=== PATIENT | female | born 1940 | race Caucasian/White ===

== ENCOUNTER 2021-04-27 15:25 | Emergency (ER) | payer MEDICARE, SELFPAY ==
[2021-04-27 15:26] VITALS: BP 119/74; PULSE 85; RESP 16; TEMP 36.7; O2SAT 95; BMI 28.3
--- NOTE | 2021-04-27 16:12 | RAD_ITS ---
STUDY: X-RAY CHEST REASON FOR EXAM: Female, 81 years old. cough DIARRHEA FOR A FEW DAYS WITH COUGH AND GENERALIZED WEAKNESS SINCE SANDRA. TECHNIQUE: Frontal portable view of the chest COMPARISON: None. FINDINGS: Mediastinal shadow is enlarged due to combination of probable cardiomegaly and large hiatal hernia. Retrocardiac portions of the lungs are obscured. There is mild increased interstitial markings in the right lower lung, probably atelectasis. Remainder the lungs are clear. There is no pneumothorax, pulmonary edema or pleural effusions. RAD/Chest 1 View (Portable) IMPRESSION: 1. Large hiatal hernia, probably cardiomegaly 2. Consider CT chest for definitive evaluation. 3. Questionable finding in the right lung, possibly atelectasis. Electronically Signed: Luc Aaron MD at 17:22 EDT Tel , Service support ,
--- NOTE | 2021-04-27 16:15 | ED.VIS.GI ---
HPI HPI - GI History of Present Illness Chief Complaint: Diarrhea Narrative Narrative: 81-year-old female presenting with general fatigue, cough, diarrhea. She states this is been worse over the last 3 days but she has had the symptoms for 7 days. She has not had a fever. She denies shortness of breath or chest pain. Patient has decreased p.o. intake which she states that is because she is not hungry. She states she has had multiple episodes of diarrhea. She has no known sick contacts with COVID-19. She has had her vaccine. Patient has not had fever, chills, body aches. Her granddaughter is here with her today and states she is very generally weak. She required assistance to get to the car and that is not normal for her. She also states that her grandmother's diet consists of crackers, tea, toast. Patient herself says she does drink a little bit of water but this not like to drink this. She has not been drinking any electrolyte drinks. She did have a Sprite today which states made her feel better. [facility] Medical History GERD (gastroesophageal reflux disease) High cholesterol Hypertension Hypothyroidism Home Medications cephalexin 500 mg PO Q12 #14 capsule 04/27/21 [Rx Last Taken Unknown] ondansetron 4 mg PO Q8H PRN PRN #14 tab 04/27/21 [Rx Last Taken Unknown] Allergy/AdvReac Type Severity Reaction Status Date / Time No Known Allergies Allergy Verified 04/27/21 15:26 Social History Smoking Status: Current every day smoker tobacco type: cigarettes ROS ROS ED Constitutional Constitutional ED: Denies chills or fever(s) ENT ENT ED: Denies rhinorrhea or sore throat Cardiovascular Cardiovascular: Denies chest pain or palpitations Respiratory/Chest Respiratory/Chest: Reports cough; Denies dyspnea or sputum Gastrointestinal Gastrointestinal: Reports diarrhea; Denies abdominal pain, nausea or vomiting Genitourinary Genitourinary ED: Denies dysuria or hematuria Musculoskeletal Musculoskeletal: Denies arthralgias, back pain, myalgias or neck pain Integumentary Denies Abrasions or rash Neurologic Neurologic: Denies headache(s) or paresthesias EXAM Physical Exam Const Vital Signs: 04/27/21 15:26 04/27/21 18:52 04/27/21 20:18 Temperature 98.0 F Temperature Source Temporal Pulse Rate 85 82 Respiratory Rate 16 20 H 18 Blood Pressure 119/74 138/92 H Blood Pressure Mean 89 107 Pulse Ox 95 97 Oxygen Delivery Method Room Air Room Air 04/27/21 20:25 Temperature Temperature Source Pulse Rate Respiratory Rate 18 Blood Pressure Blood Pressure Mean Pulse Ox Oxygen Delivery Method Positive well nourished General Appearance ED: NAD; Negative for pallor HEENT Reports moist mucous membranes normocephalic and atraumatic Eyes PERRL and EOMs intact bilaterally Resp normal respiratory effort Cardio regular rate and regular rhythm Neuro CN's II-XII intact bilaterally and moves all extremities Sensorium / Orientation: alert, oriented to person, oriented to place and oriented to time Psych mental status grossly normal and thought process normal Skin no wounds General Skin Exam: Negative for jaundice or pallor Rashes: no rashes MDM MDM MDM Narrative Medical decision making narrative: Patient presenting with concern for COVID-19 as well as diarrhea. She has generalized weakness and was differential having difficulty getting around at home. She has not had any falls. Today she tested positive for COVID-19. Chest x-ray on my interpretation shows possible infiltrate in the right lower lobe otherwise there is no acute process. Radiologist does comment on this as well as a large hiatal hernia. Patient's blood work shows that she is leukopenic and lymphopenic. Otherwise her hemoglobin hematocrit are stable. Renal function and electrolytes are normal with exception of potassium of 3.2. Patient was given 500 cc of IV fluids prior to renal function returned due to her complaint of likely dehydration secondary to diarrhea. LFTs are normal. Procalcitonin is negative. Urinalysis is positive for infection. She was given Keflex with the first dose in the ED. She was also given Zofran she feels improved. At this point she really wants to be discharged home. I do not find any reason she needs to be in the hospital other than generalized weakness. Patient was given a prescription for Zofran and Keflex. She is given return precautions. Patient stable for discharge at this time. Impression: 1. Generalized weakness 2. COVID-19 pneumonitis 3. Urinary tract infection Lab Data Attestation: I reviewed the patient's lab results. Labs: Laboratory Results - last 24 hr 04/27/21 04/27/21 04/27/21 17:10 17:10 17:10 WBC 2.6 L RBC 3.65 L Hgb 11.6 L Hct 36.0 L MCV 98.6 MCH 31.8 MCHC 32.2 RDW Std Deviation 49.7 H RDW Coeff of [place]ouzia 13.5 Plt Count 131 L MPV 10.5 Immature Gran % (Auto) 0.400 Neut % (Auto) 61.9 Lymph % (Auto) 28.5 [place] % (Auto) 8.8 Eos % (Auto) 0.0 Baso % (Auto) 0.4 Absolute Neuts (auto) 1.6 L Absolute Lymphs (auto) 0.74 L Nucleated RBC % 0 Sodium 138 Potassium 3.2 L Chloride 105 Carbon Dioxide 27.0 Anion Gap 6 BUN 15 Creatinine 0.68 Estim Creat Clear Calc 35.88 Est GFR (MDRD) Af Amer 106 Est GFR (MDRD) Non-Af 87 BUN/Creatinine Ratio 21.9 H Glucose 94 Calcium 8.5 Total Bilirubin 0.40 AST 35 ALT 22 Alkaline Phosphatase 51 Total Protein 7.9 Albumin 3.5 Globulin 4.4 H Albumin/Globulin Ratio 0.8 L Procalcitonin 0.14 H Urine Color Urine Clarity Urine pH Ur Specific [place] Urine Protein Urine Glucose (UA) Urine Ketones Urine Occult Blood Urine Nitrite Urine Bilirubin Urine Urobilinogen Ur Leukocyte Esterase Urine RBC Urine WBC Ur Squamous Epith Cells Urine Bacteria Hyaline Casts Urine Mucus COVID-19 ([place]O) 04/27/21 04/27/21 17:16 18:20 WBC RBC Hgb Hct MCV MCH MCHC RDW Std Deviation RDW Coeff of [place] Plt Count MPV Immature Gran % (Auto) Neut % (Auto) Lymph % (Auto) [place] % (Auto) Eos % (Auto) Baso % (Auto) Absolute Neuts (auto) Absolute Lymphs (auto) Nucleated RBC % Sodium Potassium Chloride Carbon Dioxide Anion Gap BUN Creatinine Estim Creat Clear Calc Est GFR (MDRD) Af Amer Est GFR (MDRD) Non-Af BUN/Creatinine Ratio Glucose Calcium Total Bilirubin AST ALT Alkaline Phosphatase Total Protein Albumin Globulin Albumin/Globulin Ratio Procalcitonin Urine Color Yellow Urine Clarity Cloudy Urine pH 6.0 Ur Specific [place] 1.020 Urine Protein 100 H Urine Glucose (UA) Normal Urine Ketones 50 H Urine Occult Blood 150 H Urine Nitrite Negative Urine Bilirubin Negative Urine Urobilinogen 1 H Ur Leukocyte Esterase 500 H Urine RBC 0-5 SEEN Urine WBC 25-50 SEEN Ur Squamous Epith Cells 0-5 SEEN Urine Bacteria 4+ Hyaline Casts 0-5 SEEN Urine Mucus 0 SEEN COVID-19 ([place]) Detected Radiography Diagnostic Testing: Radiology Impression Chest X-Ray 04/27/21 16:12 IMPRESSION: 1. Large hiatal hernia, probably cardiomegaly 2. Consider CT chest for definitive evaluation. 3. Questionable finding in the right lung, possibly atelectasis. Electronically Signed: Luc Aaron MD at 17:22 EDT Tel , Service support , Discharge Plan Triage Chief Complaint: Diarrhea Other Complaint: Cough ED Provider: Lucius Middleton Dx/Rx/DC Orders Instructions: Coronavirus Disease 2019 (COVID-19): Caring for Yourself or Others, ED CYSTITIS Female Adult Prescriptions: New ondansetron 4 mg tablet,disintegrating 4 mg PO Q8H PRN PRN (Reason: Nausea) Qty: 14 RF: 0 cephalexin 500 mg capsule 500 mg PO Q12 Qty: 14 RF: 0 Primary Care Provider: Carl Roberts Referrals: Carl Roberts MD [Primary Care Provider] - Disposition Disposition: Home, Self Care Discharge Date/Time: 04/27/21 20:31
[2021-04-27 17:27] LABS: Absolute Lymphocyte Count 0.74 X10^3/uL (0.83-4.51); Absolute Neutrophil Count 1.6 X10^3/uL (2.0-7.7); Basophil# 0.01 X10^3/uL; Basophil% 0.4 % (0-1); Hemoglobin 11.6 g/dL (12.0-15.0); Lymphocyte # 0.74 X10^3/ul (0.83-4.51); Lymphocyte % 28.5 % (19-41); Mean Corp Hgb Conc 32.2 g/dL (32-36); Mean Corpuscular Hgb 31.8 pg (27.0-32.0); Mean Corpuscular Volume 98.6 fL (81-99); Mean Platelet Vol. 10.5 fl (6.2-12.0); Monocyte# 0.23 X10^3/uL; Monocyte% 8.8 % (0-10); NRBC Flagged by Analyzer 0 % (0-5); Neutrophil # 1.61 X10^3/uL (2.7-7.7); Neutrophil % 61.9 % (47-70); Platelet Count 131 K/mm3 (150-450); RBC Distribution Width CV 13.5 % (11.6-14.6); RBC Distribution Width SD 49.7 fl (35.1-43.9); Red Blood Count 3.65 M/mm3 (4.2-5.4); White Blood Count 2.6 K/mm3 (4.4-11.0)
[2021-04-27 17:42] LABS: ALB/GLOB Ratio 0.8 RATIO (0.9-2.4); AST(SGOT) 35 U/L (15-37); Alanine Aminotransfer ALT/SGPT 22 U/L (13-56); Albumin, Serum 3.5 g/dL (3.2-5.0); Alkaline Phosphatase 51 U/L (45-117); Anion Gap 6 (5-15); BUN 15 mg/dL (7-18); BUN/Creat Ratio 21.9 RATIO (10-20); Calcium,Total 8.5 mg/dL (8.5-10.1); Chloride 105 mmol/L (98-107); Creatinine, Serum 0.68 mg/dL (0.55-1.02); EST Glomerular Filtration Rate 87 mL/min (>60); Est Glom Filt Rate - Afr Amer 106 mL/min (>60); Estimated Creatinine Clearance 35.88 ml/min; Globulin 4.4 g/dL (2.2-4.2); Glucose 94 mg/dL (74-106); Potassium 3.2 mmol/L (3.5-5.1); Protein, Total 7.9 g/dL (6.4-8.2); Sodium Level 138 mmol/L (136-145)
[2021-04-27 17:59] LABS: Procalcitonin 0.14 ng/mL (0.00-0.09)
[2021-04-27 18:31] LABS: Mucous, Urine 0 SEEN /hpf (<or=2+)
[2021-04-27 18:50] LABS: Color, Urine Yellow (Yellow); Glucose, Dipstick Normal (Normal); Ketone-Dipstick 50 mg/dl (Negative); Leukocyte Esterase-Dipstick 500 /ul (Negative); Nitrite-Dipstick Negative (Negative); Occult Blood-Urine 150 /ul (Negative); Protein-Dipstick 100 mg/dl (Negative); Urine Bilirubin Dipstick Negative (Negative); Urine Clarity Cloudy (Clear); Urine Urobilinogen 1 mg/dl (Normal)
[2021-04-27 18:52] VITALS: BP 138/92; PULSE 82; RESP 20; O2SAT 97
[2021-04-27 19:19] LABS: Hyaline Cast 0-5 SEEN /lpf (0-5)
[2021-04-27 19:20] LABS: Bacteria 4+ /hpf (None Seen); Red Blood Cells-Urine 0-5 SEEN /hpf (0-5); White Blood Cells 25-50 SEEN /hpf (0-5)
[2021-04-27 19:21] LABS: Squamous Epithelial Cells - UA 0-5 SEEN /hpf (5-10)
[2021-04-27 20:18] VITALS: RESP 18
[2021-04-27] MEDS: Cephalexin 250 MG Capsule 500 MG PO (20:24)
[2021-04-27 20:25] VITALS: RESP 18
== END 2021-04-27 20:31 | disposition home or self-care (01) ==
PROVIDERS: Emergency Provider Student in an Organized Health Care Education/Training Program; PCP Family Medicine
DX: U07.1 COVID-19 (principal); J12.82 Pneumonia due to coronavirus disease 2019; R53.1 Weakness; N39.0 Urinary tract infection, site not specified; F17.210 Nicotine dependence, cigarettes, uncomplicated
CPT/HCPCS: 71045; 80053; 81001; 84145; 85025; 87077; 87086; 87088; 87186; 87635; 96360; 96361; 99285; J7030; U0005; A4216; U0003

== ENCOUNTER → 2021-05-03 | Outpatient (CLI) | payer MEDICARE, SELFPAY ==
[2021-05-03 11:48] LABS: Bacteria 0 SEEN /hpf (None Seen); Mucous, Urine 0 SEEN /hpf (<or=2+); Red Blood Cells-Urine 0 SEEN /hpf (0-5); White Blood Cells 0 SEEN /hpf (0-5)
[2021-05-03 12:10] LABS: Color, Urine Yellow (Yellow); Glucose, Dipstick Normal (Normal); Ketone-Dipstick 5 mg/dl (Negative); Leukocyte Esterase-Dipstick Negative /ul (Negative); Nitrite-Dipstick Negative (Negative); Occult Blood-Urine Negative /ul (Negative); Protein-Dipstick 30 mg/dl (Negative); Specific Gravity, Urine 1.015 (1.002-1.030); Urine Bilirubin Dipstick Negative (Negative); Urine Clarity Clear (Clear); Urine Urobilinogen 4 mg/dl (Normal); Urine pH 6.5 (5.0 - 8.0)
[2021-05-03 12:18] LABS: Squamous Epithelial Cells - UA 0-5 SEEN /hpf (5-10)
== END | disposition home or self-care (01) ==
LOC: LABSPEC 11:41
PROVIDERS: PCP Family Medicine; Referring Provider Family Medicine; Visit Provider Family Medicine
DX: N39.0 Urinary tract infection, site not specified (principal)
CPT/HCPCS: 81001; 87077; 87086; 87088

== ENCOUNTER 2021-05-09 10:43 | Inpatient (IN) | payer MEDICARE, OTHER, SELFPAY ==
[2021-05-09] VITALS (13 sets, daily range): BP systolic 111–137; BP diastolic 48–89; PULSE 63–86; RESP 19–36; TEMP 36.1–37.4; O2SAT 86–993; BMI 29.2; BMI 28.2
--- NOTE | 2021-05-09 11:24 | EKG12_ITS ---
Test Reason : SOB Blood Pressure : / mmHG Vent. Rate : 065 BPM Atrial Rate : 065 BPM P-R Int : 152 ms QRS Dur : 092 ms QT Int : 440 ms P-R-T Axes : 037 081 061 degrees QTc Int : 457 ms Normal sinus rhythm Normal ECG Confirmed by STONEY MOREJON, ANDREW ([id number]), editor continuity and script OLIVIER ALARCON ([id number]) on 05/12/2021 8:09:12 AM Referred By: SIRISHA Confirmed By:ANDREW LUA MD
--- NOTE | 2021-05-09 11:28 | NURSING ---
NO OLD EKGS
--- NOTE | 2021-05-09 11:52 | ED.RN ---
PER DR TINSLEY, D/C [facility].
--- NOTE | 2021-05-09 11:54 | EDS_ITS ---
HPI History of Present Illness Chief Complaint: Shortness of Breath Narrative Narrative: 81-year-old female presenting with hypoxia, cough, generalized malaise. She was diagnosed with COVID-19 previously. She says symptoms for 19 days. Patient's daughter states that she is not eating and drinking well. She has difficulty getting around. She is wearing depends currently and this is not her baseline. She has not had a fever but does continue to have a cough. She states intermittently she brings something up. Patient denies any new diarrhea. She denies urinary complaints. Her fever has resolved. Patient's daughter states that she cares for her 65-year-old [id number] and she is unable to take care of her currently. She cannot take of herself at this time. They were seen by Dr. Roberts today who sent him in for admission. The daughter states that she was 65% on room air in office. Apparently the patient had already received a course of dexamethasone previously. [facility] Medical History GERD (gastroesophageal reflux disease) High cholesterol Hypertension Hypothyroidism Home Medications atenolol 25 mg PO DAILY 05/09/21 [History Last Taken Unknown] calcium carbonate-vitamin D3 [Calcium 500 + D] 1 tab PO DAILY 05/09/21 [History Last Taken 05/08/21] glucosamine HCl-vitamin D3 1 tab PO DAILY 05/09/21 [History Last Taken 05/08/21] levothyroxine 88 mcg PO MOTUWETHFRSA 05/09/21 [History Last Taken Unknown] lovastatin 20 mg PO DAILY 05/09/21 [History Last Taken 05/09/21] multivitamin 1 tab PO DAILY 05/09/21 [History Last Taken 05/09/21] nifedipine 30 mg PO DAILY 05/09/21 [History Last Taken Unknown] omeprazole 20 mg PO DAILY 05/09/21 [History Last Taken 05/09/21] tramadol 50 mg PO BID 05/09/21 [History Last Taken 05/09/21] Allergy/AdvReac Type Severity Reaction Status Date / Time No Known Allergies Allergy Verified 05/09/21 10:48 Social History Smoking Status: Current every day smoker tobacco type: cigarettes ROS ROS ED Constitutional Constitutional ED: Denies chills or fever(s) Eyes Eyes: Denies blurry vision or diplopia ENT ENT ED: Denies rhinorrhea or sore throat Cardiovascular Cardiovascular: Denies chest pain or palpitations Respiratory/Chest Respiratory/Chest: Reports cough, dyspnea, dyspnea on exertion and sputum Gastrointestinal Gastrointestinal: Reports diarrhea; Denies abdominal pain, nausea or vomiting Genitourinary Genitourinary ED: Denies dysuria or hematuria Musculoskeletal Musculoskeletal: Denies arthralgias, back pain, myalgias or neck pain Integumentary Denies Abrasions or rash Neurologic Neurologic: Denies headache(s) or paresthesias Psychiatric Psychiatric: Denies anxiety or depression EXAM Physical Exam Const Vital Signs: 05/09/21 10:44 05/09/21 10:47 05/09/21 11:33 Temperature 97.0 F L 97.0 F L Temperature Source Temporal Temporal Pulse Rate 86 86 Respiratory Rate 36 H 36 H Respiratory Effort Short of Breath Labored Respiratory Depth Shallow Respiratory Pattern Normal Blood Pressure 115/60 115/60 Blood Pressure Mean 78 78 Pulse Ox 86 86 Oxygen Delivery Method Room Air Room Air Oxygen Flow Rate (L/min) 05/09/21 11:34 05/09/21 11:36 05/09/21 12:24 Temperature 98 F 97.2 F L Temperature Source Temporal Temporal Pulse Rate 63 Respiratory Rate 24 H Respiratory Effort Respiratory Depth Respiratory Pattern Blood Pressure 111/89 H Blood Pressure Mean 96 Pulse Ox 91 Oxygen Delivery Method Non-Rebreather Nasal Cannula Oxygen Flow Rate (L/min) 05/09/21 13:10 05/09/21 14:15 05/09/21 14:54 Temperature 99.3 F H 98.3 F Temperature Source Temporal Temporal Pulse Rate 67 72 Respiratory Rate 28 H 20 H Respiratory Effort Respiratory Depth Respiratory Pattern Blood Pressure 118/58 L 124/54 H Blood Pressure Mean 78 77 Pulse Ox 90 Oxygen Delivery Method Nasal Cannula Nasal Cannula Oxygen Flow Rate (L/min) 14 05/09/21 15:10 05/09/21 15:11 Temperature 98.9 F 98.9 F Temperature Source Temporal Temporal Pulse Rate 76 76 Respiratory Rate 25 H 25 H Respiratory Effort Respiratory Depth Respiratory Pattern Blood Pressure 113/66 113/66 Blood Pressure Mean 81 81 Pulse Ox 92 92 Oxygen Delivery Method Nasal Cannula Nasal Cannula Oxygen Flow Rate (L/min) Positive well nourished General Appearance ED: NAD; Negative for pallor HEENT Reports dry mucous membranes atraumatic Mouth ED: Yes dry mucous membranes Mouth: dry mucous membranes Eyes PERRL and EOMs intact bilaterally Neck no lymphadenopathy and supple Resp normal respiratory effort Auscultation: rales diffuse Cardio regular rate and regular rhythm GI non-tender Palpation: soft Neuro oriented x3 Sensorium / Orientation: alert Psych mental status grossly normal Thought Process: normal thought process Skin General Skin Exam: Negative for jaundice or pallor Rashes: no rashes MDM MDM MDM Narrative Medical decision making narrative: Patient presenting after having COVID-19 with hypoxia and generalized weakness and inability to care for herself. She is accompanied by her daughter. Given her vital signs septic work-up was pursued. EKG on my interpretation shows a sinus rhythm with a ventricular rate of 65 bpm without ischemic changes. Chest x-ray on my interpretation shows bilateral pulmonary infiltrates. The radiologist does agree. CBC shows a slight leukocytosis at 11.3. Hemoglobin appears stable. Platelets are normal. Renal function and electrolytes are also normal. LFTs within normal limits. Lactic acid elevated at 2.7. Patient was given 500 cc of IV fluids. Urinalysis is negative. Patient currently awaiting D-dimer. Patient was discussed with the hospitalist for follow-up on a D-dimer and possibly CTA if needed. Since patient is requiring significant oxygen and is generally weak and unable to care for self with feel she would benefit from inpatient therapy. Impression: 1. COVID-19 pneumonitis 2. Hypoxic respiratory failure 3. Generalized weakness. 4. Lactic acidosis Lab Data Attestation: I reviewed the patient's lab results. Labs: Laboratory Results - last 24 hr 05/09/21 05/09/21 05/09/21 11:34 11:34 11:34 WBC 11.3 H RBC 4.03 L Hgb 12.7 Hct 39.7 MCV 98.5 MCH 31.5 MCHC 32.0 RDW Std Deviation 50.1 H RDW Coeff of [place] 13.9 Plt Count 119 L MPV 11.5 Immature Gran % (Auto) 0.600 Neut % (Auto) 92.5 H Lymph % (Auto) 4.0 L [place] % (Auto) 2.7 Eos % (Auto) 0.1 Baso % (Auto) 0.1 Absolute Neuts (auto) 10.5 H Absolute Lymphs (auto) 0.45 L Nucleated RBC % 0 PT Cancelled INR Cancelled APTT Cancelled Sodium 137 Potassium 4.1 Chloride 103 Carbon Dioxide 26.0 Anion Gap 8 BUN 28 H Creatinine 0.81 Estim Creat Clear Calc 46.24 Est GFR (MDRD) Af Amer 87 Est GFR (MDRD) Non-Af 72 BUN/Creatinine Ratio 34.4 H Glucose 133 H Lactic Acid Calcium 8.7 Total Bilirubin 1.00 AST 36 ALT 36 Alkaline Phosphatase 70 Total Protein 7.6 Albumin 2.8 L Globulin 4.8 H Albumin/Globulin Ratio 0.6 L Urine Color Urine Clarity Urine pH Ur Specific [place] Urine Protein Urine Glucose (UA) Urine Ketones Urine Occult Blood Urine Nitrite Urine Bilirubin Urine Urobilinogen Ur Leukocyte Esterase Urine RBC Urine WBC Ur Squamous Epith Cells Urine Bacteria Urine Mucus 05/09/21 05/09/21 05/09/21 11:34 12:35 13:00 WBC RBC Hgb Hct MCV MCH MCHC RDW Std Deviation RDW Coeff of [place] Plt Count MPV Immature Gran % (Auto) Neut % (Auto) Lymph % (Auto) [place] % (Auto) Eos % (Auto) Baso % (Auto) Absolute Neuts (auto) Absolute Lymphs (auto) Nucleated RBC % PT 16.0 H INR 1.4 APTT 29.1 Sodium Potassium Chloride Carbon Dioxide Anion Gap BUN Creatinine Estim Creat Clear Calc Est GFR (MDRD) Af Amer Est GFR (MDRD) Non-Af BUN/Creatinine Ratio Glucose Lactic Acid 2.7 H* Calcium Total Bilirubin AST ALT Alkaline Phosphatase Total Protein Albumin Globulin Albumin/Globulin Ratio Urine Color [place] Urine Clarity Sl. Cloudy Urine pH 5.0 Ur Specific [place] 1.015 Urine Protein 30 H Urine Glucose (UA) Normal Urine Ketones Negative Urine Occult Blood Negative Urine Nitrite Negative Urine Bilirubin Negative Urine Urobilinogen 1 H Ur Leukocyte Esterase 100 H Urine RBC 0 SEEN Urine WBC 0-5 SEEN Ur Squamous Epith Cells 0-5 SEEN Urine Bacteria 0 SEEN Urine Mucus 0 SEEN Radiography Diagnostic Testing: Radiology Impression Chest X-Ray 05/09/21 12:00 IMPRESSION: Bilateral pneumonia. Electronically Signed: Hong Almanza MD at 12:14 EDT Tel , Service support , Discharge Plan Triage Chief Complaint: Shortness of Breath ED Provider: Lucius Middleton Dx/Rx/DC Orders Prescriptions: No Action nifedipine 30 mg tablet extended release 24hr 30 mg PO DAILY RF: 0 atenolol 25 mg tablet 25 mg PO DAILY RF: 0 multivitamin Tablet 1 tab PO DAILY RF: 0 tramadol 50 mg tablet 50 mg PO BID RF: 0 levothyroxine 88 mcg tablet 88 mcg PO MOTUWETHFRSA RF: 0 omeprazole 20 mg Capsule,Delayed Release(Dr/Ec) 20 mg PO DAILY RF: 0 lovastatin 20 mg tablet 20 mg PO DAILY RF: 0 calcium carbonate-vitamin D3 [Calcium 500 + D] 500 mg(1,250mg) -200 unit Tablet 1 tab PO DAILY RF: 0 glucosamine HCl-vitamin D3 1,000-200 mg-unit Tablet 1 tab PO DAILY RF: 0 Primary Care Provider: Carl Roberts
[2021-05-09 11:56] LABS: Absolute Lymphocyte Count 0.45 X10^3/uL (0.83-4.51); Absolute Neutrophil Count 10.5 X10^3/uL (2.0-7.7); Basophil# 0.01 X10^3/uL; Basophil% 0.1 % (0-1); Eosinophil# 0.01 X10^3/uL; Eosinophils% 0.1 % (0-5); Hematocrit 39.7 % (37-47); Hemoglobin 12.7 g/dL (12.0-15.0); Lymphocyte # 0.45 X10^3/ul (0.83-4.51); Mean Corpuscular Hgb 31.5 pg (27.0-32.0); Mean Corpuscular Volume 98.5 fL (81-99); Mean Platelet Vol. 11.5 fl (6.2-12.0); Monocyte# 0.31 X10^3/uL; Monocyte% 2.7 % (0-10); NRBC Flagged by Analyzer 0 % (0-5); Neutrophil # 10.46 X10^3/uL (2.7-7.7); Neutrophil % 92.5 % (47-70); POSITIVE DIFFERENTIAL YES; Platelet Count 119 K/mm3 (150-450); RBC Distribution Width CV 13.9 % (11.6-14.6); RBC Distribution Width SD 50.1 fl (35.1-43.9); Red Blood Count 4.03 M/mm3 (4.2-5.4); White Blood Count 11.3 K/mm3 (4.4-11.0)
[2021-05-09 11:57] LABS: Differential Indicated SCAN CRITERIA MET
--- NOTE | 2021-05-09 12:00 | RAD_ITS ---
STUDY: X-RAY CHEST REASON FOR EXAM: Female, 81 years old. hypoxia TECHNIQUE: Single AP portable view of the chest. COMPARISON: 04/27/2021 FINDINGS: Alveolar opacities in both lungs consistent with bilateral pneumonia. There is no demonstrated pleural abnormality. There is moderate cardiac enlargement. Large hiatal hernia. Normal visualized pulmonary arteries. Normal visualized aortic arch and descending thoracic aorta. Normal visualized thoracic spine. Normal visualized ribs, clavicles, and shoulders. There is no demonstrated abnormality of the visualized soft tissue structures of the upper abdomen. RAD/Chest 1 View (Portable) IMPRESSION: Bilateral pneumonia. Electronically Signed: Hong Almanza MD at 12:14 EDT Tel , Service support ,
--- NOTE | 2021-05-09 12:06 | NURSING ---
BLUE TOP HEMOLIZED
[2021-05-09 12:10] LABS: ALB/GLOB Ratio 0.6 RATIO (0.9-2.4); AST(SGOT) 36 U/L (15-37); Alanine Aminotransfer ALT/SGPT 36 U/L (13-56); Albumin, Serum 2.8 g/dL (3.2-5.0); Alkaline Phosphatase 70 U/L (45-117); Anion Gap 8 (5-15); BUN 28 mg/dL (7-18); BUN/Creat Ratio 34.4 RATIO (10-20); Calcium,Total 8.7 mg/dL (8.5-10.1); Chloride 103 mmol/L (98-107); Creatinine, Serum 0.81 mg/dL (0.55-1.02); EST Glomerular Filtration Rate 72 mL/min (>60); Est Glom Filt Rate - Afr Amer 87 mL/min (>60); Estimated Creatinine Clearance 46.24 ml/min; Globulin 4.8 g/dL (2.2-4.2); Glucose 133 mg/dL (74-106); Potassium 4.1 mmol/L (3.5-5.1); Protein, Total 7.6 g/dL (6.4-8.2); Sodium Level 137 mmol/L (136-145)
[2021-05-09 12:31] LABS: Lactic Acid 2.7 mmol/L (0.4-1.9)
[2021-05-09 12:55] LABS: International Normalized Ratio 1.4
[2021-05-09 12:56] LABS: Partial Thromboplast Time 29.1 Seconds (24.1-36.2)
[2021-05-09 13:05] LABS: Bacteria 0 SEEN /hpf (None Seen); Mucous, Urine 0 SEEN /hpf (<or=2+); Red Blood Cells-Urine 0 SEEN /hpf (0-5)
[2021-05-09 13:08] LABS: Color, Urine Amber (Yellow); Glucose, Dipstick Normal (Normal); Ketone-Dipstick Negative (Negative); Leukocyte Esterase-Dipstick 100 /ul (Negative); Nitrite-Dipstick Negative (Negative); Occult Blood-Urine Negative /ul (Negative); Protein-Dipstick 30 mg/dl (Negative); Specific Gravity, Urine 1.015 (1.002-1.030); Urine Bilirubin Dipstick Negative (Negative); Urine Clarity Sl. Cloudy (Clear); Urine Urobilinogen 1 mg/dl (Normal)
[2021-05-09 13:24] LABS: Squamous Epithelial Cells - UA 0-5 SEEN /hpf (5-10); White Blood Cells 0-5 SEEN /hpf (0-5)
--- NOTE | 2021-05-09 14:59 | HP.PCM.HOS_ITS ---
HPI - General General Date of Admission: 05/09/21 Date of Service: 05/09/21 Chief Complaint: Generalised weakness, progressive SOB HPI Narrative STEFANO WASHINGTON, is a 81 F who presents with progressive SOB which started 22 days ago. She complained of fatigue, cough, but denied fever or chills. She had episodes of diarrhea. That has since resolved. Patient stated that she got her Covid vaccine some months ago. Patient was seen in her primary care doctor's office and found to be hypoxic, saturating 65% on room air. She is already on dexamethasone. Her vitals were stable except for oxygen. She was saturating on 12 L of oxygen. Her admitting blood work showed leukocytosis, patient is on Decadron. D-dimer is elevated more than 20. CMP shows elevated blood glucose, lactic acid 1.5. Chest x-ray shows bilateral pneumonia. CTA of the chest showed bilateral PE, very large hiatal hernia containing the entire stomach and the loops of bowel PFSH Medical History GERD (gastroesophageal reflux disease) High cholesterol Hypertension Hypothyroidism Home Medications atenolol 25 mg PO DAILY 05/09/21 [History Last Taken 05/09/21] calcium carbonate-vitamin D3 [Calcium 500 + D] 1 tab PO DAILY 05/09/21 [History Last Taken 05/08/21] glucosamine HCl-vitamin D3 1 tab PO DAILY 05/09/21 [History Last Taken 05/08/21] levothyroxine 88 mcg PO MOTUWETHFRSA 05/09/21 [History Last Taken Unknown] lovastatin 20 mg PO DAILY 05/09/21 [History Last Taken 05/09/21] multivitamin 1 tab PO DAILY 05/09/21 [History Last Taken 05/09/21] nifedipine 30 mg PO DAILY 05/09/21 [History Last Taken 05/09/21] omeprazole 20 mg PO DAILY 05/09/21 [History Last Taken 05/09/21] tramadol 50 mg PO BID 05/09/21 [History Last Taken 05/09/21] Allergy/AdvReac Type Severity Reaction Status Date / Time No Known Allergies Allergy Verified 05/09/21 10:48 adopted no surgical history Social History (Updated 05/09/21 @ 18:[address] Esthela Anderson MD) household members: none Smoking Status: Former smoker alcohol intake: never substance use type: does not use ROS ROS Narrative Constitutional: Reports: Malaise, Weakness, Fatigue. Denies: Anorexia, Chills, Fever, Night Sweats, Weight Change Eyes: Denies: Blurred vision, Cataracts, Conjunctivae Inflammation, Pain, Redness, Vision Change HEENT: Denies: Difficulty Hearing, Difficulty Swallowing, Head Aches, Hearing Changes, Sinus Congestion, Sinus Drainage Cardiovascular: Denies: Chest Pain, Orthopnea, Palpitations Respiratory: See HPI Gastrointestinal: Denies: Abdominal Pain, Nausea, Vomiting Genitourinary: Denies: Dysuria Musculoskeletal: Denies: Joint Pain, Joint stiffness, Joint swelling, Joint Tenderness Skin: Denies: Rash, Wounds Neurological: Denies: Numbness, Tingling, Focal weakness Vital Signs Vital Signs Vital Signs: 05/09/21 10:44 05/09/21 10:47 05/09/21 11:33 Temperature 97.0 F L 97.0 F L Temperature Source Temporal Temporal Pulse Rate 86 86 Respiratory Rate 36 H 36 H Respiratory Effort Short of Breath Labored Respiratory Depth Shallow Respiratory Pattern Normal Blood Pressure 115/60 115/60 Blood Pressure Mean 78 78 Pulse Ox 86 86 Oxygen Delivery Method Room Air Room Air Oxygen Flow Rate (L/min) 05/09/21 11:34 05/09/21 11:36 05/09/21 12:24 Temperature 98 F 97.2 F L Temperature Source Temporal Temporal Pulse Rate 63 Respiratory Rate 24 H Respiratory Effort Respiratory Depth Respiratory Pattern Blood Pressure 111/89 H Blood Pressure Mean 96 Pulse Ox 91 Oxygen Delivery Method Non-Rebreather Nasal Cannula Oxygen Flow Rate (L/min) 05/09/21 13:10 05/09/21 14:15 05/09/21 14:54 Temperature 99.3 F H 98.3 F Temperature Source Temporal Temporal Pulse Rate 67 72 Respiratory Rate 28 H 20 H Respiratory Effort Respiratory Depth Respiratory Pattern Blood Pressure 118/58 L 124/54 H Blood Pressure Mean 78 77 Pulse Ox 90 Oxygen Delivery Method Nasal Cannula Nasal Cannula Oxygen Flow Rate (L/min) 14 Weight Weight: 77.111 kg Body Mass Index (BMI) 29.2 Physical Exam Narrative Physical exam: General: Alert, Oriented x3, Cooperative, appears unwell, frail, on 12 L of oxygen, moderately dehydrated HEENT: Atraumatic Oral: Dry oral mucosa Neck: Supple Lungs: Diminished to auscultation Cardiovascular: HS I+II, regular, no murmurs Abdomen: Bowel Sounds Present, Soft, Non Tender Extremities: No edema Results Lab / Micro Data Result Diagrams: 05/09/21 11:34 05/09/21 11:34 Labs: Laboratory Results - last 24 hr 05/09/21 11:34: WBC 11.3 H, RBC 4.03 L, Hgb 12.7, Hct 39.7, MCV 98.5, MCH 31.5, MCHC 32.0, RDW Std Deviation 50.1 H, RDW Coeff of Fouzia 13.9, Plt Count 119 L, MPV 11.5, Immature Gran % (Auto) 0.600, Neut % (Auto) 92.5 H, Lymph % (Auto) 4.0 L, [place] % (Auto) 2.7, Eos % (Auto) 0.1, Baso % (Auto) 0.1, Absolute Neuts (auto) 10.5 H, Absolute Lymphs (auto) 0.45 L, Nucleated RBC % 0 05/09/21 11:34: PT Cancelled, INR Cancelled, APTT Cancelled 05/09/21 11:34: Sodium 137, Potassium 4.1, Chloride 103, Carbon Dioxide 26.0, Anion Gap 8, BUN 28 H, Creatinine 0.81, Estim Creat Clear Calc 46.24, Est GFR (MDRD) Af Amer 87, Est GFR (MDRD) Non-Af 72, BUN/Creatinine Ratio 34.4 H, Glucose 133 H, Calcium 8.7, Total Bilirubin 1.00, AST 36, ALT 36, Alkaline Phosphatase 70, Total Protein 7.6, Albumin 2.8 L, Globulin 4.8 H, Albumin/Globulin Ratio 0.6 L 05/09/21 11:34: Lactic Acid 2.7 H* 05/09/21 12:35: PT 16.0 H, INR 1.4, APTT 29.1 05/09/21 13:00: Urine Color Korin, Urine Clarity Sl. Cloudy, Urine pH 5.0, Ur Specific [place] 1.015, Urine Protein 30 H, Urine Glucose (UA) Normal, Urine Ketones Negative, Urine Occult Blood Negative, Urine Nitrite Negative, Urine Bilirubin Negative, Urine Urobilinogen 1 H, Ur Leukocyte Esterase 100 H, Urine RBC 0 SEEN, Urine WBC 0-5 SEEN, Ur Squamous Epith Cells 0-5 SEEN, Urine Bacteria 0 SEEN, Urine Mucus 0 SEEN Radiology Impression Chest X-Ray 05/09/21 12:00 IMPRESSION: Bilateral pneumonia. Electronically Signed: Hong Almanza MD at 12:14 EDT Tel , Service support , Assessment & Plan Assessment/Plan (1) Acute respiratory failure with hypoxia: (2) Pulmonary embolism: QUALIFIERS: Chronicity: acute Acute cor pulmonale presence: without acute cor pulmonale Pulmonary embolism type: other Qualified Code(s): I26.99 - Other pulmonary embolism without acute cor pulmonale (3) Pneumonia due to severe acute respiratory syndrome coronavirus 2 (SARS-CoV-2): PLAN: 1. Acute hypoxic respiratory failure secondary to acute COVID-19 pneumonia/acute bilateral PE Patient has had symptoms of Covid more than 22 days Diagnosed with Covid on 04/27/21 Patient is vaccinated Patient currently on Decadron, will continue same Will treat acute PE Encourage use of incentive spirometer 2. Acute PE likely secondary to coagulopathy from acute COVID-19 infection Will continue on subcu Lovenox twice daily, consider transition to oral anticoagulants if patient continues to be stable 3. Debility related to the above PT/OT to evaluate and treat, gentle IV fluids 4. Hypertension/hypothyroidism/hyperlipidemia/GERD/chronic pain syndrome, remained stable Continue atenolol, levothyroxine, lovastatin, nifedipine, tramadol I discussed and explained in details the various types of CODE STATUS-full code, DNR CCA, DNR CC. Patient chose DNR CCA, no intubation. She does not want to be intubated in the event of cardiopulmonary arrest. She wants to be kept comfortable. Time spent discussing CODE STATUS 16 minutes Charges/Coding Visit Charges Inpatient E&M: 45976 Init Hosp L3 Procedures Hospitalists Procedures: 29671 Advncd Care Plan 30 Min
--- NOTE | 2021-05-09 15:16 | NURSING ---
PCU [facility] COVID 19, HYPOXIA
[2021-05-09 15:50] LABS: Reflex Lactate? Y
[2021-05-09 15:59] LABS: D-Dimer Quantitative (DVT/PE) > 20.00 FEU/ug/m (0.27-0.49)
--- NOTE | 2021-05-09 16:01 | CT_ITS ---
STUDY: CTA CHEST REASON FOR EXAM: Female, 81 years old. hypoxia RADIATION DOSAGE (If Supplied By Facility): CTDIvol = ( 12.66 ) mGy, DLP = ( 384.15 ) mGycm TECHNIQUE: The examination was performed with the intravenous administration of IV 75mL Isovue-370. Post-processing of the angiographic images was performed, with multiplanar reformation and 3D reconstruction. Individualized dose optimization techniques were used for this CT. COMPARISON: Chest x-ray earlier today FINDINGS: Normal enhancement of the main pulmonary artery and right and left pulmonary arteries. Normal enhancement of the bilateral peripheral pulmonary arteries. Small branching filling defect within the descending left pulmonary artery consistent with pulmonary embolism. Filling defect within the posterior basal branches of the descending right pulmonary artery consistent with pulmonary embolism. Normal thoracic aorta and visualized great vessels. There is no demonstrated aortic dissection. Normal heart and pericardium. Large hiatal hernia containing the entire stomach and abdominal loops of bowel. Normal hilar regions. Normal visualized trachea and bronchi. The lungs are well expanded. Bilateral patchy peripheral groundglass opacities consistent with subsegmental atelectasis or pneumonitis. Normal pleura. Normal chest wall structures. Normal osseous structures. Normal visualized upper abdomen. CT/CTA Chest W/WO Contrast IMPRESSION: 1. Positive for small pulmonary emboli bilaterally. 2. Bilateral subsegmental atelectasis or pneumonitis. Commonly reported imaging features of May 27 pneumonia are present. Other processes such as influenza pneumonia and organized pneumonia from drug toxicity or connective tissue disease can cause a similar imaging pattern. 3. Very large hiatal hernia containing the entire stomach and other loops of bowel. N.B. : The above Results were Read Back by Hong Almanza MD to Lucius Middleton DO, and understanding confirmed on 05/09/2021 17:07:56 (ET). Electronically Signed: Hong Almanza MD at 17:09 EDT Tel , Service support ,
[2021-05-09 16:36] LABS: Lactic Acid 1.5 mmol/L (0.4-1.9)
--- NOTE | 2021-05-09 18:09 | ED.RN ---
CONTACT DAUGHTER STEFANO WITH UPDATES,
--- NOTE | 2021-05-09 19:34 | PCS.PANDOC ---
PANDEMIC DOCUMENTATION INITIATED: Date: 05/09/2021 Time: 1929
[2021-05-09] MEDS: 0.9% Normal Saline 1,000 ML 50 ML IV (20:02)
[2021-05-09 20:44] LABS: BNP,B-Type NATRIURETIC PEPTIDE 121.7 pg/mL (0-100)
[2021-05-09] MEDS: dexAMETHasone 4 MG Tablet 6 MG PO (22:15)
[2021-05-09] MEDS: traMADol 50 MG Tablet PO (22:16)
[2021-05-09] MEDS: Enoxaparin 80 MG/0.8 ML Syringe SC (22:16)
[2021-05-10] VITALS (14 sets, daily range): BP systolic 117–128; BP diastolic 61–70; PULSE 64–811; RESP 12–26; TEMP 35.4–36.8; O2SAT 85–100
[2021-05-10 05:39] LABS: Absolute Lymphocyte Count 0.22 X10^3/uL (0.83-4.51); Absolute Neutrophil Count 7.9 X10^3/uL (2.0-7.7); Basophil# 0.01 X10^3/uL; Basophil% 0.1 % (0-1); Hematocrit 36.1 % (37-47); Hemoglobin 11.3 g/dL (12.0-15.0); Lymphocyte # 0.22 X10^3/ul (0.83-4.51); Lymphocyte % 2.7 % (19-41); Mean Corp Hgb Conc 31.3 g/dL (32-36); Mean Corpuscular Hgb 31.8 pg (27.0-32.0); Mean Corpuscular Volume 101.7 fL (81-99); Mean Platelet Vol. 11.2 fl (6.2-12.0); Monocyte# 0.09 X10^3/uL; Monocyte% 1.1 % (0-10); NRBC Flagged by Analyzer 0 % (0-5); Neutrophil # 7.85 X10^3/uL (2.7-7.7); Neutrophil % 95.6 % (47-70); POSITIVE DIFFERENTIAL YES; Platelet Count 115 K/mm3 (150-450); RBC Distribution Width CV 14.1 % (11.6-14.6); Red Blood Count 3.55 M/mm3 (4.2-5.4); White Blood Count 8.2 K/mm3 (4.4-11.0)
[2021-05-10 05:44] LABS: Differential Indicated SCAN CRITERIA MET
[2021-05-10 06:13] LABS: ALB/GLOB Ratio 0.5 RATIO (0.9-2.4); AST(SGOT) 25 U/L (15-37); Alanine Aminotransfer ALT/SGPT 28 U/L (13-56); Albumin, Serum 2.1 g/dL (3.2-5.0); Alkaline Phosphatase 64 U/L (45-117); Anion Gap 8 (5-15); BUN 17 mg/dL (7-18); BUN/Creat Ratio 28.5 RATIO (10-20); Chloride 106 mmol/L (98-107); EST Glomerular Filtration Rate 102 mL/min (>60); Est Glom Filt Rate - Afr Amer 124 mL/min (>60); Estimated Creatinine Clearance 37.45 ml/min; Globulin 4.2 g/dL (2.2-4.2); Glucose 127 mg/dL (74-106); Potassium 4.8 mmol/L (3.5-5.1); Protein, Total 6.3 g/dL (6.4-8.2); Sodium Level 138 mmol/L (136-145)
[2021-05-10 06:24] LABS: Differential Comment SCANNED
[2021-05-10] MEDS: NIFEdipine 30 MG Tablet PO (10:08)
[2021-05-10] MEDS: traMADol 50 MG Tablet PO ×2 (10:08→21:08)
[2021-05-10] MEDS: Enoxaparin 80 MG/0.8 ML Syringe SC ×2 (10:09→21:08)
[2021-05-10] MEDS: Levothyroxine 88 MCG Tablet PO (10:09)
[2021-05-10] MEDS: Atorvastatin Calcium 10 MG Tablet 5 MG PO (10:09)
[2021-05-10] MEDS: Pantoprazole Sodium 20 MG Tablet PO (10:09)
[2021-05-10] MEDS: Atenolol 25 MG Tablet PO (10:09)
[2021-05-10] MEDS: dexAMETHasone 4 MG Tablet 6 MG PO (10:09)
--- NOTE | 2021-05-10 13:15 | CASEMGMT ---
MICH CARRILLO [employer] CM to room to meet with patient for initial transition planning/care coordination assessment. MICH CARRILLO introduced self and role at [facility]. Pt voices understanding and consents to assessment at this time. Pt resting in bed in no distress at this time. BIPAP mask in place. Pt is A/O at this time and answers all questions appropriately. Care providers, pharmacy, and demographics verified/updated at this time. Pt had COVID testing done @ [facility] in [place] on 04/27/21 PCP: Dr Roberts Specialists: none Preferred Pharmacy: [facility] Insurance: [facility] Prescription Benefit: Pt states she is not sure if she has rx benefits/coverage. Living Will/HPOA: Pt has both LW and HPOA, who is her daughter, Deisy Quezada LNOK: dtr/POA, Deisy Quezada Living Arrangements: Pt lives w/her 65 yr-old sis-in-law, who pt takes care of. Pt's dtr, is taking care of her while pt is hospitalized. Pt independent w/ADL's and IADL's prior to recent illness w/COVID. Pt states none of her family members have been ill. Dtr can assist pt/ bring groceries/supplies as needed. Transportation: Pt states drives self and states no transportation concerns at this time. Dtr will take her home @ d/c DME: States has the following DME: shower chair, cane, walker, W/C, medical alert Pt states no need for further DME at this time. Pt may need home O2 @ d/c. Discussed local DME companies. Pt states she would decide on that later, if needed. HHC/SNF: No hx of either. Pt states she prefers to d/c home, if able. When asked pt, if she is still weak when medically ready for discharge and SNF recommended by therapy, if she would want to go to SNF. Pt stated, I might consider it. Lets cross that when it comes time for it. CM to follow for home oxygen needs and any further discharge planning/needs. PLAN: TBD. Pt is weak at this time. PT/OT evals pending. Pt prefers to d/c home. May be interested in HHC. States may consider SNF, if needed. Asher GUAMANN MICH CARRILLO
--- NOTE | 2021-05-10 14:23 | PN.HOSP_ITS ---
Subjective Subjective Declining respiratory status. Patient was on 15 L nasal cannula but then transition over to BiPAP. Breathing comfortably at this time. She states that she has been vaccinated for COVID-19 with a 2 shot regimen but does not know which type. Her symptoms began April 27. Objective Data Objective Data Vital Signs: Vital Signs Temp Pulse Resp BP Pulse Ox 36.7 C 76 26 H 122/66 H 91 05/10/21 10:06 05/10/21 10:59 05/10/21 10:25 05/10/21 10:06 05/10/21 10:25 Oxygen Flow Rate (L/min) 15 Oxygen Delivery Method Nasal Cannula Weight: 75.2 kg Body Mass Index (BMI) 28.2 Intake & Output: Intake and Output for Last 24 Hours 05/08/21 05/09/21 05/10/21 23:59 23:59 23:59 Intake Total 620 / 620 Output Total 275 / 275 Balance 620 / 620 -275 / -275 Lab / Micro Data Result Diagrams: 05/10/21 05:10 05/10/21 05:10 Labs: Laboratory Results - last 24 hr 05/09/21 11:34: B-Natriuretic Peptide 121.7 H 05/09/21 12:35: D-Dimer Quant (PE/DVT) > 20.00 H* 05/09/21 13:00: Urine Color Korin, Urine Clarity Sl. Cloudy, Urine pH 5.0, Ur Specific [place] 1.015, Urine Protein 30 H, Urine Glucose (UA) Normal, Urine Ketones Negative, Urine Occult Blood Negative, Urine Nitrite Negative, Urine Bilirubin Negative, Urine Urobilinogen 1 H, Ur Leukocyte Esterase 100 H, Urine RBC 0 SEEN, Urine WBC 0-5 SEEN, Ur Squamous Epith Cells 0-5 SEEN, Urine Bacteria 0 SEEN, Urine Mucus 0 SEEN 05/09/21 16:03: Lactic Acid 1.5 05/10/21 05:10: WBC 8.2, RBC 3.55 L, Hgb 11.3 L, Hct 36.1 L, MCV 101.7 H, MCH 31.8, MCHC 31.3 L, RDW Std Deviation 52.0 H, RDW Coeff of Fouzia 14.1, Plt Count 115 L, MPV 11.2, Immature Gran % (Auto) 0.500, Neut % (Auto) 95.6 H, Lymph % (Auto) 2.7 L, [place] % (Auto) 1.1, Eos % (Auto) 0.0, Baso % (Auto) 0.1, Absolute Neuts (auto) 7.9 H, Absolute Lymphs (auto) 0.22 L, Nucleated RBC % 0, Differential Comment SCANNED 05/10/21 05:10: Sodium 138, Potassium 4.8, Chloride 106, Carbon Dioxide 24.0, Anion Gap 8, BUN 17, Creatinine 0.60, Estim Creat Clear Calc 37.45, Est GFR (MDRD) Af Amer 124, Est GFR (MDRD) Non-Af 102, BUN/Creatinine Ratio 28.5 H, Glucose 127 H, Calcium 8.0 L, Total Bilirubin 1.10 H, AST 25, ALT 28, Alkaline Phosphatase 64, Total Protein 6.3 L, Albumin 2.1 L, Globulin 4.2, Albumin/Globulin Ratio 0.5 L Micro: Microbiology 05/09/21 19:30 Urine, Clean Catch Legionella Antigen - Final 05/09/21 19:30 Urine, Clean Catch Streptococcus pneumoniae Antigen (M - Final 05/09/21 13:00 Urine, Random Urine Culture - Final Presumptive E. coli Radiography Diagnostic Testing: Radiology Impression Chest CTA 05/09/21 16:01 IMPRESSION: 1. Positive for small pulmonary emboli bilaterally. 2. Bilateral subsegmental atelectasis or pneumonitis. Commonly reported imaging features of May 27 pneumonia are present. Other processes such as influenza pneumonia and organized pneumonia from drug toxicity or connective tissue disease can cause a similar imaging pattern. 3. Very large hiatal hernia containing the entire stomach and other loops of bowel. N.B. : The above Results were Read Back by Hong Almanza MD to Lucius Middleton DO, and understanding confirmed on 05/09/2021 17:07:56 (ET). Electronically Signed: Hong Almanza MD at 17:09 EDT Tel , Service support , ADDENDUM: 05/09/21 1365 IMPRESSION: 1. Positive for small pulmonary emboli bilaterally. 2. Bilateral subsegmental atelectasis or pneumonitis. Commonly reported imaging features of May 27 pneumonia are present. Other processes such as influenza pneumonia and organized pneumonia from drug toxicity or connective tissue disease can cause a similar imaging pattern. 3. Very large hiatal hernia containing the entire stomach and other loops of bowel. N.B. : The above Results were Read Back by Hong Almanza MD to Lucius Middleton DO, and understanding confirmed on 05/09/2021 17:07:56 (ET). Electronically Signed: Hong Almanza MD at 17:09 EDT Tel , Service support , Physical Exam Const alert Constitutional Narrative: On BiPAP. Resp normal respiratory effort and no retractions Resp Narrative: Coarse breath sounds bilaterally Cardio regular rate, regular rhythm, S1 normal heart sound and S2 normal heart sound GI normal to inspection, nondistended, normoactive bowel sounds, soft to palpation, non-tender and non-distended Extremity normal to inspection Assessment & Plan Assessment/Plan (1) Acute respiratory failure with hypoxia: (2) Pulmonary embolism: QUALIFIERS: Pulmonary embolism type: other Chronicity: acute Acute cor pulmonale presence: without acute cor pulmonale Qualified Code(s): I26.99 - Other pulmonary embolism without acute cor pulmonale (3) Pneumonia due to severe acute respiratory syndrome coronavirus 2 (SARS-CoV- 2): PLAN: 1. Acute hypoxic respiratory failure * secondary to acute COVID-19 pneumonia/acute bilateral PE * Placed on BiPAP concern for worsening deterioration. Told patient if she does get worse, since she has no intubation, then patient should be hospice. Patient is positive that she will do well. * Will give dose of IV furosemide 2. Acute COVID-19 * Onset according the patient was April 27, quarantine through the eighth * Patient is out of the window for remdesivir * Patient is vaccinated * Patient currently on Decadron * Consult infectious disease 3. Acute PE * likely secondary to coagulopathy from acute COVID-19 infection * Will continue on subcu Lovenox twice daily, consider transition to oral anticoagulants if patient continues to be stable 3. Debility related to the above * PT/OT to evaluate and treat, gentle IV fluids 4. Hypertension/hypothyroidism/hyperlipidemia/GERD/chronic pain syndrome, remained stable * Continue atenolol, levothyroxine, lovastatin, nifedipine, tramadol 5. Prognosis: guarded. Charges/Coding Visit Charges Inpatient E&M: 48560 Subs Hosp L2
[2021-05-10] MEDS: Furosemide 40 MG/4 ML Vial IV (14:54)
[2021-05-11] VITALS (14 sets, daily range): BP systolic 98–126; BP diastolic 52–72; PULSE 55–82; RESP 12–24; TEMP 36.6–36.9; O2SAT 80–100
[2021-05-11] MEDS: Enoxaparin 80 MG/0.8 ML Syringe SC ×2 (09:13→20:34)
[2021-05-11] MEDS: traMADol 50 MG Tablet PO ×2 (09:14→20:35)
[2021-05-11] MEDS: Atorvastatin Calcium 10 MG Tablet 5 MG PO (09:14)
[2021-05-11] MEDS: Atenolol 25 MG Tablet PO (09:14)
[2021-05-11] MEDS: Pantoprazole Sodium 20 MG Tablet PO (09:14)
[2021-05-11] MEDS: dexAMETHasone 4 MG Tablet 6 MG PO (09:17)
--- NOTE | 2021-05-11 13:50 | PN.HOSP_ITS ---
Subjective Subjective Feels better even though she was placed back on BiPAP. Objective Data Objective Data Vital Signs: Vital Signs Temp Pulse Resp BP Pulse Ox 36.7 C 61 18 111/56 L 80 05/11/21 09:00 05/11/21 11:59 05/11/21 09:00 05/11/21 09:00 05/11/21 10:54 Oxygen Flow Rate (L/min) 15 Oxygen Delivery Method Nasal Cannula Weight: 75.2 kg Body Mass Index (BMI) 28.2 Intake & Output: Intake and Output for Last 24 Hours 05/09/21 05/10/21 05/11/21 23:59 23:59 23:59 Intake Total 620 / 620 942.5 / 1062.5 180 / 180 Output Total 975 / 1525 900 / 900 Balance 620 / 620 -32.5 / -462.5 -720 / -720 Lab / Micro Data Result Diagrams: 05/10/21 05:10 05/10/21 05:10 Micro: Microbiology 05/09/21 11:34 Blood Culture (Wb) - Anticubital Left Blood Culture - Preliminary No growth in 48 hours. 05/09/21 11:42 Blood Culture (Wb) - Left Hand Blood Culture - Preliminary No growth in 48 hours. 05/09/21 19:30 Urine, Clean Catch Legionella Antigen - Final 05/09/21 19:30 Urine, Clean Catch Streptococcus pneumoniae Antigen (M - Final 05/09/21 13:00 Urine, Random Urine Culture - Final Presumptive E. coli Physical Exam Const alert Resp normal respiratory effort and no retractions Resp Narrative: coarse breath sounds bilaterally. Cardio regular rate, regular rhythm, S1 normal heart sound and S2 normal heart sound GI normal to inspection, nondistended, normoactive bowel sounds, soft to palpation, non-tender and non-distended Extremity Extremity Narrative: trace LE edema. Assessment & Plan Assessment/Plan (1) Acute respiratory failure with hypoxia: (2) Pulmonary embolism: QUALIFIERS: Pulmonary embolism type: other Chronicity: acute Acute cor pulmonale presence: without acute cor pulmonale Qualified Code(s): I26.99 - Other pulmonary embolism without acute cor pulmonale (3) Pneumonia due to severe acute respiratory syndrome coronavirus 2 (SARS-CoV-2): PLAN: 1. Acute hypoxic respiratory failure * secondary to acute COVID-19 pneumonia/acute bilateral PE * Placed on BiPAP concern for worsening deterioration. Told patient if she does get worse, since she has no intubation, then patient should be hospice. Patient is positive that she will do well. * Repeat IV furosemide 2. Acute COVID-19 * Onset according the patient was April 27, quarantine through the * Patient is out of the window for remdesivir * Patient is vaccinated * Patient currently on Decadron * Consult infectious disease 3. Acute PE * likely secondary to coagulopathy from acute COVID-19 infection * Will continue on subcu Lovenox twice daily, consider transition to oral anticoagulants if patient continues to be stable 3. Debility related to the above * PT/OT to evaluate and treat, gentle IV fluids 4. Hypertension/hypothyroidism/hyperlipidemia/GERD/chronic pain syndrome, remained stable * Continue atenolol, levothyroxine, lovastatin, nifedipine, tramadol 5. Prognosis: guarded. Patient gave me permission to speak with her daughter, Deandra Doshi, who is also hospitalized with COVID-19. Charges/Coding Visit Charges Inpatient E&M: 69638 Subs Hosp L2
[2021-05-11] MEDS: Furosemide 40 MG/4 ML Vial IV (15:10)
[2021-05-12] VITALS (14 sets, daily range): BP systolic 99–132; BP diastolic 48–77; PULSE 59–78; RESP 12–25; TEMP 36.4–36.6; O2SAT 88–99
[2021-05-12 08:17] LABS: ALB/GLOB Ratio 0.5 RATIO (0.9-2.4); AST(SGOT) 29 U/L (15-37); Alanine Aminotransfer ALT/SGPT 33 U/L (13-56); Albumin, Serum 2.2 g/dL (3.2-5.0); Alkaline Phosphatase 66 U/L (45-117); Anion Gap 8 (5-15); BUN 23 mg/dL (7-18); BUN/Creat Ratio 33.4 RATIO (10-20); Calcium,Total 8.3 mg/dL (8.5-10.1); Chloride 102 mmol/L (98-107); Creatinine, Serum 0.69 mg/dL (0.55-1.02); EST Glomerular Filtration Rate 87 mL/min (>60); Est Glom Filt Rate - Afr Amer 105 mL/min (>60); Estimated Creatinine Clearance 37.45 ml/min; Globulin 4.4 g/dL (2.2-4.2); Glucose 94 mg/dL (74-106); Protein, Total 6.6 g/dL (6.4-8.2); Sodium Level 136 mmol/L (136-145)
[2021-05-12] MEDS: Enoxaparin 80 MG/0.8 ML Syringe SC ×2 (09:55→21:38)
[2021-05-12] MEDS: dexAMETHasone 4 MG Tablet 6 MG PO (09:55)
[2021-05-12] MEDS: Atorvastatin Calcium 10 MG Tablet 5 MG PO (09:57)
[2021-05-12] MEDS: Pantoprazole Sodium 20 MG Tablet PO (09:58)
[2021-05-12] MEDS: Levothyroxine 88 MCG Tablet PO (09:58)
--- NOTE | 2021-05-12 13:24 | CON.PCM.ID_ITS ---
Assessment & Plan Assessment/Plan (1) Acute respiratory failure with hypoxia: (2) Pulmonary embolism: QUALIFIERS: Pulmonary embolism type: other Chronicity: acute Acute cor pulmonale presence: without acute cor pulmonale Qualified Code(s): I26.99 - Other pulmonary embolism without acute cor pulmonale (3) Pneumonia due to severe acute respiratory syndrome coronavirus 2 (SARS-CoV-2): PLAN: Sx started around 04/20. Ok to come out of isolation at this point. CT showed PEs. On lovenox 80mg bid. On dex, will add baricitinib, reviewed EUA and risks/benefits with her. Has been vaccinated. Will follow, thank you HPI Consult Data Date of Consult: 05/12/21 HPI Narrative HPI Narrative: STEFANO WASHINGTON, is a 81 F who presented with covid sx since 04/20. Dx in ED 04/27, c/o one week fatigue, diarrhea, cough at that point. Came back to ED 05/09 with worsening dyspnea, cough, malaise, poor po intake. Admitted on dex, therapeutic lovenox after CT showed PEs. Now on airvo. Has been vaccinated. Feeling a little better this AM. Full ROS performed and neg except as noted above. [facility] Medical History Former smoker GERD (gastroesophageal reflux disease) High cholesterol Hypertension Hypothyroidism Home Medications atenolol 25 mg PO DAILY 05/09/21 [History Last Taken 05/09/21] calcium carbonate-vitamin D3 [Calcium 500 + D] 1 tab PO DAILY 05/09/21 [History Last Taken 05/08/21] glucosamine HCl-vitamin D3 1 tab PO DAILY 05/09/21 [History Last Taken 05/08/21] levothyroxine 88 mcg PO MOTUWETHFRSA 05/09/21 [History Last Taken Unknown] lovastatin 20 mg PO DAILY 05/09/21 [History Last Taken 05/09/21] multivitamin 1 tab PO DAILY 05/09/21 [History Last Taken 05/09/21] nifedipine 30 mg PO DAILY 05/09/21 [History Last Taken 05/09/21] omeprazole 20 mg PO DAILY 05/09/21 [History Last Taken 05/09/21] tramadol 50 mg PO BID 05/09/21 [History Last Taken 05/09/21] Allergy/AdvReac Type Severity Reaction Status Date / Time No Known Allergies Allergy Verified 05/09/21 10:48 Family History adopted Surgical History no surgical history Social History (Updated 05/09/21 @ 18:[address] Esthela Anderson MD) household members: none Smoking Status: Former smoker alcohol intake: never substance use type: does not use Physical Exam Const alert and oriented x3 General Appearance: cooperative Exam Limitations: no limitations HEENT normocephalic and head/scalp atraumatic Eyes PERRL and EOMs intact bilaterally Neck supple and No nodes Resp clear to auscultation bilaterally Auscultation: diminished lung sounds Cardio regular rate and regular rhythm GI normal to inspection, nondistended, normoactive bowel sounds Extremity no clubbing, cyanosis or edema Skin no rashes or lesions noted Neuro CN's II-XII intact bilaterally Lab / Micro Data Result Diagrams: 05/10/21 05:10 05/12/21 06:55 Labs: Laboratory Results - last 24 hr 05/12/21 06:55: Sodium 136, Potassium 4.0, Chloride 102, Carbon Dioxide 26.0, Anion Gap 8, BUN 23 H, Creatinine 0.69, Estim Creat Clear Calc 37.45, Est GFR (MDRD) Af Amer 105, Est GFR (MDRD) Non-Af 87, BUN/Creatinine Ratio 33.4 H, Glucose 94, Calcium 8.3 L, Total Bilirubin 0.90, AST 29, ALT 33, Alkaline Phosphatase 66, Total Protein 6.6, Albumin 2.2 L, Globulin 4.4 H, Albumin/Sofia bulin Ratio 0.5 L Micro: Microbiology 05/09/21 11:34 Blood Culture (Wb) - Anticubital Left Blood Culture - Preliminary No growth in 48 hours. 05/09/21 11:42 Blood Culture (Wb) - Left Hand Blood Culture - Preliminary No growth in 48 hours.
[2021-05-12] MEDS: traMADol 50 MG Tablet PO (15:17)
--- NOTE | 2021-05-12 15:23 | PN.HOSP_ITS ---
Subjective Subjective States she is breathing well but still on air Vo. Objective Data Objective Data Vital Signs: Vital Signs Temp Pulse Resp BP Pulse Ox 36.6 C 78 18 131/77 H 94 05/12/21 15:14 05/12/21 15:14 05/12/21 15:14 05/12/21 15:14 05/12/21 15:14 Oxygen Flow Rate (L/min) 60 Oxygen Delivery Method Airvo Weight: 73.7 kg Body Mass Index (BMI) 28.2 Intake & Output: Intake and Output for Last 24 Hours 05/10/21 05/11/21 05/12/21 23:59 23:59 23:59 Intake Total 942.5 / 1062.5 300 / 300 400 / 400 Output Total 975 / 1525 1575 / 1575 300 / 300 Balance -32.5 / -462.5 -1275 / -1275 100 / 100 Lab / Micro Data Result Diagrams: 05/10/21 05:10 05/12/21 06:55 Labs: Laboratory Results - last 24 hr 05/12/21 06:55: Sodium 136, Potassium 4.0, Chloride 102, Carbon Dioxide 26.0, Anion Gap 8, BUN 23 H, Creatinine 0.69, Estim Creat Clear Calc 37.45, Est GFR (MDRD) Af Amer 105, Est GFR (MDRD) Non-Af 87, BUN/Creatinine Ratio 33.4 H, Glucose 94, Calcium 8.3 L, Total Bilirubin 0.90, AST 29, ALT 33, Alkaline Phosphatase 66, Total Protein 6.6, Albumin 2.2 L, Globulin 4.4 H, Albumin/Glob ulin Ratio 0.5 L Micro: Microbiology 05/09/21 11:34 Blood Culture (Wb) - Anticubital Left Blood Culture - Preliminary No growth in 48 hours. 05/09/21 11:42 Blood Culture (Wb) - Left Hand Blood Culture - Preliminary No growth in 48 hours. 05/09/21 19:30 Urine, Clean Catch Legionella Antigen - Final 05/09/21 19:30 Urine, Clean Catch Streptococcus pneumoniae Antigen (M - Final 05/09/21 13:00 Urine, Random Urine Culture - Final Presumptive E. coli Physical Exam Const alert Constitutional Narrative: On air Vo. Pleasant. No conversational dyspnea. No respiratory distress. Cardio regular rate, regular rhythm, S1 normal heart sound and S2 normal heart sound GI normal to inspection, nondistended, normoactive bowel sounds, soft to palpation, non-tender and non-distended Extremity normal to inspection Extremity Narrative: edema in LE Skin no rashes or lesions noted Assessment & Plan Assessment/Plan (1) Acute respiratory failure with hypoxia: (2) Pulmonary embolism: QUALIFIERS: Pulmonary embolism type: other Chronicity: acute Acute cor pulmonale presence: without acute cor pulmonale Qualified Code(s): I26.99 - Other pulmonary embolism without acute cor pulmonale (3) Pneumonia due to severe acute respiratory syndrome coronavirus 2 (SARS-CoV-2): PLAN: 1. Acute hypoxic respiratory failure * secondary to acute COVID-19 pneumonia/acute bilateral PE * Placed on BiPAP concern for worsening deterioration. Told patient if she does get worse, since she has no intubation, then patient should be hospice. Patient is positive that she will do well. * Repeat IV furosemide 2. Acute COVID-19 * Onset according the patient was April 27, quarantine through the eighth * Patient is out of the window for remdesivir * Patient is vaccinated * Patient currently on Decadron * Consult infectious disease * Baricitinib 3. Acute PE * likely secondary to coagulopathy from acute COVID-19 infection * Will continue on subcu Lovenox twice daily, consider transition to oral anticoagulants if patient continues to be stable 3. Debility related to the above * PT/OT to evaluate and treat, gentle IV fluids 4. Hypertension/hypothyroidism/hyperlipidemia/GERD/chronic pain syndrome, remained stable * Continue atenolol, levothyroxine, lovastatin, nifedipine, tramadol 5. Prognosis: guarded. Patient gave me permission to speak with her daughter, Deandra Doshi, who is also hospitalized with COVID-19. Updated her daughter. Charges/Coding Visit Charges Inpatient E&M: 60113 Subs Hosp L2
[2021-05-12] MEDS: 0.9% Saline Lock 10 ML Syringe IV ×2 (15:35→21:38)
[2021-05-12] MEDS: Furosemide 40 MG/4 ML Vial IV (15:35)
[2021-05-12] MEDS: Acetaminophen 325 MG Tablet 650 MG PO (21:38)
[2021-05-12] MEDS: Menthol/Lanolin/Calamine/Znox 113 GM Tube 1 APPLIC TOPICAL (21:38)
[2021-05-13] VITALS (14 sets, daily range): BP systolic 102–126; BP diastolic 55–79; PULSE 52–87; RESP 18–22; TEMP 36.6–37.2; O2SAT 88–99
[2021-05-13] MEDS: Menthol/Lanolin/Calamine/Znox 113 GM Tube 1 APPLIC TOPICAL ×3 (05:08→22:13)
[2021-05-13 09:14] LABS: Absolute Lymphocyte Count 0.73 X10^3/uL (0.83-4.51); Absolute Neutrophil Count 4.2 X10^3/uL (2.0-7.7); Eosinophil# 0.01 X10^3/uL; Eosinophils% 0.2 % (0-5); Hematocrit 35.9 % (37-47); Hemoglobin 11.4 g/dL (12.0-15.0); Lymphocyte # 0.73 X10^3/ul (0.83-4.51); Mean Corp Hgb Conc 31.8 g/dL (32-36); Mean Corpuscular Hgb 31.1 pg (27.0-32.0); Mean Corpuscular Volume 97.8 fL (81-99); Mean Platelet Vol. 10.4 fl (6.2-12.0); Monocyte# 0.21 X10^3/uL; NRBC Flagged by Analyzer 0 % (0-5); Neutrophil # 4.23 X10^3/uL (2.7-7.7); Platelet Count 179 K/mm3 (150-450); RBC Distribution Width CV 13.5 % (11.6-14.6); RBC Distribution Width SD 48.5 fl (35.1-43.9); Red Blood Count 3.67 M/mm3 (4.2-5.4); White Blood Count 5.2 K/mm3 (4.4-11.0)
[2021-05-13 09:28] LABS: ALB/GLOB Ratio 0.5 RATIO (0.9-2.4); AST(SGOT) 35 U/L (15-37); Alanine Aminotransfer ALT/SGPT 50 U/L (13-56); Albumin, Serum 2.3 g/dL (3.2-5.0); Alkaline Phosphatase 66 U/L (45-117); Anion Gap 5 (5-15); BUN 27 mg/dL (7-18); BUN/Creat Ratio 39.6 RATIO (10-20); Calcium,Total 8.5 mg/dL (8.5-10.1); Chloride 100 mmol/L (98-107); Creatinine, Serum 0.68 mg/dL (0.55-1.02); EST Glomerular Filtration Rate 88 mL/min (>60); Est Glom Filt Rate - Afr Amer 106 mL/min (>60); Estimated Creatinine Clearance 37.45 ml/min; Globulin 4.5 g/dL (2.2-4.2); Glucose 91 mg/dL (74-106); Protein, Total 6.8 g/dL (6.4-8.2); Sodium Level 138 mmol/L (136-145)
[2021-05-13] MEDS: Levothyroxine 88 MCG Tablet PO (09:47)
[2021-05-13] MEDS: Pantoprazole Sodium 20 MG Tablet PO (09:47)
[2021-05-13] MEDS: Atenolol 25 MG Tablet PO (09:47)
[2021-05-13] MEDS: Enoxaparin 80 MG/0.8 ML Syringe SC ×2 (09:47→22:14)
[2021-05-13] MEDS: dexAMETHasone 4 MG Tablet 6 MG PO (09:48)
[2021-05-13] MEDS: Atorvastatin Calcium 10 MG Tablet 5 MG PO (09:48)
[2021-05-13] MEDS: NIFEdipine 30 MG Tablet PO (09:48)
[2021-05-13] MEDS: traMADol 50 MG Tablet PO ×2 (09:52→22:13)
--- NOTE | 2021-05-13 15:02 | CASEMGMT ---
Per Deisy EPPS, she spoke with pt's granddaughter today and they are interested in TCU for pt at discharge. Pt will be day 20 from positive COVID test on 05/16/21, although per H&P, pt's sx's started quite a bit before she was tested. Eduardo SW aware, voices understanding. Pt is still on airvo at this time and not medically ready for discharge. CM to follow. Armando EPPS CM
--- NOTE | 2021-05-13 15:17 | PN.HOSP_ITS ---
Subjective Subjective Breathing better. Tolerating Airvo. Objective Data Objective Data Vital Signs: Vital Signs Temp Pulse Resp BP Pulse Ox 37.2 C 56 L 18 103/58 L 94 05/13/21 14:00 05/13/21 14:00 05/13/21 14:00 05/13/21 14:00 05/13/21 14:35 Oxygen Flow Rate (L/min) 50 Oxygen Delivery Method Airvo Weight: 72.3 kg Body Mass Index (BMI) 28.2 Intake & Output: Intake and Output for Last 24 Hours 05/11/21 05/12/21 05/13/21 23:59 23:59 23:59 Intake Total 300 / 300 800 / 800 Output Total 1575 / 1575 500 / 700 750 / 750 Balance -1275 / -1275 300 / 100 -750 / -750 Lab / Micro Data Result Diagrams: 05/13/21 09:04 05/13/21 09:04 Labs: Laboratory Results - last 24 hr 05/13/21 09:04: WBC 5.2, RBC 3.67 L, Hgb 11.4 L, Hct 35.9 L, MCV 97.8, MCH 31.1, MCHC 31.8 L, RDW Std Deviation 48.5 H, RDW Coeff of Fouzia 13.5, Plt Count 179, MPV 10.4, Immature Gran % (Auto) 0.800, Neut % (Auto) 81.0 H, Lymph % (Auto) 14.0 L, Blair % (Auto) 4.0, Eos % (Auto) 0.2, Baso % (Auto) 0.0, Absolute Neuts (auto) 4.2, Absolute Lymphs (auto) 0.73 L, Nucleated RBC % 0 05/13/21 09:04: Sodium 138, Potassium 4.0, Chloride 100, Carbon Dioxide 33.0 H, Anion Gap 5, BUN 27 H, Creatinine 0.68, Estim Creat Clear Calc 37.45, Est GFR (MDRD) Af Amer 106, Est GFR (MDRD) Non-Af 88, BUN/Creatinine Ratio 39.6 H, Glucose 91, Calcium 8.5, Total Bilirubin 0.70, AST 35, ALT 50, Alkaline Phosphatase 66, Total Protein 6.8, Albumin 2.3 L, Globulin 4.5 H, Albumin/Globulin Ratio 0.5 L Micro: Microbiology 05/09/21 11:34 Blood Culture (Wb) - Anticubital Left Blood Culture - Preliminary No growth in 48 hours. 05/09/21 11:42 Blood Culture (Wb) - Left Hand Blood Culture - Preliminary No growth in 48 hours. 05/09/21 19:30 Urine, Clean Catch Legionella Antigen - Final 05/09/21 19:30 Urine, Clean Catch Streptococcus pneumoniae Antigen (M - Final 05/09/21 13:00 Urine, Random Urine Culture - Final Presumptive E. coli Physical Exam Const alert Resp normal respiratory effort, no retractions, no use of accessory muscles and clear to auscultation bilaterally Cardio regular rate, regular rhythm, S1 normal heart sound and S2 normal heart sound GI normal to inspection, nondistended, normoactive bowel sounds and soft to palpation Assessment & Plan Assessment/Plan (1) Acute respiratory failure with hypoxia: (2) Pulmonary embolism: QUALIFIERS: Pulmonary embolism type: other Chronicity: acute Acute cor pulmonale presence: without acute cor pulmonale Qualified Code(s): I26.99 - Other pulmonary embolism without acute cor pulmonale (3) Pneumonia due to severe acute respiratory syndrome coronavirus 2 (LEROY S-CoV-2): PLAN: 1. Acute hypoxic respiratory failure * secondary to acute COVID-19 pneumonia/acute bilateral PE * Placed on BiPAP concern for worsening deterioration. Told patient if she does get worse, since she has no intubation, then patient should be hospice. Pat ient is positive that she will do well. * Continue furosemide 2. Acute COVID-19 * Onset according the patient was April 27, quarantine through the * Patient is out of the window for remdesivir * Patient is vaccinated * Dexamethasone through 05/19 * Consult infectious disease * Baricitinib through the or discharge 3. Acute PE * likely secondary to coagulopathy from acute COVID-19 infection * Will continue on subcu Lovenox twice daily, consider transition to oral anticoagulants if patient continues to be stable 3. Debility related to the above * PT/OT to evaluate and treat, gentle IV fluids 4. Hypertension/hypothyroidism/hyperlipidemia/GERD/chronic pain syndrome, remained stable * Continue atenolol, levothyroxine, lovastatin, nifedipine, tramadol 5. Prognosis: guarded. Patient gave me permission to speak with her daughter, Deandra Doshi, who is also hospitalized with COVID-19. Updated her daughter. Charges/Coding Visit Charges Inpatient E&M: 67274 Subs Hosp L2
[2021-05-13] MEDS: Furosemide 40 MG Tablet PO (17:11)
[2021-05-13] MEDS: Mag Hydrox/Al Hydrox/Simeth 30 ML UDC PO (20:04)
--- NOTE | 2021-05-13 20:50 | NURSING ---
Pt report called to MICH Gonzalez on [facility].
[2021-05-14] VITALS (16 sets, daily range): BP systolic 90–106; BP diastolic 44–87; PULSE 60–87; RESP 18–26; TEMP 36.4–37.2; O2SAT 87–98
[2021-05-14] MEDS: Menthol/Lanolin/Calamine/Znox 113 GM Tube 1 APPLIC TOPICAL ×2 (03:42→21:32)
[2021-05-14 07:15] LABS: ALB/GLOB Ratio 0.5 RATIO (0.9-2.4); AST(SGOT) 45 U/L (15-37); Alanine Aminotransfer ALT/SGPT 63 U/L (13-56); Albumin, Serum 2.1 g/dL (3.2-5.0); Alkaline Phosphatase 60 U/L (45-117); Anion Gap 5 (5-15); BUN 26 mg/dL (7-18); BUN/Creat Ratio 38.6 RATIO (10-20); Calcium,Total 8.3 mg/dL (8.5-10.1); Chloride 102 mmol/L (98-107); Creatinine, Serum 0.67 mg/dL (0.55-1.02); EST Glomerular Filtration Rate 89 mL/min (>60); Est Glom Filt Rate - Afr Amer 108 mL/min (>60); Estimated Creatinine Clearance 37.45 ml/min; Globulin 4.1 g/dL (2.2-4.2); Glucose 93 mg/dL (74-106); Potassium 4.3 mmol/L (3.5-5.1); Protein, Total 6.2 g/dL (6.4-8.2); Sodium Level 137 mmol/L (136-145)
--- NOTE | 2021-05-14 07:55 | CPS ---
O.T. working w/patient on ADL's, pt desatting so R.T. increased Airvo to 40l and 87% to get Sat to 92%. i plan to decrease% when pt recovers.
[2021-05-14] MEDS: Levothyroxine 88 MCG Tablet PO (09:00)
[2021-05-14] MEDS: Atorvastatin Calcium 10 MG Tablet 5 MG PO (09:00)
[2021-05-14] MEDS: Pantoprazole Sodium 20 MG Tablet PO (09:01)
[2021-05-14] MEDS: Enoxaparin 80 MG/0.8 ML Syringe SC ×2 (09:01→21:33)
[2021-05-14] MEDS: dexAMETHasone 4 MG Tablet 6 MG PO (09:01)
--- NOTE | 2021-05-14 09:52 | CASEMGMT ---
Social Work Note SW placed a call to Caitlin with TCU regarding referral. Pt's positive test was on 04/27/2021. Pt's day 20 of post positive COVID test will be 05/16/2021. Pt can admit to TCU on 05/17/2021 as this will be day 21 of post positive test. SW in to speak with pt. SW introduced self and role at [facility]. Pt is alert and orientated. SW spoke with pt about TCU and how pt's granddaughter requested TCU if SNF is needed. Pt agreeable to TCU. Plan: TCU 05/17/2021 Celina Kaiser LICENSING COORDINATOR, FOUNTAIN ATTENDANT
--- NOTE | 2021-05-14 09:57 | CASEMGMT ---
Social Work Note Per sighter questions, pt has completed HCPOA and LW and provided copies to [facility]. SW reviewed chart, no copies found. SW in to speak with pt. Pt states she has completed HCPOA and LW states her daughter has taken care of all that. SW informed pt that [facility] doesn't have copies on file. Pt states she will speak to her daughter regarding this. Celina Kaiser PERFUME AND TOILET WATER MAKER, PRINTING PRESS OPERATOR
--- NOTE | 2021-05-14 15:23 | PN.HOSP_ITS ---
Objective Data Objective Data Vital Signs: Vital Signs Temp Pulse Resp BP Pulse Ox 98 F 62 20 H 100/56 L 98 05/14/21 14:17 05/14/21 14:17 05/14/21 14:17 05/14/21 14:17 05/14/21 14:17 Oxygen Flow Rate (L/min) 50 Oxygen Delivery Method Airvo Weight: 158 lb 11.725 oz Body Mass Index (BMI) 28.2 Intake & Output: Intake and Output for Last 24 Hours 05/12/21 05/13/21 05/14/21 23:59 23:59 23:59 Intake Total 800 / 800 600 / 600 Output Total 500 / 700 1000 / 1000 Balance 300 / 100 -1000 / -900 600 / 600 Medical Nutrition Assessment Dietitian: Malnutrition Criteria Met Start: 05/13/21 15:45 Freq: Status: Active Protocol: Document 05/13/21 15:46 RMA (Rec: 05/13/21 15:46 RMA [id number]) Nutrition Malnutrition Evidence of Malnutrition Exists Yes Malnutrition (severe): Acute Illness/Injury Evidenced By Suboptimal Energy Intake ( Severe),Weight Loss (Severe) Intake Problem Inadequate Oral Intake Etiology related to increased oxygen needs/decreased appetite x past 2-3 weeks Signs/Symptoms As evidenced by ~6-7% wt loss and decreased oral intake meeting less than 50% estimated nutrition needs x past 1-2 weeks. Status Active Problem Clinical Problem Acute Disease or Injury Related Malnutrition Etiology Severe pro/camryn malnutrition in the context of acute illness related to decreased appetite and unintended wt loss Signs/Symptoms as evidenced by 6-7% wt loss x past 1-2 weeks and PO meeting less than 50% estimated nutrition needs Status Active Problem Recommendation Dietitian Recommendations/Changes Continue liberalized regular diet and ensure compact TID w/ meals. Will add ensure pudding BID w/ lunch and dinner. Lab / Micro Data Result Diagrams: 05/13/21 09:04 05/14/21 06:20 Labs: Laboratory Results - last 24 hr 05/14/21 06:20: Sodium 137, Potassium 4.3, Chloride 102, Carbon Dioxide 30.0, Anion Gap 5, BUN 26 H, Creatinine 0.67, Estim Creat Clear Calc 37.45, Est GFR (MDRD) Af Amer 108, Est GFR (MDRD) Non-Af 89, BUN/Creatinine Ratio 38.6 H, Glucose 93, Calcium 8.3 L, Total Bilirubin 0.70, AST 45 H, ALT 63 H, Alkaline Phosphatase 60, Total Protein 6.2 L, Albumin 2.1 L, Globulin 4.1, Albumin/Globulin Ratio 0.5 L Micro: Microbiology 05/09/21 11:42 Blood Culture (Wb) - Left Hand Blood Culture - Final No growth in 5 days. 05/09/21 11:34 Blood Culture (Wb) - Anticubital Left Blood Culture - Final No growth in 5 days. 05/09/21 19:30 Urine, Clean Catch Legionella Antigen - Final 05/09/21 19:30 Urine, Clean Catch Streptococcus pneumoniae Antigen (M - Final 05/09/21 13:00 Urine, Random Urine Culture - Final Presumptive E. coli Physical Exam Narrative General: Alert, Oriented x3, Cooperative HEENT: Atraumatic, PERRLA, EOMI, Normocephalic Oral: No Gingival or Mucosal Lesions/ Ulcerations Neck: Supple, No JVD, Negative Carotid Bruits Lungs: Air entry diminished in bilateral lung bases. No crepitation/rhonchi. Patient is still on air Vo 55% to 70% FiO2. Cardiovascular: Regular rate, Regular Rhythm, Normal S1, Normal S2, No murmurs Abdomen: Bowel Sounds Present, Soft, Non Tender, Non-Distended : No renal angle tenderness. No suprapubic tenderness. Extremities: No edema, Capillary Refill Less than 3 Seconds Skin: No rashes, No breakdown Musculoskeletal: No Tenderness to Palpation of Joints or Extremities Neurological: Cranial nerves II-XII grossly intact, DTR 2+/4 and Symmetrical, Neuro grossly intact Psych/Mental Status: Normal Affect, Appropriate. Assessment & Plan Assessment/Plan (1) Acute respiratory failure with hypoxia: (2) Pulmonary embolism: QUALIFIERS: Pulmonary embolism type: other Chronicity: acute Acute cor pulmonale presence: without acute cor pulmonale Qualified Code(s): I26.99 - Other pulmonary embolism without acute cor pulmonale (3) Pneumonia due to severe acute respiratory syndrome coronavirus 2 (SARS-CoV-2): PLAN: 1. Acute hypoxic respiratory failure secondary to COVID-19 pneumonia and bilateral PE: Patient alternating with air Vo and BiPAP. As per previous hospitalist, if she does get worse, since she has no intubation, then patient should be hospice. Patient is positive that she will do well. On furosemide as needed. 2. Acute COVID-19: Onset on May 07, quarantine through 05/16. ID is consulted. On baricitinib for total of 14 days 3. Acute PE * likely secondary to coagulopathy from acute COVID-19 infection. L continue on subcu Lovenox twice daily, consider transition to oral anticoagulants if patient continues to be stable 3. Debility related to the above * PT/OT to evaluate and treat, gentle IV fluids 4. Hypertension/hypothyroidism/hyperlipidemia/GERD/chronic pain syndrome, rem ained stable * Continue atenolol, levothyroxine, lovastatin, nifedipine, tramadol 5. Prognosis: guarded. Charges/Coding Visit Charges Inpatient E&M: 37049 Subs Hosp L2
--- NOTE | 2021-05-14 20:44 | CPS ---
decreased to 66%
[2021-05-15] VITALS (12 sets, daily range): BP systolic 109–140; BP diastolic 50–64; PULSE 61–80; RESP 16–24; TEMP 36.4–37.2; O2SAT 90–97
--- NOTE | 2021-05-15 06:11 | NURSING ---
Gave Granddaughter an update on Pts status.
[2021-05-15] MEDS: Menthol/Lanolin/Calamine/Znox 113 GM Tube 1 APPLIC TOPICAL ×3 (06:42→22:54)
[2021-05-15 08:01] LABS: ALB/GLOB Ratio 0.5 RATIO (0.9-2.4); AST(SGOT) 57 U/L (15-37); Alanine Aminotransfer ALT/SGPT 85 U/L (13-56); Albumin, Serum 2.4 g/dL (3.2-5.0); Alkaline Phosphatase 60 U/L (45-117); Anion Gap 5 (5-15); BUN 25 mg/dL (7-18); Calcium,Total 8.8 mg/dL (8.5-10.1); Chloride 102 mmol/L (98-107); Creatinine, Serum 0.66 mg/dL (0.55-1.02); EST Glomerular Filtration Rate 91 mL/min (>60); Est Glom Filt Rate - Afr Amer 111 mL/min (>60); Estimated Creatinine Clearance 37.45 ml/min; Globulin 4.4 g/dL (2.2-4.2); Glucose 79 mg/dL (74-106); Potassium 4.4 mmol/L (3.5-5.1); Protein, Total 6.8 g/dL (6.4-8.2); Sodium Level 138 mmol/L (136-145)
[2021-05-15] MEDS: Pantoprazole Sodium 20 MG Tablet PO (09:33)
[2021-05-15] MEDS: Atorvastatin Calcium 10 MG Tablet 5 MG PO (09:33)
[2021-05-15] MEDS: Enoxaparin 80 MG/0.8 ML Syringe SC ×2 (09:33→22:53)
[2021-05-15] MEDS: NIFEdipine 30 MG Tablet PO (09:35)
[2021-05-15] MEDS: dexAMETHasone 4 MG Tablet 6 MG PO (09:36)
[2021-05-15] MEDS: Levothyroxine 88 MCG Tablet PO (09:36)
[2021-05-15] MEDS: Atenolol 25 MG Tablet PO (09:39)
[2021-05-15] MEDS: Acetaminophen 325 MG Tablet 650 MG PO (09:40)
--- NOTE | 2021-05-15 15:23 | PN.HOSP_ITS ---
Subjective Subjective Patient denies any improvement in shortness of breath. On air Vo. Patient is doing incentive spirometry and Pep. Objective Data Objective Data Vital Signs: Vital Signs Temp Pulse Resp BP Pulse Ox 98.9 F 77 18 109/59 L 94 05/15/21 15:20 05/15/21 15:20 05/15/21 15:20 05/15/21 15:20 05/15/21 15:20 Oxygen Flow Rate (L/min) 40 Oxygen Delivery Method Airvo Weight: 158 lb 11.725 oz Body Mass Index (BMI) 28.2 Intake & Output: Intake and Output for Last 24 Hours 05/13/21 05/14/21 05/15/21 23:59 23:59 23:59 Intake Total 600 / 700 650 / 650 Output Total 1000 / 1000 350 / 350 Balance -1000 / -900 600 / 700 300 / 300 Medical Nutrition Assessment Dietitian: Malnutrition Criteria Met Start: 05/13/21 1 5:45 Freq: Status: Active Protocol: Document 05/13/21 15:46 RMA (Rec: 05/13/21 15:46 RMA [id number]) Nutrition Malnutrition Evidence of Malnutrition Exists Yes Malnutrition (severe): Acute Illness/Injury Evidenced By Suboptimal Energy Intake ( Severe),Weight Loss (Severe) Intake Problem Inadequate Oral Intake Etiology related to increased oxygen needs/decreased appetite x past 2-3 weeks Signs/Symptoms As evidenced by ~6-7% wt loss and decreased oral intake meeting less than 50% estimated nutrition needs x past 1-2 weeks. Status Active Problem Clinical Problem Acute Disease or Injury Related Malnutrition Etiology Severe pro/camryn malnutrition in the context of acute illness related to decreased appetite and unintended wt loss Signs/Symptoms as evidenced by 6-7% wt loss x past 1-2 weeks and PO meeting less than 50% estimated nutrition needs Status Active Problem Recommendation Dietitian Recommendations/Changes Continue liberalized regular diet and ensure compact TID w/ meals. Will add ensure pudding BID w/ lunch and dinner. Lab / Micro Data Result Diagrams: 05/13/21 09:04 05/15/21 06:10 Labs: Laboratory Results - last 24 hr 05/15/21 06:10: Sodium 138, Potassium 4.4, Chloride 102, Carbon Dioxide 31.0, Anion Gap 5, BUN 25 H, Creatinine 0.66, Estim Creat Clear Calc 37.45, Est GFR (MDRD) Af Amer 111, Est GFR (MDRD) Non-Af 91, BUN/Creatinine Ratio 38.0 H, Glucose 79, Calcium 8.8, Total Bilirubin 0.70, AST 57 H, ALT 85 H, Alkaline Phosphatase 60, Total Protein 6.8, Albumin 2.4 L, Globulin 4.4 H, Albumin/Globulin Ratio 0.5 L Micro: Microbiology 05/09/21 11:42 Blood Culture (Wb) - Left Hand Blood Culture - Final No growth in 5 days. 05/09/21 11:34 Blood Culture (Wb) - Anticubital Left Blood Culture - Final No growth in 5 days. 05/09/21 19:30 Urine, Clean Catch Legionella Antigen - Final 05/09/21 19:30 Urine, Clean Catch Streptococcus pneumoniae Antigen (M - Final 05/09/21 13:00 Urine, Random Urine Culture - Final Presumptive E. coli Physical Exam Narrative General: Alert, Oriented x3, Cooperative HEENT: Atraumatic, PERRLA, EOMI, Normocephalic Oral: No Gingival or Mucosal Lesions/ Ulcerations Neck: Supple, No JVD, Negative Carotid Bruits Lungs: Air entry diminished in bilateral lung bases. No crepitation/rhonchi. Patient is still on air Vo, 50% FiO2 Cardiovascular: Regular rate, Regular Rhythm, Normal S1, Normal S2, No murmurs Abdomen: Bowel Sounds Present, Soft, Non Tender, Non-Distended : No renal angle tenderness. No suprapubic tenderness. Extremities: No edema, Capillary Refill Less than 3 Seconds Skin: No rashes, No breakdown Musculoskeletal: No Tenderness to Palpation of Joints or Extremities Neurological: Cranial nerves II-XII grossly intact, DTR 2+/4 and Symmetrical, Neuro grossly intact Psych/Mental Status: Normal Affect, Appropriate. Assessment & Plan Assessment/Plan (1) Acute respiratory failure with hypoxia: (2) Pulmonary embolism: QUALIFIERS: Pulmonary embolism type: other Chronicity: acute Acute cor pulmonale presence: without acute cor pulmonale Qualified Code(s): I26.99 - Other pulmonary embolism without acute cor pulmonale (3) Pneumonia due to severe acute respiratory syndrome coronavirus 2 (SARS-CoV-2): PLAN: 1. Acute hypoxic respiratory failure secondary to COVID-19 pneumonia and bilateral PE: Patient alternating with air Vo and BiPAP. As per previous hospitalist, if she does get worse, since she has no intubation, then patient should be hospice. Patient is positive that she will do well. On furosemide as needed. 05/15: Patient blood pressure on lower side yesterday 99/87, 100/56. BUN elevated 25. Scheduled Lasix is discontinued. Lasix as needed for leg swelling or pulmonary edema. 2. Acute COVID-19: Onset on May 07, quarantine through 05/16. ID is consulted. On baricitinib for total of 14 days 3. Acute PE * likely secondary to coagulopathy from acute COVID-19 infection. L continue on subcu Lovenox twice daily, consider transition to oral anticoagulants if patient continues to be stable 3. Debility related to the above * PT/OT to evaluate and treat, gentle IV fluids 4. Hypertension/hypothyroidism/hyperlipidemia/GERD/chronic pain syndrome, remained stable * Continue atenolol, levothyroxine, lovastatin, nifedipine, tramadol 5. Prognosis: guarded. Charges/Coding Visit Charges Inpatient E&M: 37372 Subs Hosp L2
[2021-05-16] VITALS (8 sets, daily range): BP systolic 103–114; BP diastolic 50–79; PULSE 54–92; RESP 16–20; TEMP 36.7–36.9; O2SAT 92–98
[2021-05-16] MEDS: Acetaminophen 325 MG Tablet 650 MG PO ×2 (02:10→21:57)
[2021-05-16] MEDS: 0.9% Saline Lock 10 ML Syringe IV (06:13)
[2021-05-16] MEDS: Menthol/Lanolin/Calamine/Znox 113 GM Tube 1 APPLIC TOPICAL ×3 (06:14→21:58)
[2021-05-16 06:55] LABS: ALB/GLOB Ratio 0.6 RATIO (0.9-2.4); AST(SGOT) 49 U/L (15-37); Alanine Aminotransfer ALT/SGPT 106 U/L (13-56); Albumin, Serum 2.2 g/dL (3.2-5.0); Alkaline Phosphatase 58 U/L (45-117); Anion Gap 6 (5-15); BUN 22 mg/dL (7-18); BUN/Creat Ratio 33.5 RATIO (10-20); Calcium,Total 8.2 mg/dL (8.5-10.1); Chloride 102 mmol/L (98-107); Creatinine, Serum 0.66 mg/dL (0.55-1.02); EST Glomerular Filtration Rate 92 mL/min (>60); Est Glom Filt Rate - Afr Amer 111 mL/min (>60); Estimated Creatinine Clearance 37.45 ml/min; Globulin 3.9 g/dL (2.2-4.2); Glucose 78 mg/dL (74-106); Protein, Total 6.1 g/dL (6.4-8.2); Sodium Level 137 mmol/L (136-145)
[2021-05-16] MEDS: dexAMETHasone 4 MG Tablet 6 MG PO (10:19)
[2021-05-16] MEDS: Enoxaparin 80 MG/0.8 ML Syringe SC (10:19)
[2021-05-16] MEDS: Pantoprazole Sodium 20 MG Tablet PO (10:20)
[2021-05-16] MEDS: Levothyroxine 88 MCG Tablet PO (10:20)
[2021-05-16] MEDS: Atorvastatin Calcium 10 MG Tablet 5 MG PO (10:20)
[2021-05-16] MEDS: NIFEdipine 30 MG Tablet PO (10:20)
[2021-05-16] MEDS: Atenolol 25 MG Tablet PO (10:21)
--- NOTE | 2021-05-16 10:29 | CASEMGMT ---
Addendum entered by Celina Kaiser 05/16/21 14:18: SW went past pt's room. No daughter present in room. Charting states pt is alert and orientated x2 so this worker did call pt's daughter Deisy and let her know pt will go to TCU at discharge. Deisy states understanding. Addendum entered by Celina Kaiser 05/16/21 12:42: SW checked with Caitlin with TCU. Pt has to be on 10L or less of Oxygen to discharge to TCU. LINWOOD wrote this on the Green Sheet. Original Note: Social Work Note SW in to speak with pt. SW updated pt that she is still able to discharge to TCU when medically cleared. SW asked pt if she wanted this worker to update any family. Pt states her daughter will be in later today, she will update her then. SW placed Green Sheet on chart. Plan: Discharge to TCU skilled 05/17/2021 Celina JASSO, SENIOR DIRECTOR CREATIVE SERVICES
--- NOTE | 2021-05-16 14:34 | PN.HOSP_ITS ---
Subjective Subjective Feels well. Down to 7 L. Objective Data Objective Data Vital Signs: Vital Signs Temp Pulse Resp BP Pulse Ox 36.8 C 69 20 H 106/79 93 05/16/21 07:52 05/16/21 13:04 05/16/21 07:53 05/16/21 07:52 05/16/21 14:11 Oxygen Flow Rate (L/min) 5 Oxygen Delivery Method Nasal Cannula Weight: 73.2 kg Body Mass Index (BMI) 28.2 Intake & Output: Intake and Output for Last 24 Hours 05/14/21 05/15/21 05/16/21 23:59 23:59 23:59 Intake Total 600 / 700 1200 / 1200 500 / 500 Output Total 1100 / 1100 300 / 300 Balance 600 / 700 100 / 100 200 / 200 Medical Nutrition Assessment Dietitian: Malnutrition Criteria Met Start: 05/13/21 15:45 Freq: Status: Active Protocol: Document 05/13/21 15:46 RMA (Rec: 05/13/21 15:46 RMA [id number]) Nutrition Malnutrition Evidence of Malnutrition Exists Yes Malnutrition (severe): Acute Illness/Injury Evidenced By Suboptimal Energy Intake ( Severe),Weight Loss (Severe) Intake Problem Inadequate Oral Intake Etiology related to increased oxygen needs/decreased appetite x past 2-3 weeks Signs/Symptoms As evidenced by ~6-7% wt loss and decreased oral intake meeting less than 50% estimated nutrition needs x past 1-2 weeks. Status Active Problem Clinical Problem Acute Disease or Injury Related Malnutrition Etiology Severe pro/camryn malnutrition in the context of acute illness related to decreased appetite and unintended wt loss Signs/Symptoms as evidenced by 6-7% wt loss x past 1-2 weeks and PO meeting less than 50% estimated nutrition needs Status Active Problem Recommendation Dietitian Recommendations/Changes Continue liberalized regular diet and ensure compact TID w/ meals. Will add ensure pudding BID w/ lunch and dinner. Lab / Micro Data Result Diagrams: 05/13/21 09:04 05/16/21 05:55 Labs: Laboratory Results - last 24 hr 05/16/21 05:55: Sodium 137, Potassium 4.0, Chloride 102, Carbon Dioxide 29.0, Anion Gap 6, BUN 22 H, Creatinine 0.66, Estim Creat Clear Calc 37.45, Est GFR (MDRD) Af Amer 111, Est GFR (MDRD) Non-Af 92, BUN/Creatinine Ratio 33.5 H, Glucose 78, Calcium 8.2 L, Total Bilirubin 0.80, AST 49 H, ALT 106 H, Alkaline Phosphatase 58, Total Protein 6.1 L, Albumin 2.2 L, Globulin 3.9, Albumin/Globulin Ratio 0.6 L Micro: Microbiology 05/09/21 11:42 Blood Culture (Wb) - Left Hand Blood Culture - Final No growth in 5 days. 05/09/21 11:34 Blood Culture (Wb) - Anticubital Left Blood Culture - Final No growth in 5 days. 05/09/21 19:30 Urine, Clean Catch Legionella Antigen - Final 05/09/21 19:30 Urine, Clean Catch Streptococcus pneumoniae Antigen (M - Final 05/09/21 13:00 Urine, Random Urine Culture - Final Presumptive E. coli Physical Exam Const alert Resp normal respiratory effort, no retractions and no use of accessory muscles Cardio regular rate and regular rhythm GI normal to inspection, nondistended, normoactive bowel sounds, soft to palpation, non-tender and non-distended Extremity normal to inspection Assessment & Plan Assessment/Plan (1) Acute respiratory failure with hypoxia: (2) Pulmonary embolism: QUALIFIERS: Pulmonary embolism type: other Chronicity: acute Acute cor pulmonale presence: without acute cor pulmonale Qualified Code(s): I26.99 - Other pulmonary embolism without acute cor pulmonale (3) Pneumonia due to severe acute respiratory syndrome coronavirus 2 (SARS-CoV-2): PLAN: 1. Acute hypoxic respiratory failure * secondary to COVID-19 pneumonia and bilateral PE * Overall improving and down to 7 L * 05/15: Patient blood pressure on lower side yesterday 99/87, 100/56. BUN elevated 25. Scheduled Lasix is discontinued. Lasix as needed for leg swelling or pulmonary edema. 2. Acute COVID-19: * Onset on May 07, quarantine through 05/16. ID is consulted. * On baricitinib through the * Dexamethasone through the 3. Acute PE * likely secondary to coagulopathy from acute COVID-19 infection. * L continue on subcu Lovenox twice daily, consider transition to oral anticoagulants if patient continues to be stable * Change to apixaban 4. Debility related to the above * PT/OT to evaluate and treat, gentle IV fluids 5. Hypertension/hypothyroidism/hyperlipidemia/GERD/chronic pain syndrome, remained stable * Continue atenolol, levothyroxine, lovastatin, nifedipine, tramadol 6. Prognosis: improving 7. Disposition: Once patient medically stable plan to be for transitional care unit. Hopefully patient can be discharged on the ninth. Charges/Coding Visit Charges Inpatient E&M: 66486 Subs Hosp L2
[2021-05-16] MEDS: APIXABAN 5 MG TABLET 10 MG PO (21:58)
[2021-05-17] VITALS (10 sets, daily range): BP systolic 82–143; BP diastolic 43–72; PULSE 58–89; RESP 16–18; TEMP 36.4–37.1; O2SAT 82–98
[2021-05-17] MEDS: Menthol/Lanolin/Calamine/Znox 113 GM Tube 1 APPLIC TOPICAL ×2 (06:09→14:00)
[2021-05-17 07:59] LABS: Absolute Lymphocyte Count 0.78 X10^3/uL (0.83-4.51); Absolute Neutrophil Count 4.2 X10^3/uL (2.0-7.7); Eosinophil# 0.05 X10^3/uL; Eosinophils% 0.9 % (0-5); Hematocrit 35.8 % (37-47); Hemoglobin 11.3 g/dL (12.0-15.0); Lymphocyte # 0.78 X10^3/ul (0.83-4.51); Lymphocyte % 14.7 % (19-41); Mean Corp Hgb Conc 31.6 g/dL (32-36); Mean Corpuscular Hgb 31.6 pg (27.0-32.0); Mean Platelet Vol. 10.3 fl (6.2-12.0); Monocyte# 0.22 X10^3/uL; Monocyte% 4.2 % (0-10); NRBC Flagged by Analyzer 0 % (0-5); Neutrophil # 4.22 X10^3/uL (2.7-7.7); Neutrophil % 79.6 % (47-70); Platelet Count 280 K/mm3 (150-450); RBC Distribution Width CV 13.9 % (11.6-14.6); RBC Distribution Width SD 50.8 fl (35.1-43.9); Red Blood Count 3.58 M/mm3 (4.2-5.4); White Blood Count 5.3 K/mm3 (4.4-11.0)
[2021-05-17 08:18] LABS: ALB/GLOB Ratio 0.6 RATIO (0.9-2.4); AST(SGOT) 35 U/L (15-37); Alanine Aminotransfer ALT/SGPT 91 U/L (13-56); Albumin, Serum 2.4 g/dL (3.2-5.0); Alkaline Phosphatase 59 U/L (45-117); Anion Gap 6 (5-15); BUN 20 mg/dL (7-18); BUN/Creat Ratio 29.1 RATIO (10-20); Calcium,Total 8.4 mg/dL (8.5-10.1); Chloride 103 mmol/L (98-107); Creatinine, Serum 0.69 mg/dL (0.55-1.02); EST Glomerular Filtration Rate 87 mL/min (>60); Est Glom Filt Rate - Afr Amer 105 mL/min (>60); Estimated Creatinine Clearance 37.45 ml/min; Globulin 4.1 g/dL (2.2-4.2); Glucose 74 mg/dL (74-106); Potassium 4.1 mmol/L (3.5-5.1); Protein, Total 6.5 g/dL (6.4-8.2); Sodium Level 137 mmol/L (136-145)
[2021-05-17] MEDS: Pantoprazole Sodium 20 MG Tablet PO (09:56)
[2021-05-17] MEDS: Atorvastatin Calcium 10 MG Tablet 5 MG PO (09:56)
[2021-05-17] MEDS: Levothyroxine 88 MCG Tablet PO (09:56)
[2021-05-17] MEDS: APIXABAN 5 MG TABLET 10 MG PO (09:57)
[2021-05-17] MEDS: dexAMETHasone 4 MG Tablet 6 MG PO (09:57)
[2021-05-17] MEDS: Acetaminophen 325 MG Tablet 650 MG PO (10:01)
--- NOTE | 2021-05-17 11:46 | PCM.TXEXTCAR ---
Diet 05/10/21 14:15 Diet: Regular - General Food consistency:: Regular Liquid Consistency:: Regular/Thin Type of Dietary Supplement:: Ensure Compact Is pt able to select menu?: Yes Diet Comments: ES compact TID w/ meals; ES pudding w/ lunch and dinner Routine Orders/Code Status O2 Liters per Minute: 4 O2 Frequency: Continuous Keep PO Greater than or Equal to (%): 90 Routine Lab Work: CBC and BMP Code Status: DNRCC-A (no intubation.) Wound(s) buttocks: Wound Type: Pressure Injury Therapies Weight Bearing: Full weight bearing Physical Therapy: Eval and Treat Occupational Therapy: Eval and Treat Problem/Diagnosis (1) Acute respiratory failure with hypoxia: Status: Acute (2) Pulmonary embolism: Status: Acute (3) Pneumonia due to severe acute respiratory syndrome coronavirus 2 (SARS-CoV-2): Status: Acute Allergies/Procedures Done in Hospital Allergies No Known Allergies Allergy (Verified 05/09/21 10:48) Procedures: None Type of Care/Length of Stay Estimated LOS: Convalescent Care Less Than 30 days Type of Care Needed: Skilled Rehab Potential: Good Prognosis: Good Additional Orders/Day of Discharge Day of Discharge: 05/17/21 Dietary and Speech Recommendations Dietitian Recommendations/Changes: Continue liberalized regular diet and ensure compact TID w/ meals. Will add ensure pudding BID w/ lunch and dinner. Discharge Plan Admission Admit Date/Time: 05/09/21 14:52 Primary Reason for Your Visit: COVID 19. Respiratory failure. Attending Provider: Abdiel Rodríguez Primary Care Provider: Carl Roberts Consulting Providers: Andrew Kim Discharge Orders/Prescriptions Prescriptions: New dexamethasone 4 mg Tablet 6 mg PO DAILY 1 Days Qty: 2 RF: 0 Eliquis 5 mg Tablet 10 mg PO BID Qty: 60 RF: 0 Continued nifedipine 30 mg tablet extended release 24hr 30 mg PO DAILY RF: 0 atenolol 25 mg tablet 25 mg PO DAILY RF: 0 multivitamin Tablet 1 tab PO DAILY RF: 0 levothyroxine 88 mcg tablet 88 mcg PO MOTUWETHFRSA RF: 0 omeprazole 20 mg Capsule,Delayed Release(Dr/Ec) 20 mg PO DAILY RF: 0 lovastatin 20 mg tablet 20 mg PO DAILY RF: 0 calcium carbonate-vitamin D3 [Calcium 500 + D] 500 mg(1,250mg) -200 unit Tablet 1 tab PO DAILY RF: 0 glucosamine HCl-vitamin D3 1,000-200 mg-unit Tablet 1 tab PO DAILY RF: 0 Discontinued tramadol 50 mg tablet 50 mg PO BID RF: 0 Referrals / Follow Up: Carl Roberts MD [Primary Care Provider] - Within 2 Weeks Disposition Disposition (needs filled in before D/C Order can be placed): Residential Facility
--- NOTE | 2021-05-17 12:01 | DS.PCM_ITS ---
Providers Date of Admission: 05/09/21 Primary Care Physician: Dr. Carl Roberts MD Consultations 05/10/21 14:32 Consult: Infectious Disease Routine Consulting Provider: Andrew Kim Reason for Consult: COVID 19 EMERGENT Consult: No MD Notified: Yes Date Notified: 05/12/21 Time Notified: 06:43 Method of Notification: Text Reason For Visit: COVID/RESP FAILURE Diagnosis Discharge Diagnosis (1) Acute respiratory failure with hypoxia: Status: Acute Code(s): J96.01 - Acute respiratory failure with hypoxia (2) Pulmonary embolism: Status: Acute Code(s): I26.99 - Other pulmonary embolism without acute cor pulmonale Qualifiers: Pulmonary embolism type: other Chronicity: acute Acute cor pulmonale presence: without acute cor pulmonale Qualified Code(s): I26.99 - Other pulmonary embolism without acute cor pulmonale (3) Pneumonia due to severe acute respiratory syndrome coronavirus 2 (SARS-CoV-2): Status: Acute Code(s): U07.1 - COVID-19; J12.82 - Pneumonia due to coronavirus disease 2019 Medications at Discharge Home Medications atenolol 25 mg PO DAILY 05/09/21 calcium carbonate-vitamin D3 [Calcium 500 + D] 1 tab PO DAILY 05/09/21 glucosamine HCl-vitamin D3 1 tab PO DAILY 05/09/21 levothyroxine 88 mcg PO MOTUWETHFRSA 05/09/21 lovastatin 20 mg PO DAILY 05/09/21 multivitamin 1 tab PO DAILY 05/09/21 nifedipine 30 mg PO DAILY 05/09/21 omeprazole 20 mg PO DAILY 05/09/21 apixaban [Eliquis] 10 mg PO BID #60 tab 05/17/21 dexamethasone 6 mg PO DAILY 1 Days #2 tab 05/17/21 Hospital Course Operations None Procedures None Summary of Care Provided Minutes Spent on Discharge: 35 Hospital Course: 81-year-old female presents on May 09 with shortness of breath. Symptoms began roughly 22 days prior. Patient been vaccinated for COVID-19. Patient has CT of her chest in the emergency room that showed bilateral PE and bilateral pulmonary infiltrates. Patient was placed on BiPAP and air Vo situation but tenuous but patient was started on dexamethasone as well as baricitinib. Patient's course continued to improve. Patient today was ambulated and was 91% on 3 L. Patient will require continuous oxygen for the time being but has continued to improve very quickly. Patient will be discharged to the transitional care unit in stable condition. Physical Exam Const alert Resp normal respiratory effort, no retractions, no use of accessory muscles and clear to auscultation bilaterally Cardio regular rate, regular rhythm, S1 normal heart sound and S2 normal heart sound GI normal to inspection, nondistended, normoactive bowel sounds and soft to palpation Medical Records Data Medical Nutrition Assessment Dietitian: Malnutrition Criteria Met Start: 05/13/21 15:45 Freq: Status: Active Protocol: Document 05/13/21 15:46 RMA (Rec: 05/13/21 15:46 RMA [id number]) Nutrition Malnutrition Evidence of Malnutrition Exists Yes Malnutrition (severe): Acute Illness/Injury Evidenced By Suboptimal Energy Intake ( Severe),Weight Loss (Severe) Intake Problem Inadequate Oral Intake Etiology related to increased oxygen needs/decreased appetite x past 2-3 weeks Signs/Symptoms As evidenced by ~6-7% wt loss and decreased oral intake meeting less than 50% estimated nutrition needs x past 1-2 weeks. Status Active Problem Clinical Problem Acute Disease or Injury Related Malnutrition Etiology Severe pro/camryn malnutrition in the context of acute illness related to decreased appetite and unintended wt loss Signs/Symptoms as evidenced by 6-7% wt loss x past 1-2 weeks and PO meeting less than 50% estimated nutrition needs Status Active Problem Recommendation Dietitian Recommendations/Changes Continue liberalized regular diet and ensure compact TID w/ meals. Will add ensure pudding BID w/ lunch and dinner. Weight / BMI Weight Weight: 72.8 kg Body Mass Index (BMI) 28.2 ABG / Lab / Microbiology Data Result Diagrams: 05/17/21 06:43 05/17/21 06:43 Laboratory: Laboratory Results - last 24 hr 05/17/21 06:43: WBC 5.3, RBC 3.58 L, Hgb 11.3 L, Hct 35.8 L, MCV 100.0 H, MCH 31.6, MCHC 31.6 L, RDW Std Deviation 50.8 H, RDW Coeff of Fouzia 13.9, Plt Count 280, MPV 10.3, Immature Gran % (Auto) 0.600, Neut % (Auto) 79.6 H, Lymph % (Auto) 14.7 L, Frio % (Auto) 4.2, Eos % (Auto) 0.9, Baso % (Auto) 0.0, Absolute Neuts (auto) 4.2, Absolute Lymphs (auto) 0.78 L, Nucleated RBC % 0 05/17/21 06:43: Sodium 137, Potassium 4.1, Chloride 103, Carbon Dioxide 28.0, Anion Gap 6, BUN 20 H, Creatinine 0.69, Estim Creat Clear Calc 37.45, Est GFR (MDRD) Af Amer 105, Est GFR (MDRD) Non-Af 87, BUN/Creatinine Ratio 29.1 H, Glucose 74, Calcium 8.4 L, Total Bilirubin 0.80, AST 35, ALT 91 H, Alkaline Phosphatase 59, Total Protein 6.5, Albumin 2.4 L, Globulin 4.1, Albumin/Globulin Ratio 0.6 L Microbiology: Microbiology 05/09/21 11:42 Blood Culture (Wb) - Left Hand Blood Culture - Final No growth in 5 days. 05/09/21 11:34 Blood Culture (Wb) - Anticubital Left Blood Culture - Final No growth in 5 days. 05/09/21 19:30 Urine, Clean Catch Legionella Antigen - Final 05/09/21 19:30 Urine, Clean Catch Streptococcus pneumoniae Antigen (M - Final 05/09/21 13:00 Urine, Random Urine Culture - Final Presumptive E. coli Meaningful Use Info Meaningful Use Diagnoses (Choose all that apply): None applicable Discharge Plan Admission Admit Date/Time: 05/09/21 14:52 Primary Reason for Your Visit: COVID 19. Respiratory failure. Attending Provider: Abdiel Rodríguez Primary Care Provider: Carl Roberts Consulting Providers: Andrew Kim Discharge Orders/Prescriptions Prescriptions: New dexamethasone 4 mg Tablet 6 mg PO DAILY 1 Days Qty: 2 RF: 0 Eliquis 5 mg Tablet 10 mg PO BID Qty: 60 RF: 0 Continued nifedipine 30 mg tablet extended release 24hr 30 mg PO DAILY RF: 0 atenolol 25 mg tablet 25 mg PO DAILY RF: 0 multivitamin Tablet 1 tab PO DAILY RF: 0 levothyroxine 88 mcg tablet 88 mcg PO MOTUWETHFRSA RF: 0 omeprazole 20 mg Capsule,Delayed Release(Dr/Ec) 20 mg PO DAILY RF: 0 lovastatin 20 mg tablet 20 mg PO DAILY RF: 0 calcium carbonate-vitamin D3 [Calcium 500 + D] 500 mg(1,250mg) -200 unit Ta blet 1 tab PO DAILY RF: 0 glucosamine HCl-vitamin D3 1,000-200 mg-unit Tablet 1 tab PO DAILY RF: 0 Discontinued tramadol 50 mg tablet 50 mg PO BID RF: 0 Referrals / Follow Up: Carl Roberts MD [Primary Care Provider] - Within 2 Weeks Disposition Disposition (needs filled in before D/C Order can be placed): Senior Living Facility Charges/Coding Visit Charges Inpatient E&M: 66440 Disch Hosp
--- NOTE | 2021-05-17 16:05 | NURSING ---
Report called to [facility] Delgadillo in TCU.
== END 2021-05-17 16:11 | disposition skilled nursing facility (03) | DRG 177 ==
LOC: ED 12:30 → PCU 17:25 → MS3 05-13 20:57
PROVIDERS: Admitting Provider Internal Medicine; Emergency Provider Student in an Organized Health Care Education/Training Program; PCP Family Medicine
DX: U07.1 COVID-19 (principal); J96.01 Acute respiratory failure with hypoxia; I26.99 Other pulmonary embolism without acute cor pulmonale; J12.82 Pneumonia due to coronavirus disease 2019; E87.2 Acidosis; D68.8 Other specified coagulation defects; F17.210 Nicotine dependence, cigarettes, uncomplicated; E86.0 Dehydration; R53.81 Other malaise; I10 Essential (primary) hypertension; E03.9 Hypothyroidism, unspecified; E78.5 Hyperlipidemia, unspecified; K21.9 Gastro-esophageal reflux disease without esophagitis; G89.4 Chronic pain syndrome; Z66 Do not resuscitate
CPT/HCPCS: 36415; 71045; 71275; 80053; 81001; 83605; 83880; 85025; 85379; 85610; 85730; 87040; 87086; 87088; 87449; 93005; 94002; 94003; 94660; 94762; 97110; 97161; 97166; 97530; 97535; 97802; 97803; 99251; 99285; J7030; J7040; Q9967; A4216; G0463; J1940

== ENCOUNTER 2021-05-17 16:29 | Inpatient (IN) | payer MEDICARE, OTHER, SELFPAY ==
[2021-05-17 16:41] VITALS: BP 101/63; PULSE 74; RESP 18; TEMP 36.8; O2SAT 97; BMI 26.6
[2021-05-17] MEDS: APIXABAN 5 MG TABLET 10 MG PO (17:59)
--- NOTE | 2021-05-17 18:31 | HP.PCM_ITS ---
HPI - General General Date of Admission: 05/17/21 HPI Narrative 05/09/2021 STEFANO WASHINGTON, is a 81 Female who presents to [facility] Emergency Department with shortness of breath. 05/09/2021 EKG normal sinus rhythm, normal EKG. Hypoxia, cough, malaise. Covid19 x 19 days, not eating, not drinking, vaccinated. Difficulty getting around, incontinent. 65% on room air, Finished Dexamethasone. Chest X-ray showed bilateral infiltrates, WBC 11.3, Lactic acid 2.7. 05/09/2021 CTA chest showed bilateral small pulmonary emboli, ground glass opacity infiltrates. 05/09/2021 Admit to Hospital. Decadron for covid19 pneumonia. Lovenox twice daily for pulmonary embolism. PT/OT for evaluation, gentle IV fluids. 05/10/2021 Breathing worse, 15 Liters oxygen per nasal cannula transitioned to BiPAP. Lasix IV given. 05/11/2021 Feels better, still on BiPAP. Repeat Lasix IV. 05/12/2021 Dr. Kim added baricitinib. On Airvo. 05/13/2021 Breathing better, tolerating Airvo. Baricitinib thru 05/25/2021 or discharge. 05/14/2021 Lasix as needed. 05/15/2021 Feels same, on Airvo, incentive spirometry, PEP. PT/OT for TCU. 05/16/2021 Feels well, oxygen 7 liters per nasal cannula. Dexamethasone thru 05/19/2021. Change Lovenox to Eliquis twice daily. 05/17/2021 Pulsox 91% on 3 liters oxygen per nasal cannula. 05/17/2021 Admit to TCU with debility, here for rehabilitation, strengthening, prior to discharge home with family. [facility] Medical History Former smoker GERD (gastroesophageal reflux disease) High cholesterol Hypertension Hypothyroidism Home Medications atenolol 25 mg PO DAILY 05/09/21 [History Last Taken 05/09/21] calcium carbonate-vitamin D3 [Calcium 500 + D] 1 tab PO DAILY 05/09/21 [History Last Taken 05/08/21] glucosamine HCl-vitamin D3 1 tab PO DAILY 05/09/21 [History Last Taken 05/08/21] levothyroxine 88 mcg PO MOTUWETHFRSA 05/09/21 [History Last Taken Unknown] lovastatin 20 mg PO DAILY 05/09/21 [History Last Taken 05/09/21] multivitamin 1 tab PO DAILY 05/09/21 [History Last Taken 05/09/21] nifedipine 30 mg PO DAILY 05/09/21 [History Last Taken 05/09/21] omeprazole 20 mg PO DAILY 05/09/21 [History Last Taken 05/09/21] apixaban [Eliquis] 10 mg PO BID 05/17/21 [History Last Taken Unknown] dexamethasone 6 mg PO DAILY 05/17/21 [History Last Taken Unknown] Allergy/AdvReac Type Severity Reaction Status Date / Time No Known Allergies Allergy Verified 05/09/21 10:48 Social History (Updated 05/17/21 @ 18:[address] Dedrick Styles MD) household members: children Smoking Status: Former smoker alcohol intake: never substance use type: does not use ROS Constitutional Constitutional: Denies chills, fever(s) or weight gain ENT HEENT: Denies headache(s), nasal congestion or nasal discharge Cardiovascular Cardiovascular: Denies chest pain or palpitations Respiratory/Chest Respiratory/Chest: Denies cough, excessive phlegm production or shortness of breath with exertion Gastrointestinal Gastrointestinal: Denies abdominal pain, nausea or vomiting Genitourinary Genitourinary: Denies dysuria Musculoskeletal Musculoskeletal: Denies joint pain or joint swelling Integumentary Integumentary: Denies rash or wounds Neurologic Neurologic: Denies focal weakness, numbness or tingling Psychiatric Psychiatric: Reports auditory hallucinations; Denies anxiety, depression, homicidal ideation or suicidal ideation Vital Signs Vital Signs Vital Signs: 05/17/21 16:41 Temperature 98.2 F Temperature Source Temporal Pulse Rate 74 Pulse Rhythm Regular Pulse Strength Normal (2+) Respiratory Rate 18 Respiratory Effort Normal Non-Labored Respiratory Depth Normal Respiratory Pattern Normal Blood Pressure 101/63 Blood Pressure Mean 75 Blood Pressure Source Monitor Blood Pressure Position Semi-Fowlers Blood Pressure Location Right Arm Pulse Ox 97 Oxygen Delivery Method Nasal Cannula Oxygen Flow Rate (L/min) 5 Weight Weight: 70.307 kg Body Mass Index (BMI) 26.6 Physical Exam Const alert and oriented x3 General Appearance: cooperative HEENT normocephalic Eyes PERRL and EOMs intact bilaterally Neck supple, no JVD and no carotid bruits Resp normal respiratory effort, normal air movement and clear to auscultation bilaterally Cardio regular rate and regular rhythm GI normal to inspection, nondistended, normoactive bowel sounds, non-tender and non-distended Extremity normal capillary refill General Extremity: Negative for edema Skin no rashes or lesions noted General Skin Exam: no breakdown Psych affect normal Appearance: appropriate Results Lab / Micro Data Result Diagrams: 05/18/21 06:40 05/18/21 06:40 Assessment & Plan Assessment/Plan (1) Debility: (2) Pneumonia due to severe acute respiratory syndrome coronavirus 2 (SARS-CoV-2): (3) Acute respiratory failure with hypoxia: (4) Pulmonary embolism: QUALIFIERS: Acute cor pulmonale presence: without acute cor pulmonale Chronicity: acute Pulmonary embolism type: other Qualified Code(s): I26.99 - Other pulmonary embolism without acute cor pulmonale (5) Hypertension: (6) Osteoarthritis: (7) Hypothyroidism: (8) Hyperlipidemia: (9) Gastroesophageal reflux disease: PLAN: 81 year old female with below past medical history hospitalized for acute respiratory failure with hypoxia secondary to covid19, complicated by pulmonary embolism, admitted to TCU with debility, here for rehabilitation, strengthening, prior to discharge home with family. * Debility - PT/OT. * Pain - Tylenol 1000mg Q6H prn pain (1-10). * Bowel - Miralax 17gm daily, Senna/colace 1 tablet twice daily, Dulcolax 10mg daily PRN. * Adult immunization - Administer prevnar 13, pneumovax 23, fluzone, covid19 vaccine as appropriate. * DVT prophylaxis - Not necessary, on eliquis. * Pulmonary embolism - Eliquis 10mg twice daily x 7 days, then 5mg twice daily thru 11/07/2021. * Hypertension - Atenolol 25mg daily, Nifedipine 30mg daily. * Hyperlipidemia - Atorvastatin 5mg QHS. * Calcium deficiency - Calcium D 1 tablet daily. * covid91 pneumonia - Dexamethasone 6mg daily thru 05/18/2021. * Nutrition - MVI daily, Ensure Compact 118ml po tidcm. * Hypothyroidism - Levothyroxine 88mcg 6days/week. * Skin irritation - Camoseptine topical twice daily. * Tinea Corporis - Nystatin powder topical twice daily. * GERD - Pantoprazole 20mg daily.
[2021-05-17 19:40] VITALS: O2SAT 97
[2021-05-17] MEDS: Senna/Docusate Sodium 1 Tablet PO (19:53)
[2021-05-17] MEDS: Nystatin Powder 15gm Bottle 1 APPLIC TOPICAL (19:54)
[2021-05-17] MEDS: Menthol/Lanolin/Calamine/Znox 113 GM Tube 1 APPLIC TOPICAL (19:54)
[2021-05-18] MEDS: APIXABAN 5 MG TABLET 10 MG PO ×2 (06:27→17:09)
[2021-05-18] MEDS: Atorvastatin Calcium 10 MG Tablet 5 MG PO (06:28)
[2021-05-18] MEDS: Pantoprazole Sodium 20 MG Tablet PO (06:28)
[2021-05-18] MEDS: dexAMETHasone 4 MG Tablet 6 MG PO (06:29)
[2021-05-18] MEDS: Nystatin Powder 15gm Bottle 1 APPLIC TOPICAL ×2 (06:30→20:00)
[2021-05-18] MEDS: Senna/Docusate Sodium 1 Tablet PO ×2 (06:30→17:09)
[2021-05-18] MEDS: Polyethylene Glycol 3350 17 GM PACKET PO (06:30)
[2021-05-18] MEDS: Menthol/Lanolin/Calamine/Znox 113 GM Tube 1 APPLIC TOPICAL ×2 (06:31→19:59)
[2021-05-18 06:32] VITALS: O2SAT 93
[2021-05-18 06:33] VITALS: BP 93/48; PULSE 80
[2021-05-18 07:03] LABS: Absolute Lymphocyte Count 0.95 X10^3/uL (0.83-4.51); Eosinophil# 0.13 X10^3/uL; Eosinophils% 1.7 % (0-5); Hematocrit 36.6 % (37-47); Hemoglobin 11.8 g/dL (12.0-15.0); Lymphocyte # 0.95 X10^3/ul (0.83-4.51); Lymphocyte % 12.7 % (19-41); Mean Corp Hgb Conc 32.2 g/dL (32-36); Mean Corpuscular Volume 99.2 fL (81-99); Monocyte# 0.32 X10^3/uL; Monocyte% 4.3 % (0-10); NRBC Flagged by Analyzer 0 % (0-5); Neutrophil # 6.03 X10^3/uL (2.7-7.7); Neutrophil % 80.8 % (47-70); Platelet Count 305 K/mm3 (150-450); RBC Distribution Width CV 13.9 % (11.6-14.6); RBC Distribution Width SD 50.3 fl (35.1-43.9); Red Blood Count 3.69 M/mm3 (4.2-5.4); White Blood Count 7.5 K/mm3 (4.4-11.0)
[2021-05-18 07:16] LABS: Anion Gap 6 (5-15); BUN 21 mg/dL (7-18); BUN/Creat Ratio 27.9 RATIO (10-20); Calcium,Total 8.4 mg/dL (8.5-10.1); Chloride 105 mmol/L (98-107); Creatinine, Serum 0.75 mg/dL (0.55-1.02); EST Glomerular Filtration Rate 78 mL/min (>60); Est Glom Filt Rate - Afr Amer 95 mL/min (>60); Estimated Creatinine Clearance 37.45 ml/min; Glucose 85 mg/dL (74-106); Potassium 4.3 mmol/L (3.5-5.1); Sodium Level 139 mmol/L (136-145)
[2021-05-18 07:42] VITALS: O2SAT 92
[2021-05-18] MEDS: Multivitamins,Therapeutic Tablet 1 TABLET PO (08:05)
[2021-05-18] MEDS: Calcium Carb/Vitamin D 1 TABLET Tablet PO (08:05)
--- NOTE | 2021-05-18 08:38 | PCA ---
Spt-Stand pivot transferring pt this morning due to her having a hard time to breath o2 stats dropping into the 80s with activity.
[2021-05-18] MEDS: Tuberculin,Purif.prot.deriv. 50 TU/ML Vial 0.1 ML ID (10:16)
[2021-05-18 12:44] VITALS: BP 97/51; PULSE 77; RESP 16; TEMP 36.3; O2SAT 95
[2021-05-18 20:03] VITALS: PULSE 96; RESP 18; O2SAT 93
--- NOTE | 2021-05-18 22:59 | PCA ---
This CLAIMS REPRESENTATIVE offered HS care and patient refused. she did not wish to change out of here clothes stating I will sleep with what I have on. I will change in the morning
[2021-05-19] MEDS: Polyethylene Glycol 3350 17 GM PACKET PO (06:08)
[2021-05-19] MEDS: Atorvastatin Calcium 10 MG Tablet 5 MG PO (06:09)
[2021-05-19] MEDS: APIXABAN 5 MG TABLET 10 MG PO ×2 (06:11→17:55)
[2021-05-19] MEDS: Levothyroxine 88 MCG Tablet PO (06:12)
[2021-05-19] MEDS: Senna/Docusate Sodium 1 Tablet PO ×2 (06:13→17:55)
[2021-05-19] MEDS: Pantoprazole Sodium 20 MG Tablet PO (06:13)
[2021-05-19] MEDS: Menthol/Lanolin/Calamine/Znox 113 GM Tube 1 APPLIC TOPICAL ×2 (06:16→21:42)
[2021-05-19] MEDS: Nystatin Powder 15gm Bottle 1 APPLIC TOPICAL ×2 (06:17→21:42)
[2021-05-19 06:18] VITALS: BP 101/49; PULSE 75; O2SAT 90
[2021-05-19 07:30] VITALS: O2SAT 96
[2021-05-19] MEDS: Multivitamins,Therapeutic Tablet 1 TABLET PO (08:16)
[2021-05-19] MEDS: Calcium Carb/Vitamin D 1 TABLET Tablet PO (08:16)
--- NOTE | 2021-05-19 10:52 | CASEMGMT ---
Social Work Met with patient for initial assessment. Discussed code status. Pt confirmed DNR-CCA, no intubation. MOLST form completed, communication to , placed in chart. Explained Medicare benefit. Encouraged to contact secondary insurance to ensure copay coverage. Patient's goal is to return home, living with MICAH, and assisted her with meals. 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 SW to continue to follow for DC planning. Carolin Arnold, DIETIST POWER ENGINEER
--- NOTE | 2021-05-19 14:50 | PHA.CONS_ITS ---
Progress Note - Pharmacy Subjective: TCU Admission Objective: Allergies No Known Allergies Allergy (Verified 05/09/21 10:48) Current Medications Generic Name Dose Route Start Last Admin Trade Name Arronq PRN Reason Stop Dose Admin Acetaminophen 1,000 mg 05/17/21 18:47 Acetaminophen 500 Mg Tablet PO Q6H PRN PRN Pain Score 1-10 Apixaban 10 mg 05/17/21 18:00 05/19/21 06:11 Apixaban 5 Mg Tablet PO 05/24/21 18:01 10 mg BID JUNAID Administration Apixaban 5 mg 05/25/21 06:00 Apixaban 5 Mg Tablet PO 11/07/21 23:55 BID JUNAID Atenolol 25 mg 05/18/21 06:00 05/19/21 06:13 Atenolol 25 Mg Tablet PO Not Given DAILY ON LICENSE OF [facility] Atorvastatin Calcium 5 mg 05/18/21 06:00 05/19/21 06:09 Atorvastatin Calcium 10 Mg Tablet PO 5 mg DAILY JUNAID Administration Bisacodyl 10 mg 05/17/21 18:47 Bisacodyl 5 Mg Tablet PO DAILY PRN Constipation Calamine/Phenol 1 applic 05/17/21 22:00 05/19/21 06:16 Menthol/Lanolin/Calamine/Znox 113 Gm Tube TOPICAL 1 applic 0600,2200 ON LICENSE OF [facility] Administration Protocol Calcium/Vitamin D 1 tablet 05/18/21 08:00 05/19/21 08:16 Calcium Carb/Vitamin D 1 Tablet Tablet PO 1 tablet BREAKFAST JUNAID Administration Levothyroxine Sodium 88 mcg 05/19/21 06:00 05/19/21 06:12 Levothyroxine 88 Mcg Tablet PO 88 mcg [id number]@0600 JUNAID Administration Multivitamins 1 tablet 05/18/21 08:00 05/19/21 08:16 Multivitamins,Therapeutic Tablet PO 1 tablet BREAKFAST JUNAID Administration Nifedipine 30 mg 05/18/21 06:00 05/19/21 06:13 Nifedipine 30 Mg Tablet PO Not Given DAILY ON LICENSE OF [facility] Nutritional Formula (Lactose Free) 118 ml 05/17/21 17:45 05/19/21 11:51 Ensure Compact 118 Ml Liquid PO 118 ml TIDCM JUNAID Administration Nystatin 1 applic 05/17/21 22:00 05/19/21 06:17 Nystatin Powder 15gm Bottle TOPICAL 1 applic 0600,2200 ON LICENSE OF [facility] Administration Protocol Pantoprazole Sodium 20 mg 05/18/21 06:00 05/19/21 06:13 Pantoprazole Sodium 20 Mg Tablet PO 20 mg DAILY JUNAID Administration Polyethylene Glycol 17 gm 05/18/21 06:00 05/19/21 06:08 Polyethylene Glycol 3350 17 Gm Packet PO 17 gm DAILY JUNAID Administration Senna/Docusate Sodium 1 tablet 05/17/21 19:00 05/19/21 06:13 Senna/Docusate Sodium 1 Tablet PO 1 tablet BID JUNAID Administration Tuberculin PPD 0.1 ml 05/25/21 10:00 Tuberculin,Purif.Prot.Deriv. 50 Tu/Ml Vial ID 05/25/21 10:01 X1 ONE Problem List (Last Reviewed 05/17/21 @ 18:[address] Dedrick Styles MD) Gastroesophageal reflux disease (Acute) Hyperlipidemia (Acute) Hypothyroidism (Acute) Osteoarthritis (Acute) Hypertension (Chronic) Debility (Acute) Acute respiratory failure with hypoxia (Acute) Pulmonary embolism (Acute) Pneumonia due to severe acute respiratory syndrome coronavirus 2 (SARS-CoV-2) (Acute) Vital Signs Temp Pulse Resp BP Pulse Ox 97.3 F L 75 18 101/49 L 96 05/18/21 12:44 05/19/21 06:18 05/18/21 20:03 05/19/21 06:18 05/19/21 07:30 Oxygen Flow Rate (L/min) 5 Oxygen Delivery Method Nasal Cannula Weight: 70.307 kg Body Mass Index (BMI) 26.6 Sodium 139 mmol/L (136-145) 05/18/21 06:40 Potassium 4.3 mmol/L (3.5-5.1) 05/18/21 06:40 Chloride 105 mmol/L (98-107) 05/18/21 06:40 Carbon Dioxide 28.0 mmol/L (21.0-32.0) 05/18/21 06:40 Anion Gap 6 (5-15) 05/18/21 06:40 BUN 21 mg/dL (7-18) H 05/18/21 06:40 Creatinine 0.75 mg/dL (0.55-1.02) 05/18/21 06:40 Est GFR (MDRD) Af Amer 95 mL/min (>60) 05/18/21 06:40 Est GFR (MDRD) Non-Af 78 mL/min (>60) 05/18/21 06:40 BUN/Creatinine Ratio 27.9 RATIO (10-20) H 05/18/21 06:40 Glucose 85 mg/dL (74-106) 05/18/21 06:40 Assessment/Plan: 1. Pain: acetaminophen 1000mg PO Q6H PRN pain 1-10. Please continue to monitor for S/S of pain and PRN usage. 2. PE: apixaban 10mg PO BID thru 05/24/21, then apixaban 5mg PO BID thru 11/07/21. Please continue to monitor for S/S of bleeding and hemoglobin (last 11.8g/dL). *3. Hypertension: atenolol 25mg PO daily and nifedipine 30mg PO daily. Please continue to monitor BP (last 101/49) and HR (last 75). Please consider adding hold parameters based on last BP. Thanks. 4. GERD: pantoprazole 20mg PO daily. Please continue to monitor for S/S of GERD and diarrhea. *5. Hyperlipidemia: atorvastatin 5mg PO QHS. Please consider ordering a lipid panel. Patient does not have one in the chart. Thanks. Please continue to monitor for muscle pain. *6. Hypothyroidism: levothyroxine 88mcg PO daily except Wednesday. Please consider ordering a TSH. Patient does not have one in the chart. Thanks. Please continue to monitor for S/S of hypo/hyperthyroidism. *7. Nutrition/calcium deficiency: multivitamin 1T PO breakfast and calcium/vitamin D 1T PO breakfast. Please continue to monitor calcium (last 8.4mg/dL). Please consider ordering a vitamin D level. Patient does not have one in the chart. Thanks. Psychotropic Medications: None Unnecessary Medications: None Bowel Regimen: Miralax 17gm PO daily, senna/docusate 1T PO BID and bisacodyl 10mg PO daily PRN constipation. Please continue to monitor for S/S of constipation and PRN usage. Date of Note:: 05/19/21
[2021-05-19 16:00] VITALS: BP 92/52; PULSE 90; RESP 20; TEMP 36.2; O2SAT 95
[2021-05-20] MEDS: Polyethylene Glycol 3350 17 GM PACKET PO (06:04)
[2021-05-20] MEDS: Levothyroxine 88 MCG Tablet PO (06:04)
[2021-05-20] MEDS: Atenolol 25 MG Tablet PO (06:04)
[2021-05-20] MEDS: Senna/Docusate Sodium 1 Tablet PO ×2 (06:04→17:01)
[2021-05-20] MEDS: Pantoprazole Sodium 20 MG Tablet PO (06:04)
[2021-05-20] MEDS: APIXABAN 5 MG TABLET 10 MG PO ×2 (06:05→17:01)
[2021-05-20] MEDS: Atorvastatin Calcium 10 MG Tablet 5 MG PO (06:05)
[2021-05-20] MEDS: Nystatin Powder 15gm Bottle 1 APPLIC TOPICAL ×2 (06:08→20:04)
[2021-05-20] MEDS: Menthol/Lanolin/Calamine/Znox 113 GM Tube 1 APPLIC TOPICAL ×2 (06:08→20:04)
[2021-05-20] MEDS: Calcium Carb/Vitamin D 1 TABLET Tablet PO (07:54)
[2021-05-20] MEDS: Multivitamins,Therapeutic Tablet 1 TABLET PO (07:54)
[2021-05-20 14:24] VITALS: BP 109/65; PULSE 79; RESP 18; TEMP 36.4; O2SAT 97
[2021-05-21] MEDS: Menthol/Lanolin/Calamine/Znox 113 GM Tube 1 APPLIC TOPICAL ×2 (05:34→20:54)
[2021-05-21] MEDS: APIXABAN 5 MG TABLET 10 MG PO ×2 (05:35→17:45)
[2021-05-21] MEDS: Nystatin Powder 15gm Bottle 1 APPLIC TOPICAL ×2 (05:35→20:53)
[2021-05-21] MEDS: Polyethylene Glycol 3350 17 GM PACKET PO (05:35)
[2021-05-21] MEDS: Atorvastatin Calcium 10 MG Tablet 5 MG PO (05:36)
[2021-05-21] MEDS: NIFEdipine 30 MG Tablet PO (05:36)
[2021-05-21] MEDS: Atenolol 25 MG Tablet PO (05:36)
[2021-05-21] MEDS: Levothyroxine 88 MCG Tablet PO (05:36)
[2021-05-21] MEDS: Senna/Docusate Sodium 1 Tablet PO ×2 (05:36→17:45)
[2021-05-21] MEDS: Pantoprazole Sodium 20 MG Tablet PO (05:36)
[2021-05-21 06:53] VITALS: O2SAT 95
[2021-05-21] MEDS: Multivitamins,Therapeutic Tablet 1 TABLET PO (08:06)
[2021-05-21] MEDS: Calcium Carb/Vitamin D 1 TABLET Tablet PO (08:06)
[2021-05-21 13:42] VITALS: BP 91/49; PULSE 69; RESP 14; TEMP 36.6; O2SAT 95
[2021-05-21 14:27] VITALS: BP 108/45; PULSE 69; O2SAT 98
--- NOTE | 2021-05-21 16:48 | CHAPLAIN ---
Type of Pastoral Visit _x__ Initial Visit ___ Follow-up Visit ___ On-call Visit ___ General Patient Visit ___ Spiritual Assessment ___ Family Conference ___ Bereavement ___ Rapid Response ___ Code Blue ___ Other (describe below) Pastoral Care Referral From _x__ Patient ___ Family ___ Nurse ___ Physician ___ Embedded Systems Engineer ___ Salvage Worker ___ Other (describe below) Sacrament/Intervention _x__ Active listening ___ Anointing ___ Buddhist ___ Bereavement ___ Communion _x__ Urszula exploration ___ _x__ Life review _x__ Prayer ___ Reconciliation ___ Sacrament of Sick _x__ Supportive presence ___ Wedding ___ Other (describe below) Pastoral Comments patient is welcoming and 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
[2021-05-21 22:03] VITALS: PULSE 87; RESP 18; O2SAT 98
[2021-05-22] MEDS: Nystatin Powder 15gm Bottle 1 APPLIC TOPICAL ×2 (05:50→20:42)
[2021-05-22] MEDS: Menthol/Lanolin/Calamine/Znox 113 GM Tube 1 APPLIC TOPICAL ×2 (05:51→20:42)
[2021-05-22] MEDS: Polyethylene Glycol 3350 17 GM PACKET PO (05:52)
[2021-05-22] MEDS: Atorvastatin Calcium 10 MG Tablet 5 MG PO (05:57)
[2021-05-22] MEDS: NIFEdipine 30 MG Tablet PO (05:57)
[2021-05-22] MEDS: Atenolol 25 MG Tablet PO (05:57)
[2021-05-22] MEDS: Pantoprazole Sodium 20 MG Tablet PO (05:57)
[2021-05-22] MEDS: Senna/Docusate Sodium 1 Tablet PO ×2 (05:57→17:42)
[2021-05-22] MEDS: APIXABAN 5 MG TABLET 10 MG PO ×2 (05:58→17:42)
[2021-05-22] MEDS: Levothyroxine 88 MCG Tablet PO (05:58)
[2021-05-22] MEDS: Multivitamins,Therapeutic Tablet 1 TABLET PO (08:11)
[2021-05-22] MEDS: Calcium Carb/Vitamin D 1 TABLET Tablet PO (08:12)
[2021-05-22 10:00] VITALS: PULSE 76; RESP 18; O2SAT 98
--- NOTE | 2021-05-22 13:26 | PT ---
POC meeting held with pt's dtr and pt. Updated on pt's current level of assistance needed. Pt will likely return home with O2. Family and pt voiced understanding. Pt will also likely need assistance with ADLs and other tasks at home. Pt's dtr stated family is able to provide assistance at home for pt. Will set up family training with pt's dtr once closer to discharge. Pt's dtr also given info on ramps and numbers to contact regarding ramp rental and installation.
[2021-05-22 13:33] VITALS: BP 105/50; PULSE 75; RESP 18; TEMP 36.1; O2SAT 94
[2021-05-23] MEDS: APIXABAN 5 MG TABLET 10 MG PO ×2 (05:24→16:37)
[2021-05-23] MEDS: Polyethylene Glycol 3350 17 GM PACKET PO (05:24)
[2021-05-23] MEDS: Atorvastatin Calcium 10 MG Tablet 5 MG PO (05:24)
[2021-05-23] MEDS: Senna/Docusate Sodium 1 Tablet PO ×2 (05:24→16:37)
[2021-05-23] MEDS: Pantoprazole Sodium 20 MG Tablet PO (05:24)
[2021-05-23] MEDS: Levothyroxine 88 MCG Tablet PO (05:24)
[2021-05-23] MEDS: NIFEdipine 30 MG Tablet PO (05:26)
[2021-05-23] MEDS: Menthol/Lanolin/Calamine/Znox 113 GM Tube 1 APPLIC TOPICAL ×2 (05:26→20:35)
[2021-05-23] MEDS: Atenolol 25 MG Tablet PO (05:26)
[2021-05-23] MEDS: Nystatin Powder 15gm Bottle 1 APPLIC TOPICAL ×2 (05:34→20:36)
[2021-05-23 06:47] VITALS: BP 116/48; PULSE 75
[2021-05-23 07:38] VITALS: O2SAT 98
[2021-05-23] MEDS: Calcium Carb/Vitamin D 1 TABLET Tablet PO (09:00)
[2021-05-23] MEDS: Multivitamins,Therapeutic Tablet 1 TABLET PO (09:00)
[2021-05-23] MEDS: Bisacodyl 5 MG Tablet 10 MG PO (09:04)
--- NOTE | 2021-05-23 09:07 | NURSING ---
no bm in 3 days,prn Dulcolax given.
--- NOTE | 2021-05-23 14:30 | CASEMGMT ---
Social Work BIMS and PHQ-9 completed for MDS assessment. Carolin Arnold, RETAIL AND RESTAURANT ASSOCIATE VIDEO EDITOR
[2021-05-23 15:49] VITALS: BP 110/55; PULSE 78; RESP 20; TEMP 36.9; O2SAT 95
[2021-05-23 20:45] VITALS: PULSE 77; RESP 16; O2SAT 95
[2021-05-24] MEDS: Pantoprazole Sodium 20 MG Tablet PO (05:57)
[2021-05-24] MEDS: Polyethylene Glycol 3350 17 GM PACKET PO (05:57)
[2021-05-24] MEDS: Menthol/Lanolin/Calamine/Znox 113 GM Tube 1 APPLIC TOPICAL ×2 (05:57→19:53)
[2021-05-24] MEDS: Levothyroxine 88 MCG Tablet PO (05:58)
[2021-05-24] MEDS: Atorvastatin Calcium 10 MG Tablet 5 MG PO (05:59)
[2021-05-24] MEDS: APIXABAN 5 MG TABLET 10 MG PO ×2 (05:59→17:40)
[2021-05-24] MEDS: Senna/Docusate Sodium 1 Tablet PO ×2 (06:00→17:41)
[2021-05-24] MEDS: Nystatin Powder 15gm Bottle 1 APPLIC TOPICAL ×2 (06:01→19:53)
[2021-05-24 06:02] VITALS: BP 95/53; PULSE 64
[2021-05-24] MEDS: Bisacodyl 5 MG Tablet 10 MG PO (06:07)
--- NOTE | 2021-05-24 07:36 | NURSING ---
Patient had no BM since 05/18. Updated Dr. Styles, order for soap suds enema.
[2021-05-24] MEDS: Calcium Carb/Vitamin D 1 TABLET Tablet PO (07:58)
[2021-05-24] MEDS: Multivitamins,Therapeutic Tablet 1 TABLET PO (07:58)
[2021-05-24 10:00] VITALS: PULSE 96; RESP 18; O2SAT 93
[2021-05-24 15:00] VITALS: BP 96/55; PULSE 88; RESP 14; TEMP 36.1; O2SAT 99
[2021-05-24 19:54] VITALS: O2SAT 98
[2021-05-25] MEDS: Acetaminophen 500 MG Tablet 1000 MG PO (01:57)
--- NOTE | 2021-05-25 02:01 | NURSING ---
Pt c/o bilateral heel pain. Heels soft, red, mushy, and intact. Floated on one pillow. Medicated w/ Tylenol [address] order. Will continue to monitor.
[2021-05-25 05:01] VITALS: BP 88/52; PULSE 73; RESP 20; TEMP 36.2; O2SAT 97
[2021-05-25] MEDS: Senna/Docusate Sodium 1 Tablet PO (05:04)
[2021-05-25] MEDS: Polyethylene Glycol 3350 17 GM PACKET PO (05:04)
[2021-05-25] MEDS: Atorvastatin Calcium 10 MG Tablet 5 MG PO (05:05)
[2021-05-25] MEDS: APIXABAN 5 MG TABLET PO ×2 (05:06→17:12)
[2021-05-25] MEDS: Pantoprazole Sodium 20 MG Tablet PO (05:06)
[2021-05-25] MEDS: Nystatin Powder 15gm Bottle 1 APPLIC TOPICAL ×2 (05:07→20:07)
[2021-05-25 06:57] LABS: Absolute Neutrophil Count 3.7 X10^3/uL (2.0-7.7); Basophil# 0.03 X10^3/uL; Basophil% 0.6 % (0-1); Eosinophil# 0.12 X10^3/uL; Eosinophils% 2.3 % (0-5); Hematocrit 33.8 % (37-47); Hemoglobin 10.4 g/dL (12.0-15.0); Lymphocyte % 17.3 % (19-41); Mean Corp Hgb Conc 30.8 g/dL (32-36); Mean Corpuscular Hgb 31.8 pg (27.0-32.0); Mean Corpuscular Volume 103.4 fL (81-99); Mean Platelet Vol. 9.5 fl (6.2-12.0); Monocyte# 0.41 X10^3/uL; Monocyte% 7.9 % (0-10); NRBC Flagged by Analyzer 0 % (0-5); Neutrophil # 3.72 X10^3/uL (2.7-7.7); Neutrophil % 71.5 % (47-70); Platelet Count 331 K/mm3 (150-450); RBC Distribution Width CV 14.7 % (11.6-14.6); RBC Distribution Width SD 55.7 fl (35.1-43.9); Red Blood Count 3.27 M/mm3 (4.2-5.4); White Blood Count 5.2 K/mm3 (4.4-11.0)
[2021-05-25 07:30] VITALS: O2SAT 97
[2021-05-25 07:46] LABS: Anion Gap 6 (5-15); BUN 14 mg/dL (7-18); BUN/Creat Ratio 19.9 RATIO (10-20); Calcium,Total 8.5 mg/dL (8.5-10.1); Chloride 105 mmol/L (98-107); EST Glomerular Filtration Rate 84 mL/min (>60); Est Glom Filt Rate - Afr Amer 102 mL/min (>60); Estimated Creatinine Clearance 37.45 ml/min; Glucose 91 mg/dL (74-106); Potassium 4.3 mmol/L (3.5-5.1); Sodium Level 138 mmol/L (136-145)
--- NOTE | 2021-05-25 08:13 | NURSING ---
Addendum entered by Tuyet Carlisle 05/25/21 11:45: Upon recheck 94/46 HR 89, atif held Original Note: Atif held this am d/t low BP at 88/52. Pt denies any c/o dizziness or lightheadedness. Will continue to monitor.
[2021-05-25] MEDS: Multivitamins,Therapeutic Tablet 1 TABLET PO (08:33)
[2021-05-25] MEDS: Calcium Carb/Vitamin D 1 TABLET Tablet PO (08:33)
[2021-05-25] MEDS: Menthol/Lanolin/Calamine/Znox 113 GM Tube 1 APPLIC TOPICAL ×2 (08:33→20:07)
[2021-05-25 13:30] VITALS: BP 99/61; PULSE 95; RESP 18; TEMP 36.7; O2SAT 95
[2021-05-25] MEDS: Tuberculin,Purif.prot.deriv. 50 TU/ML Vial 0.1 ML ID (14:58)
[2021-05-25 20:01] VITALS: PULSE 107; RESP 18; O2SAT 96
[2021-05-26] MEDS: Levothyroxine 88 MCG Tablet PO (05:24)
[2021-05-26] MEDS: Atorvastatin Calcium 10 MG Tablet 5 MG PO (05:24)
[2021-05-26] MEDS: Pantoprazole Sodium 20 MG Tablet PO (05:24)
[2021-05-26] MEDS: APIXABAN 5 MG TABLET PO ×2 (05:25→17:35)
[2021-05-26] MEDS: Nystatin Powder 15gm Bottle 1 APPLIC TOPICAL ×2 (05:30→20:13)
[2021-05-26] MEDS: Menthol/Lanolin/Calamine/Znox 113 GM Tube 1 APPLIC TOPICAL ×2 (05:30→20:11)
[2021-05-26] MEDS: Acetaminophen 500 MG Tablet 1000 MG PO (05:31)
[2021-05-26 05:33] VITALS: BP 90/51; PULSE 87
[2021-05-26 06:45] VITALS: O2SAT 96
[2021-05-26] MEDS: Calcium Carb/Vitamin D 1 TABLET Tablet PO (08:04)
[2021-05-26] MEDS: Multivitamins,Therapeutic Tablet 1 TABLET PO (08:04)
[2021-05-26 08:06] VITALS: BP 100/53; PULSE 98
[2021-05-26 10:00] VITALS: PULSE 89; RESP 20; O2SAT 97
[2021-05-26 14:19] VITALS: BP 94/60; PULSE 94; RESP 16; TEMP 36; O2SAT 95
[2021-05-27] MEDS: Atorvastatin Calcium 10 MG Tablet 5 MG PO (05:05)
[2021-05-27] MEDS: Senna/Docusate Sodium 1 Tablet PO (05:05)
[2021-05-27] MEDS: APIXABAN 5 MG TABLET PO ×2 (05:05→17:39)
[2021-05-27] MEDS: Levothyroxine 88 MCG Tablet PO (05:05)
[2021-05-27] MEDS: Polyethylene Glycol 3350 17 GM PACKET PO (05:05)
[2021-05-27] MEDS: Pantoprazole Sodium 20 MG Tablet PO (05:05)
[2021-05-27] MEDS: NIFEdipine 30 MG Tablet PO (05:06)
[2021-05-27] MEDS: Atenolol 25 MG Tablet PO (05:06)
[2021-05-27] MEDS: Menthol/Lanolin/Calamine/Znox 113 GM Tube 1 APPLIC TOPICAL ×2 (05:14→20:31)
[2021-05-27] MEDS: Nystatin Powder 15gm Bottle 1 APPLIC TOPICAL ×2 (05:15→20:31)
[2021-05-27] MEDS: Multivitamins,Therapeutic Tablet 1 TABLET PO (08:11)
[2021-05-27] MEDS: Calcium Carb/Vitamin D 1 TABLET Tablet PO (08:11)
[2021-05-27 10:00] VITALS: PULSE 85; RESP 18; O2SAT 94
--- NOTE | 2021-05-27 14:03 | NURSING ---
Pt had hair cut today $30 taken from lock box per pt request to pay for her hair service
[2021-05-27 17:09] VITALS: BP 98/64; PULSE 92; RESP 18; TEMP 36.1; O2SAT 96
[2021-05-28 05:57] VITALS: BP 89/44; PULSE 80
[2021-05-28] MEDS: Levothyroxine 88 MCG Tablet PO (05:58)
[2021-05-28] MEDS: Pantoprazole Sodium 20 MG Tablet PO (05:59)
[2021-05-28] MEDS: APIXABAN 5 MG TABLET PO ×2 (05:59→17:50)
[2021-05-28] MEDS: Atorvastatin Calcium 10 MG Tablet 5 MG PO (05:59)
[2021-05-28] MEDS: Nystatin Powder 15gm Bottle 1 APPLIC TOPICAL ×2 (06:00→21:43)
[2021-05-28] MEDS: Menthol/Lanolin/Calamine/Znox 113 GM Tube 1 APPLIC TOPICAL ×2 (06:00→21:42)
[2021-05-28] MEDS: Calcium Carb/Vitamin D 1 TABLET Tablet PO (07:52)
[2021-05-28] MEDS: Multivitamins,Therapeutic Tablet 1 TABLET PO (07:52)
[2021-05-28] MEDS: Acetaminophen 500 MG Tablet 1000 MG PO (13:29)
[2021-05-28 16:00] VITALS: BP 109/53; PULSE 85; RESP 18; TEMP 36.4; O2SAT 98
[2021-05-28 17:28] VITALS: O2SAT 98
[2021-05-28 21:46] VITALS: PULSE 96; RESP 16; O2SAT 93
[2021-05-29 05:32] VITALS: BP 103/44; PULSE 93
[2021-05-29] MEDS: Menthol/Lanolin/Calamine/Znox 113 GM Tube 1 APPLIC TOPICAL ×2 (05:34→20:23)
[2021-05-29] MEDS: Atorvastatin Calcium 10 MG Tablet 5 MG PO (05:34)
[2021-05-29] MEDS: APIXABAN 5 MG TABLET PO ×2 (05:34→17:22)
[2021-05-29] MEDS: Pantoprazole Sodium 20 MG Tablet PO (05:35)
[2021-05-29] MEDS: Nystatin Powder 15gm Bottle 1 APPLIC TOPICAL ×2 (05:35→20:24)
[2021-05-29] MEDS: Levothyroxine 88 MCG Tablet PO (05:35)
[2021-05-29] MEDS: Calcium Carb/Vitamin D 1 TABLET Tablet PO (08:38)
[2021-05-29] MEDS: Multivitamins,Therapeutic Tablet 1 TABLET PO (08:38)
[2021-05-29 15:23] VITALS: BP 115/58; PULSE 67; RESP 18; TEMP 36.2; O2SAT 95
[2021-05-29] MEDS: Senna/Docusate Sodium 1 Tablet PO (17:22)
[2021-05-29 23:31] VITALS: PULSE 109; O2SAT 99
[2021-05-30] MEDS: APIXABAN 5 MG TABLET PO ×2 (04:22→17:30)
[2021-05-30] MEDS: Atorvastatin Calcium 10 MG Tablet 5 MG PO (04:22)
[2021-05-30] MEDS: Senna/Docusate Sodium 1 Tablet PO (04:23)
[2021-05-30] MEDS: Pantoprazole Sodium 20 MG Tablet PO (04:23)
[2021-05-30] MEDS: Levothyroxine 88 MCG Tablet PO (04:23)
[2021-05-30] MEDS: Nystatin Powder 15gm Bottle 1 APPLIC TOPICAL ×2 (04:24→20:22)
[2021-05-30] MEDS: Menthol/Lanolin/Calamine/Znox 113 GM Tube 1 APPLIC TOPICAL ×2 (04:25→20:22)
[2021-05-30] MEDS: Calcium Carb/Vitamin D 1 TABLET Tablet PO (08:06)
[2021-05-30] MEDS: Multivitamins,Therapeutic Tablet 1 TABLET PO (08:06)
--- NOTE | 2021-05-30 08:31 | MDS.RN ---
Information for the mds was obtained from review of the clinical record, interview of resident, staff, and direct observation of resident's care.
[2021-05-30 14:09] VITALS: PULSE 98; O2SAT 96
[2021-05-30 14:57] VITALS: BP 108/57; PULSE 93; RESP 18; TEMP 36.6; O2SAT 99
[2021-05-31] MEDS: Atorvastatin Calcium 10 MG Tablet 5 MG PO (05:27)
[2021-05-31] MEDS: APIXABAN 5 MG TABLET PO ×2 (05:27→17:16)
[2021-05-31] MEDS: Menthol/Lanolin/Calamine/Znox 113 GM Tube 1 APPLIC TOPICAL ×2 (05:28→20:57)
[2021-05-31] MEDS: Pantoprazole Sodium 20 MG Tablet PO (05:28)
[2021-05-31] MEDS: Nystatin Powder 15gm Bottle 1 APPLIC TOPICAL ×2 (05:28→20:57)
[2021-05-31] MEDS: Levothyroxine 88 MCG Tablet PO (05:28)
[2021-05-31 07:22] VITALS: O2SAT 97
[2021-05-31] MEDS: Acetaminophen 500 MG Tablet 1000 MG PO (07:58)
[2021-05-31] MEDS: Calcium Carb/Vitamin D 1 TABLET Tablet PO (08:00)
[2021-05-31] MEDS: Multivitamins,Therapeutic Tablet 1 TABLET PO (08:00)
[2021-05-31 16:00] VITALS: BP 94/64; PULSE 93; RESP 36; TEMP 36.3; O2SAT 93
[2021-05-31 17:55] VITALS: PULSE 92; RESP 18; O2SAT 96
[2021-06-01] MEDS: Acetaminophen 500 MG Tablet 1000 MG PO (00:28)
[2021-06-01] MEDS: Pantoprazole Sodium 20 MG Tablet PO (05:01)
[2021-06-01] MEDS: Menthol/Lanolin/Calamine/Znox 113 GM Tube 1 APPLIC TOPICAL ×2 (05:01→19:46)
[2021-06-01] MEDS: Atorvastatin Calcium 10 MG Tablet 5 MG PO (05:01)
[2021-06-01] MEDS: APIXABAN 5 MG TABLET PO ×2 (05:02→17:25)
[2021-06-01] MEDS: Nystatin Powder 15gm Bottle 1 APPLIC TOPICAL ×2 (05:03→19:46)
[2021-06-01 07:46] LABS: Absolute Neutrophil Count 2.1 X10^3/uL (2.0-7.7); Basophil# 0.03 X10^3/uL; Basophil% 0.9 % (0-1); Eosinophil# 0.12 X10^3/uL; Eosinophils% 3.7 % (0-5); Hematocrit 33.1 % (37-47); Lymphocyte % 21.6 % (19-41); Mean Corp Hgb Conc 30.2 g/dL (32-36); Mean Corpuscular Hgb 31.5 pg (27.0-32.0); Mean Corpuscular Volume 104.4 fL (81-99); Mean Platelet Vol. 9.7 fl (6.2-12.0); Monocyte# 0.23 X10^3/uL; Monocyte% 7.1 % (0-10); NRBC Flagged by Analyzer 0 % (0-5); Neutrophil # 2.14 X10^3/uL (2.7-7.7); Neutrophil % 66.1 % (47-70); Platelet Count 236 K/mm3 (150-450); RBC Distribution Width CV 15.1 % (11.6-14.6); RBC Distribution Width SD 58.2 fl (35.1-43.9); Red Blood Count 3.17 M/mm3 (4.2-5.4); White Blood Count 3.2 K/mm3 (4.4-11.0)
[2021-06-01 08:05] LABS: Anion Gap 5 (5-15); BUN 7 mg/dL (7-18); BUN/Creat Ratio 10.6 RATIO (10-20); Calcium,Total 8.4 mg/dL (8.5-10.1); Chloride 109 mmol/L (98-107); Creatinine, Serum 0.66 mg/dL (0.55-1.02); EST Glomerular Filtration Rate 91 mL/min (>60); Est Glom Filt Rate - Afr Amer 110 mL/min (>60); Estimated Creatinine Clearance 37.45 ml/min; Glucose 94 mg/dL (74-106); Potassium 3.9 mmol/L (3.5-5.1); Sodium Level 142 mmol/L (136-145)
[2021-06-01] MEDS: Calcium Carb/Vitamin D 1 TABLET Tablet PO (08:59)
[2021-06-01] MEDS: Multivitamins,Therapeutic Tablet 1 TABLET PO (08:59)
[2021-06-01 11:11] VITALS: PULSE 89; RESP 18; O2SAT 99
[2021-06-01 16:00] VITALS: BP 125/65; PULSE 84; RESP 18; TEMP 36.1; O2SAT 98
[2021-06-01 16:50] VITALS: O2SAT 94
[2021-06-02] MEDS: Atorvastatin Calcium 10 MG Tablet 5 MG PO (04:33)
[2021-06-02] MEDS: Pantoprazole Sodium 20 MG Tablet PO (04:33)
[2021-06-02] MEDS: Levothyroxine 88 MCG Tablet PO (04:33)
[2021-06-02] MEDS: Menthol/Lanolin/Calamine/Znox 113 GM Tube 1 APPLIC TOPICAL ×2 (04:34→19:57)
[2021-06-02] MEDS: APIXABAN 5 MG TABLET PO ×2 (04:34→17:24)
[2021-06-02] MEDS: Nystatin Powder 15gm Bottle 1 APPLIC TOPICAL ×2 (04:35→19:56)
[2021-06-02] MEDS: Calcium Carb/Vitamin D 1 TABLET Tablet PO (08:11)
[2021-06-02] MEDS: Multivitamins,Therapeutic Tablet 1 TABLET PO (08:11)
--- NOTE | 2021-06-02 10:36 | PT ---
Left message for pt's dtr Deisy to set up family training this week for pt.
--- NOTE | 2021-06-02 13:45 | PT ---
Spoke with pt's dtr Deisy. Set up family training for , 06/05/21 at 11:15 am. Pt's dtr stated pt has a relative at home, Kita, who pt was caring for prior to being admitted into the hospital. Pt's dtr voicing concerns about pt returning home and then continuing to provide care for this relative. I agree with pt's dtr that pt would benefit from further therapy and pt is not able to return home at this time and assist this relative as pt needs assistance herself. Pt's dtr in agreement.
[2021-06-02 14:06] VITALS: BP 114/64; PULSE 100; RESP 16; TEMP 36.4; O2SAT 98
[2021-06-02] MEDS: Senna/Docusate Sodium 1 Tablet PO (17:24)
[2021-06-02 22:08] VITALS: PULSE 99; RESP 18; O2SAT 97
[2021-06-03] MEDS: Polyethylene Glycol 3350 17 GM PACKET PO (04:51)
[2021-06-03] MEDS: APIXABAN 5 MG TABLET PO ×2 (04:51→18:00)
[2021-06-03] MEDS: Atorvastatin Calcium 10 MG Tablet 5 MG PO (04:51)
[2021-06-03] MEDS: Nystatin Powder 15gm Bottle 1 APPLIC TOPICAL ×2 (04:52→21:00)
[2021-06-03] MEDS: Senna/Docusate Sodium 1 Tablet PO (04:52)
[2021-06-03] MEDS: Levothyroxine 88 MCG Tablet PO (04:52)
[2021-06-03] MEDS: Pantoprazole Sodium 20 MG Tablet PO (04:52)
[2021-06-03] MEDS: Menthol/Lanolin/Calamine/Znox 113 GM Tube 1 APPLIC TOPICAL ×2 (04:53→21:01)
[2021-06-03] MEDS: Multivitamins,Therapeutic Tablet 1 TABLET PO (07:55)
[2021-06-03] MEDS: Calcium Carb/Vitamin D 1 TABLET Tablet PO (07:55)
[2021-06-03 11:33] VITALS: PULSE 80; O2SAT 96
[2021-06-03 15:03] VITALS: BP 111/63; PULSE 99; RESP 32; TEMP 36.4; O2SAT 97
[2021-06-03] MEDS: Acetaminophen 500 MG Tablet 1000 MG PO (23:39)
[2021-06-04] MEDS: Levothyroxine 88 MCG Tablet PO (05:09)
[2021-06-04] MEDS: Pantoprazole Sodium 20 MG Tablet PO (05:09)
[2021-06-04] MEDS: Nystatin Powder 15gm Bottle 1 APPLIC TOPICAL ×2 (05:09→19:55)
[2021-06-04] MEDS: Menthol/Lanolin/Calamine/Znox 113 GM Tube 1 APPLIC TOPICAL ×2 (05:10→19:56)
[2021-06-04] MEDS: APIXABAN 5 MG TABLET PO ×2 (05:11→17:42)
[2021-06-04] MEDS: Atorvastatin Calcium 10 MG Tablet 5 MG PO (05:11)
[2021-06-04 05:23] VITALS: BP 111/53; PULSE 93; RESP 18; TEMP 36.3; O2SAT 91
[2021-06-04] MEDS: Calcium Carb/Vitamin D 1 TABLET Tablet PO (08:32)
[2021-06-04] MEDS: Multivitamins,Therapeutic Tablet 1 TABLET PO (08:32)
[2021-06-04 14:09] VITALS: BP 97/53; PULSE 70; RESP 22; TEMP 36.4; O2SAT 94
[2021-06-04 19:57] VITALS: PULSE 96; RESP 18; O2SAT 97
[2021-06-05] MEDS: Levothyroxine 88 MCG Tablet PO (05:34)
[2021-06-05] MEDS: Pantoprazole Sodium 20 MG Tablet PO (05:35)
[2021-06-05] MEDS: Atorvastatin Calcium 10 MG Tablet 5 MG PO (05:35)
[2021-06-05] MEDS: APIXABAN 5 MG TABLET PO ×2 (05:36→17:01)
[2021-06-05] MEDS: Nystatin Powder 15gm Bottle 1 APPLIC TOPICAL ×2 (05:36→20:50)
[2021-06-05] MEDS: Menthol/Lanolin/Calamine/Znox 113 GM Tube 1 APPLIC TOPICAL ×2 (05:36→20:51)
[2021-06-05] MEDS: Calcium Carb/Vitamin D 1 TABLET Tablet PO (08:05)
[2021-06-05] MEDS: Multivitamins,Therapeutic Tablet 1 TABLET PO (08:05)
[2021-06-05 14:11] VITALS: PULSE 111; RESP 20; O2SAT 92
[2021-06-05 14:45] VITALS: BP 115/62; PULSE 93; RESP 20; TEMP 36.9; O2SAT 96
--- NOTE | 2021-06-05 15:56 | CASEMGMT ---
Social Work Spoke with pt and requested to DC home 06/14. IDT agreeable. Pt requesting [facility] PT/OT/SN. New O2. Ref[place] [facility] [place] [facility] [place] other D[place] needs. Dtr to transport Plan: DC home 06/14, [facility] PT/OT/SN LOUISA CrW
--- NOTE | 2021-06-05 19:36 | DS.PCM_ITS ---
Providers Date of Admission: 05/17/21 Primary Care Physician: Dr. Carl Roberts MD Reason For Visit: COVID, RESPIRATORY FAILURE Diagnosis Discharge Diagnosis (1) Debility: Status: Acute Code(s): R53.81 - Other malaise (2) Pneumonia due to severe acute respiratory syndrome coronavirus 2 (SARS-CoV-2): Status: Acute Code(s): U07.1 - COVID-19; J12.82 - Pneumonia due to coronavirus disease 2019 (3) Acute respiratory failure with hypoxia: Status: Resolved Code(s): J96.01 - Acute respiratory failure with hypoxia (4) Pulmonary embolism: Status: Acute Code(s): I26.99 - Other pulmonary embolism without acute cor pulmonale Qualifiers: Pulmonary embolism type: other Chronicity: acute Acute cor pulmonale presence: without acute cor pulmonale Qualified Code(s): I26.99 - Other pulmonary embolism without acute cor pulmonale (5) Hypertension: Status: Chronic Code(s): I10 - Essential (primary) hypertension (6) Osteoarthritis: Status: Acute Code(s): M19.90 - Unspecified osteoarthritis, unspecified site (7) Hypothyroidism: Status: Acute Code(s): E03.9 - Hypothyroidism, unspecified (8) Hyperlipidemia: Status: Acute Code(s): E78.5 - Hyperlipidemia, unspecified (9) Gastroesophageal reflux disease: Status: Acute Code(s): K21.9 - Gastro-esophageal reflux disease without esophagitis Medications at Discharge Home Medications calcium carbonate-vitamin D3 [Calcium 500 + D] 1 tab PO DAILY 05/09/21 levothyroxine 88 mcg PO MOTUWETHFRSA 05/09/21 lovastatin 20 mg PO DAILY 05/09/21 multivitamin 1 tab PO DAILY 05/09/21 omeprazole 20 mg PO DAILY 05/09/21 apixaban [Eliquis] 5 mg PO BID 30 Days #60 tab 06/05/21 Hospital Course Operations None Procedures None Summary of Care Provided Minutes Spent on Discharge: 35 Hospital Course: 81 year old female with below past medical history hospitalized for acute respiratory failure with hypoxia secondary to covid19, complicated by pulmonary embolism, admitted to TCU with debility, here for rehabilitation, strengthening, prior to discharge home with family. Discharge home with family 06/14/2021, [facility] PT/OT/SN. Eliquis recommended thru 11/07/2021 for treatment of pulmonary embolism. Physical Exam Const alert and oriented x3 General Appearance: cooperative HEENT normocephalic Eyes PERRL and EOMs intact bilaterally Neck supple, no JVD and no carotid bruits Resp normal respiratory effort, normal air movement and clear to auscultation bi laterally Cardio regular rate and regular rhythm GI normal to inspection, nondistended, normoactive bowel sounds, non-tender and non-distended Extremity normal capillary refill General Extremity: Negative for edema Skin no rashes or lesions noted General Skin Exam: no breakdown Psych affect normal Appearance: appropriate Weight / BMI Weight Weight: 74.134 kg Body Mass Index (BMI) 26.6 ABG / Lab / Microbiology Data Result Diagrams: 06/01/21 07:30 06/01/21 07:30 D/C Instructions Discharge Diet: No restrictions Discharge Activity: Return to Normal Activity, May Shower and Use Walker Weight Bearing Status: Weight bearing as tolerated Call your doctor if you observe: Fever of 101 or Higher, Inability to urinate, Inability to have a bowel movement, Shortness of breath, Dizziness, Fainting spells, Swelling in the ankles, Chest pain and Uncontrolled pain Additional Instructions: Discharge home with family 06/14/2021, [facility] PT/OT/SN. Anisaquderek recommended thru 11/07/2021 for treatment of pulmonary embolism. Please Follow Up With: Carl Roberts MD When: 1 week. Meaningful Use Info Meaningful Use Diagnoses (Choose all that apply): VTE VTE Anticoag overlap given w/in hospital stay or rx'd at ri?: No Pt receive overlap for 5 days?: No Reason overlap not ordered, prescribed, or given for 5 days: Treatment Not Indicated Discharge Plan Admission Admit Date/Time: 05/17/21 16:29 Primary Reason for Your Visit: Debility. Attending Provider: Dedrick Styles Chi Primary Care Provider: Carl Roberts Instructions Additional Instructions / Restrictions: Discharge home with family 06/14/2021, [facility] PT/OT/SN. Eliquis recommended thru 11/07/2021 for treatment of pulmonary embolism. Discharge Orders/Prescriptions Prescriptions: New Eliquis 5 mg Tablet 5 mg PO BID 30 Days Qty: 60 RF: 0 Continued multivitamin Tablet 1 tab PO DAILY RF: 0 levothyroxine 88 mcg tablet 88 mcg PO MOTUWETHFRSA RF: 0 omeprazole 20 mg Capsule,Delayed Release(Dr/Ec) 20 mg PO DAILY RF: 0 lovastatin 20 mg tablet 20 mg PO DAILY RF: 0 calcium carbonate-vitamin D3 [Calcium 500 + D] 500 mg(1,250mg) -200 unit Tablet 1 tab PO DAILY RF: 0 Discontinued nifedipine 30 mg tablet extended release 24hr 30 mg PO DAILY RF: 0 atenolol 25 mg tablet 25 mg PO DAILY RF: 0 glucosamine HCl-vitamin D3 1,000-200 mg-unit Tablet 1 tab PO DAILY RF: 0 dexamethasone 4 mg tablet 6 mg PO DAILY RF: 0 Eliquis 5 mg tablet 10 mg PO BID RF: 0 Referrals / Follow Up: Carl Roberts MD [Primary Care Provider] - Disposition Disposition (needs filled in before D/C Order can be placed): Home Health Service
[2021-06-05] MEDS: Acetaminophen 500 MG Tablet 1000 MG PO (20:48)
[2021-06-06] MEDS: APIXABAN 5 MG TABLET PO ×2 (05:53→17:23)
[2021-06-06] MEDS: Atorvastatin Calcium 10 MG Tablet 5 MG PO (05:53)
[2021-06-06] MEDS: Levothyroxine 88 MCG Tablet PO (05:53)
[2021-06-06] MEDS: Pantoprazole Sodium 20 MG Tablet PO (05:53)
[2021-06-06] MEDS: Nystatin Powder 15gm Bottle 1 APPLIC TOPICAL ×2 (06:03→20:15)
[2021-06-06] MEDS: Menthol/Lanolin/Calamine/Znox 113 GM Tube 1 APPLIC TOPICAL ×2 (06:03→20:15)
[2021-06-06] MEDS: Calcium Carb/Vitamin D 1 TABLET Tablet PO (07:55)
[2021-06-06] MEDS: Multivitamins,Therapeutic Tablet 1 TABLET PO (07:55)
[2021-06-06 13:42] VITALS: BP 135/68; PULSE 94; RESP 19; TEMP 36.3; O2SAT 98
[2021-06-06] MEDS: Acetaminophen 500 MG Tablet 1000 MG PO (20:13)
[2021-06-06 20:18] VITALS: PULSE 103; O2SAT 98
[2021-06-07] MEDS: Menthol/Lanolin/Calamine/Znox 113 GM Tube 1 APPLIC TOPICAL ×2 (05:09→20:20)
[2021-06-07] MEDS: APIXABAN 5 MG TABLET PO ×2 (05:10→17:30)
[2021-06-07] MEDS: Atorvastatin Calcium 10 MG Tablet 5 MG PO (05:10)
[2021-06-07] MEDS: Pantoprazole Sodium 20 MG Tablet PO (05:11)
[2021-06-07] MEDS: Nystatin Powder 15gm Bottle 1 APPLIC TOPICAL ×2 (05:11→20:20)
[2021-06-07] MEDS: Levothyroxine 88 MCG Tablet PO (05:12)
[2021-06-07 07:45] VITALS: O2SAT 95
[2021-06-07] MEDS: Calcium Carb/Vitamin D 1 TABLET Tablet PO (09:02)
[2021-06-07] MEDS: Multivitamins,Therapeutic Tablet 1 TABLET PO (09:02)
[2021-06-07 12:47] VITALS: PULSE 102; O2SAT 94
[2021-06-07 13:50] VITALS: BP 107/63; PULSE 96; RESP 18; TEMP 36.5; O2SAT 94
[2021-06-07] MEDS: Acetaminophen 500 MG Tablet 1000 MG PO (20:19)
[2021-06-08] MEDS: APIXABAN 5 MG TABLET PO ×2 (05:35→17:49)
[2021-06-08] MEDS: Menthol/Lanolin/Calamine/Znox 113 GM Tube 1 APPLIC TOPICAL ×2 (05:35→22:27)
[2021-06-08] MEDS: Atorvastatin Calcium 10 MG Tablet 5 MG PO (05:35)
[2021-06-08] MEDS: Nystatin Powder 15gm Bottle 1 APPLIC TOPICAL ×2 (05:36→22:27)
[2021-06-08] MEDS: Pantoprazole Sodium 20 MG Tablet PO (05:36)
[2021-06-08 06:38] LABS: Absolute Lymphocyte Count 1.17 X10^3/uL (0.83-4.51); Absolute Neutrophil Count 1.9 X10^3/uL (2.0-7.7); Basophil# 0.07 X10^3/uL; Basophil% 1.9 % (0-1); Eosinophil# 0.13 X10^3/uL; Eosinophils% 3.6 % (0-5); Hematocrit 35.2 % (37-47); Hemoglobin 10.7 g/dL (12.0-15.0); Lymphocyte # 1.17 X10^3/ul (0.83-4.51); Lymphocyte % 32.3 % (19-41); Mean Corp Hgb Conc 30.4 g/dL (32-36); Mean Corpuscular Hgb 31.8 pg (27.0-32.0); Mean Corpuscular Volume 104.5 fL (81-99); Mean Platelet Vol. 9.6 fl (6.2-12.0); Monocyte# 0.31 X10^3/uL; Monocyte% 8.6 % (0-10); NRBC Flagged by Analyzer 0 % (0-5); Neutrophil # 1.92 X10^3/uL (2.7-7.7); Platelet Count 293 K/mm3 (150-450); RBC Distribution Width CV 15.9 % (11.6-14.6); RBC Distribution Width SD 60.5 fl (35.1-43.9); Red Blood Count 3.37 M/mm3 (4.2-5.4); White Blood Count 3.6 K/mm3 (4.4-11.0)
[2021-06-08 07:17] LABS: Anion Gap 5 (5-15); BUN 6 mg/dL (7-18); BUN/Creat Ratio 9.8 RATIO (10-20); Calcium,Total 8.6 mg/dL (8.5-10.1); Chloride 106 mmol/L (98-107); Creatinine, Serum 0.61 mg/dL (0.55-1.02); EST Glomerular Filtration Rate 100 mL/min (>60); Est Glom Filt Rate - Afr Amer 121 mL/min (>60); Estimated Creatinine Clearance 37.45 ml/min; Glucose 84 mg/dL (74-106); Sodium Level 139 mmol/L (136-145)
[2021-06-08] MEDS: Multivitamins,Therapeutic Tablet 1 TABLET PO (08:37)
[2021-06-08] MEDS: Calcium Carb/Vitamin D 1 TABLET Tablet PO (08:37)
[2021-06-08 13:20] VITALS: BP 148/78; PULSE 108; RESP 18; TEMP 36.1; O2SAT 96
[2021-06-08 21:15] VITALS: PULSE 86; RESP 16; O2SAT 96
[2021-06-09] MEDS: Levothyroxine 88 MCG Tablet PO (05:07)
[2021-06-09] MEDS: APIXABAN 5 MG TABLET PO ×2 (05:07→17:15)
[2021-06-09] MEDS: Acetaminophen 500 MG Tablet 1000 MG PO ×2 (05:07→21:59)
[2021-06-09] MEDS: Nystatin Powder 15gm Bottle 1 APPLIC TOPICAL ×2 (05:08→22:01)
[2021-06-09] MEDS: Pantoprazole Sodium 20 MG Tablet PO (05:08)
[2021-06-09] MEDS: Menthol/Lanolin/Calamine/Znox 113 GM Tube 1 APPLIC TOPICAL ×2 (05:08→22:01)
[2021-06-09] MEDS: Atorvastatin Calcium 10 MG Tablet 5 MG PO (05:08)
[2021-06-09 07:19] VITALS: O2SAT 94
[2021-06-09] MEDS: Multivitamins,Therapeutic Tablet 1 TABLET PO (08:07)
[2021-06-09] MEDS: Calcium Carb/Vitamin D 1 TABLET Tablet PO (08:07)
[2021-06-09 10:00] VITALS: PULSE 85; RESP 18; O2SAT 98
--- NOTE | 2021-06-09 14:18 | NURSING ---
Daughter, Deisy, notified of current COVID status on the unit.
[2021-06-09 16:00] VITALS: BP 124/65; PULSE 105; RESP 22; TEMP 36.1; O2SAT 91
[2021-06-10 05:36] VITALS: BP 110/60; PULSE 76; RESP 20; TEMP 36.2; O2SAT 9
[2021-06-10] MEDS: Nystatin Powder 15gm Bottle 1 APPLIC TOPICAL ×2 (05:38→21:52)
[2021-06-10] MEDS: Atorvastatin Calcium 10 MG Tablet 5 MG PO (05:38)
[2021-06-10] MEDS: Menthol/Lanolin/Calamine/Znox 113 GM Tube 1 APPLIC TOPICAL ×2 (05:38→21:53)
[2021-06-10] MEDS: Pantoprazole Sodium 20 MG Tablet PO (05:39)
[2021-06-10] MEDS: APIXABAN 5 MG TABLET PO ×2 (05:39→17:32)
[2021-06-10] MEDS: Levothyroxine 88 MCG Tablet PO (05:39)
--- NOTE | 2021-06-10 06:45 | NURSING ---
This nurse witnessed patient making an unassisted transfer using rollator walker. Gait unsteady and then holds onto OBT to return to recliner chair. Pt instructed she needs to call for staff assist for all transfers as therapy has not granted ad piotr status. Pt becomes irritable and verbalizes when she needs to go to the bathroom, she does not want to wait.
[2021-06-10 07:45] VITALS: O2SAT 96
[2021-06-10] MEDS: Multivitamins,Therapeutic Tablet 1 TABLET PO (07:53)
[2021-06-10] MEDS: Calcium Carb/Vitamin D 1 TABLET Tablet PO (07:53)
--- NOTE | 2021-06-10 07:55 | NURSING ---
PT VERY UPSET THIS MORNING. JUST FOUND OUT A FAMILY MEMBER THIS MORNING. SOME 1 ON GIVEN AND TOLD PT IF SHE NEEDS ANY THING EVEN JUST TO TALK TO CALL. PT VERY THANKFUL.
[2021-06-10 14:28] VITALS: BP 122/59; PULSE 91; RESP 18; TEMP 36.4; O2SAT 97
--- NOTE | 2021-06-10 15:18 | CASEMGMT ---
Social Work Several attempts to visit pt today, unavailable. Will continue to attempt to provide support from recent . Noted to have family visiting pt today. Carolin Arnold, FERRY CAPTAIN OVER THE HORIZON TARGETING SUPERVISOR
[2021-06-10 22:00] VITALS: PULSE 78; RESP 16; O2SAT 96
[2021-06-11 05:42] VITALS: BP 120/66; PULSE 85
[2021-06-11] MEDS: Atorvastatin Calcium 10 MG Tablet 5 MG PO (05:47)
[2021-06-11] MEDS: Pantoprazole Sodium 20 MG Tablet PO (05:47)
[2021-06-11] MEDS: Levothyroxine 88 MCG Tablet PO (05:47)
[2021-06-11] MEDS: APIXABAN 5 MG TABLET PO ×2 (05:47→17:08)
[2021-06-11] MEDS: Menthol/Lanolin/Calamine/Znox 113 GM Tube 1 APPLIC TOPICAL ×2 (05:48→20:48)
[2021-06-11] MEDS: Nystatin Powder 15gm Bottle 1 APPLIC TOPICAL ×2 (05:48→20:49)
[2021-06-11] MEDS: Multivitamins,Therapeutic Tablet 1 TABLET PO (07:47)
[2021-06-11] MEDS: Calcium Carb/Vitamin D 1 TABLET Tablet PO (07:47)
[2021-06-11 10:00] VITALS: O2SAT 86; O2SAT 93; O2SAT 98
[2021-06-11 11:30] VITALS: O2SAT 96
[2021-06-11 13:24] VITALS: BP 129/55; PULSE 91; RESP 20; TEMP 36.1; O2SAT 92
[2021-06-11] MEDS: Acetaminophen 500 MG Tablet 1000 MG PO (20:49)
[2021-06-11 21:36] VITALS: PULSE 83; RESP 12; O2SAT 98
[2021-06-12] MEDS: Menthol/Lanolin/Calamine/Znox 113 GM Tube 1 APPLIC TOPICAL ×2 (05:51→20:49)
[2021-06-12] MEDS: Atorvastatin Calcium 10 MG Tablet 5 MG PO (05:52)
[2021-06-12] MEDS: Levothyroxine 88 MCG Tablet PO (05:52)
[2021-06-12] MEDS: Nystatin Powder 15gm Bottle 1 APPLIC TOPICAL ×2 (05:52→20:50)
[2021-06-12] MEDS: Pantoprazole Sodium 20 MG Tablet PO (05:53)
[2021-06-12] MEDS: APIXABAN 5 MG TABLET PO ×2 (05:53→17:06)
[2021-06-12 07:00] VITALS: O2SAT 96
[2021-06-12] MEDS: Calcium Carb/Vitamin D 1 TABLET Tablet PO (07:51)
[2021-06-12] MEDS: Multivitamins,Therapeutic Tablet 1 TABLET PO (07:51)
--- NOTE | 2021-06-12 10:30 | CASEMGMT ---
Social Work Met with patient to complete BIMS and PHQ-9 completed for MDS assessment. Discussed recent family deaths. Provided supportive listening. Pt reports she is doing well, her family has visited, and no issues. Pt is looking forward to going home. Offered continued support if needed. Pt appreciative. Carolin Arnold, MANAGER SUPPORT DIGITAL PRESS OPERATOR
[2021-06-12 16:21] VITALS: BP 138/72; PULSE 89; RESP 22; TEMP 36.9; O2SAT 98
[2021-06-12 20:53] VITALS: PULSE 87; RESP 12; O2SAT 97
[2021-06-13] MEDS: Acetaminophen 500 MG Tablet 1000 MG PO (05:12)
[2021-06-13] MEDS: Atorvastatin Calcium 10 MG Tablet 5 MG PO (05:14)
[2021-06-13] MEDS: APIXABAN 5 MG TABLET PO ×2 (05:14→17:08)
[2021-06-13] MEDS: Pantoprazole Sodium 20 MG Tablet PO (05:14)
[2021-06-13] MEDS: Levothyroxine 88 MCG Tablet PO (05:14)
[2021-06-13] MEDS: Menthol/Lanolin/Calamine/Znox 113 GM Tube 1 APPLIC TOPICAL ×2 (05:15→21:58)
[2021-06-13] MEDS: Nystatin Powder 15gm Bottle 1 APPLIC TOPICAL ×2 (05:15→22:00)
[2021-06-13] MEDS: Multivitamins,Therapeutic Tablet 1 TABLET PO (08:05)
[2021-06-13] MEDS: Calcium Carb/Vitamin D 1 TABLET Tablet PO (08:06)
--- NOTE | 2021-06-13 14:04 | MDS.RN ---
Pain interview for DEBRA 06/14/21 completed.
[2021-06-13 15:27] VITALS: BP 153/81; PULSE 88; RESP 20; TEMP 36.1; O2SAT 99
--- NOTE | 2021-06-13 19:24 | NURSING ---
Family concerned cost of eliquis is $500 for month supply. Family asked Dr. Styles to change medication. DR Styles notified, said no to changing medication. Dr. Styles informed nurse to have patient order a week supply and follow up with PCP.
[2021-06-14] MEDS: Atorvastatin Calcium 10 MG Tablet 5 MG PO (05:13)
[2021-06-14] MEDS: Levothyroxine 88 MCG Tablet PO (05:13)
[2021-06-14] MEDS: APIXABAN 5 MG TABLET PO (05:14)
[2021-06-14] MEDS: Pantoprazole Sodium 20 MG Tablet PO (05:14)
[2021-06-14] MEDS: Nystatin Powder 15gm Bottle 1 APPLIC TOPICAL (05:16)
[2021-06-14] MEDS: Menthol/Lanolin/Calamine/Znox 113 GM Tube 1 APPLIC TOPICAL (05:16)
[2021-06-14 07:42] VITALS: PULSE 80; O2SAT 96
[2021-06-14] MEDS: Multivitamins,Therapeutic Tablet 1 TABLET PO (07:50)
[2021-06-14] MEDS: Calcium Carb/Vitamin D 1 TABLET Tablet PO (07:50)
[2021-06-14 08:30] VITALS: O2SAT 94
== END 2021-06-14 11:30 | disposition home health service (06) | DRG 177 ==
PROVIDERS: Admitting Provider Family Medicine Geriatric Medicine; PCP Family Medicine; Visit Provider Family Medicine Geriatric Medicine
DX: U07.1 COVID-19 (principal); I26.99 Other pulmonary embolism without acute cor pulmonale; J12.82 Pneumonia due to coronavirus disease 2019; Z23 Encounter for immunization; K21.9 Gastro-esophageal reflux disease without esophagitis; B35.4 Tinea corporis; I10 Essential (primary) hypertension; E78.5 Hyperlipidemia, unspecified; M19.90 Unspecified osteoarthritis, unspecified site; E03.9 Hypothyroidism, unspecified; Z87.891 Personal history of nicotine dependence; Z79.01 Long term (current) use of anticoagulants; Z79.899 Other long term (current) drug therapy; Z79.890 Hormone replacement therapy
CPT/HCPCS: 36415; 80048; 85025; 92507; 92523; 92610; 97110; 97116; 97162; 97166; 97530; 97535; 97802; G0008; 90686

== ENCOUNTER 2021-06-19 17:32 | Emergency (ER) | payer MEDICARE, OTHER, SELFPAY ==
[2021-06-19 17:32] VITALS: BP 100/85; PULSE 88; RESP 16; TEMP 36.8; O2SAT 99; BMI 29.5
--- NOTE | 2021-06-19 18:08 | EDS_ITS ---
HPI History of Present Illness Chief Complaint: Edema Informant: patient and family Onset/Context/Timing Onset: Days Timing: Continuous Narrative Narrative: 81-year-old female recent hospitalization for several weeks for Covid. She had a pulmonary embolus is currently on Eliquis. She also history of hypertension cholesterol. Today was seen by home nursing who thought her legs are swollen patient is told me they are not swelling this is what her legs always look like her daughter verifies that. They sent her in to be evaluated. She states she is urinating. She denies any chest pain or shortness of breath. Prior similar symptoms: Yes Recent Illness/Hospitalization: Yes PFSH [facility] Medical History Former smoker GERD (gastroesophageal reflux disease) High cholesterol Hypertension Hypothyroidism Home Medications calcium carbonate-vitamin D3 [Calcium 500 + D] 1 tab PO DAILY 05/09/21 [History Last Taken 05/08/21] levothyroxine 88 mcg PO MOTUWETHFRSA 05/09/21 [History Last Taken Unknown] lovastatin 20 mg PO DAILY 05/09/21 [History Last Taken 05/09/21] multivitamin 1 tab PO DAILY 05/09/21 [History Last Taken 05/09/21] omeprazole 20 mg PO DAILY 05/09/21 [History Last Taken 05/09/21] apixaban [Eliquis] 5 mg PO BID 30 Days #60 tab 06/05/21 [Rx Last Taken Unknown] Allergy/AdvReac Type Severity Reaction Status Date / Time No Known Allergies Allergy Verified 06/19/21 17:34 Social History household members: children Smoking Status: Former smoker alcohol intake: never substance use type: does not use ROS ROS ED ROS Narrative Denies. Recently she was hospitalized for Covid though symptoms have resolved. Review of Systems ROS Unobtainable: Denies due to encephalopathy Constitutional Constitutional ED: Denies fever(s) Eyes Eyes: Denies change in vision ENT ENT ED: Denies ear pain Cardiovascular Cardiovascular: Denies chest pain Respiratory/Chest Respiratory/Chest: Denies dyspnea Gastrointestinal Gastrointestinal: Denies abdominal pain Genitourinary Genitourinary ED: Denies dysuria Musculoskeletal Musculoskeletal: Denies myalgias Integumentary Denies rash Neurologic Neurologic: Denies headache(s) Psychiatric Psychiatric: Denies depression Endocrine Endocrinology: Denies polyuria Allergic/Immunologic Allergic/Immunologic ED: Denies urticaria EXAM Physical Exam Narrative Exam Narrative: 79-year-old female no acute distress vital signs stable afebrile. On her home oxygen because she is on home oxygen for Covid her sats are 99%. H EENT exam unremarkable. Neck nontender no JVD. No lymphadenopathy. Lungs clear to auscultation bilaterally. Heart regular rate and rhythm no murmur rate about 85. Abdomen soft nontender. Patient moving all 4 extremiti es. Neurovascularly intact. Her calves are nontender. There is no edema. According to both the patient and her daughter these are her normal-appearing legs. Neurologically she is awake and alert. Const Vital Signs: 06/19/21 17:32 Temperature 98.3 F Temperature Source Temporal Pulse Rate 88 Respiratory Rate 16 Blood Pressure 100/85 H Blood Pressure Mean 90 Pulse Ox 99 Oxygen Delivery Method Nasal Cannula Oxygen Flow Rate (L/min) 5 Positive well nourished, well developed and obese; Negative for cachectic, contractures or unkempt General Appearance ED: well developed and NAD; Negative for unkempt, cachectic, contractures, cyanotic, diaphoretic or pallor Nutritional Appearance: obese; Negative for cachectic HEENT Reports moist mucous membranes Eyes PERRL and EOMs intact bilaterally General Eye ED: Negative for pale conjunctiva or scleral icterus Neck no lymphadenopathy, supple and no JVD General: Negative for tenderness Chest Wall inspection of chest normal and palpation of chest normal Resp normal respiratory effort and clear to auscultation bilaterally Effort and Inspection: Negative for pain with movement Auscultation: Negative for rales, rhonchi or wheezes Cardio regular rate, regular rhythm, S1 normal heart sound, S2 normal heart sound and no murmurs GI normal to inspection, nondistended, normoactive bowel sounds, non-tender, non- distended and no masses Auscultation: normoactive bowel sounds Palpation: soft; Negative for tender, guarding or rebound tenderness present Back/Spine no CVA tenderness General Back: Negative for CVA tenderness Cervical Spine: Negative for cervical spine tenderness Thoracic Spine / Upper Back: Negative for thoracic spinal tenderness Extremity normal to inspection General Extremety ED: Negative for edema or tenderness General Extremity: Negative for edema Neuro oriented x3 and No no sensory deficits noted Sensorium / Orientation: alert and orientation impaired; Negative for lethargic or stuporous Motor Exam: strength 5/5 throughout Psych mental status grossly normal Appearance: Negative for unkempt Mood & Affect: Negative for depressed Skin no rashes or lesions noted, no wounds and skin turgor normal General Skin Exam: Negative for elasticity normal, jaundice or pallor MDM MDM MDM Narrative Medical decision making narrative: 81-year-old female no acute distress. Exam is benign. Clinically looks well. Vital signs are unremarkable. I do not think she has DVTs in her legs even if she did she is already on Eliquis she needs no test. I discussed with her and her daughter and they are comfortable being discharged home. Discharge Plan Triage Chief Complaint: Edema ED Provider: Smith Ho Dx/Rx/DC Orders Clinical Impression: Encounter for medical assessment, COVID-19, Hx of pulmonary embolus Prescriptions: No Action multivitamin Tablet 1 tab PO DAILY RF: 0 levothyroxine 88 mcg tablet 88 mcg PO MOTUWETHFRSA RF: 0 omeprazole 20 mg Capsule,Delayed Release(Dr/Ec) 20 mg PO DAILY RF: 0 lovastatin 20 mg tablet 20 mg PO DAILY RF: 0 calcium carbonate-vitamin D3 [Calcium 500 + D] 500 mg(1,250mg) -200 unit Tablet 1 tab PO DAILY RF: 0 Eliquis 5 mg Tablet 5 mg PO BID 30 Days Qty: 60 RF: 0 Primary Care Provider: Carl Roberts Referrals: Carl Roberts MD [Primary Care Provider] - As Needed Activity Restrictions/Additional Instructions: Continue your current medications. Follow-up with your primary care physician as needed Disposition Disposition: Home, Self Care
== END 2021-06-19 18:26 | disposition home or self-care (01) ==
PROVIDERS: Emergency Provider Emergency Medicine; PCP Family Medicine
DX: U07.1 COVID-19 (principal); I10 Essential (primary) hypertension; K21.9 Gastro-esophageal reflux disease without esophagitis; E03.9 Hypothyroidism, unspecified; E78.00 Pure hypercholesterolemia, unspecified; Z79.899 Other long term (current) drug therapy; Z87.891 Personal history of nicotine dependence; Z86.711 Personal history of pulmonary embolism
CPT/HCPCS: 99281

== ENCOUNTER 2021-08-29 08:14 | Outpatient (CLI) | payer MEDICARE, SELFPAY ==
[2021-08-29 08:16] LABS: Mucous, Urine 0 SEEN /hpf (<or=2+); Red Blood Cells-Urine 0 SEEN /hpf (0-5); Squamous Epithelial Cells - UA 0 SEEN /hpf (5-10)
[2021-08-29 12:36] LABS: Glucose, Dipstick Normal (Normal); Ketone-Dipstick Negative (Negative); Leukocyte Esterase-Dipstick 500 /ul (Negative); Nitrite-Dipstick Positive (Negative); Occult Blood-Urine Negative /ul (Negative); Protein-Dipstick Negative (Negative); Urine Bilirubin Dipstick Negative (Negative); Urine Urobilinogen Normal (Normal); Urine pH 6.5 (5.0 - 8.0)
[2021-08-29 12:38] LABS: Color, Urine Yellow (Yellow); Urine Clarity Sl Cldy (Clear)
[2021-08-29 13:03] LABS: White Blood Cells 5-10 SEEN /hpf (0-5)
[2021-08-29 13:04] LABS: Bacteria 4+ /hpf (None Seen)
== END 2021-08-29 23:59 | disposition short-term general hospital (02) ==
LOC: LAB.FUTURE 08:14 → LABSPEC 08:14
PROVIDERS: PCP Family Medicine; Referring Provider Physician Assistant; Visit Provider Physician Assistant
DX: R41.82 Altered mental status, unspecified (principal); I10 Essential (primary) hypertension
CPT/HCPCS: 81001; 87077; 87086; 87088; 87186

== ENCOUNTER 2021-11-13 09:17 | Outpatient (CLI) | payer MEDICARE, SELFPAY ==
[2021-11-13 09:56] LABS: Red Blood Cells-Urine 0 SEEN /hpf (0-5)
[2021-11-13 12:08] LABS: Color, Urine Yellow (Yellow); Glucose, Dipstick Normal (Normal); Ketone-Dipstick Negative (Negative); Leukocyte Esterase-Dipstick 25 /ul (Negative); Nitrite-Dipstick Negative (Negative); Occult Blood-Urine Negative /ul (Negative); Protein-Dipstick 15 mg/dl (Negative); Specific Gravity, Urine 1.015 (1.002-1.030); Urine Bilirubin Dipstick Negative (Negative); Urine Clarity Cloudy (Clear); Urine Urobilinogen 1 mg/dl (Normal)
[2021-11-13 12:18] LABS: Bacteria 2+ /hpf (None Seen); Mucous, Urine RARE /hpf (<or=2+); Squamous Epithelial Cells - UA 0-5 SEEN /hpf (5-10); White Blood Cells 0-5 SEEN /hpf (0-5)
[2021-11-13 12:19] LABS: Amorphous Sediment 1+; Calcium Oxalate Crystals Ur 1+ /hpf (<or=2+)
== END 2021-11-13 23:59 | disposition home or self-care (01) ==
LOC: LABSPEC 09:30
PROVIDERS: PCP Family Medicine; Referring Provider Physician Assistant; Visit Provider Physician Assistant
DX: N39.0 Urinary tract infection, site not specified (principal); R41.0 Disorientation, unspecified
CPT/HCPCS: 81001; 87077; 87086; 87088

== ENCOUNTER 2023-01-12 10:20 | Emergency (ER) | payer MEDICARE, SELFPAY ==
[2023-01-12 10:22] VITALS: BP 146/83; PULSE 92; RESP 16; TEMP 36.4; O2SAT 100; BMI 31.1
--- NOTE | 2023-01-12 10:42 | RAD_ITS ---
STUDY: X-RAY - LUMBAR SPINE REASON FOR EXAM: Female, 82 years old. Low back pain following a fall. TECHNIQUE: 3 view(s) of the lumbar spine were obtained. COMPARISON: None FINDINGS: There is an exaggerated lumbar lordosis. There is no substantial scoliosis. Grade 1 anterior listhesis of L4 on L5 most likely secondary to the facet joint osteoarthritis. Normal vertebral bodies and endplates. There is multi-level degenerative disc disease with multi-level disc space narrowing. There is atherosclerotic calcification of the abdominal aorta without a demonstrated aneurysm. RAD/Lumbar Spine 2 or 3 Views IMPRESSION: Degenerative changes of the spine, as detailed above. Anterior listhesis of L4 on L5 most likely secondary to the facet joint osteoarthritis. Electronically Signed: Sixto Leija MD at 11:13 EDT ,
--- NOTE | 2023-01-12 11:03 | ED.VIS.BACK ---
HPI History of Present Illness Chief Complaint: Back Onset/Context/Timing Onset: Days (3) Context: Sudden Onset Injury: fall Timing: Continuous Quality: Sharp Location: Lumbar Worsened by: improves with Movement Relieved by: - (Certain positions) Associated Symptoms Associated Symptoms: Negative for Numbness, Tingling, Radiation to Right Leg, Radiation to Left Leg, Fever, Abdominal Pain, Dysuria, Unable to Ambulate, Unable to Transfer, Urinary Retention, Urinary Incontinence, Constipation or Fecal Incontinence Narrative Narrative: Patient presents with back pain that began after a fall 3 days ago. Patient states she slipped and fell and landed on her low back. Patient denies any head injury or loss of consciousness. Patient states her pain is mainly over her lower back. Patient states she has fallen before and injured her back in the past. Patient states it usually resolves after 3 days. Patient states that since her pain has been persistent after 3 days, she felt like there may be something else causing her pain. Patient went to urgent care and then was referred to the emergency department. Patient states her pain is sharp and constant. Patient states it is over the lower lumbar area. Patient states it is worse with movement. Patient states it is better with certain positions. Patient denies any radiation of the pain. Patient denies any bowel or bladder changes. Patient denies any saddle anesthesia. [facility] Medical History Former smoker GERD (gastroesophageal reflux disease) High cholesterol Hypertension Hypothyroidism Home Medications calcium carbonate 500 mg-vitamin D3 5 mcg (200 unit) tablet (Calcium 500 + D) 1 tab PO DAILY SUPPLEMETN 05/09/21 [History Last Taken 05/08/21] levothyroxine 88 mcg tablet 88 mcg PO MOTUWETHFRSA Thyroid 05/09/21 [History Last Taken Unknown] lovastatin 20 mg tablet 40 mg PO DAILY CHOLESTEROL 05/09/21 [History Last Taken 05/09/21] multivitamin 1 tab PO DAILY SUPPLEMENT 05/09/21 [History Last Taken 05/09/21] omeprazole 20 mg capsule,delayed release 20 mg PO DAILY GERD 05/09/21 [History Last Taken 05/09/21] hydrocodone-acetaminophen 5-325mg 5mg-325mg 1 tab PO Q6H PRN PRN Pain 3 days #10 TABLETS 01/12/23 [Rx Last Taken Unknown] nifedipine 30 mg tablet,extended release 24 hr 30 mg PO DAILY 01/12/23 [History Last Taken Unknown] Allergy/AdvReac Type Severity Reaction Status Date / Time No Known Allergies Allergy Verified 01/12/23 10:21 Surgical History no surgical history no surgical history Social History household members: children Smoking Status: Former smoker alcohol intake: never substance use type: does not use ROS ROS ED Constitutional Constitutional ED: Denies chills or fever(s) Eyes Eyes: Denies blurry vision or change in vision ENT ENT ED: Denies rhinorrhea or sore throat Cardiovascular Cardiovascular: Denies chest pain or palpitations Respiratory/Chest Respiratory/Chest: Denies cough or dyspnea Gastrointestinal Gastrointestinal: Denies nausea or vomiting Genitourinary Genitourinary ED: Denies dysuria or hematuria Musculoskeletal Musculoskeletal: Reports back pain and neck pain Integumentary Denies abscess or rash Neurologic Neurologic: Denies headache(s) or weakness Allergic/Immunologic Allergic/Immunologic ED: Denies mouth swelling or urticaria EXAM Physical Exam Const Vital Signs: 01/12/23 10:22 Temperature 97.6 F L Temperature Source Temporal Pulse Rate 92 Respiratory Rate 16 Blood Pressure 146/83 H Blood Pressure Mean 104 Pulse Ox 100 Oxygen Delivery Method Room Air Positive well nourished and well developed General Appearance ED: well developed HEENT Reports moist mucous membranes Neck supple and no JVD Resp normal respiratory effort and clear to auscultation bilaterally Cardio regular rate and regular rhythm GI normal to inspection, nondistended, normoactive bowel sounds and non-tender Palpation: soft Back/Spine Back/Spine Narrative: There is tenderness over the lumbar spine and left lumbar paraspinal muscles. There is no bony crepitance or step-off. Range of motion was somewhat limited in all motions of the lumbar spine secondary to pain. Strength is 5/5 bilaterally in the lower extremities. There are no sensory deficits noted. Lumbar Spine / Lower Back: ROM limited Extremity normal to inspection General Extremety ED: Negative for edema or tenderness General Extremity: Negative for edema Neuro oriented x3, CN's II-XII intact bilaterally and no sensory deficits noted Sensorium / Orientation: alert Motor Exam: strength 5/5 throughout Psych mental status grossly normal Skin no rashes or lesions noted MDM MDM MDM Narrative Medical decision making narrative: Differential diagnosis includes lumbosacral strain and compression fracture. X-rays of the lumbar spine will be obtained to assess for compression fracture and degenerative arthritis. Radiography X-Ray: LS SPine Diagnostic Testing: Clinical Impression(s) from Imaging Studies Lumbar Spine X-Ray 01/12/23 10:42 IMPRESSION: Degenerative changes of the spine, as detailed above. Anterior listhesis of L4 on L5 most likely secondary to the facet joint osteoarthritis. Electronically Signed: Sixto Leija MD at 11:13 EDT , X-rays of the lumbar spine were obtained. There are 3 views. On my independent interpretation, there are degenerative changes noted. There is anterolisthesis of L4 on L5 which is likely secondary to the degenerative changes. There is no compression fracture noted. Radiologist also interpreted the x-rays and agrees. Treatment and Re-Evaluation Narrative: Patient was given a dose of [place] here. Patient was advised of her findings. Patient was instructed to use ice to the area. Patient was given a prescription for a short course of [place]. Patient was instructed to follow-up with her primary care physician in 5 to 7 days. Patient understood and was agreeable with the plan. All questions were answered. Discharge Plan Triage Chief Complaint: Back ED Provider: Abdiel Shaikh Dx/Rx/DC Orders Clinical Impression: Acute lumbosacral myofascial strain, Fall Instructions: ED Back Sprain/Strain Prescriptions: New hydrocodone-acetaminophen [hydrocodone-acetaminophen] 5-325 mg tablet 1 tab PO Q6H PRN PRN (Reason: Pain) 3 Days Qty: 10 0RF No Action multivitamin Tablet 1 tab PO DAILY levothyroxine 88 mcg tablet 88 mcg PO MOTUWETHFRSA Label Comments: TAKE ONE TABLET BY MOUTH WEDNESDAY THROUGH WEDNESDAY AND NONE ON WEDNESDAY. omeprazole 20 mg Capsule,Delayed Release(Dr/Ec) 20 mg PO DAILY lovastatin 20 mg tablet 40 mg PO DAILY Label Comments: TAKE 1 TABLET BY MOUTH DAILY AT BEDTIME. FOR CHOLESTEROL. calcium carbonate-vitamin D3 [Calcium 500 + D] 500 mg(1,250mg) -200 unit Tablet 1 tab PO DAILY nifedipine 30 mg tablet extended release 24hr 30 mg PO DAILY Primary Care Provider: Carl Roberts Referrals: Carl Roberts MD [Primary Care Provider] - 5-7 Days Disposition Disposition: Home, Self Care Discharge Date/Time: 01/12/23 12:03
[2023-01-12] MEDS: HYDROcodone Bitartrate/Apap 5/325 Tablet PO (11:59)
== END 2023-01-12 12:03 | disposition home or self-care (01) ==
PROVIDERS: Emergency Provider Emergency Medicine; PCP Family Medicine; Visit Provider Emergency Medicine
DX: S39.012A Strain of muscle, fascia and tendon of lower back, initial encounter (principal); I10 Essential (primary) hypertension; E78.00 Pure hypercholesterolemia, unspecified; Z87.891 Personal history of nicotine dependence; W01.0XXA Fall on same level from slipping, tripping and stumbling without subsequent striking against object, initial encounter
CPT/HCPCS: 72100; 99283

== ENCOUNTER → 2023-03-02 | Outpatient (CLI) | payer MEDICARE, SELFPAY ==
--- NOTE | 2023-03-02 | BON_PTH ---
PATIENT: STEFANO WASHINGTON LOC: [facility] U#:[id number] AGE/SX: 82/F ROOM: RE03/02/[address]: Dr. Carl Hawkins DO : 1940 BED: DIS: 03/02/2023 SPEC #: [id number] RECD: 03/02/23 15:27 STATUS: LOLITA SARINA #: [id number] DORY: 03/02/23 00:[address]: Carl Hawkins DEPT: SURGICAL PATHOLOGY RECD BY: Usman Acosta ENTERED: 03/03/23 11:49 SP TYPE: Bone OTHR DR: Dr. Carl Roberts MD [facility] Tissues: Vertebra, NOS Procedures: Decalcification bone/plaque Surgery Specimen Level V HEADER OPERATION: Lumbar 2 kyphoplasty PRE-OP DIAGNOSIS: Wedge compression fracture of second lumbar TISSUE SUBMITTED: L2 vertebral body bone biopsy MICROSCOPIC DIAGNOSIS L2 vertebral body bone, core biopsy: A piece of bone with callus formation and reactive changes, negative for malignancy. See comment. DORIE:codey 03/04/2023 COMMENT Focal area also shows trilineage hematopoiesis. Correlation with clinical findings and appropriate follow up are necessary. MICROSCOPIC DESCRIPTION Slides are reviewed. GROSS DESCRIPTION Received in fixative is one container labeled with the patient's name and designated L2 vertebral body bone. The specimen consists of an elongated piece of bone measuring 0.6 cm in length and 0.1 cm in diameter. The specimen is totally submitted in one cassette after decalcification. / DORIE:codey 03/03/2023 TC:5 CPT: 15643, 21122
== END | disposition home or self-care (01) ==
LOC: LABSPEC 16:12
PROVIDERS: PCP Family Medicine; Referring Provider Orthopaedic Surgery; Visit Provider Orthopaedic Surgery
DX: S32.020A Wedge compression fracture of second lumbar vertebra, initial encounter for closed fracture (principal); X58.XXXA Exposure to other specified factors, initial encounter
CPT/HCPCS: 88305; 88307; 88311

== ENCOUNTER 2023-11-23 08:03 | Inpatient (IN) | payer MEDICARE, SELFPAY ==
[2023-11-23] VITALS (8 sets, daily range): BP systolic 120–159; BP diastolic 62–102; PULSE 94–108; RESP 14–20; TEMP 36.6–37; O2SAT 93–99; BMI 36.3; BMI 34.3
--- NOTE | 2023-11-23 08:34 | EKG12_ITS ---
Test Reason : GENERAL Blood Pressure : / mmHG Vent. Rate : 100 BPM Atrial Rate : 100 BPM P-R Int : 170 ms QRS Dur : 140 ms QT Int : 386 ms P-R-T Axes : 049 106 010 degrees QTc Int : 497 ms Normal sinus rhythm Right bundle branch block Abnormal ECG Confirmed by ANDREW LUA MD ([id number]), photo editor KORI JULES ([id number]) on 11/24/2023 9:14:17 AM Referred By: Confirmed By:ANDREW LUA MD
--- NOTE | 2023-11-23 08:37 | EX.ED.DYSGE1 ---
HPI History of Present Illness Chief Complaint: General Illness Informant: patient and family Onset/Context/Timing Onset: Hours Context: Gradual Onset Timing: Continuous Current Severity: Mild Maximum Severity: Mild Narrative Narrative: 83-year-old female history of hypertension, anemia and prior PE currently not on blood thinners. Said she just felt weak in the last 24 hours. Last night around 1 AM got up to go to the bathroom and fell at home injuring her lower leg. No LOC. No head or neck injury. She denies any recent vomiting, diarrhea or fever. No dysuria. Prior similar symptoms: No Recent Illness/Hospitalization: No PFSH [facility] Medical History Former smoker GERD (gastroesophageal reflux disease) High cholesterol Hypertension Hypothyroidism Home Medications calcium carbonate 500 mg-vitamin D3 5 mcg (200 unit) tablet (Calcium 500 + D) 1 tab PO DAILY SUPPLEMETN 05/09/21 [History Last Taken 05/08/21] levothyroxine 88 mcg tablet 88 mcg PO MOTUWETHFRSA Thyroid 05/09/21 [History Last Taken Unknown] lovastatin 20 mg tablet 40 mg PO DAILY CHOLESTEROL 05/09/21 [History Last Taken 05/09/21] multivitamin 1 tab PO DAILY SUPPLEMENT 05/09/21 [History Last Taken 05/09/21] omeprazole 20 mg capsule,delayed release 20 mg PO DAILY GERD 05/09/21 [History Last Taken 05/09/21] hydrocodone-acetaminophen 5-325mg 5mg-325mg 1 tab PO Q6H PRN PRN Pain 3 days #10 TABLETS 01/12/23 [Rx Last Taken Unknown] nifedipine 30 mg tablet,extended release 24 hr 30 mg PO DAILY 01/12/23 [History Last Taken Unknown] Allergy/AdvReac Type Severity Reaction Status Date / Time No Known Allergies Allergy Verified 01/12/23 10:21 Social History household members: children Smoking Status: Former smoker alcohol intake: never substance use type: does not use ROS ROS ED ROS Narrative Denies recent illness. Generalized weakness the last day or so. Review of Systems ROS Unobtainable: Denies due to encephalopathy Constitutional Constitutional ED: Denies chills or fever(s) Eyes Eyes: Denies blurry vision ENT ENT ED: Denies ear pain Cardiovascular Cardiovascular: Denies chest pain Respiratory/Chest Respiratory/Chest: Denies cough or dyspnea Gastrointestinal Gastrointestinal: Denies abdominal pain, diarrhea, nausea or vomiting Genitourinary Genitourinary ED: Denies dysuria or hematuria Musculoskeletal Musculoskeletal: Denies arthralgias or back pain Integumentary Denies abscess or Abrasions Neurologic Neurologic: Denies headache(s) Psychiatric Psychiatric: Denies anxiety or depression Endocrine Endocrinology: Denies cold intolerance Hematologic/Lymphatic Hematologic/Lymphatic: Reports none Allergic/Immunologic Allergic/Immunologic ED: Denies mouth swelling, tongue swelling or urticaria EXAM Physical Exam Narrative Exam Narrative: Open 83-year-old female. Vital signs are stable afebrile. Pulse ox 95% on room air no signs of hypoxia. H EENT exam dry reactive light. No signs of facial trauma. Scalp nontender no hematoma. Neck nontender. Back nontender. Kyphotic. Chest wall and ribs nontender. Lungs clear to auscultation bilaterally. Heart regular rhythm rate about 100 no murmur. Abdomen is soft and nontender. Normal bowel sounds no peritoneal signs. No obstruction. Pelvic girdle intact. Hips are nontender. No shortening or rotation. She has normal group leader strength both hands. She is able to flex and extension both elbows and shoulders. Hips and, knees and ankles are nontender. Normal dorsi plantarflexion. Left lower leg anterior pack midportion there is a horizontal about 1 inch skin tear to be cleaned and dressed. Neurologically she is awake and alert with no focal motor deficits. Answering questions following commands. Const Vital Signs: 11/23/23 08:07 11/23/23 08:14 11/23/23 09:51 Temperature 97.8 F Temperature Source Oral Pulse Rate 108 H 100 Respiratory Rate 14 16 Respiratory Effort Normal Non-Labored Respiratory Pattern Normal Blood Pressure 130/67 H 137/94 H Blood Pressure Mean 88 108 Pulse Ox 95 93 Oxygen Delivery Method Room Air Room Air Positive well nourished and well developed; Negative for cachectic, contractures or unkempt General Appearance ED: well developed and NAD; Negative for unkempt, cachectic, contractures, cyanotic, diaphoretic or pallor Nutritional Appearance: Negative for cachectic HEENT Reports moist mucous membranes Negative for trauma or tenderness Eyes PERRL General Eye ED: Negative for pale conjunctiva or scleral icterus Neck no lymphadenopathy, supple and no JVD General: Negative for tenderness Lymph Lymphatic: Negative for other Chest Wall inspection of chest normal and palpation of chest normal Chest: Negative for other Resp normal respiratory effort and clear to auscultation bilaterally Effort and Inspection: Negative for retractions Auscultation: Negative for rales, rhonchi or wheezes Cardio regular rate, regular rhythm, S1 normal heart sound, S2 normal heart sound and no murmurs Palpation: Negative for palpable S3 or palpable S4 Rate: Negative for bradycardia or tachycardic Rhythm: Negative for abnormal rhythm GI normal to inspection, nondistended, normoactive bowel sounds, non-tender, non-distended and no masses Inspection: Negative for abdominal distention Auscultation: normoactive bowel sounds Palpation: soft; Negative for tender, guarding or rebound tenderness present Back/Spine no CVA tenderness General Back: Negative for CVA tenderness or other Cervical Spine: Negative for cervical spine tenderness Thoracic Spine / Upper Back: Negative for thoracic spinal tenderness or paraspinal muscle tenderness Lumbar Spine / Lower Back: Negative for lumbar spinal tenderness Extremity normal to inspection General Extremety ED: Negative for edema, tenderness or other findings General Extremity: Negative for edema or other findings Neuro oriented x3 and CN's II-XII intact bilaterally Sensorium / Orientation: alert; Negative for orientation impaired, lethargic or stuporous Motor Exam: general weakness Psych mental status grossly normal Appearance: Negative for unkempt Attitude: No agitated Mood & Affect: Negative for depressed, anxious or tearful Skin no rashes or lesions noted and No no wounds Skin Narrative: Skin tear left lower leg about 1 inch. Will be cleaned and dressed. General Skin Exam: Negative for jaundice or pallor Lesions: No lesion noted Rashes: No rashes noted Trauma: Negative for abrasion MDM MDM MDM Narrative Medical decision making narrative: 83-year-old female complaining generalized weakness last 24 hours. To the bathroom 1 AM this morning fell and laid on the floor about 6 to 7 hours prior to being found at her own home. Other than the small skin tear to her left lower leg she denies any other injuries. Denies fever. Denies vomiting or diarrhea. Denies chest pain or shortness of breath. Screening labs, chest x-ray and EKG will be obtained for generalized weakness. The left lower leg skin wound to be cleaned and dressed. Repeat exam patient is doing well at 11:30 AM. I went over all test results with patient and family. She will be admitted. Hospitalist on page. Due to UTI urine culture was sent. She will be started on IV Rocephin. She is also being given IV fluids times a liter due to her rhabdomyolysis. History & Record Review Discussion w/independent historian: Patient and Family Additional record(s) reviewed:: Prior inpatient record, Prior outpatient record, Prior ED visit, Prior labs and No prior records Lab Data Attestation: I reviewed the patient's lab results. Lab results narrative: CBC shows normal white count 8.8. H&H 12.3 and 37. Platelets 192. Chemistries show gap 7. Normal BUN of 18 creatinine 0.7. Glucose 122. CPK is elevated at 2446. Urinalysis is consistent with a UTI with nitrites 10-25 white cells and 4+ bacteria. Labs: Laboratory Results - last 24 hr 11/23/23 11/23/23 09:25 09:40 WBC 8.8 RBC 3.91 L Hgb 12.3 Hct 37.9 MCV 96.9 MCH 31.5 MCHC 32.5 RDW Std Deviation 47.7 H RDW Coeff of [place]ou[place] 13.3 Plt Count 192 MPV 9.9 Immature Gran % (Auto) 0.500 Neut % (Auto) 77.0 H Lymph % (Auto) 12.9 L [place] % (Auto) 9.0 Eos % (Auto) 0.1 Baso % (Auto) 0.5 Absolute Neuts (auto) 6.8 Absolute Lymphs (auto) 1.14 Nucleated RBC % 0 Sodium 141 Potassium 3.8 Chloride 107 Carbon Dioxide 27.0 Anion Gap 7 BUN 18 Creatinine 0.75 Estim Creat Clear Calc 50.43 Est GFR (MDRD) Af Amer 95 Est GFR (MDRD) Non-Af 79 BUN/Creatinine Ratio 24.1 H Glucose 122 H Calcium 9.4 Total Creatine Kinase 2446 H Urine Color Yellow Urine Clarity Cloudy Urine pH 6.0 Ur Specific Simpson 1.010 Urine Protein 30 H Urine Glucose (UA) Normal Urine Ketones 5 H Urine Occult Blood 250 H Urine Nitrite Positive H Urine Bilirubin Negative Urine Urobilinogen Normal Ur Leukocyte Esterase 500 H Urine RBC 0-5 SEEN Urine WBC 10-25 SEEN Ur Squamous Epith Cells 0-5 SEEN Urine Bacteria 4+ Urine Mucus 1+ Radiography Chest X-Ray - ED: 1 View, Read by ED Physician, Heart, Lungs, Mediastinum, Bony Structures, No Acute Disease and Chronic Changes Diagnostic Testing: Clinical Impression(s) from Imaging Studies Chest X-Ray 11/23/23 08:45 IMPRESSION: Findings suggestive scarring at the lung bases. Large hiatal hernia. Cardiomegaly. Electronically Signed: Sixto Leija MD at 9:05 EDT , Chest x-ray shows a portable film single view, interpreted by myself shows no acute abnormality. Chronic changes. Cardiomegaly. No infiltrate nor effusion. Rhythm Strip Rhythm Strip: Sinus Rhythm Rate: 100 Ectopy: None EKG Initial EKG: Attestation: I personally reviewed and interpreted this EKG as follows: Interpretation: Sinus Rhythm, No Acute Injury Pattern and RBBB Comments: Normal sinus rhythm rate 100 no acute signs of MA or ischemia. Right bundle branch block. Discharge Plan Dx/Rx/DC Orders Clinical Impression: Urinary tract infection, Generalized weakness, Rhabdomyolysis, Fall Disposition Disposition: Acute Care Hospital [facility]
--- NOTE | 2023-11-23 08:45 | RAD_ITS ---
STUDY: X-RAY CHEST REASON FOR EXAM: Female, 83 years old. Weakness TECHNIQUE: Single AP portable view of the chest. COMPARISON: Comparison is made with prior study dated May 09, 2021. FINDINGS: EKG electrodes are seen. Mild increased markings at the lung bases suggestive of scarring. There is no demonstrated pleural abnormality. There is mild cardiac enlargement. Normal mediastinum and cristy. Normal visualized pulmonary arteries. There is atherosclerotic calcification of the aortic arch with tortuosity. There are diffuse degenerative changes of the visualized thoracic spine. Prior vertebroplasty of a upper lumbar vertebrae. Normal visualized ribs, clavicles, and shoulders. Large hiatal hernia. RAD/Chest 1 View (Portable) IMPRESSION: Findings suggestive scarring at the lung bases. Large hiatal hernia. Cardiomegaly. Electronically Signed: Sixto Leija MD at 9:05 EDT ,
[2023-11-23] MEDS: 0.9% Normal Saline (500mL Bag) 500 ML 999 ML IV (09:29)
[2023-11-23 09:35] LABS: Absolute Lymphocyte Count 1.14 X10^3/uL (0.83-4.51); Absolute Neutrophil Count 6.8 X10^3/uL (2.0-7.7); Basophil# 0.04 X10^3/uL; Basophil% 0.5 % (0-1); Eosinophil# 0.01 X10^3/uL; Eosinophils% 0.1 % (0-5); Hematocrit 37.9 % (37-47); Hemoglobin 12.3 g/dL (12.0-15.0); Lymphocyte # 1.14 X10^3/ul (0.83-4.51); Lymphocyte % 12.9 % (19-41); Mean Corp Hgb Conc 32.5 g/dL (32-36); Mean Corpuscular Hgb 31.5 pg (27.0-32.0); Mean Corpuscular Volume 96.9 fL (81-99); Mean Platelet Vol. 9.9 fl (6.2-12.0); Monocyte# 0.79 X10^3/uL; NRBC Flagged by Analyzer 0 % (0-5); Neutrophil # 6.79 X10^3/uL (2.7-7.7); POSITIVE COUNT YES; Platelet Count 192 K/mm3 (150-450); RBC Distribution Width CV 13.3 % (11.6-14.6); RBC Distribution Width SD 47.7 fl (35.1-43.9); Red Blood Count 3.91 M/mm3 (4.2-5.4); White Blood Count 8.8 K/mm3 (4.4-11.0)
[2023-11-23 09:56] LABS: Color, Urine Yellow (Yellow); Glucose, Dipstick Normal (Normal); Ketone-Dipstick 5 mg/dl (Negative); Leukocyte Esterase-Dipstick 500 /ul (Negative); Nitrite-Dipstick Positive (Negative); Occult Blood-Urine 250 /ul (Negative); Protein-Dipstick 30 mg/dl (Negative); Urine Bilirubin Dipstick Negative (Negative); Urine Clarity Cloudy (Clear); Urine Urobilinogen Normal (Normal)
[2023-11-23 10:06] LABS: Bacteria 4+ /hpf (None Seen); Mucous, Urine 1+ /hpf (<or=2+); Red Blood Cells-Urine 0-5 SEEN /hpf (0-5); Squamous Epithelial Cells - UA 0-5 SEEN /hpf (5-10); White Blood Cells 10-25 SEEN /hpf (0-5)
[2023-11-23 10:22] LABS: Anion Gap 7 (5-15); BUN 18 mg/dL (7-18); BUN/Creat Ratio 24.1 RATIO (10-20); CPK Total, Creatine Kinase 2446 U/L (26-192); Calcium,Total 9.4 mg/dL (8.5-10.1); Chloride 107 mmol/L (98-107); Creatinine, Serum 0.75 mg/dL (0.55-1.02); EST Glomerular Filtration Rate 79 mL/min (>60); Est Glom Filt Rate - Afr Amer 95 mL/min (>60); Estimated Creatinine Clearance 50.43 ml/min; Glucose 122 mg/dL (74-106); Potassium 3.8 mmol/L (3.5-5.1); Sodium Level 141 mmol/L (136-145)
--- NOTE | 2023-11-23 11:37 | HP.PCM.HOS_ITS ---
HPI - General General Date of Admission: 11/23/23 Date of Service: 11/23/23 Chief Complaint: Fall with weakness HPI Narrative STEFANO WASHINGTON, is a 83 F who presented to [facility] ED on 11/23/2023 after a fall at home and being down for several hours. Patient seen at bedside in the ED. Patient was laying fairly comfortably in bed, conversing normally, in no acute distress. She appeared to be fairly sharp mentally for her age. Patient states that she lives at home by herself. She unfortunately had a fall last night around 1 AM when she got up to go to the bathroom. She injured her lower leg with a fall but otherwise did not hit her head and did not lose consciousness she reports. Patient states she generally felt a bit weaker over the past 24 hours. Denies any fevers or chills over that time. Denies any other infectious symptoms. Denies any dysuria. Denies any chest pain, shortness of breath, abdominal pain or discomfort. Patient states that she has been hospitalized here in the past back when she had COVID a few years ago, and she went to the TCU on discharge and then had home health care come into the home to help her for about 6 weeks after that. She had a very good experience with these things. She previously had a bad experience at another [facility] and significantly prefers to go to the TCU on discharge if needed. In the ED, patient was found to have a creatinine kinase level of 2446. Kidney function was at baseline. CBC and BMP were otherwise benign. Chest x-ray was nonacute. UA was infectious appearing. Given her acute debility, rhabdomyolysis and concern for UTI, patient was admitted for further management. [facility] Medical History (Updated 11/23/23 @ 12:59 by Moira Vee) Chronic pain Former smoker GERD (gastroesophageal reflux disease) High cholesterol Hypertension Hypothyroidism Rheumatoid arthritis Home Medications calcium carbonate 500 mg-vitamin D3 5 mcg (200 unit) tablet (Calcium 500 + D) 1 tab PO DAILY SUPPLEMETN 05/09/21 [History Last Taken 05/08/21] levothyroxine 88 mcg tablet 88 mcg PO MOTUWETHFRSA Thyroid 05/09/21 [History Last Taken Unknown] lovastatin 20 mg tablet 40 mg PO DAILY CHOLESTEROL 05/09/21 [History Last Taken 05/09/21] multivitamin 1 tab PO DAILY SUPPLEMENT 05/09/21 [History Last Taken 05/09/21] omeprazole 20 mg capsule,delayed release 20 mg PO DAILY GERD 05/09/21 [History Last Taken 05/09/21] hydrocodone-acetaminophen 5-325mg 5mg-325mg 1 tab PO Q6H PRN PRN Pain 3 days #10 TABLETS 01/12/23 [Rx Last Taken Unknown] nifedipine 30 mg tablet,extended release 24 hr 30 mg PO DAILY 01/12/23 [History Last Taken Unknown] Allergy/AdvReac Type Severity Reaction Status Date / Time No Known Allergies Allergy Verified 01/12/23 10:21 Social History household members: children Smoking Status: Former smoker alcohol intake: never substance use type: does not use ROS Constitutional Constitutional: Reports fatigue and weakness; Denies chills or fever(s) Eyes Eyes: Denies change in vision Cardiovascular Cardiovascular: Denies chest pain or syncope Respiratory/Chest Respiratory/Chest: Denies cough or shortness of breath with exertion Gastrointestinal Gastrointestinal: Denies abdominal pain, nausea or vomiting Genitourinary Genitourinary: Denies dysuria, hematuria, urinary frequency or urinary urgency Musculoskeletal Musculoskeletal: Denies arthralgias, back pain, joint pain, joint swelling or myalgias Neurologic Neurologic: Denies focal weakness, headache(s) or numbness Vital Signs Vital Signs Vital Signs: 11/23/23 08:07 11/23/23 08:14 11/23/23 09:51 Temperature 97.8 F Temperature Source Oral Pulse Rate 108 H 100 Respiratory Rate 14 16 Respiratory Effort Normal Non-Labored Respiratory Pattern Normal Blood Pressure 130/67 H 137/94 H Blood Pressure Mean 88 108 Pulse Ox 95 93 Oxygen Delivery Method Room Air Room Air Weight Weight: 84.3 kg Body Mass Index (BMI) 36.3 Physical Exam Const alert, oriented x3 and no apparent distress Constitutional Narrative: Pleasant elderly female, obese, laying comfortably in bed, conversing normally, in no acute distress. General Appearance: cooperative and comfortable HEENT normocephalic, head/scalp atraumatic, hearing grossly normal bilaterally and nasal mucous membranes and turbinates normal Eyes PERRL, EOMs intact bilaterally and conjunctivae normal Neck full ROM Chest inspection of chest normal Resp normal respiratory effort, normal air movement, no use of accessory muscles and clear to auscultation bilaterally Cardio regular rate, regular rhythm, no murmurs and peripheral pulses 2+ throughout GI normal to inspection, nondistended, normoactive bowel sounds, soft to palpation, non-tender and non-distended Back/Spine normal ROM Extremity normal to inspection, full ROM and no pedal edema Skin Skin Narrative: Skin tear of left lower leg noted in ED, was cleaned and dressed by ED staff, bandage in place. Neuro moves all extremities and no focal motor deficits Speech: speech normal Psych mental status grossly normal Results Lab / Micro Data 11/23/23 09:25 11/23/23 09:25 Labs: Laboratory Results - last 24 hr 11/23/23 09:25: WBC 8.8, RBC 3.91 L, Hgb 12.3, Hct 37.9, MCV 96.9, MCH 31.5, MCHC 32.5, RDW Std Deviation 47.7 H, RDW Coeff of Fouzia 13.3, Plt Count 192, MPV 9.9, Immature Gran % (Auto) 0.500, Neut % (Auto) 77.0 H, Lymph % (Auto) 12.9 L, Jay % (Auto) 9.0, Eos % (Auto) 0.1, Baso % (Auto) 0.5, Absolute Neuts (auto) 6.8, Absolute Lymphs (auto) 1.14, Nucleated RBC % 0, Sodium 141, Potassium 3.8, Chloride 107, Carbon Dioxide 27.0, Anion Gap 7, BUN 18, Creatinine 0.75, Estim Creat Clear Calc 50.43, Est GFR (MDRD) Af Amer 95, Est GFR (MDRD) Non-Af 79, BUN/Creatinine Ratio 24.1 H, Glucose 122 H, Calcium 9.4, Total Creatine Kinase 2446 H 11/23/23 09:40: Urine Color Yellow, Urine Clarity Cloudy, Urine pH 6.0, Ur Specific [place] 1.010, Urine Protein 30 H, Urine Glucose (UA) Normal, Urine Ketones 5 H, Urine Occult Blood 250 H, Urine Nitrite Positive H, Urine Bilirubin Negative, Urine Urobilinogen Normal, Ur Leukocyte Esterase 500 H, Urine RBC 0-5 SEEN, Urine WBC 10-25 SEEN, Ur Squamous Epith Cells 0-5 SEEN, Urine Bacteria 4+, Urine Mucus 1+ Rhythm Strip Rhythm Strip: Sinus Rhythm Rate: 100 Ectopy: None Imaging Radiology Impression Chest X-Ray 11/23/23 08:45 IMPRESSION: Findings suggestive scarring at the lung bases. Large hiatal hernia. Cardiomegaly. Electronically Signed: Sixto Leija MD at 9:05 EDT , Assessment & Plan Assessment/Plan (1) Fall: (2) Rhabdomyolysis: (3) Generalized weakness: (4) Urinary tract infection: PLAN: Plan Patient is an 83-year-old female who presented [facility] ED on 11/23/2023 after a fall at home and being down for several hours after that due to weakness. 1. Mechanical fall, acute on chronic debility ? Admit under inpatient status to [facility]. PT/OT/case management consulted. Lives at home alone, uses walker for ambulation at baseline. Generally has decent functional status, suspect acute weakness is due to UTI as noted below. Denied hitting her head or loss of consciousness, no significant external injuries noted aside from small left leg skin tear, no imaging needed on admission. Will likely need either SNF or home with home health care on discharge. 2. Rhabdomyolysis ? Creatinine kinase level 2446 on admission. Presumed secondary to being down for several hours after fall. Kidney function normal. Given 1 L bolus in the ED, will hold on further fluids for now and encourage p.o. intake. Repeat CK level tomorrow. 3. Suspected UTI ? UA with 500 leukocyte esterase, positive nitrites, 4+ bacteria. Urine culture pending. Given dose of ceftriaxone in the ED, will continue this for now. 4. Small left leg skin tear ? About 1 inch skin tear noted in the ED. Cleaned and dressed in the ED, bandage in place. Monitor. Chronic medical conditions: ? Obesity: BMI 34 on admit. Complicates hospital course, care and prognosis. ? Hypothyroidism: TSH ordered. Continue home Synthroid. ? Hypertension: Continue home nifedipine. ? Hyperlipidemia: Continue home statin. ? GERD: Continue home PPI. DVT prophylaxis: Lovenox CODE STATUS: DNR CCA, DNI Expected disposition: SNF versus home with home health care, TBD Total clinical time spent by myself addressing the patient's medical issues, reviewing all the data, and collaborating with patient's care team: 35 minutes. Charges/Coding Visit Charges Inpatient E&M: 76316 Init Hosp L2
--- NOTE | 2023-11-23 11:40 | NURSING ---
DR ELKINS FOR DR SANCHEZ
--- NOTE | 2023-11-23 11:47 | NURSING ---
MED SURG SEVERO UTI, FALL, RHABDO, WEAKNESS
[2023-11-23] MEDS: 0.9% Normal Saline (1000mL) 1,000 ML 999 ML IV (11:55)
--- NOTE | 2023-11-23 12:37 | ED.RN ---
called workers compensation administrator Sonja that pt has rocephin ordered and nurse was already transporting. med is on OCT- will need to be administered on floor.
[2023-11-23] MEDS: Ceftriaxone 1 GM/50 ML BAG IV (13:17)
[2023-11-23] MEDS: Levothyroxine 88 MCG Tablet PO (15:17)
[2023-11-23 15:52] LABS: Thyroid Stim Hormone (TSH) 1.59 uIU/mL (0.358-3.74)
[2023-11-23] MEDS: Atorvastatin Calcium 10 MG Tablet PO (21:44)
[2023-11-24 05:03] VITALS: BP 124/98; PULSE 85; RESP 18; TEMP 36.9; O2SAT 97
[2023-11-24] MEDS: Levothyroxine 88 MCG Tablet PO (05:05)
[2023-11-24 07:05] VITALS: O2SAT 93
[2023-11-24 07:30] VITALS: BP 120/70; PULSE 96; RESP 16; TEMP 37.2; O2SAT 95
[2023-11-24 07:33] LABS: Hematocrit 36.3 % (37-47); Hemoglobin 11.8 g/dL (12.0-15.0); Mean Corp Hgb Conc 32.5 g/dL (32-36); Mean Corpuscular Hgb 31.8 pg (27.0-32.0); Mean Corpuscular Volume 97.8 fL (81-99); Mean Platelet Vol. 10.7 fl (6.2-12.0); Platelet Count 203 K/mm3 (150-450); RBC Distribution Width CV 13.3 % (11.6-14.6); Red Blood Count 3.71 M/mm3 (4.2-5.4); White Blood Count 8.4 K/mm3 (4.4-11.0)
[2023-11-24 08:16] LABS: Anion Gap 5 (5-15); BUN 10 mg/dL (7-18); BUN/Creat Ratio 17.3 RATIO (10-20); CPK Total, Creatine Kinase 2204 U/L (26-192); Chloride 108 mmol/L (98-107); Creatinine, Serum 0.58 mg/dL (0.55-1.02); EST Glomerular Filtration Rate 105 mL/min (>60); Est Glom Filt Rate - Afr Amer 127 mL/min (>60); Estimated Creatinine Clearance 48.91 ml/min; Glucose 105 mg/dL (74-106); Potassium 3.7 mmol/L (3.5-5.1); Sodium Level 138 mmol/L (136-145)
[2023-11-24] MEDS: Pantoprazole Sodium 20 MG Tablet PO (09:29)
[2023-11-24] MEDS: NIFEdipine 30 MG Tablet PO (09:29)
[2023-11-24] MEDS: Enoxaparin 40 MG/0.4 ML Syringe SC (09:29)
[2023-11-24] MEDS: Ceftriaxone 1 GM/50 ML BAG IV (09:31)
[2023-11-24] MEDS: Lactated Ringers 1,000 ML 200 ML IV (09:32)
--- NOTE | 2023-11-24 10:18 | PCM.PN.HOSP ---
Reason for Visit Reason for Visit: Diagnoses Rhabdomyolysis (11/23/23) Urinary tract infection, site not specified (11/23/23) Weakness (11/23/23) Unspecified fall, initial encounter (11/23/23) Subjective Subjective No acute events overnight. Patient seen at bedside this morning, multiple family numbers present. Patient was sitting up comfortably in bedside chair, conversing normally, in no acute distress. She denies any fevers or chills. Denies any pain or discomfort this morning. She had been up to work with physical therapy prior to my arrival and did feel weaker from her baseline when working with them but otherwise tolerated the therapy session without issue. No other acute concerns today. Objective Data Objective Data Vital Signs: Vital Signs Temp Pulse Resp BP Pulse Ox O2 Del Method 99.0 F 96 16 120/70 95 Room Air 11/24/23 07:30 11/24/23 07:30 11/24/23 07:30 11/24/23 07:30 11/24/23 07:30 11/24/23 07:30 Oxygen Delivery Method Room Air Weight: 79.7 kg Body Mass Index (BMI) 34.3 Intake & Output: Intake and Output for Last 24 Hours 11/22/23 11/23/23 11/24/23 23:59 23:59 23:59 Intake Total 2400 / 2645 445 / 445 Output Total 500 / 500 Balance 2400 / 2645 -55 / -55 Lab / Micro Data 11/24/23 06:25 11/24/23 06:25 Labs: Laboratory Results - last 24 hr 11/23/23 09:25: Sodium 141, Potassium 3.8, Chloride 107, Carbon Dioxide 27.0, Anion Gap 7, BUN 18, Creatinine 0.75, Estim Creat Clear Calc 50.43, Est GFR (MDRD) Af Amer 95, Est GFR (MDRD) Non-Af 79, BUN/Creatinine Ratio 24.1 H, Glucose 122 H, Calcium 9.4, Total Creatine Kinase 2446 H 11/23/23 15:03: TSH 1.59 11/24/23 06:25: WBC 8.4, RBC 3.71 L, Hgb 11.8 L, Hct 36.3 L, MCV 97.8, MCH 31.8, MCHC 32.5, RDW Std Deviation 48.0 H, RDW Coeff of Fouzia 13.3, Plt Count 203, MPV 10.7, Sodium 138, Potassium 3.7, Chloride 108 H, Carbon Dioxide 25.0, Anion Gap 5, BUN 10, Creatinine 0.58, Estim Creat Clear Calc 48.91, Est GFR (MDRD) Af Amer 127, Est GFR (MDRD) Non-Af 105, BUN/Creatinine Ratio 17.3, Glucose 105, Calcium 9.0, Total Creatine Kinase 2204 H Micro: Microbiology 11/23/23 09:40 Urine, Clean Catch Urine Culture - Preliminary Presumptive E. coli Rhythm Strip Rhythm Strip: Sinus Rhythm Rate: 100 Ectopy: None Physical Exam Const alert, oriented x3 and no apparent distress Constitutional Narrative: Obese. General Appearance: cooperative and comfortable HEENT normocephalic, head/scalp atraumatic, hearing grossly normal bilaterally and nasal mucous membranes and turbinates normal Eyes PERRL, EOMs intact bilaterally and conjunctivae normal Neck full ROM Chest inspection of chest normal Resp normal respiratory effort, normal air movement, no use of accessory muscles and clear to auscultation bilaterally Cardio regular rate, regular rhythm, no murmurs and peripheral pulses 2+ throughout GI normal to inspection, nondistended, normoactive bowel sounds, soft to palpation, non-tender and non-distended Back/Spine normal ROM Extremity normal to inspection, full ROM and no pedal edema Skin Skin Narrative: Skin tear of left lower leg noted in ED, was cleaned and dressed by ED staff, bandage in place. Neuro moves all extremities and no focal motor deficits Speech: speech normal Psych mental status grossly normal Assessment & Plan Assessment/Plan (1) Fall: (2) Rhabdomyolysis: (3) Generalized weakness: (4) Urinary tract infection: PLAN: Plan Patient is an 83-year-old female who presented [facility] ED on 11/23/2023 after a fall at home and being down for several hours after that due to weakness. 1. Mechanical fall, acute on chronic debility ? PT/OT/case management following. Lives at home alone, uses walker for ambulation at baseline. Generally has decent functional status, suspect acute weakness is due to UTI as noted below. Denied hitting her head or loss of consciousness, no significant external injuries noted aside from small left leg skin tear, no imaging needed on admission. Per initial therapy recommendations, appears patient would be a better candidate for a alf facility on discharge as opposed to home health care. However, patient and family are adamant about only going to the TCU versus home and per CM, TCU unfortunately will not be an option for her. Will continue to follow closely. 2. Rhabdomyolysis, improving ? Creatinine kinase level 2446 on admission. Presumed secondary to being down for several hours after fall. Kidney function normal. Given 1 L bolus in the ED, repeat CK level of 2204 on hospital day 2. Kidney function remains normal. Will give another 1 L total of LR today, recheck CK level tomorrow. 3. Presumed UTI ? UA with 500 leukocyte esterase, positive nitrites, 4+ bacteria. Urine culture preliminarily growing > 100K E. coli. Notably grew pansensitive E. coli on urine culture and 2021. No systemic signs of infection. Continue IV ceftriaxone for now. 4. Small left leg skin tear ? About 1 inch skin tear noted in the ED. Cleaned and dressed in the ED, bandage in place. Monitor. Chronic medical conditions: ? Obesity: BMI 34 on admit. Complicates hospital course, care and prognosis. ? Hypothyroidism: TSH normal. Continue home Synthroid. ? Hypertension: Continue home nifedipine. ? Hyperlipidemia: Continue home statin. ? GERD: Continue home PPI. DVT prophylaxis: Lovenox CODE STATUS: DNR CCA, DNI Expected disposition: SNF versus home with home health care, 1-2 days Total clinical time spent by myself addressing the patient's medical issues, reviewing all the data, and collaborating with patient's care team: 35 minutes. Charges/Coding Visit Charges Inpatient E&M: 67392 Subs Hosp L2
--- NOTE | 2023-11-24 11:00 | CASEMGMT ---
Addendum entered by Clifford Springer 11/24/23 15:30: Michael Carrillo @ [facility], they are able to accept pt w/SOC Tuesday 11/28. Therapy notes reviewed. RN LORENA back to room to talk w/pt. She states she is pretty weak and would like a referral made to [facility] TCU. She states if TCU is not able to accept her, then she is going home, re-iterating she is not going to any fdc. She states, I'll just tough it out. Vita/SW made aware of above. Original Note: RN CM LOLLYPOP MACHINE OPERATOR CM to room to meet with patient for initial transition planning/care coordination assessment. RN LORENA introduced self and role at [facility]. Pt voices understanding and consents to assessment at this time. Pt resting in bed in no distress at this time. Pt is A/O at this time and answers all questions appropriately. Care providers, pharmacy, and demographics verified/updated at this time. PCP: Dr Roberts Specialists: Pt states she sees a optical coating technician, but does not remember name. Preferred Pharmacy: [facility] @ d/c Insurance: [employer] [facility] Prescription Benefit: yes Living Will/HPOA: Pt has both LW and HPOA, who is her daughter, Deisy Quezada LNOK: dtr/PODavid, Deisy Quezada. GD, Melanie Ojeda. Pt also has another dtr, Celina, and a son, Mirza. Living Arrangements: Pt lives alone in one-story home w/6 small steps to enter. Pt able to navigate the stairs on her own, but states family is always w/her to ensure for safety when she goes up/down them. DtrCelina, lives next door and GD visits often and they and other family help w/groceries, meals, and all home mgnt tasks. Pt states she is indep w/her own ADL's. DtrDeisy, sets up weekly pill containers. Transportation: Family DME: States has the following DME: shower chair, cane, walker, W/C (does not use), medical alert (she had it attached to her walker when she fell, but plans to wear it from now on), BP machine, pulse ox, lift chair. No home O2. Pt states no need for further DME at this time. HHC/SNF: Pt has been to [facility] TCU in the past and has had [facility] and another HHC (does not remember name). Pt states she prefers to d/c home, if able, and would like [facility] again. She declines wanting list of other [facility] options unless [facility] unable to accept her. [facility] order placed for SN and PT/OT. Call placed to Lorena @ [facility] and referral made. When asked pt, if she is still weak when medically ready for discharge and SNF recommended by therapy, if she would want to go to SNF. Pt stated she may consider [facility] TCU, but she states will not go to any fdc. Therapy evals pending. PLAN: Home w/HHC. PT/OT evals pending. Pt prefers to d/c home. States may consider [facility] TCU, if SNF needed. Asher GUAMANN RN CM
[2023-11-24 14:18] VITALS: BP 137/73; PULSE 97; RESP 16; TEMP 36.7; O2SAT 97
[2023-11-24 15:00] VITALS: RESP 18; O2SAT 95
--- NOTE | 2023-11-24 15:56 | CASEMGMT ---
Social Work Referral received from RNCM that pt is requesting placement at TCU. Pt is refusing a list of SNF provider options. Referral sent to TCU. SW will await determination of acceptance. Plan: TCU, pending acceptance JENNIFER Myles
--- NOTE | 2023-11-24 16:14 | NURSING ---
All documentation by shade cloth finisher, Simone Castro, reviewed by physical therapy instructor, Judi GUAMANN, RN.
[2023-11-24 21:26] VITALS: BP 96/58; PULSE 89; RESP 18; TEMP 36.6; O2SAT 98
[2023-11-24] MEDS: MELATONIN 3 MG TABLET PO (21:38)
[2023-11-24] MEDS: traMADol 50 MG Tablet PO (21:38)
[2023-11-24] MEDS: Atorvastatin Calcium 10 MG Tablet PO (21:39)
[2023-11-24] MEDS: Cephalexin 500 MG Capsule PO (21:40)
[2023-11-25 03:11] VITALS: BP 102/59; PULSE 82; RESP 18; TEMP 36.7; O2SAT 97
[2023-11-25] MEDS: Levothyroxine 88 MCG Tablet PO (05:22)
[2023-11-25] MEDS: Cephalexin 500 MG Capsule PO ×3 (05:22→21:45)
[2023-11-25 07:53] LABS: CPK Total, Creatine Kinase 1138 U/L (26-192)
[2023-11-25 07:57] VITALS: BP 115/61; PULSE 79; RESP 18; TEMP 36.8; O2SAT 92
[2023-11-25] MEDS: NIFEdipine 30 MG Tablet PO (08:00)
[2023-11-25] MEDS: Pantoprazole Sodium 20 MG Tablet PO (08:00)
[2023-11-25] MEDS: Enoxaparin 40 MG/0.4 ML Syringe SC (08:00)
[2023-11-25 09:57] VITALS: O2SAT 97
[2023-11-25 10:42] VITALS: O2SAT 92
[2023-11-25] MEDS: traMADol 50 MG Tablet PO ×2 (10:44→21:47)
--- NOTE | 2023-11-25 10:55 | CASEMGMT ---
Addendum entered by Vita Hawley 11/25/23 15:53: Call to Nae at [facility]. Referral has been received and is currently being reviewed. Nae confirms there will be a determination by tomorrow. JENNIFER Myles Addendum entered by Vita Hawley 11/25/23 14:15: Social Work No reply from [facility]. Phone call to Nae at [facility] who states she did not receive the referral through [facility]. [facility] faxed referral and requested it be reviewed. JENNIFER Myles Original Note: Social Work TCU is unable to accept pt. SW met with pt and two daughters and updated that TCU cannot accept. Pt is stating that she does not want to go to a penitentiary. SW presented possible options of [facility] or [facility] residential units. A list of SNF providers including quality and resource use data and consistent with the patient?s preferred geographic region, medical needs, and insurance network were provided from the [facility] Guide. Pt preference is [facility] Skilled unit. Pt's dgts state is [facility] cannot accept then pt can go to [place]. Pt is resistant to this. Referral made to [facility]illed Unit. SW will await determination of acceptance. JENNIFER Myles
--- NOTE | 2023-11-25 12:24 | PN.HOSP_ITS ---
Reason for Visit Reason for Visit: Diagnoses Rhabdomyolysis (11/23/23) Urinary tract infection, site not specified (11/23/23) Weakness (11/23/23) Unspecified fall, initial encounter (11/23/23) Subjective Subjective No acute events overnight. Patient seen at bedside this morning, medical case worker also present at bedside. Patient had fairly poor therapy scores yesterday and recommendation was for SNF on discharge. Unfortunately, medical case worker told patient and family this morning that TCU was not able to accept her. Patient and family were okay with referrals being sent to [facility] in-hospital rehab facilities instead. Patient states that she feels better today compared yesterday, would like to work again with physical therapy to see if she does better. She denies any significant pain or discomfort this morning. No other acute concerns. Objective Data Objective Data Vital Signs: Vital Signs Temp Pulse Resp BP Pulse Ox O2 Del Method 98.3 F 79 18 115/61 92 Room Air 11/25/23 07:57 11/25/23 07:57 11/25/23 07:57 11/25/23 07:57 11/25/23 10:42 11/25/23 10:42 Oxygen Delivery Method Room Air Weight: 79.7 kg Body Mass Index (BMI) 34.3 Intake & Output: Intake and Output for Last 24 Hours 11/23/23 11/24/23 11/25/23 23:59 23:59 23:59 Intake Total 2400 / 2645 2745 / 2945 600 / 600 Output Total 500 / 800 800 / 800 Balance 2400 / 2645 2245 / 2145 -200 / -200 Lab / Micro Data 11/24/23 06:25 11/24/23 06:25 Labs: Laboratory Results - last 24 hr 11/25/23 06:46: Total Creatine Kinase 1138 H Micro: Microbiology 11/23/23 09:40 Urine, Clean Catch Urine Culture - Final Presumptive E. coli Rhythm Strip Rhythm Strip: Sinus Rhythm Rate: 100 Ectopy: None Physical Exam Const alert, oriented x3 and no apparent distress Constitutional Narrative: Obese. General Appearance: cooperative and comfortable HEENT normocephalic, head/scalp atraumatic, hearing grossly normal bilaterally and nasal mucous membranes and turbinates normal Eyes PERRL, EOMs intact bilaterally and conjunctivae normal Neck full ROM Chest inspection of chest normal Resp normal respiratory effort, normal air movement, no use of accessory muscles and clear to auscultation bilaterally Cardio regular rate, regular rhythm, no murmurs and peripheral pulses 2+ throughout GI normal to inspection, nondistended, normoactive bowel sounds, soft to palpation, non-tender and non-distended Back/Spine normal ROM Extremity normal to inspection, full ROM and no pedal edema Skin Skin Narrative: Skin tear of left lower leg noted in ED, was cleaned and dressed by ED staff, bandage in place. Neuro moves all extremities and no focal motor deficits Speech: speech normal Psych mental status grossly normal Assessment & Plan Assessment/Plan (1) Fall: (2) Rhabdomyolysis: (3) Generalized weakness: (4) Urinary tract infection: PLAN: Plan Patient is an 83-year-old female who presented [facility] ED on 11/23/2023 after a fall at home and being down for several hours after that due to weakness. 1. Mechanical fall, acute on chronic debility ? PT/OT/case management following. Lives at home alone, uses walker for ambulation at baseline. Generally has decent functional status, suspect acute weakness is due to UTI as noted below. Denied hitting her head or loss of consciousness, no significant external injuries noted aside from small left leg skin tear, no imaging needed on admission. Per therapy recommendations, patient would be a better candidate for a residential facility on discharge as opposed to home health care. TCU not able to accept patient, referrals sent to [facility] and hospital rehab facilities and are pending. Patient is [facility] ready for discharge on 11/24, awaiting placement. 2. Rhabdomyolysis, improving ? Creatinine kinase level 2446 on admission. Presumed secondary to being down for several hours after fall. Kidney function normal. Given 1 L bolus in the ED, repeat CK level of 2204 on hospital day 2. Given another 1 L of IV fluids on 11/23, repeat CK level of 1138 on 11/24. Kidney function has remained normal throughout hospitalization. No need for further IV fluids, encourage p.o. intake. No need to check further CK levels. 3. Acute cystitis ? UA with 500 leukocyte esterase, positive nitrites, 4+ bacteria. Urine culture preliminarily growing > 100K E. coli, intermediate sensitivity to Macrobid but otherwise pansensitive. Patient had some delirium on 11/23 and pulled out IV, de-escalated patient to p.o. Keflex at that time. No systemic signs of infection during hospitalization. Continue p.o. Keflex with plan for 7-day course of antibiotics total. 4. Small left leg skin tear, stable ? About 1 inch skin tear noted in the ED. Cleaned and dressed in the ED, bandage in place. Monitor. Chronic medical conditions: ? Obesity: BMI 34 on admit. Complicates hospital course, care and prognosis. ? Hypothyroidism: TSH normal. Continue home Synthroid. ? Hypertension: Continue home nifedipine. ? Hyperlipidemia: Continue home statin. ? GERD: Continue home PPI. DVT prophylaxis: Lovenox CODE STATUS: DNR CCA, DNI Expected disposition: SNF, medically ready for discharge on 11/24, awaiting plac ement Total clinical time spent by myself addressing the patient's medical issues, reviewing all the data, and collaborating with patient's care team: 35 minutes. Charges/Coding Visit Charges Inpatient E&M: 70917 Subs Hosp L2
[2023-11-25 13:57] VITALS: BP 97/45; PULSE 90; RESP 20; TEMP 36.8; O2SAT 95
--- NOTE | 2023-11-25 14:40 | CHAPLAIN ---
Type of Pastoral Visit _x__ Initial Visit ___ Follow-up Visit ___ On-call Visit ___ General Patient Visit ___ Spiritual Assessment ___ Family Conference ___ Bereavement ___ Rapid Response ___ Code Blue ___ Other (describe below) Pastoral Care Referral From _x__ Patient ___ Family ___ Nurse ___ Physician ___ Water Technician ___ Regional Education Coordinator ___ Other (describe below) Sacrament/Intervention _x__ Active listening ___ Anointing ___ Christian ___ Bereavement ___ Communion _x__ Urszula exploration ___ _x__ Life review _x__ Prayer ___ Reconciliation ___ Sacrament of Sick _x__ Supportive presence ___ Wedding ___ Other (describe below) Pastoral Comments patient is very welcoming and states several times about the importance, above other things, for spiritual care and prayer; pt talks about her situation and her hope for the future; pt presents with a positive attitude and says that God and urszula are her greatest confidence and hope
[2023-11-25] MEDS: MENTHOL 226.8 GM JAR 1 APPLIC TOPICAL ×2 (16:10→21:45)
[2023-11-25 21:38] VITALS: BP 138/83; PULSE 99; RESP 16; TEMP 36.7; O2SAT 95
[2023-11-25] MEDS: Atorvastatin Calcium 10 MG Tablet PO (21:44)
[2023-11-25] MEDS: MELATONIN 3 MG TABLET PO (21:46)
[2023-11-26 06:10] VITALS: BP 119/56; PULSE 89; RESP 16; TEMP 36.9; O2SAT 95
[2023-11-26] MEDS: Levothyroxine 88 MCG Tablet PO (06:14)
[2023-11-26] MEDS: Cephalexin 500 MG Capsule PO ×2 (06:14→14:08)
[2023-11-26 07:28] VITALS: O2SAT 92
[2023-11-26 09:23] LABS: Hematocrit 35.4 % (37-47); Hemoglobin 11.2 g/dL (12.0-15.0); Mean Corp Hgb Conc 31.6 g/dL (32-36); Mean Corpuscular Volume 98.1 fL (81-99); Mean Platelet Vol. 10.3 fl (6.2-12.0); Platelet Count 215 K/mm3 (150-450); RBC Distribution Width CV 13.2 % (11.6-14.6); RBC Distribution Width SD 47.1 fl (35.1-43.9); Red Blood Count 3.61 M/mm3 (4.2-5.4); White Blood Count 6.1 K/mm3 (4.4-11.0)
[2023-11-26 10:20] LABS: Anion Gap 8 (5-15); BUN 12 mg/dL (7-18); BUN/Creat Ratio 17.1 RATIO (10-20); Calcium,Total 8.6 mg/dL (8.5-10.1); Chloride 100 mmol/L (98-107); EST Glomerular Filtration Rate 84 mL/min (>60); Est Glom Filt Rate - Afr Amer 102 mL/min (>60); Estimated Creatinine Clearance 48.91 ml/min; Glucose 117 mg/dL (74-106); Potassium 3.3 mmol/L (3.5-5.1); Sodium Level 135 mmol/L (136-145)
[2023-11-26] MEDS: Pantoprazole Sodium 20 MG Tablet PO (10:20)
[2023-11-26] MEDS: Enoxaparin 40 MG/0.4 ML Syringe SC (10:20)
[2023-11-26] MEDS: Senna/Docusate Sodium 1 Tablet PO (10:20)
[2023-11-26] MEDS: traMADol 50 MG Tablet PO (10:20)
--- NOTE | 2023-11-26 10:22 | CASEMGMT ---
Social Work Pt accepted at [facility] and precert started. SW let pt and daughters Deisy and Celina in room know. SW will continue to follow. KARYN Gil
[2023-11-26] MEDS: Acetaminophen 325 MG Tablet 650 MG PO ×2 (10:26→19:12)
[2023-11-26] MEDS: MENTHOL 226.8 GM JAR 1 APPLIC TOPICAL (10:27)
[2023-11-26 10:41] VITALS: BP 126/64; PULSE 90; RESP 18; TEMP 36.6; O2SAT 95
[2023-11-26] MEDS: NIFEdipine 30 MG Tablet PO (10:59)
--- NOTE | 2023-11-26 11:41 | PCM.PN.HOSP ---
Reason for Visit Reason for Visit: Diagnoses Rhabdomyolysis (11/23/23) Urinary tract infection, site not specified (11/23/23) Weakness (11/23/23) Unspecified fall, initial encounter (11/23/23) Subjective Subjective No acute events overnight. Patient seen bedside this morning, 2 other family members present. Patient was sitting up in bed, appeared fairly comfortable but was stating that she felt slightly wheezy today. She has no history of asthma or COPD, does not use any inhalers at home. Was hoping to have a breathing treatment done to see if this would help her. She otherwise denied any other new concerns this morning. Had been told by wrapper caser that [facility] rehab had accepted her and she was just awaiting bed placement, and she and family were pleased by this. Objective Data Objective Data Vital Signs: Vital Signs Temp Pulse Resp BP Pulse Ox O2 Del Method 98 F 90 18 126/64 H 95 Room Air 11/26/23 10:41 11/26/23 10:41 11/26/23 10:41 11/26/23 10:41 11/26/23 10:41 11/26/23 10:41 Oxygen Delivery Method Room Air Weight: 79.7 kg Body Mass Index (BMI) 34.3 Intake & Output: Intake and Output for Last 24 Hours 11/24/23 11/25/23 11/26/23 23:59 23:59 23:59 Intake Total 2745 / 2945 800 / 800 300 / 300 Output Total 500 / 800 1100 / 1100 400 / 400 Balance 2245 / 2145 -300 / -300 -100 / -100 Lab / Micro Data 11/26/23 08:31 11/26/23 08:31 Labs: Laboratory Results - last 24 hr 11/26/23 08:31: WBC 6.1, RBC 3.61 L, Hgb 11.2 L, Hct 35.4 L, MCV 98.1, MCH 31.0, MCHC 31.6 L, RDW Std Deviation 47.1 H, RDW Coeff of Fouzia 13.2, Plt Count 215, MPV 10.3, Sodium 135 L, Potassium 3.3 L, Chloride 100, Carbon Dioxide 27.0, Anion Gap 8, BUN 12, Creatinine 0.70, Estim Creat Clear Calc 48.91, Est GFR (MDRD) Af Amer 102, Est GFR (MDRD) Non-Af 84, BUN/Creatinine Ratio 17.1, Glucose 117 H, Calcium 8.6 Micro: Microbiology 11/23/23 09:40 Urine, Clean Catch Urine Culture - Final Presumptive E. coli Rhythm Strip Rhythm Strip: Sinus Rhythm Rate: 100 Ectopy: None Physical Exam Const alert, oriented x3 and no apparent distress Constitutional Narrative: Obese. General Appearance: cooperative and comfortable HEENT normocephalic, head/scalp atraumatic, hearing grossly normal bilaterally and nasal mucous membranes and turbinates normal Eyes PERRL, EOMs intact bilaterally and conjunctivae normal Neck full ROM Chest inspection of chest normal Resp normal respiratory effort and no use of accessory muscles Resp Narrative: Good air movement bilaterally, no wheezing noted in upper airways. No crackles noted. Cardio regular rate, regular rhythm, no murmurs and peripheral pulses 2+ throughout GI normal to inspection, nondistended, normoactive bowel sounds, soft to palpation, non-tender and non-distended Back/Spine normal ROM Extremity normal to inspection, full ROM and no pedal edema Skin Skin Narrative: Skin tear of left lower leg noted in ED, was cleaned and dressed by ED staff, bandage in place. Neuro moves all extremities and no focal motor deficits Speech: speech normal Psych mental status grossly normal Assessment & Plan Assessment/Plan (1) Fall: (2) Rhabdomyolysis: (3) Generalized weakness: (4) Urinary tract infection: PLAN: Plan Patient is an 83-year-old female who presented [facility] ED on 11/23/2023 after a fall at home and being down for several hours after that due to weakness. 1. Mechanical fall, acute on chronic debility Lives at home alone, uses walker for ambulation at baseline. Generally has decent functional status, suspect acute weakness is due to UTI as noted below. Denied hitting her head or loss of consciousness, no significant external injuries noted aside from small left leg skin tear, no imaging needed on admission. ? PT/OT/case management following. Accepted to an hospital rehab at [facility], awaiting bed placement. Medically stable for discharge as of 11/24. 2. Rhabdomyolysis, improving ? Creatinine kinase level 2446 on admission. Presumed secondary to being down for several hours after fall. Kidney function normal. Given 1 L bolus in the ED, repeat CK level of 2204 on hospital day 2. Given another 1 L of IV fluids on 11/23, repeat CK level of 1138 on 11/24. Kidney function has remained normal throughout hospitalization. No need for further IV fluids, encourage p.o. intake. No need to check further CK levels. 3. Acute cystitis ? UA with 500 leukocyte esterase, positive nitrites, 4+ bacteria. Urine culture preliminarily growing > 100K E. coli, intermediate sensitivity to Macrobid but otherwise pansensitive. Patient had some delirium on 11/23 and pulled out IV, de-escalated patient to p.o. Keflex at that time. No systemic signs of infection during hospitalization. Continue p.o. Keflex with plan for 7-day course of antibiotics total. 4. Small left leg skin tear, stable ? About 1 inch skin tear noted in the ED. Cleaned and dressed in the ED, bandage in place. Monitor. Chronic medical conditions: ? Obesity: BMI 34 on admit. Complicates hospital course, care and prognosis. ? Hypothyroidism: TSH normal. Continue home Synthroid. ? Hypertension: Continue home nifedipine. ? Hyperlipidemia: Continue home statin. ? GERD: Continue home PPI. DVT prophylaxis: Lovenox CODE STATUS: DNR CCA, DNI Expected disposition: SNF, medically ready for discharge on 11/24, awaiting placement Total clinical time spent by myself addressing the patient's medical issues, reviewing all the data, and collaborating with patient's care team: 35 minutes. Charges/Coding Visit Charges Inpatient E&M: 82712 Subs Hosp L2
--- NOTE | 2023-11-26 13:42 | TREXTCAR_ITS ---
Diet Diet Order/Speech Therapy: 11/23/23 12:46 Diet: Regular - General Food consistency:: Regular Liquid Consistency:: Regular/Thin Is pt able to select menu?: Yes Routine Orders/Code Status Code Status: DNRCC-A (DO NOT INTUBATE) Wound(s) Left Zambrano: Wound Type: Abrasion Therapies Weight Bearing: Full weight bearing Physical Therapy: Eval and Treat Occupational Therapy: Eval and Treat Problem/Diagnosis (1) Fall: Status: Acute Code(s): W19.XXXA - Unspecified fall, initial encounter (2) Rhabdomyolysis: Status: Acute Code(s): M62.82 - Rhabdomyolysis (3) Generalized weakness: Status: Acute Code(s): R53.1 - Weakness (4) Urinary tract infection: Status: Acute Code(s): N39.0 - Urinary tract infection, site not specified Plan Patient is an 83-year-old female who presented [facility] ED on 11/23/2023 after a fall at home and being down for several hours after that due to weakness. Hospital course as noted below. Discharged to SNF in stable condition on 11/25. 1. Mechanical fall, acute on chronic debility Lives at home alone, uses walker for ambulation at baseline. Generally has decent functional status, suspect acute weakness is due to UTI as noted below. Denied hitting her head or loss of consciousness, no significant external injuries noted aside from small left leg skin tear, no imaging needed on admission. ? PT/OT/case management followed. Discharged to SNF in stable condition on 11/25. 2. Rhabdomyolysis, improving ? Creatinine kinase level 2446 on admission. Presumed secondary to being down for several hours after fall. CK level downtrended well with IV fluid resuscitation, last CK level of 1138 on 11/24. Kidney function has remained nor mal throughout hospitalization. Encouraged adequate p.o. intake on discharge. 3. Acute cystitis ? UA with 500 leukocyte esterase, positive nitrites, 4+ bacteria. Urine culture grew > 100K E. coli, intermediate sensitivity to Macrobid but otherwise pansensitive. Patient had some delirium on 11/23 and pulled out IV, de-escalated patient to p.o. Keflex at that time. No further delirium during ho spitalization. No systemic signs of infection during hospitalization. Continue p.o. Keflex with plan for 7-day course of antibiotics total, stop date 11/28. 4. Small left leg skin tear, stable ? About 1 inch skin tear noted in the ED. Cleaned and dressed in the ED, bandage in place. Remained stable during hospitalization. Chronic medical conditions: ? Obesity: BMI 34 on admit. Complicated hospital course, care and prognosis. ? Hypothyroidism: TSH normal. Continue home Synthroid. ? Hypertension: Continue home nifedipine. ? Hyperlipidemia: Continue home statin. ? GERD: Continue home PPI. Total clinical time spent by myself addressing the patient's medical issues, reviewing all the data, and collaborating with patient's care team: 35 minutes. Allergies/Procedures Done in Hospital Allergies No Known Allergies Allergy (Verified 01/12/23 10:21) Procedures: EKG and - (Chest x-ray) Type of Care/Length of Stay Estimated LOS: Convalescent Care Less Than 30 days Type of Care Needed: Skilled Rehab Potential: Fair Prognosis: Fair Additional Orders/Day of Discharge H&P will serve as current which was dated: 11/23/23 Day of Discharge: 11/26/23 Discharge Plan Admission Admit Date/Time: 11/23/23 11:42 Primary Reason for Your Visit: Found down at home after fall Attending Provider: Kelby Aguilar Primary Care Provider: Carl Roberts Discharge Orders/Prescriptions Prescriptions: New tramadol 50 mg Tablet 50 mg PO BID PRN PRN (Reason: Pain Score 4-10) Qty: 0 0RF cephalexin 500 mg Capsule 500 mg PO Q8 3 Days Qty: 0 0RF Continued multivitamin Tablet 1 tab PO DAILY levothyroxine 88 mcg tablet 88 mcg PO MOTUWETHFRSA Patient Comments: TAKE ONE TABLET BY MOUTH WEDNESDAY THROUGH WEDNESDAY AND NONE ON WEDNESDAY. omeprazole 20 mg Capsule,Delayed Release(Dr/Ec) 20 mg PO DAILY lovastatin 20 mg tablet 40 mg PO DAILY Patient Comments: TAKE 1 TABLET BY MOUTH DAILY AT BEDTIME. FOR CHOLESTEROL. calcium carbonate-vitamin D3 [Calcium 500 + D] 500 mg(1,250mg) -200 unit Tablet 1 tab PO DAILY nifedipine 30 mg tablet extended release 24hr 30 mg PO DAILY Discontinued hydrocodone-acetaminophen [hydrocodone-acetaminophen] 5-325 mg tablet 1 tab PO Q6H PRN PRN (Reason: Pain) 3 Days Qty: 10 0RF Referrals / Follow Up: Carl Roberts MD [Primary Care Provider] - Disposition Disposition (needs filled in before D/C Order can be placed): [facility]
--- NOTE | 2023-11-26 13:49 | PCM.DC.SUM ---
Providers Date of Admission: 11/23/23 Date of Discharge: 11/26/23 Primary Care Physician: Dr. Carl Roberts MD Reason For Visit: FALL WITH WEAKNESS, RHABOMYOLYSIS Diagnosis Discharge Diagnosis (1) Fall: Status: Acute Code(s): W19.XXXA - Unspecified fall, initial encounter (2) Rhabdomyolysis: Status: Acute Code(s): M62.82 - Rhabdomyolysis (3) Generalized weakness: Status: Acute Code(s): R53.1 - Weakness (4) Urinary tract infection: Status: Acute Code(s): N39.0 - Urinary tract infection, site not specified Medications at Discharge Home Medications calcium carbonate 500 mg-vitamin D3 5 mcg (200 unit) tablet (Calcium 500 + D) 1 tab PO DAILY SUPPLEMETN 05/09/21 levothyroxine 88 mcg tablet 88 mcg PO MOTUWETHFRSA Thyroid 05/09/21 lovastatin 20 mg tablet 40 mg PO DAILY CHOLESTEROL 05/09/21 multivitamin 1 tab PO DAILY SUPPLEMENT 05/09/21 omeprazole 20 mg capsule,delayed release 20 mg PO DAILY GERD 05/09/21 nifedipine 30 mg tablet,extended release 24 hr 30 mg PO DAILY 01/12/23 cephalexin 500 mg capsule 500 mg PO Q8 3 days #0 caps 11/26/23 tramadol 50 mg tablet 50 mg PO BID PRN PRN Pain Score 4-10 #0 tabs 11/26/23 Hospital Course Operations None Procedures EKG and - (Chest x-ray) Summary of Care Provided Minutes Spent on Discharge: 35 Hospital Course: Patient is an 83-year-old female who presented [facility] ED on 11/23/2023 after a fall at home and being down for several hours after that due to weakness. Hospital course as noted below. Discharged to SNF in stable condition on 11/25. 1. Mechanical fall, acute on chronic debility Lives at home alone, uses walker for ambulation at baseline. Generally has decent functional status, suspect acute weakness is due to UTI as noted below. Denied hitting her head or loss of consciousness, no significant external injuries noted aside from small left leg skin tear, no imaging needed on admission. ? PT/OT/case management followed. Discharged to SNF in stable condition on 11/25. 2. Rhabdomyolysis, improving ? Creatinine kinase level 2446 on admission. Presumed secondary to being down for several hours after fall. CK level downtrended well with IV fluid resuscitation, last CK level of 1138 on 11/24. Kidney function has remained normal throughout hospitalization. Encouraged adequate p.o. intake on discharge. 3. Acute cystitis ? UA with 500 leukocyte esterase, positive nitrites, 4+ bacteria. Urine culture grew > 100K E. coli, intermediate sensitivity to Macrobid but otherwise pansensitive. Patient had some delirium on 11/23 and pulled out IV, de-escalated patient to p.o. Keflex at that time. No further delirium during hospitalization. No systemic signs of infection during hospitalization. Continue p.o. Keflex with plan for 7-day course of antibiotics total, stop date 11/28. 4. Small left leg skin tear, stable ? About 1 inch skin tear noted in the ED. Cleaned and dressed in the ED, bandage in place. Remained stable during hospitalization. Chronic medical conditions: ? Obesity: BMI 34 on admit. Complicated hospital course, care and prognosis. ? Hypothyroidism: TSH normal. Continue home Synthroid. ? Hypertension: Continue home nifedipine. ? Hyperlipidemia: Continue home statin. ? GERD: Continue home PPI. Total clinical time spent by myself addressing the patient's medical issues, reviewing all the data, and collaborating with patient's care team: 35 minutes. Physical Exam Const alert, oriented x3 and no apparent distress Constitutional Narrative: Obese. General Appearance: cooperative and comfortable HEENT normocephalic, head/scalp atraumatic, hearing grossly normal bilaterally and nasal mucous membranes and turbinates normal Eyes PERRL, EOMs intact bilaterally and conjunctivae normal Neck full ROM Chest inspection of chest normal Resp normal respiratory effort and no use of accessory muscles Resp Narrative: Good air movement bilaterally, no wheezing noted in upper airways. No crackles noted. Cardio regular rate, regular rhythm, no murmurs and peripheral pulses 2+ throughout GI normal to inspection, nondistended, normoactive bowel sounds, soft to palpation, non-tender and non-distended Back/Spine normal ROM Extremity normal to inspection, full ROM and no pedal edema Skin Skin Narrative: Skin tear of left lower leg noted in ED, was cleaned and dressed by ED staff, bandage in place. Neuro moves all extremities and no focal motor deficits Speech: speech normal Psych mental status grossly normal Weight / BMI Weight Weight: 79.7 kg Body Mass Index (BMI) 34.3 ABG / Lab / Microbiology Data 11/26/23 08:31 11/26/23 08:31 Laboratory: Laboratory Results - last 24 hr 11/26/23 08:31: WBC 6.1, RBC 3.61 L, Hgb 11.2 L, Hct 35.4 L, MCV 98.1, MCH 31.0, MCHC 31.6 L, RDW Std Deviation 47.1 H, RDW Coeff of Fouzia 13.2, Plt Count 215, MPV 10.3, Sodium 135 L, Potassium 3.3 L, Chloride 100, Carbon Dioxide 27.0, Anion Gap 8, BUN 12, Creatinine 0.70, Estim Creat Clear Calc 48.91, Est GFR (MDRD) Af Amer 102, Est GFR (MDRD) Non-Af 84, BUN/Creatinine Ratio 17.1, Glucose 117 H, Calcium 8.6 Microbiology: Microbiology 11/23/23 09:40 Urine, Clean Catch Urine Culture - Final Presumptive E. coli Meaningful Use Info Meaningful Use Meaningful Use Diagnoses (Choose all that apply): None applicable Ischemic Stroke Statin Dosing Therapy Reference: STATIN DOSE THERAPY REFERENCE: * Patients > 75 years receive moderate or high dose statin therapy. * Patients 75 years or YOUNGER should receive HIGH intensity statin dose unless contraindicated. You will be required to document reason for non-treatment if statin daily dose does not meet guidelines. HIGH DOSE STATIN THERAPY DAILY Atorvastatin > than or = to 40 mg Rosuvastatin > than or = to 20 mg Amlodipine + Atorvastatin > than or = to 2.5/40 mg Ezetimibe + Simvastatin 10/80 mg Simvastatin 80mg Discharge Plan Admission Admit Date/Time: 11/23/23 11:42 Primary Reason for Your Visit: Found down at home after fall Attending Provider: Kelby Aguilar Primary Care Provider: Carl Roberts Discharge Orders/Prescriptions Prescriptions: New tramadol 50 mg Tablet 50 mg PO BID PRN PRN (Reason: Pain Score 4-10) Qty: 0 0RF cephalexin 500 mg Capsule 500 mg PO Q8 3 Days Qty: 0 0RF Continued multivitamin Tablet 1 tab PO DAILY levothyroxine 88 mcg tablet 88 mcg PO MOTUWETHFRSA Patient Comments: TAKE ONE TABLET BY MOUTH WEDNESDAY THROUGH WEDNESDAY AND NONE ON WEDNESDAY. omeprazole 20 mg Capsule,Delayed Release(Dr/Ec) 20 mg PO DAILY lovastatin 20 mg tablet 40 mg PO DAILY Patient Comments: TAKE 1 TABLET BY MOUTH DAILY AT BEDTIME. FOR CHOLESTEROL. calcium carbonate-vitamin D3 [Calcium 500 + D] 500 mg(1,250mg) -200 unit Tablet 1 tab PO DAILY nifedipine 30 mg tablet extended release 24hr 30 mg PO DAILY Discontinued hydrocodone-acetaminophen [hydrocodone-acetaminophen] 5-325 mg tablet 1 tab PO Q6H PRN PRN (Reason: Pain) 3 Days Qty: 10 0RF Referrals / Follow Up: Carl Roberts MD [Primary Care Provider] - Disposition Disposition (needs filled in before D/C Order can be placed): [facility] Charges/Coding Visit Charges Inpatient E&M: 72321 Disch Hosp >30min
--- NOTE | 2023-11-26 14:05 | CASEMGMT ---
TC to [facility], spoke with Lorena, she is aware to cancel HH referral as pt will dc to SNF.
--- NOTE | 2023-11-26 14:18 | CASEMGMT ---
Pt was approved to go to [facility]'s transitional unit today by insurance. SW let pt know, she is agreeable to go to [facility] today. She would prefer to go by wheelchair. Orders faxed to [facility](as they do not have access to [facility]). Hospital exemption not needed. SW set up a 5:30pm wheelchair van transport. SW let pt know, bedside RN know(she will let [place] know), and called daughter Deisy to let her know time of pickup and precert attained. SW did also let daughter know that pt may get a bill for transport. Daughter states understanding. No further needs, pt to [facility], skilled, today. KARYN Gil
[2023-11-26 14:22] VITALS: BP 127/54; PULSE 97; RESP 18; TEMP 36.6; O2SAT 96
--- NOTE | 2023-11-26 14:22 | PHA.DC.MR.R ---
Pharmacy PA Med Reconciliation Pharmacy Service has performed discharge medication reconciliation for this patient. The patient's discharge medication list was reviewed for discrepancies and discrepancies were resolved. Medications at Discharge Home Medications calcium carbonate 500 mg-vitamin D3 5 mcg (200 unit) tablet (Calcium 500 + D) 1 tab PO DAILY SUPPLEMETN 05/09/21 levothyroxine 88 mcg tablet 88 mcg PO MOTUWETHFRSA Thyroid 05/09/21 lovastatin 20 mg tablet 40 mg PO DAILY CHOLESTEROL 05/09/21 multivitamin 1 tab PO DAILY SUPPLEMENT 05/09/21 omeprazole 20 mg capsule,delayed release 20 mg PO DAILY GERD 05/09/21 nifedipine 30 mg tablet,extended release 24 hr 30 mg PO DAILY 01/12/23 cephalexin 500 mg capsule 500 mg PO Q8 3 days #0 caps 11/26/23 tramadol 50 mg tablet 50 mg PO BID PRN pain 30 days #60 tabs 11/26/23
[2023-11-26 20:00] VITALS: BP 114/89; PULSE 94; RESP 16; TEMP 36.8; O2SAT 95
[2023-11-26 20:37] VITALS: BP 139/72; PULSE 115; RESP 18; TEMP 37.1; O2SAT 97
== END 2023-11-26 20:45 | DRG 884 ==
LOC: ED 11:26 → MS3 12:19
PROVIDERS: Admitting Provider Hospitalist; Emergency Provider Emergency Medicine; PCP Family Medicine; Visit Provider Hospitalist
DX: R54 Age-related physical debility (principal); M62.82 Rhabdomyolysis; N30.00 Acute cystitis without hematuria; I10 Essential (primary) hypertension; E03.9 Hypothyroidism, unspecified; K21.9 Gastro-esophageal reflux disease without esophagitis; E78.00 Pure hypercholesterolemia, unspecified; W19.XXXA Unspecified fall, initial encounter; S81.812A Laceration without foreign body, left lower leg, initial encounter; E66.9 Obesity, unspecified; B96.20 Unspecified Escherichia coli [E. coli] as the cause of diseases classified elsewhere; Z86.16 Personal history of COVID-19; Z87.891 Personal history of nicotine dependence; Z68.36 Body mass index [BMI] 36.0-36.9, adult
CPT/HCPCS: 36415; 71045; 80048; 81001; 82550; 84443; 85025; 85027; 87077; 87086; 87088; 87186; 93005; 97162; 97166; 97530; 97535; 99285; J7030; J7120; P9612; A4216

== ENCOUNTER 2024-01-20 09:57 | Inpatient (IN) | payer MEDICARE, MEDICAID, SELFPAY ==
[2024-01-20] VITALS (11 sets, daily range): BP systolic 103–145; BP diastolic 53–100; PULSE 72–104; RESP 16–24; TEMP 36.6–36.9; O2SAT 93–96; BMI 33.4; BMI 33.3
--- NOTE | 2024-01-20 10:36 | EKG12_ITS ---
Test Reason : Blood Pressure : / mmHG Vent. Rate : 100 BPM Atrial Rate : 100 BPM P-R Int : 140 ms QRS Dur : 136 ms QT Int : 376 ms P-R-T Axes : 055 119 013 degrees QTc Int : 485 ms Normal sinus rhythm Right bundle branch block Left posterior fascicular block Bifascicular block Abnormal ECG Confirmed by STONEY MOREJON, ANDREW ([id number]), online content editor KORI JULES ([id number]) on 01/24/2024 11:33:53 AM Referred By: Confirmed By:ANDREW LUA MD
--- NOTE | 2024-01-20 10:36 | EX.ED.DYSGE1 ---
HPI History of Present Illness Chief Complaint: Weakness Informant: patient and family Onset/Context/Timing Onset: Today Narrative Narrative: Patient presents secondary to increased weakness today. Patient normally ambulates with a walker. She states that she was more weak than normal when she got up from bed this morning and was concerned that she was going to fall. Family states when they fed her this morning she was very shaky and spilled her cup. Normally she can feed her cell without difficulty. She states she did have some left upper arm pain near her shoulder today that seems to be resolved at this time. She denies pain into the chest or shortness of breath. She does report frequent UTIs and states she just finished an antibiotic for a kidney infection. [facility] Medical History Chronic pain Rheumatoid arthritis Former smoker High cholesterol GERD (gastroesophageal reflux disease) Hypothyroidism Hypertension Home Medications ?Medication ?Instructions ?Recorded ?Last Taken ?Type calcium carbonate 500 mg-vitamin 1 tab PO DAILY SUPPLEMETN 05/09/21 05/08/21 History D3 5 mcg (200 unit) tablet (Calcium 500 + D) levothyroxine 88 mcg tablet 88 mcg PO MOTUWETHFRSA Thyroid 05/09/21 Unknown History lovastatin 20 mg tablet 40 mg PO DAILY CHOLESTEROL 05/09/21 05/09/21 History multivitamin 1 tab PO DAILY SUPPLEMENT 05/09/21 05/09/21 History omeprazole 20 mg capsule,delayed 20 mg PO DAILY GERD 05/09/21 05/09/21 History release nifedipine 30 mg tablet,extended 30 mg PO DAILY 01/12/23 Unknown History release 24 hr cephalexin 500 mg capsule 500 mg PO Q8 3 days #0 caps 11/26/23 Unknown Rx tramadol 50 mg tablet 50 mg PO BID PRN pain 30 days #60 11/26/23 Unknown Rx tabs Allergy/AdvReac Type Severity Reaction Status Date / Time No Known Allergies Allergy Verified 01/20/24 09:58 Social History household members: children Smoking Status: Former smoker alcohol intake: never substance use type: does not use ROS ROS ED Constitutional Constitutional ED: Denies chills or fever(s) ENT ENT ED: Denies rhinorrhea or sore throat Cardiovascular Cardiovascular: Denies chest pain or palpitations Respiratory/Chest Respiratory/Chest: Denies cough or dyspnea Gastrointestinal Gastrointestinal: Denies abdominal pain, nausea or vomiting Genitourinary Genitourinary ED: Reports other Details: Urine dark in color ; Denies dysuria Musculoskeletal Musculoskeletal: Reports extremity pain; Denies back pain Integumentary Denies Abrasions or rash Neurologic Neurologic: Reports weakness; Denies headache(s) Psychiatric Psychiatric: Denies anxiety or depression Allergic/Immunologic Allergic/Immunologic ED: Denies lip swelling or urticaria EXAM Physical Exam Const Vital Signs: 01/20/24 09:58 01/20/24 10:14 01/20/24 10:14 Temperature 97.8 F 98.1 F Temperature Source Temporal Pulse Rate 104 H 83 Respiratory Rate 18 16 Respiratory Effort Normal Non-Labored Respiratory Pattern Normal Blood Pressure 139/59 H 154/89 H Blood Pressure Mean 85 110 Pulse Ox 93 98 Oxygen Delivery Method Room Air 01/20/24 11:49 Temperature 98.1 F Temperature Source Oral Pulse Rate 93 Respiratory Rate 16 Respiratory Effort Respiratory Pattern Blood Pressure 115/95 H Blood Pressure Mean 101 Pulse Ox 94 Oxygen Delivery Method Room Air Positive well nourished and well developed General Appearance ED: well developed HEENT Reports moist mucous membranes Eyes EOMs intact bilaterally Chest Wall inspection of chest normal and palpation of chest normal Resp normal respiratory effort and clear to auscultation bilaterally Cardio regular rate and regular rhythm Heart Sounds: murmur GI normal to inspection, nondistended, normoactive bowel sounds and non-tender Extremity normal to inspection Extremity Narrative: No reproducible tenderness over the left upper extremity. Patient able to hold both arms up in the bed without difficulty. 3+ edema bilateral lower extremities, symmetric. Patient states this is chronic and at baseline. Neuro oriented x3 Neuro Narrative: No focal neurologic deficit. Psych mental status grossly normal Skin no rashes or lesions noted MDM MDM MDM Narrative Medical decision making narrative: Patient placed on hospital monitor. IV line initiated. Labwork obtained to evaluate for leukocytosis, anemia, and electrolyte derangement. Urinalysis obtained to evaluate for infection/hematuria. EKG obtained to evaluate for cardiac arrhythmia/ischemia. Chest x-ray obtained to evaluate for acute lung pathology, cardiac size, or mediastinal abnormality. History & Record Review Discussion w/independent historian: Patient and Family Lab Data Attestation: I reviewed the patient's lab results. Labs: Laboratory Results - last 24 hr 01/20/24 01/20/24 11:00 11:10 WBC 7.6 RBC 3.14 L Hgb 9.5 L Hct 30.7 L MCV 97.8 MCH 30.3 MCHC 30.9 L RDW Std Deviation 57.1 H RDW Coeff of Fouzia 16.0 H Plt Count 257 MPV 9.3 Immature Gran % (Auto) 0.400 Neut % (Auto) 81.1 H Lymph % (Auto) 11.6 L Harvey % (Auto) 6.6 Eos % (Auto) 0.0 Baso % (Auto) 0.3 Absolute Neuts (auto) 6.2 Absolute Lymphs (auto) 0.88 Nucleated RBC % 0 Sodium 135 L Potassium 3.8 Chloride 100 Carbon Dioxide 27.0 Anion Gap 8 BUN 13 Creatinine 0.66 Estim Creat Clear Calc 48.20 Est GFR (MDRD) Af Amer 109 Est GFR (MDRD) Non-Af 90 BUN/Creatinine Ratio 19.6 Glucose 116 H Calcium 9.1 Troponin I High Sens 3264 H* Urine Color Yellow Urine Clarity Clear Urine pH 7.0 Ur Specific [place] 1.010 Urine Protein 30 H Urine Glucose (UA) Normal Urine Ketones Negative Urine Occult Blood 10 H Urine Nitrite Negative Urine Bilirubin Negative Urine Urobilinogen 1 H Ur Leukocyte Esterase 100 H Urine RBC 0-5 SEEN Urine WBC 5-10 SEEN Ur Squamous Epith Cells 0 SEEN Urine Bacteria 2+ Urine Mucus 0 SEEN Radiography Chest X-Ray - ED: 1 View, Read by ED Physician and - (Chronic changes at the left base with mild cardiomegaly.) Diagnostic Testing: Clinical Impression(s) from Imaging Studies Chest X-Ray 01/20/24 11:15 IMPRESSION: Stable examination suggestive of scarring. Electronically Signed: Sixto Leija MD at 12:12 EDT , EKG Initial EKG: Attestation: I personally reviewed and interpreted this EKG as follows: Interpretation: Sinus Rhythm (Sinus at 100 with a bifascicular block. EKG appears unchanged when compared to prior study of 11/23/2023.) Treatment and Re-Evaluation :: CBC was normal white count 7.6 with a hemoglobin of 9.5. This is slightly down from her prior values. Differential does reveal 81% neutrophils. Chemistry studies are largely unremarkable. Troponin is elevated at 3264. Urinalysis does reveal 2+ bacteria with 5-10 white cells but no nitrites. Patient has urine sent for culture and is given a dose of Rocephin. Portable chest x-ray per my interpretation reveals mild cardiomegaly with chronic changes of the left base. Radiology interpretation reviewed and agrees. EKG is sinus rhythm with a bifascicular block, unchanged when compared to prior. On repeat evaluation patient is comfortable and denies any chest pain or shortness of breath at this time. She has no left arm pain. She is given a dose of aspirin. I did speak with her family at bedside. She had previously has been seen by a law office assistant at [facility] for surgical clearance, but would prefer to remain here at [facility] for her care. I will speak with cardiology as well as hospitalist. Discharge Plan Triage Chief Complaint: Weakness ED Provider: Judi Mejias Dx/Rx/DC Orders Clinical Impression: Non-ST elevation LA (NSTEMI), UTI (urinary tract infection) Prescriptions: No Action multivitamin Tablet 1 tab PO DAILY levothyroxine 88 mcg tablet 88 mcg PO MOTUWETHFRSA Patient Comments: TAKE ONE TABLET BY MOUTH WEDNESDAY THROUGH WEDNESDAY AND NONE ON WEDNESDAY. omeprazole 20 mg Capsule,Delayed Release(Dr/Ec) 20 mg PO DAILY lovastatin 20 mg tablet 40 mg PO DAILY Patient Comments: TAKE 1 TABLET BY MOUTH DAILY AT BEDTIME. FOR CHOLESTEROL. calcium carbonate-vitamin D3 [Calcium 500 + D] 500 mg(1,250mg) -200 unit Tablet 1 tab PO DAILY nifedipine 30 mg tablet extended release 24hr 30 mg PO DAILY cephalexin 500 mg Capsule 500 mg PO Q8 3 Days Qty: 0 0RF tramadol 50 mg tablet 50 mg PO BID PRN (Reason: pain) 30 Days Qty: 60 0RF Primary Care Provider: Carl Roberts Referrals: Carl Roberts MD [Primary Care Provider] - Print Language: Finnish Disposition Disposition: Acute Care Hospital [facility]
--- NOTE | 2024-01-20 11:15 | RAD_ITS ---
STUDY: X-RAY CHEST REASON FOR EXAM: Female, 83 years old. Pain TECHNIQUE: Single AP portable view of the chest. COMPARISON: Comparison is made with prior study November 23, 2023. FINDINGS: EKG electrodes are seen. Stable increased interstitial markings in both lungs suggestive of scarring. There is no demonstrated pleural abnormality. There is mild cardiac enlargement. Normal mediastinum and cristy. Normal visualized pulmonary arteries. Normal visualized aortic arch and descending thoracic aorta. There are diffuse degenerative changes of the visualized thoracic spine. Normal visualized ribs, clavicles, and shoulders. Large hiatal hernia. RAD/Chest 1 View (Portable) IMPRESSION: Stable examination suggestive of scarring. Electronically Signed: Sixto Leija MD at 12:12 EDT ,
[2024-01-20 11:18] LABS: Mucous, Urine 0 SEEN /hpf (<or=2+); Squamous Epithelial Cells - UA 0 SEEN /hpf (5-10)
[2024-01-20 11:21] LABS: Color, Urine Yellow (Yellow); Glucose, Dipstick Normal (Normal); Ketone-Dipstick Negative (Negative); Leukocyte Esterase-Dipstick 100 /ul (Negative); Nitrite-Dipstick Negative (Negative); Occult Blood-Urine 10 /ul (Negative); Protein-Dipstick 30 mg/dl (Negative); Urine Bilirubin Dipstick Negative (Negative); Urine Clarity Clear (Clear); Urine Urobilinogen 1 mg/dl (Normal)
[2024-01-20 11:24] LABS: Absolute Lymphocyte Count 0.88 X10^3/uL (0.83-4.51); Absolute Neutrophil Count 6.2 X10^3/uL (2.0-7.7); Basophil# 0.02 X10^3/uL; Basophil% 0.3 % (0-1); Hematocrit 30.7 % (37-47); Hemoglobin 9.5 g/dL (12.0-15.0); Lymphocyte # 0.88 X10^3/ul (0.83-4.51); Lymphocyte % 11.6 % (19-41); Mean Corp Hgb Conc 30.9 g/dL (32-36); Mean Corpuscular Hgb 30.3 pg (27.0-32.0); Mean Corpuscular Volume 97.8 fL (81-99); Mean Platelet Vol. 9.3 fl (6.2-12.0); Monocyte% 6.6 % (0-10); NRBC Flagged by Analyzer 0 % (0-5); Neutrophil # 6.16 X10^3/uL (2.7-7.7); Neutrophil % 81.1 % (47-70); Platelet Count 257 K/mm3 (150-450); RBC Distribution Width SD 57.1 fl (35.1-43.9); Red Blood Count 3.14 M/mm3 (4.2-5.4); White Blood Count 7.6 K/mm3 (4.4-11.0)
[2024-01-20 11:30] LABS: Bacteria 2+ /hpf (None Seen); Red Blood Cells-Urine 0-5 SEEN /hpf (0-5); White Blood Cells 5-10 SEEN /hpf (0-5)
[2024-01-20 11:59] LABS: Anion Gap 8 (5-15); BUN 13 mg/dL (7-18); BUN/Creat Ratio 19.6 RATIO (10-20); Calcium,Total 9.1 mg/dL (8.5-10.1); Chloride 100 mmol/L (98-107); Creatinine, Serum 0.66 mg/dL (0.55-1.02); EST Glomerular Filtration Rate 90 mL/min (>60); Est Glom Filt Rate - Afr Amer 109 mL/min (>60); Glucose 116 mg/dL (74-106); Potassium 3.8 mmol/L (3.5-5.1); Sodium Level 135 mmol/L (136-145); Troponin-I HS (w/2H Reflex) 3264 pg/mL (3.0-54.0)
--- NOTE | 2024-01-20 11:59 | ED.RN ---
LAB CALLED [place] [id number]. DR MAI
[2024-01-20] MEDS: Ceftriaxone 1 GM/50 ML BAG IV (12:40)
[2024-01-20] MEDS: Aspirin 81 MG TAB.CHEW 324 MG PO (12:40)
--- NOTE | 2024-01-20 12:55 | PCM.HP.STD ---
HPI - General General Date of Admission: 01/20/24 Date of Service: 01/20/24 Chief Complaint: weakness HPI Narrative STEFANO WASHINGTON, is a 83 F with a PMH who presents via the ED with a complaint of increased weakness,. She is normally able to ambulate with a walker and feed herself, but she felt much weaker than normal today. She denied any fever, chills, cough, palpitations, dizziness, nausea, vomiting or any other symptoms,. She also had left shoulder pain which went down her left arm. She was recently treated for UTI, but says her urine is still dark and smells offensive. Vitals in the ED were BP of 103/53, MA of 95, RR of 18 and oxygen sats of 94% on room air. CBC showed hemoglobin of 9.5 with WBC of 7.6 and platelets of 257. Chemistry showed sodium of 135, potassium of 3.8 and Cr of 0.66. Initial troponin was 3264. EKG showed no acute ST changes. She is being admitted to be managed for nonstemi. She was taken to the soap slabber from the ED. Cardiac cath showed evidence of Takotsubo cardiomyopathy. [facility] Medical History Chronic pain Rheumatoid arthritis Former smoker High cholesterol GERD (gastroesophageal reflux disease) Hypothyroidism Hypertension Home Medications ?Medication ?Instructions ?Recorded ?Last Taken ?Type calcium carbonate 500 mg-vitamin 1 tab PO DAILY SUPPLEMENT 05/09/21 05/08/21 History D3 5 mcg (200 unit) tablet (Calcium 500 + D) levothyroxine 88 mcg tablet 88 mcg PO MOTUWETHFRSA Thyroid 05/09/21 Unknown History multivitamin 1 tab PO DAILY SUPPLEMENT 05/09/21 05/09/21 History omeprazole 20 mg capsule,delayed 20 mg PO DAILY GERD 05/09/21 05/09/21 History release nifedipine 30 mg tablet,extended 30 mg PO DAILY BLOOD PRESSURE 01/12/23 Unknown History release 24 hr tramadol 50 mg tablet 50 mg PO BID PRN pain 30 days #60 11/26/23 Unknown Rx tabs furosemide 20 mg tablet 20 mg PO DAILY PRN swelling 01/20/24 Unknown History lovastatin 40 mg tablet 40 mg PO QHS CHOLESTEROL 01/20/24 Unknown History Allergy/AdvReac Type Severity Reaction Status Date / Time nitrofurantoin (From Allergy Mild Vomiting Verified 01/20/24 15:49 Macrobid) Social History household members: children Smoking Status: Former smoker alcohol intake: never substance use type: does not use ROS Review of Systems ROS Unobtainable: Denies due to encephalopathy Constitutional Constitutional: Reports fatigue, malaise and weakness; Denies anorexia or fever(s) Eyes Eyes: Denies change in vision ENT HEENT: Denies dysphagia or headache(s) Cardiovascular Cardiovascular: Denies chest pain, dyspnea on exertion, edema, lightheadedness, orthopnea, palpitations, paroxysmal nocturnal dyspnea, rapid heart rate or syncope Respiratory/Chest Respiratory/Chest: Denies cough, dyspnea, productive cough, shortness of breath at rest or shortness of breath with exertion Gastrointestinal Gastrointestinal: Denies abdominal pain, constipation, diarrhea, nausea or vomiting Genitourinary Genitourinary: Denies burning urination, dysuria or nocturia Musculoskeletal Musculoskeletal: Denies arthralgias Neurologic Neurologic: Denies confusion, dizziness, focal weakness, headache(s) or numbness Psychiatric Psychiatric: Denies anxiety or depression Endocrine Endocrinology: Denies change in body appearance Vital Signs Vital Signs Vital Signs: 01/20/24 09:58 01/20/24 10:14 01/20/24 10:14 Temperature 97.8 F 98.1 F Temperature Source Temporal Pulse Rate 104 H 83 Respiratory Rate 18 16 Respiratory Effort Normal Non-Labored Respiratory Pattern Normal Blood Pressure 139/59 H 154/89 H Blood Pressure Mean 85 110 Pulse Ox 93 98 Oxygen Delivery Method Room Air 01/20/24 11:49 Temperature 98.1 F Temperature Source Oral Pulse Rate 93 Respiratory Rate 16 Respiratory Effort Respiratory Pattern Blood Pressure 115/95 H Blood Pressure Mean 101 Pulse Ox 94 Oxygen Delivery Method Room Air Weight Weight: 171 lb Body Mass Index (BMI) 33.4 Physical Exam Const alert, oriented x3 and no apparent distress General Appearance: cooperative and uncooperative HEENT normocephalic, head/scalp atraumatic, hearing grossly normal bilaterally and moist oral mucous membranes Mouth: oral and palatal mucosa normal Eyes PERRL, EOMs intact bilaterally and conjunctivae normal Neck no lymphadenopathy and supple Resp Resp Narrative: diminished breath sounds bibasally, no wheezes or crackles. On room air. Cardio regular rate, regular rhythm, S1 normal heart sound, S2 normal heart sound and no murmurs GI normal to inspection, nondistended, normoactive bowel sounds, soft to palpation, non-tender and non-distended Extremity normal to inspection, full ROM and no clubbing, cyanosis or edema Neuro oriented x3, CN's II-XII intact bilaterally, moves all extremities and no focal motor deficits Sensorium / Orientation: awake and alert Motor Exam: strength 5/5 throughout Psych affect normal Results Lab / Micro Data 01/20/24 11:00 01/20/24 11:00 Labs: Laboratory Results - last 24 hr 01/20/24 11:00: WBC 7.6, RBC 3.14 L, Hgb 9.5 L, Hct 30.7 L, MCV 97.8, MCH 30.3, MCHC 30.9 L, RDW Std Deviation 57.1 H, RDW Coeff of Fouzia 16.0 H, Plt Count 257, MPV 9.3, Immature Gran % (Auto) 0.400, Neut % (Auto) 81.1 H, Lymph % (Auto) 11.6 L, Bates % (Auto) 6.6, Eos % (Auto) 0.0, Baso % (Auto) 0.3, Absolute Neuts (auto) 6.2, Absolute Lymphs (auto) 0.88, Nucleated RBC % 0, Sodium 135 L, Potassium 3.8, Chloride 100, Carbon Dioxide 27.0, Anion Gap 8, BUN 13, Creatinine 0.66, Estim Creat Clear Calc 48.20, Est GFR (MDRD) Af Amer 109, Est GFR (MDRD) Non-Af 90, BUN/Creatinine Ratio 19.6, Glucose 116 H, Calcium 9.1, Troponin I High Sens 3264 H* 01/20/24 11:10: Urine Color Yellow, Urine Clarity Clear, Urine pH 7.0, Ur Specific [place] 1.010, Urine Protein 30 H, Urine Glucose (UA) Normal, Urine Ketones Negative, Urine Occult Blood 10 H, Urine Nitrite Negative, Urine Bilirubin Negative, Urine Urobilinogen 1 H, Ur Leukocyte Esterase 100 H, Urine RBC 0-5 SEEN, Urine WBC 5-10 SEEN, Ur Squamous Epith Cells 0 SEEN, Urine Bacteria 2+, Urine Mucus 0 SEEN Imaging Radiology Impression Chest X-Ray 01/20/24 11:15 IMPRESSION: Stable examination suggestive of scarring. Electronically Signed: Sixto Leija MD at 12:12 EDT , Assessment & Plan Assessment/Plan (1) Non-ST elevation [place] (NSTEMI): PLAN: Plan #Nonstemi admitted with a complaint of increased weakness and lethargy on admission, initial troponin was 3264. Troponin trended down to 2756. She was taken to the soap slabber which showed nonobstructive coronary arteries and evidence of Takotsubo cardiomyopathy. Per cardiology to DC her nifedipine. P.o. aspirin. 2D echo ordered. Cardiology on board. #Hypertension: on nifedipine. Per cardiology, nifedipine discontinued. Started on PO carvedilol 3.125mg bid. #GERD: on PPI #Abnormal urinalysis: was recently treated for UTI and completed her antibiotic course (Keflex). urine cultures Previous urine cultures positive for E coli. will start on IV ceftriaxone pending urine cultures #Hypothyroidism:on synthroid. DVT prophylaxis: SCDs Code status: DNRCCA no intubation Patient counseled extensively about different types of CODE STATUS including full code, DNR CCA and DNR CCA. Patient elects to be DNRCCA no intubation. Total [id number] time 17 minutes. Charges/Coding Visit Charges Inpatient E&M: 09015 Init Hosp L3 Procedures Hospitalists Procedures: 07648 Advncd Care Plan 30 Min
--- NOTE | 2024-01-20 13:16 | CON.PCM.CA_ITS ---
Assessment & Plan Assessment/Plan (1) Non-ST elevation [place] (NSTEMI): PLAN: She presents with atypical presentation and is noted to have a non-ST elevation myocardial infarction. My recommendation is for us to proceed with a left heart catheterization to assess her coronary anatomy and then further recommendations will be made. I discussed the above with the patient and her relatives he understands and agrees to proceed. Addendum: Cardiac catheterization demonstrated minimal left main disease, mild LAD disease, minimal RCA disease, Left ventricular systolic dysfunction with anterior apical hypokinesis consistent with Takotsubo cardiomyopathy. Will start beta-amy DC nifedipine Echo to formally assess LV function (2) Aortic stenosis: PLAN: She does appear to clinically have at least moderate aortic stenosis. This will be reevaluated with an echocardiogram during this visit. (3) Hypertension: PLAN: Her blood pressure appears to be under fairly decent control. HPI Consult Data Date of Consult: 01/20/24 HPI Narrative HPI Narrative: STEFANO WASHINGTON, is a 83 F who presents to the emergency room with increased weakness. According to the family member she is able to walk and feed herself usually but she felt weaker than usual today. She was recently treated for urinary tract infection. She also had been admitted to [facility] in [place] where she underwent an evaluation with an echocardiogram which demonstrated preserved ejection fraction of 59% plus minus normal right ventricular size and function trileaflet aortic valve with restricted cusp separation with a peak gradient of 31 mmHg and a mean gradient of 18 mmHg. The mitral valve was noted to be normal. She was told that it was not yet time to have her aortic valve fixed. This was in March 2023. This morning she also had developed some left arm discomfort but no chest discomfort. She denied any dizziness near syncope or syncope. She has had some pedal edema. In the emergency room she was noted to be in a right bundle branch block and left anterior fascicular block cardiac troponin enzymes were obtained and were noted to be elevated at 3200 and cardiology was called for further evaluation and management. [facility] Medical History Chronic pain Rheumatoid arthritis Former smoker High cholesterol GERD (gastroesophageal reflux disease) Hypothyroidism Hypertension Home Medications ?Medication ?Instructions ?Recorded ?Last Taken ?Type calcium carbonate 500 mg-vitamin 1 tab PO DAILY SUPPLEMENT 05/09/21 05/08/21 History D3 5 mcg (200 unit) tablet (Calcium 500 + D) levothyroxine 88 mcg tablet 88 mcg PO MOTUWETHFRSA Thyroid 05/09/21 Unknown History multivitamin 1 tab PO DAILY SUPPLEMENT 05/09/21 05/09/21 History omeprazole 20 mg capsule,delayed 20 mg PO DAILY GERD 05/09/21 05/09/21 History release nifedipine 30 mg tablet,extended 30 mg PO DAILY BLOOD PRESSURE 01/12/23 Unknown History release 24 hr cephalexin 500 mg capsule 500 mg PO Q8 3 days #0 caps 11/26/23 Unknown Rx tramadol 50 mg tablet 50 mg PO BID PRN pain 30 days #60 11/26/23 Unknown Rx tabs lovastatin 40 mg tablet 40 mg PO QHS CHOLESTEROL 01/20/24 Unknown History Allergy/AdvReac Type Severity Reaction Status Date / Time No Known Allergies Allergy Verified 01/20/24 09:58 Social History household members: children Smoking Status: Former smoker alcohol intake: never substance use type: does not use ROS Constitutional Constitutional: Denies fever(s) or weight loss Eyes Eyes: Reports systems reviewed and no addt'l complaints, except as documented ENT HEENT: Reports systems reviewed and no addt'l complaints, except as documented Cardiovascular Cardiovascular: Reports other Details: Persistent left arm pain ; Denies chest pain at rest, chest pain with activity, dyspnea at rest, dyspnea on exertion, edema, palpitations or paroxysmal nocturnal dyspnea Respiratory/Chest Respiratory/Chest: Denies dyspnea on exertion, productive cough, shortness of breath at rest or shortness of breath with exertion Gastrointestinal Gastrointestinal: Denies change in bowel habits, nausea, vomiting or weight changes Genitourinary Genitourinary: Denies difficulty urinating Musculoskeletal Musculoskeletal: Denies joint stiffness or muscle weakness Integumentary Integumentary: Denies lesions Neurologic Neurologic: Denies dizziness or syncope Psychiatric Psychiatric: Denies anxiety Endocrine Endocrinology: Denies excessive sweating or fatigue Hematologic/Lymphatic Hematologic/Lymphatic: Denies anemia Allergic/Immunologic Allergic/Immunologic: Denies seasonal rhinorrhea Physical Exam Const alert, oriented x3 and no apparent distress General Appearance: cooperative HEENT hearing grossly normal bilaterally Head and Scalp: atraumatic Eyes EOMs intact bilaterally Neck General: normal visual inspection Chest inspection of chest normal and palpation of chest normal Resp normal respiratory effort Auscultation: clear to auscultation bilaterally Cardio regular rate, regular rhythm, S1 normal heart sound and S2 normal heart sound Jugular Venous Distention: JVD Heart Sounds: murmur systolic III/ harsh early left sternal border and neck to carotid arteries GI normal to inspection, nondistended, normoactive bowel sounds Extremity normal capillary refill and no pedal edema Peripheral Pulses: Yes pulses 2+ throughout and femoral pulses present Skin no rashes or lesions noted Neuro oriented x3 and CN's II-XII intact bilaterally Psych Appearance: grossly normal and appropriate Risk Stratification Risk Stratification Applicable: Yes Age >/= 65: Yes >/= 3 CAD Risk Factors (HTN, HLD, DM, family hx of CAD, or current smoker): Yes Aspirin Use in the Past 7 Days: No Severe Angina (>/= episodes in 24 hours): No EKG ST Changes >/= 0.5mm: No Positive Cardiac Marker: Yes GAGAN Risk Stratification Score: 3 GAGAN % Risk: 13% Risk Objective Data Vital Signs: Vital Signs Temp Pulse Resp BP Pulse Ox O2 Del Method 98.4 F 72 16 145/89 H 95 Room Air 01/20/24 13:07 01/20/24 13:07 01/20/24 13:07 01/20/24 13:07 01/20/24 13:07 01/20/24 12:57 Oxygen Delivery Method Room Air Weight: 171 lb Body Mass Index (BMI) 33.4 Lab / Micro Data 01/20/24 11:00 01/20/24 11:00 Labs: Laboratory Results - last 24 hr 01/20/24 11:00: WBC 7.6, RBC 3.14 L, Hgb 9.5 L, Hct 30.7 L, MCV 97.8, MCH 30.3, MCHC 30.9 L, RDW Std Deviation 57.1 H, RDW Coeff of Fouzia 16.0 H, Plt Count 257, MPV 9.3, Immature Gran % (Auto) 0.400, Neut % (Auto) 81.1 H, Lymph % (Auto) 11.6 L, [place] % (Auto) 6.6, Eos % (Auto) 0.0, Baso % (Auto) 0.3, Absolute Neuts (auto) 6.2, Absolute Lymphs (auto) 0.88, Nucleated RBC % 0, Sodium 135 L, Potassium 3.8, Chloride 100, Carbon Dioxide 27.0, Anion Gap 8, BUN 13, Creatinine 0.66, Estim Creat Clear Calc 48.20, Est GFR (MDRD) Af Amer 109, Est GFR (MDRD) Non-Af 90, BUN/Creatinine Ratio 19.6, Glucose 116 H, Calcium 9.1, Troponin I High Sens 3264 H* 01/20/24 11:10: Urine Color Yellow, Urine Clarity Clear, Urine pH 7.0, Ur Specific [place] 1.010, Urine Protein 30 H, Urine Glucose (UA) Normal, Urine Ketones Negative, Urine Occult Blood 10 H, Urine Nitrite Negative, Urine Bilirubin Negative, Urine Urobilinogen 1 H, Ur Leukocyte Esterase 100 H, Urine RBC 0-5 SEEN, Urine WBC 5-10 SEEN, Ur Squamous Epith Cells 0 SEEN, Urine Bacteria 2+, Urine Mucus 0 SEEN Cardiology Labs/Tests 01/20/24 11:00: WBC 7.6, RBC 3.14 L, Hgb 9.5 L, Hct 30.7 L, MCV 97.8, MCH 30.3, MCHC 30.9 L, Plt Count 257, MPV 9.3, Immature Gran % (Auto) 0.400, Neut % (Auto) 81.1 H, Lymph % (Auto) 11.6 L, [place] % (Auto) 6.6, Eos % (Auto) 0.0, Baso % (Auto) 0.3, Absolute Neuts (auto) 6.2, Nucleated RBC % 0, Sodium 135 L, Potassium 3.8, Chloride 100, Carbon Dioxide 27.0, Anion Gap 8, BUN 13, Creatinine 0.66, Est GFR (MDRD) Af Amer 109, Est GFR (MDRD) Non-Af 90, BUN/Creatinine Ratio 19.6, Glucose 116 H, Calcium 9.1 01/20/24 11:10: Urine Color Yellow, Urine Clarity Clear, Urine pH 7.0, Ur Specific [place] 1.010, Urine Protein 30 H, Urine Glucose (UA) Normal, Urine Ketones Negative, Urine Occult Blood 10 H, Urine Nitrite Negative, Urine Bilirubin Negative, Urine Urobilinogen 1 H, Ur Leukocyte Esterase 100 H, Urine RBC 0-5 SEEN, Urine WBC 5-10 SEEN Rhythm: EKG: ECHO: Stress Test: Cardiac Cath: PCI: CT Surgery: Holter monitor: EPS: PPM: CXR: Chest CT Scan: Radiography Diagnostic Testing: Radiology Impression Chest X-Ray 01/20/24 11:15 IMPRESSION: Stable examination suggestive of scarring. Electronically Signed: Sixto Leija MD at 12:12 EDT ,
[2024-01-20 13:17] LABS: Reflex Troponin-HS? (from REC) Y
--- NOTE | 2024-01-20 14:08 | ECHOD_ITS ---
Reason For Study: HYPERTENSION Procedure This was a 2D Doppler, Color Flow transthoracic echocardiogram. The study was technically difficult. Exam performed portable in patient room. Left Ventricle Normal LV size. Left ventricular systolic function is normal. The estimated ejection fraction is 65 %. Stage 1 diastolic dysfunction. No regional wall motion abnormalities noted. Right Ventricle Normal RV size. Normal systolic function. Atria Normal left atrium. Normal right atrium. Tricuspid Valve Normal tricuspid valve. Mild (1+) tricuspid valve insufficiency. Pulmonary artery systolic pressure is 34 mmHg. Aortic Valve Trisinus/trileaflet aortic valve. Mild focal aortic valve calcification. Peak aortic valve gradient 41 mmHg. Mean aortic valve gradient 24 mmHg. Moderate aortic stenosis. Pulmonic Valve Normal pulmonic valve. Great Vessels Normal aortic root. The pulmonary artery is normal size. Normal inferior vena cava. Pericardium/Pleural No pericardial effusion. MMode/2D Measurements & Calculations LVIDd: 2.5 cm IVSd: 0.96 cm Ao root diam: 2.9 cm LVIDs: 1.9 cm LVPWd: 0.98 cm FS: 23.5 % LAV(MOD-bp): 51.4 ml LVAd ap4: 17.5 cm2 SV(MOD-sp4): 22.7 ml LAV(MOD-bp) Indexed: 29.4 ml/m2 LVLd ap4: 6.9 cm LAV(MOD-sp2): 41.5 ml EDV(MOD-sp4): 36.7 ml LAV(MOD-sp4): 59.1 ml EDV(sp4-el): 37.3 ml LVAs ap4: 9.9 cm2 LVLs ap4: 6.3 cm ESV(MOD-sp4): 14.0 ml ESV(sp4-el): 13.3 ml EF(MOD-sp4): 61.8 % EF(sp4-el): 64.4 % SV(sp4-el): 24.0 ml LA dimension(2D): 2.7 cm LA A4 area: 18.8 cm2 TAPSE: 2.5 cm Time Measurements MV dec time: 0.21 sec Doppler Measurements & Calculations MV E max eagle: 88.6 cm/sec Lat Peak E' Eagle: 6.4 cm/sec Med Peak E' Eagle: 7.3 cm/sec MV A max eagle: 103.6 cm/sec E/E' lat: 13.9 E/E' med: 12.2 MV E/A: 0.86 MV V2 max: 115.2 cm/sec MV P1/2t max eagle: 114.3 cm/sec Ao V2 max: 320.1 cm/sec MV max P.3 mmHg MV P1/2t: 42.4 msec Ao max P.0 mmHg MV V2 mean: 74.5 cm/sec MV dec slope: 790.1 cm/sec2 Ao V2 mean: 232.8 cm/sec MV mean P.4 mmHg Ao mean P.7 mmHg MV V2 VTI: 26.4 cm MVA(P1/2t): 5.2 cm2 Ao V2 VTI: 62.9 cm AV (velocity ratio): 0.43 LV V1 max: 130.5 cm/sec PA V2 max: 139.5 cm/sec TR max eagle: 271.0 cm/sec LV V1 max P.8 mmHg PA V2 mean: 94.9 cm/sec TR max P.4 mmHg LV V1 mean P.2 mmHg LV V1 mean: 100.1 cm/sec LV V1 VTI: 27.1 cm ECHO/Echo Complete Interpretation Summary Normal LV size. Left ventricular systolic function is normal. The estimated ejection fraction is 65 %. Stage 1 diastolic dysfunction. Pulmonary artery systolic pressure is 34 mmHg. Mean aortic valve gradient 24 mmHg. Moderate aortic stenosis. Ordering Physician: Hector Anderson Referring Physician: Carl Roberts Performed By: Arely Fishman, IRA, RVT
--- NOTE | 2024-01-20 14:14 | CL.D_ITS ---
Patient Name: STEFANO WASHINGTON Study Date: 01/20/2024 Performing: Hector Anderson MD Ht: 60 inches 152.4 cm : 1940 Wt: 170.99 lbs 77.56 kg Age: 83 Gender: female BSA: 1.75 PROCEDURE(S) PERFORMED DC01-(53431)LHC/COR/LV CLINICAL PROFILE AND INDICATIONS Indications: Suspected CAD Heart Failure: None Stress/Imaging Stress/Image Study Performed: No CAD Presentations: Other: weakness CONCLUSIONS Cardiomyopathy: Takotsubo Non obstructive coronary arteries RECOMMENDATIONS Medical therapy DESCRIPTION OF PROCEDURE The patient arrived to the procedure lab. The risks and benefits of the procedure as well as a full description of our services here and current unavailability of surgical backup were fully explained to the patient and/or their significant other prior to the catheterization. The Timeout was completed, verifying the correct patient and procedure. The patient's procedural site was prepped and draped in the usual fashion. Local anesthetic was given subcutaneously to right radial region with Lidocaine 2%. Using a modified Seldinger technique, arterial access was obtained via the right radial artery, a 5Fr sheath was inserted. Right Coronary Artery selective angiography was then performed in multiple views using a 5 Fr. 4.0 [place] catheter. Left Coronary Artery selective angiography was performed in multiple views using a 5 Fr. 4.0 [place] catheter. Left Ventriculography was performed in WILSON projection using a 5 Fr. Pigtail catheter. LV to AO pullback pressures were then recorded.The arterial sheath was pulled and a TR Band was applied for hemostasis 10 ml of air CORONARY ANGIOGRAPHY DOMINANCE: Right Dominant LEFT HEART ASSESSMENT Left Ventricular Ejection Fraction: by LV Gram 35 % Anterior Hypokinesis - Severe. Apical Hypokinesis - Severe Depressed Left Ventricular systolic function Consistent with Takotsubo cardiomyopathy. LEFT MAIN: 30 distal % Stenosis LEFT ANTERIOR DESCENDING ARTERY: Mild luminal irregularities less than 30% CIRCUMFLEX ARTERY: Mild luminal irregularities less than 30% RIGHT CORONARY ARTERY: Mild luminal irregularities less than 30% VALVE FINDINGS: Aortic Valve Stenosis - mild COMPLICATIONS No Complications PROCEDURE MEDICATIONS Oxygen: 2 L/min via nasal cannula Heparin given IA 01/20/2024 13:45:47 SUMMARY OF HEMODYNAMIC DATA Time AIR REST ECG 13:28:30 ECG 13:28:40 AO 100/54 (75) SA 13:53:02 AO 98/51 (71) 13:57:15 LV 122/-4, 2 14:01:46 LV 123/-3, 2 14:01:55 LV 113/8, 12 14:02:21 LV 113/9, 13 14:02:30 LVp 113/9, 13 14:02:36 LVp 115/9, 15 14:02:38 AOp 96/46 (69) 14:02:45 Signed By Hector Anderson MD On 01/20/2024 14:13:59 Hector Anderson MD
[2024-01-20 14:38] LABS: Troponin-I HS 2756 pg/mL (3.0-54.0)
[2024-01-20] MEDS: Atorvastatin Calcium 40 MG Tablet PO (21:57)
[2024-01-20] MEDS: Carvedilol 3.125 MG TABLET PO (21:57)
[2024-01-21] VITALS (8 sets, daily range): BP systolic 111–134; BP diastolic 57–67; PULSE 86–100; RESP 15–17; TEMP 36.5–37.1; O2SAT 88–96
[2024-01-21 05:58] LABS: Absolute Lymphocyte Count 0.86 X10^3/uL (0.83-4.51); Basophil# 0.03 X10^3/uL; Basophil% 0.6 % (0-1); Eosinophil# 0.02 X10^3/uL; Eosinophils% 0.4 % (0-5); Hematocrit 29.1 % (37-47); Hemoglobin 9.2 g/dL (12.0-15.0); Lymphocyte # 0.86 X10^3/ul (0.83-4.51); Lymphocyte % 15.9 % (19-41); Mean Corp Hgb Conc 31.6 g/dL (32-36); Mean Corpuscular Hgb 30.9 pg (27.0-32.0); Mean Corpuscular Volume 97.7 fL (81-99); Mean Platelet Vol. 9.7 fl (6.2-12.0); Monocyte# 0.49 X10^3/uL; NRBC Flagged by Analyzer 0 % (0-5); Neutrophil # 4.01 X10^3/uL (2.7-7.7); Neutrophil % 73.9 % (47-70); Platelet Count 225 K/mm3 (150-450); RBC Distribution Width SD 57.5 fl (35.1-43.9); Red Blood Count 2.98 M/mm3 (4.2-5.4); White Blood Count 5.4 K/mm3 (4.4-11.0)
[2024-01-21 06:48] LABS: Anion Gap 8 (5-15); BUN 8 mg/dL (7-18); BUN/Creat Ratio 14.5 RATIO (10-20); Calcium,Total 8.6 mg/dL (8.5-10.1); Chloride 101 mmol/L (98-107); Creatinine, Serum 0.55 mg/dL (0.55-1.02); EST Glomerular Filtration Rate 112 mL/min (>60); Est Glom Filt Rate - Afr Amer 135 mL/min (>60); Glucose 114 mg/dL (74-106); Potassium 3.7 mmol/L (3.5-5.1); Sodium Level 135 mmol/L (136-145)
[2024-01-21] MEDS: Carvedilol 3.125 MG TABLET PO ×2 (09:14→22:03)
[2024-01-21] MEDS: traMADol 50 MG Tablet PO (09:14)
[2024-01-21] MEDS: Aspirin E.C. 81 MG Tablet PO (09:14)
--- NOTE | 2024-01-21 10:23 | PN_ITS ---
Subjective Subjective Patient seen and examined. She complains of wanting to use the bathroom. She however has no other complaints. Review of systems otherwise negative. Objective Data Objective Data Vital Signs: Vital Signs Temp Pulse Resp BP Pulse Ox O2 Del Method 98.6 F 87 16 124/62 H 93 Room Air 01/21/24 08:46 01/21/24 08:46 01/21/24 08:46 01/21/24 08:46 01/21/24 08:46 01/21/24 10:00 Oxygen Delivery Method Room Air Weight: 170 lb 15.848 oz Body Mass Index (BMI) 33.3 Intake & Output: Intake and Output for Last 24 Hours 01/19/24 01/20/24 01/21/24 23:59 23:59 23:59 Intake Total 410 / 510 100 / 100 Output Total 200 / 200 Balance 410 / 310 -100 / -100 Lab / Micro Data 01/21/24 05:19 01/21/24 05:19 Labs: Laboratory Results - last 24 hr 01/20/24 11:00: WBC 7.6, RBC 3.14 L, Hgb 9.5 L, Hct 30.7 L, MCV 97.8, MCH 30.3, MCHC 30.9 L, RDW Std Deviation 57.1 H, RDW Coeff of Fouzia 16.0 H, Plt Count 257, MPV 9.3, Immature Gran % (Auto) 0.400, Neut % (Auto) 81.1 H, Lymph % (Auto) 11.6 L, [place] % (Auto) 6.6, Eos % (Auto) 0.0, Baso % (Auto) 0.3, Absolute Neuts (auto) 6.2, Absolute Lymphs (auto) 0.88, Nucleated RBC % 0, Sodium 135 L, Potassium 3.8, Chloride 100, Carbon Dioxide 27.0, Anion Gap 8, BUN 13, Creatinine 0.66, Estim Creat Clear Calc 48.20, Est GFR (MDRD) Af Amer 109, Est GFR (MDRD) Non-Af 90, BUN/Creatinine Ratio 19.6, Glucose 116 H, Calcium 9.1, Troponin I High Sens 3264 H* 01/20/24 11:10: Urine Color Yellow, Urine Clarity Clear, Urine pH 7.0, Ur Specific [place] 1.010, Urine Protein 30 H, Urine Glucose (UA) Normal, Urine Ketones Negative, Urine Occult Blood 10 H, Urine Nitrite Negative, Urine Bilirubin Negative, Urine Urobilinogen 1 H, Ur Leukocyte Esterase 100 H, Urine RBC 0-5 SEEN, Urine WBC 5-10 SEEN, Ur Squamous Epith Cells 0 SEEN, Urine Bacteria 2+, Urine Mucus 0 SEEN 01/20/24 13:40: Troponin I High Sens 2756 H* 01/21/24 05:19: WBC 5.4, RBC 2.98 L, Hgb 9.2 L, Hct 29.1 L, MCV 97.7, MCH 30.9, MCHC 31.6 L, RDW Std Deviation 57.5 H, RDW Coeff of Fouzia 16.0 H, Plt Count 225, MPV 9.7, Immature Gran % (Auto) 0.200, Neut % (Auto) 73.9 H, Lymph % (Auto) 15.9 L, [place] % (Auto) 9.0, Eos % (Auto) 0.4, Baso % (Auto) 0.6, Absolute Neuts (auto) 4.0, Absolute Lymphs (auto) 0.86, Nucleated RBC % 0, Sodium 135 L, Potassium 3.7, Chloride 101, Carbon Dioxide 26.0, Anion Gap 8, BUN 8, Creatinine 0.55, Estim Creat Clear Calc 48.20, Est GFR (MDRD) Af Amer 135, Est GFR (MDRD) Non-Af 112, BUN/Creatinine Ratio 14.5, Glucose 114 H, Calcium 8.6 Radiography Diagnostic Testing: Radiology Impression Chest X-Ray 01/20/24 11:15 IMPRESSION: Stable examination suggestive of scarring. Electronically Signed: Sixto Leija MD at 12:12 EDT , Echocardiogram 01/20/24 14:08 Interpretation Summary Normal LV size. Left ventricular systolic function is normal. The estimated ejection fraction is 65 %. Stage 1 diastolic dysfunction. Pulmonary artery systolic pressure is 34 mmHg. Mean aortic valve gradient 24 mmHg. Moderate aortic stenosis. Ordering Physician: Hector Anderson Referring Physician: Carl Roberts Performed By: Arely Fishman, RDCS, RVT Physical Exam Const alert, oriented x3 and no apparent distress General Appearance: cooperative and uncooperative HEENT normocephalic, head/scalp atraumatic, hearing grossly normal bilaterally and moist oral mucous membranes Eyes PERRL, EOMs intact bilaterally and conjunctivae normal Neck no lymphadenopathy and supple Lymph Lymphatic: no lymphadenopathy noted Resp Resp Narrative: diminished breath sounds bibasally, no wheezes or crackles. On room air. Cardio regular rate, regular rhythm, S1 normal heart sound, S2 normal heart sound and no murmurs GI normal to inspection, nondistended, normoactive bowel sounds, soft to palpation, non-tender and non-distended Extremity normal to inspection, full ROM and no clubbing, cyanosis or edema General Extremity: no tenderness to palpation of joints or extremities Skin General Skin Exam: no breakdown Neuro oriented x3, CN's II-XII intact bilaterally, moves all extremities and no focal motor deficits Sensorium / Orientation: awake and alert Motor Exam: strength 5/5 throughout Psych thought process normal, cooperative and affect normal Appearance: appropriate Assessment & Plan Assessment/Plan (1) Non-ST elevation [place] (NSTEMI): PLAN: Plan #Nonstemi * admitted with a complaint of increased weakness and lethargy * on admission, initial troponin was 3264. Troponin trended down to 2756. * She was taken to the yard laborer which showed nonobstructive coronary arteries and evidence of Takotsubo cardiomyopathy. * Per cardiology to DC her nifedipine. P.o. aspirin. * 2D echo showed EF of 65% with normal LV systolic function and PA systolic pressure of 34mmhg as well as moderate aortic stenosis * Cardiology on board. * #Hypertension: on nifedipine. Per cardiology, nifedipine discontinued. Started on PO carvedilol 3.125mg bid. #GERD: on PPI #Abnormal urinalysis: * was recently treated for UTI and completed her antibiotic course (Keflex). * urine cultures * Previous urine cultures positive for E coli. * on IV ceftriaxone pending urine cultures * #Hypothyroidism:on synthroid. DVT prophylaxis: SCDs Code status: DNRCCA no intubation * * Disposition: Patient's family wanted to be placed. Case management on board to help facilitate this. Charges/Coding Visit Charges Inpatient E&M: 40289 Subs Hosp L2
[2024-01-21] MEDS: Ceftriaxone 1 GM/50 ML BAG IV (10:27)
--- NOTE | 2024-01-21 10:30 | CASEMGMT ---
RN LORENA AIRLINE PILOT CM to room to meet with patient for initial transition planning/care coordination assessment. RN LORENA introduced self and role at [facility]. Pt voices understanding and consents to assessment at this time. Pt resting in bed in no distress at this time. 2 daughters, Deisy and Celina, and son, Mirza, all in room visiting. Pt agreeable to them all being present during assessment. Pt is A/O at this time and answers all questions appropriately. Care providers, pharmacy, and demographics verified/updated at this time. PCP: Dr Roberts Specialists: Dr Pulido[facility] metalsmith helper [facility] [place] [facility] Insurance: [employer] [facility] Prescription Benefit: yes Living Will/HPOA: Pt has both LW and HPOA, who is her daughter, Deisy Quezada LNOK: dtr/POA, Deisy Quezada. Dtr, Celina, and a son, Mirza. GD, Melanie Ojeda. Living Arrangements: Pt lives alone in one-story home w/6 small steps to enter w/railing on both sides. Pt able to navigate the stairs on her own, but family is always w/her to ensure for safety when she goes up/down them. Dtr, Celina, lives next door and GD visits often and they and other family help w/groceries, meals, and all home mgnt tasks. Pt states she is indep w/her own ADL's. DtrDeisy, sets up weekly pill containers. Transportation: Family DME: States has the following DME: shower chair, cane, rollator, walker, W/C (does not use), medical alert, BP machine, pulse ox, lift chair (she sleeps in), grab bars, and RTS. Pt states no need for further DME at this time. HHC/SNF: Pt has been to [facility], [facility], [facility] ([facility] for 10 [facility] in November[facility] and has had [facility] and another HHC in the past. Pt states when she got up to the restroom that she realized how weak she is and was unsteady. She states she is not able to return home and wishes to dc to a SNF. She and family decline wanting a list of SNF options. She would like [facility] her [facility] choice, [facility] as 2nd choice, and [facility] as 3rd/last choice. RESEARCH FELLOW LORENA, Celina, made aware. PT/OT evals pending. PLAN: [facility] PT/OT evals pending. Asher BSN RN CM
[2024-01-21] MEDS: Enoxaparin 40 MG/0.4 ML Syringe SC (11:13)
--- NOTE | 2024-01-21 13:37 | CASEMGMT ---
Addendum entered by Zabrina Lizarraga 01/21/24 14:55: Patient has been accepted by [facility] and precert will be submitted. SW, patient, and her daughter (Deisy) updated. Zabrina Lizarraga DC Planning Asst. Original Note: Discharge Planning Referral faxed to [facility]. Fax confirmation rec'd. Zabrina Lizarraga DC Planning Asst.
[2024-01-21] MEDS: Atorvastatin Calcium 40 MG Tablet PO (22:03)
[2024-01-22] MEDS: Acetaminophen 325 MG Tablet 650 MG PO ×2 (02:50→12:42)
[2024-01-22 04:30] VITALS: BP 130/67; PULSE 86; RESP 17; TEMP 36.6; O2SAT 96
[2024-01-22 05:00] VITALS: BP 130/67; PULSE 86; RESP 17; TEMP 36.6; O2SAT 96
[2024-01-22 06:34] LABS: Absolute Lymphocyte Count 0.94 X10^3/uL (0.83-4.51); Absolute Neutrophil Count 3.1 X10^3/uL (2.0-7.7); Basophil# 0.04 X10^3/uL; Basophil% 0.8 % (0-1); Eosinophil# 0.05 X10^3/uL; Hematocrit 28.9 % (37-47); Lymphocyte # 0.94 X10^3/ul (0.83-4.51); Lymphocyte % 19.7 % (19-41); Mean Corp Hgb Conc 31.1 g/dL (32-36); Mean Corpuscular Hgb 30.3 pg (27.0-32.0); Mean Corpuscular Volume 97.3 fL (81-99); Mean Platelet Vol. 9.7 fl (6.2-12.0); Monocyte# 0.67 X10^3/uL; NRBC Flagged by Analyzer 0 % (0-5); Neutrophil # 3.07 X10^3/uL (2.7-7.7); Neutrophil % 64.3 % (47-70); Platelet Count 234 K/mm3 (150-450); RBC Distribution Width CV 15.9 % (11.6-14.6); RBC Distribution Width SD 55.8 fl (35.1-43.9); Red Blood Count 2.97 M/mm3 (4.2-5.4); White Blood Count 4.8 K/mm3 (4.4-11.0)
[2024-01-22 07:13] LABS: Anion Gap 9 (5-15); BUN 9 mg/dL (7-18); BUN/Creat Ratio 14.9 RATIO (10-20); Calcium,Total 9.1 mg/dL (8.5-10.1); Chloride 105 mmol/L (98-107); Creatinine, Serum 0.61 mg/dL (0.55-1.02); EST Glomerular Filtration Rate 100 mL/min (>60); Est Glom Filt Rate - Afr Amer 121 mL/min (>60); Glucose 106 mg/dL (74-106); Potassium 3.6 mmol/L (3.5-5.1); Sodium Level 138 mmol/L (136-145)
[2024-01-22 07:55] VITALS: O2SAT 93
[2024-01-22] MEDS: Aspirin E.C. 81 MG Tablet PO (09:33)
[2024-01-22] MEDS: Enoxaparin 40 MG/0.4 ML Syringe SC (09:33)
[2024-01-22] MEDS: Carvedilol 3.125 MG TABLET PO (09:33)
[2024-01-22] MEDS: Ceftriaxone 1 GM/50 ML BAG IV (09:33)
[2024-01-22 10:17] VITALS: BP 115/59; PULSE 84; RESP 16; TEMP 36.7; O2SAT 96
--- NOTE | 2024-01-22 10:22 | PN_ITS ---
Subjective Subjective Patient seen and examined. She complained of headache. She had no other complaints. Review of systems is otherwise negative. She is awaiting placement. Objective Data Objective Data Vital Signs: Vital Signs Temp Pulse Resp BP Pulse Ox O2 Del Method 98.1 F 84 16 115/59 L 96 Room Air 01/22/24 10:17 01/22/24 10:17 01/22/24 10:17 01/22/24 10:17 01/22/24 10:01/22/24 10:17 Oxygen Delivery Method Room Air Weight: 170 lb 15.848 oz Body Mass Index (BMI) 33.3 Intake & Output: Intake and Output for Last 24 Hours 01/20/24 01/21/24 01/22/24 23:59 23:59 23:59 Intake Total 410 / 510 550 / 670 290 / 290 Output Total 200 / 300 500 / 500 Balance 410 / 310 350 / 370 -210 / -210 Lab / Micro Data 01/22/24 05:56 01/22/24 05:56 Labs: Laboratory Results - last 24 hr 01/22/24 05:56: WBC 4.8, RBC 2.97 L, Hgb 9.0 L, Hct 28.9 L, MCV 97.3, MCH 30.3, MCHC 31.1 L, RDW Std Deviation 55.8 H, RDW Coeff of Fouzia 15.9 H, Plt Count 234, MPV 9.7, Immature Gran % (Auto) 0.200, Neut % (Auto) 64.3, Lymph % (Auto) 19.7, [place] % (Auto) 14.0 H, Eos % (Auto) 1.0, Baso % (Auto) 0.8, Absolute Neuts (auto) 3.1, Absolute Lymphs (auto) 0.94, Nucleated RBC % 0, Sodium 138, Potassium 3.6, Chloride 105, Carbon Dioxide 24.0, Anion Gap 9, BUN 9, Creatinine 0.61, Estim Creat Clear Calc 48.20, Est GFR (MDRD) Af Amer 121, Est GFR (MDRD) Non-Af 100, BUN/Creatinine Ratio 14.9, Glucose 106, Calcium 9.1 Physical Exam Const alert, oriented x3 and no apparent distress General Appearance: cooperative and well developed HEENT normocephalic, head/scalp atraumatic, hearing grossly normal bilaterally and moist oral mucous membranes Eyes PERRL, EOMs intact bilaterally and conjunctivae normal Neck no lymphadenopathy and supple Lymph Lymphatic: no lymphadenopathy noted Resp Resp Narrative: diminished breath sounds bibasally, no wheezes or crackles. On room air. Cardio regular rate, regular rhythm, S1 normal heart sound, S2 normal heart sound and no murmurs GI normal to inspection, nondistended, normoactive bowel sounds, soft to palpation, non-tender and non-distended Extremity normal to inspection, full ROM and no clubbing, cyanosis or edema General Extremity: no tenderness to palpation of joints or extremities Skin General Skin Exam: no breakdown Neuro oriented x3, CN's II-XII intact bilaterally, moves all extremities and no focal motor deficits Sensorium / Orientation: awake and alert Motor Exam: strength 5/5 throughout and general weakness Psych thought process normal, cooperative and affect normal Appearance: appropriate Assessment & Plan Assessment/Plan (1) Non-ST elevation [place] (NSTEMI): PLAN: Plan #Nonstemi * admitted with a complaint of increased weakness and lethargy * on admission, initial troponin was 3264. Troponin trended down to 2756. * She was taken to the casting house laborer which showed nonobstructive coronary arteries and evidence of Takotsubo cardiomyopathy. * Per cardiology to DC her nifedipine. P.o. aspirin. * 2D echo showed EF of 65% with normal LV systolic function and PA systolic pressure of 34mmhg as well as moderate aortic stenosis * Cardiology on board. * #Hypertension: Per cardiology, nifedipine discontinued. Started on PO carvedilol 3.125mg bid. #GERD: on PPI #Abnormal urinalysis: * was recently treated for UTI and completed her antibiotic course (Keflex). * urine cultures pending * Previous urine cultures positive for E coli. * on IV ceftriaxone pending urine cultures * #Hypothyroidism:on synthroid. DVT prophylaxis: SCDs Code status: DNRCCA no intubation * * Disposition: Patient awaiting placement. Charges/Coding Visit Charges Inpatient E&M: 41739 Subs Hosp L2
--- NOTE | 2024-01-22 13:51 | PCM.TXEXTCAR ---
Diet Diet Order/Speech Therapy: 01/20/24 14:36 Diet: Cardiac - Heart Healthy Food consistency:: Regular Liquid Consistency:: Regular/Thin Routine Orders/Code Status Enema Type: Fleetz Enema Frequency: Daily PRN Suppository Type: Dulcolax 10mg Suppository Frequency: Daily PRN O2 Frequency: PRN Keep PO Greater than or Equal to (%): 90 Wound(s) rt wrist: Wound Type: Puncture Therapies Weight Bearing: Weight bearing as tolerated Physical Therapy: Eval and Treat Occupational Therapy: Eval and Treat Problem/Diagnosis (1) Non-ST elevation [place] (NSTEMI): Status: Acute Code(s): I21.4 - Non-ST elevation (NSTEMI) myocardial infarction Plan #Nonstemi admitted with a complaint of increased weakness and lethargy on admission, initial troponin was 3264. Troponin trended down to 2756. She was taken to the labor economics professor which showed nonobstructive coronary arteries and evidence of Takotsubo cardiomyopathy. Per cardiology to DC her nifedipine. P.o. aspirin. 2D echo showed EF of 65% with normal LV systolic function and PA systolic pressure of 34mmhg as well as moderate aortic stenosis Cardiology on board. #Hypertension: Per cardiology, nifedipine discontinued. Started on PO carvedilol 3.125mg bid. #GERD: on PPI #Abnormal urinalysis: was recently treated for UTI and completed her antibiotic course (Keflex). urine cultures pending Previous urine cultures positive for E coli. on IV ceftriaxone pending urine cultures #Hypothyroidism:on synthroid. DVT prophylaxis: SCDs Code status: DNRCCA no intubation Disposition: Patient awaiting placement. Allergies/Procedures Done in Hospital Allergies nitrofurantoin (From Macrobid) Allergy (Mild, Verified 01/20/24 15:49) Vomiting GI upset, nausea, vomiting and diarrhea. ciprofloxacin Allergy (Unknown, Verified 01/21/24 13:09) nausea and felt loopy Procedures: 2-D Echocardiogram and Cardiac catheterization Type of Care/Length of Stay Estimated LOS: Convalescent Care Less Than 30 days Type of Care Needed: Skilled Rehab Potential: Fair Prognosis: Fair Additional Orders/Day of Discharge Day of Discharge: 01/22/24 Discharge Plan Admission Admit Date/Time: 01/20/24 14:32 Primary Reason for Your Visit: Takotsubo cardiomyopathy Attending Provider: Marilee Avitia Primary Care Provider: Carl Roberts Consulting Providers: Hector Anderson Instructions Patient Instructions: Takotsubo Cardiomyopathy Discharge Orders/Prescriptions Prescriptions: New carvedilol 3.125 mg Tablet 3.125 mg PO BID Qty: 60 2RF cefdinir 300 mg capsule 300 mg PO BID Qty: 10 0RF tramadol 50 mg Tablet 50 mg PO BID PRN (Reason: Pain Score 1-10) Qty: 10 0RF aspirin 81 mg Tablet,Delayed Release (Dr/Ec) 81 mg PO BREAKFAST Qty: 30 2RF Continued multivitamin Tablet 1 tab PO DAILY levothyroxine 88 mcg tablet [facility] Patient Comments: TAKE ONE TABLET BY MOUTH WEDNESDAY THROUGH WEDNESDAY AND NONE ON WEDNESDAY. omeprazole 20 mg Capsule,Delayed Release(Dr/Ec) 20 mg PO DAILY calcium carbonate-vitamin D3 [Calcium 500 + D] 500 mg(1,250mg) -200 unit Tablet 1 tab PO DAILY lovastatin 40 mg tablet 40 mg PO QHS furosemide 20 mg tablet 20 mg PO DAILY PRN (Reason: swelling) Discontinued nifedipine 30 mg tablet extended release 24hr 30 mg PO DAILY tramadol 50 mg tablet 50 mg PO BID PRN (Reason: pain) 30 Days Qty: 60 0RF Referrals / Follow Up: Hector Anderson MD [Med Staff - Active Staff] - Within 2 Weeks Carl Roberts MD [Primary Care Provider] - Within 1 Week Disposition Disposition (needs filled in before D/C Order can be placed): Detention Facility
--- NOTE | 2024-01-22 13:53 | DS.PCM_ITS ---
Providers Date of Admission: 01/20/24 Date of Discharge: 01/22/24 Primary Care Physician: Dr. Carl Roberts MD Consultations 01/20/24 14:39 Consult: Cardiology Routine Consulting Provider: Hector Anderson Reason for Consult: Chest Pain EMERGENT Consult: No MD Notified: Yes Date Notified: 01/20/24 Time Notified: 14:39 Method of Notification: ED Physician Initiated Reason For Visit: WEAKNESS Diagnosis Discharge Diagnosis (1) Non-ST elevation [place] (NSTEMI): Status: Acute Code(s): I21.4 - Non-ST elevation (NSTEMI) myocardial infarction Plan #Nonstemi * admitted with a complaint of increased weakness and lethargy * on admission, initial troponin was 3264. Troponin trended down to 2756. * She was taken to the bundle tier and labeler which showed nonobstructive coronary arteries and evidence of Takotsubo cardiomyopathy. * Per cardiology to DC her nifedipine. P.o. aspirin. * 2D echo showed EF of 65% with normal LV systolic function and PA systolic pressure of 34mmhg as well as moderate aortic stenosis * Cardiology on board. * #Hypertension: Per cardiology, nifedipine discontinued. Started on PO carvedilol 3.125mg bid. #GERD: on PPI #Abnormal urinalysis: * was recently treated for UTI and completed her antibiotic course (Keflex). * urine cultures pending * Previous urine cultures positive for E coli. * on IV ceftriaxone pending urine cultures * #Hypothyroidism:on synthroid. DVT prophylaxis: SCDs Code status: DNRCCA no intubation * * Disposition: Patient awaiting placement. Medications at Discharge Home Medications calcium carbonate 500 mg-vitamin D3 5 mcg (200 unit) tablet (Calcium 500 + D) 1 tab PO DAILY SUPPLEMENT 05/09/21 levothyroxine 88 mcg tablet 88 mcg PO MOTUWETHFRSA Thyroid 05/09/21 multivitamin 1 tab PO DAILY SUPPLEMENT 05/09/21 omeprazole 20 mg capsule,delayed release 20 mg PO DAILY GERD 05/09/21 furosemide 20 mg tablet 20 mg PO DAILY PRN swelling 01/20/24 lovastatin 40 mg tablet 40 mg PO QHS CHOLESTEROL 01/20/24 aspirin 81 mg tablet,delayed release 81 mg PO BREAKFAST #30 tabs 01/22/24 carvedilol 3.125 mg tablet 3.125 mg PO BID #60 tabs 01/22/24 cefdinir 300 mg capsule 300 mg PO BID #10 caps 01/22/24 tramadol 50 mg tablet 50 mg PO BID PRN Pain Score 1-10 #10 tabs 01/22/24 Hospital Course Operations None Procedures 2-D Echocardiogram and Cardiac catheterization Summary of Care Provided Minutes Spent on Discharge: 55 Hospital Course: STEFANO WASHINGTON, is a 83 F with a PMH as outlined who presents via the ED with a complaint of increased weakness,. She is normally able to ambulate with a walker and feed herself, but she felt much weaker than normal today. She denied any fever, chills, cough, palpitations, dizziness, nausea, vomiting or any other symptoms,. She also had left shoulder pain which went down her left arm. She was recently treated for UTI, but says her urine is still dark and smells offensive. Vitals in the ED were BP of 103/53, SC of 95, RR of 18 and oxygen sats of 94% on room air. CBC showed hemoglobin of 9.5 with WBC of 7.6 and platelets of 257. Chemistry showed sodium of 135, potassium of 3.8 and Cr of 0.66. Initial troponin was 3264. EKG showed no acute ST changes. She is being admitted to be managed for nonstemi. She was taken to the bundle tier and labeler from the ED. Cardiac cath showed evidence of Takotsubo cardiomyopathy and showed nonobstructive coronaries. Nifedipine was discontinued and patient was placed on carvedilol. Her hospital course was uncomplicated. Patient was however too weak to go home and did not do very well with therapy. She was therefore amenable to placement. Pre-CERT was obtained and patient was discharged to assisted facility on 01/22/2024. She is follow-up with her primary care doctor and cardiology within 1 to 2 weeks. She was given a prescription for p.o. carvedilol 3.125 mg twice daily and was also given a prescription for p.o. tramadol 50 mg twice daily as needed for total of 10 tablets with 0 refills. Of note, urinalysis done showed evidence of UTI and urine cultures were growing alphahemolytic organisms at time of discharge. Based on previous cultures, she was discharged on p.o. cefdinir 300 mg twice daily for 5 days. Patient seen and examined prior to discharge. She felt well and had no active complaints. She had an uneventful night. Review of systems otherwise negative. Labs and vitals reviewed. Home medication reviewed and reconciled. Physical Exam Const alert, oriented x3 and no apparent distress General Appearance: cooperative, comfortable, well kempt, well developed and uncooperative HEENT normocephalic, head/scalp atraumatic, hearing grossly normal bilaterally and moist oral mucous membranes Mouth: oral and palatal mucosa normal Eyes PERRL, EOMs intact bilaterally and conjunctivae normal Neck no lymphadenopathy and supple Lymph Lymphatic: no lymphadenopathy noted Resp Resp Narrative: diminished breath sounds bibasally, no wheezes or crackles. On room air. Cardio regular rate, regular rhythm, S1 normal heart sound, S2 normal heart sound and no murmurs GI normal to inspection, nondistended, normoactive bowel sounds, soft to palpation, non-tender and non-distended Extremity normal to inspection, full ROM and no clubbing, cyanosis or edema General Extremity: no tenderness to palpation of joints or extremities Skin General Skin Exam: no breakdown Neuro oriented x3, CN's II-XII intact bilaterally, moves all extremities and no focal motor deficits Sensorium / Orientation: awake and alert Motor Exam: strength 5/5 throughout and general weakness Psych thought process normal, cooperative and affect normal Appearance: appropriate Weight / BMI Weight Weight: 170 lb 15.848 oz Body Mass Index (BMI) 33.3 ABG / Lab / Microbiology Data 01/22/24 05:56 01/22/24 05:56 Laboratory: Laboratory Results - last 24 hr 01/22/24 05:56: WBC 4.8, RBC 2.97 L, Hgb 9.0 L, Hct 28.9 L, MCV 97.3, MCH 30.3, MCHC 31.1 L, RDW Std Deviation 55.8 H, RDW Coeff of Fouzia 15.9 H, Plt Count 234, MPV 9.7, Immature Gran % (Auto) 0.200, Neut % (Auto) 64.3, Lymph % (Auto) 19.7, [place] % (Auto) 14.0 H, Eos % (Auto) 1.0, Baso % (Auto) 0.8, Absolute Neuts (auto) 3.1, Absolute Lymphs (auto) 0.94, Nucleated RBC % 0, Sodium 138, Potassium 3.6, Chloride 105, Carbon Dioxide 24.0, Anion Gap 9, BUN 9, Creatinine 0.61, Estim Creat Clear Calc 48.20, Est GFR (MDRD) Af Amer 121, Est GFR (MDRD) Non-Af 100, BUN/Creatinine Ratio 14.9, Glucose 106, Calcium 9.1 Microbiology: Microbiology 01/20/24 11:10 Urine, Catheterized Urine Culture - Preliminary Alpha hemolytic organism D/C Instructions Discharge Diet: Low fat / Low cholesterol Discharge Activity: Return to Normal Activity Weight Bearing Status: Weight bearing as tolerated Call your doctor if you observe: Fever of 101 or Higher, Shortness of breath, Dizziness, Swelling in the ankles and Chest pain Meaningful Use Info Meaningful Use Meaningful Use Diagnoses (Choose all that apply): None applicable Ischemic Stroke Statin Dosing Therapy Reference: STATIN DOSE THERAPY REFERENCE: * Patients > 75 years receive moderate or high dose statin therapy. * Patients 75 years or YOUNGER should receive HIGH intensity statin dose unless contraindicated. You will be required to document reason for non-treatment if statin daily dose does not meet guidelines. HIGH DOSE STATIN THERAPY DAILY Atorvastatin > than or = to 40 mg Rosuvastatin > than or = to 20 mg Amlodipine + Atorvastatin > than or = to 2.5/40 mg Ezetimibe + Simvastatin 10/80 mg Simvastatin 80mg Discharge Plan Admission Admit Date/Time: 01/20/24 14:32 Primary Reason for Your Visit: Takotsubo cardiomyopathy Attending Provider: Marilee Avitia Primary Care Provider: Carl Roberts Consulting Providers: Hector Anderson Instructions Patient Instructions: Takotsubo Cardiomyopathy Discharge Orders/Prescriptions Prescriptions: New carvedilol 3.125 mg Tablet 3.125 mg PO BID Qty: 60 2RF cefdinir 300 mg capsule 300 mg PO BID Qty: 10 0RF tramadol 50 mg Tablet 50 mg PO BID PRN (Reason: Pain Score 1-10) Qty: 10 0RF aspirin 81 mg Tablet,Delayed Release (Dr/Ec) 81 mg PO BREAKFAST Qty: 30 2RF Continued multivitamin Tablet 1 tab PO DAILY levothyroxine 88 mcg tablet 88 mcg PO MOTUWETHFRSA Patient Comments: TAKE ONE TABLET BY MOUTH WEDNESDAY THROUGH WEDNESDAY AND NONE ON WEDNESDAY. omeprazole 20 mg Capsule,Delayed Release(Dr/Ec) 20 mg PO DAILY calcium carbonate-vitamin D3 [Calcium 500 + D] 500 mg(1,250mg) -200 unit Tablet 1 tab PO DAILY lovastatin 40 mg tablet 40 mg PO QHS furosemide 20 mg tablet 20 mg PO DAILY PRN (Reason: swelling) Discontinued nifedipine 30 mg tablet extended release 24hr 30 mg PO DAILY tramadol 50 mg tablet 50 mg PO BID PRN (Reason: pain) 30 Days Qty: 60 0RF Referrals / Follow Up: Hector Anderson MD [Med Staff - Active Staff] - Within 2 Weeks Carl oRberts MD [Primary Care Provider] - Within 1 Week Disposition Disposition (needs filled in before D/C Order can be placed): [facility] Charges/Coding Visit Charges Inpatient E&M: 26793 Disch Hosp >30min
--- NOTE | 2024-01-22 14:34 | CASEMGMT ---
Social Work Received call from [facility] that PCU received call from [facility] skilled unit, indicating patient is approved to come today. Uncertainty whether insurance authorization was obtained. This typewriter aligner called Allison at [facility] ([phone]) who reports per notes there the authorization is received and good from 01.20 through 01.27.2024. Updated PCU staff who will follow green sheet for final discharge arrangements. Plan: Discharge skilled level of care to [facility] Swing unit/skilled unit. -SHANEL Faith
[2024-01-22 15:53] VITALS: BP 107/55; PULSE 88; RESP 16; TEMP 36.6; O2SAT 93
== END 2024-01-22 16:50 | disposition skilled nursing facility (03) | DRG 281 ==
LOC: ED 13:03 → PCU 14:46
PROVIDERS: Admitting Provider Student in an Organized Health Care Education/Training Program; Emergency Provider Emergency Medicine; PCP Family Medicine; Visit Provider Student in an Organized Health Care Education/Training Program
DX: I21.4 Non-ST elevation (NSTEMI) myocardial infarction (principal); N39.0 Urinary tract infection, site not specified; I51.81 Takotsubo syndrome; I45.10 Unspecified right bundle-branch block; I35.0 Nonrheumatic aortic (valve) stenosis; E03.9 Hypothyroidism, unspecified; K21.9 Gastro-esophageal reflux disease without esophagitis; E78.00 Pure hypercholesterolemia, unspecified; I25.10 Atherosclerotic heart disease of native coronary artery without angina pectoris; Z87.891 Personal history of nicotine dependence; G89.29 Other chronic pain; Z66 Do not resuscitate
CPT/HCPCS: 71045; 80048; 81001; 84484; 85025; 87077; 87086; 87088; 93005; 93306; 93458; 97110; 97162; 97166; 97530; 97535; 99284; Q9957; Q9967; A4216; C1769; C1894

== ENCOUNTER → 2024-03-20 | Outpatient (REF) | payer MEDICARE, SELFPAY ==
[2024-03-20 07:50] LABS: Absolute Lymphocyte Count 1.45 X10^3/uL (0.83-4.51); Absolute Neutrophil Count 1.7 X10^3/uL (2.0-7.7); Basophil# 0.08 X10^3/uL; Basophil% 1.7 % (0-1); Eosinophil# 0.85 X10^3/uL; Eosinophils% 18.1 % (0-5); Hematocrit 31.5 % (37-47); Hemoglobin 9.5 g/dL (12.0-15.0); Lymphocyte # 1.45 X10^3/ul (0.83-4.51); Lymphocyte % 30.9 % (19-41); Mean Corp Hgb Conc 30.2 g/dL (32-36); Mean Corpuscular Hgb 31.1 pg (27.0-32.0); Mean Corpuscular Volume 103.3 fL (81-99); Mean Platelet Vol. 10.4 fl (6.2-12.0); Monocyte# 0.57 X10^3/uL; Monocyte% 12.1 % (0-10); NRBC Flagged by Analyzer 0 % (0-5); Neutrophil # 1.74 X10^3/uL (2.7-7.7); POSITIVE MORPHOLOGY YES; Platelet Count 165 K/mm3 (150-450); RBC Distribution Width CV 17.2 % (11.6-14.6); RBC Distribution Width SD 65.7 fl (35.1-43.9); Red Blood Count 3.05 M/mm3 (4.2-5.4); White Blood Count 4.7 K/mm3 (4.4-11.0)
[2024-03-20 07:51] LABS: Differential Indicated SCAN CRITERIA MET
[2024-03-20 10:27] LABS: Anisocytosis 1+
[2024-03-20 10:59] LABS: ALB/GLOB Ratio 0.8 RATIO (0.9-2.4); AST(SGOT) 24 U/L (15-37); Alanine Aminotransfer ALT/SGPT 9 U/L (13-56); Albumin, Serum 2.7 g/dL (3.2-5.0); Alkaline Phosphatase 66 U/L (45-117); Anion Gap 5 (5-15); BUN 11 mg/dL (7-18); BUN/Creat Ratio 19.3 RATIO (10-20); Bilirubin, Direct 0.11 mg/dL (0.00-0.30); Calcium,Total 8.6 mg/dL (8.5-10.1); Chloride 108 mmol/L (98-107); Creatinine, Serum 0.57 mg/dL (0.55-1.02); EST Glomerular Filtration Rate 107 mL/min (>60); Est Glom Filt Rate - Afr Amer 130 mL/min (>60); Globulin 3.4 g/dL (2.2-4.2); Glucose 85 mg/dL (74-106); Phosphorus 3.1 mg/dL (2.5-4.9); Potassium 3.8 mmol/L (3.5-5.1); Protein, Total 6.1 g/dL (6.4-8.2); Sodium Level 141 mmol/L (136-145)
== END ==
LOC: OLS.WHLTCC 04:00
PROVIDERS: PCP Family Medicine; Visit Provider Internal Medicine
DX: R78.81 Bacteremia (principal); I25.2 Old myocardial infarction; I51.81 Takotsubo syndrome; M62.561 Muscle wasting and atrophy, not elsewhere classified, right lower leg; M62.562 Muscle wasting and atrophy, not elsewhere classified, left lower leg
CPT/HCPCS: 36415; 80053; 82248; 84100; 85025

== ENCOUNTER → 2024-03-27 04:00 | Outpatient (REF) | payer MEDICARE, SELFPAY ==
[2024-03-27 07:35] LABS: Absolute Lymphocyte Count 1.09 X10^3/uL (0.83-4.51); Absolute Neutrophil Count 2.3 X10^3/uL (2.0-7.7); Basophil# 0.05 X10^3/uL; Basophil% 1.2 % (0-1); Eosinophil# 0.33 X10^3/uL; Eosinophils% 7.9 % (0-5); Hematocrit 33.2 % (37-47); Hemoglobin 10.1 g/dL (12.0-15.0); Lymphocyte # 1.09 X10^3/ul (0.83-4.51); Lymphocyte % 26.1 % (19-41); Mean Corp Hgb Conc 30.4 g/dL (32-36); Mean Corpuscular Hgb 30.9 pg (27.0-32.0); Mean Corpuscular Volume 101.5 fL (81-99); Mean Platelet Vol. 9.9 fl (6.2-12.0); Monocyte# 0.36 X10^3/uL; Monocyte% 8.6 % (0-10); NRBC Flagged by Analyzer 0 % (0-5); Neutrophil # 2.34 X10^3/uL (2.7-7.7); Platelet Count 230 K/mm3 (150-450); RBC Distribution Width CV 16.4 % (11.6-14.6); RBC Distribution Width SD 61.8 fl (35.1-43.9); Red Blood Count 3.27 M/mm3 (4.2-5.4); White Blood Count 4.2 K/mm3 (4.4-11.0)
[2024-03-27 08:00] LABS: ALB/GLOB Ratio 0.7 RATIO (0.9-2.4); AST(SGOT) 15 U/L (15-37); Alanine Aminotransfer ALT/SGPT 11 U/L (13-56); Albumin, Serum 2.9 g/dL (3.2-5.0); Alkaline Phosphatase 79 U/L (45-117); Anion Gap 5 (5-15); BUN 14 mg/dL (7-18); Calcium,Total 8.9 mg/dL (8.5-10.1); Chloride 106 mmol/L (98-107); Creatinine, Serum 0.61 mg/dL (0.55-1.02); EST Glomerular Filtration Rate 99 mL/min (>60); Est Glom Filt Rate - Afr Amer 120 mL/min (>60); Globulin 3.9 g/dL (2.2-4.2); Glucose 96 mg/dL (74-106); Phosphorus 2.9 mg/dL (2.5-4.9); Potassium 3.7 mmol/L (3.5-5.1); Protein, Total 6.8 g/dL (6.4-8.2); Sodium Level 138 mmol/L (136-145)
== END ==
LOC: OLS.WHLEAS 04:00
PROVIDERS: PCP Family Medicine; Visit Provider Internal Medicine
DX: R78.81 Bacteremia (principal)
CPT/HCPCS: 36415; 80053; 82248; 84100; 85025

== ENCOUNTER → 2024-04-03 05:00 | Outpatient (REF) | payer MEDICARE, SELFPAY ==
[2024-04-03 07:27] LABS: Absolute Lymphocyte Count 1.36 X10^3/uL (0.83-4.51); Absolute Neutrophil Count 1.5 X10^3/uL (2.0-7.7); Basophil# 0.05 X10^3/uL; Basophil% 1.4 % (0-1); Eosinophils% 5.7 % (0-5); Hematocrit 34.3 % (37-47); Hemoglobin 10.5 g/dL (12.0-15.0); Lymphocyte # 1.36 X10^3/ul (0.83-4.51); Mean Corp Hgb Conc 30.6 g/dL (32-36); Mean Corpuscular Hgb 30.7 pg (27.0-32.0); Mean Corpuscular Volume 100.3 fL (81-99); Monocyte% 11.5 % (0-10); NRBC Flagged by Analyzer 0 % (0-5); Neutrophil # 1.47 X10^3/uL (2.7-7.7); Neutrophil % 42.1 % (47-70); Platelet Count 252 K/mm3 (150-450); RBC Distribution Width CV 15.7 % (11.6-14.6); Red Blood Count 3.42 M/mm3 (4.2-5.4); White Blood Count 3.5 K/mm3 (4.4-11.0)
[2024-04-03 08:06] LABS: ALB/GLOB Ratio 0.7 RATIO (0.9-2.4); AST(SGOT) 15 U/L (15-37); Alanine Aminotransfer ALT/SGPT 11 U/L (13-56); Albumin, Serum 2.9 g/dL (3.2-5.0); Alkaline Phosphatase 86 U/L (45-117); Anion Gap 6 (5-15); BUN 18 mg/dL (7-18); BUN/Creat Ratio 25.5 RATIO (10-20); Bilirubin, Direct 0.19 mg/dL (0.00-0.30); Calcium,Total 9.1 mg/dL (8.5-10.1); Chloride 107 mmol/L (98-107); Creatinine, Serum 0.71 mg/dL (0.55-1.02); EST Glomerular Filtration Rate 84 mL/min (>60); Est Glom Filt Rate - Afr Amer 101 mL/min (>60); Glucose 95 mg/dL (74-106); Potassium 3.8 mmol/L (3.5-5.1); Protein, Total 6.9 g/dL (6.4-8.2); Sodium Level 141 mmol/L (136-145)
== END ==
LOC: OLS.WHLEAS 05:00
PROVIDERS: PCP Family Medicine; Visit Provider Internal Medicine
DX: R78.81 Bacteremia (principal)
CPT/HCPCS: 36415; 80053; 82248; 84100; 85025

== ENCOUNTER → 2024-04-11 05:00 | Outpatient (REF) | payer MEDICARE, SELFPAY ==
[2024-04-11 08:49] LABS: Absolute Lymphocyte Count 1.15 X10^3/uL (0.83-4.51); Absolute Neutrophil Count 1.5 X10^3/uL (2.0-7.7); Basophil# 0.04 X10^3/uL; Basophil% 1.3 % (0-1); Eosinophil# 0.09 X10^3/uL; Hematocrit 38.1 % (37-47); Hemoglobin 11.7 g/dL (12.0-15.0); Lymphocyte # 1.15 X10^3/ul (0.83-4.51); Lymphocyte % 37.7 % (19-41); Mean Corp Hgb Conc 30.7 g/dL (32-36); Mean Corpuscular Hgb 30.9 pg (27.0-32.0); Mean Corpuscular Volume 100.5 fL (81-99); Mean Platelet Vol. 9.9 fl (6.2-12.0); Monocyte% 9.8 % (0-10); NRBC Flagged by Analyzer 0 % (0-5); Neutrophil # 1.46 X10^3/uL (2.7-7.7); Neutrophil % 47.9 % (47-70); Platelet Count 225 K/mm3 (150-450); RBC Distribution Width CV 15.3 % (11.6-14.6); RBC Distribution Width SD 57.2 fl (35.1-43.9); Red Blood Count 3.79 M/mm3 (4.2-5.4); White Blood Count 3.1 K/mm3 (4.4-11.0)
[2024-04-11 09:30] LABS: ALB/GLOB Ratio 0.8 RATIO (0.9-2.4); AST(SGOT) 14 U/L (15-37); Alanine Aminotransfer ALT/SGPT 8 U/L (13-56); Albumin, Serum 3.3 g/dL (3.2-5.0); Alkaline Phosphatase 139 U/L (45-117); Anion Gap 7 (5-15); BUN 17 mg/dL (7-18); BUN/Creat Ratio 22.5 RATIO (10-20); Bilirubin, Direct 0.18 mg/dL (0.00-0.30); Calcium,Total 9.6 mg/dL (8.5-10.1); Chloride 105 mmol/L (98-107); Creatinine, Serum 0.76 mg/dL (0.55-1.02); EST Glomerular Filtration Rate 77 mL/min (>60); Est Glom Filt Rate - Afr Amer 94 mL/min (>60); Glucose 96 mg/dL (74-106); Phosphorus 3.1 mg/dL (2.5-4.9); Potassium 3.9 mmol/L (3.5-5.1); Protein, Total 7.3 g/dL (6.4-8.2); Sodium Level 139 mmol/L (136-145)
== END ==
LOC: OLS.WHLEAS 05:00
PROVIDERS: PCP Family Medicine; Visit Provider Internal Medicine
DX: I10 Essential (primary) hypertension (principal)
CPT/HCPCS: 36415; 80053; 82248; 84100; 85025

== ENCOUNTER → 2024-04-17 05:00 | Outpatient (REF) | payer MEDICARE, SELFPAY ==
[2024-04-17 09:44] LABS: Absolute Lymphocyte Count 1.46 X10^3/uL (0.83-4.51); Absolute Neutrophil Count 1.3 X10^3/uL (2.0-7.7); Basophil# 0.06 X10^3/uL; Basophil% 1.8 % (0-1); Eosinophil# 0.08 X10^3/uL; Eosinophils% 2.5 % (0-5); Hematocrit 38.2 % (37-47); Hemoglobin 11.6 g/dL (12.0-15.0); Lymphocyte # 1.46 X10^3/ul (0.83-4.51); Lymphocyte % 44.8 % (19-41); Mean Corp Hgb Conc 30.4 g/dL (32-36); Mean Corpuscular Hgb 31.3 pg (27.0-32.0); Mean Platelet Vol. 10.6 fl (6.2-12.0); Monocyte# 0.32 X10^3/uL; Monocyte% 9.8 % (0-10); NRBC Flagged by Analyzer 0 % (0-5); Neutrophil # 1.33 X10^3/uL (2.7-7.7); Neutrophil % 40.8 % (47-70); Platelet Count 206 K/mm3 (150-450); RBC Distribution Width CV 15.3 % (11.6-14.6); RBC Distribution Width SD 58.6 fl (35.1-43.9); Red Blood Count 3.71 M/mm3 (4.2-5.4); White Blood Count 3.3 K/mm3 (4.4-11.0)
[2024-04-17 10:14] LABS: ALB/GLOB Ratio 0.8 RATIO (0.9-2.4); AST(SGOT) 34 U/L (15-37); Alanine Aminotransfer ALT/SGPT 12 U/L (13-56); Albumin, Serum 3.2 g/dL (3.2-5.0); Alkaline Phosphatase 112 U/L (45-117); Anion Gap 10 (5-15); BUN 21 mg/dL (7-18); BUN/Creat Ratio 30.1 RATIO (10-20); Bilirubin, Direct 0.16 mg/dL (0.00-0.30); Calcium,Total 9.3 mg/dL (8.5-10.1); Chloride 106 mmol/L (98-107); EST Glomerular Filtration Rate 85 mL/min (>60); Est Glom Filt Rate - Afr Amer 103 mL/min (>60); Globulin 4.1 g/dL (2.2-4.2); Glucose 73 mg/dL (74-106); Phosphorus 2.9 mg/dL (2.5-4.9); Potassium 4.8 mmol/L (3.5-5.1); Protein, Total 7.3 g/dL (6.4-8.2); Sodium Level 139 mmol/L (136-145)
== END ==
LOC: OLS.WHLEAS 05:00
PROVIDERS: PCP Family Medicine; Visit Provider Internal Medicine
DX: R78.81 Bacteremia (principal)
CPT/HCPCS: 36415; 80053; 82248; 84100; 85025

== ENCOUNTER → 2024-04-24 05:00 | Outpatient (REF) | payer MEDICARE, SELFPAY ==
[2024-04-24 09:09] LABS: Absolute Neutrophil Count 1.2 X10^3/uL (2.0-7.7); Basophil# 0.04 X10^3/uL; Basophil% 1.2 % (0-1); Eosinophil# 0.08 X10^3/uL; Eosinophils% 2.5 % (0-5); Hematocrit 37.4 % (37-47); Hemoglobin 11.3 g/dL (12.0-15.0); Lymphocyte % 49.4 % (19-41); Mean Corp Hgb Conc 30.2 g/dL (32-36); Mean Corpuscular Volume 102.7 fL (81-99); Mean Platelet Vol. 10.8 fl (6.2-12.0); Monocyte# 0.34 X10^3/uL; Monocyte% 10.5 % (0-10); NRBC Flagged by Analyzer 0 % (0-5); Neutrophil # 1.17 X10^3/uL (2.7-7.7); Neutrophil % 36.1 % (47-70); Platelet Count 178 K/mm3 (150-450); RBC Distribution Width SD 57.1 fl (35.1-43.9); Red Blood Count 3.64 M/mm3 (4.2-5.4); White Blood Count 3.2 K/mm3 (4.4-11.0)
[2024-04-24 09:51] LABS: ALB/GLOB Ratio 0.9 RATIO (0.9-2.4); AST(SGOT) 14 U/L (15-37); Alanine Aminotransfer ALT/SGPT 10 U/L (13-56); Albumin, Serum 3.2 g/dL (3.2-5.0); Alkaline Phosphatase 90 U/L (45-117); Anion Gap 8 (5-15); BUN 18 mg/dL (7-18); BUN/Creat Ratio 26.1 RATIO (10-20); Bilirubin, Direct 0.16 mg/dL (0.00-0.30); Calcium,Total 9.3 mg/dL (8.5-10.1); Chloride 110 mmol/L (98-107); Creatinine, Serum 0.69 mg/dL (0.55-1.02); EST Glomerular Filtration Rate 86 mL/min (>60); Est Glom Filt Rate - Afr Amer 104 mL/min (>60); Globulin 3.5 g/dL (2.2-4.2); Glucose 84 mg/dL (74-106); Phosphorus 3.4 mg/dL (2.5-4.9); Protein, Total 6.7 g/dL (6.4-8.2); Sodium Level 144 mmol/L (136-145)
== END ==
LOC: OLS.WHLEAS 05:00
PROVIDERS: PCP Family Medicine; Visit Provider Internal Medicine
DX: R78.81 Bacteremia (principal)
CPT/HCPCS: 36415; 80053; 82248; 84100; 85025

== ENCOUNTER → 2024-05-01 | Outpatient (REF) | payer MEDICARE, SELFPAY ==
[2024-05-01 08:35] LABS: Absolute Lymphocyte Count 1.58 X10^3/uL (0.83-4.51); Absolute Neutrophil Count 1.1 X10^3/uL (2.0-7.7); Basophil# 0.05 X10^3/uL; Basophil% 1.6 % (0-1); Eosinophil# 0.08 X10^3/uL; Eosinophils% 2.5 % (0-5); Hematocrit 36.4 % (37-47); Lymphocyte # 1.58 X10^3/ul (0.83-4.51); Mean Corp Hgb Conc 30.2 g/dL (32-36); Mean Corpuscular Volume 102.5 fL (81-99); Monocyte# 0.38 X10^3/uL; NRBC Flagged by Analyzer 0 % (0-5); Neutrophil # 1.07 X10^3/uL (2.7-7.7); Neutrophil % 33.9 % (47-70); Platelet Count 149 K/mm3 (150-450); RBC Distribution Width CV 14.6 % (11.6-14.6); RBC Distribution Width SD 55.6 fl (35.1-43.9); Red Blood Count 3.55 M/mm3 (4.2-5.4); White Blood Count 3.2 K/mm3 (4.4-11.0)
[2024-05-01 09:15] LABS: AST(SGOT) 12 U/L (15-37); Alanine Aminotransfer ALT/SGPT 11 U/L (13-56); Albumin, Serum 3.2 g/dL (3.2-5.0); Alkaline Phosphatase 77 U/L (45-117); Anion Gap 9 (5-15); BUN 20 mg/dL (7-18); BUN/Creat Ratio 26.3 RATIO (10-20); Bilirubin, Direct 0.18 mg/dL (0.00-0.30); Calcium,Total 8.8 mg/dL (8.5-10.1); Chloride 108 mmol/L (98-107); Creatinine, Serum 0.76 mg/dL (0.55-1.02); EST Glomerular Filtration Rate 77 mL/min (>60); Est Glom Filt Rate - Afr Amer 93 mL/min (>60); Globulin 3.3 g/dL (2.2-4.2); Glucose 83 mg/dL (74-106); Phosphorus 3.3 mg/dL (2.5-4.9); Potassium 3.7 mmol/L (3.5-5.1); Protein, Total 6.5 g/dL (6.4-8.2); Sodium Level 141 mmol/L (136-145)
== END ==
LOC: OLS.WHLEAS 05:00
PROVIDERS: PCP Family Medicine; Visit Provider Internal Medicine
DX: R78.81 Bacteremia (principal); I51.81 Takotsubo syndrome; I25.2 Old myocardial infarction; M62.561 Muscle wasting and atrophy, not elsewhere classified, right lower leg; M62.562 Muscle wasting and atrophy, not elsewhere classified, left lower leg
CPT/HCPCS: 36415; 80053; 82248; 84100; 85025

== ENCOUNTER → 2024-05-08 05:00 | Outpatient (REF) | payer MEDICARE, SELFPAY ==
[2024-05-08 07:20] LABS: Absolute Lymphocyte Count 1.41 X10^3/uL (0.83-4.51); Absolute Neutrophil Count 1.3 X10^3/uL (2.0-7.7); Basophil# 0.04 X10^3/uL; Basophil% 1.3 % (0-1); Eosinophil# 0.08 X10^3/uL; Eosinophils% 2.6 % (0-5); Hematocrit 36.6 % (37-47); Hemoglobin 11.4 g/dL (12.0-15.0); Lymphocyte # 1.41 X10^3/ul (0.83-4.51); Mean Corp Hgb Conc 31.1 g/dL (32-36); Mean Corpuscular Hgb 31.4 pg (27.0-32.0); Mean Corpuscular Volume 100.8 fL (81-99); Mean Platelet Vol. 10.8 fl (6.2-12.0); Monocyte# 0.28 X10^3/uL; Monocyte% 8.9 % (0-10); NRBC Flagged by Analyzer 0 % (0-5); Neutrophil # 1.32 X10^3/uL (2.7-7.7); Neutrophil % 42.2 % (47-70); Platelet Count 169 K/mm3 (150-450); RBC Distribution Width CV 14.3 % (11.6-14.6); Red Blood Count 3.63 M/mm3 (4.2-5.4); White Blood Count 3.1 K/mm3 (4.4-11.0)
[2024-05-08 07:55] LABS: AST(SGOT) 15 U/L (15-37); Alanine Aminotransfer ALT/SGPT 9 U/L (13-56); Albumin, Serum 3.5 g/dL (3.2-5.0); Alkaline Phosphatase 78 U/L (45-117); Anion Gap 8 (5-15); BUN 28 mg/dL (7-18); BUN/Creat Ratio 39.5 RATIO (10-20); Bilirubin, Direct 0.13 mg/dL (0.00-0.30); Calcium,Total 9.3 mg/dL (8.5-10.1); Chloride 106 mmol/L (98-107); Creatinine, Serum 0.71 mg/dL (0.55-1.02); EST Glomerular Filtration Rate 83 mL/min (>60); Est Glom Filt Rate - Afr Amer 101 mL/min (>60); Globulin 3.4 g/dL (2.2-4.2); Glucose 97 mg/dL (74-106); Potassium 3.8 mmol/L (3.5-5.1); Protein, Total 6.9 g/dL (6.4-8.2); Sodium Level 140 mmol/L (136-145)
== END ==
LOC: OLS.WHLEAS 05:00
PROVIDERS: PCP Family Medicine; Visit Provider Internal Medicine
DX: R78.81 Bacteremia (principal)
CPT/HCPCS: 36415; 80053; 82248; 85025

== ENCOUNTER → 2024-05-15 04:00 | Outpatient (REF) | payer MEDICARE, SELFPAY ==
[2024-05-15 08:27] LABS: Absolute Lymphocyte Count 1.28 X10^3/uL (0.83-4.51); Absolute Neutrophil Count 2.8 X10^3/uL (2.0-7.7); Basophil# 0.04 X10^3/uL; Basophil% 0.9 % (0-1); Eosinophils% 2.2 % (0-5); Hematocrit 36.7 % (37-47); Hemoglobin 11.2 g/dL (12.0-15.0); Lymphocyte # 1.28 X10^3/ul (0.83-4.51); Lymphocyte % 27.7 % (19-41); Mean Corp Hgb Conc 30.5 g/dL (32-36); Mean Corpuscular Volume 101.7 fL (81-99); Mean Platelet Vol. 10.2 fl (6.2-12.0); Monocyte# 0.37 X10^3/uL; NRBC Flagged by Analyzer 0 % (0-5); Neutrophil # 2.82 X10^3/uL (2.7-7.7); Platelet Count 147 K/mm3 (150-450); RBC Distribution Width SD 52.4 fl (35.1-43.9); Red Blood Count 3.61 M/mm3 (4.2-5.4); White Blood Count 4.6 K/mm3 (4.4-11.0)
[2024-05-15 09:46] LABS: ALB/GLOB Ratio 0.9 RATIO (0.9-2.4); AST(SGOT) 12 U/L (15-37); Alanine Aminotransfer ALT/SGPT 8 U/L (13-56); Albumin, Serum 3.1 g/dL (3.2-5.0); Alkaline Phosphatase 71 U/L (45-117); Anion Gap 7 (5-15); BUN 14 mg/dL (7-18); BUN/Creat Ratio 18.9 RATIO (10-20); Bilirubin, Direct 0.19 mg/dL (0.00-0.30); Calcium,Total 8.9 mg/dL (8.5-10.1); Chloride 109 mmol/L (98-107); Cholesterol 126 mg/dL (200); Creatinine, Serum 0.74 mg/dL (0.55-1.02); EST Glomerular Filtration Rate 79 mL/min (>60); Est Glom Filt Rate - Afr Amer 96 mL/min (>60); Globulin 3.6 g/dL (2.2-4.2); Glucose 80 mg/dL (74-106); High Density Lipoprotein 61 mg/dL; Phosphorus 3.6 mg/dL (2.5-4.9); Potassium 3.9 mmol/L (3.5-5.1); Protein, Total 6.7 g/dL (6.4-8.2); Sodium Level 142 mmol/L (136-145); Thyroid Stim Hormone (TSH) 0.374 uIU/mL (0.358-3.740); Triglycerides 120 mg/dL; Very Low Density Lipoprotein 24 mg/dL (5-40)
== END ==
LOC: OLS.WHLEAS 04:00
PROVIDERS: PCP Family Medicine; Visit Provider Internal Medicine
DX: R78.81 Bacteremia (principal)
CPT/HCPCS: 36415; 80053; 80061; 82248; 84100; 84443; 85025

== ENCOUNTER → 2024-05-22 | Outpatient (REF) | payer MEDICARE, SELFPAY ==
[2024-05-22 07:43] LABS: Absolute Lymphocyte Count 1.38 X10^3/uL (0.83-4.51); Absolute Neutrophil Count 0.9 X10^3/uL (2.0-7.7); Basophil# 0.05 X10^3/uL; Basophil% 1.8 % (0-1); Eosinophil# 0.09 X10^3/uL; Eosinophils% 3.3 % (0-5); Hematocrit 36.5 % (37-47); Hemoglobin 10.8 g/dL (12.0-15.0); Lymphocyte # 1.38 X10^3/ul (0.83-4.51); Mean Corp Hgb Conc 29.6 g/dL (32-36); Mean Corpuscular Hgb 31.4 pg (27.0-32.0); Mean Corpuscular Volume 106.1 fL (81-99); Mean Platelet Vol. 9.9 fl (6.2-12.0); Monocyte# 0.35 X10^3/uL; Monocyte% 12.7 % (0-10); NRBC Flagged by Analyzer 0 % (0-5); Neutrophil # 0.89 X10^3/uL (2.7-7.7); Neutrophil % 32.2 % (47-70); POSITIVE DIFFERENTIAL YES; Platelet Count 136 K/mm3 (150-450); RBC Distribution Width CV 13.8 % (11.6-14.6); RBC Distribution Width SD 54.2 fl (35.1-43.9); Red Blood Count 3.44 M/mm3 (4.2-5.4); White Blood Count 2.8 K/mm3 (4.4-11.0)
[2024-05-22 08:04] LABS: Differential Indicated SCAN CRITERIA MET
[2024-05-22 08:22] LABS: ALB/GLOB Ratio 0.9 RATIO (0.9-2.4); AST(SGOT) 13 U/L (15-37); Alanine Aminotransfer ALT/SGPT 11 U/L (13-56); Alkaline Phosphatase 63 U/L (45-117); Anion Gap 7 (5-15); BUN 15 mg/dL (7-18); BUN/Creat Ratio 22.7 RATIO (10-20); Calcium,Total 8.8 mg/dL (8.5-10.1); Chloride 111 mmol/L (98-107); Creatinine, Serum 0.66 mg/dL (0.55-1.02); EST Glomerular Filtration Rate 90 mL/min (>60); Est Glom Filt Rate - Afr Amer 109 mL/min (>60); Globulin 3.3 g/dL (2.2-4.2); Glucose 85 mg/dL (74-106); Potassium 3.8 mmol/L (3.5-5.1); Protein, Total 6.3 g/dL (6.4-8.2); Sodium Level 141 mmol/L (136-145)
[2024-05-22 10:03] LABS: Differential Comment SCANNED; Platelet Estimate SLT DEC (ADEQ); Red Cell Morphology NORM C+C NORMAL (NORM C&C)
== END ==
LOC: OLS.WHLEAS 05:00
PROVIDERS: PCP Family Medicine; Visit Provider Internal Medicine
DX: R78.81 Bacteremia (principal); I25.2 Old myocardial infarction; I51.81 Takotsubo syndrome
CPT/HCPCS: 36415; 80053; 85025

== ENCOUNTER → 2024-06-19 04:00 | Outpatient (REF) | payer MEDICARE, SELFPAY ==
[2024-06-19 07:43] LABS: Absolute Lymphocyte Count 1.54 X10^3/uL (0.83-4.51); Absolute Neutrophil Count 1.4 X10^3/uL (2.0-7.7); Basophil# 0.04 X10^3/uL; Basophil% 1.2 % (0-1); Eosinophil# 0.07 X10^3/uL; Hematocrit 34.7 % (37-47); Hemoglobin 11.2 g/dL (12.0-15.0); Lymphocyte # 1.54 X10^3/ul (0.83-4.51); Lymphocyte % 44.8 % (19-41); Mean Corp Hgb Conc 32.3 g/dL (32-36); Mean Corpuscular Hgb 32.1 pg (27.0-32.0); Mean Corpuscular Volume 99.4 fL (81-99); Mean Platelet Vol. 10.5 fl (6.2-12.0); Monocyte# 0.34 X10^3/uL; Monocyte% 9.9 % (0-10); NRBC Flagged by Analyzer 0 % (0-5); Neutrophil # 1.44 X10^3/uL (2.7-7.7); Neutrophil % 41.8 % (47-70); Platelet Count 168 K/mm3 (150-450); RBC Distribution Width CV 13.7 % (11.6-14.6); RBC Distribution Width SD 49.5 fl (35.1-43.9); Red Blood Count 3.49 M/mm3 (4.2-5.4); White Blood Count 3.4 K/mm3 (4.4-11.0)
[2024-06-19 08:25] LABS: AST(SGOT) 11 U/L (15-37); Alanine Aminotransfer ALT/SGPT 13 U/L (13-56); Albumin, Serum 3.3 g/dL (3.2-5.0); Alkaline Phosphatase 70 U/L (45-117); Anion Gap 5 (5-15); BUN 17 mg/dL (7-18); BUN/Creat Ratio 19.9 RATIO (10-20); Bilirubin, Direct 0.22 mg/dL (0.00-0.30); Chloride 109 mmol/L (98-107); Creatinine, Serum 0.85 mg/dL (0.55-1.02); EST Glomerular Filtration Rate 67 mL/min (>60); Est Glom Filt Rate - Afr Amer 81 mL/min (>60); Globulin 3.2 g/dL (2.2-4.2); Glucose 91 mg/dL (74-106); Phosphorus 3.2 mg/dL (2.5-4.9); Potassium 3.9 mmol/L (3.5-5.1); Protein, Total 6.5 g/dL (6.4-8.2); Sodium Level 142 mmol/L (136-145)
== END ==
LOC: OLS.WHLEAS 04:00
PROVIDERS: PCP Family Medicine; Referring Provider Internal Medicine; Visit Provider Internal Medicine
DX: R78.81 Bacteremia (principal); I51.81 Takotsubo syndrome; I25.2 Old myocardial infarction; M62.561 Muscle wasting and atrophy, not elsewhere classified, right lower leg; M62.562 Muscle wasting and atrophy, not elsewhere classified, left lower leg
CPT/HCPCS: 36415; 80053; 82248; 84100; 85025

== ENCOUNTER → 2024-08-07 05:00 | Outpatient (REF) | payer MEDICARE, SELFPAY ==
[2024-08-07 08:55] LABS: Cholesterol 133 mg/dL (200); High Density Lipoprotein 62 mg/dL; Thyroid Stim Hormone (TSH) 0.257 uIU/mL (0.358-3.740); Triglycerides 130 mg/dL; Very Low Density Lipoprotein 26 mg/dL (5-40)
== END ==
LOC: OLS.WHLEAS 05:00
PROVIDERS: PCP Family Medicine; Visit Provider Internal Medicine
DX: E78.5 Hyperlipidemia, unspecified (principal)
CPT/HCPCS: 36415; 80061; 84443

== ENCOUNTER → 2024-09-03 13:00 | Outpatient (REF) | payer MEDICARE, SELFPAY ==
[2024-09-04 07:51] LABS: Bacteria 0 SEEN /hpf (None Seen); Mucous, Urine 0 SEEN /hpf (<or=2+)
[2024-09-04 08:07] LABS: Color, Urine Yellow (Yellow); Glucose, Dipstick Normal (Normal); Ketone-Dipstick Negative (Negative); Leukocyte Esterase-Dipstick 500 /ul (Negative); Nitrite-Dipstick Positive (Negative); Occult Blood-Urine 25 /ul (Negative); Protein-Dipstick 30 mg/dl (Negative); Specific Gravity, Urine 1.015 (1.002-1.030); Urine Bilirubin Dipstick Negative (Negative); Urine Clarity Sl. Cloudy (Clear); Urine Urobilinogen Normal (Normal)
[2024-09-04 08:22] LABS: Red Blood Cells-Urine 0-5 SEEN /hpf (0-5); Squamous Epithelial Cells - UA 5-10 SEEN /hpf (5-10); Transitional Epithelial - Ur 0-5 SEEN /hpf (0-5); White Blood Cells 50-100 SEEN /hpf (0-5); Yeast-Urine 2+ /hpf (None Seen)
== END ==
LOC: OLS.WHLEAS 13:00
PROVIDERS: PCP Family Medicine; Referring Provider Internal Medicine; Visit Provider Internal Medicine
DX: G89.4 Chronic pain syndrome (principal); R30.0 Dysuria
CPT/HCPCS: 81001; 87086; 87088

== ENCOUNTER → 2024-09-14 05:00 | Outpatient (REF) | payer MEDICARE, SELFPAY ==
[2024-09-14 09:57] LABS: Thyroid Stim Hormone (TSH) 0.734 uIU/mL (0.358-3.740)
[2024-09-14 10:00] LABS: Color, Urine Yellow (Yellow); Glucose, Dipstick Normal (Normal); Ketone-Dipstick Negative (Negative); Leukocyte Esterase-Dipstick 500 /ul (Negative); Nitrite-Dipstick Positive (Negative); Occult Blood-Urine 25 /ul (Negative); Protein-Dipstick 15 mg/dl (Negative); Urine Bilirubin Dipstick Negative (Negative); Urine Clarity Sl. Cloudy (Clear); Urine Urobilinogen Normal (Normal); Urine pH 6.5 (5.0 - 8.0)
== END ==
LOC: OLS.WHLEAS 05:00
PROVIDERS: PCP Family Medicine; Visit Provider Internal Medicine
DX: I51.81 Takotsubo syndrome (principal); I10 Essential (primary) hypertension; I35.0 Nonrheumatic aortic (valve) stenosis; E78.5 Hyperlipidemia, unspecified; E03.9 Hypothyroidism, unspecified; E88.09 Other disorders of plasma-protein metabolism, not elsewhere classified
CPT/HCPCS: 36415; 81002; 84443; 87077; 87086; 87088; 87186

== ENCOUNTER → 2024-09-18 05:00 | Outpatient (REF) | payer MEDICARE, SELFPAY ==
[2024-09-18 09:11] LABS: Thyroid Stim Hormone (TSH) 0.307 uIU/mL (0.358-3.740)
== END ==
LOC: OLS.WHLEAS 05:00
PROVIDERS: PCP Family Medicine; Visit Provider Internal Medicine
DX: I51.81 Takotsubo syndrome (principal); I10 Essential (primary) hypertension; I35.0 Nonrheumatic aortic (valve) stenosis; E78.5 Hyperlipidemia, unspecified; E03.9 Hypothyroidism, unspecified; E88.09 Other disorders of plasma-protein metabolism, not elsewhere classified
CPT/HCPCS: 36415; 84443

== ENCOUNTER → 2024-09-25 07:00 | Outpatient (REF) | payer MEDICARE, SELFPAY ==
[2024-09-26 08:01] LABS: Color, Urine Yellow (Yellow); Glucose, Dipstick Normal (Normal); Ketone-Dipstick Negative (Negative); Leukocyte Esterase-Dipstick 500 /ul (Negative); Nitrite-Dipstick Negative (Negative); Occult Blood-Urine 25 /ul (Negative); Protein-Dipstick 15 mg/dl (Negative); Specific Gravity, Urine 1.005 (1.002-1.030); Urine Bilirubin Dipstick Negative (Negative); Urine Clarity Sl. Cloudy (Clear); Urine Urobilinogen Normal (Normal); Urine pH 6.5 (5.0 - 8.0)
== END ==
LOC: OLS.WHLEAS 07:00
PROVIDERS: PCP Family Medicine; Visit Provider Internal Medicine
DX: I51.81 Takotsubo syndrome (principal); I10 Essential (primary) hypertension; I35.0 Nonrheumatic aortic (valve) stenosis; E78.5 Hyperlipidemia, unspecified; E03.9 Hypothyroidism, unspecified; E88.09 Other disorders of plasma-protein metabolism, not elsewhere classified; N39.0 Urinary tract infection, site not specified
CPT/HCPCS: 81002; 87077; 87086; 87088

== ENCOUNTER → 2024-09-27 14:30 | Outpatient (REF) | payer MEDICARE, SELFPAY ==
[2024-09-27 19:06] LABS: Color, Urine Yellow (Yellow); Glucose, Dipstick Normal (Normal); Ketone-Dipstick Negative (Negative); Leukocyte Esterase-Dipstick 500 /ul (Negative); Nitrite-Dipstick Negative (Negative); Occult Blood-Urine 25 /ul (Negative); Protein-Dipstick 30 mg/dl (Negative); Urine Bilirubin Dipstick Negative (Negative); Urine Clarity Sl. Cloudy (Clear); Urine Urobilinogen Normal (Normal)
== END ==
LOC: OLS.WHLEAS 14:30
PROVIDERS: PCP Family Medicine; Visit Provider Internal Medicine
DX: N39.0 Urinary tract infection, site not specified (principal)
CPT/HCPCS: 81002; 87086

== ENCOUNTER → 2024-10-16 | Outpatient (REF) | payer MEDICARE, SELFPAY ==
[2024-10-16 06:19] LABS: Absolute Lymphocyte Count 1.11 X10^3/uL (0.83-4.51); Absolute Neutrophil Count 1.4 X10^3/uL (2.0-7.7); Basophil# 0.05 X10^3/uL; Basophil% 1.7 % (0-1); Eosinophil# 0.15 X10^3/uL; Hematocrit 34.4 % (37-47); Hemoglobin 10.8 g/dL (12.0-15.0); Lymphocyte # 1.11 X10^3/ul (0.83-4.51); Lymphocyte % 36.6 % (19-41); Mean Corp Hgb Conc 31.4 g/dL (32-36); Mean Corpuscular Hgb 32.2 pg (27.0-32.0); Mean Corpuscular Volume 102.7 fL (81-99); Mean Platelet Vol. 10.3 fl (6.2-12.0); Monocyte# 0.36 X10^3/uL; Monocyte% 11.9 % (0-10); NRBC Flagged by Analyzer 0 % (0-5); Neutrophil # 1.35 X10^3/uL (2.7-7.7); Neutrophil % 44.5 % (47-70); Platelet Count 162 K/mm3 (150-450); RBC Distribution Width CV 13.8 % (11.6-14.6); RBC Distribution Width SD 52.4 fl (35.1-43.9); Red Blood Count 3.35 M/mm3 (4.2-5.4)
[2024-10-16 07:47] LABS: ALB/GLOB Ratio 1.2 RATIO (0.9-2.4); AST(SGOT) 17 U/L (<=31); Alanine Aminotransfer ALT/SGPT 6 U/L (<=34); Albumin, Serum 3.6 g/dL (3.4-4.8); Alkaline Phosphatase 64 U/L (35-104); Anion Gap 13 (5-15); BUN 16 mg/dL (4-19); BUN/Creat Ratio 22.3 RATIO (10-20); Calcium,Total 8.9 mg/dL (7.6-11.0); Carbon Dioxide 22.7 mmol/L (21.0-32.0); Chloride 107 mmol/L (98-108); EST Glomerular Filtration Rate 84 (>60); Globulin 2.9 g/dL (2.2-4.2); Glucose 83 mg/dL (70-99); Phosphorus 3.2 mg/dL (2.7-4.5); Potassium 3.9 mmol/L (3.3-5.1); Protein, Total 6.5 g/dL (5.9-8.4); Sodium Level 142 mmol/L (133-145); Total Bilirubin 0.34 mg/dL (0.00-1.30)
== END ==
LOC: OLS.WHL 05:00
PROVIDERS: PCP Family Medicine; Visit Provider Internal Medicine
DX: R78.81 Bacteremia (principal); I51.81 Takotsubo syndrome; I25.2 Old myocardial infarction; M62.561 Muscle wasting and atrophy, not elsewhere classified, right lower leg; M62.562 Muscle wasting and atrophy, not elsewhere classified, left lower leg
CPT/HCPCS: 36415; 80053; 82248; 84100; 85025

== ENCOUNTER → 2024-10-30 | Outpatient (REF) | payer MEDICARE, SELFPAY ==
[2024-10-30 23:41] LABS: Cholesterol 129 mg/dL (<=200); High Density Lipoprotein 58 mg/dL; Low Density Lipoprotein Calc. 47 mg/dL; Triglycerides 117 mg/dL; Very Low Density Lipoprotein 23 mg/dL (5-40); cholesterol:hdl ratio screen 2.22
== END ==
LOC: OLS.WHLEAS 05:00
PROVIDERS: PCP Family Medicine; Visit Provider Internal Medicine
DX: E78.5 Hyperlipidemia, unspecified (principal); I10 Essential (primary) hypertension; E03.9 Hypothyroidism, unspecified
CPT/HCPCS: 36415; 80061; 84443

== ENCOUNTER → 2024-11-02 | Outpatient (REF) | payer MEDICARE, SELFPAY ==
[2024-11-02 08:22] LABS: Vitamin B12 412 pg/mL (180-914)
== END ==
LOC: OLS.WHLEAS 05:00
PROVIDERS: PCP Family Medicine; Visit Provider Internal Medicine
DX: I51.81 Takotsubo syndrome (principal); I10 Essential (primary) hypertension; I35.0 Nonrheumatic aortic (valve) stenosis; E78.5 Hyperlipidemia, unspecified; E03.9 Hypothyroidism, unspecified; E88.09 Other disorders of plasma-protein metabolism, not elsewhere classified; F03.90 Unspecified dementia, unspecified severity, without behavioral disturbance, psychotic disturbance, mood disturbance, and anxiety
CPT/HCPCS: 36415; 82607

== ENCOUNTER → 2024-12-05 | Outpatient (REF) | payer MEDICARE, MEDICAID, SELFPAY ==
[2024-12-06 15:52] LABS: Color, Urine Straw (Yellow); Glucose, Dipstick Normal (Normal); Ketone-Dipstick Negative (Negative); Leukocyte Esterase-Dipstick 500 /ul (Negative); Nitrite-Dipstick Positive (Negative); Occult Blood-Urine 25 /ul (Negative); Urine Bilirubin Dipstick Negative (Negative); Urine Clarity Cloudy (Clear); Urine Urobilinogen Normal (Normal)
[2024-12-07 16:31] LABS: Protein-Dipstick 15 mg/dl (Negative)
== END ==
LOC: OLS.WHLEAS 11:20
PROVIDERS: PCP Family Medicine; Visit Provider Internal Medicine
DX: R30.0 Dysuria (principal)
CPT/HCPCS: 81002; 87086; 87088; 87186

== ENCOUNTER → 2024-12-11 | Outpatient (REF) | payer MEDICARE, SELFPAY | LOC: OLS.WHLEAS 05:00 | PROVIDERS: PCP Family Medicine; Visit Provider Internal Medicine | DX: E03.9 Hypothyroidism, unspecified (principal) | CPT/HCPCS: 36415; 84443 ==

== ENCOUNTER → 2025-01-18 05:00 | Outpatient (REF) | payer MEDICARE, MEDICAID, SELFPAY ==
--- OUTSIDE RECORDS SUMMARY | 2025-01-18 04:34 | XMS RPT_ITS | CCD ---
Author Organization [facility] Care Team Providers Care Ribbon Inker Name Role Phone Carl Encarnacion MD Primary Care Provider [phone] Carl Encarnacion MD Primary Care Provider [phone] Jose Rafael RN, Korin Unavailable Unavailable Wilmar Forbes DO Unavailable JAKE MOREJON, EKATERINA Rhodes Primary Care Physician [phone] Dr. Carl Encarnacion Primary Care Provider Dr. Smith Ho Emergency Provider [phone] Kelby Aguilar Admit Provider Dr. Kelby Aguilar Attending Provider [phone] Dr. Kelby Aguilar Other Provider Carl Encarnacion MD Primary Care Provider DARCI MSN, MONORAIL HELPER, [facility] Primary Care Physici an Carl Encarnacion MD Primary Care Provider [phone] ELIOT CASTILLO Admitting Unavailable CARL ENCARNACION Primary Care Unavailable ELIOT CASTILLO Attending Unavailable CARL ENCARNACION Primary Care Unavailable CARL ENCARNACION Primary Care Unavailable KRISTEN EUGENE Attending Unavailable CARL ENCARNACION Primary Care Unavailable KRISTEN EUGENE Referring Unavailable CARL ENCARNACION Primary Care Unavailable CARL ENCARNACION Referring Unavailable MASCWILMAR Babcock Referring Unavailable WILMAR FORBES Attending Unavailable CARL ENCARNACION Primary Care Unavailable CARL ENCARNACION Primary Care Unavailable CARL ENCARNACION Primary Care Unavailable MASCLisbeth, WILMAR A Referring Unavailable CARL ENCARNACION Primary Care Unavailable MASCLisbeth, WILMAR A Referring Unavailable CARL ENCARNACION A Primary Care Unavailable MASCI, WILMAR A Referring Unavailable ALEJANDRA, CARL A Primary Care Unavailable KRISTEN EUGENE Referring Unavailable AMERICA CAMEJO Attending Unavailable ALEJANDRA, CARL A Primary Care Unavailable EUGENE, KRISTEN Referring Unavailable ALEJANDRA, CARL A Primary Care Unavailable PROSPER AMADOR Attending Unavailable ALEJANDRA, CARL A Primary Care Unavailable ALEJANDRA, CARL A Attending Unavailable MIKC EUGENEE Referring Unavailable ALEJANDRA, CARL A Primary Care Unavailable WILMAR FORBES Referring Unavailable ALEJANDRA, CARL A Primary Care Unavailable ALEJANDRA, CARL A Primary Care Unavailable KRISTEN EUGENE Attending Unavailable ALEJANDRA, CARL A Primary Care Unavailable WILMAR FORBES Attending Unavailable ANNMARIE MENDOZA Referring Unavailabl e ALEJANDRA, CARL A Primary Care Unavailable ALEJANDRA, CARL A Referring Unavailable ALEJANDRA, CARL A Primary Care Unavailable SUPPESTER SILVA Attending Unavailable ALEJANDRA, CARL A Primary Care Unavailable ALEJANDRA, CARL A Primary Care Unavailable ALEJANDRA, CARL A Referring Unavailable ALEJANDRA, CARL A Primary Care Unavailable ALEJANDRA, CARL A Primary Care Unavailable ELIOT CASTILLO Referring Unavailable ALEJANDRA, CARL A Primary Care Unavailable ALEJANDRA, CARL A Primary Care Unavailable ELIOT CASTILLO Referring Unavailable ELIOT CASTILLO Attending Unavailable AMADEO MOREJON FACP, USMAN Jorge Admitting Unavail able SUPPAN MSN, MONORAIL HELPER, ESTER Primary Care Unav ailable PLUNK DO, ANNELIESE Attending Unavailable AMADEO MOREJON FACP, USMAN Jorge Admitting Unavail able SUPPAN MSN, MONORAIL HELPER, ESTER Primary Care Unav ailable PLUNK DO, ANNELIESE Attending Unavailable CARL ENCARNACION MD Attending Unavailable SUPPAN MSN, MONORAIL HELPER, ESTER Primary Care Unav ailable PLUNK DOANNELIESE Admitting Unavailable SUPPAN MSN, MONORAIL HELPER, ESTER Primary Care Unav ailable ESTELA VICENTE MD, DR LINDA HONEYCUTT Consulting Unavaila addison PHIPPS MD, DRE Attending Unavailable SANDHYA MOREJON, CANIDDA Consulting Unavailable NUHA MOREJON, DR MARION Consulting Donaldo DANG MD, CIPRIANO Consulting Unavailable ASHOK WALLER MD, DR RAYMUNDO Attending UnaMINISTERIO Hoang MD Primary Care Unavailable ASHOK WALLER MD, DR RAYMUNDO Attending Unav EKATERINA Moreira MD Primary Care Unavailable GLADYS FERNANDEZ-KACI, STEFANO Prather Admitting Unavai layton BEJARANO MSN, MONORAIL HELPER, [facility] Primary Care Unav ailable ANNELIESE CHAIREZ DO Attending Unavailable ASHOK WALLER MD, DR RAYMUNDO Attending Unav ailable DARCI MSN, MONORAIL HELPER, [facility] Care Unav wayne Encarnacion MD, Dr. Mtzrey Primary Care Provider Lasha Pro MD Attending Provider Unavaildavid Tavares FOOD INSPECTOR-CSavi Attending Provider Lasha Pro MD Referring Provider Unavaildavid Pro MD, Dr. Colby Attending Provider Jim Valentin Attending Provider [phone] Koram, Marilee Michelle Admitting Unavailable Hector Anderson Consulting Unavailable [facility], Carl Primary Care Unavailable Marilee Avitia Attending Unavailable Oleghe OLS Efewongbe Attending Unavailabl e Alejandra, Carl Primary Care Unavailable Oleghe OLS Efewongbe Referring Unavailabl e Oleghe OLS Efewongbe Attending Unavailabl e Alejandra, Carl Primary Care Unavailable Oleghe OLS, Efewongbe Attending Unavailabl e Alejandra, Carl Primary Care Unavailable Oleghe OLS, Efewongbe Attending Unavailabl e Alejandra, Carl Primary Care Unavailable Oleghe OLS, Efewongbe Attending Unavailabl e Alejandra, Carl Primary Care Unavailable Oleghe OLS, Efewongbe Attending Unavailabl e Alejandra, Carl Primary Care Unavailable Oleghe OLS, Efewongbe Attending Unavailabl e Alejandra, Carl Primary Care Unavailable Oleghe OLS, Efewongbe Attending Unavailabl e Alejandra, Carl Primary Care Unavailable Oleghe OLS, Efewongbe Attending Unavailabl e Alejandra, Carl Primary Care Unavailable Oleghe OLS, Efewongbe Attending Unavailabl e Alejandra, Carl Primary Care Unavailable Oleghe OLS, Efewongbe Attending Unavailabl e Alejandra, Carl Primary Care Unavailable Oleghe OLS, Efewongbe Attending Unavailabl e Alejandra, Carl Primary Care Unavailable Oleghe OLS, Efewongbe Attending Unavailabl e Alejandra, Carl Primary Care Unavailable Oleghe OLS, Efewongbe Attending Unavailabl e Alejandra, Carl Primary Care Unavailable Oleghe OLS, Efewongbe Attending Unavailabl e Alejandra, Carl Primary Care Unavailable Oleghe OLS, Efewongbe Attending Unavailabl e Alejandra, Acrl Primary Care Unavailable Oleghe OLS, Efewongbe Referring Unavailabl e Oleghe OLS, Efewongbe Attending Unavailabl e Alejandra, Carl Primary Care Unavailable Oleghe OLS, Efewongbe Referring Unavailabl e Oleghe OLS, Efewongbe Attending Unavailabl e Alejandra, Carl Primary Care Unavailable Oleghe OLS, Efewongbe Attending Unavailabl e Alejandra, Carl Primary Care Unavailable Oleghe OLS, Efewongbe Attending Unavailabl e Alejandra, Carl Primary Care Unavailable Oleghe, Efewongbe Attending Unavailable Alejandra, Carl Primary Care Unavailable Oleghe OLS, Efewongbe Attending Unavailabl e Alejandra, Carl Primary Care Unavailable Jim Valentin Attending Unavailable Alejandra, Carl Primary Care Unavailable Oleghe, Efewongbe Attending Unavailable Alejandra, Carl Primary Care Unavailable Monica, [place] Attending Unavailable Alejandra, Carl Primary Care Unavailable [place]ton FOOD INSPECTOR, Savi Attending Unavailable Alejandra, Carl Primary Care Unavailable [place] FOOD INSPECTOR, Savi Attending Unavailable Alejandra, Carl Primary Care Unavailable Juan Rton FOOD INSPECTOR, Savi Attending Unavailable Alejandra, Carl Primary Care Unavailable Juan Rton FOOD INSPECTOR, Savi Attending Unavailable Alejandra, Carl Primary Care Unavailable Alejandra, Carl Referring Unavailable Ronen Espinoza Attending Unavailable Alejandra, Carl Primary Care Unavailable Sujata Mejia Attending Unavailable Alejandra, Carl Primary Care Unavailable [place] FOOD INSPECTOR, Savi Attending Unavailable Alejandra, Carl Primary Care Unavailable Koram, Marilee Michelle Attending Unavailable Monica, [place] Consulting Unavailable Alejandra, Carl Primary Care Unavailable Koram, Marilee Michelle Admitting Unavailable Koram, Marilee Michelle Consulting Unavailable [place] FOOD INSPECTOR, Savi Attending Unavailable Alejandra, Carl Primary Care Unavailable Oleghe, Efewongbe Attending Unavailable Alejandra, Carl Primary Care Unavailable Oleghe, Efewongbe Attending Unavailable Alejandra, Carl Primary Care Unavailable Jim Valentin Attending Unavailable Alejandra, Carl Primary Care Unavailable Alejandra, Carl Primary Care Unavailable Oleghe, Efewongbe Attending Unavailable [place] FOOD INSPECTOR, Savi Attending Unavailable [facility] Unavailable Jean FOOD INSPECTOR, Radha Attending Unavailable [facility] Unavailable Monica, [place] Referring Unavailable Monica Hector Attending Unavailable [facility] Unavailable Anusha FOOD INSPECTOR, Savi Attending Unavailable [facility] Unavailable Oleghe OLS, Efewongbe Attending Unavailabl e [facility] Unavailable Oleghe OLS, Efewongbe Attending [facility]availabl e [facility] Oleghe OLS, Efewongbe Referring Unavailabl e Oleghe OLS, Efewongbe Attending [facility] Oleghe OLS, Efewongbe Attending [facility]ailabl e [facility] Unavailable Oleghe OLS, Efewongbe Attending [facility]availabl e [facility] Unavailable Oleghe OLS, Efewongbe Attending [facility]availabl e [facility] Unavailable Oleghe OLS, Efewongbe Attending [facility]availabl e [facility] Unavailable Allergies Allergy Classification Reported Allergen(s) Allergy Type Date of Onset Reaction(s) Facility NITROFURANTOIN, MACROCRYSTALS / Nitrofurantoin, Monohydrate (4 sources) NITROFURANTOIN, MACROCRYSTALS / Nitrofurantoin, Monohydrate; Translations: [nitrofurantoin] Drug Allergy 3 GI Upset, Upset stomach (finding) [facility] Work Phone: (20 sources) NITROFURANTOIN, MACROCRYSTALS / Nitrofurantoin, Monohydrate; Translations: [nitrofurantoin] Drug Allergy 3 GI Upset, Upset stomach (finding) [facility] Work Phone: (3 sources) Ciprofloxacin Drug Allergy 4 nausea and felt loopy [facility] (3 sources) Nitrofurantoin Drug Allergy 4 Vomiting [facility] Comment on above: GI upset, nausea, vo miting and diarrhea. (1 source) Ciprofloxacin Drug Allergy 5 [facility] (1 source) Nitrofurantoin Drug Allergy 5 [facility] Medications Current Medications Medication Drug Class(es) Dates Sig (Normalized) Sig (Original) acetaminophen 650 mg oral tablet (20 sources) Start: 02-14-2024 acetaminophen Dose : 650 mg = 2 tab(s), Oral, q6hWA, PRN Pain, scale 1-10, 0 Refill(s) Start Date: 02/14/24 Status: Ordered Start: 04-14-2023 take 1-2 tablets by mouth every six hours acetaminophen (TYLENOL) 500 mg tablet Take 1-2 tablets by mouth every 6 hours. 0 04/14/2023 Active Comment on above: Take 1-2 tablets by mouth every 6 hours. ampicillin 2000 mg injection (1 source) Penicillin-class Antibacterial Start: 02-14-20 ampicillin 2 g IVPB injection IV Piggyback, q4h, 0 Refill(s), 76.8 Start Date: 02/14/24 Status: Ordered Calcium (1 source) Phosphate Binder, Calcium Start: 03-26-20 calcium (as carbonate) 500 mg oral tablet 1, 0 Refill(s) Start Date: 03/26/23 Status: Ordered calcium carbonate 1250 mg / cholecalciferol 200 unt oral tablet (20 sources) Vitamin D Start: 11-25-19 End: 12-14-19 Calcium Carbonate-Vitamin D3 (Calcium 500 + D) 500 mg(1,250mg) -200 unit Tablet Active 1 {tbl} PO DAILY May 09, 2021 12:00am Comment on above: Take one(1) tablet t wo(2) times daily. carvedilol 3.125 mg oral tablet (8 sources) alpha-Adrenergic Amy, beta-Adrenergic Amy Start: 01-22-20 take 1 tablet by mouth twice daily Carvedilol 3.125 mg Tablet Active 3.125 mg PO TWICE A DAY January 22, 2024 12:00am cefTRIAXone 2000 mg injection (1 source) Cephalosporin Antibacterial Start: 02-14-20 cefTRIAXone 2 g injection IV Push (INT), q12h, 0 Refill(s), 76.8 Start Date: 02/14/24 Status: Ordered cephalexin 500 mg oral tablet (7 sources) Cephalosporin Antibacterial Start: 09-01-19 take 1 tablet by mouth twice daily Cephalexin 500 mg tablet Active 500 mg PO TWICE A DAY September 01, 2024 1:00am Start: 11-26-2023 End: 01-20-2024 take 1 capsule by mouth every eight hours Cephalexin 500 mg Capsule Discontinued 500 mg PO EVERY 8 HOURS 0 3 November 26, 2023 12:00am January 20, 2024 3:35pm cholecalciferol 0.025 mg oral capsule (13 sources) Vitamin D Start: 12-14-2023 take 1 capsule by mouth once daily Cholecalciferol, Vitamin D3, 25 mcg (1,000 unit) cap Take 1 capsule by mouth once daily. 0 12/14/2023 Active ciprofloxacin 500 mg oral tablet (4 sources) Quinolone Antimicrobial Start: 01-06-2024 End: 01-13-2024 take 1 tablet by mouth twice daily ciprofloxacin HCl (CIPRO) 500 mg tablet Indications: Recurrent UTI (urinary tract infection) Take 1 tablet by mouth two times a day for 7 days. 14 tablet 0 01/06/2024 01/13/2024 Active docusate sodium 100 mg oral capsule (20 sources) Start: 04-14-2023 take 1 capsule by mouth every twelve hours as needed docusate sodium (COLACE) 100 mg capsule Take 1 capsule by mouth twice daily as needed. 0 04/14/2023 Active Comment on above: Take 1 capsule by [facility] twice daily as needed. 0.4 ml enoxaparin sodium 100 mg/ml prefilled syringe (2 sources) Low Molecular Weight Heparin Start: 04-15-2023 End: 05-05-2023 inject 40 mg by subcutaneous injection every twenty-four hours enoxaparin (LOVENOX) 40 mg/0.4 mL Inject 0.4 mL subcutaneously every 24 hours for 20 days. 8 mL 0 04/15/2023 05/05/2023 Active Comment on above: Inject 0.4 mL subcut aneously every 24 hours for 20 days. furosemide 20 mg oral tablet (16 sources) Loop Diuretic Start: 12-08-2023 take 1 tablet by mouth once daily as needed Furosemide 20 mg tablet Active 20 mg PO DAILY as needed for swelling January 20, 2024 12:00am levothyroxine sodium 0.088 mg oral tablet (20 sources) l-Thyroxine Start: 03-26-2023 levothyroxine 88 mcg (0.088 mg) oral tablet See Instructions, 1 tab(s) Oral Mon-Sat Hold Sun, 0 Refill(s) Start Date: 03/26/23 Status: Ordered Start: 02-05-2021 End: 05-01-2023 Levothyroxine 88 mcg tablet Active 88 ug PO MOTUWETHFRSA May 09, 2021 12:00am Comment on above: take one tablet by m outh wednesday through wednesday and none on wednesday. lovastatin 40 mg oral tablet (20 sources) HMG-CoA Reductase Inhibitor Start: 03-26-2023 take 1 tablet by mouth at bedtime Lovastatin 40 mg tablet Active 40 mg PO AT BEDTIME January 20, 2024 12:00am Start: 12-15-2021 End: 02-08-2023 take 1 tablet by mouth once daily at bedtime for hyperlipidemia lovastatin 40 mg tablet Take 1 tablet by mouth daily at bedtime. For cholesterol. 90 tablet 1 06/26/2022 02/08/2023 Discontinued Start: 09-15-2021 End: 12-15-2021 take 1 tablet by mouth once daily at bedtime for hyperlipidemia lovastatin (MEVACOR) 20 mg tablet Take 1 tablet by mouth daily at bedtime. For cholesterol. 90 tablet 1 12/12/2021 12/15/2021 Discontinued Start: 05-09-2021 End: 01-20-2024 take 2 tablets by mouth once daily Lovastatin 20 mg ta blet Discontinued 40 mg PO DAILY May 09, 2021 12:00am January 20, 2024 12:56pm Start: 05-09-2021 take 40 mg by mouth once daily Lovastatin Active 40 MG PO DAILY May 09, 2021 12:00am Comment on above: Take 1 tablet by xuan th daily at bedtime. For cholesterol. melatonin 3 mg oral tablet (1 source) Start: 2023 melatonin 3 mg oral tablet Dose : 3 mg = 1 tab(s), Oral, qHS, PRN Sleep, 0 Refill(s) Start Date: 02/14/24 Status: Ordered methylPREDNISolone (2 sources) Corticosteroid Start: 2021 End: 2021 methylPREDNISolone (MEDROL, IKE,) 4 mg Dose-Pack Follow dosing instructions, take with food. 21 tablet 0 06/26/2022 07/02/2022 Active Comment on above: Follow dosing instru ctions, take with food. Multivitamin preparation (6 sources) Start: 2022 take 1 tablet by mouth once daily Multivitamin Dose = 1 tab(s), Oral, Daily, 0 Refill(s) Start Date: 03/26/23 Status: Ordered Start: 05-09-2021 take 1 tablet by [facility] once daily Multivitamin Active 1 TABLET PO DAILY May 09, 2021 12:00am Multivitamin Tablet (3 sources) Start: 05-09-2021 Multivitamin Tablet Active 1 {tbl} PO DAILY May 09, 2021 12:00am nitrofurantoin, macrocrystals 25 mg / nitrofurantoin, monohydrate 75 mg oral capsule (2 sources) Nitrofuran Antibacterial Start: 11-14-2021 End: 11-21-2021 take 1 capsule by mouth twice daily at mealtime nitrofurantoin monohydrate and macrocrystal (MACROBID) 100 mg capsule Take 1 capsule by mouth twice daily with meals for 7 days. 14 capsule 0 11/14/2021 11/21/2021 Active Comment on above: Take 1 capsule by [facility] twice daily with meals for 7 days. omeprazole 20 mg delayed release oral capsule (20 sources) Proton Pump Inhibitor Start: 07-15-2020 End: 02-08-2023 take 1 capsule by mouth once daily Omeprazole 20 mg Capsule,Delayed Release(Dr/Ec) Active 20 mg PO DAILY May 09, 2021 12:00am Comment on above: Take 1 capsule by [facility] once daily. perflutren lipid microspheres 1.3 mL in NaCl (PF) 0.9% 10 mL injection (DEFINITY) (20 sources) Start: 03-22-2023 End: 06-20-2024 perflutren lipid microspheres 1.3 mL in NaCl (PF) 0.9% 10 mL injection (DEFINITY) Start: 06-18-2021 End: 09-17-2022 perflutren lipid microsphere s 1.3 mL in NaCl (PF) 0.9% 10 mL injection (DEFINITY) potassium phosphate 155 mg / sodium phosphate, dibasic 852 mg / sodium phosphate, monobasic 130 mg oral tablet (20 sources) Start: 04-14-2023 take 1 tablet by mouth twice daily phosphorus (K PHOS NEUTRAL) 250 mg tablet Take 1 tablet by mouth twice daily. 0 04/14/2023 Active Comment on above: Take 1 tablet by xuan twice daily. predniSONE 10 mg oral tablet (9 sources) Start: 01-27-2023 End: 02-05-2023 predniSONE (DELTASONE) 10 mg tablet Take 4 tabs daily for 3 days, then 2 tabs daily for 3 days, then 1 tab daily for 3 days with food. 21 tablet 0 01/27/2023 02/05/2023 Active Start: 01-15-2023 End: 01-24-2023 predniSONE (DELTASONE) 10 mg tablet Take 4 tabs daily for 3 days, then 2 tabs daily for 3 days, then 1 tab daily for 3 days with food. 21 tablet 0 01/15/2023 01/24/2023 Active Start: 07-19-2022 End: 07-24-2022 take 2 tablets by mouth once daily predniSONE (DELTASONE) 20 mg tablet Take 2 tablets by mouth once daily for 5 days. 10 tablet 07/19/2022 07/24/2022 Start: 12-12-2021 End: 12-24-2021 predniSONE (DELTASONE) 10 mg tablet Take 4 tabs daily x 3 days, then 3 tabs x 3 days, 2 tabs x 3 days, then 1 tab x3 days with food. 30 tablet 0 12/12/2021 12/24/2021 Active Comment on above: Take 4 tabs daily x 3 days, then 3 tabs x 3 days, 2 tabs x 3 days, then 1 tab x3 days with food. Take 2 tablets by mo [facility] once daily for 5 days. Take 4 tabs daily fo r 3 days, then 2 tabs daily for 3 days, then 1 tab daily for 3 days with food. prochlorperazine 10 mg oral tablet (20 sources) Phenothiazine Start: 2022 End: 2022 take 1 tablet by mouth every six hours as needed for nausea and vomiting prochlorperazine (COMPAZINE) 10 mg tablet Indications: 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 (HCC) Take 1 tablet by mouth every 6 hours as needed (For chemotherapy induced nausea and vomiting). 30 tablet 2 06/04/2023 Active Comment on above: Take 1 tablet by xuan every 6 hours as needed. Take 1 tablet by xuan th every 6 hours as needed (For chemotherapy induced nausea and vomiting). sennosides, prison 8.6 mg oral tablet (1 source) Start: 2023 senna (sennosides) 8.6 mg oral tablet Dose : 8.6 mg = 1 tab(s), Oral, BID, 0 Refill(s) Start Date: 02/14/24 Status: Ordered 125 ml sodium chloride 9 mg/ml prefilled syringe (20 sources) Start: 2022 End: 2023 sodium chloride 0.9 % (flush) 10 mL (BD POSIFLUSH) Start: 06-18-2021 End: 09-17-2022 sodium chloride 0.9 % (flush ) 10 mL (BD POSIFLUSH) sulfamethoxazole 800 mg / trimethoprim 160 mg oral tablet (6 sources) Dihydrofolate Reductase Inhibitor Antibacterial, Sulfonamide Antimicrobial Start: 01-07-2024 End: 01-10-2024 take 1 tablet by mouth twice daily sulfamethoxazole-trimethoprim (BACTRIM DS) 800-160 mg per tablet Indications: Recurrent UTI (urinary tract infection) Take 1 tablet by mouth two times a day for 3 days. 6 tablet 0 01/07/2024 01/10/2024 Active Start: 12-16-2023 End: 12-21-2023 take 1 tablet by mouth twice daily sulfamethoxazole-trimethoprim (BACTRIM D S) 800-160 mg per tablet Indications: Recurrent UTI (urinary tract infection) Take 1 tablet by mouth two times a day for 5 days. 10 tablet 0 12/16/2023 12/21/2023 Start: 01-21-2023 End: 01-28-2023 take 1 tablet by mouth twice daily sulfamethoxazole-trimethoprim (BACTRIM D S) 800-160 mg per tablet Take 1 tablet by mouth twice daily for 7 days. 14 tablet 0 01/21/2023 01/28/2023 Active Comment on above: Take 1 tablet by xuan th twice daily for 7 days. THERAPEUTIC MULTIVITAMIN TAB (20 sources) Start: 01-31-2008 take 1 tablet by mouth once daily THERAPEUTIC MULTIVITAMIN TAB Take 1 tablet by mouth once daily. 0 01/31/2008 Active Start: 01-31-2008 THERAPEUTIC MU LTIVITAMIN TAB daily 0 01/31/2008 Suspended Start: 01-31-2008 THERAPEUTIC MU LTIVITAMIN TAB daily 0 01/31/2008 Active Comment on above: daily Take 1 tablet by xuan th once daily. traMADol hydrochloride 50 mg oral tablet (20 sources) Opioid Agonist Start: 09-27-2024 take 1 tablet by mouth every six hours as needed for pain Tramadol 50 mg tablet Active 50 mg PO EVERY 6 HOURS as needed for pain September 27, 2024 1:00am Start: 09-27-2024 End: 11-01-2024 take 1 tablet by mouth once daily Tramadol 50 mg tablet Active 50 mg PO daily November 01, 2024 9:32am Start: 09-16-2021 End: 09-27-2024 take 1 tablet by mouth twice daily as needed for pain Tramadol 50 mg Tablet Discontinued 50 mg PO TWICE A DAY as needed for Pain Score 1-10 January 22, 2024 12:00am September 27, 2024 10:14am Start: 05-09-2021 End: 05-17-2021 take 1 tablet by mouth twice daily Tramadol 50 mg tablet Discontinued 50 mg PO TWICE A DAY May 09, 2021 12:00am May 17, 2021 11:49am Comment on above: Take 1 tablet by xuan twice daily for 90 days. for arthritis pain. Do not start before September 16, 2021. Take 1 tablet by xuan twice daily for 90 days. for arthritis pain. Take 1 tablet by xuan twice daily for 90 days. for arthritis pain. Do not start before December 09, 2022. Take 1 tablet by xuan two times a day for 90 days. for arthritis pain. Take 1 tablet by xuan two times a day for 90 days. for arthritis pain. Do not start before July 11, 2023. Take 1 tablet by xuan two times a day for 30 days. for arthritis pain. vitamin b12 0.5 mg oral tablet (20 sources) Vitamin B12 Start: 12-14-2023 take 1 tablet by mouth once daily cyanocobalamin (VITAMIN B-12) 500 mcg tablet Take 1 tablet by mouth once daily. 0 12/14/2023 Active End: 12-14-2023 take 1 tablet by mouth once daily cyanocobalamin (VITAMIN B-12) 1,000 mcg tab Take 1,000 mcg by mouth once daily. 0 12/14/2023 Discontinued (Adjust Sig - Block E-Cancel) Comment on above: Take 1,000 mcg by [facility] once daily. Vitamin D3 (1 source) Start: 03-26-2023 Vitamin D3 qDa y, one tab daily, 0 Refill(s) Start Date: 03/26/23 Status: Ordered Completed/Discontinued Medications Medication Drug Class(es) Dates Sig (Normalized) Sig (Original) acetaminophen 325 mg / HYDROcodone bitartrate 5 mg oral tablet (10 sources) Opioid Agonist Start: 01-12-2023 End: 11-26-2023 Hydrocodone-Acetami nophen 5-325 mg tablet Discontinued 1 {tbl} PO EVERY 6 HOURS NEEDED as needed for Pain 05 11January 12, 2023 November 26, 2023 1:47pm Start: 01-12-2023 End: 11-26-2023 take 1 tablet by mouth every six hours as needed Hydrocodone-Acetaminophen Discontinued 1 TABLET PO EVERY 6 HOURS NEEDED 05 11January 12, 2023 November 26, 2023 1:47pm Start: 01-12-2023 End: 01-27-2023 HYDROcodone-acetaminophen (N ORCO) 5-325 mg per tablet amoxicillin 875 mg / clavulanate 125 mg oral tablet (3 sources) Penicillin-class Antibacterial Start: 07-19-2022 End: 07-26-2022 take 1 tablet by mouth twice daily amoxicillin-clavulanic acid (AUGMENTIN) 875-125 mg per tablet Take 1 tablet by mouth twice daily for 7 days. 14 tablet 07/19/2022 07/26/2022 Comment on above: Take 1 tablet by mouth twice daily for 7 days. apixaban 5 mg oral tablet (20 sources) Factor Xa Inhibitor Start: 07-16-2021 End: 03-22-2023 take 1 tablet by mouth twice daily ELIQUIS 5 mg tab(s) Take 1 tablet by mouth twice daily. 90 tablet 1 07/16/2021 03/22/2023 Discontinued (Course of therapy completed) Start: 05-17-2021 End: 06-05-2021 take 2 tablets by mouth twice daily, then take 1 tablet by mouth twice daily Apixaban (Eliquis) 5 mg tablet Discontinued 10 mg PO TWICE A DAY May 17, 2021 4:47pm June 05, 2021 7:39pm 2 tabs BID through 05/24/2021, then 1 tab BID for 6 months. Comment on above: Take 1 tablet by xuan twice daily. aspirin 81 mg chewable tablet (20 sources) Platelet Aggregation Inhibitor, Nonsteroidal Anti-inflammatory Drug Start: 01-22-2024 End: 01-27-2024 aspirin 81 mg oral tablet, chewable Dose : 81 mg = 1 tab(s), Oral, BID, # 30 tab(s), 0 Refill(s) Start Date: 01/22/24 Stop Date: 01/27/24 Status: Ordered Start: 05-31-2023 take 1 tablet by xuan at breakfast Aspirin 81 mg Tablet,Delayed Release (Dr/Ec) Active 81 mg PO WITH BREAKFAST January 22, 2024 12:00am Comment on above: Take 1 tablet by xuan once daily. atenolol 25 mg oral tablet (7 sources) beta-Adrenergic Amy Start: 05-09-20 End: 06-05-20 take 1 tablet by mouth once daily Atenolol 25 mg tablet Discontinued 25 mg PO DAILY May 09, 2021 12:00am June 05, 2021 7:39pm baclofen 10 mg oral tablet (3 sources) gamma-Aminobutyric Acid-ergic Agonist Start: 01-16-20 End: 01-28-20 take 1 tablet by mouth every eight hours as needed baclofen (LIORESAL) 10 mg tablet Take 1 tablet by mouth three times daily as needed (muscle spasms). 30 tablet 0 01/15/2023 01/27/2023 Discontinued Comment on above: Take 1 tablet by xuan three times daily as needed (muscle spasms). bisacodyl 5 mg delayed release oral tablet (9 sources) Stimulant Laxative Start: 03-22-20 Bisacodyl (DULCOLAX) 5 mg tab Indications: Ovarian mass , Preop examination Take 1 tablet by mouth as directed. Take 2 tablets at 3pm the day before surgery 2 tablet 0 03/22/2023 Suspended Comment on above: Take 1 tablet by xuan as directed. Take 2 tablets at 3pm the day before surgery cefdinir 300 mg oral capsule (3 sources) Cephalosporin Antibacterial Start: 01-22-20 End: 09-01-19 take 1 capsule by mouth twice daily Cefdinir 300 mg capsule Discontinued 300 mg PO TWICE A DAY January 22, 2024 12:00am September 01, 2024 5:25pm dexamethasone 4 mg oral tablet (14 sources) Corticosteroid Start: 05-17-20 End: 06-05-20 take 6 mg by mouth once daily Dexamethasone 4 mg tablet Discontinued 6 mg PO DAILY May 17, 2021 4:47pm June 05, 2021 7:39pm last dose on 05/18/2021 Start: 05-17-2021 End: 06-05-2021 take 6 mg by mouth once daily Dexamethasone Discontinu ed 6 MG PO DAILY May 17, 2021 4:47pm June 05, 2021 7:39pm last dose on 05/18/2021 doxycycline hyclate 100 mg oral tablet (3 sources) Tetracycline-class Drug Start: 07-19-2022 End: 07-26-2022 take 1 tablet by mouth twice daily doxycycline (VIBRA-TABS) 100 mg tablet Take 1 tablet by mouth twice daily for 7 days. 14 tablet 07/19/2022 07/26/2022 Comment on above: Take 1 tablet by xuan twice daily for 7 days. Glucosamine Hcl-Vitamin D3 (4 sources) Start: 05-09-2021 End: 06-05-2021 take 1 tablet by mouth once daily Glucosamine Hcl-Vitamin D3 Discontinued 1 TABLET PO DAILY May 09, 2021 12:00am June 05, 2021 7:39pm Glucosamine Hcl-Vitamin D3 1,000-200 mg-unit Tablet (3 sources) Start: 05-09-2021 End: 06-05-2021 Glucosamine Hcl-Vitamin D3 1,000-200 mg-unit Tablet Discontinued 1 {tbl} PO DAILY May 09, 2021 12:00am June 05, 2021 7:39pm nabumetone 500 mg oral tablet (20 sources) Nonsteroidal Anti-inflammatory Drug Start: 11-04-2018 End: 01-15-2023 take 1 tablet by mouth every twelve hours as needed nabumetone (RELAFEN) 500 mg tablet Take 1 tablet by mouth twice daily as needed. 11/04/2018 01/15/2023 Discontinued Comment on above: Take 1 tablet by xuan th twice daily as needed. NIFEdipine (20 sources) Dihydropyridine Calcium Channel Amy Start: 12-11-2023 End: 12-11-2023 Procardia XL Start: 12/11/23 9:00:00 AM EDT, Dose = 30 mg, = 1 tab(s), Oral, 0, 11/26/23 17:36:00 EDT Start Date: 12/11/23 Stop Date: 12/11/23 Status: Completed Start: 03-26-2023 NIFEdipine (Eq v-Procardia XL) 30 mg oral tablet, extended release Dose : 30 mg = 1 tab(s), Oral, qDay, # 30 tab(s), 0 Refill(s) Start Date: 03/26/23 Status: Ordered Start: 12-12-2021 End: 01-25-2024 take 1 tablet by mouth once daily Nifedipine 30 mg tablet extended release 24hr Discontinued 30 mg PO DAILY January 12, 2023 12:00am January 22, 2024 1:28pm Start: 05-09-2021 End: 06-05-2021 take 1 tablet by mouth once daily Nifedipine 30 mg tablet extended release 24hr Discontinued 30 mg PO DAILY May 09, 2021 12:00am June 05, 2021 7:39pm Comment on above: Take 1 tablet by xuan th once daily. ondansetron 4 mg disintegrating oral tablet (7 sources) Serotonin-3 Receptor Antagonist Start: 04-14-20 End: 06-04-20 take 1 tablet by mouth every six hours as needed ondansetron orally disintegrating (ZOFRAN ODT) 4 mg disintegrating tablet Take 1 tablet by mouth every 6 hours as needed. 0 04/14/2023 06/04/2023 Discontinued (Course of therapy completed) Comment on above: Take 1 tablet by xuan th every 6 hours as needed. oxyCODONE hydrochloride 5 mg oral tablet (6 sources) Opioid Agonist Start: 04-14-20 End: 06-03-20 take 1 tablet by mouth every six hours as needed oxyCODONE IR (ROXICODONE) 5 mg immediate release tablet Take 1 tablet by mouth every 6 hours as needed. 0 04/14/2023 06/03/2023 Discontinued Comment on above: Take 1 tablet by xuan th every 6 hours as needed. polyethylene glycol 3350 45905 mg powder for oral solution (9 sources) Osmotic Laxative Start: 03-22-20 polyethylene glycol 3350 (MIRALAX) 17 gram/dose powder Indications: Ovarian mass , Preop examination Purchase one 238 gram bottle of Miralax Use as directed 238 g 0 03/22/2023 Suspended Comment on above: Purchase one 238 gra m bottle of Miralax Use as directed tiZANidine 2 mg oral capsule (17 sources) Central alpha-2 Adrenergic Agonist Start: 02-09-20 End: 04-12-20 take 1 capsule by mouth every twelve hours as needed tiZANidine HCl (ZANAFLEX) 2 mg capsule Take 1 capsule by mouth twice daily as needed. 15 capsule 0 02/08/2023 04/12/2023 Discontinued Start: 01-27-2023 End: 02-08-2023 take 1 capsule by mouth every eight hours as needed tiZANidine HCl (ZANAFLEX) 2 mg capsule Take 1 capsule by mouth three times daily as needed. 15 capsule 0 02/02/2023 02/08/2023 Discontinued Comment on above: Take 1 capsule by mo uth three times daily as needed. Take 1 capsule by mo uth twice daily as needed. 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] Onset: 3 05-03-2023 Chronic Congestive heart failure; nonhypertensive (1 source) Chronic diastolic heart failure; Translations: [Chronic diastolic (congestive) heart failure] Chronic Coronary atherosclerosis and other heart disease (3 sources) History of non-ST segment elevation myocardial infarction; Translations: [Old myocardial infarction] Onset: 4 01-25-2024 Chronic Deficiency and other anemia (20 sources) Iron deficiency anemia; Translations: [Iron deficiency anemia, unspecified] Onset: 9 Resolved: 8 11-04-2018 Episodic Deficiency and other anemia (1 source) Anemia; Translations: [Anemia, unspecified] Episodic Delirium, dementia, and amnestic and other cognitive disorders (20 sources) Senile asthenia; Translations: [Age-related physical debility] Onset: 1 06-18-2021 Chronic Disorders of lipid metabolism (20 sources) Mixed hyperlipidemia; Translations: [Mixed hyperlipidemia] Onset: 1 07-12-2015 Chronic E Codes: Fall (20 sources) Fall; Translations: [Unspecified fall, initial encounter] Onset: 3 01-12-2023 Episodic Esophageal disorders (20 sources) Gastroesophageal reflux disease without esophagitis; Translations: [Gastro-esophageal reflux disease without esophagitis] Onset: 5 08-04-2021 Chronic Essential hypertension (20 sources) Essential hypertension; Translations: [Essential (primary) hypertension] Onset: 6 08-28-2016 Chronic Fever of unknown origin (2 sources) Fever; Translations: [Fever, unspecified] Onset: 4 Episodic Genitourinary symptoms and ill-defined conditions (3 sources) Increased frequency of urination; Translations: [Frequency of micturition] Onset: 5 Episodic Heart valve disorders (20 sources) Nonrheumatic aortic (valve) stenosis; Translations: [Aortic valve disorders] Onset: 2 12-19-2021 Chronic Hypertension with complications and secondary hypertension (1 source) Hypertensive heart failure; Translations: [Hypertensive heart disease with heart failure] Chronic Osteoarthritis (20 sources) Osteoarthritis of multiple joints ; Translations: [Polyosteoarthritis, unspecified] Onset: 5 05-05-2017 Chronic Other aftercare (1 source) Surgical follow-up; Translations: [Encounter for surgical aftercare following surgery on the genitourinary system] 05-31-2023 Episodic Other and ill-defined heart disease (6 sources) Takotsubo cardiomyopathy; Translations: [Takotsubo syndrome] Onset: 4 01-25-2024 Chronic Other and ill-defined heart disease (2 sources) Takotsubo syndrome; Translations: [Takotsubo syndrome] Onset: 4 Chronic Other connective tissue disease (5 sources) Rhabdomyolysis; Translations: [Rhabdomyolysis] 11-23-2023 Episodic Other connective tissue disease (2 sources) Rhabdomyolysis; Translations: [Rhabdomyolysis] 11-23-2023 Episodic Other female genital disorders (3 sources) Mass of ovary; Translations: [Other noninflammatory disorders of ovary, fallopian tube and broad ligament] 03-16-2023 Episodic Other fractures (1 source) Compression fracture of thoracic spine; Translations: [Wedge compression fracture of T11-T12 vertebra, initial encounter for closed fracture] Episodic Other gastrointestinal disorders (20 sources) Pelvic mass; Translations: [Intra-abdominal and pelvic swelling, mass and lump, unspecified site] Onset: 3 04-07-2023 Episodic Other lower respiratory disease (1 source) Hypoxia; Translations: [Hypoxemia] Episodic Other lower respiratory disease (1 source) Cough; Translations: [Acute cough] Episodic Other lower respiratory disease (2 sources) Wheezing; Translations: [Wheezing] Episodic Other lower respiratory disease (1 source) Cough; Translations: [Acute cough] 07-20-2022 Episodic Other nervous system disorders (1 source) Chronic pain syndrome; Translations: [Chronic pain syndrome] Onset: 5 Chronic Other non-traumatic joint disorders (1 source) Pain in right hip; Translations: [Pain in right hip] Onset: 5 Episodic Other nutritional; endocrine; and metabolic disorders (20 sources) Obese class I; Translations: [Obesity, unspecified] Onset: 3 04-10-2023 Chronic Other nutritional; endocrine; and metabolic disorders (1 source) Other disorders of plasma-protein metabolism, not elsewhere classified; Translations: [Other disorders of plasma-protein metabolism, not elsewhere classified] Onset: 5 Chronic Other skin disorders (2 sources) Eruption; Translations: [Rash and other nonspecific skin eruption] Onset: 4 Episodic Bianca-; endo-; and myocarditis; cardiomyopathy (except that caused by tuberculosis or sexually transmitted disease) (2 sources) Acute and subacute endocarditis, unspecified; Translations: [Acute and subacute endocarditis, unspecified] Onset: 4 Episodic Pulmonary heart disease (1 source) Pulmonary hypertension; Translations: [Pulmonary hypertension, unspecified] Chronic Pulmonary heart disease (20 sources) Pulmonary embolism; Translations: [Other pulmonary embolism without acute cor pulmonale] Onset: 1 06-06-2021 Episodic Residual codes; unclassified (1 source) Confusional state; Translations: [Disorientation, unspecified] Episodic Residual codes; unclassified (1 source) Postoperative state; Translations: [Other specified postprocedural states] 05-03-2023 Episodic Residual codes; unclassified (1 source) Not for resuscitation; Translations: [Do not resuscitate] Episodic Respiratory failure; insufficiency; arrest (adult) (20 sources) Acute respiratory failure; Translations: [Acute respiratory failure with hypoxia] Onset: 1 Resolved: 2 05-25-2021 Episodic Spondylosis; intervertebral disc disorders; other back problems (1 source) Sacroiliitis, not elsewhere classified; Translations: [Sacroiliitis, not elsewhere classified] Onset: 5 Chronic Sprains and strains (7 sources) Lower back injury; Translations: [Strain of muscle, fascia and tendon of lower back, initial encounter] 01-12-2023 Episodic Thyroid disorders (20 sources) Acquired hypothyroidism; Translations: [Hypothyroidism, unspecified] Onset: 5 07-12-2015 Chronic Unclassified (2 sources) Severe aortic valve stenosis 03-26-2023 Urinary tract infections (17 sources) Recurrent urinary tract infection; Translations: [Urinary tract infection, site not specified] Onset: 4 Episodic Viral infection (20 sources) COVID-19; Translations: [Pneumonia due to other virus not elsewhere classified] Onset: 1 Resolved: 4 06-18-2021 Episodic Past or Other Problems Problem Classification Problem Date Documented Da te Episodic/Chronic Abdominal hernia (20 sources) Hiatal hernia; Translations: [Diaphragmatic hernia without obstruction or gangrene] Onset: 06-18-2021 06-18-2021 Episodic Administrative/social admission (20 sources) Advance directive discussed with patient; Translations: [Other specified counseling] Onset: 06-26-2022 Episodic Gastritis and duodenitis (18 sources) Acute gastritis; Translations: [Acute gastritis without bleeding] Onset: 02-14-2009 Resolved: 12-07-2014 12-07-2014 Episodic Heart valve disorders (12 sources) Heart murmur; Translations: [Cardiac murmur, unspecified] Onset: 06-18-2021 06-18-2021 Episodic Immunizations and screening for infectious disease (20 sources) Blood group antibody titer - finding; Translations: [Other specified abnormal immunological findings in serum] Onset: 04-02-2023 04-02-2023 Episodic Malaise and fatigue (19 sources) Asthenia; Translations: [Other malaise] Onset: 11-27-2023 05-17-2021 Episodic Other aftercare (3 sources) Drug therapy finding; Translations: [Other intermediate (current) drug therapy] Onset: 08-28-2016 05-10-2018 Episodic Other aftercare (20 sources) Patient encounter status; Translations: [Other intermediate (current) drug therapy] Onset: 02-26-2017 09-20-2018 Episodic Other aftercare (1 source) Other intermediate (current) drug therapy; Translations: [Medication management] Onset: 09-20-2018 Episodic Other bone disease and musculoskeletal deformities (20 sources) Osteopenia; Translations: [Other specified disorders of bone density and structure, unspecified site] Onset: 11-24-2006 02-27-2016 Episodic Other connective tissue disease (18 sources) Enthesopathy of hip region; Translations: [Other specified enthesopathies of unspecified lower limb, excluding foot] Onset: 10-27-2012 Resolved: 11-28-2012 11-28-2012 Episodic Other connective tissue disease (2 sources) Muscle wasting and atrophy, not elsewhere classified, right lower leg; Translations: [Muscle wasting and atrophy, not elsewhere classified, right lower leg] Onset: 06-05-2024 Episodic Other connective tissue disease (2 sources) Muscle wasting and atrophy, not elsewhere classified, left lower leg; Translations: [Muscle wasting and atrophy, not elsewhere classified, left lower leg] Onset: 06-05-2024 Episodic Other diseases of kidney and ureters (20 sources) Hydronephrosis; Translations: [Other hydronephrosis] Onset: 03-10-2023 03-10-2023 Episodic Other female genital disorders (20 sources) Mass of right ovary; Translations: [Other noninflammatory disorders of ovary, fallopian tube and broad ligament] Onset: 03-10-2023 03-10-2023 Episodic Other female genital disorders (1 source) Other noninflammatory disorders of ovary, fallopian tube and broad ligament; Translations: [Ovarian mass] Onset: 04-07-2023 Episodic Other gastrointestinal disorders (1 source) Intra-abdominal and pelvic swelling, mass and lump, unspecified site; Translations: [Pelvic mass] Onset: 03-09-2023 Episodic Other non-traumatic joint disorders (20 sources) Pain in right knee; Translations: [Pain in joint, lower leg] Onset: 10-29-2017 05-10-2018 Episodic Other non-traumatic joint disorders (18 sources) Arthralgia of the pelvic region and thigh; Translations: [Pain in unspecified hip] Onset: 10-27-2012 Resolved: 11-28-2012 11-28-2012 Episodic Spondylosis; intervertebral disc disorders; other back problems (20 sources) Acute back pain with sciatica; Translations: [Lumbago with sciatica, right side] Onset: 05-13-2016 08-28-2016 Episodic Results Test Name Value Interpretation Reference Range Facility HIP, UNI W/ Pelvis 2-3 Views on 12-04-2024 HIP, UNI W/ Pelvis 2-3 Views [facility] [address] [place] [id number] HIP, UNI W/ Pelvis 2-3 Views MR#: [id number] Acct: [id number] Name: STEFANO WASHINGTON Rep #: [id number] : 1940 F 84 From: Cheryl Davies PCP: Dr. Carl Encarnacion MD Status: DEP AMB Study: HIP, UNI W/ Pelvis 2-3 Views Date of Exam: Exam# [id number] Ordering Dr: Ronen Espinoza DO PROCEDURE: HIP, UNI W/ PELVIS 2-3 VIEWS 12/04/2024 REASON FOR EXAM: RIGHT HIP PAIN TECHNIQUE: AP pelvic view was obtained as well as two views of the right hip. COMPARISON: None FINDINGS: Bones: Diffuse osteopenia of the bony pelvis and both hips is noted. There are no obvious acute fractures or dislocations. There does appear to be partial fusion of the pubic symphysis. Arthritic changes of the SI joints is noted bilaterally. Joints: Very mild arthritic changes are seen involving both hips. Soft tissues: There appears to be a granuloma identified in the soft tissue lateral and inferior to the left hip Other: Surgical clips are projected over the lower abdominal, upper pelvic region. RAD/HIP, UNI W/ Pelvis 2-3 Views IMPRESSION: Diffuse osteopenia of the bony pelvis and both hips is noted. There are no obvious fractures or dislocations. Mild arthritic changes are seen. Reading Location: [id number] CC: Dr. Carl Encarnacion MD; Dr. Ronen Espinoza DO [employer]ist [employer] Attendant: Signed Normal [facility] Orthopedic Visit Reporton Orthopedic Visit Report [facility] [address] [place] [address] [address] [place] [address] OFFICE VISIT Date of Service: 12/04/24 MR#: [id number] Acct: [id number] Name: STEFANO WASHINGTON Rep #: [id number] : 1940 Provider: Dr. Ronen winston DO Age/Sex: 84/F Location[place] [facility] Status: Signed Intake Vital Signs 03/14/24 14:51 12/04/24 15:30 Height 5 ft 5 ft Weight: 175 lb BMI 34.2 Intake Visit Reasons: RIGHT HIP Chief Complaint: Right hip Accompanied by: Daughter Is patient in pain?: Yes Pain scale (1-10): 10 Allergies nitrofurantoin (From Macrobid) Allergy (Mild, Verified 12/04/24 15:34) Vomiting ciprofloxacin Allergy (Unknown, Verified 12/04/24 15:34) nausea and felt loopy Medications ???Medication ???Instructions ???Recorded ???Confirmed ???Type calcium 500 mg (as 1 tab PO DAILY SUPPLEMENT 05/09/21 12/04/24 History carbonate)-vitamin D3 5 mcg (200 unit) tablet (Calcium 500 + D) levothyroxine 88 mcg tablet 88 mcg PO MOTUWETHFRSA Thyroid 08/2912/04/24 History multivitamin 1 tab PO DAILY SUPPLEMENT 05/09/21 12/04/24 History omeprazole 20 mg capsule,delayed 20 mg PO DAILY GERD 05/09/2112/04 History release furosemide 20 mg tablet 20 mg PO DAILY PRN swelling 12/04/24 History lovastatin 40 mg tablet 40 mg PO QHS CHOLESTEROL 01/20/24 12/04/24 History aspirin 81 mg tablet,delayed 81 mg PO BREAKFAST #30 tabs 12/04/24 Rx release carvedilol 3.125 mg tablet 3.125 mg PO BID #60 tabs 01/22/24 12/04/24 Rx cephalexin 500 mg tablet 500 mg PO BID #10 tabs 09/01/24 Rx tramadol 50 mg tablet 50 mg PO Q6H PRN pain #30 tabs 12/04/24 Rx tramadol 50 mg tablet 50 mg PO QDAY #30 tabs 11/25/24 Rx Have you fallen in the past year?: Yes PFSH Medical History Aortic stenosis UTI (urinary tract infection) Non-ST elevation [place] (NSTEMI) Hypertension Chronic pain Rheumatoid arthritis Former smoker High cholesterol GERD (gastroesophageal reflux disease) Hypothyroidism Hypertension Social History household members: children Smoking Status: Former smoker alcohol intake: never substance use type: does not use HPI RIGHT HIP Details: This documentation accurately reflects the service provided and the decisions made by me, Dr. Ronen Espinoza, DO 12/04/24 08. Part of today???s visit was documented by Denny Rodriguez MA, acting as scribe. STEFANO WASHINGTON is a 84 year old F here today for right hip pain. Her pain is located over her right sacroiliac joint. Patient has had pain for about 2 weeks after a fall. She slid out of her wheelchair, landing on her posterior hip. She complains of pain over her posterior hip. She has groin pain but that isnt often and isnt her biggest complaint. She denies any radiating pain. She had a lumbar spine fracture and a kyphoplasty by Dr Hawkins after another fall. She comes to her appointment in a wheelchair and does not walk much. She is able to stand with assistance. Ortho Exam General General: Yes no acute distress Neurologic: Yes alert and Yes oriented x3 Psychologic: Yes reasonable and appropriate Right Hip Skin: Yes CDI, No Ecchymosis, No soft tissue swelling and No Erythema HIP: ttp SI joint. This is her area of concern no ttp greater troch. no groin pain with range of motion. stiffness with IR and ER. Supplemental Info 12/04/2024 x-ray right hip: No acute fracture identified she does have sacroiliac joint arthrosis right greater than left preserved hip joint space with no significant arthrosis of the hip socket 01/12/2023 x-ray lumbar spine: Exaggerated lumbar lordosis. Grade 1 anterolisthesis L4 and L5 secondary to facet joint arthropathy arthritis multilevel degenerative disc disease most significant upper lumbar and appears to be effusion of T12 and T11. Coding Level of Care Code Off vis,new,level 3 Diagnoses Osteoarthritis of sacroiliac joint M46.1 Assessment and Plan Assessment and Plan (1) Osteoarthritis of sacroiliac joint: Orders: Orders HIP, UNI W/ Pelvis 2-3 Views Today M25.551 - Pain in right hip Plan Spoke with the patient about the anatomy of the hip and etiology of her pain. Patient has arthritis of her SI joint which was aggravated after the fall and is likely contributing to her pain. Discus sed SI joint injections under fluoroscopy. Other options are physical therapy, compression over the low back with a sacral belt or back brace, or oral steroid ike. Patient wanted to do the Medrol Dosepak to help with the flare. Patient is at [facility], they will fill that prescription for the Medrol Dosepak as directed (more content not included)... Normal [facility] Vitamin B12 ser/plasOrdered By: Lasha Pro on 11-02-2024 Cobalamin (Vitamin B12) [Mass/Vol] 412 pg/mL 180-914 [facility] Calculated very low density lipoprotein (VLDL) cholesterol measurementOrdered By: Lasha Pro on 10-30-2024 VLDL Cholesterol 23 mg/dL 5-40 [facility] LDL calc ser/plasOrdered By: Lasha Pro on 10-30-2024 LDL Cholesterol, Calculated 47 mg/dL [facility] Comment on above: Vxevruxjzq=062-351 m g/dL & Higher Tfei=608 mg/dL or greater Screening total cholesterol/ high density lipoprotein (HDL) cholesterol ratioOrdered By: Lasha Pro on 10-30-2024 Cholesterol.total/Chol esterol in HDL [Mass ratio] 2.22 {ratio} [facility] Serum or plasma cholesterol in HDL measurement (mass/volume)Ordered By: Lasha Pro on 10-30-2024 Cholesterol in HDL [Mass/Vol] 58 mg/dL >40 [facility] Comment on above: National Cholesterol Education Program (NCEP) guidelines:<40 mg/dL: Low HDL-cholesterol (major risk factor for CHD)>= 60 mg/dL: High HDL-cholesterol (negative risk factor for CHD)HDL-cholesterol is affected by a number of factors, e.g. smoking, exercise, hormones, sex and age. Serum or plasma cholesterol measurement (mass/volume)Ordered By: Lasha Pro on 10-30-2024 Cholesterol [Mass/Vol] 129 mg/dL <201 [facility] Comment on above: Cholesterol level, D esirable <200 mg/dLBorderline high cholesterol 200-239 mg/dLHigh cholesterol >=240 mg/dLRecommendations of the NCEP Adult Treatment Panel for the following risk-cutoff thresholds for the [place] population. TSH DL <= 0.005 mIU/L QnOrde red By: Lasha Pro on 10-30-2024 Thyroid Stimulating Hormone (TSH) 0.870 uIU/mL 0.300-4.20 0 [facility] Triglycerides measurementOrd ered By: Lasha Pro on 10-30-2024 Triglyceride [Mass/Vol] 117 mg/dL <199 [facility] Comment on above: The drugs N-Acetylcy steine and Metamizole may falsely depress this assay. Normal range: <150 mg/dLBorderline High: 150-199 mg/dLHigh: 200-499 mg/dLVery High: >500 mg/dL Absolute neutrophil countOrd ered By: Lasha Pro on 10-16-2024 Neutrophils (Bld) [#/Vol] 1.4 10*3/uL Low 2.0-7.7 [facility] Anion gap in Serum or Plasma Ordered By: Lasha Pro on 10-16-2024 Anion gap [Moles/Vol] 13 mmol/L 5-15 [facility] BUN/creatinine ratioOrdered By: Lasha Pro on 10-16-2024 Urea nitrogen/Creatinine [Mass ratio] 22.3 mg/mg High 10-20 [facility] Basophil percentageOrdered B y: Lasha Pro on 10-16-2024 Basophils/100 WBC (Bld) 1.7 % High 0-1 [facility] Bilirubin directOrdered By: Lasha Pro on 10-16-2024 Bilirubin.direct [Mass/Vol] 0.20 mg/dL 0.00-0.30 [facility] Bilirubin, totalOrdered By: Lasha Pro on 10-16-2024 Bilirubin [Mass/Vol] 0.34 mg/dL 0.00-1.30 [facility] Carbon dioxide, total [Moles /volume] in Central venous bloodOrdered By: Lasha Pro on 10-16-2024 CO2 [Moles/Vol] 22.7 mmol/L 21.0-32.0 [facility] Chloride assayOrdered By: Brittany Pro on 10-16-2024 Chloride [Moles/Vol] 107 mmol/L 98-108 [facility] Eosinophil percentageOrdered By: Lasha Pro on 10-16-2024 Eosinophils/100 WBC (Bld) 5.0 % 0-5 [facility] Erythrocyte distribution wid th (RBC) [Ratio]Ordered By: Lasha Pro on 10-16-2024 Erythrocyte distribution width (RBC) [Entitic vol] 52.4 fL High 35.1-43.9 [facility] Erythrocyte distribution wid th ratioOrdered By: Lasha Pro on 10-16-2024 Erythrocyte distribution width (RBC) [Ratio] 13.8 % 11.6-14.6 [facility] GFR/1.73 sq M.predicted gianna g non-blacks MDRD (S/P/Bld) [Vol rate/Area]Ordered By: Lasha Pro on 10-16-2024 Estimated GFR (MDRD) Non-Af Amer 84 >60 [facility] Comment on above: mL/min/1.73m2 CKD-EP I Creatinine Equation (2020) Hematocrit Auto (Bld) [Volum e fraction]Ordered By: Lasha Pro on 10-16-2024 Hematocrit (Bld) [Volume fraction] 34.4 % Low 37-47 [facility] Hemoglobin measurementOrdere d By: Lasha Pro on 10-16-2024 Hemoglobin (Bld) [Mass/Vol] 10.8 g/dL Low 12.0-15.0 [facility] Immature granulocytes/100 WB C Auto (Bld)Ordered By: Lasha Pro on 10-16-2024 Immature granulocytes/100 WBC (Bld) 0.300 % 0.0-0.9 [facility] Comment on above: IG% - Immature Granu locytes (promyelocytes, myelocytes and metamyelocytes) > 1% indicates that a LEFT SHIFT is Present. Laboratory - Chemistry and C hemistry - challengeOrdered By: Lasha Pro on 10-16-2024 AST [Catalytic activity/Vol] 17 U/L <32 [facility] Lymphocytes Auto (Unsp spec) [#/Vol]Ordered By: Lasha Pro on 10-16-2024 Lymphocytes (Bld) [#/Vol] 1.11 10*3/uL 0.83-4.51 [facility] Lymphocytes/100 WBC Auto (Un sp spec)Ordered By: Lasha Pro on 10-16-2024 Lymphocytes/100 WBC (Bld) 36.6 % 19-41 [facility] MCV (mean corpuscular volume ) determinationOrdered By: Lasha Pro on 10-16-2024 MCV (RBC) [Entitic vol] 102.7 fL High 81-99 [facility] Mean corpuscular hemoglobin (MCH) determinationOrdered By: annmarie Pro on 10-16-2024 MCH (RBC) [Entitic mass] 32.2 pg High 27.0-32.0 [facility] Mean corpuscular hemoglobin concentration (MCHC) determinationOrdered By: Lasha Pro on 10-16-2024 MCHC (RBC) [Mass/Vol] 31.4 g/dL Low 32-36 [facility] Mean platelet volume determi nationOrdered By: Lasha Pro on 10-16-2024 Platelet mean volume (Bld) [Entitic vol] 10.3 fL 6.2-12.0 [facility] Monocyte percentageOrdered B y: Lasha Pro on 10-16-2024 Monocytes/100 WBC (Bld) 11.9 % High 0-10 [facility] Neutrophil percentageOrdered By: Lasha Pro on 10-16-2024 Neutrophils/100 WBC (Bld) 44.5 % Low 47-70 [facility] Nucleated red blood cell per centageOrdered By: Lasha Pro on 10-16-2024 Nucleated RBC/100 WBC (Bld) [Ratio] 0 % 0-5 [facility] Platelet countOrdered By: Brittany Pro on 10-16-2024 Platelets (Bld) [#/Vol] 162 10*3/uL 150-450 [facility] Potassium (Unsp spec) [Mass/ Vol]Ordered By: Lasha Pro on 10-16-2024 Potassium [Moles/Vol] 3.9 mmol/L 3.3-5.1 [facility] RBC Auto (Bld) [#/Vol]Ordere d By: Lasha Pro on 10-16-2024 RBC (Bld) [#/Vol] 3.35 10*6/uL Low 4.2-5.4 [facility] Serum creatinine measurement (mass/volume)Ordered By: Lasha Pro on 10-16-2024 Creatinine [Mass/Vol] 0.70 mg/dL 0.70-1.20 [facility] Serum globulin measurementOr dered By: Lasha Pro on 10-16-2024 Globulin (S) [Mass/Vol] 2.9 g/dL 2.2-4.2 [facility] Serum glucose measurement (m ass/volume)Ordered By: Lasha Pro on 10-16-2024 Glucose [Mass/Vol] 83 mg/dL 70-99 [facility] Serum or plasma alanine valdez otransferase (ALT) measurementOrdered By: Lasha Pro on 10-16-2024 ALT [Catalytic activity/Vol] 6 U/L <35 [facility] Serum or plasma albumin nina urement (mass/volume)Ordered By: Lasha Pro on 10-16-2024 Albumin [Mass/Vol] 3.6 g/dL 3.4-4.8 [facility] Serum or plasma albumin/glob ulin mass ratioOrdered By: Lasha Pro on 10-16-2024 Albumin/Globulin [Mass ratio] 1.2 {ratio} 0.9-2.4 [facility] Serum or plasma alkaline adelaide sphatase measurementOrdered By: Lasha Pro on 10-16-2024 ALP [Catalytic activity/Vol] 64 U/L 35-104 [facility] Serum or plasma calcium nina urement (mass/volume)Ordered By: Lasha Pro on 10-16-2024 Calcium [Mass/Vol] 8.9 mg/dL 7.6-11.0 [facility] Serum or plasma urea nitroge n measurement (mass/volume)Ordered By: Lasha Pro on 10-16-2024 Urea nitrogen [Mass/Vol] 16 mg/dL 4-19 [facility] Serum phosphorus measurement Ordered By: Lasha Pro on 10-16-2024 Phosphorus Level 3.2 mg/dL 2.7-4.5 [facility] Sodium levelOrdered By: Tenzin alstonjocelyne Morteza on 10-16-2024 Sodium [Moles/Vol] 142 mmol/L 133-145 [facility] Total proteinOrdered By: Maikel alexsanderphilip Pro on 10-16-2024 Protein [Mass/Vol] 6.5 g/dL 5.9-8.4 [facility] White blood cell (WBC) count Ordered By: Lasha Pro on 10-16-2024 WBC (Bld) [#/Vol] 3.0 10*3/uL Low 4.4-11.0 [facility] Bilirubin Test strip Ql (U)O rdered By: Savi Tavares on 09-27-2024 Bilirubin Ql (U) Negative Negative [facility] Glucose Ql (U)Ordered By: Angel Tavares on 09-27-2024 Urine Glucose (UA) Normal mg/dl Normal [facility] Ketones Test strip Ql (U)Ord ered By: Savi Tavares on 09-27-2024 Ketones Ql (U) Negative Negative [facility] Nitrite Test strip Ql (U)Ord ered By: Savi Tavares on 09-27-2024 Nitrite Ql (U) Negative Negative [facility] Protein Test strip Ql (U)Ord ered By: Savi Tavares on 09-27-2024 Protein Ql (U) 30 mg/dl High Negative [facility] Urine blood detectionOrdered By: Savi Tavares on 09-27-2024 Urine Occult Blood 25 /ul High Negative [facility] Urine clarityOrdered By: Raheem Tavares on 09-27-2024 Clarity (U) Sl. Cloudy Clear [facility] Urine color determinationOrd ered By: Savi Tavares on 09-27-2024 Color (U) Yellow Yellow [facility] Urine cultureOrdered By: Maikel Pro on 09-27-2024 Bacteria identified Cx Nom (U) Culture exhibits no growth. [facility] Urine leukocyte esterase det ection by dipstickOrdered By: Savi Tavares on 09-27-2024 Leukocyte esterase Test strip Ql (U) 500 /ul High Negative [facility] Urine pHOrdered By: Savi Tavares on 09-27-2024 pH (U) 6.0 [pH] 5.0 - 8.0 [facility] Urine specific gravity measu rementOrdered By: Savi Tavares on 09-27-2024 Specific gravity (U) [Rel density] 1.010 1.002-1.03 0 [facility] Urobilinogen Ql (U)Ordered B y: Savi Tavares on 09-27-2024 Urine Urobilinogen Normal mg/dl Normal [facility] Bilirubin Test strip Ql (U)O rdered By: Lasha Pro on 09-25-2024 Bilirubin Ql (U) Negative Negative [facility] Glucose Ql (U)Ordered By: Brittany Pro on 09-25-2024 Urine Glucose (UA) Normal mg/dl Normal [facility] Ketones Test strip Ql (U)Ord ered By: Lasha Pro on 09-25-2024 Ketones Ql (U) Negative Negative [facility] Nitrite Test strip Ql (U)Ord ered By: Lasha Pro on 09-25-2024 Nitrite Ql (U) Negative Negative [facility] Protein Test strip Ql (U)Ord ered By: Lasha Pro on 09-25-2024 Protein Ql (U) 15 mg/dl High Negative [facility] Urine blood detectionOrdered By: Lasha Pro on 09-25-2024 Urine Occult Blood 25 /ul High Negative [facility] Urine clarityOrdered By: Maikel Pro on 09-25-2024 Clarity (U) Sl. Cloudy Clear [facility] Urine color determinationOrd ered By: Lasha Pro on 09-25-2024 Color (U) Yellow Yellow [facility] Urine cultureOrdered By: Maikel Pro on 09-25-2024 Bacteria identified Cx Nom (U) Positive Abnormal [facility] Urine leukocyte esterase det ection by dipstickOrdered By: Lasha Pro on 09-25-2024 Leukocyte esterase Test strip Ql (U) 500 /ul High Negative [facility] Urine pHOrdered By: Jennie Pro on 09-25-2024 pH (U) 6.5 [pH] 5.0 - 8.0 [facility] Urine specific gravity measu rementOrdered By: Lasha Pro on 09-25-2024 Specific gravity (U) [Rel density] 1.005 1.002-1.03 0 [facility] Urobilinogen Ql (U)Ordered B y: Lasha Pro on 09-25-2024 Urine Urobilinogen Normal mg/dl Normal [facility] TSH QnOrdered By: Lasha Pro on 09-18-2024 Thyroid Stimulating Hormone (TSH) 0.307 uIU/mL Low 0.358-3.74 0 [facility] Bilirubin Test strip Ql (U)O rdered By: Lasha Pro on 09-14-2024 Bilirubin Ql (U) Negative Negative [facility] Glucose Ql (U)Ordered By: Brittany Pro on 09-14-2024 Urine Glucose (UA) Normal mg/dl Normal [facility] Ketones Test strip Ql (U)Ord ered By: Lasha Pro on 09-14-2024 Ketones Ql (U) Negative Negative [facility] Nitrite Test strip Ql (U)Ord ered By: Lasha Pro on 09-14-2024 Nitrite Ql (U) Positive High Negative [facility] Protein Test strip Ql (U)Ord ered By: Lasha Pro on 09-14-2024 Protein Ql (U) 15 mg/dl High Negative [facility] TSH QnOrdered By: Lasha Pro on 09-14-2024 Thyroid Stimulating Hormone (TSH) 0.734 uIU/mL 0.358-3.74 0 [facility] Urine blood detectionOrdered By: Lasha Pro on 09-14-2024 Urine Occult Blood 25 /ul High Negative [facility] Urine clarityOrdered By: Maikel Pro on 09-14-2024 Clarity (U) Sl. Cloudy Clear [facility] Urine color determinationOrd ered By: Lasha Pro on 09-14-2024 Color (U) Yellow Yellow [facility] Urine cultureOrdered By: Maikel Pro on 09-14-2024 Bacteria identified Cx Nom (U) ESBL Escherichia coli Abnormal [facility] Urine leukocyte esterase det ection by dipstickOrdered By: Lasha Pro on 09-14-2024 Leukocyte esterase Test strip Ql (U) 500 /ul High Negative [facility] Urine pHOrdered By: Jennie Pro on 09-14-2024 pH (U) 6.5 [pH] 5.0 - 8.0 [facility] Urine specific gravity measu rementOrdered By: Lasha Pro on 09-14-2024 Specific gravity (U) [Rel density] 1.010 1.002-1.03 0 [facility] Urobilinogen Ql (U)Ordered B y: Lasha Pro on 09-14-2024 Urine Urobilinogen Normal mg/dl Normal [facility] Bilirubin Test strip Ql (U)O rdered By: Lasha Pro on 09-03-2024 Bilirubin Ql (U) Negative Negative [facility] Epithelial cells.squamous LM Ql (Urine sed)Ordered By: Lasha Pro on 09-03-2024 Epithelial cells.squamous LM.HPF (Urine sed) [#/Area] 5 /[HPF] 5-10 [facility] Glucose Ql (U)Ordered By: Brittany Pro on 09-03-2024 Urine Glucose (UA) Normal mg/dl Normal [facility] Ketones Test strip Ql (U)Ord ered By: Lasha Pro on 09-03-2024 Ketones Ql (U) Negative Negative [facility] Microscopic analysis of urin e for red blood cells (RBC)Ordered By: Lasha Pro on 09-03-2024 Urine RBC 0-5 SEEN /hpf 0-5 [facility] Mucus LM Ql (Urine sed)Order ed By: Lasha Pro on 09-03-2024 Mucus Ql (Urine sed) 0 SEEN /hpf [facility] Nitrite Test strip Ql (U)Ord ered By: Lasha Pro on 09-03-2024 Nitrite Ql (U) Positive High Negative [facility] Protein Test strip Ql (U)Ord ered By: Lasha Pro on 09-03-2024 Protein Ql (U) 30 mg/dl High Negative [facility] Transitional cells LM Ql (Ur ine sed)Ordered By: Lasha Pro on 09-03-2024 Urine Transitional Epithelial Cells 0-5 SEEN /hpf 0-5 [facility] Urine blood detectionOrdered By: Lasha Pro on 09-03-2024 Urine Occult Blood 25 /ul High Negative [facility] Urine clarityOrdered By: Maikel Pro on 09-03-2024 Clarity (U) Sl. Cloudy Clear [facility] Urine color determinationOrd ered By: Lasha Pro on 09-03-2024 Color (U) Yellow Yellow [facility] Urine cultureOrdered By: Maikel Pro on 09-03-2024 Bacteria identified Cx Nom (U) Mixed Gram Pos & Gram Neg Org Abnormal [facility] Urine leukocyte esterase det ection by dipstickOrdered By: Lasha Pro on 09-03-2024 Leukocyte esterase Test strip Ql (U) 500 /ul High Negative [facility] Urine pHOrdered By: Jennie Pro on 09-03-2024 pH (U) 6.0 [pH] 5.0 - 8.0 [facility] Urine sediment bacteria coun t by microscopy (number/high power field)Ordered By: Lasha Pro on 09-03-2024 Bacteria LM.HPF (Urine sed) [#/Area] 0 /[HPF] None Seen [facility] Urine specific gravity measu rementOrdered By: Lasha Pro on 09-03-2024 Specific gravity (U) [Rel density] 1.015 1.002-1.03 0 [facility] Urobilinogen Ql (U)Ordered B y: Lasha Pro on 09-03-2024 Urine Urobilinogen Normal mg/dl Normal [facility] White blood cell countOrdere d By: Lasha Pro on 09-03-2024 Urine WBC 50-100 SEEN /hpf 0-5 [facility] Yeast LM.HPF (Urine sed) [#/ Area]Ordered By: Lasha Pro on 09-03-2024 Urine Yeast 2+ /hpf None Seen [facility] High density lipoprotein (HD L) measurementOrdered By: Lasha Pro on 08-07-2024 Cholesterol in HDL [Mass/Vol] 62 mg/dL >40 [facility] Comment on above: The drugs N-Acetylcy steine and Metamizole may falsely depress this assay. Reference Range HDL <40 mg/dL Low HDL Cholesterol HDL >or= 60 mg/dL High HDL Cholesterol Low density lipoprotein (LDL ) cholesterol measurementOrdered By: Lasha Pro on 08-07-2024 Cholesterol in LDL [Mass/Vol] 45 mg/dL 0-130 [facility] Serum or plasma cholesterol measurement (mass/volume)Ordered By: Lasha Pro on 08-07-2024 Cholesterol [Mass/Vol] 133 mg/dL <200 [facility] Comment on above: <200 mg/dL Desirable 200-240 mg/dL Borderline >240 mg/dL High Risk TSH QnOrdered By: Lasha Pro on 08-07-2024 Thyroid Stimulating Hormone (TSH) 0.257 uIU/mL Low 0.358-3.74 0 [facility] Triglycerides measurementOrd ered By: Lasha Pro on 08-07-2024 Triglyceride [Mass/Vol] 130 mg/dL <199 [facility] Comment on above: The drugs N-Acetylcy steine and Metamizole may falsely depress this assay.Serum Triglycerides Reference Interval Normal <150 mg/dL Borderline high 150 - 199 mg/dL High 200 - 499 mg/dL Very High > or = 500 mg/dL Very low density lipoprotein (VLDL) cholesterol measurementOrdered By: Lasha Pro on 08-07-2024 VLDL Cholesterol 26 mg/dL 5-40 [facility] .Auto Diffon 02-14-2024 Basophil, Absolute 0.1 10 3/mcL Normal 0.0-0.3 [facility] ([place]) Comment on above: Performed By: #### M ORPH, CBC, DIFF #### [address] [address] Basophils/100 WBC (Bld) 2.1 % Normal 0.0-2.5 [facility] ([place] Comment on above: Performed By: #### M ORPH, CBC, DIFF #### [address] [address] Eosinophil, Absolute 0.2 10 3/mcL Normal 0.0-0.7 [facility] ([place] Comment on above: Performed By: #### M ORPH, CBC, DIFF #### [address] [address] Eosinophils/100 WBC (Bld) 5.2 % Normal 0.0-6.0 [facility] ([place] Comment on above: Performed By: #### M ORPH, CBC, DIFF #### [address] [address] Lymphocyte, Absolute 1.2 10 3/mcL Normal 0.9-4.3 [facility] ([place] Comment on above: Performed By: #### M ORPH, CBC, DIFF #### [address] [address] Lymphocytes/100 WBC (Bld) 28.4 % Normal 20.0-40.0 [facility] ([place] Comment on above: Performed By: #### M ORPH, CBC, DIFF #### [address] [address] Monocyte, Absolute 0.4 10 3/mcL Normal 0.1-1.4 [facility] ([place] Comment on above: Performed By: #### M ORPH, CBC, DIFF #### [address] [address] Monocytes/100 WBC (Bld) 10.7 % Normal 2.0-13.0 [facility] ([place] Comment on above: Performed By: #### M ORPH, CBC, DIFF #### [address] [address] Neutrophils/100 WBC (Bld) 53.6 % Normal 50.0-75.0 [facility] ([place] Comment on above: Performed By: #### M ORPH, CBC, DIFF #### [address] [address] .GFRon 02-14-2024 GFR >60 Normal [facility] ([place] Comment on above: Result Comment: GFR Population mean for , Non- Americans Ages 20-29 = 116 mL/min/1.73 sq.m. Ages 30-39 = 107 mL/min/1.73 sq.m. Ages 40-49 = 99 mL/min/1.73 sq.m. Ages 50-59 = 93 mL/min/1.73 sq.m. Ages 60-69 = 85 mL/min/1.73 sq.m. Ages 70+ = 75 mL/min/1.73 sq.m. Chronic Kidney Disease: Less than 60 mL/min/1.73 square meters End Stage Renal Disease: Less than 15 mL/min/1.73 square meters Performed By: #### M G, CBC, BMP, ADIFF, ANEU, GFR #### [address] [address] GFR Non- >60 Normal [facility] ([place] Comment on above: Result Comment: GFR Population mean for , Non- Americans Ages 20-29 = 116 mL/min/1.73 sq.m. Ages 30-39 = 107 mL/min/1.73 sq.m. Ages 40-49 = 99 mL/min/1.73 sq.m. Ages 50-59 = 93 mL/min/1.73 sq.m. Ages 60-69 = 85 mL/min/1.73 sq.m. Ages 70+ = 75 mL/min/1.73 sq.m. Chronic Kidney Disease: Less than 60 mL/min/1.73 square meters End Stage Renal Disease: Less than 15 mL/min/1.73 square meters Performed By: #### M G, CBC, BMP, ADIFF, ANEU, GFR #### [address] [address] .NEUABSon 02-14-2024 Neutrophil, Absolute 2.2 10 3/mcL Low 2.3-8.1 [facility] ([place] Comment on above: Performed By: #### M ORPH, CBC, DIFF #### [address] [address] BMPon 02-14-2024 BUN/Creatinine Ratio 17.6 ratio Normal 10.0-22.0 [facility] ([place]) Comment on above: Performed By: #### M ORPH, CBC, DIFF #### [address] [address] Calcium [Mass/Vol] 8.4 mg/dL Low 8.7-10.4 [facility] ([place]) Comment on above: Performed By: #### M ORPH, CBC, DIFF #### [address] [address] Chloride [Moles/Vol] 108 mmol/L Normal 98-110 [facility] ([place]) Comment on above: Performed By: #### M ORPH, CBC, DIFF #### [address] [address] CO2 [Moles/Vol] 30 mmol/L Normal 22-32 [facility] ([place] Comment on above: Performed By: #### M LISA, CBC, DIFF #### [address] [address] Creatinine [Mass/Vol] 0.51 mg/dL Normal 0.50-1.20 [facility] ([place]) Comment on above: Performed By: #### M ORADILENE, CBC, DIFF #### [address] [address] Electrolyte Balance 4.0 mEq/L Normal 4.0-15.0 [facility] ([place] Comment on above: Performed By: #### M LISA, CBC, DIFF #### [address] [address] Glucose [Mass/Vol] 100 mg/dL Normal 82-115 [facility] ([place]) Comment on above: Performed By: #### M LISA, CBC, DIFF #### [address] [address] Potassium [Moles/Vol] 3.7 mmol/L Normal 3.5-5.0 [facility] ([place] Comment on above: Performed By: #### M ORADILENE, CBC, DIFF #### [address] [address] Sodium [Moles/Vol] 142 mmol/L Normal 136-145 [facility] ([place] Comment on above: Performed By: #### M ORADILENE, CBC, DIFF #### [address] [address] Urea nitrogen [Mass/Vol] 9.0 mg/dL Normal 8.0-22.0 [facility] ([place] Comment on above: Performed By: #### M ORADILENE, CBC, DIFF #### [address] [address] CBCon 02-14-2024 Erythrocyte distribution width (RBC) [Ratio] 17.6 % High 11.5-15.5 [facility] ([place] Comment on above: Performed By: #### Mary ORPH, CBC, DIFF #### [address] [address] Hematocrit (Bld) [Volume fraction] 29.4 % Low 34.0-46.0 [facility] ([place] Comment on above: Performed By: #### M ORPH, CBC, DIFF #### [address] [address] Hgb 9.6 G/dL Low 12.0-16.0 [facility] ([place] Comment on above: Performed By: #### M ORPH, CBC, DIFF #### [address] [address] MCH (RBC) [Entitic mass] 30.7 pg Normal 27.0-33.0 [facility] ([place] Comment on above: Performed By: #### M ORPH, CBC, DIFF #### [place] [address] MCHC 32.7 G/dL Normal 32.0-36.0 [facility] ([place] Comment on above: Performed By: #### M ORPH, CBC, DIFF #### [address] [address] MCV (RBC) [Entitic vol] 94.0 fL Normal 80.0-99.0 [facility] ([place] Comment on above: Performed By: #### M ORPH, CBC, DIFF #### [address] [address] Platelet 209 10 3/mcL Normal 150-450 [facility] ([place] Comment on above: Performed By: #### M ORPH, CBC, DIFF #### [address] [address] Platelet mean volume (Bld) [Entitic vol] 7.0 fL Normal 6.6-10.5 [facility] ([place] Comment on above: Performed By: #### M ORPH, CBC, DIFF #### [address] [address] RBC 3.13 10 6/mcL Low 4.10-5.30 [facility] ([place] Comment on above: Performed By: #### M ORPH, CBC, DIFF #### [facility] [address] [place] [address] WBC 4.2 10 3/mcL Low 4.5-10.8 [facility] ([place] Comment on above: Performed By: #### M ORPH, CBC, DIFF #### [facility] [address] [place] [id number] LABORATORYOrdered By: SYSTEM SYSTEM on 02-14-2024 Basophils (Bld) [#/Vol] 0.1 103/mcL Normal 0.0 - 0.3 10^3/mcL Workflow SS Basophils/100 WBC (Bld) 2.1 % Normal 0.0 - 2.5 % AH Workflow SS Calcium [Mass/Vol] 8.4 mg/dL Low 8.7 - 10. 4 mg/dL ADM SS Chloride [Moles/Vol] 108 mmol/L Normal 98 - 11 0 mEq/L ADM SS CO2 [Moles/Vol] 30 mmol/L Normal 22 - 32 mEq/L ADM SS Creatinine [Mass/Vol] 0.51 mg/dL Normal 0.50 - 1.20 mg/dL ADM SS Electrolyte Balance 4.0 mEq/L Normal 4.0 - 15 .0 mEq/L ADM SS Eosinophils (Bld) [#/Vol] 0.2 103/mcL Normal 0.0 - 0.7 10^3/mcL AH Workflow SS Eosinophils/100 WBC (Bld) 5.2 % Normal 0.0 - 6.0 % AH Workflow SS Erythrocyte distribution width (RBC) [Ratio] 17.6 % High 11.5 - 15.5 % AH Workflow SS GFR/1.73 sq M.predicted among blacks MDRD (S/P/Bld) [Vol rate/Area] ml/min/1.73sqm Invalid Interpretation Code Chemistry S Comment on above: Interpretive Data: GFR Population mean for , Non- Americans Ages 20-29 = 116 mL/min/1.73 sq.m. Ages 30-39 = 107 mL/min/1.73 sq.m. Ages 40-49 = 99 mL/min/1.73 sq.m. Ages 50-59 = 93 mL/min/1.73 sq.m. Ages 60-69 = 85 mL/min/1.73 sq.m. Ages 70+ = 75 mL/min/1.73 sq.m. Chronic Kidney Disease: Less than 60 mL/min/1.73 square meters End Stage Renal Disease: Less than 15 mL/min/1.73 square meters GFR/1.73 sq M.predicted among non-blacks MDRD (S/P/Bld) [Vol rate/Area] ml/min/1.73sqm Invalid Interpretation Code Chemistry S Comment on above: Interpretive Data: GFR Population mean for , Non- Americans Ages 20-29 = 116 mL/min/1.73 sq.m. Ages 30-39 = 107 mL/min/1.73 sq.m. Ages 40-49 = 99 mL/min/1.73 sq.m. Ages 50-59 = 93 mL/min/1.73 sq.m. Ages 60-69 = 85 mL/min/1.73 sq.m. Ages 70+ = 75 mL/min/1.73 sq.m. Chronic Kidney Disease: Less than 60 mL/min/1.73 square meters End Stage Renal Disease: Less than 15 mL/min/1.73 square meters Glucose [Mass/Vol] 100 mg/dL Normal 82 - 115 mg/dL ADM SS Hematocrit (Bld) [Volume fraction] 29.4 % Low 34.0 - 46.0 % AH Workflow SS Hemoglobin (Bld) [Mass/Vol] 9.6 G/dL Low 12.0 - 16.0 G/dL AH Workflow SS Lymphocytes (Bld) [#/Vol] 1.2 103/mcL Normal 0.9 - 4.3 10^3/mcL AH Workflow SS Lymphocytes/100 WBC (Bld) 28.4 % Normal 20.0 - 40.0 % AH Workflow SS Magnesium [Mass/Vol] 1.9 mg/dL Normal 1.6 - 2 .4 mg/dL ADM SS MCH (RBC) [Entitic mass] 30.7 pg Normal 27.0 - 33.0 pg AH Workflow SS MCHC 32.7 G/dL Normal 32.0 - 36.0 G/dL AH Workflow SS MCV (RBC) [Entitic vol] 94.0 fL Normal 80.0 - 99.0 fL AH Workflow SS Monocytes (Bld) [#/Vol] 0.4 103/mcL Normal 0.1 - 1.4 10^3/mcL AH Workflow SS Monocytes/100 WBC (Bld) 10.7 % Normal 2.0 - 13.0 % AH Workflow SS Neutrophils (Bld) [#/Vol] 2.2 103/mcL Low 2.3 - 8.1 10^3/mcL AH Workflow SS Neutrophils/100 WBC (Bld) 53.6 % Normal 50.0 - 75.0 % AH Workflow SS Platelet mean volume (Bld) [Entitic vol] 7.0 fL Normal 6.6 - 10.5 fL AH Workflow SS Platelets (Bld) [#/Vol] 209 103/mcL Normal 150 - 450 10^3/mcL AH Workflow SS Potassium [Moles/Vol] 3.7 mmol/L Normal 3.5 - 5.0 mEq/L AH ADM SS RBC (Bld) [#/Vol] 3.13 106/mcL Low 4.10 - 5.30 10^6/mcL AH Workflow SS Sodium [Moles/Vol] 142 mmol/L Normal 136 - 145 mEq/L ADM SS Urea nitrogen [Mass/Vol] 9.0 mg/dL Normal 8.0 - 22.0 mg/dL ADM SS Urea nitrogen/Creatinine [Mass ratio] 17.6 ratio Normal 10.0 - 22.0 ratio AH ADM SS WBC (Bld) [#/Vol] 4.2 103/mcL Low 4.5 - 10.8 10^3/mcL AH Workflow SS MGon 02-14-2024 Magnesium [Mass/Vol] 1.9 mg/dL Normal 1.6-2.4 [facility] ([place]) Comment on above: Performed By: #### M ORPH, CBC, DIFF #### [address] [address] .Auto Diffon 02-12-2024 Basophil, Absolute 0.1 10 3/mcL Normal 0.0-0.3 [facility] ([place] Comment on above: Performed By: #### M ORPH, CBC, DIFF #### [address] [address] Basophils/100 WBC (Bld) 1.9 % Normal 0.0-2.5 [facility] ([place] Comment on above: Performed By: #### M ORPH, CBC, DIFF #### [address] [address] Eosinophil, Absolute 0.1 10 3/mcL Normal 0.0-0.7 [facility] ([place]) Comment on above: Performed By: #### M ORPH, CBC, DIFF #### [address] [address] Eosinophils/100 WBC (Bld) 3.5 % Normal 0.0-6.0 [facility] ([place] Comment on above: Performed By: #### M ORPH, CBC, DIFF #### [address] [address] Lymphocyte, Absolute 1.1 10 3/mcL Normal 0.9-4.3 [facility] ([place] Comment on above: Performed By: #### M ORPH, CBC, DIFF #### [address] [address] Lymphocytes/100 WBC (Bld) 26.8 % Normal 20.0-40.0 [facility] ([place] Comment on above: Performed By: #### M ORPH, CBC, DIFF #### [address] [address] Monocyte, Absolute 0.4 10 3/mcL Normal 0.1-1.4 [facility] ([place] Comment on above: Performed By: #### M ORPH, CBC, DIFF #### [address] [address] Monocytes/100 WBC (Bld) 10.7 % Normal 2.0-13.0 [facility] ([place] Comment on above: Performed By: #### M ORPH, CBC, DIFF #### [address] [address] Neutrophils/100 WBC (Bld) 57.1 % Normal 50.0-75.0 [facility] ([place] Comment on above: Performed By: #### M ORPH, CBC, DIFF #### [address] [address] .NEUABSon 02-12-2024 Neutrophil, Absolute 2.3 10 3/mcL Normal 2.3-8.1 [facility] ([place]) Comment on above: Performed By: #### M ORPH, CBC, DIFF #### [address] [address] CBCon 02-12-2024 Erythrocyte distribution width (RBC) [Ratio] 17.3 % High 11.5-15.5 [facility] ([place] Comment on above: Performed By: #### M ORPH, CBC, DIFF #### [place] [id number] Hematocrit (Bld) [Volume fraction] 29.6 % Low 34.0-46.0 [facility] ([place] Comment on above: Performed By: #### M ORPH, CBC, DIFF #### [place] [id number] Hgb 9.6 G/dL Low 12.0-16.0 [facility] ([place] Comment on above: Performed By: #### M ORPH, CBC, DIFF #### [place] [id number] MCH (RBC) [Entitic mass] 30.7 pg Normal 27.0-33.0 [facility] ([place] Comment on above: Performed By: #### M ORPH, CBC, DIFF #### [place] [address] MCHC 32.6 G/dL Normal 32.0-36.0 [facility] ([place] Comment on above: Performed By: #### M ORPH, CBC, DIFF #### [place] [id number] MCV (RBC) [Entitic vol] 94.0 fL Normal 80.0-99.0 [facility] ([place] Comment on above: Performed By: #### M ORPH, CBC, DIFF #### [place] [id number] Platelet 215 10 3/mcL Normal 150-450 [facility] ([place] Comment on above: Performed By: #### M ORPH, CBC, DIFF #### [place] [address] Platelet mean volume (Bld) [Entitic vol] 7.5 fL Normal 6.6-10.5 [facility] ([place] Comment on above: Performed By: #### M ORPH, CBC, DIFF #### [address] [address] RBC 3.15 10 6/mcL Low 4.10-5.30 [facility] ([place] Comment on above: Performed By: #### M ORPH, CBC, DIFF #### [address] [address] WBC 4.1 10 3/mcL Low 4.5-10.8 [facility] ([place] Comment on above: Performed By: #### M ORPH, CBC, DIFF #### [address] [address] LABORATORYOrdered By: SYSTEM SYSTEM on 02-12-2024 Basophils (Bld) [#/Vol] 0.1 103/mcL Normal 0.0 - 0.3 10^3/mcL Workflow SS Basophils/100 WBC (Bld) 1.9 % Normal 0.0 - 2.5 % Workflow SS Eosinophils (Bld) [#/Vol] 0.1 103/mcL Normal 0.0 - 0.7 10^3/mcL Workflow SS Eosinophils/100 WBC (Bld) 3.5 % Normal 0.0 - 6.0 % Workflow SS Erythrocyte distribution width (RBC) [Ratio] 17.3 % High 11.5 - 15.5 % AH Workflow SS Hematocrit (Bld) [Volume fraction] 29.6 % Low 34.0 - 46.0 % AH Workflow SS Hemoglobin (Bld) [Mass/Vol] 9.6 G/dL Low 12.0 - 16.0 G/dL AH Workflow SS Lymphocytes (Bld) [#/Vol] 1.1 103/mcL Normal 0.9 - 4.3 10^3/mcL Workflow SS Lymphocytes/100 WBC (Bld) 26.8 % Normal 20.0 - 40.0 % AH Workflow SS MCH (RBC) [Entitic mass] 30.7 pg Normal 27.0 - 33.0 pg AH Workflow SS MCHC 32.6 G/dL Normal 32.0 - 36.0 G/dL AH Workflow SS MCV (RBC) [Entitic vol] 94.0 fL Normal 80.0 - 99.0 fL AH Workflow SS Monocytes (Bld) [#/Vol] 0.4 103/mcL Normal 0.1 - 1.4 10^3/mcL AH Workflow SS Monocytes/100 WBC (Bld) 10.7 % Normal 2.0 - 13.0 % AH Workflow SS Neutrophils (Bld) [#/Vol] 2.3 103/mcL Normal 2.3 - 8.1 10^3/mcL AH Workflow SS Neutrophils/100 WBC (Bld) 57.1 % Normal 50.0 - 75.0 % AH Workflow SS Platelet mean volume (Bld) [Entitic vol] 7.5 fL Normal 6.6 - 10.5 fL AH Workflow SS Platelets (Bld) [#/Vol] 215 103/mcL Normal 150 - 450 10^3/mcL AH Workflow SS RBC (Bld) [#/Vol] 3.15 106/mcL Low 4.10 - 5.30 10^6/mcL AH Workflow SS WBC (Bld) [#/Vol] 4.1 103/mcL Low 4.5 - 10.8 10^3/mcL AH Workflow SS XR CHEST 1 VIEWon 02-11-2024 XR CHEST 1 VIEW ORIGINAL EXAMINATION: ONE XRAY VIEW OF THE CHEST02/11/2024 5:19 pm CHEST ONE VIEW AP/PA EXAM DESCRIPTION: COMPARISON: Chest, January 31, 2024 HISTORY: ORDERING SYSTEM PROVIDED HISTORY: Reason for Exam: picc placement, confirm picc tip location FINDINGS: Single AP radiograph of the chest was obtained. Lung volumes are decreased with crowding of the bronchovascular cristy. Chronic interstitial changes not significantly changed from prior. Large hiatal hernia. The cardiomediastinal silhouette is unremarkable. Left PICC tip is in the mid SVC. The bones and soft tissues are unremarkable. IMPRESSION: Successful placement left PICC. Chronic interstitial changes and large hiatal hernia stable from prior Interpreted by: Wilberto Loyd MD Preliminary Report By: Wilberto Loyd MD Electronically signed By Wilberto Loyd MD Dictated Date: 02/11/2024 5:25:52 PM Prelim Date: 02/11/2024 5:26:58 PM Sign Date: 02/11/2024 5:26:58 PM Ordering Provider: DRE Woody [facility] ([place] on 02-10-2024 Hematocrit (Bld) [Volume fraction] 29.5 % Low 34.0-46.0 [facility] ([place] Comment on above: Performed By: #### U A #### [place] [address] [place], [place] [address] Hgb 9.9 G/dL Low 12.0-16.0 [facility] ([place] Comment on above: Performed By: #### U A #### [address] [place] [address] [place], [place] [address] LABORATORYOrdered By: SYSTEM SYSTEM on 02-10-2024 Hematocrit (Bld) [Volume fraction] 29.5 % Low 34.0 - 46.0 % Workflow SS Hemoglobin (Bld) [Mass/Vol] 9.9 G/dL Low 12.0 - 16.0 G/dL Workflow SS .Manual Diffon 02-09-2024 Basophil %, Manual 2.0 % Normal 0.0-2.5 [facility] ([place]) Comment on above: Performed By: #### M ORPH, CBC, DIFF #### [address] [address] Basophil, Abs Manual 0.1 10 3/mcL Normal 0.0-0.3 [facility] ([place] Comment on above: Performed By: #### M ORPH, CBC, DIFF #### [address] [address] Eosinophil %, Manual 5.0 % Normal 0.0-6.0 [facility] ([place] Comment on above: Performed By: #### M ORPH, CBC, DIFF #### [address] [address] Eosinophil, Abs Manual 0.4 10 3/mcL Normal 0.0-0.7 [facility] ([place] Comment on above: Performed By: #### M ORPH, CBC, DIFF #### [address] [address] Lymphocyte %, Manual 32.0 % Normal 20.0-40.0 [facility] ([place] Comment on above: Performed By: #### M ORPH, CBC, DIFF #### [address] [address] Lymphocyte, Abs Manual 2.2 10 3/mcL Normal 0.9-4.3 [facility] ([place] Comment on above: Performed By: #### M ORPH, CBC, DIFF #### [address] [address] Monocyte %, Manual 7.0 % Normal 2.0-13.0 [facility] ([place] Comment on above: Performed By: #### M ORPH, CBC, DIFF #### [address] [address] Monocyte, Abs Manual 0.5 10 3/mcL Normal 0.1-1.4 [facility] ([place] Comment on above: Performed By: #### M ORPH, CBC, DIFF #### [address] [address] Neutrophil %, Manual 54.0 % Normal 50.0-75.0 [facility] ([place] Comment on above: Performed By: #### M ORPH, CBC, DIFF #### [address] [address] Neutrophil, Abs Manual 3.7 10 3/mcL Normal 2.3-8.1 [facility] ([place]) Comment on above: Performed By: #### M ORPH, CBC, DIFF #### [address] [address] Nucleated RBC 0.0 /100 WBC Normal [facility] ([place] Comment on above: Performed By: #### M ORPH, CBC, DIFF #### [address] [address] .Morphon 02-09-2024 Anisocytosis Ql (Bld) 1+ Normal [facility] ([place]) Comment on above: Performed By: #### M ORPH, CBC, DIFF #### [address] [address] Platelet Estimate Normal Normal [facility] ([place]) Comment on above: Performed By: #### M ORPH, CBC, DIFF #### [address] [address] Polychrom 1+ Normal [facility] ([place]) Comment on above: Performed By: #### M ORPH, CBC, DIFF #### [address] [address] CBCon 02-09-2024 Platelet 220 10 3/mcL Normal 150-450 [facility] ([place] Comment on above: Performed By: #### M ORPH, CBC, DIFF #### [place] [id number] Platelet mean volume (Bld) [Entitic vol] 7.5 fL Normal 6.6-10.5 [facility] ([place] Comment on above: Performed By: #### M ORPH, CBC, DIFF #### [place] [id number] WBC 7.0 10 3/mcL Normal 4.5-10.8 [facility] ([place] Comment on above: Performed By: #### M ORPH, CBC, DIFF #### [place] [address] Erythrocyte distribution width (RBC) [Ratio] 16.9 % High 11.5-15.5 [facility] ([place] Comment on above: Performed By: #### M ORPH, CBC, DIFF #### [place] [address] Hematocrit (Bld) [Volume fraction] 29.8 % Low 34.0-46.0 [facility] ([place] Comment on above: Performed By: #### M ORPH, CBC, DIFF #### [place] [address] Hgb 9.8 G/dL Low 12.0-16.0 [facility] ([place] Comment on above: Performed By: #### M ORPH, CBC, DIFF #### [place] [id number] MCH (RBC) [Entitic mass] 30.8 pg Normal 27.0-33.0 [facility] ([place] Comment on above: Performed By: #### M ORPH, CBC, DIFF #### [place] [id number] MCHC 33.0 G/dL Normal 32.0-36.0 [facility] ([place] Comment on above: Performed By: #### M ORPH, CBC, DIFF #### [address] [address] MCV (RBC) [Entitic vol] 93.3 fL Normal 80.0-99.0 [facility] ([place] Comment on above: Performed By: #### M ORPH, CBC, DIFF #### [address] [address] RBC 3.19 10 6/mcL Low 4.10-5.30 [facility] ([place] Comment on above: Performed By: #### M ORPH, CBC, DIFF #### [address] [address] LABORATORYOrdered By: SYSTEM SYSTEM on 02-09-2024 Anisocytosis Ql (Bld) 1+ *NA* (02/09/24 4:19 AM) Invalid Interpretation Code AH Workflow SS Basophils (Bld) [#/Vol] 0.1 103/mcL Normal 0.0 - 0.3 10^3/mcL AH Workflow SS Basophils/100 WBC (Bld) 2.0 % Normal 0.0 - 2.5 % AH Workflow SS Eosinophils (Bld) [#/Vol] 0.4 103/mcL Normal 0.0 - 0.7 10^3/mcL AH Workflow SS Eosinophils/100 WBC (Bld) 5.0 % Normal 0.0 - 6.0 % AH Workflow SS Erythrocyte distribution width (RBC) [Ratio] 16.9 % High 11.5 - 15.5 % AH Workflow SS Lymphocytes (Bld) [#/Vol] 2.2 103/mcL Normal 0.9 - 4.3 10^3/mcL AH Workflow SS Lymphocytes/100 WBC (Bld) 32.0 % Normal 20.0 - 40.0 % AH Workflow SS MCH (RBC) [Entitic mass] 30.8 pg Normal 27.0 - 33.0 pg AH Workflow SS MCHC 33.0 G/dL Normal 32.0 - 36.0 G/dL AH Workflow SS MCV (RBC) [Entitic vol] 93.3 fL Normal 80.0 - 99.0 fL AH Workflow SS Monocytes (Bld) [#/Vol] 0.5 103/mcL Normal 0.1 - 1.4 10^3/mcL AH Workflow SS Monocytes/100 WBC (Bld) 7.0 % Normal 2.0 - 13.0 % AH Workflow SS Neutrophils (Bld) [#/Vol] 3.7 103/mcL Normal 2.3 - 8.1 10^3/mcL AH Workflow SS Neutrophils/100 WBC (Bld) 54.0 % Normal 50.0 - 75.0 % AH Workflow SS Nucleated RBC 0.0 /100 WBC Invalid Interpretation Code AH Workflow SS Platelet mean volume (Bld) [Entitic vol] 7.5 fL Normal 6.6 - 10.5 fL AH Workflow SS Platelets (Bld) [#/Vol] 220 103/mcL Normal 150 - 450 10^3/mcL AH Workflow SS Platelets LM Ql (Bld) Normal *NA* (02/09/24 4:19 AM) Invalid Interpretation Code AH Workflow SS Polychromasia LM Ql (Bld) 1+ *NA* (02/09/24 4:19 AM) Invalid Interpretation Code AH Workflow SS RBC (Bld) [#/Vol] 3.19 106/mcL Low 4.10 - 5.30 10^6/mcL AH Workflow SS WBC (Bld) [#/Vol] 7.0 103/mcL Normal 4.5 - 10.8 10^3/mcL Workflow SS .Auto Diffon 02-08-2024 Basophil, Absolute 0.1 10 3/mcL Normal 0.0-0.3 [facility] ([place] Comment on above: Performed By: #### M G, CBC, BMP, ADIFF, ANEU, GFR #### [address] [address] Basophils/100 WBC (Bld) 2.3 % Normal 0.0-2.5 [facility] ([place] Comment on above: Performed By: #### M G, CBC, BMP, ADIFF, ANEU, GFR #### [address] [address] Eosinophil, Absolute 0.1 10 3/mcL Normal 0.0-0.7 [facility] ([place] Comment on above: Performed By: #### M G, CBC, BMP, ADIFF, ANEU, GFR #### [address] [address] Eosinophils/100 WBC (Bld) 2.9 % Normal 0.0-6.0 [facility] ([place] Comment on above: Performed By: #### M G, CBC, BMP, ADIFF, ANEU, GFR #### [address] [address] Lymphocyte, Absolute 0.8 10 3/mcL Low 0.9-4.3 [facility] ([place] Comment on above: Performed By: #### M G, CBC, BMP, ADIFF, ANEU, GFR #### [address] [address] Lymphocytes/100 WBC (Bld) 20.7 % Normal 20.0-40.0 [facility] ([place] Comment on above: Performed By: #### M G, CBC, BMP, ADIFF, ANEU, GFR #### [address] [address] Monocyte, Absolute 0.4 10 3/mcL Normal 0.1-1.4 [facility] ([place] Comment on above: Performed By: #### M G, CBC, BMP, ADIFF, ANEU, GFR #### [address] [address] Monocytes/100 WBC (Bld) 10.1 % Normal 2.0-13.0 [facility] ([place] Comment on above: Performed By: #### M G, CBC, BMP, ADIFF, ANEU, GFR #### [address] [address] Neutrophils/100 WBC (Bld) 64.0 % Normal 50.0-75.0 [facility] ([place] Comment on above: Performed By: #### M G, CBC, BMP, ADIFF, ANEU, GFR #### [address] [address] .GFRon 02-08-2024 GFR >60 Normal [facility] ([place] Comment on above: Result Comment: GFR Population mean for , Non- Americans Ages 20-29 = 116 mL/min/1.73 sq.m. Ages 30-39 = 107 mL/min/1.73 sq.m. Ages 40-49 = 99 mL/min/1.73 sq.m. Ages 50-59 = 93 mL/min/1.73 sq.m. Ages 60-69 = 85 mL/min/1.73 sq.m. Ages 70+ = 75 mL/min/1.73 sq.m. Chronic Kidney Disease: Less than 60 mL/min/1.73 square meters End Stage Renal Disease: Less than 15 mL/min/1.73 square meters Performed By: #### M G, CBC, BMP, ADIFF, ANEU, GFR #### [address] [address] GFR Non- >60 Normal [facility] ([place] Comment on above: Result Comment: GFR Population mean for , Non- Americans Ages 20-29 = 116 mL/min/1.73 sq.m. Ages 30-39 = 107 mL/min/1.73 sq.m. Ages 40-49 = 99 mL/min/1.73 sq.m. Ages 50-59 = 93 mL/min/1.73 sq.m. Ages 60-69 = 85 mL/min/1.73 sq.m. Ages 70+ = 75 mL/min/1.73 sq.m. Chronic Kidney Disease: Less than 60 mL/min/1.73 square meters End Stage Renal Disease: Less than 15 mL/min/1.73 square meters Performed By: #### M G, CBC, BMP, ADIFF, ANEU, GFR #### [address] [address] .NEUABSon 02-08-2024 Neutrophil, Absolute 2.6 10 3/mcL Normal 2.3-8.1 [facility] ([place] Comment on above: Performed By: #### M G, CBC, BMP, ADIFF, ANEU, GFR #### [address] [address] BMPon 02-08-2024 BUN/Creatinine Ratio 14.5 ratio Normal 10.0-22.0 [facility] ([place] Comment on above: Performed By: #### M G, CBC, BMP, ADIFF, ANEU, GFR #### [address] [address] Calcium [Mass/Vol] 8.5 mg/dL Low 8.7-10.4 [facility] ([place] Comment on above: Performed By: #### M G, CBC, BMP, ADIFF, ANEU, GFR #### [address] [address] Chloride [Moles/Vol] 107 mmol/L Normal 98-110 [facility] ([place] Comment on above: Performed By: #### M G, CBC, BMP, ADIFF, ANEU, GFR #### [address] [address] CO2 [Moles/Vol] 26 mmol/L Normal 22-32 [facility] ([place] Comment on above: Performed By: #### M G, CBC, BMP, ADIFF, ANEU, GFR #### [address] [address] Creatinine [Mass/Vol] 0.62 mg/dL Normal 0.50-1.20 [facility] ([place] Comment on above: Performed By: #### M G, CBC, BMP, ADIFF, ANEU, GFR #### [address] [address] Electrolyte Balance 9.0 mEq/L Normal 4.0-15.0 [facility] ([place] Comment on above: Performed By: #### M G, CBC, BMP, ADIFF, ANEU, GFR #### [address] [address] Glucose [Mass/Vol] 108 mg/dL Normal 82-115 [facility] ([place] Comment on above: Performed By: #### M G, CBC, BMP, ADIFF, ANEU, GFR #### [address] [address] Potassium [Moles/Vol] 4.0 mmol/L Normal 3.5-5.0 [facility] ([place] Comment on above: Performed By: #### M G, CBC, BMP, ADIFF, ANEU, GFR #### [address] [address] Sodium [Moles/Vol] 142 mmol/L Normal 136-145 [facility] ([place] Comment on above: Performed By: #### M G, CBC, BMP, ADIFF, ANEU, GFR #### [address] [address] Urea nitrogen [Mass/Vol] 9.0 mg/dL Normal 8.0-22.0 [facility] ([place] Comment on above: Performed By: #### M G, CBC, BMP, ADIFF, ANEU, GFR #### [place] [id number] CBCon 02-08-2024 Erythrocyte distribution width (RBC) [Ratio] 16.4 % High 11.5-15.5 [facility] ([place] Comment on above: Performed By: #### M G, CBC, BMP, ADIFF, ANEU, GFR #### [place] [id number] Hematocrit (Bld) [Volume fraction] 32.7 % Low 34.0-46.0 [facility] ([place] Comment on above: Performed By: #### M G, CBC, BMP, ADIFF, ANEU, GFR #### [address] [address] Hgb 10.8 G/dL Low 12.0-16.0 [facility] ([place] Comment on above: Performed By: #### M G, CBC, BMP, ADIFF, ANEU, GFR #### [address] [address] MCH (RBC) [Entitic mass] 30.9 pg Normal 27.0-33.0 [facility] ([place] Comment on above: Performed By: #### M G, CBC, BMP, ADIFF, ANEU, GFR #### [place] [id number] MCHC 33.0 G/dL Normal 32.0-36.0 [facility] ([place] Comment on above: Performed By: #### M G, CBC, BMP, ADIFF, ANEU, GFR #### [address] [address] MCV (RBC) [Entitic vol] 93.5 fL Normal 80.0-99.0 [facility] ([place] Comment on above: Performed By: #### M G, CBC, BMP, ADIFF, ANEU, GFR #### [address] [address] Platelet 224 10 3/mcL Normal 150-450 [facility] ([place] Comment on above: Performed By: #### M G, CBC, BMP, ADIFF, ANEU, GFR #### [address] [address] Platelet mean volume (Bld) [Entitic vol] 7.3 fL Normal 6.6-10.5 [facility] ([place] Comment on above: Performed By: #### M G, CBC, BMP, ADIFF, ANEU, GFR #### [address] [address] RBC 3.50 10 6/mcL Low 4.10-5.30 [facility] ([place] Comment on above: Performed By: #### M G, CBC, BMP, ADIFF, ANEU, GFR #### [address] [address] WBC 4.1 10 3/mcL Low 4.5-10.8 [facility] ([place] Comment on above: Performed By: #### M G, CBC, BMP, ADIFF, ANEU, GFR #### [address] [address] LABORATORYOrdered By: SYSTEM SYSTEM on 02-08-2024 Basophils (Bld) [#/Vol] 0.1 103/mcL Normal 0.0 - 0.3 10^3/mcL AH Workflow SS Basophils/100 WBC (Bld) 2.3 % Normal 0.0 - 2.5 % AH Workflow SS Calcium [Mass/Vol] 8.5 mg/dL Low 8.7 - 10. 4 mg/dL AH ADM SS Chloride [Moles/Vol] 107 mmol/L Normal 98 - 11 0 mEq/L ADM SS CO2 [Moles/Vol] 26 mmol/L Normal 22 - 32 mEq/L ADM SS Creatinine [Mass/Vol] 0.62 mg/dL Normal 0.50 - 1.20 mg/dL ADM SS Electrolyte Balance 9.0 mEq/L Normal 4.0 - 15 .0 mEq/L ADM SS Eosinophils (Bld) [#/Vol] 0.1 103/mcL Normal 0.0 - 0.7 10^3/mcL Workflow SS Eosinophils/100 WBC (Bld) 2.9 % Normal 0.0 - 6.0 % Workflow SS GFR/1.73 sq M.predicted among blacks MDRD (S/P/Bld) [Vol rate/Area] ml/min/1.73sqm Invalid Interpretation Code [employer] [facility] S Comment on above: Interpretive Data: GFR Population mean for , Non- Americans Ages 20-29 = 116 mL/min/1.73 sq.m. Ages 30-39 = 107 mL/min/1.73 sq.m. Ages 40-49 = 99 mL/min/1.73 sq.m. Ages 50-59 = 93 mL/min/1.73 sq.m. Ages 60-69 = 85 mL/min/1.73 sq.m. Ages 70+ = 75 mL/min/1.73 sq.m. Chronic Kidney Disease: Less than 60 mL/min/1.73 square meters End Stage Renal Disease: Less than 15 mL/min/1.73 square meters GFR/1.73 sq M.predicted among non-blacks MDRD (S/P/Bld) [Vol rate/Area] ml/min/1.73sqm Invalid Interpretation Code [employer] [facility] S Comment on above: Interpretive Data: GFR Population mean for , Non- Americans Ages 20-29 = 116 mL/min/1.73 sq.m. Ages 30-39 = 107 mL/min/1.73 sq.m. Ages 40-49 = 99 mL/min/1.73 sq.m. Ages 50-59 = 93 mL/min/1.73 sq.m. Ages 60-69 = 85 mL/min/1.73 sq.m. Ages 70+ = 75 mL/min/1.73 sq.m. Chronic Kidney Disease: Less than 60 mL/min/1.73 square meters End Stage Renal Disease: Less than 15 mL/min/1.73 square meters Glucose [Mass/Vol] 108 mg/dL Normal 82 - 115 mg/dL ADM SS Lymphocytes (Bld) [#/Vol] 0.8 103/mcL Low 0.9 - 4.3 10^3/mcL AH Workflow SS Lymphocytes/100 WBC (Bld) 20.7 % Normal 20.0 - 40.0 % AH Workflow SS Magnesium [Mass/Vol] 2.1 mg/dL Normal 1.6 - 2 .4 mg/dL ADM SS Monocytes (Bld) [#/Vol] 0.4 103/mcL Normal 0.1 - 1.4 10^3/mcL AH Workflow SS Monocytes/100 WBC (Bld) 10.1 % Normal 2.0 - 13.0 % AH Workflow SS Neutrophils (Bld) [#/Vol] 2.6 103/mcL Normal 2.3 - 8.1 10^3/mcL Workflow SS Neutrophils/100 WBC (Bld) 64.0 % Normal 50.0 - 75.0 % Workflow SS Potassium [Moles/Vol] 4.0 mmol/L Normal 3.5 - 5.0 mEq/L ADM SS Sodium [Moles/Vol] 142 mmol/L Normal 136 - 145 mEq/L ADM SS Urea nitrogen [Mass/Vol] 9.0 mg/dL Normal 8.0 - 22.0 mg/dL ADM SS Urea nitrogen/Creatinine [Mass ratio] 14.5 ratio Normal 10.0 - 22.0 ratio ADM SS MGon 02-08-2024 Magnesium [Mass/Vol] 2.1 mg/dL Normal 1.6-2.4 [facility] ([place]) Comment on above: Performed By: #### M G, CBC, BMP, ADIFF, ANEU, GFR #### Rosa Maria [address] [address] .Auto Diffon 02-07-2024 Basophil, Absolute 0.1 10 3/mcL Normal 0.0-0.3 [facility] ([place]) Comment on above: Performed By: #### A MANJULA, CBC, ADIFF, GFR, BMP #### Rosa Maria [address] [address] Basophils/100 WBC (Bld) 1.4 % Normal 0.0-2.5 [facility] ([place] Comment on above: Performed By: #### A MANJULA, CBC, ADIFF, GFR, BMP #### [address] [address] Eosinophil, Absolute 0.1 10 3/mcL Normal 0.0-0.7 [facility] ([place] Comment on above: Performed By: #### A MANJULA, CBC, ADIFF, GFR, BMP #### [address] [address] Eosinophils/100 WBC (Bld) 2.6 % Normal 0.0-6.0 [facility] ([place] Comment on above: Performed By: #### A MANJULA, CBC, ADIFF, GFR, BMP #### [address] [address] Lymphocyte, Absolute 1.1 10 3/mcL Normal 0.9-4.3 [facility] ([place] Comment on above: Performed By: #### A MANJULA, CBC, ADIFF, GFR, BMP #### [address] [address] Lymphocytes/100 WBC (Bld) 23.2 % Normal 20.0-40.0 [facility] ([place] Comment on above: Performed By: #### A MANJULA, CBC, ADIFF, GFR, BMP #### [address] [address] Monocyte, Absolute 0.5 10 3/mcL Normal 0.1-1.4 [facility] ([place] Comment on above: Performed By: #### A MANJULA, CBC, ADIFF, GFR, BMP #### [address] [address] Monocytes/100 WBC (Bld) 10.1 % Normal 2.0-13.0 [facility] ([place] Comment on above: Performed By: #### A MANJULA, CBC, ADIFF, GFR, BMP #### [address] [address] Neutrophils/100 WBC (Bld) 62.7 % Normal 50.0-75.0 [facility] ([place] Comment on above: Performed By: #### A MANJULA, CBC, ADIFF, GFR, BMP #### [address] [address] .GFRon 02-07-2024 GFR >60 Normal [facility] ([place] Comment on above: Result Comment: GFR Population mean for , Non- Americans Ages 20-29 = 116 mL/min/1.73 sq.m. Ages 30-39 = 107 mL/min/1.73 sq.m. Ages 40-49 = 99 mL/min/1.73 sq.m. Ages 50-59 = 93 mL/min/1.73 sq.m. Ages 60-69 = 85 mL/min/1.73 sq.m. Ages 70+ = 75 mL/min/1.73 sq.m. Chronic Kidney Disease: Less than 60 mL/min/1.73 square meters End Stage Renal Disease: Less than 15 mL/min/1.73 square meters Performed By: #### A MANJULA, CBC, ADIFF, GFR, BMP #### [address] [address] GFR Non- >60 Normal [facility] ([place] Comment on above: Result Comment: GFR Population mean for , Non- Americans Ages 20-29 = 116 mL/min/1.73 sq.m. Ages 30-39 = 107 mL/min/1.73 sq.m. Ages 40-49 = 99 mL/min/1.73 sq.m. Ages 50-59 = 93 mL/min/1.73 sq.m. Ages 60-69 = 85 mL/min/1.73 sq.m. Ages 70+ = 75 mL/min/1.73 sq.m. Chronic Kidney Disease: Less than 60 mL/min/1.73 square meters End Stage Renal Disease: Less than 15 mL/min/1.73 square meters Performed By: #### A MANJULA, CBC, ADIFF, GFR, BMP #### [address] [address] .NEUABSon 02-07-2024 Neutrophil, Absolute 2.8 10 3/mcL Normal 2.3-8.1 [facility] ([place] Comment on above: Performed By: #### A MANJULA, CBC, ADIFF, GFR, BMP #### [address] [address] BMPon 02-07-2024 BUN/Creatinine Ratio 14.3 ratio Normal 10.0-22.0 [facility] ([place] Comment on above: Performed By: #### A MANJULA, CBC, ADIFF, GFR, BMP #### [address] [address] Calcium [Mass/Vol] 8.4 mg/dL Low 8.7-10.4 [facility] ([place] Comment on above: Performed By: #### A MANJULA, CBC, ADIFF, GFR, BMP #### [address] [address] Chloride [Moles/Vol] 107 mmol/L Normal 98-110 [facility] ([place] Comment on above: Performed By: #### A MANJULA, CBC, ADIFF, GFR, BMP #### [address] [address] CO2 [Moles/Vol] 27 mmol/L Normal 22-32 [facility] ([place] Comment on above: Performed By: #### A MANJULA, CBC, ADIFF, GFR, BMP #### [address] [address] Creatinine [Mass/Vol] 0.70 mg/dL Normal 0.50-1.20 [facility] ([place] Comment on above: Performed By: #### A MANJULA, CBC, ADIFF, GFR, BMP #### [address] [address] Electrolyte Balance 7.0 mEq/L Normal 4.0-15.0 [facility] ([place] Comment on above: Performed By: #### A MANJULA, CBC, ADIFF, GFR, BMP #### [address] [address] Glucose [Mass/Vol] 94 mg/dL Normal 82-115 [facility] ([place] Comment on above: Performed By: #### A MANJULA, CBC, ADIFF, GFR, BMP #### [address] [address] Potassium [Moles/Vol] 4.2 mmol/L Normal 3.5-5.0 [facility] ([place] Comment on above: Performed By: #### A MANJULA, CBC, ADIFF, GFR, BMP #### [address] [address] Sodium [Moles/Vol] 141 mmol/L Normal 136-145 [facility] ([place] Comment on above: Performed By: #### A MANJULA, CBC, ADIFF, GFR, BMP #### [address] [address] Urea nitrogen [Mass/Vol] 10.0 mg/dL Normal 8.0-22.0 [facility] ([place] Comment on above: Performed By: #### A MANJULA, CBC, ADIFF, GFR, BMP #### [address] [address] CBCon 02-07-2024 Erythrocyte distribution width (RBC) [Ratio] 16.2 % High 11.5-15.5 [facility] ([place] Comment on above: Performed By: #### A MANJULA, CBC, ADIFF, GFR, BMP #### [address] [address] Hematocrit (Bld) [Volume fraction] 32.8 % Low 34.0-46.0 [facility] ([place] Comment on above: Performed By: #### A MANJULA, CBC, ADIFF, GFR, BMP #### [address] [address] Hgb 10.7 G/dL Low 12.0-16.0 [facility] ([place] Comment on above: Performed By: #### A MANJULA, CBC, ADIFF, GFR, BMP #### [address] [address] MCH (RBC) [Entitic mass] 30.6 pg Normal 27.0-33.0 [facility] ([place] Comment on above: Performed By: #### A MANJULA, CBC, ADIFF, GFR, BMP #### [address] [address] MCHC 32.7 G/dL Normal 32.0-36.0 [facility] ([place] Comment on above: Performed By: #### A MANJULA, CBC, ADIFF, GFR, BMP #### [address] [address] MCV (RBC) [Entitic vol] 93.6 fL Normal 80.0-99.0 [facility] ([place] Comment on above: Performed By: #### A MANJULA, CBC, ADIFF, GFR, BMP #### [address] [address] Platelet 215 10 3/mcL Normal 150-450 [facility] ([place] Comment on above: Performed By: #### A MANJULA, CBC, ADIFF, GFR, BMP #### [address] [address] Platelet mean volume (Bld) [Entitic vol] 7.5 fL Normal 6.6-10.5 [facility] ([place] Comment on above: Performed By: #### A MANJULA, CBC, ADIFF, GFR, BMP #### [address] [address] RBC 3.50 10 6/mcL Low 4.10-5.30 [facility] ([place] Comment on above: Performed By: #### A MANJULA, CBC, ADIFF, GFR, BMP #### [address] [address] WBC 4.5 10 3/mcL Normal 4.5-10.8 [facility] ([place] Comment on above: Performed By: #### A MANJULA, CBC, ADIFF, GFR, BMP #### [address] [address] LABORATORYOrdered By: SYSTEM SYSTEM on 02-07-2024 Calcium [Mass/Vol] 8.4 mg/dL Low 8.7 - 10. 4 mg/dL AH ADM SS Chloride [Moles/Vol] 107 mmol/L Normal 98 - 11 0 mEq/L ADM SS CO2 [Moles/Vol] 27 mmol/L Normal 22 - 32 mEq/L ADM SS Creatinine [Mass/Vol] 0.70 mg/dL Normal 0.50 - 1.20 mg/dL ADM SS Electrolyte Balance 7.0 mEq/L Normal 4.0 - 15 .0 mEq/L ADM SS GFR/1.73 sq M.predicted among blacks MDRD (S/P/Bld) [Vol rate/Area] ml/min/1.73sqm Invalid Interpretation Code [employer] [facility] Comment on above: Interpretive Data: GFR Population mean for , Non- Americans Ages 20-29 = 116 mL/min/1.73 sq.m. Ages 30-39 = 107 mL/min/1.73 sq.m. Ages 40-49 = 99 mL/min/1.73 sq.m. Ages 50-59 = 93 mL/min/1.73 sq.m. Ages 60-69 = 85 mL/min/1.73 sq.m. Ages 70+ = 75 mL/min/1.73 sq.m. Chronic Kidney Disease: Less than 60 mL/min/1.73 square meters End Stage Renal Disease: Less than 15 mL/min/1.73 square meters GFR/1.73 sq M.predicted among non-blacks MDRD (S/P/Bld) [Vol rate/Area] ml/min/1.73sqm Invalid Interpretation Code [employer] S Comment on above: Interpretive Data: GFR Population mean for , Non- Americans Ages 20-29 = 116 mL/min/1.73 sq.m. Ages 30-39 = 107 mL/min/1.73 sq.m. Ages 40-49 = 99 mL/min/1.73 sq.m. Ages 50-59 = 93 mL/min/1.73 sq.m. Ages 60-69 = 85 mL/min/1.73 sq.m. Ages 70+ = 75 mL/min/1.73 sq.m. Chronic Kidney Disease: Less than 60 mL/min/1.73 square meters End Stage Renal Disease: Less than 15 mL/min/1.73 square meters Glucose [Mass/Vol] 94 mg/dL Normal 82 - 115 mg/dL ADM SS Magnesium [Mass/Vol] 1.9 mg/dL Normal 1.6 - 2 .4 mg/dL ADM SS Potassium [Moles/Vol] 4.2 mmol/L Normal 3.5 - 5.0 mEq/L ADM SS Sodium [Moles/Vol] 141 mmol/L Normal 136 - 145 mEq/L ADM SS Urea nitrogen [Mass/Vol] 10.0 mg/dL Normal 8.0 - 22.0 mg/dL ADM SS Urea nitrogen/Creatinine [Mass ratio] 14.3 ratio Normal 10.0 - 22.0 ratio ADM SS MGon 02-07-2024 Magnesium [Mass/Vol] 1.9 mg/dL Normal 1.6-2.4 [facility] ([place] Comment on above: Performed By: #### A MANJULA, CBC, ADIFF, GFR, BMP #### [address] [address] .Auto Diffon 02-06-2024 Basophil, Absolute 0.1 10 3/mcL Normal 0.0-0.3 [facility] ([place] Comment on above: Performed By: #### M ORPH, CBC, DIFF #### [address] [address] Basophils/100 WBC (Bld) 1.5 % Normal 0.0-2.5 [facility] ([place] Comment on above: Performed By: #### M ORPH, CBC, DIFF #### [address] [address] Eosinophil, Absolute 0.1 10 3/mcL Normal 0.0-0.7 [facility] ([place] Comment on above: Performed By: #### M ORPH, CBC, DIFF #### [address] [address] Eosinophils/100 WBC (Bld) 2.6 % Normal 0.0-6.0 [facility] ([place] Comment on above: Performed By: #### M ORPH, CBC, DIFF #### [address] [address] Lymphocyte, Absolute 0.9 10 3/mcL Normal 0.9-4.3 [facility] ([place] Comment on above: Performed By: #### M ORPH, CBC, DIFF #### [address] [address] Lymphocytes/100 WBC (Bld) 22.0 % Normal 20.0-40.0 [facility] ([place] Comment on above: Performed By: #### M ORPH, CBC, DIFF #### [address] [address] Monocyte, Absolute 0.4 10 3/mcL Normal 0.1-1.4 [facility] ([place] Comment on above: Performed By: #### M ORPH, CBC, DIFF #### [address] [address] Monocytes/100 WBC (Bld) 9.3 % Normal 2.0-13.0 [facility] ([place] Comment on above: Performed By: #### M ORPH, CBC, DIFF #### [address] [address] Neutrophils/100 WBC (Bld) 64.6 % Normal 50.0-75.0 [facility] ([place] Comment on above: Performed By: #### M ORPH, CBC, DIFF #### [address] [address] .GFRon 02-06-2024 GFR >60 Normal [facility] ([place] Comment on above: Result Comment: GFR Population mean for , Non- Americans Ages 20-29 = 116 mL/min/1.73 sq.m. Ages 30-39 = 107 mL/min/1.73 sq.m. Ages 40-49 = 99 mL/min/1.73 sq.m. Ages 50-59 = 93 mL/min/1.73 sq.m. Ages 60-69 = 85 mL/min/1.73 sq.m. Ages 70+ = 75 mL/min/1.73 sq.m. Chronic Kidney Disease: Less than 60 mL/min/1.73 square meters End Stage Renal Disease: Less than 15 mL/min/1.73 square meters Performed By: #### M ORPH, CBC, DIFF #### Rosa Maria[address] [address] GFR Non- >60 Normal [facility] ([place] Comment on above: Result Comment: GFR Population mean for , Non- Americans Ages 20-29 = 116 mL/min/1.73 sq.m. Ages 30-39 = 107 mL/min/1.73 sq.m. Ages 40-49 = 99 mL/min/1.73 sq.m. Ages 50-59 = 93 mL/min/1.73 sq.m. Ages 60-69 = 85 mL/min/1.73 sq.m. Ages 70+ = 75 mL/min/1.73 sq.m. Chronic Kidney Disease: Less than 60 mL/min/1.73 square meters End Stage Renal Disease: Less than 15 mL/min/1.73 square meters Performed By: #### M ORPH, CBC, DIFF #### [address] [address] .NEUABSon 02-06-2024 Neutrophil, Absolute 2.7 10 3/mcL Normal 2.3-8.1 [facility] ([place] Comment on above: Performed By: #### M ORPH, CBC, DIFF #### [address] [address] BMPon 02-06-2024 BUN/Creatinine Ratio 14.8 ratio Normal 10.0-22.0 [facility] ([place] Comment on above: Performed By: #### M ORPH, CBC, DIFF #### [address] [address] Calcium [Mass/Vol] 8.4 mg/dL Low 8.7-10.4 [facility] ([place] Comment on above: Performed By: #### M ORPH, CBC, DIFF #### [address] [address] Chloride [Moles/Vol] 107 mmol/L Normal 98-110 [facility] ([place] Comment on above: Performed By: #### M ORPH, CBC, DIFF #### [address] [address] CO2 [Moles/Vol] 29 mmol/L Normal 22-32 [facility] ([place] Comment on above: Performed By: #### M ORPH, CBC, DIFF #### [address] [address] Creatinine [Mass/Vol] 0.61 mg/dL Normal 0.50-1.20 [facility] ([place] Comment on above: Performed By: #### M ORPH, CBC, DIFF #### [address] [address] Electrolyte Balance 4.0 mEq/L Normal 4.0-15.0 [facility] ([place] Comment on above: Performed By: #### M ORPH, CBC, DIFF #### [address] [address] Glucose [Mass/Vol] 93 mg/dL Normal 82-115 [facility] ([place] Comment on above: Performed By: #### M ORPH, CBC, DIFF #### [address] [address] Potassium [Moles/Vol] 4.1 mmol/L Normal 3.5-5.0 [facility] ([place] Comment on above: Performed By: #### M ORPH, CBC, DIFF #### [address] [address] Sodium [Moles/Vol] 140 mmol/L Normal 136-145 [facility] ([place] Comment on above: Performed By: #### M ORPH, CBC, DIFF #### [address] [address] Urea nitrogen [Mass/Vol] 9.0 mg/dL Normal 8.0-22.0 [facility] ([place] Comment on above: Performed By: #### M ORPH, CBC, DIFF #### [address] [address] CBCon 02-06-2024 Erythrocyte distribution width (RBC) [Ratio] 16.3 % High 11.5-15.5 [facility] ([place] Comment on above: Performed By: #### M ORPH, CBC, DIFF #### [address] [address] Hematocrit (Bld) [Volume fraction] 28.6 % Low 34.0-46.0 [facility] ([place] Comment on above: Performed By: #### M ORPH, CBC, DIFF #### [address] [address] Hgb 9.5 G/dL Low 12.0-16.0 [facility] ([place] Comment on above: Performed By: #### M ORPH, CBC, DIFF #### [address] [address] MCH (RBC) [Entitic mass] 30.7 pg Normal 27.0-33.0 [facility] ([place] Comment on above: Performed By: #### M ORPH, CBC, DIFF #### [place] [address] MCHC 33.4 G/dL Normal 32.0-36.0 [facility] ([place] Comment on above: Performed By: #### M ORPH, CBC, DIFF #### [place] [address] MCV (RBC) [Entitic vol] 92.1 fL Normal 80.0-99.0 [facility] ([place] Comment on above: Performed By: #### M ORPH, CBC, DIFF #### [place] [address] Platelet 219 10 3/mcL Normal 150-450 [facility] ([place] Comment on above: Performed By: #### M ORPH, CBC, DIFF #### [place] [address] Platelet mean volume (Bld) [Entitic vol] 7.4 fL Normal 6.6-10.5 [facility] ([place] Comment on above: Performed By: #### M ORPH, CBC, DIFF #### [place] [id number] RBC 3.10 10 6/mcL Low 4.10-5.30 [facility] ([place] Comment on above: Performed By: #### M ORPH, CBC, DIFF #### [place] [address] WBC 4.2 10 3/mcL Low 4.5-10.8 [facility] ([place] Comment on above: Performed By: #### M ORPH, CBC, DIFF #### [address] [address] MGon 02-06-2024 Magnesium [Mass/Vol] 2.0 mg/dL Normal 1.6-2.4 [facility] ([place] Comment on above: Performed By: #### M ORPH, CBC, DIFF #### [address] [address] .Auto Diffon 02-05-2024 Basophil, Absolute 0.0 10 3/mcL Normal 0.0-0.3 [facility] ([place] Comment on above: Performed By: #### M ORPH, CBC, DIFF #### [address] [address] Basophils/100 WBC (Bld) 1.5 % Normal 0.0-2.5 [facility] ([place] Comment on above: Performed By: #### M ORPH, CBC, DIFF #### [address] [address] Eosinophil, Absolute 0.1 10 3/mcL Normal 0.0-0.7 [facility] ([place] Comment on above: Performed By: #### M ORPH, CBC, DIFF #### [address] [address] Eosinophils/100 WBC (Bld) 3.4 % Normal 0.0-6.0 [facility] ([place] Comment on above: Performed By: #### M ORPH, CBC, DIFF #### [address] [address] Lymphocyte, Absolute 0.8 10 3/mcL Low 0.9-4.3 [facility] ([place] Comment on above: Performed By: #### M ORPH, CBC, DIFF #### [address] [address] Lymphocytes/100 WBC (Bld) 26.8 % Normal 20.0-40.0 [facility] ([place] Comment on above: Performed By: #### M ORPH, CBC, DIFF #### [address] [address] Monocyte, Absolute 0.3 10 3/mcL Normal 0.1-1.4 [facility] ([place] Comment on above: Performed By: #### M ORPH, CBC, DIFF #### [address] [address] Monocytes/100 WBC (Bld) 10.9 % Normal 2.0-13.0 [facility] ([place] Comment on above: Performed By: #### M ORPH, CBC, DIFF #### [address] [address] Neutrophils/100 WBC (Bld) 57.4 % Normal 50.0-75.0 [facility] ([place] Comment on above: Performed By: #### M ORPH, CBC, DIFF #### [address] [address] .GFRon 02-05-2024 GFR >60 Normal [facility] ([place] Comment on above: Result Comment: GFR Population mean for , Non- Americans Ages 20-29 = 116 mL/min/1.73 sq.m. Ages 30-39 = 107 mL/min/1.73 sq.m. Ages 40-49 = 99 mL/min/1.73 sq.m. Ages 50-59 = 93 mL/min/1.73 sq.m. Ages 60-69 = 85 mL/min/1.73 sq.m. Ages 70+ = 75 mL/min/1.73 sq.m. Chronic Kidney Disease: Less than 60 mL/min/1.73 square meters End Stage Renal Disease: Less than 15 mL/min/1.73 square meters Performed By: #### M ORPH, CBC, DIFF #### [address] [address] GFR Non- >60 Normal [facility] ([place] Comment on above: Result Comment: GFR Population mean for , Non- Americans Ages 20-29 = 116 mL/min/1.73 sq.m. Ages 30-39 = 107 mL/min/1.73 sq.m. Ages 40-49 = 99 mL/min/1.73 sq.m. Ages 50-59 = 93 mL/min/1.73 sq.m. Ages 60-69 = 85 mL/min/1.73 sq.m. Ages 70+ = 75 mL/min/1.73 sq.m. Chronic Kidney Disease: Less than 60 mL/min/1.73 square meters End Stage Renal Disease: Less than 15 mL/min/1.73 square meters Performed By: #### M ORPH, CBC, DIFF #### [address] [address] .NEUABSon 02-05-2024 Neutrophil, Absolute 1.8 10 3/mcL Low 2.3-8.1 [facility] ([place] Comment on above: Performed By: #### M ORPH, CBC, DIFF #### [address] [address] BMPon 02-05-2024 BUN/Creatinine Ratio 20.3 ratio Normal 10.0-22.0 [facility] ([place] Comment on above: Order Comment: Routi ne for 0501 the morning of patient admission. Performed By: #### M ORPH, CBC, DIFF #### [address] [address] Calcium [Mass/Vol] 8.3 mg/dL Low 8.7-10.4 [facility] ([place] Comment on above: Order Comment: Routi ne for 0501 the morning of patient admission. Performed By: #### M ORPH, CBC, DIFF #### [address] [address] Chloride [Moles/Vol] 108 mmol/L Normal 98-110 [facility] ([place] Comment on above: Order Comment: Routi ne for 0501 the morning of patient admission. Performed By: #### M ORPH, CBC, DIFF #### [address] [address] CO2 [Moles/Vol] 27 mmol/L Normal 22-32 [facility] ([place] Comment on above: Order Comment: Routi ne for 0501 the morning of patient admission. Performed By: #### M ORPH, CBC, DIFF #### [address] [address] Creatinine [Mass/Vol] 0.59 mg/dL Normal 0.50-1.20 [facility] ([place] Comment on above: Order Comment: Routi ne for 0501 the morning of patient admission. Performed By: #### M ORPH, CBC, DIFF #### [place] [id number] Electrolyte Balance 7.0 mEq/L Normal 4.0-15.0 [facility] ([place] Comment on above: Order Comment: Routi ne for 0501 the morning of patient admission. Performed By: #### M ORPH, CBC, DIFF #### [place] [id number] Glucose [Mass/Vol] 85 mg/dL Normal 82-115 [facility] ([place] Comment on above: Order Comment: Routi ne for 0501 the morning of patient admission. Performed By: #### M ORPH, CBC, DIFF #### [place] [id number] Potassium [Moles/Vol] 4.1 mmol/L Normal 3.5-5.0 [facility] ([place] Comment on above: Order Comment: Routi ne for 0501 the morning of patient admission. Performed By: #### M ORPH, CBC, DIFF #### [place] [id number] Sodium [Moles/Vol] 142 mmol/L Normal 136-145 [facility] ([place] Comment on above: Order Comment: Routi ne for 0501 the morning of patient admission. Performed By: #### M ORPH, CBC, DIFF #### [place] [id number] Urea nitrogen [Mass/Vol] 12.0 mg/dL Normal 8.0-22.0 [facility] ([place] Comment on above: Order Comment: Routi ne for 0501 the morning of patient admission. Performed By: #### M ORPH, CBC, DIFF #### [address] [address] CBCon 06-29-2024 Erythrocyte distribution width (RBC) [Ratio] 16.1 % High 11.5-15.5 [facility] ([place] Comment on above: Order Comment: Routi ne for 0501 the morning of patient admission. Performed By: #### M ORPH, CBC, DIFF #### [place] [id number] Hematocrit (Bld) [Volume fraction] 30.3 % Low 34.0-46.0 [facility] ([place] Comment on above: Order Comment: Routi ne for 0501 the morning of patient admission. Performed By: #### M ORPH, CBC, DIFF #### [place] [id number] Hgb 10.0 G/dL Low 12.0-16.0 [facility] ([place] Comment on above: Order Comment: Routi ne for 0501 the morning of patient admission. Performed By: #### M ORPH, CBC, DIFF #### [place] [id number] MCH (RBC) [Entitic mass] 30.6 pg Normal 27.0-33.0 [facility] ([place] Comment on above: Order Comment: Routi ne for 0501 the morning of patient admission. Performed By: #### M ORPH, CBC, DIFF #### [place] [id number] MCHC 32.9 G/dL Normal 32.0-36.0 [facility] ([place] Comment on above: Order Comment: Routi ne for 0501 the morning of patient admission. Performed By: #### M ORPH, CBC, DIFF #### [place] [id number] MCV (RBC) [Entitic vol] 93.0 fL Normal 80.0-99.0 [facility] ([place] Comment on above: Order Comment: Routi ne for 0501 the morning of patient admission. Performed By: #### M ORPH, CBC, DIFF #### [place] [id number] Platelet 208 10 3/mcL Normal 150-450 [facility] ([place] Comment on above: Order Comment: Routi ne for 0501 the morning of patient admission. Performed By: #### M ORPH, CBC, DIFF #### [address] [address] Platelet mean volume (Bld) [Entitic vol] 7.7 fL Normal 6.6-10.5 [facility] ([place] Comment on above: Order Comment: Routi ne for 0501 the morning of patient admission. Performed By: #### M ORPH, CBC, DIFF #### [address] [address] RBC 3.26 10 6/mcL Low 4.10-5.30 [facility] ([place] Comment on above: Order Comment: Routi ne for 0501 the morning of patient admission. Performed By: #### M ORPH, CBC, DIFF #### [address] [address] WBC 3.2 10 3/mcL Low 4.5-10.8 [facility] ([place] Comment on above: Order Comment: Routi ne for 0501 the morning of patient admission. Performed By: #### M ORPH, CBC, DIFF #### [address] [address] .Auto Diffon 02-04-2024 Basophil, Absolute 0.1 10 3/mcL Normal 0.0-0.2 [facility] ([place] Comment on above: Performed By: #### M ORPH, CBC, DIFF #### [address] [address] Basophils/100 WBC (Bld) 1.4 % Normal 0.0-2.5 [facility] ([place] Comment on above: Performed By: #### M ORPH, CBC, DIFF #### [address] [address] Eosinophil, Absolute 0.2 10 3/mcL Normal 0.0-0.4 [facility] ([place] Comment on above: Performed By: #### M ORPH, CBC, DIFF #### [address] [address] Eosinophils/100 WBC (Bld) 3.5 % Normal 0.0-7.0 [facility] ([place] Comment on above: Performed By: #### M ORPH, CBC, DIFF #### [address] [address] Lymphocyte, Absolute 0.8 10 3/mcL Normal 0.8-3.9 [facility] ([place] Comment on above: Performed By: #### M ORPH, CBC, DIFF #### [address] [address] Lymphocytes/100 WBC (Bld) 16.1 % Normal 10.0-50.0 [facility] ([place] Comment on above: Performed By: #### M ORPH, CBC, DIFF #### [address] [address] Monocyte, Absolute 0.5 10 3/mcL Normal 0.2-1.0 [facility] ([place] Comment on above: Performed By: #### M ORPH, CBC, DIFF #### [address] [address] Monocytes/100 WBC (Bld) 11.2 % Normal 1.7-13.0 [facility] ([place] Comment on above: Performed By: #### M ORPH, CBC, DIFF #### [address] [address] Neutrophils/100 WBC (Bld) 67.8 % Normal 37.0-80.0 [facility] ([place] Comment on above: Performed By: #### M ORPH, CBC, DIFF #### [address] [address] .GFRon 02-04-2024 GFR 100 ml/min/1.73sqm Normal [facility] ([place] Comment on above: Result Comment: GFR Population mean for , Non- Americans Ages 20-29 = 116 mL/min/1.73 sq.m. Ages 30-39 = 107 mL/min/1.73 sq.m. Ages 40-49 = 99 mL/min/1.73 sq.m. Ages 50-59 = 93 mL/min/1.73 sq.m. Ages 60-69 = 85 mL/min/1.73 sq.m. Ages 70+ = 75 mL/min/1.73 sq.m. Chronic Kidney Disease: Less than 60 mL/min/1.73 square meters End Stage Renal Disease: Less than 15 mL/min/1.73 square meters Performed By: #### M ORPH, CBC, DIFF #### [address] [address] GFR Non- 82 ml/min/1.73sqm Normal [facility] ([place] Comment on above: Result Comment: GFR Population mean for , Non- Americans Ages 20-29 = 116 mL/min/1.73 sq.m. Ages 30-39 = 107 mL/min/1.73 sq.m. Ages 40-49 = 99 mL/min/1.73 sq.m. Ages 50-59 = 93 mL/min/1.73 sq.m. Ages 60-69 = 85 mL/min/1.73 sq.m. Ages 70+ = 75 mL/min/1.73 sq.m. Chronic Kidney Disease: Less than 60 mL/min/1.73 square meters End Stage Renal Disease: Less than 15 mL/min/1.73 square meters Performed By: #### M ORPH, CBC, DIFF #### [address] [address] .NEUABSon 02-04-2024 Neutrophil, Absolute 3.2 10 3/mcL Normal 2.9-6.2 [facility] ([place] Comment on above: Performed By: #### M ORPH, CBC, DIFF #### [address] [address] BMPon 02-04-2024 BUN/Creatinine Ratio 16 ratio Normal 7-27 [facility] ([place] Comment on above: Performed By: #### M ORPH, CBC, DIFF #### [address] [address] Calcium [Mass/Vol] 8.0 mg/dL Low 8.4-10.2 [facility] ([place] Comment on above: Performed By: #### M ORPH, CBC, DIFF #### [address] [address] Chloride [Moles/Vol] 104 mmol/L Normal 98-107 [facility] ([place] Comment on above: Performed By: #### M ORPH, CBC, DIFF #### [address] [address] CO2 [Moles/Vol] 29 mmol/L Normal 23-31 [facility] ([place] Comment on above: Performed By: #### M ORPH, CBC, DIFF #### [address] [address] Creatinine [Mass/Vol] 0.68 mg/dL Normal 0.55-1.02 [facility] ([place] Comment on above: Performed By: #### M ORPH, CBC, DIFF #### [address] [address] Electrolyte Balance 8.0 mEq/L Normal 4.0-15.0 [facility] ([place] Comment on above: Performed By: #### M ORPH, CBC, DIFF #### [address] [address] Glucose [Mass/Vol] 86 mg/dL Normal 83-110 [facility] ([place] Comment on above: Performed By: #### M ORPH, CBC, DIFF #### [address] [address] Potassium [Moles/Vol] 3.9 mmol/L Normal 3.5-5.1 [facility] ([place] Comment on above: Performed By: #### M ORPH, CBC, DIFF #### [address] [address] Sodium [Moles/Vol] 141 mmol/L Normal 136-145 [facility] ([place] Comment on above: Performed By: #### M ORPH, CBC, DIFF #### [address] [address] Urea nitrogen [Mass/Vol] 11 mg/dL Normal 7-18 [facility] ([place] Comment on above: Performed By: #### M ORPH, CBC, DIFF #### [address] [address] CBCon 02-04-2024 Erythrocyte distribution width (RBC) [Ratio] 15.9 % High 11.5-14.5 [facility] ([place] Comment on above: Performed By: #### M LISA, CBC, DIFF #### [address] [address] Hematocrit (Bld) [Volume fraction] 28.7 % Low 37.0-47.0 [facility] ([place] Comment on above: Performed By: #### M ORADILENE, CBC, DIFF #### [address] [address] Hgb 9.5 G/dL Low 12.0-16.0 [facility] ([place] Comment on above: Performed By: #### M LISA, CBC, DIFF #### [address] [address] MCH (RBC) [Entitic mass] 31.1 pg Normal 27.0-31.2 [facility] ([place] Comment on above: Performed By: #### M ORADILENE, CBC, DIFF #### [address] [address] MCHC 33.1 G/dL Normal 33.0-37.0 [facility] ([place] Comment on above: Performed By: #### M LISA, CBC, DIFF #### [address] [address] MCV (RBC) [Entitic vol] 93.9 fL Normal 80.0-94.0 [facility] ([place] Comment on above: Performed By: #### M ORADILENE, CBC, DIFF #### [address] [address] Platelet 187 10 3/mcL Normal 130-400 [facility] ([place] Comment on above: Performed By: #### M ORPH, CBC, DIFF #### [address] [address] Platelet mean volume (Bld) [Entitic vol] 7.4 fL Normal 7.4-10.4 [facility] ([place] Comment on above: Performed By: #### M ORPH, CBC, DIFF #### [address] [address] RBC 3.05 10 6/mcL Low 4.20-5.40 [facility] ([place] Comment on above: Performed By: #### M ORPH, CBC, DIFF #### [address] [address] WBC 4.8 10 3/mcL Normal 4.6-10.8 [facility] ([place] Comment on above: Performed By: #### M ORPH, CBC, DIFF #### [address] [address] LABORATORYOrdered By: SYSTEM SYSTEM on 02-04-2024 Basophil, Absolute 0.1 103/mcL Normal 0.0 - 0.2 10^3/mcL AO Workflow SS Basophils/100 WBC (Bld) 1.4 % Normal 0.0 - 2.5 % AO Workflow SS Calcium [Mass/Vol] 8.0 mg/dL Low 8.4 - 10. 2 mg/dL AO ADM SS Chloride [Moles/Vol] 104 mmol/L Normal 98 - 10 7 mmol/L AO ADM SS CO2 [Moles/Vol] 29 mmol/L Normal 23 - 31 mmol/L AO ADM SS Creatinine [Mass/Vol] 0.68 mg/dL Normal 0.55 - 1.02 mg/dL AO ADM SS Electrolyte Balance 8.0 mEq/L Normal 4.0 - 15 .0 mEq/L AO ADM SS Eosinophil, Absolute 0.2 103/mcL Normal 0.0 - 0 .4 10^3/mcL AO Workflow SS Eosinophils/100 WBC (Bld) 3.5 % Normal 0.0 - 7.0 % AO Workflow SS Erythrocyte distribution width (RBC) [Ratio] 15.9 % High 11.5 - 14.5 % AO Workflow SS GFR/1.73 sq M.predicted among blacks MDRD (S/P/Bld) [Vol rate/Area] 100 ml/min/1.73sqm Invalid Interpretation Code AO Chemistry S Comment on above: Interpretive Data: GFR Population mean for , Non- Americans Ages 20-29 = 116 mL/min/1.73 sq.m. Ages 30-39 = 107 mL/min/1.73 sq.m. Ages 40-49 = 99 mL/min/1.73 sq.m. Ages 50-59 = 93 mL/min/1.73 sq.m. Ages 60-69 = 85 mL/min/1.73 sq.m. Ages 70+ = 75 mL/min/1.73 sq.m. Chronic Kidney Disease: Less than 60 mL/min/1.73 square meters End Stage Renal Disease: Less than 15 mL/min/1.73 square meters GFR/1.73 sq M.predicted among non-blacks MDRD (S/P/Bld) [Vol rate/Area] 82 ml/min/1.73sqm Invalid Interpretation Code AO Chemistry S Comment on above: Interpretive Data: GFR Population mean for , Non- Americans Ages 20-29 = 116 mL/min/1.73 sq.m. Ages 30-39 = 107 mL/min/1.73 sq.m. Ages 40-49 = 99 mL/min/1.73 sq.m. Ages 50-59 = 93 mL/min/1.73 sq.m. Ages 60-69 = 85 mL/min/1.73 sq.m. Ages 70+ = 75 mL/min/1.73 sq.m. Chronic Kidney Disease: Less than 60 mL/min/1.73 square meters End Stage Renal Disease: Less than 15 mL/min/1.73 square meters Glucose [Mass/Vol] 86 mg/dL Normal 83 - 110 mg/dL AO ADM SS Hematocrit (Bld) [Volume fraction] 28.7 % Low 37.0 - 47.0 % AO Workflow SS Hemoglobin (Bld) [Mass/Vol] 9.5 G/dL Low 12.0 - 16.0 G/dL AO Workflow SS Lymphocyte, Absolute 0.8 103/mcL Normal 0.8 - 3 .9 10^3/mcL AO Workflow SS Lymphocytes/100 WBC (Bld) 16.1 % Normal 10.0 - 50.0 % AO Workflow SS Magnesium [Mass/Vol] 2.0 mg/dL Normal 1.8 - 2 .4 mg/dL AO ADM SS MCH (RBC) [Entitic mass] 31.1 pg Normal 27.0 - 31.2 pg AO Workflow SS MCHC 33.1 G/dL Normal 33.0 - 37.0 G/dL AO Workflow SS MCV (RBC) [Entitic vol] 93.9 fL Normal 80.0 - 94.0 fL AO Workflow SS Monocyte, Absolute 0.5 103/mcL Normal 0.2 - 1.0 10^3/mcL AO Workflow SS Monocytes/100 WBC (Bld) 11.2 % Normal 1.7 - 13.0 % AO Workflow SS Neutrophil, Absolute 3.2 103/mcL Normal 2.9 - 6 .2 10^3/mcL AO Workflow SS Neutrophils/100 WBC (Bld) 67.8 % Normal 37.0 - 80.0 % AO Workflow SS Platelet mean volume (Bld) [Entitic vol] 7.4 fL Normal 7.4 - 10.4 fL AO Workflow SS Platelets (Bld) [#/Vol] 187 103/mcL Normal 130 - 400 10^3/mcL AO Workflow SS Potassium [Moles/Vol] 3.9 mmol/L Normal 3.5 - 5.1 mmol/L AO ADM SS RBC (Bld) [#/Vol] 3.05 106/mcL Low 4.20 - 5.40 10^6/mcL AO Workflow SS Sodium [Moles/Vol] 141 mmol/L Normal 136 - 145 mmol/L AO ADM SS Urea nitrogen [Mass/Vol] 11 mg/dL Normal 7 - 18 mg/dL AO ADM SS Urea nitrogen/Creatinine [Mass ratio] 16 ratio Normal 7 - 27 ratio AO ADM SS WBC (Bld) [#/Vol] 4.8 103/mcL Normal 4.6 - 10.8 10^3/mcL AO Workflow SS MGon 02-04-2024 Magnesium [Mass/Vol] 2.0 mg/dL Normal 1.8-2.4 [facility] ([place] Comment on above: Performed By: #### M ORPH, CBC, DIFF #### [place] [address] No Panel Informationon 02-03 Microscopic examination of blood, culture Culture has been received in lab and is no growth to date. Routine cultures are held for 5 days. [facility] .Auto Diffon 02-03-2024 Basophil, Absolute 0.0 10 3/mcL Normal 0.0-0.2 [facility] ([place] Comment on above: Performed By: #### A MANJULA, CBC, ADIFF, GFR, BMP #### [address] [address] Basophils/100 WBC (Bld) 0.7 % Normal 0.0-2.5 [facility] ([place] Comment on above: Performed By: #### A MANJULA, CBC, ADIFF, GFR, BMP #### [address] [address] Eosinophil, Absolute 0.1 10 3/mcL Normal 0.0-0.4 [facility] ([place] Comment on above: Performed By: #### A MANJULA, CBC, ADIFF, GFR, BMP #### [address] [address] Eosinophils/100 WBC (Bld) 2.4 % Normal 0.0-7.0 [facility] ([place] Comment on above: Performed By: #### A MANJULA, CBC, ADIFF, GFR, BMP #### [address] [address] Lymphocyte, Absolute 0.5 10 3/mcL Low 0.8-3.9 [facility] ([place] Comment on above: Performed By: #### A MANJULA, CBC, ADIFF, GFR, BMP #### [address] [address] Lymphocytes/100 WBC (Bld) 10.0 % Normal 10.0-50.0 [facility] ([place] Comment on above: Performed By: #### A MANJULA, CBC, ADIFF, GFR, BMP #### [address] [address] Monocyte, Absolute 0.5 10 3/mcL Normal 0.2-1.0 [facility] ([place] Comment on above: Performed By: #### A MANJULA, CBC, ADIFF, GFR, BMP #### [address] [address] Monocytes/100 WBC (Bld) 10.2 % Normal 1.7-13.0 [facility] ([place] Comment on above: Performed By: #### A MANJULA, CBC, ADIFF, GFR, BMP #### [address] [address] Neutrophils/100 WBC (Bld) 76.7 % Normal 37.0-80.0 [facility] ([place] Comment on above: Performed By: #### A MANJULA, CBC, ADIFF, GFR, BMP #### [place] [address] [place], [place] [address] .GFRon 02-03-2024 GFR 103 ml/min/1.73sqm Normal [facility] ([place] Comment on above: Result Comment: GFR Population mean for , Non- Americans Ages 20-29 = 116 mL/min/1.73 sq.m. Ages 30-39 = 107 mL/min/1.73 sq.m. Ages 40-49 = 99 mL/min/1.73 sq.m. Ages 50-59 = 93 mL/min/1.73 sq.m. Ages 60-69 = 85 mL/min/1.73 sq.m. Ages 70+ = 75 mL/min/1.73 sq.m. Chronic Kidney Disease: Less than 60 mL/min/1.73 square meters End Stage Renal Disease: Less than 15 mL/min/1.73 square meters Performed By: #### A MANJULA, CBC, ADIFF, GFR, BMP #### [address] [address] GFR Non- 85 ml/min/1.73sqm Normal [facility] ([place] Comment on above: Result Comment: GFR Population mean for , Non- Americans Ages 20-29 = 116 mL/min/1.73 sq.m. Ages 30-39 = 107 mL/min/1.73 sq.m. Ages 40-49 = 99 mL/min/1.73 sq.m. Ages 50-59 = 93 mL/min/1.73 sq.m. Ages 60-69 = 85 mL/min/1.73 sq.m. Ages 70+ = 75 mL/min/1.73 sq.m. Chronic Kidney Disease: Less than 60 mL/min/1.73 square meters End Stage Renal Disease: Less than 15 mL/min/1.73 square meters Performed By: #### A MANJULA, CBC, ADIFF, GFR, BMP #### [address] [address] .NEUABSon 02-03-2024 Neutrophil, Absolute 3.6 10 3/mcL Normal 2.9-6.2 [facility] ([place] Comment on above: Performed By: #### A MANJULA, CBC, ADIFF, GFR, BMP #### [address] [address] BMPon 02-03-2024 BUN/Creatinine Ratio 17 ratio Normal 7-27 [facility] ([place] Comment on above: Performed By: #### A MANJULA, CBC, ADIFF, GFR, BMP #### [address] [address] Calcium [Mass/Vol] 8.1 mg/dL Low 8.4-10.2 [facility] ([place] Comment on above: Performed By: #### A MANJULA, CBC, ADIFF, GFR, BMP #### [place] [id number] Chloride [Moles/Vol] 104 mmol/L Normal 98-107 [facility] ([place] Comment on above: Performed By: #### A MANJULA, CBC, ADIFF, GFR, BMP #### [place] [id number] CO2 [Moles/Vol] 29 mmol/L Normal 23-31 [facility] ([place] Comment on above: Performed By: #### A MANJULA, CBC, ADIFF, GFR, BMP #### [address] [address] Creatinine [Mass/Vol] 0.66 mg/dL Normal 0.55-1.02 [facility] ([place] Comment on above: Performed By: #### A MANJULA, CBC, ADIFF, GFR, BMP #### [address] [address] Electrolyte Balance 8.0 mEq/L Normal 4.0-15.0 [facility] ([place] Comment on above: Performed By: #### A MANJULA, CBC, ADIFF, GFR, BMP #### [place] [id number] Glucose [Mass/Vol] 89 mg/dL Normal 83-110 [facility] ([place] Comment on above: Performed By: #### A MANJULA, CBC, ADIFF, GFR, BMP #### [address] [address] Potassium [Moles/Vol] 3.9 mmol/L Normal 3.5-5.1 [facility] ([place] Comment on above: Performed By: #### A MANJULA, CBC, ADIFF, GFR, BMP #### [address] [address] Sodium [Moles/Vol] 141 mmol/L Normal 136-145 [facility] ([place] Comment on above: Performed By: #### A MANJULA, CBC, ADIFF, GFR, BMP #### [place] [address] Urea nitrogen [Mass/Vol] 11 mg/dL Normal 7-18 [facility] ([place] Comment on above: Performed By: #### A MANJULA, CBC, ADIFF, GFR, BMP #### [address] [address] CBCon 02-03-2024 Erythrocyte distribution width (RBC) [Ratio] 15.9 % High 11.5-14.5 [facility] ([place] Comment on above: Performed By: #### M G, CBC, BMP, ADIFF, ANEU, GFR #### [place] [phone] Hematocrit (Bld) [Volume fraction] 28.1 % Low 37.0-47.0 [facility] ([place] Comment on above: Performed By: #### M G, CBC, BMP, ADIFF, ANEU, GFR #### [place] [address] Hgb 9.4 G/dL Low 12.0-16.0 [facility] ([place] Comment on above: Performed By: #### M G, CBC, BMP, ADIFF, ANEU, GFR #### [address] [address] MCH (RBC) [Entitic mass] 31.1 pg Normal 27.0-31.2 [facility] ([place] Comment on above: Performed By: #### M G, CBC, BMP, ADIFF, ANEU, GFR #### [address] [address] MCHC 33.3 G/dL Normal 33.0-37.0 [facility] ([place] Comment on above: Performed By: #### M G, CBC, BMP, ADIFF, ANEU, GFR #### [place] [address] MCV (RBC) [Entitic vol] 93.4 fL Normal 80.0-94.0 [facility] ([place] Comment on above: Performed By: #### M G, CBC, BMP, ADIFF, ANEU, GFR #### [place] [address] Platelet 187 10 3/mcL Normal 130-400 [facility] ([place] Comment on above: Performed By: #### M G, CBC, BMP, ADIFF, ANEU, GFR #### [place] [address] Platelet mean volume (Bld) [Entitic vol] 7.7 fL Normal 7.4-10.4 [facility] ([place] Comment on above: Performed By: #### M G, CBC, BMP, ADIFF, ANEU, GFR #### [place] [address] RBC 3.01 10 6/mcL Low 4.20-5.40 [facility] ([place] Comment on above: Performed By: #### M G, CBC, BMP, ADIFF, ANEU, GFR #### [place] [id number] WBC 4.7 10 3/mcL Normal 4.6-10.8 [facility] ([place] Comment on above: Performed By: #### M G, CBC, BMP, ADIFF, ANEU, GFR #### [place] [address] LABORATORYOrdered By: SYSTEM SYSTEM on 02-03-2024 Basophil, Absolute 0.0 103/mcL Normal 0.0 - 0.2 10^3/mcL AO Workflow SS Basophils/100 WBC (Bld) 0.7 % Normal 0.0 - 2.5 % AO Workflow SS Calcium [Mass/Vol] 8.1 mg/dL Low 8.4 - 10. 2 mg/dL AO ADM SS Chloride [Moles/Vol] 104 mmol/L Normal 98 - 10 7 mmol/L AO ADM SS CO2 [Moles/Vol] 29 mmol/L Normal 23 - 31 mmol/L AO ADM SS Creatinine [Mass/Vol] 0.66 mg/dL Normal 0.55 - 1.02 mg/dL AO ADM SS Electrolyte Balance 8.0 mEq/L Normal 4.0 - 15 .0 mEq/L AO ADM SS Eosinophil, Absolute 0.1 103/mcL Normal 0.0 - 0 .4 10^3/mcL AO Workflow SS Eosinophils/100 WBC (Bld) 2.4 % Normal 0.0 - 7.0 % AO Workflow SS Erythrocyte distribution width (RBC) [Ratio] 15.9 % High 11.5 - 14.5 % AO Workflow SS GFR/1.73 sq M.predicted among blacks MDRD (S/P/Bld) [Vol rate/Area] 103 ml/min/1.73sqm Invalid Interpretation Code AO Chemistry S Comment on above: Interpretive Data: GFR Population mean for , Non- Americans Ages 20-29 = 116 mL/min/1.73 sq.m. Ages 30-39 = 107 mL/min/1.73 sq.m. Ages 40-49 = 99 mL/min/1.73 sq.m. Ages 50-59 = 93 mL/min/1.73 sq.m. Ages 60-69 = 85 mL/min/1.73 sq.m. Ages 70+ = 75 mL/min/1.73 sq.m. Chronic Kidney Disease: Less than 60 mL/min/1.73 square meters End Stage Renal Disease: Less than 15 mL/min/1.73 square meters GFR/1.73 sq M.predicted among non-blacks MDRD (S/P/Bld) [Vol rate/Area] 85 ml/min/1.73sqm Invalid Interpretation Code AO Chemistry S Comment on above: Interpretive Data: GFR Population mean for , Non- Americans Ages 20-29 = 116 mL/min/1.73 sq.m. Ages 30-39 = 107 mL/min/1.73 sq.m. Ages 40-49 = 99 mL/min/1.73 sq.m. Ages 50-59 = 93 mL/min/1.73 sq.m. Ages 60-69 = 85 mL/min/1.73 sq.m. Ages 70+ = 75 mL/min/1.73 sq.m. Chronic Kidney Disease: Less than 60 mL/min/1.73 square meters End Stage Renal Disease: Less than 15 mL/min/1.73 square meters Glucose [Mass/Vol] 89 mg/dL Normal 83 - 110 mg/dL AO ADM SS Hematocrit (Bld) [Volume fraction] 28.1 % Low 37.0 - 47.0 % AO Workflow SS Hemoglobin (Bld) [Mass/Vol] 9.4 G/dL Low 12.0 - 16.0 G/dL AO Workflow SS Lymphocyte, Absolute 0.5 103/mcL Low 0.8 - 3 .9 10^3/mcL AO Workflow SS Lymphocytes/100 WBC (Bld) 10.0 % Normal 10.0 - 50.0 % AO Workflow SS Magnesium [Mass/Vol] 2.0 mg/dL Normal 1.8 - 2 .4 mg/dL AO ADM SS MCH (RBC) [Entitic mass] 31.1 pg Normal 27.0 - 31.2 pg AO Workflow SS MCHC 33.3 G/dL Normal 33.0 - 37.0 G/dL AO Workflow SS MCV (RBC) [Entitic vol] 93.4 fL Normal 80.0 - 94.0 fL AO Workflow SS Monocyte, Absolute 0.5 103/mcL Normal 0.2 - 1.0 10^3/mcL AO Workflow SS Monocytes/100 WBC (Bld) 10.2 % Normal 1.7 - 13.0 % AO Workflow SS Neutrophil, Absolute 3.6 103/mcL Normal 2.9 - 6 .2 10^3/mcL AO Workflow SS Neutrophils/100 WBC (Bld) 76.7 % Normal 37.0 - 80.0 % AO Workflow SS Platelet mean volume (Bld) [Entitic vol] 7.7 fL Normal 7.4 - 10.4 fL AO Workflow SS Platelets (Bld) [#/Vol] 187 103/mcL Normal 130 - 400 10^3/mcL AO Workflow SS Potassium [Moles/Vol] 3.9 mmol/L Normal 3.5 - 5.1 mmol/L AO ADM SS RBC (Bld) [#/Vol] 3.01 106/mcL Low 4.20 - 5.40 10^6/mcL AO Workflow SS Sodium [Moles/Vol] 141 mmol/L Normal 136 - 145 mmol/L AO ADM SS Urea nitrogen [Mass/Vol] 11 mg/dL Normal 7 - 18 mg/dL AO ADM SS Urea nitrogen/Creatinine [Mass ratio] 17 ratio Normal 7 - 27 ratio AO ADM SS WBC (Bld) [#/Vol] 4.7 103/mcL Normal 4.6 - 10.8 10^3/mcL AO Workflow SS MGon 02-03-2024 Magnesium [Mass/Vol] 2.0 mg/dL Normal 1.8-2.4 [facility] ([place] Comment on above: Performed By: #### A MANJULA, CBC, ADIFF, GFR, BMP #### [address] [address] No Panel Informationon 02-02 GSANA Gram Positive Cocci in pairs [facility] Microscopic examination of blood, culture Culture has been received in lab and is no growth to date. Routine cultures are held for 5 days. [facility] .GFRon 02-02-2024 GFR 105 ml/min/1.73sqm Normal [facility] ([place] Comment on above: Result Comment: GFR Population mean for , Non- Americans Ages 20-29 = 116 mL/min/1.73 sq.m. Ages 30-39 = 107 mL/min/1.73 sq.m. Ages 40-49 = 99 mL/min/1.73 sq.m. Ages 50-59 = 93 mL/min/1.73 sq.m. Ages 60-69 = 85 mL/min/1.73 sq.m. Ages 70+ = 75 mL/min/1.73 sq.m. Chronic Kidney Disease: Less than 60 mL/min/1.73 square meters End Stage Renal Disease: Less than 15 mL/min/1.73 square meters Performed By: #### M ORPH, CBC, DIFF #### [place] [address] GFR Non- 87 ml/min/1.73sqm Normal [facility] ([place] Comment on above: Result Comment: GFR Population mean for , Non- Americans Ages 20-29 = 116 mL/min/1.73 sq.m. Ages 30-39 = 107 mL/min/1.73 sq.m. Ages 40-49 = 99 mL/min/1.73 sq.m. Ages 50-59 = 93 mL/min/1.73 sq.m. Ages 60-69 = 85 mL/min/1.73 sq.m. Ages 70+ = 75 mL/min/1.73 sq.m. Chronic Kidney Disease: Less than 60 mL/min/1.73 square meters End Stage Renal Disease: Less than 15 mL/min/1.73 square meters Performed By: #### M ORPH, CBC, DIFF #### [place] [address] .Manual Diffon 02-02-2024 Basophil %, Manual 0.0 % Normal 0.0-2.5 [facility] ([place] Comment on above: Performed By: #### M ORPH, CBC, DIFF #### [place] [address] Basophil, Abs Manual 0.0 10 3/mcL Normal 0.0-0.2 [facility] ([place] Comment on above: Performed By: #### M ORPH, CBC, DIFF #### [place] [address] Eosinophil %, Manual 0.0 % Normal 0.0-7.0 [facility] ([place] Comment on above: Performed By: #### M ORPH, CBC, DIFF #### [place] [address] Eosinophil, Abs Manual 0.0 10 3/mcL Normal 0.0-0.4 [facility] ([place] Comment on above: Performed By: #### M ORPH, CBC, DIFF #### [address] [address] Lymphocyte %, Manual 13.0 % Normal 10.0-50.0 [facility] ([place] Comment on above: Performed By: #### M ORPH, CBC, DIFF #### [address] [address] Lymphocyte, Abs Manual 1.1 10 3/mcL Normal 0.8-3.9 [facility] ([place] Comment on above: Performed By: #### M ORPH, CBC, DIFF #### [address] [address] Monocyte %, Manual 5.0 % Normal 1.7-13.0 [facility] ([place] Comment on above: Performed By: #### M ORPH, CBC, DIFF #### [address] [address] Monocyte, Abs Manual 0.4 10 3/mcL Normal 0.2-1.0 [facility] ([place] Comment on above: Performed By: #### M ORPH, CBC, DIFF #### [address] [address] Neutrophil %, Manual 82.0 % High 37.0-80.0 [facility] ([place] Comment on above: Performed By: #### M ORPH, CBC, DIFF #### [address] [address] Neutrophil, Abs Manual 6.8 10 3/mcL High 2.9-6.2 [facility] ([place] Comment on above: Performed By: #### M ORPH, CBC, DIFF #### [address] [address] Nucleated RBC 0.0 /100 WBC Normal [facility] ([place] Comment on above: Performed By: #### M ORPH, CBC, DIFF #### [address] [address] .Morphon 02-02-2024 Anisocytosis Ql (Bld) 1+ Normal [facility] ([place] Comment on above: Performed By: #### M ORPH, CBC, DIFF #### [facility] [address] [place] [address] Microcytosis 1+ Normal [facility] ([place] Comment on above: Performed By: #### M ORPH, CBC, DIFF #### [place] [id number] [address] [place] [address] Platelet Estimate Normal Normal [facility] ([place] Comment on above: Performed By: #### M ORPH, CBC, DIFF #### [facility] [address] [place] [address] BMPon 02-02-2024 BUN/Creatinine Ratio 23 ratio Normal 7-27 [facility] ([place] Comment on above: Performed By: #### U A #### [address] [address] Calcium [Mass/Vol] 8.1 mg/dL Low 8.4-10.2 [facility] ([place] Comment on above: Performed By: #### U A #### [address] [address] Chloride [Moles/Vol] 103 mmol/L Normal 98-107 [facility] ([place] Comment on above: Performed By: #### U A #### [address] [address] CO2 [Moles/Vol] 28 mmol/L Normal 23-31 [facility] ([place] Comment on above: Performed By: #### U A #### [address] [address] Creatinine [Mass/Vol] 0.65 mg/dL Normal 0.55-1.02 [facility] ([place] Comment on above: Performed By: #### U A #### [address] [address] Electrolyte Balance 8.0 mEq/L Normal 4.0-15.0 [facility] ([place] Comment on above: Performed By: #### U A #### [address] [address] Glucose [Mass/Vol] 98 mg/dL Normal 83-110 [facility] ([place] Comment on above: Performed By: #### U A #### [address] [place], [place] [address] Potassium [Moles/Vol] 3.7 mmol/L Normal 3.5-5.1 [facility] ([place] Comment on above: Performed By: #### U A #### [address] [place], [place] [address] Sodium [Moles/Vol] 139 mmol/L Normal 136-145 [facility] ([place] Comment on above: Performed By: #### U A #### [address] [address] Urea nitrogen [Mass/Vol] 15 mg/dL Normal 7-18 [facility] ([place] Comment on above: Performed By: #### U A #### [address] [address] CBCon 02-02-2024 Erythrocyte distribution width (RBC) [Ratio] 16.1 % High 11.5-14.5 [facility] ([place] Comment on above: Order Comment: QNSQu estionable results Performed By: #### M ORPH, CBC, DIFF #### [address] [address] Platelet 187 10 3/mcL Normal 130-400 [facility] ([place] Comment on above: Order Comment: QNSQu estionable results Performed By: #### M ORPH, CBC, DIFF #### [address] [address] Platelet mean volume (Bld) [Entitic vol] 7.7 fL Normal 7.4-10.4 [facility] ([place] Comment on above: Order Comment: QNSQu estionable results Performed By: #### M ORPH, CBC, DIFF #### [address] [address] Hematocrit (Bld) [Volume fraction] 31.1 % Low 37.0-47.0 [facility] ([place] Comment on above: Order Comment: QNSQu estionable results Performed By: #### M ORPH, CBC, DIFF #### [place] [address] Hgb 10.3 G/dL Low 12.0-16.0 [facility] ([place] Comment on above: Order Comment: QNSQu estionable results Performed By: #### M ORPH, CBC, DIFF #### [place] [address] MCH (RBC) [Entitic mass] 31.1 pg Normal 27.0-31.2 [facility] ([place] Comment on above: Order Comment: QNSQu estionable results Performed By: #### M ORPH, CBC, DIFF #### [place] [address] MCHC 33.1 G/dL Normal 33.0-37.0 [facility] ([place] Comment on above: Order Comment: QNSQu estionable results Performed By: #### M ORPH, CBC, DIFF #### [place] [address] MCV (RBC) [Entitic vol] 94.0 fL Normal 80.0-94.0 [facility] ([place] Comment on above: Order Comment: QNSQu estionable results Performed By: #### M ORPH, CBC, DIFF #### [place] [address] RBC 3.30 10 6/mcL Low 4.20-5.40 [facility] ([place] Comment on above: Order Comment: QNSQu estionable results Performed By: #### M ORPH, CBC, DIFF #### [place] [address] WBC 8.4 10 3/mcL Normal 4.6-10.8 [facility] ([place] Comment on above: Order Comment: QNSQu estionable results Performed By: #### M ORPH, CBC, DIFF #### [place] [address] CT ABDOMEN/PELVIS W/CONTRAST on 02-02-2024 CT ABDOMEN/PELVIS W/CONTRAST ORIGINAL EXAMINATION: CT OF THE ABDOMEN AND PELVIS WITH CONTRAST02/02/2024 4:25 pm TECHNIQUE: CT of the abdomen and pelvis was performed with the administration of intravenous contrast. Multiplanar reformatted images are provided for review. Automated exposure control, iterative reconstruction, and/or weight based adjustment of the mA/kV was utilized to reduce the radiation dose to as low as reasonably achievable. COMPARISON: None HISTORY: ORDERING SYSTEM PROVIDED HISTORY: Reason for Exam: Bacteremia w/o clear source FINDINGS: The liver, adrenals, kidneys, spleen, and pancreas are unremarkable. The gallbladder is mostly contracted. There is atherosclerosis of the abdominal aorta without aneurysmal dilatation. There are no enlarged lymph nodes. The bowel is unremarkable. There is no free air or free fluid. There has been prior hysterectomy. The urinary bladder is unremarkable. 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 There is mild atelectasis at the lung bases. There is a very large hiatal hernia containing essentially the entire stomach. IMPRESSION: No acute abnormality. Very large hiatal hernia. Interpreted by: Carlos Mendoza Preliminary Report By: Carlos Mendoza Electronically signed By Carlos Mendoza Dictated Date: 02/02/2024 5:31:09 PM Prelim Date: 02/02/2024 5:34:24 PM Sign Date: 02/02/2024 5:34:24 PM Ordering Provider: KUMAR Woody [facility] ([place] LABORATORYOrdered By: SYSTEM SYSTEM on 02-02-2024 Anisocytosis Ql (Bld) 1+ *NA* (02/02/24 7:25 AM) Invalid Interpretation Code AO Workflow SS Basophil %, Manual 0.0 % Normal 0.0 - 2.5 % AO Workflow SS Basophil, Abs Manual 0.0 103/mcL Normal 0.0 - 0 .2 10^3/mcL AO Workflow SS Eosinophil %, Manual 0.0 % Normal 0.0 - 7 .0 % AO Workflow SS Eosinophils (Bld) [#/Vol] 0.0 103/mcL Normal 0.0 - 0.4 10^3/mcL AO Workflow SS Erythrocyte distribution width (RBC) [Ratio] 16.1 % High 11.5 - 14.5 % AO Workflow SS Hematocrit (Bld) [Volume fraction] 31.1 % Low 37.0 - 47.0 % AO Workflow SS Hemoglobin (Bld) [Mass/Vol] 10.3 G/dL Low 12.0 - 16.0 G/dL AO Workflow SS Lymphocyte %, Manual 13.0 % Normal 10.0 - 50.0 % AO Workflow SS Lymphocyte, Abs Manual 1.1 103/mcL Normal 0.8 - 3.9 10^3/mcL AO Workflow SS MCH (RBC) [Entitic mass] 31.1 pg Normal 27.0 - 31.2 pg AO Workflow SS MCHC 33.1 G/dL Normal 33.0 - 37.0 G/dL AO Workflow SS MCV (RBC) [Entitic vol] 94.0 fL Normal 80.0 - 94.0 fL AO Workflow SS Microcytes Ql (Bld) 1+ *NA* (02/02/24 7:25 AM) Invalid Interpretation Code AO Workflow SS Monocyte %, Manual 5.0 % Normal 1.7 - 13. 0 % AO Workflow SS Monocyte, Abs Manual 0.4 103/mcL Normal 0.2 - 1 .0 10^3/mcL AO Workflow SS Neutrophil %, Manual 82.0 % High 37.0 - 80.0 % AO Workflow SS Neutrophil, Abs Manual 6.8 103/mcL High 2.9 - 6.2 10^3/mcL AO Workflow SS Nucleated RBC 0.0 /100 WBC Invalid Interpretation Code AO Workflow SS Platelet Estimate Normal *NA* (02/02/24 7:25 AM) Invalid Interpretation Code AO Workflow SS Platelet mean volume (Bld) [Entitic vol] 7.7 fL Normal 7.4 - 10.4 fL AO Workflow SS Platelets (Bld) [#/Vol] 187 103/mcL Normal 130 - 400 10^3/mcL AO Workflow SS RBC (Bld) [#/Vol] 3.30 106/mcL Low 4.20 - 5.40 10^6/mcL AO Workflow SS WBC (Bld) [#/Vol] 8.4 103/mcL Normal 4.6 - 10.8 10^3/mcL AO Workflow SS Calcium [Mass/Vol] 8.1 mg/dL Low 8.4 - 10. 2 mg/dL AO ADM SS Chloride [Moles/Vol] 103 mmol/L Normal 98 - 10 7 mmol/L AO ADM SS CO2 [Moles/Vol] 28 mmol/L Normal 23 - 31 mmol/L AO ADM SS Creatinine [Mass/Vol] 0.65 mg/dL Normal 0.55 - 1.02 mg/dL AO ADM SS Electrolyte Balance 8.0 mEq/L Normal 4.0 - 15 .0 mEq/L AO ADM SS GFR/1.73 sq M.predicted among blacks MDRD (S/P/Bld) [Vol rate/Area] 105 ml/min/1.73sqm Invalid Interpretation Code AO Chemistry S Comment on above: Interpretive Data: GFR Population mean for , Non- Americans Ages 20-29 = 116 mL/min/1.73 sq.m. Ages 30-39 = 107 mL/min/1.73 sq.m. Ages 40-49 = 99 mL/min/1.73 sq.m. Ages 50-59 = 93 mL/min/1.73 sq.m. Ages 60-69 = 85 mL/min/1.73 sq.m. Ages 70+ = 75 mL/min/1.73 sq.m. Chronic Kidney Disease: Less than 60 mL/min/1.73 square meters End Stage Renal Disease: Less than 15 mL/min/1.73 square meters GFR/1.73 sq M.predicted among non-blacks MDRD (S/P/Bld) [Vol rate/Area] 87 ml/min/1.73sqm Invalid Interpretation Code AO Chemistry S Comment on above: Interpretive Data: GFR Population mean for , Non- Americans Ages 20-29 = 116 mL/min/1.73 sq.m. Ages 30-39 = 107 mL/min/1.73 sq.m. Ages 40-49 = 99 mL/min/1.73 sq.m. Ages 50-59 = 93 mL/min/1.73 sq.m. Ages 60-69 = 85 mL/min/1.73 sq.m. Ages 70+ = 75 mL/min/1.73 sq.m. Chronic Kidney Disease: Less than 60 mL/min/1.73 square meters End Stage Renal Disease: Less than 15 mL/min/1.73 square meters Glucose [Mass/Vol] 98 mg/dL Normal 83 - 110 mg/dL AO ADM SS Magnesium [Mass/Vol] 2.0 mg/dL Normal 1.8 - 2 .4 mg/dL AO ADM SS Potassium [Moles/Vol] 3.7 mmol/L Normal 3.5 - 5.1 mmol/L AO ADM SS Sodium [Moles/Vol] 139 mmol/L Normal 136 - 145 mmol/L AO ADM SS Urea nitrogen [Mass/Vol] 15 mg/dL Normal 7 - 18 mg/dL AO ADM SS Urea nitrogen/Creatinine [Mass ratio] 23 ratio Normal 7 - 27 ratio AO ADM SS MGon 02-02-2024 Magnesium [Mass/Vol] 2.0 mg/dL Normal 1.8-2.4 [facility] ([place] Comment on above: Performed By: #### U A #### [address] [address] No Panel Informationon 02-01 Enterococcus faecalis Enterococcus faecalis [facility] GSAER Gram Positive Cocci in pairs [facility] Microscopic examination of blood, culture Enterococcus faecalis Isolated from aerobe bottle only. Refer to previous culture for susceptibility. [id number] collected 01-31-24 [facility] .GFRon 02-01-2024 GFR Non- 67 ml/min/1.73sqm Normal [facility] ([place] Comment on above: Result Comment: GFR Population mean for , Non- Americans Ages 20-29 = 116 mL/min/1.73 sq.m. Ages 30-39 = 107 mL/min/1.73 sq.m. Ages 40-49 = 99 mL/min/1.73 sq.m. Ages 50-59 = 93 mL/min/1.73 sq.m. Ages 60-69 = 85 mL/min/1.73 sq.m. Ages 70+ = 75 mL/min/1.73 sq.m. Chronic Kidney Disease: Less than 60 mL/min/1.73 square meters End Stage Renal Disease: Less than 15 mL/min/1.73 square meters Performed By: #### U A #### [place] [address] [place], [place] [address] GFR 82 ml/min/1.73sqm Normal [facility] ([place] Comment on above: Result Comment: GFR Population mean for , Non- Americans Ages 20-29 = 116 mL/min/1.73 sq.m. Ages 30-39 = 107 mL/min/1.73 sq.m. Ages 40-49 = 99 mL/min/1.73 sq.m. Ages 50-59 = 93 mL/min/1.73 sq.m. Ages 60-69 = 85 mL/min/1.73 sq.m. Ages 70+ = 75 mL/min/1.73 sq.m. Chronic Kidney Disease: Less than 60 mL/min/1.73 square meters End Stage Renal Disease: Less than 15 mL/min/1.73 square meters Performed By: #### U A #### [address] [address] .Manual Diffon 02-01-2024 Neutrophil, Abs Manual 7.1 10 3/mcL High 2.9-6.2 [facility] ([place] Comment on above: Performed By: #### U A #### [address] [address] Bands 5.0 % Normal 0.0-5.0 [facility] ([place] Comment on above: Performed By: #### U A #### [address] [address] Basophil %, Manual 1.0 % Normal 0.0-2.5 [facility] ([place] Comment on above: Performed By: #### U A #### [address] [address] Basophil, Abs Manual 0.1 10 3/mcL Normal 0.0-0.2 [facility] ([place] Comment on above: Performed By: #### U A #### [address] [address] Eosinophil %, Manual 1.0 % Normal 0.0-7.0 [facility] ([place] Comment on above: Performed By: #### U A #### [address] [address] Eosinophil, Abs Manual 0.1 10 3/mcL Normal 0.0-0.4 [facility] ([place] Comment on above: Performed By: #### U A #### [address] [address] Lymphocyte %, Manual 9.0 % Low 10.0-50.0 [facility] ([place] Comment on above: Performed By: #### U A #### [address] [address] Lymphocyte, Abs Manual 0.8 10 3/mcL Normal 0.8-3.9 [facility] ([place] Comment on above: Performed By: #### U A #### [address] [address] Monocyte %, Manual 5.0 % Normal 1.7-13.0 [facility] ([place] Comment on above: Performed By: #### U A #### [address] [address] Monocyte, Abs Manual 0.4 10 3/mcL Normal 0.2-1.0 [facility] ([place] Comment on above: Performed By: #### U A #### [address] [address] Neutrophil %, Manual 79.0 % Normal 37.0-80.0 [facility] ([place] Comment on above: Performed By: #### U A #### [address] [address] Nucleated RBC 0.0 /100 WBC Normal [facility] ([place] Comment on above: Performed By: #### U A #### [address] [address] .Morphon 02-01-2024 Ovalocytes 1+ Normal [facility] ([place] Comment on above: Performed By: #### U A #### [address] [address] Platelet Estimate Normal Normal [facility] ([place] Comment on above: Performed By: #### U A #### [address] [address] Toxic Gran 1+ Normal [facility] ([place] Comment on above: Performed By: #### U A #### [address] [address] Vacuolated Neutrophils 1+ Normal [facility] ([place] Comment on above: Performed By: #### U A #### [address] [address] CBCon 02-01-2024 Erythrocyte distribution width (RBC) [Ratio] 16.1 % High 11.5-14.5 [facility] ([place] Comment on above: Performed By: #### U A #### [address] [address] Hematocrit (Bld) [Volume fraction] 31.1 % Low 37.0-47.0 [facility] ([place] Comment on above: Performed By: #### U A #### [address] [address] Hgb 10.2 G/dL Low 12.0-16.0 [facility] ([place] Comment on above: Performed By: #### U A #### [address] [address] MCH (RBC) [Entitic mass] 30.9 pg Normal 27.0-31.2 [facility] ([place] Comment on above: Performed By: #### U A #### [address] [address] MCHC 32.9 G/dL Low 33.0-37.0 [facility] ([place] Comment on above: Performed By: #### U A #### [address] [address] MCV (RBC) [Entitic vol] 93.9 fL Normal 80.0-94.0 [facility] ([place] Comment on above: Performed By: #### U A #### [address] [address] Platelet 177 10 3/mcL Normal 130-400 [facility] ([place] Comment on above: Performed By: #### U A #### [address] [address] Platelet mean volume (Bld) [Entitic vol] 7.9 fL Normal 7.4-10.4 [facility] ([place] Comment on above: Performed By: #### U A #### [address] [address] RBC 3.31 10 6/mcL Low 4.20-5.40 [facility] ([place] Comment on above: Performed By: #### U A #### [address] [address] WBC 8.5 10 3/mcL Normal 4.6-10.8 [facility] ([place] Comment on above: Performed By: #### U A #### [address] [address] CMPon 02-01-2024 Albumin Level 2.5 G/dL Low 3.4-4.8 [facility] ([place] Comment on above: Performed By: #### U A #### [address] [address] Albumin/Globulin [Mass ratio] 0.6 {ratio} Low 1.1-2.5 [facility] ([place] Comment on above: Performed By: #### U A #### [address] [address] ALP [Catalytic activity/Vol] 90 U/L Normal 40-135 [facility] ([place] Comment on above: Performed By: #### U A #### [address] [address] ALT [Catalytic activity/Vol] 41 U/L Normal 14-59 [facility] ([place] Comment on above: Performed By: #### U A #### [address] [address] AST [Catalytic activity/Vol] 39 U/L Normal 10-40 [facility] ([place] Comment on above: Performed By: #### U A #### [address] [address] Bili Total 0.6 mg/dL Normal 0.2-1.0 [facility] ([place] Comment on above: Result Comment: Use of this assay is not recommended for patients undergoing treatment with eltrombopag due to the potential for falsely elevated results. Performed By: #### U A #### [address] [address] BUN/Creatinine Ratio 21 ratio Normal 7-27 [facility] ([place] Comment on above: Performed By: #### U A #### [address] [address] Calcium [Mass/Vol] 8.2 mg/dL Low 8.4-10.2 [facility] ([place] Comment on above: Performed By: #### U A #### [address] [address] Chloride [Moles/Vol] 99 mmol/L Normal 98-107 [facility] ([place] Comment on above: Performed By: #### U A #### [address] [address] CO2 [Moles/Vol] 26 mmol/L Normal 23-31 [facility] ([place] Comment on above: Performed By: #### U A #### [address] [address] Creatinine [Mass/Vol] 0.81 mg/dL Normal 0.55-1.02 [facility] ([place] Comment on above: Performed By: #### U A #### [address] [address] Electrolyte Balance 12.0 mEq/L Normal 4.0-15.0 [facility] ([place] Comment on above: Performed By: #### U A #### [address] [address] Globulin 4.1 G/dL Normal [facility] ([place] Comment on above: Performed By: #### U A #### [address] [address] Glucose [Mass/Vol] 121 mg/dL High 83-110 [facility] ([place] Comment on above: Performed By: #### U A #### [place] [address] [place], [place] [address] Potassium [Moles/Vol] 4.3 mmol/L Normal 3.5-5.1 [facility] ([place] Comment on above: Performed By: #### U A #### [address] [place] [address] [place], [place] [address] Sodium [Moles/Vol] 137 mmol/L Normal 136-145 [facility] ([place] Comment on above: Performed By: #### U A #### [address] [address] Total Protein 6.6 G/dL Normal 6.4-8.2 [facility] ([place] Comment on above: Performed By: #### U A #### [address] [place] [address] [place], [place] [address] Urea nitrogen [Mass/Vol] 17 mg/dL Normal 7-18 [facility] ([place] Comment on above: Performed By: #### U A #### [address] [address] LABORATORYOrdered By: SYSTEM SYSTEM on 02-01-2024 Albumin BCP dye [Mass/Vol] 2.5 G/dL Low 3.4 - 4.8 G/dL AO ADM SS Albumin/Globulin [Mass ratio] 0.6 {ratio} Low 1.1 - 2.5 ratio AO ADM SS ALP [Catalytic activity/Vol] 90 U/L Normal 40 - 135 U/L AO ADM SS ALT With P-5'-P [Catalytic activity/Vol] 41 U/L Normal 14 - 59 U/L AO ADM SS AST With P-5'-P [Catalytic activity/Vol] 39 U/L Normal 10 - 40 U/L AO ADM SS Bands 5.0 % Normal 0.0 - 5.0 % AO Workflow SS Basophil %, Manual 1.0 % Normal 0.0 - 2.5 % AO Workflow SS Basophil, Abs Manual 0.1 103/mcL Normal 0.0 - 0 .2 10^3/mcL AO Workflow SS Bilirubin [Mass/Vol] 0.6 mg/dL Normal 0.2 - 1 .0 mg/dL AO ADM SS Comment on above: Interpretive Data: U se of this assay is not recommended for patients undergoing treatment with eltrombopag due to the potential for falsely elevated results. Eosinophil %, Manual 1.0 % Normal 0.0 - 7 .0 % AO Workflow SS Eosinophils (Bld) [#/Vol] 0.1 103/mcL Normal 0.0 - 0.4 10^3/mcL AO Workflow SS Globulin 4.1 G/dL Invalid Interpretation Code AO ADM SS Lymphocyte %, Manual 9.0 % Low 10.0 - 50.0 % AO Workflow SS Lymphocyte, Abs Manual 0.8 103/mcL Normal 0.8 - 3.9 10^3/mcL AO Workflow SS Monocyte %, Manual 5.0 % Normal 1.7 - 13. 0 % AO Workflow SS Monocyte, Abs Manual 0.4 103/mcL Normal 0.2 - 1 .0 10^3/mcL AO Workflow SS Neutrophil %, Manual 79.0 % Normal 37.0 - 80.0 % AO Workflow SS Neutrophil, Abs Manual 7.1 103/mcL High 2.9 - 6.2 10^3/mcL AO Workflow SS Nucleated RBC 0.0 /100 WBC Invalid Interpretation Code AO Workflow SS Ovalocytes LM Ql (Bld) 1+ *NA* (02/01/24 2:45 PM) Invalid Interpretation Code AO Workflow SS Platelet Estimate Normal *NA* (02/01/24 2:45 PM) Invalid Interpretation Code AO Workflow SS Protein [Mass/Vol] 6.6 G/dL Normal 6.4 - 8.2 G/dL AO ADM SS Toxic Gran 1+ *NA* (02/01/24 2:45 PM) Invalid Interpretation Code AO Workflow SS Vacuolated Neutrophils 1+ *NA* (02/01/24 2:45 PM) Invalid Interpretation Code AO Workflow SS MGon 02-01-2024 Magnesium [Mass/Vol] 2.0 mg/dL Normal 1.8-2.4 [facility] ([place] Comment on above: Performed By: #### U A #### [address] [address] No Panel Informationon 01-31 GSAER Gram Positive Cocci in [facility] GSANA Gram Positive Cocci in [facility] Microscopic examination of blood, culture Culture has been received in lab and is no growth to date. Routine cultures are held for 5 days. [facility] .Auto Diffon 01-31-2024 Basophil, Absolute 0.0 10 3/mcL Normal 0.0-0.2 [facility] ([place] Comment on above: Performed By: #### A MANJULA, CBC, ADIFF, GFR, BMP #### [address] [address] Basophils/100 WBC (Bld) 0.3 % Normal 0.0-2.5 [facility] ([place]) Comment on above: Performed By: #### A MANJULA, CBC, ADIFF, GFR, BMP #### [address] [address] Eosinophil, Absolute 0.0 10 3/mcL Normal 0.0-0.4 [facility] ([place]) Comment on above: Performed By: #### A MANJULA, CBC, ADIFF, GFR, BMP #### [address] [address] Eosinophils/100 WBC (Bld) 1.0 % Normal 0.0-7.0 [facility] ([place]) Comment on above: Performed By: #### A MANJULA, CBC, ADIFF, GFR, BMP #### [address] [address] Lymphocyte, Absolute 1.0 10 3/mcL Normal 0.8-3.9 [facility] ([place]) Comment on above: Performed By: #### A MANJULA, CBC, ADIFF, GFR, BMP #### [address] [address] Lymphocytes/100 WBC (Bld) 13.1 % Normal 10.0-50.0 [facility] ([place] Comment on above: Performed By: #### A MANJULA, CBC, ADIFF, GFR, BMP #### [address] [address] Monocyte, Absolute 0.6 10 3/mcL Normal 0.2-1.0 [facility] ([place] Comment on above: Performed By: #### A MANJULA, CBC, ADIFF, GFR, BMP #### [address] [address] Monocytes/100 WBC (Bld) 8.7 % Normal 1.7-13.0 [facility] ([place] Comment on above: Performed By: #### A MANJULA, CBC, ADIFF, GFR, BMP #### [address] [address] Neutrophils/100 WBC (Bld) 76.7 % Normal 37.0-80.0 [facility] ([place] Comment on above: Performed By: #### A MANJULA, CBC, ADIFF, GFR, BMP #### [address] [address] .GFRon 01-31-2024 GFR 98 ml/min/1.73sqm Normal [facility] ([place] Comment on above: Result Comment: GFR Population mean for , Non- Americans Ages 20-29 = 116 mL/min/1.73 sq.m. Ages 30-39 = 107 mL/min/1.73 sq.m. Ages 40-49 = 99 mL/min/1.73 sq.m. Ages 50-59 = 93 mL/min/1.73 sq.m. Ages 60-69 = 85 mL/min/1.73 sq.m. Ages 70+ = 75 mL/min/1.73 sq.m. Chronic Kidney Disease: Less than 60 mL/min/1.73 square meters End Stage Renal Disease: Less than 15 mL/min/1.73 square meters Performed By: #### A MANJULA, CBC, ADIFF, GFR, BMP #### [address] [address] GFR Non- 81 ml/min/1.73sqm Normal [facility] ([place] Comment on above: Result Comment: GFR Population mean for , Non- Americans Ages 20-29 = 116 mL/min/1.73 sq.m. Ages 30-39 = 107 mL/min/1.73 sq.m. Ages 40-49 = 99 mL/min/1.73 sq.m. Ages 50-59 = 93 mL/min/1.73 sq.m. Ages 60-69 = 85 mL/min/1.73 sq.m. Ages 70+ = 75 mL/min/1.73 sq.m. Chronic Kidney Disease: Less than 60 mL/min/1.73 square meters End Stage Renal Disease: Less than 15 mL/min/1.73 square meters Performed By: #### A MANJULA, CBC, ADIFF, GFR, BMP #### [address] [address] .NEUABSon 01-31-2024 Neutrophil, Absolute 5.9 10 3/mcL Normal 2.9-6.2 [facility] ([place] Comment on above: Performed By: #### A MANJULA, CBC, ADIFF, GFR, BMP #### [address] [address] BCIDon 01-31-2024 Acinetobacter camryn-baumanii complex Not detected Normal Not Detected [facility] ([place] Comment on above: Performed By: #### M ORPH, CBC, DIFF #### [place] [address] Bacteroides fragilis Not detected Normal Not Detected [facility] ([place] Comment on above: Performed By: #### M ORPH, CBC, DIFF #### [address] [address] BCID Comment See Comment Normal [facility] ([place] Comment on above: Result Comment: Anti microbial resistance can occur via multiple mechanisms. A Not Detected result for antimicrobial resistance gene(s) does not indicate antimicrobial susceptibility. Culture identification and susceptibility results to follow. If BCID panel was negative (Not Detected) for all targets, this does not exclude a blood stream infection. Our blood culture system detected growth. Culture identification and susceptibility testing (if appropriate) to follow. Performed By: #### M ORPH, CBC, DIFF #### [address] [address] Kasandra albicans Not detected Normal Not Detected [facility] ([place] Comment on above: Performed By: #### M ORPH, CBC, DIFF #### [facility] [address] [place] [address] Kasandra auris Not detected Normal Not Detected [facility] ([place]) Comment on above: Performed By: #### M ORPH, CBC, DIFF #### [facility] [address] [place] [address] Kasandra glabrata Not detected Normal Not Detected [facility] ([place] Comment on above: Performed By: #### M ORPH, CBC, DIFF #### [facility] [address] [place] [address] Kasandra krusei Not detected Normal Not Detected [facility] ([place] Comment on above: Performed By: #### M ORPH, CBC, DIFF #### [place] [address] Kasandra parapsilosis Not detected Normal Not Detected [facility] ([place] Comment on above: Performed By: #### M ORPH, CBC, DIFF #### [place] [address] Kasandra tropicalis Not detected Normal Not Detected [facility] ([place] Comment on above: Performed By: #### M ORPH, CBC, DIFF #### [place] [address] Cryptococcus neoformans-gattii Not detected Normal Not Detected [facility] ([place] Comment on above: Performed By: #### M ORPH, CBC, DIFF #### [place] [address] CTX-M (ESBL) Not Applicable Normal Not Detected [facility] ([place]) Comment on above: Performed By: #### M ORPH, CBC, DIFF #### [place] [address] E. Coli Not detected Normal Not Detected [facility] ([place]) Comment on above: Performed By: #### M ORPH, CBC, DIFF #### [place] [address] Enterobacter cloacae Complex Not detected Normal Not Detected [facility] ([place]) Comment on above: Performed By: #### M ORPH, CBC, DIFF #### [facility] [address] [place], [place] [address] Enterobacterales Not detected Normal Not Detected [facility] ([place]) Comment on above: Performed By: #### M ORPH, CBC, DIFF #### [facility] [address] [place] [phone] Enterococcus faecalis Detected Abnormal Not Detected [facility] ([place]) Comment on above: Performed By: #### M ORPH, CBC, DIFF #### [facility] [address] [place] [address] Enterococcus faecium Not detected Normal Not Detected [facility] ([place]) Comment on above: Performed By: #### M ORPH, CBC, DIFF #### [facility] [address] [place] [address] Haemophilus influenzae Not detected Normal Not Detected [facility] ([place]) Comment on above: Performed By: #### M ORPH, CBC, DIFF #### [facility] [address] [place] [address] IMP (Carbapenemase) Not Applicable Normal Not Detected [facility] ([place]) Comment on above: Performed By: #### M ORPH, CBC, DIFF #### [facility] [address] [place] [address] Klebsiella aerogenes Not detected Normal Not Detected [facility] ([place] Comment on above: Performed By: #### M ORPH, CBC, DIFF #### [facility] [address] [place] [address] Klebsiella oxytoca Not detected Normal Not Detected [facility] ([place] Comment on above: Performed By: #### M ORPH, CBC, DIFF #### [facility] [address] [place] [address]307 Klebsiella pneumoniae group Not detected Normal Not Detected [facility] ([place] Comment on above: Performed By: #### M ORPH, CBC, DIFF #### [facility] [address] [place] [address] KPC (Carbapenemase) Not Applicable Normal Not Detected [facility] ([place]) Comment on above: Performed By: #### M ORPH, CBC, DIFF #### [facility] [address] [place] [address]175 Listeria monocytogenes Not detected Normal Not Detected [facility] ([place] Comment on above: Performed By: #### M ORPH, CBC, DIFF #### [facility] [address] [place] [address] MCR-1 (Colistin Resistance) Not Applicable Normal Not Detected [facility] ([place] Comment on above: Performed By: #### M ORPH, CBC, DIFF #### [facility] [address] [place] [address] Mec A/C Not Applicable Normal Not Detected [facility] [place] Comment on above: Performed By: #### M ORPH, CBC, DIFF #### [facility] [address] [place] [address] Mec A/C-MREJ (MRSA) Not Applicable Normal Not Detected [facility] ([place] Comment on above: Performed By: #### M ORPH, CBC, DIFF #### [address] [address] NDM (Carbapenemase) Not Applicable Normal Not Detected [facility] [place] Comment on above: Performed By: #### M ORPH, CBC, DIFF #### [place] [address] Neisseria meningitidis (Encapsalated) Not detected Normal Not Detected [facility] ([place] Comment on above: Performed By: #### M ORPH, CBC, DIFF #### [place] [address] OXA-48 like (Carbapenemase) Not Applicable Normal Not Detected [facility] ([place] Comment on above: Performed By: #### M ORPH, CBC, DIFF #### [place] [address] Proteus Not detected Normal Not Detected [facility] ([place] Comment on above: Performed By: #### M ORPH, CBC, DIFF #### [facility] [address] [place] [address] Pseudomonas aeruginosa Not detected Normal Not Detected [facility] ([place] Comment on above: Performed By: #### M ORPH, CBC, DIFF #### [facility] [address] [place] [address] S. agalactiae Org specific cx Ql (Vag fld) Not detected Normal Not Detected [facility] ([place] Comment on above: Performed By: #### M ORPH, CBC, DIFF #### [facility] [address] [place] [address] Salmonella species Not detected Normal Not Detected [facility] ([place] Comment on above: Performed By: #### M ORPH, CBC, DIFF #### [facility] [address] [place] [address] Serratia marcescens Not detected Normal Not Detected [facility] ([place] Comment on above: Performed By: #### M ORPH, CBC, DIFF #### [facility] [address] [place] [address] Staphylococcus Not detected Normal Not Detected [facility] ([place] Comment on above: Performed By: #### M ORPH, CBC, DIFF #### [facility] [address] [place] [address] Staphylococcus aureus Not detected Normal Not Detected [facility] ([place]) Comment on above: Result Comment: If S taphylococcus aureus is Detected, an Infectious Disease physician consult is required on identification. Performed By: #### M ORPH, CBC, DIFF #### [facility] [address] [place] [address] Staphylococcus epidermidis Not detected Normal Not Detected [facility] ([place] Comment on above: Performed By: #### M ORPH, CBC, DIFF #### [facility] [address] [place] [address] Staphylococcus lugdunensis Not detected Normal Not Detected [facility] ([place] Comment on above: Performed By: #### M ORPH, CBC, DIFF #### [facility] [address] [place] [address] Stenotrophomonas maltophilia Not detected Normal Not Detected [facility] ([place] Comment on above: Performed By: #### M ORPH, CBC, DIFF #### [facility] [address] [place] [address] Streptococcus Not detected Normal Not Detected [facility] ([place] Comment on above: Performed By: #### M ORPH, CBC, DIFF #### [facility] [address] [place] [address] 23797 Streptococcus pneumoniae Not detected Normal Not Detected [facility] [place] Comment on above: Performed By: #### M ORPH, CBC, DIFF #### [address] [address] Streptococcus pyogenes Not detected Normal Not Detected [facility] [place] Comment on above: Performed By: #### M ORPH, CBC, DIFF #### [address] [address] Van A/B Not detected Normal Not Detected [facility] ([place] Comment on above: Performed By: #### M ORPH, CBC, DIFF #### [place] [address] VIM (Carbapenemase) Not Applicable Normal Not Detected [facility] ([place] Comment on above: Performed By: #### M ORPH, CBC, DIFF #### [place] [address] CBCon 01-31-2024 Erythrocyte distribution width (RBC) [Ratio] 14.5 % Normal 11.5-14.5 [facility] ([place] Comment on above: Performed By: #### A MANJULA, CBC, ADIFF, GFR, BMP #### [place] [phone] Hematocrit (Bld) [Volume fraction] 30.6 % Low 37.0-47.0 [facility] ([place] Comment on above: Performed By: #### A MANJULA, CBC, ADIFF, GFR, BMP #### [place] [phone] Hgb 9.9 G/dL Low 12.0-16.0 [facility] ([place] Comment on above: Performed By: #### A MANJULA, CBC, ADIFF, GFR, BMP #### [place] [phone] MCH (RBC) [Entitic mass] 30.6 pg Normal 27.0-31.2 [facility] ([place] Comment on above: Performed By: #### A MANJULA, CBC, ADIFF, GFR, BMP #### [place] [phone] MCHC 32.6 G/dL Low 33.0-37.0 [facility] ([place] Comment on above: Performed By: #### A MANJULA, CBC, ADIFF, GFR, BMP #### [address] [address] MCV (RBC) [Entitic vol] 93.6 fL Normal 80.0-94.0 [facility] ([place] Comment on above: Performed By: #### A MANJULA, CBC, ADIFF, GFR, BMP #### [address] [address] Platelet 229 10 3/mcL Normal 130-400 [facility] ([place] Comment on above: Performed By: #### A MANJULA, CBC, ADIFF, GFR, BMP #### [address] [address] Platelet mean volume (Bld) [Entitic vol] 7.6 fL Normal 7.4-10.4 [facility] ([place] Comment on above: Performed By: #### A MANJULA, CBC, ADIFF, GFR, BMP #### [address] [address] RBC 3.27 10 6/mcL Low 4.20-5.40 [facility] ([place] Comment on above: Performed By: #### A MANJULA, CBC, ADIFF, GFR, BMP #### [address] [address] WBC 7.6 10 3/mcL Normal 4.6-10.8 [facility] ([place] Comment on above: Performed By: #### A MANJULA, CBC, ADIFF, GFR, BMP #### [address] [address] CMPon 01-31-2024 Albumin Level 2.4 G/dL Low 3.4-4.8 [facility] ([place] Comment on above: Performed By: #### A MANJULA, CBC, ADIFF, GFR, BMP #### [address] [address] Albumin/Globulin [Mass ratio] 0.6 {ratio} Low 1.1-2.5 [facility] ([place] Comment on above: Performed By: #### A MANJULA, CBC, ADIFF, GFR, BMP #### [address] [address] ALP [Catalytic activity/Vol] 88 U/L Normal 40-135 [facility] ([place] Comment on above: Performed By: #### A MANJULA, CBC, ADIFF, GFR, BMP #### [address] [address] ALT [Catalytic activity/Vol] 36 U/L Normal 14-59 [facility] ([place] Comment on above: Performed By: #### A MANJULA, CBC, ADIFF, GFR, BMP #### [address] [address] AST [Catalytic activity/Vol] 24 U/L Normal 10-40 [facility] ([place] Comment on above: Performed By: #### A MANJULA, CBC, ADIFF, GFR, BMP #### [address] [address] Bili Total 0.6 mg/dL Normal 0.2-1.0 [facility] ([place] Comment on above: Result Comment: Use of this assay is not recommended for patients undergoing treatment with eltrombopag due to the potential for falsely elevated results. Performed By: #### A MANJULA, CBC, ADIFF, GFR, BMP #### [address] [address] BUN/Creatinine Ratio 17 ratio Normal 7-27 [facility] ([place]) Comment on above: Performed By: #### A MANJULA, CBC, ADIFF, GFR, BMP #### [address] [address] Calcium [Mass/Vol] 8.2 mg/dL Low 8.4-10.2 [facility] ([place] Comment on above: Performed By: #### A MANJULA, CBC, ADIFF, GFR, BMP #### [address] [address] Chloride [Moles/Vol] 103 mmol/L Normal 98-107 [facility] ([place] Comment on above: Performed By: #### A MANJULA, CBC, ADIFF, GFR, BMP #### [address] [address] CO2 [Moles/Vol] 31 mmol/L Normal 23-31 [facility] ([place] Comment on above: Performed By: #### A MANJULA, CBC, ADIFF, GFR, BMP #### [address] [address] Creatinine [Mass/Vol] 0.69 mg/dL Normal 0.55-1.02 [facility] ([place] Comment on above: Performed By: #### A MANJULA, CBC, ADIFF, GFR, BMP #### [address] [address] Electrolyte Balance 6.0 mEq/L Normal 4.0-15.0 [facility] ([place] Comment on above: Performed By: #### A MANJULA, CBC, ADIFF, GFR, BMP #### [address] [address] Globulin 4.1 G/dL Normal [facility] ([place] Comment on above: Performed By: #### A MANJULA, CBC, ADIFF, GFR, BMP #### [address] [address] Glucose [Mass/Vol] 112 mg/dL High 83-110 [facility] ([place] Comment on above: Performed By: #### A MANJULA, CBC, ADIFF, GFR, BMP #### [address] [address] Potassium [Moles/Vol] 4.3 mmol/L Normal 3.5-5.1 [facility] ([place] Comment on above: Performed By: #### A MANJULA, CBC, ADIFF, GFR, BMP #### [address] [address] Sodium [Moles/Vol] 140 mmol/L Normal 136-145 [facility] ([place] Comment on above: Performed By: #### A MANJULA, CBC, ADIFF, GFR, BMP #### [address] [address] Total Protein 6.5 G/dL Normal 6.4-8.2 [facility] ([place] Comment on above: Performed By: #### A MANJULA, CBC, ADIFF, GFR, BMP #### [place] [address] Urea nitrogen [Mass/Vol] 12 mg/dL Normal 7-18 [facility] Comment on above: Performed By: #### A MANJULA, CBC, ADIFF, GFR, BMP #### [place] [address] CVFLURVon 01-31-2024 FLU A PCR Negative Normal Negative [facility] Comment on above: Performed By: #### A MANJULA, CBC, ADIFF, GFR, BMP #### [place] [address] FLU B PCR Negative Normal Negative [facility] Comment on above: Performed By: #### A MANJULA, CBC, ADIFF, GFR, BMP #### [place] [address] RSV PCR Negative Normal Negative [facility] Comment on above: Performed By: #### A MANJULA, CBC, ADIFF, GFR, BMP #### [place] [address] SARS-CoV-2 (COVID-19) RNA FAUSTO+probe Ql (Unsp spec) Negative Normal Negative [facility] Comment on above: Result Comment: Resu lts from the Xpert Xpress CoV-2/Flu/RSV plus test should be correlated with the clinical history, epidemiological data, and other data available to the clinical evaluating the patient. Performance of the Xpert Xpress CoV-2/Flu/RSV plus test has only been established in nasopharyngeal swab specimen. Erroneous test results might occur from improper specimen collection, failure to follow the recommended sample collection, handling and storage procedures, technical error, or sample mix-up. False negative results may occur if a virus is present at a level below the analytical limit of detection. Viral nucleic acid may persist in vivo, independent of virus viability. Detection of analyte target(s) does not imply that the corresponding virus(es) are infectious or are the causative agents for clinical symptoms. Recent patient exposure to FluMist or other live attenuated influenza vaccines may cause inaccurate positive results. Performed By: #### A MANJULA, CBC, ADIFF, GFR, BMP #### [facility] [place] [id number] LABORATORYOrdered By: SYSTEM SYSTEM on 01-31-2024 Albumin BCP dye [Mass/Vol] 2.4 G/dL Low 3.4 - 4.8 G/dL AO ADM SS Albumin/Globulin [Mass ratio] 0.6 {ratio} Low 1.1 - 2.5 ratio AO ADM SS ALP [Catalytic activity/Vol] 88 U/L Normal 40 - 135 U/L AO ADM SS ALT With P-5'-P [Catalytic activity/Vol] 36 U/L Normal 14 - 59 U/L AO ADM SS AST With P-5'-P [Catalytic activity/Vol] 24 U/L Normal 10 - 40 U/L AO ADM SS Basophil, Absolute 0.0 103/mcL Normal 0.0 - 0.2 10^3/mcL AO Workflow SS Basophils/100 WBC (Bld) 0.3 % Normal 0.0 - 2.5 % AO Workflow SS Bilirubin [Mass/Vol] 0.6 mg/dL Normal 0.2 - 1 .0 mg/dL AO ADM SS Comment on above: Interpretive Data: U se of this assay is not recommended for patients undergoing treatment with eltrombopag due to the potential for falsely elevated results. Calcium [Mass/Vol] 8.2 mg/dL Low 8.4 - 10. 2 mg/dL AO ADM SS Chloride [Moles/Vol] 103 mmol/L Normal 98 - 10 7 mmol/L AO ADM SS CO2 [Moles/Vol] 31 mmol/L Normal 23 - 31 mmol/L AO ADM SS Creatinine [Mass/Vol] 0.69 mg/dL Normal 0.55 - 1.02 mg/dL AO ADM SS Electrolyte Balance 6.0 mEq/L Normal 4.0 - 15 .0 mEq/L AO ADM SS Eosinophil, Absolute 0.0 103/mcL Normal 0.0 - 0 .4 10^3/mcL AO Workflow SS Eosinophils/100 WBC (Bld) 1.0 % Normal 0.0 - 7.0 % AO Workflow SS Erythrocyte distribution width (RBC) [Ratio] 14.5 % Normal 11.5 - 14.5 % AO Workflow SS GFR/1.73 sq M.predicted among blacks MDRD (S/P/Bld) [Vol rate/Area] 98 ml/min/1.73sqm Invalid Interpretation Code AO Chemistry S Comment on above: Interpretive Data: GFR Population mean for , Non- Americans Ages 20-29 = 116 mL/min/1.73 sq.m. Ages 30-39 = 107 mL/min/1.73 sq.m. Ages 40-49 = 99 mL/min/1.73 sq.m. Ages 50-59 = 93 mL/min/1.73 sq.m. Ages 60-69 = 85 mL/min/1.73 sq.m. Ages 70+ = 75 mL/min/1.73 sq.m. Chronic Kidney Disease: Less than 60 mL/min/1.73 square meters End Stage Renal Disease: Less than 15 mL/min/1.73 square meters GFR/1.73 sq M.predicted among non-blacks MDRD (S/P/Bld) [Vol rate/Area] 81 ml/min/1.73sqm Invalid Interpretation Code AO Chemistry S Comment on above: Interpretive Data: GFR Population mean for , Non- Americans Ages 20-29 = 116 mL/min/1.73 sq.m. Ages 30-39 = 107 mL/min/1.73 sq.m. Ages 40-49 = 99 mL/min/1.73 sq.m. Ages 50-59 = 93 mL/min/1.73 sq.m. Ages 60-69 = 85 mL/min/1.73 sq.m. Ages 70+ = 75 mL/min/1.73 sq.m. Chronic Kidney Disease: Less than 60 mL/min/1.73 square meters End Stage Renal Disease: Less than 15 mL/min/1.73 square meters Globulin 4.1 G/dL Invalid Interpretation Code AO ADM SS Glucose [Mass/Vol] 112 mg/dL High 83 - 110 mg/dL AO ADM SS Hematocrit (Bld) [Volume fraction] 30.6 % Low 37.0 - 47.0 % AO Workflow SS Hemoglobin (Bld) [Mass/Vol] 9.9 G/dL Low 12.0 - 16.0 G/dL AO Workflow SS Lactate [Moles/Vol] 1.3 mmol/L Normal 0.4 - 2. 0 mmol/L AO ADM SS Lymphocyte, Absolute 1.0 103/mcL Normal 0.8 - 3 .9 10^3/mcL AO Workflow SS Lymphocytes/100 WBC (Bld) 13.1 % Normal 10.0 - 50.0 % AO Workflow SS MCH (RBC) [Entitic mass] 30.6 pg Normal 27.0 - 31.2 pg AO Workflow SS MCHC 32.6 G/dL Low 33.0 - 37.0 G/dL AO Workflow SS MCV (RBC) [Entitic vol] 93.6 fL Normal 80.0 - 94.0 fL AO Workflow SS Monocyte, Absolute 0.6 103/mcL Normal 0.2 - 1.0 10^3/mcL AO Workflow SS Monocytes/100 WBC (Bld) 8.7 % Normal 1.7 - 13.0 % AO Workflow SS Neutrophil, Absolute 5.9 103/mcL Normal 2.9 - 6 .2 10^3/mcL AO Workflow SS Neutrophils/100 WBC (Bld) 76.7 % Normal 37.0 - 80.0 % AO Workflow SS Platelet mean volume (Bld) [Entitic vol] 7.6 fL Normal 7.4 - 10.4 fL AO Workflow SS Platelets (Bld) [#/Vol] 229 103/mcL Normal 130 - 400 10^3/mcL AO Workflow SS Potassium [Moles/Vol] 4.3 mmol/L Normal 3.5 - 5.1 mmol/L AO ADM SS Protein [Mass/Vol] 6.5 G/dL Normal 6.4 - 8.2 G/dL AO ADM SS RBC (Bld) [#/Vol] 3.27 106/mcL Low 4.20 - 5.40 10^6/mcL AO Workflow SS Sodium [Moles/Vol] 140 mmol/L Normal 136 - 145 mmol/L AO ADM SS Urea nitrogen [Mass/Vol] 12 mg/dL Normal 7 - 18 mg/dL AO ADM SS Urea nitrogen/Creatinine [Mass ratio] 17 ratio Normal 7 - 27 ratio AO ADM SS WBC (Bld) [#/Vol] 7.6 103/mcL Normal 4.6 - 10.8 10^3/[facility] Workflow SS LABORATORYOrdered By: Kavin Chao on 01-31-2024 ACINETOBACTER CALCOACETICUS-BAUMANNI I COMPLEX DNA:PRTHR:PT:BLD.POS GROWTH:ORD:NON-PROBE.A MP.TAR Not Detected *NA* (01/31/24 1:15 AM) Invalid Interpretation Code Not Detected [facility] GL SS BACTERIAL METHICILLIN RESISTANCE MECA+MECC GENES+SCCMEC+ORFX JUNCTION:PRTHR:PT:ISOL ATE/SPECIMEN:ORD:MOLGE N Not Applicable *NA* (01/31/24 1:15 AM) Invalid Interpretation Code Not Detected [facility] GL SS BACTEROIDES FRAGILIS DNA:PRTHR:PT:BLD.POS GROWTH:ORD:NON-PROBE.A MP.TAR Not Detected *NA* (01/31/24 1:15 AM) Invalid Interpretation Code Not Detected [facility] GL SS BCID Comment See Comment 1 (01/31/24 1:15 AM) Normal [facility] GL SS Comment on above: Interpretive Data: A ntimicrobial resistance can occur via multiple mechanisms. A Not Detected result for antimicrobial resistance gene(s) does not indicate antimicrobial susceptibility. Culture identification and susceptibility results to follow. If BCID panel was negative (Not Detected) for all targets, this does not exclude a blood stream infection. Our blood culture system detected growth. Culture identification and susceptibility testing (if appropriate) to follow. C. albicans DNA FAUSTO+non-probe Ql (Pos bld culture) Not Detected *NA* (01/31/24 1:15 AM) Invalid Interpretation Code Not Detected [facility] GL SS C. glabrata DNA FAUSTO+non-probe Ql (Pos bld culture) Not Detected *NA* (01/31/24 1:15 AM) Invalid Interpretation Code Not Detected [facility] GL SS C. krusei DNA FAUSTO+non-probe Ql (Pos bld culture) Not Detected *NA* (01/31/24 1:15 AM) Invalid Interpretation Code Not Detected [facility] GL SS C. parapsilosis DNA FAUSTO+non-probe Ql (Pos bld culture) Not Detected *NA* (01/31/24 1:15 AM) Invalid Interpretation Code Not Detected [facility] GL SS C. tropicalis DNA FAUSTO+non-probe Ql (Pos bld culture) Not Detected *NA* (01/31/24 1:15 AM) Invalid Interpretation Code Not Detected [facility] GL SS KASANDRA AURIS DNA:PRTHR:PT:BLD.POS GROWTH:ORD:NON-PROBE.A MP.TAR Not Detected *NA* (01/31/24 1:15 AM) Invalid Interpretation Code Not Detected [facility] GL SS Carbapenem resistance annel OXA-48-like gene Molgen Ql (Islt/Spec) Not Applicable *NA* (01/31/24 1:15 AM) Invalid Interpretation Code Not Detected [facility] GL SS Carbapenem resistance blaIMP gene Molgen Ql (Islt/Spec) Not Applicable *NA* (01/31/24 1:15 AM) Invalid Interpretation Code Not Detected [facility] GL SS Carbapenem resistance blaKPC gene Molgen Ql (Islt/Spec) Not Applicable *NA* (01/31/24 1:15 AM) Invalid Interpretation Code Not Detected [facility] GL SS Carbapenem resistance blaNDM gene Molgen Ql (Islt/Spec) Not Applicable *NA* (01/31/24 1:15 AM) Invalid Interpretation Code Not Detected [facility] GL SS Carbapenem resistance blaVIM gene Molgen Ql (Islt/Spec) Not Applicable *NA* (01/31/24 1:15 AM) Invalid Interpretation Code Not Detected [facility] GL SS Cephalosporin resistance annel(CTX-M) gene Molgen Ql (Islt/Spec) Not Applicable *NA* (01/31/24 1:15 AM) Invalid Interpretation Code Not Detected [facility] GL SS Colistin resistance mcr-1 gene Molgen Ql (Islt/Spec) Not Applicable *NA* (01/31/24 1:15 AM) Invalid Interpretation Code Not Detected [facility] GL SS CRYPTOCOCCUS GATTII+NEOFORMANS DNA:PRTHR:PT:BLD.POS GROWTH:ORD:NON-PROBE.A MP.TAR Not Detected *NA* (01/31/24 1:15 AM) Invalid Interpretation Code Not Detected [facility] GL SS E. cloacae complex DNA FAUSTO+non-probe Ql (Pos bld culture) Not Detected *NA* (01/31/24 1:15 AM) Invalid Interpretation Code Not Detected [facility] GL SS E. coli DNA FAUSTO+non-probe Ql (Pos bld culture) Not Detected *NA* (01/31/24 1:15 AM) Invalid Interpretation Code Not Detected [facility] GL SS ENTEROBACTERALES DNA:PRTHR:PT:BLD.POS GROWTH:ORD:NON-PROBE.A MP.TAR Not Detected *NA* (01/31/24 1:15 AM) Invalid Interpretation Code Not Detected [facility] GL SS ENTEROCOCCUS FAECALIS DNA:PRTHR:PT:BLD.POS GROWTH:ORD:NON-PROBE.A MP.TAR Detected *ABN* (01/31/24 1:15 AM) Invalid Interpretation Code Not Detected [facility] GL SS ENTEROCOCCUS FAECIUM DNA:PRTHR:PT:BLD.POS GROWTH:ORD:NON-PROBE.A MP.TAR Not Detected *NA* (01/31/24 1:15 AM) Invalid Interpretation Code Not Detected [facility] GL SS H. influenzae DNA FAUSTO+non-probe Ql (Pos bld culture) Not Detected *NA* (01/31/24 1:15 AM) Invalid Interpretation Code Not Detected [facility] GL SS K. oxytoca DNA FAUSTO+non-probe Ql (Pos bld culture) Not Detected *NA* (01/31/24 1:15 AM) Invalid Interpretation Code Not Detected [facility] GL SS KLEBSIELLA AEROGENES DNA:PRTHR:PT:BLD.POS GROWTH:ORD:NON-PROBE.A MP.TAR Not Detected *NA* (01/31/24 1:15 AM) Invalid Interpretation Code Not Detected [facility] GL SS KLEBSIELLA PNEUMONIAE+KLEBSIELLA VARIICOLA+KLEBSIELLA QUASIPNEUMONIAE DNA:PRTHR:PT:BLD.POS GROWTH:ORD:NON-PROBE.A MP.TAR Not Detected *NA* (01/31/24 1:15 AM) Invalid Interpretation Code Not Detected [facility] GL SS L. monocytogenes DNA FAUSTO+non-probe Ql (Pos bld culture) Not Detected *NA* (01/31/24 1:15 AM) Invalid Interpretation Code Not Detected [facility] GL SS Methicillin resistance mecA+mecC genes Molgen Ql (Islt/Spec) Not Applicable *NA* (01/31/24 1:15 AM) Invalid Interpretation Code Not Detected [facility] GL SS N. meningitidis DNA FAUSTO+non-probe Ql (Pos bld culture) Not Detected *NA* (01/31/24 1:15 AM) Invalid Interpretation Code Not Detected AH Auto Microbiology GL SS P. aeruginosa DNA FAUSTO+non-probe Ql (Pos bld culture) Not Detected *NA* (01/31/24 1:15 AM) Invalid Interpretation Code Not Detected AH Auto Microbiology GL SS Proteus sp DNA FAUSTO+non-probe Ql (Pos bld culture) Not Detected *NA* (01/31/24 1:15 AM) Invalid Interpretation Code Not Detected AH Auto Microbiology GL SS S. agalactiae DNA FAUSTO+non-probe Ql (Pos bld culture) Not Detected *NA* (01/31/24 1:15 AM) Invalid Interpretation Code Not Detected AH Auto Microbiology GL SS S. aureus DNA FAUSTO+non-probe Ql (Pos bld culture) Not Detected 2 *NA* (01/31/24 1:15 AM) Invalid Interpretation Code Not Detected AH Auto Microbiology GL SS Comment on above: Interpretive Data: I f Staphylococcus aureus is Detected, an Infectious Disease physician consult is required on identification. S. marcescens DNA FAUSTO+non-probe Ql (Pos bld culture) Not Detected *NA* (01/31/24 1:15 AM) Invalid Interpretation Code Not Detected AH Auto Microbiology GL SS S. pneumoniae DNA FAUSTO+non-probe Ql (Pos bld culture) Not Detected *NA* (01/31/24 1:15 AM) Invalid Interpretation Code Not Detected AH Auto Microbiology GL SS S. pyogenes DNA FAUSTO+non-probe Ql (Pos bld culture) Not Detected *NA* (01/31/24 1:15 AM) Invalid Interpretation Code Not Detected AH Auto Microbiology GL SS SALMONELLA SP DNA:PRTHR:PT:BLD.POS GROWTH:ORD:NON-PROBE.A MP.TAR Not Detected *NA* (01/31/24 1:15 AM) Invalid Interpretation Code Not Detected AH Auto Microbiology GL SS STAPHYLOCOCCUS EPIDERMIDIS DNA:PRTHR:PT:BLD.POS GROWTH:ORD:NON-PROBE.A MP.TAR Not Detected *NA* (01/31/24 1:15 AM) Invalid Interpretation Code Not Detected AH Auto Microbiology GL SS STAPHYLOCOCCUS LUGDUNENSIS DNA:PRTHR:PT:BLD.POS GROWTH:ORD:NON-PROBE.A MP.TAR Not Detected *NA* (01/31/24 1:15 AM) Invalid Interpretation Code Not Detected AH Auto Microbiology GL SS Staphylococcus sp DNA FAUSTO+non-probe Ql (Pos bld culture) Not Detected *NA* (01/31/24 1:15 AM) Invalid Interpretation Code Not Detected AH Auto Microbiology GL SS STENOTROPHOMONAS MALTOPHILIA DNA:PRTHR:PT:BLD.POS GROWTH:ORD:NON-PROBE.A MP.TAR Not Detected *NA* (01/31/24 1:15 AM) Invalid Interpretation Code Not Detected AH Auto Microbiology GL SS Streptococcus sp DNA FAUSTO+non-probe Ql (Pos bld culture) Not Detected *NA* (01/31/24 1:15 AM) Invalid Interpretation Code Not Detected AH Auto Microbiology GL SS Vancomycin resistance Damon + vanB genes Molgen Ql (Islt/Spec) Not Detected *NA* (01/31/24 1:15 AM) Invalid Interpretation Code Not Detected AH Auto Microbiology GL SS LABORATORYOrdered By: Sue Patrick on 01-31-2024 FLUAV RNA FAUSTO+probe Ql (Resp) Negative (01/31/24 1:15 AM) Normal Negative AO Auto Urine SS FLUBV RNA FAUSTO+probe Ql (Resp) Negative (01/31/24 1:15 AM) Normal Negative AO Auto Urine SS RSV RNA FAUSTO+probe Ql (Resp) Negative (01/31/24 1:15 AM) Normal Negative AO Auto Urine SS SARS-CoV-2 (COVID-19) RNA FAUSTO+probe Ql (Resp) Negative 4 (01/31/24 1:15 AM) Normal Negative AO Auto Urine SS Comment on above: Interpretive Data: R esults from the Xpert Xpress CoV-2/Flu/RSV plus test should be correlated with the clinical history, epidemiological data, and other data available to the clinical evaluating the patient. Performance of the Xpert Xpress CoV-2/Flu/RSV plus test has only been established in nasopharyngeal swab specimen. Erroneous test results might occur from improper specimen collection, failure to follow the recommended sample collection, handling and storage procedures, technical error, or sample mix-up. False negative results may occur if a virus is present at a level below the analytical limit of detection. Viral nucleic acid may persist in vivo, independent of virus viability. Detection of analyte target(s) does not imply that the corresponding virus(es) are infectious or are the causative agents for clinical symptoms. Recent patient exposure to FluMist or other live attenuated influenza vaccines may cause inaccurate positive results. LACon 01-31-2024 Lactic Acid Lvl 1.3 mmol/L Normal 0.4-2.0 [facility] ([place] Comment on above: Performed By: #### A MANJULA, CBC, ADIFF, GFR, BMP #### [facility] [address] [place], [place] [address] No Panel Informationon 01-30 GSAER Gram Positive Cocci in pairs [facility] GSANA Gram Positive Cocci in pairs [facility] Microscopic examination of blood, culture Enterococcus faecalis Isolated from aerobe and anaerobe bottles. ASHLEIGH to follow [facility] Microscopic examination of blood, culture Enterococcus faecalis Isolated from aerobe and anaerobe bottles. Final report to follow. [facility] XR CHEST 2 VIEWSon XR CHEST 2 VIEWS ORIGINAL EXAMINATION: TWO XRAY VIEWS OF THE CHEST 01/31/2024 12:14 am COMPARISON: None. HISTORY: ORDERING SYSTEM PROVIDED HISTORY: Reason for Exam: fever FINDINGS: Study is degraded due to patient's neck positioning, low lung volumes, and body habitus. Mildly enlarged cardiomediastinal silhouette. No large pleural effusion or pneumothorax. No focal consolidation. Probable large hiatal hernia. Mid/lower lung predominant bronchovascular markings may relate to atelectasis from low lung volumes or acute infectious/inflammatory process. No acute osseous findings. Bilateral humeral head appear superiorly subluxed within the glenoid, suggest chronic rotator cuff tear. IMPRESSION: Study is degraded due to above patient related factors. Mid/lower lung predominant bronchovascular markings may relate to atelectasis from low lung volumes or acute infectious/inflammatory process. Recommend follow-up to resolution. I have personally reviewed the images of this examination and agree with the resident's findings and interpretation. Interpreted by: Diogo Gibbons Preliminary Report By: Horace Khalil Electronically signed By Diogo Gibbons Dictated Date: 01/31/2024 12:40:51 AM Prelim Date: 01/31/2024 12:45:40 AM Sign Date: 01/31/2024 12:50:22 AM Ordering Provider: MALGORZATA [facility] ([place] LABORATORYOrdered By: Beckie Alvarez on 01-30-2024 Appearance (U) Clear (01/30/24 6:15 PM) Normal Clear AO Auto Urine SS Bilirubin Ql (U) Negative (01/30/24 6:15 PM) Normal Negative AO Auto Urine SS Color (U) Yellow (01/30/24 6:15 PM) Normal AO Auto Urine SS Glucose Test strip (U) [Mass/Vol] Negative Normal Negative AO Auto Urine SS Hemoglobin Auto test strip (U) [Mass/Vol] Negative (01/30/24 6:15 PM) Normal Negative AO Auto Urine SS Ketones Ql (U) Negative Normal Negative AO Auto Ur ine SS UA Leuk Est Negative (01/30/24 6:15 PM) Normal Negative AO Auto Urine SS UA Nitrite Negative (01/30/24 6:15 PM) Normal Negative AO Auto Urine SS UA pH 7.0 (01/30/24 6:15 PM) Normal 5.0 - 8.0 AO Auto Urine SS UA Protein Negative Normal Negative AO Auto Urine SS UA Spec Grav 1.020 (01/30/24 6:15 PM) Normal 1.015-1.02 5 AO Auto Urine SS UA Specimen Type Straight Cath (01/30/24 6:15 PM) Normal AO Auto Urine SS UA Urobilinogen 2.0 E.U./dL Invalid Interpretation Code 0.2-1.0 AO Auto Urine SS UAon 01-30-2024 Color (U) Yellow Normal [facility] ([place] Comment on above: Performed By: #### A MANJULA, CBC, ADIFF, GFR, BMP #### [address] [address] Glucose (U) [Mass/Vol] Negative Normal Negative [facility] ([place] Comment on above: Performed By: #### A MANJULA, CBC, ADIFF, GFR, BMP #### [address] [address] Ketones Ql (U) Negative Normal Negative [facility] ([place] Comment on above: Performed By: #### A MANJULA, CBC, ADIFF, GFR, BMP #### [address] [address] UA Appear Clear Normal Clear [facility] ([place] Comment on above: Performed By: #### A MANJULA, CBC, ADIFF, GFR, BMP #### [address] [address] UA Blood Negative Normal Negative [facility] ([place] Comment on above: Performed By: #### A MANJULA, CBC, ADIFF, GFR, BMP #### [address] [address] UA Leuk Est Negative Normal Negative [facility] ([place] Comment on above: Performed By: #### A MANJULA, CBC, ADIFF, GFR, BMP #### [address] [address] UA Nitrite Negative Normal Negative [facility] ([place] Comment on above: Performed By: #### A MANJULA, CBC, ADIFF, GFR, BMP #### [address] [address] UA pH 7.0 Normal 5.0 - 8.0 [facility] ([place] Comment on above: Performed By: #### A MANJULA, CBC, ADIFF, GFR, BMP #### [address] [address] UA Protein Negative Normal Negative [facility] ([place] Comment on above: Performed By: #### A MANJULA, CBC, ADIFF, GFR, BMP #### [address] [address] UA Spec Grav 1.020 Normal 1.015-1.02 5 [facility] ([place] Comment on above: Performed By: #### A MANJULA, CBC, ADIFF, GFR, BMP #### [address] [address] UA Specimen Type Straight Cath Normal [facility] ([place] Comment on above: Performed By: #### A MANJULA, CBC, ADIFF, GFR, BMP #### [address] [address] UA Urobilinogen 2.0 E.U./dL Abnormal 0.2-1.0 [facility] ([place] Comment on above: Performed By: #### A MANJULA, CBC, ADIFF, GFR, BMP #### [address] [address] Urobilinogen (U) [Mass/Vol] Negative Normal Negative [facility] ([place] Comment on above: Performed By: #### A MANJULA, CBC, ADIFF, GFR, BMP #### [address] [address] .Auto Diffon 01-25-2024 Basophil, Absolute 0.0 10 3/mcL Normal 0.0-0.2 [facility] ([place] Comment on above: Performed By: #### A MANJULA, CBC, ADIFF, GFR, BMP #### [address] [address] Basophils/100 WBC (Bld) 0.9 % Normal 0.0-2.5 [facility] ([place] Comment on above: Performed By: #### A MANJULA, CBC, ADIFF, GFR, BMP #### [address] [address] Eosinophil, Absolute 0.0 10 3/mcL Normal 0.0-0.4 [facility] ([place] Comment on above: Performed By: #### A MANJULA, CBC, ADIFF, GFR, BMP #### [address] [address] Eosinophils/100 WBC (Bld) 0.5 % Normal 0.0-7.0 [facility] ([place] Comment on above: Performed By: #### A MANJULA, CBC, ADIFF, GFR, BMP #### [address] [address] Lymphocyte, Absolute 0.9 10 3/mcL Normal 0.8-3.9 [facility] ([place] Comment on above: Performed By: #### A MANJULA, CBC, ADIFF, GFR, BMP #### [address] [address] Lymphocytes/100 WBC (Bld) 16.2 % Normal 10.0-50.0 [facility] ([place] Comment on above: Performed By: #### A MANJULA, CBC, ADIFF, GFR, BMP #### [address] [address] Monocyte, Absolute 0.6 10 3/mcL Normal 0.2-1.0 [facility] ([place] Comment on above: Performed By: #### A MANJULA, CBC, ADIFF, GFR, BMP #### [address] [address] Monocytes/100 WBC (Bld) 11.9 % Normal 1.7-13.0 [facility] ([place] Comment on above: Performed By: #### A MANJULA, CBC, ADIFF, GFR, BMP #### [address] [address] Neutrophils/100 WBC (Bld) 70.5 % Normal 37.0-80.0 [facility] ([place] Comment on above: Performed By: #### A MANJULA, CBC, ADIFF, GFR, BMP #### [address] [address] .GFRon 01-25-2024 GFR 92 ml/min/1.73sqm Normal [facility] ([place] Comment on above: Result Comment: GFR Population mean for , Non- Americans Ages 20-29 = 116 mL/min/1.73 sq.m. Ages 30-39 = 107 mL/min/1.73 sq.m. Ages 40-49 = 99 mL/min/1.73 sq.m. Ages 50-59 = 93 mL/min/1.73 sq.m. Ages 60-69 = 85 mL/min/1.73 sq.m. Ages 70+ = 75 mL/min/1.73 sq.m. Chronic Kidney Disease: Less than 60 mL/min/1.73 square meters End Stage Renal Disease: Less than 15 mL/min/1.73 square meters Performed By: #### A MANJULA, CBC, ADIFF, GFR, BMP #### [address] [address] GFR Non- 76 ml/min/1.73sqm Normal [facility] ([place] Comment on above: Result Comment: GFR Population mean for , Non- Americans Ages 20-29 = 116 mL/min/1.73 sq.m. Ages 30-39 = 107 mL/min/1.73 sq.m. Ages 40-49 = 99 mL/min/1.73 sq.m. Ages 50-59 = 93 mL/min/1.73 sq.m. Ages 60-69 = 85 mL/min/1.73 sq.m. Ages 70+ = 75 mL/min/1.73 sq.m. Chronic Kidney Disease: Less than 60 mL/min/1.73 square meters End Stage Renal Disease: Less than 15 mL/min/1.73 square meters Performed By: #### A MANJULA, CBC, ADIFF, GFR, BMP #### [address] [address] .NEUABSon 01-25-2024 Neutrophil, Absolute 3.8 10 3/mcL Normal 2.9-6.2 [facility] ([place] Comment on above: Performed By: #### A MANJULA, CBC, ADIFF, GFR, BMP #### [address] [address] BMPon 01-25-2024 BUN/Creatinine Ratio 12 ratio Normal 7-27 [facility] ([place] Comment on above: Performed By: #### A MANJULA, CBC, ADIFF, GFR, BMP #### [address] [address] Calcium [Mass/Vol] 8.2 mg/dL Low 8.4-10.2 [facility] ([place] Comment on above: Performed By: #### A MANJULA, CBC, ADIFF, GFR, BMP #### [address] [address] Chloride [Moles/Vol] 100 mmol/L Normal 98-107 [facility] ([place] Comment on above: Performed By: #### A MANJULA, CBC, ADIFF, GFR, BMP #### [address] [address] CO2 [Moles/Vol] 29 mmol/L Normal 23-31 [facility] ([place] Comment on above: Performed By: #### A MANJULA, CBC, ADIFF, GFR, BMP #### [address] [address] Creatinine [Mass/Vol] 0.73 mg/dL Normal 0.55-1.02 [facility] ([place] Comment on above: Performed By: #### A MANJULA, CBC, ADIFF, GFR, BMP #### [address] [address] Electrolyte Balance 6.0 mEq/L Normal 4.0-15.0 [facility] ([place] Comment on above: Performed By: #### A MANJULA, CBC, ADIFF, GFR, BMP #### [address] [address] Glucose [Mass/Vol] 111 mg/dL High 83-110 [facility] ([place] Comment on above: Performed By: #### A MANJULA, CBC, ADIFF, GFR, BMP #### [address] [address] Potassium [Moles/Vol] 4.0 mmol/L Normal 3.5-5.1 [facility] ([place] Comment on above: Performed By: #### A MANJULA, CBC, ADIFF, GFR, BMP #### [place] [address] Sodium [Moles/Vol] 135 mmol/L Low 136-145 [facility] ([place] Comment on above: Performed By: #### A MANJULA, CBC, ADIFF, GFR, BMP #### [place] [id number] Urea nitrogen [Mass/Vol] 9 mg/dL Normal 7-18 [facility] ([place] Comment on above: Performed By: #### A MANJULA, CBC, ADIFF, GFR, BMP #### [address] [address] CBCon 01-25-2024 Erythrocyte distribution width (RBC) [Ratio] 15.5 % High 11.5-14.5 [facility] ([place] Comment on above: Performed By: #### A MANJULA, CBC, ADIFF, GFR, BMP #### [address] [address] Hematocrit (Bld) [Volume fraction] 31.8 % Low 37.0-47.0 [facility] ([place] Comment on above: Performed By: #### A MANJULA, CBC, ADIFF, GFR, BMP #### [place] [address] [place], [place] [address] Hgb 10.3 G/dL Low 12.0-16.0 [facility] ([place] Comment on above: Performed By: #### A MANJULA, CBC, ADIFF, GFR, BMP #### [address] [address] MCH (RBC) [Entitic mass] 30.5 pg Normal 27.0-31.2 [facility] ([place] Comment on above: Performed By: #### A MANJULA, CBC, ADIFF, GFR, BMP #### [address] [address] MCHC 32.4 G/dL Low 33.0-37.0 [facility] ([place] Comment on above: Performed By: #### A MANJULA, CBC, ADIFF, GFR, BMP #### [address] [address] MCV (RBC) [Entitic vol] 94.1 fL High 80.0-94.0 [facility] ([place] Comment on above: Performed By: #### A MANJULA, CBC, ADIFF, GFR, BMP #### [address] [address] Platelet 255 10 3/mcL Normal 130-400 [facility] ([place] Comment on above: Performed By: #### A MANJULA, CBC, ADIFF, GFR, BMP #### [address] [address] Platelet mean volume (Bld) [Entitic vol] 7.6 fL Normal 7.4-10.4 [facility] ([place] Comment on above: Performed By: #### A MANJULA, CBC, ADIFF, GFR, BMP #### [address] [address] RBC 3.38 10 6/mcL Low 4.20-5.40 [facility] ([place] Comment on above: Performed By: #### A MANJULA, CBC, ADIFF, GFR, BMP #### [place] [address] [place], [place] [address] WBC 5.4 10 3/mcL Normal 4.6-10.8 [facility] ([place] Comment on above: Performed By: #### A MANJULA, CBC, ADIFF, GFR, BMP #### [place] [address] [place], [place] [address] LABORATORYOrdered By: SYSTEM SYSTEM on 01-25-2024 Basophil, Absolute 0.0 103/mcL Normal 0.0 - 0.2 10^3/mcL AO Workflow SS Basophils/100 WBC (Bld) 0.9 % Normal 0.0 - 2.5 % AO Workflow SS Calcium [Mass/Vol] 8.2 mg/dL Low 8.4 - 10. 2 mg/dL AO ADM SS Chloride [Moles/Vol] 100 mmol/L Normal 98 - 10 7 mmol/L AO ADM SS CO2 [Moles/Vol] 29 mmol/L Normal 23 - 31 mmol/L AO ADM SS Creatinine [Mass/Vol] 0.73 mg/dL Normal 0.55 - 1.02 mg/dL AO ADM SS Electrolyte Balance 6.0 mEq/L Normal 4.0 - 15 .0 mEq/L AO ADM SS Eosinophil, Absolute 0.0 103/mcL Normal 0.0 - 0 .4 10^3/mcL AO Workflow SS Eosinophils/100 WBC (Bld) 0.5 % Normal 0.0 - 7.0 % AO Workflow SS Erythrocyte distribution width (RBC) [Ratio] 15.5 % High 11.5 - 14.5 % AO Workflow SS GFR/1.73 sq M.predicted among blacks MDRD (S/P/Bld) [Vol rate/Area] 92 ml/min/1.73sqm Invalid Interpretation Code AO Chemistry S Comment on above: Interpretive Data: GFR Population mean for , Non- Americans Ages 20-29 = 116 mL/min/1.73 sq.m. Ages 30-39 = 107 mL/min/1.73 sq.m. Ages 40-49 = 99 mL/min/1.73 sq.m. Ages 50-59 = 93 mL/min/1.73 sq.m. Ages 60-69 = 85 mL/min/1.73 sq.m. Ages 70+ = 75 mL/min/1.73 sq.m. Chronic Kidney Disease: Less than 60 mL/min/1.73 square meters End Stage Renal Disease: Less than 15 mL/min/1.73 square meters GFR/1.73 sq M.predicted among non-blacks MDRD (S/P/Bld) [Vol rate/Area] 76 ml/min/1.73sqm Invalid Interpretation Code AO Chemistry S Comment on above: Interpretive Data: GFR Population mean for , Non- Americans Ages 20-29 = 116 mL/min/1.73 sq.m. Ages 30-39 = 107 mL/min/1.73 sq.m. Ages 40-49 = 99 mL/min/1.73 sq.m. Ages 50-59 = 93 mL/min/1.73 sq.m. Ages 60-69 = 85 mL/min/1.73 sq.m. Ages 70+ = 75 mL/min/1.73 sq.m. Chronic Kidney Disease: Less than 60 mL/min/1.73 square meters End Stage Renal Disease: Less than 15 mL/min/1.73 square meters Glucose [Mass/Vol] 111 mg/dL High 83 - 110 mg/dL AO ADM SS Hematocrit (Bld) [Volume fraction] 31.8 % Low 37.0 - 47.0 % AO Workflow SS Hemoglobin (Bld) [Mass/Vol] 10.3 G/dL Low 12.0 - 16.0 G/dL AO Workflow SS Lymphocyte, Absolute 0.9 103/mcL Normal 0.8 - 3 .9 10^3/mcL AO Workflow SS Lymphocytes/100 WBC (Bld) 16.2 % Normal 10.0 - 50.0 % AO Workflow SS MCH (RBC) [Entitic mass] 30.5 pg Normal 27.0 - 31.2 pg AO Workflow SS MCHC 32.4 G/dL Low 33.0 - 37.0 G/dL AO Workflow SS MCV (RBC) [Entitic vol] 94.1 fL High 80.0 - 94.0 fL AO Workflow SS Monocyte, Absolute 0.6 103/mcL Normal 0.2 - 1.0 10^3/mcL AO Workflow SS Monocytes/100 WBC (Bld) 11.9 % Normal 1.7 - 13.0 % AO Workflow SS Neutrophil, Absolute 3.8 103/mcL Normal 2.9 - 6 .2 10^3/mcL AO Workflow SS Neutrophils/100 WBC (Bld) 70.5 % Normal 37.0 - 80.0 % AO Workflow SS Platelet mean volume (Bld) [Entitic vol] 7.6 fL Normal 7.4 - 10.4 fL AO Workflow SS Platelets (Bld) [#/Vol] 255 103/mcL Normal 130 - 400 10^3/mcL AO Workflow SS Potassium [Moles/Vol] 4.0 mmol/L Normal 3.5 - 5.1 mmol/L AO ADM SS RBC (Bld) [#/Vol] 3.38 106/mcL Low 4.20 - 5.40 10^6/mcL AO Workflow SS Sodium [Moles/Vol] 135 mmol/L Low 136 - 145 mmol/L AO ADM SS Urea nitrogen [Mass/Vol] 9 mg/dL Normal 7 - 18 mg/dL AO ADM SS Urea nitrogen/Creatinine [Mass ratio] 12 ratio Normal 7 - 27 ratio AO ADM SS WBC (Bld) [#/Vol] 5.4 103/mcL Normal 4.6 - 10.8 10^3/mcL AO Workflow SS Urine Cultureon 01-23-2024 [facility] Anaerobic non-spore forming gram positive rods are usually SUSCEPTIBLE to Beta-lactams and Beta-lactamase inhibitors, Linezolid, and Daptomycin. They are usually RESISTANT to Metronidazole. Bacteria Ur Cult If Gram Positive Jeffrey susceptibility studies are desired, contact the Microbiology Laboratory within 48 hours [phone]. Bacteria Ur Cult Actinomyces naeslundii [place] Count 50,000-80,000 Normal [facility] Comment on above: Performed By: #### M 100.2200 ####[facility] [id number] [place], [address] Basic Metabolic Profile (BMP )on 01-22-2024 BUN/CRE 14.9 RATIO Normal 10-20 [facility] Comment on above: Performed By: #### L 100.0100, L500.2500 #### [facility] [address] [place], [address] CA,Total 9.1 mg/dL Normal 8.5-10.1 [facility] Comment on above: Performed By: #### L 100.0100, L500.2500 #### [facility] [address] [place], [address] Chloride [Moles/Vol] 105 mmol/L Normal 98-107 [facility] Comment on above: Performed By: #### L 100.0100, L500.2500 #### [facility] [address] [place], [address] CO2 [Moles/Vol] 24.0 mmol/L Normal 21.0-32.0 [facility] Comment on above: Performed By: #### L 100.0100, L500.2500 #### [facility] [address] [place], [address] Creatinine [Mass/Vol] 0.61 mg/dL Normal 0.55-1.02 [facility] Comment on above: Result Comment: The validity of the calculated GFR GFRAA in patients over 70 years has not been determined. Clinical correlation is essential. Performed By: #### L 100.0100, L500.2500 #### [facility] [address] [place], [address] ECRCL 48.20 ml/min Normal [facility] Comment on above: Performed By: #### L 100.0100, L500.2500 #### [facility] [address] [place], [address] EST GFR - AA 121 mL/min Normal >60 [facility] Comment on above: Result Comment: Afri can Guyanese GFR Calc Performed By: #### L 100.0100, L500.2500 #### [facility] [address] [place], [address] GAP 9 Normal 5-15 [facility] Comment on above: Performed By: #### L 100.0100, L500.2500 #### [facility] [address] [place], [address] GFR/1.73 sq M.predicted among non-blacks MDRD (S/P/Bld) [Vol rate/Area] 100 mL/min/{1.73_m2} Normal >60 [facility] Comment on above: Result Comment: Non- GFR Calc Performed By: #### L 100.0100, L500.2500 #### [facility] [address] [place], [address] Glucose [Mass/Vol] 106 mg/dL Normal 74-106 [facility] Comment on above: Result Comment: Fast ing Glucose result from 100 to 125 mg/dL suggests IMPAIRED HOMEOSTASIS per A.D.A. criteria. Performed By: #### L 100.0100, L500.2500 #### [facility] [address] [place], [address] Potassium [Moles/Vol] 3.6 mmol/L Normal 3.5-5.1 [facility] Comment on above: Performed By: #### L 100.0100, L500.2500 #### [facility] [address] [place], [address] Sodium [Moles/Vol] 138 mmol/L Normal 136-145 [facility] Comment on above: Performed By: #### L 100.0100, L500.2500 #### [facility] [address] [place], [address] Urea nitrogen [Mass/Vol] 9 mg/dL Normal 7-18 [facility] Comment on above: Performed By: #### L 100.0100, L500.2500 #### [facility] [address] [place], [address] CBC W/Diff, Automatedon 06- Absolute Lymph 0.94 X10 3/uL Normal 0.83-4.51 [facility] Comment on above: Performed By: #### L 100.0100, L500.2500 #### [facility] [address] [place], [address] Absolute Neut 3.1 X10 3/uL Normal 2.0-7.7 [facility] Comment on above: Performed By: #### L 100.0100, L500.2500 #### [facility] [address] [place], [address] Basophils/100 WBC (Bld) 0.8 % Normal 0-1 [facility] Comment on above: Performed By: #### L 100.0100, L500.2500 #### [facility] [address] [place], [address] Eosinophils/100 WBC (Bld) 1.0 % Normal 0-5 [facility] Comment on above: Performed By: #### L 100.0100, L500.2500 #### [facility] [address] [place], [address] Erythrocyte distribution width (RBC) [Ratio] 15.9 % High 11.6-14.6 [facility] [facility] Comment on above: Performed By: #### L 100.0100, L500.2500 #### [facility] [address] [place], [address] Hematocrit (Bld) [Volume fraction] 28.9 % Low 37-47 [facility] Comment on above: Performed By: #### L 100.0100, L500.2500 #### [facility] [address] [place], [address] Hemoglobin (Bld) [Mass/Vol] 9.0 g/dL Low 12.0-15.0 [facility] Comment on above: Performed By: #### L 100.0100, L500.2500 #### [facility] [address] [place], [address] IG% 0.200 Normal 0.0-0.9 [facility] Comment on above: Result Comment: IG% - Immature Granulocytes (promyelocytes, myelocytes and metamyelocytes) > 1% indicates that a LEFT SHIFT is Present. Performed By: #### L 100.0100, L500.2500 #### [facility] [address] [place], [address] Lymphocytes/100 WBC (Bld) 19.7 % Normal 19-41 [facility] Comment on above: Performed By: #### L 100.0100, L500.2500 #### [facility] [address] [place], [address] MCH (RBC) [Entitic mass] 30.3 pg Normal 27.0-32.0 [facility] Comment on above: Performed By: #### L 100.0100, L500.2500 #### [facility] [address] [place], [address] MCHC (RBC) [Mass/Vol] 31.1 g/dL Low 32-36 [facility] Comment on above: Performed By: #### L 100.0100, L500.2500 #### [facility] [address] [place], [address] MCV (RBC) [Entitic vol] 97.3 fL Normal 81-99 [facility] Comment on above: Performed By: #### L 100.0100, L500.2500 #### [facility] [address] [place], [address] Monocytes/100 WBC (Bld) 14.0 % High 0-10 [facility] Comment on above: Performed By: #### L 100.0100, L500.2500 #### [facility] [address] [place], [address] Neutrophils/100 WBC (Bld) 64.3 % Normal 47-70 [facility] Comment on above: Performed By: #### L 100.0100, L500.2500 #### [facility] [address] [place], [address] Nucleated RBC (Bld) [#/Vol] 0 10*3/uL Normal 0-5 [facility] Comment on above: Performed By: #### L 100.0100, L500.2500 #### [facility] [address] [place], [address] Platelet mean volume (Bld) [Entitic vol] 9.7 fL Normal 6.2-12.0 [facility] Comment on above: Performed By: #### L 100.0100, L500.2500 #### [facility] [address] [place], [address] Platelets (Bld) [#/Vol] 234 10*3/uL Normal 150-450 [facility] Comment on above: Performed By: #### L 100.0100, L500.2500 #### [facility] [address] [place], [address] RBC (Bld) [#/Vol] 2.97 10*6/uL Low 4.2-5.4 [facility] Comment on above: Performed By: #### L 100.0100, L500.2500 #### [facility] [address] [place], [address] RDW SD 55.8 fl High 35.1-43.9 [facility] Comment on above: Performed By: #### L 100.0100, L500.2500 #### [facility] [address] [place], [address] WBC (Bld) [#/Vol] 4.8 10*3/uL Normal 4.4-11.0 [facility] Comment on above: Performed By: #### L 100.0100, L500.2500 #### [facility] [address] [place], [address] Basic Metabolic Profile (BMP )on 01-21-2024 BUN/CRE 14.5 RATIO Normal 10-20 [facility] Comment on above: Performed By: #### L 500.2500, L100.0100 ####[facility] [address] [place], [address] CA,Total 8.6 mg/dL Normal 8.5-10.1 [facility] Comment on above: Performed By: #### L 500.2500, L100.0100 ####[facility] [address] [place], [address] Chloride [Moles/Vol] 101 mmol/L Normal 98-107 [facility] Comment on above: Performed By: #### L 500.2500, L100.0100 ####[facility] [address] [place], [address] CO2 [Moles/Vol] 26.0 mmol/L Normal 21.0-32.0 [facility] Comment on above: Performed By: #### L 500.2500, L100.0100 ####[facility] [address] [place], [address] Creatinine [Mass/Vol] 0.55 mg/dL Normal 0.55-1.02 [facility] Comment on above: Result Comment: The validity of the calculated GFR GFRAA in patients over 70 years has not been determined. Clinical correlation is essential. Performed By: #### L 500.2500, L100.0100 ####[facility] [address] [place], [address] ECRCL 48.20 ml/min Normal [facility] Comment on above: Performed By: #### L 500.2500, L100.0100 ####[facility] [address] [place], [address] EST GFR - AA 135 mL/min Normal >60 [facility] Comment on above: Result Comment: Afri can Guyanese GFR Calc Performed By: #### L 500.2500, L100.0100 ####[facility] [address] [place], [address] GAP 8 Normal 5-15 [facility] Comment on above: Performed By: #### L 500.2500, L100.0100 ####[facility] [address] [place], [address] GFR/1.73 sq M.predicted among non-blacks MDRD (S/P/Bld) [Vol rate/Area] 112 mL/min/{1.73_m2} Normal >60 [facility] Comment on above: Result Comment: Non- GFR Calc Performed By: #### L 500.2500, L100.0100 ####[facility] [address] [place], [address] Glucose [Mass/Vol] 114 mg/dL High 74-106 [facility] Comment on above: Result Comment: Fast ing Glucose result from 100 to 125 mg/dL suggests IMPAIRED HOMEOSTASIS per A.D.A. criteria. Performed By: #### L 500.2500, L100.0100 ####[facility] [address] [place], [address] Potassium [Moles/Vol] 3.7 mmol/L Normal 3.5-5.1 [facility] Comment on above: Performed By: #### L 500.2500, L100.0100 ####[facility] [address] [place], [address] Sodium [Moles/Vol] 135 mmol/L Low 136-145 [facility] Comment on above: Performed By: #### L 500.2500, L100.0100 ####[facility] [address] [place], [address] Urea nitrogen [Mass/Vol] 8 mg/dL Normal 7-18 [facility] Comment on above: Performed By: #### L 500.2500, L100.0100 ####[facility] [address] [place], [address] CBC W/Diff, Automatedon - Absolute Lymph 0.86 X10 3/uL Normal 0.83-4.51 [facility] Comment on above: Performed By: #### L 500.2500, L100.0100 #### [facility] [address] [place], [address] Absolute Neut 4.0 X10 3/uL Normal 2.0-7.7 [facility] Comment on above: Performed By: #### L 500.2500, L100.0100 #### [facility] [address] [place], [address] Basophils/100 WBC (Bld) 0.6 % Normal 0-1 [facility] Comment on above: Performed By: #### L 500.2500, L100.0100 #### [facility] [address] [place], [address] Eosinophils/100 WBC (Bld) 0.4 % Normal 0-5 [facility] Comment on above: Performed By: #### L 500.2500, L100.0100 #### [facility] [address] [place], [address] Erythrocyte distribution width (RBC) [Ratio] 16.0 % High 11.6-14.6 [facility] Comment on above: Performed By: #### L 500.2500, L100.0100 #### [facility] [address] [place], [address] Hematocrit (Bld) [Volume fraction] 29.1 % Low 37-47 [facility] Comment on above: Performed By: #### L 500.2500, L100.0100 #### [facility] [address] [place], [address] Hemoglobin (Bld) [Mass/Vol] 9.2 g/dL Low 12.0-15.0 [facility] Comment on above: Performed By: #### L 500.2500, L100.0100 #### [facility] [address] [place], [address] IG% 0.200 Normal 0.0-0.9 [facility] Comment on above: Result Comment: IG% - Immature Granulocytes (promyelocytes, myelocytes and metamyelocytes) > 1% indicates that a LEFT SHIFT is Present. Performed By: #### L 500.2500, L100.0100 #### [facility] [address] [place], [address] Lymphocytes/100 WBC (Bld) 15.9 % Low 19-41 [facility] Comment on above: Performed By: #### L 500.2500, L100.0100 #### [facility] [address] [place], [address] MCH (RBC) [Entitic mass] 30.9 pg Normal 27.0-32.0 [facility] Comment on above: Performed By: #### L 500.2500, L100.0100 #### [facility] [address] [place], [address] MCHC (RBC) [Mass/Vol] 31.6 g/dL Low 32-36 [facility] Comment on above: Performed By: #### L 500.2500, L100.0100 #### [facility] [address] [place], [address] MCV (RBC) [Entitic vol] 97.7 fL Normal 81-99 [facility] Comment on above: Performed By: #### L 500.2500, L100.0100 #### [facility] [address] [place], [address] Monocytes/100 WBC (Bld) 9.0 % Normal 0-10 [facility] Comment on above: Performed By: #### L 500.2500, L100.0100 #### [facility] [address] [place], [address] Neutrophils/100 WBC (Bld) 73.9 % High 47-70 [facility] Comment on above: Performed By: #### L 500.2500, L100.0100 #### [facility] [address] [place], [address] Nucleated RBC (Bld) [#/Vol] 0 10*3/uL Normal 0-5 [facility] Comment on above: Performed By: #### L 500.2500, L100.0100 #### [facility] [address] [place], [address] Platelet mean volume (Bld) [Entitic vol] 9.7 fL Normal 6.2-12.0 [facility] Comment on above: Performed By: #### L 500.2500, L100.0100 #### [facility] [address] [place], [address] Platelets (Bld) [#/Vol] 225 10*3/uL Normal 150-450 [facility] Comment on above: Performed By: #### L 500.2500, L100.0100 #### [facility] [address] [place], [address] RBC (Bld) [#/Vol] 2.98 10*6/uL Low 4.2-5.4 [facility] Comment on above: Performed By: #### L 500.2500, L100.0100 #### [facility] [address] [place], [address] RDW SD 57.5 fl High 35.1-43.9 [facility] Comment on above: Performed By: #### L 500.2500, L100.0100 #### [facility] [address] [place], [address] WBC (Bld) [#/Vol] 5.4 10*3/uL Normal 4.4-11.0 [facility] Comment on above: Performed By: #### L 500.2500, L100.0100 #### [facility] [address] [place], [address] 12 Lead EKGon 01-20-2024 12 Lead EKG [facility] Cardi[facility] Services [address] [place] [address] 12 Lead EKG 01/20/24 1053 MR#: [id number] Acct: [id number] Name: STEFANO WASHINGTON Rep #: [id number] : 1940 83 From: Hector Anderson MD Attending Dr: Dr. Marilee Avitia MD Status: DI S IN Ordering Dr: Judi Mejias MD Date: 01/20/24 Location: [facility] Sex: F C Admitted: 01/20/24 Test Reason : Blood Pressure : / mmHG Vent. Rate : 100 BPM Atrial Rate : 100 BPM P-R Int : 140 ms QRS Dur : 136 ms QT Int : 376 ms P-R-T Axes : 055 119 013 degrees QTc Int : 485 ms Normal sinus rhythm Right bundle branch block Left posterior fascicular block Bifascicular block Abnormal ECG Confirmed by MONICA MOREJON, HECTOR ([id number]), image editor KORI JULES ([id number]) on 01/24/2024 11:33:53 AM Referred By: Confirmed By:HECTOR ANDERSON MD 01/24/24 1133 Date Hector Anderson MD CC: Dr. Carl Encarnacion MD; Dr. Judi Mejias MD; Dr. Marilee Avitia MD Signed Normal [facility] Basic Metabolic Profile (BMP )on 01-20-2024 BUN/CRE 19.6 RATIO Normal - [facility] Comment on above: Order Comment: 1 Y Performed By: #### L 501.5425, L500.2500, L100.0100 #### [facility] [address] [place], [address] CA,Total 9.1 mg/dL Normal 8.5-10.1 [facility] Comment on above: Order Comment: 1 Y Performed By: #### L 501.5425, L500.2500, L100.0100 #### [facility] [address] [place], [address] Chloride [Moles/Vol] 100 mmol/L Normal 98-107 [facility] Comment on above: Order Comment: 1 Y Performed By: #### L 501.5425, L500.2500, L100.0100 #### [facility] [address] [place], [address] CO2 [Moles/Vol] 27.0 mmol/L Normal 21.0-32.0 [facility] Comment on above: Order Comment: 1 Y Performed By: #### L 501.5425, L500.2500, L100.0100 #### [facility] [address] [place], [address] Creatinine [Mass/Vol] 0.66 mg/dL Normal 0.55-1.02 [facility] Comment on above: Order Comment: 1 Y Result Comment: The validity of the calculated GFR GFRAA in patients over 70 years has not been determined. Clinical correlation is essential. Performed By: #### L 501.5425, L500.2500, L100.0100 #### [facility] [address] [place], [address] ECRCL 48.20 ml/min Normal [facility] Comment on above: Order Comment: 1 Y Performed By: #### L 501.5425, L500.2500, L100.0100 #### [facility] [address] [place], [address] EST GFR - AA 109 mL/min Normal >60 [facility] Comment on above: Order Comment: 1 Y Result Comment: Afri can Guyanese GFR Calc Performed By: #### L 501.5425, L500.2500, L100.0100 #### [facility] [address] [place], [address] GAP 8 Normal 5-15 [facility] Comment on above: Order Comment: 1 Y Performed By: #### L 501.5425, L500.2500, L100.0100 #### [facility] [address] [place], [address] GFR/1.73 sq M.predicted among non-blacks MDRD (S/P/Bld) [Vol rate/Area] 90 mL/min/{1.73_m2} Normal >60 [facility] Comment on above: Order Comment: 1 Y Result Comment: Non- GFR Calc Performed By: #### L 501.5425, L500.2500, L100.0100 #### [facility] [address] [place], [address] Glucose [Mass/Vol] 116 mg/dL High 74-106 [facility] Comment on above: Order Comment: 1 Y Result Comment: Fast ing Glucose result from 100 to 125 mg/dL suggests IMPAIRED HOMEOSTASIS per A.D.A. criteria. Performed By: #### L 501.5425, L500.2500, L100.0100 #### [facility] [address] [place], [address] Potassium [Moles/Vol] 3.8 mmol/L Normal 3.5-5.1 [facility] Comment on above: Order Comment: 1 Y Performed By: #### L 501.5425, L500.2500, L100.0100 #### [facility] [address] [place], [address] Sodium [Moles/Vol] 135 mmol/L Low 136-145 [facility] Comment on above: Order Comment: 1 Y Performed By: #### L 501.5425, L500.2500, L100.0100 #### [facility] [address] [place], [address] Urea nitrogen [Mass/Vol] 13 mg/dL Normal 7-18 [facility] Comment on above: Order Comment: 1 Y Performed By: #### L 501.5425, L500.2500, L100.0100 #### [facility] [address] [place], [address] CBC W/Diff, Automatedon 01-07-2023 Absolute Lymph 0.88 X10 3/uL Normal 0.83-4.51 [facility] Comment on above: Performed By: #### L 501.5425, L500.2500, L100.0100 #### [facility] [address] [place], [address] Absolute Neut 6.2 X10 3/uL Normal 2.0-7.7 [facility] Comment on above: Performed By: #### L 501.5425, L500.2500, L100.0100 #### [facility] [address] [place], [address] Basophils/100 WBC (Bld) 0.3 % Normal 0-1 [facility] Comment on above: Performed By: #### L 501.5425, L500.2500, L100.0100 #### [facility] [address] [place], [address] Eosinophils/100 WBC (Bld) 0.0 % Normal 0-5 [facility] Comment on above: Performed By: #### L 501.5425, L500.2500, L100.0100 #### [facility] [address] [place], [address] Erythrocyte distribution width (RBC) [Ratio] 16.0 % High 11.6-14.6 [facility] Comment on above: Performed By: #### L 501.5425, L500.2500, L100.0100 #### [facility] [address] [place], [address] Hematocrit (Bld) [Volume fraction] 30.7 % Low 37-47 [facility] Comment on above: Performed By: #### L 501.5425, L500.2500, L100.0100 #### [facility] [address] [place], [address] Hemoglobin (Bld) [Mass/Vol] 9.5 g/dL Low 12.0-15.0 [facility] Comment on above: Performed By: #### L 501.5425, L500.2500, L100.0100 #### [facility] [address] [place], [address] IG% 0.400 Normal 0.0-0.9 [facility] Comment on above: Result Comment: IG% - Immature Granulocytes (promyelocytes, myelocytes and metamyelocytes) > 1% indicates that a LEFT SHIFT is Present. Performed By: #### L 501.5425, L500.2500, L100.0100 #### [facility] [address] [place], [address] Lymphocytes/100 WBC (Bld) 11.6 % Low 19-41 [facility] Comment on above: Performed By: #### L 501.5425, L500.2500, L100.0100 #### [facility] [address] [place], [address] MCH (RBC) [Entitic mass] 30.3 pg Normal 27.0-32.0 [facility] Comment on above: Performed By: #### L 501.5425, L500.2500, L100.0100 #### [facility] [address] [place], [address] MCHC (RBC) [Mass/Vol] 30.9 g/dL Low 32-36 [facility] Comment on above: Performed By: #### L 501.5425, L500.2500, L100.0100 #### [facility] [address] [place], [address] MCV (RBC) [Entitic vol] 97.8 fL Normal 81-99 [facility] Comment on above: Performed By: #### L 501.5425, L500.2500, L100.0100 #### [facility] [address] [place], [address] Monocytes/100 WBC (Bld) 6.6 % Normal 0-10 [facility] Comment on above: Performed By: #### L 501.5425, L500.2500, L100.0100 #### [facility] [address] [place], [address] Neutrophils/100 WBC (Bld) 81.1 % High 47-70 [facility] Comment on above: Performed By: #### L 501.5425, L500.2500, L100.0100 #### [facility] [address] [place], [address] Nucleated RBC (Bld) [#/Vol] 0 10*3/uL Normal 0-5 [facility] Comment on above: Performed By: #### L 501.5425, L500.2500, L100.0100 #### [facility] [address] [place], [address] Platelet mean volume (Bld) [Entitic vol] 9.3 fL Normal 6.2-12.0 [facility] Comment on above: Performed By: #### L 501.5425, L500.2500, L100.0100 #### [facility] [address] [place], [address] Platelets (Bld) [#/Vol] 257 10*3/uL Normal 150-450 [facility] Comment on above: Performed By: #### L 501.5425, L500.2500, L100.0100 #### [facility] [address] [place], [address] RBC (Bld) [#/Vol] 3.14 10*6/uL Low 4.2-5.4 [facility] Comment on above: Performed By: #### L 501.5425, L500.2500, L100.0100 #### [facility] [address] [place], [address] RDW SD 57.1 fl High 35.1-43.9 [facility] Comment on above: Performed By: #### L 501.5425, L500.2500, L100.0100 #### [facility] [address] [place], [address] WBC (Bld) [#/Vol] 7.6 10*3/uL Normal 4.4-11.0 [facility] Comment on above: Performed By: #### L 501.5425, L500.2500, L100.0100 #### [facility] [address] [place], [address] Cardiac Cath Diagnosticon Cardiac Cath Diagnostic [facility] Imaging Services [address] [place] [address] Cardiac Cath Diagnostic MR#: [id number] Acct: [id number] Name: STEFANO WASHINGTON Rep #: [id number] : 1940 83 From: Hector Anderson MD PCP: Dr. Carl Encarnacion MD Status:ADM IN Patient Name: STEFANO WASHINGTON Study Date: 01/20/2024 Performing: Hector Anderson MD Ht: 60 inches 152.4 cm : 1940 Wt: 170.99 lbs 77.56 kg Age: 83 Gender: female BSA: 1.75 PROCEDURE(S) PERFORMED DC01-(26276)LHC/COR/LV CLINICAL PROFILE AND INDICATIONS Indications: Suspected CAD Heart Failure: None Stress/Imaging Stress/Image Study Performed: No CAD Presentations: Other: weakness CONCLUSIONS Cardiomyopathy: Takotsubo Non obstructive coronary arteries RECOMMENDATIONS Medical therapy DESCRIPTION OF PROCEDURE The patient arrived to the procedure lab. The risks and benefits of the procedure as well as a full description of our services here and current unavailability of surgical backup were fully explained to the patient and/or their significant other prior to the catheterization. The Timeout was completed, verifying the correct patient and procedure. The patient's procedural site was prepped and draped in the usual fashion. Local anesthetic was given subcutaneously to right radial region with Lidocaine 2%. Using a modified Seldinger technique, arterial access was obtained via the right radial artery, a 5Fr sheath was inserted. Right Coronary Artery selective angiography was then performed in multiple views using a 5 Fr. 4.0 Logsden catheter. Left Coronary Artery selective angiography was performed in multiple views using a 5 Fr. 4.0 Logsden catheter. Left Ventriculography was performed in WILSON projection using a 5 Fr. Pigtail catheter. LV to AO pullback pressures were then recorded.The arterial sheath was pulled and a TR Band was applied for hemostasis 10 ml of air CORONARY ANGIOGRAPHY DOMINANCE: Right Dominant LEFT HEART ASSESSMENT Left Ventricular Ejection Fraction: by LV Gram 35 % Anterior Hypokinesis - Severe. Apical Hypokinesis - Severe Depressed Left Ventricular systolic function Consistent with Takotsubo cardiomyopathy. LEFT MAIN: 30 distal % Stenosis LEFT ANTERIOR DESCENDING ARTERY: Mild luminal irregularities less than 30% CIRCUMFLEX ARTERY: Mild luminal irregularities less than 30% RIGHT CORONARY ARTERY: Mild luminal irregularities less than 30% VALVE FINDINGS: Aortic Valve Stenosis - mild COMPLICATIONS No Complications PROCEDURE MEDICATIONS Oxygen: 2 L/min via nasal cannula Heparin given IA 01/20/2024 13:45:47 SUMMARY OF HEMODYNAMIC DATA Time AIR REST ECG 13:28:30 ECG 13:28:40 AO 100/54 (75) SA 13:53:02 AO 98/51 (71) 13:57:15 LV 122/-4, 2 14:01:46 LV 123/-3, 2 14:01:55 LV 113/8, 12 14:02:21 LV 113/9, 13 14:02:30 LVp 113/9, 13 14:02:36 LVp 115/9, 15 14:02:38 AOp 96/46 (69) 14:02:45 Signed By Hector Anderson MD On 01/20/2024 14:13:59 Hector Anderson MD 01/20/24 1414 Date Hector Dickinson Signature: Date (if indicated) CC: Dr. Hector Anderson MD; Dr. Carl Encarnacion MD; Dr. Marilee Avitia MD Date Dictated: 01/20/24 1338 Date Transcribed: 01/20/24 1413 [employer] Attendant: [place] Signed Normal [facility] Chest 1 View (Portable)on Chest 1 View (Portable) [facility] Imaging Services [address] [place] [id number] Chest 1 View (Portable) MR#: [id number] Acct: [id number] Name: STEFANO WASHINGTON Rep #: [id number] : 1940 F 83 From: Sixto negrete MD PCP: Dr. Carl Encarnacion MD Status: REG ER Study: Chest 1 View (Portable) Date of Exam: 01/20/24 Exam# [id number] Ordering Dr: Judi Mejias MD [id number] STUDY: X-RAY CHEST REASON FOR EXAM: Female, 83 years old. Pain TECHNIQUE: Single AP portable view of the chest. COMPARISON: Comparison is made with prior study November 23, 2023. FINDINGS: EKG electrodes are seen. Stable increased interstitial markings in both lungs suggestive of scarring. There is no demonstrated pleural abnormality. There is mild cardiac enlargement. Normal mediastinum and cristy. Normal visualized pulmonary arteries. Normal visualized aortic arch and descending thoracic aorta. There are diffuse degenerative changes of the visualized thoracic spine. Normal visualized ribs, clavicles, and shoulders. Large hiatal hernia. RAD/Chest 1 View (Portable) IMPRESSION: Stable examination suggestive of scarring. Electronically Signed: Sixto Leija MD at 12:12 EDT Reading Location ID and State: [facility] , Service support , CC: Dr. Carl Encarnacion MD; Dr. Judi Mejias MD Tourist Camp Attendant: Signed Normal [facility] Consultation - Cardiologyon 01-20-2024 Consultation - Cardiology [facility] Medical Records Department [address] [place] [address] Consultation - Cardiology 01/20/24 1316 MR#: [id number] Acct: [id number] Name: STEFANO WASHINGTON Rep #: [id number] : 1940 83 From: Hector Anderson MD PCP: Dr. Carl Encarnacion MD Status:ADM IN Location: [place] [address] Assessment Plan Assessment/Plan (1) Non-ST elevation FL (NSTEMI): PLAN: She presents with atypical presentation and is noted to have a non-ST elevation myocardial infarction. My recommendation is for us to proceed with a left heart catheterization to assess her coronary anatomy and then further recommendations will be made. I discussed the above with the patient and her relatives he understands and agrees to proceed. Addendum: Cardiac catheterization demonstrated minimal left main disease, mild LAD disease, minimal RCA disease, Left ventricular systolic dysfunction with anterior apical hypokinesis consistent with Takotsubo cardiomyopathy. Will start beta-amy DC nifedipine Echo to formally assess LV function (2) Aortic stenosis: PLAN: She does appear to clinically have at least moderate aortic stenosis. This will be reevaluated with an echocardiogram during this visit. (3) Hypertension: PLAN: Her blood pressure appears to be under fairly decent control. HPI Consult Data Date of Consult: 01/20/24 HPI Narrative HPI Narrative: STEFANO WASHINGTON, is a 83 F who presents to the emergency room with increased weakness. According to the family member she is able to walk and feed herself usually but she felt weaker than usual today. She was recently treated for urinary tract infection. She also had been admitted to [facility] in [place] where she underwent an evaluation with an echocardiogram which demonstrated preserved ejection fraction of 59% plus minus normal right ventricular size and function trileaflet aortic valve with restricted cusp separation with a peak gradient of 31 mmHg and a mean gradient of 18 mmHg. The mitral valve was noted to be normal. She was told that it was not yet time to have her aortic valve fixed. This was in March 2023. This morning she also had developed some left arm discomfort but no chest discomfort. She denied any dizziness near syncope or syncope. She has had some pedal edema. In the emergency room she was noted to be in a right bundle branch block and left anterior fascicular block cardiac troponin enzymes were obtained and were noted to be elevated at 3200 and cardiology was called for further evaluation and management. [facility] Medical History Chronic pain Rheumatoid arthritis Former smoker High cholesterol GERD (gastroesophageal reflux disease) Hypothyroidism Hypertension Home Medications ???Medication ???Instructions ???Recorded ???Last Taken ???Type calcium carbonate 500 mg-vitamin 1 tab PO DAILY SUPPLEMENT 05/09/21 05/08/21 History D3 5 mcg (200 unit) tablet (Calcium 500 + D) levothyroxine 88 mcg tablet 88 mcg PO MOTUWETHFRSA Thyroid 05/09/21 Unknown History multivitamin 1 tab PO DAILY SUPPLEMENT 05/09/21 05/09/21 History omeprazole 20 mg capsule,delayed 20 mg PO DAILY GERD 05/09/21 05/09/21 History release nifedipine 30 mg tablet,extended 30 mg PO DAILY BLOOD PRESSURE 01/12/23 Unknown History release 24 hr cephalexin 500 mg capsule 500 mg PO Q8 3 days #0 caps 11/26/23 Unknown Rx tramadol 50 mg tablet 50 mg PO BID PRN pain 30 days #60 11/26/23 Unknown Rx tabs lovastatin 40 mg tablet 40 mg PO QHS CHOLESTEROL 01/20/24 Unknown History Allergy/AdvReac Type Severity Reaction Status Date / Time No Known Allergies Allergy Verified 01/20/24 09:58 Social History household members: children Smoking Status: Former smoker alcohol intake: never substance use type: does not use ROS Constitutional Constitutional: Denies fever(s) or weight loss Eyes Eyes: Reports systems reviewed and no addt'l complaints, except as documented ENT HEENT: Reports systems reviewed and no addt'l complaints, except as documented Cardiovascular Cardiovascular: Reports other Details: Persistent left arm pain ; Denies chest pain at rest, chest pain with activity, dyspnea at rest, dyspnea on exertion, edema, palpitations or paroxysmal nocturnal dyspnea Respiratory/Chest Respiratory/Chest: Denies dyspnea on exertion, productive cough, shortness of breath at rest or shortness of breath with exertion Gastrointestinal Gastrointestinal: Denies change in bowel habits, nausea, vomiting or weight changes Genitourinary Genitourinary: Denies difficulty urinating Musculoskeletal Musculoskeletal: Denies joint stiffness or muscle weakness Integumentary Integumentary: Denies lesions Neurologic Neurologic: Denies dizziness or syn (more content not included)... Normal [facility] Echo Completeon 01-20-2024 Echo Complete [facility] Cardiovascular Services [address] [place] [address] Echo Complete 01/20/24 1502 MR#: [id number] Acct: [id number] Name: STEFANO WASHINGTON Rep #: [id number] : 1940 83 From: Hector Anderson MD Attending Dr: Dr. Marilee Avitia MD Status: AD M IN Ordering Dr: Hector Anderson MD Date: 01/20/24 Location: [facility] Sex: F C Admitted: 01/20/24 Reason For Study: HYPERTENSION Procedure This was a 2D Doppler, Color Flow transthoracic echocardiogram. The study was technically difficult. Exam performed portable in patient room. Left Ventricle Normal LV size. Left ventricular systolic function is normal. The estimated ejection fraction is 65 %. Stage 1 diastolic dysfunction. No regional wall motion abnormalities noted. Right Ventricle Normal RV size. Normal systolic function. Atria Normal left atrium. Normal right atrium. Tricuspid Valve Normal tricuspid valve. Mild (1+) tricuspid valve insufficiency. Pulmonary artery systolic pressure is 34 mmHg. Aortic Valve Trisinus/trileaflet aortic valve. Mild focal aortic valve calcification. Peak aortic valve gradient 41 mmHg. Mean aortic valve gradient 24 mmHg. Moderate aortic stenosis. Pulmonic Valve Normal pulmonic valve. Great Vessels Normal aortic root. The pulmonary artery is normal size. Normal inferior vena cava. Pericardium/Pleural No pericardial effusion. MMode/2D Measurements Calculations LVIDd: 2.5 cm IVSd: 0.96 cm Ao root diam: 2.9 cm LVIDs: 1.9 cm LVPWd: 0.98 cm FS: 23.5 % LAV(MOD-bp): 51.4 ml LVAd ap4: 17.5 cm2 SV(MOD-sp4): 22.7 ml LAV(MOD-bp) Indexed: 29.4 ml/m2 LVLd ap4: 6.9 cm LAV(MOD-sp2): 41.5 ml EDV(MOD-sp4): 36.7 ml LAV(MOD-sp4): 59.1 ml EDV(sp4-el): 37.3 ml LVAs ap4: 9.9 cm2 LVLs ap4: 6.3 cm ESV(MOD-sp4): 14.0 ml ESV(sp4-el): 13.3 ml EF(MOD-sp4): 61.8 % EF(sp4-el): 64.4 % SV(sp4-el): 24.0 ml LA dimension(2D): 2.7 cm LA A4 area: 18.8 cm2 TAPSE: 2.5 cm Time Measurements MV dec time: 0.21 sec Doppler Measurements Calculations MV E max roxanna: 88.6 cm/sec Lat Peak E' Roxanna: 6.4 cm/sec Med Peak E' Roxanna: 7.3 cm/sec MV A max roxanna: 103.6 cm/sec E/E' lat: 13.9 E/E' med: 12.2 MV E/A: 0.86 MV V2 max: 115.2 cm/sec MV P1/2t max roxanna: 114.3 cm/sec Ao V2 max: 320.1 cm/sec MV max P.3 mmHg MV P1/2t: 42.4 msec Ao max P.0 mmHg MV V2 mean: 74.5 cm/sec MV dec slope: 790.1 cm/sec2 Ao V2 mean: 232.8 cm/sec MV mean P.4 mmHg Ao mean P.7 mmHg MV V2 VTI: 26.4 cm MVA(P1/2t): 5.2 cm2 Ao V2 VTI: 62.9 cm AV (velocity ratio): 0.43 LV V1 max: 130.5 cm/sec PA V2 max: 139.5 cm/sec TR max roxanna: 271.0 cm/sec LV V1 max P.8 mmHg PA V2 mean: 94.9 cm/sec TR max P.4 mmHg LV V1 mean P.2 mmHg LV V1 mean: 100.1 cm/sec LV V1 VTI: 27.1 cm ECHO/Echo Complete Interpretation Summary Normal LV size. Left ventricular systolic function is normal. The estimated ejection fraction is 65 %. Stage 1 diastolic dysfunction. Pulmonary artery systolic pressure is 34 mmHg. Mean aortic valve gradient 24 mmHg. Moderate aortic stenosis. ___ Ordering Physician: Hector Anderson Referring Physician: Carl Encarnacion Performed By: Arely Fishman, IRA, RVT 01/20/24 1615 Date Hector Anderson MD CC: Dr. Hector Anderson MD; Dr. Carl Encarnacion MD; Dr. Marilee Avitia MD Date Dictated: 01/20/24 1502 Date Transcribed: 01/20/24 1615 Tourist Camp Attendant: Signed Normal [facility] Emergency Department Summary on 01-20-2024 Emergency Department Summary [facility] Medical Records Department [address] [place] [address] Emergency Department Summary 01/20/24 MR#: [id number] Acct: [id number] Name: STEFANO WASHINGTON Rep #: [id number] : 1940 83 From: Judi Mejias MD PCP: Dr. Carl Encarnacion MD Status:ADM IN Location: [place] [address]-1 HPI History of Present Illness Chief Complaint: Weakness Informant: patient and family Onset/Context/Timing Onset: Today Narrative Narrative: Patient presents secondary to increased weakness today. Patient normally ambulates with a walker. She states that she was more weak than normal when she got up from bed this morning and was concerned that she was going to fall. Family states when they fed her this morning she was very shaky and spilled her cup. Normally she can feed her cell without difficulty. She states she did have some left upper arm pain near her shoulder today that seems to be resolved at this time. She denies pain into the chest or shortness of breath. She does report frequent UTIs and states she just finished an antibiotic for a kidney infection. [facility] Medical History Chronic pain Rheumatoid arthritis Former smoker High cholesterol GERD (gastroesophageal reflux disease) Hypothyroidism Hypertension Home Medications ???Medication ???Instructions ???Recorded ???Last Taken ???Type calcium carbonate 500 mg-vitamin 1 tab PO DAILY SUPPLEMETN 05/09/21 05/08/21 History D3 5 mcg (200 unit) tablet (Calcium 500 + D) levothyroxine 88 mcg tablet 88 mcg PO MOTUWETHFRSA Thyroid 05/09/21 Unknown History lovastatin 20 mg tablet 40 mg PO DAILY CHOLESTEROL 05/09/21 05/09/21 History multivitamin 1 tab PO DAILY SUPPLEMENT 05/09/21 05/09/21 History omeprazole 20 mg capsule,delayed 20 mg PO DAILY GERD 05/09/21 05/09/21 History release nifedipine 30 mg tablet,extended 30 mg PO DAILY 01/12/23 Unknown History release 24 hr cephalexin 500 mg capsule 500 mg PO Q8 3 days #0 caps 11/26/23 Unknown Rx tramadol 50 mg tablet 50 mg PO BID PRN pain 30 days #60 11/26/23 Unknown Rx tabs Allergy/AdvReac Type Severity Reaction Status Date / Time No Known Allergies Allergy Verified 01/20/24 09:58 Social History household members: children Smoking Status: Former smoker alcohol intake: never substance use type: does not use ROS ROS ED Constitutional Constitutional ED: Denies chills or fever(s) ENT ENT ED: Denies rhinorrhea or sore throat Cardiovascular Cardiovascular: Denies chest pain or palpitations Respiratory/Chest Respiratory/Chest: Denies cough or dyspnea Gastrointestinal Gastrointestinal: Denies abdominal pain, nausea or vomiting Genitourinary Genitourinary ED: Reports other Details: Urine dark in color ; Denies dysuria Musculoskeletal Musculoskeletal: Reports extremity pain; Denies back pain Integumentary Denies Abrasions or rash Neurologic Neurologic: Reports weakness; Denies headache(s) Psychiatric Psychiatric: Denies anxiety or depression Allergic/Immunologic Allergic/Immunologic ED: Denies lip swelling or urticaria EXAM Physical Exam Const Vital Signs: 01/20/24 09:58 01/20/24 10:14 01/20/24 10:14 Temperature 97.8 F 98.1 F Temperature Source Temporal Pulse Rate 104 H 83 Respiratory Rate 18 16 Respiratory Effort Normal Non-Labored Respiratory Pattern Normal Blood Pressure 139/59 H 154/89 H Blood Pressure Mean 85 110 Pulse Ox 93 98 Oxygen Delivery Method Room Air 01/20/24 11:49 Temperature 98.1 F Temperature Source Oral Pulse Rate 93 Respiratory Rate 16 Respiratory Effort Respiratory Pattern Blood Pressure 115/95 H Blood Pressure Mean 101 Pulse Ox 94 Oxygen Delivery Method Room Air Positive well nourished and well developed General Appearance ED: well developed HEENT Reports moist mucous membranes Eyes EOMs intact bilaterally Chest Wall inspection of chest normal and palpation of chest normal Resp normal respiratory effort and clear to auscultation bilaterally Cardio regular rate and regular rhythm Heart Sounds: murmur GI normal to inspection, nondistended, normoactive bowel sounds and non-tender Extremity normal to inspection Extremity Narrative: No reproducible tenderness over the left upper extremity. Patient able to hold both arms up in the bed without difficulty. 3+ edema bilateral lower extremities, symmetric. Patient states this is chronic and at baseline. Neuro oriented x3 Neuro Narrative: No focal neurologic deficit. Psych mental status grossly normal Skin no rashes or lesions noted MDM MDM MDM Narrative Medical decision making narrative: Patient placed on ca (more content not included)... Normal [facility]&P Exam - Hospitalist [facility] Medical Records Department [address] [place] [address] H P Exam - Hospitalist 01/20/24 1255 MR#: [id number] Acct: [id number] Name: STEFANO WASHINGTON Rep #: [id number] : 1940 83 From: Marilee Avitia MD PCP: Dr. Carl Encarnacion MD Status:ADM IN Location: [place] [address] HPI - General General Date of Admission: 01/20/24 Date of Service: 01/20/24 Chief Complaint: weakness HPI Narrative STEFANO WASHINGTON, is a 83 F with a PMH who presents via the ED with a complaint of increased weakness,. She is normally able to ambulate with a walker and feed herself, but she felt much weaker than normal today. She denied any fever, chills, cough, palpitations, dizziness, nausea, vomiting or any other symptoms,. She also had left shoulder pain which went down her left arm. She was recently treated for UTI, but says her urine is still dark and smells offensive. Vitals in the ED were BP of 103/53, MD of 95, RR of 18 and oxygen sats of 94% on room air. CBC showed hemoglobin of 9.5 with WBC of 7.6 and platelets of 257. Chemistry showed sodium of 135, potassium of 3.8 and Cr of 0.66. Initial troponin was 3264. EKG showed no acute ST changes. She is being admitted to be managed for nonstemi. She was taken to the construction or leak gang laborer from the ED. Cardiac cath showed evidence of Takotsubo cardiomyopathy. [facility] Medical History Chronic pain Rheumatoid arthritis Former smoker High cholesterol GERD (gastroesophageal reflux disease) Hypothyroidism Hypertension Home Medications ???Medication ???Instructions ???Recorded ???Last Taken ???Type calcium carbonate 500 mg-vitamin 1 tab PO DAILY SUPPLEMENT 05/09/21 05/08/21 History D3 5 mcg (200 unit) tablet (Calcium 500 + D) levothyroxine 88 mcg tablet 88 mcg PO MOTUWETHFRSA Thyroid 05/09/21 Unknown History multivitamin 1 tab PO DAILY SUPPLEMENT 05/09/21 05/09/21 History omeprazole 20 mg capsule,delayed 20 mg PO DAILY GERD 05/09/21 05/09/21 History release nifedipine 30 mg tablet,extended 30 mg PO DAILY BLOOD PRESSURE 01/12/23 Unknown History release 24 hr tramadol 50 mg tablet 50 mg PO BID PRN pain 30 days #60 11/26/23 Unknown Rx tabs furosemide 20 mg tablet 20 mg PO DAILY PRN swelling 01/20/24 Unknown History lovastatin 40 mg tablet 40 mg PO QHS CHOLESTEROL 01/20/24 Unknown History Allergy/AdvReac Type Severity Reaction Status Date / Time nitrofurantoin (From Allergy Mild Vomiting Verified 01/20/24 15:49 Macrobid) Social History household members: children Smoking Status: Former smoker alcohol intake: never substance use type: does not use ROS Review of Systems ROS Unobtainable: Denies due to encephalopathy Constitutional Constitutional: Reports fatigue, malaise and weakness; Denies anorexia or fever(s) Eyes Eyes: Denies change in vision ENT HEENT: Denies dysphagia or headache(s) Cardiovascular Cardiovascular: Denies chest pain, dyspnea on exertion, edema, lightheadedness, orthopnea, palpitations, paroxysmal nocturnal dyspnea, rapid heart rate or syncope Respiratory/Chest Respiratory/Chest: Denies cough, dyspnea, productive cough, shortness of breath at rest or shortness of breath with exertion Gastrointestinal Gastrointestinal: Denies abdominal pain, constipation, diarrhea, nausea or vomiting Genitourinary Genitourinary: Denies burning urination, dysuria or nocturia Musculoskeletal Musculoskeletal: Denies arthralgias Neurologic Neurologic: Denies confusion, dizziness, focal weakness, headache(s) or numbness Psychiatric Psychiatric: Denies anxiety or depression Endocrine Endocrinology: Denies change in body appearance Vital Signs Vital Signs Vital Signs: 01/20/24 09:58 01/20/24 10:14 01/20/24 10:14 Temperature 97.8 F 98.1 F Temperature Source Temporal Pulse Rate 104 H 83 Respiratory Rate 18 16 Respiratory Effort Normal Non-Labored Respiratory Pattern Normal Blood Pressure 139/59 H 154/89 H Blood Pressure Mean 85 110 Pulse Ox 93 98 Oxygen Delivery Method Room Air 01/20/24 11:49 Temperature 98.1 F Temperature Source Oral Pulse Rate 93 Respiratory Rate 16 Respiratory Effort Respiratory Pattern Blood Pressure 115/95 H Blood Pressure Mean 101 Pulse Ox 94 Oxygen Delivery Method Room Air Weight Weight: 171 lb Body Mass Index (BMI) 33.4 Physical Exam Const alert, oriented x3 and no apparent distress General Appearance: cooperative and uncooperative HEENT normocephalic, head/scalp atraumatic, hearing grossly normal bilaterally and moist oral mucous membranes Mouth: oral and palatal mucosa normal Eyes PERRL, EOMs intact bilaterally and conjunctivae normal (more content not included)... Normal [facility] L501.4020on 01-20-2024 TROPONIN-I HS 2756 pg/mL Invalid Interpretation Code 3.0-54.0 [facility] Comment on above: Result Comment: Crit ical Result(s) Called at: 14:35:57 01/20/2024 by: edita Garcia Results read back by same. Please Note: New Test Units and Gender Specific Reference Ranges. For more information see Policy Stat Procedure [place] High Sensitivity Troponin (TNIH) and attachments. Performed By: #### L 501.4020 #### [facility] [address] [place], [address] L501.5425on 01-20-2024 TROPONIN-I HS 3264 pg/mL Invalid Interpretation Code 3.0-54.0 [facility] Comment on above: Order Comment: 1 Y Result Comment: Crit ical Result(s) Called at: 11:56:48 01/20/2024 by:edita Valdes. Results read back by same. Please Note: New Test Units and Gender Specific Reference Ranges. For more information see Policy Stat Procedure [place] High Sensitivity Troponin (TNIH) and attachments. Performed By: #### L 501.5425, L500.2500, L100.0100 #### [facility] [address] [place], [address] Urinalysis, Completeon 01-19 BACTERIA 2+ /hpf Normal None Seen [facility] Comment on above: Order Comment: MARQUIS TER SPECIMEN Performed By: #### L 400.0001 #### [facility] [address] [place], [address] RBC 0-5 SEEN Normal 0-5 [facility] Comment on above: Order Comment: MARQUIS TER SPECIMEN Performed By: #### L 400.0001 #### [facility] [address] [place], [address] WBC 5-10 SEEN Normal 0-5 [facility] Comment on above: Order Comment: MARQUIS TER SPECIMEN Performed By: #### L 400.0001 #### [facility] [address] [place], [address] EPI,SQUAMOUS 0 SEEN Normal 5-10 [facility] Comment on above: Order Comment: MARQUIS TER SPECIMEN Performed By: #### L 400.0001 #### [facility] [address] [place], [address] Mucus Ql (Urine sed) 0 SEEN Normal [facility] Comment on above: Order Comment: MARQUIS TER SPECIMEN Performed By: #### L 400.0001 #### [facility] [address] [place], [address] Bacteria Ur Culton 4 Bacteria identified Cx Nom (U) ORGANISM ID: 1 10,000 -<50,000 CFU/ml Normal urogenital raghu Normal [facility] Comment on above: Performed By: #### 6 30-4 ####[facility] [id number] [id number] [place] [address] [place] CNPNon 01-11-2024 CNPN Normal [facility] CNPNon 01-07-2024 CNPN Normal [facility] CNPNon 01-06-2024 CNPN Normal [facility] Bacteria Ur Culton 4 Bacteria identified Cx Nom (U) Abnormal [facility] Comment on above: Performed By: #### 6 30-4 ####[facility] [id number] [address] [address] [place] CNPNon 12-16-2023 CNPN Normal [facility] CNPNon 12-15-2023 CNPN Normal [facility] CNPNon 12-14-2023 CNPN Normal [facility] Bacteria Ur Culton Bacteria identified Cx Nom (U) Abnormal [facility] Comment on above: Performed By: #### 6 30-4 ####[facility] [id number] [place] [address] [place] CNOVon 12-13-2023 CNOV Normal [facility] CNPNon 12-13-2023 CNPN Normal [facility] URINALYSIS, REFLEX MICROSCOP ICon 12-13-2023 BACTERIA UL >9821 High Negative [facility] Comment on above: Order Comment: Speci men Type: URINE SPECIMENOrdering Facility: [facility] Address: [address] [place] [address] Performed By: #### L [id number] ####[facility] [id number] [place] [address] [place] Bilirubin Ql (U) Negative Normal Negative [facility] Comment on above: Order Comment: Speci men Type: URINE SPECIMENOrdering Facility: [facility] Address: [address] [place] [address] Performed By: #### L [id number] ####[facility] [id number] [place] [address] [place] Clarity (Unsp spec) Cloudy Abnormal Clear [facility] Comment on above: Order Comment: Speci men Type: URINE SPECIMENOrdering Facility: [facility] Address: [address] [place] [address] Performed By: #### L [id number] ####[facility] [id number] [place] [address] [place] Color (U) Yellow Normal Yellow [facility] Comment on above: Order Comment: Speci men Type: URINE SPECIMENOrdering Facility: [facility] Address: [address] [place] [address] Performed By: #### L [id number] ####[facility] [id number] [place] [address] [place] Epithelial cells LM.HPF (Urine sed) [#/Area] Moderate Normal [facility] Comment on above: Order Comment: Speci men Type: URINE SPECIMENOrdering Facility: [facility] Address: [address] [place] [address] Performed By: #### L [id number] ####[facility] [id number] [place] [address] [place] Glucose Test strip (U) [Mass/Vol] Negative Normal Negative [facility] Comment on above: Order Comment: Speci men Type: URINE SPECIMENOrdering Facility: [facility] Address: [address] [place] [address] Performed By: #### L [id number] ####[facility] [id number] [place] [address] [place] Hemoglobin Ql (U) Trace Abnormal Negative [facility] Comment on above: Order Comment: Speci men Type: URINE SPECIMENOrdering Facility: [facility] Address: [address] [place] [address] Performed By: #### L [id number] ####[facility]IA [id number] [place] [address] [place] Hyaline casts (Urine sed) [#/Area] 1-3 /LPF Abnormal 0 /LPF [facility] Comment on above: Order Comment: Speci men Type: URINE SPECIMENOrdering Facility: [facility] Address: [address] [place] [address] Performed By: #### L [id number] ####[facility] LABCLIA [id number] [place] [address] [place] Ketones Ql (U) Negative Normal Negative [facility] Comment on above: Order Comment: Speci men Type: URINE SPECIMENOrdering Facility: [facility] Address: [address] [place] [address] Performed By: #### L [id number] ####[facility] LABCLIA [id number] [place] [address] [place] Leukocyte esterase Test strip Ql (U) 3+ Abnormal Negative [facility] Comment on above: Order Comment: Speci men Type: URINE SPECIMENOrdering Facility: [facility] Address: [address] [place] [address] Performed By: #### L [id number] ####[facility] LABCLIA [id number] [place] [address] [place] Nitrite Ql (U) Negative Normal Negative [facility] Comment on above: Order Comment: Speci men Type: URINE SPECIMENOrdering Facility: [facility] Address: [address] [place] [address] Performed By: #### L [id number] ####[facility] LABCLIA [id number] [place] [address] [place] pH (U) 7.5 [pH] Normal <8.5 [facility] Comment on above: Order Comment: Speci men Type: URINE SPECIMENOrdering Facility: [facility] Address: [address] [place] [address] Performed By: #### L [id number] ####[facility] LABCLIA [id number] [place] [address] [place] Protein (U) [Mass/Vol] Trace Abnormal Negative [facility] Comment on above: Order Comment: Speci men Type: URINE SPECIMENOrdering Facility: [facility] Address: [address] [place] [address] Performed By: #### L [id number] ####[facility] LABCLIA [id number] [place] [address] [place] RBC LM.HPF (Urine sed) [#/Area] /[HPF] Abnormal 0-2 /HPF [facility] Comment on above: Order Comment: Speci men Type: URINE SPECIMENOrdering Facility: [facility] Address: [address] [place] [address] Performed By: #### L [id number] ####[facility] [id number] [place] [address] [place] Specific gravity (U) [Rel density] 1.008 Normal 1.005-1.03 0 [facility] Comment on above: Order Comment: Speci men Type: URINE SPECIMENOrdering Facility: [facility] Address: [address] [place] [address] Performed By: #### L [id number] ####[facility] [id number] [place] [address] [place] Urobilinogen Ql (U) 0.2 EU/dL Normal 0.2-1.0 EU/dL [facility] Comment on above: Order Comment: Speci men Type: URINE SPECIMENOrdering Facility: [facility] Address: [address] [place] [address] Performed By: #### L [id number] ####[facility] [id number] [place] [address] [place] WBC LM.HPF (Urine sed) [#/Area] /[HPF] Abnormal 0-5 /HPF [facility] Comment on above: Order Comment: Speci men Type: URINE SPECIMENOrdering Facility: [facility] Address: [address] [place] [address] Performed By: #### L [id number] ####[facility] [id number] [place] [address] [place] Yeast.budding LM.HPF (Urine sed) [#/Area] Present Abnormal None Seen [facility] Comment on above: Order Comment: Speci men Type: URINE SPECIMENOrdering Facility: [facility] Address: [address] [place] [address] Performed By: #### L [id number] ####[facility] LABCLIA [id number] [facility] [id number] [address] [place] .GFRon 12-09-2023 GFR 72 ml/min/1.73sqm Normal [facility] ([place] Comment on above: Result Comment: GFR Population mean for , Non- Americans Ages 20-29 = 116 mL/min/1.73 sq.m. Ages 30-39 = 107 mL/min/1.73 sq.m. Ages 40-49 = 99 mL/min/1.73 sq.m. Ages 50-59 = 93 mL/min/1.73 sq.m. Ages 60-69 = 85 mL/min/1.73 sq.m. Ages 70+ = 75 mL/min/1.73 sq.m. Chronic Kidney Disease: Less than 60 mL/min/1.73 square meters End Stage Renal Disease: Less than 15 mL/min/1.73 square meters Performed By: #### A MANJULA, CBC, ADIFF, GFR, BMP #### Rosa Maria [address] [address] GFR Non- 60 ml/min/1.73sqm Normal [facility] ([place] Comment on above: Result Comment: GFR Population mean for , Non- Americans Ages 20-29 = 116 mL/min/1.73 sq.m. Ages 30-39 = 107 mL/min/1.73 sq.m. Ages 40-49 = 99 mL/min/1.73 sq.m. Ages 50-59 = 93 mL/min/1.73 sq.m. Ages 60-69 = 85 mL/min/1.73 sq.m. Ages 70+ = 75 mL/min/1.73 sq.m. Chronic Kidney Disease: Less than 60 mL/min/1.73 square meters End Stage Renal Disease: Less than 15 mL/min/1.73 square meters Performed By: #### A MANJULA, CBC, ADIFF, GFR, BMP #### Rosa Maria [address] [address] BMPon 12-09-2023 BUN/Creatinine Ratio 19 ratio Normal 7-27 [facility] ([place]) Comment on above: Performed By: #### A MANJULA, CBC, ADIFF, GFR, BMP #### [address] [address] Calcium [Mass/Vol] 8.5 mg/dL Normal 8.4-10.2 [facility] ([place]) Comment on above: Performed By: #### A MANJULA, CBC, ADIFF, GFR, BMP #### [address] [address] Chloride [Moles/Vol] 103 mmol/L Normal 98-107 [facility] ([place]) Comment on above: Performed By: #### A MANJULA, CBC, ADIFF, GFR, BMP #### [address] [address] CO2 [Moles/Vol] 31 mmol/L Normal 23-31 [facility] ([place] Comment on above: Performed By: #### A MANJULA, CBC, ADIFF, GFR, BMP #### [address] [address] Creatinine [Mass/Vol] 0.90 mg/dL Normal 0.55-1.02 [facility] ([place] Comment on above: Performed By: #### A MANJULA, CBC, ADIFF, GFR, BMP #### [address] [address] Electrolyte Balance 9.0 mEq/L Normal 4.0-15.0 [facility] ([place] Comment on above: Performed By: #### A MANJULA, CBC, ADIFF, GFR, BMP #### [address] [address] Glucose [Mass/Vol] 98 mg/dL Normal 83-110 [facility] ([place]) Comment on above: Performed By: #### A MANJULA, CBC, ADIFF, GFR, BMP #### [address] [address] Potassium [Moles/Vol] 4.1 mmol/L Normal 3.5-5.1 [facility] ([place]) Comment on above: Performed By: #### A MNAJULA, CBC, ADIFF, GFR, BMP #### [address] [address] [place], [place] [address] Sodium [Moles/Vol] 143 mmol/L Normal 136-145 [facility] ([place]) Comment on above: Performed By: #### A MANJULA, CBC, ADIFF, GFR, BMP #### [address] [address] [place], [place] [address] Urea nitrogen [Mass/Vol] 17 mg/dL Normal 7-18 [facility] ([place] Comment on above: Performed By: #### A MANJULA, CBC, ADIFF, GFR, BMP #### [address] [address] [place], [place] [address] LABORATORYOrdered By: SYSTEM SYSTEM on 12-09-2023 Calcium [Mass/Vol] 8.5 mg/dL Normal 8.4 - 10. 2 mg/dL AO ADM SS Chloride [Moles/Vol] 103 mmol/L Normal 98 - 10 7 mmol/L AO ADM SS CO2 [Moles/Vol] 31 mmol/L Normal 23 - 31 mmol/L AO ADM SS Creatinine [Mass/Vol] 0.90 mg/dL Normal 0.55 - 1.02 mg/dL AO ADM SS Electrolyte Balance 9.0 mEq/L Normal 4.0 - 15 .0 mEq/L AO ADM SS GFR/1.73 sq M.predicted among blacks MDRD (S/P/Bld) [Vol rate/Area] 72 ml/min/1.73sqm Invalid Interpretation Code AO Chemistry S Comment on above: Interpretive Data: GFR Population mean for , Non- Americans Ages 20-29 = 116 mL/min/1.73 sq.m. Ages 30-39 = 107 mL/min/1.73 sq.m. Ages 40-49 = 99 mL/min/1.73 sq.m. Ages 50-59 = 93 mL/min/1.73 sq.m. Ages 60-69 = 85 mL/min/1.73 sq.m. Ages 70+ = 75 mL/min/1.73 sq.m. Chronic Kidney Disease: Less than 60 mL/min/1.73 square meters End Stage Renal Disease: Less than 15 mL/min/1.73 square meters GFR/1.73 sq M.predicted among non-blacks MDRD (S/P/Bld) [Vol rate/Area] 60 ml/min/1.73sqm Invalid Interpretation Code AO Chemistry S Comment on above: Interpretive Data: GFR Population mean for , Non- Americans Ages 20-29 = 116 mL/min/1.73 sq.m. Ages 30-39 = 107 mL/min/1.73 sq.m. Ages 40-49 = 99 mL/min/1.73 sq.m. Ages 50-59 = 93 mL/min/1.73 sq.m. Ages 60-69 = 85 mL/min/1.73 sq.m. Ages 70+ = 75 mL/min/1.73 sq.m. Chronic Kidney Disease: Less than 60 mL/min/1.73 square meters End Stage Renal Disease: Less than 15 mL/min/1.73 square meters Glucose [Mass/Vol] 98 mg/dL Normal 83 - 110 mg/dL AO ADM SS Potassium [Moles/Vol] 4.1 mmol/L Normal 3.5 - 5.1 mmol/L AO ADM SS Sodium [Moles/Vol] 143 mmol/L Normal 136 - 145 mmol/L AO ADM SS Urea nitrogen [Mass/Vol] 17 mg/dL Normal 7 - 18 mg/dL AO ADM SS Urea nitrogen/Creatinine [Mass ratio] 19 ratio Normal 7 - 27 ratio AO ADM SS .Auto Diffon 12-03-2023 Basophil, Absolute 0.0 10 3/mcL Normal 0.0-0.2 [facility] ([place] Comment on above: Performed By: #### A MANJULA, CBC, ADIFF, GFR, BMP #### [address] [address] Basophils/100 WBC (Bld) 0.5 % Normal 0.0-2.5 [facility] ([place] Comment on above: Performed By: #### A MANJULA, CBC, ADIFF, GFR, BMP #### [address] [address] Eosinophil, Absolute 0.1 10 3/mcL Normal 0.0-0.4 [facility] ([place]) Comment on above: Performed By: #### A MANJULA, CBC, ADIFF, GFR, BMP #### [address] [address] Eosinophils/100 WBC (Bld) 2.3 % Normal 0.0-7.0 [facility] ([place] Comment on above: Performed By: #### A MANJULA, CBC, ADIFF, GFR, BMP #### [address] [address] Lymphocyte, Absolute 0.9 10 3/mcL Normal 0.8-3.9 [facility] ([place]) Comment on above: Performed By: #### A MANJULA, CBC, ADIFF, GFR, BMP #### [address] [address] Lymphocytes/100 WBC (Bld) 18.4 % Normal 10.0-50.0 [facility] ([place]) Comment on above: Performed By: #### A MANJULA, CBC, ADIFF, GFR, BMP #### [address] [address] Monocyte, Absolute 0.3 10 3/mcL Normal 0.2-1.0 [facility] ([place]) Comment on above: Performed By: #### A MANJULA, CBC, ADIFF, GFR, BMP #### [address] [address] Monocytes/100 WBC (Bld) 5.9 % Normal 1.7-13.0 [facility] ([place] Comment on above: Performed By: #### A MANJULA, CBC, ADIFF, GFR, BMP #### [address] [address] Neutrophils/100 WBC (Bld) 72.9 % Normal 37.0-80.0 [facility] ([place] Comment on above: Performed By: #### A MANJULA, CBC, ADIFF, GFR, BMP #### [address] [address] .GFRon 12-03-2023 GFR Non- 64 ml/min/1.73sqm Normal [facility] ([place] Comment on above: Result Comment: GFR Population mean for , Non- Americans Ages 20-29 = 116 mL/min/1.73 sq.m. Ages 30-39 = 107 mL/min/1.73 sq.m. Ages 40-49 = 99 mL/min/1.73 sq.m. Ages 50-59 = 93 mL/min/1.73 sq.m. Ages 60-69 = 85 mL/min/1.73 sq.m. Ages 70+ = 75 mL/min/1.73 sq.m. Chronic Kidney Disease: Less than 60 mL/min/1.73 square meters End Stage Renal Disease: Less than 15 mL/min/1.73 square meters Performed By: #### U A #### [address] [address] GFR 77 ml/min/1.73sqm Normal [facility] ([place] Comment on above: Result Comment: GFR Population mean for , Non- Americans Ages 20-29 = 116 mL/min/1.73 sq.m. Ages 30-39 = 107 mL/min/1.73 sq.m. Ages 40-49 = 99 mL/min/1.73 sq.m. Ages 50-59 = 93 mL/min/1.73 sq.m. Ages 60-69 = 85 mL/min/1.73 sq.m. Ages 70+ = 75 mL/min/1.73 sq.m. Chronic Kidney Disease: Less than 60 mL/min/1.73 square meters End Stage Renal Disease: Less than 15 mL/min/1.73 square meters Performed By: #### U A #### [address] [address] .NEUABSon 12-03-2023 Neutrophil, Absolute 3.5 10 3/mcL Normal 2.9-6.2 [facility] ([place] Comment on above: Performed By: #### A MANJULA, CBC, ADIFF, GFR, BMP #### [address] [address] BMPon 12-03-2023 BUN/Creatinine Ratio 14 ratio Normal 7-27 [facility] ([place] Comment on above: Performed By: #### A MANJULA, CBC, ADIFF, GFR, BMP #### [address] [address] Calcium [Mass/Vol] 8.5 mg/dL Normal 8.4-10.2 [facility] ([place] Comment on above: Performed By: #### A MANJULA, CBC, ADIFF, GFR, BMP #### [address] [address] Chloride [Moles/Vol] 102 mmol/L Normal 98-107 [facility] ([place] Comment on above: Performed By: #### A MANJULA, CBC, ADIFF, GFR, BMP #### [address] [address] CO2 [Moles/Vol] 31 mmol/L Normal 23-31 [facility] ([place] Comment on above: Performed By: #### A MANJULA, CBC, ADIFF, GFR, BMP #### [address] [address] Creatinine [Mass/Vol] 0.85 mg/dL Normal 0.55-1.02 [facility] ([place] Comment on above: Performed By: #### A MANJULA, CBC, ADIFF, GFR, BMP #### [address] [address] Electrolyte Balance 8.0 mEq/L Normal 4.0-15.0 [facility] ([place] Comment on above: Performed By: #### A MANJULA, CBC, ADIFF, GFR, BMP #### [address] [address] Glucose [Mass/Vol] 113 mg/dL High 83-110 [facility] ([place] Comment on above: Performed By: #### A MANJULA, CBC, ADIFF, GFR, BMP #### [address] [address] Potassium [Moles/Vol] 3.8 mmol/L Normal 3.5-5.1 [facility] ([place] Comment on above: Performed By: #### A MANJULA, CBC, ADIFF, GFR, BMP #### [address] [address] Sodium [Moles/Vol] 141 mmol/L Normal 136-145 [facility] ([place] Comment on above: Performed By: #### A MANJULA, CBC, ADIFF, GFR, BMP #### [address] [address] Urea nitrogen [Mass/Vol] 12 mg/dL Normal 7-18 [facility] ([place] Comment on above: Performed By: #### A MANJULA, CBC, ADIFF, GFR, BMP #### [address] [address] CBCon 12-03-2023 Erythrocyte distribution width (RBC) [Ratio] 13.1 % Normal 11.5-14.5 [facility] ([place] Comment on above: Performed By: #### A MANJULA, CBC, ADIFF, GFR, BMP #### [address] [address] Hematocrit (Bld) [Volume fraction] 31.1 % Low 37.0-47.0 [facility] ([place] Comment on above: Performed By: #### A MANJULA, CBC, ADIFF, GFR, BMP #### [address] [address] Hgb 10.7 G/dL Low 12.0-16.0 [facility] ([place] Comment on above: Performed By: #### A MANJULA, CBC, ADIFF, GFR, BMP #### [address] [address] MCH (RBC) [Entitic mass] 32.5 pg High 27.0-31.2 [facility] ([place] Comment on above: Performed By: #### A MANJULA, CBC, ADIFF, GFR, BMP #### [address] [address] MCHC 34.5 G/dL Normal 33.0-37.0 [facility] ([place] Comment on above: Performed By: #### A MANJULA, CBC, ADIFF, GFR, BMP #### [address] [address] MCV (RBC) [Entitic vol] 94.2 fL High 80.0-94.0 [facility] ([place] Comment on above: Performed By: #### A MANJULA, CBC, ADIFF, GFR, BMP #### [address] [address] Platelet 283 10 3/mcL Normal 130-400 [facility] ([place] Comment on above: Performed By: #### A MANJULA, CBC, ADIFF, GFR, BMP #### [address] [address] Platelet mean volume (Bld) [Entitic vol] 7.2 fL Low 7.4-10.4 [facility] ([place] Comment on above: Performed By: #### A MANJULA, CBC, ADIFF, GFR, BMP #### [address] [address] RBC 3.30 10 6/mcL Low 4.20-5.40 [facility] ([place] Comment on above: Performed By: #### A MANJULA, CBC, ADIFF, GFR, BMP #### [address] [address] WBC 4.8 10 3/mcL Normal 4.6-10.8 [facility] ([place] Comment on above: Performed By: #### A MANJULA, CBC, ADIFF, GFR, BMP #### [address] [address] LABORATORYOrdered By: SYSTEM SYSTEM on 12-03-2023 Basophil, Absolute 0.0 103/mcL Normal 0.0 - 0.2 10^3/mcL AO Workflow SS Basophils/100 WBC (Bld) 0.5 % Normal 0.0 - 2.5 % AO Workflow SS Calcium [Mass/Vol] 8.5 mg/dL Normal 8.4 - 10. 2 mg/dL AO ADM SS Chloride [Moles/Vol] 102 mmol/L Normal 98 - 10 7 mmol/L AO ADM SS CO2 [Moles/Vol] 31 mmol/L Normal 23 - 31 mmol/L AO ADM SS Creatinine [Mass/Vol] 0.85 mg/dL Normal 0.55 - 1.02 mg/dL AO ADM SS Electrolyte Balance 8.0 mEq/L Normal 4.0 - 15 .0 mEq/L AO ADM SS Eosinophil, Absolute 0.1 103/mcL Normal 0.0 - 0 .4 10^3/mcL AO Workflow SS Eosinophils/100 WBC (Bld) 2.3 % Normal 0.0 - 7.0 % AO Workflow SS Erythrocyte distribution width (RBC) [Ratio] 13.1 % Normal 11.5 - 14.5 % AO Workflow SS GFR/1.73 sq M.predicted among blacks MDRD (S/P/Bld) [Vol rate/Area] 77 ml/min/1.73sqm Invalid Interpretation Code AO Chemistry S Comment on above: Interpretive Data: GFR Population mean for , Non- Americans Ages 20-29 = 116 mL/min/1.73 sq.m. Ages 30-39 = 107 mL/min/1.73 sq.m. Ages 40-49 = 99 mL/min/1.73 sq.m. Ages 50-59 = 93 mL/min/1.73 sq.m. Ages 60-69 = 85 mL/min/1.73 sq.m. Ages 70+ = 75 mL/min/1.73 sq.m. Chronic Kidney Disease: Less than 60 mL/min/1.73 square meters End Stage Renal Disease: Less than 15 mL/min/1.73 square meters GFR/1.73 sq M.predicted among non-blacks MDRD (S/P/Bld) [Vol rate/Area] 64 ml/min/1.73sqm Invalid Interpretation Code AO Chemistry S Comment on above: Interpretive Data: GFR Population mean for , Non- Americans Ages 20-29 = 116 mL/min/1.73 sq.m. Ages 30-39 = 107 mL/min/1.73 sq.m. Ages 40-49 = 99 mL/min/1.73 sq.m. Ages 50-59 = 93 mL/min/1.73 sq.m. Ages 60-69 = 85 mL/min/1.73 sq.m. Ages 70+ = 75 mL/min/1.73 sq.m. Chronic Kidney Disease: Less than 60 mL/min/1.73 square meters End Stage Renal Disease: Less than 15 mL/min/1.73 square meters Glucose [Mass/Vol] 113 mg/dL High 83 - 110 mg/dL AO ADM SS Hematocrit (Bld) [Volume fraction] 31.1 % Low 37.0 - 47.0 % AO Workflow SS Hemoglobin (Bld) [Mass/Vol] 10.7 G/dL Low 12.0 - 16.0 G/dL AO Workflow SS Lymphocyte, Absolute 0.9 103/mcL Normal 0.8 - 3 .9 10^3/mcL AO Workflow SS Lymphocytes/100 WBC (Bld) 18.4 % Normal 10.0 - 50.0 % AO Workflow SS MCH (RBC) [Entitic mass] 32.5 pg High 27.0 - 31.2 pg AO Workflow SS MCHC 34.5 G/dL Normal 33.0 - 37.0 G/dL AO Workflow SS MCV (RBC) [Entitic vol] 94.2 fL High 80.0 - 94.0 fL AO Workflow SS Monocyte, Absolute 0.3 103/mcL Normal 0.2 - 1.0 10^3/mcL AO Workflow SS Monocytes/100 WBC (Bld) 5.9 % Normal 1.7 - 13.0 % AO Workflow SS Neutrophil, Absolute 3.5 103/mcL Normal 2.9 - 6 .2 10^3/mcL AO Workflow SS Neutrophils/100 WBC (Bld) 72.9 % Normal 37.0 - 80.0 % AO Workflow SS Platelet mean volume (Bld) [Entitic vol] 7.2 fL Low 7.4 - 10.4 fL AO Workflow SS Platelets (Bld) [#/Vol] 283 103/mcL Normal 130 - 400 10^3/mcL AO Workflow SS Potassium [Moles/Vol] 3.8 mmol/L Normal 3.5 - 5.1 mmol/L AO ADM SS RBC (Bld) [#/Vol] 3.30 106/mcL Low 4.20 - 5.40 10^6/mcL AO Workflow SS Sodium [Moles/Vol] 141 mmol/L Normal 136 - 145 mmol/L AO ADM SS Urea nitrogen [Mass/Vol] 12 mg/dL Normal 7 - 18 mg/dL AO ADM SS Urea nitrogen/Creatinine [Mass ratio] 14 ratio Normal 7 - 27 ratio AO ADM SS WBC (Bld) [#/Vol] 4.8 103/mcL Normal 4.6 - 10.8 10^3/mcL AO Workflow SS LABORATORYOrdered By: Raphael Mcghee on 04-26-2024 Adenovirus DNA FAUSTO+non-probe Ql (Nph) Not Detected *NA* (12/03/23 8:03 AM) Invalid Interpretation Code Not Detected AH Auto Viro/Sero SS B. parapertussis [id number] DNA FAUSTO+non-probe Ql (Nph) Not Detected *NA* (12/03/23 8:03 AM) Invalid Interpretation Code Not Detected AH Auto Viro/Sero SS B. pertussis toxin promoter region FAUSTO+non-probe Ql (Nph) Not Detected *NA* (12/03/23 8:03 AM) Invalid Interpretation Code Not Detected AH Auto Viro/Sero SS C. pneumoniae DNA FAUSTO+non-probe Ql (Nph) Not Detected *NA* (12/03/23 8:03 AM) Invalid Interpretation Code Not Detected AH Auto Viro/Sero SS FLUAV RNA FAUSTO+non-probe Ql (Nph) Not Detected *NA* (12/03/23 8:03 AM) Invalid Interpretation Code Not Detected AH Auto Viro/Sero SS FLUBV RNA FAUSTO+non-probe Ql (Nph) Not Detected *NA* (12/03/23 8:03 AM) Invalid Interpretation Code Not Detected AH Auto Viro/Sero SS hMPV RNA FAUSTO+non-probe Ql (Nph) Not Detected *NA* (12/03/23 8:03 AM) Invalid Interpretation Code Not Detected AH Auto Viro/Sero SS M. pneumoniae DNA FAUSTO+non-probe Ql (Nph) Not Detected *NA* (12/03/23 8:03 AM) Invalid Interpretation Code Not Detected AH Auto Viro/Sero SS Parainfluenza virus 1 RNA FAUSTO+non-probe Ql (Nph) Not Detected *NA* (12/03/23 8:03 AM) Invalid Interpretation Code Not Detected AH Auto Viro/Sero SS Parainfluenza virus 2 RNA FAUSTO+non-probe Ql (Nph) Not Detected *NA* (12/03/23 8:03 AM) Invalid Interpretation Code Not Detected AH Auto Viro/Sero SS Parainfluenza virus 3 RNA FAUSTO+non-probe Ql (Nph) Not Detected *NA* (12/03/23 8:03 AM) Invalid Interpretation Code Not Detected AH Auto Viro/Sero SS Parainfluenza virus 4 RNA FAUSTO+non-probe Ql (Nph) Not Detected *NA* (12/03/23 8:03 AM) Invalid Interpretation Code Not Detected AH Auto Viro/Sero SS Rhinovirus+Enterovirus RNA FAUSTO+non-probe Ql (Nph) Not Detected *NA* (12/03/23 8:03 AM) Invalid Interpretation Code Not Detected AH Auto Viro/Sero SS RSV RNA FAUSTO+non-probe Ql (Nph) Not Detected *NA* (12/03/23 8:03 AM) Invalid Interpretation Code Not Detected AH Auto Viro/Sero SS SARS-CoV-2 (COVID-19) RNA FAUSTO+probe Ql (Resp) Not Detected 1 *NA* (12/03/23 8:03 AM) Invalid Interpretation Code Not Detected AH Auto Viro/Sero SS Comment on above: Interpretive Data: T his test is being used under the FDA EUA procedure. This assay has been validated in the [facility] for use with nasopharyngeal specimens in [facility]. If a non-validated specimen or test collection method was used, please interpret the results with caution, especially if the test result is negative. A positive test result for COVID-19 indicates that RNA from SARS-CoV-2 was detected, and the patient is infected with the virus and presumed to be contagious. Laboratory test results should always be considered in the context of clinical observations and epidemiological data in making a final diagnosis and patient management decisions. Patient management should follow current CDC guidelines. A negative test result for this test means that SARS-CoV-2 RNA was not present in the specimen above the limit of detection. However, a negative result does not rule out COVID-19 and should not be used as the sole basis for treatment or patient management decisions. A negative result does not exclude the possibility of COVID-19. When diagnostic testing is negative, the possibility of a false negative result should be considered in the context of a patient's recent exposures and the presence of clinical signs and symptoms consistent with COVID-19. The possibility of a false negative result should especially be considered if the patient s recent exposures or clinical presentation indicate that COVID-19 is likely, and diagnostic tests for other causes of illness (e.g., other respiratory illness) are negative. If COVID-19 is still suspected based on exposure history together with other clinical findings, re-testing should be considered by healthcare providers in consultation with public health authorities. LABORATORYOrdered By: Ulices Houston on 12-03-2023 Appearance (U) Clear (12/03/23 8:03 AM) Normal Clear AO Auto Urine SS Bilirubin Ql (U) Negative (12/03/23 8:03 AM) Normal Negative AO Auto Urine SS Color (U) Yellow (12/03/23 8:03 AM) Normal AO Auto Urine SS Glucose Test strip (U) [Mass/Vol] Negative Normal Negative AO Auto Urine SS Hemoglobin Auto test strip (U) [Mass/Vol] Negative (12/03/23 8:03 AM) Normal Negative AO Auto Urine SS Ketones Ql (U) Negative Normal Negative AO Auto Ur ine SS UA Leuk Est Negative (12/03/23 8:03 AM) Normal Negative AO Auto Urine SS UA Nitrite Negative (12/03/23 8:03 AM) Normal Negative AO Auto Urine SS UA pH 7.0 (12/03/23 8:03 AM) Normal 5.0 - 8.0 AO Auto Urine SS UA Protein Negative Normal Negative AO Auto Urine SS UA Spec Grav 1.010 *ABN* (12/03/23 8:03 AM) Invalid Interpretation Code 1.015-1.02 5 AO Auto Urine SS UA Specimen Type Clean Catch (12/03/23 8:03 AM) Normal AO Auto Urine SS UA Urobilinogen 0.2 E.U./dL Normal 0.2-1.0 AO Auto Urine SS RESCVIDon 12-03-2023 Adenovirus Not detected Normal Not Detected [facility] ([place] Comment on above: Performed By: #### A MANJULA, CBC, ADIFF, GFR, BMP #### [address] [address] Bordetella Parapertussis Not detected Normal Not Detected [facility] ([place] Comment on above: Performed By: #### A MANJULA, CBC, ADIFF, GFR, BMP #### [address] [address] Bordetella Pertussis Not detected Normal Not Detected [facility] ([place] Comment on above: Performed By: #### A MANJULA, CBC, ADIFF, GFR, BMP #### [address] [address] Chlamydophila pneumoniae Not detected Normal Not Detected [facility] ([place] Comment on above: Performed By: #### A MANJULA, CBC, ADIFF, GFR, BMP #### [place] [address] Coronavirus 229E (Not COVID-19) Not detected Normal Not Detected [facility] ([place]) Comment on above: Performed By: #### A MANJULA, CBC, ADIFF, GFR, BMP #### [place] [address] Coronavirus HKU1 (Not COVID-19) Not detected Normal Not Detected [facility] ([place]) Comment on above: Performed By: #### A MANJULA, CBC, ADIFF, GFR, BMP #### [place] [address] Coronavirus NL63 (Not COVID-19) Not detected Normal Not Detected [facility] ([place]) Comment on above: Performed By: #### A MANJULA, CBC, ADIFF, GFR, BMP #### [place] [address] Coronavirus OC43 (Not COVID-19) Not detected Normal Not Detected [facility] ([place]) Comment on above: Performed By: #### A MANJULA, CBC, ADIFF, GFR, BMP #### [place] [address] Human Metapneumovirus Not detected Normal Not Detected [facility] ([place] Comment on above: Performed By: #### A MANJULA, CBC, ADIFF, GFR, BMP #### [place] [address] Influenza A Not detected Normal Not Detected [facility] ([place] Comment on above: Performed By: #### A MANJULA, CBC, ADIFF, GFR, BMP #### [place] [address] Influenza B Not detected Normal Not Detected [facility] ([place] Comment on above: Performed By: #### A MANJULA, CBC, ADIFF, GFR, BMP #### [place] [address] Mycoplasma pneumoniae Not detected Normal Not Detected [facility] ([place] Comment on above: Performed By: #### A MANJULA, CBC, ADIFF, GFR, BMP #### [place] [address] Parainfluenza 1 Not detected Normal Not Detected [facility] [place] Comment on above: Performed By: #### A MANJULA, CBC, ADIFF, GFR, BMP #### [place] [address] Parainfluenza 2 Not detected Normal Not Detected [facility] [place] Comment on above: Performed By: #### A MANJULA, CBC, ADIFF, GFR, BMP #### [place] [address] Parainfluenza 3 Not detected Normal Not Detected [facility] [place] Comment on above: Performed By: #### A MANJULA, CBC, ADIFF, GFR, BMP #### [place] [address] Parainfluenza 4 Not detected Normal Not Detected [facility] [place] Comment on above: Performed By: #### A MANJULA, CBC, ADIFF, GFR, BMP #### [place] [address] Respiratory Syncytial Virus Not detected Normal Not Detected [facility] [place] Comment on above: Performed By: #### A MANJULA, CBC, ADIFF, GFR, BMP #### [place] [address] Rhinovirus/Enterovirus Not detected Normal Not Detected [facility] [place] Comment on above: Performed By: #### A MANJULA, CBC, ADIFF, GFR, BMP #### [place] [address] SARS-CoV-2 (COVID-19) RNA FAUSTO+probe Ql (Unsp spec) Not detected Normal Not Detected [facility] [place] Comment on above: Result Comment: This test is being used under the FDA EUA procedure. This assay has been validated in the [facility] for use with nasopharyngeal specimens in [facility]. If a non-validated specimen or test collection method was used, please interpret the results with caution, especially if the test result is negative. A positive test result for COVID-19 indicates that RNA from SARS-CoV-2 was detected, and the patient is infected with the virus and presumed to be contagious. Laboratory test results should always be considered in the context of clinical observations and epidemiological data in making a final diagnosis and patient management decisions. Patient management should follow current CDC guidelines. A negative test result for this test means that SARS-CoV-2 RNA was not present in the specimen above the limit of detection. However, a negative result does not rule out COVID-19 and should not be used as the sole basis for treatment or patient management decisions. A negative result does not exclude the possibility of COVID-19. When diagnostic testing is negative, the possibility of a false negative result should be considered in the context of a patient's recent exposures and the presence of clinical signs and symptoms consistent with COVID-19. The possibility of a false negative result should especially be considered if the patient?s recent exposures or clinical presentation indicate that COVID-19 is likely, and diagnostic tests for other causes of illness (e.g., other respiratory illness) are negative. If COVID-19 is still suspected based on exposure history together with other clinical findings, re-testing should be considered by healthcare providers in consultation with public health authorities. Performed By: #### A MANJULA, CBC, ADIFF, GFR, BMP #### [address] [address] UAon 12-03-2023 Color (U) Yellow Normal [facility] [place] Comment on above: Performed By: #### U A #### [address] [address] Glucose (U) [Mass/Vol] Negative Normal Negative [facility] ([place] Comment on above: Performed By: #### U A #### [address] [address] Ketones Ql (U) Negative Normal Negative [facility] ([place] Comment on above: Performed By: #### U A #### [address] [address] UA Appear Clear Normal Clear [facility] ([place] Comment on above: Performed By: #### U A #### [place] [id number] UA Blood Negative Normal Negative [facility] ([place] Comment on above: Performed By: #### U A #### [place] [address] UA Leuk Est Negative Normal Negative [facility] ([place] Comment on above: Performed By: #### U A #### [place] [address] UA Nitrite Negative Normal Negative [facility] ([place] Comment on above: Performed By: #### U A #### [place] [address] UA pH 7.0 Normal 5.0 - 8.0 [facility] ([place] Comment on above: Performed By: #### U A #### [place] [address] UA Protein Negative Normal Negative [facility] ([place] Comment on above: Performed By: #### U A #### [place] [address] UA Spec Grav 1.010 Abnormal 1.015-1.02 5 [facility] ([place] Comment on above: Performed By: #### U A #### [place] [address] UA Specimen Type Clean Catch Normal [facility] ([place] Comment on above: Performed By: #### U A #### [place] [address] UA Urobilinogen 0.2 E.U./dL Normal 0.2-1.0 [facility] ([place] Comment on above: Performed By: #### U A #### [place] [address] Urobilinogen (U) [Mass/Vol] Negative Normal Negative [facility] ([place] Comment on above: Performed By: #### U A #### [place] [address] .Auto Diffon 04-25-2024 Basophil, Absolute 0.0 10 3/mcL Normal 0.0-0.2 [facility] ([place] Comment on above: Performed By: #### A MANJULA, CBC, ADIFF, GFR, BMP #### [address] [address] Basophils/100 WBC (Bld) 0.9 % Normal 0.0-2.5 [facility] ([place] Comment on above: Performed By: #### A MANJULA, CBC, ADIFF, GFR, BMP #### [address] [address] Eosinophil, Absolute 0.1 10 3/mcL Normal 0.0-0.4 [facility] ([place] Comment on above: Performed By: #### A MANJULA, CBC, ADIFF, GFR, BMP #### [address] [address] Eosinophils/100 WBC (Bld) 2.4 % Normal 0.0-7.0 [facility] ([place] Comment on above: Performed By: #### A MANJULA, CBC, ADIFF, GFR, BMP #### [address] [address] Lymphocyte, Absolute 0.9 10 3/mcL Normal 0.8-3.9 [facility] ([place] Comment on above: Performed By: #### A MANJULA, CBC, ADIFF, GFR, BMP #### [address] [address] Lymphocytes/100 WBC (Bld) 19.6 % Normal 10.0-50.0 [facility] ([place] Comment on above: Performed By: #### A MANJULA, CBC, ADIFF, GFR, BMP #### [address] [address] Monocyte, Absolute 0.3 10 3/mcL Normal 0.2-1.0 [facility] ([place] Comment on above: Performed By: #### A MANJULA, CBC, ADIFF, GFR, BMP #### [address] [address] Monocytes/100 WBC (Bld) 7.0 % Normal 1.7-13.0 [facility] ([place] Comment on above: Performed By: #### A MANJULA, CBC, ADIFF, GFR, BMP #### [address] [address] Neutrophils/100 WBC (Bld) 70.1 % Normal 37.0-80.0 [facility] ([place] Comment on above: Performed By: #### A MANJULA, CBC, ADIFF, GFR, BMP #### [address] [address] .GFRon 12-02-2023 GFR 94 ml/min/1.73sqm Normal [facility] ([place] Comment on above: Result Comment: GFR Population mean for , Non- Americans Ages 20-29 = 116 mL/min/1.73 sq.m. Ages 30-39 = 107 mL/min/1.73 sq.m. Ages 40-49 = 99 mL/min/1.73 sq.m. Ages 50-59 = 93 mL/min/1.73 sq.m. Ages 60-69 = 85 mL/min/1.73 sq.m. Ages 70+ = 75 mL/min/1.73 sq.m. Chronic Kidney Disease: Less than 60 mL/min/1.73 square meters End Stage Renal Disease: Less than 15 mL/min/1.73 square meters Performed By: #### A MANJULA, CBC, ADIFF, GFR, BMP #### [address] [address] GFR Non- 77 ml/min/1.73sqm Normal [facility] ([place] Comment on above: Result Comment: GFR Population mean for , Non- Americans Ages 20-29 = 116 mL/min/1.73 sq.m. Ages 30-39 = 107 mL/min/1.73 sq.m. Ages 40-49 = 99 mL/min/1.73 sq.m. Ages 50-59 = 93 mL/min/1.73 sq.m. Ages 60-69 = 85 mL/min/1.73 sq.m. Ages 70+ = 75 mL/min/1.73 sq.m. Chronic Kidney Disease: Less than 60 mL/min/1.73 square meters End Stage Renal Disease: Less than 15 mL/min/1.73 square meters Performed By: #### A MANJULA, CBC, ADIFF, GFR, BMP #### [address] [address] .NEUABSon 12-02-2023 Neutrophil, Absolute 3.2 10 3/mcL Normal 2.9-6.2 [facility] ([place] Comment on above: Performed By: #### A MANJULA, CBC, ADIFF, GFR, BMP #### [address] [address] BMPon 12-02-2023 BUN/Creatinine Ratio 17 ratio Normal 7-27 [facility] ([place] Comment on above: Performed By: #### A MANJULA, CBC, ADIFF, GFR, BMP #### [address] [address] Calcium [Mass/Vol] 8.7 mg/dL Normal 8.4-10.2 [facility] ([place] Comment on above: Performed By: #### A MANJULA, CBC, ADIFF, GFR, BMP #### [address] [address] Chloride [Moles/Vol] 102 mmol/L Normal 98-107 [facility] ([place] Comment on above: Performed By: #### A MANJULA, CBC, ADIFF, GFR, BMP #### [address] [address] CO2 [Moles/Vol] 29 mmol/L Normal 23-31 [facility] ([place] Comment on above: Performed By: #### A MANJULA, CBC, ADIFF, GFR, BMP #### [address] [address] Creatinine [Mass/Vol] 0.72 mg/dL Normal 0.55-1.02 [facility] ([place] Comment on above: Performed By: #### A MANJULA, CBC, ADIFF, GFR, BMP #### [address] [address] Electrolyte Balance 10.0 mEq/L Normal 4.0-15.0 [facility] ([place] Comment on above: Performed By: #### A MANJULA, CBC, ADIFF, GFR, BMP #### [address] [address] Glucose [Mass/Vol] 103 mg/dL Normal 83-110 [facility] ([place] Comment on above: Performed By: #### A MANJULA, CBC, ADIFF, GFR, BMP #### [address] [address] Potassium [Moles/Vol] 4.4 mmol/L Normal 3.5-5.1 [facility] ([place] Comment on above: Performed By: #### A MANJULA, CBC, ADIFF, GFR, BMP #### [address] [address] Sodium [Moles/Vol] 141 mmol/L Normal 136-145 [facility] ([place] Comment on above: Performed By: #### A MANJULA, CBC, ADIFF, GFR, BMP #### [address] [address] Urea nitrogen [Mass/Vol] 12 mg/dL Normal 7-18 [facility] ([place] Comment on above: Performed By: #### A MANJULA, CBC, ADIFF, GFR, BMP #### [address] [address] CBCon 12-02-2023 Erythrocyte distribution width (RBC) [Ratio] 13.3 % Normal 11.5-14.5 [facility] Comment on above: Performed By: #### A MANJULA, CBC, ADIFF, GFR, BMP #### [address] [address] Hematocrit (Bld) [Volume fraction] 33.2 % Low 37.0-47.0 [facility] [place] Comment on above: Performed By: #### A MANJULA, CBC, ADIFF, GFR, BMP #### [address] [address] Hgb 11.0 G/dL Low 12.0-16.0 [facility] ([place] Comment on above: Performed By: #### A MANJULA, CBC, ADIFF, GFR, BMP #### [address] [address] MCH (RBC) [Entitic mass] 31.6 pg High 27.0-31.2 [facility] ([place] Comment on above: Performed By: #### A MANJULA, CBC, ADIFF, GFR, BMP #### [address] [address] MCHC 33.2 G/dL Normal 33.0-37.0 [facility] ([place] Comment on above: Performed By: #### A MANJULA, CBC, ADIFF, GFR, BMP #### [address] [address] MCV (RBC) [Entitic vol] 95.2 fL High 80.0-94.0 [facility] ([place] Comment on above: Performed By: #### A MANJULA, CBC, ADIFF, GFR, BMP #### [address] [address] Platelet 319 10 3/mcL Normal 130-400 [facility] ([place] Comment on above: Performed By: #### A MANJULA, CBC, ADIFF, GFR, BMP #### [address] [address] Platelet mean volume (Bld) [Entitic vol] 7.5 fL Normal 7.4-10.4 [facility] ([place] Comment on above: Performed By: #### A MANJULA, CBC, ADIFF, GFR, BMP #### [address] [address] RBC 3.49 10 6/mcL Low 4.20-5.40 [facility] ([place] Comment on above: Performed By: #### A MANJULA, CBC, ADIFF, GFR, BMP #### [address] [address] WBC 4.5 10 3/mcL Low 4.6-10.8 [facility] ([place] Comment on above: Performed By: #### A MANJULA, CBC, ADIFF, GFR, BMP #### [place] [address] CVFLURVon 12-02-2023 FLU A PCR Negative Normal Negative [facility] ([place] Comment on above: Performed By: #### A MANJULA, CBC, ADIFF, GFR, BMP #### [place] [address] FLU B PCR Negative Normal Negative [facility] ([place] Comment on above: Performed By: #### A MANJULA, CBC, ADIFF, GFR, BMP #### [place] [address] RSV PCR Negative Normal Negative [facility] ([place] Comment on above: Performed By: #### A MANJULA, CBC, ADIFF, GFR, BMP #### [place] [address] SARS-CoV-2 (COVID-19) RNA FAUSTO+probe Ql (Unsp spec) Negative Normal Negative [facility] ([place] Comment on above: Result Comment: Resu lts from the Xpert Xpress CoV-2/Flu/RSV plus test should be correlated with the clinical history, epidemiological data, and other data available to the clinical evaluating the patient. Performance of the Xpert Xpress CoV-2/Flu/RSV plus test has only been established in nasopharyngeal swab specimen. Erroneous test results might occur from improper specimen collection, failure to follow the recommended sample collection, handling and storage procedures, technical error, or sample mix-up. False negative results may occur if a virus is present at a level below the analytical limit of detection. Viral nucleic acid may persist in vivo, independent of virus viability. Detection of analyte target(s) does not imply that the corresponding virus(es) are infectious or are the causative agents for clinical symptoms. Recent patient exposure to FluMist or other live attenuated influenza vaccines may cause inaccurate positive results. Performed By: #### A MANJULA, CBC, ADIFF, GFR, BMP #### [place] [address] LABORATORYOrdered By: Mina Pedersen on 12-02-2023 FLUAV RNA FAUSTO+probe Ql (Resp) Negative (12/02/23 8:44 AM) Normal Negative AO Auto Urine SS FLUBV RNA FAUSTO+probe Ql (Resp) Negative (12/02/23 8:44 AM) Normal Negative AO Auto Urine SS RSV RNA FAUSTO+probe Ql (Resp) Negative (12/02/23 8:44 AM) Normal Negative AO Auto Urine SS SARS-CoV-2 (COVID-19) RNA FAUSTO+probe Ql (Resp) Negative 2 (12/02/23 8:44 AM) Normal Negative AO Auto Urine SS Comment on above: Interpretive Data: R esults from the Xpert Xpress CoV-2/Flu/RSV plus test should be correlated with the clinical history, epidemiological data, and other data available to the clinical evaluating the patient. Performance of the Xpert Xpress CoV-2/Flu/RSV plus test has only been established in nasopharyngeal swab specimen. Erroneous test results might occur from improper specimen collection, failure to follow the recommended sample collection, handling and storage procedures, technical error, or sample mix-up. False negative results may occur if a virus is present at a level below the analytical limit of detection. Viral nucleic acid may persist in vivo, independent of virus viability. Detection of analyte target(s) does not imply that the corresponding virus(es) are infectious or are the causative agents for clinical symptoms. Recent patient exposure to FluMist or other live attenuated influenza vaccines may cause inaccurate positive results. LABORATORYOrdered By: SYSTEM SYSTEM on 12-02-2023 Basophil, Absolute 0.0 103/mcL Normal 0.0 - 0.2 10^3/mcL AO Workflow SS Basophils/100 WBC (Bld) 0.9 % Normal 0.0 - 2.5 % AO Workflow SS Calcium [Mass/Vol] 8.7 mg/dL Normal 8.4 - 10. 2 mg/dL AO ADM SS Chloride [Moles/Vol] 102 mmol/L Normal 98 - 10 7 mmol/L AO ADM SS CO2 [Moles/Vol] 29 mmol/L Normal 23 - 31 mmol/L AO ADM SS Creatinine [Mass/Vol] 0.72 mg/dL Normal 0.55 - 1.02 mg/dL AO ADM SS Electrolyte Balance 10.0 mEq/L Normal 4.0 - 15 .0 mEq/L AO ADM SS Eosinophil, Absolute 0.1 103/mcL Normal 0.0 - 0 .4 10^3/mcL AO Workflow SS Eosinophils/100 WBC (Bld) 2.4 % Normal 0.0 - 7.0 % AO Workflow SS Erythrocyte distribution width (RBC) [Ratio] 13.3 % Normal 11.5 - 14.5 % AO Workflow SS GFR/1.73 sq M.predicted among blacks MDRD (S/P/Bld) [Vol rate/Area] 94 ml/min/1.73sqm Invalid Interpretation Code AO Chemistry S Comment on above: Interpretive Data: GFR Population mean for , Non- Americans Ages 20-29 = 116 mL/min/1.73 sq.m. Ages 30-39 = 107 mL/min/1.73 sq.m. Ages 40-49 = 99 mL/min/1.73 sq.m. Ages 50-59 = 93 mL/min/1.73 sq.m. Ages 60-69 = 85 mL/min/1.73 sq.m. Ages 70+ = 75 mL/min/1.73 sq.m. Chronic Kidney Disease: Less than 60 mL/min/1.73 square meters End Stage Renal Disease: Less than 15 mL/min/1.73 square meters GFR/1.73 sq M.predicted among non-blacks MDRD (S/P/Bld) [Vol rate/Area] 77 ml/min/1.73sqm Invalid Interpretation Code AO Chemistry S Comment on above: Interpretive Data: GFR Population mean for , Non- Americans Ages 20-29 = 116 mL/min/1.73 sq.m. Ages 30-39 = 107 mL/min/1.73 sq.m. Ages 40-49 = 99 mL/min/1.73 sq.m. Ages 50-59 = 93 mL/min/1.73 sq.m. Ages 60-69 = 85 mL/min/1.73 sq.m. Ages 70+ = 75 mL/min/1.73 sq.m. Chronic Kidney Disease: Less than 60 mL/min/1.73 square meters End Stage Renal Disease: Less than 15 mL/min/1.73 square meters Glucose [Mass/Vol] 103 mg/dL Normal 83 - 110 mg/dL AO ADM SS Hematocrit (Bld) [Volume fraction] 33.2 % Low 37.0 - 47.0 % AO Workflow SS Hemoglobin (Bld) [Mass/Vol] 11.0 G/dL Low 12.0 - 16.0 G/dL AO Workflow SS Lymphocyte, Absolute 0.9 103/mcL Normal 0.8 - 3 .9 10^3/mcL AO Workflow SS Lymphocytes/100 WBC (Bld) 19.6 % Normal 10.0 - 50.0 % AO Workflow SS MCH (RBC) [Entitic mass] 31.6 pg High 27.0 - 31.2 pg AO Workflow SS MCHC 33.2 G/dL Normal 33.0 - 37.0 G/dL AO Workflow SS MCV (RBC) [Entitic vol] 95.2 fL High 80.0 - 94.0 fL AO Workflow SS Monocyte, Absolute 0.3 103/mcL Normal 0.2 - 1.0 10^3/mcL AO Workflow SS Monocytes/100 WBC (Bld) 7.0 % Normal 1.7 - 13.0 % AO Workflow SS Neutrophil, Absolute 3.2 103/mcL Normal 2.9 - 6 .2 10^3/mcL AO Workflow SS Neutrophils/100 WBC (Bld) 70.1 % Normal 37.0 - 80.0 % AO Workflow SS Platelet mean volume (Bld) [Entitic vol] 7.5 fL Normal 7.4 - 10.4 fL AO Workflow SS Platelets (Bld) [#/Vol] 319 103/mcL Normal 130 - 400 10^3/mcL AO Workflow SS Potassium [Moles/Vol] 4.4 mmol/L Normal 3.5 - 5.1 mmol/L AO ADM SS RBC (Bld) [#/Vol] 3.49 106/mcL Low 4.20 - 5.40 10^6/mcL AO Workflow SS Sodium [Moles/Vol] 141 mmol/L Normal 136 - 145 mmol/L AO ADM SS Urea nitrogen [Mass/Vol] 12 mg/dL Normal 7 - 18 mg/dL AO ADM SS Urea nitrogen/Creatinine [Mass ratio] 17 ratio Normal 7 - 27 ratio AO ADM SS WBC (Bld) [#/Vol] 4.5 103/mcL Low 4.6 - 10.8 10^3/mcL AO Workflow SS Basophil percentageOrdered B y: Kelby Aguilar on 11-26-2023 Chloride [Moles/Vol] 100 mmol/L 98-107 [facility] Glucose [Mass/Vol] 117 mg/dL 74-106 [facility] Comment on above: Fasting Glucose resu lt from 100 to 125 mg/dL suggests IMPAIRED HOMEOSTASIS per A.D.A. criteria. Hemoglobin (Bld) [Mass/Vol] 11.2 g/dL 12.0-15.0 [facility] Potassium [Moles/Vol] 3.3 mmol/L 3.5-5.1 [facility] Sodium [Moles/Vol] 135 mmol/L 136-145 [facility] WBC (Bld) [#/Vol] 6.1 10*3/uL 4.4-11.0 [facility] Determination of erythrocyte mean corpuscular volume (MCV)Ordered By: Kelby Aguilar on 11-26-2023 MCV (RBC) [Entitic vol] 98.1 fL 81-99 [facility] Erythrocyte distribution wid th ratioOrdered By: Kelby Aguilar on 11-26-2023 Erythrocyte distribution width (RBC) [Ratio] 13.2 % 11.6-14.6 [facility] Erythrocyte distribution wid th standard deviationOrdered By: Kelby Aguilar on 11-26-2023 Erythrocyte distribution width (RBC) [Entitic vol] 47.1 fL 35.1-43.9 [facility] Hematocrit Auto (Bld) [Volum e fraction]Ordered By: Kelby Aguilar on 11-26-2023 Hematocrit (Bld) [Volume fraction] 35.4 % 37-47 [facility] Laboratory - Chemistry and C hemistry - challengeOrdered By: Kelby Aguilar on 11-26-2023 CO2 [Moles/Vol] 27.0 mmol/L 21.0-32.0 [facility] Urea nitrogen/Creatinine [Mass ratio] 17.1 mg/mg 10-20 [facility] Laboratory - Hematology and Cell countsOrdered By: Kelby Aguilar on 11-26-2023 MCH (RBC) [Entitic mass] 31.0 pg 27.0-32.0 [facility] MCHC (RBC) [Mass/Vol] 31.6 g/dL 32-36 [facility] Platelet mean volume (Bld) [Entitic vol] 10.3 fL 6.2-12.0 [facility] Platelets (Bld) [#/Vol] 215 10*3/uL 150-450 [facility] No Panel InformationOrdered By: Kelby Aguilar on 11-26-2023 Estimated Creatinine Clearance Calc 48.91 ml/min [facility] Estimated GFR (MDRD) Amer 102 mL/min >60 [facility] Comment on above: GFR Calc Estimated GFR (MDRD) Non-Af Amer 84 mL/min >60 [facility] Comment on above: Non- GFR Calc RBC Auto (Bld) [#/Vol]Ordere d By: Kelby Aguilar on 11-26-2023 RBC (Bld) [#/Vol] 3.61 10*6/uL 4.2-5.4 [facility] Serum or plasma calcium nina urement (mass/volume)Ordered By: Kelby Aguilar on 11-26-2023 Calcium [Mass/Vol] 8.6 mg/dL 8.5-10.1 [facility] Serum or plasma creatinine m easurement (mass/volume)Ordered By: Kelby Aguilar on 11-26-2023 Creatinine [Mass/Vol] 0.70 mg/dL 0.55-1.02 [facility] Comment on above: The validity of the calculated GFR & GFRAA in patients over 70 years has not been determined. Clinical correlation is essential. Serum or plasma urea nitroge n measurement (mass/volume)Ordered By: Kelby Aguilar on 11-26-2023 Urea nitrogen [Mass/Vol] 12 mg/dL 7-18 [facility] Thin prep Papanicolaou smear with manual screeningOrdered By: Kelby Aguilar on 11-26-2023 Thin prep Papanicolaou smear with manual screening 8 5-15 [facility] Laboratory - Chemistry and C hemistry - challengeOrdered By: Kelby Aguilar on 11-25-2023 CK [Catalytic activity/Vol] 1138 U/L 26-192 [facility] Absolute lymphocyte countOrd ered By: Smith Ho on 11-23-2023 Lymphocytes Auto (Unsp spec) [#/Vol] 1.14 10*3/uL 0.83-4.51 [facility] Automated lymphocyte count a s percentage of total leukocytesOrdered By: Smith Ho on 11-23-2023 Lymphocytes/100 WBC Auto (Unsp spec) 12.9 % 19-41 [facility] Basophil percentageOrdered B y: Smith Ho on 11-23-2023 Basophil percentage 10-25 SEEN /hpf 0-5 [facility] Basophils/100 WBC (Bld) 0.5 % 0-1 [facility] Chloride [Moles/Vol] 107 mmol/L 98-107 [facility] Eosinophils/100 WBC (Bld) 0.1 % 0-5 [facility] Glucose [Mass/Vol] 122 mg/dL 74-106 [facility] Comment on above: Fasting Glucose resu lt from 100 to 125 mg/dL suggests IMPAIRED HOMEOSTASIS per A.D.A. criteria. Hemoglobin (Bld) [Mass/Vol] 12.3 g/dL 12.0-15.0 [facility] Monocytes/100 WBC (Bld) 9.0 % 0-10 [facility] Neutrophils (Bld) [#/Vol] 6.8 10*3/uL 2.0-7.7 [facility] Neutrophils/100 WBC (Bld) 77.0 % 47-70 [facility] Potassium [Moles/Vol] 3.8 mmol/L 3.5-5.1 [facility] Sodium [Moles/Vol] 141 mmol/L 136-145 [facility] WBC (Bld) [#/Vol] 8.8 10*3/uL 4.4-11.0 [facility] Bilirubin Test strip Ql (U)O rdered By: Smith Ho on 11-23-2023 Bilirubin Ql (U) Negative Negative [facility] Culture, urineOrdered By: Deandre Ho on 11-23-2023 Bacteria identified Cx Nom (U) Presumptive E. coli [facility] Determination of erythrocyte mean corpuscular volume (MCV)Ordered By: Smith Ho on 11-23-2023 MCV (RBC) [Entitic vol] 96.9 fL 81-99 [facility] Erythrocyte distribution wid th ratioOrdered By: Smith Ho on 11-23-2023 Erythrocyte distribution width (RBC) [Ratio] 13.3 % 11.6-14.6 [facility] Erythrocyte distribution wid th standard deviationOrdered By: Smith Ho on 11-23-2023 Erythrocyte distribution width (RBC) [Entitic vol] 47.7 fL 35.1-43.9 [facility] Hematocrit Auto (Bld) [Volum e fraction]Ordered By: Smith Ho on 11-23-2023 Hematocrit (Bld) [Volume fraction] 37.9 % 37-47 [facility] Immature granulocytes/100 WB C Auto (Bld)Ordered By: Smith Ho on 11-23-2023 Immature granulocytes/100 WBC (Bld) 0.500 % 0.0-0.9 [facility] Comment on above: IG% - Immature Granu locytes (promyelocytes, myelocytes and metamyelocytes) > 1% indicates that a LEFT SHIFT is Present. Ketones Test strip Ql (U)Ord ered By: Smith Ho on 11-23-2023 Ketones Ql (U) 5 mg/dl Negative [facility] Laboratory - Chemistry and C hemistry - challengeOrdered By: Smith Ho on 11-23-2023 CK [Catalytic activity/Vol] 2446 U/L 26-192 [facility] CO2 [Moles/Vol] 27.0 mmol/L 21.0-32.0 [facility] Urea nitrogen/Creatinine [Mass ratio] 24.1 mg/mg 10-20 [facility] Laboratory - Hematology and Cell countsOrdered By: Smith Ho on 11-23-2023 MCH (RBC) [Entitic mass] 31.5 pg 27.0-32.0 [facility] MCHC (RBC) [Mass/Vol] 32.5 g/dL 32-36 [facility] Nucleated RBC/100 WBC (Bld) [Ratio] 0 % 0-5 [facility] Platelet mean volume (Bld) [Entitic vol] 9.9 fL 6.2-12.0 [facility] Platelets (Bld) [#/Vol] 192 10*3/uL 150-450 [facility] Mucus LM Ql (Urine sed)Order ed By: Smith Ho on 11-23-2023 Mucus Ql (Urine sed) 1+ /hpf [facility] Nitrite Test strip Ql (U)Ord ered By: Smith Ho on 11-23-2023 Nitrite Ql (U) Positive Negative [facility] No Panel InformationOrdered By: Smith Ho on 11-23-2023 Urine RBC 0-5 SEEN /hpf 0-5 [facility] Estimated Creatinine Clearance Calc 50.43 ml/min [facility] Estimated GFR (MDRD) Amer 95 mL/min >60 [facility] Comment on above: GFR Calc Estimated GFR (MDRD) Non-Af Amer 79 mL/min >60 [facility] Comment on above: Non- GFR Calc Protein Test strip Ql (U)Ord ered By: Smith Ho on 11-23-2023 Protein Ql (U) 30 mg/dl Negative [facility] RBC Auto (Bld) [#/Vol]Ordere d By: Smith Ho on 11-23-2023 RBC (Bld) [#/Vol] 3.91 10*6/uL 4.2-5.4 [facility] Serum or plasma calcium nina urement (mass/volume)Ordered By: Smith Ho on 11-23-2023 Calcium [Mass/Vol] 9.4 mg/dL 8.5-10.1 [facility] Serum or plasma creatinine m easurement (mass/volume)Ordered By: Smith Ho on 11-23-2023 Creatinine [Mass/Vol] 0.75 mg/dL 0.55-1.02 [facility] Comment on above: The validity of the calculated GFR & GFRAA in patients over 70 years has not been determined. Clinical correlation is essential. Serum or plasma thyroid stim ulating hormone (TSH) measurement (units/volume)Ordered By: Kelby Aguilar on 11-23-2023 TSH Qn 1.59 uIU/mL 0.358-3.74 [facility] Serum or plasma urea nitroge n measurement (mass/volume)Ordered By: Smith Ho on 11-23-2023 Urea nitrogen [Mass/Vol] 18 mg/dL 7-18 [facility] Squamous epithelial cells de tection in urine sediment by light microscopyOrdered By: Smith Ho on 11-23-2023 Epithelial cells.squamous LM Ql (Urine sed) 0-5 SEEN /hpf 5-10 [facility] Thin prep Papanicolaou smear with manual screeningOrdered By: Smith Ho on 11-23-2023 Thin prep Papanicolaou smear with manual screening 7 5-15 [facility] Urine blood detectionOrdered By: Smith Ho on 11-23-2023 RBC Ql (U) 250 /ul Negative [facility] Urine clarityOrdered By: Migue Ho on 11-23-2023 Clarity (U) Cloudy Clear [facility] Urine color determinationOrd ered By: Smith Ho on 11-23-2023 Color (U) Yellow Yellow [facility] Urine glucose detectionOrder ed By: Smith Ho on 11-23-2023 Glucose Ql (U) Normal mg/dl Normal [facility] Urine leukocyte esterase det ection by dipstickOrdered By: Smith Ho on 11-23-2023 Leukocyte esterase Test strip Ql (U) 500 /ul Negative [facility] Urine pHOrdered By: Smith bryson on 11-23-2023 pH (U) 6.0 [pH] 5.0 - 8.0 [facility] Urine sediment bacteria coun t by microscopy (number/high power field)Ordered By: Smith Ho on 11-23-2023 Bacteria LM.HPF (Urine sed) [#/Area] 4 /[HPF] None Seen [facility] Urine specific gravity measu rementOrdered By: Smith Ho on 11-23-2023 Specific gravity (U) [Rel density] 1.010 1.002-1.03 0 [facility] Urine urobilinogen measureme ntOrdered By: Smith Ho on 11-23-2023 Urobilinogen Ql (U) Normal mg/dl Normal [facility] CNPNon 08-22-2023 CNPN Normal [facility] CBC W Auto Differential pane l (Bld)on 08-18-2023 Basophils (Bld) [#/Vol] 0.08 10*3/uL Normal <0.11 [facility] Comment on above: Order Comment: Speci men Type: BLOOD SPECIMENOrdering Facility: [facility] Address: [address] [place] [address] Performed By: #### 5 7021-8 ####[facility] [id number] [place] [address] [place] Basophils/100 WBC (Bld) 1.3 % Normal [facility] Comment on above: Order Comment: Speci men Type: BLOOD SPECIMENOrdering Facility: [facility] Address: [address] [place] [address] Performed By: #### 5 7021-8 ####[facility] [id number] [place] [address] [place] Differential cell count method Nom (Bld) Auto Normal [facility] Comment on above: Order Comment: Speci men Type: BLOOD SPECIMENOrdering Facility: [facility] Address: [address] [place] [address] Performed By: #### 5 7021-8 ####[facility] [id number] [place] [address] [place] Eosinophils (Bld) [#/Vol] 0.21 10*3/uL Normal <0.46 [facility] Comment on above: Order Comment: Speci men Type: BLOOD SPECIMENOrdering Facility: [facility] Address: [address] [place] [address] Performed By: #### 5 7021-8 ####[facility] [id number] [place] [address] [place] Eosinophils/100 WBC (Bld) 3.4 % Normal [facility] Comment on above: Order Comment: Speci men Type: BLOOD SPECIMENOrdering Facility: [facility] Address: [address] [place] [address] Performed By: #### 5 7021-8 ####[facility] [id number] [place] [address] [place] Erythrocyte distribution width (RBC) [Ratio] 15.9 % High 11.5-15.0 [facility] Comment on above: Order Comment: Speci men Type: BLOOD SPECIMENOrdering Facility: [facility] Address: [address] [place] [address] Performed By: #### 5 7021-8 ####[facility] [id number] [place] [address] [place] Hematocrit (Bld) [Volume fraction] 40.1 % Normal 36.0-46.0 [facility] Comment on above: Order Comment: Speci men Type: BLOOD SPECIMENOrdering Facility: [facility] Address: [address] [place] [address] Performed By: #### 5 7021-8 ####[facility] [id number] [place] [address] [place] Hemoglobin (Bld) [Mass/Vol] 12.7 g/dL Normal 11.5-15.5 [facility] Comment on above: Order Comment: Speci men Type: BLOOD SPECIMENOrdering Facility: [facility] Address: [address] [place] [address] Performed By: #### 5 7021-8 ####[facility] [id number] [place] [address] [place] Immature granulocytes (Bld) [#/Vol] 10*3/uL Normal <0.10 [facility] Comment on above: Order Comment: Speci men Type: BLOOD SPECIMENOrdering Facility: [facility] Address: [address] [place] [address] Performed By: #### 5 7021-8 ####[facility] [id number] [place] [address] [place] Immature granulocytes/100 WBC (Bld) 0.2 % Normal [facility] Comment on above: Order Comment: Speci men Type: BLOOD SPECIMENOrdering Facility: [facility] Address: [address] [place] [address] Performed By: #### 5 7021-8 ####[facility] [id number] [place] [address] [place] Lymphocytes (Bld) [#/Vol] 2.16 10*3/uL Normal 1.00-4.00 [facility] Comment on above: Order Comment: Speci men Type: BLOOD SPECIMENOrdering Facility: [facility] Address: [address] [place] [address] Performed By: #### 5 7021-8 ####[facility]ENTERWNCLIA [id number] [place] [address] [place] Lymphocytes/100 WBC (Bld) 35.0 % Normal [facility] Comment on above: Order Comment: Speci men Type: BLOOD SPECIMENOrdering Facility: [facility] Address: [address] [place] [address] Performed By: #### 5 7021-8 ####[facility] RES[facility]ARCH INSTITUTEANYILIA [id number] [place] [address] [place] MCH (RBC) [Entitic mass] 31.5 pg Normal 26.0-34.0 [facility] Comment on above: Order Comment: Speci men Type: BLOOD SPECIMENOrdering Facility: [facility] Address: [address] [place] [address] Performed By: #### 5 7021-8 ####[facility] RESEARCH INSTITUTEANYILIA [id number] [place] [address] [place] MCHC (RBC) [Mass/Vol] 31.7 g/dL Normal 30.5-36.0 [facility] Comment on above: Order Comment: Speci men Type: BLOOD SPECIMENOrdering Facility: [facility] Address: [address] [place] [address] Performed By: #### 5 7021-8 ####[facility] RES[facility] INSTITUTEANYILIA [id number] [place] [address] [place] MCV (RBC) [Entitic vol] 99.5 fL Normal 80.0-100.0 [facility] Comment on above: Order Comment: Speci men Type: BLOOD SPECIMENOrdering Facility: [facility] Address: [address] [place] [address] Performed By: #### 5 7021-8 ####[facility] RESEARCH INSTITUTENCLIA [id number] [place] [address] [place] Monocytes (Bld) [#/Vol] 0.47 10*3/uL Normal <0.87 [facility] Comment on above: Order Comment: Speci men Type: BLOOD SPECIMENOrdering Facility: [facility] Address: [address] [place] [address] Performed By: #### 5 7021-8 ####[facility] [id number] [place] [address] [place] Monocytes/100 WBC (Bld) 7.6 % Normal [facility] Comment on above: Order Comment: Speci men Type: BLOOD SPECIMENOrdering Facility: [facility] Address: [address] [place] [address] Performed By: #### 5 7021-8 ####[facility] [id number] [place] [address] [place] Neutrophils (Bld) [#/Vol] 3.24 10*3/uL Normal 1.45-7.50 [facility] Comment on above: Order Comment: Speci men Type: BLOOD SPECIMENOrdering Facility: [facility] Address: [address] [place] [address] Performed By: #### 5 7021-8 ####[facility] [id number] [place] [address] [place] Neutrophils/100 WBC (Bld) 52.5 % Normal [facility] Comment on above: Order Comment: Speci men Type: BLOOD SPECIMENOrdering Facility: [facility] Address: [address] [place] [address] Performed By: #### 5 7021-8 ####[facility] [id number] [place] [address] [place] Nucleated RBC (Bld) [#/Vol] 10*3/uL Normal <0.01 [facility] Comment on above: Order Comment: Speci men Type: BLOOD SPECIMENOrdering Facility: [facility] Address: [address] [place] [address] Performed By: #### 5 7021-8 ####[facility] MGTHOUSAND OAKSLAILAA [id number] [place] [address] [place] Nucleated RBC/100 WBC (Bld) [Ratio] 0.0 /100 WBC Normal [facility] Comment on above: Order Comment: Speci men Type: BLOOD SPECIMENOrdering Facility: [facility] Address: [address] [place] [address] Performed By: #### 5 7021-8 ####[facility] RESEARCH INSTITUTENCDavid [id number] [place] [address] [place] Platelet mean volume (Bld) [Entitic vol] 10.0 fL Normal 9.0-12.7 [facility] Comment on above: Order Comment: Speci men Type: BLOOD SPECIMENOrdering Facility: [facility] Address: [address] [place] [address] Performed By: #### 5 7021-8 ####[facility] [id number] [place] [address] [place] Platelets (Bld) [#/Vol] 272 10*3/uL Normal 150-400 [facility] Comment on above: Order Comment: Speci men Type: BLOOD SPECIMENOrdering Facility: [facility] Address: [address] [place] [address] Performed By: #### 5 7021-8 ####[facility] [id number] [place] [address] [place] RBC (Bld) [#/Vol] 4.03 10*6/uL Normal 3.90-5.20 [facility] Comment on above: Order Comment: Speci men Type: BLOOD SPECIMENOrdering Facility: [facility] Address: [address] [place] [address] Performed By: #### 5 7021-8 ####[facility] RESEARCH INSTITUTENCA [id number] [place] [address] [place] WBC (Bld) [#/Vol] 6.17 10*3/uL Normal 3.70-11.00 [facility] Comment on above: Order Comment: Speci men Type: BLOOD SPECIMENOrdering Facility: [facility] Address: [address] [place] [address] Performed By: #### 5 7021-8 ####[facility] [id number] [place] [address] [place] CNOVon 08-18-2023 CNOV Normal [facility] Cancer Ag125 SerPl-aCncon Cancer Ag 125 Qn 6 [arb'U]/mL Normal <39 [facility] Comment on above: Order Comment: Speci men Type: BLOOD SPECIMENOrdering Facility: [facility] Address: [address] [place] [address] Result Comment: CA 1 25 test methodology used is the Electrochemiluminescence Immunoassay by [employer]. Results obtained with different methods or kits cannot be used interchangeably.The reference interval is based on the 95th percentile of 240 apparently healthy premenopausal and postmenopausal women. At a cutoff value of 65 U/mL, the test sensitivity to distinguish ovarian carcinoma (FIGO stage I to IV) versus benign gynecological disease is 79%, with a specificity of 82%.Reference: Cancer Antigen 125 (CA 125 II) [package insert V 1.0 [place]]. [employer], [place], [place] (May 2015) Performed By: #### 3 016-3, LIPNF, 42891-9 ####[facility] LABCLIA [id number] [facility] [id number] [place] [address] [place]#### 40708-5 ####[facility] RESEARCH INSTITUTENCLIA [id number] [place] [address] [place] Comprehensive metabolic 2000 panelon 08-18-2023 Albumin [Mass/Vol] 4.9 g/dL Normal 3.9-4.9 [facility] Comment on above: Order Comment: Speci men Type: BLOOD SPECIMENOrdering Facility: [facility] Address: [address] [place] [address] Performed By: #### 3 016-3, LIPNF, 15461-3 ####[facility] LABCLIA [id number] [place] [address] [place]#### 99276-2 ####[facility] MILLTOWNCLIA [id number] [place] [address] [place] ALP [Catalytic activity/Vol] 108 U/L Normal 34-123 [facility] Comment on above: Order Comment: Speci men Type: BLOOD SPECIMENOrdering Facility: [facility] Address: [address] [place] [address] Performed By: #### 3 016-3, LIPNF, 67064-7 ####[facility] LABCLIA [id number] [place] [address] [place]#### 13445-1 ####[facility] MILLWNCLIA [id number] [place] [address] [place] ALT [Catalytic activity/Vol] 17 U/L Normal 7-38 [facility] Comment on above: Order Comment: Speci men Type: BLOOD SPECIMENOrdering Facility: [facility] Address: [address] [place] [address] Performed By: #### 3 016-3, LIPNF, 48978-4 ####[facility] LABCLIA [id number] [place] [address] [place]#### 83562-9 ####[facility] MILLTOWNCLIA [id number] [place] [address] [place] Anion gap [Moles/Vol] 12 mmol/L Normal 9-18 [facility] Comment on above: Order Comment: Speci men Type: BLOOD SPECIMENOrdering Facility: [facility] Address: [address] [place] [address] Performed By: #### 3 016-3, LIPNF, 90778-3 ####[facility] LABCLIA [id number] [place] [address] [place]#### 22438-6 ####[facility] MILLTOWNCLIA [id number] [place] [address] [place] AST [Catalytic activity/Vol] 25 U/L Normal 13-35 [facility] Comment on above: Order Comment: Speci men Type: BLOOD SPECIMENOrdering Facility: [facility] Address: [address] [place] [address] Performed By: #### 3 016-3, LIPNF, 86189-7 ####[facility] LABCLIA [id number] [place] [address] [place]#### 47824-7 ####[facility] MILLWNCLIA [id number] [place] [address] [place] Bilirubin [Mass/Vol] 0.4 mg/dL Normal 0.2-1.3 [facility] Comment on above: Order Comment: Speci men Type: BLOOD SPECIMENOrdering Facility: [facility] Address: [address] [place] [address] Performed By: #### 3 016-3, LIPNF, 80465-0 ####[facility] LABCLIA [id number] [place] [address] [place]#### 55014-8 ####[facility] MILLTOWNCLIA [id number] [place] [address] [place] Calcium [Mass/Vol] 9.8 mg/dL Normal 8.5-10.2 [facility] Comment on above: Order Comment: Speci men Type: BLOOD SPECIMENOrdering Facility: [facility] Address: [address] [place] [address] Performed By: #### 3 016-3, LIPNF, 33663-5 ####[facility] LABCLIA [id number] [place] [address] [place]#### 01187-9 ####[facility] MILLTOWNCLIA [id number] [place] [address] [place] Chloride [Moles/Vol] 99 mmol/L Normal 97-105 [facility] Comment on above: Order Comment: Speci men Type: BLOOD SPECIMENOrdering Facility: [facility] Address: [address] [place] [address] Performed By: #### 3 016-3, LIPNF, 84553-3 ####[facility] LABCLIA [id number] [place] [address] [place]#### 76135-2 ####[facility] MILLWNCLIA [id number] [place] [address] [place] CO2 [Moles/Vol] 26 mmol/L Normal 22-30 [facility] Comment on above: Order Comment: Speci men Type: BLOOD SPECIMENOrdering Facility: [facility] Address: [address] [place] [address] Performed By: #### 3 016-3, LIPNF, 28450-4 ####[facility] LABCLIA [id number] [place] [address] [place]#### 28579-5 ####[facility] MILLTOWNCLIA [id number] [place] [address] [place] Creatinine [Mass/Vol] 0.72 mg/dL Normal 0.58-0.96 [facility] Comment on above: Order Comment: Speci men Type: BLOOD SPECIMENOrdering Facility: [facility] Address: [address] [place] [address] Performed By: #### 3 016-3, LIPNF, 22296-3 ####[facility] LABCLIA [id number] [place] [address] [place]#### 48958-4 ####[facility] [id number] [place] [address] [place] Creatinine and Glomerular filtration rate.predicted panel (S/P/Bld) 83 mL/min/1.73m??? Normal >=60 [facility] Comment on above: Order Comment: Zay men Type: BLOOD SPECIMENOrdering Facility: [facility] Address: [address] [place] [address] Result Comment: Marlyn mated Glomerular Filtration Rate (eGFR) is calculated using the 2020 CKD-EPI creatinine equation. This equation utilizes serum creatinine, sex, and age as parameters. The creatinine assay has traceable calibration to isotope dilution-mass spectrometry. Refer to KDIGO guidelines for clinical interpretation. In patients with unstable renal function, e.g. those with acute kidney injury, the eGFR may not accurately reflect actual GFR. Performed By: #### 3 016-3, LIPNF, 26307-6 ####[facility] LABCLIA [id number] [place] [address] [place]#### 46234-9 ####[facility] [id number] [place] [address] [place] Glucose [Mass/Vol] 112 mg/dL High 74-99 [facility] Comment on above: Order Comment: Zay men Type: BLOOD SPECIMENOrdering Facility: [facility] Address: [address] [place] [address] Result Comment: The [place] [employer] (ADA) provides guidance for cutoff values for fasting glucose and random glucose. The ADA defines fasting as no caloric intake for at least 8 hours. Fasting plasma glucose results between 100 to 125 mg/dL indicate increased risk for diabetes (prediabetes).Fasting plasma glucose results greater than or equal to 126 mg/dL meet the criteria for diagnosis of diabetes. In the absence of unequivocal hyperglycemia, results should be confirmed by repeat testing. In a patient with classic symptoms of hyperglycemia or hyperglycemic crisis, random plasma glucose results greater than or equal to 200 mg/dL meet the criteria for diagnosis of diabetes.Reference: Standards of Medical Care in Diabetes 2016, [place] [employer]. Diabetes Care. 2016.39(Suppl 1). Performed By: #### 3 016-3, LIPNF, 49656-6 ####[facility] LABCLIA [id number] [place] [address] [place]#### 35670-3 ####[facility] MILLTOWNCLIA [id number] [place] [address] [place] Potassium [Moles/Vol] 4.3 mmol/L Normal 3.7-5.1 [facility] Comment on above: Order Comment: Speci men Type: BLOOD SPECIMENOrdering Facility: [facility] Address: [address] [place] [address] Performed By: #### 3 016-3, LIPNF, 80554-6 ####[facility] LABCLIA [id number] [place] [address] [place]#### 60076-2 ####[facility] MILLTOWNCLIA [id number] [place] [address] [place] Protein [Mass/Vol] 8.7 g/dL High 6.3-8.0 [facility] Comment on above: Order Comment: Speci men Type: BLOOD SPECIMENOrdering Facility: [facility] Address: [address] [place] [address] Performed By: #### 3 016-3, LIPNF, 85238-2 ####[facility] LABCLIA [id number] [place] [address] [place]#### 26126-4 ####[facility] HEALTHLIA [id number] [place] [address] [place] Sodium [Moles/Vol] 137 mmol/L Normal 136-144 [facility] Comment on above: Order Comment: Speci men Type: BLOOD SPECIMENOrdering Facility: [facility] Address: [address] [place] [address] Performed By: #### 3 016-3, LIPNF, 94772-1 ####[facility] LABCLIA [id number] [place] [address] [place]#### 73355-6 ####[facility] [id number] [place] [address] [place] Urea nitrogen [Mass/Vol] 18 mg/dL Normal 7-21 [facility] Comment on above: Order Comment: Speci men Type: BLOOD SPECIMENOrdering Facility: [facility] Address: [address] [place] [address] Performed By: #### 3 016-3, LIPNF, 16163-5 ####[facility] LABCLIA [id number] [place] [address] [place]#### 94543-6 ####[facility] [id number] [place] [address] [place] LIPID PANEL, NONFASTINGon Cholesterol [Mass/Vol] 201 mg/dL High <200 [facility] Comment on above: Order Comment: Speci men Type: BLOOD SPECIMENOrdering Facility: [facility] Address: [address] [place] [address] Result Comment: <200 mg/dL, Desirable 200-239 mg/dL, Borderline high>239 mg/dL, High Performed By: #### 3 016-3, LIPNF, 25718-8 ####[facility] LABCLIA [id number] [place] AV[id number]#### 50701-9 ####[facility] MILLTOWNCLIA [id number] [place] [address] [place] HDL CHOLESTEROL, NF 81 mg/dL Normal >39 [facility] Comment on above: Order Comment: Speci men Type: BLOOD SPECIMENOrdering Facility: [facility] Address: [address] [place] [address] Result Comment: 40-5 9 mg/dL, Acceptable>59 mg/dL, High: Negative risk factor for coronary heart disease<40 mg/dL, Low: Positive risk factor for coronary heart disease Performed By: #### 3 016-3, LIPNF, 25002-7 ####[facility] LABCLIA [id number] [address] [place]#### 29715-1 ####[facility]UT[facility]CLIA [id number] [place] [address] [place] LDL CHOLESTEROL, NF 96 mg/dL Normal <100 [facility] Comment on above: Order Comment: Speci men Type: BLOOD SPECIMENOrdering Facility: [facility] Address: [address] [place] [address] Result Comment: <100 mg/dL, Optimal 100-129 mg/dL, Near optimal/above optimal 130-159 mg/dL, Borderline high 160-189 mg/dL, High>189 mg/dL, Very highSecondary prevention optimal LDL Cholesterol levels are recommended to be < 70 mg/dL Performed By: #### 3 016-3, LIPNF, 79650-6 ####[facility] LABCLIA [id number] [place] [address] [place]#### 37963-9 ####[facility] MILLTOWNCLIA [id number] [place] [address] [place] LDL/HDL RATIO, NF 1.19 mg/dL Normal <2.54 [facility] Comment on above: Order Comment: Zay sandoval Type: BLOOD SPECIMENOrdering Facility: [facility] Address: [address] [place] [address] Result Comment: Kapil raymond:1. National Cholesterol Education Program ATP III Guideline At-A-Glance Quick Desk Reference: National Heart, Lung, and Blood [place]. National Institutes of Health. 2001: NIH Publication No. 01-3305.2. An International Atherosclerosis Society position paper: global recommendations for the management of dyslipidemia: executive summary, Atherosclerosis. 2014: 232(2):410-413. Performed By: #### 3 016-3, LIPNF, 36820-2 ####[facility] LABCLIA [id number] [place] [address] [place]#### 77081-1 ####[facility] [id number] [address] [place] NON HDL CHOL, NF 120 mg/dL Normal <130 [facility] Comment on above: Order Comment: Zay sandoval Type: BLOOD SPECIMENOrdering Facility: [facility] Address: [address] [place] [address] Result Comment: <130 mg/dL, Optimal 130-159 mg/dL, Near optimal/above optimal 160-189 mg/dL, Borderline high 190-219 mg/dL, High>219 mg/dL, Very highSecondary prevention optimal non HDL Cholesterol levels are recommended to be <100 mg/dL Performed By: #### 3 016-3, LIPNF, 92636-0 ####[facility] LABCLIA [id number] [place] [address] [place]#### 49486-4 ####[facility] [id number] [address] [place] T CHOL/HDL RATIO NF 2.48 mg/dL Normal <5.10 [facility] Comment on above: Order Comment: Zay men Type: BLOOD SPECIMENOrdering Facility: [facility] Address: [address] [place] [address] Performed By: #### 3 016-3, LIPNF, 50859-1 ####[facility] LABCLIA [id number] [place] [address] [place]#### 40562-7 ####[facility] MILLTOWNCLIA [id number] [place] [address] [place] TRIGLYCERIDES, NF 118 mg/dL Normal <150 [facility] Comment on above: Order Comment: Speci men Type: BLOOD SPECIMENOrdering Facility: [facility] Address: [address] [place] [address] Result Comment: <150 mg/dL, Normal 150-199 mg/dL, Borderline high 200-499 mg/dL, High>499 mg/dL, Very high Performed By: #### 3 016-3, LIPNF, 76822-1 ####[facility] LABCLIA [id number] [place] [address] [place]#### 27754-9 ####[facility] INSTITUTENCLIA [id number] [place] [address] [place] VLDL CHOLESTEROL, NF 24 mg/dL Normal <30 [facility] Comment on above: Order Comment: Speci men Type: BLOOD SPECIMENOrdering Facility: [facility] Address: [address] [place] [address] Performed By: #### 3 016-3, LIPNF, 75759-1 ####[facility] LABCLIA [id number] [place] [address] [place]#### 21236-9 ####[facility] MILLTOWNCLIA [id number] [place] [address] [place] Magnesium [facility]on 08-18 Magnesium [Mass/Vol] 2.2 mg/dL Normal 1.7-2.3 [facility] Comment on above: Order Comment: Speci men Type: BLOOD SPECIMENOrdering Facility: [facility] Address: [address] [place] [address] Performed By: #### 1 9123-9 ####[facility] H[facility]ITALFARZANA [id number] [place] [address] [place] PAIN PANEL, UR QUANTon 08-18 3-Icaylnjxvd-2,5-Dimet hyl-3,3-Diphenylpyrrol idine (EDDP) Confirm (U) [Mass/Vol] <6 Normal <6 [facility] Comment on above: Order Comment: Speci men Type: URINE SPECIMENOrdering Facility: [facility] Address: [address] [place] [address] Result Comment: EDDP is a metabolite of methadone. Performed By: #### L [id number] ####[facility] LABIA [id number] [address] [place] 6-Monoacetylmorphine (6-SUNNI) (U) [Mass/Vol] <5 Normal <5 [facility] Comment on above: Order Comment: Speci men Type: URINE SPECIMENOrdering Facility: [facility] Address: [address] [place] [address] Result Comment: 6-MA M (6-monoacetylmorphine, also known as 6-acetylmorphine) is a unique metabolite of heroin. Presence of 6-SUNNI indicates use of heroin. 6-SUNNI is further metabolized to morphine and absence of 6-SUNNI does not rule out the use of heroin. Performed By: #### L [id number] ####[facility] LABIA [id number] [place] [address] [place] Amphetamine Confirm (U) [Mass/Vol] <5 Normal <5 [facility] Comment on above: Order Comment: Speci men Type: URINE SPECIMENOrdering Facility: [facility] Address: [address] [place] [address] Performed By: #### L [id number] ####[facility] [id number] [place] [address] [place] Benzoylecgonine Confirm (U) [Mass/Vol] <24 Normal <24 [facility] Comment on above: Order Comment: Speci men Type: URINE SPECIMENOrdering Facility: [facility] Address: [address] [place] [address] Result Comment: Kenneth oylecgonine is a metabolite of cocaine. Performed By: #### L [id number] ####[facility] [id number] [place] [address] [place] Buprenorphine (U) [Mass/Vol] <20 Normal <20 [facility] Comment on above: Order Comment: Speci men Type: URINE SPECIMENOrdering Facility: [facility] Address: [address] [place] [address] Performed By: #### L [id number] ####[facility] [id number] [place] [address] [place] Cannabinoids Confirm (U) [Mass/Vol] <16 Normal <16 [facility] Comment on above: Order Comment: Speci men Type: URINE SPECIMENOrdering Facility: [facility] Address: [address] [place] [address] Result Comment: Tetr ahydrocannabinol carboxylic acid (THCA) is a metabolite of cnwls-8-tbxocnrywdnoxwvysjgw which is the main active component of marijuana. Performed By: #### L [id number] ####[facility] [id number] [place] [address] [place] Codeine Confirm (U) [Mass/Vol] <11 Normal <11 [facility] Comment on above: Order Comment: Speci men Type: URINE SPECIMENOrdering Facility: [facility] Address: [address] [place] [address] Performed By: #### L [id number] ####[facility] LABIA [id number] [place] [address] [place] Dihydrocodeine Confirm (U) [Mass/Vol] <5 Normal <5 [facility] Comment on above: Order Comment: Speci men Type: URINE SPECIMENOrdering Facility: [facility] Address: [address] [place] [address] Performed By: #### L [id number] ####[facility] LABIA [id number] [place] [address] [place] fentaNYL Confirm (U) [Mass/Vol] <6 Normal <6 [facility] Comment on above: Order Comment: Speci men Type: URINE SPECIMENOrdering Facility: [facility] Address: [address] [place] [address] Performed By: #### L [id number] ####[facility] [id number] [place] [address] [place] HYDROcodone Confirm (U) [Mass/Vol] <8 Normal <8 [facility] Comment on above: Order Comment: Speci men Type: URINE SPECIMENOrdering Facility: [facility] Address: [address] [place] [address] Result Comment: Hydr ocodone is a metabolite of dihydrocodeine. Performed By: #### L [id number] ####[facility] LABIA [id number] [place] [address] [place] HYDROmorphone Confirm (U) [Mass/Vol] <5 Normal <5 [facility] Comment on above: Order Comment: Speci men Type: URINE SPECIMENOrdering Facility: [facility] Address: [address] [place] [address] Result Comment: Hydr omorphone is a metabolite of hydrocodone. Performed By: #### L [id number] ####[facility] LABCLIA [id number] [place] [address] [place] Methadone Confirm (U) [Mass/Vol] <16 Normal <16 [facility] Comment on above: Order Comment: Speci men Type: URINE SPECIMENOrdering Facility: [facility] Address: [address] [place] [address] Performed By: #### L [id number] ####[facility] [id number] [place] [address] [place] Methamphetamine Confirm (U) [Mass/Vol] <8 Normal <8 [facility] Comment on above: Order Comment: Speci men Type: URINE SPECIMENOrdering Facility: [facility] Address: [address] [place] [address] Performed By: #### L [id number] ####[facility] [id number] [address] [place] OF [facility] Morphine Confirm (U) [Mass/Vol] <10 Normal <10 [facility] Comment on above: Order Comment: Speci men Type: URINE SPECIMENOrdering Facility: [facility] Address: [address] [place] [address] Result Comment: Morp shahida is a metabolite of codeine and heroin. Performed By: #### L [id number] ####[facility] [id number] [address] [place] Norbuprenorphine (U) [Mass/Vol] <20 Normal <20 [facility] Comment on above: Order Comment: Speci men Type: URINE SPECIMENOrdering Facility: [facility] Address: [address] [place] [address] Result Comment: Norb uprenorphine is the primary active metabolite of buprenorphine. Performed By: #### L [id number] ####[facility] [id number] [address] [place] Norfentanyl Confirm (U) [Mass/Vol] <6 Normal <6 [facility] Comment on above: Order Comment: Speci men Type: URINE SPECIMENOrdering Facility: [facility] Address: [address] [place] [address] Result Comment: Norf entanyl is a metabolite of fentanyl. Performed By: #### L [id number] ####[facility] LABIA [id number] [place] [address] [place] Nortramadol (U) [Mass/Vol] >5000 High <20 [facility] Comment on above: Order Comment: Speci men Type: URINE SPECIMENOrdering Facility: [facility] Address: [address] [place] [address] Result Comment: O-De smethyltramadol is a metabolite of tramadol and its presence indicates use of a tramadol containing drug (Ultram). Performed By: #### L [id number] ####[facility] [id number] [place] [address] [place] NOTE,UR PAIN ROMAN Normal [facility] Comment on above: Order Comment: Speci men Type: URINE SPECIMENOrdering Facility: [facility] Address: [address] [place] [address] Result Comment: This test is for medical use only.This test was developed and its performance characteristics determined by [facility] [place] (-[facility]). It has not been cleared or approved by the FDA. -[facility] is regulated under CLIA as qualified to perform high-complexity testing. This test is used for clinical purposes. It should not be regarded as investigational or for research. Performed By: #### L [id number] ####[facility] [id number] [place] [address] [place] oxyCODONE Confirm (U) [Mass/Vol] <10 Normal <10 [facility] Comment on above: Order Comment: Speci men Type: URINE SPECIMENOrdering Facility: [facility] Address: [address] [place] [address] Performed By: #### L [id number] ####[facility] [id number] [place] [address] [place] oxyMORphone Confirm (U) [Mass/Vol] <5 Normal <5 [facility] Comment on above: Order Comment: Speci men Type: URINE SPECIMENOrdering Facility: [facility] Address: [address] [place] [address] Result Comment: Oxym orphone is a metabolite of oxycodone. Performed By: #### L [id number] ####[facility] LABIA [id number] [address] [place] traMADol Confirm (U) [Mass/Vol] >5208 High <25 [facility] Comment on above: Order Comment: Speci men Type: URINE SPECIMENOrdering Facility: [facility] Address: [address] [place] [address] Result Comment: Pres ence of tramadol indicates use of a tramadol containing drug (Ultram). Tramadol is metabolized to O-Desmethyltramadol. Performed By: #### L [id number] ####[facility] LABIA [id number] [place] [address] [place] SPECIMEN VALIDITY, URINEon 0 1-10-4 CHROMATE,URINE <10 Normal <50 [facility] Comment on above: Order Comment: Speci men Type: URINE SPECIMENOrdering Facility: [facility] Address: [address] [place] [address] Performed By: #### L [id number] ####[facility] LABIA [id number] [place] [address] [place] CREATININE,URINE 124.4 mg/dL Normal 20.0-300.0 [facility] Comment on above: Order Comment: Speci men Type: URINE SPECIMENOrdering Facility: [facility] Address: [address] [place] [address] Performed By: #### L [id number] ####[facility] LABIA [id number] [place] [address] [place] NITRITES,URINE 52 mg/L Normal <500 [facility] Comment on above: Order Comment: Speci men Type: URINE SPECIMENOrdering Facility: [facility] Address: [address] [place] [address] Performed By: #### L [id number] ####[facility] LABCLIA [id number] [place] [address] [place] OXIDANTS,URINE <38 Normal <200 [facility] Comment on above: Order Comment: Speci men Type: URINE SPECIMENOrdering Facility: [facility] Address: [address] [place] [address] Performed By: #### L [id number] ####[facility] LABCLIA [id number] [place] [address] [place] pH (U) 5.8 [pH] Normal 4.5-8.0 [facility] Comment on above: Order Comment: Speci men Type: URINE SPECIMENOrdering Facility: [facility] Address: [address] [place] [address] Performed By: #### L [id number] ####[facility] LABCLIA [id number] [place] [address] [place] SPEC GRAVITY,UR 1.017 Normal 1.003-1.03 5 [facility] Comment on above: Order Comment: Speci men Type: URINE SPECIMENOrdering Facility: [facility] Address: [address] [place] [address] Performed By: #### L [id number] ####[facility] LABCLIA [id number] [place] [address] [place] SPECIMEN VALIDITY QUALITY Specimen quality results within acceptable limits Normal [facility] Comment on above: Order Comment: Speci men Type: URINE SPECIMENOrdering Facility: [facility] Address: [address] [place] [address] Performed By: #### L [id number] ####[facility] LABCLIA [id number] [place] [address] [place] TOX SCREEN ROUT URon 024 Amphetamines Confirm (U) [Mass/Vol] Negative Normal Negative [facility] Comment on above: Order Comment: Speci men Type: URINE SPECIMENOrdering Facility: [facility] Address: [address] [place] [address] Result Comment: Cuto ff threshold at 1000 ng/mL. Performed By: #### U TOX2 ####[facility] LABCLIA [id number] [place] [address] [place] BARBITURATES, URINE Negative Normal Negative [facility] Comment on above: Order Comment: Speci men Type: URINE SPECIMENOrdering Facility: [facility] Address: [address] [place] [address] Result Comment: Cuto ff threshold at 200 ng/mL. Performed By: #### U TOX2 ####[facility] LABCLIA [id number] [place] [address] [place] BENZODIAZEPINES, UR Negative Normal Negative [facility] Comment on above: Order Comment: Speci men Type: URINE SPECIMENOrdering Facility: [facility] Address: [address] [place] [address] Result Comment: Cuto ff threshold at 200 ng/mL. Performed By: #### U TOX2 ####[facility] LABCLIA [id number] [place] [address] [place] Cannabinoids Screen Ql (U) Negative Normal Negative [facility] Comment on above: Order Comment: Speci men Type: URINE SPECIMENOrdering Facility: [facility] Address: [address] [place] [address] Result Comment: Cuto ff threshold at 50 ng/mL. Performed By: #### U TOX2 ####[facility] LABCLIA [id number] [place] [address] [place] Cocaine Ql (U) Negative Normal Negative [facility] Comment on above: Order Comment: Speci men Type: URINE SPECIMENOrdering Facility: [facility] Address: [address] [place] [address] Result Comment: Cuto ff threshold at 300 ng/mL. Performed By: #### U TOX2 ####[facility] LABCLIA [id number] [place] [address] [place] Ethanol (U) [Mass/Vol] <11 Normal <11 [facility] Comment on above: Order Comment: Speci men Type: URINE SPECIMENOrdering Facility: [facility] Address: [address] [place] [address] Performed By: #### U TOX2 ####[facility] LABIA [id number] [place] [address] [place] Opiates Screen Ql (U) Negative Normal Negative [facility] Comment on above: Order Comment: Speci men Type: URINE SPECIMENOrdering Facility: [facility] Address: [address] [place] [address] Result Comment: Cuto ff threshold at 300 ng/mL. Performed By: #### U TOX2 ####[facility] LABIA [id number] [place] [address] [place] oxyCODONE cutoff Screen (U) [Mass/Vol] Negative Normal Negative [facility] Comment on above: Order Comment: Speci men Type: URINE SPECIMENOrdering Facility: [facility] Address: [address] [place] [address] Result Comment: Cuto ff threshold at 100 ng/mL. Performed By: #### U TOX2 ####[facility] LABIA [id number] [place] [address] [place] Phencyclidine Ql (U) Negative Normal Negative [facility] Comment on above: Order Comment: Speci men Type: URINE SPECIMENOrdering Facility: [facility] Address: [address] [place] [address] Result Comment: Cuto ff threshold at 25 ng/mL. Performed By: #### U TOX2 ####[facility] LABCLIA [id number] [place] [address] [place] TSH SerPl-aCncon 08-18-2023 TSH Qn 3.510 m[IU]/L Normal 0.270-4.20 0 [facility] Comment on above: Order Comment: Speci men Type: BLOOD SPECIMENOrdering Facility: [facility] Address: [address] [place] [address] Performed By: #### 3 016-3, LIPNF, 04744-4 ####[facility] LABCLIA [id number] [place] [address] [place]#### 18900-9 ####[facility] MILLTOWANYILIA [id number] [place] [address] [place] CBC W Auto Differential pane l (Bld)on 07-26-2023 Basophils (Bld) [#/Vol] 0.09 10*3/uL Normal <0.11 [facility] Comment on above: Order Comment: Speci men Type: BLOOD SPECIMENOrdering Facility: [facility] Address: [address] [place] [address] Performed By: #### 5 7021-8 ####[facility] INSTITUTEANYILIA [id number] [place] [address] [place] Basophils/100 WBC (Bld) 2.0 % Normal [facility] Comment on above: Order Comment: Speci men Type: BLOOD SPECIMENOrdering Facility: [facility] Address: [address] [place] [address] Performed By: #### 5 7021-8 ####[facility] IN[facility]UTENCLIA [id number] [place] [address] [place] Differential cell count method Nom (Bld) Auto Normal [facility] Comment on above: Order Comment: Speci men Type: BLOOD SPECIMENOrdering Facility: [facility] Address: [address] [place] [address] Performed By: #### 5 7021-8 ####[facility] [id number] [place] [address] [place] Eosinophils (Bld) [#/Vol] 0.04 10*3/uL Normal <0.46 [facility] Comment on above: Order Comment: Speci men Type: BLOOD SPECIMENOrdering Facility: [facility] Address: [address] [place] [address] Performed By: #### 5 7021-8 ####[facility] [id number] [place] [address] [place] Eosinophils/100 WBC (Bld) 0.9 % Normal [facility] Comment on above: Order Comment: Speci men Type: BLOOD SPECIMENOrdering Facility: [facility] Address: [address] [place] [address] Performed By: #### 5 7021-8 ####[facility] [id number] [place] [address] [place] Erythrocyte distribution width (RBC) [Ratio] 16.9 % High 11.5-15.0 [facility] Comment on above: Order Comment: Speci men Type: BLOOD SPECIMENOrdering Facility: [facility] Address: [address] [place] [address] Performed By: #### 5 7021-8 ####[facility] [facility] [id number] [place] [address] [place] Hematocrit (Bld) [Volume fraction] 37.4 % Normal 36.0-46.0 [facility] Comment on above: Order Comment: Speci men Type: BLOOD SPECIMENOrdering Facility: [facility] Address: [address] [place] [address] Performed By: #### 5 7021-8 ####[facility] [id number] [place] [address] [place] Hemoglobin (Bld) [Mass/Vol] 12.0 g/dL Normal 11.5-15.5 [facility] Comment on above: Order Comment: Speci men Type: BLOOD SPECIMENOrdering Facility: [facility] Address: [address] [place] [address] Performed By: #### 5 7021-8 ####[facility] [id number] [place] [address] [place] Immature granulocytes (Bld) [#/Vol] 10*3/uL Normal <0.10 [facility] Comment on above: Order Comment: Speci men Type: BLOOD SPECIMENOrdering Facility: [facility] Address: [address] [place] [address] Performed By: #### 5 7021-8 ####[facility] [id number] [place] [address] [place] Immature granulocytes/100 WBC (Bld) 0.0 % Normal [facility] Comment on above: Order Comment: Speci men Type: BLOOD SPECIMENOrdering Facility: [facility] Address: [address] [place] [address] Performed By: #### 5 7021-8 ####[facility] [id number] [place] [address] [place] Lymphocytes (Bld) [#/Vol] 2.35 10*3/uL Normal 1.00-4.00 [facility] Comment on above: Order Comment: Speci men Type: BLOOD SPECIMENOrdering Facility: [facility] Address: [address] [place] [address] Performed By: #### 5 7021-8 ####[facility] [id number] [place] [address] [place] Lymphocytes/100 WBC (Bld) 51.8 % Normal [facility] Comment on above: Order Comment: Speci men Type: BLOOD SPECIMENOrdering Facility: [facility] Address: [address] [place] [address] Performed By: #### 5 7021-8 ####[facility] INSTITUTENCLIA [id number] [place] [address] [place] [facility] MCH (RBC) [Entitic mass] 32.1 pg Normal 26.0-34.0 [facility] Comment on above: Order Comment: Speci men Type: BLOOD SPECIMENOrdering Facility: [facility] Address: [address] [place] [address] Performed By: #### 5 7021-8 ####[facility] [id number] [place] [address] [place] MCHC (RBC) [Mass/Vol] 32.1 g/dL Normal 30.5-36.0 [facility] Comment on above: Order Comment: Speci men Type: BLOOD SPECIMENOrdering Facility: [facility] Address: [address] [place] [address] Performed By: #### 5 7021-8 ####[facility] [id number] [place] [address] [place] MCV (RBC) [Entitic vol] 100.0 fL Normal 80.0-100.0 [facility] Comment on above: Order Comment: Speci men Type: BLOOD SPECIMENOrdering Facility: [facility] Address: [address] [place] [address] Performed By: #### 5 7021-8 ####[facility] [id number] [place] [address] [place] Monocytes (Bld) [#/Vol] 0.50 10*3/uL Normal <0.87 [facility] Comment on above: Order Comment: Speci men Type: BLOOD SPECIMENOrdering Facility: [facility] Address: [address] [place] [address] Performed By: #### 5 7021-8 ####[facility] [id number] [place] [address] [place] Monocytes/100 WBC (Bld) 11.0 % Normal [facility] Comment on above: Order Comment: Speci men Type: BLOOD SPECIMENOrdering Facility: [facility] Address: [address] [place] [address] Performed By: #### 5 7021-8 ####[facility] [id number] [place] [address] [place] Neutrophils (Bld) [#/Vol] 1.56 10*3/uL Normal 1.45-7.50 [facility] Comment on above: Order Comment: Speci men Type: BLOOD SPECIMENOrdering Facility: [facility] Address: [address] [place] [address] Performed By: #### 5 7021-8 ####[facility] [id number] [place] [address] [place] Neutrophils/100 WBC (Bld) 34.3 % Normal [facility] Comment on above: Order Comment: Speci men Type: BLOOD SPECIMENOrdering Facility: [facility] Address: [address] [place] [address] Performed By: #### 5 7021-8 ####[facility] [id number] [place] [address] [place] Nucleated RBC (Bld) [#/Vol] 10*3/uL Normal <0.01 [facility] Comment on above: Order Comment: Speci men Type: BLOOD SPECIMENOrdering Facility: [facility] Address: [address] [place] [address] Performed By: #### 5 7021-8 ####[facility] [id number] [place] [address] [place] Nucleated RBC/100 WBC (Bld) [Ratio] 0.0 /100 WBC Normal [facility] Comment on above: Order Comment: Speci men Type: BLOOD SPECIMENOrdering Facility: [facility] Address: [address] [place] [address] Performed By: #### 5 7021-8 ####[facility] MGTHOUSAND OAKSNCFARZANA [id number] [place] [address] [place] Platelet mean volume (Bld) [Entitic vol] 9.7 fL Normal 9.0-12.7 [facility] Comment on above: Order Comment: Speci men Type: BLOOD SPECIMENOrdering Facility: [facility] Address: [address] [place] [address] Performed By: #### 5 7021-8 ####[facility] IN[facility]UTENCM[facility] [id number] [place] [address] [place] Platelets (Bld) [#/Vol] 270 10*3/uL Normal 150-400 [facility] Comment on above: Order Comment: Speci men Type: BLOOD SPECIMENOrdering Facility: [facility] Address: [address] [place] [address] Performed By: #### 5 7021-8 ####[facility] INSTITUTENCLIA [id number] [place] [address] [place] RBC (Bld) [#/Vol] 3.74 10*6/uL Low 3.90-5.20 [facility] Comment on above: Order Comment: Speci men Type: BLOOD SPECIMENOrdering Facility: [facility] Address: [address] [place] [address] Performed By: #### 5 7021-8 ####[facility] INSTITUTENCLIA [id number] [place] [address] [place] WBC (Bld) [#/Vol] 4.54 10*3/uL Normal 3.70-11.00 [facility] Comment on above: Order Comment: Speci men Type: BLOOD SPECIMENOrdering Facility: [facility] Address: [address] [place] [address] Performed By: #### 5 7021-8 ####[facility] INSTITUTENCA [id number] [place] [address] [place] CNOVSPon 07-26-2023 CNOVSP Normal [facility] Cancer Ag125 SerPl-aCncon Cancer Ag 125 Qn 6 [arb'U]/mL Normal <39 [facility] Comment on above: Order Comment: Speci men Type: BLOOD SPECIMENOrdering Facility: [facility] Address: [address] [place] [address] Result Comment: CA 1 25 test methodology used is the Electrochemiluminescence Immunoassay by [employer]. Results obtained with different methods or kits cannot be used interchangeably.The reference interval is based on the 95th percentile of 240 apparently healthy premenopausal and postmenopausal women. At a cutoff value of 65 U/mL, the test sensitivity to distinguish ovarian carcinoma (FIGO stage I to IV) versus benign gynecological disease is 79%, with a specificity of 82%.Reference: Cancer Antigen 125 (CA 125 II) [package insert V 1.0 [facility] [employer], [place], [place] (May 2015) Performed By: #### 1 0334-1 ####[facility] LABCLIA [id number] [place] [address] [place] Comprehensive metabolic 2000 panelon 07-26-2023 Albumin [Mass/Vol] 4.3 g/dL Normal 3.9-4.9 [facility] Comment on above: Order Comment: Speci men Type: BLOOD SPECIMENOrdering Facility: [facility] Address: [address] [place] [address] Performed By: #### 2 4323-8, 26536-0 ####[facility] INSTITUTENCLIA [id number] [place] [address] [place] ALP [Catalytic activity/Vol] 99 U/L Normal 34-123 [facility] Comment on above: Order Comment: Speci men Type: BLOOD SPECIMENOrdering Facility: [facility] Address: [address] [place] [address] Performed By: #### 2 4323-8, ####[facility] MILLTOWNCLIA [id number] [place] [address] [place] ALT [Catalytic activity/Vol] 19 U/L Normal 7-38 [facility] Comment on above: Order Comment: Speci men Type: BLOOD SPECIMENOrdering Facility: [facility] Address: [address] [place] [address] Performed By: #### 2 432-8, ####[facility] MILLTOWNCLIA [id number] [place] [address] [place] Anion gap [Moles/Vol] 12 mmol/L Normal 9-18 [facility] Comment on above: Order Comment: Speci men Type: BLOOD SPECIMENOrdering Facility: [facility] Address: [address] [place] [address] Performed By: #### 2 432-8, ####[facility] INSTITUTENCLIA [id number] [place] [address] [place] AST [Catalytic activity/Vol] 26 U/L Normal 13-35 [facility] Comment on above: Order Comment: Speci men Type: BLOOD SPECIMENOrdering Facility: [facility] Address: [address] [place] [address] Performed By: #### 2 4328, ####[facility] MILLTOWNCLIA [id number] [place] [address] [place] Bilirubin [Mass/Vol] 0.3 mg/dL Normal 0.2-1.3 [facility] Comment on above: Order Comment: Speci men Type: BLOOD SPECIMENOrdering Facility: [facility] Address: [address] [place] [address] Performed By: #### 2 4323-8, ####[facility]ENTERWNCLIA [id number] [place] [address] [place] Calcium [Mass/Vol] 10.2 mg/dL Normal 8.5-10.2 [facility] Comment on above: Order Comment: Speci men Type: BLOOD SPECIMENOrdering Facility: [facility] Address: [address] [place] [address] Performed By: #### 2 4323-8, ####[facility] MILLTOWNCLIA [id number] [place] [address] [place] Chloride [Moles/Vol] 103 mmol/L Normal 97-105 [facility] Comment on above: Order Comment: Speci men Type: BLOOD SPECIMENOrdering Facility: [facility] Address: [address] [place] [address] Performed By: #### 2 4323-8, ####[facility] MILLWNCLIA [id number] [place] [address] [place] CO2 [Moles/Vol] 22 mmol/L Normal 22-30 [facility] Comment on above: Order Comment: Speci men Type: BLOOD SPECIMENOrdering Facility: [facility] Address: [address] [place] [address] Performed By: #### 2 4323-8, ####[facility] MILLTOWNCLIA [id number] [place] [address] [place] Creatinine [Mass/Vol] 0.61 mg/dL Normal 0.58-0.96 [facility] Comment on above: Order Comment: Speci men Type: BLOOD SPECIMENOrdering Facility: [facility] Address: [address] [place] [address] Performed By: #### 2 4323-8, ####[facility] MILLTOWNCLIA [id number] [place] [address] [place] Creatinine and Glomerular filtration rate.predicted panel (S/P/Bld) 88 mL/min/1.73m??? Normal >=60 [facility] Comment on above: Order Comment: Zay sandoval Type: BLOOD SPECIMENOrdering Facility: [facility] Address: [address] [place] [address] Result Comment: Marlyn mated Glomerular Filtration Rate (eGFR) is calculated using the 2020 CKD-EPI creatinine equation. This equation utilizes serum creatinine, sex, and age as parameters. The creatinine assay has traceable calibration to isotope dilution-mass spectrometry. Refer to KDIGO guidelines for clinical interpretation. In patients with unstable renal function, e.g. those with acute kidney injury, the eGFR may not accurately reflect actual GFR. Performed By: #### 2 4323-8, 53337-1 ####[facility] [id number] [place] [address] [place] Glucose [Mass/Vol] 102 mg/dL High 74-99 [facility] Comment on above: Order Comment: Zay sandoval Type: BLOOD SPECIMENOrdering Facility: [facility] Address: [address] [place] [address] Result Comment: The [place] Diabetes [employer] (ADA) provides guidance for cutoff values for fasting glucose and random glucose. The ADA defines fasting as no caloric intake for at least 8 hours. Fasting plasma glucose results between 100 to 125 mg/dL indicate increased risk for diabetes (prediabetes).Fasting plasma glucose results greater than or equal to 126 mg/dL meet the criteria for diagnosis of diabetes. In the absence of unequivocal hyperglycemia, results should be confirmed by repeat testing. In a patient with classic symptoms of hyperglycemia or hyperglycemic crisis, random plasma glucose results greater than or equal to 200 mg/dL meet the criteria for diagnosis of diabetes.Reference: Standards of Medical Care in Diabetes 2016, [place] [employer]. Diabetes Care. 2016.39(Suppl 1). Performed By: #### 2 4323-8, 76139-2 ####[facility] [id number] [place] [address] [place] Potassium [Moles/Vol] 4.5 mmol/L Normal 3.7-5.1 [facility] Comment on above: Order Comment: Speci men Type: BLOOD SPECIMENOrdering Facility: [facility] Address: [address] [place] [address] Performed By: #### 2 4323-8, ####[facility] MILLTHOUSAND OAKSNCLIA [id number] [place] [address] [place] Protein [Mass/Vol] 7.7 g/dL Normal 6.3-8.0 [facility] Comment on above: Order Comment: Speci men Type: BLOOD SPECIMENOrdering Facility: [facility] Address: [address] [place] [address] Performed By: #### 2 432-8, ####[facility] INSTITUTENCLIA [id number] [place] [address] [place] Sodium [Moles/Vol] 137 mmol/L Normal 136-144 [facility] Comment on above: Order Comment: Speci men Type: BLOOD SPECIMENOrdering Facility: [facility] Address: [address] [place] [address] Performed By: #### 2 432-8, ####[facility] INSTITUTENCLIA [id number] [place] [address] [place] Urea nitrogen [Mass/Vol] 26 mg/dL High 7-21 [facility] Comment on above: Order Comment: Speci men Type: BLOOD SPECIMENOrdering Facility: [facility] Address: [address] [place] [address] Performed By: #### 2 4323-8, ####[facility] INSTITUTENCLIA [id number] [place] [address] [place] Magnesium SerPl-mCncon 07-26 Magnesium [Mass/Vol] 2.1 mg/dL Normal 1.7-2.3 [facility] Comment on above: Order Comment: Speci men Type: BLOOD SPECIMENOrdering Facility: [facility] Address: [place] [address] Performed By: #### 2 4323-8, 73250-3 ####[facility] INSTITUTENCLIA [id number] [place] [address] [place] CNPNon 07-16-2023 CNPN Normal [facility] Basic metabolic 2000 panelon 07-14-2023 Anion gap [Moles/Vol] 11 mmol/L Normal 9-18 [facility] Comment on above: Order Comment: Speci men Type: BLOOD SPECIMENOrdering Facility: [facility] Address: [place] [address] Performed By: #### 2 4321-2 ####[facility]UTENCM[facility] [id number] [place] [address] [place] Calcium [Mass/Vol] 9.8 mg/dL Normal 8.5-10.2 [facility] Comment on above: Order Comment: Speci men Type: BLOOD SPECIMENOrdering Facility: [facility] Address: [place] [address] Performed By: #### 2 4321-2 ####[facility] INSTITUTENCLIA [id number] [place] [address] [place] Chloride [Moles/Vol] 103 mmol/L Normal 97-105 [facility] Comment on above: Order Comment: Speci men Type: BLOOD SPECIMENOrdering Facility: [facility] Address: [address] [place] [address] Performed By: #### 2 4321-2 ####[facility] INSTITUTENCLIA [id number] [place] [address] [place] CO2 [Moles/Vol] 26 mmol/L Normal 22-30 [facility] Comment on above: Order Comment: Speci men Type: BLOOD SPECIMENOrdering Facility: [facility] Address: [address] [place] [address] Performed By: #### 2 4321-2 ####[facility]EN[facility] [id number] [place] [address] [place] Creatinine [Mass/Vol] 0.63 mg/dL Normal 0.58-0.96 [facility] Comment on above: Order Comment: Speci men Type: BLOOD SPECIMENOrdering Facility: [facility] Address: [address] [place] [address] Performed By: #### 2 4321-2 ####[facility] INSTITUTENCLIA [id number] [place] [address] [place] Creatinine and Glomerular filtration rate.predicted panel (S/P/Bld) 88 mL/min/1.73m??? Normal >=60 [facility] Comment on above: Order Comment: Zay men Type: BLOOD SPECIMENOrdering Facility: [facility] Address: [place] [address] Result Comment: Marlyn mated Glomerular Filtration Rate (eGFR) is calculated using the 2020 CKD-EPI creatinine equation. This equation utilizes serum creatinine, sex, and age as parameters. The creatinine assay has traceable calibration to isotope dilution-mass spectrometry. Refer to KDIGO guidelines for clinical interpretation. In patients with unstable renal function, e.g. those with acute kidney injury, the eGFR may not accurately reflect actual GFR. Performed By: #### 2 4321-2 ####[facility] INSTITUTENCLIA [id number] [place] [address] [place] Glucose [Mass/Vol] 104 mg/dL High 74-99 [facility] Comment on above: Order Comment: Pratibhai men Type: BLOOD SPECIMENOrdering Facility: [facility] Address: [address] [place] [address] Result Comment: The [place] Diabetes Association (ADA) provides guidance for cutoff values for fasting glucose and random glucose. The ADA defines fasting as no caloric intake for at least 8 hours. Fasting plasma glucose results between 100 to 125 mg/dL indicate increased risk for diabetes (prediabetes).Fasting plasma glucose results greater than or equal to 126 mg/dL meet the criteria for diagnosis of diabetes. In the absence of unequivocal hyperglycemia, results should be confirmed by repeat testing. In a patient with classic symptoms of hyperglycemia or hyperglycemic crisis, random plasma glucose results greater than or equal to 200 mg/dL meet the criteria for diagnosis of diabetes.Reference: Standards of Medical Care in Diabetes 2016, [place] [employer]. Diabetes Care. 2016.39(Suppl 1). Performed By: #### 2 4321-2 ####[facility] CENTERWMSLIA [id number] [place] [address] [place] Potassium [Moles/Vol] 4.4 mmol/L Normal 3.7-5.1 [facility] Comment on above: Order Comment: Speci men Type: BLOOD SPECIMENOrdering Facility: [facility] Address: [address] [place] [address] Performed By: #### 2 4321-2 ####[facility] [id number] [place] [address] [place] Sodium [Moles/Vol] 140 mmol/L Normal 136-144 [facility] Comment on above: Order Comment: Pratibhai lori Type: BLOOD SPECIMENOrdering Facility: [facility] Address: [address] [place] [address] Performed By: #### 2 4321-2 ####[facility] [id number] [place] [address] [place] Urea nitrogen [Mass/Vol] 20 mg/dL Normal 7-21 [facility] Comment on above: Order Comment: Speci men Type: BLOOD SPECIMENOrdering Facility: [facility] Address: [address] [place] [address] Performed By: #### 2 4321-2 ####[facility] [id number] [place] [address] [place] CBC W Auto Differential pane l (Bld)on 07-14-2023 Basophils (Bld) [#/Vol] 10*3/uL Normal <0.11 [facility] Comment on above: Order Comment: Speci men Type: BLOOD SPECIMENOrdering Facility: [facility] Address: [address] [place] [address] Performed By: #### 5 7021-8 ####[facility] CENTERWMSLIA [id number] [place] [address] [place] Basophils/100 WBC (Bld) 0.3 % Normal [facility] Comment on above: Order Comment: Speci men Type: BLOOD SPECIMENOrdering Facility: [facility] Address: [address] [place] [address] Performed By: #### 5 7021-8 ####[facility] [id number] [place] [address] [place] Differential cell count method Nom (Bld) Auto Normal [facility] Comment on above: Order Comment: Speci men Type: BLOOD SPECIMENOrdering Facility: [facility] Address: [address] [place] [address] Performed By: #### 5 7021-8 ####[facility] [id number] [place] [address] [place] Eosinophils (Bld) [#/Vol] 0.03 10*3/uL Normal <0.46 [facility] Comment on above: Order Comment: Speci men Type: BLOOD SPECIMENOrdering Facility: [facility] Address: [address] [place] [address] Performed By: #### 5 7021-8 ####[facility] [id number] [place] [address] [place] Eosinophils/100 WBC (Bld) 1.0 % Normal [facility] Comment on above: Order Comment: Speci men Type: BLOOD SPECIMENOrdering Facility: [facility] Address: [address] [place] [address] Performed By: #### 5 7021-8 ####[facility] INSTITUTENCLIA [id number] [place] [address] [place] Erythrocyte distribution width (RBC) [Ratio] 16.1 % High 11.5-15.0 [facility] Comment on above: Order Comment: Speci men Type: BLOOD SPECIMENOrdering Facility: [facility] Address: [address] [place] [address] Performed By: #### 5 7021-8 ####[facility] [id number] [place] [address] [place] Hematocrit (Bld) [Volume fraction] 35.8 % Low 36.0-46.0 [facility] Comment on above: Order Comment: Speci men Type: BLOOD SPECIMENOrdering Facility: [facility] Address: [address] [place] [address] Performed By: #### 5 7021-8 ####[facility] [id number] [place] [address] [place] Hemoglobin (Bld) [Mass/Vol] 11.6 g/dL Normal 11.5-15.5 [facility] Comment on above: Order Comment: Speci men Type: BLOOD SPECIMENOrdering Facility: [facility] Address: [address] [place] [address] Performed By: #### 5 7021-8 ####[facility]ALTHLIA [id number] [place] [address] [place] Immature granulocytes (Bld) [#/Vol] 10*3/uL Normal <0.10 [facility] Comment on above: Order Comment: Speci men Type: BLOOD SPECIMENOrdering Facility: [facility] Address: [address] [place] [address] Performed By: #### 5 7021-8 ####[facility] [id number] [place] [address] [place] Immature granulocytes/100 WBC (Bld) 0.3 % Normal [facility] Comment on above: Order Comment: Speci men Type: BLOOD SPECIMENOrdering Facility: [facility] Address: [address] [place] [address] Performed By: #### 5 7021-8 ####[facility]EN[facility] [id number] [place] [address] [place] Lymphocytes (Bld) [#/Vol] 1.62 10*3/uL Normal 1.00-4.00 [facility] [facility] Comment on above: Order Comment: Speci men Type: BLOOD SPECIMENOrdering Facility: [facility] Address: [address] [place] [address] Performed By: #### 5 7021-8 ####[facility] INSTITUTENCA [id number] [place] [address] [place] Lymphocytes/100 WBC (Bld) 54.0 % Normal [facility] Comment on above: Order Comment: Speci men Type: BLOOD SPECIMENOrdering Facility: [facility] Address: [address] [place] [address] Performed By: #### 5 7021-8 ####[facility] INSTITUTENCLIA [id number] [place] [address] [place] MCH (RBC) [Entitic mass] 31.8 pg Normal 26.0-34.0 [facility] Comment on above: Order Comment: Speci men Type: BLOOD SPECIMENOrdering Facility: [facility] Address: [address] [place] [address] Performed By: #### 5 7021-8 ####[facility] RES[facility] INSTITUTENCLI [id number] [place] [address] [place] MCHC (RBC) [Mass/Vol] 32.4 g/dL Normal 30.5-36.0 [facility] Comment on above: Order Comment: Speci men Type: BLOOD SPECIMENOrdering Facility: [facility] Address: [address] [place] [address] Performed By: #### 5 7021-8 ####[facility] INSTITUTENCFARZANA [id number] [place] [address] [place] MCV (RBC) [Entitic vol] 98.1 fL Normal 80.0-100.0 [facility] Comment on above: Order Comment: Speci men Type: BLOOD SPECIMENOrdering Facility: [facility] Address: [address] [place] [address] Performed By: #### 5 7021-8 ####[facility] INSTITUTENCLI [id number] [place] [address] [place] Monocytes (Bld) [#/Vol] 0.23 10*3/uL Normal <0.87 [facility] Comment on above: Order Comment: Speci men Type: BLOOD SPECIMENOrdering Facility: [facility] Address: [address] [place] [address] Performed By: #### 5 7021-8 ####[facility] [id number] [place] [address] [place] Monocytes/100 WBC (Bld) 7.7 % Normal [facility] Comment on above: Order Comment: Speci men Type: BLOOD SPECIMENOrdering Facility: [facility] Address: [address] [place] [address] Performed By: #### 5 7021-8 ####[facility] [id number] [place] [address] [place] Neutrophils (Bld) [#/Vol] 1.10 10*3/uL Low 1.45-7.50 [facility] Comment on above: Order Comment: Speci men Type: BLOOD SPECIMENOrdering Facility: [facility] Address: [address] [place] [address] Performed By: #### 5 7021-8 ####[facility]ALTHLIA [id number] [place] [address] [place] Neutrophils/100 WBC (Bld) 36.7 % Normal [facility] Comment on above: Order Comment: Speci men Type: BLOOD SPECIMENOrdering Facility: [facility] Address: [address] [place] [address] Performed By: #### 5 7021-8 ####[facility] [id number] [place] [address] [place] Nucleated RBC (Bld) [#/Vol] 10*3/uL Normal <0.01 [facility] Comment on above: Order Comment: Speci men Type: BLOOD SPECIMENOrdering Facility: [facility] Address: [address] [place] [address] Performed By: #### 5 7021-8 ####[facility] [id number] [place] [address] [place] Nucleated RBC/100 WBC (Bld) [Ratio] 0.0 /100 WBC Normal [facility] Comment on above: Order Comment: Speci men Type: BLOOD SPECIMENOrdering Facility: [facility] Address: [address] [place] [address] Performed By: #### 5 7021-8 ####[facility] [id number] [place] [address] [place] Platelet mean volume (Bld) [Entitic vol] 9.1 fL Normal 9.0-12.7 [facility] Comment on above: Order Comment: Speci men Type: BLOOD SPECIMENOrdering Facility: [facility] Address: [address] [place] [address] Performed By: #### 5 7021-8 ####[facility] RES[facility] INSTITUTENCLI [id number] [place] [address] [place] Platelets (Bld) [#/Vol] 373 10*3/uL Normal 150-400 [facility] Comment on above: Order Comment: Speci men Type: BLOOD SPECIMENOrdering Facility: [facility] Address: [address] [place] [address] Performed By: #### 5 7021-8 ####[facility] INSTITUTELAILAA [id number] [place] [address] [place] RBC (Bld) [#/Vol] 3.65 10*6/uL Low 3.90-5.20 [facility] Comment on above: Order Comment: Speci men Type: BLOOD SPECIMENOrdering Facility: [facility] Address: [address] [place] [address] Performed By: #### 5 7021-8 ####[facility] RESE[facility] INSTITUTENCFARZANA [id number] [place] [address] [place] WBC (Bld) [#/Vol] 3.00 10*3/uL Low 3.70-11.00 [facility] Comment on above: Order Comment: Speci men Type: BLOOD SPECIMENOrdering Facility: [facility] Address: [address] [place] [address] Performed By: #### 5 7021-8 ####[facility] INSTITUTENCLIDavid [id number] [place] [address] [place] CNPNon 07-12-2023 CNPN Normal [facility] CBC W Auto Differential pane l (Bld)on 07-07-2023 Basophils (Bld) [#/Vol] 0.03 10*3/uL Normal <0.11 [facility] Comment on above: Order Comment: Speci men Type: BLOOD SPECIMENOrdering Facility: [facility] Address: [address] [place] [address] Performed By: #### 5 7021-8 ####[facility] RES[facility] INSTITUTENCLIA [id number] [place] [address] [place] Basophils/100 WBC (Bld) 1.0 % Normal [facility] Comment on above: Order Comment: Speci men Type: BLOOD SPECIMENOrdering Facility: [facility] Address: [address] [place] [address] Performed By: #### 5 7021-8 ####[facility] INSTITUTENCMOUNTAIN [facility] [id number] [place] [address] [place] Differential cell count method Nom (Bld) Auto Normal [facility] Comment on above: Order Comment: Speci men Type: BLOOD SPECIMENOrdering Facility: [facility] Address: [address] [place] [address] Performed By: #### 5 7021-8 ####[facility] [id number] [place] [address] [place] Eosinophils (Bld) [#/Vol] 0.05 10*3/uL Normal <0.46 [facility] Comment on above: Order Comment: Speci men Type: BLOOD SPECIMENOrdering Facility: [facility] Address: [address] [place] [address] Performed By: #### 5 7021-8 ####[facility] [id number] [place] [address] [place] Eosinophils/100 WBC (Bld) 1.6 % Normal [facility] Comment on above: Order Comment: Speci men Type: BLOOD SPECIMENOrdering Facility: [facility] Address: [address] [place] [address] Performed By: #### 5 7021-8 ####[facility] [id number] [place] [address] [place] Erythrocyte distribution width (RBC) [Ratio] 15.3 % High 11.5-15.0 [facility] Comment on above: Order Comment: Speci men Type: BLOOD SPECIMENOrdering Facility: [facility] Address: [address] [place] [address] Performed By: #### 5 7021-8 ####[facility] MGRIVERVIEW HOSPITALLIA [id number] [place] [address] [place] Hematocrit (Bld) [Volume fraction] 36.1 % Normal 36.0-46.0 [facility] Comment on above: Order Comment: Speci men Type: BLOOD SPECIMENOrdering Facility: [facility] Address: [address] [place] [address] Performed By: #### 5 7021-8 ####[facility] RES[facility] INSTITUTENCLIA [id number] [place] [address] [place] Hemoglobin (Bld) [Mass/Vol] 11.6 g/dL Normal 11.5-15.5 [facility] Comment on above: Order Comment: Speci men Type: BLOOD SPECIMENOrdering Facility: [facility] Address: [address] [place] [address] Performed By: #### 5 7021-8 ####[facility] [id number] [place] [address] [place] Immature granulocytes (Bld) [#/Vol] 10*3/uL Normal <0.10 [facility] Comment on above: Order Comment: Speci men Type: BLOOD SPECIMENOrdering Facility: [facility] Address: [address] [place] [address] Performed By: #### 5 7021-8 ####[facility] [id number] [place] [address] [place] Immature granulocytes/100 WBC (Bld) 0.0 % Normal [facility] Comment on above: Order Comment: Speci men Type: BLOOD SPECIMENOrdering Facility: [facility] Address: [address] [place] [address] Performed By: #### 5 7021-8 ####[facility] [id number] [place] [address] [place] Lymphocytes (Bld) [#/Vol] 1.82 10*3/uL Normal 1.00-4.00 [facility] Comment on above: Order Comment: Speci men Type: BLOOD SPECIMENOrdering Facility: [facility] Address: [address] [place] [address] Performed By: #### 5 7021-8 ####[facility] [id number] [place] [address] [place] Lymphocytes/100 WBC (Bld) 58.7 % Normal [facility] Comment on above: Order Comment: Speci men Type: BLOOD SPECIMENOrdering Facility: [facility] Address: [address] [place] [address] Performed By: #### 5 7021-8 ####[facility] [id number] [place] [address] [place] MCH (RBC) [Entitic mass] 31.7 pg Normal 26.0-34.0 [facility] Comment on above: Order Comment: Speci men Type: BLOOD SPECIMENOrdering Facility: [facility] Address: [address] [place] [address] Performed By: #### 5 7021-8 ####[facility] [id number] [place] [address] [place] MCHC (RBC) [Mass/Vol] 32.1 g/dL Normal 30.5-36.0 [facility] Comment on above: Order Comment: Speci men Type: BLOOD SPECIMENOrdering Facility: [facility] Address: [address] [place] [address] Performed By: #### 5 7021-8 ####[facility] [id number] [place] [address] [place] MCV (RBC) [Entitic vol] 98.6 fL Normal 80.0-100.0 [facility] Comment on above: Order Comment: Speci men Type: BLOOD SPECIMENOrdering Facility: [facility] Address: [address] [place] [address] Performed By: #### 5 7021-8 ####[facility] MGROMAIN [id number] [place] [address] [place] Monocytes (Bld) [#/Vol] 0.21 10*3/uL Normal <0.87 [facility] Comment on above: Order Comment: Speci men Type: BLOOD SPECIMENOrdering Facility: [facility] Address: [address] [place] [address] Performed By: #### 5 7021-8 ####[facility] RESEARCH INSTITUTEANYIA [id number] [place] [address] [place] Monocytes/100 WBC (Bld) 6.8 % Normal [facility] Comment on above: Order Comment: Speci men Type: BLOOD SPECIMENOrdering Facility: [facility] Address: [address] [place] [address] Performed By: #### 5 7021-8 ####[facility] [id number] [place] [address] [place] Neutrophils (Bld) [#/Vol] 0.99 10*3/uL Low 1.45-7.50 [facility] Comment on above: Order Comment: Speci men Type: BLOOD SPECIMENOrdering Facility: [facility] Address: [address] [place] [address] Performed By: #### 5 7021-8 ####[facility]ALTHL[facility] [id number] [place] [address] [place] Neutrophils/100 WBC (Bld) 31.9 % Normal [facility] Comment on above: Order Comment: Speci men Type: BLOOD SPECIMENOrdering Facility: [facility] Address: [address] [place] [address] Performed By: #### 5 7021-8 ####[facility] CENTERWNCLIA [id number] [place] [address] [place] Nucleated RBC (Bld) [#/Vol] 10*3/uL Normal <0.01 [facility] Comment on above: Order Comment: Speci men Type: BLOOD SPECIMENOrdering Facility: [facility] Address: [address] [place] [address] Performed By: #### 5 7021-8 ####[facility]ALTHL[facility] [id number] [place] [address] [place] Nucleated RBC/100 WBC (Bld) [Ratio] 0.0 /100 WBC Normal [facility] Comment on above: Order Comment: Speci men Type: BLOOD SPECIMENOrdering Facility: [facility] Address: [address] [place] [address] Performed By: #### 5 7021-8 ####[facility] [id number] [place] [address] [place] Platelet mean volume (Bld) [Entitic vol] 9.5 fL Normal 9.0-12.7 [facility] Comment on above: Order Comment: Speci men Type: BLOOD SPECIMENOrdering Facility: [facility] Address: [address] [place] [address] Performed By: #### 5 7021-8 ####[facility]ALTHL[facility] [id number] [place] [address] [place] Platelets (Bld) [#/Vol] 190 10*3/uL Normal 150-400 [facility] Comment on above: Order Comment: Speci men Type: BLOOD SPECIMENOrdering Facility: [facility] Address: [address] [place] [address] Performed By: #### 5 7021-8 ####[facility] RES[facility]ARCH INSTITUTENCLIA [id number] [place] [address] [place] RBC (Bld) [#/Vol] 3.66 10*6/uL Low 3.90-5.20 [facility] Comment on above: Order Comment: Speci men Type: BLOOD SPECIMENOrdering Facility: [facility] Address: [address] [place] [address] Performed By: #### 5 7021-8 ####[facility] RES[facility] INSTITUTENCA [id number] [place] [address] [place] WBC (Bld) [#/Vol] 3.10 10*3/uL Low 3.70-11.00 [facility] Comment on above: Order Comment: Speci men Type: BLOOD SPECIMENOrdering Facility: [facility] Address: [address] [place] [address] Performed By: #### 5 7021-8 ####[facility] [id number] [address] [place] CNOVSPon 07-07-2023 CNOVSP Normal [facility] Cancer Ag125 SerPl-aCncon Cancer Ag 125 Qn 6 [arb'U]/mL Normal <39 [facility] Comment on above: Order Comment: Speci men Type: BLOOD SPECIMENOrdering Facility: [facility] Address: [address] [place] [address] Result Comment: CA 1 25 test methodology used is the Electrochemiluminescence Immunoassay by [employer]. Results obtained with different methods or kits cannot be used interchangeably.The reference interval is based on the 95th percentile of 240 apparently healthy premenopausal and postmenopausal women. At a cutoff value of 65 U/mL, the test sensitivity to distinguish ovarian carcinoma (FIGO stage I to IV) versus benign gynecological disease is 79%, with a specificity of 82%.Reference: Cancer Antigen 125 (CA 125 II) [package insert V 1.0 [employer] [place]]. [employer], [place], [place] (May 2015) Performed By: #### 1 0334-1 ####[facility] LABCLIA [id number] [address] [place] Comprehensive metabolic 2000 panelon 07-07-2023 Albumin [Mass/Vol] 4.4 g/dL Normal 3.9-4.9 [facility] Comment on above: Order Comment: Speci men Type: BLOOD SPECIMENOrdering Facility: [facility] Address: [address] [place] [address] Performed By: #### 1 9123-9, 98095-5 ####[facility] MILLTOWANYILIA [id number] [place] [address] [place] ALP [Catalytic activity/Vol] 93 U/L Normal 34-123 [facility] Comment on above: Order Comment: Speci men Type: BLOOD SPECIMENOrdering Facility: [facility] Address: [address] [place] [address] Performed By: #### 1 9123-9, 34434-6 ####[facility] CENTERWANYILIA [id number] [place] [address] [place] ALT [Catalytic activity/Vol] 9 U/L Normal 7-38 [facility] Comment on above: Order Comment: Speci men Type: BLOOD SPECIMENOrdering Facility: [facility] Address: [address] [place] [address] Performed By: #### 1 9123-9, 99772-3 ####[facility]ALTHL[facility] [id number] [place] [address] [place] Anion gap [Moles/Vol] 9 mmol/L Normal 9-18 [facility] Comment on above: Order Comment: Speci men Type: BLOOD SPECIMENOrdering Facility: [facility] Address: [address] [place] [address] Performed By: #### 1 9123-9, 04898-6 ####[facility] MILLTOWNCLIA [id number] [place] [address] [place] AST [Catalytic activity/Vol] 18 U/L Normal 13-35 [facility] Comment on above: Order Comment: Speci men Type: BLOOD SPECIMENOrdering Facility: [facility] Address: [address] [place] [address] Performed By: #### 1 9123-9, 00708-2 ####[facility] MGWNCSTEFANIEA [id number] [place] [address] [place] Bilirubin [Mass/Vol] 0.4 mg/dL Normal 0.2-1.3 [facility] Comment on above: Order Comment: Speci men Type: BLOOD SPECIMENOrdering Facility: [facility] Address: [address] [place] [address] Performed By: #### 1 9123-9, 09178-5 ####[facility] RESEARCH INSTITUTENCFARZANA [id number] [place] [address] [place] Calcium [Mass/Vol] 10.0 mg/dL Normal 8.5-10.2 [facility] Comment on above: Order Comment: Speci men Type: BLOOD SPECIMENOrdering Facility: [facility] Address: [address] [place] [address] Performed By: #### 1 9123-9, 81002-1 ####[facility]EARCH INSTITUTENCSTEFANIEA [id number] [place] [address] [place] Chloride [Moles/Vol] 103 mmol/L Normal 97-105 [facility] Comment on above: Order Comment: Speci men Type: BLOOD SPECIMENOrdering Facility: [facility] Address: [address] [place] [address] Performed By: #### 1 9123-9, 56406-7 ####[facility] RES[facility] INSTITUTENCLIA [id number] [place] [address] [place] CO2 [Moles/Vol] 24 mmol/L Normal 22-30 [facility] Comment on above: Order Comment: Speci men Type: BLOOD SPECIMENOrdering Facility: [facility] Address: [address] [place] [address] Performed By: #### 1 9123-9, 45084-2 ####[facility] RES[facility] INSTITUTENCLIA [id number] [place] [address] [place] Creatinine [Mass/Vol] 0.64 mg/dL Normal 0.58-0.96 [facility] Comment on above: Order Comment: Speci men Type: BLOOD SPECIMENOrdering Facility: [facility] Address: [address] [place] [address] Performed By: #### 1 9123-9, 89234-1 ####[facility] RES[facility] INSTITUTENCLI [id number] [place] [address] [place] Creatinine and Glomerular filtration rate.predicted panel (S/P/Bld) 87 mL/min/1.73m??? Normal >=60 [facility] Comment on above: Order Comment: Zay sandoval Type: BLOOD SPECIMENOrdering Facility: [facility] Address: [address] [place] [address] Result Comment: Marlyn mated Glomerular Filtration Rate (eGFR) is calculated using the 2020 CKD-EPI creatinine equation. This equation utilizes serum creatinine, sex, and age as parameters. The creatinine assay has traceable calibration to isotope dilution-mass spectrometry. Refer to KDIGO guidelines for clinical interpretation. In patients with unstable renal function, e.g. those with acute kidney injury, the eGFR may not accurately reflect actual GFR. Performed By: #### 1 9123-9, 76000-7 ####[facility]ALTHLIA [id number] [place] [address] [place] Glucose [Mass/Vol] 102 mg/dL High 74-99 [facility] Comment on above: Order Comment: Pratibhai lori Type: BLOOD SPECIMENOrdering Facility: [facility] Address: [address] [place] [address] Result Comment: The [place] [employer] (ADA) provides guidance for cutoff values for fasting glucose and random glucose. The ADA defines fasting as no caloric intake for at least 8 hours. Fasting plasma glucose results between 100 to 125 mg/dL indicate increased risk for diabetes (prediabetes).Fasting plasma glucose results greater than or equal to 126 mg/dL meet the criteria for diagnosis of diabetes. In the absence of unequivocal hyperglycemia, results should be confirmed by repeat testing. In a patient with classic symptoms of hyperglycemia or hyperglycemic crisis, random plasma glucose results greater than or equal to 200 mg/dL meet the criteria for diagnosis of diabetes.Reference: Standards of Medical Care in Diabetes 2016, [place] [employer]. Diabetes Care. 2016.39(Suppl 1). Performed By: #### 1 9123-9, 02047-1 ####[facility] MILLTOWNCLIA [id number] [place] [address] [place] Potassium [Moles/Vol] 4.1 mmol/L Normal 3.7-5.1 [facility] Comment on above: Order Comment: Speci men Type: BLOOD SPECIMENOrdering Facility: [facility] Address: [address] [place] [address] Performed By: #### 1 9123-9, ####[facility]ALTHLIA [id number] [place] [address] [place] Protein [Mass/Vol] 7.7 g/dL Normal 6.3-8.0 [facility] Comment on above: Order Comment: Speci men Type: BLOOD SPECIMENOrdering Facility: [facility] Address: [address] [place] [address] Performed By: #### 1 9123-9, ####[facility] CENTERWNCLIA [id number] [place] [address] [place] Sodium [Moles/Vol] 136 mmol/L Normal 136-144 [facility] Comment on above: Order Comment: Speci men Type: BLOOD SPECIMENOrdering Facility: [facility] Address: [address] [place] [address] Performed By: #### 1 9123-9, ####[facility] MILLWNCLIA [id number] [place] [address] [place] Urea nitrogen [Mass/Vol] 26 mg/dL High 7-21 [facility] Comment on above: Order Comment: Speci men Type: BLOOD SPECIMENOrdering Facility: [facility] Address: [address] [place] [address] Performed By: #### 1 9123-9, 99734-9 ####[facility] INSTITUTENCLIA [id number] [place] [address] [place] Magnesium SerPl-mCncon 07-07 Magnesium [Mass/Vol] 1.9 mg/dL Normal 1.7-2.3 [facility] Comment on above: Order Comment: Speci men Type: BLOOD SPECIMENOrdering Facility: [facility] Address: [address] [place] [address] Performed By: #### 1 9123-9, 54827-2 ####[facility] INSTITUTENCLIA [id number] [place] [address] [place] CNPNon 06-17-2023 CNPN Normal [facility] CNPNon 06-11-2023 CNPN Normal [facility] Comprehensive metabolic 2000 panelon 06-10-2023 Albumin [Mass/Vol] 4.0 g/dL Normal 3.9-4.9 [facility] Comment on above: Order Comment: Speci men Type: BLOOD SPECIMENOrdering Facility: [facility] Address: [address] [place] [address] Performed By: #### 2 4323-8 ####[facility] INSTITUTENCLIA [id number] [place] [address] [place] ALP [Catalytic activity/Vol] 90 U/L Normal 34-123 [facility] Comment on above: Order Comment: Speci men Type: BLOOD SPECIMENOrdering Facility: [facility] Address: [address] [place] [address] Performed By: #### 2 4323-8 ####[facility] MILLTOWNCLIA [id number] [place] [address] [place] ALT [Catalytic activity/Vol] 8 U/L Normal 7-38 [facility] Comment on above: Order Comment: Speci men Type: BLOOD SPECIMENOrdering Facility: [facility] Address: [address] [place] [address] Performed By: #### 2 4323-8 ####[facility] MILLTOWNCLIA [id number] [place] [address] [place] Anion gap [Moles/Vol] 8 mmol/L Low 9-18 [facility] System Comment on above: Order Comment: Speci men Type: BLOOD SPECIMENOrdering Facility: [facility] Address: [address] [place] [address] Performed By: #### 2 4323-8 ####[facility] INSTITUTENCLIA [id number] [place] [address] [place] AST [Catalytic activity/Vol] 15 U/L Normal 13-35 [facility] Comment on above: Order Comment: Speci men Type: BLOOD SPECIMENOrdering Facility: [facility] Address: [address] [place] [address] Performed By: #### 2 4323-8 ####[facility] CENTERWNCLIA [id number] [place] [address] [place] Bilirubin [Mass/Vol] 0.4 mg/dL Normal 0.2-1.3 [facility] Comment on above: Order Comment: Speci men Type: BLOOD SPECIMENOrdering Facility: [facility] Address: [address] [place] [address] Performed By: #### 2 4323-8 ####[facility] RESEARCH INSTITUTENCLIA [id number] [place] [address] [place] Calcium [Mass/Vol] 9.1 mg/dL Normal 8.5-10.2 [facility] Comment on above: Order Comment: Speci men Type: BLOOD SPECIMENOrdering Facility: [facility] Address: [address] [place] [address] Performed By: #### 2 4323-8 ####[facility] CENTERWNCLIA [id number] [place] [address] [place] Chloride [Moles/Vol] 102 mmol/L Normal 97-105 [facility] Comment on above: Order Comment: Speci men Type: BLOOD SPECIMENOrdering Facility: [facility] Address: [address] [place] [address] Performed By: #### 2 4323-8 ####[facility]ALTHLIA [id number] [place] [address] [place] CO2 [Moles/Vol] 27 mmol/L Normal 22-30 [facility] Comment on above: Order Comment: Speci men Type: BLOOD SPECIMENOrdering Facility: [facility] Address: [address] [place] [address] Performed By: #### 2 4323-8 ####[facility] [id number] [place] [address] [place] Creatinine [Mass/Vol] 0.59 mg/dL Normal 0.58-0.96 [facility] Comment on above: Order Comment: Speci men Type: BLOOD SPECIMENOrdering Facility: [facility] Address: [address] [place] [address] Performed By: #### 2 4323-8 ####[facility] INSTITUTENCLIA [id number] [place] [address] [place] Creatinine and Glomerular filtration rate.predicted panel (S/P/Bld) 89 mL/min/1.73m??? Normal >=60 [facility] Comment on above: Order Comment: Speci men Type: BLOOD SPECIMENOrdering Facility: [facility] Address: [address] [place] [address] Result Comment: Marlyn mated Glomerular Filtration Rate (eGFR) is calculated using the 2020 CKD-EPI creatinine equation. This equation utilizes serum creatinine, sex, and age as parameters. The creatinine assay has traceable calibration to isotope dilution-mass spectrometry. Refer to KDIGO guidelines for clinical interpretation. In patients with unstable renal function, e.g. those with acute kidney injury, the eGFR may not accurately reflect actual GFR. Performed By: #### 2 4323-8 ####[facility] [id number] [place] [address] [place] Glucose [Mass/Vol] 96 mg/dL Normal 74-99 [facility] Comment on above: Order Comment: Zay sandoval Type: BLOOD SPECIMENOrdering Facility: [facility] Address: [address] [place] [address] Result Comment: The [place] Diabetes Association (ADA) provides guidance for cutoff values for fasting glucose and random glucose. The ADA defines fasting as no caloric intake for at least 8 hours. Fasting plasma glucose results between 100 to 125 mg/dL indicate increased risk for diabetes (prediabetes).Fasting plasma glucose results greater than or equal to 126 mg/dL meet the criteria for diagnosis of diabetes. In the absence of unequivocal hyperglycemia, results should be confirmed by repeat testing. In a patient with classic symptoms of hyperglycemia or hyperglycemic crisis, random plasma glucose results greater than or equal to 200 mg/dL meet the criteria for diagnosis of diabetes.Reference: Standards of Medical Care in Diabetes 2016, [place] [employer]. Diabetes Care. 2016.39(Suppl 1). Performed By: #### 2 4323-8 ####[facility] HEALTHLIA [id number] [place] [address] [place] Potassium [Moles/Vol] 4.1 mmol/L Normal 3.7-5.1 [facility] Comment on above: Order Comment: Zay sandoval Type: BLOOD SPECIMENOrdering Facility: [facility] Address: [address] [place] [address] Performed By: #### 2 4323-8 ####[facility] [id number] [place] [address] [place] Protein [Mass/Vol] 6.9 g/dL Normal 6.3-8.0 [facility] Comment on above: Order Comment: Speci men Type: BLOOD SPECIMENOrdering Facility: [facility] Address: [address] [place] [address] Performed By: #### 2 4323-8 ####[facility] [id number] [place] [address] [place] Sodium [Moles/Vol] 137 mmol/L Normal 136-144 [facility] Comment on above: Order Comment: Speci men Type: BLOOD SPECIMENOrdering Facility: [facility] Address: [address] [place] [address] Performed By: #### 2 4323-8 ####[facility] RESEARCH INSTITUTENCFARZANA [id number] [place] [address] [place] Urea nitrogen [Mass/Vol] 21 mg/dL Normal 7-21 [facility] Comment on above: Order Comment: Speci men Type: BLOOD SPECIMENOrdering Facility: [facility] Address: [address] [place] [address] Performed By: #### 2 4323-8 ####[facility] RES[facility] INSTITUTENCLI [id number] [place] [address] [place] CNPNon 06-07-2023 CNPN Normal [facility] CNPNon 06-04-2023 CNPN Normal [facility] CA 125 BLDon 06-02-2023 Cancer Ag 125 Qn 12 [arb'U]/mL <39 U/mL [facility] CBC W Auto Differential pane l (Bld)on 06-02-2023 Basophils (Bld) [#/Vol] 0.06 10*3/uL <0.11 k/uL [facility] Basophils/100 WBC (Bld) 1.3 % [facility] Differential cell count method Nom (Bld) Auto [facility] Eosinophils (Bld) [#/Vol] 0.16 10*3/uL <0.46 k/uL [facility] Eosinophils/100 WBC (Bld) 3.5 % [facility] Erythrocyte distribution width (RBC) [Ratio] 13.3 % 11.5 - 15.0 % [facility] Hematocrit (Bld) [Volume fraction] 39.7 % 36.0 - 46.0 % [facility] Hemoglobin (Bld) [Mass/Vol] 12.5 g/dL 11.5 - 15.5 g/dL [facility] Immature granulocytes (Bld) [#/Vol] <0.10 k/uL [facility] Immature granulocytes/100 WBC (Bld) 0.2 % [facility] Lymphocytes (Bld) [#/Vol] 1.77 10*3/uL 1.00 - 4.00 k/uL [facility] Lymphocytes/100 WBC (Bld) 38.3 % [facility] MCH (RBC) [Entitic mass] 30.9 pg 26.0 - 34.0 pg [facility] MCHC (RBC) [Mass/Vol] 31.5 g/dL 30.5 - 36.0 g/dL [facility] MCV (RBC) [Entitic vol] 98.3 fL 80.0 - 100.0 fL [facility] Monocytes (Bld) [#/Vol] 0.42 10*3/uL <0.87 k/uL [facility] Monocytes/100 WBC (Bld) 9.1 % [facility] Neutrophils (Bld) [#/Vol] 2.20 10*3/uL 1.45 - 7.50 k/uL [facility] Neutrophils/100 WBC (Bld) 47.6 % [facility] Nucleated RBC (Bld) [#/Vol] <0.01 k/uL [facility] Nucleated RBC/100 WBC (Bld) [Ratio] 0.0 /100 WBC [facility] Platelet mean volume (Bld) [Entitic vol] 9.4 fL 9.0 - 12.7 fL [facility] Platelets (Bld) [#/Vol] 262 10*3/uL 150 - 400 k/uL [facility] RBC (Bld) [#/Vol] 4.04 10*6/uL 3.90 - 5.20 m/uL [facility] WBC (Bld) [#/Vol] 4.62 10*3/uL 3.70 - 11.00 k/uL [facility] Basophils (Bld) [#/Vol] 0.06 10*3/uL Normal <0.11 [facility] Comment on above: Order Comment: Speci men Type: BLOOD SPECIMENOrdering Facility: [facility] Address: [address] [place] [address] Performed By: #### 5 7021-8 ####[facility] MILLWNCLIA [id number] [place] [address] [place] Basophils/100 WBC (Bld) 1.3 % Normal [facility] Comment on above: Order Comment: Speci men Type: BLOOD SPECIMENOrdering Facility: [facility] Address: [address] [place] [address] Performed By: #### 5 7021-8 ####[facility]ALTHL[facility] [id number] [place] [address] [place] Differential cell count method Nom (Bld) Auto Normal [facility] Comment on above: Order Comment: Speci men Type: BLOOD SPECIMENOrdering Facility: [facility] Address: [address] [place] [address] Performed By: #### 5 7021-8 ####[facility]ALTHLIA [id number] [place] [address] [place] Eosinophils (Bld) [#/Vol] 0.16 10*3/uL Normal <0.46 [facility] Comment on above: Order Comment: Speci men Type: BLOOD SPECIMENOrdering Facility: [facility] Address: [address] [place] [address] Performed By: #### 5 7021-8 ####[facility]ALTHLIA [id number] [place] [address] [place] Eosinophils/100 WBC (Bld) 3.5 % Normal [facility] Comment on above: Order Comment: Speci men Type: BLOOD SPECIMENOrdering Facility: [facility] Address: [address] [place] [address] Performed By: #### 5 7021-8 ####[facility] RESEARCH INSTITUTEANNIA [id number] [place] [address] [place] Erythrocyte distribution width (RBC) [Ratio] 13.3 % Normal 11.5-15.0 [facility] Comment on above: Order Comment: Speci men Type: BLOOD SPECIMENOrdering Facility: [facility] Address: [address] [place] [address] Performed By: #### 5 7021-8 ####[facility] INSTITUTENCMOUNTAIN [facility] [id number] [place] [address] [place] Hematocrit (Bld) [Volume fraction] 39.7 % Normal 36.0-46.0 [facility] Comment on above: Order Comment: Speci men Type: BLOOD SPECIMENOrdering Facility: [facility] Address: [address] [place] [address] Performed By: #### 5 7021-8 ####[facility] [id number] [place] [address] [place] Hemoglobin (Bld) [Mass/Vol] 12.5 g/dL Normal 11.5-15.5 [facility] Comment on above: Order Comment: Speci men Type: BLOOD SPECIMENOrdering Facility: [facility] Address: [address] [place] [address] Performed By: #### 5 7021-8 ####[facility] [id number] [place] [address] [place] Immature granulocytes (Bld) [#/Vol] 10*3/uL Normal <0.10 [facility] Comment on above: Order Comment: Speci men Type: BLOOD SPECIMENOrdering Facility: [facility] Address: [address] [place] [address] Performed By: #### 5 7021-8 ####[facility] MGWANYILIA [id number] [place] [address] [place] Immature granulocytes/100 WBC (Bld) 0.2 % Normal [facility] Comment on above: Order Comment: Speci men Type: BLOOD SPECIMENOrdering Facility: [facility] Address: [address] [place] [address] Performed By: #### 5 7021-8 ####[facility] [id number] [place] [address] [place] Lymphocytes (Bld) [#/Vol] 1.77 10*3/uL Normal 1.00-4.00 [facility] Comment on above: Order Comment: Speci men Type: BLOOD SPECIMENOrdering Facility: [facility] Address: [address] [place] [address] Performed By: #### 5 7021-8 ####[facility] [id number] [place] [address] [place] Lymphocytes/100 WBC (Bld) 38.3 % Normal [facility] Comment on above: Order Comment: Speci men Type: BLOOD SPECIMENOrdering Facility: [facility] Address: [address] [place] [address] Performed By: #### 5 7021-8 ####[facility] [id number] [place] [address] [place] MCH (RBC) [Entitic mass] 30.9 pg Normal 26.0-34.0 [facility] Comment on above: Order Comment: Speci men Type: BLOOD SPECIMENOrdering Facility: [facility] Address: [address] [place] [address] Performed By: #### 5 7021-8 ####[facility] INSTITUTENCLI [id number] [place] [address] [place] MCHC (RBC) [Mass/Vol] 31.5 g/dL Normal 30.5-36.0 [facility] Comment on above: Order Comment: Speci men Type: BLOOD SPECIMENOrdering Facility: [facility] Address: [address] [place] [address] Performed By: #### 5 7021-8 ####[facility] [id number] [place] [address] [place] MCV (RBC) [Entitic vol] 98.3 fL Normal 80.0-100.0 [facility] Comment on above: Order Comment: Speci men Type: BLOOD SPECIMENOrdering Facility: [facility] Address: [address] [place] [address] Performed By: #### 5 7021-8 ####[facility] [id number] [place] [address] [place] Monocytes (Bld) [#/Vol] 0.42 10*3/uL Normal <0.87 [facility] Comment on above: Order Comment: Speci men Type: BLOOD SPECIMENOrdering Facility: [facility] Address: [address] [place] [address] Performed By: #### 5 7021-8 ####[facility] [id number] [place] [address] [place] Monocytes/100 WBC (Bld) 9.1 % Normal [facility] Comment on above: Order Comment: Speci men Type: BLOOD SPECIMENOrdering Facility: [facility] Address: [address] [place] [address] Performed By: #### 5 7021-8 ####[facility] [id number] [place] [address] [place] Neutrophils (Bld) [#/Vol] 2.20 10*3/uL Normal 1.45-7.50 [facility] Comment on above: Order Comment: Speci men Type: BLOOD SPECIMENOrdering Facility: [facility] Address: [address] [place] [address] Performed By: #### 5 7021-8 ####[facility] INSTITUTENCLIA [id number] [place] [address] [place] Neutrophils/100 WBC (Bld) 47.6 % Normal [facility] Comment on above: Order Comment: Speci men Type: BLOOD SPECIMENOrdering Facility: [facility] Address: [address] [place] [address] Performed By: #### 5 7021-8 ####[facility]ALTHL[facility] [id number] [place] [address] [place] Nucleated RBC (Bld) [#/Vol] 10*3/uL Normal <0.01 [facility] Comment on above: Order Comment: Speci men Type: BLOOD SPECIMENOrdering Facility: [facility] Address: [address] [place] [address] Performed By: #### 5 7021-8 ####[facility] [id number] [place] [address] [place] Nucleated RBC/100 WBC (Bld) [Ratio] 0.0 /100 WBC Normal [facility] Comment on above: Order Comment: Speci men Type: BLOOD SPECIMENOrdering Facility: [facility] Address: [address] [place] [address] Performed By: #### 5 7021-8 ####[facility]ALTHL[facility] [id number] [place] [address] [place] Platelet mean volume (Bld) [Entitic vol] 9.4 fL Normal 9.0-12.7 [facility] Comment on above: Order Comment: Speci men Type: BLOOD SPECIMENOrdering Facility: [facility] Address: [address] [place] [address] Performed By: #### 5 7021-8 ####[facility]ALTHLI [id number] [place] [address] [place] Platelets (Bld) [#/Vol] 262 10*3/uL Normal 150-400 [facility] Comment on above: Order Comment: Speci men Type: BLOOD SPECIMENOrdering Facility: [facility] Address: [address] [place] [address] Performed By: #### 5 7021-8 ####[facility] RESE[facility] INSTITUTEANNIA [id number] [place] [address] [place] RBC (Bld) [#/Vol] 4.04 10*6/uL Normal 3.90-5.20 [facility] Comment on above: Order Comment: Speci men Type: BLOOD SPECIMENOrdering Facility: [facility] Address: [address] [place] [address] Performed By: #### 5 7021-8 ####[facility] HOSPITALDavid [id number] [place] [address] [place] WBC (Bld) [#/Vol] 4.62 10*3/uL Normal 3.70-11.00 [facility] Comment on above: Order Comment: Speci men Type: BLOOD SPECIMENOrdering Facility: [facility] Address: [address] [place] [address] Performed By: #### 5 7021-8 ####[facility] INSTITUTENCLIA [id number] [place] [address] [place] CNOVSPon 06-02-2023 CNOVSP Normal [facility] CNPNon 06-02-2023 CNPN Normal [facility] Cancer Ag125 SerPl-aCncon Cancer Ag 125 Qn 12 [arb'U]/mL Normal <39 [facility] Comment on above: Order Comment: Speci men Type: BLOOD SPECIMENOrdering Facility: [facility] Address: [address] [place] [address] Result Comment: CA 1 25 test methodology used is the Electrochemiluminescence Immunoassay by [employer]. Results obtained with different methods or kits cannot be used interchangeably.The reference interval is based on the 95th percentile of 240 apparently healthy premenopausal and postmenopausal women. At a cutoff value of 65 U/mL, the test sensitivity to distinguish ovarian carcinoma (FIGO stage I to IV) versus benign gynecological disease is 79%, with a specificity of 82%.Reference: Cancer Antigen 125 (CA 125 II) [package insert V 1.0 [employer], [place], [place] (May 2015) Performed By: #### 1 0334-1 ####[facility] LABCLIA [id number] [place] [address] [place] Comprehensive metabolic 2000 panelon 06-02-2023 Albumin [Mass/Vol] 4.3 g/dL 3.9 - 4.9 g/dL [facility] ALP [Catalytic activity/Vol] 87 U/L 34 - 123 U/L [facility] ALT [Catalytic activity/Vol] 9 U/L 7 - 38 U/L [facility] Anion gap [Moles/Vol] 11 mmol/L 9 - 18 mmol/L [facility] AST [Catalytic activity/Vol] 15 U/L 13 - 35 U/L [facility] Bilirubin [Mass/Vol] 0.2 mg/dL 0.2 - 1 .3 mg/dL [facility] Calcium [Mass/Vol] 9.4 mg/dL 8.5 - 10. 2 mg/dL [facility] Chloride [Moles/Vol] 101 mmol/L 97 - 10 5 mmol/L [facility] CO2 [Moles/Vol] 26 mmol/L 22 - 30 mmol/L [facility] Creatinine [Mass/Vol] 0.66 mg/dL 0.58 - 0.96 mg/dL [facility] Estimated Glomerular Filtration Rate 87 mL/min/1.73m >=60 mL/min/1.7 3m [facility] Glucose [Mass/Vol] 116 mg/dL High 74 - 99 mg/dL [facility] Potassium [Moles/Vol] 4.1 mmol/L 3.7 - 5.1 mmol/L [facility] Protein [Mass/Vol] 7.3 g/dL 6.3 - 8.0 g/dL [facility] Sodium [Moles/Vol] 138 mmol/L 136 - 144 mmol/L [facility] Urea nitrogen [Mass/Vol] 17 mg/dL 7 - 21 mg/dL [facility] Albumin [Mass/Vol] 4.3 g/dL Normal 3.9-4.9 [facility] Comment on above: Order Comment: Speci men Type: BLOOD SPECIMENOrdering Facility: [facility] Address: [address] [place] [address] Performed By: #### 1 9123-9, 98094-7 ####[facility] MILLTOWNCLIA [id number] [place] [address] [place] ALP [Catalytic activity/Vol] 87 U/L Normal 34-123 [facility] Comment on above: Order Comment: Speci men Type: BLOOD SPECIMENOrdering Facility: [facility] Address: [address] [place] [address] Performed By: #### 1 9123-9, 02474-2 ####[facility]ALTHL[facility] [id number] [place] [address] [place] ALT [Catalytic activity/Vol] 9 U/L Normal 7-38 [facility] Comment on above: Order Comment: Speci men Type: BLOOD SPECIMENOrdering Facility: [facility] Address: [address] [place] [address] Performed By: #### 1 9123-9, 76944-4 ####[facility]ALTHLIA [id number] [place] [address] [place] Anion gap [Moles/Vol] 11 mmol/L Normal 9-18 [facility] Comment on above: Order Comment: Speci men Type: BLOOD SPECIMENOrdering Facility: [facility] Address: [address] [place] [address] Performed By: #### 1 9123-9, 17714-8 ####[facility] CENTERWNCLIA [id number] [place] [address] [place] AST [Catalytic activity/Vol] 15 U/L Normal 13-35 [facility] Comment on above: Order Comment: Speci men Type: BLOOD SPECIMENOrdering Facility: [facility] Address: [address] [place] [address] Performed By: #### 1 9123-9, 06290-0 ####[facility]ARCH INSTITUTENCLIA [id number] [place] [address] [place] Bilirubin [Mass/Vol] 0.2 mg/dL Normal 0.2-1.3 [facility] Comment on above: Order Comment: Speci men Type: BLOOD SPECIMENOrdering Facility: [facility] Address: [address] [place] [address] Performed By: #### 1 9123-9, 32011-3 ####[facility] IN[facility]UTENCM[facility] [id number] [place] [address] [place] Calcium [Mass/Vol] 9.4 mg/dL Normal 8.5-10.2 [facility] Comment on above: Order Comment: Speci men Type: BLOOD SPECIMENOrdering Facility: [facility] Address: [address] [place] [address] Performed By: #### 1 9123-9, 66478-5 ####[facility] RESE[facility] INSTITUTENCA [id number] [place] [address] [place] Chloride [Moles/Vol] 101 mmol/L Normal 97-105 [facility] Comment on above: Order Comment: Speci men Type: BLOOD SPECIMENOrdering Facility: [facility] Address: [address] [place] [address] Performed By: #### 1 9123-9, 32010-8 ####[facility] RES[facility] INSTITUTENCLIA [id number] [place] [address] [place] CO2 [Moles/Vol] 26 mmol/L Normal 22-30 [facility] Comment on above: Order Comment: Speci men Type: BLOOD SPECIMENOrdering Facility: [facility] Address: [address] [place] [address] Performed By: #### 1 9123-9, 67017-9 ####[facility] [id number] [place] [address] [place] Creatinine [Mass/Vol] 0.66 mg/dL Normal 0.58-0.96 [facility] Comment on above: Order Comment: Speci men Type: BLOOD SPECIMENOrdering Facility: [facility] Address: [address] [place] [address] Performed By: #### 1 9123-9, 58265-7 ####[facility] RES[facility] INSTITUTENCLI [id number] [place] [address] [place] Creatinine and Glomerular filtration rate.predicted panel (S/P/Bld) 87 mL/min/1.73m??? Normal >=60 [facility] Comment on above: Order Comment: Speci men Type: BLOOD SPECIMENOrdering Facility: [facility] Address: [address] [place] [address] Result Comment: Marlyn mated Glomerular Filtration Rate (eGFR) is calculated using the 2020 CKD-EPI creatinine equation. This equation utilizes serum creatinine, sex, and age as parameters. The creatinine assay has traceable calibration to isotope dilution-mass spectrometry. Refer to KDIGO guidelines for clinical interpretation. In patients with unstable renal function, e.g. those with acute kidney injury, the eGFR may not accurately reflect actual GFR. Performed By: #### 1 9123-9, 79592-5 ####[facility]ALTHL[facility] [id number] [place] [address] [place] Glucose [Mass/Vol] 116 mg/dL High 74-99 [facility] Comment on above: Order Comment: Speci men Type: BLOOD SPECIMENOrdering Facility: [facility] Address: [address] [place] [address] Result Comment: The [place] [employer] (ADA) provides guidance for cutoff values for fasting glucose and random glucose. The ADA defines fasting as no caloric intake for at least 8 hours. Fasting plasma glucose results between 100 to 125 mg/dL indicate increased risk for diabetes (prediabetes).Fasting plasma glucose results greater than or equal to 126 mg/dL meet the criteria for diagnosis of diabetes. In the absence of unequivocal hyperglycemia, results should be confirmed by repeat testing. In a patient with classic symptoms of hyperglycemia or hyperglycemic crisis, random plasma glucose results greater than or equal to 200 mg/dL meet the criteria for diagnosis of diabetes.Reference: Standards of Medical Care in Diabetes 2016, [place] [employer]. Diabetes Care. 2016.39(Suppl 1). Performed By: #### 1 9123-9, 89303-8 ####[facility] MILLTOWNCLIA [id number] [place] [address] [place] Potassium [Moles/Vol] 4.1 mmol/L Normal 3.7-5.1 [facility] Comment on above: Order Comment: Speci men Type: BLOOD SPECIMENOrdering Facility: [facility] Address: [address] [place] [address] Performed By: #### 1 9123-9, ####[facility] MILLJUANWANYILIA [id number] [place] [address] [place] Protein [Mass/Vol] 7.3 g/dL Normal 6.3-8.0 [facility] Comment on above: Order Comment: Speci men Type: BLOOD SPECIMENOrdering Facility: [facility] Address: [address] [place] [address] Performed By: #### 1 91239, ####[facility] MILLTOWNCLIA [id number] [place] [address] [place] Sodium [Moles/Vol] 138 mmol/L Normal 136-144 [facility] Comment on above: Order Comment: Speci men Type: BLOOD SPECIMENOrdering Facility: [facility] Address: [address] [place] [address] Performed By: #### 1 9123-9, ####[facility] [id number] [place] [address] [place] Urea nitrogen [Mass/Vol] 17 mg/dL Normal 7-21 [facility] Comment on above: Order Comment: Speci men Type: BLOOD SPECIMENOrdering Facility: [facility] Address: [address] [place] [address] Performed By: #### 1 9123-9, 57516-5 ####[facility] [id number] [place] [address] [place] HBV core Ab Ser Qlon 023 HBV core Ab Ql (S) Negative Normal Negative [facility] Comment on above: Order Comment: Speci men Type: BLOOD SPECIMENOrdering Facility: [facility] Address: [address] [place] [address] Result Comment: No e vidence of current or past infection with Hepatitis B virus. Should recent infection be suspected, repeat testing may be considered 3-4 weeks after this draw. Performed By: #### 5 195-3, 18981-1, 32172-1 ####[facility] LABCLIA [id number] [address] [place] HBV surface Ab Ql (S)on 05-10 HBV surface Ab Qn (S) <8.00 Normal [facility] Comment on above: Order Comment: Speci men Type: BLOOD SPECIMENOrdering Facility: [facility] Address: [address] [place] [address] Result Comment: <8 m IU/mL: No serological evidence of immunity to Hepatitis B Virus.>/= 8 to <12 mIU/mL: No serological evidence of immunity to Hepatitis B Virus.>/= 12 mIU/mL: Consistent with serological evidence of immunity to Hepatitis B Virus. Performed By: #### 5 195-3, 56265-6, 24983-4 ####[facility] LABCLIA [id number] [place] [address] [place] HBV surface Ab Ser Qlon 05-10 HBV surface Ab Ql (S) Negative Normal [facility] Comment on above: Order Comment: Speci men Type: BLOOD SPECIMENOrdering Facility: [facility] Address: [address] [place] [address] Result Comment: No s erological evidence of immunity to Hepatitis B Virus. Performed By: #### 5 195-3, 52758-2, 99982-3 ####[facility] LABCLIA [id number] [place] [address] [place] HBV surface Ag Ser Qlon 05-10 HBV surface Ag Ql (S) Negative Normal Negative [facility] Comment on above: Order Comment: Speci men Type: BLOOD SPECIMENOrdering Facility: [facility] Address: [address] [place] [address] Performed By: #### 5 195-3, 23456-7, 76779-2 ####[facility] LABCLIA [id number] [place] [address] [place] HCV Ab Ser Qlon 06-02-2023 HCV Ab Ql (S) Negative Normal Negative [facility] Comment on above: Order Comment: Speci men Type: BLOOD SPECIMENOrdering Facility: [facility] Address: [address] [place] [address] Result Comment: The result suggests no evidence of active infection with Hepatitis C virus. Should recent infection be suspected, repeat testing may be considered 4-6 weeks after this draw. Performed By: #### 1 6128-1 ####[facility] LABCLIA [id number] [place] [address] [place] MAGNESIUM BLDon 06-02-2023 Magnesium [Mass/Vol] 2.1 mg/dL 1.7 - 2 .3 mg/dL [facility] Magnesium SerPl-mCncon 06-02 Magnesium [Mass/Vol] 2.1 mg/dL Normal 1.7-2.3 [facility] Comment on above: Order Comment: Speci men Type: BLOOD SPECIMENOrdering Facility: [facility] Address: [place] [address] Performed By: #### 1 9123-9, 02610-2 ####[facility] H[facility]ITALFARZANA [id number] [place] [address] [place] CNOVon 05-17-2023 CNOV Normal [facility] CNPNon 05-13-2023 CNPN Normal [facility] CNPNon 05-11-2023 CNPN Normal [facility] CNOVSPon 05-03-2023 CNOVSP Visit (SP) Office (G YNML) ----- STEFANO WASHINGTON ([id number]) 1940 F Date Time Provider Department 05/03/23 4:45 PM ELIOT CASTILLO GYN During your visit today, we recorded the following information about you: Temperature Pulse Blood pressure Weight 97.5 degrees 93/minute 144/66 72.9 kg Eliot Castillo MD 05/04/2023 4:46 AM Signed Gynecologic Oncology [facility] Postop Re: Stefano Washington [facility]#: [id number] Date of Service: 05/03/2023 Dr. 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 Briefly, she is an 83 year old female with a past medical history of hypothyroidism, aortic stenosis, hypertension, hiatal hernia, PE, GERD, PE who was initially referred for the evaluation of pelvic mass. TREATMENT HISTORY: 03/09/23 CT A/P 1. Nearly 16 cm mixed cystic and solid pelvic mass likely arising from the right ovary likely reflecting an ovarian epithelial tumor. Small volume pelvic ascites. Gynecological oncologic consultation is advised. 2. Mild bilateral hydronephrosis. 3. Giant hiatal hernia, as described. 03/22/2023 Consult: 83yo female presents with her family for a consult from Dr. Graves regarding a pelvic mass. Daughter reports that her mother developed PE after Covid infection, on Eliquis for 6 months and discontinued a year ago. Patient is taking laxatives for management of constipation. Reviewed her CTAP from 03/09/2023 showing ~ 16 cm mixed cystic and solid pelvic mass and small volume pelvic ascites. No evidence of metastasis on imaging. Discussed a plan for surgery to remove the mass. I don't recommend a biopsy as if the mass is cancerous, there is a chance that it will spread the cancer cells. Given the large size of her mass, I recommend an open surgery to remove the uterus, cervix, tubes, ovaries. Reviewed the possibility of benign, borderline, or malignant on intraoperative frozen section pathology. If a borderline or invasive malignancy is found, we will perform comprehensive staging with possible removal of lymph nodes, omentum, biopsies, tumor, possible bowel resection, possible blood product transfusion. Patient expressed understanding and agreement with the plan. An informed consent for surgery was signed. Will have scheduling office contact patient regarding a date for surgery. Plan to obtain preop imaging and blood work for tumor markers. Component Latest Ref Rng AND Units 03/22/2023 CA 125 <39 U/mL 111 (H) CA19-9 <36.0 U/mL 48.0 (H) CEA <=2.9 ng/mL 3.4 (H) 04/07/2023 Exploratory laparotomy, ERIKA-BSO, right pelvic and bilateral periaortic lymphadenectomy, peritoneal biopsies, omentectomy, appendectomy PREOPERATIVE DIAGNOSIS: Right ovarian mass, slightly elevated CA-125, ascites. POSTOPERATIVE DIAGNOSIS: Probable stage IC, pending final pathology, endometrioid tumor of at least borderline malignant potential. PELVIC WASHING Negative for malignant cells. Findings: Large solid mass with cystic component with purulent drainage. Found to be ruptured once in the abdomen. No evidence of small or large bowel disease. Liver and diaphragmatic surfaces smooth. Small ascites on entry. Normal appearing uterus, bilateral fallopian tubes, left ovary. Slightly enlarged para-aortic lymph nodes bilaterally. Small amount of endometriosis found in the right pelvic peritoneum. FINAL DIAGNOSIS A. Right ovary and fallopian tube, salpingo-oophorectomy: - Ovary: Endometrioid adenocarcinoma with squamous differentiation, FIGO grade 1, in a background of endometrioid borderline tumor; see comment. - Fallopian tube: No significant pathologic abnormality. B. Uterus, cervix, left ovary and fallopian tube, hysterectomy with left salpingo-oophorectomy: - Cervix: No significant pathologic abnormality. - Endometrium: Atrophy. - Myometrium: Adenomyosis. - Serosa: Adhesions. - Left ovary: No significant pathologic abnormality. - Left fallopian tube: No significant pathologic abnormality. C. Left pelvic peritoneum, biopsy: Non-diagnostic specimen, tissue did not survive processing. D. Cul-de-sac peritoneum, biopsy: Benign fibrovascular tissue. E. Bladder peritoneum, biopsy: Benign fibrovascular tissue with chronic inflammation. F. Right pelvic peritoneum, biopsy: Benign fibrovascular tissue with inflammation and hemosiderin laden macrophages. G. Lymph nodes, right pelvic, dissection: Nine benign lymph nodes (0/9). H. Lymph nodes, left para-aortic, excision: Two benign lymph nodes (0/2). I. Peritoneum over right ureter, biopsy: Benign fibroadipose tissue. J. Lymph nodes, right para-aortic, excision: Three benign lymph nodes (0/3). K. Left paracolic gutter peritoneum, biopsy: Benign fibroadipose tissue. L. Right paracolic gutter peritoneum, biopsy: Benign fibroadipose tissue. (more content not included)... Normal [facility] 05-03-2023 [facility] Normal [facility] 04-21-2023 [facility] Telephone ([facility]) ----- STEFANO WASHINGTON ([id number]) 1940 F Date Time Provider Department 04/21/23 ANNMARIE MENDOZA [facility] During your visit today, we recorded the following information about you: Annmarie Mendoza APRN.PARATRANSIT DRIVER 04/21/2023 4:19 PM Signed [facility] facility calling to report some redness mainly to upper 1/4 of incision. They wanted to know if they should remove the markus today (day 14 post op). No drainage, fever/chills. Believes could be related to moisture as this is where patients skin folds down and it seems moist in this area. Orders given to remove markus as likely causing some irritation. Keep area clean and dry, wash with antibacterial soap. Staff will also try inter dry to moist areas and folds of abdomen. Call office with any changes and can bring patient in for sooner post op appt, currently scheduled with on 05/03. Annmarie Mendoza APRN.PARATRANSIT DRIVER Allergies As of Date: 04/21/2023 Noted Allergy Reaction MACROBID (NITROFURANTOIN MONOHYD/*01/21/2023 8 - GI Upset Date Reviewed: 04/14/2023 Reviewed by: Karoline Sheldon RN - Fully Assessed Reason for Visit: Patient Update [1234] Prescriptions as of 04/21/2023 - acetaminophen (TYLENOL) 500 mg tablet Take 1-2 tablets by mouth every 6 hours. - docusate sodium (COLACE) 100 mg capsule Take 1 capsule by mouth twice daily as needed. - enoxaparin (LOVENOX) 40 mg/0.4 mL Inject 0.4 mL subcutaneously every 24 hours for 20 days. - ondansetron orally disintegrating (ZOFRAN ODT) 4 mg disintegrating tablet Take 1 tablet by mouth every 6 hours as needed. - oxyCODONE IR (ROXICODONE) 5 mg immediate release tablet Take 1 tablet by mouth every 6 hours as needed. - prochlorperazine (COMPAZINE) 10 mg tablet Take 1 tablet by mouth every 6 hours as needed. - phosphorus (K PHOS NEUTRAL) 250 mg tablet Take 1 tablet by mouth twice daily. - traMADol (ULTRAM) 50 mg tablet Take 1 tablet by mouth twice daily for 90 days. for arthritis pain. - lovastatin 40 mg tablet Take 1 tablet by mouth daily at bedtime. For cholesterol. - NIFEdipine ER (PROCARDIA XL) 30 mg 24 hr tablet Take 1 tablet by mouth once daily. - omeprazole (PRILOSEC) 20 mg capsule Take 1 capsule by mouth once daily. - levothyroxine (SYNTHROID) 88 mcg tablet take one tablet by mouth wednesday through wednesday and none on wednesday. - THERAPEUTIC MULTIVITAMIN TAB daily - Calcium-Cholecalciferol (D3) 500-200 mg-unit ORAL Tab Take one(1) tablet two(2) times daily. Facility-Administered Medications as of 04/21/2023 - perflutren lipid microspheres 1.3 mL in NaCl (PF) 0.9% 10 mL injection (DEFINITY) - sodium chloride 0.9 % (flush) 10 mL (BD POSIFLUSH) Problem List As Of Date 04/21/2023 Noted Resolved Essential hypertension [I10] 10/20/2005 Osteopenia [M85.80] 11/24/2006 Acute gastritis without mention of hemorrhage [*02/14/2009 12/07/2014 Iron deficiency anemia, unspecified [D50.9] 02/14/2009 05/10/2018 Mixed hyperlipidemia [E78.2] 04/15/2011 Pain in joint, pelvic region and thigh [M25.559]10/27/2012 11/28/2012 Enthesopathy of hip region [M76.899] 10/27/2012 11/28/2012 Acquired hypothyroidism [E03.9] 07/12/2015 Gastroesophageal reflux disease without esophag*07/12/2015 Osteoarthritis of multiple joints [M15.9] 07/12/2015 Acute right-sided low back pain with right-side*05/13/2016 Medicare annual wellness visit, subsequent [Z00*02/26/2017 Screening for colon cancer [Z12.11] 02/26/2017 Chronic pain of right knee [M25.561, G89.29] 10/29/2017 Medication management [Z79.899] 09/20/2018 Iron deficiency anemia, unspecified [D50.9] Pneumonia due to COVID-19 virus [U07.1, J12.82] 05/07/2021 History of pulmonary embolism [Z86.711] 06/06/2021 Hiatal hernia [K44.9] 06/18/2021 Acute respiratory failure (HCC) [J96.00] 06/18/2021 10/09/2021 Age-related physical debility [R54] 06/18/2021 Aortic stenosis, moderate [I35.0] 12/19/2021 Advance directive discussed with patient [Z71.8*06/26/2022 Sciatica, right side [M54.31] 02/02/2023 Falls, subsequent encounter [W19.XXXD] 02/02/2023 Other hydronephrosis [N13.39] 03/10/2023 Ovarian mass, right [N83.8] 03/10/2023 Red blood cell antibody positive [R76.8] 04/02/2023 Pre-op evaluation [Z01.818] 04/06/2023 Pelvic mass [R19.00] 04/07/2023 Obesity, Class I, BMI 30-34.9 [E66.9] 04/10/2023 Encounter Status:Closed by ANNMARIE MENDOZA on 04/21/23 Normal [facility] CASE MANAGEMon 04-14-2023 CASE MANAGEM Normal [facility] CASE MANAGEM Normal [facility] CBC panel Auto (Bld)on 04-14 Erythrocyte distribution width (RBC) [Ratio] 13.2 % Normal 11.5-15.0 [facility] Comment on above: Order Comment: Speci men Type: BLOOD SPECIMENOrdering Facility: [facility] Address: [address] [place] [address] Performed By: #### 5 8410-2 ####[facility] LABCLIA [id number] [place] [address] [place] Hematocrit (Bld) [Volume fraction] 34.2 % Low 36.0-46.0 [facility] Comment on above: Order Comment: Speci men Type: BLOOD SPECIMENOrdering Facility: [facility] Address: [address] [place] [address] Performed By: #### 5 8410-2 ####[facility] LABCLIA [id number] [place] [address] [place] Hemoglobin (Bld) [Mass/Vol] 10.9 g/dL Low 11.5-15.5 [facility] Comment on above: Order Comment: Speci men Type: BLOOD SPECIMENOrdering Facility: [facility] Address: [address] [place] [address] Performed By: #### 5 8410-2 ####[facility] LABCLIA [id number] [place] [address] [place] MCH (RBC) [Entitic mass] 32.1 pg Normal 26.0-34.0 [facility] Comment on above: Order Comment: Speci men Type: BLOOD SPECIMENOrdering Facility: [facility] Address: [address] [place] [address] Performed By: #### 5 8410-2 ####[facility] [id number] [address] [place] MCHC (RBC) [Mass/Vol] 31.9 g/dL Normal 30.5-36.0 [facility] Comment on above: Order Comment: Speci men Type: BLOOD SPECIMENOrdering Facility: [facility] Address: [address] [place] [address] Performed By: #### 5 8410-2 ####[facility] [id number] [address] [place] MCV (RBC) [Entitic vol] 100.6 fL High 80.0-100.0 [facility] Comment on above: Order Comment: Speci men Type: BLOOD SPECIMENOrdering Facility: [facility] Address: [address] [place] [address] Performed By: #### 5 8410-2 ####[facility] [id number] [place] [address] [place] Nucleated RBC (Bld) [#/Vol] 10*3/uL Normal <0.01 [facility] Comment on above: Order Comment: Speci men Type: BLOOD SPECIMENOrdering Facility: [facility] Address: [address] [place], [place] [address] Performed By: #### 5 8410-2 ####[facility] [id number] [address] [place] Platelet mean volume (Bld) [Entitic vol] 9.8 fL Normal 9.0-12.7 [facility] Comment on above: Order Comment: Speci men Type: BLOOD SPECIMENOrdering Facility: [facility] Address: [address] [place], [place] [address] Performed By: #### 5 8410-2 ####[facility] LABCLIA [id number] [place] [address] [place] Platelets (Bld) [#/Vol] 315 10*3/uL Normal 150-400 [facility] Comment on above: Order Comment: Speci men Type: BLOOD SPECIMENOrdering Facility: [facility] Address: [address] Performed By: #### 5 8410-2 ####[facility] LABCLIA [id number] [place] [address] [place] RBC (Bld) [#/Vol] 3.40 10*6/uL Low 3.90-5.20 [facility] Comment on above: Order Comment: Speci men Type: BLOOD SPECIMENOrdering Facility: [facility] Address: [address] [place], [place] [address] Performed By: #### 5 8410-2 ####[facility] LABCLIA [id number] [place] [address] [place] WBC (Bld) [#/Vol] 5.40 10*3/uL Normal 3.70-11.00 [facility] Comment on above: Order Comment: Speci men Type: BLOOD SPECIMENOrdering Facility: [facility] Address: [address] [place], [place] [address] Performed By: #### 5 8410-2 ####[facility] LABCLIA [id number] [place] [address] [place] CNDSon 04-14-2023 CNDS Normal [facility] Comprehensive metabolic 2000 panelon 04-14-2023 Albumin [Mass/Vol] 3.1 g/dL Low 3.9-4.9 [facility] Comment on above: Order Comment: Speci men Type: BLOOD SPECIMENOrdering Facility: [facility] Address: [address] [place], [place] [address] Performed By: #### 1 9123-9, 27702-06, 99906-3 ####[facility] LABCLIA [id number] [place] [address] [place] ALP [Catalytic activity/Vol] 63 U/L Normal 34-123 [facility] Comment on above: Order Comment: Speci men Type: BLOOD SPECIMENOrdering Facility: [facility] Address: [address] [place], [place] [address] Performed By: #### 1 9123-9, 27702-06, ####[facility] LABCLIA [id number] [place] [address] [place] ALT [Catalytic activity/Vol] 22 U/L Normal 7-38 [facility] Comment on above: Order Comment: Speci men Type: BLOOD SPECIMENOrdering Facility: [facility] Address: [address] [place], [place] [address] Performed By: #### 1 9123-9, 2776-08, ####[facility] LABCLIA [id number] [place] [address] [place] Anion gap [Moles/Vol] 12 mmol/L Normal 9-18 [facility] Comment on above: Order Comment: Speci men Type: BLOOD SPECIMENOrdering Facility: [facility] Address: [address] [place] [address] Performed By: #### 1 9123-9, 27702-06, 36376-9 ####[facility] LABCLIA [id number] [place] [address] [place] AST [Catalytic activity/Vol] 31 U/L Normal 13-35 [facility] Comment on above: Order Comment: Speci men Type: BLOOD SPECIMENOrdering Facility: [facility] Address: [address] [place] [address] Performed By: #### 1 9123-9, 27702-06, 55108-8 ####[facility] LABCLIA [id number] [place] [address] [place] Bilirubin [Mass/Vol] 0.4 mg/dL Normal 0.2-1.3 [facility] Comment on above: Order Comment: Speci men Type: BLOOD SPECIMENOrdering Facility: [facility] Address: [address] Performed By: #### 1 9123-9, 2777, ####[facility] LABCLIA [id number] [place] [address] [place] Calcium [Mass/Vol] 8.6 mg/dL Normal 8.5-10.2 [facility] Comment on above: Order Comment: Speci men Type: BLOOD SPECIMENOrdering Facility: [facility] Address: [address] [place], [place] [address] Performed By: #### 1 9123-9, 2776-08, ####[facility] LABCLIA [id number] [place] [address] [place] Chloride [Moles/Vol] 103 mmol/L Normal 97-105 [facility] Comment on above: Order Comment: Speci men Type: BLOOD SPECIMENOrdering Facility: [facility] Address: [address] [place] [address] Performed By: #### 1 9123-9, 27702-06, 53390-7 ####[facility] LABCLIA [id number] [place] [address] [place] CO2 [Moles/Vol] 22 mmol/L Normal 22-30 [facility] Comment on above: Order Comment: Speci men Type: BLOOD SPECIMENOrdering Facility: [facility] Address: [address] [place] [address] Performed By: #### 1 9123-9, 2777-, 05091-9 ####[facility] LABIA [id number] [place] [address] [place] Creatinine [Mass/Vol] 0.55 mg/dL Low 0.58-0.96 [facility] Comment on above: Order Comment: Speclisbeth men Type: BLOOD SPECIMENOrdering Facility: [facility] Address: [address] [place] [address] Performed By: #### 1 9123-9, 2777-, 24762-3 ####[facility] LABIA [id number] [address] [place] Creatinine and Glomerular filtration rate.predicted panel (S/P/Bld) 91 mL/min/1.73m??? Normal >=60 [facility] Comment on above: Order Comment: Zay sandoval Type: BLOOD SPECIMENOrdering Facility: [facility] Address: [address] [place] [address] Result Comment: Marlyn mated Glomerular Filtration Rate (eGFR) is calculated using the 2020 CKD-EPI creatinine equation. This equation utilizes serum creatinine, sex, and age as parameters. The creatinine assay has traceable calibration to isotope dilution-mass spectrometry. Refer to KDIGO guidelines for clinical interpretation. In patients with unstable renal function, e.g. those with acute kidney injury, the eGFR may not accurately reflect actual GFR. Performed By: #### 1 9123-9, 2777-, 50945-0 ####[facility] LABIA [id number] [place] [address] [place] Glucose [Mass/Vol] 106 mg/dL High 74-99 [facility] Comment on above: Order Comment: Zay men Type: BLOOD SPECIMENOrdering Facility: [facility] Address: [address] [place] [address] Result Comment: The [place] [employer] (ADA) provides guidance for cutoff values for fasting glucose and random glucose. The ADA defines fasting as no caloric intake for at least 8 hours. Fasting plasma glucose results between 100 to 125 mg/dL indicate increased risk for diabetes (prediabetes).Fasting plasma glucose results greater than or equal to 126 mg/dL meet the criteria for diagnosis of diabetes. In the absence of unequivocal hyperglycemia, results should be confirmed by repeat testing. In a patient with classic symptoms of hyperglycemia or hyperglycemic crisis, random plasma glucose results greater than or equal to 200 mg/dL meet the criteria for diagnosis of diabetes.Reference: Standards of Medical Care in Diabetes 2016, [place] [employer]. Diabetes Care. 2016.39(Suppl 1). Performed By: #### 1 9123-9, 2777, 33415-4 ####[facility] LABIA [id number] [place] [address] [place] Potassium [Moles/Vol] 3.7 mmol/L Normal 3.7-5.1 [facility] Comment on above: Order Comment: Speci men Type: BLOOD SPECIMENOrdering Facility: [facility] Address: [address] [address] Performed By: #### 1 9123-9, 2776-08, ####[facility] [id number] [place] [address] [place] Protein [Mass/Vol] 5.9 g/dL Low 6.3-8.0 [facility] Comment on above: Order Comment: Speci men Type: BLOOD SPECIMENOrdering Facility: [facility] Address: [address] [place] [address] Performed By: #### 1 9123-9, 27702-06, 21028-1 ####[facility] LABIA [id number] [place] [address] [place] Sodium [Moles/Vol] 137 mmol/L Normal 136-144 [facility] Comment on above: Order Comment: Speci men Type: BLOOD SPECIMENOrdering Facility: [facility] Address: [address] [place] [address] Performed By: #### 1 9123-9, 2777, 97013-3 ####[facility] LABCLIA [id number] [place] [address] [place] Urea nitrogen [Mass/Vol] 12 mg/dL Normal 7-21 [facility] Comment on above: Order Comment: Speci men Type: BLOOD SPECIMENOrdering Facility: [facility] Address: [address] [place] [address] Performed By: #### 1 9123-9, 27702-06, ####[facility] LABCLIA [id number] [place] [address] [place] ECG COMPLETEon 04-14-2023 ECG COMPLETE Normal [facility] HIGH SENSITIVITY TROPONIN To n 04-14-2023 Troponin T.cardiac High sensitivity method [Mass/Vol] 13 ng/L High <12 [facility] Comment on above: Order Comment: Speci men Type: BLOOD SPECIMENOrdering Facility: [facility] Address: [address] [place] [address] Result Comment: When assessing risk for acute coronary syndromes: In patients undergoing blood draw greater than or equal to 2 hours from symptom onset, with history of very low to moderate risk and non-ischemic ECG, an initial hs-Troponin T less than 12 ng/L AND a 1 hour delta hs-Troponin T less than 3 ng/L should be considered very low risk for 30 day MACE. Performed By: #### H STNT ####[facility] LABCLIA [id number] [place] [address] [place] Magnesium SerPl-mCncon 04-14 Magnesium [Mass/Vol] 1.9 mg/dL Normal 1.7-2.3 [facility] Comment on above: Order Comment: Speci men Type: BLOOD SPECIMENOrdering Facility: [facility] Address: [address] [place] [address] Performed By: #### 1 9123-9, 277-, 58399-6 ####[facility] LABCLIA [id number] [place] [address] [place] NURSING PROGon 04-14-2023 NURSING PROG Normal [facility] NUTRITIONon 04-14-2023 NUTRITION Normal [facility] Phosphate SerPl-mCncon 04-14 Phosphate [Mass/Vol] 3.9 mg/dL Normal 2.7-4.8 [facility] Comment on above: Order Comment: Speci men Type: BLOOD SPECIMENOrdering Facility: [facility] Address: [address] [place] [address] Performed By: #### 1 9123-9, 2777-1, 31345-2 ####[facility] [id number] [address] [place] CASE MANAGEMon 04-13-2023 CASE MANAGEM Normal [facility] CASE MANAGEM Normal [facility] CBC panel Auto (Bld)on 04-13 Erythrocyte distribution width (RBC) [Ratio] 13.2 % Normal 11.5-15.0 [facility] Comment on above: Order Comment: Speci men Type: BLOOD SPECIMENOrdering Facility: [facility] Address: [address] [place] [address] Performed By: #### 5 8410-2 ####[facility] [id number] [place] [address] [place] Hematocrit (Bld) [Volume fraction] 35.6 % Low 36.0-46.0 [facility] Comment on above: Order Comment: Speci men Type: BLOOD SPECIMENOrdering Facility: [facility] Address: [address] [place] [address] Performed By: #### 5 8410-2 ####[facility] LABIA [id number] [place] [address] [place] Hemoglobin (Bld) [Mass/Vol] 11.2 g/dL Low 11.5-15.5 [facility] Comment on above: Order Comment: Speci men Type: BLOOD SPECIMENOrdering Facility: [facility] Address: [address] [address] Performed By: #### 5 8410-2 ####[facility] LABIA [id number] [address] STATES OF [facility] MCH (RBC) [Entitic mass] 32.0 pg Normal 26.0-34.0 [facility] Comment on above: Order Comment: Speci men Type: BLOOD SPECIMENOrdering Facility: [facility] Address: [address] [address] Performed By: #### 5 8410-2 ####[facility] LABIA [id number] [address] [place] MCHC (RBC) [Mass/Vol] 31.5 g/dL Normal 30.5-36.0 [facility] Comment on above: Order Comment: Speci men Type: BLOOD SPECIMENOrdering Facility: [facility] Address: [address] Performed By: #### 5 8410-2 ####[facility] LABIA [id number] [address] [place] MCV (RBC) [Entitic vol] 101.7 fL High 80.0-100.0 [facility] Comment on above: Order Comment: Speci men Type: BLOOD SPECIMENOrdering Facility: [facility] Address: [address] Performed By: #### 5 8410-2 ####[facility] [id number] [place] [address] [place] Nucleated RBC (Bld) [#/Vol] 10*3/uL Normal <0.01 [facility] Comment on above: Order Comment: Speci men Type: BLOOD SPECIMENOrdering Facility: [facility] Address: [address] Performed By: #### 5 8410-2 ####[facility] LABIA [id number] [place] [address] [place] Platelet mean volume (Bld) [Entitic vol] 10.4 fL Normal 9.0-12.7 [facility] Comment on above: Order Comment: Speci men Type: BLOOD SPECIMENOrdering Facility: [facility] Address: [address] [place], [place] [address] Performed By: #### 5 8410-2 ####[facility] LABIA [id number] [place] [address] [place] Platelets (Bld) [#/Vol] 327 10*3/uL Normal 150-400 [facility] Comment on above: Order Comment: Speci men Type: BLOOD SPECIMENOrdering Facility: [facility] Address: [address] [place], [place] [address] Performed By: #### 5 8410-2 ####[facility] LABIA [id number] [place] [address] [place] RBC (Bld) [#/Vol] 3.50 10*6/uL Low 3.90-5.20 [facility] Comment on above: Order Comment: Speci men Type: BLOOD SPECIMENOrdering Facility: [facility] Address: [address] [place], [place] [address] Performed By: #### 5 8410-2 ####[facility] LABIA [id number] [place] [address] [place] WBC (Bld) [#/Vol] 6.06 10*3/uL Normal 3.70-11.00 [facility] Comment on above: Order Comment: Speci men Type: BLOOD SPECIMENOrdering Facility: [facility] Address: [address] [place], [place] [address] Performed By: #### 5 8410-2 ####[facility] LABIA [id number] [place] [address] [place] Comprehensive metabolic 2000 panelon 04-13-2023 Albumin [Mass/Vol] 3.5 g/dL Low 3.9-4.9 [facility] Comment on above: Order Comment: Speci men Type: BLOOD SPECIMENOrdering Facility: [facility] Address: [address] [place] [address] Performed By: #### 2 4323-8, 87202-4, 2776- ####[facility] LABCLIA [id number] [place] [address] [place] ALP [Catalytic activity/Vol] 63 U/L Normal 34-123 [facility] Comment on above: Order Comment: Speci men Type: BLOOD SPECIMENOrdering Facility: [facility] Address: [address] [place] [address] Performed By: #### 2 4323-8, , 2776- ####[facility] LABCLIA [id number] [address] [place] ALT [Catalytic activity/Vol] 14 U/L Normal 7-38 [facility] Comment on above: Order Comment: Speci men Type: BLOOD SPECIMENOrdering Facility: [facility] Address: [address] [place] [address] Performed By: #### 2 4323-8, , 2776- ####[facility] LABCLIA [id number] [place] [address] [place] Anion gap [Moles/Vol] 11 mmol/L Normal 9-18 [facility] Comment on above: Order Comment: Speci men Type: BLOOD SPECIMENOrdering Facility: [facility] Address: [address] [place], [place] [address] Performed By: #### 2 4323-8, 88251-6, 2776- ####[facility] LABCLIA [id number] [place] [address] [place] AST [Catalytic activity/Vol] 23 U/L Normal 13-35 [facility] Comment on above: Order Comment: Speci men Type: BLOOD SPECIMENOrdering Facility: [facility] Address: [address] [place] [address] Performed By: #### 2 4323-8, 67878-3, 2776-08 ####[facility] LABCLIA [id number] [place] [address] [place] Bilirubin [Mass/Vol] 0.6 mg/dL Normal 0.2-1.3 [facility] Comment on above: Order Comment: Speci men Type: BLOOD SPECIMENOrdering Facility: [facility] Address: [address] [place] [address] Performed By: #### 2 4323-8, , 2776-08 ####[facility] LABCLIA [id number] [place] [address] [place] Calcium [Mass/Vol] 8.9 mg/dL Normal 8.5-10.2 [facility] Comment on above: Order Comment: Speci men Type: BLOOD SPECIMENOrdering Facility: [facility] Address: [address] [place], [place] [address] Performed By: #### 2 4323-8, , 2776-08 ####[facility] LABCLIA [id number] [place] [address] [place] Chloride [Moles/Vol] 103 mmol/L Normal 97-105 [facility] Comment on above: Order Comment: Speci men Type: BLOOD SPECIMENOrdering Facility: [facility] Address: [address] [place], [place] [address] Performed By: #### 2 4323-8, 96911-3, 2776-08 ####[facility] LABCLIA [id number] [place] [address] [place] CO2 [Moles/Vol] 26 mmol/L Normal 22-30 [facility] Comment on above: Order Comment: Speci men Type: BLOOD SPECIMENOrdering Facility: [facility] Address: [address] [place] [address] Performed By: #### 2 4323-8, , 2776-08 ####[facility] LABCLIA [id number] [place] [address] [place] Creatinine [Mass/Vol] 0.64 mg/dL Normal 0.58-0.96 [facility] Comment on above: Order Comment: Speci men Type: BLOOD SPECIMENOrdering Facility: [facility] Address: [address] [place] [address] Performed By: #### 2 4323-8, , 2776-08 ####[facility] LABCLIA [id number] [place] [address] [place] Creatinine and Glomerular filtration rate.predicted panel (S/P/Bld) 87 mL/min/1.73m??? Normal >=60 [facility] Comment on above: Order Comment: Zay sandoval Type: BLOOD SPECIMENOrdering Facility: [facility] Address: [address] [place] [address] Result Comment: Marlyn mated Glomerular Filtration Rate (eGFR) is calculated using the 2020 CKD-EPI creatinine equation. This equation utilizes serum creatinine, sex, and age as parameters. The creatinine assay has traceable calibration to isotope dilution-mass spectrometry. Refer to KDIGO guidelines for clinical interpretation. In patients with unstable renal function, e.g. those with acute kidney injury, the eGFR may not accurately reflect actual GFR. Performed By: #### 2 4323-8, , 2776-08 ####[facility] LABCLIA [id number] [place] [address] [place] Glucose [Mass/Vol] 93 mg/dL Normal 74-99 [facility] Comment on above: Order Comment: Pratibhai men Type: BLOOD SPECIMENOrdering Facility: [facility] Address: [address] [id number] Result Comment: The [place] [employer] (ADA) provides guidance for cutoff values for fasting glucose and random glucose. The ADA defines fasting as no caloric intake for at least 8 hours. Fasting plasma glucose results between 100 to 125 mg/dL indicate increased risk for diabetes (prediabetes).Fasting plasma glucose results greater than or equal to 126 mg/dL meet the criteria for diagnosis of diabetes. In the absence of unequivocal hyperglycemia, results should be confirmed by repeat testing. In a patient with classic symptoms of hyperglycemia or hyperglycemic crisis, random plasma glucose results greater than or equal to 200 mg/dL meet the criteria for diagnosis of diabetes.Reference: Standards of Medical Care in Diabetes 2016, [place] [employer]. Diabetes Care. 2016.39(Suppl 1). Performed By: #### 2 4323-8, , 2776-08 ####[facility] LABCLIA [id number] [place] [address] [place] Potassium [Moles/Vol] 4.1 mmol/L Normal 3.7-5.1 [facility] Comment on above: Order Comment: Speci men Type: BLOOD SPECIMENOrdering Facility: [facility] Address: [address] [id number] Performed By: #### 2 4323-8, , 2776-08 ####[facility] LABCLIA [id number] [place] [address] [place] Protein [Mass/Vol] 6.4 g/dL Normal 6.3-8.0 [facility] Comment on above: Order Comment: Speci men Type: BLOOD SPECIMENOrdering Facility: [facility] Address: [address] [id number] Performed By: #### 2 4323-8, , 2776-08 ####[facility] LABCLIA [id number] [place] [address] [address] [place] Sodium [Moles/Vol] 140 mmol/L Normal 136-144 [facility] Comment on above: Order Comment: Speci men Type: BLOOD SPECIMENOrdering Facility: [facility] Address: [address] [place] [address] Performed By: #### 2 4323-8, , 2776-08 ####[facility] LABCLIA [id number] [place] [address] [place] Urea nitrogen [Mass/Vol] 10 mg/dL Normal 7-21 [facility] Comment on above: Order Comment: Speci men Type: BLOOD SPECIMENOrdering Facility: [facility] Address: [address] [place], [place] [address] Performed By: #### 2 4323-8, , 2776-08 ####[facility] LABCLIA [id number] [place] [address] [place] Magnesium SerPl-ncon 04-13 Magnesium [Mass/Vol] 2.0 mg/dL Normal 1.7-2.3 [facility] Comment on above: Order Comment: Speci men Type: BLOOD SPECIMENOrdering Facility: [facility] Address: [address] [place] [address] Performed By: #### 2 4323-8, , 2776-08 ####[facility] LABCLIA [id number] [place] [address] [place] Phosphate SerPl-mCncon 04-13 Phosphate [Mass/Vol] 3.5 mg/dL Normal 2.7-4.8 [facility] Comment on above: Order Comment: Speci men Type: BLOOD SPECIMENOrdering Facility: [facility] Address: [address] [place], [place] [address] Performed By: #### 2 4323-8, , 2776-08 ####[facility] LABCLIA [id number] [place] [address] [place] THERAPY NTon 04-13-2023 THERAPY NT Normal [facility] CBC panel Auto (Bld)on 04-12 Erythrocyte distribution width (RBC) [Ratio] 13.2 % Normal 11.5-15.0 [facility] Comment on above: Order Comment: Speci men Type: BLOOD SPECIMENOrdering Facility: [facility] Address: [address] [place] [address] Performed By: #### 5 8410-2 ####[facility] LABIA [id number] [address] OF [facility] Hematocrit (Bld) [Volume fraction] 33.4 % Low 36.0-46.0 [facility] Comment on above: Order Comment: Speci men Type: BLOOD SPECIMENOrdering Facility: [facility] Address: [address] [place] [address] Performed By: #### 5 8410-2 ####[facility] [id number] [address] [facility] Hemoglobin (Bld) [Mass/Vol] 10.8 g/dL Low 11.5-15.5 [facility] Comment on above: Order Comment: Speci men Type: BLOOD SPECIMENOrdering Facility: [facility] Address: [address] [place] [address] Performed By: #### 5 8410-2 ####[facility]IA [id number] [place] [address] [place] MCH (RBC) [Entitic mass] 32.8 pg Normal 26.0-34.0 [facility] Comment on above: Order Comment: Speci men Type: BLOOD SPECIMENOrdering Facility: [facility] Address: [address] [place] [address] Performed By: #### 5 8410-2 ####[facility]IA [id number] [address] [place] MCHC (RBC) [Mass/Vol] 32.3 g/dL Normal 30.5-36.0 [facility] Comment on above: Order Comment: Speci men Type: BLOOD SPECIMENOrdering Facility: [facility] Address: [address] Performed By: #### 5 8410-2 ####[facility]IA [id number] [place] [address] [place] MCV (RBC) [Entitic vol] 101.5 fL High 80.0-100.0 [facility] Comment on above: Order Comment: Speci men Type: BLOOD SPECIMENOrdering Facility: [facility] Address: [address] Performed By: #### 5 8410-2 ####[facility] [id number] [address] [place] Nucleated RBC (Bld) [#/Vol] 10*3/uL Normal <0.01 [facility] Comment on above: Order Comment: Speci men Type: BLOOD SPECIMENOrdering Facility: [facility] Address: [address] [place], [place] [address] Performed By: #### 5 8410-2 ####[facility] [id number] [place] [address] [place] Platelet mean volume (Bld) [Entitic vol] 10.5 fL Normal 9.0-12.7 [facility] Comment on above: Order Comment: Speci men Type: BLOOD SPECIMENOrdering Facility: [facility] Address: [address] Performed By: #### 5 8410-2 ####[facility]IA [id number] [place] [address] [place] Platelets (Bld) [#/Vol] 305 10*3/uL Normal 150-400 [facility] Comment on above: Order Comment: Speci men Type: BLOOD SPECIMENOrdering Facility: [facility] Address: [address] [place], [place] [address] Performed By: #### 5 8410-2 ####[facility] LABCLIA [id number] [place] [address] [place] RBC (Bld) [#/Vol] 3.29 10*6/uL Low 3.90-5.20 [facility] Comment on above: Order Comment: Speci men Type: BLOOD SPECIMENOrdering Facility: [facility] Address: [address] Performed By: #### 5 8410-2 ####[facility]IA [id number] [address] [place] WBC (Bld) [#/Vol] 6.23 10*3/uL Normal 3.70-11.00 [facility] Comment on above: Order Comment: Speci men Type: BLOOD SPECIMENOrdering Facility: [facility] Address: [address] Performed By: #### 5 8410-2 ####[facility] [id number] [place] [address] [place] Comprehensive metabolic 2000 panelon 04-12-2023 Albumin [Mass/Vol] 3.3 g/dL Low 3.9-4.9 [facility] Comment on above: Order Comment: Speci men Type: BLOOD SPECIMENOrdering Facility: [facility] Address: [address] Performed By: #### 1 9123-9, 2777-1, 36795-1 ####[facility]IA [id number] [place] [address] [place] ALP [Catalytic activity/Vol] 58 U/L Normal 34-123 [facility] Comment on above: Order Comment: Speci men Type: BLOOD SPECIMENOrdering Facility: [facility] Address: [address] Performed By: #### 1 9123-9, 2776-08, 62492-1 ####[facility]CL[facility] [id number] [place] [address] [place] ALT [Catalytic activity/Vol] 9 U/L Normal 7-38 [facility] Comment on above: Order Comment: Speci men Type: BLOOD SPECIMENOrdering Facility: [facility] Address: [address] [place] [address] Performed By: #### 1 9123-9, 27702-06, ####[facility]CL[facility] [id number] [place] [address] [place] Anion gap [Moles/Vol] 12 mmol/L Normal 9-18 [facility] Comment on above: Order Comment: Speci men Type: BLOOD SPECIMENOrdering Facility: [facility] Address: [address] [place] [address] Performed By: #### 1 9123-9, 2776-08, ####[facility]CL[facility] [id number] [place] [address] [place] AST [Catalytic activity/Vol] 17 U/L Normal 13-35 [facility] Comment on above: Order Comment: Speci men Type: BLOOD SPECIMENOrdering Facility: [facility] Address: [address] [place] [address] Performed By: #### 1 9123-9, 2776-08, 83289-7 ####[facility]CL[facility] [id number] [place] [address] [place] Bilirubin [Mass/Vol] 0.6 mg/dL Normal 0.2-1.3 [facility] Comment on above: Order Comment: Speci men Type: BLOOD SPECIMENOrdering Facility: [facility] Address: [address] [place] [address] Performed By: #### 1 9123-9, 27702-06, 84524-7 ####[facility]CL[facility] [id number] [place] [address] [place] Calcium [Mass/Vol] 8.7 mg/dL Normal 8.5-10.2 [facility] Comment on above: Order Comment: Speci men Type: BLOOD SPECIMENOrdering Facility: [facility] Address: [address] [place] [address] Performed By: #### 1 9123-9, 2777, 77586-0 ####[facility] [id number] [place] [address] [place] Chloride [Moles/Vol] 101 mmol/L Normal 97-105 [facility] Comment on above: Order Comment: Speci men Type: BLOOD SPECIMENOrdering Facility: [facility] Address: [address] [place] [address] Performed By: #### 1 9123-9, 27702-06, 07336-0 ####[facility]CL[facility] [id number] [place] [address] [place] CO2 [Moles/Vol] 26 mmol/L Normal 22-30 [facility] Comment on above: Order Comment: Speci men Type: BLOOD SPECIMENOrdering Facility: [facility] Address: [address] [place] [address] Performed By: #### 1 9123-9, 27702-06, 80070-4 ####[facility] [id number] [place] [address] [place] Creatinine [Mass/Vol] 0.47 mg/dL Low 0.58-0.96 [facility] Comment on above: Order Comment: Speci men Type: BLOOD SPECIMENOrdering Facility: [facility] Address: [address] [place] [address] Performed By: #### 1 9123-9, 2777-, 67937-2 ####[facility]CL[facility] [id number] [address] Creatinine and Glomerular filtration rate.predicted panel (S/P/Bld) 94 mL/min/1.73m??? Normal >=60 [facility] Comment on above: Order Comment: Zay sandoval Type: BLOOD SPECIMENOrdering Facility: [facility] Address: [address] [place] [address] Result Comment: Marlyn mated Glomerular Filtration Rate (eGFR) is calculated using the 2020 CKD-EPI creatinine equation. This equation utilizes serum creatinine, sex, and age as parameters. The creatinine assay has traceable calibration to isotope dilution-mass spectrometry. Refer to KDIGO guidelines for clinical interpretation. In patients with unstable renal function, e.g. those with acute kidney injury, the eGFR may not accurately reflect actual GFR. Performed By: #### 1 9123-9, 2777-1, 69173-1 ####[facility]CLIA [id number] [address] [place] [facility] Glucose [Mass/Vol] 89 mg/dL Normal 74-99 [facility] Comment on above: Order Comment: Zay sandoval Type: BLOOD SPECIMENOrdering Facility: [facility] Address: [address] [place] [address] Result Comment: The [place] Diabetes [employer] (ADA) provides guidance for cutoff values for fasting glucose and random glucose. The ADA defines fasting as no caloric intake for at least 8 hours. Fasting plasma glucose results between 100 to 125 mg/dL indicate increased risk for diabetes (prediabetes).Fasting plasma glucose results greater than or equal to 126 mg/dL meet the criteria for diagnosis of diabetes. In the absence of unequivocal hyperglycemia, results should be confirmed by repeat testing. In a patient with classic symptoms of hyperglycemia or hyperglycemic crisis, random plasma glucose results greater than or equal to 200 mg/dL meet the criteria for diagnosis of diabetes.Reference: Standards of Medical Care in Diabetes 2016, [place] [employer]. Diabetes Care. 2016.39(Suppl 1). Performed By: #### 1 9123-9, 2777-1, 17836-1 ####[facility] LABCLIA [id number] [place] [address] [place] Potassium [Moles/Vol] 3.4 mmol/L Low 3.7-5.1 [facility] Comment on above: Order Comment: Speci men Type: BLOOD SPECIMENOrdering Facility: [facility] Address: [address] [place] [address] Performed By: #### 1 9123-9, 277-1, 29520-1 ####[facility] LABCLIA [id number] [place] [address] [place] Protein [Mass/Vol] 6.1 g/dL Low 6.3-8.0 [facility] Comment on above: Order Comment: Speci men Type: BLOOD SPECIMENOrdering Facility: [facility] Address: [address] [place] [address] Performed By: #### 1 9123-9, 2776-08, 71158-7 ####[facility] LABCLIA [id number] [place] [address] [place] Sodium [Moles/Vol] 139 mmol/L Normal 136-144 [facility] Comment on above: Order Comment: Speci men Type: BLOOD SPECIMENOrdering Facility: [facility] Address: [address] [place], [place] [address] Performed By: #### 1 9123-9, 27702-06, 26907-6 ####[facility] LABCLIA [id number] [place] [address] [place] Urea nitrogen [Mass/Vol] 7 mg/dL Normal 7-21 [facility] Comment on above: Order Comment: Speci men Type: BLOOD SPECIMENOrdering Facility: [facility] Address: [address] [place], [place] [address] Performed By: #### 1 9123-9, 27702-06, 30149-7 ####[facility] LABCLIA [id number] [place] [address] [place] Magnesium SerPl-mCncon 04-12 Magnesium [Mass/Vol] 2.0 mg/dL Normal 1.7-2.3 [facility] Comment on above: Order Comment: Speci men Type: BLOOD SPECIMENOrdering Facility: [facility] Address: [address] [place] [address] Performed By: #### 1 9123-9, 2777-1, 00875-1 ####[facility] LABCLIA [id number] [place] [address] [place] Phosphate SerPl-mCncon 04-12 Phosphate [Mass/Vol] 3.2 mg/dL Normal 2.7-4.8 [facility] Comment on above: Order Comment: Speci men Type: BLOOD SPECIMENOrdering Facility: [facility] Address: [address] [place] [address] Performed By: #### 1 9123-9, 2777-1, 12058-6 ####[facility] LABIA [id number] [place] [address] [place] THERAPY NTon 04-12-2023 THERAPY NT Normal [facility] CASE MANAGEMon 04-11-2023 CASE MANAGEM Normal [facility] CBC panel Auto (Bld)on 04-11 Erythrocyte distribution width (RBC) [Ratio] 13.2 % Normal 11.5-15.0 [facility] Comment on above: Order Comment: Speci men Type: BLOOD SPECIMENOrdering Facility: [facility] Address: [address] [place] [address] Performed By: #### 5 8410-2 ####[facility] LABIA [id number] [place] [address] [place] Hematocrit (Bld) [Volume fraction] 34.2 % Low 36.0-46.0 [facility] Comment on above: Order Comment: Speci men Type: BLOOD SPECIMENOrdering Facility: [facility] Address: [address] [place] [address] Performed By: #### 5 8410-2 ####[facility] LABIA [id number] [address] [place] Hemoglobin (Bld) [Mass/Vol] 10.7 g/dL Low 11.5-15.5 [facility] Comment on above: Order Comment: Speci men Type: BLOOD SPECIMENOrdering Facility: [facility] Address: [address] [place], [place] [address] Performed By: #### 5 8410-2 ####[facility] [id number] [place] [address] [place] MCH (RBC) [Entitic mass] 32.1 pg Normal 26.0-34.0 [facility] Comment on above: Order Comment: Speci men Type: BLOOD SPECIMENOrdering Facility: [facility] Address: [address] [place], [place] [address] Performed By: #### 5 8410-2 ####[facility] [id number] [address] [place] MCHC (RBC) [Mass/Vol] 31.3 g/dL Normal 30.5-36.0 [facility] Comment on above: Order Comment: Speci men Type: BLOOD SPECIMENOrdering Facility: [facility] Address: [address] [place], [place] [address] Performed By: #### 5 8410-2 ####[facility] [id number] [address] [place] MCV (RBC) [Entitic vol] 102.7 fL High 80.0-100.0 [facility] Comment on above: Order Comment: Speci men Type: BLOOD SPECIMENOrdering Facility: [facility] Address: [address] [place], [place] [address] Performed By: #### 5 8410-2 ####[facility] [id number] [id number] [address] [place] Nucleated RBC (Bld) [#/Vol] 10*3/uL Normal <0.01 [facility] Comment on above: Order Comment: Speci men Type: BLOOD SPECIMENOrdering Facility: [facility] Address: [address] [place], [place] [address] Performed By: #### 5 8410-2 ####[facility] LABIA [id number] [place] [address] [place] Platelet mean volume (Bld) [Entitic vol] 10.5 fL Normal 9.0-12.7 [facility] Comment on above: Order Comment: Speci men Type: BLOOD SPECIMENOrdering Facility: [facility] Address: [address] [place], [place] [address] Performed By: #### 5 8410-2 ####[facility] LABCLIA [id number] [place] [address] [place] Platelets (Bld) [#/Vol] 267 10*3/uL Normal 150-400 [facility] Comment on above: Order Comment: Speci men Type: BLOOD SPECIMENOrdering Facility: [facility] Address: [address] [place], [place] [address] Performed By: #### 5 8410-2 ####[facility] LABIA [id number] [place] [address] [place] RBC (Bld) [#/Vol] 3.33 10*6/uL Low 3.90-5.20 [facility] Comment on above: Order Comment: Speci men Type: BLOOD SPECIMENOrdering Facility: [facility] Address: [address] [place], [place] [address] Performed By: #### 5 8410-2 ####[facility] LABCLIA [id number] [place] [address] [place] WBC (Bld) [#/Vol] 5.53 10*3/uL Normal 3.70-11.00 [facility] Comment on above: Order Comment: Speci men Type: BLOOD SPECIMENOrdering Facility: [facility] Address: [address] [place] [address] Performed By: #### 5 8410-2 ####[facility] LABCLIA [id number] [place] [address] [place] Comprehensive metabolic 2000 panelon 04-11-2023 Albumin [Mass/Vol] 3.3 g/dL Low 3.9-4.9 [facility] Comment on above: Order Comment: Speci men Type: BLOOD SPECIMENOrdering Facility: [facility] Address: [address] [place] [place] [address] Performed By: #### 1 9123-9, 04110-5, 2777-1 ####[facility] LABIA [id number] [place] [address] [place] ALP [Catalytic activity/Vol] 59 U/L Normal 34-123 [facility] Comment on above: Order Comment: Speci men Type: BLOOD SPECIMENOrdering Facility: [facility] Address: [address] [place] [address] Performed By: #### 1 9123-9, 84360-6, 2777-1 ####[facility] LABIA [id number] [place] [address] [place] ALT [Catalytic activity/Vol] 9 U/L Normal 7-38 [facility] Comment on above: Order Comment: Speci men Type: BLOOD SPECIMENOrdering Facility: [facility] Address: [address] [place] [address] Performed By: #### 1 9123-9, 82063-9, 2777-1 ####[facility] LABIA [id number] [place] [address] [place] Anion gap [Moles/Vol] 12 mmol/L Normal 9-18 [facility] Comment on above: Order Comment: Speci men Type: BLOOD SPECIMENOrdering Facility: [facility] Address: [address] [place] [address] Performed By: #### 1 9123-9, 72094-1, 277- ####[facility] LABCLIA [id number] [place] [address] [place] AST [Catalytic activity/Vol] 15 U/L Normal 13-35 [facility] Comment on above: Order Comment: Speci men Type: BLOOD SPECIMENOrdering Facility: [facility] Address: [address] Performed By: #### 1 9123-9, 26180-4, 277- ####[facility] LABCLIA [id number] [place] [address] [place] Bilirubin [Mass/Vol] 0.6 mg/dL Normal 0.2-1.3 [facility] Comment on above: Order Comment: Speci men Type: BLOOD SPECIMENOrdering Facility: [facility] Address: [address] [place], [place] [address] Performed By: #### 1 9123-9, 30302-4, 2776-08 ####[facility] LABCLIA [id number] [place] [address] [place] Calcium [Mass/Vol] 8.8 mg/dL Normal 8.5-10.2 [facility] Comment on above: Order Comment: Speci men Type: BLOOD SPECIMENOrdering Facility: [facility] Address: [address] [place] [address] Performed By: #### 1 9123-9, 11000-2, 277- ####[facility] LABCLIA [id number] [place] [address] [place] Chloride [Moles/Vol] 103 mmol/L Normal 97-105 [facility] Comment on above: Order Comment: Speci men Type: BLOOD SPECIMENOrdering Facility: [facility] Address: [address] [place] [address] Performed By: #### 1 9123-9, 06468-7, 27702-06 ####[facility] LABIA [id number] [place] [address] [place] CO2 [Moles/Vol] 25 mmol/L Normal 22-30 [facility] Comment on above: Order Comment: Speci men Type: BLOOD SPECIMENOrdering Facility: [facility] Address: [address] [place] [address] Performed By: #### 1 9123-9, 42949-2, 2776-08 ####[facility] LABIA [id number] [place] [address] [place] Creatinine [Mass/Vol] 0.46 mg/dL Low 0.58-0.96 [facility] Comment on above: Order Comment: Speci men Type: BLOOD SPECIMENOrdering Facility: [facility] Address: [address] [place] [address] Performed By: #### 1 9123-9, , 2776-08 ####[facility] LABIA [id number] [address] [place] Creatinine and Glomerular filtration rate.predicted panel (S/P/Bld) 94 mL/min/1.73m??? Normal >=60 [facility] Comment on above: Order Comment: Speci men Type: BLOOD SPECIMENOrdering Facility: [facility] Address: [address] [place] [address] Result Comment: Marlyn mated Glomerular Filtration Rate (eGFR) is calculated using the 2020 CKD-EPI creatinine equation. This equation utilizes serum creatinine, sex, and age as parameters. The creatinine assay has traceable calibration to isotope dilution-mass spectrometry. Refer to KDIGO guidelines for clinical interpretation. In patients with unstable renal function, e.g. those with acute kidney injury, the eGFR may not accurately reflect actual GFR. Performed By: #### 1 9123-9, 13636-5, 2777-1 ####[facility] LABIA [id number] [place] [address] [place] Glucose [Mass/Vol] 102 mg/dL High 74-99 [facility] Comment on above: Order Comment: Speci men Type: BLOOD SPECIMENOrdering Facility: [facility] Address: [address] [place] [address] Result Comment: The [place] [employer] (ADA) provides guidance for cutoff values for fasting glucose and random glucose. The ADA defines fasting as no caloric intake for at least 8 hours. Fasting plasma glucose results between 100 to 125 mg/dL indicate increased risk for diabetes (prediabetes).Fasting plasma glucose results greater than or equal to 126 mg/dL meet the criteria for diagnosis of diabetes. In the absence of unequivocal hyperglycemia, results should be confirmed by repeat testing. In a patient with classic symptoms of hyperglycemia or hyperglycemic crisis, random plasma glucose results greater than or equal to 200 mg/dL meet the criteria for diagnosis of diabetes.Reference: Standards of Medical Care in Diabetes 2016, [place] [employer]. Diabetes Care. 2016.39(Suppl 1). Performed By: #### 1 9123-9, 44671-0, 2777-1 ####[facility] LABIA [id number] [place] [address] [place] Potassium [Moles/Vol] 3.7 mmol/L Normal 3.7-5.1 [facility] Comment on above: Order Comment: Speci men Type: BLOOD SPECIMENOrdering Facility: [facility] Address: [address] [place], [place] [address] Performed By: #### 1 9123-9, 18604-0, 2777-1 ####[facility] LABIA [id number] [place] [address] [place] Protein [Mass/Vol] 5.9 g/dL Low 6.3-8.0 [facility] Comment on above: Order Comment: Speci men Type: BLOOD SPECIMENOrdering Facility: [facility] Address: [address] [place] [address] Performed By: #### 1 9123-9, 28227-1, 2777-1 ####[facility] LABCLIA [id number] [place] [address] [place] Sodium [Moles/Vol] 140 mmol/L Normal 136-144 [facility] Comment on above: Order Comment: Speci men Type: BLOOD SPECIMENOrdering Facility: [facility] Address: [address] [place] [address] Performed By: #### 1 9123-9, 77520-9, 2777- ####[facility] LABIA [id number] [place] [address] [place] Urea nitrogen [Mass/Vol] 5 mg/dL Low 7-21 [facility] Comment on above: Order Comment: Speci men Type: BLOOD SPECIMENOrdering Facility: [facility] Address: [address] [place] [address] Performed By: #### 1 9123-9, 43889-8, 2777- ####[facility] LABIA [id number] [place] [address] [place] Magnesium SerPl-mCncon 04-11 Magnesium [Mass/Vol] 1.9 mg/dL Normal 1.7-2.3 [facility] Comment on above: Order Comment: Speci men Type: BLOOD SPECIMENOrdering Facility: [facility] Address: [address] [place] [address] Performed By: #### 1 9123-9, 75559-2, 2777 ####[facility] LABIA [id number] [place] [address] [place] Phosphate SerPl-mCncon 04-11 Phosphate [Mass/Vol] 3.3 mg/dL Normal 2.7-4.8 [facility] Comment on above: Order Comment: Speci men Type: BLOOD SPECIMENOrdering Facility: [facility] Address: [address] [place] [address] Performed By: #### 1 9123-9, 01720-7, 2777-1 ####[facility] LABIA [id number] [address] [place] CBC panel Auto (Bld)on 04-10 Erythrocyte distribution width (RBC) [Ratio] 13.6 % Normal 11.5-15.0 [facility] Comment on above: Order Comment: Speci men Type: BLOOD SPECIMENOrdering Facility: [facility] Address: [address] [place] [address] Performed By: #### 5 8410-2 ####[facility] [id number] [address] [place] Hematocrit (Bld) [Volume fraction] 31.1 % Low 36.0-46.0 [facility] Comment on above: Order Comment: Speci men Type: BLOOD SPECIMENOrdering Facility: [facility] Address: [address] Performed By: #### 5 8410-2 ####[facility] [id number] [address] [place] Hemoglobin (Bld) [Mass/Vol] 9.8 g/dL Low 11.5-15.5 [facility] Comment on above: Order Comment: Speci men Type: BLOOD SPECIMENOrdering Facility: [facility] Address: [address] Performed By: #### 5 8410-2 ####[facility] LABIA [id number] [address] [place] MCH (RBC) [Entitic mass] 32.5 pg Normal 26.0-34.0 [facility] Comment on above: Order Comment: Speci men Type: BLOOD SPECIMENOrdering Facility: [facility] Address: [address] Performed By: #### 5 8410-2 ####[facility] LABIA [id number] [place] [address] [place] MCHC (RBC) [Mass/Vol] 31.5 g/dL Normal 30.5-36.0 [facility] Comment on above: Order Comment: Speci men Type: BLOOD SPECIMENOrdering Facility: [facility] Address: [address] [place], [place] [address] Performed By: #### 5 8410-2 ####[facility] [id number] [place] [address] [place] MCV (RBC) [Entitic vol] 103.0 fL High 80.0-100.0 [facility] Comment on above: Order Comment: Speci men Type: BLOOD SPECIMENOrdering Facility: [facility] Address: [address] [place] [address] Performed By: #### 5 8410-2 ####[facility] [id number] [place] [address] [place] Nucleated RBC (Bld) [#/Vol] 10*3/uL Normal <0.01 [facility] Comment on above: Order Comment: Speci men Type: BLOOD SPECIMENOrdering Facility: [facility] Address: [address] [place], [place] [address] Performed By: #### 5 8410-2 ####[facility] [id number] [place] [address] [place] Platelet mean volume (Bld) [Entitic vol] 10.5 fL Normal 9.0-12.7 [facility] Comment on above: Order Comment: Speci men Type: BLOOD SPECIMENOrdering Facility: [facility] Address: [address] [place], [place] [address] Performed By: #### 5 8410-2 ####[facility] [id number] [place] [address] [place] Platelets (Bld) [#/Vol] 231 10*3/uL Normal 150-400 [facility] Comment on above: Order Comment: Speci men Type: BLOOD SPECIMENOrdering Facility: [facility] Address: [address] [place] [address] Performed By: #### 5 8410-2 ####[facility] LABCLIA [id number] [place] [address] [place] RBC (Bld) [#/Vol] 3.02 10*6/uL Low 3.90-5.20 [facility] Comment on above: Order Comment: Speci men Type: BLOOD SPECIMENOrdering Facility: [facility] Address: [address] [place] [address] Performed By: #### 5 8410-2 ####[facility] LABCLIA [id number] [place] [address] [place] WBC (Bld) [#/Vol] 6.95 10*3/uL Normal 3.70-11.00 [facility] Comment on above: Order Comment: Speci men Type: BLOOD SPECIMENOrdering Facility: [facility] Address: [address] [place] [address] Performed By: #### 5 8410-2 ####[facility] LABCLIA [id number] [place] [address] [place] [address] CHEST W IVCON PEon 2022 CT CHEST W IVCON PE Normal [facility] Comprehensive metabolic 2000 panelon 04-10-2023 Albumin [Mass/Vol] 3.2 g/dL Low 3.9-4.9 [facility] Comment on above: Order Comment: Speci men Type: BLOOD SPECIMENOrdering Facility: [facility] Address: [address] [place] [address] Performed By: #### 2 4323-8, 20681-4, 2777-1 ####[facility] LABCLIA [id number] [place] [address] [place] ALP [Catalytic activity/Vol] 51 U/L Normal 34-123 [facility] Comment on above: Order Comment: Speci men Type: BLOOD SPECIMENOrdering Facility: [facility] Address: [address] [place] [address] Performed By: #### 2 4323-8, 65262-0, 2776-08 ####[facility] LABCLIA [id number] [place] [address] [place] ALT [Catalytic activity/Vol] 9 U/L Normal 7-38 [facility] Comment on above: Order Comment: Speci men Type: BLOOD SPECIMENOrdering Facility: [facility] Address: [address] [place] [address] Performed By: #### 2 4323-8, , 2776-08 ####[facility] LABCLIA [id number] [place] [address] [place] Anion gap [Moles/Vol] 11 mmol/L Normal 9-18 [facility] Comment on above: Order Comment: Speci men Type: BLOOD SPECIMENOrdering Facility: [facility] Address: [address] [place] [address] Performed By: #### 2 4323-8, , 2776-08 ####[facility] LABCLIA [id number] [place] [address] [place] AST [Catalytic activity/Vol] 19 U/L Normal 13-35 [facility] Comment on above: Order Comment: Speci men Type: BLOOD SPECIMENOrdering Facility: [facility] Address: [address] [place] [address] Performed By: #### 2 4323-8, , 2776-08 ####[facility]CL[facility] [id number] [place] [address] [place] Bilirubin [Mass/Vol] 0.6 mg/dL Normal 0.2-1.3 [facility] Comment on above: Order Comment: Speci men Type: BLOOD SPECIMENOrdering Facility: [facility] Address: [address] [address] Performed By: #### 2 4323-8, , 2776-08 ####[facility]CL[facility] [id number] [place] [address] [place] Calcium [Mass/Vol] 8.9 mg/dL Normal 8.5-10.2 [facility] Comment on above: Order Comment: Speci men Type: BLOOD SPECIMENOrdering Facility: [facility] Address: [address] [place] [address] Performed By: #### 2 432-8, , 2776-08 ####[facility]CL[facility] [id number] [place] [address] [place] Chloride [Moles/Vol] 102 mmol/L Normal 97-105 [facility] Comment on above: Order Comment: Speci men Type: BLOOD SPECIMENOrdering Facility: [facility] Address: [address] [place], [place] [address] Performed By: #### 2 432-8, , 2776-08 ####[facility]CL[facility] [id number] [place] [address] [place] CO2 [Moles/Vol] 26 mmol/L Normal 22-30 [facility] Comment on above: Order Comment: Speci men Type: BLOOD SPECIMENOrdering Facility: [facility] Address: [address] Performed By: #### 2 4323-8, , 2776-08 ####[facility]CL[facility] [id number] [address] [address] [place] Creatinine [Mass/Vol] 0.54 mg/dL Low 0.58-0.96 [facility] Comment on above: Order Comment: Zay sandoval Type: BLOOD SPECIMENOrdering Facility: [facility] Address: [address] [id number] Performed By: #### 2 4323-8, 98365-4, 2776-08 ####[facility] [id number] [place] [address] [place] [facility] [place] Creatinine and Glomerular filtration rate.predicted panel (S/P/Bld) 91 mL/min/1.73m??? Normal >=60 [facility] Comment on above: Order Comment: Zay sandoval Type: BLOOD SPECIMENOrdering Facility: [facility] Address: [address] Result Comment: Marlyn mated Glomerular Filtration Rate (eGFR) is calculated using the 2020 CKD-EPI creatinine equation. This equation utilizes serum creatinine, sex, and age as parameters. The creatinine assay has traceable calibration to isotope dilution-mass spectrometry. Refer to KDIGO guidelines for clinical interpretation. In patients with unstable renal function, e.g. those with acute kidney injury, the eGFR may not accurately reflect actual GFR. Performed By: #### 2 4323-8, , 2776-08 ####[facility]CL[facility] [id number] [place] [address] [place] Glucose [Mass/Vol] 107 mg/dL High 74-99 [facility] Comment on above: Order Comment: Zay sandoval Type: BLOOD SPECIMENOrdering Facility: [facility] Address: [address] [id number] Result Comment: The [place] [employer] (ADA) provides guidance for cutoff values for fasting glucose and random glucose. The ADA defines fasting as no caloric intake for at least 8 hours. Fasting plasma glucose results between 100 to 125 mg/dL indicate increased risk for diabetes (prediabetes).Fasting plasma glucose results greater than or equal to 126 mg/dL meet the criteria for diagnosis of diabetes. In the absence of unequivocal hyperglycemia, results should be confirmed by repeat testing. In a patient with classic symptoms of hyperglycemia or hyperglycemic crisis, random plasma glucose results greater than or equal to 200 mg/dL meet the criteria for diagnosis of diabetes.Reference: Standards of Medical Care in Diabetes 2016, [place] [employer]. Diabetes Care. 2016.39(Suppl 1). Performed By: #### 2 4323-8, , 2776-08 ####[facility] LABCLIA [id number] [address] [address] [place] Potassium [Moles/Vol] 3.7 mmol/L Normal 3.7-5.1 [facility] Comment on above: Order Comment: Speci men Type: BLOOD SPECIMENOrdering Facility: [facility] Address: [address] [address] Performed By: #### 2 4323-8, , 2776-08 ####[facility] LABCLIA [id number] [address] [address] [place] Protein [Mass/Vol] 6.1 g/dL Low 6.3-8.0 [facility] Comment on above: Order Comment: Speci men Type: BLOOD SPECIMENOrdering Facility: [facility] Address: [address] [address] Performed By: #### 2 4323-8, , 2776-08 ####[facility] LABIA [id number] [address] [address] [place] Sodium [Moles/Vol] 139 mmol/L Normal 136-144 [facility] Comment on above: Order Comment: Speci men Type: BLOOD SPECIMENOrdering Facility: [facility] Address: [address] [place] [address] Performed By: #### 2 4323-8, , 2776-08 ####[facility] LABCLIA [id number] [address] [address] [place] Urea nitrogen [Mass/Vol] 6 mg/dL Low 7-21 [facility] Comment on above: Order Comment: Speci men Type: BLOOD SPECIMENOrdering Facility: [facility] Address: [address] Performed By: #### 2 4323-8, , 2776-08 ####[facility] LABCLIA [id number] [place] [address] [place] [facility] Magnesium [Mass/Vol] 1.9 mg/dL Normal 1.7-2.3 [facility] Comment on above: Order Comment: Speci men Type: BLOOD SPECIMENOrdering Facility: [facility] Address: [address] [place] [address] Performed By: #### 2 4323-8, , 2776-08 ####[facility] LABCLIA [id number] [place] [address] [place] Phosphate SerPl-mCncon 04-10 Phosphate [Mass/Vol] 2.5 mg/dL Low 2.7-4.8 [facility] Comment on above: Order Comment: Speci men Type: BLOOD SPECIMENOrdering Facility: [facility] Address: [address] [place] [address] Performed By: #### 2 4323-8, , 2776-08 ####[facility] LABIA [id number] [place] [address] [place] ALLIED HEALTHon 04-09-2023 ALLIED HEALTH Normal [facility] CASE MANAGEMon 04-09-2023 CASE MANAGEM Normal [facility] CBC panel Auto (Bld)on 04-09 Erythrocyte distribution width (RBC) [Ratio] 13.7 % Normal 11.5-15.0 [facility] Comment on above: Order Comment: Speci men Type: BLOOD SPECIMENOrdering Facility: [facility] Address: [address] [place] [address] Performed By: #### 5 8410-2 ####[facility] LABCLIA [id number] [address] [place] Hematocrit (Bld) [Volume fraction] 33.0 % Low 36.0-46.0 [facility] Comment on above: Order Comment: Speci men Type: BLOOD SPECIMENOrdering Facility: [facility] Address: [address] [place] [address] Performed By: #### 5 8410-2 ####[facility] LABIA [id number] [address] [place] Hemoglobin (Bld) [Mass/Vol] 10.5 g/dL Low 11.5-15.5 [facility] Comment on above: Order Comment: Speci men Type: BLOOD SPECIMENOrdering Facility: [facility] Address: [address] [place] [address] Performed By: #### 5 8410-2 ####[facility] LABIA [id number] [address] STATES OF [facility] MCH (RBC) [Entitic mass] 32.4 pg Normal 26.0-34.0 [facility] Comment on above: Order Comment: Speci men Type: BLOOD SPECIMENOrdering Facility: [facility] Address: [address] [place] [address] Performed By: #### 5 8410-2 ####[facility] LABIA [id number] [address] [place] MCHC (RBC) [Mass/Vol] 31.8 g/dL Normal 30.5-36.0 [facility] Comment on above: Order Comment: Speci men Type: BLOOD SPECIMENOrdering Facility: [facility] Address: [address] [place] [address] Performed By: #### 5 8410-2 ####[facility] LABCLIA [id number] [place] [address] [place] MCV (RBC) [Entitic vol] 101.9 fL High 80.0-100.0 [facility] Comment on above: Order Comment: Speci men Type: BLOOD SPECIMENOrdering Facility: [facility] Address: [address] Performed By: #### 5 8410-2 ####[facility] LABIA [id number] [place] [address] [place] Nucleated RBC (Bld) [#/Vol] 10*3/uL Normal <0.01 [facility] Comment on above: Order Comment: Speci men Type: BLOOD SPECIMENOrdering Facility: [facility] Address: [address] Performed By: #### 5 8410-2 ####[facility] LABIA [id number] [place] [address] [place] Platelet mean volume (Bld) [Entitic vol] 10.3 fL Normal 9.0-12.7 [facility] Comment on above: Order Comment: Speci men Type: BLOOD SPECIMENOrdering Facility: [facility] Address: [address] [place], [place] [address] Performed By: #### 5 8410-2 ####[facility] LABIA [id number] [place] [address] [place] Platelets (Bld) [#/Vol] 221 10*3/uL Normal 150-400 [facility] Comment on above: Order Comment: Speci men Type: BLOOD SPECIMENOrdering Facility: [facility] Address: [address] Performed By: #### 5 8410-2 ####[facility] LABIA [id number] [place] [address] [place] RBC (Bld) [#/Vol] 3.24 10*6/uL Low 3.90-5.20 [facility] Comment on above: Order Comment: Speci men Type: BLOOD SPECIMENOrdering Facility: [facility] Address: [address] [place], [place] [address] Performed By: #### 5 8410-2 ####[facility] LABIA [id number] [place] [address] [place] WBC (Bld) [#/Vol] 6.76 10*3/uL Normal 3.70-11.00 [facility] Comment on above: Order Comment: Speci men Type: BLOOD SPECIMENOrdering Facility: [facility] Address: [address] Performed By: #### 5 8410-2 ####[facility] LABIA [id number] [place] [address] [place] CNPNon 04-09-2023 CNPN Normal [facility] Comprehensive metabolic 2000 panelon 04-09-2023 Albumin [Mass/Vol] 3.3 g/dL Low 3.9-4.9 [facility] Comment on above: Order Comment: Speci men Type: BLOOD SPECIMENOrdering Facility: [facility] Address: [address] [place] [address] Performed By: #### 2 4323-8, 27407-5, 2777-1 ####[facility] LABIA [id number] [place] [address] [place] ALP [Catalytic activity/Vol] 50 U/L Normal 34-123 [facility] Comment on above: Order Comment: Speci men Type: BLOOD SPECIMENOrdering Facility: [facility] Address: [address] Performed By: #### 2 4323-8, 58517-8, 2777-1 ####[facility] LABIA [id number] [place] [address] [place] ALT [Catalytic activity/Vol] 9 U/L Normal 7-38 [facility] Comment on above: Order Comment: Speci men Type: BLOOD SPECIMENOrdering Facility: [facility] Address: [address] [place] [address] Performed By: #### 2 4323-8, 33394-2, 2776- ####[facility] LABIA [id number] [place] [address] [place] Anion gap [Moles/Vol] 10 mmol/L Normal 9-18 [facility] Comment on above: Order Comment: Speci men Type: BLOOD SPECIMENOrdering Facility: [facility] Address: [address] Performed By: #### 2 4323-8, 57369-8, 2776-08 ####[facility] LABIA [id number] [place] [address] [place] AST [Catalytic activity/Vol] 17 U/L Normal 13-35 [facility] Comment on above: Order Comment: Speci men Type: BLOOD SPECIMENOrdering Facility: [facility] Address: [address] [address] Performed By: #### 2 4323-8, , 2776-08 ####[facility] LABIA [id number] [place] [address] [place] Bilirubin [Mass/Vol] 0.7 mg/dL Normal 0.2-1.3 [facility] Comment on above: Order Comment: Speci men Type: BLOOD SPECIMENOrdering Facility: [facility] Address: [address] Performed By: #### 2 4323-8, 19402-5, 2776-08 ####[facility] LABIA [id number] [place] [address] [place] Calcium [Mass/Vol] 8.7 mg/dL Normal 8.5-10.2 [facility] Comment on above: Order Comment: Speci men Type: BLOOD SPECIMENOrdering Facility: [facility] Address: [address] Performed By: #### 2 4323-8, , 2776-08 ####[facility] LABCLIA [id number] [place] [address] [place] Chloride [Moles/Vol] 105 mmol/L Normal 97-105 [facility] Comment on above: Order Comment: Speci men Type: BLOOD SPECIMENOrdering Facility: [facility] Address: [address] [place], [place] [address] Performed By: #### 2 4323-8, , 2776-08 ####[facility] LABIA [id number] [place] [address] [place] CO2 [Moles/Vol] 26 mmol/L Normal 22-30 [facility] Comment on above: Order Comment: Speci men Type: BLOOD SPECIMENOrdering Facility: [facility] Address: [address] [place] [address] Performed By: #### 2 4323-8, , 2776-08 ####[facility] [id number] [place] [address] [place] Creatinine [Mass/Vol] 0.53 mg/dL Low 0.58-0.96 [facility] Comment on above: Order Comment: Speci men Type: BLOOD SPECIMENOrdering Facility: [facility] Address: [address] [place], [place] [address] Performed By: #### 2 4323-8, , 2776-08 ####[facility] [id number] [place] [address] [place] Creatinine and Glomerular filtration rate.predicted panel (S/P/Bld) 91 mL/min/1.73m??? Normal >=60 [facility] Comment on above: Order Comment: Speci men Type: BLOOD SPECIMENOrdering Facility: [facility] Address: [address] [place], [place] [address] Result Comment: Marlyn mated Glomerular Filtration Rate (eGFR) is calculated using the 2020 CKD-EPI creatinine equation. This equation utilizes serum creatinine, sex, and age as parameters. The creatinine assay has traceable calibration to isotope dilution-mass spectrometry. Refer to KDIGO guidelines for clinical interpretation. In patients with unstable renal function, e.g. those with acute kidney injury, the eGFR may not accurately reflect actual GFR. Performed By: #### 2 4323-8, , 2776-08 ####[facility] LABCLIA [id number] [place] [address] [place] Glucose [Mass/Vol] 98 mg/dL Normal 74-99 [facility] Comment on above: Order Comment: Zay sandoval Type: BLOOD SPECIMENOrdering Facility: [facility] Address: [address] [place], [place] [address] Result Comment: The [place] Diabetes [employer] (ADA) provides guidance for cutoff values for fasting glucose and random glucose. The ADA defines fasting as no caloric intake for at least 8 hours. Fasting plasma glucose results between 100 to 125 mg/dL indicate increased risk for diabetes (prediabetes).Fasting plasma glucose results greater than or equal to 126 mg/dL meet the criteria for diagnosis of diabetes. In the absence of unequivocal hyperglycemia, results should be confirmed by repeat testing. In a patient with classic symptoms of hyperglycemia or hyperglycemic crisis, random plasma glucose results greater than or equal to 200 mg/dL meet the criteria for diagnosis of diabetes.Reference: Standards of Medical Care in Diabetes 2016, [place] [employer]. Diabetes Care. 2016.39(Suppl 1). Performed By: #### 2 4323-8, , 2776-08 ####[facility] LABCLIA [id number] [address] [address] [place] Potassium [Moles/Vol] 3.8 mmol/L Normal 3.7-5.1 [facility] Comment on above: Order Comment: Zay sandoval Type: BLOOD SPECIMENOrdering Facility: [facility] Address: [address] [place] [address] Performed By: #### 2 4323-8, , 2776-08 ####[facility] LABCLIA [id number] [place] [address] [place] Protein [Mass/Vol] 5.8 g/dL Low 6.3-8.0 [facility] Comment on above: Order Comment: Speci men Type: BLOOD SPECIMENOrdering Facility: [facility] Address: [address] [place] [address] Performed By: #### 2 4323-8, , 2776-08 ####[facility] LABCLIA [id number] [place] [address] [place] Sodium [Moles/Vol] 141 mmol/L Normal 136-144 [facility] Comment on above: Order Comment: Speci men Type: BLOOD SPECIMENOrdering Facility: [facility] Address: [address] [place] [address] Performed By: #### 2 4323-8, , 2776-08 ####[facility] LABCLIA [id number] [place] [address] [place] Urea nitrogen [Mass/Vol] 7 mg/dL Normal 7-21 [facility] Comment on above: Order Comment: Speci men Type: BLOOD SPECIMENOrdering Facility: [facility] Address: [address] [place] [address] Performed By: #### 2 4323-8, , 2776-08 ####[facility] LABCLIA [id number] [place] [address] [place] Magnesium SerPl-mCncon 04-09 Magnesium [Mass/Vol] 1.9 mg/dL Normal 1.7-2.3 [facility] Comment on above: Order Comment: Speci men Type: BLOOD SPECIMENOrdering Facility: [facility] Address: [address] [place] [address] Performed By: #### 2 4323-8, , 2776- ####[facility] LABCLIA [id number] [place] [address] [place] Phosphate SerPl-mCncon 04-09 Phosphate [Mass/Vol] 2.4 mg/dL Low 2.7-4.8 [facility] Comment on above: Order Comment: Speci men Type: BLOOD SPECIMENOrdering Facility: [facility] Address: [address] [address] Performed By: #### 2 4323-8, 104[address]-5, 2777-1 ####[facility] LABCLIA [id number] [address] [place] THERAPY NTon 04-09-2023 THERAPY NT Normal [facility] THERAPY NT Normal [facility] CASE MGT INIT ASSESon 2022 CASE MGT INIT ASSES Normal [facility] CBC panel Auto (Bld)on 04-08 Erythrocyte distribution width (RBC) [Ratio] 13.8 % Normal 11.5-15.0 [facility] Comment on above: Order Comment: Speci men Type: BLOOD SPECIMENOrdering Facility: [facility] Address: [address] [place] [address] Performed By: #### 5 8410-2 ####[facility] LABIA [id number] [place] [address] [place] Hematocrit (Bld) [Volume fraction] 36.0 % Normal 36.0-46.0 [facility] Comment on above: Order Comment: Speci men Type: BLOOD SPECIMENOrdering Facility: [facility] Address: [address] [address] Performed By: #### 5 8410-2 ####[facility] LABCLIA [id number] [place] [address] [place] Hemoglobin (Bld) [Mass/Vol] 11.8 g/dL Normal 11.5-15.5 [facility] Comment on above: Order Comment: Speci men Type: BLOOD SPECIMENOrdering Facility: [facility] Address: [address] [address] Performed By: #### 5 8410-2 ####[facility] [id number] [address] MCH (RBC) [Entitic mass] 32.4 pg Normal 26.0-34.0 [facility] Comment on above: Order Comment: Speci men Type: BLOOD SPECIMENOrdering Facility: [facility] Address: [address] [address] Performed By: #### 5 8410-2 ####[facility] LABIA [id number] [address] STATES [facility] MCHC (RBC) [Mass/Vol] 32.8 g/dL Normal 30.5-36.0 [facility] Comment on above: Order Comment: Speci men Type: BLOOD SPECIMENOrdering Facility: [facility] Address: [address] Performed By: #### 5 8410-2 ####[facility] [id number] [address] STATES [facility] MCV (RBC) [Entitic vol] 98.9 fL Normal 80.0-100.0 [facility] Comment on above: Order Comment: Speci men Type: BLOOD SPECIMENOrdering Facility: [facility] Address: [address] Performed By: #### 5 8410-2 ####[facility] [id number] [address] [place] Nucleated RBC (Bld) [#/Vol] 10*3/uL Normal <0.01 [facility] Comment on above: Order Comment: Speci men Type: BLOOD SPECIMENOrdering Facility: [facility] Address: [address] Performed By: #### 5 8410-2 ####[facility] LABIA [id number] [place] [address] [place] Platelet mean volume (Bld) [Entitic vol] 9.6 fL Normal 9.0-12.7 [facility] Comment on above: Order Comment: Speci men Type: BLOOD SPECIMENOrdering Facility: [facility] Address: [address] [place], [place] [address] Performed By: #### 5 8410-2 ####[facility] LABIA [id number] [place] [address] [place] Platelets (Bld) [#/Vol] 264 10*3/uL Normal 150-400 [facility] Comment on above: Order Comment: Speci men Type: BLOOD SPECIMENOrdering Facility: [facility] Address: [address] [place], [place] [address] Performed By: #### 5 8410-2 ####[facility] LABIA [id number] [place] [address] [place] RBC (Bld) [#/Vol] 3.64 10*6/uL Low 3.90-5.20 [facility] Comment on above: Order Comment: Speci men Type: BLOOD SPECIMENOrdering Facility: [facility] Address: [address] [place], [place] [address] Performed By: #### 5 8410-2 ####[facility] LABIA [id number] [place] [address] [place] WBC (Bld) [#/Vol] 8.97 10*3/uL Normal 3.70-11.00 [facility] Comment on above: Order Comment: Speci men Type: BLOOD SPECIMENOrdering Facility: [facility] Address: [address] [place], [place] [address] Performed By: #### 5 8410-2 ####[facility] LABIA [id number] [address] [place] Erythrocyte distribution width (RBC) [Ratio] 14.0 % Normal 11.5-15.0 [facility] Comment on above: Order Comment: Speci men Type: BLOOD SPECIMENOrdering Facility: [facility] Address: [address] [place] [address] Performed By: #### 5 8410-2 ####[facility] LABIA [id number] [place] [address] [place] Hematocrit (Bld) [Volume fraction] 35.4 % Low 36.0-46.0 [facility] Comment on above: Order Comment: Speci men Type: BLOOD SPECIMENOrdering Facility: [facility] Address: [address] [place] [address] Performed By: #### 5 8410-2 ####[facility] LABIA [id number] [address] [place] Hemoglobin (Bld) [Mass/Vol] 11.7 g/dL Normal 11.5-15.5 [facility] Comment on above: Order Comment: Speci men Type: BLOOD SPECIMENOrdering Facility: [facility] Address: [address] [place] [address] Performed By: #### 5 8410-2 ####[facility] LABIA [id number] [place] [address] [place] MCH (RBC) [Entitic mass] 33.2 pg Normal 26.0-34.0 [facility] Comment on above: Order Comment: Speci men Type: BLOOD SPECIMENOrdering Facility: [facility] Address: [address] [place], [place] [address] Performed By: #### 5 8410-2 ####[facility] LABIA [id number] [place] [address] [place] MCHC (RBC) [Mass/Vol] 33.1 g/dL Normal 30.5-36.0 [facility] Comment on above: Order Comment: Speci men Type: BLOOD SPECIMENOrdering Facility: [facility] Address: [address] Performed By: #### 5 8410-2 ####[facility] LABIA [id number] [address] [place] MCV (RBC) [Entitic vol] 100.6 fL High 80.0-100.0 [facility] Comment on above: Order Comment: Speci men Type: BLOOD SPECIMENOrdering Facility: [facility] Address: [address] Performed By: #### 5 8410-2 ####[facility] [id number] [address] [place] Nucleated RBC (Bld) [#/Vol] 10*3/uL Normal <0.01 [facility] Comment on above: Order Comment: Speci men Type: BLOOD SPECIMENOrdering Facility: [facility] Address: [address] [place], [place] [address] Performed By: #### 5 8410-2 ####[facility] [id number] [place] [address] [place] Platelet mean volume (Bld) [Entitic vol] 10.0 fL Normal 9.0-12.7 [facility] Comment on above: Order Comment: Speci men Type: BLOOD SPECIMENOrdering Facility: [facility] Address: [address] [place] [address] Performed By: #### 5 8410-2 ####[facility] LABIA [id number] [place] [address] [place] Platelets (Bld) [#/Vol] 277 10*3/uL Normal 150-400 [facility] Comment on above: Order Comment: Speci men Type: BLOOD SPECIMENOrdering Facility: [facility] Address: [address] Performed By: #### 5 8410-2 ####[facility] LABCLIA [id number] [place] [address] [place] RBC (Bld) [#/Vol] 3.52 10*6/uL Low 3.90-5.20 [facility] Comment on above: Order Comment: Speci men Type: BLOOD SPECIMENOrdering Facility: [facility] Address: [address] [place] [address] Performed By: #### 5 8410-2 ####[facility] LABIA [id number] [place] [address] [place] [facility] [place] WBC (Bld) [#/Vol] 9.47 10*3/uL Normal 3.70-11.00 [facility] Comment on above: Order Comment: Speci men Type: BLOOD SPECIMENOrdering Facility: [facility] Address: [address] [place] [address] Performed By: #### 5 8410-2 ####[facility] LABIA [id number] [place] [address] [place] Comprehensive metabolic 2000 panelon 04-08-2023 Albumin [Mass/Vol] 3.7 g/dL Low 3.9-4.9 [facility] Comment on above: Order Comment: Speci men Type: BLOOD SPECIMENOrdering Facility: [facility] Address: [address] [place] [address] Performed By: #### 2 4323-8, 27702-06, ####[facility] [id number] [place] [address] [place] ALP [Catalytic activity/Vol] 58 U/L Normal 34-123 [facility] Comment on above: Order Comment: Speci men Type: BLOOD SPECIMENOrdering Facility: [facility] Address: [address] [place] [address] Performed By: #### 2 4323-8, 27702-06, ####[facility] LABCLIA [id number] [place] [address] [place] ALT [Catalytic activity/Vol] 9 U/L Normal 7-38 [facility] Comment on above: Order Comment: Speci men Type: BLOOD SPECIMENOrdering Facility: [facility] Address: [address] [place] [address] Performed By: #### 2 4323-8, 2776-08, ####[facility]CL[facility] [id number] [place] [address] [place] Anion gap [Moles/Vol] 16 mmol/L Normal 9-18 [facility] Comment on above: Order Comment: Speci men Type: BLOOD SPECIMENOrdering Facility: [facility] Address: [address] [place] [address] Performed By: #### 2 4323-8, 2776-08, ####[facility]CL[facility] [id number] [place] [address] [place] AST [Catalytic activity/Vol] 19 U/L Normal 13-35 [facility] Comment on above: Order Comment: Speci men Type: BLOOD SPECIMENOrdering Facility: [facility] Address: [address] [place] [address] Performed By: #### 2 4323-8, 2776-08, ####[facility] LABCLIA [id number] [place] [address] [place] Bilirubin [Mass/Vol] 0.6 mg/dL Normal 0.2-1.3 [facility] Comment on above: Order Comment: Speci men Type: BLOOD SPECIMENOrdering Facility: [facility] Address: [address] [place], [place] [address] Performed By: #### 2 4323-8, 27702-06, ####[facility] LABCLIA [id number] [place] [address] [place] Calcium [Mass/Vol] 9.0 mg/dL Normal 8.5-10.2 [facility] Comment on above: Order Comment: Speci men Type: BLOOD SPECIMENOrdering Facility: [facility] Address: [address] [place] [address] Performed By: #### 2 4323-8, 2777-, ####[facility] LABCLIA [id number] [place] [address] [place] Chloride [Moles/Vol] 103 mmol/L Normal 97-105 [facility] Comment on above: Order Comment: Speci men Type: BLOOD SPECIMENOrdering Facility: [facility] Address: [address] [place] [address] Performed By: #### 2 4323-8, 27702-06, ####[facility] LABCLIA [id number] [place] [address] [place] CO2 [Moles/Vol] 20 mmol/L Low 22-30 [facility] Comment on above: Order Comment: Speci men Type: BLOOD SPECIMENOrdering Facility: [facility] Address: [address] [place], [place] [address] Performed By: #### 2 4323-8, 27702-06, ####[facility] LABCLIA [id number] [place] [address] [place] Creatinine [Mass/Vol] 0.56 mg/dL Low 0.58-0.96 [facility] Comment on above: Order Comment: Speci men Type: BLOOD SPECIMENOrdering Facility: [facility] Address: [address] [place], [place] [address] Performed By: #### 2 4323-8, 2771, ####[facility] LABCLIA [id number] [place] [address] [place] Creatinine and Glomerular filtration rate.predicted panel (S/P/Bld) 90 mL/min/1.73m??? Normal >=60 [facility] Comment on above: Order Comment: Zay sandoval Type: BLOOD SPECIMENOrdering Facility: [facility] Address: [address] [place] [id number] Result Comment: Marlyn mated Glomerular Filtration Rate (eGFR) is calculated using the 2020 CKD-EPI creatinine equation. This equation utilizes serum creatinine, sex, and age as parameters. The creatinine assay has traceable calibration to isotope dilution-mass spectrometry. Refer to KDIGO guidelines for clinical interpretation. In patients with unstable renal function, e.g. those with acute kidney injury, the eGFR may not accurately reflect actual GFR. Performed By: #### 2 4323-8, 2776-08, ####[facility] LABCLIA [id number] [place] [address] [place] Glucose [Mass/Vol] 132 mg/dL High 74-99 [facility] Comment on above: Order Comment: Zay sandoval Type: BLOOD SPECIMENOrdering Facility: [facility] Address: [address] [place] [address] Result Comment: The [place] Diabetes Association (ADA) provides guidance for cutoff values for fasting glucose and random glucose. The ADA defines fasting as no caloric intake for at least 8 hours. Fasting plasma glucose results between 100 to 125 mg/dL indicate increased risk for diabetes (prediabetes).Fasting plasma glucose results greater than or equal to 126 mg/dL meet the criteria for diagnosis of diabetes. In the absence of unequivocal hyperglycemia, results should be confirmed by repeat testing. In a patient with classic symptoms of hyperglycemia or hyperglycemic crisis, random plasma glucose results greater than or equal to 200 mg/dL meet the criteria for diagnosis of diabetes.Reference: Standards of Medical Care in Diabetes 2016, [place] [employer]. Diabetes Care. 2016.39(Suppl 1). Performed By: #### 2 4323-8, 2777-, ####[facility] LABCLIA [id number] [place] [address] [place] Potassium [Moles/Vol] 4.1 mmol/L Normal 3.7-5.1 [facility] Comment on above: Order Comment: Speci men Type: BLOOD SPECIMENOrdering Facility: [facility] Address: [address] [place] [address] Performed By: #### 2 4323-8, 2776-08, ####[facility] LABCLIA [id number] [place] [address] [place] Protein [Mass/Vol] 6.2 g/dL Low 6.3-8.0 [facility] Comment on above: Order Comment: Speci men Type: BLOOD SPECIMENOrdering Facility: [facility] Address: [address] [place] [address] Performed By: #### 2 4323-8, 2776-08, ####[facility] LABCLIA [id number] [place] [address] [place] Sodium [Moles/Vol] 139 mmol/L Normal 136-144 [facility] Comment on above: Order Comment: Speci men Type: BLOOD SPECIMENOrdering Facility: [facility] Address: [address] [place] [address] Performed By: #### 2 4323-8, 2776-08, ####[facility] LABCLIA [id number] [place] [address] [place] Urea nitrogen [Mass/Vol] 9 mg/dL Normal 7-21 [facility] Comment on above: Order Comment: Speci men Type: BLOOD SPECIMENOrdering Facility: [facility] Address: [address] [place], [place] [address] Performed By: #### 2 4323-8, 2776-08, ####[facility] LABCLIA [id number] [address] [address] [place] Magnesium SerPl-mCncon 04-08 Magnesium [Mass/Vol] 1.9 mg/dL Normal 1.7-2.3 [facility] Comment on above: Order Comment: Speci men Type: BLOOD SPECIMENOrdering Facility: [facility] Address: [address] [place], [place] [id number] Performed By: #### 2 4323-8, 2777-1, ####[facility] LABCLIA [id number] [address] [place] NURSING PROGon 04-08-2023 NURSING PROG Normal [facility] Phosphate SerPl-mCncon 04-08 Phosphate [Mass/Vol] 3.8 mg/dL Normal 2.7-4.8 [facility] Comment on above: Order Comment: Speci men Type: BLOOD SPECIMENOrdering Facility: [facility] Address: [address] [place], [place] [address] Performed By: #### 2 4323-8, 2776-08, ####[facility] LABCLIA [id number] [place] [address] [place] THERAPY NTon 04-08-2023 THERAPY NT Normal [facility] THERAPY NT Normal [facility] XR CHEST 1V FRONTAL PORTon 0 04-08-2023 XR CHEST 1V FRONTAL PORT Normal [facility] ANES POSTPROC EVALon 023 ANES POSTPROC EVAL Normal [facility] ANES PRE-OPon 04-07-2023 ANES PRE-OP Normal [facility] BRIEF OP NOTon 04-07-2023 BRIEF OP NOT Normal [facility] CONFIRM BLOOD TYPEon 023 ABO A Normal [facility] Comment on above: Order Comment: Speci men Type: BLOOD SPECIMENOrdering Facility: [facility] Address: [address] [place], [place] [phone] Performed By: #### C ONABO ####[facility] BLOOD BANKCLIA [id number] [address] [place] Rh Nom (Bld) Positive Normal [facility] Comment on above: Order Comment: Speci men Type: BLOOD SPECIMENOrdering Facility: [facility] Address: [address] [place] [address] Performed By: #### C ONABO ####[facility] BLOOD BANKCLIA [id number] [address] CYTOLOGY NON-GYNon CASE REPORT Normal [facility] Comment on above: Order Comment: Speci men Type: SPECIMEN OBTAINED BY LAVAGEOrdering Facility: [facility] Address: [address] [place] [address] Result Comment: [facility] Cytology Report Case: [id number] Provider: Eliot Castillo MD Collected: 04/07/2023 12:23 PMOrdering Location: Admitting Received: 04/07/2023 02:37 PMPathologist: Catina Pyle MDSpecimen: PELVIC WASHING Performed By: #### C YTONON ####[facility] LABCLIA [id number] [address] CLINICAL HISTORY Normal [facility] Comment on above: Order Comment: Speci men Type: SPECIMEN OBTAINED BY LAVAGEOrdering Facility: [facility] Address: [address] [place] [address] Result Comment: Pre- op diagnosis:Ovarian mass [N83.8]Preop examination [Z01.818] Performed By: #### C YTONON ####[facility] LABCLIA [id number] [address] FINAL DIAGNOSIS Normal [facility] Comment on above: Order Comment: Speci men Type: SPECIMEN OBTAINED BY LAVAGEOrdering Facility: [facility] Address: [address] [place] [address] Result Comment: A - PELVIC WASHING Negative for malignant cells.The following cell blocks were associated with this case:A1Cell Block, Alcohol Fixed Performed By: #### C YTONON ####[facility] LABCLIA [id number] [address] OF [facility] FINAL PERFORMING LAB Normal [facility] Comment on above: Order Comment: Speci men Type: SPECIMEN OBTAINED BY LAVAGEOrdering Facility: [facility] Address: [address] [place] [address] Result Comment: Tech nical component, air tester screening performed at [facility], [facility] [place] [address] CLIA# [id number] interpretation performed at [facility], [facility] [place] [address] CLIA# [id number] Director: Antonio Esparza M.D. Performed By: #### C YTONON ####[facility] LABCLIA [id number] [address] GROSS DESCRIPTION Normal [facility] Comment on above: Order Comment: Speci men Type: SPECIMEN OBTAINED BY LAVAGEOrdering Facility: [facility] Address: [address] [place] [address] Result Comment: David. Doris RYAN [id number] cc cloudy red fluid with material. ThinPrep and Cell Block prepared. Performed By: #### C YTONON ####[facility] LABCLIA [id number] [address] OF [facility] OPERATIVE NOon 04-07-2023 OPERATIVE NO Normal [facility] SURGICAL PATHOLOGYon 023 CASE REPORT Normal [facility] Comment on above: Order Comment: Speci men Type: TISSUE SPECIMENOrdering Facility: [facility] Address: [address] [place] [address] Result Comment: Surg ica Pathology Report Case: [id number] Provider: Eliot Castillo MD Collected: 04/07/2023 12:27 PMOrdering Location: Admitting Received: 04/07/2023 12:32 PMPathologist: Mamta Porter MDIntraop: Sana Velasquez MDSpecimens: A) - FALLOPIAN TUBE AND OVARY RIGHT B) - UTERUS CERVIX WITH FALLOPIAN TUBE AND OVARY LEFT C) - PERITONEUM BIOPSY, left pelvic peritoneum D) - PERITONEUM BIOPSY, cul-de-sac peritoneum E) - PERITONEUM BIOPSY, bladder peritoneum F) - PERITONEUM BIOPSY, right pelvic peritoneum G) - LYMPH NODE, right pelvic lymph nodes H) - LYMPH NODE, left para aortic lymph nodes I) - PERITONEUM BIOPSY, peritoneum over right ureter J) - LYMPH NODE, right para aortic lymph nodes K) - PERITONEUM BIOPSY, left para colic gutter peritoneum L) - PERITONEUM BIOPSY, right para colic gutter peritoneum M) - APPENDIX N) - OMENTUM RESECTION O) - PERITONEUM BIOPSY, right diaphram peritoneum biopsy Performed By: #### S ####[facility] LABCLIA [id number] [address] STATES OF [facility] CLINICAL HISTORY Normal [facility] Comment on above: Order Comment: Speci men Type: TISSUE SPECIMENOrdering Facility: [facility] Address: [address] [place] [address] Result Comment: Pre- op diagnosis:Ovarian mass [N83.8]Preop examination [Z01.818] Performed By: #### S ####[facility] LABCLIA [id number] [address] [place] DIAGNOSIS COMMENT Dr. Nicole fernandeze d selected slides from part A and agrees with the diagnosis. Normal [facility] Comment on above: Order Comment: Speci men Type: TISSUE SPECIMENOrdering Facility: [facility] Address: [address] [place] [address] Performed By: #### S ####[facility] LABCLIA [id number] [address] FINAL DIAGNOSIS Normal [facility] Comment on above: Order Comment: Speci men Type: TISSUE SPECIMENOrdering Facility: [facility] Address: [address] [place] [address] Result Comment: A. 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 Uterus, cervix, left ovary and fallopian tube, hysterectomy with left salpingo-oophorectomy:- Cervix: No significant pathologic abnormality.- Endometrium: Atrophy.- Myometrium: Adenomyosis.- Serosa: Adhesions.- Left ovary: No significant pathologic abnormality.- Left fallopian tube: No significant pathologic abnormality.C. Left pelvic peritoneum, biopsy: Non-diagnostic specimen, tissue did not survive processing.D. Cul-de-sac peritoneum, biopsy: Benign fibrovascular tissue.E. Bladder peritoneum, biopsy: Benign fibrovascular tissue with chronic inflammation.F. Right pelvic peritoneum, biopsy: Benign fibrovascular tissue with inflammation and hemosiderin laden macrophages.G. Lymph nodes, right pelvic, dissection: Nine benign lymph nodes (0/9).H. Lymph nodes, left para-aortic, excision: Two benign lymph nodes (0/2).I. Peritoneum over right ureter, biopsy: Benign fibroadipose tissue.J. Lymph nodes, right para-aortic, excision: Three benign lymph nodes (0/3).K. Left paracolic gutter peritoneum, biopsy: Benign fibroadipose tissue.L. Right paracolic gutter peritoneum, biopsy: Benign fibroadipose tissue.M. Appendix, appendectomy: Fibrous obliteration.N. Omentum, excision: Benign fibroadipose tissue.O. Right diaphragm, biopsy: Benign fibroadipose tissue. Performed By: #### S ####[facility] LABCLIA [id number] [facility] [id number] [place] FINAL PERFORMING LAB Normal [facility] Comment on above: Order Comment: Speci men Type: TISSUE SPECIMENOrdering Facility: [facility] Address: [address] [place] [id number] Result Comment: Diag nostic interpretation performed at [facility], [address] [place] [address] CLIA# [id number] Director: Antonio Esparza M.D. Performed By: #### S ####[facility] LABCLIA [id number] [address] [place] [address] [place] GROSS DESCRIPTION Normal [facility] Comment on above: Order Comment: Speci men Type: TISSUE SPECIMENOrdering Facility: [facility] Address: [address] [place] [address] Result Comment: A. F ALLOPIAN TUBE AND OVARY RIGHTReceived in formalin labeled fallopian tube and ovary right is a right fallopian tube and ovary weighing 998.0 g. The right fallopian tube is 16 cm long and 0.5 cm in greatest diameter. The ovary is expanded and distorted by a mass measuring 18.5 x 14 x 8.8 cm. The external surface of the mass is [id number]-xwido and smooth. Serial sectioning of the mass reveals that it is predominantly solid (80 to 90%) and multinodular, with prominent areas of caseous necrosis. The solid areas are de souza to doyle-white with focal hemorrhage. The cystic areas are characterized by a smooth lining with no obvious papillary excrescences. The size of the ovary proper is unable to be determined as it is unclear where the ovary ends and the solid mass begins.[employer] sections are submitted as follows:A 2-11 specialty sales representative sections of massA 12-13 possible residual [id number] fallopian tube fimbriated end bisected and totally submitted with specialty sales representative cross-sectionMW 04/08/2023. UTERUS CERVIX WITH FALLOPIAN TUBE AND OVARY LEFTReceived in formalin labeled uterus, cervix with fallopian tube and ovary left is a uterus with attached cervix and left fallopian tube and ovary weighing 44.6 g in total and measuring 8.8 x 4.2 x 2.3 cm. The cervical os is slitlike and measures 1.5 cm in diameter. The serosal surface of the uterus is pink-brown, smooth and glistening. The endocervical canal measures 3 cm in length and is unremarkable. The endometrial cavity measures 2.9 cm in greatest length by 1.9 cm in greatest width. The endometrium is 2 mm thick. The myometrium is 1.1 cm thick. Sectioning through the uterus reveals no focal lesions. The left fallopian tube measures 3.7 cm long by 0.5 cm in greatest width. There is an unremarkable serosal surface is brown, smooth and glistening; there is a normal fimbriated end. The right ovary measures 2 x 1.2 x 0.4 cm. The external surface is white with a crinkled appearance ovarian parenchyma is unremarkable.[employer] sections are submitted as follows:B1 cervix 6:00B2 cervix 12:00B3 anterior uterine wallB4 posterior uterine wallB5 left ovaryB6 left fallopian tube fimbriated end bivalved and totally submitted and specialty sales representative cross-sectionMW 04/08/2023. PERITONEUM BIOPSYReceived fresh labeled left pelvic peritoneum is a irregular segment of de souza-pink partially cauterized membranous tissue measuring 1.5 x 0.3 x 0.3 cm. Tissue may not survive processing. Specimen is entirely submitted in C1.D. PERITONEUM BIOPSYReceived fresh labeled cul-de-sac peritoneum is a irregular segment of pink-red membranous soft tissue measuring 0.4 x 0.3 x 0.3 cm. Specimen is entirely submitted in D1.E. PERITONEUM BIOPSYReceived fresh labeled bladder peritoneum is a irregular segment of de souza-pink membranous soft tissue measuring 0.6 x 0.4 x 0.3 cm. Specimen is entirely submitted in E1.F. PERITONEUM BIOPSYReceived fresh labeled right pelvic peritoneum is a irregular segment of de souza-pink membranous soft tissue with attached adipose tissue measuring 1.0 x 0.7 x 0.4 cm. Specimen is entirely submitted in F1.G. LYMPH NODEReceived fresh labeled right pelvic lymph nodes is a segment of fibroadipose soft tissue measuring 7.0 x 5.0 x 1.5 cm. The specimen is sectioned to reveal 10 lymph node candidates ranging from 0.6 cm to 1.4 cm in greatest dimension. The nodules are totally submitted as follows:G1 4 lymph node candidates, in totoG2 3 lymph node candidates, in totoG3 3 lymph node candidates, in totoH. LYMPH NODEReceived fresh labeled left para-aortic lymph nodes is a segment of fibroadipose soft tissue measuring 0 x 2.0 x 1.0 cm. The specimen is palpated to reveal 2 lymph node candidates. Lymph node candidate #1 measures 2.0 x 1.5 x 1.0 cm. Lymph node candidate #2 measures 1.8 x 1.0 x 0.9 cm.Nodules are submitted as follows:H1 lymph node #1, in totoH2 lymph node #2 in totoI. PERITONEUM BIOPSYReceived fresh labeled peritoneum over right ureter are 2 irregular segments of de souza-pink membranous aggregating to 2.5 x 1.5 x 0.8 cm. Specimen is entirely submitted in I1.J. LYMPH NODEReceived fresh labeled right periaortic lymph nodes is a segment of fibroadipose soft tissue measuring 4.5 x 3.0 x 1.5 cm. The specimen is palpated and sectioned to reveal 4 lymph node candidates ranging from 1.5 cm to 2.8 cm greatest dimension.The nodules are entirely submitted as follows:J1 1 lymph node candidate, in totoJ2 1 lymph node candidate, in totoJ3 2 lymph node candidates, in totoK. PERITONEUM BIOPSYReceived fresh labeled left paracolic gutter peritoneum is an irregular segment of de souza-pink membranous soft tissue with attached adipose tissue measuring 1.0 x 0.6 x 0.3 cm. Specimen is entirely submitted in K1.L. PERITONEUM BIOPSYReceived fresh labeled right paracolic gutter peritoneum is an irregular segment of de souza-pink membranous soft tissue with attached adipose tissue measuring 1.0 x 0.8 x 0.3 cm. Specimen is entirely submitted in L1.M. APPENDIXReceived in formalin labeled appendix is an appendix measuring 2.6 cm in length by 0.5 cm in diameter with attached mesoappendix (3.3 x 1.7 x 1.0 cm). The serosal surfaces are de souza-pink, smooth and glistening. No defects are grossly identified. The attached mesoappendiceal fat is yellow-brown and lobulated. Sectioning reveals a unremarkable lumen.[employer] sections are submitted as follows:M1 inked proximal resection margin and mesoappendiceal resection marginM2 entire distal tip, bisected and central cross-sections through lumenGross examination performed at [facility] [address], [place] [address] CLIA# [id number] 04/07/23 3:59 PMN. OMENTUM RESECTIONReceived fresh, labeled omentum resection is an unoriented, lobulated portion of adipose tissue, consistent with omentum, measuring 25.0 x 15.0 x 0.6 cm. Sectioning reveals soft, de souza, homogenous cut surfaces consisting entirely of adipose tissue. [employer] sections are submitted in cassettes N1-N6.AKA April 07, 2023 2:53 PMGross examination performed at [facility], [address] [place], [place] [address]O. PERITONEUM BIOPSYReceived fresh labeled right diaphragm peritoneum biopsy irregular segment of de souza-pink membranous soft tissue measuring 0.3 x 0.2 x 0.1 cm. Specimen is entirely submitted in O1.[place] [address] CLIA# [id number] 04/07/23 3:55 PM Performed By: #### S ####[facility] [id number] [address] [place] INTRAOPERATIVE DIAGNOSIS Normal [facility] Comment on above: Order Comment: Speci men Type: TISSUE SPECIMENOrdering Facility: [facility] Address: [address] [place] [address] Result Comment: A. 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 Juanito Will).Intraoperative diagnosis performed at [facility], [address] [place], [place] [address]B. UTERUS CERVIX WITH FALLOPIAN TUBE AND OVARY LEFTFrozen section cancelled per Dr. Juanito Will. Grossly normal endometrium. Discussed with Dr. Castillo.Intraoperative diagnosis performed at [place] [address] Performed By: #### S ####[facility] [id number] [address] [place] SYNOPTIC REPORT Normal [facility] Comment on above: Order Comment: Speci men Type: TISSUE SPECIMENOrdering Facility: [facility] Address: [address] [place] [address] Result Comment: OVAR Y or FALLOPIAN TUBE or PRIMARY PERITONEUMOVARY OR FALLOPIAN TUBE OR PRIMARY PERITONEUM: RESECTION - All Elwivvokl5dn Edition - Protocol posted: 10/28/2022SPECIMEN Procedure: Total hysterectomy and bilateral salpingo-oophorectomy Procedure: Omentectomy Procedure: Peritoneal biopsies Hysterectomy Type: Abdominal Specimen Integrity: Right Ovary Integrity: Per operative report, the mass was ruptured prior to the surgeryTUMOR Tumor Site: Right ovary Tumor Size: Greatest Dimension (Centimeters): 18.5 cm 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, well differentiated Ovarian Surface Involvement: Not identified Fallopian Tube Surface Involvement: Not identified Other Tissue / Organ Involvement: Not identified Peritoneal / Ascitic Fluid Involvement: Malignant cells not identified Chemotherapy Response Score (CRS): No known presurgical therapyREGIONAL LYMPH NODES Regional Lymph Node Status: : All regional lymph nodes negative for tumor cells Number of Lymph Nodes Examined: 14 Shant Site(s) Examined: Right pelvic Shant Site(s) Examined: Right para-aortic Shant Site(s) Examined: Left para-aorticpTNM CLASSIFICATION (AJCC 8th Edition) Reporting of pT, pN, and (when applicable) pM categories is based on information available to the pathologist at the time the report is issued. As per the AJCC (Chapter 1, 8th Ed.) it is the managing physician???s responsibility to establish the final pathologic stage based upon all pertinent information, including but potentially not limited to this pathology report. pT Category: pT1c2 pN Category: [id number] STAGE FIGO Stage: IC2 Performed By: #### S ####[facility] [id number] [place] [address] [place] CNPNon 04-06-2023 CNPN Normal [facility] HISTORY PHYSICALon 3 HISTORY PHYSICAL Normal [place] [facility] CNPN Telephone (AGCARDPOB ) ----- STEFANO WASHINGTON ([id number]) 1940 F Date Time Provider Department 03/24/23 DARI ARRIAGA During your visit today, we recorded the following information about you: Nanci Calloway 03/24/2023 2:37 PM Signed Received CC in [facility] but patient will be receiving services elsewhere . Allergies As of Date: 03/24/2023 Noted Allergy Reaction MACROBID (NITROFURANTOIN MONOHYD/*01/21/2023 8 - GI Upset Date Reviewed: 03/22/2023 Reviewed by: America Gonsalez MA - Fully Assessed Reason for Visit: Appointment [186] Prescriptions as of 03/24/2023 - Bisacodyl (DULCOLAX) 5 mg tab Take 1 tablet by mouth as directed. Take 2 tablets at 3pm the day before surgery - polyethylene glycol 3350 (MIRALAX) 17 gram/dose powder Purchase one 238 gram bottle of Miralax Use as directed - traMADol (ULTRAM) 50 mg tablet Take 1 tablet by mouth twice daily for 90 days. for arthritis pain. - lovastatin 40 mg tablet Take 1 tablet by mouth daily at bedtime. For cholesterol. - NIFEdipine ER (PROCARDIA XL) 30 mg 24 hr tablet Take 1 tablet by mouth once daily. - omeprazole (PRILOSEC) 20 mg capsule Take 1 capsule by mouth once daily. - tiZANidine HCl (ZANAFLEX) 2 mg capsule Take 1 capsule by mouth twice daily as needed. - levothyroxine (SYNTHROID) 88 mcg tablet take one tablet by mouth wednesday through wednesday and none on wednesday. - THERAPEUTIC MULTIVITAMIN TAB daily - Calcium-Cholecalciferol (D3) 500-200 mg-unit ORAL Tab Take one(1) tablet two(2) times daily. Facility-Administered Medications as of 03/24/2023 - perflutren lipid microspheres 1.3 mL in NaCl (PF) 0.9% 10 mL injection (DEFINITY) - sodium chloride 0.9 % (flush) 10 mL (BD POSIFLUSH) Problem List As Of Date 03/24/2023 Noted Resolved Essential hypertension [I10] 10/20/2005 Osteopenia [M85.80] 11/24/2006 Acute gastritis without mention of hemorrhage [*02/14/2009 12/07/2014 Iron deficiency anemia, unspecified [D50.9] 02/14/2009 05/10/2018 Mixed hyperlipidemia [E78.2] 04/15/2011 Pain in joint, pelvic region and thigh [M25.559]10/27/2012 11/28/2012 Enthesopathy of hip region [M76.899] 10/27/2012 11/28/2012 Acquired hypothyroidism [E03.9] 07/12/2015 Gastroesophageal reflux disease without esophag*07/12/2015 Osteoarthritis of multiple joints [M15.9] 07/12/2015 Acute right-sided low back pain with right-side*05/13/2016 Medicare annual wellness visit, subsequent [Z00*02/26/2017 Screening for colon cancer [Z12.11] 02/26/2017 Chronic pain of right knee [M25.561, G89.29] 10/29/2017 Medication management [Z79.899] 09/20/2018 Iron deficiency anemia, unspecified [D50.9] Pneumonia due to COVID-19 virus [U07.1, J12.82] 05/07/2021 History of pulmonary embolism [Z86.711] 06/06/2021 Hiatal hernia [K44.9] 06/18/2021 Acute respiratory failure (HCC) [J96.00] 06/18/2021 10/09/2021 Age-related physical debility [R54] 06/18/2021 Aortic stenosis, moderate [I35.0] 12/19/2021 Advance directive discussed with patient [Z71.8*06/26/2022 Sciatica, right side [M54.31] 02/02/2023 Falls, subsequent encounter [W19.XXXD] 02/02/2023 Other hydronephrosis [N13.39] 03/10/2023 Ovarian mass, right [N83.8] 03/10/2023 Encounter Status:Closed by NANCI CALLOWAY on 03/24/23 [facility] ECG COMPLETEon 03-22-2023 Atrial Rate 99 BPM [facility] Calculated P [place] 39 degrees [facility] Calculated R [place] 114 degrees [facility] Calculated T [place] 6 degrees [facility] P-R Interval 177 ms [facility] QRS Duration 133 ms [facility] QT Interval 374 ms [facility] QTC Calculation (Bazett) 483 ms [facility] Ventricular Rate [address] [facility] CNPNon 03-16-2023 CNPN Normal [facility] CNCOon 03-10-2023 CNCO Letter Text Normal [facility] CNPNon 03-10-2023 CNPN Normal [facility] CT ABD/PEL W IVCONon 023 Radiology Result ACTIONABLE Abnormal [facility] CT ABD/PEL W IVCON Invalid Interpretation Code [facility] CNPNon 02-26-2023 CNPN Normal [facility] CNPNon 02-02-2023 CNPN Normal [facility] CNTHERAPYon 02-02-2023 CNTHERAPY Normal [facility] XR Lumbar spine 3 Viewson IMPRESSION: 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 COMPRESSION FRACTURE OF THE T11 VERTEBRAL BODY. Tourist Camp Attendant: PSCB Transcribe Date/Time: Jan 30 2023 1:51P Dictated by : CHRISTOPHER GIRALDO MD This examination was interpreted and the report reviewed and electronically signed by: CHRISTOPHER GIRALDO MD on Jan 30 2023 1:56PM [facility] DIVISION OF RADIOLOGY * * *Final Report* * * DATE OF EXAM: Jan 27 2023 12:01PM WOX [id number] - XR LUMBAR 3V AP/LAT/L5-S1 / PROCEDURE REASON: multiple diagnoses * * * * Physician Interpretation * * * * EXAM: LUMBAR SPINE, 3 VIEWS CLINICAL: 82-year-old female with sciatica on the right side status post fall TECHNIQUE: AP, lateral coned down lateral COMPARISON: None RESULTS: Counting reference: Anatomic Variant: None. L4-5 is considered the level of the iliac crest and assume there are 5 lumbar-type vertebrae. Prominent lumbar lordosis. Multilevel mild to moderate disc space narrowing at L1/L2 through L5/S1. Bones are osteopenic. Multilevel facet degenerative changes. 7 mm, grade 1 anterolisthesis of L4 and L5. Abdominal aortic calcifications are present. Moderate to severe anterior wedge compression fracture T11. Degenerative disc disease and thoracic spine. DIVISION OF RADIOLOGY Provider, Matthew Roca - 01/30/2023 * * *Final Report* * * DATE OF EXAM: Jan 27 2023 12:01PM WOX 5228 - XR LUMBAR 3V AP/LAT/L5-S1 / PROCEDURE REASON: multiple diagnoses * * * * Physician Interpretation * * * * EXAM: LUMBAR SPINE, 3 VIEWS CLINICAL: 82-year-old female with sciatica on the right side status post fall TECHNIQUE: AP, lateral coned down lateral COMPARISON: None RESULTS: Counting reference: Anatomic Variant: None. L4-5 is considered the level of the iliac crest and assume there are 5 lumbar-type vertebrae. Prominent lumbar lordosis. Multilevel mild to moderate disc space narrowing at L1/L2 through L5/S1. Bones are osteopenic. Multilevel facet degenerative changes. 7 mm, grade 1 anterolisthesis of L4 and L5. Abdominal aortic calcifications are present. Moderate to severe anterior wedge compression fracture T11. Degenerative disc disease and thoracic spine. IMPRESSION IMPRESSION: MULTILEVEL DEGENERATIVE DISC AND FACET DISEASE. 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 COMPRESSION FRACTURE OF THE T11 VERTEBRAL BODY. Tourist Camp Attendant: IVONNE Transcribe Date/Time: Jan 30 2023 1:51P Dictated by : CHRISTOPHER GIRALDO MD This examination was interpreted and the report reviewed and electronically signed by: CHRISTOPHER GIRALDO MD on Jan 30 2023 1:56PM EST [facility] XR Lumbar spine 3 ViewsOrder ed By: Ccf Provider on 01-30-2023 [facility] CNOVon 01-27-2023 CNOV Normal [facility] CNPNon 01-27-2023 CNPN Normal [facility] XR LUMBAR 3V AP/LAT/L5-S1on 01-27-2023 XR LUMBAR 3V AP/LAT/L5-S1 Normal [facility] XR LUMBAR GENERAL 3V AP/LAT/ L5-S1on 01-27-2023 [facility] XR Lumbar spine 3 Viewson Radiology Study observation (narrative) [facility] Bacteria Ur Culton 3 Bacteria identified Cx Nom (U) Normal [facility] Comment on above: Performed By: #### 6 30-4 ####[facility] LABCLIA [id number] [address] [place] CNPNon 01-25-2023 CNPN Normal [facility] XR Chest PA and Lateralon IMPRESSION: 1. No pleural effusion or consolidation 2. Large hiatal hernia [employer]ist [employer] Attendant: IVONNE Transcribe Date/Time: Jul 20 2022 8:31A Dictated by : JANAY DESAI MD This examination was interpreted and the report reviewed and electronically signed by: JANAY DESAI MD on Jul 20 2022 8:32AM [facility] DIVISION OF RADIOLOGY * * *Final Report* * * DATE OF EXAM: Jul 20 2022 8:27AM WOX 5291 - XR CHEST 2V FRONTAL/LAT / PROCEDURE REASON: multiple diagnoses * * * * Physician Interpretation * * * * EXAMINATION: CHEST RADIOGRAPH (2 VIEW FRONTAL & LATERAL) CLINICAL HISTORY: Acute cough Wheezing MQ: XC2_6 EXAM DATE/TIME: 07/20/2022 8:27 AM COMPARISON: No relevant prior studies available. RESULT: Lines, tubes, and devices: None. Lungs and pleura: Scarring in the mid to lower right lung. No consolidation. No lung mass. No pleural effusion. No pneumothorax. Cardiomediastinal silhouette: Enlarged cardiac silhouette. No widening of mediastinum. Bones and soft tissues: Kyphosis and degenerative disease of the thoracic spine. Large hiatal hernia. DIVISION OF RADIOLOGY Provider, [facility] - 07/20/2022 * * *Final Report* * * DATE OF EXAM: Jul 20 2022 8:27AM WOX 5291 - XR CHEST 2V FRONTAL/LAT / PROCEDURE REASON: multiple diagnoses * * * * Physician Interpretation * * * * EXAMINATION: CHEST RADIOGRAPH (2 VIEW FRONTAL & LATERAL) CLINICAL HISTORY: Acute cough Wheezing MQ: XC2_6 EXAM DATE/TIME: 07/20/2022 8:27 AM COMPARISON: No relevant prior studies available. RESULT: Lines, tubes, and devices: None. Lungs and pleura: Scarring in the mid to lower right lung. No consolidation. No lung mass. No pleural effusion. No pneumothorax. Cardiomediastinal silhouette: Enlarged cardiac silhouette. No widening of mediastinum. Bones and soft tissues: Kyphosis and degenerative disease of the thoracic spine. Large hiatal hernia. IMPRESSION IMPRESSION: 1. No pleural effusion or consolidation 2. Large hiatal hernia [employer]ist [employer] Attendant: IVONNE Transcribe Date/Time: Jul 20 2022 8:31A Dictated by : JANAY DESAI MD This examination was interpreted and the report reviewed and electronically signed by: JANAY DESAI MD on Jul 20 2022 8:32AM EST [facility] Radiology Study observation (narrative) [facility] XR Chest PA and LateralOrder ed By: Ccf Provider on 07-20-2022 [facility] LIPID PANEL, NONFASTINGon Cholesterol [Mass/Vol] 238 mg/dL High <200 mg/dL [facility] HDL Cholesterol, Nonfasting 64 mg/dL >39 mg/dL [facility] LDL Cholesterol, Nonfasting 127 mg/dL High <100 mg/dL [facility] LDL/HDL Ratio, Nonfasting 1.98 mg/dL <2.54 mg/dL [facility] Non HDL Cholesterol, Nonfasting 174 mg/dL High <130 mg/dL [facility] Total Chol/HDL Ratio, Nonfasting 3.72 mg/dL <5.10 mg/dL [facility] Triglycerides, Nonfasting 235 mg/dL High <150 mg/dL [facility] VLDL Cholesterol, Nonfasting 47 mg/dL High <30 mg/dL [facility] TSH BLDon 06-27-2022 TSH Qn 3.260 m[IU]/L 0.270 - 4.200 mIU/L [facility] Urinalysis complete panel (U )on 12-13-2021 Bilirubin Ql (U) Negative Negative [facility] Clarity (Unsp spec) Clear Clear [facility] Color (U) Light Yellow Yellow [facility] Epithelial cells LM.HPF (Urine sed) [#/Area] Few [facility] Glucose Test strip (U) [Mass/Vol] Negative Negative [facility] Hemoglobin Ql (U) Negative Negative [facility] Ketones Ql (U) Negative Negative [facility] Leukocyte esterase Test strip Ql (U) Negative Negative [facility] Nitrite Ql (U) Negative Negative [facility] pH (U) 6.0 [pH] 5.0 - 8.0 [facility] Protein (U) [Mass/Vol] Negative Negative Cl [facility] RBC LM.HPF (Urine sed) [#/Area] 0-3 /HPF 0-3 /HPF [facility] Specific gravity (U) [Rel density] 1.006 1.005 - 1.030 [facility] Urobilinogen Ql (U) Negative Negative [facility] WBC LM.HPF (Urine sed) [#/Area] 0-5 /HPF 0-5 /HPF [facility] CBC W Auto Differential pane l (Bld)on 12-12-2021 Abs Immature Gran <0.03 <0.10 k/uL [facility] Basophils (Bld) [#/Vol] 0.06 10*3/uL <0.11 k/uL [facility] Basophils/100 WBC (Bld) 1.2 % [facility] Differential cell count method Nom (Bld) Auto [facility] Eosinophils (Bld) [#/Vol] 0.13 10*3/uL <0.46 k/uL [facility] Eosinophils/100 WBC (Bld) 2.6 % [facility] Erythrocyte distribution width (RBC) [Ratio] 14.2 % 11.5 - 15.0 % [facility] Hematocrit (Bld) [Volume fraction] 39.6 % 36.0 - 46.0 % [facility] Hemoglobin (Bld) [Mass/Vol] 12.6 g/dL 11.5 - 15.5 g/dL [facility] Immature Gran % 0.4 % [facility] Lymphocytes (Bld) [#/Vol] 1.67 10*3/uL 1.00 - 4.00 k/uL [facility] Lymphocytes/100 WBC (Bld) 33.7 % [facility] MCH (RBC) [Entitic mass] 31.0 pg 26.0 - 34.0 pg [facility] MCHC (RBC) [Mass/Vol] 31.8 g/dL 30.5 - 36.0 g/dL [facility] MCV (RBC) [Entitic vol] 97.5 fL 80.0 - 100.0 fL [facility] Monocytes (Bld) [#/Vol] 0.42 10*3/uL <0.87 k/uL [facility] Monocytes/100 WBC (Bld) 8.5 % [facility] Neutrophils (Bld) [#/Vol] 2.65 10*3/uL 1.45 - 7.50 k/uL [facility] Neutrophils/100 WBC (Bld) 53.6 % [facility] Nucleated RBC (Bld) [#/Vol] 10*3/uL <0.01 k/uL [facility] Nucleated RBC/100 WBC (Bld) [Ratio] 0.0 /100 WBC [facility] Platelet mean volume (Bld) [Entitic vol] 10.9 fL 9.0 - 12.7 fL [facility] Platelets (Bld) [#/Vol] 239 10*3/uL 150 - 400 k/uL [facility] RBC (Bld) [#/Vol] 4.06 10*6/uL 3.90 - 5.20 m/uL [facility] WBC (Bld) [#/Vol] 4.95 10*3/uL 3.70 - 11.00 k/uL [facility] Comprehensive metabolic 2000 panelon 12-12-2021 Albumin [Mass/Vol] 4.7 g/dL 3.9 - 4.9 g/dL [facility] ALP [Catalytic activity/Vol] 66 U/L 34 - 123 U/L [facility] ALT [Catalytic activity/Vol] 19 U/L 7 - 38 U/L [facility] Anion gap [Moles/Vol] 12 mmol/L 9 - 18 mmol/L [facility] AST [Catalytic activity/Vol] 30 U/L 13 - 35 U/L [facility] Bilirubin [Mass/Vol] 0.4 mg/dL 0.2 - 1 .3 mg/dL [facility] Calcium [Mass/Vol] 9.8 mg/dL 8.5 - 10. 2 mg/dL [facility] Chloride [Moles/Vol] 102 mmol/L 97 - 10 5 mmol/L [facility] CO2 [Moles/Vol] 26 mmol/L 22 - 30 mmol/L [facility] Creatinine [Mass/Vol] 0.65 mg/dL 0.58 - 0.96 mg/dL [facility] Estimated Glomerular Filtration Rate 88 mL/min/1.73m >=60 mL/min/1.7 3m [facility] Glucose [Mass/Vol] 102 mg/dL High 74 - 99 mg/dL [facility] Potassium [Moles/Vol] 4.8 mmol/L 3.7 - 5.1 mmol/L [facility] Protein [Mass/Vol] 7.8 g/dL 6.3 - 8.0 g/dL [facility] Sodium [Moles/Vol] 140 mmol/L 136 - 144 mmol/L [facility] Urea nitrogen [Mass/Vol] 13 mg/dL 7 - 21 mg/dL [facility] LIPID PANEL, NONFASTINGon Cholesterol [Mass/Vol] 239 mg/dL High <200 mg/dL Cl [facility] HDL Cholesterol, Nonfasting 52 mg/dL >39 mg/dL [facility] LDL Cholesterol, Nonfasting 140 mg/dL High <100 mg/dL [facility] LDL/HDL Ratio, Nonfasting 2.69 mg/dL High <2.54 mg/dL [facility] Non HDL Cholesterol, Nonfasting 187 mg/dL High <130 mg/dL [facility] Total Chol/HDL Ratio, Nonfasting 4.60 mg/dL <5.10 mg/dL [facility] Triglycerides, Nonfasting 233 mg/dL High <150 mg/dL [facility] VLDL Cholesterol, Nonfasting 47 mg/dL High <30 mg/dL [facility] TSH BLDon 12-12-2021 TSH Qn 2.980 m[IU]/L 0.270 - 4.200 mIU/L [facility] Vital Signs Date Time Vital Sign Value Performing Clinician Facility 02-14-2024 14:31-0400 Blood Pressure Cuff Size ANNELIESE Brass Monkey [facility] 02-14-2024 14:31-0400 Blood Pressure Location ANNELIESE Brass Monkey [facility] 02-14-2024 14:31-0400 Blood Pressure Method ANNELIESE Brass Monkey [address] [place] [address] 02-14-2024 14:31-0400 Body temperature 98.24 [degF] ANNELIESE Brass Monkey [facility] 02-14-2024 14:31-0400 Diastolic Blood Pressure Non-Invasive 55 mm[Hg] ANNELIESE Brass Monkey [facility] 02-14-2024 14:31-0400 Heart rate 83 /min ANNELIESE Brass Monkey [facility] 02-14-2024 14:31-0400 Reason For Taking VItal Signs ANNELIESE Brass Monkey [facility] 02-14-2024 14:31-0400 Respiratory rate 20 /min ANNELIESE Brass Monkey [facility] 02-14-2024 14:31-0400 Systolic Blood Pressure Non-Invasive 120 mm[Hg] ANNELIESE Brass Monkey [facility] 02-14-2024 07:21-0400 Blood Pressure Cuff Size ANNELIESE PLUNK DO [facility] 02-14-2024 07:21-0400 Blood Pressure Location ANNELIESE [employer] DO [facility] 02-14-2024 07:21-0400 Blood Pressure Method ANNELIESE PLNekst [facility] 02-14-2024 07:21-0400 Body temperature 97.34 [degF] ANNELIESE [employer] DO [address] [place] [address] 02-14-2024 07:21-0400 Diastolic Blood Pressure Non-Invasive 42 mm[Hg] ANNELIESE PLNekst [facility] 02-14-2024 07:21-0400 Heart rate 64 /min ANNELIESE [employer] [address] [place] [address] 02-14-2024 07:21-0400 Reason For Taking VItal Signs ANNELIESE [employer] [address] [place] [address] 02-14-2024 07:21-0400 Respiratory rate 20 /min ANNELIESE PLNekst [address] [place] [address] 02-14-2024 07:21-0400 Systolic Blood Pressure Non-Invasive 111 mm[Hg] ANNELIESE PLNekst [address] [place] [address] 02-13-2024 21:27-0400 Body temperature 98.42 [degF] ANNELIESE PLUNK DO [address] [place] [address] 02-13-2024 21:27-0400 Diastolic Blood Pressure Non-Invasive 47 mm[Hg] ANNELIESE PLNekst [address] [place] [address] 02-13-2024 21:27-0400 Heart rate 74 /min ANNELIESE PLNekst [address] [place] [address] 02-13-2024 21:27-0400 Reason For Taking VItal Signs ANNELIESE [employer] [address] [place] [address] 02-13-2024 21:27-0400 Respiratory rate 20 /min ANNELIESE PLUNK DO [facility] 02-13-2024 21:27-0400 Systolic Blood Pressure Non-Invasive 120 mm[Hg] ANNELIESE PLUNK DO [facility] 02-13-2024 14:50-0400 Blood Pressure Cuff Size ANNELIESE PLUNK DO [address] [place] [address] 02-13-2024 14:50-0400 Blood Pressure Location ANNELIESE PLUNK DO [address] [place] [address] 02-13-2024 14:50-0400 Blood Pressure Method ANNELIESE PLUNK DO [address] [place] [address] 02-08-2024 22:20-0400 Heart rate 82 /min ANNELIESE PLUNK DO [address] [place] [address] 02-07-2024 22:08-0400 Heart rate 70 /min ANNELIESE PLUNK DO [address] [place] [address] 02-07-2024 14:57-0400 Heart rate 70 /min ANNELIESE PLUNK DO [address] [place] [address] 02-05-2024 07:36-0400 Heart rate 65 /min ANNELIESE PLUNK DO [address] [place] [address] 02-05-2024 02:51-0400 Body height 152.4 cm ANNELIESE PLUNK DO [address] [place] [address] 02-05-2024 02:51-0400 Body weight 76.8 kg ANNELIESE PLUNK DO [address] [place] [address] 02-05-2024 02:51-0400 Body weight 33.07 kg/m2 ANNELIESE PLUNK DO [address] [place] [address] 02-05-2024 02:10-0400 Body height 152.4 cm ANNELIESE PLUNK DO [address] [place] [address] 02-05-2024 02:10-0400 Body weight 76.8 kg ANNELIESE PLUNK DO [address] [place] [address] 02-05-2024 02:10-0400 Body weight 33.07 kg/m2 ANNELIESE PLUNK DO [facility] 02-05-2024 01:51-0400 Heart rate 66 /min ANNELIESE SAHNIUNK DO [facility] 02-05-2024 01:51-0400 Mean blood pressure 79 mm[Hg] ANNELIESE CHAIREZ DO [facility] 02-04-2024 23:33-0400 Body temperature 98.42 [degF] STEFANOCOLTON BUTTNEN [employer] ATTENDANT-PARATRANSIT DRIVER [facility] 02-04-2024 23:33-0400 Diastolic Blood Pressure Non-Invasive 54 mm[Hg] STEFANO FILOMENAELGIN [employer] ATTENDANT-PARATRANSIT DRIVER [facility] 02-04-2024 23:33-0400 Heart rate 63 /min STEFANO FILOMENAELGIN [employer] ATTENDANT-PARATRANSIT DRIVER [facility] 02-04-2024 23:33-0400 Respiratory rate 16 /min STEFANOCOLTON BUTTELGIN [employer]OWDER RO[employer] ATTENDANT-PARATRANSIT DRIVER [facility] 02-04-2024 23:33-0400 Systolic Blood Pressure Non-Invasive 121 mm[Hg] STEFANO FILOMENANEN [employer]DER RO[employer] ATTENDANT-PARATRANSIT DRIVER [facility] 02-04-2024 20:11-0400 Body temperature 98.24 [degF] STEFANO FILOMENAELGIN [employer] RO[employer] ATTENDANT-PARATRANSIT DRIVER [facility] 02-04-2024 20:11-0400 Diastolic Blood Pressure Non-Invasive 67 mm[Hg] STEFANO FILOMENAELGIN [employer] ATTENDANT-PARATRANSIT DRIVER [facility] 02-04-2024 20:11-0400 Heart rate 77 /min STEFANO FILOMENAELGIN [employer] ATTENDANT-PARATRANSIT DRIVER [facility] 02-04-2024 20:11-0400 Respiratory rate 16 /min STEFANOCOLTON GRAHAM [employer]DER RO[employer] ATTENDANT-PARATRANSIT DRIVER [facility] 02-04-2024 20:11-0400 Systolic Blood Pressure Non-Invasive 94 mm[Hg] STEFANO GRAHAM [employer] ATTENDANT-PARATRANSIT DRIVER [facility] 02-04-2024 15:40-0400 Body temperature 98.06 [degF] STEFANO GRAHAM [employer] ATTENDANT-PARATRANSIT DRIVER [facility] 02-04-2024 15:40-0400 Diastolic Blood Pressure Non-Invasive 61 mm[Hg] STEFANO CHRISDayne POWDER ROOM ATTENDANT-PARATRANSIT DRIVER [facility] 02-04-2024 15:40-0400 Heart rate 88 /min STEFANO CHRISDayne [employer]DER RO[employer] ATTENDANT-PARATRANSIT DRIVER [facility] 02-04-2024 15:40-0400 Respiratory rate 16 /min STEFANO GRAHAM [employer] ATTENDANT-PARATRANSIT DRIVER [facility] 02-04-2024 15:40-0400 Systolic Blood Pressure Non-Invasive 127 mm[Hg] STEFANO GRAHAM [employer] ATTENDANT-PARATRANSIT DRIVER [facility] 02-04-2024 09:24-0400 Blood Pressure Cuff Size STEFANO CHRISDayne [employer]OWDER RO[employer] ATTENDANT-PARATRANSIT DRIVER [facility] 02-04-2024 09:24-0400 Blood Pressure Location STEFANO GRAHAM [employer] ATTENDANT-PARATRANSIT DRIVER [facility] 02-04-2024 09:24-0400 Blood Pressure Method STEFANO CHRISDayne POWDER RO[employer] ATTENDANT-PARATRANSIT DRIVER [facility] 02-04-2024 07:45-0400 Blood Pressure Cuff Size STEFANO CHRISDayne POWDER RO[employer] ATTENDANT-PARATRANSIT DRIVER [facility] 02-04-2024 07:45-0400 Blood Pressure Location STEFANO CHRISN [employer] RO[employer] ATTENDANT-PARATRANSIT DRIVER [facility] 02-04-2024 07:45-0400 Blood Pressure Method STEFANO GRAHAM [employer] ATTENDANT-PARATRANSIT DRIVER [facility] 02-03-2024 03:15-0400 Heart rate 66 /min STEFANO CHRISN [employer] ATTENDANT-PARATRANSIT DRIVER [facility] 02-02-2024 23:09-0400 Heart rate 65 /min STEFANO CHRISN [employer] RO[employer] ATTENDANT-PARATRANSIT DRIVER [facility] 02-02-2024 18:45-0400 Heart rate 82 /min STEFANOCOLTON CHRISN [employer]OWDER RO[employer] ATTENDANT-PARATRANSIT DRIVER [facility] 02-01-2024 12:41-0400 Body height 152.4 cm STEFANO CHRISN [employer]DER RO[employer] ATTENDANT-PARATRANSIT DRIVER [facility] 02-01-2024 12:41-0400 Body weight 76.2 kg STEFANOCOLTON CHRISN [employer]OWDER RO[employer] ATTENDANT-PARATRANSIT DRIVER [facility] 02-01-2024 12:41-0400 Body weight 32.81 kg/m2 STEFANOCOLTON CHRISN [employer]DER RO[employer] ATTENDANT-PARATRANSIT DRIVER [facility] 02-01-2024 12:23-0400 Body height 152.4 cm STEFANO CHRISN [employer]DER RO[employer] ATTENDANT-PARATRANSIT DRIVER [facility] 02-01-2024 12:23-0400 Body weight 76.2 kg STEFANOCOLTON CHRISN [employer]OWDER RO[employer] ATTENDANT-PARATRANSIT DRIVER [facility] 02-01-2024 12:23-0400 Body weight 32.81 kg/m2 STEFANOCOLTON CHRISN [employer]DER RO[employer] ATTENDANT-PARATRANSIT DRIVER [facility] 02-01-2024 07:01-0400 Body temperature 97.7 [degF] USMAN CHILDS MD FACP [facility] 02-01-2024 07:01-0400 Diastolic Blood Pressure Non-Invasive 60 mm[Hg] USMAN CHILDS MD FACP [facility] 02-01-2024 07:01-0400 Heart rate 82 /min USMAN CHILDS MD FACP [facility] 02-01-2024 07:01-0400 Respiratory rate 20 /min USMAN CHILDS MD FACP [facility] 02-01-2024 07:01-0400 Systolic Blood Pressure Non-Invasive 117 mm[Hg] USMAN CHILDS MD FACP [facility] 01-31-2024 20:07-0400 Body temperature 97.88 [degF] USMAN CHILDS MD FACP [facility] 01-31-2024 20:07-0400 Diastolic Blood Pressure Non-Invasive 61 mm[Hg] USMAN CHILDS MD FACP [facility] 01-31-2024 20:07-0400 Heart rate 85 /min USMAN CHILDS MD FACP [facility] 01-31-2024 20:07-0400 Respiratory rate 20 /min USMAN CHILDS MD FACP [facility] 01-31-2024 20:07-0400 Systolic Blood Pressure Non-Invasive 103 mm[Hg] USMAN CHILDS MD FACP [facility] 01-31-2024 11:05-0400 Heart rate 85 /min USMAN CHILDS MD FACP [facility] 01-31-2024 08:30-0400 Body temperature 98.6 [degF] USMAN CHILDS MD FACP [facility] 01-31-2024 07:29-0400 Diastolic Blood Pressure Non-Invasive 51 mm[Hg] USMAN CHILDS MD FACP [facility] 01-31-2024 07:29-0400 Respiratory rate 20 /min USMAN CHILDS MD FACP [facility] 01-31-2024 07:29-0400 Systolic Blood Pressure Non-Invasive 111 mm[Hg] USMAN CHILDS MD FACP [facility] 01-30-2024 07:54-0400 Heart rate 98 /min USMAN CHILDS MD FACP [facility] 01-29-2024 19:38-0400 Reason For Taking VItal Signs USMAN CHILDS MD FACP [facility] 01-29-2024 13:15-0400 Heart rate 94 /min USMAN CHILDS MD FACP [facility] 01-29-2024 09:19-0400 Heart rate 67 /min USMAN CHILDS MD FACP [facility] 01-28-2024 19:14-0400 Reason For Taking VItal Signs USMAN CHILDS MD FACP [facility] 01-27-2024 19:35-0400 Heart rate 78 /min USMAN CHILDS MD FACP [facility] 01-26-2024 20:05-0400 Heart rate 84 /min USMAN CHILDS MD FACP [facility] 01-25-2024 19:58-0400 Heart rate 78 /min USMAN CHILDS MD FACP [facility] 01-22-2024 17:48-0400 Body height 152.4 cm USMAN CHILDS MD FACP [facility] 01-22-2024 17:48-0400 Body weight 76.2 kg USMAN CHILDS MD FACP [facility] 01-22-2024 17:48-0400 Body weight 32.81 kg/m2 USMAN CHILDS MD FACP [facility] 12-13-2023 12:48-0400 Body mass index (BMI) [Ratio] 33.45 kg/m2 Ester Suppan POWDER ROOM ATTENDANT.MONORAIL HELPER Work Phone: [facility] 12-13-2023 12:48-0400 Body weight 78.29 kg Ester Suppan POWDER ROOM ATTENDANT.MONORAIL HELPER Work Phone: [facility] 12-13-2023 12:48-0400 Diastolic blood pressure 66 mm[Hg] Ester Suppan POWDER ROOM ATTENDANT.MONORAIL HELPER Work Phone: [facility] 12-13-2023 12:48-0400 Heart rate 60 /min Ester Suppan POWDER ROOM ATTENDANT.MONORAIL HELPER Work Phone: [facility] 12-13-2023 12:48-0400 Respiratory rate 20 /min Ester Suppan POWDER ROOM ATTENDANT.MONORAIL HELPER Work Phone: [facility] 12-13-2023 12:48-0400 SaO2% (BldA) [Mass fraction] 98 % Ester Suppan POWDER ROOM ATTENDANT.MONORAIL HELPER Work Phone: [facility] 12-13-2023 12:48-0400 Systolic blood pressure 100 mm[Hg] Ester Suppan POWDER ROOM ATTENDANT.MONORAIL HELPER Work Phone: [facility] 12-11-2023 07:56-0400 Diastolic Blood Pressure Non-Invasive 64 mm[Hg] USMAN CHILDS MD FACP [facility] 12-11-2023 07:56-0400 Systolic Blood Pressure Non-Invasive 120 mm[Hg] USMAN CHILDS MD FACP [facility] 12-11-2023 06:47-0400 Body temperature 97.88 [degF] USMAN CHILDS MD FACP [facility] 12-11-2023 06:47-0400 Diastolic Blood Pressure Non-Invasive 60 mm[Hg] USMAN CHILDS MD FACP [facility] 12-11-2023 06:47-0400 Heart rate 87 /min USMAN CHILDS MD FACP [facility] 12-11-2023 06:47-0400 Reason For Taking VItal Signs USMAN CHILDS MD FACP [facility] 12-11-2023 06:47-0400 Respiratory rate 18 /min USMAN CHILDS MD FACP [facility] 12-11-2023 06:47-0400 Systolic Blood Pressure Non-Invasive 117 mm[Hg] USMAN CHILDS MD FACP [facility] 12-10-2023 19:44-0400 Body temperature 97.7 [degF] USMAN CHILDS MD FACP [facility] 12-10-2023 19:44-0400 Diastolic Blood Pressure Non-Invasive 57 mm[Hg] USMAN CHILDS MD FACP [facility] 12-10-2023 19:44-0400 Heart rate 85 /min USMAN CHILDS MD FACP [facility] 12-10-2023 19:44-0400 Reason For Taking VItal Signs USMAN CHILDS MD FACP [facility] 12-10-2023 19:44-0400 Respiratory rate 18 /min USMAN CHILDS MD FACP [facility] 12-10-2023 19:44-0400 Systolic Blood Pressure Non-Invasive 110 mm[Hg] USMAN CHILDS MD FACP [facility] 12-10-2023 06:10-0400 Body temperature 97.7 [degF] USMAN CHILDS MD FACP [facility] 12-10-2023 06:10-0400 Heart rate 84 /min USMAN CHILDS MD FACP [facility] 12-10-2023 06:10-0400 Reason For Taking VItal Signs USMAN CHILDS MD FACP [facility] 12-10-2023 06:10-0400 Respiratory rate 18 /min USMAN CHILDS MD FACP [facility] 12-09-2023 20:06-0400 Heart rate 84 /min USMAN CHILDS MD FACP [facility] 12-07-2023 19:37-0400 Heart rate 78 /min USMAN CHILDS MD FACP [facility] 12-06-2023 19:42-0400 Heart rate 84 /min USMAN CHILDS MD FACP [facility] 12-06-2023 11:25-0400 Body weight 79.09 kg USMAN CHILDS MD FACP [facility] 12-06-2023 07:00-0400 Heart rate 83 /min USMAN CHILDS MD FACP [facility] 12-04-2023 20:19-0400 Heart rate 92 /min USMAN CHILDS MD FACP [facility] 11-30-2023 06:24-0400 Body weight 80.6 kg USMAN CHILDS MD FACP [facility] 11-26-2023 21:19-0400 Body height 152.4 cm USMAN CHILDS MD FACP [facility] 11-26-2023 21:19-0400 Body weight 80.6 kg USMAN CHILDS MD FACP [facility] 11-26-2023 21:19-0400 Body weight 34.7 kg/m2 USMAN CHILDS MD FACP [facility] 11-26-2023 20:37-0400 Body temperature 98.8 [degF] Dr. Carl Encarnacion Work Phone: [facility] 11-26-2023 20:37-0400 Diastolic blood pressure 72 mm[Hg] Dr. Carl Encarnacion Work Phone: [facility] 11-26-2023 20:37-0400 Heart rate 115 /min Dr. Carl Encarnacion Work Phone: [facility] 11-26-2023 20:37-0400 Respiratory rate 18 /min Dr. Carl Encarnacion Work Phone: [facility] 11-26-2023 20:37-0400 SaO2% (BldA) [Mass fraction] 97 % Dr. Carl Encarnacion Work Phone: [facility] 11-26-2023 20:37-0400 Systolic blood pressure 139 mm[Hg] Dr. Carl Encarnacion Work Phone: [facility] 11-23-2023 12:51-0400 Body height 152.[address] Carl Encarnacion Work Phone: [facility] 11-23-2023 12:51-0400 Body mass index (BMI) [Ratio] 34.3 kg/m2 Dr. Carl Encarnacion Work Phone: [facility] 11-23-2023 12:51-0400 Body weight 79.[address] Carl Encarnacion Work Phone: [facility] 11-23-2023 11:58-0400 Diastolic blood pressure 102 mm[Hg] [facility] 11-23-2023 11:58-0400 Heart rate 96 /min [facility] 11-23-2023 11:58-0400 Respiratory rate 20 /min [facility] 11-23-2023 11:58-0400 SaO2% (BldA) [Mass fraction] 95 % [facility] 11-23-2023 11:58-0400 Systolic blood pressure 120 mm[Hg] [facility] 11-23-2023 11:49-0400 Body temperature 98 [degF] [facility] 11-23-2023 08:07-0400 Body height 152.4 cm [facility] 11-23-2023 08:07-0400 Body mass index (BMI) [Ratio] 36.3 kg/m2 [facility] 11-23-2023 08:07-0400 Body weight 84.3 kg [facility] 07-26-2023 11:33-0500 Body temperature 98.1 [degF] Prosper Amador Work Phone: [facility] 07-26-2023 11:33-0500 Body weight 73.94 kg Prosperlove Amador Work Phone: [facility] 07-26-2023 11:33-0500 Diastolic blood pressure 69 mm[Hg] Prosper Amador Work Phone: [facility] 07-26-2023 11:33-0500 Heart rate 106 /min Prosper Amador Work Phone: [facility] 07-26-2023 11:33-0500 SaO2% (BldA) [Mass fraction] 98 % Prosper Amador Work Phone: [facility] 07-26-2023 11:33-0500 Systolic blood pressure 142 mm[Hg] Prosperlove Amador Work Phone: [facility] 07-07-2023 08:34-0500 Body height 153 cm Wilmar Masci DO Work Phone: [facility] 07-07-2023 08:34-0500 Body temperature 98.8 [degF] Wilmar Masci DO Work Phone: [facility] 07-07-2023 08:34-0500 Body weight 75.3 kg Wilmar Masci DO Work Phone: [facility] 07-07-2023 08:34-0500 Diastolic blood pressure 84 mm[Hg] Wilmar Masci DO Work Phone: [facility] 07-07-2023 08:34-0500 Heart rate 92 /min Wilmar Masci DO Work Phone: [facility] 07-07-2023 08:34-0500 SaO2% (BldA) [Mass fraction] 98 % Wilmar Masci DO Work Phone: [facility] 07-07-2023 08:34-0500 Systolic blood pressure 150 mm[Hg] Wilmar Masci DO Work Phone: [facility] 06-02-2023 13:59-0400 Body temperature 97.9 [degF] Wilmar Masci DO Work Phone: [facility] 06-02-2023 13:59-0400 Body weight 73.48 kg Wilmar Masci DO Work Phone: [facility] 06-02-2023 13:59-0400 Diastolic blood pressure 71 mm[Hg] Wilmar Masci DO Work Phone: [facility] 06-02-2023 13:59-0400 Heart rate 96 /min Wilmar Masci DO Work Phone: [facility] 06-02-2023 13:59-0400 SaO2% (BldA) [Mass fraction] 97 % Wilmar Masci DO Work Phone: [facility] 06-02-2023 13:59-0400 Systolic blood pressure 121 mm[Hg] Wilmar Forbes DO Work Phone: [facility] 05-03-2023 15:18-0400 Body temperature 97.5 [degF] Eliot Castillo MD Work Phone: [facility] 05-03-2023 15:18-0400 Body weight 72.94 kg Eliot Castillo MD Work Phone: [facility] 05-03-2023 15:18-0400 Diastolic blood pressure 66 mm[Hg] Eliot Castillo MD Work Phone: [facility] 05-03-2023 15:18-0400 Heart rate 93 /min Eliot Castillo MD Work Phone: [facility] 05-03-2023 15:18-0400 Systolic blood pressure 144 mm[Hg] Eliot Castillo MD Work Phone: [facility] 04-06-2023 14:45-0400 Body height 156 cm [facility] 04-06-2023 14:45-0400 Body weight 72.58 kg [facility] 01-27-2023 10:22-0400 Body temperature 98.29 [degF] Kristen Eugene PA-C Work Phone: [facility] 01-27-2023 10:22-0400 Diastolic blood pressure 70 mm[Hg] Kristen Eugene PA-C Work Phone: [facility] 01-27-2023 10:22-0400 Heart rate 110 /min Kristen Eugene PA-C Work Phone: [facility] 01-27-2023 10:22-0400 Respiratory rate 16 /min Kristen Eugene PA-C Work Phone: [facility] 01-27-2023 10:22-0400 Systolic blood pressure 110 mm[Hg] Kristen Eugene PA-C Work Phone: [facility] 01-12-2023 10:22-0400 Body height 160.02 cm [facility] 01-12-2023 10:22-0400 Body mass index (BMI) [Ratio] 31.1 kg/m2 [facility] 01-12-2023 10:22-0400 Body temperature 97.6 [degF] [facility] 01-12-2023 10:22-0400 Body weight 79.78 kg [facility] 01-12-2023 10:22-0400 Diastolic blood pressure 83 mm[Hg] [facility] 01-12-2023 10:22-0400 Heart rate 92 /min [facility] 01-12-2023 10:22-0400 Respiratory rate 16 /min [facility] 01-12-2023 10:22-0400 SaO2% (BldA) [Mass fraction] 100 % [facility] 01-12-2023 10:22-0400 Systolic blood pressure 146 mm[Hg] [facility] 07-19-2022 11:20-0500 Body temperature 98.01 [degF] Isabel Older POWDER ROOM ATTENDANT.PARATRANSIT DRIVER Work Phone: [facility] 07-19-2022 11:20-0500 Body weight 75.75 kg Isabel Older POWDER ROOM ATTENDANT.PARATRANSIT DRIVER Work Phone: [facility] 07-19-2022 11:20-0500 Diastolic blood pressure 82 mm[Hg] Isabel Older POWDER ROOM ATTENDANT.PARATRANSIT DRIVER Work Phone: [facility] 07-19-2022 11:20-0500 Heart rate 118 /min Isabel Older POWDER ROOM ATTENDANT.PARATRANSIT DRIVER Work Phone: [facility] 07-19-2022 11:20-0500 Respiratory rate 20 /min Isabel Older POWDER ROOM ATTENDANT.PARATRANSIT DRIVER Work Phone: [facility] 07-19-2022 11:20-0500 SaO2% (BldA) [Mass fraction] 95 % Isabel Older POWDER ROOM ATTENDANT.PARATRANSIT DRIVER Work Phone: [facility] 07-19-2022 11:20-0500 Systolic blood pressure 140 mm[Hg] Isabel Older POWDER ROOM ATTENDANT.PARATRANSIT DRIVER Work Phone: [facility] 06-26-2022 11:08-0500 Diastolic blood pressure 72 mm[Hg] Carl Encarnacion MD Work Phone: [facility] 06-26-2022 11:08-0500 Systolic blood pressure 130 mm[Hg] Carl Encarnacion MD Work Phone: [facility] 06-26-2022 10:45-0500 Body weight 76.66 kg Carl Encarnacion MD Work Phone: [facility] 06-26-2022 10:45-0500 Heart rate 90 /min Carl Encarnacion MD Work Phone: [facility] 06-26-2022 10:45-0500 Respiratory rate 20 /min Carl Encarnacion MD Work Phone: [facility] 12-12-2021 12:20-0400 Diastolic blood pressure 94 mm[Hg] Carl Encarnacion MD Work Phone: [facility] 12-12-2021 12:20-0400 Systolic blood pressure 182 mm[Hg] Carl Encarnacion MD Work Phone: [facility] 12-12-2021 11:56-0400 Body weight 75.3 kg Carl Encarnacion MD Work Phone: [facility] 12-12-2021 11:56-0400 Heart rate 82 /min Calr Encarnacion MD Work Phone: [facility] 12-12-2021 11:56-0400 Respiratory rate 16 /min Carl Encarnacion MD Work Phone: [facility] Encounters Encounter Date Encounter Type Care Provider Facility Start: 12-11-2024 End: 12-11-2024 ambulatory Lasha Pro OLS Facility:[facility] Start: 12-05-2024 End: 12-05-2024 ambulatory Savi Tavares FOOD INSPECTOR Facility:[facility] Start: 12-04-2024 End: 12-05-2024 ambulatory Efannmarie Graye OLS Facility:[facility] Start: 11-22-2024 End: 11-22-2024 ambulatory Savi Tavares FOOD INSPECTOR Facility:[facility] Start: 11-17-2024 End: 11-17-2024 ambulatory Savi Tavares NP Facility:[facility] Start: 11-07-2024 End: 11-07-2024 ambulatory Lasha Pro Facility:[facility] Start: 11-02-2024 End: 11-02-[address] Carl Encarnacion MD Work Phone: [facility] Work Phone: Start: 11-02-2024 End: 11-02-2024 Departed Referred Lasha Pro MD [facility] Start: 11-02-2024 Registered Referred Lasha Pro MD [facility] Start: 11-02-2024 End: 11-02-2024 ambulatory Lasha VASQUEZ Facility:[facility] Start: 10-30-2024 End: 10-30-[address] Carl Encarnacion MD Work Phone: [facility] Work Phone: Start: 10-30-2024 End: 10-30-2024 Departed Referred Lasha Pro MD [facility] Start: 10-30-2024 Registered Referred Lasha Pro MD [facility] Start: 10-30-2024 End: 10-30-2024 ambulatory Lasah Pro OLS Facility:[facility] Start: 10-19-2024 End: 10-19-2024 ambulatory Jim SANTOS [facility] Start: 10-19-2024 End: 10-19-2024 Patient encounter procedure Jim SANTOS -[facility] Work Phone: Start: 10-16-2024 End: 10-16-[address] Carl Encarnacion MD Work Phone: [facility] Work Phone: Start: 10-16-2024 End: 10-16-2024 Departed Referred Lasha Pro MD -[facility] Start: 10-16-2024 End: 10-16-2024 ambulatory Efannmarie Pro OLS Facility:[facility] Start: 09-27-2024 Registered Referred [facility] Start: 09-27-2024 End: 09-27-2024 ambulatory Savi Tavares FOOD INSPECTOR Facility:[facility] Start: 09-27-2024 End: 09-27-2024 Patient encounter procedure aSvi Tavares FOOD INSPECTOR-C -[facility] Work Phone: Start: 09-25-2024 ambulatory Lasha Pro OLS Fa cility:[facility] Start: 09-25-2024 Registered Referred Lasha Pro MD [facility] Start: 09-18-2024 ambulatory Efewlesley Pro OLS Fa cility:[facility] Start: 09-18-2024 Registered Referred Lasha Pro MD [facility] Start: 09-14-2024 ambulatory Efewlesley Pro OLS Fa cility:[facility] Start: 09-14-2024 Registered Referred [facility] Start: 09-12-2024 End: 09-12-2024 ambulatory Carl Encarnacion Facility[facility] Start: 09-12-2024 End: 09-12-[address] Lasha Pro MD -[facility] Work Phone: Start: 09-03-2024 ambulatory Efannmarie Pro OLS Fa cility:[facility] Start: 09-03-2024 Registered Referred [facility] Start: 08-15-[address] ZACKARY WALLER MD Facility:[facility] Start: 08-11-2024 End: 08-11-2024 ambulatory Savi Tavares NP Facility[facility] Start: 08-11-2024 End: 08-11-2024 Patient encounter procedure Savi Tavares FOOD INSPECTOR-Artis -[facility] Work Phone: Start: 08-07-2024 ambulatory Efannmarie Pro OLS Fa cility:[facility] Start: 08-07-2024 Registered Referred [facility] Start: 07-11-2024 End: 07-11-2024 ambulatory Efcachorroongbe Olehelene Facility:[facility] Start: 06-22-2024 End: 06-22-2024 ambulatory Jim SANTOS Facility:[facility] Start: 06-19-2024 ambulatory Efewongbe Oleghe OLS Fa cility:[facility] Start: 05-22-2024 End: 05-22-2024 ambulatory Efewongbe Oleghe OLS Facility:[facility] Start: 05-16-2024 End: 05-16-2024 ambulatory Efewongbe Oleghe Facility:[facility] Start: 05-15-2024 ambulatory Efewongbe Oleghe OLS Fa cility:[facility] Start: 05-08-2024 ambulatory Efewcross hillbe Oleghe OLS Fa cility:[facility] Start: 05-01-2024 End: 05-01-2024 ambulatory Efewongbe Marinae OLS Facility:[facility] Start: 04-24-2024 ambulatory Efewongbe Oleghe OLS Fa cility:[facility] Start: 04-18-2024 End: 04-18-2024 [facility] Start: 04-17-2024 ambulatory Efewongbe Oleghe OLS Fa cility:[facility] Start: 04-11-2024 ambulatory Efewongbe Oleghe OLS Fa cility:[facility] Start: 04-03-2024 ambulatory Efewcross hillbe Oleghe OLS Fa cility:[facility] Start: 03-27-2024 ambulatory Efewongbe Oleghe OLS Fa cility:[facility] Start: 03-20-2024 End: 03-20-2024 ambulatory Sujatamalina Baconcarmen Facility:[facility] Start: 03-20-2024 End: 03-20-2024 ambulatory Efewongbe Oleghe OLS Facility:[facility] Start: 03-13-2024 ambulatory Efewongbe Oleghe OLS Fa cility:[facility] Start: 03-10-2024 End: 03-10-2024 [facility]ulatory [facility] Start: 03-06-2024 ambulatory Efewongbe Oleghe OLS Fa cility:[facility] Start: 02-28-2024 ambulatory Tenzincross hillphilip VASQUEZ Fa cility:[facility] Start: 02-23-2024 ambulatory Lasha VASQUEZ Fa cility:[facility] Start: 02-21-2024 End: 02-21-2024 ambulatory Savi Tavares NP Facility:[facility] Start: 02-15-2024 End: 02-15-2024 Refill Carl Encarnacion MD Work Phone: [facility] Comment on above: Refill Request Start: 02-05-2024 End: 02-14-2024 Evaluation and management of inpatient ANNELIESE CHAIREZ DO [facility] Start: 02-01-2024 End: 02-05-2024 Evaluation and management of inpatient STEFANO GRAHAM POWDER ROOM ATTENDANT-PARATRANSIT DRIVER [facility] Start: 01-25-2024 ambulatory Carl cassidy MD Work Phone: [facility] Start: 01-22-2024 End: 02-01-2024 Evaluation and management of inpatient USMAN CHILDS MD FACP [facility] Start: 01-21-2024 ambulatory Radha Pena NP Facili ty:[facility] Start: 01-20-2024 ambulatory Hector Monica Facility[facility] Start: 01-20-2024 End: 01-22-2024 Evaluation and management of inpatient Marilee Avitia Facility:[facility] Start: 01-20-2024 Chart abstracting Carl barragan MD Work Phone: [facility] Comment on above: Outside Heart Cath Start: 01-13-2024 End: 01-13-2024 ambulatory CARL ENCARNACION Facility:[facility] Start: 01-11-2024 Telephone encounter Carl Encarnacion MD Work Phone: [facility] Comment on above: Patient Update Start: 01-07-2024 Telephone encounter Esterkat Bejarano APRN.MONORAIL HELPER Work Phone: [facility] Comment on above: Medication Problem Start: 01-06-2024 Telephone encounter Ester Bejarano APRN.MONORAIL HELPER Work Phone: [facility] Comment on above: Results OT Update Start: 01-04-2024 Refill Carl cassidy MD Work Phone: [facility] Comment on above: Refill Request Start: 12-25-2023 Home visit Carl cassidy MD Work Phone: [facility] Comment on above: Essential hypertensi on, malignant (Primary Dx) Start: 12-21-2023 Chart abstracting Carl barragan MD Work Phone: [facility] Comment on above: Ext / Discharge Summ edwina Start: 12-16-2023 Telephone encounter Ester Bejarano APRN.MONORAIL HELPER Work Phone: [facility] Start: 12-15-2023 Telephone encounter Carl Encarnacion MD Work Phone: [facility] Start: 12-14-2023 Telephone encounter Carl Encarnacion MD Work Phone: [facility] Comment on above: Patient Update from [facility] Start: 12-14-2023 End: 12-14-2023 ambulatory CARL ENCARNACION Facility:[facility] Start: 12-13-2023 Telephone encounter Carl Encarnacion MD Work Phone: [facility] Comment on above: [facility]-ve rbal ordes requeted Start: 12-13-2023 End: 12-13-2023 Office outpatient visit 15 minutes Ester Bejarano APRN.MONORAIL HELPER Work Phone: [facility] Comment on above: Recurrent UTI (urina ry tract infection) (Primary Dx); Essential hypertension; Malignant neoplasm of ovary, unspecified laterality (HCC); Aortic stenosis, moderate Start: 12-13-2023 End: 01-11-2024 ambulatory CARL ENCARNACION Facility:[facility] Start: 12-06-2023 Refill Carl cassidy MD Work Phone: [facility] Comment on above: Refill Request Start: 11-26-2023 End: 12-11-2023 Evaluation and management of inpatient USMAN CHILDS MD FAC [facility] Start: 11-26-2023 Non-patient / Non-visit Dr. Deandre Encarnacion Work Phone: [facility] Work Phone: Start: 11-25-2023 Non-patient / Non-visit Dr. Deandre Encarnacion Work Phone: [facility] Work Phone: Start: 11-24-2023 Chart abstracting Keily Rico [facility] Comment on above: Hospital Admission Start: 11-24-2023 Non-patient / Non-visit Dr. Deandre Encarnacion Work Phone: [facility] Work Phone: Start: 11-23-2023 End: 11-26-2023 [facility] Work [facility]: Start: 10-07-2023 Refill Carl cassidy MD Work Phone: [facility] Comment on above: Refill Request Start: 09-16-[address] ZACKARY WALLER MD Facility:[facility] Start: 09-09-2023 End: 09-09-[address] ZACKARY WALLER MD Facility:[facility] Start: 09-09-2023 End: 09-09-[address] ZACKARY WALLER MD [facility] Start: 08-18-2023 End: 08-18-2023 ambulatory CARL ENCARNACION Facility:[facility] Start: 07-26-2023 End: 07-26-2023 Patient encounter procedure Prosper Amador Work Phone: [facility] Start: 07-26-2023 End: 07-26-2023 ambulatory Prosper [place] Work Phone: Hematology/Oncology Comment on above: 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) Start: 07-16-2023 Telephone encounter Wilmar perales DO Work Phone: Hematology/Oncology Start: 07-14-2023 End: 07-14-2023 ambulatory CARL ENCARNACION Facility:[facility] Start: 07-13-2023 Orders Only Wilmar Davies Work Phone: Hematology/Oncology Comment on above: 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) Start: 07-12-2023 Telephone encounter Carl Encarnacion MD Work Phone: [facility] Comment on above: Medication Problem Start: 07-07-2023 End: 07-07-2023 Patient encounter procedure Wilmar Forbes DO Work Phone: [facility] Start: 07-07-2023 End: 07-07-2023 ambulatory Wilmar Forbes DO Work Phone: Hematology/Oncology Comment on above: 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) Start: 06-17-2023 Telephone encounter Korin Mantilla RN He matology/Oncology Comment on above: Automotive Engineering Technician - O ther (Toxicity Check (Carboplatin)) Start: 06-11-2023 Telephone encounter Korin Eduardo matology/Oncology Comment on above: Automotive Engineering Technician - O ther (C1D1 Post Treatment Call (Carboplatin) ) Medication Problem Start: 06-10-2023 End: 06-10-2023 ambulatory CARL ENCARNACION Facility:[facility] Start: 06-07-2023 Refill Carl cassidy MD Work Phone: [facility] Comment on above: Refill Request Automotive Engineering Technician - O ther (Orders ) Start: 06-04-2023 End: 06-04-2023 snubber [facility] Work Phone: Hematology/Oncology Comment on above: Encounter for educat ion (Primary Dx) Start: 06-02-2023 End: 06-02-2023 ambulatory Wilmar Forbes DO Work Phone: Hematology/Oncology Comment on above: Ovarian cancer on ri ght (HCC) (Primary Dx) Start: 06-02-2023 End: 06-02-2023 Patient encounter procedure Wilmar Hernandez Leidy DO Work Phone: [facility] Start: 06-02-2023 Telephone encounter Korin Mantilla RN He matology/Oncology Comment on above: Automotive Engineering Technician - O ther (Introduction ) AVS 06/02/23, CHEMO START Start: 05-31-2023 Home visit Carl cassidy MD Work Phone: Family [facility] [place] Comment on above: 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 (Primary Dx) Start: 05-17-2023 End: 05-17-2023 ambulatory CARL ENCARNACION Facility:[facility] Start: 05-13-2023 Telephone encounter Carl Encarnacion MD Work Phone: Family [facility] [place] Comment on above: Nursing Plan of Care Start: 05-03-2023 End: 05-03-2023 ambulatory Eliot Castillo MD Work Phone: Gynecology Comment on above: Ovarian cancer on ri ght (HCC) (Primary Dx); Post-operative state Start: 05-03-2023 End: 05-03-2023 Patient encounter procedure Eliot Castillo MD Work Phone: [facility] Start: 05-03-2023 End: 05-03-2023 ambulatory CARL ENCARNACION Facility:[facility] Start: 05-01-2023 Refill Annmarie fair POWDER ROOM ATTENDANT.PARATRANSIT DRIVER Work Phone: [facility] [place] Comment on above: Refill Request Start: 04-09-2023 Telephone encounter Annmarie garcia APRN.PARATRANSIT DRIVER Work Phone: [facility] [place] Comment on above: home health calling Start: 04-07-2023 Encounter for other preprocedural examination ELIOT CASTILLO [facility] Start: 04-07-2023 End: 04-14-2023 Evaluation and management of inpatient ELIOT CASTILLO Facility:[facility] Start: 04-06-2023 End: 04-06-2023 Admission to establishment Pacc Main Virtual [facility] Start: 04-06-2023 Encounter for other preprocedural examination ELIOT CASTILLO [facility] Start: 04-06-2023 End: 04-06-2023 ambulatory Ousmane Jones APRN.ROGE CLEMONS Work Phone: Pre Anesthesia Comment on above: preop instructions Pre-op evaluation (P rimary Dx); Acquired hypothyroidism; Essential hypertension; Gastroesophageal reflux disease without esophagitis; History of pulmonary embolism; Aortic stenosis, moderate Start: 04-06-2023 E-mail encounter fro mary caregiver Ousmane Jones APRN.ROGE CLEMONS Work Phone: [facility] Start: 04-06-2023 End: 04-06-2023 Preprocedural examination done Ousmane Jones APRN.CNP, DNP Work Phone: [facility] Work Phone: Start: 04-06-2023 Telephone encounter Ousmane stone APRN.CNP, DNP Work Phone: Pre Anesthesia Start: 03-24-2023 Telephone encounter Dari moreno MD Work Phone: [facility] Comment on above: Appointment Patient Update Start: 03-23-2023 End: 03-23-2023 ambulatory CARL ENCARNACION Facility:[facility] Start: 03-22-2023 End: 03-22-2023 Preprocedural examination done Annmarie Mendoza APRN.PARATRANSIT DRIVER Work Phone: [facility] Work Phone: Start: 03-22-2023 Telephone encounter Tuyet Lorenz RN Gy necology Comment on above: Pre op instructions Results Start: 03-22-2023 End: 03-22-2023 Subsequent hospital visit by physician [facility] Comment on above: Ovarian mass [N83.8] Start: 03-16-2023 Telephone encounter Ely oshea MD Work Phone: OB/Gynecology Comment on above: Referral Information Start: 03-09-2023 End: 03-09-2023 ambulatory CARL ENCARNACION Facility:[facility] Start: 03-09-2023 End: 03-09-2023 ambulatory CARL ENCARNACION Facility:[facility] Start: 03-09-2023 End: 03-09-2023 Subsequent hospital visit by physician Mari [facility] (I-Stat) Work Phone: Cat Scan Comment on above: Pelvic mass [R19.00] Start: 03-02-2023 End: 03-02-2023 ambulatory [facility] Work Phone: Start: 03-02-2023 End: 03-02-2023 Patient encounter procedure [facility]-Laboratory, Specimen Work Phone: Start: 02-08-2023 Refill Carl cassidy MD Work Phone: [facility] Comment on above: Refill Request Start: 02-02-2023 End: 02-02-2023 ambulatory America Camejo PT [facility] Physical Therapy Comment on above: Sciatica, right side (Primary Dx); Falls, subsequent encounter Start: 02-02-2023 Telephone encounter Kristen brewer PA-C Work Phone: [facility] Comment on above: Results Start: 01-27-2023 End: 01-27-2023 Subsequent hospital visit by physician Manju [facility] Nickolas Work Phone: Radiology Comment on above: Sciatica, right side [M54.31] Start: 01-27-2023 End: 01-27-2023 ambulatory CARL ENCARNACION Facility:[facility] Start: 01-27-2023 End: 01-27-2023 Patient encounter procedure Kristen Eugene PA-C Work Phone: [facility] Comment on above: Sciatica, right side (Primary Dx); Fall, subsequent encounter Start: 01-25-2023 Telephone encounter Kristen brewer PA-C Work Phone: [facility] Comment on above: Results Start: 01-21-2023 Telephone encounter Carl Encarnacion MD Work Phone: [facility] [place] Comment on above: Results Start: 01-12-2023 End: 01-12-2023 Emergency department patient visit [facility]Emergency Department Start: 01-12-2023 End: 01-12-2023 Patient encounter procedure Barrera Daley APRN.PARATRANSIT DRIVER Work Phone: [facility] Comment on above: Severe back pain (Pr imary Dx); Fall, initial encounter Start: 11-06-2022 Refill Carl cassidy MD Work Phone: [facility] Comment on above: Refill Request Start: 09-10-2022 Refill Carl cassidy MD Work Phone: [facility] Comment on above: Refill Request Start: 07-20-2022 Telephone encounter Barrera greene APRN.PARATRANSIT DRIVER Work Phone: [facility] Comment on above: Results Start: 07-20-2022 End: 07-20-2022 Subsequent hospital visit by physician Xr [facility] Work Phone: Radiology Comment on above: Acute cough [R05.1] Start: 07-19-2022 End: 07-19-2022 Patient encounter procedure Isabel Roca APRN.PARATRANSIT DRIVER Work Phone: [facility] Comment on above: Acute cough (Primary Dx); Wheezing Start: 06-29-2022 Telephone encounter Carl Encarnacion MD Work Phone: [facility] Comment on above: Results Start: 06-26-2022 End: 06-26-2022 Patient encounter procedure Carl Encarnacion MD Work Phone: [facility] Comment on above: Essential hypertensi on (Primary Dx); Mixed hyperlipidemia; Gastroesophageal reflux disease without esophagitis; Acquired hypothyroidism; Aortic stenosis, moderate; Osteoarthritis of multiple joints, unspecified osteoarthritis type; Encounter for immunization; Advance directive discussed with patient Start: 06-10-2022 Refill Carl cassidy MD Work Phone: [address] [place] [address] Comment on above: Refill Request Start: 06-05-2022 Refill Carl cassidy MD Work Phone: Family [facility] [place] Comment on above: Refill Request Start: 05-25-2022 Telephone encounter Carl Encarnacion MD Work Phone: [facility] [place] Comment on above: patient refused test ing Start: 05-13-2022 Telephone encounter Carl Encarnacion MD Work Phone: [facility] [place] Comment on above: Orders Start: 05-01-2022 Telephone encounter Carl Encarnacion MD Work Phone: [facility] [place] Comment on above: returning oxygen (Re turning oxygen to [facility]AS[facility]) Start: 03-16-2022 Telephone encounter Carl Encarnacion MD Work Phone: [facility] [place] Comment on above: Patient Question Start: 03-13-2022 Refill Carl cassidy MD Work Phone: [facility] [place] Comment on above: Prescription Refills Start: 12-15-2021 Telephone encounter Carl Encarnacion MD Work Phone: [facility] [place] Comment on above: Results Start: 12-12-2021 End: 12-12-2021 Patient encounter procedure Carl Encarnacion MD Work Phone: [facility] [place] Comment on above: Essential hypertensi on (Primary Dx); Mixed hyperlipidemia; Acquired hypothyroidism; History of pulmonary embolism; Gastroesophageal reflux disease without esophagitis; Osteoarthritis of multiple joints, unspecified osteoarthritis type; Medication management Start: 11-28-2021 Refill Carl cassidy MD Work Phone: [facility] [place] Comment on above: Refill Request Start: 11-17-2021 Telephone encounter Carl Encarnacion MD Work Phone: [facility] [place] Comment on above: urine culture Start: 11-12-2021 Telephone encounter Carl Encarnacion MD Work Phone: [facility] [place] Comment on above: Results Start: 08-07-2021 Patient encounter procedure Carl Encarnacion MD Work Phone: [facility] Work Phone: Start: 06-19-2021 Patient encounter status [facility] Start: 02-05-2021 Patient encounter status Tenisha Encarnacion MD Work Phone: [facility] Work Phone: Procedures Date Procedure Procedure Detail Performing Clinician Start: 09-27-[address] Tenisha Encarnacion MD Work Phone: Start: 09-25-[address] Tenisha Encarnacion MD Work Phone: Start: 09-14-[address] Tenisha Encarnacion MD Work Phone: Start: 09-03-[address] Tenisha Encarnacion MD Work Phone: Start: 01-21-2024 Cardiac catheterization USMAN CHILDS MD [facility] Start: 11-23-[address] Tenisha Encarnacion Work Phone: Start: 11-23-2023 Plain chest X-ray Start: 09-09-2023 Echocardiography USMAN CHILDS MD [facility] Comment on above: Summary: 1. Left ventricle: The cavity size is normal. Wall thickness is mildly increased. Systolic function is normal. The estimated ejection fraction is 60-65%. Wall motion is normal; there are no regional wall motion abnormalities. Normal diastolic function. 2. Aortic valve: There is moderate stenosis. The mean systolic gradient is 19 mm Hg. The peak systolic gradient is 37 mm Hg. The LVOT to aortic valve VTI ratio is 0.44. The valve area is 1.2 cm . 3. Mitral valve: The annulus is mildly calcified. 4. Left atrium: The atrium is mildly dilated. 5. Right ventricle: The RV systolic pressure by Doppler is 31 mm Hg. 6. Tricuspid valve: There is mild, 1+ regurgitation. 7. Right atrium: The estimated right atrial pressure is 3 mm Hg. Start: 03-23-2023 Echocardiography ELIOT CASTILLO Start: 03-22-2023 Ecg routine ecg w/le ast 12 lds i&r only Annmarie Gargalianos POWDER ROOM ATTENDANT.PARATRANSIT DRIVER Work Phone: Start: 03-09-2023 Ct abdomen & pelvis w/contrast material Carl Encarnacion MD Work Phone: Start: 01-27-2023 Radex spine lumbosac ral 2/3 views Kristen Eugene PA-C Work Phone: Start: 01-12-2023 X-ray of lumbar spin e, two or three views Start: 07-20-2022 Radiologic exam ches t 2 views Isabel Jansen POWDER ROOM ATTENDANT.PARATRANSIT DRIVER Work Phone: Start: 06-26-2022 INFLUENZA SEASONAL QUADRIVALENT HIGH DOSE AGE 65+ Carl Encarnacion MD Work Phone: Start: 06-26-2022 [facility] COVI D-19 BIVALENT BOOSTER VACCINE, AGE 12+ YR Carl Encarnacion MD Work Phone: Extraction of cataract DR KOBY WALLER MD Plan of Treatment Date Care Activity Detail Author Start: 08-18-2026 [facility] Start: 07-26-2026 [facility] Start: 07-14-2026 Diabetes Screening [facility] Start: 07-07-2026 Diabetes Screening [facility] Start: 06-10-2026 Diabetes Screening [facility] Start: 06-02-2026 Diabetes Screening Diabetes [facility] Start: 04-14-2026 Diabetes Screening [facility] Start: 04-12-2026 DIABETES SCREEN DIABETES SCREEN [facility] Start: 03-22-2026 DIABETES SCREEN DIABETES SCREEN [facility] Start: 01-15-2026 DIABETES SCREEN DIABETES SCREEN [facility] Start: 12-12-2024 DIABETES SCREEN DIABETES SCREEN [facility] Start: 08-12-2024 DIABETES SCREEN DIABETES SCREEN [facility] Start: 04-09-2024 Covid-19 Vaccine () Covid-19 Vaccine () [facility] Start: 04-09-2024 Covid-19 Vaccine ( season) Covid-19 Vaccine () [facility] Start: 04-09-2024 Influenza vaccination Influenza Vacc ine (#1) [facility] Start: 02-17-2024 End: 02-17-2024 Patient encounter procedure 02/17/2024 10:20 AM EDT Office Visit [facility] [place] [address], [place] [id number] Kristen Eugene PA-C [address] [place], [place] [id number] Medicare wellness [facility] Comment on above: Medicare wellness Start: 01-13-2024 End: 04-13-2024 Bacteria identified in Urine by Culture URINE CULTURE Microbiology Routine Recurrent UTI (urinary tract infection) Expected: 01/13/2024, Expires: 04/13/2024 [facility] Work Phone: Comment on above: Expected: 01/13/2024 , Expires: 04/13/2024 Start: 12-23-2023 End: 03-23-2024 Bacteria identified in Urine by Culture URINE CULTURE Microbiology Routine Recurrent UTI (urinary tract infection) Expected: 12/23/2023, Expires: 03/23/2024 [facility] Work Phone: Comment on above: Expected: 12/23/2023 , Expires: 03/23/2024 Start: 12-13-2023 End: 03-13-2024 Bacteria identified in Urine by Culture URINE CULTURE Microbiology Routine Recurrent UTI (urinary tract infection) Expected: 12/13/2023, Expires: 03/13/2024 [facility] Work Phone: Comment on above: Expected: 12/13/2023 , Expires: 03/13/2024 Start: 12-13-2023 End: 03-13-2024 URINALYSIS, REFLEX MICROSCOPIC URINALYSIS, REFLEX MICROSCOPIC Lab Routine Recurrent UTI (urinary tract infection) Expected: 12/13/2023, Expires: 03/13/2024 [facility] Comment on above: Expected: 12/13/2023 , Expires: 03/13/2024 Start: 11-26-2023 Patient discharge [facility] Start: 11-24-2023 Referral to service [facility] Start: 11-23-2023 Bacteria identified in Urine by Culture [facility] Start: 11-23-2023 Following clinical p athway protocol [facility] Start: 11-23-2023 Ambulation without limitation [facility] Start: 11-23-2023 Assessment of risk o f venous thromboembolism [facility] Start: 11-23-2023 Insertion of cathete r into peripheral vein [facility] Start: 11-23-2023 Providing care accor ding to standard [facility] Start: 11-23-2023 Referral to occupati onal therapist [facility] Start: 11-23-2023 Referral to service [facility] Start: 11-23-2023 [facility] Start: 11-23-2023 Hospital admission, emergency, from emergency room, medical nature [facility] Start: 11-23-2023 Verification routine [facility] Start: 11-23-2023 Admission procedure [facility] Start: 11-23-2023 [facility] Start: 11-23-2023 [facility] Start: 08-09-2023 Advance Directive Discussion Advance Directive Discussion [facility] Start: 08-09-2023 Behavioral Health Screening Behavioral Health Screening [facility] Start: 08-09-2023 Depression Assessment Depression Ass essment [facility] Start: 07-14-2023 End: 10-13-2023 Basic metabolic 2000 panel - Serum or Plasma BASIC METABOLIC PNL Lab STAT Malignant neoplasm of right ovary (HCC) Expected: 07/14/2023, Expires: 10/13/2023 [facility] Work Phone: Comment on above: Expected: 07/14/2023 , Expires: 10/13/2023 Start: 07-12-2023 Covid-19 Vaccine () Covid-19 Vaccine () [facility] Start: 06-26-2023 Shingrix Vaccine (1 of 2) Hoff grix Vaccine (1 of 2) [facility] Comment on above: Postponed from 01/21 (Insurance Coverage) Start: 06-26-2023 SHINGRIX VACCINE (2 of 3) HOFF GRIX VACCINE (2 of 3) [facility] Comment on above: Postponed from 01/21 (Insurance Coverage) Start: 06-26-2023 Urine microalbumin profile [facility] Comment on above: Postponed from 03/17 (Insurance Coverage) Start: 06-18-2023 End: 09-17-2023 Basic metabolic 2000 panel - Serum or Plasma BASIC METABOLIC PNL Lab STAT 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 (HCC) Expected: 06/18/2023, Expires: 09/17/2023 [facility] Work Phone: Comment on above: Expected: 06/18/2023 , Expires: 09/17/2023 Start: 06-07-2023 End: 09-06-2023 PAULINE ISTAT BMP PAULINE ISTAT BMP Lab STAT 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 (HCC) Expected: 06/07/2023, Expires: 09/06/2023 [facility] Work Phone: Comment on above: Expected: 06/07/2023 , Expires: 09/06/2023 Start: 04-09-2023 Influenza vaccination [facility] Start: 01-25-2023 End: 03-27-2023 Bacteria identified in Urine by Culture URINE CULTURE Microbiology Routine Urinary frequency Expected: 01/25/2023, Expires: 03/27/2023 [facility] Work Phone: Comment on above: Expected: 01/25/2023 , Expires: 03/27/2023 Start: 10-24-2022 COVID-19 VACCINE (5 - Mixed Product series) COVID-19 VACCINE (5 - Mixed Product series) [facility] Start: 08-09-2022 ADVANCE DIRECTIVE DISCUSSION ADVANCE DIRECTIVE DISCUSSION [facility] Start: 08-09-2022 DEPRESSION ASSESSMENT DEPRESSION ASS ESSMENT [facility] Start: 04-09-2022 Influenza vaccination INFLUENZA (#1) [facility] Start: 12-10-2021 COVID-19 VACCINE (4 - Booster) COVID-19 VACCINE (4 - Booster) [facility] Start: 11-12-2021 End: 01-12-2022 Bacteria identified in Urine by Culture URINE CULTURE Microbiology Routine Frequent UTI Confusion Expected: 11/12/2021, Expires: 01/12/2022 [facility] Work Phone: Comment on above: Expected: 11/12/2021 , Expires: 01/12/2022 Start: 11-12-2021 End: 01-12-2022 Urinalysis complete panel - Urine URINALYSIS, WITH MICROSCOPIC Lab Routine Frequent UTI Confusion Expected: 11/12/2021, Expires: 01/12/2022 [facility] Work Phone: Comment on above: Expected: 11/12/2021 , Expires: 01/12/2022 Start: 10-07-2021 COVID-19 VACCINE (4 - Booster) COVID-19 VACCINE (4 - Booster) [facility] Start: 08-09-2021 ADVANCE DIRECTIVE DISCUSSION ADVANCE DIRECTIVE DISCUSSION [facility] Start: 08-09-2021 DEPRESSION ASSESSMENT DEPRESSION ASS ESSMENT [facility] Start: 2014 RSV Vaccine (1 - 1-d ose 75+ series) RSV Vaccine (1 - 1-dose 75+ series) [facility] Start: 01-22-2012 Shingrix Vaccine (1 of 2) Hoff grix Vaccine (1 of 2) [facility] Start: 01-22-2012 SHINGRIX VACCINE (2 of 3) HOFF GRIX VACCINE (2 of 3) [facility] Start: 10-22-2005 Screening for malign ant neoplasm of cervix Cervical Cancer Screening [facility] Start: 1999 RSV Vaccine (1 - 1-d ose 60+ series) RSV Vaccine (1 - 1-dose 60+ series) [facility] Start: 1958 Urine microalbumin profile [facility] Start: 1957 Anxiety Screening Anxiety Screening [facility] Start: 1957 Depression Screening Depression Scre ening [facility] End: 06-06-2024 Cancer Ag 125 [Units/volume] in Serum or Plasma CA 125 BLD Lab Routine 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 (HCC) Every 3 weeks for 30 Occurrences starting 06/07/2023 until 06/06/2024 [facility] Work Phone: Comment on above: Every 3 weeks for 30 Occurrences starting 06/07/2023 until 06/06/2024 End: 06-06-2024 CBC W Auto Differential panel - Blood CBC + DIFF Lab STAT 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 (HCC) Every 3 weeks for 30 Occurrences starting 06/07/2023 until 06/06/2024 [facility] Work Phone: Comment on above: Every 3 weeks for 30 Occurrences starting 06/07/2023 until 06/06/2024 End: 06-06-2024 Comprehensive metabolic 2000 panel - Serum or Plasma COMP METABOLIC PANEL Lab STAT 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 (HCC) Every 3 weeks for 30 Occurrences starting 06/07/2023 until 06/06/2024 [facility] Work Phone: Comment on above: Every 3 weeks for 30 Occurrences starting 06/07/2023 until 06/06/2024 End: 03-22-2024 Echocardiography ECHO Cardiology KARLENE Preop examination 1 Occurrences starting 03/22/2023 until 03/22/2024 [facility] Work Phone: Comment on above: 1 Occurrences starti ng 03/22/2023 until 03/22/2024 End: 06-06-2024 Magnesium [Mass/volume] in Serum or Plasma MAGNESIUM BLD Lab Routine 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 (HCC) Every 3 weeks for 30 Occurrences starting 06/07/2023 until 06/06/2024 [facility] Work Phone: Comment on above: Every 3 weeks for 30 Occurrences starting 06/07/2023 until 06/06/2024 OXIMETRY - NOCTURNAL OXIMETRY - NOCTURNAL Procedures Routine Hypoxia Ordered: 05/01/2022 [facility] Work Phone: Comment on above: Ordered: 05/01/2022 End: 05-31-2023 OXIMETRY WITH AMBULATION OXIMETRY WITH AMBULATION PFT Routine Hypoxia 1 Occurrences starting 05/01/2022 until 05/31/2023 [facility] Work Phone: Comment on above: 1 Occurrences starti ng 05/01/2022 until 05/31/2023 PAIN PANEL, UR QUANT PAIN PANEL, UR QUANT Lab Routine Osteoarthritis of multiple joints, unspecified osteoarthritis type Medication management Ordered: 12/12/2021 [facility] Work Phone: Comment on above: Ordered: 12/12/2021 PAIN PANEL, UR QUANT PAIN PANEL, UR QUANT Lab Routine Osteoarthritis of multiple joints, unspecified osteoarthritis type Medication management Ordered: 12/12/2021 [facility] Work Phone: Comment on above: Ordered: 12/12/2021 Patient Education ED Back Sprain/Strain W [facility] Work Phone: Patient referral [facility] Work Phone: PT PLAN OF CARE CERTIFICATION PT PLAN OF CARE CERTIFICATION Procedures Routine Sciatica, right side Falls, subsequent encounter Ordered: 02/02/2023 [facility] Comment on above: Ordered: 02/02/2023 End: 02-26-2024 Radex spine lumbosacral 2/3 views XR LUMBAR GENERAL 3V AP/LAT/L5-S1 Radiology Routine Sciatica, right side Fall, subsequent encounter 1 Occurrences starting 01/27/2023 until 02/26/2024 [facility] Work Phone: Comment on above: 1 Occurrences starti ng 01/27/2023 until 02/26/2024 [facility] spine lumbosac ral 2/3 views XR LUMBAR GENERAL 3V AP/LAT/L5-S1 Radiology Routine Sciatica, right side Fall, subsequent encounter 01/27/2023 12:01 PM EDT [facility] Work Phone: End: 08-18-2023 Radiologic exam chest 2 views XR CHEST 2V FRONTAL/LAT Radiology STAT Acute cough Wheezing 1 Occurrences starting 07/19/2022 until 08/18/2023 [facility] Work Phone: Comment on above: 1 Occurrences starti ng 07/19/2022 until 08/18/2023 Radiologic exam ches t 2 views XR CHEST 2V FRONTAL/LAT Radiology Routine Ovarian mass Preop examination 03/22/2023 1:40 PM EDT [facility] Work Phone: SPECIMEN VALIDITY, URINE SPECIME N VALIDITY, URINE Lab Routine Osteoarthritis of multiple joints, unspecified osteoarthritis type Medication management Ordered: 12/12/2021 [facility] Work Phone: Comment on above: Ordered: 12/12/2021 TOX SCREEN ROUT UR TOX SCREEN RO UT UR Lab Routine Osteoarthritis of multiple joints, unspecified osteoarthritis type Medication management Ordered: 12/12/2021 [facility] Work Phone: Comment on above: Ordered: 12/12/2021 [facility] Immunizations Immunization Date Immunization Notes Care Provider Fa [facility] 05-17-2023 COVID-19 vaccine, ag e 12+ yr, season (PFIZER-BIONTMangatar) Carl Encarnacion MD Work Phone: [facility] 05-17-2023 influenza (HD-IIV4) vaccine, age 65+ yr, high dose, quadrivalent, PF (FLUZONE HIGH-DOSE) Carl Encarnacion MD Work Phone: [facility] 05-17-2023 influenza virus vacc ine, unspecified formulation USMAN CHILDS MD FACP [facility] 05-17-2023 SARS-CoV-2 (COVID-19 ) [id number] USMAN CHILDS MD FACP [facility] Comment on above: Result Comment: 2023: TPV80 06-26-2022 COVID-19 booster vaccine, age 12+ yr, bivalent (PFIZER-BIONTECH) Carl Encarnacion MD Work Phone: [facility] 06-26-2022 influenza, high-dose , quadrivalent vaccine (FLUZONE HIGH DOSE QUADRIVALENT) Carl Encarnacion MD Work Phone: [facility] 06-26-2022 influenza virus vacc ine, unspecified formulation Annmarie Tucker POWDER ROOM ATTENDANT.[facility] Work Phone: [facility] 08-12-2021 COVID-19 vaccine, ag e 12+ yr (PFIZER-BIONTECH - [facility]) Carl Encarnacion MD Work Phone: [facility] Work Phone: Comment on above: Result Comment: 2023: INDIVIDUALS OVER 80 YEARS OF AGE 1005-31-2021 influenza virus vacc ine, unspecified formulation USMAN CHILDS MD [facility] 05-31-2021 influenza, injectabl e, quadrivalent, preservative free [facility] 05-31-2021 influenza, seasonal, injectable [facility] 09-29-2020 COVID-19 vaccine, ag e 12+ yr (PFIZER-BIONTECH - [facility]) Carl Encarnacion MD Work Phone: [facility] Work Phone: Comment on above: Result Comment: 2023: TPV80 09-05-2020 Covid (Pfizer) [facility] Comment on above: Result Comment: 2023: TPV80 09-05-2020 COVID-19 vaccine, fu ll dose (MODERNA) Carl Encarnacion MD Work Phone: [facility] Work Phone: 06-15-2020 influenza virus vacc ine, unspecified formulation USMAN CHILDS MD [facility] 06-15-2020 influenza, injectabl e, quadrivalent, contains preservative Carl Encarnacion MD Work Phone: [facility] 05-08-2019 influenza virus vacc ine, unspecified formulation USMAN CHILDS MD FAC [facility] 05-08-2019 influenza, high dose seasonal, preservative-free Carl Encarnacion MD Work Phone: [facility] 05-10-2018 influenza virus vacc ine, unspecified formulation USMAN CHILDS MD [facility] 05-10-2018 influenza, high dose seasonal, preservative-free Carl Encarnacion MD Work Phone: [facility] 05-17-2017 influenza virus vacc ine, unspecified formulation USMAN CHILDS MD FAC [facility] 05-17-2017 influenza, high dose seasonal, preservative-free Carl Encarnacion MD Work Phone: [facility] 02-26-2017 pneumococcal polysaccharide vaccine, 23 valent Carl Encarnacion MD Work Phone: [facility] 05-13-2016 influenza virus vacc ine, unspecified formulation USMAN CHILDS MD [facility] 05-13-2016 influenza, high dose seasonal, preservative-free Carl Encarnacion MD Work Phone: [facility] 02-27-2016 pneumococcal conjuga te vaccine, 13 valent Carl Encarnacion MD Work Phone: [facility] 07-16-2015 influenza virus vacc ine, unspecified formulation USMAN CHILDS MD [facility] 07-16-2015 influenza, injectabl e, quadrivalent, contains preservative Carl Encarnacion MD Work Phone: [facility] Work Phone: 05-11-2014 influenza virus vacc ine, unspecified formulation USMAN CHILDS MD FAC [facility] 05-11-2014 influenza, seasonal, injectable Carl Encarnacion MD Work Phone: [facility] Work Phone: 07-17-2013 influenza virus vacc ine, unspecified formulation Carl Encarnacion MD Work Phone: [facility] Work Phone: 07-09-2012 influenza virus vacc ine, unspecified formulation Carl Encarnacion MD Work Phone: [facility] Work Phone: 11-27-2011 zoster vaccine, live Carl Encarnacion MD Work Phone: [facility] 06-24-2010 influenza virus vacc ine, unspecified formulation Carl Encarnacion MD Work Phone: [facility] 07-13-2006 influenza virus vacc ine, unspecified formulation Carl Encarnacion MD Work Phone: [facility] Work Phone: 07-13-2006 pneumococcal polysaccharide vaccine, 23 valent Carl Encarnacion MD Work Phone: [facility] Work Phone: Payers Date Payer Category Payer Private Health Insurance [id number] 2024 Self-pay [id number] 2024 Medicaid [id number] 2023 Medicare [id number] 2021 Unknown [address] [facility] AND BLUE [facility] ANTHEM MEDIBLUE ACCESS [id number] 2021-Present [phone] [address] [place] [address] PPO [id number]. [id number] 2021 Unknown [id number]. 1.13.159.2. [id number] 2021 Medicare [id number] 2015 Unknown HOSP[facility] GENERIC MEDICAL GENERIC [id number] 2015-Present [phone] [place] [address] Indemnity [id number]. [id number] 2004 Medicare MEDICARE MEDICAR E A AND B [id number] 2004-Present [phone] [place] [address] Medicare [id number] [id number]. [id number] 1939 Unknown [id number] 2.16840.1.040709.3.579.2. 627 1939 Unknown [id number] 2.16840.1.206144.3.579.2. 627 1939 Unknown [id number] 2.840.1.797951.3.579.2. 627 1939 Unknown [id number] 2.840.1.492388.3.579.2. 627 1939 Unknown [id number] 2.840.1.850303.3.579.2. 627 1939 Unknown [id number] 2.840.1.871044.3.579.2. 627 1939 Unknown [id number] 2.840.1.014650.3.579.2. 627 Unknown [facility] [id number] Unknown COMMERCIAL OTHER [id number] Unknown [id number] 2.16840.1.545499.3.579.2. 462 Unknown [id number] 2.16840.1.723220.3.579.2. 462 Unknown [id number] 2.16840.1.196096.3.579.2. 462 Unknown [id number] 2.16840.1.849834.3.579.2. 462 Unknown [id number] 2.16.840.1.345194.3.579.2. 462 Unknown [id number] 2.16.840.1.383329.3.579.2. 462 Unknown [id number] 2.16.840.1.446142.3.579.2. 462 Unknown [id number] 2.16.840.1.355748.3.579.2. 462 Unknown [id number] 2.16.840.1.585856.3.579.2. 462 Unknown [id number] 2.16.840.1.406133.3.579.2. 462 Unknown [id number] 2.840.1.663809.3.579.2. 462 Unknown [id number] 2.840.1.309591.3.579.2. 462 Unknown [id number] 2.840.1.748285.3.579.2. 462 Unknown [id number] 2.840.1.132230.3.579.2. 462 Unknown [id number] 2.840.1.098609.3.579.2. 462 Unknown [id number] 2.16.840.1.627873.3.579.2. 462 Unknown [id number] 2.840.1.896060.3.579.2. 462 Unknown [id number] 2.840.1.123801.3.579.2. 462 Unknown [id number] 2.16840.1.238240.3.579.2. 462 Unknown [id number] 2.16.840.1.684407.3.579.2. 462 Unknown [id number] 2.16.840.1.550918.3.579.2. 462 Unknown [id number] 2.16.840.1.962716.3.579.2. 462 Unknown [id number] 2.16840.1.571051.3.579.2. 462 Unknown [id number] 2.840.1.755038.3.579.2. 462 Unknown [id number] 2.840.1.984904.3.579.2. 462 Unknown [id number] 2.840.1.746226.3.579.2. 462 Unknown [id number] 2.840.1.160610.3.579.2. 462 Unknown [id number] 2.840.1.720240.3.579.2. 462 Unknown [id number] 2.840.1.277999.3.579.2. 462 Unknown [id number] 2.840.1.564300.3.579.2. 462 Unknown [id number] 2.840.1.827294.3.579.2. 462 Unknown [id number] 2.840.1.832750.3.579.2. 462 Unknown [id number] .840.1.351433.3.579.2. 462 Unknown [id number] 2.840.1.061903.3.579.2. 462 Unknown [id number] .840.1.568381.3.579.2. 462 Unknown [id number] .840.1.450936.3.579.2. 462 Unknown [id number] .840.1.806112.3.579.2. 462 Unknown [id number] .840.1.181594.3.579.2. 462 Unknown [id number] 2.840.1.696106.3.579.2. 462 Unknown [id number] 2.840.1.322635.3.579.2. 462 Unknown [id number] 2.840.1.159446.3.579.2. 462 Unknown [id number] 2.16.840.1.633715.3.579.2. 462 Unknown [id number] 2.16.840.1.440350.3.579.2. 462 Unknown [id number] 2.16.840.1.038568.3.579.2. 462 Unknown [id number] 2.16.840.1.354903.3.579.2. 462 Unknown [id number] 2.16.840.1.515738.3.579.2. 462 Social History Date Type Detail Facility Start: 11-23-2011 End: 09-16-2023 Tobacco smoking status NHIS Never smoked tobacco [facility] Start: 06-17-2021 End: 07-19-2022 Alcohol intake Current non-drinker of alcohol (finding) [facility] Start: 1940 Sex Assigned At Not on file [facility] Start: 12-02-2021 End: 06-26-2022 Exposure to SARS-CoV-2 (event) Not sure [facility] Start: 11-23-2011 End: 06-02-2023 Tobacco use and exposure Smokeless tobacco non-user [facility] Start: 01-12-2023 End: 11-23-2023 Tobacco smoking status WIIS Unknown if ever smoked [facility] Start: 1940 Sex Assigned At Female [facility] Start: 07-15-2020 End: 03-10-2023 History of Social function [facility] Work Phone: Start: 07-15-2020 End: 03-10-2023 Tobacco use panel [facility] Work Phone: Adult Depression Screening Assessment 0 [facility] Work Phone: Start: 06-02-2023 End: 03-14-2024 Tobacco smoking status NHIS Ex-smoker [facility] History of tobacco use Current smoker [facility] History of tobacco use Cigarette Smoker [facility] Start: 06-04-2023 Gender identity Identifies as female gender (finding) [facility] Start: 06-04-2023 Sexual orientation Heterosexual (fin ding) [facility] Start: 11-09-2024 End: 11-24-2024 Sex Female (finding) [facility] Goals Date Patient Goal Desired Activity /State Functional Status Date Assessment Result Facility 02-14-2024 Functional Status Room check performed [facility] 02-14-2024 Functional Status Refused [facility] 02-14-2024 Functional Status [facility] 02-14-2024 Functional Status [facility] 02-13-2024 Functional Status [facility] 02-13-2024 Functional Status Skin Care Prev entative Intervention(s) heel(s)s elevated [facility] 02-13-2024 Functional Status [facility] 02-13[facility] Functional Status Rosa Maria Brooke [facility] 02-12-2024 Functional Status Lunch Percent 50 [facility] 02-12-2024 Functional Status Rosa Maria [facility] 02-11-2024 Functional Status Rosa Maria [facility] 02-11-2024 Functional Status Min A Rosa [facility] 02-11-2024 Functional Status bilateral knee high removed/off [facility] 02-11-2024 Functional Status Reason SCD Rem nuvia/Off Patient refused [facility] 02-10-2024 Functional Status [facility] 02-10-2024 Functional Status Rosa Maria [facility] 02-10-2024 Functional Status Rosa Maria Brooke [facility] 02-09-2024 Functional Status Rosa Maria Brooke [facility] 02-09-2024 Functional Status Pt. normally d oes sponge bathing. [facility] 02-09-2024 Functional Status NPO Status Maintained A [facility] 02-08-2024 Functional Status [facility] 02-07-2024 Functional Status [facility] 02-07-2024 Functional Status [facility]-07[facility]24 Functional Status Transparent silicone dr essing [facility] 02-07-2024 Functional Status Assistive Equi pment elevated on pillows [facility] 02-07-2024 Functional Status [facility] 02-06-2024 Functional Status [facility] 02-06-2024 Functional Status [facility] 02-06-2024 Functional Status [facility] 02-05-2024 Functional Status None [facility] 02-05-2024 Functional Status Awake Rosa Maria gould [facility] 02-04-2024 Functional Status Rosa Maria gould [facility] 02-04-2024 Functional Status Identified as high risk, Fall ID band on, Door open, Non-Slip footwear, Room check performed [facility] 02-04-2024 Functional Status Rosa Maria gould [facility] 02-04-2024 Functional Status Rosa Maria gould [facility] 02-04-2024 Functional Status 25 Rosa Maria Brooke [facility] 02-04-2024 Functional Status Rosa Maria Brooke [facility] 02-03-2024 Functional Status Up to Chair Re rohini up in chair [facility] 02-03-2024 Functional Status Pt. normally d oes sponge bathing. [facility] 02-03-2024 Functional Status Rosa Maria Brooke [facility] 02-01-2024 Functional Status Single level home [facility] 02-01-2024 Functional Status Sensory Deficits None A [facility] 02-01-2024 Functional Status Max A Rosa Maria Brooke [facility] 02-01-2024 Functional Status Door open, Non-Slip footwear, Room check performed [facility] 02-01-2024 [facility] Status Rosa Maria Brooke [facility] 01-31-2024 Functional Status Repositioned right side [facility] 01-31-2024 Functional Status Rosa Maria Brooke [facility] 01-31-2024 Functional Status [facility] Functional Status Rosa Maria Brooke [facility] 01-31-2024 Functional Status Rosa Maria Brooke [facility] 01-31-2024 Functional Status Rosa Maria Brooke [facility] 01-30-2024 Functional Status Foam dressing [facility] 01-30-2024 Functional Status Rosa Maria Ho spital [facility] 01-29-2024 Functional Status Dinner Percent 25 [facility] 01-29-2024 Functional Status Max A [facility] 01-29-2024 Functional Status Rosa Maria Ho [facility] 01-29-2024 Functional Status [facility] 01-28-2024 Functional Status Rosa Maria Ho [facility] 01-28-2024 Functional Status Rosa Maria [facility] 01-28-2024 Functional Status [facility] 01-27-2024 Functional Status Rosa Maria Ho [facility] 01-27-2024 Functional Status Mod A Rosa Maria Ho [facility] 01-27-2024 Functional Status [facility] 01-27-2024 Functional Status Min A 9 Rosa Maria Ho [facility] 01-26-2024 Functional Status Independent [facility] 01-26-2024 Functional Status Rosa Maria Ho [facility] 01-25-2024 Functional Status [facility] 01-25-2024 Functional Status [facility] 01-24-2024 Functional Status Single level home [facility] 01-23-2024 Functional Status Rosa Maria Ho [facility] 01-23-2024 Functional Status [facility] 01-22-2024 Functional Status Rosa Maria Ho [facility] 01-22-2024 Functional Status Sensory Deficits None A [facility] 12-11-2023 Functional Status Repositions self [facility] 12-11-2023 Functional Status Room check performed [facility] 12-11-2023 Functional Status Rosa Maria Ho [facility] 12-11-2023 Functional Status Rosa Maria Ho [facility] 12-10-2023 Functional Status Activity Statu s ADL Sleeping quietly with easy respirations [facility] 12-10-2023 Functional Status bilateral knee high removed/off [facility] 12-10-2023 Functional Status Rosa Maria Ho [facility] 12-10-2023 Functional Status Rosa Maria Ho [facility] 12-10-2023 Functional Status Mod I Rosa Maria Ho [facility] 12-10-2023 Functional Status [facility] 12-10-2023 Functional Status Rosa Maria Ho [facility] 12-09-2023 Functional Status [facility] 12-09-2023 Functional Status Supervised Rosa Maria Brooke [facility] 12-09-2023 Functional Status Rosa Maria Ho [facility] 12-09-2023 Functional Status Rosa Maria Ho [facility] 12-08-2023 Functional Status Rosa Maria Ho [facility] 12-08-2023 Functional Status Rosa Maria Brooke [facility] 12-07-2023 Functional Status Rosa Maria Brooke [facility] 12-07-2023 Functional Status Rosa Maria Brooke [facility] 12-07-2023 Functional Status Linen Change Done [facility] 12-07-2023 Functional Status Rosa Maria Brooke [facility] 12-06-2023 Functional Status Rosa Maria Brooke [facility] 12-06-2023 Functional Status Rosa Maria Brooke [facility] 12-05-2023 Functional Status Skin Care Prev entative Intervention(s) heel(s)s elevated [facility] 12-05-2023 Functional Status Rosa Maria Brooke [facility] 12-05-2023 Functional Status Rosa Maria Brooke [facility] 12-05-2023 Functional Status Rosa Maria Brooke [facility] 12-04-2023 Functional Status Lunch Percent 50 [facility] 12-04-2023 Functional Status Rosa Maria Brooke [facility] 12-04-2023 Functional Status Rosa Maria Brooke [facility] 12-03-2023 Functional Status Independent 10 [facility] 12-03-2023 Functional Status Rosa Maria Brooke [facility] 12-02-2023 Functional Status Up to Chair Returned to bed [facility] 12-02-2023 Functional Status Rosa Maria Brooke [facility] 12-02-2023 Functional Status Dinner Percent 5 [facility] 12-02-2023 Functional Status Rosa Maria Brooke [facility] 12-01-2023 Functional Status Rosa Maria Brooke [facility] 12-01-2023 Functional Status Rosa Maria Brooke [facility] 11-30-2023 Functional Status Rosa Maria Brooke [facility] 11-30-2023 Functional Status Rosa Maria Brooke [facility] 11-29-2023 Functional Status Mod A Rosa Maria Brooke [facility] 11-28-2023 Functional Status Done Rosa Maria Brooke [facility] 11-27-2023 Functional Status Single level home [facility] 11-27-2023 Functional Status Rosa Maria Brooke [facility] 11-26-2023 Functional Status Sensory Deficits None A [facility] 11-26-2023 Functional status Chair [facility] Work Phone: Mental Status Date Assessment Result Facility 02-14-2024 Mental Status Orientation Asse ssment Identifies self, Not oriented to time, Oriented to person 1 [facility] 02-14-2024 Mental Status Oriented x 4 [facility] 02-13-2024 Mental Status [facility] 02-13-2024 Mental Status [facility] 02-04-2024 Mental Status Not oriented to place, Not oriented to time, Not oriented to situation, Forgetful, Follows simple commands [facility] 02-04-2024 Mental Status [facility] 02-03-2024 Mental Status [facility] 02-01-2024 Mental Status Orientation Asse ssment Oriented x 4 [facility] 02-01-2024 Mental Status Not oriented to person, Not oriented to time [facility] 01-31-2024 Mental Status [facility] 01-31-2024 Mental Status [facility] 01-31-2024 Mental Status [facility] 12-11-2023 Mental Status Oriented x 4 [facility] 12-10-2023 Mental Status [facility] 12-10-2023 Mental Status [facility] 12-10-2023 Mental Status [facility] 11-26-2023 Cognitive function Voice/Name [facility] Work Phone: 11-23-2023 Cognitive function Level Of Cons ciousness Awake;Alert;Appropriate;Follow s Commands [facility] Work Phone: Clinical Notes 06-18-2021 to 02-15-2024 Telephone Encounter - Carl Encarnacion MD - 02/15/2024 2:00 PM EDTTelephone Encounter - Carl Encarnacion MD - 02/15/2024 2:00 PM EDTTelephone Encounter - Stephanie Wilder - 02/15/2024 8:15 AM EDT Note Date & Type Note Facility 02-15-2024 Telephone encounter Note The following approved medication requests have been transmitted electronically. Requested Prescriptions Signed Prescriptions Disp Refills traMADol (ULTRAM) 50 mg tablet 60 tablet 0 Sig: Take 1 tablet by mouth two times a day for 30 days. for arthritis pain. Authorizing Provider: CARL ENCARNACION MD PDMP website checked and validated. All prescriptions have been APPROPRIATELY filled. No suspicious activity was identified. 02/15/2024 by Carl Encarnacion MD [facility] 02-15-2024 Miscellaneous Notes The following approved medication requests have been transmitted electronically. Requested Prescriptions Signed Prescriptions Disp Refills traMADol (ULTRAM) 50 mg tablet 60 tablet 0 Sig: Take 1 tablet by mouth two times a day for 30 days. for arthritis pain. Authorizing Provider: CARL ENCARNACION MD PDMP website checked and validated. All prescriptions have been APPROPRIATELY filled. No suspicious activity was identified. 02/15/2024 by Carl Encarnacion MD Prescription Refill Information The patient has been identified by name and date of : Yes Caregiver verified no other encounters exist for this prescription request: Yes Caregiver confirmed with patient/requestor that no other refills are due, in the near future, with this provider at this time: Yes The last office visit in the department: 12/13/23 Does the patient have a future office visit with this provider/department: Yes Requested Prescriptions Pending Prescriptions Disp Refills traMADol (ULTRAM) 50 mg tablet 60 tablet 0 Sig: Take 1 tablet by mouth two times a day for 30 days. for arthritis pain. Jeremiah Puckett LPN February 15, 2024 11:25 AM Prescription Refill Information The patient has been identified by name and date of : Yes Caregiver verified no other encounters exist for this prescription request: Yes Caregiver confirmed with patient/requestor that no other refills are due, in the near future, with this provider at this time: Yes The last office visit in the department: 12-13-23 Does the patient have a future office visit with this provider/department: Yes Requested Prescriptions Pending Prescriptions Disp Refills traMADol (ULTRAM) 50 mg tablet 60 tablet 0 Sig: Take 1 tablet by mouth two times a day for 30 days. for arthritis pain. Stephanie Estrada February 15, 2024 8:15 AM documented in this encounter [facility] 02-15-2024 Telephone encounter Note Prescription Refill Information The patient has been identified by name and date of : Yes Caregiver verified no other encounters exist for this prescription request: Yes Caregiver confirmed with patient/requestor that no other refills are due, in the near future, with this provider at this time: Yes The last office visit in the department: 12/13/23 Does the patient have a future office visit with this provider/department: Yes Requested Prescriptions Pending Prescriptions Disp Refills traMADol (ULTRAM) 50 mg tablet 60 tablet 0 Sig: Take 1 tablet by mouth two times a day for 30 days. for arthritis pain. Jeremiah Puckett LPN February 15, 2024 11:25 AM [facility] 02-15-2024 Telephone encounter Note Prescription Refill Information The patient has been identified by name and date of : Yes Caregiver verified no other encounters exist for this prescription request: Yes Caregiver confirmed with patient/requestor that no other refills are due, in the near future, with this provider at this time: Yes The last office visit in the department: 12-13-23 Does the patient have a future office visit with this provider/department: Yes Requested Prescriptions Pending Prescriptions Disp Refills traMADol (ULTRAM) 50 mg tablet 60 tablet 0 Sig: Take 1 tablet by mouth two times a day for 30 days. for arthritis pain. Stephanie Estrada February 15, 2024 8:15 AM [facility] 02-14-2024 Hospital Discharg e instructions Patient Education 02/14/2024 13:47:33 Bacteremia, Adult Bacteremia, Adult Bacteremia is the presence of bacteria in the blood. When bacteria enter the bloodstream, they can cause a life-threatening reaction called sepsis. Sepsis is a medical emergency. What are the causes? This condition is caused by bacteria that get into the blood. Bacteria can enter the blood from an infection, including: A skin infection or injury, such as a burn or a cut. A lung infection (pneumonia). An infection in the stomach or intestines. An infection in the bladder or urinary system (urinary tract infection). A bacterial infection in another part of the body that spreads to the blood. Bacteria can also enter the blood during a dental or medical procedure, from bleeding gums, or through use of an unclean needle. What increases the risk? This condition is more likely to develop in children, older adults, and people who have: A long-term (chronic) disease or condition like diabetes or chronic kidney failure. An artificial joint or heart valve, or heart valve disease. A tube inserted to treat a medical condition, such as a urinary catheter or IV. A weak disease-fighting system (immune system). Injected illegal drugs. Been hospitalized for more than 10 days in a row. What are the signs or symptoms? Symptoms of this condition include: Fever and chills. Fast heartbeat and shortness of breath. Dizziness, weakness, and low blood pressure. Confusion or anxiety. Pain in the abdomen, nausea, vomiting, and diarrhea. Bacteremia that has spread to other parts of the body may cause symptoms in those areas. In some cases, there are no symptoms. How is this diagnosed? This condition may be diagnosed with a physical exam and tests, such as: Blood tests to check for bacteria (cultures) or other signs of infection. Tests of any tubes that you have had inserted. These tests check for a source of infection. Urine tests to check for bacteria in the urine. Imaging tests, such as an X-ray, a CT scan, an MRI, or a heart ultrasound. These check for a source of infection in other parts of your body, such as your lungs, heart valves, or joints. How is this treated? This condition is usually treated in the hospital. If you are treated at home, you may need to return to the hospital for medicines, blood tests, and evaluation. Treatment may include: Antibiotic medicines. These may be given by mouth or directly into your blood through an IV. You may need antibiotics for several weeks. At first, you may be given an antibiotic to kill most types of blood bacteria. If tests show that a certain kind of bacteria is causing the problem, you may be given a different antibiotic. IV fluids. Removing any catheter or device that could be a source of infection. Blood pressure and breathing support, if needed. Surgery to control the source or the spread of infection, such as surgery to remove an implanted device, abscess, or infected tissue. Follow these instructions at home: Medicines Take [id number]-prngiox and prescription medicines only as told by your health care provider. If you were prescribed an antibiotic medicine, take it as told by your health care provider. Do not stop taking the antibiotic even if you start to feel better. General instructions Rest as needed. Ask your health care provider when you may return to normal activities. Drink enough fluid to keep your urine pale yellow. Do not use any products that contain nicotine or tobacco, such as cigarettes, e-cigarettes, and chewing tobacco. If you need help quitting, ask your health care provider. Keep all follow-up visits as told by your health care provider. This is important. How is this prevented? Wash your hands regularly with soap and water. If soap and water are not available, use hand photographic supervisor. You should wash your hands: ?After using the toilet or changing a diaper. ?Before preparing, cooking, serving, or eating food. ?While caring for a sick person or while visiting someone in a hospital. ?Before and after changing bandages (dressings) over wounds. Clean any scrapes or cuts with soap and water and cover them with a clean bandage. Get vaccinations as recommended by your health care provider. Practice good oral hygiene. Waka your teeth two times a day, and floss regularly. Take good care of your skin. This includes bathing and moisturizing on a regular basis. Contact a health care provider if: Your symptoms get worse, and medicines do not help. You have severe pain. Get help right away if you have: Pain. A fever or chills. Trouble breathing. A fast heart rate. Skin that is blotchy, pale, or clammy. Confusion. Weakness. Lack of energy or unusual sleepiness. New symptoms that develop after treatment has started. These symptoms may represent a serious problem that is an emergency. Do not wait to see if the symptoms will go away. Get medical help right away. Call your local emergency services (911 in the [place] Do not drive yourself to the hospital. Summary Bacteremia is the presence of bacteria in the blood. When bacteria enter the bloodstream, they can cause a life-threatening reaction called sepsis. Bacteremia is usually treated with antibiotic medicines in the hospital. If you were prescribed an antibiotic medicine, take it as told by your health care provider. Do not stop taking the antibiotic even if you start to feel better. Get help right away if you have any new symptoms that develop after treatment has started. This information is not intended to replace advice given to you by your health care provider. Make sure you discuss any questions you have with your health care provider. Document Released: 05/09/2007 Document Revised: 12/15/2019 Document Reviewed: 12/15/2019 [employer] Patient Education 2019 [employer]. Follow Up Care 02/04/2024 10:08:29 With:LINDA ANNE BA, MD, Infectious Disease, Infectious Disease Group Address: [facility] [address] [place] [phone] When:Within 3 Week(s) Comments:Schedule appointment as soon as possible With:Alyson [facility] skilled care, report to [phone] Address:Unknown When:1-2 days With:ESTER BEJARANO Address: [address] [address]- Business (1) When:1-2 days [facility] 02-14-2024 Note Discharge Instructions Thank you for allowing [facility] to assist you with your healthcare needs. The following is important discharge information regarding your hospital visit. Your Care Team ESTER BEJARANO MSN, [employer]OR[employer] HELPER What to do next Instructions From Your Doctor Please continue with antibiotics for 6 weeks via PICC line. It is important that you have a follow-up cardiac MRI in the outpatient setting, discussed this with the heart doctor at the next appointment. Please continue ampicillin 2 g IV every 4 hours and ceftriaxone 2 g IV every 12 hours, tentative end date March 18, 2024 Please obtain CBC, differential, hepatic panel, renal panel every Wednesday and send results to fax number [phone] Anne Please call Dr. Anne's office for a follow-up appointment in 2-4 weeks, Phone number [phone]. Scheduled Follow-Up Appointments Appointment Type When Where Contact Information StatusEcho - Echocardiogram Adult 08/21/2024 11:00 AM [facility]iology [phone] Confirmed CV OV 09/21/2024 01:15 PM HARI Rosa [facility] [place] Confirmed Follow Up Appointments Follow Up with LINDA ANNE BA, MD, Infectious Disease, Infectious Disease Group When:In 3 weeks Where:[facility] [address] [place] [address] [phone] Additional Information: Schedule appointment as soon as possible Follow Up with Alyson Blank for skilled care, report to [phone] When:Within 1-2 days Follow Up with ESTER BEJARANO When:Within 1-2 days Where:[facility] [address] [place] [address]- Business (1) The Following Activity and Diet Have Been Ordered for You Transfer of Care Activity - Ordered -- Activity As Tolerated, 02/14/24 13:54:00 EDT Transfer of Care Diet - Ordered -- Type of Diet: Cardiac, 02/14/24 13:54:00 EDT The Following Equipment Has Been Ordered for You No qualifying data available. The Following Treatments Have Been Ordered for You Discharge Labs Transfer of Care Labwork - Ordered -- CBC, differential, hepatic panel, renal panel, follow-up within: 1 week, Results Notify to: LINDA ANNE BA, MD, 02/14/24 13:54:00 EDT Discharge Radiology No qualifying data available. Other Therapies Transfer of Care OT - Ordered -- Reason for therapy: General debility, 02/14/24 13:54:00 EDT Transfer of Care PT - Ordered -- Reason for therapy: General debility, 02/14/24 13:54:00 EDT Post Acute Orders Transfer of Care Admission Level of Care - Ordered -- Level of Care SNF, 02/14/24 13:54:16 EDT Transfer of Care Code Status - Ordered -- DNRCC-Arrest Do Not Intubate, Constant Order Transfer of Care Communication Order - Ordered -- Expect less than 30 day stay., 02/14/24 13:57:49 EDT Transfer of Care Labwork - Ordered -- CBC, differential, hepatic panel, renal panel, follow-up within: 1 week, Results Notify to: LINDA ANNE BA, MD, 02/14/24 13:54:00 EDT Transfer of Care Orders Electronically Signed By - Ordered -- 02/14/24 13:54:00 EDT, DRE PHIPPS MD Transfer of Care Prognosis - Ordered -- Fair, Patient Aware: Yes Transfer of Care Rehab Potential - Ordered -- Rehab potential shari, 02/14/24 13:54:16 EDT Someone Will Contact You Regarding These Home Health Referrals No home referrals have been ordered for you. No one will call you. Allergies Macrobid Upset stomach Medications Please ask your primary doctor or pharmacist before taking any other medication not listed, including over the counter drugs, herbal medications, vitamins and or supplements as they may interact with your home medications. What How Much When Instructions Last Dose New acetaminophen 650 Milligram by mouth Every six (6) hours WHILE AWAKE as needed for Pain, scale 1-10 New ampicillin (ampicillin 2 g IVPB injection) IV Piggyback Every 4 hours Stop date March 18, 2024 New cefTRIAXone (cefTRIAXone 2 g injection) IV Push (INT) Every 12 hours Tentative stop date March 18, 2024 New melatonin (melatonin 3 mg oral tablet) 1 tab(s) by mouth Daily at bedtime as needed for Sleep New senna (senna (sennosides) 8.6 mg oral tablet) 1 tab(s) by mouth Two (2) times a day Unchanged aspirin (aspirin 81 mg oral tablet, chewable) 1 tab(s) by mouth Two (2) times a day Duration: 5 Days Unchanged calcium-vitamin D (calcium (as carbonate)-vitamin D 500 mg-200 intl units oral tablet) 1 tab(s) by mouth Every day Unchanged carvedilol (Coreg 3.125 mg oral tablet) 1 tab(s) by mouth Twice daily with meals Unchanged furosemide (Lasix 20 mg oral tablet) 1 tab(s) by mouth Once a day as needed for Swelling Unchanged levothyroxine (levothyroxine 88 mcg (0.088 mg) oral tablet) See instructions 1 tab(s) Oral Mon-Sat Hold Sun Unchanged lovastatin (lovastatin 40 mg oral tablet) 1 tab(s) by mouth Every day Unchanged omeprazole (omeprazole 20 mg oral delayed release capsule) 1 cap by mouth Once a day Unchanged traMADol (traMADol 50 mg oral tablet) 1 tab(s) by mouth Two (2) times a day as needed for for pain PRN Please take this list to your next doctor s visit. Bring all medications you take, including over the counter medications, herbals and other supplements with you to your doctor s visit. Patients and families are reminded to discard old lists and to update any records with all medication providers or retail pharmacies. Education Materials Bacteremia, Adult Bacteremia is the presence of bacteria in the blood. When bacteria enter the bloodstream, they can cause a life-threatening reaction called sepsis. Sepsis is a medical emergency. What are the causes? This condition is caused by bacteria that get into the blood. Bacteria can enter the blood from an infection, including: A skin infection or injury, such as a burn or a cut. A lung infection (pneumonia). An infection in the stomach or intestines. An infection in the bladder or urinary system (urinary tract infection). A bacterial infection in another part of the body that spreads to the blood. Bacteria can also enter the blood during a dental or medical procedure, from bleeding gums, or through use of an unclean needle. What increases the risk? This condition is more likely to develop in children, older adults, and people who have: A long-term (chronic) disease or condition like diabetes or chronic kidney failure. An artificial joint or heart valve, or heart valve disease. A tube inserted to treat a medical condition, such as a urinary catheter or IV. A weak disease-fighting system (immune system). Injected illegal drugs. Been hospitalized for more than 10 days in a row. What are the signs or symptoms? Symptoms of this condition include: Fever and chills. Fast heartbeat and shortness of breath. Dizziness, weakness, and low blood pressure. Confusion or anxiety. Pain in the abdomen, nausea, vomiting, and diarrhea. Bacteremia that has spread to other parts of the body may cause symptoms in those areas. In some cases, there are no symptoms. How is this diagnosed? This condition may be diagnosed with a physical exam and tests, such as: Blood tests to check for bacteria (cultures) or other signs of infection. Tests of any tubes that you have had inserted. These tests check for a source of infection. Urine tests to check for bacteria in the urine. Imaging tests, such as an X-ray, a CT scan, an MRI, or a heart ultrasound. These check for a source of infection in other parts of your body, such as your lungs, heart valves, or joints. How is this treated? This condition is usually treated in the hospital. If you are treated at home, you may need to return to the hospital for medicines, blood tests, and evaluation. Treatment may include: Antibiotic medicines. These may be given by mouth or directly into your blood through an IV. You may need antibiotics for several weeks. At first, you may be given an antibiotic to kill most types of blood bacteria. If tests show that a certain kind of bacteria is causing the problem, you may be given a different antibiotic. IV fluids. Removing any catheter or device that could be a source of infection. Blood pressure and breathing support, if needed. Surgery to control the source or the spread of infection, such as surgery to remove an implanted device, abscess, or infected tissue. Follow these instructions at home: Medicines Take mgno-ojy-fuscoym and prescription medicines only as told by your health care provider. If you were prescribed an antibiotic medicine, take it as told by your health care provider. Do not stop taking the antibiotic even if you start to feel better. General instructions Rest as needed. Ask your health care provider when you may return to normal activities. Drink enough fluid to keep your urine pale yellow. Do not use any products that contain nicotine or tobacco, such as cigarettes, e-cigarettes, and chewing tobacco. If you need help quitting, ask your health care provider. Keep all follow-up visits as told by your health care provider. This is important. How is this prevented? Wash your hands regularly with soap and water. If soap and water are not available, use hand photographic supervisor. You should wash your hands: ? After using the toilet or changing a diaper. ? Before preparing, cooking, serving, or eating food. ? While caring for a sick person or while visiting someone in a hospital. ? Before and after changing bandages (dressings) over wounds. Clean any scrapes or cuts with soap and water and cover them with a clean bandage. Get vaccinations as recommended by your health care provider. Practice good oral hygiene. Waka your teeth two times a day, and floss regularly. Take good care of your skin. This includes bathing and moisturizing on a regular basis. Contact a health care provider if: Your symptoms get worse, and medicines do not help. You have severe pain. Get help right away if you have: Pain. A fever or chills. Trouble breathing. A fast heart rate. Skin that is blotchy, pale, or clammy. Confusion. Weakness. Lack of energy or unusual sleepiness. New symptoms that develop after treatment has started. These symptoms may represent a serious problem that is an emergency. Do not wait to see if the symptoms will go away. Get medical help right away. Call your local emergency services (911 in the [place] Do not drive yourself to the hospital. Summary Bacteremia is the presence of bacteria in the blood. When bacteria enter the bloodstream, they can cause a life-threatening reaction called sepsis. Bacteremia is usually treated with antibiotic medicines in the hospital. If you were prescribed an antibiotic medicine, take it as told by your health care provider. Do not stop taking the antibiotic even if you start to feel better. Get help right away if you have any new symptoms that develop after treatment has started. This information is not intended to replace advice given to you by your health care provider. Make sure you discuss any questions you have with your health care provider. Document Released: 05/09/2007 Document Revised: 12/15/2019 Document Reviewed: 12/15/2019 [employer] Patient Education 2020 [employer] Additional Information VACCINATE! IT SAVES LIVES! Members of the community who have not yet received the COVID-19 vaccine and would like to receive it can visit one of [facility] vaccine clinics. There are many vaccine clinic locations within the [facility]. For locations and available times, please visit https://gettheshot.coronavirus. [place].gov/. It is important to note that some COVID mobile vaccine clinics are held outdoors and may be canceled in rainy or stormy conditions. To learn more about pediatric vaccinations (ages 5-11), we invite you to visit the [facility] webpage. [email or web address]/ [email or web address] gvwtmxrl-Bxzco-Zvsflsene.html To learn more about the COVID-19 vaccine, we invite you to visit the CDC website for a list of frequently asked questions.https://www.cdc.gov/c oronavirus/2019-ncov/vaccines/f aq.html [facility] Patient Portal Access Instructions: Stay connected with your healthcare team and access your personal medical information anytime with the [facility] Patient Portal. Please follow the directions below to create your [facility] account: 1.Access the email account you provided upon registration to the hospital/physician office.2.Look for an invitation email from [facility].3.Open the email and access the invitation link: Accept Invitation to [facility].4.Fill in the required martinez to create your account. To access your account, visit [email or web address]. Click the blue button labeled Access Patient Portal and then log in with the username and password that you created in the steps above. You will be able to view your test results, lab results, a summary of your visits, upcoming appointments and more. There is also a convenient messaging option where you can send secure messages to your provider. In addition, you will have the ability to download any documents or summaries to your computer and/or send the information securely to a physician. Remember that your healthcare information is confidential, so carefully consider who you will allow to register on the [facility] [employer] [facility] Patient Portal for access to your information. You can also access the [facility] Patient Portal on the [facility] guille. Simply click on Patient Portal and then log into your account. If you would like to receive a full copy of your medical records, please contact the [facility] Medical Records Department by calling [phone], Wednesday through Wednesday between 8 a.m. and 4:30 p.m. HOW TO SAFELY DISPOSE OF PRESCRIPTION MEDICATIONS Please use one of the following methods to safely dispose of your unused medications. 1.Use a drug disposal kit: the drug disposal pouch allows you to safely discard your old and unused drugs. Ask your nurse to give you one when you are discharged.2.Visit a local take-back location: Many local pharmacies and police departments have programs that collect old and unwanted prescription drugs. Call your local pharmacy or go to http://Snugg Home.ReelBig/2J4Ra4d to find one close to you.3.Make use of household items: Use cat litter or old coffee grounds to dispose medications if other options are not available. Mix your drugs with these household products, seal them in an airtight container and throw it into the garbage. Call [place]: [phone] to be sure your drugs can be disposed of in this way. Some medicines may require a different approach.4.Never flush your medications down the toilet. IF YOU HAVE BEEN PRESCRIBED AN OPIOID FOR PAIN If you have been prescribed an opioid (such as hydrocodone, oxycodone or morphine), it is critical to understand the possible side effects and risks of opioid pain medications. Even when taken as directed, opioids can have several side effects including: Tolerance, meaning you might need to take more of a medication for the same pain relief. Nausea, vomiting and/or constipation. Sleepiness, dizziness, dry mouth, confusion, depression or itching. Physical dependence, meaning you have withdrawal symptoms when a medication is stopped, can develop within a few days. KNOW YOUR RESPONSIBILITIES It is important to know exactly how much and how often to take the opioid pain medications you are prescribed. Never take opioids in higher amounts or more often than prescribed. Do not combine opioids with alcohol or other drugs that cause drowsiness, such as benzodiazepines, also known as benzos, including diazepam and alprazolam, muscle relaxants or sleep aids. Never sell or share prescription opioids. This is illegal. Store opioids in a secure place and out of reach of others (including children, family, friends and visitors). The last page of this document has been signed and retained as a CHART COPY. Signatures Patient Education Materials Bacteremia, Adult Medication Leaflets My discharge plan and instructions have been reviewed and explained to me and I,STEFANO WASHINGTON S understand my current condition and have read and understand these discharge instructions. I have received a written copy of the plan/instructions. If I have questions, I am aware that I should contact my doctor. Patient/Supervisor Research Kennel Signature: Date/Time: Relationship to Patient: Witness Name/Signature: Date/Time: [facility] 02-14-2024 Note Discharge Instructions Thank you for allowing [place] to assist you with your healthcare needs. The following is important discharge information regarding your hospital visit. Your Care Team ESTER BEJARANO MSN, MONORAIL HELPER What to do next Instructions From Your Doctor Please continue with antibiotics for 6 weeks via PICC line. It is important that you have a follow-up cardiac MRI in the outpatient setting, discussed this with the heart doctor at the next appointment. Please continue ampicillin 2 g IV every 4 hours and ceftriaxone 2 g IV every 12 hours, tentative end date March 18, 2024 Please obtain CBC, differential, hepatic panel, renal panel every Wednesday and send results to fax number [phone] Anne Please call Dr. Anne's office for a follow-up appointment in 2-4 weeks, Phone number [phone]. Scheduled Follow-Up Appointments Appointment Type When Where Contact Information StatusEcho - Echocardiogram Adult 08/21/2024 11:00 AM [facility] Radiology [phone] Confirmed CV OV 09/21/2024 01:15 PM [facility] Heart & Vascular [facility] [place] Confirmed Follow Up Appointments Follow Up with LINDA ANNE BA, MD, Infectious Disease, Infectious Disease Group When:In 3 weeks Where:[facility] [place] [address] [place] [address]- [phone] Additional Information: Schedule appointment as soon as possible Follow Up with [facility], report to [phone] When:Within 1-2 days Follow Up with ESTER BEJARANO When:Within 1-2 days Where:[address] [address]- [facility] (1) The Following Activity and Diet Have Been Ordered for You Transfer of Care Activity - Ordered -- Activity As Tolerated, 02/14/24 13:54:00 EDT Transfer of Care Diet - Ordered -- Type of Diet: Cardiac, 02/14/24 13:54:00 EDT The Following Equipment Has Been Ordered for You No qualifying data available. The Following Treatments Have Been Ordered for You Discharge Labs Transfer of Care Labwork - Ordered -- CBC, differential, hepatic panel, renal panel, follow-up within: 1 week, Results Notify to: LINDA ANNE BA, MD, 02/14/24 13:54:00 EDT Discharge Radiology No qualifying data available. Other Therapies Transfer of Care OT - Ordered -- Reason for therapy: General debility, 02/14/24 13:54:00 EDT Transfer of Care PT - Ordered -- Reason for therapy: General debility, 02/14/24 13:54:00 EDT Post Acute Orders Transfer of Care Admission Level of Care - Ordered -- Level of Care SNF, 02/14/24 13:54:16 EDT Transfer of Care Code Status - Ordered -- DNRCC-Arrest Do Not Intubate, Constant Order Transfer of Care Communication Order - Ordered -- Expect less than 30 day stay., 02/14/24 13:57:49 EDT Transfer of Care Labwork - Ordered -- CBC, differential, hepatic panel, renal panel, follow-up within: 1 week, Results Notify to: LINDA ANNE BA, MD, 02/14/24 13:54:00 EDT Transfer of Care Orders Electronically Signed By - Ordered -- 02/14/24 13:54:00 EDT, DRE PHIPSP MD Transfer of Care Prognosis - Ordered -- Fair, Patient Aware: Yes Transfer of Care Rehab Potential - Ordered -- Rehab potential fair, 02/14/24 13:54:16 EDT Someone Will Contact You Regarding These Home Health Referrals No home referrals have been ordered for you. No one will call you. Allergies Macrobid Upset stomach Medications Please ask your primary doctor or pharmacist before taking any other medication not listed, including over the counter drugs, herbal medications, vitamins and or supplements as they may interact with your home medications. What How Much When Instructions Last Dose New acetaminophen 650 Milligram by mouth Every six (6) hours WHILE AWAKE as needed for Pain, scale 1-10 New ampicillin (ampicillin 2 g IVPB injection) IV Piggyback Every 4 hours Stop date March 18, 2024 New cefTRIAXone (cefTRIAXone 2 g injection) IV Push (INT) Every 12 hours Tentative stop date March 18, 2024 New melatonin (melatonin 3 mg oral tablet) 1 tab(s) by mouth Daily at bedtime as needed for Sleep New senna (senna (sennosides) 8.6 mg oral tablet) 1 tab(s) by mouth Two (2) times a day Unchanged aspirin (aspirin 81 mg oral tablet, chewable) 1 tab(s) by mouth Two (2) times a day Duration: 5 Days Unchanged calcium-vitamin D (calcium (as carbonate)-vitamin D 500 mg-200 intl units oral tablet) 1 tab(s) by mouth Every day Unchanged carvedilol (Coreg 3.125 mg oral tablet) 1 tab(s) by mouth Twice daily with meals Unchanged furosemide (Lasix 20 mg oral tablet) 1 tab(s) by mouth Once a day as needed for Swelling Unchanged levothyroxine (levothyroxine 88 mcg (0.088 mg) oral tablet) See instructions 1 tab(s) Oral Mon-Sat Hold Sun Unchanged lovastatin (lovastatin 40 mg oral tablet) 1 tab(s) by mouth Every day Unchanged omeprazole (omeprazole 20 mg oral delayed release capsule) 1 cap by mouth Once a day Unchanged traMADol (traMADol 50 mg oral tablet) 1 tab(s) by mouth Two (2) times a day as needed for for pain PRN Please take this list to your next doctor s visit. Bring all medications you take, including over the counter medications, herbals and other supplements with you to your doctor s visit. Patients and families are reminded to discard old lists and to update any records with all medication providers or retail pharmacies. Education Materials Bacteremia, Adult Bacteremia is the presence of bacteria in the blood. When bacteria enter the bloodstream, they can cause a life-threatening reaction called sepsis. Sepsis is a medical emergency. What are the causes? This condition is caused by bacteria that get into the blood. Bacteria can enter the blood from an infection, including: A skin infection or injury, such as a burn or a cut. A lung infection (pneumonia). An infection in the stomach or intestines. An infection in the bladder or urinary system (urinary tract infection). A bacterial infection in another part of the body that spreads to the blood. Bacteria can also enter the blood during a dental or medical procedure, from bleeding gums, or through use of an unclean needle. What increases the risk? This condition is more likely to develop in children, older adults, and people who have: A long-term (chronic) disease or condition like diabetes or chronic kidney failure. An artificial joint or heart valve, or heart valve disease. A tube inserted to treat a medical condition, such as a urinary catheter or IV. A weak disease-fighting system (immune system). Injected illegal drugs. Been hospitalized for more than 10 days in a row. What are the signs or symptoms? Symptoms of this condition include: Fever and chills. Fast heartbeat and shortness of breath. Dizziness, weakness, and low blood pressure. Confusion or anxiety. Pain in the abdomen, nausea, vomiting, and diarrhea. Bacteremia that has spread to other parts of the body may cause symptoms in those areas. In some cases, there are no symptoms. How is this diagnosed? This condition may be diagnosed with a physical exam and tests, such as: Blood tests to check for bacteria (cultures) or other signs of infection. Tests of any tubes that you have had inserted. These tests check for a source of infection. Urine tests to check for bacteria in the urine. Imaging tests, such as an X-ray, a CT scan, an MRI, or a heart ultrasound. These check for a source of infection in other parts of your body, such as your lungs, heart valves, or joints. How is this treated? This condition is usually treated in the hospital. If you are treated at home, you may need to return to the hospital for medicines, blood tests, and evaluation. Treatment may include: Antibiotic medicines. These may be given by mouth or directly into your blood through an IV. You may need antibiotics for several weeks. At first, you may be given an antibiotic to kill most types of blood bacteria. If tests show that a certain kind of bacteria is causing the problem, you may be given a different antibiotic. IV fluids. Removing any catheter or device that could be a source of infection. Blood pressure and breathing support, if needed. Surgery to control the source or the spread of infection, such as surgery to remove an implanted device, abscess, or infected tissue. Follow these instructions at home: Medicines Take ejrd-ttk-gewnmdy and prescription medicines only as told by your health care provider. If you were prescribed an antibiotic medicine, take it as told by your health care provider. Do not stop taking the antibiotic even if you start to feel better. General instructions Rest as needed. Ask your health care provider when you may return to normal activities. Drink enough fluid to keep your urine pale yellow. Do not use any products that contain nicotine or tobacco, such as cigarettes, e-cigarettes, and chewing tobacco. If you need help quitting, ask your health care provider. Keep all follow-up visits as told by your health care provider. This is important. How is this prevented? Wash your hands regularly with soap and water. If soap and water are not available, use hand photographic supervisor. You should wash your hands: ? After using the toilet or changing a diaper. ? Before preparing, cooking, serving, or eating food. ? While caring for a sick person or while visiting someone in a hospital. ? Before and after changing bandages (dressings) over wounds. Clean any scrapes or cuts with soap and water and cover them with a clean bandage. Get vaccinations as recommended by your health care provider. Practice good oral hygiene. Waka your teeth two times a day, and floss regularly. Take good care of your skin. This includes bathing and moisturizing on a regular basis. Contact a health care provider if: Your symptoms get worse, and medicines do not help. You have severe pain. Get help right away if you have: Pain. A fever or chills. Trouble breathing. A fast heart rate. Skin that is blotchy, pale, or clammy. Confusion. Weakness. Lack of energy or unusual sleepiness. New symptoms that develop after treatment has started. These symptoms may represent a serious problem that is an emergency. Do not wait to see if the symptoms will go away. Get medical help right away. Call your local emergency services (911 in the [place] Do not drive yourself to the hospital. Summary Bacteremia is the presence of bacteria in the blood. When bacteria enter the bloodstream, they can cause a life-threatening reaction called sepsis. Bacteremia is usually treated with antibiotic medicines in the hospital. If you were prescribed an antibiotic medicine, take it as told by your health care provider. Do not stop taking the antibiotic even if you start to feel better. Get help right away if you have any new symptoms that develop after treatment has started. This information is not intended to replace advice given to you by your health care provider. Make sure you discuss any questions you have with your health care provider. Document Released: 05/09/2007 Document Revised: 12/15/2019 Document Reviewed: 12/15/2019 [employer] Patient Education 2020 [employer] Additional Information VACCINATE! IT SAVES LIVES! Members of the community who have not yet received the COVID-19 vaccine and would like to receive it can visit one of [facility] vaccine clinics. There are many vaccine clinic locations within the [facility]. For locations and available times, please visit https://gettheshot.coronavirus. [place].gov/. It is important to note that some COVID mobile vaccine clinics are held outdoors and may be canceled in rainy or stormy conditions. To learn more about pediatric vaccinations (ages 5-11), we invite you to visit the [facility] webpage. [email or web address].[email or web address].[email or web address]/ [email or web address]-Buzzg-Fwphisdjvxe-Fr unlfvazn-Hovsf-Iedtjnksg.html To learn more about the COVID-19 vaccine, we invite you to visit the CDC website for a list of frequently asked questions.https://www.cdc.gov/c oronavirus/2019-ncov/vaccines/f aq.html [facility] Patient Portal Access Instructions: Stay connected with your healthcare team and access your personal medical information anytime with the [facility] Patient Portal. Please follow the directions below to create your [facility] account: 1.Access the email account you provided upon registration to the hospital/physician office.2.Look for an invitation email from [facility].3.Open the email and access the invitation link: Accept Invitation to [facility].4.Fill in the required martinez to create your account. To access your account, visit [employer]. Click the blue button labeled Access Patient Portal and then log in with the username and password that you created in the steps above. You will be able to view your test results, lab results, a summary of your visits, upcoming appointments and more. There is also a convenient messaging option where you can send secure messages to your provider. In addition, you will have the ability to download any documents or summaries to your computer and/or send the information securely to a physician. Remember that your healthcare information is confidential, so carefully consider who you will allow to register on the [facility] Patient Portal for access to your information. You can also access the [facility] Patient Portal on the [employer] guille. Simply click on Patient Portal and then log into your account. If you would like to receive a full copy of your medical records, please contact the [facility] Medical Records Department by calling [phone], Wednesday through Wednesday between 8 a.m. and 4:30 p.m. HOW TO SAFELY DISPOSE OF PRESCRIPTION MEDICATIONS Please use one of the following methods to safely dispose of your unused medications. 1.Use a drug disposal kit: the drug disposal pouch allows you to safely discard your old and unused drugs. Ask your nurse to give you one when you are discharged.2.Visit a local take-back location: Many local pharmacies and police departments have programs that collect old and unwanted prescription drugs. Call your local pharmacy or go to http://Snugg Home.ReelBig/8K9Kd0o to find one close to you.3.Make use of household items: Use cat litter or old coffee grounds to dispose medications if other options are not available. Mix your drugs with these household products, seal them in an airtight container and throw it into the garbage. Call [place]: [phone] to be sure your drugs can be disposed of in this way. Some medicines may require a different approach.4.Never flush your medications down the toilet. IF YOU HAVE BEEN PRESCRIBED AN OPIOID FOR PAIN If you have been prescribed an opioid (such as hydrocodone, oxycodone or morphine), it is critical to understand the possible side effects and risks of opioid pain medications. Even when taken as directed, opioids can have several side effects including: Tolerance, meaning you might need to take more of a medication for the same pain relief. Nausea, vomiting and/or constipation. Sleepiness, dizziness, dry mouth, confusion, depression or itching. Physical dependence, meaning you have withdrawal symptoms when a medication is stopped, can develop within a few days. KNOW YOUR RESPONSIBILITIES It is important to know exactly how much and how often to take the opioid pain medications you are prescribed. Never take opioids in higher amounts or more often than prescribed. Do not combine opioids with alcohol or other drugs that cause drowsiness, such as benzodiazepines, also known as benzos, including diazepam and alprazolam, muscle relaxants or sleep aids. Never sell or share prescription opioids. This is illegal. Store opioids in a secure place and out of reach of others (including children, family, friends and visitors). The last page of this document has been signed and retained as a CHART COPY. Signatures Patient Education Materials Bacteremia, Adult Medication Leaflets My discharge plan and instructions have been reviewed and explained to me and I,STEFANO WASHINGTON understand my current condition and have read and understand these discharge instructions. I have received a written copy of the plan/instructions. If I have questions, I am aware that I should contact my doctor. Patient/Supervisor Research Kennel Signature: Date/Time: Relationship to Patient: Witness Name/Signature: Date/Time: [facility] 02-14-2024 Note Discharge Instructions Thank you for allowing [facility] to assist you with your healthcare needs. The following is important discharge information regarding your hospital visit. Your Care Team ESTER BEJARANO, MONORAIL HELPER What to do next Instructions From Your Doctor Please continue with antibiotics for 6 weeks via PICC line. It is important that you have a follow-up cardiac MRI in the outpatient setting, discussed this with the heart doctor at the next appointment. Please continue ampicillin 2 g IV every 4 hours and ceftriaxone 2 g IV every 12 hours, tentative end date March 18, 2024 Please obtain CBC, differential, hepatic panel, renal panel every Wednesday and send results to fax number [phone] Anne Please call Dr. Anne's office for a follow-up appointment in 2-4 weeks, Phone number [phone]. Scheduled Follow-Up Appointments Appointment Type When Where Contact Information StatusEcho - Echocardiogram Adult 08/21/2024 11:00 AM [facility] Radiology [phone] Confirmed CV OV 09/21/2024 01:15 PM [facility]ments Follow Up with LINDA ANNE BA, MD, Infectious Disease, Infectious Disease Group When:In 3 weeks Where:[facility] [place] [address] [place] [address]- [phone] Additional Information: Schedule appointment as soon as possible Follow Up with [facility], report to [phone] When:Within 1-2 days Follow Up with ESTER BEJARANO When:Within 1-2 days Where:[facility] [address] [id number]- Business (1) The Following Activity and Diet Have Been Ordered for You Transfer of Care Activity - Ordered -- Activity As Tolerated, 02/14/24 13:54:00 EDT Transfer of Care Diet - Ordered -- Type of Diet: Cardiac, 02/14/24 13:54:00 EDT The Following Equipment Has Been Ordered for You No qualifying data available. The Following Treatments Have Been Ordered for You Discharge Labs Transfer of Care Labwork - Ordered -- CBC, differential, hepatic panel, renal panel, follow-up within: 1 week, Results Notify to: LINDA ANNE BA, MD, 02/14/24 13:54:00 EDT Discharge Radiology No qualifying data available. Other Therapies Transfer of Care OT - Ordered -- Reason for therapy: General debility, 02/14/24 13:54:00 EDT Transfer of Care PT - Ordered -- Reason for therapy: General debility, 02/14/24 13:54:00 EDT Post Acute Orders Transfer of Care Admission Level of Care - Ordered -- Level of Care SNF, 02/14/24 13:54:16 EDT Transfer of Care Code Status - Ordered -- DNRCC-Arrest Do Not Intubate, Constant Order Transfer of Care Communication Order - Ordered -- Expect less than 30 day stay., 02/14/24 13:57:49 EDT Transfer of Care Labwork - Ordered -- CBC, differential, hepatic panel, renal panel, follow-up within: 1 week, Results Notify to: LINDA ANNE BA, MD, 02/14/24 13:54:00 EDT Transfer of Care Orders Electronically Signed By - Ordered -- 02/14/24 13:54:00 EDTDESIRE DEEPAK MD Transfer of Care Prognosis - Ordered -- Fair, Patient Aware: Yes Transfer of Care Rehab Potential - Ordered -- Rehab potential fair, 02/14/24 13:54:16 EDT Someone Will Contact You Regarding These Home Health Referrals No home referrals have been ordered for you. No one will call you. Allergies Macrobid Upset stomach Medications Please ask your primary doctor or pharmacist before taking any other medication not listed, including over the counter drugs, herbal medications, vitamins and or supplements as they may interact with your home medications. What How Much When Instructions Last Dose New acetaminophen 650 Milligram by mouth Every six (6) hours WHILE AWAKE as needed for Pain, scale 1-10 New ampicillin (ampicillin 2 g IVPB injection) IV Piggyback Every 4 hours Stop date March 18, 2024 New cefTRIAXone (cefTRIAXone 2 g injection) IV Push (INT) Every 12 hours Tentative stop date March 18, 2024 New melatonin (melatonin 3 mg oral tablet) 1 tab(s) by mouth Daily at bedtime as needed for Sleep New senna (senna (sennosides) 8.6 mg oral tablet) 1 tab(s) by mouth Two (2) times a day Unchanged aspirin (aspirin 81 mg oral tablet, chewable) 1 tab(s) by mouth Two (2) times a day Duration: 5 Days Unchanged calcium-vitamin D (calcium (as carbonate)-vitamin D 500 mg-200 intl units oral tablet) 1 tab(s) by mouth Every day Unchanged carvedilol (Coreg 3.125 mg oral tablet) 1 tab(s) by mouth Twice daily with meals Unchanged furosemide (Lasix 20 mg oral tablet) 1 tab(s) by mouth Once a day as needed for Swelling Unchanged levothyroxine (levothyroxine 88 mcg (0.088 mg) oral tablet) See instructions 1 tab(s) Oral Mon-Sat Hold Sun Unchanged lovastatin (lovastatin 40 mg oral tablet) 1 tab(s) by mouth Every day Unchanged omeprazole (omeprazole 20 mg oral delayed release capsule) 1 cap by mouth Once a day Unchanged traMADol (traMADol 50 mg oral tablet) 1 tab(s) by mouth Two (2) times a day as needed for for pain PRN Please take this list to your next doctor s visit. Bring all medications you take, including over the counter medications, herbals and other supplements with you to your doctor s visit. Patients and families are reminded to discard old lists and to update any records with all medication providers or retail pharmacies. Education Materials Bacteremia, Adult Bacteremia is the presence of bacteria in the blood. When bacteria enter the bloodstream, they can cause a life-threatening reaction called sepsis. Sepsis is a medical emergency. What are the causes? This condition is caused by bacteria that get into the blood. Bacteria can enter the blood from an infection, including: A skin infection or injury, such as a burn or a cut. A lung infection (pneumonia). An infection in the stomach or intestines. An infection in the bladder or urinary system (urinary tract infection). A bacterial infection in another part of the body that spreads to the blood. Bacteria can also enter the blood during a dental or medical procedure, from bleeding gums, or through use of an unclean needle. What increases the risk? This condition is more likely to develop in children, older adults, and people who have: A long-term (chronic) disease or condition like diabetes or chronic kidney failure. An artificial joint or heart valve, or heart valve disease. A tube inserted to treat a medical condition, such as a urinary catheter or IV. A weak disease-fighting system (immune system). Injected illegal drugs. Been hospitalized for more than 10 days in a row. What are the signs or symptoms? Symptoms of this condition include: Fever and chills. Fast heartbeat and shortness of breath. Dizziness, weakness, and low blood pressure. Confusion or anxiety. Pain in the abdomen, nausea, vomiting, and diarrhea. Bacteremia that has spread to other parts of the body may cause symptoms in those areas. In some cases, there are no symptoms. How is this diagnosed? This condition may be diagnosed with a physical exam and tests, such as: Blood tests to check for bacteria (cultures) or other signs of infection. Tests of any tubes that you have had inserted. These tests check for a source of infection. Urine tests to check for bacteria in the urine. Imaging tests, such as an X-ray, a CT scan, an MRI, or a heart ultrasound. These check for a source of infection in other parts of your body, such as your lungs, heart valves, or joints. How is this treated? This condition is usually treated in the hospital. If you are treated at home, you may need to return to the hospital for medicines, blood tests, and evaluation. Treatment may include: Antibiotic medicines. These may be given by mouth or directly into your blood through an IV. You may need antibiotics for several weeks. At first, you may be given an antibiotic to kill most types of blood bacteria. If tests show that a certain kind of bacteria is causing the problem, you may be given a different antibiotic. IV fluids. Removing any catheter or device that could be a source of infection. Blood pressure and breathing support, if needed. Surgery to control the source or the spread of infection, such as surgery to remove an implanted device, abscess, or infected tissue. Follow these instructions at home: Medicines Take [id number]-uhvizkc and prescription medicines only as told by your health care provider. If you were prescribed an antibiotic medicine, take it as told by your health care provider. Do not stop taking the antibiotic even if you start to feel better. General instructions Rest as needed. Ask your health care provider when you may return to normal activities. Drink enough fluid to keep your urine pale yellow. Do not use any products that contain nicotine or tobacco, such as cigarettes, e-cigarettes, and chewing tobacco. If you need help quitting, ask your health care provider. Keep all follow-up visits as told by your health care provider. This is important. How is this prevented? Wash your hands regularly with soap and water. If soap and water are not available, use hand photographic supervisor. You should wash your hands: ? After using the toilet or changing a diaper. ? Before preparing, cooking, serving, or eating food. ? While caring for a sick person or while visiting someone in a hospital. ? Before and after changing bandages (dressings) over wounds. Clean any scrapes or cuts with soap and water and cover them with a clean bandage. Get vaccinations as recommended by your health care provider. Practice good oral hygiene. Waka your teeth two times a day, and floss regularly. Take good care of your skin. This includes bathing and moisturizing on a regular basis. Contact a health care provider if: Your symptoms get worse, and medicines do not help. You have severe pain. Get help right away if you have: Pain. A fever or chills. Trouble breathing. A fast heart rate. Skin that is blotchy, pale, or clammy. Confusion. Weakness. Lack of energy or unusual sleepiness. New symptoms that develop after treatment has started. These symptoms may represent a serious problem that is an emergency. Do not wait to see if the symptoms will go away. Get medical help right away. Call your local emergency services (911 in the [place] Do not drive yourself to the hospital. Summary Bacteremia is the presence of bacteria in the blood. When bacteria enter the bloodstream, they can cause a life-threatening reaction called sepsis. Bacteremia is usually treated with antibiotic medicines in the hospital. If you were prescribed an antibiotic medicine, take it as told by your health care provider. Do not stop taking the antibiotic even if you start to feel better. Get help right away if you have any new symptoms that develop after treatment has started. This information is not intended to replace advice given to you by your health care provider. Make sure you discuss any questions you have with your health care provider. Document Released: 05/09/2007 Document Revised: 12/15/2019 Document Reviewed: 12/15/2019 Elsevier Patient Education 2020 [employer] Additional Information VACCINATE! IT SAVES LIVES! Members of the community who have not yet received the COVID-19 vaccine and would like to receive it can visit one of [facility] vaccine clinics. There are many vaccine clinic locations within the [facility]. For locations and available times, please visit https://gettheshot.coronavirus. [place].gov/. It is important to note that some COVID mobile vaccine clinics are held outdoors and may be canceled in rainy or stormy conditions. To learn more about pediatric vaccinations (ages 5-11), we invite you to visit the [facility] webpage. https://www.[facility].org/ pages/2006-Hlqoy-Gyhjrloxrjm-Fr jksoiady-Gjaiu-Hxgtkajhe.html To learn more about the COVID-19 vaccine, we invite you to visit the CDC website for a list of frequently asked questions.https://www.cdc.gov/c oronavirus/2019-ncov/vaccines/f aq.html [facility] Patient Portal Access Instructions: Stay connected with your healthcare team and access your personal medical information anytime with the [facility] Patient Portal. Please follow the directions below to create your [facility] account: 1.Access the email account you provided upon registration to the hospital/physician office.2.Look for an invitation email from [facility].3.Open the email and access the invitation link: Accept Invitation to [facility].4.Fill in the required martinez to create your account. To access your account, visit [employer]. Click the blue button labeled Access Patient Portal and then log in with the username and password that you created in the steps above. You will be able to view your test results, lab results, a summary of your visits, upcoming appointments and more. There is also a convenient messaging option where you can send secure messages to your provider. In addition, you will have the ability to download any documents or summaries to your computer and/or send the information securely to a physician. Remember that your healthcare information is confidential, so carefully consider who you will allow to register on the [facility] Patient Portal for access to your information. You can also access the [facility] on the [place] [facility]am[facility] guille. Simply click on Patient Portal and then log into your account. If you would like to receive a full copy of your medical records, please contact the [facility] Medical Records Department by calling [phone], Wednesday through Wednesday between 8 a.m. and 4:30 p.m. HOW TO SAFELY DISPOSE OF PRESCRIPTION MEDICATIONS Please use one of the following methods to safely dispose of your unused medications. 1.Use a drug disposal kit: the drug disposal pouch allows you to safely discard your old and unused drugs. Ask your nurse to give you one when you are discharged.2.Visit a local take-back location: Many local pharmacies and police departments have programs that collect old and unwanted prescription drugs. Call your local pharmacy or go to http://Snugg Home.ReelBig/8I6In3p to find one close to you.3.Make use of household items: Use cat litter or old coffee grounds to dispose medications if other options are not available. Mix your drugs with these household products, seal them in an airtight container and throw it into the garbage. Call [place]: [phone] to be sure your drugs can be disposed of in this way. Some medicines may require a different approach.4.Never flush your medications down the toilet. IF YOU HAVE BEEN PRESCRIBED AN OPIOID FOR PAIN If you have been prescribed an opioid (such as hydrocodone, oxycodone or morphine), it is critical to understand the possible side effects and risks of opioid pain medications. Even when taken as directed, opioids can have several side effects including: Tolerance, meaning you might need to take more of a medication for the same pain relief. Nausea, vomiting and/or constipation. Sleepiness, dizziness, dry mouth, confusion, depression or itching. Physical dependence, meaning you have withdrawal symptoms when a medication is stopped, can develop within a few days. KNOW YOUR RESPONSIBILITIES It is important to know exactly how much and how often to take the opioid pain medications you are prescribed. Never take opioids in higher amounts or more often than prescribed. Do not combine opioids with alcohol or other drugs that cause drowsiness, such as benzodiazepines, also known as benzos, including diazepam and alprazolam, muscle relaxants or sleep aids. Never sell or share prescription opioids. This is illegal. Store opioids in a secure place and out of reach of others (including children, family, friends and visitors). The last page of this document has been signed and retained as a CHART COPY. Signatures Patient Education Materials Bacteremia, Adult Medication Leaflets My discharge plan and instructions have been reviewed and explained to me and I,STEFANO WASHINGTON understand my current condition and have read and understand these discharge instructions. I have received a written copy of the plan/instructions. If I have questions, I am aware that I should contact my doctor. Patient/Supervisor Research Kennel Signature: Date/Time: Relationship to Patient: Witness Name/Signature: Date/Time: [facility] 02-13-2024 Note Date of Service 02/13/2024 Subjective Resting in bed, ate breakfast and lunch today without difficulty. Has been working with therapy here in the hospital, did receive a PICC line yesterday this appears to be functional. No fever or chills. Blood pressure is optimal currently. Saturating well on room air. Objective Vitals and Measurements T: 36.7 C (Oral) TMIN: 36.6 C (Oral) TMAX: 36.7 C (Oral) HR: 74 RR: 24 BP: 119/44 SpO2: 95% Intake and Output 7AM Yesterday to 7AM Today Intake and Output (Last 24 hours) Intake Oral Intake 780.00 Output Urinary Catheter Output: 850.00 Stool Count 0.00 Diaper Count 2.00 Total Summary Total Intake 780.00 Total Output 850.00 Fluid Balance -70.00 Physical Exam Weight Dosing Weight: 76.8 kg (02/05/24) Dosing Weight: 76.8 kg (02/05/24) Medications Medications (16) Active Scheduled: (10) ampicillin in NS 100mL 2 gram(s) 100 mL, IV Piggyback, q4h aspirin 81 mg Chewable 81 mg 1 tab(s), Oral, BID atorvastatin 10 mg tablet 10 mg 1 tab(s), Oral, qHS carvedilol 3.125 mg tablet 3.125 mg 1 tab(s), Oral, BIDM cefTRIAXone IVP syringe 2 gram(s) 20 mL, IV Push (INT), q12h levothyroxine 88 mcg tablet 88 mcg 1 tab(s), Oral, Wed//Wed//Wed levothyroxine 88 mcg tablet 88 mcg 1 tab(s), Oral, Wednesday lidocaine 1% (MPF) 2 mL vial pf 30 mg 3 mL, Intradermal, prep pharm omeprazole [address] capsule 20 mg 1 cap(s), Oral, qDay senna 8.6 mg Tablet 8.6 mg 1 tab(s), Oral, BID Continuous: (0) PRN: (6) acetaminophen 325 mg Tablet 650 mg 2 tab(s), Oral, q6hWA dextrose 50% Solution Disp syringe 50 mL 12.5 gram(s) 25 mL, IV Push, AsDirected melatonin 3 mg tablet 3 mg 1 tab(s), Oral, qHS melatonin 3 mg tablet 3 mg 1 tab(s), Oral, qHS ondansetron 2 mg/ 1 mL 2 mL INJ 4 mg 2 mL, IV Push, q4h tramadol 50 mg Tablet 50 mg 1 tab(s), Oral, BID Lab Results No 36 Hour Lab Data EKG No qualifying data available. Assessment/Plan Enterococcus faecalis bacteremia Small mobile filiform echodensity at the aortic valve, highly suspicious for aortic valve endocarditis with no other suspected source Status post PICC line 02/11/2024 Urinary retention, improved Generalized weakness Pulmonary hypertension with RVSP of 32 Known history of hypothyroidism, hypertension, hyperlipidemia, GERD, aortic stenosis Plan: At this time, patient is on IV antibiotics as per recommendations by ID. Repeat blood cultures from couple days ago with no growth to date. Responding well to antibiotics. TTE without any evidence that is definitive of any aortic valve vegetation although does state that there is some mobile filiform echodensity. Therefore SALAZAR is being pursued, unfortunately due to patient's cervical/spinal pathology, views were difficult to obtain and therefore SALAZAR was aborted. Patient was recommended to have other modality of imaging to check for the aortic valve abnormality. Discussed with cardiology as well as ID, based on patient's preference, decision was made to treat for 6 weeks with IV antibiotics, awaiting PICC line placement. This is under the impression that she does have aortic valve endocarditis. She would need follow-up cardiac MRI in the outpatient setting. Will follow-up with cardiology as well as ID. Please continue ampicillin 2 g IV every 4 hours and ceftriaxone 2 g IV every 12 hours, tentative end date March 18, 2024 Please obtain CBC, differential, hepatic panel, renal panel every Wednesday and send results to fax number [phone] Anne Please call Dr. Anne's office for a follow-up appointment in 2-4 weeks, Phone number [phone]. PICC line placed 02/11/2024. Functioning well. Regards to the patient's retention: Appears to have some symptoms of constipation, which is now improved. Allen catheter removed Resume home medications as deemed appropriate. Point of contact: Patient's daughter Stefano: [phone] Above plan of care was discussed with the patient at bedside, all questions answered appropriately. This is a note transcribed by me, the attending physician on service using the 'Present[employer]' dictation software. Please excuse any grammatical errors, repetitions/duplications if any are present in the entirety of this note. Thank you. Anticipated Date of Discharge Awaiting pre-CERT, hopeful discharge tomorrow Digitally Signed by DRE PHIPPS MD on 02/13/2024 08:09 PM [facility] 02-13-2024 Cardiology Progress note Date of Service 02/08/2024 Chief Complaint Enterococcus faecalis bacteremia Subjective Patient seen and assessed at bedside. Sitting up in chair. No acute events overnight. Objective Vitals and Measurements T: 36.5 C (Oral) TMIN: 36.4 C (Oral) TMAX: 36.5 C (Oral) HR: 82 (Monitored) RR: 18 BP: 120/50 SpO2: 93% Intake and Output 7AM Yesterday to 7AM Today Intake and Output (Last 24 hours) Intake Oral Intake 168.00 Output Urinary Catheter Output: 1200.00 Stool Count 2.00 Total Summary Total Intake 168.00 Total Output 1200.00 Fluid Balance -1032.00 Physical Exam General Appearance: Alert and oriented, in no acute distress. Sitting up in chair. Head: Normocephalic, atraumatic EENT: PERRLA, EOMI, no conjunctival injection, sclera anicteric. Neck: Supple, symmetric. Cardiac: S1 and S2 normal. RRR. Systolic aortic murmur. No JVD. Lungs: Clear to auscultation bilaterally. No wheezes, rhonchi, or crackles. Abdomen: Soft, nondistended, nontender. Normoactive bowel sounds. Musculoskeletal: Full range of motion in spine, upper and lower extremities. Extremities: No cyanosis, clubbing, or lower extremity pitting edema. 2+ radial and pedal pulses bilaterally in all extremities. Neurological: CN II to XII grossly intact. Skin: Warm, dry, well-perfused. Psychiatric: Appropriate mood and affect. Weight Dosing Weight: 76.8 kg (02/05/24) Dosing Weight: 76.8 kg (02/05/24) Medications Medications (15) Active Scheduled: (9) ampicillin in NS 100mL 2 gram(s) 100 mL, IV Piggyback, q4h aspirin 81 mg Chewable 81 mg 1 tab(s), Oral, BID atorvastatin 10 mg tablet 10 mg 1 tab(s), Oral, qHS carvedilol 3.125 mg tablet 3.125 mg 1 tab(s), Oral, BIDM cefTRIAXone IVP syringe 2 gram(s) 20 mL, IV Push (INT), q12h levothyroxine 88 mcg tablet 88 mcg 1 tab(s), Oral, Wed//Wed//Wed levothyroxine 88 mcg tablet 88 mcg 1 tab(s), Oral, Wednesday omeprazole [address] capsule 20 mg 1 cap(s), Oral, qDay senna 8.6 mg Tablet 8.6 mg 1 tab(s), Oral, BID Continuous: (0) PRN: (6) acetaminophen 325 mg Tablet 650 mg 2 tab(s), Oral, q6hWA dextrose 50% Solution Disp syringe 50 mL 12.5 gram(s) 25 mL, IV Push, AsDirected melatonin 3 mg tablet 3 mg 1 tab(s), Oral, qHS melatonin 3 mg tablet 3 mg 1 tab(s), Oral, qHS ondansetron 2 mg/ 1 mL 2 mL INJ 4 mg 2 mL, IV Push, q4h tramadol 50 mg Tablet 50 mg 1 tab(s), Oral, BID Lab Results 02/07 04:01 WBC: 4.1 L Hgb: 10.8 L Hct: 32.7 L Platelet: 224 Neutrophil %: 64.0 Glucose Level: 108 Sodium Level: 142 Potassium Level: 4.0 BUN: 9.0 Creatinine Lvl (s): 0.62 EKG No qualifying data available. Assessment/Plan 1. Enterococcal bacteremia 2. Aortic valve echodensity 3. Moderate aortic stenosis 4. Hypertension 5. Hyperlipidemia 6. Hypothyroidism 7. CAD 8. GERD Plan: - SALAZAR ordered and pending for further evaluation of mobile echodensity on aortic valve. - Tentative date of SALAZAR on 02/09/2024. N.p.o. at midnight. Case discussed with attending physician, Dr. Allen. Please see addendum for any further changes. Digitally Signed by ALIA MCCORMACK MD on 02/08/2024 10:57 PM [facility] 02-13-2024 Cardiology Consul t note Date of Service 02/05/2024 Reason for Consultation Bacteremia Review of Systems Apart from mentioned in HPI, pertinent review of systems is negative. Physical Exam Vitals and Measurements T: 36.9 C (Oral) TMIN: 36.7 C (Oral) TMAX: 36.9 C (Oral) HR: 65 (Apical) RR: 22 BP: 123/53 SpO2: 96% HT: 152.4 cm WT: 76.8 kg BMI: 33.07 Weight Dosing Weight: 76.8 kg (02/05/24) Dosing Weight: 76.8 kg (02/05/24) General: well looking, no acute distress, on no supplemental oxygen Cardiovascular: RRR, euvolemic, well perfused Lab Results 02/04 05:07 WBC: 3.2 L Hgb: 10.0 L Hct: 30.3 L Platelet: 208 Neutrophil %: 57.4 Glucose Level: 85 Sodium Level: 142 Potassium Level: 4.1 BUN: 12.0 Creatinine Lvl (s): 0.59 Assessment/Plan Enterococcus faecalis bacteremia for SALAZAR evaluation Reported Takotsubo cardiomyopathy 01/[address] 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, who is admitted to the internal medicine service as a transfer for bacteremia, unclear presenting symptoms as the patient is unable to provide meaningful history. Cardiology was consulted for transesophageal echocardiogram. The patient is alert and oriented, able to make medical decisions, she denies dysphagia, abdominal ulcers, allergies or reactions to anesthesia or sedation. Recommendation: SALAZAR ordered Awaiting ID recommendations Case to be discussed with Dr. Nuha Curtis MD Procurement Manager Messenger guille or Pager [phone] Problem List/Past Medical History Ongoing Acquired hypothyroidism Dyslipidemia Gastro-esophageal reflux Hiatal hernia History of pulmonary embolus Pelvic mass Historical Benign hypertension Fever Rash Severe aortic valve stenosis UTI (urinary tract infection) Procedure/Surgical History Cardiac catheterization: 01/21/24 Echocardiogram: 09/09/23 Cataract extraction Medications Inpatient acetaminophen, 650 mg= 2 tab(s), Oral, q6hWA, PRN ampicillin, 2 gram(s)= 100 mL, IV Piggyback, q6hr aspirin 81 mg oral tablet, chewable, 81 mg= 1 tab(s), Oral, BID atorvastatin, 10 mg= 1 tab(s), Oral, qHS Coreg, 3.125 mg= 1 tab(s), Oral, BIDM Dextrose 50% IV Push, 12.5 gram(s)= 25 mL, IV Push, AsDirected, PRN levothyroxine, 88 mcg= 1 tab(s), Oral, Wed//Wed//Wed melatonin, 3 mg= 1 tab(s), Oral, qHS, PRN melatonin, 3 mg= 1 tab(s), Oral, qHS, PRN omeprazole, 20 mg= 1 cap(s), Oral, qDay Synthroid, 88 mcg= 1 tab(s), Oral, Wednesday traMADol, 50 mg= 1 tab(s), Oral, BID, PRN Zofran, 4 mg= 2 mL, IV Push, q4h, PRN Home aspirin 81 mg oral tablet, chewable, 81 mg= 1 tab(s), Oral, BID calcium (as carbonate)-vitamin D 500 mg-200 intl units oral tablet, 1 tab(s), Oral, Daily Coreg 3.125 mg oral tablet, 3.125 mg= 1 tab(s), Oral, BIDM Lasix 20 mg oral tablet, 20 mg= 1 tab(s), Oral, qDay, PRN, 3 refills levothyroxine 88 mcg (0.088 mg) oral tablet, See Instructions lovastatin 40 mg oral tablet, 40 mg= 1 tab(s), Oral, Daily omeprazole 20 mg oral delayed release capsule, 20 mg= 1 cap(s), Oral, qDay traMADol 50 mg oral tablet, 50 mg= 1 tab(s), Oral, BID, PRN Allergies Macrobid Upset stomach Social History Alcohol Use: Never., 03/26/2023 Nutrition/Health Caffeine intake amount: 1 cup decaf daily., 03/26/2023 Substance Abuse Use: Never., 03/26/2023 Tobacco Nicotine Use: Never (less than 100 in lifetime)., 09/16/2023 Family History Patient was adopted Immunizations pneumococcal 13-valent conjugate vaccine: 0 unknown unit (02/27/16) pneumococcal 23-valent vaccine(Pneumovax: 0.5 unknown unit (02/26/17) SARS-CoV-2 mRNA (tozinameran) vaccine: 0.3 unknown unit (08/12/21) SARS-CoV-2 mRNA (tozinameran) vaccine: 0.5 unknown unit (09/29/20) SARS-CoV-2 mRNA (tozinameran) vaccine: 0.5 unknown unit (09/05/20) Digitally Signed by CANDIDA CURTIS MD on 02/05/2024 12:07 PM Digitally Signed by CANDIDA CURTIS MD on 02/05/2024 01:36 PM [facility] 02-13-2024 Cardiology Progress note Date of Service 02/07/2024 Chief Complaint Enterococcus faecalis bacteremia Objective Vitals and Measurements T: 36.5 C (Oral) TMIN: 36.5 C (Oral) TMAX: 36.6 C (Oral) HR: 70 (Monitored) RR: 18 BP: 140/52 SpO2: 95% Intake and Output 7AM Yesterday to 7AM Today Intake and Output (Last 24 hours) Intake Oral Intake 900.00 Output Urinary Catheter Output: 2650.00 Stool Count 0.00 Total Summary Total Intake 900.00 Total Output 2650.00 Fluid Balance -1750.00 Physical Exam General Appearance: Alert and oriented, in no acute distress. Head: Normocephalic, atraumatic EENT: PERRLA, EOMI, no conjunctival injection, sclera anicteric. Neck: Supple, symmetric. Cardiac: S1 and S2 normal. RRR. Systolic aortic murmur. No JVD. Lungs: Clear to auscultation bilaterally. No wheezes, rhonchi, or crackles. Abdomen: Soft, nondistended, nontender. Normoactive bowel sounds. Musculoskeletal: Full range of motion in spine, upper and lower extremities. Extremities: No cyanosis, clubbing, or lower extremity pitting edema. 2+ radial and pedal pulses bilaterally in all extremities. Neurological: CN II to XII grossly intact. Skin: Warm, dry, well-perfused. Psychiatric: Appropriate mood and affect. Weight Dosing Weight: 76.8 kg (02/05/24) Dosing Weight: 76.8 kg (02/05/24) Medications Medications (14) Active Scheduled: (8) ampicillin in NS 100mL 2 gram(s) 100 mL, IV Piggyback, q4h aspirin 81 mg Chewable 81 mg 1 tab(s), Oral, BID atorvastatin 10 mg tablet 10 mg 1 tab(s), Oral, qHS carvedilol 3.125 mg tablet 3.125 mg 1 tab(s), Oral, BIDM cefTRIAXone IVP syringe 2 gram(s) 20 mL, IV Push (INT), q12h levothyroxine 88 mcg tablet 88 mcg 1 tab(s), Oral, Wed//Wed//Wed levothyroxine 88 mcg tablet 88 mcg 1 tab(s), Oral, Wednesday omeprazole [address] capsule 20 mg 1 cap(s), Oral, qDay Continuous: (0) PRN: (6) acetaminophen 325 mg Tablet 650 mg 2 tab(s), Oral, q6hWA dextrose 50% Solution Disp syringe 50 mL 12.5 gram(s) 25 mL, IV Push, AsDirected melatonin 3 mg tablet 3 mg 1 tab(s), Oral, qHS melatonin 3 mg tablet 3 mg 1 tab(s), Oral, qHS ondansetron 2 mg/ 1 mL 2 mL INJ 4 mg 2 mL, IV Push, q4h tramadol 50 mg Tablet 50 mg 1 tab(s), Oral, BID Lab Results 02/06 04:09 WBC: 4.5 Hgb: 10.7 L Hct: 32.8 L Platelet: 215 Neutrophil %: 62.7 Glucose Level: 94 Sodium Level: 141 Potassium Level: 4.2 BUN: 10.0 Creatinine Lvl (s): 0.70 EKG No qualifying data available. Assessment/Plan 1. Enterococcal bacteremia 2. Aortic valve echodensity 3. Moderate aortic stenosis 4. Hypertension 5. Hyperlipidemia 6. Hypothyroidism 7. CAD 8. GERD Plan: - SALAZAR ordered and pending for further evaluation of mobile echodensity on aortic valve. - SALAZAR will likely be done on 02/08/2024. Diet ordered. Will place n.p.o. at midnight order. Case discussed with attending physician, Dr. Allen. Please see addendum for any further changes. Digitally Signed by ALIA MCCORMACK MD on 02/07/2024 05:47 PM [facility] 02-12-2024 Note Date of Service 02/12/2024 Subjective Resting in bed, no acute complaints overnight, afebrile, having regular bowel movements, tolerating diet. Objective Vitals and Measurements T: 36.6 C (Oral) TMIN: 36.6 C (Oral) TMAX: 36.8 C (Oral) HR: 69 RR: 18 BP: 123/55 SpO2: 94% Intake and Output 7AM Yesterday to 7AM Today Intake and Output (Last 24 hours) Intake Oral Intake 300.00 Supplement Intake 118.00 Output Stool Count 2.00 Diaper Count 2.00 Total Summary Total Intake 418.00 Total Output 0.00 Fluid Balance 418.00 Physical Exam Resting in bed, no acute complaints Working with therapy Clear to auscultation bilaterally Abdomen soft, nontender, active bowel sounds Extremities without any acute deformities. Weight Dosing Weight: 76.8 kg (02/05/24) Dosing Weight: 76.8 kg (02/05/24) Medications Medications (16) Active Scheduled: (10) ampicillin in NS 100mL 2 gram(s) 100 mL, IV Piggyback, q4h aspirin 81 mg Chewable 81 mg 1 tab(s), Oral, BID atorvastatin 10 mg tablet 10 mg 1 tab(s), Oral, qHS carvedilol 3.125 mg tablet 3.125 mg 1 tab(s), Oral, BIDM cefTRIAXone IVP syringe 2 gram(s) 20 mL, IV Push (INT), q12h levothyroxine 88 mcg tablet 88 mcg 1 tab(s), Oral, Wed//Wed//Wed levothyroxine 88 mcg tablet 88 mcg 1 tab(s), Oral, Wednesday lidocaine 1% (MPF) 2 mL vial pf 30 mg 3 mL, Intradermal, prep pharm omeprazole [address] capsule 20 mg 1 cap(s), Oral, qDay senna 8.6 mg Tablet 8.6 mg 1 tab(s), Oral, BID Continuous: (0) PRN: (6) acetaminophen 325 mg Tablet 650 mg 2 tab(s), Oral, q6hWA dextrose 50% Solution Disp syringe 50 mL 12.5 gram(s) 25 mL, IV Push, AsDirected melatonin 3 mg tablet 3 mg 1 tab(s), Oral, qHS melatonin 3 mg tablet 3 mg 1 tab(s), Oral, qHS ondansetron 2 mg/ 1 mL 2 mL INJ 4 mg 2 mL, IV Push, q4h tramadol 50 mg Tablet 50 mg 1 tab(s), Oral, BID Lab Results 02/11 06:14 WBC: 4.1 L Hgb: 9.6 L Hct: 29.6 L Platelet: 215 Neutrophil %: 57.1 Imaging Results and Diagnostics XR Chest 1 View Result Date: February 11, 2024 Verified By: Contributor_systemSHEILA CLINICAL STATEMENT: IMPRESSION: Successful placement left PICC. Chronic interstitial changes and large hiatal hernia stable from prior EKG No qualifying data available. Assessment/Plan Enterococcus faecalis bacteremia Small mobile filiform echodensity at the aortic valve, highly suspicious for aortic valve endocarditis with no other suspected source Status post PICC line 02/11/2024 Urinary retention, improved Generalized weakness Pulmonary hypertension with RVSP of 32 Known history of hypothyroidism, hypertension, hyperlipidemia, GERD, aortic stenosis Plan: At this time, patient is on IV antibiotics as per recommendations by ID. Repeat blood cultures from couple days ago with no growth to date. Responding well to antibiotics. TTE without any evidence that is definitive of any aortic valve vegetation although does state that there is some mobile filiform echodensity. Therefore SALAZAR is being pursued, unfortunately due to patient's cervical/spinal pathology, views were difficult to obtain and therefore SALAZAR was aborted. Patient was recommended to have other modality of imaging to check for the aortic valve abnormality. Discussed with cardiology as well as ID, based on patient's preference, decision was made to treat for 6 weeks with IV antibiotics, awaiting PICC line placement. This is under the impression that she does have aortic valve endocarditis. She would need follow-up cardiac MRI in the outpatient setting. Will follow-up with cardiology as well as ID. Please continue ampicillin 2 g IV every 4 hours and ceftriaxone 2 g IV every 12 hours, tentative end date March 18, 2024 Please obtain CBC, differential, hepatic panel, renal panel every Wednesday and send results to fax number [phone] Anne Please call Dr. Anne's office for a follow-up appointment in 2-4 weeks, Phone number [phone]. PICC line placed 02/11/2024. Functioning well. Regards to the patient's retention: Appears to have some symptoms of constipation, which is now improved. Allen catheter removed Resume home medications as deemed appropriate. Point of contact: Patient's daughter Stefano: [phone] Above plan of care was discussed with the patient at bedside, all questions answered appropriately. This is a note transcribed by me, the attending physician on service using the '[employer]' dictation software. Please excuse any grammatical errors, repetitions/duplications if any are present in the entirety of this note. Thank you. Anticipated Date of Discharge Await pre-CERT: Pre-CERT is obtained, patient can be discharged. Digitally Signed by DRE PHIPPS MD on 02/12/2024 01:17 PM [facility] 02-12-2024 Cardiology Progress note Date of Service 02/09/2024 Chief Complaint Enterococcus faecalis bacteremia Subjective Patient seen and assessed at bedside. No acute events overnight. Objective Vitals and Measurements T: 36.8 C (Oral) TMIN: 36.5 C (Oral) TMAX: 36.8 C (Oral) HR: 66 RR: 16 BP: 118/44 SpO2: 94% Intake and Output 7AM Yesterday to 7AM Today Intake and Output (Last 24 hours) Intake Oral Intake 120.00 Output Urinary Catheter Output: 2000.00 Stool Count 0.00 Emesis Count 0.00 Total Summary Total Intake 120.00 Total Output 2000.00 Fluid Balance -1880.00 Physical Exam General Appearance: Alert and oriented, in no acute distress. Sitting up in chair. Head: Normocephalic, atraumatic EENT: PERRLA, EOMI, no conjunctival injection, sclera anicteric. Neck: Supple, symmetric. Cardiac: S1 and S2 normal. RRR. Systolic aortic murmur. No JVD. Lungs: Clear to auscultation bilaterally. No wheezes, rhonchi, or crackles. Abdomen: Soft, nondistended, nontender. Normoactive bowel sounds. Musculoskeletal: Full range of motion in spine, upper and lower extremities. Extremities: No cyanosis, clubbing, or lower extremity pitting edema. 2+ radial and pedal pulses bilaterally in all extremities. Neurological: CN II to XII grossly intact. Skin: Warm, dry, well-perfused. Psychiatric: Appropriate mood and affect. Weight Dosing Weight: 76.8 kg (02/05/24) Dosing Weight: 76.8 kg (02/05/24) Medications Medications (15) Active Scheduled: (9) ampicillin in NS 100mL 2 gram(s) 100 mL, IV Piggyback, q4h aspirin 81 mg Chewable 81 mg 1 tab(s), Oral, BID atorvastatin 10 mg tablet 10 mg 1 tab(s), Oral, qHS carvedilol 3.125 mg tablet 3.125 mg 1 tab(s), Oral, BIDM cefTRIAXone IVP syringe 2 gram(s) 20 mL, IV Push (INT), q12h levothyroxine 88 mcg tablet 88 mcg 1 tab(s), Oral, Wed//Wed//Wed levothyroxine 88 mcg tablet 88 mcg 1 tab(s), Oral, Wednesday omeprazole [address] capsule 20 mg 1 cap(s), Oral, qDay senna 8.6 mg Tablet 8.6 mg 1 tab(s), Oral, BID Continuous: (0) PRN: (6) acetaminophen 325 mg Tablet 650 mg 2 tab(s), Oral, q6hWA dextrose 50% Solution Disp syringe 50 mL 12.5 gram(s) 25 mL, IV Push, AsDirected melatonin 3 mg tablet 3 mg 1 tab(s), Oral, qHS melatonin 3 mg tablet 3 mg 1 tab(s), Oral, qHS ondansetron 2 mg/ 1 mL 2 mL INJ 4 mg 2 mL, IV Push, q4h tramadol 50 mg Tablet 50 mg 1 tab(s), Oral, BID Lab Results 02/08 04:19 WBC: 7.0 Hgb: 9.8 L Hct: 29.8 L Platelet: 220 02/07 04:01 WBC: 4.1 L Hgb: 10.8 L Hct: 32.7 L Platelet: 224 Neutrophil %: 64.0 Glucose Level: 108 Sodium Level: 142 Potassium Level: 4.0 BUN: 9.0 Creatinine Lvl (s): 0.62 EKG No qualifying data available. Assessment/Plan 1. Enterococcal bacteremia 2. Aortic valve echodensity 3. Moderate aortic stenosis 4. Hypertension 5. Hyperlipidemia 6. Hypothyroidism 7. CAD 8. GERD Plan: - SALAZAR attempted but unsuccessful due to cervical spine contractures and patient's difficulty following commands. As such, it was deemed that the procedure could not be done safely. - Recommend cardiac MRI which may be done as outpatient. Case discussed with attending physician, Dr. Allen. Please see addendum for any further changes. Digitally Signed by ALIA MCCORMACK MD on 02/09/2024 09:54 PM [facility] 02-11-2024 Procedure note Vascular Access Team Post Procedure Note Procedure: Peripherally Inserted Central Catheter (PICC) Indication: Retirement Antibiotics Details: Consult for PICC Placement received. Chart Reviewed. Informed consent was obtained and verified prior to the procedure. A pre-procedure Time Out was performed confirming correct patient and procedure. A _ Double Lumen PICC was inserted at the bedside under sterile technique. Vacular access was obtained with ultrasound guidance. PICC flushes easily with good blood return. Patient tolerated placement of PICC well. PICC education provided. Anesthesia: Local subcutaneous injection using 3ml 2% Lidocaine Access Vessel: Left Brachial Catheter Length: 40cm Internal Length: 40cm External Length: 0cm Arm Circ: 32cm Lot #: [id number] Complications: None Inserted by: Reno Tapia RN Plan: Chest x-ray complete and confirmed PICC placement in SVC. May use PICC now per protocol. Digitally Signed by MICH Tapia Nora A on 02/11/2024 05:39 PM [facility] 02-11-2024 Note ORIGINAL EXAMINATION: ONE XRAY VIEW OF THE CHEST02/11/2024 5:19 pm CHEST ONE VIEW AP/PA EXAM DESCRIPTION: COMPARISON: Chest, January 31, 2024 HISTORY: ORDERING SYSTEM PROVIDED HISTORY: Reason for Exam: picc placement, confirm picc tip location FINDINGS: Single AP radiograph of the chest was obtained. Lung volumes are decreased with crowding of the bronchovascular cristy. Chronic interstitial changes not significantly changed from prior. Large hiatal hernia. The cardiomediastinal silhouette is unremarkable. Left PICC tip is in the mid SVC. The bones and soft tissues are unremarkable. IMPRESSION: Successful placement left PICC. Chronic interstitial changes and large hiatal hernia stable from prior Interpreted by: Wilberto Loyd MD Preliminary Report By: Wilberto Loyd MD Electronically signed By Wilberto Loyd MD Dictated Date: 02/11/2024 5:25:52 PM Prelim Date: 02/11/2024 5:26:58 PM Sign Date: 02/11/2024 5:26:58 PM Ordering Provider: DRE [facility] 02-11-2024 Note Date of Service 02/11/2024 Subjective Patient is resting in the bedside, was just getting ready to work with physical therapy. She does not voice to having any complaints. She still has an indwelling Allen catheter, does state that she has a history of incontinence and was is worried that she will soil herself if the Allen catheter is removed. However does not have any lower abdominal pain, has been having bowel movements in the last 24 hours, no diarrhea or constipation currently. Objective Vitals and Measurements T: 36.8 C (Oral) TMIN: 36.5 C (Oral) TMAX: 36.8 C (Oral) HR: 70 RR: 18 BP: 104/55 SpO2: 94% Intake and Output 7AM Yesterday to 7AM Today Intake and Output (Last 24 hours) Intake Intra-Op Crystalloid 50.00 Oral Intake 628.00 Output Urinary Catheter Output: 2125.00 Stool Count 2.00 Total Summary Total Intake 678.00 Total Output 2125.00 Fluid Balance -1447.00 Physical Exam General Appearance: Patient comfortably lying on bed, not in acute distress Head: Normocephalic, atraumatic EENT: PERRLA, moist mucous membranes Neck: Supple, no JVD, no mass Cardiac: s1s2,RRR, no murmurs or rubs or gallops Lungs: Clear to auscultation bilaterally, no wheeze, rhonchi or crackles Abdomen: Soft , Nontender, no organomegaly, bowel sounds heard Musculoskeletal: Full ROM , no gross deformities Extremities: No rash or ulcers or pedal edema Neurological: Alert, oriented x 3, grossly no focal neurological deficits Skin: No rash or ulcers Weight Dosing Weight: 76.8 kg (02/05/24) Dosing Weight: 76.8 kg (02/05/24) Medications Medications (16) Active Scheduled: (10) ampicillin in NS 100mL 2 gram(s) 100 mL, IV Piggyback, q4h aspirin 81 mg Chewable 81 mg 1 tab(s), Oral, BID atorvastatin 10 mg tablet 10 mg 1 tab(s), Oral, qHS carvedilol 3.125 mg tablet 3.125 mg 1 tab(s), Oral, BIDM cefTRIAXone IVP syringe 2 gram(s) 20 mL, IV Push (INT), q12h levothyroxine 88 mcg tablet 88 mcg 1 tab(s), Oral, Wed//Wed//Wed levothyroxine 88 mcg tablet 88 mcg 1 tab(s), Oral, Wednesday lidocaine 1% (MPF) 2 mL vial pf 30 mg 3 mL, Intradermal, prep pharm omeprazole [address] capsule 20 mg 1 cap(s), Oral, qDay senna 8.6 mg Tablet 8.6 mg 1 tab(s), Oral, BID Continuous: (0) PRN: (6) acetaminophen 325 mg Tablet 650 mg 2 tab(s), Oral, q6hWA dextrose 50% Solution Disp syringe 50 mL 12.5 gram(s) 25 mL, IV Push, AsDirected melatonin 3 mg tablet 3 mg 1 tab(s), Oral, qHS melatonin 3 mg tablet 3 mg 1 tab(s), Oral, qHS ondansetron 2 mg/ 1 mL 2 mL INJ 4 mg 2 mL, IV Push, q4h tramadol 50 mg Tablet 50 mg 1 tab(s), Oral, BID Lab Results 02/09 05:41 Hgb: 9.9 L Hct: 29.5 L EKG No qualifying data available. Assessment/Plan Enterococcus faecalis bacteremia Small mobile filiform echodensity at the aortic valve, highly suspicious for aortic valve endocarditis with no other suspected source Urinary retention status post indwelling Allen catheter Generalized weakness Pulmonary hypertension with RVSP of 32 Known history of hypothyroidism, hypertension, hyperlipidemia, GERD, aortic stenosis Plan: At this time, patient is on IV antibiotics as per recommendations by ID. Repeat blood cultures from couple days ago with no growth to date. Responding well to antibiotics. TTE without any evidence that is definitive of any aortic valve vegetation although does state that there is some mobile filiform echodensity. Therefore SALAZAR is being pursued, unfortunately due to patient's cervical/spinal pathology, views were difficult to obtain and therefore SALAZAR was aborted. Patient was recommended to have other modality of imaging to check for the aortic valve abnormality. Discussed with cardiology as well as ID, based on patient's preference, decision was made to treat for 6 weeks with IV antibiotics, awaiting PICC line placement. This is under the impression that she does have aortic valve endocarditis. She would need follow-up cardiac MRI in the outpatient setting. Will follow-up with cardiology as well as ID. Please continue ampicillin 2 g IV every 4 hours and ceftriaxone 2 g IV every 12 hours, tentative end date March 18, 2024 Please obtain CBC, differential, hepatic panel, renal panel every Wednesday and send results to fax number [phone] Anne Please call Dr. Anne's office for a follow-up appointment in 2-4 weeks, Phone number [phone]. Awaiting PICC line placement. Regards to the patient's retention: Appears to have some symptoms of constipation, which is now improved. Will perform voiding trial today. Resume home medications as deemed appropriate. Point of contact: Patient's daughter Stefano: [phone] Above plan of care was discussed with the patient at bedside, all questions answered appropriately. This is a note transcribed by me, the attending physician on service using the '[employer]' dictation software. Please excuse any grammatical errors, repetitions/duplications if any are present in the entirety of this note. Thank you. Anticipated Date of Discharge Patient can be discharged once PICC line is placed for IV antibiotics and when pre-CERT is obtained. Digitally Signed by DRE PHIPPS MD on 02/11/2024 11:42 AM [facility] 02-10-2024 Note Patient's cervical spine is contracted and follow commands poorly. Procedure can not be done safely as ordered. Consider CT imaging for valve evaluation Digitally Signed by PIO DONAHUE MD on 02/09/2024 11:45 AM [facility] 02-09-2024 Infectious diseas e Progress note Date of Service 02/09/2024 Objective Vitals and Measurements T: 36.7 C (Oral) TMIN: 36.5 C (Oral) TMAX: 36.7 C (Oral) HR: 64 RR: 18 BP: 113/42 SpO2: 93% Physical Exam Chart reviewed, patient examined. Patient appears alert and oriented to self, she is aware of being in a hospital but is unable to identify [place], appears forgetful but does FSC, resting in bed watching TV. No c/o NVD, patient with 0 documented BMs in the last 24 hours. Denies SOB, reports occasional cough. Denies chills or sweats although reports feeling cold with removal of blankets for assessment. Denies pain currently at rest. No new complaints this AM, although patient appears forgetful. Respirations easy and nonlabored, 93% on RA. Patient has remained afebrile for the last 24 hours. FOCUSED ASSESSMENT: CVS: Regular S1S2 LUNGS: Clear bilaterally, denies SOB, occasional cough, on RA ABDOMEN: Rounded, soft, nontender, + bowel sounds, passing gas, 0 documented BMs in the last 24 hours SKIN: Pale in overall coloring, BLE mild rash/dry skin [employer], diffuse ecchymosis INCISIONS/DRESSINGS: None EXTREMITIES: +1 BLE/pedal edema, BLE chronic skin changes/dry skin/mild rash, generalized weakness/fatigue-ongoing LINES/TUBES/DRAINS: LFA IV dressing dry & intact, no drainage or erythema at site. Allen with darker yellow urine noted to tubing/bag. CURRENT ANTIBIOTICS: Gentamicin 240mg IV x1 02/04 Ampicillin 2g IV Q4h 01/31 - present Rocephin 2g IV Q12h 02/04 - present CULTURE RESULTS/ASHLEIGH: 01/30 Blood Cultures 2/2 -F Enterococcus faecalis 01/31 Blood Cultures 09/10 -F Enterococcus faecalis 02/01 Blood Cultures 09/10 -F Enterococcus faecalis 02/02 Blood Cultures 08/09 -F Enterococcus faecalis 02/03 Blood Cultures 09/10 no growth to date -P Weight Dosing Weight: 76.8 kg (02/05/24) Dosing Weight: 76.8 kg (02/05/24) Medications Medications (15) Active Scheduled: (9) ampicillin in NS 100mL 2 gram(s) 100 mL, IV Piggyback, q4h aspirin 81 mg Chewable 81 mg 1 tab(s), Oral, BID atorvastatin 10 mg tablet 10 mg 1 tab(s), Oral, qHS carvedilol 3.125 mg tablet 3.125 mg 1 tab(s), Oral, BIDM cefTRIAXone IVP syringe 2 gram(s) 20 mL, IV Push (INT), q12h levothyroxine 88 mcg tablet 88 mcg 1 tab(s), Oral, Wed//Wed//Wed levothyroxine 88 mcg tablet 88 mcg 1 tab(s), Oral, Wednesday omeprazole [address] capsule 20 mg 1 cap(s), Oral, qDay senna 8.6 mg Tablet 8.6 mg 1 tab(s), Oral, BID Continuous: (0) PRN: (6) acetaminophen 325 mg Tablet 650 mg 2 tab(s), Oral, q6hWA dextrose 50% Solution Disp syringe 50 mL 12.5 gram(s) 25 mL, IV Push, AsDirected melatonin 3 mg tablet 3 mg 1 tab(s), Oral, qHS melatonin 3 mg tablet 3 mg 1 tab(s), Oral, qHS ondansetron 2 mg/ 1 mL 2 mL INJ 4 mg 2 mL, IV Push, q4h tramadol 50 mg Tablet 50 mg 1 tab(s), Oral, BID Lab Results 02/08 04:19 WBC: 7.0 Hgb: 9.8 L Hct: 29.8 L Platelet: 220 02/07 04:01 WBC: 4.1 L Hgb: 10.8 L Hct: 32.7 L Platelet: 224 Neutrophil %: 64.0 Glucose Level: 108 Sodium Level: 142 Potassium Level: 4.0 BUN: 9.0 Creatinine Lvl (s): 0.62 Imaging Results and Diagnostics 01/31 TTE Summary: 1. Left ventricle: The cavity size is normal. Wall thickness is normal. Systolic function is normal. The estimated ejection fraction is 55-60%. Wall motion is normal; there are no regional wall motion abnormalities. Diastolic dysfunction is present. 2. Aortic valve: Small mobile filiform stand-like echodesnity on AV (3-4mm), likely represening Lambl excrescences, vegetation less likely. There is moderate stenosis. There is mild regurgitation. The mean systolic gradient is 25 mm Hg. The valve area by peak velocity is 1.4 cm . 3. Right ventricle: The RV systolic pressure by Doppler is 32 mm Hg. 4. Right atrium: The estimated right atrial pressure is 3 mm Hg. 02/09/2024 SALAZAR Pending completion and results Problem List 1. E faecalis bacteremia 2. Possible UTI 3. Aortic valve endocarditis Digitally Signed by Lima Vital RN on 02/09/2024 10:08 AM [facility] 02-09-2024 Note . MICRO - Microbiology PROCEDURE: Blood Culture (bacterial) [*1] SOURCE: Blood BODY SITE: COLLECTED DATE/TIME: 02/04/2024 07:21 EDT RECEIVED DATE/TIME: 02/04/2024 14:19 EDT START DATE/TIME: 02/04/2024 14:19 EDT FREE TEXT SOURCE: FINAL REPORTS Final Report [] Verified Date/Time/Personnel: 02/09/2024 14:59 EDT Blood Culture: No Growth at 5 days. PRELIMINARY REPORTS Preliminary Report [] Verified Date/Time/Personnel: 02/04/2024 14:59 EDT Culture has been received in lab and is no growth to date. Routine cultures are held for 5 days. Performing Locations *1: This test was performed at: [facility], [address] [place] [address], [id number] , [facility] ([place]) 02-09-2024 Note . MICRO - Microbiology PROCEDURE: Blood Culture (bacterial) [*1] SOURCE: Blood BODY SITE: COLLECTED DATE/TIME: 02/04/2024 07:21 EDT RECEIVED DATE/TIME: 02/04/2024 14:19 EDT START DATE/TIME: 02/04/2024 14:19 EDT FREE TEXT SOURCE: FINAL REPORTS Final Report [] Verified Date/Time/Personnel: 02/09/2024 14:59 EDT Blood Culture: No Growth at 5 days. PRELIMINARY REPORTS Preliminary Report [] Verified Date/Time/Personnel: 02/04/2024 14:59 EDT Culture has been received in lab and is no growth to date. Routine cultures are held for 5 days. Performing Locations *1: This test was performed at: [facility], [address] [place] [address], [id number] , [facility] ([place]) 02-09-2024 Cardiology Progress note Date of Service 02/09/2024 Chief Complaint Enterococcus faecalis bacteremia Subjective Patient seen and assessed at bedside. No acute events overnight. Objective Vitals and Measurements T: 36.8 C (Oral) TMIN: 36.5 C (Oral) TMAX: 36.8 C (Oral) HR: 66 RR: 16 BP: 118/44 SpO2: 94% Intake and Output 7AM Yesterday to 7AM Today Intake and Output (Last 24 hours) Intake Oral Intake 120.00 Output Urinary Catheter Output: 2000.00 Stool Count 0.00 Emesis Count 0.00 Total Summary Total Intake 120.00 Total Output 2000.00 Fluid Balance -1880.00 Physical Exam General Appearance: Alert and oriented, in no acute distress. Sitting up in chair. Head: Normocephalic, atraumatic EENT: PERRLA, EOMI, no conjunctival injection, sclera anicteric. Neck: Supple, symmetric. Cardiac: S1 and S2 normal. RRR. Systolic aortic murmur. No JVD. Lungs: Clear to auscultation bilaterally. No wheezes, rhonchi, or crackles. Abdomen: Soft, nondistended, nontender. Normoactive bowel sounds. Musculoskeletal: Full range of motion in spine, upper and lower extremities. Extremities: No cyanosis, clubbing, or lower extremity pitting edema. 2+ radial and pedal pulses bilaterally in all extremities. Neurological: CN II to XII grossly intact. Skin: Warm, dry, well-perfused. Psychiatric: Appropriate mood and affect. Weight Dosing Weight: 76.8 kg (02/05/24) Dosing Weight: 76.8 kg (02/05/24) Medications Medications (15) Active Scheduled: (9) ampicillin in NS 100mL 2 gram(s) 100 mL, IV Piggyback, q4h aspirin 81 mg Chewable 81 mg 1 tab(s), Oral, BID atorvastatin 10 mg tablet 10 mg 1 tab(s), Oral, qHS carvedilol 3.125 mg tablet 3.125 mg 1 tab(s), Oral, BIDM cefTRIAXone IVP syringe 2 gram(s) 20 mL, IV Push (INT), q12h levothyroxine 88 mcg tablet 88 mcg 1 tab(s), Oral, Wed//Wed//Wed levothyroxine 88 mcg tablet 88 mcg 1 tab(s), Oral, Wednesday omeprazole [address] capsule 20 mg 1 cap(s), Oral, qDay senna 8.6 mg Tablet 8.6 mg 1 tab(s), Oral, BID Continuous: (0) PRN: (6) acetaminophen 325 mg Tablet 650 mg 2 tab(s), Oral, q6hWA dextrose 50% Solution Disp syringe 50 mL 12.5 gram(s) 25 mL, IV Push, AsDirected melatonin 3 mg tablet 3 mg 1 tab(s), Oral, qHS melatonin 3 mg tablet 3 mg 1 tab(s), Oral, qHS ondansetron 2 mg/ 1 mL 2 mL INJ 4 mg 2 mL, IV Push, q4h tramadol 50 mg Tablet 50 mg 1 tab(s), Oral, BID Lab Results 02/08 04:19 WBC: 7.0 Hgb: 9.8 L Hct: 29.8 L Platelet: 220 02/07 04:01 WBC: 4.1 L Hgb: 10.8 L Hct: 32.7 L Platelet: 224 Neutrophil %: 64.0 Glucose Level: 108 Sodium Level: 142 Potassium Level: 4.0 BUN: 9.0 Creatinine Lvl (s): 0.62 EKG No qualifying data available. Assessment/Plan 1. Enterococcal bacteremia 2. Aortic valve echodensity 3. Moderate aortic stenosis 4. Hypertension 5. Hyperlipidemia 6. Hypothyroidism 7. CAD 8. GERD Plan: - SALAZAR attempted but unsuccessful due to cervical spine contractures and patient's difficulty following commands. As such, it was deemed that the procedure could not be done safely. - Recommend cardiac MRI which may be done as outpatient. Case discussed with attending physician, Dr. Allen. Please see addendum for any further changes. Digitally Signed by ALIA MCCORMACK MD on 02/09/2024 09:54 PM [facility] 02-09-2024 Note Exam Date Time Procedure Performing Provider Status 02/09/24 11:48 AM Transesophageal Echo cardiogram - CV Auth (Verified) [facility] 07-03-2024 Note Patient's cervical spine is contracted and follow commands poorly. Procedure can not be done safelyas ordered. Consider CT imaging for valve evaluation Digitally Signed by PIO DONAHUE MD on 02/09/2024 11:45 AM [id number] Infectious disease Progress note Date of Service 02/09/2024 Objective Vitals and Measurements T: 36.7 C (Oral) TMIN: 36.5 C (Oral) TMAX: 36.7 C (Oral) HR: 64 RR: 18 BP: 113/42 SpO2: 93% Physical Exam Chart reviewed, patient examined. Patient appears alert and oriented to self, she is aware of beingin a hospital but is unable to identify [place], appears forgetful but does FSC, resting in bed watching TV. No c/o NVD, patient with 0 documented BMs in the last 24 hours. Denies SOB, reports occasional cough. Denies chills or sweats although reports feeling cold with removal of blankets for assessment. Denies pain currently at rest. No new complaints this AM, although patient appears forgetful. Respirations easy and nonlabored, 93% on RA. Patient has remained afebrile for the last 24 hours. FOCUSED ASSESSMENT: CVS: Regular S1S2 LUNGS: Clear bilaterally, denies SOB, occasional cough, on RA ABDOMEN: Rounded, soft, nontender, + bowel sounds, passing gas, 0 documented BMs in the last 24 hours SKIN: Pale in overall coloring, BLE mild rash/dry skin DANNA, diffuse ecchymosis INCISIONS/DRESSINGS: None EXTREMITIES: +1 BLE/pedal edema, BLE chronic skin changes/dry skin/mild rash, generalized weakness/fatigue-ongoing LINES/TUBES/DRAINS: LFA IV dressing dry & intact, no drainage or erythema at site. Allen with darker yellow urine noted to tubing/bag. CURRENT ANTIBIOTICS: Gentamicin 240mg IV x1 02/04 Ampicillin 2g IV Q4h 01/31 - present Rocephin 2g IV Q12h 02/04 - present CULTURE RESULTS/ASHLEIGH: 01/30 Blood Cultures 09/10 -F Enterococcus faecalis 01/31 Blood Cultures 09/10 -F Enterococcus faecalis 02/01 Blood Cultures 09/10 -F Enterococcus faecalis 02/02 Blood Cultures 08/09 -F Enterococcus faecalis 02/03 Blood Cultures 09/10 no growth to date -P Weight Dosing Weight: 76.8 kg (02/05/24) Dosing Weight: 76.8 kg (02/05/24) Medications Medications (15) Active Scheduled: (9) ampicillin in NS 100mL 2 gram(s) 100 mL, IV Piggyback, q4h aspirin 81 mg Chewable 81 mg 1 tab(s), Oral, BID atorvastatin 10 mg tablet 10 mg 1 tab(s), Oral, qHS carvedilol 3.125 mg tablet 3.125 mg 1 tab(s), Oral, BIDM cefTRIAXone IVP syringe 2 gram(s) 20 mL, IV Push (INT), q12h levothyroxine 88 mcg tablet 88 mcg 1 tab(s), Oral, Wed//Wed//Wed levothyroxine 88 mcg tablet 88 mcg 1 tab(s), Oral, Wednesday omeprazole [address] capsule 20 mg 1 cap(s), Oral, qDay senna 8.6 mg Tablet 8.6 mg 1 tab(s), Oral, BID Continuous: (0) PRN: (6) acetaminophen 325 mg Tablet 650 mg 2 tab(s), Oral, q6hWA dextrose 50% Solution Disp syringe 50 mL 12.5 gram(s) 25 mL, IV Push, AsDirected melatonin 3 mg tablet 3 mg 1 tab(s), Oral, qHS melatonin 3 mg tablet 3 mg 1 tab(s), Oral, qHS ondansetron 2 mg/ 1 mL 2 mL INJ 4 mg 2 mL, IV Push, q4h tramadol 50 mg Tablet 50 mg 1 tab(s), Oral, BID Lab Results 02/08 04:19 WBC: 7.0 Hgb: 9.8 L Hct: 29.8 L Platelet: 220 02/07 04:01 WBC: 4.1 L Hgb: 10.8 L Hct: 32.7 L Platelet: 224 Neutrophil %: 64.0 Glucose Level: 108 Sodium Level: 142 Potassium Level: 4.0 BUN: 9.0 Creatinine Lvl (s): 0.62 Imaging Results and Diagnostics 01/31 TTE Summary: 1. Left ventricle: The cavity size is normal. Wall thickness is normal. Systolic function is normal. The estimated ejection fraction is 55-60%. Wall motion is normal; there are no regional wall motion abnormalities. Diastolic dysfunction is present. 2. Aortic valve: Small mobile filiform stand-like echodesnity on AV (3-4mm), likely represening Lambl excrescences, vegetation less likely. There is moderate stenosis. There is mild regurgitation. The mean systolic gradient is 25 mm Hg. The valve area by peak velocity is 1.4 cm . 3. Right ventricle: The RV systolic pressure by Doppler is 32 mm Hg. 4. Right atrium: The estimated right atrial pressure is 3 mm Hg. 02/09/2024 SALAZAR Pending completion and results Problem List 1. E faecalis bacteremia 2. Possible UTI 3. Aortic valve endocarditis Digitally Signed by Lima Vital RN on 02/09/2024 10:08 AM [id number] Card[facility] Progress note Date of Service 02/08/2024 Chief Complaint Enterococcus faecalis bacteremia Subjective Patient seen and assessed at bedside. Sitting up in chair. No acute events overnight. Objective Vitals and Measurements T: 36.5 C (Oral) TMIN: 36.4 C (Oral) TMAX: 36.5 C (Oral) HR: 82 (Monitored) RR: 18 BP: 120/50 SpO2:93% Intake and Output 7AM Yesterday to 7AM Today Intake and Output (Last 24 hours) Intake Oral Intake 168.00 Output Urinary Catheter Output: 1200.00 Stool Count 2.00 Total Summary Total Intake 168.00 Total Output 1200.00 Fluid Balance -1032.00 Physical Exam General Appearance: Alert and oriented, in no acute distress. Sitting up in chair. Head: Normocephalic, atraumatic EENT: PERRLA, EOMI, no conjunctival injection, sclera anicteric. Neck: Supple, symmetric. Cardiac: S1 and S2 normal. RRR. Systolic aortic murmur. No JVD. Lungs: Clear to auscultation bilaterally. No wheezes, rhonchi, or crackles. Abdomen: Soft, nondistended, nontender. Normoactive bowel sounds. Musculoskeletal: Full range of motion in spine, upper and lower extremities. Extremities: No cyanosis, clubbing, or lower extremity pitting edema. 2+ radial and pedal pulses bilaterally in all extremities. Neurological: CN II to XII grossly intact. Skin: Warm, dry, well-perfused. Psychiatric: Appropriate mood and affect. Weight Dosing Weight: 76.8 kg (02/05/24) Dosing Weight: 76.8 kg (02/05/24) Medications Medications (15) Active Scheduled: (9) ampicillin in NS 100mL 2 gram(s) 100 mL, IV Piggyback, q4h aspirin 81 mg Chewable 81 mg 1 tab(s), Oral, BID atorvastatin 10 mg tablet 10 mg 1 tab(s), Oral, qHS carvedilol 3.125 mg tablet 3.125 mg 1 tab(s), Oral, BIDM cefTRIAXone IVP syringe 2 gram(s) 20 mL, IV Push (INT), q12h levothyroxine 88 mcg tablet 88 mcg 1 tab(s), Oral, Wed//Wed//Wed levothyroxine 88 mcg tablet 88 mcg 1 tab(s), Oral, Wednesday omeprazole [address] capsule 20 mg 1 cap(s), Oral, qDay senna 8.6 mg Tablet 8.6 mg 1 tab(s), Oral, BID Continuous: (0) PRN: (6) acetaminophen 325 mg Tablet 650 mg 2 tab(s), Oral, q6hWA dextrose 50% Solution Disp syringe 50 mL 12.5 gram(s) 25 mL, IV Push, AsDirected melatonin 3 mg tablet 3 mg 1 tab(s), Oral, qHS melatonin 3 mg tablet 3 mg 1 tab(s), Oral, qHS ondansetron 2 mg/ 1 mL 2 mL INJ 4 mg 2 mL, IV Push, q4h tramadol 50 mg Tablet 50 mg 1 tab(s), Oral, BID Lab Results 07/02 04:01 WBC: 4.1 L Hgb: 10.8 L Hct: 32.7 L Platelet: 224 Neutrophil %: 64.0 Glucose Level: 108 Sodium Level: 142 Potassium Level: 4.0 BUN: 9.0 Creatinine Lvl (s): 0.62 EKG No qualifying data available. Assessment/Plan 1. Enterococcal bacteremia 2. Aortic valve echodensity 3. Moderate aortic stenosis 4. Hypertension 5. Hyperlipidemia 6. Hypothyroidism 7. CAD 8. GERD Plan: - SALAZAR ordered and pending for further evaluation of mobile echodensity on aortic valve. - Tentative date of SALAZAR on 02/09/2024. N.p.o. at midnight. Case discussed with attending physician, Dr. Allen. Please see addendum for any further changes. Digitally Signed by ALIA MCCORMACK MD on 02/08/2024 10:57 PM [id number] Infectious disease Progress note Date of Service 02/08/2024 Objective Vitals and Measurements T: 36.4 C (Oral) TMIN: 36.4 C (Oral) TMAX: 36.6 C (Oral) HR: 68 RR: 18 BP: 104/48 SpO2: 95% Physical Exam Chart reviewed, patient examined. Patient appears alert and oriented to self and place only, appears forgetful but FSC, resting in bed watching TV. No c/o NVD, patient with 2 documented BMs in the last 24 hours. Denies SOB, reports occasional cough. Denies chills or sweats although reports she is always cold, Denies pain currently at rest. No other new complaints this AM, although patient appears forgetful. Respirations easy and nonlabored, 95% on RA. Patient has remained afebrile for the last 24 hours. FOCUSED ASSESSMENT: CVS: Regular S1S2 LUNGS: Clear bilaterally, denies SOB, occasional cough, on RA ABDOMEN: Rounded, soft, nontender, + bowel sounds, passing gas, 2 documented BMs in the last 24 hours SKIN: Pale in overall coloring, BLE mild rash/dry skin [employer] INCISIONS/DRESSINGS: None EXTREMITIES: +1 BLE/pedal edema, BLE chronic skin changes/dry skin/mild rash, generalized weakness/fatigue-ongoing LINES/TUBES/DRAINS: LW IV dressing dry & intact, no drainage or erythema at site, Coban Wrap. Allen with yellow urine noted to tubing/bag. CURRENT ANTIBIOTICS: Gentamicin 240mg IV x1 02/04 Ampicillin 2g IV Q4h 01/31 - present Rocephin 2g IV Q12h 02/04 - present CULTURE RESULTS/ASHLEIGH: 01/30 Blood Cultures 2/2 -F Enterococcus faecalis 01/31 Blood Cultures 09/10 -F Enterococcus faecalis 02/01 Blood Cultures 09/10 -F Enterococcus faecalis 02/02 Blood Cultures 08/09 -F Enterococcus faecalis 02/03 Blood Cultures 09/10 no growth to date -P Weight Dosing Weight: 76.8 kg (02/05/24) Dosing Weight: 76.8 kg (02/05/24) Medications Medications (14) Active Scheduled: (8) ampicillin in NS 100mL 2 gram(s) 100 mL, IV Piggyback, q4h aspirin 81 mg Chewable 81 mg 1 tab(s), Oral, BID atorvastatin 10 mg tablet 10 mg 1 tab(s), Oral, qHS carvedilol 3.125 mg tablet 3.125 mg 1 tab(s), Oral, BIDM cefTRIAXone IVP syringe 2 gram(s) 20 mL, IV Push (INT), q12h levothyroxine 88 mcg tablet 88 mcg 1 tab(s), Oral, Wed//Wed//Wed levothyroxine 88 mcg tablet 88 mcg 1 tab(s), Oral, Wednesday omeprazole [address] capsule 20 mg 1 cap(s), Oral, qDay Continuous: (0) PRN: (6) acetaminophen 325 mg Tablet 650 mg 2 tab(s), Oral, q6hWA dextrose 50% Solution Disp syringe 50 mL 12.5 gram(s) 25 mL, IV Push, AsDirected melatonin 3 mg tablet 3 mg 1 tab(s), Oral, qHS melatonin 3 mg tablet 3 mg 1 tab(s), Oral, qHS ondansetron 2 mg/ 1 mL 2 mL INJ 4 mg 2 mL, IV Push, q4h tramadol 50 mg Tablet 50 mg 1 tab(s), Oral, BID Lab Results 02/07 04:01 WBC: 4.1 L Hgb: 10.8 L Hct: 32.7 L Platelet: 224 Neutrophil %: 64.0 Glucose Level: 108 Sodium Level: 142 Potassium Level: 4.0 BUN: 9.0 Creatinine Lvl (s): 0.62 07/01 04:09 WBC: 4.5 Hgb: 10.7 L Hct: 32.8 L Platelet: 215 Neutrophil %: 62.7 Glucose Level: 94 Sodium Level: 141 Potassium Level: 4.2 BUN: 10.0 Creatinine Lvl (s): 0.70 Imaging Results and Diagnostics 01/31 TTE Summary: 1. Left ventricle: The cavity size is normal. Wall thickness is normal. Systolic function is normal. The estimated ejection fraction is 55-60%. Wall motion is normal; there are no regional wall motion abnormalities. Diastolic dysfunction is present. 2. Aortic valve: Small mobile filiform stand-like echodesnity on AV (3-4mm), likely represening Lambl excrescences, vegetation less likely. There is moderate stenosis. There is mild regurgitation. The mean systolic gradient is 25 mm Hg. The valve area by peak velocity is 1.4 cm . 3. Right ventricle: The RV systolic pressure by Doppler is 32 mm Hg. 4. Right atrium: The estimated right atrial pressure is 3 mm Hg. 02/08/2024 SALAZAR Pending completion and results Problem List 1. E faecalis bacteremia 2. Possible UTI 3. Aortic valve endocarditis Digitally Signed by Lima Vital RN on 02/08/2024 10:26 AM Digitally Signed by CIPRIANO DAGN MD on 02/09/2024 02:37 PM [id number] Cardiology Progress note Date of Service 02/07/2024 Chief Complaint Enterococcus faecalis bacteremia Objective Vitals and Measurements T: 36.5 C (Oral) TMIN: 36.5 C (Oral) TMAX: 36.6 C (Oral) HR: 70 (Monitored) RR: 18 BP: 140/52 SpO2:95% Intake and Output 7AM Yesterday to 7AM Today Intake and Output (Last 24 hours) Intake Oral Intake 900.00 Output Urinary Catheter Output: 2650.00 Stool Count 0.00 Total Summary Total Intake 900.00 Total Output 2650.00 Fluid Balance -1750.00 Physical Exam General Appearance: Alert and oriented, in no acute distress. Head: Normocephalic, atraumatic EENT: PERRLA, EOMI, no conjunctival injection, sclera anicteric. Neck: Supple, symmetric. Cardiac: S1 and S2 normal. RRR. Systolic aortic murmur. No JVD. Lungs: Clear to auscultation bilaterally. No wheezes, rhonchi, or crackles. Abdomen: Soft, nondistended, nontender. Normoactive bowel sounds. Musculoskeletal: Full range of motion in spine, upper and lower extremities. Extremities: No cyanosis, clubbing, or lower extremity pitting edema. 2+ radial and pedal pulses bilaterally in all extremities. Neurological: CN II to XII grossly intact. Skin: Warm, dry, well-perfused. Psychiatric: Appropriate mood and affect. Weight Dosing Weight: 76.8 kg (02/05/24) Dosing Weight: 76.8 kg (02/05/24) Medications Medications (14) Active Scheduled: (8) ampicillin in NS 100mL 2 gram(s) 100 mL, IV Piggyback, q4h aspirin 81 mg Chewable 81 mg 1 tab(s), Oral, BID atorvastatin 10 mg tablet 10 mg 1 tab(s), Oral, qHS carvedilol 3.125 mg tablet 3.125 mg 1 tab(s), Oral, BIDM cefTRIAXone IVP syringe 2 gram(s) 20 mL, IV Push (INT), q12h levothyroxine 88 mcg tablet 88 mcg 1 tab(s), Oral, Wed//Wed//Wed levothyroxine 88 mcg tablet 88 mcg 1 tab(s), Oral, Wednesday omeprazole [address] capsule 20 mg 1 cap(s), Oral, qDay Continuous: (0) PRN: (6) acetaminophen 325 mg Tablet 650 mg 2 tab(s), Oral, q6hWA dextrose 50% Solution Disp syringe 50 mL 12.5 gram(s) 25 mL, IV Push, AsDirected melatonin 3 mg tablet 3 mg 1 tab(s), Oral, qHS melatonin 3 mg tablet 3 mg 1 tab(s), Oral, qHS ondansetron 2 mg/ 1 mL 2 mL INJ 4 mg 2 mL, IV Push, q4h tramadol 50 mg Tablet 50 mg 1 tab(s), Oral, BID Lab Results 02/06 04:09 WBC: 4.5 Hgb: 10.7 L Hct: 32.8 L Platelet: 215 Neutrophil %: 62.7 Glucose Level: 94 Sodium Level: 141 Potassium Level: 4.2 BUN: 10.0 Creatinine Lvl (s): 0.70 EKG No qualifying data available. Assessment/Plan 1. Enterococcal bacteremia 2. Aortic valve echodensity 3. Moderate aortic stenosis 4. Hypertension 5. Hyperlipidemia 6. Hypothyroidism 7. CAD 8. GERD Plan: - SALAZAR ordered and pending for further evaluation of mobile echodensity on aortic valve. - SALAZAR will likely be done on 02/08/2024. Diet ordered. Will place n.p.o. at midnight order. Case discussed with attending physician, Dr. Allen. Please see addendum for any further changes. Digitally Signed by ALIA MCCORMACK MD on 02/07/2024 05:47 PM [id number] Infectious disease Progress note Date of Service 02/07/2024 Chief Complaint E faecalis bacteremia Subjective Patient seen and independently evaluated bedside. She is resting in bed comfortably in no acute distress. No active complaints. Plan is for SALAZAR. No fever, chills or night sweats. No nausea, vomiting or diarrhea. No abdominal complaints. No urinary complaints. Objective Vitals and Measurements T: 36.6 C (Oral) TMIN: 36.6 C (Oral) TMAX: 36.7 C (Oral) HR: 70 RR: 18 BP: 131/56 SpO2: 94% Intake and Output 7AM Yesterday to 7AM Today Intake and Output (Last 24 hours) Intake Oral Intake 720.00 Output Urinary Catheter Output: 1975.00 Stool Count 0.00 Total Summary Total Intake 720.00 Total Output 1975.00 Fluid Balance -1255.00 Physical Exam General: No acute distress. Alert and Appropriate Skin: No rash. Warm, Dry, Intact Lungs: Bilaterally clear breath sounds with no crepitation or wheeze. Cardiovascular: Heart is regular rhythm, S1S2, No extra-audible heart tones Abdomen: Abdomen is soft, nontender. Bowel sounds positive all four quadrants. Extremities: No clubbing, cyanosis or edema. Peripheral pulses palpable. Adequate peripheral circulation. Neurological: The patient is awake, oriented to person, place and time. Following simple commands, moving all extremities. Weight Dosing Weight: 76.8 kg (02/05/24) Dosing Weight: 76.8 kg (02/05/24) Medications Medications (14) Active Scheduled: (8) ampicillin in NS 100mL 2 gram(s) 100 mL, IV Piggyback, q4h aspirin 81 mg Chewable 81 mg 1 tab(s), Oral, BID atorvastatin 10 mg tablet 10 mg 1 tab(s), Oral, qHS carvedilol 3.125 mg tablet 3.125 mg 1 tab(s), Oral, BIDM cefTRIAXone IVP syringe 2 gram(s) 20 mL, IV Push (INT), q12h levothyroxine 88 mcg tablet 88 mcg 1 tab(s), Oral, Wed//Wed//Wed levothyroxine 88 mcg tablet 88 mcg 1 tab(s), Oral, Wednesday omeprazole [address] capsule 20 mg 1 cap(s), Oral, qDay Continuous: (0) PRN: (6) acetaminophen 325 mg Tablet 650 mg 2 tab(s), Oral, q6hWA dextrose 50% Solution Disp syringe 50 mL 12.5 gram(s) 25 mL, IV Push, AsDirected melatonin 3 mg tablet 3 mg 1 tab(s), Oral, qHS melatonin 3 mg tablet 3 mg 1 tab(s), Oral, qHS ondansetron 2 mg/ 1 mL 2 mL INJ 4 mg 2 mL, IV Push, q4h tramadol 50 mg Tablet 50 mg 1 tab(s), Oral, BID Lab Results 02/06 04:09 WBC: 4.5 Hgb: 10.7 L Hct: 32.8 L Platelet: 215 Neutrophil %: 62.7 Glucose Level: 94 Sodium Level: 141 Potassium Level: 4.2 BUN: 10.0 Creatinine Lvl (s): 0.70 02/05 05:21 WBC: 4.2 L Hgb: 9.5 L Hct: 28.6 L Platelet: 219 Neutrophil %: 64.6 Glucose Level: 93 Sodium Level: 140 Potassium Level: 4.1 BUN: 9.0 Creatinine Lvl (s): 0.61 Imaging Results and Diagnostics NA EKG No qualifying data available. Assessment/Plan 1. E faecalis bacteremia 2. Possible UTI 3. Aortic valve endocarditis 83-year-old female with history of hypothyroidism, hypertension, GERD and aortic stenosis presents to the ER with increasing weakness. Noted to have 2 sets of blood cultures positive for E faecalis at [facility] with echocardiogram showing filiform strand-like echodensity so was transferred to [place] for further evaluation. ID has been following for E faecalis bacteremia. High-grade E faecalis bacteremia. Repeat blood cultures on 02/05 show no growth to date. TTE shows small mobile echodensity on AV valve measuring 3 to [address] of the abdomen/pelvis negative for acute findings. No fever or leukocytosis. Plan Await SALAZAR. Continue ceftriaxone, ampicillin. Will likely need 6 weeks of IV antibiotics through PICC line upon discharge for aortic valve endocarditis. Plan of care discussed in depth with patient. All questions answered. Patient verbalized understanding and is agreeable to plan of care. Discussed with my collaborating physician Dr. Cipriano Dang. Any changes to the plan will be added to end as an addendum. Time Spent I spent a total of 39 minutes reviewing the patient s diagnostic labs/tests, seeing and examining the patient and documenting in the medical record, see assessment for further detail. Digitally Signed by JANAY SINHA on 02/07/2024 08:29 PM [id number] Palliative care Progress note Date of Service 02/07/24 Chief Complaint Weakness Subjective Information obtained through chart review as well as speaking with the patient. Patient is denying any new issues or concerns. Patient is resting comfortably in her bed. Denies any pain or shortness of breath. Unfortunately, the SALAZAR cannot be completed today. Objective Vitals and Measurements T: 36.6 C (Oral) TMIN: 36.6 C (Oral) TMAX: 36.7 C (Oral) HR: 76 (Monitored) RR: 18 BP: 131/56 SpO2:94% Intake and Output 7AM Yesterday to 7AM Today Intake and Output (Last 24 hours) Intake Oral Intake 720.00 Output Urinary Catheter Output: 1974. Stool Count 0.00 Total Summary Total Intake 720.00 Total Output 1975.00 Fluid Balance -1255.00 Physical Exam General no acute distress Respirations CTA, easy and unlabored Cardiovascular S1 and S2 GI bowel sounds present x 4, soft, round, nontender Neurological alert and orient x 3 Weight Dosing Weight: 76.8 kg (02/05/24) Dosing Weight: 76.8 kg (02/05/24) Medications Medications (14) Active Scheduled: (8) ampicillin in NS 100mL 2 gram(s) 100 mL, IV Piggyback, q4h aspirin 81 mg Chewable 81 mg 1 tab(s), Oral, BID atorvastatin 10 mg tablet 10 mg 1 tab(s), Oral, qHS carvedilol 3.125 mg tablet 3.125 mg 1 tab(s), Oral, BIDM cefTRIAXone IVP syringe 2 gram(s) 20 mL, IV Push (INT), q12h levothyroxine 88 mcg tablet 88 mcg 1 tab(s), Oral, Wed//Wed//Wed levothyroxine 88 mcg tablet 88 mcg 1 tab(s), Oral, Wednesday omeprazole [address] capsule 20 mg 1 cap(s), Oral, qDay Continuous: (0) PRN: (6) acetaminophen 325 mg Tablet 650 mg 2 tab(s), Oral, q6hWA dextrose 50% Solution Disp syringe 50 mL 12.5 gram(s) 25 mL, IV Push, AsDirected melatonin 3 mg tablet 3 mg 1 tab(s), Oral, qHS melatonin 3 mg tablet 3 mg 1 tab(s), Oral, qHS ondansetron 2 mg/ 1 mL 2 mL INJ 4 mg 2 mL, IV Push, q4h tramadol 50 mg Tablet 50 mg 1 tab(s), Oral, BID Lab Results 02/06 04:09 WBC: 4.5 Hgb: 10.7 L Hct: 32.8 L Platelet: 215 Neutrophil %: 62.7 Glucose Level: 94 Sodium Level: 141 Potassium Level: 4.2 BUN: 10.0 Creatinine Lvl (s): 0.70 02/05 05:21 WBC: 4.2 L Hgb: 9.5 L Hct: 28.6 L Platelet: 219 Neutrophil %: 64.6 Glucose Level: 93 Sodium Level: 140 Potassium Level: 4.1 BUN: 9.0 Creatinine Lvl (s): 0.61 EKG No qualifying data available. Assessment/Plan Palliative care encounter for an 83-year-old female past medical history significant for aortic valve stenosis, hyperlipidemia, hiatal hernia, GERD, and hypothyroidism. [facility] SALAZAR done. Palliative care was consulted to assist with goals of care. Goals of care patient expresses that she is not ready to . She wishes to continue with her current level of care. Not sure that patient would benefit from palliative care at this point, she is nothaving any unmanaged symptoms. In the event that she were to want palliative care she would need [place]'s palliative care and hospice team as she lives outside of our jurisdiction. CODE STATUS confirmed patient's CODE STATUS is a DNR CCA DNI. Advanced directives patient expresses that she has a healthcare power of trademark attorney she is named her daughter Stefano. Bacteremia blood cultures were positive for growing Enterococcus faeclis. Patient getting IV antibiotics. Cardiology was consulted for consideration of a SALAZAR. Order for SALAZAR is in place, unfortunately cannot be completed today. Chronic diastolic congestive heart failure echocardiogram showing an ejection fraction of 55 to 60%, positive for diastolic dysfunction. Also showing a moderate aortic valve stenosis. Large hiatal hernia this was found on the CT scan done of the abdomen and pelvis. Patient not having any issues eating and drinking. Labs, diagnostics, hospitalist note, cardiology note all reviewed. Palliative care will be signing off the case as patient is getting goal congruent care and has no further inpatient palliative care needs. Digitally Signed by MARIA ESTHER ALBRIGHT on 02/07/2024 10:39 AM [id number] Note. MICRO - Microbiology PROCEDURE: Blood Culture (bacterial) [*1] SOURCE: Blood BODY SITE: COLLECTED DATE/TIME: 02/03/2024 05:50 EDT RECEIVED DATE/TIME: 02/03/2024 15:21 EDT START DATE/TIME: 02/03/2024 15:21 EDT FREE TEXT SOURCE: FINAL REPORTS Final Report [] Verified Date/Time/Personnel: 02/06/2024 10:55 EDT Enterococcus faecalis Isolated from anaerobe bottle only. Refer to previous culture for susceptibility. [id number] PRELIMINARY REPORTS Preliminary Report [] Verified Date/Time/Personnel: 02/03/2024 15:59 EDT Culture has been received in lab and is no growth to date. Routine cultures are held for 5 days. STAINS GSANA [] Verified Date/Time/Personnel: 02/05/2024 07:33 EDT Gram Positive Cocci in pairs Performing Locations *1: This test was performed at: [facility], [address] [place] [address], [id number] , [facility] [place] ([place])02-05-2024 Infectious disease Consult note Date of Service February 05, 2024 Reason for Consultation Bacteremia Referring Physician Hospitalist service History of Present Illness 83-year-old female with history of hypothyroidism, hypertension, GERD and aortic stenosis who was transferred for bacteremia need of SALAZAR, clinically the patient is a poor historian, denies chest painor shortness of breath, denies any acute symptoms but admitted that she had UTIs, I reviewed with her at length her hospitalization course and labs and data imaging studies and all her questions were answered, she was comfortable in bed having [facility] Review of Systems Fatigue at times otherwise 10 point review of systems negative Physical Exam Vitals and Measurements T: 36.8 C (Oral) TMIN: 36.7 C (Oral) TMAX: 37.1 C (Oral) HR: 75 (Monitored) RR: 18 BP: 122/61 SpO2:96% HT: 152.4 cm WT: 76.8 kg BMI: 33.07 Weight Dosing Weight: 76.8 kg (02/05/24) Dosing Weight: 76.8 kg (02/05/24) General Appearance: Awake, alert, and oriented HEENT: Normocephaly. PERRL Neck: Normal without lymphadenopathy Cardiac: Heart regular rhythm Lungs: Clear Abdomen: Soft, non-tender, non-distended Extremities:Warm without clubbing, cyanosis or edema. Neurological: No deficits Skin: Warm, dry, intact. No rashes Psychiatric: No abnormal behaviors Lab Results 02/04 05:07 WBC: 3.2 L Hgb: 10.0 L Hct: 30.3 L Platelet: 208 Neutrophil %: 57.4 Glucose Level: 85 Sodium Level: 142 Potassium Level: 4.1 BUN: 12.0 Creatinine Lvl (s): 0.59 Imaging Results and Diagnostics Reviewed CT scan of the abdomen and pelvic area with no acute infectious abnormality Assessment/Plan Orders: ampicillin, 2 gram(s)= 100 mL, IV Piggyback, q4h cefTRIAXone, 2 gram(s)= 20 mL, IV Push (INT), q12h Enterococcus faecalis bacteremia for SALAZAR evaluation Reported Takotsubo cardiomyopathy 01/[address] 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, 01/2024 Moderate aortic stenosis TTE 01/2024 with possible aortic valve abnormality Hypothyroidism, hyperlipidemia, GERD, hypertension CVC: SRP Possible UTI Aortic valve endocarditis The patient is clinically comfortable Will adjust antimicrobial therapy to high-dose IV ampicillin in addition to twice daily ceftriaxone Concern of endocarditis, SALAZAR as per cardiology Repeat cultures are negative Clinically the patient is stable Discussed the plan of care with her and all her questions were answered Thank you for allowing me to see this patient in consultation Problem List/Past Medical History Ongoing Acquired hypothyroidism Dyslipidemia Gastro-esophageal reflux Hiatal hernia History of pulmonary embolus Pelvic mass Historical Benign hypertension Fever Rash Severe aortic valve stenosis UTI (urinary tract infection) Procedure/Surgical History Cardiac catheterization: 01/21/24 Echocardiogram: 09/09/23 Cataract extraction Medications Inpatient acetaminophen, 650 mg= 2 tab(s), Oral, q6hWA, PRN ampicillin, 2 gram(s)= 100 mL, IV Piggyback, q4h aspirin 81 mg oral tablet, chewable, 81 mg= 1 tab(s), Oral, BID atorvastatin, 10 mg= 1 tab(s), Oral, qHS cefTRIAXone, 2 gram(s)= 20 mL, IV Push (INT), q12h Coreg, 3.125 mg= 1 tab(s), Oral, BIDM Dextrose 50% IV Push, 12.5 gram(s)= 25 mL, IV Push, AsDirected, PRN levothyroxine, 88 mcg= 1 tab(s), Oral, Wed//Wed//Wed melatonin, 3 mg= 1 tab(s), Oral, qHS, PRN melatonin, 3 mg= 1 tab(s), Oral, qHS, PRN omeprazole, 20 mg= 1 cap(s), Oral, qDay Synthroid, 88 mcg= 1 tab(s), Oral, Wednesday traMADol, 50 mg= 1 tab(s), Oral, BID, PRN Zofran, 4 mg= 2 mL, IV Push, q4h, PRN Home aspirin 81 mg oral tablet, chewable, 81 mg= 1 tab(s), Oral, BID calcium (as carbonate)-vitamin D 500 mg-200 intl units oral tablet, 1 tab(s), Oral, Daily Coreg 3.125 mg oral tablet, 3.125 mg= 1 tab(s), Oral, BIDM Lasix 20 mg oral tablet, 20 mg= 1 tab(s), Oral, qDay, PRN, 3 refills levothyroxine 88 mcg (0.088 mg) oral tablet, See Instructions lovastatin 40 mg oral tablet, 40 mg= 1 tab(s), Oral, Daily omeprazole 20 mg oral delayed release capsule, 20 mg= 1 cap(s), Oral, qDay traMADol 50 mg oral tablet, 50 mg= 1 tab(s), Oral, BID, PRN Allergies Macrobid Upset stomach Social History Alcohol Use: Never., 03/26/2023 Nutrition/Health Caffeine intake amount: 1 cup decaf daily., 03/26/2023 Substance Abuse Use: Never., 03/26/2023 Tobacco Nicotine Use: Never (less than 100 in lifetime)., 09/16/2023 Family History Patient was adopted Immunizations pneumococcal 13-valent conjugate vaccine: 0 unknown unit (02/27/16) pneumococcal 23-valent vaccine(Pneumovax: 0.5 unknown unit (02/26/17) SARS-CoV-2 mRNA (tozinameran) vaccine: 0.3 unknown unit (08/12/21) SARS-CoV-2 mRNA (tozinameran) vaccine: 0.5 unknown unit (09/29/20) SARS-CoV-2 mRNA (tozinameran) vaccine: 0.5 unknown unit (09/05/20) Digitally Signed by LINDA ANNE BA, MD on 02/05/2024 05:13 PM [id number] Palliative care Consult note Date of Service February 05, [address] Obrien Chief complaint Weakness Reason for Consult Goals of care Participants in Discussion Pt and dght Stefano History of Present Illness Mrs. Washington is a 83-year-old female past medical history significant for severe aortic valve stenosis, hyperlipidemia, hiatal hernia, GERD, and hypothyroidism. Information obtained through chart review as well as speaking with the patient. She was transferred from [place] for further evaluationfor bacteremia, and consideration of a SALAZAR. Patient's blood cultures were positive for growing Enterococcus faeclis. Patient has been started on ampicillin. TTE was obtained which showed filiform strand-like echodensity, vegetation was felt less likely. Patient's echocardiogram showed an ejection fraction of 55 to 60%, diastolic dysfunction was present. She had a CT scan done of her abdomen and pe lvis that showed a large hiatal hernia and, no other pathology. Again, patient was transferred for SALAZAR. Patient is resting in bed. Patient is denying any chest pain or shortness of breath. Patient deniesany abdominal pain, nausea, vomiting, diarrhea or constipation. Review of Systems As in HPI all other systems reviewed and are negative. Physical Exam Vitals and Measurements T: 37.1 C (Oral) TMIN: 36.7 C (Oral) TMAX: 37.1 C (Oral) HR: 66 RR: 20 BP: 119/57 SpO2: 95% HT: 152.4 cm WT: 76.8 kg BMI: 33.07 Weight Dosing Weight: 76.8 kg (02/05/24) Dosing Weight: 76.8 kg (02/05/24) GENERAL: The patient is pleasant, cooperative. No acute distress. SKIN: No skin rashes or lesions are noted. No cyanosis, clubbing. HEENT: Head is normocephalic and atraumatic. The neck is supple with a full range of motion. Cardiovascular: Regular rate and rhythm. S1S2. No murmur. No edema. Respiratory: Clear to auscultation. Unlabored. GI: Soft round and nontender. BSx4. Neurological: Alert and oriented x3. No neurological deficits noted. Musculoskeletal: No muscle wasting. +Weakness. No gross deformity. Psych: No agitation noted. Lab Results 02/04 05:07 WBC: 3.2 L Hgb: 10.0 L Hct: 30.3 L Platelet: 208 Neutrophil %: 57.4 Glucose Level: 85 Sodium Level: 142 Potassium Level: 4.1 BUN: 12.0 Creatinine Lvl (s): 0.59 Palliative Assessment and Recommendations Of care encounter for an 83-year-old female past medical history significant for aortic valve stenosis, hyperlipidemia, hiatal hernia, GERD, and hypothyroidism. Patient was transferred to our hospital for bacteremia to have a SALAZAR done. Palliative care was consulted to assist with goals of care. Goals of care patient expresses that she is not ready to . She wishes to continue with her current level of care. CODE STATUS confirmed patient's CODE STATUS is a DNR CCA DNI. Advanced directives patient expresses that she has a healthcare power of trademark attorney she is named her daughter Stefano. Bacteremia blood cultures were positive for growing Enterococcus faeclis. Patient getting IV antibiotics. Cardiology was consulted for consideration of a SALAZAR. Chronic diastolic congestive heart failure echocardiogram showing an ejection fraction of 55 to 60%, positive for diastolic dysfunction. Also showing a moderate aortic valve stenosis. Large hiatal hernia this was found on the CT scan done of the abdomen and pelvis. Patient not having any issues eating and drinking. Labs, diagnostics, hospitalist note, cardiology note all reviewed. Thank you very much for this consult allowing me to participate in the care of your patient. Problem List/Past Medical History Ongoing Acquired hypothyroidism Dyslipidemia Gastro-esophageal reflux Hiatal hernia History of pulmonary embolus Pelvic mass Historical Benign hypertension Fever Rash Severe aortic valve stenosis UTI (urinary tract infection) Procedure/Surgical History Cardiac catheterization: 01/21/24 Echocardiogram: 09/09/23 Cataract extraction Medications Inpatient acetaminophen, 650 mg= 2 tab(s), Oral, q6hWA, PRN ampicillin, 2 gram(s)= 100 mL, IV Piggyback, q4h aspirin 81 mg oral tablet, chewable, 81 mg= 1 tab(s), Oral, BID atorvastatin, 10 mg= 1 tab(s), Oral, qHS cefTRIAXone, 2 gram(s)= 20 mL, IV Push (INT), q12h Coreg, 3.125 mg= 1 tab(s), Oral, BIDM Dextrose 50% IV Push, 12.5 gram(s)= 25 mL, IV Push, AsDirected, PRN levothyroxine, 88 mcg= 1 tab(s), Oral, Wed//Wed//Wed melatonin, 3 mg= 1 tab(s), Oral, qHS, PRN melatonin, 3 mg= 1 tab(s), Oral, qHS, PRN omeprazole, 20 mg= 1 cap(s), Oral, qDay Synthroid, 88 mcg= 1 tab(s), Oral, Wednesday traMADol, 50 mg= 1 tab(s), Oral, BID, PRN Zofran, 4 mg= 2 mL, IV Push, q4h, PRN Home aspirin 81 mg oral tablet, chewable, 81 mg= 1 tab(s), Oral, BID calcium (as carbonate)-vitamin D 500 mg-200 intl units oral tablet, 1 tab(s), Oral, Daily Coreg 3.125 mg oral tablet, 3.125 mg= 1 tab(s), Oral, BIDM Lasix 20 mg oral tablet, 20 mg= 1 tab(s), Oral, qDay, PRN, 3 refills levothyroxine 88 mcg (0.088 mg) oral tablet, See Instructions lovastatin 40 mg oral tablet, 40 mg= 1 tab(s), Oral, Daily omeprazole 20 mg oral delayed release capsule, 20 mg= 1 cap(s), Oral, qDay traMADol 50 mg oral tablet, 50 mg= 1 tab(s), Oral, BID, PRN Allergies Macrobid Upset stomach Social History Alcohol Use: Never., 03/26/2023 Nutrition/Health Caffeine intake amount: 1 cup decaf daily., 03/26/2023 Substance Abuse Use: Never., 03/26/2023 Tobacco Nicotine Use: Never (less than 100 in lifetime)., 09/16/2023 Family History Patient was adopted Code Status Code Status - Ordered -- 02/05/24 2:56:00 EDT, DNRCC-Arrest Do Not Intubate, Constant Order Digitally Signed by MARIA ESTHER ALBRIGHT APRN-KACI on 02/05/2024 02:14 PM [id number] Evaluation + Plan noteExtracted from: Title:History and Physical Author:DANIEL OBRIEN ON Date:02/05/24 Bacteremia. Patient is trans ferred here for further evaluation. Growing Enterococcus faecalis sensitive to ampicillin. She is admitted for further evaluation. Consult ID Continue ampicillin Consult cardiology for reevaluation for SALAZAR Urinary retention. She has been requiring intermittent straight catheterization. Noted to have retained 200 cc of urine per nursing staff. Okay for continued intermittent as needed catheterization. Hypothyroidism. Chronic. Continue home medications. HTN. BP stable. -Continue carvedilol. HLD. Chronic. Continue statin. GERD. Chronic. Likely related to patient's large hiatal hernia. Continue PPI. Chronic pain. No acute issues. Continue tramadol as needed for pain. Medications were not verified by pharmacy at the time of this dictation. Reconciliation to be completed once medications are verified; will address additional chronic medical problems at that time. DVT prophylaxis: SCDs Note dictated using voice recognition software and may contain typographical errors. Future Appointments Appointment Date:08/21/2024 11:00:00 AM Scheduled Provider: Location:[facility] Appointment Type:Echo - Echocardiogram Adult Appointment Date:09/21/2024 01:15:00 PM Scheduled Provider: Location:[facility] Appointment Type:[facility] 06-29-2024 Cardiology Consult note Date of Service 02/05/2024 Reason for Consultation Bacteremia Review of Systems Apart from mentioned in HPI, pertinent review of systems is negative. Physical Exam Vitals and Measurements T: 36.9 C (Oral) TMIN: 36.7 C (Oral) TMAX: 36.9 C (Oral) HR: 65 (Apical) RR: 22 BP: 123/53 SpO2: 96% HT: 152.4 cm WT: 76.8 kg BMI: 33.07 Weight Dosing Weight: 76.8 kg (02/05/24) Dosing Weight: 76.8 kg (02/05/24) General: well looking, no acute distress, on no supplemental oxygen Cardiovascular: RRR, euvolemic, well perfused Lab Results 02/04 05:07 WBC: 3.2 L Hgb: 10.0 L Hct: 30.3 L Platelet: 208 Neutrophil %: 57.4 Glucose Level: 85 Sodium Level: 142 Potassium Level: 4.1 BUN: 12.0 Creatinine Lvl (s): 0.59 Assessment/Plan Enterococcus faecalis bacteremia for SALAZAR evaluation Reported Takotsubo cardiomyopathy 01/[address] 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, who is admitted to the internal medicine service as a transfer for bacteremia, unclear presenting symptoms as the patient is unable to provide meaningful history. Cardiology was consulted for transesophageal echocardiogram. The patient is alert and oriented, able to make medical decisions, she denies dysphagia, abdominal ulcers, allergies or reactions to anesthesia or sedation. Recommendation: SALAZAR ordered Awaiting ID recommendations Case to be discussed with Dr. Nuha Curtis MD Procurement Manager Messenger guille or Pager [phone] Problem List/Past Medical History Ongoing Acquired hypothyroidism Dyslipidemia Gastro-esophageal reflux Hiatal hernia History of pulmonary embolus Pelvic mass Historical Benign hypertension Fever Rash Severe aortic valve stenosis UTI (urinary tract infection) Procedure/Surgical History Cardiac catheterization: 01/21/24 Echocardiogram: 09/09/23 Cataract extraction Medications Inpatient acetaminophen, 650 mg= 2 tab(s), Oral, q6hWA, PRN ampicillin, 2 gram(s)= 100 mL, IV Piggyback, q6hr aspirin 81 mg oral tablet, chewable, 81 mg= 1 tab(s), Oral, BID atorvastatin, 10 mg= 1 tab(s), Oral, qHS Coreg, 3.125 mg= 1 tab(s), Oral, BIDM Dextrose 50% IV Push, 12.5 gram(s)= 25 mL, IV Push, AsDirected, PRN levothyroxine, 88 mcg= 1 tab(s), Oral, Wed//Wed//Wed melatonin, 3 mg= 1 tab(s), Oral, qHS, PRN melatonin, 3 mg= 1 tab(s), Oral, qHS, PRN omeprazole, 20 mg= 1 cap(s), Oral, qDay Synthroid, 88 mcg= 1 tab(s), Oral, Wednesday traMADol, 50 mg= 1 tab(s), Oral, BID, PRN Zofran, 4 mg= 2 mL, IV Push, q4h, PRN Home aspirin 81 mg oral tablet, chewable, 81 mg= 1 tab(s), Oral, BID calcium (as carbonate)-vitamin D 500 mg-200 intl units oral tablet, 1 tab(s), Oral, Daily Coreg 3.125 mg oral tablet, 3.125 mg= 1 tab(s), Oral, BIDM Lasix 20 mg oral tablet, 20 mg= 1 tab(s), Oral, qDay, PRN, 3 refills levothyroxine 88 mcg (0.088 mg) oral tablet, See Instructions lovastatin 40 mg oral tablet, 40 mg= 1 tab(s), Oral, Daily omeprazole 20 mg oral delayed release capsule, 20 mg= 1 cap(s), Oral, qDay traMADol 50 mg oral tablet, 50 mg= 1 tab(s), Oral, BID, PRN Allergies Macrobid Upset stomach Social History Alcohol Use: Never., 03/26/2023 Nutrition/Health Caffeine intake amount: 1 cup decaf daily., 03/26/2023 Substance Abuse Use: Never., 03/26/2023 Tobacco Nicotine Use: Never (less than 100 in lifetime)., 09/16/2023 Family History Patient was adopted Immunizations pneumococcal 13-valent conjugate vaccine: 0 unknown unit (02/27/16) pneumococcal 23-valent vaccine(Pneumovax: 0.5 unknown unit (02/26/17) SARS-CoV-2 mRNA (tozinameran) vaccine: 0.3 unknown unit (08/12/21) SARS-CoV-2 mRNA (tozinameran) vaccine: 0.5 unknown unit (09/29/20) SARS-CoV-2 mRNA (tozinameran) vaccine: 0.5 unknown unit (09/05/20) Digitally Signed by CANDIDA CURTIS MD on 02/05/2024 12:07 PM Digitally Signed by CANDIDA CURTIS MD on 02/05/2024 01:36 PM [id number] History and physical note Date of Service 02/05/24 Chief Complaint Bacteremia, need for SALAZAR History of Present Illness 83-year-old female with PMHx hypothyroidism, HLD, GERD, HTN, aortic stenosis presents to the hospital as a transfer for bacteremia and need for SALAZAR. History is obtained by chart review and patient. History of patient is limited due to memory issues. The patient denies any fever, chills, nausea or vomiting, changes in urination, changes in bowel habits, skin breakdown, rigors, other acute issues. She has no headache, chest pain, abdominal pain. She was admitted to [facility] On 02/01/2024. Prior to that, she was in the transitional careunit receiving PT. She was noted to have positive blood cultures growing Enterococcus faecalis. Started on ampicillin. Initially, she was hesitant to have further evaluation. TTE was obtained which showed filiform strand-like echodensity. Vegetation felt less likely. Recommended for SALAZAR and she initially refused. CT abdomen pelvis obtained 02/02/2024 which showed large hiatal hernia, no other pathology. Vital stable on arrival to the floor. BMP has remained stable. CBC shows chronic stable anemia. Physical Exam Vitals and Measurements T: 36.7 C (Oral) HR: 66 (Apical) RR: 18 BP: 136/55 SpO2: 96% HT: 152.4 cm WT: 76.8 kg BMI: 33.07 Weight Dosing Weight: 76.8 kg (02/05/24) Dosing Weight: 76.8 kg (02/05/24) GA: Oriented to self only. Believes that she is in [place] and the year is 2012. Abd: Not distended. Nontender throughout HEENT: NCAT, sclera anicteric, oral mucosa moist Pulmonary: No tachypnea or use of accessory respiratory muscles. MSK: No gross deformities Cardiovascular: Not tachycardic. Notable aortic position murmur, systolic. Skin: Warm and dry Neuro: Spontaneous movement of all extremities, cranial nerves II through XII grossly normal Psychiatric: Thought content, associations, attention are all normal. Lab Results WBC: 4.8 10^3/mcL (02/04/24 07:21:00) RBC: 3.05 10^6/mcL Low (02/04/24 07:21:00) Hgb: 9.5 G/dL Low (02/04/24 07:21:00) Hct: 28.7 % Low (02/04/24 07:21:00) MCV: 93.9 fL (02/04/24 07:21:00) MCH: 31.1 pg (02/04/24 07:21:00) MCHC: 33.1 G/dL (02/04/24 07:21:00) RDW: 15.9 % High (02/04/24 07:21:00) Platelet: 187 10^3/mcL (02/04/24 07:21:00) MPV: 7.4 fL (02/04/24 07:21:00) Neutrophil %: 67.8 % (02/04/24 07:21:00) Lymphocyte %: 16.1 % (02/04/24 07:21:00) Monocyte %: 11.2 % (02/04/24 07:21:00) Eosinophil %: 3.5 % (02/04/24 07:21:00) Basophil %: 1.4 % (02/04/24 07:21:00) Neutrophil, Absolute: 3.2 10^3/mcL (02/04/24 07:21:00) Lymphocyte, Absolute: 0.8 10^3/mcL (02/04/24 07:21:00) Monocyte, Absolute: 0.5 10^3/mcL (02/04/24 07:21:00) Eosinophil, Absolute: 0.2 10^3/mcL (02/04/24 07:21:00) Basophil, Absolute: 0.1 10^3/mcL (02/04/24 07:21:00) Neutrophil %, Manual: 82 % High (02/02/24 07:25:58) Lymphocyte %, Manual: 13 % (02/02/24 07:25:58) Monocyte %, Manual: 5 % (02/02/24 07:25:58) Eosinophil %, Manual: 0 % (02/02/24 07:25:58) Basophil %, Manual: 0 % (02/02/24 07:25:58) Bands: 5 % (02/01/24 14:45:00) Nucleated RBC: 0 /100 WBC (02/02/24 07:25:58) Neutrophil, Abs Manual: 6.8 10^3/mcL High (02/02/24 07:25:58) Lymphocyte, Abs Manual: 1.1 10^3/mcL (02/02/24 07:25:58) Monocyte, Abs Manual: 0.4 10^3/mcL (02/02/24 07:25:58) Eosinophil, Abs Manual: 0 10^3/mcL (02/02/24 07:25:58) Basophil, Abs Manual: 0 10^3/mcL (02/02/24 07:25:58) Platelet Estimate: Adequate (02/02/24 07:25:58) Anisocytosis: 1+ (02/02/24 07:25:58) Microcytosis: 1+ (02/02/24 07:25:58) Ovalocytes: 1+ (02/01/24 14:45:00) Toxic Gran: 1+ (02/01/24 14:45:00) Vacuolated Neutrophils: 1+ (02/01/24 14:45:00) UA Specimen Type: Straight Cath (01/30/24 18:15:00) UA Color: Yellow (01/30/24 18:15:00) UA Appear: Clear (01/30/24 18:15:00) UA Spec Grav: 1.020 (01/30/24 18:15:00) UA Glucose: Negative. (01/30/24 18:15:00) UA Bili: Negative. (01/30/24 18:15:00) UA Ketones: Negative. (01/30/24 18:15:00) UA Blood: Negative. (01/30/24 18:15:00) UA pH: 7.0 (01/30/24 18:15:00) UA Protein: Negative.1 (01/30/24 18:15:00) UA Urobilinogen: 2.0 Abnormal (01/30/24 18:15:00) UA Nitrite: Negative. (01/30/24 18:15:00) UA Leuk Est: Negative. (01/30/24 18:15:00) Glucose Level: 86 mg/dL (02/04/24 07:21:00) Sodium Level: 141 mmol/L (02/04/24 07:21:00) Potassium Level: 3.9 mmol/L (02/04/24 07:21:00) Chloride: 104 mmol/L (02/04/24 07:21:00) CO2: 29 mmol/L (02/04/24 07:21:00) Electrolyte Balance: 8 mEq/L (02/04/24 07:21:00) BUN: 11 mg/dL (02/04/24 07:21:00) Creatinine Lvl (s): 0.68 mg/dL (02/04/24 07:21:00) BUN/Creatinine Ratio: 16 ratio (02/04/24 07:21:00) Calcium Lvl: 8 mg/dL Low (02/04/24 07:21:00) Magnesium Lvl: 2 mg/dL (02/04/24 07:21:00) Total Protein: 6.6 G/dL (02/01/24 14:45:00) Albumin Level: 2.5 G/dL Low (02/01/24 14:45:00) Globulin: 4.1 G/dL (02/01/24 14:45:00) A/G Ratio: 0.6 ratio Low (02/01/24 14:45:00) Bili Total: 0.6 mg/dL (02/01/24 14:45:00) Alk Phos: 90 U/L (02/01/24 14:45:00) AST/SGOT: 39 U/L (02/01/24 14:45:00) ALT/SGPT: 41 U/L (02/01/24 14:45:00) GFR Non-: 82 ml/min/1.73sqm (02/04/24 07:21:00) GFR : 100 ml/min/1.73sqm (02/04/24 07:21:00) Lactic Acid Lvl: 1.3 mmol/L (01/31/24 05:28:00) SARS-CoV-2 PCR: Cepheid Neg (01/31/24 01:15:00) FLU A PCR: Cepheid Neg (01/31/24 01:15:00) FLU B PCR: Cepheid Neg (01/31/24 01:15:00) RSV PCR: Cepheid Neg (01/31/24 01:15:00) BCID Comment: See Comment (01/31/24 01:15:00) CTX-M (ESBL): Not Applicable BCID2 (01/31/24 01:15:00) IMP (Carbapenemase): Not Applicable BCID2 (01/31/24 01:15:00) KPC (Carbapenemase): Not Applicable BCID2 (01/31/24 01:15:00) MCR-1 (Colistin Resistance): Not Applicable BCID2 (01/31/24 01:15:00) Mec A/C: Not Applicable BCID2 (01/31/24 01:15:00) Mec A/C-MREJ (MRSA): Not Applicable BCID2 (01/31/24 01:15:00) NDM (Carbapenemase): Not Applicable BCID2 (01/31/24 01:15:00) OXA-48 like (Carbapenemase): Not Applicable BCID2 (01/31/24 01:15:00) Van A/B: Not Detected TORCH (01/31/24 01:15:00) VIM (Carbapenemase): Not Applicable BCID2 (01/31/24 01:15:00) Enterococcus faecalis: Detected TORCH Abnormal (01/31/24 01:15:00) Enterococcus faecium: Not Detected TORCH (01/31/24 01:15:00) Listeria monocytogenes: Not Detected TORCH (01/31/24 01:15:00) Staphylococcus: Not Detected TORCH (01/31/24 01:15:00) Staphylococcus aureus: Not Detected TORCH (01/31/24 01:15:00) Staphylococcus epidermidis: Not Detected TORCH (01/31/24 01:15:00) Staphylococcus lugdunensis: Not Detected TORCH (01/31/24 01:15:00) Streptococcus: Not Detected TORCH (01/31/24 01:15:00) Streptococcus agalactiae: Not Detected TORCH (01/31/24 01:15:00) Streptococcus pneumoniae: Not Detected TORCH (01/31/24 01:15:00) Streptococcus pyogenes: Not Detected TORCH (01/31/24 01:15:00) Acinetobacter camryn-baumanii complex: Not Detected TORCH (01/31/24 01:15:00) Bacteroides fragilis: Not Detected TORCH (01/31/24 01:15:00) Enterobacterales: Not Detected TORCH (01/31/24 01:15:00) Enterobacter cloacae Complex: Not Detected TORCH (01/31/24 01:15:00) E. Coli: Not Detected TORCH (01/31/24 01:15:00) Klebsiella aerogenes: Not Detected TORCH (01/31/24 01:15:00) Klebsiella oxytoca: Not Detected TORCH (01/31/24 01:15:00) Klebsiella pneumoniae group: Not Detected TORCH (01/31/24 01:15:00) Proteus: Not Detected TORCH (01/31/24 01:15:00) Salmonella species: Not Detected TORCH (01/31/24 01:15:00) Serratia marcescens: Not Detected TORCH (01/31/24 01:15:00) Haemophilus influenzae: Not Detected TORCH (01/31/24 01:15:00) Neisseria meningitidis (Encapsalated): Not Detected TORCH (01/31/24 01:15:00) Pseudomonas aeruginosa: Not Detected TORCH (01/31/24 01:15:00) Stenotrophomonas maltophilia: Not Detected TORCH (01/31/24 01:15:00) Kasandra albicans: Not Detected TORCH (01/31/24 01:15:00) Kasandra auris: Not Detected TORCH (01/31/24 01:15:00) Kasandra glabrata: Not Detected TORCH (01/31/24 01:15:00) Kasandra krusei: Not Detected TORCH (01/31/24 01:15:00) Kasandra parapsilosis: Not Detected TORCH (01/31/24 01:15:00) Kasandra tropicalis: Not Detected TORCH (01/31/24 01:15:00) Cryptococcus neoformans-gattii: Not Detected TORCH (01/31/24 01:15:00) Culture Blood: POS Critical (02/02/24 06:25:00) Assessment/Plan Bacteremia. Patient is transferred here for further evaluation. Growing Enterococcus faecalis sensitive to ampicillin. She is admitted for further evaluation. Consult ID Continue ampicillin Consult cardiology for reevaluation for SALAZAR Urinary retention. She has been requiring intermittent straight catheterization. Noted to have retained 200 cc of urine per nursing staff. Okay for continued intermittent as needed catheterization. Hypothyroidism. Chronic. Continue home medications. HTN. BP stable. -Continue carvedilol. HLD. Chronic. Continue statin. GERD. Chronic. Likely related to patient's large hiatal hernia. Continue PPI. Chronic pain. No acute issues. Continue tramadol as needed for pain. Medications were not verified by pharmacy at the time of this dictation. Reconciliation to be completed once medications are verified; will address additional chronic medical problems at that time. DVT prophylaxis: SCDs Note dictated using voice recognition software and may contain typographical errors. Problem List/Past Medical History Ongoing Acquired hypothyroidism Dyslipidemia Gastro-esophageal reflux Hiatal hernia History of pulmonary embolus Pelvic mass Historical Benign hypertension Fever Rash Severe aortic valve stenosis UTI (urinary tract infection) Procedure/Surgical History Cardiac catheterization: 01/21/24 Echocardiogram: 09/09/23 Cataract extraction Medications Home Medications (8) Active aspirin 81 mg oral tablet, chewable 81 mg = 1 tab(s), Oral, BID calcium (as carbonate)-vitamin D 500 mg-200 intl units oral tablet 1 tab(s), Oral, Daily Coreg 3.125 mg oral tablet 3.125 mg = 1 tab(s), Oral, BIDM Lasix 20 mg oral tablet 20 mg = 1 tab(s), PRN, Oral, qDay levothyroxine 88 mcg (0.088 mg) oral tablet See Instructions lovastatin 40 mg oral tablet 40 mg = 1 tab(s), Oral, Daily omeprazole 20 mg oral delayed release capsule 20 mg = 1 cap(s), Oral, qDay traMADol 50 mg oral tablet 50 mg = 1 tab(s), PRN, Oral, BID Allergies Macrobid Upset stomach Social History Alcohol Use: Never., 03/26/2023 Nutrition/Health Caffeine intake amount: 1 cup decaf daily., 03/26/2023 Substance Abuse Use: Never., 03/26/2023 Tobacco Nicotine Use: Never (less than 100 in lifetime)., 09/16/2023 Family History Patient was adopted Immunizations pneumococcal 13-valent conjugate vaccine: 0 unknown unit (02/27/16) pneumococcal 23-valent vaccine(Pneumovax: 0.5 unknown unit (02/26/17) SARS-CoV-2 mRNA (tozinameran) vaccine: 0.3 unknown unit (08/12/21) SARS-CoV-2 mRNA (tozinameran) vaccine: 0.5 unknown unit (09/29/20) SARS-CoV-2 mRNA (tozinameran) vaccine: 0.5 unknown unit (09/05/20) Code Status Code Status - Ordered -- 02/05/24 2:56:00 EDT, DNRCC-Arrest Do Not Intubate, Constant Order Digitally Signed by NIGHAT OBRIEN MD on 02/05/2024 03:06 AM [id number] Discharge Instructions Thank you for allowing [facility] to assist you with your healthcare needs. The following is importantdischarge information regarding your hospital visit. Your Care Team ESTER BEJARANO, MONORAIL HELPER Your Diagnosis Bacteremia Hypertension Takotsubo cardiomyopathy Weakness What to do next Scheduled Follow-Up Appointments Appointment Type When Where Contact Information StatusEcho - Echocardiogram Adult 08/21/2024 11:00 AM [facility] Radiology [phone] Confirmed CV OV 09/21/2024 01:15 PM [facility] [place] Confirmed Follow Up Appointments Follow Up with BROOKS OSUNA When:01/10/2024 09:30 AM EDT Where:[address] [address]- Additional Information: This is your post-hospital cardiology appointment. The Following Activity and Diet Have Been Ordered for You No qualifying data available. No qualifying data available. The Following Equipment Has Been Ordered for You No qualifying data available. The Following Treatments Have Been Ordered for You Discharge Labs No qualifying data available. Discharge Radiology No qualifying data available. Other Therapies No qualifying data available. Post Acute Orders No qualifying data available. Someone Will Contact You Regarding These Home Health Referrals No home referrals have been ordered for you. No one will call you. Allergies Macrobid Upset stomach Medications Please ask your primary doctor or pharmacist before taking any other medication not listed, including over the counter drugs, herbal medications, vitamins and or supplements as they may interact withyour home medications. What How Much When Instructions Last Dose Unchanged aspirin (aspirin 81 mg oral tablet, chewable) 1 tab(s) by mouth Two (2) times a day Duration: 5 Days Unchanged calcium-vitamin D (calcium (as carbonate)-vitamin D 500 mg-200 intl units oral tablet) 1 tab(s) by mouth Every day Unchanged carvedilol (Coreg 3.125 mg oral tablet) 1 tab(s) by mouth Twice daily with meals Unchanged furosemide (Lasix 20 mg oral tablet) 1 tab(s) by mouth Once a day as needed for Swelling Unchanged levothyroxine (levothyroxine 88 mcg (0.088 mg) oral tablet) See instructions 1 tab(s) Oral Mon-Sat Hold Sun Unchanged lovastatin (lovastatin 40 mg oral tablet) 1 tab(s) by mouth Every day Unchanged omeprazole (omeprazole 20 mg oral delayed release capsule) 1 cap by mouth Once a day Unchanged traMADol (traMADol 50 mg oral tablet) 1 tab(s) by mouth Two (2) times a day as needed for for pain PRN Please take this list to your next doctor s visit. Bring all medications you take, including over the counter medications, herbals and other supplements with you to your doctor s visit. Patients and families are reminded to discard old lists and to update any records with all medication providers or retail pharmacies. Additional Information VACCINATE! IT SAVES LIVES! Members of the community who have not yet received the COVID-19 vaccine and would like to receive it can visit one of [facility] vaccine clinics. There are many vaccine clinic locations within the [facility]. For locations and available times, please visit [email or web address] It is important to note that some COVID mobile vaccine clinics are held outdoors and may be canceled in rainy or stormy conditions. To learn more about pediatric vaccinations (ages 5-11), we invite you to visit the [facility] webpage. [email or web address].[email or web address].org/pages/[email or web address]-Qipfakvmtny-Yynjrydgxb-[email or web address]-Hsk stions.htmlTo learn more about the COVID-19 vaccine, we invite you to visit the CDC website for a list of frequently asked questions.https://www.cdc.gov/coronavirus/2019-ncov/vaccines/faq.html [facility] Patient Portal Access Instructions: Stay connected with your healthcare team and access your personal medical information anytime with the [facility] Patient Portal. Please follow the directions below to create your [facility] account: 1.Access the email account you provided upon registration to the hospital/physician office.2.Look for an invitation email from [facility].3.Open the email and access the invitation link: AcceptInvitation to [facility].4.Fill in the required martinez to create your account. To access your account, visit [employer]. Click the blue button labeled Access Patient Portal and then log in with the username and password that you created in the steps above. You will be able to view your test results, lab results, a summary of your visits, upcoming appointments and more. There is also a convenient messaging option where you can send secure messages to your p rovider. In addition, you will have the ability to download any documents or summaries to your computer and/or send the information securely to a physician. Remember that your healthcare information is confidential, so carefully consider who you will allowto register on the [facility] Patient Portal for access to your information. You can also access the [facility] Patient Portal on the [employer]where guille. Simply click on Patient Portal and then log into your account. If you would like to receive a full copy of your medical records, please contact the [facility] Medical Records Department by calling [phone], Wednesday through Wednesday between 8 a.m. and 4:30 p.m. HOW TO SAFELY DISPOSE OF PRESCRIPTION MEDICATIONS Please use one of the following methods to safely dispose of your unused medications. 1.Use a drug disposal kit: the drug disposal pouch allows you to safely discard your old and unuseddrugs. Ask your nurse to give you one when you are discharged.2.Visit a local take-back location: Many local pharmacies and police departments have programs that collect old and unwanted prescriptiondrugs. Call your local pharmacy or go to http://Snugg Home.ReelBig/3U2To8y to find one close to you.3.Make use of household items: Use cat litter or old coffee grounds to dispose medications if other options arenot available. Mix your drugs with these household products, seal them in an airtight container andthrow it into the garbage. Call [place]: [phone] to be sure your drugs can be disposed of in this way. Some medicines may require a different approach.4.Never flush your medications down the toilet. IF YOU HAVE BEEN PRESCRIBED AN OPIOID FOR PAIN If you have been prescribed an opioid (such as hydrocodone, oxycodone or morphine), it is critical to understand the possible side effects and risks of opioid pain medications. Even when taken as directed, opioids can have several side effects including: Tolerance, meaning you might need to take more of a medication for the same pain relief. Nausea, vomiting and/or constipation. Sleepiness, dizziness, dry mouth, confusion, depression or itching. Physical dependence, meaning you have withdrawal symptoms when a medication is stopped, can develop within a few days. KNOW YOUR RESPONSIBILITIES It is important to know exactly how much and how often to take the opioid pain medications you are prescribed. Never take opioids in higher amounts or more often than prescribed. Do not combine opioids with alcohol or other drugs that cause drowsiness, such as benzodiazepines, also known as benzos, including diazepam and alprazolam, muscle relaxants or sleep aids. Never sell or share prescription opioids. This is illegal. Store opioids in a secure place and out of reach of others (including children, family, friends and visitors). The last page of this document has been signed and retained as a CHART COPY. Signatures Patient Education Materials Medication Leaflets My discharge plan and instructions have been reviewed and explained to me and FELIX Babcock RACHEL Sunderstand my current condition and have read and understand these discharge instructions. I have received a written copy of the plan/instructions. If I have questions, I am aware that I should contact my doctor. 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 Patient is now agreeable to transfer to another facility for SALAZAR and possible ID consult. Family requests that [facility] be called first. [facility] states no beds today at all and does not offer optionof going on a list. Family is agreeable to transfer to [facility] but there is quite a wait therealso. Patient continues to deny any physical complaints. She has had no further fevers or chills. She denies any cough, shortness of breath, chest pain, abdominal pain, nausea or dysuria. One set of blood cultures were drawn yesterday and, so far, are not showing any growth. Will continue the ampicillin at current dose and schedule. All questions answered. Objective Vitals and Measurements T: 36.6 C (Oral) TMIN: 36.3 C (Oral) TMAX: 36.6 C (Oral) HR: 67 (Monitored) RR: 16 BP: 101/53 SpO2:92% WT: 77 kg Intake and Output 7AM Yesterday to 7AM Today Intake and Output (Last 24 hours) Intake Oral Intake 747.00 Output Stool Count 1.00 Urine Count 6.00 Emesis Count 0.00 Total Summary Total Intake 747.00 Total Output 0.00 Physical Exam General: No acute distress. Patient is alert, chronically ill-appearing. Skin: No rash. Skin is warm, dry and intact. HEENT: Head is normocephalic, atraumatic. Pupils are equal, round and reactive. Neck: Supple. No lymphadenopathy, thyromegaly. Lungs: Bilaterally clear but diminished without crepitation or wheeze. Unlabored. Heart: Heart is regular rhythm, S1, S2. No murmurs, gallops or rubs. Abdomen: Abdomen is soft, nontender. Bowels sounds present in all quadrants. Extremities: No clubbing, cyanosis, or edema. Peripheral pulses palpable. No calf tenderness. Neurological: Patient is awake and alert to person, place and time. Following simple commands, moving all extremities. Weight Current Weight Dosing Weight: 76.2 kg (02/01/24) Current Weight: 77 kg (02/04/24) Dosing Weight: 76.2 kg (02/01/24) Current Weight: 76.2 kg (02/03/24) Dosing Weight: 76.2 kg (02/01/24) Medications Medications (20) Active Scheduled: (10) acetaminophen 500 mg Tablet 1,000 mg 2 tab(s), Oral, TID ampicillin 2 gram(s), IV Piggyback, q4h aspirin 81 mg Chewable 81 mg 1 tab(s), Oral, BID atorvastatin 10 mg tablet 10 mg 1 tab(s), Oral, qDay carvedilol 3.125 mg tablet 3.125 mg 1 tab(s), Oral, BIDM enoxaparin 40 mg/ 0.4mL syringe 40 mg 0.4 mL, Subcutaneous, qDay levothyroxine 88 mcg tablet 88 mcg 1 tab(s), Oral, Wed//Wed//Wed/Wed lidocaine patch REMOVAL 1 EA, Miscellaneous, q24h lidocaine topical 4% patch 2 patch(es), Transdermal, qDay pantoprazole 20 mg EC tablet 20 mg 1 tab(s), Oral, qDayAC Continuous: (0) PRN: (10) acetaminophen 325 mg Tablet 650 mg 2 tab(s), Oral, q4h acetaminophen 325 mg Tablet 650 mg 2 tab(s), Oral, q4h benzonatate 100 mg Capsule 100 mg 1 cap(s), Oral, TID calcium carbonate 500 mg Chewable 500 mg 1 tab(s), Chewed, TID dextrose 50% Solution Disp syringe 50 mL 25 gram(s) 50 mL, IV Push, AsDirected furosemide 20 mg tablet 20 mg 1 tab(s), Oral, qDay guaifenesin 100 mg/5 mL 120 mL liquid 200 mg 10 mL, Oral, q4h melatonin 3 mg tablet 6 mg 2 tab(s), Oral, qHS ondansetron 2 mg/ 1 mL 2 mL INJ 4 mg 2 mL, IV Push, q4h tramadol 50 mg Tablet 50 mg 1 tab(s), Oral, BID Lab Results 02/03 07:21 WBC: 4.8 Hgb: 9.5 L Hct: 28.7 L Platelet: 187 Neutrophil %: 67.8 Glucose Level: 86 Sodium Level: 141 Potassium Level: 3.9 BUN: 11 Creatinine Lvl (s): 0.68 02/02 06:06 WBC: 4.7 Hgb: 9.4 L Hct: 28.1 L Platelet: 187 Neutrophil %: 76.7 Glucose Level: 89 Sodium Level: 141 Potassium Level: 3.9 BUN: 11 Creatinine Lvl (s): 0.66 Imaging Results and Diagnostics CT Abdomen/Pelvis w/Contrast Result Date: February 02, 2024 Verified By: CARLOS MENDOZA MD CLINICAL STATEMENT: IMPRESSION: No acute abnormality. Very large hiatal hernia. EKG No qualifying data available. Assessment/Plan 1. Bacteremia Acute, new onset, unclear source of infection. Blood cultures grew Enterococcus faecalis x 5 sets. Continue ampicillin 2 g every 4 hours x 7 days - started 01/31 at 1400. Stop date 02/08/2024. Urinalysis that was collected was negative. Urine culture from [facility] grew actinomyces naeslundii. She was treated with cefdinir. 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 Low suspicion for infective endocarditis. Patient agreeable to SALAZAR. CT of a/p normal except for large hiatal hernia. Check CBC, BMP, magnesium level. Patient is afebrile and hemodynamically stable. One set of blood cultures drawn yesterday morning so far is showing no growth. Repeated blood culturesx 2 this am. 2. Hypertension Chronic. Continue current antihypertensives. SBP goal of 140. 3. Weakness Chronic. Consult PT and OT. Patient was in TCU requiring transition to inpatient due to bacteremia.Patient accepted by [facility] and has precert good through 02/07. Continue PT and OT while here. 4. Takotsubo cardiomyopathy Found during recent heart cath at [facility]. She was started on Coreg 3.125 mg PO BID. DVT prophylaxis with Lovenox. Code status: DNRCCA - do not intubate. Labs, diagnostic test and progress notes reviewed as noted in HPI. Plan of care discussed with patient. All questions answered. Patient verbalizes understanding and is agreeable with plan of care. This case was discussed with collaborating physician, Dr. Anneliese Chairez. Anticipated Date of Discharge next 24-48 hours Time Spent 35 minutes spent reviewing past diagnostic tests, reviewing lab results, vital sign trends, medicalhistory, reviewing medications and ordering home medications, examining patient, discussed plan of care with care team, collaborating with physician, and documenting in chart. Digitally Signed by KUMAR JAMES on 02/04/2024 03:24 PM [facility]06-28-2024 Note. MICRO - Microbiology PROCEDURE: Blood Culture (bacterial) [*1] SOURCE: Blood BODY SITE: COLLECTED DATE/TIME: 02/02/2024 06:25 EDT RECEIVED DATE/TIME: 02/02/2024 17:02 EDT START DATE/TIME: 02/02/2024 17:02 EDT FREE TEXT SOURCE: FINAL REPORTS Final Report [] Verified Date/Time/Personnel: 02/04/2024 11:35 EDT Enterococcus faecalis Isolated from aerobe bottle only. Refer to previous culture for susceptibility. [id number] collected 01-31-24 PRELIMINARY REPORTS Preliminary Report [] Verified Date/Time/Personnel: 02/02/2024 17:59 EDT Culture has been received in lab and is no growth to date. Routine cultures are held for 5 days. STAINS GSAER [] Verified Date/Time/Personnel: 02/03/2024 05:15 EDT Gram Positive Cocci in pairs SUSCEPTIBILITY RESULTS Enterococcus faecalis Antibiotic ASHLEIGH Dilut ASHLEIGH Inter ID Panel Not Not Applicable Applicable Performing Locations *1: This test was performed at: [facility], [address] [place] [address], [id number] , [facility] ([place])02-03-2024 Note Date of Service 02/03/2024 Chief Complaint bacteremia Subjective Patient seen and evaluated this morning while resting in bed. She continues to deny any complaints at all. She was updated that the CT of her abdomen/pelvis was normal. Patient advised that her echocardiogram showed something unusual so we are recommending that she have a SALAZAR to better evaluate it and determine if this is the source of her bacteremia. Explained to patient what a SALAZAR is and she states I don't think I want to do that right now. Patient advised that if we identify this as the source we would be able to better treat it. Patient does not wish to be transferred. Discussed the above with patient's daughter, Stefano, and she stated that she would talk to her brother who would be better at convincing patient to have the SALAZAR. Will continue with the current course of antibiotics for now pending a decision on transfer for SALAZAR. Patient denies any fever, chills, cough, shortness of breath, chest pain, abdominal pain, nausea or dysuria. Per nursing, patient has had a large output of urine after a day or so of low output. This is more her normal. Objective Vitals and Measurements T: 36.6 C (Oral) TMIN: 36.5 C (Oral) TMAX: 36.9 C (Oral) HR: 66 (Monitored) RR: 18 BP: 118/81 SpO2:94% WT: 76.2 kg Intake and Output 7AM Yesterday to 7AM Today Intake and Output (Last 24 hours) Intake Oral Intake 360.00 Output Stool Count 1.00 Urine Count 2.00 Diaper Count 3.00 Emesis Count 0.00 Total Summary Total Intake 360.00 Total Output 0.00 Fluid Balance 360.00 Physical Exam General: No acute distress. Patient is alert, chronically ill-appearing. Skin: No rash. Skin is warm, dry and intact. HEENT: Head is normocephalic, atraumatic. Pupils are equal, round and reactive. Neck: Supple. No lymphadenopathy, thyromegaly. Lungs: Bilaterally clear but diminished without crepitation or wheeze. Unlabored. Heart: Heart is regular rhythm, S1, S2. No murmurs, gallops or rubs. Abdomen: Abdomen is soft, nontender. Bowels sounds present in all quadrants. Extremities: No clubbing, cyanosis, or edema. Peripheral pulses palpable. No calf tenderness. Neurological: Patient is awake and alert to person, place and time. Forgetful. Following simple commands, moving all extremities. Weight Current Weight Dosing Weight: 76.2 kg (02/01/24) Current Weight: 76.2 kg (02/03/24) Dosing Weight: 76.2 kg (02/01/24) Current Weight: 74.2 kg (02/02/24) Dosing Weight: 76.2 kg (02/01/24) Medications Medications (20) Active Scheduled: (10) acetaminophen 500 mg Tablet 1,000 mg 2 tab(s), Oral, TID ampicillin 2 gram(s), IV Piggyback, q4h aspirin 81 mg Chewable 81 mg 1 tab(s), Oral, BID atorvastatin 10 mg tablet 10 mg 1 tab(s), Oral, qDay carvedilol 3.125 mg tablet 3.125 mg 1 tab(s), Oral, BIDM enoxaparin 40 mg/ 0.4mL syringe 40 mg 0.4 mL, Subcutaneous, qDay levothyroxine 88 mcg tablet 88 mcg 1 tab(s), Oral, Wed//Wed//Wed/Sat lidocaine patch REMOVAL 1 EA, Miscellaneous, q24h lidocaine topical 4% patch 2 patch(es), Transdermal, qDay pantoprazole 20 mg EC tablet 20 mg 1 tab(s), Oral, qDayAC Continuous: (0) PRN: (10) acetaminophen 325 mg Tablet 650 mg 2 tab(s), Oral, q4h acetaminophen 325 mg Tablet 650 mg 2 tab(s), Oral, q4h benzonatate 100 mg Capsule 100 mg 1 cap(s), Oral, TID calcium carbonate 500 mg Chewable 500 mg 1 tab(s), Chewed, TID dextrose 50% Solution Disp syringe 50 mL 25 gram(s) 50 mL, IV Push, AsDirected furosemide 20 mg tablet 20 mg 1 tab(s), Oral, qDay guaifenesin 100 mg/5 mL 120 mL liquid 200 mg 10 mL, Oral, q4h melatonin 3 mg tablet 6 mg 2 tab(s), Oral, qHS ondansetron 2 mg/ 1 mL 2 mL INJ 4 mg 2 mL, IV Push, q4h tramadol 50 mg Tablet 50 mg 1 tab(s), Oral, BID Lab Results 02/02 06:06 WBC: 4.7 Hgb: 9.4 L Hct: 28.1 L Platelet: 187 Neutrophil %: 76.7 Glucose Level: 89 Sodium Level: 141 Potassium Level: 3.9 BUN: 11 Creatinine Lvl (s): 0.66 02/01 07:25 WBC: 8.4 Hgb: 10.3 L Hct: 31.1 L Platelet: 187 02/01 06:25 Glucose Level: 98 Sodium Level: 139 Potassium Level: 3.7 BUN: 15 Creatinine Lvl (s): 0.65 Imaging Results and Diagnostics CT Abdomen/Pelvis w/Contrast Result Date: February 02, 2024 Verified By: CARLOS MENDOZA MD CLINICAL STATEMENT: IMPRESSION: No acute abnormality. Very large hiatal hernia. EKG No qualifying data available. Assessment/Plan 1. Bacteremia Acute, new onset, unclear source of infection. Blood cultures grew Enterococcus faecalis. Continue ampicillin 2 g every 4 hours x 7 days - started 01/31 at 1400. Stop date 02/08/2024. Urinalysis that was collected was negative. Urine culture from [facility] grew actinomyces naeslundii.She was treated with cefdinir. Repeat blood cultures already collected and also positive for same. 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 Low suspicion for infective endocarditis.Patient considering SALAZAR. CT of a/p normal except for large hiatal hernia. Check CBC, BMP, magnesiumlevel. Patient is afebrile and hemodynamically stable. Repeat blood cultures in am. 2. Hypertension Chronic. Continue current antihypertensives. SBP goal of 140. 3. Weakness Chronic. Consult PT and OT. Patient was in TCU requiring transition to inpatient due to bacteremia.Patient accepted by [facility] and has precert good through 02/07. Continue PT and OT while here. 4. Takotsubo cardiomyopathy Found during recent heart cath at [facility]. DVT prophylaxiis with Lovenox. Code status: DNRCCA - do not intubate. Labs, diagnostic test and progress notes reviewed as noted in HPI. Plan of care discussed with patient. All questions answered. Patient verbalizes understanding and is agreeable with plan of care. This case was discussed with collaborating physician, Dr. Anneliese Chairez. Anticipated Date of Discharge next 24-48 hours Time Spent 35 minutes spent reviewing past diagnostic tests, reviewing lab results, vital sign trends, medicalhistory, reviewing medications and ordering home medications, examining patient, discussed plan of care with care team, collaborating with physician, and documenting in chart. Digitally Signed by KUMAR JAMES on 02/03/2024 04:05 PM [facility]06-27-2024 Note. MICRO - Microbiology PROCEDURE: Blood Culture (bacterial) [*1] SOURCE: Blood BODY SITE: Arm L COLLECTED DATE/TIME: 02/01/2024 05:34 EDT RECEIVED DATE/TIME: 02/01/2024 14:42 EDT START DATE/TIME: 02/01/2024 14:42 EDT FREE TEXT SOURCE: FINAL REPORTS Final Report [] Verified Date/Time/Personnel: 02/03/2024 11:26 EDT Enterococcus faecalis Isolated from aerobe and anaerobe bottles. Refer to previous culture for susceptibility. [id number] collected 01-31-24 PRELIMINARY REPORTS Preliminary Report [] Verified Date/Time/Personnel: 02/02/2024 09:02 EDT Enterococcus faecalis Isolated from aerobe and anaerobe bottles. Refer to previous culture for susceptibility. [id number] collected 01-31-24 Final report to follow. Preliminary Report [] Verified Date/Time/Personnel: 02/01/2024 15:59 EDT Culture has been received in lab and is no growth to date. Routine cultures are held for 5 days. STAINS GSANA [] Verified Date/Time/Personnel: 02/02/2024 00:12 EDT Gram Positive Cocci in pairs GSAER [] Verified Date/Time/Personnel: 02/01/2024 23:19 EDT Gram Positive Cocci in pairs Performing Locations *1: This test was performed at: [facility], [address] [place] [address], [facility]- , [facility] ([place]02-03-2024 Note. MICRO - Microbiology PROCEDURE: Blood Culture (bacterial) [*1] SOURCE: Blood BODY SITE: Arm R COLLECTED DATE/TIME: 02/01/2024 05:34 EDT RECEIVED DATE/TIME: 02/01/2024 14:42 EDT START DATE/TIME: 02/01/2024 14:42 EDT FREE TEXT SOURCE: FINAL REPORTS Final Report [] Verified Date/Time/Personnel: 02/03/2024 11:25 EDT Enterococcus faecalis Isolated from aerobe and anaerobe bottles. Refer to previous culture for susceptibility. [id number] Collected 01-31-24 PRELIMINARY REPORTS Preliminary Report [] Verified Date/Time/Personnel: 02/01/2024 15:59 EDT Culture has been received in lab and is no growth to date. Routine cultures are held for 5 days. STAINS GSANA [] Verified Date/Time/Personnel: 02/02/2024 00:55 EDT Gram Positive Cocci in pairs GSAER [] Verified Date/Time/Personnel: 02/02/2024 00:12 EDT Gram Positive Cocci in pairs SUSCEPTIBILITY RESULTS Enterococcus faecalis Antibiotic ASHLEIGH Dilut ASHLEIGH Inter ID Panel Not Not Applicable Applicable Performing Locations *1: This test was performed at: [address], [facility] , [facility] ([place])02-02-2024 Note ORIGINAL EXAMINATION: CT OF THE ABDOMEN AND PELVIS WITH CONTRAST02/02/2024 4:25 pm TECHNIQUE: CT of the abdomen and pelvis was performed with the administration of intravenous contrast. Multiplanar reformatted images are provided for review. Automated exposure control, iterative reconstruction, and/or weight based adjustment of the mA/kV was utilized to reduce the radiation dose to as low as reasonably achievable. COMPARISON: None HISTORY: ORDERING SYSTEM PROVIDED HISTORY: Reason for Exam: Bacteremia w/o clear source FINDINGS: The liver, adrenals, kidneys, spleen, and pancreas are unremarkable. The gallbladder is mostly contracted. There is atherosclerosis of the abdominal aorta without aneurysmal dilatation. There are no enlarged lymph nodes. The bowel is unremarkable. There is no free air or free fluid. There has been prior hysterectomy. The urinary bladder is unremarkable. 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 There is mild atelectasis at the lung bases. There is a very large hiatal hernia containing essentially the entire stomach. IMPRESSION: No acute abnormality. Very large hiatal hernia. Interpreted by: Carlos Mendoza Preliminary Report By: Carlos Mendoza Electronically signed By Carlos Mendoza Dictated Date: 02/02/2024 5:31:09 PM Prelim Date: 02/02/2024 5:34:24 PM Sign Date: 02/02/2024 5:34:24 PM Ordering Provider: [facility]06-26-2024 Note Date of Service 02/02/2024 Chief Complaint bacteremia Subjective Patient seen and evaluated this morning while resting in bed. She appears to be in no acute distress and denies any specific complaints. Patient aware that we are trying to find the source of her bacteremia. Daughter up to see patient this morning and updated that echo results look stable. We will send patient for CT of the abdomen/pelvis to try to find the source of patient's bacteremia. Patient denies any fever, chills, cough, shortness of breath, chest pain, abdominal pain, nausea, diarrhea or dysuria. All questions answered. Objective Vitals and Measurements T: 37.0 C (Oral) TMIN: 36.3 C (Oral) TMAX: 37.0 C (Oral) HR: 84 (Monitored) RR: 18 BP: 105/56 SpO2:95% WT: 74.2 kg Intake and Output 7AM Yesterday to 7AM Today Intake and Output (Last 24 hours) Intake Output Urinary Catheter Output: 400.00 Urine Count 2.00 Total Summary Total Intake 0.00 Total Output 400.00 Fluid Balance -400.00 Physical Exam General: No acute distress. Patient is alert, chronically ill-appearing. Skin: No rash. Skin is warm, dry and intact. HEENT: Head is normocephalic, atraumatic. Pupils are equal, round and reactive. Neck: Supple. No lymphadenopathy, thyromegaly. Lungs: Bilaterally clear but diminished without crepitation or wheeze. Unlabored. Heart: Heart is regular rhythm, S1, S2. No murmurs, gallops or rubs. Abdomen: Abdomen is soft, nontender. Bowels sounds present in all quadrants. Extremities: No clubbing, cyanosis, or edema. Peripheral pulses palpable. No calf tenderness. Neurological: Patient is awake and alert to person, place and time. Following simple commands, moving all extremities. Weight Current Weight Dosing Weight: 76.2 kg (02/01/24) Current Weight: 74.2 kg (02/02/24) Dosing Weight: 76.2 kg (02/01/24) Dosing Weight: 76.2 kg (02/01/24) Medications Medications (20) Active Scheduled: (10) acetaminophen 500 mg Tablet 1,000 mg 2 tab(s), Oral, TID ampicillin 2 gram(s), IV Piggyback, q4h aspirin 81 mg Chewable 81 mg 1 tab(s), Oral, BID atorvastatin 10 mg tablet 10 mg 1 tab(s), Oral, qDay carvedilol 3.125 mg tablet 3.125 mg 1 tab(s), Oral, BIDM enoxaparin 40 mg/ 0.4mL syringe 40 mg 0.4 mL, Subcutaneous, qDay levothyroxine 88 mcg tablet 88 mcg 1 tab(s), Oral, Wed//Wed//Wed/Sat lidocaine patch REMOVAL 1 EA, Miscellaneous, q24h lidocaine topical 4% patch 2 patch(es), Transdermal, qDay pantoprazole 20 mg EC tablet 20 mg 1 tab(s), Oral, qDayAC Continuous: (0) PRN: (10) acetaminophen 325 mg Tablet 650 mg 2 tab(s), Oral, q4h acetaminophen 325 mg Tablet 650 mg 2 tab(s), Oral, q4h benzonatate 100 mg Capsule 100 mg 1 cap(s), Oral, TID calcium carbonate 500 mg Chewable 500 mg 1 tab(s), Chewed, TID dextrose 50% Solution Disp syringe 50 mL 25 gram(s) 50 mL, IV Push, AsDirected furosemide 20 mg tablet 20 mg 1 tab(s), Oral, qDay guaifenesin 100 mg/5 mL 120 mL liquid 200 mg 10 mL, Oral, q4h melatonin 3 mg tablet 6 mg 2 tab(s), Oral, qHS ondansetron 2 mg/ 1 mL 2 mL INJ 4 mg 2 mL, IV Push, q4h tramadol 50 mg Tablet 50 mg 1 tab(s), Oral, BID Lab Results 02/01 07:25 WBC: 8.4 Hgb: 10.3 L Hct: 31.1 L Platelet: 187 02/01 06:25 Glucose Level: 98 Sodium Level: 139 Potassium Level: 3.7 BUN: 15 Creatinine Lvl (s): 0.65 01/31 14:45 WBC: 8.5 Hgb: 10.2 L Hct: 31.1 L Platelet: 177 Glucose Level: 121 H Sodium Level: 137 Potassium Level: 4.3 BUN: 17 Creatinine Lvl (s): 0.81 EKG No qualifying data available. Assessment/Plan 1. Bacteremia Acute, new onset, unclear source of infection. Blood cultures grew Enterococcus faecalis. Started ampicillin 2 g every 4 hours x 7 days - started 01/31 at 1400. Stop date 02/08/2024. Urinalysis that wascollected was negative. Urine culture from [facility] grew actinomyces naeslundii. She was treated with cefdinir. Repeat blood cultures already collected and also positive for same. 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 Low suspicion for infective endocarditis. Consider SALAZAR. Send patient for CT of a/p today. Check CBC, BMP, magnesium level. Patient is afebrileand hemodynamically stable. 2. Hypertension Chronic. Continue current antihypertensives. SBP goal of 140. 3. Weakness Chronic. Consult PT and OT. Patient was in TCU requiring transition to inpatient due to bacteremia.Patient accepted by [facility] and has precert good through 02/07. 4. Takotsubo cardiomyopathy Found during recent heart cath at [facility]. DVT prophylaxiis with Lovenox. Code status: DNRCCA - do not intubate. Labs, diagnostic test and progress notes reviewed as noted in HPI. Plan of care discussed with patient. All questions answered. Patient verbalizes understanding and is agreeable with plan of care. This case was discussed with collaborating physician, Dr. Anneliese Chairez. Anticipated Date of Discharge next 24-48 hours Time Spent 45 minutes spent reviewing past diagnostic tests, reviewing lab results, vital sign trends, medicalhistory, reviewing medications and ordering home medications, examining patient, discussed plan of care with care team, collaborating with physician, and documenting in chart. Digitally Signed by KUMAR JAMES on 02/02/2024 03:16 PM [facility]06-26-2024 Note. MICRO - Microbiology PROCEDURE: Blood Culture (bacterial) [*1] SOURCE: Blood BODY SITE: Arm R COLLECTED DATE/TIME: 01/31/2024 01:15 EDT RECEIVED DATE/TIME: 01/31/2024 15:05 EDT START DATE/TIME: 01/31/2024 15:05 EDT FREE TEXT SOURCE: FINAL REPORTS Final Report [] Verified Date/Time/Personnel: 02/02/2024 07:29 EDT Enterococcus faecalis Isolated from aerobe and anaerobe bottles. Refer to previous culture for susceptibility. [id number] PRELIMINARY REPORTS Preliminary Report [] Verified Date/Time/Personnel: 02/01/2024 09:12 EDT Enterococcus faecalis Isolated from aerobe and anaerobe bottles. Final report to follow. Preliminary Report [] Verified Date/Time/Personnel: 01/31/2024 16:00 EDT Culture has been received in lab and is no growth to date. Routine cultures are held for 5 days. STAINS GSANA [] Verified Date/Time/Personnel: 01/31/2024 22:32 EDT Gram Positive Cocci in pairs GSAER [] Verified Date/Time/Personnel: 01/31/2024 21:55 EDT Gram Positive Cocci in pairs SUSCEPTIBILITY RESULTS Enterococcus faecalis Antibiotic ASHLEIGH Dilut ASHLEIGH Inter ID Panel Not Not Applicable Applicable Performing Locations *1: This test was performed at: [address], [facility] , [facility] ([place])02-02-2024 Note. MICRO - Microbiology PROCEDURE: Blood Culture (bacterial) [*1] SOURCE: Blood BODY SITE: Arm L COLLECTED DATE/TIME: 01/31/2024 01:15 EDT RECEIVED DATE/TIME: 01/31/2024 15:05 EDT START DATE/TIME: 01/31/2024 15:05 EDT FREE TEXT SOURCE: FINAL REPORTS Final Report [] Verified Date/Time/Personnel: 02/02/2024 07:27 EDT Enterococcus faecalis Isolated from aerobe and anaerobe bottles. PRELIMINARY REPORTS Preliminary Report [] Verified Date/Time/Personnel: 02/01/2024 09:11 EDT Enterococcus faecalis Isolated from aerobe and anaerobe bottles. ASHLEIGH to follow Preliminary Report [] Verified Date/Time/Personnel: 01/31/2024 16:00 EDT Culture has been received in lab and is no growth to date. Routine cultures are held for 5 days. STAINS GSANA [] Verified Date/Time/Personnel: 01/31/2024 22:56 EDT Gram Positive Cocci in pairs GSAER [] Verified Date/Time/Personnel: 01/31/2024 22:29 EDT Gram Positive Cocci in pairs SUSCEPTIBILITY RESULTS Enterococcus faecalis Antibiotic ASHLEIGH Dilut ASHLEIGH Inter Ampicillin <=2 Susceptible Ciprofloxacin <=1 Susceptible Gentamicin <=500 Susceptible synergy ID Panel Not Not Applicable Applicable Levofloxacin <=1 Susceptible Penicillin 2 Susceptible Vancomycin 2 Susceptible Performing Locations *1: This test was performed at: [facility], [address] [place] [address], [id number] , [facility])02-01-2024 Hospital Discharge instructions Follow Up Care 02/01/2024 12:18:47 With:BROOKS OSUNA Address: [address] [address]- When:01/10/2024 09:30:00 Comments:This is your post-hospital cardiology appointment. [facility] 06-25-2024 Note Date of Service 02/01/2024 Chief Complaint Bacteremia History of Present Illness 83-year-old female with past medical history significant for HTN, HLD, hypothyroidism, GERD, PE, NSTEMI, Takotsubo cardiomyopathy (01/2024), aortic stenosis. Patient was originally seen at [facility] on 01/20/2024 where she was diagnosed withan NSTEMI. Patient had cardiac catheterization done with no blockages but was notable for Takotsubocardiomyopathy. Echo showed normal LVEF and moderate aortic stenosis. She was treated for a UTI with cefdinir. She was admitted to [facility] TCU. Her progress has been labile. She was telling multiple staff members that she was just done and she was ready to . Discussed hospice consultation. After consultation she decided that she wanted to pursue therapy services. During her stay she developed fevers. Infectious workup was done. No clear source of infection however blood cultures came back for Enterococcus faecalis. She was subsequently discharged from TCU and admitted to [facility] inpatient. On exam today, pt denies any fever or chills. No headache or dizziness. Denies chest pain, palpitations. No cough, dyspnea, sputum production. Denies N/V/D/C. No melena/hematochezia. No dysuria or hematuria. No new paresthesias. Review of Systems See HPI for specific ROS. All other systems reviewed and negative. Physical Exam Vitals and Measurements HT: 152.4 cm WT: 76.2 kg BMI: 32.81 Weight Dosing Weight: 76.2 kg (02/01/24) Dosing Weight: 76.2 kg (02/01/24) Dosing Weight: 76.2 kg (02/01/24) GEN: Appears chronically ill EYES: No conjunctival erythema, drainage. EOMI EARS: Hearing grossly intact. NOSE: No nasal discharge. THROAT: Oral cavity and pharynx pink and moist. CHEST: Normal S1 and S2. Rhythm is regular. Clear to auscultation, without rales, rhonchi, wheezing. ABD: Positive bowel sounds x 4 quads. Soft, nondistended, nontender. EXT: No significant deformity or joint abnormality. NEURO: Sensation grossly intact SKIN: Skin color normal PSYCH: The mental examination revealed the patient was alert and oriented to name and place. Assessment/Plan 1. Bacteremia 2. Hypertension 3. Weakness Bacteremia unclear source of infection. Blood cultures grew Enterococcus faecalis. Start ampicillin2 g every 4 hours x 7 days. Stop date 02/08/2024. Urinalysis that was collected was negative. Urine culture from [facility] grew actinomyces naeslundii. She was treated with cefdinir. Repeat blood cultures already collected. Obtain echocardiogram. Low suspicion for infective endocarditis. Check CBC, BMP, magnesium level. Patient is afebrile and hemodynamically stable. HTN- SBP goal 140 or less. Continue home antihypertensives. Weakness consult PT and OT. Patient was in TCU requiring transition to inpatient due to bacteremia.She has already provided first choice for SNF. Takotsubo cardiomyopathy noted during heart cath. DVT prophylaxis: Lovenox Code Status: DNR CCA/DNI Plan of care discussed with patient. All questions answered. Patient verbalizes understanding is agreeable to plan of care. Daughters updated at the bedside. This dictation was performed using voice recognition software and may include grammatical and/or spelling errors. Problem List/Past Medical History Ongoing Acquired hypothyroidism Dyslipidemia Gastro-esophageal reflux Hiatal hernia History of pulmonary embolus Pelvic mass Historical Benign hypertension Fever Rash Severe aortic valve stenosis UTI (urinary tract infection) Procedure/Surgical History Cardiac catheterization: 01/21/24 Echocardiogram: 09/09/23 Cataract extraction Medications Home Medications (8) Active aspirin 81 mg oral tablet, chewable 81 mg = 1 tab(s), Oral, BID calcium (as carbonate)-vitamin D 500 mg-200 intl units oral tablet 1 tab(s), Oral, Daily Coreg 3.125 mg oral tablet 3.125 mg = 1 tab(s), Oral, BIDM Lasix 20 mg oral tablet 20 mg = 1 tab(s), PRN, Oral, qDay levothyroxine 88 mcg (0.088 mg) oral tablet See Instructions lovastatin 40 mg oral tablet 40 mg = 1 tab(s), Oral, Daily omeprazole 20 mg oral delayed release capsule 20 mg = 1 cap(s), Oral, qDay traMADol 50 mg oral tablet 50 mg = 1 tab(s), PRN, Oral, BID Allergies Macrobid Upset stomach Social History Alcohol Use: Never., 03/26/2023 Nutrition/Health Caffeine intake amount: 1 cup decaf daily., 03/26/2023 Substance Abuse Use: Never., 03/26/2023 Tobacco Nicotine Use: Never (less than 100 in lifetime)., 09/16/2023 Family History Patient was adopted Immunizations pneumococcal 13-valent conjugate vaccine: 0 unknown unit (02/27/16) pneumococcal 23-valent vaccine(Pneumovax: 0.5 unknown unit (02/26/17) SARS-CoV-2 mRNA (tozinameran) vaccine: 0.3 unknown unit (08/12/21) SARS-CoV-2 mRNA (tozinameran) vaccine: 0.5 unknown unit (09/29/20) SARS-CoV-2 mRNA (tozinameran) vaccine: 0.5 unknown unit (09/05/20) Code Status Code Status - Ordered -- 02/01/24 12:22:00 EDT, DNRCC-Arrest Do Not Intubate, Constant Order Digitally Signed by STEFANO GRAHAM APRN-KACI on 02/01/2024 02:01 PM [address]25-2024 Note* Exam Date Time Procedure Performing Provider Status 02/01/24 2:01 PM Echocardiogram, Adult - CV Auth (Verified) [facility] 06-25-2024 Evaluation + Plan noteExtracted from: Title:History and Physical Author:STEFANO GRAHAM POWDER ROOM ATTENDANT-PARATRANSIT DRIVER Date:02/01/24 1. Bacteremia 2. Hypertension 3. Weakness Bacteremia unclear source of infection. Blood cultures grew Enterococcus faecalis. Start ampicillin 2 g every 4 hours x 7 days. Stop date 02/08/2024. Urinalysis that was collected was negative. Urine culture from [facility] grew actinomyces naeslundii. She was treated with cefdinir. Repeat blood cultures already collected. Obtain echocardiogram. Low suspicion for infective endocarditis. Check CBC, BMP, magnesium level. Patient is afebrile and hemodynamically stable. HTN- SBP goal 140 or less. Continue home antihypertensives. Weakness consult PT and OT. Patient was in TCU requiring transition to inpatient due to bacteremia. She has already provided first choice for SNF. Takotsubo cardiomyopathy noted during heart cath. DVT prophylaxis: Lovenox Code Status: DNR CCA/DNI Plan of care discussed with patient. All questions answered. Patient verbalizes understanding is agreeable to plan of care. Daughters updated at the bedside. This dictation was performed using voice recognition software and may include grammatical and/or spelling errors. Future Appointments Appointment Date:08/21/2024 11:00:00 AM Scheduled Provider: Location:[facility] Appointment Type:Echo - Echocardiogram Adult Appointment Date:09/21/2024 01:15:00 PM Scheduled Provider: Location:[facility] Appointment Type:CV OV [facility] 06-24-2024 Note Date of Service 01/31/2024 Chief Complaint Asthenia Subjective 83-year-old female with past medical history significant for HTN, HLD, hypothyroidism, GERD, PE, NSTEMI, Takotsubo cardiomyopathy (01/2024), aortic stenosis. Patient was originally seen at [facility] on 01/20/2024 for increasing weakness. Shewas having left shoulder pain that radiated down her arm. Initial troponin elevated at 3264 with noEKG changes. Patient had cardiac catheterization done with no blockages but was notable for Takotsubo cardiomyopathy. Echo was done which showed LVEF of 65% and moderate aortic stenosis. Nifedipine was discontinued and she was initiated on Coreg. Additionally she was treated for UTI. She was evaluated by therapy with recommendation for SNF. She was subsequently admitted to [facility] TCU. Initially patient was struggling with progressing with therapy. She briefly showed improvement withtherapy but then started struggling again. Her endurance is very poor. She tells me that she is just done. She has expressed the same to other staff members. I asked her if she would be interested [facility] hosp[facility] consultation and she said that she would like to get more information. Overnight patient developed a fever of 38.1. Infectious workup was completely negative. Patient had this same thing happen when she was here for therapy before. Her workup was negative at that point 2. Patient tends tobury herself in a lots of blankets. Objective Vitals and Measurements T: 37.0 C (Oral) TMIN: 36.9 C (Oral) TMAX: 38.1 C (Oral) HR: 85 (Monitored) RR: 20 BP: 111/51 SpO2:93% Intake and Output 7AM Yesterday to 7AM Today Intake and Output (Last 24 hours) Intake Oral Intake 520.00 Output Urinary Catheter Output: 300.00 Stool Count 1.00 Urine Count 5.00 Total Summary Total Intake 520.00 Total Output 300.00 Fluid Balance 220.00 Physical Exam GEN: Appears chronically ill CHEST: Normal S1 and S2. Rhythm is regular. Clear to auscultation, without rales, rhonchi, wheezing. ABD: Positive bowel sounds x 4 quads. Soft, nondistended, nontender. EXT: No significant deformity or joint abnormality. No edema. Peripheral pulses intact. NEURO: Sensation grossly intact SKIN: Skin color normal PSYCH: The mental examination revealed the patient was alert and oriented forgetful about time. Weight Current Weight Dosing Weight: 76.2 kg (01/22/24) Current Weight: 72.9 kg (01/30/24) Current Weight: 73.6 kg (01/28/24) Medications Medications (19) Active Scheduled: (8) aspirin 81 mg Chewable 81 mg 1 tab(s), Oral, BID atorvastatin 10 mg tablet 10 mg 1 tab(s), Oral, qDay calcium-vitamin D 500 mg-200 units tablet 1 tab(s), Oral, Daily carvedilol 3.125 mg tablet 3.125 mg 1 tab(s), Oral, BIDM levothyroxine 88 mcg tablet 88 mcg 1 tab(s), Oral, Mon//Wed//Fri/Sat lidocaine patch REMOVAL 1 EA, Miscellaneous, q24h lidocaine topical 4% patch 2 patch(es), Transdermal, q24h pantoprazole 20 mg EC tablet 20 mg 1 tab(s), Oral, qDayAC Continuous: (0) PRN: (11) acetaminophen 325 mg Tablet 650 mg 2 tab(s), Oral, q4h acetaminophen 325 mg Tablet 650 mg 2 tab(s), Oral, q4h Al hydrox/Mg hydrox/simethicone 200-200-20 mg/5 mL Susp UD 15 mL, Oral, q4h docusate sodium 100 mg Capsule 100 mg 1 cap(s), Oral, BID emollients (Desitin) 1 guille, Topical, AsDirected furosemide 20 mg tablet 20 mg 1 tab(s), Oral, qDay guaifenesin 100 mg/5 mL Liquid SUGAR-FREE 120 mL 200 mg 10 mL, Oral, q4h melatonin 3 mg tablet 6 mg 2 tab(s), Oral, qHS menthol (Biofreeze) gel packet 1 guille, Topical, TID polyethylene glycol 3350 - UD packet 17 gram(s) 15 mL, Oral, BID tramadol 50 mg Tablet 50 mg 1 tab(s), Oral, BID Lab Results 01/30 05:28 WBC: 7.6 Hgb: 9.9 L Hct: 30.6 L Platelet: 229 Neutrophil %: 76.7 Glucose Level: 112 H Sodium Level: 140 Potassium Level: 4.3 BUN: 12 Creatinine Lvl (s): 0.69 Assessment/Plan 1. Asthenia 2. UTI (urinary tract infection) 3. Takotsubo syndrome 4. Benign hypertension Asthenia continue PT and OT. Patient is having some endurance issues. She has expressed to multiplestaff members that she is done. Patient would like to have a consultation with hospice. Family isunable to care for patient at home. She will need to transition to long-term care. Social work is sending referrals to facilities of patient's choice. UTI resolved. Completed antibiotics. Takotsubo syndrome noted during heart cath. Echocardiogram demonstrated LVEF of 65% and aortic stenosis. Nifedipine discontinued and patient was initiated on Coreg. HTN- SBP goal 140 or less. Continue home antihypertensives. Code Status: DNR CCA/DNI Plan of care discussed with patient. All questions answered. Patient verbalizes understanding is agreeable to plan of care. This dictation was performed using voice recognition software and may include grammatical and/or spelling errors. CPT: 75451 Anticipated Date of Discharge Within 5 days Time Spent 20 minutes Digitally Signed by STEFANO GRAHAM on 01/31/2024 03:23 PM [facility]06-24-2024 Nurse Progress note pt refusing 2 am labs at this time. shop lead aware and will attempt to collect later in am. Digitally Signed by MICH Squires on 01/31/2024 03:19 AM [facility]06-24-2024 Note ORIGINAL EXAMINATION: TWO XRAY VIEWS OF THE CHEST 01/31/2024 12:14 am COMPARISON: None. HISTORY: ORDERING SYSTEM PROVIDED HISTORY: Reason for Exam: fever FINDINGS: Study is degraded due to patient's neck positioning, low lung volumes, and body habitus. Mildly enlarged cardiomediastinal silhouette. No large pleural effusion or pneumothorax. No focal consolidation. Probable large hiatal hernia. Mid/lower lung predominant bronchovascular markings may relate to atelectasis from low lung volumes or acute infectious/inflammatory process. No acute osseous findings. Bilateral humeral head appear superiorly subluxed within the glenoid, suggest chronic rotator cuff tear. IMPRESSION: Study is degraded due to above patient related factors. Mid/lower lung predominant bronchovascular markings may relate to atelectasis from low lung volumes or acute infectious/inflammatory process. Recommend follow-up to resolution. I have personally reviewed the images of this examination and agree with the resident's findings and interpretation. Interpreted by: Diogo Gibbons Preliminary Report By: Horace Khalil Electronically signed By Diogo Gibbons Dictated Date: 01/31/2024 12:40:51 AM Prelim Date: 01/31/2024 12:45:40 AM Sign Date: 01/31/2024 12:50:22 AM Ordering Provider: MALGORZATA [facility]06-22-2024 Nurse Progress note Pt has not voided since beginning of shift and has attempt to go on bedpan twice. Bladder scan doneshowing 593mL. Pt straight cathed per standing order and 400mL emptied from bladder. Urine clear and yellow. REBECCA Olivas notified. Pt denies discomfort other than usual arthritis. PRN tylenol administered. Digitally Signed by Allison Angela RN on 01/29/2024 02:54 PM [facility]06-22-2024 Nurse Progress note Therapy reported pt leaning to R side and back when attempting to sit on edge of bed. Assisted pt back to laying position. Pt reports feeling like I was drunk/lightheaded. Pt states she is not currently having this feeling. Facial expressions symmetrical. Hand grasps and extremity movement equal bilaterally. Orthostatic VS completed, see ICU flow. REBECCA Olivas made aware. Pt alert to self, place, situation, but confused to year (stated 2021). Orientation fluctuates at times at pt's baseline. Pt denies any other symptoms. Pt was previously up with 1 assist/gait belt/walker from WC to bed butat times does require 2 assist or breezy steady. Digitally Signed by Allison Angela RN on 01/29/2024 01:40 PM [facility]06-21-2024 Note Date of Service 01/28/2024 Chief Complaint Asthenia Subjective 83-year-old female with past medical history significant for HTN, HLD, hypothyroidism, GERD, PE, NSTEMI, Takotsubo cardiomyopathy (01/2024), aortic stenosis. Patient was originally seen at [facility] on 01/20/2024 for increasing weakness. Shewas having left shoulder pain that radiated down her arm. Initial troponin elevated at 3264 with noEKG changes. Patient had cardiac catheterization done with no blockages but was notable for Takotsubo cardiomyopathy. Echo was done which showed LVEF of 65% and moderate aortic stenosis. Nifedipine was discontinued and she was initiated on Coreg. Additionally she was treated for UTI. She was evaluated by therapy with recommendation for SNF. She was subsequently admitted to [facility] TCU. Initially patient was struggling with progressing with therapy. She did end up turning the corner and showing improvement. Patient is motivated to get back home. She has completed her course of cefdinir for UTI. On exam today, pt denies any fever or chills. No headache or dizziness. Denies chest pain, palpitations. No cough, dyspnea, sputum production. Denies N/V/D/C. No melena/hematochezia. No dysuria or hematuria. No new paresthesias. Objective Vitals and Measurements T: 36.9 C (Oral) TMIN: 36.6 C (Oral) TMAX: 36.9 C (Oral) HR: 77 (Monitored) RR: 24 BP: 105/77 SpO2:93% WT: 73.6 kg Intake and Output 7AM Yesterday to 7AM Today Intake and Output (Last 24 hours) Intake Oral Intake 460.00 Output Stool Count 1.00 Urine Count 4.00 Diaper Count 2.00 Total Summary Total Intake 460.00 Total Output 0.00 Fluid Balance 460.00 Physical Exam GEN: Appears chronically ill CHEST: Normal S1 and S2. Rhythm is regular. Clear to auscultation, without rales, rhonchi, wheezing. ABD: Positive bowel sounds x 4 quads. Soft, nondistended, nontender. EXT: No significant deformity or joint abnormality. No edema. Peripheral pulses intact. NEURO: Sensation grossly intact SKIN: Skin color normal PSYCH: The mental examination revealed the patient was alert and oriented x 4 Weight Current Weight Dosing Weight: 76.2 kg (01/22/24) Current Weight: 73.6 kg (01/28/24) Current Weight: 76.2 kg (01/23/24) Medications Medications (17) Active Scheduled: (6) aspirin 81 mg Chewable 81 mg 1 tab(s), Oral, BID atorvastatin 10 mg tablet 10 mg 1 tab(s), Oral, qDay calcium-vitamin D 500 mg-200 units tablet 1 tab(s), Oral, Daily carvedilol 3.125 mg tablet 3.125 mg 1 tab(s), Oral, BIDM levothyroxine 88 mcg tablet 88 mcg 1 tab(s), Oral, Wed//Wed//Wed/Sat pantoprazole 20 mg EC tablet 20 mg 1 tab(s), Oral, qDayAC Continuous: (0) PRN: (11) acetaminophen 325 mg Tablet 650 mg 2 tab(s), Oral, q4h acetaminophen 325 mg Tablet 650 mg 2 tab(s), Oral, q4h Al hydrox/Mg hydrox/simethicone 200-200-20 mg/5 mL Susp UD 15 mL, Oral, q4h docusate sodium 100 mg Capsule 100 mg 1 cap(s), Oral, BID emollients (Desitin) 1 guille, Topical, AsDirected furosemide 20 mg tablet 20 mg 1 tab(s), Oral, qDay guaifenesin 100 mg/5 mL Liquid SUGAR-FREE 120 mL 200 mg 10 mL, Oral, q4h melatonin 3 mg tablet 6 mg 2 tab(s), Oral, qHS menthol (Biofreeze) gel packet 1 guille, Topical, TID polyethylene glycol 3350 - UD packet 17 gram(s) 15 mL, Oral, BID tramadol 50 mg Tablet 50 mg 1 tab(s), Oral, BID Assessment/Plan 1. Asthenia 2. UTI (urinary tract infection) 3. Takotsubo syndrome 4. Benign hypertension Asthenia continue PT and OT. Patient is progressing well. Plan for possible discharge at the end ofnext week. UTI resolved. Completed antibiotics. Takotsubo syndrome noted during heart cath. Echocardiogram demonstrated LVEF of 65% and aortic stenosis. Nifedipine discontinued and patient was initiated on Coreg. HTN- SBP goal 140 or less. Continue home antihypertensives. Code Status: DNR CCA/DNI Plan of care discussed with patient. All questions answered. Patient verbalizes understanding is agreeable to plan of care. This dictation was performed using voice recognition software and may include grammatical and/or spelling errors. CPT: 41944 Anticipated Date of Discharge 02/03 Time Spent 20 minutes Digitally Signed by STEFANO GRAHAM on 01/28/2024 12:03 PM [facility]06-16-2024 Evaluation + Plan noteExtracted from: Title:History and Physical Author:KUMAR JAMES Date:01/23/24 1. Asthenia Consult placed to PT and OT to evaluate and treat - following. ground services instructor following for discharge planning needs. 2. Takotsubo syndrome New onset. Nifedipine discontinued and patient started on Carvedilol 3.125 mg PO BID. Started on aspirin 81 mg PO daily. 2D echo demonstrated EF 65% with normal systolic function, PA systolic pressure of 34 mmHg as well as moderate aortic stenosis. 3. Benign hypertension Chronic. Continue current antihypertensives. SBP goal of 140 or less. 4. Acquired hypothyroidism Chronic. Continue levothyroxine at current dose. 5. Gastro-esophageal reflux Chronic. Continue pantoprazole at current dose. UTI - urine culture was still pending yesterday but patient discharged to TCU on Cefdinir 300 mg PO BID for 5 days - continued. DVT prophylaxis with SCDs. Code status: DNRCCA - do not intubate. Labs, diagnostic test and progress notes reviewed as noted in HPI. Plan of care discussed with patient. All questions answered. Patient verbalizes understanding and is agreeable with plan of care. This case was discussed with collaborating physician, Dr. Morales Zelaya. 45 minutes spent reviewing past diagnostic tests, reviewing lab results, vital sign trends, medical history, reviewing medications and ordering home medications, examining patient, discussed plan of care with care team, collaborating with physician, and documenting in chart. CPT#52502 Future Appointments Appointment Date:08/21/2024 11:00:00 AM Scheduled Provider: Location:[facility] Appointment Type:Echo - Echocardiogram Adult Appointment Date:09/21/2024 01:15:00 PM Scheduled Provider: Location:[facility] Appointment Type:CV OV [facility] 06-16-2024 Note Date of Service 01/23/2024 Chief Complaint weakness History of Present Illness Patient is an 83-year-old female, who follows with Ester SÁNCHEZ with a past medical history significant for hypertension, hypothyroidism, hiatal hernia and GERD, presents to [facility] transitional care program for rehab before returning home. Patient was admitted to [facility] on 01/19 due to increased weakness at home. Patient was just in the TCU here at [facility] from 11/26-12/10 for rehab following a hospitalization at [facility]. She stated on admission that she had been getting around fine until 01/19 when she felt much weaker than usual. She also complained of some left shoulder pain that radiated down her left arm. She had recently been treated for a UTI by herP but felt that her urine was still dark and foul smelling. On evaluation in the ED, her initial troponin was noted to be 3264 while her EKG demonstrated no acute ST changes. Patient was taken to the construction or leak gang laborer from ED. The cardiac catheterization demonstrated no blockages but was notable for Takotsubo cardiomyopathy. Cardiology recommended that her nifedipine be discontinued and started her on ca rvedilol 3.125 mg PO BID. Echo was done which demonstrated EF 65% with normal systolic function, PAsystolic pressure of 34 mmHg as well as moderate aortic stenosis. Patient was also diagnosed with aUTI and started on ceftriaxone IV. Previous urine cultures grew E. coli. Urine culture was still pending at time of discharge but patient was discharged on Cefdinir 300 mg PO BID x 5 days. Patient seen and evaluated this morning while resting in bed. She denies any fever, chills, cough, shortness of breath, chest pain, abdominal pain, nausea or dysuria. Patient is aware that PT is hereand will see her this morning. We will have a care conference for her tomorrow at some time. Physical exam was largely unremarkable. Patient denies any needs at this time. All questions answered. Review of Systems Review of Systems: Reviewed in detail, including general health, HEENT, cardiovascular, respiratory, gastrointestinal, genitourinary, endocrine, musculoskeletal, neurologic, vascular, skin, and psychiatric. All are negative except for those listed in the History of Present Illness. Physical Exam Vitals and Measurements T: 37.5 C (Oral) TMIN: 36.8 C (Oral) TMAX: 37.5 C (Oral) HR: 73 (Monitored) RR: 16 BP: 116/59 SpO2:93% HT: 152.4 cm WT: 76.2 kg BMI: 32.81 Weight Current Weight Dosing Weight: 76.2 kg (01/22/24) Current Weight: 76.2 kg (01/23/24) General: No acute distress. Patient is alert, chronically ill-appearing. Skin: No rash. Skin is warm, dry and intact. HEENT: Head is normocephalic, atraumatic. Pupils are equal, round and reactive. Neck: Supple. No lymphadenopathy, thyromegaly. Head chronically bowed forward. Lungs: Bilaterally clear but diminished without crepitation or wheeze. Unlabored. Heart: Heart is regular rhythm, S1, S2. No murmurs, gallops or rubs. Abdomen: Abdomen is soft, nontender. Bowels sounds present in all quadrants. Extremities: No clubbing, cyanosis, or edema. Peripheral pulses palpable. No calf tenderness. Neurological: Patient is awake and alert to person, place and time. Following simple commands, moving all extremities. Lab Results No 36 Hour Lab Data Assessment/Plan 1. Asthenia Consult placed to PT and OT to evaluate and treat - following. ground services instructor following for discharge planning needs. 2. Takotsubo syndrome New onset. Nifedipine discontinued and patient started on Carvedilol 3.125 mg PO BID. Started on aspirin 81 mg PO daily. 2D echo demonstrated EF 65% with normal systolic function, PA systolic pressure of 34 mmHg as well as moderate aortic stenosis. 3. Benign hypertension Chronic. Continue current antihypertensives. SBP goal of 140 or less. 4. Acquired hypothyroidism Chronic. Continue levothyroxine at current dose. 5. Gastro-esophageal reflux Chronic. Continue pantoprazole at current dose. UTI - urine culture was still pending yesterday but patient discharged to TCU on Cefdinir 300 mg POBID for 5 days - continued. DVT prophylaxis with SCDs. Code status: DNRCCA - do not intubate. Labs, diagnostic test and progress notes reviewed as noted in HPI. Plan of care discussed with patient. All questions answered. Patient verbalizes understanding and is agreeable with plan of care. This case was discussed with collaborating physician, Dr. Morales Zelaya. 45 minutes spent reviewing past diagnostic tests, reviewing lab results, vital sign trends, medicalhistory, reviewing medications and ordering home medications, examining patient, discussed plan of care with care team, collaborating with physician, and documenting in chart. CPT#39616 Problem List/Past Medical History Ongoing Acquired hypothyroidism Benign hypertension Dyslipidemia Fever Gastro-esophageal reflux Hiatal hernia History of pulmonary embolus Pelvic mass Rash Severe aortic valve stenosis Procedure/Surgical History Cardiac catheterization: 01/21/24 Echocardiogram: 09/09/23 Cataract extraction Medications Home Medications (8) Active aspirin 81 mg oral tablet, chewable 81 mg = 1 tab(s), Oral, BID calcium (as carbonate)-vitamin D 500 mg-200 intl units oral tablet 1 tab(s), Oral, Daily Coreg 3.125 mg oral tablet 3.125 mg = 1 tab(s), Oral, BIDM Lasix 20 mg oral tablet 20 mg = 1 tab(s), PRN, Oral, qDay levothyroxine 88 mcg (0.088 mg) oral tablet See Instructions lovastatin 40 mg oral tablet 40 mg = 1 tab(s), Oral, Daily omeprazole 20 mg oral delayed release capsule 20 mg = 1 cap(s), Oral, qDay traMADol 50 mg oral tablet 50 mg = 1 tab(s), PRN, Oral, BID Allergies Macrobid Upset stomach Social History Alcohol Use: Never., 03/26/2023 Nutrition/Health Caffeine intake amount: 1 cup decaf daily., 03/26/2023 Substance Abuse Use: Never., 03/26/2023 Tobacco Nicotine Use: Never (less than 100 in lifetime)., 09/16/2023 Family History Patient was adopted Immunizations pneumococcal 13-valent conjugate vaccine: 0 unknown unit (02/27/16) pneumococcal 23-valent vaccine(Pneumovax: 0.5 unknown unit (02/26/17) SARS-CoV-2 mRNA (tozinameran) vaccine: 0.3 unknown unit (08/12/21) SARS-CoV-2 mRNA (tozinameran) vaccine: 0.5 unknown unit (09/29/20) SARS-CoV-2 mRNA (tozinameran) vaccine: 0.5 unknown unit (09/05/20) Code Status Code Status - Ordered -- 01/22/24 18:04:00 EDT, DNRCC-Arrest Do Not Intubate, Patient, Constant Order Digitally Signed by KUMAR JAMES APRN-PARATRANSIT DRIVER on 01/23/2024 02:32 PM Digitally Signed by KUMAR JAMES APRN-PARATRANSIT DRIVER on 01/23/2024 02:37 PM [facility]06-15-2024 Hospital Discharge instructions Follow Up Care 01/22/2024 13:08:57 With:BROOKS OSUNA Address: [address] [address]- When:02/09/2024 09:30:00 Comments:This is your cardiology post-hospital appointment. It is with Dr. Anderson's physician trust operations assistant. The office is inside [facility]. With:ESTER BEJARANO MSN, MONORAIL HELPER Address: [address] [address]- When: Unknown [facility] 06-15-2024 [facility] Medical Records Department [address] [place] [address] Discharge Summary 01/22/24 1353 MR#: [id number] Acct: [id number] Name: STEFANO WASHINGTON Rep #: [id number] : 1940 83 From: Marilee Avitia MD PCP: Dr. Carl Encarnacion MD Status:ADM IN Location: [place] [address] Providers Date of Admission: 01/20/24 Date of Discharge: 01/22/24 Primary Care Physician: Dr. Carl Encarnacion MD Consultations 01/20/24 14:39 Consult: Cardiology Routine Consulting Provider: Hector Anderson Reason for Consult: Chest Pain EMERGENT Consult: No MD Notified: Yes Date Notified: 01/20/24 Time Notified: 14:39 Method of Notification: ED Physician Initiated Reason For Visit: WEAKNESS Diagnosis Discharge Diagnosis (1) Non-ST elevation FL (NSTEMI): Status: Acute Code(s): I21.4 - Non-ST elevation (NSTEMI) myocardial infarction Plan #Nonstemi * admitted with a complaint of increased weakness and lethargy * on admission, initial troponin was 3264. Troponin trended down to 2756. * She was taken to the construction or leak gang laborer which showed nonobstructive coronary arteries and evidence of Takotsubo cardiomyopathy. * Per cardiology to DC her nifedipine. P.o. aspirin. * 2D echo showed EF of 65% with normal LV systolic function and PA systolic pressure of 34mmhg as well as moderate aortic stenosis * Cardiology on board. * #Hypertension: Per cardiology, nifedipine discontinued. Started on PO carvedilol 3.125mg bid. #GERD: on PPI #Abnormal urinalysis: * was recently treated for UTI and completed her antibiotic course (Keflex). * urine cultures pending * Previous urine cultures positive for E coli. * on IV ceftriaxone pending urine cultures * #Hypothyroidism:on synthroid. DVT prophylaxis: SCDs Code status: DNRCCA no intubation * * Disposition: Patient awaiting placement. Medications at Discharge Home Medications calcium carbonate 500 mg-vitamin D3 5 mcg (200 unit) tablet (Calcium 500 + D) 1 tab PO DAILY SUPPLEMENT 05/09/21 levothyroxine 88 mcg tablet 88 mcg PO MOTUWETHFRSA Thyroid 05/09/21 multivitamin 1 tab PO DAILY SUPPLEMENT 05/09/21 omeprazole 20 mg capsule,delayed release 20 mg PO DAILY GERD 05/09/21 furosemide 20 mg tablet 20 mg PO DAILY PRN swelling 01/20/24 lovastatin 40 mg tablet 40 mg PO QHS CHOLESTEROL 01/20/24 aspirin 81 mg tablet,delayed release 81 mg PO BREAKFAST #30 tabs 01/22/24 carvedilol 3.125 mg tablet 3.125 mg PO BID #60 tabs 01/22/24 cefdinir 300 mg capsule 300 mg PO BID #10 caps 01/22/24 tramadol 50 mg tablet 50 mg PO BID PRN Pain Score 1-10 #10 tabs 01/22/24 Hospital Course Operations None Procedures 2-D Echocardiogram and Cardiac catheterization Summary of Care Provided Minutes Spent on Discharge: 55 Hospital Course: STEFANO WASHINGTON, is a 83 F with a PMH as outlined who presents via the ED with a complaint of increased weakness,. She is normally able to ambulate with a walker and feed herself, but she felt much weaker than normal today. She denied any fever, chills, cough, palpitations, dizziness, nausea, vomiting or any other symptoms,. She also had left shoulder pain which went down her left arm. She was recently treated for UTI, but says her urine is still dark and smells offensive. Vitals in the ED were BP of 103/53, MD of 95, RR of 18 and oxygen sats of 94% on room air. CBC showed hemoglobin of 9.5 with WBC of 7.6 and platelets of 257. Chemistry showed sodium of 135, potassium of 3.8 and Cr of 0.66. Initial troponin was 3264. EKG showed no acute ST changes. She is being admitted to be managed for nonstemi. She was taken to the construction or leak gang laborer from the ED. Cardiac cath showed evidence of Takotsubo cardiomyopathy and showed nonobstructive coronaries. Nifedipine was discontinued and patient was placed on carvedilol. Her hospital course was uncomplicated. Patient was however too weak to go home and did not do very well with therapy. She was therefore amenable to placement. Pre-CERT was obtained and patient was discharged to long-term facility on 01/22/2024. She is follow-up with her primary care doctor and cardiology within 1 to 2 weeks. She was given a prescription for p.o. carvedilol 3.125 mg twice daily and was also given a prescription for p.o. tramadol 50 mg twice daily as needed for total of 10 tablets with 0 refills. Of note, urinalysis done showed evidence of UTI and urine cultures were growing alphahemolytic organisms at time of discharge. Based on previous cultures, she was discharged on p.o. cefdinir 300 mg twice daily for 5 days. Patient seen and examined prior to discharge. She felt well and had no active complaints. She had an uneventful night. Review of systems otherwise negative. Labs and vitals reviewed. Home medication reviewed and reconciled. Physical Exam Const alert, oriented x3 and no apparent distress General Appearance: c (more content not included)...[facility] History of Present illness Narrative* Nicky Paz LPN - 01/20/2024 6:31 PM EDT Scan on 01/20/2024 4:13 PM by Lizandro Robertson PA-C Scan on 01/20/2024 3:44 PM by Lizandro Robertson PA-C: Consultation - Emergency Medicine Scan on 01/20/2024 2:21 PM by Lizandro Robertson PA-C: Miscellaneous [facility] encounter Note * Telephone Encounter - Carl Encarnacion MD - 01/11/2024 4:46 PM EDT Noted. [facility]06-04-2024 Miscellaneous Notes* Telephone Encounter - Carl Encarnacion MD - 01/11/2024 4:46 PM EDT Noted. * Telephone Encounter - Ana Parish LPN - 01/11/2024 4:05 PM EDT Jonathan with [facility] calls to report pt was discharged from PT today. Jonathan reports pt has made good progress and pt said she is done with PT. Ana Parish LPN [facility]06-[facility] Telephone encounter Note * Telephone Encounter - Ana Parish LPN - 01/11/2024 4:05 PM EDT Jonathan with [facility] calls to report pt was discharged from PT today. Jonathan reports pt has made good progress and pt said she is done with PT. Ana Parish LPN [facility]05-31-2024 Telephone encounter Note* Telephone Encounter - Yancy Wetzel RN - 01/07/2024 4:38 PM EDT Call placed to daughter and notified of below message. Stefano verbalizes understanding. Yancy Wetzel RN [facility]05-31-2024 Miscellaneous Notes* Telephone Encounter - Yancy Wetzel RN - 01/07/2024 4:38 PM EDT Call placed to daughter and notified of below message. Stefano verbalizes understanding. Yancy Wetzel RN * Telephone Encounter - Ester Bejarano APRN.MONORAIL HELPER - 01/07/2024 4:28 PM EDT Very possible. There are only 3 oral antibiotics that this particular bacteria is susceptible to. Cipro, Macrobid which she has listed as an intolerance due to stomach irritation, and Bactrim. I will call in Bactrim DS 1 tablet twice daily for 3 days. Hopefully, that will be enough to eradicate E. coli. Remember to take Bactrim with a full glass of water. * Telephone Encounter - Yancy Wetzel RN - 01/07/2024 4:13 PM EDT Daughter calls to report that patient is feeling loopy from the antibiotic that she is currently on. Patient taking Cipro 500 mg twice daily and has taken a total of 2 doses. Call placed to patient and was not able to come to phone for triage but spoke to daughter that is in the home with patient who reports that patient is complaining of feeling light-headed when she is up ambulating and patient feels drowsy to the point it is taking her a long time to dress and do simple tasks. Daughter is asking if provider would send in antibiotic that patient was previously on for UTI as it seemed safer. Daughter not certain what previous ATB was. Requesting prescription go to [facility]. Please review and advise, Yancy Wetzel RN documented in this encounterGal[facility]05-31-[facility] Telephone encounter Note * Telephone Encounter - Ester Bejarano APRN.CNS - 01/07/2024 4:28 PM EDT Very possible. There are only 3 oral antibiotics that this particular bacteria is susceptible to. Cipro, Macrobid which she has listed as an intolerance due to stomach irritation, and Bactrim. I will call in Bactrim DS 1 tablet twice daily for 3 days. Hopefully, that will be enough to eradicate E. coli. Remember to take Bactrim with a full glass of water. [facility] Telephone encounter Note* Telephone Encounter - Yancy Wetzel RN - 01/07/2024 4:13 PM EDT Daughter calls to report that patient is feeling loopy from the antibiotic that she is currently on. Patient taking Cipro 500 mg twice daily and has taken a total of 2 doses. Call placed to patient and was not able to come to phone for triage but spoke to daughter that is in the home with patient who reports that patient is complaining of feeling light-headed when she is up ambulating and patient feels drowsy to the point it is taking her a long time to dress and do simple tasks. Daughter is asking if provider would send in antibiotic that patient was previously on for UTI as it seemed safer. Daughter not certain what previous ATB was. Requesting prescription go to [facility]. Please review and advise, Yancy Wetzel RN [facility]05-30-2024 Telephone encounter Note* Telephone Encounter - Carl Encarnacion MD - 01/06/2024 6:15 PM EDT Info noted. Patient has been on the tramadol for several years and the last script for compazine was back in 05/2023 per oncology. [facility]05-30-2024 Miscellaneous Notes* Telephone Encounter - Carl Encarnacion MD - 01/06/2024 6:15 PM EDT Info noted. Patient has been on the tramadol for several years and the last script for compazine was back in 05/2023 per oncology. * Telephone Encounter - Angeline Robbins RN - 01/06/2024 3:36 PM EDT Zabrina from [facility] calls and reports that patient is being discharged from OT services due to patient meeting goals. Zabrina also notes that patient's prn prochlorperazine does have an interaction with Tramadol. Patientreports that she does not take prochlorperazine often. Angeline Robbins RN documented in this encounterGal[facility]05-30-[facility]24 Telephone encounter Note * Telephone Encounter - Angeline Robbins RN - 01/06/2024 3:36 PM EDT Zabrina from [facility] calls and reports that patient is being discharged from OT services due to patient meeting goals. Zabrina also notes that patient's prn prochlorperazine does have an interaction with Tramadol. Patientreports that she does not take prochlorperazine often. Angeline Robbins RN [facility]05-30-2024 Telephone encounter Note* Telephone Encounter - Kumar Cooley MA - 01/06/2024 10:12 AM EDT Patient was made aware of the results. Patient verbalizes understanding. Kumar Cooley Ma [facility]05-30-2024 Miscellaneous Notes* Telephone Encounter - Kumar Cooley MA - 01/06/2024 10:12 AM EDT Patient was made aware of the results. Patient verbalizes understanding. Kumar Cooley Ma * Telephone Encounter - Ester Bejarano APRN.CNS - 01/06/2024 9:43 AM EDT Please let patient know that she does have a E. coli infection in her urine. I am calling in [facility] twice daily for 7 days. Repeat urinalysis once antibiotic is completed. * Telephone Encounter - Izzy Duarte LPN - 01/06/2024 9:19 AM EDT Daughter calling for results of pt's UA. Please advise, Pharmacy updated. Izzy Duarte LPN documented in [facility] encounter[facility] Telephone encounter Note * Telephone Encounter - Ester Bejarano APRN.CNS - 01/06/2024 9:43 AM EDT Please let patient know that she does have a E. coli infection in her urine. I am calling in [facility] twice daily for 7 days. Repeat urinalysis once antibiotic is completed. [facility]05-30-2024 Telephone encounter Note* Telephone Encounter - Izzy Duarte LPN - 01/06/2024 9:19 AM EDT Daughter calling for results of pt's UA. Please advise, Pharmacy updated. Izzy Duarte LPN [facility]05-28-2024 Telephone encounter Note* Telephone Encounter - Ana Parish LPN - 01/04/2024 8:30 AM EDT Patient has been identified by name and date of : Yes, Provider Alejandra Daughter phones for refill(s): Requested Prescriptions Pending Prescriptions Disp Refills traMADol (ULTRAM) 50 mg tablet 60 tablet 0 Sig: Take 1 tablet by mouth two times a day for 30 days. for arthritis pain. Date of last office visit in primary care: 12/13/2023 Date of next office visit in primary care: 02/17/2024 Please advise. Thank you. Ana Parish LPN. [facility]05-28-2024 Miscellaneous Notes* Telephone Encounter - Ana Parish LPN - 01/04/2024 8:30 AM EDT Patient has been identified by name and date of : Yes, Provider Alejandra Daughter phones for refill(s): Requested Prescriptions Pending Prescriptions Disp Refills traMADol (ULTRAM) 50 mg tablet 60 tablet 0 Sig: Take 1 tablet by mouth two times a day for 30 days. for arthritis pain. Date of last office visit in primary care: 12/13/2023 Date of next office visit in primary care: 02/17/2024 Please advise. Thank you. Ana Parish LPN. [facility] History of Present illness Narrative* Carl Encarnacion MD - 12/25/2023 11:20 AM EDT Patient's home health 485 form / care plan for certification period 12/14/2023 to 02/11/2024 reviewed and signed. Relevant medical records were reviewed. No changes were indicated documented in this encounterGalion [facility]24 NoteHNO ID: [id number] Author: ZABRINA CHAVEZ LPN Service: ? Author Type: LICENSED NURSE Type: Progress Notes Filed: 12/21/2023 14:07 Note Text: Scan on 12/21/2023 10:35 AM by Lizandro Robertson PA-C: Discharge [facility] History of Present illness Narrative* Zabrina Chavez LPN - 12/21/2023 2:07 PM EDT Scan on 12/21/2023 10:35 AM by Provider, External, SHANELLE: Discharge Summary Zabrina hCavez LPN documented in this encounterGal[facility]05-[facility] Telephone encounter Note * Telephone Encounter - Dannielle Tam MA - 12/16/2023 3:43 PM EDT Patient informed and verbalized understanding. Dannielle Tam MA [facility]05-09-2024 Miscellaneous Notes* Telephone Encounter - Dannielle Tam MA - 12/16/2023 3:43 PM EDT Patient informed and verbalized understanding. Dannielle Tam MA * Telephone Encounter - Ester Bejarano APRN.CNS - 12/16/2023 3:31 PM EDT Please let patient know that she does have a urinary tract infection with E. coli. I am sending a prescription for Bactrim to the pharmacy to take 1 tablet twice daily for 5 days. Please take each dose with a full glass of water. We should recheck urinalysis when she finishes her antibiotic. documented in this encounterGal[facility]05-[facility] Telephone encounter Note * Telephone Encounter - Ester Bejarano APRN.CNS - 12/16/2023 3:31 PM EDT Please let patient know that she does have a urinary tract infection with E. coli. I am sending a prescription for Bactrim to the pharmacy to take 1 tablet twice daily for 5 days. Please take each dose with a full glass of water. We should recheck urinalysis when she finishes her antibiotic. [facility]05-08-2024 Telephone encounter Note* Telephone Encounter - Keily Rico MA - 12/15/2023 4:27 PM EDT Left detailed message. Keily Rico MA [facility]05-08-2024 Miscellaneous Notes* Telephone Encounter - Keily Rico MA - 12/15/2023 4:27 PM EDT Left detailed message. Keily Rico MA * Telephone Encounter - Carl Encarnacion MD - 12/15/2023 4:24 PM EDT Yes I'm ok with the additional 3 visits. * Telephone Encounter - Gina Curiel LPN - 12/15/2023 12:27 PM EDT Kelsie from [facility] calling verbal ok for 3 additional visits for OT. They plan to see patient 1 time a week for 3 weeks. Please advise. documented in this encounterGal[facility]05-[facility] Telephone encounter Note * Telephone Encounter - Carl Encarnacion MD - 12/15/2023 4:24 PM EDT Yes I'm ok with the additional 3 visits. [facility]05-08-2024 Telephone encounter Note* Telephone Encounter - Gina Curiel LPN - 12/15/2023 12:27 PM EDT Kelsie from [facility] calling verbal ok for 3 additional visits for OT. They plan to see patient 1 time a week for 3 weeks. Please advise. [facility]05-07-2024 Telephone encounter Note* Telephone Encounter - Carl Encarnacion MD - 12/14/2023 3:30 PM EDT Noted. Med list updated. [facility]05-07-2024 Miscellaneous Notes* Telephone Encounter - Carl Encarnacion MD - 12/14/2023 3:30 PM EDT Noted. Med list updated. * Telephone Encounter - Mary Krueger RN - 12/14/2023 2:22 PM EDT Jonathan- PT- [place]- reports he saw patient today for start of care, and will continue to see patient for 7 more visits. Reports patient was in [facility], then transferred to [facility], then discharged to home on 12-11-23. Jonathan reviewed patient's home meds, and it looks like patient will continue pre- hospital medications. Noted some differences in what patient is taking at home, compared to hospital list: Patient just takes Vit D3 1000 international unit(s) ( 25 mcg ) daily. No calcium in this. Patient takes Vit B 12 - 500 mcg daily ( not 1000 mcg ) Patient takes a mucous relief (mucinex) medication prn. documented in this encounterGalion [facility]05-[facility] Telephone encounter Note * Telephone Encounter - Mary Krueger, RN - 12/14/2023 2:22 PM EDT Jonathan- PT- [place]- reports he saw patient today for start of care, and will continue to see patient for 7 more visits. Reports patient was in [facility], then transferred to [facility], then discharged to home on 12-11-23. Jonathan reviewed patient's home meds, and it looks like patient will continue pre- hospital medications. Noted some differences in what patient is taking at home, compared to hospital list: Patient just takes Vit D3 1000 international unit(s) ( 25 mcg ) daily. No calcium in this. Patient takes Vit B 12 - 500 mcg daily ( not 1000 mcg ) Patient takes a mucous relief (mucinex) medication prn. [facility]05-06-2024 Note* Addendum Note - Ester Bejarano APRN.CNS - 12/13/2023 1:45 PM EDTAddended by: ESTER BEJARANO on: 12/13/2023 01:45 PM Modules accepted: Orders [facility]05-06-2024 Miscellaneous Notes* Addendum Note - Ester Bejarano APRN.CNS - 12/13/2023 1:45 PM EDTAddended by: ESTER BEJARANO on: 12/13/2023 01:45 PM Modules accepted: Orders documented in this encounterGalion [facility] Hospital05-06-2024 Instructions* Patient Instructions* Ester Bejarano APRN.CNS - 12/13/2023 1:15 PM EDT 1) Get urine culture 2) Handicapped placard for 5 years 3) Keep appointment February 16 as scheduled documented in this encounterGalion [facility]05-[facility] History of Present illness Narrative* Ester Bejarano APRN.CNS - 12/13/2023 12:40 PM EDT This is a 83 year old female who presents today with: No chief complaint on file. HISTORY OF PRESENT ILLNESS: Stefano Washington is a 83 year old female. No chief complaint on file. Fell, struck the left side of her face. That bruised. Feeling better. Has a guardian alert. PAST MEDICAL HISTORY: PAST MEDICAL HISTORY Diagnosis Date Acquired hypothyroidism 07/12/2015 Acute right-sided low back pain with right-sided sciatica 05/13/2016 Advance directive discussed with patient 06/26/2022 Discussed 06/2022, packets provided. Age-related physical debility 06/18/2021 Aortic stenosis, moderate 12/19/2021 12/19/2021 echo: small LV, EF 65%, moderate aortic stenosis with peak/mean gradient 20mmHg/12mmHg, DVI 0.40, grade 1 diastolic dysfunction. F/u annually or if symptomatic Chronic pain of right knee 10/29/2017 COVID-19 virus infection 05/07/2021 04/27/2021 Essential hypertension 10/20/2005 Gastroesophageal reflux disease without esophagitis 07/12/2015 hiatal hernia Hiatal hernia 06/18/2021 05/09/2021 CTA chest: Very large hiatal hernia containing entire stomach and other loops of bowel. History of pulmonary embolism 06/06/202105/2021 (post COVID) is to be on Eliquis till 11/07/21, stopped 12/12/2021 Iron deficiency anemia, unspecified Mixed hyperlipidemia 04/15/2011 Obesity, Class I, BMI 30-34.9 04/10/2023 Osteoarthritis of multiple joints 07/12/2015 Substance agreement signed 08/28/2016. On chronic Tramadol for control. 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 PAST SURGICAL HISTORY Procedure Laterality Date AMP F/TH 08/10 JT/PHALANX W/NEURECT W/DIR CLSR right 3rd finger at PIP joint COLONOSCOPY FLX DX W/COLLJ SPEC WHEN PFRMD 02/14/2009 repeat 10 yrs, sigmoid diverticulosis, internal hemorrhoids EGD TRANSORAL BIOPSY SINGLE/MULTIPLE 02/14/2009 hiatal hernia, esophagitis, gastritis FECAL OCCULT BLOOD TEST 03/01/2017 negative PAST SURGICAL HISTORY OF uterine polyp REMV CATARACT EXTRACAP,INSERT LENS Bilateral 07/2022 TOTAL ABDOM HYSTERECTOMY 04/2023 ALLERGIES Macrobid [Nitrofurantoin Monohyd/M-Cryst] MEDICATIONS Current Outpatient Medications Medication Sig traMADol (ULTRAM) 50 mg tablet Take 1 tablet by mouth two times a day for 30 days. for arthritis pain. levothyroxine (SYNTHROID) 88 mcg tablet take one tablet by mouth wednesday through wednesday and none on wednesday. lovastatin 40 mg tablet Take 1 tablet by mouth daily at bedtime. For cholesterol. omeprazole (PRILOSEC) 20 mg capsule Take 1 capsule by mouth once daily. NIFEdipine ER (PROCARDIA XL) 30 mg 24 hr tablet Take 1 tablet by mouth once daily. cyanocobalamin (VITAMIN B-12) 1,000 mcg tab Take 1,000 mcg by mouth once daily. prochlorperazine (COMPAZINE) 10 mg tablet Take 1 tablet by mouth every 6 hours as needed (For chemotherapy induced nausea and vomiting). aspirin, enteric coated (ASPIRIN, ENTERIC COATED) 81 mg EC tablet Take 1 tablet by mouth once daily. acetaminophen (TYLENOL) 500 mg tablet Take 1-2 tablets by mouth every 6 hours. docusate sodium (COLACE) 100 mg capsule Take 1 capsule by mouth twice daily as needed. phosphorus (K PHOS NEUTRAL) 250 mg tablet Take 1 tablet by mouth twice daily. THERAPEUTIC MULTIVITAMIN TAB Take 1 tablet by mouth once daily. Calcium-Cholecalciferol (D3) 500-200 mg-unit ORAL Tab Take one(1) tablet two(2) times daily. Current Facility-Administered Medications Medication Dose Route Frequency perflutren lipid microspheres 1.3 mL in NaCl (PF) 0.9% 10 mL injection (DEFINITY) INTRAVENOUS DIRECTED PRN sodium chloride 0.9 % (flush) 10 mL (BD POSIFLUSH) 10 mL INTRAVENOUS DIRECTED PRN FAMILY HISTORY Adopted: Yes Problem Relation Age of Onset other (unknown) Other adopted Social History Tobacco Use Smoking status: Former Types: Cigarettes Smokeless tobacco: Never Vaping Use Vaping Use: Never used Substance Use Topics Alcohol use: No Drug use: No REVIEW OF SYSTEMS Review of Systems Constitutional: Positive for fatigue. Negative for chills and fever. HENT: Negative for postnasal drip, rhinorrhea, sinus pressure and sore throat. Respiratory: Negative for cough, chest tightness and wheezing. Always a little NOVOA. Cardiovascular: Positive for leg swelling. Negative for chest pain and palpitations. Gastrointestinal: Negative for abdominal pain, constipation, diarrhea and nausea. Endocrine: Negative for polydipsia and polyphagia. Genitourinary: Negative for dysuria and hematuria. Musculoskeletal: Positive for arthralgias and gait problem. Knees always ache Poor posture. Walks w/ rollator. Neurological: Negative for dizziness, syncope, weakness and numbness. Psychiatric/Behavioral: Negative for agitation and self-injury. EXAM: There were no vitals taken for this visit. PHYSICAL EXAM: Physical Exam Constitutional: Appearance: She is obese. HENT: Head: Normocephalic. Neck: Comments: Severe kyphosis Cardiovascular: Rate and Rhythm: Regular rhythm. Heart sounds: Murmur heard. No friction rub. No gallop. Comments: AMAN @ sternal border Pulmonary: Breath sounds: No wheezing or rales. Abdominal: Tenderness: There is no abdominal tenderness. There is no guarding. Musculoskeletal: General: Swelling and signs of injury present. Comments: 1 inch laceration left lower leg- scabbed over Skin: General: Skin is warm and dry. Neurological: Mental Status: She is alert. Sensory: No sensory deficit. Motor: Weakness present. Comments: Uses rollator Psychiatric: Mood and Affect: Mood normal. Behavior: Behavior normal. LABS: needs urine culture ASSESSMENT/PLAN: 1. Recurrent UTI (urinary tract infection) - ICD9: 599.0, ICD10: N39.0 (primary diagnosis) Seen in ER for this, falls. - Send urine for culture, unable to void today so we will bring urine sample back for culture 2. Essential hypertension - ICD9: 401.9, ICD10: I10 - Controlled - Recommend home blood pressure monitoring, to bring results to next visit - Encouraged sodium restriction, DASH or Mediterranean diet - Recommend regular aerobic exercise 3. Malignant neoplasm of ovary, unspecified laterality (HCC) - ICD9: 183.0, ICD10: C56.9 - ERIKA with BSO 4. Aortic stenosis, moderate - ICD9: 424.1, ICD10: I35.0 Stable Discussed treatment plan and patient voices understanding. Patient's questions answered appropriately. Medications and potential side effects were discussed and patient voices understanding. Return to the office as scheduled or as needed for worsening/no improvement. Ester Bejarano APRN.MONORAIL HELPER documented in this encounterGal[facility]Reg[facility] Telephone encounter Note* Telephone Encounter - Surthi Pisano MA - 12/13/2023 11:49 AM EDT Yuri was notified Sruthi Pisano MA [facility]05-06-2024 Miscellaneous Notes* Telephone Encounter - Sruthi Pisano MA - 12/13/2023 11:49 AM EDT Yuri was notified Surthi Pisano MA * Telephone Encounter - Carl Encarnacion MD - 12/13/2023 10:53 AM EDT I will follow for [facility] orders. The F2f report needs signed by the provider who placed the order to consult [facility] for PHYSICAL THERAPY and OT at [facility]. * Telephone Encounter - Izzy Duarte LPN - 12/13/2023 9:10 AM EDT Yuri with [facility] calling to let you know pt is went home from [facility] over the weekend and pt has been referred to [facility] for PT and OT. DX: had a fall and was admitted for rhabdomyolysis. Please call with verbal orders that you will follow and sign for Home Care. Izzy Duarte LPN documented in this encounterGalion [facility] Hospital05-[facility]-2024 Telephone encounter Note * Telephone Encounter - Carl Encarnacion MD - 12/13/2023 10:53 AM EDT I will follow for [facility] orders. The F2f report needs signed by the provider who placed the order to consult [facility] for PHYSICAL THERAPY and OT at [facility]. [facility]05-06-2024 Telephone encounter Note* Telephone Encounter - Izzy Duarte LPN - 12/13/2023 9:10 AM EDT Yuri with [facility] calling to let you know pt is went home from [facility] over the weekend and pt has been referred to [facility] for PT and OT. DX: had a fall and was admitted for rhabdomyolysis. Please call with verbal orders that you will follow and sign for Home Care. Izzy Duarte LPN [facility]05-04-2024 Nurse Discharge summary discharge instructions reviewed with daughter and pt, verbalized understanding, no questions at this time pt escorted out to private vehicle via [facility]05-04-2024 Note Discharge Instructions Thank you for allowing [facility] to assist you with your healthcare needs. The following is importantdischarge information regarding your hospital visit. Your Care Team ESTER BEJARANO, MONORAIL HELPER Your Diagnosis Acquired hypothyroidism Asthenia Benign hypertension Fever Gastro-esophageal reflux Rash What to do next Instructions From Your Doctor You were admitted to [facility] transitional care program for rehab after a hospital stay at [facility]. You have progressed well with therapy and they feel that you are ready to transition back home. Our psychotherapist social worker has arranged for home health PT and OT to take over and see you in your home. We made no changes to your medications and you stated that you did not need any refills. Our psychotherapist social worker set-up an appointment with your PCP for next week. The date and time are on your discharge instructions. If you have any new or worsening problems, please contact your PCP or return to the ED. We wish you the best as you discharge home today. Thank you for using [facility] transitional care program for your rehab needs! Scheduled Follow-Up Appointments Appointment Type When Where Contact InformationEcho - Echocardiogram Adult 08/21/2024 11:00 AM [facility] Radiology [phone] CV OV 09/21/2024 01:15 PM [facility] Heart & Vascular [facility] [place] Follow Up Appointments Follow Up with [facility] When 12/13/2023 11:00 AM EDT Why: This is your PCP appointment. It will be with the nurse practitioner, Ester Bejarano. Follow-up as scheduled. Where: [address] [place] [address]- [phone] The Following Activity and Diet Have Been Ordered for You Discharge Activity - Ordered -- Resume your pre-hospitalization activity, 12/11/23 8:07:00 EDT Discharge Diet - Ordered -- No changes were made to your diet during your hospital stay. Please resume your pre hospitalization diet on discharge., 12/11/23 8:07:00 EDT The Following Equipment Has Been Ordered for You No qualifying data available. The Following Treatments Have Been Ordered for You Discharge Labs No qualifying data available. Discharge Radiology No qualifying data available. Other Therapies No qualifying data available. Post Acute Orders No qualifying data available. Someone Will Contact You Regarding These Home Health Referrals No home referrals have been ordered for you. No one will call you. Allergies Macrobid (Upset stomach) Medications Please ask your primary doctor or pharmacist before taking any other medication not listed, including over the counter drugs, herbal medications, vitamins and or supplements as they may interact withyour home medications. What How Much When Instructions Last Dose Unchanged calcium-vitamin D (calcium (as carbonate)-vitamin D 500 mg-200 intl units oral tablet) 1 tab(s) by mouth Every day Unchanged furosemide (Lasix 20 mg oral tablet) 1 tab(s) by mouth Once a day as needed for Swelling Unchanged levothyroxine (levothyroxine 88 mcg (0.088 mg) oral tablet) See instructions 1 tab(s) Oral Mon-Sat Hold Sun 6a Unchanged lovastatin (lovastatin 40 mg oral tablet) 1 tab(s) by mouth Every day Unchanged multivitamin (Multivitamin) 1 tab(s) by mouth Every day Unchanged NIFEdipine (NIFEdipine (Eqv-Procardia XL) 30 mg oral tablet, extended release) 1 tab(s) by mouth Once a day 9a Unchanged omeprazole (omeprazole 20 mg oral delayed release capsule) 1 cap by mouth Once a day Unchanged traMADol (traMADol 50 mg oral tablet) 1 tab(s) by mouth Every 12 hours as needed for for pain Please take this list to your next doctor s visit. Bring all medications you take, including over the counter medications, herbals and other supplements with you to your doctor s visit. Patients and families are reminded to discard old lists and to update any records with all medication providers or retail pharmacies. Education Materials Weakness Weakness is a lack of strength. You may feel weak all over your body (generalized), or you may feelweak in one specific part of your body (focal). Common causes of weakness include: Infection and immune system disorders. Physical exhaustion. Internal bleeding or other blood loss that results in a lack of red blood cells (anemia). Dehydration. An imbalance in mineral (electrolyte) levels, such as potassium. Heart disease, circulation problems, or stroke. Other causes include: Some medicines or cancer treatment. Stress, anxiety, or depression. Nervous system disorders. Thyroid disorders. Loss of muscle strength because of age or inactivity. Poor sleep quality or sleep disorders. The cause of your weakness may not be known. Some causes of weakness can be serious, so it is important to see your health care provider. Follow these instructions at home: Activity Rest as needed. Try to get enough sleep. Most adults need 7 8 hours of quality sleep each night. Talk to your health care provider about how much sleep you need each night. Do exercises, such as arm curls and leg raises, for 30 minutes at least 2 days a week or as told byyour health care provider. This helps build muscle strength. Consider working with a physical therapist or link trainer teacher who can develop an exercise plan to help you gain muscle strength. General instructions Take [id number] and prescription medicines only as told by your health care provider. Eat a healthy, well-balanced diet. This includes: ? Proteins to build muscles, such as lean meats and fish. ? Fresh fruits and vegetables. ? Carbohydrates to boost energy, such as whole grains. Drink enough fluid to keep your urine pale yellow. Keep all follow-up visits as told by your health care provider. This is important. Contact a health care provider if your weakness: Does not improve or gets worse. Affects your ability to think clearly. Affects your ability to do your normal daily activities. Get help right away if you: Develop sudden weakness, especially on one side of your face or body. Have chest pain. Have trouble breathing or shortness of breath. Have problems with your vision. Have trouble talking or swallowing. Have trouble standing or walking. Are light-headed or lose consciousness. Summary Weakness is a lack of strength. You may feel weak all over your body or just in one specific part of your body. Weakness can be caused by a variety of things. In some cases, the cause may be unknown. Rest as needed, and try to get enough sleep. Most adults need 7 8 hours of quality sleep each night. Eat a healthy, well-balanced diet. This information is not intended to replace advice given to you by your health care provider. Make sure you discuss any questions you have with your health care provider. Document Released: 07/26/2006 Document Revised: 03/01/2019 Document Reviewed: 03/01/2019 [employer]Fetch Patient Education 2020 [employer]. Additional Information VACCINATE! IT SAVES LIVES! Members of the community who have not yet received the COVID-19 vaccine and would like to receive it can visit one of [facility] vaccine clinics. There are many vaccine clinic locations within the [facility]. For locations and available times, please visit [email or web address].gov/. It is important to note that some COVID mobile vaccine clinics are held outdoors and may be canceled in rainy or stormy conditions. To learn more about pediatric vaccinations (ages 5-11), we invite you to visit the [facility] webpage. [email or web address] learn more about the COVID-19 vaccine, we invite you to visit the CDC website for a list of frequently asked questions.https://www.cdc.gov/coronavirus/2019-ncov/vaccines/faq.html [employer] Patient Portal Access Instructions: Stay connected with your healthcare team and access your personal medical information anytime with the [facility] [employer] Patient Portal. Please follow the directions below to create your [facility] [employer] account: 1.Access the email account you provided upon registration to the hospital/physician office.2.Look for an invitation email from [facility].3.Open the email and access the invitation link: AcceptInvitation to [employer].4.Fill in the required martinez to create your account. To access your account, visit [email or web address]. Click the blue button labeled Access Patient Portal and then log in with the username and password that you created in the steps above. You will be able to view your test results, lab results, a summary of your visits, upcoming appointments and more. There is also a convenient messaging option where you can send secure messages to your p [employer]. In addition, you will have the ability to download any documents or summaries to your computer and/or send the information securely to a physician. Remember that your healthcare information is confidential, so carefully consider who you will allowto register on the [employer] Patient Portal for access to your information. You can also access the [facility] [facility] Patient Portal on the [place] [facility] guille. Simply click on Patient Portal and then log into your account. If you would like to receive a full copy of your medical records, please contact the [facility] Medical Records Department by calling [phone], Wednesday through Wednesday between 8 a.m. and 4:30 p.m. HOW TO SAFELY DISPOSE OF PRESCRIPTION MEDICATIONS Please use one of the following methods to safely dispose of your unused medications. 1.Use a drug disposal kit: the drug disposal pouch allows you to safely discard your old and unuseddrugs. Ask your nurse to give you one when you are discharged.2.Visit a local take-back location: Many local pharmacies and police departments have programs that collect old and unwanted prescriptiondrugs. Call your local pharmacy or go to http://Snugg Home.ReelBig/3V2Qe7r to find one close to you.3.Make use of household items: Use cat litter or old coffee grounds to dispose medications if other options arenot available. Mix your drugs with these household products, seal them in an airtight container andthrow it into the garbage. Call [place]: [phone] to be sure your drugs can be disposed of in this way. Some medicines may require a different approach.4.Never flush your medications down the toilet. IF YOU HAVE BEEN PRESCRIBED AN OPIOID FOR PAIN If you have been prescribed an opioid (such as hydrocodone, oxycodone or morphine), it is critical to understand the possible side effects and risks of opioid pain medications. Even when taken as directed, opioids can have several side effects including: Tolerance, meaning you might need to take more of a medication for the same pain relief. Nausea, vomiting and/or constipation. Sleepiness, dizziness, dry mouth, confusion, depression or itching. Physical dependence, meaning you have withdrawal symptoms when a medication is stopped, can develop within a few days. KNOW YOUR RESPONSIBILITIES It is important to know exactly how much and how often to take the opioid pain medications you are prescribed. Never take opioids in higher amounts or more often than prescribed. Do not combine opioids with alcohol or other drugs that cause drowsiness, such as benzodiazepines, also known as benzos, including diazepam and alprazolam, muscle relaxants or sleep aids. Never sell or share prescription opioids. This is illegal. Store opioids in a secure place and out of reach of others (including children, family, friends and visitors). The last page of this document has been signed and retained as a CHART COPY. Signatures Patient Education Materials Weakness Medication Leaflets My discharge plan and instructions have been reviewed and explained to me and IFELIX RACHEL Sunderstand my current condition and have read and understand these discharge instructions. I have received a written copy of the plan/instructions. If I have questions, I am aware that I should contact my doctor. Patient/Supervisor Research Kennel Signature: Date/Time: Relationship to Patient: Witness Name/Signature: Date/Time: [facility] Rosa Mariajesus [id number] Hospital Discharge instructions Patient Education 12/11/2023 08:02:58 Weakness Weakness Weakness is a lack of strength. You may feel weak all over your body (generalized), or you may feelweak in one specific part of your body (focal). Common causes of weakness include: Infection and immune system disorders. Physical exhaustion. Internal bleeding or other blood loss that results in a lack of red blood cells (anemia). Dehydration. An imbalance in mineral (electrolyte) levels, such as potassium. Heart disease, circulation problems, or stroke. Other causes include: Some medicines or cancer treatment. Stress, anxiety, or depression. Nervous system disorders. Thyroid disorders. Loss of muscle strength because of age or inactivity. Poor sleep quality or sleep disorders. The cause of your weakness may not be known. Some causes of weakness can be serious, so it is important to see your health care provider. Follow these instructions at home: Activity Rest as needed. Try to get enough sleep. Most adults need 7 8 hours of quality sleep each night. Talk to your health care provider about how much sleep you need each night. Do exercises, such as arm curls and leg raises, for 30 minutes at least 2 days a week or as told byyour health care provider. This helps build muscle strength. Consider working with a physical therapist or link trainer teacher who can develop an exercise plan to help you gain muscle strength. General instructions Take [id number] and prescription medicines only as told by your health care provider. Eat a healthy, well-balanced diet. This includes: ?Proteins to build muscles, such as lean meats and fish. ?Fresh fruits and vegetables. ?Carbohydrates to boost energy, such as whole grains. Drink enough fluid to keep your urine pale yellow. Keep all follow-up visits as told by your health care provider. This is important. Contact a health care provider if your weakness: Does not improve or gets worse. Affects your ability to think clearly. Affects your ability to do your normal daily activities. Get help right away if you: Develop sudden weakness, especially on one side of your face or body. Have chest pain. Have trouble breathing or shortness of breath. Have problems with your vision. Have trouble talking or swallowing. Have trouble standing or walking. Are light-headed or lose consciousness. Summary Weakness is a lack of strength. You may feel weak all over your body or just in one specific part of your body. Weakness can be caused by a variety of things. In some cases, the cause may be unknown. Rest as needed, and try to get enough sleep. Most adults need 7 8 hours of quality sleep each night. Eat a healthy, well-balanced diet. This information is not intended to replace advice given to you by your health care provider. Make sure you discuss any questions you have with your health care provider. Document Released: 07/26/2006 Document Revised: 03/01/2019 Document Reviewed: 03/01/2019 YouFetch Patient Education 2020 [employer]. Follow Up Care 11/26/2023 15:27:14 With:[facility] Address: [address] [place] [phone] When:12/13/2023 11:00:00 Comments:This is your PCP appointment. It will be with the nurse practitioner, Ester Bejarano. Follow-up as scheduled. [facility] 04-29-2024 Note Date of Service 12/06/2023 Chief Complaint Asthenia Subjective 83-year-old female with past medical history significant for HTN, HLD, hypothyroidism, GERD, PE. Patient presented to [facility] on 11/23/2023 after sustaining a fall at home. She was treated for rhabdomyolysis and UTI. She was initially treated with ceftriaxone and then transition to Keflex. She was evaluated by therapy services with recommendation for SNF. She was subsequently admitted to [facility] TCU. 12/01 therapy reported that patient has had increased weakness and needed to use the Breezy steady fortransfers. She had a low white blood cell count at 4.5. Low- grade temperature. Patient was swabbed for COVID/flu/RSV and this was found to be negative. Respiratory panel was also negative. It was determined that patient was only developing fevers overnight due to the room being very warm and patient using many warm blankets. She did develop a heat rash. This was not responsive to topical cream. She was given a 3-day course of prednisone with resolution of diffuse rash. Today therapy staff reports that patient has shown much improvement in mobility. Patient has no complaints otherwise. Dietitian voiced concerns that patient has had a substantial weight gain. She does have as needed Lasix andhas been given a couple of doses for lower extremity edema. She does not have any respiratory symptoms. Objective Vitals and Measurements T: 36.5 C (Oral) HR: 83(Apical) RR: 20 BP: 138/64 SpO2: 97% Intake and Output 7AM Yesterday to 7AM Today Intake and Output (Last 24 hours) Intake Oral Intake 200.00 Output Stool Count 1.00 Urine Count 3.00 Emesis Count 0.00 Total Summary Total Intake 200.00 Total Output 0.00 Fluid Balance 200.00 Physical Exam GEN: Appears chronically ill. CHEST: Normal S1 and S2. Rhythm is regular. Clear to auscultation, without rales, rhonchi, wheezing. ABD: Positive bowel sounds x 4 quads. Soft, nondistended, nontender. EXT: No significant deformity or joint abnormality. 2+ edema BLE. Peripheral pulses intact. NEURO: Sensation grossly intact SKIN: Rash has resolved PSYCH: The mental examination revealed the patient was alert and oriented x 4 Weight Current Weight Dosing Weight: 80.6 kg (11/30/23) Current Weight: 87.4 kg (12/04/23) Dosing Weight: 80.6 kg (11/26/23) Dosing Weight: 80.6 kg (11/26/23) Medications Medications (20) Active Scheduled: (8) atorvastatin 10 mg tablet 10 mg 1 tab(s), Oral, qDay calcium-vitamin D 500 mg-200 units tablet 1 tab(s), Oral, Daily levothyroxine 88 mcg tablet 88 mcg 1 tab(s), Oral, Mon//Wed//Wed/Sat multivitamin (Myadec) with minerals Therapeutic Multiple Vitamins with Minerals Tablet 1 tab(s), Oral, qDayM nifedipine 30 mg ER tablet (Procardia) 30 mg 1 tab(s), Oral, qDay pantoprazole 20 mg EC tablet 20 mg 1 tab(s), Oral, qDayAC predniSONE 20 mg tablet 40 mg 2 tab(s), Oral, qDayM triamcinolone topical 0.5% Cream 15 Gram(s) tube 1 guille, Topical, BID Continuous: (0) PRN: (12) acetaminophen 325 mg Tablet 650 mg 2 tab(s), Oral, q4h acetaminophen 325 mg Tablet 650 mg 2 tab(s), Oral, q4h Al hydrox/Mg hydrox/simethicone 200-200-20 mg/5 mL Susp UD 15 mL, Oral, q4h bisacodyl 5 mg EC tablet 10 mg 2 tab(s), Oral, qDay docusate sodium 100 mg Capsule 100 mg 1 cap(s), Oral, BID emollients (Desitin) 1 guille, Topical, BID furosemide 20 mg tablet 20 mg 1 tab(s), Oral, qDay guaifenesin 100 mg/5 mL Liquid SUGAR-FREE 120 mL 200 mg 10 mL, Oral, q4h melatonin 3 mg tablet 6 mg 2 tab(s), Oral, qHS menthol (Biofreeze) gel packet 1 guille, Topical, TID polyethylene glycol 3350 - UD packet 17 gram(s) 15 mL, Oral, BID tramadol 50 mg Tablet 50 mg 1 tab(s), Oral, q12h Assessment/Plan 1. Asthenia 2. Fever 3. Benign hypertension 4. Rash Asthenia- Continue PT and OT. Pt did better today than yesterday. She is very slow to progress. Fever-likely related to very warm room and use of excessive blankets at night. She has no fevers during the day. Urinalysis was negative. Respiratory panel was negative. HTN- SBP goal 140 or less. Continue home antihypertensives. Rash-resolved Weight gain monitor weights daily using a standing scale only for accuracy. Patient appears to havegained around 10 pounds since admission. Nursing to continue to use as needed Lasix. Code Status: DNRCCA/DNI Plan of care discussed with patient. All questions answered. Patient verbalizes understanding is agreeable to plan of care. This dictation was performed using voice recognition software and may include grammatical and/or spelling errors. CPT: 37897 Anticipated Date of Discharge 12/09 Time Spent 22 minutes Digitally Signed by STEFANO GRAHAM on 12/06/2023 11:26 AM [facility]04-29-2024 Telephone encounter Note* Telephone Encounter - Kristen Eugene PA-C - 12/06/2023 10:21 AM EDT The following approved medication requests have been transmitted electronically. Requested Prescriptions Signed Prescriptions Disp Refills traMADol (ULTRAM) 50 mg tablet 60 tablet 0 Sig: Take 1 tablet by mouth two times a day for 30 days. for arthritis pain. Authorizing Provider: KRISTEN EUGENE PA-C [facility]04-29-2024 Miscellaneous Notes* Telephone Encounter - Kristen Eugene PA-C - 12/06/2023 10:21 AM EDT The following approved medication requests have been transmitted electronically. Requested Prescriptions Signed Prescriptions Disp Refills traMADol (ULTRAM) 50 mg tablet 60 tablet 0 Sig: Take 1 tablet by mouth two times a day for 30 days. for arthritis pain. Authorizing Provider: KRISTEN EUGENE PA-C * Telephone Encounter - [place] Trina Estrada - 12/06/2023 8:03 AM EDT Patient has been identified by name and date of : Yes Stefano, daughter phones for refill(s): Requested Prescriptions Pending Prescriptions Disp Refills traMADol (ULTRAM) 50 mg tablet 60 tablet 0 Sig: Take 1 tablet by mouth two times a day for 30 days. for arthritis pain. Date of last office visit in primary care: 08/18/2023 Date of next office visit in primary care: 02/17/2024 Please advise. Thank you. Trina Estrada. [facility] Tele[facility] encounter Note * Telephone Encounter - [place] Trina Estrada - 12/06/2023 8:03 AM EDT Patient has been identified by name and date of : Yes Stefano, daughter phones for refill(s): Requested Prescriptions Pending Prescriptions Disp Refills traMADol (ULTRAM) 50 mg tablet 60 tablet 0 Sig: Take 1 tablet by mouth two times a day for 30 days. for arthritis pain. Date of last office visit in primary care: 08/18/2023 Date of next office visit in primary care: 02/17/2024 Please advise. Thank you. Trina Estrada. [facility]04-26-2024 Note Date of Service 12/03/23 Chief Complaint Asthenia Subjective 83-year-old female with past medical history significant for HTN, HLD, hypothyroidism, GERD, PE. Patient presented to [facility] on 11/23/2023 after sustaining a fall at home. She was treated for rhabdomyolysis and UTI. She was initially treated with ceftriaxone and then transition to Keflex. She was evaluated by therapy services with recommendation for SNF. She was subsequently admitted to [facility]CU. 12/01 therapy reported that patient has had increased weakness and needed to use the Breezy steady fortransfers. She had a low white blood cell count at 4.5. Low- grade temperature. Patient was swabbed for COVID/flu/RSV and this was found to be negative. Overnight patient spiked a fever as high as 38.8 C. She denies any respiratory symptoms. She is frequently incontinent of urine. She was recently treated for a UTI. She denies any dysuria. She does report developing a rash over her whole body. It was pruritic but this improved after she got a shower. Objective Vitals and Measurements T: 36.8 C (Oral) TMIN: 36.8 C (Oral) TMAX: 38.8 C (Oral) HR: 87(Monitored) RR: 16 BP: 117/57 SpO2: 94% Intake and Output 7AM Yesterday to 7AM Today Intake and Output (Last 24 hours) Intake Output Urinary Catheter Output: 420.00 Stool Count 1.00 Urine Count 2.00 Diaper Count 1.00 Total Summary Total Intake 0.00 Total Output 420.00 Fluid Balance -420.00 Physical Exam GEN: Appears chronically ill. CHEST: Normal S1 and S2. Rhythm is regular. Clear to auscultation, without rales, rhonchi, wheezing. ABD: Positive bowel sounds x 4 quads. Soft, nondistended, nontender. EXT: No significant deformity or joint abnormality. 2+ edema BLE. Peripheral pulses intact. NEURO: Sensation grossly intact SKIN: Diffuse blanchable rash PSYCH: The mental examination revealed the patient was alert and oriented x 4 Weight Dosing Weight: 80.6 kg (11/30/23) Dosing Weight: 80.6 kg (11/26/23) Dosing Weight: 80.6 kg (11/26/23) Medications Medications (19) Active Scheduled: (7) atorvastatin 10 mg tablet 10 mg 1 tab(s), Oral, qDay calcium-vitamin D 500 mg-200 units tablet 1 tab(s), Oral, Daily levothyroxine 88 mcg tablet 88 mcg 1 tab(s), Oral, Wed//Wed//Wed/Wed multivitamin (Myadec) with minerals Therapeutic Multiple Vitamins with Minerals Tablet 1 tab(s), Oral, qDayM nifedipine 30 mg ER tablet (Procardia) 30 mg 1 tab(s), Oral, qDay pantoprazole 20 mg EC tablet 20 mg 1 tab(s), Oral, qDayAC triamcinolone topical 0.5% Cream 15 Gram(s) tube 1 guille, Topical, BID Continuous: (0) PRN: (12) acetaminophen 325 mg Tablet 650 mg 2 tab(s), Oral, q4h acetaminophen 325 mg Tablet 650 mg 2 tab(s), Oral, q4h Al hydrox/Mg hydrox/simethicone 200-200-20 mg/5 mL Susp UD 15 mL, Oral, q4h bisacodyl 5 mg EC tablet 10 mg 2 tab(s), Oral, qDay docusate sodium 100 mg Capsule 100 mg 1 cap(s), Oral, BID emollients (Desitin) 1 guille, Topical, BID furosemide 20 mg tablet 20 mg 1 tab(s), Oral, qDay guaifenesin 100 mg/5 mL Liquid SUGAR-FREE 120 mL 200 mg 10 mL, Oral, q4h melatonin 3 mg tablet 6 mg 2 tab(s), Oral, qHS menthol (Biofreeze) gel packet 1 guille, Topical, TID polyethylene glycol 3350 - UD packet 17 gram(s) 15 mL, Oral, BID tramadol 50 mg Tablet 50 mg 1 tab(s), Oral, q12h Lab Results 12/02 08:21 WBC: 4.8 Hgb: 10.7 L Hct: 31.1 L Platelet: 283 Neutrophil %: 72.9 Glucose Level: 113 H Sodium Level: 141 Potassium Level: 3.8 BUN: 12 Creatinine Lvl (s): 0.85 12/01 05:15 WBC: 4.5 L Hgb: 11.0 L Hct: 33.2 L Platelet: 319 Neutrophil %: 70.1 Glucose Level: 103 Sodium Level: 141 Potassium Level: 4.4 BUN: 12 Creatinine Lvl (s): 0.72 Assessment/Plan 1. Asthenia 2. Fever 3. Benign hypertension 4. Rash Asthenia- Continue PT and OT. Pt did better today than yesterday. She is very slow to progress. Fever- Unclear cause. UA obtained and negative. Covid/flu/rsv negative. T high 38.8. WIll check full respiratory ID panel. HTN- SBP goal 140 or less. Continue home antihypertensives. Rash- Diffuse, blanchable rash all over, more noticeable on back and legs. May be heat rash following fever. Improved after shower. Code Status: DNRCCA/DNI Plan of care discussed with patient. All questions answered. Patient verbalizes understanding is agreeable to plan of care. This dictation was performed using voice recognition software and may include grammatical and/or spelling errors. 95586 Anticipated Date of Discharge 12/16 Time Spent 30 minutes Digitally Signed by STEFANO GRAHAM on 12/03/2023 11:27 AM [facility]04-26-2024 HCoV 229E RNA FASUTO+non-probe Ql (Nph) Not Detected *NA* (12/03/23 8:03 AM) Auto [employer]iro/Sero [id number] Note Date of Service 12/01/2023 Chief Complaint weakness Subjective Patient seen and evaluated this morning while resting in her chair. She states that she is doing well and feels that she is getting stronger. She denies any new problems or concerns today. Patient denies any urinary symptoms including frequency or burning. Nursing is concerned that patient is incontinent of large amounts of urine and does not seem to be bothered by or aware of it. Will check labstomorrow to make sure renal function is stable. Patient denies any fever, chills, cough, shortness of breath, chest pain, abdominal pain, nausea or dysuria. All questions answered. Objective Vitals and Measurements T: 37.1 C (Oral) TMIN: 37.1 C (Oral) TMAX: 37.7 C (Oral) HR: 88(Monitored) RR: 18 BP: 121/74 SpO2: 92% Intake and Output 7AM Yesterday to 7AM Today Intake and Output (Last 24 hours) Intake Oral Intake 800.00 Output Stool Count 0.00 Urine Count 4.00 Diaper Count 3.00 Total Summary Total Intake 800.00 Total Output 0.00 Fluid Balance 800.00 Physical Exam General: No acute distress. Patient is alert, chronically ill-appearing. Skin: No rash. Skin is warm, dry and intact. HEENT: Head is normocephalic, atraumatic. Pupils are equal, round and reactive. Neck: Supple. No lymphadenopathy, thyromegaly. Head bowed forward chronically. Lungs: Bilaterally clear but diminished without crepitation or wheeze. Unlabored. Heart: Heart is regular rhythm, S1, S2. No murmurs, gallops or rubs. Abdomen: Abdomen is soft, nontender. Bowels sounds present in all quadrants. Extremities: No clubbing, cyanosis; generalized edema in BLE. Peripheral pulses palpable. No calf tenderness. Neurological: Patient is awake and alert to person, place and time. Following simple commands, moving all extremities. Weight Dosing Weight: 80.6 kg (11/30/23) Dosing Weight: 80.6 kg (11/26/23) Dosing Weight: 80.6 kg (11/26/23) Medications Medications (17) Active Scheduled: (6) atorvastatin 10 mg tablet 10 mg 1 tab(s), Oral, qDay calcium-vitamin D 500 mg-200 units tablet 1 tab(s), Oral, Daily levothyroxine 88 mcg tablet 88 mcg 1 tab(s), Oral, Wed//Wed//Wed/Sat multivitamin (Myadec) with minerals Therapeutic Multiple Vitamins with Minerals Tablet 1 tab(s), Oral, qDayM nifedipine 30 mg ER tablet (Procardia) 30 mg 1 tab(s), Oral, qDay pantoprazole 20 mg EC tablet 20 mg 1 tab(s), Oral, qDayAC Continuous: (0) PRN: (11) acetaminophen 325 mg Tablet 650 mg 2 tab(s), Oral, q4h acetaminophen 325 mg Tablet 650 mg 2 tab(s), Oral, q4h Al hydrox/Mg hydrox/simethicone 200-200-20 mg/5 mL Susp UD 15 mL, Oral, q4h docusate sodium 100 mg Capsule 100 mg 1 cap(s), Oral, BID emollients (Desitin) 1 guille, Topical, BID furosemide 20 mg tablet 20 mg 1 tab(s), Oral, qDay guaifenesin 100 mg/5 mL Liquid SUGAR-FREE 120 mL 200 mg 10 mL, Oral, q4h melatonin 3 mg tablet 6 mg 2 tab(s), Oral, qHS menthol (Biofreeze) gel packet 1 guille, Topical, TID polyethylene glycol 3350 - UD packet 17 gram(s) 15 mL, Oral, BID tramadol 50 mg Tablet 50 mg 1 tab(s), Oral, q12h Lab Results No 36 Hour Lab Data Assessment/Plan 1. Asthenia Acute, secondary to UTI and hospitalization. Consult placed to PT and OT to evaluate and treat - following. ground services instructor following for discharge planning. 2. Benign hypertension Chronic. Continue current antihypertensives. SBP goal of 140 or less. 3. Acquired hypothyroidism Chronic. Continue levothyroxine at current dose. 4. Gastro-esophageal reflux Chronic. Continue PPI. Patient incontinent of large amounts of urine. Will check labs in the am to rule out medical problem. DVT prophylaxis with SCDs. Code status: DNRCCA - do not intubate. Labs, diagnostic test and progress notes reviewed as noted in HPI. Plan of care discussed with patient. All questions answered. Patient verbalizes understanding and is agreeable with plan of care. This case was discussed with collaborating physician, Dr. Usman Childs. Anticipated Date of Discharge ?? Time Spent 35 minutes spent reviewing past diagnostic tests, reviewing lab results, vital sign trends, medicalhistory, reviewing medications and ordering home medications, examining patient, discussed plan of care with nursing, social work supervisor and therapy, collaborating with physician, and documenting in chart. CPT#48262 Digitally Signed by KUMAR JAMES on 12/01/2023 07:37 PM [facility]04-20-2024 Note Date of Service 11/27/2023 Chief Complaint weakness History of Present Illness Patient is an 83-year-old female, who follows with Dr. Ministerio Crabtree with a past medical history significant for hypertension, hyperlipidemia, hypothyroidism, GERD and PE, presented to [facility] on 11/23/2023 after sustaining a fall at home. Patient states that she had gotten up about 1am the day of presentation to use the bathroom and fell. She was down for unknown amount of time but possibly a few hours. She states she had been feeling weaker than usual for about 24 hours prior to the fall. She did not hit her head or lose consciousness but did sustain an injury to her left lower leg in the fall. She was diagnosed with rhabdomyolysis and urinary tract infection in the ED and was admitted to the hospital for treatment. Creatine kinase was 2446 on admission. BMP otherwise waswithin normal limits. Urinalysis was significant for 500 leukocyte esterace, positive nitrites and 4+ bacteria. Patient was treated with Ceftriaxone IV. Urine culture ultimately grew roman-sensitive E.Coli and patient was transitioned to Keflex for 7 days. Patient was seen by PT and OT during her stay and they recommended a skilled stay. Patient was approved by insurance and arrived last evening for [facility] transitional care program. Patient was seen this morning while resting in her chair. She states that she is doing well and denies any new complaints. She continues to have pain in her left lower extremity when she bears weight. She states that her leg was imaged at [facility] and was negative for an acute fracture. Introduced self and role of hospitalist FOOD INSPECTOR in her care while in the TCU. Patient verbalizes understanding. Physical exam was unremarkable today. All questions answered. Review of Systems Review of Systems: Reviewed in detail, including general health, HEENT, cardiovascular, respiratory, gastrointestinal, genitourinary, endocrine, musculoskeletal, neurologic, vascular, skin, and psychiatric. All are negative except for those listed in the History of Present Illness. Physical Exam Vitals and Measurements T: 37.6 C (Oral) TMIN: 36.8 C (Oral) TMAX: 37.6 C (Oral) HR: 99(Monitored) RR: 18 BP: 131/57 SpO2: 92% HT: 152.4 cm WT: 80.6 kg WT: 80.6 kg BMI: 34.7 Weight Dosing Weight: 80.6 kg (11/26/23) Dosing Weight: 80.6 kg (11/26/23) General: No acute distress. Patient is alert, chronically ill-appearing. Skin: No rash. Skin is warm, dry and intact. HEENT: Head is normocephalic, atraumatic. Pupils are equal, round and reactive. Neck: Supple. No lymphadenopathy, thyromegaly. Head bowed forward. Lungs: Bilaterally clear but diminished without crepitation or wheeze. Unlabored. Heart: Heart is regular rhythm, S1, S2. No murmurs, gallops or rubs. Abdomen: Abdomen is soft, nontender, obese. Bowels sounds present in all quadrants. Extremities: No clubbing, cyanosis, or edema. Peripheral pulses palpable. No calf tenderness. Neurological: Patient is awake and alert to person, place and time. Following simple commands, moving all extremities. Lab Results No 36 Hour Lab Data Assessment/Plan 1. Asthenia Acute, secondary to UTI and hospitalization. Consult placed to PT and OT to evaluate and treat. ground services instructor following for discharge planning. 2. Benign hypertension Chronic. Continue current antihypertensives. SBP goal of 140 or less. 3. Acquired hypothyroidism Chronic. Continue levothyroxine at current dose. 4. Gastro-esophageal reflux Chronic. Continue PPI. DVT prophylaxis with SCDs. Code status: DNRCCA - do not intubate. Labs, diagnostic test and progress notes reviewed as noted in HPI. Plan of care discussed with patient. All questions answered. Patient verbalizes understanding and is agreeable with plan of care. This case was discussed with collaborating physician, Dr. Morales Zelaya. 45 minutes spent reviewing past diagnostic tests, reviewing lab results, vital sign trends, medicalhistory, reviewing medications and ordering home medications, examining patient, discussed plan of care with nursing, social work supervisor and therapy, collaborating with physician, and documenting in chart. CPT#87481 Problem List/Past Medical History Ongoing Acquired hypothyroidism Benign hypertension Dyslipidemia Gastro-esophageal reflux Hiatal hernia History of pulmonary embolus Pelvic mass Severe aortic valve stenosis Historical No qualifying data Procedure/Surgical History Echocardiogram: 09/09/23 Cataract extraction Medications Home Medications (8) Active calcium (as carbonate)-vitamin D 500 mg-200 intl units oral tablet 1 tab(s), Oral, Daily Lasix 20 mg oral tablet 20 mg = 1 tab(s), PRN, Oral, qDay levothyroxine 88 mcg (0.088 mg) oral tablet See Instructions lovastatin 40 mg oral tablet 40 mg = 1 tab(s), Oral, Daily Multivitamin 1 tab(s), Oral, Daily NIFEdipine (Eqv-Procardia XL) 30 mg oral tablet, extended release 30 mg = 1 tab(s), Oral, qDay omeprazole 20 mg oral delayed release capsule 20 mg = 1 cap(s), Oral, qDay traMADol 50 mg oral tablet 50 mg = 1 tab(s), PRN, Oral, q12h Allergies Macrobid (Upset stomach) Social History Alcohol Use: Never., 03/26/2023 Nutrition/Health Caffeine intake amount: 1 cup decaf daily., 03/26/2023 Substance Abuse Use: Never., 03/26/2023 Tobacco Nicotine Use: Never (less than 100 in lifetime)., 09/16/2023 Family History Patient was adopted Immunizations No qualifying data available. Code Status Code Status - Ordered -- 11/27/23 8:10:00 EDT, DNRCC-Arrest Do Not Intubate, Constant Order Digitally Signed by KUMAR JAMES on 11/27/2023 02:00 PM [facility]04-20-2024 Evaluation + Plan noteExtracted from: Title:History and Physical Author:KUMAR JAMES APRN-PARATRANSIT DRIVER Date:11/27/23 1. Asthenia Acute, secondary to UTI and hospitalization. Consult placed to PT and OT to evaluate and treat. ground services instructor following for discharge planning. 2. Benign hypertension Chronic. Continue current antihypertensives. SBP goal of 140 or less. 3. Acquired hypothyroidism Chronic. Continue levothyroxine at current dose. 4. Gastro-esophageal reflux Chronic. Continue PPI. DVT prophylaxis with SCDs. Code status: DNRCCA - do not intubate. Labs, diagnostic test and progress notes reviewed as noted in HPI. Plan of care discussed with patient. All questions answered. Patient verbalizes understanding and is agreeable with plan of care. This case was discussed with collaborating physician, Dr. Morales Zealya. 45 minutes spent reviewing past diagnostic tests, reviewing lab results, vital sign trends, medical history, reviewing medications and ordering home medications, examining patient, discussed plan of care with nursing, social work supervisor and therapy, collaborating with physician, and documenting in chart. CPT#41910 Future Appointments Appointment Date:08/21/2024 11:00:00 AM Scheduled Provider: Location:[facility] Appointment Type:Echo - Echocardiogram Adult Appointment Date:09/21/2024 01:15:00 PM Scheduled Provider: Location:[facility] Appointment Type:CV [facility] 04-19-2024 Consult note Author Dalila Biswas [facility] November 26, 2023 2:23pm Note Date/Time November 26, 2023 2:2 3pm [facility] Medical Records Department [address] [place] [address] Counseling Note - Pharmacy 11/26/23 1422 MR#: [id number] Acct: [id number] Name: STEFANO WASHINGTON Rep #:[id number] : 1940 83 From: Dalila Biswas PCP: Dr. Carl Encarnacion MD Status:ADM IN [id number] [place] [facility]conciliation Pharmacy Service has performed discharge medication reconciliation for this patient. The patient's discharge medication list was reviewed for discrepancies and discrepancies were resolved. Medications at Discharge Home Medications calcium carbonate 500 mg-vitamin D3 5 mcg (200 unit) tablet (Calcium 500 + D) 1 tab PO DAILY SUPPLEMETN 05/09/21 levothyroxine 88 mcg tablet 88 mcg PO MOTUWETHFRSA Thyroid 05/09/21 lovastatin 20 mg tablet 40 mg PO DAILY CHOLESTEROL 05/09/21 multivitamin 1 tab PO DAILY SUPPLEMENT 05/09/21 omeprazole 20 mg capsule,delayed release 20 mg PO DAILY GERD 05/09/21 nifedipine 30 mg tablet,extended release 24 hr 30 mg PO DAILY 01/12/23 cephalexin 500 mg capsule 500 mg PO Q8 3 days #0 caps 11/26/23 tramadol 50 mg tablet 50 mg PO BID PRN pain 30 days #60 tabs 11/26/23 11/26/23 1423 <Electronically signed by Dalila Biswas> Date _ Dalila Dickinson Signature (if applicable): Date CC: ~ Signed [facility] Work Phone: 1(496) 916-628604-19-2024 Discharge summary Author Kelby Lauren [facility] November 26, 2023 1:50pm Note Date/Time November 26, 2023 1:5 0pm [facility] Medical Records Department [address] [place] [address] Discharge Summary 11/26/23 1349 MR#: [id number] Acct: [id number] Name: STEFANO WASHINGTON Rep #:[id number] : 1940 83 From: Kelby saldaña DO PCP: Dr. Carl Encarnacion MD Status:ADM IN Location: [place] [address] Providers Date of Admission: 11/23/23 Date of Discharge: 11/26/23 Primary Care Physician: Dr. Carl Encarnacion MD Reason For Visit: FALL WITH WEAKNESS, RHABOMYOLYSIS Diagnosis Discharge Diagnosis (1) Fall: Status: Acute Code(s): W19.XXXA - Unspecified fall, initial encounter (2) Rhabdomyolysis: Status: Acute Code(s): M62.82 - Rhabdomyolysis (3) Generalized weakness: Status: Acute Code(s): R53.1 - Weakness (4) Urinary tract infection: Status: Acute Code(s): N39.0 - Urinary tract infection, site not specified Medications at Discharge Home Medications calcium carbonate 500 mg-vitamin D3 5 mcg (200 unit) tablet (Calcium 500 + D) 1 tab PO DAILY SUPPLEMETN 05/09/21 levothyroxine 88 mcg tablet 88 mcg PO MOTUWETHFRSA Thyroid 05/09/21 lovastatin 20 mg tablet 40 mg PO DAILY CHOLESTEROL 05/09/21 multivitamin 1 tab PO DAILY SUPPLEMENT 05/09/21 omeprazole 20 mg capsule,delayed release 20 mg PO DAILY GERD 05/09/21 nifedipine 30 mg tablet,extended release 24 hr 30 mg PO DAILY 01/12/23 cephalexin 500 mg capsule 500 mg PO Q8 3 days #0 caps 11/26/23 tramadol 50 mg tablet 50 mg PO BID PRN PRN Pain Score 4-10 #0 tabs 11/26/23 Hospital Course Operations None Procedures EKG and - (Chest x-ray) Summary of Care Provided Minutes Spent on Discharge: 35 Hospital Course: Patient is an 83-year-old female who presented [facility] ED on 11/23/2023 after a fall at home and being down for several hours after that due to weakness. Hospital course as noted below. Discharged to SNF in stable condition on 11/25. 1. Mechanical fall, acute on chronic debility Lives at home alone, uses walker for ambulation at baseline. Generally has decent functional status, suspect acute weakness is due to UTI as noted below. Denied hitting her head or loss of consciousness, no significant external injuries noted aside from small left leg skin tear, no imaging needed on admission. ? PT/OT/case management followed. Discharged to SNF in stable condition on 11/25. 2. Rhabdomyolysis, improving ? Creatinine kinase level 2446 on admission. Presumed secondary to being down for several hours after fall. CK level downtrended well with IV fluid resuscitation, last CK level of 1138 on 11/24. Kidney function has remained normal throughout hospitalization. Encouraged adequate p.o. intake on discharge. 3. Acute cystitis ? UA with 500 leukocyte esterase, positive nitrites, 4+ bacteria. Urine culturegrew > 100K E. coli, intermediate sensitivity to Macrobid but otherwise pansensitive. Patient had some delirium on 11/23 and pulled out IV, de-escalatedpatient to p.o. Keflex at that time. No further delirium during hospitalization. No systemic signs of infection during hospitalization. Continue p.o. Keflex with plan for 7-day course of antibiotics total, stop date 11/28. 4. Small left leg skin tear, stable ? About 1 inch skin tear noted in the ED. Cleaned and dressed in the ED, bandage in place. Remained stable during hospitalization. Chronic medical conditions: ? Obesity: BMI 34 on admit. Complicated hospital course, care and prognosis. ? Hypothyroidism: TSH normal. Continue home Synthroid. ? Hypertension: Continue home nifedipine. ? Hyperlipidemia: Continue home statin. ? GERD: Continue home PPI. Total clinical time spent by myself addressing the patient's medical issues, reviewing all the data, and collaborating with patient's care team: 35 minutes. Physical Exam Const alert, oriented x3 and no apparent distress Constitutional Narrative: Obese. General Appearance: cooperative and comfortable HEENT normocephalic, head/scalp atraumatic, hearing grossly normal bilaterally and nasal mucous membranes and turbinates normal Eyes PERRL, EOMs intact bilaterally and conjunctivae normal Neck full ROM Chest inspection of chest normal Resp normal respiratory effort and no use of accessory muscles Resp Narrative: Good air movement bilaterally, no wheezing noted in upper airways. No crackles noted. Cardio regular rate, regular rhythm, no murmurs and peripheral pulses 2+ throughout GI normal to inspection, nondistended, normoactive bowel sounds, soft to palpation,non-tender and non-distended Back/Spine normal ROM Extremity normal to inspection, full ROM and no pedal edema Skin Skin Narrative: Skin tear of left lower leg noted in ED, was cleaned and dressed by ED staff, bandage in place. Neuro moves all extremities and no focal motor deficits Speech: speech normal Psych mental status grossly normal Weight / BMI Weight Weight: 79.7 kg Body Mass Index (BMI) 34.3 ABG / Lab / Microbiology Data 11/26/23 08:31 11/26/23 08:31 Laboratory: Laboratory Results - last 24 hr 11/26/23 08:31: WBC 6.1, RBC 3.61 L, Hgb 11.2 L, Hct 35.4 L, MCV 98.1, MCH 31.0,MCHC 31.6 L, RDW Std Deviation 47.1 H, RDW Coeff of Fouzia 13.2, Plt Count 215, MPV10.3, Sodium 135 L, Potassium 3.3 L, Chloride 100, Carbon Dioxide 27.0, Anion Gap 8, BUN 12, Creatinine 0.70, Estim Creat Clear Calc 48.91, Est GFR (MDRD) Af Amer 102, Est GFR (MDRD) Non-Af 84, BUN/Creatinine Ratio 17.1, Glucose 117 H, Calcium 8.6 Microbiology: Microbiology 11/23/23 09:40 Urine, Clean Catch Urine Culture - Final Presumptive E. coli Meaningful Use Info Meaningful Use Meaningful Use Diagnoses (Choose all that apply): None applicable Ischemic Stroke Statin Dosing Therapy Reference: STATIN DOSE THERAPY REFERENCE: * Patients > 75 years receive moderate or high dose statin therapy. * Patients 75 years or YOUNGER should receive HIGH intensity statin dose unless contraindicated. You will be required to document reason for non-treatment if statin daily dose does not meet guidelines. HIGH DOSE STATIN THERAPY DAILY Atorvastatin > than or = to 40 mg Rosuvastatin > than or = to 20 mg Amlodipine + Atorvastatin > than or = to 2.5/40 mg Ezetimibe + Simvastatin 10/80 mg Simvastatin 80mg Discharge Plan Admission Admit Date/Time: 11/23/23 11:42 Primary Reason for Your Visit: Found down at home after fall Attending Provider: Kelby Aguilar Primary Care Provider: Carl Encarnacion Discharge Orders/Prescriptions Prescriptions: New tramadol 50 mg Tablet 50 mg PO BID PRN PRN (Reason: Pain Score 4-10) Qty: 0 0RF cephalexin 500 mg Capsule 500 mg PO Q8 3 Days Qty: 0 0RF Continued multivitamin Tablet 1 tab PO DAILY levothyroxine 88 mcg tablet 88 mcg PO MOTUWETHFRSA Patient Comments: TAKE ONE TABLET BY MOUTH WEDNESDAY THROUGH WEDNESDAY AND NONE ON WEDNESDAY. omeprazole 20 mg Capsule,Delayed Release(Dr/Ec) 20 mg PO DAILY lovastatin 20 mg tablet 40 mg PO DAILY Patient Comments: TAKE 1 TABLET BY MOUTH DAILY AT BEDTIME. FOR CHOLESTEROL. calcium carbonate-vitamin D3 [Calcium 500 + D] 500 mg(1,250mg) -200 unit Tablet 1 tab PO DAILY nifedipine 30 mg tablet extended release 24hr 30 mg PO DAILY Discontinued hydrocodone-acetaminophen [hydrocodone-acetaminophen] 5-325 mg tablet 1 tab PO Q6H PRN PRN (Reason: Pain) 3 Days Qty: 10 0RF Referrals / Follow Up: Carl Encarnacion MD [Primary Care Provider] - Disposition Disposition (needs filled in before D/C Order can be placed): Alf Facility Charges/Coding Visit Charges Inpatient E&M: 34289 Disch Hosp >30min 11/26/23 1350 <Electronically signed by Kelby Aguilar DO> Cosigner Signature (if applicable): CC: Dr. Kelby Aguilar DO; Dr. Carl Encarnacion MD~ Signed [facility] Work Phone: [phone]) 802-753504-19-2024 Discharge summary Author Kelby Aguilar [facility] November 26, 2023 1:49pm Note Date/Time November 26, 2023 1:4 7pm [facility] Medical Records Department [address] [place] [address] Transfer to Extended Care MR#: [id number] Acct: [id number] Name: STEFANO WASHINGTON Rep #:[id number] : 1940 83 From: Kelby saldaña DO PCP: Dr. Carl Encarnacion MD Status:ADM IN Certification of patient admission REQUIRED AT TIME OF ADMISSION. I CERTIFY THAT POST-HOSPITAL ECF SERVICES ARE REQUIRED TO BE GIVEN ON AN IN-PATIENT BASIS BECAUSE OF THE ABOVE NAMED PATIENT'S NEED FOR HALFWAY CARE ON A CONTINUING BASIS FOR THE CONDITION(S) FOR WHICH HE/SHE WAS RECEIVING IN-PATIENT HOSPITAL SERVICES PRIOR TO HIS/HER TRANSFER TO THE F. 11/26/23 1349<Electronically signed by Kelby Aguilar DO> Diet Diet Order/Speech Therapy: 11/23/23 12:46 Diet: Regular - General Food consistency:: Regular Liquid Consistency:: Regular/Thin Is pt able to select menu?: Yes Routine Orders/Code Status Code Status: DNRCC-A (DO NOT INTUBATE) Wound(s) Left Hoff: Wound Type: Abrasion Therapies Weight Bearing: Full weight bearing Physical Therapy: Eval and Treat Occupational Therapy: Eval and Treat Problem/Diagnosis (1) Fall: Status: Acute Code(s): W19.XXXA - Unspecified fall, initial encounter (2) Rhabdomyolysis: Status: Acute Code(s): M62.82 - Rhabdomyolysis (3) Generalized weakness: Status: Acute Code(s): R53.1 - Weakness (4) Urinary tract infection: Status: Acute Code(s): N39.0 - Urinary tract infection, site not specified Plan Patient is an 83-year-old female who presented [facility] ED on 11/23/2023 after a fall at home and being down for several hours after that due to weakness. Hospital course as noted below. Discharged to SNF in stable condition on . Mechanical fall, acute on chronic debility Lives at home alone, uses walker for ambulation at baseline. Generally has decent functional status, suspect acute weakness is due to UTI as noted below. Denied hitting her head or loss of consciousness, no significant external injuries noted aside from small left leg skin tear, no imaging needed on admission. ? PT/OT/case management followed. Discharged to SNF in stable condition on 11/25. 2. Rhabdomyolysis, improving ? Creatinine kinase level 2446 on admission. Presumed secondary to being down for several hours after fall. CK level downtrended well with IV fluid resuscitation, last CK level of 1138 on 11/24. Kidney function has remained normal throughout hospitalization. Encouraged adequate p.o. intake on discharge. 3. Acute cystitis ? UA with 500 leukocyte esterase, positive nitrites, 4+ bacteria. Urine culturegrew > 100K E. coli, intermediate sensitivity to Macrobid but otherwise pansensitive. Patient had some delirium on 11/23 and pulled out IV, de-escalatedpatient to p.o. Keflex at that time. No further delirium during hospitalization. No systemic signs of infection during hospitalization. Continue p.o. Keflex with plan for 7-day course of antibiotics total, stop date 11/28. 4. Small left leg skin tear, stable ? About 1 inch skin tear noted in the ED. Cleaned and dressed in the ED, bandage in place. Remained stable during hospitalization. Chronic medical conditions: ? Obesity: BMI 34 on admit. Complicated hospital course, care and prognosis. ? Hypothyroidism: TSH normal. Continue home Synthroid. ? Hypertension: Continue home nifedipine. ? Hyperlipidemia: Continue home statin. ? GERD: Continue home PPI. Total clinical time spent by myself addressing the patient's medical issues, reviewing all the data, and collaborating with patient's care team: 35 minutes. Allergies/Procedures Done in Hospital Allergies No Known Allergies Allergy (Verified 01/12/23 10:21) Procedures: EKG and - (Chest x-ray) Type of Care/Length of Stay Estimated LOS: Convalescent Care Less Than 30 days Type of Care Needed: Skilled Rehab Potential: Fair Prognosis: Fair Additional Orders/Day of Discharge H&P will serve as current which was dated: 11/23/23 Day of Discharge: 11/26/23 Discharge Plan Admission Admit Date/Time: 11/23/23 11:42 Primary Reason for Your Visit: Found down at home after fall Attending Provider: Kelby Aguilar Primary Care Provider: Carl Encarnacion Discharge Orders/Prescriptions Prescriptions: New tramadol 50 mg Tablet 50 mg PO BID PRN PRN (Reason: Pain Score 4-10) Qty: 0 0RF cephalexin 500 mg Capsule 500 mg PO Q8 3 Days Qty: 0 0RF Continued multivitamin Tablet 1 tab PO DAILY levothyroxine 88 mcg tablet 88 [facility] Patient Comments: TAKE ONE TABLET BY MOUTH WEDNESDAY THROUGH WEDNESDAY AND NONE ON WEDNESDAY. omeprazole 20 mg Capsule,Delayed Release(Dr/Ec) 20 mg PO DAILY lovastatin 20 mg tablet 40 mg PO DAILY Patient Comments: TAKE 1 TABLET BY MOUTH DAILY AT BEDTIME. FOR CHOLESTEROL. calcium carbonate-vitamin D3 [Calcium 500 + D] 500 mg(1,250mg) -200 unit Tablet 1 tab PO DAILY nifedipine 30 mg tablet extended release 24hr 30 mg PO DAILY Discontinued hydrocodone-acetaminophen [hydrocodone-acetaminophen] 5-325 mg tablet 1 tab PO Q6H PRN PRN (Reason: Pain) 3 Days Qty: 10 0RF Referrals / Follow Up: Carl Encarnacion MD [Primary Care Provider] - Disposition Disposition (needs filled in before D/C Order can be placed): Alf Facility 11/26/23 1349 <Electronically signed by Kelby Aguilar DO> Cosigner Signature (if applicable): CC: Dr. Carl Encarnacion MD ~ [facility] Work Phone: 1(141) 315-570804-19-2024 Progress note Author [facility] November 26, 2023 11:44am Note Date/Time November 26, 2023 11: 44am [facility] Medical Records Department [address] [place] [id number] Progress Note - Hospitalist 11/26/23 1141 MR#: [id number] Acct: [id number] Name: STEFANO WASHINGTON Rep #:[id number] : 1940 83 From: Kelby saldaña DO PCP: Dr. Carl Encarnacion MD Status:ADM IN Location: [place] [id number] Reason for Visit Reason for Visit: Diagnoses Rhabdomyolysis (11/23/23) Urinary tract infection, site not specified (11/23/23) Weakness (11/23/23) Unspecified fall, initial encounter (11/23/23) Subjective Subjective No acute events overnight. Patient seen bedside this morning, 2 other family members present. Patient was sitting up in bed, appeared fairly comfortable butwas stating that she felt slightly wheezy today. She has no history of asthma or COPD, does not use any inhalers at home. Was hoping to have a breathing treatment done to see if this would help her. She otherwise denied any other new concerns this morning. Had been told by shoe parts caser that [facility] rehab had accepted her and she was just awaiting bed placement, andshe and family were pleased by this. Objective Data Objective Data Vital Signs: Vital Signs Temp Pulse Resp BP Pulse Ox O2 Del Method 98 F 90 18 126/64 H 95 Room Air 11/26/23 10:41 11/26/23 10:41 11/26/23 10:41 11/26/23 10:41 11/26/23 10:41 11/26/23 10:41 Oxygen Delivery Method Room Air Weight: 79.7 kg Body Mass Index (BMI) 34.3 Intake & Output: Intake and Output for Last 24 Hours 11/24/23 11/25/23 11/26/23 23:59 23:59 23:59 Intake Total 2745 / 2945 800 / 800 300 / 300 Output Total 500 / 800 1100 / 1100 400 / 400 Balance 2245 / 2145 -300 / -300 -100 / -100 Lab / Micro Data 11/26/23 08:31 11/26/23 08:31 Labs: Laboratory Results - last 24 hr 11/26/23 08:31: WBC 6.1, RBC 3.61 L, Hgb 11.2 L, Hct 35.4 L, MCV 98.1, MCH 31.0,MCHC 31.6 L, RDW Std Deviation 47.1 H, RDW Coeff of Fouzia 13.2, Plt Count 215, MPV10.3, Sodium 135 L, Potassium 3.3 L, Chloride 100, Carbon Dioxide 27.0, Anion Gap 8, BUN 12, Creatinine 0.70, Estim Creat Clear Calc 48.91, Est GFR (MDRD) Af Amer 102, Est GFR (MDRD) Non-Af 84, BUN/Creatinine Ratio 17.1, Glucose 117 H, Calcium 8.6 Micro: Microbiology 11/23/23 09:40 Urine, Clean Catch Urine Culture - Final Presumptive E. coli Rhythm Strip Rhythm Strip: Sinus Rhythm Rate: 100 Ectopy: None Physical Exam Const alert, oriented x3 and no apparent distress Constitutional Narrative: Obese. General Appearance: cooperative and comfortable HEENT normocephalic, head/scalp atraumatic, hearing grossly normal bilaterally and nasal mucous membranes and turbinates normal Eyes PERRL, EOMs intact bilaterally and conjunctivae normal Neck full ROM Chest inspection of chest normal Resp normal respiratory effort and no use of accessory muscles Resp Narrative: Good air movement bilaterally, no wheezing noted in upper airways. No crackles noted. Cardio regular rate, regular rhythm, no murmurs and peripheral pulses 2+ throughout GI normal to inspection, nondistended, normoactive bowel sounds, soft to palpation,non-tender and non-distended Back/Spine normal ROM Extremity normal to inspection, full ROM and no pedal edema Skin Skin Narrative: Skin tear of left lower leg noted in ED, was cleaned and dressed by ED staff, bandage in place. Neuro moves all extremities and no focal motor deficits Speech: speech normal Psych mental status grossly normal Assessment & Plan Assessment/Plan (1) Fall: (2) Rhabdomyolysis: (3) Generalized weakness: (4) Urinary tract infection: PLAN: Plan Patient is an 83-year-old female who presented [facility] ED on 11/23/2023 after a fall at home and being down for several hours after that due to weakness. 1. Mechanical fall, acute on chronic debility Lives at home alone, uses walker for ambulation at baseline. Generally has decent functional status, suspect acute weakness is due to UTI as noted below. Denied hitting her head or loss of consciousness, no significant external injuries noted aside from small left leg skin tear, no imaging needed on admission. ? PT/OT/case management following. Accepted to an hospital rehab at [facility], awaiting bed placement. Medically stable for discharge as of 11/24. 2. Rhabdomyolysis, improving ? Creatinine kinase level 2446 on admission. Presumed secondary to being down for several hours after fall. Kidney function normal. Given 1 L bolus in the ED, repeat CK level of 2204 on hospital day 2. Given another 1 L of IV fluids on 11/23, repeat CK level of 1138 on 11/24. Kidney function has remained normal throughout hospitalization. No need for further IV fluids, encourage p.o. intake. No need to check further CK levels. 3. Acute cystitis ? UA with 500 leukocyte esterase, positive nitrites, 4+ bacteria. Urine culturepreliminarily growing > 100K E. coli, intermediate sensitivity to Macrobid but otherwise pansensitive. Patient had some delirium on 11/23 and pulled out IV, de-escalated patient to p.o. Keflex at that time. No systemic signs of infection during hospitalization. Continue p.o. Keflex with plan for 7-day course of antibiotics total. 4. Small left leg skin tear, stable ? About 1 inch skin tear noted in the ED. Cleaned and dressed in the ED, bandage in place. Monitor. Chronic medical conditions: ? Obesity: BMI 34 on admit. Complicates hospital course, care and prognosis. ? Hypothyroidism: TSH normal. Continue home Synthroid. ? Hypertension: Continue home nifedipine. ? Hyperlipidemia: Continue home statin. ? GERD: Continue home PPI. DVT prophylaxis: Lovenox CODE STATUS: DNR CCA, DNI Expected disposition: SNF, medically ready for discharge on 11/24, awaiting placement Total clinical time spent by myself addressing the patient's medical issues, reviewing all the data, and collaborating with patient's care team: 35 minutes. Charges/Coding Visit Charges Inpatient E&M: 71481 Subs Hosp L2 11/26/23 1144 <Electronically signed by Kelby Aguilar DO> Cosigner Signature (if applicable): CC: ~ Signed [facility] Work Phone: 1(555) 648-631504-18-2024 Progress note Author [facility] November 25, 2023 2:47pm Note Date/Time November 25, 2023 12: 24pm [facility] System Medical Records Department [address] [place] [id number] Progress Note - Hospitalist 11/25/23 1224 MR#: [id number] Acct: [id number] Name: STEFANO WASHINGTON Rep #:[id number] : 1940 83 From: Kelby saldaña DO PCP: Dr. Carl Encarnacion MD Status:ADM IN [id number] Reason for Visit Reason for Visit: Diagnoses Rhabdomyolysis (11/23/23) Urinary tract infection, site not specified (11/23/23) Weakness (11/23/23) Unspecified fall, initial encounter (11/23/23) Subjective Subjective No acute events overnight. Patient seen at bedside this morning, shoe parts caser also present at bedside. Patient had fairly poor therapy scores yesterday and recommendation was for SNF on discharge. Unfortunately, shoe parts caser told patient and family this morning that TCU was not able to accept her. Patient and family were okay with referrals being sent to [facility] in-hospital rehab facilities instead. Patient states that she feels better today compared yesterday, would like to work again with physical therapy to see if she does better. She denies any significant pain or discomfort this morning. No other acute concerns. Objective Data Objective Data Vital Signs: Vital Signs Temp Pulse Resp BP Pulse Ox O2 Del Method 98.3 F 79 18 115/61 92 Room Air 11/25/23 07:57 11/25/23 07:57 11/25/23 07:57 11/25/23 07:57 11/25/23 10:42 11/25/23 10:42 Oxygen Delivery Method Room Air Weight: 79.7 kg Body Mass Index (BMI) 34.3 Intake & Output: Intake and Output for Last 24 Hours 11/23/23 11/24/23 11/25/23 23:59 23:59 23:59 Intake Total 2400 / 2645 2745 / 2945 600 / 600 Output Total 500 / 800 800 / 800 Balance 2400 / 2645 2245 / 2145 -200 / -200 Lab / Micro Data 11/24/23 06:25 11/24/23 06:25 Labs: Laboratory Results - last 24 hr 11/25/23 06:46: Total Creatine Kinase 1138 H Micro: Microbiology 11/23/23 09:40 Urine, Clean Catch Urine Culture - Final Presumptive E. coli Rhythm Strip Rhythm Strip: Sinus Rhythm Rate: 100 Ectopy: None Physical Exam Const alert, oriented x3 and no apparent distress Constitutional Narrative: Obese. General Appearance: cooperative and comfortable HEENT normocephalic, head/scalp atraumatic, hearing grossly normal bilaterally and nasal mucous membranes and turbinates normal Eyes PERRL, EOMs intact bilaterally and conjunctivae normal Neck full ROM Chest inspection of chest normal Resp normal respiratory effort, normal air movement, no use of accessory muscles and clear to auscultation bilaterally Cardio regular rate, regular rhythm, no murmurs and peripheral pulses 2+ throughout GI normal to inspection, nondistended, normoactive bowel sounds, soft to palpation,non-tender and non-distended Back/Spine normal ROM Extremity normal to inspection, full ROM and no pedal edema Skin Skin Narrative: Skin tear of left lower leg noted in ED, was cleaned and dressed by ED staff, bandage in place. Neuro moves all extremities and no focal motor deficits Speech: speech normal Psych mental status grossly normal Assessment & Plan Assessment/Plan (1) Fall: (2) Rhabdomyolysis: (3) Generalized weakness: (4) Urinary tract infection: PLAN: Plan Patient is an 83-year-old female who presented [facility] ED on 11/23/2023 after a fall at home and being down for several hours after that due to weakness. 1. Mechanical fall, acute on chronic debility ? PT/OT/case management following. Lives at home alone, uses walker for ambulation at baseline. Generally has decent functional status, suspect acute weakness is due to UTI as noted below. Denied hitting her head or loss of consciousness, no significant external injuries noted aside from small left leg skin tear, no imaging needed on admission. Per therapy recommendations, patientwould be a better candidate for a long-term facility on discharge as opposed to home health care. TCU not able to accept patient, referrals sent to [facility] and [facility] rehab facilities and are pending. Patient is medically ready for discharge on 11/24, awaiting placement. 2. Rhabdomyolysis, improving ? Creatinine kinase level 2446 on admission. Presumed secondary to being down for several hours after fall. Kidney function normal. Given 1 L bolus in the ED, repeat CK level of 2204 on hospital day 2. Given another 1 L of IV fluids on 11/23, repeat CK level of 1138 on 11/24. Kidney function has remained normal throughout hospitalization. No need for further IV fluids, encourage p.o. intake. No need to check further CK levels. 3. Acute cystitis ? UA with 500 leukocyte esterase, positive nitrites, 4+ bacteria. Urine culturepreliminarily growing > 100K E. coli, intermediate sensitivity to Macrobid but otherwise pansensitive. Patient had some delirium on 11/23 and pulled out IV, de-escalated patient to p.o. Keflex at that time. No systemic signs of infection during hospitalization. Continue p.o. Keflex with plan for 7-day course of antibiotics total. 4. Small left leg skin tear, stable ? About 1 inch skin tear noted in the ED. Cleaned and dressed in the ED, bandage in place. Monitor. Chronic medical conditions: ? Obesity: BMI 34 on admit. Complicates hospital course, care and prognosis. ? Hypothyroidism: TSH normal. Continue home Synthroid. ? Hypertension: Continue home nifedipine. ? Hyperlipidemia: Continue home statin. ? GERD: Continue home PPI. DVT prophylaxis: Lovenox CODE STATUS: DNR CCA, DNI Expected disposition: SNF, medically ready for discharge on 11/24, awaiting placement Total clinical time spent by myself addressing the patient's medical issues, reviewing all the data, and collaborating with patient's care team: 35 minutes. Charges/Coding Visit Charges Inpatient E&M: 25451 Subs Hosp L2 11/25/23 4967 <Electronically signed by Kelby Aguilar DO> Cosigner Signature (if applicable): CC: ~ Signed [facility] Work Phone: 1(845) 921-711104-17-2024 Progress note Author [facility] November 24, 2023 3:43pm Note Date/Time November 24, 2023 10: 18am [facility] Medical Records Department [address] [place] [id number] Progress Note - Hospitalist 11/24/23 1018 MR#: [id number] Acct: [id number] Name: STEFANO WASHINGTON Rep #:[id number] : 1940 83 From: Kelby saldaña DO PCP: Dr. Carl Encarnacion MD Status:ADM IN Location: [place] [address] Reason for Visit Reason for Visit: Diagnoses Rhabdomyolysis (11/23/23) Urinary tract infection, site not specified (11/23/23) Weakness (11/23/23) Unspecified fall, initial encounter (11/23/23) Subjective Subjective No acute events overnight. Patient seen at bedside this morning, multiple family numbers present. Patient was sitting up comfortably in bedside chair, conversing normally, in no acute distress. She denies any fevers or chills. Denies any pain or discomfort this morning. She had been up to work with physical therapy prior to my arrival and did feel weaker from her baseline when working with them but otherwise tolerated the therapy session without issue. Noother acute concerns today. Objective Data Objective Data Vital Signs: Vital Signs Temp Pulse Resp BP Pulse Ox O2 Del Method 99.0 F 96 16 120/70 95 Room Air 11/24/23 07:30 11/24/23 07:30 11/24/23 07:30 11/24/23 07:30 11/24/23 07:30 11/24/23 07:30 Oxygen Delivery Method Room Air Weight: 79.7 kg Body Mass Index (BMI) 34.3 Intake & Output: Intake and Output for Last 24 Hours 11/22/23 11/23/23 11/24/23 23:59 23:59 23:59 Intake Total 2400 / 2645 445 / 445 Output Total 500 / 500 Balance 2400 / 2645 -55 / -55 Lab / Micro Data 11/24/23 06:25 11/24/23 06:25 Labs: Laboratory Results - last 24 hr 11/23/23 09:25: Sodium 141, Potassium 3.8, Chloride 107, Carbon Dioxide 27.0, Anion Gap 7, BUN 18, Creatinine 0.75, Estim Creat Clear Calc 50.43, Est GFR (MDRD) Af Amer 95, Est GFR (MDRD) Non-Af 79, BUN/Creatinine Ratio 24.1 H, Glucose 122 H, Calcium 9.4, Total Creatine Kinase 2446 H 11/23/23 15:03: TSH 1.59 11/24/23 06:25: WBC 8.4, RBC 3.71 L, Hgb 11.8 L, Hct 36.3 L, MCV 97.8, MCH 31.8,MCHC 32.5, RDW Std Deviation 48.0 H, RDW Coeff of Fouzia 13.3, Plt Count 203, MPV 10.7, Sodium 138, Potassium 3.7, Chloride 108 H, Carbon Dioxide 25.0, Anion Gap 5, BUN 10, Creatinine 0.58, Estim Creat Clear Calc 48.91, Est GFR (MDRD) Af [id number], Est GFR (MDRD) Non-Af 105, BUN/Creatinine Ratio 17.3, Glucose 105, Calcium 9.0, Total Creatine Kinase 2204 H Micro: Microbiology 11/23/23 09:40 Urine, Clean Catch Urine Culture - Preliminary Presumptive E. coli Rhythm Strip Rhythm Strip: Sinus Rhythm Rate: 100 Ectopy: None Physical Exam Const alert, oriented x3 and no apparent distress Constitutional Narrative: Obese. General Appearance: cooperative and comfortable HEENT normocephalic, head/scalp atraumatic, hearing grossly normal bilaterally and nasal mucous membranes and turbinates normal Eyes PERRL, EOMs intact bilaterally and conjunctivae normal Neck full ROM Chest inspection of chest normal Resp normal respiratory effort, normal air movement, no use of accessory muscles and clear to auscultation bilaterally Cardio regular rate, regular rhythm, no murmurs and peripheral pulses 2+ throughout GI normal to inspection, nondistended, normoactive bowel sounds, soft to palpation,non-tender and non-distended Back/Spine normal ROM Extremity normal to inspection, full ROM and no pedal edema Skin Skin Narrative: Skin tear of left lower leg noted in ED, was cleaned and dressed by ED staff, bandage in place. Neuro moves all extremities and no focal motor deficits Speech: speech normal Psych mental status grossly normal Assessment & Plan Assessment/Plan (1) Fall: (2) Rhabdomyolysis: (3) Generalized weakness: (4) Urinary tract infection: PLAN: Plan Patient is an 83-year-old female who presented [facility] ED on 11/23/2023 after a fall at home and being down for several hours after that due to weakness. 1. Mechanical fall, acute on chronic debility ? PT/OT/case management following. Lives at home alone, uses walker for ambulation at baseline. Generally has decent functional status, suspect acute weakness is due to UTI as noted below. Denied hitting her head or loss of consciousness, no significant external injuries noted aside from small left leg skin tear, no imaging needed on admission. Per initial therapy recommendations,appears patient would be a better candidate for a long-term facility on discharge as opposed to home health care. However, patient and family are adamant about only going to the TCU versus home and per CM, TCU unfortunately will not be an option for her. Will continue to follow closely. 2. Rhabdomyolysis, improving ? Creatinine kinase level 2446 on admission. Presumed secondary to being down for several hours after fall. Kidney function normal. Given 1 L bolus in the ED, repeat CK level of 2204 on hospital day 2. Kidney function remains normal. Will give another 1 L total of LR today, recheck CK level tomorrow. 3. Presumed UTI ? UA with 500 leukocyte esterase, positive nitrites, 4+ bacteria. Urine culturepreliminarily growing > 100K E. coli. Notably grew pansensitive E. coli on urine culture and 2021. No systemic signs of infection. Continue IV ceftriaxone for now. 4. Small left leg skin tear ? About 1 inch skin tear noted in the ED. Cleaned and dressed in the ED, bandage in place. Monitor. Chronic medical conditions: ? Obesity: BMI 34 on admit. Complicates hospital course, care and prognosis. ? Hypothyroidism: TSH normal. Continue home Synthroid. ? Hypertension: Continue home nifedipine. ? Hyperlipidemia: Continue home statin. ? GERD: Continue home PPI. DVT prophylaxis: Lovenox CODE STATUS: DNR CCA, DNI Expected disposition: SNF versus home with home health care, 1-2 days Total clinical time spent by myself addressing the patient's medical issues, reviewing all the data, and collaborating with patient's care team: 35 minutes. Charges/Coding Visit Charges Inpatient E&M: 12857 Subs Hosp L2 11/24/23 1542 <Electronically signed by Kelby Aguilar DO> Cosigner Signature (if applicable): CC: ~ Signed [facility] Work Phone: 1(105) 364-841804-17-2024 [facility] History of Present illness Narrative* Keily Rico MA - 11/24/2023 3:20 PM EDT Scan on 11/23/2023 2:46 PM by ProviderLizandro PA-C: Consultation - Emergency Medicine Scan on 11/23/2023 3:47 PM by ProviderLizandro PA-C: Consultation - Emergency Medicine Patient admitted 11/23/2023 Keily Rico [facility] Discharge summary Author Smith Ho [facility] November 23, 2023 3:37pm Note Date/Time November 23, 2023 8:4 2am [facility] System Medical Records Department [address] [place] [address] Emergency Department Summary 11/23/23 MR#: [id number] Acct: [id number] Name: STEFANO WASHINGTON Rep #:[id number] : 1940 83 From: Smith Ho MD PCP: Dr. Carl Encarnacion MD Status:ADM IN Location: [facility] EC783-9 HPI History of Present Illness Chief Complaint: General Illness Informant: patient and family Onset/Context/Timing Onset: Hours Context: Gradual Onset Timing: Continuous Current Severity: Mild Maximum Severity: Mild Narrative Narrative: 83-year-old female history of hypertension, anemia and prior PE currently not onblood thinners. Said she just felt weak in the last 24 hours. Last night around 1 AM got up to go to the bathroom and fell at home injuring her lower leg. No LOC. No head or neck injury. She denies any recent vomiting, diarrheaor fever. No dysuria. Prior similar symptoms: No Recent Illness/Hospitalization: No PFSH PFSH Medical History Former smoker GERD (gastroesophageal reflux disease) High cholesterol Hypertension Hypothyroidism Home Medications calcium carbonate 500 mg-vitamin D3 5 mcg (200 unit) tablet (Calcium 500 + D) 1 tab PO DAILY SUPPLEMETN 05/09/21 [History Last Taken 05/08/21] levothyroxine 88 mcg tablet 88 mcg PO MOTUWETHFRSA Thyroid 05/09/21 [History Last Taken Unknown] lovastatin 20 mg tablet 40 mg PO DAILY CHOLESTEROL 05/09/21 [History Last Taken 05/09/21] multivitamin 1 tab PO DAILY SUPPLEMENT 05/09/21 [History Last Taken 05/09/21] omeprazole 20 mg capsule,delayed release 20 mg PO DAILY GERD 05/09/21 [History Last Taken 05/09/21] hydrocodone-acetaminophen 5-325mg 5mg-325mg 1 tab PO Q6H PRN PRN Pain 3 days #10TABLETS 01/12/23 [Rx Last Taken Unknown] nifedipine 30 mg tablet,extended release 24 hr 30 mg PO DAILY 01/12/23 [History Last Taken Unknown] Allergy/AdvReac Type Severity Reaction Status Date / Time No Known Allergies Allergy Verified 01/12/23 10:21 Social History household members: children Smoking Status: Former smoker alcohol intake: never substance use type: does not use ROS ROS ED ROS Narrative Denies recent illness. Generalized weakness the last day or so. Review of Systems ROS Unobtainable: Denies due to encephalopathy Constitutional Constitutional ED: Denies chills or fever(s) Eyes Eyes: Denies blurry vision ENT ENT ED: Denies ear pain Cardiovascular Cardiovascular: Denies chest pain Respiratory/Chest Respiratory/Chest: Denies cough or dyspnea Gastrointestinal Gastrointestinal: Denies abdominal pain, diarrhea, nausea or vomiting Genitourinary Genitourinary ED: Denies dysuria or hematuria Musculoskeletal Musculoskeletal: Denies arthralgias or back pain Integumentary Denies abscess or Abrasions Neurologic Neurologic: Denies headache(s) Psychiatric Psychiatric: Denies anxiety or depression Endocrine Endocrinology: Denies cold intolerance Hematologic/Lymphatic Hematologic/Lymphatic: Reports none Allergic/Immunologic Allergic/Immunologic ED: Denies mouth swelling, tongue swelling or urticaria EXAM Physical Exam Narrative Exam Narrative: Open 83-year-old female. Vital signs are stable afebrile. Pulse ox 95% on roomair no signs of hypoxia. H EENT exam dry reactive light. No signs of facial trauma. Scalp nontender no hematoma. Neck nontender. Back nontender. Kyphotic. Chest wall and ribs nontender. Lungs clear to auscultation bilaterally. Heart regular rhythm rate about 100 no murmur. Abdomen is soft and nontender. Normal bowel sounds no peritoneal signs. No obstruction. Pelvic girdle intact. Hips are nontender. No shortening or rotation. She has normal merchandise flow associate strength both hands. She is able to flex and extension both elbows and shoulders. Hips and, knees and ankles are nontender. Normal dorsi plantarflexion. Left lower leg anterior hoff midportion there is a horizontal about 1 inch skin tear to be cleaned and dressed. Neurologically she is awake and alert with no focal motor deficits. Answering questions following commands. Const Vital Signs: 11/23/23 08:07 11/23/23 08:14 11/23/23 09:51 Temperature 97.8 F Temperature Source Oral Pulse Rate 108 H 100 Respiratory Rate 14 16 Respiratory Effort Normal Non-Labored Respiratory Pattern Normal Blood Pressure 130/67 H 137/94 H Blood Pressure Mean 88 108 Pulse Ox 95 93 Oxygen Delivery Method Room Air Room Air Positive well nourished and well developed; Negative for cachectic, contracturesor unkempt General Appearance ED: well developed and NAD; Negative for unkempt, cachectic, contractures, cyanotic, diaphoretic or pallor Nutritional Appearance: Negative for cachectic HEENT Reports moist mucous membranes Negative for trauma or tenderness Eyes PERRL General Eye ED: Negative for pale conjunctiva or scleral icterus Neck no lymphadenopathy, supple and no JVD General: Negative for tenderness Lymph Lymphatic: Negative for other Chest Wall inspection of chest normal and palpation of chest normal Chest: Negative for other Resp normal respiratory effort and clear to auscultation bilaterally Effort and Inspection: Negative for retractions Auscultation: Negative for rales, rhonchi or wheezes Cardio regular rate, regular rhythm, S1 normal heart sound, S2 normal heart sound and no murmurs Palpation: Negative for palpable S3 or palpable S4 Rate: Negative for bradycardia or tachycardic Rhythm: Negative for abnormal rhythm GI normal to inspection, nondistended, normoactive bowel sounds, non-tender, non-distended and no masses Inspection: Negative for abdominal distention Auscultation: normoactive bowel sounds Palpation: soft; Negative for tender, guarding or rebound tenderness present Back/Spine no CVA tenderness General Back: Negative for CVA tenderness or other Cervical Spine: Negative for cervical spine tenderness Thoracic Spine / Upper Back: Negative for thoracic spinal tenderness or paraspinal muscle tenderness Lumbar Spine / Lower Back: Negative for lumbar spinal tenderness Extremity normal to inspection General Extremety ED: Negative for edema, tenderness or other findings General Extremity: Negative for edema or other findings Neuro oriented x3 and CN's II-XII intact bilaterally Sensorium / Orientation: alert; Negative for orientation impaired, lethargic or stuporous Motor Exam: general weakness Psych mental status grossly normal Appearance: Negative for unkempt Attitude: No agitated Mood & Affect: Negative for depressed, anxious or tearful Skin no rashes or lesions noted and No no wounds Skin Narrative: Skin tear left lower leg about 1 inch. Will be cleaned and dressed. General Skin Exam: Negative for jaundice or pallor Lesions: No lesion noted Rashes: No rashes noted Trauma: Negative for abrasion MDM MDM MDM Narrative Medical decision making narrative: 83-year-old female complaining generalized weakness last 24 hours. To the bathroom 1 AM this morning fell and laid on the floor about 6 to 7 hours prior to being found at her own home. Other than the small skin tear to her left lower leg she denies any other injuries. Denies fever. Denies vomiting or diarrhea. Denies chest pain or shortness of breath. Screening labs, chest x-ray and EKG will be obtained for generalized weakness. The left lower leg skin wound to be cleaned and dressed. Repeat exam patient is doing well at 11:30 AM. I went over all test results with patient and family. She will be admitted. Hospitalist on page. Due to UTI urine culture was sent. She will be started on IV Rocephin. She is also being given IV fluids times a liter due to her rhabdomyolysis. History & Record Review Discussion w/independent historian: Patient and Family Additional record(s) reviewed:: Prior inpatient record, Prior outpatient record,Prior ED visit, Prior labs and No prior records Lab Data Attestation: I reviewed the patient's lab results. Lab results narrative: CBC shows normal white count 8.8. H&H 12.3 and 37. Platelets 192. Chemistries show gap 7. Normal BUN of 18 creatinine 0.7. Glucose 122. CPK is elevated at 2446. Urinalysis is consistent with a UTI with nitrites 10-25 white cells and 4+ bacteria. Labs: Laboratory Results - last 24 hr 11/23/23 11/23/23 09:25 09:40 WBC 8.8 RBC 3.91 L Hgb 12.3 Hct 37.9 MCV 96.9 MCH 31.5 MCHC 32.5 RDW Std Deviation 47.7 H RDW Coeff of Fouzia 13.3 Plt Count 192 MPV 9.9 Immature Gran % (Auto) 0.500 Neut % (Auto) 77.0 H Lymph % (Auto) 12.9 L Labette % (Auto) 9.0 Eos % (Auto) 0.1 Baso % (Auto) 0.5 Absolute Neuts (auto) 6.8 Absolute Lymphs (auto) 1.14 Nucleated RBC % 0 Sodium 141 Potassium 3.8 Chloride 107 Carbon Dioxide 27.0 Anion Gap 7 BUN 18 Creatinine 0.75 Estim Creat Clear Calc 50.43 Est GFR (MDRD) Af Amer 95 Est GFR (MDRD) Non-Af 79 BUN/Creatinine Ratio 24.1 H Glucose 122 H Calcium 9.4 Total Creatine Kinase 2446 H Urine Color Yellow Urine Clarity Cloudy Urine pH 6.0 Ur Specific Russell 1.010 Urine Protein 30 H Urine Glucose (UA) Normal Urine Ketones 5 H Urine Occult Blood 250 H Urine Nitrite Positive H Urine Bilirubin Negative Urine Urobilinogen Normal Ur Leukocyte Esterase 500 H Urine RBC 0-5 SEEN Urine WBC 10-25 SEEN Ur Squamous Epith Cells 0-5 SEEN Urine Bacteria 4+ Urine Mucus 1+ Radiography Chest X-Ray - ED: 1 View, Read by ED Physician, Heart, Lungs, Mediastinum, Bony Structures, No Acute Disease and Chronic Changes Diagnostic Testing: Clinical Impression(s) from Imaging Studies Chest X-Ray 11/23/23 08:45 IMPRESSION: Findings suggestive scarring at the lung bases. Large hiatal hernia. Cardiomegaly. Electronically Signed: Sixto Leija MD at 9:05 EDT , Chest x-ray shows a portable film single view, interpreted by myself shows no acute abnormality. Chronic changes. Cardiomegaly. No infiltrate nor effusion. Rhythm Strip Rhythm Strip: Sinus Rhythm Rate: 100 Ectopy: None EKG Initial EKG: Attestation: I personally reviewed and interpreted this EKG as follows: Interpretation: Sinus Rhythm, No Acute Injury Pattern and RBBB Comments: Normal sinus rhythm rate 100 no acute signs of FL or ischemia. Right bundle branch block. Discharge Plan Dx/Rx/DC Orders Clinical Impression: Urinary tract infection, Generalized weakness, Rhabdomyolysis, Fall Disposition Disposition: Acute Care Hospital [facility] What to do if you have Problems For any increased pain, shortness of breath, bleeding, nausea or vomiting, chestpain, or any unexpected problems, contact your Primary Care Provider. Call [facility] ([phone]) or report to the closest Emergency Room. Call 911 if necessary. 11/23/23 1537 <Electronically signed by Smith Ho MD> Cosigner Signature (if applicable): CC: Dr. Carl Encarnacion MD ~ Signed [facility] Work Phone: [phone] [phone] History and physical note [facility] November 23, 2023 2:36pm Note Date/Time November 23, 2023 11: 38am [facility] Health System Medical Records Department [address] [place] [id number] H&P Exam - Hospitalist 11/23/23 1137 MR#: [id number] Acct: [id number] Name: STEFANO WASHINGTON Rep #:[id number] : 1940 83 From: Kelby saldaña DO PCP: Dr. Carl Encarnacion MD Status:ADM IN Location: [facility] [place] BE592-5 HPI - General General Date of Admission: 11/23/23 Date of Service: 11/23/23 Chief Complaint: Fall with weakness HPI Narrative STEFANO WASHINGTON, is a 83 F who presented to [facility] ED on 11/23/2023 after a fall at home and being down for several hours. Patient seen at bedside in the ED. Patient was laying fairly comfortably in bed, conversing normally, in no acute distress. She appeared to be fairly sharp mentally for her age. Patient states that she lives at home by herself. She unfortunately had a fall last night around 1 AM when she got up to go to the bathroom. She injured her lower leg with a fall but otherwise did not hit her head and did notlose consciousness she reports. Patient states she generally felt a bit weaker over the past 24 hours. Denies any fevers or chills over that time. Denies anyother infectious symptoms. Denies any dysuria. Denies any chest pain, shortness of breath, abdominal pain or discomfort. Patient states that she has been hospitalized here in the past back when she had COVID a few years ago, and she went to the TCU on discharge and then had home health care come into the home to help her for about 6 weeks after that. She had a very good experience with these things. She previously had a bad experience at another shelter and significantly prefers to go to the TCU on discharge if needed. In the ED, patient was found to have a creatinine kinase level of 2446. Kidney function was at baseline. CBC and BMP were otherwise benign. Chest x-ray was nonacute. UA was infectious appearing. Given her acute debility, rhabdomyolysis and concern for UTI, patient was admitted for further management. [facility] Medical History (Updated 11/23/23 @ 12:59 by Moira Vee) Chronic pain Former smoker GERD (gastroesophageal reflux disease) High cholesterol Hypertension Hypothyroidism Rheumatoid arthritis Home Medications calcium carbonate 500 mg-vitamin D3 5 mcg (200 unit) tablet (Calcium 500 + D) 1 tab PO DAILY SUPPLEMETN 05/09/21 [History Last Taken 05/08/21] levothyroxine 88 mcg tablet 88 mcg PO MOTUWETHFRSA Thyroid 05/09/21 [History Last Taken Unknown] lovastatin 20 mg tablet 40 mg PO DAILY CHOLESTEROL 05/09/21 [History Last Taken 05/09/21] multivitamin 1 tab PO DAILY SUPPLEMENT 05/09/21 [History Last Taken 05/09/21] omeprazole 20 mg capsule,delayed release 20 mg PO DAILY GERD 05/09/21 [History Last Taken 05/09/21] hydrocodone-acetaminophen 5-325mg 5mg-325mg 1 tab PO Q6H PRN PRN Pain 3 days #10TABLETS 01/12/23 [Rx Last Taken Unknown] nifedipine 30 mg tablet,extended release 24 hr 30 mg PO DAILY 01/12/23 [History Last Taken Unknown] Allergy/AdvReac Type Severity Reaction Status Date / Time No Known Allergies Allergy Verified 01/12/23 10:21 Social History household members: children Smoking Status: Former smoker alcohol intake: never substance use type: does not use ROS Constitutional Constitutional: Reports fatigue and weakness; Denies chills or fever(s) Eyes Eyes: Denies change in vision Cardiovascular Cardiovascular: Denies chest pain or syncope Respiratory/Chest Respiratory/Chest: Denies cough or shortness of breath with exertion Gastrointestinal Gastrointestinal: Denies abdominal pain, nausea or vomiting Genitourinary Genitourinary: Denies dysuria, hematuria, urinary frequency or urinary urgency Musculoskeletal Musculoskeletal: Denies arthralgias, back pain, joint pain, joint swelling or myalgias Neurologic Neurologic: Denies focal weakness, headache(s) or numbness Vital Signs Vital Signs Vital Signs: 11/23/23 08:07 11/23/23 08:14 11/23/23 09:51 Temperature 97.8 F Temperature Source Oral Pulse Rate 108 H 100 Respiratory Rate 14 16 Respiratory Effort Normal Non-Labored Respiratory Pattern Normal Blood Pressure 130/67 H 137/94 H Blood Pressure Mean 88 108 Pulse Ox 95 93 Oxygen Delivery Method Room Air Room Air Weight Weight: 84.3 kg Body Mass Index (BMI) 36.3 Physical Exam Const alert, oriented x3 and no apparent distress Constitutional Narrative: Pleasant elderly female, obese, laying comfortably in bed, conversing normally, in no acute distress. General Appearance: cooperative and comfortable HEENT normocephalic, head/scalp atraumatic, hearing grossly normal bilaterally and nasal mucous membranes and turbinates normal Eyes PERRL, EOMs intact bilaterally and conjunctivae normal Neck full ROM Chest inspection of chest normal Resp normal respiratory effort, normal air movement, no use of accessory muscles and clear to auscultation bilaterally Cardio regular rate, regular rhythm, no murmurs and peripheral pulses 2+ throughout GI normal to inspection, nondistended, normoactive bowel sounds, soft to palpation,non-tender and non-distended Back/Spine normal ROM Extremity normal to inspection, full ROM and no pedal edema Skin Skin Narrative: Skin tear of left lower leg noted in ED, was cleaned and dressed by ED staff, bandage in place. Neuro moves all extremities and no focal motor deficits Speech: speech normal Psych mental status grossly normal Results Lab / Micro Data 11/23/23 09:25 11/23/23 09:25 Labs: Laboratory Results - last 24 hr 11/23/23 09:25: WBC 8.8, RBC 3.91 L, Hgb 12.3, Hct 37.9, MCV 96.9, MCH 31.5, MCHC 32.5, RDW Std Deviation 47.7 H, RDW Coeff of Fouzia 13.3, Plt Count 192, MPV 9.9, Immature Gran % (Auto) 0.500, Neut % (Auto) 77.0 H, Lymph % (Auto) 12.9 L, Labette % (Auto) 9.0, Eos % (Auto) 0.1, Baso % (Auto) 0.5, Absolute Neuts (auto) 6.8, Absolute Lymphs (auto) 1.14, Nucleated RBC % 0, Sodium 141, Potassium 3.8, Chloride 107, Carbon Dioxide 27.0, Anion Gap 7, BUN 18, Creatinine 0.75, Estim Creat Clear Calc 50.43, Est GFR (MDRD) Af Amer 95, Est GFR (MDRD) Non-Af 79, BUN/Creatinine Ratio 24.1 H, Glucose 122 H, Calcium 9.4, Total Creatine Kinase 2446 H 11/23/23 09:40: Urine Color Yellow, Urine Clarity Cloudy, Urine pH 6.0, Ur Specific Russell 1.010, Urine Protein 30 H, Urine Glucose (UA) Normal, Urine Ketones 5 H, Urine Occult Blood 250 H, Urine Nitrite Positive H, Urine BilirubinNegative, Urine Urobilinogen Normal, Ur Leukocyte Esterase 500 H, Urine RBC 0-5 SEEN, Urine WBC 10-25 SEEN, Ur Squamous Epith Cells 0-5 SEEN, Urine Bacteria 4+,Urine Mucus 1+ Rhythm Strip Rhythm Strip: Sinus Rhythm Rate: 100 Ectopy: None Imaging Radiology Impression Chest X-Ray 11/23/23 08:45 IMPRESSION: Findings suggestive scarring at the lung bases. Large hiatal hernia. Cardiomegaly. Electronically Signed: Sixto Leija MD at 9:05 EDT , Assessment & Plan Assessment/Plan (1) Fall: (2) Rhabdomyolysis: (3) Generalized weakness: (4) Urinary tract infection: PLAN: Plan Patient is an 83-year-old female who presented [facility] ED on 11/23/2023 after a fall at home and being down for several hours after that due to weakness. 1. Mechanical fall, acute on chronic debility ? Admit under inpatient status to [facility]. PT/OT/case management consulted. Lives at home alone, uses walker for ambulation at baseline. Generally has decent functional status, suspect acute weakness is due to UTI as noted below. Denied hitting her head or loss of consciousness, no significant external injuries noted aside from small left leg skin tear, no imaging needed on admission. Will likely need either SNF or home with home health care on discharge. 2. Rhabdomyolysis ? Creatinine kinase level 2446 on admission. Presumed secondary to being down for several hours after fall. Kidney function normal. Given 1 L bolus in the ED, will hold on further fluids for now and encourage p.o. intake. Repeat CK level tomorrow. 3. Suspected UTI ? UA with 500 leukocyte esterase, positive nitrites, 4+ bacteria. Urine culturepending. Given dose of ceftriaxone in the ED, will continue this for now. 4. Small left leg skin tear ? About 1 inch skin tear noted in the ED. Cleaned and dressed in the ED, bandage in place. Monitor. Chronic medical conditions: ? Obesity: BMI 34 on admit. Complicates hospital course, care and prognosis. ? Hypothyroidism: TSH ordered. Continue home Synthroid. ? Hypertension: Continue home nifedipine. ? Hyperlipidemia: Continue home statin. ? GERD: Continue home PPI. DVT prophylaxis: Lovenox CODE STATUS: DNR CCA, DNI Expected disposition: SNF versus home with home health care, TBD Total clinical time spent by myself addressing the patient's medical issues, reviewing all the data, and collaborating with patient's care team: 35 minutes. Charges/Coding Visit Charges Inpatient E&M: 83045 Init Hosp L2 11/23/23 1436 <Electronically signed by Kelby Aguilar DO> Cosigner Signature (if applicable): CC: Dr. Kelby Aguilar DO; Dr. Carl Encarnacion MD~ Signed [facility] Work Phone: [phone] 186-335902-29-2024 Miscellaneous Notes* Telephone Encounter - Kristen Eugene PA-C - 10/07/2023 1:25 PM EST The following approved medication requests have been transmitted electronically. Requested Prescriptions Signed Prescriptions Disp Refills traMADol (ULTRAM) 50 mg tablet 60 tablet 0 Sig: Take 1 tablet by mouth two times a day for 30 days. for arthritis pain. Authorizing Provider: KRISTEN EUGENE PA-C * Telephone Encounter - Linn Molina - 10/07/2023 8:14 AM EST Patient has been identified by name and date of : Yes, Provider Alejandra Daughter phones for refill(s): Requested Prescriptions Pending Prescriptions Disp Refills traMADol (ULTRAM) 50 mg tablet 60 tablet 0 Sig: Take 1 tablet by mouth two times a day for 30 days. for arthritis pain. Date of last office visit in primary care: 08/18/2023 Date of next office visit in primary care: 02/17/2024 Please advise. Thank you. Linn Estrada. [facility]* Exam Date Time Procedure Performing Provider Status 09/09/23 12:44 PM Echocardiogram, Adult (AOH) Auth (Verified) [facility] History of Present illness Narrative* Prosper Amador - 07/26/2023 11:30 AM EST Stefano Washington 1940 07/26/2023 Oncologic problem(s): 1) Stage ICI endometrioid ovarian cancer. HPI: The patient is an 83-year-old female with a past medical history significant for hypertension,hyperlipidemia, aortic stenosis, hiatal hernia, GERD, hypothyroidism, previous history of iron deficiency anemia, osteopenia, pulmonary embolism (COVID-related-- ~04/2020; was in the hospital 75 days i ncluding ICU, received apixaban for 6 months which was stopped approximately a year ago) and ovarian cancer. Patient had a CT of the abdomen pelvis on 03/09/2023 that demonstrated a large mixed cystic and solid, multilobulated, multiseptated mass seemingly arising from the right adnexal region with extension slightly above the level of the pelvic brim measuring 11.6 x 13.0 x 15.7 cm. There was small volume pelvic ascites associated. Otherwise there were changes of vertebroplasty at L2 and a giant hiatalhernia containing the entire stomach, few loops of nonobstructed small bowel, fat and nonobstructedcolon. There is also mild bilateral hydroureteronephrosis likely from compression from mass in pelvis. Patient was referred to Dr. Castillo who performed a exploratory laparotomy, total abdominal hysterectomy, bilateral salpingo-oophorectomy, right pelvic lymph node dissection, bilateral para-aortic lymphnode dissection, infracolic omentectomy and peritoneal biopsies on 04/07/2023. At the time of surgery she was found to have a large solid mass with cystic component with purulentdrainage ruptured. There was no evidence of small or large bowel disease, liver and diaphragmatic surfaces were smooth. Small ascites noted on entry. Normal-appearing uterus, bilateral fallopian tubes and left ovary. Slightly enlarged para-aortic lymph nodes bilaterally and a small amount of endometriosis observed in the right pelvic peritoneum. Pathology: A. Right ovary and fallopian tube, salpingo-oophorectomy: - Ovary: Endometrioid adenocarcinoma with squamous differentiation, FIGO grade 1, in a background of endometrioid borderline tumor; see comment. - Fallopian tube: No significant pathologic abnormality. B. Uterus, cervix, left ovary and fallopian tube, hysterectomy with left salpingo-oophorectomy: - Cervix: No significant pathologic abnormality. - Endometrium: Atrophy. - Myometrium: Adenomyosis. - Serosa: Adhesions. - Left ovary: No significant pathologic abnormality. - Left fallopian tube: No significant pathologic abnormality. C. Left pelvic peritoneum, biopsy: Non-diagnostic specimen, tissue did not survive processing. D. Cul-de-sac peritoneum, biopsy: Benign fibrovascular tissue. E. Bladder peritoneum, biopsy: Benign fibrovascular tissue with chronic inflammation. F. Right pelvic peritoneum, biopsy: Benign fibrovascular tissue with inflammation and hemosiderin laden macrophages. G. Lymph nodes, right pelvic, dissection: Nine benign lymph nodes (0/9). H. Lymph nodes, left para-aortic, excision: Two benign lymph nodes (0/2). I. Peritoneum over right ureter, biopsy: Benign fibroadipose tissue. J. Lymph nodes, right para-aortic, excision: Three benign lymph nodes (0/3). K. Left paracolic gutter peritoneum, biopsy: Benign fibroadipose tissue. L. Right paracolic gutter peritoneum, biopsy: Benign fibroadipose tissue. M. Appendix, appendectomy: Fibrous obliteration. N. Omentum, excision: Benign fibroadipose tissue. O. Right diaphragm, biopsy: Benign fibroadipose tissue. Procedure Total hysterectomy and bilateral salpingo-oophorectomy Omentectomy Peritoneal biopsies Hysterectomy Type Abdominal Specimen Integrity Right Ovary Integrity Per operative report, the mass was ruptured prior to the surgery TUMOR Tumor Site Right ovary Tumor Size Greatest Dimension (Centimeters): 18.5 cm Histologic Type Endometrioid carcinoma Histologic Grade G1, well differentiated Ovarian Surface Involvement Not identified Fallopian Tube Surface Involvement Not identified Other Tissue / Organ Involvement Not identified Peritoneal / Ascitic Fluid Involvement Malignant cells not identified Chemotherapy Response Score (CRS) No known presurgical therapy REGIONAL LYMPH NODES Regional Lymph Node Status All regional lymph nodes negative for tumor cells Number of Lymph Nodes Examined 14 Shant Site(s) Examined Right pelvic Right para-aortic Left para-aortic pTNM CLASSIFICATION (AJCC 8th Edition) Reporting of pT, pN, and (when applicable) pM categories is based on information available to the pathologist at the time the report is issued. As per the AJCC (Chapter 1, 8th Ed.) it is the managingphysician s responsibility to establish the final pathologic stage based upon all pertinent information, including but potentially not limited to this pathology report. pT Category pT1c2 pN Category pN0 FIGO STAGE FIGO Stage IC2 Ascites was negative for malignant cells on cytology. Per initial consultation: Home from skilled care about a month. Lives in mobile home next door to daughter. Uses walker. No longer drives since Covid. Family is preparing meals for her. Good appetite. No abdominal pain now. Bowels moving regularly. Current therapy 1) carboplatin. Presents for ongoing oncologic management. Interim history: Ms. Washington presents today with her daughter, Stefano, for follow up and lab check. She received 1cycle of carboplatin on 06/10/2023. Tolerated generally well. Some fatigue, neutropenia. Her daughter reports that on her way home from previous visit, Ms. Washington decided that she did not want to proceed with further cancer treatments. Wants to focus on quality or life. (See telephone encounter 07/16/2023) She states that I don't know how many years I got left and I dont want to spend them at the doctor. This will be my last appointment here. Reviewed surveillance recommendations, NCCN guidelines, risks and benefits. Pt and daughter acknowledged and expressed understanding. Declines follow up with Dr. Castillo. Does not want to return to [place]. Does not want to take anything that may impact her blood counts. Not interested in PARP inhibitor. Declines labs and scans. Will continue to follow with Dr. Encarnacion, next appt scheduled 08/18/2023. Following with cardiology at [place]. She reports that she is feeling well. Denies illnesses or recent hospitalizations. No fevers, chills, NS. Denies SOB, CP. Energy has improved. Appetite is very good. No abdominal pain, bloating or distention. Bowels are moving regularly. No black or bloody stools. No vaginal bleeding or discharge. A ble to void her bladder to completion, no dyrusia or hematuria. Denies new aches or pains, lumps orbumps. PMH, medications and allergies personally reviewed by me today. Any changes documented in appropriate section. PAST MEDICAL HISTORY Diagnosis Date Acquired hypothyroidism 07/12/2015 Acute right-sided low back pain with right-sided sciatica 05/13/2016 Advance directive discussed with patient 06/26/2022 Discussed 06/2022, packets provided. Age-related physical debility 06/18/2021 Aortic stenosis, moderate 12/19/2021 12/19/2021 echo: small LV, EF 65%, moderate aortic stenosis with peak/mean gradient 20mmHg/12mmHg, DVI 0.40, grade 1 diastolic dysfunction. F/u annually or if symptomatic Chronic pain of right knee 10/29/2017 COVID-19 virus infection 05/07/2021 04/27/2021 Essential hypertension 10/20/2005 Gastroesophageal reflux disease without esophagitis 07/12/2015 hiatal hernia Hiatal hernia 06/18/2021 05/09/2021 CTA chest: Very large hiatal hernia containing entire stomach and other loops of bowel. History of pulmonary embolism 06/06/202105/2021 (post COVID) is to be on Eliquis till 11/07/21, stopped 12/12/2021 Iron deficiency anemia, unspecified Mixed hyperlipidemia 04/15/2011 Osteoarthritis of multiple joints 07/12/2015 Substance agreement signed 08/28/2016. On chronic Tramadol for control. Osteopenia 11/24/2006 Other hydronephrosis 03/10/2023 CT 03/2023: bilaterally Pulmonary embolism (HCC) 06/06/202105/2021 (post COVID) is to be on Eliquis till 11/07/2021 PAST SURGICAL HISTORY Procedure Laterality Date AMP /TH 08/10 JT/PHALANX W/NEURECT W/DIR CLSR right 3rd finger at PIP joint COLONOSCOPY FLX DX W/COLLJ SPEC WHEN PFRMD 02/14/2009 repeat 10 yrs, sigmoid diverticulosis, internal hemorrhoids EGD TRANSORAL BIOPSY SINGLE/MULTIPLE 02/14/2009 hiatal hernia, esophagitis, gastritis FECAL OCCULT BLOOD TEST 03/01/2017 negative PAST SURGICAL HISTORY OF uterine polyp REMV CATARACT EXTRACAP,INSERT LENS Bilateral 07/2022 TOTAL ABDOM HYSTERECTOMY 04/2023 ALLERGIES Allergen Reactions Macrobid [Nitrofura* GI Upset Current Outpatient Medications Medication Sig traMADol (ULTRAM) 50 mg tablet Take 1 tablet by mouth two times a day for 90 days. for arthritis pain. Do not start before July 11, 2023. cyanocobalamin (VITAMIN B-12) 1,000 mcg tab Take 1,000 mcg by mouth once daily. prochlorperazine (COMPAZINE) 10 mg tablet Take 1 tablet by mouth every 6 hours as needed (For chemotherapy induced nausea and vomiting). aspirin, enteric coated (ASPIRIN, ENTERIC COATED) 81 mg EC tablet Take 1 tablet by mouth once daily. levothyroxine (SYNTHROID) 88 mcg tablet TAKE ONE TABLET BY MOUTH WEDNESDAY THROUGH WEDNESDAY AND NONE ON WEDNESDAY. acetaminophen (TYLENOL) 500 mg tablet Take 1-2 tablets by mouth every 6 hours. docusate sodium (COLACE) 100 mg capsule Take 1 capsule by mouth twice daily as needed. phosphorus (K PHOS NEUTRAL) 250 mg tablet Take 1 tablet by mouth twice daily. lovastatin 40 mg tablet Take 1 tablet by mouth daily at bedtime. For cholesterol. NIFEdipine ER (PROCARDIA XL) 30 mg 24 hr tablet Take 1 tablet by mouth once daily. omeprazole (PRILOSEC) 20 mg capsule Take 1 capsule by mouth once daily. THERAPEUTIC MULTIVITAMIN TAB Take 1 tablet by mouth once daily. Calcium-Cholecalciferol (D3) 500-200 mg-unit ORAL Tab Take one(1) tablet two(2) times daily. Current Facility-Administered Medications Medication Dose Route Frequency perflutren lipid microspheres 1.3 mL in NaCl (PF) 0.9% 10 mL injection (DEFINITY) INTRAVENOUS DIRECTED PRN sodium chloride 0.9 % (flush) 10 mL (BD POSIFLUSH) 10 mL INTRAVENOUS DIRECTED PRN Social History Tobacco Use Smoking status: Former Types: Cigarettes Smokeless tobacco: Never Vaping Use Vaping Use: Never used Substance Use Topics Alcohol use: No Drug use: No Family History Adopted: Yes Problem Relation Age of Onset other (unknown) Other adopted ROS: Constitutional: No drenching night sweats. Neuro: No recent LUNDY, vertigo, dizziness. No symptoms of sensory neuropathy. HEENT: No recent change in voice, vision or hearing. Resp: No cough, wheeze of hemoptysis. No shortness of breath at rest. CVS: No exertional chest pain, PND or orthopnea. No extremity swelling/edema. No symptoms of claudication. No painful or tender varicose veins. GI: See above. : No dysuria or gross hematuria. Endo: No hot flashes. No polyuria or polydipsia. No heat or cold intolerance. Musculoskeletal: No bone, back (relieved from previous , joint and muscular pain. Derm: No current rash. No history of jaundice. No diffuse pruritis. Heme: No unusual bleeding and unexplained bruising. Psych: Normal mood. All systems reviewed on 07/26/2023 with pertinent positives and negatives as outlined in the interval history. PHYSICAL EXAM: Vitals: Blood pressure 142/69, pulse 106, temperature 36.7 C (98.1 F), weight 73.9 kg (163 lb), SpO2 98%. Somewhat frail-appearing and in no acute distress. EYES: Sclerae are anicteric bilaterally. LYMPHATIC: There is no palpable cervical, supraclavicular adenopathy. RESPIRATORY: Inspiratory breath sounds are of normal intensity in all martinez. No rales, wheezes or rhonchi. CARDIOVASCULAR: Rhythm is regular. ABDOMEN: The abdomen is nondistended. No tenderness. SKIN: No jaundice. LABS: Lab Results Component Value Date WBC 4.54 07/26/2023 HB 12.0 07/26/2023 MCV 100.0 07/26/2023 PLT 270 07/26/2023 Lab Results Component Value Date NA 137 07/26/2023 K 4.5 07/26/2023 CO2 22 07/26/2023 BUN 26 (H) 07/26/2023 CREAT 0.61 07/26/2023 TBILI 0.3 07/26/2023 TPROT 7.7 07/26/2023 ALB 4.3 07/26/2023 ALKPHOS 99 07/26/2023 ALT 19 07/26/2023 AST 26 07/26/2023 ASSESSMENT/PLAN: (C56.1) 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 (HCC) (primary encounter diagnosis) Assessment: -Stage ICI endometrioid ovarian cancer. -Seepage of tumor during surgery. -Previously reviewed recommendation from Dr. Castillo's team regarding single agent carboplatin. Agree.She is frail and would unlikely have tolerated -Received C1D1 single agent carboplatin on 06/10/2023. Cycle 2 delayed d/t Grade 3 neutropenia. Planto add pegfilgrastim to subsequent cycles since intent is cure. - Pt declined further treatment prior to receiving C2 carbo. - Reviewed surveillance recommendations, NCCN guidelines, risks and benefits in detail. Pt and daughter acknowledged and expressed understanding. - Discussed continued lab monitoring with tumor markers, as well as, surveillance CT scans with or without chemotherapy treatment, pt declines. - Pt declines follow up with Dr. Castillo. - Pt expressed that she would like to focus on quality of life. Plan: - continue to follow with PCP, cardiology - follow up as needed. Prosper Amador, REBECCA.PARATRANSIT DRIVER Portions of this note including HPI, ROS, impression/plan may have been copied forward as to provide important historical information essential in contributing to medical decision making. Documentation has been reviewed and edited as necessary to support clinical decision making for today's visit and to reflect my own independent evaluation of this patient. documented in this encounterGalion [facility]12-18-2023 NoteRegency Hospital Company12-08-2023 Miscellaneous Notes* Telephone Encounter - Amanda Coles - 07/16/2023 3:56 PM EST Scheduled with patient. * Telephone Encounter - Wilmar Forbes DO - 07/16/2023 1:20 PM EST Understood. She still requires ongoing monitoring for ovarian cancer. Please schedule follow-up office visit with me when able. CBC/CMP/CA125. Wilmar Forbes DO * Telephone Encounter - Sherin Martines LPN - 07/16/2023 12:56 PM EST Call placed to daughter. She states after her apt on 07/07 pt was trouble at the fact that her counts had not come up and was unable to get her next scheduled chemo. Daughter states that her father of cancer and had issues with his counts as well and pt stated she did not want to deal with lowcounts and fatigue. She states she is still tired since getting chemo on 06/10. Patient also voiced concerns about the need for a heart valve replacement surgery scheduled in Sep and is worried if hercounts are not good the surgeon would not allow her to have the procedure, and she wants the surgery. Daughter willing to either keep labs monitored via PCP or yourself if you wish but did not want to continue on with chemo. Sherin Martines LPN * Telephone Encounter - Sherin Martines LPN - 07/16/2023 10:01 AM EST No answer, will try again. * Telephone Encounter - Wilmar Forbes DO - 07/16/2023 9:38 AM EST So, can we find out why that is? Wilmar Forbes DO * Telephone Encounter - Amanda Coles - 07/16/2023 8:52 AM EST DaughterStefano called stating patient does not want to continue treatments and to cancel all appointments. She is going to have lab and follow up with PCP in August. All appointments canceled as requested documented in this encounterGalion Community Hospital12-04-2023 Miscellaneous Notes* Telephone Encounter - Izzy Duarte LPN - 07/12/2023 2:11 PM EST Daughter notified and wants to make sure she does not have any problems with the next prescription. Called the [facility] and spoke with the pharmacist. I let him know the prescription for Tramadoldated 07-11-23 should of been marked for 30 days and not 90 days. He is aware the next prescription will come in 30 days for refill. Izzy Duarte LPN * Telephone Encounter - Carl Encarnacion MD - 07/12/2023 12:06 PM EST Advise daughter that the previous script had two refills on it but when this one was set up it did not and I didn't catch it. So it should only be for 30 days. * Telephone Encounter - Izzy Duarte LPN - 07/12/2023 11:42 AM EST Daughter called for pt. Daughter picked up pt's Tramadol and was told the 60 tablets needed to lastfor 90 days. Daughter reports pt takes 1 twice a day and the prescription was for 60 only.. Please review. Izzy Duarte LPN documented in this encounterGalion Community Hospital11-29-2023 NoteRegency Hospital Company11-29-2023 History of Present illness Narrative* Wilmar Forbes DO - 07/07/2023 8:39 AM EST Oncologic problem(s): 1) Stage ICI endometrioid ovarian cancer. HPI: The patient is an 83-year-old female with a past medical history significant for hypertension,hyperlipidemia, aortic stenosis, hiatal hernia, GERD, hypothyroidism, previous history of iron deficiency anemia, osteopenia, pulmonary embolism (COVID-related-- ~04/2020; was in the hospital 75 days i ncluding ICU, received apixaban for 6 months which was stopped approximately a year ago) and ovarian cancer. Patient had a CT of the abdomen pelvis on 03/09/2023 that demonstrated a large mixed cystic and solid, multilobulated, multiseptated mass seemingly arising from the right adnexal region with extension slightly above the level of the pelvic brim measuring 11.6 x 13.0 x 15.7 cm. There was small volume pelvic ascites associated. Otherwise there were changes of vertebroplasty at L2 and a giant hiatalhernia containing the entire stomach, few loops of nonobstructed small bowel, fat and nonobstructedcolon. There is also mild bilateral hydroureteronephrosis likely from compression from mass in pelvis. Patient was referred to Dr. Castillo who performed a exploratory laparotomy, total abdominal hysterectomy, bilateral salpingo-oophorectomy, right pelvic lymph node dissection, bilateral para-aortic lymphnode dissection, infracolic omentectomy and peritoneal biopsies on 04/07/2023. At the time of surgery she was found to have a large solid mass with cystic component with purulentdrainage ruptured. There was no evidence of small or large bowel disease, liver and diaphragmatic surfaces were smooth. Small ascites noted on entry. Normal-appearing uterus, bilateral fallopian tubes and left ovary. Slightly enlarged para-aortic lymph nodes bilaterally and a small amount of endometriosis observed in the right pelvic peritoneum. Pathology: A. Right ovary and fallopian tube, salpingo-oophorectomy: - Ovary: Endometrioid adenocarcinoma with squamous differentiation, FIGO grade 1, in a background of endometrioid borderline tumor; see comment. - Fallopian tube: No significant pathologic abnormality. B. Uterus, cervix, left ovary and fallopian tube, hysterectomy with left salpingo-oophorectomy: - Cervix: No significant pathologic abnormality. - Endometrium: Atrophy. - Myometrium: Adenomyosis. - Serosa: Adhesions. - Left ovary: No significant pathologic abnormality. - Left fallopian tube: No significant pathologic abnormality. C. Left pelvic peritoneum, biopsy: Non-diagnostic specimen, tissue did not survive processing. D. Cul-de-sac peritoneum, biopsy: Benign fibrovascular tissue. E. Bladder peritoneum, biopsy: Benign fibrovascular tissue with chronic inflammation. F. Right pelvic peritoneum, biopsy: Benign fibrovascular tissue with inflammation and hemosiderin laden macrophages. G. Lymph nodes, right pelvic, dissection: Nine benign lymph nodes (0/9). H. Lymph nodes, left para-aortic, excision: Two benign lymph nodes (0/2). I. Peritoneum over right ureter, biopsy: Benign fibroadipose tissue. J. Lymph nodes, right para-aortic, excision: Three benign lymph nodes (0/3). K. Left paracolic gutter peritoneum, biopsy: Benign fibroadipose tissue. L. Right paracolic gutter peritoneum, biopsy: Benign fibroadipose tissue. M. Appendix, appendectomy: Fibrous obliteration. N. Omentum, excision: Benign fibroadipose tissue. O. Right diaphragm, biopsy: Benign fibroadipose tissue. Procedure Total hysterectomy and bilateral salpingo-oophorectomy Omentectomy Peritoneal biopsies Hysterectomy Type Abdominal Specimen Integrity Right Ovary Integrity Per operative report, the mass was ruptured prior to the surgery TUMOR Tumor Site Right ovary Tumor Size Greatest Dimension (Centimeters): 18.5 cm Histologic Type Endometrioid carcinoma Histologic Grade G1, well differentiated Ovarian Surface Involvement Not identified Fallopian Tube Surface Involvement Not identified Other Tissue / Organ Involvement Not identified Peritoneal / Ascitic Fluid Involvement Malignant cells not identified Chemotherapy Response Score (CRS) No known presurgical therapy REGIONAL LYMPH NODES Regional Lymph Node Status All regional lymph nodes negative for tumor cells Number of Lymph Nodes Examined 14 Shant Site(s) Examined Right pelvic Right para-aortic Left para-aortic pTNM CLASSIFICATION (AJCC 8th Edition) Reporting of pT, pN, and (when applicable) pM categories is based on information available to the pathologist at the time the report is issued. As per the AJCC (Chapter 1, 8th Ed.) it is the managingphysician s responsibility to establish the final pathologic stage based upon all pertinent information, including but potentially not limited to this pathology report. pT Category pT1c2 pN Category pN0 FIGO STAGE FIGO Stage IC2 Ascites was negative for malignant cells on cytology. Per initial consultation: Home from skilled care about a month. Lives in mobile home next door to daughter. Uses walker. No longer drives since Covid. Family is preparing meals for her. Good appetite. No abdominal pain now. Bowels moving regularly. Current therapy 1) carboplatin. Presents for ongoing oncologic management. Interim history: Received cycle 1 carboplatin 3 weeks ago. Completed PT. No longer needs WC. Using walker. Tolerated chemotherapy overall very well. Only symptomatic side effect was fatigue for few days. Her appetite is doing well. She is eating smaller meals but has no dysgeusia. No abdominal pain, bloating or distention. Bowels are moving regularly. No black or bloody stools. No vaginal bleeding ordischarge. Able to void her bladder to completion. She had no fever. PMH, medications and allergies personally reviewed by me today. Any changes documented in appropriate section. PAST MEDICAL HISTORY Diagnosis Date Acquired hypothyroidism 07/12/2015 Acute right-sided low back pain with right-sided sciatica 05/13/2016 Advance directive discussed with patient 06/26/2022 Discussed 06/2022, packets provided. Age-related physical debility 06/18/2021 Aortic stenosis, moderate 12/19/2021 12/19/2021 echo: small LV, EF 65%, moderate aortic stenosis with peak/mean gradient 20mmHg/12mmHg, DVI 0.40, grade 1 diastolic dysfunction. F/u annually or if symptomatic Chronic pain of right knee 10/29/2017 COVID-19 virus infection 05/07/2021 04/27/2021 Essential hypertension 10/20/2005 Gastroesophageal reflux disease without esophagitis 07/12/2015 hiatal hernia Hiatal hernia 06/18/2021 05/09/2021 CTA chest: Very large hiatal hernia containing entire stomach and other loops of bowel. History of pulmonary embolism 06/06/202105/2021 (post COVID) is to be on Eliquis till 11/07/21, stopped 12/12/2021 Iron deficiency anemia, unspecified Mixed hyperlipidemia 04/15/2011 Osteoarthritis of multiple joints 07/12/2015 Substance agreement signed 08/28/2016. On chronic Tramadol for control. Osteopenia 11/24/2006 Other hydronephrosis 03/10/2023 CT 03/2023: bilaterally Pulmonary embolism (HCC) 06/06/202105/2021 (post COVID) is to be on Eliquis till 11/07/2021 PAST SURGICAL HISTORY Procedure Laterality Date AMP /08/10 JT/PHALANX W/NEURECT W/DIR CLSR right 3rd finger at PIP joint COLONOSCOPY FLX DX W/COLLJ SPEC WHEN PFRMD 02/14/2009 repeat 10 yrs, sigmoid diverticulosis, internal hemorrhoids EGD TRANSORAL BIOPSY SINGLE/MULTIPLE 02/14/2009 hiatal hernia, esophagitis, gastritis FECAL OCCULT BLOOD TEST 03/01/2017 negative PAST SURGICAL HISTORY OF uterine polyp REMV CATARACT EXTRACAP,INSERT LENS Bilateral 07/2022 TOTAL ABDOM HYSTERECTOMY 04/2023 ALLERGIES Allergen Reactions Macrobid [Nitrofura* GI Upset Current Outpatient Medications Medication Sig cyanocobalamin (VITAMIN B-12) 1,000 mcg tab Take 1,000 mcg by mouth once daily. traMADol (ULTRAM) 50 mg tablet Take 1 tablet by mouth two times a day for 90 days. for arthritis pain. prochlorperazine (COMPAZINE) 10 mg tablet Take 1 tablet by mouth every 6 hours as needed (For chemotherapy induced nausea and vomiting). aspirin, enteric coated (ASPIRIN, ENTERIC COATED) 81 mg EC tablet Take 1 tablet by mouth once daily. levothyroxine (SYNTHROID) 88 mcg tablet TAKE ONE TABLET BY MOUTH WEDNESDAY THROUGH WEDNESDAY AND NONE ON WEDNESDAY. acetaminophen (TYLENOL) 500 mg tablet Take 1-2 tablets by mouth every 6 hours. docusate sodium (COLACE) 100 mg capsule Take 1 capsule by mouth twice daily as needed. phosphorus (K PHOS NEUTRAL) 250 mg tablet Take 1 tablet by mouth twice daily. lovastatin 40 mg tablet Take 1 tablet by mouth daily at bedtime. For cholesterol. NIFEdipine ER (PROCARDIA XL) 30 mg 24 hr tablet Take 1 tablet by mouth once daily. omeprazole (PRILOSEC) 20 mg capsule Take 1 capsule by mouth once daily. THERAPEUTIC MULTIVITAMIN TAB Take 1 tablet by mouth once daily. Calcium-Cholecalciferol (D3) 500-200 mg-unit ORAL Tab Take one(1) tablet two(2) times daily. Current Facility-Administered Medications Medication Dose Route Frequency perflutren lipid microspheres 1.3 mL in NaCl (PF) 0.9% 10 mL injection (DEFINITY) INTRAVENOUS DIRECTED PRN sodium chloride 0.9 % (flush) 10 mL (BD POSIFLUSH) 10 mL INTRAVENOUS DIRECTED PRN Social History Tobacco Use Smoking status: Former Types: Cigarettes Smokeless tobacco: Never Vaping Use Vaping Use: Never used Substance Use Topics Alcohol use: No Drug use: No Family History Adopted: Yes Problem Relation Age of Onset other (unknown) Other adopted ROS: Constitutional: No drenching night sweats. Neuro: No recent LUNDY, vertigo, dizziness. No symptoms of sensory neuropathy. HEENT: No recent change in voice, vision or hearing. Resp: No cough, wheeze of hemoptysis. No shortness of breath at rest. CVS: No exertional chest pain, PND or orthopnea. No extremity swelling/edema. No symptoms of claudication. No painful or tender varicose veins. GI: See above. : No dysuria or gross hematuria. Endo: No hot flashes. No polyuria or polydipsia. No heat or cold intolerance. Musculoskeletal: No bone, back (relieved from previous , joint and muscular pain. Derm: No current rash. No history of jaundice. No diffuse pruritis. Heme: No unusual bleeding and unexplained bruising. Psych: Normal mood. PHYSICAL EXAM: Vitals: Blood pressure 150/84, pulse 92, temperature 37.1 C (98.8 F), height 153 cm (5' 0.24), weight 75.3 kg (166 lb), SpO2 98 %. Somewhat frail-appearing and in no acute distress. EYES: Sclerae are anicteric bilaterally. LYMPHATIC: There is no palpable cervical, supraclavicular adenopathy. RESPIRATORY: Inspiratory breath sounds are of normal intensity in all martinez. No rales, wheezes or rhonchi. CARDIOVASCULAR: Rhythm is regular. ABDOMEN: The abdomen is nondistended. No tenderness. SKIN: No jaundice. LABS: Component Latest Ref Rng & Units 07/07/2023 WBC 3.70 - 11.00 k/uL 3.10 (L) RBC 3.90 - 5.20 m/uL 3.66 (L) Hemoglobin 11.5 - 15.5 g/dL 11.6 Hematocrit 36.0 - 46.0 % 36.1 MCV 80.0 - 100.0 fL 98.6 MCH 26.0 - 34.0 pg 31.7 MCHC 30.5 - 36.0 g/dL 32.1 RDW-CV 11.5 - 15.0 % 15.3 (H) Platelet Count 150 - 400 k/uL 190 MPV 9.0 - 12.7 fL 9.5 Neut% % 31.9 Abs Neut (ANC) 1.45 - 7.50 k/uL 0.99 (L) Lymph% % 58.7 Abs Lymph 1.00 - 4.00 k/uL 1.82 Labette% % 6.8 Abs Labette <0.87 k/uL 0.21 Eosin% % 1.6 Abs Eosin <0.46 k/uL 0.05 Baso% % 1.0 Abs Baso <0.11 k/uL 0.03 Immature Gran % % 0.0 IMMATURE GRANS (ABS) <0.10 k/uL <0.03 NRBC /100 WBC 0.0 Absolute nRBC <0.01 k/uL <0.01 DTYPE Auto ASSESSMENT/PLAN: (C56.1) 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 (HCC) (primary encounter diagnosis) Assessment: -Stage ICI endometrioid ovarian cancer. -Seepage of tumor during surgery. -Previously reviewed recommendation from Dr. Castillo's team regarding single agent carboplatin. Agree.She is frail and would unlikely have tolerated [place] doublet. -Symptomatically tolerating carboplatin very well. -Reviewed CBC. Grade 3 neutropenia. Discussed need for dose delay. Will need to add pegfilgrastim to subsequent cycles since intent is cure. Plan: -Delay cycle 2 until early next week. -Add Neulasta or Onpro depending on insurance approval. -CBC/CMP/Mag/CA 125/OV cycle #3. -Monitor CA125. -CTs following third cycle and follow-up with Dr. Castillo. Portions of this documentation were copied and pasted from previous office visit notes in order to provide a cohesive continuity of the history. The note has been reviewed and edited and updated as necessary. I spent a total of 20 minutes on the date of the service which included preparing to see the patient, [id number] patient care, completing clinical documentation, obtaining and/or reviewing separately obtained history, performing a medically appropriate examination, counseling and educating the pat ient/family/caregiver, ordering medications, tests, or procedures, communicating with other HCPs (not separately reported), and communicating results to the patient/family/caregiver. Wilmar Forbes DO documented in this encounterGalion Community Hospital11-09-2023 Miscellaneous Notes* Telephone Encounter - Korin Mantilla RN - 06/17/2023 9:34 AM EST TOXICITY CHECK SYMPTOM ASSESSMENT The patient is on carboplatin Headache: No Visual Changes: No Dizziness: No Do you have any periods of confusion? No Mood changes: No Mouth or throat pain: No Appetite: no changes in appetite, appetite good Taste changes: No Nausea: No Vomiting: No Heartburn: No. Weight gain/loss: Unable to assess Episodes of palpitations/chest discomfort/pressure/pain No Shortness of breath: No Cough: No Diarrhea: no Constipation: no Bladder/Urinary Changes: Uses depends, denies hematuria, dysuria Pain: patient stated her right hip bothers her first thing in the morning. After she gets up and walks around, the discomfort resolves. Patient stated this started a long long long time ago/ Fever: No Chills: No Cold sensitivity: No Numbness/weakness: Yes when that leg acts up and then it starts being better. (Right hip) Edema: No Skin changes: No Itching: No Yellowing of skin or eyes: No Musculoskeletal/joint changes/issues right hip discomfort in the morning Bleeding issues: No Activity Level: I get around pretty good. Patient stated she is pretty active. Do you need to take naps? No Does the patient need interventions or same day appointment:No Reinforced CURRENT treatment education based on current and anticipated symptoms. Discussed port/line care and patient verbalizes understanding: Not Applicable Patient instructed to contact office or after hours Hematology/Oncology fellow for: temperature ? 100.4; questions or concerns. Patient verbalized understanding of when to seek medical attention and after hours number protocol. Korin Mantilla RN documented in this encounterGalion Community Hospital11-03-2023 Miscellaneous Notes* Telephone Encounter - Carl Encarnacion MD - 06/11/2023 4:53 PM EDT The following approved medication requests have been transmitted electronically. Requested Prescriptions Signed Prescriptions Disp Refills traMADol (ULTRAM) 50 mg tablet 60 tablet 2 Sig: Take 1 tablet by mouth two times a day for 90 days. for arthritis pain. Authorizing Provider: CARL ENCARNACION MD * Telephone Encounter - Stephanie Wilder - 06/11/2023 10:39 AM EDT Patient needs this to be for 30 days at a time due to insurance if you can please resubmit to them. Stephanie Estrada Patient has been identified by name and date of : Yes Requested Prescriptions Pending Prescriptions Disp Refills traMADol (ULTRAM) 50 mg tablet 60 tablet 2 Sig: Take 1 tablet by mouth two times a day for 90 days. for arthritis pain. RX INSTRUCTIONS: Patient aware RX will be sent to pharmacy. No need to notify patient. Stephanie Estrada documented in this encounterGalion Community Hospital11-03-2023 Miscellaneous Notes* Telephone Encounter - Korin Mantilla RN - 06/11/2023 10:17 AM EDT CYCLE 1/DAY 1 POST TREATMENT CALL Today's date: June 11, 2023 Treatment Regimen: Carboplatin C1D1 Date: 06/10/23 Called patient to follow-up on symptom management. Spoke with patient SYMPTOM ASSESSMENT Neuro: None CV/Resp: None GI/: None Integument: None Activity: Patient reported no changes in energy level, energy level good Pain: No=0 (pain 0 on a scale of 0-10). Fever: No Chills: No Any new referrals needed? No Reinforced CURRENT treatment education based on current and anticipated symptoms. Discussed port/line care and patient verbalizes understanding: Not Applicable Patient instructed to contact office or after hours Hematology/Oncology fellow for: temperature ? 100.4; questions or concerns. Patient verbalized understanding of when to seek medical attention and after hours number protocol. Korin Mantilla RN documented in this encounterGalion Community Hospital10-30-2023 Miscellaneous Notes* Telephone Encounter - Carl Encarnacion MD - 06/07/2023 9:14 PM EDT The following approved medication requests have been transmitted electronically. Requested Prescriptions Signed Prescriptions Disp Refills traMADol (ULTRAM) 50 mg tablet 180 tablet 0 Sig: Take 1 tablet by mouth two times a day for 90 days. for arthritis pain. Authorizing Provider: CARL ENCARNACION MD PDMP website checked and validated. All prescriptions have been APPROPRIATELY filled. No suspiciousactivity was identified. 06/07/2023 by Carl Encarnacion MD * Telephone Encounter - Keily Rico MA - 06/07/2023 9:37 AM EDT Patient has been identified by name and date of : Yes Requested Prescriptions Pending Prescriptions Disp Refills traMADol (ULTRAM) 50 mg tablet 180 tablet 0 Sig: Take 1 tablet by mouth two times a day for 90 days. for arthritis pain. RX INSTRUCTIONS: Patient aware RX will be sent to pharmacy. No need to notify patient. Keily Rico MA Vira \3 Jun 2007/2023 Last refill: * Telephone Encounter - Stefano Ayala - 06/07/2023 9:05 AM EDT Patient has been identified by name and date of : Yes Requested Prescriptions Pending Prescriptions Disp Refills traMADol (ULTRAM) 50 mg tablet 180 tablet 0 Sig: Take 1 tablet by mouth two times a day for 90 days. for arthritis pain. RX INSTRUCTIONS: Patient aware RX will be sent to pharmacy. No need to nofity patient. Controlled medication - must be call in. Stefano Estrada documented in this encounterGalion [facility]10-30-2023 Miscellaneous Notes* Telephone Encounter - Angeline Shaikh - 06/07/2023 4:32 PM EDT Chemo scheduled and daughter aware of first treatment date/time. Angeline Shaikh * Telephone Encounter - Korin Mantilla RN - 06/04/2023 11:00 AM EDT PSS- completed chemo edu today. Daughter Edita aware our office will contact her with C1D1 chemo schedule. Edita stated understanding. Korin Mantilla RN * Telephone Encounter - Angeline Shaikh - 06/02/2023 3:26 PM EDT Check out comments: Labs today. - COMPLETED Chemo teaching. - SCHEDULED Start Carbo when able. CBC/CMP/Mag/CA 125/OV with cycles 2 & 3. Do not schedule chemo until office note is signed for authorization purposes. Angeline Shaikh documented in this encounterGalion [facility] Hospital10-30-2023 Miscellaneous Notes* Telephone Encounter - Susan Quick LPN - 06/07/2023 1:39 PM EDT Please file correct BMP order. Susan Quick LPN * Telephone Encounter - Wilmar Forbes DO - 06/07/2023 1:25 PM EDT Agree with starting sooner. She is quite a ways out from surgery already. Wilmar Forbes DO * Telephone Encounter - Korin Mantilla RN - 06/07/2023 1:06 PM EDT Per Pierre, we will need to check creatinine prior to receiving carbo if the last lab check was over 7days ago. Order filed for Stat BMP to have when patient starts treatment, if she starts past 7 days. Q3 week standing orders filed for CBC/CMP/Mag/CA 125. Per PSS- if patient starts this week, C2 will be delayed due to falling on a holiday week. The other option would be to start patient next week to avoid C2 falling on holiday week. This nurse informed PSS that Dr. Forbes would probably rather get patient started and then delay C2 if needed d/t lack of treatment space. Thank you. Korin Mantilla RN documented in this encounterGalion [facility] Hospital10-27-2023 NoteHNO ID: [id number] Author: Korin Mantilla RN Service: ? Author Type: Registered Nurse Type: Progress Notes Filed: 06/04/2023 1:18 PM Note Text: This visit was completed via telephone. Korin Mantilla RNRegency Hospital Company10-27-2023 History of Present illness Narrative* Korin Mantilla RN - 06/04/2023 1:17 PM EDT This visit was completed via telephone. Korin Mantilla RN * Korin Mantilla RN - 06/04/2023 1:15 PM EDT ONCOLOGY PATIENT EDUCATION NOTE TOPIC: Chemotherapy, Medications: Carboplatin READINESS TO LEARN: COGNITIVE ABILITY: Alert and oriented MOTIVATION TO LEARN: Interested FAMILY SUPPORT: High - Very involved in pt care INSTRUCTION PROVIDED TO: Patient and Daughter INSTRUCTION PROVIDED BY: Nurse Coordinator PATIENT LEARNS BEST BY: Multiple Methods FACTORS AFFECTING LEARNING: None PHYSICAL LIMITATIONS AFFECTING LEARNING: None LEARNING RESPONSE DIAGNOSIS: Ovarian Cancer METHOD OF INSTRUCTION: Individual instruction Written instruction - handouts Verbal instruction PATIENT/FAMILY RESPONSE: Verbalizes understanding of: CATHETER CARE-Correct procedure to perform catheter care FOLLOW UP PLAN: Patient instructed to call with any further issues Recommend - Recommend continued instruction and follow up as directed Follow up phone call. Contact information given. SUPPLEMENTAL MATERIAL: Written material was provided at this visit with the following information: - Chemotherapy education was provided by a pharmacist YES - Side effect management information was provided/discussed including but not limited to: anemia, appetite changes, arthralgia, bowel habit changes, diet, electrolyte disturbances, fatigue, hair loss, infection, mouth hygiene, nausea/vomitting, taste changes, thrombocytopenia YES - Provided important phone numbers and contacts during and after hours. YES - Provided information on symptoms that require immediate assistance. YES - Provided Chemotherapy when to call handouts YES - Preventing infection. YES - Treatment schedule and confirmation of appointment times. YES - Available support groups. YES - The importance of contraception during the course of chemotherapy YES - Neutropenic fever protocol discussed with patient, which included the importance of reporting anyfever of 100.4F (38.0C) or greater to the healthcare team as noted on the provided wallet card and/or magnet. YES Time Spent: 30 minutes REFERRAL (RECOMMENDATION): Social Work Korin Mantilla RN * Korin Mantilla RN - 06/04/2023 1:14 PM EDT Automotive Engineering Technician Pre Chemo Patient identified by name and date of . YES Confirmed date and time for chemotherapy ? YES Other appointments (labs, imaging) discussed? 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 NO Described the infusion room and what to expect. (What to wear, what to bring [iPad, books] amount of time treatment can take, meals and CC options for food) YES Note: Discussed whether the patient can eat prior to labs and treatment. YES Who is driving you to and from treatment? Daughter Discussed why it is important to bring someone with you. Yes Resources discussed (music therapy, Art therapy, pet therapy, etc.) NO Education on chemotherapy (drug, side effects) discussed and that the patient will be receiving a C1D1 call within 7 days of treatment. YES Other topics discussed, interventions needed: Korin Mantilla RN documented in this encounterGalion Community Hospital10-27-2023 [facility]10-27-2023 NoteRegency Hospital Company10-25-2023 Miscellaneous Notes * Telephone Encounter - Korin Mantilla RN - 06/02/2023 3:16 PM EDT Met with patient and introduced myself. Patient was given a My Journey binder with chemocare information, office contact information, thermometer, and additional chemotherapy resource booklets. Patient aware this nurse will review on scheduled appointment date. Korin Mantilla RN documented in this encounterGalion Community Hospital10-25-2023 History of Present illness Narrative* Wilmar Forbes DO - 06/02/2023 2:00 PM EDT Patient referred by Dr. Castillo for ovarian cancer. The impression and plan will be communicated by way of the shared electronic record or faxed under separate cover letter. HPI: The patient is an 83-year-old female with a past medical history significant for hypertension,hyperlipidemia, aortic stenosis, hiatal hernia, GERD, hypothyroidism, previous history of iron deficiency anemia, osteopenia, pulmonary embolism (COVID-related-- ~04/2020; was in the hospital 75 days i ncluding ICU, received apixaban for 6 months which was stopped approximately a year ago) and ovarian cancer. Patient had a CT of the abdomen pelvis on 03/09/2023 that demonstrated a large mixed cystic and solid, multilobulated, multiseptated mass seemingly arising from the right adnexal region with extension slightly above the level of the pelvic brim measuring 11.6 x 13.0 x 15.7 cm. There was small volume pelvic ascites associated. Otherwise there were changes of vertebroplasty at L2 and a giant hiatalhernia containing the entire stomach, few loops of nonobstructed small bowel, fat and nonobstructedcolon. There is also mild bilateral hydroureteronephrosis likely from compression from mass in pelvis. Patient was referred to Dr. Castillo who performed a exploratory laparotomy, total abdominal hysterectomy, bilateral salpingo-oophorectomy, right pelvic lymph node dissection, bilateral para-aortic lymphnode dissection, infracolic omentectomy and peritoneal biopsies on 04/07/2023. At the time of surgery she was found to have a large solid mass with cystic component with purulentdrainage ruptured. There was no evidence of small or large bowel disease, liver and diaphragmatic surfaces were smooth. Small ascites noted on entry. Normal-appearing uterus, bilateral fallopian tubes and left ovary. Slightly enlarged para-aortic lymph nodes bilaterally and a small amount of endometriosis observed in the right pelvic peritoneum. Pathology: A. Right ovary and fallopian tube, salpingo-oophorectomy: - Ovary: Endometrioid adenocarcinoma with squamous differentiation, FIGO grade 1, in a background of endometrioid borderline tumor; see comment. - Fallopian tube: No significant pathologic abnormality. B. Uterus, cervix, left ovary and fallopian tube, hysterectomy with left salpingo-oophorectomy: - Cervix: No significant pathologic abnormality. - Endometrium: Atrophy. - Myometrium: Adenomyosis. - Serosa: Adhesions. - Left ovary: No significant pathologic abnormality. - Left fallopian tube: No significant pathologic abnormality. C. Left pelvic peritoneum, biopsy: Non-diagnostic specimen, tissue did not survive processing. D. Cul-de-sac peritoneum, biopsy: Benign fibrovascular tissue. E. Bladder peritoneum, biopsy: Benign fibrovascular tissue with chronic inflammation. F. Right pelvic peritoneum, biopsy: Benign fibrovascular tissue with inflammation and hemosiderin laden macrophages. G. Lymph nodes, right pelvic, dissection: Nine benign lymph nodes (0/9). H. Lymph nodes, left para-aortic, excision: Two benign lymph nodes (0/2). I. Peritoneum over right ureter, biopsy: Benign fibroadipose tissue. J. Lymph nodes, right para-aortic, excision: Three benign lymph nodes (0/3). K. Left paracolic gutter peritoneum, biopsy: Benign fibroadipose tissue. L. Right paracolic gutter peritoneum, biopsy: Benign fibroadipose tissue. M. Appendix, appendectomy: Fibrous obliteration. N. Omentum, excision: Benign fibroadipose tissue. O. Right diaphragm, biopsy: Benign fibroadipose tissue. Procedure Total hysterectomy and bilateral salpingo-oophorectomy Omentectomy Peritoneal biopsies Hysterectomy Type Abdominal Specimen Integrity Right Ovary Integrity Per operative report, the mass was ruptured prior to the surgery TUMOR Tumor Site Right ovary Tumor Size Greatest Dimension (Centimeters): 18.5 cm Histologic Type Endometrioid carcinoma Histologic Grade G1, well differentiated Ovarian Surface Involvement Not identified Fallopian Tube Surface Involvement Not identified Other Tissue / Organ Involvement Not identified Peritoneal / Ascitic Fluid Involvement Malignant cells not identified Chemotherapy Response Score (CRS) No known presurgical therapy REGIONAL LYMPH NODES Regional Lymph Node Status All regional lymph nodes negative for tumor cells Number of Lymph Nodes Examined 14 Shant Site(s) Examined Right pelvic Right para-aortic Left para-aortic pTNM CLASSIFICATION (AJCC 8th Edition) Reporting of pT, pN, and (when applicable) pM categories is based on information available to the pathologist at the time the report is issued. As per the AJCC (Chapter 1, 8th Ed.) it is the managingphysician s responsibility to establish the final pathologic stage based upon all pertinent information, including but potentially not limited to this pathology report. pT Category pT1c2 pN Category pN0 FIGO STAGE FIGO Stage IC2 Ascites was negative for malignant cells on cytology. Home from skilled care about a month. Lives in mobile home next door to daughter. Uses walker. Getting PT. No longer drives since Covid. Family is preparing meals for her. Good appetite. No abdominal pain now. Bowels moving regularly. PAST MEDICAL HISTORY Diagnosis Date Acquired hypothyroidism 07/12/2015 Acute right-sided low back pain with right-sided sciatica 05/13/2016 Advance directive discussed with patient 06/26/2022 Discussed 06/2022, packets provided. Age-related physical debility 06/18/2021 Aortic stenosis, moderate 12/19/2021 12/19/2021 echo: small LV, EF 65%, moderate aortic stenosis with peak/mean gradient 20mmHg/12mmHg, DVI 0.40, grade 1 diastolic dysfunction. F/u annually or if symptomatic Chronic pain of right knee 10/29/2017 COVID-19 virus infection 05/07/2021 04/27/2021 Essential hypertension 10/20/2005 Gastroesophageal reflux disease without esophagitis 07/12/2015 hiatal hernia Hiatal hernia 06/18/2021 05/09/2021 CTA chest: Very large hiatal hernia containing entire stomach and other loops of bowel. History of pulmonary embolism 06/06/202105/2021 (post COVID) is to be on Eliquis till 11/07/21, stopped 12/12/2021 Iron deficiency anemia, unspecified Mixed hyperlipidemia 04/15/2011 Osteoarthritis of multiple joints 07/12/2015 Substance agreement signed 08/28/2016. On chronic Tramadol for control. Osteopenia 11/24/2006 Other hydronephrosis 03/10/2023 CT 03/2023: bilaterally Pulmonary embolism (HCC) 06/06/202105/2021 (post COVID) is to be on Eliquis till 11/07/2021 PAST SURGICAL HISTORY Procedure Laterality Date AMP /08/10 JT/PHALANX W/NEURECT W/DIR CLSR right 3rd finger at PIP joint COLONOSCOPY FLX DX W/COLLJ SPEC WHEN PFRMD 02/14/2009 repeat 10 yrs, sigmoid diverticulosis, internal hemorrhoids EGD TRANSORAL BIOPSY SINGLE/MULTIPLE 02/14/2009 hiatal hernia, esophagitis, gastritis FECAL OCCULT BLOOD TEST 03/01/2017 negative PAST SURGICAL HISTORY OF uterine polyp REMV CATARACT EXTRACAP,INSERT LENS Bilateral 07/2022 TOTAL ABDOM HYSTERECTOMY 04/2023 ALLERGIES Allergen Reactions Macrobid [Nitrofura* GI Upset Current Outpatient Medications Medication Sig aspirin, enteric coated (ASPIRIN, ENTERIC COATED) 81 mg EC tablet Take 1 tablet by mouth once daily. levothyroxine (SYNTHROID) 88 mcg tablet TAKE ONE TABLET BY MOUTH WEDNESDAY THROUGH WEDNESDAY AND NONE ON WEDNESDAY. acetaminophen (TYLENOL) 500 mg tablet Take 1-2 tablets by mouth every 6 hours. docusate sodium (COLACE) 100 mg capsule Take 1 capsule by mouth twice daily as needed. ondansetron orally disintegrating (ZOFRAN ODT) 4 mg disintegrating tablet Take 1 tablet by mouth every 6 hours as needed. prochlorperazine (COMPAZINE) 10 mg tablet Take 1 tablet by mouth every 6 hours as needed. phosphorus (K PHOS NEUTRAL) 250 mg tablet Take 1 tablet by mouth twice daily. traMADol (ULTRAM) 50 mg tablet Take 1 tablet by mouth twice daily for 90 days. for arthritis pain. lovastatin 40 mg tablet Take 1 tablet by mouth daily at bedtime. For cholesterol. NIFEdipine ER (PROCARDIA XL) 30 mg 24 hr tablet Take 1 tablet by mouth once daily. omeprazole (PRILOSEC) 20 mg capsule Take 1 capsule by mouth once daily. THERAPEUTIC MULTIVITAMIN TAB Take 1 tablet by mouth once daily. Calcium-Cholecalciferol (D3) 500-200 mg-unit ORAL Tab Take one(1) tablet two(2) times daily. oxyCODONE IR (ROXICODONE) 5 mg immediate release tablet Take 1 tablet by mouth every 6 hours as needed. Current Facility-Administered Medications Medication Dose Route Frequency perflutren lipid microspheres 1.3 mL in NaCl (PF) 0.9% 10 mL injection (DEFINITY) INTRAVENOUS DIRECTED PRN sodium chloride 0.9 % (flush) 10 mL (BD POSIFLUSH) 10 mL INTRAVENOUS DIRECTED PRN Social History Tobacco Use Smoking status: Former Types: Cigarettes Smokeless tobacco: Never Vaping Use Vaping Use: Never used Substance Use Topics Alcohol use: No Drug use: No Family History Adopted: Yes Problem Relation Age of Onset other (unknown) Other adopted ROS: Constitutional: No fever. No drenching night sweats. Neuro: No recent LUNDY, vertigo, dizziness or imbalance. No symptoms of sensory neuropathy. HEENT: No recent change in voice, vision or hearing. Resp: No cough, wheeze of hemoptysis. No shortness of breath at rest. CVS: No exertional chest pain, PND or orthopnea. No extremity swelling/edema. No symptoms of claudication. No painful or tender varicose veins. GI: See above. : No dysuria or gross hematuria. Endo: No hot flashes. No polyuria or polydipsia. No heat or cold intolerance. Musculoskeletal: No bone, back (relieved from previous , joint and muscular pain. Derm: No current rash. No history of jaundice. No diffuse pruritis. Heme: No unusual bleeding and unexplained bruising. Psych: Normal mood. PHYSICAL EXAM: Vitals: Blood pressure 121/71, pulse 96, temperature 36.6 C (97.9 F), weight 73.5 kg (162 lb), [id number] %. Somewhat frail-appearing and in no acute distress. EYES: Sclerae are anicteric bilaterally. LYMPHATIC: There is no palpable cervical, supraclavicular adenopathy. RESPIRATORY: Inspiratory breath sounds are of normal intensity in all martinez. No rales, wheezes or rhonchi. CARDIOVASCULAR: Rhythm is regular. ABDOMEN: The abdomen is nondistended. Well-healed incision. No tenderness. SKIN: No jaundice. LABS: Component Latest Ref Rng & Units 04/14/2023 Protein, Total 6.3 - 8.0 g/dL 5.9 (L) Albumin 3.9 - 4.9 g/dL 3.1 (L) Calcium 8.5 - 10.2 mg/dL 8.6 Bilirubin, Total 0.2 - 1.3 mg/dL 0.4 Alkaline Phosphatase 34 - 123 U/L 63 AST 13 - 35 U/L 31 ALT 7 - 38 U/L 22 Glucose 74 - 99 mg/dL 106 (H) BUN 7 - 21 mg/dL 12 Creatinine 0.58 - 0.96 mg/dL 0.55 (L) Sodium 136 - 144 mmol/L 137 Potassium 3.7 - 5.1 mmol/L 3.7 Chloride 97 - 105 mmol/L 103 CO2 22 - 30 mmol/L 22 Anion Gap 9 - 18 mmol/L 12 eGFR >=60 mL/min/1.73m 91 WBC 3.70 - 11.00 k/uL 5.40 RBC 3.90 - 5.20 m/uL 3.40 (L) Hemoglobin 11.5 - 15.5 g/dL 10.9 (L) Hematocrit 36.0 - 46.0 % 34.2 (L) MCV 80.0 - 100.0 fL 100.6 (H) MCH 26.0 - 34.0 pg 32.1 MCHC 30.5 - 36.0 g/dL 31.9 RDW-CV 11.5 - 15.0 % 13.2 Platelet Count 150 - 400 k/uL 315 MPV 9.0 - 12.7 fL 9.8 Absolute nRBC <0.01 k/uL <0.01 Magnesium 1.7 - 2.3 mg/dL 1.9 Phosphorus 2.7 - 4.8 mg/dL 3.9 ASSESSMENT/PLAN: (C56.1) 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 (HCC) (primary encounter diagnosis) Assessment: -Stage ICI endometrioid ovarian cancer. -Seepage of tumor during surgery. -Agree higher risk for recurrence. Reviewed recommendation from Dr. Castillo's team regarding single agent carboplatin. I believe that to be appropriate because I do not think she would be able to tolerate a [place] doublet. -I discussed the logistics, potential risks (including but not limited to fatigue, cytopenias, nausea and vomiting, neuropathy, infectious complications and the small potential for as a consequence of severe toxicity/complications of therapy), benefits and alternatives, as well as the personnel involved in the administration of carboplatin. I answered her questions in detail and she verbalized understanding and agreed with the recommended therapy. Please see the electronic consent document for details of doses and schedule. Plan: -Labs today. -Chemo teaching. -Start Carbo when able. -CBC/CMP/Mag/CA 125/OV with cycles 2 & 3. -Monitor CA125. -CTs following third cycle and follow-up with Dr. Castillo. Portions of this documentation were copied and pasted from previous office visit notes in order to provide a cohesive continuity of the history. The note has been reviewed and edited and updated as necessary. I spent a total of 60 minutes on the date of the service which included preparing to see the patient, [id number] patient care, completing clinical documentation, obtaining and/or reviewing separately obtained history, performing a medically appropriate examination, counseling and educating the pat ient/family/caregiver, ordering medications, tests, or procedures, and communicating results to thepatient/family/caregiver. Wilmar Forbes DO documented in this encounterGalion Community Hospital10-25-2023 NoteRegency Hospital Company10-23-2023 NoteReg[facility] Hospital Company10-23-2023 History of Present illness Narrative* Carl Encarnacion MD - 05/31/2023 8:50 AM EDT Patient's home health 485 form / care plan for certification period 05/12/2023 to 07/10/2023 reviewedand signed. Relevant medical records were reviewed. Changes were communicated to home health agency documented in this encounterGalion Community Hospital10-09-2023 NoteRegency Hospital Company10-05-2023 Miscellaneous Notes* Telephone Encounter - Carl Encarnacion MD - 05/13/2023 4:57 PM EDT Noted. * Telephone Encounter - Angeline Robbins RN - 05/13/2023 11:34 AM EDT Kumar calling from [facility] to report plan of care for patient and long-term willvisit patient 1 time a week for 2 weeks, 2 times a week for 2 weeks and 1 time a week for 3 weeks. correction will work with patient on teaching about chemotherapy and medication safety. Kumar also notes that patient has an order for Tramadol 50 mg twice a day. Patient was taking 100 mgonce a day. Kumar had explained to patient the importance of taking medication as prescribed. Angeline Robbins RN documented in this encounterGalion Community Hospital09-25-2023 History of Present illness Narrative* Eliot Castillo MD - 05/03/2023 4:45 PM EDT Gynecologic Oncology [facility] Postop Re: Stefano Washington [facility]#: [id number] Date of Service: 05/03/2023 Dr. 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 TREATMENT HISTORY: 03/09/23 CT A/P 1. Nearly 16 cm mixed cystic and solid pelvic mass likely arising from the right ovary likely reflecting an ovarian epithelial tumor. Small volume pelvic ascites. Gynecological oncologic consultationis advised. 2. Mild bilateral hydronephrosis. 3. Giant hiatal hernia, as described. 03/22/2023 Consult: 83yo female presents with her family for a consult from Dr. Graves regarding a pelvic mass. Daughter reports that her mother developed PE after Covid infection, on Eliquis for6 months and discontinued a year ago. Patient is taking laxatives for management of constipation. Reviewed her CTAP from 03/09/2023 showing ~ 16 cm mixed cystic and solid pelvic mass and small volumepelvic ascites. No evidence of metastasis on imaging. Discussed a plan for surgery to remove the mass. I don't recommend a biopsy as if the mass is cancerous, there is a chance that it will spread the cancer cells. Given the large size of her mass, I recommend an open surgery to remove the uterus, cervix, tubes, ovaries. Reviewed the possibility of benign, borderline, or malignant on intraoperative frozen section pathology. If a borderline or invasive malignancy is found, we will perform comprehensive staging with possible removal of lymph nodes, omentum, biopsies, tumor, possible bowel resection, possible blood product transfusion. Patient expressed understanding and agreement with the plan. An informed consent for surgery was signed. Will have scheduling office contact patient regardinga date for surgery. Plan to obtain preop imaging and blood work for tumor markers. Component Latest Ref Rng & Units 03/22/2023 CA 125 <39 U/mL 111 (H) CA19-9 <36.0 U/mL 48.0 (H) CEA <=2.9 ng/mL 3.4 (H) 04/07/2023 Exploratory laparotomy, ERIKA-BSO, right pelvic and bilateral periaortic lymphadenectomy, peritoneal biopsies, omentectomy, appendectomy PREOPERATIVE DIAGNOSIS: Right ovarian mass, slightly elevated CA-125, ascites. POSTOPERATIVE DIAGNOSIS: Probable stage IC, pending final pathology, endometrioid tumor of at leastborderline malignant potential. PELVIC WASHING Negative for malignant cells. Findings: Large solid mass with cystic component with purulent drainage. Found to be ruptured once in the abdomen. No evidence of small or large bowel disease. Liver and diaphragmatic surfaces smooth. Small ascites on entry. Normal appearing uterus, bilateral fallopian tubes, left ovary. Slightly enlarged para-aortic lymph nodes bilaterally. Small amount of endometriosis found in the right pelvic peritoneum. FINAL DIAGNOSIS A. Right ovary and fallopian tube, salpingo-oophorectomy: - Ovary: Endometrioid adenocarcinoma with squamous differentiation, FIGO grade 1, in a background of endometrioid borderline tumor; see comment. - Fallopian tube: No significant pathologic abnormality. B. Uterus, cervix, left ovary and fallopian tube, hysterectomy with left salpingo-oophorectomy: - Cervix: No significant pathologic abnormality. - Endometrium: Atrophy. - Myometrium: Adenomyosis. - Serosa: Adhesions. - Left ovary: No significant pathologic abnormality. - Left fallopian tube: No significant pathologic abnormality. C. Left pelvic peritoneum, biopsy: Non-diagnostic specimen, tissue did not survive processing. D. Cul-de-sac peritoneum, biopsy: Benign fibrovascular tissue. E. Bladder peritoneum, biopsy: Benign fibrovascular tissue with chronic inflammation. F. Right pelvic peritoneum, biopsy: Benign fibrovascular tissue with inflammation and hemosiderin laden macrophages. G. Lymph nodes, right pelvic, dissection: Nine benign lymph nodes (0/9). H. Lymph nodes, left para-aortic, excision: Two benign lymph nodes (0/2). I. Peritoneum over right ureter, biopsy: Benign fibroadipose tissue. J. Lymph nodes, right para-aortic, excision: Three benign lymph nodes (0/3). K. Left paracolic gutter peritoneum, biopsy: Benign fibroadipose tissue. L. Right paracolic gutter peritoneum, biopsy: Benign fibroadipose tissue. M. Appendix, appendectomy: Fibrous obliteration. N. Omentum, excision: Benign fibroadipose tissue. O. Right diaphragm, biopsy: Benign fibroadipose tissue. Diagnosis Comment Dr. Nicole Maher reviewed selected slides from part A and agrees with the diagnosis. Synoptic Report OVARY or FALLOPIAN TUBE or PRIMARY PERITONEUM 8th Edition - Protocol posted: 10/28/2022 OVARY OR FALLOPIAN TUBE OR PRIMARY PERITONEUM: RESECTION - All Specimens SPECIMEN Procedure Total hysterectomy and bilateral salpingo-oophorectomy Omentectomy Peritoneal biopsies Hysterectomy Type Abdominal Specimen Integrity Right Ovary Integrity Per operative report, the mass was ruptured prior to the surgery TUMOR Tumor Site Right ovary Tumor Size Greatest Dimension (Centimeters): 18.5 cm Histologic Type Endometrioid carcinoma Histologic Grade G1, well differentiated Ovarian Surface Involvement Not identified Fallopian Tube Surface Involvement Not identified Other Tissue / Organ Involvement Not identified Peritoneal / Ascitic Fluid Involvement Malignant cells not identified Chemotherapy Response Score (CRS) No known presurgical therapy REGIONAL LYMPH NODES Regional Lymph Node Status All regional lymph nodes negative for tumor cells Number of Lymph Nodes Examined 14 Shant Site(s) Examined Right pelvic Right para-aortic Left para-aortic pTNM CLASSIFICATION (AJCC 8th Edition) Reporting of pT, pN, and (when applicable) pM categories is based on information available to the pathologist at the time the report is issued. As per the AJCC (Chapter 1, 8th Ed.) it is the managingphysician s responsibility to establish the final pathologic stage based upon all pertinent information, including but potentially not limited to this pathology report. pT Category pT1c2 pN Category pN0 FIGO STAGE FIGO Stage IC2 04/10/2023 CTPE IMPRESSION: No CT evidence of pulmonary embolism. Scattered reticular changes with mild traction bronchiectasis with architectural distortion, intralobular interstitial thickening, and subpleural reticulation concerning for interstitial lung disease/fibrosis. The distribution of lung disease is seen consistent with UIP. Mild mosaic attenuation suggestive of small airways disease. Fibrotic HP, or post COVID related to interstitial fibrosis not completely excluded. Nonspecific groundglass opacities may be inflammatory, secondary to interstitial lung disease or superimposed aspiration/pneumonia. Trace/minimal bilateral pleural effusion. Trace pericardial effusion. Redemonstration of a large type IV hiatal hernia containing stomach and nondilated bowel. Postoperative pneumoperitoneum presumed. HEALTH MAINTENANCE: Last pap: 2004 negative Last sunni: 2008 SUBJECTIVE/INTERVAL HISTORY: Patient is feeling well and denies shortness of breath, nausea, vomiting, constipation, problems urinating, unexplained weight loss, or vaginal bleeding. OBJECTIVE: BP 144/66 Pulse 93 Temp 36.4 C (97.5 F) (Oral) Wt 72.9 kg (160 lb 12.8 oz) BMI 29.97 kg/m Female in no acute distress. Abdominal - Incision well-healed, without evidence of hernia or infection. No CVA tenderness. The bowel sounds are positive. The abdomen is soft, nontender and there is no inguinal adenopathy. Pelvic - Normal vulva and vaginal cuff. Bimanual exam reveals no tenderness. 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 Minimal residual pain at this point. Surgical incisions are intact, healing well, and show no signs of infection. Postop restrictions and wound care reviewed. Patient isdoing well postop. She can resume her lovastatin now. 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 Reviewed stage IC2 as her mass was ruptured prior to the surgery. Given this, I recommend that she pursue 3 cycles of chemotherapy to lower the risk of recurrence. Patient originally adamantly opposed to taking chemotherapy therefore a compromise would be to treated with carboplatin as a single agentwhich will be better tolerated. Early stage disease the superiority of carboplatin and Taxol over carboplatin has not been established by any randomized trials. Patient can receive treatment with Dr Forbes in [place] and return here after completion of chemotherapy. Her preop CA125 was elevated to 11 1 so she can follow this to monitor her response. Patient expressed understanding and agreement with the plan. Consult placed to Hem/Onc. ATTESTATION: By signing my name below, Cirsta Babcock, attest that this documentation has been prepared under the direction and in the presence of Eliot Castillo MD. Electronically signed: Matilda Sawyer, May 03, 2023 3:36 PM Provider Attestation: Eliot Babcock MD, personally performed the services described in this documentation. All medicalrecord entries made by the matilda were at my direction and in my presence. I have reviewed the chart and discharge instructions (if applicable) and agree that the record reflects my personal performance and is accurate and complete. Eliot Castillo MD May 04, 2023 4:44 AM I have confirmed and edited as necessary, the history of the present illness (HPI). Interval changes in the history of present illness are noted. I have confirmed and edited as necessary, the PFSH and ROS obtained by others. I saw the patient and personally participated in the núñez components and agree with the documented findings and plan. Sincerely, Eliot Castillo M.D. Reviewed and corrected by Eliot Castillo M.D. The previous note written by Dr. Castillo dated 03/22/2023 was copied forward and the necessary changes were made. documented in this encounterGalion [facility]09-25-[facility]23 NoteHNO ID: [id number] Author: Eliot Castillo MD Service: ? Author Type: Physician Type: Progress Notes Filed: 05/04/2023 4:46 AM Note Text: Gynecologic Oncology [facility] Postop Re: Stefano Washington [facility]#: [id number] Date of Service: 05/03/2023 Dr. 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 Briefly, she is an 83 year old female with a past medical history of hypothyroidism, aortic stenosis, hypertension, hiatal hernia, PE, GERD, PE who was initially referred for the evaluation of pelvic mass. TREATMENT HISTORY: 03/09/23 CT A/P 1. Nearly 16 cm mixed cystic and solid pelvic mass likely arising from the right ovary likely reflecting an ovarian epithelial tumor. Small volume pelvic ascites. Gynecological oncologic consultation is advised. 2. Mild bilateral hydronephrosis. 3. Giant hiatal hernia, as described. 03/22/2023 Consult: 83yo female presents with her family for a consult from Dr. Graves regarding a pelvic mass. Daughter reports that her mother developed PE after Covid infection, on Eliquis for 6 months and discontinued a year ago. Patient is taking laxatives for management of constipation. Reviewed her CTAP from 03/09/2023 showing ~ 16 cm mixed cystic and solid pelvic mass and small volume pelvic ascites. No evidence of metastasis on imaging. Discussed a plan for surgery to remove the mass. I don't recommend a biopsy as if the mass is cancerous, there is a chance that it will spread the cancer cells. Given the large size of her mass, I recommend an open surgery to remove the uterus, cervix, tubes, ovaries. Reviewed the possibility of benign, borderline, or malignant on intraoperative frozen section pathology. If a borderline or invasive malignancy is found, we will perform comprehensive staging with possible removal of lymph nodes, omentum, biopsies, tumor, possible bowel resection, possible blood product transfusion. Patient expressed understanding and agreement with the plan. An informed consent for surgery was signed. Will have scheduling office contact patient regarding a date for surgery. Plan to obtain preop imaging and blood work for tumor markers. Component Latest Ref Rng AND Units 03/22/2023 CA 125 <39 U/mL 111 (H) CA19-9 <36.0 U/mL 48.0 (H) CEA <=2.9 ng/mL 3.4 (H) 04/07/2023 Exploratory laparotomy, ERIKA-BSO, right pelvic and bilateral periaortic lymphadenectomy, peritoneal biopsies, omentectomy, appendectomy PREOPERATIVE DIAGNOSIS: Right ovarian mass, slightly elevated CA-125, ascites. POSTOPERATIVE DIAGNOSIS: Probable stage IC, pending final pathology, endometrioid tumor of at least borderline malignant potential. PELVIC WASHING Negative for malignant cells. Findings: Large solid mass with cystic component with purulent drainage. Found to be ruptured once in the abdomen. No evidence of small or large bowel disease. Liver and diaphragmatic surfaces smooth. Small ascites on entry. Normal appearing uterus, bilateral fallopian tubes, left ovary. Slightly enlarged para-aortic lymph nodes bilaterally. Small amount of endometriosis found in the right pelvic peritoneum. FINAL DIAGNOSIS A. Right ovary and fallopian tube, salpingo-oophorectomy: - Ovary: Endometrioid adenocarcinoma with squamous differentiation, FIGO grade 1, in a background of endometrioid borderline tumor; see comment. - Fallopian tube: No significant pathologic abnormality. B. Uterus, cervix, left ovary and fallopian tube, hysterectomy with left salpingo-oophorectomy: - Cervix: No significant pathologic abnormality. - Endometrium: Atrophy. - Myometrium: Adenomyosis. - Serosa: Adhesions. - Left ovary: No significant pathologic abnormality. - Left fallopian tube: No significant pathologic abnormality. C. Left pelvic peritoneum, biopsy: Non-diagnostic specimen, tissue did not survive processing. D. Cul-de-sac peritoneum, biopsy: Benign fibrovascular tissue. E. Bladder peritoneum, biopsy: Benign fibrovascular tissue with chronic inflammation. F. Right pelvic peritoneum, biopsy: Benign fibrovascular tissue with inflammation and hemosiderin laden macrophages. G. Lymph nodes, right pelvic, dissection: Nine benign lymph nodes (0/9). H. Lymph nodes, left para-aortic, excision: Two benign lymph nodes (0/2). I. Peritoneum over right ureter, biopsy: Benign fibroadipose tissue. J. Lymph nodes, right para-aortic, excision: Three benign lymph nodes (0/3). K. Left paracolic gutter peritoneum, biopsy: Benign fibroadipose tissue. L. Right paracolic gutter peritoneum, biopsy: Benign fibroadipose tissue. M. Appendix, appendectomy: Fibrous obliteration. N. Omentum, excision: Benign fibroadipose tissue. O. Right diaphragm, biopsy: Benign fibroadipose tissue. Diagnosis Comment Dr. Nicole Maher review (more content not included)...[id number] Miscellaneous Notes* Telephone Encounter - Carl Encarnacion MD - 05/01/2023 7:59 PM EDT The following approved medication requests have been transmitted electronically. Requested Prescriptions Signed Prescriptions Disp Refills levothyroxine (SYNTHROID) 88 mcg tablet 90 tablet 1 Sig: TAKE ONE TABLET BY MOUTH WEDNESDAY THROUGH WEDNESDAY AND NONE ON WEDNESDAY. Authorizing Provider: CARL ENCARNACION MD * Telephone Encounter - Baltazar Bazzi LPN - 05/01/2023 9:38 AM EDT Patient phones requesting refills as follows: Requested Prescriptions Pending Prescriptions Disp Refills levothyroxine (SYNTHROID) 88 mcg tablet [Pharmacy Med Name: LEVOTHYROXINE 88 MCG TABLET] 90 tablet 1 Sig: TAKE ONE TABLET BY MOUTH WEDNESDAY THROUGH WEDNESDAY AND NONE ON WEDNESDAY. VIRA 01/27/23 RR NOV 05/11/23 RR; 08/18/23 CRIS Please review and advise. Baltazar Bazzi LPN documented in this encounterGalion [facility] Hospital09-06-[facility] 04-09-2023 Miscellaneous Notes* Telephone Encounter - Tamiko Ramirez LPN - 04/09/2023 3:08 PM EDT Keisha from [facility] returned call and family declined Home Health, family wants patient to goto TCU or Rehab. Casemanager at [facility] will have to work on this case. * Telephone Encounter - Maru Loya Cma - 04/09/2023 2:24 PM EDT Left message for Keisha to return call to office Maru Loya Cma * Telephone Encounter - Annmarie Tucker APRN.CNP - 04/09/2023 2:12 PM EDT Please call Keisha and let her know Dr. Encarnacion will follow. * Telephone Encounter - Tamiko Ramirez LPN - 04/09/2023 1:42 PM EDT //Keisha from [facility] calling patient is currently in main campus had ovarian mass, discharging sometime over the weekend. They received order for long-term, PT/OT. Asking if PCP would follow and sign orders and give verbal order for delay in start of care until 04/13/2023? Aware PCP is out of office this afternoon. Please advise documented in this encounterGalion Community Hospital09-01-2023 [facility]-31-[facility]30-[facility]30-[facility]30-[facility]23 [facility]08-29-2023 Instructions* Patient Instructions* Ousmane Jones APRN.ROGE CLEMONS - 04/06/2023 3:43 PM EDT PATIENT PREOPERATIVE INSTRUCTIONS No ref. provider found has scheduled you for your procedure at this surgery center: [facility] [place] [facility] Scheduling Office: [phone] --[address] [place] [address]. Please read below carefully for your personalized instructions. Dietary Restrictions: - Follow bowel prep and given to you by your surgeon. - You may have 12 ounces of clear liquids (water, clear juices such as apple juice or gatorade, carbonated beverages, clear tea, black coffee, jello) until 2 hours before scheduled arrival at facility. Medications: Unless instructed differently below, stay on all of your medications until your surgery. Approved medications to take the morning of surgery with a sip of water: synthroid, nifedipine, omeprazole If you start any new medications after today's visit, please contact the surgeon's office. Blood Thinning Medications: - Stop NSAIDS (Ibuprofen, Advil, Aleve, Motrin, Celebrex, Mobic, etc.) 7 days before surgery, as directed by your surgeon. - Stop Aspirin 7 days before surgery, as directed by your surgeon. - Stop Vitamin E, ALL multi-vitamins, herbals and dietary supplements 7 days before surgery. - You may take Tylenol (Acetaminophen) or any of your pain medications that do not contain aspirin or NSAIDS as needed. Important Reminders: - Candy, mints, and tobacco products are NOT permitted the morning of surgery. - Hearing aids, dentures and glasses may be worn the morning of surgery. - NO jewelry, body piercings, makeup, hairpins or contacts are to be worn the day of surgery. If you develop symptoms such as a fever, cold, or flu, or have other changes to your health within TWO DAYS of scheduled surgery or the morning of surgery, please contact the surgery center above. Personal Belongings: -Please have photo ID and insurance cards. -If you do not have a copy of advance directives on file with us, please bring a copy with you on the day of surgery. - Leave ALL valuables and money at home or with family members. For Outpatient Procedures: - YOU MUST HAVE A RESPONSIBLE BRUSH FINISHER TAKE YOU HOME. A VENEER TAPER OR BARREL LATHE OPERATOR CANNOT BE MADE A RESPONSIBLE BRUSH FINISHER. - We recommend that a responsible person stays with you overnight to take care of you. - You cannot stay in a hotel alone after outpatient surgery. You will not be permitted to have yoursurgery, if you do not have someone to take care of you. Arrival Time for Surgery: - To obtain your arrival time for surgery, call your physician's office the day before your surgery. - If your surgery is scheduled for Wednesday, call the Wednesday before. Your surgeon s mill order scheduler will tell you what time to call the office. - If you have not reached the departmental mill order scheduler by 5 P.M., call [phone] after 5 P.M. the day before your surgery. Please be aware that emergency situations arise, which may delay or change your surgical time. If this happens, we will notify you as soon as possible and regret any inconvenience. If you already have an Advance Directive, please fax a copy to [phone] or email to for it to be added to your chart. If you do not have an Advance Directive, you can find the appropriate form and more information at [email or web address]. We recommend that youcomplete the Advance Directive form found on the website and bring it with you the day of your surgery. It can be witnessed and scanned into your chart that day. Viviana Jones APRN.CNP, DNP documented in this encounterGalion Community Hospital08-29-2023 Miscellaneous Notes* Telephone Encounter - Ousmane Jones APRN.CNP, DNP - 04/06/2023 3:43 PM EDT Preop instruction documented in this encounterGalion Community Hospital08-29-2023 History and physical note * Ousmane Jones, REBECCA.KACI, ROGE - 04/06/2023 3:00 PM EDT PREANESTHESIA CONSULT CLINIC TELEHEALTH VISIT I have communicated my name and active licensure. The patient's identity and physical location wereverified at the time of this visit. Either the patient or their legal specialty sales representative has been informed of the risks and benefits of and alternatives to treatment through a remote evaluation and consents to proceed with the evaluation remotely. Patient has been identified by name and date of : Yes This is a virtual visit using [employer] video visit. It require patient-provider interaction for the medical decision making as documented below. Reason for contact: PACC visit Accompanied by: Self Scheduled Surgery: HYSTERECTOMY ABDOMINAL TOTAL WITH SALPINGO-OOPHORECTOMY BILATERAL with Eliot Castillo MD on 04/07/2023 at [facility]. Subjective CHIEF COMPLAINT: Patient presents with: Anesthesia Consult: Preop evaluation HPI: Ms. Stefano Washington is a pleasant 83 year old female with an incidental finding of a nearly 16 cm mixed cystic and solid pelvic mass likely arising form RIGHT kidney per CT abdomen and pelvis on 03/09/2023. She denies any current symptoms. She is scheduled for the above mentioned procedure for further management. ACTIVE PROBLEM LIST Essential Hypertension Osteopenia Mixed Hyperlipidemia Acquired Hypothyroidism Gastroesophageal Reflux Disease Without Esophagitis Osteoarthritis of Multiple Joints Acute Right-Sided Low Back Pain With Right-Sided Sciatica Medicare Annual Wellness Visit, Subsequent Screening for Colon Cancer Chronic Pain of Right Knee Medication Management Iron Deficiency Anemia, Unspecified Pneumonia Due to Covid-19 Virus History of Pulmonary Embolism Hiatal Hernia Age-Related Physical Debility Aortic Stenosis, Moderate Advance Directive Discussed With Patient Sciatica, Right Side Falls, Subsequent Encounter Other Hydronephrosis Ovarian Mass, Right Red Blood Cell Antibody Positive Pre-Op Evaluation PAST MEDICAL HISTORY Diagnosis Date Acquired hypothyroidism 07/12/2015 Acute right-sided low back pain with right-sided sciatica 05/13/2016 Advance directive discussed with patient 06/26/2022 Discussed 06/2022, packets provided. Age-related physical debility 06/18/2021 Aortic stenosis, moderate 12/19/2021 12/19/2021 echo: small LV, EF 65%, moderate aortic stenosis with peak/mean gradient 20mmHg/12mmHg, DVI 0.40, grade 1 diastolic dysfunction. F/u annually or if symptomatic Chronic pain of right knee 10/29/2017 COVID-19 virus infection 05/07/2021 04/27/2021 Essential hypertension 10/20/2005 Gastroesophageal reflux disease without esophagitis 07/12/2015 hiatal hernia Hiatal hernia 06/18/2021 05/09/2021 CTA chest: Very large hiatal hernia containing entire stomach and other loops of bowel. History of pulmonary embolism 06/06/202105/2021 (post COVID) is to be on Eliquis till 11/07/21, stopped 12/12/2021 Iron deficiency anemia, unspecified Mixed hyperlipidemia 04/15/2011 Osteoarthritis of multiple joints 07/12/2015 Substance agreement signed 08/28/2016. On chronic Tramadol for control. Osteopenia 11/24/2006 Other hydronephrosis 03/10/2023 CT 03/2023: bilaterally Pulmonary embolism (HCC) 06/06/202105/2021 (post COVID) is to be on Eliquis till 11/07/2021 PAST SURGICAL HISTORY Procedure Laterality Date AMP F/TH 08/10 JT/PHALANX W/NEURECT W/DIR CLSR right 3rd finger at PIP joint COLONOSCOPY FLX DX W/COLLJ SPEC WHEN PFRMD 02/14/2009 repeat 10 yrs, sigmoid diverticulosis, internal hemorrhoids EGD TRANSORAL BIOPSY SINGLE/MULTIPLE 02/14/2009 hiatal hernia, esophagitis, gastritis FECAL OCCULT BLOOD TEST 03/01/2017 negative PAST SURGICAL HISTORY OF uterine polyp REMV CATARACT EXTRACAP,INSERT LENS Bilateral 07/2022 FAMILY HISTORY Adopted: Yes Problem Relation Age of Onset other (unknown) Other adopted Social History Tobacco Use Smoking status: Never Smokeless tobacco: Never Vaping Use Vaping Use: Never used Substance Use Topics Alcohol use: No Drug use: No ALLERGIES Allergen Reactions Macrobid [Nitrofura* GI Upset MEDICATIONS: Current Outpatient Medications Medication Sig Bisacodyl (DULCOLAX) 5 mg tab Take 1 tablet by mouth as directed. Take 2 tablets at 3pm the day before surgery polyethylene glycol 3350 (MIRALAX) 17 gram/dose powder Purchase one 238 gram bottle of Miralax Use as directed traMADol (ULTRAM) 50 mg tablet Take 1 tablet by mouth twice daily for 90 days. for arthritis pain. lovastatin 40 mg tablet Take 1 tablet by mouth daily at bedtime. For cholesterol. omeprazole (PRILOSEC) 20 mg capsule Take 1 capsule by mouth once daily. levothyroxine (SYNTHROID) 88 mcg tablet take one tablet by mouth wednesday through wednesday and none on wednesday. THERAPEUTIC MULTIVITAMIN TAB daily Calcium-Cholecalciferol (D3) 500-200 mg-unit ORAL Tab Take one(1) tablet two(2) times daily. NIFEdipine ER (PROCARDIA XL) 30 mg 24 hr tablet Take 1 tablet by mouth once daily. (Patient not taking: Reported on 04/06/2023) tiZANidine HCl (ZANAFLEX) 2 mg capsule Take 1 capsule by mouth twice daily as needed. Current Facility-Administered Medications Medication Dose Route Frequency perflutren lipid microspheres 1.3 mL in NaCl (PF) 0.9% 10 mL injection (DEFINITY) INTRAVENOUS DIRECTED PRN sodium chloride 0.9 % (flush) 10 mL (BD POSIFLUSH) 10 mL INTRAVENOUS DIRECTED PRN COVID VACCINATION STATUS: Fully vaccinated REVIEW OF SYSTEMS: General: No weight loss, malaise or fevers. Neuro: No history of TIA's, stroke, MONORAIL HELPER tumor, impaired sensorium, hemiplegia, paraplegia or quadraplegia. No neurological symptoms or problems. Respiratory: No history of current cough or dyspnea, or pneumonia in the past 6 weeks. No history of respiratory/pulmonary symptoms or problems. Cardiovascular: Positive for: HLD, Hypertension, on rx, PE on Eliquis 2 years ago during Covid infection, resolved with no reoccurrence, Negative for Recent FL, Angina, Arrhythmia, CAD, Chest Pain, CHF, PVD, Valvular Heart Disease GI: Positive for GERD, Giant hiatal hernia per recent CT abdomen/pelvis on rx, Negative for PUD, Heartburn, Nausea, Vomiting, Abdominal pain, Hepatitis, Liver disease, Inflammatory bowel disease, Colon cancer, Rectal cancer, Diverticulitis, History of polyps : Negative for dysuria, frequency, incontinence, decreased stream, and hematuria, Positive for mild bilateral hydronephrosis per CT abdomen/pelvis 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 Patient is postmenopausal. Endocrine: Hypothyroidism, on rx Hematology: No history of bleeding or clotting disorder. Pt is not taking anti- coagulation or platelet medications. No history of hematological symptoms or problems. Oncology: No history of CA metastasis, chemo within 30 days, or radiotherapy within 90 days. Has not lost 10% of body wt in 6 months. No history of oncological symptoms or problems. Psych: No history of psychiatric symptoms or problems. Musculoskeletal: Back pain and S/P back surgery 5 weeks ago. Skin: Negative for lesions, rash and itching. Objective PHYSICAL EXAM: Ht 5' 1.417 (1.56m) Wt 160 lb (72.6kg) BMI 29.82 kg/(m^2). VIDEO EXAM: (if completed, performed via video enabled technology) GENERAL: alert and appropriate, in no distress, well-hydrated, well nourished, and happy, smiling, interactive EYES: no injection, visual acuity is grossly normal, and wears glasses OROPHARYNX: moist mucus membranes RESPIRATORY: breathing non-labored CHEST: equal chest rise with normal respiratory effort HEART: Capillary refill <3 seconds in bilateral upper extremities. NEUROLOGIC: no obvious deficit Diagnostic tests reviewed for today's visit: Lab Value Units Date High Low HB 13.0 g/dL 03/22/2023 15.5 11.5 HCT 41.3 % 03/22/2023 46.0 36.0 WBC 8.23 k/uL 03/22/2023 11.00 3.70 PLT 264 k/uL 03/22/2023 400 150 NA 140 mmol/L 03/22/2023 144 136 K 4.6 mmol/L 03/22/2023 5.1 3.7 GLUC 106 mg/dL 03/22/2023 99 74 BUN 17 mg/dL 03/22/2023 21 7 CREAT 0.57 mg/dL 03/22/2023 0.96 0.58 PTSEC 10.6 sec 03/22/2023 13.0 9.7 INR 1.0 no uni* 03/22/2023 1.3 0.9 APTT 30.6 sec 03/22/2023 32.4 23.0 ALT 10 U/L 03/22/2023 38 7 AST 22 U/L 03/22/2023 35 13 TBILI 0.5 mg/dL 03/22/2023 1.3 0.2 TSH 2.720 mIU/L 01/15/2023 4.200 0.270 Lab Value Units Date High Low HCGQT No results within date range. UHCG No results within date range. HCG, BODY* No results within date range. Lab Value Units Date High Low ABORHD No results within date range. ABSCREEN No results within date range. Hemoglobin A1C (%) Date Value 02/13/2021 5.4 Most recent EKG Diagnosis: Sinus tachycardia (100 BPM) Right bundle branch block Cannot exclude Lateral infarct, undetermined age Abnormal ECG Confirmed by MATT MOREJON, [facility] ([id number]) on 03/22/2023 2:44:01 PM Most recent ECHO Impression CONCLUSIONS: - Technically difficult exam due to suboptimal positioning and body habitus. - Exam indication: Pre op clearance - The left ventricle is normal in size. Left ventricular systolic function is normal. EF = 59 5% (2D biplane) Indeterminate left ventricular diastolic dysfunction. - The right ventricle is normal in size. Right ventricular systolic function is normal. - Tricuspid aortic valve. There is moderately severe aortic valve stenosis caused by calcified valve. AV area is 1.00 cm (0.56 cm /m ) by continuity, VTI. The peak gradient is 31 mmHg, the mean gradient is 18 mmHg and the dimensionless valve index is 0.32. JUAN CARLOS falls within borderline severe . Mean gradient and peak velocity across the valve falls within moderate due to low stroke volume index (paradoxical low flow low gradient ) - Exam was compared with the prior echocardiographic exam performed on 12/19/2021. Aortic valve stenosis is borderline severe in this study. Pericardial effusion noted in the previous study is resolved now. Impression/Recommendations ASSESSMENT: Acquired hypothyroidism - stable on Synthroid. Essential hypertension - Stable, complaint on Procardia. Follows with PCP and cardiology. Last 3 Encounter BP Readings: Date: BP: 04/06/2023 128/76 03/22/2023 140/65 01/27/2023 110/70 01/15/2023 118/78 Gastroesophageal reflux disease without esophagitis - Positive for giant hiatal hernia per recent CT abdomen/pelvis. - On Omeprazole. History of pulmonary embolism - 05/2021 (post COVID). Was on Eliquis till 11/07/21, stopped 12/12/2021 - no reoccurrence since. Aortic stenosis, moderate - Per echo from 03/23/2023: There is moderately severe aortic valve stenosis caused by calcified valve. - Patient is stable and follows with cardiology. Cleared by cardiology to doris robles with surgery. See note under scanned document. METS: Walk indoors, such as around the house (1.75 METs) Do light work around the house, such as dusting or washing dishes (2.70 METs) Take care of self; that is eating, dressing, bathing, using the toilet (2.75 METs) Walk a block or two on level ground (2.75 METs) Climb a flight of stairs or walk up a hill (5.50 METs) Patient denies any chest pain or undue shortness of breath with the above physical activity. ANESTHESIA FINDINGS: Intubation History: No history of difficult intubation Significant Anesthesia Considerations: Difficult IV/Vein Access: small veins Airway Exam: General: Normal appearance Mallampati Score is CLASS I ULBT: Class I - Lower incisors can bite the upper lip above the dominick line Neck: Normal appearance and function, Distance from hyoid to mentum during neck extension is at least 3 finger breaths Mouth: Normal tongue size and Mouth opening greater than 2 finger breaths Dentition: Upper denture and Lower denture Airway History: No abnormal airway history STOP BANG Score: Criteria: Hypertension Age over 50 (83 year old) Score = 2 PLAN: This patient is optimally prepared for surgery. CONSULTS: Patient does not require consults for optimization at this time. Patient has been cleared by [facility] cardiology Desi Madison on 03/26/2023. Please see under scanned document. The Following Tests/Procedures Have Been Initiated: Type and screen, activated PTT, prothrombin time, CBC, confirm blood type, CMP and EKG ordered by surgical team. DOS PRBC ordered. + antibody screen. Planned Anesthetic: Per anesthesia choice Instructions Given to Patient: Patient given verbal instructions and voices comprehension and compliance. Copy sent electronically via My Chart, email, or mobile device. I spent more than 0-20 minutes [id number] with the patient and over half the time was devoted to counseling and/or coordination of care. This is a virtual visit. It required patient-provider interaction for the medical decision making as documented above. This document has been created with use of voice recognition technology. It may contain inaccuracies, misspellings, inaccurate syntax or word sense that escaped review. SIGNATURE: Ousmane Jones APRN.CNP, DNP PATIENT NAME: Stefano Washington DATE: April 06, 2023 TIME: 2:42 PM PAGER/CONTACT #: documented in this encounterGal[facility]08-16-[facility]23 Miscellaneous Notes* Telephone Encounter - Nanci Calloway - 03/24/2023 2:35 PM EDT Received CC in [facility] but patient will be receiving services elsewhere . documented in this encounterGalion [facility]08-16-2023 Miscellaneous Notes* Telephone Encounter - Annmarie Mendoza APRN.CNP - 03/24/2023 2:28 PM EDT Patient's daughter called to report they found a cardiology office closer to home that they would like to go to instead as it is much closer to home. Appointment arranged with Dr.Sharan Ashok Crane Algebraist [phone] on Monday 03/26 @ 145pm. Will follow up with patient/daughter after appt to determine when surgery can be scheduled. Annmarie Mendoza APRN.KACI documented in this encounterGalion Community Hospital08-14-2023 Miscellaneous Notes* Telephone Encounter - Tuyet Lorenz RN - 03/22/2023 3:42 PM EDT Spoke with daughter, and she voices understanding of pre op bowel prep. * Telephone Encounter - Tuyet Lorenz RN - 03/22/2023 3:03 PM EDT Per request of OLGA Mendoza per 03/22/23 staff message: Would you mind calling to do it again (just going over clear liquid day before surgery, bowel prep (miralax and dulcolox), NPO after midnight, and ok to take BP meds AM of surgery with small sip of water but nothing else. LVM for patient to return call to this office for review of above. Will await call/try again. documented in this encounterGalion [facility] Hospital08-14-2023 Miscellaneous Notes* Telephone Encounter - Tuyet Lorenz RN - 03/22/2023 3:42 PM EDT Spoke with daughter. Patient is scheduled for ECHO tomorrow , in [place]. * Telephone Encounter - Annmarie Mendoza APRN.CNP - 03/22/2023 3:10 PM EDT Please let patient/daughter know her EKG was showing some changes that require an echocardiogram before she can proceed with surgery. The order for the echo has been placed. Can you please help get this scheduled for tomorrow morning, since her surgery is on Wednesday at [facility]. Thanks documented in this encounterGalion Community Hospital08-14-2023 History of Present illness Narrative* Isamar Elizabeth RT(R) - 03/22/2023 1:00 PM EDT Radiology Service Progress Note PATIENT NAME: Stefano Washington DATE OF SERVICE: March 22, 2023 TIME: 1:22 PM PATIENT IDENTITY VERIFICATION COMPLETED USING TWO (2) IDENTIFIERS: Name and Date of confirmedby patient verbally and Name and Date of confirmed by identification band. FALL SCREENING: Has the patient had 2 falls in the last year or 1 fall with injury or currently using an Ambulatory Assistive Device (Walker, Cane, Wheelchair, Crutches, etc.)? Yes, Patient High Riskfor Falls What interventions were put in place to prevent falls during this visit? [place] Risk Wristband Applied, Instructed Patient to Call for Help if Needed, Offered Assistance with Transfers/Clothing, Instructed Patient to Remain Seated (Not on Exam Table) Until Exam, and Increased Observations by Caregivers PATIENT GENDER DATA: Female. status: : No status: NO. PATIENT RELEVANT IMPLANT DATA REVIEWED: Not Applicable RADIOLOGY DEPARTMENT: General X-ray: Exam(s) Completed: Chest X-Ray PERIPHERAL IV DATA: Not applicable SIGNED BY: RT Ari(R) March 22, 2023 1:22 PM documented in this encounterGalion Community Hospital08-14-2023 Miscellaneous Notes* [facility] - Belkis Milton - 03/22/2023 1:00 PM EDT RADIOLOGY SERVICE PROGRESS NOTE DATE OF SERVICE: March 22, 2023 TIME OF SERVICE: 12:34PM EVENT: ARRIVED IN WHEELCHAIR ADDITIONAL EVENT DETAILS: NA SIGNATURE: Belkis Milton PATIENT NAME: Stefano Washington DATE: March 22, 2023 TIME: 12:56 PM PAGER/CONTACT #: documented in this encounterGalion Community Hospital08-08-2023 Miscellaneous Notes* Telephone Encounter - Kaye Mchugh RN - 03/16/2023 5:06 PM EDT Called daughter and informed her of appt made. I was told that [facility] is not available for several months.I did schedule patient for [place] and daughter was agreeable because we could get her in with Dr Castillo in about 2 weeks. Phone number given to daughter if they wish to try to get into [facility] [phone] * Telephone Encounter - Ely Rico MD - 03/16/2023 4:18 PM EDT Consult order filed Ely Rico MD * Telephone Encounter - Kaye Mchugh RN - 03/16/2023 3:48 PM EDT I called patient at the request of Dr Rico. Dr Rico has reviewed the patient referral from Dr Encarnacion and believes patient should be seen by manager logistic/onc. Keyur tis agreeable. She asked me to call her daughter Stefano Quezada at [phone] to let her know. Patient's daughter is agreeable but states they do not want to go to [place]. They will go to [facility]. Please file referral and let us know who you recommend in [facility] documented in this encounterGalion Community Hospital08-01-2023 History of Present illness Narrative* Ioana Barger, RT(R) - 03/09/2023 11:20 AM EDT Radiology Service Progress Note DATE OF SERVICE: March 09, 2023 TIME: 1:26 PM PATIENT IDENTITY VERIFICATION COMPLETED USING TWO (2) STANDARD IDENTIFIERS: Name and Date of confirmed by patient verbally. FALL SCREENING: Has the patient had 2 falls in the last year or 1 fall with injury or currently using an Ambulatory Assistive Device (Walker, Cane, Wheelchair, Crutches, etc.)? No PATIENT GENDER DATA: Female. status: : No status: NO. PATIENT RELEVANT IMPLANT DATA REVIEWED: Yes ALLERGIES: Reviewed and unchanged CONTRAST ALLERGY: NO. EXAM: CT -CONTRAST INDUCED NEPHROPATHY RISK FACTORS: Patient age > 60 years CREATININE: Creatinine Date Value Ref Range Status 01/15/2023 0.64 0.58 - 0.96 mg/dL Final 12/12/2021 0.65 0.58 - 0.96 mg/dL Final 08/12/2021 0.57 (L) 0.58 - 0.96 mg/dL Final Estimated Glomerular Filtration Rate Date Value Ref Range Status 01/15/2023 88 >=60 mL/min/1.73m Final Comment: Estimated Glomerular Filtration Rate (eGFR) is calculated using the 2020 CKD-EPI creatinine equation. This equation utilizes serum creatinine, sex, and age as parameters. The creatinine assay has traceable calibration to isotope dilution- mass spectrometry. Refer to KDIGO guidelines for clinical interpretation. In patients with unstable renal function, e.g. those with acute kidney injury, the eGFRmay not accurately reflect actual GFR. eGFR- Date Value Ref Range Status 08/12/2021 >60 Final P.O.C.T. RESULTS: POC done: Yes, See Lab Tab March 09, 2023 TREATMENT: N/A PERIPHERAL IV DATA: Ambulatory: A peripheral IV was started in the Left antecubital site with a Angio cath: 22 gauge. RADIOLOGY DEPARTMENT: CT; Exam(s) Completed: Abdomen/Pelvis SIGNATURE: RT Fam(R) PATIENT NAME: Stefano Washington DATE: March 09, 2023 TIME: 1:26 PM documented in this encounterGalion Community Hospital08-01-2023 NoteRegency Hospital Company07-03-2023 Miscellaneous Notes* Telephone Encounter - Kristen Eugene PA-C - 02/08/2023 11:20 AM EDT The following approved medication requests have been transmitted electronically. Requested Prescriptions Signed Prescriptions Disp Refills lovastatin 40 mg tablet 90 tablet 1 Sig: Take 1 tablet by mouth daily at bedtime. For cholesterol. Authorizing Provider: KRISTEN EUGENE NIFEdipine ER (PROCARDIA XL) 30 mg 24 hr tablet 90 tablet 1 Sig: Take 1 tablet by mouth once daily. Authorizing Provider: KRISTEN EUGENE omeprazole (PRILOSEC) 20 mg capsule 90 capsule 1 Sig: Take 1 capsule by mouth once daily. Authorizing Provider: KRISTEN EUGENE tiZANidine HCl (ZANAFLEX) 2 mg capsule 15 capsule 0 Sig: Take 1 capsule by mouth twice daily as needed. Authorizing Provider: KRISTEN EUGENE PA-C * Telephone Encounter - Jeremiah Puckett LPN - 02/08/2023 10:59 AM EDT Last refill tizanidine 02/02/23 Qty: 15 with 0 refills Last refill omeprazole and lovastatin 06/26/22 Qty: 90 with 1 refill Last refill nifedipine 11/06/22 Qty: 90 with 1 refill VIRA 01/27/23 NOV 07/21/23 Jeremiah Puckett LPN * Telephone Encounter - Kaye Donahue - 02/08/2023 8:16 AM EDT Patient has been identified by name and date of : Yes Last office visit in this department: 01/27/2023 RX INSTRUCTIONS: Patient aware RX will be sent to pharmacy. No need to notify patient. Patient phones requesting refills as follows: Requested Prescriptions Pending Prescriptions Disp Refills lovastatin 40 mg tablet 90 tablet 1 Sig: Take 1 tablet by mouth daily at bedtime. For cholesterol. NIFEdipine ER (PROCARDIA XL) 30 mg 24 hr tablet 90 tablet 1 Sig: Take 1 tablet by mouth once daily. omeprazole (PRILOSEC) 20 mg capsule 90 capsule 1 Sig: Take 1 capsule by mouth once daily. tiZANidine HCl (ZANAFLEX) 2 mg capsule 15 capsule 0 Sig: Take 1 capsule by mouth three times daily as needed. Please review and advise. Kaye Donahue documented in this encounterGalion Community Hospital06-27-2023 NoteRegency Hospital Company06-27-2023 History of Present illness Narrative* America Camejo, PT - 02/02/2023 3:29 PM EDT Episode Visit Count: 1 Therapist That Will Accept/Oversee The Plan Of Care: America Camejo Start of Care Date: 02/02/23 Onset Date: 01/12/23 Plan of Care Certification Date: 02/02/23 Next Certification Due Date: 03/09/23 Patient Identified by Name and Date of : Yes RE[facility]AB[facility]ORTS THERAPY PHYSICAL THERAPY EVALUATION PLAN OF CARE: Assessment: Stefano Washington presents with diagnosis of sciatica of the right side and subsequentfalls that interferes with sleeping, bed mobility, weight bearing, walking, standing, rising from achair, walking in the house, walking in the community, stair negotiation, bending . She presents with impairments in ADL's, balance, gait, independence in exercise, joint mobility, overall function, patient reported outcome measures, posture, range of motion, strength, symptom management, and tissue tenderness. Patient opted to not complete the PROMIS (Patient Reported Outcome Measures Information System). Prognosis for therapy is Good due to: current objective clinical presentation, positive past response to therapy, good support system/ coping skills, acuteness of condition . She will benefit from skilled therapy services to meet the goals established for this plan of care as noted below. Classification Low Back Pain Subgroup Classification: Core stabilization subgroup: recommended visits 10. Core Stabilization Subgroup Classification based on: pain with transitional movements Goals for Episode of Care: created on 02/02/23 through 03/16/23 Patient will report no falls. Improve score on Timed Up and Go Test to <20 seconds with walker to reflect decreased fall risk. Improve score on 30 Second Chair Stand to 7 or more repetitions to reflect decreased fall risk. Patient will demonstrate independent and proper use of assisstive device to allow for improved walking quality and safety therefore reducing the risk of falls. Patient will decrease pain rating by 2 points to meet Minimal Clinical Important Difference for number pain scale rating. Perform transitions and community distance ambulation with decreased report of symptoms / pain. Patient will be able to corect postrual deviations independently in order to improve postural alignment of trunk during transfers, ambulation, sitting, standing, and functional activities, allow for normal mechanics, and to decrease current pain . Patient Goals: amb community distances with rollator walker without limitation due to low back or RLE pain Planned Interventions, Frequency, and Duration: Current Frequency: 2x/week Duration: 6 weeks Total Number of Visits Planned: 12 Planned Treatment Interventions: Therapeutic exercise (99331), Neuromuscular re- education (12163), Therapeutic activities (63229), Self-[place] [facility] management (23197), Patient/Family/Caregiver Education, Gait Training (16938) PLAN FOR NEXT VISIT: Pt. instructed to bring her FWW next visit. Patient demonstrates good understanding of plan of care and treatment. The above goals and plan of care were discussed and agreed upon by patient/family. SUBJECTIVE: Stefano Washington is a 82 year old female seen today for for fall when attempting to get clothes out of the dryer about 3 weeks ago. Pt. had to be assisted by her children to get up. Sheinitially didn't think it was bad, but she began to have worse right side low back and right leg pain/numbness. X-rays per chart indicate compression fx T11 vertebral body. Patient Goals: amb community distances with rollator walker without limitation due to low back or RLE pain Functional Limitations: sleeping, bed mobility, weight bearing, walking, standing, rising from a chair, walking in the house, walking in the community, stair negotiation, bending Prior Level of Function: Independent without limitations Relevant History Past Relevant Medical Conditions: Thyroid Disease, Hypertension, Falls Right or Left Handed: Right Hobbies / Interests: gardening, has outdoor cats as pets Home Environment Patient Lives With: Self/Alone (family lives next door) Assistance Available: Part-Time (DTR cleans the home. Pt. otherwise indep with ADLs) Equipment Owned: Rollator (pt. has been sponge bathing) Transportation: Travels as a passenger Intake Information: Prescription present Previous Treatment: Heat , Ice , NSAIDs , Topicals Falls Interview: Two or more falls in the last year Falls Intervention: Instructed patient on safety and use of assistive device and awareness in regards to falls prevention., More thorough falls assessment to be performed Red Flags Vertebral Fracture Red Flags: Female, Age >70 Vertebral Fracture Clinical Reasoning: Proceed with caution due to the above (1- 2) risk factors Abdominal Aortic Aneurysm Red Flags: Age >60 Abdominal Aortic Aneurysm Clinical Reasoning: Proceed with caution Cancer Red Flags: Age >50 or <20 Cancer Clinical Reasoning: Proceed with caution Infection Clinical Reasoning: No identified risk factors. Cauda Equina Syndrome Clinical Reasoning: No identified risk factors. Red Flags - Cervical Cancer Red Flags: Age >50 or <20 Cancer Clinical Reasoning: Proceed with caution Infection Clinical Reasoning: No identified risk factors. Spine History Symptoms Location at Onset: Back Symptoms Since Onset: Worsening Pain is Worse Always: On the Move Pain is Better Sometimes: Lying Sleep Affected by Pain: Pain keeps from falling asleep, Pain awakens Pain: Pain Pain Level: 8 Pain Location: Low Back/Lumbar Spine - Right Description: Aching Frequency: Continuous Additional Pain Information : Location 2 Pain Level 2: 8 Pain Location 2: Leg - Right Description 2: Numbness Frequency 2: Continuous Post Treatment Pain Post Treatment Pain Level: Better Post Treatment Pain Location: Low Back/Lumbar Spine - Right Post Treatment Pain Description: Aching Post Treatment Pain Location 2: Leg - Right Post Treatment Pain Description 2: Numbness PROMIS Scales T-scores: mean of general population = 50. 5 points is clinically meaningfully difference Percentiles provide an indication of how the patient's score ranks in relation to the general population. Higher percentile rankings indicate better function/quality of life. 50th percentile is the average of the general population and indicates half of respondents had a worse score. OBJECTIVE MEASURES WITH LEVEL OF FUNCTION: Posture / Alignment Posture: Forward head, Increased thoracic kyphosis, Elevated shoulder -left, Elevated shoulder - right, Decreased lumbar lordosis Sitting Posture: Slump, Increased thoracic kyphosis Spine Observations R Thoracic Spine Palpation Tenderness: Spinous Process, Comments, Paraspinals L Thoracic Spine Palpation Tenderness: Spinous Process, Paraspinals Sensation - Lumbar Sensation: Grossly Intact Lumbar Spine AROM Lumbar Spine AROM Comments: did not test AROM due to severe pain with sit > stand transition. Static Testing - Lumbar Sit Slouched: better Sit Erect: worse Stand Erect: worse Gait Gait: (will be assesssed next visit) Functional Performance Test Results 30 Second Chair Stand Test: 1 reps Education: Education Learning Preferences: Demonstration, Explanation, Printed Materials, Performance Barriers: Acuity of Illness Learning/educational needs: Safety, Home exercise program, Plan of Care, Posture, Changes in Plan of Care, Gait Training Education Provided: Yes, see treatment interventions for education provided Education Provided To: Patient Education Mode/Type: Demonstration, Explanation/Discussion, Literature/Printed Materials, Performance Response to Education/Teach Back: Requires Review/Additional Education TREATMENT: PT Treatment Interventions: Therapeutic Exercise, Therapeutic Activity, Self- Assisted Management Evaluation Therapeutic Exercise: 1: *seated scapular retraction 2x15, 3x/day 2: *seated TA activation 2-3 sets of 10, 3x/day Skilled Intervention: Patient was educated in proper exercise technique and purpose for exercises. Skilled judgment was provided in selection of appropriate interventions. Provided written instruction for home exercise program to facilitate proper performance and compliance. Correct performance of therapeutic exercises was facilitated with verbal, visual, and tactile cuing. Educated patient on rationale for performing exercises in regards to decreasing fatigue , increase ease of ADL, and ROM and function . Patient education as noted. Therapeutic Activity: 1: 2x, with PT CGAx1 with BUE support on w/c arm rests sit > stand 2: 2x, with PT modAx1 with BUE support on w/c arm rests stand> sit, max cues to return to sit with controlled movement rather than dropping into chair. Skilled Intervention: Proper patient guarding to prevent falls/increase patient safety with contactguard assistance to assist patient while performing transitions. Educated on proper/safe technique for activities performed today. Moderate verbal cues for maintaining neutral spine alignment. Activity progression based on professional judgment. Assisted proper completion of task with verbal, visual, and tactile cueing and correction of abnormal movement patterns. Reviewed and educated patient on additions/changes for home program as noted above with an (*). Self-Assisted Management: 1: *instructed pt. to bring her rollator with her next visit 2: *discussed postural awareness with sitting as well as standing 3: *encouraged continued walking and transitional movements, but reminded pt. it is ok to rest morefrequently to prevent symptoms from increasing, pt. may lay down intermittently throughout the day for 10-15 minutes to allow her back to rest and reduce symptoms Skilled Intervention: Skilled judgment in the selection of proper modification for activity of daily living/home management based on clinical presentation, deficits, and needs. Physical assistance was provided during education for modifications and patient safety. Educated the patient regarding recommendations and provided written instruction to facilitate compliance. Reviewed patient specific diagnosis in relation to activities of daily living/home management. Activity progression based on professional judgement. Moderate verbal cues for maintaining neutral spine alignment. Provided written instruction for home program to facilitate proper performance and compliance. Correct performance of home program was facilitated with visual and tactile cueing. Billing * Evaluation Low Complexity: 1 Unit Therapeutic Exercise Treatment Minutes: 10 Therapeutic Activity Treatment Minutes: 5 Self-Care/Home Management Treatment Minutes: 10 Total Treatment Time Minutes (timed/untimed): 45 America Camejo PT documented in this encounterGalion [facility]06-27-2023 Miscellaneous Notes* Telephone Encounter - Matphilippe David Puckett LPN - 02/02/2023 11:35 AM EDT Spoke with pt's daughter and advised her of Kristen's message. She verbalizes understanding. She isrequesting to have referral faxed to [facility]. She is going to check with Dr Cohn and Dr Monroe's office to see how far out they are scheduling. She will contact office to let us know where to send referral. Jeremiah Puckett LPN * Addendum Note - Kristen Eugene PA-C - 02/02/2023 11:11 AM EDTAddended by: KRISTEN CLINE on: 02/02/2023 11:11 AM Modules accepted: Orders * Telephone Encounter - Kristen Eugene PA-C - 02/02/2023 11:03 AM EDT Noted. They are welcomed to get a 2nd opinion from [facility]. We do have pain management in [place] from [facility]. Dr. Cohn and dr. hWite are private practice options in [place] as well if they would like to goto one of those instead. I have placed consult to ortho that way they have it if they decide to go there. If they would like to go outside of [facility] for pain management, consult can be faxed per their preference. Kristen Eugene PA-C * Telephone Encounter - YOSEPH Rowell - 02/02/2023 10:48 AM EDT TC back to patients daughter. Daughter states that she doesn't understand why pain medication is anissue. This staff explained that patient is prescribed Tramadol and RR refilled the muscle relaxer.Daughter states patient takes the Tramadol daily for arthritis and that it would not help with the back pain. This staff tried to explain that it is still used to relieve pain and that patient can use tylenol for break through. Also explained that the muscle relaxer was refilled to help with this as well. This staff inquired if appointment has been made for pain management and daughter stated no,as they were unaware that appointment would be all the way in [place] and that is too far for patient. Daughter said she is going to take patient to [facility] for her back instead. This staff tried to explain that Ortho and Pain are different specialties. Daughter states they helped with my back so I don't get what the problem is. Daughter then stated she will discuss with patient whenshe picks her up for PT today and will call back in to office for Ortho referral if patient decidesto go that route. YOSEPH Rowell * Addendum Note - Kristen Eugene PA-C - 02/02/2023 10:25 AM EDTAddended by: KRISTEN CLINE on: 02/02/2023 10:25 AM Modules accepted: Orders * Telephone Encounter - Kristen Eugene PA-C - 02/02/2023 10:21 AM EDT Patient to continue tramadol as prescribe. No other pain meds will be given. She can use tylenol for any break through pain. I will refill the muscle relaxer. * Addendum Note - Olivier Simms RN - 02/02/2023 10:14 AM EDTAddended by: OLIVIER SIMMS on: 02/02/2023 10:14 AM Modules accepted: Orders * Telephone Encounter - Olivier Simms RN - 02/02/2023 10:08 AM EDT Pt's daughter returning call. She had cancelled pt's PT appt for today because she thought the pt was not supposed to go. Daughter asking for something for pain for her mom. States she is in a lot ofpain and can something be ordered til she can get in to see pain mgt. Pt was given 10 Vicodin when she was in the ER and that did help the pain. Daughter also states needs refills on her Tizanidine. Pt is also finishing her Prednisone. States pain is some better and the Tizanidine helps. Transferred to scheduling to see if she can meet the PT appt for this afternoon (saw that it was rescheduled for today at 340 pm) and also schedule the pain mgt consult. Please call daughter back with answer on pain medicine. * Telephone Encounter - Jeremiah Puckett LPN - 02/02/2023 9:45 AM EDT Advised pt of Kristen's message. Also left message for daughterStefano to contact office. Please see Kristen's message below. Daughter will need transferred to schedule with pain management as well.Jeremiah Puckett LPN * Addendum Note - Kristen Eugene PA-C - 02/02/2023 9:25 AM EDTAddended by: KRISTEN CLINE on: 02/02/2023 09:25 AM Modules accepted: Orders * Telephone Encounter - Kristen Eugene PA-C - 02/02/2023 9:23 AM EDT I recommend she still does PT. She was complaining of low back pain with sciatica like symptoms. Physical Therapy will help address this. And i'm unlikely to get a soon enough appt with pain management. It may be booked out a few weeks. * Addendum Note - Sherlyn Bhandari RN - 02/02/2023 9:19 AM EDTAddended by: SHERLYN BHANDARI on: 02/02/2023 09:19 AM Modules accepted: Orders * Telephone Encounter - Sherlyn Bhandari RN - 02/02/2023 9:16 AM EDT Pt's daughter Stefano calling and states patient does not want to go to Physical Therapy and is interested in Pain Mgmt referral at this time. Daughter asking PCP to place referral and then call her back to assist with scheduling. Call daughter Stefano at [phone]. Thank you. * Telephone Encounter - Jeremiah Puckett LPN - 02/02/2023 9:00 AM EDT Patient notified of results and provider's instructions. Patient verbalizes understanding. Pt is just going to do PT at this time and will contact office if she wants referral to pain management. Jeremiah Puckett LPN * Telephone Encounter - Kristen Eugene PA-C - 02/02/2023 8:24 AM EDT Let patient know that xray shows a T11 compression fracture. This is a little higher than where shehas told me she is having the pain. We typically treat these conservatively and monitor progress with PT. I could place a consult to pain management if patient wishes for additional treatment options. Kristen Eugene PA-C documented in this encounterGalion Community Hospital06-21-2023 NoteReg[facility]-2023 NoteRegency Hospital Company06-21-2023 History of Present illness Narrative* Kristen Eugene PA-C - 01/27/2023 10:31 AM EDT Chief Complaint Patient presents with: Back Pain HPI Stefano Washington is a 82 year old female who presents here today for Above Complaints.. Patient fell beginning of January. Went to ER and had xrays which were negative. She initially was thinking she was improved. However she now feels like pain is worse. Pain and n/t radiating down her right leg now. Making it hard for her to do ADLs. Past medical history, appointments, medications, allergies reviewed. Previous Medical History PAST MEDICAL HISTORY Diagnosis Date Acquired hypothyroidism 07/12/2015 Acute right-sided low back pain with right-sided sciatica 05/13/2016 Advance directive discussed with patient 06/26/2022 Discussed 06/2022, packets provided. Age-related physical debility 06/18/2021 Aortic stenosis, moderate 12/19/2021 12/19/2021 echo: small LV, EF 65%, moderate aortic stenosis with peak/mean gradient 20mmHg/12mmHg, DVI 0.40, grade 1 diastolic dysfunction. F/u annually or if symptomatic Chronic pain of right knee 10/29/2017 COVID-19 virus infection 05/07/2021 04/27/2021 Essential hypertension 10/20/2005 Gastroesophageal reflux disease without esophagitis 07/12/2015 hiatal hernia Hiatal hernia 06/18/2021 05/09/2021 CTA chest: Very large hiatal hernia containing entire stomach and other loops of bowel. History of pulmonary embolism 06/06/202105/2021 (post COVID) is to be on Eliquis till 11/07/21, stopped 12/12/2021 Iron deficiency anemia, unspecified Mixed hyperlipidemia 04/15/2011 Osteoarthritis of multiple joints 07/12/2015 Substance agreement signed 08/28/2016. On chronic Tramadol for control. Osteopenia 11/24/2006 Pulmonary embolism (HCC) 06/06/202105/2021 (post COVID) is to be on Eliquis till 11/07/2021 Previous Surgical History PAST SURGICAL HISTORY Procedure Laterality Date AMP /08/10 JT/PHALANX W/NEURECT W/DIR CLSR right 3rd finger at PIP joint COLONOSCOPY FLX DX W/COLLJ SPEC WHEN PFRMD 02/14/2009 repeat 10 yrs, sigmoid diverticulosis, internal hemorrhoids EGD TRANSORAL BIOPSY SINGLE/MULTIPLE 02/14/2009 hiatal hernia, esophagitis, gastritis FECAL OCCULT BLOOD TEST 03/01/2017 negative PAST SURGICAL HISTORY OF uterine polyp REMV CATARACT EXTRACAP,INSERT LENS Bilateral 07/2022 Family History FAMILY HISTORY Adopted: Yes Problem Relation Age of Onset other (unknown) Other adopted Patient Allergies ALLERGIES Allergen Reactions Macrobid [Nitrofura* GI Upset Current Medications Current Outpatient Medications on File Prior to Visit Medication Sig sulfamethoxazole-trimethoprim (BACTRIM DS) 800-160 mg per tablet Take 1 tablet by mouth twice dailyfor 7 days. HYDROcodone-acetaminophen (NORCO) 5-325 mg per tablet baclofen (LIORESAL) 10 mg tablet Take 1 tablet by mouth three times daily as needed (muscle spasms). traMADol (ULTRAM) 50 mg tablet Take 1 tablet by mouth twice daily for 90 days. for arthritis pain. Do not start before December 09, 2022. NIFEdipine ER (PROCARDIA XL) 30 mg 24 hr tablet Take 1 tablet by mouth once daily. levothyroxine (SYNTHROID) 88 mcg tablet take one tablet by mouth wednesday through wednesday and none on wednesday. lovastatin 40 mg tablet Take 1 tablet by mouth daily at bedtime. For cholesterol. omeprazole (PRILOSEC) 20 mg capsule Take 1 capsule by mouth once daily. THERAPEUTIC MULTIVITAMIN TAB daily Calcium-Cholecalciferol (D3) 500-200 mg-unit ORAL Tab Take one(1) tablet two(2) times daily. ELIQUIS 5 mg tab(s) Take 1 tablet by mouth twice daily. (Patient not taking: Reported on 06/26/2022) No current facility-administered medications on file prior to visit. Social History Social History Tobacco Use Smoking status: Never Smokeless tobacco: Never Vaping Use Vaping Use: Never used Substance Use Topics Alcohol use: No Drug use: No Review of Symptoms REVIEW OF SYSTEMS See hpi EXAM: BP 110/70 (BP Site: Right Arm, BP Position: Sitting, BP Cuff Size: Large Adult) Pulse 110 Temp 36.8 C (98.3 F) Resp 16 General Appearance: Well appearing, alert, in no acute distress, well-hydrated, well nourished.. wheel chair Musculoskeletal: +pain to palp of Paraspinous muscles. +SI joint pain on right. SLR + for pain and n/t. NVI. Health Maintenance List DTAP,TDAP,TD(1 - Tdap) due on 06/26/2023 SHINGRIX VACCINE(2 of 3) due on 06/26/2023 DIABETES SCREEN due on 01/15/2026 BONE DENSITY Completed INFLUENZA Completed ADVANCE DIRECTIVE DISCUSSION Completed DEPRESSION ASSESSMENT Completed COVID-19 VACCINE Completed PNEUMOCOCCAL: 65+ Completed Data reviewed ASSESSMENT/PLAN: 1. Sciatica, right side - ICD9: 724.3, ICD10: M54.31 (primary diagnosis) Will do another pred taper. Muscle relaxer changed. Patient cautioned on potential SE Start Physical Therapy. Follow up prn. - CONSULT TO PHYSICAL THERAPY - XR LUMBAR GENERAL 3V AP/LAT/L5-S1 2. Fall, subsequent encounter - ICD9: V58.89, E888.9, ICD10: W19.XXXD As above - CONSULT TO PHYSICAL THERAPY - XR LUMBAR GENERAL 3V AP/LAT/L5-S1 Kristen Eugene PA-C documented in this encounterGalion Community Hospital06-19-2023 Miscellaneous Notes* Telephone Encounter - Jeremiah Puckett LPN - 01/25/2023 1:22 PM EDT Pt's daughter advised of same. Jeremiah Puckett LPN * Addendum Note - Kristen Eugene PA-C - 01/25/2023 1:07 PM EDTAddended by: KRISTEN CLINE on: 01/25/2023 01:07 PM Modules accepted: Orders * Telephone Encounter - Kristen Eugene PA-C - 01/25/2023 1:07 PM EDT Order placed. * Telephone Encounter - Vijaya Bishop RN - 01/25/2023 12:26 PM EDT Patient's daughter, Stefano Quezada calling to verify lab order in [facility] so granddaughter can pick pack worker urine specimen supplies. Please file order and contact daughter when done. # [phone]. Vijaya Bishop RN * Telephone Encounter - Jeremiah Puckett LPN - 01/25/2023 12:15 PM EDT Pt notified of Mick'e message and instructions. Pt verbalizes understanding. Pt will have granddaughter get urine kit and drop off specimen. Jeremiah Puckett LPN * Telephone Encounter - Kristen Eugene PA-C - 01/25/2023 11:47 AM EDT Will get urine culture. Order placed. Patient saw me for routine check up. We did not do a full evaluation on back. She could just try some OTC topical options. I don't have a specific recommendation. If not improving though, she will need to RTO so we can further eval her symptoms and progress. * Telephone Encounter - Jeremiah Puckett LPN - 01/25/2023 11:34 AM EDT Reviewed result with pt. She thinks her UTI sx have improved. Stattes she is still peeing a lot andurine is still dark colored. Pt states she is still having lower back pain. States it is not a 12 like it was but rates pain as an 8 on pain scale. States it is extremely painful when walking. Wants to know if there is anything you can give her for the pain, even a salve she can rub on her back. Please advise. Jeremiah Redding * Telephone Encounter - Kristen Eugene PA-C - 01/25/2023 11:12 AM EDT Let patient know that all her labs are stable. I saw that Dr. Encarnacion sent in atb for UTI symptoms last week while I was out. Have those symptoms improved? documented in this encounterGalion Community Hospital06-15-2023 Miscellaneous Notes* Telephone Encounter - Angeline Robbins RN - 01/21/2023 9:39 AM EDT Patient's Grand Daughter called and notified that prescription has been sent to pharmacy. Angeline Robbins RN * Telephone Encounter - Carl Encarnacion MD - 01/21/2023 8:57 AM EDT Let grand daughter know antibiotic sent to [facility]. The following approved medication requests have been transmitted electronically. Requested Prescriptions Signed Prescriptions Disp Refills sulfamethoxazole-trimethoprim (BACTRIM DS) 800-160 mg per tablet 14 tablet 0 Sig: Take 1 tablet by mouth twice daily for 7 days. Authorizing Provider: CARL ENCARNACION MD * Telephone Encounter - Angeline Robbins RN - 01/21/2023 8:26 AM EDT Patient's grand daughter calling about patient's urine results. Patient has been having urinary frequency and incontinence last night which is not normal for patient. Lab gave patient's family a urine kit, just in case provider wanted to order a urine culture for patient. Per grand daughter patientdoes not tolerate Macrobid well. It causes nausea and vomiting. Please review and advise, Angeline Robbins RN documented in this encounterGalion Community Hospital06-06-2023 History of Present illness Narrative* Barrera Daley APRN.KACI - 01/12/2023 10:20 AM EDT Patient triaged at [facility]. Here today with 12/10 mid back pain after fall few days ago. Patient in wheel chair, not able to walk well d/t pain. I will refer to ER, concerns with age and severity of pain. documented in this encounterGalion Community Hospital03-31-2023 Miscellaneous Notes* Telephone Encounter - Judi Julio Temo Pss - 11/06/2022 9:18 AM EDT Pharmacy verified in [facility] Patient has been identified by name and date of : Yes Patient aware RX will be sent to pharmacy. No need to notify patient. Daughter phones for refill(s): Requested Prescriptions Pending Prescriptions Disp Refills NIFEdipine ER (PROCARDIA XL) 30 mg 24 hr tablet 90 tablet 1 Sig: Take 1 tablet by mouth once daily. levothyroxine (SYNTHROID) 88 mcg tablet 90 tablet 1 Sig: take one tablet by mouth wednesday through wednesday and none on wednesday. Date of last office visit : 07/19/22 Labs-06/26/22 Date of next office visit : 12/25/2022 Last 2 Encounter Wt Readings: Date: Wt: 07/19/2022 75.8 kg (167 lb) 06/26/2022 76.7 kg (169 lb) Please advise. Judi Julio Temo Pss documented in this encounterGalion Community Hospital02-02-2023 Miscellaneous Notes* Telephone Encounter - Carl Encarnacion MD - 09/10/2022 1:12 PM EST The following approved medication requests have been transmitted electronically. Requested Prescriptions Signed Prescriptions Disp Refills traMADol (ULTRAM) 50 mg tablet 180 tablet 0 Sig: Take 1 tablet by mouth twice daily for 90 days. for arthritis pain. Authorizing Provider: CARL ENCARNACION MD PDMP website checked and validated. All prescriptions have been APPROPRIATELY filled. No suspiciousactivity was identified. 09/10/2022 by Carl Encarnacion MD * Telephone Encounter - Stephanie Duarte Pss - 09/10/2022 12:53 PM EST Patient has been identified by name and date of : Yes Requested Prescriptions Pending Prescriptions Disp Refills traMADol (ULTRAM) 50 mg tablet 180 tablet 2 Sig: Take 1 tablet by mouth twice daily for 90 days. for arthritis pain. RX INSTRUCTIONS: Patient aware RX will be sent to pharmacy. No need to notify patient. Stephanie Duarte Pss documented in this encounterGalion Community Hospital12-12-2022 Miscellaneous Notes* Telephone Encounter - Amanda Kendrick - 07/20/2022 10:38 AM EST Patient given results and verbalized understanding of instructions given. Amanda Kendrick * Telephone Encounter - Barrera Daley APRN.CNP - 07/20/2022 9:55 AM EST Please notify negative chest xray for pneumonia. Large hiatal hernia noted, no action needed. May stop atb per note. F/u as discussed during visit. documented in this encounterGalion Community Hospital12-12-2022 History of Present illness Narrative* Monisha Donahue RT(Nicole) - 07/20/2022 8:10 AM EST Radiology Service Progress Note PATIENT NAME: Stefano Washington DATE OF SERVICE: July 20, 2022 TIME: 8:10 AM PATIENT IDENTITY VERIFICATION COMPLETED USING TWO (2) IDENTIFIERS: Name and Date of confirmedby patient verbally. FALL SCREENING: Has the patient had 2 falls in the last year or 1 fall with injury or currently using an Ambulatory Assistive Device (Walker, Cane, Wheelchair, Crutches, etc.)? No PATIENT GENDER DATA: Female. status: : No status: NO. PATIENT RELEVANT IMPLANT DATA REVIEWED: Yes RADIOLOGY DEPARTMENT: General X-ray: Exam(s) Completed: Chest X-Ray PERIPHERAL IV DATA: Not applicable SIGNED BY: RT Anmol(Nicole) July 20, 2022 8:10 AM documented in this encounterGalion Community Hospital12-11-2022 History of Present illness Narrative* Isabel Older, POWDER ROOM ATTENDANT.PARATRANSIT DRIVER - 07/19/2022 11:47 AM EST CC: Patient presents with: Head Congestion: cough,drainage x 2 weeks HPI: Stefano Washington is a 82 year old female who presents to the office with complaint of respiratorysymptoms for 2 weeks. Symptoms are staying the same. Associated symptoms includes nasal congestion, rhinorrhea, facial pain/pressure, post nasal drip, cough, and fatigue. Denies fever, wheezing, and dyspnea. Treatments tried include Guaifenesin/Mucinex with temporary relief of symptoms. Sick contacts: yes, no one with COVID . History of asthma, frequent episodes of bronchitis, chronic bronchitis, bronchiectasis or COPD: No Smoker: No The ROS is otherwise negative. The patient's pmh, medications, allergies, and past visits are reviewed. PHYSICAL EXAM: BP 140/82 Pulse 118 Temp 36.7 C (98 F) Resp 20 Wt 75.8 kg (167 lb) SpO2 95% BMI 31.13 kg/m General appearance: tired/ill appearing, alert, cooperative, pleasant, in no acute distress Head: Normocephalic Eyes: conjunctiva pink and moist, no icterus, sclera white, non-injected Ears: Right ear: External ear/canal- Normal, TM - clear with good landmarks. Left ear: External ear/canal- Normal, TM - clear with good landmarks Nose: clear, no sinus tenderness. Oropharynx:No erythema, exudates or tonsillar hypertrophy. Neck:supple and no adenopathy Heart: Negative. RRR without obvious murmur, gallop, or rubs. No ectopy. Lungs: diminished breath sounds and wheezing right lower lobe. Otherwise good air exchange and no rhonchi or rales ASSESSMENT/PLAN: 1. Acute cough - ICD9: 786.2, ICD10: R05.1 (primary diagnosis) Symptoms and exam findings concerning for pneumonia. Imaging not available today - XR CHEST 2V FRONTAL/LAT, patient will come in tomorrow and have done - will start treatment with Doxycycline and Augmentin, can be discontinued if chest x-ray negative Follow-up if symptoms don't improve in 3 to 5 days 2. Wheezing - ICD9: 786.07, ICD10: R06.2 As above - XR CHEST 2V FRONTAL/LAT Prescription instructions reviewed with patient as applicable. Potential red flag symptoms discussed with the patient. Reviewed appropriate action plan to take if red flag symptoms occur. Patient agreeable to treatment plan. Isabel Roca APRN.KACI documented in this encounterGalion Community Hospital11-21-2022 Miscellaneous Notes* Telephone Encounter - Jeremiah Puckett LPN - 06/29/2022 1:03 PM EST Patient notified of results and provider's instructions. Patient verbalizes understanding. Jeremiah Puckett LPN * Telephone Encounter - Carl Encarnacion MD - 06/29/2022 12:45 PM EST Let patient know thyroid lab was ok. Lipid panel showed Trigs elevated at 235 (goal<150), HDL very good at 64 and LDL ok at 127. Advise just trying to reduce fat in diet. documented in this encounterGalion Community Hospital11-18-2022 Instructions* Patient Instructions* Carl Encarnacion MD - 06/26/2022 11:03 AM EST Consider getting the shingrix vaccine for the prevention of shingles from a local pharmacy documented in this encounterGalion Community Hospital11-18-2022 History of Present illness Narrative* Carl Encarnacion MD - 06/26/2022 10:40 AM EST Chief Complaint Patient presents with: F/U 6 months HPI Stefano Washington is a 82 year old female who presents here today for 6 month follow up. Patient with hx of HTN, HLP, GERD, hypothyroidism, anemia, and those as reviewed. Patient was in the hospital for COVID 05/2021 and developed a PE. Was placed on Eliquis and needed to be on it till 11/07/2021. She was taken off her BP meds while in the hospital due to BP being to low. Patient has been feeling better. Has been walking with a walker. The Tramadol continues to control her OA pain and improve her quality of life. No issues with the medication. Past medical history, appointments, medications, allergies reviewed. Previous Medical History PAST MEDICAL HISTORY Diagnosis Date Acquired hypothyroidism 07/12/2015 Acute right-sided low back pain with right-sided sciatica 05/13/2016 Age-related physical debility 06/18/2021 Chronic pain of right knee 10/29/2017 COVID-19 virus infection 05/07/2021 04/27/2021 Essential hypertension 10/20/2005 Gastroesophageal reflux disease without esophagitis 07/12/2015 hiatal hernia Hiatal hernia 06/18/2021 05/09/2021 CTA chest: Very large hiatal hernia containing entire stomach and other loops of bowel. History of pulmonary embolism 06/06/202105/2021 (post COVID) is to be on Eliquis till 11/07/21, stopped 12/12/2021 Iron deficiency anemia, unspecified Mixed hyperlipidemia 04/15/2011 Osteoarthritis of multiple joints 07/12/2015 Substance agreement signed 08/28/2016. On chronic Tramadol for control. Osteopenia 11/24/2006 Pulmonary embolism (HCC) 06/06/202105/2021 (post COVID) is to be on Eliquis till 11/07/2021 Previous Surgical History PAST SURGICAL HISTORY Procedure Laterality Date AMP F/TH 08/10 JT/PHALANX W/NEURECT W/DIR CLSR right 3rd finger at PIP joint COLONOSCOPY FLX DX W/COLLJ SPEC WHEN PFRMD 02/14/09 repeat 10 yrs, sigmoid diverticulosis, internal hemorrhoids EGD TRANSORAL BIOPSY SINGLE/MULTIPLE 02/14/09 hiatal hernia, esophagitis, gastritis FECAL OCCULT BLOOD TEST 03/01/2017 negative PAST SURGICAL HISTORY OF uterine polyp Family History FAMILY HISTORY Adopted: Yes Problem Relation Age of Onset other (unknown) Other adopted Patient Allergies ALLERGIES No Known Allergies Current Medications Current Outpatient Medications on File Prior to Visit Medication Sig NIFEdipine ER (PROCARDIA XL) 30 mg 24 hr tablet Take 1 tablet by mouth once daily. levothyroxine (SYNTHROID) 88 mcg tablet take one tablet by mouth wednesday through wednesday and none on wednesday. traMADol (ULTRAM) 50 mg tablet Take 1 tablet by mouth twice daily for 90 days. for arthritis pain. lovastatin 40 mg tablet Take 1 tablet by mouth daily at bedtime. For cholesterol. omeprazole (PRILOSEC) 20 mg capsule Take 1 capsule by mouth once daily. ELIQUIS 5 mg tab(s) Take 1 tablet by mouth twice daily. nabumetone (RELAFEN) 500 mg tablet Take 1 tablet by mouth twice daily as needed. THERAPEUTIC MULTIVITAMIN TAB daily Calcium-Cholecalciferol (D3) 500-200 mg-unit ORAL Tab Take one(1) tablet two(2) times daily. Current Facility-Administered Medications on File Prior to Visit Medication perflutren lipid microspheres 1.3 mL in NaCl (PF) 0.9% 10 mL injection (DEFINITY) sodium chloride 0.9 % (flush) 10 mL (BD POSIFLUSH) Social History Social History Tobacco Use Smoking status: Never Smokeless tobacco: Never Substance Use Topics Alcohol use: No Drug use: No Review of Symptoms REVIEW OF SYSTEMS GENERAL: No weight loss, malaise or fevers NECK: Negative for lumps, goiter, pain and significant neck swelling RESPIRATORY: Negative for cough, hemoptysis, wheezing, COPD, dyspnea or shortness of breath CARDIOVASCULAR: Negative for chest pain, increased leg swelling, hypertension, CHF or palpitations.No orthopnea GI: No nausea, vomiting, or diarrhea and No heartburn or reflux symptoms ENDOCRINE: Negative for cold or heat intolerance, polyuria, polydipsia and goiter NEURO: No history of headaches, syncope, paralysis, seizures or tremors EXAM: BP 130/72 Pulse 90 Resp 20 Wt 76.7 kg (169 lb) BMI 31.50 kg/m Last 4 Encounter Wt Readings: Date: Wt: 06/26/2022 76.7 kg (169 lb) 12/12/2021 75.3 kg (166 lb) 08/07/2021 74.4 kg (164 lb) 06/17/2021 74.4 kg (164 lb) General Appearance: Well appearing, alert, in no acute distress, well-hydrated, well nourished.. Neck: Supple, no adenopathy; thyroid symmetric, normal size, no bruits. Lungs: Lungs clear to auscultation. No wheezing, rhonchi, rales.. Heart: Negative findings: regular rate and rhythm, S1 normal, S2 normal, no rubs, clicks or gallops, Positive findings: murmur: 2/6 mid systolic low pitched soft murmur URSB . Abdomen: Normal abdominal exam, Abdomen soft, non-tender. Bowel sounds normal. No masses, organomegaly. Extremities: No deformities, , skin discoloration, Good capillary refill. Mild non-pitting edema Peripheral Pulses: Normal. Health Maintenance List DTAP,TDAP,TD(1 - Tdap) Never done SHINGRIX VACCINE(2 of 3) due on 01/22/2012 ADVANCE DIRECTIVE DISCUSSION Never done DEPRESSION ASSESSMENT Never done COVID-19 VACCINE(4 - Booster) due on 10/07/2021 INFLUENZA(1) due on 04/09/2022 DIABETES SCREEN due on 12/12/2024 BONE DENSITY Completed PNEUMOCOCCAL: 65+ Completed Data reviewed Component Latest Ref Rng & Units 12/12/2021 WBC 3.70 - 11.00 k/uL 4.95 RBC 3.90 - 5.20 m/uL 4.06 Hemoglobin 11.5 - 15.5 g/dL 12.6 Hematocrit 36.0 - 46.0 % 39.6 MCV 80.0 - 100.0 fL 97.5 MCH 26.0 - 34.0 pg 31.0 MCHC 30.5 - 36.0 g/dL 31.8 RDW-CV 11.5 - 15.0 % 14.2 Platelet Count 150 - 400 k/uL 239 MPV 9.0 - 12.7 fL 10.9 Neut% % 53.6 Abs Neut (ANC) 1.45 - 7.50 k/uL 2.65 Lymph% % 33.7 Abs Lymph 1.00 - 4.00 k/uL 1.67 Labette% % 8.5 Abs Labette <0.87 k/uL 0.42 Eosin% % 2.6 Abs Eosin <0.46 k/uL 0.13 Baso% % 1.2 Abs Baso <0.11 k/uL 0.06 Immature Gran % % 0.4 IMMATURE GRANS (ABS) <0.10 k/uL <0.03 NRBC /100 WBC 0.0 Absolute nRBC <0.01 k/uL <0.01 DTYPE Auto Protein, Total 6.3 - 8.0 g/dL 7.8 Albumin 3.9 - 4.9 g/dL 4.7 Calcium 8.5 - 10.2 mg/dL 9.8 Bilirubin, Total 0.2 - 1.3 mg/dL 0.4 Alkaline Phosphatase 34 - 123 U/L 66 AST 13 - 35 U/L 30 ALT 7 - 38 U/L 19 Glucose 74 - 99 mg/dL 102 (H) BUN 7 - 21 mg/dL 13 Creatinine 0.58 - 0.96 mg/dL 0.65 Sodium 136 - 144 mmol/L 140 Potassium 3.7 - 5.1 mmol/L 4.8 Chloride 97 - 105 mmol/L 102 CO2 22 - 30 mmol/L 26 Anion Gap 9 - 18 mmol/L 12 eGFR >=60 mL/min/1.73m 88 Color Yellow Light Yellow Clarity Clear Clear Glucose, Urine Negative Negative Bilirubin, Urine Negative Negative Ketones, Urine Negative Negative Specific Russell, Ur 1.005 - 1.030 1.006 Hemoglobin/Blood,Ur Negative Negative pH, Urine 5.0 - 8.0 6.0 Protein, Urine Negative Negative Urobilinogen Negative Negative Nitrites Negative Negative Leukest Negative Negative WBC, Urine 0-5 /HPF 0-5 /HPF RBC, Urine 0-3 /HPF 0-3 /HPF Epithelial Cells /HPF Few Total Cholesterol, Nonfasting <200 mg/dL 239 (H) Triglycerides, Nonfasting <150 mg/dL 233 (H) HDL Cholesterol, Nonfasting >39 mg/dL 52 LDL Cholesterol, Nonfasting <100 mg/dL 140 (H) Non HDL Cholesterol, Nonfasting <130 mg/dL 187 (H) VLDL Cholesterol, Nonfasting <30 mg/dL 47 (H) Total Chol/HDL Ratio, Nonfasting <5.10 mg/dL 4.60 LDL/HDL Ratio, Nonfasting <2.54 mg/dL 2.69 (H) TSH 0.270 - 4.200 mIU/L 2.980 A/P ASSESSMENT/PLAN: 1. Essential hypertension - ICD9: 401.9, ICD10: I10 (primary diagnosis) - good control - Continue current medication(s) - Recommended regular aerobic exercise. - Recommend home blood pressure monitoring, to bring results in on next visit - Goal of BP <130/80 2. Mixed hyperlipidemia - ICD9: 272.2, ICD10: E78.2 - suboptimal control - Encouraged following a low fat, low cholesterol diet. - Discussed the benefits of regular aerobic exercise and weight loss. - Encouraged following a low carbohydrate, healthy oil intake diet. - Continue current therapy. Check lipids 3. Gastroesophageal reflux disease without esophagitis - ICD9: 530.81, ICD10: K21.9 - Continue treatment with Prilosec 20 mg QD 4. Acquired hypothyroidism - ICD9: 244.9, ICD10: E03.9 - Instructed patient on importance of taking on an empty stomach either first thing in the morning or at bedtime. Check TSH 5. Aortic stenosis, moderate - ICD9: 424.1, ICD10: I35.0 - clinically stable no changes. 6. Osteoarthritis of multiple joints, unspecified osteoarthritis type - ICD9: 715.89, ICD10: M15.9 Cont - TRAMADOL 50 MG TABLET PDMP website checked and validated. All prescriptions have been APPROPRIATELY filled. No suspiciousactivity was identified. 06/26/2022 by Carl Encarnacion MD 7. Encounter for immunization - ICD9: V03.89, ICD10: Z23 - INFLUENZA SEASONAL QUADRIVALENT HIGH DOSE AGE 65+: Given - [facility] COVID-19 BIVALENT BOOSTER VACCINE, AGE 12+ YR: given 8. Advance directive discussed with patient - ICD9: V65.49, ICD10: Z71.89 - packets provided. Requested Prescriptions Signed Prescriptions Disp Refills lovastatin 40 mg tablet 90 tablet 1 Sig: Take 1 tablet by mouth daily at bedtime. For cholesterol. omeprazole (PRILOSEC) 20 mg capsule 90 capsule 1 Sig: Take 1 capsule by mouth once daily. traMADol (ULTRAM) 50 mg tablet 180 tablet 2 Sig: Take 1 tablet by mouth twice daily for 90 days. for arthritis pain. methylPREDNISolone (MEDROL, IKE,) 4 mg Dose-Pack 21 tablet 0 Sig: Follow dosing instructions, take with food. F/u 6 months routine will need CMP, lipid, UA, TSH, CBC, B12, Mg and urine Tox ordered at next visit. Carl Encarnacion MD documented [facility] encounter[facility]11-[facility]22 Miscellaneous Notes* Telephone Encounter - Carl Encarnacion MD - 06/10/2022 12:36 PM EDT The following approved medication requests have been transmitted electronically. Requested Prescriptions Signed Prescriptions Disp Refills NIFEdipine ER (PROCARDIA XL) 30 mg 24 hr tablet 90 tablet 1 Sig: Take 1 tablet by mouth once daily. Authorizing Provider: CARL ENCARNACION MD * Telephone Encounter - Keily Rico MA - 06/10/2022 11:56 AM EDT Patient has been identified by name and date of : Yes Requested Prescriptions Pending Prescriptions Disp Refills NIFEdipine ER (PROCARDIA XL) 30 mg 24 hr tablet 90 tablet 1 Sig: Take 1 tablet by mouth once daily. RX INSTRUCTIONS: Patient aware RX will be sent to pharmacy. No need to notify patient. Keily Rico MA Vira: 12/2021 Nov: 06/2022 Last refill: 12/2021 * Telephone Encounter - Sherlyn Reza Pss - 06/10/2022 10:54 AM EDT Patient has been identified by name and date of : Yes Last office visit in this department: Visit date not found RX INSTRUCTIONS: Patient aware RX will be sent to pharmacy. No need to notify patient. Patient phones requesting refills as follows: Requested Prescriptions Pending Prescriptions Disp Refills NIFEdipine ER (PROCARDIA XL) 30 mg 24 hr tablet 90 tablet 1 Sig: Take 1 tablet by mouth once daily. Please review and advise. Sherlyn Reza Pss documented in this encounterGal[facility]10-28-2022 Miscellaneous Notes* Telephone Encounter - Jeremiah Puckett LPN - 06/05/2022 11:49 AM EDT Last refill 03/13/22 Qty: 180 with 2 refills Verified with pharmacist that pt does have 2 refills left but she can't get this refilled until 06/15/22. Pt's daughter advised of same. States she didn't realize there were refills. Was just calling early for refill before pt ran out. Jeremiah Puckett LPN * Telephone Encounter - Lorena Silver - 06/05/2022 10:21 AM EDT Patient has been identified by name and date of : Yes Patient's Daughter phones for refill(s): Requested Prescriptions Pending Prescriptions Disp Refills traMADol (ULTRAM) 50 mg tablet 180 tablet 2 Sig: Take 1 tablet by mouth twice daily for 90 days. for arthritis pain. Date of last office visit in primary care: 12/12/21 Last 2 Encounter Wt Readings: Date: Wt: 12/12/2021 75.3 kg (166 lb) 08/07/2021 74.4 kg (164 lb) Previous labs/tests for medication: Not applicable Please advise. Thank you. Lorena Silver documented in this encounterGalion [facility]10-17-2022 Miscellaneous Notes* Telephone Encounter - Carl Encarnacion MD - 05/25/2022 1:10 PM EDT Noted. * Telephone Encounter - Tamiko Ramirez LPN - 05/25/2022 12:53 PM EDT Gina from [employer] calling patient refused overnight pulse ox testing, patient said she returned her oxygen supplies and did not need to have done. documented in this encounterGalion [facility] Hospital10-05-2022 Miscellaneous Notes* Telephone Encounter - Jeremiah Pucektt LPN - 05/13/2022 1:00 PM EDT Spoke with Imelda and advised of Dr Encarnacion's message. She verbalizes understanding and will relay information. Jeremiah Puckett LPN * Telephone Encounter - Carl Encarnacion MD - 05/13/2022 12:44 PM EDT Testing needs done on room air. * Telephone Encounter - Yancy Wetzel RN - 05/13/2022 10:21 AM EDT Gina with [facility] calls to ask if provider wants pulse oximetry testing done on RA or with Oxygen? Noted patient is refusing to do testing and returning device on 05/07/2022 to [facility] [place]. Equipment not returned yet. Gina asking if provider would want them to try and do it without oxygen to make sure her levels are WNL if patient is agreeable. Yancy Wetzel RN documented in this encounterGalion [facility] Hospital09-29-2022 Miscellaneous Notes* Telephone Encounter - Lorena Silver - 05/07/2022 2:39 PM EDT Patient is refusing to schedule procedure at this time. She states she is returning her device. * Telephone Encounter - Keily Rico MA - 05/04/2022 5:02 PM EDT Faxed order to [facility] for Oximetry Nocturnal. Keily Rico MA Please schedule patient for Adult Oximetry with ambulation. (See PCP orders) Keily Rico MA * Telephone Encounter - Carl Encarnacion MD - 05/01/2022 6:08 PM EDT Oximetry with ambulation ordered. Please assist patient with getting set up. Nocturnal pulse ox order printed and ready to be faxed to [facility] * Telephone Encounter - Jeremiah Puckett LPN - 05/01/2022 2:51 PM EDT Spoke with pt and explained overnight oxygen test as per below. Pt is agreeable to do overnight test as long as there is no mask involved. Please order overnight oxygen testing and 6 minute walk testand contact pt to schedule once orders have been placed. Jeremiah Puckett LPN * Telephone Encounter - Kristen Eugene PA-C - 05/01/2022 1:51 PM EDT We could not put in discharge orders without both tests being completed. And a nocturnal test wouldbe just a monitor that she wears to bed that tracks her oxygen levels during sleep. I don't think amask is involved. She may be confusing with a sleep study. (Please route back to Dr. Encarnacion) Kristen Eugene PA-C * Telephone Encounter - Izzy Duarte LPN - 05/01/2022 10:06 AM EDT Pt called and states she wants to return oxygen. There is a previous phone encounter where she has been instructed on what she needs to do. Pt states she will come into do the 6 minute walk test but she will not put a mask on needed for sleep test. Pt states she was not able to do before and will not do now. She just wants to do the 6 minute walk test only. She is getting a bill for $8.00 and this adds up and she is not going to pay for something she is not using. Pt states if above does not work she will have her daughter take her to [facility] and she will hand them the oxygen equipment she has.Pt states she does not want to be mean but they are trying to pay for the cataract surgery and $8.00 is a lot to her. Please advise pt. Izzy Duarte LPN documented in this encounterGalion [facility]08-09-2022 Miscellaneous Notes* Telephone Encounter - Carl Encarnacion MD - 2022 2:56 PM EDT Noted. * Telephone Encounter - Jeremiah Puckett LPN - 2022 9:[address] Encarnacion's message with pt. She verbalizes understanding. States she is going to be having upcoming cataract surgery and does not want to do anything until after that. She will contact office when she is ready to have orders placed. Jeremiah Puckett LPN * Telephone Encounter - Carl Encarnacion MD - 03/16/2022 10:17 PM EDT Advise patient that the only way I can write an order to discontinue her oxygen is to prove she does n ot need it. This would involve doing a walk test on room Air and a nocturnal oxygen test to prove she does not desaturate and need to stay on Oxygen. If willing to do I can place a order for the walk test and fax a order to [facility] for the sleep test. * Telephone Encounter - Mary Krueger RN - 03/16/2022 11:32 AM EDT Patient asking pcp to please cancel her oxygen. Reports she has not used it in 3 mths. Please fax order to [facility]- fax # [phone] documented in this encounterGalion [facility]08-05-2022 Miscellaneous Notes* Telephone Encounter - Kristen Eugene PA-C - 03/13/2022 1:19 PM EDT The following approved medication requests have been transmitted electronically. Signed Prescriptions Disp Refills traMADol (ULTRAM) 50 mg tablet 180 tablet 2 Sig: Take 1 tablet by mouth twice daily for 90 days. for arthritis pain. MIGUEL Class: C-IV NICK: No Authorizing Provider: KRISTEN EUGENE PA-C * Telephone Encounter - June Kruse Ma - 03/13/2022 9:32 AM EDT Last office visit: 12/12/21 F/u scheduled: 06/19/22 Last refilled on: Tramadol #180 with 0 refill on 12/12/21 June Kruse Ma * Telephone Encounter - Stephanie Estrada - 03/13/2022 8:24 AM EDT Patient has been identified by name and date of : Yes Pending Prescriptions Disp Refills TRAMADOL 50 MG TABLET 180 tablet 2 Sig: Take 1 tablet by mouth twice daily for 90 days. for arthritis pain. MIGUEL Class: C-IV NICK: No RX INSTRUCTIONS: Patient aware RX will be sent to pharmacy. No need to notify patient. Stephanie Duarte Pss documented in this encounterGalion [facility]05-09-2022 Miscellaneous Notes* Telephone Encounter - Carl Encarnacion MD - 12/15/2021 11:18 AM EDT The following approved medication requests have been transmitted electronically. Signed Prescriptions Disp Refills lovastatin 40 mg tablet 90 tablet 1 Sig: Take 1 tablet by mouth daily at bedtime. For cholesterol. NICK: No Authorizing Provider: CARL ENCARNACION MD * Telephone Encounter - Keily Rico MA - 12/15/2021 10:51 AM EDT Daughter notified and voiced understanding. She is ok with patient starting the medication. She does request a 90 day supply. Keily Rico MA ' * Telephone Encounter - Carl Encarnacion MD - 12/15/2021 10:44 AM EDT Let patient know her recent labs were all ok except the lipid panel. On the lipid panel her Trigs were elevated at 233 (goal<150 and were 149), HDL good at 52 and LDL elevated at 140 (goal<130). See if willing to have her Mevacor (lovastatin) increased to 40 mg a day? documented in this encounterGalion [facility]05-06-2022 History of Present illness Narrative* Carl Encarnacion MD - 12/12/2021 11:54 AM EDT Chief Complaint Patient presents with: Follow Up HPI Stefano Washington is a 81 year old female who presents here today for Chronic Medical Conditions.. Patient with hx of HTN, HLP, GERD, hypothyroidism, anemia, and those as reviewed. Patient was in the hospital for COVID 05/2021 and developed a PE. Was placed on Eliquis and needed to be on it till 11/07/2021. She was taken off her BP meds while in the hospital due to BP being to low. Patient has been feeling better. Has been walking with a walker and wants to work on walking more. Has not home BP's have been running higher. Wants to get a cataract addressed The Tramadol continues to control her OA pain and improve her quality of life. Past medical history, appointments, medications, allergies reviewed. Previous Medical History PAST MEDICAL HISTORY Diagnosis Date Acquired hypothyroidism 07/12/2015 Acute right-sided low back pain with right-sided sciatica 05/13/2016 Chronic pain of right knee 10/29/2017 COVID-19 virus infection 05/07/2021 04/27/2021 Essential hypertension 10/20/2005 Gastroesophageal reflux disease without esophagitis 07/12/2015 hiatal hernia Iron deficiency anemia, unspecified Mixed hyperlipidemia 04/15/2011 Osteoarthritis of multiple joints 07/12/2015 Substance agreement signed 08/28/2016. On chronic Tramadol for control. 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 COLONOSCOP W/ OR W/O [facility] SPEC 02/14/09 repeat 10 yrs, sigmoid diverticulosis, internal hemorrhoids EGD W/O [facility] SPECIMEN W/BX 02/14/09 hiatal hernia, esophagitis, gastritis FECAL OCCULT BLOOD TEST 03/01/2017 negative PAST SURGICAL HISTORY OF uterine polyp Family History FAMILY HISTORY Adopted: Yes Problem Relation Age of Onset other (unknown) Other adopted Patient Allergies ALLERGIES No Known Allergies Current Medications Current Outpatient Medications on File Prior to Visit Medication Sig levothyroxine (SYNTHROID) 88 mcg tablet take one tablet by mouth wednesday through wednesday and none on wednesday. lovastatin (MEVACOR) 20 mg tablet Take 1 tablet by mouth daily at bedtime. For cholesterol. traMADol (ULTRAM) 50 mg tablet Take 1 tablet by mouth twice daily for 90 days. for arthritis pain. Do not start before September 16, 2021. apixaban (ELIQUIS) 5 mg tab(s) Take 1 tablet by mouth twice daily. ELIQUIS 5 mg tab(s) Take 1 tablet by mouth twice daily. omeprazole (PRILOSEC) 20 mg capsule Take 1 capsule by mouth once daily. nabumetone (RELAFEN) 500 mg tablet Take 1 tablet by mouth twice daily as needed. THERAPEUTIC MULTIVITAMIN TAB daily Calcium-Cholecalciferol (D3) 500-200 mg-unit ORAL Tab Take one(1) tablet two(2) times daily. Current Facility-Administered Medications on File Prior to Visit Medication perflutren lipid microspheres 1.3 mL in NaCl (PF) 0.9% 10 mL injection (DEFINITY) sodium chloride 0.9 % (flush) 10 mL (BD POSIFLUSH) Social History Social History Tobacco Use Smoking status: Never Smoker Smokeless tobacco: Never Used Substance Use Topics Alcohol use: No Drug use: No Review of Symptoms REVIEW OF SYSTEMS GENERAL: No weight loss, malaise or fevers NECK: Negative for lumps, goiter, pain and significant neck swelling RESPIRATORY: Negative for cough, hemoptysis, wheezing, COPD, dyspnea or shortness of breath CARDIOVASCULAR: Negative for chest pain, increased leg swelling, hypertension, CHF or palpitations GI: No nausea, vomiting, or diarrhea and No heartburn or reflux symptoms MUSCULOSKELETAL: see HPI NEURO: No history of headaches, syncope, paralysis, seizures or tremors EXAM: BP 170/98 (BP Site: Left Arm, BP Position: Sitting, BP Cuff Size: Regular Adult) Pulse 82 Resp 16 Wt 75.3 kg (166 lb) BMI 30.94 kg/m Last 4 Encounter Wt Readings: Date: Wt: 12/12/2021 75.3 kg (166 lb) 08/07/2021 74.4 kg (164 lb) 06/17/2021 74.4 kg (164 lb) 05/09/2021 0 kg () General Appearance: Well appearing, alert, in no acute distress, well-hydrated, well nourished. andOverweight. Eyes: Anicteric sclera. Pupils are equally round. Neck: Supple, no adenopathy; thyroid symmetric, normal size, no bruits. Lungs: Lungs clear to auscultation. No wheezing, rhonchi, rales.. Heart: RRR without gallop, or rubs. No ectopy. Has 3/6 AMAN Abdomen: Normal abdominal exam, Abdomen soft, non-tender. Bowel sounds normal. No masses, organomegaly. Extremities: No deformities, skin discoloration. 1+ edema stable and improved. Peripheral Pulses: Normal. Neurologic: Sensation to light touch intact.. Health Maintenance List DTAP,TDAP,TD(1 - Tdap) Never done SHINGRIX VACCINE(2 of 3) due on 01/22/2012 ADVANCE DIRECTIVE DISCUSSION Never done DIABETES SCREEN due on 08/12/2024 BONE DENSITY Completed INFLUENZA Completed PNEUMOVAX AGE 65 AND OVER WITH 5YR LOOKBACK Completed COVID-19 VACCINE Completed MENINGOCOCCAL CONJUGATE Aged Out Data reviewed A/P ASSESSMENT/PLAN: 1. Essential hypertension - ICD9: 401.9, ICD10: I10 (primary diagnosis) - suboptimal control - Begin Procardia XL 30 mg a day - NV BP check in 4 weeks - Recommended regular aerobic exercise. - Recommend home blood pressure monitoring, to bring results in on next visit - Goal of BP <130/80 Check - COMP METABOLIC PANEL - LIPID PANEL, NONFASTING - URINALYSIS, WITH MICROSCOPIC - CBC + DIFF 2. Mixed hyperlipidemia - ICD9: 272.2, ICD10: E78.2 - to be determined upon return of lab results - Encouraged following a low fat, low cholesterol diet. - Discussed the benefits of regular aerobic exercise and weight loss. - Encouraged following a low carbohydrate, healthy oil intake diet. - Continue current therapy. Check - COMP METABOLIC PANEL - LIPID PANEL, NONFASTING - URINALYSIS, WITH MICROSCOPIC - CBC + DIFF 3. Acquired hypothyroidism - ICD9: 244.9, ICD10: E03.9 - Instructed patient on importance of taking on an empty stomach either first thing in the morning or at bedtime. - continue current dose of Synthroid\ Check - TSH BLD 4. History of pulmonary embolism - ICD9: V12.55, ICD10: Z86.711 - Ok to stop Eliquis, since she has completed 6 months of therapy. 5. Gastroesophageal reflux disease without esophagitis - ICD9: 530.81, ICD10: K21.9 - Continue treatment with Prilosec 20 mg QD 6. Osteoarthritis of multiple joints, unspecified osteoarthritis type - ICD9: 715.89, ICD10: M15.9 - substance agreement updated. Cont - TRAMADOL 50 MG TABLET - PAIN PANEL, UR QUANT - TOX SCREEN ROUT UR - PAIN PANEL, UR QUANT - SPECIMEN VALIDITY, URINE 7. Medication management - ICD9: V58.69, ICD10: Z79.899 Check - PAIN PANEL, UR QUANT - TOX SCREEN ROUT UR - PAIN PANEL, UR QUANT - SPECIMEN VALIDITY, URINE Signed Prescriptions Disp Refills lovastatin (MEVACOR) 20 mg tablet 90 tablet 1 Sig: Take 1 tablet by mouth daily at bedtime. For cholesterol. NICK: No traMADol (ULTRAM) 50 mg tablet 180 tablet 0 Sig: Take 1 tablet by mouth twice daily for 90 days. for arthritis pain. MIGUEL Class: C-IV NICK: No omeprazole (PRILOSEC) 20 mg capsule 90 capsule 1 Sig: Take 1 capsule by mouth once daily. NICK: No NIFEdipine ER (PROCARDIA XL) 30 mg 24 hr tablet 90 tablet 1 Sig: Take 1 tablet by mouth once daily. NICK: No predniSONE (DELTASONE) 10 mg tablet 30 tablet 0 Sig: Take 4 tabs daily x 3 days, then 3 tabs x 3 days, 2 tabs x 3 days, then 1 tab x3 days with food. NICK: No F/u NV BP check in 4 weeks F/u 6 months routine Carl Encarnacion MD [facility] Miscellaneous Notes* Telephone Encounter - MARI Rowell - 11/28/2021 8:33 AM EDT Last OV on 08/07/2021 Appointment scheduled for 12/12/2021 Please advise. Thank you. * Telephone Encounter - Stefany Estrada - 11/28/2021 8:22 AM EDT Patient has been identified by name and date of : Yes Pending Prescriptions Disp Refills LEVOTHYROXINE 88 MCG TABLET 90 tablet 1 Sig: take one tablet by mouth wednesday through wednesday and none on wednesday. NICK: No RX INSTRUCTIONS: Patient aware RX will be sent to pharmacy. No need to notify patient. Stefany Estrada [facility] Miscellaneous Notes* Telephone Encounter - Carl Encarnacion MD - 11/17/2021 1:23 PM EDT No changes in antibiotic needed at this time. * Telephone Encounter - Jeremiah Puckett LPN - 11/17/2021 7:32 AM EDT Received results of urine culture ordered by Kristen. Kristen is out of the office today. Results forwarded to Dr Encarnacion to review. Results on Dr Encranacion's desk. Jeremiah Puckett LPN documented [facility] Miscellaneous Notes* Telephone Encounter - Sruthi Pisano Ma - 11/14/2021 1:25 PM EDT sylvia was notified and aware antibiotic Sruthi Pisano Ma * Telephone Encounter - Kristen Eugene PA-C - 11/14/2021 1:14 PM EDT Let patient know that preliminary tests shows evidence for UTI. I don't have full report yet. Will start atb. If any changes needed once I get sensitivities results, will let them know. Kristen Eugene PA-C * Telephone Encounter - Jeremiah Puckett LPN - 11/14/2021 11:45 AM EDT Preliminary results from urine culture on your desk for review. Jeremiah Puckett LPN * Telephone Encounter - Jeremiah Puckett LPN - 11/13/2021 1:02 PM EDT Received pt's UA results. Results on your desk for review. Jeremiah Puckett LPN * Telephone Encounter - Savi Lopez LPN - 11/12/2021 2:01 PM EDT TC to POA, updated her on orders and faxing of them. She stated she understood. Savi Lopez LPN * Telephone Encounter - Kristen Eugene PA-C - 11/12/2021 1:11 PM EDT I will put in order. But needs seen if worsening. Kristen Eugene PA-C * Telephone Encounter - Sruthi Pisano Ma - 11/12/2021 12:10 PM EDT Spoke to granddaughter who advised patient is home bound can not leave home. Melanie works for [employer] sowould collect urine and process that through [employer] [employer]. If willing can order be placed and faxed to Sruthi Pisano Ma * Telephone Encounter - Kristen Eugene PA-C - 11/12/2021 11:58 AM EDT Can they bring her in today to see me at 220 or at [facility] come to [facility]? Kristen Eugene PA-C * Telephone Encounter - Gina Curiel LPN - 11/12/2021 11:44 AM EDT Patients granddaughter Melanie calling, concerned that patient may have another UTI. She has been irritable and confused the last couple of days but worse today. Patient has had frequent UTI's. Asking what PCP/FOOD INSPECTOR would recommend. Please advise. documented in this encounterGal[facility]11[facility] History of Past illness Narrative* Problem Noted Date Resolved Date Acute respiratory failure 06/18/20212021 Pain in joint, pelvic region and thigh 3 11/28/2012 Enthesopathy of hip region 10/27/201211/28 Acute gastritis without mention of hemorrhage 12/07/2014 Iron deficiency anemia, unspecified 02/14/2009 05/10/2018 documented as of this encounter (statuses as of 11/14/2021) [facility] Narrative* Problem Noted Date Resolved Date Acute respiratory failure 06/18/20212021 Pain in joint, pelvic region and thigh 3 11/28/2012 Enthesopathy of hip region 10/27/201211/28 Acute gastritis without mention of hemorrhage 12/07/2014 Iron deficiency anemia, unspecified 02/14/2009 05/10/2018 documented as of this encounter (statuses as of 11/17/2021) [facility] Narrative* Problem Noted Date Resolved Date Acute respiratory failure 06/18/20212021 Pain in joint, pelvic region and thigh 3 11/28/2012 Enthesopathy of hip region 10/27/201211/28 Acute gastritis without mention of hemorrhage 12/07/2014 Iron deficiency anemia, unspecified 02/14/2009 05/10/2018 documented as of this encounter (statuses as of 11/28/2021) [facility] Narrative* Problem Noted Date Resolved Date Acute respiratory failure 06/18/20212021 Pain in joint, pelvic region and thigh 3 11/28/2012 Enthesopathy of hip region 10/27/201211/28 Acute gastritis without mention of hemorrhage 12/07/2014 Iron deficiency anemia, unspecified 02/14/2009 05/10/2018 documented as of this encounter (statuses as of 12/13/2021) [facility] Narrative* Problem Noted Date Resolved Date Acute respiratory failure 06/18/20212021 Pain in joint, pelvic region and thigh 3 11/28/2012 Enthesopathy of hip region 10/27/201211/28 Acute gastritis without mention of hemorrhage 12/07/2014 Iron deficiency anemia, unspecified 02/14/2009 05/10/2018 documented as of this encounter (statuses as of 12/15/2021) [facility] Narrative* Problem Noted Date Resolved Date Acute respiratory failure 06/18/20212021 Pain in joint, pelvic region and thigh 3 11/28/2012 Enthesopathy of hip region 10/27/201211/28 Acute gastritis without mention of hemorrhage 12/07/2014 Iron deficiency anemia, unspecified 02/14/2009 05/10/2018 documented as of this encounter (statuses as of 03/13/2022) [facility] Narrative* Problem Noted Date Resolved Date Acute respiratory failure 06/18/20212021 Pain in joint, pelvic region and thigh 3 11/28/2012 Enthesopathy of hip region 10/27/201211/28 Acute gastritis without mention of hemorrhage 12/07/2014 Iron deficiency anemia, unspecified 02/14/2009 05/10/2018 documented as of this encounter (statuses as of 2022) [facility] Narrative* Problem Noted Date Resolved Date Acute respiratory failure 06/18/20212021 Pain in joint, pelvic region and thigh 3 11/28/2012 Enthesopathy of hip region 10/27/201211/28 Acute gastritis without mention of hemorrhage 12/07/2014 Iron deficiency anemia, unspecified 02/14/2009 05/10/2018 documented as of this encounter (statuses as of 05/07/2022) [facility] Narrative* Problem Noted Date Resolved Date Acute respiratory failure 06/18/20212021 Pain in joint, pelvic region and thigh 3 11/28/2012 Enthesopathy of hip region 10/27/201211/28 Acute gastritis without mention of hemorrhage 12/07/2014 Iron deficiency anemia, unspecified 02/14/2009 05/10/2018 documented as of this encounter (statuses as of 05/13/2022) [facility]arrative* Problem Noted Date Resolved Date Acute respiratory failure 06/18/20212021 Pain in joint, pelvic region and thigh 3 11/28/2012 Enthesopathy of hip region 10/27/201211/28 Acute gastritis without mention of hemorrhage 12/07/2014 Iron deficiency anemia, unspecified 02/14/2009 05/10/2018 documented as of this encounter (statuses as of 05/25/2022) [facility]arrative* Problem Noted Date Resolved Date Acute respiratory failure 06/18/20212021 Pain in joint, pelvic region and thigh 3 11/28/2012 Enthesopathy of hip region 10/27/201211/28 Acute gastritis without mention of hemorrhage 12/07/2014 Iron deficiency anemia, unspecified 02/14/2009 05/10/2018 documented as of this encounter (statuses as of 06/05/2022) [facility]arrative* Problem Noted Date Resolved Date Acute respiratory failure 06/18/20212021 Pain in joint, pelvic region and thigh 3 11/28/2012 Enthesopathy of hip region 10/27/201211/28 Acute gastritis without mention of hemorrhage 12/07/2014 Iron deficiency anemia, unspecified 02/14/2009 05/10/2018 documented as of this encounter (statuses as of 06/10/2022) [facility]arrative* Problem Noted Date Resolved Date Acute respiratory failure 06/18/20212021 Pain in joint, pelvic region and thigh 3 11/28/2012 Enthesopathy of hip region 10/27/201211/28 Acute gastritis without mention of hemorrhage 12/07/2014 Iron deficiency anemia, unspecified 02/14/2009 05/10/2018 documented as of this encounter (statuses as of 06/28/2022) [facility]arrative* Problem Noted Date Resolved Date Acute respiratory failure 06/18/20212021 Pain in joint, pelvic region and thigh 3 11/28/2012 Enthesopathy of hip region 10/27/201211/28 Acute gastritis without mention of hemorrhage 12/07/2014 Iron deficiency anemia, unspecified 02/14/2009 05/10/2018 documented as of this encounter (statuses as of 06/29/2022) [facility]arrative* Problem Noted Date Resolved Date Acute respiratory failure 06/18/20212021 Pain in joint, pelvic region and thigh 3 11/28/2012 Enthesopathy of hip region 10/27/201211/28 Acute gastritis without mention of hemorrhage 12/07/2014 Iron deficiency anemia, unspecified 02/14/2009 05/10/2018 documented as of this encounter (statuses as of 07/19/2022) [facility]arrative* Problem Noted Date Resolved Date Acute respiratory failure 06/18/20212021 Pain in joint, pelvic region and thigh 3 11/28/2012 Enthesopathy of hip region 10/27/201211/28 Acute gastritis without mention of hemorrhage 12/07/2014 Iron deficiency anemia, unspecified 02/14/2009 05/10/2018 documented as of this encounter (statuses as of 07/20/2022) [facility]arrative* Problem Noted Date Resolved Date Acute respiratory failure 06/18/20212021 Pain in joint, pelvic region and thigh 3 11/28/2012 Enthesopathy of hip region 10/27/201211/28 Acute gastritis without mention of hemorrhage 12/07/2014 Iron deficiency anemia, unspecified 02/14/2009 05/10/2018 documented as of this encounter (statuses as of 09/10/2022) [facility]ative* Problem Noted Date Resolved Date Acute respiratory failure 06/18/20212021 Pain in joint, pelvic region and thigh 3 11/28/2012 Enthesopathy of hip region 10/27/201211/28 Acute gastritis without mention of hemorrhage 12/07/2014 Iron deficiency anemia, unspecified 02/14/2009 05/10/2018 documented as of this encounter (statuses as of 11/06/2022) [facility]arrative* Problem Noted Date Resolved Date Acute respiratory failure 06/18/20212021 Pain in joint, pelvic region and thigh 3 11/28/2012 Enthesopathy of hip region 10/27/201211/28 Acute gastritis without mention of hemorrhage 12/07/2014 Iron deficiency anemia, unspecified 02/14/2009 05/10/2018 documented as of this encounter (statuses as of 01/12/2023) [facility]arrative* Problem Noted Date Resolved Date Acute respiratory failure 06/18/20212021 Pain in joint, pelvic region and thigh 3 11/28/2012 Enthesopathy of hip region 10/27/201211/28 Acute gastritis without mention of hemorrhage 12/07/2014 Iron deficiency anemia, unspecified 02/14/2009 05/10/2018 documented as of this encounter (statuses as of 01/21/2023) [facility]ative* Problem Noted Date Resolved Date Acute respiratory failure 06/18/20212021 Pain in joint, pelvic region and thigh 3 11/28/2012 Enthesopathy of hip region 10/27/201211/28 Acute gastritis without mention of hemorrhage 12/07/2014 Iron deficiency anemia, unspecified 02/14/2009 05/10/2018 documented as of this encounter (statuses as of 01/25/2023) [place] [address]-10-2021 History of Past illness Narrative* Problem Noted Date Resolved Date Acute respiratory failure 06/18/20212021 Pain in joint, pelvic region and thigh 3 11/28/2012 Enthesopathy of hip region 10/27/201211/28 Acute gastritis without mention of hemorrhage 12/07/2014 Iron deficiency anemia, unspecified 02/14/2009 05/10/2018 documented as of this encounter (statuses as of 01/27/2023) [address] History of Past illness Narrative* Problem Noted Date Resolved Date Acute respiratory failure 06/18/20212021 Pain in joint, pelvic region and thigh 3 11/28/2012 Enthesopathy of hip region 10/27/201211/28 Acute gastritis without mention of hemorrhage 12/07/2014 Iron deficiency anemia, unspecified 02/14/2009 05/10/2018 documented as of this encounter (statuses as of 02/02/2023) [facility]ative* Problem Noted Date Resolved Date Acute respiratory failure 06/18/20212021 Pain in joint, pelvic region and thigh 3 11/28/2012 Enthesopathy of hip region 10/27/201211/28 Acute gastritis without mention of hemorrhage 12/07/2014 Iron deficiency anemia, unspecified 02/14/2009 05/10/2018 documented as of this encounter (statuses as of 02/03/2023) [facility] Narrative* Problem Noted Date Resolved Date Acute respiratory failure 06/18/20212021 Pain in joint, pelvic region and thigh 3 11/28/2012 Enthesopathy of hip region 10/27/201211/28 Acute gastritis without mention of hemorrhage 12/07/2014 Iron deficiency anemia, unspecified 02/14/2009 05/10/2018 documented as of this encounter (statuses as of 02/08/2023) [facility] Narrative* Problem Noted Date Diagnosed Date Resolved Date Acute respiratory failure 06/18/2021 Pain in joint, pelvic region and thigh 10/27/2012 11/28/2012 Enthesopathy of hip region 10/27/2012 0 11/28/2012 Acute gastritis without mention of hemorrhage 02/15/20 09 12/07/2014 Iron deficiency anemia, unspecified 02/14/2009 05/10/2018 documented as of this encounter (statuses as of 2023) [facility]arrative* Problem Noted Date Diagnosed Date Resolved Date Acute respiratory failure 06/18/2021 Pain in joint, pelvic region and thigh 10/27/2012 11/28/2012 Enthesopathy of hip region 10/27/2012 0 11/28/2012 Acute gastritis without mention of hemorrhage 02/15/20 09 12/07/2014 Iron deficiency anemia, unspecified 02/14/2009 05/10/2018 documented as of this encounter (statuses as of 03/23/2023) [facility]ative* Problem Noted Date Diagnosed Date Resolved Date Acute respiratory failure 06/18/2021 Pain in joint, pelvic region and thigh 10/27/2012 11/28/2012 Enthesopathy of hip region 10/27/2012 0 11/28/2012 Acute gastritis without mention of hemorrhage 02/15/20 09 12/07/2014 Iron deficiency anemia, unspecified 02/14/2009 05/10/2018 documented as of this encounter (statuses as of 03/23/2023) [facility]* Problem Noted Date Diagnosed Date Resolved Date Acute respiratory failure 06/18/2021 Pain in joint, pelvic region and thigh 10/27/2012 11/28/2012 Enthesopathy of hip region 10/27/2012 0 11/28/2012 Acute gastritis without mention of hemorrhage 02/15/20 09 12/07/2014 Iron deficiency anemia, unspecified 02/14/2009 05/10/2018 documented as of this encounter (statuses as of 03/23/2023) [facility]* Problem Noted Date Diagnosed Date Resolved Date Acute respiratory failure 06/18/2021 Pain in joint, pelvic region and thigh 10/27/2012 11/28/2012 Enthesopathy of hip region 10/27/2012 0 11/28/2012 Acute gastritis without mention of hemorrhage 02/15/20 09 12/07/2014 Iron deficiency anemia, unspecified 02/14/2009 05/10/2018 documented as of this encounter (statuses as of 03/25/2023) [facility]* Problem Noted Date Diagnosed Date Resolved Date Acute respiratory failure 06/18/2021 Pain in joint, pelvic region and thigh 10/27/2012 11/28/2012 Enthesopathy of hip region 10/27/2012 0 11/28/2012 Acute gastritis without mention of hemorrhage 02/15/20 09 12/07/2014 Iron deficiency anemia, unspecified 02/14/2009 05/10/2018 documented as of this encounter (statuses as of 03/29/2023) [facility]* Problem Noted Date Diagnosed Date Resolved Date Acute respiratory failure 06/18/2021 Pain in joint, pelvic region and thigh 10/27/2012 11/28/2012 Enthesopathy of hip region 10/27/2012 0 11/28/2012 Acute gastritis without mention of hemorrhage 02/15/20 09 12/07/2014 Iron deficiency anemia, unspecified 02/14/2009 05/10/2018 documented as of this encounter (statuses as of 04/07/2023) [facility]* Problem Noted Date Diagnosed Date Resolved Date Acute respiratory failure 06/18/2021 Pain in joint, pelvic region and thigh 10/27/2012 11/28/2012 Enthesopathy of hip region 10/27/2012 0 11/28/2012 Acute gastritis without mention of hemorrhage 02/15/20 09 12/07/2014 Iron deficiency anemia, unspecified 02/14/2009 05/10/2018 documented as of this encounter (statuses as of 04/07/2023) [facility]* Problem Noted Date Diagnosed Date Resolved Date Acute respiratory failure 06/18/2021 Pain in joint, pelvic region and thigh 10/27/2012 11/28/2012 Enthesopathy of hip region 10/27/2012 0 11/28/2012 Acute gastritis without mention of hemorrhage 02/15/20 09 12/07/2014 Iron deficiency anemia, unspecified 02/14/2009 05/10/2018 documented as of this encounter (statuses as of 04/12/2023) [facility]* Problem Noted Date Diagnosed Date Resolved Date Acute respiratory failure 06/18/2021 Pain in joint, pelvic region and thigh 10/27/2012 11/28/2012 Enthesopathy of hip region 10/27/2012 0 11/28/2012 Acute gastritis without mention of hemorrhage 02/15/20 09 12/07/2014 Iron deficiency anemia, unspecified 02/14/2009 05/10/2018 documented as of this encounter (statuses as of 04/23/2023) [facility]* Problem Noted Date Diagnosed Date Resolved Date Acute respiratory failure 06/18/2021 Pain in joint, pelvic region and thigh 10/27/2012 11/28/2012 Enthesopathy of hip region 10/27/2012 0 11/28/2012 Acute gastritis without mention of hemorrhage 02/15/20 09 12/07/2014 Iron deficiency anemia, unspecified 02/14/2009 05/10/2018 documented as of this encounter (statuses as of 05/02/2023) [facility]* Problem Noted Date Diagnosed Date Resolved Date Acute respiratory failure 06/18/2021 Pain in joint, pelvic region and thigh 10/27/2012 11/28/2012 Enthesopathy of hip region 10/27/2012 0 11/28/2012 Acute gastritis without mention of hemorrhage 02/15/20 09 12/07/2014 Iron deficiency anemia, unspecified 02/14/2009 05/10/2018 documented as of this encounter (statuses as of 05/04/2023) [facility]* Problem Noted Date Diagnosed Date Resolved Date Acute respiratory failure 06/18/2021 Pain in joint, pelvic region and thigh 10/27/2012 11/28/2012 Enthesopathy of hip region 10/27/2012 0 11/28/2012 Acute gastritis without mention of hemorrhage 02/15/20 09 12/07/2014 Iron deficiency anemia, unspecified 02/14/2009 05/10/2018 documented as of this encounter (statuses as of 05/15/2023) [facility]* Problem Noted Date Diagnosed Date Resolved Date Acute respiratory failure 06/18/2021 Pain in joint, pelvic region and thigh 10/27/2012 11/28/2012 Enthesopathy of hip region 10/27/2012 0 11/28/2012 Acute gastritis without mention of hemorrhage 02/15/20 09 12/07/2014 Iron deficiency anemia, unspecified 02/14/2009 05/10/2018 documented as of this encounter (statuses as of 05/31/2023) [facility]* Problem Noted Date Diagnosed Date Resolved Date Acute respiratory failure 06/18/2021 Pain in joint, pelvic region and thigh 10/27/2012 11/28/2012 Enthesopathy of hip region 10/27/2012 0 11/28/2012 Acute gastritis without mention of hemorrhage 02/15/20 09 12/07/2014 Iron deficiency anemia, unspecified 02/14/2009 05/10/2018 documented as of this encounter (statuses as of 06/03/2023) [facility]* Problem Noted Date Diagnosed Date Resolved Date Acute respiratory failure 06/18/2021 Pain in joint, pelvic region and thigh 10/27/2012 11/28/2012 Enthesopathy of hip region 10/27/2012 0 11/28/2012 Acute gastritis without mention of hemorrhage 02/15/20 09 12/07/2014 Iron deficiency anemia, unspecified 02/14/2009 05/10/2018 documented as of this encounter (statuses as of 06/04/2023) [facility]* Problem Noted Date Diagnosed Date Resolved Date Acute respiratory failure 06/18/2021 Pain in joint, pelvic region and thigh 10/27/2012 11/28/2012 Enthesopathy of hip region 10/27/2012 0 11/28/2012 Acute gastritis without mention of hemorrhage 02/15/20 09 12/07/2014 Iron deficiency anemia, unspecified 02/14/2009 05/10/2018 documented as of this encounter (statuses as of 06/04/2023) [facility]* Problem Noted Date Diagnosed Date Resolved Date Acute respiratory failure 06/18/2021 Pain in joint, pelvic region and thigh 10/27/2012 11/28/2012 Enthesopathy of hip region 10/27/2012 0 11/28/2012 Acute gastritis without mention of hemorrhage 02/15/20 09 12/07/2014 Iron deficiency anemia, unspecified 02/14/2009 05/10/2018 documented as of this encounter (statuses as of 06/08/2023) [facility]* Problem Noted Date Diagnosed Date Resolved Date Acute respiratory failure 06/18/2021 Pain in joint, pelvic region and thigh 10/27/2012 11/28/2012 Enthesopathy of hip region 10/27/2012 0 11/28/2012 Acute gastritis without mention of hemorrhage 02/15/20 09 12/07/2014 Iron deficiency anemia, unspecified 02/14/2009 05/10/2018 documented as of this encounter (statuses as of 06/08/2023) [facility]* Problem Noted Date Diagnosed Date Resolved Date Acute respiratory failure 06/18/2021 Pain in joint, pelvic region and thigh 10/27/2012 11/28/2012 Enthesopathy of hip region 10/27/2012 0 11/28/2012 Acute gastritis without mention of hemorrhage 02/15/20 09 12/07/2014 Iron deficiency anemia, unspecified 02/14/2009 05/10/2018 documented as of this encounter (statuses as of 06/08/2023) [facility]* Problem Noted Date Diagnosed Date Resolved Date Acute respiratory failure 06/18/2021 Pain in joint, pelvic region and thigh 10/27/2012 11/28/2012 Enthesopathy of hip region 10/27/2012 0 11/28/2012 Acute gastritis without mention of hemorrhage 02/15/20 09 12/07/2014 Iron deficiency anemia, unspecified 02/14/2009 05/10/2018 documented as of this encounter (statuses as of 06/11/2023) [facility]* Problem Noted Date Diagnosed Date Resolved Date Acute respiratory failure 06/18/2021 Pain in joint, pelvic region and thigh 10/27/2012 11/28/2012 Enthesopathy of hip region 10/27/2012 0 11/28/2012 Acute gastritis without mention of hemorrhage 02/15/20 09 12/07/2014 Iron deficiency anemia, unspecified 02/14/2009 05/10/2018 documented as of this encounter (statuses as of 06/12/2023) [facility]* Problem Noted Date Diagnosed Date Resolved Date Acute respiratory failure 06/18/2021 Pain in joint, pelvic region and thigh 10/27/2012 11/28/2012 Enthesopathy of hip region 10/27/2012 0 11/28/2012 Acute gastritis without mention of hemorrhage 02/15/20 09 12/07/2014 Iron deficiency anemia, unspecified 02/14/2009 05/10/2018 documented as of this encounter (statuses as of 06/13/2023) [facility]* Problem Noted Date Diagnosed Date Resolved Date Acute respiratory failure 06/18/2021 Pain in joint, pelvic region and thigh 10/27/2012 11/28/2012 Enthesopathy of hip region 10/27/2012 0 11/28/2012 Acute gastritis without mention of hemorrhage 02/15/20 09 12/07/2014 Iron deficiency anemia, unspecified 02/14/2009 05/10/2018 documented as of this encounter (statuses as of 06/13/2023) [facility]21 History of Past illness Narrative* Problem Noted Date Diagnosed Date Resolved Date Acute respiratory failure 06/18/2021 Pain in joint, pelvic region and thigh 10/27/2012 11/28/2012 Enthesopathy of hip region 10/27/2012 0 11/28/2012 Acute gastritis without mention of hemorrhage 02/15/20 09 12/07/2014 Iron deficiency anemia, unspecified 02/14/2009 05/10/2018 documented as of this encounter (statuses as of 06/13/2023) [facility]-10[facility]2021 History of Past illness Narrative* Problem Noted Date Diagnosed Date Resolved Date Acute respiratory failure 06/18/2021 Pain in joint, pelvic region and thigh 10/27/2012 11/28/2012 Enthesopathy of hip region 10/27/2012 0 11/28/2012 Acute gastritis without mention of hemorrhage 02/15/20 09 12/07/2014 Iron deficiency anemia, unspecified 02/14/2009 05/10/2018 documented as of this encounter (statuses as of 06/17/2023) [facility]21 History of Past illness Narrative* Problem Noted Date Diagnosed Date Resolved Date Acute respiratory failure 06/18/2021 Pain in joint, pelvic region and thigh 10/27/2012 11/28/2012 Enthesopathy of hip region 10/27/2012 0 11/28/2012 Acute gastritis without mention of hemorrhage 02/15/20 09 12/07/2014 Iron deficiency anemia, unspecified 02/14/2009 05/10/2018 documented as of this encounter (statuses as of 07/07/2023) [facility] History of Past illness Narrative* Problem Noted Date Diagnosed Date Resolved Date Acute respiratory failure 06/18/2021 Pain in joint, pelvic region and thigh 10/27/2012 11/28/2012 Enthesopathy of hip region 10/27/2012 0 11/28/2012 Acute gastritis without mention of hemorrhage 02/15/20 09 12/07/2014 Iron deficiency anemia, unspecified 02/14/2009 05/10/2018 documented as of this encounter (statuses as of 07/13/2023) [facility] History of Past illness Narrative* Problem Noted Date Diagnosed Date Resolved Date Acute respiratory failure 06/18/2021 Pain in joint, pelvic region and thigh 10/27/2012 11/28/2012 Enthesopathy of hip region 10/27/2012 0 11/28/2012 Acute gastritis without mention of hemorrhage 02/15/20 09 12/07/2014 Iron deficiency anemia, unspecified 02/14/2009 05/10/2018 documented as of this encounter (statuses as of 07/13/2023) [facility] History of Past illness Narrative* Problem Noted Date Diagnosed Date Resolved Date Acute respiratory failure 06/18/2021 Pain in joint, pelvic region and thigh 10/27/2012 11/28/2012 Enthesopathy of hip region 10/27/2012 0 11/28/2012 Acute gastritis without mention of hemorrhage 02/15/20 09 12/07/2014 Iron deficiency anemia, unspecified 02/14/2009 05/10/2018 documented as of this encounter (statuses as of 07/17/2023) [facility] History of Past illness Narrative* Problem Noted Date Diagnosed Date Resolved Date Acute respiratory failure 06/18/2021 Pain in joint, pelvic region and thigh 10/27/2012 11/28/2012 Enthesopathy of hip region 10/27/2012 0 11/28/2012 Acute gastritis without mention of hemorrhage 02/15/2012/07/2014 Iron deficiency anemia, unspecified 02/14/2009 05/10/2018 documented as of this encounter (statuses as of 07/27/2023) [facility] History of Past illness Narrative* Problem Noted Date Diagnosed Date Resolved Date Acute respiratory failure 06/18/2021 Pneumonia due to COVID-19 virus 05/07/2021 08/18/2023 Overview: 04/27/2021 Pain in joint, pelvic region and thigh 10/27/2012 11/28/2012 Enthesopathy of hip region 10/27/2012 0 11/28/2012 Acute gastritis without mention of hemorrhage 02/15/20 09 12/07/2014 Iron deficiency anemia, unspecified 02/14/2009 05/10/2018 documented as of this encounter (statuses as of 10/07/2023) [facility] History of Past illness Narrative* Problem Noted Date Diagnosed Date Resolved Date Acute respiratory failure 06/18/2021 Pneumonia due to COVID-19 virus 05/07/2021 08/18/2023 Overview: 04/27/2021 Pain in joint, pelvic region and thigh 10/27/2012 11/28/2012 Enthesopathy of hip region 10/27/2012 0 11/28/2012 Acute gastritis without mention of hemorrhage 02/15/20 09 12/07/2014 Iron deficiency anemia, unspecified 02/14/2009 05/10/2018 documented as of this encounter (statuses as of 11/25/2023) [facility] Appointment Date:09/16/2023 02:45:00 PM Scheduled Provider: Location:[facility] Appointment Type:CV [facility] Evaluation note* Diagnosis Frequent UTI- Primary Urinary tract infection, site not specified Confusion Unspecified psychosis [facility]* Diagnosis Essential hypertension- Primary Unspecified essential hypertension Mixed hyperlipidemia Acquired hypothyroidism Unspecified hypothyroidism History of pulmonary embolism Personal history of pulmonary embolism Gastroesophageal reflux disease without esophagitis Esophageal reflux Osteoarthritis of multiple joints, unspecified osteoarthritis type Medication management Encounter for long-term (current) use of other medications [facility]* Diagnosis Osteoarthritis of multiple joints, unspecified osteoarthritis type documented [facility] this [facility]* Diagnosis Hypoxia- Primary Hypoxemia [facility] Diagnosis Osteoarthritis of multiple joints, unspecified osteoarthritis type documented [facility]* Diagnosis Essential hypertension- Primary Unspecified essential hypertension Mixed hyperlipidemia Gastroesophageal reflux disease without esophagitis Esophageal reflux Acquired hypothyroidism Unspecified hypothyroidism Aortic stenosis, moderate Aortic valve disorders Osteoarthritis of multiple joints, unspecified osteoarthritis type Encounter for immunization Need for other specified prophylactic vaccination against single bacterial disease Advance directive discussed with patient Other specified counseling documented in this encounter [facility] note* Diagnosis Acute cough- Primary Wheezing [facility]* Diagnosis Osteoarthritis of multiple joints, unspecified osteoarthritis type documented in this encounter [facility] noteNo assessment information [facility]WKet[facility] Work Phone: Evaluation note* Diagnosis Severe back pain- Primary Backache, unspecified Fall, initial encounter [facility]* Diagnosis Urinary frequency- Primary [facility]* Diagnosis Sciatica, right side- Primary Fall, subsequent encounter [facility]* Diagnosis Chronic low back pain with sciatica, sciatica laterality unspecified, unspecified back pain laterality- Primary Compression fracture of T11 vertebra, initial encounter ([facility]) documented in this encounter [facility] note* Diagnosis Sciatica, right side- Primary Falls, subsequent encounter [facility]* Diagnosis Ovarian mass- Primary Unspecified noninflammatory disorder of ovary, fallopian tube, and broad ligament documented in this encounter [facility] note* Diagnosis Preop examination- Primary Preoperative examination, unspecified Ovarian mass Unspecified noninflammatory disorder of ovary, fallopian tube, and broad ligament Preop examination Preoperative examination, unspecified [facility]* Diagnosis Ovarian mass Unspecified noninflammatory disorder of ovary, fallopian tube, and broad ligament Preop examination Preoperative examination, unspecified documented [facility]* Diagnosis Ovarian mass Unspecified noninflammatory disorder of ovary, fallopian tube, and broad ligament Preop examination Preoperative examination, unspecified [facility]* Diagnosis Pre-op evaluation- Primary Preoperative examination, unspecified Acquired hypothyroidism Unspecified hypothyroidism Essential hypertension Unspecified essential hypertension Gastroesophageal reflux disease without esophagitis Esophageal reflux History of pulmonary embolism Personal history of pulmonary embolism Aortic stenosis, moderate Aortic valve disorders [facility]* Diagnosis 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 Malignant neoplasm of ovary Post-operative state Other postprocedural status [facility]* Diagnosis 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, NEC [facility]* Diagnosis 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 Malignant neoplasm of ovary [facility]* Diagnosis Encounter for education- Primary Counseling NOS [facility]* Diagnosis 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 Malignant neoplasm of ovary [facility]* Diagnosis Osteoarthritis of multiple joints, unspecified osteoarthritis type [facility]* Diagnosis 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 Malignant neoplasm of ovary [facility]* Diagnosis Osteoarthritis of multiple joints, unspecified osteoarthritis type [facility]* Diagnosis Pelvic mass Abdominal or pelvic swelling, mass or lump, unspecified site [facility]* Diagnosis Sciatica, right side Fall, subsequent encounter [facility] Diagnosis 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 neoplasm of ovary [facility]* Diagnosis Osteoarthritis of multiple joints, unspecified osteoarthritis type [facility]* Diagnosis 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 neoplasm of ovary documented in this encounter [facility] note* Diagnosis 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 neoplasm of ovary documented in this encounter [facility] note* Diagnosis Osteoarthritis of multiple joints, unspecified osteoarthritis type documented in this encounter [facility] note* Diagnosis Onset Date Resolution Status Fall acute Generalized weakness acute Rhabdomyolysis acute Urinary tract infection [facility] Work Phone: Evaluation note* Diagnosis Osteoarthritis of multiple joints, unspecified osteoarthritis type documented in this encounter [facility] note* Diagnosis Recurrent UTI (urinary tract infection)- Primary Urinary tract infection, site not specified Essential hypertension Unspecified essential hypertension Malignant neoplasm of ovary, unspecified laterality (HCC) Aortic stenosis, moderate Aortic valve disorders documented in this encounter [facility] note* Diagnosis Recurrent UTI (urinary tract infection)- Primary Urinary tract infection, site not specified documented in this encounter [facility] note* Diagnosis Essential hypertension, malignant- Primary documented in this encounter [facility] note* Diagnosis Recurrent UTI (urinary tract infection)- Primary Urinary tract infection, site not specified documented in this encounter [facility] note* Diagnosis Takotsubo cardiomyopathy- Primary Takotsubo syndrome documented in this encounter [facility] note* Diagnosis Acute cough Wheezing Pre-op evaluation- Primary Preoperative examination, unspecified Acquired hypothyroidism Unspecified hypothyroidism Essential hypertension Unspecified essential hypertension Gastroesophageal reflux disease without esophagitis Esophageal reflux History of pulmonary embolism Personal history of pulmonary embolism Aortic stenosis, moderate Aortic valve disorders documented in this encounter [facility] course Narrative No data available for this section [facility] Hospital Discharge instructions No data available for this section [facility] Progress note No data available for this section [facility] Reason for referral (narrative)* Outpatient Procedure (Routine) - Pending Review Specialty Diagnoses / Procedures Referred By Bella cobian Referred To Contact [facility] Diagnoses Hypoxia Procedures OXIMETRY WITH AMBULATION NONINVASIVE EAR/PULSE OXIMETRY MULTIPLE DETER Carl Encarnacion MD [address] [place] [address] Res[facility] [place] [address] [place] [id number] Referral ID Status Reason Start Date Expiration Date Visits Requested Visits Authorized [id number] Pending Review Auto-Generat ed Referral 05/01/2022 05/31/2023 1 1 [facility] for referral (narrative)* Diagnostic Procedure Only (Routine) - Closed Specialty Diagnoses / Procedures Referred By Contac t Referred To Contact XR IMAGING Diagnoses Sciatica, right side Fall, subsequent encounter Procedures XR LUMBAR GENERAL 3V AP/LAT/L5-S1 RADEX SPINE LUMBOSACRAL 2/3 VIEWS Kristen Eugene PA-C [address] [id number] Xr Imaging Referral ID Status Reason Start Date Expiration Date V isits Requested Visits Authorized [id number] Closed Auto-Generate d Referral 01/27/2023 02/26/2024 1 1 * Physical Therapy (Routine) - Authorized Specialty Diagnoses / Procedures Referred By Contac t Referred To Contact [facility] Diagnoses Sciatica, right side Fall, subsequent encounter Procedures CONSULT TO PHYSICAL THERAPY PHYSICAL THERAPY EVALUATION HIGH COMPLEX 45 MINS THERAPEUTIC EXERCISES RE, EA 15 MIN. Kristen Eugene PA-C [address] [place] [address] [facility] [address] [address] Referral ID Status Reason Start Date Expiration Date Visits Requested Visits Authorized [id number] Authorized Auto-Generat ed Referral 08/09/2022 08/08/2023 20 20 [facility] for referral (narrative)* Outpatient Procedure (Urgent) - Authorized Specialty Diagnoses / Procedures Referred By Contac t Referred To Contact [facility] Diagnoses Preop examination Procedures ECHO ECHO TTHRC R-T 2D W/WOM-MODE COMPL SPEC&[place] [address] [place] [address] [place] [id number] Referral ID Status Reason Start Date Expiration Date Visits Requested Visits Authorized [id number] Authorized Auto-Generat ed Referral 03/22/2023 03/21/2024 1 1 [facility] for referral (narrative)* Outpatient Procedure (Routine) - Closed Specialty Diagnoses / Procedures Referred By Contac t Referred To Contact [facility] [place] Diagnoses Ovarian mass Preop examination Procedures ECG COMPLETE ECG ROUTINE ECG W/LEAST 12 LDS W/I&R Annmarie Mendoza APRN.PARATRANSIT DRIVER [address] [place] [address] [place] [id number] Referral ID Status Reason Start Date Expiration Date V isits Requested Visits Authorized [id number] Closed Auto-Generate d Referral 03/22/2023 03/21/2024 1 1 [facility] for referral (narrative)* Diagnostic Procedure Only (Routine) - Closed Specialty Diagnoses / Procedures Referred By Contac t Referred To Contact XR IMAGING Diagnoses Sciatica, right side Fall, subsequent encounter Procedures XR LUMBAR GENERAL 3V AP/LAT/L5-S1 RADEX SPINE LUMBOSACRAL 2/3 VIEWS Kristen Eugene PA-C [address] [place] [address] Xr Imaging [facility] Referral ID Status Reason Start Date Expiration Date V isits Requested Visits Authorized [id number] Closed Auto-Generate d Referral 01/27/2023 02/26/2024 1 1 [facility] for referral (narrative)No reason for referral information availableWKettering Health [facility] Work Phone: Reason for visit Narrative* Outpatient Procedure (Routine) - Closed Specialty Diagnoses / Procedures Referred By Contac t Referred To Contact [facility] Diagnoses Ovarian mass Preop examination Procedures ECG COMPLETE ECG ROUTINE ECG W/LEAST 12 LDS W/I&R Annmarie Mendoza, POWDER ROOM ATTENDANT.PARATRANSIT DRIVER [address] [place] [address] [facility] [place] [address] [place] [address] Referral ID Status Reason Start Date Expiration Date V isits Requested Visits Authorized [id number] Closed Auto-Generate d Referral 03/22/2023 03/21/2024 1 1 [facility] for visit Narrative* Diagnostic Procedure Only (Routine) - Closed Specialty Diagnoses / Procedures Referred By Contac t Referred To Contact XR IMAGING Diagnoses Sciatica, right side Fall, subsequent encounter Procedures XR LUMBAR GENERAL 3V AP/LAT/L5-S1 RADEX SPINE LUMBOSACRAL 2/3 VIEWS Kristen Eugene PA-C [address] [place] [address] [place] [address] Referral ID Status Reason Start Date Expiration Date V isits Requested Visits Authorized [id number] Closed Auto-Generate d Referral 01/27/2023 02/26/2024 1 1 [facility] Chief Complaint and Reason for Visit Chief Complaint BACK Chief Complaint BACK LUMBAR 2 KYPHOPLASTY Chief Complaint FALL WITH WEAKNESS, RHABOMYOLYSIS Reason for Visit Fall Generalized weakness Rhabdomyolysis Urinary tract infection Chief Complaint FALL WITH WEAKNESS, RHABOMYOLYSIS FALL WITH WEAKNESS, RHABOMYOLYSIS FALL WITH WEAKNESS, RHABOMYOLYSIS FALL WITH WEAKNESS, RHABOMYOLYSIS Reason for Visit Fall Generalized weakness Rhabdomyolysis Urinary tract infection Chief Complaint Admit Date LABWORK August 07, 2024 5:00am MONTHLY EXAM August 11, 2024 5: 27pm [facility] September 03, 2024 1:00pm MONTHLY EXAM September 12, 2024 8 :04pm [facility] September 14, 2024 5:00am LABWORK September 18, 2024 5:00am LABWORK September 25, 2024 7:00am NEW CONCERN September 27, 2024 2:16pm [facility] September 27 2:30pm LABWORK October 16, 2024 5:0 0am Chief Complaint Admit Date LABWORK August 07, 2024 5:00am MONTHLY EXAM August 11, 2024 5: 27pm [facility] September 03, 2024 1:00pm MONTHLY EXAM September 12, 2024 8 :04pm [facility] September 14, 2024 5:00am LABWORK September 18, 2024 5:00am LABWORK September 25, 2024 7:00am NEW CONCERN September 27, 2024 2:16pm [facility] September 27 2:30pm LABWORK October 16, 2024 5:0 0am MONTHLY EXAM October 19, 2024 9:2 9am LABWORK October 30, 2024 5:0 0am Chief Complaint Admit Date LABWORK August 07, 2024 5:00am MONTHLY EXAM August 11, 2024 5: 27pm [facility] September 03, 2024 1:00pm MONTHLY EXAM September 12, 2024 8 :04pm [facility] September 14, 2024 5:00am LABWORK September 18, 2024 5:00am LABWORK September 25, 2024 7:00am NEW CONCERN September 27, 2024 2:16pm [facility] September 27 2:30pm LABWORK October 16, 2024 5:0 0am MONTHLY EXAM October 19, 2024 9:2 9am LABWORK October 30, 2024 5:0 0am [facility] November 02, 2024 5 :00am Advance Directives No Advanced Directives Records Found Advance Directive Response Recorded Date/ Time Living Will No January 12, 2023 1 0:27am Power of Industrial Custodian No January 12, 2023 10:27am Name of Medical Power of Industrial Custodian ? January 12, 2023 10:26am Advance Directive Response Recorded Date/ Time Living Will No November 23, 2023 8:14am Power of Industrial Custodian No November 22 8:14am Advance Directive Response Recorded Date/ Time Living Will No November 23, 2023 12:55pm Power of Industrial Custodian No November 22 12:55pm Reason for Referral Specialty Diagnoses / Procedures Referred By Bella t Referred To Contact Orthopedics Diagnoses Chronic low back pain with sciatica, sciatica laterality unspecified, unspecified back pain laterality Compression fracture of T11 vertebra, initial encounter (HCC) Procedures CONSULT TO ORTHOPAEDICS OFFICE/OUTPATIENT [facility] 60-74 MINUTES Kristen Eugene PA-C [address] [place] [address] Referral ID Status Reason Start Date Expiration Date Visits Requested Visits Authorized [id number] Pending Review PCP Requested Referral 02/02/2023 02/02/2024 1 1 Specialty Diagnoses / Procedures Referred By Contac t Referred To Contact Pain Management Diagnoses Chronic low back pain with sciatica, sciatica laterality unspecified, unspecified back pain laterality Compression fracture of T11 vertebra, initial encounter ([facility]) Procedures CONSULT TO PAIN MGT OFFICE/OUTPATIENT [facility] 60-74 MINUTES Kristen Eugene PA-C [address] [place] [address] Referral ID Status Reason Start Date Expiration Date Visits Requested Visits Authorized [id number] Pending Review PCP Requested Referral 02/02/2023 02/02/2024 1 1 Specialty Diagnoses / Procedures Referred By Contac t Referred To Contact [facility] Diagnoses Sciatica, right side Falls, subsequent encounter Procedures PT REHAB FOLLOW UP ORDER THERAPEUTIC EXERCISES RE, EA 15 MIN. America Camejo, PT [facility] [place] [address] [place] [address] Referral ID Status Reason Start Date Expiration Date Visits Requested Visits Authorized [id number] Pending Review PCP Requested Referral Auto-Generate d Referral 02/02/2023 05/03/2023 1 1 Specialty Diagnoses / Procedures Referred By Contac t Referred To Contact Diagnoses Ovarian mass Procedures CONSULT TO GYNECOLOGIC/ONCOLOGY OFFICE/OUTPATIENT [facility] 60-74 MINUTES Ely Rico MD [address] [place] [address] Referral ID Status Reason Start Date Expiration Date Visits Requested Visits Authorized [id number] Pending Review PCP Requested Referral Auto-Generate d Referral 03/16/2023 03/15/2024 1 1 Specialty Diagnoses / Procedures Referred By Contac t Referred To Contact Diagnoses 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 (HCC) Procedures CONSULT TO HEMATOLOGY/ONCOLOGY OFFICE/OUTPATIENT [facility] 60-74 MINUTES Annmarie Mendoza APRN.PARATRANSIT DRIVER [address] [place] [address] Wilmar Forbes DO [address] [place] [address] Referral ID Status Reason Start Date Expiration Date Visits Requested Visits Authorized [id number] Pending Review PCP Requested Referral 05/03/2023 05/02/2024 1 1 Specialty Diagnoses / Procedures Referred By Contac t Referred To Contact CT IMAGING Diagnoses Pelvic mass Procedures CT ABD/PEL W IVCON CT ABD & PELVIS W/CONTRAST Carl Encarnacion MD [address] [place] [address] [place] [address] Referral ID Status Reason Start Date Expiration Date V isits Requested Visits Authorized [id number] Closed Auto-Generate d Referral 02/26/2023 03/27/2024 1 1 Specialty Diagnoses / Procedures Referred By Contac t Referred To Contact Diagnoses Osteoarthritis of multiple joints, unspecified osteoarthritis type Kristen Eugene PA-C [address] [place] [address] Referral ID Status Reason Start Date Expiration Date Visits Re quested Visits Authorized [id number] Closed 1 1 Summary Purpose Family History No Family History Records Found No data available for this section No data available for this section No Family History Records Found No data available for this section No data available for this section No data available for this section No Family History Records FoundNo Family History Records FoundNo Family History Records FoundNo Family History Records Found Additional Source Comments Source Comments (unrecognize d section and content) In the event this informatio n is protected by the Federal Confidentiality of Alcohol and Drug Abuse Patient Records regulations: The Federal rules restrict any use of the information to criminally investigate or prosecute any alcohol or drug abuse patient.[facility] the event this information is protected by the Federal Confidentiality of Alcohol and Drug Abuse Patient Records regulations: The Federal rules restrict any use of the information to criminally investigate or prosecute any alcohol or drug abuse patient.[facility]In the event this information is protected by the Federal Confidentiality of Alcohol and Drug Abuse Patient Records regulations: The Federal rules restrict any use of the information to criminally investigate or prosecute any alcohol or drug abuse patient.[facility]In the event this information is protected by the Federal Confidentiality of Alcohol and Drug Abuse Patient Records regulations: The Federal rules restrict any use of the information to criminally investigate or prosecute any alcohol or drug abuse patient.[facility]In the event this information is protected by the Federal Confidentiality of Alcohol and Drug Abuse Patient Records regulations: The Federal rules restrict any use of the information to criminally investigate or prosecute any alcohol or drug abuse patient.[facility]In the event this information is protected by the Federal Confidentiality of Alcohol and Drug Abuse Patient Records regulations: The Federal rules restrict any use of the information to criminally investigate or prosecute any alcohol or drug abuse patient.[facility]In the event this information is protected by the Federal Confidentiality of Alcohol and Drug Abuse Patient Records regulations: The Federal rules restrict any use of the information to criminally investigate or prosecute any alcohol or drug abuse patient.[facility]In the event this information is protected by the Federal Confidentiality of Alcohol and Drug Abuse Patient Records regulations: The Federal rules restrict any use of the information to criminally investigate or prosecute any alcohol or drug abuse patient.[facility]In the event this information is protected by the Federal Confidentiality of Alcohol and Drug Abuse Patient Records regulations: The Federal rules restrict any use of the information to criminally investigate or prosecute any alcohol or drug abuse patient.[facility] HospitalIn the event this information is protected by the Federal Confidentiality of Alcohol and Drug Abuse Patient Records regulations: The Federal rules restrict any use of the information to criminally investigate or prosecute any alcohol or drug abuse patient.[facility] HospitalIn the event this information is protected by the Federal Confidentiality of Alcohol and Drug Abuse Patient Records regulations: The Federal rules restrict any use of the information to criminally investigate or prosecute any alcohol or drug abuse patient.[facility] HospitalIn the event this information is protected by the Federal Confidentiality of Alcohol and Drug Abuse Patient Records regulations: The Federal rules restrict any use of the information to criminally investigate or prosecute any alcohol or drug abuse patient.[facility] HospitalIn the event this information is protected by the Federal Confidentiality of Alcohol and Drug Abuse Patient Records regulations: The Federal rules restrict any use of the information to criminally investigate or prosecute any alcohol or drug abuse patient.[facility] HospitalIn the event this information is protected by the Federal Confidentiality of Alcohol and Drug Abuse Patient Records regulations: The Federal rules restrict any use of the information to criminally investigate or prosecute any alcohol or drug abuse patient.[facility] HospitalIn the event this information is protected by the Federal Confidentiality of Alcohol and Drug Abuse Patient Records regulations: The Federal rules restrict any use of the information to criminally investigate or prosecute any alcohol or drug abuse patient.[facility] HospitalIn the event this information is protected by the Federal Confidentiality of Alcohol and Drug Abuse Patient Records regulations: The Federal rules restrict any use of the information to criminally investigate or prosecute any alcohol or drug abuse patient.[facility] HospitalIn the event this information is protected by the Federal Confidentiality of Alcohol and Drug Abuse Patient Records regulations: The Federal rules restrict any use of the information to criminally investigate or prosecute any alcohol or drug abuse patient.[facility] HospitalIn the event this information is protected by the Federal Confidentiality of Alcohol and Drug Abuse Patient Records regulations: The Federal rules restrict any use of the information to criminally investigate or prosecute any alcohol or drug abuse patient.[facility] HospitalIn the event this information is protected by the Federal Confidentiality of Alcohol and Drug Abuse Patient Records regulations: The Federal rules restrict any use of the information to criminally investigate or prosecute any alcohol or drug abuse patient.[facility] HospitalIn the event this information is protected by the Federal Confidentiality of Alcohol and Drug Abuse Patient Records regulations: The Federal rules restrict any use of the information to criminally investigate or prosecute any alcohol or drug abuse patient.[facility] HospitalIn the event this information is protected by the Federal Confidentiality of Alcohol and Drug Abuse Patient Records regulations: The Federal rules restrict any use of the information to criminally investigate or prosecute any alcohol or drug abuse patient.[facility] HospitalIn the event this information is protected by the Federal Confidentiality of Alcohol and Drug Abuse Patient Records regulations: The Federal rules restrict any use of the information to criminally investigate or prosecute any alcohol or drug abuse patient.[facility] HospitalIn the event this information is protected by the Federal Confidentiality of Alcohol and Drug Abuse Patient Records regulations: The Federal rules restrict any use of the information to criminally investigate or prosecute any alcohol or drug abuse patient.[facility] HospitalIn the event this information is protected by the Federal Confidentiality of Alcohol and Drug Abuse Patient Records regulations: The Federal rules restrict any use of the information to criminally investigate or prosecute any alcohol or drug abuse patient.[facility] HospitalIn the event this information is protected by the Federal Confidentiality of Alcohol and Drug Abuse Patient Records regulations: The Federal rules restrict any use of the information to criminally investigate or prosecute any alcohol or drug abuse patient.[facility] HospitalIn the event this information is protected by the Federal Confidentiality of Alcohol and Drug Abuse Patient Records regulations: The Federal rules restrict any use of the information to criminally investigate or prosecute any alcohol or drug abuse patient.[facility] HospitalIn the event this information is protected by the Federal Confidentiality of Alcohol and Drug Abuse Patient Records regulations: The Federal rules restrict any use of the information to criminally investigate or prosecute any alcohol or drug abuse patient.[facility] HospitalIn the event this information is protected by the Federal Confidentiality of Alcohol and Drug Abuse Patient Records regulations: The Federal rules restrict any use of the information to criminally investigate or prosecute any alcohol or drug abuse patient.[facility] HospitalIn the event this information is protected by the Federal Confidentiality of Alcohol and Drug Abuse Patient Records regulations: The Federal rules restrict any use of the information to criminally investigate or prosecute any alcohol or drug abuse patient.[facility] HospitalIn the event this information is protected by the Federal Confidentiality of Alcohol and Drug Abuse Patient Records regulations: The Federal rules restrict any use of the information to criminally investigate or prosecute any alcohol or drug abuse patient.[facility] HospitalIn the event this information is protected by the Federal Confidentiality of Alcohol and Drug Abuse Patient Records regulations: The Federal rules restrict any use of the information to criminally investigate or prosecute any alcohol or drug abuse patient.[facility] HospitalIn the event this information is protected by the Federal Confidentiality of Alcohol and Drug Abuse Patient Records regulations: The Federal rules restrict any use of the information to criminally investigate or prosecute any alcohol or drug abuse patient.[facility] HospitalIn the event this information is protected by the Federal Confidentiality of Alcohol and Drug Abuse Patient Records regulations: The Federal rules restrict any use of the information to criminally investigate or prosecute any alcohol or drug abuse patient.[facility] HospitalIn the event this information is protected by the Federal Confidentiality of Alcohol and Drug Abuse Patient Records regulations: The Federal rules restrict any use of the information to criminally investigate or prosecute any alcohol or drug abuse patient.[facility] HospitalIn the event this information is protected by the Federal Confidentiality of Alcohol and Drug Abuse Patient Records regulations: The Federal rules restrict any use of the information to criminally investigate or prosecute any alcohol or drug abuse patient.[facility] HospitalIn the event this information is protected by the Federal Confidentiality of Alcohol and Drug Abuse Patient Records regulations: The Federal rules restrict any use of the information to criminally investigate or prosecute any alcohol or drug abuse patient.[facility] HospitalIn the event this information is protected by the Federal Confidentiality of Alcohol and Drug Abuse Patient Records regulations: The Federal rules restrict any use of the information to criminally investigate or prosecute any alcohol or drug abuse patient.[facility] HospitalIn the event this information is protected by the Federal Confidentiality of Alcohol and Drug Abuse Patient Records regulations: The Federal rules restrict any use of the information to criminally investigate or prosecute any alcohol or drug abuse patient.[facility] HospitalIn the event this information is protected by the Federal Confidentiality of Alcohol and Drug Abuse Patient Records regulations: The Federal rules restrict any use of the information to criminally investigate or prosecute any alcohol or drug abuse patient.[facility] HospitalIn the event this information is protected by the Federal Confidentiality of Alcohol and Drug Abuse Patient Records regulations: The Federal rules restrict any use of the information to criminally investigate or prosecute any alcohol or drug abuse patient.[facility] HospitalIn the event this information is protected by the Federal Confidentiality of Alcohol and Drug Abuse Patient Records regulations: The Federal rules restrict any use of the information to criminally investigate or prosecute any alcohol or drug abuse patient.[facility] HospitalIn the event this information is protected by the Federal Confidentiality of Alcohol and Drug Abuse Patient Records regulations: The Federal rules restrict any use of the information to criminally investigate or prosecute any alcohol or drug abuse patient.[facility] HospitalIn the event this information is protected by the Federal Confidentiality of Alcohol and Drug Abuse Patient Records regulations: The Federal rules restrict any use of the information to criminally investigate or prosecute any alcohol or drug abuse patient.[facility] HospitalIn the event this information is protected by the Federal Confidentiality of Alcohol and Drug Abuse Patient Records regulations: The Federal rules restrict any use of the information to criminally investigate or prosecute any alcohol or drug abuse patient.[facility] the event this information is protected by the Federal Confidentiality of Alcohol and Drug Abuse Patient Records regulations: The Federal rules restrict any use of the information to criminally investigate or prosecute any alcohol or drug abuse patient.[facility] HospitalIn the event this information is protected by the Federal Confidentiality of Alcohol and Drug Abuse Patient Records regulations: The Federal rules restrict any use of the information to criminally investigate or prosecute any alcohol or drug abuse patient.[facility] HospitalIn the event this information is protected by the Federal Confidentiality of Alcohol and Drug Abuse Patient Records regulations: The Federal rules restrict any use of the information to criminally investigate or prosecute any alcohol or drug abuse patient.[facility]In the event this information is protected by the Federal Confidentiality of Alcohol and Drug Abuse Patient Records regulations: The Federal rules restrict any use of the information to criminally investigate or prosecute any alcohol or drug abuse patient.[facility] HospitalIn the event this information is protected by the Federal Confidentiality of Alcohol and Drug Abuse Patient Records regulations: The Federal rules restrict any use of the information to criminally investigate or prosecute any alcohol or drug abuse patient.[facility] HospitalIn the event this information is protected by the Federal Confidentiality of Alcohol and Drug Abuse Patient Records regulations: The Federal rules restrict any use of the information to criminally investigate or prosecute any alcohol or drug abuse patient.[facility] HospitalIn the event this information is protected by the Federal Confidentiality of Alcohol and Drug Abuse Patient Records regulations: The Federal rules restrict any use of the information to criminally investigate or prosecute any alcohol or drug abuse patient.[facility] HospitalIn the event this information is protected by the Federal Confidentiality of Alcohol and Drug Abuse Patient Records regulations: The Federal rules restrict any use of the information to criminally investigate or prosecute any alcohol or drug abuse patient.[facility] HospitalIn the event this information is protected by the Federal Confidentiality of Alcohol and Drug Abuse Patient Records regulations: The Federal rules restrict any use of the information to criminally investigate or prosecute any alcohol or drug abuse patient.[facility]In the event this information is protected by the Federal Confidentiality of Alcohol and Drug Abuse Patient Records regulations: The Federal rules restrict any use of the information to criminally investigate or prosecute any alcohol or drug abuse patient.[facility]In the event this information is protected by the Federal Confidentiality of Alcohol and Drug Abuse Patient Records regulations: The Federal rules restrict any use of the information to criminally investigate or prosecute any alcohol or drug abuse patient.[facility] HospitalIn the event this information is protected by the Federal Confidentiality of Alcohol and Drug Abuse Patient Records regulations: The Federal rules restrict any use of the information to criminally investigate or prosecute any alcohol or drug abuse patient.[facility] HospitalIn the event this information is protected by the Federal Confidentiality of Alcohol and Drug Abuse Patient Records regulations: The Federal rules restrict any use of the information to criminally investigate or prosecute any alcohol or drug abuse patient.[facility]In the event this information is protected by the Federal Confidentiality of Alcohol and Drug Abuse Patient Records regulations: The Federal rules restrict any use of the information to criminally investigate or prosecute any alcohol or drug abuse patient.[facility]In the event this information is protected by the Federal Confidentiality of Alcohol and Drug Abuse Patient Records regulations: The Federal rules restrict any use of the information to criminally investigate or prosecute any alcohol or drug abuse patient.[facility]In the event this information is protected by the Federal Confidentiality of Alcohol and Drug Abuse Patient Records regulations: The Federal rules restrict any use of the information to criminally investigate or prosecute any alcohol or drug abuse patient.[facility]In the event this information is protected by the Federal Confidentiality of Alcohol and Drug Abuse Patient Records regulations: The Federal rules restrict any use of the information to criminally investigate or prosecute any alcohol or drug abuse patient.[facility] HospitalIn the event this information is protected by the Federal Confidentiality of Alcohol and Drug Abuse Patient Records regulations: The Federal rules restrict any use of the information to criminally investigate or prosecute any alcohol or drug abuse patient.[facility]In the event this information is protected by the Federal Confidentiality of Alcohol and Drug Abuse Patient Records regulations: The Federal rules restrict any use of the information to criminally investigate or prosecute any alcohol or drug abuse patient.[facility] HospitalIn the event this information is protected by the Federal Confidentiality of Alcohol and Drug Abuse Patient Records regulations: The Federal rules restrict any use of the information to criminally investigate or prosecute any alcohol or drug abuse patient.[facility]In the event this information is protected by the Federal Confidentiality of Alcohol and Drug Abuse Patient Records regulations: The Federal rules restrict any use of the information to criminally investigate or prosecute any alcohol or drug abuse patient.[facility]In the event this information is protected by the Federal Confidentiality of Alcohol and Drug Abuse Patient Records regulations: The Federal rules restrict any use of the information to criminally investigate or prosecute any alcohol or drug abuse patient.[facility] HospitalIn the event this information is protected by the Federal Confidentiality of Alcohol and Drug Abuse Patient Records regulations: The Federal rules restrict any use of the information to criminally investigate or prosecute any alcohol or drug abuse patient.[facility]In the event this information is protected by the Federal Confidentiality of Alcohol and Drug Abuse Patient Records regulations: The Federal rules restrict any use of the information to criminally investigate or prosecute any alcohol or drug abuse patient.[facility] HospitalIn the event this information is protected by the Federal Confidentiality of Alcohol and Drug Abuse Patient Records regulations: The Federal rules restrict any use of the information to criminally investigate or prosecute any alcohol or drug abuse patient.[facility]In the event this information is protected by the Federal Confidentiality of Alcohol and Drug Abuse Patient Records regulations: The Federal rules restrict any use of the information to criminally investigate or prosecute any alcohol or drug abuse patient.[facility] HospitalIn the event this information is protected by the Federal Confidentiality of Alcohol and Drug Abuse Patient Records regulations: The Federal rules restrict any use of the information to criminally investigate or prosecute any alcohol or drug abuse patient.[facility] HospitalIn the event this information is protected by the Federal Confidentiality of Alcohol and Drug Abuse Patient Records regulations: The Federal rules restrict any use of the information to criminally investigate or prosecute any alcohol or drug abuse patient.[facility]In the event this information is protected by the Federal Confidentiality of Alcohol and Drug Abuse Patient Records regulations: The Federal rules restrict any use of the information to criminally investigate or prosecute any alcohol or drug abuse patient.[facility]In the event this information is protected by the Federal Confidentiality of Alcohol and Drug Abuse Patient Records regulations: The Federal rules restrict any use of the information to criminally investigate or prosecute any alcohol or drug abuse patient.[facility]In the event this information is protected by the Federal Confidentiality of Alcohol and Drug Abuse Patient Records regulations: The Federal rules restrict any use of the information to criminally investigate or prosecute any alcohol or drug abuse patient.[facility]In the event this information is protected by the Federal Confidentiality of Alcohol and Drug Abuse Patient Records regulations: The Federal rules restrict any use of the information to criminally investigate or prosecute any alcohol or drug abuse patient.[facility] HospitalIn the event this information is protected by the Federal Confidentiality of Alcohol and Drug Abuse Patient Records regulations: The Federal rules restrict any use of the information to criminally investigate or prosecute any alcohol or drug abuse patient.[facility] Reason for Visit (unrecogniz ed section and content) Reason Comments Results Reason Comments urine culture Reason Onset Date Comments Refill Request 11/28/2021 Reason Comments Follow Up Specialty Diagnoses / Procedures Referred By Contgold t Referred To Contact Family Practice / FAMILY MEDICINE Diagnoses 4 month f/u Procedures 4C EST Kristen Eugene PA-C [address] [place] [address] Carl Encarnacion MD [address] [place] [address] Referral ID Status Reason Start Date Expiration Date V isits Requested Visits Authorized [id number] New Request 12/12/2021 03/12/2022 1 1 Reason Comments Prescription Refills Reason Comments Patient Question Reason Comments returning oxygen Returning oxygen to [facility] Reason Comments Orders Reason Comments patient refused testing Reason Onset Date Comments Refill Request 06/05/2022 Reason Onset Date Comments Refill Request 06/10/2022 Reason Comments F/U 6 months Reason Comments Head Congestion cough,drainage x 2 w eeks Reason Comments Refill Request Reason Onset Date Comments Refill Request 11/06/2022 Reason Comments Back Pain low back pain after fall x wednesday Reason Comments Back Pain Reason Comments Results Reason Comments PT Eval Specialty Diagnoses / Procedures Referred By Contac t Referred To Contact [facility] Diagnoses Sciatica, right side Fall, subsequent encounter Procedures CONSULT TO PHYSICAL THERAPY PHYSICAL THERAPY EVALUATION HIGH COMPLEX 45 MINS THERAPEUTIC EXERCISES RE, EA 15 MIN. Kristen Eugene PA-C [address] [place] [address] [facility] [place] [address] [place] [address] Referral ID Status Reason Start Date Expiration Date Visits Requested Visits Authorized [id number] Authorized Auto-Generat ed Referral 08/09/2022 08/08/2023 20 20 Reason Onset Date Comments Refill Request 02/08/2023 Reason Comments Referral Information Reason Comments Pre op instructions Reason Comments Results Reason Comments Appointment Reason Comments Patient Update Reason Comments Anesthesia Consult Preop evaluation Reason Comments home health calling Reason Comments Post Op Reason Comments Nursing Plan of Care Reason Comments Automotive Engineering Technician - Other Introduction Reason Comments New Patient Specialty Diagnoses / Procedures Referred By Contac t Referred To Contact Diagnoses 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 (HCC) Procedures CONSULT TO HEMATOLOGY/ONCOLOGY OFFICE/OUTPATIENT NEW HIGH MDM 60-74 MINUTES Annmarie Mendoza, POWDER ROOM ATTENDANT.PARATRANSIT DRIVER [address] [place] [address] Wilmar Forbes, [address] [place] [address] Referral ID Status Reason Start Date Expiration Date Visits Requested Visits Authorized [id number] Pending Review PCP Requested Referral 05/03/2023 05/02/2024 1 1 Reason Comments First Time Treatment Education Carboplat in Reason Comments AVS 06/02/23, CHEMO START Reason Onset Date Comments Refill Request 06/07/2023 Reason Comments Automotive Engineering Technician - Other Orders Reason Comments Automotive Engineering Technician - Other C1D1 Post Treat ment Call (Carboplatin) Reason Comments Medication Problem Reason Comments Radiology CT Specialty Diagnoses / Procedures Referred By Contac t Referred To Contact CT IMAGING Diagnoses Pelvic mass Procedures CT ABD/PEL W IVCON CT ABD & PELVIS [place] [address] [place] [id number] [place] [address] Referral ID Status Reason Start Date Expiration Date V isits Requested Visits Authorized [id number] Closed Auto-Generate d Referral 02/26/2023 03/27/2024 1 1 Reason Comments Automotive Engineering Technician - Other Toxicity Check (Carboplatin) Reason Comments Established Patient Reason Onset Date Comments Refill Request 10/07/2023 Reason Comments Hospital Admission Reason Onset Date Comments Refill Request 12/06/2023 Reason Comments [facility]-verbal ordes requeted Reason Comments ER F/U Seen 11/22 at [facility] for fall at home and admitted for Rhabdomyolysis Reason Comments Patient Update from PT [facility] Reason Comments Ext / Discharge Summary Reason Onset Date Comments Refill Request 01/04/2024 Reason Comments OT Update Reason Comments Outside Heart Cath Reason Onset Date Comments Refill Request 02/15/2024 Care Teams (unrecognized sec tion and content) Ribbon Inker Relationship Specialty Start Date End Date Carl Encarnacion MD [address], [place] [id number] PCP - General Family Practice 03/12/15 Ribbon Inker Relationship Specialty Start Date End Date Carl Encarnacion MD [address], [place] [id number] PCP - General Family Practice 03/12/15 Ribbon Inker Relationship Specialty Start Date End Date Carl Encarnacion MD [address] [place] [address] PCP - General Family Practice 03/12/15 Ribbon Inker Relationship Specialty Start Date End Date Carl Encarnacion MD [facility] [place] [address] PCP - General Family Practice 03/12/15 Ribbon Inker Relationship Specialty Start Date End Date Carl Encarnacion MD [address] [place] [address], [place] [address] PCP - General Family Practice 03/12/15 Ribbon Inker Relationship Specialty Start Date End Date Carl Encarnacion MD [address] [place] [address], [place] [address] PCP - General Family Medicine 03/12/15 Ribbon Inker Relationship Specialty Start Date End Date Carl Encarnacion MD [address] [place] [address], [place] [address] PCP - General Family Medicine 03/12/15 Ribbon Inker Relationship Specialty Start Date End Date Carl Encarnacion MD [address] [place] [address], [place] [address] PCP - General Family Medicine 03/12/15 Ribbon Inker Relationship Specialty Start Date End Date Carl Encarnacion MD [address] [place] [address] [place] [address] PCP - General Family Medicine 03/12/15 Ribbon Inker Relationship Specialty Start Date End Date Carl Encarnacion MD [address] [place] [address], [place] [address] PCP - General Family Medicine 03/12/15 Ribbon Inker Relationship Specialty Start Date End Date Carl Encarnacion MD [address] [place] [address], [place] [address] PCP - General Family Medicine 03/12/15 Ribbon Inker Relationship Specialty Start Date End Date Carl Encarnacion MD [address] [facility] [place] [address] PCP - General Family Medicine 03/12/15 Ribbon Inker Relationship Specialty Start Date End Date Carl Encarnacion MD 0 [facility] [place] [address] PCP - General Family Medicine 03/12/15 Ribbon Inker Relationship Specialty Start Date End Date Carl Encarnacion MD 0 [facility] [place] [address] PCP - General Family Medicine 03/12/15 Ribbon Inker Relationship Specialty Start Date End Date Carl Encarnacion MD 0 [facility] [place] [address] PCP - General Family Medicine 03/12/15 Team Status: Active Member Role Status Dates Raciel Zuleta Family Provider Active Dr. Carl Encarnacion MD Primary Care Provider Active Team Status: Inactive Member Role Status Dates Dr. Carl Encarnacion MD Primary Care Provider Active Dr. Abdiel Shaikh , DO Emergency Provider Active Ribbon Inker Relationship Specialty Start Date End Date Carl Encarnacion MD [address] [facility] [place] [address] PCP - General Family Medicine 03/12/15 Ribbon Inker Relationship Specialty Start Date End Date Carl Encarnacion MD 0 [facility] [place] [address] PCP - General Family Medicine 03/12/15 Ribbon Inker Relationship Specialty Start Date End Date Carl Encarnacion MD 0 [facility] [place] [address] PCP - General Family Medicine 03/12/15 Ribbon Inker Relationship Specialty Start Date End Date Carl Encarnacion MD 0 [facility] [place] [address] PCP - General Family Medicine 03/12/15 Ribbon Inker Relationship Specialty Start Date End Date Carl Encarnacion MD [address] [place] [address] PCP - General Family Medicine 03/12/15 Team Status: Inactive Member Role Status Dates Dr. Carl Encarnacion MD Primary Care Provider Active Dr. Abdiel Shaikh DO Attending Provider, Emergency P rovider Active Team Status: Inactive Member Role Status Dates Dr. Carl Encarnacion MD Primary Care Provider Active Dr. Carl Hawkins , Attending Provider, Referring P rovider Active Ribbon Inker Relationship Specialty Start Date End Date Carl Encarnacion MD [address] [place] [address] PCP - General Family Medicine 03/12/15 Ribbon Inker Relationship Specialty Start Date End Date Carl Encarnacion MD [address] [place] [address] PCP - General Family Medicine 03/12/15 Ribbon Inker Relationship Specialty Start Date End Date Carl Encarnacion MD [address] [place] [address] PCP - General Family Medicine 03/12/15 Ribbon Inker Relationship Specialty Start Date End Date Carl Encarnacion MD [address] [place] [address] PCP - General Family Medicine 03/12/15 Ribbon Inker Relationship Specialty Start Date End Date Carl Encarnacion MD [address] [place] [address] PCP - General Family Medicine 03/12/15 Ribbon Inker Relationship Specialty Start Date End Date Carl Encarnacion MD [address] [place] [address] PCP - General Family Medicine 03/12/15 Ribbon Inker Relationship Specialty Start Date End Date Carl Encarnacion MD [address] [place] [address] PCP - General Family Medicine 03/12/15 Ribbon Inker Relationship Specialty Start Date End Date Carl Encarnacion MD [address] [place] [address] PCP - General Family Medicine 03/12/15 Ribbon Inker Relationship Specialty Start Date End Date Carl Encarnacion MD [address] [place] [address] PCP - General Family Medicine 03/12/15 Ribbon Inker Relationship Specialty Start Date End Date Carl Encarnacion MD [address] [place] [address] PCP - General Family Medicine 03/12/15 Ribbon Inker Relationship Specialty Start Date End Date Carl Encarnacion MD [address] [place] [address] PCP - General Family Medicine 03/12/15 Ribbon Inker Relationship Specialty Start Date End Date Carl Encarnacion MD [address] [place] [address] PCP - General Family Medicine 03/12/15 Ribbon Inker Relationship Specialty Start Date End Date Carl Encarnacion MD [address] [place] [address] PCP - General Family Medicine 03/12/15 Ribbon Inker Relationship Specialty Start Date End Date Carl Encarnacion MD [address] [place] [address] PCP - General Family Medicine 03/12/15 Ribbon Inker Relationship Specialty Start Date End Date Carl Encarnacion MD [address] [facility] [place] [address] PCP - General Family Medicine 03/12/15 Ribbon Inker Relationship Specialty Start Date End Date Carl Encarnacion MD [address] [facility] [place] [address] PCP - General Family Medicine 03/12/15 Korin Mantilla RN Specialty Automotive Engineering Technician Oncology 06/07/23 Wilmar Forbes DO [address] [place] [address] Hematology/Oncology 06/07/23 Ribbon Inker Relationship Specialty Start Date End Date Carl Encarnacion MD [address] [facility] [place] [address] PCP - General Family Medicine 03/12/15 Korin Mantilla RN Specialty Automotive Engineering Technician Oncology 06/07/23 Wilmar Forbes DO [address] [place] [address] Hematology/Oncology 06/07/23 Ribbon Inker Relationship Specialty Start Date End Date Carl Encarnacion MD 0 [facility] [place] [address] PCP - General Family Medicine 03/12/15 Korin Mantilla RN Specialty Automotive Engineering Technician Oncology 06/07/23 Wilmar Forbes DO [address] [place] [address] Hematology/Oncology 06/07/23 Ribbon Inker Relationship Specialty Start Date End Date Carl Encarnacion MD [address] [place] [address] PCP - General Family Medicine 03/12/15 Korin Mantilla RN Specialty Automotive Engineering Technician Oncology 06/07/23 Wilmar Forbes DO [address] [place] [address] Hematology/Oncology 06/07/23 Ribbon Inker Relationship Specialty Start Date End Date Carl Encarnacion MD [address] [place] [address] PCP - General Family Medicine 03/12/15 Ribbon Inker Relationship Specialty Start Date End Date Carl Encarnacion MD [address] [place] [address] PCP - General Family Medicine 03/12/15 Ribbon Inker Relationship Specialty Start Date End Date Carl Encarnacion MD [address] [place] [address] PCP - General Family Medicine 03/12/15 Ribbon Inker Relationship Specialty Start Date End Date Carl Encarnacion MD [address] [place] [address] PCP - General Family Medicine 03/12/15 Korin Mantilla RN Specialty Automotive Engineering Technician Oncology 06/07/23 Wilmar Forbes DO [address] [place] [address] Hematology/Oncology 06/07/23 Ribbon Inker Relationship Specialty Start Date End Date Carl Encarnacion MD [address] [place] [address] PCP - General Family Medicine 03/12/15 Korin Mantilla RN Specialty Automotive Engineering Technician Oncology 06/07/23 Wilmar Forbes DO [address] [place] [address] Hematology/Oncology 06/07/23 Ribbon Inker Relationship Specialty Start Date End Date Carl Encarnacion MD [address] [facility] [place] [address] PCP - General Family Medicine 03/12/15 Korin Mantilla RN Specialty Automotive Engineering Technician Oncology 06/07/23 Wilmar Forbes DO [address] [place] [address] Hematology/Oncology 06/07/23 Ribbon Inker Relationship Specialty Start Date End Date Carl Encarnacion MD [address] [facility] [place] [address] PCP - General Family Medicine 03/12/15 Korin Mantilla RN Specialty Automotive Engineering Technician Oncology 06/07/23 Wilmar Forbes DO [address] [place] [address] Hematology/Oncology 06/07/23 Ribbon Inker Relationship Specialty Start Date End Date Carl Encarnacion MD [address] [facility] [place] [address] PCP - General Family Medicine 03/12/15 Korin Mantilla RN Specialty Automotive Engineering Technician Oncology 06/07/23 Wilmar Forbes DO [address] [place] [place] [address] Hematology/Oncology 06/07/23 Team Status: Active Member Role Status Dates Dr. Carl Encarnacion MD Primary Care Provider Active Dr. Smith Ho MD Emergency Provider Active Dr. Kelby Aguilar DO Admit Provider, Attending Provider Active Ribbon Inker Relationship Specialty Start Date End Date Carl Encarnacion MD [address] [facility] [place] [address] PCP - General Family Medicine 03/12/15 Korin Mantilla RN Specialty Automotive Engineering Technician Oncology 06/07/23 Wilmar Forbes DO [address] [place] [address] Hematology/Oncology 06/07/23 Team Status: Active Member Role Status Dates Dr. Carl Encarnacion MD Primary Care Provider Active Dr. Smith Ho MD Emergency Provider Active Dr. Kelby Aguilar DO Admit Provi wood, Attending Provider, Other Provider Active Team Status: Inactive Member Role Status Dates Dr. Carl Encarnacion MD Primary Care Provider Active Dr. Smith Ho MD Emergency Provider Active Dr. Kelby Aguilar DO Admit Provider, Attending Provider Active Ribbon Inker Relationship Specialty Start Date End Date Carl Encarnacion MD [address] [place] [address] PCP - General Family Medicine 03/12/15 Korin Mantilla RN Specialty Automotive Engineering Technician Oncology 06/07/23 Wilmar Forbes DO [address] [place] [address] Hematology/Oncology 06/07/23 Ribbon Inker Relationship Specialty Start Date End Date Carl Encarnacion MD [address] [place] [address] PCP - General Family Medicine 03/12/15 Korin Mantilla RN Specialty Automotive Engineering Technician Oncology 06/07/23 Wilmar Forbes DO [address] [place] [address] Hematology/Oncology 06/07/23 Ribbon Inker Relationship Specialty Start Date End Date Carl Encarnacion MD [address] [facility] [place] [address] PCP - General Family Medicine 03/12/15 Korin Mantilla RN Specialty Automotive Engineering Technician Oncology 06/07/23 Wilmar Forbes DO [address] [place] [address] Hematology/Oncology 06/07/23 Ribbon Inker Relationship Specialty Start Date End Date Carl Encarnacion MD [address] [facility] [place] [address] PCP - General Family Medicine 03/12/15 Korin Mantilla RN Specialty Automotive Engineering Technician Oncology 06/07/23 Wilmar Forbes DO [address] [place] [place] [address] Hematology/Oncology 06/07/23 Ribbon Inker Relationship Specialty Start Date End Date Carl Encarnacion MD [address] [facility] [place] [address] PCP - General Family Medicine 03/12/15 Team Status: Active Member Role Status Dates Dr. Carl Encarnacion MD Primary Care Provider Active Start: August 07, 2024 Lasha VASQUEZ MD Attending Provider Active Start: August 07, 2024 Team Status: Inactive Member Role Status Dates Dr. Carl Encarnacion MD Primary Care Provider Active Start: August 11, 2024 End: August 11, 2024 Savi Tavares FOOD INSPECTOR, FOOD INSPECTOR-C Attending Provider Active Start: August 11, 2024 End: August 11, 2024 Team Status: Active Member Role Status Dates Dr. Carl Encarnacion MD Primary Care Provider Active Start: September 03, 2024 Lasha VASQUEZ MD Attending Provider Active Start: September 03, 2024 Lasha VASQUEZ MD Referring Provider Active Start: September 03, 2024 Team Status: Inactive Member Role Status Dates Dr. Carl Encarnacion MD Primary Care Provider Active Start: September 12, 2024 End: September 12, 2024 Dr. Lasha Pro MD Attending Provider Active Start: September 12, 2024 End: September 12, 2024 Team Status: Active Member Role Status Dates Dr. Carl Encarnacion MD Primary Care Provider Active Start: September 14, 2024 Lasha VASQUEZ MD Attending Provider Active Start: September 14, 2024 Team Status: Active Member Role Status Dates Dr. aCrl Encarnacion MD Primary Care Provider Active Start: September 18, 2024 Lasha VASQUEZ MD Attending Provider Active Start: September 18, 2024 Team Status: Active Member Role Status Dates Dr. Carl Encarnacion MD Primary Care Provider Active Start: September 25, 2024 Lasha VASQUEZ MD Attending Provider Active Start: September 25, 2024 Team Status: Inactive Member Role Status Dates Dr. Carl Encarnacion MD Primary Care Provider Active Start: September 27, 2024 End: September 27, 2024 Savi Tavares NP, FOOD INSPECTOR-C Attending Provider Active Start: September 27, 2024 End: September 27, 2024 Team Status: Active Member Role Status Dates Dr. Carl Encarnacion MD Primary Care Provider Active Start: September 27, 2024 Lasha VASQUEZ MD Attending Provider Active Start: September 27, 2024 Team Status: Inactive Member Role Status Dates Dr. Carl Encarnacion MD Primary Care Provider Active Start: October 16, 2024 End: October 16, 2024 Lasha AVSQUEZ MD Attending Provider Active Start: October 16, 2024 End: October 16, 2024 Team Status: Active Member Role Status Dates Dr. Carl Encarnacion MD Primary Care Provider Active Start: October 30, 2024 Lasha VASQUEZ MD Attending Provider Active Start: October 30, 2024 Team Status: Active Member Role Status Dates Dr. Carl Encarnacion MD Primary Care Provider Active Start: November 02, 2024 Lasha VASQUEZ MD Attending Provider Active Start: November 02, 2024 Team Status: Inactive Member Role Status Dates Dr. Carl Encarnacion MD Primary Care Provider Active Start: October 19, 2024 End: October 19, 2024 DANIELLE Mejia Attending Provider Active St art: October 19, 2024 End: October 19, 2024 Team Status: Inactive Member Role Status Dates Dr. Carl Encarnacion MD Primary Care Provider Active Start: October 30, 2024 End: October 30, 2024 Lasha VASQUEZ MD Attending Provider Active Start: October 30, 2024 End: October 30, 2024 Team Status: Inactive Member Role Status Dates Dr. Carl Encarnacion MD Primary Care Provider Active Start: November 02, 2024 End: November 02, 2024 Lasha VASQUEZ MD Attending Provider Active Start: November 02, 2024 End: November 02, 2024 Goals (unrecognized section and content) Goals may be documented in a n alternate sectionGoals may be documented in an alternate section No data available for this sectionGoals may be documented in an alternate section No data available for this section No data available for this section No data available for this section No data available for this sectionGoals may be documented in an alternate sectionGoals may be documented in an alternate sectionGoals may be documented in an alternate section INFORMATION SOURCE (unrecogn ized section and content) DATE CREATED AUTHOR 03/25/2023 [facility] DATE CREATED AUTHOR AUTHOR'S ORGANIZ ATION 01/22/2024 [facility] DATE CREATED AUTHOR AUTHOR'S ORGANIZ ATION 03/27/2024 [facility] DATE CREATED AUTHOR AUTHOR'S ORGANIZ ATION 04/06/2024 [facility] DATE CREATED AUTHOR AUTHOR'S ORGANIZ ATION 08/21/2024 [facility] DATE CREATED AUTHOR AUTHOR'S ORGANIZ ATION 01/04/2025 [facility] FOR RECORDS PERTAINING TO PATIENTS WHO ARE OR HAVE BEEN ENROLLED IN A CHEMICAL DEPENDENCY/SUBSTANCEABUSE PROGRAM, SOME INFORMATION MAY BE OMITTED. This clinical summary was aggregated from multiple sources. Caution should be exercised in using it in the provision of clinical care. This summary normalizes information from multiple sources, and as a consequence, information in this document may materially change the coding, format and clinical context of patient data. In addition, data may be omitted in some cases. CLINICAL DECISIONS SHOULD BE BASED ON THE PRIMARY CLINICAL RECORDS. [facility]. provides no warranty or guarantee of the accuracy or completeness of information in this document.
--- OUTSIDE RECORDS SUMMARY | 2025-01-18 04:34 | XMS RPT_ITS | CCD ---
Author Organization [facility] Care Team Providers Care Grease Maker Head Name Role Phone Carl Encarnacion MD Primary Care Provider [phone] Carl Encarnacion MD Primary Care Provider [phone] Jose Rafael RN, Korin Unavailable Unavailable Wilmar Forbes DO Unavailable JAKE MOREJON, EKATERINA Rhodes Primary Care Physician Dr. Carl Encarnacion Primary Care Provider Dr. Smith Ho Emergency Provider Dr. Kelby Aguilar Admit Provider Dr. Kelby Aguilra Attending Provider [phone] Dr. Kelby Aguilar Other Provider Carl Encarnacion MD Primary Care Provider DARCI MSN, TELEGRAPH OPERATOR, [facility] Primary Care Physici an Carl Encarnacion MD Primary Care Provider ELIOT CASTILLO Admitting Unavailable CARL ENCARNACION Primary [...] Care Unavailable ALEJANDRA, CARL A Attending Unavailable MICK EUGENEE Referring Unavailable ALEJANDRA, CARL A Primary [...] USMAN Jorge Admitting Unavail able SUPPAN MSN, TELEGRAPH OPERATOR, ESTER Primary Care Unav ailable PLUNK DO, ANNELIESE Attending Unavailable AMADEO MOREJON FACP, USMAN Jorge Admitting Unavail able SUPPAN MSN, TELEGRAPH OPERATOR, ESTER Primary Care Unav ailable PLUNK DO, ANNELIESE Attending Unavailable CARL ENCARNACION MD Attending Unavailable SUPPAN MSN, TELEGRAPH OPERATOR, ESTER Primary Care Unav ailable PLUNK DOANNELIESE Admitting Unavailable SUPPAN MSN, TELEGRAPH OPERATOR, ESTER Primary Care Unav ailable ESTELA VICENTE MD, DR LINDA HONEYCUTT Consulting Unavaila addison PHIPPS MD, DRE Attending Unavailable SANDHYA MOREJON, CANDIDA Consulting Unavailable NUHA MOREJON, DR MARION Consulting Donaldo DANG MD, CIPRIANO Consulting Unavailable ASHOK WALLER MD, DR RAYMUNDO Attending UnaMINISTERIO Hoang MD Primary Care Unavailable ASHOK WALLER MD, DR RAYMUNDO Attending Unav EKATERINA Moreira MD Primary Care Unavailable GLADYS FERNANDEZ-KACI, STEFANO Prather Admitting Unavai layton BEJARANO MSN, TELEGRAPH OPERATOR, [facility] Primary Care Unav ailable ANNELIESE CHAIREZ DO Attending Unavailable ASHOK WALLER MD, DR RAYMUNDO Attending Unav ailable DARCI MSN, TELEGRAPH OPERATOR, [facility] Care Unav wayne Encarnacion MD, Dr. Mtzrey Primary Care Provider Lasha Pro MD Attending Provider Unavaildavid Tavares PLASTICS TOOLING ENGINEER-CSavi Attending Provider Lasha Pro MD Referring Provider Unavaildavid Pro MD, Dr. Colby Attending Provider Jim Valentin Attending Provider [phone] Koram, Marilee Michelle Admitting Unavailable Hector Anderson Consulting Unavailable [facility], Carl Primary Care Unavailable Marilee Avitia Attending [...] Unavailable Alejandra, Carl Primary Care Unavailable Monica, [place] Attending Unavailable Alejandra, Carl Primary Care Unavailable [place] PLASTICS TOOLING ENGINEER, Savi Attending Unavailable Alejandra, Carl Primary Care Unavailable [place] PLASTICS TOOLING ENGINEER, Savi Attending Unavailable Alejandra, Carl Primary Care Unavailable Juan Rton PLASTICS TOOLING ENGINEER, Savi Attending Unavailable Alejandra, Carl Primary Care Unavailable Juan Rton PLASTICS TOOLING ENGINEER, Savi Attending Unavailable Alejandra, Carl Primary Care Unavailable Alejandra, Carl Referring Unavailable Ronen Espinoza Attending Unavailable Alejandra, Carl Primary Care Unavailable Sujata Mejia Attending Unavailable Alejandra, Carl Primary Care Unavailable [place] PLASTICS TOOLING ENGINEER, Savi Attending Unavailable Alejandra, Carl Primary Care Unavailable Koram, Marilee Michelle Attending Unavailable Monica, [place] Consulting Unavailable Alejandra, Carl Primary Care Unavailable Koram, Marilee Michelle Admitting Unavailable Koram, Marilee Michelle Consulting Unavailable [place] PLASTICS TOOLING ENGINEER, Savi Attending Unavailable Alejandra, Carl Primary Care Unavailable Oleghe, Efewongbe Attending Unavailable Alejandra, Carl Primary Care Unavailable Oleghe, Efewongbe Attending Unavailable Alejandra, Carl Primary Care Unavailable Jim Valentin Attending Unavailable Alejandra, Carl Primary Care Unavailable Alejandra, Carl Primary Care Unavailable Oleghe, Efewongbe Attending Unavailable [place] PLASTICS TOOLING ENGINEER, Savi Attending Unavailable [facility] Unavailable Jean PLASTICS TOOLING ENGINEER, Radha Attending Unavailable [facility] Unavailable [place], [place] Referring Unavailable Monica Hector Attending Unavailable [facility] Unavailable Anusha PLASTICS TOOLING ENGINEER, Savi Attending Unavailable [facility] Unavailable Oleghe OLS, Efewongbe Attending Unavailabl e [facility] Unavailable Oleghe OLS, Efewongbe Attending Unavailabl e [facility] Unavailable Oleghe OLS, Efewongbe Referring Unavailabl e Oleghe OLS, Efewongbe Attending [facility]ailabl e [facility] Oleghe OLS, Efewongbe Attending Unavailabl e [facility] Unavailable Oleghe OLS, Efewongbe Attending Unavailabl e [facility] Unavailable Oleghe OLS, Efewongbe Attending Unavailabl e [facility] Unavailable Oleghe OLS, Efewongbe Attending Unavailabl e [facility]Win[facility] Unavailable Allergies Allergy Classification Reported Allergen(s) Allergy Type Date of Onset Reaction(s) Facility NITROFURANTOIN, MACROCRYSTALS / Nitrofurantoin, Monohydrate (4 sources) NITROFURANTOIN, MACROCRYSTALS / Nitrofurantoin, Monohydrate; Translations: [nitrofurantoin] Drug Allergy 3 GI Upset, Upset stomach (finding) [facility] Work Phone: (20 sources) NITROFURANTOIN, MACROCRYSTALS / Nitrofurantoin, Monohydrate; Translations: [nitrofurantoin] Drug Allergy 3 GI Upset, Upset stomach (finding) [facility] Work Phone: (3 sources) Ciprofloxacin Drug Allergy 4 nausea and felt loopy [facility] (3 sources) Nitrofurantoin Drug Allergy 4 Vomiting [facility] Comment on above: GI upset, nausea, vo miting and diarrhea. (1 source) Ciprofloxacin Drug Allergy 5 [facility] Repository (1 source) Nitrofurantoin Drug Allergy 5 [facility] Repository Medications Current Medications Medication Drug Class(es) [...] Comment on above: Take 1 capsule by [facility] twice daily as needed. 0.4 ml enoxaparin [...] Ordered Start: 05-09-2021 take 1 tablet by [facility] once daily Multivitamin Active 1 TABLET PO [...] Comment on above: Take 1 capsule by [facility] twice daily with meals for 7 days. omeprazole 20 mg delayed release oral capsule (20 sources) Proton Pump Inhibitor Start: 07-15-2020 End: 02-08-2023 take 1 capsule by mouth once daily Omeprazole 20 mg Capsule,Delayed Release(Dr/Ec) Active 20 mg PO DAILY May 09, 2021 12:00am Comment on above: Take 1 capsule by [facility] once daily. perflutren lipid microspheres 1.3 mL [...] with food. Take 2 tablets by [facility] once daily for 5 days. Take 4 [...] (For chemotherapy induced nausea and vomiting). sennosides, shelter 8.6 mg oral tablet (1 source) Start: [...] Comment on above: Take 1,000 mcg by [facility] once daily. Vitamin D3 (1 source) Start: [...] 6 hours as needed. polyethylene glycol 3350 03480 mg powder for oral solution (9 sources) [...] (3 sources) Drug therapy finding; Translations: [Other [facility] (current) drug therapy] Onset: 08-28-2016 05-10-2018 Episodic Other aftercare (20 sources) Patient encounter status; Translations: [Other [facility] (current) drug therapy] Onset: 02-26-2017 09-20-2018 Episodic Other aftercare (1 source) Other [facility] (current) drug therapy; Translations: [Medication management] Onset: [...] 12-04-2024 HIP, UNI W/ Pelvis 2-3 Views [facility] [address] [place] [id number] HIP, UNI W/ Pelvis 2-3 Views MR#: [id number] Acct: [id number] Name: STEFANO WASHINGTON Rep #: [id number] : 1940 F 84 From: Cheryl Davies PCP: Dr. Carl Encarnacion MD Status: DEP AMB Study: HIP, UNI W/ Pelvis 2-3 Views Date of Exam: Exam# [id number] Ordering Dr: Ronen Espinoza DO PROCEDURE: HIP, [...] Mild arthritic changes are seen. Reading Location: [id number] CC: Dr. Carl Encarnacion MD; Dr. Ronen Espinoza DO Imaging Engineer: Signed Normal [facility] Orthopedic Visit Reporton Orthopedic Visit Report [facility] [address] [place] [address] [address] [place] [address] OFFICE VISIT Date of Service: 12/04/24 MR#: [id number] Acct: [id number] Name: STEFANO WASHINGTON Rep #: [id number] : 1940 Provider: Dr. Ronen winston DO Age/Sex: 84/F Location: [facility] Status: Signed Intake Vital Signs 03/14/24 14:51 [...] stenosis UTI (urinary tract infection) Non-ST elevation [place] (NSTEMI) Hypertension Chronic pain Rheumatoid arthritis Former [...] help with the flare. Patient is at [facility], they will fill that prescription for the Medrol Dosepak as directed (more content not included)... Normal [facility] Vitamin B12 ser/plasOrdered By: Lasha Pro on 11-02-2024 Cobalamin (Vitamin B12) [Mass/Vol] 412 pg/mL 180-914 [facility] Calculated very low density lipoprotein (VLDL) cholesterol measurementOrdered By: Lasha Pro on 10-30-2024 VLDL Cholesterol 23 mg/dL 5-40 [facility] LDL calc ser/plasOrdered By: Lasha Pro on 10-30-2024 LDL Cholesterol, Calculated 47 mg/dL [facility] Comment on above: Rubmkisqld=147-347 m g/dL & Higher Czjn=637 mg/dL or greater Screening total cholesterol/ high density lipoprotein (HDL) cholesterol ratioOrdered By: Lasha Pro on 10-30-2024 Cholesterol.total/Chol esterol in HDL [Mass ratio] 2.22 {ratio} [facility] Serum or plasma cholesterol in HDL measurement (mass/volume)Ordered By: Lasha Pro on 10-30-2024 Cholesterol in HDL [Mass/Vol] 58 mg/dL >40 [facility] Comment on above: National Cholesterol Education Program (NCEP) guidelines:<40 mg/dL: Low HDL-cholesterol (major risk factor for CHD)>= 60 mg/dL: High HDL-cholesterol (negative risk factor for CHD)HDL-cholesterol is affected by a number of factors, e.g. smoking, exercise, hormones, sex and age. Serum or plasma cholesterol measurement (mass/volume)Ordered By: Lasha Pro on 10-30-2024 Cholesterol [Mass/Vol] 129 mg/dL <[address] [facility] Comment on above: Cholesterol level, D esirable <200 mg/dLBorderline high cholesterol 200-239 mg/dLHigh cholesterol >=240 mg/dLRecommendations of the NCEP Adult Treatment Panel for the following risk-cutoff thresholds for the [place] population. TSH DL <= 0.005 mIU/L QnOrde red By: Lasha Pro on 10-30-2024 Thyroid Stimulating Hormone (TSH) 0.870 uIU/mL 0.300-4.20 0 [facility] Triglycerides measurementOrd ered By: Lasha Pro on 10-30-2024 Triglyceride [Mass/Vol] 117 mg/dL <199 [facility] Comment on above: The drugs N-Acetylcy steine and Metamizole may falsely depress this assay. Normal range: <150 mg/dLBorderline High: 150-199 mg/dLHigh: 200-499 mg/dLVery High: >500 mg/dL Absolute neutrophil countOrd ered By: Lasha Pro on 10-16-2024 Neutrophils (Bld) [#/Vol] 1.4 10*3/uL Low 2.0-7.7 [facility] Anion gap in Serum or Plasma Ordered By: Lasha Pro on 10-16-2024 Anion gap [Moles/Vol] 13 mmol/L 5-15 [facility] BUN/creatinine ratioOrdered By: Lasha Pro on 10-16-2024 Urea nitrogen/Creatinine [Mass ratio] 22.3 mg/mg High 10-20 [facility] Basophil percentageOrdered B y: Lasha Pro on 10-16-2024 Basophils/100 WBC (Bld) 1.7 % High 0-1 [facility] Bilirubin directOrdered By: Lasha Pro on 10-16-2024 Bilirubin.direct [Mass/Vol] 0.20 mg/dL 0.00-0.30 [facility] Bilirubin, totalOrdered By: Lasha Pro on 10-16-2024 Bilirubin [Mass/Vol] 0.34 mg/dL 0.00-1.30 [facility] Carbon dioxide, total [Moles /volume] in Central venous bloodOrdered By: Lasha Pro on 10-16-2024 CO2 [Moles/Vol] 22.7 mmol/L 21.0-32.0 [facility] Chloride assayOrdered By: Brittany Pro on 10-16-2024 Chloride [Moles/Vol] 107 mmol/L 98-108 [facility] Eosinophil percentageOrdered By: Lasha Pro on 10-16-2024 Eosinophils/100 WBC (Bld) 5.0 % 0-5 [facility] Erythrocyte distribution wid th (RBC) [Ratio]Ordered By: Lasha Pro on 10-16-2024 Erythrocyte distribution width (RBC) [Entitic vol] 52.4 fL High 35.1-43.9 [facility] Erythrocyte distribution wid th ratioOrdered By: Lasha Pro on 10-16-2024 Erythrocyte distribution width (RBC) [Ratio] 13.8 % 11.6-14.6 [facility] GFR/1.73 sq M.predicted gianna g non-blacks MDRD (S/P/Bld) [Vol rate/Area]Ordered By: Lasha Pro on 10-16-2024 Estimated GFR (MDRD) Non-Af Amer 84 >60 [facility] Comment on above: mL/min/1.73m2 CKD-EP I Creatinine Equation (2020) Hematocrit Auto (Bld) [Volum e fraction]Ordered By: Lasha Pro on 10-16-2024 Hematocrit (Bld) [Volume fraction] 34.4 % Low 37-47 [facility] Hemoglobin measurementOrdere d By: Lasha Pro on 10-16-2024 Hemoglobin (Bld) [Mass/Vol] 10.8 g/dL Low 12.0-15.0 [facility] Immature granulocytes/100 WB C Auto (Bld)Ordered By: Lasha Pro on 10-16-2024 Immature granulocytes/100 WBC (Bld) 0.300 % 0.0-0.9 [facility] Comment on above: IG% - Immature Granu locytes (promyelocytes, myelocytes and metamyelocytes) > 1% indicates that a LEFT SHIFT is Present. Laboratory - Chemistry and C hemistry - challengeOrdered By: Lasha Pro on 10-16-2024 AST [Catalytic activity/Vol] 17 U/L <32 [facility] Lymphocytes Auto (Unsp spec) [#/Vol]Ordered By: Lasha Pro on 10-16-2024 Lymphocytes (Bld) [#/Vol] 1.11 10*3/uL 0.83-4.51 [facility] Lymphocytes/100 WBC Auto (Un sp spec)Ordered By: Lasha Pro on 10-16-2024 Lymphocytes/100 WBC (Bld) 36.6 % 19-41 [facility] MCV (mean corpuscular volume ) determinationOrdered By: Lasha Pro on 10-16-2024 MCV (RBC) [Entitic vol] 102.7 fL High 81-99 [facility] Mean corpuscular hemoglobin (MCH) determinationOrdered By: annmarie Pro on 10-16-2024 MCH (RBC) [Entitic mass] 32.2 pg High 27.0-32.0 [facility] Mean corpuscular hemoglobin concentration (MCHC) determinationOrdered By: Lasha Pro on 10-16-2024 MCHC (RBC) [Mass/Vol] 31.4 g/dL Low 32-36 [facility] Mean platelet volume determi nationOrdered By: Lasha Pro on 10-16-2024 Platelet mean volume (Bld) [Entitic vol] 10.3 fL 6.2-12.0 [facility] Monocyte percentageOrdered B y: Lasha Pro on 10-16-2024 Monocytes/100 WBC (Bld) 11.9 % High 0-10 [facility] Neutrophil percentageOrdered By: Lasha Pro on 10-16-2024 Neutrophils/100 WBC (Bld) 44.5 % Low 47-70 [facility] Nucleated red blood cell per centageOrdered By: Lasha Pro on 10-16-2024 Nucleated RBC/100 WBC (Bld) [Ratio] 0 % 0-5 [facility] Platelet countOrdered By: Brittany Pro on 10-16-2024 Platelets (Bld) [#/Vol] 162 10*3/uL 150-450 [facility] Potassium (Unsp spec) [Mass/ Vol]Ordered By: Lasha Pro on 10-16-2024 Potassium [Moles/Vol] 3.9 mmol/L 3.3-5.1 [facility] RBC Auto (Bld) [#/Vol]Ordere d By: Lasha Pro on 10-16-2024 RBC (Bld) [#/Vol] 3.35 10*6/uL Low 4.2-5.4 [facility] Serum creatinine measurement (mass/volume)Ordered By: Lasha Pro on 10-16-2024 Creatinine [Mass/Vol] 0.70 mg/dL 0.70-1.20 [facility] Serum globulin measurementOr dered By: Lasha Pro on 10-16-2024 Globulin (S) [Mass/Vol] 2.9 g/dL 2.2-4.2 [facility] Serum glucose measurement (m ass/volume)Ordered By: Lasha Pro on 10-16-2024 Glucose [Mass/Vol] 83 mg/dL 70-[address] [facility] Serum or plasma alanine valdez otransferase (ALT) measurementOrdered By: Lasha Pro on 10-16-2024 ALT [Catalytic activity/Vol] 6 U/L <35 [facility] Serum or plasma albumin nina urement (mass/volume)Ordered By: Lasha Pro on 10-16-2024 Albumin [Mass/Vol] 3.6 g/dL 3.4-4.[address] [facility] Serum or plasma albumin/glob ulin mass ratioOrdered By: Lasha Pro on 10-16-2024 Albumin/Globulin [Mass ratio] 1.2 {ratio} 0.9-2.4 [facility] Serum or plasma alkaline adelaide sphatase measurementOrdered By: Lasha Pro on 10-16-2024 ALP [Catalytic activity/Vol] 64 U/L 35-104 [facility] Serum or plasma calcium nina urement (mass/volume)Ordered By: Lasha Pro on 10-16-2024 Calcium [Mass/Vol] 8.9 mg/dL 7.6-11.[address] [facility] Serum or plasma urea nitroge n measurement (mass/volume)Ordered By: Lasha Pro on 10-16-2024 Urea nitrogen [Mass/Vol] 16 mg/dL 4-19 [facility] Serum phosphorus measurement Ordered By: Lasha Pro on 10-16-2024 Phosphorus Level 3.2 mg/dL 2.7-4.5 [facility] Sodium levelOrdered By: Tenzin alstonjocelyne Morteza on 10-16-2024 Sodium [Moles/Vol] 142 mmol/L 133-[address] [facility] Total proteinOrdered By: Maikel alexsanderphilip Pro on 10-16-2024 Protein [Mass/Vol] 6.5 g/dL 5.9-8.[address] [facility] White blood cell (WBC) count Ordered By: Lasha Pro on 10-16-2024 WBC (Bld) [#/Vol] 3.0 10*3/uL Low 4.4-11.[address] [facility] Bilirubin Test strip Ql (U)O rdered By: Savi Tavares on 09-27-2024 Bilirubin Ql (U) Negative Negative [facility] Glucose Ql (U)Ordered By: Angel Tavares on 09-27-2024 Urine Glucose (UA) Normal mg/dl Normal [facility] Ketones Test strip Ql (U)Ord ered By: Savi Tavares on 09-27-2024 Ketones Ql (U) Negative Negative [facility] Nitrite Test strip Ql (U)Ord ered By: Savi Tavares on 09-27-2024 Nitrite Ql (U) Negative Negative [facility] Protein Test strip Ql (U)Ord ered By: Savi Tavares on 09-27-2024 Protein Ql (U) 30 mg/dl High Negative [facility] Urine blood detectionOrdered By: Savi Tavares on 09-27-2024 Urine Occult Blood 25 /ul High Negative [facility] Urine clarityOrdered By: Raheem Tavares on 09-27-2024 Clarity (U) Sl. Cloudy Clear [facility] Urine color determinationOrd ered By: Savi Tavares on 09-27-2024 Color (U) Yellow Yellow [facility] Urine cultureOrdered By: Maikel Pro on 09-27-2024 Bacteria identified Cx Nom (U) Culture exhibits no growth. [facility] Urine leukocyte esterase det ection by dipstickOrdered By: Savi Tavares on 09-27-2024 Leukocyte esterase Test strip Ql (U) 500 /ul High Negative [facility] Urine pHOrdered By: Savi Tavares on 09-27-2024 pH (U) 6.0 [pH] 5.0 - 8.0 [facility] Urine specific gravity measu rementOrdered By: Savi Tavares on 09-27-2024 Specific gravity (U) [Rel density] 1.010 1.002-1.03 0 [facility] Urobilinogen Ql (U)Ordered B y: Savi Tavares on 09-27-2024 Urine Urobilinogen Normal mg/dl Normal [facility] Bilirubin Test strip Ql (U)O rdered By: Lasha Pro on 09-25-2024 Bilirubin Ql (U) Negative Negative [facility] Glucose Ql (U)Ordered By: Brittany Pro on 09-25-2024 Urine Glucose (UA) Normal mg/dl Normal [facility] Ketones Test strip Ql (U)Ord ered By: Lasha Pro on 09-25-2024 Ketones Ql (U) Negative Negative [facility] Nitrite Test strip Ql (U)Ord ered By: Lasha Pro on 09-25-2024 Nitrite Ql (U) Negative Negative [facility] Protein Test strip Ql (U)Ord ered By: Lasha Pro on 09-25-2024 Protein Ql (U) 15 mg/dl High Negative [facility] Urine blood detectionOrdered By: Lasha Pro on 09-25-2024 Urine Occult Blood 25 /ul High Negative [facility] Urine clarityOrdered By: Miakel Pro on 09-25-2024 Clarity (U) Sl. Cloudy Clear [facility] Urine color determinationOrd ered By: Lasha Pro on 09-25-2024 Color (U) Yellow Yellow [facility] Urine cultureOrdered By: Maikel Pro on 09-25-2024 Bacteria identified Cx Nom (U) Positive Abnormal [facility] Urine leukocyte esterase det ection by dipstickOrdered By: Lasha Pro on 09-25-2024 Leukocyte esterase Test strip Ql (U) 500 /ul High Negative [facility] Urine pHOrdered By: Jennie Pro on 09-25-2024 pH (U) 6.5 [pH] 5.0 - 8.0 [facility] Urine specific gravity measu rementOrdered By: Lasha Pro on 09-25-2024 Specific gravity (U) [Rel density] 1.005 1.002-1.03 0 [facility] Urobilinogen Ql (U)Ordered B y: Lasha Pro on 09-25-2024 Urine Urobilinogen Normal mg/dl Normal [facility] TSH QnOrdered By: Lasha Pro on 09-18-2024 Thyroid Stimulating Hormone (TSH) 0.307 uIU/mL Low 0.358-3.74 0 [facility] Bilirubin Test strip Ql (U)O rdered By: Lasha Pro on 09-14-2024 Bilirubin Ql (U) Negative Negative [facility] Glucose Ql (U)Ordered By: Brittany Por on 09-14-2024 Urine Glucose (UA) Normal mg/dl Normal [facility] Ketones Test strip Ql (U)Ord ered By: Lasha Pro on 09-14-2024 Ketones Ql (U) Negative Negative [facility] Nitrite Test strip Ql (U)Ord ered By: Lasha Pro on 09-14-2024 Nitrite Ql (U) Positive High Negative [facility] Protein Test strip Ql (U)Ord ered By: Lasha Pro on 09-14-2024 Protein Ql (U) 15 mg/dl High Negative [facility] TSH QnOrdered By: Lasha Pro on 09-14-2024 Thyroid Stimulating Hormone (TSH) 0.734 uIU/mL 0.358-3.74 0 [facility] Urine blood detectionOrdered By: Lasha Pro on 09-14-2024 Urine Occult Blood 25 /ul High Negative [facility] Urine clarityOrdered By: Maikel Pro on 09-14-2024 Clarity (U) Sl. Cloudy Clear [facility] Urine color determinationOrd ered By: Lasha Pro on 09-14-2024 Color (U) Yellow Yellow [facility] Urine cultureOrdered By: Maikel Pro on 09-14-2024 Bacteria identified Cx Nom (U) ESBL Escherichia coli Abnormal [facility] Urine leukocyte esterase det ection by dipstickOrdered By: Lasha Pro on 09-14-2024 Leukocyte esterase Test strip Ql (U) 500 /ul High Negative [facility] Urine pHOrdered By: Jennie Pro on 09-14-2024 pH (U) 6.5 [pH] 5.0 - 8.0 [facility] [facility] Urine specific gravity measu rementOrdered By: Lasha Pro on 09-14-2024 Specific gravity (U) [Rel density] 1.010 1.002-1.03 0 [facility] Urobilinogen Ql (U)Ordered B y: Lasha Pro on 09-14-2024 Urine Urobilinogen Normal mg/dl Normal [facility] Bilirubin Test strip Ql (U)O rdered By: Lasha Pro on 09-03-2024 Bilirubin Ql (U) Negative Negative [facility] Epithelial cells.squamous LM Ql (Urine sed)Ordered By: Lasha Pro on 09-03-2024 Epithelial cells.squamous LM.HPF (Urine sed) [#/Area] 5 /[HPF] 5-10 [facility] Glucose Ql (U)Ordered By: Brittany Pro on 09-03-2024 Urine Glucose (UA) Normal mg/dl Normal [facility] Ketones Test strip Ql (U)Ord ered By: Lasha Pro on 09-03-2024 Ketones Ql (U) Negative Negative [facility] Microscopic analysis of urin e for red blood cells (RBC)Ordered By: Lasha Pro on 09-03-2024 Urine RBC 0-5 SEEN /hpf 0-5 [facility] Mucus LM Ql (Urine sed)Order ed By: Lasha Pro on 09-03-2024 Mucus Ql (Urine sed) 0 SEEN /hpf [facility] Nitrite Test strip Ql (U)Ord ered By: Lasha Pro on 09-03-2024 Nitrite Ql (U) Positive High Negative [facility] Protein Test strip Ql (U)Ord ered By: Lasha Pro on 09-03-2024 Protein Ql (U) 30 mg/dl High Negative [facility] Transitional cells LM Ql (Ur ine sed)Ordered By: Lasha Pro on 09-03-2024 Urine Transitional Epithelial Cells 0-5 SEEN /hpf 0-5 [facility] Urine blood detectionOrdered By: Lasha Pro on 09-03-2024 Urine Occult Blood 25 /ul High Negative [facility] Urine clarityOrdered By: Maikel Pro on 09-03-2024 Clarity (U) Sl. Cloudy Clear [facility] Urine color determinationOrd ered By: Lasha Pro on 09-03-2024 Color (U) Yellow Yellow [facility] Urine cultureOrdered By: Maikel Pro on 09-03-2024 Bacteria identified Cx Nom (U) Mixed Gram Pos & Gram Neg Org Abnormal [facility] Urine leukocyte esterase det ection by dipstickOrdered By: Lasha Pro on 09-03-2024 Leukocyte esterase Test strip Ql (U) 500 /ul High Negative [facility] Urine pHOrdered By: Jennie Pro on 09-03-2024 pH (U) 6.0 [pH] 5.0 - 8.0 [facility] Urine sediment bacteria coun t by microscopy (number/high power field)Ordered By: Lasha Pro on 09-03-2024 Bacteria LM.HPF (Urine sed) [#/Area] 0 /[HPF] None Seen [facility] Urine specific gravity measu rementOrdered By: Lasha Pro on 09-03-2024 Specific gravity (U) [Rel density] 1.015 1.002-1.03 0 [facility] Urobilinogen Ql (U)Ordered B y: Lasha Pro on 09-03-2024 Urine Urobilinogen Normal mg/dl Normal [facility] White blood cell countOrdere d By: Lasha Pro on 09-03-2024 Urine WBC 50-100 SEEN /hpf 0-5 [facility] Yeast LM.HPF (Urine sed) [#/ Area]Ordered By: Lasha Pro on 09-03-2024 Urine Yeast 2+ /hpf None Seen [facility] High density lipoprotein (HD L) measurementOrdered By: Lasha Pro on 08-07-2024 Cholesterol in HDL [Mass/Vol] 62 mg/dL >40 [facility] Comment on above: The drugs N-Acetylcy steine and Metamizole may falsely depress this assay. Reference Range HDL <40 mg/dL Low HDL Cholesterol HDL >or= 60 mg/dL High HDL Cholesterol Low density lipoprotein (LDL ) cholesterol measurementOrdered By: Lasha Pro on 08-07-2024 Cholesterol in LDL [Mass/Vol] 45 mg/dL 0-130 [facility] Serum or plasma cholesterol measurement (mass/volume)Ordered By: Lasha Pro on 08-07-2024 Cholesterol [Mass/Vol] 133 mg/dL <[address] [facility] Comment on above: <200 mg/dL Desirable 200-240 mg/dL Borderline >240 mg/dL High Risk TSH QnOrdered By: Lasha Pro on 08-07-2024 Thyroid Stimulating Hormone (TSH) 0.257 uIU/mL Low 0.358-3.74 0 [facility] Triglycerides measurementOrd ered By: Lasha Pro on 08-07-2024 Triglyceride [Mass/Vol] 130 mg/dL <199 [facility] Comment on above: The drugs N-Acetylcy steine and Metamizole may falsely depress this assay.Serum Triglycerides Reference Interval Normal <150 mg/dL Borderline high 150 - 199 mg/dL High 200 - 499 mg/dL Very High > or = 500 mg/dL Very low density lipoprotein (VLDL) cholesterol measurementOrdered By: Lasha Pro on 08-07-2024 VLDL Cholesterol 26 mg/dL 5-40 [facility] .Auto Diffon 02-14-2024 Basophil, Absolute 0.1 10 3/mcL Normal 0.0-0.3 [facility] ([place] Comment on above: Performed By: #### M ORPH, CBC, DIFF #### [address] [address] Basophils/100 WBC (Bld) 2.1 % Normal 0.0-2.5 [facility] ([place]) Comment on above: Performed By: #### M ORPH, CBC, DIFF #### [address] [address] Eosinophil, Absolute 0.2 10 3/mcL Normal 0.0-0.7 [facility] ([place]) Comment on above: Performed By: #### M ORPH, CBC, DIFF #### [address] [address] Eosinophils/100 WBC (Bld) 5.2 % Normal 0.0-6.0 [facility] ([place] Comment on above: Performed By: #### M ORPH, CBC, DIFF #### [address] [address] Lymphocyte, Absolute 1.2 10 3/mcL Normal 0.9-4.3 [facility] ([place] Comment on above: Performed By: #### M ORPH, CBC, DIFF #### [address] [address] Lymphocytes/100 WBC (Bld) 28.4 % Normal 20.0-40.0 [facility] ([place] Comment on above: Performed By: #### M ORPH, CBC, DIFF #### [address] [address] Monocyte, Absolute 0.4 10 3/mcL Normal 0.1-1.4 [facility] ([place] Comment on above: Performed By: #### M ORPH, CBC, DIFF #### [address] [address] Monocytes/100 WBC (Bld) 10.7 % Normal 2.0-13.0 [facility] ([place] Comment on above: Performed By: #### M ORPH, CBC, DIFF #### [address] [address] Neutrophils/100 WBC (Bld) 53.6 % Normal 50.0-75.0 [facility] ([place] Comment on above: Performed By: #### M ORPH, CBC, DIFF #### [address] [address] .GFRon 02-14-2024 GFR >60 Normal [facility] ([place] Comment on above: Result Comment: GFR Population [...] G, CBC, BMP, ADIFF, ANEU, GFR #### [address] [address] GFR Non- >60 Normal [facility] ([place] Comment on above: Result Comment: GFR Population [...] G, CBC, BMP, ADIFF, ANEU, GFR #### [address] [address] .NEUABSon 02-14-2024 Neutrophil, Absolute 2.2 10 3/mcL Low 2.3-8.1 [facility] ([place] Comment on above: Performed By: #### M ORPH, CBC, DIFF #### [address] [address] BMPon 02-14-2024 BUN/Creatinine Ratio 17.6 ratio Normal 10.0-22.0 [facility] ([place] Comment on above: Performed By: #### M ORPH, CBC, DIFF #### [address] [address] Calcium [Mass/Vol] 8.4 mg/dL Low 8.7-10.4 [facility] ([place]) Comment on above: Performed By: #### M ORPH, CBC, DIFF #### [address] [address] Chloride [Moles/Vol] 108 mmol/L Normal 98-110 [facility] ([place] Comment on above: Performed By: #### M ORPH, CBC, DIFF #### [address] [address] CO2 [Moles/Vol] 30 mmol/L Normal 22-32 [facility] ([place] Comment on above: Performed By: #### M LISA, CBC, DIFF #### [address] [address] Creatinine [Mass/Vol] 0.51 mg/dL Normal 0.50-1.20 [facility] ([place] Comment on above: Performed By: #### M ORADILENE, CBC, DIFF #### [address] [address] Electrolyte Balance 4.0 mEq/L Normal 4.0-15.0 [facility] ([place]) Comment on above: Performed By: #### M LISA, CBC, DIFF #### [address] [address] Glucose [Mass/Vol] 100 mg/dL Normal 82-115 [facility] ([place] Comment on above: Performed By: #### M LISA, CBC, DIFF #### [address] [address] Potassium [Moles/Vol] 3.7 mmol/L Normal 3.5-5.0 [facility] [place] Comment on above: Performed By: #### M ORADILENE, CBC, DIFF #### [address] [address] Sodium [Moles/Vol] 142 mmol/L Normal 136-145 [facility] ([place] Comment on above: Performed By: #### M ORADILENE, CBC, DIFF #### [address] [address] Urea nitrogen [Mass/Vol] 9.0 mg/dL Normal 8.0-22.0 [facility] ([place] Comment on above: Performed By: #### M ORADILENE, CBC, DIFF #### [address] [address] CBCon 02-14-2024 Erythrocyte distribution width (RBC) [Ratio] 17.6 % High 11.5-15.5 [facility] ([place] Comment on above: Performed By: #### Mary ORPH, CBC, DIFF #### [address] [address] Hematocrit (Bld) [Volume fraction] 29.4 % Low 34.0-46.0 [facility] ([place] Comment on above: Performed By: #### M ORPH, CBC, DIFF #### [address] [address] Hgb 9.6 G/dL Low 12.0-16.0 [facility] ([place] Comment on above: Performed By: #### M ORPH, CBC, DIFF #### [address] [address] MCH (RBC) [Entitic mass] 30.7 pg Normal 27.0-33.0 [facility] ([place] Comment on above: Performed By: #### M ORPH, CBC, DIFF #### [place] [address] MCHC 32.7 G/dL Normal 32.0-36.0 [facility] ([place] Comment on above: Performed By: #### M ORPH, CBC, DIFF #### [address] [address] MCV (RBC) [Entitic vol] 94.0 fL Normal 80.0-99.0 [facility] ([place] Comment on above: Performed By: #### M ORPH, CBC, DIFF #### [address] [address] Platelet 209 10 3/mcL Normal 150-450 [facility] ([place] Comment on above: Performed By: #### M ORPH, CBC, DIFF #### [address] [address] Platelet mean volume (Bld) [Entitic vol] 7.0 fL Normal 6.6-10.5 [facility] ([place] Comment on above: Performed By: #### M ORPH, CBC, DIFF #### [address] [address] RBC 3.13 10 6/mcL Low 4.10-5.30 [facility] ([place] Comment on above: Performed By: #### M ORPH, CBC, DIFF #### [facility] [address] [place] [address] WBC 4.2 10 3/mcL Low 4.5-10.8 [facility] ([place] Comment on above: Performed By: #### M ORPH, CBC, DIFF #### [facility] [address] [place] [address] LABORATORYOrdered By: SYSTEM SYSTEM on 02-14-2024 Basophils [...] 02-14-2024 Magnesium [Mass/Vol] 1.9 mg/dL Normal 1.6-2.4 [facility] ([place] Comment on above: Performed By: #### M ORPH, CBC, DIFF #### [address] [address] .Auto Diffon 02-12-2024 Basophil, Absolute 0.1 10 3/mcL Normal 0.0-0.3 [facility] ([place] Comment on above: Performed By: #### M ORPH, CBC, DIFF #### [address] [address] Basophils/100 WBC (Bld) 1.9 % Normal 0.0-2.5 [facility] ([place] Comment on above: Performed By: #### M ORPH, CBC, DIFF #### [address] [address] Eosinophil, Absolute 0.1 10 3/mcL Normal 0.0-0.7 [facility] ([place] Comment on above: Performed By: #### M ORPH, CBC, DIFF #### [address] [address] Eosinophils/100 WBC (Bld) 3.5 % Normal 0.0-6.0 [facility] ([place] Comment on above: Performed By: #### M ORPH, CBC, DIFF #### [address] [address] Lymphocyte, Absolute 1.1 10 3/mcL Normal 0.9-4.3 [facility] ([place] Comment on above: Performed By: #### M ORPH, CBC, DIFF #### [address] [address] Lymphocytes/100 WBC (Bld) 26.8 % Normal 20.0-40.0 [facility] ([place] Comment on above: Performed By: #### M ORPH, CBC, DIFF #### [address] [address] Monocyte, Absolute 0.4 10 3/mcL Normal 0.1-1.4 [facility] ([place] Comment on above: Performed By: #### M ORPH, CBC, DIFF #### [address] [address] Monocytes/100 WBC (Bld) 10.7 % Normal 2.0-13.0 [facility] ([place] Comment on above: Performed By: #### M ORPH, CBC, DIFF #### [address] [address] Neutrophils/100 WBC (Bld) 57.1 % Normal 50.0-75.0 [facility] ([place] Comment on above: Performed By: #### M ORPH, CBC, DIFF #### [address] [address] .NEUABSon 02-12-2024 Neutrophil, Absolute 2.3 10 3/mcL Normal 2.3-8.1 [facility] ([place]) Comment on above: Performed By: #### M ORPH, CBC, DIFF #### [address] [address] CBCon 02-12-2024 Erythrocyte distribution width (RBC) [Ratio] 17.3 % High 11.5-15.5 [facility] ([place] Comment on above: Performed By: #### M ORPH, CBC, DIFF #### [place] [id number] Hematocrit (Bld) [Volume fraction] 29.6 % Low 34.0-46.0 [facility] ([place] Comment on above: Performed By: #### M ORPH, CBC, DIFF #### [place] [id number] Hgb 9.6 G/dL Low 12.0-16.0 [facility] ([place] Comment on above: Performed By: #### M ORPH, CBC, DIFF #### [place] [id number] MCH (RBC) [Entitic mass] 30.7 pg Normal 27.0-33.0 [facility] ([place] Comment on above: Performed By: #### M ORPH, CBC, DIFF #### [place] [address] MCHC 32.6 G/dL Normal 32.0-36.0 [facility] ([place] Comment on above: Performed By: #### M ORPH, CBC, DIFF #### [place] [id number] MCV (RBC) [Entitic vol] 94.0 fL Normal 80.0-99.0 [facility] ([place] Comment on above: Performed By: #### M ORPH, CBC, DIFF #### [place] [id number] Platelet 215 10 3/mcL Normal 150-450 [facility] ([place] Comment on above: Performed By: #### M ORPH, CBC, DIFF #### [place] [address] Platelet mean volume (Bld) [Entitic vol] 7.5 fL Normal 6.6-10.5 [facility] ([place] Comment on above: Performed By: #### M ORPH, CBC, DIFF #### [address] [address] RBC 3.15 10 6/mcL Low 4.10-5.30 [facility] ([place] Comment on above: Performed By: #### M ORPH, CBC, DIFF #### [address] [address] WBC 4.1 10 3/mcL Low 4.5-10.8 [facility] ([place] Comment on above: Performed By: #### M ORPH, CBC, DIFF #### [address] [address] LABORATORYOrdered By: SYSTEM SYSTEM on 02-12-2024 Basophils [...] 02/11/2024 5:26:58 PM Ordering Provider: DRE Woody [facility] ([place] on 02-10-2024 Hematocrit (Bld) [Volume fraction] 29.5 % Low 34.0-46.0 [facility] ([place] Comment on above: Performed By: #### U A #### [place] [id number] [place], [place] [address] Hgb 9.9 G/dL Low 12.0-16.0 [facility] ([place] Comment on above: Performed By: #### U A #### [address] [place] [address] [place], [place] [address] LABORATORYOrdered By: SYSTEM SYSTEM on 02-10-2024 Hematocrit (Bld) [Volume fraction] 29.5 % Low 34.0 - 46.0 % Workflow SS Hemoglobin (Bld) [Mass/Vol] 9.9 G/dL Low 12.0 - 16.0 G/dL Workflow [facility] .Manual Diffon 02-09-2024 Basophil %, Manual 2.0 % Normal 0.0-2.5 [facility] ([place] Comment on above: Performed By: #### M ORPH, CBC, DIFF #### [address] [address] Basophil, Abs Manual 0.1 10 3/mcL Normal 0.0-0.3 [facility] ([place] Comment on above: Performed By: #### M ORPH, CBC, DIFF #### [address] [address] Eosinophil %, Manual 5.0 % Normal 0.0-6.0 [facility] ([place] Comment on above: Performed By: #### M ORPH, CBC, DIFF #### [address] [address] Eosinophil, Abs Manual 0.4 10 3/mcL Normal 0.0-0.7 [facility] ([place] Comment on above: Performed By: #### M ORPH, CBC, DIFF #### [address] [address] Lymphocyte %, Manual 32.0 % Normal 20.0-40.0 [facility] ([place] Comment on above: Performed By: #### M ORPH, CBC, DIFF #### [address] [address] Lymphocyte, Abs Manual 2.2 10 3/mcL Normal 0.9-4.3 [facility] ([place] Comment on above: Performed By: #### M ORPH, CBC, DIFF #### [address] [address] Monocyte %, Manual 7.0 % Normal 2.0-13.0 [facility] ([place] Comment on above: Performed By: #### M ORPH, CBC, DIFF #### [address] [address] Monocyte, Abs Manual 0.5 10 3/mcL Normal 0.1-1.4 [facility] ([place] Comment on above: Performed By: #### M ORPH, CBC, DIFF #### [address] [address] Neutrophil %, Manual 54.0 % Normal 50.0-75.0 [facility] ([place] Comment on above: Performed By: #### M ORPH, CBC, DIFF #### [address] [address] Neutrophil, Abs Manual 3.7 10 3/mcL Normal 2.3-8.1 [facility] ([place]) Comment on above: Performed By: #### M ORPH, CBC, DIFF #### [address] [address] Nucleated RBC 0.0 /100 WBC Normal [facility] ([place] Comment on above: Performed By: #### M ORPH, CBC, DIFF #### [address] [address] .Morphon 02-09-2024 Anisocytosis Ql (Bld) 1+ Normal [facility] ([place]) Comment on above: Performed By: #### M ORPH, CBC, DIFF #### [address] [address] Platelet Estimate Normal Normal [facility] ([place]) Comment on above: Performed By: #### M ORPH, CBC, DIFF #### [address] [address] Polychrom 1+ Normal [facility] ([place]) Comment on above: Performed By: #### M ORPH, CBC, DIFF #### [address] [address] CBCon 02-09-2024 Platelet 220 10 3/mcL Normal 150-450 [facility] ([place] Comment on above: Performed By: #### M ORPH, CBC, DIFF #### [place] [id number] Platelet mean volume (Bld) [Entitic vol] 7.5 fL Normal 6.6-10.5 [facility] ([place] Comment on above: Performed By: #### M ORPH, CBC, DIFF #### [place] [id number] WBC 7.0 10 3/mcL Normal 4.5-10.8 [facility] ([place] Comment on above: Performed By: #### M ORPH, CBC, DIFF #### [place] [address] Erythrocyte distribution width (RBC) [Ratio] 16.9 % High 11.5-15.5 [facility] ([place] Comment on above: Performed By: #### M ORPH, CBC, DIFF #### [place] [address] Hematocrit (Bld) [Volume fraction] 29.8 % Low 34.0-46.0 [facility] ([place] Comment on above: Performed By: #### M ORPH, CBC, DIFF #### [place] [address] Hgb 9.8 G/dL Low 12.0-16.0 [facility] ([place] Comment on above: Performed By: #### M ORPH, CBC, DIFF #### [place] [id number] MCH (RBC) [Entitic mass] 30.8 pg Normal 27.0-33.0 [facility] ([place] Comment on above: Performed By: #### M ORPH, CBC, DIFF #### [place] [id number] MCHC 33.0 G/dL Normal 32.0-36.0 [facility] ([place] Comment on above: Performed By: #### M ORPH, CBC, DIFF #### [address] [address] MCV (RBC) [Entitic vol] 93.3 fL Normal 80.0-99.0 [facility] ([place] Comment on above: Performed By: #### M ORPH, CBC, DIFF #### [address] [address] RBC 3.19 10 6/mcL Low 4.10-5.30 [facility] ([place] Comment on above: Performed By: #### M ORPH, CBC, DIFF #### [address] [address] LABORATORYOrdered By: SYSTEM SYSTEM on 02-09-2024 Anisocytosis [...] Basophil, Absolute 0.1 10 3/mcL Normal 0.0-0.3 [facility] ([place] Comment on above: Performed By: #### M G, CBC, BMP, ADIFF, ANEU, GFR #### [address] [address] Basophils/100 WBC (Bld) 2.3 % Normal 0.0-2.5 [facility] ([place] Comment on above: Performed By: #### M G, CBC, BMP, ADIFF, ANEU, GFR #### [address] [address] Eosinophil, Absolute 0.1 10 3/mcL Normal 0.0-0.7 [facility] ([place] Comment on above: Performed By: #### M G, CBC, BMP, ADIFF, ANEU, GFR #### [address] [address] Eosinophils/100 WBC (Bld) 2.9 % Normal 0.0-6.0 [facility] ([place] Comment on above: Performed By: #### M G, CBC, BMP, ADIFF, ANEU, GFR #### [address] [address] Lymphocyte, Absolute 0.8 10 3/mcL Low 0.9-4.3 [facility] ([place] Comment on above: Performed By: #### M G, CBC, BMP, ADIFF, ANEU, GFR #### [address] [address] Lymphocytes/100 WBC (Bld) 20.7 % Normal 20.0-40.0 [facility] ([place] Comment on above: Performed By: #### M G, CBC, BMP, ADIFF, ANEU, GFR #### [address] [address] Monocyte, Absolute 0.4 10 3/mcL Normal 0.1-1.4 [facility] ([place] Comment on above: Performed By: #### M G, CBC, BMP, ADIFF, ANEU, GFR #### [address] [address] Monocytes/100 WBC (Bld) 10.1 % Normal 2.0-13.0 [facility] ([place] Comment on above: Performed By: #### M G, CBC, BMP, ADIFF, ANEU, GFR #### [address] [address] Neutrophils/100 WBC (Bld) 64.0 % Normal 50.0-75.0 [facility] ([place] Comment on above: Performed By: #### M G, CBC, BMP, ADIFF, ANEU, GFR #### [address] [address] .GFRon 02-08-2024 GFR >60 Normal [facility] ([place] Comment on above: Result Comment: GFR Population [...] G, CBC, BMP, ADIFF, ANEU, GFR #### [address] [address] GFR Non- >60 Normal [facility] ([place] Comment on above: Result Comment: GFR Population [...] G, CBC, BMP, ADIFF, ANEU, GFR #### [address] [address] .NEUABSon 02-08-2024 Neutrophil, Absolute 2.6 10 3/mcL Normal 2.3-8.1 [facility] ([place] Comment on above: Performed By: #### M G, CBC, BMP, ADIFF, ANEU, GFR #### [address] [address] BMPon 02-08-2024 BUN/Creatinine Ratio 14.5 ratio Normal 10.0-22.0 [facility] ([place] Comment on above: Performed By: #### M G, CBC, BMP, ADIFF, ANEU, GFR #### [address] [address] Calcium [Mass/Vol] 8.5 mg/dL Low 8.7-10.4 [facility] ([place] Comment on above: Performed By: #### M G, CBC, BMP, ADIFF, ANEU, GFR #### [address] [address] Chloride [Moles/Vol] 107 mmol/L Normal 98-110 [facility] ([place] Comment on above: Performed By: #### M G, CBC, BMP, ADIFF, ANEU, GFR #### [address] [address] CO2 [Moles/Vol] 26 mmol/L Normal 22-32 [facility] ([place] Comment on above: Performed By: #### M G, CBC, BMP, ADIFF, ANEU, GFR #### [address] [address] Creatinine [Mass/Vol] 0.62 mg/dL Normal 0.50-1.20 [facility] [place] Comment on above: Performed By: #### M G, CBC, BMP, ADIFF, ANEU, GFR #### [address] [address] Electrolyte Balance 9.0 mEq/L Normal 4.0-15.0 [facility] ([place] Comment on above: Performed By: #### M G, CBC, BMP, ADIFF, ANEU, GFR #### [address] [address] Glucose [Mass/Vol] 108 mg/dL Normal 82-115 [facility] ([place] Comment on above: Performed By: #### M G, CBC, BMP, ADIFF, ANEU, GFR #### [address] [address] Potassium [Moles/Vol] 4.0 mmol/L Normal 3.5-5.0 [facility] [place] Comment on above: Performed By: #### M G, CBC, BMP, ADIFF, ANEU, GFR #### [address] [address] Sodium [Moles/Vol] 142 mmol/L Normal 136-145 [facility] ([place] Comment on above: Performed By: #### M G, CBC, BMP, ADIFF, ANEU, GFR #### [address] [address] Urea nitrogen [Mass/Vol] 9.0 mg/dL Normal 8.0-22.0 [facility] ([place] Comment on above: Performed By: #### M G, CBC, BMP, ADIFF, ANEU, GFR #### [place] [address] CBCon 02-08-2024 Erythrocyte distribution width (RBC) [Ratio] 16.4 % High 11.5-15.5 [facility] ([place] Comment on above: Performed By: #### M G, CBC, BMP, ADIFF, ANEU, GFR #### [place] [address] Hematocrit (Bld) [Volume fraction] 32.7 % Low 34.0-46.0 [facility] ([place] Comment on above: Performed By: #### M G, CBC, BMP, ADIFF, ANEU, GFR #### [address] [address] Hgb 10.8 G/dL Low 12.0-16.0 [facility] ([place] Comment on above: Performed By: #### M G, CBC, BMP, ADIFF, ANEU, GFR #### [address] [address] MCH (RBC) [Entitic mass] 30.9 pg Normal 27.0-33.0 [facility] ([place] Comment on above: Performed By: #### M G, CBC, BMP, ADIFF, ANEU, GFR #### [place] [address] MCHC 33.0 G/dL Normal 32.0-36.0 [facility] ([place] Comment on above: Performed By: #### M G, CBC, BMP, ADIFF, ANEU, GFR #### [address] [address] MCV (RBC) [Entitic vol] 93.5 fL Normal 80.0-99.0 [facility] ([place] Comment on above: Performed By: #### M G, CBC, BMP, ADIFF, ANEU, GFR #### [address] [address] Platelet 224 10 3/mcL Normal 150-450 [facility] ([place] Comment on above: Performed By: #### M G, CBC, BMP, ADIFF, ANEU, GFR #### [address] [address] Platelet mean volume (Bld) [Entitic vol] 7.3 fL Normal 6.6-10.5 [facility] ([place] Comment on above: Performed By: #### M G, CBC, BMP, ADIFF, ANEU, GFR #### [address] [address] RBC 3.50 10 6/mcL Low 4.10-5.30 [facility] ([place] Comment on above: Performed By: #### M G, CBC, BMP, ADIFF, ANEU, GFR #### [address] [address] [address] WBC 4.1 10 3/mcL Low 4.5-10.8 [facility] ([place]) Comment on above: Performed By: #### M G, CBC, BMP, ADIFF, ANEU, GFR #### [address] [address] LABORATORYOrdered By: SYSTEM SYSTEM on 02-08-2024 Basophils [...] (S/P/Bld) [Vol rate/Area] ml/min/1.73sqm Invalid Interpretation Code [employer] Chemistry S Comment on above: Interpretive Data: [...] (S/P/Bld) [Vol rate/Area] ml/min/1.73sqm Invalid Interpretation Code [employer] Chemistry S Comment on above: Interpretive Data: [...] 02-08-2024 Magnesium [Mass/Vol] 2.1 mg/dL Normal 1.6-2.4 [facility] ([place]) Comment on above: Performed By: #### M G, CBC, BMP, ADIFF, ANEU, GFR #### Rosa Maria [address] [address] .Auto Diffon 02-07-2024 Basophil, Absolute 0.1 10 3/mcL Normal 0.0-0.3 [facility] ([place]) Comment on above: Performed By: #### A MANJULA, CBC, ADIFF, GFR, BMP #### Rosa Maria [address] [address] Basophils/100 WBC (Bld) 1.4 % Normal 0.0-2.5 [facility] ([place]) Comment on above: Performed By: #### A MANJULA, CBC, ADIFF, GFR, BMP #### [address] [address] Eosinophil, Absolute 0.1 10 3/mcL Normal 0.0-0.7 [facility] ([place]) Comment on above: Performed By: #### A MANJULA, CBC, ADIFF, GFR, BMP #### [address] [address] Eosinophils/100 WBC (Bld) 2.6 % Normal 0.0-6.0 [facility] ([place]) Comment on above: Performed By: #### A MANJULA, CBC, ADIFF, GFR, BMP #### [address] [address] Lymphocyte, Absolute 1.1 10 3/mcL Normal 0.9-4.3 [facility] ([place]) Comment on above: Performed By: #### A MANJULA, CBC, ADIFF, GFR, BMP #### [address] [address] Lymphocytes/100 WBC (Bld) 23.2 % Normal 20.0-40.0 [facility] ([place]) Comment on above: Performed By: #### A MANJULA, CBC, ADIFF, GFR, BMP #### [address] [address] Monocyte, Absolute 0.5 10 3/mcL Normal 0.1-1.4 [facility] ([place]) Comment on above: Performed By: #### A MANJULA, CBC, ADIFF, GFR, BMP #### [address] [address] Monocytes/100 WBC (Bld) 10.1 % Normal 2.0-13.0 [facility] ([place]) Comment on above: Performed By: #### A MANJULA, CBC, ADIFF, GFR, BMP #### [address] [address] Neutrophils/100 WBC (Bld) 62.7 % Normal 50.0-75.0 [facility] ([place]) Comment on above: Performed By: #### A MANJULA, CBC, ADIFF, GFR, BMP #### [address] [address] .GFRon 02-07-2024 GFR >60 Normal [facility] ([place] Comment on above: Result Comment: GFR Population [...] A MANJULA, CBC, ADIFF, GFR, BMP #### [address] [address] GFR Non- >60 Normal [facility] ([place]) Comment on above: Result Comment: GFR Population [...] A MANJULA, CBC, ADIFF, GFR, BMP #### [address] [address] .NEUABSon 02-07-2024 Neutrophil, Absolute 2.8 10 3/mcL Normal 2.3-8.1 [facility] ([place]) Comment on above: Performed By: #### A MANJULA, CBC, ADIFF, GFR, BMP #### [address] [address] BMPon 02-07-2024 BUN/Creatinine Ratio 14.3 ratio Normal 10.0-22.0 [facility] ([place]) Comment on above: Performed By: #### A MANJULA, CBC, ADIFF, GFR, BMP #### [address] [address] Calcium [Mass/Vol] 8.4 mg/dL Low 8.7-10.4 [facility] ([place]) Comment on above: Performed By: #### A MANJULA, CBC, ADIFF, GFR, BMP #### [address] [address] Chloride [Moles/Vol] 107 mmol/L Normal 98-110 [facility] ([place]) Comment on above: Performed By: #### A MANJULA, CBC, ADIFF, GFR, BMP #### [address] [address] CO2 [Moles/Vol] 27 mmol/L Normal 22-32 [facility] ([place] Comment on above: Performed By: #### A MANJULA, CBC, ADIFF, GFR, BMP #### [address] [address] Creatinine [Mass/Vol] 0.70 mg/dL Normal 0.50-1.20 [facility] ([place] Comment on above: Performed By: #### A MANJULA, CBC, ADIFF, GFR, BMP #### [address] [address] Electrolyte Balance 7.0 mEq/L Normal 4.0-15.0 [facility] ([place]) Comment on above: Performed By: #### A MANJULA, CBC, ADIFF, GFR, BMP #### [address] [address] Glucose [Mass/Vol] 94 mg/dL Normal 82-115 [facility] ([place]) Comment on above: Performed By: #### A MANJULA, CBC, ADIFF, GFR, BMP #### [address] [address] Potassium [Moles/Vol] 4.2 mmol/L Normal 3.5-5.0 [facility] [place] Comment on above: Performed By: #### A MANJULA, CBC, ADIFF, GFR, BMP #### [address] [address] Sodium [Moles/Vol] 141 mmol/L Normal 136-145 [facility] ([place]) Comment on above: Performed By: #### A MANJULA, CBC, ADIFF, GFR, BMP #### [address] [address] Urea nitrogen [Mass/Vol] 10.0 mg/dL Normal 8.0-22.0 [facility] ([place]) Comment on above: Performed By: #### A MANJULA, CBC, ADIFF, GFR, BMP #### [address] [address] CBCon 02-07-2024 Erythrocyte distribution width (RBC) [Ratio] 16.2 % High 11.5-15.5 [facility] ([place]) Comment on above: Performed By: #### A MANJULA, CBC, ADIFF, GFR, BMP #### [address] [address] Hematocrit (Bld) [Volume fraction] 32.8 % Low 34.0-46.0 [facility] ([place]) Comment on above: Performed By: #### A MANJULA, CBC, ADIFF, GFR, BMP #### [address] [address] Hgb 10.7 G/dL Low 12.0-16.0 [facility] ([place]) Comment on above: Performed By: #### A MANJULA, CBC, ADIFF, GFR, BMP #### [address] [address] MCH (RBC) [Entitic mass] 30.6 pg Normal 27.0-33.0 [facility] ([place]) Comment on above: Performed By: #### A MANJULA, CBC, ADIFF, GFR, BMP #### [address] [address] MCHC 32.7 G/dL Normal 32.0-36.0 [facility] ([place]) Comment on above: Performed By: #### A MANJULA, CBC, ADIFF, GFR, BMP #### [address] [address] MCV (RBC) [Entitic vol] 93.6 fL Normal 80.0-99.0 [facility] ([place]) Comment on above: Performed By: #### A MANJULA, CBC, ADIFF, GFR, BMP #### [address] [address] Platelet 215 10 3/mcL Normal 150-450 [facility] ([place]) Comment on above: Performed By: #### A MANJULA, CBC, ADIFF, GFR, BMP #### [address] [address] Platelet mean volume (Bld) [Entitic vol] 7.5 fL Normal 6.6-10.5 [facility] ([place]) Comment on above: Performed By: #### A MANJULA, CBC, ADIFF, GFR, BMP #### [address] [address] RBC 3.50 10 6/mcL Low 4.10-5.30 [facility] ([place]) Comment on above: Performed By: #### A MANJULA, CBC, ADIFF, GFR, BMP #### [address] [address] WBC 4.5 10 3/mcL Normal 4.5-10.8 [facility] ([place]) Comment on above: Performed By: #### A MANJULA, CBC, ADIFF, GFR, BMP #### [address] [address] LABORATORYOrdered By: SYSTEM SYSTEM on 02-07-2024 Calcium [...] (S/P/Bld) [Vol rate/Area] ml/min/1.73sqm Invalid Interpretation Code [employer] Chemistry S Comment on above: Interpretive Data: [...] (S/P/Bld) [Vol rate/Area] ml/min/1.73sqm Invalid Interpretation Code [employer] Chemistry S Comment on above: Interpretive Data: [...] 02-07-2024 Magnesium [Mass/Vol] 1.9 mg/dL Normal 1.6-2.4 [facility] ([place]) Comment on above: Performed By: #### A MANJULA, CBC, ADIFF, GFR, BMP #### [address] [address] .Auto Diffon 02-06-2024 Basophil, Absolute 0.1 10 3/mcL Normal 0.0-0.3 [facility] ([place]) Comment on above: Performed By: #### M ORPH, CBC, DIFF #### [address] [address] Basophils/100 WBC (Bld) 1.5 % Normal 0.0-2.5 [facility] ([place]) Comment on above: Performed By: #### M ORPH, CBC, DIFF #### [address] [address] Eosinophil, Absolute 0.1 10 3/mcL Normal 0.0-0.7 [facility] ([place]) Comment on above: Performed By: #### M ORPH, CBC, DIFF #### [address] [address] Eosinophils/100 WBC (Bld) 2.6 % Normal 0.0-6.0 [facility] ([place]) Comment on above: Performed By: #### M ORPH, CBC, DIFF #### [address] [address] Lymphocyte, Absolute 0.9 10 3/mcL Normal 0.9-4.3 [facility] ([place]) Comment on above: Performed By: #### M ORPH, CBC, DIFF #### [address] [address] Lymphocytes/100 WBC (Bld) 22.0 % Normal 20.0-40.0 [facility] ([place]) Comment on above: Performed By: #### M ORPH, CBC, DIFF #### [address] [address] Monocyte, Absolute 0.4 10 3/mcL Normal 0.1-1.4 [facility] ([place]) Comment on above: Performed By: #### M ORPH, CBC, DIFF #### [address] [address] Monocytes/100 WBC (Bld) 9.3 % Normal 2.0-13.0 [facility] ([place]) Comment on above: Performed By: #### M ORPH, CBC, DIFF #### [address] [address] Neutrophils/100 WBC (Bld) 64.6 % Normal 50.0-75.0 [facility] ([place]) Comment on above: Performed By: #### M ORPH, CBC, DIFF #### [address] [address] .GFRon 02-06-2024 GFR >60 Normal [facility] ([place]) Comment on above: Result Comment: GFR Population [...] #### M ORPH, CBC, DIFF #### Rosa Maria[address] [address] GFR Non- >60 Normal [facility] ([place]) Comment on above: Result Comment: GFR Population [...] By: #### M ORPH, CBC, DIFF #### [address] [address] .NEUABSon 02-06-2024 Neutrophil, Absolute 2.7 10 3/mcL Normal 2.3-8.1 [facility] ([place]) Comment on above: Performed By: #### M ORPH, CBC, DIFF #### [address] [address] BMPon 02-06-2024 BUN/Creatinine Ratio 14.8 ratio Normal 10.0-22.0 [facility] ([place]) Comment on above: Performed By: #### M ORPH, CBC, DIFF #### [address] [address] Calcium [Mass/Vol] 8.4 mg/dL Low 8.7-10.4 [facility] ([place]) Comment on above: Performed By: #### M ORPH, CBC, DIFF #### [address] [address] Chloride [Moles/Vol] 107 mmol/L Normal 98-110 [facility] ([place] Comment on above: Performed By: #### M ORPH, CBC, DIFF #### [address] [address] CO2 [Moles/Vol] 29 mmol/L Normal 22-32 [facility] ([place] Comment on above: Performed By: #### M ORPH, CBC, DIFF #### [address] [address] Creatinine [Mass/Vol] 0.61 mg/dL Normal 0.50-1.20 [facility] [place] Comment on above: Performed By: #### M ORPH, CBC, DIFF #### [address] [address] Electrolyte Balance 4.0 mEq/L Normal 4.0-15.0 [facility] ([place]) Comment on above: Performed By: #### M ORPH, CBC, DIFF #### [address] [address] Glucose [Mass/Vol] 93 mg/dL Normal 82-115 [facility] ([place]) Comment on above: Performed By: #### M ORPH, CBC, DIFF #### [address] [address] Potassium [Moles/Vol] 4.1 mmol/L Normal 3.5-5.0 [facility] [place] Comment on above: Performed By: #### M ORPH, CBC, DIFF #### [address] [address] Sodium [Moles/Vol] 140 mmol/L Normal 136-145 [facility] ([place]) Comment on above: Performed By: #### M ORPH, CBC, DIFF #### [address] [address] Urea nitrogen [Mass/Vol] 9.0 mg/dL Normal 8.0-22.0 [facility] ([place]) Comment on above: Performed By: #### M ORPH, CBC, DIFF #### [address] [address] CBCon 02-06-2024 Erythrocyte distribution width (RBC) [Ratio] 16.3 % High 11.5-15.5 [facility] ([place]) Comment on above: Performed By: #### M ORPH, CBC, DIFF #### [address] [address] Hematocrit (Bld) [Volume fraction] 28.6 % Low 34.0-46.0 [facility] ([place] Comment on above: Performed By: #### M ORPH, CBC, DIFF #### [address] [address] Hgb 9.5 G/dL Low 12.0-16.0 [facility] ([place]) Comment on above: Performed By: #### M ORPH, CBC, DIFF #### [address] [address] MCH (RBC) [Entitic mass] 30.7 pg Normal 27.0-33.0 [facility] ([place]) Comment on above: Performed By: #### M ORPH, CBC, DIFF #### [place] [address] MCHC 33.4 G/dL Normal 32.0-36.0 [facility] ([place] Comment on above: Performed By: #### M ORPH, CBC, DIFF #### [place] [address] MCV (RBC) [Entitic vol] 92.1 fL Normal 80.0-99.0 [facility] ([place] Comment on above: Performed By: #### M ORPH, CBC, DIFF #### [place] [address] Platelet 219 10 3/mcL Normal 150-450 [facility] ([place] Comment on above: Performed By: #### M ORPH, CBC, DIFF #### [place] [address] Platelet mean volume (Bld) [Entitic vol] 7.4 fL Normal 6.6-10.5 [facility] ([place]) Comment on above: Performed By: #### M ORPH, CBC, DIFF #### [place] [id number] RBC 3.10 10 6/mcL Low 4.10-5.30 [facility] ([place] Comment on above: Performed By: #### M ORPH, CBC, DIFF #### [place] [address] WBC 4.2 10 3/mcL Low 4.5-10.8 [facility] ([place] Comment on above: Performed By: #### M ORPH, CBC, DIFF #### [address] [address] MGon 02-06-2024 Magnesium [Mass/Vol] 2.0 mg/dL Normal 1.6-2.4 [facility] ([place]) Comment on above: Performed By: #### M ORPH, CBC, DIFF #### [address] [address] .Auto Diffon 02-05-2024 Basophil, Absolute 0.0 10 3/mcL Normal 0.0-0.3 [facility] ([place]) Comment on above: Performed By: #### M ORPH, CBC, DIFF #### [address] [address] Basophils/100 WBC (Bld) 1.5 % Normal 0.0-2.5 [facility] ([place] Comment on above: Performed By: #### M ORPH, CBC, DIFF #### [address] [address] Eosinophil, Absolute 0.1 10 3/mcL Normal 0.0-0.7 [facility] ([place] Comment on above: Performed By: #### M ORPH, CBC, DIFF #### [address] [address] Eosinophils/100 WBC (Bld) 3.4 % Normal 0.0-6.0 [facility] ([place] Comment on above: Performed By: #### M ORPH, CBC, DIFF #### [address] [address] Lymphocyte, Absolute 0.8 10 3/mcL Low 0.9-4.3 [facility] ([place] Comment on above: Performed By: #### M ORPH, CBC, DIFF #### [address] [address] Lymphocytes/100 WBC (Bld) 26.8 % Normal 20.0-40.0 [facility] ([place] Comment on above: Performed By: #### M ORPH, CBC, DIFF #### [address] [address] Monocyte, Absolute 0.3 10 3/mcL Normal 0.1-1.4 [facility] ([place]) Comment on above: Performed By: #### M ORPH, CBC, DIFF #### [address] [address] Monocytes/100 WBC (Bld) 10.9 % Normal 2.0-13.0 [facility] ([place] Comment on above: Performed By: #### M ORPH, CBC, DIFF #### [address] [address] Neutrophils/100 WBC (Bld) 57.4 % Normal 50.0-75.0 [facility] ([place] Comment on above: Performed By: #### M ORPH, CBC, DIFF #### [address] [address] .GFRon 02-05-2024 GFR >60 Normal [facility] ([place] Comment on above: Result Comment: GFR Population [...] By: #### M ORPH, CBC, DIFF #### [address] [address] GFR Non- >60 Normal [facility] ([place] Comment on above: Result Comment: GFR Population [...] By: #### M ORPH, CBC, DIFF #### [address] [address] .NEUABSon 02-05-2024 Neutrophil, Absolute 1.8 10 3/mcL Low 2.3-8.1 [facility] ([place]) Comment on above: Performed By: #### M ORPH, CBC, DIFF #### [address] [address] BMPon 02-05-2024 BUN/Creatinine Ratio 20.3 ratio Normal 10.0-22.0 [facility] ([place]) Comment on above: Order Comment: Routi ne for 0501 the morning of patient admission. Performed By: #### M ORPH, CBC, DIFF #### [address] [address] Calcium [Mass/Vol] 8.3 mg/dL Low 8.7-10.4 [facility] ([place]) Comment on above: Order Comment: Routi ne for 0501 the morning of patient admission. Performed By: #### M ORPH, CBC, DIFF #### [address] [address] Chloride [Moles/Vol] 108 mmol/L Normal 98-110 [facility] ([place]) Comment on above: Order Comment: Routi ne for 0501 the morning of patient admission. Performed By: #### M ORPH, CBC, DIFF #### [address] [address] CO2 [Moles/Vol] 27 mmol/L Normal 22-32 [facility] ([place] Comment on above: Order Comment: Routi ne for 0501 the morning of patient admission. Performed By: #### M ORPH, CBC, DIFF #### [address] [address] Creatinine [Mass/Vol] 0.59 mg/dL Normal 0.50-1.20 [facility] [place] Comment on above: Order Comment: Routi ne for 0501 the morning of patient admission. Performed By: #### M ORPH, CBC, DIFF #### [place] [id number] Electrolyte Balance 7.0 mEq/L Normal 4.0-15.0 [facility] ([place]) Comment on above: Order Comment: Routi ne for 0501 the morning of patient admission. Performed By: #### M ORPH, CBC, DIFF #### [place] [id number] Glucose [Mass/Vol] 85 mg/dL Normal 82-115 [facility] ([place]) Comment on above: Order Comment: Routi ne for 0501 the morning of patient admission. Performed By: #### M ORPH, CBC, DIFF #### [place] [id number] Potassium [Moles/Vol] 4.1 mmol/L Normal 3.5-5.0 [facility] [place] Comment on above: Order Comment: Routi ne for 0501 the morning of patient admission. Performed By: #### M ORPH, CBC, DIFF #### [place] [id number] Sodium [Moles/Vol] 142 mmol/L Normal 136-145 [facility] ([place]) Comment on above: Order Comment: Routi ne for 0501 the morning of patient admission. Performed By: #### M ORPH, CBC, DIFF #### [place] [id number] Urea nitrogen [Mass/Vol] 12.0 mg/dL Normal 8.0-22.0 [facility] ([place] Comment on above: Order Comment: Routi ne for 0501 the morning of patient admission. Performed By: #### M ORPH, CBC, DIFF #### [address] [address] CBCon 06-29-2024 Erythrocyte distribution width (RBC) [Ratio] 16.1 % High 11.5-15.5 [facility] ([place]) Comment on above: Order Comment: Routi ne for 0501 the morning of patient admission. Performed By: #### M ORPH, CBC, DIFF #### [place] [id number] Hematocrit (Bld) [Volume fraction] 30.3 % Low 34.0-46.0 [facility] ([place] Comment on above: Order Comment: Routi ne for 0501 the morning of patient admission. Performed By: #### M ORPH, CBC, DIFF #### [place] [id number] Hgb 10.0 G/dL Low 12.0-16.0 [facility] ([place] Comment on above: Order Comment: Routi ne for 0501 the morning of patient admission. Performed By: #### M ORPH, CBC, DIFF #### [place] [id number] MCH (RBC) [Entitic mass] 30.6 pg Normal 27.0-33.0 [facility] ([place] Comment on above: Order Comment: Routi ne for 0501 the morning of patient admission. Performed By: #### M ORPH, CBC, DIFF #### [place] [id number] MCHC 32.9 G/dL Normal 32.0-36.0 [facility] ([place] Comment on above: Order Comment: Routi ne for 0501 the morning of patient admission. Performed By: #### M ORPH, CBC, DIFF #### [place] [id number] MCV (RBC) [Entitic vol] 93.0 fL Normal 80.0-99.0 [facility] ([place] Comment on above: Order Comment: Routi ne for 0501 the morning of patient admission. Performed By: #### M ORPH, CBC, DIFF #### [place] [id number] Platelet 208 10 3/mcL Normal 150-450 [facility] ([place] Comment on above: Order Comment: Routi ne for 0501 the morning of patient admission. Performed By: #### M ORPH, CBC, DIFF #### [address] [address] Platelet mean volume (Bld) [Entitic vol] 7.7 fL Normal 6.6-10.5 [facility] ([place] Comment on above: Order Comment: Routi ne for 0501 the morning of patient admission. Performed By: #### M ORPH, CBC, DIFF #### [address] [address] RBC 3.26 10 6/mcL Low 4.10-5.30 [facility] ([place] Comment on above: Order Comment: Routi ne for 0501 the morning of patient admission. Performed By: #### M ORPH, CBC, DIFF #### [address] [address] WBC 3.2 10 3/mcL Low 4.5-10.8 [facility] ([place] Comment on above: Order Comment: Routi ne for 0501 the morning of patient admission. Performed By: #### M ORPH, CBC, DIFF #### [address] [address] .Auto Diffon 02-04-2024 Basophil, Absolute 0.1 10 3/mcL Normal 0.0-0.2 [facility] ([place] Comment on above: Performed By: #### M ORPH, CBC, DIFF #### [address] [address] Basophils/100 WBC (Bld) 1.4 % Normal 0.0-2.5 [facility] ([place] Comment on above: Performed By: #### M ORPH, CBC, DIFF #### [address] [address] Eosinophil, Absolute 0.2 10 3/mcL Normal 0.0-0.4 [facility] ([place] Comment on above: Performed By: #### M ORPH, CBC, DIFF #### [address] [address] Eosinophils/100 WBC (Bld) 3.5 % Normal 0.0-7.0 [facility] ([place] Comment on above: Performed By: #### M ORPH, CBC, DIFF #### [address] [address] Lymphocyte, Absolute 0.8 10 3/mcL Normal 0.8-3.9 [facility] ([place] Comment on above: Performed By: #### M ORPH, CBC, DIFF #### [address] [address] Lymphocytes/100 WBC (Bld) 16.1 % Normal 10.0-50.0 [facility] ([place] Comment on above: Performed By: #### M ORPH, CBC, DIFF #### [address] [address] Monocyte, Absolute 0.5 10 3/mcL Normal 0.2-1.0 [facility] ([place] Comment on above: Performed By: #### M ORPH, CBC, DIFF #### [address] [address] Monocytes/100 WBC (Bld) 11.2 % Normal 1.7-13.0 [facility] ([place] Comment on above: Performed By: #### M ORPH, CBC, DIFF #### [address] [address] Neutrophils/100 WBC (Bld) 67.8 % Normal 37.0-80.0 [facility] ([place] Comment on above: Performed By: #### M ORPH, CBC, DIFF #### [address] [address] .GFRon 02-04-2024 GFR 100 ml/min/1.73sqm Normal [facility] ([place] Comment on above: Result Comment: GFR Population [...] By: #### M ORPH, CBC, DIFF #### [address] [address] GFR Non- 82 ml/min/1.73sqm Normal [facility] ([place] Comment on above: Result Comment: GFR Population [...] By: #### M ORPH, CBC, DIFF #### [address] [address] .NEUABSon 02-04-2024 Neutrophil, Absolute 3.2 10 3/mcL Normal 2.9-6.2 [facility] ([place] Comment on above: Performed By: #### M ORPH, CBC, DIFF #### [address] [address] BMPon 02-04-2024 BUN/Creatinine Ratio 16 ratio Normal 7-27 [facility] ([place] Comment on above: Performed By: #### M ORPH, CBC, DIFF #### [address] [address] Calcium [Mass/Vol] 8.0 mg/dL Low 8.4-10.2 [facility] ([place] Comment on above: Performed By: #### M ORPH, CBC, DIFF #### [address] [address] Chloride [Moles/Vol] 104 mmol/L Normal 98-107 [facility] ([place] Comment on above: Performed By: #### M ORPH, CBC, DIFF #### [address] [address] CO2 [Moles/Vol] 29 mmol/L Normal 23-31 [facility] ([place] Comment on above: Performed By: #### M ORPH, CBC, DIFF #### [address] [address] Creatinine [Mass/Vol] 0.68 mg/dL Normal 0.55-1.02 [facility] [place] Comment on above: Performed By: #### M ORPH, CBC, DIFF #### [address] [address] Electrolyte Balance 8.0 mEq/L Normal 4.0-15.0 [facility] ([place] Comment on above: Performed By: #### M ORPH, CBC, DIFF #### [address] [address] Glucose [Mass/Vol] 86 mg/dL Normal 83-110 [facility] ([place] Comment on above: Performed By: #### M ORPH, CBC, DIFF #### [address] [address] Potassium [Moles/Vol] 3.9 mmol/L Normal 3.5-5.1 [facility] [place] Comment [place] above: Performed By: #### M ORPH, CBC, DIFF #### [address] [address] Sodium [Moles/Vol] 141 mmol/L Normal 136-145 [facility] ([place] Comment on above: Performed By: #### M ORPH, CBC, DIFF #### [address] [address] Urea nitrogen [Mass/Vol] 11 mg/dL Normal 7-18 [facility] ([place] Comment on above: Performed By: #### M ORPH, CBC, DIFF #### [address] [address] CBCon 02-04-2024 Erythrocyte distribution width (RBC) [Ratio] 15.9 % High 11.5-14.5 [facility] ([place] Comment on above: Performed By: #### M LISA, CBC, DIFF #### [address] [address] Hematocrit (Bld) [Volume fraction] 28.7 % Low 37.0-47.0 [facility] ([place] Comment on above: Performed By: #### M ORADILENE, CBC, DIFF #### [address] [address] Hgb 9.5 G/dL Low 12.0-16.0 [facility] ([place] Comment on above: Performed By: #### M LISA, CBC, DIFF #### [address] [address] MCH (RBC) [Entitic mass] 31.1 pg Normal 27.0-31.2 [facility] ([place] Comment on above: Performed By: #### M ORADILENE, CBC, DIFF #### [address] [address] MCHC 33.1 G/dL Normal 33.0-37.0 [facility] ([place] Comment on above: Performed By: #### M LISA, CBC, DIFF #### [address] [address] MCV (RBC) [Entitic vol] 93.9 fL Normal 80.0-94.0 [facility] ([place] Comment on above: Performed By: #### M ORADILENE, CBC, DIFF #### [address] [address] Platelet 187 10 3/mcL Normal 130-400 [facility] ([place] Comment on above: Performed By: #### M ORPH, CBC, DIFF #### [address] [address] Platelet mean volume (Bld) [Entitic vol] 7.4 fL Normal 7.4-10.4 [facility] ([place] Comment on above: Performed By: #### M ORPH, CBC, DIFF #### Rosa Maria[address] [address] RBC 3.05 10 6/mcL Low 4.20-5.40 [facility] ([place]) Comment on above: Performed By: #### M ORPH, CBC, DIFF #### [address] [address] WBC 4.8 10 3/mcL Normal 4.6-10.8 [facility] ([place]) Comment on above: Performed By: #### M ORPH, CBC, DIFF #### [address] [address] LABORATORYOrdered By: SYSTEM SYSTEM on 02-04-2024 Basophil, [...] 02-04-2024 Magnesium [Mass/Vol] 2.0 mg/dL Normal 1.8-2.4 [facility] ([place]) Comment on above: Performed By: #### M ORPH, CBC, DIFF #### [place] [address] No Panel Informationon 02-03 Microscopic examination of blood, culture Culture has been received in lab and is no growth to date. Routine cultures are held for 5 days. [facility] .Auto Diffon 02-03-2024 Basophil, Absolute 0.0 10 3/mcL Normal 0.0-0.2 [facility] ([place]) Comment on above: Performed By: #### A MANJULA, CBC, ADIFF, GFR, BMP #### [address] [address] Basophils/100 WBC (Bld) 0.7 % Normal 0.0-2.5 [facility] ([place]) Comment on above: Performed By: #### A MANJULA, CBC, ADIFF, GFR, BMP #### [address] [address] Eosinophil, Absolute 0.1 10 3/mcL Normal 0.0-0.4 [facility] ([place]) Comment on above: Performed By: #### A MANJULA, CBC, ADIFF, GFR, BMP #### [address] [address] Eosinophils/100 WBC (Bld) 2.4 % Normal 0.0-7.0 [facility] ([place] Comment on above: Performed By: #### A MANJULA, CBC, ADIFF, GFR, BMP #### [address] [address] Lymphocyte, Absolute 0.5 10 3/mcL Low 0.8-3.9 [facility] ([place] Comment on above: Performed By: #### A MANJULA, CBC, ADIFF, GFR, BMP #### [address] [address] Lymphocytes/100 WBC (Bld) 10.0 % Normal 10.0-50.0 [facility] ([place] Comment on above: Performed By: #### A MANJULA, CBC, ADIFF, GFR, BMP #### [address] [address] Monocyte, Absolute 0.5 10 3/mcL Normal 0.2-1.0 [facility] ([place] Comment on above: Performed By: #### A MANJULA, CBC, ADIFF, GFR, BMP #### [address] [address] Monocytes/100 WBC (Bld) 10.2 % Normal 1.7-13.0 [facility] ([place] Comment on above: Performed By: #### A MANJULA, CBC, ADIFF, GFR, BMP #### [address] [address] Neutrophils/100 WBC (Bld) 76.7 % Normal 37.0-80.0 [facility] ([place] Comment on above: Performed By: #### A MANJULA, CBC, ADIFF, GFR, BMP #### [place] [id number] [place], [place] [address] .GFRon 02-03-2024 GFR 103 ml/min/1.73sqm Normal [facility] ([place]) Comment on above: Result Comment: GFR Population [...] A MANJULA, CBC, ADIFF, GFR, BMP #### [address] [address] GFR Non- 85 ml/min/1.73sqm Normal [facility] ([place] Comment on above: Result Comment: GFR Population [...] A MANJULA, CBC, ADIFF, GFR, BMP #### [address] [address] .NEUABSon 02-03-2024 Neutrophil, Absolute 3.6 10 3/mcL Normal 2.9-6.2 [facility] ([place] Comment on above: Performed By: #### A MANJULA, CBC, ADIFF, GFR, BMP #### [address] [address] BMPon 02-03-2024 BUN/Creatinine Ratio 17 ratio Normal 7-27 [facility] ([place] Comment on above: Performed By: #### A MANJULA, CBC, ADIFF, GFR, BMP #### [address] [address] Calcium [Mass/Vol] 8.1 mg/dL Low 8.4-10.2 [facility] ([place]) Comment on above: Performed By: #### A MANJULA, CBC, ADIFF, GFR, BMP #### [place] [id number] Chloride [Moles/Vol] 104 mmol/L Normal 98-107 [facility] ([place]) Comment on above: Performed By: #### A MANJULA, CBC, ADIFF, GFR, BMP #### [place] [address] CO2 [Moles/Vol] 29 mmol/L Normal 23-31 [facility] ([place] Comment on above: Performed By: #### A MANJULA, CBC, ADIFF, GFR, BMP #### [address] [address] Creatinine [Mass/Vol] 0.66 mg/dL Normal 0.55-1.02 [facility] ([place] Comment on above: Performed By: #### A MANJULA, CBC, ADIFF, GFR, BMP #### [address] [address] Electrolyte Balance 8.0 mEq/L Normal 4.0-15.0 [facility] ([place]) Comment on above: Performed By: #### A MANJULA, CBC, ADIFF, GFR, BMP #### [place] [id number] Glucose [Mass/Vol] 89 mg/dL Normal 83-110 [facility] ([place]) Comment on above: Performed By: #### A MANJULA, CBC, ADIFF, GFR, BMP #### [address] [address] Potassium [Moles/Vol] 3.9 mmol/L Normal 3.5-5.1 [facility] [place] Comment on above: Performed By: #### A MANJULA, CBC, ADIFF, GFR, BMP #### [address] [address] Sodium [Moles/Vol] 141 mmol/L Normal 136-145 [facility] ([place] Comment on above: Performed By: #### A MANJULA, CBC, ADIFF, GFR, BMP #### [place] [address] Urea nitrogen [Mass/Vol] 11 mg/dL Normal 7-18 [facility] ([place] Comment on above: Performed By: #### A MANJULA, CBC, ADIFF, GFR, BMP #### [address] [address] CBCon 02-03-2024 Erythrocyte distribution width (RBC) [Ratio] 15.9 % High 11.5-14.5 [facility] ([place] Comment on above: Performed By: #### M G, CBC, BMP, ADIFF, ANEU, GFR #### [place] [phone] Hematocrit (Bld) [Volume fraction] 28.1 % Low 37.0-47.0 [facility] ([place] Comment on above: Performed By: #### M G, CBC, BMP, ADIFF, ANEU, GFR #### [place] [address] Hgb 9.4 G/dL Low 12.0-16.0 [facility] ([place] Comment on above: Performed By: #### M G, CBC, BMP, ADIFF, ANEU, GFR #### [address] [address] MCH (RBC) [Entitic mass] 31.1 pg Normal 27.0-31.2 [facility] ([place] Comment on above: Performed By: #### M G, CBC, BMP, ADIFF, ANEU, GFR #### [address] [address] MCHC 33.3 G/dL Normal 33.0-37.0 [facility] ([place] Comment on above: Performed By: #### M G, CBC, BMP, ADIFF, ANEU, GFR #### [place] [address] MCV (RBC) [Entitic vol] 93.4 fL Normal 80.0-94.0 [facility] ([place] Comment on above: Performed By: #### M G, CBC, BMP, ADIFF, ANEU, GFR #### [place] [address] Platelet 187 10 3/mcL Normal 130-400 [facility] ([place] Comment on above: Performed By: #### M G, CBC, BMP, ADIFF, ANEU, GFR #### [place] [address] Platelet mean volume (Bld) [Entitic vol] 7.7 fL Normal 7.4-10.4 [facility] ([place] Comment on above: Performed By: #### M G, CBC, BMP, ADIFF, ANEU, GFR #### [place] [address] RBC 3.01 10 6/mcL Low 4.20-5.40 [facility] ([place] Comment on above: Performed By: #### M G, CBC, BMP, ADIFF, ANEU, GFR #### [place] [phone] WBC 4.7 10 3/mcL Normal 4.6-10.8 [facility] ([place] Comment on above: Performed By: #### M G, CBC, BMP, ADIFF, ANEU, GFR #### [place] [address] LABORATORYOrdered By: SYSTEM SYSTEM on 02-03-2024 Basophil, [...] 02-03-2024 Magnesium [Mass/Vol] 2.0 mg/dL Normal 1.8-2.4 [facility] ([place]) Comment on above: Performed By: #### A MANJULA, CBC, ADIFF, GFR, BMP #### [address] [address] No Panel Informationon 02-02 GSANA Gram Positive Cocci in pairs [facility] Microscopic examination of blood, culture Culture has been received in lab and is no growth to date. Routine cultures are held for 5 days. [facility] .GFRon 02-02-2024 GFR 105 ml/min/1.73sqm Normal [facility] ([place]) Comment on above: Result Comment: GFR Population [...] By: #### M ORPH, CBC, DIFF #### [place] [address] GFR Non- 87 ml/min/1.73sqm Normal [facility] ([place]) Comment on above: Result Comment: GFR Population [...] By: #### M ORPH, CBC, DIFF #### [place] [address] .Manual Diffon 02-02-2024 Basophil %, Manual 0.0 % Normal 0.0-2.5 [facility] ([place]) Comment on above: Performed By: #### M ORPH, CBC, DIFF #### [place] [address] Basophil, Abs Manual 0.0 10 3/mcL Normal 0.0-0.2 [facility] ([place]) Comment on above: Performed By: #### M ORPH, CBC, DIFF #### [place] [address] Eosinophil %, Manual 0.0 % Normal 0.0-7.0 [facility] ([place]) Comment on above: Performed By: #### M ORPH, CBC, DIFF #### [place] [address] Eosinophil, Abs Manual 0.0 10 3/mcL Normal 0.0-0.4 [facility] ([place] Comment on above: Performed By: #### M ORPH, CBC, DIFF #### [address] [address] Lymphocyte %, Manual 13.0 % Normal 10.0-50.0 [facility] ([place] Comment on above: Performed By: #### M ORPH, CBC, DIFF #### [address] [address] Lymphocyte, Abs Manual 1.1 10 3/mcL Normal 0.8-3.9 [facility] ([place] Comment on above: Performed By: #### M ORPH, CBC, DIFF #### [address] [address] Monocyte %, Manual 5.0 % Normal 1.7-13.0 [facility] ([place] Comment on above: Performed By: #### M ORPH, CBC, DIFF #### [address] [address] Monocyte, Abs Manual 0.4 10 3/mcL Normal 0.2-1.0 [facility] ([place] Comment on above: Performed By: #### M ORPH, CBC, DIFF #### [address] [address] Neutrophil %, Manual 82.0 % High 37.0-80.0 [facility] ([place] Comment on above: Performed By: #### M ORPH, CBC, DIFF #### [address] [address] Neutrophil, Abs Manual 6.8 10 3/mcL High 2.9-6.2 [facility] ([place] Comment on above: Performed By: #### M ORPH, CBC, DIFF #### [address] [address] Nucleated RBC 0.0 /100 WBC Normal [facility] ([place] Comment on above: Performed By: #### M ORPH, CBC, DIFF #### [address] [address] .Morphon 02-02-2024 Anisocytosis Ql (Bld) 1+ Normal [facility] ([place] Comment [place] above: Performed By: #### M ORPH, CBC, DIFF #### [facility] [address] [place] [address] Microcytosis 1+ Normal [facility] ([place] Comment on above: Performed By: #### M ORPH, CBC, DIFF #### [place] [id number] [place] [address] Platelet Estimate Normal Normal [facility] ([place] Comment on above: Performed By: #### M ORPH, CBC, DIFF #### [facility] [address] [place] [address] BMPon 02-02-2024 BUN/Creatinine Ratio 23 ratio Normal 7-27 [facility] ([place] Comment on above: Performed By: #### U A #### [address] [address] Calcium [Mass/Vol] 8.1 mg/dL Low 8.4-10.2 [facility] ([place]) Comment on above: Performed By: #### U A #### [address] [address] Chloride [Moles/Vol] 103 mmol/L Normal 98-107 [facility] ([place] Comment on above: Performed By: #### U A #### [address] [address] CO2 [Moles/Vol] 28 mmol/L Normal 23-31 [facility] ([place] Comment on above: Performed By: #### U A #### [address] [address] Creatinine [Mass/Vol] 0.65 mg/dL Normal 0.55-1.02 [facility] [place] Comment [place] above: Performed By: #### U A #### [address] [address] Electrolyte Balance 8.0 mEq/L Normal 4.0-15.0 [facility] ([place]) Comment on above: Performed By: #### U A #### [address] [address] Glucose [Mass/Vol] 98 mg/dL Normal 83-110 [facility] ([place]) Comment on above: Performed By: #### U A #### [place] [id number] [place], [place] [address] Potassium [Moles/Vol] 3.7 mmol/L Normal 3.5-5.1 [facility] [place] Comment [place] above: Performed By: #### U A #### [place] [address] [place], [place] [address] Sodium [Moles/Vol] 139 mmol/L Normal 136-145 [facility] ([place] Comment on above: Performed By: #### U A #### [address] [address] Urea nitrogen [Mass/Vol] 15 mg/dL Normal 7-18 [facility] ([place] Comment on above: Performed By: #### U A #### [address] [address] CBCon 02-02-2024 Erythrocyte distribution width (RBC) [Ratio] 16.1 % High 11.5-14.5 [facility] ([place]) Comment on above: Order Comment: QNSQu estionable results Performed By: #### M ORPH, CBC, DIFF #### [address] [address] Platelet 187 10 3/mcL Normal 130-400 [facility] ([place] Comment on above: Order Comment: QNSQu estionable results Performed By: #### M ORPH, CBC, DIFF #### [address] [address] Platelet mean volume (Bld) [Entitic vol] 7.7 fL Normal 7.4-10.4 [facility] ([place] Comment on above: Order Comment: QNSQu estionable results Performed By: #### M ORPH, CBC, DIFF #### [address] [address] Hematocrit (Bld) [Volume fraction] 31.1 % Low 37.0-47.0 [facility] ([place] Comment on above: Order Comment: QNSQu estionable results Performed By: #### M ORPH, CBC, DIFF #### [place] [address] Hgb 10.3 G/dL Low 12.0-16.0 [facility] ([place] Comment on above: Order Comment: QNSQu estionable results Performed By: #### M ORPH, CBC, DIFF #### [place] [address] MCH (RBC) [Entitic mass] 31.1 pg Normal 27.0-31.2 [facility] ([place] Comment on above: Order Comment: QNSQu estionable results Performed By: #### M ORPH, CBC, DIFF #### [place] [address] MCHC 33.1 G/dL Normal 33.0-37.0 [facility] ([place] Comment on above: Order Comment: QNSQu estionable results Performed By: #### M ORPH, CBC, DIFF #### [place] [address] MCV (RBC) [Entitic vol] 94.0 fL Normal 80.0-94.0 [facility] ([place] Comment on above: Order Comment: QNSQu estionable results Performed By: #### M ORPH, CBC, DIFF #### [place] [address] RBC 3.30 10 6/mcL Low 4.20-5.40 [facility] ([place] Comment on above: Order Comment: QNSQu estionable results Performed By: #### M ORPH, CBC, DIFF #### [place] [address] WBC 8.4 10 3/mcL Normal 4.6-10.8 [facility] ([place] Comment on above: Order Comment: QNSQu estionable results Performed By: #### M ORPH, CBC, DIFF #### [place] [address] CT ABDOMEN/PELVIS W/CONTRAST on 02-02-2024 CT ABDOMEN/PELVIS [...] 02/02/2024 5:34:24 PM Ordering Provider: KUMAR Woody [facility] ([place]) LABORATORYOrdered By: SYSTEM SYSTEM on 02-02-2024 Anisocytosis [...] 02-02-2024 Magnesium [Mass/Vol] 2.0 mg/dL Normal 1.8-2.4 [facility] ([place]) Comment on above: Performed By: #### U A #### [address] [address] No Panel Informationon 02-01 Enterococcus faecalis Enterococcus faecalis [facility] GSAER Gram Positive Cocci in pairs [facility] Microscopic examination of blood, culture Enterococcus faecalis Isolated from aerobe bottle only. Refer to previous culture for susceptibility. [id number] collected 01-31-24 [facility] .GFRon 02-01-2024 GFR Non- 67 ml/min/1.73sqm Normal [facility] ([place] Comment on above: Result Comment: GFR Population [...] meters Performed By: #### U A #### [place] [id number] [place], [place] [address] GFR 82 ml/min/1.73sqm Normal [facility] ([place] Comment on above: Result Comment: GFR Population [...] meters Performed By: #### U A #### [address] [address] .Manual Diffon 02-01-2024 Neutrophil, Abs Manual 7.1 10 3/mcL High 2.9-6.2 [facility] ([place] Comment on above: Performed By: #### U A #### [address] [address] Bands 5.0 % Normal 0.0-5.0 [facility] ([place] Comment on above: Performed By: #### U A #### [address] [address] Basophil %, Manual 1.0 % Normal 0.0-2.5 [facility] ([place]) Comment on above: Performed By: #### U A #### [address] [address] Basophil, Abs Manual 0.1 10 3/mcL Normal 0.0-0.2 [facility] ([place] Comment on above: Performed By: #### U A #### [address] [address] Eosinophil %, Manual 1.0 % Normal 0.0-7.0 [facility] ([place] Comment on above: Performed By: #### U A #### [address] [address] Eosinophil, Abs Manual 0.1 10 3/mcL Normal 0.0-0.4 [facility] ([place] Comment on above: Performed By: #### U A #### [address] [address] Lymphocyte %, Manual 9.0 % Low 10.0-50.0 [facility] ([place] Comment on above: Performed By: #### U A #### [address] [address] Lymphocyte, Abs Manual 0.8 10 3/mcL Normal 0.8-3.9 [facility] ([place] Comment on above: Performed By: #### U A #### [address] [address] Monocyte %, Manual 5.0 % Normal 1.7-13.0 [facility] ([place] Comment on above: Performed By: #### U A #### [address] [address] Monocyte, Abs Manual 0.4 10 3/mcL Normal 0.2-1.0 [facility] ([place] Comment on above: Performed By: #### U A #### [address] [address] Neutrophil %, Manual 79.0 % Normal 37.0-80.0 [facility] ([place] Comment on above: Performed By: #### U A #### [address] [address] Nucleated RBC 0.0 /100 WBC Normal [facility] ([place] Comment on above: Performed By: #### U A #### [address] [address] .Morphon 02-01-2024 Ovalocytes 1+ Normal [facility] ([place] Comment on above: Performed By: #### U A #### [address] [address] Platelet Estimate Normal Normal [facility] ([place] Comment on above: Performed By: #### U A #### [address] [address] Toxic Gran 1+ Normal [facility] ([place] Comment on above: Performed By: #### U A #### [address] [address] Vacuolated Neutrophils 1+ Normal [facility] ([place] Comment on above: Performed By: #### U A #### [address] [address] CBCon 02-01-2024 Erythrocyte distribution width (RBC) [Ratio] 16.1 % High 11.5-14.5 [facility] ([place] Comment on above: Performed By: #### U A #### [address] [address] Hematocrit (Bld) [Volume fraction] 31.1 % Low 37.0-47.0 [facility] ([place] Comment on above: Performed By: #### U A #### [address] [address] Hgb 10.2 G/dL Low 12.0-16.0 [facility] ([place] Comment on above: Performed By: #### U A #### [address] [address] MCH (RBC) [Entitic mass] 30.9 pg Normal 27.0-31.2 [facility] ([place] Comment on above: Performed By: #### U A #### [address] [address] MCHC 32.9 G/dL Low 33.0-37.0 [facility] ([place] Comment on above: Performed By: #### U A #### [address] [address] MCV (RBC) [Entitic vol] 93.9 fL Normal 80.0-94.0 [facility] ([place] Comment on above: Performed By: #### U A #### [address] [address] Platelet 177 10 3/mcL Normal 130-400 [facility] ([place] Comment on above: Performed By: #### U A #### [address] [address] Platelet mean volume (Bld) [Entitic vol] 7.9 fL Normal 7.4-10.4 [facility] ([place] Comment on above: Performed By: #### U A #### [address] [address] RBC 3.31 10 6/mcL Low 4.20-5.40 [facility] ([place] Comment on above: Performed By: #### U A #### [address] [address] WBC 8.5 10 3/mcL Normal 4.6-10.8 [facility] ([place] Comment on above: Performed By: #### U A #### [address] [address] CMPon 02-01-2024 Albumin Level 2.5 G/dL Low 3.4-4.8 [facility] ([place] Comment on above: Performed By: #### U A #### [address] [address] Albumin/Globulin [Mass ratio] 0.6 {ratio} Low 1.1-2.5 [facility] ([place] Comment on above: Performed By: #### U A #### [address] [address] ALP [Catalytic activity/Vol] 90 U/L Normal 40-135 [facility] ([place] Comment on above: Performed By: #### U A #### [address] [address] ALT [Catalytic activity/Vol] 41 U/L Normal 14-59 [facility] ([place] Comment on above: Performed By: #### U A #### [address] [address] AST [Catalytic activity/Vol] 39 U/L Normal 10-40 [facility] ([place] Comment on above: Performed By: #### U A #### [address] [address] Bili Total 0.6 mg/dL Normal 0.2-1.0 [facility] ([place] Comment on above: Result Comment: Use of this assay is not recommended for patients undergoing treatment with eltrombopag due to the potential for falsely elevated results. Performed By: #### U A #### [address] [address] BUN/Creatinine Ratio 21 ratio Normal 7-27 [facility] ([place] Comment on above: Performed By: #### U A #### [address] [address] Calcium [Mass/Vol] 8.2 mg/dL Low 8.4-10.2 [facility] ([place] Comment on above: Performed By: #### U A #### [address] [address] Chloride [Moles/Vol] 99 mmol/L Normal 98-107 [facility] ([place] Comment on above: Performed By: #### U A #### [address] [address] CO2 [Moles/Vol] 26 mmol/L Normal 23-31 [facility] ([place] Comment on above: Performed By: #### U A #### [address] [address] Creatinine [Mass/Vol] 0.81 mg/dL Normal 0.55-1.02 [facility] [place] Comment [place] above: Performed By: #### U A #### [address] [address] Electrolyte Balance 12.0 mEq/L Normal 4.0-15.0 [facility] ([place] Comment on above: Performed By: #### U A #### [address] [address] Globulin 4.1 G/dL Normal [facility] ([place] Comment on above: Performed By: #### U A #### [address] [address] Glucose [Mass/Vol] 121 mg/dL High 83-110 [facility] ([place] Comment on above: Performed By: #### U A #### [place] [address] [place], [place] [address] Potassium [Moles/Vol] 4.3 mmol/L Normal 3.5-5.1 [facility] [place] Comment [place] above: Performed By: #### U A #### [place] [address] [place], [place] [address] Sodium [Moles/Vol] 137 mmol/L Normal 136-145 [facility] ([place] Comment on above: Performed By: #### U A #### [address] [address] Total Protein 6.6 G/dL Normal 6.4-8.2 [facility] ([place] Comment on above: Performed By: #### U A #### [place] [id number] [place], [place] [address] Urea nitrogen [Mass/Vol] 17 mg/dL Normal 7-18 [facility] ([place] Comment on above: Performed By: #### U A #### [address] [address] LABORATORYOrdered By: SYSTEM SYSTEM on 02-01-2024 Albumin [...] 02-01-2024 Magnesium [Mass/Vol] 2.0 mg/dL Normal 1.8-2.4 [facility] ([place] Comment on above: Performed By: #### U A #### [address] [address] No Panel Informationon 01-31 GSAER Gram Positive Cocci in [facility] GSANA Gram Positive Cocci in [facility] Microscopic examination of blood, culture Culture has been received in lab and is no growth to date. Routine cultures are held for 5 days. [facility] .Auto Diffon 01-31-2024 Basophil, Absolute 0.0 10 3/mcL Normal 0.0-0.2 [facility] ([place] Comment on above: Performed By: #### A MANJULA, CBC, ADIFF, GFR, BMP #### [address] [address] Basophils/100 WBC (Bld) 0.3 % Normal 0.0-2.5 [facility] ([place]) Comment on above: Performed By: #### A MANJULA, CBC, ADIFF, GFR, BMP #### [address] [address] Eosinophil, Absolute 0.0 10 3/mcL Normal 0.0-0.4 [facility] ([place]) Comment on above: Performed By: #### A MANJULA, CBC, ADIFF, GFR, BMP #### [address] [address] Eosinophils/100 WBC (Bld) 1.0 % Normal 0.0-7.0 [facility] ([place]) Comment on above: Performed By: #### A MANJULA, CBC, ADIFF, GFR, BMP #### [address] [address] Lymphocyte, Absolute 1.0 10 3/mcL Normal 0.8-3.9 [facility] ([place]) Comment on above: Performed By: #### A MANJULA, CBC, ADIFF, GFR, BMP #### [address] [address] Lymphocytes/100 WBC (Bld) 13.1 % Normal 10.0-50.0 [facility] ([place]) Comment on above: Performed By: #### A MANJULA, CBC, ADIFF, GFR, BMP #### [address] [address] Monocyte, Absolute 0.6 10 3/mcL Normal 0.2-1.0 [facility] ([place] Comment on above: Performed By: #### A MANJULA, CBC, ADIFF, GFR, BMP #### [address] [address] Monocytes/100 WBC (Bld) 8.7 % Normal 1.7-13.0 [facility] ([place] Comment on above: Performed By: #### A MANJULA, CBC, ADIFF, GFR, BMP #### [address] [address] Neutrophils/100 WBC (Bld) 76.7 % Normal 37.0-80.0 [facility] ([place] Comment on above: Performed By: #### A MANJULA, CBC, ADIFF, GFR, BMP #### [address] [address] .GFRon 01-31-2024 GFR 98 ml/min/1.73sqm Normal [facility] ([place] Comment on above: Result Comment: GFR Population [...] A MANJULA, CBC, ADIFF, GFR, BMP #### [address] [address] GFR Non- 81 ml/min/1.73sqm Normal [facility] ([place] Comment on above: Result Comment: GFR Population [...] A MANJULA, CBC, ADIFF, GFR, BMP #### [address] [address] .NEUABSon 01-31-2024 Neutrophil, Absolute 5.9 10 3/mcL Normal 2.9-6.2 [facility] ([place] Comment on above: Performed By: #### A MANJULA, CBC, ADIFF, GFR, BMP #### [address] [address] BCIDon 01-31-2024 Acinetobacter camryn-baumanii complex Not detected Normal Not Detected [facility] ([place]) Comment on above: Performed By: #### M ORPH, CBC, DIFF #### [place] [address] Bacteroides fragilis Not detected Normal Not Detected [facility] ([place]) Comment on above: Performed By: #### M ORPH, CBC, DIFF #### [address] [address] BCID Comment See Comment Normal [facility] ([place]) Comment on above: Result Comment: Anti microbial [...] By: #### M ORPH, CBC, DIFF #### [address] [address] Kasandra albicans Not detected Normal Not Detected [facility] ([place]) Comment on above: Performed By: #### M ORPH, CBC, DIFF #### [facility] [address] [place] [address] Kasandra auris Not detected Normal Not Detected [facility] ([place]) Comment on above: Performed By: #### M ORPH, CBC, DIFF #### [facility] [address] [place] [address] Kasandra glabrata Not detected Normal Not Detected [facility] ([place]) Comment on above: Performed By: #### M ORPH, CBC, DIFF #### [facility] [address] [place] [address] Kasandra krusei Not detected Normal Not Detected [facility] ([place]) Comment on above: Performed By: #### M ORPH, CBC, DIFF #### [place] [address] Kasandra parapsilosis Not detected Normal Not Detected [facility] ([place]) Comment on above: Performed By: #### M ORPH, CBC, DIFF #### [place] [address] Kasandra tropicalis Not detected Normal Not Detected [facility] ([place]) Comment on above: Performed By: #### M ORPH, CBC, DIFF #### [place] [address] Cryptococcus neoformans-gattii Not detected Normal Not Detected [facility] ([place]) Comment on above: Performed By: #### M ORPH, CBC, DIFF #### [place] [address] CTX-M (ESBL) Not Applicable Normal Not Detected [facility] ([place]) Comment on above: Performed By: #### M ORPH, CBC, DIFF #### [place] [address] E. Coli Not detected Normal Not Detected [facility] ([place]) Comment on above: Performed By: #### M ORPH, CBC, DIFF #### [place] [address] Enterobacter cloacae Complex Not detected Normal Not Detected [facility] ([place]) Comment on above: Performed By: #### M ORPH, CBC, DIFF #### [facility] [address] [place], [place] [address] Enterobacterales Not detected Normal Not Detected [facility] ([place]) Comment on above: Performed By: #### M ORPH, CBC, DIFF #### [facility] [address] [place] [address] Enterococcus faecalis Detected Abnormal Not Detected [facility] ([place]) Comment on above: Performed By: #### M ORPH, CBC, DIFF #### [facility] [address] [place] [address] Enterococcus faecium Not detected Normal Not Detected [facility] ([place]) Comment on above: Performed By: #### M ORPH, CBC, DIFF #### [facility] [address] [place] [address] Haemophilus influenzae Not detected Normal Not Detected [facility] ([place]) Comment on above: Performed By: #### M ORPH, CBC, DIFF #### [facility] [address] [place] [address] IMP (Carbapenemase) Not Applicable Normal Not Detected [facility] ([place]) Comment on above: Performed By: #### M ORPH, CBC, DIFF #### [facility] [address] [place] [address] Klebsiella aerogenes Not detected Normal Not Detected [facility] ([place]) Comment on above: Performed By: #### M ORPH, CBC, DIFF #### [facility] [address] [place] [address] Klebsiella oxytoca Not detected Normal Not Detected [facility] ([place]) Comment on above: Performed By: #### M ORPH, CBC, DIFF #### [facility] [address] [place] [address] Klebsiella pneumoniae group Not detected Normal Not Detected [facility] ([place]) Comment on above: Performed By: #### M ORPH, CBC, DIFF #### [facility] [address] [place] [address] KPC (Carbapenemase) Not Applicable Normal Not Detected [facility] ([place]) Comment on above: Performed By: #### M ORPH, CBC, DIFF #### [facility] [address] [place] [address] Listeria monocytogenes Not detected Normal Not Detected [facility] ([place]) Comment on above: Performed By: #### M ORPH, CBC, DIFF #### [facility] [address] [place] [address] MCR-1 (Colistin Resistance) Not Applicable Normal Not Detected [facility] ([place] Comment on above: Performed By: #### M ORPH, CBC, DIFF #### [facility] [address] [place] [address] Mec A/C Not Applicable Normal Not Detected [facility] ([place] Comment on above: Performed By: #### M ORPH, CBC, DIFF #### [facility] [address] [place] [address] Mec A/C-MREJ (MRSA) Not Applicable Normal Not Detected [facility] ([place] Comment on above: Performed By: #### M ORPH, CBC, DIFF #### [address] [address] NDM (Carbapenemase) Not Applicable Normal Not Detected [facility] ([place] Comment on above: Performed By: #### M ORPH, CBC, DIFF #### [place] [address] Neisseria meningitidis (Encapsalated) Not detected Normal Not Detected [facility] ([place] Comment on above: Performed By: #### M ORPH, CBC, DIFF #### [place] [address] OXA-48 like (Carbapenemase) Not Applicable Normal Not Detected [facility] ([place] Comment on above: Performed By: #### M ORPH, CBC, DIFF #### [place] [address] Proteus Not detected Normal Not Detected [facility] ([place]) Comment on above: Performed By: #### M ORPH, CBC, DIFF #### [facility] [address] [place] [address] Pseudomonas aeruginosa Not detected Normal Not Detected [facility] ([place]) Comment on above: Performed By: #### M ORPH, CBC, DIFF #### [facility] [address] [place] [address] S. agalactiae Org specific cx Ql (Vag fld) Not detected Normal Not Detected [facility] ([place]) Comment on above: Performed By: #### M ORPH, CBC, DIFF #### [facility] [address] [place] [address] Salmonella species Not detected Normal Not Detected [facility] ([place]) Comment on above: Performed By: #### M ORPH, CBC, DIFF #### [facility] [address] [place] [address] Serratia marcescens Not detected Normal Not Detected [facility] ([place]) Comment on above: Performed By: #### M ORPH, CBC, DIFF #### [facility] [address] [place] [address] Staphylococcus Not detected Normal Not Detected [facility] ([place]) Comment on above: Performed By: #### M ORPH, CBC, DIFF #### [facility] [address] [place] [address] Staphylococcus aureus Not detected Normal Not Detected [facility] ([place]) Comment on above: Result Comment: If S taphylococcus aureus is Detected, an Infectious Disease physician consult is required on identification. Performed By: #### M ORPH, CBC, DIFF #### [facility] [address] [place] [address] Staphylococcus epidermidis Not detected Normal Not Detected [facility] ([place]) Comment on above: Performed By: #### M ORPH, CBC, DIFF #### [facility] [address] [place] [address] Staphylococcus lugdunensis Not detected Normal Not Detected [facility] ([place]) Comment on above: Performed By: #### M ORPH, CBC, DIFF #### [facility] [address] [place] [address] Stenotrophomonas maltophilia Not detected Normal Not Detected [facility] ([place]) Comment on above: Performed By: #### M ORPH, CBC, DIFF #### [facility] [address] [place] [address] Streptococcus Not detected Normal Not Detected [facility] ([place]) Comment on above: Performed By: #### M ORPH, CBC, DIFF #### [facility] [address] [place] [address] Streptococcus pneumoniae Not detected Normal Not Detected [facility] ([place] Comment on above: Performed By: #### M ORPH, CBC, DIFF #### [address] [address] Streptococcus pyogenes Not detected Normal Not Detected [facility] ([place] Comment on above: Performed By: #### M ORPH, CBC, DIFF #### [address] [address] Van A/B Not detected Normal Not Detected [facility] ([place] Comment on above: Performed By: #### M ORPH, CBC, DIFF #### [place] [address] VIM (Carbapenemase) Not Applicable Normal Not Detected [facility] ([place] Comment on above: Performed By: #### M ORPH, CBC, DIFF #### [place] [address] CBCon 01-31-2024 Erythrocyte distribution width (RBC) [Ratio] 14.5 % Normal 11.5-14.5 [facility] ([place]) Comment on above: Performed By: #### A MANJULA, CBC, ADIFF, GFR, BMP #### [place] [id number] Hematocrit (Bld) [Volume fraction] 30.6 % Low 37.0-47.0 [facility] ([place]) Comment on above: Performed By: #### A MANJULA, CBC, ADIFF, GFR, BMP #### [place] [id number] Hgb 9.9 G/dL Low 12.0-16.0 [facility] ([place]) Comment on above: Performed By: #### A MANJULA, CBC, ADIFF, GFR, BMP #### [place] [phone] MCH (RBC) [Entitic mass] 30.6 pg Normal 27.0-31.2 [facility] ([place]) Comment on above: Performed By: #### A MANJULA, CBC, ADIFF, GFR, BMP #### [place] [id number] MCHC 32.6 G/dL Low 33.0-37.0 [facility] ([place]) Comment on above: Performed By: #### A MANJULA, CBC, ADIFF, GFR, BMP #### [address] [address] MCV (RBC) [Entitic vol] 93.6 fL Normal 80.0-94.0 [facility] ([place]) Comment on above: Performed By: #### A MANJULA, CBC, ADIFF, GFR, BMP #### [address] [address] Platelet 229 10 3/mcL Normal 130-400 [facility] ([place]) Comment on above: Performed By: #### A MANJULA, CBC, ADIFF, GFR, BMP #### [address] [address] Platelet mean volume (Bld) [Entitic vol] 7.6 fL Normal 7.4-10.4 [facility] ([place]) Comment on above: Performed By: #### A MANJULA, CBC, ADIFF, GFR, BMP #### [address] [address] RBC 3.27 10 6/mcL Low 4.20-5.40 [facility] ([place]) Comment on above: Performed By: #### A MANJULA, CBC, ADIFF, GFR, BMP #### [address] [address] WBC 7.6 10 3/mcL Normal 4.6-10.8 [facility] ([place]) Comment on above: Performed By: #### A MANJULA, CBC, ADIFF, GFR, BMP #### [address] [address] CMPon 01-31-2024 Albumin Level 2.4 G/dL Low 3.4-4.8 [facility] ([place]) Comment on above: Performed By: #### A MANJULA, CBC, ADIFF, GFR, BMP #### [address] [address] Albumin/Globulin [Mass ratio] 0.6 {ratio} Low 1.1-2.5 [facility] ([place]) Comment on above: Performed By: #### A MANJULA, CBC, ADIFF, GFR, BMP #### [address] [address] ALP [Catalytic activity/Vol] 88 U/L Normal 40-135 [facility] ([place]) Comment on above: Performed By: #### A MANJULA, CBC, ADIFF, GFR, BMP #### [address] [address] ALT [Catalytic activity/Vol] 36 U/L Normal 14-59 [facility] ([place]) Comment on above: Performed By: #### A MANJULA, CBC, ADIFF, GFR, BMP #### [address] [address] AST [Catalytic activity/Vol] 24 U/L Normal 10-40 [facility] ([place]) Comment on above: Performed By: #### A MANJULA, CBC, ADIFF, GFR, BMP #### [address] [address] Bili Total 0.6 mg/dL Normal 0.2-1.0 [facility] ([place]) Comment on above: Result Comment: Use of this assay is not recommended for patients undergoing treatment with eltrombopag due to the potential for falsely elevated results. Performed By: #### A MANJULA, CBC, ADIFF, GFR, BMP #### [address] [address] BUN/Creatinine Ratio 17 ratio Normal 7-27 [facility] ([place]) Comment on above: Performed By: #### A MANJULA, CBC, ADIFF, GFR, BMP #### [address] [address] Calcium [Mass/Vol] 8.2 mg/dL Low 8.4-10.2 [facility] ([place]) Comment on above: Performed By: #### A MANJULA, CBC, ADIFF, GFR, BMP #### [address] [address] Chloride [Moles/Vol] 103 mmol/L Normal 98-107 [facility] ([place]) Comment on above: Performed By: #### A MANJULA, CBC, ADIFF, GFR, BMP #### [address] [address] CO2 [Moles/Vol] 31 mmol/L Normal 23-31 [facility] ([place]) Comment on above: Performed By: #### A MANJULA, CBC, ADIFF, GFR, BMP #### [address] [address] Creatinine [Mass/Vol] 0.69 mg/dL Normal 0.55-1.02 [facility] ([place] Comment on above: Performed By: #### A MANJULA, CBC, ADIFF, GFR, BMP #### [address] [address] Electrolyte Balance 6.0 mEq/L Normal 4.0-15.0 [facility] ([place]) Comment on above: Performed By: #### A MANJULA, CBC, ADIFF, GFR, BMP #### [address] [address] Globulin 4.1 G/dL Normal [facility] ([place]) Comment on above: Performed By: #### A MANJULA, CBC, ADIFF, GFR, BMP #### [address] [address] Glucose [Mass/Vol] 112 mg/dL High 83-110 [facility] ([place]) Comment on above: Performed By: #### A MANJULA, CBC, ADIFF, GFR, BMP #### [address] [address] Potassium [Moles/Vol] 4.3 mmol/L Normal 3.5-5.1 [facility] ([place] Comment on above: Performed By: #### A MANJULA, CBC, ADIFF, GFR, BMP #### [address] [address] Sodium [Moles/Vol] 140 mmol/L Normal 136-145 [facility] ([place]) Comment on above: Performed By: #### A MANJULA, CBC, ADIFF, GFR, BMP #### [address] [address] Total Protein 6.5 G/dL Normal 6.4-8.2 [facility] ([place]) Comment on above: Performed By: #### A MANJULA, CBC, ADIFF, GFR, BMP #### [place] [address] Urea nitrogen [Mass/Vol] 12 mg/dL Normal 7-18 [facility]) Comment on above: Performed By: #### A MANJULA, CBC, ADIFF, GFR, BMP #### [place] [address] CVFLURVon 01-31-2024 FLU A PCR Negative Normal Negative [facility]) Comment on above: Performed By: #### A MANJULA, CBC, ADIFF, GFR, BMP #### [place] [address] FLU B PCR Negative Normal Negative [facility]) Comment on above: Performed By: #### A MANJULA, CBC, ADIFF, GFR, BMP #### [place] [address] RSV PCR Negative Normal Negative [facility]) Comment on above: Performed By: #### A MANJULA, CBC, ADIFF, GFR, BMP #### [place] [address] SARS-CoV-2 (COVID-19) RNA FAUSTO+probe Ql (Unsp spec) Negative Normal Negative [facility]) Comment on above: Result Comment: Resu lts [...] CBC, ADIFF, GFR, BMP #### [facility] [place] [id number] LABORATORYOrdered By: SYSTEM SYSTEM on 01-31-2024 Albumin [...] [#/Vol] 7.6 103/mcL Normal 4.6 - 10.8 10^3/[facility] Workflow SS LABORATORYOrdered By: Kavin Chao on [...] Auto Microbiology GL SS LABORATORYOrdered By: Sue Partick on 01-31-2024 FLUAV RNA FAUSTO+probe Ql (Resp) [...] Lactic Acid Lvl 1.3 mmol/L Normal 0.4-2.0 [facility] ([place]) Comment on above: Performed By: #### A MANJULA, CBC, ADIFF, GFR, BMP #### [facility] [address] [place], [place] [address] No Panel Informationon 01-30 GSAER Gram Positive Cocci in pairs [facility] GSANA Gram Positive Cocci in pairs [facility] Microscopic examination of blood, culture Enterococcus faecalis Isolated from aerobe and anaerobe bottles. ASHLEIGH to follow [facility] Microscopic examination of blood, culture Enterococcus faecalis Isolated from aerobe and anaerobe bottles. Final report to follow. [facility] XR CHEST 2 VIEWSon XR CHEST [...] Date: 01/31/2024 12:50:22 AM Ordering Provider: MALGORZATA [facility] ([place]) LABORATORYOrdered By: Beckie Alvarez on 01-30-2024 Appearance [...] SS UAon 01-30-2024 Color (U) Yellow Normal [facility] ([place]) Comment on above: Performed By: #### A MANJULA, CBC, ADIFF, GFR, BMP #### [address] [address] Glucose (U) [Mass/Vol] Negative Normal Negative [facility] ([place]) Comment on above: Performed By: #### A MANJULA, CBC, ADIFF, GFR, BMP #### [address] [address] Ketones Ql (U) Negative Normal Negative [facility] ([place]) Comment on above: Performed By: #### A MANJULA, CBC, ADIFF, GFR, BMP #### [address] [address] UA Appear Clear Normal Clear [facility] ([place] Comment on above: Performed By: #### A MANJULA, CBC, ADIFF, GFR, BMP #### [address] [address] UA Blood Negative Normal Negative [facility] ([place]) Comment on above: Performed By: #### A MANJULA, CBC, ADIFF, GFR, BMP #### [address] [address] UA Leuk Est Negative Normal Negative [facility] ([place]) Comment on above: Performed By: #### A MANJULA, CBC, ADIFF, GFR, BMP #### [address] [address] UA Nitrite Negative Normal Negative [facility] ([place]) Comment on above: Performed By: #### A MANJULA, CBC, ADIFF, GFR, BMP #### [address] [address] UA pH 7.0 Normal 5.0 - 8.0 [facility] ([place]) Comment on above: Performed By: #### A MANJULA, CBC, ADIFF, GFR, BMP #### [address] [address] UA Protein Negative Normal Negative [facility] ([place]) Comment on above: Performed By: #### A MANJULA, CBC, ADIFF, GFR, BMP #### [address] [address] UA Spec Grav 1.020 Normal 1.015-1.02 5 [facility] ([place]) Comment on above: Performed By: #### A MANJULA, CBC, ADIFF, GFR, BMP #### [address] [address] UA Specimen Type Straight Cath Normal [facility] ([place]) Comment on above: Performed By: #### A MANJULA, CBC, ADIFF, GFR, BMP #### [address] [address] UA Urobilinogen 2.0 E.U./dL Abnormal 0.2-1.0 [facility] ([place]) Comment on above: Performed By: #### A MANJULA, CBC, ADIFF, GFR, BMP #### [address] [address] Urobilinogen (U) [Mass/Vol] Negative Normal Negative [facility] ([place]) Comment on above: Performed By: #### A MANJULA, CBC, ADIFF, GFR, BMP #### [address] [address] .Auto Diffon 01-25-2024 Basophil, Absolute 0.0 10 3/mcL Normal 0.0-0.2 [facility] ([place]) Comment on above: Performed By: #### A MANJULA, CBC, ADIFF, GFR, BMP #### [address] [address] Basophils/100 WBC (Bld) 0.9 % Normal 0.0-2.5 [facility] ([place]) Comment on above: Performed By: #### A MANJULA, CBC, ADIFF, GFR, BMP #### [address] [address] Eosinophil, Absolute 0.0 10 3/mcL Normal 0.0-0.4 [facility] ([place]) Comment on above: Performed By: #### A MANJULA, CBC, ADIFF, GFR, BMP #### [address] [address] Eosinophils/100 WBC (Bld) 0.5 % Normal 0.0-7.0 [facility] ([place]) Comment on above: Performed By: #### A MANJULA, CBC, ADIFF, GFR, BMP #### [address] [address] Lymphocyte, Absolute 0.9 10 3/mcL Normal 0.8-3.9 [facility] ([place]) Comment on above: Performed By: #### A MANJULA, CBC, ADIFF, GFR, BMP #### [address] [address] Lymphocytes/100 WBC (Bld) 16.2 % Normal 10.0-50.0 [facility] ([place]) Comment on above: Performed By: #### A MANJULA, CBC, ADIFF, GFR, BMP #### [address] [address] Monocyte, Absolute 0.6 10 3/mcL Normal 0.2-1.0 [facility] ([place]) Comment on above: Performed By: #### A MANJULA, CBC, ADIFF, GFR, BMP #### [address] [address] Monocytes/100 WBC (Bld) 11.9 % Normal 1.7-13.0 [facility] ([place]) Comment on above: Performed By: #### A MANJULA, CBC, ADIFF, GFR, BMP #### [address] [address] Neutrophils/100 WBC (Bld) 70.5 % Normal 37.0-80.0 [facility] ([place]) Comment on above: Performed By: #### A MANJULA, CBC, ADIFF, GFR, BMP #### [address] [address] .GFRon 01-25-2024 GFR 92 ml/min/1.73sqm Normal [facility] ([place]) Comment on above: Result Comment: GFR Population [...] A MANJULA, CBC, ADIFF, GFR, BMP #### [address] [address] GFR Non- 76 ml/min/1.73sqm Normal [facility] ([place]) Comment on above: Result Comment: GFR Population [...] A MANJULA, CBC, ADIFF, GFR, BMP #### [address] [address] .NEUABSon 01-25-2024 Neutrophil, Absolute 3.8 10 3/mcL Normal 2.9-6.2 [facility] ([place]) Comment on above: Performed By: #### A MANJULA, CBC, ADIFF, GFR, BMP #### [address] [address] BMPon 01-25-2024 BUN/Creatinine Ratio 12 ratio Normal 7-27 [facility] ([place]) Comment on above: Performed By: #### A MANJULA, CBC, ADIFF, GFR, BMP #### [address] [address] Calcium [Mass/Vol] 8.2 mg/dL Low 8.4-10.2 [facility] ([place]) Comment on above: Performed By: #### A MANJULA, CBC, ADIFF, GFR, BMP #### [address] [address] Chloride [Moles/Vol] 100 mmol/L Normal 98-107 [facility] ([place]) Comment on above: Performed By: #### A MANJULA, CBC, ADIFF, GFR, BMP #### [address] [address] CO2 [Moles/Vol] 29 mmol/L Normal 23-31 [facility] ([place]) Comment on above: Performed By: #### A MANJULA, CBC, ADIFF, GFR, BMP #### [address] [address] Creatinine [Mass/Vol] 0.73 mg/dL Normal 0.55-1.02 [facility] [place] Comment on above: Performed By: #### A MANJULA, CBC, ADIFF, GFR, BMP #### [address] [address] Electrolyte Balance 6.0 mEq/L Normal 4.0-15.0 [facility] ([place]) Comment on above: Performed By: #### A MANJULA, CBC, ADIFF, GFR, BMP #### [address] [address] Glucose [Mass/Vol] 111 mg/dL High 83-110 [facility] ([place]) Comment on above: Performed By: #### A MANJULA, CBC, ADIFF, GFR, BMP #### [address] [address] Potassium [Moles/Vol] 4.0 mmol/L Normal 3.5-5.1 [facility] [place] Comment on above: Performed By: #### A MANJULA, CBC, ADIFF, GFR, BMP #### [place] [address] Sodium [Moles/Vol] 135 mmol/L Low 136-145 [facility] ([place]) Comment on above: Performed By: #### A MANJULA, CBC, ADIFF, GFR, BMP #### [place] [id number] Urea nitrogen [Mass/Vol] 9 mg/dL Normal 7-18 [facility] ([place]) Comment on above: Performed By: #### A MANJULA, CBC, ADIFF, GFR, BMP #### [address] [address] CBCon 01-25-2024 Erythrocyte distribution width (RBC) [Ratio] 15.5 % High 11.5-14.5 [facility] ([place]) Comment on above: Performed By: #### A MANJULA, CBC, ADIFF, GFR, BMP #### [address] [address] Hematocrit (Bld) [Volume fraction] 31.8 % Low 37.0-47.0 [facility] ([place]) Comment on above: Performed By: #### A MANJULA, CBC, ADIFF, GFR, BMP #### [place] [id number] [place], [place] [address] Hgb 10.3 G/dL Low 12.0-16.0 [facility] ([place]) Comment on above: Performed By: #### A MANJULA, CBC, ADIFF, GFR, BMP #### [address] [address] MCH (RBC) [Entitic mass] 30.5 pg Normal 27.0-31.2 [facility] ([place]) Comment on above: Performed By: #### A MANJULA, CBC, ADIFF, GFR, BMP #### [address] [address] MCHC 32.4 G/dL Low 33.0-37.0 [facility] ([place]) Comment on above: Performed By: #### A MANJULA, CBC, ADIFF, GFR, BMP #### [address] [address] MCV (RBC) [Entitic vol] 94.1 fL High 80.0-94.0 [facility] ([place]) Comment on above: Performed By: #### A MANJULA, CBC, ADIFF, GFR, BMP #### [address] [address] Platelet 255 10 3/mcL Normal 130-400 [facility] ([place]) Comment on above: Performed By: #### A MANJULA, CBC, ADIFF, GFR, BMP #### [address] [address] Platelet mean volume (Bld) [Entitic vol] 7.6 fL Normal 7.4-10.4 [facility] ([place]) Comment on above: Performed By: #### A MANJULA, CBC, ADIFF, GFR, BMP #### [address] [address] RBC 3.38 10 6/mcL Low 4.20-5.40 [facility] ([place]) Comment on above: Performed By: #### A MANJULA, CBC, ADIFF, GFR, BMP #### [id number] [place], [place] [address] WBC 5.4 10 3/mcL Normal 4.6-10.8 [facility] ([place]) Comment on above: Performed By: #### A MANJULA, CBC, ADIFF, GFR, BMP #### [id number] [place], [place] [address] LABORATORYOrdered By: SYSTEM SYSTEM on 01-25-2024 Basophil, [...] contact the Microbiology Laboratory within 48 hours [phone]. Bacteria Ur Cult Actinomyces naeslundii [place] Count 50,000-80,000 Normal [facility] Comment on above: Performed By: #### M 100.2200 ####[facility] [address] [place], [address] Basic Metabolic Profile (BMP )on 01-22-2024 BUN/CRE 14.9 RATIO Normal 10-20 [facility] Comment on above: Performed By: #### L 100.0100, L500.2500 #### [facility] Laboratory [address] [place], [address] CA,Total 9.1 mg/dL Normal 8.5-10.1 [facility] Comment on above: Performed By: #### L 100.0100, L500.2500 #### [facility] [address] [place], [address] Chloride [Moles/Vol] 105 mmol/L Normal 98-107 [facility] Comment on above: Performed By: #### L 100.0100, L500.2500 #### [facility] [address] [place], [address] CO2 [Moles/Vol] 24.0 mmol/L Normal 21.0-32.0 [facility] Comment on above: Performed By: #### L 100.0100, L500.2500 #### [facility] [address] [place], [address] Creatinine [Mass/Vol] 0.61 mg/dL Normal 0.55-1.02 [facility] Comment on above: Result Comment: The validity of the calculated GFR GFRAA in patients over 70 years has not been determined. Clinical correlation is essential. Performed By: #### L 100.0100, L500.2500 #### [facility] [address] [place], [address] ECRCL 48.20 ml/min Normal [facility] Comment on above: Performed By: #### L 100.0100, L500.2500 #### [facility] [address] [place], [address] EST GFR - AA 121 mL/min Normal >60 [facility] Comment on above: Result Comment: Afri can Singaporean GFR Calc Performed By: #### L 100.0100, L500.2500 #### [facility] [address] [place], [address] GAP 9 Normal 5-15 [facility] Comment on above: Performed By: #### L 100.0100, L500.2500 #### [facility] [address] [place], [address] GFR/1.73 sq M.predicted among non-blacks MDRD (S/P/Bld) [Vol rate/Area] 100 mL/min/{1.73_m2} Normal >60 [facility] Comment on above: Result Comment: Non- GFR Calc Performed By: #### L 100.0100, L500.2500 #### [facility] [address] [place], [address] Glucose [Mass/Vol] 106 mg/dL Normal 74-[address] [facility] Comment on above: Result Comment: Fast ing Glucose result from 100 to 125 mg/dL suggests IMPAIRED HOMEOSTASIS per A.D.A. criteria. Performed By: #### L 100.0100, L500.2500 #### [facility] [address] [place], [address] Potassium [Moles/Vol] 3.6 mmol/L Normal 3.5-5.1 [facility] Comment on above: Performed By: #### L 100.0100, L500.2500 #### [facility] [address] [place], [address] Sodium [Moles/Vol] 138 mmol/L Normal 136-[address] [facility] Comment on above: Performed By: #### L 100.0100, L500.2500 #### [facility] [address] [place], [address] Urea nitrogen [Mass/Vol] 9 mg/dL Normal 7-18 [facility] Comment on above: Performed By: #### L 100.0100, L500.2500 #### [facility] [address] [place], [address] CBC W/Diff, Automatedon 06- Absolute Lymph 0.94 X10 3/uL Normal 0.83-4.51 [facility] Comment on above: Performed By: #### L 100.0100, L500.2500 #### [facility] [address] [place], [address] Absolute Neut 3.1 X10 3/uL Normal 2.0-7.7 [facility] Comment on above: Performed By: #### L 100.0100, L500.2500 #### [facility] [address] [place], [address] Basophils/100 WBC (Bld) 0.8 % Normal 0-1 [facility] Comment on above: Performed By: #### L 100.0100, L500.2500 #### [facility] [address] [place], [address] Eosinophils/100 WBC (Bld) 1.0 % Normal 0-5 [facility] Comment on above: Performed By: #### L 100.0100, L500.2500 #### [facility] [address] [place], [address] Erythrocyte distribution width (RBC) [Ratio] 15.9 % High 11.6-14.6 [facility] Comment on above: Performed By: #### L 100.0100, L500.2500 #### [facility] [address] [place], [address] Hematocrit (Bld) [Volume fraction] 28.9 % Low 37-47 [facility] Comment on above: Performed By: #### L 100.0100, L500.2500 #### [facility] [address] [place], [address] Hemoglobin (Bld) [Mass/Vol] 9.0 g/dL Low 12.0-15.0 [facility] Comment on above: Performed By: #### L 100.0100, L500.2500 #### [facility] [address] [place], [address] IG% 0.200 Normal 0.0-0.9 [facility] Comment on above: Result Comment: IG% - Immature Granulocytes (promyelocytes, myelocytes and metamyelocytes) > 1% indicates that a LEFT SHIFT is Present. Performed By: #### L 100.0100, L500.2500 #### [facility] [address] [place], [address] Lymphocytes/100 WBC (Bld) 19.7 % Normal 19-41 [facility] Comment on above: Performed By: #### L 100.0100, L500.2500 #### [facility] [address] [place], [address] MCH (RBC) [Entitic mass] 30.3 pg Normal 27.0-32.0 [facility] Comment on above: Performed By: #### L 100.0100, L500.2500 #### [facility] [address] [place], [address] MCHC (RBC) [Mass/Vol] 31.1 g/dL Low 32-36 [facility] Comment on above: Performed By: #### L 100.0100, L500.2500 #### [facility] [address] [place], [address] MCV (RBC) [Entitic vol] 97.3 fL Normal 81-99 [facility] Comment on above: Performed By: #### L 100.0100, L500.2500 #### [facility] [address] [place], [address] Monocytes/100 WBC (Bld) 14.0 % High 0-10 [facility] Comment on above: Performed By: #### L 100.0100, L500.2500 #### [facility] [address] [place], [address] Neutrophils/100 WBC (Bld) 64.3 % Normal 47-70 [facility] Comment on above: Performed By: #### L 100.0100, L500.2500 #### [facility] [address] [place], [address] Nucleated RBC (Bld) [#/Vol] 0 10*3/uL Normal 0-5 [facility] Comment on above: Performed By: #### L 100.0100, L500.2500 #### [facility] [address] [place], [address] Platelet mean volume (Bld) [Entitic vol] 9.7 fL Normal 6.2-12.0 [facility] Comment on above: Performed By: #### L 100.0100, L500.2500 #### [facility] [address] [place], [address] Platelets (Bld) [#/Vol] 234 10*3/uL Normal 150-450 [facility] Comment on above: Performed By: #### L 100.0100, L500.2500 #### [facility] [address] [place], [address] RBC (Bld) [#/Vol] 2.97 10*6/uL Low 4.2-5.4 [facility] Comment on above: Performed By: #### L 100.0100, L500.2500 #### [facility] [address] [place], [address] RDW SD 55.8 fl High 35.1-43.9 [facility] Comment on above: Performed By: #### L 100.0100, L500.2500 #### [facility] [address] [place], [address] WBC (Bld) [#/Vol] 4.8 10*3/uL Normal 4.4-11.[address] [facility] Comment on above: Performed By: #### L 100.0100, L500.2500 #### [facility] [address] [place], [address] Basic Metabolic Profile (BMP )on 01-21-2024 BUN/CRE 14.5 RATIO Normal 10-20 [facility] Comment on above: Performed By: #### L 500.2500, L100.0100 ####[facility] [address] [place], [address] CA,Total 8.6 mg/dL Normal 8.5-10.1 [facility] Comment on above: Performed By: #### L 500.2500, L100.0100 ####[facility] [address] [place], [address] Chloride [Moles/Vol] 101 mmol/L Normal 98-107 [facility] Comment on above: Performed By: #### L 500.2500, L100.0100 ####[facility] [address] [place], [address] CO2 [Moles/Vol] 26.0 mmol/L Normal 21.0-32.0 [facility] Comment on above: Performed By: #### L 500.2500, L100.0100 ####[facility] [address] [place], [address] Creatinine [Mass/Vol] 0.55 mg/dL Normal 0.55-1.02 [facility] Comment on above: Result Comment: The validity of the calculated GFR GFRAA in patients over 70 years has not been determined. Clinical correlation is essential. Performed By: #### L 500.2500, L100.0100 ####[facility] [address] [place], [address] ECRCL 48.20 ml/min Normal [facility] Comment on above: Performed By: #### L 500.2500, L100.0100 ####[facility] [address] [place], [address] EST GFR - AA 135 mL/min Normal >60 [facility] Comment on above: Result Comment: Afri can [place]an GFR Calc Performed By: #### L 500.2500, L100.0100 ####[facility] [address] [place], [address] GAP 8 Normal 5-15 [facility] Comment on above: Performed By: #### L 500.2500, L100.0100 ####[facility] [address] [place], [address] GFR/1.73 sq M.predicted among non-blacks MDRD (S/P/Bld) [Vol rate/Area] 112 mL/min/{1.73_m2} Normal >60 [facility] Comment on above: Result Comment: Non- GFR Calc Performed By: #### L 500.2500, L100.0100 ####[facility] [address] [place], [address] Glucose [Mass/Vol] 114 mg/dL High 74-[address] [facility] Comment on above: Result Comment: Fast ing Glucose result from 100 to 125 mg/dL suggests IMPAIRED HOMEOSTASIS per A.D.A. criteria. Performed By: #### L 500.2500, L100.0100 ####[facility] [address] [place], [address] Potassium [Moles/Vol] 3.7 mmol/L Normal 3.5-5.1 [facility] Comment on above: Performed By: #### L 500.2500, L100.0100 ####[facility] [address] [place], [address] Sodium [Moles/Vol] 135 mmol/L Low 136-[address] [facility] Comment on above: Performed By: #### L 500.2500, L100.0100 ####[facility] [address] [place], [address] Urea nitrogen [Mass/Vol] 8 mg/dL Normal 7-18 [facility] Comment on above: Performed By: #### L 500.2500, L100.0100 ####[facility] [address] [place], [address] CBC W/Diff, Automatedon - Absolute Lymph 0.86 X10 3/uL Normal 0.83-4.51 [facility] Comment on above: Performed By: #### L 500.2500, L100.0100 #### [facility] [address] [place], [address] Absolute Neut 4.0 X10 3/uL Normal 2.0-7.7 [facility] Comment on above: Performed By: #### L 500.2500, L100.0100 #### [facility] [address] [place], [address] Basophils/100 WBC (Bld) 0.6 % Normal 0-1 [facility] Comment on above: Performed By: #### L 500.2500, L100.0100 #### [facility] [address] [place], [address] Eosinophils/100 WBC (Bld) 0.4 % Normal 0-5 [facility] Comment on above: Performed By: #### L 500.2500, L100.0100 #### [facility] [address] [place], [address] Erythrocyte distribution width (RBC) [Ratio] 16.0 % High 11.6-14.6 [facility] Comment on above: Performed By: #### L 500.2500, L100.0100 #### [facility] [address] [place], [address] Hematocrit (Bld) [Volume fraction] 29.1 % Low 37-47 [facility] Comment on above: Performed By: #### L 500.2500, L100.0100 #### [facility] [address] [place], [address] Hemoglobin (Bld) [Mass/Vol] 9.2 g/dL Low 12.0-15.0 [facility] Comment on above: Performed By: #### L 500.2500, L100.0100 #### [facility] [address] [place], [address] IG% 0.200 Normal 0.0-0.9 [facility] Comment on above: Result Comment: IG% - Immature Granulocytes (promyelocytes, myelocytes and metamyelocytes) > 1% indicates that a LEFT SHIFT is Present. Performed By: #### L 500.2500, L100.0100 #### [facility] [address] [place], [address] Lymphocytes/100 WBC (Bld) 15.9 % Low 19-41 [facility] Comment on above: Performed By: #### L 500.2500, L100.0100 #### [facility] [address] [place], [address] MCH (RBC) [Entitic mass] 30.9 pg Normal 27.0-32.0 [facility] Comment on above: Performed By: #### L 500.2500, L100.0100 #### [facility] [address] [place], [address] MCHC (RBC) [Mass/Vol] 31.6 g/dL Low 32-36 [facility] Comment on above: Performed By: #### L 500.2500, L100.0100 #### [facility] [address] [place], [address] MCV (RBC) [Entitic vol] 97.7 fL Normal 81-99 [facility] Comment on above: Performed By: #### L 500.2500, L100.0100 #### [facility] [address] [place], [address] Monocytes/100 WBC (Bld) 9.0 % Normal 0-10 [facility] Comment on above: Performed By: #### L 500.2500, L100.0100 #### [facility] [address] [place], [address] Neutrophils/100 WBC (Bld) 73.9 % High 47-70 [facility] Comment on above: Performed By: #### L 500.2500, L100.0100 #### [facility] [address] [place], [address] Nucleated RBC (Bld) [#/Vol] 0 10*3/uL Normal 0-5 [facility] Comment on above: Performed By: #### L 500.2500, L100.0100 #### [facility] [address] [place], [address] Platelet mean volume (Bld) [Entitic vol] 9.7 fL Normal 6.2-12.0 [facility] Comment on above: Performed By: #### L 500.2500, L100.0100 #### [facility] [address] [place], [address] Platelets (Bld) [#/Vol] 225 10*3/uL Normal 150-450 [facility] Comment on above: Performed By: #### L 500.2500, L100.0100 #### [facility] [address] [place], [address] RBC (Bld) [#/Vol] 2.98 10*6/uL Low 4.2-5.4 [facility] Comment on above: Performed By: #### L 500.2500, L100.0100 #### [facility] [address] [place], [address] RDW SD 57.5 fl High 35.1-43.9 [facility] Comment on above: Performed By: #### L 500.2500, L100.0100 #### [facility] [address] [place], [address] WBC (Bld) [#/Vol] 5.4 10*3/uL Normal 4.4-11.[address] [facility] Comment on above: Performed By: #### L 500.2500, L100.0100 #### [facility] [address] [place], [address] 12 Lead EKGon 01-20-2024 12 Lead EKG [facility] [address] [place] [address] 12 Lead EKG 01/20/24 1053 MR#: [id number] Acct: [id number] Name: STEFANO WASHINGTON Rep #: [id number] : 1940 83 From: Hector Anderson MD [...] ECG Confirmed by MONICA MOREJON, HECTOR ([id number]), desk editor KORI JULES ([id number]) on 01/24/2024 11:33:53 AM Referred By: Confirmed By:HECTOR ANDERSON MD 01/24/24 1133 Date Hetcor Anderson MD CC: Dr. Carl Encarnacion MD; Dr. Judi Mejias MD; Dr. Marilee Avitia MD Signed Normal [facility] Basic Metabolic Profile (BMP )on 01-20-2024 BUN/CRE 19.6 RATIO Normal - [facility] Comment on above: Order Comment: 1 Y Performed By: #### L 501.5425, L500.2500, L100.0100 #### [facility] [address] [place], [address] CA,Total 9.1 mg/dL Normal 8.5-10.1 [facility] Comment on above: Order Comment: 1 Y Performed By: #### L 501.5425, L500.2500, L100.0100 #### [facility] [address] [place], [address] Chloride [Moles/Vol] 100 mmol/L Normal 98-107 [facility] Comment on above: Order Comment: 1 Y Performed By: #### L 501.5425, L500.2500, L100.0100 #### [facility] [address] [place], [address] CO2 [Moles/Vol] 27.0 mmol/L Normal 21.0-32.0 [facility] Comment on above: Order Comment: 1 Y Performed By: #### L 501.5425, L500.2500, L100.0100 #### [facility] [address] [place], [address] Creatinine [Mass/Vol] 0.66 mg/dL Normal 0.55-1.02 [facility] Comment on above: Order Comment: 1 Y Result Comment: The validity of the calculated GFR GFRAA in patients over 70 years has not been determined. Clinical correlation is essential. Performed By: #### L 501.5425, L500.2500, L100.0100 #### [facility] [address] [place], [address] ECRCL 48.20 ml/min Normal [facility] Comment on above: Order Comment: 1 Y Performed By: #### L 501.5425, L500.2500, L100.0100 #### [facility] [address] [place], [address] EST GFR - AA 109 mL/min Normal >60 [facility] Comment on above: Order Comment: 1 Y Result Comment: Afri can [place]an GFR Calc Performed By: #### L 501.5425, L500.2500, L100.0100 #### [facility] [address] [place], [address] GAP 8 Normal 5-15 [facility] Comment on above: Order Comment: 1 Y Performed By: #### L 501.5425, L500.2500, L100.0100 #### [facility] [address] [place], [address] GFR/1.73 sq M.predicted among non-blacks MDRD (S/P/Bld) [Vol rate/Area] 90 mL/min/{1.73_m2} Normal >60 [facility] Comment on above: Order Comment: 1 Y Result Comment: Non- GFR Calc Performed By: #### L 501.5425, L500.2500, L100.0100 #### [facility] [address] [place], [address] Glucose [Mass/Vol] 116 mg/dL High 74-[address] [facility] Comment on above: Order Comment: 1 Y Result Comment: Fast ing Glucose result from 100 to 125 mg/dL suggests IMPAIRED HOMEOSTASIS per A.D.A. criteria. Performed By: #### L 501.5425, L500.2500, L100.0100 #### [facility] [address] [place], [address] Potassium [Moles/Vol] 3.8 mmol/L Normal 3.5-5.1 [facility] Comment on above: Order Comment: 1 Y Performed By: #### L 501.5425, L500.2500, L100.0100 #### [facility] [address] [place], [address] Sodium [Moles/Vol] 135 mmol/L Low 136-[address] [facility] Comment on above: Order Comment: 1 Y Performed By: #### L 501.5425, L500.2500, L100.0100 #### [facility] [address] [place], [address] Urea nitrogen [Mass/Vol] 13 mg/dL Normal 7-18 [facility] Comment on above: Order Comment: 1 Y Performed By: #### L 501.5425, L500.2500, L100.0100 #### [facility] [address] [place], [address] CBC W/Diff, Automatedon 01-07-2023 Absolute Lymph 0.88 X10 3/uL Normal 0.83-4.51 [facility] Comment on above: Performed By: #### L 501.5425, L500.2500, L100.0100 #### [facility] [address] [place], [address] Absolute Neut 6.2 X10 3/uL Normal 2.0-7.7 [facility] Comment on above: Performed By: #### L 501.5425, L500.2500, L100.0100 #### [facility] [address] [place], [address] Basophils/100 WBC (Bld) 0.3 % Normal 0-1 [facility] Comment on above: Performed By: #### L 501.5425, L500.2500, L100.0100 #### [facility] [address] [place], [address] Eosinophils/100 WBC (Bld) 0.0 % Normal 0-5 [facility] Comment on above: Performed By: #### L 501.5425, L500.2500, L100.0100 #### [facility] [address] [place], [address] Erythrocyte distribution width (RBC) [Ratio] 16.0 % High 11.6-14.6 [facility] Comment on above: Performed By: #### L 501.5425, L500.2500, L100.0100 #### [facility] [address] [place], [address] Hematocrit (Bld) [Volume fraction] 30.7 % Low 37-47 [facility] Comment on above: Performed By: #### L 501.5425, L500.2500, L100.0100 #### [facility] [address] [place], [address] Hemoglobin (Bld) [Mass/Vol] 9.5 g/dL Low 12.0-15.0 [facility] Comment on above: Performed By: #### L 501.5425, L500.2500, L100.0100 #### [facility] [address] [place], [address] IG% 0.400 Normal 0.0-0.9 [facility] Comment on above: Result Comment: IG% - Immature Granulocytes (promyelocytes, myelocytes and metamyelocytes) > 1% indicates that a LEFT SHIFT is Present. Performed By: #### L 501.5425, L500.2500, L100.0100 #### [facility] [address] [place], [address] Lymphocytes/100 WBC (Bld) 11.6 % Low 19-41 [facility] Comment on above: Performed By: #### L 501.5425, L500.2500, L100.0100 #### [facility] [address] [place], [address] MCH (RBC) [Entitic mass] 30.3 pg Normal 27.0-32.0 [facility] Comment on above: Performed By: #### L 501.5425, L500.2500, L100.0100 #### [facility] [address] [place], [address] MCHC (RBC) [Mass/Vol] 30.9 g/dL Low 32-36 [facility] Comment on above: Performed By: #### L 501.5425, L500.2500, L100.0100 #### [facility] [address] [place], [address] MCV (RBC) [Entitic vol] 97.8 fL Normal 81-99 [facility] Comment on above: Performed By: #### L 501.5425, L500.2500, L100.0100 #### [facility] [address] [place], [address] Monocytes/100 WBC (Bld) 6.6 % Normal 0-10 [facility] Comment on above: Performed By: #### L 501.5425, L500.2500, L100.0100 #### [facility] [address] [place], [address] Neutrophils/100 WBC (Bld) 81.1 % High 47-70 [facility] Comment on above: Performed By: #### L 501.5425, L500.2500, L100.0100 #### [facility] [address] [place], [address] Nucleated RBC (Bld) [#/Vol] 0 10*3/uL Normal 0-5 [facility] Comment on above: Performed By: #### L 501.5425, L500.2500, L100.0100 #### [facility] [address] [place], [address] Platelet mean volume (Bld) [Entitic vol] 9.3 fL Normal 6.2-12.0 [facility] Comment on above: Performed By: #### L 501.5425, L500.2500, L100.0100 #### [facility] [address] [place], [address] Platelets (Bld) [#/Vol] 257 10*3/uL Normal 150-450 [facility] Comment on above: Performed By: #### L 501.5425, L500.2500, L100.0100 #### [facility] [address] [place], [address] RBC (Bld) [#/Vol] 3.14 10*6/uL Low 4.2-5.4 [facility] Comment on above: Performed By: #### L 501.5425, L500.2500, L100.0100 #### [facility] [address] [place], [address] RDW SD 57.1 fl High 35.1-43.9 [facility] Comment on above: Performed By: #### L 501.5425, L500.2500, L100.0100 #### [facility] [address] [place], [address] WBC (Bld) [#/Vol] 7.6 10*3/uL Normal 4.4-11.[address] [facility] Comment on above: Performed By: #### L 501.5425, L500.2500, L100.0100 #### [facility] [address] [place], [address] Cardiac Cath Diagnosticon Cardiac Cath Diagnostic [facility] Imaging Services [address] [place] [address] Cardiac Cath Diagnostic MR#: [id number] Acct: [id number] Name: STEFANO WASHINGTON Rep #: [id number] : 1940 83 From: Hector Anderson MD PCP: Dr. Carl Encarnacion MD Status:ADM IN Patient Name: STEFANO WASHINGTON Study Date: 01/20/2024 Performing: Hector Anderson MD Ht: 60 inches 152.4 cm : 1940 Wt: 170.99 lbs 77.56 kg Age: 83 Gender: female BSA: 1.75 PROCEDURE(S) PERFORMED DC01-(34416)LHC/COR/LV CLINICAL PROFILE AND INDICATIONS Indications: Suspected CAD [...] multiple views using a 5 Fr. 4.0 [place] catheter. Left Coronary Artery selective angiography was performed in multiple views using a 5 Fr. 4.0 [place] catheter. Left Ventriculography was performed in [place] [...] Dictated: 01/20/24 1338 Date Transcribed: 01/20/24 1413 Imaging Engineer: [place] Signed Normal [facility] Chest 1 View (Portable)on Chest 1 View (Portable) [facility] Imaging Services [address] [place] [address] [id number] Chest 1 View (Portable) MR#: [id number] Acct: [id number] Name: STEFANO WASHINGTON Rep #: [id number] : 1940 F 83 From: Sixto negrete MD PCP: Dr. Carl Encarnacion MD Status: REG ER Study: Chest 1 View (Portable) Date of Exam: 01/20/24 Exam# [id number] Ordering Dr: Judi Mejias MD [id number] STUDY: X-RAY CHEST REASON FOR EXAM: Female, [...] 12:12 EDT Reading Location ID and State: [facility] / [place] , Service support , CC: Dr. Carl Encarnacion MD; Dr. Judi Mejias MD Imaging Engineer: Signed Normal [facility] Consultation - Cardiologyon 01-20-2024 Consultation - Cardiology [facility] Medical Records Department [address] [place] [address] Consultation - Cardiology 01/20/24 1316 MR#: [id number] Acct: [id number] Name: STEFANO WASHINGTON Rep #: [id number] : 1940 83 From: Hector Anderson MD PCP: Dr. Calr Encarnacion MD Status:ADM IN Location: [place] [address] Assessment Plan Assessment/Plan (1) Non-ST elevation WI (NSTEMI): PLAN: She presents with atypical presentation [...] infection. She also had been admitted to [facility] in [place] where she underwent an evaluation with an [...] was called for further evaluation and management. [facility] Medical History Chronic pain Rheumatoid [...] or syn (more content not included)... Normal [facility] Echo Completeon 01-20-2024 Echo Complete [facility] Cardiovascular Services [address] [place] [address] Echo Complete 01/20/24 1502 MR#: [id number] Acct: [id number] Name: STEFANO WASHINGTON Rep #: [id number] : 1940 83 From: Hector Anderson MD [...] Dictated: 01/20/24 1502 Date Transcribed: 01/20/24 1615 Imaging Engineer: Signed Normal [facility] Emergency Department Summary on 01-20-2024 Emergency Department Summary [facility] Medical Records Department [address] [place] [address] Emergency Department Summary 01/20/24 MR#: [id number] Acct: [id number] Name: STEFANO WASHINGTON Rep #: [id number] : 1940 83 From: Judi Mejias MD PCP: Dr. Carl Encarnacion MD Status:ADM IN Location: [place] [address]1 HPI History of Present Illness Chief Complaint: [...] finished an antibiotic for a kidney infection. [facility] Medical History Chronic pain Rheumatoid arthritis [...] on ca (more content not included)... Normal [facility]P Exam - Hospitalist [facility] Medical Records Department [address] [place] [address] H P Exam - Hospitalist 01/20/24 1255 MR#: [id number] Acct: [id number] Name: STEFANO WASHINGTON Rep #: [id number] : 1940 83 From: Marilee Avitia MD PCP: Dr. Carl Encarnacion MD Status:ADM IN Location: [place] [address] HPI - General General Date of Admission: [...] in the ED were BP of 103/53, MO of 95, RR of 18 and oxygen sats of 94% on room air. CBC showed hemoglobin of 9.5 with WBC of 7.6 and platelets of 257. Chemistry showed sodium of 135, potassium of 3.8 and Cr of 0.66. Initial troponin was 3264. EKG showed no acute ST changes. She is being admitted to be managed for nonstemi. She was taken to the clinical laboratory medical director from the ED. Cardiac cath showed evidence of Takotsubo cardiomyopathy. [facility] Medical History Chronic pain Rheumatoid [...] conjunctivae normal (more content not included)... Normal [facility] L501.4020on 01-20-2024 TROPONIN-I HS 2756 pg/mL Invalid Interpretation Code 3.0-54.0 [facility] Comment on above: Result Comment: Crit ical Result(s) Called at: 14:35:57 01/20/2024 by: edita Garcia Results read back by same. Please Note: New Test Units and Gender Specific Reference Ranges. For more information see Policy Stat Procedure [place] High Sensitivity Troponin (TNIH) and attachments. Performed By: #### L 501.4020 #### [facility] [address] [place], [address] L501.5425on 01-20-2024 TROPONIN-I HS 3264 pg/mL Invalid Interpretation Code 3.0-54.0 [facility] Comment on above: Order Comment: 1 Y Result Comment: Crit ical Result(s) Called at: 11:56:48 01/20/2024 by:edita Valdes. Results read back by same. Please Note: New Test Units and Gender Specific Reference Ranges. For more information see Policy Stat Procedure [place] High Sensitivity Troponin (TNIH) and attachments. Performed By: #### L 501.5425, L500.2500, L100.0100 #### [facility] [address] [place], [address] Urinalysis, Completeon 01-19 BACTERIA 2+ /hpf Normal None Seen [facility] Comment on above: Order Comment: MARQUIS TER SPECIMEN Performed By: #### L 400.0001 #### [facility] [address] [place], [address] RBC 0-5 SEEN Normal 0-5 [facility] Comment on above: Order Comment: MARQUIS TER SPECIMEN Performed By: #### L 400.0001 #### [facility] [address] [place], [address] WBC 5-10 SEEN Normal 0-5 [facility] Comment on above: Order Comment: MARQUIS TER SPECIMEN Performed By: #### L 400.0001 #### [facility] [address] [place], [address] EPI,SQUAMOUS 0 SEEN Normal 5-10 [facility] Comment on above: Order Comment: MARQUIS TER SPECIMEN Performed By: #### L 400.0001 #### [facility] [address] [place], [address] Mucus Ql (Urine sed) 0 SEEN Normal [facility] Comment on above: Order Comment: MARQUIS TER SPECIMEN Performed By: #### L 400.0001 #### [facility] [address] [place], [address] Bacteria Ur Culton 4 Bacteria identified Cx Nom (U) ORGANISM ID: 1 10,000 -<50,000 CFU/ml Normal urogenital raghu Normal [facility] Comment on above: Performed By: #### 6 30-4 ####[facility] [id number] [id number] [place] [address] [place] CNPNon 01-11-2024 CNPN Normal [facility] CNPNon 01-07-2024 CNPN Normal [facility] CNPNon 01-06-2024 CNPN Normal [facility] Bacteria Ur Culton 4 Bacteria identified Cx Nom (U) Abnormal [facility] Comment on above: Performed By: #### 6 30-4 ####[facility] [id number] [address] [address] [place] CNPNon 12-16-2023 CNPN Normal [facility] CNPNon 12-15-2023 CNPN Normal [facility] CNPNon 12-14-2023 CNPN Normal [facility] Bacteria Ur Culton Bacteria identified Cx Nom (U) Abnormal [facility] Comment on above: Performed By: #### 6 30-4 ####[facility] [id number] [place] [address] [place] CNOVon 12-13-2023 CNOV Normal [facility] CNPNon 12-13-2023 CNPN Normal [facility] URINALYSIS, REFLEX MICROSCOP ICon 12-13-2023 BACTERIA UL >9821 High Negative [facility] Comment on above: Order Comment: Speci men Type: URINE SPECIMENOrdering Facility: [facility] Address: [address] [place] [address] Performed By: #### L [id number] ####[facility] [id number] [place] [address] [place] Bilirubin Ql (U) Negative Normal Negative [facility] Comment on above: Order Comment: Speci men Type: URINE SPECIMENOrdering Facility: [facility] Address: [address] [place] [address] Performed By: #### L [id number] ####[facility] [id number] [place] [address] [place] Clarity (Unsp spec) Cloudy Abnormal Clear [facility] Comment on above: Order Comment: Speci men Type: URINE SPECIMENOrdering Facility: [facility] Address: [address] [place] [address] Performed By: #### L [id number] ####[facility] [id number] [place] [address] [place] Color (U) Yellow Normal Yellow [facility] Comment on above: Order Comment: Speci men Type: URINE SPECIMENOrdering Facility: [facility] Address: [address] [place] [address] Performed By: #### L [id number] ####[facility] [id number] [place] [address] [place] Epithelial cells LM.HPF (Urine sed) [#/Area] Moderate Normal [facility] Comment on above: Order Comment: Speci men Type: URINE SPECIMENOrdering Facility: [facility] Address: [address] [place] [address] Performed By: #### L [id number] ####[facility] [id number] [place] [address] [place] Glucose Test strip (U) [Mass/Vol] Negative Normal Negative [facility] Comment on above: Order Comment: Speci men Type: URINE SPECIMENOrdering Facility: [facility] Address: [address] [place] [address] Performed By: #### L [id number] ####[facility] [id number] [place] [address] [place] Hemoglobin Ql (U) Trace Abnormal Negative [facility] Comment on above: Order Comment: Speci men Type: URINE SPECIMENOrdering Facility: [facility] Address: [address] [place] [address] Performed By: #### L [id number] ####[facility] LABIA [id number] [place] [address] [place] Hyaline casts (Urine sed) [#/Area] 1-3 /LPF Abnormal 0 /LPF [facility] Comment on above: Order Comment: Speci men Type: URINE SPECIMENOrdering Facility: [facility] Address: [address] [place] [address] Performed By: #### L [id number] ####[facility] [id number] [place] [address] [place] Ketones Ql (U) Negative Normal Negative [facility] Comment on above: Order Comment: Speci men Type: URINE SPECIMENOrdering Facility: [facility] Address: [address] [place] [address] Performed By: #### L [id number] ####[facility] [id number] [place] [address] [place] Leukocyte esterase Test strip Ql (U) 3+ Abnormal Negative [facility] Comment on above: Order Comment: Speci men Type: URINE SPECIMENOrdering Facility: [facility] Address: [address] [place] [address] Performed By: #### L [id number] ####[facility] [id number] [place] [address] [place] Nitrite Ql (U) Negative Normal Negative [facility] Comment on above: Order Comment: Speci men Type: URINE SPECIMENOrdering Facility: [facility] Address: [address] [place] [address] Performed By: #### L [id number] ####[facility] [id number] [place] [address] [place] pH (U) 7.5 [pH] Normal <8.5 [facility] Comment on above: Order Comment: Speci men Type: URINE SPECIMENOrdering Facility: [facility] Address: [address] [place] [address] Performed By: #### L [id number] ####[facility] [id number] [place] [address] [place] Protein (U) [Mass/Vol] Trace Abnormal Negative Cl [facility] Comment on above: Order Comment: Speci men Type: URINE SPECIMENOrdering Facility: [facility] Address: [address] [place] [address] Performed By: #### L [id number] ####[facility]CL[facility] [id number] [place] [address] [place] RBC LM.HPF (Urine sed) [#/Area] /[HPF] Abnormal 0-2 /HPF [facility] Comment on above: Order Comment: Speci men Type: URINE SPECIMENOrdering Facility: [facility] Address: [address] [place] [address] Performed By: #### L [id number] ####[place] [id number] [place] [address] [place] Specific gravity (U) [Rel density] 1.008 Normal 1.005-1.03 0 [facility] Comment on above: Order Comment: Speci men Type: URINE SPECIMENOrdering Facility: [facility] Address: [address] [place] [address] Performed By: #### L [id number] ####[place] [id number] [place] [address] [place] Urobilinogen Ql (U) 0.2 EU/dL Normal 0.2-1.0 EU/dL [facility] Comment on above: Order Comment: Speci men Type: URINE SPECIMENOrdering Facility: [facility] Address: [address] [place] [address] Performed By: #### L [id number] ####[place] [id number] [place] [address] [place] WBC LM.HPF (Urine sed) [#/Area] /[HPF] Abnormal 0-5 /HPF [facility] Comment on above: Order Comment: Speci men Type: URINE SPECIMENOrdering Facility: [facility] Address: [address] [place] [address] Performed By: #### L [id number] ####[facility] [id number] [place] [address] [place] Yeast.budding LM.HPF (Urine sed) [#/Area] Present Abnormal None Seen [facility] Comment on above: Order Comment: Speci men Type: URINE SPECIMENOrdering Facility: [facility] Address: [address] [place] [address] Performed By: #### L [id number] ####[facility]CLIA [id number] [facility] [id number] [address] [place] .GFRon 12-09-2023 GFR 72 ml/min/1.73sqm Normal [facility] ([place]) Comment on above: Result Comment: GFR Population [...] CBC, ADIFF, GFR, BMP #### Rosa Maria [address] [address] GFR Non- 60 ml/min/1.73sqm Normal [facility] ([place]) Comment on above: Result Comment: GFR Population [...] CBC, ADIFF, GFR, BMP #### Rosa Maria [address] [address] BMPon 12-09-2023 BUN/Creatinine Ratio 19 ratio Normal 7-27 [facility] ([place]) Comment on above: Performed By: #### A MANJULA, CBC, ADIFF, GFR, BMP #### [address] [address] Calcium [Mass/Vol] 8.5 mg/dL Normal 8.4-10.2 [facility] ([place]) Comment on above: Performed By: #### A MANJULA, CBC, ADIFF, GFR, BMP #### [address] [address] Chloride [Moles/Vol] 103 mmol/L Normal 98-107 [facility] ([place]) Comment on above: Performed By: #### A MANJULA, CBC, ADIFF, GFR, BMP #### [address] [address] CO2 [Moles/Vol] 31 mmol/L Normal 23-31 [facility] ([place]) Comment on above: Performed By: #### A MANJULA, CBC, ADIFF, GFR, BMP #### [address] [address] Creatinine [Mass/Vol] 0.90 mg/dL Normal 0.55-1.02 [facility] ([place] Comment on above: Performed By: #### A MANJULA, CBC, ADIFF, GFR, BMP #### [address] [address] Electrolyte Balance 9.0 mEq/L Normal 4.0-15.0 [facility] ([place]) Comment on above: Performed By: #### A MANJULA, CBC, ADIFF, GFR, BMP #### [address] [address] Glucose [Mass/Vol] 98 mg/dL Normal 83-110 [facility] ([place]) Comment on above: Performed By: #### A MANJULA, CBC, ADIFF, GFR, BMP #### [address] [address] Potassium [Moles/Vol] 4.1 mmol/L Normal 3.5-5.1 [facility] ([place] Comment on above: Performed By: #### A MANJULA, CBC, ADIFF, GFR, BMP #### [place] [id number] [place], [place] [address] Sodium [Moles/Vol] 143 mmol/L Normal 136-145 [facility] ([place]) Comment on above: Performed By: #### A MANJULA, CBC, ADIFF, GFR, BMP #### [place] [address] [place], [place] [address] Urea nitrogen [Mass/Vol] 17 mg/dL Normal 7-18 [facility] ([place]) Comment on above: Performed By: #### A MANJULA, CBC, ADIFF, GFR, BMP #### [place] [address] [place], [place] [address] LABORATORYOrdered By: SYSTEM SYSTEM on 12-09-2023 Calcium [...] Basophil, Absolute 0.0 10 3/mcL Normal 0.0-0.2 [facility] ([place]) Comment on above: Performed By: #### A MANJULA, CBC, ADIFF, GFR, BMP #### [address] [address] Basophils/100 WBC (Bld) 0.5 % Normal 0.0-2.5 [facility] ([place]) Comment on above: Performed By: #### A MANJULA, CBC, ADIFF, GFR, BMP #### [address] [address] Eosinophil, Absolute 0.1 10 3/mcL Normal 0.0-0.4 [facility] ([place]) Comment on above: Performed By: #### A MANJULA, CBC, ADIFF, GFR, BMP #### [address] [address] Eosinophils/100 WBC (Bld) 2.3 % Normal 0.0-7.0 [facility] ([place]) Comment on above: Performed By: #### A MANJULA, CBC, ADIFF, GFR, BMP #### [address] [address] Lymphocyte, Absolute 0.9 10 3/mcL Normal 0.8-3.9 [facility] ([place]) Comment on above: Performed By: #### A MANJULA, CBC, ADIFF, GFR, BMP #### [address] [address] Lymphocytes/100 WBC (Bld) 18.4 % Normal 10.0-50.0 [facility] ([place]) Comment on above: Performed By: #### A MANJULA, CBC, ADIFF, GFR, BMP #### [address] [address] Monocyte, Absolute 0.3 10 3/mcL Normal 0.2-1.0 [facility] ([place]) Comment on above: Performed By: #### A MANJULA, CBC, ADIFF, GFR, BMP #### [address] [address] Monocytes/100 WBC (Bld) 5.9 % Normal 1.7-13.0 [facility] ([place]) Comment on above: Performed By: #### A MANJULA, CBC, ADIFF, GFR, BMP #### [address] [address] Neutrophils/100 WBC (Bld) 72.9 % Normal 37.0-80.0 [facility] ([place]) Comment on above: Performed By: #### A MANJULA, CBC, ADIFF, GFR, BMP #### [address] [address] .GFRon 12-03-2023 GFR Non- 64 ml/min/1.73sqm Normal [facility] ([place]) Comment on above: Result Comment: GFR Population [...] meters Performed By: #### U A #### [address] [address] GFR 77 ml/min/1.73sqm Normal [facility] ([place]) Comment on above: Result Comment: GFR Population [...] meters Performed By: #### U A #### [address] [address] .NEUABSon 12-03-2023 Neutrophil, Absolute 3.5 10 3/mcL Normal 2.9-6.2 [facility] ([place]) Comment on above: Performed By: #### A MANJULA, CBC, ADIFF, GFR, BMP #### [address] [address] BMPon 12-03-2023 BUN/Creatinine Ratio 14 ratio Normal 7-27 [facility] ([place]) Comment on above: Performed By: #### A MANJULA, CBC, ADIFF, GFR, BMP #### [address] [address] Calcium [Mass/Vol] 8.5 mg/dL Normal 8.4-10.2 [facility] ([place]) Comment on above: Performed By: #### A MANJULA, CBC, ADIFF, GFR, BMP #### [address] [address] Chloride [Moles/Vol] 102 mmol/L Normal 98-107 [facility] ([place]) Comment on above: Performed By: #### A MANJULA, CBC, ADIFF, GFR, BMP #### [address] [address] CO2 [Moles/Vol] 31 mmol/L Normal 23-31 [facility] ([place]) Comment on above: Performed By: #### A MANJULA, CBC, ADIFF, GFR, BMP #### [address] [address] Creatinine [Mass/Vol] 0.85 mg/dL Normal 0.55-1.02 [facility] ([place]) Comment on above: Performed By: #### A MANJULA, CBC, ADIFF, GFR, BMP #### [address] [address] Electrolyte Balance 8.0 mEq/L Normal 4.0-15.0 [facility] ([place]) Comment on above: Performed By: #### A MANJULA, CBC, ADIFF, GFR, BMP #### [address] [address] Glucose [Mass/Vol] 113 mg/dL High 83-110 [facility] ([place]) Comment on above: Performed By: #### A MANJULA, CBC, ADIFF, GFR, BMP #### [address] [address] Potassium [Moles/Vol] 3.8 mmol/L Normal 3.5-5.1 [facility] ([place] Comment on above: Performed By: #### A MANJULA, CBC, ADIFF, GFR, BMP #### [address] [address] Sodium [Moles/Vol] 141 mmol/L Normal 136-145 [facility] ([place]) Comment on above: Performed By: #### A MANJULA, CBC, ADIFF, GFR, BMP #### [address] [address] Urea nitrogen [Mass/Vol] 12 mg/dL Normal 7-18 [facility] ([place]) Comment on above: Performed By: #### A MANJULA, CBC, ADIFF, GFR, BMP #### [address] [address] CBCon 12-03-2023 Erythrocyte distribution width (RBC) [Ratio] 13.1 % Normal 11.5-14.5 [facility] ([place]) Comment on above: Performed By: #### A MANJULA, CBC, ADIFF, GFR, BMP #### [address] [address] Hematocrit (Bld) [Volume fraction] 31.1 % Low 37.0-47.0 [facility] ([place]) Comment on above: Performed By: #### A MANJULA, CBC, ADIFF, GFR, BMP #### [address] [address] Hgb 10.7 G/dL Low 12.0-16.0 [facility] ([place]) Comment on above: Performed By: #### A MANJULA, CBC, ADIFF, GFR, BMP #### [address] [address] MCH (RBC) [Entitic mass] 32.5 pg High 27.0-31.2 [facility] ([place]) Comment on above: Performed By: #### A MANJULA, CBC, ADIFF, GFR, BMP #### [address] [address] MCHC 34.5 G/dL Normal 33.0-37.0 [facility] ([place] Comment on above: Performed By: #### A MANJULA, CBC, ADIFF, GFR, BMP #### [address] [address] MCV (RBC) [Entitic vol] 94.2 fL High 80.0-94.0 [facility] ([place]) Comment on above: Performed By: #### A MANJULA, CBC, ADIFF, GFR, BMP #### [address] [address] Platelet 283 10 3/mcL Normal 130-400 [facility] ([place]) Comment on above: Performed By: #### A MANJULA, CBC, ADIFF, GFR, BMP #### [address] [address] Platelet mean volume (Bld) [Entitic vol] 7.2 fL Low 7.4-10.4 [facility] ([place] Comment on above: Performed By: #### A MANJULA, CBC, ADIFF, GFR, BMP #### [address] [address] RBC 3.30 10 6/mcL Low 4.20-5.40 [facility] ([place] Comment on above: Performed By: #### A MANJULA, CBC, ADIFF, GFR, BMP #### [address] [address] WBC 4.8 10 3/mcL Normal 4.6-10.8 [facility] ([place] Comment on above: Performed By: #### A MANJULA, CBC, ADIFF, GFR, BMP #### [address] [address] LABORATORYOrdered By: SYSTEM SYSTEM on 12-03-2023 Basophil, [...] Detected AH Auto Viro/Sero SS B. parapertussis BE1982 DNA FAUSTO+non-probe Ql (Nph) Not Detected *NA* [...] This assay has been validated in the [facility] for use with nasopharyngeal specimens in [facility]. If a non-validated specimen or test collection [...] 12-03-2023 Adenovirus Not detected Normal Not Detected [facility] ([place] Comment on above: Performed By: #### A MANJULA, CBC, ADIFF, GFR, BMP #### [address] [address] Bordetella Parapertussis Not detected Normal Not Detected [facility] ([place] Comment on above: Performed By: #### A MANJULA, CBC, ADIFF, GFR, BMP #### [address] [address] Bordetella Pertussis Not detected Normal Not Detected [facility] ([place] Comment on above: Performed By: #### A MANJULA, CBC, ADIFF, GFR, BMP #### [address] [address] Chlamydophila pneumoniae Not detected Normal Not Detected [facility] ([place] Comment on above: Performed By: #### A MANJULA, CBC, ADIFF, GFR, BMP #### [place] [address] Coronavirus 229E (Not COVID-19) Not detected Normal Not Detected [facility] ([place]) Comment on above: Performed By: #### A MANJULA, CBC, ADIFF, GFR, BMP #### [place] [address] Coronavirus HKU1 (Not COVID-19) Not detected Normal Not Detected [facility] ([place]) Comment on above: Performed By: #### A MANJULA, CBC, ADIFF, GFR, BMP #### [place] [address] Coronavirus NL63 (Not COVID-19) Not detected Normal Not Detected [facility] ([place]) Comment on above: Performed By: #### A MANJULA, CBC, ADIFF, GFR, BMP #### [place] [address] Coronavirus OC43 (Not COVID-19) Not detected Normal Not Detected [facility] ([place]) Comment on above: Performed By: #### A MANJULA, CBC, ADIFF, GFR, BMP #### [place] [address] Human Metapneumovirus Not detected Normal Not Detected [facility] ([place]) Comment on above: Performed By: #### A MANJULA, CBC, ADIFF, GFR, BMP #### [place] [address] Influenza A Not detected Normal Not Detected [facility] ([place]) Comment on above: Performed By: #### A MANJULA, CBC, ADIFF, GFR, BMP #### [place] [address] Influenza B Not detected Normal Not Detected [facility] ([place]) Comment on above: Performed By: #### A MANJULA, CBC, ADIFF, GFR, BMP #### [place] [address] Mycoplasma pneumoniae Not detected Normal Not Detected [facility] ([place]) Comment on above: Performed By: #### A MANJULA, CBC, ADIFF, GFR, BMP #### [place] [address] Parainfluenza 1 Not detected Normal Not Detected [facility] ([place] Comment on above: Performed By: #### A MANJULA, CBC, ADIFF, GFR, BMP #### [place] [address] Parainfluenza 2 Not detected Normal Not Detected [facility] ([place] Comment on above: Performed By: #### A MANJULA, CBC, ADIFF, GFR, BMP #### [place] [address] Parainfluenza 3 Not detected Normal Not Detected [facility] ([place] Comment on above: Performed By: #### A MANJULA, CBC, ADIFF, GFR, BMP #### [place] [address] Parainfluenza 4 Not detected Normal Not Detected [facility] ([place] Comment on above: Performed By: #### A MANJULA, CBC, ADIFF, GFR, BMP #### [place] [address] Respiratory Syncytial Virus Not detected Normal Not Detected [facility] ([place] Comment on above: Performed By: #### A MANJULA, CBC, ADIFF, GFR, BMP #### [place] [address] Rhinovirus/Enterovirus Not detected Normal Not Detected [facility] ([place] Comment on above: Performed By: #### A MANJULA, CBC, ADIFF, GFR, BMP #### [place] [address] SARS-CoV-2 (COVID-19) RNA FAUSTO+probe Ql (Unsp spec) Not detected Normal Not Detected [facility] ([place] Comment on above: Result Comment: This test is being used under the FDA EUA procedure. This assay has been validated in the [facility] for use with nasopharyngeal specimens in [facility]. If a non-validated specimen or test collection [...] public health authorities. Performed By: #### A MANJLUA, CBC, ADIFF, GFR, BMP #### [address] [address] UAon 12-03-2023 Color (U) Yellow Normal [facility] ([place]) Comment on above: Performed By: #### U A #### [address] [address] Glucose (U) [Mass/Vol] Negative Normal Negative [facility] ([place]) Comment on above: Performed By: #### U A #### [address] [address] Ketones Ql (U) Negative Normal Negative [facility] ([place]) Comment on above: Performed By: #### U A #### [address] [address] UA Appear Clear Normal Clear [facility] ([place] Comment on above: Performed By: #### U A #### [place] [id number] UA Blood Negative Normal Negative [facility] ([place]) Comment on above: Performed By: #### U A #### [place] [address] UA Leuk Est Negative Normal Negative [facility] ([place]) Comment on above: Performed By: #### U A #### [place] [address] UA Nitrite Negative Normal Negative [facility] ([place]) Comment on above: Performed By: #### U A #### [place] [address] UA pH 7.0 Normal 5.0 - 8.0 [facility] ([place]) Comment on above: Performed By: #### U A #### [place] [address] UA Protein Negative Normal Negative [facility] ([place]) Comment on above: Performed By: #### U A #### [place] [address] UA Spec Grav 1.010 Abnormal 1.015-1.02 5 [facility] ([place]) Comment on above: Performed By: #### U A #### [place] [address] UA Specimen Type Clean Catch Normal [facility] ([place]) Comment on above: Performed By: #### U A #### [place] [address] UA Urobilinogen 0.2 E.U./dL Normal 0.2-1.0 [facility] ([place]) Comment on above: Performed By: #### U A #### [place] [address] Urobilinogen (U) [Mass/Vol] Negative Normal Negative [facility] ([place]) Comment on above: Performed By: #### U A #### [place] [address] .Auto Diffon 04-25-2024 Basophil, Absolute 0.0 10 3/mcL Normal 0.0-0.2 [facility] ([place]) Comment on above: Performed By: #### A MANJULA, CBC, ADIFF, GFR, BMP #### [address] [address] Basophils/100 WBC (Bld) 0.9 % Normal 0.0-2.5 [facility] ([place]) Comment on above: Performed By: #### A MANJULA, CBC, ADIFF, GFR, BMP #### [address] [address] Eosinophil, Absolute 0.1 10 3/mcL Normal 0.0-0.4 [facility] ([place]) Comment on above: Performed By: #### A MANJULA, CBC, ADIFF, GFR, BMP #### [address] [address] Eosinophils/100 WBC (Bld) 2.4 % Normal 0.0-7.0 [facility] ([place]) Comment on above: Performed By: #### A MANJULA, CBC, ADIFF, GFR, BMP #### [address] [address] Lymphocyte, Absolute 0.9 10 3/mcL Normal 0.8-3.9 [facility] ([place]) Comment on above: Performed By: #### A MANJULA, CBC, ADIFF, GFR, BMP #### [address] [address] Lymphocytes/100 WBC (Bld) 19.6 % Normal 10.0-50.0 [facility] ([place] Comment on above: Performed By: #### A MANJULA, CBC, ADIFF, GFR, BMP #### [address] [address] Monocyte, Absolute 0.3 10 3/mcL Normal 0.2-1.0 [facility] ([place]) Comment on above: Performed By: #### A MANJULA, CBC, ADIFF, GFR, BMP #### [address] [address] Monocytes/100 WBC (Bld) 7.0 % Normal 1.7-13.0 [facility] ([place] Comment on above: Performed By: #### A MANJULA, CBC, ADIFF, GFR, BMP #### [address] [address] Neutrophils/100 WBC (Bld) 70.1 % Normal 37.0-80.0 [facility] ([place] Comment on above: Performed By: #### A MANJULA, CBC, ADIFF, GFR, BMP #### [address] [address] .GFRon 12-02-2023 GFR 94 ml/min/1.73sqm Normal [facility] ([place]) Comment on above: Result Comment: GFR Population [...] A MANJULA, CBC, ADIFF, GFR, BMP #### [address] [address] GFR Non- 77 ml/min/1.73sqm Normal [facility] ([place]) Comment on above: Result Comment: GFR Population [...] A MANJULA, CBC, ADIFF, GFR, BMP #### [address] [address] .NEUABSon 12-02-2023 Neutrophil, Absolute 3.2 10 3/mcL Normal 2.9-6.2 [facility] ([place]) Comment on above: Performed By: #### A MANJULA, CBC, ADIFF, GFR, BMP #### [address] [address] BMPon 12-02-2023 BUN/Creatinine Ratio 17 ratio Normal 7-27 [facility] ([place]) Comment on above: Performed By: #### A MANJULA, CBC, ADIFF, GFR, BMP #### [address] [address] Calcium [Mass/Vol] 8.7 mg/dL Normal 8.4-10.2 [facility] ([place]) Comment on above: Performed By: #### A MANJULA, CBC, ADIFF, GFR, BMP #### [address] [address] Chloride [Moles/Vol] 102 mmol/L Normal 98-107 [facility] ([place]) Comment on above: Performed By: #### A MANJULA, CBC, ADIFF, GFR, BMP #### [address] [address] CO2 [Moles/Vol] 29 mmol/L Normal 23-31 [facility] ([place] Comment on above: Performed By: #### A MANJULA, CBC, ADIFF, GFR, BMP #### [address] [address] Creatinine [Mass/Vol] 0.72 mg/dL Normal 0.55-1.02 [facility] [place] Comment on above: Performed By: #### A MANJULA, CBC, ADIFF, GFR, BMP #### [address] [address] Electrolyte Balance 10.0 mEq/L Normal 4.0-15.0 [facility] ([place]) Comment on above: Performed By: #### A MANJULA, CBC, ADIFF, GFR, BMP #### [address] [address] Glucose [Mass/Vol] 103 mg/dL Normal 83-110 [facility] ([place]) Comment on above: Performed By: #### A MANJULA, CBC, ADIFF, GFR, BMP #### [address] [address] Potassium [Moles/Vol] 4.4 mmol/L Normal 3.5-5.1 [facility] [place] Comment on above: Performed By: #### A MANJULA, CBC, ADIFF, GFR, BMP #### [address] [address] Sodium [Moles/Vol] 141 mmol/L Normal 136-145 [facility] ([place]) Comment on above: Performed By: #### A MANJULA, CBC, ADIFF, GFR, BMP #### [address] [address] Urea nitrogen [Mass/Vol] 12 mg/dL Normal 7-18 [facility] ([place]) Comment on above: Performed By: #### A MANJULA, CBC, ADIFF, GFR, BMP #### [address] [address] CBCon 12-02-2023 Erythrocyte distribution width (RBC) [Ratio] 13.3 % Normal 11.5-14.5 [facility]) Comment on above: Performed By: #### A MANJULA, CBC, ADIFF, GFR, BMP #### [address] [address] Hematocrit (Bld) [Volume fraction] 33.2 % Low 37.0-47.0 [facility] ([place] Comment on above: Performed By: #### A MANJULA, CBC, ADIFF, GFR, BMP #### [address] [address] Hgb 11.0 G/dL Low 12.0-16.0 [facility] ([place]) Comment on above: Performed By: #### A MANJULA, CBC, ADIFF, GFR, BMP #### [address] [address] MCH (RBC) [Entitic mass] 31.6 pg High 27.0-31.2 [facility] ([place]) Comment on above: Performed By: #### A MANJULA, CBC, ADIFF, GFR, BMP #### [address] [address] MCHC 33.2 G/dL Normal 33.0-37.0 [facility] ([place]) Comment on above: Performed By: #### A MANJULA, CBC, ADIFF, GFR, BMP #### [address] [address] MCV (RBC) [Entitic vol] 95.2 fL High 80.0-94.0 [facility] ([place]) Comment on above: Performed By: #### A MANJULA, CBC, ADIFF, GFR, BMP #### [address] [address] Platelet 319 10 3/mcL Normal 130-400 [facility] ([place]) Comment on above: Performed By: #### A MANJULA, CBC, ADIFF, GFR, BMP #### [address] [address] Platelet mean volume (Bld) [Entitic vol] 7.5 fL Normal 7.4-10.4 [facility] ([place]) Comment on above: Performed By: #### A MANJULA, CBC, ADIFF, GFR, BMP #### [address] [address] RBC 3.49 10 6/mcL Low 4.20-5.40 [facility] ([place]) Comment on above: Performed By: #### A MANJULA, CBC, ADIFF, GFR, BMP #### [address] [address] WBC 4.5 10 3/mcL Low 4.6-10.8 [facility] ([place] Comment on above: Performed By: #### A MANJULA, CBC, ADIFF, GFR, BMP #### [place] [address] CVFLURVon 12-02-2023 FLU A PCR Negative Normal Negative [facility] ([place] Comment on above: Performed By: #### A MANJULA, CBC, ADIFF, GFR, BMP #### [place] [address] FLU B PCR Negative Normal Negative [facility] ([place] Comment on above: Performed By: #### A MANJULA, CBC, ADIFF, GFR, BMP #### [place] [address] RSV PCR Negative Normal Negative [facility] ([place] Comment on above: Performed By: #### A MANJULA, CBC, ADIFF, GFR, BMP #### [place] [address] SARS-CoV-2 (COVID-19) RNA FAUSTO+probe Ql (Unsp spec) Negative Normal Negative [facility] ([place]) Comment on above: Result Comment: Resu lts [...] A MANJULA, CBC, ADIFF, GFR, BMP #### [place] [address] LABORATORYOrdered By: Mina Pedersen on 12-02-2023 FLUAV RNA FAUSTO+probe Ql (Resp) Negative (12/02/23 8:44 AM) Normal Negative AO Auto Urine SS FLUBV RNA FAUSTO+probe Ql (Resp) Negative (12/02/23 8:44 AM) Normal Negative AO Auto Urine SS RSV RNA AFUSTO+probe Ql (Resp) Negative (12/02/23 8:44 AM) Normal [...] on 11-26-2023 Chloride [Moles/Vol] 100 mmol/L 98-107 [facility] Glucose [Mass/Vol] 117 mg/dL 74-[address] [facility] Comment on above: Fasting Glucose resu lt from 100 to 125 mg/dL suggests IMPAIRED HOMEOSTASIS per A.D.A. criteria. Hemoglobin (Bld) [Mass/Vol] 11.2 g/dL 12.0-15.0 [facility] Potassium [Moles/Vol] 3.3 mmol/L 3.5-5.1 [facility] Sodium [Moles/Vol] 135 mmol/L 136-[address] [facility] WBC (Bld) [#/Vol] 6.1 10*3/uL 4.4-11.[address] [facility] Determination of erythrocyte mean corpuscular volume (MCV)Ordered By: Kelby Aguilar on 11-26-2023 MCV (RBC) [Entitic vol] 98.1 fL 81-99 [facility] Erythrocyte distribution wid th ratioOrdered By: Kelby Aguilar on 11-26-2023 Erythrocyte distribution width (RBC) [Ratio] 13.2 % 11.6-14.6 [facility] Erythrocyte distribution wid th standard deviationOrdered By: Kelby Aguilar on 11-26-2023 Erythrocyte distribution width (RBC) [Entitic vol] 47.1 fL 35.1-43.9 [facility] Hematocrit Auto (Bld) [Volum e fraction]Ordered By: Kelby Aguilar on 11-26-2023 Hematocrit (Bld) [Volume fraction] 35.4 % 37-47 [facility] Laboratory - Chemistry and C hemistry - challengeOrdered By: Kelby Aguilar on 11-26-2023 CO2 [Moles/Vol] 27.0 mmol/L 21.0-32.0 [facility] Urea nitrogen/Creatinine [Mass ratio] 17.1 mg/mg 10-20 [facility] Laboratory - Hematology and Cell countsOrdered By: Kelby Aguilar on 11-26-2023 MCH (RBC) [Entitic mass] 31.0 pg 27.0-32.0 [facility] MCHC (RBC) [Mass/Vol] 31.6 g/dL 32-36 [facility] Platelet mean volume (Bld) [Entitic vol] 10.3 fL 6.2-12.0 [facility] Platelets (Bld) [#/Vol] 215 10*3/uL 150-450 [facility] No Panel InformationOrdered By: Kelby Aguilar on 11-26-2023 Estimated Creatinine Clearance Calc 48.91 ml/min [facility] Estimated GFR (MDRD) Amer 102 mL/min >60 [facility] Comment on above: GFR Calc Estimated GFR (MDRD) Non-Af Amer 84 mL/min >60 [facility] Comment on above: Non- GFR Calc RBC Auto (Bld) [#/Vol]Ordere d By: Kelby Aguilar on 11-26-2023 RBC (Bld) [#/Vol] 3.61 10*6/uL 4.2-5.4 [facility] Serum or plasma calcium nina urement (mass/volume)Ordered By: Kelby Aguilar on 11-26-2023 Calcium [Mass/Vol] 8.6 mg/dL 8.5-10.[address] [facility] Serum or plasma creatinine m easurement (mass/volume)Ordered By: Kelby Aguilar on 11-26-2023 Creatinine [Mass/Vol] 0.70 mg/dL 0.55-1.02 [facility] Comment on above: The validity of the calculated GFR & GFRAA in patients over 70 years has not been determined. Clinical correlation is essential. Serum or plasma urea nitroge n measurement (mass/volume)Ordered By: Kelby Aguilar on 11-26-2023 Urea nitrogen [Mass/Vol] 12 mg/dL 7-18 [facility] Thin prep Papanicolaou smear with manual screeningOrdered By: Kelby Aguilar on 11-26-2023 Thin prep Papanicolaou smear with manual screening 8 5-15 [facility] Laboratory - Chemistry and C hemistry - challengeOrdered By: Kelby Aguilar on 11-25-2023 CK [Catalytic activity/Vol] 1138 U/L 26-192 [facility] Absolute lymphocyte countOrd ered By: Smith Ho on 11-23-2023 Lymphocytes Auto (Unsp spec) [#/Vol] 1.14 10*3/uL 0.83-4.51 [facility] Automated lymphocyte count a s percentage of total leukocytesOrdered By: Smith Ho on 11-23-2023 Lymphocytes/100 WBC Auto (Unsp spec) 12.9 % 19-41 [facility] Basophil percentageOrdered B y: Smith Ho on 11-23-2023 Basophil percentage 10-25 SEEN /hpf 0-5 [facility] Basophils/100 WBC (Bld) 0.5 % 0-1 [facility] Chloride [Moles/Vol] 107 mmol/L 98-107 [facility] Eosinophils/100 WBC (Bld) 0.1 % 0-5 [facility] Glucose [Mass/Vol] 122 mg/dL 74-[address] [facility] Comment on above: Fasting Glucose resu lt from 100 to 125 mg/dL suggests IMPAIRED HOMEOSTASIS per A.D.A. criteria. Hemoglobin (Bld) [Mass/Vol] 12.3 g/dL 12.0-15.0 [facility] Monocytes/100 WBC (Bld) 9.0 % 0-10 [facility] Neutrophils (Bld) [#/Vol] 6.8 10*3/uL 2.0-7.7 [facility] Neutrophils/100 WBC (Bld) 77.0 % 47-70 [facility] Potassium [Moles/Vol] 3.8 mmol/L 3.5-5.1 [facility] Sodium [Moles/Vol] 141 mmol/L 136-[address] [facility] WBC (Bld) [#/Vol] 8.8 10*3/uL 4.4-11.[address] [facility] Bilirubin Test strip Ql (U)O rdered By: Smith Ho on 11-23-2023 Bilirubin Ql (U) Negative Negative [facility] Culture, urineOrdered By: Deandre Ho on 11-23-2023 Bacteria identified Cx Nom (U) Presumptive E. coli [facility] Determination of erythrocyte mean corpuscular volume (MCV)Ordered By: Smith Ho on 11-23-2023 MCV (RBC) [Entitic vol] 96.9 fL 81-99 [facility] Erythrocyte distribution wid th ratioOrdered By: Smith Ho on 11-23-2023 Erythrocyte distribution width (RBC) [Ratio] 13.3 % 11.6-14.6 [facility] Erythrocyte distribution wid th standard deviationOrdered By: Smith Ho on 11-23-2023 Erythrocyte distribution width (RBC) [Entitic vol] 47.7 fL 35.1-43.9 [facility] Hematocrit Auto (Bld) [Volum e fraction]Ordered By: Smith Ho on 11-23-2023 Hematocrit (Bld) [Volume fraction] 37.9 % 37-47 [facility] Immature granulocytes/100 WB C Auto (Bld)Ordered By: Smith Ho on 11-23-2023 Immature granulocytes/100 WBC (Bld) 0.500 % 0.0-0.9 [facility] Comment on above: IG% - Immature Granu locytes (promyelocytes, myelocytes and metamyelocytes) > 1% indicates that a LEFT SHIFT is Present. Ketones Test strip Ql (U)Ord ered By: Smith Ho on 11-23-2023 Ketones Ql (U) 5 mg/dl Negative [facility] Laboratory - Chemistry and C hemistry - challengeOrdered By: Smith oH on 11-23-2023 CK [Catalytic activity/Vol] 2446 U/L 26-192 [facility] CO2 [Moles/Vol] 27.0 mmol/L 21.0-32.0 [facility] Urea nitrogen/Creatinine [Mass ratio] 24.1 mg/mg 10-20 [facility] Laboratory - Hematology and Cell countsOrdered By: Smith Ho on 11-23-2023 MCH (RBC) [Entitic mass] 31.5 pg 27.0-32.0 [facility] MCHC (RBC) [Mass/Vol] 32.5 g/dL 32-36 [facility] Nucleated RBC/100 WBC (Bld) [Ratio] 0 % 0-5 [facility] Platelet mean volume (Bld) [Entitic vol] 9.9 fL 6.2-12.0 [facility] Platelets (Bld) [#/Vol] 192 10*3/uL 150-450 [facility] Mucus LM Ql (Urine sed)Order ed By: Smith Ho on 11-23-2023 Mucus Ql (Urine sed) 1+ /hpf [facility] Nitrite Test strip Ql (U)Ord ered By: Smith Ho on 11-23-2023 Nitrite Ql (U) Positive Negative [facility] No Panel InformationOrdered By: Smith Ho on 11-23-2023 Urine RBC 0-5 SEEN /hpf 0-5 [facility] Estimated Creatinine Clearance Calc 50.43 ml/min [facility] Estimated GFR (MDRD) Amer 95 mL/min >60 [facility] [facility] Comment on above: GFR Calc Estimated GFR (MDRD) Non-Af Amer 79 mL/min >60 [facility] Comment on above: Non- GFR Calc Protein Test strip Ql (U)Ord ered By: Smith Ho on 11-23-2023 Protein Ql (U) 30 mg/dl Negative [facility] RBC Auto (Bld) [#/Vol]Ordere d By: Smith Ho on 11-23-2023 RBC (Bld) [#/Vol] 3.91 10*6/uL 4.2-5.4 [facility] Serum or plasma calcium nina urement (mass/volume)Ordered By: Smith Ho on 11-23-2023 Calcium [Mass/Vol] 9.4 mg/dL 8.5-10.[address] [facility] Serum or plasma creatinine m easurement (mass/volume)Ordered By: Smith Ho on 11-23-2023 Creatinine [Mass/Vol] 0.75 mg/dL 0.55-1.02 [facility] Comment on above: The validity of the calculated GFR & GFRAA in patients over 70 years has not been determined. Clinical correlation is essential. Serum or plasma thyroid stim ulating hormone (TSH) measurement (units/volume)Ordered By: Kelby Aguilar on 11-23-2023 TSH Qn 1.59 uIU/mL 0.358-3.74 [facility] Serum or plasma urea nitroge n measurement (mass/volume)Ordered By: Smith Ho on 11-23-2023 Urea nitrogen [Mass/Vol] 18 mg/dL 7-18 [facility] Squamous epithelial cells de tection in urine sediment by light microscopyOrdered By: Smith Ho on 11-23-2023 Epithelial cells.squamous LM Ql (Urine sed) 0-5 SEEN /hpf 5-10 [facility] Thin prep Papanicolaou smear with manual screeningOrdered By: Smith Ho on 11-23-2023 Thin prep Papanicolaou smear with manual screening 7 5-15 [facility] Urine blood detectionOrdered By: Smith Ho on 11-23-2023 RBC Ql (U) 250 /ul Negative [facility] Urine clarityOrdered By: Migue Ho on 11-23-2023 Clarity (U) Cloudy Clear [facility] Urine color determinationOrd ered By: Smith Ho on 11-23-2023 Color (U) Yellow Yellow [facility] Urine glucose detectionOrder ed By: Smith Ho on 11-23-2023 Glucose Ql (U) Normal mg/dl Normal [facility] Urine leukocyte esterase det ection by dipstickOrdered By: Smith Ho on 11-23-2023 Leukocyte esterase Test strip Ql (U) 500 /ul Negative [facility] Urine pHOrdered By: Smith bryson on 11-23-2023 pH (U) 6.0 [pH] 5.0 - 8.0 [facility] Urine sediment bacteria coun t by microscopy (number/high power field)Ordered By: Smith Ho on 11-23-2023 Bacteria LM.HPF (Urine sed) [#/Area] 4 /[HPF] None Seen [facility] Urine specific gravity measu rementOrdered By: Smith Ho on 11-23-2023 Specific gravity (U) [Rel density] 1.010 1.002-1.03 0 [facility] Urine urobilinogen measureme ntOrdered By: Smith Ho on 11-23-2023 Urobilinogen Ql (U) Normal mg/dl Normal [facility] CNPNon 08-22-2023 CNPN Normal [facility] CBC W Auto Differential pane l (Bld)on 08-18-2023 Basophils (Bld) [#/Vol] 0.08 10*3/uL Normal <0.11 [facility] Comment on above: Order Comment: Speci men Type: BLOOD SPECIMENOrdering Facility: [facility] Address: [address] [place] [address] Performed By: #### 5 7021-8 ####[facility] [id number] [place] [address] [place] Basophils/100 WBC (Bld) 1.3 % Normal [facility] Comment on above: Order Comment: Speci men Type: BLOOD SPECIMENOrdering Facility: [facility] Address: [address] [place] [address] Performed By: #### 5 7021-8 ####[facility] [id number] [place] [address] [place] Differential cell count method Nom (Bld) Auto Normal [facility] Comment on above: Order Comment: Speci men Type: BLOOD SPECIMENOrdering Facility: [facility] Address: [address] [place] [address] Performed By: #### 5 7021-8 ####[facility] [id number] [place] [address] [place] Eosinophils (Bld) [#/Vol] 0.21 10*3/uL Normal <0.46 [facility] Comment on above: Order Comment: Speci men Type: BLOOD SPECIMENOrdering Facility: [facility] Address: [address] [place] [address] Performed By: #### 5 7021-8 ####[facility] [id number] [place] [address] [place] Eosinophils/100 WBC (Bld) 3.4 % Normal [facility] Comment on above: Order Comment: Speci men Type: BLOOD SPECIMENOrdering Facility: [facility] Address: [address] [place] [address] Performed By: #### 5 7021-8 ####[facility] [id number] [place] [address] [place] Erythrocyte distribution width (RBC) [Ratio] 15.9 % High 11.5-15.0 [facility] Comment on above: Order Comment: Speci men Type: BLOOD SPECIMENOrdering Facility: [facility] Address: [address] [place] [address] Performed By: #### 5 7021-8 ####[facility] [id number] [place] [address] [place] Hematocrit (Bld) [Volume fraction] 40.1 % Normal 36.0-46.0 [facility] Comment on above: Order Comment: Speci men Type: BLOOD SPECIMENOrdering Facility: [facility] Address: [address] [place] [address] Performed By: #### 5 7021-8 ####[facility] MGROMAIN [id number] [place] [address] [place] Hemoglobin (Bld) [Mass/Vol] 12.7 g/dL Normal 11.5-15.5 [facility] Comment on above: Order Comment: Speci men Type: BLOOD SPECIMENOrdering Facility: [facility] Address: [address] [place] [address] Performed By: #### 5 7021-8 ####[facility] [id number] [place] [address] [place] Immature granulocytes (Bld) [#/Vol] 10*3/uL Normal <0.10 [facility] Comment on above: Order Comment: Speci men Type: BLOOD SPECIMENOrdering Facility: [facility] Address: [address] [place] [address] Performed By: #### 5 7021-8 ####[facility] [id number] [place] [address] [place] Immature granulocytes/100 WBC (Bld) 0.2 % Normal [facility] Comment on above: Order Comment: Speci men Type: BLOOD SPECIMENOrdering Facility: [facility] Address: [address] [place] [address] Performed By: #### 5 7021-8 ####[facility] [id number] [place] [address] [place] Lymphocytes (Bld) [#/Vol] 2.16 10*3/uL Normal 1.00-4.00 [facility] Comment on above: Order Comment: Speci men Type: BLOOD SPECIMENOrdering Facility: [facility] Address: [address] [place] [address] Performed By: #### 5 7021-8 ####[facility] [id number] [place] [address] [place] Lymphocytes/100 WBC (Bld) 35.0 % Normal [facility] Comment on above: Order Comment: Speci men Type: BLOOD SPECIMENOrdering Facility: [facility] Address: [address] [place] [address] Performed By: #### 5 7021-8 ####[facility] HOSPITALANYILIA [id number] [place] [address] [place] MCH (RBC) [Entitic mass] 31.5 pg Normal 26.0-34.0 [facility] Comment on above: Order Comment: Speci men Type: BLOOD SPECIMENOrdering Facility: [facility] Address: [address] [place] [address] Performed By: #### 5 7021-8 ####[facility]ITALANYIL[facility] [id number] [place] [address] [place] MCHC (RBC) [Mass/Vol] 31.7 g/dL Normal 30.5-36.0 [facility] Comment on above: Order Comment: Speci men Type: BLOOD SPECIMENOrdering Facility: [facility] Address: [address] [place] [address] Performed By: #### 5 7021-8 ####[facility]ITALANY[facility] [id number] [place] [address] [place] MCV (RBC) [Entitic vol] 99.5 fL Normal 80.0-100.0 [facility] Comment on above: Order Comment: Speci men Type: BLOOD SPECIMENOrdering Facility: [facility] Address: [address] [place] [address] Performed By: #### 5 7021-8 ####[facility] H[facility]ITALNCLIA [id number] [place] [address] [place] Monocytes (Bld) [#/Vol] 0.47 10*3/uL Normal <0.87 [facility] Comment on above: Order Comment: Speci men Type: BLOOD SPECIMENOrdering Facility: [facility] Address: [address] [place] [address] Performed By: #### 5 7021-8 ####[facility]ITALL[facility] [id number] [place] [address] [place] Monocytes/100 WBC (Bld) 7.6 % Normal [facility] Comment on above: Order Comment: Speci men Type: BLOOD SPECIMENOrdering Facility: [facility] Address: [address] [place] [address] Performed By: #### 5 7021-8 ####[facility] [id number] [place] [address] [place] Neutrophils (Bld) [#/Vol] 3.24 10*3/uL Normal 1.45-7.50 [facility] Comment on above: Order Comment: Speci men Type: BLOOD SPECIMENOrdering Facility: [facility] Address: [address] [place] [address] Performed By: #### 5 7021-8 ####[facility] [id number] [place] [address] [place] Neutrophils/100 WBC (Bld) 52.5 % Normal [facility] Comment on above: Order Comment: Speci men Type: BLOOD SPECIMENOrdering Facility: [facility] Address: [address] [place] [address] Performed By: #### 5 7021-8 ####[facility] [id number] [place] [address] [place] Nucleated RBC (Bld) [#/Vol] 10*3/uL Normal <0.01 [facility] Comment on above: Order Comment: Speci men Type: BLOOD SPECIMENOrdering Facility: [facility] Address: [address] [place] [address] Performed By: #### 5 7021-8 ####[facility] MGGLEN ECHOLAILAA [id number] [place] [address] [place] Nucleated RBC/100 WBC (Bld) [Ratio] 0.0 /100 WBC Normal [facility] Comment on above: Order Comment: Speci men Type: BLOOD SPECIMENOrdering Facility: [facility] Address: [address] [place] [address] Performed By: #### 5 7021-8 ####[facility] HOSPITALNCDavid [id number] [place] [address] [place] Platelet mean volume (Bld) [Entitic vol] 10.0 fL Normal 9.0-12.7 [facility] Comment on above: Order Comment: Speci men Type: BLOOD SPECIMENOrdering Facility: [facility] Address: [address] [place] [address] Performed By: #### 5 7021-8 ####[facility] [id number] [place] [address] [place] Platelets (Bld) [#/Vol] 272 10*3/uL Normal 150-400 [facility] Comment on above: Order Comment: Speci men Type: BLOOD SPECIMENOrdering Facility: [facility] Address: [address] [place] [address] Performed By: #### 5 7021-8 ####[facility] HOS[facility]ITALL[facility] [id number] [place] [address] [place] RBC (Bld) [#/Vol] 4.03 10*6/uL Normal 3.90-5.20 [facility] Comment on above: Order Comment: Speci men Type: BLOOD SPECIMENOrdering Facility: [facility] Address: [address] [place] [address] Performed By: #### 5 7021-8 ####[facility] HOSPITALNCA [id number] [place] [address] [place] WBC (Bld) [#/Vol] 6.17 10*3/uL Normal 3.70-11.00 [facility] Comment on above: Order Comment: Speci men Type: BLOOD SPECIMENOrdering Facility: [facility] Address: [address] [place] [address] Performed By: #### 5 7021-8 ####[facility] [id number] [place] [address] [place] CNOVon 08-18-2023 CNOV Normal [facility] Cancer Ag125 SerPl-aCncon Cancer Ag 125 Qn 6 [arb'U]/mL Normal <[address] [facility] Comment on above: Order Comment: Speci men Type: BLOOD SPECIMENOrdering Facility: [facility] Address: [address] [place] [address] Result Comment: CA 1 25 test methodology [...] (CA 125 II) [package insert V 1.0 [place]an]. [employer], [place], [place] (May 2015) Performed By: #### 3 016-3, LIPNF, 09121-0 ####[facility] LABCLIA [id number] [facility] [id number] [place] [address] [place]#### 71841-7 ####[facility] HOSPITALNCLIA [id number] [place] [address] [place] Comprehensive metabolic 2000 panelon 08-18-2023 Albumin [Mass/Vol] 4.9 g/dL Normal 3.9-4.[address] [facility] Comment on above: Order Comment: Speci men Type: BLOOD SPECIMENOrdering Facility: [facility] Address: [address] [place] [address] Performed By: #### 3 016-3, LIPNF, 32601-4 ####[facility] LABCLIA [id number] [place] [address] [place]#### 86882-7 ####[facility] PAULINE MILLTOWNCLIA [id number] [place] [address] [place] ALP [Catalytic activity/Vol] 108 U/L Normal 34-123 [facility] Comment on above: Order Comment: Speci men Type: BLOOD SPECIMENOrdering Facility: [facility] Address: [address] [place] [address] Performed By: #### 3 016-3, LIPNF, 90780-1 ####[facility] LABCLIA [id number] [place] [address] [place]#### 53156-6 ####[facility] MILLWNCLIA [id number] [place] [address] [place] ALT [Catalytic activity/Vol] 17 U/L Normal 7-38 [facility] Comment on above: Order Comment: Speci men Type: BLOOD SPECIMENOrdering Facility: [facility] Address: [address] [place] [address] Performed By: #### 3 016-3, LIPNF, 57786-6 ####[facility] LABCLIA [id number] [place] [address] [place]#### 75403-6 ####[facility] PAULINE MILLTOWNCLIA [id number] [place] [address] [place] Anion gap [Moles/Vol] 12 mmol/L Normal 9-18 [facility] Comment on above: Order Comment: Speci men Type: BLOOD SPECIMENOrdering Facility: [facility] Address: [address] [place] [address] Performed By: #### 3 016-3, LIPNF, 45522-4 ####[facility] LABCLIA [id number] [place] [address] [place]#### 71168-7 ####[facility] MILLTOWNCLIA [id number] [place] [address] [place] AST [Catalytic activity/Vol] 25 U/L Normal 13-35 [facility] Comment on above: Order Comment: Speci men Type: BLOOD SPECIMENOrdering Facility: [facility] Address: [address] [place] [address] Performed By: #### 3 016-3, LIPNF, 34503-3 ####[facility] LABCLIA [id number] [place] [address] [place]#### 43887-5 ####[facility] MILLWNCLIA [id number] [place] [address] [place] Bilirubin [Mass/Vol] 0.4 mg/dL Normal 0.2-1.3 [facility] Comment on above: Order Comment: Speci men Type: BLOOD SPECIMENOrdering Facility: [facility] Address: [address] [place] [address] Performed By: #### 3 016-3, LIPNF, 47496-1 ####[facility] LABCLIA [id number] [place] [address] [place]#### 89820-1 ####[facility] MILLTOWNCLIA [id number] [place] [address] [place] Calcium [Mass/Vol] 9.8 mg/dL Normal 8.5-10.[address] [facility] Comment on above: Order Comment: Speci men Type: BLOOD SPECIMENOrdering Facility: [facility] Address: [address] [place] [address] Performed By: #### 3 016-3, LIPNF, 84362-1 ####[facility] LABCLIA [id number] [place] [address] [place]#### 13592-8 ####[facility] MILLTOWNCLIA [id number] [place] [address] [place] Chloride [Moles/Vol] 99 mmol/L Normal 97-105 [facility] Comment on above: Order Comment: Speci men Type: BLOOD SPECIMENOrdering Facility: [facility] Address: [address] [place] [address] Performed By: #### 3 016-3, LIPNF, 03330-3 ####[facility] LABCLIA [id number] [place] [address] [place]#### 08630-1 ####[facility] MILLWNCLIA [id number] [place] [address] [place] CO2 [Moles/Vol] 26 mmol/L Normal 22-30 [facility] Comment on above: Order Comment: Speci men Type: BLOOD SPECIMENOrdering Facility: [facility] Address: [address] [place] [address] Performed By: #### 3 016-3, LIPNF, 50073-0 ####[facility] LABCLIA [id number] [place] [address] [place]#### 53121-0 ####[facility] MILLTOWNCLIA [id number] [place] [address] [place] Creatinine [Mass/Vol] 0.72 mg/dL Normal 0.58-0.96 [facility] Comment on above: Order Comment: Speci men Type: BLOOD SPECIMENOrdering Facility: [facility] Address: [address] [place] [address] Performed By: #### 3 016-3, LIPNF, 27428-1 ####[facility] LABCLIA [id number] [place] [address] [place]#### 52747-5 ####[facility] [id number] [place] [address] [place] Creatinine and Glomerular filtration rate.predicted panel (S/P/Bld) 83 mL/min/1.73m??? Normal >=60 [facility] Comment on above: Order Comment: Zay men Type: BLOOD SPECIMENOrdering Facility: [facility] Address: [address] [place] [address] Result Comment: Marlyn mated Glomerular Filtration Rate [...] GFR. Performed By: #### 3 016-3, LIPNF, 37116-4 ####[facility] LABCLIA [id number] [place] [address] [place]#### 41203-0 ####[facility] [id number] [place] [address] [place] Glucose [Mass/Vol] 112 mg/dL High 74-[address] [facility] Comment on above: Order Comment: Zay men Type: BLOOD SPECIMENOrdering Facility: [facility] Address: [address] [place] [address] Result Comment: The [place] Diabetes Association (ADA) provides guidance for cutoff [...] Standards of Medical Care in Diabetes 2016, [place] [employer] Association. Diabetes Care. 2016.39(Suppl 1). Performed By: #### 3 016-3, LIPNF, 47829-1 ####[facility] LABCLIA [id number] [place] [address] [place]#### 38686-3 ####[facility] MILLTOWNCLIA [id number] [place] [address] [place] Potassium [Moles/Vol] 4.3 mmol/L Normal 3.7-5.1 [facility] Comment on above: Order Comment: Speci men Type: BLOOD SPECIMENOrdering Facility: [facility] Address: [address] [place] [address] Performed By: #### 3 016-3, LIPNF, 02145-6 ####[facility] LABCLIA [id number] [place] [address] [place]#### 69482-5 ####[facility] MILLTOWNCLIA [id number] [place] [address] [place] Protein [Mass/Vol] 8.7 g/dL High 6.3-8.[address] [facility] Comment on above: Order Comment: Speci men Type: BLOOD SPECIMENOrdering Facility: [facility] Address: [address] [place] [address] Performed By: #### 3 016-3, LIPNF, 15261-1 ####[facility] LABCLIA [id number] [place] [address] [place]#### 59027-4 ####[facility] HOSPITALLIA [id number] [place] [address] [place] Sodium [Moles/Vol] 137 mmol/L Normal 136-[address] [facility] Comment on above: Order Comment: Speci men Type: BLOOD SPECIMENOrdering Facility: [facility] Address: [address] [place] [address] Performed By: #### 3 016-3, LIPNF, 08706-4 ####[facility] LABCLIA [id number] [place] [address] [place]#### 30330-4 ####[facility] [id number] [place] [address] [place] Urea nitrogen [Mass/Vol] 18 mg/dL Normal 7-21 [facility] Comment on above: Order Comment: Speci men Type: BLOOD SPECIMENOrdering Facility: [facility] Address: [address] [place] [address] Performed By: #### 3 016-3, LIPNF, 56911-7 ####[facility] LABCLIA [id number] [place] [address] [place]#### 32558-6 ####[facility]ITAL[facility] [id number] [place] [address] [place] LIPID PANEL, NONFASTINGon Cholesterol [Mass/Vol] 201 mg/dL High <200 [facility] Comment on above: Order Comment: Speci men Type: BLOOD SPECIMENOrdering Facility: [facility] Address: [address] [place] [address] Result Comment: <200 mg/dL, Desirable 200-239 mg/dL, Borderline high>239 mg/dL, High Performed By: #### 3 016-3, LIPNF, 20679-1 ####[facility] LABCLIA [id number] [address] AVENUEDES[id number]#### 52769-9 ####[facility] MILLTOWNCLIA [id number] [place] [address] [place] HDL CHOLESTEROL, NF 81 mg/dL Normal >39 [facility] Comment on above: Order Comment: Speci men Type: BLOOD SPECIMENOrdering Facility: [facility] Address: [address] [place] [address] Result Comment: 40-5 9 mg/dL, Acceptable>59 mg/dL, High: Negative risk factor for coronary heart disease<40 mg/dL, Low: Positive risk factor for coronary heart disease Performed By: #### 3 016-3, LIPNF, 71062-4 ####[facility] LABCLIA [id number] [address] [place]#### 05403-1 ####[facility] H[facility]ITALNCLIA [id number] [place] [address] [place] LDL CHOLESTEROL, NF 96 mg/dL Normal <100 [facility] Comment on above: Order Comment: Speci men Type: BLOOD SPECIMENOrdering Facility: [facility] Address: [address] [place] [address] Result Comment: <100 mg/dL, Optimal 100-129 mg/dL, Near optimal/above optimal 130-159 mg/dL, Borderline high 160-189 mg/dL, High>189 mg/dL, Very highSecondary prevention optimal LDL Cholesterol levels are recommended to be < 70 mg/dL Performed By: #### 3 016-3, LIPNF, 09572-2 ####[facility] LABCLIA [id number] [place] [address] [place]#### 68940-9 ####[facility] MILLTOWNCLIA [id number] [place] [address] [place] LDL/HDL RATIO, NF 1.19 mg/dL Normal <2.54 [facility] Comment on above: Order Comment: Zay sandoval Type: BLOOD SPECIMENOrdering Facility: [facility] Address: [address] [place] [address] Result Comment: Kapil raymond:1. National Cholesterol Education Program ATP III Guideline At-A-Glance Quick Desk Reference: National Heart, Lung, and Blood Tracy. National Institutes of Health. 2001: NIH Publication No. 01-3305.2. An International Atherosclerosis Society position paper: global recommendations for the management of dyslipidemia: executive summary, Atherosclerosis. 2014: 232(2):410-413. Performed By: #### 3 016-3, LIPNF, 17068-0 ####[facility] LABCLIA [id number] [place] [address] [place]#### 34083-7 ####[facility] [id number] [address] [place] NON HDL CHOL, NF 120 mg/dL Normal <130 [facility] Comment on above: Order Comment: Zay sandoval Type: BLOOD SPECIMENOrdering Facility: [facility] Address: [address] [place] [address] Result Comment: <130 mg/dL, Optimal 130-159 mg/dL, Near optimal/above optimal 160-189 mg/dL, Borderline high 190-219 mg/dL, High>219 mg/dL, Very highSecondary prevention optimal non HDL Cholesterol levels are recommended to be <100 mg/dL Performed By: #### 3 016-3, LIPNF, 57131-3 ####[facility] [id number] [place] [address] [place]#### 18133-4 ####[place] [facility] [id number] [address] [place] T CHOL/HDL RATIO NF 2.48 mg/dL Normal <5.10 [facility] Comment on above: Order Comment: Zay men Type: BLOOD SPECIMENOrdering Facility: [facility] Address: [address] [place] [address] Performed By: #### 3 016-3, LIPNF, 24962-5 ####[facility] LABCLIA [id number] [place] [address] [place]#### 88423-4 ####[facility] MILLTOWNCLIA [id number] [place] [address] [place] TRIGLYCERIDES, NF 118 mg/dL Normal <150 [facility] Comment on above: Order Comment: Speci men Type: BLOOD SPECIMENOrdering Facility: [facility] Address: [address] [place] [address] Result Comment: <150 mg/dL, Normal 150-199 mg/dL, Borderline high 200-499 mg/dL, High>499 mg/dL, Very high Performed By: #### 3 016-3, LIPNF, 01230-6 ####[facility] LABCLIA [id number] [place] [address] [place]#### 68173-1 ####[facility]ITAL[facility]CLIA [id number] [place] [address] [place] VLDL CHOLESTEROL, NF 24 mg/dL Normal <30 [facility] Comment on above: Order Comment: Speci men Type: BLOOD SPECIMENOrdering Facility: [facility] Address: [address] [place] [address] Performed By: #### 3 016-3, LIPNF, 08357-8 ####[facility] LABCLIA [id number] [place] [address] [place]#### 34942-7 ####[facility] MILLTOWNCLIA [id number] [place] [address] [place] Magnesium [place] [facility] Magnesium [Mass/Vol] 2.2 mg/dL Normal 1.7-2.3 [facility] Comment on above: Order Comment: Speci men Type: BLOOD SPECIMENOrdering Facility: [facility] Address: [address] [place] [address] Performed By: #### 1 9123-9 ####[facility] PAULINE HOLLIDAYLOGANSPORT MEMORIAL HOSPITALFARZANA [id number] [place] [address] [place] PAIN PANEL, UR QUANTon 08-18 6-Npjpqvtogo-0,5-Dimet hyl-3,3-Diphenylpyrrol idine (EDDP) Confirm (U) [Mass/Vol] <6 Normal <6 [facility] Comment on above: Order Comment: Speci men Type: URINE SPECIMENOrdering Facility: [facility] Address: [address] [place] [address] Result Comment: EDDP is a metabolite of methadone. Performed By: #### L [id number] ####[facility] LABIA [id number] [address] [place] 6-Monoacetylmorphine (6-SUNNI) (U) [Mass/Vol] <5 Normal <5 [facility] Comment on above: Order Comment: Speci men Type: URINE SPECIMENOrdering Facility: [facility] Address: [address] [place] [address] Result Comment: 6-MA M (6-monoacetylmorphine, also known as 6-acetylmorphine) is a unique metabolite of heroin. Presence of 6-SUNNI indicates use of heroin. 6-SUNNI is further metabolized to morphine and absence of 6-SUNNI does not rule out the use of heroin. Performed By: #### L [id number] ####[facility] LABIA [id number] [place] [address] [place] Amphetamine Confirm (U) [Mass/Vol] <5 Normal <5 [facility] Comment on above: Order Comment: Speci men Type: URINE SPECIMENOrdering Facility: [facility] Address: [address] [place] [address] Performed By: #### L [id number] ####[place] [id number] [place] [address] [place] Benzoylecgonine Confirm (U) [Mass/Vol] <24 Normal <24 [facility] Comment on above: Order Comment: Speci men Type: URINE SPECIMENOrdering Facility: [facility] Address: [address] [place] [address] Result Comment: Kenneth oylecgonine is a metabolite of cocaine. Performed By: #### L [id number] ####[place] [id number] [place] [address] [place] Buprenorphine (U) [Mass/Vol] <20 Normal <20 [facility] Comment on above: Order Comment: Speci men Type: URINE SPECIMENOrdering Facility: [facility] Address: [address] [place] [address] Performed By: #### L [id number] ####[place] [id number] [place] [address] [place] Cannabinoids Confirm (U) [Mass/Vol] <16 Normal <16 [facility] Comment on above: Order Comment: Speci men Type: URINE SPECIMENOrdering Facility: [facility] Address: [address] [place] [address] Result Comment: Tetr ahydrocannabinol carboxylic acid (THCA) is a metabolite of omzcb-6-shpedfetqxkgsopuqhar which is the main active component of marijuana. Performed By: #### L [id number] ####[facility]PITALIA [id number] [place] [address] [place] Codeine Confirm (U) [Mass/Vol] <11 Normal <11 [facility] Comment on above: Order Comment: Speci men Type: URINE SPECIMENOrdering Facility: [facility] Address: [address] [place] [address] Performed By: #### L [id number] ####[facility] LABIA [id number] [place] [address] [place] Dihydrocodeine Confirm (U) [Mass/Vol] <5 Normal <5 [facility] Comment on above: Order Comment: Speci men Type: URINE SPECIMENOrdering Facility: [facility] Address: [address] [place] [address] Performed By: #### L [id number] ####[facility] LABIA [id number] [place] [address] [place] fentaNYL Confirm (U) [Mass/Vol] <6 Normal <6 [facility] Comment on above: Order Comment: Speci men Type: URINE SPECIMENOrdering Facility: [facility] Address: [address] [place] [address] Performed By: #### L [id number] ####[place] [id number] [place] [address] [place] HYDROcodone Confirm (U) [Mass/Vol] <8 Normal <8 [facility] Comment on above: Order Comment: Speci men Type: URINE SPECIMENOrdering Facility: [facility] Address: [address] [place] [address] Result Comment: Hydr ocodone is a metabolite of dihydrocodeine. Performed By: #### L [id number] ####[facility] LABIA [id number] [place] [address] [place] HYDROmorphone Confirm (U) [Mass/Vol] <5 Normal <5 [facility] Comment on above: Order Comment: Speci men Type: URINE SPECIMENOrdering Facility: [facility] Address: [address] [place] [address] Result Comment: Hydr omorphone is a metabolite of hydrocodone. Performed By: #### L [id number] ####[facility] LABCLIA [id number] [place] [address] [place] Methadone Confirm (U) [Mass/Vol] <16 Normal <16 [facility] Comment on above: Order Comment: Speci men Type: URINE SPECIMENOrdering Facility: [facility] Address: [address] [place] [address] Performed By: #### L [id number] ####[place] [id number] [place] [address] [place] Methamphetamine Confirm (U) [Mass/Vol] <8 Normal <8 [facility] Comment on above: Order Comment: Speci men Type: URINE SPECIMENOrdering Facility: [facility] Address: [address] [place] [address] Performed By: #### L [id number] ####[place] [id number] [address] STATES OF [facility] Morphine Confirm (U) [Mass/Vol] <10 Normal <10 [facility] Comment on above: Order Comment: Speci men Type: URINE SPECIMENOrdering Facility: [facility] Address: [address] [place] [address] Result Comment: Morp shahida is a metabolite of codeine and heroin. Performed By: #### L [id number] ####[place] [id number] [address] [place] Norbuprenorphine (U) [Mass/Vol] <20 Normal <20 [facility] Comment on above: Order Comment: Speci men Type: URINE SPECIMENOrdering Facility: [facility] Address: [address] [place] [address] Result Comment: Norb uprenorphine is the primary active metabolite of buprenorphine. Performed By: #### L [id number] ####[place] [id number] [address] [place] Norfentanyl Confirm (U) [Mass/Vol] <6 Normal <6 [facility] Comment on above: Order Comment: Speci men Type: URINE SPECIMENOrdering Facility: [facility] Address: [address] [place] [address] Result Comment: Norf entanyl is a metabolite of fentanyl. Performed By: #### L [id number] ####[facility] LABIA [id number] [place] [address] [place] Nortramadol (U) [Mass/Vol] >5000 High <20 [facility] Comment on above: Order Comment: Speci men Type: URINE SPECIMENOrdering Facility: [facility] Address: [address] [place] [address] Result Comment: O-De smethyltramadol is a metabolite of tramadol and its presence indicates use of a tramadol containing drug (Ultram). Performed By: #### L [id number] ####[place] [id number] [place] [address] [place] NOTE,UR PAIN ROMAN Normal [facility] Comment on above: Order Comment: Speci men Type: URINE SPECIMENOrdering Facility: [facility] Address: [address] [place] [address] Result Comment: This test is for medical use only.This test was developed and its performance characteristics determined by [facility] Path[facility] [place] (-[facility]). It has not been cleared or approved by the FDA. -[facility] is regulated under CLIA as qualified to perform high-complexity testing. This test is used for clinical purposes. It should not be regarded as investigational or for research. Performed By: #### L [id number] ####[facility]ITAL[facility] [id number] [place] [address] [place] oxyCODONE Confirm (U) [Mass/Vol] <10 Normal <10 [facility] Comment on above: Order Comment: Speci men Type: URINE SPECIMENOrdering Facility: [facility] Address: [address] [place] [address] Performed By: #### L [id number] ####[facility] [id number] [place] [address] [place] oxyMORphone Confirm (U) [Mass/Vol] <5 Normal <5 [facility] Comment on above: Order Comment: Speci men Type: URINE SPECIMENOrdering Facility: [facility] Address: [address] [place] [address] Result Comment: Oxym orphone is a metabolite of oxycodone. Performed By: #### L [id number] ####[facility] LABIA [id number] [address] [place] traMADol Confirm (U) [Mass/Vol] >5208 High <25 [facility] Comment on above: Order Comment: Speci men Type: URINE SPECIMENOrdering Facility: [facility] Address: [address] [place] [address] Result Comment: Pres ence of tramadol indicates use of a tramadol containing drug (Ultram). Tramadol is metabolized to O-Desmethyltramadol. Performed By: #### L [id number] ####[facility] LABIA [id number] [place] [address] [place] SPECIMEN VALIDITY, URINEon 0 1-10-4 CHROMATE,URINE <10 Normal <50 [facility] Comment on above: Order Comment: Speci men Type: URINE SPECIMENOrdering Facility: [facility] Address: [address] [place] [address] Performed By: #### L [id number] ####[facility] LABIA [id number] [place] [address] [place] CREATININE,URINE 124.4 mg/dL Normal 20.0-300.0 [facility] Comment on above: Order Comment: Speci men Type: URINE SPECIMENOrdering Facility: [facility] Address: [address] [place] [address] Performed By: #### L [id number] ####[facility] LABIA [id number] [place] [address] [place] NITRITES,URINE 52 mg/L Normal <500 [facility] Comment on above: Order Comment: Speci men Type: URINE SPECIMENOrdering Facility: [facility] Address: [address] [place] [address] Performed By: #### L [id number] ####[facility] LABCLIA [id number] [place] [address] [place] OXIDANTS,URINE <38 Normal <200 [facility] Comment on above: Order Comment: Speci men Type: URINE SPECIMENOrdering Facility: [facility] Address: [address] [place] [address] Performed By: #### L [id number] ####[facility] LABCLIA [id number] [place] [address] [place] pH (U) 5.8 [pH] Normal 4.5-8.0 [facility] Comment on above: Order Comment: Speci men Type: URINE SPECIMENOrdering Facility: [facility] Address: [address] [place] [address] Performed By: #### L [id number] ####[facility] LABCLIA [id number] [place] [address] [place] SPEC GRAVITY,UR 1.017 Normal 1.003-1.03 5 [facility] Comment on above: Order Comment: Speci men Type: URINE SPECIMENOrdering Facility: [facility] Address: [address] [place] [address] Performed By: #### L [id number] ####[facility] LABCLIA [id number] [place] [address] [place] SPECIMEN VALIDITY QUALITY Specimen quality results within acceptable limits Normal [facility] Comment on above: Order Comment: Speci men Type: URINE SPECIMENOrdering Facility: [facility] Address: [address] [place] [address] Performed By: #### L [id number] ####[facility] LABCLIA [id number] [place] [address] [place] TOX SCREEN ROUT URon 024 Amphetamines Confirm (U) [Mass/Vol] Negative Normal Negative [facility] Comment on above: Order Comment: Speci men Type: URINE SPECIMENOrdering Facility: [facility] Address: [address] [place] [address] Result Comment: Cuto ff threshold at 1000 ng/mL. Performed By: #### U TOX2 ####[facility] LABCLIA [id number] [place] [address] [place] BARBITURATES, URINE Negative Normal Negative [facility] Comment on above: Order Comment: Speci men Type: URINE SPECIMENOrdering Facility: [facility] Address: [address] [place] [address] Result Comment: Cuto ff threshold at 200 ng/mL. Performed By: #### U TOX2 ####[facility] LABCLIA [id number] [place] [address] [place] BENZODIAZEPINES, UR Negative Normal Negative [facility] Comment on above: Order Comment: Speci men Type: URINE SPECIMENOrdering Facility: [facility] Address: [address] [place] [address] Result Comment: Cuto ff threshold at 200 ng/mL. Performed By: #### U TOX2 ####[facility] LABCLIA [id number] [place] [address] [place] Cannabinoids Screen Ql (U) Negative Normal Negative [facility] Comment on above: Order Comment: Speci men Type: URINE SPECIMENOrdering Facility: [facility] Address: [address] [place] [address] Result Comment: Cuto ff threshold at 50 ng/mL. Performed By: #### U TOX2 ####[facility] LABCLIA [id number] [place] [address] [place] Cocaine Ql (U) Negative Normal Negative [facility] Comment on above: Order Comment: Speci men Type: URINE SPECIMENOrdering Facility: [facility] Address: [address] [place] [address] Result Comment: Cuto ff threshold at 300 ng/mL. Performed By: #### U TOX2 ####[facility] LABCLIA [id number] [place] [address] [place] Ethanol (U) [Mass/Vol] <11 Normal <11 [facility] Comment on above: Order Comment: Speci men Type: URINE SPECIMENOrdering Facility: [facility] Address: [address] [place] [address] Performed By: #### U TOX2 ####[facility] LABIA [id number] [place] [address] [place] Opiates Screen Ql (U) Negative Normal Negative [facility] Comment on above: Order Comment: Speci men Type: URINE SPECIMENOrdering Facility: [facility] Address: [address] [place] [address] Result Comment: Cuto ff threshold at 300 ng/mL. Performed By: #### U TOX2 ####[facility] LABIA [id number] [place] [address] [place] oxyCODONE cutoff Screen (U) [Mass/Vol] Negative Normal Negative [facility] Comment on above: Order Comment: Speci men Type: URINE SPECIMENOrdering Facility: [facility] Address: [address] [place] [address] Result Comment: Cuto ff threshold at 100 ng/mL. Performed By: #### U TOX2 ####[facility] LABIA [id number] [place] [address] [place] Phencyclidine Ql (U) Negative Normal Negative [facility] Comment on above: Order Comment: Speci men Type: URINE SPECIMENOrdering Facility: [facility] Address: [address] [place] [address] Result Comment: Cuto ff threshold at 25 ng/mL. Performed By: #### U TOX2 ####[facility] LABCLIA [id number] [place] [address] [place] TSH SerPl-aCncon 08-18-2023 TSH Qn 3.510 m[IU]/L Normal 0.270-4.20 0 [facility] Comment on above: Order Comment: Speci men Type: BLOOD SPECIMENOrdering Facility: [facility] Address: [address] [place] [address] Performed By: #### 3 016-3, LIPNF, 87826-0 ####[facility] LABCLIA [id number] [place] [address] [place]#### 28262-1 ####[facility] MILLTOWANYILIA [id number] [place] [address] [place] CBC W Auto Differential pane l (Bld)on 07-26-2023 Basophils (Bld) [#/Vol] 0.09 10*3/uL Normal <0.11 [facility] Comment on above: Order Comment: Speci men Type: BLOOD SPECIMENOrdering Facility: [facility] Address: [address] [place] [address] Performed By: #### 5 7021-8 ####[facility] H[facility]PITALANYILIA [id number] [place] [address] [place] Basophils/100 WBC (Bld) 2.0 % Normal [facility] Comment on above: Order Comment: Speci men Type: BLOOD SPECIMENOrdering Facility: [facility] Address: [address] [place] [address] Performed By: #### 5 7021-8 ####[facility]ITALNCLIA [id number] [place] [address] [place] Differential cell count method Nom (Bld) Auto Normal [facility] Comment on above: Order Comment: Speci men Type: BLOOD SPECIMENOrdering Facility: [facility] Address: [address] [place] [address] Performed By: #### 5 7021-8 ####[facility]PIT[facility] [id number] [place] [address] [place] Eosinophils (Bld) [#/Vol] 0.04 10*3/uL Normal <0.46 [facility] Comment on above: Order Comment: Speci men Type: BLOOD SPECIMENOrdering Facility: [facility] Address: [address] [place] [address] Performed By: #### 5 7021-8 ####[facility] [id number] [place] [address] [place] Eosinophils/100 WBC (Bld) 0.9 % Normal [facility] Comment on above: Order Comment: Speci men Type: BLOOD SPECIMENOrdering Facility: [facility] Address: [address] [place] [address] Performed By: #### 5 7021-8 ####[facility] [id number] [place] [address] [place] Erythrocyte distribution width (RBC) [Ratio] 16.9 % High 11.5-15.0 [facility] Comment on above: Order Comment: Speci men Type: BLOOD SPECIMENOrdering Facility: [facility] Address: [address] [place] [address] Performed By: #### 5 7021-8 ####[facility] [id number] [place] [address] [place] Hematocrit (Bld) [Volume fraction] 37.4 % Normal 36.0-46.0 [facility] Comment on above: Order Comment: Speci men Type: BLOOD SPECIMENOrdering Facility: [facility] Address: [address] [place] [address] Performed By: #### 5 7021-8 ####[facility] [id number] [place] [address] [place] Hemoglobin (Bld) [Mass/Vol] 12.0 g/dL Normal 11.5-15.5 [facility] Comment on above: Order Comment: Speci men Type: BLOOD SPECIMENOrdering Facility: [facility] Address: [address] [place] [address] Performed By: #### 5 7021-8 ####[facility] [id number] [place] [address] [place] Immature granulocytes (Bld) [#/Vol] 10*3/uL Normal <0.10 [facility] Comment on above: Order Comment: Speci men Type: BLOOD SPECIMENOrdering Facility: [facility] Address: [address] [place] [address] Performed By: #### 5 7021-8 ####[facility] [id number] [place] [address] [place] Immature granulocytes/100 WBC (Bld) 0.0 % Normal [facility] Comment on above: Order Comment: Speci men Type: BLOOD SPECIMENOrdering Facility: [facility] Address: [address] [place] [address] Performed By: #### 5 7021-8 ####[facility] [id number] [place] [address] [place] Lymphocytes (Bld) [#/Vol] 2.35 10*3/uL Normal 1.00-4.00 [facility] Comment on above: Order Comment: Speci men Type: BLOOD SPECIMENOrdering Facility: [facility] Address: [address] [place] [address] Performed By: #### 5 7021-8 ####[facility] [id number] [place] [address] [place] Lymphocytes/100 WBC (Bld) 51.8 % Normal [facility] Comment on above: Order Comment: Speci men Type: BLOOD SPECIMENOrdering Facility: [facility] Address: [address] [place] [address] Performed By: #### 5 7021-8 ####[facility]ITALNCLIA [id number] [place] [address] [place] [facility] MCH (RBC) [Entitic mass] 32.1 pg Normal 26.0-34.0 [facility] Comment on above: Order Comment: Speci men Type: BLOOD SPECIMENOrdering Facility: [facility] Address: [address] [place] [address] Performed By: #### 5 7021-8 ####[facility] [id number] [place] [address] [place] MCHC (RBC) [Mass/Vol] 32.1 g/dL Normal 30.5-36.0 [facility] Comment on above: Order Comment: Speci men Type: BLOOD SPECIMENOrdering Facility: [facility] Address: [address] [place] [address] Performed By: #### 5 7021-8 ####[facility] [id number] [place] [address] [place] MCV (RBC) [Entitic vol] 100.0 fL Normal 80.0-100.0 [facility] Comment on above: Order Comment: Speci men Type: BLOOD SPECIMENOrdering Facility: [facility] Address: [address] [place] [address] Performed By: #### 5 7021-8 ####[facility] [id number] [place] [address] [place] Monocytes (Bld) [#/Vol] 0.50 10*3/uL Normal <0.87 [facility] Comment on above: Order Comment: Speci men Type: BLOOD SPECIMENOrdering Facility: [facility] Address: [address] [place] [address] Performed By: #### 5 7021-8 ####[facility] [id number] [place] [address] [place] Monocytes/100 WBC (Bld) 11.0 % Normal [facility] Comment on above: Order Comment: Speci men Type: BLOOD SPECIMENOrdering Facility: [facility] Address: [address] [place] [address] Performed By: #### 5 7021-8 ####[facility] [id number] [place] [address] [place] Neutrophils (Bld) [#/Vol] 1.56 10*3/uL Normal 1.45-7.50 [facility] Comment on above: Order Comment: Speci men Type: BLOOD SPECIMENOrdering Facility: [facility] Address: [address] [place] [address] Performed By: #### 5 7021-8 ####[facility] [id number] [place] [address] [place] Neutrophils/100 WBC (Bld) 34.3 % Normal [facility] Comment on above: Order Comment: Speci men Type: BLOOD SPECIMENOrdering Facility: [facility] Address: [address] [place] [address] Performed By: #### 5 7021-8 ####[facility] [id number] [place] [address] [place] Nucleated RBC (Bld) [#/Vol] 10*3/uL Normal <0.01 [facility] Comment on above: Order Comment: Speci men Type: BLOOD SPECIMENOrdering Facility: [facility] Address: [address] [place] [address] Performed By: #### 5 7021-8 ####[facility] HOSPITALLIA [id number] [place] [address] [place] Nucleated RBC/100 WBC (Bld) [Ratio] 0.0 /100 WBC Normal [facility] Comment on above: Order Comment: Speci men Type: BLOOD SPECIMENOrdering Facility: [facility] Address: [address] [place] [address] Performed By: #### 5 7021-8 ####[facility] MGGLEN ECHONCFARZANA [id number] [place] [address] [place] Platelet mean volume (Bld) [Entitic vol] 9.7 fL Normal 9.0-12.7 [facility] Comment on above: Order Comment: Speci men Type: BLOOD SPECIMENOrdering Facility: [facility] Address: [address] [place] [address] Performed By: #### 5 7021-8 ####[facility] [id number] [place] [address] [place] Platelets (Bld) [#/Vol] 270 10*3/uL Normal 150-400 [facility] Comment on above: Order Comment: Speci men Type: BLOOD SPECIMENOrdering Facility: [facility] Address: [address] [place] [address] Performed By: #### 5 7021-8 ####[facility] HOSPITALNCLIA [id number] [place] [address] [place] RBC (Bld) [#/Vol] 3.74 10*6/uL Low 3.90-5.20 [facility] Comment on above: Order Comment: Speci men Type: BLOOD SPECIMENOrdering Facility: [facility] Address: [address] [place] [address] Performed By: #### 5 7021-8 ####[facility] HOSPITALNCLIA [id number] [place] [address] [place] WBC (Bld) [#/Vol] 4.54 10*3/uL Normal 3.70-11.00 [facility] Comment on above: Order Comment: Speci men Type: BLOOD SPECIMENOrdering Facility: [facility] Address: [address] [place] [address] Performed By: #### 5 7021-8 ####[facility] HOSPITALNCA [id number] [place] [address] [place] CNOVSPon 07-26-2023 CNOVSP Normal [facility] Cancer Ag125 SerPl-aCncon Cancer Ag 125 Qn 6 [arb'U]/mL Normal <[address] [facility] Comment on above: Order Comment: Speci men Type: BLOOD SPECIMENOrdering Facility: [facility] Address: [address] [place] [address] Result Comment: CA 1 25 test methodology [...] (CA 125 II) [package insert V 1.0 [place]an]. [employer], [place], [place] (May 2015) Performed By: #### 1 0334-1 ####[facility] LABCLIA [id number] [place] [address] [place] Comprehensive metabolic 2000 panelon 07-26-2023 Albumin [Mass/Vol] 4.3 g/dL Normal 3.9-4.[address] [facility] Comment on above: Order Comment: Speci men Type: BLOOD SPECIMENOrdering Facility: [facility] Address: [address] [place] [address] Performed By: #### 2 4323-8, 59251-2 ####[facility] HOSPITALNCLIA [id number] [place] [address] [place] ALP [Catalytic activity/Vol] 99 U/L Normal 34-123 [facility] Comment on above: Order Comment: Speci men Type: BLOOD SPECIMENOrdering Facility: [facility] Address: [address] [place] [address] Performed By: #### 2 4323-8, ####[facility] PAULINE MILLTOWNCLIA [id number] [place] [address] [place] ALT [Catalytic activity/Vol] 19 U/L Normal 7-38 [facility] Comment on above: Order Comment: Speci men Type: BLOOD SPECIMENOrdering Facility: [facility] Address: [address] [place] [address] Performed By: #### 2 432-8, ####[facility] MILLTOWNCLIA [id number] [place] [address] [place] Anion gap [Moles/Vol] 12 mmol/L Normal 9-18 [facility] Comment on above: Order Comment: Speci men Type: BLOOD SPECIMENOrdering Facility: [facility] Address: [address] [place] [address] Performed By: #### 2 432-8, ####[facility] HOSPITALNCLIA [id number] [place] [address] [place] AST [Catalytic activity/Vol] 26 U/L Normal 13-35 [facility] Comment on above: Order Comment: Speci men Type: BLOOD SPECIMENOrdering Facility: [facility] Address: [address] [place] [address] Performed By: #### 2 4328, ####[facility] MILLTOWNCLIA [id number] [place] [address] [place] Bilirubin [Mass/Vol] 0.3 mg/dL Normal 0.2-1.3 [facility] Comment on above: Order Comment: Speci men Type: BLOOD SPECIMENOrdering Facility: [facility] Address: [address] [place] [address] Performed By: #### 2 4323-8, ####[facility]KAWNCLIA [id number] [place] [address] [place] Calcium [Mass/Vol] 10.2 mg/dL Normal 8.5-10.[address] [facility] Comment on above: Order Comment: Speci men Type: BLOOD SPECIMENOrdering Facility: [facility] Address: [address] [place] [address] Performed By: #### 2 4323-8, ####[facility] MILLTOWNCLIA [id number] [place] [address] [place] Chloride [Moles/Vol] 103 mmol/L Normal 97-105 [facility] Comment on above: Order Comment: Speci men Type: BLOOD SPECIMENOrdering Facility: [facility] Address: [address] [place] [address] Performed By: #### 2 4323-8, ####[facility] MILLWNCLIA [id number] [place] [address] [place] CO2 [Moles/Vol] 22 mmol/L Normal 22-30 [facility] Comment on above: Order Comment: Speci men Type: BLOOD SPECIMENOrdering Facility: [facility] Address: [address] [place] [address] Performed By: #### 2 4323-8, ####[facility] MILLTOWNCLIA [id number] [place] [address] [place] Creatinine [Mass/Vol] 0.61 mg/dL Normal 0.58-0.96 [facility] Comment on above: Order Comment: Speci men Type: BLOOD SPECIMENOrdering Facility: [facility] Address: [address] [place] [address] Performed By: #### 2 4323-8, ####[facility] MILLTOWNCLIA [id number] [place] [address] [place] Creatinine and Glomerular filtration rate.predicted panel (S/P/Bld) 88 mL/min/1.73m??? Normal >=60 [facility] Comment on above: Order Comment: Zay sandoval Type: BLOOD SPECIMENOrdering Facility: [facility] Address: [address] [place] [address] Result Comment: Marlyn mated Glomerular Filtration Rate [...] actual GFR. Performed By: #### 2 4323-8, 70968-0 ####[facility] [id number] [place] [address] [place] Glucose [Mass/Vol] 102 mg/dL High 74-[address] [facility] Comment on above: Order Comment: Zay sandoval Type: BLOOD SPECIMENOrdering Facility: [facility] Address: [address] [place] [address] Result Comment: The [place] Diabetes Association (ADA) provides guidance for cutoff [...] Standards of Medical Care in Diabetes 2016, [place] [employer]. Diabetes Care. 2016.39(Suppl 1). Performed By: #### 2 4323-8, 78107-6 ####[facility] [id number] [place] [address] [place] Potassium [Moles/Vol] 4.5 mmol/L Normal 3.7-5.1 [facility] Comment on above: Order Comment: Speci men Type: BLOOD SPECIMENOrdering Facility: [facility] Address: [address] [place] [address] Performed By: #### 2 4323-8, ####[facility] MILLGLEN ECHONCLIA [id number] [place] [address] [place] Protein [Mass/Vol] 7.7 g/dL Normal 6.3-8.[address] [facility] Comment on above: Order Comment: Speci men Type: BLOOD SPECIMENOrdering Facility: [facility] Address: [address] [place] [address] Performed By: #### 2 432-8, ####[facility] H[facility]PITALNCLIA [id number] [place] [address] [place] Sodium [Moles/Vol] 137 mmol/L Normal 136-[address] [facility] Comment on above: Order Comment: Speci men Type: BLOOD SPECIMENOrdering Facility: [facility] Address: [address] [place] [address] Performed By: #### 2 432-8, ####[facility] HOSPITALNCLIA [id number] [place] [address] [place] Urea nitrogen [Mass/Vol] 26 mg/dL High 7-21 [facility] Comment on above: Order Comment: Speci men Type: BLOOD SPECIMENOrdering Facility: [facility] Address: [address] [place] [address] Performed By: #### 2 4323-8, ####[facility] H[facility]PITALNCLIA [id number] [place] [address] [place] Magnesium SerPl-mCncon 07-26 Magnesium [Mass/Vol] 2.1 mg/dL Normal 1.7-2.3 [facility] Comment on above: Order Comment: Speci men Type: BLOOD SPECIMENOrdering Facility: [facility] Address: [place] [address] Performed By: #### 2 4323-8, 22605-3 ####[facility]ITALNCLIA [id number] [place] [address] [place] CNPNon 07-16-2023 CNPN Normal [facility] Basic metabolic 2000 panelon 07-14-2023 Anion gap [Moles/Vol] 11 mmol/L Normal 9-18 [facility] Comment on above: Order Comment: Speci men Type: BLOOD SPECIMENOrdering Facility: [facility] Address: [place] [address] Performed By: #### 2 4321-2 ####[facility] [id number] [place] [address] [place] Calcium [Mass/Vol] 9.8 mg/dL Normal 8.5-10.[address] [facility] Comment on above: Order Comment: Speci men Type: BLOOD SPECIMENOrdering Facility: [facility] Address: [place] [address] Performed By: #### 2 4321-2 ####[facility] HOSPITALNCLIA [id number] [place] [address] [place] Chloride [Moles/Vol] 103 mmol/L Normal 97-105 [facility] Comment on above: Order Comment: Speci men Type: BLOOD SPECIMENOrdering Facility: [facility] Address: [address] [place] [address] Performed By: #### 2 4321-2 ####[facility] H[facility]PITALNCLIA [id number] [place] [address] [place] CO2 [Moles/Vol] 26 mmol/L Normal 22-30 [facility] Comment on above: Order Comment: Speci men Type: BLOOD SPECIMENOrdering Facility: [facility] Address: [address] [place] [address] Performed By: #### 2 4321-2 ####[facility] [id number] [place] [address] [place] Creatinine [Mass/Vol] 0.63 mg/dL Normal 0.58-0.96 [facility] Comment on above: Order Comment: Speci men Type: BLOOD SPECIMENOrdering Facility: [facility] Address: [address] [place] [address] Performed By: #### 2 4321-2 ####[facility] H[facility]PITALNCLIA [id number] [place] [address] [place] Creatinine and Glomerular filtration rate.predicted panel (S/P/Bld) 88 mL/min/1.73m??? Normal >=60 [facility] Comment on above: Order Comment: Zay men Type: BLOOD SPECIMENOrdering Facility: [facility] Address: [place] [address] Result Comment: Marlyn mated Glomerular Filtration Rate [...] actual GFR. Performed By: #### 2 4321-2 ####[facility]ITALNCLIA [id number] [place] [address] [place] Glucose [Mass/Vol] 104 mg/dL High 74-[address] [facility] Comment on above: Order Comment: Pratibhai men Type: BLOOD SPECIMENOrdering Facility: [facility] Address: [address] [place] [address] Result Comment: The [place] Diabetes Association (ADA) provides guidance for cutoff [...] Standards of Medical Care in Diabetes 2016, [place] [employer]. Diabetes Care. 2016.39(Suppl 1). Performed By: #### 2 4321-2 ####[facility]KAWCALIA [id number] [place] [address] [place] Potassium [Moles/Vol] 4.4 mmol/L Normal 3.7-5.1 [facility] Comment on above: Order Comment: Speci men Type: BLOOD SPECIMENOrdering Facility: [facility] Address: [address] [place] [address] Performed By: #### 2 4321-2 ####[facility] [id number] [place] [address] [place] Sodium [Moles/Vol] 140 mmol/L Normal 136-[address] [facility] Comment on above: Order Comment: Pratibhai lori Type: BLOOD SPECIMENOrdering Facility: [facility] Address: [address] [place] [address] Performed By: #### 2 4321-2 ####[facility] [id number] [place] [address] [place] Urea nitrogen [Mass/Vol] 20 mg/dL Normal 7-21 [facility] Comment on above: Order Comment: Speci men Type: BLOOD SPECIMENOrdering Facility: [facility] Address: [address] [place] [address] Performed By: #### 2 4321-2 ####[facility] HOSPITALLI [id number] [place] [address] [place] CBC W Auto Differential pane l (Bld)on 07-14-2023 Basophils (Bld) [#/Vol] 10*3/uL Normal <0.11 [facility] Comment on above: Order Comment: Speci men Type: BLOOD SPECIMENOrdering Facility: [facility] Address: [address] [place] [address] Performed By: #### 5 7021-8 ####[facility]KAWCAL[facility] [id number] [place] [address] [place] Basophils/100 WBC (Bld) 0.3 % Normal [facility] Comment on above: Order Comment: Speci men Type: BLOOD SPECIMENOrdering Facility: [facility] Address: [address] [place] [address] Performed By: #### 5 7021-8 ####[facility] [id number] [place] [address] [place] Differential cell count method Nom (Bld) Auto Normal [facility] Comment on above: Order Comment: Speci men Type: BLOOD SPECIMENOrdering Facility: [facility] Address: [address] [place] [address] Performed By: #### 5 7021-8 ####[facility] HOSPITALA [id number] [place] [address] [place] Eosinophils (Bld) [#/Vol] 0.03 10*3/uL Normal <0.46 [facility] Comment on above: Order Comment: Speci men Type: BLOOD SPECIMENOrdering Facility: [facility] Address: [address] [place] [address] Performed By: #### 5 7021-8 ####[facility] HOSPITALA [id number] [place] [address] [place] Eosinophils/100 WBC (Bld) 1.0 % Normal [facility] Comment on above: Order Comment: Speci men Type: BLOOD SPECIMENOrdering Facility: [facility] Address: [address] [place] [address] Performed By: #### 5 7021-8 ####[facility] HOSPITALNCLIA [id number] [place] [address] [place] Erythrocyte distribution width (RBC) [Ratio] 16.1 % High 11.5-15.0 [facility] Comment on above: Order Comment: Speci men Type: BLOOD SPECIMENOrdering Facility: [facility] Address: [address] [place] [address] Performed By: #### 5 7021-8 ####[facility] [id number] [place] [address] [place] Hematocrit (Bld) [Volume fraction] 35.8 % Low 36.0-46.0 [facility] Comment on above: Order Comment: Speci men Type: BLOOD SPECIMENOrdering Facility: [facility] Address: [address] [place] [address] Performed By: #### 5 7021-8 ####[facility] [id number] [place] [address] [place] Hemoglobin (Bld) [Mass/Vol] 11.6 g/dL Normal 11.5-15.5 [facility] Comment on above: Order Comment: Speci men Type: BLOOD SPECIMENOrdering Facility: [facility] Address: [address] [place] [address] Performed By: #### 5 7021-8 ####[facility] HOSPITALLIA [id number] [place] [address] [place] Immature granulocytes (Bld) [#/Vol] 10*3/uL Normal <0.10 [facility] Comment on above: Order Comment: Speci men Type: BLOOD SPECIMENOrdering Facility: [facility] Address: [address] [place] [address] Performed By: #### 5 7021-8 ####[facility] [id number] [place] [address] [place] Immature granulocytes/100 WBC (Bld) 0.3 % Normal [facility] Comment on above: Order Comment: Speci men Type: BLOOD SPECIMENOrdering Facility: [facility] Address: [address] [place] [address] Performed By: #### 5 7021-8 ####[facility] [id number] [place] [address] [place] Lymphocytes (Bld) [#/Vol] 1.62 10*3/uL Normal 1.00-4.00 [facility] Comment on above: Order Comment: Speci men Type: BLOOD SPECIMENOrdering Facility: [facility] Address: [address] [place] [address] Performed By: #### 5 7021-8 ####[facility] HOSPITALNCA [id number] [place] [address] [place] Lymphocytes/100 WBC (Bld) 54.0 % Normal [facility] Comment on above: Order Comment: Speci men Type: BLOOD SPECIMENOrdering Facility: [facility] Address: [address] [place] [address] Performed By: #### 5 7021-8 ####[facility] HOSPITALNCLIA [id number] [place] [address] [place] MCH (RBC) [Entitic mass] 31.8 pg Normal 26.0-34.0 [facility] Comment on above: Order Comment: Speci men Type: BLOOD SPECIMENOrdering Facility: [facility] Address: [address] [place] [address] Performed By: #### 5 7021-8 ####[facility] HOSPITALNCLI [id number] [place] [address] [place] MCHC (RBC) [Mass/Vol] 32.4 g/dL Normal 30.5-36.0 [facility] Comment on above: Order Comment: Speci men Type: BLOOD SPECIMENOrdering Facility: [facility] Address: [address] [place] [address] Performed By: #### 5 7021-8 ####[facility] HOSPITALNCFARZANA [id number] [place] [address] [place] MCV (RBC) [Entitic vol] 98.1 fL Normal 80.0-100.0 [facility] Comment on above: Order Comment: Speci men Type: BLOOD SPECIMENOrdering Facility: [facility] Address: [address] [place] [address] Performed By: #### 5 7021-8 ####[facility] HOSPITALNCLI [id number] [place] [address] [place] Monocytes (Bld) [#/Vol] 0.23 10*3/uL Normal <0.87 [facility] Comment on above: Order Comment: Speci men Type: BLOOD SPECIMENOrdering Facility: [facility] Address: [address] [place] [address] Performed By: #### 5 7021-8 ####[facility] HOSPITALA [id number] [place] [address] [place] Monocytes/100 WBC (Bld) 7.7 % Normal [facility] Comment on above: Order Comment: Speci men Type: BLOOD SPECIMENOrdering Facility: [facility] Address: [address] [place] [address] Performed By: #### 5 7021-8 ####[facility] HOSPITALLI [id number] [place] [address] [place] Neutrophils (Bld) [#/Vol] 1.10 10*3/uL Low 1.45-7.50 [facility] Comment on above: Order Comment: Speci men Type: BLOOD SPECIMENOrdering Facility: [facility] Address: [address] [place] [address] Performed By: #### 5 7021-8 ####[facility] HOSPITALLIA [id number] [place] [address] [place] Neutrophils/100 WBC (Bld) 36.7 % Normal [facility] Comment on above: Order Comment: Speci men Type: BLOOD SPECIMENOrdering Facility: [facility] Address: [address] [place] [address] Performed By: #### 5 7021-8 ####[facility] [id number] [place] [address] [place] Nucleated RBC (Bld) [#/Vol] 10*3/uL Normal <0.01 [facility] Comment on above: Order Comment: Speci men Type: BLOOD SPECIMENOrdering Facility: [facility] Address: [address] [place] [address] Performed By: #### 5 7021-8 ####[facility] [id number] [place] [address] [place] Nucleated RBC/100 WBC (Bld) [Ratio] 0.0 /100 WBC Normal [facility] Comment on above: Order Comment: Speci men Type: BLOOD SPECIMENOrdering Facility: [facility] Address: [address] [place] [address] Performed By: #### 5 7021-8 ####[facility] [id number] [place] [address] [place] Platelet mean volume (Bld) [Entitic vol] 9.1 fL Normal 9.0-12.7 [facility] Comment on above: Order Comment: Speci men Type: BLOOD SPECIMENOrdering Facility: [facility] Address: [address] [place] [address] Performed By: #### 5 7021-8 ####[facility] HOSPITALNCLI [id number] [place] [address] [place] Platelets (Bld) [#/Vol] 373 10*3/uL Normal 150-400 [facility] Comment on above: Order Comment: Speci men Type: BLOOD SPECIMENOrdering Facility: [facility] Address: [address] [place] [address] Performed By: #### 5 7021-8 ####[facility] HOSPITALLAILAA [id number] [place] [address] [place] RBC (Bld) [#/Vol] 3.65 10*6/uL Low 3.90-5.20 [facility] Comment on above: Order Comment: Speci men Type: BLOOD SPECIMENOrdering Facility: [facility] Address: [address] [place] [address] Performed By: #### 5 7021-8 ####[facility] HOSPITALNCFARZANA [id number] [place] [address] [place] WBC (Bld) [#/Vol] 3.00 10*3/uL Low 3.70-11.00 [facility] Comment on above: Order Comment: Speci men Type: BLOOD SPECIMENOrdering Facility: [facility] Address: [address] [place] [address] Performed By: #### 5 7021-8 ####[facility] HOSPITALNCLIDavid [id number] [place] [address] [place] CNPNon 07-12-2023 CNPN Normal [facility] CBC W Auto Differential pane l (Bld)on 07-07-2023 Basophils (Bld) [#/Vol] 0.03 10*3/uL Normal <0.11 [facility] Comment on above: Order Comment: Speci men Type: BLOOD SPECIMENOrdering Facility: [facility] Address: [address] [place] [address] Performed By: #### 5 7021-8 ####[facility] HOSPITALNCLIA [id number] [place] [address] [place] Basophils/100 WBC (Bld) 1.0 % Normal [facility] Comment on above: Order Comment: Speci men Type: BLOOD SPECIMENOrdering Facility: [facility] Address: [address] [place] [address] Performed By: #### 5 7021-8 ####[facility]ITALNC[facility] [id number] [place] [address] [place] Differential cell count method Nom (Bld) Auto Normal [facility] Comment on above: Order Comment: Speci men Type: BLOOD SPECIMENOrdering Facility: [facility] Address: [address] [place] [address] Performed By: #### 5 7021-8 ####[facility] [id number] [place] [address] [place] Eosinophils (Bld) [#/Vol] 0.05 10*3/uL Normal <0.46 [facility] Comment on above: Order Comment: Speci men Type: BLOOD SPECIMENOrdering Facility: [facility] Address: [address] [place] [address] Performed By: #### 5 7021-8 ####[facility] [id number] [place] [address] [place] Eosinophils/100 WBC (Bld) 1.6 % Normal [facility] Comment on above: Order Comment: Speci men Type: BLOOD SPECIMENOrdering Facility: [facility] Address: [address] [place] [address] Performed By: #### 5 7021-8 ####[facility] [id number] [place] [address] [place] Erythrocyte distribution width (RBC) [Ratio] 15.3 % High 11.5-15.0 [facility] Comment on above: Order Comment: Speci men Type: BLOOD SPECIMENOrdering Facility: [facility] Address: [address] [place] [id number] Performed By: #### 5 7021-8 ####[facility] MGLOGANSPORT MEMORIAL HOSPITALLIA [id number] [place] [address] [place] Hematocrit (Bld) [Volume fraction] 36.1 % Normal 36.0-46.0 [facility] Comment on above: Order Comment: Speci men Type: BLOOD SPECIMENOrdering Facility: [facility] Address: [address] [place] [address] Performed By: #### 5 7021-8 ####[facility] HOSPITALNCLIA [id number] [place] [address] [place] Hemoglobin (Bld) [Mass/Vol] 11.6 g/dL Normal 11.5-15.5 [facility] Comment on above: Order Comment: Speci men Type: BLOOD SPECIMENOrdering Facility: [facility] Address: [address] [place] [address] Performed By: #### 5 7021-8 ####[facility]ITALA [id number] [place] [address] [place] Immature granulocytes (Bld) [#/Vol] 10*3/uL Normal <0.10 [facility] Comment on above: Order Comment: Speci men Type: BLOOD SPECIMENOrdering Facility: [facility] Address: [address] [place] [address] Performed By: #### 5 7021-8 ####[facility] [id number] [place] [address] [place] Immature granulocytes/100 WBC (Bld) 0.0 % Normal [facility] Comment on above: Order Comment: Speci men Type: BLOOD SPECIMENOrdering Facility: [facility] Address: [address] [place] [address] Performed By: #### 5 7021-8 ####[facility] HOSPITALLI [id number] [place] [address] [place] Lymphocytes (Bld) [#/Vol] 1.82 10*3/uL Normal 1.00-4.00 [facility] Comment on above: Order Comment: Speci men Type: BLOOD SPECIMENOrdering Facility: [facility] Address: [address] [place] [address] Performed By: #### 5 7021-8 ####[facility]ITALA [id number] [place] [address] [place] Lymphocytes/100 WBC (Bld) 58.7 % Normal [facility] Comment on above: Order Comment: Speci men Type: BLOOD SPECIMENOrdering Facility: [facility] Address: [address] [place] [address] Performed By: #### 5 7021-8 ####[facility] [id number] [place] [address] [place] MCH (RBC) [Entitic mass] 31.7 pg Normal 26.0-34.0 [facility] Comment on above: Order Comment: Speci men Type: BLOOD SPECIMENOrdering Facility: [facility] Address: [address] [place] [address] Performed By: #### 5 7021-8 ####[facility] [id number] [place] [address] [place] MCHC (RBC) [Mass/Vol] 32.1 g/dL Normal 30.5-36.0 [facility] Comment on above: Order Comment: Speci men Type: BLOOD SPECIMENOrdering Facility: [facility] Address: [address] [place] [address] Performed By: #### 5 7021-8 ####[facility] [id number] [place] [address] [place] MCV (RBC) [Entitic vol] 98.6 fL Normal 80.0-100.0 [facility] Comment on above: Order Comment: Speci men Type: BLOOD SPECIMENOrdering Facility: [facility] Address: [address] [place] [address] Performed By: #### 5 7021-8 ####[facility] MGROMAIN [id number] [place] [address] [place] Monocytes (Bld) [#/Vol] 0.21 10*3/uL Normal <0.87 [facility] Comment on above: Order Comment: Speci men Type: BLOOD SPECIMENOrdering Facility: [facility] Address: [address] [place] [address] Performed By: #### 5 7021-8 ####[facility] HOSPITALANYIA [id number] [place] [address] [place] Monocytes/100 WBC (Bld) 6.8 % Normal [facility] Comment on above: Order Comment: Speci men Type: BLOOD SPECIMENOrdering Facility: [facility] Address: [address] [place] [address] Performed By: #### 5 7021-8 ####[facility] [id number] [place] [address] [place] Neutrophils (Bld) [#/Vol] 0.99 10*3/uL Low 1.45-7.50 [facility] Comment on above: Order Comment: Speci men Type: BLOOD SPECIMENOrdering Facility: [facility] Address: [address] [place] [address] Performed By: #### 5 7021-8 ####[facility]ITALLIA [id number] [place] [address] [place] Neutrophils/100 WBC (Bld) 31.9 % Normal [facility] Comment on above: Order Comment: Speci men Type: BLOOD SPECIMENOrdering Facility: [facility] Address: [address] [place] [address] Performed By: #### 5 7021-8 ####[facility]KAWNCLIA [id number] [place] [address] [place] Nucleated RBC (Bld) [#/Vol] 10*3/uL Normal <0.01 [facility] Comment on above: Order Comment: Speci men Type: BLOOD SPECIMENOrdering Facility: [facility] Address: [address] [place] [address] Performed By: #### 5 7021-8 ####[facility] [id number] [place] [address] [place] Nucleated RBC/100 WBC (Bld) [Ratio] 0.0 /100 WBC Normal [facility] Comment on above: Order Comment: Speci men Type: BLOOD SPECIMENOrdering Facility: [facility] Address: [address] [place] [address] Performed By: #### 5 7021-8 ####[facility] [id number] [place] [address] [place] Platelet mean volume (Bld) [Entitic vol] 9.5 fL Normal 9.0-12.7 [facility] Comment on above: Order Comment: Speci men Type: BLOOD SPECIMENOrdering Facility: [facility] Address: [address] [place] [address] Performed By: #### 5 7021-8 ####[facility]ALL[facility] [id number] [place] [address] [place] Platelets (Bld) [#/Vol] 190 10*3/uL Normal 150-400 [facility] Comment on above: Order Comment: Speci men Type: BLOOD SPECIMENOrdering Facility: [facility] Address: [address] [place] [address] Performed By: #### 5 7021-8 ####[facility] HOSPITALNCLIA [id number] [place] [address] [place] RBC (Bld) [#/Vol] 3.66 10*6/uL Low 3.90-5.20 [facility] Comment on above: Order Comment: Speci men Type: BLOOD SPECIMENOrdering Facility: [facility] Address: [address] [place] [address] Performed By: #### 5 7021-8 ####[facility] HOSPITALNCA [id number] [place] [address] [place] WBC (Bld) [#/Vol] 3.10 10*3/uL Low 3.70-11.00 [facility] Comment on above: Order Comment: Speci men Type: BLOOD SPECIMENOrdering Facility: [facility] Address: [address] [place] [address] Performed By: #### 5 7021-8 ####[facility] [id number] [address] [place] CNOVSPon 07-07-2023 CNOVSP Normal [facility] Cancer Ag125 SerPl-aCncon Cancer Ag 125 Qn 6 [arb'U]/mL Normal <[address] [facility] Comment on above: Order Comment: Speci men Type: BLOOD SPECIMENOrdering Facility: [facility] Address: [address] [place] [address] Result Comment: CA 1 25 test methodology [...] (CA 125 II) [package insert V 1.0 [place]]. [employer], [place], [place] (May 2015) Performed By: #### 1 0334-1 ####[facility] LABCLIA [id number] [address] [place] Comprehensive metabolic 2000 panelon 07-07-2023 Albumin [Mass/Vol] 4.4 g/dL Normal 3.9-4.[address] [facility] Comment on above: Order Comment: Speci men Type: BLOOD SPECIMENOrdering Facility: [facility] Address: [address] [place] [address] Performed By: #### 1 9123-9, 93456-4 ####[facility] MILLTOWANYILIA [id number] [place] [address] [place] ALP [Catalytic activity/Vol] 93 U/L Normal 34-123 [facility] Comment on above: Order Comment: Speci men Type: BLOOD SPECIMENOrdering Facility: [facility] Address: [address] [place] [address] Performed By: #### 1 9123-9, 08831-0 ####[facility]OPKAWANYIL[facility] [id number] [place] [address] [place] ALT [Catalytic activity/Vol] 9 U/L Normal 7-38 [facility] Comment on above: Order Comment: Speci men Type: BLOOD SPECIMENOrdering Facility: [facility] Address: [address] [place] [address] Performed By: #### 1 9123-9, 90679-6 ####[facility]ALL[facility] [id number] [place] [address] [place] Anion gap [Moles/Vol] 9 mmol/L Normal 9-18 [facility] Comment on above: Order Comment: Speci men Type: BLOOD SPECIMENOrdering Facility: [facility] Address: [address] [place] [address] Performed By: #### 1 9123-9, 43649-4 ####[facility] MILLTOWNCLIA [id number] [place] [address] [place] AST [Catalytic activity/Vol] 18 U/L Normal 13-35 [facility] Comment on above: Order Comment: Speci men Type: BLOOD SPECIMENOrdering Facility: [facility] Address: [address] [place] [address] Performed By: #### 1 9123-9, 31405-0 ####[facility] PAULINE MGWNCSTEFANIEA [id number] [place] [address] [place] Bilirubin [Mass/Vol] 0.4 mg/dL Normal 0.2-1.3 [facility] Comment on above: Order Comment: Speci men Type: BLOOD SPECIMENOrdering Facility: [facility] Address: [address] [place] [address] Performed By: #### 1 9123-9, 45496-2 ####[facility] HOSPITALNCFARZANA [id number] [place] [address] [place] Calcium [Mass/Vol] 10.0 mg/dL Normal 8.5-10.[address] [facility] Comment on above: Order Comment: Speci men Type: BLOOD SPECIMENOrdering Facility: [facility] Address: [address] [place] [address] Performed By: #### 1 9123-9, 89623-2 ####[facility] HOSPITALNCSTEFANIEA [id number] [place] [address] [place] Chloride [Moles/Vol] 103 mmol/L Normal 97-105 [facility] Comment on above: Order Comment: Speci men Type: BLOOD SPECIMENOrdering Facility: [facility] Address: [address] [place] [address] Performed By: #### 1 9123-9, 53541-3 ####[facility] HOSPITALNCLIA [id number] [place] [address] [place] CO2 [Moles/Vol] 24 mmol/L Normal 22-30 [facility] Comment on above: Order Comment: Speci men Type: BLOOD SPECIMENOrdering Facility: [facility] Address: [address] [place] [address] Performed By: #### 1 9123-9, 10724-0 ####[facility] H[facility]PITALNCLIA [id number] [place] [address] [place] Creatinine [Mass/Vol] 0.64 mg/dL Normal 0.58-0.96 [facility] Comment on above: Order Comment: Speci men Type: BLOOD SPECIMENOrdering Facility: [facility] Address: [address] [place] [address] Performed By: #### 1 9123-9, 76354-8 ####[facility] HOSPITALNCLI [id number] [place] [address] [place] Creatinine and Glomerular filtration rate.predicted panel (S/P/Bld) 87 mL/min/1.73m??? Normal >=60 [facility] Comment on above: Order Comment: Zay sandoval Type: BLOOD SPECIMENOrdering Facility: [facility] Address: [address] [place] [address] Result Comment: Marlyn mated Glomerular Filtration Rate [...] actual GFR. Performed By: #### 1 9123-9, 90433-8 ####[facility]ITALLIA [id number] [place] [address] [place] Glucose [Mass/Vol] 102 mg/dL High 74-[address] [facility] Comment on above: Order Comment: Pratibhai lori Type: BLOOD SPECIMENOrdering Facility: [facility] Address: [address] [place] [address] Result Comment: The [place] Diabetes [employer] (ADA) provides guidance for cutoff [...] Standards of Medical Care in Diabetes 2016, [place] [employer]. Diabetes Care. 2016.39(Suppl 1). Performed By: #### 1 9123-9, 48153-6 ####[facility] MILLTOWNCLIA [id number] [place] [address] [place] Potassium [Moles/Vol] 4.1 mmol/L Normal 3.7-5.1 [facility] Comment on above: Order Comment: Speci men Type: BLOOD SPECIMENOrdering Facility: [facility] Address: [address] [place] [address] Performed By: #### 1 9123-9, ####[facility]ITALLIA [id number] [place] [address] [place] Protein [Mass/Vol] 7.7 g/dL Normal 6.3-8.[address] [facility] Comment on above: Order Comment: Speci men Type: BLOOD SPECIMENOrdering Facility: [facility] Address: [address] [place] [address] Performed By: #### 1 9123-9, ####[facility]KAWNCLIA [id number] [place] [address] [place] Sodium [Moles/Vol] 136 mmol/L Normal 136-[address] [facility] Comment on above: Order Comment: Speci men Type: BLOOD SPECIMENOrdering Facility: [facility] Address: [address] [place] [address] Performed By: #### 1 9123-9, ####[facility] MILLWNCLIA [id number] [place] [address] [place] Urea nitrogen [Mass/Vol] 26 mg/dL High 7-21 [facility] Comment on above: Order Comment: Speci men Type: BLOOD SPECIMENOrdering Facility: [facility] Address: [address] [place] [address] Performed By: #### 1 9123-9, 97551-3 ####[facility] HOSPITALNCLIA [id number] [place] [address] [place] Magnesium SerPl-mCncon 07-07 Magnesium [Mass/Vol] 1.9 mg/dL Normal 1.7-2.3 [facility] Comment on above: Order Comment: Speci men Type: BLOOD SPECIMENOrdering Facility: [facility] Address: [address] [place] [address] Performed By: #### 1 9123-9, 90711-6 ####[facility] HOSPITALNCLIA [id number] [place] [address] [place] CNPNon 06-17-2023 CNPN Normal [facility] CNPNon 06-11-2023 CNPN Normal [facility] Comprehensive metabolic 2000 panelon 06-10-2023 Albumin [Mass/Vol] 4.0 g/dL Normal 3.9-4.[address] [facility] Comment on above: Order Comment: Speci men Type: BLOOD SPECIMENOrdering Facility: [facility] Address: [address] [place] [address] Performed By: #### 2 4323-8 ####[facility] H[facility]PITALNCLIA [id number] [place] [address] [place] ALP [Catalytic activity/Vol] 90 U/L Normal 34-123 [facility] Comment on above: Order Comment: Speci men Type: BLOOD SPECIMENOrdering Facility: [facility] Address: [address] [place] [address] Performed By: #### 2 4323-8 ####[facility] PAULINE MILLTOWNCLIA [id number] [place] [address] [place] ALT [Catalytic activity/Vol] 8 U/L Normal 7-38 [facility] Comment on above: Order Comment: Speci men Type: BLOOD SPECIMENOrdering Facility: [facility] Address: [address] [place] [address] Performed By: #### 2 4323-8 ####[facility] MILLTOWNCLIA [id number] [place] [address] [place] Anion gap [Moles/Vol] 8 mmol/L Low 9-18 [facility] Comment on above: Order Comment: Speci men Type: BLOOD SPECIMENOrdering Facility: [facility] Address: [address] [place] [address] Performed By: #### 2 4323-8 ####[facility] HOSPITALNCLIA [id number] [place] [address] [place] AST [Catalytic activity/Vol] 15 U/L Normal 13-35 [facility] Comment on above: Order Comment: Speci men Type: BLOOD SPECIMENOrdering Facility: [facility] Address: [address] [place] [address] Performed By: #### 2 4323-8 ####[facility]KAWNCLIA [id number] [place] [address] [place] Bilirubin [Mass/Vol] 0.4 mg/dL Normal 0.2-1.3 [facility] Comment on above: Order Comment: Speci men Type: BLOOD SPECIMENOrdering Facility: [facility] Address: [address] [place] [address] Performed By: #### 2 4323-8 ####[facility] HOSPITALNCLIA [id number] [place] [address] [place] Calcium [Mass/Vol] 9.1 mg/dL Normal 8.5-10.[address] [facility] Comment on above: Order Comment: Speci men Type: BLOOD SPECIMENOrdering Facility: [facility] Address: [address] [place] [address] Performed By: #### 2 4323-8 ####[facility]OPKAWNCLIA [id number] [place] [address] [place] Chloride [Moles/Vol] 102 mmol/L Normal 97-105 [facility] Comment on above: Order Comment: Speci men Type: BLOOD SPECIMENOrdering Facility: [facility] Address: [address] [place] [address] Performed By: #### 2 4323-8 ####[facility]ITALLIA [id number] [place] [address] [place] CO2 [Moles/Vol] 27 mmol/L Normal 22-30 [facility] Comment on above: Order Comment: Speci men Type: BLOOD SPECIMENOrdering Facility: [facility] Address: [address] [place] [address] Performed By: #### 2 4323-8 ####[facility] HOSPITALA [id number] [place] [address] [place] Creatinine [Mass/Vol] 0.59 mg/dL Normal 0.58-0.96 [facility] Comment on above: Order Comment: Speci men Type: BLOOD SPECIMENOrdering Facility: [facility] Address: [address] [place] [address] Performed By: #### 2 4323-8 ####[facility] HOSPITALNCLIA [id number] [place] [address] [place] Creatinine and Glomerular filtration rate.predicted panel (S/P/Bld) 89 mL/min/1.73m??? Normal >=60 [facility] Comment on above: Order Comment: Speci men Type: BLOOD SPECIMENOrdering Facility: [facility] Address: [address] [place] [address] Result Comment: Marlyn mated Glomerular Filtration Rate [...] Performed By: #### 2 4323-8 ####[facility] [id number] [place] [address] [place] Glucose [Mass/Vol] 96 mg/dL Normal 74-[address] [facility] Comment on above: Order Comment: Zay sandoval Type: BLOOD SPECIMENOrdering Facility: [facility] Address: [address] [place] [address] Result Comment: The [place] Diabetes [employer] (ADA) provides guidance for cutoff [...] Standards of Medical Care in Diabetes 2016, [place] [employer]. Diabetes Care. 2016.39(Suppl 1). Performed By: #### 2 4323-8 ####[facility]ITALLIA [id number] [place] [address] [place] Potassium [Moles/Vol] 4.1 mmol/L Normal 3.7-5.1 [facility] Comment on above: Order Comment: Zay sandoval Type: BLOOD SPECIMENOrdering Facility: [facility] Address: [address] [place] [address] Performed By: #### 2 4323-8 ####[facility] [id number] [place] [address] [place] Protein [Mass/Vol] 6.9 g/dL Normal 6.3-8.[address] [facility] Comment on above: Order Comment: Speci men Type: BLOOD SPECIMENOrdering Facility: [facility] Address: [address] [place] [address] Performed By: #### 2 4323-8 ####[facility] [id number] [place] [address] [place] Sodium [Moles/Vol] 137 mmol/L Normal 136-[address] [facility] Comment on above: Order Comment: Speci men Type: BLOOD SPECIMENOrdering Facility: [facility] Address: [address] [place] [address] Performed By: #### 2 4323-8 ####[facility] HOSPITALNCFARZANA [id number] [place] [address] [place] Urea nitrogen [Mass/Vol] 21 mg/dL Normal 7-21 [facility] Comment on above: Order Comment: Speci men Type: BLOOD SPECIMENOrdering Facility: [facility] Address: [address] [place] [address] Performed By: #### 2 4323-8 ####[facility] HOSPITALNCLI [id number] [place] [address] [place] CNPNon 06-07-2023 CNPN Normal [facility] CNPNon 06-04-2023 CNPN Normal [facility] CA 125 BLDon 06-02-2023 Cancer Ag 125 Qn 12 [arb'U]/mL <39 U/mL [facility] CBC W Auto Differential pane l (Bld)on 06-02-2023 Basophils (Bld) [#/Vol] 0.06 10*3/uL <0.11 k/uL [facility] Basophils/100 WBC (Bld) 1.3 % [facility] Differential cell count method Nom (Bld) Auto [facility] Eosinophils (Bld) [#/Vol] 0.16 10*3/uL <0.46 k/uL [facility] Eosinophils/100 WBC (Bld) 3.5 % [facility] Erythrocyte distribution width (RBC) [Ratio] 13.3 % 11.5 - 15.0 % [facility] Hematocrit (Bld) [Volume fraction] 39.7 % 36.0 - 46.0 % [facility] Hemoglobin (Bld) [Mass/Vol] 12.5 g/dL 11.5 - 15.5 g/dL [facility] Immature granulocytes (Bld) [#/Vol] <0.10 k/uL [facility] Immature granulocytes/100 WBC (Bld) 0.2 % [facility] Lymphocytes (Bld) [#/Vol] 1.77 10*3/uL 1.00 - 4.00 k/uL [facility] Lymphocytes/100 WBC (Bld) 38.3 % [facility] MCH (RBC) [Entitic mass] 30.9 pg 26.0 - 34.[address] [facility] MCHC (RBC) [Mass/Vol] 31.5 g/dL 30.5 - 36.0 g/dL [facility] MCV (RBC) [Entitic vol] 98.3 fL 80.0 - 100.[address] [facility] Monocytes (Bld) [#/Vol] 0.42 10*3/uL <0.87 k/uL [facility] Monocytes/100 WBC (Bld) 9.1 % [facility] Neutrophils (Bld) [#/Vol] 2.20 10*3/uL 1.45 - 7.50 k/uL [facility] Neutrophils/100 WBC (Bld) 47.6 % [facility] Nucleated RBC (Bld) [#/Vol] <0.01 k/uL [facility] Nucleated RBC/100 WBC (Bld) [Ratio] 0.0 /[address] [facility] Platelet mean volume (Bld) [Entitic vol] 9.4 fL 9.0 - 12.[address] [facility] Platelets (Bld) [#/Vol] 262 10*3/uL 150 - 400 k/uL [facility] RBC (Bld) [#/Vol] 4.04 10*6/uL 3.90 - 5.20 m/uL [facility] WBC (Bld) [#/Vol] 4.62 10*3/uL 3.70 - 11.00 k/uL [facility] Basophils (Bld) [#/Vol] 0.06 10*3/uL Normal <0.11 [facility] Comment on above: Order Comment: Speci men Type: BLOOD SPECIMENOrdering Facility: [facility] Address: [address] [place] [address] Performed By: #### 5 7021-8 ####[facility] MILLWNCLIA [id number] [place] [address] [place] Basophils/100 WBC (Bld) 1.3 % Normal [facility] Comment on above: Order Comment: Speci men Type: BLOOD SPECIMENOrdering Facility: [facility] Address: [address] [place] [address] Performed By: #### 5 7021-8 ####[facility] H[facility]PITALLIA [id number] [place] [address] [place] Differential cell count method Nom (Bld) Auto Normal [facility] Comment on above: Order Comment: Speci men Type: BLOOD SPECIMENOrdering Facility: [facility] Address: [address] [place] [address] Performed By: #### 5 7021-8 ####[facility] [id number] [place] [address] [place] Eosinophils (Bld) [#/Vol] 0.16 10*3/uL Normal <0.46 [facility] Comment on above: Order Comment: Speci men Type: BLOOD SPECIMENOrdering Facility: [facility] Address: [address] [place] [address] Performed By: #### 5 7021-8 ####[facility] [id number] [place] [address] [place] Eosinophils/100 WBC (Bld) 3.5 % Normal [facility] Comment on above: Order Comment: Speci men Type: BLOOD SPECIMENOrdering Facility: [facility] Address: [address] [place] [address] Performed By: #### 5 7021-8 ####[facility] [id number] [place] [address] [place] Erythrocyte distribution width (RBC) [Ratio] 13.3 % Normal 11.5-15.0 [facility] Comment on above: Order Comment: Speci men Type: BLOOD SPECIMENOrdering Facility: [facility] Address: [address] [place] [address] Performed By: #### 5 7021-8 ####[facility] [id number] [place] [address] [place] Hematocrit (Bld) [Volume fraction] 39.7 % Normal 36.0-46.0 [facility] Comment on above: Order Comment: Speci men Type: BLOOD SPECIMENOrdering Facility: [facility] Address: [address] [place] [address] Performed By: #### 5 7021-8 ####[facility] [id number] [place] [address] [place] Hemoglobin (Bld) [Mass/Vol] 12.5 g/dL Normal 11.5-15.5 [facility] Comment on above: Order Comment: Speci men Type: BLOOD SPECIMENOrdering Facility: [facility] Address: [address] [place] [address] Performed By: #### 5 7021-8 ####[facility] [id number] [place] [address] [place] Immature granulocytes (Bld) [#/Vol] 10*3/uL Normal <0.10 [facility] Comment on above: Order Comment: Speci men Type: BLOOD SPECIMENOrdering Facility: [facility] Address: [address] [place] [address] Performed By: #### 5 7021-8 ####[facility] MGWANYILIA [id number] [place] [address] [place] Immature granulocytes/100 WBC (Bld) 0.2 % Normal [facility] Comment on above: Order Comment: Speci men Type: BLOOD SPECIMENOrdering Facility: [facility] Address: [address] [place] [address] Performed By: #### 5 7021-8 ####[facility] [id number] [place] [address] [place] Lymphocytes (Bld) [#/Vol] 1.77 10*3/uL Normal 1.00-4.00 [facility] Comment on above: Order Comment: Speci men Type: BLOOD SPECIMENOrdering Facility: [facility] Address: [address] [place] [address] Performed By: #### 5 7021-8 ####[facility] [id number] [place] [address] [place] Lymphocytes/100 WBC (Bld) 38.3 % Normal [facility] Comment on above: Order Comment: Speci men Type: BLOOD SPECIMENOrdering Facility: [facility] Address: [address] [place] [address] Performed By: #### 5 7021-8 ####[facility] [id number] [place] [address] [place] MCH (RBC) [Entitic mass] 30.9 pg Normal 26.0-34.0 [facility] Comment on above: Order Comment: Speci men Type: BLOOD SPECIMENOrdering Facility: [facility] Address: [address] [place] [address] Performed By: #### 5 7021-8 ####[facility]ITALNCLI [id number] [place] [address] [place] MCHC (RBC) [Mass/Vol] 31.5 g/dL Normal 30.5-36.0 [facility] Comment on above: Order Comment: Speci men Type: BLOOD SPECIMENOrdering Facility: [facility] Address: [address] [place] [address] Performed By: #### 5 7021-8 ####[facility] [id number] [place] [address] [place] MCV (RBC) [Entitic vol] 98.3 fL Normal 80.0-100.0 [facility] Comment on above: Order Comment: Speci men Type: BLOOD SPECIMENOrdering Facility: [facility] Address: [address] [place] [address] Performed By: #### 5 7021-8 ####[facility] [id number] [place] [address] [place] Monocytes (Bld) [#/Vol] 0.42 10*3/uL Normal <0.87 [facility] Comment on above: Order Comment: Speci men Type: BLOOD SPECIMENOrdering Facility: [facility] Address: [address] [place] [address] Performed By: #### 5 7021-8 ####[facility] [id number] [place] [address] [place] Monocytes/100 WBC (Bld) 9.1 % Normal [facility] Comment on above: Order Comment: Speci men Type: BLOOD SPECIMENOrdering Facility: [facility] Address: [address] [place] [address] Performed By: #### 5 7021-8 ####[facility] [id number] [place] [address] [place] Neutrophils (Bld) [#/Vol] 2.20 10*3/uL Normal 1.45-7.50 [facility] Comment on above: Order Comment: Speci men Type: BLOOD SPECIMENOrdering Facility: [facility] Address: [address] [place] [address] Performed By: #### 5 7021-8 ####[facility] H[facility]ITALNCLIA [id number] [place] [address] [place] Neutrophils/100 WBC (Bld) 47.6 % Normal [facility] Comment on above: Order Comment: Speci men Type: BLOOD SPECIMENOrdering Facility: [facility] Address: [address] [place] [address] Performed By: #### 5 7021-8 ####[facility] [id number] [place] [address] [place] Nucleated RBC (Bld) [#/Vol] 10*3/uL Normal <0.01 [facility] Comment on above: Order Comment: Speci men Type: BLOOD SPECIMENOrdering Facility: [facility] Address: [address] [place] [address] Performed By: #### 5 7021-8 ####[facility] [id number] [place] [address] [place] Nucleated RBC/100 WBC (Bld) [Ratio] 0.0 /100 WBC Normal [facility] Comment on above: Order Comment: Speci men Type: BLOOD SPECIMENOrdering Facility: [facility] Address: [address] [place] [address] Performed By: #### 5 7021-8 ####[facility]ITALL[facility] [id number] [place] [address] [place] Platelet mean volume (Bld) [Entitic vol] 9.4 fL Normal 9.0-12.7 [facility] Comment on above: Order Comment: Speci men Type: BLOOD SPECIMENOrdering Facility: [facility] Address: [address] [place] [address] Performed By: #### 5 7021-8 ####[facility] H[facility]ITALL[facility] [id number] [place] [address] [place] Platelets (Bld) [#/Vol] 262 10*3/uL Normal 150-400 [facility] Comment on above: Order Comment: Speci men Type: BLOOD SPECIMENOrdering Facility: [facility] Address: [address] [place] [address] Performed By: #### 5 7021-8 ####[facility] HOSPITALANNIA [id number] [place] [address] [place] RBC (Bld) [#/Vol] 4.04 10*6/uL Normal 3.90-5.20 [facility] Comment on above: Order Comment: Speci men Type: BLOOD SPECIMENOrdering Facility: [facility] Address: [address] [place] [address] Performed By: #### 5 7021-8 ####[facility] HOSPITALDavid [id number] [place] [address] [place] WBC (Bld) [#/Vol] 4.62 10*3/uL Normal 3.70-11.00 [facility] Comment on above: Order Comment: Speci men Type: BLOOD SPECIMENOrdering Facility: [facility] Address: [address] [place] [address] Performed By: #### 5 7021-8 ####[facility]ITALNCLIA [id number] [place] [address] [place] CNOVSPon 06-02-2023 CNOVSP Normal [facility] CNPNon 06-02-2023 CNPN Normal [facility] Cancer Ag125 SerPl-aCncon Cancer Ag 125 Qn 12 [arb'U]/mL Normal <39 [facility] Comment on above: Order Comment: Speci men Type: BLOOD SPECIMENOrdering Facility: [facility] Address: [address] [place] [address] Result Comment: CA 1 25 test methodology [...] (CA 125 II) [package insert V 1.0 [place]]. [employer], [place], [place] (May 2015) Performed By: #### 1 0334-1 ####[facility] LABCLIA [id number] [place] [address] [place] Comprehensive metabolic 2000 panelon 06-02-2023 Albumin [Mass/Vol] 4.3 g/dL 3.9 - 4.9 g/dL [facility] ALP [Catalytic activity/Vol] 87 U/L 34 - 123 U/L [facility] ALT [Catalytic activity/Vol] 9 U/L 7 - 38 U/L [facility] Anion gap [Moles/Vol] 11 mmol/L 9 - 18 mmol/L [facility] AST [Catalytic activity/Vol] 15 U/L 13 - 35 U/L [facility] Bilirubin [Mass/Vol] 0.2 mg/dL 0.2 - 1 .3 mg/dL [facility] Calcium [Mass/Vol] 9.4 mg/dL 8.5 - 10. 2 mg/dL [facility] Chloride [Moles/Vol] 101 mmol/L 97 - 10 5 mmol/L [facility] CO2 [Moles/Vol] 26 mmol/L 22 - 30 mmol/L [facility] Creatinine [Mass/Vol] 0.66 mg/dL 0.58 - 0.96 mg/dL [facility] Estimated Glomerular Filtration Rate 87 mL/min/1.73m >=60 mL/min/1.[address] [facility] Glucose [Mass/Vol] 116 mg/dL High 74 - 99 mg/dL [facility] Potassium [Moles/Vol] 4.1 mmol/L 3.7 - 5.1 mmol/L [facility] Protein [Mass/Vol] 7.3 g/dL 6.3 - 8.0 g/dL [facility] Sodium [Moles/Vol] 138 mmol/L 136 - 144 mmol/L [facility] Urea nitrogen [Mass/Vol] 17 mg/dL 7 - 21 mg/dL [facility] Albumin [Mass/Vol] 4.3 g/dL Normal 3.9-4.[address] [facility] Comment on above: Order Comment: Speci men Type: BLOOD SPECIMENOrdering Facility: [facility] Address: [address] [place] [address] Performed By: #### 1 9123-9, 71328-1 ####[facility] MILLTOWNCLIA [id number] [place] [address] [place] ALP [Catalytic activity/Vol] 87 U/L Normal 34-123 [facility] Comment on above: Order Comment: Speci men Type: BLOOD SPECIMENOrdering Facility: [facility] Address: [address] [place] [address] Performed By: #### 1 9123-9, 60785-7 ####[facility]ITALL[facility] [id number] [place] [address] [place] ALT [Catalytic activity/Vol] 9 U/L Normal 7-38 [facility] Comment on above: Order Comment: Speci men Type: BLOOD SPECIMENOrdering Facility: [facility] Address: [address] [place] [address] Performed By: #### 1 9123-9, 11963-6 ####[facility]ITALL[facility] [id number] [place] [address] [place] Anion gap [Moles/Vol] 11 mmol/L Normal 9-18 [facility] Comment on above: Order Comment: Speci men Type: BLOOD SPECIMENOrdering Facility: [facility] Address: [address] [place] [address] Performed By: #### 1 9123-9, 94931-4 ####[facility] [id number] [place] [address] [place] AST [Catalytic activity/Vol] 15 U/L Normal 13-35 [facility] Comment on above: Order Comment: Speci men Type: BLOOD SPECIMENOrdering Facility: [facility] Address: [address] [place] [address] Performed By: #### 1 9123-9, 92323-0 ####[facility]ITALNCLIA [id number] [place] [address] [place] Bilirubin [Mass/Vol] 0.2 mg/dL Normal 0.2-1.3 [facility] Comment on above: Order Comment: Speci men Type: BLOOD SPECIMENOrdering Facility: [facility] Address: [address] [place] [address] Performed By: #### 1 9123-9, 88638-9 ####[facility] [id number] [place] [address] [place] Calcium [Mass/Vol] 9.4 mg/dL Normal 8.5-10.[address] [facility] Comment on above: Order Comment: Speci men Type: BLOOD SPECIMENOrdering Facility: [facility] Address: [address] [place] [address] Performed By: #### 1 9123-9, 55069-4 ####[facility] HOSPITALNCA [id number] [place] [address] [place] Chloride [Moles/Vol] 101 mmol/L Normal 97-105 [facility] Comment on above: Order Comment: Speci men Type: BLOOD SPECIMENOrdering Facility: [facility] Address: [address] [place] [address] Performed By: #### 1 9123-9, 04249-5 ####[facility]ITALNCLIA [id number] [place] [address] [place] CO2 [Moles/Vol] 26 mmol/L Normal 22-30 [facility] Comment on above: Order Comment: Speci men Type: BLOOD SPECIMENOrdering Facility: [facility] Address: [address] [place] [address] Performed By: #### 1 9123-9, 32822-1 ####[facility] [id number] [place] [address] [place] Creatinine [Mass/Vol] 0.66 mg/dL Normal 0.58-0.96 [facility] Comment on above: Order Comment: Speci men Type: BLOOD SPECIMENOrdering Facility: [facility] Address: [address] [place] [address] Performed By: #### 1 9123-9, 67817-9 ####[facility] H[facility]PITALNCLI [id number] [place] [address] [place] Creatinine and Glomerular filtration rate.predicted panel (S/P/Bld) 87 mL/min/1.73m??? Normal >=60 [facility] Comment on above: Order Comment: Speci men Type: BLOOD SPECIMENOrdering Facility: [facility] Address: [address] [place] [address] Result Comment: Marlyn mated Glomerular Filtration Rate [...] actual GFR. Performed By: #### 1 9123-9, 66564-7 ####[facility] HOSPITALLIA [id number] [place] [address] [place] Glucose [Mass/Vol] 116 mg/dL High 74-[address] [facility] Comment on above: Order Comment: Speci men Type: BLOOD SPECIMENOrdering Facility: [facility] Address: [address] [place] [address] Result Comment: The [place] Diabetes [employer] (ADA) provides guidance for cutoff [...] Standards of Medical Care in Diabetes 2016, [place] [employer]. Diabetes Care. 2016.39(Suppl 1). Performed By: #### 1 9123-9, 25915-7 ####[facility] MILLTOWNCLIA [id number] [place] [address] [place] Potassium [Moles/Vol] 4.1 mmol/L Normal 3.7-5.1 [facility] Comment on above: Order Comment: Speci men Type: BLOOD SPECIMENOrdering Facility: [facility] Address: [address] [place] [address] Performed By: #### 1 9123-9, ####[facility] MILLJUANWANYILIA [id number] [place] [address] [place] Protein [Mass/Vol] 7.3 g/dL Normal 6.3-8.[address] [facility] Comment on above: Order Comment: Speci men Type: BLOOD SPECIMENOrdering Facility: [facility] Address: [address] [place] [address] Performed By: #### 1 91239, ####[facility] MILLTOWNCLIA [id number] [place] [address] [place] Sodium [Moles/Vol] 138 mmol/L Normal 136-[address] [facility] Comment on above: Order Comment: Speci men Type: BLOOD SPECIMENOrdering Facility: [facility] Address: [address] [place] [address] Performed By: #### 1 9123-9, ####[facility] [id number] [place] [address] [place] Urea nitrogen [Mass/Vol] 17 mg/dL Normal 7-21 [facility] Comment on above: Order Comment: Speci men Type: BLOOD SPECIMENOrdering Facility: [facility] Address: [address] [place] [address] Performed By: #### 1 9123-9, 12730-0 ####[facility] [id number] [place] [address] [place] HBV core Ab Ser Qlon 023 HBV core Ab Ql (S) Negative Normal Negative [facility] Comment on above: Order Comment: Speci men Type: BLOOD SPECIMENOrdering Facility: [facility] Address: [address] [place] [address] Result Comment: No e vidence of current or past infection with Hepatitis B virus. Should recent infection be suspected, repeat testing may be considered 3-4 weeks after this draw. Performed By: #### 5 195-3, 63154-3, 47345-8 ####[facility] LABCLIA [id number] [address] [place] HBV surface Ab Ql (S)on 05-10 HBV surface Ab Qn (S) <8.00 Normal [facility] Comment on above: Order Comment: Speci men Type: BLOOD SPECIMENOrdering Facility: [facility] Address: [address] [place] [address] Result Comment: <8 m IU/mL: No serological evidence of immunity to Hepatitis B Virus.>/= 8 to <12 mIU/mL: No serological evidence of immunity to Hepatitis B Virus.>/= 12 mIU/mL: Consistent with serological evidence of immunity to Hepatitis B Virus. Performed By: #### 5 195-3, 22922-8, 96086-4 ####[facility] LABCLIA [id number] [place] [address] [place] HBV surface Ab Ser Qlon 05-10 HBV surface Ab Ql (S) Negative Normal [facility] Comment on above: Order Comment: Speci men Type: BLOOD SPECIMENOrdering Facility: [facility] Address: [address] [place] [address] Result Comment: No s erological evidence of immunity to Hepatitis B Virus. Performed By: #### 5 195-3, 20922-4, 22411-5 ####[facility] LABCLIA [id number] [place] [address] [place] HBV surface Ag Ser Qlon 05-10 HBV surface Ag Ql (S) Negative Normal Negative [facility] Comment on above: Order Comment: Speci men Type: BLOOD SPECIMENOrdering Facility: [facility] Address: [address] [place] [address] Performed By: #### 5 195-3, 51673-7, 84377-7 ####[facility] LABCLIA [id number] [place] [address] [place] HCV Ab Ser Qlon 06-02-2023 HCV Ab Ql (S) Negative Normal Negative [facility] Comment on above: Order Comment: Speci men Type: BLOOD SPECIMENOrdering Facility: [facility] Address: [address] [place] [address] Result Comment: The result suggests no evidence of active infection with Hepatitis C virus. Should recent infection be suspected, repeat testing may be considered 4-6 weeks after this draw. Performed By: #### 1 6128-1 ####[facility] LABCLIA [id number] [place] [address] [place] MAGNESIUM BLDon 06-02-2023 Magnesium [Mass/Vol] 2.1 mg/dL 1.7 - 2 .3 mg/dL [facility] Magnesium SerPl-mCncon 06-02 Magnesium [Mass/Vol] 2.1 mg/dL Normal 1.7-2.3 [facility] Comment on above: Order Comment: Speci men Type: BLOOD SPECIMENOrdering Facility: [facility] Address: [place] [address] Performed By: #### 1 9123-9, 00743-4 ####[facility] PAULINE HOLLIDAYLOGANSPORT MEMORIAL HOSPITALFARZANA [id number] [place] [address] [place] CNOVon 05-17-2023 CNOV Normal [facility] CNPNon 05-13-2023 CNPN Normal [facility] CNPNon 05-11-2023 CNPN Normal [facility] CNOVSPon 05-03-2023 CNOVSP Visit (SP) Office (G YNML) ----- STEFANO WASHINGTON ([id number]) 1940 F Date Time Provider Department 05/03/23 4:45 PM ELIOT CASTILLO GYN During your visit today, we recorded the following information about you: Temperature Pulse Blood pressure Weight 97.5 degrees 93/minute 144/66 72.9 kg Eliot Castillo MD 05/04/2023 4:46 AM Signed Gynecologic Oncology [facility] Postop Re: Stefano Washington [facility]#: [id number] Date of Service: 05/03/2023 Dr. Jacky Graves [...] fibroadipose tissue. (more content not included)... Normal [facility] 05-03-[address] [facility] Normal [facility] 04-21-[address] [facility] Telephone ([facility]) ----- STEFANO WASHINGTON ([id number]) 1940 F Date Time Provider Department 04/21/23 ANNMARIE MENDOZA [facility] During your visit today, we recorded the following information about you: Annmarie Mendoza APRN.ASSISTANT ENGINEER 04/21/2023 4:19 PM Signed [facility] facility calling to report some redness mainly [...] currently scheduled with on 05/03. Annmarie Mendoza APRN.ASSISTANT ENGINEER Allergies As of Date: 04/21/2023 Noted Allergy [...] BMI 30-34.9 [E66.9] 04/10/2023 Encounter Status:Closed by ANNMRAIE MENDOZA on 04/21/23 Normal [facility] CASE MANAGEMon 04-14-2023 CASE MANAGEM Normal [facility] CASE MANAGEM Normal [facility] CBC panel Auto (Bld)on 04-14 Erythrocyte distribution width (RBC) [Ratio] 13.2 % Normal 11.5-15.0 [facility] Comment on above: Order Comment: Speci men Type: BLOOD SPECIMENOrdering Facility: [facility] Address: [address] [place] [address] Performed By: #### 5 8410-2 ####[facility] LABCLIA [id number] [place] [address] [place] Hematocrit (Bld) [Volume fraction] 34.2 % Low 36.0-46.0 [facility] Comment on above: Order Comment: Speci men Type: BLOOD SPECIMENOrdering Facility: [facility] Address: [address] [place] [address] Performed By: #### 5 8410-2 ####[facility] LABCLIA [id number] [place] [address] [place] Hemoglobin (Bld) [Mass/Vol] 10.9 g/dL Low 11.5-15.5 [facility] Comment on above: Order Comment: Speci men Type: BLOOD SPECIMENOrdering Facility: [facility] Address: [address] [place] [address] Performed By: #### 5 8410-2 ####[facility] LABCLIA [id number] [place] [address] [place] MCH (RBC) [Entitic mass] 32.1 pg Normal 26.0-34.0 [facility] Comment on above: Order Comment: Speci men Type: BLOOD SPECIMENOrdering Facility: [facility] Address: [address] [place] [address] Performed By: #### 5 8410-2 ####[place] [id number] [address] [place] MCHC (RBC) [Mass/Vol] 31.9 g/dL Normal 30.5-36.0 [facility] Comment on above: Order Comment: Speci men Type: BLOOD SPECIMENOrdering Facility: [facility] Address: [address] [place] [address] Performed By: #### 5 8410-2 ####[place] [id number] [address] [place] MCV (RBC) [Entitic vol] 100.6 fL High 80.0-100.0 [facility] Comment on above: Order Comment: Speci men Type: BLOOD SPECIMENOrdering Facility: [facility] Address: [address] [place] [address] Performed By: #### 5 8410-2 ####[place] [id number] [place] [address] [place] Nucleated RBC (Bld) [#/Vol] 10*3/uL Normal <0.01 [facility] Comment on above: Order Comment: Speci men Type: BLOOD SPECIMENOrdering Facility: [facility] Address: [address] [place], [place] [address] Performed By: #### 5 8410-2 ####[place] [id number] [address] [place] Platelet mean volume (Bld) [Entitic vol] 9.8 fL Normal 9.0-12.7 [facility] Comment on above: Order Comment: Speci men Type: BLOOD SPECIMENOrdering Facility: [facility] Address: [address] [place], [place] [address] Performed By: #### 5 8410-2 ####[facility] LABCLIA [id number] [place] [address] [place] Platelets (Bld) [#/Vol] 315 10*3/uL Normal 150-400 [facility] Comment on above: Order Comment: Speci men Type: BLOOD SPECIMENOrdering Facility: [facility] Address: [address] Performed By: #### 5 8410-2 ####[facility] LABCLIA [id number] [place] [address] [place] RBC (Bld) [#/Vol] 3.40 10*6/uL Low 3.90-5.20 [facility] Comment on above: Order Comment: Speci men Type: BLOOD SPECIMENOrdering Facility: [facility] Address: [address] [place], [place] [address] Performed By: #### 5 8410-2 ####[facility] LABCLIA [id number] [place] [address] [place] WBC (Bld) [#/Vol] 5.40 10*3/uL Normal 3.70-11.00 [facility] Comment on above: Order Comment: Speci men Type: BLOOD SPECIMENOrdering Facility: [facility] Address: [address] [place], [place] [id number] Performed By: #### 5 8410-2 ####[facility] LABCLIA [id number] [place] [address] [place] CNDSon 04-14-2023 CNDS Normal [facility] Comprehensive metabolic 2000 panelon 04-14-2023 Albumin [Mass/Vol] 3.1 g/dL Low 3.9-4.[address] [facility] Comment on above: Order Comment: Speci men Type: BLOOD SPECIMENOrdering Facility: [facility] Address: [address] [place], [place] [address] Performed By: #### 1 9123-9, 27702-06, 42503-2 ####[facility] LABCLIA [id number] [place] [address] [place] ALP [Catalytic activity/Vol] 63 U/L Normal 34-123 [facility] Comment on above: Order Comment: Speci men Type: BLOOD SPECIMENOrdering Facility: [facility] Address: [address] [place], [place] [address] Performed By: #### 1 9123-9, 27702-06, ####[facility] LABCLIA [id number] [place] [address] [place] ALT [Catalytic activity/Vol] 22 U/L Normal 7-38 [facility] Comment on above: Order Comment: Speci men Type: BLOOD SPECIMENOrdering Facility: [facility] Address: [address] [place], [place] [address] Performed By: #### 1 9123-9, 2776-08, ####[facility] LABCLIA [id number] [place] [address] [place] Anion gap [Moles/Vol] 12 mmol/L Normal 9-18 [facility] Comment on above: Order Comment: Speci men Type: BLOOD SPECIMENOrdering Facility: [facility] Address: [address] [place] [address] Performed By: #### 1 9123-9, 27702-06, 62282-1 ####[facility] LABCLIA [id number] [place] [address] [place] AST [Catalytic activity/Vol] 31 U/L Normal 13-35 [facility] Comment on above: Order Comment: Speci men Type: BLOOD SPECIMENOrdering Facility: [facility] Address: [address] [place] [address] Performed By: #### 1 9123-9, 27702-06, 74739-5 ####[facility] LABCLIA [id number] [place] [address] [place] Bilirubin [Mass/Vol] 0.4 mg/dL Normal 0.2-1.3 [facility] Comment on above: Order Comment: Speci men Type: BLOOD SPECIMENOrdering Facility: [facility] Address: [address] Performed By: #### 1 9123-9, 2777, ####[facility] LABCLIA [id number] [place] [address] [place] Calcium [Mass/Vol] 8.6 mg/dL Normal 8.5-10.[address] [facility] Comment on above: Order Comment: Speci men Type: BLOOD SPECIMENOrdering Facility: [facility] Address: [address] [place], [place] [address] Performed By: #### 1 9123-9, 2776-08, ####[facility] LABCLIA [id number] [place] [address] [place] Chloride [Moles/Vol] 103 mmol/L Normal 97-105 [facility] Comment on above: Order Comment: Speci men Type: BLOOD SPECIMENOrdering Facility: [facility] Address: [address] [place] [address] Performed By: #### 1 9123-9, 27702-06, 72654-9 ####[facility] LABCLIA [id number] [place] [address] [place] CO2 [Moles/Vol] 22 mmol/L Normal 22-30 [facility] Comment on above: Order Comment: Speci men Type: BLOOD SPECIMENOrdering Facility: [facility] Address: [address] [place] [id number] Performed By: #### 1 9123-9, 2777-, 48303-3 ####[facility] LABIA [id number] [place] [address] [place] Creatinine [Mass/Vol] 0.55 mg/dL Low 0.58-0.96 [facility] Comment on above: Order Comment: Speclisbeth men Type: BLOOD SPECIMENOrdering Facility: [facility] Address: [address] [address] Performed By: #### 1 9123-9, 2777-, 54366-8 ####[facility] LABIA [id number] [address] [place] Creatinine and Glomerular filtration rate.predicted panel (S/P/Bld) 91 mL/min/1.73m??? Normal >=60 [facility] Comment on above: Order Comment: Zay sandoval Type: BLOOD SPECIMENOrdering Facility: [facility] Address: [address] [place] [address] Result Comment: Marlyn mated Glomerular Filtration Rate [...] GFR. Performed By: #### 1 9123-9, 2777-, 92745-8 ####[facility] LABIA [id number] [place] [address] [place] Glucose [Mass/Vol] 106 mg/dL High 74-[address] [facility] Comment on above: Order Comment: Zay men Type: BLOOD SPECIMENOrdering Facility: [facility] Address: [address] [address] Result Comment: The [place] [employer] (ADA) provides guidance for cutoff [...] Standards of Medical Care in Diabetes 2016, [place] [employer]. Diabetes Care. 2016.39(Suppl 1). Performed By: #### 1 9123-9, 2777, 10705-5 ####[facility] LABIA [id number] [place] [address] [place] Potassium [Moles/Vol] 3.7 mmol/L Normal 3.7-5.1 [facility] Comment on above: Order Comment: Speci men Type: BLOOD SPECIMENOrdering Facility: [facility] Address: [address] [address] Performed By: #### 1 9123-9, 2776-08, ####[facility] [id number] [place] [address] [place] Protein [Mass/Vol] 5.9 g/dL Low 6.3-8.[address] [facility] Comment on above: Order Comment: Speci men Type: BLOOD SPECIMENOrdering Facility: [facility] Address: [address] [place] [address] Performed By: #### 1 9123-9, 27702-06, 76081-8 ####[facility] LABIA [id number] [place] [address] [place] Sodium [Moles/Vol] 137 mmol/L Normal 136-[address] [facility] Comment on above: Order Comment: Speci men Type: BLOOD SPECIMENOrdering Facility: [facility] Address: [address] [place] [address] Performed By: #### 1 9123-9, 2777, 39620-4 ####[facility] LABCLIA [id number] [place] [address] [place] Urea nitrogen [Mass/Vol] 12 mg/dL Normal 7-21 [facility] Comment on above: Order Comment: Speci men Type: BLOOD SPECIMENOrdering Facility: [facility] Address: [address] [place] [address] Performed By: #### 1 9123-9, 27702-06, ####[facility] LABCLIA [id number] [place] [address] [place] ECG COMPLETEon 04-14-2023 ECG COMPLETE Normal [facility] HIGH SENSITIVITY TROPONIN To n 04-14-2023 Troponin T.cardiac High sensitivity method [Mass/Vol] 13 ng/L High <12 [facility] Comment on above: Order Comment: Speci men Type: BLOOD SPECIMENOrdering Facility: [facility] Address: [address] [place] [address] Result Comment: When assessing risk for acute [...] day MACE. Performed By: #### H STNT ####[facility] LABCLIA [id number] [place] [address] [place] Magnesium SerPl-mCncon 04-14 Magnesium [Mass/Vol] 1.9 mg/dL Normal 1.7-2.3 [facility] Comment on above: Order Comment: Speci men Type: BLOOD SPECIMENOrdering Facility: [facility] Address: [address] [place] [address] Performed By: #### 1 9123-9, 277-, 11742-4 ####[facility] LABCLIA [id number] [place] [address] [place] NURSING PROGon 04-14-2023 NURSING PROG Normal [facility] NUTRITIONon 04-14-2023 NUTRITION Normal [facility] Phosphate SerPl-mCncon 04-14 Phosphate [Mass/Vol] 3.9 mg/dL Normal 2.7-4.8 [facility] Comment on above: Order Comment: Speci men Type: BLOOD SPECIMENOrdering Facility: [facility] Address: [address] [place] [address] Performed By: #### 1 9123-9, 2777-1, 71683-6 ####[facility] [id number] [address] [place] CASE MANAGEMon 04-13-2023 CASE MANAGEM Normal [facility] CASE MANAGEM Normal [facility] CBC panel Auto (Bld)on 04-13 Erythrocyte distribution width (RBC) [Ratio] 13.2 % Normal 11.5-15.0 [facility] Comment on above: Order Comment: Speci men Type: BLOOD SPECIMENOrdering Facility: [facility] Address: [address] [place] [address] Performed By: #### 5 8410-2 ####[facility] [id number] [place] [address] [place] Hematocrit (Bld) [Volume fraction] 35.6 % Low 36.0-46.0 [facility] Comment on above: Order Comment: Speci men Type: BLOOD SPECIMENOrdering Facility: [facility] Address: [address] [place] [address] Performed By: #### 5 8410-2 ####[facility] LABIA [id number] [place] [address] [place] Hemoglobin (Bld) [Mass/Vol] 11.2 g/dL Low 11.5-15.5 [facility] Comment on above: Order Comment: Speci men Type: BLOOD SPECIMENOrdering Facility: [facility] Address: [address] [place] [address] Performed By: #### 5 8410-2 ####[facility] LABIA [id number] [address] STATES OF [facility] MCH (RBC) [Entitic mass] 32.0 pg Normal 26.0-34.0 [facility] Comment on above: Order Comment: Speci men Type: BLOOD SPECIMENOrdering Facility: [facility] Address: [address] [place] [address] Performed By: #### 5 8410-2 ####[facility] LABIA [id number] [address] [place] MCHC (RBC) [Mass/Vol] 31.5 g/dL Normal 30.5-36.0 [facility] Comment on above: Order Comment: Speci men Type: BLOOD SPECIMENOrdering Facility: [facility] Address: [address] Performed By: #### 5 8410-2 ####[facility] LABIA [id number] [address] [place] MCV (RBC) [Entitic vol] 101.7 fL High 80.0-100.0 [facility] Comment on above: Order Comment: Speci men Type: BLOOD SPECIMENOrdering Facility: [facility] Address: [address] Performed By: #### 5 8410-2 ####[facility] [id number] [place] [address] [place] Nucleated RBC (Bld) [#/Vol] 10*3/uL Normal <0.01 [facility] Comment on above: Order Comment: Speci men Type: BLOOD SPECIMENOrdering Facility: [facility] Address: [address] Performed By: #### 5 8410-2 ####[facility] LABIA [id number] [place] [address] [place] Platelet mean volume (Bld) [Entitic vol] 10.4 fL Normal 9.0-12.7 [facility] Comment on above: Order Comment: Speci men Type: BLOOD SPECIMENOrdering Facility: [facility] Address: [address] [place], [place] [address] Performed By: #### 5 8410-2 ####[facility] LABIA [id number] [place] [address] [place] Platelets (Bld) [#/Vol] 327 10*3/uL Normal 150-400 [facility] Comment on above: Order Comment: Speci men Type: BLOOD SPECIMENOrdering Facility: [facility] Address: [address] [place], [place] [address] Performed By: #### 5 8410-2 ####[facility] LABIA [id number] [place] [address] [place] RBC (Bld) [#/Vol] 3.50 10*6/uL Low 3.90-5.20 [facility] Comment on above: Order Comment: Speci men Type: BLOOD SPECIMENOrdering Facility: [facility] Address: [address] [place], [place] [address] Performed By: #### 5 8410-2 ####[facility] LABIA [id number] [place] [address] [place] WBC (Bld) [#/Vol] 6.06 10*3/uL Normal 3.70-11.00 [facility] Comment on above: Order Comment: Speci men Type: BLOOD SPECIMENOrdering Facility: [facility] Address: [address] [place], [place] [address] Performed By: #### 5 8410-2 ####[facility] LABIA [id number] [place] [address] [place] Comprehensive metabolic 2000 panelon 04-13-2023 Albumin [Mass/Vol] 3.5 g/dL Low 3.9-4.[address] [facility] Comment on above: Order Comment: Speci men Type: BLOOD SPECIMENOrdering Facility: [facility] Address: [address] [place] [address] Performed By: #### 2 4323-8, 26274-2, 2776- ####[facility] LABCLIA [id number] [place] [address] [place] ALP [Catalytic activity/Vol] 63 U/L Normal 34-123 [facility] Comment on above: Order Comment: Speci men Type: BLOOD SPECIMENOrdering Facility: [facility] Address: [address] [place] [address] Performed By: #### 2 4323-8, , 2776- ####[facility] LABCLIA [id number] [address] [place] ALT [Catalytic activity/Vol] 14 U/L Normal 7-38 [facility] Comment on above: Order Comment: Speci men Type: BLOOD SPECIMENOrdering Facility: [facility] Address: [address] [place] [address] Performed By: #### 2 4323-8, , 2776- ####[facility] LABCLIA [id number] [place] [address] [place] Anion gap [Moles/Vol] 11 mmol/L Normal 9-18 [facility] Comment on above: Order Comment: Speci men Type: BLOOD SPECIMENOrdering Facility: [facility] Address: [address] [place], [place] [address] Performed By: #### 2 4323-8, 94059-4, 2776- ####[facility] LABCLIA [id number] [place] [address] [place] AST [Catalytic activity/Vol] 23 U/L Normal 13-35 [facility] Comment on above: Order Comment: Speci men Type: BLOOD SPECIMENOrdering Facility: [facility] Address: [address] [place] [address] Performed By: #### 2 4323-8, 91178-9, 2776-08 ####[facility] LABCLIA [id number] [place] [address] [place] Bilirubin [Mass/Vol] 0.6 mg/dL Normal 0.2-1.3 [facility] Comment on above: Order Comment: Speci men Type: BLOOD SPECIMENOrdering Facility: [facility] Address: [address] [place] [address] Performed By: #### 2 4323-8, , 2776-08 ####[facility] LABCLIA [id number] [place] [address] [place] Calcium [Mass/Vol] 8.9 mg/dL Normal 8.5-10.[address] [facility] Comment on above: Order Comment: Speci men Type: BLOOD SPECIMENOrdering Facility: [facility] Address: [address] [place], [place] [address] Performed By: #### 2 4323-8, , 2776-08 ####[facility] LABCLIA [id number] [place] [address] [place] Chloride [Moles/Vol] 103 mmol/L Normal 97-105 [facility] Comment on above: Order Comment: Speci men Type: BLOOD SPECIMENOrdering Facility: [facility] Address: [address] [place], [place] [address] Performed By: #### 2 4323-8, 40905-8, 2776-08 ####[facility] LABCLIA [id number] [place] [address] [place] CO2 [Moles/Vol] 26 mmol/L Normal 22-30 [facility] Comment on above: Order Comment: Speci men Type: BLOOD SPECIMENOrdering Facility: [facility] Address: [address] [place] [address] Performed By: #### 2 4323-8, , 2776-08 ####[facility] LABCLIA [id number] [place] [address] [place] Creatinine [Mass/Vol] 0.64 mg/dL Normal 0.58-0.96 [facility] Comment on above: Order Comment: Speci men Type: BLOOD SPECIMENOrdering Facility: [facility] Address: [address] [place] [address] Performed By: #### 2 4323-8, , 2776-08 ####[facility] LABCLIA [id number] [place] [address] [place] Creatinine and Glomerular filtration rate.predicted panel (S/P/Bld) 87 mL/min/1.73m??? Normal >=60 [facility] Comment on above: Order Comment: Zay sandoval Type: BLOOD SPECIMENOrdering Facility: [facility] Address: [address] [place] [address] Result Comment: Marlyn mated Glomerular Filtration Rate [...] Performed By: #### 2 4323-8, , 2776-08 ####[facility] LABCLIA [id number] [place] [address] [place] Glucose [Mass/Vol] 93 mg/dL Normal 74-[address] [facility] Comment on above: Order Comment: Pratibhai men Type: BLOOD SPECIMENOrdering Facility: [facility] Address: [address] [id number] Result Comment: The [place] [employer] (ADA) provides guidance for cutoff [...] Standards of Medical Care in Diabetes 2016, [place] [employer]. Diabetes Care. 2016.39(Suppl 1). Performed By: #### 2 4323-8, , 2776-08 ####[facility] LABCLIA [id number] [place] [address] [place] Potassium [Moles/Vol] 4.1 mmol/L Normal 3.7-5.1 [facility] Comment on above: Order Comment: Speci men Type: BLOOD SPECIMENOrdering Facility: [facility] Address: [address] [place] [id number] Performed By: #### 2 4323-8, , 2776-08 ####[facility] LABCLIA [id number] [place] [address] [place] Protein [Mass/Vol] 6.4 g/dL Normal 6.3-8.[address] [facility] Comment on above: Order Comment: Speci men Type: BLOOD SPECIMENOrdering Facility: [facility] Address: [address] [place] [id number] Performed By: #### 2 4323-8, , 2776-08 ####[facility] LABCLIA [id number] [place] [address] [place] Sodium [Moles/Vol] 140 mmol/L Normal 136-[address] [facility] Comment on above: Order Comment: Speci men Type: BLOOD SPECIMENOrdering Facility: [facility] Address: [address] [place] [address] Performed By: #### 2 4323-8, , 2776-08 ####[facility] LABCLIA [id number] [place] [address] [place] Urea nitrogen [Mass/Vol] 10 mg/dL Normal 7-21 [facility] Comment on above: Order Comment: Speci men Type: BLOOD SPECIMENOrdering Facility: [facility] Address: [address] [place], [place] [address] Performed By: #### 2 4323-8, , 2776-08 ####[facility] LABCLIA [id number] [place] [address] [place] Magnesium SerPl-ncon 04-13 Magnesium [Mass/Vol] 2.0 mg/dL Normal 1.7-2.3 [facility] Comment on above: Order Comment: Speci men Type: BLOOD SPECIMENOrdering Facility: [facility] Address: [address] [place] [address] Performed By: #### 2 4323-8, , 2776-08 ####[facility] LABCLIA [id number] [place] [address] [place] Phosphate SerPl-mCncon 04-13 Phosphate [Mass/Vol] 3.5 mg/dL Normal 2.7-4.8 [facility] Comment on above: Order Comment: Speci men Type: BLOOD SPECIMENOrdering Facility: [facility] Address: [address] [place], [place] [address] Performed By: #### 2 4323-8, , 2776-08 ####[facility] LABCLIA [id number] [place] [address] [place] THERAPY NTon 04-13-2023 THERAPY NT Normal [facility] CBC panel Auto (Bld)on 04-12 Erythrocyte distribution width (RBC) [Ratio] 13.2 % Normal 11.5-15.0 [facility] Comment on above: Order Comment: Speci men Type: BLOOD SPECIMENOrdering Facility: [facility] Address: [address] [place] [address] Performed By: #### 5 8410-2 ####[facility] LABIA [id number] [address] [facility] Hematocrit (Bld) [Volume fraction] 33.4 % Low 36.0-46.0 [facility] Comment on above: Order Comment: Speci men Type: BLOOD SPECIMENOrdering Facility: [facility] Address: [address] [place] [address] Performed By: #### 5 8410-2 ####[facility] LABIA [id number] [address] [facility] Hemoglobin (Bld) [Mass/Vol] 10.8 g/dL Low 11.5-15.5 [facility] Comment on above: Order Comment: Speci men Type: BLOOD SPECIMENOrdering Facility: [facility] Address: [address] [place] [address] Performed By: #### 5 8410-2 ####[facility] LABIA [id number] [place] [address] [place] MCH (RBC) [Entitic mass] 32.8 pg Normal 26.0-34.0 [facility] Comment on above: Order Comment: Speci men Type: BLOOD SPECIMENOrdering Facility: [facility] Address: [address] [place] [address] Performed By: #### 5 8410-2 ####[facility] LABIA [id number] [address] [place] MCHC (RBC) [Mass/Vol] 32.3 g/dL Normal 30.5-36.0 [facility] Comment on above: Order Comment: Speci men Type: BLOOD SPECIMENOrdering Facility: [facility] Address: [address] Performed By: #### 5 8410-2 ####[facility] LABIA [id number] [place] [address] [place] MCV (RBC) [Entitic vol] 101.5 fL High 80.0-100.0 [facility] Comment on above: Order Comment: Speci men Type: BLOOD SPECIMENOrdering Facility: [facility] Address: [address] Performed By: #### 5 8410-2 ####[facility] [id number] [address] [place] Nucleated RBC (Bld) [#/Vol] 10*3/uL Normal <0.01 [facility] Comment on above: Order Comment: Speci men Type: BLOOD SPECIMENOrdering Facility: [facility] Address: [address] [place], [place] [address] Performed By: #### 5 8410-2 ####[place] [id number] [place] [address] [place] Platelet mean volume (Bld) [Entitic vol] 10.5 fL Normal 9.0-12.7 [facility] Comment on above: Order Comment: Speci men Type: BLOOD SPECIMENOrdering Facility: [facility] Address: [address] Performed By: #### 5 8410-2 ####[facility] LABIA [id number] [place] [address] [place] Platelets (Bld) [#/Vol] 305 10*3/uL Normal 150-400 [facility] Comment on above: Order Comment: Speci men Type: BLOOD SPECIMENOrdering Facility: [facility] Address: [address] [place], [place] [address] Performed By: #### 5 8410-2 ####[facility] LABCL[facility] [id number] [place] [address] [place] RBC (Bld) [#/Vol] 3.29 10*6/uL Low 3.90-5.20 [facility] Comment on above: Order Comment: Speci men Type: BLOOD SPECIMENOrdering Facility: [facility] Address: [address] Performed By: #### 5 8410-2 ####[facility] LABIA [id number] [address] [place] WBC (Bld) [#/Vol] 6.23 10*3/uL Normal 3.70-11.00 [facility] Comment on above: Order Comment: Speci men Type: BLOOD SPECIMENOrdering Facility: [facility] Address: [address] Performed By: #### 5 8410-2 ####[facility]IA [id number] [place] [address] [place] Comprehensive metabolic 2000 panelon 04-12-2023 Albumin [Mass/Vol] 3.3 g/dL Low 3.9-4.[address] [facility] Comment on above: Order Comment: Speci men Type: BLOOD SPECIMENOrdering Facility: [facility] Address: [address] Performed By: #### 1 9123-9, 2777-1, 42620-8 ####[facility] [id number] [place] [address] [place] ALP [Catalytic activity/Vol] 58 U/L Normal 34-123 [facility] Comment on above: Order Comment: Speci men Type: BLOOD SPECIMENOrdering Facility: [facility] Address: [address] Performed By: #### 1 9123-9, 2776-08, 36598-2 ####[facility] [id number] [place] [address] [place] ALT [Catalytic activity/Vol] 9 U/L Normal 7-38 [facility] Comment on above: Order Comment: Speci men Type: BLOOD SPECIMENOrdering Facility: [facility] Address: [address] [place] [address] Performed By: #### 1 9123-9, 27702-06, ####[facility] LABCLIA [id number] [place] [address] [place] Anion gap [Moles/Vol] 12 mmol/L Normal 9-18 [facility] Comment on above: Order Comment: Speci men Type: BLOOD SPECIMENOrdering Facility: [facility] Address: [address] [place] [address] Performed By: #### 1 9123-9, 2776-08, ####[facility] LABCLIA [id number] [place] [address] [place] AST [Catalytic activity/Vol] 17 U/L Normal 13-35 [facility] Comment on above: Order Comment: Speci men Type: BLOOD SPECIMENOrdering Facility: [facility] Address: [address] [place] [address] Performed By: #### 1 9123-9, 2776-08, 40384-2 ####[facility] LABCLIA [id number] [place] [address] [place] Bilirubin [Mass/Vol] 0.6 mg/dL Normal 0.2-1.3 [facility] Comment on above: Order Comment: Speci men Type: BLOOD SPECIMENOrdering Facility: [facility] Address: [address] [place] [address] Performed By: #### 1 9123-9, 27702-06, 99053-6 ####[facility] LABCLIA [id number] [place] [address] [place] Calcium [Mass/Vol] 8.7 mg/dL Normal 8.5-10.[address] [facility] Comment on above: Order Comment: Speci men Type: BLOOD SPECIMENOrdering Facility: [facility] Address: [address] [place] [address] Performed By: #### 1 9123-9, 2777, 42132-0 ####[facility] LABCLIA [id number] [place] [address] [place] Chloride [Moles/Vol] 101 mmol/L Normal 97-105 [facility] Comment on above: Order Comment: Speci men Type: BLOOD SPECIMENOrdering Facility: [facility] Address: [address] [place] [address] Performed By: #### 1 9123-9, 27702-06, 68261-5 ####[facility] LABCLIA [id number] [place] [address] [place] CO2 [Moles/Vol] 26 mmol/L Normal 22-30 [facility] Comment on above: Order Comment: Speci men Type: BLOOD SPECIMENOrdering Facility: [facility] Address: [address] [place] [address] Performed By: #### 1 9123-9, 27702-06, 35274-1 ####[facility] LABCLIA [id number] [place] [address] [place] Creatinine [Mass/Vol] 0.47 mg/dL Low 0.58-0.96 [facility] Comment on above: Order Comment: Speci men Type: BLOOD SPECIMENOrdering Facility: [facility] Address: [address] [place] [address] Performed By: #### 1 9123-9, 2777-, 44792-5 ####[facility] LABCLIA [id number] [address] Creatinine and Glomerular filtration rate.predicted panel (S/P/Bld) 94 mL/min/1.73m??? Normal >=60 [facility] Comment on above: Order Comment: Zay sandoval Type: BLOOD SPECIMENOrdering Facility: [facility] Address: [address] [place] [address] Result Comment: Marlyn mated Glomerular Filtration Rate [...] GFR. Performed By: #### 1 9123-9, 2777-1, 13372-1 ####[facility] LABCLIA [id number] [address] [place] [facility] Glucose [Mass/Vol] 89 mg/dL Normal 74-[address] [facility] Comment on above: Order Comment: Zay sandoval Type: BLOOD SPECIMENOrdering Facility: [facility] Address: [address] [place] [address] Result Comment: The [place] [employer] (ADA) provides guidance for cutoff [...] Standards of Medical Care in Diabetes 2016, [place] [employer]. Diabetes Care. 2016.39(Suppl 1). Performed By: #### 1 9123-9, 2777-1, 11744-5 ####[facility] LABCLIA [id number] [place] [id number] [place] Potassium [Moles/Vol] 3.4 mmol/L Low 3.7-5.1 [facility] Comment on above: Order Comment: Speci men Type: BLOOD SPECIMENOrdering Facility: [facility] Address: [address] [place] [address] Performed By: #### 1 9123-9, 277-1, 87795-9 ####[facility] LABCLIA [id number] [place] [address] [place] Protein [Mass/Vol] 6.1 g/dL Low 6.3-8.[address] [facility] Comment on above: Order Comment: Speci men Type: BLOOD SPECIMENOrdering Facility: [facility] Address: [address] [place] [address] Performed By: #### 1 9123-9, 2776-08, 21285-5 ####[facility] LABCLIA [id number] [place] [address] [place] Sodium [Moles/Vol] 139 mmol/L Normal 136-[address] [facility] Comment on above: Order Comment: Speci men Type: BLOOD SPECIMENOrdering Facility: [facility] Address: [address] [place], [place] [address] Performed By: #### 1 9123-9, 27702-06, 02140-7 ####[facility] LABCLIA [id number] [place] [address] [place] Urea nitrogen [Mass/Vol] 7 mg/dL Normal 7-21 [facility] Comment on above: Order Comment: Speci men Type: BLOOD SPECIMENOrdering Facility: [facility] Address: [address] [place], [place] [address] Performed By: #### 1 9123-9, 27702-06, 73096-0 ####[facility] LABCLIA [id number] [place] [id number] [place] Magnesium SerPl-mCncon 04-12 Magnesium [Mass/Vol] 2.0 mg/dL Normal 1.7-2.3 [facility] Comment on above: Order Comment: Speci men Type: BLOOD SPECIMENOrdering Facility: [facility] Address: [address] [place] [address] Performed By: #### 1 9123-9, 2777-1, 87822-6 ####[facility] LABCLIA [id number] [place] [address] [place] Phosphate SerPl-mCncon 04-12 Phosphate [Mass/Vol] 3.2 mg/dL Normal 2.7-4.8 [facility] Comment on above: Order Comment: Speci men Type: BLOOD SPECIMENOrdering Facility: [facility] Address: [address] [place] [address] Performed By: #### 1 9123-9, 2777-1, 62361-9 ####[facility] LABIA [id number] [place] [address] [place] THERAPY NTon 04-12-2023 THERAPY NT Normal [facility] CASE MANAGEMon 04-11-2023 CASE MANAGEM Normal [facility] CBC panel Auto (Bld)on 04-11 Erythrocyte distribution width (RBC) [Ratio] 13.2 % Normal 11.5-15.0 [facility] Comment on above: Order Comment: Speci men Type: BLOOD SPECIMENOrdering Facility: [facility] Address: [address] [place] [address] Performed By: #### 5 8410-2 ####[facility] LABIA [id number] [place] [address] [place] Hematocrit (Bld) [Volume fraction] 34.2 % Low 36.0-46.0 [facility] Comment on above: Order Comment: Speci men Type: BLOOD SPECIMENOrdering Facility: [facility] Address: [address] [place] [address] Performed By: #### 5 8410-2 ####[facility] LABIA [id number] [address] [place] Hemoglobin (Bld) [Mass/Vol] 10.7 g/dL Low 11.5-15.5 [facility] Comment on above: Order Comment: Speci men Type: BLOOD SPECIMENOrdering Facility: [facility] Address: [address] [place], [place] [address] Performed By: #### 5 8410-2 ####[place] [id number] [place] [address] [place] MCH (RBC) [Entitic mass] 32.1 pg Normal 26.0-34.0 [facility] Comment on above: Order Comment: Speci men Type: BLOOD SPECIMENOrdering Facility: [facility] Address: [address] [place], [place] [address] Performed By: #### 5 8410-2 ####[place] [id number] [address] [place] MCHC (RBC) [Mass/Vol] 31.3 g/dL Normal 30.5-36.0 [facility] Comment on above: Order Comment: Speci men Type: BLOOD SPECIMENOrdering Facility: [facility] Address: [address] [place], [place] [address] Performed By: #### 5 8410-2 ####[place] [id number] [address] [place] MCV (RBC) [Entitic vol] 102.7 fL High 80.0-100.0 [facility] Comment on above: Order Comment: Speci men Type: BLOOD SPECIMENOrdering Facility: [facility] Address: [address] [place], [place] [address] Performed By: #### 5 8410-2 ####[facility] [id number] [id number] [address] [place] Nucleated RBC (Bld) [#/Vol] 10*3/uL Normal <0.01 [facility] Comment on above: Order Comment: Speci men Type: BLOOD SPECIMENOrdering Facility: [facility] Address: [address] [place], [place] [address] Performed By: #### 5 8410-2 ####[facility] LABIA [id number] [place] [address] [place] Platelet mean volume (Bld) [Entitic vol] 10.5 fL Normal 9.0-12.7 [facility] Comment on above: Order Comment: Speci men Type: BLOOD SPECIMENOrdering Facility: [facility] Address: [address] [place], [place] [address] Performed By: #### 5 8410-2 ####[facility] LABCLIA [id number] [place] [address] [place] Platelets (Bld) [#/Vol] 267 10*3/uL Normal 150-400 [facility] Comment on above: Order Comment: Speci men Type: BLOOD SPECIMENOrdering Facility: [facility] Address: [address] [place], [place] [address] Performed By: #### 5 8410-2 ####[facility] LABIA [id number] [place] [address] [place] RBC (Bld) [#/Vol] 3.33 10*6/uL Low 3.90-5.20 [facility] Comment on above: Order Comment: Speci men Type: BLOOD SPECIMENOrdering Facility: [facility] Address: [address] [place], [place] [address] Performed By: #### 5 8410-2 ####[facility] LABCLIA [id number] [place] [address] [place] WBC (Bld) [#/Vol] 5.53 10*3/uL Normal 3.70-11.00 [facility] Comment on above: Order Comment: Speci men Type: BLOOD SPECIMENOrdering Facility: [facility] Address: [address] [place] [address] Performed By: #### 5 8410-2 ####[facility] LABCLIA [id number] [place] [address] [place] Comprehensive metabolic 2000 panelon 04-11-2023 Albumin [Mass/Vol] 3.3 g/dL Low 3.9-4.[address] [facility] Comment on above: Order Comment: Speci men Type: BLOOD SPECIMENOrdering Facility: [facility] Address: [address] [place] [address] Performed By: #### 1 9123-9, 15659-3, 2777-1 ####[facility] LABIA [id number] [place] [address] [place] ALP [Catalytic activity/Vol] 59 U/L Normal 34-123 [facility] Comment on above: Order Comment: Speci men Type: BLOOD SPECIMENOrdering Facility: [facility] Address: [address] [place] [address] Performed By: #### 1 9123-9, 38125-4, 2777-1 ####[facility] LABIA [id number] [place] [address] [place] ALT [Catalytic activity/Vol] 9 U/L Normal 7-38 [facility] Comment on above: Order Comment: Speci men Type: BLOOD SPECIMENOrdering Facility: [facility] Address: [address] [place] [address] Performed By: #### 1 9123-9, 65421-1, 2777-1 ####[facility] LABIA [id number] [place] [address] [place] Anion gap [Moles/Vol] 12 mmol/L Normal 9-18 [facility] Comment on above: Order Comment: Speci men Type: BLOOD SPECIMENOrdering Facility: [facility] Address: [address] [place] [address] Performed By: #### 1 9123-9, 92197-0, 277- ####[facility] LABCLIA [id number] [place] [address] [place] AST [Catalytic activity/Vol] 15 U/L Normal 13-35 [facility] Comment on above: Order Comment: Speci men Type: BLOOD SPECIMENOrdering Facility: [facility] Address: [address] Performed By: #### 1 9123-9, 93792-5, 277- ####[facility] LABCLIA [id number] [place] [address] [place] Bilirubin [Mass/Vol] 0.6 mg/dL Normal 0.2-1.3 [facility] Comment on above: Order Comment: Speci men Type: BLOOD SPECIMENOrdering Facility: [facility] Address: [address] [place], [place] [address] Performed By: #### 1 9123-9, 88012-3, 2776-08 ####[facility] LABCLIA [id number] [place] [address] [place] Calcium [Mass/Vol] 8.8 mg/dL Normal 8.5-10.[address] [facility] Comment on above: Order Comment: Speci men Type: BLOOD SPECIMENOrdering Facility: [facility] Address: [address] [place] [address] Performed By: #### 1 9123-9, 16703-3, 277- ####[facility] LABCLIA [id number] [place] [address] [place] Chloride [Moles/Vol] 103 mmol/L Normal 97-105 [facility] Comment on above: Order Comment: Speci men Type: BLOOD SPECIMENOrdering Facility: [facility] Address: [address] [place] [address] Performed By: #### 1 9123-9, 35179-2, 27702-06 ####[facility] LABIA [id number] [place] [address] [place] CO2 [Moles/Vol] 25 mmol/L Normal 22-30 [facility] Comment on above: Order Comment: Speci men Type: BLOOD SPECIMENOrdering Facility: [facility] Address: [address] [place] [address] Performed By: #### 1 9123-9, 24512-8, 2776-08 ####[facility] LABIA [id number] [place] [address] [place] Creatinine [Mass/Vol] 0.46 mg/dL Low 0.58-0.96 [facility] Comment on above: Order Comment: Speci men Type: BLOOD SPECIMENOrdering Facility: [facility] Address: [address] [place] [address] Performed By: #### 1 9123-9, , 2776-08 ####[facility] LABIA [id number] [address] [place] Creatinine and Glomerular filtration rate.predicted panel (S/P/Bld) 94 mL/min/1.73m??? Normal >=60 [facility] Comment on above: Order Comment: Speci men Type: BLOOD SPECIMENOrdering Facility: [facility] Address: [address] [place] [address] Result Comment: Marlyn mated Glomerular Filtration Rate [...] actual GFR. Performed By: #### 1 9123-9, 26750-1, 2777-1 ####[facility] LABIA [id number] [place] [address] [place] Glucose [Mass/Vol] 102 mg/dL High 74-[address] [facility] Comment on above: Order Comment: Speci men Type: BLOOD SPECIMENOrdering Facility: [facility] Address: [address] [place] [address] Result Comment: The [place] [employer] (ADA) provides guidance for cutoff [...] Standards of Medical Care in Diabetes 2016, [place] [employer]. Diabetes Care. 2016.39(Suppl 1). Performed By: #### 1 9123-9, 35973-6, 2777-1 ####[facility] LABIA [id number] [place] [address] [place] Potassium [Moles/Vol] 3.7 mmol/L Normal 3.7-5.1 [facility] Comment on above: Order Comment: Speci men Type: BLOOD SPECIMENOrdering Facility: [facility] Address: [address] [place], [place] [address] Performed By: #### 1 9123-9, 01932-1, 2777-1 ####[facility] LABIA [id number] [place] [id number] [place] Protein [Mass/Vol] 5.9 g/dL Low 6.3-8.[address] [facility] Comment on above: Order Comment: Speci men Type: BLOOD SPECIMENOrdering Facility: [facility] Address: [address] [place] [address] Performed By: #### 1 9123-9, 34502-4, 2777-1 ####[facility] LABCLIA [id number] [place] [address] [place] Sodium [Moles/Vol] 140 mmol/L Normal 136-[address] [facility] Comment on above: Order Comment: Speci men Type: BLOOD SPECIMENOrdering Facility: [facility] Address: [address] [place] [address] Performed By: #### 1 9123-9, 96052-3, 2777- ####[facility] LABIA [id number] [place] [address] [place] Urea nitrogen [Mass/Vol] 5 mg/dL Low 7-21 [facility] Comment on above: Order Comment: Speci men Type: BLOOD SPECIMENOrdering Facility: [facility] Address: [address] [place] [address] Performed By: #### 1 9123-9, 94735-7, 2777- ####[facility] LABIA [id number] [place] [address] [place] Magnesium SerPl-mCncon 04-11 Magnesium [Mass/Vol] 1.9 mg/dL Normal 1.7-2.3 [facility] Comment on above: Order Comment: Speci men Type: BLOOD SPECIMENOrdering Facility: [facility] Address: [address] [place] [address] Performed By: #### 1 9123-9, 04096-2, 2777 ####[facility] LABIA [id number] [place] [address] [place] Phosphate SerPl-mCncon 04-11 Phosphate [Mass/Vol] 3.3 mg/dL Normal 2.7-4.8 [facility] Comment on above: Order Comment: Speci men Type: BLOOD SPECIMENOrdering Facility: [facility] Address: [address] [place] [address] Performed By: #### 1 9123-9, 78443-6, 2777-1 ####[facility] LABIA [id number] [address] [place] CBC panel Auto (Bld)on 04-10 Erythrocyte distribution width (RBC) [Ratio] 13.6 % Normal 11.5-15.0 [facility] Comment on above: Order Comment: Speci men Type: BLOOD SPECIMENOrdering Facility: [facility] Address: [address] [place] [address] Performed By: #### 5 8410-2 ####[facility] [id number] [address] [place] Hematocrit (Bld) [Volume fraction] 31.1 % Low 36.0-46.0 [facility] Comment on above: Order Comment: Speci men Type: BLOOD SPECIMENOrdering Facility: [facility] Address: [address] Performed By: #### 5 8410-2 ####[facility] [id number] [address] [place] Hemoglobin (Bld) [Mass/Vol] 9.8 g/dL Low 11.5-15.5 [facility] Comment on above: Order Comment: Speci men Type: BLOOD SPECIMENOrdering Facility: [facility] Address: [address] Performed By: #### 5 8410-2 ####[facility] LABIA [id number] [address] [place] MCH (RBC) [Entitic mass] 32.5 pg Normal 26.0-34.0 [facility] Comment on above: Order Comment: Speci men Type: BLOOD SPECIMENOrdering Facility: [facility] Address: [address] Performed By: #### 5 8410-2 ####[facility] LABIA [id number] [place] [address] [place] MCHC (RBC) [Mass/Vol] 31.5 g/dL Normal 30.5-36.0 [facility] Comment on above: Order Comment: Speci men Type: BLOOD SPECIMENOrdering Facility: [facility] Address: [address] [place], [place] [address] Performed By: #### 5 8410-2 ####[facility] [id number] [place] [address] [place] MCV (RBC) [Entitic vol] 103.0 fL High 80.0-100.0 [facility] Comment on above: Order Comment: Speci men Type: BLOOD SPECIMENOrdering Facility: [facility] Address: [address] [place] [address] Performed By: #### 5 8410-2 ####[place] [id number] [place] [address] [place] Nucleated RBC (Bld) [#/Vol] 10*3/uL Normal <0.01 [facility] Comment on above: Order Comment: Speci men Type: BLOOD SPECIMENOrdering Facility: [facility] Address: [address] [place], [place] [address] Performed By: #### 5 8410-2 ####[place] [id number] [place] [address] [place] Platelet mean volume (Bld) [Entitic vol] 10.5 fL Normal 9.0-12.7 [facility] Comment on above: Order Comment: Speci men Type: BLOOD SPECIMENOrdering Facility: [facility] Address: [address] [place], [place] [address] Performed By: #### 5 8410-2 ####[facility] [id number] [place] [address] [place] Platelets (Bld) [#/Vol] 231 10*3/uL Normal 150-400 [facility] Comment on above: Order Comment: Speci men Type: BLOOD SPECIMENOrdering Facility: [facility] Address: [address] [place] [address] Performed By: #### 5 8410-2 ####[facility] LABCLIA [id number] [place] [address] [place] RBC (Bld) [#/Vol] 3.02 10*6/uL Low 3.90-5.20 [facility] Comment on above: Order Comment: Speci men Type: BLOOD SPECIMENOrdering Facility: [facility] Address: [address] [place] [address] Performed By: #### 5 8410-2 ####[facility] LABCLIA [id number] [place] [address] [place] WBC (Bld) [#/Vol] 6.95 10*3/uL Normal 3.70-11.00 [facility] Comment on above: Order Comment: Speci men Type: BLOOD SPECIMENOrdering Facility: [facility] Address: [address] [place] [address] Performed By: #### 5 8410-2 ####[facility] LABCLIA [id number] [place] [address] [place] [address] CHEST W IVCON PEon 2022 CT CHEST W IVCON PE Normal [facility] Comprehensive metabolic 2000 panelon 04-10-2023 Albumin [Mass/Vol] 3.2 g/dL Low 3.9-4.[address] [facility] Comment on above: Order Comment: Speci men Type: BLOOD SPECIMENOrdering Facility: [facility] Address: [address] [place] [address] Performed By: #### 2 4323-8, 57050-9, 2777-1 ####[facility] LABCLIA [id number] [place] [address] [place] ALP [Catalytic activity/Vol] 51 U/L Normal 34-123 [facility] Comment on above: Order Comment: Speci men Type: BLOOD SPECIMENOrdering Facility: [facility] Address: [address] [place] [address] Performed By: #### 2 4323-8, 52465-7, 2776-08 ####[facility] LABCLIA [id number] [place] [address] [place] ALT [Catalytic activity/Vol] 9 U/L Normal 7-38 [facility] Comment on above: Order Comment: Speci men Type: BLOOD SPECIMENOrdering Facility: [facility] Address: [address] [place] [address] Performed By: #### 2 4323-8, , 2776-08 ####[facility] LABCLIA [id number] [place] [address] [place] Anion gap [Moles/Vol] 11 mmol/L Normal 9-18 [facility] Comment on above: Order Comment: Speci men Type: BLOOD SPECIMENOrdering Facility: [facility] Address: [address] [place] [address] Performed By: #### 2 4323-8, , 2776-08 ####[facility] LABCL[facility] [id number] [place] [address] [place] AST [Catalytic activity/Vol] 19 U/L Normal 13-35 [facility] Comment on above: Order Comment: Speci men Type: BLOOD SPECIMENOrdering Facility: [facility] Address: [address] [place] [address] Performed By: #### 2 4323-8, , 2776-08 ####[facility]CL[facility] [id number] [place] [address] [place] Bilirubin [Mass/Vol] 0.6 mg/dL Normal 0.2-1.3 [facility] Comment on above: Order Comment: Speci men Type: BLOOD SPECIMENOrdering Facility: [facility] Address: [address] [place] [address] Performed By: #### 2 4323-8, , 2776-08 ####[facility]CL[facility] [id number] [place] [address] [place] Calcium [Mass/Vol] 8.9 mg/dL Normal 8.5-10.[address] [facility] Comment on above: Order Comment: Speci men Type: BLOOD SPECIMENOrdering Facility: [facility] Address: [address] [place] [address] Performed By: #### 2 432-8, , 2776-08 ####[facility]CL[facility] [id number] [place] [address] [place] Chloride [Moles/Vol] 102 mmol/L Normal 97-105 [facility] Comment on above: Order Comment: Speci men Type: BLOOD SPECIMENOrdering Facility: [facility] Address: [address] [place], [place] [address] Performed By: #### 2 432-8, , 2776-08 ####[facility] LABCL[facility] [id number] [place] [address] [place] CO2 [Moles/Vol] 26 mmol/L Normal 22-30 [facility] Comment on above: Order Comment: Speci men Type: BLOOD SPECIMENOrdering Facility: [facility] Address: [place] Performed By: #### 2 4323-8, , 2776-08 ####[facility] LABCLIA [id number] [address] [address] [place] Creatinine [Mass/Vol] 0.54 mg/dL Low 0.58-0.96 [facility] Comment on above: Order Comment: Zay sandoval Type: BLOOD SPECIMENOrdering Facility: [facility] Address: [address] [id number] Performed By: #### 2 4323-8, 47834-5, 2776-08 ####[facility] LABCLIA [id number] [place] [address] [facility] [place] Creatinine and Glomerular filtration rate.predicted panel (S/P/Bld) 91 mL/min/1.73m??? Normal >=60 [facility] Comment on above: Order Comment: Zay sandoval Type: BLOOD SPECIMENOrdering Facility: [facility] Address: [address] Result Comment: Marlyn mated Glomerular Filtration [...] Performed By: #### 2 4323-8, , 2776-08 ####[facility] LABCLIA [id number] [place] [address] [place] Glucose [Mass/Vol] 107 mg/dL High 74-[address] [facility] Comment on above: Order Comment: Zay sandoval Type: BLOOD SPECIMENOrdering Facility: [facility] Address: [address] [id number] Result Comment: The [place] [employer] (ADA) provides guidance for cutoff [...] Standards of Medical Care in Diabetes 2016, [place]. Diabetes Care. 2016.39(Suppl 1). Performed By: #### 2 4323-8, , 2776-08 ####[facility] LABCLIA [id number] [address] [address] [place] Potassium [Moles/Vol] 3.7 mmol/L Normal 3.7-5.1 [facility] Comment on above: Order Comment: Speci men Type: BLOOD SPECIMENOrdering Facility: [facility] Address: [address] [id number] Performed By: #### 2 4323-8, , 2776-08 ####[facility] LABCLIA [id number] [address] [address] [place] Protein [Mass/Vol] 6.1 g/dL Low 6.3-8.[address] [facility] Comment on above: Order Comment: Speci men Type: BLOOD SPECIMENOrdering Facility: [facility] Address: [address] [address] Performed By: #### 2 4323-8, , 2776-08 ####[facility] LABIA [id number] [address] [address] [place] Sodium [Moles/Vol] 139 mmol/L Normal 136-[address] [facility] Comment on above: Order Comment: Speci men Type: BLOOD SPECIMENOrdering Facility: [facility] Address: [address] [place] [address] Performed By: #### 2 4323-8, , 2776-08 ####[facility] LABCLIA [id number] [address] [address] [place] Urea nitrogen [Mass/Vol] 6 mg/dL Low 7-21 [facility] Comment on above: Order Comment: Speci men Type: BLOOD SPECIMENOrdering Facility: [facility] Address: [address] Performed By: #### 2 4323-8, , 2776-08 ####[facility] LABCLIA [id number] [place] [address] [place] Magnesium [facility] Magnesium [Mass/Vol] 1.9 mg/dL Normal 1.7-2.3 [facility] Comment on above: Order Comment: Speci men Type: BLOOD SPECIMENOrdering Facility: [facility] Address: [address] [place] [address] Performed By: #### 2 4323-8, , 2776-08 ####[facility] LABCLIA [id number] [place] [address] [place] Phosphate SerPl-mCncon 04-10 Phosphate [Mass/Vol] 2.5 mg/dL Low 2.7-4.8 [facility] Comment on above: Order Comment: Speci men Type: BLOOD SPECIMENOrdering Facility: [facility] Address: [address] [place] [address] Performed By: #### 2 4323-8, , 2776-08 ####[facility] LABIA [id number] [place] [address] [place] ALLIED HEALTHon 04-09-2023 ALLIED HEALTH Normal [facility] CASE MANAGEMon 04-09-2023 CASE MANAGEM Normal [facility] CBC panel Auto (Bld)on 04-09 Erythrocyte distribution width (RBC) [Ratio] 13.7 % Normal 11.5-15.0 [facility] Comment on above: Order Comment: Speci men Type: BLOOD SPECIMENOrdering Facility: [facility] Address: [address] [place] [address] Performed By: #### 5 8410-2 ####[facility] LABCLIA [id number] [address] [place] Hematocrit (Bld) [Volume fraction] 33.0 % Low 36.0-46.0 [facility] Comment on above: Order Comment: Speci men Type: BLOOD SPECIMENOrdering Facility: [facility] Address: [address] [place] [address] Performed By: #### 5 8410-2 ####[facility] LABIA [id number] [address] [place] Hemoglobin (Bld) [Mass/Vol] 10.5 g/dL Low 11.5-15.5 [facility] Comment on above: Order Comment: Speci men Type: BLOOD SPECIMENOrdering Facility: [facility] Address: [address] [place] [address] Performed By: #### 5 8410-2 ####[facility] LABIA [id number] [address] STATES OF [facility] MCH (RBC) [Entitic mass] 32.4 pg Normal 26.0-34.0 [facility] Comment on above: Order Comment: Speci men Type: BLOOD SPECIMENOrdering Facility: [facility] Address: [address] [place] [address] Performed By: #### 5 8410-2 ####[facility] LABIA [id number] [address] [place] MCHC (RBC) [Mass/Vol] 31.8 g/dL Normal 30.5-36.0 [facility] Comment on above: Order Comment: Speci men Type: BLOOD SPECIMENOrdering Facility: [facility] Address: [address] [place] [address] Performed By: #### 5 8410-2 ####[facility] LABCLIA [id number] [place] [address] [place] MCV (RBC) [Entitic vol] 101.9 fL High 80.0-100.0 [facility] Comment on above: Order Comment: Speci men Type: BLOOD SPECIMENOrdering Facility: [facility] Address: [address] Performed By: #### 5 8410-2 ####[facility] LABIA [id number] [place] [address] [place] Nucleated RBC (Bld) [#/Vol] 10*3/uL Normal <0.01 [facility] Comment on above: Order Comment: Speci men Type: BLOOD SPECIMENOrdering Facility: [facility] Address: [address] Performed By: #### 5 8410-2 ####[facility] LABIA [id number] [place] [address] [place] Platelet mean volume (Bld) [Entitic vol] 10.3 fL Normal 9.0-12.7 [facility] Comment on above: Order Comment: Speci men Type: BLOOD SPECIMENOrdering Facility: [facility] Address: [address] [place], [place] [address] Performed By: #### 5 8410-2 ####[facility] LABIA [id number] [place] [address] [place] Platelets (Bld) [#/Vol] 221 10*3/uL Normal 150-400 [facility] Comment on above: Order Comment: Speci men Type: BLOOD SPECIMENOrdering Facility: [facility] Address: [address] Performed By: #### 5 8410-2 ####[facility] LABIA [id number] [place] [address] [place] RBC (Bld) [#/Vol] 3.24 10*6/uL Low 3.90-5.20 [facility] Comment on above: Order Comment: Speci men Type: BLOOD SPECIMENOrdering Facility: [facility] Address: [address] [place], [place] [address] Performed By: #### 5 8410-2 ####[facility] LABIA [id number] [place] [address] [place] WBC (Bld) [#/Vol] 6.76 10*3/uL Normal 3.70-11.00 [facility] Comment on above: Order Comment: Speci men Type: BLOOD SPECIMENOrdering Facility: [facility] Address: [address] Performed By: #### 5 8410-2 ####[facility] LABIA [id number] [place] [address] [place] CNPNon 04-09-2023 CNPN Normal [facility] Comprehensive metabolic 2000 panelon 04-09-2023 Albumin [Mass/Vol] 3.3 g/dL Low 3.9-4.[address] [facility] Comment on above: Order Comment: Speci men Type: BLOOD SPECIMENOrdering Facility: [facility] Address: [address] [place] [address] Performed By: #### 2 4323-8, 74898-7, 2777-1 ####[facility] LABIA [id number] [place] [address] [place] ALP [Catalytic activity/Vol] 50 U/L Normal 34-123 [facility] Comment on above: Order Comment: Speci men Type: BLOOD SPECIMENOrdering Facility: [facility] Address: [address] Performed By: #### 2 4323-8, 87889-4, 2777-1 ####[facility] LABIA [id number] [place] [address] [place] ALT [Catalytic activity/Vol] 9 U/L Normal 7-38 [facility] Comment on above: Order Comment: Speci men Type: BLOOD SPECIMENOrdering Facility: [facility] Address: [address] [place] [address] Performed By: #### 2 4323-8, 22988-0, 2776- ####[facility] LABIA [id number] [place] [address] [place] Anion gap [Moles/Vol] 10 mmol/L Normal 9-18 [facility] Comment on above: Order Comment: Speci men Type: BLOOD SPECIMENOrdering Facility: [facility] Address: [address] Performed By: #### 2 4323-8, 99350-0, 2776-08 ####[facility] LABIA [id number] [place] [address] [place] AST [Catalytic activity/Vol] 17 U/L Normal 13-35 [facility] Comment on above: Order Comment: Speci men Type: BLOOD SPECIMENOrdering Facility: [facility] Address: [address] [address] Performed By: #### 2 4323-8, , 2776-08 ####[facility] LABIA [id number] [place] [address] [place] Bilirubin [Mass/Vol] 0.7 mg/dL Normal 0.2-1.3 [facility] Comment on above: Order Comment: Speci men Type: BLOOD SPECIMENOrdering Facility: [facility] Address: [address] Performed By: #### 2 4323-8, 41320-1, 2776-08 ####[facility] LABIA [id number] [place] [address] [place] Calcium [Mass/Vol] 8.7 mg/dL Normal 8.5-10.[address] [facility] Comment on above: Order Comment: Speci men Type: BLOOD SPECIMENOrdering Facility: [facility] Address: [address] Performed By: #### 2 4323-8, , 2776-08 ####[facility] LABCLIA [id number] [place] [address] [place] Chloride [Moles/Vol] 105 mmol/L Normal 97-105 [facility] Comment on above: Order Comment: Speci men Type: BLOOD SPECIMENOrdering Facility: [facility] Address: [address] [place], [place] [address] Performed By: #### 2 4323-8, , 2776-08 ####[facility] LABIA [id number] [place] [address] [place] CO2 [Moles/Vol] 26 mmol/L Normal 22-30 [facility] Comment on above: Order Comment: Speci men Type: BLOOD SPECIMENOrdering Facility: [facility] Address: [address] [place] [address] Performed By: #### 2 4323-8, , 2776-08 ####[facility] [id number] [place] [address] [place] Creatinine [Mass/Vol] 0.53 mg/dL Low 0.58-0.96 [facility] Comment on above: Order Comment: Speci men Type: BLOOD SPECIMENOrdering Facility: [facility] Address: [address] [place], [place] [address] Performed By: #### 2 4323-8, , 2776-08 ####[place] [id number] [place] [address] [place] Creatinine and Glomerular filtration rate.predicted panel (S/P/Bld) 91 mL/min/1.73m??? Normal >=60 [facility] Comment on above: Order Comment: Speci men Type: BLOOD SPECIMENOrdering Facility: [facility] Address: [address] [place], [place] [address] Result Comment: Marlyn mated Glomerular Filtration Rate [...] Performed By: #### 2 4323-8, , 2776-08 ####[facility] LABCLIA [id number] [place] [address] [place] Glucose [Mass/Vol] 98 mg/dL Normal 74-[address] [facility] Comment on above: Order Comment: Zay sandoval Type: BLOOD SPECIMENOrdering Facility: [facility] Address: [address] [place], [place] [address] Result Comment: The [place] [employer] (ADA) provides guidance for cutoff [...] Standards of Medical Care in Diabetes 2016, [place] [employer]. Diabetes Care. 2016.39(Suppl 1). Performed By: #### 2 4323-8, , 2776-08 ####[facility] LABCLIA [id number] [address] [address] [place] Potassium [Moles/Vol] 3.8 mmol/L Normal 3.7-5.1 [facility] Comment on above: Order Comment: Zay sandoval Type: BLOOD SPECIMENOrdering Facility: [facility] Address: [address] [place] [address] Performed By: #### 2 4323-8, , 2776-08 ####[facility] LABCLIA [id number] [place] [address] [place] Protein [Mass/Vol] 5.8 g/dL Low 6.3-8.[address] [facility] Comment on above: Order Comment: Speci men Type: BLOOD SPECIMENOrdering Facility: [facility] Address: [address] [place] [address] Performed By: #### 2 4323-8, , 2776-08 ####[facility] LABCLIA [id number] [place] [address] [place] Sodium [Moles/Vol] 141 mmol/L Normal 136-[address] [facility] Comment on above: Order Comment: Speci men Type: BLOOD SPECIMENOrdering Facility: [facility] Address: [address] [place] [address] Performed By: #### 2 4323-8, , 2776-08 ####[facility] LABCLIA [id number] [place] [address] [place] Urea nitrogen [Mass/Vol] 7 mg/dL Normal 7-21 [facility] Comment on above: Order Comment: Speci men Type: BLOOD SPECIMENOrdering Facility: [facility] Address: [address] [place] [address] Performed By: #### 2 4323-8, , 2776-08 ####[facility] LABCLIA [id number] [place] [id number] [place] Magnesium SerPl-mCncon 04-09 Magnesium [Mass/Vol] 1.9 mg/dL Normal 1.7-2.3 [facility] Comment on above: Order Comment: Speci men Type: BLOOD SPECIMENOrdering Facility: [facility] Address: [address] [place] [address] Performed By: #### 2 4323-8, , 2776- ####[facility] LABCLIA [id number] [place] [address] [place] Phosphate SerPl-mCncon 04-09 Phosphate [Mass/Vol] 2.4 mg/dL Low 2.7-4.8 [facility] Comment on above: Order Comment: Speci men Type: BLOOD SPECIMENOrdering Facility: [facility] Address: [address] [address] Performed By: #### 2 4323-8, 81542-9, 2777-1 ####[facility] LABCLIA [id number] [address] [place] THERAPY NTon 04-09-2023 THERAPY NT Normal [facility] THERAPY NT Normal [facility] CASE MGT INIT ASSESon 2022 CASE MGT INIT ASSES Normal [facility] CBC panel Auto (Bld)on 04-08 Erythrocyte distribution width (RBC) [Ratio] 13.8 % Normal 11.5-15.0 [facility] Comment on above: Order Comment: Speci men Type: BLOOD SPECIMENOrdering Facility: [facility] Address: [address] [place] [address] Performed By: #### 5 8410-2 ####[facility] LABIA [id number] [place] [address] [place] Hematocrit (Bld) [Volume fraction] 36.0 % Normal 36.0-46.0 [facility] Comment on above: Order Comment: Speci men Type: BLOOD SPECIMENOrdering Facility: [facility] Address: [address] [place] [place] [address] Performed By: #### 5 8410-2 ####[facility] LABCLIA [id number] [place] [address] [place] Hemoglobin (Bld) [Mass/Vol] 11.8 g/dL Normal 11.5-15.5 [facility] Comment on above: Order Comment: Speci men Type: BLOOD SPECIMENOrdering Facility: [facility] Address: [address] [place] [address] Performed By: #### 5 8410-2 ####[place] [id number] [address] MCH (RBC) [Entitic mass] 32.4 pg Normal 26.0-34.0 [facility] Comment on above: Order Comment: Speci men Type: BLOOD SPECIMENOrdering Facility: [facility] Address: [address] [place] [place] [address] Performed By: #### 5 8410-2 ####[facility] LABIA [id number] [address] [facility] MCHC (RBC) [Mass/Vol] 32.8 g/dL Normal 30.5-36.0 [facility] Comment on above: Order Comment: Speci men Type: BLOOD SPECIMENOrdering Facility: [facility] Address: [address] Performed By: #### 5 8410-2 ####[facility] [id number] [address] [facility] MCV (RBC) [Entitic vol] 98.9 fL Normal 80.0-100.0 [facility] Comment on above: Order Comment: Speci men Type: BLOOD SPECIMENOrdering Facility: [facility] Address: [address] Performed By: #### 5 8410-2 ####[facility] [id number] [address] [place] Nucleated RBC (Bld) [#/Vol] 10*3/uL Normal <0.01 [facility] Comment on above: Order Comment: Speci men Type: BLOOD SPECIMENOrdering Facility: [facility] Address: [address] Performed By: #### 5 8410-2 ####[facility] LABIA [id number] [place] [address] [place] Platelet mean volume (Bld) [Entitic vol] 9.6 fL Normal 9.0-12.7 [facility] Comment on above: Order Comment: Speci men Type: BLOOD SPECIMENOrdering Facility: [facility] Address: [address] [place], [place] [address] Performed By: #### 5 8410-2 ####[facility] LABIA [id number] [place] [address] [place] Platelets (Bld) [#/Vol] 264 10*3/uL Normal 150-400 [facility] Comment on above: Order Comment: Speci men Type: BLOOD SPECIMENOrdering Facility: [facility] Address: [address] [place], [place] [address] Performed By: #### 5 8410-2 ####[facility] LABIA [id number] [place] [address] [place] RBC (Bld) [#/Vol] 3.64 10*6/uL Low 3.90-5.20 [facility] Comment on above: Order Comment: Speci men Type: BLOOD SPECIMENOrdering Facility: [facility] Address: [address] [place], [place] [address] Performed By: #### 5 8410-2 ####[facility] LABIA [id number] [place] [address] [place] WBC (Bld) [#/Vol] 8.97 10*3/uL Normal 3.70-11.00 [facility] Comment on above: Order Comment: Speci men Type: BLOOD SPECIMENOrdering Facility: [facility] Address: [address] [place], [place] [address] Performed By: #### 5 8410-2 ####[facility] LABIA [id number] [place] Erythrocyte distribution width (RBC) [Ratio] 14.0 % Normal 11.5-15.0 [facility] Comment on above: Order Comment: Speci men Type: BLOOD SPECIMENOrdering Facility: [facility] Address: [address] [place] [address] Performed By: #### 5 8410-2 ####[facility] LABIA [id number] [place] [address] [place] Hematocrit (Bld) [Volume fraction] 35.4 % Low 36.0-46.0 [facility] Comment on above: Order Comment: Speci men Type: BLOOD SPECIMENOrdering Facility: [facility] Address: [address] [place] [address] Performed By: #### 5 8410-2 ####[facility] LABIA [id number] [address] [place] Hemoglobin (Bld) [Mass/Vol] 11.7 g/dL Normal 11.5-15.5 [facility] Comment on above: Order Comment: Speci men Type: BLOOD SPECIMENOrdering Facility: [facility] Address: [address] [place] [address] Performed By: #### 5 8410-2 ####[facility] LABIA [id number] [place] [address] [place] MCH (RBC) [Entitic mass] 33.2 pg Normal 26.0-34.0 [facility] Comment on above: Order Comment: Speci men Type: BLOOD SPECIMENOrdering Facility: [facility] Address: [address] [place], [place] [address] Performed By: #### 5 8410-2 ####[facility] LABIA [id number] [place] [address] [place] MCHC (RBC) [Mass/Vol] 33.1 g/dL Normal 30.5-36.0 [facility] Comment on above: Order Comment: Speci men Type: BLOOD SPECIMENOrdering Facility: [facility] Address: [address] Performed By: #### 5 8410-2 ####[facility] LABIA [id number] [address] [place] MCV (RBC) [Entitic vol] 100.6 fL High 80.0-100.0 [facility] Comment on above: Order Comment: Speci men Type: BLOOD SPECIMENOrdering Facility: [facility] Address: [address] Performed By: #### 5 8410-2 ####[facility] [id number] [address] [place] Nucleated RBC (Bld) [#/Vol] 10*3/uL Normal <0.01 [facility] Comment on above: Order Comment: Speci men Type: BLOOD SPECIMENOrdering Facility: [facility] Address: [address] [place], [place] [address] Performed By: #### 5 8410-2 ####[place] [id number] [place] [address] [place] Platelet mean volume (Bld) [Entitic vol] 10.0 fL Normal 9.0-12.7 [facility] Comment on above: Order Comment: Speci men Type: BLOOD SPECIMENOrdering Facility: [facility] Address: [address] [place] [address] Performed By: #### 5 8410-2 ####[facility] LABIA [id number] [place] [address] [place] Platelets (Bld) [#/Vol] 277 10*3/uL Normal 150-400 [facility] Comment on above: Order Comment: Speci men Type: BLOOD SPECIMENOrdering Facility: [facility] Address: [address] Performed By: #### 5 8410-2 ####[facility] LABCLIA [id number] [place] [address] [place] RBC (Bld) [#/Vol] 3.52 10*6/uL Low 3.90-5.20 [facility] Comment on above: Order Comment: Speci men Type: BLOOD SPECIMENOrdering Facility: [facility] Address: [address] [place] [address] Performed By: #### 5 8410-2 ####[facility] LABIA [id number] [place] [address] [facility] [place] WBC (Bld) [#/Vol] 9.47 10*3/uL Normal 3.70-11.00 [facility] Comment on above: Order Comment: Speci men Type: BLOOD SPECIMENOrdering Facility: [facility] Address: [address] [place] [address] Performed By: #### 5 8410-2 ####[facility] LABIA [id number] [place] [address] [place] Comprehensive metabolic 2000 panelon 04-08-2023 Albumin [Mass/Vol] 3.7 g/dL Low 3.9-4.[address] [facility] Comment on above: Order Comment: Speci men Type: BLOOD SPECIMENOrdering Facility: [facility] Address: [address] [place] [address] Performed By: #### 2 4323-8, 27702-06, ####[facility] [id number] [place] [id number] [place] ALP [Catalytic activity/Vol] 58 U/L Normal 34-123 [facility] Comment on above: Order Comment: Speci men Type: BLOOD SPECIMENOrdering Facility: [facility] Address: [address] [place] [address] Performed By: #### 2 4323-8, 27702-06, ####[facility] LABCLIA [id number] [place] [address] [place] ALT [Catalytic activity/Vol] 9 U/L Normal 7-38 [facility] Comment on above: Order Comment: Speci men Type: BLOOD SPECIMENOrdering Facility: [facility] Address: [address] [place] [address] Performed By: #### 2 4323-8, 2776-08, ####[facility] LABCLIA [id number] [place] [address] [place] Anion gap [Moles/Vol] 16 mmol/L Normal 9-18 [facility] Comment on above: Order Comment: Speci men Type: BLOOD SPECIMENOrdering Facility: [facility] Address: [address] [place] [address] Performed By: #### 2 4323-8, 2776-08, ####[facility] LABCLIA [id number] [place] [address] [place] AST [Catalytic activity/Vol] 19 U/L Normal 13-35 [facility] Comment on above: Order Comment: Speci men Type: BLOOD SPECIMENOrdering Facility: [facility] Address: [address] [place] [address] Performed By: #### 2 4323-8, 2776-08, ####[facility] LABCLIA [id number] [place] [id number] [place] Bilirubin [Mass/Vol] 0.6 mg/dL Normal 0.2-1.3 [facility] Comment on above: Order Comment: Speci men Type: BLOOD SPECIMENOrdering Facility: [facility] Address: [address] [place], [place] [id number] Performed By: #### 2 4323-8, 27702-06, ####[facility] LABCLIA [id number] [place] [address] [place] Calcium [Mass/Vol] 9.0 mg/dL Normal 8.5-10.[address] [facility] Comment on above: Order Comment: Speci men Type: BLOOD SPECIMENOrdering Facility: [facility] Address: [address] [place] [address] Performed By: #### 2 4323-8, 2777-, ####[facility] LABCLIA [id number] [place] [address] [place] Chloride [Moles/Vol] 103 mmol/L Normal 97-105 [facility] Comment on above: Order Comment: Speci men Type: BLOOD SPECIMENOrdering Facility: [facility] Address: [address] [place] [address] Performed By: #### 2 4323-8, 27702-06, ####[facility] LABCLIA [id number] [place] [address] [place] CO2 [Moles/Vol] 20 mmol/L Low 22-30 [facility] Comment on above: Order Comment: Speci men Type: BLOOD SPECIMENOrdering Facility: [facility] Address: [address] [place], [place] [address] Performed By: #### 2 4323-8, 27702-06, ####[facility] LABCLIA [id number] [place] [address] [place] Creatinine [Mass/Vol] 0.56 mg/dL Low 0.58-0.96 [facility] Comment on above: Order Comment: Speci men Type: BLOOD SPECIMENOrdering Facility: [facility] Address: [address] [place], [place] [address] Performed By: #### 2 4323-8, 2771, ####[facility] LABCLIA [id number] [place] [id number] [place] Creatinine and Glomerular filtration rate.predicted panel (S/P/Bld) 90 mL/min/1.73m??? Normal >=60 [facility] Comment on above: Order Comment: Zay sandoval Type: BLOOD SPECIMENOrdering Facility: [facility] Address: [address] [place] [id number] Result Comment: Marlyn mated Glomerular Filtration Rate [...] GFR. Performed By: #### 2 4323-8, 2776-08, ####[facility] LABCLIA [id number] [place] [address] [place] Glucose [Mass/Vol] 132 mg/dL High 74-[address] [facility] Comment on above: Order Comment: Zay sandoval Type: BLOOD SPECIMENOrdering Facility: [facility] Address: [address] [place] [address] Result Comment: The [place] [employer] (ADA) provides guidance for cutoff [...] Standards of Medical Care in Diabetes 2016, [place] [employer]. Diabetes Care. 2016.39(Suppl 1). Performed By: #### 2 4323-8, 2777-, ####[facility] LABCLIA [id number] [place] [address] [place] Potassium [Moles/Vol] 4.1 mmol/L Normal 3.7-5.1 [facility] Comment on above: Order Comment: Speci men Type: BLOOD SPECIMENOrdering Facility: [facility] Address: [address] [place] [address] Performed By: #### 2 4323-8, 2776-08, ####[facility] LABCLIA [id number] [place] [address] [place] Protein [Mass/Vol] 6.2 g/dL Low 6.3-8.[address] [facility] Comment on above: Order Comment: Speci men Type: BLOOD SPECIMENOrdering Facility: [facility] Address: [address] [place] [address] Performed By: #### 2 4323-8, 2776-08, ####[facility] LABCLIA [id number] [place] [address] [place] Sodium [Moles/Vol] 139 mmol/L Normal 136-[address] [facility] Comment on above: Order Comment: Speci men Type: BLOOD SPECIMENOrdering Facility: [facility] Address: [address] [place] [address] Performed By: #### 2 4323-8, 2776-08, ####[facility] LABCLIA [id number] [place] [address] [place] Urea nitrogen [Mass/Vol] 9 mg/dL Normal 7-21 [facility] Comment on above: Order Comment: Speci men Type: BLOOD SPECIMENOrdering Facility: [facility] Address: [address] [place], [place] [address] Performed By: #### 2 4323-8, 2776-08, ####[facility] LABCLIA [id number] [address] [address] [place] Magnesium SerPl-mCncon 04-08 Magnesium [Mass/Vol] 1.9 mg/dL Normal 1.7-2.3 [facility] Comment on above: Order Comment: Speci men Type: BLOOD SPECIMENOrdering Facility: [facility] Address: [address] [place], [place] [phone] Performed By: #### 2 4323-8, 2777-1, ####[facility] LABCLIA [id number] [address] [place] NURSING PROGon 04-08-2023 NURSING PROG Normal [facility] Phosphate SerPl-mCncon 04-08 Phosphate [Mass/Vol] 3.8 mg/dL Normal 2.7-4.8 [facility] Comment on above: Order Comment: Speci men Type: BLOOD SPECIMENOrdering Facility: [facility] Address: [address] [place], [place] [phone] Performed By: #### 2 4323-8, 2776-08, ####[facility] LABCLIA [id number] [place] [address] [place] THERAPY NTon 04-08-2023 THERAPY NT Normal [facility] THERAPY NT Normal [facility] XR CHEST 1V FRONTAL PORTon 0 04-08-2023 XR CHEST 1V FRONTAL PORT Normal [facility] ANES POSTPROC EVALon 023 ANES POSTPROC EVAL Normal [facility] ANES PRE-OPon 04-07-2023 ANES PRE-OP Normal [facility] BRIEF OP NOTon 04-07-2023 BRIEF OP NOT Normal [facility] CONFIRM BLOOD TYPEon 023 ABO A Normal [facility] Comment on above: Order Comment: Speci men Type: BLOOD SPECIMENOrdering Facility: [facility] Address: [address] [place], [place] [phone] Performed By: #### C ONABO ####[facility] BLOOD BANKCLIA [id number] [address] [place] Rh Nom (Bld) Positive Normal [facility] Comment on above: Order Comment: Speci men Type: BLOOD SPECIMENOrdering Facility: [facility] Address: [address] [place] [address] Performed By: #### C ONABO ####[facility] BLOOD BANKCLIA [id number] [address] CYTOLOGY NON-GYNon CASE REPORT Normal [facility] Comment on above: Order Comment: Speci men Type: SPECIMEN OBTAINED BY LAVAGEOrdering Facility: [facility] Address: [address] [place] [address] Result Comment: [facility] Cytology Report Case: [id number] Provider: Eliot Castillo MD Collected: 04/07/2023 12:23 PMOrdering Location: Admitting Received: 04/07/2023 02:37 PMPathologist: Catina Pyle MDSpecimen: PELVIC WASHING Performed By: #### C YTONON ####[facility] LABCLIA [id number] [address] CLINICAL HISTORY Normal [facility] Comment on above: Order Comment: Speci men Type: SPECIMEN OBTAINED BY LAVAGEOrdering Facility: [facility] Address: [address] [place] [address] Result Comment: Pre- op diagnosis:Ovarian mass [N83.8]Preop examination [Z01.818] Performed By: #### C YTONON ####[facility] LABCLIA [id number] [address] FINAL DIAGNOSIS Normal [facility] Comment on above: Order Comment: Speci men Type: SPECIMEN OBTAINED BY LAVAGEOrdering Facility: [facility] Address: [address] [place] [address] Result Comment: A - PELVIC WASHING Negative for malignant cells.The following cell blocks were associated with this case:A1Cell Block, Alcohol Fixed Performed By: #### C YTONON ####[facility] LABCLIA [id number] [address] OF [facility] FINAL PERFORMING LAB Normal [facility] Comment on above: Order Comment: Speci men Type: SPECIMEN OBTAINED BY LAVAGEOrdering Facility: [facility] Address: [address] [place] [address] Result Comment: Tech nical component, tombstone carver screening performed at [facility], [facility] [place] [address] CLIA# [id number] interpretation performed at [facility], [facility] [place] [address] CLIA# [id number] Director: Antonio Esparza M.D. Performed By: #### C YTONON ####[facility] LABCLIA [id number] [address] GROSS DESCRIPTION Normal [facility] Comment on above: Order Comment: Speci men Type: SPECIMEN OBTAINED BY LAVAGEOrdering Facility: [facility] Address: [address] [place] [address] Result Comment: David. Doris RYAN [id number] cc cloudy red fluid with material. ThinPrep and Cell Block prepared. Performed By: #### C YTONON ####[facility] LABCLIA [id number] [address] OF [facility] OPERATIVE NOon 04-07-2023 OPERATIVE NO Normal [facility] SURGICAL PATHOLOGYon 023 CASE REPORT Normal [facility] Comment on above: Order Comment: Speci men Type: TISSUE SPECIMENOrdering Facility: [facility] Address: [address] [place] [address] Result Comment: Surg ica Pathology Report Case: [id number] Provider: Eliot Castillo MD Collected: 04/07/2023 12:27 [...] diaphram peritoneum biopsy Performed By: #### S ####[facility] LABCLIA [id number] [address] STATES OF [facility] CLINICAL HISTORY Normal [facility] Comment on above: Order Comment: Speci men Type: TISSUE SPECIMENOrdering Facility: [facility] Address: [address] [place] [address] Result Comment: Pre- op diagnosis:Ovarian mass [N83.8]Preop examination [Z01.818] Performed By: #### S ####[facility] LABCLIA [id number] [address] [place] DIAGNOSIS COMMENT Dr. Nicole fernandeze d selected slides from part A and agrees with the diagnosis. Normal [facility] Comment on above: Order Comment: Speci men Type: TISSUE SPECIMENOrdering Facility: [facility] Address: [address] [place] [address] Performed By: #### S ####[facility] LABCLIA [id number] [address] FINAL DIAGNOSIS Normal [facility] Comment on above: Order Comment: Speci men Type: TISSUE SPECIMENOrdering Facility: [facility] Address: [address] [place] [address] Result Comment: A. R ight ovary and [...] Benign fibroadipose tissue. Performed By: #### S ####[facility] LABCLIA [id number] [facility] [id number] [place] FINAL PERFORMING LAB Normal [facility] Comment on above: Order Comment: Speci men Type: TISSUE SPECIMENOrdering Facility: [facility] Address: [address] [place] [id number] Result Comment: Diag nostic interpretation performed at [facility], [address] [place] [address] CLIA# [id number] Director: Antonio Esparza M.D. Performed By: #### S ####[facility] LABCLIA [id number] [id number] [address] [place] GROSS DESCRIPTION Normal [facility] Comment on above: Order Comment: Speci men Type: TISSUE SPECIMENOrdering Facility: [facility] Address: [address] [place] [address] Result Comment: A. F ALLOPIAN TUBE AND [...] The external surface of the mass is zfu-skal-[id number] and smooth. Serial sectioning of the mass [...] the ovary ends and the solid mass begins.Dockworker sections are submitted as follows:A 2-11 personnel representative sections of massA 12-13 possible residual [id number] fallopian tube fimbriated end bisected and totally submitted with personnel representative cross-sectionMW 04/08/2023. UTERUS CERVIX WITH FALLOPIAN [...] with a crinkled appearance ovarian parenchyma is unremarkable.Dockworker sections are submitted as follows:B1 cervix 6:00B2 cervix 12:00B3 anterior uterine wallB4 posterior uterine wallB5 left ovaryB6 left fallopian tube fimbriated end bivalved and totally submitted and personnel representative cross-sectionMW 04/08/2023. PERITONEUM BIOPSYReceived fresh labeled [...] yellow-brown and lobulated. Sectioning reveals a unremarkable lumen.Dockworker sections are submitted as follows:M1 inked proximal resection margin and mesoappendiceal resection marginM2 entire distal tip, bisected and central cross-sections through lumenGross examination performed at [facility] [address] [facility], [place] [address] CLIA# [id number] 04/07/23 3:59 PMN. OMENTUM RESECTIONReceived fresh, labeled omentum resection is an unoriented, lobulated portion of adipose tissue, consistent with omentum, measuring 25.0 x 15.0 x 0.6 cm. Sectioning reveals soft, de souza, homogenous cut surfaces consisting entirely of adipose tissue. Dockworker sections are submitted in cassettes N1-N6.AKA April 07, 2023 2:53 PMGross examination performed at [facility], [address] [place], [place] [address]O. PERITONEUM BIOPSYReceived fresh labeled right diaphragm peritoneum biopsy irregular segment of de souza-pink membranous soft tissue measuring 0.3 x 0.2 x 0.1 cm. Specimen is entirely submitted in O1.[place] [address] CLIA# [id number] 04/07/23 3:55 PM Performed By: #### S ####[place] [id number] [address] [place] INTRAOPERATIVE DIAGNOSIS Normal [facility] Comment on above: Order Comment: Speci men Type: TISSUE SPECIMENOrdering Facility: [facility] Address: [address] [place] [address] Result Comment: A. 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 Juanito Will).Intraoperative diagnosis performed at [facility], [address] [place], [place] [address]. UTERUS CERVIX WITH FALLOPIAN TUBE AND OVARY LEFTFrozen section cancelled per Dr. Juanito Will. Grossly normal endometrium. Discussed with Dr. Castillo.Intraoperative diagnosis performed at [place] [address] Performed By: #### S ####[place] [id number] [address] [place] SYNOPTIC REPORT Normal [facility] Comment on above: Order Comment: Speci men Type: TISSUE SPECIMENOrdering Facility: [facility] Address: [address] [place] [address] Result Comment: OVAR Y or FALLOPIAN TUBE or PRIMARY PERITONEUMOVARY OR FALLOPIAN TUBE OR PRIMARY PERITONEUM: RESECTION - All Hubqohgaz7yd Edition - Protocol posted: 10/28/2022SPECIMEN Procedure: Total [...] pathology report. pT Category: pT1c2 pN Category: [id number] STAGE FIGO Stage: IC2 Performed By: #### S ####[facility] [id number] [place] [address] [place] CNPNon 04-06-2023 CNPN Normal [facility] HISTORY PHYSICALon 3 HISTORY PHYSICAL Normal [facility] 03-24-2023 CNPN Telephone (AGCARDPOB ) ----- STEFANO WASHINGTON ([id number]) 1940 F Date Time Provider Department 03/24/23 DARI ARRIAGA During your visit today, we recorded the following information about you: Nanci Calloway 03/24/2023 2:37 PM Signed Received CC [facility] but patient will be receiving services elsewhere [...] Encounter Status:Closed by NANCI CALLOWAY on 03/24/23 [facility] ECG COMPLETEon 03-22-2023 Atrial Rate [address] [facility] Calculated P [place] 39 degrees [facility] Calculated R [place] 114 degrees [facility] Calculated T [place] 6 degrees [facility] P-R Interval [address] [facility] QRS Duration [address] [facility] QT Interval [address] [facility] QTC Calculation (Bazett) [address] [facility] Ventricular Rate 100 BPM [facility] CNPNon 03-16-2023 CNPN Normal [facility] CNCOon 03-10-2023 CNCO Letter Text Normal [facility] CNPNon 03-10-2023 CNPN Normal [facility] CT ABD/PEL W IVCONon 023 Radiology Result ACTIONABLE Abnormal [facility] CT ABD/PEL W IVCON Invalid Interpretation Code [facility] CNPNon 02-26-2023 CNPN Normal [facility] CNPNon 02-02-2023 CNPN Normal [facility] CNTHERAPYon 02-02-2023 CNTHERAPY Normal [facility] XR Lumbar spine 3 Viewson IMPRESSION: 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 COMPRESSION FRACTURE OF THE T11 VERTEBRAL BODY. Imaging Engineer: PSCB Transcribe Date/Time: Jan 30 2023 1:51P Dictated by : CHRISTOPHER GIRALDO MD This examination was interpreted and the report reviewed and electronically signed by: CHRISTOPHER GIRALDO MD on Jan 30 2023 1:56PM [facility] DIVISION OF RADIOLOGY * * *Final Report* [...] COMPRESSION FRACTURE OF THE T11 VERTEBRAL BODY. Imaging Engineer: IVONNE Transcribe Date/Time: Jan 30 2023 1:51P Dictated by : CHRISTOPHER GIRALDO MD This examination was interpreted and the report reviewed and electronically signed by: CHRISTOPHER GIRALDO MD on Jan 30 2023 1:56PM EST [facility] XR Lumbar spine 3 ViewsOrder ed By: Ccf Provider on 01-30-[address] [facility] CNOVon 01-27-2023 CNOV Normal [facility] CNPNon 01-27-2023 CNPN Normal [facility] XR LUMBAR 3V AP/LAT/L5-S1on 01-27-2023 XR LUMBAR 3V AP/LAT/L5-S1 Normal [facility] XR LUMBAR GENERAL 3V AP/LAT/ L5-S1on 01-27-[address] [facility] XR Lumbar spine 3 Viewson Radiology Study observation (narrative) [facility] Bacteria Ur Culton 3 Bacteria identified Cx Nom (U) Normal [facility] Comment on above: Performed By: #### 6 30-4 ####[facility] LABCLIA [id number] [address] [place] CNPNon 01-25-2023 CNPN Normal [facility] XR Chest PA and Lateralon IMPRESSION: 1. No pleural effusion or consolidation 2. Large hiatal hernia Imaging Engineer: IVONNE Transcribe Date/Time: Jul 20 2022 8:31A Dictated by : JANAY DESAI MD This examination was interpreted and the report reviewed and electronically signed by: JANAY DESAI MD on Jul 20 2022 8:32AM [facility] DIVISION OF RADIOLOGY * * *Final Report* [...] Large hiatal hernia. DIVISION OF RADIOLOGY Provider, [facility] - 07/20/2022 * * *Final Report* * [...] effusion or consolidation 2. Large hiatal hernia Imaging Engineer: IVONNE Transcribe Date/Time: Jul 20 2022 8:31A Dictated by : JANAY DESAI MD This examination was interpreted and the report reviewed and electronically signed by: JANAY DESAI MD on Jul 20 2022 8:32AM EST [facility] Radiology Study observation (narrative) [facility] XR Chest PA and LateralOrder ed By: Ccf Provider on 07-20-[address] [facility] LIPID PANEL, NONFASTINGon Cholesterol [Mass/Vol] 238 mg/dL High <200 mg/dL [facility] HDL Cholesterol, Nonfasting 64 mg/dL >39 mg/dL [facility] LDL Cholesterol, Nonfasting 127 mg/dL High <100 mg/dL [place] LDL/HDL Ratio, Nonfasting 1.98 mg/dL <2.54 mg/dL [facility] Non HDL Cholesterol, Nonfasting 174 mg/dL High <130 mg/dL [facility] Total Chol/HDL Ratio, Nonfasting 3.72 mg/dL <5.10 mg/dL [facility] Triglycerides, Nonfasting 235 mg/dL High <150 mg/dL [facility] VLDL Cholesterol, Nonfasting 47 mg/dL High <30 mg/dL [facility] TSH BLDon 06-27-2022 TSH Qn 3.260 m[IU]/L 0.270 - 4.200 mIU/L [facility] Urinalysis complete panel (U )on 12-13-2021 Bilirubin Ql (U) Negative Negative [facility] Clarity (Unsp spec) Clear Clear [facility] Color (U) Light Yellow Yellow [facility] Epithelial cells LM.HPF (Urine sed) [#/Area] Few [facility] Glucose Test strip (U) [Mass/Vol] Negative Negative [facility] Hemoglobin Ql (U) Negative Negative [facility] Ketones Ql (U) Negative Negative [facility] Leukocyte esterase Test strip Ql (U) Negative Negative [facility] Nitrite Ql (U) Negative Negative [facility] pH (U) 6.0 [pH] 5.0 - 8.[address] [facility] Protein (U) [Mass/Vol] Negative Negative Cl [facility] RBC LM.HPF (Urine sed) [#/Area] 0-3 /HPF 0-3 /HPF [facility] Specific gravity (U) [Rel density] 1.006 1.005 - 1.[address] [facility] Urobilinogen Ql (U) Negative Negative [facility] WBC LM.HPF (Urine sed) [#/Area] 0-5 /HPF 0-5 /HPF [facility] CBC W Auto Differential pane l (Bld)on 12-12-2021 Abs Immature Gran <0.03 <0.10 k/uL [facility] Basophils (Bld) [#/Vol] 0.06 10*3/uL <0.11 k/uL [facility] Basophils/100 WBC (Bld) 1.2 % [facility] Differential cell count method Nom (Bld) Auto [facility] Eosinophils (Bld) [#/Vol] 0.13 10*3/uL <0.46 k/uL [facility] Eosinophils/100 WBC (Bld) 2.6 % [facility] Erythrocyte distribution width (RBC) [Ratio] 14.2 % 11.5 - 15.0 % [facility] Hematocrit (Bld) [Volume fraction] 39.6 % 36.0 - 46.0 % [facility] Hemoglobin (Bld) [Mass/Vol] 12.6 g/dL 11.5 - 15.5 g/dL [facility] Immature Gran % 0.4 % [facility] Lymphocytes (Bld) [#/Vol] 1.67 10*3/uL 1.00 - 4.00 k/uL [facility] Lymphocytes/100 WBC (Bld) 33.7 % [facility] MCH (RBC) [Entitic mass] 31.0 pg 26.0 - 34.[address] [facility] MCHC (RBC) [Mass/Vol] 31.8 g/dL 30.5 - 36.0 g/dL [facility] MCV (RBC) [Entitic vol] 97.5 fL 80.0 - 100.[address] [facility] Monocytes (Bld) [#/Vol] 0.42 10*3/uL <0.87 k/uL [facility] Monocytes/100 WBC (Bld) 8.5 % [facility] Neutrophils (Bld) [#/Vol] 2.65 10*3/uL 1.45 - 7.50 k/uL [facility] Neutrophils/100 WBC (Bld) 53.6 % [facility] Nucleated RBC (Bld) [#/Vol] 10*3/uL <0.01 k/uL [facility] Nucleated RBC/100 WBC (Bld) [Ratio] 0.0 /[address] [facility] Platelet mean volume (Bld) [Entitic vol] 10.9 fL 9.0 - 12.[address] [facility] Platelets (Bld) [#/Vol] 239 10*3/uL 150 - 400 k/uL [facility] RBC (Bld) [#/Vol] 4.06 10*6/uL 3.90 - 5.20 m/uL [facility] WBC (Bld) [#/Vol] 4.95 10*3/uL 3.70 - 11.00 k/uL [facility] Comprehensive metabolic 2000 panelon 12-12-2021 Albumin [Mass/Vol] 4.7 g/dL 3.9 - 4.9 g/dL [facility] ALP [Catalytic activity/Vol] 66 U/L 34 - 123 U/L [facility] ALT [Catalytic activity/Vol] 19 U/L 7 - 38 U/L [facility] Anion gap [Moles/Vol] 12 mmol/L 9 - 18 mmol/L [facility] AST [Catalytic activity/Vol] 30 U/L 13 - 35 U/L [facility] Bilirubin [Mass/Vol] 0.4 mg/dL 0.2 - 1 .3 mg/dL [facility] Calcium [Mass/Vol] 9.8 mg/dL 8.5 - 10. 2 mg/dL [facility] Chloride [Moles/Vol] 102 mmol/L 97 - 10 5 mmol/L [facility] CO2 [Moles/Vol] 26 mmol/L 22 - 30 mmol/L [facility] Creatinine [Mass/Vol] 0.65 mg/dL 0.58 - 0.96 mg/dL [facility] Estimated Glomerular Filtration Rate 88 mL/min/1.73m >=60 mL/min/1.[address] [facility] Glucose [Mass/Vol] 102 mg/dL High 74 - 99 mg/dL [facility] Potassium [Moles/Vol] 4.8 mmol/L 3.7 - 5.1 mmol/L [facility] Protein [Mass/Vol] 7.8 g/dL 6.3 - 8.0 g/dL [facility] Sodium [Moles/Vol] 140 mmol/L 136 - 144 mmol/L [facility] Urea nitrogen [Mass/Vol] 13 mg/dL 7 - 21 mg/dL [facility] LIPID PANEL, NONFASTINGon Cholesterol [Mass/Vol] 239 mg/dL High <200 mg/dL Cl [facility] HDL Cholesterol, Nonfasting 52 mg/dL >39 mg/dL [facility] LDL Cholesterol, Nonfasting 140 mg/dL High <100 mg/dL [facility] LDL/HDL Ratio, Nonfasting 2.69 mg/dL High <2.54 mg/dL [facility] Non HDL Cholesterol, Nonfasting 187 mg/dL High <130 mg/dL [facility] Total Chol/HDL Ratio, Nonfasting 4.60 mg/dL <5.10 mg/dL [facility] Triglycerides, Nonfasting 233 mg/dL High <150 mg/dL [facility] VLDL Cholesterol, Nonfasting 47 mg/dL High <30 mg/dL [facility] TSH BLDon 12-12-2021 TSH Qn 2.980 m[IU]/L 0.270 - 4.200 mIU/L [facility] Vital Signs Date Time Vital Sign Value Performing Clinician Facility 02-14-2024 14:31-0400 Blood Pressure Cuff Size ANNELIESE [facility] [employer] [facility] 02-14-2024 14:31-0400 Blood Pressure Location ANNELIESE [employer] [facility] 02-14-2024 14:31-0400 Blood Pressure Method ANNELIESE [employer] [address] [place] [address] 02-14-2024 14:31-0400 Body temperature 98.24 [degF] ANNELIESE [employer] [facility] 02-14-2024 14:31-0400 Diastolic Blood Pressure Non-Invasive 55 mm[Hg] ANNELIESE [employer] [facility] 02-14-2024 14:31-0400 Heart rate 83 /min ANNELIESE [employer] [facility] 02-14-2024 14:31-0400 Reason For Taking VItal Signs ANNELIESE [employer] [facility] 02-14-2024 14:31-0400 Respiratory rate 20 /min ANNELIESE [employer] [facility] 02-14-2024 14:31-0400 Systolic Blood Pressure Non-Invasive 120 mm[Hg] ANNELIESE [employer] [facility] 02-14-2024 07:21-0400 Blood Pressure Cuff Size ANNELIESE PLUNK DO [facility] 02-14-2024 07:21-0400 Blood Pressure Location ANNELIESE PLCiklum DO [facility] 02-14-2024 07:21-0400 Blood Pressure Method ANNELIESE [facility]Indi[facility] 02-14-2024 07:21-0400 Body temperature 97.34 [degF] ANNELIESE PLCiklum DO [address] [place] [address] 02-14-2024 07:21-0400 Diastolic Blood Pressure Non-Invasive 42 mm[Hg] ANNELIESE [facility]di[facility] 02-14-2024 07:21-0400 Heart rate 64 /min ANNELIESE [facility] [address] [place] [address] 02-14-2024 07:21-0400 Reason For Taking VItal Signs ANNELIESE [facility] [address] [place] [address] 02-14-2024 07:21-0400 Respiratory rate 20 /min ANNELIESE [facility] [address] [place] [address] 02-14-2024 07:21-0400 Systolic Blood Pressure Non-Invasive 111 mm[Hg] ANNELIESE [facility] [address] [place] [address] 02-13-2024 21:27-0400 Body temperature 98.42 [degF] ANNELIESE PLUNK DO [address] [place] [address] 02-13-2024 21:27-0400 Diastolic Blood Pressure Non-Invasive 47 mm[Hg] ANNELIESE [facility] [address] [place] [address] 02-13-2024 21:27-0400 Heart rate 74 /min ANNELIESE [facility] [address] [place] [address] 02-13-2024 21:27-0400 Reason For Taking VItal Signs ANNELIESE [facility] [address] [place] [address] 02-13-2024 21:27-0400 Respiratory rate 20 /min ANNELIESE PLUNK DO [facility] 02-13-2024 21:27-0400 Systolic Blood Pressure Non-Invasive 120 mm[Hg] ANNELIESE PLUNK DO [facility] 02-13-2024 14:50-0400 Blood Pressure Cuff Size ANNELIESE PLUNK DO [address] [place] [address] 02-13-2024 14:50-0400 Blood Pressure Location ANNELIESE PLUNK DO [address] [place] [address] 02-13-2024 14:50-0400 Blood Pressure Method ANNELIESE PLUNK DO [address] [place] [address] 02-08-2024 22:20-0400 Heart rate 82 /min ANNELIESE PLUNK DO [address] [place] [address] 02-07-2024 22:08-0400 Heart rate 70 /min ANNELIESE PLUNK DO [address] [place] [address] 02-07-2024 14:57-0400 Heart rate 70 /min ANNELIESE PLUNK DO [address] [place] [address] 02-05-2024 07:36-0400 Heart rate 65 /min ANNELIESE PLUNK DO [address] [place] [address] 02-05-2024 02:51-0400 Body height 152.4 cm ANNELIESE PLUNK DO [address] [place] [address] 02-05-2024 02:51-0400 Body weight 76.8 kg ANNELIESE PLUNK DO [address] [place] [address] 02-05-2024 02:51-0400 Body weight 33.07 kg/m2 ANNELIESE PLUNK DO [address] [place] [address] 02-05-2024 02:10-0400 Body height 152.4 cm ANNELIESE PLUNK DO [address] [place] [address] 02-05-2024 02:10-0400 Body weight 76.8 kg ANNELIESE PLUNK DO [address] [place] [address] 02-05-2024 02:10-0400 Body weight 33.07 kg/m2 ANNELIESE PLUNK DO [facility] 02-05-2024 01:51-0400 Heart rate 66 /min ANNELIESE SAHNIUNK DO [facility] 02-05-2024 01:51-0400 Mean blood pressure 79 mm[Hg] ANNELIESE CHAIREZ DO [facility] 02-04-2024 23:33-0400 Body temperature 98.42 [degF] STEFANOCOLTON BUTTNEN SENIOR ORACLE APPLICATIONS DEVELOPER-ASSISTANT ENGINEER [facility] 02-04-2024 23:33-0400 Diastolic Blood Pressure Non-Invasive 54 mm[Hg] STEFANO FILOMENAELGIN SENIOR ORACLE APPLICATIONS DEVELOPER-ASSISTANT ENGINEER [facility] 02-04-2024 23:33-0400 Heart rate 63 /min STEFANO FILOMENAELGIN SENIOR ORACLE APPLICATIONS DEVELOPER-ASSISTANT ENGINEER [facility] 02-04-2024 23:33-0400 Respiratory rate 16 /min STEFANOCOLTON BUTTELGIN SENIOR ORACLE APPLICATIONS DEVELOPER-ASSISTANT ENGINEER [facility] 02-04-2024 23:33-0400 Systolic Blood Pressure Non-Invasive 121 mm[Hg] STEFANO FILOMENANEN SENIOR ORACLE APPLICATIONS DEVELOPER-ASSISTANT ENGINEER [facility] 02-04-2024 20:11-0400 Body temperature 98.24 [degF] STEFANO FILOMENAELGIN SENIOR ORACLE APPLICATIONS DEVELOPER-ASSISTANT ENGINEER [facility] 02-04-2024 20:11-0400 Diastolic Blood Pressure Non-Invasive 67 mm[Hg] STEFANO FILOMENAELGIN SENIOR ORACLE APPLICATIONS DEVELOPER-ASSISTANT ENGINEER [facility] 02-04-2024 20:11-0400 Heart rate 77 /min STEFANO FILOMENAELGIN SENIOR ORACLE APPLICATIONS DEVELOPER-ASSISTANT ENGINEER [facility] 02-04-2024 20:11-0400 Respiratory rate 16 /min STEFANOCOLTON GRAHAM SENIOR ORACLE APPLICATIONS DEVELOPER-ASSISTANT ENGINEER [facility] 02-04-2024 20:11-0400 Systolic Blood Pressure Non-Invasive 94 mm[Hg] STEFANO GRAHAM SENIOR ORACLE APPLICATIONS DEVELOPER-ASSISTANT ENGINEER [facility] 02-04-2024 15:40-0400 Body temperature 98.06 [degF] STEFANO GRAHAM SENIOR ORACLE APPLICATIONS DEVELOPER-ASSISTANT ENGINEER [facility] 02-04-2024 15:40-0400 Diastolic Blood Pressure Non-Invasive 61 mm[Hg] STEFANO CHRISDayne SENIOR ORACLE APPLICATIONS DEVELOPER-ASSISTANT ENGINEER [facility] 02-04-2024 15:40-0400 Heart rate 88 /min STEFANO CHRISDayne SENIOR ORACLE APPLICATIONS DEVELOPER-ASSISTANT ENGINEER [facility] 02-04-2024 15:40-0400 Respiratory rate 16 /min STEFANO GRAHAM SENIOR ORACLE APPLICATIONS DEVELOPER-ASSISTANT ENGINEER [facility] 02-04-2024 15:40-0400 Systolic Blood Pressure Non-Invasive 127 mm[Hg] STEFANO GRAHAM SENIOR ORACLE APPLICATIONS DEVELOPER-ASSISTANT ENGINEER [facility] 02-04-2024 09:24-0400 Blood Pressure Cuff Size STEFANO CHRISDayne SENIOR ORACLE APPLICATIONS DEVELOPER-ASSISTANT ENGINEER [facility] 02-04-2024 09:24-0400 Blood Pressure Location STEFANO GRAHAM SENIOR ORACLE APPLICATIONS DEVELOPER-ASSISTANT ENGINEER [facility] 02-04-2024 09:24-0400 Blood Pressure Method STEFANO CHRISDayne SENIOR ORACLE APPLICATIONS DEVELOPER-ASSISTANT ENGINEER [facility] 02-04-2024 07:45-0400 Blood Pressure Cuff Size STEFANO CHRISDayne SENIOR ORACLE APPLICATIONS DEVELOPER-ASSISTANT ENGINEER [facility] 02-04-2024 07:45-0400 Blood Pressure Location STEFANO CHRISN SENIOR ORACLE APPLICATIONS DEVELOPER-ASSISTANT ENGINEER [facility] 02-04-2024 07:45-0400 Blood Pressure Method STEFANO GRAHAM SENIOR ORACLE APPLICATIONS DEVELOPER-ASSISTANT ENGINEER [facility] 02-03-2024 03:15-0400 Heart rate 66 /min STEFANO CHRISN SENIOR ORACLE APPLICATIONS DEVELOPER-ASSISTANT ENGINEER [facility] 02-02-2024 23:09-0400 Heart rate 65 /min STEFANO CHRISN SENIOR ORACLE APPLICATIONS DEVELOPER-ASSISTANT ENGINEER [facility] 02-02-2024 18:45-0400 Heart rate 82 /min STEFANOCOLTON CHRISN SENIOR ORACLE APPLICATIONS DEVELOPER-ASSISTANT ENGINEER [facility] 02-01-2024 12:41-0400 Body height 152.4 cm STEFANO CHRISN SENIOR ORACLE APPLICATIONS DEVELOPER-ASSISTANT ENGINEER [facility] 02-01-2024 12:41-0400 Body weight 76.2 kg STEFANOCOLTON CHRISN SENIOR ORACLE APPLICATIONS DEVELOPER-ASSISTANT ENGINEER [facility] 02-01-2024 12:41-0400 Body weight 32.81 kg/m2 STEFANOCOLTON CHRISN SENIOR ORACLE APPLICATIONS DEVELOPER-ASSISTANT ENGINEER [facility] 02-01-2024 12:23-0400 Body height 152.4 cm STEFANO CHRISN SENIOR ORACLE APPLICATIONS DEVELOPER-ASSISTANT ENGINEER [facility] 02-01-2024 12:23-0400 Body weight 76.2 kg STEFANOCOLTON CHRISN SENIOR ORACLE APPLICATIONS DEVELOPER-ASSISTANT ENGINEER [facility] 02-01-2024 12:23-0400 Body weight 32.81 kg/m2 STEFANOCOLTON CHRISN SENIOR ORACLE APPLICATIONS DEVELOPER-ASSISTANT ENGINEER [facility] 02-01-2024 07:01-0400 Body temperature 97.7 [degF] USMAN CHILDS MD FACP [facility] 02-01-2024 07:01-0400 Diastolic Blood Pressure Non-Invasive 60 mm[Hg] USMAN CHILDS MD FACP [facility] 02-01-2024 07:01-0400 Heart rate 82 /min USMAN CHILDS MD FACP [facility] 02-01-2024 07:01-0400 Respiratory rate 20 /min USMAN CHILDS MD FACP [facility] 02-01-2024 07:01-0400 Systolic Blood Pressure Non-Invasive 117 mm[Hg] USMAN CHILDS MD FACP [facility] 01-31-2024 20:07-0400 Body temperature 97.88 [degF] USMAN CHILDS MD FACP [facility] 01-31-2024 20:07-0400 Diastolic Blood Pressure Non-Invasive 61 mm[Hg] USMAN CHILDS MD FACP [facility] 01-31-2024 20:07-0400 Heart rate 85 /min USMAN CHILDS MD FACP [facility] 01-31-2024 20:07-0400 Respiratory rate 20 /min USMAN CHILDS MD FACP [facility] 01-31-2024 20:07-0400 Systolic Blood Pressure Non-Invasive 103 mm[Hg] USMAN CHILDS MD FACP [facility] 01-31-2024 11:05-0400 Heart rate 85 /min USMAN CHILDS MD FACP [facility] 01-31-2024 08:30-0400 Body temperature 98.6 [degF] USMAN CHILDS MD FACP [facility] 01-31-2024 07:29-0400 Diastolic Blood Pressure Non-Invasive 51 mm[Hg] USMAN CHILDS MD FACP [facility] 01-31-2024 07:29-0400 Respiratory rate 20 /min USMAN CHILDS MD FACP [facility] 01-31-2024 07:29-0400 Systolic Blood Pressure Non-Invasive 111 mm[Hg] USMAN CHILDS MD FACP [facility] 01-30-2024 07:54-0400 Heart rate 98 /min USMAN CHILDS MD FACP [facility] 01-29-2024 19:38-0400 Reason For Taking VItal Signs USMAN CHILDS MD FACP [facility] 01-29-2024 13:15-0400 Heart rate 94 /min USMAN CHILDS MD FACP [facility] 01-29-2024 09:19-0400 Heart rate 67 /min USMAN CHILDS MD FACP [facility] 01-28-2024 19:14-0400 Reason For Taking VItal Signs USMAN CHILDS MD FACP [facility] 01-27-2024 19:35-0400 Heart rate 78 /min USMAN CHILDS MD FACP [facility] 01-26-2024 20:05-0400 Heart rate 84 /min USMAN CHILDS MD FACP [facility] 01-25-2024 19:58-0400 Heart rate 78 /min USMAN CHILDS MD FACP [facility] 01-22-2024 17:48-0400 Body height 152.4 cm USMAN CHILDS MD FACP [facility] 01-22-2024 17:48-0400 Body weight 76.2 kg USMAN CHILDS MD FACP [facility] 01-22-2024 17:48-0400 Body weight 32.81 kg/m2 USMAN CHILDS MD FACP [facility] 12-13-2023 12:48-0400 Body mass index (BMI) [Ratio] 33.45 kg/m2 Ester Suppan SENIOR ORACLE APPLICATIONS DEVELOPER.TELEGRAPH OPERATOR Work Phone: [facility] 12-13-2023 12:48-0400 Body weight 78.29 kg Ester Suppan SENIOR ORACLE APPLICATIONS DEVELOPER.TELEGRAPH OPERATOR Work Phone: [facility] 12-13-2023 12:48-0400 Diastolic blood pressure 66 mm[Hg] Ester Suppan SENIOR ORACLE APPLICATIONS DEVELOPER.TELEGRAPH OPERATOR Work Phone: [facility] 12-13-2023 12:48-0400 Heart rate 60 /min Ester Suppan SENIOR ORACLE APPLICATIONS DEVELOPER.TELEGRAPH OPERATOR Work Phone: [facility] 12-13-2023 12:48-0400 Respiratory rate 20 /min Ester Suppan SENIOR ORACLE APPLICATIONS DEVELOPER.TELEGRAPH OPERATOR Work Phone: [facility] 12-13-2023 12:48-0400 SaO2% (BldA) [Mass fraction] 98 % Ester Suppan SENIOR ORACLE APPLICATIONS DEVELOPER.TELEGRAPH OPERATOR Work Phone: [facility] 12-13-2023 12:48-0400 Systolic blood pressure 100 mm[Hg] Ester Suppan SENIOR ORACLE APPLICATIONS DEVELOPER.TELEGRAPH OPERATOR Work Phone: [facility] 12-11-2023 07:56-0400 Diastolic Blood Pressure Non-Invasive 64 mm[Hg] USMAN CHILDS MD FACP [facility] 12-11-2023 07:56-0400 Systolic Blood Pressure Non-Invasive 120 mm[Hg] USMAN CHILDS MD FACP [facility] 12-11-2023 06:47-0400 Body temperature 97.88 [degF] USMAN CHILDS MD FACP [facility] 12-11-2023 06:47-0400 Diastolic Blood Pressure Non-Invasive 60 mm[Hg] USMAN CHILDS MD FACP [facility] 12-11-2023 06:47-0400 Heart rate 87 /min USMAN CHILDS MD FACP [facility] 12-11-2023 06:47-0400 Reason For Taking VItal Signs USMAN CHILDS MD FACP [facility] 12-11-2023 06:47-0400 Respiratory rate 18 /min USMAN CHILDS MD FACP [facility] 12-11-2023 06:47-0400 Systolic Blood Pressure Non-Invasive 117 mm[Hg] USMAN CHILDS MD FACP [facility] 12-10-2023 19:44-0400 Body temperature 97.7 [degF] USMAN CHILDS MD FACP [facility] 12-10-2023 19:44-0400 Diastolic Blood Pressure Non-Invasive 57 mm[Hg] USMAN CHILDS MD FACP [facility] 12-10-2023 19:44-0400 Heart rate 85 /min USMAN CHILDS MD FACP [facility] 12-10-2023 19:44-0400 Reason For Taking VItal Signs USMAN CHILDS MD FACP [facility] 12-10-2023 19:44-0400 Respiratory rate 18 /min USMAN CHILDS MD FACP [facility] 12-10-2023 19:44-0400 Systolic Blood Pressure Non-Invasive 110 mm[Hg] USMAN CHILDS MD FACP [facility] 12-10-2023 06:10-0400 Body temperature 97.7 [degF] USMAN CHILDS MD FACP [facility] 12-10-2023 06:10-0400 Heart rate 84 /min USMAN CHILDS MD FACP [facility] 12-10-2023 06:10-0400 Reason For Taking VItal Signs USMAN CHILDS MD FACP [facility] 12-10-2023 06:10-0400 Respiratory rate 18 /min USMAN CHILDS MD FACP [facility] 12-09-2023 20:06-0400 Heart rate 84 /min USMAN CHILDS MD FACP [facility] 12-07-2023 19:37-0400 Heart rate 78 /min USMAN CHILDS MD FACP [facility] 12-06-2023 19:42-0400 Heart rate 84 /min USMAN CHILDS MD FACP [facility] 12-06-2023 11:25-0400 Body weight 79.09 kg USMAN CHILDS MD FACP [facility] 12-06-2023 07:00-0400 Heart rate 83 /min USMAN CHILDS MD FACP [facility] 12-04-2023 20:19-0400 Heart rate 92 /min USMAN CHILDS MD FACP [facility] 11-30-2023 06:24-0400 Body weight 80.6 kg USMAN CHILDS MD FACP [facility] 11-26-2023 21:19-0400 Body height 152.4 cm USMAN CHILDS MD FACP [facility] 11-26-2023 21:19-0400 Body weight 80.6 kg USMAN CHILDS MD FACP [facility] 11-26-2023 21:19-0400 Body weight 34.7 kg/m2 USMAN CHILDS MD FACP [facility] 11-26-2023 20:37-0400 Body temperature 98.8 [degF] Dr. Carl Encarnacion Work Phone: [facility] 11-26-2023 20:37-0400 Diastolic blood pressure 72 mm[Hg] Dr. Carl Encarnacion Work Phone: [facility] 11-26-2023 20:37-0400 Heart rate 115 /min Dr. Carl Encarnacion Work Phone: [facility] 11-26-2023 20:37-0400 Respiratory rate 18 /min Dr. Carl Encarnacion Work Phone: [facility] 11-26-2023 20:37-0400 SaO2% (BldA) [Mass fraction] 97 % Dr. Carl Encarnacion Work Phone: [facility] 11-26-2023 20:37-0400 Systolic blood pressure 139 mm[Hg] Dr. Carl Encarnacion Work Phone: [facility] 11-23-2023 12:51-0400 Body height 152.[address] Carl Encarnacion Work Phone: [facility] 11-23-2023 12:51-0400 Body mass index (BMI) [Ratio] 34.3 kg/m2 Dr. Carl Encarnacion Work Phone: [facility] 11-23-2023 12:51-0400 Body weight 79.[address] Carl Encarnacion Work Phone: [facility] 11-23-2023 11:58-0400 Diastolic blood pressure 102 mm[Hg] [facility] 11-23-2023 11:58-0400 Heart rate 96 /min [facility] 11-23-2023 11:58-0400 Respiratory rate 20 /min [facility] 11-23-2023 11:58-0400 SaO2% (BldA) [Mass fraction] 95 % [facility] 11-23-2023 11:58-0400 Systolic blood pressure 120 mm[Hg] [facility] 11-23-2023 11:49-0400 Body temperature 98 [degF] [facility] 11-23-2023 08:07-0400 Body height 152.4 cm [facility] 11-23-2023 08:07-0400 Body mass index (BMI) [Ratio] 36.3 kg/m2 [facility] 11-23-2023 08:07-0400 Body weight 84.3 kg [facility] 07-26-2023 11:33-0500 Body temperature 98.1 [degF] Prosper Amador Work Phone: [facility] 07-26-2023 11:33-0500 Body weight 73.94 kg Prosperlove Amador Work Phone: [facility] 07-26-2023 11:33-0500 Diastolic blood pressure 69 mm[Hg] Prosper Amador Work Phone: [facility] 07-26-2023 11:33-0500 Heart rate 106 /min Prosper Amador Work Phone: [facility] 07-26-2023 11:33-0500 SaO2% (BldA) [Mass fraction] 98 % Prosper Amador Work Phone: [facility] 07-26-2023 11:33-0500 Systolic blood pressure 142 mm[Hg] Prosperlove Amador Work Phone: [facility] 07-07-2023 08:34-0500 Body height 153 cm Wilmar Masci DO Work Phone: [facility] 07-07-2023 08:34-0500 Body temperature 98.8 [degF] Wilmar Masci DO Work Phone: [facility] 07-07-2023 08:34-0500 Body weight 75.3 kg Wilmar Masci DO Work Phone: [facility] 07-07-2023 08:34-0500 Diastolic blood pressure 84 mm[Hg] Wilmar Masci DO Work Phone: [facility] 07-07-2023 08:34-0500 Heart rate 92 /min Wilmar Masci DO Work Phone: [facility] 07-07-2023 08:34-0500 SaO2% (BldA) [Mass fraction] 98 % Wilmar Masci DO Work Phone: [facility] 07-07-2023 08:34-0500 Systolic blood pressure 150 mm[Hg] Wilmar Masci DO Work Phone: [facility] 06-02-2023 13:59-0400 Body temperature 97.9 [degF] Wilmar Masci DO Work Phone: [facility] 06-02-2023 13:59-0400 Body weight 73.48 kg Wilmar Masci DO Work Phone: [facility] 06-02-2023 13:59-0400 Diastolic blood pressure 71 mm[Hg] Wilmar Masci DO Work Phone: [facility] 06-02-2023 13:59-0400 Heart rate 96 /min Wilmar Masci DO Work Phone: [facility] 06-02-2023 13:59-0400 SaO2% (BldA) [Mass fraction] 97 % Wilmar Masci DO Work Phone: [facility] 06-02-2023 13:59-0400 Systolic blood pressure 121 mm[Hg] Wilmar Forbes DO Work Phone: [facility] 05-03-2023 15:18-0400 Body temperature 97.5 [degF] Eliot Castillo MD Work Phone: [facility] 05-03-2023 15:18-0400 Body weight 72.94 kg Eliot Castillo MD Work Phone: [facility] 05-03-2023 15:18-0400 Diastolic blood pressure 66 mm[Hg] Eliot Castillo MD Work Phone: [facility] 05-03-2023 15:18-0400 Heart rate 93 /min Eliot Castillo MD Work Phone: [facility] 05-03-2023 15:18-0400 Systolic blood pressure 144 mm[Hg] Eliot Castillo MD Work Phone: [facility] 04-06-2023 14:45-0400 Body height 156 cm [facility] 04-06-2023 14:45-0400 Body weight 72.58 kg [facility] 01-27-2023 10:22-0400 Body temperature 98.29 [degF] Kristen Eugene PA-C Work Phone: [facility] 01-27-2023 10:22-0400 Diastolic blood pressure 70 mm[Hg] Kristen Eugene PA-C Work Phone: [facility] 01-27-2023 10:22-0400 Heart rate 110 /min Kristen Eugene PA-C Work Phone: [facility] 01-27-2023 10:22-0400 Respiratory rate 16 /min Kristen Eugene PA-C Work Phone: [facility] 01-27-2023 10:22-0400 Systolic blood pressure 110 mm[Hg] Kristen Eugene PA-C Work Phone: [facility] 01-12-2023 10:22-0400 Body height 160.02 cm [facility] 01-12-2023 10:22-0400 Body mass index (BMI) [Ratio] 31.1 kg/m2 [facility] 01-12-2023 10:22-0400 Body temperature 97.6 [degF] [facility] 01-12-2023 10:22-0400 Body weight 79.78 kg [facility] 01-12-2023 10:22-0400 Diastolic blood pressure 83 mm[Hg] [facility] 01-12-2023 10:22-0400 Heart rate 92 /min [facility] 01-12-2023 10:22-0400 Respiratory rate 16 /min [facility] 01-12-2023 10:22-0400 SaO2% (BldA) [Mass fraction] 100 % [facility] 01-12-2023 10:22-0400 Systolic blood pressure 146 mm[Hg] [facility] 07-19-2022 11:20-0500 Body temperature 98.01 [degF] Isabel Older SENIOR ORACLE APPLICATIONS DEVELOPER.ASSISTANT ENGINEER Work Phone: [facility] 07-19-2022 11:20-0500 Body weight 75.75 kg Isabel Older SENIOR ORACLE APPLICATIONS DEVELOPER.ASSISTANT ENGINEER Work Phone: [facility] 07-19-2022 11:20-0500 Diastolic blood pressure 82 mm[Hg] Isabel Older SENIOR ORACLE APPLICATIONS DEVELOPER.ASSISTANT ENGINEER Work Phone: [facility] 07-19-2022 11:20-0500 Heart rate 118 /min Isabel Older SENIOR ORACLE APPLICATIONS DEVELOPER.ASSISTANT ENGINEER Work Phone: [facility] 07-19-2022 11:20-0500 Respiratory rate 20 /min Isabel Older SENIOR ORACLE APPLICATIONS DEVELOPER.ASSISTANT ENGINEER Work Phone: [facility] 07-19-2022 11:20-0500 SaO2% (BldA) [Mass fraction] 95 % Isabel Older SENIOR ORACLE APPLICATIONS DEVELOPER.ASSISTANT ENGINEER Work Phone: [facility] 07-19-2022 11:20-0500 Systolic blood pressure 140 mm[Hg] Isabel Older SENIOR ORACLE APPLICATIONS DEVELOPER.ASSISTANT ENGINEER Work Phone: [facility] 06-26-2022 11:08-0500 Diastolic blood pressure 72 mm[Hg] Carl Encarnacion MD Work Phone: [facility] 06-26-2022 11:08-0500 Systolic blood pressure 130 mm[Hg] Carl Encarnacion MD Work Phone: [facility] 06-26-2022 10:45-0500 Body weight 76.66 kg Carl Encarnacion MD Work Phone: [facility] 06-26-2022 10:45-0500 Heart rate 90 /min Carl Encarnacion MD Work Phone: [facility] 06-26-2022 10:45-0500 Respiratory rate 20 /min Carl Encarnacion MD Work Phone: [facility] 12-12-2021 12:20-0400 Diastolic blood pressure 94 mm[Hg] Carl Encarnacion MD Work Phone: [facility] 12-12-2021 12:20-0400 Systolic blood pressure 182 mm[Hg] Carl Encarnacion MD Work Phone: [facility] 12-12-2021 11:56-0400 Body weight 75.3 kg Carl Encarnacion MD Work Phone: [facility] 12-12-2021 11:56-0400 Heart rate 82 /min Carl Encarnacion MD Work Phone: [facility] 12-12-2021 11:56-0400 Respiratory rate 16 /min Carl Encarnacion MD Work Phone: [facility] Encounters Encounter Date Encounter Type Care Provider Facility Start: 12-11-2024 End: 12-11-2024 ambulatory Lasha Pro OLS Facility:[facility] Start: 12-05-2024 End: 12-05-2024 ambulatory Savi Tavares PLASTICS TOOLING ENGINEER Facility:[facility] Start: 12-04-2024 End: 12-05-2024 ambulatory Efannmarie Graye OLS Facility:[facility] Start: 11-22-2024 End: 11-22-2024 ambulatory Savi Tavares PLASTICS TOOLING ENGINEER Facility:[facility] Start: 11-17-2024 End: 11-17-2024 ambulatory Savi Tavares NP Facility:[facility] Start: 11-07-2024 End: 11-07-2024 ambulatory Lasha Pro Facility:[facility] Start: 11-02-2024 End: 11-02-[address] Carl Encarnacion MD Work Phone: [facility] Work Phone: Start: 11-02-2024 End: 11-02-2024 Departed Referred Lasha Pro MD [facility] Start: 11-02-2024 Registered Referred Lasha Pro MD [facility] Start: 11-02-2024 End: 11-02-2024 ambulatory Lasha VASQUEZ Facility:[facility] Start: 10-30-2024 End: 10-30-[address] Carl Encarnacion MD Work Phone: [facility] Work Phone: Start: 10-30-2024 End: 10-30-2024 Departed Referred Lasha rPo MD [facility] Start: 10-30-2024 Registered Referred Lasha Pro MD [facility] Start: 10-30-2024 End: 10-30-2024 ambulatory Lasha Pro OLS Facility:[facility] Start: 10-19-2024 End: 10-19-2024 ambulatory Jim SANTOS Facility:[facility] Start: 10-19-2024 End: 10-19-2024 Patient encounter procedure Jim SANTOS -[facility] Work Phone: Start: 10-16-2024 End: 10-16-[address] Carl Encarnacion MD Work Phone: [facility] Work Phone: Start: 10-16-2024 End: 10-16-2024 Departed Referred Lasha Pro MD -[facility] Start: 10-16-2024 End: 10-16-2024 ambulatory Efannmarie Pro OLS Facility:[facility] Start: 09-27-2024 [facility]istered [facility] Start: 09-27-2024 End: 09-27-2024 ambulatory Savi Tavares PLASTICS TOOLING ENGINEER Facility:[facility] Start: 09-27-2024 End: 09-27-2024 Patient encounter procedure Savi Tavares PLASTICS TOOLING ENGINEER-C -[facility] Work Phone: Start: 09-25-2024 ambulatory Lasha Pro OLS Fa cility:[facility] Start: 09-25-2024 Registered Referred Lasha Pro MD [facility] Start: 09-18-2024 ambulatory Efewlesley Pro OLS Fa cility:[facility] Start: 09-18-2024 Registered Referred Lasha Pro MD [facility] Start: 09-14-2024 ambulatory Efewlesley Pro OLS Fa cility:[facility] Start: 09-14-2024 Registered [facility] Start: 09-12-2024 End: 09-12-2024 ambulatory Carl Encarnacion Facility:[facility] Start: 09-12-2024 End: 09-12-[address] Lasha Pro MD -[facility] Work Phone: Start: 09-03-2024 ambulatory Efannmarie Pro OLS Fa cility:[facility] Start: 09-03-2024 Registered [facility] Start: 08-15-[address] ZACKARY WALLER MD Facility:[facility] Start: 08-11-2024 End: 08-11-2024 ambulatory Savi Tavares NP Facility:[facility] Start: 08-11-2024 End: 08-11-2024 Patient encounter procedure Savi Tavares PLASTICS TOOLING ENGINEER-Artis -[facility] Work Phone: Start: 08-07-2024 ambulatory Efannmarie Pro OLS Fa cility:[facility] Start: 08-07-2024 Registered [facility] Start: 07-11-2024 End: 07-11-2024 ambulatory Efcachorroongbe Olehelene Facility:[facility] Start: 06-22-2024 End: 06-22-2024 ambulatory Jim SANTOS Facility:[facility] Start: 06-19-2024 ambulatory Efewongbe Oleghe OLS Fa cility:[facility] Start: 05-22-2024 End: 05-22-2024 ambulatory Efewongbe Oleghe OLS Facility:[facility] Start: 05-16-2024 End: 05-16-2024 ambulatory Efewongbe Oleghe Facility:[facility] Start: 05-15-2024 ambulatory Efewongbe Oleghe OLS Fa cility:[facility] Start: 05-08-2024 ambulatory Efewnilesbe Oleghe OLS Fa cility:[facility] Start: 05-01-2024 End: 05-01-2024 ambulatory Efewongbe Marinae OLS Facility:[facility] Start: 04-24-2024 ambulatory Efewongbe Oleghe OLS Fa cility:[facility] Start: 04-18-2024 End: 04-18-2024 ambulatory [facility] PLASTICS TOOLING ENGINEER [facility] Start: 04-17-2024 ambulatory Efewongbe Oleghe OLS Fa cility:[facility] Start: 04-11-2024 ambulatory Efewongbe Oleghe OLS Fa cility:[facility] Start: 04-03-2024 ambulatory Efewnilesbe Oleghe OLS Fa cility:[facility] Start: 03-27-2024 ambulatory Efewongbe Oleghe OLS Fa cility:[facility] Start: 03-20-2024 End: 03-20-2024 ambulatory Sujatamalina Baconcarmen Facility:[facility] Start: 03-20-2024 End: 03-20-2024 ambulatory Efewongbe Oleghe OLS Facility:[facility] Start: 03-13-2024 ambulatory Efewongbe Oleghe OLS Fa cility:[facility] Start: 03-10-2024 End: 03-10-2024 ambulatory [facility] PLASTICS TOOLING ENGINEER Facility[facility] Start: 03-06-2024 ambulatory Efewongbe Oleghe OLS Fa cility:[facility] Start: 02-28-2024 ambulatory Tenzinnilesphilip VASQUEZ Fa cility:[facility] Start: 02-23-2024 ambulatory Lasha VASQUEZ Fa cility:[facility] Start: 02-21-2024 End: 02-21-2024 ambulatory Savi Tavares NP Facility:[facility] Start: 02-15-2024 End: 02-15-2024 Refill Carl Encarnacion MD Work Phone: [facility] Comment on above: Refill Request Start: 02-05-2024 End: 02-14-2024 Evaluation and management of inpatient ANNELIESE CHAIREZ DO [facility] Start: 02-01-2024 End: 02-05-2024 Evaluation and management of inpatient STEFANO GRAHAM SENIOR ORACLE APPLICATIONS DEVELOPER-ASSISTANT ENGINEER [facility] Start: 01-25-2024 ambulatory Carl cassidy MD Work Phone: [facility] Start: 01-22-2024 End: 02-01-2024 Evaluation and management of inpatient USMAN CHILDS MD FACP [facility] Start: 01-21-2024 ambulatory Radha Pean NP Facili ty:[facility] Start: 01-20-2024 ambulatory Hector Monica [facility] Start: 01-20-2024 End: 01-22-2024 Evaluation and management of inpatient Marilee Avitia Facility:[facility] Start: 01-20-2024 Chart abstracting Carl barragan MD Work Phone: [facility] Comment on above: Outside Heart Cath Start: 01-13-2024 End: 01-13-2024 ambulatory CARL ENCARNACION Facility:[facility] Start: 01-11-2024 Telephone encounter Carl Encarnacion MD Work Phone: [facility] Comment on above: Patient Update Start: 01-07-2024 Telephone encounter Esterkat Bejarano APRN.TELEGRAPH OPERATOR Work Phone: [facility] Comment on above: Medication Problem Start: 01-06-2024 Telephone encounter Ester Bejarano APRN.TELEGRAPH OPERATOR Work Phone: [facility] [place] Comment on above: Results OT Update Start: 01-04-2024 Refill Carl cassidy MD Work Phone: [facility] Comment on above: Refill Request Start: 12-25-2023 Home visit Carl cassidy MD Work Phone: [facility] Comment on above: Essential hypertensi on, malignant (Primary Dx) Start: 12-21-2023 Chart abstracting Carl barragan MD Work Phone: [facility] Comment on above: Ext / Discharge Summ edwina Start: 12-16-2023 Telephone encounter Ester Bejarano APRN.TELEGRAPH OPERATOR Work Phone: [facility] [place] Start: 12-15-2023 Telephone encounter Carl Encarnacion MD Work Phone: [facility] [place] Start: 12-14-2023 Telephone encounter Carl Encarnacion MD Work Phone: [facility] Comment on above: Patient Update from [facility] Start: 12-14-2023 End: 12-14-2023 ambulatory CARL ENCARNACION Facility:[facility] Start: 12-13-2023 Telephone encounter Carl Encarnacion MD Work Phone: [facility] Comment on above: [facility]-ve rbal ordes requeted Start: 12-13-2023 End: 12-13-2023 Office outpatient visit 15 minutes Ester Bejarano APRN.TELEGRAPH OPERATOR Work Phone: [facility] Comment on above: Recurrent UTI (urina ry tract infection) (Primary Dx); Essential hypertension; Malignant neoplasm of ovary, unspecified laterality (HCC); Aortic stenosis, moderate Start: 12-13-2023 End: 01-11-2024 ambulatory CARL ENCARNACION Facility:[facility] Start: 12-06-2023 Refill Carl cassidy MD Work Phone: [facility] Comment on above: Refill Request Start: 11-26-2023 End: 12-11-2023 Evaluation and management of inpatient USMAN CHILDS MD FAC [facility] Start: 11-26-2023 Non-patient / Non-visit Dr. Deandre Encarnacion Work Phone: [facility] Work Phone: Start: 11-25-2023 Non-patient / Non-visit Dr. Deandre Encarnacion Work Phone: [facility] Work Phone: Start: 11-24-2023 Chart abstracting Keily Rico [facility] Comment on above: Hospital Admission Start: 11-24-2023 Non-patient / Non-visit Dr. Deandre Encarnacion Work Phone: [facility] Work Phone: Start: 11-23-2023 End: 11-26-2023 [facility] Work Phone: Start: 10-07-2023 Refill Carl cassidy MD Work Phone: [facility] Comment on above: Refill Request Start: 09-16-[address] ZACKARY WALLER MD Facility:[facility] Start: 09-09-2023 End: 09-09-[address] ZACKARY WALLER MD Facility:[facility] Start: 09-09-2023 End: 09-09-[address] ZACKARY WALLER MD [facility] Start: 08-18-2023 End: 08-18-2023 ambulatory CARL ENCARNACION Facility:[facility] Start: 07-26-2023 End: 07-26-2023 Patient encounter procedure Prosper Amador Work Phone: [facility] Start: 07-26-2023 End: 07-26-2023 ambulatory Prosper Amador Work Phone: Hematology/Oncology Comment on above: 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) Start: 07-16-2023 Telephone encounter Wilmar perales DO Work Phone: Hematology/Oncology Start: 07-14-2023 End: 07-14-2023 ambulatory CARL ENCARNACION Facility:[facility] Start: 07-13-2023 Orders Only Wilmar Davies Work Phone: Hematology/Oncology Comment on above: 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) Start: 07-12-2023 Telephone encounter Carl Encarnacion MD Work Phone: [facility] Comment on above: Medication Problem Start: 07-07-2023 End: 07-07-2023 Patient encounter procedure Wilmar Forbes DO Work Phone: [facility] Start: 07-07-2023 End: 07-07-2023 ambulatory Wilmar Forbes DO Work Phone: Hematology/Oncology Comment on above: 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) Start: 06-17-2023 Telephone encounter Korin Mantilla RN He matology/Oncology Comment on above: Fiber Optic Technician - O ther (Toxicity Check (Carboplatin)) Start: 06-11-2023 Telephone encounter Korin Eduardo matology/Oncology Comment on above: Fiber Optic Technician - O ther (C1D1 Post Treatment Call (Carboplatin) ) Medication Problem Start: 06-10-2023 End: 06-10-2023 ambulatory CARL ENCARNACION Facility:[facility] Start: 06-07-2023 Refill Carl cassidy MD Work Phone: [facility] Comment on above: Refill Request Fiber Optic Technician - O ther (Orders ) Start: 06-04-2023 End: 06-04-2023 group leader wafer polishing [facility] Work Phone: Hematology/Oncology Comment on above: Encounter for educat ion (Primary Dx) Start: 06-02-2023 End: 06-02-2023 ambulatory Wilmar Forbes DO Work Phone: Hematology/Oncology Comment on above: Ovarian cancer on ri ght (HCC) (Primary Dx) Start: 06-02-2023 End: 06-02-2023 Patient encounter procedure Wilmar Hernandez Leidy DO Work Phone: [facility] Start: 06-02-2023 Telephone encounter Korin Mantilla RN He matology/Oncology Comment on above: Fiber Optic Technician - O ther (Introduction ) AVS 06/02/23, CHEMO START Start: 05-31-2023 Home visit Carl cassidy MD Work Phone: [facility] [place] Comment on above: 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 (Primary Dx) Start: 05-17-2023 End: 05-17-2023 ambulatory CARL ENCARNACION Facility:[facility] Start: 05-13-2023 Telephone encounter Carl Encarnacion MD Work Phone: [facility] [place] Comment on above: Nursing Plan of Care Start: 05-03-2023 End: 05-03-2023 ambulatory Eliot Castillo MD Work Phone: Gynecology Comment on above: Ovarian cancer on ri ght (HCC) (Primary Dx); Post-operative state Start: 05-03-2023 End: 05-03-2023 Patient encounter procedure Eliot Castillo MD Work Phone: [facility] Start: 05-03-2023 End: 05-03-2023 ambulatory CARL ENCARNACION Facility:[facility] Start: 05-01-2023 Refill Annmarie fair SENIOR ORACLE APPLICATIONS DEVELOPER.ASSISTANT ENGINEER Work Phone: [facility] [place] Comment on above: Refill Request Start: 04-09-2023 Telephone encounter Annmarie garcia APRN.ASSISTANT ENGINEER Work Phone: [facility] [place] Comment on above: home health calling Start: 04-07-2023 Encounter for other preprocedural examination ELIOT CASTILLO [facility] Start: 04-07-2023 End: 04-14-2023 Evaluation and management of inpatient ELIOT CASTILLO Facility:[facility] Start: 04-06-2023 End: 04-06-2023 Admission to establishment P[facility] Start: 04-06-2023 Encounter for other preprocedural examination ELIOT CASTILLO [facility] Start: 04-06-2023 End: 04-06-2023 ambulatory Ousmane Jones APRN.ROGE CLEMONS Work Phone: Pre Anesthesia Comment on above: preop instructions Pre-op evaluation (P rimary Dx); Acquired hypothyroidism; Essential hypertension; Gastroesophageal reflux disease without esophagitis; History of pulmonary embolism; Aortic stenosis, moderate Start: 04-06-2023 E-mail encounter fro mary caregiver Ousmane Jones APRN.ROGE CLEMONS Work Phone: [facility] Start: 04-06-2023 End: 04-06-2023 Preprocedural examination done Ousmane Jones APRN.CNP, DNP Work Phone: [facility] Work Phone: Start: 04-06-2023 Telephone encounter Ousmane stone APRN.CNP, DNP Work Phone: Pre Anesthesia Start: 03-24-2023 Telephone encounter Dari moreno MD Work Phone: [facility] Comment on above: Appointment Patient Update Start: 03-23-2023 End: 03-23-2023 ambulatory CARL ENCARNACION Facility:[facility] Start: 03-22-2023 End: 03-22-2023 Preprocedural examination done Annmarie Mendoza APRN.ASSISTANT ENGINEER Work Phone: [facility] Work Phone: Start: 03-22-2023 Telephone encounter Tuyet Lorenz RN Gy necology Comment on above: Pre op instructions Results Start: 03-22-2023 End: 03-22-2023 Subsequent hospital visit by physician Manju [facility] Comment on above: Ovarian mass [N83.8] Start: 03-16-2023 Telephone encounter Ely oshea MD Work Phone: OB/Gynecology Comment on above: Referral Information Start: 03-09-2023 End: 03-09-2023 ambulatory CARL ENCARNACION Facility:[facility] Start: 03-09-2023 End: 03-09-2023 ambulatory CARL ENCARNACION Facility:[facility] Start: 03-09-2023 End: 03-09-2023 Subsequent hospital visit by physician Mari [facility] ([facility]) Work Phone: Cat Scan Comment on above: Pelvic mass [R19.00] Start: 03-02-2023 End: 03-02-2023 ambulatory [facility] Work Phone: Start: 03-02-2023 End: 03-02-2023 Patient encounter procedure [facility]-Laboratory, Specimen Work Phone: Start: 02-08-2023 Refill Carl cassidy MD Work Phone: [facility] Comment on above: Refill Request Start: 02-02-2023 End: 02-02-2023 ambulatory America Camejo PT [facility] Comment on above: Sciatica, right side (Primary Dx); Falls, subsequent encounter Start: 02-02-2023 Telephone encounter Kristen brewer PA-C Work Phone: [facility] Comment on above: Results Start: 01-27-2023 End: 01-27-2023 Subsequent hospital visit by physician Manju [facility] Nickolas Work Phone: Radiology Comment on above: Sciatica, right side [M54.31] Start: 01-27-2023 End: 01-27-2023 ambulatory CARL ENCARNACION Facility:[facility] Start: 01-27-2023 End: 01-27-2023 Patient encounter procedure Kristen Eugene PA-C Work Phone: [facility] Comment on above: Sciatica, right side (Primary Dx); Fall, subsequent encounter Start: 01-25-2023 Telephone encounter Kristen brewer PA-C Work Phone: [facility] Comment on above: Results Start: 01-21-2023 Telephone encounter Carl Encarnacion MD Work Phone: [facility] [place] Comment on above: Results Start: 01-12-2023 End: 01-12-2023 Emergency department patient visit [facility] Start: 01-12-2023 End: 01-12-2023 Patient encounter procedure Barrera Daley APRN.ASSISTANT ENGINEER Work Phone: [facility] Comment on above: Severe back pain (Pr imary Dx); Fall, initial encounter Start: 11-06-2022 Refill Carl cassidy MD Work Phone: [facility] Comment on above: Refill Request Start: 09-10-2022 Refill Carl cassidy MD Work Phone: [facility] Comment on above: Refill Request Start: 07-20-2022 Telephone encounter Barrera greene APRN.ASSISTANT ENGINEER Work Phone: [facility] Comment on above: Results Start: 07-20-2022 End: 07-20-2022 Subsequent hospital visit by physician Xr [facility] Work Phone: Radiology Comment on above: Acute cough [R05.1] Start: 07-19-2022 End: 07-19-2022 Patient encounter procedure Isabel Roca APRN.ASSISTANT ENGINEER Work Phone: [facility] Comment on above: Acute cough (Primary Dx); Wheezing Start: 06-29-2022 Telephone encounter Carl Encarnacion MD Work Phone: [facility] Comment on above: Results Start: 06-26-2022 End: 06-26-2022 Patient encounter procedure Carl Encarnacion MD Work Phone: [facility] Comment on above: Essential hypertensi on (Primary Dx); Mixed hyperlipidemia; Gastroesophageal reflux disease without esophagitis; Acquired hypothyroidism; Aortic stenosis, moderate; Osteoarthritis of multiple joints, unspecified osteoarthritis type; Encounter for immunization; Advance directive discussed with patient Start: 06-10-2022 Refill Carl cassidy MD Work Phone: [address] [place] [address] Comment on above: Refill Request Start: 06-05-2022 Refill Carl cassidy MD Work Phone: [facility] [place] Comment on above: Refill Request Start: 05-25-2022 Telephone encounter Carl Encarnacion MD Work Phone: [facility] [place] Comment on above: patient refused test ing Start: 05-13-2022 Telephone encounter Carl Encarnacion MD Work Phone: [facility] [place] Comment on above: Orders Start: 05-01-2022 Telephone encounter Carl Encarnacion MD Work Phone: [facility] [place] Comment on above: returning oxygen (Re turning oxygen to [employer]) Start: 03-16-2022 Telephone encounter Carl Encarnacion MD Work Phone: [facility] [place] Comment on above: Patient Question Start: 03-13-2022 Refill Carl cassidy MD Work Phone: [facility] [place] Comment on above: Prescription Refills Start: 12-15-2021 Telephone encounter Carl Encarnacion MD Work Phone: [facility] [place] Comment on above: Results Start: 12-12-2021 End: 12-12-2021 Patient encounter procedure Carl Encarnacion MD Work Phone: [facility] [place] Comment on above: Essential hypertensi on (Primary Dx); Mixed hyperlipidemia; Acquired hypothyroidism; History of pulmonary embolism; Gastroesophageal reflux disease without esophagitis; Osteoarthritis of multiple joints, unspecified osteoarthritis type; Medication management Start: 11-28-2021 Refill Carl cassidy MD Work Phone: [facility] [place] Comment on above: Refill Request Start: 11-17-2021 Telephone encounter Carl Encarnacion MD Work Phone: [facility] [place] Comment on above: urine culture Start: 11-12-2021 Telephone encounter Carl Encarnacion MD Work Phone: [facility] [place] Comment on above: Results Start: 08-07-2021 Patient encounter procedure Carl Encarnacion MD Work Phone: [facility] Work Phone: Start: 06-19-2021 Patient encounter status [facility] Start: 02-05-2021 Patient encounter status Tenisha Encarnacion MD Work Phone: [facility] Work Phone: Procedures Date Procedure Procedure Detail Performing Clinician Start: 09-27-[address] Tenisha Encarnacion MD Work Phone: Start: 09-25-[address] Tenisha Encarnacion MD Work Phone: Start: 09-14-[address] Tenisha Encarnacion MD Work Phone: Start: 09-03-[address] Tenisha Encarnacion MD Work Phone: Start: 01-21-2024 Cardiac catheterization USMAN CHILDS MD [facility] Start: 11-23-[address] Tenisha Encarnacion Work Phone: Start: 11-23-2023 Plain chest X-ray Start: 09-09-2023 Echocardiography USMAN CHILDS MD [facility] Comment on above: Summary: 1. Left ventricle: [...] ast 12 lds i&r only Annmarie Gargalianos SENIOR ORACLE APPLICATIONS DEVELOPER.ASSISTANT ENGINEER Work Phone: Start: 03-09-2023 Ct abdomen & pelvis w/contrast material Carl Encarnacion MD Work Phone: Start: 01-27-2023 Radex spine lumbosac ral 2/3 views Kristen Eugene PA-C Work Phone: Start: 01-12-2023 X-ray of lumbar spin e, two or three views Start: 07-20-2022 Radiologic exam ches t 2 views Isabel Jansen SENIOR ORACLE APPLICATIONS DEVELOPER.ASSISTANT ENGINEER Work Phone: Start: 06-26-2022 INFLUENZA SEASONAL QUADRIVALENT HIGH DOSE AGE 65+ Carl Encarnacion MD Work Phone: Start: 06-26-2022 amaysim-Videostrip COVI D-19 BIVALENT BOOSTER VACCINE, AGE 12+ YR Carl Encarnacion MD Work Phone: Extraction of cataract DR KOBY WALLER MD Plan of Treatment Date Care Activity Detail Author Start: 08-18-2026 [facility] 07-26-2026 [facility] Start: 07-14-2026 [facility] Start: 07-07-2026 [facility] Start: 06-10-2026 [facility] Start: 06-02-2026 Diabetes Screening Diabetes [facility] Start: 04-14-2026 Diabetes Screening Diabetes Screenin [facility] Start: 04-12-2026 DIABETES SCREEN DIABETES SCREEN [facility] Start: 03-22-2026 DIABETES SCREEN DIABETES SCREEN [facility] Start: 01-15-2026 DIABETES SCREEN DIABETES SCREEN [facility] Start: 12-12-2024 DIABETES SCREEN DIABETES SCREEN [facility] Start: 08-12-2024 DIABETES SCREEN DIABETES SCREEN [facility] Start: 04-09-2024 Covid-19 Vaccine () Covid-19 Vaccine () [facility] Start: 04-09-2024 Covid-19 Vaccine ( season) Covid-19 Vaccine () [facility] Start: 04-09-2024 Influenza vaccination Influenza Vacc ine (#1) [facility] Start: 02-17-2024 End: 02-17-2024 Patient encounter procedure 02/17/2024 10:20 AM EDT Office Visit [facility] [place] [address], [place] [id number] Kristen Eugene PA-C [address] [place], [place] [address] Medicare wellness [facility] Comment on above: Medicare wellness Start: 01-13-2024 End: 04-13-2024 Bacteria identified in Urine by Culture URINE CULTURE Microbiology Routine Recurrent UTI (urinary tract infection) Expected: 01/13/2024, Expires: 04/13/2024 [facility] Work Phone: Comment on above: Expected: 01/13/2024 , Expires: 04/13/2024 Start: 12-23-2023 End: 03-23-2024 Bacteria identified in Urine by Culture URINE CULTURE Microbiology Routine Recurrent UTI (urinary tract infection) Expected: 12/23/2023, Expires: 03/23/2024 [facility] Work Phone: Comment on above: Expected: 12/23/2023 , Expires: 03/23/2024 Start: 12-13-2023 End: 03-13-2024 Bacteria identified in Urine by Culture URINE CULTURE Microbiology Routine Recurrent UTI (urinary tract infection) Expected: 12/13/2023, Expires: 03/13/2024 [facility] Work Phone: Comment on above: Expected: 12/13/2023 , Expires: 03/13/2024 Start: 12-13-2023 End: 03-13-2024 URINALYSIS, REFLEX MICROSCOPIC URINALYSIS, REFLEX MICROSCOPIC Lab Routine Recurrent UTI (urinary tract infection) Expected: 12/13/2023, Expires: 03/13/[address] [facility] Comment on above: Expected: 12/13/2023 , Expires: 03/13/2024 Start: 11-26-2023 Patient discharge [facility] Start: 11-24-2023 Referral to service [facility] Start: 11-23-2023 Bacteria identified in Urine by Culture [facility] Start: 11-23-2023 Following clinical p athway protocol [facility] Start: 11-23-2023 Ambulation without limitation [facility] Start: 11-23-2023 Assessment of risk o f venous thromboembolism [facility] Start: 11-23-2023 Insertion of cathete r into peripheral vein [facility] Start: 11-23-2023 Providing care accor ding to standard [facility] Start: 11-23-2023 Referral to occupati onal therapist [facility] Start: 11-23-2023 Referral to service [facility] Start: 11-23-2023 [facility] Start: 11-23-2023 Hospital admission, emergency, from emergency room, medical nature [facility] Start: 11-23-2023 Verification routine [facility] Start: 11-23-2023 Admission procedure [facility] Start: 11-23-2023 [facility] Start: 11-23-2023 [facility] Start: 08-09-2023 Advance Directive Discussion Advance Directive Discussion [facility] Start: 08-09-2023 Behavioral Health Screening Behavioral Health Screening [facility] Start: 08-09-2023 Depression Assessment Depression Ass essment [facility] Start: 07-14-2023 End: 10-13-2023 Basic metabolic 2000 panel - Serum or Plasma BASIC METABOLIC PNL Lab STAT Malignant neoplasm of right ovary (HCC) Expected: 07/14/2023, Expires: 10/13/2023 [facility] Work Phone: Comment on above: Expected: 07/14/2023 , Expires: 10/13/2023 Start: 07-12-2023 Covid-19 Vaccine () Covid-19 Vaccine () [facility] Start: 06-26-2023 Shingrix Vaccine (1 of 2) Hoff grix Vaccine (1 of 2) [facility] Comment on above: Postponed from 01/21 (Insurance Coverage) Start: 06-26-2023 SHINGRIX VACCINE (2 of 3) HOFF GRIX VACCINE (2 of 3) [facility] Comment on above: Postponed from 01/21 (Insurance Coverage) Start: 06-26-2023 Urine microalbumin profile [facility] Comment on above: Postponed from 03/17 (Insurance Coverage) Start: 06-18-2023 End: 09-17-2023 Basic metabolic 2000 panel - Serum or Plasma BASIC METABOLIC PNL Lab STAT 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 (HCC) Expected: 06/18/2023, Expires: 09/17/2023 [facility] Work Phone: Comment on above: Expected: 06/18/2023 , Expires: 09/17/2023 Start: 06-07-2023 End: 09-06-2023 PAULINE ISTAT BMP PAULINE ISTAT BMP Lab STAT 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 (HCC) Expected: 06/07/2023, Expires: 09/06/2023 [facility] Work Phone: Comment on above: Expected: 06/07/2023 , Expires: 09/06/2023 Start: 04-09-2023 Influenza vaccination [facility] Start: 01-25-2023 End: 03-27-2023 Bacteria identified in Urine by Culture URINE CULTURE Microbiology Routine Urinary frequency Expected: 01/25/2023, Expires: 03/27/2023 [facility] Work Phone: Comment on above: Expected: 01/25/2023 , Expires: 03/27/2023 Start: 10-24-2022 COVID-19 VACCINE (5 - Mixed Product series) COVID-19 VACCINE (5 - Mixed Product series) [facility] Start: 08-09-2022 ADVANCE DIRECTIVE DISCUSSION ADVANCE DIRECTIVE DISCUSSION [facility] Start: 08-09-2022 DEPRESSION ASSESSMENT DEPRESSION ASS ESSMENT [facility] Start: 04-09-2022 Influenza vaccination INFLUENZA (#1) [facility] Start: 12-10-2021 COVID-19 VACCINE (4 - Booster) COVID-19 VACCINE (4 - Booster) [facility] Start: 11-12-2021 End: 01-12-2022 Bacteria identified in Urine by Culture URINE CULTURE Microbiology Routine Frequent UTI Confusion Expected: 11/12/2021, Expires: 01/12/2022 [facility] Work Phone: Comment on above: Expected: 11/12/2021 , Expires: 01/12/2022 Start: 11-12-2021 End: 01-12-2022 Urinalysis complete panel - Urine URINALYSIS, WITH MICROSCOPIC Lab Routine Frequent UTI Confusion Expected: 11/12/2021, Expires: 01/12/2022 [facility] Work Phone: Comment on above: Expected: 11/12/2021 , Expires: 01/12/2022 Start: 10-07-2021 COVID-19 VACCINE (4 - Booster) COVID-19 VACCINE (4 - Booster) [facility] Start: 08-09-2021 ADVANCE DIRECTIVE DISCUSSION ADVANCE DIRECTIVE DISCUSSION [facility] Start: 08-09-2021 DEPRESSION ASSESSMENT DEPRESSION ASS ESSMENT [facility] Start: 2014 RSV Vaccine (1 - 1-d ose 75+ series) RSV Vaccine (1 - 1-dose 75+ series) [facility] Start: 01-22-2012 Shingrix Vaccine (1 of 2) Hoff grix Vaccine (1 of 2) [facility] Start: 01-22-2012 SHINGRIX VACCINE (2 of 3) HOFF GRIX VACCINE (2 of 3) [facility] Start: 10-22-2005 Screening for malign ant neoplasm of cervix Cervical Cancer Screening [facility] Start: 1999 RSV Vaccine (1 - 1-d ose 60+ series) RSV Vaccine (1 - 1-dose 60+ series) [facility] Start: 1958 Urine microalbumin profile [facility] Start: 1957 Anxiety Screening Anxiety Screening [facility] Start: 1957 Depression Screening Depression Scre ening [facility] End: 06-06-2024 Cancer Ag 125 [Units/volume] in Serum or Plasma CA 125 BLD Lab Routine 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 (HCC) Every 3 weeks for 30 Occurrences starting 06/07/2023 until 06/06/2024 [facility] Work Phone: Comment on above: Every 3 weeks for 30 Occurrences starting 06/07/2023 until 06/06/2024 End: 06-06-2024 CBC W Auto Differential panel - Blood CBC + DIFF Lab STAT 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 (HCC) Every 3 weeks for 30 Occurrences starting 06/07/2023 until 06/06/2024 [facility] Work Phone: Comment on above: Every 3 weeks for 30 Occurrences starting 06/07/2023 until 06/06/2024 End: 06-06-2024 Comprehensive metabolic 2000 panel - Serum or Plasma COMP METABOLIC PANEL Lab STAT 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 (HCC) Every 3 weeks for 30 Occurrences starting 06/07/2023 until 06/06/2024 [facility] Work Phone: Comment on above: Every 3 weeks for 30 Occurrences starting 06/07/2023 until 06/06/2024 End: 03-22-2024 Echocardiography ECHO Cardiology KARLENE Preop examination 1 Occurrences starting 03/22/2023 until 03/22/2024 [facility] Work Phone: Comment on above: 1 Occurrences starti ng 03/22/2023 until 03/22/2024 End: 06-06-2024 Magnesium [Mass/volume] in Serum or Plasma MAGNESIUM BLD Lab Routine 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 (HCC) Every 3 weeks for 30 Occurrences starting 06/07/2023 until 06/06/2024 [facility] Work Phone: Comment on above: Every 3 weeks for 30 Occurrences starting 06/07/2023 until 06/06/2024 OXIMETRY - NOCTURNAL OXIMETRY - NOCTURNAL Procedures Routine Hypoxia Ordered: 05/01/2022 [facility] Work Phone: Comment on above: Ordered: 05/01/2022 End: 05-31-2023 OXIMETRY WITH AMBULATION OXIMETRY WITH AMBULATION PFT Routine Hypoxia 1 Occurrences starting 05/01/2022 until 05/31/2023 [facility] Work Phone: Comment on above: 1 Occurrences starti ng 05/01/2022 until 05/31/2023 PAIN PANEL, UR QUANT PAIN PANEL, UR QUANT Lab Routine Osteoarthritis of multiple joints, unspecified osteoarthritis type Medication management Ordered: 12/12/2021 [facility] Work Phone: Comment on above: Ordered: 12/12/2021 PAIN PANEL, UR QUANT PAIN PANEL, UR QUANT Lab Routine Osteoarthritis of multiple joints, unspecified osteoarthritis type Medication management Ordered: 12/12/2021 [facility] Work Phone: Comment on above: Ordered: 12/12/2021 Patient Education ED Back Sprain/Strain [facility] Work Phone: Patient referral [facility] Work Phone: PT PLAN OF CARE CERTIFICATION PT PLAN OF CARE CERTIFICATION Procedures Routine Sciatica, right side Falls, subsequent encounter Ordered: 02/02/2023 [facility] Comment on above: Ordered: 02/02/2023 End: 02-26-2024 Radex spine lumbosacral 2/3 views XR LUMBAR GENERAL 3V AP/LAT/L5-S1 Radiology Routine Sciatica, right side Fall, subsequent encounter 1 Occurrences starting 01/27/2023 until 02/26/2024 [facility] Work Phone: Comment on above: 1 Occurrences starti ng 01/27/2023 until 02/26/2024 Radex spine lumbosac ral 2/3 views XR LUMBAR GENERAL 3V AP/LAT/L5-S1 Radiology Routine Sciatica, right side Fall, subsequent encounter 01/27/2023 12:01 PM EDT [facility] Work Phone: End: 08-18-2023 Radiologic exam chest 2 views XR CHEST 2V FRONTAL/LAT Radiology STAT Acute cough Wheezing 1 Occurrences starting 07/19/2022 until 08/18/2023 [facility] Work Phone: Comment on above: 1 Occurrences starti ng 07/19/2022 until 08/18/2023 Radiologic exam ches t 2 views XR CHEST 2V FRONTAL/LAT Radiology Routine Ovarian mass Preop examination 03/22/2023 1:40 PM EDT [facility] Work Phone: SPECIMEN VALIDITY, URINE SPECIME N VALIDITY, URINE Lab Routine Osteoarthritis of multiple joints, unspecified osteoarthritis type Medication management Ordered: 12/12/2021 [facility] Work Phone: Comment on above: Ordered: 12/12/2021 TOX SCREEN ROUT UR TOX SCREEN RO UT UR Lab Routine Osteoarthritis of multiple joints, unspecified osteoarthritis type Medication management Ordered: 12/12/2021 [facility] Work Phone: Comment on above: Ordered: 12/12/2021 [facility] Immunizations Immunization Date Immunization Notes Care Provider Fa [facility] 05-17-2023 COVID-19 vaccine, ag e 12+ yr, season (PFIZER-BIONTNeuroTronik) Carl Encarnacion MD Work Phone: [facility] 05-17-2023 influenza (HD-IIV4) vaccine, age 65+ yr, high dose, quadrivalent, PF (FLUZONE HIGH-DOSE) Carl Encarnacion MD Work Phone: [facility] 05-17-2023 influenza virus vacc ine, unspecified formulation USMAN CHILDS MD FACP [facility] 05-17-2023 SARS-CoV-2 (COVID-19 ) [id number] USMAN CHILDS MD FACP [facility] Comment on above: Result Comment: 2023: TPV80 06-26-2022 COVID-19 booster vaccine, age 12+ yr, bivalent (PFIZER-BIONTECH) Carl Encarnacion MD Work Phone: [facility] 06-26-2022 influenza, high-dose , quadrivalent vaccine (FLUZONE HIGH DOSE QUADRIVALENT) Carl Encarnacion MD Work Phone: [facility] 06-26-2022 influenza virus vacc ine, unspecified formulation Annmarie Tucker SENIOR ORACLE APPLICATIONS DEVELOPER.[facility] Work Phone: [facility] 08-12-2021 COVID-19 vaccine, ag e 12+ yr (PFIZER-BIONTECH - [facility]) Carl Encarnacion MD Work Phone: [facility] Work Phone: Comment on above: Result Comment: 2023: INDIVIDUALS OVER 80 YEARS OF AGE 1005-31-2021 influenza virus vacc ine, unspecified formulation USMAN CHILDS MD [facility] 05-31-2021 influenza, injectabl e, quadrivalent, preservative free [facility] 05-31-2021 influenza, seasonal, injectable [facility] 09-29-2020 COVID-19 vaccine, ag e 12+ yr (PFIZER-BIONTECH - [facility]) Carl Encarnacion MD Work Phone: [facility] Work Phone: Comment on above: Result Comment: 2023: TPV80 09-05-2020 Covid (Pfizer) [facility] Comment on above: Result Comment: 2023: TPV80 09-05-2020 COVID-19 vaccine, fu ll dose (MODERNA) Carl Encarnacion MD Work Phone: [facility] Work Phone: 06-15-2020 influenza virus vacc ine, unspecified formulation USMAN CHILDS MD [facility] 06-15-2020 influenza, injectabl e, quadrivalent, contains preservative Carl Encarnacion MD Work Phone: [facility] 05-08-2019 influenza virus vacc ine, unspecified formulation USMAN CHILDS MD FAC [facility] 05-08-2019 influenza, high dose seasonal, preservative-free Carl Encarnacion MD Work Phone: [facility] 05-10-2018 influenza virus vacc ine, unspecified formulation USMAN CHILDS MD [facility] 05-10-2018 influenza, high dose seasonal, preservative-free Carl Encarnacion MD Work Phone: [facility] 05-17-2017 influenza virus vacc ine, unspecified formulation USMAN CHILDS MD FAC [facility] 05-17-2017 influenza, high dose seasonal, preservative-free Carl Encarnacion MD Work Phone: [facility] 02-26-2017 pneumococcal polysaccharide vaccine, 23 valent Carl Encarnacion MD Work Phone: [facility] 05-13-2016 influenza virus vacc ine, unspecified formulation USMAN CHILDS MD [facility] 05-13-2016 influenza, high dose seasonal, preservative-free Carl Encarnacion MD Work Phone: [facility] 02-27-2016 pneumococcal conjuga te vaccine, 13 valent Carl Encarnacion MD Work Phone: [facility] 07-16-2015 influenza virus vacc ine, unspecified formulation USMAN CHILDS MD [facility] 07-16-2015 influenza, injectabl e, quadrivalent, contains preservative Carl Encarnacion MD Work Phone: [facility] Work Phone: 05-11-2014 influenza virus vacc ine, unspecified formulation USMAN CHILDS MD FAC [facility] 05-11-2014 influenza, seasonal, injectable Carl Encarnacion MD Work Phone: [facility] Work Phone: 07-17-2013 influenza virus vacc ine, unspecified formulation Carl Encarnacion MD Work Phone: [facility] Work Phone: 07-09-2012 influenza virus vacc ine, unspecified formulation Carl Encarnacion MD Work Phone: [facility] Work Phone: 11-27-2011 zoster vaccine, live Carl Encarnacion MD Work Phone: [facility] 06-24-2010 influenza virus vacc ine, unspecified formulation Carl Encarnacion MD Work Phone: [facility] 07-13-2006 influenza virus vacc ine, unspecified formulation Carl Encarnacion MD Work Phone: [facility] Work Phone: 07-13-2006 pneumococcal polysaccharide vaccine, 23 valent Carl Encarnacion MD Work Phone: [facility] Work Phone: Payers Date Payer Category Payer Private Health Insurance [id number] 2024 Self-pay [id number] 2024 Medicaid [id number] 2023 Medicare [id number] 2021 Unknown ANTHEM BLUE [facility] AND BLUE [facility] ANTHEM MEDIBLUE ACCESS [id number] 2021-Present [phone] [address] [place] [address] PPO [id number]. [id number] 2021 Unknown [id number] [id number]. [id number] 2021 Medicare [id number] 2015 Unknown HOSPITAL/MEDICAL GENERIC MEDICAL GENERIC [id number] 2015-Present [phone] [place] [address] Indemnity [id number]. [id number] 2004 Medicare MEDICARE MEDICAR E A AND B [id number] 2004-Present [phone] [place] [address] Medicare [id number]. [id number] 1939 Unknown [id number] 2.16840.1.276575.3.579.2. 627 1939 Unknown [id number] 2.16840.1.934488.3.579.2. 627 1939 Unknown [id number] 2.840.1.949051.3.579.2. 627 1939 Unknown [id number] 2.840.1.794448.3.579.2. 627 1939 Unknown [id number] 2.840.1.984796.3.579.2. 627 1939 Unknown [id number] 2.840.1.334873.3.579.2. 627 1939 Unknown [id number] 2.840.1.743288.3.579.2. 627 Unknown [facility] [id number] Unknown COMMERCIAL OTHER [id number] Unknown [id number] 2.16840.1.633028.3.579.2. 462 Unknown [id number] 2.16840.1.999834.3.579.2. 462 Unknown [id number] 2.16840.1.054395.3.579.2. 462 Unknown [id number] 2.16840.1.873178.3.579.2. 462 Unknown [id number] 2.16.840.1.695689.3.579.2. 462 Unknown [id number] 2.16.840.1.128027.3.579.2. 462 Unknown [id number] 2.16.840.1.945103.3.579.2. 462 Unknown [id number] 2.16.840.1.370946.3.579.2. 462 Unknown [id number] 2.16.840.1.265835.3.579.2. 462 Unknown [id number] 2.16.840.1.861723.3.579.2. 462 Unknown [id number] 2.840.1.768450.3.579.2. 462 Unknown [id number] 2.840.1.148985.3.579.2. 462 Unknown [id number] 2.840.1.484054.3.579.2. 462 Unknown [id number] 2.840.1.073322.3.579.2. 462 Unknown [id number] 2.840.1.303500.3.579.2. 462 Unknown [id number] 2.16.840.1.510124.3.579.2. 462 Unknown [id number] 2.840.1.416261.3.579.2. 462 Unknown [id number] 2.840.1.146622.3.579.2. 462 Unknown [id number] 2.16840.1.856441.3.579.2. 462 Unknown [id number] 2.16.840.1.291707.3.579.2. 462 Unknown [id number] 2.16.840.1.076246.3.579.2. 462 Unknown [id number] 2.16.840.1.893090.3.579.2. 462 Unknown [id number] 2.16840.1.716753.3.579.2. 462 Unknown [id number] 2.840.1.993480.3.579.2. 462 Unknown [id number] 2.840.1.331572.3.579.2. 462 Unknown [id number] 2.840.1.568706.3.579.2. 462 Unknown [id number] 2.840.1.012850.3.579.2. 462 Unknown [id number] 2.840.1.129412.3.579.2. 462 Unknown [id number] 2.840.1.967996.3.579.2. 462 Unknown [id number] 2.840.1.186875.3.579.2. 462 Unknown [id number] 2.840.1.784371.3.579.2. 462 Unknown [id number] 2.840.1.034661.3.579.2. 462 Unknown [id number] .840.1.067420.3.579.2. 462 Unknown [id number] 2.840.1.357194.3.579.2. 462 Unknown [id number] .840.1.289124.3.579.2. 462 Unknown [id number] .840.1.091786.3.579.2. 462 Unknown [id number] .840.1.701862.3.579.2. 462 Unknown [id number] .840.1.168823.3.579.2. 462 Unknown [id number] 2.840.1.685551.3.579.2. 462 Unknown [id number] 2.840.1.650817.3.579.2. 462 Unknown [id number] 2.840.1.412888.3.579.2. 462 Unknown [id number] 2.16.840.1.024713.3.579.2. 462 Unknown [id number] 2.16.840.1.261897.3.579.2. 462 Unknown [id number] 2.16.840.1.122329.3.579.2. 462 Unknown [id number] 2.16.840.1.913837.3.579.2. 462 Unknown [id number] 2.16.840.1.667328.3.579.2. 462 Social History Date Type Detail Facility Start: 11-23-2011 End: 09-16-2023 Tobacco smoking status NHIS Never smoked tobacco [facility] Start: 06-17-2021 End: 07-19-2022 Alcohol intake Current non-drinker of alcohol (finding) [facility] Start: 1940 Sex Assigned At Not on file [facility] Start: 12-02-2021 End: 06-26-2022 Exposure to SARS-CoV-2 (event) Not sure [facility] [facility] Start: 11-23-2011 End: 06-02-2023 Tobacco use and exposure Smokeless tobacco non-user [facility] Start: 01-12-2023 End: 11-23-2023 Tobacco smoking status GAIS Unknown if ever smoked [facility] Start: 1940 Sex Assigned At Female [facility] Start: 07-15-2020 End: 03-10-2023 History of Social function [facility] Work Phone: Start: 07-15-2020 End: 03-10-2023 Tobacco use panel [facility] Work Phone: Adult Depression Screening Assessment [address] [facility] Work Phone: Start: 06-02-2023 End: 03-14-2024 Tobacco smoking status NHIS Ex-smoker [facility] History of tobacco use Current smoker [facility] History of tobacco use Cigarette Smoker [facility] Start: 06-04-2023 Gender identity Identifies as female gender (finding) [facility] Start: 06-04-2023 Sexual orientation Heterosexual (fin ding) [facility] Start: 11-09-2024 End: 11-24-2024 Sex Female (finding) [facility] Goals Date Patient Goal Desired Activity /State Functional Status Date Assessment Result Facility 02-14-2024 Functional Status Room check performed [facility] 02-14-2024 Functional Status Refused [facility] 02-14-2024 Functional Status [facility] 02-14-2024 Functional Status [facility] 02-13-2024 Functional Status [facility] 02-13-2024 Functional Status Skin Care Prev entative Intervention(s) heel(s)s elevated [facility] 02-13-2024 Functional Status [facility] 02-13[facility] Functional Status Rosa Maria Brooke [facility] 02-12-2024 Functional Status Lunch Percent 50 [facility] 02-12-2024 Functional Status Rosa Maria [facility] 02-11-2024 Functional Status Rosa Maria [facility] 02-11-2024 Functional Status Min A Rosa Maria [facility] 02-11-2024 Functional Status bilateral knee high removed/off [facility] 02-11-2024 Functional Status Reason SCD Rem nuvia/Off Patient refused [facility] 02-10-2024 Functional Status [facility] 02-10-2024 Functional Status Rosa Maria [facility] 02-10-2024 Functional Status Rosa Maria Brooke [facility] 02-09-2024 Functional Status Rosa Maria Brooke [facility] 02-09-2024 Functional Status Pt. normally d oes sponge bathing. [facility] 02-09-2024 Functional Status NPO Status Maintained A [facility] 02-08-2024 Functional Status [facility] 02-07-2024 Functional Status [facility] 02-07-2024 Functional Status [facility] Functional Status Transparent silicone dr essing [facility] 02-07-2024 Functional Status Assistive Equi pment elevated on pillows [facility] 02-07-2024 Functional Status [facility] 02-06-2024 Functional Status [facility] 02-06-2024 Functional Status [facility] 02-06-2024 Functional Status [facility] 02-05-2024 Functional Status None [facility] 02-05-2024 Functional Status Awake Rosa Maria gould [facility] 02-04-2024 Functional Status Rosa Maria gould [facility] 02-04-2024 Functional Status Identified as high risk, Fall ID band on, Door open, Non-Slip footwear, Room check performed [facility] 02-04-2024 Functional Status Rosa Maria gould [facility] 02-04-2024 Functional Status Rosa Maria gould [facility] 02-04-2024 Functional Status 25 Rosa Maria Brooke [facility] 02-04-2024 Functional Status Rosa Maria Brooke [facility] 02-03-2024 Functional Status Up to Chair Re rohini up in chair [facility] 02-03-2024 Functional Status Pt. normally d oes sponge bathing. [facility] 02-03-2024 Functional Status Rosa Maria Brooke [facility] 02-01-2024 Functional Status Single level home [facility] 02-01-2024 Functional Status Sensory Deficits None A [facility] 02-01-2024 Functional Status Max A Rosa Maria Brooke [facility] 02-01-2024 Functional Status Door open, Non-Slip footwear, Room check performed [facility] 02-01-2024 [facility] Status [facility] Functional Status Rosa Maria Brooke [facility] 01-31-2024 Functional Status Repositioned right side [facility] 01-31-2024 Functional Status Rosa Maria Brooke [facility] 01-31-2024 Functional Status [facility] 01-31-[facility]24 Functional Status Rosa Maria Brooke [facility] 01-31-2024 Functional Status Rosa Maria Brooke [facility] 01-31-2024 Functional Status Rosa Maria Brooke [facility] 01-30-2024 Functional Status Foam dressing Rosa Maria Rodriguez ospital [facility] 01-30-2024 Functional Status Rosa Maria Ho spital [facility] 01-29-2024 Functional Status Dinner Percent 25 [facility] 01-29-2024 Functional Status Max A [facility] 01-29-2024 Functional Status Rosa Maria Ho spital [facility] 01-29-2024 Functional Status [facility] 01-28-2024 Functional Status Rosa Maria Ho spital [facility] 01-28-2024 Functional Status Rosa Maria Ho spital [facility] 01-28-2024 Functional Status [facility] 01-27-2024 Functional Status Rosa Maria Ho spital [facility] 01-27-2024 Functional Status Mod A Rosa Maria Ho [facility] 01-27-2024 Functional Status [facility] 01-27-2024 Functional Status Min A 9 Rosa Maria Ho [facility] 01-26-2024 Functional Status Independent [facility] 01-26-2024 Functional Status Rosa Maria Ho [facility] 01-25-2024 Functional Status [facility] 01-25-2024 Functional Status [facility] 01-24-2024 Functional Status Single level home [facility] 01-23-2024 Functional Status Rosa Maria Ho [facility] 01-23-2024 Functional Status [facility] 01-22-2024 Functional Status Rosa Maria Ho [facility] 01-22-2024 Functional Status Sensory Deficits None A [facility] 12-11-2023 Functional Status Repositions self [facility] 12-11-2023 Functional Status Room check performed [facility] 12-11-2023 Functional Status Rosa Maria Ho [facility] 12-11-2023 Functional Status Rosa Maria Ho [facility] 12-10-2023 Functional Status Activity Statu s ADL Sleeping quietly with easy respirations [facility] 12-10-2023 Functional Status bilateral knee high removed/off [facility] 12-10-2023 Functional Status Rosa Maria Ho [facility] 12-10-2023 Functional Status Rosa Maria Ho [facility] 12-10-2023 Functional Status Mod I Rosa Maria Ho [facility] 12-10-2023 Functional Status [facility] Functional Status Rosa Maria Ho [facility] 12-09-2023 Functional Status [facility] 12-09-2023 Functional Status Supervised Rosa Maria Brooke [facility] 12-09-2023 Functional Status Rosa Maria Ho [facility] 12-09-2023 Functional Status Rosa Maria Ho [facility] 12-08-2023 Functional Status Rosa Maria Ho [facility] 12-08-2023 Functional Status Rosa Maria Brooke [facility] 12-07-2023 Functional Status Rosa Maria Brooke [facility] 12-07-2023 Functional Status Rosa Maria Brooke [facility] 12-07-2023 Functional Status Linen Change Done [facility] 12-07-2023 Functional Status Rosa Maria Brooke [facility] 12-06-2023 Functional Status Rosa Maria Brooke [facility] 12-06-2023 Functional Status Rosa Maria Brooke [facility] 12-05-2023 Functional Status Skin Care Prev entative Intervention(s) heel(s)s elevated [facility] 12-05-2023 Functional Status Rosa Maria Brooke [facility] 12-05-2023 Functional Status Rosa Maria Brooke [facility] 12-05-2023 Functional Status Rosa Maria Brooke [facility] 12-04-2023 Functional Status Lunch Percent 50 [facility] 12-04-2023 Functional Status Rosa Maria Brooke [facility] 12-04-2023 Functional Status Rosa Maria Brooke [facility] 12-03-2023 Functional Status Independent 10 [facility] 12-03-2023 Functional Status Rosa Maria Brooke [facility] 12-02-2023 Functional Status Up to Chair Returned to bed [facility] 12-02-2023 Functional Status Rosa Maria Brooke [facility] 12-02-2023 Functional Status Dinner Percent 5 [facility] 12-02-2023 Functional Status Rosa Maria Brooke [facility] 12-01-2023 Functional Status Rosa Maria Brooke [facility] 12-01-2023 Functional Status Rosa Maria Brooke [facility] 11-30-2023 Functional Status Rosa Maria Brooke [facility] 11-30-2023 Functional Status Rosa Maria Brooke [facility] 11-29-2023 Functional Status Mod A Rosa Maria Brooke [facility] 11-28-2023 Functional Status Done Rosa Maria Brooke [facility] 11-27-2023 Functional Status Single level home [facility] 11-27-2023 Functional Status Rosa Maria Brooke [facility] 11-26-2023 Functional Status Sensory Deficits None A [facility] 11-26-2023 Functional status Chair [facility] Work Phone: Mental Status Date Assessment Result Facility 02-14-2024 Mental Status Orientation Asse ssment Identifies self, Not oriented to time, Oriented to person 1 [facility] 02-14-2024 Mental Status [facility]ed x [facility] 02-13-[facility]24 [facility] 02-13-2024 [facility] 02-04-2024 Mental Status Not oriented to place, Not oriented to time, Not oriented to situation, Forgetful, Follows simple commands [facility] 02-04-2024 Mental Status [facility] 02-03-2024 Mental Status [facility] 02-01-2024 Mental Status Orientation Asse ssment Oriented x 4 [facility] 02-01-2024 Mental Status Not oriented to person, Not oriented to time [facility] 01-31-2024 Mental Status [facility] 01-31-2024 Mental Status [facility] 01-31-2024 Mental Status [facility] 12-11-2023 Mental Status Oriented x 4 [facility] 12-10-2023 Mental Status [facility] 12-10-2023 Mental Status [facility] 12-10-2023 Mental Status [facility] 11-26-2023 Cognitive function Voice/Name [facility] Work Phone: 11-23-2023 Cognitive function Level Of Cons ciousness Awake;Alert;Appropriate;Follow s Commands [facility] Work Phone: Clinical Notes 06-18-2021 to 02-15-2024 [...] was identified. 02/15/2024 by Carl Encarnacion MD [facility] 02-15-2024 Miscellaneous Notes The following approved medication [...] 2024 8:15 AM documented in this encounter [facility] 02-15-2024 Telephone encounter Note Prescription Refill Information [...] Puckett LPN February 15, 2024 11:[address] [facility] 02-15-2024 Telephone encounter Note Prescription Refill Information [...] Stephanie Estrada February 15, 2024 8:[address] [facility] 02-14-2024 Hospital Discharg e instructions Patient Education [...] Follow these instructions at home: Medicines Take gpge-tbj-wnlewqe and prescription medicines only as told by [...] and water are not available, use hand schedule clerk. You should wash your hands: ?After using [...] health care provider. Practice good oral hygiene. [place] your teeth two times a day, and [...] 05/09/2007 Document Revised: 12/15/2019 Document Reviewed: 12/15/2019 [employer] Patient Education 2019 [employer]. Follow Up Care 02/04/2024 10:08:29 With:LINDA ANNE BA, MD, Infectious Disease, Infectious Disease Group Address: [facility] [address] [place] [address] [phone] When:Within 3 Week(s) Comments:Schedule appointment as soon as possible With:Alyson Osseo [facility] skilled care, report to [phone] Address:Unknown When:1-2 days With:ESTER BEJARANO Address: [address] [address]- Business (1) When:1-2 days [facility] 02-14-2024 Note Discharge Instructions Thank you for allowing [facility] to assist you with your healthcare needs. The following is important discharge information regarding your hospital visit. Your Care Team ESTER BEJARANO MSN, TELEGRAPH OPERATOR What to do next Instructions From Your [...] Wednesday and send results to fax number [phone] Anne Please call Dr. Anne's office for a follow-up appointment in 2-4 weeks, Phone number [phone]. Scheduled Follow-Up Appointments Appointment Type When Where Contact Information StatusEcho - Echocardiogram Adult 08/21/2024 11:00 AM [facility] [phone] Confirmed CV OV 09/21/2024 01:15 PM HARI Rosa Maria [facility] [place] Confirmed Follow Up Appointments Follow Up with LINDA ANNE BA, MD, Infectious Disease, Infectious Disease Group When:In 3 weeks Where:[facility] [address] [place] [address]- [phone] Additional Information: Schedule appointment as soon as possible Follow Up with Alyson Blank for skilled care, report to [phone] When:Within 1-2 days Follow Up with ESTER BEJARANO When:Within 1-2 days Where:[facility] [address] [place] [address]- Business (1) The Following Activity and Diet [...] Follow these instructions at home: Medicines Take rsay-ktx-iftuwnm and prescription medicines only as told by [...] and water are not available, use hand schedule clerk. You should wash your hands: ? After [...] health care provider. Practice good oral hygiene. [place] your teeth two times a day, and [...] 05/09/2007 Document Revised: 12/15/2019 Document Reviewed: 12/15/2019 [employer] Patient Education 2020 [employer] Additional Information VACCINATE! IT SAVES LIVES! Members of the community who have not yet received the COVID-19 vaccine and would like to receive it can visit one of [facility] vaccine clinics. There are many vaccine clinic locations within the [facility]. For locations and available times, please visit [email or web address] It is important to note that some COVID mobile vaccine clinics are held outdoors and may be canceled in rainy or stormy conditions. To learn more about pediatric vaccinations (ages 5-11), we invite you to visit the [facility] webpage. https://www.[email or web address].org/ pages/7869-Wbxof-Ulggqmlhumx-Fr ifldweyt-Xhgnk-Nvcgdvdhj.html To learn more about the COVID-19 vaccine, we invite you to visit the CDC website for a list of frequently asked questions.https://www.cdc.gov/c oronavirus/2019-ncov/vaccines/f aq.html [employer] Patient Portal Access Instructions: Stay connected with your healthcare team and access your personal medical information anytime with the [employer] Patient Portal. Please follow the directions below to create your [employer] account: 1.Access the email account you provided upon registration to the hospital/physician office.2.Look for an invitation email from [facility].3.Open the email and access the invitation link: [facility].4.Fill in the required martinez to create your account. To access your account, visit [email or web address]. Click the blue button labeled Access Patient [...] you will allow to register on the [facility] Patient Portal for access to your information. You can also access the [facility] Patient Portal on the [facility] guille. Simply click on Patient Portal and then log into your account. If you would like to receive a full copy of your medical records, please contact the [facility] Medical Records Department by calling [phone], Wednesday through Wednesday between 8 a.m. and [...] Call your local pharmacy or go to [email or web address] to find one close to you.3.Make use of household items: Use cat litter or old coffee grounds to dispose medications if other options are not available. Mix your drugs with these household products, seal them in an airtight container and throw it into the garbage. Call [facility]: [phone] to be sure your drugs can be [...] aware that I should contact my doctor. Patient/Dockworker Signature: Date/Time: Relationship to Patient: Witness Name/Signature: Date/Time: [facility] 02-14-2024 Note Discharge Instructions Thank you for allowing [facility] to assist you with your healthcare needs. The following is important discharge information regarding your hospital visit. Your Care Team ESTER BEJARANO MSN, TELEGRAPH OPERATOR What to do next Instructions From Your [...] Wednesday and send results to fax number [phone] Anne Please call Dr. Anne's office for a follow-up appointment in 2-4 weeks, Phone number [phone]. Scheduled Follow-Up Appointments Appointment Type When Where Contact Information StatusEcho - Echocardiogram Adult 08/21/2024 11:00 AM [facility] [phone] Confirmed CV OV 09/21/2024 01:15 PM [facility] Confirmed Follow Up Appointments Follow Up with LINDA ANNE BA, MD, Infectious Disease, Infectious Disease Group When:In 3 weeks Where:[facility] [address] [place] [address]- [phone] Additional Information: Schedule appointment as soon as possible Follow Up with [facility], report to [phone] When:Within 1-2 days Follow Up with ESTER BEJARANO When:Within 1-2 days Where:[address] [address]- [facility] (1) The Following Activity and Diet Have [...] Follow these instructions at home: Medicines Take yubr-gpb-apnxdnc and prescription medicines only as told by [...] and water are not available, use hand schedule clerk. You should wash your hands: ? After [...] health care provider. Practice good oral hygiene. [place]ock your teeth two times a day, and [...] 05/09/2007 Document Revised: 12/15/2019 Document Reviewed: 12/15/2019 [employer] Patient Education 2020 [employer] Additional Information VACCINATE! IT SAVES LIVES! Members of the community who have not yet received the COVID-19 vaccine and would like to receive it can visit one of [facility] vaccine clinics. There are many vaccine clinic locations within the [facility]. For locations and available times, please visit [email or web address] It is important to note that some COVID mobile vaccine clinics are held outdoors and may be canceled in rainy or stormy conditions. To learn more about pediatric vaccinations (ages 5-11), we invite you to visit the [facility] webpage. https://www.[facility].org/ pages/7511-Dyfgf-Xzqdksbijsx-Fr nykhpzrh-Slshs-Dzzkornml.html To learn more about the COVID-19 vaccine, we invite you to visit the CDC website for a list of frequently asked questions.https://www.cdc.gov/c oronavirus/2019-ncov/vaccines/f aq.html [employer] Patient Portal Access Instructions: Stay connected with your healthcare team and access your personal medical information anytime with the [employer] Patient Portal. Please follow the directions below to create your [employer] account: 1.Access the email account you provided upon registration to the hospital/physician office.2.Look for an invitation email from [facility].3.Open the email and access the invitation link: Accept Invitation to [employer].4.Fill in the required martinez to create your account. To access your account, visit [email or web address]. Click the blue button labeled Access Patient [...] you will allow to register on the [facility] Patient Portal for access to your information. You can also access the [employer] Patient Portal on the [employer]*where guille. Simply click on Patient Portal and then log into your account. If you would like to receive a full copy of your medical records, please contact the [facility] Medical Records Department by calling [phone], Wednesday through Wednesday between 8 a.m. and [...] Call your local pharmacy or go to [email or web address] to find one close to you.3.Make use of household items: Use cat litter or old coffee grounds to dispose medications if other options are not available. Mix your drugs with these household products, seal them in an airtight container and throw it into the garbage. Call [facility]: [phone] to be sure your drugs can be [...] aware that I should contact my doctor. Patient/Dockworker Signature: Date/Time: Relationship to Patient: Witness Name/Signature: Date/Time: [facility] 02-14-2024 Note Discharge Instructions Thank you for allowing [facility] Maria to assist you with your healthcare needs. The following is important discharge information regarding your hospital visit. Your Care Team ESTER BEJARANO, TELEGRAPH OPERATOR What to do next Instructions From Your [...] Wednesday and send results to fax number [phone] Anne Please call Dr. Anne's office for a follow-up appointment in 2-4 weeks, Phone number [phone]. Scheduled Follow-Up Appointments Appointment Type When Where Contact Information StatusEcho - Echocardiogram Adult 08/21/2024 11:00 AM [facility] [phone] Confirmed CV OV 09/21/2024 01:15 PM [facility] Conf[facility] Follow Up Appointments Follow Up with LINDA ANNE BA, MD, Infectious Disease, Infectious Disease Group When:In 3 weeks Where:[facility] [address] [place] [address]- [phone] Additional Information: Schedule appointment as soon as possible Follow Up with [facility], report to [phone] When:Within 1-2 days Follow Up with ESTER BEJARANO When:Within 1-2 days Where:[facility] [address] [id number] Business (1) The Following Activity and Diet [...] Follow these instructions at home: Medicines Take pokm-zrp-wjxgres and prescription medicines only as told by [...] and water are not available, use hand schedule clerk. You should wash your hands: ? After [...] health care provider. Practice good oral hygiene. [place] your teeth two times a day, and [...] Document Reviewed: 12/15/2019 Elsevier Patient Education 2020 [employer] Additional Information VACCINATE! IT SAVES LIVES! Members of the community who have not yet received the COVID-19 vaccine and would like to receive it can visit one of [facility] vaccine clinics. There are many vaccine clinic locations within the [facility]. For locations and available times, please visit [email or web address] It is important to note that some COVID mobile vaccine clinics are held outdoors and may be canceled in rainy or stormy conditions. To learn more about pediatric vaccinations (ages 5-11), we invite you to visit the [facility] webpage. https://www.[facility].org/ pages/6405-Xzwvx-Kuvirbovygd-Fr mmnhqdig-Jdowt-Bxcixhosl.html To learn more about the COVID-19 vaccine, we invite you to visit the CDC website for a list of frequently asked questions.https://www.cdc.gov/c oronavirus/2019-ncov/vaccines/f aq.html [facility] Patient Portal Access Instructions: Stay connected with your healthcare team and access your personal medical information anytime with the [facility] Patient Portal. Please follow the directions below to create your [facility] account: 1.Access the email account you provided upon registration to the hospital/physician office.2.Look for an invitation email from [facility].3.Open the email and access the invitation link: Accept Invitation to [facility].4.Fill in the required martinez to create your account. To access your account, visit [email or web address]. Click the blue button labeled Access Patient [...] you will allow to register on the [facility] Patient Portal for access to your information. You can also access the [facility] on the [facility] trueAnthemwhere guille. Simply click on Patient Portal and then log into your account. If you would like to receive a full copy of your medical records, please contact the [facility] Medical Records Department by calling [phone], Wednesday through Wednesday between 8 a.m. and [...] Call your local pharmacy or go to [email or web address] to find one close to you.3.Make use of household items: Use cat litter or old coffee grounds to dispose medications if other options are not available. Mix your drugs with these household products, seal them in an airtight container and throw it into the garbage. Call [facility]: [phone] to be sure your drugs can be [...] aware that I should contact my doctor. Patient/Dockworker Signature: Date/Time: Relationship to Patient: Witness Name/Signature: Date/Time: [facility] 02-13-2024 Note Date of Service 02/13/2024 Subjective [...] Wednesday and send results to fax number [phone] Anne Please call Dr. Anne's office for a follow-up appointment in 2-4 weeks, Phone number [phone]. PICC line placed 02/11/2024. Functioning well. Regards to the patient's retention: Appears to have some symptoms of constipation, which is now improved. Allen catheter removed Resume home medications as deemed appropriate. Point of contact: Patient's daughter Stefano: [phone] Above plan of care was discussed with the patient at bedside, all questions answered appropriately. This is a note transcribed by me, the attending physician on service using the '[employer]' dictation software. Please excuse any grammatical errors, repetitions/duplications if any are present in the entirety of this note. Thank you. Anticipated Date of Discharge Awaiting pre-CERT, hopeful discharge tomorrow Digitally Signed by DRE PHIPPS MD on 02/13/2024 08:09 PM [facility] 02-13-2024 Cardiology Progress note Date of Service [...] ALIA MCCORMACK MD on 02/08/2024 10:57 PM [facility] 02-13-2024 Cardiology Consul t note Date of [...] for SALAZAR evaluation Reported Takotsubo cardiomyopathy 01/2024 [facility] Filiform mobile echodensity on aortic valve, [...] be discussed with Dr. Nuha Curtis MD [employer] Messenger guille or Pager [phone] Problem List/Past Medical History Ongoing Acquired hypothyroidism [...] CANDIDA CURTIS MD on 02/05/2024 01:36 PM [facility] 02-13-2024 Cardiology Progress note Date of Service [...] ALIA MCCORMACK MD on 02/07/2024 05:47 PM [facility] 02-12-2024 Note Date of Service 02/12/2024 Subjective [...] Wednesday and send results to fax number [phone] Anne Please call Dr. Anne's office for a follow-up appointment in 2-4 weeks, Phone number [phone]. PICC line placed 02/11/2024. Functioning well. Regards to the patient's retention: Appears to have some symptoms of constipation, which is now improved. Allen catheter removed Resume home medications as deemed appropriate. Point of contact: Patient's daughter Stefano: [phone] Above plan of care was discussed with the patient at bedside, all questions answered appropriately. This is a note transcribed by me, the attending physician on service using the '[employer]' dictation software. Please excuse any grammatical errors, repetitions/duplications if any are present in the entirety of this note. Thank you. Anticipated Date of Discharge Await pre-CERT: Pre-CERT is obtained, patient can be discharged. Digitally Signed by DRE PHIPPS MD on 02/12/2024 01:17 PM [facility] 02-12-2024 Cardiology Progress note Date of Service [...] ALIA MCCORMACK MD on 02/09/2024 09:54 PM [facility] 02-11-2024 Procedure note Vascular Access Team Post Procedure Note Procedure: Peripherally Inserted Central Catheter (PICC) Indication: [facility] Antibiotics Details: Consult for PICC Placement received. [...] Length: 0cm Arm Circ: 32cm Lot #: [id number] Complications: None Inserted by: Reno Tapia RN Plan: Chest x-ray complete and confirmed PICC placement in SVC. May use PICC now per protocol. Digitally Signed by MICH Tapia Nora A on 02/11/2024 05:39 PM [facility] 02-11-2024 Note ORIGINAL EXAMINATION: ONE XRAY VIEW [...] Date: 02/11/2024 5:26:58 PM [facility]ing [facility] 02-11-2024 Note Date of Service 02/11/2024 Subjective [...] Wednesday and send results to fax number [phone] Anne Please call Dr. Anne's office for a follow-up appointment in 2-4 weeks, Phone number [phone]. Awaiting PICC line placement. Regards to the patient's retention: Appears to have some symptoms of constipation, which is now improved. Will perform voiding trial today. Resume home medications as deemed appropriate. Point of contact: Patient's daughter Stefano: [phone] Above plan of care was discussed with the patient at bedside, all questions answered appropriately. This is a note transcribed by me, the attending physician on service using the '[employer]' dictation software. Please excuse any grammatical errors, repetitions/duplications if any are present in the entirety of this note. Thank you. Anticipated Date of Discharge Patient can be discharged once PICC line is placed for IV antibiotics and when pre-CERT is obtained. Digitally Signed by DRE PHIPPS MD on 02/11/2024 11:42 AM [facility] 02-10-2024 Note Patient's cervical spine is contracted and follow commands poorly. Procedure can not be done safely as ordered. Consider CT imaging for valve evaluation Digitally Signed by PIO DONAHUE MD on 02/09/2024 11:45 AM [facility] 02-09-2024 Infectious diseas e Progress note Date [...] in overall coloring, BLE mild rash/dry skin PLUNKET NURSE, diffuse ecchymosis INCISIONS/DRESSINGS: None EXTREMITIES: +1 BLE/pedal [...] Lima Vital RN on 02/09/2024 10:08 AM [facility] 02-09-2024 Note . MICRO - Microbiology PROCEDURE: [...] Locations *1: This test was performed at: [facility], [address] [place] [address], [id number] , [facility] ([place]) 02-09-2024 Note . MICRO - Microbiology PROCEDURE: [...] Locations *1: This test was performed at: [facility], [address] [place] [address], [id number] , [facility] ([place]) 02-09-2024 Cardiology Progress note Date of Service [...] ALIA MCCORMACK MD on 02/09/2024 09:54 PM [facility] 02-09-2024 Note Exam Date Time Procedure Performing Provider Status 02/09/24 11:48 AM Transesophageal Echo cardiogram - CV Auth (Verified) [facility] 07-03-2024 Note Patient's cervical spine is contracted and follow commands poorly. Procedure can not be done safelyas ordered. Consider CT imaging for valve evaluation Digitally Signed by PIO DONAHUE MD on 02/09/2024 11:45 AM [facility] [id number] Infectious disease Progress note Date of Service 02/09/2024 Objective Vitals and Measurements T: 36.7 C (Oral) TMIN: 36.5 C (Oral) TMAX: 36.7 C (Oral) HR: 64 RR: 18 BP: 113/42 SpO2: 93% Physical Exam Chart reviewed, patient examined. Patient appears alert and oriented to self, she is aware of beingin a hospital but is unable to identify [facility], appears forgetful but does FSC, resting in [...] Lima Vital RN on 02/09/2024 10:08 AM [facility]Adklzbbb18-64-2875 Cardiology Progress note Date of Service 02/08/2024 [...] ALIA MCCORMACK MD on 02/08/2024 10:57 PM [facility]Pxfjhfdb15-89-9740 Infectious disease Progress note Date of Service [...] in overall coloring, BLE mild rash/dry skin PLUNKET NURSE INCISIONS/DRESSINGS: None EXTREMITIES: +1 BLE/pedal edema, BLE [...] 02/08/2024 10:26 AM Digitally Signed by CIPRIANO DANG MD on 02/09/2024 02:37 PM [facility]Ixnvqmgw67-51-0781 Cardiology Progress note Date of Service 02/07/2024 [...] ALIA MCCORMACK MD on 02/07/2024 05:47 PM [facility] MemorialGeclwvcm52-03-5435 Infectious disease Progress note Date of Service [...] blood cultures positive for E faecalis at [facility] with echocardiogram showing filiform strand-like echodensity so was transferred to [facility] for further evaluation. ID has been following [...] by JANAY SINHA on 02/07/2024 08:29 PM [facility] MemorialFjuuuwus20-69-6831 Palliative care Progress note Date of Service [...] to want palliative care she would need [place]'s palliative care and hospice team as she lives outside of our jurisdiction. CODE STATUS confirmed patient's CODE STATUS is a DNR CCA DNI. Advanced directives patient expresses that she has a healthcare power of assistant district attorney she is named her daughter Stefano. [...] MARIA ESTHER ALBRIGHT on 02/07/2024 10:39 AM [facility] MemorialSchvrpbk14-09-9949 Note. MICRO - Microbiology PROCEDURE: Blood Culture (bacterial) [*1] SOURCE: Blood BODY SITE: COLLECTED DATE/TIME: 02/03/2024 05:50 EDT RECEIVED DATE/TIME: 02/03/2024 15:21 EDT START DATE/TIME: 02/03/2024 15:21 EDT FREE TEXT SOURCE: FINAL REPORTS Final Report [] Verified Date/Time/Personnel: 02/06/2024 10:55 EDT Enterococcus faecalis Isolated from anaerobe bottle only. Refer to previous culture for susceptibility. [id number] PRELIMINARY REPORTS Preliminary Report [] Verified Date/Time/Personnel: 02/03/2024 15:59 EDT Culture has been received in lab and is no growth to date. Routine cultures are held for 5 days. STAINS GSANA [] Verified Date/Time/Personnel: 02/05/2024 07:33 EDT Gram Positive Cocci in pairs Performing Locations *1: This test was performed at: [facility], [address] [place] [address], [id number]- , [facility] ([place])02-05-2024 Infectious disease Consult note Date of Service [...] answered, she was comfortable in bed having [facility] Review of Systems Fatigue at times otherwise [...] for SALAZAR evaluation Reported Takotsubo cardiomyopathy 01/2024 [facility] Filiform mobile echodensity on aortic valve, [...] ANNE BA, MD on 02/05/2024 05:13 PM [facility] MemorialMoxrcnds69-44-3768 Palliative care Consult note Date of Service [...] with the patient. She was transferred from [place] for further evaluationfor bacteremia, and consideration of [...] that she has a healthcare power of assistant district attorney she is named her daughter Stefano. [...] ESTHER ALBRIGHT APRN-KACI on 02/05/2024 02:14 PM [facility] MemorialOvicfttt47-28-0006 Evaluation + Plan noteExtracted from: Title:History and [...] Appointments Appointment Date:08/21/2024 11:00:00 AM Scheduled Provider: Location:[facility] Appointment Type:Echo - Echocardiogram Adult Appointment Date:09/21/2024 01:15:00 PM Scheduled Provider: Location:[facility] Appointment Type:CV OV [facility] 06-29-2024 Cardiology Consult note Date of Service [...] for SALAZAR evaluation Reported Takotsubo cardiomyopathy 01/2024 [facility] Filiform mobile echodensity on aortic valve, [...] be discussed with Dr. Nuha Curtis MD [employer] Messenger guille or Pager [phone] Problem List/Past Medical History Ongoing Acquired hypothyroidism [...] on 02/05/2024 12:07 PM Digitally Signed by CANDDIA CURTIS MD on 02/05/2024 01:36 PM [facility] MemorialBhiiwgbw48-04-7659 History and physical note Date of Service [...] pain, abdominal pain. She was admitted to [facility] On 02/01/2024. Prior to that, she was [...] self only. Believes that she is in [place] and the year is 2012. Abd: Not [...] NIGHAT OBRIEN MD on 02/05/2024 03:06 AM [facility] MemorialIayhfpcg98-63-6551 Note Discharge Instructions Thank you for allowing [facility] to assist you with your healthcare needs. The following is importantdischarge information regarding your hospital visit. Your Care Team ESTER BEJARANO, TELEGRAPH OPERATOR Your Diagnosis Bacteremia Hypertension Takotsubo cardiomyopathy Weakness What to do next Scheduled Follow-Up Appointments Appointment Type When Where Contact Information StatusEcho - Echocardiogram Adult 08/21/2024 11:00 AM [facility] [phone] Confirmed CV OV 09/21/2024 01:15 PM [facility] V[facility] [place] Confirmed Follow Up Appointments Follow Up with BROOKS OSUNA When:01/10/2024 09:30 AM EDT Where:[address] [address]- Additional Information: This is your post-hospital cardiology [...] to receive it can visit one of [facility] vaccine clinics. There are many vaccine clinic locations within the [facility]. For locations and available times, please visit [email or web address] It is important to note that some COVID mobile vaccine clinics are held outdoors and may be canceled in rainy or stormy conditions. To learn more about pediatric vaccinations (ages 5-11), we invite you to visit the [employer] webpage. https://www.[facility].org/pages/4038-Tylda-Wkxmexlgcep-Aboeeefyox-Yiorm-Tks stions.htmlTo learn more about the COVID-19 vaccine, we invite you to visit the CDC website for a list of frequently asked questions.https://www.cdc.gov/coronavirus/2019-ncov/vaccines/faq.html [facility] Patient Portal Access Instructions: Stay connected with your healthcare team and access your personal medical information anytime with the [facility] Patient Portal. Please follow the directions below to create your [employer] account: 1.Access the email account you provided upon registration to the hospital/physician office.2.Look for an invitation email from [facility].3.Open the email and access the invitation link: AcceptInvitation to [facility].4.Fill in the required martinez to create your account. To access your account, visit [email or web address]. Click the blue button labeled Access Patient [...] who you will allowto register on the [facility] Patient Portal for access to your information. You can also access the [facility] Patient Portal on the [employer]*where guille. Simply click on Patient Portal and then log into your account. If you would like to receive a full copy of your medical records, please contact the [facility] Medical Records Department by calling [phone], Wednesday through Wednesday between 8 a.m. and [...] Call your local pharmacy or go to [email or web address] to find one close to you.3.Make use of household items: Use cat litter or old coffee grounds to dispose medications if other options arenot available. Mix your drugs with these household products, seal them in an airtight container andthrow it into the garbage. Call [facility]: [phone] to be sure your drugs can be [...] aware that I should contact my doctor. Patient/Dockworker Signature: Date/Time: Relationship to Patient: Witness Name/Signature: Date/Time: [facility]06-28[facility]24 Note Date of Service 02/04/2024 Chief Complaint bacteremia Subjective Patient seen and evaluated this morning while resting in bed, daughter at the bedside. Patient is now agreeable to transfer to another facility for SALAZAR and possible ID consult. Family requests that [facility] be called first. [facility] states no beds today at all and does not offer optionof going on a list. Family is agreeable to transfer to [facility] but there is quite a wait [...] was collected was negative. Urine culture from [facility] grew actinomyces naeslundii. She was treated with [...] to inpatient due to bacteremia.Patient accepted by [facility] and has precert good through 02/07. Continue PT and OT while here. 4. Takotsubo cardiomyopathy Found during recent heart cath at [facility]. She was started on Coreg 3.125 mg [...] by KUMAR JAMES on 02/04/2024 03:24 PM [facility]06-28-2024 Note. MICRO - Microbiology PROCEDURE: Blood Culture (bacterial) [*1] SOURCE: Blood BODY SITE: COLLECTED DATE/TIME: 02/02/2024 06:25 EDT RECEIVED DATE/TIME: 02/02/2024 17:02 EDT START DATE/TIME: 02/02/2024 17:02 EDT FREE TEXT SOURCE: FINAL REPORTS Final Report [] Verified Date/Time/Personnel: 02/04/2024 11:35 EDT Enterococcus faecalis Isolated from aerobe bottle only. Refer to previous culture for susceptibility. [id number] collected 01-31-24 PRELIMINARY REPORTS Preliminary Report [] [...] Locations *1: This test was performed at: [facility], [address] [place] [address], [address] , [facility] ([place])02-03-2024 Note Date of Service 02/03/2024 Chief Complaint [...] was collected was negative. Urine culture from [facility] grew actinomyces naeslundii.She was treated with cefdinir. [...] to inpatient due to bacteremia.Patient accepted by [facility] and has precert good through 02/07. Continue PT and OT while here. 4. Takotsubo cardiomyopathy Found during recent heart cath at [facility]. DVT prophylaxiis with Lovenox. Code status: DNRCCA [...] by KUMAR JAMES on 02/03/2024 04:05 PM [facility]06-27-2024 Note. MICRO - Microbiology PROCEDURE: Blood Culture (bacterial) [*1] SOURCE: Blood BODY SITE: Arm L COLLECTED DATE/TIME: 02/01/2024 05:34 EDT RECEIVED DATE/TIME: 02/01/2024 14:42 EDT START DATE/TIME: 02/01/2024 14:42 EDT FREE TEXT SOURCE: FINAL REPORTS Final Report [] Verified Date/Time/Personnel: 02/03/2024 11:26 EDT Enterococcus faecalis Isolated from aerobe and anaerobe bottles. Refer to previous culture for susceptibility. [id number] collected 01-31-24 PRELIMINARY REPORTS Preliminary Report [] Verified Date/Time/Personnel: 02/02/2024 09:02 EDT Enterococcus faecalis Isolated from aerobe and anaerobe bottles. Refer to previous culture for susceptibility. [id number] collected 01-31-24 Final report to follow. Preliminary [...] Locations *1: This test was performed at: [facility], [address] [place] [address], [facility]- , [facility] ([place])02-03-2024 Note. MICRO - Microbiology PROCEDURE: Blood Culture (bacterial) [*1] SOURCE: Blood BODY SITE: Arm R COLLECTED DATE/TIME: 02/01/2024 05:34 EDT RECEIVED DATE/TIME: 02/01/2024 14:42 EDT START DATE/TIME: 02/01/2024 14:42 EDT FREE TEXT SOURCE: FINAL REPORTS Final Report [] Verified Date/Time/Personnel: 02/03/2024 11:25 EDT Enterococcus faecalis Isolated from aerobe and anaerobe bottles. Refer to previous culture for susceptibility. [id number] Collected 01-31-24 PRELIMINARY REPORTS Preliminary Report [] [...] Locations *1: This test was performed at: [address], [facility] , [facility] ([place])02-02-2024 Note ORIGINAL EXAMINATION: CT OF THE ABDOMEN [...] Sign Date: 02/02/2024 5:34:24 PM Ordering Provider: [facility]06-26-2024 Note Date of Service 02/02/2024 Chief Complaint [...] that wascollected was negative. Urine culture from [facility] grew actinomyces naeslundii. She was treated with [...] to inpatient due to bacteremia.Patient accepted by [facility] and has precert good through 02/07. 4. Takotsubo cardiomyopathy Found during recent heart cath at [facility]. DVT prophylaxiis with Lovenox. Code status: DNRCCA [...] by KUMAR JAMES on 02/02/2024 03:16 PM [facility]06-26-2024 Note. MICRO - Microbiology PROCEDURE: Blood Culture (bacterial) [*1] SOURCE: Blood BODY SITE: Arm R COLLECTED DATE/TIME: 01/31/2024 01:15 EDT RECEIVED DATE/TIME: 01/31/2024 15:05 EDT START DATE/TIME: 01/31/2024 15:05 EDT FREE TEXT SOURCE: FINAL REPORTS Final Report [] Verified Date/Time/Personnel: 02/02/2024 07:29 EDT Enterococcus faecalis Isolated from aerobe and anaerobe bottles. Refer to previous culture for susceptibility. [id number] PRELIMINARY REPORTS Preliminary Report [] Verified Date/Time/Personnel: [...] Locations *1: This test was performed at: [address], [facility] , [facility] ([place])02-02-2024 Note. MICRO - Microbiology PROCEDURE: Blood Culture [...] Locations *1: This test was performed at: [facility], [address] [place] [address], [id number] , [facility])02-01-2024 Hospital Discharge instructions Follow Up Care 02/01/2024 12:18:47 With:BROOKS OSUNA Address: [address] [address]- When:01/10/2024 09:30:00 Comments:This is your post-hospital cardiology appointment. [facility] 06-25-2024 Note Date of Service 02/01/2024 Chief Complaint Bacteremia History of Present Illness 83-year-old female with past medical history significant for HTN, HLD, hypothyroidism, GERD, PE, NSTEMI, Takotsubo cardiomyopathy (01/2024), aortic stenosis. Patient was originally seen at [facility] on 01/20/2024 where she was diagnosed withan NSTEMI. Patient had cardiac catheterization done with no blockages but was notable for Takotsubocardiomyopathy. Echo showed normal LVEF and moderate aortic stenosis. She was treated for a UTI with cefdinir. She was admitted to [facility] TCU. Her progress has been labile. She [...] subsequently discharged from TCU and admitted to [facility] inpatient. On exam today, pt denies any [...] was collected was negative. Urine culture from [facility] grew actinomyces naeslundii. She was treated with [...] STEFANO GRAHAM APRN-KACI on 02/01/2024 02:01 PM [address]25-2024 Note* Exam Date Time Procedure Performing Provider Status 02/01/24 2:01 PM Echocardiogram, Adult - CV Auth (Verified) [facility] 06-25-2024 Evaluation + Plan noteExtracted from: Title:History and Physical Author:STEFANO GRAHAM SENIOR ORACLE APPLICATIONS DEVELOPER-ASSISTANT ENGINEER Date:02/01/24 1. Bacteremia 2. Hypertension 3. Weakness Bacteremia unclear source of infection. Blood cultures grew Enterococcus faecalis. Start ampicillin 2 g every 4 hours x 7 days. Stop date 02/08/2024. Urinalysis that was collected was negative. Urine culture from [facility] grew actinomyces naeslundii. She was treated with [...] Scheduled Provider: Location:[facility] Appointment Type:CV OV [facility] 06-24-2024 Note Date of Service 01/31/2024 Chief Complaint Asthenia Subjective 83-year-old female with past medical history significant for HTN, HLD, hypothyroidism, GERD, PE, NSTEMI, Takotsubo cardiomyopathy (01/2024), aortic stenosis. Patient was originally seen at [facility] on 01/20/2024 for increasing weakness. Shewas having [...] for SNF. She was subsequently admitted to [facility] TCU. Initially patient was struggling with progressing [...] may include grammatical and/or spelling errors. CPT: 80087 Anticipated Date of Discharge Within 5 days Time Spent 20 minutes Digitally Signed by STEFANO GRAHAM on 01/31/2024 03:23 PM [facility]06-24-2024 Nurse Progress note pt refusing 2 am labs at this time. lead mechanic aware and will attempt to collect later in am. Digitally Signed by MICH Squires on 01/31/2024 03:19 AM [facility]06-24-2024 Note ORIGINAL EXAMINATION: TWO XRAY VIEWS [...] 12:50:22 AM Ordering Provider: MALGORZATA [facility]06-22-2024 Nurse Progress note Pt has not voided since beginning of shift and has attempt to go on bedpan twice. Bladder scan doneshowing 593mL. Pt straight cathed per standing order and 400mL emptied from bladder. Urine clear and yellow. REBECCA Olivas notified. Pt denies discomfort other than usual arthritis. PRN tylenol administered. Digitally Signed by Allison Angela RN on 01/29/2024 02:54 PM [facility]06-22-2024 Nurse Progress note Therapy reported pt [...] Allison Angela RN on 01/29/2024 01:40 PM [facility]06-21-2024 Note Date of Service 01/28/2024 Chief Complaint Asthenia Subjective 83-year-old female with past medical history significant for HTN, HLD, hypothyroidism, GERD, PE, NSTEMI, Takotsubo cardiomyopathy (01/2024), aortic stenosis. Patient was originally seen at [facility] on 01/20/2024 for increasing weakness. Shewas having [...] for SNF. She was subsequently admitted to [facility] TCU. Initially patient was struggling with progressing [...] may include grammatical and/or spelling errors. CPT: 28042 Anticipated Date of Discharge 02/03 Time Spent 20 minutes Digitally Signed by STEFANO GRAHAM on 01/28/2024 12:03 PM [facility]06-16-2024 Evaluation + Plan noteExtracted from: Title:History and Physical Author:KUMAR JAMES Date:01/23/24 1. Asthenia Consult placed to PT and OT to evaluate and treat - following. director of services following for discharge planning needs. 2. Takotsubo [...] collaborating with physician, and documenting in chart. CPT#80125 Future Appointments Appointment Date:08/21/2024 11:00:00 AM Scheduled Provider: Location:[facility] Appointment Type:Echo - Echocardiogram Adult Appointment Date:09/21/2024 01:15:00 PM Scheduled Provider: Location:[facility] Appointment Type:CV OV [facility] 06-16-2024 Note Date of Service 01/23/2024 Chief Complaint weakness History of Present Illness Patient is an 83-year-old female, who follows with Ester SÁNCHEZ with a past medical history significant for hypertension, hypothyroidism, hiatal hernia and GERD, presents to [facility] transitional care program for rehab before returning home. Patient was admitted to [facility] on 01/19 due to increased weakness at home. Patient was just in the TCU here at [facility] from 11/26-12/10 for rehab following a hospitalization at [facility]. She stated on admission that she had [...] ST changes. Patient was taken to the clinical laboratory medical director from ED. The cardiac catheterization demonstrated no [...] OT to evaluate and treat - following. director of services following for discharge planning needs. 2. Takotsubo [...] collaborating with physician, and documenting in chart. CPT#00888 Problem List/Past Medical History Ongoing Acquired hypothyroidism [...] Constant Order Digitally Signed by KUMAR JAMES APRN-ASSISTANT ENGINEER on 01/23/2024 02:32 PM Digitally Signed by KUMAR JAMES APRN-ASSISTANT ENGINEER on 01/23/2024 02:37 PM [facility]06-15-2024 Hospital Discharge instructions Follow Up Care 01/22/2024 13:08:57 With:BROOKS OSUNA Address: [address] [address]- When:02/09/2024 09:30:00 Comments:This is your cardiology post-hospital appointment. It is with Dr. Anderson's physician instructional support assistant. The office is inside [facility]. With:ESTER BEJARANO MSN, TELEGRAPH OPERATOR Address: [address] [address]- When: Unknown [facility] 06-15-2024 [facility] Medical Records Department [address] [place] [address] Discharge Summary 01/22/24 1353 MR#: [id number] Acct: [id number] Name: STEFANO WASHINGTON Rep #: [id number] : 1940 83 From: Marilee Avitia MD PCP: Dr. Carl Encarnacion MD Status:ADM IN Location: [place] [address] Providers Date of Admission: 01/20/24 Date of Discharge: 01/22/24 Primary Care Physician: Dr. Carl Encarnacion MD Consultations 01/20/24 14:39 Consult: Cardiology Routine Consulting Provider: Hector Anderson Reason for Consult: Chest Pain EMERGENT Consult: No MD Notified: Yes Date Notified: 01/20/24 Time Notified: 14:39 Method of Notification: ED Physician Initiated Reason For Visit: WEAKNESS Diagnosis Discharge Diagnosis (1) Non-ST elevation WI (NSTEMI): Status: Acute Code(s): I21.4 - Non-ST elevation (NSTEMI) myocardial infarction Plan #Nonstemi * admitted with a complaint of increased weakness and lethargy * on admission, initial troponin was 3264. Troponin trended down to 2756. * She was taken to the clinical laboratory medical director which showed nonobstructive coronary arteries and evidence [...] in the ED were BP of 103/53, MO of 95, RR of 18 and oxygen sats of 94% on room air. CBC showed hemoglobin of 9.5 with WBC of 7.6 and platelets of 257. Chemistry showed sodium of 135, potassium of 3.8 and Cr of 0.66. Initial troponin was 3264. EKG showed no acute ST changes. She is being admitted to be managed for nonstemi. She was taken to the clinical laboratory medical director from the ED. Cardiac cath showed evidence of Takotsubo cardiomyopathy and showed nonobstructive coronaries. Nifedipine was discontinued and patient was placed on carvedilol. Her hospital course was uncomplicated. Patient was however too weak to go home and did not do very well with therapy. She was therefore amenable to placement. Pre-CERT was obtained and patient was discharged to group home facility on 01/22/2024. She is follow-up with [...] distress General Appearance: c (more content not included)...[facility]20[facility] History of Present illness Narrative* Nicky Paz LPN - 01/20/2024 6:31 PM EDT Scan on 01/20/2024 4:13 PM by Lizandro Robertson PA-C Scan on 01/20/2024 3:44 PM by Lizandro Robertson PA-C: Consultation - Emergency Medicine Scan on 01/20/2024 2:21 PM by Lizandro Robertson PA-C: Miscellaneous Cardiac documented in this encounterMer[facility] Telephone encounter Note * Telephone Encounter - Carl Encarnacion MD - 01/11/2024 4:46 PM EDT Noted. [facility]06-04-2024 Miscellaneous Notes* Telephone Encounter - Carl Encarnacion MD - 01/11/2024 4:46 PM EDT Noted. * Telephone Encounter - Ana Parish LPN - 01/11/2024 4:05 PM EDT Jontahan with [facility] calls to report pt was discharged from PT today. Jonathan reports pt has made good progress and pt said she is done with PT. Ana Parish LPN documented in this encounterMer[facility]06-[facility]-2024 Telephone encounter Note * Telephone Encounter - Ana Parish LPN - 01/11/2024 4:05 PM EDT Jonathan with [facility] calls to report pt was discharged from PT today. Jonathan reports pt has made good progress and pt said she is done with PT. Ana Parish LPN [facility]05-31-2024 Telephone encounter Note* Telephone Encounter - Yancy Wetzel RN - 01/07/2024 4:38 PM EDT Call placed to daughter and notified of below message. Stefano verbalizes understanding. Yancy Wetzel RN [facility]05-31-2024 Miscellaneous Notes* Telephone Encounter - Yancy Wetzel RN - 01/07/2024 4:38 PM EDT Call placed to daughter and notified of below message. Stefano verbalizes understanding. Yancy Wetzel RN * Telephone Encounter - Ester Bejarano APRN.TELEGRAPH OPERATOR - 01/07/2024 4:28 PM EDT Very possible. [...] previous ATB was. Requesting prescription go to [facility]. Please review and advise, Yancy Wetzel RN documented in this encounterMercy Health St. [facility]05-31-2024 Telephone encounter Note * Telephone Encounter - [...] Bactrim with a full glass of water. [facility]05-31-2024 Telephone encounter Note* Telephone Encounter - Yancy [...] previous ATB was. Requesting prescription go to [facility]. Please review and advise, Yancy Wetzel RN [facility]05-30-2024 Telephone encounter Note* Telephone Encounter - Carl Encarnacion MD - 01/06/2024 6:15 PM EDT Info noted. Patient has been on the tramadol for several years and the last script for compazine was back in 05/[address] oncology[address] [facility]05-30-2024 Miscellaneous Notes* Telephone Encounter - Carl Encarnacion MD - 01/06/2024 6:15 PM EDT Info noted. Patient has been on the tramadol for several years and the last script for compazine was back in 05/2023 per oncology. * Telephone Encounter - Angeline Robbins RN - 01/06/2024 3:36 PM EDT Zabrina from [facility] calls and reports that patient is being discharged from OT services due to patient meeting goals. Zabrina also notes that patient's prn prochlorperazine does have an interaction with Tramadol. Patientreports that she does not take prochlorperazine often. Angeline Robbins RN documented in this encounterMer[facility] Health [facility]. [facility]05-30-2024 Telephone encounter Note * Telephone Encounter - Angeline Robbins RN - 01/06/2024 3:36 PM EDT Zabrina from [facility] calls and reports that patient is being discharged from OT services due to patient meeting goals. Zabrina also notes that patient's prn prochlorperazine does have an interaction with Tramadol. Patientreports that she does not take prochlorperazine often. Angeline Robbins RN [facility]05-30-2024 Telephone encounter Note* Telephone Encounter - Kumar Cooley MA - 01/06/2024 10:12 AM EDT Patient was made aware of the results. Patient verbalizes understanding. Kumar Cooley Ma [facility]05-30-2024 Miscellaneous Notes* Telephone Encounter - Kumar Cooley MA - 01/06/2024 10:12 AM EDT Patient was made aware of the results. Patient verbalizes understanding. Kumar Cooley Ma * Telephone Encounter - Ester Bejarano APRN.CNS - 01/06/2024 9:43 AM EDT Please let patient know that she does have a E. coli infection in her urine. I am calling in [employer] twice daily for 7 days. Repeat urinalysis once antibiotic is completed. * Telephone Encounter - Izzy Duarte LPN - 01/06/2024 9:19 AM EDT Daughter calling for results of pt's UA. Please advise, Pharmacy updated. Izzy Duarte LPN documented in this encounterMer[facility]05-30-2024 Telephone encounter Note * Telephone Encounter - Ester Bejarano APRN.CNS - 01/06/2024 9:43 AM EDT Please let patient know that she does have a E. coli infection in her urine. I am calling in [employer] twice daily for 7 days. Repeat urinalysis once antibiotic is completed. [facility]05-30-2024 Telephone encounter Note* Telephone Encounter - Izzy Duarte LPN - 01/06/2024 9:19 AM EDT Daughter calling for results of pt's UA. Please advise, Pharmacy updated. Izzy Duarte LPN [facility]05-28-2024 Telephone encounter Note* Telephone Encounter - Aan Parish LPN - 01/04/2024 8:30 AM EDT [...] Please advise. Thank you. Ana Parish LPN. [facility]05-28-2024 Miscellaneous Notes* Telephone Encounter - Ana Parish [...] you. Ana Parish LPN. documented in this encounterMercy Health St. [facility]05-18-2024 [facility]05-18-2024 History of Present illness Narrative* Carl Encarnacion MD - 12/25/2023 11:20 AM EDT Patient's home health 485 form / care plan for certification period 12/14/2023 to 02/11/2024 reviewed and signed. Relevant medical records were reviewed. No changes were indicated documented in this encounterMercy Health St. [facility]05-14-2024 NoteHNO ID: [id number] Author: ZABRINA CHAVEZ LPN Service: ? Author Type: LICENSED NURSE Type: Progress Notes Filed: 12/21/2023 14:07 Note Text: Scan on 12/21/2023 10:35 AM by Lizandro Robertson PA-C: Discharge Summary [facility] History of Present illness Narrative* Zabrina Chavez LPN - 12/21/2023 2:07 PM EDT Scan on 12/21/2023 10:35 AM by Provider, External, SHANELLE: Discharge Summary Zabrina Chavez LPN documented in this encounterMer[facility] Health St. [facility]05-09-2024 Telephone encounter Note * Telephone Encounter - Dannielle Tam MA - 12/16/2023 3:43 PM EDT Patient informed and verbalized understanding. Dannielle Tam MA [facility]05-09-2024 Miscellaneous Notes* Telephone Encounter - Dannielle Tam [...] she finishes her antibiotic. documented in this encounterMercy Health St. [facility]05-09-2024 Telephone encounter Note * Telephone Encounter - [...] recheck urinalysis when she finishes her antibiotic. [facility]05-08-2024 Telephone encounter Note* Telephone Encounter - Keily Rico MA - 12/15/2023 4:27 PM EDT Left detailed message. Keily Rico MA [facility]05-08-2024 Miscellaneous Notes* Telephone Encounter - Keily Rico MA - 12/15/2023 4:27 PM EDT Left detailed message. Keily Rico MA * Telephone Encounter - Carl Encarnacion MD - 12/15/2023 4:24 PM EDT Yes I'm ok with the additional 3 visits. * Telephone Encounter - Gina Curiel LPN - 12/15/2023 12:27 PM EDT Kelsie from [facility] calling verbal ok for 3 additional visits for OT. They plan to see patient 1 time a week for 3 weeks. Please advise. documented in this encounterMercy Health St. [facility]05-08-2024 Telephone encounter Note * Telephone Encounter - Carl Encarnacion MD - 12/15/2023 4:24 PM EDT Yes I'm ok with the additional [address] [facility]05-08-2024 Telephone encounter Note* Telephone Encounter - Gina Curiel LPN - 12/15/2023 12:27 PM EDT Kelsie from [facility] calling verbal ok for 3 additional visits for OT. They plan to see patient 1 time a week for 3 weeks. Please advise. [facility]05-07-2024 Telephone encounter Note* Telephone Encounter - Carl Encarnacion MD - 12/14/2023 3:30 PM EDT Noted. Med list updated. [facility]05-07-2024 Miscellaneous Notes* Telephone Encounter - Carl Encarnacion MD - 12/14/2023 3:30 PM EDT Noted. Med list updated. * Telephone Encounter - Mary Krueger RN - 12/14/2023 2:22 PM EDT Jonathan- PT- [facility]- reports he saw patient today for start of care, and will continue to see patient for 7 more visits. Reports patient was in [facility], then transferred to [facility], then discharged to home on 12-11-23. Jonathan [...] relief (mucinex) medication prn. documented in this encounterMercy Health St. [facility]05-07-2024 Telephone encounter Note * Telephone Encounter - Mary Krueger, RN - 12/14/2023 2:22 PM EDT Jonathan- PT- [facility]- reports he saw patient today for start of care, and will continue to see patient for 7 more visits. Reports patient was in [facility], then transferred to [facility], then discharged to home on 12-11-23. Jonathan [...] takes a mucous relief (mucinex) medication prn. [facility]05-06-2024 Note* Addendum Note - Ester Bejarano APRN.CNS - 12/13/2023 1:45 PM EDTAddended by: ESTER BEJARANO on: 12/13/2023 01:45 PM Modules accepted: Orders [facility]05-06-2024 Miscellaneous Notes* Addendum Note - Ester Bejarano APRN.CNS - 12/13/2023 1:45 PM EDTAddended by: ESTER BEJARANO on: 12/13/2023 01:45 PM Modules accepted: Orders documented in this encounterMercy Health St. [facility]05-06-2024 Instructions* Patient Instructions* Ester Bejarano APRN.CNS - 12/13/2023 1:15 PM EDT 1) Get urine culture 2) Handicapped placard for 5 years 3) Keep appointment February 16 as scheduled documented in this encounterMercy Health St. 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 Ester Bejarano APRN.TELEGRAPH OPERATOR documented in this encounterMercy Health St. [facility]05-06-2024 NoteMer[facility]05-06-2024 Telephone encounter Note* Telephone Encounter - Sruthi Pisano MA - 12/13/2023 11:49 AM EDT Yuri was notified Sruthi Pisano MA [facility]05-06-2024 Miscellaneous Notes* Telephone Encounter - Sruthi Pisano MA - 12/13/2023 11:49 AM EDT Yuri was notified Sruthi Pisano MA * Telephone Encounter - Carl Encarnacion MD - 12/13/2023 10:53 AM EDT I will follow for [facility] orders. The F2f report needs signed by the provider who placed the order to consult [facility] for PHYSICAL THERAPY and OT at [facility]. * Telephone Encounter - Izzy Duarte LPN - 12/13/2023 9:10 AM EDT Yuri with [facility] calling to let you know pt is went home from [facility] over the weekend and pt has been referred to [facility] for PT and OT. DX: had a fall and was admitted for rhabdomyolysis. Please call with verbal orders that you will follow and sign for Home Care. Izzy Duarte LPN documented in this encounterMercy Health St. [facility]05-06-2024 Telephone encounter Note * Telephone Encounter - Carl Encarnacion MD - 12/13/2023 10:53 AM EDT I will follow for [facility] orders. The F2f report needs signed by the provider who placed the order to consult [facility] for PHYSICAL THERAPY and OT at [facility]. [facility]05-06-2024 Telephone encounter Note* Telephone Encounter - Izzy Duarte LPN - 12/13/2023 9:10 AM EDT Yuri with [facility] calling to let you know pt is went home from [facility] over the weekend and pt has been referred to [facility] for PT and OT. DX: had a fall and was admitted for rhabdomyolysis. Please call with verbal orders that you will follow and sign for Home Care. Izzy Duarte LPN [facility]05-04-2024 Nurse Discharge summary discharge instructions reviewed with daughter and pt, verbalized understanding, no questions at this time pt escorted out to private vehicle via [facility]05-04-2024 Note Discharge Instructions Thank you for allowing [facility] to assist you with your healthcare needs. The following is importantdischarge information regarding your hospital visit. Your Care Team ESTER BEJARANO, TELEGRAPH OPERATOR Your Diagnosis Acquired hypothyroidism Asthenia Benign hypertension Fever Gastro-esophageal reflux Rash What to do next Instructions From Your Doctor You were admitted to [facility] transitional care program for rehab after a hospital stay at [facility]. You have progressed well with therapy and they feel that you are ready to transition back home. Our psychologist social has arranged for home health PT and OT to take over and see you in your home. We made no changes to your medications and you stated that you did not need any refills. Our psychologist social set-up an appointment with your PCP for next week. The date and time are on your discharge instructions. If you have any new or worsening problems, please contact your PCP or return to the ED. We wish you the best as you discharge home today. Thank you for using [facility] transitional care program for your rehab needs! Scheduled Follow-Up Appointments Appointment Type When Where Contact InformationEcho - Echocardiogram Adult 08/21/2024 11:00 AM [facility] [phone] CV OV 09/21/2024 01:15 PM [facility] [place] Follow Up Appointments Follow Up with [facility] When 12/13/2023 11:00 AM EDT Why: This is your PCP appointment. It will be with the nurse practitioner, Ester Bejarano. Follow-up as scheduled. Where: [address] [place] [address]- [phone] The Following Activity and Diet Have Been [...] Consider working with a physical therapist or warehouse trainer who can develop an exercise plan to help you gain muscle strength. General instructions Take xanr-qzn-htmgxzr and prescription medicines only as told by [...] 07/26/2006 Document Revised: 03/01/2019 Document Reviewed: 03/01/2019 [employer] Patient Education 2020 [employer]. Additional Information VACCINATE! IT SAVES LIVES! Members of the community who have not yet received the COVID-19 vaccine and would like to receive it can visit one of [facility] vaccine clinics. There are many vaccine clinic locations within the [facility]. For locations and available times, please visit [email or web address]/. It is important to note that some COVID mobile vaccine clinics are held outdoors and may be canceled in rainy or stormy conditions. To learn more about pediatric vaccinations (ages 5-11), we invite you to visit the [facility] webpage. [email or web address]/[email or web address]-Hbrqyhhkdgy-Lyhmafsrnj-[email or web address] stions.htmlTo learn more about the COVID-19 vaccine, we invite you to visit the CDC website for a list of frequently asked questions.https://www.cdc.gov/coronavirus/2019-ncov/vaccines/faq.html [facility] Patient Portal Access Instructions: Stay connected with your healthcare team and access your personal medical information anytime with the [facility] Patient Portal. Please follow the directions below to create your [facility] account: 1.Access the email account you provided upon registration to the hospital/physician office.2.Look for an invitation email from [facility].3.Open the email and access the invitation link: AcceptInvitation to [facility].4.Fill in the required martinez to create your account. To access your account, visit [email or web address]. Click the blue button labeled Access Patient Portal and then log in with the username and password that you created in the steps above. You will be able to view your test results, lab results, a summary of your visits, upcoming appointments and more. There is also a convenient messaging option where you can send secure messages to your p Swipe Telecomvider. In addition, you will have the ability to download any documents or summaries to your computer and/or send the information securely to a physician. Remember that your healthcare information is confidential, so carefully consider who you will allowto register on the [facility] Patient Portal for access to your information. You can also access the [facility] Patient Portal on the [facility] trueAnthemwhere guille. Simply click on Patient Portal and then log into your account. If you would like to receive a full copy of your medical records, please contact the [facility] Medical Records Department by calling [phone], Wednesday through Wednesday between 8 a.m. and [...] Call your local pharmacy or go to [email or web address] to find one close to you.3.Make use of household items: Use cat litter or old coffee grounds to dispose medications if other options arenot available. Mix your drugs with these household products, seal them in an airtight container andthrow it into the garbage. Call [facility]: [phone] to be sure your drugs can be [...] aware that I should contact my doctor. Patient/Dockworker Signature: Date/Time: Relationship to Patient: Witness Name/Signature: Date/Time: [facility] Rosa Mariajesus [id number] Hospital Discharge instructions Patient Education 12/11/2023 08:02:58 [...] Consider working with a physical therapist or warehouse trainer who can develop an exercise plan to help you gain muscle strength. General instructions Take oxrn-mya-imheqsm and prescription medicines only as told by [...] 07/26/2006 Document Revised: 03/01/2019 Document Reviewed: 03/01/2019 [employer] Patient Education 2020 [employer] Follow Up Care 11/26/2023 15:27:14 With:[facility] Address: [address] [place] [phone] When:12/13/2023 11:00:00 Comments:This is your PCP appointment. It will be with the nurse practitioner, Ester Bejarano. Follow-up as scheduled. [facility] 04-29-2024 Note Date of Service 12/06/2023 Chief Complaint Asthenia Subjective 83-year-old female with past medical history significant for HTN, HLD, hypothyroidism, GERD, PE. Patient presented to [facility] on 11/23/2023 after sustaining a fall at home. She was treated for rhabdomyolysis and UTI. She was initially treated with ceftriaxone and then transition to Keflex. She was evaluated by therapy services with recommendation for SNF. She was subsequently admitted to [facility] TCU. 12/01 therapy reported that patient has [...] may include grammatical and/or spelling errors. CPT: 03418 Anticipated Date of Discharge 12/09 Time Spent 22 minutes Digitally Signed by STEFANO GRAHAM on 12/06/2023 11:26 AM [facility]04-29-2024 Telephone encounter Note* Telephone Encounter - Kristen Eugene PA-C - 12/06/2023 10:21 AM EDT The following approved medication requests have been transmitted electronically. Requested Prescriptions Signed Prescriptions Disp Refills traMADol (ULTRAM) 50 mg tablet 60 tablet 0 Sig: Take 1 tablet by mouth two times a day for 30 days. for arthritis pain. Authorizing Provider: KRISTEN EUGENE PA-C [facility]04-29-2024 Miscellaneous Notes* Telephone Encounter - Kristen Eugene PA-C - 12/06/2023 10:21 AM EDT The following approved medication requests have been transmitted electronically. Requested Prescriptions Signed Prescriptions Disp Refills traMADol (ULTRAM) 50 mg tablet 60 tablet 0 Sig: Take 1 tablet by mouth two times a day for 30 days. for arthritis pain. Authorizing Provider: KRISTEN EUGENE PA-C * Telephone Encounter - [facility] Trina Estrada - 12/06/2023 8:03 AM EDT [...] Thank you. Trina Estrada. documented in this encounterMer[facility] Health [facility]. [facility]04-29-2024 Telephone encounter Note * Telephone Encounter - [facility] [place] Trina Estrada - 12/06/2023 8:03 AM EDT [...] 02/17/2024 Please advise. Thank you. Trina Estrada. [facility]04-26-2024 Note Date of Service 12/03/23 Chief Complaint Asthenia Subjective 83-year-old female with past medical history significant for HTN, HLD, hypothyroidism, GERD, PE. Patient presented to [facility] on 11/23/2023 after sustaining a fall at home. She was treated for rhabdomyolysis and UTI. She was initially treated with ceftriaxone and then transition to Keflex. She was evaluated by therapy services with recommendation for SNF. She was subsequently admitted to [facility] TCU. 12/01 therapy reported that patient has [...] and may include grammatical and/or spelling errors. 423[address] Anticipated Date of Discharge 12/16 Time Spent 30 minutes Digitally Signed by STEFANO GRAHAM on 12/03/2023 11:27 AM [facility]04-26-2024 HCoV 229E RNA FAUSTO+non-probe Ql (Nph) Not Detected *NA* (12/03/23 8:03 AM) Auto Viro/Sero [id number] Note Date of Service 12/01/2023 Chief Complaint [...] OT to evaluate and treat - following. director of services following for discharge planning. 2. Benign hypertension [...] patient, discussed plan of care with nursing, group social worker and therapy, collaborating with physician, and documenting in chart. CPT#37607 Digitally Signed by KUMAR JAMES on 12/01/2023 07:37 PM [facility]04-20-2024 Note Date of Service 11/27/2023 Chief Complaint weakness History of Present Illness Patient is an 83-year-old female, who follows with Dr. Ministerio Crabtree with a past medical history significant for hypertension, hyperlipidemia, hypothyroidism, GERD and PE, presented to [facility] on 11/23/2023 after sustaining a fall at [...] by insurance and arrived last evening for [facility] transitional care program. Patient was seen this morning while resting in her chair. She states that she is doing well and denies any new complaints. She continues to have pain in her left lower extremity when she bears weight. She states that her leg was imaged at [facility] and was negative for an acute fracture. Introduced self and role of hospitalist PLASTICS TOOLING ENGINEER in her care while in the TCU. [...] PT and OT to evaluate and treat. director of services following for discharge planning. 2. Benign hypertension [...] patient, discussed plan of care with nursing, group social worker and therapy, collaborating with physician, and documenting in chart. CPT#90572 Problem List/Past Medical History Ongoing Acquired hypothyroidism [...] by KUMAR JAMES on 11/27/2023 02:00 PM [facility]04-20-2024 Evaluation + Plan noteExtracted from: Title:History and Physical Author:KUMAR JAMES APRN-ASSISTANT ENGINEER Date:11/27/23 1. Asthenia Acute, secondary to UTI and hospitalization. Consult placed to PT and OT to evaluate and treat. director of services following for discharge planning. 2. Benign hypertension [...] patient, discussed plan of care with nursing, group social worker and therapy, collaborating with physician, and documenting in chart. CPT#01514 Future Appointments Appointment Date:08/21/2024 11:00:00 AM Scheduled Provider: Location:[facility] Appointment Type:Echo - Echocardiogram Adult Appointment Date:09/21/2024 01:15:00 PM Scheduled Provider: Location:[facility] Appointment Type:CV OV [facility] 04-19-2024 Consult note Author Dalila Biswas [facility] November 26, 2023 2:23pm Note Date/Time November 26, 2023 2:2 3pm [facility] Medical Records Department [address] [place] [address] Counseling Note - Pharmacy 11/26/23 1422 MR#: [id number] Acct: [id number] Name: STEFANO WASHINGTON Rep #:[id number] : 1940 83 From: Dalila Biswas PCP: Dr. Carl Encarnacion MD Status:ADM IN [facility] Med Reconciliation Pharmacy Service has performed discharge [...] Signature (if applicable): Date CC: ~ Signed [facility] Work Phone: 1(141) 866-811904-19-2024 Discharge summary Author Kelby Lauren [facility] November 26, 2023 1:50pm Note Date/Time November 26, 2023 1:5 0pm [facility] Medical Records Department [address] [place] [address] Discharge Summary 11/26/23 1349 MR#: [id number] Acct: [id number] Name: STEFANO WASHINGTON Rep #:[id number] : 1940 83 From: Kelby saldaña DO PCP: Dr. Carl Encarnacion MD Status:ADM IN Location: [place] [address] Providers Date of Admission: 11/23/23 Date of [...] Patient is an 83-year-old female who presented [facility] ED on 11/23/2023 after a fall at [...] in before D/C Order can be placed): [facility] Facility Charges/Coding Visit Charges Inpatient E&M: 19872 Disch Hosp >30min 11/26/23 1350 <Electronically signed by Kelby Aguilar DO> Cosigner Signature (if applicable): CC: Dr. Kelby Aguilar DO; Dr. Carl Encarnacion MD~ Signed [facility] Work Phone: 1(439) 262-382304-19-2024 Discharge summary Author Kelby Aguilar [facility] November 26, 2023 1:49pm Note Date/Time November 26, 2023 1:4 7pm [facility] Medical Records Department [address] [place] [address] Transfer to Extended Care MR#: [id number] Acct: [id number] Name: STEFANO WASHINGTON Rep #:[id number] : 1940 83 From: Kelby saldaña DO PCP: Dr. Carl Encarnacion MD Status:ADM IN Certification of patient admission REQUIRED AT TIME OF ADMISSION. I CERTIFY THAT POST-HOSPITAL ECF SERVICES ARE REQUIRED TO BE GIVEN ON AN IN-PATIENT BASIS BECAUSE OF THE ABOVE NAMED PATIENT'S NEED FOR CORRECTION CARE ON A CONTINUING BASIS FOR THE [...] Patient is an 83-year-old female who presented [facility] ED on 11/23/2023 after a fall at [...] levothyroxine 88 mcg tablet 88 mcg [facility] Patient Comments: TAKE ONE TABLET BY MOUTH [...] in before D/C Order can be placed): [facility] Facility 11/26/23 1349 <Electronically signed by Kelby Aguilar DO> Cosigner Signature (if applicable): CC: Dr. Carl Encarnacion MD ~ [facility] Work Phone: 1(168) 737-239504-19-2024 Progress note Author [facility] November 26, 2023 11:44am Note Date/Time November 26, 2023 11: 44am [facility] Medical Records Department [address] [place] [address] Progress Note - Hospitalist 11/26/23 1141 MR#: [id number] Acct: [id number] Name: STEFANO WASHINGTON Rep #:[id number] : 1940 83 From: Kelby saldaña DO PCP: Dr. Carl Encarnacion MD Status:ADM IN Location: [place] [id number] Reason for Visit Reason for Visit: Diagnoses [...] concerns this morning. Had been told by top case assembler that [facility] rehab had accepted her and she was [...] Patient is an 83-year-old female who presented [facility] ED on 11/23/2023 after a fall at [...] following. Accepted to an hospital rehab at [facility], awaiting bed placement. Medically stable for discharge [...] 35 minutes. Charges/Coding Visit Charges Inpatient E&M: 13348 Subs Hosp L2 11/26/23 1144 <Electronically signed by Kelby Aguilar DO> Cosigner Signature (if applicable): CC: ~ Signed [facility] Work Phone: 1(683) 262-445104-18-2024 Progress note Author Kelby [facility] November 25, 2023 2:47pm Note Date/Time November 25, 2023 12: 24pm [facility] Medical Records Department [address] [place] [address] Progress Note - Hospitalist 11/25/23 1224 MR#: [id number] Acct: [id number] Name: STEFANO WASHINGTON Rep #:[id number] : 1940 83 From: Kelby saldaña DO PCP: Dr. Carl Encarnacion MD Status:ADM IN [facility] Reason for Visit Reason for Visit: Diagnoses Rhabdomyolysis (11/23/23) Urinary tract infection, site not specified (11/23/23) Weakness (11/23/23) Unspecified fall, initial encounter (11/23/23) Subjective Subjective No acute events overnight. Patient seen at bedside this morning, top case assembler also present at bedside. Patient had fairly poor therapy scores yesterday and recommendation was for SNF on discharge. Unfortunately, top case assembler told patient and family this morning that TCU was not able to accept her. Patient and family were okay with referrals being sent to [facility] in-hospital rehab facilities instead. Patient states that [...] Patient is an 83-year-old female who presented [facility] ED on 11/23/2023 after a fall at [...] patientwould be a better candidate for a group home facility on discharge as opposed to home health care. TCU not able to accept patient, referrals sent to [facility] and [facility] rehab facilities and are pending. Patient is [...] 35 minutes. Charges/Coding Visit Charges Inpatient E&M: 08938 Subs Hosp L2 11/25/23 9577 <Electronically signed by Kelby Aguilar DO> Cosigner Signature (if applicable): CC: ~ Signed [facility] Work Phone: 1(499) 426-289104-17-2024 Progress note Author Kelby [facility] November 24, 2023 3:43pm Note Date/Time November 24, 2023 10: 18am [facility] Medical Records Department [address] [place] [address] Progress Note - Hospitalist 11/24/23 1018 MR#: [id number] Acct: [id number] Name: STEFANO WASHINGTON Rep #:[id number] : 1940 83 From: Kelby saldaña DO PCP: Dr. Carl Encarnacion MD Status:ADM IN Location: [place] [address] Reason for Visit Reason for Visit: Diagnoses [...] Clear Calc 48.91, Est GFR (MDRD) Af Gdia570, Est GFR (MDRD) Non-Af 105, BUN/Creatinine Ratio [...] Patient is an 83-year-old female who presented [facility] ED on 11/23/2023 after a fall at [...] would be a better candidate for a group home facility on discharge as opposed to home [...] 35 minutes. Charges/Coding Visit Charges Inpatient E&M: 88616 Subs Hosp L2 11/24/23 1547 <Electronically signed by Kelby Aguilar DO> Cosigner Signature (if applicable): CC: ~ Signed [facility] Work Phone: 1(213) 591-455804-17-2024 [facility]04-17-[facility] History of Present illness Narrative* Keily Rico MA - 11/24/2023 3:20 PM EDT Scan on 11/23/2023 2:46 PM by ProviderLizandro PA-C: Consultation - Emergency Medicine Scan on 11/23/2023 3:47 PM by ProviderLizandro PA-C: Consultation - Emergency Medicine Patient admitted 11/23/2023 Keily Rico MA documented in this encounterMercy Health St. [facility]04-16-2024 Discharge summary Author Simth Ho [facility] November 23, 2023 3:37pm Note Date/Time November 23, 2023 8:4 2am [facility] Medical Records Department [address] [place] [address] Emergency Department Summary 11/23/23 MR#: [id number] Acct: [id number] Name: STEFANO WASHINGTON Rep #:[id number] : 1940 83 From: Smith Ho MD PCP: Dr. Carl Encarnacion MD Status:ADM IN Location: MS3 XW606-5 HPI History of Present Illness Chief Complaint: [...] No shortening or rotation. She has normal accordion repairer strength both hands. She is able to [...] 77.0 H Lymph % (Auto) 12.9 L [place] % (Auto) 9.0 Eos % (Auto) 0.1 [...] Clarity Cloudy Urine pH 6.0 Ur Specific [place] 1.010 Urine Protein 30 H Urine Glucose [...] rhythm rate 100 no acute signs of WI or ischemia. Right bundle branch block. Discharge Plan Dx/Rx/DC Orders Clinical Impression: Urinary tract infection, Generalized weakness, Rhabdomyolysis, Fall Disposition Disposition: Acute Care Hospital [facility] What to do if you have Problems For any increased pain, shortness of breath, bleeding, nausea or vomiting, chestpain, or any unexpected problems, contact your Primary Care Provider. Call [facility] ([phone]) or report to the closest Emergency Room. Call 911 if necessary. 11/23/23 1537 <Electronically signed by Smiht Ho MD> Cosigner Signature (if applicable): CC: Dr. Carl Encarnacion MD ~ Signed [facility] Work Phone: 1(320) 859-409104-16-2024 History and physical note Author [facility]by [facility] November 23, 2023 2:36pm Note Date/Time November 23, 2023 11: 38am [facility] Medical Records Department [address] [place] [address] H&P Exam - Hospitalist 11/23/23 1137 MR#: [id number] Acct: [id number] Name: STEFANO WASHINGTON Rep #:[id number] : 1940 83 From: Kelby saldaña DO PCP: Dr. Carl Encarnacion MD Status:ADM IN Location: [facility] UL018-2 HPI - General General Date of Admission: 11/23/23 Date of Service: 11/23/23 Chief Complaint: Fall with weakness HPI Narrative STEFANO WASHINGTON, is a 83 F who presented to [facility] ED on 11/23/2023 after a fall at [...] previously had a bad experience at another [facility] and significantly prefers to go to the TCU on discharge if needed. In the ED, patient was found to have a creatinine kinase level of 2446. Kidney function was at baseline. CBC and BMP were otherwise benign. Chest x-ray was nonacute. UA was infectious appearing. Given her acute debility, rhabdomyolysis and concern for UTI, patient was admitted for further management. [facility] Medical History (Updated 11/23/23 @ [...] 77.0 H, Lymph % (Auto) 12.9 L, [place] % (Auto) 9.0, Eos % (Auto) 0.1, [...] Clarity Cloudy, Urine pH 6.0, Ur Specific [place] 1.010, Urine Protein 30 H, Urine Glucose [...] Patient is an 83-year-old female who presented [facility] ED on 11/23/2023 after a fall at home and being down for several hours after that due to weakness. 1. Mechanical fall, acute on chronic debility ? Admit under inpatient status to [facility]. PT/OT/case management consulted. Lives at home alone, [...] 35 minutes. Charges/Coding Visit Charges Inpatient E&M: 30053 Init Hosp L2 11/23/23 1436 <Electronically signed by Kelby Aguilar DO> Cosigner Signature (if applicable): CC: Dr. Kelby Aguilar DO; Dr. Carl Encarnacion MD~ Signed [facility] Work Phone: 1(816) 897-249102-29-2024 Miscellaneous Notes* Telephone Encounter - Kristen Eugene [...] Thank you. Linn Estrada. documented in this encounterMer[facility] Health St[facility]02-01-2024 Note* Exam Date Time Procedure Performing Provider Status 09/09/23 12:44 PM Echocardiogram, Adult ([facility]OH) Auth (Verified) [facility] 01-10-2024 [facility]Mer[facility]12-18-2023 History of Present illness Narrative* Prosper Amador [...] Castillo. Does not want to return to [place]. Does not want to take anything that may impact her blood counts. Not interested in PARP inhibitor. Declines labs and scans. Will continue to follow with Dr. Encarnacion, next appt scheduled 08/18/2023. Following with cardiology at [facility]. She reports that she is feeling well. [...] - follow up as needed. Prosper Amador, REBECCA.ASSISTANT ENGINEER Portions of this note including HPI, ROS, impression/plan may have been copied forward as to provide important historical information essential in contributing to medical decision making. Documentation has been reviewed and edited as necessary to support clinical decision making for today's visit and to reflect my own independent evaluation of this patient. documented in this encounterMercy Health St. [facility]12-18-2023 NoteMer[facility]12-08-2023 Miscellaneous Notes* Telephone Encounter - Amanda Coles [...] appointments canceled as requested documented in this encounterMercy Health St. [facility]12-04-2023 Miscellaneous Notes* Telephone Encounter - Izzy Duarte LPN - 07/12/2023 2:11 PM EST Daughter notified and wants to make sure she does not have any problems with the next prescription. Called the [facility] and spoke with the pharmacist. I [...] review. Izzy Duarte LPN documented in this encounterMercy Health St. [facility]11-29-2023 NoteMer[facility]11-29-2023 History of Present illness Narrative* Wilmar Forbes [...] Abs Lymph 1.00 - 4.00 k/uL 1.82 [place]% % 6.8 Abs [place] <0.87 k/uL 0.21 Eosin% % 1.6 Abs [...] is frail and would unlikely have tolerated paskenta doublet. -Symptomatically tolerating carboplatin very well. -Reviewed [...] which included preparing to see the patient, hmjx-th-fjxa patient care, completing clinical documentation, obtaining and/or reviewing separately obtained history, performing a medically appropriate examination, counseling and educating the pat ient/family/caregiver, ordering medications, tests, or procedures, communicating with other HCPs (not separately reported), and communicating results to the patient/family/caregiver. Wilmar Forbes DO documented in this encounterMercy Health St. [facility]11-09-2023 Miscellaneous Notes* Telephone Encounter - Korin Mantilla [...] protocol. Korin Mantilla RN documented in this encounterMercy Health St. [facility] Center11-03-2023 Miscellaneous Notes* Telephone Encounter - Carl Encarnacion [...] notify patient. Stephanie Estrada documented in this encounterMercy Health St. Rita'[facility] Center11-03-2023 Miscellaneous Notes* Telephone Encounter - Korin Mantilla [...] protocol. Korin Mantilla RN documented in this encounterMercy Health St. Rita'S [facility] Center10-30-2023 Miscellaneous Notes* Telephone Encounter - Carl Encarnacion [...] call in. Stefano Estrada documented in this encounterMercy Health St. Rita'S [facility] Center10-30-2023 Miscellaneous Notes* Telephone Encounter - Angeline Shaikh [...] authorization purposes. Angeline Shaikh documented in this encounterMercy Health St. Rita'S [facility]10-30-2023 Miscellaneous Notes* Telephone Encounter - Susan Quick [...] you. Korin Mantilla RN documented in this encounterMercy Health St. Rita'S [facility]10-27-2023 NoteHNO ID: [id number] Author: Korin Mantilla RN Service: ? Author Type: Registered Nurse Type: Progress Notes Filed: 06/04/2023 1:18 PM Note Text: This visit was completed via telephone. Korin Mantilla RNMercy Health [facility]iff[facility]10-27-2023 History of Present illness Narrative* Korin Mantilla [...] Mantilla RN - 06/04/2023 1:14 PM EDT Fiber Optic Technician Pre Chemo Patient identified by name and date of . YES Confirmed date and time for chemotherapy ? YES Other appointments (labs, imaging) discussed? YES Discussed where to park (bag liner), charge for parking YES Discussed where to [...] needed: Korin Mantilla RN documented in this encounterMercy Health St. Rita'[facility]10-27-2023 [facility]10-27-2023 NoteMer[facility]10-25-2023 Miscellaneous Notes * Telephone Encounter - Korin Mantilla RN - 06/02/2023 3:16 PM EDT Met with patient and introduced myself. Patient was given a My Journey binder with chemocare information, office contact information, thermometer, and additional chemotherapy resource booklets. Patient aware this nurse will review on scheduled appointment date. Korin Mantilla RN documented in this encounterMercy Health St. Rita'[facility]10-25-2023 History of Present illness Narrative* Wilmar Forbes [...] (97.9 F), weight 73.5 kg (162 lb), [id number] %. Somewhat frail-appearing and in no acute [...] she would be able to tolerate a paskenta doublet. -I discussed the logistics, potential risks [...] which included preparing to see the patient, fqha-[id number] patient care, completing clinical documentation, obtaining and/or reviewing separately obtained history, performing a medically appropriate examination, counseling and educating the pat ient/family/caregiver, ordering medications, tests, or procedures, and communicating results to thepatient/family/caregiver. Wilmar Forbes DO documented in this encounterMercy Health St. Rita[facility]10-25-2023 NoteMer[facility]10-23-2023 NoteMer[facility]10-23-2023 History of Present illness Narrative* Carl Encarnacion MD - 05/31/2023 8:50 AM EDT Patient's home health 485 form / care plan for certification period 05/12/2023 to 07/10/2023 reviewedand signed. Relevant medical records were reviewed. Changes were communicated to home health agency documented in this encounterMercy Health St. Rita[facility]10-09-2023 NoteMer[facility]10-05-2023 Miscellaneous Notes* Telephone Encounter - Carl Encarnacion MD - 05/13/2023 4:57 PM EDT Noted. * Telephone Encounter - Angeline Robbins RN - 05/13/2023 11:34 AM EDT Kumar calling from [facility] to report plan of care for patient and group home willvisit patient 1 time a week for 2 weeks, 2 times a week for 2 weeks and 1 time a week for 3 weeks. longterm will work with patient on teaching about chemotherapy and medication safety. Kumar also notes that patient has an order for Tramadol 50 mg twice a day. Patient was taking 100 mgonce a day. Kumar had explained to patient the importance of taking medication as prescribed. Angeline Robbins RN documented in this encounterMercy Health St. Rita'S [facility] Center09-25-2023 History of Present illness Narrative* Eliot Castillo MD - 05/03/2023 4:45 PM EDT Gynecologic Oncology [facility] Postop Re: Stefano Washington [facility]#: [id number] Date of Service: 05/03/2023 Dr. Jacky Graves [...] vaginal cuff. Bimanual exam reveals no tenderness. Environmental Protection Specialist offered: Patient accepts, visit chaperoned by Tuyet [...] can receive treatment with Dr Forbes in [place] and return here after completion of chemotherapy. Her preop CA125 was elevated to 11 1 so she can follow this to monitor her response. Patient expressed understanding and agreement with the plan. Consult placed to Hem/Onc. ATTESTATION: By signing my name below, Crista Babcock, attest that this documentation has been [...] necessary changes were made. documented in this encounterMercy Health St. Rita'S [facility] Center09-25-2023 NoteHNO ID: [id number] Author: Eliot Castillo MD Service: ? Author Type: Physician Type: Progress Notes Filed: 05/04/2023 4:46 AM Note Text: Gynecologic Oncology [facility] Postop Re: Stefano Washington [facility]#: [id number] Date of Service: 05/03/2023 Dr. Jacky Graves [...] Dr. Nicole Maher review (more content not included)...[facility] [id number] Miscellaneous Notes* Telephone Encounter - Carl Encarnacion [...] advise. Baltazar Bazzi LPN documented in this encounterMercy Health St. Rita'[facility]09-06-2023 NoteMer[facility]09-05-2023 NoteMer[facility]09-04-2023 NoteMer[facility] Health [facility]09-03-2023 NoteMer[facility]09-02-2023 Note [facility]09-02-2023 NoteMer[facility]09-02-2023 NoteMer[facility]09-01-2023 NoteMer[facility] 04-09-2023 Miscellaneous Notes* Telephone Encounter - Tamiko Ramirez LPN - 04/09/2023 3:08 PM EDT Keisha from [facility] returned call and family declined Home Health, family wants patient to goto TCU or Rehab. [facility] will have to work on this [...] - 04/09/2023 1:42 PM EDT //Keisha from [facility] calling patient is currently in main campus had ovarian mass, discharging sometime over the weekend. They received order for group home, PT/OT. Asking if PCP would follow and sign orders and give verbal order for delay in start of care until 04/13/2023? Aware PCP is out of office this afternoon. Please advise documented in this encounterMercy Health St. Rita'S [facility] Center09-01-2023 [facility]08-31-2023 NoteMer[facility]08-30-2023 NoteMer[facility]08-30-2023 NoteMer[facility]08-30-2023 Note [facility]08-30-2023 NoteMercy [facility]08-29-2023 Instructions* Patient Instructions* Ousmane Jones APRN.ROGE CLEMONS - 04/06/2023 3:43 PM EDT PATIENT PREOPERATIVE INSTRUCTIONS No ref. provider found has scheduled you for your procedure at this surgery center: [facility] Scheduling Office: [phone] [address] [place] [address]. Please read below carefully for your personalized [...] Procedures: - YOU MUST HAVE A RESPONSIBLE MFTS TAKE YOU HOME. A METAL POLISHER AND BUFFER APPRENTICE OR SHOW DESIGN SUPERVISOR CANNOT BE MADE A RESPONSIBLE MFTS. - We recommend that a responsible person [...] call the Wednesday before. Your surgeon s pea viner mechanic will tell you what time to call the office. - If you have not reached the departmental pea viner mechanic by 5 P.M., call [phone] after 5 P.M. the day before your surgery. Please be aware that emergency situations arise, which may delay or change your surgical time. If this happens, we will notify you as soon as possible and regret any inconvenience. If you already have an Advance Directive, please fax a copy to [phone] or email to for it to be [...] Viviana Jones APRN.CNP, DNP documented in this encounterMercy Health St. Rita'S [facility] Center08-29-2023 Miscellaneous Notes* Telephone Encounter - Ousmane Jones APRN.CNP, DNP - 04/06/2023 3:43 PM EDT Preop instruction documented in this encounterMercy Health St. Rita'S Medical Center08-29-2023 History and physical note * Ousmane Jones, REBECCA.KACI, ROGE - 04/06/2023 3:00 PM EDT PREANESTHESIA CONSULT CLINIC TELEHEALTH VISIT I have communicated my name and active licensure. The patient's identity and physical location wereverified at the time of this visit. Either the patient or their legal personnel representative has been informed of the risks and benefits of and alternatives to treatment through a remote evaluation and consents to proceed with the evaluation remotely. Patient has been identified by name and date of : Yes This is a virtual visit using Playerize video visit. It require patient-provider interaction for the medical decision making as documented below. Reason for contact: PACC visit Accompanied by: Self Scheduled Surgery: HYSTERECTOMY ABDOMINAL TOTAL WITH SALPINGO-OOPHORECTOMY BILATERAL with Eliot Castillo MD on 04/07/2023 at [facility]. Subjective CHIEF COMPLAINT: Patient presents with: Anesthesia [...] fevers. Neuro: No history of TIA's, stroke, TELEGRAPH OPERATOR tumor, impaired sensorium, hemiplegia, paraplegia or quadraplegia. No neurological symptoms or problems. Respiratory: No history of current cough or dyspnea, or pneumonia in the past 6 weeks. No history of respiratory/pulmonary symptoms or problems. Cardiovascular: Positive for: HLD, Hypertension, on rx, PE on Eliquis 2 years ago during Covid infection, resolved with no reoccurrence, Negative for Recent WI, Angina, Arrhythmia, CAD, Chest Pain, CHF, PVD, Valvular Heart Disease GI: Positive for GERD, Giant hiatal hernia per recent CT abdomen/pelvis on rx, Negative for PUD, Heartburn, Nausea, Vomiting, Abdominal pain, Hepatitis, Liver disease, Inflammatory bowel disease, Colon cancer, Rectal cancer, Diverticulitis, History of polyps : Negative for dysuria, frequency, incontinence, decreased stream, and hematuria, Positive for mild bilateral hydronephrosis per CT abdomen/pelvis SEWER TAPPER: See HPI :No LMP recorded. Patient is [...] age Abnormal ECG Confirmed by MATT MOREJON, [facility] ([id number]) on 03/22/2023 2:44:01 PM Most [...] this time. Patient has been cleared by [facility] cardiology Desi Madison on 03/26/2023. Please see [...] device. I spent more than 0-20 minutes wykl-vz-ozaq with the patient and over half the [...] 2:42 PM PAGER/CONTACT #: documented in this encounterMercy Health St. Rita'S [facility] Center08-16-2023 Miscellaneous Notes* Telephone Encounter - Nanci Calloway - 03/24/2023 2:35 PM EDT Received CC in [facility] but patient will be receiving services elsewhere . documented in this encounterMercy Health St. Rita'S Medical Center08-16-2023 Miscellaneous Notes* Telephone Encounter - Annmarie Mendoza APRN.CNP - 03/24/2023 2:28 PM EDT Patient's daughter called to report they found a cardiology office closer to home that they would like to go to instead as it is much closer to home. Appointment arranged with Dr.Sharan Ashok Crane Sponge Clipper [phone] on Monday 03/26 @ 145pm. Will follow up with patient/daughter after appt to determine when surgery can be scheduled. Annmarie Mendoza APRN.KACI documented in this encounterMercy Health St. Rita'S [facility] Center08-14-2023 Miscellaneous Notes* Telephone Encounter - Tuyet Lorenz [...] Will await call/try again. documented in this encounterMercy Health St. Rita'S [facility] Center08-14-2023 Miscellaneous Notes* Telephone Encounter - Tuyet Lorenz [...] since her surgery is on Wednesday at [facility]. Thanks documented in this encounterMercy Health St. Rita'S [facility] Center08-14-2023 History of Present illness Narrative* Isamar Elizabeth [...] 22, 2023 1:22 PM documented in this encounterMercy Health St. Rita'S Medical Center08-14-2023 Miscellaneous Notes* [facility] Health - Belkis Milton - 03/22/2023 1:00 PM EDT RADIOLOGY SERVICE PROGRESS NOTE DATE OF SERVICE: March 22, 2023 TIME OF SERVICE: 12:34PM EVENT: ARRIVED IN WHEELCHAIR ADDITIONAL EVENT DETAILS: NA SIGNATURE: Belkis Milton PATIENT NAME: Stefano Washington DATE: March 22, 2023 TIME: 12:56 PM PAGER/CONTACT #: documented in this encounterMercy Health St. Rita'S [facility] Center08-08-2023 Miscellaneous Notes* Telephone Encounter - Kaye Mchugh RN - 03/16/2023 5:06 PM EDT Called daughter and informed her of appt made. I was told that [place] is not available for several months.I did schedule patient for [place] and daughter was agreeable because we could get her in with Dr Castillo in about 2 weeks. Phone number given to daughter if they wish to try to get into [place] [phone] * Telephone Encounter - Ely Rico MD - 03/16/2023 4:18 PM EDT Consult order filed Ely Rico MD * Telephone Encounter - Kaye Mchugh RN - 03/16/2023 3:48 PM EDT I called patient at the request of Dr Rico. Dr Rico has reviewed the patient referral from Dr Encarnacion and believes patient should be seen by master of ceremonies/onc. Keyur tis agreeable. She asked me to call her daughter Stefano Quezada at [phone] to let her know. Patient's daughter is agreeable but states they do not want to go to [place]. They will go to [place]. Please file referral and let us know who you recommend in [place] documented in this encounterMercy Health St. Rita'S [facility] Center08-01-2023 History of Present illness Narrative* Ioana Barger, [...] 2023 TIME: 1:26 PM documented in this encounterMercy Health St. Rita'S [facility]08-01-2023 NoteMer[facility]07-03-2023 Miscellaneous Notes* Telephone Encounter - Kristen Eugene [...] and advise. Kaye Donahue documented in this encounterMercy Health St. Rita'S [facility] Center06-27-2023 NoteMercy Health [facility]06-27-2023 History of Present illness Narrative* America Camejo, [...] Planned: 12 Planned Treatment Interventions: Therapeutic exercise (76923), Neuromuscular re- education (66990), Therapeutic activities (46893), Self-detention management (03673), Patient/Family/Caregiver Education, Gait Training (43971) PLAN FOR NEXT VISIT: Pt. instructed to [...] Treatment Interventions: Therapeutic Exercise, Therapeutic Activity, Self- Prison Management Evaluation Therapeutic Exercise: 1: *seated scapular [...] program as noted above with an (*). Self-Prison Management: 1: *instructed pt. to bring her [...] 45 America Camejo PT documented in this encounterMercy Health St. Rita'S [facility] Center06-27-2023 Miscellaneous Notes* Telephone Encounter - Matphilippe David Puckett LPN - 02/02/2023 11:35 AM EDT Spoke with pt's daughter and advised her of Kristen's message. She verbalizes understanding. She isrequesting to have referral faxed to [facility]. She is going to check with [...] welcomed to get a 2nd opinion from [facility]. We do have pain management in [place] from [facility]. Dr. Cohn and dr. White are private practice options in [place] as well if they would like to [...] appointment would be all the way in [place] and that is too far for patient. Daughter said she is going to take patient to [facility] for her back instead. This staff [...] assist with scheduling. Call daughter Stefano at [phone]. Thank you. * Telephone Encounter - Jeremiah [...] options. Kristen Eugene PA-C documented in this encounterMercy Health St. Rita'S [facility] Center06-21-2023 NoteMercy Health [facility]06-21-2023 NoteMercy Health [facility]06-21-2023 History of Present illness Narrative* Kristen Eugene [...] AP/LAT/L5-S1 Kristen Eugene PA-C documented in this encounterMercy Health St. Rita'S [facility] Center06-19-2023 Miscellaneous Notes* Telephone Encounter - Jeremiah Puckett [...] Quezada calling to verify lab order in [facility] so granddaughter can pickup driver urine specimen supplies. Please file order and contact daughter when done. # [phone]. Vijaya Bishop RN * Telephone Encounter - [...] Have those symptoms improved? documented in this encounterMercy Health St. Rita'S [facility] Center06-15-2023 Miscellaneous Notes* Telephone Encounter - Angeline Robbins RN - 01/21/2023 9:39 AM EDT Patient's Grand Daughter called and notified that prescription has been sent to pharmacy. Angeline Robbins RN * Telephone Encounter - Carl Encarnacion MD - 01/21/2023 8:57 AM EDT Let grand daughter know antibiotic sent to [facility]. The following approved medication requests have been transmitted electronically. Requested Prescriptions Signed Prescriptions Disp Refills sulfamethoxazole-trimethoprim (BACTRIM DS) 800-160 mg per tablet 14 tablet 0 Sig: Take 1 tablet by mouth twice daily for 7 days. Authorizing Provider: CARL ENCARNACOIN MD * Telephone Encounter - Angeline Robbins [...] advise, Angeline Robbins RN documented in this encounterMercy Health St. Rita'S Medical Center06-06-2023 History of Present illness Narrative* Barrera Daley APRN.KACI - 01/12/2023 10:20 AM EDT Patient triaged at [facility]. Here today with 12/10 mid back pain after fall few days ago. Patient in wheel chair, not able to walk well d/t pain. I will refer to ER, concerns with age and severity of pain. documented in this encounterMercy Health St. Rita'S Medical Center03-31-2023 Miscellaneous Notes* Telephone Encounter - Judi Julio Temo Pss - 11/06/2022 9:18 AM EDT Pharmacy verified in [facility] Patient has been identified by name and [...] Judi Julio Temo Pss documented in this encounterMercy Health St. Rita'S [facility] Center02-02-2023 Miscellaneous Notes* Telephone Encounter - Carl Encarnacion [...] patient. Stephanie Duarte Pss documented in this encounterMercy Health St. Rita'S [facility] Center12-12-2022 Miscellaneous Notes* Telephone Encounter - Amanda Kendrick - 07/20/2022 10:38 AM EST Patient given results and verbalized understanding of instructions given. Amanda Kendrick * Telephone Encounter - Barrera Daley APRN.CNP - 07/20/2022 9:55 AM EST Please notify negative chest xray for pneumonia. Large hiatal hernia noted, no action needed. May stop atb per note. F/u as discussed during visit. documented in this encounterMercy Health St. Rita'S Medical Center12-12-2022 History of Present illness Narrative* Monisha Donahue [...] 20, 2022 8:10 AM documented in this encounterMercy Health St. Rita'S Medical Center12-11-2022 History of Present illness Narrative* Isabel Older, SENIOR ORACLE APPLICATIONS DEVELOPER.ASSISTANT ENGINEER - 07/19/2022 11:47 AM EST CC: Patient [...] plan. Isabel Roca APRN.KACI documented in this encounterMercy Health St. Rita'S Medical Center11-21-2022 Miscellaneous Notes* Telephone Encounter - Jeremiah Puckett [...] reduce fat in diet. documented in this encounterMercy Health St. Rita'S Medical Center11-18-2022 Instructions* Patient Instructions* Carl Encarnacion MD - 06/26/2022 11:03 AM EST Consider getting the shingrix vaccine for the prevention of shingles from a local pharmacy documented in this encounterMercy Health St. Rita'S Medical Center11-18-2022 History of Present illness Narrative* Carl Encarnacion [...] Abs Lymph 1.00 - 4.00 k/uL 1.67 [place]% % 8.5 Abs [place] <0.87 k/uL 0.42 Eosin% % 2.6 Abs [...] Negative Negative Ketones, Urine Negative Negative Specific [place], Ur 1.005 - 1.030 1.006 Hemoglobin/Blood,Ur Negative [...] QUADRIVALENT HIGH DOSE AGE 65+: Given - amaysim-Videostrip COVID-19 BIVALENT BOOSTER VACCINE, AGE 12+ YR: [...] visit. Carl Encarnacion MD documented in this encounterMercy Health St. Rita'S [facility] Center11-02-2022 Miscellaneous Notes* Telephone Encounter - Carl Encarnacion [...] advise. Sherlyn Reza Pss documented in this encounterMercy Health St. Rita'S [facility] Center10-28-2022 Miscellaneous Notes* Telephone Encounter - Jeremiah Puckett [...] Thank you. Lorena Silver documented in this encounterMercy Health St. Rita'S [facility] Center10-17-2022 Miscellaneous Notes* Telephone Encounter - Carl Encarnacion MD - 05/25/2022 1:10 PM EDT Noted. * Telephone Encounter - Tamiko Ramirez LPN - 05/25/2022 12:53 PM EDT Gina from [employer] calling patient refused overnight pulse ox testing, patient said she returned her oxygen supplies and did not need to have done. documented in this encounterMercy Health St. Rita'S [facility] Center10-05-2022 Miscellaneous Notes* Telephone Encounter - Jeremiah Puckett LPN - 05/13/2022 1:00 PM EDT Spoke with Imelda and advised of Dr Encarnacion's message. She verbalizes understanding and will relay information. Jeremiah Puckett LPN * Telephone Encounter - Carl Encarnacion MD - 05/13/2022 12:44 PM EDT Testing needs done on room air. * Telephone Encounter - Yancy Wetzel RN - 05/13/2022 10:21 AM EDT Gina with [facility] calls to ask if provider wants pulse oximetry testing done on RA or with Oxygen? Noted patient is refusing to do testing and returning device on 05/07/2022 to [facility]. Equipment not returned yet. Gina asking if provider would want them to try and do it without oxygen to make sure her levels are WNL if patient is agreeable. Yancy Wetzel RN documented in this encounterMercy Health St. Rita'S [facility] Center09-29-2022 Miscellaneous Notes* Telephone Encounter - Lorena Silver - 05/07/2022 2:39 PM EDT Patient is refusing to schedule procedure at this time. She states she is returning her device. * Telephone Encounter - Keily Rico MA - 05/04/2022 5:02 PM EDT Faxed order to [facility] [place] Oximetry Nocturnal. Keily Rico MA Please schedule patient for Adult Oximetry with ambulation. (See PCP orders) Keily Rico MA * Telephone Encounter - Carl Encarnacion MD - 05/01/2022 6:08 PM EDT Oximetry with ambulation ordered. Please assist patient with getting set up. Nocturnal pulse ox order printed and ready to be faxed [place] [facility] * Telephone Encounter - Jeremiah Puckett LPN [...] will have her daughter take her to [facility] and she will hand them the oxygen equipment she has.Pt states she does not want to be mean but they are trying to pay for the cataract surgery and $8.00 is a lot to her. Please advise pt. Izzy Duarte LPN documented in this encounterMercy Health St. Rita'S [facility] Center08-09-2022 Miscellaneous Notes* Telephone Encounter - Carl Encarnacion [...] Please fax order to [employer]- fax # [phone] documented in [address] encounterMer[address] Health [address]. Rita'S [facility] Center08-05-2022 Miscellaneous Notes* Telephone Encounter - Kristen Eugene [...] patient. Stephanie Duarte Pss documented in this encounterMercy Health St. Rita'S [facility] Center05-09-2022 Miscellaneous Notes* Telephone Encounter - Carl Encarnacion [...] 40 mg a day? documented in this encounterMercy Health St. Rita'S Medical Center05-06-2022 History of Present illness Narrative* Carl Encarnacion [...] yrs, sigmoid diverticulosis, internal hemorrhoids EGD W/O [facility] SPECIMEN W/BX 02/14/09 hiatal hernia, esophagitis, gastritis [...] routine Carl Encarnacion MD documented in this encounterMercy Health St. Rita'S [facility] Center04-22-2022 Miscellaneous Notes* Telephone Encounter - MARI Rowell [...] notify patient. Stefany Estrada documented in this encounterMercy Health St. Rita'S Medical Center04-11-2022 Miscellaneous Notes* Telephone Encounter - Carl Encarnacion MD - 11/17/2021 1:23 PM EDT No changes in antibiotic needed at this time. * Telephone Encounter - Jeremiah Puckett LPN - 11/17/2021 7:32 AM EDT Received results of urine culture ordered by Kristen. Kristen is out of the office today. Results forwarded to Dr Encarnacion to review. Results on Dr Encarnacion's desk. Jeremiah Puckett LPN documented in this encounterMercy Health St. Rita'S [facility] Center04-08-2022 Miscellaneous Notes* Telephone Encounter - Sruthi Pisano [...] can not leave home. Melanie works for [employer] sowould collect urine and process that through [employer]. If willing can order be placed and [...] Patient has had frequent UTI's. Asking what PCP/[employer] would recommend. Please advise. [facility] of Past illness Narrative* Problem Noted Date Resolved Date Acute respiratory failure 06/18/20212021 Pain in joint, pelvic region and thigh 3 11/28/2012 Enthesopathy of hip region 10/27/201211/28 Acute gastritis without mention of hemorrhage 12/07/2014 Iron deficiency anemia, unspecified 02/14/2009 05/10/2018 documented as of this encounter (statuses as of 11/14/2021) [facility] History of Past illness Narrative* Problem Noted Date Resolved Date Acute respiratory failure 06/18/20212021 Pain in joint, pelvic region and thigh 3 11/28/2012 Enthesopathy of hip region 10/27/201211/28 Acute gastritis without mention of hemorrhage 12/07/2014 Iron deficiency anemia, unspecified 02/14/2009 05/10/2018 documented as of this encounter (statuses as of 11/17/2021) [facility] History of Past illness Narrative* Problem Noted Date Resolved Date Acute respiratory failure 06/18/20212021 Pain in joint, pelvic region and thigh 3 11/28/2012 Enthesopathy of hip region 10/27/201211/28 Acute gastritis without mention of hemorrhage 12/07/2014 Iron deficiency anemia, unspecified 02/14/2009 05/10/2018 documented as of this encounter (statuses as of 11/28/2021) [facility] History of Past illness Narrative* Problem Noted Date Resolved Date Acute respiratory failure 06/18/20212021 Pain in joint, pelvic region and thigh 3 11/28/2012 Enthesopathy of hip region 10/27/201211/28 Acute gastritis without mention of hemorrhage 12/07/2014 Iron deficiency anemia, unspecified 02/14/2009 05/10/2018 documented as of this encounter (statuses as of 12/13/2021) [facility] History of Past illness Narrative* Problem Noted Date Resolved Date Acute respiratory failure 06/18/20212021 Pain in joint, pelvic region and thigh 3 11/28/2012 Enthesopathy of hip region 10/27/201211/28 Acute gastritis without mention of hemorrhage 12/07/2014 Iron deficiency anemia, unspecified 02/14/2009 05/10/2018 documented as of this encounter (statuses as of 12/15/2021) [facility] History of Past illness Narrative* Problem Noted Date Resolved Date Acute respiratory failure 06/18/20212021 Pain in joint, pelvic region and thigh 3 11/28/2012 Enthesopathy of hip region 10/27/201211/28 Acute gastritis without mention of hemorrhage 12/07/2014 Iron deficiency anemia, unspecified 02/14/2009 05/10/2018 documented as of this encounter (statuses as of 03/13/2022) [facility] History of Past illness Narrative* Problem Noted Date Resolved Date Acute respiratory failure 06/18/20212021 Pain in joint, pelvic region and thigh 3 11/28/2012 Enthesopathy of hip region 10/27/201211/28 Acute gastritis without mention of hemorrhage 12/07/2014 Iron deficiency anemia, unspecified 02/14/2009 05/10/2018 documented as of this encounter (statuses as of 2022) [facility] of Past illness Narrative* Problem Noted Date Resolved Date Acute respiratory failure 06/18/20212021 Pain in joint, pelvic region and thigh 3 11/28/2012 Enthesopathy of hip region 10/27/201211/28 Acute gastritis without mention of hemorrhage 12/07/2014 Iron deficiency anemia, unspecified 02/14/2009 05/10/2018 documented as of this encounter (statuses as of 05/07/2022) [facility] History of Past illness Narrative* Problem Noted Date Resolved Date Acute respiratory failure 06/18/20212021 Pain in joint, pelvic region and thigh 3 11/28/2012 Enthesopathy of hip region 10/27/201211/28 Acute gastritis without mention of hemorrhage 12/07/2014 Iron deficiency anemia, unspecified 02/14/2009 05/10/2018 documented as of this encounter (statuses as of 05/13/2022) [facility] of Past illness Narrative* Problem Noted Date Resolved Date Acute respiratory failure 06/18/20212021 Pain in joint, pelvic region and thigh 3 11/28/2012 Enthesopathy of hip region 10/27/201211/28 Acute gastritis without mention of hemorrhage 12/07/2014 Iron deficiency anemia, unspecified 02/14/2009 05/10/2018 documented as of this encounter (statuses as of 05/25/2022) [facility] of Past illness Narrative* Problem Noted Date Resolved Date Acute respiratory failure 06/18/20212021 Pain in joint, pelvic region and thigh 3 11/28/2012 Enthesopathy of hip region 10/27/201211/28 Acute gastritis without mention of hemorrhage 12/07/2014 Iron deficiency anemia, unspecified 02/14/2009 05/10/2018 documented as of this encounter (statuses as of 06/05/2022) [facility] of Past illness Narrative* Problem Noted Date Resolved Date Acute respiratory failure 06/18/20212021 Pain in joint, pelvic region and thigh 3 11/28/2012 Enthesopathy of hip region 10/27/201211/28 Acute gastritis without mention of hemorrhage 12/07/2014 Iron deficiency anemia, unspecified 02/14/2009 05/10/2018 documented as of this encounter (statuses as of 06/10/2022) [facility] of Past illness Narrative* Problem Noted Date Resolved Date Acute respiratory failure 06/18/20212021 Pain in joint, pelvic region and thigh 3 11/28/2012 Enthesopathy of hip region 10/27/201211/28 Acute gastritis without mention of hemorrhage 12/07/2014 Iron deficiency anemia, unspecified 02/14/2009 05/10/2018 documented as of this encounter (statuses as of 06/28/2022) [facility] of Past illness Narrative* Problem Noted Date Resolved Date Acute respiratory failure 06/18/20212021 Pain in joint, pelvic region and thigh 3 11/28/2012 Enthesopathy of hip region 10/27/201211/28 Acute gastritis without mention of hemorrhage 12/07/2014 Iron deficiency anemia, unspecified 02/14/2009 05/10/2018 documented as of this encounter (statuses as of 06/29/2022) [facility] of Past illness Narrative* Problem Noted Date Resolved Date Acute respiratory failure 06/18/20212021 Pain in joint, pelvic region and thigh 3 11/28/2012 Enthesopathy of hip region 10/27/201211/28 Acute gastritis without mention of hemorrhage 12/07/2014 Iron deficiency anemia, unspecified 02/14/2009 05/10/2018 documented as of this encounter (statuses as of 07/19/2022) [facility] of Past illness Narrative* Problem Noted Date Resolved Date Acute respiratory failure 06/18/20212021 Pain in joint, pelvic region and thigh 3 11/28/2012 Enthesopathy of hip region 10/27/201211/28 Acute gastritis without mention of hemorrhage 12/07/2014 Iron deficiency anemia, unspecified 02/14/2009 05/10/2018 documented as of this encounter (statuses as of 07/20/2022) [facility] of Past illness Narrative* Problem Noted Date Resolved Date Acute respiratory failure 06/18/20212021 Pain in joint, pelvic region and thigh 3 11/28/2012 Enthesopathy of hip region 10/27/201211/28 Acute gastritis without mention of hemorrhage 12/07/2014 Iron deficiency anemia, unspecified 02/14/2009 05/10/2018 documented as of this encounter (statuses as of 09/10/2022) [facility] History of Past illness Narrative* Problem Noted Date Resolved Date Acute respiratory failure 06/18/20212021 Pain in joint, pelvic region and thigh 3 11/28/2012 Enthesopathy of hip region 10/27/201211/28 Acute gastritis without mention of hemorrhage 12/07/2014 Iron deficiency anemia, unspecified 02/14/2009 05/10/2018 documented as of this encounter (statuses as of 11/06/2022) [facility] of Past illness Narrative* Problem Noted Date Resolved Date Acute respiratory failure 06/18/20212021 Pain in joint, pelvic region and thigh 3 11/28/2012 Enthesopathy of hip region 10/27/201211/28 Acute gastritis without mention of hemorrhage 12/07/2014 Iron deficiency anemia, unspecified 02/14/2009 05/10/2018 documented as of this encounter (statuses as of 01/12/2023) [facility] of Past illness Narrative* Problem Noted Date Resolved Date Acute respiratory failure 06/18/20212021 Pain in joint, pelvic region and thigh 3 11/28/2012 Enthesopathy of hip region 10/27/201211/28 Acute gastritis without mention of hemorrhage 12/07/2014 Iron deficiency anemia, unspecified 02/14/2009 05/10/2018 documented as of this encounter (statuses as of 01/21/2023) [facility] of Past illness Narrative* Problem Noted Date Resolved Date Acute respiratory failure 06/18/20212021 Pain in joint, pelvic region and thigh 3 11/28/2012 Enthesopathy of hip region 10/27/201211/28 Acute gastritis without mention of hemorrhage 12/07/2014 Iron deficiency anemia, unspecified 02/14/2009 05/10/2018 documented as of this encounter (statuses as of 01/25/2023) [place] [address]-10-2021 History of Past illness Narrative* Problem Noted Date Resolved Date Acute respiratory failure 06/18/20212021 Pain in joint, pelvic region and thigh 3 11/28/2012 Enthesopathy of hip region 10/27/201211/28 Acute gastritis without mention of hemorrhage 12/07/2014 Iron deficiency anemia, unspecified 02/14/2009 05/10/2018 documented as of this encounter (statuses as of 01/27/2023) [address]10-2021 History of Past illness Narrative* Problem Noted Date Resolved Date Acute respiratory failure 06/18/20212021 Pain in joint, pelvic region and thigh 3 11/28/2012 Enthesopathy of hip region 10/27/201211/28 Acute gastritis without mention of hemorrhage 12/07/2014 Iron deficiency anemia, unspecified 02/14/2009 05/10/2018 documented as of this encounter (statuses as of 02/02/2023) [facility] illness Narrative* Problem Noted Date Resolved Date Acute respiratory failure 06/18/20212021 Pain in joint, pelvic region and thigh 3 11/28/2012 Enthesopathy of hip region 10/27/201211/28 Acute gastritis without mention of hemorrhage 12/07/2014 Iron deficiency anemia, unspecified 02/14/2009 05/10/2018 documented as of this encounter (statuses as of 02/03/2023) [facility] of Past illness Narrative* Problem Noted Date Resolved Date Acute respiratory failure 06/18/20212021 Pain in joint, pelvic region and thigh 3 11/28/2012 Enthesopathy of hip region 10/27/201211/28 Acute gastritis without mention of hemorrhage 12/07/2014 Iron deficiency anemia, unspecified 02/14/2009 05/10/2018 documented as of this encounter (statuses as of 02/08/2023) [facility] History of Past illness Narrative* Problem Noted Date Diagnosed Date Resolved Date Acute respiratory failure 06/18/2021 Pain in joint, pelvic region and thigh 10/27/2012 11/28/2012 Enthesopathy of hip region 10/27/2012 0 11/28/2012 Acute gastritis without mention of hemorrhage 02/15/20 09 12/07/2014 Iron deficiency anemia, unspecified 02/14/2009 05/10/2018 documented as of this encounter (statuses as of 2023) [facility] of Past illness Narrative* Problem Noted Date Diagnosed Date Resolved Date Acute respiratory failure 06/18/2021 Pain in joint, pelvic region and thigh 10/27/2012 11/28/2012 Enthesopathy of hip region 10/27/2012 0 11/28/2012 Acute gastritis without mention of hemorrhage 02/15/20 09 12/07/2014 Iron deficiency anemia, unspecified 02/14/2009 05/10/2018 documented as of this encounter (statuses as of 03/23/2023) [facility] of Past illness Narrative* Problem Noted Date Diagnosed Date Resolved Date Acute respiratory failure 06/18/2021 Pain in joint, pelvic region and thigh 10/27/2012 11/28/2012 Enthesopathy of hip region 10/27/2012 0 11/28/2012 Acute gastritis without mention of hemorrhage 02/15/20 09 12/07/2014 Iron deficiency anemia, unspecified 02/14/2009 05/10/2018 documented as of this encounter (statuses as of 03/23/2023) [facility] History of Past illness Narrative* Problem Noted Date Diagnosed Date Resolved Date Acute respiratory failure 06/18/2021 Pain in joint, pelvic region and thigh 10/27/2012 11/28/2012 Enthesopathy of hip region 10/27/2012 0 11/28/2012 Acute gastritis without mention of hemorrhage 02/15/20 09 12/07/2014 Iron deficiency anemia, unspecified 02/14/2009 05/10/2018 documented as of this encounter (statuses as of 03/23/2023) [facility] of Past illness Narrative* Problem Noted Date Diagnosed Date Resolved Date Acute respiratory failure 06/18/2021 Pain in joint, pelvic region and thigh 10/27/2012 11/28/2012 Enthesopathy of hip region 10/27/2012 0 11/28/2012 Acute gastritis without mention of hemorrhage 02/15/20 09 12/07/2014 Iron deficiency anemia, unspecified 02/14/2009 05/10/2018 documented as of this encounter (statuses as of 03/25/2023) [facility] of Past illness Narrative* Problem Noted Date Diagnosed Date Resolved Date Acute respiratory failure 06/18/2021 Pain in joint, pelvic region and thigh 10/27/2012 11/28/2012 Enthesopathy of hip region 10/27/2012 0 11/28/2012 Acute gastritis without mention of hemorrhage 02/15/20 09 12/07/2014 Iron deficiency anemia, unspecified 02/14/2009 05/10/2018 documented as of this encounter (statuses as of 03/29/2023) [facility] History of Past illness Narrative* Problem Noted Date Diagnosed Date Resolved Date Acute respiratory failure 06/18/2021 Pain in joint, pelvic region and thigh 10/27/2012 11/28/2012 Enthesopathy of hip region 10/27/2012 0 11/28/2012 Acute gastritis without mention of hemorrhage 02/15/20 09 12/07/2014 Iron deficiency anemia, unspecified 02/14/2009 05/10/2018 documented as of this encounter (statuses as of 04/07/2023) [facility] of Past illness Narrative* Problem Noted Date Diagnosed Date Resolved Date Acute respiratory failure 06/18/2021 Pain in joint, pelvic region and thigh 10/27/2012 11/28/2012 Enthesopathy of hip region 10/27/2012 0 11/28/2012 Acute gastritis without mention of hemorrhage 02/15/20 09 12/07/2014 Iron deficiency anemia, unspecified 02/14/2009 05/10/2018 documented as of this encounter (statuses as of 04/07/2023) [facility] of Past illness Narrative* Problem Noted Date Diagnosed Date Resolved Date Acute respiratory failure 06/18/2021 Pain in joint, pelvic region and thigh 10/27/2012 11/28/2012 Enthesopathy of hip region 10/27/2012 0 11/28/2012 Acute gastritis without mention of hemorrhage 02/15/20 09 12/07/2014 Iron deficiency anemia, unspecified 02/14/2009 05/10/2018 documented as of this encounter (statuses as of 04/12/2023) [facility] of Past illness Narrative* Problem Noted Date Diagnosed Date Resolved Date Acute respiratory failure 06/18/2021 Pain in joint, pelvic region and thigh 10/27/2012 11/28/2012 Enthesopathy of hip region 10/27/2012 0 11/28/2012 Acute gastritis without mention of hemorrhage 02/15/20 09 12/07/2014 Iron deficiency anemia, unspecified 02/14/2009 05/10/2018 documented as of this encounter (statuses as of 04/23/2023) [facility] of Past illness Narrative* Problem Noted Date Diagnosed Date Resolved Date Acute respiratory failure 06/18/2021 Pain in joint, pelvic region and thigh 10/27/2012 11/28/2012 Enthesopathy of hip region 10/27/2012 0 11/28/2012 Acute gastritis without mention of hemorrhage 02/15/20 09 12/07/2014 Iron deficiency anemia, unspecified 02/14/2009 05/10/2018 documented as of this encounter (statuses as of 05/02/2023) [facility] Past illness Narrative* Problem Noted Date Diagnosed Date Resolved Date Acute respiratory failure 06/18/2021 Pain in joint, pelvic region and thigh 10/27/2012 11/28/2012 Enthesopathy of hip region 10/27/2012 0 11/28/2012 Acute gastritis without mention of hemorrhage 02/15/20 09 12/07/2014 Iron deficiency anemia, unspecified 02/14/2009 05/10/2018 documented as of this encounter (statuses as of 05/04/2023) [facility] of Past illness Narrative* Problem Noted Date Diagnosed Date Resolved Date Acute respiratory failure 06/18/2021 Pain in joint, pelvic region and thigh 10/27/2012 11/28/2012 Enthesopathy of hip region 10/27/2012 0 11/28/2012 Acute gastritis without mention of hemorrhage 02/15/20 09 12/07/2014 Iron deficiency anemia, unspecified 02/14/2009 05/10/2018 documented as of this encounter (statuses as of 05/15/2023) [facility] of Past illness Narrative* Problem Noted Date Diagnosed Date Resolved Date Acute respiratory failure 06/18/2021 Pain in joint, pelvic region and thigh 10/27/2012 11/28/2012 Enthesopathy of hip region 10/27/2012 0 11/28/2012 Acute gastritis without mention of hemorrhage 02/15/20 09 12/07/2014 Iron deficiency anemia, unspecified 02/14/2009 05/10/2018 documented as of this encounter (statuses as of 05/31/2023) [facility] of Past illness Narrative* Problem Noted Date Diagnosed Date Resolved Date Acute respiratory failure 06/18/2021 Pain in joint, pelvic region and thigh 10/27/2012 11/28/2012 Enthesopathy of hip region 10/27/2012 0 11/28/2012 Acute gastritis without mention of hemorrhage 02/15/20 09 12/07/2014 Iron deficiency anemia, unspecified 02/14/2009 05/10/2018 documented as of this encounter (statuses as of 06/03/2023) [facility]arrative* Problem Noted Date Diagnosed Date Resolved Date Acute respiratory failure 06/18/2021 Pain in joint, pelvic region and thigh 10/27/2012 11/28/2012 Enthesopathy of hip region 10/27/2012 0 11/28/2012 Acute gastritis without mention of hemorrhage 02/15/20 09 12/07/2014 Iron deficiency anemia, unspecified 02/14/2009 05/10/2018 documented as of this encounter (statuses as of 06/04/2023) [facility] Past [facility]arrative* Problem Noted Date Diagnosed Date Resolved Date Acute respiratory failure 06/18/2021 Pain in joint, pelvic region and thigh 10/27/2012 11/28/2012 Enthesopathy of hip region 10/27/2012 0 11/28/2012 Acute gastritis without mention of hemorrhage 02/15/20 09 12/07/2014 Iron deficiency anemia, unspecified 02/14/2009 05/10/2018 documented as of this encounter (statuses as of 06/04/2023) [facility]ative* Problem Noted Date Diagnosed Date Resolved Date Acute respiratory failure 06/18/2021 Pain in joint, pelvic region and thigh 10/27/2012 11/28/2012 Enthesopathy of hip region 10/27/2012 0 11/28/2012 Acute gastritis without mention of hemorrhage 02/15/20 09 12/07/2014 Iron deficiency anemia, unspecified 02/14/2009 05/10/2018 documented as of this encounter (statuses as of 06/08/2023) [facility]arrative* Problem Noted Date Diagnosed Date Resolved Date Acute respiratory failure 06/18/2021 Pain in joint, pelvic region and thigh 10/27/2012 11/28/2012 Enthesopathy of hip region 10/27/2012 0 11/28/2012 Acute gastritis without mention of hemorrhage 02/15/20 09 12/07/2014 Iron deficiency anemia, unspecified 02/14/2009 05/10/2018 documented as of this encounter (statuses as of 06/08/2023) [facility]arrative* Problem Noted Date Diagnosed Date Resolved Date Acute respiratory failure 06/18/2021 Pain in joint, pelvic region and thigh 10/27/2012 11/28/2012 Enthesopathy of hip region 10/27/2012 0 11/28/2012 Acute gastritis without mention of hemorrhage 02/15/20 09 12/07/2014 Iron deficiency anemia, unspecified 02/14/2009 05/10/2018 documented as of this encounter (statuses as of 06/08/2023) [facility] of Past illness Narrative* Problem Noted Date Diagnosed Date Resolved Date Acute respiratory failure 06/18/2021 Pain in joint, pelvic region and thigh 10/27/2012 11/28/2012 Enthesopathy of hip region 10/27/2012 0 11/28/2012 Acute gastritis without mention of hemorrhage 02/15/20 09 12/07/2014 Iron deficiency anemia, unspecified 02/14/2009 05/10/2018 documented as of this encounter (statuses as of 06/11/2023) [facility]arrative* Problem Noted Date Diagnosed Date Resolved Date Acute respiratory failure 06/18/2021 Pain in joint, pelvic region and thigh 10/27/2012 11/28/2012 Enthesopathy of hip region 10/27/2012 0 11/28/2012 Acute gastritis without mention of hemorrhage 02/15/20 09 12/07/2014 Iron deficiency anemia, unspecified 02/14/2009 05/10/2018 documented as of this encounter (statuses as of 06/12/2023) [facility] Past [facility] Narrative* Problem Noted Date Diagnosed Date Resolved Date Acute respiratory failure 06/18/2021 Pain in joint, pelvic region and thigh 10/27/2012 11/28/2012 Enthesopathy of hip region 10/27/2012 0 11/28/2012 Acute gastritis without mention of hemorrhage 02/15/20 09 12/07/2014 Iron deficiency anemia, unspecified 02/14/2009 05/10/2018 documented as of this encounter (statuses as of 06/13/2023) [facility]arrative* Problem Noted Date Diagnosed Date Resolved Date Acute respiratory failure 06/18/2021 Pain in joint, pelvic region and thigh 10/27/2012 11/28/2012 Enthesopathy of hip region 10/27/2012 0 11/28/2012 Acute gastritis without mention of hemorrhage 02/15/20 09 12/07/2014 Iron deficiency anemia, unspecified 02/14/2009 05/10/2018 documented as of this encounter (statuses as of 06/13/2023) [facility] of Past illness Narrative* Problem Noted Date Diagnosed Date Resolved Date Acute respiratory failure 06/18/2021 Pain in joint, pelvic region and thigh 10/27/2012 11/28/2012 Enthesopathy of hip region 10/27/2012 0 11/28/2012 Acute gastritis without mention of hemorrhage 02/15/20 09 12/07/2014 Iron deficiency anemia, unspecified 02/14/2009 05/10/2018 documented as of this encounter (statuses as of 06/13/2023) [facility] Past [facility]arrative* Problem Noted Date Diagnosed Date Resolved Date Acute respiratory failure 06/18/2021 Pain in joint, pelvic region and thigh 10/27/2012 11/28/2012 Enthesopathy of hip region 10/27/2012 0 11/28/2012 Acute gastritis without mention of hemorrhage 02/15/20 09 12/07/2014 Iron deficiency anemia, unspecified 02/14/2009 05/10/2018 documented as of this encounter (statuses as of 06/17/2023) [facility] of Past illness Narrative* Problem Noted Date Diagnosed Date Resolved Date Acute respiratory failure 06/18/2021 Pain in joint, pelvic region and thigh 10/27/2012 11/28/2012 Enthesopathy of hip region 10/27/2012 0 11/28/2012 Acute gastritis without mention of hemorrhage 02/15/20 09 12/07/2014 Iron deficiency anemia, unspecified 02/14/2009 05/10/2018 documented as of this encounter (statuses as of 07/07/2023) [facility] of Past illness Narrative* Problem Noted Date Diagnosed Date Resolved Date Acute respiratory failure 06/18/2021 Pain in joint, pelvic region and thigh 10/27/2012 11/28/2012 Enthesopathy of hip region 10/27/2012 0 11/28/2012 Acute gastritis without mention of hemorrhage 02/15/20 09 12/07/2014 Iron deficiency anemia, unspecified 02/14/2009 05/10/2018 documented as of this encounter (statuses as of 07/13/2023) [facility] of Past illness Narrative* Problem Noted Date Diagnosed Date Resolved Date Acute respiratory failure 06/18/2021 Pain in joint, pelvic region and thigh 10/27/2012 11/28/2012 Enthesopathy of hip region 10/27/2012 0 11/28/2012 Acute gastritis without mention of hemorrhage 02/15/20 09 12/07/2014 Iron deficiency anemia, unspecified 02/14/2009 05/10/2018 documented as of this encounter (statuses as of 07/13/2023) [facility]-10-[facility]21 History of Past illness Narrative* Problem Noted Date Diagnosed Date Resolved Date Acute respiratory failure 06/18/2021 Pain in joint, pelvic region and thigh 10/27/2012 11/28/2012 Enthesopathy of hip region 10/27/2012 0 11/28/2012 Acute gastritis without mention of hemorrhage 02/15/20 09 12/07/2014 Iron deficiency anemia, unspecified 02/14/2009 05/10/2018 documented as of this encounter (statuses as of 07/17/2023) [facility]-10-2021 History of Past illness Narrative* Problem Noted Date Diagnosed Date Resolved Date Acute respiratory failure 06/18/2021 Pain in joint, pelvic region and thigh 10/27/2012 11/28/2012 Enthesopathy of hip region 10/27/2012 0 11/28/2012 Acute gastritis without mention of hemorrhage 02/15/2012/07/2014 Iron deficiency anemia, unspecified 02/14/2009 05/10/2018 documented as of this encounter (statuses as of 07/27/2023) [facility]-10-[facility]21 History of Past illness Narrative* Problem Noted [...] of this encounter (statuses as of 10/07/2023) [facility]11-10-[facility]21 History of Past illness Narrative* Problem Noted [...] of this encounter (statuses as of 11/25/2023) [facility] Future Appointments Appointment Date:09/16/2023 02:45:00 PM Scheduled Provider: Location:[facility] Appointment Type:CV [facility] Evaluation note* Diagnosis Frequent UTI- Primary Urinary tract infection, site not specified Confusion Unspecified psychosis [facility]* Diagnosis Essential hypertension- Primary Unspecified essential hypertension Mixed hyperlipidemia Acquired hypothyroidism Unspecified hypothyroidism History of pulmonary embolism Personal history of pulmonary embolism Gastroesophageal reflux disease without esophagitis Esophageal reflux Osteoarthritis of multiple joints, unspecified osteoarthritis type Medication management Encounter for long-term (current) use of other medications [facility] this [facility]* Diagnosis Osteoarthritis of multiple joints, unspecified osteoarthritis type [facility] this [facility]* Diagnosis Hypoxia- Primary Hypoxemia documented in this [facility] Diagnosis Osteoarthritis of multiple joints, unspecified osteoarthritis type [facility]* Diagnosis Essential hypertension- Primary Unspecified essential hypertension Mixed hyperlipidemia Gastroesophageal reflux disease without esophagitis Esophageal reflux Acquired hypothyroidism Unspecified hypothyroidism Aortic stenosis, moderate Aortic valve disorders Osteoarthritis of multiple joints, unspecified osteoarthritis type Encounter for immunization Need for other specified prophylactic vaccination against single bacterial disease Advance directive discussed with patient Other specified counseling documented in this encounter [facility] note* Diagnosis Acute cough- Primary Wheezing [facility] this [facility]* Diagnosis Osteoarthritis of multiple joints, unspecified osteoarthritis type documented in this encounter [facility] noteNo assessment information availableWMorrow County [facility] Work Phone: Evaluation note* Diagnosis Severe back pain- Primary Backache, unspecified Fall, initial encounter documented in this encounter [facility]* Diagnosis Urinary frequency- Primary [facility]* Diagnosis Sciatica, right side- Primary Fall, subsequent encounter documented in this [facility]* Diagnosis Chronic low back pain with sciatica, sciatica laterality unspecified, unspecified back pain laterality- Primary Compression fracture of T11 vertebra, initial encounter ([facility]) documented in this encounter [facility] note* Diagnosis Sciatica, right side- Primary Falls, subsequent encounter [facility] this encounter [facility]* Diagnosis Ovarian mass- Primary Unspecified noninflammatory disorder of ovary, fallopian tube, and broad ligament documented in this encounter [facility] note* Diagnosis Preop examination- Primary Preoperative examination, unspecified Ovarian mass Unspecified noninflammatory disorder of ovary, fallopian tube, and broad ligament Preop examination Preoperative examination, unspecified documented in this encounter [facility]* Diagnosis Ovarian mass Unspecified noninflammatory disorder of ovary, fallopian tube, and broad ligament Preop examination Preoperative examination, unspecified documented in this encounter [facility]* Diagnosis Ovarian mass Unspecified noninflammatory disorder of ovary, fallopian tube, and broad ligament Preop examination Preoperative examination, unspecified documented [facility] this [facility]* Diagnosis Pre-op evaluation- Primary Preoperative examination, unspecified Acquired hypothyroidism Unspecified hypothyroidism Essential hypertension Unspecified essential hypertension Gastroesophageal reflux disease without esophagitis Esophageal reflux History of pulmonary embolism Personal history of pulmonary embolism Aortic stenosis, moderate Aortic valve disorders documented in this encounter [facility]* Diagnosis 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 Malignant neoplasm of ovary Post-operative state Other postprocedural status documented in this encounter 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* Diagnosis 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 Malignant neoplasm of ovary documented in this [facility]* Diagnosis Encounter for education- Primary Counseling NOS documented in this encounter [facility]* Diagnosis 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 Malignant neoplasm of ovary documented in this encounter [facility]* Diagnosis Osteoarthritis of multiple joints, unspecified osteoarthritis type documented in this encounter [facility]* Diagnosis 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 Malignant neoplasm of ovary [facility]* Diagnosis Osteoarthritis of multiple joints, unspecified osteoarthritis type documented in this encounter [facility]* Diagnosis Pelvic mass Abdominal or pelvic swelling, mass or lump, unspecified site documented in this encounter [facility]* Diagnosis Sciatica, right side Fall, subsequent encounter documented [facility] this 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* Diagnosis Osteoarthritis of multiple joints, unspecified osteoarthritis type documented in this encounter 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 neoplasm of ovary documented in this encounter [facility] note* Diagnosis Osteoarthritis of multiple joints, unspecified osteoarthritis type documented in this encounter [facility] note* Diagnosis Onset Date Resolution Status Fall acute Generalized weakness acute Rhabdomyolysis acute Urinary tract infection [facility] Work Phone: Evaluation note* Diagnosis Osteoarthritis of multiple joints, unspecified osteoarthritis type documented in this encounter [facility] note* Diagnosis Recurrent UTI (urinary tract infection)- Primary Urinary tract infection, site not specified Essential hypertension Unspecified essential hypertension Malignant neoplasm of ovary, unspecified laterality (HCC) Aortic stenosis, moderate Aortic valve disorders documented in this encounter [facility] note* Diagnosis Recurrent UTI (urinary tract infection)- Primary Urinary tract infection, site not specified documented in this encounter [facility] note* Diagnosis Essential hypertension, malignant- Primary documented in this encounter [facility] note* Diagnosis Recurrent UTI (urinary tract infection)- Primary Urinary tract infection, site not specified documented in this encounter [facility] note* Diagnosis Takotsubo cardiomyopathy- Primary Takotsubo syndrome documented in this encounter [facility] note* Diagnosis Acute cough Wheezing Pre-op evaluation- Primary Preoperative examination, unspecified Acquired hypothyroidism Unspecified hypothyroidism Essential hypertension Unspecified essential hypertension Gastroesophageal reflux disease without esophagitis Esophageal reflux History of pulmonary embolism Personal history of pulmonary embolism Aortic stenosis, moderate Aortic valve disorders documented in this encounter [facility] course Narrative No data available for this section [facility] Discharge instructions No data available for this section [facility] Progress note No data available for this section [facility] Reason for referral (narrative)* Outpatient Procedure (Routine) - Pending Review Specialty Diagnoses / Procedures Referred By Bella cobian Referred To Contact [facility] Diagnoses Hypoxia Procedures OXIMETRY WITH AMBULATION NONINVASIVE EAR/PULSE OXIMETRY MULTIPLE DETER Carl Encarnacion MD [address] [place] [address] [facility] [place] [address] [place] [id number] Referral ID Status Reason Start Date Expiration Date Visits Requested Visits Authorized [id number] Pending Review Auto-Generat ed Referral 05/01/2022 05/31/2023 1 1 [facility] for referral (narrative)* Diagnostic Procedure Only (Routine) - Closed Specialty Diagnoses / Procedures Referred By Contac t Referred To Contact XR IMAGING Diagnoses Sciatica, right side Fall, subsequent encounter Procedures XR LUMBAR GENERAL 3V AP/LAT/L5-S1 RADEX SPINE LUMBOSACRAL 2/3 VIEWS Kristen Eugene PA-C [address] [id number] Xr Imaging Referral ID Status Reason Start Date Expiration Date V isits Requested Visits Authorized [id number] Closed Auto-Generate d Referral 01/27/2023 02/26/2024 1 1 * Physical Therapy (Routine) - Authorized Specialty Diagnoses / Procedures Referred By Contac t Referred To Contact [facility] Diagnoses Sciatica, right side Fall, subsequent encounter Procedures CONSULT TO PHYSICAL THERAPY PHYSICAL THERAPY EVALUATION HIGH COMPLEX 45 MINS THERAPEUTIC EXERCISES RE, EA 15 MIN. Kristen Eugene PA-C [address] [place] [address] [facility] [address] [address] Referral ID Status Reason Start Date Expiration Date Visits Requested Visits Authorized [id number] Authorized Auto-Generat ed Referral 08/09/2022 08/08/2023 20 20 [facility] for referral (narrative)* Outpatient Procedure (Urgent) - Authorized Specialty Diagnoses / Procedures Referred By Contac t Referred To Contact [facility] Diagnoses Preop examination Procedures ECHO ECHO TTHRC R-T 2D W/WOM-MODE COMPL SPEC&[place] [address] [place] [address] [place] [id number] Referral ID Status Reason Start Date Expiration Date Visits Requested Visits Authorized [id number] Authorized Auto-Generat ed Referral 03/22/2023 03/21/2024 1 1 [facility] for referral (narrative)* Outpatient Procedure (Routine) - Closed Specialty Diagnoses / Procedures Referred By Contac t Referred To Contact [facility] Diagnoses Ovarian mass Preop examination Procedures ECG COMPLETE ECG ROUTINE ECG W/LEAST 12 LDS W/I&R Annmarie Mendoza APRN.ASSISTANT ENGINEER [address] [place] [address] [place] [id number] Referral ID Status Reason Start Date Expiration Date V isits Requested Visits Authorized [id number] Closed Auto-Generate d Referral 03/22/2023 03/21/2024 1 1 [facility] for referral (narrative)* Diagnostic Procedure Only (Routine) - Closed Specialty Diagnoses / Procedures Referred By Contac t Referred To Contact XR IMAGING Diagnoses Sciatica, right side Fall, subsequent encounter Procedures XR LUMBAR GENERAL 3V AP/LAT/L5-S1 RADEX SPINE LUMBOSACRAL 2/3 VIEWS Kristen Eugene PA-C [address] [place] [address] Xr Imaging [facility] Referral ID Status Reason Start Date Expiration Date V isits Requested Visits Authorized [id number] Closed Auto-Generate d Referral 01/27/2023 02/26/2024 1 1 [facility] for referral (narrative)No reason for referral information availableWMorrow County Hospital Work Phone: Reason for visit Narrative* Outpatient Procedure (Routine) - Closed Specialty Diagnoses / Procedures Referred By Contac t Referred To Contact [facility] Diagnoses Ovarian mass Preop examination Procedures ECG COMPLETE ECG ROUTINE ECG W/LEAST 12 LDS W/I&R Annmarie Mendoza, SENIOR [employer] APPLICATIONS DEVELOPER.ASSISTANT ENGINEER [address] [place] [address] [facility] [address] [place] [address] Referral ID Status Reason Start Date Expiration Date V isits Requested Visits Authorized [id number] Closed Auto-Generate d Referral 03/22/2023 03/21/2024 1 1 [facility] for visit Narrative* Diagnostic Procedure Only (Routine) - Closed Specialty Diagnoses / Procedures Referred By Contac t Referred To Contact XR IMAGING Diagnoses Sciatica, right side Fall, subsequent encounter Procedures XR LUMBAR GENERAL 3V AP/LAT/L5-S1 RADEX SPINE LUMBOSACRAL 2/3 VIEWS Kristen Eugene PA-C [address] [place] [address] [place] [id number] Referral ID Status Reason Start Date Expiration Date V isits Requested Visits Authorized [id number] Closed Auto-Generate d Referral 01/27/2023 02/26/2024 [address] [facility] Chief Complaint and Reason for Visit Chief [...] MONTHLY EXAM August 11, 2024 5: 27pm CORRECTION LAB WORK September 03, 2024 1:00pm MONTHLY EXAM September 12, 2024 8 :04pm CORRECTION LAB WORK September 14, 2024 5:00am LABWORK September 18, 2024 5:00am LABWORK September 25, 2024 7:00am NEW CONCERN September 27, 2024 2:16pm [facility]RE[facility] WORK September 27 2:30pm LABWORK October 16, 2024 5:0 0am Chief Complaint Admit Date LABWORK August 07, 2024 5:00am MONTHLY EXAM August 11, 2024 5: 27pm [facility]RE[facility] WORK September 03, 2024 1:00pm MONTHLY EXAM September 12, 2024 8 :04pm [facility]RE[facility] LAB WORK September 14, 2024 5:00am LABWORK September 18, 2024 5:00am LABWORK September 25, 2024 7:00am NEW CONCERN September 27, 2024 2:16pm CORRECTION LAB WORK September 27 2:30pm LABWORK October 16, 2024 5:0 0am MONTHLY EXAM October 19, 2024 9:2 9am LABWORK October 30, 2024 5:0 0am Chief Complaint Admit Date LABWORK August 07, 2024 5:00am MONTHLY EXAM August 11, 2024 5: 27pm [facility]RE[facility] LAB WORK September 03, 2024 1:00pm MONTHLY EXAM September 12, 2024 8 :04pm CORRECTION LAB WORK September 14, 2024 5:00am LABWORK September 18, 2024 5:00am LABWORK September 25, 2024 7:00am NEW CONCERN September 27, 2024 2:16pm [facility]RE[facility] LAB WORK September 27 2:30pm LABWORK October 16, 2024 5:0 0am MONTHLY EXAM October 19, 2024 9:2 9am LABWORK October 30, 2024 5:0 0am CORRECTION LAB WORK November 02, 2024 5 :00am Advance Directives No Advanced Directives Records Found Advance Directive Response Recorded Date/ Time Living Will No January 12, 2023 1 0:27am Power of Variety Performer No January 12, 2023 10:27am Name of Medical Power of Variety Performer ? January 12, 2023 10:26am Advance Directive Response Recorded Date/ Time Living Will No November 23, 2023 8:14am Power of Variety Performer No November 22 8:14am Advance Directive Response Recorded Date/ Time Living Will No November 23, 2023 12:55pm Power of Variety Performer No November 22 12:55pm Reason for Referral Specialty Diagnoses / Procedures Referred By Bella t Referred To Contact Orthopedics Diagnoses Chronic low back pain with sciatica, sciatica laterality unspecified, unspecified back pain laterality Compression fracture of T11 vertebra, initial encounter (HCC) Procedures CONSULT TO ORTHOPAEDICS OFFICE/OUTPATIENT [facility] 60-74 MINUTES Kristen Eugene PA-C [address] [place] [address] Referral ID Status Reason Start Date Expiration Date Visits Requested Visits Authorized [id number] Pending Review PCP Requested Referral 02/02/2023 02/02/2024 1 1 Specialty Diagnoses / Procedures Referred By Contac t Referred To Contact Pain Management Diagnoses Chronic low back pain with sciatica, sciatica laterality unspecified, unspecified back pain laterality Compression fracture of T11 vertebra, initial encounter ([facility]) Procedures CONSULT TO PAIN MGT OFFICE/OUTPATIENT [facility] 60-74 MINUTES Kristen Eugene PA-C [address] [place] [address] Referral ID Status Reason Start Date Expiration Date Visits Requested Visits Authorized [id number] Pending Review PCP Requested Referral 02/02/2023 02/02/2024 1 1 Specialty Diagnoses / Procedures Referred By Contac t Referred To Contact [facility] Diagnoses Sciatica, right side Falls, subsequent encounter Procedures PT REHAB FOLLOW UP ORDER THERAPEUTIC EXERCISES RE, EA 15 MIN. America Camejo, PT [facility] [address] [place] [address] Referral ID Status Reason Start Date Expiration Date Visits Requested Visits Authorized [id number] Pending Review PCP Requested Referral Auto-Generate d Referral 02/02/2023 05/03/2023 1 1 Specialty Diagnoses / Procedures Referred By Contac t Referred To Contact Diagnoses Ovarian mass Procedures CONSULT TO GYNECOLOGIC/ONCOLOGY OFFICE/OUTPATIENT [facility] 60-74 MINUTES Ely Rico MD [address] [place] [address] Referral ID Status Reason Start Date Expiration Date Visits Requested Visits Authorized [id number] Pending Review PCP Requested Referral Auto-Generate d Referral 03/16/2023 03/15/2024 1 1 Specialty Diagnoses / Procedures Referred By Contac t Referred To Contact Diagnoses 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 (HCC) Procedures CONSULT TO HEMATOLOGY/ONCOLOGY OFFICE/OUTPATIENT [facility] 60-74 MINUTES Annmarie Mendoza APRN.ASSISTANT ENGINEER [address] [place] [address] Wilmar Forbes DO [address] [place] [address] Referral ID Status Reason Start Date Expiration Date Visits Requested Visits Authorized [id number] Pending Review PCP Requested Referral 05/03/2023 05/02/2024 1 1 Specialty Diagnoses / Procedures Referred By Contac t Referred To Contact CT IMAGING Diagnoses Pelvic mass Procedures CT ABD/PEL W IVCON CT ABD & PELVIS W/CONTRAST Carl Encarnacion MD [address] [place] [address] [place] [address] Referral ID Status Reason Start Date Expiration Date V isits Requested Visits Authorized [id number] Closed Auto-Generate d Referral 02/26/2023 03/27/2024 1 1 Specialty Diagnoses / Procedures Referred By Contac t Referred To Contact Diagnoses Osteoarthritis of multiple joints, unspecified osteoarthritis type Kristen Eugene PA-C [address] [place] [address] Referral ID Status Reason Start Date Expiration Date Visits Re quested Visits Authorized [id number] Closed 1 1 Summary Purpose Family History [...] or prosecute any alcohol or drug abuse patient.[facility] Center[facility] the event this information is protected by the Federal Confidentiality of Alcohol and Drug Abuse Patient Records regulations: The Federal rules restrict any use of the information to criminally investigate or prosecute any alcohol or drug abuse patient.[facility] CenterIn the event this information is protected by the Federal Confidentiality of Alcohol and Drug Abuse Patient Records regulations: The Federal rules restrict any use of the information to criminally investigate or prosecute any alcohol or drug abuse patient.[facility] CenterIn the event this information is protected by the Federal Confidentiality of Alcohol and Drug Abuse Patient Records regulations: The Federal rules restrict any use of the information to criminally investigate or prosecute any alcohol or drug abuse patient.[facility] CenterIn the event this information is protected by the Federal Confidentiality of Alcohol and Drug Abuse Patient Records regulations: The Federal rules restrict any use of the information to criminally investigate or prosecute any alcohol or drug abuse patient.[facility] CenterIn the event this information is protected by the Federal Confidentiality of Alcohol and Drug Abuse Patient Records regulations: The Federal rules restrict any use of the information to criminally investigate or prosecute any alcohol or drug abuse patient.[facility] CenterIn the event this information is protected by the Federal Confidentiality of Alcohol and Drug Abuse Patient Records regulations: The Federal rules restrict any use of the information to criminally investigate or prosecute any alcohol or drug abuse patient.[facility] CenterIn the event this information is protected by the Federal Confidentiality of Alcohol and Drug Abuse Patient Records regulations: The Federal rules restrict any use of the information to criminally investigate or prosecute any alcohol or drug abuse patient.[facility] CenterIn the event this information is protected by the Federal Confidentiality of Alcohol and Drug Abuse Patient Records regulations: The Federal rules restrict any use of the information to criminally investigate or prosecute any alcohol or drug abuse patient.[facility] CenterIn the event this information is protected by the Federal Confidentiality of Alcohol and Drug Abuse Patient Records regulations: The Federal rules restrict any use of the information to criminally investigate or prosecute any alcohol or drug abuse patient.[facility] CenterIn the event this information is protected by the Federal Confidentiality of Alcohol and Drug Abuse Patient Records regulations: The Federal rules restrict any use of the information to criminally investigate or prosecute any alcohol or drug abuse patient.[facility] CenterIn the event this information is protected by the Federal Confidentiality of Alcohol and Drug Abuse Patient Records regulations: The Federal rules restrict any use of the information to criminally investigate or prosecute any alcohol or drug abuse patient.[facility] CenterIn the event this information is protected by the Federal Confidentiality of Alcohol and Drug Abuse Patient Records regulations: The Federal rules restrict any use of the information to criminally investigate or prosecute any alcohol or drug abuse patient.[facility] CenterIn the event this information is protected by the Federal Confidentiality of Alcohol and Drug Abuse Patient Records regulations: The Federal rules restrict any use of the information to criminally investigate or prosecute any alcohol or drug abuse patient.[facility] CenterIn the event this information is protected by the Federal Confidentiality of Alcohol and Drug Abuse Patient Records regulations: The Federal rules restrict any use of the information to criminally investigate or prosecute any alcohol or drug abuse patient.[facility] CenterIn the event this information is protected by the Federal Confidentiality of Alcohol and Drug Abuse Patient Records regulations: The Federal rules restrict any use of the information to criminally investigate or prosecute any alcohol or drug abuse patient.[facility] CenterIn the event this information is protected by the Federal Confidentiality of Alcohol and Drug Abuse Patient Records regulations: The Federal rules restrict any use of the information to criminally investigate or prosecute any alcohol or drug abuse patient.[facility] CenterIn the event this information is protected by the Federal Confidentiality of Alcohol and Drug Abuse Patient Records regulations: The Federal rules restrict any use of the information to criminally investigate or prosecute any alcohol or drug abuse patient.[facility] CenterIn the event this information is protected by the Federal Confidentiality of Alcohol and Drug Abuse Patient Records regulations: The Federal rules restrict any use of the information to criminally investigate or prosecute any alcohol or drug abuse patient.[facility] CenterIn the event this information is protected by the Federal Confidentiality of Alcohol and Drug Abuse Patient Records regulations: The Federal rules restrict any use of the information to criminally investigate or prosecute any alcohol or drug abuse patient.[facility] CenterIn the event this information is protected by the Federal Confidentiality of Alcohol and Drug Abuse Patient Records regulations: The Federal rules restrict any use of the information to criminally investigate or prosecute any alcohol or drug abuse patient.[facility] CenterIn the event this information is protected by the Federal Confidentiality of Alcohol and Drug Abuse Patient Records regulations: The Federal rules restrict any use of the information to criminally investigate or prosecute any alcohol or drug abuse patient.[facility] CenterIn the event this information is protected by the Federal Confidentiality of Alcohol and Drug Abuse Patient Records regulations: The Federal rules restrict any use of the information to criminally investigate or prosecute any alcohol or drug abuse patient.[facility] CenterIn the event this information is protected by the Federal Confidentiality of Alcohol and Drug Abuse Patient Records regulations: The Federal rules restrict any use of the information to criminally investigate or prosecute any alcohol or drug abuse patient.[facility] CenterIn the event this information is protected by the Federal Confidentiality of Alcohol and Drug Abuse Patient Records regulations: The Federal rules restrict any use of the information to criminally investigate or prosecute any alcohol or drug abuse patient.[facility] CenterIn the event this information is protected by the Federal Confidentiality of Alcohol and Drug Abuse Patient Records regulations: The Federal rules restrict any use of the information to criminally investigate or prosecute any alcohol or drug abuse patient.[facility] CenterIn the event this information is protected by the Federal Confidentiality of Alcohol and Drug Abuse Patient Records regulations: The Federal rules restrict any use of the information to criminally investigate or prosecute any alcohol or drug abuse patient.[facility] CenterIn the event this information is protected by the Federal Confidentiality of Alcohol and Drug Abuse Patient Records regulations: The Federal rules restrict any use of the information to criminally investigate or prosecute any alcohol or drug abuse patient.[facility] CenterIn the event this information is protected by the Federal Confidentiality of Alcohol and Drug Abuse Patient Records regulations: The Federal rules restrict any use of the information to criminally investigate or prosecute any alcohol or drug abuse patient.[facility] CenterIn the event this information is protected by the Federal Confidentiality of Alcohol and Drug Abuse Patient Records regulations: The Federal rules restrict any use of the information to criminally investigate or prosecute any alcohol or drug abuse patient.[facility] CenterIn the event this information is protected by the Federal Confidentiality of Alcohol and Drug Abuse Patient Records regulations: The Federal rules restrict any use of the information to criminally investigate or prosecute any alcohol or drug abuse patient.[facility] CenterIn the event this information is protected by the Federal Confidentiality of Alcohol and Drug Abuse Patient Records regulations: The Federal rules restrict any use of the information to criminally investigate or prosecute any alcohol or drug abuse patient.[facility] CenterIn the event this information is protected by the Federal Confidentiality of Alcohol and Drug Abuse Patient Records regulations: The Federal rules restrict any use of the information to criminally investigate or prosecute any alcohol or drug abuse patient.[facility] CenterIn the event this information is protected by the Federal Confidentiality of Alcohol and Drug Abuse Patient Records regulations: The Federal rules restrict any use of the information to criminally investigate or prosecute any alcohol or drug abuse patient.[facility] CenterIn the event this information is protected by the Federal Confidentiality of Alcohol and Drug Abuse Patient Records regulations: The Federal rules restrict any use of the information to criminally investigate or prosecute any alcohol or drug abuse patient.[facility] CenterIn the event this information is protected by the Federal Confidentiality of Alcohol and Drug Abuse Patient Records regulations: The Federal rules restrict any use of the information to criminally investigate or prosecute any alcohol or drug abuse patient.[facility] CenterIn the event this information is protected by the Federal Confidentiality of Alcohol and Drug Abuse Patient Records regulations: The Federal rules restrict any use of the information to criminally investigate or prosecute any alcohol or drug abuse patient.[facility] CenterIn the event this information is protected by the Federal Confidentiality of Alcohol and Drug Abuse Patient Records regulations: The Federal rules restrict any use of the information to criminally investigate or prosecute any alcohol or drug abuse patient.[facility] CenterIn the event this information is protected by the Federal Confidentiality of Alcohol and Drug Abuse Patient Records regulations: The Federal rules restrict any use of the information to criminally investigate or prosecute any alcohol or drug abuse patient.[facility] CenterIn the event this information is protected by the Federal Confidentiality of Alcohol and Drug Abuse Patient Records regulations: The Federal rules restrict any use of the information to criminally investigate or prosecute any alcohol or drug abuse patient.[facility] CenterIn the event this information is protected by the Federal Confidentiality of Alcohol and Drug Abuse Patient Records regulations: The Federal rules restrict any use of the information to criminally investigate or prosecute any alcohol or drug abuse patient.[facility] CenterIn the event this information is protected by the Federal Confidentiality of Alcohol and Drug Abuse Patient Records regulations: The Federal rules restrict any use of the information to criminally investigate or prosecute any alcohol or drug abuse patient.[facility] CenterIn the event this information is protected by the Federal Confidentiality of Alcohol and Drug Abuse Patient Records regulations: The Federal rules restrict any use of the information to criminally investigate or prosecute any alcohol or drug abuse patient.[facility] CenterIn the event this information is protected by the Federal Confidentiality of Alcohol and Drug Abuse Patient Records regulations: The Federal rules restrict any use of the information to criminally investigate or prosecute any alcohol or drug abuse patient.[facility] the event this information is protected by the Federal Confidentiality of Alcohol and Drug Abuse Patient Records regulations: The Federal rules restrict any use of the information to criminally investigate or prosecute any alcohol or drug abuse patient.[facility] CenterIn the event this information is protected by the Federal Confidentiality of Alcohol and Drug Abuse Patient Records regulations: The Federal rules restrict any use of the information to criminally investigate or prosecute any alcohol or drug abuse patient.[facility] CenterIn the event this information is protected by [...] or prosecute any alcohol or drug abuse patient.[facility] CenterIn the event this information is protected by the Federal Confidentiality of Alcohol and Drug Abuse Patient Records regulations: The Federal rules restrict any use of the information to criminally investigate or prosecute any alcohol or drug abuse patient.[facility] CenterIn the event this information is protected by the Federal Confidentiality of Alcohol and Drug Abuse Patient Records regulations: The Federal rules restrict any use of the information to criminally investigate or prosecute any alcohol or drug abuse patient.[facility] CenterIn the event this information is protected by the Federal Confidentiality of Alcohol and Drug Abuse Patient Records regulations: The Federal rules restrict any use of the information to criminally investigate or prosecute any alcohol or drug abuse patient.[facility] CenterIn the event this information is protected by the Federal Confidentiality of Alcohol and Drug Abuse Patient Records regulations: The Federal rules restrict any use of the information to criminally investigate or prosecute any alcohol or drug abuse patient.[facility] CenterIn the event this information is protected by the Federal Confidentiality of Alcohol and Drug Abuse Patient Records regulations: The Federal rules restrict any use of the information to criminally investigate or prosecute any alcohol or drug abuse patient.[facility] CenterIn the event this information is protected by the Federal Confidentiality of Alcohol and Drug Abuse Patient Records regulations: The Federal rules restrict any use of the information to criminally investigate or prosecute any alcohol or drug abuse patient.[facility] CenterIn the event this information is protected by the Federal Confidentiality of Alcohol and Drug Abuse Patient Records regulations: The Federal rules restrict any use of the information to criminally investigate or prosecute any alcohol or drug abuse patient.[facility] CenterIn the event this information is protected by the Federal Confidentiality of Alcohol and Drug Abuse Patient Records regulations: The Federal rules restrict any use of the information to criminally investigate or prosecute any alcohol or drug abuse patient.[facility] CenterIn the event this information is protected by the Federal Confidentiality of Alcohol and Drug Abuse Patient Records regulations: The Federal rules restrict any use of the information to criminally investigate or prosecute any alcohol or drug abuse patient.[facility] CenterIn the event this information is protected by the Federal Confidentiality of Alcohol and Drug Abuse Patient Records regulations: The Federal rules restrict any use of the information to criminally investigate or prosecute any alcohol or drug abuse patient.[facility] CenterIn the event this information is protected by the Federal Confidentiality of Alcohol and Drug Abuse Patient Records regulations: The Federal rules restrict any use of the information to criminally investigate or prosecute any alcohol or drug abuse patient.[facility] CenterIn the event this information is protected by the Federal Confidentiality of Alcohol and Drug Abuse Patient Records regulations: The Federal rules restrict any use of the information to criminally investigate or prosecute any alcohol or drug abuse patient.[facility] CenterIn the event this information is protected by the Federal Confidentiality of Alcohol and Drug Abuse Patient Records regulations: The Federal rules restrict any use of the information to criminally investigate or prosecute any alcohol or drug abuse patient.[facility] CenterIn the event this information is protected by the Federal Confidentiality of Alcohol and Drug Abuse Patient Records regulations: The Federal rules restrict any use of the information to criminally investigate or prosecute any alcohol or drug abuse patient.[facility] CenterIn the event this information is protected by the Federal Confidentiality of Alcohol and Drug Abuse Patient Records regulations: The Federal rules restrict any use of the information to criminally investigate or prosecute any alcohol or drug abuse patient.[facility] CenterIn the event this information is protected by the Federal Confidentiality of Alcohol and Drug Abuse Patient Records regulations: The Federal rules restrict any use of the information to criminally investigate or prosecute any alcohol or drug abuse patient.[facility] CenterIn the event this information is protected by the Federal Confidentiality of Alcohol and Drug Abuse Patient Records regulations: The Federal rules restrict any use of the information to criminally investigate or prosecute any alcohol or drug abuse patient.[facility] CenterIn the event this information is protected by the Federal Confidentiality of Alcohol and Drug Abuse Patient Records regulations: The Federal rules restrict any use of the information to criminally investigate or prosecute any alcohol or drug abuse patient.[facility] CenterIn the event this information is protected by the Federal Confidentiality of Alcohol and Drug Abuse Patient Records regulations: The Federal rules restrict any use of the information to criminally investigate or prosecute any alcohol or drug abuse patient.[facility] CenterIn the event this information is protected by the Federal Confidentiality of Alcohol and Drug Abuse Patient Records regulations: The Federal rules restrict any use of the information to criminally investigate or prosecute any alcohol or drug abuse patient.[facility] CenterIn the event this information is protected by the Federal Confidentiality of Alcohol and Drug Abuse Patient Records regulations: The Federal rules restrict any use of the information to criminally investigate or prosecute any alcohol or drug abuse patient.[facility] CenterIn the event this information is protected by the Federal Confidentiality of Alcohol and Drug Abuse Patient Records regulations: The Federal rules restrict any use of the information to criminally investigate or prosecute any alcohol or drug abuse patient.[facility] CenterIn the event this information is protected by the Federal Confidentiality of Alcohol and Drug Abuse Patient Records regulations: The Federal rules restrict any use of the information to criminally investigate or prosecute any alcohol or drug abuse patient.[facility] CenterIn the event this information is protected by the Federal Confidentiality of Alcohol and Drug Abuse Patient Records regulations: The Federal rules restrict any use of the information to criminally investigate or prosecute any alcohol or drug abuse patient.[facility] CenterIn the event this information is protected by the Federal Confidentiality of Alcohol and Drug Abuse Patient Records regulations: The Federal rules restrict any use of the information to criminally investigate or prosecute any alcohol or drug abuse patient.[facility] CenterIn the event this information is protected by the Federal Confidentiality of Alcohol and Drug Abuse Patient Records regulations: The Federal rules restrict any use of the information to criminally investigate or prosecute any alcohol or drug abuse patient.[facility] CenterIn the event this information is protected by the Federal Confidentiality of Alcohol and Drug Abuse Patient Records regulations: The Federal rules restrict any use of the information to criminally investigate or prosecute any alcohol or drug abuse patient.[facility] CenterIn the event this information is protected by the Federal Confidentiality of Alcohol and Drug Abuse Patient Records regulations: The Federal rules restrict any use of the information to criminally investigate or prosecute any alcohol or drug abuse patient.[facility] CenterIn the event this information is protected by the Federal Confidentiality of Alcohol and Drug Abuse Patient Records regulations: The Federal rules restrict any use of the information to criminally investigate or prosecute any alcohol or drug abuse patient.[facility] Reason for Visit (unrecogniz ed section and content) Reason Comments Results Reason Comments urine culture Reason Onset Date Comments Refill Request 11/28/2021 Reason Comments Follow Up Specialty Diagnoses / Procedures Referred By Contgold t Referred To Contact Family Practice / FAMILY MEDICINE Diagnoses 4 month f/u Procedures 4C EST Kristen Eugene PA-C [address] [place] [address] Carl Encarnacion MD [address] [place] [address] Referral ID Status Reason Start Date Expiration Date V isits Requested Visits Authorized [id number] New Request 12/12/2021 03/12/2022 1 1 Reason [...] EA 15 MIN. Kristen Eugene PA-C [address] [place] [address] [facility] [address] [place] [address] Referral ID Status Reason Start Date Expiration Date Visits Requested Visits Authorized [id number] Authorized Auto-Generat ed Referral 08/09/2022 08/08/2023 20 20 Reason Onset Date Comments Refill Request 02/08/2023 Reason Comments Referral Information Reason Comments Pre op instructions Reason Comments Results Reason Comments Appointment Reason Comments Patient Update Reason Comments Anesthesia Consult Preop evaluation Reason Comments home health calling Reason Comments Post Op Reason Comments Nursing Plan of Care Reason Comments Fiber Optic Technician - Other Introduction Reason Comments New Patient Specialty Diagnoses / Procedures Referred By Contac t Referred To Contact Diagnoses 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 (HCC) Procedures CONSULT TO HEMATOLOGY/ONCOLOGY OFFICE/OUTPATIENT NEW HIGH MDM 60-74 MINUTES Annmarie Mendoza, SENIOR ORACLE APPLICATIONS DEVELOPER.ASSISTANT ENGINEER [address] [place] [address] Wilmar Forbes, [address] [place] [address] Referral ID Status Reason Start Date Expiration Date Visits Requested Visits Authorized [id number] Pending Review PCP Requested Referral 05/03/2023 05/02/2024 1 1 Reason Comments First Time Treatment Education Carboplat in Reason Comments AVS 06/02/23, CHEMO START Reason Onset Date Comments Refill Request 06/07/2023 Reason Comments Fiber Optic Technician - Other Orders Reason Comments Fiber Optic Technician - Other C1D1 Post Treat ment Call (Carboplatin) Reason Comments Medication Problem Reason Comments Radiology CT Specialty Diagnoses / Procedures Referred By Contac t Referred To Contact CT IMAGING Diagnoses Pelvic mass Procedures CT ABD/PEL W IVCON CT ABD & PELVIS [place] [address] [place] [address] [address] [place] [address] Referral ID Status Reason Start Date Expiration Date V isits Requested Visits Authorized [id number] Closed Auto-Generate d Referral 02/26/2023 03/27/2024 1 1 Reason Comments Fiber Optic Technician - Other Toxicity Check (Carboplatin) Reason Comments Established Patient Reason Onset Date Comments Refill Request 10/07/2023 Reason Comments Hospital Admission Reason Onset Date Comments Refill Request 12/06/2023 Reason Comments [facility]-verbal ordes requeted Reason Comments ER F/U Seen 11/22 at [facility] for fall at home and admitted for Rhabdomyolysis Reason Comments Patient Update from PT [facility] Reason Comments Ext / Discharge Summary Reason Onset Date Comments Refill Request 01/04/2024 Reason Comments OT Update Reason Comments Outside Heart Cath Reason Onset Date Comments Refill Request 02/15/2024 Care Teams (unrecognized sec tion and content) Grease Maker Head Relationship Specialty Start Date End Date Carl Encarnacion MD [address] [place], [place] [id number] PCP - General Family Practice 03/12/15 Grease Maker Head Relationship Specialty Start Date End Date Carl Encarnacion MD [address] [place], [place] [id number] PCP - General Family Practice 03/12/15 Grease Maker Head Relationship Specialty Start Date End Date Carl Encarnacion MD [address] [place] [address] PCP - General Family Practice 03/12/15 Grease Maker Head Relationship Specialty Start Date End Date Carl Encarnacion MD [facility] [place] [address] PCP - General Family Practice 03/12/15 Grease Maker Head Relationship Specialty Start Date End Date Carl Encarnacion MD [address] [place] [address], [place] [address] PCP - General Family Practice 03/12/15 Grease Maker Head Relationship Specialty Start Date End Date Carl Encarnacion MD [address] [place] [address], [place] [address] PCP - General Family Medicine 03/12/15 Grease Maker Head Relationship Specialty Start Date End Date Carl Encarnacion MD [address] [place] [address], [place] [address] PCP - General Family Medicine 03/12/15 Grease Maker Head Relationship Specialty Start Date End Date Carl Encarnacion MD [address] [place] [address], [place] [address] PCP - General Family Medicine 03/12/15 Grease Maker Head Relationship Specialty Start Date End Date Carl Encarnacion MD [address] [place] [address] [place] [address] PCP - General Family Medicine 03/12/15 Grease Maker Head Relationship Specialty Start Date End Date Carl Encarnacion MD [address] [place] [address], [place] [address] PCP - General Family Medicine 03/12/15 Grease Maker Head Relationship Specialty Start Date End Date Carl Encarnacion MD [address] [place] [address], [place] [address] PCP - General Family Medicine 03/12/15 Grease Maker Head Relationship Specialty Start Date End Date Carl Encarnacion MD [address] [facility] [place] [address] PCP - General Family Medicine 03/12/15 Grease Maker Head Relationship Specialty Start Date End Date Carl Encarnacion MD 0 [facility] [place] [address] PCP - General Family Medicine 03/12/15 Grease Maker Head Relationship Specialty Start Date End Date Carl Encarnacion MD 0 [facility] [place] [address] PCP - General Family Medicine 03/12/15 Grease Maker Head Relationship Specialty Start Date End Date Carl Encarnacion MD 0 [facility] [place] [address] PCP - General Family Medicine 03/12/15 Team Status: Active Member Role Status Dates Raciel Zuleta Family Provider Active Dr. Carl Encarnacion MD Primary Care Provider Active Team Status: Inactive Member Role Status Dates Dr. Carl Encarnacion MD Primary Care Provider Active Dr. Abdiel Shaikh , DO Emergency Provider Active Grease Maker Head Relationship Specialty Start Date End Date Carl Encarnacion MD 0 [facility] [place] [address] PCP - General Family Medicine 03/12/15 Grease Maker Head Relationship Specialty Start Date End Date Carl Encarnacion MD 0 [facility] [place] [address] PCP - General Family Medicine 03/12/15 Grease Maker Head Relationship Specialty Start Date End Date Carl Encarnacion MD 0 [facility] [place] [address] PCP - General Family Medicine 03/12/15 Grease Maker Head Relationship Specialty Start Date End Date Carl Encarnacion MD 0 [facility] [place] [address] PCP - General Family Medicine 03/12/15 Grease Maker Head Relationship Specialty Start Date End Date Carl Encarnacion MD [address] [place] [address] PCP - General Family Medicine 03/12/15 Team Status: Inactive Member Role Status Dates Dr. Carl Encarnacion MD Primary Care Provider Active Dr. Abdiel Shaikh DO Attending Provider, Emergency P rovider Active Team Status: Inactive Member Role Status Dates Dr. Carl Encarnacion MD Primary Care Provider Active Dr. Carl Hawkins , Attending Provider, Referring P rovider Active Grease Maker Head Relationship Specialty Start Date End Date Carl Encarnacion MD [address] [place] [address] PCP - General Family Medicine 03/12/15 Grease Maker Head Relationship Specialty Start Date End Date Carl Encarnacion MD [address] [place] [address] PCP - General Family Medicine 03/12/15 Grease Maker Head Relationship Specialty Start Date End Date Carl Encarnacion MD [address] [place] [address] PCP - General Family Medicine 03/12/15 Grease Maker Head Relationship Specialty Start Date End Date Carl Encarnacion MD [address] [place] [address] PCP - General Family Medicine 03/12/15 Grease Maker Head Relationship Specialty Start Date End Date Carl Encarnacion MD [address] [place] [address] PCP - General Family Medicine 03/12/15 Grease Maker Head Relationship Specialty Start Date End Date Carl Encarnacion MD [address] [place] [address] PCP - General Family Medicine 03/12/15 Grease Maker Head Relationship Specialty Start Date End Date Carl Encarnacion MD [address] [place] [address] PCP - General Family Medicine 03/12/15 Grease Maker Head Relationship Specialty Start Date End Date Carl Encarnacion MD [address] [place] [address] PCP - General Family Medicine 03/12/15 Grease Maker Head Relationship Specialty Start Date End Date Carl Encarnacion MD [address] [place] [address] PCP - General Family Medicine 03/12/15 Grease Maker Head Relationship Specialty Start Date End Date Carl Encarnacion MD [address] [place] [address] PCP - General Family Medicine 03/12/15 Grease Maker Head Relationship Specialty Start Date End Date Carl Encarnacion MD [address] [place] [address] PCP - General Family Medicine 03/12/15 Grease Maker Head Relationship Specialty Start Date End Date Carl Encarnacion MD [address] [place] [address] PCP - General Family Medicine 03/12/15 Grease Maker Head Relationship Specialty Start Date End Date Carl Encarnacion MD [address] [place] [address] PCP - General Family Medicine 03/12/15 Grease Maker Head Relationship Specialty Start Date End Date Carl Encarnacion MD [address] [place] [address] PCP - General Family Medicine 03/12/15 Grease Maker Head Relationship Specialty Start Date End Date Carl Encarnacion MD [address] [facility] [place] [address] PCP - General Family Medicine 03/12/15 Grease Maker Head Relationship Specialty Start Date End Date Carl Encarnacion MD [address] [facility] [place] [address] PCP - General Family Medicine 03/12/15 Korin Mantilla RN Specialty Fiber Optic Technician Oncology 06/07/23 Wilmar Forbes DO [address] [place] [address] Hematology/Oncology 06/07/23 Grease Maker Head Relationship Specialty Start Date End Date Carl Encarnacion MD [address] [facility] [place] [address] PCP - General Family Medicine 03/12/15 Korin Mantilla RN Specialty Fiber Optic Technician Oncology 06/07/23 Wilmar Forbes DO [address] [place] [address] Hematology/Oncology 06/07/23 Grease Maker Head Relationship Specialty Start Date End Date Carl Encarnacion MD 0 [facility] [place] [address] PCP - General Family Medicine 03/12/15 Korin Mantilla RN Specialty Fiber Optic Technician Oncology 06/07/23 Wilmar Forbes DO [address] [place] [address] Hematology/Oncology 06/07/23 Grease Maker Head Relationship Specialty Start Date End Date Carl Encarnacion MD [address] [place] [address] PCP - General Family Medicine 03/12/15 Korin Mantilla RN Specialty Fiber Optic Technician Oncology 06/07/23 Wilmar Forbes DO [address] [place] [address] Hematology/Oncology 06/07/23 Grease Maker Head Relationship Specialty Start Date End Date Carl Ecnarnacion MD [address] [place] [address] PCP - General Family Medicine 03/12/15 Grease Maker Head Relationship Specialty Start Date End Date Carl Encarnacion MD [address] [place] [address] PCP - General Family Medicine 03/12/15 Grease Maker Head Relationship Specialty Start Date End Date Carl Encarnacion MD [address] [place] [address] PCP - General Family Medicine 03/12/15 Grease Maker Head Relationship Specialty Start Date End Date Carl Encarnacion MD [address] [place] [address] PCP - General Family Medicine 03/12/15 Korin Mantilla RN Specialty Fiber Optic Technician Oncology 06/07/23 Wilmar Forbes DO [address] [place] [address] Hematology/Oncology 06/07/23 Grease Maker Head Relationship Specialty Start Date End Date Carl Encarnacion MD [address] [place] [address] PCP - General Family Medicine 03/12/15 Korin Mantilla RN Specialty Fiber Optic Technician Oncology 06/07/23 Wilmar Forbes DO [address] [place] [address] Hematology/Oncology 06/07/23 Grease Maker Head Relationship Specialty Start Date End Date Carl Encarnacion MD [address] [facility] [place] [address] PCP - General Family Medicine 03/12/15 Korin Mantilla RN Specialty Fiber Optic Technician Oncology 06/07/23 Wilmar Forbes DO [address] [place] [address] Hematology/Oncology 06/07/23 Grease Maker Head Relationship Specialty Start Date End Date Carl Encarnacion MD [address] [facility] [place] [address] PCP - General Family Medicine 03/12/15 Korin Mantilla RN Specialty Fiber Optic Technician Oncology 06/07/23 Wilmar Forbes DO [address] [place] [address] Hematology/Oncology 06/07/23 Grease Maker Head Relationship Specialty Start Date End Date Carl Encarnacion MD [address] [facility] [place] [address] PCP - General Family Medicine 03/12/15 Korin Mantilla RN Specialty Fiber Optic Technician Oncology 06/07/23 Wilmar Forbes DO [address] [place] [address] Hematology/Oncology 06/07/23 Team Status: Active Member Role Status Dates Dr. Carl Encarnacion MD Primary Care Provider Active Dr. Smith Ho MD Emergency Provider Active Dr. Kelby Aguilar DO Admit Provider, Attending Provider Active Grease Maker Head Relationship Specialty Start Date End Date Carl Encarnacion MD [address] [facility] [place] [address] PCP - General Family Medicine 03/12/15 Korin Mantilla RN Specialty Fiber Optic Technician Oncology 06/07/23 Wilmar Forbes DO [address] [place] [address] Hematology/Oncology 06/07/23 Team Status: Active Member Role [...] Aguilar DO Admit Provider, Attending Provider Active Grease Maker Head Relationship Specialty Start Date End Date Carl Encarnacion MD [address] [place] [address] PCP - General Family Medicine 03/12/15 Korin Mantilla RN Specialty Fiber Optic Technician Oncology 06/07/23 Wilmar Forbes DO [address] [place] [address] Hematology/Oncology 06/07/23 Grease Maker Head Relationship Specialty Start Date End Date Carl Encarnacion MD [address] [place] [address] PCP - General Family Medicine 03/12/15 Korin Mantilla RN Specialty Fiber Optic Technician Oncology 06/07/23 Wilmar Forbes DO [address] [place] [address] Hematology/Oncology 06/07/23 Grease Maker Head Relationship Specialty Start Date End Date Carl Encarnacion MD [address] [facility] [place] [address] PCP - General Family Medicine 03/12/15 Korin Mantilla RN Specialty Fiber Optic Technician Oncology 06/07/23 Wilmar Forbes DO [address] [place] [address] Hematology/Oncology 06/07/23 Grease Maker Head Relationship Specialty Start Date End Date Carl Encarnacion MD [address] [facility] [place] [address] PCP - General Family Medicine 03/12/15 Korin Mantilla RN Specialty Fiber Optic Technician Oncology 06/07/23 Wilmar Forbes DO [address] [place] [address] Hematology/Oncology 06/07/23 Grease Maker Head Relationship Specialty Start Date End Date Carl Encarnacion MD [address] [facility] [place] [address] PCP - General Family Medicine 03/12/15 Team Status: Active Member Role Status Dates Dr. Carl Encarnacion MD Primary Care Provider Active Start: August 07, 2024 Lasha VASQUEZ MD Attending Provider Active Start: August 07, 2024 Team Status: Inactive Member Role Status Dates Dr. Carl Encarnacion MD Primary Care Provider Active Start: August 11, 2024 End: August 11, 2024 Savi Tavares PLASTICS TOOLING ENGINEER, PLASTICS TOOLING ENGINEER-C Attending Provider Active Start: August 11, 2024 [...] End: September 27, 2024 Savi Tavares NP, PLASTICS TOOLING ENGINEER-C Attending Provider Active Start: September 27, 2024 [...] 16, 2024 End: October 16, 2024 Lasha VASQUEZ MD Attending Provider Active Start: October 16, [...] section and content) DATE CREATED AUTHOR 03/25/2023 [facility] DATE CREATED AUTHOR AUTHOR'S ORGANIZ ATION 01/22/2024 [facility] DATE CREATED AUTHOR AUTHOR'S ORGANIZ ATION 03/27/2024 [facility] DATE CREATED AUTHOR AUTHOR'S ORGANIZ ATION 04/06/2024 [facility] [place] DATE CREATED AUTHOR AUTHOR'S ORGANIZ ATION 08/21/2024 [facility] DATE CREATED AUTHOR AUTHOR'S ORGANIZ ATION 01/04/2025 [facility] FOR RECORDS PERTAINING TO PATIENTS WHO ARE [...] BE BASED ON THE PRIMARY CLINICAL RECORDS. [facility] provides no warranty or guarantee of the accuracy or completeness of information in this document.
[2025-01-18 07:15] LABS: Ammonia 26.9 umol/L (11-51)
[2025-01-18 08:08] LABS: Absolute Lymphocyte Count 1.31 X10^3/uL (0.83-4.51); Absolute Neutrophil Count 3.4 X10^3/uL (2.0-7.7); Basophil# 0.04 X10^3/uL; Basophil% 0.8 % (0-1); Eosinophil# 0.05 X10^3/uL; Hematocrit 41.5 % (37-47); Hemoglobin 13.2 g/dL (12.0-15.0); Lymphocyte # 1.31 X10^3/ul (0.83-4.51); Lymphocyte % 25.1 % (19-41); Mean Corp Hgb Conc 31.8 g/dL (32-36); Mean Corpuscular Hgb 32.6 pg (27.0-32.0); Mean Corpuscular Volume 102.5 fL (81-99); Mean Platelet Vol. 10.1 fl (6.2-12.0); Monocyte# 0.42 X10^3/uL; NRBC Flagged by Analyzer 0 % (0-5); Neutrophil # 3.39 X10^3/uL (2.7-7.7); Neutrophil % 64.9 % (47-70); Platelet Count 212 K/mm3 (150-450); RBC Distribution Width CV 13.4 % (11.6-14.6); Red Blood Count 4.05 M/mm3 (4.2-5.4); White Blood Count 5.2 K/mm3 (4.4-11.0)
[2025-01-18 08:29] LABS: ALB/GLOB Ratio 1.4 RATIO (0.9-2.4); AST(SGOT) 22 U/L (<=31); Alanine Aminotransfer ALT/SGPT 13 U/L (<=34); Albumin, Serum 4.3 g/dL (3.4-4.8); Alkaline Phosphatase 86 U/L (35-104); Anion Gap 14 (5-15); BUN 25 mg/dL (4-19); BUN/Creat Ratio 28.4 RATIO (10-20); Calcium,Total 9.5 mg/dL (7.6-11.0); Carbon Dioxide 23.1 mmol/L (21.0-32.0); Chloride 101 mmol/L (98-108); Creatinine, Serum 0.87 mg/dL (0.70-1.20); EST Glomerular Filtration Rate 65 (>60); Globulin 3.2 g/dL (2.2-4.2); Glucose 96 mg/dL (70-99); Potassium 4.7 mmol/L (3.3-5.1); Protein, Total 7.5 g/dL (5.9-8.4); Sodium Level 138 mmol/L (133-145); Total Bilirubin 0.68 mg/dL (0.00-1.30)
== END ==
LOC: OLS.WHLEAS 05:00
PROVIDERS: PCP Family Medicine; Visit Provider Internal Medicine
DX: G47.00 Insomnia, unspecified (principal); I11.9 Hypertensive heart disease without heart failure; I35.0 Nonrheumatic aortic (valve) stenosis; F03.90 Unspecified dementia, unspecified severity, without behavioral disturbance, psychotic disturbance, mood disturbance, and anxiety
CPT/HCPCS: 36415; 80053; 82140; 84443; 85025

== ENCOUNTER → 2025-01-22 | Outpatient (REF) | payer MEDICARE, MEDICAID, SELFPAY ==
--- OUTSIDE RECORDS SUMMARY | 2025-01-22 03:46 | XMS RPT_ITS | CCD ---
Author Organization [facility] Care Team Providers Care Data Programmer Name Role Phone Carl Encarnacion MD Primary Care Provider [phone] Carl Encarnacion MD Primary Care Provider [phone] Jose Rafael RN, Korin Unavailable Unavailable Wilmar Forbes DO Unavailable JAKE MOREJON, EKATERINA Rhodes Primary Care Physician [phone] Dr. Carl Encarnacion Primary Care Provider Dr. Smith Ho Emergency Provider Dr. Kelby Aguilar Admit Provider Dr. Kelby Aguilar Attending Provider Dr. Kelby Aguilar Other Provider Carl Encarnacion MD Primary Care Provider DARCI MSN, PICKING CREW SUPERVISOR, [facility] Primary Care Physici an Carl Encarnacion MD Primary Care Provider [phone] ELIOT CASTILLO Admitting Unavailable CARL ENCARNACION Primary [...] Care Unavailable ALEJANDRA, CARL A Attending Unavailable CHATA EUGENEE Referring Unavailable ALEJANDRA, CARL A Primary [...] USMAN Jorge Admitting Unavail able SUPPAN MSN, PICKING CREW SUPERVISOR, ESTER Primary Care Unav ailable PLUNK DO, ANNELIESE Attending Unavailable AMADEO MOREJON FACP, USMAN Jorge Admitting Unavail able SUPPAN MSN, PICKING CREW SUPERVISOR, ESTER Primary Care Unav ailable PLUNK DO, ANNELIESE Attending Unavailable CARL ENCARNACION MD Attending Unavailable SUPPAN MSN, PICKING CREW SUPERVISOR, ESTER Primary Care Unav ailable PLUNK DOANNELIESE Admitting Unavailable SUPPAN MSN, PICKING CREW SUPERVISOR, ESTER Primary Care Unav ailable ESTELA VICENTE MD, DR LINDA HONEYCUTT Consulting Unavaila addison PHIPPS MD, DRE Attending Unavailable SANDHYA MOREJON, CANDIDA Consulting Unavailable NUHA MOREJON, DR MARION Consulting Donaldo DANG MD, CIPRIANO Consulting Unavailable ASHOK WALLER MD, DR RAYMUNDO Attending UnaMINISTERIO Hoang MD Primary Care Unavailable ASHOK WALLER MD, DR RAYMUNDO Attending Unav EKATERINA Moreira MD Primary Care Unavailable GLADYS FERNANDEZ-KACI, STEFANO L Admitting Donaldo BEJARANO MSN, PICKING CREW SUPERVISOR, [facility] Care Unav ailable ANNELIESE CHAIREZ DO Attending Unavailable ASHOK WALLER MD, DR RAYMUNDO Attending Unav ailable DARCI MSN, PICKING CREW SUPERVISOR, [facility] Care Unav wayne [facility] Lasha Pro MD Attending Provider Unavaildavid Tavares SUPERVISOR [place]-CSavi Attending Provider Lasha Pro MD Referring Provider Unavaildavid Pro MD, Dr. Colby Attending Provider Jim Valentin Attending Provider [phone] Morteza VASQUEZ Efcachorroongbe Attending Unavailabl e Alejandra, Kelly Primary Care Unavailable [facility], Kelly Primary Care Unavailable Oleghe OLS Efewongbe Attending Unavailabl e Oleghe OLS, Efewongbe Attending Unavailabl e Alejandra, Kelly Primary Care Unavailable Oleghe OLS, Efewongbe Attending Unavailabl e Alejandra, Kelly Primary Care Unavailable Oleghe OLS, Efewongbe Referring Unavailabl e Oleghe OLS, Efewongbe Attending Unavailabl e Alejandra, Kelly Primary Care Unavailable Oleghe OLS, Efewongbe Referring Unavailabl e Oleghe OLS, Efewongbe Attending Unavailabl e Alejandra, Kelly Primary Care Unavailable Olee OLS, Efewongbe Attending Unavailabl e Alejandra, Kelly Primary Care Unavailable Oleghe OLS, Efewongbe Attending Unavailabl e Alejandra, Kelly Primary Care Unavailable Oleghe OLS, Efewongbe Attending Unavailabl e Alejandra, Kelly Primary Care Unavailable Oleghe OLS, Efewongbe Attending Unavailabl e Alejandra, Kelly Primary Care Unavailable Oleghe OLS, Efewongbe Attending Unavailabl e Alejandra, Kelly Primary Care Unavailable [facility], Kelly Primary Care Unavailable Oleghe OLS, Efewongbe Attending Unavailabl e Oleghe OLS, Efewongbe Attending Unavailabl e Alejandra, Kelly Primary Care Unavailable Oleghe OLS, Efewongbe Attending Unavailabl e Alejandra, Kelly Primary Care Unavailable Oleghe OLS, Efewongbe Attending Unavailabl e Alejandra, Cral Primary Care Unavailable Oleghe OLS, Efewongbe Referring Unavailabl e Oleghe OLS, Efewongbe Attending Unavailabl e Alejandra, Carl Primary Care Unavailable Oleghe OLS, Efewongbe Attending Unavailabl e Alejandra, Carl Primary Care Unavailable Alejandra, Carl Primary Care Unavailable Oleghe OLS, Efewongbe Attending Unavailabl e Alejandra, Carl Primary Care Unavailable Oleghe OLS, Efewongbe Attending Unavailabl e Alejandra, Carl Primary Care Unavailable Oleghe OLS, Efewongbe Attending Unavailabl e Oleghe OLS, Efewongbe Attending Unavailabl e Alejandra, Carl Primary Care Unavailable Oleghe OLS, Efewongbe Attending Unavailabl e Alejandra, Carl Primary Care Unavailable Anusha SUPERVISOR [place], Savi Attending Unavailable Alejandra, Carl Primary Care Unavailable Oleghe OLS, Efewongbe Attending Unavailabl e Alejandra, Carl Primary Care Unavailable Juan Rton SUPERVISOR [place], Savi Attending Unavailable Alejandra, Carl Primary Care Unavailable Anusha SUPERVISOR [place], Savi Attending Unavailable Alejandra, Carl Primary Care Unavailable Sujata Mejia Attending Unavailable Alejandra, Carl Primary Care Unavailable Anusha SUPERVISOR [place], Savi Attending Unavailable Alejandra, Carl Primary Care Unavailable Oleghe, Efewongbe Attending Unavailable Alejandra, Carl Primary Care Unavailable Jim Valentin Attending Unavailable Alejandra, Carl Primary Care Unavailable Alejandra, Carl Primary Care Unavailable Oleghe, Efewongbe Attending Unavailable Alejandra, Carl Primary Care Unavailable Anusha SUPERVISOR [place], Savi Attending Unavailable Alejandra, Carl Primary Care Unavailable Oleghe, Efewongbe Attending Unavailable Anusha SUPERVISOR SPRING UPSavi Attending Unavailable Alejandra, Carl Primary Care Unavailable Anusha SUPERVISOR [place], Savi Attending Unavailable Alejandra, Carl Primary Care Unavailable Oleghe, Efewongbe Attending Unavailable Alejandra, Carl Primary Care Unavailable Hector Anderson Attending Unavailable Alejandra, Carl Primary Care Unavailable Ronen Espinoza Attending Unavailable Alejandra, Carl Referring Unavailable Alejandra, Carl Primary Care Unavailable Jim Valentin Attending Unavailable Alejandra, Carl Primary Care Unavailable Oleghe, Efewongbe Attending Unavailable Alejandra, Carl Primary Care Unavailable Tickton SUPERVISOR [place], Savi Attending Unavailable Alejandra, Carl Primary Care Unavailable Oleghe OLS, Efewongbe Attending Unavailleandro Encarnacion [facility] Unavailable Morteza VASQUEZ, Efewongbe Attending [facility], [facility] Unavailable Morteza VASQUEZ, Tenzinongbe Attending Unavailabl manjula Encarnacion, [facility] Unavailable Morteza VASQUEZ, Tenzinongbe Attending Unavailleandro Encarnacion, [facility] Unavailable Morteza VASQUEZ, Tenzinongbe Referring Unavailabl e Marinae CHRISTINA, Efcachorroongbe Attending Unavailleandro Encarnacion, [facility] Unavailable Morteza VASQUEZ, Tenzinongbe Attending [facility], [facility] Unavailable Allergies Allergy Classification Reported Allergen(s) Allergy Type Date of Onset Reaction(s) Facility NITROFURANTOIN, MACROCRYSTALS / Nitrofurantoin, Monohydrate (4 sources) NITROFURANTOIN, MACROCRYSTALS / Nitrofurantoin, Monohydrate; Translations: [nitrofurantoin] Drug Allergy 3 GI Upset, Upset stomach (finding) [facility] Work Phone: (20 sources) NITROFURANTOIN, MACROCRYSTALS / Nitrofurantoin, Monohydrate; Translations: [nitrofurantoin] Drug Allergy 3 GI Upset, Upset stomach (finding) [facility] Work Phone: (3 sources) Ciprofloxacin Drug Allergy 4 nausea and "felt loopy" [facility] (3 sources) Nitrofurantoin Drug Allergy 4 Vomiting [facility] Comment on above: GI upset, nausea, vo miting and diarrhea. (1 source) Ciprofloxacin Drug Allergy 5 [facility] Repository (1 source) Nitrofurantoin Drug Allergy 5 [facility] Repository Medications Current Medications Medication Drug Class(es) [...] injection (1 source) Penicillin-class Antibacterial Start: 02-14-20 24 ampicillin 2 g IVPB injection IV Piggyback, [...] 3.125 mg oral tablet (8 sources) alpha-Adrenergic Sally, beta-Adrenergic Sally Start: 01-22-20 take 1 tablet by mouth [...] 500 mg PO EVERY 8 HOURS 0 November 26, 2023 12:00am January 20, 2024 [...] above: Take 1 capsule by mo uth twice daily as needed. 0.4 ml enoxaparin [...] Ordered Start: 05-09-2021 take 1 tablet by xuan th once daily Multivitamin Active 1 TABLET PO [...] Comment on above: Take 1 capsule by [facility] twice daily with meals for 7 days. omeprazole 20 mg delayed release oral capsule (20 sources) Proton Pump Inhibitor Start: 07-15-2020 End: 02-08-2023 take 1 capsule by mouth once daily Omeprazole 20 mg Capsule,Delayed Release(Dr/Ec) Active 20 mg PO DAILY May 09, 2021 12:00am Comment on above: Take 1 capsule by [facility] once daily. perflutren lipid microspheres 1.3 [...] Comment on above: Take 1 tablet by [facility] twice daily. predniSONE 10 mg oral tablet [...] with food. Take 2 tablets by mo [facility] once daily for 5 days. Take [...] xuan th every 6 hours as needed. Take 1 tablet by xuan th every 6 hours as needed (For chemotherapy induced nausea and vomiting). sennosides, penitentiary 8.6 mg oral tablet (1 source) Start: [...] by xuan twice daily for 7 days. THERAPEUTIC MULTIVITAMIN TAB (20 sources) Start: 01-31-2008 take 1 tablet by mouth once daily THERAPEUTIC MULTIVITAMIN TAB Take 1 tablet by mouth once daily. 0 01/31/2008 Active Start: 01-31-2008 THERAPEUTIC MU LTIVITAMIN TAB daily 0 01/31/2008 Suspended Start: 01-31-2008 THERAPEUTIC MU LTIVITAMIN TAB daily 0 01/31/2008 Active Comment on above: daily Take 1 tablet by xuan once daily. traMADol hydrochloride 50 mg oral [...] arthritis pain. Take 1 tablet by xuan th two times a day for 90 days. [...] Comment on above: Take 1,000 mcg by mo [facility] once daily. Vitamin D3 (1 [...] Take 1 tablet by xuan th twice daily. aspirin 81 mg chewable tablet [...] 25 mg oral tablet (7 sources) beta-Adrenergic Sally Start: 05-09-20 End: 06-05-20 take 1 tablet [...] Comment on above: Take 1 tablet by [facility] as directed. Take 2 tablets at 3pm [...] xuan th twice daily for 7 days. Glucosamine Hcl-Vitamin [...] Take 1 tablet by xuan twice daily as needed. NIFEdipine (20 sources) Dihydropyridine Calcium Channel Sally Start: 12-11-2023 End: 12-11-2023 Procardia XL Start: [...] 6 hours as needed. 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 Carl Encarnacion MD Status: DEP AMB Study: HIP, UNI W/ Pelvis 2-3 Views Date of Exam: Exam# [id number] Ordering Dr: Ronen Espinoza DO PROCEDURE: HIP, [...] Mild arthritic changes are seen. Reading Location: [facility] CC: Dr. Carl Encarnacion MD; Dr. Ronen Espinoza DO Drop Machine Operator: Signed Normal [facility] Orthopedic Visit Reporton Orthopedic Visit Report [facility] [address] [place] [address] [address] [place] [address] OFFICE VISIT Date of Service: 12/04/24 MR#: [id number] Acct: [id number] Name: STEFANO WASHINGTON Rep #: [id number] : 1940 Provider: Dr. Ronen winston DO Age/Sex: 84/F Location: [facility] [place] [facility].[place] Status: Signed Intake Vital Signs 03/14/24 14:51 12/04/24 15:30 Height 5 ft 5 ft Weight: 175 lb BMI 34.2 Intake Visit Reasons: RIGHT HIP Chief Complaint: Right hip Accompanied by: Daughter Is patient in pain?: Yes Pain scale (1-10): 10 Allergies nitrofurantoin (From Macrobid) Allergy (Mild, Verified 12/04/24 15:34) Vomiting ciprofloxacin Allergy (Unknown, Verified 12/04/24 15:34) nausea and "felt loopy" Medications ???Medication ???Instructions ???Recorded ???Confirmed ???Type calcium [...] stenosis UTI (urinary tract infection) Non-ST elevation [place] (NSTEMI) Hypertension Chronic pain Rheumatoid arthritis Former [...] year old F here today for right "hip" pain. Her pain is located over her [...] help with the flare. Patient is at [facility], they will fill that prescription for the Medrol Dosepak as directed (more content not included)... Normal [facility] Vitamin B12 ser/plasOrdered By: Lasha Pro on 11-02-2024 Cobalamin (Vitamin B12) [Mass/Vol] 412 pg/mL 180-914 [facility] Calculated very low density lipoprotein (VLDL) cholesterol measurementOrdered By: Lasha Pro on 10-30-2024 VLDL Cholesterol 23 mg/dL 5-40 [facility] LDL calc ser/plasOrdered By: Lasha Pro on 10-30-2024 LDL Cholesterol, Calculated 47 mg/dL [facility] Comment on above: Nkmwshzpzy=208-741 m g/dL & Higher Uvda=506 mg/dL or greater Screening total cholesterol/ high density lipoprotein (HDL) cholesterol ratioOrdered By: Lasha Pro on 10-30-2024 Cholesterol.total/Chol esterol in HDL [Mass ratio] 2.22 {ratio} [facility] Serum or plasma cholesterol in HDL measurement (mass/volume)Ordered By: Lasha Pro on 10-30-2024 Cholesterol in HDL [Mass/Vol] 58 mg/dL >40 [facility] Comment on above: National Cholesterol Education Program (NCEP) guidelines:<40 mg/dL: Low HDL-cholesterol (major risk factor for CHD)>= 60 mg/dL: High HDL-cholesterol (negative risk factor for CHD)HDL-cholesterol is affected by a number of factors, e.g. smoking, exercise, hormones, sex and age. Serum or plasma cholesterol measurement (mass/volume)Ordered By: Lasha Pro on 10-30-2024 Cholesterol [Mass/Vol] 129 mg/dL <201 [facility] Comment on above: Cholesterol level, D esirable <200 mg/dLBorderline high cholesterol 200-239 mg/dLHigh cholesterol >=240 mg/dLRecommendations of the NCEP Adult Treatment Panel for the following risk-cutoff thresholds for the [place] population. TSH DL <= 0.005 mIU/L QnOrde red By: Lasha Pro on 10-30-2024 Thyroid Stimulating Hormone (TSH) 0.870 uIU/mL 0.300-4.20 0 [facility] Triglycerides measurementOrd ered By: Lasha Pro on 10-30-2024 Triglyceride [Mass/Vol] 117 mg/dL <199 [facility] Comment on above: The drugs N-Acetylcy steine and Metamizole may falsely depress this assay. Normal range: <150 mg/dLBorderline High: 150-199 mg/dLHigh: 200-499 mg/dLVery High: >500 mg/dL Absolute neutrophil countOrd ered By: Lasha Pro on 10-16-2024 Neutrophils (Bld) [#/Vol] 1.4 10*3/uL Low 2.0-7.7 [facility] Anion gap in Serum or Plasma Ordered By: Lasha Pro on 10-16-2024 Anion gap [Moles/Vol] 13 mmol/L 5-15 [facility] BUN/creatinine ratioOrdered By: Lasha Pro on 10-16-2024 Urea nitrogen/Creatinine [Mass ratio] 22.3 mg/mg High 10-20 [facility] Basophil percentageOrdered B y: Lasha Pro on 10-16-2024 Basophils/100 WBC (Bld) 1.7 % High 0-1 [facility] Bilirubin directOrdered By: Lasha Pro on 10-16-2024 Bilirubin.direct [Mass/Vol] 0.20 mg/dL 0.00-0.30 [facility] Bilirubin, totalOrdered By: Lasha Pro on 10-16-2024 Bilirubin [Mass/Vol] 0.34 mg/dL 0.00-1.30 [facility] Carbon dioxide, total [Moles /volume] in Central venous bloodOrdered By: Lasha Pro on 10-16-2024 CO2 [Moles/Vol] 22.7 mmol/L 21.0-32.0 [facility] Chloride assayOrdered By: Brittany Pro on 10-16-2024 Chloride [Moles/Vol] 107 mmol/L 98-108 [facility] Eosinophil percentageOrdered By: Lasha Pro 10-16-2024 Eosinophils/100 WBC (Bld) 5.0 % 0-5 [facility] Erythrocyte distribution wid th (RBC) [Ratio]Ordered By: Lasha Pro on 10-16-2024 Erythrocyte distribution width (RBC) [Entitic vol] 52.4 fL High 35.1-43.9 [facility] Erythrocyte distribution wid th ratioOrdered By: Lasha Pro 10-16-2024 Erythrocyte distribution width (RBC) [Ratio] 13.8 % 11.6-14.6 [facility] GFR/1.73 sq M.predicted gianna g non-blacks MDRD (S/P/Bld) [Vol rate/Area]Ordered By: Lasha Pro on 10-16-2024 Estimated GFR (MDRD) Non-Af Amer 84 >60 [facility] Comment on above: mL/min/1.73m2 CKD-EP I Creatinine Equation (2020) Hematocrit Auto (Bld) [Volum e fraction]Ordered By: Lasha Pro on 10-16-2024 Hematocrit (Bld) [Volume fraction] 34.4 % Low 37-47 [facility] Hemoglobin measurementOrdere d By: Lasha Pro 10-16-2024 Hemoglobin (Bld) [Mass/Vol] 10.8 g/dL Low 12.0-15.0 [facility] Immature granulocytes/100 WB C Auto (Bld)Ordered By: Lasha Pro on 10-16-2024 Immature granulocytes/100 WBC (Bld) 0.300 % 0.0-0.9 [facility] Comment on above: IG% - Immature Granu locytes (promyelocytes, myelocytes and metamyelocytes) > 1% indicates that a LEFT SHIFT is Present. Laboratory - Chemistry and C hemistry - challengeOrdered By: Lasha Pro on 10-16-2024 AST [Catalytic activity/Vol] 17 U/L <32 [facility] Lymphocytes Auto (Unsp spec) [#/Vol]Ordered By: Lasha Pro on 10-16-2024 Lymphocytes (Bld) [#/Vol] 1.11 10*3/uL 0.83-4.51 [facility] Lymphocytes/100 WBC Auto (Un sp spec)Ordered By: Lasha Pro on 10-16-2024 Lymphocytes/100 WBC (Bld) 36.6 % 19-41 [facility] MCV (mean corpuscular volume ) determinationOrdered By: Lasha Pro on 10-16-2024 MCV (RBC) [Entitic vol] 102.7 fL High 81-99 [facility] Mean corpuscular hemoglobin (MCH) determinationOrdered By: Lasha Pro on 10-16-2024 MCH (RBC) [Entitic mass] 32.2 pg High 27.0-32.0 [facility] Mean corpuscular hemoglobin concentration (MCHC) determinationOrdered By: Lasha Pro on 10-16-2024 MCHC (RBC) [Mass/Vol] 31.4 g/dL Low 32-36 [facility] Mean platelet volume determi nationOrdered By: Lasha Pro on 10-16-2024 Platelet mean volume (Bld) [Entitic vol] 10.3 fL 6.2-12.0 [facility] Monocyte percentageOrdered B y: Lasha Pro on 10-16-2024 Monocytes/100 WBC (Bld) 11.9 % High 0-10 [facility] Neutrophil percentageOrdered By: Lasha Por on 10-16-2024 Neutrophils/100 WBC (Bld) 44.5 % Low 47-70 [facility] Nucleated red blood cell per centageOrdered By: Lasha Pro on 10-16-2024 Nucleated RBC/100 WBC (Bld) [Ratio] 0 % 0-5 [facility] Platelet countOrdered By: Brittany Pro on 10-16-2024 Platelets (Bld) [#/Vol] 162 10*3/uL 150-450 [facility] Potassium (Unsp spec) [Mass/ Vol]Ordered By: Lasha Pro on 10-16-2024 Potassium [Moles/Vol] 3.9 mmol/L 3.3-5.1 [facility] RBC Auto (Bld) [#/Vol]Ordere d By: Lasha Pro on 10-16-2024 RBC (Bld) [#/Vol] 3.35 10*6/uL Low 4.2-5.4 [facility] Serum creatinine measurement (mass/volume)Ordered By: Lasha Pro on 10-16-2024 Creatinine [Mass/Vol] 0.70 mg/dL 0.70-1.20 [facility] Serum globulin measurementOr dered By: Lasha Pro on 10-16-2024 Globulin (S) [Mass/Vol] 2.9 g/dL 2.2-4.2 [facility] Serum glucose measurement (m ass/volume)Ordered By: Lasha Pro on 10-16-2024 Glucose [Mass/Vol] 83 mg/dL 70-99 [facility] Serum or plasma alanine valdez otransferase (ALT) measurementOrdered By: Lasha Pro on 10-16-2024 ALT [Catalytic activity/Vol] 6 U/L <35 [facility] Serum or plasma albumin nina urement (mass/volume)Ordered By: Lasha Pro on 10-16-2024 Albumin [Mass/Vol] 3.6 g/dL 3.4-4.8 [facility] Serum or plasma albumin/glob ulin mass ratioOrdered By: Lasah Pro on 10-16-2024 Albumin/Globulin [Mass ratio] 1.2 {ratio} 0.9-2.4 [facility] Serum or plasma alkaline adelaide sphatase measurementOrdered By: Lasha Pro on 10-16-2024 ALP [Catalytic activity/Vol] 64 U/L 35-104 [facility] Serum or plasma calcium nina urement (mass/volume)Ordered By: Lasha Pro on 10-16-2024 Calcium [Mass/Vol] 8.9 mg/dL 7.6-11.0 [facility] Serum or plasma urea nitroge n measurement (mass/volume)Ordered By: Lasha Pro on 10-16-2024 Urea nitrogen [Mass/Vol] 16 mg/dL 4-19 [facility] Serum phosphorus measurement Ordered By: Lasha Pro on 10-16-2024 Phosphorus Level 3.2 mg/dL 2.7-4.5 [facility] Sodium levelOrdered By: Tenzin lesley Morteza on 10-16-2024 Sodium [Moles/Vol] 142 mmol/L 133-145 [facility] Total proteinOrdered By: Maikel moore Morteza on 10-16-2024 Protein [Mass/Vol] 6.5 g/dL 5.9-8.4 [facility] White blood cell (WBC) count Ordered By: Lasha Pro on 10-16-2024 WBC (Bld) [#/Vol] 3.0 10*3/uL Low 4.4-11.0 [facility] Bilirubin Test strip Ql (U)O rdered By: Savi Tavares on 09-27-2024 Bilirubin Ql (U) Negative Negative [facility] Glucose Ql (U)Ordered By: Angel Tavares on 09-27-2024 Urine Glucose (UA) Normal mg/dl Normal [facility] Ketones Test strip Ql (U)Ord ered By: Savi Tavarse on 09-27-2024 Ketones Ql (U) Negative Negative [facility] Nitrite Test strip Ql (U)Ord ered By: Savi Tavares on 09-27-2024 Nitrite Ql (U) Negative Negative [facility] Protein Test strip Ql (U)Ord ered By: Savi Tavares on 09-27-2024 Protein Ql (U) 30 mg/dl High Negative [facility] Urine blood detectionOrdered By: Savi Tavares on 09-27-2024 Urine Occult Blood 25 /ul High Negative [facility] Urine clarityOrdered By: Raheem Tavares on 09-27-2024 Clarity (U) Sl. Cloudy Clear [facility] Urine color determinationOrd ered By: Savi Tavares on 09-27-2024 Color (U) Yellow Yellow [facility] Urine cultureOrdered By: Maikel Pro on 09-27-2024 Bacteria identified Cx Nom (U) Culture exhibits no growth. [facility] Urine leukocyte esterase det ection by dipstickOrdered By: Savi Tavares on 09-27-2024 Leukocyte esterase Test strip Ql (U) 500 /ul High Negative [facility] Urine pHOrdered By: Savi Tavares on 09-27-2024 pH (U) 6.0 [pH] 5.0 - 8.0 [facility] Urine specific gravity measu rementOrdered By: Savi Tavares on 09-27-2024 Specific gravity (U) [Rel density] 1.010 1.002-1.03 0 [facility] Urobilinogen Ql (U)Ordered B y: Savi Tavares on 09-27-2024 Urine Urobilinogen Normal mg/dl Normal [facility] Bilirubin Test strip Ql (U)O rdered By: Lasha Pro on 09-25-2024 Bilirubin Ql (U) Negative Negative [facility] Glucose Ql (U)Ordered By: Brittany Pro on 09-25-2024 Urine Glucose (UA) Normal mg/dl Normal [facility] Ketones Test strip Ql (U)Ord ered By: Lasha Pro on 09-25-2024 Ketones Ql (U) Negative Negative [facility] Nitrite Test strip Ql (U)Ord ered By: Lasha Pro on 09-25-2024 Nitrite Ql (U) Negative Negative [facility] Protein Test strip Ql (U)Ord ered By: Lasha Pro on 09-25-2024 Protein Ql (U) 15 mg/dl High Negative [facility] Urine blood detectionOrdered By: Lasha Pro on 09-25-2024 Urine Occult Blood 25 /ul High Negative [facility] Urine clarityOrdered By: Maikel Pro on 09-25-2024 Clarity (U) Sl. Cloudy Clear [facility] Urine color determinationOrd ered By: Lasha Pro on 09-25-2024 Color (U) Yellow Yellow [facility] Urine cultureOrdered By: Maikel Pro on 09-25-2024 Bacteria identified Cx Nom (U) Positive Abnormal [facility] Urine leukocyte esterase det ection by dipstickOrdered By: Lasha Pro on 09-25-2024 Leukocyte esterase Test strip Ql (U) 500 /ul High Negative [facility] Urine pHOrdered By: Jennie Pro on 09-25-2024 pH (U) 6.5 [pH] 5.0 - 8.0 [facility] Urine specific gravity measu rementOrdered By: Lasha Pro on 09-25-2024 Specific gravity (U) [Rel density] 1.005 1.002-1.03 0 [facility] Urobilinogen Ql (U)Ordered B y: Lasha Pro on 09-25-2024 Urine Urobilinogen Normal mg/dl Normal [facility] TSH QnOrdered By: Lasha Pro on 09-18-2024 Thyroid Stimulating Hormone (TSH) 0.307 uIU/mL Low 0.358-3.74 0 [facility] Bilirubin Test strip Ql (U)O rdered By: Lasha Pro on 09-14-2024 Bilirubin Ql (U) Negative Negative [facility] Glucose Ql (U)Ordered By: Brittany Pro on 09-14-2024 Urine Glucose (UA) Normal mg/dl Normal [facility] Ketones Test strip Ql (U)Ord ered By: Lasha Pro on 09-14-2024 Ketones Ql (U) Negative Negative [facility] Nitrite Test strip Ql (U)Ord ered By: Lasha Pro on 09-14-2024 Nitrite Ql (U) Positive High Negative [facility] Protein Test strip Ql (U)Ord ered By: Lasha Pro on 09-14-2024 Protein Ql (U) 15 mg/dl High Negative [facility] TSH QnOrdered By: Lasha Pro on 09-14-2024 Thyroid Stimulating Hormone (TSH) 0.734 uIU/mL 0.358-3.74 0 [facility] Urine blood detectionOrdered By: Lasha Pro on 09-14-2024 Urine Occult Blood 25 /ul High Negative [facility] Urine clarityOrdered By: Maikel Pro on 09-14-2024 Clarity (U) Sl. Cloudy Clear [facility] Urine color determinationOrd ered By: Lasha Pro on 09-14-2024 Color (U) Yellow Yellow [facility] Urine cultureOrdered By: Maikel Pro on 09-14-2024 Bacteria identified Cx Nom (U) ESBL Escherichia coli Abnormal [facility] Urine leukocyte esterase det ection by dipstickOrdered By: Lasha Pro on 09-14-2024 Leukocyte esterase Test strip Ql (U) 500 /ul High Negative [facility] Urine pHOrdered By: Jennie Pro on 09-14-2024 pH (U) 6.5 [pH] 5.0 - 8.0 [facility] Urine specific gravity measu rementOrdered By: Lasha Pro on 09-14-2024 Specific gravity (U) [Rel density] 1.010 1.002-1.03 0 [facility] Urobilinogen Ql (U)Ordered B y: Lasha Pro on 09-14-2024 Urine Urobilinogen Normal mg/dl Normal [facility] Bilirubin Test strip Ql (U)O rdered By: Lasha Pro on 09-03-2024 Bilirubin Ql (U) Negative Negative [facility] Epithelial cells.squamous LM Ql (Urine sed)Ordered By: Lasha Pro on 09-03-2024 Epithelial cells.squamous LM.HPF (Urine sed) [#/Area] 5 /[HPF] 5-10 [facility] Glucose Ql (U)Ordered By: Brittany Pro on 09-03-2024 Urine Glucose (UA) Normal mg/dl Normal [facility] Ketones Test strip Ql (U)Ord ered By: Lasha Pro on 09-03-2024 Ketones Ql (U) Negative Negative [facility] Microscopic analysis of urin e for red blood cells (RBC)Ordered By: Lasha Pro on 09-03-2024 Urine RBC 0-5 SEEN /hpf 0-5 [facility] Mucus LM Ql (Urine sed)Order ed By: Lasha Pro on 09-03-2024 Mucus Ql (Urine sed) 0 SEEN /hpf [facility] Nitrite Test strip Ql (U)Ord ered By: Lasha Pro on 09-03-2024 Nitrite Ql (U) Positive High Negative [facility] Protein Test strip Ql (U)Ord ered By: Lasha Pro on 09-03-2024 Protein Ql (U) 30 mg/dl High Negative [facility] Transitional cells LM Ql (Ur ine sed)Ordered By: Lasha Pro on 09-03-2024 Urine Transitional Epithelial Cells 0-5 SEEN /hpf 0-5 [facility] Urine blood detectionOrdered By: Lasha Pro on 09-03-2024 Urine Occult Blood 25 /ul High Negative [facility] Urine clarityOrdered By: Maikel Pro on 09-03-2024 Clarity (U) Sl. Cloudy Clear [facility] Urine color determinationOrd ered By: Lasha Pro on 09-03-2024 Color (U) Yellow Yellow [facility] Urine cultureOrdered By: Maikel Pro on 09-03-2024 Bacteria identified Cx Nom (U) Mixed Gram Pos & Gram Neg Org Abnormal [facility] Urine leukocyte esterase det ection by dipstickOrdered By: Lasha Pro on 09-03-2024 Leukocyte esterase Test strip Ql (U) 500 /ul High Negative [facility] Urine pHOrdered By: Jennie Pro on 09-03-2024 pH (U) 6.0 [pH] 5.0 - 8.0 [facility] Urine sediment bacteria coun t by microscopy (number/high power field)Ordered By: Lasha Pro on 09-03-2024 Bacteria LM.HPF (Urine sed) [#/Area] 0 /[HPF] None Seen [facility] Urine specific gravity measu rementOrdered By: Lasha Pro on 09-03-2024 Specific gravity (U) [Rel density] 1.015 1.002-1.03 0 [facility] Urobilinogen Ql (U)Ordered B y: Lasha Pro on 09-03-2024 Urine Urobilinogen Normal mg/dl Normal [facility] White blood cell countOrdere d By: Lasha Pro on 09-03-2024 Urine WBC 50-100 SEEN /hpf 0-5 [facility] Yeast LM.HPF (Urine sed) [#/ Area]Ordered By: Lasha Pro on 09-03-2024 Urine Yeast 2+ /hpf None Seen [facility] High density lipoprotein (HD L) measurementOrdered By: Lasha Pro on 08-07-2024 Cholesterol in HDL [Mass/Vol] 62 mg/dL >40 [facility] Comment on above: The drugs N-Acetylcy steine and Metamizole may falsely depress this assay. Reference Range HDL <40 mg/dL Low HDL Cholesterol HDL >or= 60 mg/dL High HDL Cholesterol Low density lipoprotein (LDL ) cholesterol measurementOrdered By: Lasha Pro on 08-07-2024 Cholesterol in LDL [Mass/Vol] 45 mg/dL 0-130 [facility] Serum or plasma cholesterol measurement (mass/volume)Ordered By: Lasha Pro on 08-07-2024 Cholesterol [Mass/Vol] 133 mg/dL <200 [facility] Comment on above: <200 mg/dL Desirable 200-240 mg/dL Borderline >240 mg/dL High Risk TSH QnOrdered By: Lasha Pro on 08-07-2024 Thyroid Stimulating Hormone (TSH) 0.257 uIU/mL Low 0.358-3.74 0 [facility] Triglycerides measurementOrd ered By: Lasha Pro on 08-07-2024 Triglyceride [Mass/Vol] 130 mg/dL <199 [facility] Comment on above: The drugs N-Acetylcy steine and Metamizole may falsely depress this assay.Serum Triglycerides Reference Interval Normal <150 mg/dL Borderline high 150 - 199 mg/dL High 200 - 499 mg/dL Very High > or = 500 mg/dL Very low density lipoprotein (VLDL) cholesterol measurementOrdered By: Lasha Pro on 08-07-2024 VLDL Cholesterol 26 mg/dL 5-40 [facility] .Auto Diffon 02-14-2024 Basophil, Absolute 0.1 10 3/mcL Normal 0.0-0.3 [facility] ([place]) Comment on above: Performed By: #### M ORPH, CBC, DIFF #### [address] [address] Basophils/100 WBC (Bld) 2.1 % Normal 0.0-2.5 [facility] ([place]) Comment on above: Performed By: #### M ORPH, CBC, DIFF #### [address] [address] Eosinophil, Absolute 0.2 10 3/mcL Normal 0.0-0.7 [facility] ([place]) Comment on above: Performed By: #### M ORPH, CBC, DIFF #### [address] [address] Eosinophils/100 WBC (Bld) 5.2 % Normal 0.0-6.0 [facility] ([place]) Comment on above: Performed By: #### M ORPH, CBC, DIFF #### [address] [address] Lymphocyte, Absolute 1.2 10 3/mcL Normal 0.9-4.3 [facility] ([place]) Comment on above: Performed By: #### M ORPH, CBC, DIFF #### [address] [address] Lymphocytes/100 WBC (Bld) 28.4 % Normal 20.0-40.0 [facility] ([place]) Comment on above: Performed By: #### M ORPH, CBC, DIFF #### [address] [address] Monocyte, Absolute 0.4 10 3/mcL Normal 0.1-1.4 [facility] ([place]) Comment on above: Performed By: #### M ORPH, CBC, DIFF #### [address] [address] Monocytes/100 WBC (Bld) 10.7 % Normal 2.0-13.0 [facility] ([place]) Comment on above: Performed By: #### M ORPH, CBC, DIFF #### [address] [address] Neutrophils/100 WBC (Bld) 53.6 % Normal 50.0-75.0 [facility] ([place]) Comment on above: Performed By: #### M ORPH, CBC, DIFF #### [address] [address] .GFRon 02-14-2024 GFR >60 Normal [facility] ([place]) Comment on above: Result Comment: GFR Population [...] BMP, ADIFF, ANEU, GFR #### Rosa Maria [address] [address] GFR Non- >60 Normal [facility] ([place]) Comment on above: Result Comment: GFR Population [...] BMP, ADIFF, ANEU, GFR #### Rosa Maria [address] [id number] [place], [place] [address] .NEUABSon 02-14-2024 Neutrophil, Absolute 2.2 10 3/mcL Low 2.3-8.1 [facility] ([place]) Comment on above: Performed By: #### M ORPH, CBC, DIFF #### [address] [address] BMPon 02-14-2024 BUN/Creatinine Ratio 17.6 ratio Normal 10.0-22.0 [facility] ([place]) Comment on above: Performed By: #### M ORPH, CBC, DIFF #### [address] [address] Calcium [Mass/Vol] 8.4 mg/dL Low 8.7-10.4 [facility] ([place]) Comment on above: Performed By: #### M ORPH, CBC, DIFF #### [address] [address] Chloride [Moles/Vol] 108 mmol/L Normal 98-110 [facility] ([place]) Comment on above: Performed By: #### M ORPH, CBC, DIFF #### [address] [address] CO2 [Moles/Vol] 30 mmol/L Normal 22-32 [facility] ([place]) Comment on above: Performed By: #### M ORPH, CBC, DIFF #### [address] [address] Creatinine [Mass/Vol] 0.51 mg/dL Normal 0.50-1.20 [facility] ([place]) Comment on above: Performed By: #### M ORPH, CBC, DIFF #### [address] [address] Electrolyte Balance 4.0 mEq/L Normal 4.0-15.0 [facility] ([place]) Comment on above: Performed By: #### M ORPH, CBC, DIFF #### [address] [address] Glucose [Mass/Vol] 100 mg/dL Normal 82-115 [facility] ([place]) Comment on above: Performed By: #### M ORPH, CBC, DIFF #### [address] [address] Potassium [Moles/Vol] 3.7 mmol/L Normal 3.5-5.0 [facility] ([place]) Comment on above: Performed By: #### M ORPH, CBC, DIFF #### [address] [address] Sodium [Moles/Vol] 142 mmol/L Normal 136-145 [facility] ([place]) Comment on above: Performed By: #### M ORPH, CBC, DIFF #### [place] [id number] Urea nitrogen [Mass/Vol] 9.0 mg/dL Normal 8.0-22.0 [facility] ([place]) Comment on above: Performed By: #### M ORPH, CBC, DIFF #### [address] [address] CBCon 02-14-2024 Erythrocyte distribution width (RBC) [Ratio] 17.6 % High 11.5-15.5 [facility] ([place]) Comment on above: Performed By: #### M ORPH, CBC, DIFF #### [address] [address] Hematocrit (Bld) [Volume fraction] 29.4 % Low 34.0-46.0 [facility] ([place]) Comment on above: Performed By: #### M ORPH, CBC, DIFF #### [place] [id number] Hgb 9.6 G/dL Low 12.0-16.0 [facility] ([place]) Comment on above: Performed By: #### M ORPH, CBC, DIFF #### [place] [id number] MCH (RBC) [Entitic mass] 30.7 pg Normal 27.0-33.0 [facility] ([place]) Comment on above: Performed By: #### M ORPH, CBC, DIFF #### [place] [address] MCHC 32.7 G/dL Normal 32.0-36.0 [facility] ([place]) Comment on above: Performed By: #### M ORPH, CBC, DIFF #### [place] [address] MCV (RBC) [Entitic vol] 94.0 fL Normal 80.0-99.0 [facility] ([place]) Comment on above: Performed By: #### M ORPH, CBC, DIFF #### [place] [address] Platelet 209 10 3/mcL Normal 150-450 [facility] ([place]) Comment on above: Performed By: #### M ORPH, CBC, DIFF #### [place] [address] Platelet mean volume (Bld) [Entitic vol] 7.0 fL Normal 6.6-10.5 [facility] ([place]) Comment on above: Performed By: #### M ORPH, CBC, DIFF #### [place] [address] RBC 3.13 10 6/mcL Low 4.10-5.30 [facility] ([place]) Comment on above: Performed By: #### M ORPH, CBC, DIFF #### [place] [address] WBC 4.2 10 3/mcL Low 4.5-10.8 [facility] ([place]) Comment on above: Performed By: #### M ORPH, CBC, DIFF #### [place] [address] LABORATORYOrdered By: SYSTEM SYSTEM on 02-14-2024 Basophils [...] 0.2 103/mcL Normal 0.0 - 0.7 10^3/mcL Workflow SS Eosinophils/100 WBC (Bld) 5.2 % Normal 0.0 - 6.0 % Workflow SS Erythrocyte distribution width (RBC) [Ratio] 17.6 % High 11.5 - 15.5 % Workflow SS GFR/1.73 sq M.predicted among blacks MDRD (S/P/Bld) [Vol rate/Area] ml/min/1.73sqm Invalid Interpretation Code [employer] S Comment on above: Interpretive Data: [...] 7.0 fL Normal 6.6 - 10.5 fL Workflow SS Platelets (Bld) [#/Vol] 209 103/mcL Normal 150 - 450 10^3/mcL Workflow SS Potassium [Moles/Vol] 3.7 mmol/L Normal 3.5 - 5.0 mEq/L ADM SS RBC (Bld) [#/Vol] 3.13 106/mcL Low 4.10 - 5.30 10^6/mcL Workflow SS Sodium [Moles/Vol] 142 mmol/L Normal 136 - 145 mEq/L ADM SS Urea nitrogen [Mass/Vol] 9.0 mg/dL Normal 8.0 - 22.0 mg/dL ADM SS Urea nitrogen/Creatinine [Mass ratio] 17.6 ratio Normal 10.0 - 22.0 ratio ADM SS WBC (Bld) [#/Vol] 4.2 103/mcL Low 4.5 - 10.8 10^3/mcL Workflow SS MGon 02-14-2024 Magnesium [Mass/Vol] 1.9 mg/dL Normal 1.6-2.4 [facility] ([place]) Comment on above: Performed By: #### M ORPH, CBC, DIFF #### [address] [address] .Auto Diffon 02-12-2024 Basophil, Absolute 0.1 10 3/mcL Normal 0.0-0.3 [facility] ([place]) Comment on above: Performed By: #### M ORPH, CBC, DIFF #### [address] [address] Basophils/100 WBC (Bld) 1.9 % Normal 0.0-2.5 [facility] ([place]) Comment on above: Performed By: #### M ORPH, CBC, DIFF #### [address] [address] Eosinophil, Absolute 0.1 10 3/mcL Normal 0.0-0.7 [facility] ([place]) Comment on above: Performed By: #### M ORPH, CBC, DIFF #### [address] [address] Eosinophils/100 WBC (Bld) 3.5 % Normal 0.0-6.0 [facility] ([place]) Comment on above: Performed By: #### M ORPH, CBC, DIFF #### [address] [address] Lymphocyte, Absolute 1.1 10 3/mcL Normal 0.9-4.3 [facility] ([place]) Comment on above: Performed By: #### M ORPH, CBC, DIFF #### [address] [address] Lymphocytes/100 WBC (Bld) 26.8 % Normal 20.0-40.0 [facility] ([place]) Comment on above: Performed By: #### M ORPH, CBC, DIFF #### [address] [address] Monocyte, Absolute 0.4 10 3/mcL Normal 0.1-1.4 [facility] ([place] Comment on above: Performed By: #### M ORPH, CBC, DIFF #### [address] [address] Monocytes/100 WBC (Bld) 10.7 % Normal 2.0-13.0 [facility] ([place]) Comment on above: Performed By: #### M ORPH, CBC, DIFF #### [address] [address] Neutrophils/100 WBC (Bld) 57.1 % Normal 50.0-75.0 [facility] ([place]) Comment on above: Performed By: #### M ORPH, CBC, DIFF #### [address] [address] .NEUABSon 02-12-2024 Neutrophil, Absolute 2.3 10 3/mcL Normal 2.3-8.1 [facility] ([place]) Comment on above: Performed By: #### M ORPH, CBC, DIFF #### [address] [address] CBCon 02-12-2024 Erythrocyte distribution width (RBC) [Ratio] 17.3 % High 11.5-15.5 [facility] ([place]) Comment on above: Performed By: #### M ORPH, CBC, DIFF #### [address] [address] Hematocrit (Bld) [Volume fraction] 29.6 % Low 34.0-46.0 [facility] ([place]) Comment on above: Performed By: #### M ORPH, CBC, DIFF #### [address] [address] Hgb 9.6 G/dL Low 12.0-16.0 [facility] ([place]) Comment on above: Performed By: #### M ORPH, CBC, DIFF #### [address] [address] MCH (RBC) [Entitic mass] 30.7 pg Normal 27.0-33.0 [facility] ([place]) Comment on above: Performed By: #### M ORPH, CBC, DIFF #### [place] [address] MCHC 32.6 G/dL Normal 32.0-36.0 [facility] ([place] Comment on above: Performed By: #### M ORPH, CBC, DIFF #### [place] [address] MCV (RBC) [Entitic vol] 94.0 fL Normal 80.0-99.0 [facility] ([place]) Comment on above: Performed By: #### M ORPH, CBC, DIFF #### [place] [address] Platelet 215 10 3/mcL Normal 150-450 [facility] ([place]) Comment on above: Performed By: #### M ORPH, CBC, DIFF #### [place] [address] Platelet mean volume (Bld) [Entitic vol] 7.5 fL Normal 6.6-10.5 [facility] ([place]) Comment on above: Performed By: #### M ORPH, CBC, DIFF #### [place] [id number] RBC 3.15 10 6/mcL Low 4.10-5.30 [facility] ([place]) Comment on above: Performed By: #### M ORPH, CBC, DIFF #### [facility] [address] [place] [address] WBC 4.1 10 3/mcL Low 4.5-10.8 [facility] ([place]) Comment on above: Performed By: #### M ORPH, CBC, DIFF #### [facility] [address] [place] [address] LABORATORYOrdered By: SYSTEM SYSTEM on 02-12-2024 Basophils (Bld) [#/Vol] 0.1 103/mcL Normal 0.0 - 0.3 10^3/mcL AH Workflow SS Basophils/100 WBC (Bld) 1.9 % Normal 0.0 - 2.5 % AH Workflow SS Eosinophils (Bld) [#/Vol] 0.1 103/mcL Normal 0.0 - 0.7 10^3/mcL AH Workflow SS Eosinophils/100 WBC (Bld) 3.5 % Normal 0.0 - 6.0 % AH Workflow SS Erythrocyte distribution width (RBC) [Ratio] 17.3 % High 11.5 - 15.5 % AH Workflow SS Hematocrit (Bld) [Volume fraction] 29.6 % Low 34.0 - 46.0 % AH Workflow SS Hemoglobin (Bld) [Mass/Vol] 9.6 G/dL Low 12.0 - 16.0 G/dL AH Workflow SS Lymphocytes (Bld) [#/Vol] 1.1 103/mcL Normal 0.9 - 4.3 10^3/mcL AH Workflow SS Lymphocytes/100 WBC (Bld) 26.8 % [...] 02/11/2024 5:26:58 PM Ordering Provider: DRE Woody [facility] ([place]) [facility] 02-10-2024 Hematocrit (Bld) [Volume fraction] 29.5 % Low 34.0-46.0 [facility] ([place]) Comment on above: Performed By: #### U A #### Rosa Maria [address] [address] Hgb 9.9 G/dL Low 12.0-16.0 [facility] ([place]) Comment on above: Performed By: #### U A #### [facility] [address] [place], [place] [address] LABORATORYOrdered By: SYSTEM SYSTEM on 02-10-2024 Hematocrit (Bld) [Volume fraction] 29.5 % Low 34.0 - 46.0 % AH Workflow SS Hemoglobin (Bld) [Mass/Vol] 9.9 G/dL Low 12.0 - 16.0 G/dL AH Workflow SS .Manual Diffon 02-09-2024 Basophil %, Manual 2.0 % Normal 0.0-2.5 [facility] ([place]) Comment on above: Performed By: #### M ORPH, CBC, DIFF #### [address] [address] Basophil, Abs Manual 0.1 10 3/mcL Normal 0.0-0.3 [facility] ([place]) Comment on above: Performed By: #### M ORPH, CBC, DIFF #### [address] [address] Eosinophil %, Manual 5.0 % Normal 0.0-6.0 [facility] ([place]) Comment on above: Performed By: #### M ORPH, CBC, DIFF #### [address] [address] Eosinophil, Abs Manual 0.4 10 3/mcL Normal 0.0-0.7 [facility] ([place]) Comment on above: Performed By: #### M ORPH, CBC, DIFF #### [address] [address] Lymphocyte %, Manual 32.0 % Normal 20.0-40.0 [facility] ([place]) Comment on above: Performed By: #### M ORPH, CBC, DIFF #### [address] [address] Lymphocyte, Abs Manual 2.2 10 3/mcL Normal 0.9-4.3 [facility] ([place]) Comment on above: Performed By: #### M ORPH, CBC, DIFF #### [address] [address] Monocyte %, Manual 7.0 % Normal 2.0-13.0 [facility] ([place]) Comment on above: Performed By: #### M ORPH, CBC, DIFF #### [address] [address] Monocyte, Abs Manual 0.5 10 3/mcL Normal 0.1-1.4 [facility] ([place]) Comment on above: Performed By: #### M ORPH, CBC, DIFF #### [place] [address] Neutrophil %, Manual 54.0 % Normal 50.0-75.0 [facility] ([place]) Comment on above: Performed By: #### M ORPH, CBC, DIFF #### [place] [address] Neutrophil, Abs Manual 3.7 10 3/mcL Normal 2.3-8.1 [facility] ([place]) Comment on above: Performed By: #### M ORPH, CBC, DIFF #### [place] [address] Nucleated RBC 0.0 /100 WBC Normal [facility] ([place]) Comment on above: Performed By: #### M ORPH, CBC, DIFF #### [address] [address] .Morphon 02-09-2024 Anisocytosis Ql (Bld) 1+ Normal [facility] ([place]) Comment on above: Performed By: #### M ORPH, CBC, DIFF #### [place] [address] Platelet Estimate Normal Normal [facility] ([place]) Comment on above: Performed By: #### M ORPH, CBC, DIFF #### [place] [address] Polychrom 1+ Normal [facility] ([place]) Comment on above: Performed By: #### M ORPH, CBC, DIFF #### [place] [address] CBCon 02-09-2024 Platelet 220 10 3/mcL Normal 150-450 [facility] ([place]) Comment on above: Performed By: #### M ORPH, CBC, DIFF #### [address] [address] Platelet mean volume (Bld) [Entitic vol] 7.5 fL Normal 6.6-10.5 [facility] ([place]) Comment on above: Performed By: #### M ORPH, CBC, DIFF #### [place] [address] WBC 7.0 10 3/mcL Normal 4.5-10.8 [facility] ([place]) Comment on above: Performed By: #### M ORPH, CBC, DIFF #### [place] [address] Erythrocyte distribution width (RBC) [Ratio] 16.9 % High 11.5-15.5 [facility] ([place]) Comment on above: Performed By: #### M ORPH, CBC, DIFF #### [place] [address] Hematocrit (Bld) [Volume fraction] 29.8 % Low 34.0-46.0 [facility] ([place]) Comment on above: Performed By: #### M ORPH, CBC, DIFF #### [place] [address] Hgb 9.8 G/dL Low 12.0-16.0 [facility] ([place]) Comment on above: Performed By: #### M ORPH, CBC, DIFF #### [place] [address] MCH (RBC) [Entitic mass] 30.8 pg Normal 27.0-33.0 [facility] ([place]) Comment on above: Performed By: #### M ORPH, CBC, DIFF #### [place] [address] MCHC 33.0 G/dL Normal 32.0-36.0 [facility] ([place]) Comment on above: Performed By: #### M ORPH, CBC, DIFF #### [place] [address] MCV (RBC) [Entitic vol] 93.3 fL Normal 80.0-99.0 [facility] ([place]) Comment on above: Performed By: #### M ORPH, CBC, DIFF #### [facility] [address] [place] [address] RBC 3.19 10 6/mcL Low 4.10-5.30 [facility] ([place]) Comment on above: Performed By: #### M ORPH, CBC, DIFF #### [facility] [address] [place] [address] LABORATORYOrdered By: SYSTEM SYSTEM on 02-09-2024 Anisocytosis [...] 7.0 103/mcL Normal 4.5 - 10.8 10^3/mcL AH Workflow SS .Auto Diffon 02-08-2024 Basophil, Absolute 0.1 10 3/mcL Normal 0.0-0.3 [facility] ([place]) Comment on above: Performed By: #### M G, CBC, BMP, ADIFF, ANEU, GFR #### [address] [address] Basophils/100 WBC (Bld) 2.3 % Normal 0.0-2.5 [facility] ([place]) Comment on above: Performed By: #### M G, CBC, BMP, ADIFF, ANEU, GFR #### [address] [address] Eosinophil, Absolute 0.1 10 3/mcL Normal 0.0-0.7 [facility] ([place]) Comment on above: Performed By: #### M G, CBC, BMP, ADIFF, ANEU, GFR #### [address] [address] Eosinophils/100 WBC (Bld) 2.9 % Normal 0.0-6.0 [facility] ([place]) Comment on above: Performed By: #### M G, CBC, BMP, ADIFF, ANEU, GFR #### [address] [address] Lymphocyte, Absolute 0.8 10 3/mcL Low 0.9-4.3 [facility] ([place]) Comment on above: Performed By: #### M G, CBC, BMP, ADIFF, ANEU, GFR #### [address] [address] Lymphocytes/100 WBC (Bld) 20.7 % Normal 20.0-40.0 [facility] ([place]) Comment on above: Performed By: #### M G, CBC, BMP, ADIFF, ANEU, GFR #### [address] [address] Monocyte, Absolute 0.4 10 3/mcL Normal 0.1-1.4 [facility] ([place]) Comment on above: Performed By: #### M G, CBC, BMP, ADIFF, ANEU, GFR #### [address] [address] Monocytes/100 WBC (Bld) 10.1 % Normal 2.0-13.0 [facility] ([place]) Comment on above: Performed By: #### M G, CBC, BMP, ADIFF, ANEU, GFR #### [address] [address] Neutrophils/100 WBC (Bld) 64.0 % Normal 50.0-75.0 [facility] ([place]) Comment on above: Performed By: #### M G, CBC, BMP, ADIFF, ANEU, GFR #### [address] [address] .GFRon 02-08-2024 GFR >60 Normal [facility] ([place]) Comment on above: Result Comment: GFR Population [...] G, CBC, BMP, ADIFF, ANEU, GFR #### [address] [address] GFR Non- >60 Normal [facility] ([place]) Comment on above: Result Comment: GFR Population [...] G, CBC, BMP, ADIFF, ANEU, GFR #### [address] [address] .NEUABSon 02-08-2024 Neutrophil, Absolute 2.6 10 3/mcL Normal 2.3-8.1 [facility] ([place]) Comment on above: Performed By: #### M G, CBC, BMP, ADIFF, ANEU, GFR #### [address] [address] BMPon 02-08-2024 BUN/Creatinine Ratio 14.5 ratio Normal 10.0-22.0 [facility] ([place]) Comment on above: Performed By: #### M G, CBC, BMP, ADIFF, ANEU, GFR #### [address] [address] Calcium [Mass/Vol] 8.5 mg/dL Low 8.7-10.4 [facility] ([place]) Comment on above: Performed By: #### M G, CBC, BMP, ADIFF, ANEU, GFR #### [address] [address] Chloride [Moles/Vol] 107 mmol/L Normal 98-110 [facility] ([place]) Comment on above: Performed By: #### M G, CBC, BMP, ADIFF, ANEU, GFR #### [address] [address] CO2 [Moles/Vol] 26 mmol/L Normal 22-32 [facility] ([place]) Comment on above: Performed By: #### M G, CBC, BMP, ADIFF, ANEU, GFR #### [address] [address] Creatinine [Mass/Vol] 0.62 mg/dL Normal 0.50-1.20 [facility] ([place]) Comment on above: Performed By: #### M G, CBC, BMP, ADIFF, ANEU, GFR #### [address] [address] Electrolyte Balance 9.0 mEq/L Normal 4.0-15.0 [facility] ([place]) Comment on above: Performed By: #### M G, CBC, BMP, ADIFF, ANEU, GFR #### [address] [address] Glucose [Mass/Vol] 108 mg/dL Normal 82-115 [facility] ([place]) Comment on above: Performed By: #### M G, CBC, BMP, ADIFF, ANEU, GFR #### [address] [address] Potassium [Moles/Vol] 4.0 mmol/L Normal 3.5-5.0 [facility] ([place]) Comment on above: Performed By: #### M G, CBC, BMP, ADIFF, ANEU, GFR #### [address] [address] Sodium [Moles/Vol] 142 mmol/L Normal 136-145 [facility] ([place]) Comment on above: Performed By: #### M G, CBC, BMP, ADIFF, ANEU, GFR #### [place] [id number] Urea nitrogen [Mass/Vol] 9.0 mg/dL Normal 8.0-22.0 [facility] ([place]) Comment on above: Performed By: #### M G, CBC, BMP, ADIFF, ANEU, GFR #### [address] [address] CBCon 02-08-2024 Erythrocyte distribution width (RBC) [Ratio] 16.4 % High 11.5-15.5 [facility] ([place]) Comment on above: Performed By: #### M G, CBC, BMP, ADIFF, ANEU, GFR #### [place] [address] Hematocrit (Bld) [Volume fraction] 32.7 % Low 34.0-46.0 [facility] ([place]) Comment on above: Performed By: #### M G, CBC, BMP, ADIFF, ANEU, GFR #### [place] [id number] Hgb 10.8 G/dL Low 12.0-16.0 [facility] ([place]) Comment on above: Performed By: #### M G, CBC, BMP, ADIFF, ANEU, GFR #### [place] [phone] MCH (RBC) [Entitic mass] 30.9 pg Normal 27.0-33.0 [facility] ([place]) Comment on above: Performed By: #### M G, CBC, BMP, ADIFF, ANEU, GFR #### [place] 847427 MCHC 33.0 G/dL Normal 32.0-36.0 [facility] ([place]) Comment on above: Performed By: #### M G, CBC, BMP, ADIFF, ANEU, GFR #### [place] [phone] MCV (RBC) [Entitic vol] 93.5 fL Normal 80.0-99.0 [facility] ([place]) Comment on above: Performed By: #### M G, CBC, BMP, ADIFF, ANEU, GFR #### [address] [address] Platelet 224 10 3/mcL Normal 150-450 [facility] ([place]) Comment on above: Performed By: #### M G, CBC, BMP, ADIFF, ANEU, GFR #### [place] [id number] [place], [place] [address] Platelet mean volume (Bld) [Entitic vol] 7.3 fL Normal 6.6-10.5 [facility] ([place]) Comment on above: Performed By: #### M G, CBC, BMP, ADIFF, ANEU, GFR #### [address] [address] RBC 3.50 10 6/mcL Low 4.10-5.30 [facility] ([place]) Comment on above: Performed By: #### M G, CBC, BMP, ADIFF, ANEU, GFR #### [address] [address] WBC 4.1 10 3/mcL Low 4.5-10.8 [facility] ([place]) Comment on above: Performed By: #### M G, CBC, BMP, ADIFF, ANEU, GFR #### [address] [address] LABORATORYOrdered By: SYSTEM SYSTEM on 02-08-2024 Basophils (Bld) [#/Vol] 0.1 103/mcL Normal 0.0 - 0.3 10^3/mcL AH Workflow SS Basophils/100 WBC (Bld) 2.3 % Normal 0.0 - 2.5 % AH Workflow SS Calcium [Mass/Vol] 8.5 mg/dL Low 8.7 - 10. 4 mg/dL AH ADM SS Chloride [Moles/Vol] 107 mmol/L Normal 98 - 11 0 mEq/L AH ADM SS CO2 [Moles/Vol] 26 mmol/L Normal 22 - 32 mEq/L AH ADM SS Creatinine [Mass/Vol] 0.62 mg/dL Normal 0.50 - 1.20 mg/dL ADM SS Electrolyte Balance 9.0 mEq/L Normal 4.0 - 15 .0 mEq/L AH ADM SS Eosinophils (Bld) [#/Vol] 0.1 103/mcL [...] (S/P/Bld) [Vol rate/Area] ml/min/1.73sqm Invalid Interpretation Code [employer] Chemistry S Comment on above: Interpretive Data: [...] 0.8 103/mcL Low 0.9 - 4.3 10^3/mcL Workflow SS Lymphocytes/100 WBC (Bld) 20.7 % Normal 20.0 - 40.0 % AH Workflow SS Magnesium [Mass/Vol] 2.1 mg/dL Normal 1.6 - 2 .4 mg/dL AH ADM SS Monocytes (Bld) [#/Vol] 0.4 103/mcL Normal 0.1 - 1.4 10^3/mcL AH Workflow SS Monocytes/100 WBC (Bld) 10.1 % Normal 2.0 - 13.0 % AH Workflow SS Neutrophils (Bld) [#/Vol] 2.6 103/mcL Normal 2.3 - 8.1 10^3/mcL AH Workflow SS Neutrophils/100 WBC (Bld) 64.0 % Normal 50.0 - 75.0 % AH Workflow SS Potassium [Moles/Vol] 4.0 mmol/L Normal 3.5 - 5.0 mEq/L ADM SS Sodium [Moles/Vol] 142 mmol/L Normal 136 - 145 mEq/L ADM SS Urea nitrogen [Mass/Vol] 9.0 mg/dL Normal 8.0 - 22.0 mg/dL ADM SS Urea nitrogen/Creatinine [Mass ratio] 14.5 ratio Normal 10.0 - 22.0 ratio ADM SS MGon 02-08-2024 Magnesium [Mass/Vol] 2.1 mg/dL Normal 1.6-2.4 [facility] ([place]) Comment on above: Performed By: #### M G, CBC, BMP, ADIFF, ANEU, GFR #### [address] [address] .Auto Diffon 02-07-2024 Basophil, Absolute 0.1 10 3/mcL Normal 0.0-0.3 [facility] ([place]) Comment on above: Performed By: #### A MANJULA, CBC, ADIFF, GFR, BMP #### [place] [address] [address] Basophils/100 WBC (Bld) 1.4 % Normal 0.0-2.5 [facility] ([place]) Comment on above: Performed By: #### A MANJULA, CBC, ADIFF, GFR, BMP #### [place] [address] [address] Eosinophil, Absolute 0.1 10 3/mcL Normal 0.0-0.7 [facility] ([place]) Comment on above: Performed By: #### A MANJULA, CBC, ADIFF, GFR, BMP #### [address] [address] Eosinophils/100 WBC (Bld) 2.6 % Normal 0.0-6.0 [facility] ([place]) Comment on above: Performed By: #### A MANJULA, CBC, ADIFF, GFR, BMP #### [address] [address] Lymphocyte, Absolute 1.1 10 3/mcL Normal 0.9-4.3 [facility] ([place]) Comment on above: Performed By: #### A MANJULA, CBC, ADIFF, GFR, BMP #### [address] [address] Lymphocytes/100 WBC (Bld) 23.2 % Normal 20.0-40.0 [facility] ([place]) Comment on above: Performed By: #### A MANJULA, CBC, ADIFF, GFR, BMP #### [address] [address] Monocyte, Absolute 0.5 10 3/mcL Normal 0.1-1.4 [facility] ([place]) Comment on above: Performed By: #### A MANJULA, CBC, ADIFF, GFR, BMP #### [address] [address] Monocytes/100 WBC (Bld) 10.1 % Normal 2.0-13.0 [facility] ([place]) Comment on above: Performed By: #### A MANJULA, CBC, ADIFF, GFR, BMP #### [address] [address] Neutrophils/100 WBC (Bld) 62.7 % Normal 50.0-75.0 [facility] ([place]) Comment on above: Performed By: #### A MANJULA, CBC, ADIFF, GFR, BMP #### [address] [address] .GFRon 02-07-2024 GFR >60 Normal [facility] ([place]) Comment on above: Result Comment: GFR Population [...] A MANJULA, CBC, ADIFF, GFR, BMP #### [address] [address] GFR Non- >60 Normal [facility] ([place]) Comment on above: Result Comment: GFR Population [...] A MANJULA, CBC, ADIFF, GFR, BMP #### [address] [address] .NEUABSon 02-07-2024 Neutrophil, Absolute 2.8 10 3/mcL Normal 2.3-8.1 [facility] ([place]) Comment on above: Performed By: #### A MANJULA, CBC, ADIFF, GFR, BMP #### [address] [address] BMPon 02-07-2024 BUN/Creatinine Ratio 14.3 ratio Normal 10.0-22.0 [facility] ([place]) Comment on above: Performed By: #### A MANJULA, CBC, ADIFF, GFR, BMP #### [address] [address] Calcium [Mass/Vol] 8.4 mg/dL Low 8.7-10.4 [facility] ([place]) Comment on above: Performed By: #### A MANJULA, CBC, ADIFF, GFR, BMP #### [address] [address] Chloride [Moles/Vol] 107 mmol/L Normal 98-110 [facility] ([place]) Comment on above: Performed By: #### A MANJULA, CBC, ADIFF, GFR, BMP #### [address] [address] CO2 [Moles/Vol] 27 mmol/L Normal 22-32 [facility] ([place]) Comment on above: Performed By: #### A MANJULA, CBC, ADIFF, GFR, BMP #### [address] [address] Creatinine [Mass/Vol] 0.70 mg/dL Normal 0.50-1.20 [facility] ([place]) Comment on above: Performed By: #### A MANJULA, CBC, ADIFF, GFR, BMP #### [address] [address] Electrolyte Balance 7.0 mEq/L Normal 4.0-15.0 [facility] ([place]) Comment on above: Performed By: #### A MANJULA, CBC, ADIFF, GFR, BMP #### [address] [address] Glucose [Mass/Vol] 94 mg/dL Normal 82-115 [facility] ([place]) Comment on above: Performed By: #### A MANJULA, CBC, ADIFF, GFR, BMP #### [address] [address] Potassium [Moles/Vol] 4.2 mmol/L Normal 3.5-5.0 [facility] ([place]) Comment on above: Performed By: #### A MANJULA, CBC, ADIFF, GFR, BMP #### [address] [address] Sodium [Moles/Vol] 141 mmol/L Normal 136-145 [facility] ([place]) Comment on above: Performed By: #### A MANJULA, CBC, ADIFF, GFR, BMP #### [address] [address] Urea nitrogen [Mass/Vol] 10.0 mg/dL Normal 8.0-22.0 [facility] ([place]) Comment on above: Performed By: #### A MANJULA, CBC, ADIFF, GFR, BMP #### [address] [address] CBCon 02-07-2024 Erythrocyte distribution width (RBC) [Ratio] 16.2 % High 11.5-15.5 [facility] ([place]) Comment on above: Performed By: #### A MANJULA, CBC, ADIFF, GFR, BMP #### [place] [id number] Hematocrit (Bld) [Volume fraction] 32.8 % Low 34.0-46.0 [facility] ([place]) Comment on above: Performed By: #### A MANJULA, CBC, ADIFF, GFR, BMP #### [address] [address] Hgb 10.7 G/dL Low 12.0-16.0 [facility] ([place]) Comment on above: Performed By: #### A MANJULA, CBC, ADIFF, GFR, BMP #### [address] [address] MCH (RBC) [Entitic mass] 30.6 pg Normal 27.0-33.0 [facility] ([place]) Comment on above: Performed By: #### A MANJULA, CBC, ADIFF, GFR, BMP #### [address] [address] MCHC 32.7 G/dL Normal 32.0-36.0 [facility] ([place]) Comment on above: Performed By: #### A MANJULA, CBC, ADIFF, GFR, BMP #### [address] [address] MCV (RBC) [Entitic vol] 93.6 fL Normal 80.0-99.0 [facility] ([place]) Comment on above: Performed By: #### A MANJULA, CBC, ADIFF, GFR, BMP #### [address] [address] Platelet 215 10 3/mcL Normal 150-450 [facility] ([place]) Comment on above: Performed By: #### A MANJULA, CBC, ADIFF, GFR, BMP #### [address] [address] Platelet mean volume (Bld) [Entitic vol] 7.5 fL Normal 6.6-10.5 [facility] ([place]) Comment on above: Performed By: #### A MANJULA, CBC, ADIFF, GFR, BMP #### [address] [address] RBC 3.50 10 6/mcL Low 4.10-5.30 [facility] ([place]) Comment on above: Performed By: #### A MANJULA, CBC, ADIFF, GFR, BMP #### [address] [address] WBC 4.5 10 3/mcL Normal 4.5-10.8 [facility] ([place]) Comment on above: Performed By: #### A MANJULA, CBC, ADIFF, GFR, BMP #### [address] [address] LABORATORYOrdered By: SYSTEM SYSTEM on 02-07-2024 Calcium [Mass/Vol] 8.4 mg/dL Low 8.7 - 10. 4 mg/dL AH ADM SS Chloride [Moles/Vol] 107 mmol/L Normal 98 - 11 0 mEq/L AH ADM SS CO2 [Moles/Vol] 27 mmol/L Normal 22 - 32 mEq/L AH ADM SS Creatinine [Mass/Vol] 0.70 mg/dL Normal 0.50 - 1.20 mg/dL AH ADM SS Electrolyte Balance 7.0 mEq/L Normal 4.0 - 15 .0 mEq/L AH ADM SS GFR/1.73 sq M.predicted among blacks MDRD (S/P/Bld) [Vol rate/Area] ml/min/1.73sqm Invalid Interpretation Code [employer] Chemistry S Comment on above: Interpretive Data: [...] (S/P/Bld) [Vol rate/Area] ml/min/1.73sqm Invalid Interpretation Code [employer] Chemistry S Comment on above: Interpretive Data: [...] mg/dL Normal 1.6 - 2 .4 mg/dL AH ADM SS Potassium [Moles/Vol] 4.2 mmol/L Normal 3.5 - 5.0 mEq/L AH ADM SS Sodium [Moles/Vol] 141 mmol/L Normal 136 - 145 mEq/L AH ADM SS Urea nitrogen [Mass/Vol] 10.0 mg/dL Normal 8.0 - 22.0 mg/dL AH ADM SS Urea nitrogen/Creatinine [Mass ratio] 14.3 ratio Normal 10.0 - 22.0 ratio AH ADM SS MGon 02-07-2024 Magnesium [Mass/Vol] 1.9 mg/dL Normal 1.6-2.4 [facility] ([place]) Comment on above: Performed By: #### A MANJULA, CBC, ADIFF, GFR, BMP #### [address] [address] .Auto Diffon 02-06-2024 Basophil, Absolute 0.1 10 3/mcL Normal 0.0-0.3 [facility] ([place]) Comment on above: Performed By: #### M ORPH, CBC, DIFF #### [address] [address] Basophils/100 WBC (Bld) 1.5 % Normal 0.0-2.5 [facility] ([place]) Comment on above: Performed By: #### M ORPH, CBC, DIFF #### [address] [address] Eosinophil, Absolute 0.1 10 3/mcL Normal 0.0-0.7 [facility] ([place]) Comment on above: Performed By: #### M ORPH, CBC, DIFF #### [address] [address] Eosinophils/100 WBC (Bld) 2.6 % Normal 0.0-6.0 [facility] ([place]) Comment on above: Performed By: #### M ORPH, CBC, DIFF #### [address] [address] Lymphocyte, Absolute 0.9 10 3/mcL Normal 0.9-4.3 [facility] ([place]) Comment on above: Performed By: #### M ORPH, CBC, DIFF #### [address] [address] Lymphocytes/100 WBC (Bld) 22.0 % Normal 20.0-40.0 [facility] ([place]) Comment on above: Performed By: #### M ORPH, CBC, DIFF #### [facility] [address] [place] [address] Monocyte, Absolute 0.4 10 3/mcL Normal 0.1-1.4 [facility] ([place]) Comment on above: Performed By: #### M ORPH, CBC, DIFF #### [facility] [address] [place] [address] Monocytes/100 WBC (Bld) 9.3 % Normal 2.0-13.0 [facility] ([place]) Comment on above: Performed By: #### M ORPH, CBC, DIFF #### [facility] [address] [place] [address] Neutrophils/100 WBC (Bld) 64.6 % Normal 50.0-75.0 [facility] ([place]) Comment on above: Performed By: #### M ORPH, CBC, DIFF #### [address] [address] .GFRon 02-06-2024 GFR >60 Normal [facility] ([place]) Comment on above: Result Comment: GFR Population [...] By: #### M ORPH, CBC, DIFF #### [address] [address] GFR Non- >60 Normal [facility] ([place]) Comment on above: Result Comment: GFR Population [...] By: #### M ORPH, CBC, DIFF #### [address] [address] .NEUABSon 02-06-2024 Neutrophil, Absolute 2.7 10 3/mcL Normal 2.3-8.1 [facility] ([place]) Comment on above: Performed By: #### M ORPH, CBC, DIFF #### [address] [address] BMPon 02-06-2024 BUN/Creatinine Ratio 14.8 ratio Normal 10.0-22.0 [facility] ([place]) Comment on above: Performed By: #### M ORPH, CBC, DIFF #### [address] [address] Calcium [Mass/Vol] 8.4 mg/dL Low 8.7-10.4 [facility] ([place]) Comment on above: Performed By: #### M ORPH, CBC, DIFF #### [address] [address] Chloride [Moles/Vol] 107 mmol/L Normal 98-110 [facility] ([place]) Comment on above: Performed By: #### M ORPH, CBC, DIFF #### [address] [address] CO2 [Moles/Vol] 29 mmol/L Normal 22-32 [facility] ([place]) Comment on above: Performed By: #### M ORPH, CBC, DIFF #### [address] [address] Creatinine [Mass/Vol] 0.61 mg/dL Normal 0.50-1.20 [facility] ([place]) Comment on above: Performed By: #### M ORPH, CBC, DIFF #### [address] [address] Electrolyte Balance 4.0 mEq/L Normal 4.0-15.0 [facility] ([place]) Comment on above: Performed By: #### M ORPH, CBC, DIFF #### [address] [address] Glucose [Mass/Vol] 93 mg/dL Normal 82-115 [facility] ([place]) Comment on above: Performed By: #### M ORPH, CBC, DIFF #### [address] [address] Potassium [Moles/Vol] 4.1 mmol/L Normal 3.5-5.0 [facility] ([place]) Comment on above: Performed By: #### M ORPH, CBC, DIFF #### [address] [address] Sodium [Moles/Vol] 140 mmol/L Normal 136-145 [facility] ([place]) Comment on above: Performed By: #### M ORPH, CBC, DIFF #### [address] [address] Urea nitrogen [Mass/Vol] 9.0 mg/dL Normal 8.0-22.0 [facility] ([place]) Comment on above: Performed By: #### M ORPH, CBC, DIFF #### [address] [address] CBCon 02-06-2024 Erythrocyte distribution width (RBC) [Ratio] 16.3 % High 11.5-15.5 [facility] ([place]) Comment on above: Performed By: #### M ORPH, CBC, DIFF #### [address] [address] Hematocrit (Bld) [Volume fraction] 28.6 % Low 34.0-46.0 [facility] ([place]) Comment on above: Performed By: #### M ORPH, CBC, DIFF #### [address] [address] Hgb 9.5 G/dL Low 12.0-16.0 [facility] ([place]) Comment on above: Performed By: #### M ORPH, CBC, DIFF #### [address] [address] MCH (RBC) [Entitic mass] 30.7 pg Normal 27.0-33.0 [facility] ([place]) Comment on above: Performed By: #### M ORPH, CBC, DIFF #### [address] [address] MCHC 33.4 G/dL Normal 32.0-36.0 [facility] ([place]) Comment on above: Performed By: #### M ORPH, CBC, DIFF #### [address] [address] MCV (RBC) [Entitic vol] 92.1 fL Normal 80.0-99.0 [facility] ([place]) Comment on above: Performed By: #### M ORPH, CBC, DIFF #### [address] [address] Platelet 219 10 3/mcL Normal 150-450 [facility] ([place]) Comment on above: Performed By: #### M ORPH, CBC, DIFF #### [address] [address] Platelet mean volume (Bld) [Entitic vol] 7.4 fL Normal 6.6-10.5 [facility] ([place]) Comment on above: Performed By: #### M ORPH, CBC, DIFF #### [address] [address] RBC 3.10 10 6/mcL Low 4.10-5.30 [facility] ([place]) Comment on above: Performed By: #### M ORPH, CBC, DIFF #### [address] [address] WBC 4.2 10 3/mcL Low 4.5-10.8 [facility] ([place]) Comment on above: Performed By: #### M ORPH, CBC, DIFF #### [address] [address] MGon 02-06-2024 Magnesium [Mass/Vol] 2.0 mg/dL Normal 1.6-2.4 [facility] ([place]) Comment on above: Performed By: #### M ORPH, CBC, DIFF #### [address] [address] .Auto Diffon 02-05-2024 Basophil, Absolute 0.0 10 3/mcL Normal 0.0-0.3 [facility] ([place]) Comment on above: Performed By: #### M ORPH, CBC, DIFF #### [address] [address] Basophils/100 WBC (Bld) 1.5 % Normal 0.0-2.5 [facility] ([place]) Comment on above: Performed By: #### M ORPH, CBC, DIFF #### [address] [address] Eosinophil, Absolute 0.1 10 3/mcL Normal 0.0-0.7 [facility] ([place]) Comment on above: Performed By: #### M ORPH, CBC, DIFF #### [address] [address] Eosinophils/100 WBC (Bld) 3.4 % Normal 0.0-6.0 [facility] ([place]) Comment on above: Performed By: #### M ORPH, CBC, DIFF #### [address] [address] Lymphocyte, Absolute 0.8 10 3/mcL Low 0.9-4.3 [facility] ([place] Comment on above: Performed By: #### M ORPH, CBC, DIFF #### [address] [address] Lymphocytes/100 WBC (Bld) 26.8 % Normal 20.0-40.0 [facility] ([place]) Comment on above: Performed By: #### M ORPH, CBC, DIFF #### [address] [address] Monocyte, Absolute 0.3 10 3/mcL Normal 0.1-1.4 [facility] ([place]) Comment on above: Performed By: #### M ORPH, CBC, DIFF #### [address] [address] Monocytes/100 WBC (Bld) 10.9 % Normal 2.0-13.0 [facility] ([place]) Comment on above: Performed By: #### M ORPH, CBC, DIFF #### [address] [address] Neutrophils/100 WBC (Bld) 57.4 % Normal 50.0-75.0 [facility] ([place]) Comment on above: Performed By: #### M ORPH, CBC, DIFF #### [address] [address] .GFRon 02-05-2024 GFR >60 Normal [facility] ([place]) Comment on above: Result Comment: GFR Population [...] By: #### M ORPH, CBC, DIFF #### [address] [address] GFR Non- >60 Normal [facility] ([place]) Comment on above: Result Comment: GFR Population [...] By: #### M ORPH, CBC, DIFF #### [address] [address] .NEUABSon 02-05-2024 Neutrophil, Absolute 1.8 10 3/mcL Low 2.3-8.1 [facility] ([place] Comment on above: Performed By: #### M ORPH, CBC, DIFF #### [address] [address] BMPon 02-05-2024 BUN/Creatinine Ratio 20.3 ratio Normal 10.0-22.0 [facility] ([place]) Comment on above: Order Comment: Routi ne for 0501 the morning of patient admission. Performed By: #### M ORPH, CBC, DIFF #### [place] [address] Calcium [Mass/Vol] 8.3 mg/dL Low 8.7-10.4 [facility] ([place]) Comment on above: Order Comment: Routi ne for 0501 the morning of patient admission. Performed By: #### M ORPH, CBC, DIFF #### [place] [address] Chloride [Moles/Vol] 108 mmol/L Normal 98-110 [facility] ([place] Comment on above: Order Comment: Routi ne for 0501 the morning of patient admission. Performed By: #### M ORPH, CBC, DIFF #### [place] [id number] CO2 [Moles/Vol] 27 mmol/L Normal 22-32 [facility] ([place]) Comment on above: Order Comment: Routi ne for 0501 the morning of patient admission. Performed By: #### M ORPH, CBC, DIFF #### [place] [id number] Creatinine [Mass/Vol] 0.59 mg/dL Normal 0.50-1.20 [facility] ([place] Comment on above: Order Comment: Routi ne for 0501 the morning of patient admission. Performed By: #### M ORPH, CBC, DIFF #### [address] [address] Electrolyte Balance 7.0 mEq/L Normal 4.0-15.0 [facility] ([place] Comment on above: Order Comment: Routi ne for 0501 the morning of patient admission. Performed By: #### M ORPH, CBC, DIFF #### [place] [address] Glucose [Mass/Vol] 85 mg/dL Normal 82-115 [facility] ([place] Comment on above: Order Comment: Routi ne for 0501 the morning of patient admission. Performed By: #### M ORPH, CBC, DIFF #### [place] [address] Potassium [Moles/Vol] 4.1 mmol/L Normal 3.5-5.0 [facility] ([place] Comment on above: Order Comment: Routi ne for 0501 the morning of patient admission. Performed By: #### M ORPH, CBC, DIFF #### [place] [address] Sodium [Moles/Vol] 142 mmol/L Normal 136-145 [facility] ([place] Comment on above: Order Comment: Routi ne for 0501 the morning of patient admission. Performed By: #### M ORPH, CBC, DIFF #### [place] [address] Urea nitrogen [Mass/Vol] 12.0 mg/dL Normal 8.0-22.0 [facility] ([place] Comment on above: Order Comment: Routi ne for 0501 the morning of patient admission. Performed By: #### M ORPH, CBC, DIFF #### [place] [address] CBCon 02-05-2024 Erythrocyte distribution width (RBC) [Ratio] 16.1 % High 11.5-15.5 [facility] ([place] Comment on above: Order Comment: Routi ne for 0501 the morning of patient admission. Performed By: #### M ORPH, CBC, DIFF #### [place] [address] Hematocrit (Bld) [Volume fraction] 30.3 % Low 34.0-46.0 [facility] ([place] Comment on above: Order Comment: Routi ne for 0501 the morning of patient admission. Performed By: #### M ORPH, CBC, DIFF #### [place] [address] Hgb 10.0 G/dL Low 12.0-16.0 [facility] ([place] Comment on above: Order Comment: Routi ne for 0501 the morning of patient admission. Performed By: #### M ORPH, CBC, DIFF #### [place] [address] MCH (RBC) [Entitic mass] 30.6 pg Normal 27.0-33.0 [facility] ([place] Comment on above: Order Comment: Routi ne for 0501 the morning of patient admission. Performed By: #### M ORPH, CBC, DIFF #### [place] [address] MCHC 32.9 G/dL Normal 32.0-36.0 [facility] ([place]) Comment on above: Order Comment: Routi ne for 0501 the morning of patient admission. Performed By: #### M ORPH, CBC, DIFF #### [place] [id number] MCV (RBC) [Entitic vol] 93.0 fL Normal 80.0-99.0 [facility] ([place] Comment on above: Order Comment: Routi ne for 0501 the morning of patient admission. Performed By: #### M ORPH, CBC, DIFF #### [place] [id number] Platelet 208 10 3/mcL Normal 150-450 [facility] ([place] Comment on above: Order Comment: Routi ne for 0501 the morning of patient admission. Performed By: #### M ORPH, CBC, DIFF #### [place] [address] Platelet mean volume (Bld) [Entitic vol] 7.7 fL Normal 6.6-10.5 [facility] ([place]) Comment on above: Order Comment: Routi ne for 0501 the morning of patient admission. Performed By: #### M ORPH, CBC, DIFF #### [address] [address] RBC 3.26 10 6/mcL Low 4.10-5.30 [facility] ([place]) Comment on above: Order Comment: Routi ne for 0501 the morning of patient admission. Performed By: #### M ORPH, CBC, DIFF #### [address] [address] WBC 3.2 10 3/mcL Low 4.5-10.8 [facility] ([place]) Comment on above: Order Comment: Routi ne for 0501 the morning of patient admission. Performed By: #### M ORPH, CBC, DIFF #### [address] [id number] .Auto Diffon 02-04-2024 Basophil, Absolute 0.1 10 3/mcL Normal 0.0-0.2 [facility] ([place]) Comment on above: Performed By: #### M ORPH, CBC, DIFF #### [address] [address] Basophils/100 WBC (Bld) 1.4 % Normal 0.0-2.5 [facility] ([place]) Comment on above: Performed By: #### M ORPH, CBC, DIFF #### [address] [address] Eosinophil, Absolute 0.2 10 3/mcL Normal 0.0-0.4 [facility] ([place]) Comment on above: Performed By: #### M ORPH, CBC, DIFF #### [address] [address] Eosinophils/100 WBC (Bld) 3.5 % Normal 0.0-7.0 [facility] ([place]) Comment on above: Performed By: #### M ORPH, CBC, DIFF #### [address] [address] Lymphocyte, Absolute 0.8 10 3/mcL Normal 0.8-3.9 [facility] ([place] Comment on above: Performed By: #### M ORPH, CBC, DIFF #### [address] [address] Lymphocytes/100 WBC (Bld) 16.1 % Normal 10.0-50.0 [facility] ([place] Comment on above: Performed By: #### M ORPH, CBC, DIFF #### [address] [address] Monocyte, Absolute 0.5 10 3/mcL Normal 0.2-1.0 [facility] ([place]) Comment on above: Performed By: #### M ORPH, CBC, DIFF #### [address] [address] Monocytes/100 WBC (Bld) 11.2 % Normal 1.7-13.0 [facility] ([place] Comment on above: Performed By: #### M ORPH, CBC, DIFF #### [address] [address] Neutrophils/100 WBC (Bld) 67.8 % Normal 37.0-80.0 [facility] ([place] Comment on above: Performed By: #### M ORPH, CBC, DIFF #### [address] [address] .GFRon 02-04-2024 GFR 100 ml/min/1.73sqm Normal [facility] ([place]) Comment on above: Result Comment: GFR Population [...] By: #### M ORPH, CBC, DIFF #### [address] [address] GFR Non- 82 ml/min/1.73sqm Normal [facility] ([place] Comment on above: Result Comment: GFR Population [...] By: #### M ORPH, CBC, DIFF #### [address] [address] .NEUABSon 02-04-2024 Neutrophil, Absolute 3.2 10 3/mcL Normal 2.9-6.2 [facility] ([place] Comment on above: Performed By: #### M ORPH, CBC, DIFF #### [address] [address] BMPon 02-04-2024 BUN/Creatinine Ratio 16 ratio Normal 7-27 [facility] ([place]) Comment on above: Performed By: #### M ORPH, CBC, DIFF #### [address] [address] Calcium [Mass/Vol] 8.0 mg/dL Low 8.4-10.2 [facility] ([place]) Comment on above: Performed By: #### M ORPH, CBC, DIFF #### [address] [address] Chloride [Moles/Vol] 104 mmol/L Normal 98-107 [facility] ([place] Comment on above: Performed By: #### M ORPH, CBC, DIFF #### [address] [address] CO2 [Moles/Vol] 29 mmol/L Normal 23-31 [facility] ([place] Comment on above: Performed By: #### M ORPH, CBC, DIFF #### [address] [address] Creatinine [Mass/Vol] 0.68 mg/dL Normal 0.55-1.02 [facility] ([place]) Comment on above: Performed By: #### M ORPH, CBC, DIFF #### [address] [address] Electrolyte Balance 8.0 mEq/L Normal 4.0-15.0 [facility] ([place]) Comment on above: Performed By: #### M ORPH, CBC, DIFF #### [address] [address] Glucose [Mass/Vol] 86 mg/dL Normal 83-110 [facility] ([place] Comment on above: Performed By: #### M ORPH, CBC, DIFF #### [address] [address] Potassium [Moles/Vol] 3.9 mmol/L Normal 3.5-5.1 [facility] ([place] Comment on above: Performed By: #### M ORPH, CBC, DIFF #### [address] [address] Sodium [Moles/Vol] 141 mmol/L Normal 136-145 [facility] ([place] Comment on above: Performed By: #### M ORPH, CBC, DIFF #### [address] [address] Urea nitrogen [Mass/Vol] 11 mg/dL Normal 7-18 [facility] ([place] Comment on above: Performed By: #### M ORPH, CBC, DIFF #### [address] [address] CBCon 02-04-2024 Erythrocyte distribution width (RBC) [Ratio] 15.9 % High 11.5-14.5 [facility] ([place] Comment on above: Performed By: #### M ORPH, CBC, DIFF #### [address] [address] Hematocrit (Bld) [Volume fraction] 28.7 % Low 37.0-47.0 [facility] ([place] Comment on above: Performed By: #### M ORPH, CBC, DIFF #### [address] [address] Hgb 9.5 G/dL Low 12.0-16.0 [facility] ([place] Comment on above: Performed By: #### M ORPH, CBC, DIFF #### [address] [address] MCH (RBC) [Entitic mass] 31.1 pg Normal 27.0-31.2 [facility] ([place] Comment on above: Performed By: #### M ORPH, CBC, DIFF #### [address] [address] MCHC 33.1 G/dL Normal 33.0-37.0 [facility] ([place] Comment on above: Performed By: #### M ORPH, CBC, DIFF #### [place] [address] MCV (RBC) [Entitic vol] 93.9 fL Normal 80.0-94.0 [facility] ([place] Comment on above: Performed By: #### M ORPH, CBC, DIFF #### [address] [address] Platelet 187 10 3/mcL Normal 130-400 [facility] ([place] Comment on above: Performed By: #### M ORPH, CBC, DIFF #### [address] [address] Platelet mean volume (Bld) [Entitic vol] 7.4 fL Normal 7.4-10.4 [facility] ([place] Comment on above: Performed By: #### M ORPH, CBC, DIFF #### [address] [address] RBC 3.05 10 6/mcL Low 4.20-5.40 [facility] ([place] Comment on above: Performed By: #### M ORPH, CBC, DIFF #### [address] [address] WBC 4.8 10 3/mcL Normal 4.6-10.8 [facility] ([place] Comment on above: Performed By: #### M ORPH, CBC, DIFF #### [place] [address] LABORATORYOrdered By: SYSTEM SYSTEM on 02-04-2024 Basophil, [...] 02-04-2024 Magnesium [Mass/Vol] 2.0 mg/dL Normal 1.8-2.4 [facility] ([place] Comment on above: Performed By: #### M ORPH, CBC, DIFF #### [address] [address] No Panel Informationon 02-03 Microscopic examination of blood, culture Culture has been received in lab and is no growth to date. Routine cultures are held for 5 days. [facility] .Auto Diffon 02-03-2024 Basophil, Absolute 0.0 10 3/mcL Normal 0.0-0.2 [facility] ([place] Comment on above: Performed By: #### A MANJULA, CBC, ADIFF, GFR, BMP #### [address] [address] Basophils/100 WBC (Bld) 0.7 % Normal 0.0-2.5 [facility] ([place]) Comment on above: Performed By: #### A MANJULA, CBC, ADIFF, GFR, BMP #### [place] [id number] [place], [place] [address] Eosinophil, Absolute 0.1 10 3/mcL Normal 0.0-0.4 [facility] ([place] Comment on above: Performed By: #### A MANJULA, CBC, ADIFF, GFR, BMP #### [address] [address] Eosinophils/100 WBC (Bld) 2.4 % Normal 0.0-7.0 [facility] ([place] Comment on above: Performed By: #### A MANJULA, CBC, ADIFF, GFR, BMP #### [address] [address] Lymphocyte, Absolute 0.5 10 3/mcL Low 0.8-3.9 [facility] ([place] Comment on above: Performed By: #### A MANJULA, CBC, ADIFF, GFR, BMP #### [address] [address] Lymphocytes/100 WBC (Bld) 10.0 % Normal 10.0-50.0 [facility] ([place] Comment on above: Performed By: #### A MANJULA, CBC, ADIFF, GFR, BMP #### [address] [address] Monocyte, Absolute 0.5 10 3/mcL Normal 0.2-1.0 [facility] ([place] Comment on above: Performed By: #### A MANJULA, CBC, ADIFF, GFR, BMP #### [address] [address] Monocytes/100 WBC (Bld) 10.2 % Normal 1.7-13.0 [facility] ([place] Comment on above: Performed By: #### A MANJULA, CBC, ADIFF, GFR, BMP #### [address] [address] Neutrophils/100 WBC (Bld) 76.7 % Normal 37.0-80.0 [facility] ([place] Comment on above: Performed By: #### A MANJULA, CBC, ADIFF, GFR, BMP #### [address] [address] .GFRon 02-03-2024 GFR 103 ml/min/1.73sqm Normal [facility] ([place]) Comment on above: Result Comment: GFR Population [...] A MANJULA, CBC, ADIFF, GFR, BMP #### [address] [address] GFR Non- 85 ml/min/1.73sqm Normal [facility] ([place]) Comment on above: Result Comment: GFR Population [...] A MANJULA, CBC, ADIFF, GFR, BMP #### [address] [address] .NEUABSon 02-03-2024 Neutrophil, Absolute 3.6 10 3/mcL Normal 2.9-6.2 [facility] ([place] Comment on above: Performed By: #### A MANJULA, CBC, ADIFF, GFR, BMP #### [address] [address] BMPon 02-03-2024 BUN/Creatinine Ratio 17 ratio Normal 7-27 [facility] ([place]) Comment on above: Performed By: #### A MANJULA, CBC, ADIFF, GFR, BMP #### [address] [address] Calcium [Mass/Vol] 8.1 mg/dL Low 8.4-10.2 [facility] ([place]) Comment on above: Performed By: #### A MANJULA, CBC, ADIFF, GFR, BMP #### [address] [address] Chloride [Moles/Vol] 104 mmol/L Normal 98-107 [facility] ([place]) Comment on above: Performed By: #### A MANJULA, CBC, ADIFF, GFR, BMP #### [address] [address] CO2 [Moles/Vol] 29 mmol/L Normal 23-31 [facility] ([place]) Comment on above: Performed By: #### A MANJULA, CBC, ADIFF, GFR, BMP #### [address] [address] Creatinine [Mass/Vol] 0.66 mg/dL Normal 0.55-1.02 [facility] ([place] Comment on above: Performed By: #### A MANJULA, CBC, ADIFF, GFR, BMP #### [address] [address] Electrolyte Balance 8.0 mEq/L Normal 4.0-15.0 [facility] ([place]) Comment on above: Performed By: #### A MANJULA, CBC, ADIFF, GFR, BMP #### [address] [address] Glucose [Mass/Vol] 89 mg/dL Normal 83-110 [facility] ([place] Comment on above: Performed By: #### A MANJULA, CBC, ADIFF, GFR, BMP #### [address] [address] Potassium [Moles/Vol] 3.9 mmol/L Normal 3.5-5.1 [facility] ([place] Comment on above: Performed By: #### A MANJULA, CBC, ADIFF, GFR, BMP #### [address] [address] Sodium [Moles/Vol] 141 mmol/L Normal 136-145 [facility] ([place] Comment on above: Performed By: #### A MANJULA, CBC, ADIFF, GFR, BMP #### [address] [address] Urea nitrogen [Mass/Vol] 11 mg/dL Normal 7-18 [facility] ([place]) Comment on above: Performed By: #### A MANJULA, CBC, ADIFF, GFR, BMP #### [address] [address] CBCon 02-03-2024 Erythrocyte distribution width (RBC) [Ratio] 15.9 % High 11.5-14.5 [facility] ([place]) Comment on above: Performed By: #### M G, CBC, BMP, ADIFF, ANEU, GFR #### [address] [address] Hematocrit (Bld) [Volume fraction] 28.1 % Low 37.0-47.0 [facility] ([place]) Comment on above: Performed By: #### M G, CBC, BMP, ADIFF, ANEU, GFR #### [address] [address] Hgb 9.4 G/dL Low 12.0-16.0 [facility] ([place]) Comment on above: Performed By: #### M G, CBC, BMP, ADIFF, ANEU, GFR #### [address] [address] MCH (RBC) [Entitic mass] 31.1 pg Normal 27.0-31.2 [facility] ([place] Comment on above: Performed By: #### M G, CBC, BMP, ADIFF, ANEU, GFR #### [address] [address] MCHC 33.3 G/dL Normal 33.0-37.0 [facility] ([place] Comment on above: Performed By: #### M G, CBC, BMP, ADIFF, ANEU, GFR #### [address] [address] MCV (RBC) [Entitic vol] 93.4 fL Normal 80.0-94.0 [facility] ([place]) Comment on above: Performed By: #### M G, CBC, BMP, ADIFF, ANEU, GFR #### [address] [address] Platelet 187 10 3/mcL Normal 130-400 [facility] ([place]) Comment on above: Performed By: #### M G, CBC, BMP, ADIFF, ANEU, GFR #### [place] [id number] Platelet mean volume (Bld) [Entitic vol] 7.7 fL Normal 7.4-10.4 [facility] ([place]) Comment on above: Performed By: #### M G, CBC, BMP, ADIFF, ANEU, GFR #### [address] [address] RBC 3.01 10 6/mcL Low 4.20-5.40 [facility] ([place]) Comment on above: Performed By: #### M G, CBC, BMP, ADIFF, ANEU, GFR #### [address] [address] WBC 4.7 10 3/mcL Normal 4.6-10.8 [facility] ([place]) Comment on above: Performed By: #### M G, CBC, BMP, ADIFF, ANEU, GFR #### [address] [address] LABORATORYOrdered By: SYSTEM SYSTEM on 02-03-2024 Basophil, [...] 02-03-2024 Magnesium [Mass/Vol] 2.0 mg/dL Normal 1.8-2.4 [facility] ([place]) Comment on above: Performed By: #### A MANJULA, CBC, ADIFF, GFR, BMP #### [facility] [address] [place], [place] [address] No Panel Informationon 02-02 GSANA Gram Positive Cocci in pairs [facility] Microscopic examination of blood, culture Culture has been received in lab and is no growth to date. Routine cultures are held for 5 days. [facility] .GFRon 02-02-2024 GFR 105 ml/min/1.73sqm Normal [facility] ([place]) Comment on above: Result Comment: GFR Population [...] By: #### M ORPH, CBC, DIFF #### [facility] [address] [place] [address] GFR Non- 87 ml/min/1.73sqm Normal [facility] ([place]) Comment on above: Result Comment: GFR Population [...] mL/min/1.73 square meters Performed By: #### M ORPH CBC, DIFF #### [place] [address] .Manual Diffon 02-02-2024 Basophil %, Manual 0.0 % Normal 0.0-2.5 [facility] ([place]) Comment on above: Performed By: #### M ORADILENE CBC, DIFF #### [place] [address] Basophil, Abs Manual 0.0 10 3/mcL Normal 0.0-0.2 [facility] ([place]) Comment on above: Performed By: #### M ORADILENE CBC, DIFF #### [address] [address] Eosinophil %, Manual 0.0 % Normal 0.0-7.0 [facility] ([place] Comment on above: Performed By: #### M ORPH, CBC, DIFF #### [address] [address] Eosinophil, Abs Manual 0.0 10 3/mcL Normal 0.0-0.4 [facility] ([place] Comment on above: Performed By: #### M ORPH, CBC, DIFF #### [place] [id number] Lymphocyte %, Manual 13.0 % Normal 10.0-50.0 [facility] ([place] Comment on above: Performed By: #### M ORPH, CBC, DIFF #### [facility] [address] [place], [place] [address] Lymphocyte, Abs Manual 1.1 10 3/mcL Normal 0.8-3.9 [facility] ([place]) Comment on above: Performed By: #### M ORPH, CBC, DIFF #### [address] [address] Monocyte %, Manual 5.0 % Normal 1.7-13.0 [facility] ([place] Comment on above: Performed By: #### M ORPH, CBC, DIFF #### [address] [address] Monocyte, Abs Manual 0.4 10 3/mcL Normal 0.2-1.0 [facility] ([place] Comment on above: Performed By: #### M ORPH, CBC, DIFF #### [place] [id number] Neutrophil %, Manual 82.0 % High 37.0-80.0 [facility] ([place] Comment on above: Performed By: #### M ORPH, CBC, DIFF #### [place] [id number] Neutrophil, Abs Manual 6.8 10 3/mcL High 2.9-6.2 [facility] ([place] Comment on above: Performed By: #### M ORPH, CBC, DIFF #### [address] [address] Nucleated RBC 0.0 /100 WBC Normal [facility] ([place]) Comment on above: Performed By: #### M ORPH, CBC, DIFF #### [address] [address] .Morphon 02-02-2024 Anisocytosis Ql (Bld) 1+ Normal [facility] ([place] Comment on above: Performed By: #### M ORPH, CBC, DIFF #### [address] [address] Microcytosis 1+ Normal [facility] ([place] Comment on above: Performed By: #### M ORPH, CBC, DIFF #### [address] [address] Platelet Estimate Normal Normal [facility] ([place] Comment on above: Performed By: #### M ORPH, CBC, DIFF #### [place] [id number] [place] [address] BUN/Creatinine Ratio 23 ratio Normal 7-27 [facility] ([place] Comment on above: Performed By: #### U A #### [address] [address] Calcium [Mass/Vol] 8.1 mg/dL Low 8.4-10.2 [facility] ([place]) Comment on above: Performed By: #### U A #### [address] [address] Chloride [Moles/Vol] 103 mmol/L Normal 98-107 [facility] ([place]) Comment on above: Performed By: #### U A #### [address] [address] CO2 [Moles/Vol] 28 mmol/L Normal 23-31 [facility] ([place] Comment on above: Performed By: #### U A #### [address] [address] Creatinine [Mass/Vol] 0.65 mg/dL Normal 0.55-1.02 [facility] ([place] Comment on above: Performed By: #### U A #### [address] [address] Electrolyte Balance 8.0 mEq/L Normal 4.0-15.0 [facility] ([place]) Comment on above: Performed By: #### U A #### [address] [address] Glucose [Mass/Vol] 98 mg/dL Normal 83-110 [facility] ([place]) Comment on above: Performed By: #### U A #### [address] [address] Potassium [Moles/Vol] 3.7 mmol/L Normal 3.5-5.1 [facility] ([place] Comment on above: Performed By: #### U A #### [address] [address] Sodium [Moles/Vol] 139 mmol/L Normal 136-145 [facility] ([place] Comment on above: Performed By: #### U A #### [address] [address] Urea nitrogen [Mass/Vol] 15 mg/dL Normal 7-18 [facility] ([place]) Comment on above: Performed By: #### U A #### [address] [address] CBCon 02-02-2024 Erythrocyte distribution width (RBC) [Ratio] 16.1 % High 11.5-14.5 [facility] ([place] Comment on above: Order Comment: QNSQu estionable results Performed By: #### M ORPH, CBC, DIFF #### [address] [address] Platelet 187 10 3/mcL Normal 130-400 [facility] ([place] Comment on above: Order Comment: QNSQu estionable results Performed By: #### M ORPH, CBC, DIFF #### [address] [address] Platelet mean volume (Bld) [Entitic vol] 7.7 fL Normal 7.4-10.4 [facility] ([place]) Comment on above: Order Comment: QNSQu estionable results Performed By: #### M ORPH, CBC, DIFF #### [address] [address] Hematocrit (Bld) [Volume fraction] 31.1 % Low 37.0-47.0 [facility] ([place] Comment on above: Order Comment: QNSQu estionable results Performed By: #### M ORPH, CBC, DIFF #### [address] [address] Hgb 10.3 G/dL Low 12.0-16.0 [facility] ([place] Comment on above: Order Comment: QNSQu estionable results Performed By: #### M ORPH, CBC, DIFF #### [address] [address] MCH (RBC) [Entitic mass] 31.1 pg Normal 27.0-31.2 [facility] ([place] Comment on above: Order Comment: QNSQu estionable results Performed By: #### M ORPH, CBC, DIFF #### [place] [address] MCHC 33.1 G/dL Normal 33.0-37.0 [facility] ([place] Comment on above: Order Comment: QNSQu estionable results Performed By: #### M ORPH, CBC, DIFF #### [place] [address] MCV (RBC) [Entitic vol] 94.0 fL Normal 80.0-94.0 [facility] ([place] Comment on above: Order Comment: QNSQu estionable results Performed By: #### M ORPH, CBC, DIFF #### [place] [address] RBC 3.30 10 6/mcL Low 4.20-5.40 [facility] ([place] Comment on above: Order Comment: QNSQu estionable results Performed By: #### M ORPH, CBC, DIFF #### [place] [address] WBC 8.4 10 3/mcL Normal 4.6-10.8 [facility] ([place] Comment on above: Order Comment: QNSQu estionable results Performed By: #### M ORPH, CBC, DIFF #### [place] [address] CT ABDOMEN/PELVIS W/CONTRAST on 02-02-2024 CT ABDOMEN/PELVIS [...] 02/02/2024 5:34:24 PM Ordering Provider: KUMAR Woody [facility] ([place]) LABORATORYOrdered By: SYSTEM SYSTEM on 02-02-2024 Anisocytosis [...] 02-02-2024 Magnesium [Mass/Vol] 2.0 mg/dL Normal 1.8-2.4 [facility] ([place]) Comment on above: Performed By: #### U A #### [place] [id number] [place], [place] [address] No Panel Informationon 02-01 Enterococcus faecalis Enterococcus faecalis [facility] GSAER Gram Positive Cocci in pairs [facility] Microscopic examination of blood, culture Enterococcus faecalis Isolated from aerobe bottle only. Refer to previous culture for susceptibility. [id number] collected 01-31-24 [facility] .GFRon 02-01-2024 GFR Non- 67 ml/min/1.73sqm Normal [facility] ([place]) Comment on above: Result Comment: GFR Population [...] meters Performed By: #### U A #### [address] [address] GFR 82 ml/min/1.73sqm Normal [facility] ([place]) Comment on above: Result Comment: GFR Population [...] meters Performed By: #### U A #### [address] [address] .Manual Diffon 02-01-2024 Neutrophil, Abs Manual 7.1 10 3/mcL High 2.9-6.2 [facility] ([place]) Comment on above: Performed By: #### U A #### [address] [address] Bands 5.0 % Normal 0.0-5.0 [facility] ([place] Comment on above: Performed By: #### U A #### [address] [address] Basophil %, Manual 1.0 % Normal 0.0-2.5 [facility] ([place] Comment on above: Performed By: #### U A #### [address] [address] Basophil, Abs Manual 0.1 10 3/mcL Normal 0.0-0.2 [facility] ([place] Comment on above: Performed By: #### U A #### [address] [address] Eosinophil %, Manual 1.0 % Normal 0.0-7.0 [facility] ([place] Comment on above: Performed By: #### U A #### [address] [address] Eosinophil, Abs Manual 0.1 10 3/mcL Normal 0.0-0.4 [facility] ([place] Comment on above: Performed By: #### U A #### [address] [address] Lymphocyte %, Manual 9.0 % Low 10.0-50.0 [facility] ([place] Comment on above: Performed By: #### U A #### [address] [address] Lymphocyte, Abs Manual 0.8 10 3/mcL Normal 0.8-3.9 [facility] ([place] Comment on above: Performed By: #### U A #### [address] [address] Monocyte %, Manual 5.0 % Normal 1.7-13.0 [facility] ([place] Comment on above: Performed By: #### U A #### [address] [address] Monocyte, Abs Manual 0.4 10 3/mcL Normal 0.2-1.0 [facility] ([place] Comment on above: Performed By: #### U A #### [address] [address] Neutrophil %, Manual 79.0 % Normal 37.0-80.0 [facility] ([place] Comment on above: Performed By: #### U A #### [address] [address] Nucleated RBC 0.0 /100 WBC Normal [facility] ([place] Comment on above: Performed By: #### U A #### [address] [address] .Morphon 02-01-2024 Ovalocytes 1+ Normal [facility] ([place] Comment on above: Performed By: #### U A #### [address] [address] Platelet Estimate Normal Normal [facility] ([place] Comment on above: Performed By: #### U A #### [address] [address] Toxic Gran 1+ Normal [facility] ([place] Comment on above: Performed By: #### U A #### [address] [address] Vacuolated Neutrophils 1+ Normal [facility] ([place] Comment on above: Performed By: #### U A #### [address] [address] CBCon 02-01-2024 Erythrocyte distribution width (RBC) [Ratio] 16.1 % High 11.5-14.5 [facility] ([place] Comment on above: Performed By: #### U A #### [address] [address] Hematocrit (Bld) [Volume fraction] 31.1 % Low 37.0-47.0 [facility] ([place] Comment on above: Performed By: #### U A #### [address] [address] Hgb 10.2 G/dL Low 12.0-16.0 [facility] ([place] Comment on above: Performed By: #### U A #### [address] [address] MCH (RBC) [Entitic mass] 30.9 pg Normal 27.0-31.2 [facility] ([place] Comment on above: Performed By: #### U A #### [address] [address] MCHC 32.9 G/dL Low 33.0-37.0 [facility] ([place] Comment on above: Performed By: #### U A #### [address] [address] MCV (RBC) [Entitic vol] 93.9 fL Normal 80.0-94.0 [facility] ([place] Comment on above: Performed By: #### U A #### [address] [address] Platelet 177 10 3/mcL Normal 130-400 [facility] ([place] Comment on above: Performed By: #### U A #### [address] [address] Platelet mean volume (Bld) [Entitic vol] 7.9 fL Normal 7.4-10.4 [facility] ([place] Comment on above: Performed By: #### U A #### [address] [address] RBC 3.31 10 6/mcL Low 4.20-5.40 [facility] ([place] Comment on above: Performed By: #### U A #### [address] [address] WBC 8.5 10 3/mcL Normal 4.6-10.8 [facility] ([place] Comment on above: Performed By: #### U A #### [address] [address] CMPon 02-01-2024 Albumin Level 2.5 G/dL Low 3.4-4.8 [facility] ([place] Comment on above: Performed By: #### U A #### [address] [address] Albumin/Globulin [Mass ratio] 0.6 {ratio} Low 1.1-2.5 [facility] ([place] Comment on above: Performed By: #### U A #### [address] [address] ALP [Catalytic activity/Vol] 90 U/L Normal 40-135 [facility]) Comment on above: Performed By: #### U A #### [address] [address] ALT [Catalytic activity/Vol] 41 U/L Normal 14-59 [facility]) Comment on above: Performed By: #### U A #### [address] [address] AST [Catalytic activity/Vol] 39 U/L Normal 10-40 [facility] ([place] Comment on above: Performed By: #### U A #### [address] [address] Bili Total 0.6 mg/dL Normal 0.2-1.0 [facility] ([place] Comment on above: Result Comment: Use of this assay is not recommended for patients undergoing treatment with eltrombopag due to the potential for falsely elevated results. Performed By: #### U A #### [address] [address] BUN/Creatinine Ratio 21 ratio Normal 7-27 [facility] [facility] ([place] Comment on above: Performed By: #### U A #### [address] [address] Calcium [Mass/Vol] 8.2 mg/dL Low 8.4-10.2 [facility] ([place]) Comment on above: Performed By: #### U A #### [address] [address] Chloride [Moles/Vol] 99 mmol/L Normal 98-107 [facility] ([place]) Comment on above: Performed By: #### U A #### [address] [address] CO2 [Moles/Vol] 26 mmol/L Normal 23-31 [facility] ([place]) Comment on above: Performed By: #### U A #### [address] [address] Creatinine [Mass/Vol] 0.81 mg/dL Normal 0.55-1.02 [facility] ([place]) Comment on above: Performed By: #### U A #### [address] [address] Electrolyte Balance 12.0 mEq/L Normal 4.0-15.0 [facility] ([place]) Comment on above: Performed By: #### U A #### [address] [address] Globulin 4.1 G/dL Normal [facility] ([place]) Comment on above: Performed By: #### U A #### [address] [address] Glucose [Mass/Vol] 121 mg/dL High 83-110 [facility] ([place]) Comment on above: Performed By: #### U A #### [address] [address] Potassium [Moles/Vol] 4.3 mmol/L Normal 3.5-5.1 [facility] ([place]) Comment on above: Performed By: #### U A #### [address] [address] Sodium [Moles/Vol] 137 mmol/L Normal 136-145 [facility] ([place]) Comment on above: Performed By: #### U A #### [id number] [place], [place] [address] Total Protein 6.6 G/dL Normal 6.4-8.2 [facility] ([place]) Comment on above: Performed By: #### U A #### [id number] [place], [place] [address] Urea nitrogen [Mass/Vol] 17 mg/dL Normal 7-18 [facility] ([place]) Comment on above: Performed By: #### U A #### [id number] [place], [place] [address] LABORATORYOrdered By: SYSTEM SYSTEM on 02-01-2024 Albumin [...] 02-01-2024 Magnesium [Mass/Vol] 2.0 mg/dL Normal 1.8-2.4 [facility] ([place]) Comment on above: Performed By: #### U A #### [address] [address] No Panel Informationon 01-31 GSAER Gram Positive Cocci in pairs [facility] GSANA Gram Positive Cocci in pairs [facility] Microscopic examination of blood, culture Culture has been received in lab and is no growth to date. Routine cultures are held for 5 days. [facility] .Auto Diffon 01-31-2024 Basophil, Absolute 0.0 10 3/mcL Normal 0.0-0.2 [facility] ([place]) Comment on above: Performed By: #### A MANJULA, CBC, ADIFF, GFR, BMP #### [address] [address] Basophils/100 WBC (Bld) 0.3 % Normal 0.0-2.5 [facility] ([place]) Comment on above: Performed By: #### A MANJULA, CBC, ADIFF, GFR, BMP #### [address] [address] Eosinophil, Absolute 0.0 10 3/mcL Normal 0.0-0.4 [facility] ([place]) Comment on above: Performed By: #### A MANJULA, CBC, ADIFF, GFR, BMP #### [address] [address] Eosinophils/100 WBC (Bld) 1.0 % Normal 0.0-7.0 [facility] ([place]) Comment on above: Performed By: #### A MANJULA, CBC, ADIFF, GFR, BMP #### [address] [address] Lymphocyte, Absolute 1.0 10 3/mcL Normal 0.8-3.9 [facility] ([place]) Comment on above: Performed By: #### A MANJULA, CBC, ADIFF, GFR, BMP #### [address] [address] Lymphocytes/100 WBC (Bld) 13.1 % Normal 10.0-50.0 [facility] ([place]) Comment on above: Performed By: #### A MANJULA, CBC, ADIFF, GFR, BMP #### [address] [address] Monocyte, Absolute 0.6 10 3/mcL Normal 0.2-1.0 [facility] ([place]) Comment on above: Performed By: #### A MANJULA, CBC, ADIFF, GFR, BMP #### [address] [address] Monocytes/100 WBC (Bld) 8.7 % Normal 1.7-13.0 [facility] ([place]) Comment on above: Performed By: #### A MANJULA, CBC, ADIFF, GFR, BMP #### [address] [address] Neutrophils/100 WBC (Bld) 76.7 % Normal 37.0-80.0 [facility] ([place]) Comment on above: Performed By: #### A MANJULA, CBC, ADIFF, GFR, BMP #### [address] [address] .GFRon 01-31-2024 GFR 98 ml/min/1.73sqm Normal [facility] ([place]) Comment on above: Result Comment: GFR Population [...] A MANJULA, CBC, ADIFF, GFR, BMP #### [address] [address] GFR Non- 81 ml/min/1.73sqm Normal [facility] ([place]) Comment on above: Result Comment: GFR Population [...] A MANJULA, CBC, ADIFF, GFR, BMP #### [address] [address] .NEUABSon 01-31-2024 Neutrophil, Absolute 5.9 10 3/mcL Normal 2.9-6.2 [facility] ([place]) Comment on above: Performed By: #### A MANJULA, CBC, ADIFF, GFR, BMP #### [address] [address] BCIDon 01-31-2024 Acinetobacter camryn-baumanii complex Not detected Normal Not Detected [facility] ([place]) Comment on above: Performed By: #### M ORPH, CBC, DIFF #### [address] [place] [address] Bacteroides fragilis Not detected Normal Not Detected [facility] ([place]) Comment on above: Performed By: #### M ORPH, CBC, DIFF #### [place] [address] BCID Comment See Comment Normal [facility] ([place]) Comment on above: Result Comment: Anti microbial resistance can occur via multiple mechanisms. A "Not Detected" result for antimicrobial resistance gene(s) does not indicate antimicrobial susceptibility. Culture identification and susceptibility results to follow. If BCID panel was negative ("Not Detected") for all targets, this does not exclude a blood stream infection. Our blood culture system detected growth. Culture identification and susceptibility testing (if appropriate) to follow. Performed By: #### M ORPH, CBC, DIFF #### [address] [place] [address] Kasandra albicans Not detected Normal Not Detected [facility] ([place]) Comment on above: Performed By: #### M ORPH, CBC, DIFF #### [address] [address] Kasandra auris Not detected Normal Not Detected [facility] ([place]) Comment on above: Performed By: #### M ORPH, CBC, DIFF #### [place] [address] Kasandra glabrata Not detected Normal Not Detected [facility] ([place]) Comment on above: Performed By: #### M ORPH, CBC, DIFF #### [place] [address] Kasandra krusei Not detected Normal Not Detected [facility] ([place] Comment on above: Performed By: #### M ORPH, CBC, DIFF #### [place] [address] Kasandra parapsilosis Not detected Normal Not Detected [facility] ([place] Comment on above: Performed By: #### M ORPH, CBC, DIFF #### [place] [address] Kasandra tropicalis Not detected Normal Not Detected [facility] ([place] Comment on above: Performed By: #### M ORPH, CBC, DIFF #### [place] [address] Cryptococcus neoformans-gattii Not detected Normal Not Detected [facility] ([place] Comment on above: Performed By: #### M ORPH, CBC, DIFF #### [place] [address] CTX-M (ESBL) Not Applicable Normal Not Detected [facility] ([place] Comment on above: Performed By: #### M ORPH, CBC, DIFF #### [place] [address] E. Coli Not detected Normal Not Detected [facility] ([place] Comment on above: Performed By: #### M ORPH, CBC, DIFF #### [place] [address] Enterobacter cloacae Complex Not detected Normal Not Detected [facility] ([place] Comment on above: Performed By: #### M ORPH, CBC, DIFF #### [place] [address] Enterobacterales Not detected Normal Not Detected [facility] ([place] Comment on above: Performed By: #### M ORPH, CBC, DIFF #### [place] [address] Enterococcus faecalis Detected Abnormal Not Detected [facility] ([place]) Comment on above: Performed By: #### M ORPH, CBC, DIFF #### [facility] [address] [place] [address] Enterococcus faecium Not detected Normal Not Detected [facility] ([place]) Comment on above: Performed By: #### M ORPH, CBC, DIFF #### [facility] [address] [place] [address] Haemophilus influenzae Not detected Normal Not Detected [facility] ([place]) Comment on above: Performed By: #### M ORPH, CBC, DIFF #### [facility] [address] [place] [address] IMP (Carbapenemase) Not Applicable Normal Not Detected [facility] ([place] Comment on above: Performed By: #### M ORPH, CBC, DIFF #### [facility] [address] [place] [address] Klebsiella aerogenes Not detected Normal Not Detected [facility] ([place] Comment on above: Performed By: #### M ORPH, CBC, DIFF #### [facility] [address] [place], [place] [address] Klebsiella oxytoca Not detected Normal Not Detected [facility] ([place] Comment on above: Performed By: #### M ORPH, CBC, DIFF #### [facility] [address] [place] [address] Klebsiella pneumoniae group Not detected Normal Not Detected [facility] ([place] Comment on above: Performed By: #### M ORPH, CBC, DIFF #### [facility] [address] [place] [address] KPC (Carbapenemase) Not Applicable Normal Not Detected [facility] ([place] Comment on above: Performed By: #### M ORPH, CBC, DIFF #### [facility] [address] [place] [address] Listeria monocytogenes Not detected Normal Not Detected [facility] ([place] Comment on above: Performed By: #### M ORPH, CBC, DIFF #### [facility] [address] [place] [address] MCR-1 (Colistin Resistance) Not Applicable Normal Not Detected [facility] ([place]) Comment on above: Performed By: #### M ORPH, CBC, DIFF #### [facility] [address] [place] [address] Mec A/C Not Applicable Normal Not Detected [facility] ([place] Comment on above: Performed By: #### M ORPH, CBC, DIFF #### [place] [address] Mec A/C-MREJ (MRSA) Not Applicable Normal Not Detected [facility] ([place] Comment on above: Performed By: #### M ORPH, CBC, DIFF #### [place] [address] NDM (Carbapenemase) Not Applicable Normal Not Detected [facility] ([place] Comment on above: Performed By: #### M ORPH, CBC, DIFF #### [place] [address] Neisseria meningitidis (Encapsalated) Not detected Normal Not Detected [facility] ([place] Comment on above: Performed By: #### M ORPH, CBC, DIFF #### [place] [address] OXA-48 like (Carbapenemase) Not Applicable Normal Not Detected [facility] ([place] Comment on above: Performed By: #### M ORPH, CBC, DIFF #### [place] [address] Proteus Not detected Normal Not Detected [facility] ([place] Comment on above: Performed By: #### M ORPH, CBC, DIFF #### [place] [address] Pseudomonas aeruginosa Not detected Normal Not Detected [facility] ([place]) Comment on above: Performed By: #### M ORPH, CBC, DIFF #### [place] [address] S. agalactiae Org specific cx Ql (Vag fld) Not detected Normal Not Detected [facility] ([place] Comment on above: Performed By: #### M ORPH, CBC, DIFF #### [place] [address] Salmonella species Not detected Normal Not Detected [facility] ([place] Comment on above: Performed By: #### M ORPH, CBC, DIFF #### [facility] [address] [place] [address] Serratia marcescens Not detected Normal Not Detected [facility] ([place] Comment on above: Performed By: #### M ORPH, CBC, DIFF #### [facility] [address] [place] [address] Staphylococcus Not detected Normal Not Detected [facility] ([place] Comment on above: Performed By: #### M ORPH, CBC, DIFF #### [address] [address] Staphylococcus aureus Not detected Normal Not Detected [facility] ([place]) Comment on above: Result Comment: If S taphylococcus aureus is "Detected", an Infectious Disease physician consult is required on identification. Performed By: #### M ORPH, CBC, DIFF #### [address] [address] Staphylococcus epidermidis Not detected Normal Not Detected [facility] ([place] Comment on above: Performed By: #### M ORPH, CBC, DIFF #### [address] [address] Staphylococcus lugdunensis Not detected Normal Not Detected [facility] ([place] Comment on above: Performed By: #### M ORPH, CBC, DIFF #### [address] [address] Stenotrophomonas maltophilia Not detected Normal Not Detected [facility] ([place] Comment on above: Performed By: #### M ORPH, CBC, DIFF #### [address] [address] Streptococcus Not detected Normal Not Detected [facility] ([place] Comment on above: Performed By: #### M ORPH, CBC, DIFF #### [address] [address] Streptococcus pneumoniae Not detected Normal Not Detected [facility] ([place] Comment on above: Performed By: #### M ORPH, CBC, DIFF #### [facility] [address] [place] [address] Streptococcus pyogenes Not detected Normal Not Detected [facility] ([place] Comment on above: Performed By: #### M ORPH, CBC, DIFF #### [facility] [address] [place] [address] Van A/B Not detected Normal Not Detected [facility] ([place]) Comment on above: Performed By: #### M ORPH, CBC, DIFF #### [address] [address] VIM (Carbapenemase) Not Applicable Normal Not Detected [facility] ([place]) Comment on above: Performed By: #### M ORPH, CBC, DIFF #### [address] [address] CBCon 01-31-2024 Erythrocyte distribution width (RBC) [Ratio] 14.5 % Normal 11.5-14.5 [facility] ([place]) Comment on above: Performed By: #### A MANJULA, CBC, ADIFF, GFR, BMP #### [address] [address] Hematocrit (Bld) [Volume fraction] 30.6 % Low 37.0-47.0 [facility] ([place]) Comment on above: Performed By: #### A MANJULA, CBC, ADIFF, GFR, BMP #### [address] [address] Hgb 9.9 G/dL Low 12.0-16.0 [facility] ([place]) Comment on above: Performed By: #### A MANJULA, CBC, ADIFF, GFR, BMP #### [address] [address] MCH (RBC) [Entitic mass] 30.6 pg Normal 27.0-31.2 [facility] ([place]) Comment on above: Performed By: #### A MANJULA, CBC, ADIFF, GFR, BMP #### [address] [address] MCHC 32.6 G/dL Low 33.0-37.0 [facility] ([place]) Comment on above: Performed By: #### A MANJULA, CBC, ADIFF, GFR, BMP #### [address] [address] MCV (RBC) [Entitic vol] 93.6 fL Normal 80.0-94.0 [facility] ([place]) Comment on above: Performed By: #### A MANJULA, CBC, ADIFF, GFR, BMP #### [address] [address] Platelet 229 10 3/mcL Normal 130-400 [facility] ([place]) Comment on above: Performed By: #### A MANJULA, CBC, ADIFF, GFR, BMP #### [address] [address] Platelet mean volume (Bld) [Entitic vol] 7.6 fL Normal 7.4-10.4 [facility] ([place]) Comment on above: Performed By: #### A MANJULA, CBC, ADIFF, GFR, BMP #### [address] [address] RBC 3.27 10 6/mcL Low 4.20-5.40 [facility] ([place]) Comment on above: Performed By: #### A MANJULA, CBC, ADIFF, GFR, BMP #### [address] [address] WBC 7.6 10 3/mcL Normal 4.6-10.8 [facility] ([place]) Comment on above: Performed By: #### A MANJULA, CBC, ADIFF, GFR, BMP #### [address] [address] CMPon 01-31-2024 Albumin Level 2.4 G/dL Low 3.4-4.8 [facility] ([place]) Comment on above: Performed By: #### A MANJULA, CBC, ADIFF, GFR, BMP #### [address] [address] Albumin/Globulin [Mass ratio] 0.6 {ratio} Low 1.1-2.5 [facility] ([place]) Comment on above: Performed By: #### A MANJULA, CBC, ADIFF, GFR, BMP #### [address] [address] ALP [Catalytic activity/Vol] 88 U/L Normal 40-135 [facility] ([place]) Comment on above: Performed By: #### A MANJULA, CBC, ADIFF, GFR, BMP #### [address] [address] ALT [Catalytic activity/Vol] 36 U/L Normal 14-59 [facility] ([place]) Comment on above: Performed By: #### A MANJULA, CBC, ADIFF, GFR, BMP #### [address] [address] AST [Catalytic activity/Vol] 24 U/L Normal 10-40 [facility] ([place]) Comment on above: Performed By: #### A MANJULA, CBC, ADIFF, GFR, BMP #### [address] [address] Bili Total 0.6 mg/dL Normal 0.2-1.0 [facility] ([place]) Comment on above: Result Comment: Use of this assay is not recommended for patients undergoing treatment with eltrombopag due to the potential for falsely elevated results. Performed By: #### A MANJULA, CBC, ADIFF, GFR, BMP #### [address] [address] BUN/Creatinine Ratio 17 ratio Normal 7-27 [facility] ([place]) Comment on above: Performed By: #### A MANJULA, CBC, ADIFF, GFR, BMP #### [address] [address] Calcium [Mass/Vol] 8.2 mg/dL Low 8.4-10.2 [facility] ([place]) Comment on above: Performed By: #### A MANJULA, CBC, ADIFF, GFR, BMP #### [address] [address] Chloride [Moles/Vol] 103 mmol/L Normal 98-107 [facility] ([place]) Comment on above: Performed By: #### A MANJULA, CBC, ADIFF, GFR, BMP #### [address] [address] CO2 [Moles/Vol] 31 mmol/L Normal 23-31 [facility] ([place]) Comment on above: Performed By: #### A MANJULA, CBC, ADIFF, GFR, BMP #### [place] [id number] Creatinine [Mass/Vol] 0.69 mg/dL Normal 0.55-1.02 [facility] ([place]) Comment on above: Performed By: #### A MANJULA, CBC, ADIFF, GFR, BMP #### [place] [id number] Electrolyte Balance 6.0 mEq/L Normal 4.0-15.0 [facility] ([place]) Comment on above: Performed By: #### A MANJULA, CBC, ADIFF, GFR, BMP #### [place] [address] Globulin 4.1 G/dL Normal [facility] ([place]) Comment on above: Performed By: #### A MANJULA, CBC, ADIFF, GFR, BMP #### [place] [address] Glucose [Mass/Vol] 112 mg/dL High 83-110 [facility] ([place]) Comment on above: Performed By: #### A MANJULA, CBC, ADIFF, GFR, BMP #### [place] [address] Potassium [Moles/Vol] 4.3 mmol/L Normal 3.5-5.1 [facility] ([place]) Comment on above: Performed By: #### A MANJULA, CBC, ADIFF, GFR, BMP #### [place] [address] Sodium [Moles/Vol] 140 mmol/L Normal 136-145 [facility] ([place]) Comment on above: Performed By: #### A MANJULA, CBC, ADIFF, GFR, BMP #### [place] [address] Total Protein 6.5 G/dL Normal 6.4-8.2 [facility] ([place]) Comment on above: Performed By: #### A MANJULA, CBC, ADIFF, GFR, BMP #### [place] [id number] Urea nitrogen [Mass/Vol] 12 mg/dL Normal 7-18 [facility] ([place]) Comment on above: Performed By: #### A MANJULA, CBC, ADIFF, GFR, BMP #### [address] [address] CVFLURVon 01-31-2024 FLU A PCR Negative Normal Negative [facility] ([place]) Comment on above: Performed By: #### A MANJULA, CBC, ADIFF, GFR, BMP #### [address] [address] FLU B PCR Negative Normal Negative [facility] ([place]) Comment on above: Performed By: #### A MANJULA, CBC, ADIFF, GFR, BMP #### [place] [address] RSV PCR Negative Normal Negative [facility] ([place]) Comment on above: Performed By: #### A MANJULA, CBC, ADIFF, GFR, BMP #### [place] [address] SARS-CoV-2 (COVID-19) RNA FAUSTO+probe Ql (Unsp spec) Negative Normal Negative [facility] ([place]) Comment on above: Result Comment: Resu lts [...] A MANJULA, CBC, ADIFF, GFR, BMP #### [address] [address] LABORATORYOrdered By: SYSTEM SYSTEM on 01-31-2024 Albumin [...] [#/Vol] 7.6 103/mcL Normal 4.6 - 10.8 10^3/mcL AO Workflow SS LABORATORYOrdered By: Kavin Chao on [...] resistance can occur via multiple mechanisms. A "Not Detected" result for antimicrobial resistance gene(s) does not indicate antimicrobial susceptibility. Culture identification and susceptibility results to follow. If BCID panel was negative ("Not Detected") for all targets, this does not exclude [...] Interpretive Data: I f Staphylococcus aureus is "Detected", an Infectious Disease physician consult is required [...] Lactic Acid Lvl 1.3 mmol/L Normal 0.4-2.0 [facility] ([place]) Comment on above: Performed By: #### A MANJULA, CBC, ADIFF, GFR, BMP #### [facility] [address] [place], [place] [address] No Panel Informationon 01-30 GSAER Gram Positive Cocci in pairs [facility] GSANA Gram Positive Cocci in pairs [facility] Microscopic examination of blood, culture Enterococcus faecalis Isolated from aerobe and anaerobe bottles. ASHLEIGH to follow [facility] Microscopic examination of blood, culture Enterococcus faecalis Isolated from aerobe and anaerobe bottles. Final report to follow. [facility] XR CHEST 2 VIEWSon 4 XR CHEST 2 VIEWS ORIGINAL EXAMINATION: TWO [...] Date: 01/31/2024 12:50:22 AM Ordering Provider: MALGORZATA Woody [facility] ([place]) LABORATORYOrdered By: Beckie Alvarez on 01-30-2024 Appearance [...] SS UAon 01-30-2024 Color (U) Yellow Normal [facility] ([place]) Comment on above: Performed By: #### A MANJULA, CBC, ADIFF, GFR, BMP #### [address] [address] Glucose (U) [Mass/Vol] Negative Normal Negative [facility] ([place]) Comment on above: Performed By: #### A MANJULA, CBC, ADIFF, GFR, BMP #### [address] [address] Ketones Ql (U) Negative Normal Negative [facility] ([place] Comment on above: Performed By: #### A MANJULA, CBC, ADIFF, GFR, BMP #### [address] [address] UA Appear Clear Normal Clear [facility] ([place]) Comment on above: Performed By: #### A MANJULA, CBC, ADIFF, GFR, BMP #### [address] [address] UA Blood Negative Normal Negative [facility] ([place]) Comment on above: Performed By: #### A MANJULA, CBC, ADIFF, GFR, BMP #### [address] [address] UA Leuk Est Negative Normal Negative [facility] ([place]) Comment on above: Performed By: #### A MANJULA, CBC, ADIFF, GFR, BMP #### [address] [address] UA Nitrite Negative Normal Negative [facility] ([place]) Comment on above: Performed By: #### A MANJULA, CBC, ADIFF, GFR, BMP #### [address] [address] UA pH 7.0 Normal 5.0 - 8.0 [facility] ([place]) Comment on above: Performed By: #### A MANJULA, CBC, ADIFF, GFR, BMP #### [place] [address] UA Protein Negative Normal Negative [facility] ([place] Comment on above: Performed By: #### A MANJULA, CBC, ADIFF, GFR, BMP #### [place] [address] UA Spec Grav 1.020 Normal 1.015-1.02 5 [facility] ([place]) Comment on above: Performed By: #### A MANJULA, CBC, ADIFF, GFR, BMP #### [place] [address] UA Specimen Type Straight Cath Normal [facility] ([place]) Comment on above: Performed By: #### A MANJULA, CBC, ADIFF, GFR, BMP #### [place] [id number] UA Urobilinogen 2.0 E.U./dL Abnormal 0.2-1.0 [facility] ([place]) Comment on above: Performed By: #### A MANJULA, CBC, ADIFF, GFR, BMP #### [place] [address] Urobilinogen (U) [Mass/Vol] Negative Normal Negative [facility] ([place] Comment on above: Performed By: #### A MANJULA, CBC, ADIFF, GFR, BMP #### [place] [address] .Auto Diffon 01-25-2024 Basophil, Absolute 0.0 10 3/mcL Normal 0.0-0.2 [facility] ([place]) Comment on above: Performed By: #### A MANJULA, CBC, ADIFF, GFR, BMP #### [address] [address] Basophils/100 WBC (Bld) 0.9 % Normal 0.0-2.5 [facility] ([place]) Comment on above: Performed By: #### A MANJULA, CBC, ADIFF, GFR, BMP #### [address] [address] Eosinophil, Absolute 0.0 10 3/mcL Normal 0.0-0.4 [facility] ([place]) Comment on above: Performed By: #### A MANJULA, CBC, ADIFF, GFR, BMP #### [address] [address] Eosinophils/100 WBC (Bld) 0.5 % Normal 0.0-7.0 [facility] ([place]) Comment on above: Performed By: #### A MANJULA, CBC, ADIFF, GFR, BMP #### [address] [address] Lymphocyte, Absolute 0.9 10 3/mcL Normal 0.8-3.9 [facility] ([place] Comment on above: Performed By: #### A MANJULA, CBC, ADIFF, GFR, BMP #### [address] [address] Lymphocytes/100 WBC (Bld) 16.2 % Normal 10.0-50.0 [facility] ([place]) Comment on above: Performed By: #### A MANJULA, CBC, ADIFF, GFR, BMP #### [address] [address] Monocyte, Absolute 0.6 10 3/mcL Normal 0.2-1.0 [facility] ([place] Comment on above: Performed By: #### A MANJULA, CBC, ADIFF, GFR, BMP #### [address] [address] Monocytes/100 WBC (Bld) 11.9 % Normal 1.7-13.0 [facility] ([place]) Comment on above: Performed By: #### A MANJULA, CBC, ADIFF, GFR, BMP #### [address] [address] Neutrophils/100 WBC (Bld) 70.5 % Normal 37.0-80.0 [facility] ([place]) Comment on above: Performed By: #### A MANJULA, CBC, ADIFF, GFR, BMP #### [address] [address] .GFRon 01-25-2024 GFR 92 ml/min/1.73sqm Normal [facility] ([place]) Comment on above: Result Comment: GFR Population [...] A MANJULA, CBC, ADIFF, GFR, BMP #### [address] [address] GFR Non- 76 ml/min/1.73sqm Normal [facility] ([place]) Comment on above: Result Comment: GFR Population [...] A MANJULA, CBC, ADIFF, GFR, BMP #### [address] [address] .NEUABSon 01-25-2024 Neutrophil, Absolute 3.8 10 3/mcL Normal 2.9-6.2 [facility] ([place]) Comment on above: Performed By: #### A MANJULA, CBC, ADIFF, GFR, BMP #### [address] [address] BMPon 01-25-2024 BUN/Creatinine Ratio 12 ratio Normal 7-27 [facility] ([place]) Comment on above: Performed By: #### A MANJULA, CBC, ADIFF, GFR, BMP #### [address] [address] Calcium [Mass/Vol] 8.2 mg/dL Low 8.4-10.2 [facility] ([place]) Comment on above: Performed By: #### A MANJULA, CBC, ADIFF, GFR, BMP #### [address] [address] Chloride [Moles/Vol] 100 mmol/L Normal 98-107 [facility] ([place]) Comment on above: Performed By: #### A MANJULA, CBC, ADIFF, GFR, BMP #### [address] [address] CO2 [Moles/Vol] 29 mmol/L Normal 23-31 [facility] ([place]) Comment on above: Performed By: #### A MANJULA, CBC, ADIFF, GFR, BMP #### [address] [address] Creatinine [Mass/Vol] 0.73 mg/dL Normal 0.55-1.02 [facility] ([place]) Comment on above: Performed By: #### A MANJULA, CBC, ADIFF, GFR, BMP #### [address] [address] Electrolyte Balance 6.0 mEq/L Normal 4.0-15.0 [facility] ([place]) Comment on above: Performed By: #### A MANJULA, CBC, ADIFF, GFR, BMP #### [address] [address] Glucose [Mass/Vol] 111 mg/dL High 83-110 [facility] ([place]) Comment on above: Performed By: #### A MANJULA, CBC, ADIFF, GFR, BMP #### [address] [address] Potassium [Moles/Vol] 4.0 mmol/L Normal 3.5-5.1 [facility] ([place]) Comment on above: Performed By: #### A MANJULA, CBC, ADIFF, GFR, BMP #### [address] [address] Sodium [Moles/Vol] 135 mmol/L Low 136-145 [facility] ([place] Comment on above: Performed By: #### A MANJULA, CBC, ADIFF, GFR, BMP #### [address] [address] Urea nitrogen [Mass/Vol] 9 mg/dL Normal 7-18 [facility] ([place]) Comment on above: Performed By: #### A MANJULA, CBC, ADIFF, GFR, BMP #### [address] [address] CBCon 01-25-2024 Erythrocyte distribution width (RBC) [Ratio] 15.5 % High 11.5-14.5 [facility] ([place]) Comment on above: Performed By: #### A MANJULA, CBC, ADIFF, GFR, BMP #### [address] [address] Hematocrit (Bld) [Volume fraction] 31.8 % Low 37.0-47.0 [facility] ([place]) Comment on above: Performed By: #### A MANJULA, CBC, ADIFF, GFR, BMP #### [address] [address] Hgb 10.3 G/dL Low 12.0-16.0 [facility] ([place] Comment on above: Performed By: #### A MANJULA, CBC, ADIFF, GFR, BMP #### [address] [address] MCH (RBC) [Entitic mass] 30.5 pg Normal 27.0-31.2 [facility] ([place] Comment on above: Performed By: #### A MANJULA, CBC, ADIFF, GFR, BMP #### [address] [address] MCHC 32.4 G/dL Low 33.0-37.0 [facility] ([place]) Comment on above: Performed By: #### A MANJULA, CBC, ADIFF, GFR, BMP #### [address] [address] MCV (RBC) [Entitic vol] 94.1 fL High 80.0-94.0 [facility] ([place]) Comment on above: Performed By: #### A MANJULA, CBC, ADIFF, GFR, BMP #### [address] [address] Platelet 255 10 3/mcL Normal 130-400 [facility] ([place]) Comment on above: Performed By: #### A MANJULA, CBC, ADIFF, GFR, BMP #### [address] [address] Platelet mean volume (Bld) [Entitic vol] 7.6 fL Normal 7.4-10.4 [facility] ([place]) Comment on above: Performed By: #### A MANJULA, CBC, ADIFF, GFR, BMP #### [address] [address] RBC 3.38 10 6/mcL Low 4.20-5.40 [facility] ([place]) Comment on above: Performed By: #### A MANJULA, CBC, ADIFF, GFR, BMP #### [address] [address] WBC 5.4 10 3/mcL Normal 4.6-10.8 [facility] ([place]) Comment on above: Performed By: #### A MANJULA, CBC, ADIFF, GFR, BMP #### [id number] [place], [place] [address] LABORATORYOrdered By: SYSTEM SYSTEM on 01-25-2024 Basophil, [...] 4.6 - 10.8 10^3/mcL AO Workflow SS Basic Metabolic Profile (BMP )on 01-22-2024 BUN/CRE 14.9 RATIO Normal 10-20 [facility] Comment on above: Performed By: #### L 100.0100, L500.2500 #### [facility] [address] [place], [address] CA,Total 9.1 mg/dL Normal 8.5-10.1 [facility] Comment on above: Performed By: #### L 100.0100, L500.2500 #### [facility] [address] [place], [address] Chloride [Moles/Vol] 105 mmol/L Normal 98-107 [facility] Comment on above: Performed By: #### L 100.0100, L500.2500 #### [facility] [address] [place], [address] CO2 [Moles/Vol] 24.0 mmol/L Normal 21.0-32.0 [facility] Comment on above: Performed By: #### L 100.0100, L500.2500 #### [facility] [address] [place], [address] Creatinine [Mass/Vol] 0.61 mg/dL Normal 0.55-1.02 [facility] Comment on above: Result Comment: The validity of the calculated GFR GFRAA in patients over 70 years has not been determined. Clinical correlation is essential. Performed By: #### L 100.0100, L500.2500 #### [facility] [address] [place], [address] ECRCL 48.20 ml/min Normal [facility] Comment on above: Performed By: #### L 100.0100, L500.2500 #### [facility] [address] [place], [address] EST GFR - AA 121 mL/min Normal >60 [facility] Comment on above: Result Comment: Afri can Ugand[place] GFR Calc Performed By: #### L 100.0100, L500.2500 #### [facility] [address] [place], [address] GAP 9 Normal 5-15 [facility] Comment on above: Performed By: #### L 100.0100, L500.2500 #### [facility] [address] [place], [address] GFR/1.73 sq M.predicted among non-blacks MDRD (S/P/Bld) [Vol rate/Area] 100 mL/min/{1.73_m2} Normal >60 [facility] Comment on above: Result Comment: Non- GFR Calc Performed By: #### L 100.0100, L500.2500 #### [facility] [address] [place], [address] Glucose [Mass/Vol] 106 mg/dL Normal 74-106 [facility] Comment on above: Result Comment: Fast ing Glucose result from 100 to 125 mg/dL suggests IMPAIRED HOMEOSTASIS per A.D.A. criteria. Performed By: #### L 100.0100, L500.2500 #### [facility] [address] [place], [address] Potassium [Moles/Vol] 3.6 mmol/L Normal 3.5-5.1 [facility] Comment on above: Performed By: #### L 100.0100, L500.2500 #### [facility] [address] [place], [address] Sodium [Moles/Vol] 138 mmol/L Normal 136-145 [facility] Comment on above: Performed By: #### L 100.0100, L500.2500 #### [facility] [address] [place], [address] Urea nitrogen [Mass/Vol] 9 mg/dL Normal 7-18 [facility] Comment on above: Performed By: #### L 100.0100, L500.2500 #### [facility] [address] [place], [address] CBC W/Diff, Automatedon 06-08 13-2023 Absolute Lymph 0.94 X10 3/uL Normal 0.83-4.51 [facility] Comment on above: Performed By: #### L 100.0100, L500.2500 #### [facility] [address] [place], [address] Absolute Neut 3.1 X10 3/uL Normal 2.0-7.7 [facility] Comment on above: Performed By: #### L 100.0100, L500.2500 #### [facility] [address] [place], [address] Basophils/100 WBC (Bld) 0.8 % Normal 0-1 [facility] Comment on above: Performed By: #### L 100.0100, L500.2500 #### [facility] [address] [place], [address] Eosinophils/100 WBC (Bld) 1.0 % Normal 0-5 [facility] Comment on above: Performed By: #### L 100.0100, L500.2500 #### [facility] [address] [place], [address] Erythrocyte distribution width (RBC) [Ratio] 15.9 % High 11.6-14.6 [facility] Comment on above: Performed By: #### L 100.0100, L500.2500 #### [facility] [address] [place], [address] Hematocrit (Bld) [Volume fraction] 28.9 % Low 37-47 [facility] Comment on above: Performed By: #### L 100.0100, L500.2500 #### [facility] [address] [place], [address] Hemoglobin (Bld) [Mass/Vol] 9.0 g/dL Low 12.0-15.0 [facility] Comment on above: Performed By: #### L 100.0100, L500.2500 #### [facility] [address] [place], [address] IG% 0.200 Normal 0.0-0.9 [facility] Comment on above: Result Comment: IG% - Immature Granulocytes (promyelocytes, myelocytes and metamyelocytes) > 1% indicates that a LEFT SHIFT is Present. Performed By: #### L 100.0100, L500.2500 #### [facility] [address] [place], [address] Lymphocytes/100 WBC (Bld) 19.7 % Normal 19-41 [facility] Comment on above: Performed By: #### L 100.0100, L500.2500 #### [facility] [address] [place], [address] MCH (RBC) [Entitic mass] 30.3 pg Normal 27.0-32.0 [facility] Comment on above: Performed By: #### L 100.0100, L500.2500 #### [facility] [address] [place], [address] MCHC (RBC) [Mass/Vol] 31.1 g/dL Low 32-36 [facility] Comment on above: Performed By: #### L 100.0100, L500.2500 #### [facility] [address] [place], [address] MCV (RBC) [Entitic vol] 97.3 fL Normal 81-99 [facility] Comment on above: Performed By: #### L 100.0100, L500.2500 #### [facility] [address] [place], [address] Monocytes/100 WBC (Bld) 14.0 % High 0-10 [facility] Comment on above: Performed By: #### L 100.0100, L500.2500 #### [facility] [address] [place], [address] Neutrophils/100 WBC (Bld) 64.3 % Normal 47-70 [facility] Comment on above: Performed By: #### L 100.0100, L500.2500 #### [facility] [address] [place], [address] Nucleated RBC (Bld) [#/Vol] 0 10*3/uL Normal 0-5 [facility] Comment on above: Performed By: #### L 100.0100, L500.2500 #### [facility] [address] [place], [address] Platelet mean volume (Bld) [Entitic vol] 9.7 fL Normal 6.2-12.0 [facility] Comment on above: Performed By: #### L 100.0100, L500.2500 #### [facility] [address] [place], [address] Platelets (Bld) [#/Vol] 234 10*3/uL Normal 150-450 [facility] Comment on above: Performed By: #### L 100.0100, L500.2500 #### [facility] [address] [place], [address] RBC (Bld) [#/Vol] 2.97 10*6/uL Low 4.2-5.4 [facility] Comment on above: Performed By: #### L 100.0100, L500.2500 #### [facility] [address] [place], [address] RDW SD 55.8 fl High 35.1-43.9 [facility] Comment on above: Performed By: #### L 100.0100, L500.2500 #### [facility] [address] [place], [address] WBC (Bld) [#/Vol] 4.8 10*3/uL Normal 4.4-11.0 [facility] Comment on above: Performed By: #### L 100.0100, L500.2500 #### [facility] [address] [place], [address] Bacteria Ur Culton 4 Bacteria identified Cx Nom (U) ORGANISM ID: 1 10,000 -<50,000 CFU/ml Normal urogenital raghu Normal [facility] Comment on above: Performed By: #### 6 30-4 ####[facility] LABCLIA [id number] [address] [place] CNPNon 01-11-2024 CNPN Normal [facility] CNPNon 01-07-2024 CNPN Normal [facility] CNPNon 01-06-2024 CNPN Normal [facility] Bacteria Ur Culton 4 Bacteria identified Cx Nom (U) Abnormal [facility] Comment on above: Performed By: #### 6 30-4 ####[facility] LABCLIA [id number] [address] [place] CNPNon 12-16-2023 CNPN Normal [facility] CNPNon 12-15-2023 CNPN Normal [facility] CNPNon 12-14-2023 CNPN Normal [facility] Bacteria Ur Culton Bacteria identified Cx Nom (U) Abnormal [facility] Comment on above: Performed By: #### 6 30-4 ####[facility] LABCLIA [id number] [place] [address] [place] CNOVon 12-13-2023 CNOV Normal [facility] CNPNon 12-13-2023 CNPN Normal [facility] URINALYSIS, REFLEX MICROSCOP ICon 12-13-2023 BACTERIA UL >9821 High Negative [facility] Comment on above: Order Comment: Speci men Type: URINE SPECIMENOrdering Facility: [facility] Address: [address] [place] [address] Performed By: #### L [id number] ####[facility] LABCLIA [id number] [place] [address] [place] Bilirubin Ql (U) Negative Normal Negative [facility] Comment on above: Order Comment: Speci men Type: URINE SPECIMENOrdering Facility: [facility] Address: [address] [place] [address] Performed By: #### L [id number] ####[facility] LABCLIA [id number] [place] [address] [place] Clarity (Unsp spec) Cloudy Abnormal Clear [facility] Comment on above: Order Comment: Speci men Type: URINE SPECIMENOrdering Facility: [facility] Address: [address] [place] [address] Performed By: #### L [id number] ####[facility] LABCLIA [id number] [place] [address] [place] Color (U) Yellow Normal Yellow [facility] Comment on above: Order Comment: Speci men Type: URINE SPECIMENOrdering Facility: [facility] Address: [address] [place] [address] Performed By: #### L [id number] ####[facility] LABCLIA [id number] [place] [address] [facility] Epithelial cells LM.HPF (Urine sed) [#/Area] Moderate Normal [facility] Comment on above: Order Comment: Speci men Type: URINE SPECIMENOrdering Facility: [facility] Address: [address] [place] [address] Performed By: #### L [id number] ####[facility] LABCLIA [id number] [address] [place] Glucose Test strip (U) [Mass/Vol] Negative Normal Negative [facility] Comment on above: Order Comment: Speci men Type: URINE SPECIMENOrdering Facility: [facility] Address: [address] [place] [address] Performed By: #### L [id number] ####[facility] LABCLIA [id number] [place] [address] [place] Hemoglobin Ql (U) Trace Abnormal Negative [facility] Comment on above: Order Comment: Speci men Type: URINE SPECIMENOrdering Facility: [facility] Address: [address] [place] [address] Performed By: #### L [id number] ####[facility] LABCLIA [id number] [place] [address] [place] Hyaline casts (Urine sed) [#/Area] 1-3 /LPF Abnormal 0 /LPF [facility] Comment on above: Order Comment: Speci men Type: URINE SPECIMENOrdering Facility: [facility] Address: [address] [place] [address] Performed By: #### L [id number] ####[facility] LABCLIA [id number] [place] [address] [place] Ketones Ql (U) Negative Normal Negative [facility] Comment on above: Order Comment: Speci men Type: URINE SPECIMENOrdering Facility: [facility] Address: [address] [place] [address] Performed By: #### L [id number] ####[facility] LABCLIA [id number] [place] [address] [place] Leukocyte esterase Test strip Ql (U) 3+ Abnormal Negative [facility] Comment on above: Order Comment: Speci men Type: URINE SPECIMENOrdering Facility: [facility] Address: [address] [place] [address] Performed By: #### L [id number] ####[facility] LABCLIA [id number] [place] [address] [place] Nitrite Ql (U) Negative Normal Negative [facility] Comment on above: Order Comment: Speci men Type: URINE SPECIMENOrdering Facility: [facility] Address: [address] [place] [address] Performed By: #### L [id number] ####[facility] LABCLIA [id number] [place] [address] [place] pH (U) 7.5 [pH] Normal <8.5 [facility] Comment on above: Order Comment: Speci men Type: URINE SPECIMENOrdering Facility: [facility] Address: [address] [place] [address] Performed By: #### L [id number] ####[facility] LABCLIA [id number] [place] [address] [place] Protein (U) [Mass/Vol] Trace Abnormal Negative [facility] Comment on above: Order Comment: Speci men Type: URINE SPECIMENOrdering Facility: [facility] Address: [address] [place] [address] Performed By: #### L [id number] ####[facility] LABCLIA [id number] [place] [address] [place] RBC LM.HPF (Urine sed) [#/Area] /[HPF] Abnormal 0-2 /HPF [facility] Comment on above: Order Comment: Speci men Type: URINE SPECIMENOrdering Facility: [facility] Address: [address] [place] [address] Performed By: #### L [id number] ####[facility] LABIA [id number] [place] [address] [place] Specific gravity (U) [Rel density] 1.008 Normal 1.005-1.03 0 [facility] Comment on above: Order Comment: Speci men Type: URINE SPECIMENOrdering Facility: [facility] Address: [address] [place] [address] Performed By: #### L [id number] ####[facility] LABIA [id number] [address] [place] Urobilinogen Ql (U) 0.2 EU/dL Normal 0.2-1.0 EU/dL [facility] Comment on above: Order Comment: Speci men Type: URINE SPECIMENOrdering Facility: [facility] Address: [address] [place] [address] Performed By: #### L [id number] ####[facility] LABIA [id number] [place] [address] [place] WBC LM.HPF (Urine sed) [#/Area] /[HPF] Abnormal 0-5 /HPF [facility] Comment on above: Order Comment: Speci men Type: URINE SPECIMENOrdering Facility: [facility] Address: [address] [place] [address] Performed By: #### L [id number] ####[facility] LABIA [id number] [place] [address] [place] Yeast.budding LM.HPF (Urine sed) [#/Area] Present Abnormal None Seen [facility] Comment on above: Order Comment: Speci men Type: URINE SPECIMENOrdering Facility: [facility] Address: [address] [place] [address] Performed By: #### L [id number] ####[facility] LABCLIA [id number] [place] [address] [place] .GFRon 12-09-2023 GFR 72 ml/min/1.73sqm Normal [facility] ([place]) Comment on above: Result Comment: GFR Population [...] CBC, ADIFF, GFR, BMP #### [place] [address] [address] GFR Non- 60 ml/min/1.73sqm Normal [facility] ([place]) Comment on above: Result Comment: GFR Population [...] A MANJULA, CBC, ADIFF, GFR, BMP #### [address] [address] BMPon 12-09-2023 BUN/Creatinine Ratio 19 ratio Normal 7-27 [facility] ([place]) Comment on above: Performed By: #### A MANJULA, CBC, ADIFF, GFR, BMP #### [address] [address] Calcium [Mass/Vol] 8.5 mg/dL Normal 8.4-10.2 [facility] ([place]) Comment on above: Performed By: #### A MANJULA, CBC, ADIFF, GFR, BMP #### [address] [address] Chloride [Moles/Vol] 103 mmol/L Normal 98-107 [facility] ([place] Comment on above: Performed By: #### A MANJULA, CBC, ADIFF, GFR, BMP #### [address] [address] CO2 [Moles/Vol] 31 mmol/L Normal 23-31 [facility] ([place]) Comment on above: Performed By: #### A MANJULA, CBC, ADIFF, GFR, BMP #### [address] [address] Creatinine [Mass/Vol] 0.90 mg/dL Normal 0.55-1.02 [facility] ([place]) Comment on above: Performed By: #### A MANJULA, CBC, ADIFF, GFR, BMP #### [address] [address] Electrolyte Balance 9.0 mEq/L Normal 4.0-15.0 [facility] ([place]) Comment on above: Performed By: #### A MANJULA, CBC, ADIFF, GFR, BMP #### [address] [address] Glucose [Mass/Vol] 98 mg/dL Normal 83-110 [facility] ([place] Comment on above: Performed By: #### A MANJULA, CBC, ADIFF, GFR, BMP #### [address] [address] Potassium [Moles/Vol] 4.1 mmol/L Normal 3.5-5.1 [facility] ([place] Comment on above: Performed By: #### A MANJULA, CBC, ADIFF, GFR, BMP #### [address] [address] Sodium [Moles/Vol] 143 mmol/L Normal 136-145 [facility] ([place] Comment on above: Performed By: #### A MANJULA, CBC, ADIFF, GFR, BMP #### [address] [address] Urea nitrogen [Mass/Vol] 17 mg/dL Normal 7-18 [facility] ([place]) Comment on above: Performed By: #### A MANJULA, CBC, ADIFF, GFR, BMP #### [address] [address] LABORATORYOrdered By: SYSTEM SYSTEM on 12-09-2023 Calcium [...] Basophil, Absolute 0.0 10 3/mcL Normal 0.0-0.2 [facility] ([place] Comment on above: Performed By: #### A MANJULA, CBC, ADIFF, GFR, BMP #### [address] [address] Basophils/100 WBC (Bld) 0.5 % Normal 0.0-2.5 [facility] ([place]) Comment on above: Performed By: #### A MANJULA, CBC, ADIFF, GFR, BMP #### [address] [address] Eosinophil, Absolute 0.1 10 3/mcL Normal 0.0-0.4 [facility] ([place]) Comment on above: Performed By: #### A MANJULA, CBC, ADIFF, GFR, BMP #### [address] [address] Eosinophils/100 WBC (Bld) 2.3 % Normal 0.0-7.0 [facility] ([place]) Comment on above: Performed By: #### A MANJULA, CBC, ADIFF, GFR, BMP #### [address] [address] Lymphocyte, Absolute 0.9 10 3/mcL Normal 0.8-3.9 [facility] ([place] Comment on above: Performed By: #### A MANJULA, CBC, ADIFF, GFR, BMP #### [address] [address] Lymphocytes/100 WBC (Bld) 18.4 % Normal 10.0-50.0 [facility] ([place]) Comment on above: Performed By: #### A MANJULA, CBC, ADIFF, GFR, BMP #### [address] [address] Monocyte, Absolute 0.3 10 3/mcL Normal 0.2-1.0 [facility] ([place] Comment on above: Performed By: #### A MANJULA, CBC, ADIFF, GFR, BMP #### [address] [address] Monocytes/100 WBC (Bld) 5.9 % Normal 1.7-13.0 [facility] ([place]) Comment on above: Performed By: #### A MANJULA, CBC, ADIFF, GFR, BMP #### [address] [address] Neutrophils/100 WBC (Bld) 72.9 % Normal 37.0-80.0 [facility] ([place]) Comment on above: Performed By: #### A MANJULA, CBC, ADIFF, GFR, BMP #### [address] [address] .GFRon 12-03-2023 GFR Non- 64 ml/min/1.73sqm Normal [facility] ([place]) Comment on above: Result Comment: GFR Population [...] meters Performed By: #### U A #### [address] [address] GFR 77 ml/min/1.73sqm Normal [facility] ([place]) Comment on above: Result Comment: GFR Population [...] meters Performed By: #### U A #### [address] [address] .NEUABSon 12-03-2023 Neutrophil, Absolute 3.5 10 3/mcL Normal 2.9-6.2 [facility] ([place]) Comment on above: Performed By: #### A MANJULA, CBC, ADIFF, GFR, BMP #### [address] [address] BMPon 12-03-2023 BUN/Creatinine Ratio 14 ratio Normal 7-27 [facility] ([place]) Comment on above: Performed By: #### A MANJULA, CBC, ADIFF, GFR, BMP #### [address] [address] Calcium [Mass/Vol] 8.5 mg/dL Normal 8.4-10.2 [facility] ([place]) Comment on above: Performed By: #### A MANJULA, CBC, ADIFF, GFR, BMP #### [address] [address] Chloride [Moles/Vol] 102 mmol/L Normal 98-107 [facility] ([place]) Comment on above: Performed By: #### A MANJULA, CBC, ADIFF, GFR, BMP #### [place] [address] CO2 [Moles/Vol] 31 mmol/L Normal 23-31 [facility] ([place]) Comment on above: Performed By: #### A MANJULA, CBC, ADIFF, GFR, BMP #### [address] [address] Creatinine [Mass/Vol] 0.85 mg/dL Normal 0.55-1.02 [facility] ([place]) Comment on above: Performed By: #### A MANJULA, CBC, ADIFF, GFR, BMP #### [address] [address] Electrolyte Balance 8.0 mEq/L Normal 4.0-15.0 [facility] ([place]) Comment on above: Performed By: #### A MANJULA, CBC, ADIFF, GFR, BMP #### [address] [address] Glucose [Mass/Vol] 113 mg/dL High 83-110 [facility] ([place]) Comment on above: Performed By: #### A MANJULA, CBC, ADIFF, GFR, BMP #### [address] [address] Potassium [Moles/Vol] 3.8 mmol/L Normal 3.5-5.1 [facility] ([place] Comment on above: Performed By: #### A MANJULA, CBC, ADIFF, GFR, BMP #### [address] [address] Sodium [Moles/Vol] 141 mmol/L Normal 136-145 [facility] ([place]) Comment on above: Performed By: #### A MANJULA, CBC, ADIFF, GFR, BMP #### [address] [address] Urea nitrogen [Mass/Vol] 12 mg/dL Normal 7-18 [facility] ([place]) Comment on above: Performed By: #### A MANJULA, CBC, ADIFF, GFR, BMP #### [address] [address] CBCon 12-03-2023 Erythrocyte distribution width (RBC) [Ratio] 13.1 % Normal 11.5-14.5 [facility] ([place] Comment on above: Performed By: #### A MANJULA, CBC, ADIFF, GFR, BMP #### [place] [id number] Hematocrit (Bld) [Volume fraction] 31.1 % Low 37.0-47.0 [facility] ([place] Comment on above: Performed By: #### A MANJULA, CBC, ADIFF, GFR, BMP #### [address] [address] Hgb 10.7 G/dL Low 12.0-16.0 [facility] ([place] Comment on above: Performed By: #### A MANJULA, CBC, ADIFF, GFR, BMP #### [address] [address] MCH (RBC) [Entitic mass] 32.5 pg High 27.0-31.2 [facility] ([place] Comment on above: Performed By: #### A MANJULA, CBC, ADIFF, GFR, BMP #### [place] [id number] MCHC 34.5 G/dL Normal 33.0-37.0 [facility] ([place] Comment on above: Performed By: #### A MANJULA, CBC, ADIFF, GFR, BMP #### [address] [address] MCV (RBC) [Entitic vol] 94.2 fL High 80.0-94.0 [facility] ([place]) Comment on above: Performed By: #### A MANJULA, CBC, ADIFF, GFR, BMP #### [address] [address] Platelet 283 10 3/mcL Normal 130-400 [facility] ([place]) Comment on above: Performed By: #### A MANJULA, CBC, ADIFF, GFR, BMP #### [address] [address] Platelet mean volume (Bld) [Entitic vol] 7.2 fL Low 7.4-10.4 [facility] ([place]) Comment on above: Performed By: #### A MANJULA, CBC, ADIFF, GFR, BMP #### [address] [address] RBC 3.30 10 6/mcL Low 4.20-5.40 [facility] ([place]) Comment on above: Performed By: #### A MANJULA, CBC, ADIFF, GFR, BMP #### [address] [address] WBC 4.8 10 3/mcL Normal 4.6-10.8 [facility] ([place] Comment on above: Performed By: #### A MANJULA, CBC, ADIFF, GFR, BMP #### [address] [address] LABORATORYOrdered By: SYSTEM SYSTEM on 12-03-2023 Basophil, [...] Workflow SS LABORATORYOrdered By: Raphael Mcghee on 12-03-2023 Adenovirus DNA FAUSTO+non-probe Ql (Nph) Not Detected *NA* (12/03/23 8:03 AM) Invalid Interpretation Code Not Detected AH Auto Viro/Sero SS B. parapertussis [id number] DNA FAUSTO+non-probe Ql (Nph) Not Detected *NA* [...] This assay has been validated in the [facility] for use with nasopharyngeal specimens in [facility]. If a non-validated specimen or [...] 12-03-2023 Adenovirus Not detected Normal Not Detected [facility] ([place] Comment on above: Performed By: #### A MANJULA, CBC, ADIFF, GFR, BMP #### [address] [address] Bordetella Parapertussis Not detected Normal Not Detected [facility] ([place] Comment on above: Performed By: #### A MANJULA, CBC, ADIFF, GFR, BMP #### [address] [address] Bordetella Pertussis Not detected Normal Not Detected [facility] ([place] Comment on above: Performed By: #### A MANJULA, CBC, ADIFF, GFR, BMP #### [place] [address] [address] Chlamydophila pneumoniae Not detected Normal Not Detected [facility] ([place]) Comment on above: Performed By: #### A MANJULA, CBC, ADIFF, GFR, BMP #### [address] [address] Coronavirus 229E (Not COVID-19) Not detected Normal Not Detected [facility] ([place]) Comment on above: Performed By: #### A MANJULA, CBC, ADIFF, GFR, BMP #### [address] [address] Coronavirus HKU1 (Not COVID-19) Not detected Normal Not Detected [facility] ([place]) Comment on above: Performed By: #### A MANJULA, CBC, ADIFF, GFR, BMP #### [address] [address] Coronavirus NL63 (Not COVID-19) Not detected Normal Not Detected [facility] ([place] Comment on above: Performed By: #### A MANJULA, CBC, ADIFF, GFR, BMP #### [address] [address] Coronavirus OC43 (Not COVID-19) Not detected Normal Not Detected [facility] ([place] Comment on above: Performed By: #### A MANJULA, CBC, ADIFF, GFR, BMP #### [address] [address] Human Metapneumovirus Not detected Normal Not Detected [facility] ([place] Comment on above: Performed By: #### A MANJULA, CBC, ADIFF, GFR, BMP #### [address] [address] Influenza A Not detected Normal Not Detected [facility] ([place] Comment on above: Performed By: #### A MANJULA, CBC, ADIFF, GFR, BMP #### [address] [address] Influenza B Not detected Normal Not Detected [facility] ([place] Comment on above: Performed By: #### A MANJULA, CBC, ADIFF, GFR, BMP #### [address] [address] Mycoplasma pneumoniae Not detected Normal Not Detected [facility] ([place] Comment on above: Performed By: #### A MANJULA, CBC, ADIFF, GFR, BMP #### [address] [address] Parainfluenza 1 Not detected Normal Not Detected [facility] ([place] Comment on above: Performed By: #### A MANJULA, CBC, ADIFF, GFR, BMP #### [address] [address] Parainfluenza 2 Not detected Normal Not Detected [facility] ([place] Comment on above: Performed By: #### A MANJULA, CBC, ADIFF, GFR, BMP #### [address] [address] Parainfluenza 3 Not detected Normal Not Detected [facility] ([place] Comment on above: Performed By: #### A MANJULA, CBC, ADIFF, GFR, BMP #### [address] [address] Parainfluenza 4 Not detected Normal Not Detected [facility] ([place] Comment on above: Performed By: #### A MANJULA, CBC, ADIFF, GFR, BMP #### [address] [address] Respiratory Syncytial Virus Not detected Normal Not Detected [facility] ([place] Comment on above: Performed By: #### A MANJULA, CBC, ADIFF, GFR, BMP #### [address] [address] Rhinovirus/Enterovirus Not detected Normal Not Detected [facility] ([place] Comment on above: Performed By: #### A MANJULA, CBC, ADIFF, GFR, BMP #### [address] [address] SARS-CoV-2 (COVID-19) RNA FAUSTO+probe Ql (Unsp spec) Not detected Normal Not Detected [facility] ([place]) Comment on above: Result Comment: This test is being used under the FDA EUA procedure. This assay has been validated in the [facility] for use with nasopharyngeal specimens in [facility]. If a non-validated specimen or [...] A MANJULA, CBC, ADIFF, GFR, BMP #### [address] [address] UAon 12-03-2023 Color (U) Yellow Normal [facility] ([place]) Comment on above: Performed By: #### U A #### [address] [address] Glucose (U) [Mass/Vol] Negative Normal Negative [facility] ([place]) Comment on above: Performed By: #### U A #### [address] [address] Ketones Ql (U) Negative Normal Negative [facility] ([place]) Comment on above: Performed By: #### U A #### [address] [place] [address] UA Appear Clear Normal Clear [facility] ([place]) Comment on above: Performed By: #### U A #### [address] [address] UA Blood Negative Normal Negative [facility] ([place]) Comment on above: Performed By: #### U A #### [place] [phone] UA Leuk Est Negative Normal Negative [facility] ([place]) Comment on above: Performed By: #### U A #### [address] [address] UA Nitrite Negative Normal Negative [facility] ([place]) Comment on above: Performed By: #### U A #### [place] [address] UA pH 7.0 Normal 5.0 - 8.0 [facility] ([place]) Comment on above: Performed By: #### U A #### [place] [address] UA Protein Negative Normal Negative [facility] ([place]) Comment on above: Performed By: #### U A #### [place] [address] UA Spec Grav 1.010 Abnormal 1.015-1.02 5 [facility] ([place]) Comment on above: Performed By: #### U A #### [place] [address] UA Specimen Type Clean Catch Normal [facility] ([place]) Comment on above: Performed By: #### U A #### [address] [address] UA Urobilinogen 0.2 E.U./dL Normal 0.2-1.0 [facility] ([place]) Comment on above: Performed By: #### U A #### [place] [address] Urobilinogen (U) [Mass/Vol] Negative Normal Negative [facility] ([place]) Comment on above: Performed By: #### U A #### [address] [address] .Auto Diffon 12-02-2023 Basophil, Absolute 0.0 10 3/mcL Normal 0.0-0.2 [facility] ([place]) Comment on above: Performed By: #### A MANJULA, CBC, ADIFF, GFR, BMP #### [address] [address] Basophils/100 WBC (Bld) 0.9 % Normal 0.0-2.5 [facility] ([place]) Comment on above: Performed By: #### A MANJULA, CBC, ADIFF, GFR, BMP #### [address] [address] Eosinophil, Absolute 0.1 10 3/mcL Normal 0.0-0.4 [facility] ([place]) Comment on above: Performed By: #### A MANJULA, CBC, ADIFF, GFR, BMP #### [address] [address] Eosinophils/100 WBC (Bld) 2.4 % Normal 0.0-7.0 [facility] ([place]) Comment on above: Performed By: #### A MANJULA, CBC, ADIFF, GFR, BMP #### [address] [address] Lymphocyte, Absolute 0.9 10 3/mcL Normal 0.8-3.9 [facility] ([place]) Comment on above: Performed By: #### A MANJULA, CBC, ADIFF, GFR, BMP #### [address] [address] Lymphocytes/100 WBC (Bld) 19.6 % Normal 10.0-50.0 [facility] ([place]) Comment on above: Performed By: #### A MANJULA, CBC, ADIFF, GFR, BMP #### [address] [address] Monocyte, Absolute 0.3 10 3/mcL Normal 0.2-1.0 [facility] ([place]) Comment on above: Performed By: #### A MANJULA, CBC, ADIFF, GFR, BMP #### [address] [address] Monocytes/100 WBC (Bld) 7.0 % Normal 1.7-13.0 [facility] ([place]) Comment on above: Performed By: #### A MANJULA, CBC, ADIFF, GFR, BMP #### [address] [address] Neutrophils/100 WBC (Bld) 70.1 % Normal 37.0-80.0 [facility] ([place]) Comment on above: Performed By: #### A MANJULA, CBC, ADIFF, GFR, BMP #### [address] [address] .GFRon 12-02-2023 GFR 94 ml/min/1.73sqm Normal [facility] ([place]) Comment on above: Result Comment: GFR Population [...] A MANJULA, CBC, ADIFF, GFR, BMP #### [address] [address] GFR Non- 77 ml/min/1.73sqm Normal [facility] ([place]) Comment on above: Result Comment: GFR Population [...] A MANJULA, CBC, ADIFF, GFR, BMP #### [address] [address] .NEUABSon 12-02-2023 Neutrophil, Absolute 3.2 10 3/mcL Normal 2.9-6.2 [facility] ([place]) Comment on above: Performed By: #### A MANJULA, CBC, ADIFF, GFR, BMP #### [address] [address] BMPon 12-02-2023 BUN/Creatinine Ratio 17 ratio Normal 7-27 [facility] ([place]) Comment on above: Performed By: #### A MANJULA, CBC, ADIFF, GFR, BMP #### [address] [address] Calcium [Mass/Vol] 8.7 mg/dL Normal 8.4-10.2 [facility] ([place]) Comment on above: Performed By: #### A MANJULA, CBC, ADIFF, GFR, BMP #### [address] [address] Chloride [Moles/Vol] 102 mmol/L Normal 98-107 [facility] ([place]) Comment on above: Performed By: #### A MANJULA, CBC, ADIFF, GFR, BMP #### [address] [address] CO2 [Moles/Vol] 29 mmol/L Normal 23-31 [facility] ([place]) Comment on above: Performed By: #### A MANJULA, CBC, ADIFF, GFR, BMP #### [address] [address] Creatinine [Mass/Vol] 0.72 mg/dL Normal 0.55-1.02 [facility] ([place]) Comment on above: Performed By: #### A MANJULA, CBC, ADIFF, GFR, BMP #### [address] [address] Electrolyte Balance 10.0 mEq/L Normal 4.0-15.0 [facility] ([place]) Comment on above: Performed By: #### A MANJULA, CBC, ADIFF, GFR, BMP #### [address] [address] Glucose [Mass/Vol] 103 mg/dL Normal 83-110 [facility] ([place]) Comment on above: Performed By: #### A MANJULA, CBC, ADIFF, GFR, BMP #### [address] [address] Potassium [Moles/Vol] 4.4 mmol/L Normal 3.5-5.1 [facility] ([place]) Comment on above: Performed By: #### A MANJULA, CBC, ADIFF, GFR, BMP #### [address] [address] Sodium [Moles/Vol] 141 mmol/L Normal 136-145 [facility] ([place]) Comment on above: Performed By: #### A MANJULA, CBC, ADIFF, GFR, BMP #### [address] [address] Urea nitrogen [Mass/Vol] 12 mg/dL Normal 7-18 [facility] ([place]) Comment on above: Performed By: #### A MANJULA, CBC, ADIFF, GFR, BMP #### [address] [address] CBCon 12-02-2023 Erythrocyte distribution width (RBC) [Ratio] 13.3 % Normal 11.5-14.5 [facility] ([place]) Comment on above: Performed By: #### A MANJULA, CBC, ADIFF, GFR, BMP #### [address] [address] Hematocrit (Bld) [Volume fraction] 33.2 % Low 37.0-47.0 [facility] ([place]) Comment on above: Performed By: #### A MANJULA, CBC, ADIFF, GFR, BMP #### [address] [address] Hgb 11.0 G/dL Low 12.0-16.0 [facility] ([place]) Comment on above: Performed By: #### A MANJULA, CBC, ADIFF, GFR, BMP #### [address] [address] MCH (RBC) [Entitic mass] 31.6 pg High 27.0-31.2 [facility] ([place]) Comment on above: Performed By: #### A MANJULA, CBC, ADIFF, GFR, BMP #### [address] [address] MCHC 33.2 G/dL Normal 33.0-37.0 [facility] ([place]) Comment on above: Performed By: #### A MANJULA, CBC, ADIFF, GFR, BMP #### [address] [address] MCV (RBC) [Entitic vol] 95.2 fL High 80.0-94.0 [facility] ([place]) Comment on above: Performed By: #### A MANJULA, CBC, ADIFF, GFR, BMP #### [address] [address] Platelet 319 10 3/mcL Normal 130-400 [facility] ([place]) Comment on above: Performed By: #### A MANJULA, CBC, ADIFF, GFR, BMP #### [address] [address] Platelet mean volume (Bld) [Entitic vol] 7.5 fL Normal 7.4-10.4 [facility] ([place]) Comment on above: Performed By: #### A MANJULA, CBC, ADIFF, GFR, BMP #### [address] [address] RBC 3.49 10 6/mcL Low 4.20-5.40 [facility] ([place]) Comment on above: Performed By: #### A MANJULA, CBC, ADIFF, GFR, BMP #### [address] [address] WBC 4.5 10 3/mcL Low 4.6-10.8 [facility] ([place]) Comment on above: Performed By: #### A MANJULA, CBC, ADIFF, GFR, BMP #### [place] [address] CVFLURVon 12-02-2023 FLU A PCR Negative Normal Negative [facility] ([place]) Comment on above: Performed By: #### A MANJULA, CBC, ADIFF, GFR, BMP #### [place] [address] FLU B PCR Negative Normal Negative [facility] ([place] Comment on above: Performed By: #### A MANJULA, CBC, ADIFF, GFR, BMP #### [place] [address] RSV PCR Negative Normal Negative [facility] ([place]) Comment on above: Performed By: #### A MANJULA, CBC, ADIFF, GFR, BMP #### [place] [address] SARS-CoV-2 (COVID-19) RNA FAUSTO+probe Ql (Unsp spec) Negative Normal Negative [facility] ([place]) Comment on above: Result Comment: Resu lts [...] inaccurate positive results. Performed By: #### A MNAJULA, CBC, ADIFF, GFR, BMP #### [place] [id number] LABORATORYOrdered By: Mina Pedersen on 12-02-2023 FLUAV [...] on 11-26-2023 Chloride [Moles/Vol] 100 mmol/L 98-107 [facility] Glucose [Mass/Vol] 117 mg/dL 74-106 [facility] Comment on above: Fasting Glucose resu lt from 100 to 125 mg/dL suggests IMPAIRED HOMEOSTASIS per A.D.A. criteria. Hemoglobin (Bld) [Mass/Vol] 11.2 g/dL 12.0-15.0 [facility] Potassium [Moles/Vol] 3.3 mmol/L 3.5-5.1 [facility] Sodium [Moles/Vol] 135 mmol/L 136-145 [facility] WBC (Bld) [#/Vol] 6.1 10*3/uL 4.4-11.0 [facility] Determination of erythrocyte mean corpuscular volume (MCV)Ordered By: Kelby Aguilar on 11-26-2023 MCV (RBC) [Entitic vol] 98.1 fL 81-99 [facility] Erythrocyte distribution wid th ratioOrdered By: Kelby Aguilar on 11-26-2023 Erythrocyte distribution width (RBC) [Ratio] 13.2 % 11.6-14.6 [facility] Erythrocyte distribution wid th standard deviationOrdered By: Kelby Aguilar on 11-26-2023 Erythrocyte distribution width (RBC) [Entitic vol] 47.1 fL 35.1-43.9 [facility] Hematocrit Auto (Bld) [Volum e fraction]Ordered By: Kelby Aguilar on 11-26-2023 Hematocrit (Bld) [Volume fraction] 35.4 % 37-47 [facility] Laboratory - Chemistry and C hemistry - challengeOrdered By: Kelby Aguilar on 11-26-2023 CO2 [Moles/Vol] 27.0 mmol/L 21.0-32.0 [facility] Urea nitrogen/Creatinine [Mass ratio] 17.1 mg/mg 10-20 [facility] Laboratory - Hematology and Cell countsOrdered By: Kelby Aguilar on 11-26-2023 MCH (RBC) [Entitic mass] 31.0 pg 27.0-32.0 [facility] MCHC (RBC) [Mass/Vol] 31.6 g/dL 32-36 [facility] Platelet mean volume (Bld) [Entitic vol] 10.3 fL 6.2-12.0 [facility] Platelets (Bld) [#/Vol] 215 10*3/uL 150-450 [facility] No Panel InformationOrdered By: Kelby Aguilar on 11-26-2023 Estimated Creatinine Clearance Calc 48.91 ml/min [facility] Estimated GFR (MDRD) Amer 102 mL/min >60 [facility] Comment on above: GFR Calc Estimated GFR (MDRD) Non-Af Amer 84 mL/min >60 [facility] Comment on above: Non- GFR Calc RBC Auto (Bld) [#/Vol]Ordere d By: Kelby Aguilar on 11-26-2023 RBC (Bld) [#/Vol] 3.61 10*6/uL 4.2-5.4 [facility] Serum or plasma calcium nina urement (mass/volume)Ordered By: Kelby Aguilar on 11-26-2023 Calcium [Mass/Vol] 8.6 mg/dL 8.5-10.1 [facility] Serum or plasma creatinine m easurement (mass/volume)Ordered By: Kelby Aguilar on 11-26-2023 Creatinine [Mass/Vol] 0.70 mg/dL 0.55-1.02 [facility] Comment on above: The validity of the calculated GFR & GFRAA in patients over 70 years has not been determined. Clinical correlation is essential. Serum or plasma urea nitroge n measurement (mass/volume)Ordered By: Kelby Aguilar on 11-26-2023 Urea nitrogen [Mass/Vol] 12 mg/dL 7-18 [facility] Thin prep Papanicolaou smear with manual screeningOrdered By: Kelby Aguilar on 11-26-2023 Thin prep Papanicolaou smear with manual screening 8 5-15 [facility] Laboratory - Chemistry and C hemistry - challengeOrdered By: Kelby Aguilar on 11-25-2023 CK [Catalytic activity/Vol] 1138 U/L 26-192 [facility] Absolute lymphocyte countOrd ered By: Smith Ho on 11-23-2023 Lymphocytes Auto (Unsp spec) [#/Vol] 1.14 10*3/uL 0.83-4.51 [facility] Automated lymphocyte count a s percentage of total leukocytesOrdered By: Smith Ho on 04-16-2024 Lymphocytes/100 WBC Auto (Unsp spec) 12.9 % 19-41 [facility] Basophil percentageOrdered B y: Smith Ho on 11-23-2023 Basophil percentage 10-25 SEEN /hpf 0-5 [facility] Basophils/100 WBC (Bld) 0.5 % 0-1 [facility] Chloride [Moles/Vol] 107 mmol/L 98-107 [facility] Eosinophils/100 WBC (Bld) 0.1 % 0-5 [facility] Glucose [Mass/Vol] 122 mg/dL 74-106 [facility] Comment on above: Fasting Glucose resu lt from 100 to 125 mg/dL suggests IMPAIRED HOMEOSTASIS per A.D.A. criteria. Hemoglobin (Bld) [Mass/Vol] 12.3 g/dL 12.0-15.0 [facility] Monocytes/100 WBC (Bld) 9.0 % 0-10 [facility] Neutrophils (Bld) [#/Vol] 6.8 10*3/uL 2.0-7.7 [facility] Neutrophils/100 WBC (Bld) 77.0 % 47-70 [facility] Potassium [Moles/Vol] 3.8 mmol/L 3.5-5.1 [facility] Sodium [Moles/Vol] 141 mmol/L 136-145 [facility] WBC (Bld) [#/Vol] 8.8 10*3/uL 4.4-11.0 [facility] Bilirubin Test strip Ql (U)O rdered By: Smith Ho on 11-23-2023 Bilirubin Ql (U) Negative Negative [facility] Culture, urineOrdered By: Deandre Ho on 11-23-2023 Bacteria identified Cx Nom (U) Presumptive E. coli [facility] Determination of erythrocyte mean corpuscular volume (MCV)Ordered By: Smith Ho on 11-23-2023 MCV (RBC) [Entitic vol] 96.9 fL 81-99 [facility] Erythrocyte distribution wid th ratioOrdered By: Smith Ho on 11-23-2023 Erythrocyte distribution width (RBC) [Ratio] 13.3 % 11.6-14.6 [facility] Erythrocyte distribution wid th standard deviationOrdered By: Smith Ho on 11-23-2023 Erythrocyte distribution width (RBC) [Entitic vol] 47.7 fL 35.1-43.9 [facility] Hematocrit Auto (Bld) [Volum e fraction]Ordered By: Smith Ho on 11-23-2023 Hematocrit (Bld) [Volume fraction] 37.9 % 37-47 [facility] Immature granulocytes/100 WB C Auto (Bld)Ordered By: Smith Ho on 11-23-2023 Immature granulocytes/100 WBC (Bld) 0.500 % 0.0-0.9 [facility] Comment on above: IG% - Immature Granu locytes (promyelocytes, myelocytes and metamyelocytes) > 1% indicates that a LEFT SHIFT is Present. Ketones Test strip Ql (U)Ord ered By: Smith Ho on 11-23-2023 Ketones Ql (U) 5 mg/dl Negative [facility] Laboratory - Chemistry and C hemistry - challengeOrdered By: Smith Ho on 11-23-2023 CK [Catalytic activity/Vol] 2446 U/L 26-192 [facility] CO2 [Moles/Vol] 27.0 mmol/L 21.0-32.0 [facility] Urea nitrogen/Creatinine [Mass ratio] 24.1 mg/mg 10-20 [facility] Laboratory - Hematology and Cell countsOrdered By: Smith Ho on 11-23-2023 MCH (RBC) [Entitic mass] 31.5 pg 27.0-32.0 [facility] MCHC (RBC) [Mass/Vol] 32.5 g/dL 32-36 [facility] Nucleated RBC/100 WBC (Bld) [Ratio] 0 % 0-5 [facility] Platelet mean volume (Bld) [Entitic vol] 9.9 fL 6.2-12.0 [facility] Platelets (Bld) [#/Vol] 192 10*3/uL 150-450 [facility] Mucus LM Ql (Urine sed)Order ed By: Smith Ho on 11-23-2023 Mucus Ql (Urine sed) 1+ /hpf [facility] Nitrite Test strip Ql (U)Ord ered By: Smith Ho on 11-23-2023 Nitrite Ql (U) Positive Negative [facility] No Panel InformationOrdered By: Smith Ho on 11-23-2023 Urine RBC 0-5 SEEN /hpf 0-5 [facility] Estimated Creatinine Clearance Calc 50.43 ml/min [facility] Estimated GFR (MDRD) Amer 95 mL/min >60 [facility] Comment on above: GFR Calc Estimated GFR (MDRD) Non-Af Amer 79 mL/min >60 [facility] Comment on above: Non- GFR Calc Protein Test strip Ql (U)Ord ered By: Smith Ho on 11-23-2023 Protein Ql (U) 30 mg/dl Negative [facility] RBC Auto (Bld) [#/Vol]Ordere d By: Smith Ho on 11-23-2023 RBC (Bld) [#/Vol] 3.91 10*6/uL 4.2-5.4 [facility] Serum or plasma calcium nina urement (mass/volume)Ordered By: Smith oH on 11-23-2023 Calcium [Mass/Vol] 9.4 mg/dL 8.5-10.1 [facility] Serum or plasma creatinine m easurement (mass/volume)Ordered By: Smith Ho on 11-23-2023 Creatinine [Mass/Vol] 0.75 mg/dL 0.55-1.02 [facility] Comment on above: The validity of the calculated GFR & GFRAA in patients over 70 years has not been determined. Clinical correlation is essential. Serum or plasma thyroid stim ulating hormone (TSH) measurement (units/volume)Ordered By: Kelby Aguilar on 11-23-2023 TSH Qn 1.59 uIU/mL 0.358-3.74 [facility] Serum or plasma urea nitroge n measurement (mass/volume)Ordered By: Smith Ho on 11-23-2023 Urea nitrogen [Mass/Vol] 18 mg/dL 7-18 [facility] Squamous epithelial cells de tection in urine sediment by light microscopyOrdered By: Smith Ho on 11-23-2023 Epithelial cells.squamous LM Ql (Urine sed) 0-5 SEEN /hpf 5-10 [facility] Thin prep Papanicolaou smear with manual screeningOrdered By: Smith Ho on 11-23-2023 Thin prep Papanicolaou smear with manual screening 7 5-15 [facility] Urine blood detectionOrdered By: Smith Ho on 11-23-2023 RBC Ql (U) 250 /ul Negative [facility] Urine clarityOrdered By: Migue Ho on 11-23-2023 Clarity (U) Cloudy Clear [facility] Urine color determinationOrd ered By: Smith Ho on 11-23-2023 Color (U) Yellow Yellow [facility] Urine glucose detectionOrder ed By: Smith Ho on 11-23-2023 Glucose Ql (U) Normal mg/dl Normal [facility] Urine leukocyte esterase det ection by dipstickOrdered By: Smith Ho on 11-23-2023 Leukocyte esterase Test strip Ql (U) 500 /ul Negative [facility] Urine pHOrdered By: Smith Zaldivar gharanza on 11-23-2023 pH (U) 6.0 [pH] 5.0 - 8.0 [facility] Urine sediment bacteria coun t by microscopy (number/high power field)Ordered By: Smith Ho on 11-23-2023 Bacteria LM.HPF (Urine sed) [#/Area] 4 /[HPF] None Seen [facility] Urine specific gravity measu rementOrdered By: Smith Ho on 11-23-2023 Specific gravity (U) [Rel density] 1.010 1.002-1.03 0 [facility] Urine urobilinogen measureme ntOrdered By: Smith Ho on 11-23-2023 Urobilinogen Ql (U) Normal mg/dl Normal [facility] CNPNon 08-22-2023 CNPN Normal [facility] CBC W Auto Differential pane l (Bld)on 08-18-2023 Basophils (Bld) [#/Vol] 0.08 10*3/uL Normal <0.11 [facility] Comment on above: Order Comment: Speci men Type: BLOOD SPECIMENOrdering Facility: [facility] Address: [address] [place] [address] Performed By: #### 5 7021-8 ####[facility] [id number] [place] [address] [place] Basophils/100 WBC (Bld) 1.3 % Normal [facility] Comment on above: Order Comment: Speci men Type: BLOOD SPECIMENOrdering Facility: [facility] Address: [address] [place] [address] Performed By: #### 5 7021-8 ####[facility] H[facility]ITALLIA [id number] [place] [address] [place] Differential cell count method Nom (Bld) Auto Normal [facility] Comment on above: Order Comment: Speci men Type: BLOOD SPECIMENOrdering Facility: [facility] Address: [address] [place] [address] Performed By: #### 5 7021-8 ####[facility] [id number] [place] [address] [place] Eosinophils (Bld) [#/Vol] 0.21 10*3/uL Normal <0.46 [facility] Comment on above: Order Comment: Speci men Type: BLOOD SPECIMENOrdering Facility: [facility] Address: [address] [place] [address] Performed By: #### 5 7021-8 ####[facility] [id number] [place] [address] [place] Eosinophils/100 WBC (Bld) 3.4 % Normal [facility] Comment on above: Order Comment: Speci men Type: BLOOD SPECIMENOrdering Facility: [facility] Address: [address] [place] [address] Performed By: #### 5 7021-8 ####[facility] [id number] [place] [address] [place] Erythrocyte distribution width (RBC) [Ratio] 15.9 % High 11.5-15.0 [facility] Comment on above: Order Comment: Speci men Type: BLOOD SPECIMENOrdering Facility: [facility] Address: [address] [place] [address] Performed By: #### 5 7021-8 ####[facility]ITALNCLI [id number] [place] [address] [place] Hematocrit (Bld) [Volume fraction] 40.1 % Normal 36.0-46.0 [facility] Comment on above: Order Comment: Speci men Type: BLOOD SPECIMENOrdering Facility: [facility] Address: [address] [place] [address] Performed By: #### 5 7021-8 ####[facility]ITALNCSPAN[facility] [id number] [place] [address] [place] Hemoglobin (Bld) [Mass/Vol] 12.7 g/dL Normal 11.5-15.5 [facility] Comment on above: Order Comment: Speci men Type: BLOOD SPECIMENOrdering Facility: [facility] Address: [address] [place] [address] Performed By: #### 5 7021-8 ####[facility] [id number] [place] [address] [place] Immature granulocytes (Bld) [#/Vol] 10*3/uL Normal <0.10 [facility] Comment on above: Order Comment: Speci men Type: BLOOD SPECIMENOrdering Facility: [facility] Address: [address] [place] [address] Performed By: #### 5 7021-8 ####[facility] HOSPITALNCLI [id number] [place] [address] [place] Immature granulocytes/100 WBC (Bld) 0.2 % Normal [facility] Comment on above: Order Comment: Speci men Type: BLOOD SPECIMENOrdering Facility: [facility] Address: [address] [place] [address] Performed By: #### 5 7021-8 ####[facility] [id number] [place] [address] [place] Lymphocytes (Bld) [#/Vol] 2.16 10*3/uL Normal 1.00-4.00 [facility] Comment on above: Order Comment: Speci men Type: BLOOD SPECIMENOrdering Facility: [facility] Address: [address] [place] [address] Performed By: #### 5 7021-8 ####[facility] MGRAY BROOKNCLIA [id number] [address] [place] [facility] Lymphocytes/100 WBC (Bld) 35.0 % Normal [facility] Comment on above: Order Comment: Speci men Type: BLOOD SPECIMENOrdering Facility: [facility] Address: [address] [place] [address] Performed By: #### 5 7021-8 ####[facility]ITALNCLIA [id number] [place] [address] [place] MCH (RBC) [Entitic mass] 31.5 pg Normal 26.0-34.0 [facility] Comment on above: Order Comment: Speci men Type: BLOOD SPECIMENOrdering Facility: [facility] Address: [address] [place] [address] Performed By: #### 5 7021-8 ####[facility]ITALNCLIA [id number] [place] [address] [place] MCHC (RBC) [Mass/Vol] 31.7 g/dL Normal 30.5-36.0 [facility] Comment on above: Order Comment: Speci men Type: BLOOD SPECIMENOrdering Facility: [facility] Address: [address] [place] [address] Performed By: #### 5 7021-8 ####[facility]ITALNCLIA [id number] [place] [address] [place] MCV (RBC) [Entitic vol] 99.5 fL Normal 80.0-100.0 [facility] Comment on above: Order Comment: Speci men Type: BLOOD SPECIMENOrdering Facility: [facility] Address: [address] [place] [address] Performed By: #### 5 7021-8 ####[facility] [id number] [place] [address] [place] Monocytes (Bld) [#/Vol] 0.47 10*3/uL Normal <0.87 [facility] Comment on above: Order Comment: Speci men Type: BLOOD SPECIMENOrdering Facility: [facility] Address: [address] [place] [address] Performed By: #### 5 7021-8 ####[facility] HOSPITALA [id number] [place] [address] [place] Monocytes/100 WBC (Bld) 7.6 % Normal [facility] Comment on above: Order Comment: Speci men Type: BLOOD SPECIMENOrdering Facility: [facility] Address: [address] [place] [address] Performed By: #### 5 7021-8 ####[facility] [id number] [place] [address] [place] Neutrophils (Bld) [#/Vol] 3.24 10*3/uL Normal 1.45-7.50 [facility] Comment on above: Order Comment: Speci men Type: BLOOD SPECIMENOrdering Facility: [facility] Address: [address] [place] [address] Performed By: #### 5 7021-8 ####[facility]ITALLIA [id number] [place] [address] [place] Neutrophils/100 WBC (Bld) 52.5 % Normal [facility] Comment on above: Order Comment: Speci men Type: BLOOD SPECIMENOrdering Facility: [facility] Address: [address] [place] [address] Performed By: #### 5 7021-8 ####[facility]ITALLIA [id number] [place] [address] [place] Nucleated RBC (Bld) [#/Vol] 10*3/uL Normal <0.01 [facility] Comment on above: Order Comment: Speci men Type: BLOOD SPECIMENOrdering Facility: [facility] Address: [address] [place] [address] Performed By: #### 5 7021-8 ####[facility] MGAniaNCFARZANA [id number] [place] [address] [place] Nucleated RBC/100 WBC (Bld) [Ratio] 0.0 /100 WBC Normal [facility] Comment on above: Order Comment: Speci men Type: BLOOD SPECIMENOrdering Facility: [facility] Address: [address] [place] [address] Performed By: #### 5 7021-8 ####[facility]OSPITALNCLIDavid [id number] [place] [address] [place] Platelet mean volume (Bld) [Entitic vol] 10.0 fL Normal 9.0-12.7 [facility] Comment on above: Order Comment: Speci men Type: BLOOD SPECIMENOrdering Facility: [facility] Address: [address] [place] [address] Performed By: #### 5 7021-8 ####[facility]ITALNCLIA [id number] [place] [address] [place] Platelets (Bld) [#/Vol] 272 10*3/uL Normal 150-400 [facility] Comment on above: Order Comment: Speci men Type: BLOOD SPECIMENOrdering Facility: [facility] Address: [address] [place] [address] Performed By: #### 5 7021-8 ####[facility]ITALNCLIA [id number] [place] [address] [place] RBC (Bld) [#/Vol] 4.03 10*6/uL Normal 3.90-5.20 [facility] Comment on above: Order Comment: Speci men Type: BLOOD SPECIMENOrdering Facility: [facility] Address: [address] [place] [address] Performed By: #### 5 7021-8 ####[facility] [id number] [place] [address] [place] WBC (Bld) [#/Vol] 6.17 10*3/uL Normal 3.70-11.00 [facility] Comment on above: Order Comment: Speci men Type: BLOOD SPECIMENOrdering Facility: [facility] Address: [address] [place] [address] Performed By: #### 5 7021-8 ####[facility]ITALNCSPAN[facility] [id number] [address] [place] CNOVon 08-18-2023 CNOV Normal [facility] Cancer Ag125 SerPl-aCncon Cancer Ag 125 Qn 6 [arb'U]/mL Normal <39 [facility] Comment on above: Order Comment: Speci men Type: BLOOD SPECIMENOrdering Facility: [facility] Address: [address] [place] [address] Result Comment: CA 1 25 test methodology [...] (CA 125 II) [package insert V 1.0 Mexican]. [employer], [place], [place] (May 2015) Performed By: #### 3 016-3, LIPNF, 95746-3 ####[facility] LABCLIA [id number] [address] [place]#### 91799-8 ####[facility]OS[facility]ITALNCLIA [id number] [place] [address] [place] Comprehensive metabolic 2000 panelon 08-18-2023 Albumin [Mass/Vol] 4.9 g/dL Normal 3.9-4.9 [facility] Comment on above: Order Comment: Speci men Type: BLOOD SPECIMENOrdering Facility: [facility] Address: [address] [place] [address] Performed By: #### 3 016-3, LIPNF, 02827-1 ####[facility] LABCLIA [id number] [place] [address] [place]#### 86798-0 ####[facility] MILLTOWNCLIA [id number] [place] [address] [place] ALP [Catalytic activity/Vol] 108 U/L Normal 34-123 [facility] Comment on above: Order Comment: Speci men Type: BLOOD SPECIMENOrdering Facility: [facility] Address: [address] [place] [address] Performed By: #### 3 016-3, LIPNF, 40461-5 ####[facility] LABCLIA [id number] [place] [address] [place]#### 18065-7 ####[facility] MILLWNCLIA [id number] [place] [address] [place] ALT [Catalytic activity/Vol] 17 U/L Normal 7-38 [facility] Comment on above: Order Comment: Speci men Type: BLOOD SPECIMENOrdering Facility: [facility] Address: [address] [place] [address] Performed By: #### 3 016-3, LIPNF, 97375-3 ####[facility] LABCLIA [id number] [place] [address] [place]#### 68635-5 ####[facility] MILLTOWNCLIA [id number] [place] [address] [place] Anion gap [Moles/Vol] 12 mmol/L Normal 9-18 [facility] Comment on above: Order Comment: Speci men Type: BLOOD SPECIMENOrdering Facility: [facility] Address: [address] [place] [address] Performed By: #### 3 016-3, LIPNF, 86114-4 ####[facility] LABCLIA [id number] [place] [address] [place]#### 28476-9 ####[facility] MILLTOWNCLIA [id number] [place] [address] [place] AST [Catalytic activity/Vol] 25 U/L Normal 13-35 [facility] Comment on above: Order Comment: Speci men Type: BLOOD SPECIMENOrdering Facility: [facility] Address: [address] [place] [address] Performed By: #### 3 016-3, LIPNF, 71808-2 ####[facility] LABCLIA [id number] [place] [address] [place]#### 40419-1 ####[facility] MILLTOWNCLIA [id number] [place] [address] [place] Bilirubin [Mass/Vol] 0.4 mg/dL Normal 0.2-1.3 [facility] Comment on above: Order Comment: Speci men Type: BLOOD SPECIMENOrdering Facility: [facility] Address: [address] [place] [address] Performed By: #### 3 016-3, LIPNF, 14701-6 ####[facility] LABCLIA [id number] [place] [address] [place]#### 91462-6 ####[facility] MILLTOWNCLIA [id number] [place] [address] [place] Calcium [Mass/Vol] 9.8 mg/dL Normal 8.5-10.2 [facility] Comment on above: Order Comment: Speci men Type: BLOOD SPECIMENOrdering Facility: [facility] Address: [address] [place] [address] Performed By: #### 3 016-3, LIPNF, 87945-5 ####[facility] LABCLIA [id number] [place] [address] [place]#### 12881-2 ####[facility] MILLTOWNCLIA [id number] [place] [address] [place] Chloride [Moles/Vol] 99 mmol/L Normal 97-105 [facility] Comment on above: Order Comment: Speci men Type: BLOOD SPECIMENOrdering Facility: [facility] Address: [address] [place] [address] Performed By: #### 3 016-3, LIPNF, 93426-9 ####[facility] LABCLIA [id number] [place] [address] [place]#### 69595-1 ####[facility] MILLTOWNCLIA [id number] [place] [address] [place] CO2 [Moles/Vol] 26 mmol/L Normal 22-30 [facility] Comment on above: Order Comment: Speci men Type: BLOOD SPECIMENOrdering Facility: [facility] Address: [address] [place] [address] Performed By: #### 3 016-3, LIPNF, 55933-0 ####[facility] LABCLIA [id number] [place] [address] [place]#### 35013-9 ####[facility] MILLTOWNCLIA [id number] [place] [address] [place] Creatinine [Mass/Vol] 0.72 mg/dL Normal 0.58-0.96 [facility] Comment on above: Order Comment: Speci men Type: BLOOD SPECIMENOrdering Facility: [facility] Address: [address] [place] [address] Performed By: #### 3 016-3, LIPPADMINI, 11915-9 ####[facility] LABCLIA [id number] [place] [address] [place]#### 64134-7 ####[facility] [id number] [place] [address] [place] Creatinine and Glomerular filtration rate.predicted panel (S/P/Bld) 83 mL/min/1.73m??? Normal >=60 [facility] Comment on above: Order Comment: Zay men Type: BLOOD SPECIMENOrdering Facility: [facility] Address: [address] [place] [address] Result Comment: Marlyn mated Glomerular Filtration Rate [...] GFR. Performed By: #### 3 016-3, LIPNF, 74978-1 ####[facility] LABCLIA [id number] [place] [address] [place]#### 27742-9 ####[facility]ITALNCLIA [id number] [place] [address] [place] Glucose [Mass/Vol] 112 mg/dL High 74-99 [facility] Comment on above: Order Comment: Speci men Type: BLOOD SPECIMENOrdering Facility: [facility] Address: [address] [place] [address] Result Comment: The [place] [employer] (ADA) provides guidance for cutoff [...] Standards of Medical Care in Diabetes 2016, [place] [employer]. Diabetes Care. 2016.39(Suppl 1). Performed By: #### 3 016-3, LIPNF, 67254-7 ####[facility] LABCLIA [id number] [place] [address] [place]#### 56263-0 ####[facility] HOSPITALLIA [id number] [place] [address] [place] Potassium [Moles/Vol] 4.3 mmol/L Normal 3.7-5.1 [facility] Comment on above: Order Comment: Speci men Type: BLOOD SPECIMENOrdering Facility: [facility] Address: [address] [place] [address] Performed By: #### 3 016-3, LIPNF, 87967-0 ####[facility] LABCLIA [id number] [place] [address] [place]#### 92206-7 ####[facility]WNCL[facility] [id number] [place] [address] [place] Protein [Mass/Vol] 8.7 g/dL High 6.3-8.0 [facility] Comment on above: Order Comment: Speci men Type: BLOOD SPECIMENOrdering Facility: [facility] Address: [address] [place] [address] Performed By: #### 3 016-3, LIPNF, 49544-8 ####[facility] LABCLIA [id number] [place] [address] [place]#### 35171-2 ####[facility]CL[facility] [id number] [place] [address] [place] Sodium [Moles/Vol] 137 mmol/L Normal 136-144 [facility] Comment on above: Order Comment: Speci men Type: BLOOD SPECIMENOrdering Facility: [facility] Address: [address] [place] [address] Performed By: #### 3 016-3, LIPNF, 93763-2 ####[facility] LABCLIA [id number] [place] [address] [place]#### 39219-2 ####[facility]CL[facility] [id number] [place] [address] [place] Urea nitrogen [Mass/Vol] 18 mg/dL Normal 7-21 [facility] Comment on above: Order Comment: Speci men Type: BLOOD SPECIMENOrdering Facility: [facility] Address: [address] [place] [address] Performed By: #### 3 016-3, LIPNF, 53301-3 ####[facility] LABCLIA [id number] [place] [address] [place]#### 91860-6 ####[facility] MILLWNCLIA [id number] [place] [address] [place] LIPID PANEL, NONFASTINGon Cholesterol [Mass/Vol] 201 mg/dL High <200 [facility] Comment on above: Order Comment: Speci men Type: BLOOD SPECIMENOrdering Facility: [facility] Address: [address] [place] [address] Result Comment: <200 mg/dL, Desirable 200-239 mg/dL, Borderline high>239 mg/dL, High Performed By: #### 3 016-3, LIPNF, 82252-8 ####[facility] LABCLIA [id number] [place] [address] [place]#### 62438-1 ####[facility] MILLWNCLIA [id number] [place] [address] [place] HDL CHOLESTEROL, NF 81 mg/dL Normal >39 [facility] Comment on above: Order Comment: Speci men Type: BLOOD SPECIMENOrdering Facility: [facility] Address: [address] [place] [address] Result Comment: 40-5 9 mg/dL, Acceptable>59 mg/dL, High: Negative risk factor for coronary heart disease<40 mg/dL, Low: Positive risk factor for coronary heart disease Performed By: #### 3 016-3, LIPNF, 90090-6 ####[facility] LABCLIA [id number] [place] [address] [place]#### 07763-8 ####[facility]ITALNCLIA [id number] [place] [address] [place] LDL CHOLESTEROL, NF 96 mg/dL Normal <100 [facility] Comment on above: Order Comment: Speci men Type: BLOOD SPECIMENOrdering Facility: [facility] Address: [address] [place] [address] Result Comment: <100 mg/dL, Optimal 100-129 mg/dL, Near optimal/above optimal 130-159 mg/dL, Borderline high 160-189 mg/dL, High>189 mg/dL, Very highSecondary prevention optimal LDL Cholesterol levels are recommended to be < 70 mg/dL Performed By: #### 3 016-3, LIPNF, 26244-4 ####[facility] LABCLIA [id number] [place] [address] [place]#### 47078-7 ####[facility] MILLWNCLIA [id number] [place] [address] [place] LDL/HDL RATIO, NF 1.19 mg/dL Normal <2.54 [facility] Comment on above: Order Comment: Speci men Type: BLOOD SPECIMENOrdering Facility: [facility] Address: [address] [place] [address] Result Comment: Kapil raymond:1. National Cholesterol Education Program ATP III Guideline At-A-Glance Quick Desk Reference: National Heart, Lung, and Blood [place]. National Institutes of Health. 2001: NIH Publication No. 01-3305.2. An International Atherosclerosis Society position paper: global recommendations for the management of dyslipidemia: executive summary, Atherosclerosis. 2014: 232(2):410-413. Performed By: #### 3 016-3, LIPNF, 36454-8 ####[facility] LABCLIA [id number] [place] [address] [place]#### 08012-0 ####[facility] MILLTOWNCLIA [id number] [place] [address] [place] NON HDL CHOL, NF 120 mg/dL Normal <130 [facility] Comment on above: Order Comment: Speci men Type: BLOOD SPECIMENOrdering Facility: [facility] Address: [address] [place], [place] [address] [address] Result Comment: <130 mg/dL, Optimal 130-159 mg/dL, Near optimal/above optimal 160-189 mg/dL, Borderline high 190-219 mg/dL, High>219 mg/dL, Very highSecondary prevention optimal non HDL Cholesterol levels are recommended to be <100 mg/dL Performed By: #### 3 016-3, LIPNF, 29045-4 ####[facility] LABCLIA [id number] [place] [address] [place]#### 15318-9 ####[facility] MILLTOWNCLIA [id number] [place] [address] [place] T CHOL/HDL RATIO NF 2.48 mg/dL Normal <5.10 [facility] Comment on above: Order Comment: Speci men Type: BLOOD SPECIMENOrdering Facility: [facility] Address: [address] [place] [address] Performed By: #### 3 016-3, LIPNF, 16027-6 ####[facility] LABCLIA [id number] [place] [address] [place]#### 59062-1 ####[facility] MILLTOWNCLIA [id number] [place] [address] [place] TRIGLYCERIDES, NF 118 mg/dL Normal <150 [facility] Comment on above: Order Comment: Speci men Type: BLOOD SPECIMENOrdering Facility: [facility] Address: [address] [place] [address] Result Comment: <150 mg/dL, Normal 150-199 mg/dL, Borderline high 200-499 mg/dL, High>499 mg/dL, Very high Performed By: #### 3 016-3, LIPNF, 10542-1 ####[facility] LABCLIA [id number] [place] [address] [place]#### 65366-2 ####[facility]ITAL[facility] [id number] [place] [address] [place] VLDL CHOLESTEROL, NF 24 mg/dL Normal <30 [facility] Comment on above: Order Comment: Speci men Type: BLOOD SPECIMENOrdering Facility: [facility] Address: [address] [place] [address] Performed By: #### 3 016-3, LIPNF, 81314-6 ####[facility] LABCLIA [id number] [place] [address] [place]#### 81537-0 ####[facility] MILLTOWNCLIA [id number] [place] [address] [place] Magnesium SerPl-mCncon 08-18 Magnesium [Mass/Vol] 2.2 mg/dL Normal 1.7-2.3 [facility] Comment on above: Order Comment: Speci men Type: BLOOD SPECIMENOrdering Facility: [facility] Address: [address] [place] [address] Performed By: #### 1 9123-9 ####[facility] [id number] [place] [id number] [place] PAIN PANEL, UR QUANTon 08-18 7-Llhfrhjaiu-4,5-Dimet hyl-3,3-Diphenylpyrrol idine (EDDP) Confirm (U) [Mass/Vol] <6 Normal <6 [facility] Comment on above: Order Comment: Speci men Type: URINE SPECIMENOrdering Facility: [facility] Address: [address] [place] [address] Result Comment: EDDP is a metabolite of methadone. Performed By: #### L [id number] ####[facility] LABIA [id number] [address] [place] 6-Monoacetylmorphine (6-SUNNI) (U) [Mass/Vol] <5 Normal <5 [facility] Comment on above: Order Comment: Speci men Type: URINE SPECIMENOrdering Facility: [facility] Address: [address] [place] [address] Result Comment: 6-MA M (6-monoacetylmorphine, also known as 6-acetylmorphine) is a unique metabolite of heroin. Presence of 6-SUNNI indicates use of heroin. 6-SUNNI is further metabolized to morphine and absence of 6-SUNNI does not rule out the use of heroin. Performed By: #### L [id number] ####[facility] LABIA [id number] [place] [address] [place] Amphetamine Confirm (U) [Mass/Vol] <5 Normal <5 [facility] Comment on above: Order Comment: Speci men Type: URINE SPECIMENOrdering Facility: [facility] Address: [address] [place] [address] Performed By: #### L [id number] ####[facility] [id number] [place] [address] [place] Benzoylecgonine Confirm (U) [Mass/Vol] <24 Normal <24 [facility] Comment on above: Order Comment: Speci men Type: URINE SPECIMENOrdering Facility: [facility] Address: [address] [place] [address] Result Comment: Kenneth oylecgonine is a metabolite of cocaine. Performed By: #### L [id number] ####[facility] [id number] [place] [address] [place] Buprenorphine (U) [Mass/Vol] <20 Normal <20 [facility] Comment on above: Order Comment: Speci men Type: URINE SPECIMENOrdering Facility: [facility] Address: [address] [place] [address] Performed By: #### L [id number] ####[facility] [id number] [place] [address] [place] Cannabinoids Confirm (U) [Mass/Vol] <16 Normal <16 [facility] Comment on above: Order Comment: Speci men Type: URINE SPECIMENOrdering Facility: [facility] Address: [address] [place] [address] Result Comment: Tetr ahydrocannabinol carboxylic acid (THCA) is a metabolite of mqrzb-4-dywznnftogowrxpjmxxh which is the main active component of marijuana. Performed By: #### L [id number] ####[facility] [id number] [place] [address] [place] Codeine Confirm (U) [Mass/Vol] <11 Normal <11 [facility] Comment on above: Order Comment: Speci men Type: URINE SPECIMENOrdering Facility: [facility] Address: [address] [place] [address] Performed By: #### L [id number] ####[facility] LABIA [id number] [address] STATES [facility] Dihydrocodeine Confirm (U) [Mass/Vol] <5 Normal <5 [facility] Comment on above: Order Comment: Speci men Type: URINE SPECIMENOrdering Facility: [facility] Address: [address] [place] [address] Performed By: #### L [id number] ####[facility] LABIA [id number] [place] [address] [place] fentaNYL Confirm (U) [Mass/Vol] <6 Normal <6 [facility] Comment on above: Order Comment: Speci men Type: URINE SPECIMENOrdering Facility: [facility] Address: [address] [place] [address] Performed By: #### L [id number] ####[facility] [id number] [address] [place] HYDROcodone Confirm (U) [Mass/Vol] <8 Normal <8 [facility] Comment on above: Order Comment: Speci men Type: URINE SPECIMENOrdering Facility: [facility] Address: [address] [place] [address] Result Comment: Hydr ocodone is a metabolite of dihydrocodeine. Performed By: #### L [id number] ####[facility] LABIA [id number] [address] [place] HYDROmorphone Confirm (U) [Mass/Vol] <5 Normal <5 [facility] Comment on above: Order Comment: Speci men Type: URINE SPECIMENOrdering Facility: [facility] Address: [address] [place] [address] Result Comment: Hydr omorphone is a metabolite of hydrocodone. Performed By: #### L [id number] ####[facility] LABIA [id number] [place] [address] [place] Methadone Confirm (U) [Mass/Vol] <16 Normal <16 [facility] Comment on above: Order Comment: Speci men Type: URINE SPECIMENOrdering Facility: [facility] Address: [address] [place] [address] Performed By: #### L [id number] ####[facility] [id number] [address] [place] Methamphetamine Confirm (U) [Mass/Vol] <8 Normal <8 [facility] Comment on above: Order Comment: Speci men Type: URINE SPECIMENOrdering Facility: [facility] Address: [address] [place] [address] Performed By: #### L [id number] ####[facility] [id number] [address] [place] Morphine Confirm (U) [Mass/Vol] <10 Normal <10 [facility] Comment on above: Order Comment: Speci men Type: URINE SPECIMENOrdering Facility: [facility] Address: [address] [place] [address] Result Comment: Morp shahida is a metabolite of codeine and heroin. Performed By: #### L [id number] ####[facility] [id number] [address] [place] [facility] Norbuprenorphine (U) [Mass/Vol] <20 Normal <20 [facility] Comment on above: Order Comment: Speci men Type: URINE SPECIMENOrdering Facility: [facility] Address: [address] [place] [address] Result Comment: Norb uprenorphine is the primary active metabolite of buprenorphine. Performed By: #### L [id number] ####[facility] [id number] [address] [place] Norfentanyl Confirm (U) [Mass/Vol] <6 Normal <6 [facility] Comment on above: Order Comment: Speci men Type: URINE SPECIMENOrdering Facility: [facility] Address: [address] [place] [address] Result Comment: Norf entanyl is a metabolite of fentanyl. Performed By: #### L [id number] ####[facility] [id number] [place] [address] [place] Nortramadol (U) [Mass/Vol] >5000 High <20 [facility] Comment on above: Order Comment: Speci men Type: URINE SPECIMENOrdering Facility: [facility] Address: [address] [place] [address] Result Comment: O-De smethyltramadol is a metabolite of tramadol and its presence indicates use of a tramadol containing drug (Ultram). Performed By: #### L [id number] ####[facility] [id number] [place] [address] [place] NOTE,UR PAIN ROMAN Normal [facility] Comment on above: Order Comment: Speci men Type: URINE SPECIMENOrdering Facility: [facility] Address: [address] [place] [address] Result Comment: This test is for medical use only.This test was developed and its performance characteristics determined by [facility] Path[facility] and Laboratory Medicine [place] ([facility]). It has not been cleared or approved by the FDA. [facility] is regulated under CLIA as qualified to perform high-complexity testing. This test is used for clinical purposes. It should not be regarded as investigational or for research. Performed By: #### L [id number] ####[facility] LABIA [id number] [place] [address] [place] oxyCODONE Confirm (U) [Mass/Vol] <10 Normal <10 [facility] Comment on above: Order Comment: Speci men Type: URINE SPECIMENOrdering Facility: [facility] Address: [address] [place] [address] Performed By: #### L [id number] ####[facility] LABIA [id number] [place] [address] [place] oxyMORphone Confirm (U) [Mass/Vol] <5 Normal <5 [facility] Comment on above: Order Comment: Speci men Type: URINE SPECIMENOrdering Facility: [facility] Address: [address] [place] [address] Result Comment: Oxym orphone is a metabolite of oxycodone. Performed By: #### L [id number] ####[facility] [id number] [place] [address] [place] traMADol Confirm (U) [Mass/Vol] >5208 High <25 [facility] Comment on above: Order Comment: Speci men Type: URINE SPECIMENOrdering Facility: [facility] Address: [address] [place] [address] Result Comment: Pres ence of tramadol indicates use of a tramadol containing drug (Ultram). Tramadol is metabolized to O-Desmethyltramadol. Performed By: #### L [id number] ####[facility] [id number] [place] [address] [place] SPECIMEN VALIDITY, URINEon 0 1--2023 CHROMATE,URINE <10 Normal <50 [facility] Comment on above: Order Comment: Speci men Type: URINE SPECIMENOrdering Facility: [facility] Address: [address] [place] [address] Performed By: #### L [id number] ####[facility] LABIA [id number] [place] [address] [place] CREATININE,URINE 124.4 mg/dL Normal 20.0-300.0 [facility] Comment on above: Order Comment: Speci men Type: URINE SPECIMENOrdering Facility: [facility] Address: [address] [place] [address] Performed By: #### L [id number] ####[facility] LABIA [id number] [address] [place] NITRITES,URINE 52 mg/L Normal <500 [facility] Comment on above: Order Comment: Speci men Type: URINE SPECIMENOrdering Facility: [facility] Address: [address] [place] [address] Performed By: #### L [id number] ####[facility] LABCLIA [id number] [place] [address] [place] OXIDANTS,URINE <38 Normal <200 [facility] Comment on above: Order Comment: Speci men Type: URINE SPECIMENOrdering Facility: [facility] Address: [address] [place] [address] Performed By: #### L [id number] ####[facility] LABCLIA [id number] [place] [address] [place] pH (U) 5.8 [pH] Normal 4.5-8.0 [facility] Comment on above: Order Comment: Speci men Type: URINE SPECIMENOrdering Facility: [facility] Address: [address] [place] [address] Performed By: #### L [id number] ####[facility] LABCLIA [id number] [address] [place] SPEC GRAVITY,UR 1.017 Normal 1.003-1.03 5 [facility] Comment on above: Order Comment: Speci men Type: URINE SPECIMENOrdering Facility: [facility] Address: [address] [place] [address] Performed By: #### L [id number] ####[facility] LABCLIA [id number] [place] [address] [place] SPECIMEN VALIDITY QUALITY Specimen quality results within acceptable limits Normal [facility] Comment on above: Order Comment: Speci men Type: URINE SPECIMENOrdering Facility: [facility] Address: [address] [place] [address] Performed By: #### L [id number] ####[facility] LABCLIA [id number] [place] [address] [place] TOX SCREEN ROUT URon 10-2 024 Amphetamines Confirm (U) [Mass/Vol] Negative Normal Negative [facility] Comment on above: Order Comment: Speci men Type: URINE SPECIMENOrdering Facility: [facility] Address: [address] [place] [address] Result Comment: Cuto ff threshold at 1000 ng/mL. Performed By: #### U TOX2 ####[facility] LABCLIA [id number] [place] [address] [place] BARBITURATES, URINE Negative Normal Negative [facility] Comment on above: Order Comment: Speci men Type: URINE SPECIMENOrdering Facility: [facility] Address: [address] [place] [address] Result Comment: Cuto ff threshold at 200 ng/mL. Performed By: #### U TOX2 ####[facility] LABCLIA [id number] [place] [address] [place] BENZODIAZEPINES, UR Negative Normal Negative [facility] Comment on above: Order Comment: Speci men Type: URINE SPECIMENOrdering Facility: [facility] Address: [address] [place] [address] Result Comment: Cuto ff threshold at 200 ng/mL. Performed By: #### U TOX2 ####[facility] LABIA [id number] [place] [address] [place] Cannabinoids Screen Ql (U) Negative Normal Negative [facility] Comment on above: Order Comment: Speci men Type: URINE SPECIMENOrdering Facility: [facility] Address: [address] [place] [address] Result Comment: Cuto ff threshold at 50 ng/mL. Performed By: #### U TOX2 ####[facility] LABCLIA [id number] [place] [address] [place] Cocaine Ql (U) Negative Normal Negative [facility] Comment on above: Order Comment: Speci men Type: URINE SPECIMENOrdering Facility: [facility] Address: [address] [place] [address] Result Comment: Cuto ff threshold at 300 ng/mL. Performed By: #### U TOX2 ####[facility] LABCLIA [id number] [place] [address] [place] Ethanol (U) [Mass/Vol] <11 Normal <11 Cl [facility] Comment on above: Order Comment: Speci men Type: URINE SPECIMENOrdering Facility: [facility] Address: [address] [place] [address] Performed By: #### U TOX2 ####[facility] LABCLIA [id number] [place] [address] [place] Opiates Screen Ql (U) Negative Normal Negative [facility] Comment on above: Order Comment: Speci men Type: URINE SPECIMENOrdering Facility: [facility] Address: [address] [place] [address] Result Comment: Cuto ff threshold at 300 ng/mL. Performed By: #### U TOX2 ####[facility] LABIA [id number] [place] [address] [place] oxyCODONE cutoff Screen (U) [Mass/Vol] Negative Normal Negative [facility] Comment on above: Order Comment: Speci men Type: URINE SPECIMENOrdering Facility: [facility] Address: [address] [place] [address] Result Comment: Cuto ff threshold at 100 ng/mL. Performed By: #### U TOX2 ####[facility] LABIA [id number] [place] [address] [place] Phencyclidine Ql (U) Negative Normal Negative [facility] Comment on above: Order Comment: Speci men Type: URINE SPECIMENOrdering Facility: [facility] Address: [address] [place] [address] Result Comment: Cuto ff threshold at 25 ng/mL. Performed By: #### U TOX2 ####[facility] LABCLIA [id number] [place] [address] [place] TSH SerPl-aCncon 08-18-2023 TSH Qn 3.510 m[IU]/L Normal 0.270-4.20 0 [facility] Comment on above: Order Comment: Speci men Type: BLOOD SPECIMENOrdering Facility: [facility] Address: [address] [place] [address] Performed By: #### 3 016-3, LIPNF, 47667-2 ####[facility] LABCLIA [id number] [place] [address] [place]#### 26292-2 ####[facility] [id number] [place] [address] [place] CBC W Auto Differential pane l (Bld)on 07-26-2023 Basophils (Bld) [#/Vol] 0.09 10*3/uL Normal <0.11 [facility] Comment on above: Order Comment: Speci men Type: BLOOD SPECIMENOrdering Facility: [facility] Address: [address] [place] [address] Performed By: #### 5 7021-8 ####[facility] [id number] [place] [address] [place] Basophils/100 WBC (Bld) 2.0 % Normal [facility] Comment on above: Order Comment: Speci men Type: BLOOD SPECIMENOrdering Facility: [facility] Address: [address] [place] [address] Performed By: #### 5 7021-8 ####[facility] [id number] [place] [address] [place] Differential cell count method Nom (Bld) Auto Normal [facility] Comment on above: Order Comment: Speci men Type: BLOOD SPECIMENOrdering Facility: [facility] Address: [address] [place] [address] Performed By: #### 5 7021-8 ####[facility]ILLWNCL[facility] [id number] [place] [address] [place] Eosinophils (Bld) [#/Vol] 0.04 10*3/uL Normal <0.46 [facility] Comment on above: Order Comment: Speci men Type: BLOOD SPECIMENOrdering Facility: [facility] Address: [address] [place] [address] Performed By: #### 5 7021-8 ####[facility] [id number] [place] [address] [place] Eosinophils/100 WBC (Bld) 0.9 % Normal [facility] Comment on above: Order Comment: Speci men Type: BLOOD SPECIMENOrdering Facility: [facility] Address: [address] [place] [address] Performed By: #### 5 7021-8 ####[facility] [id number] [place] [address] [place] Erythrocyte distribution width (RBC) [Ratio] 16.9 % High 11.5-15.0 [facility] Comment on above: Order Comment: Speci men Type: BLOOD SPECIMENOrdering Facility: [facility] Address: [address] [place] [address] Performed By: #### 5 7021-8 ####[facility] MILL[facility]CL[facility] [id number] [place] [address] [place] Hematocrit (Bld) [Volume fraction] 37.4 % Normal 36.0-46.0 [facility] Comment on above: Order Comment: Speci men Type: BLOOD SPECIMENOrdering Facility: [facility] Address: [address] [place] [address] Performed By: #### 5 7021-8 ####[facility] [id number] [place] [address] [place] Hemoglobin (Bld) [Mass/Vol] 12.0 g/dL Normal 11.5-15.5 [facility] Comment on above: Order Comment: Speci men Type: BLOOD SPECIMENOrdering Facility: [facility] Address: [address] [place] [address] Performed By: #### 5 7021-8 ####[facility] [id number] [place] [address] [place] [place] Immature granulocytes (Bld) [#/Vol] 10*3/uL Normal <0.10 [facility] Comment on above: Order Comment: Speci men Type: BLOOD SPECIMENOrdering Facility: [facility] Address: [address] [place] [address] Performed By: #### 5 7021-8 ####[facility] [id number] [place] [address] [place] Immature granulocytes/100 WBC (Bld) 0.0 % Normal [facility] Comment on above: Order Comment: Speci men Type: BLOOD SPECIMENOrdering Facility: [facility] Address: [address] [place] [address] Performed By: #### 5 7021-8 ####[facility] [id number] [place] [address] [place] Lymphocytes (Bld) [#/Vol] 2.35 10*3/uL Normal 1.00-4.00 [facility] Comment on above: Order Comment: Speci men Type: BLOOD SPECIMENOrdering Facility: [facility] Address: [address] [place] [address] Performed By: #### 5 7021-8 ####[facility]ITALLIA [id number] [place] [address] [place] Lymphocytes/100 WBC (Bld) 51.8 % Normal [facility] Comment on above: Order Comment: Speci men Type: BLOOD SPECIMENOrdering Facility: [facility] Address: [address] [place] [address] Performed By: #### 5 7021-8 ####[facility] BROOKNCFARZANA [id number] [address] [facility] MCH (RBC) [Entitic mass] 32.1 pg Normal 26.0-34.0 [facility] Comment on above: Order Comment: Speci men Type: BLOOD SPECIMENOrdering Facility: [facility] Address: [address] [place] [address] Performed By: #### 5 7021-8 ####[facility] [id number] [place] [address] [place] MCHC (RBC) [Mass/Vol] 32.1 g/dL Normal 30.5-36.0 [facility] Comment on above: Order Comment: Speci men Type: BLOOD SPECIMENOrdering Facility: [facility] Address: [address] [place] [address] Performed By: #### 5 7021-8 ####[facility]ITALA [id number] [place] [address] [place] MCV (RBC) [Entitic vol] 100.0 fL Normal 80.0-100.0 [facility] Comment on above: Order Comment: Speci men Type: BLOOD SPECIMENOrdering Facility: [facility] Address: [address] [place] [address] Performed By: #### 5 7021-8 ####[facility] [id number] [place] [address] [place] Monocytes (Bld) [#/Vol] 0.50 10*3/uL Normal <0.87 [facility] Comment on above: Order Comment: Speci men Type: BLOOD SPECIMENOrdering Facility: [facility] Address: [address] [place] [address] Performed By: #### 5 7021-8 ####[facility] MILLTOWNCLIA [id number] [place] [address] [place] Monocytes/100 WBC (Bld) 11.0 % Normal [facility] Comment on above: Order Comment: Speci men Type: BLOOD SPECIMENOrdering Facility: [facility] Address: [address] [place] [address] Performed By: #### 5 7021-8 ####[facility] [id number] [place] [address] [place] Neutrophils (Bld) [#/Vol] 1.56 10*3/uL Normal 1.45-7.50 [facility] Comment on above: Order Comment: Speci men Type: BLOOD SPECIMENOrdering Facility: [facility] Address: [address] [place] [address] Performed By: #### 5 7021-8 ####[facility]ITALNCLIA [id number] [place] [address] [place] Neutrophils/100 WBC (Bld) 34.3 % Normal [facility] Comment on above: Order Comment: Speci men Type: BLOOD SPECIMENOrdering Facility: [facility] Address: [address] [place] [address] Performed By: #### 5 7021-8 ####[facility]CL[facility] [id number] [place] [address] [place] Nucleated RBC (Bld) [#/Vol] 10*3/uL Normal <0.01 [facility] Comment on above: Order Comment: Speci men Type: BLOOD SPECIMENOrdering Facility: [facility] Address: [address] [place] [address] Performed By: #### 5 7021-8 ####[facility]ITALNCLIA [id number] [place] [address] [place] Nucleated RBC/100 WBC (Bld) [Ratio] 0.0 /100 WBC Normal [facility] Comment on above: Order Comment: Speci men Type: BLOOD SPECIMENOrdering Facility: [facility] Address: [address] [place] [address] Performed By: #### 5 7021-8 ####[facility] [id number] [place] [address] [place] Platelet mean volume (Bld) [Entitic vol] 9.7 fL Normal 9.0-12.7 [facility] Comment on above: Order Comment: Speci men Type: BLOOD SPECIMENOrdering Facility: [facility] Address: [address] [place] [address] Performed By: #### 5 7021-8 ####[facility] [id number] [place] [address] [place] Platelets (Bld) [#/Vol] 270 10*3/uL Normal 150-400 [facility] Comment on above: Order Comment: Speci men Type: BLOOD SPECIMENOrdering Facility: [facility] Address: [address] [place] [address] Performed By: #### 5 7021-8 ####[facility] [id number] [place] [address] [place] RBC (Bld) [#/Vol] 3.74 10*6/uL Low 3.90-5.20 [facility] Comment on above: Order Comment: Speci men Type: BLOOD SPECIMENOrdering Facility: [facility] Address: [address] [place] [address] Performed By: #### 5 7021-8 ####[facility] [id number] [place] [address] [place] WBC (Bld) [#/Vol] 4.54 10*3/uL Normal 3.70-11.00 [facility] Comment on above: Order Comment: Speci men Type: BLOOD SPECIMENOrdering Facility: [facility] Address: [place] [address] Performed By: #### 5 7021-8 ####[facility] [id number] [place] [address] [place] CNOVSPon 07-26-2023 CNOVSP Normal [facility] Cancer Ag125 SerPl-aCncon Cancer Ag 125 Qn 6 [arb'U]/mL Normal <39 [facility] Comment on above: Order Comment: Speclisbeth sandoval Type: BLOOD SPECIMENOrdering Facility: [facility] Address: [place] [address] Result Comment: CA 1 25 test methodology [...] (CA 125 II) [package insert V 1.0 Mexican]. [employer], [place], [place] (May 2015) Performed By: #### 1 0334-1 ####[facility] LABCLIA [id number] [facility] [id number] [id number] [place] Comprehensive metabolic 2000 panelon 07-26-2023 Albumin [Mass/Vol] 4.3 g/dL Normal 3.9-4.9 [facility] Comment on above: Order Comment: Speclisbeth [facility] Type: BLOOD SPECIMENOrdering Facility: [facility] Address: [address] [place] [id number] Performed By: #### 2 4323-8, 38467-5 ####[facility]ITALNCLIA [id number] [place] [address] [place] ALP [Catalytic activity/Vol] 99 U/L Normal 34-123 [facility] Comment on above: Order Comment: Speci men Type: BLOOD SPECIMENOrdering Facility: [facility] Address: [address] [place] [address] Performed By: #### 2 4323-8, ####[facility] PAULINE MILLTOWNCLIA [id number] [place] [address] [place] ALT [Catalytic activity/Vol] 19 U/L Normal 7-38 [facility] Comment on above: Order Comment: Speci men Type: BLOOD SPECIMENOrdering Facility: [facility] Address: [address] [place] [address] Performed By: #### 2 432-8, ####[facility] MILLWNCLIA [id number] [place] [address] [place] Anion gap [Moles/Vol] 12 mmol/L Normal 9-18 [facility] Comment on above: Order Comment: Speci men Type: BLOOD SPECIMENOrdering Facility: [facility] Address: [address] [place] [address] Performed By: #### 2 4323-8, ####[facility] MILLWNCLIA [id number] [place] [address] [place] AST [Catalytic activity/Vol] 26 U/L Normal 13-35 [facility] Comment on above: Order Comment: Speci men Type: BLOOD SPECIMENOrdering Facility: [facility] Address: [address] [place] [id number] Performed By: #### 2 4323-8, ####[facility]ITALNCLIA [id number] [place] [address] [place] Bilirubin [Mass/Vol] 0.3 mg/dL Normal 0.2-1.3 [facility] Comment on above: Order Comment: Speci men Type: BLOOD SPECIMENOrdering Facility: [facility] Address: [address] [place] [address] Performed By: #### 2 4323-8, ####[facility] PAULINE MILLTOWNCLIA [id number] [place] [address] [place] Calcium [Mass/Vol] 10.2 mg/dL Normal 8.5-10.2 [facility] Comment on above: Order Comment: Speci men Type: BLOOD SPECIMENOrdering Facility: [facility] Address: [address] [place] [id number] Performed By: #### 2 432-8, ####[facility] MILLTOWNCLIA [id number] [place] [address] [place] Chloride [Moles/Vol] 103 mmol/L Normal 97-105 [facility] Comment on above: Order Comment: Speci men Type: BLOOD SPECIMENOrdering Facility: [facility] Address: [address] [place] [id number] Performed By: #### 2 4328, ####[facility] MILLTOWNCLIA [id number] [place] [address] [place] CO2 [Moles/Vol] 22 mmol/L Normal 22-30 [facility] Comment on above: Order Comment: Speci men Type: BLOOD SPECIMENOrdering Facility: [facility] Address: [address] [place] [address] Performed By: #### 2 4328, ####[facility] MILLTOWNCLIA [id number] [place] [address] [place] Creatinine [Mass/Vol] 0.61 mg/dL Normal 0.58-0.96 [facility] Comment on above: Order Comment: Speci men Type: BLOOD SPECIMENOrdering Facility: [facility] Address: [address] [place] [address] Performed By: #### 2 4328, ####[facility] [id number] [place] [address] [place] Creatinine and Glomerular filtration rate.predicted panel (S/P/Bld) 88 mL/min/1.73m??? Normal >=60 [facility] Comment on above: Order Comment: Zay sandoval Type: BLOOD SPECIMENOrdering Facility: [facility] Address: [address] [place] [address] Result Comment: Marlyn mated Glomerular Filtration Rate [...] actual GFR. Performed By: #### 2 4323-8, 27535-5 ####[facility] [id number] [place] [address] [place] Glucose [Mass/Vol] 102 mg/dL High 74-99 [facility] Comment on above: Order Comment: Zay sandoval Type: BLOOD SPECIMENOrdering Facility: [facility] Address: [address] [place] [address] Result Comment: The [place] [employer] (ADA) provides guidance for cutoff [...] Standards of Medical Care in Diabetes 2016, [place] [employer]. Diabetes Care. 2016.39(Suppl 1). Performed By: #### 2 4323-8, 81001-9 ####[facility] [id number] [place] [address] [place] Potassium [Moles/Vol] 4.5 mmol/L Normal 3.7-5.1 [facility] Comment on above: Order Comment: Speci men Type: BLOOD SPECIMENOrdering Facility: [facility] Address: [address] [place] [address] Performed By: #### 2 4323-8, 49347-3 ####[facility] MILLTOWANYILIA [id number] [place] [address] [place] Protein [Mass/Vol] 7.7 g/dL Normal 6.3-8.0 [facility] Comment on above: Order Comment: Speci men Type: BLOOD SPECIMENOrdering Facility: [facility] Address: [address] [place] [address] Performed By: #### 2 4323-8, ####[facility] MILLSTEFANILIA [id number] [place] [address] [place] Sodium [Moles/Vol] 137 mmol/L Normal 136-144 [facility] Comment on above: Order Comment: Speci men Type: BLOOD SPECIMENOrdering Facility: [facility] Address: [address] [place] [address] Performed By: #### 2 4323-8, ####[facility] MILLSTEFANILIDavid [id number] [place] [address] [place] Urea nitrogen [Mass/Vol] 26 mg/dL High 7-21 [facility] Comment on above: Order Comment: Speci men Type: BLOOD SPECIMENOrdering Facility: [facility] Address: [address] [place] [address] Performed By: #### 2 4323-8, ####[facility] MILLJUANWANYILIA [id number] [place] [address] [place] Magnesium SerPl-ncon 07-26 Magnesium [Mass/Vol] 2.1 mg/dL Normal 1.7-2.3 [facility] Comment on above: Order Comment: Speci men Type: BLOOD SPECIMENOrdering Facility: [facility] Address: [address] [place] [address] Performed By: #### 2 4323-8, 26938-5 ####[facility] MILLTOWNCLIA [id number] [place] [address] [place] CNPNon 07-16-2023 CNPN Normal [facility] Basic metabolic 2000 panelon 07-14-2023 Anion gap [Moles/Vol] 11 mmol/L Normal 9-18 [facility] Comment on above: Order Comment: Speci men Type: BLOOD SPECIMENOrdering Facility: [facility] Address: [address] [place] [address] Performed By: #### 2 4321-2 ####[facility] MILLWNCLIA [id number] [place] [address] [place] Calcium [Mass/Vol] 9.8 mg/dL Normal 8.5-10.2 [facility] Comment on above: Order Comment: Speci men Type: BLOOD SPECIMENOrdering Facility: [facility] Address: [address] [place] [address] Performed By: #### 2 4321-2 ####[facility] MILLTOWNCLIA [id number] [place] [address] [place] Chloride [Moles/Vol] 103 mmol/L Normal 97-105 [facility] Comment on above: Order Comment: Speci men Type: BLOOD SPECIMENOrdering Facility: [facility] Address: [address] [place] [address] Performed By: #### 2 4321-2 ####[facility] MILLTOWNCLIA [id number] [place] [address] [place] CO2 [Moles/Vol] 26 mmol/L Normal 22-30 [facility] Comment on above: Order Comment: Speci men Type: BLOOD SPECIMENOrdering Facility: [facility] Address: [address] [place] [address] Performed By: #### 2 4321-2 ####[facility] PAULINE MGRAY BROOKNCFARZANA [id number] [place] [address] [place] Creatinine [Mass/Vol] 0.63 mg/dL Normal 0.58-0.96 [facility] Comment on above: Order Comment: Speci men Type: BLOOD SPECIMENOrdering Facility: [facility] Address: [address] [place] [address] Performed By: #### 2 4321-2 ####[facility]ITALNCLI [id number] [place] [address] [place] Creatinine and Glomerular filtration rate.predicted panel (S/P/Bld) 88 mL/min/1.73m??? Normal >=60 [facility] Comment on above: Order Comment: Speci men Type: BLOOD SPECIMENOrdering Facility: [facility] Address: [address] [place] [address] Result Comment: Marlyn mated Glomerular Filtration Rate [...] Performed By: #### 2 4321-2 ####[facility]ITALNCLIA [id number] [place] [address] [place] Glucose [Mass/Vol] 104 mg/dL High 74-99 [facility] Comment on above: Order Comment: Speci men Type: BLOOD SPECIMENOrdering Facility: [facility] Address: [address] [place] [address] Result Comment: The [place] [employer] (ADA) provides guidance for cutoff [...] Standards of Medical Care in Diabetes 2016, [place] [employer]. Diabetes Care. 2016.39(Suppl 1). Performed By: #### 2 4321-2 ####[facility]ONWKSLIA [id number] [place] [address] [place] Potassium [Moles/Vol] 4.4 mmol/L Normal 3.7-5.1 [facility] Comment on above: Order Comment: Speci men Type: BLOOD SPECIMENOrdering Facility: [facility] Address: [address] [place] [address] Performed By: #### 2 4321-2 ####[facility] [id number] [place] [address] [place] Sodium [Moles/Vol] 140 mmol/L Normal 136-144 [facility] Comment on above: Order Comment: Speci men Type: BLOOD SPECIMENOrdering Facility: [facility] Address: [address] [place] [address] Performed By: #### 2 4321-2 ####[facility]ITALLIA [id number] [place] [address] [place] Urea nitrogen [Mass/Vol] 20 mg/dL Normal 7-21 [facility] Comment on above: Order Comment: Speci men Type: BLOOD SPECIMENOrdering Facility: [facility] Address: [address] [place] [address] Performed By: #### 2 4321-2 ####[facility]ITALLIA [id number] [place] [address] [place] CBC W Auto Differential pane l (Bld)on 07-14-2023 Basophils (Bld) [#/Vol] 10*3/uL Normal <0.11 [facility] Comment on above: Order Comment: Speci men Type: BLOOD SPECIMENOrdering Facility: [facility] Address: [address] [place] [address] Performed By: #### 5 7021-8 ####[facility] [id number] [place] [address] [place] Basophils/100 WBC (Bld) 0.3 % Normal [facility] Comment on above: Order Comment: Speci men Type: BLOOD SPECIMENOrdering Facility: [facility] Address: [address] [place] [address] Performed By: #### 5 7021-8 ####[facility] [id number] [place] [address] [place] Differential cell count method Nom (Bld) Auto Normal [facility] Comment on above: Order Comment: Speci men Type: BLOOD SPECIMENOrdering Facility: [facility] Address: [address] [place] [address] Performed By: #### 5 7021-8 ####[facility] [id number] [place] [address] [place] Eosinophils (Bld) [#/Vol] 0.03 10*3/uL Normal <0.46 [facility] Comment on above: Order Comment: Speci men Type: BLOOD SPECIMENOrdering Facility: [facility] Address: [address] [place] [address] Performed By: #### 5 7021-8 ####[facility] H[facility]ITALLIA [id number] [place] [address] [place] Eosinophils/100 WBC (Bld) 1.0 % Normal [facility] Comment on above: Order Comment: Speci men Type: BLOOD SPECIMENOrdering Facility: [facility] Address: [address] [place] [address] Performed By: #### 5 7021-8 ####[facility] [id number] [place] [address] [place] Erythrocyte distribution width (RBC) [Ratio] 16.1 % High 11.5-15.0 [facility] Comment on above: Order Comment: Speci men Type: BLOOD SPECIMENOrdering Facility: [facility] Address: [address] [place] [address] Performed By: #### 5 7021-8 ####[facility] HOSPITALNCFARZANA [id number] [place] [address] [place] Hematocrit (Bld) [Volume fraction] 35.8 % Low 36.0-46.0 [facility] Comment on above: Order Comment: Speci men Type: BLOOD SPECIMENOrdering Facility: [facility] Address: [address] [place] [address] Performed By: #### 5 7021-8 ####[facility] HOSPITALDavid [id number] [place] [address] [place] Hemoglobin (Bld) [Mass/Vol] 11.6 g/dL Normal 11.5-15.5 [facility] Comment on above: Order Comment: Speci men Type: BLOOD SPECIMENOrdering Facility: [facility] Address: [address] [place] [address] Performed By: #### 5 7021-8 ####[facility] HOSPITALA [id number] [place] [address] [place] Immature granulocytes (Bld) [#/Vol] 10*3/uL Normal <0.10 [facility] Comment on above: Order Comment: Speci men Type: BLOOD SPECIMENOrdering Facility: [facility] Address: [address] [place] [address] Performed By: #### 5 7021-8 ####[facility] HOSPITALLIA [id number] [place] [address] [place] Immature granulocytes/100 WBC (Bld) 0.3 % Normal [facility] Comment on above: Order Comment: Speci men Type: BLOOD SPECIMENOrdering Facility: [facility] Address: [address] [place] [address] Performed By: #### 5 7021-8 ####[facility] [id number] [place] [address] [place] Lymphocytes (Bld) [#/Vol] 1.62 10*3/uL Normal 1.00-4.00 [facility] Comment on above: Order Comment: Speci men Type: BLOOD SPECIMENOrdering Facility: [facility] Address: [address] [place] [address] Performed By: #### 5 7021-8 ####[facility] [id number] [place] [address] [place] Lymphocytes/100 WBC (Bld) 54.0 % Normal [facility] Comment on above: Order Comment: Speci men Type: BLOOD SPECIMENOrdering Facility: [facility] Address: [address] [place] [address] Performed By: #### 5 7021-8 ####[facility] [id number] [place] [address] [place] MCH (RBC) [Entitic mass] 31.8 pg Normal 26.0-34.0 [facility] Comment on above: Order Comment: Speci men Type: BLOOD SPECIMENOrdering Facility: [facility] Address: [address] [place] [address] Performed By: #### 5 7021-8 ####[facility]ITALNCSPAN[facility] [id number] [place] [address] [place] MCHC (RBC) [Mass/Vol] 32.4 g/dL Normal 30.5-36.0 [facility] Comment on above: Order Comment: Speci men Type: BLOOD SPECIMENOrdering Facility: [facility] Address: [address] [place] [address] Performed By: #### 5 7021-8 ####[facility] [id number] [place] [address] [place] MCV (RBC) [Entitic vol] 98.1 fL Normal 80.0-100.0 [facility] Comment on above: Order Comment: Speci men Type: BLOOD SPECIMENOrdering Facility: [facility] Address: [address] [place] [address] Performed By: #### 5 7021-8 ####[facility] [id number] [place] [address] [place] Monocytes (Bld) [#/Vol] 0.23 10*3/uL Normal <0.87 [facility] Comment on above: Order Comment: Speci men Type: BLOOD SPECIMENOrdering Facility: [facility] Address: [address] [place] [address] Performed By: #### 5 7021-8 ####[facility] [id number] [place] [address] [place] Monocytes/100 WBC (Bld) 7.7 % Normal [facility] Comment on above: Order Comment: Speci men Type: BLOOD SPECIMENOrdering Facility: [facility] Address: [address] [place] [address] Performed By: #### 5 7021-8 ####[facility] [id number] [place] [address] [place] Neutrophils (Bld) [#/Vol] 1.10 10*3/uL Low 1.45-7.50 [facility] Comment on above: Order Comment: Speci men Type: BLOOD SPECIMENOrdering Facility: [facility] Address: [address] [place] [address] Performed By: #### 5 7021-8 ####[facility] MILLTOWNCLIA [id number] [place] [address] [place] Neutrophils/100 WBC (Bld) 36.7 % Normal [facility] Comment on above: Order Comment: Speci men Type: BLOOD SPECIMENOrdering Facility: [facility] Address: [address] [place] [address] Performed By: #### 5 7021-8 ####[facility] [id number] [place] [address] [place] Nucleated RBC (Bld) [#/Vol] 10*3/uL Normal <0.01 [facility] Comment on above: Order Comment: Speci men Type: BLOOD SPECIMENOrdering Facility: [facility] Address: [address] [place] [address] Performed By: #### 5 7021-8 ####[facility] [id number] [place] [address] [place] Nucleated RBC/100 WBC (Bld) [Ratio] 0.0 /100 WBC Normal [facility] Comment on above: Order Comment: Speci men Type: BLOOD SPECIMENOrdering Facility: [facility] Address: [address] [place] [address] Performed By: #### 5 7021-8 ####[facility] [id number] [place] [address] [place] Platelet mean volume (Bld) [Entitic vol] 9.1 fL Normal 9.0-12.7 [facility] Comment on above: Order Comment: Speci men Type: BLOOD SPECIMENOrdering Facility: [facility] Address: [address] [place] [address] Performed By: #### 5 7021-8 ####[facility]ITALNCLIA [id number] [place] [address] [place] Platelets (Bld) [#/Vol] 373 10*3/uL Normal 150-400 [facility] Comment on above: Order Comment: Speci men Type: BLOOD SPECIMENOrdering Facility: [facility] Address: [address] [place] [address] Performed By: #### 5 7021-8 ####[facility] [id number] [place] [address] [place] RBC (Bld) [#/Vol] 3.65 10*6/uL Low 3.90-5.20 [facility] Comment on above: Order Comment: Speci men Type: BLOOD SPECIMENOrdering Facility: [facility] Address: [address] [place] [address] Performed By: #### 5 7021-8 ####[facility] [id number] [place] [address] [place] WBC (Bld) [#/Vol] 3.00 10*3/uL Low 3.70-11.00 [facility] Comment on above: Order Comment: Speci men Type: BLOOD SPECIMENOrdering Facility: [facility] Address: [address] [place] [address] Performed By: #### 5 7021-8 ####[facility] [id number] [place] [address] [place] CNPNon 07-12-2023 CNPN Normal [facility] CBC W Auto Differential pane l (Bld)on 07-07-2023 Basophils (Bld) [#/Vol] 0.03 10*3/uL Normal <0.11 [facility] Comment on above: Order Comment: Speci men Type: BLOOD SPECIMENOrdering Facility: [facility] Address: [address] [place] [address] Performed By: #### 5 7021-8 ####[facility] [id number] [place] [address] [place] Basophils/100 WBC (Bld) 1.0 % Normal [facility] Comment on above: Order Comment: Speci men Type: BLOOD SPECIMENOrdering Facility: [facility] Address: [address] [place] [address] Performed By: #### 5 7021-8 ####[facility] MGRAY BROOKANYILIA [id number] [place] [address] [place] Differential cell count method Nom (Bld) Auto Normal [facility] Comment on above: Order Comment: Speci men Type: BLOOD SPECIMENOrdering Facility: [facility] Address: [address] [place] [address] Performed By: #### 5 7021-8 ####[facility] [id number] [place] [address] [place] Eosinophils (Bld) [#/Vol] 0.05 10*3/uL Normal <0.46 [facility] Comment on above: Order Comment: Speci men Type: BLOOD SPECIMENOrdering Facility: [facility] Address: [address] [place] [address] Performed By: #### 5 7021-8 ####[facility]ITALL[facility] [id number] [place] [address] [place] Eosinophils/100 WBC (Bld) 1.6 % Normal [facility] Comment on above: Order Comment: Speci men Type: BLOOD SPECIMENOrdering Facility: [facility] Address: [address] [place] [address] Performed By: #### 5 7021-8 ####[facility]ITALNCLIA [id number] [place] [address] [place] Erythrocyte distribution width (RBC) [Ratio] 15.3 % High 11.5-15.0 [facility] Comment on above: Order Comment: Speci men Type: BLOOD SPECIMENOrdering Facility: [facility] Address: [address] [place] [address] Performed By: #### 5 7021-8 ####[facility] MARYLU [id number] [place] [address] [place] Hematocrit (Bld) [Volume fraction] 36.1 % Normal 36.0-46.0 [facility] Comment on above: Order Comment: Speci men Type: BLOOD SPECIMENOrdering Facility: [facility] Address: [address] [place] [address] Performed By: #### 5 7021-8 ####[facility] HOSPITALANYIFARZANA [id number] [place] [address] [place] Hemoglobin (Bld) [Mass/Vol] 11.6 g/dL Normal 11.5-15.5 [facility] Comment on above: Order Comment: Speci men Type: BLOOD SPECIMENOrdering Facility: [facility] Address: [address] [place] [address] Performed By: #### 5 7021-8 ####[facility] MGRAY BROOKANYIDavid [id number] [place] [address] [place] Immature granulocytes (Bld) [#/Vol] 10*3/uL Normal <0.10 [facility] Comment on above: Order Comment: Speci men Type: BLOOD SPECIMENOrdering Facility: [facility] Address: [address] [place] [address] Performed By: #### 5 7021-8 ####[facility] HOSPITALANYILIA [id number] [place] [address] [place] Immature granulocytes/100 WBC (Bld) 0.0 % Normal [facility] Comment on above: Order Comment: Speci men Type: BLOOD SPECIMENOrdering Facility: [facility] Address: [address] [place] [address] Performed By: #### 5 7021-8 ####[facility] MILLWNCLIA [id number] [place] [address] [place] Lymphocytes (Bld) [#/Vol] 1.82 10*3/uL Normal 1.00-4.00 [facility] Comment on above: Order Comment: Speci men Type: BLOOD SPECIMENOrdering Facility: [facility] Address: [address] [place] [address] Performed By: #### 5 7021-8 ####[facility]ITALL[facility] [id number] [place] [address] [place] Lymphocytes/100 WBC (Bld) 58.7 % Normal [facility] Comment on above: Order Comment: Speci men Type: BLOOD SPECIMENOrdering Facility: [facility] Address: [address] [place] [address] Performed By: #### 5 7021-8 ####[facility]ITALL[facility] [id number] [place] [address] [place] MCH (RBC) [Entitic mass] 31.7 pg Normal 26.0-34.0 [facility] Comment on above: Order Comment: Speci men Type: BLOOD SPECIMENOrdering Facility: [facility] Address: [address] [place] [address] Performed By: #### 5 7021-8 ####[facility]ITALLIA [id number] [place] [address] [place] MCHC (RBC) [Mass/Vol] 32.1 g/dL Normal 30.5-36.0 [facility] Comment on above: Order Comment: Speci men Type: BLOOD SPECIMENOrdering Facility: [facility] Address: [address] [place] [address] Performed By: #### 5 7021-8 ####[facility]ITALNCLIA [id number] [place] [address] [place] MCV (RBC) [Entitic vol] 98.6 fL Normal 80.0-100.0 [facility] Comment on above: Order Comment: Speci men Type: BLOOD SPECIMENOrdering Facility: [facility] Address: [address] [place] [address] Performed By: #### 5 7021-8 ####[facility]ITALNCLIA [id number] [place] [address] [place] Monocytes (Bld) [#/Vol] 0.21 10*3/uL Normal <0.87 [facility] Comment on above: Order Comment: Speci men Type: BLOOD SPECIMENOrdering Facility: [facility] Address: [address] [place] [address] Performed By: #### 5 7021-8 ####[facility] [id number] [place] [address] [place] Monocytes/100 WBC (Bld) 6.8 % Normal [facility] Comment on above: Order Comment: Speci men Type: BLOOD SPECIMENOrdering Facility: [facility] Address: [address] [place] [address] Performed By: #### 5 7021-8 ####[facility] [id number] [place] [address] [place] Neutrophils (Bld) [#/Vol] 0.99 10*3/uL Low 1.45-7.50 [facility] Comment on above: Order Comment: Speci men Type: BLOOD SPECIMENOrdering Facility: [facility] Address: [address] [place] [address] Performed By: #### 5 7021-8 ####[facility] [id number] [place] [address] [place] Neutrophils/100 WBC (Bld) 31.9 % Normal [facility] Comment on above: Order Comment: Speci men Type: BLOOD SPECIMENOrdering Facility: [facility] Address: [address] [place] [address] Performed By: #### 5 7021-8 ####[facility] MGRAY BROOKANYILIA [id number] [place] [address] [place] Nucleated RBC (Bld) [#/Vol] 10*3/uL Normal <0.01 [facility] Comment on above: Order Comment: Speci men Type: BLOOD SPECIMENOrdering Facility: [facility] Address: [address] [place] [address] Performed By: #### 5 7021-8 ####[facility]ITALL[facility] [id number] [place] [address] [place] Nucleated RBC/100 WBC (Bld) [Ratio] 0.0 /100 WBC Normal [facility] Comment on above: Order Comment: Speci men Type: BLOOD SPECIMENOrdering Facility: [facility] Address: [address] [place] [address] Performed By: #### 5 7021-8 ####[facility]ITALL[facility] [id number] [place] [address] [place] Platelet mean volume (Bld) [Entitic vol] 9.5 fL Normal 9.0-12.7 [facility] Comment on above: Order Comment: Speci men Type: BLOOD SPECIMENOrdering Facility: [facility] Address: [address] [place] [address] Performed By: #### 5 7021-8 ####[facility]ALL[facility] [id number] [place] [address] [place] Platelets (Bld) [#/Vol] 190 10*3/uL Normal 150-400 [facility] Comment on above: Order Comment: Speci men Type: BLOOD SPECIMENOrdering Facility: [facility] Address: [address] [place] [address] Performed By: #### 5 7021-8 ####[facility]PITALLIA [id number] [place] [address] [place] RBC (Bld) [#/Vol] 3.66 10*6/uL Low 3.90-5.20 [facility] Comment on above: Order Comment: Speci men Type: BLOOD SPECIMENOrdering Facility: [facility] Address: [address] [place] [address] Performed By: #### 5 7021-8 ####[facility] [id number] [place] [address] [place] WBC (Bld) [#/Vol] 3.10 10*3/uL Low 3.70-11.00 [facility] Comment on above: Order Comment: Speci men Type: BLOOD SPECIMENOrdering Facility: [facility] Address: [address] [place] [address] Performed By: #### 5 7021-8 ####[facility] [id number] [place] [address] [place] CNOVSPon 07-07-2023 CNOVSP Normal [facility] Cancer Ag125 SerPl-aCncon Cancer Ag 125 Qn 6 [arb'U]/mL Normal <39 [facility] Comment on above: Order Comment: Speci men Type: BLOOD SPECIMENOrdering Facility: [facility] Address: [address] [place] [address] Result Comment: CA 1 25 test methodology [...] (CA 125 II) [package insert V 1.0 Mexican]. [employer], [place], [place] (May 2015) Performed By: #### 1 0334-1 ####[facility] LABCLIA [id number] [id number] [address] [place] Comprehensive metabolic 2000 panelon 07-07-2023 Albumin [Mass/Vol] 4.4 g/dL Normal 3.9-4.9 [facility] Comment on above: Order Comment: Speci men Type: BLOOD SPECIMENOrdering Facility: [facility] Address: [address] [place] [address] Performed By: #### 1 9123-9, 42680-2 ####[facility]ALL[facility] [id number] [place] [address] [place] ALP [Catalytic activity/Vol] 93 U/L Normal 34-123 [facility] Comment on above: Order Comment: Speci men Type: BLOOD SPECIMENOrdering Facility: [facility] Address: [address] [place] [address] Performed By: #### 1 9123-9, 75460-5 ####[facility]ITALL[facility] [id number] [place] [address] [place] ALT [Catalytic activity/Vol] 9 U/L Normal 7-38 [facility] Comment on above: Order Comment: Speci men Type: BLOOD SPECIMENOrdering Facility: [facility] Address: [address] [place] [address] Performed By: #### 1 9123-9, 04258-9 ####[facility]ITALL[facility] [id number] [place] [address] [place] Anion gap [Moles/Vol] 9 mmol/L Normal 9-18 [facility] Comment on above: Order Comment: Speci men Type: BLOOD SPECIMENOrdering Facility: [facility] Address: [address] [place] [address] Performed By: #### 1 9123-9, 67483-6 ####[facility]ITALNCLIA [id number] [place] [address] [place] AST [Catalytic activity/Vol] 18 U/L Normal 13-35 [facility] Comment on above: Order Comment: Speci men Type: BLOOD SPECIMENOrdering Facility: [facility] Address: [address] [place] [address] Performed By: #### 1 9123-9, ####[facility] MILLTOWNCLIA [id number] [place] [address] [place] Bilirubin [Mass/Vol] 0.4 mg/dL Normal 0.2-1.3 [facility] Comment on above: Order Comment: Speci men Type: BLOOD SPECIMENOrdering Facility: [facility] Address: [address] [place] [address] Performed By: #### 1 9123-9, ####[facility]WNCL[facility] [id number] [place] [address] [place] Calcium [Mass/Vol] 10.0 mg/dL Normal 8.5-10.2 [facility] Comment on above: Order Comment: Speci men Type: BLOOD SPECIMENOrdering Facility: [facility] Address: [address] [place] [address] Performed By: #### 1 9123-9, ####[facility]CL[facility] [id number] [place] [address] [place] Chloride [Moles/Vol] 103 mmol/L Normal 97-105 [facility] Comment on above: Order Comment: Speci men Type: BLOOD SPECIMENOrdering Facility: [facility] Address: [address] [place] [address] Performed By: #### 1 9123-9, ####[facility] PAULINE MILLTOWNCLIA [id number] [place] [address] [place] CO2 [Moles/Vol] 24 mmol/L Normal 22-30 [facility] Comment on above: Order Comment: Speci men Type: BLOOD SPECIMENOrdering Facility: [facility] Address: [address] [place] [address] Performed By: #### 1 9123-9, ####[facility] MGRAY BROOKNCLIA [id number] [place] [address] [place] Creatinine [Mass/Vol] 0.64 mg/dL Normal 0.58-0.96 [facility] Comment on above: Order Comment: Speci men Type: BLOOD SPECIMENOrdering Facility: [facility] Address: [address] [place] [address] Performed By: #### 1 9123-9, ####[facility]ITALNCLIA [id number] [place] [address] [place] Creatinine and Glomerular filtration rate.predicted panel (S/P/Bld) 87 mL/min/1.73m??? Normal >=60 [facility] Comment on above: Order Comment: Speci men Type: BLOOD SPECIMENOrdering Facility: [facility] Address: [address] [place] [address] Result Comment: Marlyn mated Glomerular Filtration Rate [...] actual GFR. Performed By: #### 1 9123-9, ####[facility]ITALNCLIA [id number] [place] [address] [place] Glucose [Mass/Vol] 102 mg/dL High 74-99 [facility] Comment on above: Order Comment: Speci men Type: BLOOD SPECIMENOrdering Facility: [facility] Address: [address] [place] [address] Result Comment: The [place] [employer] (ADA) provides guidance for cutoff [...] Standards of Medical Care in Diabetes 2016, [place] [employer]. Diabetes Care. 2016.39(Suppl 1). Performed By: #### 1 9123-9, 28873-5 ####[facility] HOSPITALANNIA [id number] [place] [address] [place] Potassium [Moles/Vol] 4.1 mmol/L Normal 3.7-5.1 [facility] Comment on above: Order Comment: Speci men Type: BLOOD SPECIMENOrdering Facility: [facility] Address: [address] [place] [address] Performed By: #### 1 9123-9, 02499-5 ####[facility] HOSPITALFARZANA [id number] [place] [address] [place] Protein [Mass/Vol] 7.7 g/dL Normal 6.3-8.0 [facility] Comment on above: Order Comment: Speci men Type: BLOOD SPECIMENOrdering Facility: [facility] Address: [address] [place] [address] Performed By: #### 1 9123-9, 03029-3 ####[facility] HOSPITALANNIA [id number] [place] [address] [place] Sodium [Moles/Vol] 136 mmol/L Normal 136-144 [facility] Comment on above: Order Comment: Speci men Type: BLOOD SPECIMENOrdering Facility: [facility] Address: [address] [place] [address] Performed By: #### 1 9123-9, 77068-3 ####[facility] MILLTOWNCLIA [id number] [place] [address] [place] Urea nitrogen [Mass/Vol] 26 mg/dL High 7-21 [facility] Comment on above: Order Comment: Speci men Type: BLOOD SPECIMENOrdering Facility: [facility] Address: [address] [place] [address] Performed By: #### 1 9123-9, 06729-9 ####[facility] MILLRAY BROOKNCLIA [id number] [place] [address] [place] Magnesium SerPl-ncon 07-07 Magnesium [Mass/Vol] 1.9 mg/dL Normal 1.7-2.3 [facility] Comment on above: Order Comment: Speci men Type: BLOOD SPECIMENOrdering Facility: [facility] Address: [address] [place] [address] Performed By: #### 1 9123-9, 99314-5 ####[facility]ITALL[facility] [id number] [place] [address] [place] CNPNon 06-17-2023 CNPN Normal [facility] CNPNon 06-11-2023 CNPN Normal [facility] Comprehensive metabolic 2000 panelon 06-10-2023 Albumin [Mass/Vol] 4.0 g/dL Normal 3.9-4.9 [facility] Comment on above: Order Comment: Speci men Type: BLOOD SPECIMENOrdering Facility: [facility] Address: [address] [place] [address] Performed By: #### 2 4323-8 ####[facility]ITALNCLIA [id number] [place] [address] [place] ALP [Catalytic activity/Vol] 90 U/L Normal 34-123 [facility] Comment on above: Order Comment: Speci men Type: BLOOD SPECIMENOrdering Facility: [facility] Address: [address] [place] [address] Performed By: #### 2 4323-8 ####[facility] MILLTOWNCLIA [id number] [place] [address] [place] ALT [Catalytic activity/Vol] 8 U/L Normal 7-38 [facility] Comment on above: Order Comment: Speci men Type: BLOOD SPECIMENOrdering Facility: [facility] Address: [address] [place] [address] Performed By: #### 2 4323-8 ####[facility]ONWNCLIA [id number] [place] [address] [place] Anion gap [Moles/Vol] 8 mmol/L Low 9-18 [facility] Comment on above: Order Comment: Speci men Type: BLOOD SPECIMENOrdering Facility: [facility] Address: [address] [place] [address] Performed By: #### 2 4323-8 ####[facility]ITALNCLIA [id number] [place] [address] [place] AST [Catalytic activity/Vol] 15 U/L Normal 13-35 [facility] Comment on above: Order Comment: Speci men Type: BLOOD SPECIMENOrdering Facility: [facility] Address: [address] [place] [address] Performed By: #### 2 4323-8 ####[facility]ONWNCL[facility] [id number] [place] [address] [place] Bilirubin [Mass/Vol] 0.4 mg/dL Normal 0.2-1.3 [facility] Comment on above: Order Comment: Speci men Type: BLOOD SPECIMENOrdering Facility: [facility] Address: [address] [place] [address] Performed By: #### 2 4323-8 ####[facility]ONWNCLIA [id number] [place] [address] [place] Calcium [Mass/Vol] 9.1 mg/dL Normal 8.5-10.2 [facility] Comment on above: Order Comment: Speci men Type: BLOOD SPECIMENOrdering Facility: [facility] Address: [address] [place] [address] Performed By: #### 2 4323-8 ####[facility] PAUL[facility] MILLTOWNCLIA [id number] [place] [address] [place] Chloride [Moles/Vol] 102 mmol/L Normal 97-105 [facility] Comment on above: Order Comment: Speci men Type: BLOOD SPECIMENOrdering Facility: [facility] Address: [address] [place] [address] Performed By: #### 2 4323-8 ####[facility]ONWKSLIA [id number] [place] [address] [place] CO2 [Moles/Vol] 27 mmol/L Normal 22-30 [facility] Comment on above: Order Comment: Speci men Type: BLOOD SPECIMENOrdering Facility: [facility] Address: [address] [place] [address] Performed By: #### 2 4323-8 ####[facility] MILLWKSLIA [id number] [place] [address] [place] Creatinine [Mass/Vol] 0.59 mg/dL Normal 0.58-0.96 [facility] Comment on above: Order Comment: Speci men Type: BLOOD SPECIMENOrdering Facility: [facility] Address: [address] [place] [address] Performed By: #### 2 4323-8 ####[facility] MILLRAY BROOKNCLIA [id number] [place] [address] [place] Creatinine and Glomerular filtration rate.predicted panel (S/P/Bld) 89 mL/min/1.73m??? Normal >=60 [facility] Comment on above: Order Comment: Speci men Type: BLOOD SPECIMENOrdering Facility: [facility] Address: [address] [place] [address] Result Comment: Marlyn mated Glomerular Filtration Rate [...] actual GFR. Performed By: #### 2 4323-8 ####[facility] [id number] [place] [address] [place] Glucose [Mass/Vol] 96 mg/dL Normal 74-99 [facility] Comment on above: Order Comment: Zay sandoval Type: BLOOD SPECIMENOrdering Facility: [facility] Address: [address] [place] [address] Result Comment: The [place] [employer] (ADA) provides guidance for cutoff [...] Standards of Medical Care in Diabetes 2016, [place] [employer]. Diabetes Care. 2016.39(Suppl 1). Performed By: #### 2 4323-8 ####[facility] [id number] [place] [address] [place] Potassium [Moles/Vol] 4.1 mmol/L Normal 3.7-5.1 [facility] Comment on above: Order Comment: Zay sandoval Type: BLOOD SPECIMENOrdering Facility: [facility] Address: [address] [place] [address] Performed By: #### 2 4323-8 ####[facility] MILLWNCLIA [id number] [place] [address] [place] Protein [Mass/Vol] 6.9 g/dL Normal 6.3-8.0 [facility] Comment on above: Order Comment: Speci men Type: BLOOD SPECIMENOrdering Facility: [facility] Address: [address] [place] [address] Performed By: #### 2 4323-8 ####[facility] HOSPITALNCLIA [id number] [place] [address] [place] Sodium [Moles/Vol] 137 mmol/L Normal 136-144 [facility] Comment on above: Order Comment: Speci men Type: BLOOD SPECIMENOrdering Facility: [facility] Address: [address] [place] [address] Performed By: #### 2 4323-8 ####[facility] HOSPITALNCLIA [id number] [place] [address] [place] Urea nitrogen [Mass/Vol] 21 mg/dL Normal 7-21 [facility] Comment on above: Order Comment: Speci men Type: BLOOD SPECIMENOrdering Facility: [facility] Address: [address] [place] [address] Performed By: #### 2 4323-8 ####[facility] HOSPITALNCLI [id number] [place] [address] [place] CNPNon 06-07-2023 CNPN Normal [facility] CNPNon 06-04-2023 CNPN Normal [facility] CA 125 BLDon 06-02-2023 Cancer Ag 125 Qn 12 [arb'U]/mL <39 U/mL [facility] CBC W Auto Differential pane l (Bld)on 06-02-2023 Basophils (Bld) [#/Vol] 0.06 10*3/uL <0.11 k/uL [facility] Basophils/100 WBC (Bld) 1.3 % [facility] Differential cell count method Nom (Bld) Auto [facility] Eosinophils (Bld) [#/Vol] 0.16 10*3/uL <0.46 k/uL [facility] Eosinophils/100 WBC (Bld) 3.5 % [facility] Erythrocyte distribution width (RBC) [Ratio] 13.3 % 11.5 - 15.0 % [facility] Hematocrit (Bld) [Volume fraction] 39.7 % 36.0 - 46.0 % [facility] Hemoglobin (Bld) [Mass/Vol] 12.5 g/dL 11.5 - 15.5 g/dL [facility] Immature granulocytes (Bld) [#/Vol] <0.10 k/uL [facility] Immature granulocytes/100 WBC (Bld) 0.2 % [facility] Lymphocytes (Bld) [#/Vol] 1.77 10*3/uL 1.00 - 4.00 k/uL [facility] Lymphocytes/100 WBC (Bld) 38.3 % [facility] MCH (RBC) [Entitic mass] 30.9 pg 26.0 - 34.0 pg [facility] MCHC (RBC) [Mass/Vol] 31.5 g/dL 30.5 - 36.0 g/dL [facility] MCV (RBC) [Entitic vol] 98.3 fL 80.0 - 100.0 fL [facility] Monocytes (Bld) [#/Vol] 0.42 10*3/uL <0.87 k/uL [facility] Monocytes/100 WBC (Bld) 9.1 % [facility] Neutrophils (Bld) [#/Vol] 2.20 10*3/uL 1.45 - 7.50 k/uL [facility] Neutrophils/100 WBC (Bld) 47.6 % [facility] Nucleated RBC (Bld) [#/Vol] <0.01 k/uL [facility] Nucleated RBC/100 WBC (Bld) [Ratio] 0.0 /100 WBC [facility] Platelet mean volume (Bld) [Entitic vol] 9.4 fL 9.0 - 12.7 fL [facility] Platelets (Bld) [#/Vol] 262 10*3/uL 150 - 400 k/uL [facility] RBC (Bld) [#/Vol] 4.04 10*6/uL 3.90 - 5.20 m/uL [facility] WBC (Bld) [#/Vol] 4.62 10*3/uL 3.70 - 11.00 k/uL [facility] Basophils (Bld) [#/Vol] 0.06 10*3/uL Normal <0.11 [facility] Comment on above: Order Comment: Speci men Type: BLOOD SPECIMENOrdering Facility: [facility] Address: [address] [place] [address] Performed By: #### 5 7021-8 ####[facility] HOSPITALA [id number] [place] [address] [place] Basophils/100 WBC (Bld) 1.3 % Normal [facility] Comment on above: Order Comment: Speci men Type: BLOOD SPECIMENOrdering Facility: [facility] Address: [address] [place] [address] Performed By: #### 5 7021-8 ####[facility] [id number] [place] [address] [place] Differential cell count method Nom (Bld) Auto Normal [facility] Comment on above: Order Comment: Speci men Type: BLOOD SPECIMENOrdering Facility: [facility] Address: [address] [place] [address] Performed By: #### 5 7021-8 ####[facility] HOSPITALA [id number] [place] [address] [place] Eosinophils (Bld) [#/Vol] 0.16 10*3/uL Normal <0.46 [facility] Comment on above: Order Comment: Speci men Type: BLOOD SPECIMENOrdering Facility: [facility] Address: [address] [place] [address] Performed By: #### 5 7021-8 ####[facility] HOSPITALLIA [id number] [place] [address] [place] Eosinophils/100 WBC (Bld) 3.5 % Normal [facility] Comment on above: Order Comment: Speci men Type: BLOOD SPECIMENOrdering Facility: [facility] Address: [address] [place] [address] Performed By: #### 5 7021-8 ####[facility] [id number] [place] [address] [place] Erythrocyte distribution width (RBC) [Ratio] 13.3 % Normal 11.5-15.0 [facility] Comment on above: Order Comment: Speci men Type: BLOOD SPECIMENOrdering Facility: [facility] Address: [address] [place] [address] Performed By: #### 5 7021-8 ####[facility]ITALNCSPAN[facility] [id number] [place] [address] [place] Hematocrit (Bld) [Volume fraction] 39.7 % Normal 36.0-46.0 [facility] Comment on above: Order Comment: Speci men Type: BLOOD SPECIMENOrdering Facility: [facility] Address: [address] [place] [address] Performed By: #### 5 7021-8 ####[facility] [id number] [place] [address] [place] Hemoglobin (Bld) [Mass/Vol] 12.5 g/dL Normal 11.5-15.5 [facility] Comment on above: Order Comment: Speci men Type: BLOOD SPECIMENOrdering Facility: [facility] Address: [address] [place] [address] Performed By: #### 5 7021-8 ####[facility] [id number] [place] [address] [place] Immature granulocytes (Bld) [#/Vol] 10*3/uL Normal <0.10 [facility] Comment on above: Order Comment: Speci men Type: BLOOD SPECIMENOrdering Facility: [facility] Address: [address] [place] [address] Performed By: #### 5 7021-8 ####[facility] HOSPITALANYILIA [id number] [place] [address] [place] [facility] Immature granulocytes/100 WBC (Bld) 0.2 % Normal [facility] Comment on above: Order Comment: Speci men Type: BLOOD SPECIMENOrdering Facility: [facility] Address: [address] [place] [address] Performed By: #### 5 7021-8 ####[facility] [id number] [place] [address] [place] Lymphocytes (Bld) [#/Vol] 1.77 10*3/uL Normal 1.00-4.00 [facility] Comment on above: Order Comment: Speci men Type: BLOOD SPECIMENOrdering Facility: [facility] Address: [address] [place] [address] Performed By: #### 5 7021-8 ####[facility] [id number] [place] [address] [place] Lymphocytes/100 WBC (Bld) 38.3 % Normal [facility] Comment on above: Order Comment: Speci men Type: BLOOD SPECIMENOrdering Facility: [facility] Address: [address] [place] [address] Performed By: #### 5 7021-8 ####[facility] [id number] [place] [address] [place] MCH (RBC) [Entitic mass] 30.9 pg Normal 26.0-34.0 [facility] Comment on above: Order Comment: Speci men Type: BLOOD SPECIMENOrdering Facility: [facility] Address: [address] [place] [address] Performed By: #### 5 7021-8 ####[facility] [id number] [place] [address] [place] MCHC (RBC) [Mass/Vol] 31.5 g/dL Normal 30.5-36.0 [facility] Comment on above: Order Comment: Speci men Type: BLOOD SPECIMENOrdering Facility: [facility] Address: [address] [place] [address] Performed By: #### 5 7021-8 ####[facility]ITALANYISPANISH FORK HOSP[facility] [id number] [place] [address] [place] MCV (RBC) [Entitic vol] 98.3 fL Normal 80.0-100.0 [facility] Comment on above: Order Comment: Speci men Type: BLOOD SPECIMENOrdering Facility: [facility] Address: [address] [place] [address] Performed By: #### 5 7021-8 ####[facility]ITALNCSPANISH [facility]K [facility] [id number] [place] [address] [place] Monocytes (Bld) [#/Vol] 0.42 10*3/uL Normal <0.87 [facility] Comment on above: Order Comment: Speci men Type: BLOOD SPECIMENOrdering Facility: [facility] Address: [address] [place] [address] Performed By: #### 5 7021-8 ####[facility] [id number] [place] [address] [place] Monocytes/100 WBC (Bld) 9.1 % Normal [facility] Comment on above: Order Comment: Speci men Type: BLOOD SPECIMENOrdering Facility: [facility] Address: [address] [place] [address] Performed By: #### 5 7021-8 ####[facility]ITALNCSPAN[facility] [id number] [place] [address] [place] Neutrophils (Bld) [#/Vol] 2.20 10*3/uL Normal 1.45-7.50 [facility] Comment on above: Order Comment: Speci men Type: BLOOD SPECIMENOrdering Facility: [facility] Address: [address] [place] [address] Performed By: #### 5 7021-8 ####[facility] MGRAY BROOKANNIA [id number] [place] [address] [place] Neutrophils/100 WBC (Bld) 47.6 % Normal [facility] Comment on above: Order Comment: Speci men Type: BLOOD SPECIMENOrdering Facility: [facility] Address: [address] [place] [address] Performed By: #### 5 7021-8 ####[facility] [id number] [place] [address] [place] Nucleated RBC (Bld) [#/Vol] 10*3/uL Normal <0.01 [facility] Comment on above: Order Comment: Speci men Type: BLOOD SPECIMENOrdering Facility: [facility] Address: [address] [place] [address] Performed By: #### 5 7021-8 ####[facility] [id number] [place] [address] [place] Nucleated RBC/100 WBC (Bld) [Ratio] 0.0 /100 WBC Normal [facility] Comment on above: Order Comment: Speci men Type: BLOOD SPECIMENOrdering Facility: [facility] Address: [address] [place] [address] Performed By: #### 5 7021-8 ####[facility] [id number] [place] [address] [place] Platelet mean volume (Bld) [Entitic vol] 9.4 fL Normal 9.0-12.7 [facility] Comment on above: Order Comment: Speci men Type: BLOOD SPECIMENOrdering Facility: [facility] Address: [address] [place] [address] Performed By: #### 5 7021-8 ####[facility]ITALNCLIA [id number] [place] [address] [place] Platelets (Bld) [#/Vol] 262 10*3/uL Normal 150-400 [facility] Comment on above: Order Comment: Speci men Type: BLOOD SPECIMENOrdering Facility: [facility] Address: [address] [place] [address] Performed By: #### 5 7021-8 ####[facility]ITALNCLIA [id number] [place] [address] [place] RBC (Bld) [#/Vol] 4.04 10*6/uL Normal 3.90-5.20 [facility] Comment on above: Order Comment: Speci men Type: BLOOD SPECIMENOrdering Facility: [facility] Address: [address] [place] [address] Performed By: #### 5 7021-8 ####[facility]PITALA [id number] [place] [address] [place] WBC (Bld) [#/Vol] 4.62 10*3/uL Normal 3.70-11.00 [facility] Comment on above: Order Comment: Speci men Type: BLOOD SPECIMENOrdering Facility: [facility] Address: [address] [place] [address] Performed By: #### 5 7021-8 ####[facility]PITALA [id number] [place] [address] [place] CNOVSPon 06-02-2023 CNOVSP Normal [facility] CNPNon 06-02-2023 CNPN Normal [facility] Cancer Ag125 SerPl-aCncon Cancer Ag 125 Qn 12 [arb'U]/mL Normal <39 [facility] Comment on above: Order Comment: Speci men Type: BLOOD SPECIMENOrdering Facility: [facility] Address: [address] [place] [address] Result Comment: CA 1 25 test methodology [...] (CA 125 II) [package insert V 1.0 Mexican]. [employer], [place], [place] (May 2015) Performed By: #### 1 0334-1 ####[facility] LABCLIA [id number] [place] [address] [place] Comprehensive metabolic 2000 panelon 06-02-2023 Albumin [Mass/Vol] 4.3 g/dL 3.9 - 4.9 g/dL [facility] ALP [Catalytic activity/Vol] 87 U/L 34 - 123 U/L [facility] ALT [Catalytic activity/Vol] 9 U/L 7 - 38 U/L [facility] Anion gap [Moles/Vol] 11 mmol/L 9 - 18 mmol/L [facility] AST [Catalytic activity/Vol] 15 U/L 13 - 35 U/L [facility] Bilirubin [Mass/Vol] 0.2 mg/dL 0.2 - 1 .3 mg/dL [facility] Calcium [Mass/Vol] 9.4 mg/dL 8.5 - 10. 2 mg/dL [facility] Chloride [Moles/Vol] 101 mmol/L 97 - 10 5 mmol/L [facility] CO2 [Moles/Vol] 26 mmol/L 22 - 30 mmol/L [facility] Creatinine [Mass/Vol] 0.66 mg/dL 0.58 - 0.96 mg/dL [facility] Estimated Glomerular Filtration Rate 87 mL/min/1.73m >=60 mL/min/1.7 3m [facility] Glucose [Mass/Vol] 116 mg/dL High 74 - 99 mg/dL [facility] Potassium [Moles/Vol] 4.1 mmol/L 3.7 - 5.1 mmol/L [facility] Protein [Mass/Vol] 7.3 g/dL 6.3 - 8.0 g/dL [facility] Sodium [Moles/Vol] 138 mmol/L 136 - 144 mmol/L [facility] Urea nitrogen [Mass/Vol] 17 mg/dL 7 - 21 mg/dL [facility] Albumin [Mass/Vol] 4.3 g/dL Normal 3.9-4.9 [facility] Comment on above: Order Comment: Speci men Type: BLOOD SPECIMENOrdering Facility: [facility] Address: [address] [place] [address] Performed By: #### 1 9123-9, 64997-9 ####[facility] MILLTOWNCLIA [id number] [place] [address] [place] ALP [Catalytic activity/Vol] 87 U/L Normal 34-123 [facility] Comment on above: Order Comment: Speci men Type: BLOOD SPECIMENOrdering Facility: [facility] Address: [address] [place] [address] Performed By: #### 1 9123-9, 28252-7 ####[facility] HOSPITALLIA [id number] [place] [address] [place] ALT [Catalytic activity/Vol] 9 U/L Normal 7-38 [facility] Comment on above: Order Comment: Speci men Type: BLOOD SPECIMENOrdering Facility: [facility] Address: [address] [place] [address] Performed By: #### 1 9123-9, 13034-4 ####[facility]ONWNCLIA [id number] [place] [address] [place] Anion gap [Moles/Vol] 11 mmol/L Normal 9-18 [facility] Comment on above: Order Comment: Speci men Type: BLOOD SPECIMENOrdering Facility: [facility] Address: [address] [place] [address] Performed By: #### 1 9123-9, 52618-0 ####[facility] HOSPITALANYILIA [id number] [place] [id number] [place] AST [Catalytic activity/Vol] 15 U/L Normal 13-35 [facility] Comment on above: Order Comment: Speci men Type: BLOOD SPECIMENOrdering Facility: [facility] Address: [address] [place] [address] Performed By: #### 1 9123-9, 00050-9 ####[facility] PAULINE MILLTOWNCLIA [id number] [place] [address] [place] Bilirubin [Mass/Vol] 0.2 mg/dL Normal 0.2-1.3 [facility] Comment on above: Order Comment: Speci men Type: BLOOD SPECIMENOrdering Facility: [facility] Address: [address] [place] [address] Performed By: #### 1 9123-9, 24488-6 ####[facility] PAULINE MILLTOWNCLIA [id number] [place] [address] [place] Calcium [Mass/Vol] 9.4 mg/dL Normal 8.5-10.2 [facility] Comment on above: Order Comment: Speci men Type: BLOOD SPECIMENOrdering Facility: [facility] Address: [address] [place] [address] Performed By: #### 1 9123-9, 64394-3 ####[facility] PAULINE MILLTOWNCLIA [id number] [place] [address] [place] Chloride [Moles/Vol] 101 mmol/L Normal 97-105 [facility] Comment on above: Order Comment: Speci men Type: BLOOD SPECIMENOrdering Facility: [facility] Address: [address] [place] [address] Performed By: #### 1 9123-9, 14103-7 ####[facility] PAUL[facility] MILLTOWNCLIA [id number] [place] [address] [place] CO2 [Moles/Vol] 26 mmol/L Normal 22-30 [facility] Comment on above: Order Comment: Speci men Type: BLOOD SPECIMENOrdering Facility: [facility] Address: [address] [place] [address] Performed By: #### 1 9123-9, ####[facility] JESSCIAWNCLIA [id number] [place] [address] [place] Creatinine [Mass/Vol] 0.66 mg/dL Normal 0.58-0.96 [facility] Comment on above: Order Comment: Speci men Type: BLOOD SPECIMENOrdering Facility: [facility] Address: [address] [place] [address] Performed By: #### 1 9123-9, ####[facility] HOSPITALNCLIA [id number] [place] [address] [place] Creatinine and Glomerular filtration rate.predicted panel (S/P/Bld) 87 mL/min/1.73m??? Normal >=60 [facility] Comment on above: Order Comment: Speci men Type: BLOOD SPECIMENOrdering Facility: [facility] Address: [place] [address] Result Comment: Marlyn mated Glomerular Filtration Rate [...] actual GFR. Performed By: #### 1 9123-9, ####[facility] HOSPITALNCLIA [id number] [place] [address] [place] Glucose [Mass/Vol] 116 mg/dL High 74-99 [facility] Comment on above: Order Comment: Speci men Type: BLOOD SPECIMENOrdering Facility: [facility] Address: [address] [place] [address] Result Comment: The [place] [employer] (ADA) provides guidance for cutoff [...] Standards of Medical Care in Diabetes 2016, [place] [employer]. Diabetes Care. 2016.39(Suppl 1). Performed By: #### 1 9123-9, 00662-7 ####[facility] HOSPITALANNIA [id number] [place] [address] [place] Potassium [Moles/Vol] 4.1 mmol/L Normal 3.7-5.1 [facility] Comment on above: Order Comment: Speci men Type: BLOOD SPECIMENOrdering Facility: [facility] Address: [address] [place] [address] Performed By: #### 1 9123-9, 38373-8 ####[facility] HOSPITALDavid [id number] [place] [address] [place] Protein [Mass/Vol] 7.3 g/dL Normal 6.3-8.0 [facility] Comment on above: Order Comment: Speci men Type: BLOOD SPECIMENOrdering Facility: [facility] Address: [address] [place] [address] Performed By: #### 1 9123-9, ####[facility] HOSPITALFARZANA [id number] [place] [address] [place] Sodium [Moles/Vol] 138 mmol/L Normal 136-144 [facility] Comment on above: Order Comment: Speci men Type: BLOOD SPECIMENOrdering Facility: [facility] Address: [address] [place] [address] Performed By: #### 1 9123-9, 59702-1 ####[facility] HOSPITALNCLIA [id number] [place] [address] [place] Urea nitrogen [Mass/Vol] 17 mg/dL Normal 7-21 [facility] Comment on above: Order Comment: Speci men Type: BLOOD SPECIMENOrdering Facility: [facility] Address: [address] [place] [address] Performed By: #### 1 9123-9, 08174-1 ####[facility] [id number] [place] [address] [place] HBV core Ab Ser Qlon 023 HBV core Ab Ql (S) Negative Normal Negative [facility] Comment on above: Order Comment: Speci men Type: BLOOD SPECIMENOrdering Facility: [facility] Address: [address] [place] [address] Result Comment: No e vidence of current or past infection with Hepatitis B virus. Should recent infection be suspected, repeat testing may be considered 3-4 weeks after this draw. Performed By: #### 5 195-3, 99769-1, 41086-3 ####[facility] LABCLIA [id number] [address] [place] HBV surface Ab Ql (S)on 05-10 HBV surface Ab Qn (S) <8.00 Normal [facility] Comment on above: Order Comment: Speci men Type: BLOOD SPECIMENOrdering Facility: [facility] Address: [address] [place] [address] Result Comment: <8 m IU/mL: No serological evidence of immunity to Hepatitis B Virus.>/= 8 to <12 mIU/mL: No serological evidence of immunity to Hepatitis B Virus.>/= 12 mIU/mL: Consistent with serological evidence of immunity to Hepatitis B Virus. Performed By: #### 5 195-3, 11399-4, 11864-2 ####[facility] LABCLIA [id number] [place] [address] [place] HBV surface Ab Ser Qlon 05-10 HBV surface Ab Ql (S) Negative Normal [facility] Comment on above: Order Comment: Speci men Type: BLOOD SPECIMENOrdering Facility: [facility] Address: [address] [place] [address] Result Comment: No s erological evidence of immunity to Hepatitis B Virus. Performed By: #### 5 195-3, 19182-2, 83622-9 ####[facility] LABCLIA [id number] [place] [address] [place] HBV surface Ag Ser Qlon 05-10 HBV surface Ag Ql (S) Negative Normal Negative [facility] Comment on above: Order Comment: Speci men Type: BLOOD SPECIMENOrdering Facility: [facility] Address: [address] [place] [address] Performed By: #### 5 195-3, 88493-6, 98865-0 ####[facility] LABCLIA [id number] [place] [address] [place] HCV Ab Ser Qlon 06-02-2023 HCV Ab Ql (S) Negative Normal Negative [facility] Comment on above: Order Comment: Speci men Type: BLOOD SPECIMENOrdering Facility: [facility] Address: [address] [place] [address] Result Comment: The result suggests no evidence of active infection with Hepatitis C virus. Should recent infection be suspected, repeat testing may be considered 4-6 weeks after this draw. Performed By: #### 1 6128-1 ####[facility] LABCLIA [id number] [place] [address] [place] MAGNESIUM BLDon 06-02-2023 Magnesium [Mass/Vol] 2.1 mg/dL 1.7 - 2 .3 mg/dL [facility] Magnesium SerPl-mCncon 06-02 Magnesium [Mass/Vol] 2.1 mg/dL Normal 1.7-2.3 [facility] Comment on above: Order Comment: Speci men Type: BLOOD SPECIMENOrdering Facility: [facility] Address: [place] [address] Performed By: #### 1 9123-9, 66856-9 ####[facility] [id number] [place] [address] [place] CNOVon 05-17-2023 CNOV Normal [facility] CNPNon 05-13-2023 CNPN Normal [facility] CNPNon 05-11-2023 CNPN Normal [facility] CNOVSPon 05-03-2023 CNOVSP Visit (SP) Office (Ninfa TAI) ----- STEFANO WASHINGTON ([id number]) 1940 F Date Time Provider Department 05/03/23 4:45 PM ELIOT CASTILLO GYN During your visit today, we recorded the following information about you: Temperature Pulse Blood pressure Weight 97.5 degrees 93/minute 144/66 72.9 kg Eliot Castillo MD 05/04/2023 4:46 AM Signed Gynecologic Oncology [facility] Postop Re: Stefano Washington [facility]#: [id number] Date of Service: 05/03/2023 Dr. Jacky Graves [...] excision: Two benign lymph nodes (0/2). I. "Peritoneum over right ureter", biopsy: Benign fibroadipose tissue. J. Lymph nodes, right para-aortic, excision: Three benign lymph nodes (0/3). K. Left paracolic gutter peritoneum, biopsy: Benign fibroadipose tissue. L. Right paracolic gutter peritoneum, biopsy: Benign fibroadipose tissue. (more content not included)... Normal [facility] 05-03-2023 [facility] Normal [facility] 04-21-2023 [facility] Telephone (GYN) ----- STEFANO WASHINGTON ([id number]) 1940 F Date Time Provider Department 04/21/23 ANNMARIE MENDOZA [facility] During your visit today, we recorded the following information about you: Annmarie Mendoza APRN.[facility] 04/21/2023 4:19 PM Signed SNF facility calling to report some redness mainly [...] currently scheduled with on 05/03. Annmarie Mendoza APRN.[facility] EP[facility]EMIOLOG[facility] Allergies As of Date: 04/21/2023 Noted Allergy [...] Status:Closed by ANNMARIE MENDOZA on 04/21/23 Normal [facility] CASE MANAGEMon 04-14-2023 CASE MANAGEM Normal [facility] CASE MANAGEM Normal [facility] CBC panel Auto (Bld)on 04-14 Erythrocyte distribution width (RBC) [Ratio] 13.2 % Normal 11.5-15.0 [facility] Comment on above: Order Comment: Speci men Type: BLOOD SPECIMENOrdering Facility: [facility] Address: [address] [place] [address] Performed By: #### 5 8410-2 ####[facility] [id number] [place] [address] [place] Hematocrit (Bld) [Volume fraction] 34.2 % Low 36.0-46.0 [facility] Comment on above: Order Comment: Speci men Type: BLOOD SPECIMENOrdering Facility: [facility] Address: [address] [place] [address] Performed By: #### 5 8410-2 ####[facility] [id number] [place] [address] [place] Hemoglobin (Bld) [Mass/Vol] 10.9 g/dL Low 11.5-15.5 [facility] Comment on above: Order Comment: Speci men Type: BLOOD SPECIMENOrdering Facility: [facility] Address: [address] [place] [address] Performed By: #### 5 8410-2 ####[facility] LABIA [id number] [address] [place] [facility] MCH (RBC) [Entitic mass] 32.1 pg Normal 26.0-34.0 [facility] Comment on above: Order Comment: Speci men Type: BLOOD SPECIMENOrdering Facility: [facility] Address: [address] [place], [place] [address] Performed By: #### 5 8410-2 ####[facility] [id number] [address] [place] MCHC (RBC) [Mass/Vol] 31.9 g/dL Normal 30.5-36.0 [facility] Comment on above: Order Comment: Speci men Type: BLOOD SPECIMENOrdering Facility: [facility] Address: [address] [place], [place] [address] Performed By: #### 5 8410-2 ####[facility] [id number] [address] [place] MCV (RBC) [Entitic vol] 100.6 fL High 80.0-100.0 [facility] Comment on above: Order Comment: Speci men Type: BLOOD SPECIMENOrdering Facility: [facility] Address: [address] [place] [address] Performed By: #### 5 8410-2 ####[facility] [id number] [address] [place] Nucleated RBC (Bld) [#/Vol] 10*3/uL Normal <0.01 [facility] Comment on above: Order Comment: Speci men Type: BLOOD SPECIMENOrdering Facility: [facility] Address: [address] [place], [place] [address] Performed By: #### 5 8410-2 ####[facility] LABIA [id number] [place] [address] [place] Platelet mean volume (Bld) [Entitic vol] 9.8 fL Normal 9.0-12.7 [facility] Comment on above: Order Comment: Speci men Type: BLOOD SPECIMENOrdering Facility: [facility] Address: [address] [place], [place] [address] Performed By: #### 5 8410-2 ####[facility] LABCLIA [id number] [place] [address] [place] Platelets (Bld) [#/Vol] 315 10*3/uL Normal 150-400 [facility] Comment on above: Order Comment: Speci men Type: BLOOD SPECIMENOrdering Facility: [facility] Address: [address] [place], [place] [address] Performed By: #### 5 8410-2 ####[facility] LABCLIA [id number] [place] [address] [place] RBC (Bld) [#/Vol] 3.40 10*6/uL Low 3.90-5.20 [facility] Comment on above: Order Comment: Speci men Type: BLOOD SPECIMENOrdering Facility: [facility] Address: [address] [place], [place] [address] Performed By: #### 5 8410-2 ####[facility] LABCLIA [id number] [place] [address] [place] WBC (Bld) [#/Vol] 5.40 10*3/uL Normal 3.70-11.00 [facility] Comment on above: Order Comment: Speci men Type: BLOOD SPECIMENOrdering Facility: [facility] Address: [address] [place], [place] [address] Performed By: #### 5 8410-2 ####[facility] LABCLIA [id number] [place] [address] [place] CNDSon 04-14-2023 CNDS Normal [facility] metabolic 2000 panelon 04-14-2023 Albumin [Mass/Vol] 3.1 g/dL Low 3.9-4.9 [facility] Comment on above: Order Comment: Speci men Type: BLOOD SPECIMENOrdering Facility: [facility] Address: [address] [place] [address] Performed By: #### 1 9123-9, 2777-1, 04869-5 ####[facility] LABCLIA [id number] [place] [address] [place] ALP [Catalytic activity/Vol] 63 U/L Normal 34-123 [facility] Comment on above: Order Comment: Speci men Type: BLOOD SPECIMENOrdering Facility: [facility] Address: [address] [place] [address] Performed By: #### 1 9123-9, 2777-1, 68788-6 ####[facility] LABCLIA [id number] [place] [address] [place] ALT [Catalytic activity/Vol] 22 U/L Normal 7-38 [facility] Comment on above: Order Comment: Speci men Type: BLOOD SPECIMENOrdering Facility: [facility] Address: [address] [place] [address] Performed By: #### 1 9123-9, 277-, 04680-5 ####[facility] LABCLIA [id number] [place] [address] [place] Anion gap [Moles/Vol] 12 mmol/L Normal 9-18 [facility] Comment on above: Order Comment: Speci men Type: BLOOD SPECIMENOrdering Facility: [facility] Address: [address] [place] [address] Performed By: #### 1 9123-9, 2777-1, 62864-3 ####[facility] LABCLIA [id number] [place] [address] [place] AST [Catalytic activity/Vol] 31 U/L Normal 13-35 [facility] Comment on above: Order Comment: Speci men Type: BLOOD SPECIMENOrdering Facility: [facility] Address: [address] [place], [place] [address] Performed By: #### 1 9123-9, 2776-08, ####[facility] LABCLIA [id number] [place] [address] [place] Bilirubin [Mass/Vol] 0.4 mg/dL Normal 0.2-1.3 [facility] Comment on above: Order Comment: Speci men Type: BLOOD SPECIMENOrdering Facility: [facility] Address: [address] [place] [address] Performed By: #### 1 9123-9, 2776-08, ####[facility] LABCLIA [id number] [place] [address] [place] Calcium [Mass/Vol] 8.6 mg/dL Normal 8.5-10.2 [facility] Comment on above: Order Comment: Speci men Type: BLOOD SPECIMENOrdering Facility: [facility] Address: [address] [place] [address] Performed By: #### 1 9123-9, 2776-08, ####[facility] LABCLIA [id number] [place] [address] [place] Chloride [Moles/Vol] 103 mmol/L Normal 97-105 [facility] Comment on above: Order Comment: Speci men Type: BLOOD SPECIMENOrdering Facility: [facility] Address: [address] [place], [place] [address] Performed By: #### 1 9123-9, 2776-08, ####[facility] LABCLIA [id number] [address] [address] [place] CO2 [Moles/Vol] 22 mmol/L Normal 22-30 [facility] Comment on above: Order Comment: Speci men Type: BLOOD SPECIMENOrdering Facility: [facility] Address: [address] [id number] Performed By: #### 1 9123-9, 2776-08, ####[facility] LABCLIA [id number] [place] [address] [place] Creatinine [Mass/Vol] 0.55 mg/dL Low 0.58-0.96 [facility] Comment on above: Order Comment: Speci men Type: BLOOD SPECIMENOrdering Facility: [facility] Address: [address] Performed By: #### 1 9123-9, 2776-08, ####[facility] LABIA [id number] [place] [address] [place] Creatinine and Glomerular filtration rate.predicted panel (S/P/Bld) 91 mL/min/1.73m??? Normal >=60 [facility] Comment on above: Order Comment: Speci men Type: BLOOD SPECIMENOrdering Facility: [facility] Address: [address] Result Comment: Marlyn mated Glomerular Filtration [...] actual GFR. Performed By: #### 1 9123-9, 2776-08, ####[facility] LABCLIA [id number] [place] [address] [place] Glucose [Mass/Vol] 106 mg/dL High 74-99 [facility] Comment on above: Order Comment: Speci men Type: BLOOD SPECIMENOrdering Facility: [facility] Address: [address] [place] [address] Result Comment: The [place] [employer] (ADA) provides guidance for cutoff [...] Standards of Medical Care in Diabetes 2016, [place] [employer]. Diabetes Care. 2016.39(Suppl 1). Performed By: #### 1 9123-9, 2777, ####[facility] LABCLIA [id number] [place] [address] [place] Potassium [Moles/Vol] 3.7 mmol/L Normal 3.7-5.1 [facility] Comment on above: Order Comment: Speci men Type: BLOOD SPECIMENOrdering Facility: [facility] Address: [address] [phone] Performed By: #### 1 9123-9, 2776-08, ####[facility] LABIA [id number] [place] [address] [place] Protein [Mass/Vol] 5.9 g/dL Low 6.3-8.0 [facility] Comment on above: Order Comment: Speci men Type: BLOOD SPECIMENOrdering Facility: [facility] Address: [address] [phone] Performed By: #### 1 9123-9, 27702-06, ####[facility] LABCLIA [id number] [place] [address] [place] Sodium [Moles/Vol] 137 mmol/L Normal 136-144 [facility] Comment on above: Order Comment: Speci men Type: BLOOD SPECIMENOrdering Facility: [facility] Address: [address] Performed By: #### 1 9123-9, 2777-1, 25649-1 ####[facility] LABCLIA [id number] [place] [address] [place] Urea nitrogen [Mass/Vol] 12 mg/dL Normal 7-21 [facility] Comment on above: Order Comment: Speci men Type: BLOOD SPECIMENOrdering Facility: [facility] Address: [address] Performed By: #### 1 9123-9, 2777-, 37534-4 ####[facility] LABIA [id number] [place] [address] [place] ECG COMPLETEon 04-14-2023 ECG COMPLETE Normal [facility] HIGH SENSITIVITY TROPONIN To n 04-14-2023 Troponin T.cardiac High sensitivity method [Mass/Vol] 13 ng/L High <12 [facility] Comment on above: Order Comment: Speci men Type: BLOOD SPECIMENOrdering Facility: [facility] Address: [address] [place] [address] Result Comment: When assessing risk for acute [...] day MACE. Performed By: #### H STNT ####[facility] LABIA [id number] [place] [address] [place] Magnesium SerPl-mCncon 04-14 Magnesium [Mass/Vol] 1.9 mg/dL Normal 1.7-2.3 [facility] Comment on above: Order Comment: Speci men Type: BLOOD SPECIMENOrdering Facility: [facility] Address: [place] [address] Performed By: #### 1 9123-9, 2777-1, 21795-4 ####[facility] LABCLIA [id number] [place] [address] [place] NURSING PROGon 04-14-2023 NURSING PROG Normal [facility] NUTRITIONon 04-14-2023 NUTRITION Normal [facility] Phosphate SerPl-mCncon 04-14 Phosphate [Mass/Vol] 3.9 mg/dL Normal 2.7-4.8 [facility] Comment on above: Order Comment: Speci men Type: BLOOD SPECIMENOrdering Facility: [facility] Address: [address] [place] [address] Performed By: #### 1 9123-9, 2777-1, 73566-4 ####[facility] LABCLIA [id number] [address] [facility] CASE MANAGEMon 04-13-2023 CASE MANAGEM Normal [facility] CASE MANAGEM Normal [facility] CBC panel Auto (Bld)on 04-13 Erythrocyte distribution width (RBC) [Ratio] 13.2 % Normal 11.5-15.0 [facility] Comment on above: Order Comment: Speci men Type: BLOOD SPECIMENOrdering Facility: [facility] Address: [address] [place] [address] Performed By: #### 5 8410-2 ####[facility] LABCLIA [id number] [address] [place] Hematocrit (Bld) [Volume fraction] 35.6 % Low 36.0-46.0 [facility] Comment on above: Order Comment: Speci men Type: BLOOD SPECIMENOrdering Facility: [facility] Address: [address] [address] Performed By: #### 5 8410-2 ####[facility] LABCLIA [id number] [place] [address] [place] Hemoglobin (Bld) [Mass/Vol] 11.2 g/dL Low 11.5-15.5 [facility] Comment on above: Order Comment: Speci men Type: BLOOD SPECIMENOrdering Facility: [facility] Address: [address] [place], [place] [address] Performed By: #### 5 8410-2 ####[facility] LABCLIA [id number] [address] MCH (RBC) [Entitic mass] 32.0 pg Normal 26.0-34.0 [facility] Comment on above: Order Comment: Speci men Type: BLOOD SPECIMENOrdering Facility: [facility] Address: [address] [place], [place] [address] Performed By: #### 5 8410-2 ####[facility] LABIA [id number] [address] [place] [facility] MCHC (RBC) [Mass/Vol] 31.5 g/dL Normal 30.5-36.0 [facility] Comment on above: Order Comment: Speci men Type: BLOOD SPECIMENOrdering Facility: [facility] Address: [address] [place], [place] [address] Performed By: #### 5 8410-2 ####[facility] LABIA [id number] [address] [place] MCV (RBC) [Entitic vol] 101.7 fL High 80.0-100.0 [facility] Comment on above: Order Comment: Speci men Type: BLOOD SPECIMENOrdering Facility: [facility] Address: [address] [place], [place] [address] Performed By: #### 5 8410-2 ####[facility] LABIA [id number] [address] [place] Nucleated RBC (Bld) [#/Vol] 10*3/uL Normal <0.01 [facility] Comment on above: Order Comment: Speci men Type: BLOOD SPECIMENOrdering Facility: [facility] Address: [address] [place], [place] [address] Performed By: #### 5 8410-2 ####[facility] LABIA [id number] [place] [address] [place] Platelet mean volume (Bld) [Entitic vol] 10.4 fL Normal 9.0-12.7 [facility] Comment on above: Order Comment: Speci men Type: BLOOD SPECIMENOrdering Facility: [facility] Address: [address] [place], [place] [address] Performed By: #### 5 8410-2 ####[facility] LABIA [id number] [place] [address] [place] Platelets (Bld) [#/Vol] 327 10*3/uL Normal 150-400 [facility] Comment on above: Order Comment: Speci men Type: BLOOD SPECIMENOrdering Facility: [facility] Address: [address] [place], [place] [address] Performed By: #### 5 8410-2 ####[facility] LABIA [id number] [place] [address] [place] RBC (Bld) [#/Vol] 3.50 10*6/uL Low 3.90-5.20 [facility] Comment on above: Order Comment: Speci men Type: BLOOD SPECIMENOrdering Facility: [facility] Address: [address] [place], [place] [address] Performed By: #### 5 8410-2 ####[facility] LABIA [id number] [place] [address] [place] WBC (Bld) [#/Vol] 6.06 10*3/uL Normal 3.70-11.00 [facility] Comment on above: Order Comment: Speci men Type: BLOOD SPECIMENOrdering Facility: [facility] Address: [address] [place], [place] [address] Performed By: #### 5 8410-2 ####[facility] LABCLIA [id number] [place] [address] [place] Comprehensive metabolic 2000 panelon 04-13-2023 Albumin [Mass/Vol] 3.5 g/dL Low 3.9-4.9 [facility] Comment on above: Order Comment: Speci men Type: BLOOD SPECIMENOrdering Facility: [facility] Address: [address] [place] [address] Performed By: #### 2 4323-8, , 2776- ####[facility] LABCLIA [id number] [place] [address] [place] ALP [Catalytic activity/Vol] 63 U/L Normal 34-123 [facility] Comment on above: Order Comment: Speci men Type: BLOOD SPECIMENOrdering Facility: [facility] Address: [address] [place] [address] Performed By: #### 2 432-8, , 2776-08 ####[facility] LABIA [id number] [address] [place] ALT [Catalytic activity/Vol] 14 U/L Normal 7-38 [facility] Comment on above: Order Comment: Speci men Type: BLOOD SPECIMENOrdering Facility: [facility] Address: [address] [place], [place] [address] Performed By: #### 2 4323-8, , 2776-08 ####[facility] LABCLIA [id number] [place] [address] [place] Anion gap [Moles/Vol] 11 mmol/L Normal 9-18 [facility] Comment on above: Order Comment: Speci men Type: BLOOD SPECIMENOrdering Facility: [facility] Address: [address] [place] [address] Performed By: #### 2 4323-8, , 2776-1 ####[facility] LABCLIA [id number] [place] [address] [place] AST [Catalytic activity/Vol] 23 U/L Normal 13-35 [facility] Comment on above: Order Comment: Speci men Type: BLOOD SPECIMENOrdering Facility: [facility] Address: [address] [place] [address] Performed By: #### 2 4323-8, , 2776-08 ####[facility] LABCLIA [id number] [place] [address] [place] Bilirubin [Mass/Vol] 0.6 mg/dL Normal 0.2-1.3 [facility] Comment on above: Order Comment: Speci men Type: BLOOD SPECIMENOrdering Facility: [facility] Address: [address] [place] [address] Performed By: #### 2 4323-8, , 2776-08 ####[facility] LABCLIA [id number] [place] [address] [place] Calcium [Mass/Vol] 8.9 mg/dL Normal 8.5-10.2 [facility] Comment on above: Order Comment: Speci men Type: BLOOD SPECIMENOrdering Facility: [facility] Address: [address] [place], [place] [address] Performed By: #### 2 4323-8, , 2776-08 ####[facility] LABCLIA [id number] [place] [address] [place] Chloride [Moles/Vol] 103 mmol/L Normal 97-105 [facility] Comment on above: Order Comment: Speci men Type: BLOOD SPECIMENOrdering Facility: [facility] Address: [address] [place], [place] [address] Performed By: #### 2 4323-8, , 2776-08 ####[facility] LABCLIA [id number] [place] [address] [place] CO2 [Moles/Vol] 26 mmol/L Normal 22-30 [facility] Comment on above: Order Comment: Speci men Type: BLOOD SPECIMENOrdering Facility: [facility] Address: [address] [place] [address] Performed By: #### 2 4323-8, , 2776-08 ####[facility] LABCLIA [id number] [place] [address] [place] Creatinine [Mass/Vol] 0.64 mg/dL Normal 0.58-0.96 [facility] Comment on above: Order Comment: Speci men Type: BLOOD SPECIMENOrdering Facility: [facility] Address: [address] [place] [address] Performed By: #### 2 4323-8, , 2776-08 ####[facility] LABIA [id number] [place] [address] [place] Creatinine and Glomerular filtration rate.predicted panel (S/P/Bld) 87 mL/min/1.73m??? Normal >=60 [facility] Comment on above: Order Comment: Speci lori Type: BLOOD SPECIMENOrdering Facility: [facility] Address: [address] [place] [address] Result Comment: Marlyn mated Glomerular Filtration Rate [...] , 2776-08 ####[facility] LABCLIA [id number] [place] [address] [place] Glucose [Mass/Vol] 93 mg/dL Normal 74-99 [facility] Comment on above: Order Comment: Speci men Type: BLOOD SPECIMENOrdering Facility: [facility] Address: [place] [address] Result Comment: The [place] [employer] (ADA) provides guidance for cutoff [...] Standards of Medical Care in Diabetes 2016, [place] [employer]. Diabetes Care. 2016.39(Suppl 1). Performed By: #### 2 4323-8, , 2776-08 ####[facility] LABCLIA [id number] [place] [address] [place] Potassium [Moles/Vol] 4.1 mmol/L Normal 3.7-5.1 [facility] Comment on above: Order Comment: Pratibhai men Type: BLOOD SPECIMENOrdering Facility: [facility] Address: [address] [place] [address] Performed By: #### 2 4323-8, , 2776-08 ####[facility] LABCLIA [id number] [place] [address] [place] Protein [Mass/Vol] 6.4 g/dL Normal 6.3-8.0 [facility] Comment on above: Order Comment: Pratibhai men Type: BLOOD SPECIMENOrdering Facility: [facility] Address: [address] [place] [address] Performed By: #### 2 4323-8, , 2776- ####[facility] LABCLIA [id number] [place] [address] [place] Sodium [Moles/Vol] 140 mmol/L Normal 136-144 [facility] Comment on above: Order Comment: Speci men Type: BLOOD SPECIMENOrdering Facility: [facility] Address: [address] [place] [address] Performed By: #### 2 4323-8, 35820-8, 2776-08 ####[facility] LABCLIA [id number] [place] [address] [place] Urea nitrogen [Mass/Vol] 10 mg/dL Normal 7-21 [facility] Comment on above: Order Comment: Speci men Type: BLOOD SPECIMENOrdering Facility: [facility] Address: [address] [place] [address] Performed By: #### 2 4323-8, , 2776-08 ####[facility] LABCLIA [id number] [place] [address] [place] Magnesium SerPl-mCncon 04-13 Magnesium [Mass/Vol] 2.0 mg/dL Normal 1.7-2.3 [facility] Comment on above: Order Comment: Speci men Type: BLOOD SPECIMENOrdering Facility: [facility] Address: [address] [place] [address] Performed By: #### 2 4323-8, , 2776-08 ####[facility] LABCLIA [id number] [place] [address] [place] Phosphate SerPl-mCncon 04-13 Phosphate [Mass/Vol] 3.5 mg/dL Normal 2.7-4.8 [facility] Comment on above: Order Comment: Speci men Type: BLOOD SPECIMENOrdering Facility: [facility] Address: [address] [place], [place] [address] Performed By: #### 2 4323-8, , 2776-08 ####[facility] LABCLIA [id number] [place] [address] [place] THERAPY NTon 04-13-2023 THERAPY NT Normal [facility] CBC panel Auto (Bld)on 04-12 Erythrocyte distribution width (RBC) [Ratio] 13.2 % Normal 11.5-15.0 [facility] Comment on above: Order Comment: Speci men Type: BLOOD SPECIMENOrdering Facility: [facility] Address: [address] [place] [address] Performed By: #### 5 8410-2 ####[facility] [id number] [address] [place] Hematocrit (Bld) [Volume fraction] 33.4 % Low 36.0-46.0 [facility] Comment on above: Order Comment: Speci men Type: BLOOD SPECIMENOrdering Facility: [facility] Address: [address] [place] [address] Performed By: #### 5 8410-2 ####[facility] LABIA [id number] [address] [place] Hemoglobin (Bld) [Mass/Vol] 10.8 g/dL Low 11.5-15.5 [facility] Comment on above: Order Comment: Speci men Type: BLOOD SPECIMENOrdering Facility: [facility] Address: [address] [place], [place] [address] Performed By: #### 5 8410-2 ####[facility] LABIA [id number] [place] [address] [place] MCH (RBC) [Entitic mass] 32.8 pg Normal 26.0-34.0 [facility] Comment on above: Order Comment: Speci men Type: BLOOD SPECIMENOrdering Facility: [facility] Address: [address] [place] [address] Performed By: #### 5 8410-2 ####[facility] LABIA [id number] [address] [place] MCHC (RBC) [Mass/Vol] 32.3 g/dL Normal 30.5-36.0 [facility] Comment on above: Order Comment: Speci men Type: BLOOD SPECIMENOrdering Facility: [facility] Address: [address] [place] [address] Performed By: #### 5 8410-2 ####[facility] LABIA [id number] [address] [place] MCV (RBC) [Entitic vol] 101.5 fL High 80.0-100.0 [facility] Comment on above: Order Comment: Speci men Type: BLOOD SPECIMENOrdering Facility: [facility] Address: [address] [place], [place] [address] Performed By: #### 5 8410-2 ####[facility] LABIA [id number] [address] [place] Nucleated RBC (Bld) [#/Vol] 10*3/uL Normal <0.01 [facility] Comment on above: Order Comment: Speci men Type: BLOOD SPECIMENOrdering Facility: [facility] Address: [address] [place], [place] [address] Performed By: #### 5 8410-2 ####[facility] LABIA [id number] [place] [address] [place] Platelet mean volume (Bld) [Entitic vol] 10.5 fL Normal 9.0-12.7 [facility] Comment on above: Order Comment: Speci men Type: BLOOD SPECIMENOrdering Facility: [facility] Address: [address] [place], [place] [address] Performed By: #### 5 8410-2 ####[facility] LABCLIA [id number] [place] [address] [place] Platelets (Bld) [#/Vol] 305 10*3/uL Normal 150-400 [facility] Comment on above: Order Comment: Speci men Type: BLOOD SPECIMENOrdering Facility: [facility] Address: [address] [place] [address] Performed By: #### 5 8410-2 ####[facility] LABCLIA [id number] [place] [address] [place] RBC (Bld) [#/Vol] 3.29 10*6/uL Low 3.90-5.20 [facility] Comment on above: Order Comment: Speci men Type: BLOOD SPECIMENOrdering Facility: [facility] Address: [address] [place] [address] Performed By: #### 5 8410-2 ####[facility] LABCLIA [id number] [place] [address] [place] WBC (Bld) [#/Vol] 6.23 10*3/uL Normal 3.70-11.00 [facility] Comment on above: Order Comment: Speci men Type: BLOOD SPECIMENOrdering Facility: [facility] Address: [address] [place] [address] Performed By: #### 5 8410-2 ####[facility] LABCLIA [id number] [place] [address] [place] Comprehensive metabolic 2000 panelon 04-12-2023 Albumin [Mass/Vol] 3.3 g/dL Low 3.9-4.9 [facility] Comment on above: Order Comment: Speci men Type: BLOOD SPECIMENOrdering Facility: [facility] Address: [address] [place] [address] Performed By: #### 1 9123-9, 2777-1, 52438-8 ####[facility] LABCLIA [id number] [place] [address] [place] ALP [Catalytic activity/Vol] 58 U/L Normal 34-123 [facility] Comment on above: Order Comment: Speci men Type: BLOOD SPECIMENOrdering Facility: [facility] Address: [address] [place] [address] Performed By: #### 1 9123-9, 2777-1, 71269-2 ####[facility] LABCLIA [id number] [place] [address] [place] ALT [Catalytic activity/Vol] 9 U/L Normal 7-38 [facility] Comment on above: Order Comment: Speci men Type: BLOOD SPECIMENOrdering Facility: [facility] Address: [address] [place] [address] Performed By: #### 1 9123-9, 2777-1, 60283-5 ####[facility] LABCLIA [id number] [place] [address] [place] Anion gap [Moles/Vol] 12 mmol/L Normal 9-18 [facility] Comment on above: Order Comment: Speci men Type: BLOOD SPECIMENOrdering Facility: [facility] Address: [address] [place] [address] Performed By: #### 1 9123-9, 27702-06, 02639-6 ####[facility] LABIA [id number] [place] [address] [place] AST [Catalytic activity/Vol] 17 U/L Normal 13-35 [facility] Comment on above: Order Comment: Speci men Type: BLOOD SPECIMENOrdering Facility: [facility] Address: [address] [place], [place] [address] Performed By: #### 1 9123-9, 2777, 60888-8 ####[facility] LABCLIA [id number] [place] [address] [place] Bilirubin [Mass/Vol] 0.6 mg/dL Normal 0.2-1.3 [facility] Comment on above: Order Comment: Speci men Type: BLOOD SPECIMENOrdering Facility: [facility] Address: [address] [place] [address] Performed By: #### 1 9123-9, 2777, 85382-5 ####[facility] LABCLIA [id number] [place] [address] [place] Calcium [Mass/Vol] 8.7 mg/dL Normal 8.5-10.2 [facility] Comment on above: Order Comment: Speci men Type: BLOOD SPECIMENOrdering Facility: [facility] Address: [address] [place] [address] Performed By: #### 1 9123-9, 27702-06, 12817-4 ####[facility] LABCLIA [id number] [place] [address] [place] Chloride [Moles/Vol] 101 mmol/L Normal 97-105 [facility] Comment on above: Order Comment: Speci men Type: BLOOD SPECIMENOrdering Facility: [facility] Address: [address] [place] [address] Performed By: #### 1 9123-9, 27702-06, 47048-9 ####[facility] LABCLIA [id number] [place] [address] [place] CO2 [Moles/Vol] 26 mmol/L Normal 22-30 [facility] Comment on above: Order Comment: Speci men Type: BLOOD SPECIMENOrdering Facility: [facility] Address: [address] [place] [address] Performed By: #### 1 9123-9, 27702-06, 45247-0 ####[facility] LABCLIA [id number] [place] [address] [place] Creatinine [Mass/Vol] 0.47 mg/dL Low 0.58-0.96 [facility] Comment on above: Order Comment: Speci men Type: BLOOD SPECIMENOrdering Facility: [facility] Address: [address] [place] [address] Performed By: #### 1 9123-9, 27702-06, 32551-6 ####[facility] LABIA [id number] [place] [address] [facility] [place] Creatinine and Glomerular filtration rate.predicted panel (S/P/Bld) 94 mL/min/1.73m??? Normal >=60 [facility] Comment on above: Order Comment: Zay sandoval Type: BLOOD SPECIMENOrdering Facility: [facility] Address: [address] [place] [address] Result Comment: Marlyn mated Glomerular Filtration Rate [...] GFR. Performed By: #### 1 9123-9, 2777-, 86960-5 ####[facility] LABIA [id number] [place] [address] [place] Glucose [Mass/Vol] 89 mg/dL Normal 74-99 [facility] Comment on above: Order Comment: Zay sandoval Type: BLOOD SPECIMENOrdering Facility: [facility] Address: [address] [place] [address] Result Comment: The [place] [employer] (ADA) provides guidance for cutoff [...] Standards of Medical Care in Diabetes 2016, [place] [employer]. Diabetes Care. 2016.39(Suppl 1). Performed By: #### 1 9123-9, 2777-, 68170-0 ####[facility] LABCLIA [id number] [place] [address] [place] Potassium [Moles/Vol] 3.4 mmol/L Low 3.7-5.1 [facility] Comment on above: Order Comment: Speci men Type: BLOOD SPECIMENOrdering Facility: [facility] Address: [address] Performed By: #### 1 9123-9, 2776-08, ####[facility] LABCLIA [id number] [place] [address] [place] Protein [Mass/Vol] 6.1 g/dL Low 6.3-8.0 [facility] Comment on above: Order Comment: Speci men Type: BLOOD SPECIMENOrdering Facility: [facility] Address: [address] Performed By: #### 1 9123-9, 2776-08, ####[facility] LABCLIA [id number] [place] [address] [place] Sodium [Moles/Vol] 139 mmol/L Normal 136-144 [facility] Comment on above: Order Comment: Speci men Type: BLOOD SPECIMENOrdering Facility: [facility] Address: [address] [place] [address] Performed By: #### 1 9123-9, 2776-08, ####[facility] LABCLIA [id number] [place] [address] [place] Urea nitrogen [Mass/Vol] 7 mg/dL Normal 7-21 [facility] Comment on above: Order Comment: Speci men Type: BLOOD SPECIMENOrdering Facility: [facility] Address: [address] [place] [address] Performed By: #### 1 9123-9, 27702-06, 53801-8 ####[facility] LABCLIA [id number] [place] [address] [place] Magnesium SerPl-ncon 04-12 Magnesium [Mass/Vol] 2.0 mg/dL Normal 1.7-2.3 [facility] Comment on above: Order Comment: Speci men Type: BLOOD SPECIMENOrdering Facility: [facility] Address: [address] [place] [address] Performed By: #### 1 9123-9, 2777-1, 10341-7 ####[facility] LABCLIA [id number] [place] [address] [place] Phosphate SerPl-mCncon 04-12 Phosphate [Mass/Vol] 3.2 mg/dL Normal 2.7-4.8 [facility] Comment on above: Order Comment: Speci men Type: BLOOD SPECIMENOrdering Facility: [facility] Address: [address] [place] [address] Performed By: #### 1 9123-9, 2777-1, 80145-2 ####[facility] LABIA [id number] [place] [address] [place] THERAPY NTon 04-12-2023 THERAPY NT Normal [facility] CASE MANAGEMon 04-11-2023 CASE MANAGEM Normal [facility] CBC panel Auto (Bld)on 04-11 Erythrocyte distribution width (RBC) [Ratio] 13.2 % Normal 11.5-15.0 [facility] Comment on above: Order Comment: Speci men Type: BLOOD SPECIMENOrdering Facility: [facility] Address: [address] [place] [address] Performed By: #### 5 8410-2 ####[facility] LABCLIA [id number] [place] [address] [place] Hematocrit (Bld) [Volume fraction] 34.2 % Low 36.0-46.0 [facility] Comment on above: Order Comment: Speci men Type: BLOOD SPECIMENOrdering Facility: [facility] Address: [address] [place] [address] Performed By: #### 5 8410-2 ####[facility] [id number] [place] [address] [place] Hemoglobin (Bld) [Mass/Vol] 10.7 g/dL Low 11.5-15.5 [facility] Comment on above: Order Comment: Speci men Type: BLOOD SPECIMENOrdering Facility: [facility] Address: [address] [place] [address] Performed By: #### 5 8410-2 ####[facility] [id number] [place] [address] [place] MCH (RBC) [Entitic mass] 32.1 pg Normal 26.0-34.0 [facility] Comment on above: Order Comment: Speci men Type: BLOOD SPECIMENOrdering Facility: [facility] Address: [address] Performed By: #### 5 8410-2 ####[facility] [id number] [place] [address] [place] MCHC (RBC) [Mass/Vol] 31.3 g/dL Normal 30.5-36.0 [facility] Comment on above: Order Comment: Speci men Type: BLOOD SPECIMENOrdering Facility: [facility] Address: [address] [place], [place] [address] Performed By: #### 5 8410-2 ####[facility] [id number] [place] [address] [place] MCV (RBC) [Entitic vol] 102.7 fL High 80.0-100.0 [facility] Comment on above: Order Comment: Speci men Type: BLOOD SPECIMENOrdering Facility: [facility] Address: [address] [place] [address] Performed By: #### 5 8410-2 ####[facility] LABCLIA [id number] [place] [address] [place] Nucleated RBC (Bld) [#/Vol] 10*3/uL Normal <0.01 [facility] Comment on above: Order Comment: Speci men Type: BLOOD SPECIMENOrdering Facility: [facility] Address: [address] [place] [address] Performed By: #### 5 8410-2 ####[facility] LABIA [id number] [place] [address] [place] Platelet mean volume (Bld) [Entitic vol] 10.5 fL Normal 9.0-12.7 [facility] Comment on above: Order Comment: Speci men Type: BLOOD SPECIMENOrdering Facility: [facility] Address: [address] [place] [address] Performed By: #### 5 8410-2 ####[facility] LABIA [id number] [place] [address] [place] Platelets (Bld) [#/Vol] 267 10*3/uL Normal 150-400 [facility] Comment on above: Order Comment: Speci men Type: BLOOD SPECIMENOrdering Facility: [facility] Address: [address] [place] [address] Performed By: #### 5 8410-2 ####[facility] LABIA [id number] [place] [address] [place] RBC (Bld) [#/Vol] 3.33 10*6/uL Low 3.90-5.20 [facility] Comment on above: Order Comment: Speci men Type: BLOOD SPECIMENOrdering Facility: [facility] Address: [address] [place] [address] Performed By: #### 5 8410-2 ####[facility] LABIA [id number] [address] [address] [place] WBC (Bld) [#/Vol] 5.53 10*3/uL Normal 3.70-11.00 [facility] Comment on above: Order Comment: Speci men Type: BLOOD SPECIMENOrdering Facility: [facility] Address: [address] [place] [address] Performed By: #### 5 8410-2 ####[facility] LABCLIA [id number] [place] [address] [facility] Comprehensive metabolic 2000 panelon 04-11-2023 Albumin [Mass/Vol] 3.3 g/dL Low 3.9-4.9 [facility] Comment on above: Order Comment: Speci men Type: BLOOD SPECIMENOrdering Facility: [facility] Address: [address] [place] [address] Performed By: #### 1 9123-9, 30470-7, 2777-1 ####[facility] LABCLIA [id number] [address] [place] ALP [Catalytic activity/Vol] 59 U/L Normal 34-123 [facility] Comment on above: Order Comment: Speci men Type: BLOOD SPECIMENOrdering Facility: [facility] Address: [address] [place] [address] Performed By: #### 1 9123-9, 99235-3, 2777-1 ####[facility] LABCLIA [id number] [address] [place] [facility] ALT [Catalytic activity/Vol] 9 U/L Normal 7-38 [facility] Comment on above: Order Comment: Speci men Type: BLOOD SPECIMENOrdering Facility: [facility] Address: [address] [place] [address] Performed By: #### 1 9123-9, 65929-8, 2777-1 ####[facility] LABCLIA [id number] [place] [address] [place] Anion gap [Moles/Vol] 12 mmol/L Normal 9-18 [facility] Comment on above: Order Comment: Speci men Type: BLOOD SPECIMENOrdering Facility: [facility] Address: [address] [place], [place] [address] Performed By: #### 1 9123-9, 87508-1, 2776- ####[facility] LABCLIA [id number] [place] [address] [place] AST [Catalytic activity/Vol] 15 U/L Normal 13-35 [facility] Comment on above: Order Comment: Speci men Type: BLOOD SPECIMENOrdering Facility: [facility] Address: [address] [place] [address] Performed By: #### 1 9123-9, 32398-1, 2776-08 ####[facility] LABCLIA [id number] [place] [address] [place] Bilirubin [Mass/Vol] 0.6 mg/dL Normal 0.2-1.3 [facility] Comment on above: Order Comment: Speci men Type: BLOOD SPECIMENOrdering Facility: [facility] Address: [address] [place] [address] Performed By: #### 1 9123-9, 96381-6, 2776-08 ####[facility] LABCLIA [id number] [place] [address] [place] Calcium [Mass/Vol] 8.8 mg/dL Normal 8.5-10.2 [facility] Comment on above: Order Comment: Speci men Type: BLOOD SPECIMENOrdering Facility: [facility] Address: [address] [place], [place] [address] Performed By: #### 1 9123-9, 28711-5, 2776- ####[facility] LABCLIA [id number] [place] [address] [place] Chloride [Moles/Vol] 103 mmol/L Normal 97-105 [facility] Comment on above: Order Comment: Speci men Type: BLOOD SPECIMENOrdering Facility: [facility] Address: [address] [address] Performed By: #### 1 9123-9, 71794-2, 27702-06 ####[facility] LABCLIA [id number] [place] [address] [place] CO2 [Moles/Vol] 25 mmol/L Normal 22-30 [facility] Comment on above: Order Comment: Speci men Type: BLOOD SPECIMENOrdering Facility: [facility] Address: [address] [address] Performed By: #### 1 9123-9, 71044-9, 27702-06 ####[facility] LABCLIA [id number] [place] [address] [place] Creatinine [Mass/Vol] 0.46 mg/dL Low 0.58-0.96 [facility] Comment on above: Order Comment: Speci men Type: BLOOD SPECIMENOrdering Facility: [facility] Address: [address] [place] [address] Performed By: #### 1 9123-9, 46668-8, 27702-06 ####[facility] LABCLIA [id number] [place] [address] [place] Creatinine and Glomerular filtration rate.predicted panel (S/P/Bld) 94 mL/min/1.73m??? Normal >=60 [facility] Comment on above: Order Comment: Speci men Type: BLOOD SPECIMENOrdering Facility: [facility] Address: [address] [place], [place] [address] Result Comment: Marlyn mated Glomerular Filtration Rate [...] actual GFR. Performed By: #### 1 9123-9, 28745-2, 2776-08 ####[facility] LABCLIA [id number] [place] [address] [place] Glucose [Mass/Vol] 102 mg/dL High 74-99 [facility] Comment on above: Order Comment: Speci men Type: BLOOD SPECIMENOrdering Facility: [facility] Address: [address] [id number] Result Comment: The [place] [employer] (ADA) provides guidance for cutoff [...] Standards of Medical Care in Diabetes 2016, [place] [employer]. Diabetes Care. 2016.39(Suppl 1). Performed By: #### 1 9123-9, , 2776-08 ####[facility] LABCLIA [id number] [place] [address] [place] Potassium [Moles/Vol] 3.7 mmol/L Normal 3.7-5.1 [facility] Comment on above: Order Comment: Speci men Type: BLOOD SPECIMENOrdering Facility: [facility] Address: [address] [place] [address] Performed By: #### 1 9123-9, 71541-9, 2776-08 ####[facility] LABIA [id number] [place] [address] [place] Protein [Mass/Vol] 5.9 g/dL Low 6.3-8.0 [facility] Comment on above: Order Comment: Speci men Type: BLOOD SPECIMENOrdering Facility: [facility] Address: [address] [place] [address] Performed By: #### 1 9123-9, 14500-0, 2777-1 ####[facility] LABCLIA [id number] [place] [address] [place] Sodium [Moles/Vol] 140 mmol/L Normal 136-144 [facility] Comment on above: Order Comment: Speci men Type: BLOOD SPECIMENOrdering Facility: [facility] Address: [address] [place], [place] [address] Performed By: #### 1 9123-9, 89407-1, 2777- ####[facility] LABCLIA [id number] [place] [address] [place] Urea nitrogen [Mass/Vol] 5 mg/dL Low 7-21 [facility] Comment on above: Order Comment: Speci men Type: BLOOD SPECIMENOrdering Facility: [facility] Address: [address] [place], [place] [address] Performed By: #### 1 9123-9, 50191-9, 2777- ####[facility] LABCLIA [id number] [place] [address] [place] Magnesium SerPl-mCncon 04-11 Magnesium [Mass/Vol] 1.9 mg/dL Normal 1.7-2.3 [facility] Comment on above: Order Comment: Speci men Type: BLOOD SPECIMENOrdering Facility: [facility] Address: [address] [place] [address] Performed By: #### 1 9123-9, 24534-7, 2777-1 ####[facility] LABCLIA [id number] [place] [address] [place] Phosphate SerPl-mCncon 04-11 Phosphate [Mass/Vol] 3.3 mg/dL Normal 2.7-4.8 [facility] Comment on above: Order Comment: Speci men Type: BLOOD SPECIMENOrdering Facility: [facility] Address: [address] [place] [address] Performed By: #### 1 9123-9, 24833-1, 2777-1 ####[facility] LABCLIA [id number] [place] [address] [place] CBC panel Auto (Bld)on 04-10 Erythrocyte distribution width (RBC) [Ratio] 13.6 % Normal 11.5-15.0 [facility] Comment on above: Order Comment: Speci men Type: BLOOD SPECIMENOrdering Facility: [facility] Address: [address] [place] [address] Performed By: #### 5 8410-2 ####[facility] LABIA [id number] [place] [address] [place] Hematocrit (Bld) [Volume fraction] 31.1 % Low 36.0-46.0 [facility] Comment on above: Order Comment: Speci men Type: BLOOD SPECIMENOrdering Facility: [facility] Address: [address] [place] [address] Performed By: #### 5 8410-2 ####[facility] LABIA [id number] [address] [place] Hemoglobin (Bld) [Mass/Vol] 9.8 g/dL Low 11.5-15.5 [facility] Comment on above: Order Comment: Speci men Type: BLOOD SPECIMENOrdering Facility: [facility] Address: [address] [address] Performed By: #### 5 8410-2 ####[facility] LABIA [id number] [place] [address] [place] MCH (RBC) [Entitic mass] 32.5 pg Normal 26.0-34.0 [facility] Comment on above: Order Comment: Speci men Type: BLOOD SPECIMENOrdering Facility: [facility] Address: [address] Performed By: #### 5 8410-2 ####[facility] LABCLIA [id number] [address] [place] [facility] MCHC (RBC) [Mass/Vol] 31.5 g/dL Normal 30.5-36.0 [facility] Comment on above: Order Comment: Speci men Type: BLOOD SPECIMENOrdering Facility: [facility] Address: [address] Performed By: #### 5 8410-2 ####[facility] LABCLIA [id number] [place] [address] [place] MCV (RBC) [Entitic vol] 103.0 fL High 80.0-100.0 [facility] Comment on above: Order Comment: Speci men Type: BLOOD SPECIMENOrdering Facility: [facility] Address: [address] [place], [place] [address] Performed By: #### 5 8410-2 ####[facility] LABIA [id number] [place] [address] [place] Nucleated RBC (Bld) [#/Vol] 10*3/uL Normal <0.01 [facility] Comment on above: Order Comment: Speci men Type: BLOOD SPECIMENOrdering Facility: [facility] Address: [address] [place], [place] [address] Performed By: #### 5 8410-2 ####[facility] LABCLIA [id number] [place] [address] [place] Platelet mean volume (Bld) [Entitic vol] 10.5 fL Normal 9.0-12.7 [facility] Comment on above: Order Comment: Speci men Type: BLOOD SPECIMENOrdering Facility: [facility] Address: [address] [place], [place] [address] Performed By: #### 5 8410-2 ####[facility] LABCLIA [id number] [place] [address] [place] Platelets (Bld) [#/Vol] 231 10*3/uL Normal 150-400 [facility] Comment on above: Order Comment: Speci men Type: BLOOD SPECIMENOrdering Facility: [facility] Address: [address] [place] [address] Performed By: #### 5 8410-2 ####[facility] [id number] [place] [address] [place] RBC (Bld) [#/Vol] 3.02 10*6/uL Low 3.90-5.20 [facility] Comment on above: Order Comment: Speci men Type: BLOOD SPECIMENOrdering Facility: [facility] Address: [address] [place] [address] Performed By: #### 5 8410-2 ####[facility] [id number] [place] [address] [place] WBC (Bld) [#/Vol] 6.95 10*3/uL Normal 3.70-11.00 [facility] Comment on above: Order Comment: Speci men Type: BLOOD SPECIMENOrdering Facility: [facility] Address: [address] [place] [address] Performed By: #### 5 8410-2 ####[facility] [id number] [place] [address] [place] CT CHEST W IVCON PEon 2022 CT CHEST W IVCON PE Normal [facility] Comprehensive metabolic 2000 panelon 04-10-2023 Albumin [Mass/Vol] 3.2 g/dL Low 3.9-4.9 [facility] Comment on above: Order Comment: Speci men Type: BLOOD SPECIMENOrdering Facility: [facility] Address: [address] [place] [address] Performed By: #### 2 43238, , 2776-08 ####[facility] LABCLIA [id number] [place] [address] [place] ALP [Catalytic activity/Vol] 51 U/L Normal 34-123 [facility] Comment on above: Order Comment: Speci men Type: BLOOD SPECIMENOrdering Facility: [facility] Address: [address] [place] [address] Performed By: #### 2 432-8, , 2776-08 ####[facility] LABCLIA [id number] [place] [address] [place] ALT [Catalytic activity/Vol] 9 U/L Normal 7-38 [facility] Comment on above: Order Comment: Speci men Type: BLOOD SPECIMENOrdering Facility: [facility] Address: [address] [place] [address] Performed By: #### 2 4328, , 2776-08 ####[facility] LABCLIA [id number] [place] [address] [place] Anion gap [Moles/Vol] 11 mmol/L Normal 9-18 [facility] Comment on above: Order Comment: Speci men Type: BLOOD SPECIMENOrdering Facility: [facility] Address: [address] [place] [address] Performed By: #### 2 432-8, , 2776-08 ####[facility] LABCLIA [id number] [place] [address] [place] AST [Catalytic activity/Vol] 19 U/L Normal 13-35 [facility] Comment on above: Order Comment: Speci men Type: BLOOD SPECIMENOrdering Facility: [facility] Address: [address] Performed By: #### 2 4323-8, , 2776-08 ####[facility] LABCLIA [id number] [place] [address] [place] Bilirubin [Mass/Vol] 0.6 mg/dL Normal 0.2-1.3 [facility] Comment on above: Order Comment: Speci men Type: BLOOD SPECIMENOrdering Facility: [facility] Address: [address] [place] [address] Performed By: #### 2 4323-8, , 2776-08 ####[facility] LABCLIA [id number] [place] [address] [place] Calcium [Mass/Vol] 8.9 mg/dL Normal 8.5-10.2 [facility] Comment on above: Order Comment: Speci men Type: BLOOD SPECIMENOrdering Facility: [facility] Address: [address] [place] [address] Performed By: #### 2 432-8, , 2776-08 ####[facility] LABCLIA [id number] [place] [address] [place] Chloride [Moles/Vol] 102 mmol/L Normal 97-105 [facility] Comment on above: Order Comment: Speci men Type: BLOOD SPECIMENOrdering Facility: [facility] Address: [address] [place], [place] [address] Performed By: #### 2 4323-8, , 2776-08 ####[facility] LABCLIA [id number] [place] [address] [place] CO2 [Moles/Vol] 26 mmol/L Normal 22-30 [facility] Comment on above: Order Comment: Speci men Type: BLOOD SPECIMENOrdering Facility: [facility] Address: [address] [place], [place] [address] Performed By: #### 2 4323-8, , 2776-08 ####[facility] LABCLIA [id number] [place] [address] [place] Creatinine [Mass/Vol] 0.54 mg/dL Low 0.58-0.96 [facility] Comment on above: Order Comment: Zay sandoval Type: BLOOD SPECIMENOrdering Facility: [facility] Address: [address] Performed By: #### 2 4323-8, 22714-8, 2776-08 ####[facility] LABCLIA [id number] [address] Creatinine and Glomerular filtration rate.predicted panel (S/P/Bld) 91 mL/min/1.73m??? Normal >=60 [facility] Comment on above: Order Comment: Zay sandoval Type: BLOOD SPECIMENOrdering Facility: [facility] Address: [address] [address] Result Comment: Marlyn mated Glomerular Filtration Rate [...] , 2776-08 ####[facility] LABCLIA [id number] [address] [facility] Glucose [Mass/Vol] 107 mg/dL High 74-99 [facility] Comment on above: Order Comment: Zay sandoval Type: BLOOD SPECIMENOrdering Facility: [facility] Address: [address] [address] Result Comment: The [place] [employer] (ADA) provides guidance for cutoff [...] Standards of Medical Care in Diabetes 2016, [place] [employer]. Diabetes Care. 2016.39(Suppl 1). Performed By: #### 2 4323-8, , 2776-08 ####[facility] LABCLIA [id number] [place] [address] [place] Potassium [Moles/Vol] 3.7 mmol/L Normal 3.7-5.1 [facility] Comment on above: Order Comment: Speci men Type: BLOOD SPECIMENOrdering Facility: [facility] Address: [address] [place] [address] Performed By: #### 2 4323-8, , 2776-08 ####[facility] LABCLIA [id number] [place] [address] [place] Protein [Mass/Vol] 6.1 g/dL Low 6.3-8.0 [facility] Comment on above: Order Comment: Speci men Type: BLOOD SPECIMENOrdering Facility: [facility] Address: [address] [place] [address] Performed By: #### 2 4323-8, , 2776-08 ####[facility] LABCLIA [id number] [place] [address] [place] Sodium [Moles/Vol] 139 mmol/L Normal 136-144 [facility] Comment on above: Order Comment: Speci men Type: BLOOD SPECIMENOrdering Facility: [facility] Address: [address] Performed By: #### 2 4323-8, , 2776-08 ####[facility] LABCLIA [id number] [place] [address] [place] Urea nitrogen [Mass/Vol] 6 mg/dL Low 7-21 [facility] Comment on above: Order Comment: Speci men Type: BLOOD SPECIMENOrdering Facility: [facility] Address: [address] [place] [address] Performed By: #### 2 4323-8, 17993-8, 2776-08 ####[facility] LABCLIA [id number] [place] [address] [place] Magnesium SerPl-ncon 04-10 Magnesium [Mass/Vol] 1.9 mg/dL Normal 1.7-2.3 [facility] Comment on above: Order Comment: Speci men Type: BLOOD SPECIMENOrdering Facility: [facility] Address: [address] [place] [address] Performed By: #### 2 4323-8, , 2776-08 ####[facility] LABCLIA [id number] [place] [address] [place] Phosphate SerPl-mCncon 04-10 Phosphate [Mass/Vol] 2.5 mg/dL Low 2.7-4.8 [facility] Comment on above: Order Comment: Speci men Type: BLOOD SPECIMENOrdering Facility: [facility] Address: [address] [place] [address] Performed By: #### 2 4323-8, , 2776-08 ####[facility] LABIA [id number] [place] [address] [place] ALLIED HEALTHon 04-09-2023 ALLIED HEALTH Normal [facility] CASE MANAGEMon 04-09-2023 CASE MANAGEM Normal [facility] CBC panel Auto (Bld)on 04-09 Erythrocyte distribution width (RBC) [Ratio] 13.7 % Normal 11.5-15.0 [facility] Comment on above: Order Comment: Speci men Type: BLOOD SPECIMENOrdering Facility: [facility] Address: [address] [place] [address] Performed By: #### 5 8410-2 ####[facility] LABIA [id number] [place] [address] [place] Hematocrit (Bld) [Volume fraction] 33.0 % Low 36.0-46.0 [facility] Comment on above: Order Comment: Speci men Type: BLOOD SPECIMENOrdering Facility: [facility] Address: [address] [place], [place] [address] Performed By: #### 5 8410-2 ####[facility] LABIA [id number] [place] [address] [place] Hemoglobin (Bld) [Mass/Vol] 10.5 g/dL Low 11.5-15.5 [facility] Comment on above: Order Comment: Speci men Type: BLOOD SPECIMENOrdering Facility: [facility] Address: [address] [place], [place] [address] Performed By: #### 5 8410-2 ####[facility] [id number] [place] [address] [place] MCH (RBC) [Entitic mass] 32.4 pg Normal 26.0-34.0 [facility] Comment on above: Order Comment: Speci men Type: BLOOD SPECIMENOrdering Facility: [facility] Address: [address] [place], [place] [address] Performed By: #### 5 8410-2 ####[facility] LABIA [id number] [place] [address] [place] MCHC (RBC) [Mass/Vol] 31.8 g/dL Normal 30.5-36.0 [facility] Comment on above: Order Comment: Speci men Type: BLOOD SPECIMENOrdering Facility: [facility] Address: [address] [place] [address] Performed By: #### 5 8410-2 ####[facility] [id number] [place] [address] [place] MCV (RBC) [Entitic vol] 101.9 fL High 80.0-100.0 [facility] Comment on above: Order Comment: Speci men Type: BLOOD SPECIMENOrdering Facility: [facility] Address: [address] [place], [place] [address] Performed By: #### 5 8410-2 ####[facility] LABIA [id number] [place] [address] [place] Nucleated RBC (Bld) [#/Vol] 10*3/uL Normal <0.01 [facility] Comment on above: Order Comment: Speci men Type: BLOOD SPECIMENOrdering Facility: [facility] Address: [address] [place], [place] [address] Performed By: #### 5 8410-2 ####[facility] LABIA [id number] [place] [address] [place] Platelet mean volume (Bld) [Entitic vol] 10.3 fL Normal 9.0-12.7 [facility] Comment on above: Order Comment: Speci men Type: BLOOD SPECIMENOrdering Facility: [facility] Address: [address] [place], [place] [address] Performed By: #### 5 8410-2 ####[facility] LABIA [id number] [place] [address] [place] Platelets (Bld) [#/Vol] 221 10*3/uL Normal 150-400 [facility] Comment on above: Order Comment: Speci men Type: BLOOD SPECIMENOrdering Facility: [facility] Address: [address] [place], [place] [address] Performed By: #### 5 8410-2 ####[facility] LABIA [id number] [place] [address] [place] RBC (Bld) [#/Vol] 3.24 10*6/uL Low 3.90-5.20 [facility] Comment on above: Order Comment: Speci men Type: BLOOD SPECIMENOrdering Facility: [facility] Address: [address] [place], [place] [address] Performed By: #### 5 8410-2 ####[facility] LABCLIA [id number] [place] [address] [place] WBC (Bld) [#/Vol] 6.76 10*3/uL Normal 3.70-11.00 [facility] Comment on above: Order Comment: Speci men Type: BLOOD SPECIMENOrdering Facility: [facility] Address: [address] Performed By: #### 5 8410-2 ####[facility] LABCLIA [id number] [place] [address] [place] CNPNon 04-09-2023 CNPN Normal [facility] Comprehensive metabolic 2000 panelon 04-09-2023 Albumin [Mass/Vol] 3.3 g/dL Low 3.9-4.9 [facility] Comment on above: Order Comment: Speci men Type: BLOOD SPECIMENOrdering Facility: [facility] Address: [address] [place], [place] [address] Performed By: #### 2 4323-8, , 2776- ####[facility] LABCLIA [id number] [place] [address] [place] ALP [Catalytic activity/Vol] 50 U/L Normal 34-123 [facility] Comment on above: Order Comment: Speci men Type: BLOOD SPECIMENOrdering Facility: [facility] Address: [address] Performed By: #### 2 4323-8, , 2776- ####[facility] LABCLIA [id number] [place] [address] [place] ALT [Catalytic activity/Vol] 9 U/L Normal 7-38 [facility] Comment on above: Order Comment: Speci men Type: BLOOD SPECIMENOrdering Facility: [facility] Address: [address] [place] [address] Performed By: #### 2 4323-8, , 2776-08 ####[facility] LABCLIA [id number] [place] [address] [place] Anion gap [Moles/Vol] 10 mmol/L Normal 9-18 [facility] Comment on above: Order Comment: Speci men Type: BLOOD SPECIMENOrdering Facility: [facility] Address: [address] [place] [address] Performed By: #### 2 4323-8, , 2776-08 ####[facility] LABCLIA [id number] [place] [address] [place] AST [Catalytic activity/Vol] 17 U/L Normal 13-35 [facility] Comment on above: Order Comment: Speci men Type: BLOOD SPECIMENOrdering Facility: [facility] Address: [address] [place] [address] Performed By: #### 2 4323-8, , 2776-08 ####[facility] LABCLIA [id number] [place] [address] [place] Bilirubin [Mass/Vol] 0.7 mg/dL Normal 0.2-1.3 [facility] Comment on above: Order Comment: Speci men Type: BLOOD SPECIMENOrdering Facility: [facility] Address: [address] [place] [address] Performed By: #### 2 4323-8, , 2776-08 ####[facility] LABCLIA [id number] [place] [address] [place] Calcium [Mass/Vol] 8.7 mg/dL Normal 8.5-10.2 [facility] Comment on above: Order Comment: Speci men Type: BLOOD SPECIMENOrdering Facility: [facility] Address: [address] [place], [place] [address] Performed By: #### 2 4323-8, , 2776-08 ####[facility] LABCLIA [id number] [place] [address] [place] Chloride [Moles/Vol] 105 mmol/L Normal 97-105 [facility] Comment on above: Order Comment: Speci men Type: BLOOD SPECIMENOrdering Facility: [facility] Address: [address] [place] [address] Performed By: #### 2 4323-8, , 2776-08 ####[facility] LABIA [id number] [place] [address] [place] CO2 [Moles/Vol] 26 mmol/L Normal 22-30 [facility] Comment on above: Order Comment: Speci men Type: BLOOD SPECIMENOrdering Facility: [facility] Address: [address] [place] [address] Performed By: #### 2 4323-8, , 2776-08 ####[facility] LABIA [id number] [place] [address] [place] Creatinine [Mass/Vol] 0.53 mg/dL Low 0.58-0.96 [facility] Comment on above: Order Comment: Speci men Type: BLOOD SPECIMENOrdering Facility: [facility] Address: [address] [place], [place] [address] Performed By: #### 2 4323-8, , 2776-08 ####[facility] LABIA [id number] [place] [address] [place] Creatinine and Glomerular filtration rate.predicted panel (S/P/Bld) 91 mL/min/1.73m??? Normal >=60 [facility] Comment on above: Order Comment: Speci men Type: BLOOD SPECIMENOrdering Facility: [facility] Address: [facility] [place] [address] Result Comment: Marlyn mated Glomerular Filtration Rate [...] , 2776-08 ####[facility] LABCLIA [id number] [address] [address] [place] Glucose [Mass/Vol] 98 mg/dL Normal 74-99 [facility] Comment on above: Order Comment: Speci men Type: BLOOD SPECIMENOrdering Facility: [facility] Address: [address] [place] [address] Result Comment: The [place] [employer] (ADA) provides guidance for cutoff [...] Standards of Medical Care in Diabetes 2016, [place] [employer]. Diabetes Care. 2016.39(Suppl 1). Performed By: #### 2 4323-8, , 2776-08 ####[facility] LABCLIA [id number] [address] [address] [place] Potassium [Moles/Vol] 3.8 mmol/L Normal 3.7-5.1 [facility] Comment on above: Order Comment: Speci men Type: BLOOD SPECIMENOrdering Facility: [facility] Address: [address] [place] [address] Performed By: #### 2 4323-8, 69341-8, 2776- ####[facility] LABCLIA [id number] [place] [address] [place] Protein [Mass/Vol] 5.8 g/dL Low 6.3-8.0 [facility] Comment on above: Order Comment: Speci men Type: BLOOD SPECIMENOrdering Facility: [facility] Address: [address] Performed By: #### 2 4323-8, , 2776-08 ####[facility] LABIA [id number] [place] [address] [place] Sodium [Moles/Vol] 141 mmol/L Normal 136-144 [facility] Comment on above: Order Comment: Speci men Type: BLOOD SPECIMENOrdering Facility: [facility] Address: [address] [place] [address] Performed By: #### 2 4323-8, , 2776-08 ####[facility] LABIA [id number] [place] [address] [place] Urea nitrogen [Mass/Vol] 7 mg/dL Normal 7-21 [facility] Comment on above: Order Comment: Speci men Type: BLOOD SPECIMENOrdering Facility: [facility] Address: [address] [place], [place] [address] Performed By: #### 2 4323-8, , 2776-08 ####[facility] LABIA [id number] [place] [address] [place] Magnesium SerPl-mCncon 04-09 Magnesium [Mass/Vol] 1.9 mg/dL Normal 1.7-2.3 [facility] Comment on above: Order Comment: Speci men Type: BLOOD SPECIMENOrdering Facility: [facility] Address: [address] [place], [place] [address] Performed By: #### 2 4323-8, 83140-4, 2776-1 ####[facility] LABCLIA [id number] [place] [address] [place] Phosphate SerPl-mCncon 04-09 Phosphate [Mass/Vol] 2.4 mg/dL Low 2.7-4.8 [facility] Comment on above: Order Comment: Speci men Type: BLOOD SPECIMENOrdering Facility: [facility] Address: [address] Performed By: #### 2 4323-8, , 2776-08 ####[facility] LABCLIA [id number] [address] [facility] THERAPY NTon 04-09-2023 THERAPY NT Normal [facility] THERAPY NT Normal [facility] CASE MGT INIT ASSESon 2022 CASE MGT INIT ASSES Normal [facility] CBC panel Auto (Bld)on 04-08 Erythrocyte distribution width (RBC) [Ratio] 13.8 % Normal 11.5-15.0 [facility] Comment on above: Order Comment: Speci men Type: BLOOD SPECIMENOrdering Facility: [facility] Address: [address] [place] [address] Performed By: #### 5 8410-2 ####[facility] LABCLIA [id number] [place] [address] [place] Hematocrit (Bld) [Volume fraction] 36.0 % Normal 36.0-46.0 [facility] Comment on above: Order Comment: Speci men Type: BLOOD SPECIMENOrdering Facility: [facility] Address: [address] [place], [place] [address] Performed By: #### 5 8410-2 ####[facility] LABCLIA [id number] [place] [address] [place] Hemoglobin (Bld) [Mass/Vol] 11.8 g/dL Normal 11.5-15.5 [facility] Comment on above: Order Comment: Speci men Type: BLOOD SPECIMENOrdering Facility: [facility] Address: [address] Performed By: #### 5 8410-2 ####[facility] LABCLIA [id number] [address] [place] MCH (RBC) [Entitic mass] 32.4 pg Normal 26.0-34.0 [facility] Comment on above: Order Comment: Speci men Type: BLOOD SPECIMENOrdering Facility: [facility] Address: [address] [place], [place] [address] Performed By: #### 5 8410-2 ####[facility] LABCLIA [id number] [place] [address] [place] MCHC (RBC) [Mass/Vol] 32.8 g/dL Normal 30.5-36.0 [facility] Comment on above: Order Comment: Speci men Type: BLOOD SPECIMENOrdering Facility: [facility] Address: [address] [place], [place] [address] Performed By: #### 5 8410-2 ####[facility] LABIA [id number] [place] [address] [place] MCV (RBC) [Entitic vol] 98.9 fL Normal 80.0-100.0 [facility] Comment on above: Order Comment: Speci men Type: BLOOD SPECIMENOrdering Facility: [facility] Address: [address] [place], [place] [address] Performed By: #### 5 8410-2 ####[facility] LABCLIA [id number] [address] [place] Nucleated RBC (Bld) [#/Vol] 10*3/uL Normal <0.01 [facility] Comment on above: Order Comment: Speci men Type: BLOOD SPECIMENOrdering Facility: [facility] Address: [address] [place], [place] [address] Performed By: #### 5 8410-2 ####[facility] LABIA [id number] [place] [address] [place] Platelet mean volume (Bld) [Entitic vol] 9.6 fL Normal 9.0-12.7 [facility] Comment on above: Order Comment: Speci men Type: BLOOD SPECIMENOrdering Facility: [facility] Address: [address] [place], [place] [address] Performed By: #### 5 8410-2 ####[facility] LABIA [id number] [place] [address] [place] Platelets (Bld) [#/Vol] 264 10*3/uL Normal 150-400 [facility] Comment on above: Order Comment: Speci men Type: BLOOD SPECIMENOrdering Facility: [facility] Address: [address] [place], [place] [address] Performed By: #### 5 8410-2 ####[facility] LABIA [id number] [place] [address] [place] RBC (Bld) [#/Vol] 3.64 10*6/uL Low 3.90-5.20 [facility] Comment on above: Order Comment: Speci men Type: BLOOD SPECIMENOrdering Facility: [facility] Address: [address] [place] [address] Performed By: #### 5 8410-2 ####[facility] LABIA [id number] [place] [address] [place] WBC (Bld) [#/Vol] 8.97 10*3/uL Normal 3.70-11.00 [facility] Comment on above: Order Comment: Speci men Type: BLOOD SPECIMENOrdering Facility: [facility] Address: [address] [place], [place] [address] Performed By: #### 5 8410-2 ####[facility] LABIA [id number] [place] [address] [place] Erythrocyte distribution width (RBC) [Ratio] 14.0 % Normal 11.5-15.0 [facility] Comment on above: Order Comment: Speci men Type: BLOOD SPECIMENOrdering Facility: [facility] Address: [address] [place] [address] Performed By: #### 5 8410-2 ####[facility] LABIA [id number] [place] [address] [place] Hematocrit (Bld) [Volume fraction] 35.4 % Low 36.0-46.0 [facility] Comment on above: Order Comment: Speci men Type: BLOOD SPECIMENOrdering Facility: [facility] Address: [address] [place] [address] Performed By: #### 5 8410-2 ####[facility] [id number] [place] [address] [place] Hemoglobin (Bld) [Mass/Vol] 11.7 g/dL Normal 11.5-15.5 [facility] Comment on above: Order Comment: Speci men Type: BLOOD SPECIMENOrdering Facility: [facility] Address: [address] [place] [address] Performed By: #### 5 8410-2 ####[facility] LABIA [id number] [place] [address] [place] MCH (RBC) [Entitic mass] 33.2 pg Normal 26.0-34.0 [facility] Comment on above: Order Comment: Speci men Type: BLOOD SPECIMENOrdering Facility: [facility] Address: [address] [place] [address] Performed By: #### 5 8410-2 ####[facility] LABIA [id number] [place] [address] [place] MCHC (RBC) [Mass/Vol] 33.1 g/dL Normal 30.5-36.0 [facility] Comment on above: Order Comment: Speci men Type: BLOOD SPECIMENOrdering Facility: [facility] Address: [address] [place] [address] Performed By: #### 5 8410-2 ####[facility] LABCLIA [id number] [place] [address] [place] MCV (RBC) [Entitic vol] 100.6 fL High 80.0-100.0 [facility] Comment on above: Order Comment: Speci men Type: BLOOD SPECIMENOrdering Facility: [facility] Address: [address] [place], [place] [address] Performed By: #### 5 8410-2 ####[facility] LABIA [id number] [address] [place] Nucleated RBC (Bld) [#/Vol] 10*3/uL Normal <0.01 [facility] Comment on above: Order Comment: Speci men Type: BLOOD SPECIMENOrdering Facility: [facility] Address: [address] [place], [place] [address] Performed By: #### 5 8410-2 ####[facility] LABIA [id number] [place] [address] [place] Platelet mean volume (Bld) [Entitic vol] 10.0 fL Normal 9.0-12.7 [facility] Comment on above: Order Comment: Speci men Type: BLOOD SPECIMENOrdering Facility: [facility] Address: [address] [place], [place] [address] Performed By: #### 5 8410-2 ####[facility] LABCLIA [id number] [place] [address] [place] Platelets (Bld) [#/Vol] 277 10*3/uL Normal 150-400 [facility] Comment on above: Order Comment: Speci men Type: BLOOD SPECIMENOrdering Facility: [facility] Address: [address] Performed By: #### 5 8410-2 ####[facility] LABIA [id number] [place] [address] [place] RBC (Bld) [#/Vol] 3.52 10*6/uL Low 3.90-5.20 [facility] Comment on above: Order Comment: Speci men Type: BLOOD SPECIMENOrdering Facility: [facility] Address: [address] Performed By: #### 5 8410-2 ####[facility] LABIA [id number] [place] [address] [place] WBC (Bld) [#/Vol] 9.47 10*3/uL Normal 3.70-11.00 [facility] Comment on above: Order Comment: Speci men Type: BLOOD SPECIMENOrdering Facility: [facility] Address: [address] [place] [address] Performed By: #### 5 8410-2 ####[facility] LABIA [id number] [place] [address] [place] Comprehensive metabolic 2000 panelon 04-08-2023 Albumin [Mass/Vol] 3.7 g/dL Low 3.9-4.9 [facility] Comment on above: Order Comment: Speci men Type: BLOOD SPECIMENOrdering Facility: [facility] Address: [address] [place], [place] [address] Performed By: #### 2 4323-8, 2777-1, 44035-1 ####[facility] LABIA [id number] [place] [address] [place] ALP [Catalytic activity/Vol] 58 U/L Normal 34-123 [facility] Comment on above: Order Comment: Speci men Type: BLOOD SPECIMENOrdering Facility: [facility] Address: [address] [place], [place] [address] Performed By: #### 2 4323-8, 2777, ####[facility] LABCLIA [id number] [place] [address] [place] ALT [Catalytic activity/Vol] 9 U/L Normal 7-38 [facility] Comment on above: Order Comment: Speci men Type: BLOOD SPECIMENOrdering Facility: [facility] Address: [address] Performed By: #### 2 4323-8, 27702-06, ####[facility] LABCLIA [id number] [place] [address] [place] Anion gap [Moles/Vol] 16 mmol/L Normal 9-18 [facility] Comment on above: Order Comment: Speci men Type: BLOOD SPECIMENOrdering Facility: [facility] Address: [address] Performed By: #### 2 4323-8, 27702-06, ####[facility] LABIA [id number] [address] [place] AST [Catalytic activity/Vol] 19 U/L Normal 13-35 [facility] Comment on above: Order Comment: Speci men Type: BLOOD SPECIMENOrdering Facility: [facility] Address: [address] Performed By: #### 2 4323-8, 27702-06, ####[facility] LABIA [id number] [place] [address] [place] Bilirubin [Mass/Vol] 0.6 mg/dL Normal 0.2-1.3 [facility] Comment on above: Order Comment: Speci men Type: BLOOD SPECIMENOrdering Facility: [facility] Address: [address] Performed By: #### 2 4323-8, 27702-06, ####[facility] LABCLIA [id number] [place] [address] [place] Calcium [Mass/Vol] 9.0 mg/dL Normal 8.5-10.2 [facility] Comment on above: Order Comment: Speci men Type: BLOOD SPECIMENOrdering Facility: [facility] Address: [address] [place], [place] [address] Performed By: #### 2 4323-8, 2776-08, ####[facility] LABCLIA [id number] [place] [address] [place] Chloride [Moles/Vol] 103 mmol/L Normal 97-105 [facility] Comment on above: Order Comment: Speci men Type: BLOOD SPECIMENOrdering Facility: [facility] Address: [address] [place] [address] Performed By: #### 2 4323-8, 2776-08, ####[facility] LABCLIA [id number] [place] [address] [place] CO2 [Moles/Vol] 20 mmol/L Low 22-30 [facility] Comment on above: Order Comment: Speci men Type: BLOOD SPECIMENOrdering Facility: [facility] Address: [address] [place], [place] [address] Performed By: #### 2 4323-8, 2776-08, ####[facility] LABCLIA [id number] [place] [address] [place] Creatinine [Mass/Vol] 0.56 mg/dL Low 0.58-0.96 [facility] Comment on above: Order Comment: Speci men Type: BLOOD SPECIMENOrdering Facility: [facility] Address: [address] [place], [place] [address] Performed By: #### 2 4323-8, 27702-06, ####[facility] LABCLIA [id number] [place] [address] [place] Creatinine and Glomerular filtration rate.predicted panel (S/P/Bld) 90 mL/min/1.73m??? Normal >=60 [facility] Comment on above: Order Comment: Zay sandoval Type: BLOOD SPECIMENOrdering Facility: [facility] Address: [address] [place] [address] Result Comment: Marlyn mated Glomerular Filtration Rate [...] actual GFR. Performed By: #### 2 4323-8, 2777-1, 11017-3 ####[facility] LABIA [id number] [place] [address] [place] Glucose [Mass/Vol] 132 mg/dL High 74-99 [facility] Comment on above: Order Comment: Zay sandoval Type: BLOOD SPECIMENOrdering Facility: [facility] Address: [address] [place] [address] Result Comment: The [place] [employer] (ADA) provides guidance for cutoff [...] Standards of Medical Care in Diabetes 2016, [place] [employer]. Diabetes Care. 2016.39(Suppl 1). Performed By: #### 2 4323-8, 2777-1, 16686-2 ####[facility] LABCLIA [id number] [place] [address] [place] Potassium [Moles/Vol] 4.1 mmol/L Normal 3.7-5.1 [facility] Comment on above: Order Comment: Speci men Type: BLOOD SPECIMENOrdering Facility: [facility] Address: [address] [place] [address] Performed By: #### 2 4323-8, 27702-06, ####[facility] LABCLIA [id number] [place] [address] [place] Protein [Mass/Vol] 6.2 g/dL Low 6.3-8.0 [facility] Comment on above: Order Comment: Speci men Type: BLOOD SPECIMENOrdering Facility: [facility] Address: [address] [place] [address] Performed By: #### 2 4323-8, 2776-08, ####[facility] LABIA [id number] [place] [address] [place] Sodium [Moles/Vol] 139 mmol/L Normal 136-144 [facility] Comment on above: Order Comment: Speci men Type: BLOOD SPECIMENOrdering Facility: [facility] Address: [address] [place] [address] Performed By: #### 2 4323-8, 2776-08, ####[facility] LABCLIA [id number] [place] [address] [place] Urea nitrogen [Mass/Vol] 9 mg/dL Normal 7-21 [facility] Comment on above: Order Comment: Speci men Type: BLOOD SPECIMENOrdering Facility: [facility] Address: [address] [place], [place] [address] Performed By: #### 2 4323-8, 27702-06, ####[facility] LABCLIA [id number] [place] [id number] [place] Magnesium SerPl-mCncon 04-08 Magnesium [Mass/Vol] 1.9 mg/dL Normal 1.7-2.3 [facility] Comment on above: Order Comment: Speci men Type: BLOOD SPECIMENOrdering Facility: [facility] Address: [address] [place] [address] Performed By: #### 2 4323-8, 2777-1, ####[facility] LABCLIA [id number] [place] [id number] [place] NURSING PROGon 04-08-2023 NURSING PROG Normal [facility] Phosphate SerPl-mCncon 04-08 Phosphate [Mass/Vol] 3.8 mg/dL Normal 2.7-4.8 [facility] Comment on above: Order Comment: Speci men Type: BLOOD SPECIMENOrdering Facility: [facility] Address: [address] [place], [place] [address] Performed By: #### 2 4323-8, 2777-1, ####[facility] LABCLIA [id number] [place] [address] [facility] THERAPY NTon 04-08-2023 THERAPY NT Normal [facility] THERAPY NT Normal [facility] XR CHEST 1V FRONTAL PORTon 0 04-08-2023 XR CHEST 1V FRONTAL PORT Normal [facility] ANES POSTPROC EVALon 023 ANES POSTPROC EVAL Normal [facility] ANES PRE-OPon 04-07-2023 ANES PRE-OP Normal [facility] BRIEF OP NOTon 04-07-2023 BRIEF OP NOT Normal [facility] CONFIRM BLOOD TYPEon 023 ABO A Normal [facility] Comment on above: Order Comment: Speci men Type: BLOOD SPECIMENOrdering Facility: [facility] Address: [address] [place], [place] [address] Performed By: #### C ONABO ####[facility] BLOOD BANKCLIA [id number] [place] [address] [place] Rh Nom (Bld) Positive Normal [facility] Comment on above: Order Comment: Speci men Type: BLOOD SPECIMENOrdering Facility: [facility] Address: [address] [place] [address] Performed By: #### C ONABO ####[facility] BLOOD BANKCLIA [id number] [address] CYTOLOGY NON-GYNon 3 CASE REPORT Normal [facility] Comment on above: Order Comment: Speci men Type: SPECIMEN OBTAINED BY LAVAGEOrdering Facility: [facility] Address: [address] [place] [address] Result Comment: [facility] Cytology Report Case: [id number] Provider: Eliot Castillo MD Collected: 04/07/2023 12:23 PMOrdering Location: Admitting Received: 04/07/2023 02:37 PMPathologist: Catina Pyle MDSpecimen: PELVIC WASHING Performed By: #### C YTONON ####[facility] LABIA [id number] [address] CLINICAL HISTORY Normal [facility] Comment on above: Order Comment: Speci men Type: SPECIMEN OBTAINED BY LAVAGEOrdering Facility: [facility] Address: [address] [place] [address] Result Comment: Pre- op diagnosis:Ovarian mass [N83.8]Preop examination [Z01.818] Performed By: #### C YTONON ####[facility] LABIA [id number] [address] [facility] FINAL DIAGNOSIS Normal [facility] Comment on above: Order Comment: Speci men Type: SPECIMEN OBTAINED BY LAVAGEOrdering Facility: [facility] Address: [address] [place] [address] Result Comment: A - PELVIC WASHING Negative for malignant cells.The following cell blocks were associated with this case:A1Cell Block, Alcohol Fixed Performed By: #### C YTONON ####[facility] LABCLIA [id number] [address] [place] FINAL PERFORMING LAB Normal [facility] Comment on above: Order Comment: Speci men Type: SPECIMEN OBTAINED BY LAVAGEOrdering Facility: [facility] Address: [address] [place] [address] Result Comment: Tech nical component, medical office professional instructor screening performed at [facility], [address] [address] CLIA# [id number] interpretation performed at [facility], [address] [place] [id number] CLIA# [id number] Director: Antonio Esparza M.D. Performed By: #### C YTALFREDON ####[facility] LABCLIA [id number] [address] [place] GROSS DESCRIPTION Normal [facility] Comment on above: Order Comment: Speci men Type: SPECIMEN OBTAINED BY LAVAGEOrdering Facility: [facility] Address: [address] [place] [address] Result Comment: A. P ELVIC [id number] cc cloudy red fluid with material. ThinPrep and Cell Block prepared. Performed By: #### C YTONON ####[facility] LABCLIA [id number] [place] [address] [place] OPERATIVE NOon 04-07-2023 OPERATIVE NO Normal [facility] SURGICAL PATHOLOGYon 023 CASE REPORT Normal [facility] Comment on above: Order Comment: Speci men Type: TISSUE SPECIMENOrdering Facility: [facility] Address: [address] [place] [address] Result Comment: Surg ical Pathology Report Case: [id number] Provider: Eliot Castillo MD Collected: 04/07/2023 12:27 [...] diaphram peritoneum biopsy Performed By: #### S ####[facility] LABCLIA [id number] [address] CLINICAL HISTORY Normal [facility] Comment on above: Order Comment: Speci men Type: TISSUE SPECIMENOrdering Facility: [facility] Address: [address] [place] [address] Result Comment: Pre- op diagnosis:Ovarian mass [N83.8]Preop examination [Z01.818] Performed By: #### S ####[facility] LABCLIA [id number] [address] DIAGNOSIS COM[address] Dr[address] Nicole Maher reviewe d selected slides from part A and agrees with the diagnosis. Normal [facility] Comment on above: Order Comment: Speci men Type: TISSUE SPECIMENOrdering Facility: [facility] Address: [address] [place] [address] Performed By: #### S ####[facility] LABCLIA [id number] [address] FINAL DIAGNOSIS Normal [facility] Comment on above: Order Comment: Speci men Type: TISSUE SPECIMENOrdering Facility: [facility] Address: [address] [place] [address] Result Comment: A. R ight ovary and [...] para-aortic, excision: Two benign lymph nodes (0/2).I. "Peritoneum over right ureter", biopsy: Benign fibroadipose tissue.J. Lymph nodes, right para-aortic, excision: Three benign lymph nodes (0/3).K. Left paracolic gutter peritoneum, biopsy: Benign fibroadipose tissue.L. Right paracolic gutter peritoneum, biopsy: Benign fibroadipose tissue.M. Appendix, appendectomy: Fibrous obliteration.N. Omentum, excision: Benign fibroadipose tissue.O. Right diaphragm, biopsy: Benign fibroadipose tissue. Performed By: #### S ####[facility] LABCLIA [id number] [facility] [place] [address] [place] FINAL PERFORMING LAB Normal [facility] Comment on above: Order Comment: Speci men Type: TISSUE SPECIMENOrdering Facility: [facility] Address: [address] [place] [address] Result Comment: Diag nostic interpretation performed at [facility], [address] [place] [id number] CLIA# [id number] Director: Antonio Esparza M.D. Performed By: #### S ####[facility] LABCLIA [id number] [address] [place] [address] [place] GROSS DESCRIPTION Normal [facility] Comment on above: Order Comment: Speci men Type: TISSUE SPECIMENOrdering Facility: [facility] Address: [address] Result Comment: A. F ALLOPIAN TUBE AND OVARY RIGHTReceived in formalin labeled "fallopian tube and ovary right" is a right fallopian tube and ovary weighing 998.0 g. The right fallopian tube is 16 cm long and 0.5 cm in greatest diameter. The ovary is expanded and distorted by a mass measuring 18.5 x 14 x 8.8 cm. The external surface of the mass is [id number] and smooth. Serial sectioning of the mass [...] the ovary ends and the solid mass begins.Picker/Puller sections are submitted as follows:A 2-11 employee relations representative sections of massA 12-13 possible residual [id number] fallopian tube fimbriated end bisected and totally submitted with employee relations representative cross-sectionMW 04/08/2023. UTERUS CERVIX WITH FALLOPIAN TUBE AND OVARY LEFTReceived in formalin labeled "uterus, cervix with fallopian tube and ovary left" is a uterus with attached cervix and [...] with a crinkled appearance ovarian parenchyma is unremarkable.Picker/Puller sections are submitted as follows:B1 cervix 6:00B2 cervix 12:00B3 anterior uterine wallB4 posterior uterine wallB5 left ovaryB6 left fallopian tube fimbriated end bivalved and totally submitted and employee relations representative cross-sectionMW 04/08/2023. PERITONEUM BIOPSYReceived fresh labeled "left pelvic peritoneum" is a irregular segment of de souza-pink partially cauterized membranous tissue measuring 1.5 x 0.3 x 0.3 cm. Tissue may not survive processing. Specimen is entirely submitted in C1.D. PERITONEUM BIOPSYReceived fresh labeled "cul-de-sac peritoneum" is a irregular segment of pink-red membranous soft tissue measuring 0.4 x 0.3 x 0.3 cm. Specimen is entirely submitted in D1.E. PERITONEUM BIOPSYReceived fresh labeled "bladder peritoneum" is a irregular segment of de souza-pink membranous soft tissue measuring 0.6 x 0.4 x 0.3 cm. Specimen is entirely submitted in E1.F. PERITONEUM BIOPSYReceived fresh labeled "right pelvic peritoneum" is a irregular segment of de souza-pink membranous soft tissue with attached adipose tissue measuring 1.0 x 0.7 x 0.4 cm. Specimen is entirely submitted in F1.G. LYMPH NODEReceived fresh labeled "right pelvic lymph nodes" is a segment of fibroadipose soft tissue measuring 7.0 x 5.0 x 1.5 cm. The specimen is sectioned to reveal 10 lymph node candidates ranging from 0.6 cm to 1.4 cm in greatest dimension. The nodules are totally submitted as follows:G1 4 lymph node candidates, in totoG2 3 lymph node candidates, in totoG3 3 lymph node candidates, in totoH. LYMPH NODEReceived fresh labeled "left para-aortic lymph nodes" is a segment of fibroadipose soft tissue [...] #2 in totoI. PERITONEUM BIOPSYReceived fresh labeled "peritoneum over right ureter" are 2 irregular segments of de souza-pink membranous aggregating to 2.5 x 1.5 x 0.8 cm. Specimen is entirely submitted in I1.J. LYMPH NODEReceived fresh labeled "right periaortic lymph nodes" is a segment of fibroadipose soft tissue measuring 4.5 x 3.0 x 1.5 cm. The specimen is palpated and sectioned to reveal 4 lymph node candidates ranging from 1.5 cm to 2.8 cm greatest dimension.The nodules are entirely submitted as follows:J1 1 lymph node candidate, in totoJ2 1 lymph node candidate, in totoJ3 2 lymph node candidates, in totoK. PERITONEUM BIOPSYReceived fresh labeled "left paracolic gutter peritoneum" is an irregular segment of de souza-pink membranous soft tissue with attached adipose tissue measuring 1.0 x 0.6 x 0.3 cm. Specimen is entirely submitted in K1.L. PERITONEUM BIOPSYReceived fresh labeled ""right paracolic gutter peritoneum" is an irregular segment of de souza-pink membranous soft tissue with attached adipose tissue measuring 1.0 x 0.8 x 0.3 cm. Specimen is entirely submitted in L1.M. APPENDIXReceived in formalin labeled "appendix" is an appendix measuring 2.6 cm in length by 0.5 cm in diameter with attached mesoappendix (3.3 x 1.7 x 1.0 cm). The serosal surfaces are de souza-pink, smooth and glistening. No defects are grossly identified. The attached mesoappendiceal fat is yellow-brown and lobulated. Sectioning reveals a unremarkable lumen.Picker/Puller sections are submitted as follows:M1 inked proximal resection margin and mesoappendiceal resection marginM2 entire distal tip, bisected and central cross-sections through lumenGross examination performed at [address] [address] CLIA# [id number] 04/07/23 3:59 PMN. OMENTUM RESECTIONReceived fresh, labeled "omentum resection" is an unoriented, lobulated portion of adipose tissue, consistent with omentum, measuring 25.0 x 15.0 x 0.6 cm. Sectioning reveals soft, de souza, homogenous cut surfaces consisting entirely of adipose tissue. Picker/Puller sections are submitted in cassettes N1-N6.AKA April 07, 2023 2:53 PMGross examination performed at [facility], [address] [place], [place] [address]O. PERITONEUM BIOPSYReceived fresh labeled "right diaphragm peritoneum biopsy" irregular segment of de souza-pink membranous soft tissue measuring 0.3 x 0.2 x 0.1 cm. Specimen is entirely submitted in O1[place] [address] CLIA# [id number] 04/07/23 3:55 PM Performed By: #### S ####[facility] [id number] [address] [place] INTRAOPERATIVE DIAGNOSIS Normal [facility] Comment on above: Order Comment: Speci men Type: TISSUE SPECIMENOrdering Facility: [facility] Address: [address] [place] [address] Result Comment: A. 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 Juanito Will).Intraoperative diagnosis performed at [facility], [address] [place], [place] [address]B. UTERUS CERVIX WITH FALLOPIAN TUBE AND OVARY LEFTFrozen section cancelled per Dr. Juanito Will. Grossly normal endometrium. Discussed with Dr. Castillo.Intraoperative diagnosis performed at [place] [address] Performed By: #### S ####[facility] [id number] [address] [place] SYNOPTIC REPORT Normal [facility] Comment on above: Order Comment: Speci men Type: TISSUE SPECIMENOrdering Facility: [facility] Address: [address] [place] [address] Result Comment: OVAR Y or FALLOPIAN TUBE or PRIMARY PERITONEUMOVARY OR FALLOPIAN TUBE OR PRIMARY PERITONEUM: RESECTION - All Pzdcmmhyv2ic Edition - Protocol posted: 10/28/2022SPECIMEN Procedure: Total [...] pathology report. pT Category: pT1c2 pN Category: pW1CUNS STAGE FIGO Stage: IC2 Performed By: #### S ####[facility] [id number] [address] [address] [place] CNPNon 04-06-2023 CNPN Normal [facility] HISTORY PHYSICALon 3 HISTORY PHYSICAL Normal [facility] Jason 03-24-2023 CNPN Telephone (AGCARDPOB ) ----- STEFANO WASHINGTON ([id number]) 1940 F Date Time Provider Department 03/24/23 DARI ARRIAGA During your visit today, we recorded the following information about you: Nanci Calloway 03/24/2023 2:37 PM Signed Received CC in [facility] but patient will be receiving services elsewhere [...] Encounter Status:Closed by NANCI CALLOWAY on 03/24/23 Normal [facility] ECG COMPLETEon 03-22-2023 Atrial Rate 99 BPM [facility] Calculated P [place] 39 degrees [facility] Calculated R [place] 114 degrees [facility] Calculated T [place] 6 degrees [facility] P-R Interval 177 ms [facility] QRS Duration 133 ms [facility] QT Interval 374 ms [facility] QTC Calculation (Bazett) 483 ms [facility] Ventricular Rate 100 BPM [facility] CNPNon 03-16-2023 CNPN Normal [facility] CNCOon 03-10-2023 CNCO Letter Text Normal [facility] CNPNon 03-10-2023 CNPN Normal [facility] CT ABD/PEL W IVCONon 023 Radiology Result ACTIONABLE Abnormal [facility] CT ABD/PEL W IVCON Invalid Interpretation Code [facility] CNPNon 02-26-2023 CNPN Normal [facility] CNPNon 02-02-2023 CNPN Normal [facility] CNTHERAPYon 02-02-2023 CNTHERAPY Normal [facility] XR Lumbar spine 3 Viewson IMPRESSION: 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 COMPRESSION FRACTURE OF THE T11 VERTEBRAL BODY. Drop Machine Operator: [facility] Transcribe Date/Time: Jan 30 2023 1:51P Dictated by : CHRISTOPHER GIRALDO MD This examination was interpreted and the report reviewed and electronically signed by: CHRISTOPHER GIRALDO MD on Jan 30 2023 1:56PM [facility] DIVISION OF RADIOLOGY * * [...] thoracic spine. DIVISION OF RADIOLOGY Provider, Matthew lanier [place] - 01/30/2023 * * *Final Report* * [...] COMPRESSION FRACTURE OF THE T11 VERTEBRAL BODY. Drop Machine Operator: PSCB Transcribe Date/Time: Jan 30 2023 1:51P Dictated by : CHRISTOPHER GIRALDO MD This examination was interpreted and the report reviewed and electronically signed by: CHRISTOPHER GIRALDO MD on Jan 30 2023 1:56PM EST [facility] XR Lumbar spine 3 ViewsOrder ed By: Ccf Provider on 01-30-2023 [facility] CNOVon 01-27-2023 CNOV Normal [facility] CNPNon 01-27-2023 CNPN Normal [facility] XR LUMBAR 3V AP/LAT/L5-S1on 01-27-2023 XR LUMBAR 3V AP/LAT/L5-S1 Normal [facility] XR LUMBAR GENERAL 3V AP/LAT/ L5-S1on 01-27-2023 [facility] XR Lumbar spine 3 [place] Radiology Study observation (narrative) [facility] Bacteria Ur Culton 3 Bacteria identified Cx Nom (U) Normal [facility] Comment on above: Performed By: #### 6 30-4 ####[facility] LABCLIA [id number] [address] [place] CNPNon 01-25-2023 CNPN Normal [facility] XR Chest PA and Lateralon IMPRESSION: 1. No pleural effusion or consolidation 2. Large hiatal hernia Drop Machine Operator: IVONNE Transcribe Date/Time: Jul 20 2022 8:31A Dictated by : JANAY DESAI MD This examination was interpreted and the report reviewed and electronically signed by: JANAY DESAI MD on Jul 20 2022 8:32AM [facility] DIVISION OF RADIOLOGY * * [...] Large hiatal hernia. DIVISION OF RADIOLOGY Provider, [facility] - 07/20/2022 * * *Final [...] effusion or consolidation 2. Large hiatal hernia Drop Machine Operator: IVONNE Transcribe Date/Time: Jul 20 2022 8:31A Dictated by : JANAY DESAI MD This examination was interpreted and the report reviewed and electronically signed by: JANAY DESAI MD on Jul 20 2022 8:32AM EST [facility] Radiology Study observation (narrative) [facility] XR Chest PA and LateralOrder ed By: Ccf Provider on 07-20-2022 [facility] LIPID PANEL, NONFASTINGon Cholesterol [Mass/Vol] 238 mg/dL High <200 mg/dL [facility] HDL Cholesterol, Nonfasting 64 mg/dL >39 mg/dL [facility] LDL Cholesterol, Nonfasting 127 mg/dL High <100 mg/dL [facility] LDL/HDL Ratio, Nonfasting 1.98 mg/dL <2.54 mg/dL [facility] Non HDL Cholesterol, Nonfasting 174 mg/dL High <130 mg/dL [facility] Total Chol/HDL Ratio, Nonfasting 3.72 mg/dL <5.10 mg/dL [facility] Triglycerides, Nonfasting 235 mg/dL High <150 mg/dL [facility] VLDL Cholesterol, Nonfasting 47 mg/dL High <30 mg/dL [facility] TSH BLDon 06-27-2022 TSH Qn 3.260 m[IU]/L 0.270 - 4.200 mIU/L [facility] Urinalysis complete panel (U )on 12-13-2021 Bilirubin Ql (U) Negative Negative [facility] Clarity (Unsp spec) Clear Clear [facility] Color (U) Light Yellow Yellow [facility] Epithelial cells LM.HPF (Urine sed) [#/Area] Few [facility] Glucose Test strip (U) [Mass/Vol] Negative Negative [facility] Hemoglobin Ql (U) Negative Negative [facility] Ketones Ql (U) Negative Negative [facility] Leukocyte esterase Test strip Ql (U) Negative Negative [facility] Nitrite Ql (U) Negative Negative [facility] pH (U) 6.0 [pH] 5.0 - 8.0 [facility] Protein (U) [Mass/Vol] Negative Negative Cl [facility] RBC LM.HPF (Urine sed) [#/Area] 0-3 /HPF 0-3 /HPF [facility] Specific gravity (U) [Rel density] 1.006 1.005 - 1.030 [facility] Urobilinogen Ql (U) Negative Negative [facility] WBC LM.HPF (Urine sed) [#/Area] 0-5 /HPF 0-5 /HPF [facility] CBC W Auto Differential pane l (Bld)on 12-12-2021 Abs Immature Gran <0.03 <0.10 k/uL [facility] Basophils (Bld) [#/Vol] 0.06 10*3/uL <0.11 k/uL [facility] Basophils/100 WBC (Bld) 1.2 % [facility] Differential cell count method Nom (Bld) Auto [facility] Eosinophils (Bld) [#/Vol] 0.13 10*3/uL <0.46 k/uL [facility] Eosinophils/100 WBC (Bld) 2.6 % [facility] Erythrocyte distribution width (RBC) [Ratio] 14.2 % 11.5 - 15.0 % [facility] Hematocrit (Bld) [Volume fraction] 39.6 % 36.0 - 46.0 % [facility] Hemoglobin (Bld) [Mass/Vol] 12.6 g/dL 11.5 - 15.5 g/dL [facility] Immature Gran % 0.4 % [facility] Lymphocytes (Bld) [#/Vol] 1.67 10*3/uL 1.00 - 4.00 k/uL [facility] Lymphocytes/100 WBC (Bld) 33.7 % [facility] MCH (RBC) [Entitic mass] 31.0 pg 26.0 - 34.0 pg [facility] MCHC (RBC) [Mass/Vol] 31.8 g/dL 30.5 - 36.0 g/dL [facility] MCV (RBC) [Entitic vol] 97.5 fL 80.0 - 100.0 fL [facility] Monocytes (Bld) [#/Vol] 0.42 10*3/uL <0.87 k/uL [facility] Monocytes/100 WBC (Bld) 8.5 % [facility] Neutrophils (Bld) [#/Vol] 2.65 10*3/uL 1.45 - 7.50 k/uL [facility] Neutrophils/100 WBC (Bld) 53.6 % [facility] Nucleated RBC (Bld) [#/Vol] 10*3/uL <0.01 k/uL [facility] Nucleated RBC/100 WBC (Bld) [Ratio] 0.0 /100 WBC [facility] Platelet mean volume (Bld) [Entitic vol] 10.9 fL 9.0 - 12.7 fL [facility] Platelets (Bld) [#/Vol] 239 10*3/uL 150 - 400 k/uL [facility] RBC (Bld) [#/Vol] 4.06 10*6/uL 3.90 - 5.20 m/uL [facility] WBC (Bld) [#/Vol] 4.95 10*3/uL 3.70 - 11.00 k/uL [facility] Comprehensive metabolic 2000 panelon 12-12-2021 Albumin [Mass/Vol] 4.7 g/dL 3.9 - 4.9 g/dL [facility] ALP [Catalytic activity/Vol] 66 U/L 34 - 123 U/L [facility] ALT [Catalytic activity/Vol] 19 U/L 7 - 38 U/L [facility] Anion gap [Moles/Vol] 12 mmol/L 9 - 18 mmol/L [facility] AST [Catalytic activity/Vol] 30 U/L 13 - 35 U/L [facility] Bilirubin [Mass/Vol] 0.4 mg/dL 0.2 - 1 .3 mg/dL [facility] Calcium [Mass/Vol] 9.8 mg/dL 8.5 - 10. 2 mg/dL [facility] Chloride [Moles/Vol] 102 mmol/L 97 - 10 5 mmol/L [facility] CO2 [Moles/Vol] 26 mmol/L 22 - 30 mmol/L [facility] Creatinine [Mass/Vol] 0.65 mg/dL 0.58 - 0.96 mg/dL [facility] Estimated Glomerular Filtration Rate 88 mL/min/1.73m >=60 mL/min/1.7 3m [facility] Glucose [Mass/Vol] 102 mg/dL High 74 - 99 mg/dL [facility] Potassium [Moles/Vol] 4.8 mmol/L 3.7 - 5.1 mmol/L [facility] Protein [Mass/Vol] 7.8 g/dL 6.3 - 8.0 g/dL [facility] Sodium [Moles/Vol] 140 mmol/L 136 - 144 mmol/L [facility] Urea nitrogen [Mass/Vol] 13 mg/dL 7 - 21 mg/dL [facility] LIPID PANEL, NONFASTINGon Cholesterol [Mass/Vol] 239 mg/dL High <200 mg/dL [facility] HDL Cholesterol, Nonfasting 52 mg/dL >39 mg/dL [facility] LDL Cholesterol, Nonfasting 140 mg/dL High <100 mg/dL [facility] LDL/HDL Ratio, Nonfasting 2.69 mg/dL High <2.54 mg/dL [facility] Non HDL Cholesterol, Nonfasting 187 mg/dL High <130 mg/dL [facility] Total Chol/HDL Ratio, Nonfasting 4.60 mg/dL <5.10 mg/dL [facility] Triglycerides, Nonfasting 233 mg/dL High <150 mg/dL [facility] VLDL Cholesterol, Nonfasting 47 mg/dL High <30 mg/dL [facility] TSH BLDon 12-12-2021 TSH Qn 2.980 m[IU]/L 0.270 - 4.200 mIU/L [facility] Vital Signs Date Time Vital Sign Value Performing Clinician Facility 02-14-2024 14:31-0400 Blood Pressure Cuff Size ANNELIESE [facility] 02-14-2024 14:31-0400 Blood Pressure Location ANNELIESE [facility] 02-14-2024 14:31-0400 Blood Pressure Method ANNELIESE [facility] 02-14-2024 14:31-0400 Body temperature 98.24 [degF] ANNELIESE [facility] 02-14-2024 14:31-0400 Diastolic Blood Pressure Non-Invasive 55 mm[Hg] ANNELIESE [facility] 02-14-2024 14:31-0400 Heart rate 83 /min ANNELIESE [facility] 02-14-2024 14:31-0400 Reason For Taking VItal Signs ANNELIESE [facility] 07-08-2024 14:31-0400 Respiratory rate 20 /min ANNELIESE SAHNIUNK DO [facility] 02-14-2024 14:31-0400 Systolic Blood Pressure Non-Invasive 120 mm[Hg] ANNELIESE PLUNK DO [facility] 02-14-2024 07:21-0400 Blood Pressure Cuff Size ANNELIESE CHAIREZ [facility] 02-14-2024 07:21-0400 Blood Pressure Location [facility]E [facility] 02-14-2024 07:21-0400 Blood Pressure Method [facility]E [facility] [address] [place] [address] 02-14-2024 07:21-0400 Body temperature 97.34 [degF] [facility] [address] [place] [address] 02-14-2024 07:21-0400 Diastolic Blood Pressure Non-Invasive 42 mm[Hg] [facility]E [facility] 02-14-2024 07:21-0400 Heart rate 64 /min [facility] [address] [place] [address] 02-14-2024 07:21-0400 Reason For Taking VItal Signs ANNELIESE CHAIREZ [employer] 02-14-2024 07:21-0400 Respiratory rate 20 /min [facility]E [facility] 02-14-2024 07:21-0400 Systolic Blood Pressure Non-Invasive 111 mm[Hg] [facility]E [facility] [employer] [address] [place] [address] 02-13-2024 21:27-0400 Body temperature 98.42 [degF] [facility]E [facility] [employer] [address] [place] [address] 02-13-2024 21:27-0400 Diastolic Blood Pressure Non-Invasive 47 mm[Hg] ANNELIESE PLUNK [facility] [address] [place] [address] 02-13-2024 21:27-0400 Heart rate 74 /min [facility] 02-13-2024 21:27-0400 Reason For Taking VItal Signs ANNELIESE PLUNK DO [address] [place] [address] 02-13-2024 21:27-0400 Respiratory rate 20 /min ANNELIESE PLUNK DO [address] [place] [address] 02-13-2024 21:27-0400 Systolic Blood Pressure Non-Invasive 120 mm[Hg] ANNELIESE PLUNK DO [address] [place] [address] 02-13-2024 14:50-0400 Blood Pressure Cuff Size ANNELIESE PLUNK DO [address] [place] [address] 02-13-2024 14:50-0400 Blood Pressure Location ANNELIESE PLUNK DO [address] [place] [address] 02-13-2024 14:50-0400 Blood Pressure Method ANNELIESE PLUNK DO [address] [place] [address] 02-08-2024 22:20-0400 Heart rate 82 /min ANNELIESE PLUNK DO [address] [place] [address] 02-07-2024 22:08-0400 Heart rate 70 /min ANNELIESE PLUNK DO [address] [place] [address] 02-07-2024 14:57-0400 Heart rate 70 /min ANNELIESE PLUNK DO [address] 02-05-2024 07:36-0400 Heart rate 65 /min ANNELIESE PLUNK DO [address] [place] [address] 02-05-2024 02:51-0400 Body height 152.4 cm ANNELIESE PLUNK DO [address] [place] [address] 02-05-2024 02:51-0400 Body weight 76.8 kg ANNELIESE PLUNK DO [address] [place] [address] 02-05-2024 02:51-0400 Body weight 33.07 kg/m2 ANNELIESE PLUNK DO [address] [place] [address] 02-05-2024 02:10-0400 Body height 152.4 cm ANNELIESE PLUNK DO [address] [place] [address] 02-05-2024 02:10-0400 Body weight 76.8 kg ANNELIESE PLUNK DO [facility] 02-05-2024 02:10-0400 Body weight 33.07 kg/m2 ANNELIESE PLUNK DO [facility] 02-05-2024 01:51-0400 Heart rate 66 /min ANNELIESE PLUNK DO [facility] 02-05-2024 01:51-0400 Mean blood pressure 79 mm[Hg] ANNELIESE PLUNK DO [address] [place] [address] 02-04-2024 23:33-0400 Body temperature 98.42 [degF] STEFANOCOLTON BUTTELGIN AUTO RADIO MECHANIC-RESEARCH EPIDEMIOLOGIST [facility] 02-04-2024 23:33-0400 Diastolic Blood Pressure Non-Invasive 54 mm[Hg] STEFANO FILOMENAELGIN AUTO [employer] MECHANIC-RESEARCH EPIDEMIOLOGIST [facility] 02-04-2024 23:33-0400 Heart rate 63 /min STEFANO BUTTELGIN AUTO [employer] MECHANIC-RESEARCH EPIDEMIOLOGIST [facility] 02-04-2024 23:33-0400 Respiratory rate 16 /min STEFANOCOLTON BUTTELGIN AUTO [employer] MECHANIC-RESEARCH EPIDEMIOLOGIST [facility] 02-04-2024 23:33-0400 Systolic Blood Pressure Non-Invasive 121 mm[Hg] STEFANO FILOMENALEGIN AUTO [employer] MECHANIC-RESEARCH EPIDEMIOLOGIST [facility] 02-04-2024 20:11-0400 Body temperature 98.24 [degF] STEFANO FILOMENAELGIN AUTO [employer]IO MECHANIC-RESEARCH EPIDEMIOLOGIST [facility] 02-04-2024 20:11-0400 Diastolic Blood Pressure Non-Invasive 67 mm[Hg] STEFANO FILOMENAELGIN AUTO [employer] MECHANIC-RESEARCH EPIDEMIOLOGIST [facility] 02-04-2024 20:11-0400 Heart rate 77 /min STEFANO GRAHAM AUTO [employer] MECHANIC-RESEARCH EPIDEMIOLOGIST [facility] 02-04-2024 20:11-0400 Respiratory rate 16 /min STEFANO GRAHAM AUTO [employer]IO MECHANIC-RESEARCH EPIDEMIOLOGIST [facility] 02-04-2024 20:11-0400 Systolic Blood Pressure Non-Invasive 94 mm[Hg] STEFANO CHRISDayne AUTO [employer] MECHANIC-RESEARCH EPIDEMIOLOGIST [facility] 02-04-2024 15:40-0400 Body temperature 98.06 [degF] STEFANO CHRISDayne AUTO [employer] MECHANIC-RESEARCH EPIDEMIOLOGIST [facility] 02-04-2024 15:40-0400 Diastolic Blood Pressure Non-Invasive 61 mm[Hg] STEFANO CHRISDayne AUTO RADIO MECHANIC-RESEARCH EPIDEMIOLOGIST [facility] 02-04-2024 15:40-0400 Heart rate 88 /min STEFANO CHRISDayne AUTO [employer]IO MECHANIC-RESEARCH EPIDEMIOLOGIST [facility] 02-04-2024 15:40-0400 Respiratory rate 16 /min STEFANO GRAHAM AUTO [employer]IO MECHANIC-RESEARCH EPIDEMIOLOGIST [facility] 02-04-2024 15:40-0400 Systolic Blood Pressure Non-Invasive 127 mm[Hg] STEFANO CHRISDayne AUTO RADIO MECHANIC-RESEARCH EPIDEMIOLOGIST [facility] 02-04-2024 09:24-0400 Blood Pressure Cuff Size STEFANO CHRISDayne AUTO [employer]IO MECHANIC-RESEARCH EPIDEMIOLOGIST [facility] 02-04-2024 09:24-0400 Blood Pressure Location STEFANO CHRISDayne AUTO [employer]IO MECHANIC-RESEARCH EPIDEMIOLOGIST [facility] 02-04-2024 09:24-0400 Blood Pressure Method STEFANO BUTTELGIN AUTO RADIO MECHANIC-RESEARCH EPIDEMIOLOGIST [facility] 02-04-2024 07:45-0400 Blood Pressure Cuff Size STEFANOCOLTON BUTTNEN AUTO RADIO MECHANIC-RESEARCH EPIDEMIOLOGIST [facility] 02-04-2024 07:45-0400 Blood Pressure Location STEFANOCOLTON CHRISN AUTO RADIO MECHANIC-RESEARCH EPIDEMIOLOGIST [facility] 02-04-2024 07:45-0400 Blood Pressure Method STEFANOCOLTON BUTTNEN AUTO RADIO MECHANIC-RESEARCH EPIDEMIOLOGIST [facility] 02-03-2024 03:15-0400 Heart rate 66 /min STEFANOCOLTON BUTTNEN AUTO RADIO MECHANIC-RESEARCH EPIDEMIOLOGIST [facility] 02-02-2024 23:09-0400 Heart rate 65 /min STEFANO FILOMENANEN AUTO RADIO MECHANIC-RESEARCH EPIDEMIOLOGIST [facility] 02-02-2024 18:45-0400 Heart rate 82 /min STEFANOCOLTON BUTTNEN AUTO RADIO MECHANIC-RESEARCH EPIDEMIOLOGIST [facility] 02-01-2024 12:41-0400 Body height 152.4 cm STEFANOCOLTON BUTTNEN AUTO RADIO MECHANIC-RESEARCH EPIDEMIOLOGIST [facility] 02-01-2024 12:41-0400 Body weight 76.2 kg STEFANOCOLTON BUTTNEN AUTO RADIO MECHANIC-RESEARCH EPIDEMIOLOGIST [facility] 02-01-2024 12:41-0400 Body weight 32.81 kg/m2 STEFANOCOLTON BUTTNEN AUTO RADIO MECHANIC-RESEARCH EPIDEMIOLOGIST [facility] 02-01-2024 12:23-0400 Body height 152.4 cm STEFANOCOLTON BUTTNEN AUTO RADIO MECHANIC-RESEARCH EPIDEMIOLOGIST [facility] 02-01-2024 12:23-0400 Body weight 76.2 kg STEFANOCOLTON BUTTNEN AUTO RADIO MECHANIC-RESEARCH EPIDEMIOLOGIST [facility] 02-01-2024 12:23-0400 Body weight 32.81 kg/m2 STEFANO GRAHAM AUTO RADIO MECHANIC-RESEARCH EPIDEMIOLOGIST [facility] 02-01-2024 07:01-0400 Body temperature 97.7 [degF] USMAN CHILDS MD FACP [facility] 02-01-2024 07:01-0400 Diastolic Blood Pressure Non-Invasive 60 mm[Hg] USMAN CHILDS MD FACP [facility] 02-01-2024 07:01-0400 Heart rate 82 /min USMAN CHILDS MD FACP [facility] 02-01-2024 07:01-0400 Respiratory rate 20 /min USMAN CHILDS MD FACP [facility] 02-01-2024 07:01-0400 Systolic Blood Pressure Non-Invasive 117 mm[Hg] USMAN CHILDS MD FACP [facility] 01-31-2024 20:07-0400 Body temperature 97.88 [degF] USMAN CHILDS MD FACP [facility] 01-31-2024 20:07-0400 Diastolic Blood Pressure Non-Invasive 61 mm[Hg] USMAN CHILDS MD FACP [facility] 01-31-2024 20:07-0400 Heart rate 85 /min USMAN CHILDS MD FACP [facility] 01-31-2024 20:07-0400 Respiratory rate 20 /min USMAN CHILDS MD FACP [facility] 01-31-2024 20:07-0400 Systolic Blood Pressure Non-Invasive 103 mm[Hg] USMAN CHILDS MD FACP [facility] 01-31-2024 11:05-0400 Heart rate 85 /min USMAN CHILDS MD FACP [facility] 01-31-2024 08:30-0400 Body temperature 98.6 [degF] USMAN CHILDS MD FACP [facility] 01-31-2024 07:29-0400 Diastolic Blood Pressure Non-Invasive 51 mm[Hg] USMAN CHILDS MD FACP [facility] 01-31-2024 07:29-0400 Respiratory rate 20 /min USMAN CHILDS MD FACP [facility] 01-31-2024 07:29-0400 Systolic Blood Pressure Non-Invasive 111 mm[Hg] USMAN CHILDS MD FACP [facility] 01-30-2024 07:54-0400 Heart rate 98 /min USMAN CHILDS MD FACP [facility] 01-29-2024 19:38-0400 Reason For Taking VItal Signs USMAN CHILDS MD FACP [facility] 01-29-2024 13:15-0400 Heart rate 94 /min USMAN CHILDS MD FACP [facility] 01-29-2024 09:19-0400 Heart rate 67 /min USMAN CHILDS MD FACP [facility] 01-28-2024 19:14-0400 Reason For Taking VItal Signs USMAN CHILDS MD FACP [facility] 01-27-2024 19:35-0400 Heart rate 78 /min USMAN CHILDS MD FACP [facility] 01-26-2024 20:05-0400 Heart rate 84 /min USMAN CHILDS MD FACP [facility] 01-25-2024 19:58-0400 Heart rate 78 /min USMAN CHILDS MD FACP [facility] 01-22-2024 17:48-0400 Body height 152.4 cm USMAN CHILDS MD FACP [facility] 01-22-2024 17:48-0400 Body weight 76.2 kg USMAN CHILDS MD FACP [facility] 01-22-2024 17:48-0400 Body weight 32.81 kg/m2 USMAN CHILDS MD FACP [facility] 12-13-2023 12:48-0400 Body mass index (BMI) [Ratio] 33.45 kg/m2 Ester Suppan AUTO [employer] MECH[employer]IC.[employer]ING [employer]W SUPERVISOR Work Phone: [facility] 12-13-2023 12:48-0400 Body weight 78.29 kg Ester Suppan AUTO [employer]IO MECHANIC.PICKING CREW SUPERVISOR Work Phone: [facility] 12-13-2023 12:48-0400 Diastolic blood pressure 66 mm[Hg] Ester Suppan AUTO [employer]IO MECHANIC.PICKING CREW SUPERVISOR Work Phone: [facility] 12-13-2023 12:48-0400 Heart rate 60 /min Ester Suppan AUTO [employer]IO MECHANIC.PICKING CREW SUPERVISOR Work Phone: [facility] 12-13-2023 12:48-0400 Respiratory rate 20 /min Ester Suppan AUTO [employer]IO MECHANIC.PICKING CREW SUPERVISOR Work Phone: [facility] 12-13-2023 12:48-0400 SaO2% (BldA) [Mass fraction] 98 % Ester Suppan AUTO [employer]IO MECHANIC.P[employer]ING [employer]W SUPERVISOR Work Phone: [facility] 12-13-2023 12:48-0400 Systolic blood pressure 100 mm[Hg] Ester Suppan REBECCA.PICKING CREW SUPERVISOR Work Phone: [facility] 12-11-2023 07:56-0400 Diastolic Blood Pressure Non-Invasive 64 mm[Hg] USMAN CHILDS MD FACP [facility] 12-11-2023 07:56-0400 Systolic Blood Pressure Non-Invasive 120 mm[Hg] USMAN CHILDS MD FACP [facility] 12-11-2023 06:47-0400 Body temperature 97.88 [degF] USMAN CHILDS MD FACP [facility] 12-11-2023 06:47-0400 Diastolic Blood Pressure Non-Invasive 60 mm[Hg] USMAN CHILDS MD FACP [facility] 12-11-2023 06:47-0400 Heart rate 87 /min USMAN CHILDS MD FACP [facility] 12-11-2023 06:47-0400 Reason For Taking VItal Signs USMAN CHILDS MD FACP [facility] 12-11-2023 06:47-0400 Respiratory rate 18 /min USMAN CHILDS MD FACP [facility] 12-11-2023 06:47-0400 Systolic Blood Pressure Non-Invasive 117 mm[Hg] USMAN CHILDS MD FACP [facility] 12-10-2023 19:44-0400 Body temperature 97.7 [degF] USMAN CHILDS MD FACP [facility] 12-10-2023 19:44-0400 Diastolic Blood Pressure Non-Invasive 57 mm[Hg] USMAN CHILDS MD FACP [facility] 12-10-2023 19:44-0400 Heart rate 85 /min USMAN CHILDS MD FACP [facility] 12-10-2023 19:44-0400 Reason For Taking VItal Signs USMAN CHILDS MD FACP [facility] 12-10-2023 19:44-0400 Respiratory rate 18 /min USMAN CHILDS MD FACP [facility] 12-10-2023 19:44-0400 Systolic Blood Pressure Non-Invasive 110 mm[Hg] USMAN CHILDS MD FACP [facility] 12-10-2023 06:10-0400 Body temperature 97.7 [degF] USMAN CHILDS MD FACP [facility] 12-10-2023 06:10-0400 Heart rate 84 /min USMAN CHILDS MD FACP [facility] 12-10-2023 06:10-0400 Reason For Taking VItal Signs USMAN CHILDS MD FACP [facility] 12-10-2023 06:10-0400 Respiratory rate 18 /min USMAN CHILDS MD FACP [facility] 12-09-2023 20:06-0400 Heart rate 84 /min USMAN CHILDS MD FACP [facility] 12-07-2023 19:37-0400 Heart rate 78 /min USMAN CHILDS MD FACP [facility] 12-06-2023 19:42-0400 Heart rate 84 /min USMAN CHILDS MD FACP [facility] 12-06-2023 11:25-0400 Body weight 79.09 kg USMAN CHILDS MD FACP [facility] 12-06-2023 07:00-0400 Heart rate 83 /min USMAN CHILDS MD FACP [facility] 12-04-2023 20:19-0400 Heart rate 92 /min USMAN CHILDS MD FACP [facility] 11-30-2023 06:24-0400 Body weight 80.6 kg USMAN CHILDS MD FACP [facility] 11-26-2023 21:19-0400 Body height 152.4 cm USMAN CHILDS MD FACP [facility] 11-26-2023 21:19-0400 Body weight 80.6 kg USMAN CHILDS MD FACP [facility] 11-26-2023 21:19-0400 Body weight 34.7 kg/m2 USMAN CHILDS MD FACP [facility] 11-26-2023 20:37-0400 Body temperature 98.8 [degF] Dr. Carl Encarnacion Work Phone: [facility] 11-26-2023 20:37-0400 Diastolic blood pressure 72 mm[Hg] Dr. Carl Encarnacion Work Phone: [facility] 11-26-2023 20:37-0400 Heart rate 115 /min Dr. Carl Encarnacion Work Phone: [facility] 11-26-2023 20:37-0400 Respiratory rate 18 /min Dr. Carl Encarnacion Work Phone: [facility] 11-26-2023 20:37-0400 SaO2% (BldA) [Mass fraction] 97 % Dr. Carl Encarnacion Work Phone: [facility] 11-26-2023 20:37-0400 Systolic blood pressure 139 mm[Hg] Dr. Carl Encarnacion Work Phone: [facility] 11-23-2023 12:51-0400 Body height 152.[address] Carl Encarnacion Work Phone: [facility] 11-23-2023 12:51-0400 Body mass index (BMI) [Ratio] 34.3 kg/m2 Dr. Carl Encarnacion Work Phone: [facility] 11-23-2023 12:51-0400 Body weight 79.[address] Carl Encarnacion Work Phone: [facility] 11-23-2023 11:58-0400 Diastolic blood pressure 102 mm[Hg] [facility] 11-23-2023 11:58-0400 Heart rate 96 /min [facility] 11-23-2023 11:58-0400 Respiratory rate 20 /min [facility] 11-23-2023 11:58-0400 SaO2% (BldA) [Mass fraction] 95 % [facility] 11-23-2023 11:58-0400 Systolic blood pressure 120 mm[Hg] [facility] 11-23-2023 11:49-0400 Body temperature 98 [degF] [facility] 11-23-2023 08:07-0400 Body height 152.4 cm [facility] 11-23-2023 08:07-0400 Body mass index (BMI) [Ratio] 36.3 kg/m2 [facility] 11-23-2023 08:07-0400 Body weight 84.3 kg [facility] 07-26-2023 11:33-0500 Body temperature 98.1 [degF] Prosper Amador Work Phone: [facility] 07-26-2023 11:33-0500 Body weight 73.94 kg Prosper Amador Work Phone: [facility] 07-26-2023 11:33-0500 Diastolic blood pressure 69 mm[Hg] Prosper Amador Work Phone: [facility] 07-26-2023 11:33-0500 Heart rate 106 /min Prosper Amador Work Phone: [facility] 07-26-2023 11:33-0500 SaO2% (BldA) [Mass fraction] 98 % Prosper Amador Work Phone: [facility] 07-26-2023 11:33-0500 Systolic blood pressure 142 mm[Hg] Prosper Amador Work Phone: [facility] 07-07-2023 08:34-0500 Body height 153 cm Wilmar Masci DO Work Phone: [facility] 07-07-2023 08:34-0500 Body temperature 98.8 [degF] Wilmar Masci DO Work Phone: [facility] 07-07-2023 08:34-0500 Body weight 75.3 kg Wilmar Masci DO Work Phone: [facility] 07-07-2023 08:34-0500 Diastolic blood pressure 84 mm[Hg] Wilmar Masci DO Work Phone: [facility] 07-07-2023 08:34-0500 Heart rate 92 /min Wilmar Masci DO Work Phone: [facility] 07-07-2023 08:34-0500 SaO2% (BldA) [Mass fraction] 98 % Wilmar Masci DO Work Phone: [facility] 07-07-2023 08:34-0500 Systolic blood pressure 150 mm[Hg] Wilmar Masci DO Work Phone: [facility] 06-02-2023 13:59-0400 Body temperature 97.9 [degF] Wilmar Masci DO Work Phone: [facility] 06-02-2023 13:59-0400 Body weight 73.48 kg Wilmar Masci DO Work Phone: [facility] 06-02-2023 13:59-0400 Diastolic blood pressure 71 mm[Hg] Wilmar Masci DO Work Phone: [facility] 06-02-2023 13:59-0400 Heart rate 96 /min Wilmar Forbes DO Work Phone: [facility] 06-02-2023 13:59-0400 SaO2% (BldA) [Mass fraction] 97 % Wilmar Forbes DO Work Phone: [facility] 06-02-2023 13:59-0400 Systolic blood pressure 121 mm[Hg] Wilmar Forbes DO Work Phone: [facility] 05-03-2023 15:18-0400 Body temperature 97.5 [degF] Eliot Castillo MD Work Phone: [facility] 05-03-2023 15:18-0400 Body weight 72.94 kg Eliot Castillo MD Work Phone: [facility] 05-03-2023 15:18-0400 Diastolic blood pressure 66 mm[Hg] Eliot Castillo MD Work Phone: [facility] 05-03-2023 15:18-0400 Heart rate 93 /min Eliot Castillo MD Work Phone: [facility] 05-03-2023 15:18-0400 Systolic blood pressure 144 mm[Hg] Eliot Castillo MD Work Phone: [facility] 04-06-2023 14:45-0400 Body height 156 cm [facility] 04-06-2023 14:45-0400 Body weight 72.58 kg [facility] 01-27-2023 10:22-0400 Body temperature 98.29 [degF] Kristen SANTOS-C Work Phone: [facility] 01-27-2023 10:22-0400 Diastolic blood pressure 70 mm[Hg] Kristen SANTOS-C Work Phone: [facility] 01-27-2023 10:22-0400 Heart rate 110 /min Kristen SANTOS-C Work Phone: [facility] 01-27-2023 10:22-0400 Respiratory rate 16 /min Kristen SANTOS-C Work Phone: [facility] 01-27-2023 10:22-0400 Systolic blood pressure 110 mm[Hg] Kristen Eugene PA-C Work Phone: [facility] 01-12-2023 10:-0400 Body height 160.02 cm [facility] 01-12-2023 10:22-0400 Body mass index (BMI) [Ratio] 31.1 kg/m2 [facility] 01-12-2023 10:22-0400 Body temperature 97.6 [degF] [facility] 01-12-2023 10:-0400 Body weight 79.78 kg [facility] 01-12-2023 10:22-0400 Diastolic blood pressure 83 mm[Hg] [facility] 01-12-2023 10:22-0400 Heart rate 92 /min [facility] 01-12-2023 10:22-0400 Respiratory rate 16 /min [facility] 01-12-2023 10:22-0400 SaO2% (BldA) [Mass fraction] 100 % [facility] 01-12-2023 10:22-0400 Systolic blood pressure 146 mm[Hg] [facility] 07-19-2022 11:20-0500 Body temperature 98.01 [degF] Isabel Older AUTO RADIO MECHANIC.RESEARCH EPIDEMIOLOGIST Work Phone: [facility] 07-19-2022 11:20-0500 Body weight 75.75 kg Isabel Older AUTO RADIO MECHANIC.RESEARCH EPIDEMIOLOGIST Work Phone: [facility] 07-19-2022 11:20-0500 Diastolic blood pressure 82 mm[Hg] Isabel Older AUTO RADIO MECHANIC.RESEARCH EPIDEMIOLOGIST Work Phone: [facility] 07-19-2022 11:20-0500 Heart rate 118 /min Isabel Older AUTO RADIO MECHANIC.RESEARCH EPIDEMIOLOGIST Work Phone: [facility] 07-19-2022 11:20-0500 Respiratory rate 20 /min Isabel Older AUTO RADIO MECHANIC.RESEARCH EPIDEMIOLOGIST Work Phone: [facility] 07-19-2022 11:20-0500 SaO2% (BldA) [Mass fraction] 95 % Isabel Older AUTO RADIO MECHANIC.RESEARCH EPIDEMIOLOGIST Work Phone: [facility] 07-19-2022 11:20-0500 Systolic blood pressure 140 mm[Hg] Isabel Older AUTO RADIO MECHANIC.RESEARCH EPIDEMIOLOGIST Work Phone: [facility] 06-26-2022 11:08-0500 Diastolic blood pressure 72 mm[Hg] Carl Encarnacion MD Work Phone: [facility] 06-26-2022 11:08-0500 Systolic blood pressure 130 mm[Hg] aCrl Encarnacion MD Work Phone: [facility] 06-26-2022 10:45-0500 Body weight 76.66 kg Carl Encarnacion MD Work Phone: [facility] 06-26-2022 10:45-0500 Heart rate 90 /min Carl Encarnacion MD Work Phone: [facility] 06-26-2022 10:45-0500 Respiratory rate 20 /min Carl Encarnacion MD Work Phone: [facility] 12-12-2021 12:20-0400 Diastolic blood pressure 94 mm[Hg] Carl Encarnacion MD Work Phone: [facility] 12-12-2021 12:20-0400 Systolic blood pressure 182 mm[Hg] Carl Encarnacion MD Work Phone: [facility] 12-12-2021 11:56-0400 Body weight 75.3 kg Carl Encarnacion MD Work Phone: [facility] 12-12-2021 11:56-0400 Heart rate 82 /min Carl Encarnacion MD Work Phone: [facility] 12-12-2021 11:56-0400 Respiratory rate 16 /min Carl Encarnacion MD Work Phone: [facility] Encounters Encounter Date Encounter Type Care Provider Facility Start: 01-18-2025 ambulatory Lasha VASQUEZ Fa cility:[facility] Start: 12-11-2024 End: 12-11-2024 ambulatory Lasha VASQUEZ Facility:[facility] Start: 12-05-2024 End: 12-05-2024 ambulatory Savi Tavares [employer] Facility:[facility] Start: 12-04-2024 End: 12-05-2024 ambulatory Efewongbe Mairnae OLS Facility:[facility] Start: 11-22-2024 End: 11-22-2024 ambulatory Savi Tavares [employer] Facility:[facility] Start: 11-17-2024 End: 11-17-2024 ambulatory Savi Tavares [employer] Facility:[facility] Start: 11-07-2024 End: 11-07-2024 ambulatory Efannmarie Graye Facility:[facility] Start: 11-02-2024 End: 11-02-[address] Carl Encarnacion MD Work Phone: [facility] Work Phone: Start: 11-02-2024 End: 11-02-2024 Departed Referred Lasha Pro MD [facility] Start: 11-02-2024 [facility] Start: 11-02-2024 End: 11-02-2024 ambulatory Efannmarie Pro OLS Facility:[facility] Start: 10-30-2024 End: 10-30-[address] Carl Encarnacion MD Work Phone: [facility] Work Phone: Start: 10-30-2024 End: 10-30-2024 [facility] Start: 10-30-2024 [facility] Start: 10-30-2024 End: 10-30-2024 ambulatory Efcachorrorambophilip Graye OLS Facility:[facility] Start: 10-19-2024 End: 10-19-2024 ambulatory Jim SANTOS Facility:[facility] Start: 10-19-2024 End: 10-19-2024 Patient encounter procedure Jim SANTOS -[facility] Work Phone: Start: 10-16-2024 End: 10-16-[address] Carl Encarnacion MD Work Phone: [facility] Work Phone: Start: 10-16-2024 End: 10-16-2024 Departed Referred Lasha Pro MD [facility] Start: 10-16-2024 End: 10-16-2024 ambulatory Lasha Pro OLS Facility:[facility] Start: 09-27-2024 [facility] Start: 09-27-2024 End: 09-27-2024 ambulatory Savi Tavares NP Facility:[facility] Start: 09-27-2024 End: 09-27-2024 Patient encounter procedure Savi Tavares [employer]- -[facility] Work Phone: Start: 09-25-2024 ambulatory Lasha Pro OLS Fa cility:[facility] Start: 09-25-2024 [facility] Start: 09-18-2024 ambulatory Efannmarie Pro OLS Fa cility:[facility] Start: 09-18-2024 [facility] Start: 09-14-2024 ambulatory Lasha Pro OLS Fa cility:[facility] Start: 09-14-2024 [facility] Start: 09-12-2024 End: 09-12-2024 ambulatory Lasha Pro Facility:[facility] Start: 09-12-2024 End: 09-12-[address] Lasha Pro MD -[facility] Work Phone: Start: 09-03-2024 ambulatory Lasha VASQUEZ Fa cility:[facility] Start: 09-03-2024 [facility] Start: 08-15-[address] ZACKARY WALLER MD Facility[facility] Start: 08-11-2024 End: 08-11-2024 ambulatory Savi Tavares NP Facility:[facility] Start: 08-11-2024 End: 08-11-2024 Patient encounter procedure Savi Tavares [employer]-C -[facility] Work Phone: Start: 08-07-2024 ambulatory Efewongbe Oleghe OLS Fa cility:[facility] Start: 08-07-2024 Registered Referred Lasha Pro MD [facility] Start: 07-11-2024 End: 07-11-2024 ambulatory Efewongbe Oleghe Facility:[facility] Start: 06-22-2024 End: 06-22-2024 ambulatory Jim SANTOS Facility:[facility] Start: 06-19-2024 ambulatory Efewongbe Oleghe OLS Fa cility:[facility] Start: 05-22-2024 End: 05-22-2024 ambulatory Efewongbe Oleghe OLS Facility:[facility] Start: 05-16-2024 End: 05-16-2024 ambulatory Carl Encarnacion Facility:[facility] Start: 05-15-2024 ambulatory Efewongbe Oleghe OLS Fa cility:[facility] Start: 05-08-2024 ambulatory Efewongbe Oleghe OLS Fa cility:[facility] Start: 05-01-2024 End: 05-01-2024 ambulatory Efewongbe Oleghe OLS Facility:[facility] Start: 04-24-2024 ambulatory Efewongbe Oleghe OLS Fa cility:[facility] Start: 04-18-2024 End: 04-18-2024 ambulatory Savi Tavares NP Facility:[facility] Start: 04-17-2024 ambulatory Carl Alejandra Facility :[facility] Start: 04-11-2024 ambulatory Carl Alejandra Facility :[facility] Start: 04-03-2024 ambulatory Carl Alejandra Facility :[facility] Start: 03-27-2024 ambulatory Carl Alejandra Facility :[facility] Start: 03-20-2024 End: 03-20-2024 ambulatory Sujata Mejia Facility:[facility] Start: 03-20-2024 End: 03-20-2024 ambulatory Carl Encarnacion Facility:[facility] Start: 03-13-2024 ambulatory Efewongbe Oleghe OLS Fa cility:[facility] Start: 03-10-2024 End: 03-10-2024 ambulatory Savi Tavares NP Facility:[facility] Start: 03-06-2024 ambulatory Lasha Pro OLS Fa cility:[facility] Start: 02-28-2024 ambulatory Lasha Pro OLS Fa cility:[facility] Start: 02-23-2024 ambulatory Tenzinnorcophilip Pro OLS Fa cility:[facility] Start: 02-21-2024 End: 02-21-2024 ambulatory Carl Encarnacion Facility:[facility] Start: 02-15-2024 End: 02-15-2024 Refill Carl Encarnacion MD Work Phone: [facility] Comment on above: Refill Request Start: 02-05-2024 End: 02-14-2024 Evaluation and management of inpatient ANNELIESE CHAIREZ DO [facility] Start: 02-01-2024 End: 02-05-2024 Evaluation and management of inpatient STEFANO GRAHAM AUTO RADIO MECHANIC-RESEARCH EPIDEMIOLOGIST [facility] Start: 01-25-2024 ambulatory Carl cassidy MD Work Phone: [facility] [place] Start: 01-22-2024 End: 02-01-2024 Evaluation and management of inpatient USMAN CHILDS MD FAC [facility] Start: 01-20-2024 Chart abstracting Carl barragan MD Work Phone: [facility] [place] Comment on above: Outside Heart Cath Start: 01-13-2024 End: 01-13-2024 ambulatory CARL ENCARNACION Facility:[facility] Start: 01-11-2024 Telephone encounter Carl Encarnacion MD Work Phone: [facility] [place] Comment on above: Patient Update Start: 01-07-2024 Telephone encounter Ester Bejarano AUTO RADIO MECHANIC.PICKING CREW SUPERVISOR Work Phone: [facility] Comment on above: Medication Problem Start: 01-06-2024 Telephone encounter Ester Bejarano APRN.PICKING CREW SUPERVISOR Work Phone: [facility] Comment on above: Results OT Update Start: 01-04-2024 Refill Carl cassidy MD Work Phone: [facility] Comment on above: Refill Request Start: 12-25-2023 Home visit Carl cassidy MD Work Phone: [facility] Comment on above: Essential hypertensi on, malignant (Primary Dx) Start: 12-21-2023 Chart abstracting Carl barragan MD Work Phone: [facility] Comment on above: Ext / Discharge Summ edwina Start: 12-16-2023 Telephone encounter Ester Bejarano AUTO RADIO MECHANIC.PICKING CREW SUPERVISOR [facility] Start: 12-15-2023 Telephone encounter Carl Encarnacion MD Work Phone: [facility] [place] Start: 12-14-2023 Telephone encounter Carl Encarnacion MD Work Phone: [facility] Comment on above: Patient Update from [facility] Start: 12-14-2023 End: 12-14-2023 ambulatory CARL ENCARNACION Facility:[facility] Start: 12-13-2023 Telephone encounter Carl Encarnacion MD Work Phone: [facility] Comment on above: [facility] requeted Start: 12-13-2023 End: 12-13-2023 Office outpatient visit 15 minutes Ester Bejarano AUTO RADIO MECHANIC.PICKING CREW SUPERVISOR Work Phone: [facility] Comment on above: Recurrent UTI (urina ry tract infection) (Primary Dx); Essential hypertension; Malignant neoplasm of ovary, unspecified laterality (HCC); Aortic stenosis, moderate Start: 12-13-2023 End: 01-11-2024 ambulatory CARL ENCARNACION Facility:[facility] Start: 12-06-2023 Refill Carl cassidy MD Work Phone: [facility] Comment on above: Refill Request Start: 11-26-2023 End: 12-11-2023 Evaluation and management of inpatient USMAN CHILDS MD [facility] Start: 11-26-2023 Non-patient / Non-visit Dr. Deandre Encarnacion Work Phone: [facility] Work Phone: Start: 11-25-2023 Non-patient / Non-visit Dr. Deandre Encarnacion Work Phone: [facility] Work Phone: Start: 11-24-2023 Chart abstracting Keily Rico [facility] Comment on above: Hospital Admission Start: 11-24-2023 Non-patient / Non-visit Dr. Deandre Encarnacion Work Phone: [facility] Work Phone: Start: 11-23-2023 End: 11-26-2023 Evaluation and management of inpatient [facility] Work Phone: Start: 10-07-2023 Refill Carl cassidy MD Work Phone: [facility] Comment on above: Refill Request Start: 09-16-[address] ZACKARY WALLER MD Facility:[facility] Start: 09-09-2023 End: 09-09-[address] ZACKARY WALLER MD Facility:[facility] Start: 09-09-2023 End: 09-09-[address] ZACKARY WALLER MD [facility] Start: 08-18-2023 End: 08-18-2023 ambulatory CARL ENCARNACION Facility:[facility] Start: 07-26-2023 End: 07-26-2023 Patient encounter procedure Prosper Amador Work Phone: [facility] Start: 07-26-2023 End: 07-26-2023 ambulatory Prosper Amador Work Phone: Hematology/Oncology Comment on above: 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) Start: 07-16-2023 Telephone encounter Wilmar perales DO Work Phone: Hematology/Oncology Start: 07-14-2023 End: 07-14-2023 ambulatory CARL ENCARNACION Facility:[facility] Start: 07-13-2023 Orders Only Wilmar Davies Work Phone: Hematology/Oncology Comment on above: 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) Start: 07-12-2023 Telephone encounter Carl Encarnacion MD Work Phone: [facility] Comment on above: Medication Problem Start: 07-07-2023 End: 07-07-2023 Patient encounter procedure Wilmar Forbes DO Work Phone: [facility] Start: 07-07-2023 End: 07-07-2023 ambulatory Wilmar Forbes DO Work Phone: Hematology/Oncology Comment on above: 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) Start: 06-17-2023 Telephone encounter Korin Eduardo matology/Oncology Comment on above: Sample Case Porter - O ther (Toxicity Check (Carboplatin)) Start: 06-11-2023 Telephone encounter Korin Eduardo matology/Oncology Comment on above: Sample Case Porter - O ther (C1D1 Post Treatment Call (Carboplatin) ) Medication Problem Start: 06-10-2023 End: 06-10-2023 ambulatory CARL ENCARNACION Facility:[facility] Start: 06-07-2023 Refill Carl cassidy MD Work Phone: [facility] Comment on above: Refill Request Sample Case Porter - O ther (Orders ) Start: 06-04-2023 End: 06-04-2023 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 products 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 [facility] Work Phone: Hematology/Oncology Comment on above: Encounter for educat ion (Primary Dx) Start: 06-02-2023 End: 06-02-2023 ambulatory Wilmar Forbes DO Work Phone: Hematology/Oncology Comment on above: Ovarian cancer on ri ght (HCC) (Primary Dx) Start: 06-02-2023 End: 06-02-2023 Patient encounter procedure Wilmar Forbes DO Work Phone: [facility] Start: 06-02-2023 Telephone encounter Korin Mantilla RN He matology/Oncology Comment on above: Sample Case Porter - O ther (Introduction ) AVS 06/02/23, CHEMO START Start: 05-31-2023 Home visit Carl cassidy MD Work Phone: [facility] [place] Comment on above: 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 (Primary Dx) Start: 05-17-2023 End: 05-17-2023 ambulatory CARL ENCARNACION Facility:[facility] Start: 05-13-2023 Telephone encounter Carl Encarnacion MD Work Phone: [facility] [place] Comment on above: Nursing Plan of Care Start: 05-03-2023 End: 05-03-2023 ambulatory Eliot Castillo MD Work Phone: Gynecology Comment on above: Ovarian cancer on ri ght (HCC) (Primary Dx); Post-operative state Start: 05-03-2023 End: 05-03-2023 Patient encounter procedure Eliot Castillo MD Work Phone: [facility] Start: 05-03-2023 End: 05-03-2023 ambulatory CARL ENCARNACION Facility:[facility] Start: 05-01-2023 Refill Annmarie fair APRN.RESEARCH EPIDEMIOLOGIST Work Phone: [facility] [place] Comment on above: Refill Request Start: 04-09-2023 Telephone encounter Annmarie garcia APRN.RESEARCH EPIDEMIOLOGIST Work Phone: [facility] [place] Comment on above: home health calling Start: 04-07-2023 Encounter for other preprocedural examination ELIOT CASTILLO [facility] Start: 04-07-2023 End: 04-14-2023 Evaluation and management of inpatient ELIOT CASTILLO Facility:[facility] Start: 04-06-2023 End: 04-06-2023 Admission to establishment Pacc Main [facility] Start: 04-06-2023 Encounter for other preprocedural examination ELIOT CASTILLO [facility] Start: 04-06-2023 End: 04-06-2023 ambulatory Ousmane Jones APRN.ROGE CLEMONS Work Phone: Pre Anesthesia Comment on above: preop instructions Pre-op evaluation (P rimary Dx); Acquired hypothyroidism; Essential hypertension; Gastroesophageal reflux disease without esophagitis; History of pulmonary embolism; Aortic stenosis, moderate Start: 04-06-2023 E-mail encounter fro m caregiver Ousmane Jones APRN.ROGE CLEMONS Work Phone: [facility] Start: 04-06-2023 End: 04-06-2023 Preprocedural examination done Ousmane Jones APRN.ROGE CLEMONS Work Phone: [facility] Work Phone: Start: 04-06-2023 Telephone encounter Ousmane stone APRN.ROGE CLEMONS Work Phone: Pre Anesthesia Start: 03-24-2023 Telephone encounter Dari moreno MD Work Phone: [facility] Cardiology [place] Comment on above: Appointment Patient Update Start: 03-23-2023 End: 03-23-2023 ambulatory CARL ENCARNACION Facility:[facility] Start: 03-22-2023 End: 03-22-2023 Preprocedural examination done Annmarie Mendoza APRN.RESEARCH EPIDEMIOLOGIST Work Phone: [facility] Work Phone: Start: 03-22-2023 Telephone encounter Tuyet Lorenz RN Gy necology Comment on above: Pre op instructions Results Start: 03-22-2023 End: 03-22-2023 Subsequent hospital visit by physician Manju [facility] Radiology Comment on above: Ovarian mass [N83.8] Start: 03-16-2023 Telephone encounter Ely oshea MD Work Phone: OB/Gynecology Comment on above: Referral Information Start: 03-09-2023 End: 03-09-2023 ambulatory CARL ENCARNACION Facility:[facility] Start: 03-09-2023 End: 03-09-2023 ambulatory CARL ENCARNACION Facility:[facility] Start: 03-09-2023 End: 03-09-2023 Subsequent hospital visit by physician Mari [facility] (I-Stat) Work Phone: Cat Scan Comment on above: Pelvic mass [R19.00] Start: 03-02-2023 End: 03-02-2023 ambulatory [facility] Work Phone: Start: 03-02-2023 End: 03-02-2023 Patient encounter procedure [facility]-Laboratory, Specimen Work Phone: Start: 02-08-2023 Refill Carl cassidy MD Work Phone: [facility] Comment on above: Refill Request Start: 02-02-2023 End: 02-02-2023 ambulatory America Camejo PT [facility] Physical Therapy Comment on above: Sciatica, right side (Primary Dx); Falls, subsequent encounter Start: 02-02-2023 Telephone encounter Kristen brewer PA-C Work Phone: [facility] Comment on above: Results Start: 01-27-2023 End: 01-27-2023 Subsequent hospital visit by physician Manju [facility] Work Phone: Radiology Comment on above: Sciatica, right side [M54.31] Start: 01-27-2023 End: 01-27-2023 ambulatory CARL ENCARNACION Facility:[facility] Start: 01-27-2023 End: 01-27-2023 Patient encounter procedure Kristne Eugene PA-C Work Phone: [facility] Comment on above: Sciatica, right side (Primary Dx); Fall, subsequent encounter Start: 01-25-2023 Telephone encounter Kristen brewer PA-C Work Phone: [facility] Comment on above: Results Start: 01-21-2023 Telephone encounter Carl Encarnacion MD Work Phone: [facility] Comment on above: Results Start: 01-12-2023 End: 01-12-2023 Emergency department patient visit [facility]gency [facility] Start: 01-12-2023 End: 01-12-2023 Patient encounter procedure Barrera Daley APRN.RESEARCH EPIDEMIOLOGIST Work Phone: [facility] Comment on above: Severe back pain (Pr imary Dx); Fall, initial encounter Start: 11-06-2022 Refill Carl cassidy MD Work Phone: [facility] Comment on above: Refill Request Start: 09-10-2022 Refill Carl cassidy MD Work Phone: [facility] Comment on above: Refill Request Start: 07-20-2022 Telephone encounter Barrera greene APRN.RESEARCH EPIDEMIOLOGIST Work Phone: [facility] Comment on above: Results Start: 07-20-2022 End: 07-20-2022 Subsequent hospital visit by physician Xr [facility] Work Phone: Radiology Comment on above: Acute cough [R05.1] Start: 07-19-2022 End: 07-19-2022 Patient encounter procedure Isabel Roca APRN.RESEARCH EPIDEMIOLOGIST Work Phone: [facility] Comment on above: Acute cough (Primary Dx); Wheezing Start: 06-29-2022 Telephone encounter Carl Encarnacion MD Work Phone: [facility] Comment on above: Results Start: 06-26-2022 End: 06-26-2022 Patient encounter procedure Carl Encarnacion MD Work Phone: [facility] Comment on above: Essential hypertensi on (Primary Dx); Mixed hyperlipidemia; Gastroesophageal reflux disease without esophagitis; Acquired hypothyroidism; Aortic stenosis, moderate; Osteoarthritis of multiple joints, unspecified osteoarthritis type; Encounter for immunization; Advance directive discussed with patient Start: 06-10-2022 Refill Carl cassidy MD Work Phone: [address] [place] [address] Comment on above: Refill Request Start: 06-05-2022 Refill Carl cassidy MD Work Phone: [facility] [place] Comment on above: Refill Request Start: 05-25-2022 Telephone encounter Carl Encarnacion MD Work Phone: [facility] [place] Comment on above: patient refused test ing Start: 05-13-2022 Telephone encounter Carl Encarnacion MD Work Phone: [facility] [place] Comment on above: Orders Start: 05-01-2022 Telephone encounter Carl Encarnacion MD Work Phone: [facility] [place] Comment on above: returning oxygen (Re turning oxygen to [employer]) Start: 03-16-2022 Telephone encounter Carl Encarnacion MD Work Phone: [facility] [place] Comment on above: Patient Question Start: 03-13-2022 Refill Carl cassidy MD Work Phone: [facility] [place] Comment on above: Prescription Refills Start: 12-15-2021 Telephone encounter Carl Encarnacion MD Work Phone: [facility] [place] Comment on above: Results Start: 12-12-2021 End: 12-12-2021 Patient encounter procedure Carl Encarnacion MD Work Phone: [facility] [place] Comment on above: Essential hypertensi on (Primary Dx); Mixed hyperlipidemia; Acquired hypothyroidism; History of pulmonary embolism; Gastroesophageal reflux disease without esophagitis; Osteoarthritis of multiple joints, unspecified osteoarthritis type; Medication management Start: 11-28-2021 Refill Carl cassidy MD Work Phone: [facility] [place] Comment on above: Refill Request Start: 11-17-2021 Telephone encounter Carl Encarnacion MD Work Phone: [facility] [place] Comment on above: urine culture Start: 11-12-2021 Telephone encounter Carl Encarnacion MD Work Phone: [facility] Pauline Comment on above: Results Start: 08-07-2021 Patient encounter procedure Carl Encarnacion MD Work Phone: [facility] Work Phone: Start: 06-19-2021 Patient encounter status [facility] Start: 02-05-2021 Patient encounter status Tenisha Encarnacion MD Work Phone: [facility] Work Phone: Procedures Date Procedure Procedure Detail Performing Clinician Start: 09-27-[address] Tenisha Encarnacion MD Work Phone: Start: 09-25-[address] Tenisha Encarnacion MD Work Phone: Start: 09-14-[address] Tenisha Encarnacion MD Work Phone: Start: 09-03-[address] Tenisha Encarnacion MD Work Phone: Start: 01-21-2024 Cardiac catheterization USMAN CHILDS MD [facility] Start: 11-23-[address] Tenisha Encarnacion Work Phone: Start: 11-23-2023 Plain chest X-ray Start: 09-09-2023 Echocardiography USMAN CHILDS MD [facility] Comment on above: Summary: 1. Left ventricle: [...] w/le ast 12 lds i&r only Annmarie Mendoza AUTO RADIO MECHANIC.RESEARCH EPIDEMIOLOGIST Work Phone: Start: 03-09-2023 Ct abdomen & pelvis w/contrast material Carl Encarnacion MD Work Phone: Start: 01-27-2023 Radex spine lumbosac ral 2/3 views Kristen Eugene PA-C Work Phone: Start: 01-12-2023 X-ray of lumbar spin e, two or three views Start: 07-20-2022 Radiologic exam ches t 2 views Isabel Jansen AUTO RADIO MECHANIC.RESEARCH EPIDEMIOLOGIST Work Phone: Start: 06-26-2022 INFLUENZA SEASONAL QUADRIVALENT HIGH DOSE AGE 65+ Carl Encarnacion MD Work Phone: Start: 06-26-2022 Fixya-Funidelia COVI D-19 BIVALENT BOOSTER VACCINE, AGE 12+ YR Carl Encarnacion MD Work Phone: Extraction of cataract DR KOBY WALLER MD Plan of Treatment Date Care Activity Detail Author Start: 08-18-2026 Diabetes Screening Diabetes Screenin [facility] Start: 07-26-2026 [facility] Start: 07-14-2026 Diabetes Screening Diabetes Screenin [facility] Start: 07-07-2026 Diabetes Screening Diabetes Screenin [facility] Start: 06-10-2026 Diabetes Screening Diabetes Screenin [facility] Start: 06-02-2026 Diabetes Screening Diabetes Screenin [facility] Start: 04-14-2026 Diabetes Screening Diabetes Screenin g [facility] Start: 04-12-2026 DIABETES SCREEN DIABETES SCREEN [facility] Start: 03-22-2026 DIABETES SCREEN DIABETES SCREEN [facility] Start: 01-15-2026 DIABETES SCREEN DIABETES SCREEN [facility] Start: 12-12-2024 DIABETES SCREEN DIABETES SCREEN [facility] Start: 08-12-2024 DIABETES SCREEN DIABETES SCREEN [facility] Start: 04-09-2024 Covid-19 Vaccine ( season) Covid-19 Vaccine () [facility] Start: 04-09-2024 Covid-19 Vaccine (7 - 2024-25 season) Covid-19 Vaccine ( season) [facility] Start: 04-09-2024 Influenza vaccination Influenza Vacc ine (#1) [facility] Start: 02-17-2024 End: 02-17-2024 Patient encounter procedure 02/17/2024 10:20 AM EDT Office Visit [facility] [address] [place], [place] [id number] Kristen Eugene PA-C [address] [place], [place] [id number] Medicare wellness [facility] [place] Comment on above: Medicare wellness Start: 01-13-2024 End: 04-13-2024 Bacteria identified in Urine by Culture URINE CULTURE Microbiology Routine Recurrent UTI (urinary tract infection) Expected: 01/13/2024, Expires: 04/13/2024 [facility] Work Phone: Comment on above: Expected: 01/13/2024 , Expires: 04/13/2024 Start: 12-23-2023 End: 03-23-2024 Bacteria identified in Urine by Culture URINE CULTURE Microbiology Routine Recurrent UTI (urinary tract infection) Expected: 12/23/2023, Expires: 03/23/2024 [facility] Work Phone: Comment on above: Expected: 12/23/2023 , Expires: 03/23/2024 Start: 12-13-2023 End: 03-13-2024 Bacteria identified in Urine by Culture URINE CULTURE Microbiology Routine Recurrent UTI (urinary tract infection) Expected: 12/13/2023, Expires: 03/13/2024 [facility] Work Phone: Comment on above: Expected: 12/13/2023 , Expires: 03/13/2024 Start: 12-13-2023 End: 03-13-2024 URINALYSIS, REFLEX MICROSCOPIC URINALYSIS, REFLEX MICROSCOPIC Lab Routine Recurrent UTI (urinary tract infection) Expected: 12/13/2023, Expires: 03/13/2024 [facility] Comment on above: Expected: 12/13/2023 , Expires: 03/13/2024 Start: 11-26-2023 Patient discharge [facility] Start: 11-24-2023 Referral to service [facility] Start: 11-23-2023 Bacteria identified in Urine by Culture [facility] Start: 11-23-2023 Following clinical p athway protocol [facility] Start: 11-23-2023 Ambulation without limitation [facility] Start: 11-23-2023 Assessment of risk o f venous thromboembolism [facility] Start: 11-23-2023 Insertion of cathete r into peripheral vein [facility] Start: 11-23-2023 Providing care accor ding to standard [facility] Start: 11-23-2023 Referral to occupati onal therapist [facility] Start: 11-23-2023 Referral to service [facility] Start: 11-23-2023 [facility] Start: 11-23-2023 Hospital admission, emergency, from emergency room, medical nature [facility] Start: 11-23-2023 Verification routine [facility] Start: 11-23-2023 Admission procedure [facility] Start: 11-23-2023 [facility] Start: 11-23-2023 [facility] Start: 08-09-2023 Advance Directive Discussion Advance Directive Discussion [facility] Start: 08-09-2023 Behavioral Health Screening Behavioral Health Screening [facility] Start: 08-09-2023 Depression Assessment Depression Ass essment [facility] Start: 07-14-2023 End: 10-13-2023 Basic metabolic 2000 panel - Serum or Plasma BASIC METABOLIC PNL Lab STAT Malignant neoplasm of right ovary (HCC) Expected: 07/14/2023, Expires: 10/13/2023 [facility] Work Phone: Comment on above: Expected: 07/14/2023 , Expires: 10/13/2023 Start: 07-12-2023 Covid-19 Vaccine () Covid-19 Vaccine () [facility] Start: 06-26-2023 Shingrix Vaccine (1 of 2) Hoff grix Vaccine (1 of 2) [facility] Comment on above: Postponed from 01/21 (Insurance Coverage) Start: 06-26-2023 SHINGRIX VACCINE (2 of 3) HOFF GRIX VACCINE (2 of 3) [facility] Comment on above: Postponed from 01/21 (Insurance Coverage) Start: 06-26-2023 Urine microalbumin profile [facility] Comment on above: Postponed from 03/17 (Insurance Coverage) Start: 06-18-2023 End: 09-17-2023 Basic metabolic 2000 panel - Serum or Plasma BASIC METABOLIC PNL Lab STAT 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 (HCC) Expected: 06/18/2023, Expires: 09/17/2023 [facility] Work Phone: Comment on above: Expected: 06/18/2023 , Expires: 09/17/2023 Start: 06-07-2023 End: 09-06-2023 PAULINE ISTAT BMP PAULINE ISTAT BMP Lab STAT 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 (HCC) Expected: 06/07/2023, Expires: 09/06/2023 [facility] Work Phone: Comment on above: Expected: 06/07/2023 , Expires: 09/06/2023 Start: 04-09-2023 Influenza vaccination [facility] Start: 01-25-2023 End: 03-27-2023 Bacteria identified in Urine by Culture URINE CULTURE Microbiology Routine Urinary frequency Expected: 01/25/2023, Expires: 03/27/2023 [facility] Work Phone: Comment on above: Expected: 01/25/2023 , Expires: 03/27/2023 Start: 10-24-2022 COVID-19 VACCINE (5 - Mixed Product series) COVID-19 VACCINE (5 - Mixed Product series) [facility] Start: 08-09-2022 ADVANCE DIRECTIVE DISCUSSION ADVANCE DIRECTIVE DISCUSSION [facility] Start: 08-09-2022 DEPRESSION ASSESSMENT DEPRESSION ASS ESSMENT [facility] Start: 04-09-2022 Influenza vaccination INFLUENZA (#1) [facility] Start: 12-10-2021 COVID-19 VACCINE (4 - Booster) COVID-19 VACCINE (4 - Booster) [facility] Start: 11-12-2021 End: 01-12-2022 Bacteria identified in Urine by Culture URINE CULTURE Microbiology Routine Frequent UTI Confusion Expected: 11/12/2021, Expires: 01/12/2022 [facility] Work Phone: Comment on above: Expected: 11/12/2021 , Expires: 01/12/2022 Start: 11-12-2021 End: 01-12-2022 Urinalysis complete panel - Urine URINALYSIS, WITH MICROSCOPIC Lab Routine Frequent UTI Confusion Expected: 11/12/2021, Expires: 01/12/2022 [facility] Work Phone: Comment on above: Expected: 11/12/2021 , Expires: 01/12/2022 Start: 10-07-2021 COVID-19 VACCINE (4 - Booster) COVID-19 VACCINE (4 - Booster) [facility] Start: 08-09-2021 ADVANCE DIRECTIVE DISCUSSION ADVANCE DIRECTIVE DISCUSSION [facility] Start: 08-09-2021 DEPRESSION ASSESSMENT DEPRESSION ASS ESSMENT [facility] Start: 2014 RSV Vaccine (1 - 1-d ose 75+ series) RSV Vaccine (1 - 1-dose 75+ series) [facility] Start: 01-22-2012 Shingrix Vaccine (1 of 2) Hoff grix Vaccine (1 of 2) [facility] Start: 01-22-2012 SHINGRIX VACCINE (2 of 3) HOFF GRIX VACCINE (2 of 3) [facility] Start: 10-22-2005 Screening for malign ant neoplasm of cervix Cervical Cancer Screening [facility] Start: 1999 RSV Vaccine (1 - 1-d ose 60+ series) RSV Vaccine (1 - 1-dose 60+ series) [facility] Start: 1958 Urine microalbumin profile [facility] Start: 1957 Anxiety Screening Anxiety Screening [facility] Start: 1957 Depression Screening Depression Scre ening [facility] End: 06-06-2024 Cancer Ag 125 [Units/volume] in Serum or Plasma CA 125 BLD Lab Routine 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 (HCC) Every 3 weeks for 30 Occurrences starting 06/07/2023 until 06/06/2024 [facility] Work Phone: Comment on above: Every 3 weeks for 30 Occurrences starting 06/07/2023 until 06/06/2024 End: 06-06-2024 CBC W Auto Differential panel - Blood CBC + DIFF Lab STAT 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 (HCC) Every 3 weeks for 30 Occurrences starting 06/07/2023 until 06/06/2024 [facility] Work Phone: Comment on above: Every 3 weeks for 30 Occurrences starting 06/07/2023 until 06/06/2024 End: 06-06-2024 Comprehensive metabolic 2000 panel - Serum or Plasma COMP METABOLIC PANEL Lab STAT 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 (HCC) Every 3 weeks for 30 Occurrences starting 06/07/2023 until 06/06/2024 [facility] Work Phone: Comment on above: Every 3 weeks for 30 Occurrences starting 06/07/2023 until 06/06/2024 End: 03-22-2024 Echocardiography ECHO Cardiology KARLENE Preop examination 1 Occurrences starting 03/22/2023 until 03/22/2024 [facility] Work Phone: Comment on above: 1 Occurrences starti ng 03/22/2023 until 03/22/2024 End: 06-06-2024 Magnesium [Mass/volume] in Serum or Plasma MAGNESIUM BLD Lab Routine 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 (HCC) Every 3 weeks for 30 Occurrences starting 06/07/2023 until 06/06/2024 [facility] Work Phone: Comment on above: Every 3 weeks for 30 Occurrences starting 06/07/2023 until 06/06/2024 OXIMETRY - NOCTURNAL OXIMETRY - NOCTURNAL Procedures Routine Hypoxia Ordered: 05/01/2022 [facility] Work Phone: Comment on above: Ordered: 05/01/2022 End: 05-31-2023 OXIMETRY WITH AMBULATION OXIMETRY WITH AMBULATION PFT Routine Hypoxia 1 Occurrences starting 05/01/2022 until 05/31/2023 [facility] Work Phone: Comment on above: 1 Occurrences starti ng 05/01/2022 until 05/31/2023 PAIN PANEL, UR QUANT PAIN PANEL, UR QUANT Lab Routine Osteoarthritis of multiple joints, unspecified osteoarthritis type Medication management Ordered: 12/12/2021 [facility] Work Phone: Comment on above: Ordered: 12/12/2021 PAIN PANEL, UR QUANT PAIN PANEL, UR QUANT Lab Routine Osteoarthritis of multiple joints, unspecified osteoarthritis type Medication management Ordered: 12/12/2021 [facility] Work Phone: Comment on above: Ordered: 12/12/2021 Patient Education ED Back Sprain/Strain W [facility] Work Phone: Patient referral [facility] Work Phone: PT PLAN OF CARE CERTIFICATION PT PLAN OF CARE CERTIFICATION Procedures Routine Sciatica, right side Falls, subsequent encounter Ordered: 02/02/2023 [facility] Comment on above: Ordered: 02/02/2023 End: 02-26-2024 Radex spine lumbosacral 2/3 views XR LUMBAR GENERAL 3V AP/LAT/L5-S1 Radiology Routine Sciatica, right side Fall, subsequent encounter 1 Occurrences starting 01/27/2023 until 02/26/2024 [facility] Work Phone: Comment on above: 1 Occurrences starti ng 01/27/2023 until 02/26/2024 Radex spine lumbosac ral 2/3 views XR LUMBAR GENERAL 3V AP/LAT/L5-S1 Radiology Routine Sciatica, right side Fall, subsequent encounter 01/27/2023 12:01 PM EDT [facility] Work Phone: End: 08-18-2023 Radiologic exam chest 2 views XR CHEST 2V FRONTAL/LAT Radiology STAT Acute cough Wheezing 1 Occurrences starting 07/19/2022 until 08/18/2023 [facility] Work Phone: Comment on above: 1 Occurrences starti ng 07/19/2022 until 08/18/2023 Radiologic exam ches t 2 views XR CHEST 2V FRONTAL/LAT Radiology Routine Ovarian mass Preop examination 03/22/2023 1:40 PM EDT [facility] Work Phone: SPECIMEN VALIDITY, URINE SPECIME N VALIDITY, URINE Lab Routine Osteoarthritis of multiple joints, unspecified osteoarthritis type Medication management Ordered: 12/12/2021 [facility] Work Phone: Comment on above: Ordered: 12/12/2021 TOX SCREEN ROUT UR TOX SCREEN RO UT UR Lab Routine Osteoarthritis of multiple joints, unspecified osteoarthritis type Medication management Ordered: 12/12/2021 [facility] Work Phone: Comment on above: Ordered: 12/12/2021 [facility] Immunizations Immunization Date Immunization Notes Care Provider Jt valentine 05-17-2023 COVID-19 vaccine, ag e 12+ yr, season ([email or web address]) Carl Encarnacion MD Work Phone: [facility] 05-17-2023 influenza (HD-IIV4) vaccine, age 65+ yr, high dose, quadrivalent, PF (FLUZONE HIGH-DOSE) Carl Encarnacion MD Work Phone: [facility] 05-17-2023 influenza virus vacc ine, unspecified formulation USMAN CHILDS MD FAC [facility] 05-17-2023 SARS-CoV-2 (COVID-19 ) [id number] USMAN CHILDS MD FACP [facility] Comment on above: Result Comment: 2023: TPV80 06-26-2022 COVID-19 booster vaccine, age 12+ yr, bivalent (Fixya-BIONTECH) Carl Encarnacion MD Work Phone: [facility] 06-26-2022 influenza, high-dose , quadrivalent vaccine (FLUZONE HIGH DOSE QUADRIVALENT) Carl Encarnacion MD Work Phone: [facility] 06-26-2022 influenza virus vacc ine, unspecified formulation Annmarie Tucker APRN.[facility] Work Phone: [facility] 08-12-2021 COVID-19 vaccine, ag e 12+ yr (PFIZER-BIONTECH - [facility]) Carl Encarnacion MD Work Phone: [facility] Work Phone: Comment on above: Result Comment: 2023: INDIVIDUALS OVER 80 YEARS OF AGE 1005-31-2021 influenza virus vacc ine, unspecified formulation USMAN CHILDS MD [facility] 05-31-2021 influenza, injectabl e, quadrivalent, preservative free [facility] 05-31-2021 influenza, seasonal, injectable [facility] 09-29-2020 COVID-19 vaccine, ag e 12+ yr (PFIZER-BIONTECH - [facility]) Carl Encarnacion MD Work Phone: [facility] Work Phone: Comment on above: Result Comment: 2023: TPV80 09-05-2020 Covid (Pfizer) [facility] Comment on above: Result Comment: 2023: TPV80 09-05-2020 COVID-19 vaccine, fu ll dose (MODERNA) Carl Encarnacion MD Work Phone: [facility] Work Phone: 06-15-2020 influenza virus vacc ine, unspecified formulation USMAN CHILDS MD [facility] 06-15-2020 influenza, injectabl e, quadrivalent, contains preservative Carl Encarnacion MD Work Phone: [facility] 05-08-2019 influenza virus vacc ine, unspecified formulation USMAN CHILDS MD [facility] 05-08-2019 influenza, high dose seasonal, preservative-free Carl Encarnacion MD Work Phone: [facility] 05-10-2018 influenza virus vacc ine, unspecified formulation USMAN CHILDS MD FAC [facility] 05-10-2018 influenza, high dose seasonal, preservative-free Carl Encarnacion MD Work Phone: [facility] 05-17-2017 influenza virus vacc ine, unspecified formulation USMAN CHILDS MD FAC [facility] 05-17-2017 influenza, high dose seasonal, preservative-free Carl Encarnacion MD Work Phone: [facility] 02-26-2017 pneumococcal polysaccharide vaccine, 23 valent Carl Encarnacion MD Work Phone: [facility] 05-13-2016 influenza virus vacc ine, unspecified formulation USMAN CHILDS MD FAC [facility] 05-13-2016 influenza, high dose seasonal, preservative-free Carl Encarnacion MD Work Phone: [facility] 02-27-2016 pneumococcal conjuga te vaccine, 13 valent Carl Encarnacion MD Work Phone: [facility] 07-16-2015 influenza virus vacc ine, unspecified formulation USMAN CHILDS MD FAC [facility] 07-16-2015 influenza, injectabl e, quadrivalent, contains preservative Carl Encarnacion MD Work Phone: [facility] Work Phone: 05-11-2014 influenza virus vacc ine, unspecified formulation USMAN CHILDS MD [facility] 05-11-2014 influenza, seasonal, injectable Carl Encarnacion MD Work Phone: [facility] Work Phone: 07-17-2013 influenza virus vacc ine, unspecified formulation Carl Encarnacion MD Work Phone: [facility] Work Phone: 07-09-2012 influenza virus vacc ine, unspecified formulation Carl Encarnacion MD Work Phone: [facility] Work Phone: 11-27-2011 zoster vaccine, live Carl Encarnacion MD Work Phone: [facility] 06-24-2010 influenza virus vacc ine, unspecified formulation Carl Encarnacion MD Work Phone: [facility] 07-13-2006 influenza virus vacc ine, unspecified formulation Carl Encarnacion MD Work Phone: [facility] Work Phone: 07-13-2006 pneumococcal polysaccharide vaccine, 23 valent Carl Encarnacion MD Work Phone: [facility] Work Phone: Payers Date Payer Category Payer Private Health Insurance [id number] 2024 Self-pay [id number] 2024 Medicaid [id number] 2023 Medicare [id number] 2021 Unknown ANTHEM BLUE [facility] S AND BLUE SHIELD ANTHEM MEDIBLUE ACCESS [id number] 2021-Present [phone] [address] [place] [address] PPO [id number] 2021 Unknown [id number]. [id number]. [id number] 2021 Medicare [id number] 2015 Unknown HOSPITAL/MEDICAL GENERIC MEDICAL GENERIC [id number] 2015-Present [phone] [place] [address] Indemnity [id number]. [id number] 2004 Medicare MEDICARE MEDICAR E A AND B [id number] 2004-Present [phone] [address] [address] [place] [address] Medicare [id number]. [id number] 1939 Unknown [id number] 2.16.840.1.939601.3.579.2. 627 1939 Unknown [id number] 2.16.840.1.267648.3.579.2. 627 1939 Unknown [id number] 2.16.840.1.484454.3.579.2. 627 1939 Unknown [id number] 2.16.840.1.137782.3.579.2. 627 1939 Unknown [id number] 2.16840.1.858725.3.579.2. 627 1939 Unknown [id number] 2.16.840.1.960029.3.579.2. 627 1939 Unknown [id number] 2.16.840.1.550254.3.579.2. 627 Unknown AULTCARE [id number] Unknown COMMERCIAL OTHER [id number] Unknown [id number] 2.16.840.1.848009.3.579.2. 462 Unknown [id number] 2.16.840.1.265291.3.579.2. 462 Unknown [id number] 2.16.840.1.486135.3.579.2. 462 Unknown [id number] 2.16.840.1.866540.3.579.2. 462 Unknown [id number] 2.16.840.1.115052.3.579.2. 462 Unknown [id number] 2.16.840.1.514481.3.579.2. 462 Unknown [id number] 2.16.840.1.142082.3.579.2. 462 Unknown [id number] 2.16.840.1.149320.3.579.2. 462 Unknown [id number] 2.16.840.1.938317.3.579.2. 462 Unknown [id number] 2.16.840.1.952671.3.579.2. 462 Unknown [id number] 2.16840.1.323991.3.579.2. 462 Unknown [id number] 2.16840.1.666823.3.579.2. 462 Unknown [id number] 2.840.1.484505.3.579.2. 462 Unknown [id number] 2.840.1.597455.3.579.2. 462 Unknown [id number] 2.16840.1.211379.3.579.2. 462 Unknown [id number] 2.16840.1.491830.3.579.2. 462 Unknown [id number] 2.840.1.790340.3.579.2. 462 Unknown [id number] 2.840.1.176906.3.579.2. 462 Unknown [id number] 2.16840.1.850111.3.579.2. 462 Unknown [id number] 2.16.840.1.586377.3.579.2. 462 Unknown [id number] 2.16.840.1.082217.3.579.2. 462 Unknown [id number] 2.16.840.1.914479.3.579.2. 462 Unknown [id number] 2.16.840.1.394411.3.579.2. 462 Unknown [id number] 2.16840.1.732527.3.579.2. 462 Unknown [id number] 2.16840.1.755692.3.579.2. 462 Unknown [id number] 2.16.840.1.095605.3.579.2. 462 Unknown [id number] 2.16.840.1.141293.3.579.2. 462 Unknown [id number] 2.840.1.115853.3.579.2. 462 Unknown [id number] 2.840.1.282447.3.579.2. 462 Unknown [id number] 2.840.1.047044.3.579.2. 462 Unknown [id number] 2.840.1.025524.3.579.2. 462 Unknown [id number] 2.840.1.414850.3.579.2. 462 Unknown [id number] 2.840.1.206775.3.579.2. 462 Unknown [id number] 2.840.1.860355.3.579.2. 462 Unknown [id number] 2.840.1.224884.3.579.2. 462 Unknown [id number] 2.840.1.393807.3.579.2. 462 Unknown [id number] 2.840.1.360143.3.579.2. 462 Unknown [id number] 2.840.1.762093.3.579.2. 462 Unknown [id number] 2.840.1.383203.3.579.2. 462 Unknown [id number] 2.840.1.130544.3.579.2. 462 Unknown [id number] 2.840.1.721323.3.579.2. 462 Social History Date Type Detail Facility Start: 11-23-2011 End: 09-16-2023 Tobacco smoking status NHIS Never smoked tobacco [facility] Start: 06-17-2021 End: 07-19-2022 Alcohol intake Current non-drinker of alcohol (finding) [facility] Start: 1940 Sex Assigned At Not on file C [facility] Start: 12-02-2021 End: 06-26-2022 Exposure to SARS-CoV-2 (event) Not sure [facility] Start: 11-23-2011 End: 06-02-2023 Tobacco use and exposure Smokeless tobacco non-user [facility] Start: 01-12-2023 End: 11-23-2023 Tobacco smoking status NHIS Unknown if ever smoked [facility] Start: 1940 Sex Assigned At Female W [facility] Start: 07-15-2020 End: 03-10-2023 History of Social function [facility] Work Phone: Start: 07-15-2020 End: 03-10-2023 Tobacco use panel [facility] Work Phone: Adult Depression Screening Assessment 0 [facility] Work Phone: Start: 06-02-2023 End: 03-14-2024 Tobacco smoking status NHIS Ex-smoker [facility] History of tobacco use Current smoker [facility] History of tobacco use Cigarette Smoker C [facility] Start: 06-04-2023 Gender identity Identifies as female gender (finding) [facility] Start: 06-04-2023 Sexual orientation Heterosexual (fin ding) [facility] Start: 11-09-2024 End: 11-24-2024 Sex Female (finding) [facility] Goals Date Patient Goal Desired Activity /State Functional Status Date Assessment Result Facility 02-14-2024 Functional Status Room check performed [facility] 02-14-2024 Functional Status Refused [facility] 02-14-2024 Functional Status [facility] 02-14-2024 Functional Status [facility] 02-13-2024 Functional Status [facility] 02-13-2024 Functional Status Skin Care Prev entative Intervention(s) heel(s)s elevated [facility] 02-13-2024 Functional Status [facility] 02-13-2024 Functional Status [facility] 02-12-2024 Functional Status Lunch Percent [facility] 02-12-2024 Functional Status [facility] 02-11-2024 Functional Status [facility] 02-11-2024 Functional Status Min A Rosa Maria [facility] 02-11-2024 Functional Status bilateral knee high removed/off [facility] 02-11-2024 Functional Status Reason SCD Rem nuvia/Off Patient refused [facility] 02-10-2024 Functional Status Rosa Maria [facility] 02-10-2024 Functional Status [facility] 02-10-2024 Functional Status Rosa Maria [facility] 02-09-2024 Functional Status [facility] 02-09-2024 Functional Status Pt. normally d oes sponge bathing. [facility] 02-09-2024 Functional Status NPO Status Maintained A [facility] 02-08-2024 Functional Status Rosa Maria [facility] 02-07-2024 Functional Status Rosa Maria [facility] 02-07-2024 Functional Status Rosa Maria [facility] 02-07-2024 Functional Status Transparent silicone dr veronica [facility] 02-07-2024 Functional Status Assistive Equi pment elevated on pillows [facility] 02-07-2024 Functional Status Rosa Maria [facility] 02-06-2024 Functional Status Rosa Maria [facility] 02-06-2024 Functional Status [facility] 02-06-2024 Functional Status Rosa Maria [facility] 02-05-2024 Functional Status None Rosa Maria [facility] 02-05-2024 Functional Status Awake Rosa Maria [facility] 02-04-2024 Functional Status Rosa Maria [facility] 02-04-2024 Functional Status Identified as high risk, Fall ID band on, Door open, Non-Slip footwear, Room check performed [facility] 02-04-2024 Functional Status Rosa Maria Bro[facility] 02-04-2024 Functional Status Rosa Maria [facility] 02-04-2024 Functional Status 25 Rosa Maria [facility] 02-04-2024 Functional Status Rosa Maria [facility] 02-03-2024 Functional Status Up to Chair Re rohini up in chair [facility] 02-03-2024 Functional Status Pt. normally d oes sponge bathing. [facility] 02-03-2024 Functional Status [facility] Functional Status Single level home [facility] 02-01-2024 Functional Status Sensory Deficits None A [facility] 02-01-2024 Functional Status Max A Rosa Maria [facility] 02-01-2024 Functional Status Door open, Non-Slip footwear, Room check performed [facility] 02-01-2024 Functional Status Rosa Maria [facility] 02-01-2024 Functional Status Rosa Maria [facility] 01-31-2024 Functional Status Repositioned right side [facility] 01-31-2024 Functional Status Rosa Maria [facility] 01-31-2024 Functional Status Rosa Maria [facility] 01-31-2024 Functional Status Rosa Maria [facility] 01-31-2024 Functional Status Rosa Maria [facility] 01-31-2024 Functional Status Rosa Maria [facility] 01-31-2024 Functional Status Rosa Maria [facility] 01-30-2024 Functional Status Foam dressing [facility] 01-30-2024 Functional Status Rosa Maria Ho [facility] 01-29-2024 Functional Status Dinner Percent 25 [facility] 01-29-2024 Functional Status Derick A Rosa Maria [facility] 01-29-2024 Functional Status Rosa Maria [facility] 01-29-2024 Functional Status Rosa Maria [facility] 01-28-2024 Functional Status Rosa Maria [facility] 01-28-2024 Functional Status Rosa Marialilly Brooke [facility] 01-28-2024 Functional Status Rosa Maria Ho luis fernando [facility] 01-27-2024 Functional Status Rosa Maria Ho luis fernando [facility] 01-27-2024 Functional Status Mod A Rosa Maria Ho luis fernando [facility] 01-27-2024 Functional Status [facility] 01-27-2024 Functional Status Min A 9 [facility] 01-26-2024 Functional Status Independent Rosa Maria Ho luis fernando [facility] 01-26-2024 Functional Status Rosa Maria Ho luis fernando [facility] 01-25-2024 Functional Status Rosa Maria Ho luis fernando [facility] 01-25-2024 Functional Status [facility] 01-24-2024 Functional Status Single level home [facility] 01-23-2024 Functional Status [facility] 01-23-2024 Functional Status [facility] 01-22-2024 Functional Status [facility] 01-22-2024 Functional Status Sensory Deficits None A [facility] 12-11-2023 Functional Status Repositions self [facility] 12-11-2023 Functional Status Room check performed [facility] 12-11-2023 Functional Status Rosa Maria Brooke [facility] 12-11-2023 Functional Status [facility] 12-10-2023 Functional Status Activity Statu s ADL Sleeping quietly with easy respirations [facility] 12-10-2023 Functional Status bilateral knee high removed/off [facility] 12-10-2023 Functional Status [facility] 12-10-2023 Functional Status [facility] 12-10-2023 Functional Status Mod I Rosa Maria Brooke [facility] 12-10-2023 Functional Status [facility] 12-10-2023 Functional Status Rosa Maria Ho spital [facility] 12-09-2023 Functional Status Rosa Maria Ho luis f[facility] 12-09-2023 Functional Status Supervised Rosa Maria Ho luis [facility] 12-09-2023 Functional Status Rosa Maria Ho luis f[facility] 12-09-2023 Functional Status Rosa Maria Ho luis f[facility] 12-08-2023 Functional Status Rosa Maria Ho luis f[facility]ando [facility] 12-08-2023 Functional Status Rosa Maria Ho luis f[facility] 12-07-2023 Functional Status Rosa Maria Ho luis fernando [facility] 12-07-2023 Functional Status Rosa [facility] 12-07-2023 Functional Status Linen Change Done [facility] 12-07-2023 Functional Status [facility] 12-06-2023 Functional Status [facility] 12-06-2023 Functional Status [facility] 12-05-2023 Functional Status Skin Care Prev entative Intervention(s) heel(s)s elevated [facility] 12-05-2023 Functional Status [facility] 12-05-2023 Functional Status [facility] 12-05-2023 Functional Status [facility] 12-04-2023 Functional Status Lunch Percent 50 [facility] 12-04-2023 Functional Status Rosa Maria Ho [facility] 12-04-2023 Functional Status [facility] 12-03-2023 Functional Status Independent 10 [facility] 12-03-2023 Functional Status [facility] 12-02-2023 Functional Status Up to Chair Returned to bed [facility] 12-02-2023 Functional Status Rosa Maria Ho [facility] 12-02-2023 Functional Status Dinner Percent 5 [facility] 12-02-2023 Functional Status Rosa Maria [facility] 12-01-2023 Functional Status Rosa Maria Brooke [facility] 12-01-2023 Functional Status Rosa Maria Brooke [facility] 11-30-2023 Functional Status Rosa Maria Brooke [facility] 11-30-2023 Functional Status Rosa Maria Brooke [facility] 11-29-2023 Functional Status Mod A Rosa Maria [facility] 11-28-2023 Functional Status Done Rosa Maria Brooke [facility] 11-27-2023 Functional Status Single level home [facility] 11-27-2023 Functional Status Rosa Maria [facility] 11-26-2023 Functional Status Sensory Deficits None [facility] 11-26-2023 Functional status Chair [facility] Work Phone: Mental Status Date Assessment Result Facility 02-14-2024 Mental Status Orientation Asse ssment Identifies self, Not oriented to time, Oriented to person 1 [facility] 02-14-2024 Mental Status Oriented x 4 [facility] 02-13-2024 Mental Status [facility] 02-13-2024 Mental Status [facility] 02-04-2024 Mental Status Not oriented to place, Not oriented to time, Not oriented to situation, Forgetful, Follows simple commands [facility] 02-04-2024 Mental Status [facility] 02-03-2024 Mental Status [facility] 02-01-2024 Mental Status Orientation Asse ssment Oriented x 4 [facility] 02-01-2024 Mental Status Not oriented to person, Not oriented to time [facility] 01-31-2024 Mental Status [facility] 01-31-2024 Mental Status [facility] 01-31-2024 Mental Status [facility] 12-11-2023 Mental Status Oriented x 4 [facility] 12-10-2023 Mental Status [facility] 12-10-2023 Mental Status [facility] 12-10-2023 [facility] function [facility] Work Phone: 11-23-2023 Cognitive function Level Of Cons ciousness Awake;Alert;Appropriate;Follow s Commands [facility] Work Phone: Clinical Notes 06-18-2021 to 02-15-2024 [...] was identified. 02/15/2024 by Carl Encarnacion MD [facility] 02-15-2024 Miscellaneous Notes The following approved [...] 2024 8:15 AM documented in this encounter [facility] 02-15-2024 Telephone encounter Note Prescription Refill [...] Puckett LPN February 15, 2024 11:25 AM T [facility] 02-15-2024 Telephone encounter Note Prescription Refill [...] Stephanie Estrada February 15, 2024 8:15 AM [facility] 02-14-2024 Hospital Discharg e instructions Patient [...] Follow these instructions at home: Medicines Take dkao-dlr-rwwcojv and prescription medicines only as told by [...] and water are not available, use hand corporate event planner. You should wash your hands: ?After using [...] health care provider. Practice good oral hygiene. Ellsworth your teeth two times a day, and [...] 05/09/2007 Document Revised: 12/15/2019 Document Reviewed: 12/15/2019 [employer] Patient Education 2020 [employer]. Follow Up Care 02/04/2024 10:08:29 With:LINDA ANNE BA, MD, Infectious Disease, Infectious Disease Group Address: [facility] [place] [address] [place] [address]- [phone] When:Within 3 Week(s) Comments:Schedule appointment as soon as possible With:Alyson Blank for skilled care, report to [phone] Address:Unknown When:1-2 days With:ESTER BEJARANO Address: [address] [place] [address]- Business (1) When:1-2 days [facility] 02-14-2024 Note Discharge Instructions Thank you for allowing [facility] to assist you with your healthcare needs. The following is important discharge information regarding your hospital visit. Your Care Team ESTER BEJARANO MSN, PICKING CREW SUPERVISOR What to do next Instructions From Your [...] Wednesday and send results to fax number [phone] Anne Please call Dr. Anne's office for a follow-up appointment in 2-4 weeks, Phone number [phone]. Scheduled Follow-Up Appointments Appointment Type When Where Contact Information StatusEcho - Echocardiogram Adult 08/21/2024 11:00 AM [facility] Rad[facility] [phone] Confirmed CV OV 09/21/2024 01:15 PM EST [facility] Confirmed Follow Up Appointments Follow Up with LINDA ANNE BA, MD, Infectious Disease, Infectious Disease Group When:In 3 weeks Where:[facility] [place] [address] [place] [address] [phone] Additional Information: Schedule appointment as soon as possible Follow Up with Alyson Blank for skilled care, report to [phone] When:Within 1-2 days Follow Up with ESTER BEJARANO When:Within 1-2 days Where:[address] [address]- Business (1) The Following Activity and Diet [...] Follow these instructions at home: Medicines Take pvjb-ibr-ppdgzri and prescription medicines only as told by [...] and water are not available, use hand corporate event planner. You should wash your hands: ? After [...] health care provider. Practice good oral hygiene. Ellsworth your teeth two times a day, and [...] Document Reviewed: 12/15/2019 [employer] Patient Education 2020 [employer]r. Additional Information VACCINATE! IT SAVES LIVES! Members of the community who have not yet received the COVID-19 vaccine and would like to receive it can visit one of [place] vaccine clinics. There are many vaccine clinic locations within the [facility]. For locations and available times, please visit [email or web address] It is important to note that some COVID mobile vaccine clinics are held outdoors and may be canceled in rainy or stormy conditions. To learn more about pediatric vaccinations (ages 5-11), we invite you to visit the [employer] webpage. https://www.Diurn[employer].org/ pages/9853-Zocwg-Xgijzokzvdu-Fr vakxhzre-Hyrhv-Fxlezoisq.html To learn more about the COVID-19 vaccine, we invite you to visit the CDC website for a list of frequently asked questions.https://www.cdc.gov/c oronavirus/2019-ncov/vaccines/f aq.html [employer] Patient Portal Access Instructions: Stay connected with your healthcare team and access your personal medical information anytime with the [employer] Patient Portal. Please follow the directions below to create your [employer] account: 1.Access the email account you provided upon registration to the hospital/physician office.2.Look for an invitation email from [facility].3.Open the email and access the invitation link: Accept Invitation to [employer].4.Fill in the required martinez to create your account. To access your account, visit [email or web address]. Click the blue button labeled "Access Patient Portal" and then log in with the username [...] you will allow to register on the [facility] for access to your information. You can also access the [facility] Patient Portal on the [facility] gu[employer]. Simply click on "Patient Portal" and then log into your account. If you would like to receive a full copy of your medical records, please contact the [facility] Medical Records Department by calling [phone], Wednesday through Wednesday between 8 a.m. and [...] Call your local pharmacy or go to [email or web address]://[employer]/[email or web address] to find one close to you.3.Make use of household items: Use cat litter or old coffee grounds to dispose medications if other options are not available. Mix your drugs with these household products, seal them in an airtight container and throw it into the garbage. Call [facility]: [phone] to be sure your drugs can be [...] been reviewed and explained to me and I,ACACIA WASHINGTONHEL S understand my current condition and have read and understand these discharge instructions. I have received a written copy of the plan/instructions. If I have questions, I am aware that I should contact my doctor. Patient/Picker/Puller Signature: Date/Time: Relationship to Patient: Witness Name/Signature: Date/Time: [facility] 02-14-2024 Note Discharge Instructions Thank you for allowing [facility] to assist you with your healthcare needs. The following is important discharge information regarding your hospital visit. Your Care Team ESTER BEJARANO, PICKING CREW SUPERVISOR What to do next Instructions From Your [...] Wednesday and send results to fax number [phone] Anne Please call Dr. Anne's office for a follow-up appointment in 2-4 weeks, Phone number [phone]. Scheduled Follow-Up Appointments Appointment Type When Where Contact Information StatusEcho - Echocardiogram Adult 08/21/2024 11:00 AM EST [facility] [phone] Confirmed CV OV 09/21/2024 01:15 PM EST [facility] Confirmed Follow Up Appointments Follow Up with LINDA ANNE BA, MD, Infectious Disease, Infectious Disease Group When:In 3 weeks Where:[facility] [place] [address] [place] [address]- [phone] Additional Information: Schedule appointment as soon as possible Follow Up with [facility] skilled care, report to [phone] When:Within 1-2 days Follow Up with ESTER BEJARANO When:Within 1-2 days Where:[facility] [address] [place] [address]- Business (1) The Following Activity and Diet [...] Transfer of Care Prognosis - Ordered -- Jodi, Patient Aware: Yes Transfer of Care Rehab Potential - Ordered -- Rehab potential jodi, 02/14/24 13:54:16 EDT Someone Will Contact You [...] Follow these instructions at home: Medicines Take cfjg-vvq-klqipfq and prescription medicines only as told by [...] and water are not available, use hand corporate event planner. You should wash your hands: ? After [...] health care provider. Practice good oral hygiene. Ellsworth your teeth two times a day, and [...] 05/09/2007 Document Revised: 12/15/2019 Document Reviewed: 12/15/2019 [employer] Patient Education 2020 [employer] Additional Information VACCINATE! IT SAVES LIVES! Members of the community who have not yet received the COVID-19 vaccine and would like to receive it can visit one of [place] vaccine clinics. There are many vaccine clinic locations within the [facility]. For locations and available times, please visit [email or web address] [email or web address]/. It is important to note that some COVID mobile vaccine clinics are held outdoors and may be canceled in rainy or stormy conditions. To learn more about pediatric vaccinations (ages 5-11), we invite you to visit the [facility] webpage. https://www.[facility].org/ pages/8918-Asawk-Xfoktoccizw-Fr wfckrdsp-Lacsx-Yvngcszfk.html To learn more about the COVID-19 vaccine, we invite you to visit the CDC website for a list of frequently asked questions.https://www.cdc.gov/c oronavirus/2019-ncov/vaccines/f aq.html [facility] Patient Portal Access Instructions: Stay connected with your healthcare team and access your personal medical information anytime with the [facility] [employer] Patient Portal. Please follow the directions below to create your [employer] account: 1.Access the email account you provided upon registration to the hospital/physician office.2.Look for an invitation email from [facility].3.Open the email and access the invitation link: Accept Invitation to [employer].4.Fill in the required martinez to create your account. To access your account, visit [email or web address]. Click the blue button labeled "Access Patient Portal" and then log in with the username [...] you will allow to register on the [facility] [employer] Patient Portal for access to your information. You can also access the [employer] Patient Portal on the [facility] [employer] guille. Simply click on "Patient Portal" and then log into your account. If you would like to receive a full copy of your medical records, please contact the [facility] Medical Records Department by calling [phone], Wednesday through Wednesday between 8 a.m. and [...] Call your local pharmacy or go to http://bit.ly/6A3Fq9g to find one close to you.3.Make use of household items: Use cat litter or old coffee grounds to dispose medications if other options are not available. Mix your drugs with these household products, seal them in an airtight container and throw it into the garbage. Call [facility]: [phone] to be sure your drugs can be [...] aware that I should contact my doctor. Patient/Picker/Puller Signature: Date/Time: Relationship to Patient: Witness Name/Signature: Date/Time: [facility] 02-14-2024 Note Discharge Instructions Thank you for allowing [facility] to assist you with your healthcare needs. The following is important discharge information regarding your hospital visit. Your Care Team ESTER BEJARANO MSN, PICKING CREW SUPERVISOR What to do next Instructions From Your [...] Wednesday and send results to fax number [phone] Anne Please call Dr. Anne's office for a follow-up appointment in 2-4 weeks, Phone number [phone]. Scheduled Follow-Up Appointments Appointment Type When Where Contact Information StatusEcho - Echocardiogram Adult 08/21/2024 11:00 AM [facility] Radiology [phone] Confirmed CV OV 09/21/2024 01:15 PM [facility] Confirmed Follow Up Appointments Follow Up with LINDA ANNE BA, MD, Infectious Disease, Infectious Disease Group When:In 3 weeks Where: [facility] [id number] [place] [address]- [phone] Additional Information: Schedule appointment as soon as possible Follow Up with [facility] care, report to [phone] When:Within 1-2 days Follow Up with ESTER BEJARANO When:Within 1-2 days Where:[address] [address]- Business (1) The Following Activity and Diet [...] Follow these instructions at home: Medicines Take hqhi-tcm-hfomqbh and prescription medicines only as told by [...] and water are not available, use hand corporate event planner. You should wash your hands: ? After [...] health care provider. Practice good oral hygiene. [place] your teeth two times a day, and [...] 05/09/2007 Document Revised: 12/15/2019 Document Reviewed: 12/15/2019 [employer] Patient Education 2020 [employer] Additional Information VACCINATE! IT SAVES LIVES! Members of the community who have not yet received the COVID-19 vaccine and would like to receive it can visit one of [place] vaccine clinics. There are many vaccine clinic locations within the [facility]. For locations and available times, please visit [email or web address] [place].gov/. It is important to note that some COVID mobile vaccine clinics are held outdoors and may be canceled in rainy or stormy conditions. To learn more about pediatric vaccinations (ages 5-11), we invite you to visit the [facility] webpage. https://www.[facility].org/ pages/0227-Ckfeu-Mgnxwgjxtvj-Fr ttdiqkla-Ugjdh-Hlsixpgme.html To learn more about the COVID-19 vaccine, we invite you to visit the CDC website for a list of frequently asked questions.https://www.cdc.gov/c oronavirus/2019-ncov/vaccines/f aq.html [employer] Patient Portal Access Instructions: Stay connected with your healthcare team and access your personal medical information anytime with the [employer] Patient Portal. Please follow the directions below to create your [employer] account: 1.Access the email account you provided upon registration to the hospital/physician office.2.Look for an invitation email from [facility].3.Open the email and access the invitation link: Accept Invitation to [employer].4.Fill in the required martinez to create your account. To access your account, visit [email or web address]. Click the blue button labeled "Access Patient Portal" and then log in with the username [...] you will allow to register on the [employer] Patient Portal for access to your information. You can also access the [employer] Patient Portal on the [employer] guille. Simply click on "Patient Portal" and then log into your account. If you would like to receive a full copy of your medical records, please contact the [facility] Medical Records Department by calling [phone], Wednesday through Wednesday between 8 a.m. and [...] Call your local pharmacy or go to [email or web address] [email or web address] to find one close to you.3.Make use of household items: Use cat litter or old coffee grounds to dispose medications if other options are not available. Mix your drugs with these household products, seal them in an airtight container and throw it into the garbage. Call [facility]: [phone] to be sure your drugs can be [...] been reviewed and explained to me and I,WASHINGTON STEFANO Pak understand my current condition and have read and understand these discharge instructions. I have received a written copy of the plan/instructions. If I have questions, I am aware that I should contact my doctor. Patient/Picker/Puller Signature: Date/Time: Relationship to Patient: Witness Name/Signature: Date/Time: [facility] 02-13-2024 Note Date of Service 02/13/2024 Subjective [...] Wednesday and send results to fax number [phone] Anne Please call Dr. Anen's office for a follow-up appointment in 2-4 weeks, Phone number [phone]. PICC line placed 02/11/2024. Functioning well. Regards to the patient's retention: Appears to have some symptoms of constipation, which is now improved. Allen catheter removed Resume home medications as deemed appropriate. Point of contact: Patient's daughter Stefano: [phone] Above plan of care was discussed with the patient at bedside, all questions answered appropriately. This is a note transcribed by me, the attending physician on service using the '[employer]' dictation software. Please excuse any grammatical errors, repetitions/duplications if any are present in the entirety of this note. Thank you. 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 Nuha Curtis MD Bioinformatics Analyst Messenger guille or Pager [phone] Problem List/Past Medical History Ongoing Acquired hypothyroidism [...] CANDIDA CURTIS MD on 02/05/2024 01:36 PM [facility] 02-13-2024 Cardiology Progress note Date of Service [...] ALIA MCCORMACK MD on 02/07/2024 05:47 PM [facility] 02-12-2024 Note Date of Service 02/12/2024 Subjective [...] Wednesday and send results to fax number [phone] Anne Please call Dr. Anne's office for a follow-up appointment in 2-4 weeks, Phone number [phone]. PICC line placed 02/11/2024. Functioning well. Regards to the patient's retention: Appears to have some symptoms of constipation, which is now improved. Allen catheter removed Resume home medications as deemed appropriate. Point of contact: Patient's daughter Stefano: [phone] Above plan of care was discussed with the patient at bedside, all questions answered appropriately. This is a note transcribed by me, the attending physician on service using the '[employer]' dictation software. Please excuse any grammatical errors, repetitions/duplications if any are present in the entirety of this note. Thank you. Anticipated Date of Discharge Await pre-CERT: Pre-CERT is obtained, patient can be discharged. Digitally Signed by DRE PHIPPS MD on 02/12/2024 01:17 PM [facility] 02-12-2024 Cardiology Progress note Date of Service [...] ALIA MCCORMACK MD on 02/09/2024 09:54 PM [facility] 02-11-2024 Procedure note Vascular Access Team Post Procedure Note Procedure: Peripherally Inserted Central Catheter (PICC) Indication: Long-Term Antibiotics Details: Consult for PICC Placement received. [...] Length: 0cm Arm Circ: 32cm Lot #: [id number] Complications: None Inserted by: Reno Tapia RN Plan: Chest x-ray complete and confirmed PICC placement in SVC. May use PICC now per protocol. Digitally Signed by MICH Tapia on 02/11/2024 05:39 PM [facility] 02-11-2024 Note ORIGINAL EXAMINATION: ONE XRAY VIEW [...] Sign Date: 02/11/2024 5:26:58 PM Ordering Provider: [facility] 02-11-2024 Note Date of Service 02/11/2024 Subjective [...] Oral Intake 628.00 Output Urinary Catheter Output: 5.00 Stool Count 2.00 Total Summary Total Intake [...] Wednesday and send results to fax number [phone] Anne Please call Dr. Anne's office for a follow-up appointment in 2-4 weeks, Phone number [phone]. Awaiting PICC line placement. Regards to the patient's retention: Appears to have some symptoms of constipation, which is now improved. Will perform voiding trial today. Resume home medications as deemed appropriate. Point of contact: Patient's daughter Stefano: [phone] Above plan of care was discussed with the patient at bedside, all questions answered appropriately. This is a note transcribed by me, the attending physician on service using the '[employer]' dictation software. Please excuse any grammatical errors, repetitions/duplications if any are present in the entirety of this note. Thank you. Anticipated Date of Discharge Patient can be discharged once PICC line is placed for IV antibiotics and when pre-CERT is obtained. Digitally Signed by DRE PHIPPS MD on 02/11/2024 11:42 AM [facility] 02-10-2024 Note Patient's cervical spine is contracted and follow commands poorly. Procedure can not be done safely as ordered. Consider CT imaging for valve evaluation Digitally Signed by PIO DONAHUE MD on 02/09/2024 11:45 AM [facility] 02-09-2024 Infectious diseas e Progress note Date of Service 02/09/2024 Objective Vitals and Measurements T: 36.7 C (Oral) TMIN: 36.5 C (Oral) TMAX: 36.7 C (Oral) HR: 64 RR: 18 BP: 113/42 SpO2: 93% Physical Exam Chart reviewed, patient examined. 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 MICRO - Microbiology PROCEDURE: [...] Locations *1: This test was performed at: [facility], [address] [place] [address], [facility] , [facility] ([place]) 02-09-2024 Note . MICRO - Microbiology PROCEDURE: [...] Locations *1: This test was performed at: [facility], [address] [place] [address], [id number]- , [facility] ([place]) 02-09-2024 Cardiology Progress note Date of Service [...] ALIA MCCORMACK MD on 02/09/2024 09:54 PM [facility] 02-09-2024 Note Exam Date Time Procedure Performing Provider Status 02/09/24 11:48 AM Transesophageal Echo cardiogram - CV Auth (Verified) [facility] 07-03-2024 Note Patient's cervical spine is contracted and follow commands poorly. Procedure can not be done safelyas ordered. Consider CT imaging for valve evaluation Digitally Signed by PIO DONAHUE MD on 02/09/2024 11:45 AM [id number] Infectious disease Progress note Date of Service 02/09/2024 Objective Vitals and Measurements T: 36.7 C (Oral) TMIN: 36.5 C (Oral) TMAX: 36.7 C (Oral) HR: 64 RR: 18 BP: 113/42 SpO2: 93% Physical Exam Chart reviewed, patient examined. Patient appears alert and oriented to self, she is aware of beingin a hospital but is unable to identify "[facility]", appears forgetful but does FSC, resting in [...] 2/2 -F Enterococcus faecalis 01/31 Blood Cultures 2/2 -F Enterococcus faecalis 02/01 Blood Cultures 2/2 -F Enterococcus faecalis 02/02 Blood Cultures 08/09 [...] Lima Vital RN on 02/09/2024 10:08 AM [facility]Krfgtwbi85-63-1803 Cardiology Progress note Date of Service 02/08/2024 [...] ALIA MCCORMACK MD on 02/08/2024 10:57 PM [facility]Kwuvxmet30-18-3447 Infectious disease Progress note Date of Service [...] chills or sweats although reports she is "always cold," Denies pain currently at rest. 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 INCISIONS/DRESSINGS: None EXTREMITIES: +1 BLE/pedal edema, BLE [...] 2/2 -F Enterococcus faecalis 01/31 Blood Cultures 22 -F Enterococcus faecalis 02/01 Blood Cultures 2/ -F Enterococcus faecalis 02/02 Blood Cultures 08/09 [...] 4.0 BUN: 9.0 Creatinine Lvl (s): 0.62 02/06 04:09 WBC: 4.5 Hgb: 10.7 L [...] CIPRIANO DANG MD on 02/09/2024 02:37 PM [id number] Cardiology Progress note Date of Service 02/07/2024 [...] ALIA MCCORMACK MD on 02/07/2024 05:47 PM [facility]Jzyhithz23-76-8246 Infectious disease Progress note Date of Service [...] blood cultures positive for E faecalis at [facility] with echocardiogram showing filiform strand-like echodensity so was transferred to [facility] for further evaluation. ID has been following [...] by JANAY SINHA on 02/07/2024 08:29 PM [id number] Palliative care Progress note Date of Service [...] GERD, and hypothyroidism. [facility] SALAZAR done. [...] to want palliative care she would need [facility] palliative care and hospice team as she lives outside of our jurisdiction. CODE STATUS confirmed patient's CODE STATUS is a DNR CCA DNI. Advanced directives patient expresses that she has a healthcare power of disability attorney she is named her daughter Stefano. Bacteremia blood cultures were positive for growing Enterococcus faeclis. Patient getting IV antibiotics. Cardiology was consulted for consideration of a SALAZAR. Order for SALAZAR is in place, unfortunatelycannot be completed today. Chronic diastolic congestive heart [...] MARIA ESTHER ALBRIGHT on 02/07/2024 10:39 AM [facility]Hympldff65-30-1715 Note. MICRO - Microbiology PROCEDURE: Blood Culture (bacterial) [*1] SOURCE: Blood BODY SITE: COLLECTED DATE/TIME: 02/03/2024 05:50 EDT RECEIVED DATE/TIME: 02/03/2024 15:21 EDT START DATE/TIME: 02/03/2024 15:21 EDT FREE TEXT SOURCE: FINAL REPORTS Final Report [] Verified Date/Time/Personnel: 02/06/2024 10:55 EDT Enterococcus faecalis Isolated from anaerobe bottle only. Refer to previous culture for susceptibility. [id number] PRELIMINARY REPORTS Preliminary Report [] Verified Date/Time/Personnel: 02/03/2024 15:59 EDT Culture has been received in lab and is no growth to date. Routine cultures are held for 5 days. STAINS GSANA [] Verified Date/Time/Personnel: 02/05/2024 07:33 EDT Gram Positive Cocci in pairs Performing Locations *1: This test was performed at: [facility], [address] [place] [address], [facility] , Replaced by [facility] ([place])02-05-2024 Infectious disease Consult note Date of Service [...] answered, she was comfortable in bed having [facility] Review of Systems Fatigue at times [...] for SALAZAR evaluation Reported Takotsubo cardiomyopathy 01/2024 [facility] Filiform mobile echodensity on aortic valve, thought [...] ANNE BA, MD on 02/05/2024 05:13 PM [facility]Qgtothph18-33-0169 Palliative care Consult note Date of Service [...] with the patient. She was transferred from [place] for further evaluationfor bacteremia, and consideration of [...] that she has a healthcare power of disability attorney she is named her daughter Stefano. 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 Nuha Curtis MD Bioinformatics Analyst Messenger guille or Pager [phone] Problem List/Past Medical History Ongoing Acquired hypothyroidism [...] CANDIDA CURTIS MD on 02/05/2024 01:36 PM [facility] [id number] History and physical note Date of Service [...] pain, abdominal pain. She was admitted to [facility] On 02/01/2024. Prior to that, [...] self only. Believes that she is in [place] and the year is 2012. Abd: Not [...] NIGHAT OBRIEN MD on 02/05/2024 03:06 AM [facility] HospitalIuzpnflw95-72-1834 Note Discharge Instructions Thank you for allowing [facility] to assist you with your healthcare needs. The following is importantdischarge information regarding your hospital visit. Your Care Team ESTER BEJARANO MSN, PICKING CREW SUPERVISOR Your Diagnosis Bacteremia Hypertension Takotsubo cardiomyopathy Weakness What to do next Scheduled Follow-Up Appointments Appointment Type When Where Contact Information StatusEcho - Echocardiogram Adult 08/21/2024 11:00 AM [facility] Radiology [phone] Confirmed CV OV 09/21/2024 01:15 PM [facility] [place] Confirmed Follow Up Appointments Follow Up with [facility] When:01/10/2024 09:30 AM EDT Where:[address] [address]- Additional Information: This is your post-hospital cardiology [...] to receive it can visit one of [place] vaccine clinics. There are many vaccine clinic locations within the [facility]. For locations and available times, please visit [email or web address]/. It is important to note that some COVID mobile vaccine clinics are held outdoors and may be canceled in rainy or stormy conditions. To learn more about pediatric vaccinations (ages 5-11), we invite you to visit the [facility] webpage. https://www.[facility].org/pages/8917-Gvlzj-Mpcvfamzaty-Ftovkmdptf-Mrhag-Ldr stions.htmlTo learn more about the COVID-19 vaccine, we invite you to visit the CDC website for a list of frequently asked questions.https://www.cdc.gov/coronavirus/2019-ncov/vaccines/faq.html [facility] [employer] Patient Portal Access Instructions: Stay connected with your healthcare team and access your personal medical information anytime with the [employer] Patient Portal. Please follow the directions below to create your [employer] account: 1.Access the email account you provided upon registration to the hospital/physician office.2.Look for an invitation email from [facility].3.Open the email and access the invitation link: AcceptInvitation to [facility] [employer].4.Fill in the required martinez to create your account. To access your account, visit [email or web address]. Click the blue button labeled "Access Patient Portal" and then log in with the username and password that you created in the steps above. You will be able to view your test results, lab results, a summary of your visits, upcoming appointments and more. There is also a convenient messaging option where you can send secure messages to your [employer]. In addition, you will have the ability to download any documents or summaries to your computer and/or send the information securely to a physician. Remember that your healthcare information is confidential, so carefully consider who you will allowto register on the [employer] Patient Portal for access to your information. You can also access the [facility] Patient Portal on the [facility] Trippifiwhere guille. Simply click on "Patient Portal" and then log into your account. If you would like to receive a full copy of your medical records, please contact the [facility] Medical Records Department by calling [phone], Wednesday through Wednesday between 8 a.m. and [...] Call your local pharmacy or go to [email or web address]-On [email or web address] to find one close to you.3.Make use of household items: Use cat litter or old coffee grounds to dispose medications if other options arenot available. Mix your drugs with these household products, seal them in an airtight container andthrow it into the garbage. Call [facility]: [phone] to be sure your drugs can be [...] aware that I should contact my doctor. Patient/Picker/Puller Signature: Date/Time: Relationship to Patient: Witness Name/Signature: Date/Time: [facility] [id number] Note Date of Service 02/04/2024 Chief Complaint bacteremia Subjective Patient seen and evaluated this morning while resting in bed, daughter at the bedside. Patient is now agreeable to transfer to another facility for SALAZAR and possible ID consult. Family requests that [facility] be called first. [facility] states no beds today at all and does not offer optionof going on a list. Family is agreeable to transfer to [facility] but there is quite a wait [...] culture from [facility] grew actinomyces naeslundii. She was treated with [...] to inpatient due to bacteremia.Patient accepted by [facility] and has precert good through 02/07. Continue PT and OT while here. 4. Takotsubo cardiomyopathy Found during recent heart cath at [facility]. She was started on Coreg 3.125 [...] by KUMAR JAMES on 02/04/2024 03:24 PM [facility]06-28-2024 Note. MICRO - Microbiology PROCEDURE: Blood Culture (bacterial) [*1] SOURCE: Blood BODY SITE: COLLECTED DATE/TIME: 02/02/2024 06:25 EDT RECEIVED DATE/TIME: 02/02/2024 17:02 EDT START DATE/TIME: 02/02/2024 17:02 EDT FREE TEXT SOURCE: FINAL REPORTS Final Report [] Verified Date/Time/Personnel: 02/04/2024 11:35 EDT Enterococcus faecalis Isolated from aerobe bottle only. Refer to previous culture for susceptibility. [id number] collected 01-31-24 PRELIMINARY REPORTS Preliminary Report [] [...] Locations *1: This test was performed at: [facility], [address] [place] [address], [facility] , [facility]placed by [facility] ([place]02-03-2024 Note Date of Service 02/03/2024 Chief Complaint [...] what a SALAZAR is and she states "I don't think I want to do that right now." Patient advised that if we identify this [...] culture from [facility] grew actinomyces naeslundii.She was treated with cefdinir. [...] to inpatient due to bacteremia.Patient accepted by [facility] and has precert good through 02/07. Continue PT and OT while here. 4. Takotsubo cardiomyopathy Found during recent heart cath at [facility]. DVT prophylaxiis with Lovenox. Code status: [...] by KUMAR JAMES on 02/03/2024 04:05 PM [facility]06-27-2024 Note. MICRO - Microbiology PROCEDURE: Blood Culture (bacterial) [*1] SOURCE: Blood BODY SITE: Arm L COLLECTED DATE/TIME: 02/01/2024 05:34 EDT RECEIVED DATE/TIME: 02/01/2024 14:42 EDT START DATE/TIME: 02/01/2024 14:42 EDT FREE TEXT SOURCE: FINAL REPORTS Final Report [] Verified Date/Time/Personnel: 02/03/2024 11:26 EDT Enterococcus faecalis Isolated from aerobe and anaerobe bottles. Refer to previous culture for susceptibility. [id number] collected 01-31-24 PRELIMINARY REPORTS Preliminary Report [] Verified Date/Time/Personnel: 02/02/2024 09:02 EDT Enterococcus faecalis Isolated from aerobe and anaerobe bottles. Refer to previous culture for susceptibility. [id number] collected 01-31-24 Final report to follow. Preliminary [...] *1: This test was performed at: [address], [facility] , [facility]placed by [facility] ([place])02-03-2024 Note. MICRO - Microbiology PROCEDURE: Blood Culture (bacterial) [*1] SOURCE: Blood BODY SITE: Arm R COLLECTED DATE/TIME: 02/01/2024 05:34 EDT RECEIVED DATE/TIME: 02/01/2024 14:42 EDT START DATE/TIME: 02/01/2024 14:42 EDT FREE TEXT SOURCE: FINAL REPORTS Final Report [] Verified Date/Time/Personnel: 02/03/2024 11:25 EDT Enterococcus faecalis Isolated from aerobe and anaerobe bottles. Refer to previous culture for susceptibility. [id number] Collected 01-31-24 PRELIMINARY REPORTS Preliminary Report [] [...] Locations *1: This test was performed at: [facility], [address] [place] [address], [facility] , Replaced by [facility] ([place])02-02-2024 Note ORIGINAL EXAMINATION: CT OF THE ABDOMEN [...] Date: 02/02/2024 5:34:24 PM Ordering Provider: KUMAR [facility]06-26-2024 Note Date of Service 02/02/2024 Chief Complaint [...] culture from [facility] grew actinomyces naeslundii. She was treated with [...] to inpatient due to bacteremia.Patient accepted by [facility] and has precert good through 02/07. 4. Takotsubo cardiomyopathy Found during recent heart cath at [facility]. DVT prophylaxiis with Lovenox. Code status: [...] by KUMAR JAMES on 02/02/2024 03:16 PM [facility]06-26-2024 Note. MICRO - Microbiology PROCEDURE: Blood Culture (bacterial) [*1] SOURCE: Blood BODY SITE: Arm R COLLECTED DATE/TIME: 01/31/2024 01:15 EDT RECEIVED DATE/TIME: 01/31/2024 15:05 EDT START DATE/TIME: 01/31/2024 15:05 EDT FREE TEXT SOURCE: FINAL REPORTS Final Report [] Verified Date/Time/Personnel: 02/02/2024 07:29 EDT Enterococcus faecalis Isolated from aerobe and anaerobe bottles. Refer to previous culture for susceptibility. [id number] PRELIMINARY REPORTS Preliminary Report [] Verified Date/Time/Personnel: [...] *1: This test was performed at: [address], [facility] , Replaced by [facility] ([place])02-02-2024 Note. MICRO - Microbiology PROCEDURE: Blood Culture [...] Locations *1: This test was performed at: [facility], [address] [place] [address], [address] , Replaced by [facility] ([place])02-01-2024 Hospital Discharge instructions Follow Up Care 02/01/2024 12:18:47 With:BROOKS OSUNA Address: [address] [address]- When:01/10/2024 09:30:00 Comments:This is your post-hospital cardiology appointment. [facility] 06-25-2024 Note Date of Service 02/01/2024 Chief Complaint Bacteremia History of Present Illness 83-year-old female with past medical history significant for HTN, HLD, hypothyroidism, GERD, PE, NSTEMI, Takotsubo cardiomyopathy (01/2024), aortic stenosis. Patient was originally seen at [facility] on 01/20/2024 where she was diagnosed withan NSTEMI. Patient had cardiac catheterization done with no blockages but was notable for Takotsubocardiomyopathy. Echo showed normal LVEF and moderate aortic stenosis. She was treated for a UTI with cefdinir. She was admitted to [facility] TCU. Her progress has been labile. She [...] subsequently discharged from TCU and admitted to [facility] inpatient. On exam today, pt denies any [...] culture from [facility] grew actinomyces naeslundii. She was treated with [...] Constant Order Digitally Signed by STEFANO GRAHAM on 02/01/2024 02:01 PM [facility]06-25-2024 Note* Exam Date Time Procedure Performing Provider Status 02/01/24 2:01 PM Echocardiogram, Adult - CV Auth (Verified) [facility] 06-25-2024 Evaluation + Plan noteExtracted from: Title:History and Physical Author:STEFANO GRAHAM Date:02/01/24 1. Bacteremia 2. Hypertension 3. Weakness Bacteremia unclear source of infection. Blood cultures grew Enterococcus faecalis. Start ampicillin 2 g every 4 hours x 7 days. Stop date 02/08/2024. Urinalysis that was collected was negative. Urine culture from [facility] grew actinomyces naeslundii. She was treated with [...] Scheduled Provider: Location:[facility] Appointment Type:CV OV [facility] 06-24-2024 Note Date of Service 01/31/2024 Chief Complaint Asthenia Subjective 83-year-old female with past medical history significant for HTN, HLD, hypothyroidism, GERD, PE, NSTEMI, Takotsubo cardiomyopathy (01/2024), aortic stenosis. Patient was originally seen at [facility] on 01/20/2024 for increasing weakness. Shewas having [...] for SNF. She was subsequently admitted to [facility] TCU. Initially patient was struggling with progressing [...] tablet 88 mcg 1 tab(s), Oral, Mon//Wed//Wed/Sat lidocaine patch REMOVAL 1 EA, Miscellaneous, q24h [...] expressed to multiplestaff members that she is "done". Patient would like to have a consultation [...] may include grammatical and/or spelling errors. CPT: 36532 Anticipated Date of Discharge Within 5 days Time Spent 20 minutes Digitally Signed by STEFANO GRAHAM on 01/31/2024 03:23 PM [facility]06-24-2024 Nurse Progress note pt refusing 2 am labs at this time. community health program representative aware and will attempt to collect later in am. Digitally Signed by MICH Squires on 01/31/2024 03:19 AM [facility]06-24-2024 Note ORIGINAL EXAMINATION: TWO XRAY VIEWS OF [...] Date: 01/31/2024 12:50:22 AM Ordering Provider: MALGORZATA [facility]06-22-2024 Nurse Progress note Pt has not voided since beginning of shift and has attempt to go on bedpan twice. Bladder scan doneshowing 593mL. Pt straight cathed per standing order and 400mL emptied from bladder. Urine clear and yellow. REBECCA Olivas notified. Pt denies discomfort other than "usual arthritis". PRN tylenol administered. Digitally Signed by Allison Angela RN on 01/29/2024 02:54 PM [facility]06-22-2024 Nurse Progress note Therapy reported pt leaning to R side and back when attempting to sit on edge of bed. Assisted pt back to laying position. Pt reports feeling "like I was drunk"/lightheaded. Pt states she is not currently having [...] butat times does require 2 assist or berezy steady. Digitally Signed by Allison Angela RN on 01/29/2024 01:40 PM [facility]06-21-2024 Note Date of Service 01/28/2024 Chief Complaint Asthenia Subjective 83-year-old female with past medical history significant for HTN, HLD, hypothyroidism, GERD, PE, NSTEMI, Takotsubo cardiomyopathy (01/2024), aortic stenosis. Patient was originally seen at [facility] on 01/20/2024 for increasing weakness. Shewas having [...] for SNF. She was subsequently admitted to [facility] TCU. Initially patient was struggling with progressing [...] may include grammatical and/or spelling errors. CPT: 58892 Anticipated Date of Discharge 02/03 Time Spent 20 minutes Digitally Signed by STEFANO GRAHAM on 01/28/2024 12:03 PM [facility]06-16-2024 Evaluation + Plan noteExtracted from: Title:History and Physical Author:KUMAR JAMES Date:01/23/24 1. Asthenia Consult placed to PT and OT to evaluate and treat - following. services rep following for discharge planning needs. 2. Takotsubo [...] collaborating with physician, and documenting in chart. CPT#05169 Future Appointments Appointment Date:08/21/2024 11:00:00 AM Scheduled Provider: Location:[facility] Appointment Type:Echo - Echocardiogram Adult Appointment Date:09/21/2024 01:15:00 PM Scheduled Provider: Location:[facility] Appointment Type:CV OV [facility] 06-16-2024 Note Date of Service 01/23/2024 Chief Complaint weakness History of Present Illness Patient is an 83-year-old female, who follows with Ester SÁNCHEZ with a past medical history significant for hypertension, hypothyroidism, hiatal hernia and GERD, presents to [facility] transitional care program for rehab before returning home. Patient was admitted to [facility] on 01/19 due to increased weakness at home. Patient was just in the TCU here at [facility] from 11/26-12/10 for rehab following a hospitalization at [facility]. She stated on admission that she [...] ST changes. Patient was taken to the tender labor from ED. The cardiac catheterization demonstrated no [...] OT to evaluate and treat - following. services rep following for discharge planning needs. 2. Takotsubo [...] collaborating with physician, and documenting in chart. CPT#53764 Problem List/Past Medical History Ongoing Acquired hypothyroidism [...] Constant Order Digitally Signed by KUMAR JAMES APRN-RESEARCH EPIDEMIOLOGIST on 01/23/2024 02:32 PM Digitally Signed by KUMAR JAMES on 01/23/2024 02:37 PM [facility]06-15-2024 Hospital Discharge instructions Follow Up Care 01/22/2024 13:08:57 With:BROOKS OSUNA Address: [facility] [address] [place] [address]- When:02/09/2024 09:30:00 Comments:This is your cardiology post-hospital appointment. It is with Dr. Anderson's physician shampoo assistant. The office is inside [facility]. With:ESTER BEJARANO, PICKING CREW SUPERVISOR Address: [address] [address]- When: Unknown [facility] 06-15-2024 [facility] Medical Records Department [address] [place] [id number] Discharge Summary 01/22/24 1353 MR#: [id number] Acct: [id number] Name: STEFANO WASHINGTON Rep #: [id number] : 1940 83 From: Marilee Avitia MD PCP: Dr. Carl Encarnacion MD Status:ADM IN [id number] Prov[facility] Date of Admission: 01/20/24 Date of Discharge: 01/22/24 Primary Care Physician: Dr. Carl Encarnacion MD Consultations 01/20/24 14:39 Consult: Cardiology Routine Consulting Provider: Hector Anderson Reason for Consult: Chest Pain EMERGENT Consult: No MD Notified: Yes Date Notified: 01/20/24 Time Notified: 14:39 Method of Notification: ED Physician Initiated Reason For Visit: WEAKNESS Diagnosis Discharge Diagnosis (1) Non-ST elevation [place] (NSTEMI): Status: Acute Code(s): I21.4 - Non-ST elevation (NSTEMI) myocardial infarction Plan #Nonstemi * admitted with a complaint of increased weakness and lethargy * on admission, initial troponin was 3264. Troponin trended down to 2756. * She was taken to the tender labor which showed nonobstructive coronary arteries and evidence [...] in the ED were BP of 103/53, UT of 95, RR of 18 and oxygen sats of 94% on room air. CBC showed hemoglobin of 9.5 with WBC of 7.6 and platelets of 257. Chemistry showed sodium of 135, potassium of 3.8 and Cr of 0.66. Initial troponin was 3264. EKG showed no acute ST changes. She is being admitted to be managed for nonstemi. She was taken to the tender labor from the ED. Cardiac cath showed evidence of Takotsubo cardiomyopathy and showed nonobstructive coronaries. Nifedipine was discontinued and patient was placed on carvedilol. Her hospital course was uncomplicated. Patient was however too weak to go home and did not do very well with therapy. She was therefore amenable to placement. Pre-CERT was obtained and patient was discharged to custodial facility on 01/22/2024. She is follow-up with [...] distress General Appearance: c (more content not included)...[facility]20-2024 [facility] History of Present illness Narrative* Nicky Paz LPN - 01/20/2024 6:31 PM EDT Scan on 01/20/2024 4:13 PM by ProviderLizandro PA-C Scan on 01/20/2024 3:44 PM by Provider, SHANELLE Bone: Consultation - Emergency Medicine Scan on 01/20/2024 2:21 PM by ProviderLizandro PA-C: Miscellaneous Cardiac documented in this encounterOhio[facility]06-[facility]-2024 Telephone encounter Note * Telephone Encounter - Carl Encarnacion MD - 01/11/2024 4:46 PM EDT Noted. [facility]06-04-2024 Miscellaneous Notes* Telephone Encounter - Carl Encarnacion MD - 01/11/2024 4:46 PM EDT Noted. * Telephone Encounter - Ana Parish LPN - 01/11/2024 4:05 PM EDT Jonathan with [facility] calls to report pt was discharged from PT today. Jonathan reports pt has made good progress and pt said she is done with PT. Ana Parish LPN documented in this encounterOhiohealth [facility]06-04-2024 Telephone encounter Note * Telephone Encounter - Ana Parish LPN - 01/11/2024 4:05 PM EDT Jonathan with [facility] calls to report pt was discharged from PT today. Jonathan reports pt has made good progress and pt said she is done with PT. Ana Parish LPN [facility]05-31-2024 Telephone encounter Note* Telephone Encounter - Yancy Wetzel RN - 01/07/2024 4:38 PM EDT Call placed to daughter and notified of below message. Stefano verbalizes understanding. Yancy Wetzel RN [facility]05-31-2024 Miscellaneous Notes* Telephone Encounter - Yancy Wetzel RN - 01/07/2024 4:38 PM EDT Call placed to daughter and notified of below message. Stefano verbalizes understanding. Yancy Wetzel RN * Telephone Encounter - Ester Bejarano APRN.CNS [...] calls to report that patient is feeling "loopy" from the antibiotic that she is currently [...] previous ATB was. Requesting prescription go to [facility]. Please review and advise, Yancy Wetzel RN documented in this encounterOhiohealth [facility] Hospital05-31-2024 Telephone encounter Note * Telephone Encounter [...] Bactrim with a full glass of water. [facility]05-31-2024 Telephone encounter Note* Telephone Encounter - Yancy Wetzel RN - 01/07/2024 4:13 PM EDT Daughter calls to report that patient is feeling "loopy" from the antibiotic that she is currently [...] previous ATB was. Requesting prescription go to [facility]. Please review and advise, Yancy Wetzel RN [facility]05-30-2024 Telephone encounter Note* Telephone Encounter - Carl Encarnacion MD - 01/06/2024 6:15 PM EDT Info noted. Patient has been on the tramadol for several years and the last script for compazine was back in 05/2023 per oncology. [facility]05-30-2024 Miscellaneous Notes* Telephone Encounter - Carl Encarnacion MD - 01/06/2024 6:15 PM EDT Info noted. Patient has been on the tramadol for several years and the last script for compazine was back in 05/2023 per oncology. * Telephone Encounter - Angeline Robbins RN - 01/06/2024 3:36 PM EDT Zabrina from [facility] calls and reports that patient is being discharged from OT services due to patient meeting goals. Zabrina also notes that patient's prn prochlorperazine does have an interaction with Tramadol. Patientreports that she does not take prochlorperazine often. Angeline Robbins RN documented in this encounterOhiohealth [facility] Hospital05-30-2024 Telephone encounter Note * Telephone Encounter - Angeline Robbins RN - 01/06/2024 3:36 PM EDT Zabrina from [facility] calls and reports that patient is being discharged from OT services due to patient meeting goals. Zabrina also notes that patient's prn prochlorperazine does have an interaction with Tramadol. Patientreports that she does not take prochlorperazine often. Angeline Robbins RN [facility]05-30-2024 Telephone encounter Note* Telephone Encounter - Kumar Cooley MA - 01/06/2024 10:12 AM EDT Patient was made aware of the results. Patient verbalizes understanding. Kumar Cooley Ma [facility]05-30-2024 Miscellaneous Notes* Telephone Encounter - Kumar Cooley MA - 01/06/2024 10:12 AM EDT Patient was made aware of the results. Patient verbalizes understanding. Kumar Cooley Ma * Telephone Encounter - Ester Bejarano APRN.CNS - 01/06/2024 9:43 AM EDT Please let patient know that she does have a E. coli infection in her urine. I am calling in Cipro twice daily for 7 days. Repeat urinalysis once antibiotic is completed. * Telephone Encounter - Izzy Duarte LPN - 01/06/2024 9:19 AM EDT Daughter calling for results of pt's UA. Please advise, Pharmacy updated. Izzy Duarte LPN documented in this encounterOhiohealth [facility]05-30-2024 Telephone encounter Note * Telephone Encounter - Ester Bejarano APRN.PRINCESS - 01/06/2024 9:43 AM EDT Please let patient know that she does have a E. coli infection in her urine. I am calling in [employer]ro twice daily for 7 days. Repeat urinalysis once antibiotic is completed. [facility]05-30-2024 Telephone encounter Note* Telephone Encounter - Izzy Duarte LPN - 01/06/2024 9:19 AM EDT Daughter calling for results of pt's UA. Please advise, Pharmacy updated. Izzy Duarte LPN [facility]05-28-2024 Telephone encounter Note* Telephone Encounter - [...] Please advise. Thank you. Ana Parish LPN. T [facility]05-28-2024 Miscellaneous Notes* Telephone Encounter - Ana [...] primary care: 02/17/2024 Please advise. Thank you. nAa Parish LPN. documented in this encounterOhiohealth Marion General Hospital05-18-2024 [facility]05-18-2024 History of Present illness Narrative* Carl Encarnacion MD - 12/25/2023 11:20 AM EDT Patient's home health 485 form / care plan for certification period 12/14/2023 to 02/11/2024 reviewed and signed. Relevant medical records were reviewed. No changes were indicated documented in this encounterOhiohealth Marion [facility] Hospital05-14-2024 NoteHNO ID: [id number] Author: ZABRINA CHAVEZ LPN Service: ? Author Type: LICENSED NURSE Type: Progress Notes Filed: 12/21/2023 14:07 Note Text: Scan on 12/21/2023 10:35 AM by ProviderLizandro PAAlishaC: Discharge Summary MANNIE EnriquezOhio[facility]-14-20[facility] History of Present illness Narrative* Zabrina Chavez LPN - 12/21/2023 2:07 PM EDT Scan on 12/21/2023 10:35 AM by ProviderLizandro PA-C: Discharge Summary Zabrina Chavez LPN documented in this encounterOhiohealth [facility] Hospital05-09-2024 Telephone encounter Note * Telephone Encounter - Dannielle Tam MA - 12/16/2023 3:43 PM EDT Patient informed and verbalized understanding. Dannielle Tam MA [facility]05-09-2024 Miscellaneous Notes* Telephone Encounter - Dannielle [...] she finishes her antibiotic. documented in this encounterOhiohealth Marion [facility] Hospital05-09-2024 Telephone encounter Note * Telephone Encounter [...] recheck urinalysis when she finishes her antibiotic. [facility]05-08-2024 Telephone encounter Note* Telephone Encounter - Keily Rico MA - 12/15/2023 4:27 PM EDT Left detailed message. Keily Rico MA [facility]05-08-2024 Miscellaneous Notes* Telephone Encounter - Keily Rico MA - 12/15/2023 4:27 PM EDT Left detailed message. Keily Rico MA * Telephone Encounter - Carl Encarnacion MD - 12/15/2023 4:24 PM EDT Yes I'm ok with the additional 3 visits. * Telephone Encounter - Gina Curiel LPN - 12/15/2023 12:27 PM EDT Kelsie from [facility] calling verbal ok for 3 additional visits for OT. They plan to see patient 1 time a week for 3 weeks. Please advise. documented in this encounterOhiohealth [facility] Hospital05-08-2024 Telephone encounter Note * Telephone Encounter - Carl Encarnacion MD - 12/15/2023 4:24 PM EDT Yes I'm ok with the additional 3 visits. [facility]05-08-2024 Telephone encounter Note* Telephone Encounter - Gian Curiel LPN - 12/15/2023 12:27 PM EDT Kelsie from [facility] calling verbal ok for 3 additional visits for OT. They plan to see patient 1 time a week for 3 weeks. Please advise. [facility]05-07-2024 Telephone encounter Note* Telephone Encounter - Carl Encarnacion MD - 12/14/2023 3:30 PM EDT Noted. Med list updated. [facility]05-07-2024 Miscellaneous Notes* Telephone Encounter - Carl Encarnacion MD - 12/14/2023 3:30 PM EDT Noted. Med list updated. * Telephone Encounter - Nori Krueger RN - 12/14/2023 2:22 PM EDT Jonathan- PT- [facility]- reports he saw patient today for start of care, and will continue to see patient for 7 more visits. Reports patient was in [facility], then transferred to [facility], then discharged to home on 12-11-23. Jonathan [...] relief (mucinex) medication prn. documented in this encounterOhiohealth Marion [facility] Hospital05-07-2024 Telephone encounter Note * Telephone Encounter - Nori Krueger RN - 12/14/2023 2:22 PM EDT Jonathan- PT- [facility]- reports he saw patient today for start of care, and will continue to see patient for 7 more visits. Reports patient was in [facility], then transferred to [facility], then discharged to home on 12-11-23. Jonathan [...] takes a mucous relief (mucinex) medication prn. [facility]05-06-2024 Note* Addendum Note - Ester Bejarano APRN.CNS - 12/13/2023 1:45 PM EDTAddended by: ESTER BEJARANO on: 12/13/2023 01:45 PM Modules accepted: Orders [facility]05-06-2024 Miscellaneous Notes* Addendum Note - Ester Bejarano APRN.CNS - 12/13/2023 1:45 PM EDTAddended by: ESTER BEJARANO on: 12/13/2023 01:45 PM Modules accepted: Orders documented in this encounterOhiohealth [facility] Hospital05-06-2024 Instructions* Patient Instructions* Ester Bejarano APRN.CNS - 12/13/2023 1:15 PM EDT 1) Get urine culture 2) Handicapped placard for 5 years 3) Keep appointment February 16 as scheduled documented in this encounterOhiohealth Marion [facility] Hospital05-06-2024 History of Present illness Narrative* Ester [...] 03/2023: bilaterally Ovarian cancer (HCC) 05/17/2023 Seeing aligner typewriter Pneumonia due to COVID-19 virus 05/07/2021 04/27/2021 [...] as needed for worsening/no improvement. Ester Bejarano APRN.PICKING CREW SUPERVISOR documented in this encounterChristine Ville [address]-06-2024 NoteSelect Medical [facility]05-06-2024 Telephone encounter Note* Telephone Encounter - Sruthi Pisano MA - 12/13/2023 11:49 AM EDT Yuri was notified Sruthi Pisano MA [facility]05-06-2024 Miscellaneous Notes* Telephone Encounter - Sruthi Pisano MA - 12/13/2023 11:49 AM EDT Yuri was notified Sruthi Pisano MA * Telephone Encounter - Carl Encarnacion MD - 12/13/2023 10:53 AM EDT I will follow for HHC orders. The F2f report needs signed by the provider who placed the order to consult [facility] for PHYSICAL THERAPY and OT at [facility]. * Telephone Encounter - Izzy Duarte LPN - 12/13/2023 9:10 AM EDT Yuri with [facility] calling to let you know pt is went home from [facility] over the weekend and pt has been referred to [facility] for PT and OT. DX: had a fall and was admitted for rhabdomyolysis. Please call with verbal orders that you will follow and sign for Home Care. Izzy Duarte LPN documented in this encounterOhiohealth [facility]05-06-2024 Telephone encounter Note * Telephone Encounter - Carl Encarnacion MD - 12/13/2023 10:53 AM EDT I will follow for HHC orders. The F2f report needs signed by the provider who placed the order to consult [facility] for PHYSICAL THERAPY and OT at [facility]. [facility]05-06-2024 Telephone encounter Note* Telephone Encounter - Izzy Duarte LPN - 12/13/2023 9:10 AM EDT Yuri with [facility] calling to let you know pt is went home from [facility] over the weekend and pt has been referred to [facility] for PT and OT. DX: had a fall and was admitted for rhabdomyolysis. Please call with verbal orders that you will follow and sign for Home Care. Izzy Duarte LPN [facility]05-04-2024 Nurse Discharge summary discharge instructions reviewed with daughter and pt, verbalized understanding, no questions at this time pt escorted out to private vehicle via [facility]05-04-2024 Note Discharge Instructions Thank you for allowing [facility] to assist you with your healthcare needs. The following is importantdischarge information regarding your hospital visit. Your Care Team ESTER BEJARANO, PICKING CREW SUPERVISOR Your Diagnosis Acquired hypothyroidism Asthenia Benign hypertension Fever Gastro-esophageal reflux Rash What to do next Instructions From Your Doctor You were admitted to [facility] for [facility] after a hospital stay at [facility]. You have progressed well with therapy and they feel that you are ready to transition back home. Our delinquency prevention social worker has arranged for home health PT and OT to take over and see you in your home. We made no changes to your medications and you stated that you did not need any refills. Our delinquency prevention social worker set-up an appointment with your PCP for next week. The date and time are on your discharge instructions. If you have any new or worsening problems, please contact your PCP or return to the ED. We wish you the best as you discharge home today. Thank you for using [facility] transitional [facility] for your rehab needs! Scheduled Follow-Up Appointments Appointment Type When Where Contact [facility] - Echocardiogram Adult 08/21/2024 11:00 AM EST [facility] [phone] CV OV 09/21/2024 01:15 PM [facility] [place] Follow Up Appointments Follow Up with [facility] When 12/13/2023 11:00 AM EDT Why: This is your PCP appointment. It will be with the nurse practitioner, Ester Bejarano. Follow-up as scheduled. Where: [address] [place] [address] [phone] The Following Activity and Diet Have Been [...] Consider working with a physical therapist or ehr trainer who can develop an exercise plan to help you gain muscle strength. General instructions Take dcjy-fqa-kqeiita and prescription medicines only as told by [...] 07/26/2006 Document Revised: 03/01/2019 Document Reviewed: 03/01/2019 [employer] Patient Education 2020 [employer] Additional Information VACCINATE! IT SAVES LIVES! Members of the community who have not yet received the COVID-19 vaccine and would like to receive it can visit one of [place] vaccine clinics. There are many vaccine clinic locations within the [facility]. For locations and available times, please visit https://gettheshot.coronavirus.[place].gov/. It is important to note that some COVID mobile vaccine clinics are held outdoors and may be canceled in rainy or stormy conditions. To learn more about pediatric vaccinations (ages 5-11), we invite you to visit the [facility] webpage. https://www.[facility].org/pages/8980-Nqvah-Wtmsbqpxiag-Gosixholrt-Ztztf-Iuf stions.htmlTo learn more about the COVID-19 vaccine, we invite you to visit the CDC website for a list of frequently asked questions.https://www.cdc.gov/coronavirus/2019-ncov/vaccines/faq.html [facility] [employer] Patient Portal Access Instructions: Stay connected with your healthcare team and access your personal medical information anytime with the [facility] [employer] Patient Portal. Please follow the directions below to create your [employer] account: 1.Access the email account you provided upon registration to the hospital/physician office.2.Look for an invitation email from [facility].3.Open the email and access the invitation link: AcceptInvitation to [facility].4.Fill in the required martinez to create your account. To access your account, visit [email or web address]. Click the blue button labeled "Access Patient Portal" and then log in with the username [...] who you will allowto register on the [facility] Patient Portal for access to your information. You can also access the [facility] Patient Portal on the [facility] guille. Simply click on "Patient Portal" and then log into your account. If you would like to receive a full copy of your medical records, please contact the [facility] Medical Records Department by calling [phone], Wednesday through Wednesday between 8 a.m. and [...] Call your local pharmacy or go to http://bit.H[employer] Mobile/0I7Sk1x to find one close to you.3.Make use of household items: Use cat litter or old coffee grounds to dispose medications if other options arenot available. Mix your drugs with these household products, seal them in an airtight container andthrow it into the garbage. Call [facility]: [phone] to be sure your drugs can be [...] reviewed and explained to me and I,STEFANO WASHINGTONd my current condition and have read and understand these discharge instructions. I have received a written copy of the plan/instructions. If I have questions, I am aware that I should contact my doctor. Patient/Picker/Puller Signature: Date/Time: Relationship to Patient: Witness Name/Signature: Date/Time: [facility]05-04-2024 Hospital Discharge instructions Patient Education 12/11/2023 08:02:58 [...] Consider working with a physical therapist or ehr trainer who can develop an exercise plan to help you gain muscle strength. General instructions Take ceyn-ceu-hyihqyb and prescription medicines only as told by [...] 07/26/2006 Document Revised: 03/01/2019 Document Reviewed: 03/01/2019 [employer] Patient Education 2020 [employer]. Follow Up Care 11/26/2023 15:27:14 With:[facility] Address: [address] [place] [address] [place] [address]- [phone] When:12/13/2023 11:00:00 Comments:This is your PCP appointment. It will be with the nurse practitioner, Ester Bejarano. Follow-up as scheduled. [facility] 04-29-2024 Note Date of Service 12/06/2023 Chief Complaint Asthenia Subjective 83-year-old female with past medical history significant for HTN, HLD, hypothyroidism, GERD, PE. Patient presented to [facility] on 11/23/2023 after sustaining a fall at home. She was treated for rhabdomyolysis and UTI. She was initially treated with ceftriaxone and then transition to Keflex. She was evaluated by therapy services with recommendation for SNF. She was subsequently admitted to [facility] TCU. 12/01 therapy reported that patient has [...] may include grammatical and/or spelling errors. CPT: 09187 Anticipated Date of Discharge 12/09 Time Spent 22 minutes Digitally Signed by STEFANO GRAHAM on 12/06/2023 11:26 AM [facility]04-29-2024 Telephone encounter Note* Telephone Encounter - Kristen Eugene PA-C - 12/06/2023 10:21 AM EDT The following approved medication requests have been transmitted electronically. Requested Prescriptions Signed Prescriptions Disp Refills traMADol (ULTRAM) 50 mg tablet 60 tablet 0 Sig: Take 1 tablet by mouth two times a day for 30 days. for arthritis pain. Authorizing Provider: KRISTEN EUGENE PA-C [facility]04-29-2024 Miscellaneous Notes* Telephone Encounter - Kristen Eugene PA-C - 12/06/2023 10:21 AM EDT The following approved medication requests have been transmitted electronically. Requested Prescriptions Signed Prescriptions Disp Refills traMADol (ULTRAM) 50 mg tablet 60 tablet 0 Sig: Take 1 tablet by mouth two times a day for 30 days. for arthritis pain. Authorizing Provider: KRISTEN EUGENE PA-C * Telephone Encounter - [place] Trina Estrada - 12/06/2023 8:03 AM EDT [...] Thank you. Trina Estrada. documented in this encounterOhio[facility] Telephone encounter Note * Telephone Encounter - [place] Trina Estrada - 12/06/2023 8:03 AM EDT [...] 02/17/2024 Please advise. Thank you. Trina Estrada. [facility]04-26-2024 Note Date of Service 12/03/23 Chief Complaint Asthenia Subjective 83-year-old female with past medical history significant for HTN, HLD, hypothyroidism, GERD, PE. Patient presented to [facility] on 11/23/2023 after sustaining a fall at home. She was treated for rhabdomyolysis and UTI. She was initially treated with ceftriaxone and then transition to Keflex. She was evaluated by therapy services with recommendation for SNF. She was subsequently admitted to [facility] TCU. 12/01 therapy reported that patient has [...] and may include grammatical and/or spelling errors. 61891 Anticipated Date of Discharge 12/16 Time Spent 30 minutes Digitally Signed by STEFANO GRAHAM on 12/03/2023 11:27 AM [facility]04-26-2024 HCoV 229E RNA FAUSTO+non-probe Ql (Nph) Not Detected *NA* (12/03/23 8:03 AM)[facility] [employer]Sero [id number] Note Date of Service 12/01/2023 Chief Complaint [...] OT to evaluate and treat - following. services rep following for discharge planning. 2. Benign hypertension [...] patient, discussed plan of care with nursing, psychologist social and therapy, collaborating with physician, and documenting in chart. CPT#20553 Digitally Signed by KUMAR JAMES on 12/01/2023 07:37 PM [facility]04-20-2024 Note Date of Service 11/27/2023 Chief Complaint weakness History of Present Illness Patient is an 83-year-old female, who follows with Dr. Ministerio Crabtree with a past medical history significant for hypertension, hyperlipidemia, hypothyroidism, GERD and PE, presented to [facility] on 11/23/2023 after sustaining a fall at [...] by insurance and arrived last evening for [facility] transitional care program. Patient was seen this morning while resting in her chair. She states that she is doing well and denies any new complaints. She continues to have pain in her left lower extremity when she bears weight. She states that her leg was imaged at [facility] and was negative for an acute fracture. Introduced self and role of hospitalist SUPERVISOR SPRING UP in her care while in the TCU. [...] PT and OT to evaluate and treat. services rep following for discharge planning. 2. Benign hypertension [...] patient, discussed plan of care with nursing, psychologist social and therapy, collaborating with physician, and documenting in chart. CPT#64121 Problem List/Past Medical History Ongoing Acquired hypothyroidism [...] by KUMAR JAMES on 11/27/2023 02:00 PM [facility]04-20-2024 Evaluation + Plan noteExtracted from: Title:History and Physical Author:KUMAR JAMES APRN-KACI Date:11/27/23 1. Asthenia Acute, secondary to UTI and hospitalization. Consult placed to PT and OT to evaluate and treat. services rep following for discharge planning. 2. Benign hypertension [...] patient, discussed plan of care with nursing, psychologist social and therapy, collaborating with physician, and documenting in chart. CPT#07151 Future Appointments Appointment Date:08/21/2024 11:00:00 AM Scheduled Provider: Location:[facility] Appointment Type:Echo - Echocardiogram Adult Appointment Date:09/21/2024 01:15:00 PM Scheduled Provider: Location:[facility] Appointment Type:CV OV [facility] 04-19-2024 Consult note Author Dalila [facility] November 26, 2023 2:23pm Note Date/Time November 26, 2023 2:2 3pm [facility] Medical Records Department [address] [place] [address] Counseling Note - Pharmacy 11/26/23 1422 MR#: [id number] Acct: [id number] Name: STEFANO WASHINGTON Rep #:[id number] : 1940 83 From: Dalila Biswas PCP: Dr. Carl Encarnacion MD Status:ADM IN [facility] Med Reconciliation Pharmacy Service has performed discharge [...] Signature (if applicable): Date CC: ~ Signed [facility] Work Phone: 1(365) 549-593304-19-2024 Discharge summary Author Kelby Aguilar [facility] November 26, 2023 1:50pm Note Date/Time November 26, 2023 1:5 0pm [facility] Medical Records Department [address] [place] [address] Discharge Summary 11/26/23 1349 MR#: [id number] Acct: [id number] Name: STEFANO WASHINGTON Rep #:[id number] : 1940 83 From: Kelby saldaña DO PCP: Dr. Carl Encarnacion MD Status:ADM IN [facility] Prov[facility] Date of Admission: 11/23/23 Date of [...] Patient is an 83-year-old female who presented [facility] ED on 11/23/2023 after a fall at [...] in before D/C Order can be placed): Assisted Facility Charges/Coding Visit Charges Inpatient E&M: 18557 Disch Hosp >30min 11/26/23 1350 <Electronically signed by Kelby Aguilar DO> Cosigner Signature (if applicable): CC: Dr. Kelby Aguilar DO; Dr. Carl Encarnacion MD~ Signed [facility] Work Phone: 1(855) 585-517904-19-2024 Discharge summary Author Kelby Aguilar [facility] November 26, 2023 1:49pm Note Date/Time November 26, 2023 1:4 7pm [facility] Medical Records Department [address] [place] [address] Transfer to [facility] MR#: [id number] Acct: [id number] Name: STEFANO WASHINGTON Rep #:[id number] : 1940 83 From: Kelby saldaña DO PCP: Dr. Cral Encarnacion MD Status:ADM IN Certification of patient admission REQUIRED AT TIME OF ADMISSION. I CERTIFY THAT POST-HOSPITAL ECF SERVICES ARE REQUIRED TO BE GIVEN ON AN IN-PATIENT BASIS BECAUSE OF THE ABOVE NAMED PATIENT'S NEED FOR ALF CARE ON A CONTINUING BASIS FOR THE CONDITION(S) FOR WHICH HE/SHE WAS RECEIVING IN-PATIENT HOSPITAL SERVICES PRIOR TO HIS/HER TRANSFER TO THE [facility]. 11/26/23 1349<Electronically signed by Kelby Aguilar DO> [...] Patient is an 83-year-old female who presented [facility] ED on 11/23/2023 after a fall at [...] in before D/C Order can be placed): Assisted Facility 11/26/23 1349 <Electronically signed by Kelby Aguilar DO> Cosigner Signature (if applicable): CC: Dr. Carl Encarnacion MD ~ [facility] Work Phone: 1(930) 651-188804-19-2024 Progress note Author Kelby [facility] November 26, 2023 11:44am Note Date/Time November 26, 2023 11: 44am [facility] Medical Records Department [address] [place] [address] Progress Note - Hospitalist 11/26/23 1141 MR#: [id number] Acct: [id number] Name: STEFAON WASHINGTON Rep #:[id number] : 1940 83 From: Kelby saldaña DO PCP: Dr. Carl Encarnacion MD Status:ADM IN [facility] Reason for Visit Reason for Visit: Diagnoses [...] concerns this morning. Had been told by manager rn case that [facility] rehab had accepted her and she was just awaiting bed placement, andshe and family were pleased by this. Objective Data Objective Data Vital Signs: Vital Signs Temp Pulse Resp BP Pulse Ox O2 Del Method 98 F 90 18 126/64 H 95 Room Air 04/19/24 10:41 11/26/23 10:41 11/26/23 10:41 11/26/23 10:41 [...] Patient is an 83-year-old female who presented [facility] ED on 11/23/2023 after a fall at [...] following. Accepted to an hospital rehab at [facility], awaiting bed placement. Medically stable for discharge [...] 35 minutes. Charges/Coding Visit Charges Inpatient E&M: 19047 Subs Hosp L2 11/26/23 1144 <Electronically signed by Kelby Aguilar DO> Cosigner Signature (if applicable): CC: ~ Signed [facility] Work Phone: 1(608) 836-789004-18-2024 Progress note Author Kelby [facility] November 25, 2023 2:47pm Note Date/Time November 25, 2023 12: 24pm [facility] Medical Records Department [address] [place] [address] Progress Note - Hospitalist 11/25/23 1224 MR#: [id number] Acct: [id number] Name: STEFANO WASHINGTON Rep #:[id number] : 1940 83 From: Kelby saldaña DO PCP: Dr. Carl Encarnacion MD Status:ADM IN [address]: [address] Reason for Visit Reason for Visit: Diagnoses Rhabdomyolysis (11/23/23) Urinary tract infection, site not specified (11/23/23) Weakness (11/23/23) Unspecified fall, initial encounter (11/23/23) Subjective Subjective No acute events overnight. Patient seen at bedside this morning, manager rn case also present at bedside. Patient had fairly poor therapy scores yesterday and recommendation was for SNF on discharge. Unfortunately, manager rn case told patient and family this morning that TCU was not able to accept her. Patient and family were okay with referrals being sent to [facility] in-hospital rehab facilities instead. Patient states [...] Patient is an 83-year-old female who presented [facility] ED on 11/23/2023 after a fall at [...] patientwould be a better candidate for a custodial facility on discharge as opposed to home health care. TCU not able to accept patient, referrals sent to [facility] in [place] and hospital rehab facilities and are pending. Patient is [...] 35 minutes. Charges/Coding Visit Charges Inpatient E&M: 73502 Subs Hosp L2 11/25/23 1447 <Electronically signed by Kelby Aguilar DO> Cosigner Signature (if applicable): CC: ~ Signed [facility] Work Phone: 1(385) 609-306404-17-2024 Progress note Author Kelby Aguilar [facility] November 24, 2023 3:43pm Note Date/Time November 24, 2023 10: 18am [facility] Medical Records Department [address] [place] [address] Progress Note - Hospitalist 11/24/23 1018 MR#: [id number] Acct: [id number] Name: STEFANO WASHINGTON Rep #:[id number] : 1940 83 From: Kelby saldaña DO PCP: Dr. Carl Encarnacion MD Status:ADM IN Location: [place] [address]-1 Reason for Visit Reason for Visit: Diagnoses [...] and Output for Last 24 Hours 11/22/23 11/23/2324 23:59 23:59 23:59 Intake Total 2400 / [...] Clear Calc 48.91, Est GFR (MDRD) Af Nves352, Est GFR (MDRD) Non-Af 105, BUN/Creatinine Ratio [...] Patient is an 83-year-old female who presented [facility] ED on 11/23/2023 after a fall at [...] would be a better candidate for a custodial facility on discharge as opposed to home [...] 35 minutes. Charges/Coding Visit Charges Inpatient E&M: 21738 Subs Hosp L2 11/24/23 1543 <Electronically signed by Kelby Aguilar DO> Cosigner Signature (if applicable): CC: ~ Signed [facility] Work Phone: 1(146) 545-157504-17-2024 [facility]Select [facility] History of Present illness Narrative* Keily Rico MA - 11/24/2023 3:20 PM EDT Scan on 11/23/2023 2:46 PM by ProviderLizandro PA-C: Consultation - Emergency Medicine Scan on 11/23/2023 3:47 PM by Provider, Lizandro, PA-C: Consultation - Emergency Medicine Patient admitted 11/23/2023 Keily Rico MA documented in this encounterOhiohealth [facility]04-16-2024 Discharge summary Author Smith Ho [facility] November 23, 2023 3:37pm Note Date/Time November 23, 2023 8:4 2am [facility] Medical Records Department [address] [place] [address] Emergency Department Summary 11/23/23 MR#: [id number] Acct: [id number] Name: STEFANO WASHINGTON Rep #:[id number] : 1940 83 From: Smith Ho MD PCP: Dr. Carl Encarnacion MD Status:ADM IN Location: [address] History of Present Illness Chief Complaint: General [...] No shortening or rotation. 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 She is able to [...] 77.0 H Lymph % (Auto) 12.9 L Crook % (Auto) 9.0 Eos % (Auto) 0.1 [...] Clarity Cloudy Urine pH 6.0 Ur Specific Holcomb 1.010 Urine Protein 30 H Urine Glucose [...] rhythm rate 100 no acute signs of [place] or ischemia. Right bundle branch block. Discharge Plan Dx/Rx/DC Orders Clinical Impression: Urinary tract infection, Generalized weakness, Rhabdomyolysis, Fall Disposition Disposition: Acute Care Hospital [facility] What to do if you have Problems For any increased pain, shortness of breath, bleeding, nausea or vomiting, chestpain, or any unexpected problems, contact your Primary Care Provider. Call [facility] ([phone]) or report to the closest Emergency Room. Call 911 if necessary. 11/23/23 1537 <Electronically signed by Smith Ho MD> Cosigner Signature (if applicable): CC: Dr. Carl Encarnacion MD ~ Signed [facility] Work Phone: 1(450) 153-698204-16-2024 History and physical note Author [facility] November 23, 2023 2:36pm Note Date/Time November 23, 2023 11: 38am [facility] Medical Records Department [address] [place] [address] H&P Exam - Hospitalist 11/23/23 1137 MR#: [id number] Acct: [id number] Name: STEFANO WASHINGTON Rep #:[id number] : 1940 83 From: Kelby saldaña DO PCP: Dr. Carl Encarnacion MD Status:ADM IN Location: [place] 098841-1 HPI - General General Date of Admission: 11/23/23 Date of Service: 11/23/23 Chief Complaint: Fall with weakness HPI Narrative STEFANO WASHINGTON, is a 83 F who presented to [facility] ED on 11/23/2023 after a fall at [...] previously had a bad experience at another long term and significantly prefers to go to the TCU on discharge if needed. In the ED, patient was found to have a creatinine kinase level of 2446. Kidney function was at baseline. CBC and BMP were otherwise benign. Chest x-ray was nonacute. UA was infectious appearing. Given her acute debility, rhabdomyolysis and concern for UTI, patient was admitted for further management. [facility] Medical History (Updated 11/23/23 @ 12:59 by [...] PO DAILY SUPPLEMENT 05/09/21 [History Last Taken 10/01/21] omeprazole 20 mg capsule,delayed release 20 mg [...] 77.0 H, Lymph % (Auto) 12.9 L, Crook % (Auto) 9.0, Eos % (Auto) 0.1, [...] Clarity Cloudy, Urine pH 6.0, Ur Specific Holcomb 1.010, Urine Protein 30 H, Urine Glucose [...] Patient is an 83-year-old female who presented [facility] ED on 11/23/2023 after a fall at home and being down for several hours after that due to weakness. 1. Mechanical fall, acute on chronic debility ? [facility]. PT/OT/case management consulted. Lives at home [...] 35 minutes. Charges/Coding Visit Charges Inpatient E&M: 77491 Init Hosp L2 11/23/23 1436 <Electronically signed by Kelby Aguilar DO> Cosigner Signature (if applicable): CC: Dr. Kelby Aguilar DO; Dr. Carl Encarnacion MD~ Signed [facility] Work Phone: 1(343) 577-920202-29-2024 Miscellaneous Notes* Telephone Encounter - Kristen Eugene [...] and date of : Yes, Provider Alejandra Justice phones for refill(s): Requested Prescriptions Pending Prescriptions Disp Refills traMADol (ULTRAM) 50 mg tablet 60 tablet 0 Sig: Take 1 tablet by mouth two times a day for 30 days. for arthritis pain. Date of last office visit in primary care: 08/18/2023 Date of next office visit in primary care: 02/17/2024 Please advise. Thank you. Linn Estrada. 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 I. "Peritoneum over right ureter", biopsy: Benign fibroadipose tissue. J. Lymph nodes, [...] (See telephone encounter 07/16/2023) She states that "I don't know how many years I got left and I dont want to spend them at the doctor". "This will be my last appointment here." Reviewed surveillance recommendations, NCCN guidelines, risks and benefits. Pt and daughter acknowledged and expressed understanding. Declines follow up with Dr. Castillo. Does not want to return to [place]. Does not want to take anything that may impact her blood counts. Not interested in PARP inhibitor. Declines labs and scans. Will continue to follow with Dr. Encarnacion, next appt scheduled 08/18/2023. Following with cardiology at [place]. She reports that she is feeling well. [...] cardiology - follow up as needed. Prosper Amador APRN.RESEARCH EPIDEMIOLOGIST Portions of this note including HPI, ROS, impression/plan may have been copied forward as to provide important historical information essential in contributing to medical decision making. Documentation has been reviewed and edited as necessary to support clinical decision making for today's visit and to reflect my own independent evaluation of this patient. documented in this encounterOhiohealth Marion General Hospital12-18-2023 NoteSelect Medical Ohio[facility]12-08-2023 Miscellaneous Notes* Telephone Encounter - Amanda Coles [...] Amanda Coles - 07/16/2023 8:52 AM EST Daughter, Stefano called stating patient does not want to continue treatments and to cancel all appointments. She is going to have lab and follow up with PCP in August. All appointments canceled as requested documented in this encounterOhiohealth Marion General Hospital12-04-2023 Miscellaneous Notes* Telephone Encounter - Izzy Duarte LPN - 07/12/2023 2:11 PM EST Daughter notified and wants to make sure she does not have any problems with the next prescription. Called the [facility] and spoke with the pharmacist. I [...] review. 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 I. "Peritoneum over right ureter", biopsy: Benign fibroadipose tissue. J. Lymph nodes, [...] C (98.8 F), height 153 cm (5' 0.24"), weight 75.3 kg (166 lb), SpO2 98 [...] Abs Lymph 1.00 - 4.00 k/uL 1.82 Crook% % 6.8 Abs Crook <0.87 k/uL 0.21 Eosin% % 1.6 Abs [...] is frail and would unlikely have tolerated chehalis doublet. -Symptomatically tolerating carboplatin very well. -Reviewed [...] which included preparing to see the patient, [id number] patient care, completing clinical documentation, obtaining and/or reviewing separately obtained history, performing a medically appropriate examination, counseling and educating the pat ient/family/caregiver, ordering medications, tests, or procedures, communicating with other HCPs (not separately reported), and communicating results to the patient/family/caregiver. Wilmar Forbes DO documented in this encounterOhiohealth Marion General Hospital11-09-2023 Miscellaneous Notes* Telephone Encounter - Korin [...] the discomfort resolves. Patient stated this started "a long long long time ago"/ Fever: No Chills: No Cold sensitivity: No Numbness/weakness: Yes "when that leg acts up and then it starts being better". (Right hip) Edema: No Skin changes: No Itching: No Yellowing of skin or eyes: No Musculoskeletal/joint changes/issues right hip discomfort in the morning Bleeding issues: No Activity Level: "I get around pretty good". Patient stated she is pretty active. Do [...] protocol. Korin Mantilla RN documented in this encounterOhiohealth Marion General Hospital11-03-2023 Miscellaneous Notes* Telephone Encounter - Carl [...] notify patient. Stephanie Estrada documented in this encounterOhiohealth Marion General Hospital11-03-2023 Miscellaneous Notes* Telephone Encounter - Korin [...] protocol. Korin Mantilla RN documented in this encounterOhiohealth Marion General Hospital10-30-2023 Miscellaneous Notes* Telephone Encounter - Carl [...] need to notify patient. Keily Rico MA Viar \\3 Jun 2007/2023 Last refill: * Telephone Encounter [...] medication - must be call in. Stefano Le Pss documented in this encounterOhiohealth Marion General Hospital10-30-2023 Miscellaneous Notes* Telephone Encounter - Angeline Shaikh - 06/07/2023 4:32 PM EDT Chemo scheduled and daughter aware of first treatment date/time. Angeline Shaikh * Telephone Encounter - Korin Mantilla RN - 06/04/2023 11:00 AM EDT PSS- completed chemo edu today. Daughter Celina aware our office will contact her with C1D1 chemo schedule. Celina stated understanding. Korin Mantilla RN * Telephone Encounter - Angeline Shaikh - 06/02/2023 3:26 PM EDT Check out comments: Labs today. - COMPLETED Chemo teaching. - SCHEDULED Start Carbo when able. CBC/CMP/Mag/CA 125/OV with cycles 2 & 3. Do not schedule chemo until office note is signed for authorization purposes. Angeline Shaikh documented in this encounterOhiohealth Marion General Hospital10-30-2023 Miscellaneous Notes* Telephone Encounter - Susan [...] you. Korin Mantilla RN documented in this encounterOhiohealth Marion General Hospital10-27-2023 NoteHNO ID: [id number] Author: Korin Mantilla RN Service: ? Author Type: Registered Nurse Type: Progress Notes Filed: 06/04/2023 1:18 PM Note Text: This visit was completed via telephone. Korin Mantilla RNSelect Medical Ohiohealth Rehabilitation Hospital [facility]10-27-2023 History of Present illness Narrative* Korin Mantilla [...] require immediate assistance. YES - Provided Chemotherapy "when to call" handouts YES - Preventing infection. YES - [...] Mantilla RN - 06/04/2023 1:14 PM EDT Sample Case Porter Pre Chemo Patient identified by name and date of . YES Confirmed date and time for chemotherapy ? YES Other appointments (labs, imaging) discussed? YES Discussed where to park (crop duster), charge for parking YES Discussed where to [...] needed: Korin Mantilla RN documented in this encounterOhiohealth Marion General Hospital10-27-2023 NoteSelect Medical [facility]10-27-2023 NoteSelect Medical [facility]10-25-2023 Miscellaneous Notes * Telephone Encounter - Korin Mantilla RN - 06/02/2023 3:16 PM EDT Met with patient and introduced myself. Patient was given a My Journey binder with chemocare information, office contact information, thermometer, and additional chemotherapy resource booklets. Patient aware this nurse will review on scheduled appointment date. 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 I. "Peritoneum over right ureter", biopsy: Benign fibroadipose tissue. J. Lymph nodes, [...] (97.9 F), weight 73.5 kg (162 lb), EfR305 %. Somewhat frail-appearing and in no acute [...] she would be able to tolerate a chehalis doublet. -I discussed the logistics, potential risks [...] which included preparing to see the patient, [id number] patient care, completing clinical documentation, obtaining and/or reviewing separately obtained history, performing a medically appropriate examination, counseling and educating the pat ient/family/caregiver, ordering medications, tests, or procedures, and communicating results to thepatient/family/caregiver. Wilmar Forbes DO documented in this encounterOhiohealth Marion General Hospital10-25-2023 NoteSelect Medical Ohio[facility]10-23-2023 NoteSelect Medical [facility]10-23-2023 History of Present illness Narrative* Carl Encarnacion MD - 05/31/2023 8:50 AM EDT Patient's home health 485 form / care plan for certification period 05/12/2023 to 07/10/2023 reviewedand signed. Relevant medical records were reviewed. Changes were communicated to home health agency documented in this encounterOhiohealth Marion General Hospital10-09-2023 NoteSelect Medical [facility]10-05-2023 Miscellaneous Notes* Telephone Encounter - Carl Encarnacion MD - 05/13/2023 4:57 PM EDT Noted. * Telephone Encounter - Angeline Robbins RN - 05/13/2023 11:34 AM EDT Kumar calling from [facility] to report plan of care for patient and custodial willvisit patient 1 time a week for 2 weeks, 2 times a week for 2 weeks and 1 time a week for 3 weeks. FDC will work with patient on teaching about chemotherapy and medication safety. Kumar also notes that patient has an order for Tramadol 50 mg twice a day. Patient was taking 100 mgonce a day. Kumar had explained to patient the importance of taking medication as prescribed. Angeline Robbins RN documented in this encounterOhiohealth Marion General Hospital09-25-2023 History of Present illness Narrative* Eliot Castillo MD - 05/03/2023 4:45 PM EDT Gynecologic Oncology [facility] Postop Re: Stefano Washington [facility]#: [id number] Date of Service: 05/03/2023 Dr. Jacky Graves [...] excision: Two benign lymph nodes (0/2). I. "Peritoneum over right ureter", biopsy: Benign fibroadipose tissue. J. Lymph nodes, [...] vaginal cuff. Bimanual exam reveals no tenderness. Exhibit Technician offered: Patient accepts, visit chaperoned by Tuyet [...] can receive treatment with Dr Forbes in [place] and return here after completion of chemotherapy. [...] documentation. All medicalrecord entries made by the allysonibmanjula were at my direction and in my [...] necessary changes were made. documented in this encounterOhiohealth Marion General Hospital09-25-2023 NoteHNO ID: [id number] Author: Eliot Castillo MD Service: ? Author Type: Physician Type: Progress Notes Filed: 05/04/2023 4:46 AM Note Text: Gynecologic Oncology [facility] Postop Re: Stefano Washington [facility]#: [id number] Date of Service: 05/03/2023 Dr. Jacky Graves [...] excision: Two benign lymph nodes (0/2). I. "Peritoneum over right ureter", biopsy: Benign fibroadipose tissue. J. Lymph nodes, right para-aortic, excision: Three benign lymph nodes (0/3). K. Left paracolic gutter peritoneum, biopsy: Benign fibroadipose tissue. L. Right paracolic gutter peritoneum, biopsy: Benign fibroadipose tissue. M. Appendix, appendectomy: Fibrous obliteration. N. Omentum, excision: Benign fibroadipose tissue. O. Right diaphragm, biopsy: Benign fibroadipose tissue. Diagnosis Comment Dr. Nicole Maher review (more content not included)...[id number] Miscellaneous Notes* Telephone Encounter - Carl Encarnacion [...] advise. Baltazar Bazzi LPN documented in this encounterOhiohealth Marion General Hospital09-06-2023 NoteSelect Medical [facility]09-05-2023 NoteSelect Medical [facility]09-04-2023 NoteSelect Medical [facility]09-03-2023 NoteSelect Medical [facility]09-02-2023 Note [facility]09-02-2023 NoteSelect Medical [facility]09-02-2023 NoteSelect Medical [facility]09-01-2023 NoteSelect Medical [facility] 04-09-2023 Miscellaneous Notes* Telephone Encounter - Tamiko Ramirez LPN - 04/09/2023 3:08 PM EDT Keisha from [facility] Home Health returned call and family declined Home Health, family wants patient to goto TCU or Rehab. Casemanager at [facility] will have to work on [...] - 04/09/2023 1:42 PM EDT //Keisha from [facility] calling patient is currently in main campus had ovarian mass, discharging sometime over the weekend. They received order for custodial, PT/OT. Asking if PCP would follow and sign orders and give verbal order for delay in start of care until 04/13/2023? Aware PCP is out of office this afternoon. Please advise documented in this encounterOhiohealth Marion General Hospital09-01-2023 NoteSelect Medical [facility]08-31-2023 NoteSelect Medical [facility]08-30-2023 NoteSelect Medical [facility]08-30-2023 NoteSelect Medical [facility]08-30-2023 Note [facility]08-30-2023 NoteSelect Medical [facility]08-29-2023 Instructions* Patient Instructions* Ousmane Jones APRN.KACI, ROGE - 04/06/2023 3:43 PM EDT PATIENT PREOPERATIVE INSTRUCTIONS No ref. provider found has scheduled you for your procedure at this surgery center: [facility] [place] Scheduling Office: [phone] --[address] [place] [address]. Please read below carefully for your personalized [...] Procedures: - YOU MUST HAVE A RESPONSIBLE CHURN DRILL OPERATOR TAKE YOU HOME. A COINING PRESS OPERATOR OR DISPLAY FABRICATOR CANNOT BE MADE A RESPONSIBLE CHURN DRILL OPERATOR. - We recommend that a responsible person [...] call the Wednesday before. Your surgeon s pharmacy scheduler will tell you what time to call the office. - If you have not reached the departmental pharmacy scheduler by 5 P.M., call [phone] after 5 P.M. the day before your surgery. Please be aware that emergency situations arise, which may delay or change your surgical time. If this happens, we will notify you as soon as possible and regret any inconvenience. If you already have an Advance Directive, please fax a copy to [phone] or email to for it to be [...] Viviana Jones APRN.CNP, DNP documented in this encounterOhiohealth Marion General Hospital08-29-2023 Miscellaneous Notes* Telephone Encounter - Ousmane Jones APRN.CNP, DNP - 04/06/2023 3:43 PM EDT Preop instruction documented in this encounterOhiohealth Marion General Hospital08-29-2023 History and physical note * Ousmane Jones APRN.CNP, DNP - 04/06/2023 3:00 PM EDT PREANESTHESIA CONSULT CLINIC TELEHEALTH VISIT I have communicated my name and active licensure. The patient's identity and physical location wereverified at the time of this visit. Either the patient or their legal employee relations representative has been informed of the risks and benefits of and alternatives to treatment through a remote evaluation and consents to proceed with the evaluation remotely. Patient has been identified by name and date of : Yes This is a virtual visit using [employer] video visit. It require patient-provider interaction for the medical decision making as documented below. Reason for contact: PACC visit Accompanied by: Self Scheduled Surgery: HYSTERECTOMY ABDOMINAL TOTAL WITH SALPINGO-OOPHORECTOMY BILATERAL with Eliot Castillo MD on 04/07/2023 at [facility]. Subjective CHIEF COMPLAINT: Patient presents with: [...] fevers. Neuro: No history of TIA's, stroke, PICKING CREW SUPERVISOR tumor, impaired sensorium, hemiplegia, paraplegia or quadraplegia. No neurological symptoms or problems. Respiratory: No history of current cough or dyspnea, or pneumonia in the past 6 weeks. No history of respiratory/pulmonary symptoms or problems. Cardiovascular: Positive for: HLD, Hypertension, on rx, PE on Eliquis 2 years ago during Covid infection, resolved with no reoccurrence, Negative for Recent [place], Angina, Arrhythmia, CAD, Chest Pain, CHF, PVD, Valvular Heart Disease GI: Positive for GERD, Giant hiatal hernia per recent CT abdomen/pelvis on rx, Negative for PUD, Heartburn, Nausea, Vomiting, Abdominal pain, Hepatitis, Liver disease, Inflammatory bowel disease, Colon cancer, Rectal cancer, Diverticulitis, History of polyps : Negative for dysuria, frequency, incontinence, decreased stream, and hematuria, Positive for mild bilateral hydronephrosis per CT abdomen/pelvis PERFORMANCE MANAGEMENT CONSULTANT: See HPI :No LMP recorded. Patient is [...] and itching. Objective PHYSICAL EXAM: Ht 5' 1.417" (1.56m) Wt 160 lb (72.6kg) BMI 29.82 [...] age Abnormal ECG Confirmed by MATT MOREJON, [facility] ([id number][facility] on 03/22/2023 2:44:01 PM Most recent [...] intubation Significant Anesthesia Considerations: Difficult IV/Vein Access: "small veins" Airway Exam: General: Normal appearance Mallampati Score [...] this time. Patient has been cleared by [facility] cardiology Desi Madison on 03/26/2023. Please [...] device. I spent more than 0-20 minutes [id number] with the patient and over half the time was devoted to counseling and/or coordination of care. This is a virtual visit. It required patient-provider interaction for the medical decision making as documented above. This document has been created with use of voice recognition technology. It may contain inaccuracies, misspellings, inaccurate syntax or word sense that escaped review. SIGNATURE: Ousmane Jones APRN.RESEARCH EPIDEMIOLOGIST, DNP PATIENT NAME: Stefano Washington DATE: April 06, 2023 TIME: 2:42 PM PAGER/CONTACT #: documented in this encounterOhiohealth Marion General Hospital08-16-2023 Miscellaneous Notes* Telephone Encounter - Nanci Calloway - 03/24/2023 2:35 PM EDT Received CC in [facility] but patient will be receiving services elsewhere . documented in this encounterOhiohealth Marion General Hospital08-16-2023 Miscellaneous Notes* Telephone Encounter - Annmarie Mendoza APRN.KACI - 03/24/2023 2:28 PM EDT Patient's daughter called to report they found a cardiology office closer to home that they would like to go to instead as it is much closer to home. Appointment arranged with Dr.Sharan Ashok Crane Managing Jeweler [phone] on Monday 03/26 @ 145pm. Will follow up with patient/daughter after appt to determine when surgery can be scheduled. Annmarie Mendoza APRN.KACI documented in this encounterOhiohealth Marion General Hospital08-14-2023 Miscellaneous Notes* Telephone Encounter - Tuyet [...] Will await call/try again. documented in this encounterOhiohealth Marion General Hospital08-14-2023 Miscellaneous Notes* Telephone Encounter - Tuyet Lorenz RN - 03/22/2023 3:42 PM EDT Spoke with daughter. Patient is scheduled for ECHO tomorrow , in [place]. * Telephone Encounter - Annmarie Mendoza APRN.KACI - 03/22/2023 3:10 PM EDT Please let patient/daughter know her EKG was showing some changes that require an echocardiogram before she can proceed with surgery. The order for the echo has been placed. Can you please help get this scheduled for tomorrow morning, since her surgery is on Wednesday at [facility]. Thanks documented in this encounterOhiohealth Marion General Hospital08-14-2023 History of Present illness Narrative* Isamar [...] to prevent falls during this visit? Yellow "Falls Risk Wristband" Applied, Instructed Patient to Call for Help [...] 22, 2023 1:22 PM documented in this encounterOhiohealth Marion General Hospital08-14-2023 Miscellaneous Notes* Allied Health - Belkis Milton - 03/22/2023 1:00 PM EDT RADIOLOGY SERVICE PROGRESS NOTE DATE OF SERVICE: March 22, 2023 TIME OF SERVICE: 12:34PM EVENT: ARRIVED IN WHEELCHAIR ADDITIONAL EVENT DETAILS: NA SIGNATURE: Belkis Milton PATIENT NAME: Stefano Washington DATE: March 22, 2023 TIME: 12:56 PM PAGER/CONTACT #: documented in this encounterOhiohealth Marion General Hospital08-08-2023 Miscellaneous Notes* Telephone Encounter - Kaye Mchugh RN - 03/16/2023 5:06 PM EDT Called daughter and informed her of appt made. I was told that [place] is not available for several months.I did schedule patient for [place] and daughter was agreeable because we could get her in with Dr Castillo in about 2 weeks. Phone number given to daughter if they wish to try to get into [place] [phone] * Telephone Encounter - Ely Rico MD - 03/16/2023 4:18 PM EDT Consult order filed Ely Rico MD * Telephone Encounter - Kaye Mchugh RN - 03/16/2023 3:48 PM EDT I called patient at the request of Dr Rico. Dr Rico has reviewed the patient referral from Dr nEcarnacion and believes patient should be seen by aligner typewriter/onc. Keyur tis agreeable. She asked me to call her daughter Stefano Quezada at [phone] to let her know. Patient's daughter is agreeable but states they do not want to go to [place]. They will go to [place]. Please file referral and let us know who you recommend in [place] documented in this encounterOhiohealth Marion General Hospital08-01-2023 History of Present illness Narrative* Ioana [...] 2023 TIME: 1:26 PM documented in this encounterOhiohealth Marion General Hospital08-01-2023 NoteSelect Medical Ohio[facility]07-03-2023 Miscellaneous Notes* Telephone Encounter - Kristen Eugene [...] and advise. Kaye Donahue documented in this encounterOhiohealth Marion General Hospital06-27-2023 NoteSelect Medical Ohiohealth [facility]06-27-2023 History of Present illness Narrative* America Camejo, [...] Planned: 12 Planned Treatment Interventions: Therapeutic exercise (41505), Neuromuscular re- education (08667), Therapeutic activities (87522), Self-senior care management (10996), Patient/Family/Caregiver Education, Gait Training (86669) PLAN FOR NEXT VISIT: Pt. instructed to [...] Treatment Interventions: Therapeutic Exercise, Therapeutic Activity, Self- Jail Management Evaluation Therapeutic Exercise: 1: *seated scapular [...] program as noted above with an (*). Self-Jail Management: 1: *instructed pt. to bring her [...] 45 America Camejo PT documented in this encounterOhiohealth Marion General Hospital06-27-2023 Miscellaneous Notes* Telephone Encounter - Jeremiah Puckett LPN - 02/02/2023 11:35 AM EDT Spoke with pt's daughter and advised her of Kristen's message. She verbalizes understanding. She isrequesting to have referral faxed to [facility]. She is going to check with Dr [...] welcomed to get a 2nd opinion from [place] [facility]. We do have pain management in [place] from neftaly manzo. Dr. Cohn and dr. White are private practice options in [place] as well if they would like to [...] appointment would be all the way in [place] and that is too far for patient. Daughter said she is going to take patient to [facility] for her back instead. This staff tried to explain that Ortho and Pain are different specialties. Daughter states "they helped with my back so I don't get what the problem is". Daughter then stated she will discuss with [...] of Kristen's message. Also left message for daughter, Stefano to contact office. Please see Kristen's message [...] assist with scheduling. Call daughter Stefano at [phone]. Thank you. * Telephone Encounter - Jeremiah [...] options. Kristen Eugene PA-C documented in this encounterOhiohealth Marion General Hospital06-21-2023 NoteSelect Medical Ohio[facility]06-21-2023 NoteSelect Medical [facility]06-21-2023 History of Present illness Narrative* Kristen Eugene [...] AP/LAT/L5-S1 Kristen Eugene PA-C documented in this encounterOhiohealth Marion General Hospital06-19-2023 Miscellaneous Notes* Telephone Encounter - Jeremiah [...] Quezada calling to verify lab order in [facility] so granddaughter can shredder picker urine specimen supplies. Please file order and contact daughter when done. # [phone]. Vijaya Bishop RN * Telephone Encounter - Jeremiah Puckett LPN - 01/25/2023 12:15 PM EDT Pt notified of Lorna message and instructions. Pt verbalizes understanding. Pt [...] Have those symptoms improved? documented in this encounterOhiohealth Marion General Hospital06-15-2023 Miscellaneous Notes* Telephone Encounter - Angeline Robbins RN - 01/21/2023 9:39 AM EDT Patient's Grand Daughter called and notified that prescription has been sent to pharmacy. Angeline Robbins RN * Telephone Encounter - Carl Encarnacion MD - 01/21/2023 8:57 AM EDT Let grand daughter know antibiotic sent to [facility]. The following approved medication requests have been [...] advise, Angeline Robbins RN documented in this encounterOhiohealth Marion General Hospital06-06-2023 History of Present illness Narrative* Barrera Daley APRN.CNP - 01/12/2023 10:20 AM EDT Patient triaged at [facility]. Here today with 12/10 mid back pain after fall few days ago. Patient in wheel chair, not able to walk well d/t pain. I will refer to ER, concerns with age and severity of pain. documented in this encounterOhiohealth Marion [facility] Hospital03-31-2023 Miscellaneous Notes* Telephone Encounter - uJdi Estrada - 11/06/2022 9:18 AM EDT Pharmacy verified in [facility] Patient has been identified by name [...] 76.7 kg (169 lb) Please advise. Judi Plascencia Pss documented in this encounterOhiohealth Marion General Hospital02-02-2023 Miscellaneous Notes* Telephone Encounter - Carl [...] patient. Stephanie Duarte Pss documented in this encounterOhiohealth Marion General Hospital12-12-2022 Miscellaneous Notes* Telephone Encounter - Amanda Kendrick - 07/20/2022 10:38 AM EST Patient given results and verbalized understanding of instructions given. Amanda Kendrick * Telephone Encounter - Barrera Daley APRN.CNP - 07/20/2022 9:55 AM EST Please notify negative chest xray for pneumonia. Large hiatal hernia noted, no action needed. May stop atb per note. F/u as discussed during visit. documented in this encounterOhiohealth Marion General Hospital12-12-2022 History of Present illness Narrative* Monisha Donahue RT(R) - 07/20/2022 8:10 AM EST Radiology Service [...] IV DATA: Not applicable SIGNED BY: RT Anmol(R) July 20, 2022 8:10 AM documented in this encounterOhiohealth Marion General Hospital12-11-2022 History of Present illness Narrative* Isabel Roca APRN.CNP - 07/19/2022 11:47 AM EST CC: Patient [...] Patient agreeable to treatment plan. Isabel Roca APRN.RESEARCH EPIDEMIOLOGIST documented in this encounterOhiohealth Marion General Hospital11-21-2022 Miscellaneous Notes* Telephone Encounter - Jeremiah [...] reduce fat in diet. documented in this encounterOhiohealth Marion General Hospital11-18-2022 Instructions* Patient Instructions* Carl Encarnacion MD - 06/26/2022 11:03 AM EST Consider getting the shingrix vaccine for the prevention of shingles from a local pharmacy documented in this encounterOhiohealth Marion General Hospital11-18-2022 History of Present illness Narrative* Carl [...] Abs Lymph 1.00 - 4.00 k/uL 1.67 Crook% % 8.5 Abs Crook <0.87 k/uL 0.42 Eosin% % 2.6 Abs [...] Negative Negative Ketones, Urine Negative Negative Specific Holcomb, Ur 1.005 - 1.030 1.006 Hemoglobin/Blood,Ur Negative [...] QUADRIVALENT HIGH DOSE AGE 65+: Given - Fixya-Funidelia COVID-19 BIVALENT BOOSTER VACCINE, AGE 12+ YR: [...] visit. Carl Encarnacion MD documented in this encounterOhiohealth Marion General Hospital11-02-2022 Miscellaneous Notes* Telephone Encounter - Carl [...] refill: 12/2021 * Telephone Encounter - Sherlyn Estrada - 06/10/2022 10:54 AM EDT Patient has [...] once daily. Please review and advise. Sherlyn Estrada documented in this encounterOhiohealth Marion General Hospital10-28-2022 Miscellaneous Notes* Telephone Encounter - Jeremiah [...] Thank you. Lorena Silver documented in this encounterOhiohealth Marion General Hospital10-17-2022 Miscellaneous Notes* Telephone Encounter - Carl Encarnacion MD - 05/25/2022 1:10 PM EDT Noted. * Telephone Encounter - Tamiko Ramirez LPN - 05/25/2022 12:53 PM EDT Gina from [employer] calling patient refused overnight pulse ox testing, patient said she returned her oxygen supplies and did not need to have done. documented in this encounterOhiohealth Marion General Hospital10-05-2022 Miscellaneous Notes* Telephone Encounter - Jeremiah Puckett [...] - 05/13/2022 10:21 AM EDT Gina with [employer] calls to ask if provider wants pulse oximetry testing done on RA or with Oxygen? Noted patient is refusing to do testing and returning device on 05/07/2022 to [facility]. Equipment not returned yet. Gina asking if provider would want them to try and do it without oxygen to make sure her levels are WNL if patient is agreeable. Yancy Wetzel RN documented in this encounterOhiohealth Marion General Hospital09-29-2022 Miscellaneous Notes* Telephone Encounter - Lorena Silver - 05/07/2022 2:39 PM EDT Patient is refusing to schedule procedure at this time. She states she is returning her device. * Telephone Encounter - Keily Rico MA - 05/04/2022 5:02 PM EDT [place] [facility] [place]. Keily Rico MA Please schedule patient for Adult Oximetry with ambulation. (See PCP orders) Keily Rico MA * Telephone Encounter - Carl Encarnacion MD - 05/01/2022 6:08 PM EDT Oximetry with ambulation ordered. Please assist patient with getting set up. Nocturnal pulse ox order printed and ready to be [place]ed [place] [facility] * Telephone Encounter - Jeremiah Puckett LPN [...] will have her daughter take her to [facility] and she will hand them the oxygen equipment she has.Pt states she does not want to be mean but they are trying to pay for the cataract surgery and $8.00 is a lot to her. Please advise pt. Izzy Duarte LPN documented in this encounterOhiohealth Marion General Hospital08-09-2022 Miscellaneous Notes* Telephone Encounter - Carl [...] the sleep test. * Telephone Encounter - Nori Krueger RN - 03/16/2022 11:32 AM EDT Patient asking pcp to please cancel her oxygen. Reports she has not used it in 3 mths. Please fax order to [employer]- fax # [phone] documented in this encounterOhiohealth Marion General Hospital08-05-2022 Miscellaneous Notes* Telephone Encounter - Kristen [...] Kruse Ma * Telephone Encounter - Stephanie Duarte Pss - 03/13/2022 8:24 AM EDT Patient has [...] patient. Stephanie Duarte Pss documented in this encounterOhiohealth Marion General Hospital05-09-2022 Miscellaneous Notes* Telephone Encounter - Carl [...] 40 mg a day? documented in this encounterOhiohealth Marion General Hospital05-06-2022 History of Present illness Narrative* Carl [...] at PIP joint COLONOSCOP W/ OR W/O [facility] SPEC 02/14/09 repeat 10 yrs, sigmoid diverticulosis, internal hemorrhoids EGD W/O [facility] SPECIMEN W/BX 02/14/09 hiatal [...] at bedtime. - continue current dose of Synthroid\\ Check - TSH BLD 4. History of [...] routine Carl Encarnacion MD documented in this encounterOhiohealth Marion General Hospital04-22-2022 Miscellaneous Notes* Telephone Encounter - MARI [...] notify patient. Stefany Estrada documented in this encounterOhiohealth Marion General Hospital04-11-2022 Miscellaneous Notes* Telephone Encounter - Carl [...] desk. Jeremiah Puckett LPN documented in this encounterOhiohealth Marion General Hospital04-08-2022 Miscellaneous Notes* Telephone Encounter - Sruthi Pisano Ma - 11/14/2021 1:25 PM EDT gandaughter was notified and aware antibiotic Sruthi Pisano [...] can not leave home. Melanie works for [employer] sowould collect urine and process that through [employer]. If willing can order be placed [...] Patient has had frequent UTI's. Asking what PCP/[employer] would recommend. Please advise. documented in this encounterOhiohealth Marion General Hospital11-10-2021 History of Past illness Narrative* Problem Noted Date Resolved Date Acute respiratory failure 06/18/20212021 Pain in joint, pelvic region and thigh 3 11/28/2012 Enthesopathy of hip region 10/27/201211/28 Acute gastritis without mention of hemorrhage 12/07/2014 Iron deficiency anemia, unspecified 02/14/2009 05/10/2018 documented as of this encounter (statuses as of 11/14/2021) [facility] of Past illness Narrative* Problem Noted Date Resolved Date Acute respiratory failure 06/18/20212021 Pain in joint, pelvic region and thigh 3 11/28/2012 Enthesopathy of hip region 10/27/201211/28 Acute gastritis without mention of hemorrhage 12/07/2014 Iron deficiency anemia, unspecified 02/14/2009 05/10/2018 documented as of this encounter (statuses as of 11/17/2021) [facility] of Past illness Narrative* Problem Noted Date Resolved Date Acute respiratory failure 06/18/20212021 Pain in joint, pelvic region and thigh 3 11/28/2012 Enthesopathy of hip region 10/27/201211/28 Acute gastritis without mention of hemorrhage 12/07/2014 Iron deficiency anemia, unspecified 02/14/2009 05/10/2018 documented as of this encounter (statuses as of 11/28/2021) [facility] of Past illness Narrative* Problem Noted Date Resolved Date Acute respiratory failure 06/18/20212021 Pain in joint, pelvic region and thigh 3 11/28/2012 Enthesopathy of hip region 10/27/201211/28 Acute gastritis without mention of hemorrhage 12/07/2014 Iron deficiency anemia, unspecified 02/14/2009 05/10/2018 documented as of this encounter (statuses as of 12/13/2021) [facility] of Past illness Narrative* Problem Noted Date Resolved Date Acute respiratory failure 06/18/20212021 Pain in joint, pelvic region and thigh 3 11/28/2012 Enthesopathy of hip region 10/27/201211/28 Acute gastritis without mention of hemorrhage 12/07/2014 Iron deficiency anemia, unspecified 02/14/2009 05/10/2018 documented as of this encounter (statuses as of 12/15/2021) [facility] of Past illness Narrative* Problem Noted Date Resolved Date Acute respiratory failure 06/18/20212021 Pain in joint, pelvic region and thigh 3 11/28/2012 Enthesopathy of hip region 10/27/201211/28 Acute gastritis without mention of hemorrhage 12/07/2014 Iron deficiency anemia, unspecified 02/14/2009 05/10/2018 documented as of this encounter (statuses as of 03/13/2022) [facility] of Past illness Narrative* Problem Noted Date Resolved Date Acute respiratory failure 06/18/20212021 Pain in joint, pelvic region and thigh 3 11/28/2012 Enthesopathy of hip region 10/27/201211/28 Acute gastritis without mention of hemorrhage 12/07/2014 Iron deficiency anemia, unspecified 02/14/2009 05/10/2018 documented as of this encounter (statuses as of 2022) [facility] of [facility] illness Narrative* Problem Noted Date Resolved Date Acute respiratory failure 06/18/20212021 Pain in joint, pelvic region and thigh 3 11/28/2012 Enthesopathy of hip region 10/27/201211/28 Acute gastritis without mention of hemorrhage 12/07/2014 Iron deficiency anemia, unspecified 02/14/2009 05/10/2018 documented as of this encounter (statuses as of 05/07/2022) [facility] of [facility] illness Narrative* Problem Noted Date Resolved Date Acute respiratory failure 06/18/20212021 Pain in joint, pelvic region and thigh 3 11/28/2012 Enthesopathy of hip region 10/27/201211/28 Acute gastritis without mention of hemorrhage 12/07/2014 Iron deficiency anemia, unspecified 02/14/2009 05/10/2018 documented as of this encounter (statuses as of 05/13/2022) [place] [id number] History of Past illness Narrative* Problem Noted Date Resolved Date Acute respiratory failure 06/18/20212021 Pain in joint, pelvic region and thigh 3 11/28/2012 Enthesopathy of hip region 10/27/201211/28 Acute gastritis without mention of hemorrhage 12/07/2014 Iron deficiency anemia, unspecified 02/14/2009 05/10/2018 documented as of this encounter (statuses as of 05/25/2022) [address]21 History of Past illness Narrative* Problem Noted Date Resolved Date Acute respiratory failure 06/18/20212021 Pain in joint, pelvic region and thigh 3 11/28/2012 Enthesopathy of hip region 10/27/201211/28 Acute gastritis without mention of hemorrhage 12/07/2014 Iron deficiency anemia, unspecified 02/14/2009 05/10/2018 documented as of this encounter (statuses as of 06/05/2022) [facility] Narrative* Problem Noted Date Resolved Date Acute respiratory failure 06/18/20212021 Pain in joint, pelvic region and thigh 3 11/28/2012 Enthesopathy of hip region 10/27/201211/28 Acute gastritis without mention of hemorrhage 12/07/2014 Iron deficiency anemia, unspecified 02/14/2009 05/10/2018 documented as of this encounter (statuses as of 06/10/2022) [facility] Narrative* Problem Noted Date Resolved Date Acute respiratory failure 06/18/20212021 Pain in joint, pelvic region and thigh 3 11/28/2012 Enthesopathy of hip region 10/27/201211/28 Acute gastritis without mention of hemorrhage 12/07/2014 Iron deficiency anemia, unspecified 02/14/2009 05/10/2018 documented as of this encounter (statuses as of 06/28/2022) [facility] Narrative* Problem Noted Date Resolved Date Acute respiratory failure 06/18/20212021 Pain in joint, pelvic region and thigh 3 11/28/2012 Enthesopathy of hip region 10/27/201211/28 Acute gastritis without mention of hemorrhage 12/07/2014 Iron deficiency anemia, unspecified 02/14/2009 05/10/2018 documented as of this encounter (statuses as of 06/29/2022) [facility] Narrative* Problem Noted Date Resolved Date Acute respiratory failure 06/18/20212021 Pain in joint, pelvic region and thigh 3 11/28/2012 Enthesopathy of hip region 10/27/201211/28 Acute gastritis without mention of hemorrhage 12/07/2014 Iron deficiency anemia, unspecified 02/14/2009 05/10/2018 documented as of this encounter (statuses as of 07/19/2022) [facility] Narrative* Problem Noted Date Resolved Date Acute respiratory failure 06/18/20212021 Pain in joint, pelvic region and thigh 3 11/28/2012 Enthesopathy of hip region 10/27/201211/28 Acute gastritis without mention of hemorrhage 12/07/2014 Iron deficiency anemia, unspecified 02/14/2009 05/10/2018 documented as of this encounter (statuses as of 07/20/2022) [facility] Narrative* Problem Noted Date Resolved Date Acute respiratory failure 06/18/20212021 Pain in joint, pelvic region and thigh 3 11/28/2012 Enthesopathy of hip region 10/27/201211/28 Acute gastritis without mention of hemorrhage 12/07/2014 Iron deficiency anemia, unspecified 02/14/2009 05/10/2018 documented as of this encounter (statuses as of 09/10/2022) [facility] Narrative* Problem Noted Date Resolved Date Acute respiratory failure 06/18/20212021 Pain in joint, pelvic region and thigh 3 11/28/2012 Enthesopathy of hip region 10/27/201211/28 Acute gastritis without mention of hemorrhage 12/07/2014 Iron deficiency anemia, unspecified 02/14/2009 05/10/2018 documented as of this encounter (statuses as of 11/06/2022) [facility] Narrative* Problem Noted Date Resolved Date Acute respiratory failure 06/18/20212021 Pain in joint, pelvic region and thigh 3 11/28/2012 Enthesopathy of hip region 10/27/201211/28 Acute gastritis without mention of hemorrhage 12/07/2014 Iron deficiency anemia, unspecified 02/14/2009 05/10/2018 documented as of this encounter (statuses as of 01/12/2023) [facility]arrative* Problem Noted Date Resolved Date Acute respiratory failure 06/18/20212021 Pain in joint, pelvic region and thigh 3 11/28/2012 Enthesopathy of hip region 10/27/201211/28 Acute gastritis without mention of hemorrhage 12/07/2014 Iron deficiency anemia, unspecified 02/14/2009 05/10/2018 documented as of this encounter (statuses as of 01/21/2023) [facility] Narrative* Problem Noted Date Resolved Date Acute respiratory failure 06/18/20212021 Pain in joint, pelvic region and thigh 3 11/28/2012 Enthesopathy of hip region 10/27/201211/28 Acute gastritis without mention of hemorrhage 12/07/2014 Iron deficiency anemia, unspecified 02/14/2009 05/10/2018 documented as of this encounter (statuses as of 01/25/2023) [facility]arrative* Problem Noted Date Resolved Date Acute respiratory failure 06/18/20212021 Pain in joint, pelvic region and thigh 3 11/28/2012 Enthesopathy of hip region 10/27/201211/28 Acute gastritis without mention of hemorrhage 12/07/2014 Iron deficiency anemia, unspecified 02/14/2009 05/10/2018 documented as of this encounter (statuses as of 01/27/2023) [facility]arrative* Problem Noted Date Resolved Date Acute respiratory failure 06/18/20212021 Pain in joint, pelvic region and thigh 3 11/28/2012 Enthesopathy of hip region 10/27/201211/28 Acute gastritis without mention of hemorrhage 12/07/2014 Iron deficiency anemia, unspecified 02/14/2009 05/10/2018 documented as of this encounter (statuses as of 02/02/2023) [facility]arrative* Problem Noted Date Resolved Date Acute respiratory failure 06/18/20212021 Pain in joint, pelvic region and thigh 3 11/28/2012 Enthesopathy of hip region 10/27/201211/28 Acute gastritis without mention of hemorrhage 12/07/2014 Iron deficiency anemia, unspecified 02/14/2009 05/10/2018 documented as of this encounter (statuses as of 02/03/2023) [facility] Narrative* Problem Noted Date Resolved Date Acute respiratory failure 06/18/20212021 Pain in joint, pelvic region and thigh 3 11/28/2012 Enthesopathy of hip region 10/27/201211/28 Acute gastritis without mention of hemorrhage 12/07/2014 Iron deficiency anemia, unspecified 02/14/2009 05/10/2018 documented as of this encounter (statuses as of 02/08/2023) [facility] Narrative* Problem Noted Date Diagnosed Date Resolved Date Acute respiratory failure 06/18/2021 Pain in joint, pelvic region and thigh 10/27/2012 11/28/2012 Enthesopathy of hip region 10/27/2012 0 11/28/2012 Acute gastritis without mention of hemorrhage 02/15/20 09 12/07/2014 Iron deficiency anemia, unspecified 02/14/2009 05/10/2018 documented as of this encounter (statuses as of 2023) [facility]arrative* Problem Noted Date Diagnosed Date Resolved Date Acute respiratory failure 06/18/2021 Pain in joint, pelvic region and thigh 10/27/2012 11/28/2012 Enthesopathy of hip region 10/27/2012 0 11/28/2012 Acute gastritis without mention of hemorrhage 02/15/20 09 12/07/2014 Iron deficiency anemia, unspecified 02/14/2009 05/10/2018 documented as of this encounter (statuses as of 03/23/2023) [facility] Narrative* Problem Noted Date Diagnosed Date Resolved Date Acute respiratory failure 06/18/2021 Pain in joint, pelvic region and thigh 10/27/2012 11/28/2012 Enthesopathy of hip region 10/27/2012 0 11/28/2012 Acute gastritis without mention of hemorrhage 02/15/20 09 12/07/2014 Iron deficiency anemia, unspecified 02/14/2009 05/10/2018 documented as of this encounter (statuses as of 03/23/2023) [facility]* Problem Noted Date Diagnosed Date Resolved Date Acute respiratory failure 06/18/2021 Pain in joint, pelvic region and thigh 10/27/2012 11/28/2012 Enthesopathy of hip region 10/27/2012 0 11/28/2012 Acute gastritis without mention of hemorrhage 02/15/20 09 12/07/2014 Iron deficiency anemia, unspecified 02/14/2009 05/10/2018 documented as of this encounter (statuses as of 03/23/2023) [facility]* Problem Noted Date Diagnosed Date Resolved Date Acute respiratory failure 06/18/2021 Pain in joint, pelvic region and thigh 10/27/2012 11/28/2012 Enthesopathy of hip region 10/27/2012 0 11/28/2012 Acute gastritis without mention of hemorrhage 02/15/20 09 12/07/2014 Iron deficiency anemia, unspecified 02/14/2009 05/10/2018 documented as of this encounter (statuses as of 03/25/2023) [facility]* Problem Noted Date Diagnosed Date Resolved Date Acute respiratory failure 06/18/2021 Pain in joint, pelvic region and thigh 10/27/2012 11/28/2012 Enthesopathy of hip region 10/27/2012 0 11/28/2012 Acute gastritis without mention of hemorrhage 02/15/20 09 12/07/2014 Iron deficiency anemia, unspecified 02/14/2009 05/10/2018 documented as of this encounter (statuses as of 03/29/2023) [facility]* Problem Noted Date Diagnosed Date Resolved Date Acute respiratory failure 06/18/2021 Pain in joint, pelvic region and thigh 10/27/2012 11/28/2012 Enthesopathy of hip region 10/27/2012 0 11/28/2012 Acute gastritis without mention of hemorrhage 02/15/20 09 12/07/2014 Iron deficiency anemia, unspecified 02/14/2009 05/10/2018 documented as of this encounter (statuses as of 04/07/2023) [facility]* Problem Noted Date Diagnosed Date Resolved Date Acute respiratory failure 06/18/2021 Pain in joint, pelvic region and thigh 10/27/2012 11/28/2012 Enthesopathy of hip region 10/27/2012 0 11/28/2012 Acute gastritis without mention of hemorrhage 02/15/20 09 12/07/2014 Iron deficiency anemia, unspecified 02/14/2009 05/10/2018 documented as of this encounter (statuses as of 04/07/2023) [facility]* Problem Noted Date Diagnosed Date Resolved Date Acute respiratory failure 06/18/2021 Pain in joint, pelvic region and thigh 10/27/2012 11/28/2012 Enthesopathy of hip region 10/27/2012 0 11/28/2012 Acute gastritis without mention of hemorrhage 02/15/20 09 12/07/2014 Iron deficiency anemia, unspecified 02/14/2009 05/10/2018 documented as of this encounter (statuses as of 04/12/2023) [facility]* Problem Noted Date Diagnosed Date Resolved Date Acute respiratory failure 06/18/2021 Pain in joint, pelvic region and thigh 10/27/2012 11/28/2012 Enthesopathy of hip region 10/27/2012 0 11/28/2012 Acute gastritis without mention of hemorrhage 02/15/20 09 12/07/2014 Iron deficiency anemia, unspecified 02/14/2009 05/10/2018 documented as of this encounter (statuses as of 04/23/2023) [place] [address]10-[address]21 History of Past illness Narrative* Problem Noted Date Diagnosed Date Resolved Date Acute respiratory failure 06/18/2021 Pain in joint, pelvic region and thigh 10/27/2012 11/28/2012 Enthesopathy of hip region 10/27/2012 0 11/28/2012 Acute gastritis without mention of hemorrhage 02/15/20 09 12/07/2014 Iron deficiency anemia, unspecified 02/14/2009 05/10/2018 documented as of this encounter (statuses as of 05/02/2023) [facility]* Problem Noted Date Diagnosed Date Resolved Date Acute respiratory failure 06/18/2021 Pain in joint, pelvic region and thigh 10/27/2012 11/28/2012 Enthesopathy of hip region 10/27/2012 0 11/28/2012 Acute gastritis without mention of hemorrhage 02/15/20 09 12/07/2014 Iron deficiency anemia, unspecified 02/14/2009 05/10/2018 documented as of this encounter (statuses as of 05/04/2023) [facility]arrative* Problem Noted Date Diagnosed Date Resolved Date Acute respiratory failure 06/18/2021 Pain in joint, pelvic region and thigh 10/27/2012 11/28/2012 Enthesopathy of hip region 10/27/2012 0 11/28/2012 Acute gastritis without mention of hemorrhage 02/15/20 09 12/07/2014 Iron deficiency anemia, unspecified 02/14/2009 05/10/2018 documented as of this encounter (statuses as of 05/15/2023) [facility]arrative* Problem Noted Date Diagnosed Date Resolved Date Acute respiratory failure 06/18/2021 Pain in joint, pelvic region and thigh 10/27/2012 11/28/2012 Enthesopathy of hip region 10/27/2012 0 11/28/2012 Acute gastritis without mention of hemorrhage 02/15/20 09 12/07/2014 Iron deficiency anemia, unspecified 02/14/2009 05/10/2018 documented as of this encounter (statuses as of 05/31/2023) [facility] Narrative* Problem Noted Date Diagnosed Date Resolved Date Acute respiratory failure 06/18/2021 Pain in joint, pelvic region and thigh 10/27/2012 11/28/2012 Enthesopathy of hip region 10/27/2012 0 11/28/2012 Acute gastritis without mention of hemorrhage 02/15/20 09 12/07/2014 Iron deficiency anemia, unspecified 02/14/2009 05/10/2018 documented as of this encounter (statuses as of 06/03/2023) [facility]-10[facility]21 History of Past illness Narrative* Problem Noted Date Diagnosed Date Resolved Date Acute respiratory failure 06/18/2021 Pain in joint, pelvic region and thigh 10/27/2012 11/28/2012 Enthesopathy of hip region 10/27/2012 0 11/28/2012 Acute gastritis without mention of hemorrhage 02/15/20 09 12/07/2014 Iron deficiency anemia, unspecified 02/14/2009 05/10/2018 documented as of this encounter (statuses as of 06/04/2023) [facility]21 History of Past illness Narrative* Problem Noted Date Diagnosed Date Resolved Date Acute respiratory failure 06/18/2021 Pain in joint, pelvic region and thigh 10/27/2012 11/28/2012 Enthesopathy of hip region 10/27/2012 0 11/28/2012 Acute gastritis without mention of hemorrhage 02/15/20 09 12/07/2014 Iron deficiency anemia, unspecified 02/14/2009 05/10/2018 documented as of this encounter (statuses as of 06/04/2023) [facility] History of Past illness Narrative* Problem Noted Date Diagnosed Date Resolved Date Acute respiratory failure 06/18/2021 Pain in joint, pelvic region and thigh 10/27/2012 11/28/2012 Enthesopathy of hip region 10/27/2012 0 11/28/2012 Acute gastritis without mention of hemorrhage 02/15/20 09 12/07/2014 Iron deficiency anemia, unspecified 02/14/2009 05/10/2018 documented as of this encounter (statuses as of 06/08/2023) [facility] History of Past illness Narrative* Problem Noted Date Diagnosed Date Resolved Date Acute respiratory failure 06/18/2021 Pain in joint, pelvic region and thigh 10/27/2012 11/28/2012 Enthesopathy of hip region 10/27/2012 0 11/28/2012 Acute gastritis without mention of hemorrhage 02/15/20 09 12/07/2014 Iron deficiency anemia, unspecified 02/14/2009 05/10/2018 documented as of this encounter (statuses as of 06/08/2023) [facility] History of Past illness Narrative* Problem Noted Date Diagnosed Date Resolved Date Acute respiratory failure 06/18/2021 Pain in joint, pelvic region and thigh 10/27/2012 11/28/2012 Enthesopathy of hip region 10/27/2012 0 11/28/2012 Acute gastritis without mention of hemorrhage 02/15/20 09 12/07/2014 Iron deficiency anemia, unspecified 02/14/2009 05/10/2018 documented as of this encounter (statuses as of 06/08/2023) [facility] History of Past illness Narrative* Problem Noted Date Diagnosed Date Resolved Date Acute respiratory failure 06/18/2021 Pain in joint, pelvic region and thigh 10/27/2012 11/28/2012 Enthesopathy of hip region 10/27/2012 0 11/28/2012 Acute gastritis without mention of hemorrhage 02/15/20 09 12/07/2014 Iron deficiency anemia, unspecified 02/14/2009 05/10/2018 documented as of this encounter (statuses as of 06/11/2023) [facility] History of Past illness Narrative* Problem Noted Date Diagnosed Date Resolved Date Acute respiratory failure 06/18/2021 Pain in joint, pelvic region and thigh 10/27/2012 11/28/2012 Enthesopathy of hip region 10/27/2012 0 11/28/2012 Acute gastritis without mention of hemorrhage 02/15/20 09 12/07/2014 Iron deficiency anemia, unspecified 02/14/2009 05/10/2018 documented as of this encounter (statuses as of 06/12/2023) [facility] History of Past illness Narrative* Problem Noted Date Diagnosed Date Resolved Date Acute respiratory failure 06/18/2021 Pain in joint, pelvic region and thigh 10/27/2012 11/28/2012 Enthesopathy of hip region 10/27/2012 0 11/28/2012 Acute gastritis without mention of hemorrhage 02/15/20 09 12/07/2014 Iron deficiency anemia, unspecified 02/14/2009 05/10/2018 documented as of this encounter (statuses as of 06/13/2023) [facility] History of Past illness Narrative* Problem Noted Date Diagnosed Date Resolved Date Acute respiratory failure 06/18/2021 Pain in joint, pelvic region and thigh 10/27/2012 11/28/2012 Enthesopathy of hip region 10/27/2012 0 11/28/2012 Acute gastritis without mention of hemorrhage 02/15/20 09 12/07/2014 Iron deficiency anemia, unspecified 02/14/2009 05/10/2018 documented as of this encounter (statuses as of 06/13/2023) [facility] History of Past illness Narrative* Problem Noted Date Diagnosed Date Resolved Date Acute respiratory failure 06/18/2021 Pain in joint, pelvic region and thigh 10/27/2012 11/28/2012 Enthesopathy of hip region 10/27/2012 0 11/28/2012 Acute gastritis without mention of hemorrhage 02/15/20 09 12/07/2014 Iron deficiency anemia, unspecified 02/14/2009 05/10/2018 documented as of this encounter (statuses as of 06/13/2023) [facility] History of Past illness Narrative* Problem Noted Date Diagnosed Date Resolved Date Acute respiratory failure 06/18/2021 Pain in joint, pelvic region and thigh 10/27/2012 11/28/2012 Enthesopathy of hip region 10/27/2012 0 11/28/2012 Acute gastritis without mention of hemorrhage 02/15/20 09 12/07/2014 Iron deficiency anemia, unspecified 02/14/2009 05/10/2018 documented as of this encounter (statuses as of 06/17/2023) [facility] History of Past illness Narrative* Problem Noted Date Diagnosed Date Resolved Date Acute respiratory failure 06/18/2021 Pain in joint, pelvic region and thigh 10/27/2012 11/28/2012 Enthesopathy of hip region 10/27/2012 0 11/28/2012 Acute gastritis without mention of hemorrhage 02/15/20 09 12/07/2014 Iron deficiency anemia, unspecified 02/14/2009 05/10/2018 documented as of this encounter (statuses as of 07/07/2023) [facility] History of Past illness Narrative* Problem Noted Date Diagnosed Date Resolved Date Acute respiratory failure 06/18/2021 Pain in joint, pelvic region and thigh 10/27/2012 11/28/2012 Enthesopathy of hip region 10/27/2012 0 11/28/2012 Acute gastritis without mention of hemorrhage 02/15/20 09 12/07/2014 Iron deficiency anemia, unspecified 02/14/2009 05/10/2018 documented as of this encounter (statuses as of 07/13/2023) [facility] History of Past illness Narrative* Problem Noted Date Diagnosed Date Resolved Date Acute respiratory failure 06/18/2021 Pain in joint, pelvic region and thigh 10/27/2012 11/28/2012 Enthesopathy of hip region 10/27/2012 0 11/28/2012 Acute gastritis without mention of hemorrhage 02/15/20 09 12/07/2014 Iron deficiency anemia, unspecified 02/14/2009 05/10/2018 documented as of this encounter (statuses as of 07/13/2023) [facility] History of Past illness Narrative* Problem Noted Date Diagnosed Date Resolved Date Acute respiratory failure 06/18/2021 Pain in joint, pelvic region and thigh 10/27/2012 11/28/2012 Enthesopathy of hip region 10/27/2012 0 11/28/2012 Acute gastritis without mention of hemorrhage 02/15/20 09 12/07/2014 Iron deficiency anemia, unspecified 02/14/2009 05/10/2018 documented as of this encounter (statuses as of 07/17/2023) [facility] History of Past illness Narrative* Problem Noted Date Diagnosed Date Resolved Date Acute respiratory failure 06/18/2021 Pain in joint, pelvic region and thigh 10/27/2012 11/28/2012 Enthesopathy of hip region 10/27/2012 0 11/28/2012 Acute gastritis without mention of hemorrhage 02/15/20 09 12/07/2014 Iron deficiency anemia, unspecified 02/14/2009 05/10/2018 documented as of this encounter (statuses as of 07/27/2023) [facility]-10[facility] History of Past illness Narrative* Problem [...] of this encounter (statuses as of 10/07/2023) [facility] History of Past illness Narrative* Problem [...] of this encounter (statuses as of 11/25/2023) [facility] Future Appointments Appointment Date:09/16/2023 02:45:00 PM Scheduled Provider: Location:[facility] Appointment Type:CV OV [facility] Evaluation note* Diagnosis Frequent UTI- Primary Urinary tract infection, site not specified Confusion Unspecified psychosis [facility] Diagnosis Essential hypertension- Primary Unspecified essential hypertension Mixed hyperlipidemia Acquired hypothyroidism Unspecified hypothyroidism History of pulmonary embolism Personal history of pulmonary embolism Gastroesophageal reflux disease without esophagitis Esophageal reflux Osteoarthritis of multiple joints, unspecified osteoarthritis type Medication management Encounter for long-term (current) use of other medications documented in this encounter [facility] note* Diagnosis Osteoarthritis of multiple joints, unspecified osteoarthritis type documented in this encounter [facility] note* Diagnosis Hypoxia- Primary Hypoxemia [facility] Diagnosis Osteoarthritis of multiple joints, unspecified osteoarthritis type documented in this encounter [facility] note* Diagnosis Essential hypertension- Primary Unspecified essential hypertension Mixed hyperlipidemia Gastroesophageal reflux disease without esophagitis Esophageal reflux Acquired hypothyroidism Unspecified hypothyroidism Aortic stenosis, moderate Aortic valve disorders Osteoarthritis of multiple joints, unspecified osteoarthritis type Encounter for immunization Need for other specified prophylactic vaccination against single bacterial disease Advance directive discussed with patient Other specified counseling documented in this encounter [facility] note* Diagnosis Acute cough- Primary Wheezing documented in this encounter [facility] note* Diagnosis Osteoarthritis of multiple joints, unspecified osteoarthritis type documented in this encounter [facility] noteNo assessment information availableWUniversity [facility] Work Phone: Evaluation note* Diagnosis Severe back pain- Primary Backache, unspecified Fall, initial encounter documented in this encounter [facility] note* Diagnosis Urinary frequency- Primary documented in this encounter [facility] note* Diagnosis Sciatica, right side- Primary Fall, subsequent encounter documented in this encounter [facility] note* Diagnosis Chronic low back pain with sciatica, sciatica laterality unspecified, unspecified back pain laterality- Primary Compression fracture of T11 vertebra, initial encounter ([facility]) documented in this encounter [facility] note* Diagnosis Sciatica, right side- Primary Falls, subsequent encounter documented in this encounter [facility] note* Diagnosis Ovarian mass- Primary Unspecified noninflammatory disorder of ovary, fallopian tube, and broad ligament documented in this encounter [facility] note* Diagnosis Preop examination- Primary Preoperative examination, unspecified Ovarian mass Unspecified noninflammatory disorder of ovary, fallopian tube, and broad ligament Preop examination Preoperative examination, unspecified documented in this encounter [facility] note* Diagnosis Ovarian mass Unspecified noninflammatory disorder of ovary, fallopian tube, and broad ligament Preop examination Preoperative examination, unspecified [facility] Ovarian mass Unspecified noninflammatory disorder of ovary, fallopian tube, and broad ligament Preop examination Preoperative examination, unspecified [facility] Diagnosis Pre-op evaluation- Primary Preoperative examination, unspecified Acquired hypothyroidism Unspecified hypothyroidism Essential hypertension Unspecified essential hypertension Gastroesophageal reflux disease without esophagitis Esophageal reflux History of pulmonary embolism Personal history of pulmonary embolism Aortic stenosis, moderate Aortic valve disorders [facility] Diagnosis 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 Malignant neoplasm of ovary Post-operative state Other postprocedural status [facility] Diagnosis 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, NEC [facility] Diagnosis 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 Malignant neoplasm of ovary [facility] Diagnosis Encounter for education- Primary Counseling NOS [facility]* Diagnosis 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 Malignant neoplasm of ovary [facility]* Diagnosis Osteoarthritis of multiple joints, unspecified osteoarthritis type [facility]* Diagnosis 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 Malignant neoplasm of ovary [facility]* Diagnosis Osteoarthritis of multiple joints, unspecified osteoarthritis type [facility]* Diagnosis Pelvic mass Abdominal or pelvic swelling, mass or lump, unspecified site [facility]* Diagnosis Sciatica, right side Fall, subsequent encounter [facility]* Diagnosis 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 neoplasm of ovary [facility]* Diagnosis Osteoarthritis of multiple joints, unspecified osteoarthritis type [facility]* Diagnosis 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 neoplasm of ovary [facility]* Diagnosis 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 neoplasm of ovary [facility]* Diagnosis Osteoarthritis of multiple joints, unspecified osteoarthritis type [facility]* Diagnosis Onset Date Resolution Status Fall acute Generalized weakness acute Rhabdomyolysis acute Urinary tract infection [facility] Work Phone: Evaluation note* Diagnosis Osteoarthritis of multiple joints, unspecified osteoarthritis type documented in this encounter [facility] note* Diagnosis Recurrent UTI (urinary tract infection)- Primary Urinary tract infection, site not specified Essential hypertension Unspecified essential hypertension Malignant neoplasm of ovary, unspecified laterality (HCC) Aortic stenosis, moderate Aortic valve disorders documented in this encounter [facility] note* Diagnosis Recurrent UTI (urinary tract infection)- Primary Urinary tract infection, site not specified documented in this encounter [facility] note* Diagnosis Essential hypertension, malignant- Primary documented in this encounter [facility] note* Diagnosis Recurrent UTI (urinary tract infection)- Primary Urinary tract infection, site not specified documented in this encounter [facility] note* Diagnosis Takotsubo cardiomyopathy- Primary Takotsubo syndrome documented in this encounter [facility] note* Diagnosis Acute cough Wheezing Pre-op evaluation- Primary Preoperative examination, unspecified Acquired hypothyroidism Unspecified hypothyroidism Essential hypertension Unspecified essential hypertension Gastroesophageal reflux disease without esophagitis Esophageal reflux History of pulmonary embolism Personal history of pulmonary embolism Aortic stenosis, moderate Aortic valve disorders documented in this encounter [facility] course Narrative No data available for this section [facility] Hospital Discharge instructions No data available for this section [facility] Progress note No data available for this section [facility] Reason for referral (narrative)* Outpatient Procedure (Routine) - Pending Review Specialty Diagnoses / Procedures Referred By Bella t Referred To Contact [facility] Diagnoses Hypoxia Procedures OXIMETRY WITH AMBULATION NONINVASIVE EAR/PULSE OXIMETRY Carl Jovel MD [address] [place] [address] [facility] [place] [address] [place] [address] Referral ID Status Reason Start Date Expiration Date Visits Requested Visits Authorized [id number] Pending Review Auto-Generat ed Referral 05/01/2022 05/31/2023 1 1 [facility] for referral (narrative)* Diagnostic Procedure Only (Routine) - Closed Specialty Diagnoses / Procedures Referred By Contac t Referred To Contact XR IMAGING Diagnoses Sciatica, right side Fall, subsequent encounter Procedures XR LUMBAR GENERAL 3V AP/LAT/L5-S1 RADEX SPINE LUMBOSACRAL 2/3 VIEWS Kristen Eugene PA-C [address] [place] [address] Xr Imaging Referral ID Status Reason Start Date Expiration Date V isits Requested Visits Authorized [id number] Closed Auto-Generate d Referral 01/27/2023 02/26/2024 1 1 * Physical Therapy (Routine) - Authorized Specialty Diagnoses / Procedures Referred By Contac t Referred To Contact [facility] Diagnoses Sciatica, right side Fall, subsequent encounter Procedures CONSULT TO PHYSICAL THERAPY PHYSICAL THERAPY EVALUATION HIGH COMPLEX 45 MINS THERAPEUTIC EXERCISES RE, EA 15 MIN. Kristen Eugene PA-C [address] [place] [address] [facility] [address] [address] Referral ID Status Reason Start Date Expiration Date Visits Requested Visits Authorized [id number] Authorized Auto-Generat ed Referral 08/09/2022 08/08/2023 20 20 [facility] for referral (narrative)* Outpatient Procedure (Urgent) - Authorized Specialty Diagnoses / Procedures Referred By Contac t Referred To Contact [facility] [place] Diagnoses Preop examination Procedures ECHO ECHO TTHRC R-T 2D W/WOM-MODE COMPL SPEC&[place] [address] [place] [address] [facility] [address] [place] [id number] Referral ID Status Reason Start Date Expiration Date Visits Requested Visits Authorized [id number] Authorized Auto-Generat ed Referral 03/22/2023 03/21/2024 1 1 [facility] for referral (narrative)* Outpatient Procedure (Routine) - Closed Specialty Diagnoses / Procedures Referred By Contac t Referred To Contact [facility] [place] Diagnoses Ovarian mass Preop examination Procedures ECG COMPLETE ECG ROUTINE ECG W/LEAST 12 LDS W/I&R Annmarie Mendoza, [employer] MECH[employer]IC.RESEARCH EPIDEMIOLOGIST [address] [place] [address] [facility] [address] [place] [address] Referral ID Status Reason Start Date Expiration Date V isits Requested Visits Authorized [id number] Closed Auto-Generate d Referral 03/22/2023 03/21/2024 1 1 [facility] for referral (narrative)* Diagnostic Procedure Only (Routine) - Closed Specialty Diagnoses / Procedures Referred By Contac t Referred To Contact XR IMAGING Diagnoses Sciatica, right side Fall, subsequent encounter Procedures XR LUMBAR GENERAL 3V AP/LAT/L5-S1 RADEX SPINE LUMBOSACRAL 2/3 VIEWS Kristen Eugene PA-C [address] [place] [address] [place] [address] Referral ID Status Reason Start Date Expiration Date V isits Requested Visits Authorized [id number] Closed Auto-Generate d Referral 01/27/2023 02/26/2024 1 1 [facility] for referral (narrative)No reason for referral information availableWUniversity [facility] Work Phone: Reason for visit Narrative* Outpatient Procedure (Routine) - Closed Specialty Diagnoses / Procedures Referred By Contac t Referred To Contact [facility] Diagnoses Ovarian mass Preop examination Procedures ECG COMPLETE ECG ROUTINE ECG W/LEAST 12 LDS W/I&R Annmarie Mendoza, AUTO RADIO MECHANIC.RESEARCH EPIDEMIOLOGIST [address] [place] [address] [facility] [place] [address] [place] [address] Referral ID Status Reason Start Date Expiration Date V isits Requested Visits Authorized [id number] Closed Auto-Generate d Referral 03/22/2023 03/21/2024 1 1 [facility]* Diagnostic Procedure Only (Routine) - Closed Specialty Diagnoses / Procedures Referred By Bella t Referred To Contact XR IMAGING Diagnoses Sciatica, right side Fall, subsequent encounter Procedures XR LUMBAR GENERAL 3V AP/LAT/L5-S1 RADEX SPINE LUMBOSACRAL 2/3 VIEWS Kristen Eugene PA-C [address] [place] [address] [place] [address] Referral ID Status Reason Start Date Expiration Date V isits Requested Visits Authorized [id number] Closed Auto-Generate d Referral 01/27/2023 02/26/2024 1 1 [facility] Chief Complaint and Reason for Visit [...] MONTHLY EXAM August 11, 2024 5: 27pm ALF LAB WORK September 03, 2024 1:00pm MONTHLY EXAM September 12, 2024 8 :04pm ALF LAB WORK September 14, 2024 5:00am LABWORK September 18, 2024 5:00am LABWORK September 25, 2024 7:00am NEW CONCERN September 27, 2024 2:16pm ALF LAB WORK September 27 2:30pm LABWORK October 16, 2024 5:0 0am Chief Complaint Admit Date LABWORK August 07, 2024 5:00am MONTHLY EXAM August 11, 2024 5: 27pm ALF LAB WORK September 03, 2024 1:00pm MONTHLY EXAM September 12, 2024 8 :04pm ALF LAB WORK September 14, 2024 5:00am LABWORK September 18, 2024 5:00am LABWORK September 25, 2024 7:00am NEW CONCERN September 27, 2024 2:16pm ALF LAB WORK September 27 2:30pm LABWORK October 16, 2024 5:0 0am MONTHLY EXAM October 19, 2024 9:2 9am LABWORK October 30, 2024 5:0 0am Chief Complaint Admit Date LABWORK August 07, 2024 5:00am MONTHLY EXAM August 11, 2024 5: 27pm ALF LAB WORK September 03, 2024 1:00pm MONTHLY EXAM September 12, 2024 8 :04pm ALF LAB WORK September 14, 2024 5:00am LABWORK September 18, 2024 5:00am LABWORK September 25, 2024 7:00am NEW CONCERN September 27, 2024 2:16pm ALF LAB WORK September 27 2:30pm LABWORK October 16, 2024 5:0 0am MONTHLY EXAM October 19, 2024 9:2 9am LABWORK October 30, 2024 5:0 0am ALF LAB WORK November 02, 2024 5 :00am Advance Directives No Advanced Directives Records Found Advance Directive Response Recorded Date/ Time Living Will No January 12, 2023 1 0:27am Power of Certified Home Health Aide No January 12, 2023 10:27am Name of Medical Power of Certified Home Health Aide ? January 12, 2023 10:26am Advance Directive Response Recorded Date/ Time Living Will No November 23, 2023 8:14am Power of Certified Home Health Aide No November 22 8:14am Advance Directive Response Recorded Date/ Time Living Will No November 23, 2023 12:55pm Power of Certified Home Health Aide No November 22 12:55pm Reason for Referral Specialty Diagnoses / Procedures Referred By Bella cobian Referred To Contact Orthopedics Diagnoses Chronic low back pain with sciatica, sciatica laterality unspecified, unspecified back pain laterality Compression fracture of T11 vertebra, initial encounter ([facility]) Procedures CONSULT TO ORTHOPAEDICS OFFICE/OUTPATIENT [facility] 60-74 MINUTES Kristen Eugene PA-C [address] [place] [address] Referral ID Status Reason Start Date Expiration Date Visits Requested Visits Authorized [id number] Pending Review PCP Requested Referral 02/02/2023 02/02/2024 1 1 Specialty Diagnoses / Procedures Referred By Contac t Referred To Contact Pain Management Diagnoses Chronic low back pain with sciatica, sciatica laterality unspecified, unspecified back pain laterality Compression fracture of T11 vertebra, initial encounter (HCC) Procedures CONSULT TO PAIN MGT OFFICE/OUTPATIENT [facility] 60-74 MINUTES Kristen Eugene PA-C [address] [place] [address] Referral ID Status Reason Start Date Expiration Date Visits Requested Visits Authorized [id number] Pending Review PCP Requested Referral 02/02/2023 02/02/2024 1 1 Specialty Diagnoses / Procedures Referred By Contac t Referred To Contact [facility] Diagnoses Sciatica, right side Falls, subsequent encounter Procedures PT REHAB FOLLOW UP ORDER THERAPEUTIC EXERCISES RE, EA 15 MIN. America Camejo, PT [facility] [place] [address] [place] [address] Referral ID Status Reason Start Date Expiration Date Visits Requested Visits Authorized [id number] Pending Review PCP Requested Referral Auto-Generate d Referral 02/02/2023 05/03/2023 1 1 Specialty Diagnoses / Procedures Referred By Contac t Referred To Contact Diagnoses Ovarian mass Procedures CONSULT TO GYNECOLOGIC/ONCOLOGY OFFICE/OUTPATIENT [facility] 60-74 MINUTES Ely Rico MD [address] [place] [address] Referral ID Status Reason Start Date Expiration Date Visits Requested Visits Authorized [id number] Pending Review PCP Requested Referral Auto-Generate d Referral 03/16/2023 03/15/2024 1 1 Specialty Diagnoses / Procedures Referred By Contac t Referred To Contact Diagnoses 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 (HCC) Procedures CONSULT TO HEMATOLOGY/ONCOLOGY OFFICE/OUTPATIENT [facility] 60-74 MINUTES Annmarie Mendoza APRN.RESEARCH EPIDEMIOLOGIST [address] [place] [address] Wilmar Forbes DO [address] [place] [address] Referral ID Status Reason Start Date Expiration Date Visits Requested Visits Authorized [id number] Pending Review PCP Requested Referral 05/03/2023 05/02/2024 1 1 Specialty Diagnoses / Procedures Referred By Vondaac t Referred To Contact CT IMAG[facility] Diagnoses Pelvic mass Procedures CT ABD/PEL W IVCON CT ABD & PELVIS W/CONTRAST Carl Encarnacion MD [address] [place] [address] [place] [address] Referral ID Status Reason Start Date Expiration Date V isits Requested Visits Authorized [id number] Closed Auto-Generate d Referral 02/26/2023 03/27/2024 1 1 Specialty Diagnoses / Procedures Referred By Contac t Referred To Contact Diagnoses Osteoarthritis of multiple joints, unspecified osteoarthritis type Kristen Eugene PA-C [address] [place] [address] Referral ID Status Reason Start Date Expiration Date Visits Re quested Visits Authorized [id number] Closed 1 1 Summary Purpose Family History [...] or prosecute any alcohol or drug abuse patient.[facility]In the event this information is protected by the Federal Confidentiality of Alcohol and Drug Abuse Patient Records regulations: The Federal rules restrict any use of the information to criminally investigate or prosecute any alcohol or drug abuse patient.[facility] HospitalIn the event this information is protected by the Federal Confidentiality of Alcohol and Drug Abuse Patient Records regulations: The Federal rules restrict any use of the information to criminally investigate or prosecute any alcohol or drug abuse patient.[facility] HospitalIn the event this information is protected by the Federal Confidentiality of Alcohol and Drug Abuse Patient Records regulations: The Federal rules restrict any use of the information to criminally investigate or prosecute any alcohol or drug abuse patient.[facility] HospitalIn the event this information is protected by the Federal Confidentiality of Alcohol and Drug Abuse Patient Records regulations: The Federal rules restrict any use of the information to criminally investigate or prosecute any alcohol or drug abuse patient.[facility] HospitalIn the event this information is protected by the Federal Confidentiality of Alcohol and Drug Abuse Patient Records regulations: The Federal rules restrict any use of the information to criminally investigate or prosecute any alcohol or drug abuse patient.[facility] HospitalIn the event this information is protected by the Federal Confidentiality of Alcohol and Drug Abuse Patient Records regulations: The Federal rules restrict any use of the information to criminally investigate or prosecute any alcohol or drug abuse patient.[facility] HospitalIn the event this information is protected by the Federal Confidentiality of Alcohol and Drug Abuse Patient Records regulations: The Federal rules restrict any use of the information to criminally investigate or prosecute any alcohol or drug abuse patient.[facility] HospitalIn the event this information is protected by the Federal Confidentiality of Alcohol and Drug Abuse Patient Records regulations: The Federal rules restrict any use of the information to criminally investigate or prosecute any alcohol or drug abuse patient.[facility] HospitalIn the event this information is protected by the Federal Confidentiality of Alcohol and Drug Abuse Patient Records regulations: The Federal rules restrict any use of the information to criminally investigate or prosecute any alcohol or drug abuse patient.[facility] HospitalIn the event this information is protected by the Federal Confidentiality of Alcohol and Drug Abuse Patient Records regulations: The Federal rules restrict any use of the information to criminally investigate or prosecute any alcohol or drug abuse patient.[facility] HospitalIn the event this information is protected by the Federal Confidentiality of Alcohol and Drug Abuse Patient Records regulations: The Federal rules restrict any use of the information to criminally investigate or prosecute any alcohol or drug abuse patient.[facility] HospitalIn the event this information is protected by the Federal Confidentiality of Alcohol and Drug Abuse Patient Records regulations: The Federal rules restrict any use of the information to criminally investigate or prosecute any alcohol or drug abuse patient.[facility] HospitalIn the event this information is protected by the Federal Confidentiality of Alcohol and Drug Abuse Patient Records regulations: The Federal rules restrict any use of the information to criminally investigate or prosecute any alcohol or drug abuse patient.[facility] HospitalIn the event this information is protected by the Federal Confidentiality of Alcohol and Drug Abuse Patient Records regulations: The Federal rules restrict any use of the information to criminally investigate or prosecute any alcohol or drug abuse patient.[facility] HospitalIn the event this information is protected by the Federal Confidentiality of Alcohol and Drug Abuse Patient Records regulations: The Federal rules restrict any use of the information to criminally investigate or prosecute any alcohol or drug abuse patient.[facility] HospitalIn the event this information is protected by the Federal Confidentiality of Alcohol and Drug Abuse Patient Records regulations: The Federal rules restrict any use of the information to criminally investigate or prosecute any alcohol or drug abuse patient.[facility] HospitalIn the event this information is protected by the Federal Confidentiality of Alcohol and Drug Abuse Patient Records regulations: The Federal rules restrict any use of the information to criminally investigate or prosecute any alcohol or drug abuse patient.[facility] HospitalIn the event this information is protected by the Federal Confidentiality of Alcohol and Drug Abuse Patient Records regulations: The Federal rules restrict any use of the information to criminally investigate or prosecute any alcohol or drug abuse patient.[facility] HospitalIn the event this information is protected by the Federal Confidentiality of Alcohol and Drug Abuse Patient Records regulations: The Federal rules restrict any use of the information to criminally investigate or prosecute any alcohol or drug abuse patient.[facility] HospitalIn the event this information is protected by the Federal Confidentiality of Alcohol and Drug Abuse Patient Records regulations: The Federal rules restrict any use of the information to criminally investigate or prosecute any alcohol or drug abuse patient.[facility] HospitalIn the event this information is protected by the Federal Confidentiality of Alcohol and Drug Abuse Patient Records regulations: The Federal rules restrict any use of the information to criminally investigate or prosecute any alcohol or drug abuse patient.[facility] HospitalIn the event this information is protected by the Federal Confidentiality of Alcohol and Drug Abuse Patient Records regulations: The Federal rules restrict any use of the information to criminally investigate or prosecute any alcohol or drug abuse patient.[facility] HospitalIn the event this information is protected by the Federal Confidentiality of Alcohol and Drug Abuse Patient Records regulations: The Federal rules restrict any use of the information to criminally investigate or prosecute any alcohol or drug abuse patient.[facility] HospitalIn the event this information is protected by the Federal Confidentiality of Alcohol and Drug Abuse Patient Records regulations: The Federal rules restrict any use of the information to criminally investigate or prosecute any alcohol or drug abuse patient.[facility] HospitalIn the event this information is protected by the Federal Confidentiality of Alcohol and Drug Abuse Patient Records regulations: The Federal rules restrict any use of the information to criminally investigate or prosecute any alcohol or drug abuse patient.[facility] HospitalIn the event this information is protected by the Federal Confidentiality of Alcohol and Drug Abuse Patient Records regulations: The Federal rules restrict any use of the information to criminally investigate or prosecute any alcohol or drug abuse patient.[facility] HospitalIn the event this information is protected by the Federal Confidentiality of Alcohol and Drug Abuse Patient Records regulations: The Federal rules restrict any use of the information to criminally investigate or prosecute any alcohol or drug abuse patient.[facility] HospitalIn the event this information is protected by the Federal Confidentiality of Alcohol and Drug Abuse Patient Records regulations: The Federal rules restrict any use of the information to criminally investigate or prosecute any alcohol or drug abuse patient.[facility] the event this information is protected by the Federal Confidentiality of Alcohol and Drug Abuse Patient Records regulations: The Federal rules restrict any use of the information to criminally investigate or prosecute any alcohol or drug abuse patient.[facility] HospitalIn the event this information is protected by the Federal Confidentiality of Alcohol and Drug Abuse Patient Records regulations: The Federal rules restrict any use of the information to criminally investigate or prosecute any alcohol or drug abuse patient.[facility] HospitalIn the event this information is protected by the Federal Confidentiality of Alcohol and Drug Abuse Patient Records regulations: The Federal rules restrict any use of the information to criminally investigate or prosecute any alcohol or drug abuse patient.[facility] HospitalIn the event this information is protected by the Federal Confidentiality of Alcohol and Drug Abuse Patient Records regulations: The Federal rules restrict any use of the information to criminally investigate or prosecute any alcohol or drug abuse patient.[facility] HospitalIn the event this information is protected by the Federal Confidentiality of Alcohol and Drug Abuse Patient Records regulations: The Federal rules restrict any use of the information to criminally investigate or prosecute any alcohol or drug abuse patient.[facility] HospitalIn the event this information is protected by the Federal Confidentiality of Alcohol and Drug Abuse Patient Records regulations: The Federal rules restrict any use of the information to criminally investigate or prosecute any alcohol or drug abuse patient.[facility] HospitalIn the event this information is protected by the Federal Confidentiality of Alcohol and Drug Abuse Patient Records regulations: The Federal rules restrict any use of the information to criminally investigate or prosecute any alcohol or drug abuse patient.[facility] HospitalIn the event this information is protected by the Federal Confidentiality of Alcohol and Drug Abuse Patient Records regulations: The Federal rules restrict any use of the information to criminally investigate or prosecute any alcohol or drug abuse patient.[facility] HospitalIn the event this information is protected by the Federal Confidentiality of Alcohol and Drug Abuse Patient Records regulations: The Federal rules restrict any use of the information to criminally investigate or prosecute any alcohol or drug abuse patient.[facility] HospitalIn the event this information is protected by the Federal Confidentiality of Alcohol and Drug Abuse Patient Records regulations: The Federal rules restrict any use of the information to criminally investigate or prosecute any alcohol or drug abuse patient.[facility] HospitalIn the event this information is protected by the Federal Confidentiality of Alcohol and Drug Abuse Patient Records regulations: The Federal rules restrict any use of the information to criminally investigate or prosecute any alcohol or drug abuse patient.[facility] HospitalIn the event this information is protected by the Federal Confidentiality of Alcohol and Drug Abuse Patient Records regulations: The Federal rules restrict any use of the information to criminally investigate or prosecute any alcohol or drug abuse patient.[facility] HospitalIn the event this information is protected by the Federal Confidentiality of Alcohol and Drug Abuse Patient Records regulations: The Federal rules restrict any use of the information to criminally investigate or prosecute any alcohol or drug abuse patient.[facility] HospitalIn the event this information is protected by the Federal Confidentiality of Alcohol and Drug Abuse Patient Records regulations: The Federal rules restrict any use of the information to criminally investigate or prosecute any alcohol or drug abuse patient.[facility] HospitalIn the event this information is protected by the Federal Confidentiality of Alcohol and Drug Abuse Patient Records regulations: The Federal rules restrict any use of the information to criminally investigate or prosecute any alcohol or drug abuse patient.[facility] HospitalIn the event this information is protected by the Federal Confidentiality of Alcohol and Drug Abuse Patient Records regulations: The Federal rules restrict any use of the information to criminally investigate or prosecute any alcohol or drug abuse patient.[facility] HospitalIn the event this information is protected by the Federal Confidentiality of Alcohol and Drug Abuse Patient Records regulations: The Federal rules restrict any use of the information to criminally investigate or prosecute any alcohol or drug abuse patient.[facility] HospitalIn the event this information is protected by the Federal Confidentiality of Alcohol and Drug Abuse Patient Records regulations: The Federal rules restrict any use of the information to criminally investigate or prosecute any alcohol or drug abuse patient.[facility] HospitalIn the event this information is protected by the Federal Confidentiality of Alcohol and Drug Abuse Patient Records regulations: The Federal rules restrict any use of the information to criminally investigate or prosecute any alcohol or drug abuse patient.[facility] HospitalIn the event this information is protected by the Federal Confidentiality of Alcohol and Drug Abuse Patient Records regulations: The Federal rules restrict any use of the information to criminally investigate or prosecute any alcohol or drug abuse patient.[facility] HospitalIn the event this information is protected by the Federal Confidentiality of Alcohol and Drug Abuse Patient Records regulations: The Federal rules restrict any use of the information to criminally investigate or prosecute any alcohol or drug abuse patient.[facility] HospitalIn the event this information is protected by the Federal Confidentiality of Alcohol and Drug Abuse Patient Records regulations: The Federal rules restrict any use of the information to criminally investigate or prosecute any alcohol or drug abuse patient.[facility] HospitalIn the event this information is protected by the Federal Confidentiality of Alcohol and Drug Abuse Patient Records regulations: The Federal rules restrict any use of the information to criminally investigate or prosecute any alcohol or drug abuse patient.[facility] HospitalIn the event this information is protected by the Federal Confidentiality of Alcohol and Drug Abuse Patient Records regulations: The Federal rules restrict any use of the information to criminally investigate or prosecute any alcohol or drug abuse patient.[facility] HospitalIn the event this information is protected by the Federal Confidentiality of Alcohol and Drug Abuse Patient Records regulations: The Federal rules restrict any use of the information to criminally investigate or prosecute any alcohol or drug abuse patient.[facility] HospitalIn the event this information is protected by the Federal Confidentiality of Alcohol and Drug Abuse Patient Records regulations: The Federal rules restrict any use of the information to criminally investigate or prosecute any alcohol or drug abuse patient.[facility] HospitalIn the event this information is protected by the Federal Confidentiality of Alcohol and Drug Abuse Patient Records regulations: The Federal rules restrict any use of the information to criminally investigate or prosecute any alcohol or drug abuse patient.[facility] HospitalIn the event this information is protected by the Federal Confidentiality of Alcohol and Drug Abuse Patient Records regulations: The Federal rules restrict any use of the information to criminally investigate or prosecute any alcohol or drug abuse patient.[facility] HospitalIn the event this information is protected by the Federal Confidentiality of Alcohol and Drug Abuse Patient Records regulations: The Federal rules restrict any use of the information to criminally investigate or prosecute any alcohol or drug abuse patient.[facility] HospitalIn the event this information is protected by the Federal Confidentiality of Alcohol and Drug Abuse Patient Records regulations: The Federal rules restrict any use of the information to criminally investigate or prosecute any alcohol or drug abuse patient.[facility] HospitalIn the event this information is protected by the Federal Confidentiality of Alcohol and Drug Abuse Patient Records regulations: The Federal rules restrict any use of the information to criminally investigate or prosecute any alcohol or drug abuse patient.[facility] HospitalIn the event this information is protected by the Federal Confidentiality of Alcohol and Drug Abuse Patient Records regulations: The Federal rules restrict any use of the information to criminally investigate or prosecute any alcohol or drug abuse patient.[facility] HospitalIn the event this information is protected by the Federal Confidentiality of Alcohol and Drug Abuse Patient Records regulations: The Federal rules restrict any use of the information to criminally investigate or prosecute any alcohol or drug abuse patient.[facility] HospitalIn the event this information is protected by the Federal Confidentiality of Alcohol and Drug Abuse Patient Records regulations: The Federal rules restrict any use of the information to criminally investigate or prosecute any alcohol or drug abuse patient.[facility] HospitalIn the event this information is protected by the Federal Confidentiality of Alcohol and Drug Abuse Patient Records regulations: The Federal rules restrict any use of the information to criminally investigate or prosecute any alcohol or drug abuse patient.[facility] HospitalIn the event this information is protected by the Federal Confidentiality of Alcohol and Drug Abuse Patient Records regulations: The Federal rules restrict any use of the information to criminally investigate or prosecute any alcohol or drug abuse patient.[facility] HospitalIn the event this information is protected by the Federal Confidentiality of Alcohol and Drug Abuse Patient Records regulations: The Federal rules restrict any use of the information to criminally investigate or prosecute any alcohol or drug abuse patient.[facility] HospitalIn the event this information is protected by the Federal Confidentiality of Alcohol and Drug Abuse Patient Records regulations: The Federal rules restrict any use of the information to criminally investigate or prosecute any alcohol or drug abuse patient.[facility] HospitalIn the event this information is protected by the Federal Confidentiality of Alcohol and Drug Abuse Patient Records regulations: The Federal rules restrict any use of the information to criminally investigate or prosecute any alcohol or drug abuse patient.[facility] HospitalIn the event this information is protected by the Federal Confidentiality of Alcohol and Drug Abuse Patient Records regulations: The Federal rules restrict any use of the information to criminally investigate or prosecute any alcohol or drug abuse patient.[facility] HospitalIn the event this information is protected by the Federal Confidentiality of Alcohol and Drug Abuse Patient Records regulations: The Federal rules restrict any use of the information to criminally investigate or prosecute any alcohol or drug abuse patient.[facility] HospitalIn the event this information is protected by the Federal Confidentiality of Alcohol and Drug Abuse Patient Records regulations: The Federal rules restrict any use of the information to criminally investigate or prosecute any alcohol or drug abuse patient.[facility] HospitalIn the event this information is protected by the Federal Confidentiality of Alcohol and Drug Abuse Patient Records regulations: The Federal rules restrict any use of the information to criminally investigate or prosecute any alcohol or drug abuse patient.[facility] HospitalIn the event this information is protected by the Federal Confidentiality of Alcohol and Drug Abuse Patient Records regulations: The Federal rules restrict any use of the information to criminally investigate or prosecute any alcohol or drug abuse patient.[facility] HospitalIn the event this information is protected by the Federal Confidentiality of Alcohol and Drug Abuse Patient Records regulations: The Federal rules restrict any use of the information to criminally investigate or prosecute any alcohol or drug abuse patient.[facility] HospitalIn the event this information is protected by the Federal Confidentiality of Alcohol and Drug Abuse Patient Records regulations: The Federal rules restrict any use of the information to criminally investigate or prosecute any alcohol or drug abuse patient.[facility] Hospital[facility] the event this information is protected by the [facility] Confidentiality of Alcohol and Drug Abuse Patient Records regulations: The Federal rules restrict any use of the information to criminally investigate or prosecute any alcohol or drug abuse patient.[facility] HospitalIn the event this information is protected by the Federal Confidentiality of Alcohol and Drug Abuse Patient Records regulations: The Federal rules restrict any use of the information to criminally investigate or prosecute any alcohol or drug abuse patient.[facility] Reason for Visit (unrecogniz ed section and content) Reason Comments Results Reason Comments urine culture Reason Onset Date Comments Refill Request 11/28/2021 Reason Comments Follow Up Specialty Diagnoses / Procedures Referred By Contac t Referred To Contact Family Practice / FAMILY MEDICINE Diagnoses 4 month f/u Procedures 4C EST Kristen Eugene PA-C [address] [place] [address] Carl Encarnacion MD [address] [place] [address] Referral ID Status Reason Start Date Expiration Date V isits Requested Visits Authorized [id number] New Request 12/12/2021 03/12/2022 1 1 Reason [...] EA 15 MIN. Kristen Eugene PA-C [address] [place] [address] [facility] [address] [place] [address] Referral ID Status Reason Start Date Expiration Date Visits Requested Visits Authorized [id number] Authorized Auto-Generat ed Referral 08/09/2022 08/08/2023 20 20 Reason Onset Date Comments Refill Request 02/08/2023 Reason Comments Referral Information Reason Comments Pre op instructions Reason Comments Results Reason Comments Appointment Reason Comments Patient Update Reason Comments Anesthesia Consult Preop evaluation Reason Comments home health calling Reason Comments Post Op Reason Comments Nursing Plan of Care Reason Comments Sample Case Porter - Other Introduction Reason Comments New Patient Specialty Diagnoses / Procedures Referred By Contac t Referred To Contact Diagnoses 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 (HCC) Procedures CONSULT TO HEMATOLOGY/ONCOLOGY OFFICE/OUTPATIENT NEW HIGH MDM 60-74 MINUTES Annmarie Mendoza, AUTO RADIO MECHANIC.RESEARCH EPIDEMIOLOGIST [address] [place] [address] Wilmar Forbes, [address] [place] [address] Referral ID Status Reason Start Date Expiration Date Visits Requested Visits Authorized [id number] Pending Review PCP Requested Referral 05/03/2023 05/02/2024 1 1 Reason Comments First Time Treatment Education Carboplat in Reason Comments AVS 06/02/23, CHEMO START Reason Onset Date Comments Refill Request 06/07/2023 Reason Comments Sample Case Porter - Other Orders Reason Comments Sample Case Porter - Other C1D1 Post Treat ment Call (Carboplatin) Reason Comments Medication Problem Reason Comments Radiology CT Specialty Diagnoses / Procedures Referred By Bella cobian Referred To Contact CT IMAGING Diagnoses Pelvic mass Procedures CT ABD/PEL W IVCON CT ABD & PELVIS W/CONTRAST Carl Encarnacion MD [address] [place] [address] [address] [place] [address] Referral ID Status Reason Start Date Expiration Date V isits Requested Visits Authorized [id number] Closed Auto-Generate d Referral 02/26/2023 03/27/2024 1 1 Reason Comments Sample Case Porter - Other Toxicity Check (Carboplatin) Reason Comments Established Patient Reason Onset Date Comments Refill Request 10/07/2023 Reason Comments Hospital Admission Reason Onset Date Comments Refill Request 12/06/2023 Reason Comments [facility]-verbal ordes requeted Reason Comments ER F/U Seen 11/22 at [facility] for fall at home and admitted for Rhabdomyolysis Reason Comments Patient Update from PT [facility] Reason Comments Ext / Discharge Summary Reason Onset Date Comments Refill Request 01/04/2024 Reason Comments OT Update Reason Comments Outside Heart Cath Reason Onset Date Comments Refill Request 02/15/2024 Care Teams (unrecognized sec tion and content) Data Programmer Relationship Specialty Start Date End Date Carl Encarnacion MD [address] [place] [id number] PCP - General Family Practice 03/12/15 Data Programmer Relationship Specialty Start Date End Date Carl Encarnacion MD [address] [place] [address] PCP - General Family Practice 03/12/15 Data Programmer Relationship Specialty Start Date End Date Carl Encarnacion MD [address] [place] [address] PCP - General Family Practice 03/12/15 Data Programmer Relationship Specialty Start Date End Date Carl Encarnacion MD [address] [place] [address] PCP - General Family Practice 03/12/15 Data Programmer Relationship Specialty Start Date End Date Carl Encarnacion MD [address] [facility] [place] [address] PCP - General Family Practice 03/12/15 Data Programmer Relationship Specialty Start Date End Date Carl Encarnacion MD [address] [facility] [place] [address] PCP - General Family Medicine 03/12/15 Data Programmer Relationship Specialty Start Date End Date Carl Encarnacion MD [address] [place] [address], [place] [address] PCP - General Family Medicine 03/12/15 Data Programmer Relationship Specialty Start Date End Date Carl Encarnacion MD [address] [place] [address], [place] [address] PCP - General Family Medicine 03/12/15 Data Programmer Relationship Specialty Start Date End Date Carl Encarnacion MD [facility] [facility] [place] [address] PCP - General Family Medicine 03/12/15 Data Programmer Relationship Specialty Start Date End Date Carl Encarnacion MD [address] [place] [address], [place] [address] PCP - General Family Medicine 03/12/15 Data Programmer Relationship Specialty Start Date End Date Carl Encarnacion MD [address] [place] [address], [place] [address] PCP - General Family Medicine 03/12/15 Data Programmer Relationship Specialty Start Date End Date Carl Encarnacion MD [address] [place] [address], [place] [address] PCP - General Family Medicine 03/12/15 Data Programmer Relationship Specialty Start Date End Date Carl Encarnacion MD [address] [place] [address], [place] [address] PCP - General Family Medicine 03/12/15 Data Programmer Relationship Specialty Start Date End Date Carl Encarnacion MD [address] [facility] [place] [address] PCP - General Family Medicine 03/12/15 Data Programmer Relationship Specialty Start Date End Date Carl Encarnacion MD [address] [facility] [place] [address] PCP - General Family Medicine 03/12/15 Team Status: Active Member Role Status Dates Raciel Zuleta Family Provider Active Dr. Carl Encarnacion MD Primary Care Provider Active Team Status: Inactive Member Role Status Dates Dr. Carl Encarnacion MD Primary Care Provider Active Dr. Abdiel Shaikh , DO Emergency Provider Active Data Programmer Relationship Specialty Start Date End Date Carl Encarnacion MD [address] [facility] [place] [address] PCP - General Family Medicine 03/12/15 Data Programmer Relationship Specialty Start Date End Date Carl Encarnacion MD 0 [facility] [place] [address] PCP - General Family Medicine 03/12/15 Data Programmer Relationship Specialty Start Date End Date Carl Encarnacion MD 0 [facility] [place] [address] PCP - General Family Medicine 03/12/15 Data Programmer Relationship Specialty Start Date End Date Carl Encarnacion MD [address] [facility] [place] [address] PCP - General Family Medicine 03/12/15 Data Programmer Relationship Specialty Start Date End Date Carl Encarnacion MD 0 [facility] [place] [address] PCP - General Family Medicine 03/12/15 Team Status: Inactive Member Role Status Dates Dr. Carl Encarnacion MD Primary Care Provider Active Dr. Abdiel Shaikh DO Attending Provider, Emergency P lena Active Team Status: Inactive Member Role Status Dates Dr. Carl Encarnacion MD Primary Care Provider Active Dr. Carl Hawkins , Attending Provider, Referring P lena Active Data Programmer Relationship Specialty Start Date End Date Carl Encarnacion MD [address] [place] [address] PCP - General Family Medicine 03/12/15 Data Programmer Relationship Specialty Start Date End Date Carl Encarnacion MD [address] [place] [address] PCP - General Family Medicine 03/12/15 Data Programmer Relationship Specialty Start Date End Date Carl Encarnacion MD [address] [place] [address] PCP - General Family Medicine 03/12/15 Data Programmer Relationship Specialty Start Date End Date Carl Encarnacion MD [address] [place] [address] PCP - General Family Medicine 03/12/15 Data Programmer Relationship Specialty Start Date End Date Carl Encarnacion MD [address] [place] [address] PCP - General Family Medicine 03/12/15 Data Programmer Relationship Specialty Start Date End Date Carl Encarnacion MD [address] [place] [address] PCP - General Family Medicine 03/12/15 Data Programmer Relationship Specialty Start Date End Date Carl Encarnacion MD [address] [place] [address] PCP - General Family Medicine 03/12/15 Data Programmer Relationship Specialty Start Date End Date Carl Encarnacion MD [address] [place] [address] PCP - General Family Medicine 03/12/15 Data Programmer Relationship Specialty Start Date End Date Carl Encarnacion MD [address] [place] [address] PCP - General Family Medicine 03/12/15 Data Programmer Relationship Specialty Start Date End Date Carl Encarnacion MD [address] [place] [address] PCP - General Family Medicine 03/12/15 Data Programmer Relationship Specialty Start Date End Date Carl Encarnacion MD [address] [place] [address] PCP - General Family Medicine 03/12/15 Data Programmer Relationship Specialty Start Date End Date Carl Encarnacion MD [address] [place] [address] PCP - General Family Medicine 03/12/15 Data Programmer Relationship Specialty Start Date End Date Carl Encarnacion MD [address] [place] [address] PCP - General Family Medicine 03/12/15 Data Programmer Relationship Specialty Start Date End Date Carl Encarnacion MD [address] [place] [address] PCP - General Family Medicine 03/12/15 Data Programmer Relationship Specialty Start Date End Date Carl Encarnacion MD [address] [place] [address] PCP - General Family Medicine 03/12/15 Data Programmer Relationship Specialty Start Date End Date Carl Encarnacion MD [address] [facility] [place] [address] PCP - General Family Medicine 03/12/15 Korin Mantilla RN Specialty Sample Case Porter Oncology 06/07/23 Wilmar Forbes DO [address] [facility] [place] [address] Hematology/Oncology 06/07/23 Data Programmer Relationship Specialty Start Date End Date Carl Encarnacion MD [address] [facility] [place] [address] PCP - General Family Medicine 03/12/15 Korin Mantilla RN Specialty Sample Case Porter Oncology 06/07/23 Wilmar Forbes DO [address] [facility] [place] [address] Hematology/Oncology 06/07/23 Data Programmer Relationship Specialty Start Date End Date Carl Encarnacion MD [address] [facility] [place] [address] PCP - General Family Medicine 03/12/15 Korin Mantilla RN Specialty Sample Case Porter Oncology 06/07/23 Wilmar Forbes DO [address] [facility] [place] [address] Hematology/Oncology 06/07/23 Data Programmer Relationship Specialty Start Date End Date Carl Encarnacion MD [address] [facility] [place] [address] PCP - General Family Medicine 03/12/15 Korin Mantilla RN Specialty Sample Case [facility] Oncology 06/07/23 Wilmar Forbes DO [address] [place] [address] Hematology/Oncology 06/07/23 Data Programmer Relationship Specialty Start Date End Date Carl Encarnacion MD [address] [place] [address] PCP - General Family Medicine 03/12/15 Data Programmer Relationship Specialty Start Date End Date Carl Encarnacion MD [address] [place] [address] PCP - General Family Medicine 03/12/15 Data Programmer Relationship Specialty Start Date End Date Carl Encarnacion MD [address] [place] [address] PCP - General Family Medicine 03/12/15 Data Programmer Relationship Specialty Start Date End Date Carl Encarnacion MD [address] [place] [address] PCP - General Family Medicine 03/12/15 Korin Mantilla RN Specialty Sample Case Porter Oncology 06/07/23 Wilmar Forbes DO [address] [place] [address] Hematology/Oncology 06/07/23 Data Programmer Relationship Specialty Start Date End Date Carl Encarnacion MD [address] [place] [address] PCP - General Family Medicine 03/12/15 Korin Mantilla RN Specialty Sample Case Porter Oncology 06/07/23 Wilmar Forbes DO [address] [facility] [place] [address] Hematology/Oncology 06/07/23 Data Programmer Relationship Specialty Start Date End Date Carl Encarnacion MD [address] [facility] [place] [address] PCP - General Family Medicine 03/12/15 Korin Mantilla RN Specialty Sample Case Porter Oncology 06/07/23 Wilmar Forbes DO [address] [facility] [place] [address] Hematology/Oncology 06/07/23 Data Programmer Relationship Specialty Start Date End Date Carl Encarnacion MD [address] [facility] [address] PCP - General Family Medicine 03/12/15 Korin Mantilla RN Specialty Sample Case Porter Oncology 06/07/23 Wilmar Forbes DO [address] [facility] [place] [address] Hematology/Oncology 06/07/23 Data Programmer Relationship Specialty Start Date End Date Carl Encarnacion MD [address] [facility] [address] PCP - General Family Medicine 03/12/15 Korin Mantilla RN Specialty Sample Case Porter Oncology 06/07/23 Wilmar Forbes DO [address] [facility] [place] [address] Hematology/Oncology 06/07/23 Team Status: Active Member Role Status Dates Dr. Carl Encarnacion MD Primary Care Provider Active Dr. Smith Ho MD Emergency Provider Active Dr. Kelby Aguilar DO Admit Provider, Attending Provider Active Data Programmer Relationship Specialty Start Date End Date Carl Encarnacion MD [address] [place] [address] PCP - General Family Medicine 03/12/15 Korin Mantilla RN Specialty Sample Case Porter Oncology 06/07/23 Wilmar Forbes DO [address] [place] [address] Hematology/Oncology 06/07/23 Team Status: Active Member Role Status Dates Dr. Carl Encarnacion MD Primary Care Provider Active Dr. Smith Ho MD Emergency Provider Active Dr. Kelby Aguilar , DO Admit Provi wood, Attending Provider, Other Provider Active Team Status: Inactive Member Role Status Dates Dr. Carl Encarnacion MD Primary Care Provider Active Dr. Smith Ho MD Emergency Provider Active Dr. Kelby Aguilar , DO Admit Provider, Attending Provider Active Data Programmer Relationship Specialty Start Date End Date Carl Encarnacion MD [address] [place] [address] PCP - General Family Medicine 03/12/15 Korin Mantilla RN Specialty Sample Case Porter Oncology 06/07/23 Wilmar Forbes DO [address] [place] [address] Hematology/Oncology 06/07/23 Data Programmer Relationship Specialty Start Date End Date Carl Encarnacion MD [address] [place] [address] PCP - General Family Medicine 03/12/15 Korin Mantilla RN Specialty Sample Case Porter Oncology 06/07/23 Wilmar Forbes DO [address] [place] [address] Hematology/Oncology 06/07/23 Data Programmer Relationship Specialty Start Date End Date Carl Encarnacion MD [address] [facility] [address] PCP - General Family Medicine 03/12/15 Korin Mantilla RN Specialty Sample Case Porter Oncology 06/07/23 Wilmar Forbes DO [address] [facility] [address] Hematology/Oncology 06/07/23 Data Programmer Relationship Specialty Start Date End Date Carl Encarnacion MD [address] [facility] [address] PCP - General Family Medicine 03/12/15 Korin Mantilla RN Specialty Sample Case Porter Oncology 06/07/23 Wilmar Forbes DO [address] [facility] [place] [address] Hematology/Oncology 06/07/23 Data Programmer Relationship Specialty Start Date End Date Carl Encarnacion MD [address] [place] [address] PCP - General Family Medicine 03/12/15 Team Status: Active Member Role Status Dates Dr. Carl Encarnacion MD Primary Care Provider Active Start: August 07, 2024 Lasha VASQUEZ MD Attending Provider Active Start: August 07, 2024 Team Status: Inactive Member Role Status Dates Dr. Carl Encarnacion MD Primary Care Provider Active Start: August 11, 2024 End: August 11, 2024 Savi Tavares [employer], [employer] Attending Provider Active Start: August 11, 2024 [...] End: September 27, 2024 Savi Tavares NP, [employer] Attending Provider Active Start: September 27, 2024 [...] section and content) DATE CREATED AUTHOR 03/25/2023 [facility] DATE CREATED AUTHOR AUTHOR'S ORGANIZ ATION 01/22/2024 [facility] DATE CREATED AUTHOR AUTHOR'S ORGANIZ ATION 03/27/2024 [facility] DATE CREATED AUTHOR AUTHOR'S ORGANIZ ATION 04/06/2024 [facility] DATE CREATED AUTHOR AUTHOR'S ORGANIZ ATION 08/21/2024 [facility] DATE CREATED AUTHOR AUTHOR'S ORGANIZ ATION 01/20/2025 [facility] FOR RECORDS PERTAINING TO PATIENTS WHO ARE [...] BE BASED ON THE PRIMARY CLINICAL RECORDS. [facility] provides no warranty or guarantee of the accuracy or completeness of information in this document.
[2025-01-22 09:08] LABS: Cholesterol 160 mg/dL (<=200); High Density Lipoprotein 75 mg/dL; Low Density Lipoprotein Calc. 59 mg/dL; Triglycerides 127 mg/dL; Very Low Density Lipoprotein 25 mg/dL (5-40); cholesterol:hdl ratio screen 2.12
== END ==
LOC: OLS.WHLEAS 05:00
PROVIDERS: PCP Family Medicine; Visit Provider Internal Medicine
DX: E03.9 Hypothyroidism, unspecified (principal); I10 Essential (primary) hypertension; E78.5 Hyperlipidemia, unspecified
CPT/HCPCS: 36415; 80061; 84443

== ENCOUNTER → 2025-02-19 | Outpatient (REF) | payer MEDICARE, MEDICAID, SELFPAY ==
--- OUTSIDE RECORDS SUMMARY | 2025-02-19 04:53 | XMS RPT_ITS | CCD ---
Author Organization [facility] Care Team Providers Care Supervisor [employer] Name Role Phone Carl Encarnacion MD Primary Care Provider [phone] Carl Encarnacion MD Primary Care Provider [phone] Jose Rafael RN, Korin Unavailable Unavailable Wilmar Forbes DO Unavailable JAKE MOREJON, EKATERINA Rhodes Primary Care Physician Dr. Carl Encarnacion Primary Care Provider Dr. Smith Ho Emergency Provider Dr. Kelby Aguilar Admit Provider Dr. Kelby Aguilar Attending Provider [phone] Dr. Kelby Aguilar Other Provider Carl Encarnacion MD Primary Care Provider DARCI MSN, YARD TRUCK DRIVER, [facility] Primary Care Physici an Carl Encarnacion [...] Referring Unavailable ELIOT CASTILLO Attending Unavailable AMADEO MOREOJN FACP, USMAN Jorge Admitting Unavail able SUPPAN MSN, YARD TRUCK DRIVER, ESTER Primary Care Unav ailable PLUNK DO, ANNELIESE Attending Unavailable AMADEO MOREJON FACP, USMAN Jorge Admitting Unavail able SUPPAN MSN, YARD TRUCK DRIVER, ESTER Primary Care Unav ailable PLUNK DO, ANNELIESE Attending Unavailable CARL ENCARNACION MD Attending Unavailable SUPPAN MSN, YARD TRUCK DRIVER, ESTER Primary Care Unav ailable PLUNK DOANNELIESE Admitting Unavailable SUPPAN MSN, YARD TRUCK DRIVER, ESTER Primary Care Unav ailable ESTELA VICENTE [...] FERNANDEZ-KACI, STEFANO L Admitting Donaldo BEJARANO MSN, YARD TRUCK DRIVER, [facility] Primary Care Unav ailable ANNELIESE CHAIREZ DO Attending Unavailable ASHOK WALLER MD, DR RAYMUNDO Attending Unav ailable DARCI MSN, YARD TRUCK DRIVER, [facility] Care Unav wayne [facility] Lasha Pro MD Attending Provider Unavaildavid Tavares PRESSURE WELDER-CSavi Attending Provider Lasha Pro MD Referring Provider Unavaildavid Pro MD, Dr. Colby Attending Provider Jim Valentin Attending Provider [phone] Morteza VASQUEZ Efcachorroongbe Attending Unavailabl e Alejandra, Carl Primary Care Unavailable Oleghe OLS Efewongbe Referring Unavailabl e Oleghe OLS, Efewongbe Attending Unavailabl e Alejandra, [place] Primary Care Unavailable Oleghe OLS Efewongbe Attending Unavailabl e Alejandra, [place] Primary Care Unavailable Oleghe OLS, Efewongbe Referring Unavailabl e Oleghe OLS, Efewongbe Attending Unavailabl e Alejandra, [place] Primary Care Unavailable Oleghe OLS, Efewongbe Attending Unavailabl e Alejandra, [place] Primary Care Unavailable Oleghe OLS, Efewongbe Attending Unavailabl e Alejandra, [place] [facility] Un[facility] Oleghe OLS, Efewongbe Attending Unavailabl e Oleghe OLS, Efewongbe Attending Unavailabl e Alejandra, [place] Primary Care Unavailable Oleghe OLS, Efewongbe Attending Unavailabl e Alejandra, Carl Primary Care Unavailable Oleghe OLS, Efewongbe Attending Unavailabl e Alejandra, Carl Primary Care Unavailable Oleghe OLS, Efewongbe Attending Unavailabl e Alejandra, Carl Primary Care Unavailable Oleghe OLS, Efewongbe Attending Unavailabl e Alejandra, Carl Primary Care Unavailable Alejandra, Carl Primary Care Unavailable Oleghe OLS, Efewongbe Attending Unavailabl e Alejandra, [place] Primary Care Unavailable Oleghe OLS, Efewongbe Attending [...] Unavailabl e Alejandra, Carl Primary Care Unavailable [place] PRESSURE WELDER, Savi Attending Unavailable Alejandra, Carl Primary Care Unavailable Oleghe OLS, Efewongbe Attending Unavailabl e Alejandra, Carl Primary Care Unavailable Sujata Mejia Attending Unavailable Alejandra, Carl Primary Care Unavailable Alejandra, Carl Primary Care Unavailable Oleghe, Efewongbe Attending Unavailable [place] PRESSURE WELDER, Savi Attending Unavailable Alejandra, Carl Primary Care Unavailable [place] PRESSURE WELDER, Savi Attending Unavailable Alejandra, Carl Primary Care Unavailable Alejandra, Carl Primary Care Unavailable Jim Valentin Attending Unavailable Oleghe, Efewongbe Attending Unavailable Alejandra, Carl Primary Care Unavailable [place] PRESSURE WELDER, Savi Attending Unavailable Alejandra, Carl Primary Care Unavailable Oleghe, Efewongbe Attending Unavailable Alejandra, Carl Primary Care Unavailable Jim Valentin Attending Unavailable Alejandra, Carl Primary Care Unavailable Ronen Espinoza Attending Unavailable Alejandra, Carl Referring Unavailable Alejandra, Carl Primary Care Unavailable Hector Anderson Attending Unavailable Alejandra, Carl Primary Care Unavailable Oleghe, Efewongbe Attending Unavailable Alejandra, Carl Primary Care Unavailable [place] PRESSURE WELDER, Savi Attending Unavailable Alejandra, Carl Primary Care Unavailable [place] PRESSURE WELDER, Savi Attending Unavailable Alejandra, Carl Primary Care Unavailable [place] PRESSURE WELDER, Savi Attending Unavailable Alejandra, Carl Primary Care Unavailable [place] PRESSURE WELDER, Savi Attending Unavailable Alejandra, Carl Primary Care Unavailable Oleghe OLS, Efewongbe Attending Unavailabl e Alejandra, Carl Primary Care Unavailable Oleghe OLS, Efewongbe Attending Unavailabl e Alejandra, Carl Primary Care Unavailable Oleghe OLS, Efewongbe Attending Unavailabl e Alejandra, Carl Primary Care Unavailable Oleghe OLS, Efewongbe Referring Unavailabl e Oleghe OLS, Efewongbe Attending Unavailabl e Alejandra, [facility] Unavailable Oleghe OLS, Efewongbe Attending Unavailabl e Alejandra, [facility] Unavailable Oleghe OLS, Efewongbe Attending Unavailabl e Alejandra, [facility] Unavailable Oleghe OLS, Efewongbe Referring Unavailabl e Oleghe OLS, Efewongbe Attending Unavailabl e Alejandra, [facility] Unavailable Oleghe OLS, Efewongbe Attending Unavailabl e Alejandra, [facility] Unavailable Alejandra, [facility] Unavailable Oleghe OLS, Efewongbe Attending Unavailabl e Allergies Allergy Classification Reported Allergen(s) Allergy Type Date of Onset Reaction(s) Facility NITROFURANTOIN, MACROCRYSTALS / Nitrofurantoin, Monohydrate (4 sources) NITROFURANTOIN, MACROCRYSTALS / Nitrofurantoin, Monohydrate; Translations: [nitrofurantoin] Drug Allergy 3 GI Upset, Upset stomach (finding) [facility] Work Phone: (20 sources) NITROFURANTOIN, MACROCRYSTALS / Nitrofurantoin, Monohydrate; Translations: [nitrofurantoin] Drug Allergy 3 GI Upset, Upset stomach (finding) [facility] Work Phone: (3 sources) Ciprofloxacin Drug Allergy 4 nausea and "felt loopy" [facility] (3 sources) Nitrofurantoin Drug Allergy 4 Vomiting [facility] Comment on above: GI upset, nausea, vo miting and diarrhea. (1 source) Ciprofloxacin Drug Allergy 5 [facility] Repository (1 source) Nitrofurantoin Drug Allergy 5 [facility] Repository Medications Current Medications Medication Drug Class(es) [...] oral tablet See Instructions, 1 tab(s) Oral Mon-Wed Hold Sun, 0 Refill(s) Start Date: 03/26/23 [...] Comment on above: Take 1 capsule by [facility] twice daily with meals for 7 days. omeprazole 20 mg delayed release oral capsule (20 sources) Proton Pump Inhibitor Start: 07-15-2020 End: 02-08-2023 take 1 capsule by mouth once daily Omeprazole 20 mg Capsule,Delayed Release(Dr/Ec) Active 20 mg PO DAILY May 09, 2021 12:00am Comment on above: Take 1 capsule by [facility] once daily. perflutren lipid microspheres 1.3 mL [...] Comment on above: Take 1 tablet by [facility] twice daily. predniSONE 10 mg oral [...] with food. Take 2 tablets by mo [facility] once daily for 5 days. Take 4 [...] (For chemotherapy induced nausea and vomiting). sennosides, care home 8.6 mg oral tablet (1 source) Start: [...] tablet by xuan [facility] twice daily for 90 days. for arthritis pain. Do not start before September 16, 2021. Take 1 tablet by xuan th twice daily for 90 days. for arthritis pain. Take 1 tablet by xuan th twice daily for 90 days. for arthritis pain. Do not start before December 09, 2022. Take 1 tablet by xuan th two times a day for 90 days. for arthritis pain. Take 1 tablet by xuan th two times a day for 90 days. for arthritis pain. Do not start before July 11, 2023. Take 1 tablet by xuan th two times a day for 30 days. [...] on above: Take 1,000 mcg by mo [facility] once daily. Vitamin D3 (1 source) Start: [...] Start: 05-31-2023 take 1 tablet by xuan th at breakfast Aspirin 81 mg Tablet,Delayed Release [...] 6 hours as needed. polyethylene glycol 3350 80143 mg powder for oral solution (9 sources) [...] tissue disease (2 sources) Rhabdomyolysis; Translations: [Rhabdomyolysis] 04-16-2024 Episodic Other female genital disorders (3 sources) [...] for resuscitation; Translations: [Do not resuscitate] Episodic Residual codes; unclassified (1 source) Insomnia, unspecified; Translations: [Insomnia, unspecified] Onset: 5 Episodic Respiratory failure; insufficiency; arrest (adult) (20 [...] findings in serum] Onset: 04-02-2023 04-02-2023 Episodic Other aftercare (3 sources) Drug therapy finding; Translations: [Other prison (current) drug therapy] Onset: 08-28-2016 05-10-2018 Episodic Other aftercare (20 sources) Patient encounter status; Translations: [Other prison (current) drug therapy] Onset: 02-26-2017 09-20-2018 Episodic Other aftercare (1 source) Other prison (current) drug therapy; Translations: [Medication management] Onset: [...] 12-04-2024 HIP, UNI W/ Pelvis 2-3 Views [facility] [address] [place] [address] [id number] HIP, UNI W/ Pelvis 2-3 Views MR#: [id number] Acct: [id number] Name: STEFANO WASHINGTON Rep #: [id number] : 1940 F 84 From: Cheryl Davies PCP: Dr. Carl Encarnacion MD Status: DEP AMB Study: HIP, UNI W/ Pelvis 2-3 Views Date of Exam: Exam# [id number] Ordering Dr: Ronen Espinoza DO PROCEDURE: HIP, [...] Mild arthritic changes are seen. Reading Location: [id number] CC: Dr. Carl Encarnacion MD; Dr. Ronen Espinoza DO Sanitation Inspector: Signed Normal [facility] Orthopedic Visit Reporton Orthopedic Visit Report [facility] [address] [place] [address] [address] [place] [address] OFFICE VISIT Date of Service: 12/04/24 MR#: [id number] Acct: [id number] Name: STEFANO WASHINGTON Rep #: [id number] : 1940 Provider: Dr. Ronen winston DO Age/Sex: 84/F Location: [facility] Status: Signed Intake Vital Signs 03/14/24 14:51 [...] stenosis UTI (urinary tract infection) Non-ST elevation [place] (NSTEMI) Hypertension Chronic pain Rheumatoid arthritis Former smoker High cholesterol GERD (gastroesophageal reflux disease) Hypothyroidism Hypertension Social History household members: children Smoking Status: Former smoker alcohol intake: never substance use type: does not use HPI RIGHT HIP Details: This documentation accurately reflects the service provided and the decisions made by me, Dr. Ronen Espinoza, DO 12/04/24 0826. Part of today???s visit was documented by [...] help with the flare. Patient is at [facility], they will fill that prescription for the Medrol Dosepak as directed (more content not included)... Normal [facility] Vitamin B12 ser/plasOrdered By: Lasha Pro on 11-02-2024 Cobalamin (Vitamin B12) [Mass/Vol] 412 pg/mL 180-914 [facility] Calculated very low density lipoprotein (VLDL) cholesterol measurementOrdered By: Lasha Pro on 10-30-2024 VLDL Cholesterol 23 mg/dL 5-40 [facility] LDL calc ser/plasOrdered By: Lasha Pro on 10-30-2024 LDL Cholesterol, Calculated 47 mg/dL [facility] Comment on above: Qbhaehvbbw=845-969 m g/dL & Higher Zqyj=413 mg/dL or greater Screening total cholesterol/ high density lipoprotein (HDL) cholesterol ratioOrdered By: Lasha Pro on 10-30-2024 Cholesterol.total/Chol esterol in HDL [Mass ratio] 2.22 {ratio} [facility] Serum or plasma cholesterol in HDL measurement (mass/volume)Ordered By: Lasha Pro on 10-30-2024 Cholesterol in HDL [Mass/Vol] 58 mg/dL >40 [facility] Comment on above: National Cholesterol Education Program (NCEP) guidelines:<40 mg/dL: Low HDL-cholesterol (major risk factor for CHD)>= 60 mg/dL: High HDL-cholesterol (negative risk factor for CHD)HDL-cholesterol is affected by a number of factors, e.g. smoking, exercise, hormones, sex and age. Serum or plasma cholesterol measurement (mass/volume)Ordered By: Lasha Pro on 10-30-2024 Cholesterol [Mass/Vol] 129 mg/dL <201 [facility] Comment on above: Cholesterol level, D esirable <200 mg/dLBorderline high cholesterol 200-239 mg/dLHigh cholesterol >=240 mg/dLRecommendations of the NCEP Adult Treatment Panel for the following risk-cutoff thresholds for the [place] population. TSH DL <= 0.005 mIU/L QnOrde red By: Lasha Pro on 10-30-2024 Thyroid Stimulating Hormone (TSH) 0.870 uIU/mL 0.300-4.20 0 [facility] Triglycerides measurementOrd ered By: Lasha Pro on 10-30-2024 Triglyceride [Mass/Vol] 117 mg/dL <199 [facility] Comment on above: The drugs N-Acetylcy steine and Metamizole may falsely depress this assay. Normal range: <150 mg/dLBorderline High: 150-199 mg/dLHigh: 200-499 mg/dLVery High: >500 mg/dL Absolute neutrophil countOrd ered By: Lasha Pro on 10-16-2024 Neutrophils (Bld) [#/Vol] 1.4 10*3/uL Low 2.0-7.7 [facility] Anion gap in Serum or Plasma Ordered By: Lasha Pro on 10-16-2024 Anion gap [Moles/Vol] 13 mmol/L 5-15 [facility] BUN/creatinine ratioOrdered By: Lasha Pro on 03-10-2025 Urea nitrogen/Creatinine [Mass ratio] 22.3 mg/mg High 10-20 [facility] Basophil percentageOrdered B y: Lasha Pro on 10-16-2024 Basophils/100 WBC (Bld) 1.7 % High 0-1 [facility] Bilirubin directOrdered By: Lasha Pro on 10-16-2024 Bilirubin.direct [Mass/Vol] 0.20 mg/dL 0.00-0.30 [facility] Bilirubin, totalOrdered By: Lasha Pro on 10-16-2024 Bilirubin [Mass/Vol] 0.34 mg/dL 0.00-1.30 [facility] Carbon dioxide, total [Moles /volume] in Central venous bloodOrdered By: Lasha Pro on 10-16-2024 CO2 [Moles/Vol] 22.7 mmol/L 21.0-32.0 [facility] Chloride assayOrdered By: Brittany Pro on 10-16-2024 Chloride [Moles/Vol] 107 mmol/L 98-108 [facility] Eosinophil percentageOrdered By: Lasha Pro on 10-16-2024 Eosinophils/100 WBC (Bld) 5.0 % 0-5 [facility] Erythrocyte distribution wid th (RBC) [Ratio]Ordered By: Lasha Pro on 10-16-2024 Erythrocyte distribution width (RBC) [Entitic vol] 52.4 fL High 35.1-43.9 [facility] Erythrocyte distribution wid th ratioOrdered By: Lasha Pro on 10-16-2024 Erythrocyte distribution width (RBC) [Ratio] 13.8 % 11.6-14.6 [facility] GFR/1.73 sq M.predicted gianna g non-blacks MDRD (S/P/Bld) [Vol rate/Area]Ordered By: Lasha Pro on 10-16-2024 Estimated GFR (MDRD) Non-Af Amer 84 >60 [facility] Comment on above: mL/min/1.73m2 CKD-EP I Creatinine Equation (2020) Hematocrit Auto (Bld) [Volum e fraction]Ordered By: Lasha Pro on 10-16-2024 Hematocrit (Bld) [Volume fraction] 34.4 % Low 37-47 [facility] Hemoglobin measurementOrdere d By: Lasha Pro on 10-16-2024 Hemoglobin (Bld) [Mass/Vol] 10.8 g/dL Low 12.0-15.0 [facility] Immature granulocytes/100 WB C Auto (Bld)Ordered By: Lasha Pro on 10-16-2024 Immature granulocytes/100 WBC (Bld) 0.300 % 0.0-0.9 [facility] Comment on above: IG% - Immature Granu locytes (promyelocytes, myelocytes and metamyelocytes) > 1% indicates that a LEFT SHIFT is Present. Laboratory - Chemistry and C hemistry - challengeOrdered By: Lasha Pro on 10-16-2024 AST [Catalytic activity/Vol] 17 U/L <32 [facility] Lymphocytes Auto (Unsp spec) [#/Vol]Ordered By: Lasha Pro on 10-16-2024 Lymphocytes (Bld) [#/Vol] 1.11 10*3/uL 0.83-4.51 [facility] Lymphocytes/100 WBC Auto (Un sp spec)Ordered By: Lasha Pro on 10-16-2024 Lymphocytes/100 WBC (Bld) 36.6 % 19-41 [facility] MCV (mean corpuscular volume ) determinationOrdered By: Lasha Pro on 10-16-2024 MCV (RBC) [Entitic vol] 102.7 fL High 81-99 [facility] Mean corpuscular hemoglobin (MCH) determinationOrdered By: Lasha Pro on 10-16-2024 MCH (RBC) [Entitic mass] 32.2 pg High 27.0-32.0 [facility] Mean corpuscular hemoglobin concentration (MCHC) determinationOrdered By: Lasha Pro on 10-16-2024 MCHC (RBC) [Mass/Vol] 31.4 g/dL Low 32-36 [facility] Mean platelet volume determi nationOrdered By: Lasha Pro on 10-16-2024 Platelet mean volume (Bld) [Entitic vol] 10.3 fL 6.2-12.0 [facility] Monocyte percentageOrdered B y: Lasha Pro on 10-16-2024 Monocytes/100 WBC (Bld) 11.9 % High 0-10 [facility] Neutrophil percentageOrdered By: Lasha Pro on 10-16-2024 Neutrophils/100 WBC (Bld) 44.5 % Low 47-70 [facility] Nucleated red blood cell per centageOrdered By: Lasha Pro on 10-16-2024 Nucleated RBC/100 WBC (Bld) [Ratio] 0 % 0-5 [facility] Platelet countOrdered By: Brittany Pro on 10-16-2024 Platelets (Bld) [#/Vol] 162 10*3/uL 150-450 [facility] Potassium (Unsp spec) [Mass/ Vol]Ordered By: Lasha Pro on 10-16-2024 Potassium [Moles/Vol] 3.9 mmol/L 3.3-5.1 [facility] RBC Auto (Bld) [#/Vol]Ordere d By: Lasha Pro on 10-16-2024 RBC (Bld) [#/Vol] 3.35 10*6/uL Low 4.2-5.4 [facility] Serum creatinine measurement (mass/volume)Ordered By: Lasha Pro on 10-16-2024 Creatinine [Mass/Vol] 0.70 mg/dL 0.70-1.20 [facility] Serum globulin measurementOr dered By: Lasha Pro on 10-16-2024 Globulin (S) [Mass/Vol] 2.9 g/dL 2.2-4.2 [facility] Serum glucose measurement (m ass/volume)Ordered By: Lasha Pro on 10-16-2024 Glucose [Mass/Vol] 83 mg/dL 70-99 [facility] Serum or plasma alanine valdez otransferase (ALT) measurementOrdered By: Lasha Pro on 10-16-2024 ALT [Catalytic activity/Vol] 6 U/L <35 [facility] Serum or plasma albumin nina urement (mass/volume)Ordered By: Lasha Pro on 10-16-2024 Albumin [Mass/Vol] 3.6 g/dL 3.4-4.8 [facility] Serum or plasma albumin/glob ulin mass ratioOrdered By: Lasha Pro on 10-16-2024 Albumin/Globulin [Mass ratio] 1.2 {ratio} 0.9-2.4 [facility] Serum or plasma alkaline adelaide sphatase measurementOrdered By: Lasha Pro on 10-16-2024 ALP [Catalytic activity/Vol] 64 U/L 35-104 [facility] Serum or plasma calcium nina urement (mass/volume)Ordered By: Lasha Pro on 10-16-2024 Calcium [Mass/Vol] 8.9 mg/dL 7.6-11.0 [facility] Serum or plasma urea nitroge n measurement (mass/volume)Ordered By: Lasha Pro on 10-16-2024 Urea nitrogen [Mass/Vol] 16 mg/dL 4-19 [facility] Serum phosphorus measurement Ordered By: Lasha Pro on 10-16-2024 Phosphorus Level 3.2 mg/dL 2.7-4.5 [facility] Sodium levelOrdered By: Tenzin lesley Morteza on 10-16-2024 Sodium [Moles/Vol] 142 mmol/L 133-145 [facility] Total proteinOrdered By: Maikel alexsanderphilip Pro on 10-16-2024 Protein [Mass/Vol] 6.5 g/dL 5.9-8.4 [facility] White blood cell (WBC) count Ordered By: Lasha Pro on 10-16-2024 WBC (Bld) [#/Vol] 3.0 10*3/uL Low 4.4-11.0 [facility] Bilirubin Test strip Ql (U)O rdered By: Savi Tavares on 09-27-2024 Bilirubin Ql (U) Negative Negative [facility] Glucose Ql (U)Ordered By: Angel Tavares on 09-27-2024 Urine Glucose (UA) Normal mg/dl Normal [facility] Ketones Test strip Ql (U)Ord ered By: Savi Tavares on 09-27-2024 Ketones Ql (U) Negative Negative [facility] Nitrite Test strip Ql (U)Ord ered By: Savi Tavares on 09-27-2024 Nitrite Ql (U) Negative Negative [facility] Protein Test strip Ql (U)Ord ered By: Savi Tavares on 09-27-2024 Protein Ql (U) 30 mg/dl High Negative [facility] Urine blood detectionOrdered By: Savi Tavares on 09-27-2024 Urine Occult Blood 25 /ul High Negative [facility] Urine clarityOrdered By: Raheem Tavares on 09-27-2024 Clarity (U) Sl. Cloudy Clear [facility] Urine color determinationOrd ered By: Savi Tavares on 09-27-2024 Color (U) Yellow Yellow [facility] Urine cultureOrdered By: Maikel Pro on 09-27-2024 Bacteria identified Cx Nom (U) Culture exhibits no growth. [facility] Urine leukocyte esterase det ection by dipstickOrdered By: Savi Tavares on 09-27-2024 Leukocyte esterase Test strip Ql (U) 500 /ul High Negative [facility] Urine pHOrdered By: Savi Tavares on 09-27-2024 pH (U) 6.0 [pH] 5.0 - 8.0 [facility] Urine specific gravity measu rementOrdered By: Savi Tavares on 09-27-2024 Specific gravity (U) [Rel density] 1.010 1.002-1.03 0 [facility] Urobilinogen Ql (U)Ordered B y: Savi Tavares on 09-27-2024 Urine Urobilinogen Normal mg/dl Normal [facility] Bilirubin Test strip Ql (U)O rdered By: Lasha Pro on 09-25-2024 Bilirubin Ql (U) Negative Negative [facility] Glucose Ql (U)Ordered By: Brittany Pro on 09-25-2024 Urine Glucose (UA) Normal mg/dl Normal [facility] Ketones Test strip Ql (U)Ord ered By: Lasha Pro on 09-25-2024 Ketones Ql (U) Negative Negative [facility] Nitrite Test strip Ql (U)Ord ered By: Lasha Pro on 09-25-2024 Nitrite Ql (U) Negative Negative [facility] Protein Test strip Ql (U)Ord ered By: Lasha Pro on 09-25-2024 Protein Ql (U) 15 mg/dl High Negative [facility] Urine blood detectionOrdered By: Lasha Pro on 09-25-2024 Urine Occult Blood 25 /ul High Negative [facility] Urine clarityOrdered By: Maikel Pro on 09-25-2024 Clarity (U) Sl. Cloudy Clear [facility] Urine color determinationOrd ered By: Lasha Pro on 09-25-2024 Color (U) Yellow Yellow [facility] Urine cultureOrdered By: Maikel Pro on 09-25-2024 Bacteria identified Cx Nom (U) Positive Abnormal [facility] Urine leukocyte esterase det ection by dipstickOrdered By: Lasha Pro on 09-25-2024 Leukocyte esterase Test strip Ql (U) 500 /ul High Negative [facility] Urine pHOrdered By: Jennie Pro on 09-25-2024 pH (U) 6.5 [pH] 5.0 - 8.0 [facility] Urine specific gravity measu rementOrdered By: Lasha Pro on 09-25-2024 Specific gravity (U) [Rel density] 1.005 1.002-1.03 0 [facility] Urobilinogen Ql (U)Ordered B y: Lasha Pro on 09-25-2024 Urine Urobilinogen Normal mg/dl Normal [facility] TSH QnOrdered By: Lasha Pro on 09-18-2024 Thyroid Stimulating Hormone (TSH) 0.307 uIU/mL Low 0.358-3.74 0 [facility] Bilirubin Test strip Ql (U)O rdered By: Lasha Pro on 09-14-2024 Bilirubin Ql (U) Negative Negative [facility] Glucose Ql (U)Ordered By: Brittany Por on 09-14-2024 Urine Glucose (UA) Normal mg/dl Normal [facility] Ketones Test strip Ql (U)Ord ered By: Lasha Pro on 09-14-2024 Ketones Ql (U) Negative Negative [facility] Nitrite Test strip Ql (U)Ord ered By: Lasha Pro on 09-14-2024 Nitrite Ql (U) Positive High Negative [facility] Protein Test strip Ql (U)Ord ered By: Lasha Pro on 09-14-2024 Protein Ql (U) 15 mg/dl High Negative [facility] TSH QnOrdered By: Lasha Pro on 09-14-2024 Thyroid Stimulating Hormone (TSH) 0.734 uIU/mL 0.358-3.74 0 [facility] [place] Urine blood detectionOrdered By: Lasha Pro on 09-14-2024 Urine Occult Blood 25 /ul High Negative [facility] Urine clarityOrdered By: Maikel Pro on 09-14-2024 Clarity (U) Sl. Cloudy Clear [facility] [place] Urine color determinationOrd ered By: Lasha Pro on 09-14-2024 Color (U) Yellow Yellow [facility] [place] Urine cultureOrdered By: Maikel Pro on 09-14-2024 Bacteria identified Cx Nom (U) ESBL Escherichia coli Abnormal [facility] [place] Urine leukocyte esterase det ection by dipstickOrdered By: Lasha Pro on 09-14-2024 Leukocyte esterase Test strip Ql (U) 500 /ul High Negative [facility] [place] Urine pHOrdered By: Jennie Pro on 09-14-2024 pH (U) 6.5 [pH] 5.0 - 8.0 [facility] [place] Urine specific gravity measu rementOrdered By: Lasha Pro on 09-14-2024 Specific gravity (U) [Rel density] 1.010 1.002-1.03 0 [facility] [place] [facility] Urobilinogen Ql (U)Ordered B y: Lasha Pro on 09-14-2024 Urine Urobilinogen Normal mg/dl Normal [facility] Bilirubin Test strip Ql (U)O rdered By: Lasha Pro on 09-03-2024 Bilirubin Ql (U) Negative Negative [facility] [place] [facility] Epithelial cells.squamous LM Ql (Urine sed)Ordered By: Lasha Pro on 09-03-2024 Epithelial cells.squamous LM.HPF (Urine sed) [#/Area] 5 /[HPF] 5-10 [facility] [place] [facility] Glucose Ql (U)Ordered By: Brittany Pro on 09-03-2024 Urine Glucose (UA) Normal mg/dl Normal [facility] Ketones Test strip Ql (U)Ord ered By: Lasha Pro on 09-03-2024 Ketones Ql (U) Negative Negative [facility] [place] [facility] Microscopic analysis of urin e for red blood cells (RBC)Ordered By: Lasha Pro on 09-03-2024 Urine RBC 0-5 SEEN /hpf 0-5 [facility] [place] [facility] Mucus LM Ql (Urine sed)Order ed By: Lasha Pro on 09-03-2024 Mucus Ql (Urine sed) 0 SEEN /hpf [facility] Nitrite Test strip Ql (U)Ord ered By: Lasha Pro on 09-03-2024 Nitrite Ql (U) Positive High Negative [facility] [place] [facility] Protein Test strip Ql (U)Ord ered By: Lasha Pro on 09-03-2024 Protein Ql (U) 30 mg/dl High Negative [facility] [place] Transitional cells LM Ql (Ur ine sed)Ordered By: Lasha Pro on 09-03-2024 Urine Transitional Epithelial Cells 0-5 SEEN /hpf 0-5 [facility] [place] Urine blood detectionOrdered By: Lasha Pro on 09-03-2024 Urine Occult Blood 25 /ul High Negative [facility] Urine clarityOrdered By: Maikel Pro on 09-03-2024 Clarity (U) Sl. Cloudy Clear [facility] [place] Urine color determinationOrd ered By: Lasha Pro on 09-03-2024 Color (U) Yellow Yellow [facility] [place] Urine cultureOrdered By: Maikel Pro on 09-03-2024 Bacteria identified Cx Nom (U) Mixed Gram Pos & Gram Neg Org Abnormal [facility] [place] Urine leukocyte esterase det ection by dipstickOrdered By: Lasha Pro on 09-03-2024 Leukocyte esterase Test strip Ql (U) 500 /ul High Negative [facility] [place] Urine pHOrdered By: Jennie Pro on 09-03-2024 pH (U) 6.0 [pH] 5.0 - 8.0 [facility] [place] Urine sediment bacteria coun t by microscopy (number/high power field)Ordered By: Lasha Pro on 09-03-2024 Bacteria LM.HPF (Urine sed) [#/Area] 0 /[HPF] None Seen [facility] [place] Urine specific gravity measu rementOrdered By: Lasha Pro on 09-03-2024 Specific gravity (U) [Rel density] 1.015 1.002-1.03 0 [facility] [place] [facility] Urobilinogen Ql (U)Ordered B y: Lasha Pro on 09-03-2024 Urine Urobilinogen Normal mg/dl Normal [facility] White blood cell countOrdere d By: Lasha Pro on 09-03-2024 Urine WBC 50-100 SEEN /hpf 0-5 [facility] [place] [facility] Yeast LM.HPF (Urine sed) [#/ Area]Ordered By: Lasha Pro on 09-03-2024 Urine Yeast 2+ /hpf None Seen [facility] [place] High density lipoprotein (HD L) measurementOrdered By: Lasha Pro on 08-07-2024 Cholesterol in HDL [Mass/Vol] 62 mg/dL >40 [facility] [place] Comment on above: The drugs N-Acetylcy steine and Metamizole may falsely depress this assay. Reference Range HDL <40 mg/dL Low HDL Cholesterol HDL >or= 60 mg/dL High HDL Cholesterol Low density lipoprotein (LDL ) cholesterol measurementOrdered By: Lasha Pro on 08-07-2024 Cholesterol in LDL [Mass/Vol] 45 mg/dL 0-130 [facility] [place] [facility] Serum or plasma cholesterol measurement (mass/volume)Ordered By: Lasha Pro on 08-07-2024 Cholesterol [Mass/Vol] 133 mg/dL <200 [facility] Comment on above: <200 mg/dL Desirable 200-240 mg/dL Borderline >240 mg/dL High Risk TSH QnOrdered By: Lasha Pro on 08-07-2024 Thyroid Stimulating Hormone (TSH) 0.257 uIU/mL Low 0.358-3.74 0 [facility] [place] [facility] Triglycerides measurementOrd ered By: Lasha Pro on 08-07-2024 Triglyceride [Mass/Vol] 130 mg/dL <199 [facility] [place] [facility] Comment on above: The drugs N-Acetylcy steine and Metamizole may falsely depress this assay.Serum Triglycerides Reference Interval Normal <150 mg/dL Borderline high 150 - 199 mg/dL High 200 - 499 mg/dL Very High > or = 500 mg/dL Very low density lipoprotein (VLDL) cholesterol measurementOrdered By: Lasha Pro on 08-07-2024 VLDL Cholesterol 26 mg/dL 5-40 [facility] [place] [facility] .Auto Diffon 02-14-2024 Basophil, Absolute 0.1 10 3/mcL Normal 0.0-0.3 [facility] ([place]) Comment on above: Performed By: #### M ORPH, CBC, DIFF #### [address] [address] Basophils/100 WBC (Bld) 2.1 % Normal 0.0-2.5 [facility] ([place]) Comment on above: Performed By: #### M ORPH, CBC, DIFF #### [address] [address] Eosinophil, Absolute 0.2 10 3/mcL Normal 0.0-0.7 [facility] ([place]) Comment on above: Performed By: #### M ORPH, CBC, DIFF #### [address] [address] Eosinophils/100 WBC (Bld) 5.2 % Normal 0.0-6.0 [facility] ([place]) Comment on above: Performed By: #### M ORPH, CBC, DIFF #### [address] [address] Lymphocyte, Absolute 1.2 10 3/mcL Normal 0.9-4.3 [facility] ([place]) Comment on above: Performed By: #### M ORPH, CBC, DIFF #### [address] [address] Lymphocytes/100 WBC (Bld) 28.4 % Normal 20.0-40.0 [facility] ([place]) Comment on above: Performed By: #### M ORPH, CBC, DIFF #### [address] [address] Monocyte, Absolute 0.4 10 3/mcL Normal 0.1-1.4 [facility] ([place]) Comment on above: Performed By: #### M ORPH, CBC, DIFF #### [address] [address] Monocytes/100 WBC (Bld) 10.7 % Normal 2.0-13.0 [facility] ([place]) Comment on above: Performed By: #### M ORPH, CBC, DIFF #### [address] [address] Neutrophils/100 WBC (Bld) 53.6 % Normal 50.0-75.0 [facility] ([place]) Comment on above: Performed By: #### M ORPH, CBC, DIFF #### [address] [address] .GFRon 02-14-2024 GFR >60 Normal [facility] ([place]) Comment on above: Result Comment: GFR Population [...] BMP, ADIFF, ANEU, GFR #### [place] [address] [address] GFR Non- >60 Normal [facility] ([place]) Comment on above: Result Comment: GFR Population [...] BMP, ADIFF, ANEU, GFR #### [place] Maria [address] [address] .NEUABSon 02-14-2024 Neutrophil, Absolute 2.2 10 3/mcL Low 2.3-8.1 [facility] ([place]) Comment on above: Performed By: #### M ORPH, CBC, DIFF #### [address] [address] BMPon 02-14-2024 BUN/Creatinine Ratio 17.6 ratio Normal 10.0-22.0 [facility] ([place]) Comment on above: Performed By: #### M ORPH, CBC, DIFF #### [address] [address] Calcium [Mass/Vol] 8.4 mg/dL Low 8.7-10.4 [facility] ([place]) Comment on above: Performed By: #### M ORPH, CBC, DIFF #### [address] [address] Chloride [Moles/Vol] 108 mmol/L Normal 98-110 [facility] ([place]) Comment on above: Performed By: #### M ORPH, CBC, DIFF #### [address] [address] CO2 [Moles/Vol] 30 mmol/L Normal 22-32 [facility] ([place]) Comment on above: Performed By: #### M ORPH, CBC, DIFF #### [address] [address] Creatinine [Mass/Vol] 0.51 mg/dL Normal 0.50-1.20 [facility] ([place]) Comment on above: Performed By: #### M ORPH, CBC, DIFF #### [address] [address] Electrolyte Balance 4.0 mEq/L Normal 4.0-15.0 [facility] ([place]) Comment on above: Performed By: #### M ORPH, CBC, DIFF #### [address] [address] Glucose [Mass/Vol] 100 mg/dL Normal 82-115 [facility] ([place]) Comment on above: Performed By: #### M ORPH, CBC, DIFF #### [address] [address] Potassium [Moles/Vol] 3.7 mmol/L Normal 3.5-5.0 [facility] ([place]) Comment on above: Performed By: #### M ORPH, CBC, DIFF #### [address] [address] Sodium [Moles/Vol] 142 mmol/L Normal 136-145 [facility] ([place]) Comment on above: Performed By: #### M ORPH, CBC, DIFF #### [address] [address] Urea nitrogen [Mass/Vol] 9.0 mg/dL Normal 8.0-22.0 [facility] ([place]) Comment on above: Performed By: #### M ORPH, CBC, DIFF #### [address] [address] CBCon 02-14-2024 Erythrocyte distribution width (RBC) [Ratio] 17.6 % High 11.5-15.5 [facility] ([place]) Comment on above: Performed By: #### M ORPH, CBC, DIFF #### [address] [address] Hematocrit (Bld) [Volume fraction] 29.4 % Low 34.0-46.0 [facility] ([place]) Comment on above: Performed By: #### M ORPH, CBC, DIFF #### [address] [address] Hgb 9.6 G/dL Low 12.0-16.0 [facility] ([place]) Comment on above: Performed By: #### M ORPH, CBC, DIFF #### [address] [address] MCH (RBC) [Entitic mass] 30.7 pg Normal 27.0-33.0 [facility] ([place]) Comment on above: Performed By: #### M ORPH, CBC, DIFF #### [place] [address] MCHC 32.7 G/dL Normal 32.0-36.0 [facility] ([place]) Comment on above: Performed By: #### M ORPH, CBC, DIFF #### [place] [id number] MCV (RBC) [Entitic vol] 94.0 fL Normal 80.0-99.0 [facility] ([place]) Comment on above: Performed By: #### M ORPH, CBC, DIFF #### [address] [address] Platelet 209 10 3/mcL Normal 150-450 [facility] ([place]) Comment on above: Performed By: #### M ORPH, CBC, DIFF #### [place] [id number] Platelet mean volume (Bld) [Entitic vol] 7.0 fL Normal 6.6-10.5 [facility] ([place]) Comment on above: Performed By: #### M ORPH, CBC, DIFF #### [address] [address] RBC 3.13 10 6/mcL Low 4.10-5.30 [facility] ([place]) Comment on above: Performed By: #### M ORPH, CBC, DIFF #### [place] [id number] WBC 4.2 10 3/mcL Low 4.5-10.8 [facility] ([place]) Comment on above: Performed By: #### M ORPH, CBC, DIFF #### [place] [id number] [place] [address] LABORATORYOrdered By: SYSTEM SYSTEM on 02-14-2024 Basophils (Bld) [#/Vol] 0.1 103/mcL Normal 0.0 - 0.3 10^3/mcL AH Workflow SS Basophils/100 WBC (Bld) 2.1 % [...] 2.2 103/mcL Low 2.3 - 8.1 10^3/mcL Workflow SS Neutrophils/100 WBC (Bld) 53.6 % Normal 50.0 - 75.0 % Workflow SS Platelet mean volume (Bld) [Entitic [...] 02-14-2024 Magnesium [Mass/Vol] 1.9 mg/dL Normal 1.6-2.4 [facility] ([place]) Comment on above: Performed By: #### M ORPH, CBC, DIFF #### [address] [address] .Auto Diffon 02-12-2024 Basophil, Absolute 0.1 10 3/mcL Normal 0.0-0.3 [facility] ([place]) Comment on above: Performed By: #### M ORPH, CBC, DIFF #### [address] [address] Basophils/100 WBC (Bld) 1.9 % Normal 0.0-2.5 [facility] ([place]) Comment on above: Performed By: #### M ORPH, CBC, DIFF #### [address] [address] Eosinophil, Absolute 0.1 10 3/mcL Normal 0.0-0.7 [facility] ([place]) Comment on above: Performed By: #### M ORPH, CBC, DIFF #### [address] [address] Eosinophils/100 WBC (Bld) 3.5 % Normal 0.0-6.0 [facility] ([place]) Comment on above: Performed By: #### M ORPH, CBC, DIFF #### [address] [address] Lymphocyte, Absolute 1.1 10 3/mcL Normal 0.9-4.3 [facility] ([place]) Comment on above: Performed By: #### M ORPH, CBC, DIFF #### [address] [address] Lymphocytes/100 WBC (Bld) 26.8 % Normal 20.0-40.0 [facility] ([place]) Comment on above: Performed By: #### M ORPH, CBC, DIFF #### [address] [address] Monocyte, Absolute 0.4 10 3/mcL Normal 0.1-1.4 [facility] ([place] Comment on above: Performed By: #### M ORPH, CBC, DIFF #### [address] [address] Monocytes/100 WBC (Bld) 10.7 % Normal 2.0-13.0 [facility] ([place] Comment on above: Performed By: #### M ORPH, CBC, DIFF #### [address] [address] Neutrophils/100 WBC (Bld) 57.1 % Normal 50.0-75.0 [facility] ([place]) Comment on above: Performed By: #### M ORPH, CBC, DIFF #### [address] [address] .NEUABSon 02-12-2024 Neutrophil, Absolute 2.3 10 3/mcL Normal 2.3-8.1 [facility] ([place]) Comment on above: Performed By: #### M ORPH, CBC, DIFF #### [address] [address] CBCon 02-12-2024 Erythrocyte distribution width (RBC) [Ratio] 17.3 % High 11.5-15.5 [facility] ([place]) Comment on above: Performed By: #### M ORPH, CBC, DIFF #### [address] [address] Hematocrit (Bld) [Volume fraction] 29.6 % Low 34.0-46.0 [facility] ([place] Comment on above: Performed By: #### M ORPH, CBC, DIFF #### [place] [phone] Hgb 9.6 G/dL Low 12.0-16.0 [facility] ([place] Comment on above: Performed By: #### M ORPH, CBC, DIFF #### [address] [address] MCH (RBC) [Entitic mass] 30.7 pg Normal 27.0-33.0 [facility] ([place] Comment on above: Performed By: #### M ORPH, CBC, DIFF #### [place] [phone] MCHC 32.6 G/dL Normal 32.0-36.0 [facility] ([place] Comment on above: Performed By: #### M ORPH, CBC, DIFF #### [address] [address] MCV (RBC) [Entitic vol] 94.0 fL Normal 80.0-99.0 [facility] ([place]) Comment on above: Performed By: #### M ORPH, CBC, DIFF #### [place] [id number] Platelet 215 10 3/mcL Normal 150-450 [facility] ([place]) Comment on above: Performed By: #### M ORPH, CBC, DIFF #### [place] [phone] Platelet mean volume (Bld) [Entitic vol] 7.5 fL Normal 6.6-10.5 [facility] ([place]) Comment on above: Performed By: #### M ORPH, CBC, DIFF #### [facility] [address] [place] [address] RBC 3.15 10 6/mcL Low 4.10-5.30 [facility] ([place]) Comment on above: Performed By: #### M ORPH, CBC, DIFF #### [facility] [address] [place] [address] WBC 4.1 10 3/mcL Low 4.5-10.8 [facility] ([place]) Comment on above: Performed By: #### M ORPH, CBC, DIFF #### [place] [id number] [place] [address] LABORATORYOrdered By: SYSTEM SYSTEM on 02-12-2024 Basophils [...] 02/11/2024 5:26:58 PM Ordering Provider: DRE Woody [facility] ([place]) [facility] 02-10-2024 Hematocrit (Bld) [Volume fraction] 29.5 % Low 34.0-46.0 [facility] ([place]) Comment on above: Performed By: #### U A #### [facility] [address] [place], [place] [address] Hgb 9.9 G/dL Low 12.0-16.0 [facility] ([place]) Comment on above: Performed By: #### U A #### [place] [address] [place], [place] [address] LABORATORYOrdered By: SYSTEM SYSTEM on 02-10-2024 Hematocrit (Bld) [Volume fraction] 29.5 % Low 34.0 - 46.0 % AH Workflow SS Hemoglobin (Bld) [Mass/Vol] 9.9 G/dL Low 12.0 - 16.0 G/dL AH Workflow SS .Manual Diffon 02-09-2024 Basophil %, Manual 2.0 % Normal 0.0-2.5 [facility] ([place]) Comment on above: Performed By: #### M ORPH, CBC, DIFF #### [address] [address] Basophil, Abs Manual 0.1 10 3/mcL Normal 0.0-0.3 [facility] ([place]) Comment on above: Performed By: #### M ORPH, CBC, DIFF #### [address] [address] Eosinophil %, Manual 5.0 % Normal 0.0-6.0 [facility] ([place]) Comment on above: Performed By: #### M ORPH, CBC, DIFF #### [address] [address] Eosinophil, Abs Manual 0.4 10 3/mcL Normal 0.0-0.7 [facility] ([place] Comment on above: Performed By: #### M ORPH, CBC, DIFF #### [address] [address] Lymphocyte %, Manual 32.0 % Normal 20.0-40.0 [facility] ([place] Comment on above: Performed By: #### M ORPH, CBC, DIFF #### [address] [address] Lymphocyte, Abs Manual 2.2 10 3/mcL Normal 0.9-4.3 [facility] ([place] Comment on above: Performed By: #### M ORPH, CBC, DIFF #### [address] [address] Monocyte %, Manual 7.0 % Normal 2.0-13.0 [facility] ([place]) Comment on above: Performed By: #### M ORPH, CBC, DIFF #### [address] [address] Monocyte, Abs Manual 0.5 10 3/mcL Normal 0.1-1.4 [facility] ([place] Comment on above: Performed By: #### M ORPH, CBC, DIFF #### [address] [address] Neutrophil %, Manual 54.0 % Normal 50.0-75.0 [facility] ([place] Comment on above: Performed By: #### M ORPH, CBC, DIFF #### [address] [address] Neutrophil, Abs Manual 3.7 10 3/mcL Normal 2.3-8.1 [facility] ([place] Comment on above: Performed By: #### M ORPH, CBC, DIFF #### [address] [address] Nucleated RBC 0.0 /100 WBC Normal [facility] ([place]) Comment on above: Performed By: #### M ORPH, CBC, DIFF #### [address] [address] .Morphon 02-09-2024 Anisocytosis Ql (Bld) 1+ Normal [facility] ([place]) Comment on above: Performed By: #### M ORPH, CBC, DIFF #### [address] [address] Platelet Estimate Normal Normal [facility] ([place] Comment on above: Performed By: #### M ORPH, CBC, DIFF #### [address] [address] Polychrom 1+ Normal [facility] ([place] Comment on above: Performed By: #### M ORPH, CBC, DIFF #### [place] [address] [address] CBCon 02-09-2024 Platelet 220 10 3/mcL Normal 150-450 [facility] ([place]) Comment on above: Performed By: #### M ORPH, CBC, DIFF #### [address] [address] Platelet mean volume (Bld) [Entitic vol] 7.5 fL Normal 6.6-10.5 [facility] ([place]) Comment on above: Performed By: #### M ORPH, CBC, DIFF #### [address] [address] WBC 7.0 10 3/mcL Normal 4.5-10.8 [facility] ([place] Comment on above: Performed By: #### M ORPH, CBC, DIFF #### [address] [address] Erythrocyte distribution width (RBC) [Ratio] 16.9 % High 11.5-15.5 [facility] ([place]) Comment on above: Performed By: #### M ORPH, CBC, DIFF #### [address] [address] Hematocrit (Bld) [Volume fraction] 29.8 % Low 34.0-46.0 [facility] ([place] Comment on above: Performed By: #### M ORPH, CBC, DIFF #### [address] [address] Hgb 9.8 G/dL Low 12.0-16.0 [facility] ([place] Comment on above: Performed By: #### M ORPH, CBC, DIFF #### [address] [address] MCH (RBC) [Entitic mass] 30.8 pg Normal 27.0-33.0 [facility] ([place] Comment on above: Performed By: #### M ORPH, CBC, DIFF #### [address] [address] MCHC 33.0 G/dL Normal 32.0-36.0 [facility] ([place] Comment on above: Performed By: #### M ORPH, CBC, DIFF #### [facility] [address] [place] [address] MCV (RBC) [Entitic vol] 93.3 fL Normal 80.0-99.0 [facility] ([place]) Comment on above: Performed By: #### M ORPH, CBC, DIFF #### [facility] [address] [place] [address] RBC 3.19 10 6/mcL Low 4.10-5.30 [facility] ([place]) Comment on above: Performed By: #### M ORPH, CBC, DIFF #### [facility] [address] [place] [address] LABORATORYOrdered By: SYSTEM SYSTEM on 02-09-2024 Anisocytosis [...] Basophil, Absolute 0.1 10 3/mcL Normal 0.0-0.3 [facility] ([place] Comment on above: Performed By: #### M G, CBC, BMP, ADIFF, ANEU, GFR #### [address] [address] Basophils/100 WBC (Bld) 2.3 % Normal 0.0-2.5 [facility] ([place] Comment on above: Performed By: #### M G, CBC, BMP, ADIFF, ANEU, GFR #### [address] [address] Eosinophil, Absolute 0.1 10 3/mcL Normal 0.0-0.7 [facility] ([place]) Comment on above: Performed By: #### M G, CBC, BMP, ADIFF, ANEU, GFR #### [address] [address] Eosinophils/100 WBC (Bld) 2.9 % Normal 0.0-6.0 [facility] ([place] Comment on above: Performed By: #### M G, CBC, BMP, ADIFF, ANEU, GFR #### [address] [address] Lymphocyte, Absolute 0.8 10 3/mcL Low 0.9-4.3 [facility] ([place] Comment on above: Performed By: #### M G, CBC, BMP, ADIFF, ANEU, GFR #### [address] [address] Lymphocytes/100 WBC (Bld) 20.7 % Normal 20.0-40.0 [facility] ([place] Comment on above: Performed By: #### M G, CBC, BMP, ADIFF, ANEU, GFR #### [address] [address] Monocyte, Absolute 0.4 10 3/mcL Normal 0.1-1.4 [facility] ([place] Comment on above: Performed By: #### M G, CBC, BMP, ADIFF, ANEU, GFR #### [address] [address] Monocytes/100 WBC (Bld) 10.1 % Normal 2.0-13.0 [facility] ([place] Comment on above: Performed By: #### M G, CBC, BMP, ADIFF, ANEU, GFR #### [address] [address] Neutrophils/100 WBC (Bld) 64.0 % Normal 50.0-75.0 [facility] ([place] Comment on above: Performed By: #### M G, CBC, BMP, ADIFF, ANEU, GFR #### [address] [address] .GFRon 02-08-2024 GFR >60 Normal [facility] ([place]) Comment on above: Result Comment: GFR Population [...] G, CBC, BMP, ADIFF, ANEU, GFR #### [address] [address] GFR Non- >60 Normal [facility] ([place] Comment on above: Result Comment: GFR Population [...] G, CBC, BMP, ADIFF, ANEU, GFR #### [address] [address] .NEUABSon 02-08-2024 Neutrophil, Absolute 2.6 10 3/mcL Normal 2.3-8.1 [facility] ([place]) Comment on above: Performed By: #### M G, CBC, BMP, ADIFF, ANEU, GFR #### [address] [address] BMPon 02-08-2024 BUN/Creatinine Ratio 14.5 ratio Normal 10.0-22.0 [facility] ([place] Comment on above: Performed By: #### M G, CBC, BMP, ADIFF, ANEU, GFR #### [address] [address] Calcium [Mass/Vol] 8.5 mg/dL Low 8.7-10.4 [facility] ([place]) Comment on above: Performed By: #### M G, CBC, BMP, ADIFF, ANEU, GFR #### [address] [address] Chloride [Moles/Vol] 107 mmol/L Normal 98-110 [facility] ([place]) Comment on above: Performed By: #### M G, CBC, BMP, ADIFF, ANEU, GFR #### [address] [address] CO2 [Moles/Vol] 26 mmol/L Normal 22-32 [facility] ([place]) Comment on above: Performed By: #### M G, CBC, BMP, ADIFF, ANEU, GFR #### [address] [address] Creatinine [Mass/Vol] 0.62 mg/dL Normal 0.50-1.20 [facility] ([place]) Comment on above: Performed By: #### M G, CBC, BMP, ADIFF, ANEU, GFR #### [address] [address] Electrolyte Balance 9.0 mEq/L Normal 4.0-15.0 [facility] ([place]) Comment on above: Performed By: #### M G, CBC, BMP, ADIFF, ANEU, GFR #### [address] [address] Glucose [Mass/Vol] 108 mg/dL Normal 82-115 [facility] ([place]) Comment on above: Performed By: #### M G, CBC, BMP, ADIFF, ANEU, GFR #### [address] [address] Potassium [Moles/Vol] 4.0 mmol/L Normal 3.5-5.0 [facility] ([place]) Comment on above: Performed By: #### M G, CBC, BMP, ADIFF, ANEU, GFR #### [address] [address] Sodium [Moles/Vol] 142 mmol/L Normal 136-145 [facility] ([place]) Comment on above: Performed By: #### M G, CBC, BMP, ADIFF, ANEU, GFR #### [address] [address] Urea nitrogen [Mass/Vol] 9.0 mg/dL Normal 8.0-22.0 [facility] ([place]) Comment on above: Performed By: #### M G, CBC, BMP, ADIFF, ANEU, GFR #### [address] [address] CBCon 02-08-2024 Erythrocyte distribution width (RBC) [Ratio] 16.4 % High 11.5-15.5 [facility] ([place]) Comment on above: Performed By: #### M G, CBC, BMP, ADIFF, ANEU, GFR #### [address] [address] Hematocrit (Bld) [Volume fraction] 32.7 % Low 34.0-46.0 [facility] ([place]) Comment on above: Performed By: #### M G, CBC, BMP, ADIFF, ANEU, GFR #### [address] [address] Hgb 10.8 G/dL Low 12.0-16.0 [facility] ([place]) Comment on above: Performed By: #### M G, CBC, BMP, ADIFF, ANEU, GFR #### [address] [address] MCH (RBC) [Entitic mass] 30.9 pg Normal 27.0-33.0 [facility] ([place]) Comment on above: Performed By: #### M G, CBC, BMP, ADIFF, ANEU, GFR #### [address] [address] MCHC 33.0 G/dL Normal 32.0-36.0 [facility] ([place]) Comment on above: Performed By: #### M G, CBC, BMP, ADIFF, ANEU, GFR #### [address] [place] [address] MCV (RBC) [Entitic vol] 93.5 fL Normal 80.0-99.0 [facility] ([place]) Comment on above: Performed By: #### M G, CBC, BMP, ADIFF, ANEU, GFR #### [address] [address] Platelet 224 10 3/mcL Normal 150-450 [facility] ([place]) Comment on above: Performed By: #### M G, CBC, BMP, ADIFF, ANEU, GFR #### [address] [address] Platelet mean volume (Bld) [Entitic vol] 7.3 fL Normal 6.6-10.5 [facility] ([place]) Comment on above: Performed By: #### M G, CBC, BMP, ADIFF, ANEU, GFR #### [place] [address] RBC 3.50 10 6/mcL Low 4.10-5.30 [facility] ([place]) Comment on above: Performed By: #### M G, CBC, BMP, ADIFF, ANEU, GFR #### [place] [address]277 WBC 4.1 10 3/mcL Low 4.5-10.8 [facility] ([place]) Comment on above: Performed By: #### M G, CBC, BMP, ADIFF, ANEU, GFR #### [address] [address] LABORATORYOrdered By: SYSTEM SYSTEM on 02-08-2024 Basophils [...] (S/P/Bld) [Vol rate/Area] ml/min/1.73sqm Invalid Interpretation Code [employer] S Comment on above: Interpretive Data: [...] (S/P/Bld) [Vol rate/Area] ml/min/1.73sqm Invalid Interpretation Code [employer] S Comment on above: Interpretive Data: [...] 20.7 % Normal 20.0 - 40.0 % Workflow SS Magnesium [Mass/Vol] 2.1 mg/dL Normal 1.6 - 2 .4 mg/dL ADM SS Monocytes (Bld) [#/Vol] 0.4 103/mcL Normal 0.1 - 1.4 10^3/mcL Workflow SS Monocytes/100 WBC (Bld) 10.1 % Normal 2.0 - 13.0 % Workflow SS Neutrophils (Bld) [#/Vol] 2.6 103/mcL [...] 02-08-2024 Magnesium [Mass/Vol] 2.1 mg/dL Normal 1.6-2.4 [facility] ([place]) Comment on above: Performed By: #### M G, CBC, BMP, ADIFF, ANEU, GFR #### Rosa Maria [address] [address] .Auto Diffon 02-07-2024 Basophil, Absolute 0.1 10 3/mcL Normal 0.0-0.3 [facility] ([place]) Comment on above: Performed By: #### A MANJULA, CBC, ADIFF, GFR, BMP #### Rosa Maria [address] [address] Basophils/100 WBC (Bld) 1.4 % Normal 0.0-2.5 [facility] ([place]) Comment on above: Performed By: #### A MANJULA, CBC, ADIFF, GFR, BMP #### [address] [address] Eosinophil, Absolute 0.1 10 3/mcL Normal 0.0-0.7 [facility] ([place]) Comment on above: Performed By: #### A MANJULA, CBC, ADIFF, GFR, BMP #### [address] [address] Eosinophils/100 WBC (Bld) 2.6 % Normal 0.0-6.0 [facility] ([place]) Comment on above: Performed By: #### A MANJULA, CBC, ADIFF, GFR, BMP #### [address] [address] Lymphocyte, Absolute 1.1 10 3/mcL Normal 0.9-4.3 [facility] ([place]) Comment on above: Performed By: #### A MANJULA, CBC, ADIFF, GFR, BMP #### [address] [address] Lymphocytes/100 WBC (Bld) 23.2 % Normal 20.0-40.0 [facility] ([place]) Comment on above: Performed By: #### A MANJULA, CBC, ADIFF, GFR, BMP #### [address] [address] Monocyte, Absolute 0.5 10 3/mcL Normal 0.1-1.4 [facility] ([place]) Comment on above: Performed By: #### A MANJULA, CBC, ADIFF, GFR, BMP #### [address] [address] Monocytes/100 WBC (Bld) 10.1 % Normal 2.0-13.0 [facility] ([place]) Comment on above: Performed By: #### A MANJULA, CBC, ADIFF, GFR, BMP #### [address] [address] Neutrophils/100 WBC (Bld) 62.7 % Normal 50.0-75.0 [facility] ([place]) Comment on above: Performed By: #### A MANJULA, CBC, ADIFF, GFR, BMP #### [address] [address] .GFRon 02-07-2024 GFR >60 Normal [facility] ([place]) Comment on above: Result Comment: GFR Population [...] A MANJULA, CBC, ADIFF, GFR, BMP #### [address] [address] GFR Non- >60 Normal [facility] ([place]) Comment on above: Result Comment: GFR Population [...] A MANJULA, CBC, ADIFF, GFR, BMP #### [address] [address] .NEUABSon 02-07-2024 Neutrophil, Absolute 2.8 10 3/mcL Normal 2.3-8.1 [facility] ([place]) Comment on above: Performed By: #### A MANJULA, CBC, ADIFF, GFR, BMP #### [address] [address] BMPon 02-07-2024 BUN/Creatinine Ratio 14.3 ratio Normal 10.0-22.0 [facility] ([place]) Comment on above: Performed By: #### A MANJULA, CBC, ADIFF, GFR, BMP #### [address] [address] Calcium [Mass/Vol] 8.4 mg/dL Low 8.7-10.4 [facility] ([place]) Comment on above: Performed By: #### A MANJULA, CBC, ADIFF, GFR, BMP #### [place] [phone] Chloride [Moles/Vol] 107 mmol/L Normal 98-110 [facility] ([place]) Comment on above: Performed By: #### A MANJULA, CBC, ADIFF, GFR, BMP #### [place] [phone] CO2 [Moles/Vol] 27 mmol/L Normal 22-32 [facility] ([place]) Comment on above: Performed By: #### A MANJULA, CBC, ADIFF, GFR, BMP #### [address] [address] Creatinine [Mass/Vol] 0.70 mg/dL Normal 0.50-1.20 [facility] ([place]) Comment on above: Performed By: #### A MANJULA, CBC, ADIFF, GFR, BMP #### [address] [address] Electrolyte Balance 7.0 mEq/L Normal 4.0-15.0 [facility] ([place]) Comment on above: Performed By: #### A MANJULA, CBC, ADIFF, GFR, BMP #### [address] [address] Glucose [Mass/Vol] 94 mg/dL Normal 82-115 [facility] ([place]) Comment on above: Performed By: #### A MANJULA, CBC, ADIFF, GFR, BMP #### [address] [address] Potassium [Moles/Vol] 4.2 mmol/L Normal 3.5-5.0 [facility] ([place]) Comment on above: Performed By: #### A MANJULA, CBC, ADIFF, GFR, BMP #### [address] [address] Sodium [Moles/Vol] 141 mmol/L Normal 136-145 [facility] ([place]) Comment on above: Performed By: #### A MANJULA, CBC, ADIFF, GFR, BMP #### [place] [phone] Urea nitrogen [Mass/Vol] 10.0 mg/dL Normal 8.0-22.0 [facility] ([place]) Comment on above: Performed By: #### A MANJULA, CBC, ADIFF, GFR, BMP #### [place] [phone] CBCon 02-07-2024 Erythrocyte distribution width (RBC) [Ratio] 16.2 % High 11.5-15.5 [facility] ([place]) Comment on above: Performed By: #### A MANJULA, CBC, ADIFF, GFR, BMP #### [place] [phone] Hematocrit (Bld) [Volume fraction] 32.8 % Low 34.0-46.0 [facility] ([place]) Comment on above: Performed By: #### A MANJULA, CBC, ADIFF, GFR, BMP #### [place] [phone] Hgb 10.7 G/dL Low 12.0-16.0 [facility] ([place]) Comment on above: Performed By: #### A MANJULA, CBC, ADIFF, GFR, BMP #### [place] [phone] MCH (RBC) [Entitic mass] 30.6 pg Normal 27.0-33.0 [facility] ([place]) Comment on above: Performed By: #### A MANJULA, CBC, ADIFF, GFR, BMP #### [address] [address] MCHC 32.7 G/dL Normal 32.0-36.0 [facility] ([place]) Comment on above: Performed By: #### A MANJULA, CBC, ADIFF, GFR, BMP #### [address] [address] MCV (RBC) [Entitic vol] 93.6 fL Normal 80.0-99.0 [facility] ([place]) Comment on above: Performed By: #### A MANJULA, CBC, ADIFF, GFR, BMP #### [address] [address] Platelet 215 10 3/mcL Normal 150-450 [facility] ([place]) Comment on above: Performed By: #### A MANJULA, CBC, ADIFF, GFR, BMP #### [address] [address] Platelet mean volume (Bld) [Entitic vol] 7.5 fL Normal 6.6-10.5 [facility] ([place]) Comment on above: Performed By: #### A MANJULA, CBC, ADIFF, GFR, BMP #### [address] [address] RBC 3.50 10 6/mcL Low 4.10-5.30 [facility] ([place]) Comment on above: Performed By: #### A MANJULA, CBC, ADIFF, GFR, BMP #### [address] [address] WBC 4.5 10 3/mcL Normal 4.5-10.8 [facility] ([place]) Comment on above: Performed By: #### A MANJULA, CBC, ADIFF, GFR, BMP #### [address] [address] LABORATORYOrdered By: SYSTEM SYSTEM on 02-07-2024 Calcium [...] 02-07-2024 Magnesium [Mass/Vol] 1.9 mg/dL Normal 1.6-2.4 [facility] ([place]) Comment on above: Performed By: #### A MANJULA, CBC, ADIFF, GFR, BMP #### Rosa Maria [address] [address] .Auto Diffon 02-06-2024 Basophil, Absolute 0.1 10 3/mcL Normal 0.0-0.3 [facility] ([place] Comment on above: Performed By: #### M ORPH, CBC, DIFF #### [address] [address] Basophils/100 WBC (Bld) 1.5 % Normal 0.0-2.5 [facility] ([place]) Comment on above: Performed By: #### M ORPH, CBC, DIFF #### [address] [address] Eosinophil, Absolute 0.1 10 3/mcL Normal 0.0-0.7 [facility] ([place]) Comment on above: Performed By: #### M ORPH, CBC, DIFF #### [address] [address] Eosinophils/100 WBC (Bld) 2.6 % Normal 0.0-6.0 [facility] ([place]) Comment on above: Performed By: #### M ORPH, CBC, DIFF #### [address] [address] Lymphocyte, Absolute 0.9 10 3/mcL Normal 0.9-4.3 [facility] ([place] Comment on above: Performed By: #### M ORPH, CBC, DIFF #### [address] [address] Lymphocytes/100 WBC (Bld) 22.0 % Normal 20.0-40.0 [facility] ([place]) Comment on above: Performed By: #### M ORPH, CBC, DIFF #### [address] [address] Monocyte, Absolute 0.4 10 3/mcL Normal 0.1-1.4 [facility] ([place] Comment on above: Performed By: #### M ORPH, CBC, DIFF #### [address] [address] Monocytes/100 WBC (Bld) 9.3 % Normal 2.0-13.0 [facility] ([place]) Comment on above: Performed By: #### M ORPH, CBC, DIFF #### [address] [address] Neutrophils/100 WBC (Bld) 64.6 % Normal 50.0-75.0 [facility] ([place]) Comment on above: Performed By: #### M ORPH, CBC, DIFF #### [address] [address] .GFRon 02-06-2024 GFR >60 Normal [facility] ([place]) Comment on above: Result Comment: GFR Population [...] By: #### M ORPH, CBC, DIFF #### [address] [address] GFR Non- >60 Normal [facility] ([place]) Comment on above: Result Comment: GFR Population [...] By: #### M ORPH, CBC, DIFF #### [address] [address] .NEUABSon 02-06-2024 Neutrophil, Absolute 2.7 10 3/mcL Normal 2.3-8.1 [facility] ([place]) Comment on above: Performed By: #### M ORPH, CBC, DIFF #### [address] [address] BMPon 02-06-2024 BUN/Creatinine Ratio 14.8 ratio Normal 10.0-22.0 [facility] ([place]) Comment on above: Performed By: #### M ORPH, CBC, DIFF #### [address] [address] Calcium [Mass/Vol] 8.4 mg/dL Low 8.7-10.4 [facility] ([place]) Comment on above: Performed By: #### M ORPH, CBC, DIFF #### [address] [address] Chloride [Moles/Vol] 107 mmol/L Normal 98-110 [facility] ([place] Comment on above: Performed By: #### M ORPH, CBC, DIFF #### [address] [address] CO2 [Moles/Vol] 29 mmol/L Normal 22-32 [facility] ([place]) Comment on above: Performed By: #### M ORPH, CBC, DIFF #### [address] [address] Creatinine [Mass/Vol] 0.61 mg/dL Normal 0.50-1.20 [facility] ([place]) Comment on above: Performed By: #### M ORADILENE, CBC, DIFF #### [address] [address] Electrolyte Balance 4.0 mEq/L Normal 4.0-15.0 [facility] ([place]) Comment on above: Performed By: #### M ORPH, CBC, DIFF #### [address] [address] Glucose [Mass/Vol] 93 mg/dL Normal 82-115 [facility] ([place] Comment on above: Performed By: #### M ORADILENE, CBC, DIFF #### [address] [address] Potassium [Moles/Vol] 4.1 mmol/L Normal 3.5-5.0 [facility] ([place] Comment on above: Performed By: #### M ORADILENE, CBC, DIFF #### [address] [address] Sodium [Moles/Vol] 140 mmol/L Normal 136-145 [facility] ([place] Comment on above: Performed By: #### M ORADILENE, CBC, DIFF #### [address] [address] Urea nitrogen [Mass/Vol] 9.0 mg/dL Normal 8.0-22.0 [facility] ([place]) Comment on above: Performed By: #### M ORPH, CBC, DIFF #### [address] [address] CBCon 02-06-2024 Erythrocyte distribution width (RBC) [Ratio] 16.3 % High 11.5-15.5 [facility] ([place]) Comment on above: Performed By: #### M ORPH, CBC, DIFF #### [address] [address] Hematocrit (Bld) [Volume fraction] 28.6 % Low 34.0-46.0 [facility] ([place]) Comment on above: Performed By: #### M ORPH, CBC, DIFF #### [address] [address] Hgb 9.5 G/dL Low 12.0-16.0 [facility] ([place]) Comment on above: Performed By: #### M ORPH, CBC, DIFF #### [address] [address] MCH (RBC) [Entitic mass] 30.7 pg Normal 27.0-33.0 [facility] ([place]) Comment on above: Performed By: #### M ORPH, CBC, DIFF #### [address] [address] MCHC 33.4 G/dL Normal 32.0-36.0 [facility] ([place]) Comment on above: Performed By: #### M ORPH, CBC, DIFF #### [address] [address] MCV (RBC) [Entitic vol] 92.1 fL Normal 80.0-99.0 [facility] ([place]) Comment on above: Performed By: #### M ORPH, CBC, DIFF #### [address] [address] Platelet 219 10 3/mcL Normal 150-450 [facility] ([place]) Comment on above: Performed By: #### M ORPH, CBC, DIFF #### [address] [address] Platelet mean volume (Bld) [Entitic vol] 7.4 fL Normal 6.6-10.5 [facility] ([place]) Comment on above: Performed By: #### M ORPH, CBC, DIFF #### [address] [address] RBC 3.10 10 6/mcL Low 4.10-5.30 [facility] ([place]) Comment on above: Performed By: #### M ORPH, CBC, DIFF #### [address] [address] WBC 4.2 10 3/mcL Low 4.5-10.8 [facility] ([place]) Comment on above: Performed By: #### M ORPH, CBC, DIFF #### [address] [address] MGon 02-06-2024 Magnesium [Mass/Vol] 2.0 mg/dL Normal 1.6-2.4 [facility] ([place] Comment on above: Performed By: #### M ORPH, CBC, DIFF #### [address] [address] .Auto Diffon 02-05-2024 Basophil, Absolute 0.0 10 3/mcL Normal 0.0-0.3 [facility] ([place] Comment on above: Performed By: #### M ORPH, CBC, DIFF #### [address] [address] Basophils/100 WBC (Bld) 1.5 % Normal 0.0-2.5 [facility] ([place]) Comment on above: Performed By: #### M ORPH, CBC, DIFF #### [address] [address] Eosinophil, Absolute 0.1 10 3/mcL Normal 0.0-0.7 [facility] ([place] Comment on above: Performed By: #### M ORPH, CBC, DIFF #### [address] [address] Eosinophils/100 WBC (Bld) 3.4 % Normal 0.0-6.0 [facility] ([place]) Comment on above: Performed By: #### M ORPH, CBC, DIFF #### [address] [address] Lymphocyte, Absolute 0.8 10 3/mcL Low 0.9-4.3 [facility] ([place] Comment on above: Performed By: #### M ORPH, CBC, DIFF #### [address] [address] Lymphocytes/100 WBC (Bld) 26.8 % Normal 20.0-40.0 [facility] ([place]) Comment on above: Performed By: #### M ORPH, CBC, DIFF #### [address] [address] Monocyte, Absolute 0.3 10 3/mcL Normal 0.1-1.4 [facility] ([place] Comment on above: Performed By: #### M ORPH, CBC, DIFF #### [address] [address] Monocytes/100 WBC (Bld) 10.9 % Normal 2.0-13.0 [facility] ([place]) Comment on above: Performed By: #### M ORPH, CBC, DIFF #### [address] [address] Neutrophils/100 WBC (Bld) 57.4 % Normal 50.0-75.0 [facility] ([place] Comment on above: Performed By: #### M ORPH, CBC, DIFF #### [address] [address] .GFRon 02-05-2024 GFR >60 Normal [facility] ([place] Comment on above: Result Comment: GFR Population [...] By: #### M ORPH, CBC, DIFF #### [address] [address] GFR Non- >60 Normal [facility] ([place]) Comment on above: Result Comment: GFR Population [...] By: #### M ORPH, CBC, DIFF #### [address] [address] .NEUABSon 02-05-2024 Neutrophil, Absolute 1.8 10 3/mcL Low 2.3-8.1 [facility] ([place] Comment on above: Performed By: #### M ORPH, CBC, DIFF #### [address] [address] BMPon 02-05-2024 BUN/Creatinine Ratio 20.3 ratio Normal 10.0-22.0 [facility] ([place] Comment on above: Order Comment: Nargisi ne for 0501 the morning of patient admission. Performed By: #### M ORPH, CBC, DIFF #### [place] [phone] Calcium [Mass/Vol] 8.3 mg/dL Low 8.7-10.4 [facility] ([place]) Comment on above: Order Comment: Routi ne for 0501 the morning of patient admission. Performed By: #### M ORPH, CBC, DIFF #### [address] [address] Chloride [Moles/Vol] 108 mmol/L Normal 98-110 [facility] ([place] Comment on above: Order Comment: Routi ne for 0501 the morning of patient admission. Performed By: #### M ORPH, CBC, DIFF #### [address] [address] CO2 [Moles/Vol] 27 mmol/L Normal 22-32 [facility] ([place]) Comment on above: Order Comment: Routi ne for 0501 the morning of patient admission. Performed By: #### M ORPH, CBC, DIFF #### [place] [phone] Creatinine [Mass/Vol] 0.59 mg/dL Normal 0.50-1.20 [facility] ([place] Comment on above: Order Comment: Routi ne for 0501 the morning of patient admission. Performed By: #### M ORPH, CBC, DIFF #### [address] [address] Electrolyte Balance 7.0 mEq/L Normal 4.0-15.0 [facility] ([place]) Comment on above: Order Comment: Routi ne for 0501 the morning of patient admission. Performed By: #### M ORPH, CBC, DIFF #### [address] [address] Glucose [Mass/Vol] 85 mg/dL Normal 82-115 [facility] ([place]) Comment on above: Order Comment: Routi ne for 0501 the morning of patient admission. Performed By: #### M ORPH, CBC, DIFF #### [place] [phone] Potassium [Moles/Vol] 4.1 mmol/L Normal 3.5-5.0 [facility] ([place]) Comment on above: Order Comment: Routi ne for 0501 the morning of patient admission. Performed By: #### M ORPH, CBC, DIFF #### [place] [phone] Sodium [Moles/Vol] 142 mmol/L Normal 136-145 [facility] ([place] Comment on above: Order Comment: Routi ne for 0501 the morning of patient admission. Performed By: #### M ORPH, CBC, DIFF #### [place] [phone] Urea nitrogen [Mass/Vol] 12.0 mg/dL Normal 8.0-22.0 [facility] ([place]) Comment on above: Order Comment: Routi ne for 0501 the morning of patient admission. Performed By: #### M ORPH, CBC, DIFF #### [address] [address] CBCon 02-05-2024 Erythrocyte distribution width (RBC) [Ratio] 16.1 % High 11.5-15.5 [facility] ([place]) Comment on above: Order Comment: Routi ne for 0501 the morning of patient admission. Performed By: #### M ORPH, CBC, DIFF #### [place] [address] Hematocrit (Bld) [Volume fraction] 30.3 % Low 34.0-46.0 [facility] ([place]) Comment on above: Order Comment: Routi ne for 0501 the morning of patient admission. Performed By: #### M ORPH, CBC, DIFF #### [place] [address] Hgb 10.0 G/dL Low 12.0-16.0 [facility] ([place]) Comment on above: Order Comment: Routi ne for 0501 the morning of patient admission. Performed By: #### M ORPH, CBC, DIFF #### [place] [address] MCH (RBC) [Entitic mass] 30.6 pg Normal 27.0-33.0 [facility] ([place]) Comment on above: Order Comment: Routi ne for 0501 the morning of patient admission. Performed By: #### M ORPH, CBC, DIFF #### [place] [address] MCHC 32.9 G/dL Normal 32.0-36.0 [facility] ([place]) Comment on above: Order Comment: Routi ne for 0501 the morning of patient admission. Performed By: #### M ORPH, CBC, DIFF #### [place] [phone] MCV (RBC) [Entitic vol] 93.0 fL Normal 80.0-99.0 [facility] ([place]) Comment on above: Order Comment: Routi ne for 0501 the morning of patient admission. Performed By: #### M ORPH, CBC, DIFF #### [place] [id number] Platelet 208 10 3/mcL Normal 150-450 [facility] ([place]) Comment on above: Order Comment: Routi ne for 0501 the morning of patient admission. Performed By: #### M ORPH, CBC, DIFF #### [place] [address] [address] Platelet mean volume (Bld) [Entitic vol] 7.7 fL Normal 6.6-10.5 [facility] ([place]) Comment on above: Order Comment: Routi ne for 0501 the morning of patient admission. Performed By: #### M ORPH, CBC, DIFF #### [place] [address] RBC 3.26 10 6/mcL Low 4.10-5.30 [facility] ([place]) Comment on above: Order Comment: Routi ne for 0501 the morning of patient admission. Performed By: #### M ORPH, CBC, DIFF #### [place] [address] WBC 3.2 10 3/mcL Low 4.5-10.8 [facility] ([place]) Comment on above: Order Comment: Routi ne for 0501 the morning of patient admission. Performed By: #### M ORPH, CBC, DIFF #### [address] [address] .Auto Diffon 02-04-2024 Basophil, Absolute 0.1 10 3/mcL Normal 0.0-0.2 [facility] ([place] Comment on above: Performed By: #### M ORPH, CBC, DIFF #### [place] [address] Basophils/100 WBC (Bld) 1.4 % Normal 0.0-2.5 [facility] ([place]) Comment on above: Performed By: #### M ORPH, CBC, DIFF #### [address] [address] Eosinophil, Absolute 0.2 10 3/mcL Normal 0.0-0.4 [facility] ([place] Comment on above: Performed By: #### M ORPH, CBC, DIFF #### [address] [address] Eosinophils/100 WBC (Bld) 3.5 % Normal 0.0-7.0 [facility] ([place]) Comment on above: Performed By: #### M ORPH, CBC, DIFF #### [address] [address] Lymphocyte, Absolute 0.8 10 3/mcL Normal 0.8-3.9 [facility] ([place] Comment on above: Performed By: #### M ORPH, CBC, DIFF #### [address] [address] Lymphocytes/100 WBC (Bld) 16.1 % Normal 10.0-50.0 [facility] ([place]) Comment on above: Performed By: #### M ORPH, CBC, DIFF #### [address] [address] Monocyte, Absolute 0.5 10 3/mcL Normal 0.2-1.0 [facility] ([place]) Comment on above: Performed By: #### M ORPH, CBC, DIFF #### [address] [address] Monocytes/100 WBC (Bld) 11.2 % Normal 1.7-13.0 [facility] ([place]) Comment on above: Performed By: #### M ORPH, CBC, DIFF #### [address] [address] Neutrophils/100 WBC (Bld) 67.8 % Normal 37.0-80.0 [facility] ([place]) Comment on above: Performed By: #### M ORPH, CBC, DIFF #### [address] [address] .GFRon 02-04-2024 GFR 100 ml/min/1.73sqm Normal [facility] ([place]) Comment on above: Result Comment: GFR Population [...] By: #### M ORPH, CBC, DIFF #### [address] [address] GFR Non- 82 ml/min/1.73sqm Normal [facility] ([place]) Comment on above: Result Comment: GFR Population [...] By: #### M ORPH, CBC, DIFF #### [address] [address] .NEUABSon 02-04-2024 Neutrophil, Absolute 3.2 10 3/mcL Normal 2.9-6.2 [facility] ([place]) Comment on above: Performed By: #### M ORPH, CBC, DIFF #### [address] [address] BMPon 02-04-2024 BUN/Creatinine Ratio 16 ratio Normal 7-27 [facility] ([place]) Comment on above: Performed By: #### M ORPH, CBC, DIFF #### [address] [address] Calcium [Mass/Vol] 8.0 mg/dL Low 8.4-10.2 [facility] ([place]) Comment on above: Performed By: #### M ORPH, CBC, DIFF #### [address] [address] Chloride [Moles/Vol] 104 mmol/L Normal 98-107 [facility] ([place]) Comment on above: Performed By: #### M ORPH, CBC, DIFF #### [address] [address] CO2 [Moles/Vol] 29 mmol/L Normal 23-31 [facility] ([place]) Comment on above: Performed By: #### M ORPH, CBC, DIFF #### [address] [address] Creatinine [Mass/Vol] 0.68 mg/dL Normal 0.55-1.02 [facility] ([place]) Comment on above: Performed By: #### M ORPH, CBC, DIFF #### [address] [address] Electrolyte Balance 8.0 mEq/L Normal 4.0-15.0 [facility] ([place]) Comment on above: Performed By: #### M ORPH, CBC, DIFF #### [address] [address] Glucose [Mass/Vol] 86 mg/dL Normal 83-110 [facility] ([place]) Comment on above: Performed By: #### M ORPH, CBC, DIFF #### [address] [address] Potassium [Moles/Vol] 3.9 mmol/L Normal 3.5-5.1 [facility] ([place]) Comment on above: Performed By: #### M ORPH, CBC, DIFF #### [address] [address] Sodium [Moles/Vol] 141 mmol/L Normal 136-145 [facility] ([place]) Comment on above: Performed By: #### M ORPH, CBC, DIFF #### [address] [address] Urea nitrogen [Mass/Vol] 11 mg/dL Normal 7-18 [facility] ([place]) Comment on above: Performed By: #### M ORPH, CBC, DIFF #### [address] [address] CBCon 02-04-2024 Erythrocyte distribution width (RBC) [Ratio] 15.9 % High 11.5-14.5 [facility] ([place]) Comment on above: Performed By: #### M ORPH, CBC, DIFF #### [address] [address] Hematocrit (Bld) [Volume fraction] 28.7 % Low 37.0-47.0 [facility] ([place]) Comment on above: Performed By: #### M ORPH, CBC, DIFF #### [address] [address] Hgb 9.5 G/dL Low 12.0-16.0 [facility] ([place]) Comment on above: Performed By: #### M ORPH, CBC, DIFF #### [address] [address] MCH (RBC) [Entitic mass] 31.1 pg Normal 27.0-31.2 [facility] ([place]) Comment on above: Performed By: #### M ORPH, CBC, DIFF #### [place] [address] MCHC 33.1 G/dL Normal 33.0-37.0 [facility] ([place]) Comment on above: Performed By: #### M ORPH, CBC, DIFF #### [place] [phone] MCV (RBC) [Entitic vol] 93.9 fL Normal 80.0-94.0 [facility] ([place]) Comment on above: Performed By: #### M ORPH, CBC, DIFF #### [place] [id number] Platelet 187 10 3/mcL Normal 130-400 [facility] ([place]) Comment on above: Performed By: #### M ORPH, CBC, DIFF #### [address] [address] Platelet mean volume (Bld) [Entitic vol] 7.4 fL Normal 7.4-10.4 [facility] ([place]) Comment on above: Performed By: #### M ORPH, CBC, DIFF #### [place] [id number] RBC 3.05 10 6/mcL Low 4.20-5.40 [facility] ([place]) Comment on above: Performed By: #### M ORPH, CBC, DIFF #### [address] [address] WBC 4.8 10 3/mcL Normal 4.6-10.8 [facility] ([place]) Comment on above: Performed By: #### M ORPH, CBC, DIFF #### [place] [phone] [place] [address] LABORATORYOrdered By: SYSTEM SYSTEM on 02-04-2024 Basophil, [...] 02-04-2024 Magnesium [Mass/Vol] 2.0 mg/dL Normal 1.8-2.4 [facility] ([place]) Comment on above: Performed By: #### M ORPH, CBC, DIFF #### [place] [address] No Panel Informationon 02-03 Microscopic examination of blood, culture Culture has been received in lab and is no growth to date. Routine cultures are held for 5 days. [facility] .Auto Diffon 02-03-2024 Basophil, Absolute 0.0 10 3/mcL Normal 0.0-0.2 [facility] ([place]) Comment on above: Performed By: #### A MANJULA, CBC, ADIFF, GFR, BMP #### [facility] [address] [place], [place] [address] Basophils/100 WBC (Bld) 0.7 % Normal 0.0-2.5 [facility] ([place]) Comment on above: Performed By: #### A MANJULA, CBC, ADIFF, GFR, BMP #### [address] [address] Eosinophil, Absolute 0.1 10 3/mcL Normal 0.0-0.4 [facility] ([place]) Comment on above: Performed By: #### A MANJULA, CBC, ADIFF, GFR, BMP #### [address] [address] Eosinophils/100 WBC (Bld) 2.4 % Normal 0.0-7.0 [facility] ([place]) Comment on above: Performed By: #### A MANJULA, CBC, ADIFF, GFR, BMP #### [address] [address] Lymphocyte, Absolute 0.5 10 3/mcL Low 0.8-3.9 [facility] ([place]) Comment on above: Performed By: #### A MANJULA, CBC, ADIFF, GFR, BMP #### [address] [address] Lymphocytes/100 WBC (Bld) 10.0 % Normal 10.0-50.0 [facility] ([place]) Comment on above: Performed By: #### A MANJULA, CBC, ADIFF, GFR, BMP #### [address] [address] Monocyte, Absolute 0.5 10 3/mcL Normal 0.2-1.0 [facility] ([place]) Comment on above: Performed By: #### A MANJULA, CBC, ADIFF, GFR, BMP #### [address] [address] Monocytes/100 WBC (Bld) 10.2 % Normal 1.7-13.0 [facility] ([place]) Comment on above: Performed By: #### A MANJULA, CBC, ADIFF, GFR, BMP #### [address] [address] Neutrophils/100 WBC (Bld) 76.7 % Normal 37.0-80.0 [facility] ([place]) Comment on above: Performed By: #### A MANJULA, CBC, ADIFF, GFR, BMP #### [address] [address] .GFRon 02-03-2024 GFR 103 ml/min/1.73sqm Normal [facility] ([place]) Comment on above: Result Comment: GFR Population [...] A MANJULA, CBC, ADIFF, GFR, BMP #### [address] [address] GFR Non- 85 ml/min/1.73sqm Normal [facility] ([place]) Comment on above: Result Comment: GFR Population [...] A MANJULA, CBC, ADIFF, GFR, BMP #### [address] [address] .NEUABSon 02-03-2024 Neutrophil, Absolute 3.6 10 3/mcL Normal 2.9-6.2 [facility] ([place]) Comment on above: Performed By: #### A MANJULA, CBC, ADIFF, GFR, BMP #### [address] [address] BMPon 02-03-2024 BUN/Creatinine Ratio 17 ratio Normal 7-27 [facility] ([place]) Comment on above: Performed By: #### A MANJULA, CBC, ADIFF, GFR, BMP #### [address] [address] Calcium [Mass/Vol] 8.1 mg/dL Low 8.4-10.2 [facility] ([place]) Comment on above: Performed By: #### A MANJULA, CBC, ADIFF, GFR, BMP #### [address] [address] Chloride [Moles/Vol] 104 mmol/L Normal 98-107 [facility] ([place]) Comment on above: Performed By: #### A MANJULA, CBC, ADIFF, GFR, BMP #### [address] [address] CO2 [Moles/Vol] 29 mmol/L Normal 23-31 [facility] ([place]) Comment on above: Performed By: #### A MANJULA, CBC, ADIFF, GFR, BMP #### [address] [address] Creatinine [Mass/Vol] 0.66 mg/dL Normal 0.55-1.02 [facility] ([place]) Comment on above: Performed By: #### A MANJULA, CBC, ADIFF, GFR, BMP #### [address] [address] Electrolyte Balance 8.0 mEq/L Normal 4.0-15.0 [facility] ([place]) Comment on above: Performed By: #### A MANJULA, CBC, ADIFF, GFR, BMP #### [address] [address] Glucose [Mass/Vol] 89 mg/dL Normal 83-110 [facility] ([place]) Comment on above: Performed By: #### A MANJULA, CBC, ADIFF, GFR, BMP #### [address] [address] Potassium [Moles/Vol] 3.9 mmol/L Normal 3.5-5.1 [facility] ([place]) Comment on above: Performed By: #### A MANJULA, CBC, ADIFF, GFR, BMP #### [place] [phone] Sodium [Moles/Vol] 141 mmol/L Normal 136-145 [facility] ([place]) Comment on above: Performed By: #### A MANJULA, CBC, ADIFF, GFR, BMP #### [place] [phone] Urea nitrogen [Mass/Vol] 11 mg/dL Normal 7-18 [facility] ([place]) Comment on above: Performed By: #### A MANJULA, CBC, ADIFF, GFR, BMP #### [place] [phone] CBCon 02-03-2024 Erythrocyte distribution width (RBC) [Ratio] 15.9 % High 11.5-14.5 [facility] ([place]) Comment on above: Performed By: #### M G, CBC, BMP, ADIFF, ANEU, GFR #### [address] [address] Hematocrit (Bld) [Volume fraction] 28.1 % Low 37.0-47.0 [facility] ([place]) Comment on above: Performed By: #### M G, CBC, BMP, ADIFF, ANEU, GFR #### [place] [phone] Hgb 9.4 G/dL Low 12.0-16.0 [facility] ([place]) Comment on above: Performed By: #### M G, CBC, BMP, ADIFF, ANEU, GFR #### [address] [address] MCH (RBC) [Entitic mass] 31.1 pg Normal 27.0-31.2 [facility] ([place]) Comment on above: Performed By: #### M G, CBC, BMP, ADIFF, ANEU, GFR #### [address] [address] MCHC 33.3 G/dL Normal 33.0-37.0 [facility] ([place]) Comment on above: Performed By: #### M G, CBC, BMP, ADIFF, ANEU, GFR #### [address] [address] MCV (RBC) [Entitic vol] 93.4 fL Normal 80.0-94.0 [facility] ([place]) Comment on above: Performed By: #### M G, CBC, BMP, ADIFF, ANEU, GFR #### [place] [phone] Platelet 187 10 3/mcL Normal 130-400 [facility] ([place]) Comment on above: Performed By: #### M G, CBC, BMP, ADIFF, ANEU, GFR #### [place] [address] Platelet mean volume (Bld) [Entitic vol] 7.7 fL Normal 7.4-10.4 [facility] ([place]) Comment on above: Performed By: #### M G, CBC, BMP, ADIFF, ANEU, GFR #### [address] [address] RBC 3.01 10 6/mcL Low 4.20-5.40 [facility] ([place]) Comment on above: Performed By: #### M G, CBC, BMP, ADIFF, ANEU, GFR #### [address] [address] WBC 4.7 10 3/mcL Normal 4.6-10.8 [facility] ([place]) Comment on above: Performed By: #### M G, CBC, BMP, ADIFF, ANEU, GFR #### [address] [address] LABORATORYOrdered By: SYSTEM SYSTEM on 02-03-2024 Basophil, [...] 02-03-2024 Magnesium [Mass/Vol] 2.0 mg/dL Normal 1.8-2.4 [facility] ([place]) Comment on above: Performed By: #### A MANJULA, CBC, ADIFF, GFR, BMP #### [place] [address] [place], [place] [address] No Panel Informationon 02-02 GSANA Gram Positive Cocci in pairs [facility] Microscopic examination of blood, culture Culture has been received in lab and is no growth to date. Routine cultures are held for 5 days. [facility] .GFRon 02-02-2024 GFR 105 ml/min/1.73sqm Normal [facility] ([place]) Comment on above: Result Comment: GFR Population [...] By: #### M ORPH, CBC, DIFF #### [place] [address] GFR Non- 87 ml/min/1.73sqm Normal [facility] ([place]) Comment on above: Result Comment: GFR Population [...] By: #### M ORPH, CBC, DIFF #### [place] [address] .Manual Diffon 02-02-2024 Basophil %, Manual 0.0 % Normal 0.0-2.5 [facility] ([place]) Comment on above: Performed By: #### M ORPH, CBC, DIFF #### [place] [address] Basophil, Abs Manual 0.0 10 3/mcL Normal 0.0-0.2 [facility] ([place]) Comment on above: Performed By: #### M ORPH, CBC, DIFF #### [place] [address] Eosinophil %, Manual 0.0 % Normal 0.0-7.0 [facility] ([place]) Comment on above: Performed By: #### M ORPH, CBC, DIFF #### [place] [address] Eosinophil, Abs Manual 0.0 10 3/mcL Normal 0.0-0.4 [facility] ([place]) Comment on above: Performed By: #### M ORPH, CBC, DIFF #### [place] [address] Lymphocyte %, Manual 13.0 % Normal 10.0-50.0 [facility] ([place] Comment on above: Performed By: #### M ORPH, CBC, DIFF #### [address] [address] Lymphocyte, Abs Manual 1.1 10 3/mcL Normal 0.8-3.9 [facility] ([place]) Comment on above: Performed By: #### M ORPH, CBC, DIFF #### [address] [address] Monocyte %, Manual 5.0 % Normal 1.7-13.0 [facility] ([place]) Comment on above: Performed By: #### M ORPH, CBC, DIFF #### [address] [address] Monocyte, Abs Manual 0.4 10 3/mcL Normal 0.2-1.0 [facility] ([place]) Comment on above: Performed By: #### M ORPH, CBC, DIFF #### [address] [address] Neutrophil %, Manual 82.0 % High 37.0-80.0 [facility] ([place] Comment on above: Performed By: #### M ORPH, CBC, DIFF #### [address] [address] Neutrophil, Abs Manual 6.8 10 3/mcL High 2.9-6.2 [facility] ([place]) Comment on above: Performed By: #### M ORPH, CBC, DIFF #### [address] [address] Nucleated RBC 0.0 /100 WBC Normal [facility] ([place]) Comment on above: Performed By: #### M ORPH, CBC, DIFF #### [address] [address] .Morphon 02-02-2024 Anisocytosis Ql (Bld) 1+ Normal [facility] ([place]) Comment on above: Performed By: #### M ORPH, CBC, DIFF #### [address] [address] Microcytosis 1+ Normal [facility] ([place]) Comment on above: Performed By: #### M ORPH, CBC, DIFF #### [place] [phone] [place] [address] Platelet Estimate Normal Normal [facility] ([place]) Comment on above: Performed By: #### M ORPH, CBC, DIFF #### [facility] [address] [place] [address] BMPon 02-02-2024 BUN/Creatinine Ratio 23 ratio Normal 7-27 [facility] ([place]) Comment on above: Performed By: #### U A #### [address] [address] Calcium [Mass/Vol] 8.1 mg/dL Low 8.4-10.2 [facility] ([place]) Comment on above: Performed By: #### U A #### [address] [address] Chloride [Moles/Vol] 103 mmol/L Normal 98-107 [facility]) Comment on above: Performed By: #### U A #### [address] [address] CO2 [Moles/Vol] 28 mmol/L Normal 23-31 [facility] ([place]) Comment on above: Performed By: #### U A #### [address] [address] Creatinine [Mass/Vol] 0.65 mg/dL Normal 0.55-1.02 [facility] ([place]) Comment on above: Performed By: #### U A #### [address] [address] Electrolyte Balance 8.0 mEq/L Normal 4.0-15.0 [facility] ([place]) Comment on above: Performed By: #### U A #### [address] [address] Glucose [Mass/Vol] 98 mg/dL Normal 83-110 [facility] ([place]) Comment on above: Performed By: #### U A #### [address] [address] Potassium [Moles/Vol] 3.7 mmol/L Normal 3.5-5.1 [facility] ([place]) Comment on above: Performed By: #### U A #### [place] [address] [place], [place] [address] Sodium [Moles/Vol] 139 mmol/L Normal 136-145 [facility] ([place]) Comment on above: Performed By: #### U A #### [place] [address] [place], [place] [address] Urea nitrogen [Mass/Vol] 15 mg/dL Normal 7-18 [facility] ([place]) Comment on above: Performed By: #### U A #### [place] [address] [place], [place] [address] CBCon 02-02-2024 Erythrocyte distribution width (RBC) [Ratio] 16.1 % High 11.5-14.5 [facility] ([place]) Comment on above: Order Comment: QNSQu estionable results Performed By: #### M ORPH, CBC, DIFF #### [address] [address] Platelet 187 10 3/mcL Normal 130-400 [facility] ([place]) Comment on above: Order Comment: QNSQu estionable results Performed By: #### M ORPH, CBC, DIFF #### [address] [address] Platelet mean volume (Bld) [Entitic vol] 7.7 fL Normal 7.4-10.4 [facility] ([place]) Comment on above: Order Comment: QNSQu estionable results Performed By: #### M ORPH, CBC, DIFF #### [address] [address] Hematocrit (Bld) [Volume fraction] 31.1 % Low 37.0-47.0 [facility] ([place]) Comment on above: Order Comment: QNSQu estionable results Performed By: #### M ORPH, CBC, DIFF #### [address] [address] Hgb 10.3 G/dL Low 12.0-16.0 [facility] ([place]) Comment on above: Order Comment: QNSQu estionable results Performed By: #### M ORPH, CBC, DIFF #### [place] [address] MCH (RBC) [Entitic mass] 31.1 pg Normal 27.0-31.2 [facility] ([place]) Comment on above: Order Comment: QNSQu estionable results Performed By: #### M ORPH, CBC, DIFF #### [place] [address] MCHC 33.1 G/dL Normal 33.0-37.0 [facility] ([place] Comment on above: Order Comment: QNSQu estionable results Performed By: #### M ORPH, CBC, DIFF #### [place] [address] MCV (RBC) [Entitic vol] 94.0 fL Normal 80.0-94.0 [facility] ([place]) Comment on above: Order Comment: QNSQu estionable results Performed By: #### M ORPH, CBC, DIFF #### [place] [address] RBC 3.30 10 6/mcL Low 4.20-5.40 [facility] ([place]) Comment on above: Order Comment: QNSQu estionable results Performed By: #### M ORPH, CBC, DIFF #### [place] [address] WBC 8.4 10 3/mcL Normal 4.6-10.8 [facility] ([place]) Comment on above: Order Comment: QNSQu estionable results Performed By: #### M ORPH, CBC, DIFF #### [place] [address] CT ABDOMEN/PELVIS W/CONTRAST on 02-02-2024 CT ABDOMEN/PELVIS [...] 02/02/2024 5:34:24 PM Ordering Provider: KUMAR Woody [facility] ([place]) LABORATORYOrdered By: SYSTEM SYSTEM on 02-02-2024 Anisocytosis [...] 02-02-2024 Magnesium [Mass/Vol] 2.0 mg/dL Normal 1.8-2.4 [facility] ([place]) Comment on above: Performed By: #### U A #### [facility] [address] [place], [place] [address] No Panel Informationon 02-01 Enterococcus faecalis Enterococcus faecalis [facility] GSAER Gram Positive Cocci in pairs [facility] Microscopic examination of blood, culture Enterococcus faecalis Isolated from aerobe bottle only. Refer to previous culture for susceptibility. [id number] collected 01-31-24 [facility] .GFRon 02-01-2024 GFR Non- 67 ml/min/1.73sqm Normal [facility] ([place]) Comment on above: Result Comment: GFR Population [...] meters Performed By: #### U A #### [place] [address] [place], [place] [address] GFR 82 ml/min/1.73sqm Normal [facility] ([place]) Comment on above: Result Comment: GFR Population [...] meters Performed By: #### U A #### [address] [address] .Manual Diffon 02-01-2024 Neutrophil, Abs Manual 7.1 10 3/mcL High 2.9-6.2 [facility] ([place]) Comment on above: Performed By: #### U A #### [address] [address] Bands 5.0 % Normal 0.0-5.0 [facility] ([place]) Comment on above: Performed By: #### U A #### [address] [address] Basophil %, Manual 1.0 % Normal 0.0-2.5 [facility] ([place]) Comment on above: Performed By: #### U A #### [address] [address] Basophil, Abs Manual 0.1 10 3/mcL Normal 0.0-0.2 [facility] ([place]) Comment on above: Performed By: #### U A #### [address] [address] Eosinophil %, Manual 1.0 % Normal 0.0-7.0 [facility] ([place] Comment on above: Performed By: #### U A #### [address] [address] Eosinophil, Abs Manual 0.1 10 3/mcL Normal 0.0-0.4 [facility] ([place]) Comment on above: Performed By: #### U A #### [address] [address] Lymphocyte %, Manual 9.0 % Low 10.0-50.0 [facility] ([place] Comment on above: Performed By: #### U A #### [address] [address] Lymphocyte, Abs Manual 0.8 10 3/mcL Normal 0.8-3.9 [facility] ([place]) Comment on above: Performed By: #### U A #### [address] [address] Monocyte %, Manual 5.0 % Normal 1.7-13.0 [facility] ([place]) Comment on above: Performed By: #### U A #### [address] [address] Monocyte, Abs Manual 0.4 10 3/mcL Normal 0.2-1.0 [facility] ([place]) Comment on above: Performed By: #### U A #### [address] [address] Neutrophil %, Manual 79.0 % Normal 37.0-80.0 [facility] ([place] Comment on above: Performed By: #### U A #### [address] [address] Nucleated RBC 0.0 /100 WBC Normal [facility] ([place]) Comment on above: Performed By: #### U A #### [address] [address] .Morphon 02-01-2024 Ovalocytes 1+ Normal [facility] ([place]) Comment on above: Performed By: #### U A #### [address] [address] Platelet Estimate Normal Normal [facility] ([place]) Comment on above: Performed By: #### U A #### [address] [address] Toxic Gran 1+ Normal [facility] ([place]) Comment on above: Performed By: #### U A #### [address] [address] Vacuolated Neutrophils 1+ Normal [facility] ([place]) Comment on above: Performed By: #### U A #### [address] [address] CBCon 02-01-2024 Erythrocyte distribution width (RBC) [Ratio] 16.1 % High 11.5-14.5 [facility] ([place]) Comment on above: Performed By: #### U A #### [address] [address] Hematocrit (Bld) [Volume fraction] 31.1 % Low 37.0-47.0 [facility] ([place]) Comment on above: Performed By: #### U A #### [address] [address] Hgb 10.2 G/dL Low 12.0-16.0 [facility] ([place]) Comment on above: Performed By: #### U A #### [address] [address] MCH (RBC) [Entitic mass] 30.9 pg Normal 27.0-31.2 [facility] ([place]) Comment on above: Performed By: #### U A #### [address] [address] MCHC 32.9 G/dL Low 33.0-37.0 [facility] ([place]) Comment on above: Performed By: #### U A #### [address] [address] MCV (RBC) [Entitic vol] 93.9 fL Normal 80.0-94.0 [facility] ([place]) Comment on above: Performed By: #### U A #### [address] [address] Platelet 177 10 3/mcL Normal 130-400 [facility] ([place]) Comment on above: Performed By: #### U A #### [address] [address] Platelet mean volume (Bld) [Entitic vol] 7.9 fL Normal 7.4-10.4 [facility] ([place]) Comment on above: Performed By: #### U A #### [address] [address] RBC 3.31 10 6/mcL Low 4.20-5.40 [facility] ([place]) Comment on above: Performed By: #### U A #### [address] [address] WBC 8.5 10 3/mcL Normal 4.6-10.8 [facility] ([place]) Comment on above: Performed By: #### U A #### [address] [address] CMPon 02-01-2024 Albumin Level 2.5 G/dL Low 3.4-4.8 [facility] ([place]) Comment on above: Performed By: #### U A #### [address] [address] Albumin/Globulin [Mass ratio] 0.6 {ratio} Low 1.1-2.5 [facility] ([place]) Comment on above: Performed By: #### U A #### [address] [address] ALP [Catalytic activity/Vol] 90 U/L Normal 40-135 [facility] ([place]) Comment on above: Performed By: #### U A #### [address] [address] ALT [Catalytic activity/Vol] 41 U/L Normal 14-59 [facility] ([place]) Comment on above: Performed By: #### U A #### [address] [address] AST [Catalytic activity/Vol] 39 U/L Normal 10-40 [facility] ([place]) Comment on above: Performed By: #### U A #### [address] [address] Bili Total 0.6 mg/dL Normal 0.2-1.0 [facility] ([place]) Comment on above: Result Comment: Use of this assay is not recommended for patients undergoing treatment with eltrombopag due to the potential for falsely elevated results. Performed By: #### U A #### [address] [address] BUN/Creatinine Ratio 21 ratio Normal 7-27 [facility] ([place]) Comment on above: Performed By: #### U A #### [address] [address] Calcium [Mass/Vol] 8.2 mg/dL Low 8.4-10.2 [facility] ([place]) Comment on above: Performed By: #### U A #### [address] [address] Chloride [Moles/Vol] 99 mmol/L Normal 98-107 [facility] ([place]) Comment on above: Performed By: #### U A #### [address] [address] CO2 [Moles/Vol] 26 mmol/L Normal 23-31 [facility] ([place]) Comment on above: Performed By: #### U A #### [address] [address] Creatinine [Mass/Vol] 0.81 mg/dL Normal 0.55-1.02 [facility] ([place]) Comment on above: Performed By: #### U A #### [address] [address] Electrolyte Balance 12.0 mEq/L Normal 4.0-15.0 [facility] ([place]) Comment on above: Performed By: #### U A #### [address] [address] Globulin 4.1 G/dL Normal [facility] ([place]) Comment on above: Performed By: #### U A #### [address] [address] Glucose [Mass/Vol] 121 mg/dL High 83-110 [facility] ([place]) Comment on above: Performed By: #### U A #### [address] [address] Potassium [Moles/Vol] 4.3 mmol/L Normal 3.5-5.1 [facility] ([place]) Comment on above: Performed By: #### U A #### [place] [address] [place], [place] [address] Sodium [Moles/Vol] 137 mmol/L Normal 136-145 [facility] ([place]) Comment on above: Performed By: #### U A #### [place] [address] [place], [place] [address] Total Protein 6.6 G/dL Normal 6.4-8.2 [facility] ([place]) Comment on above: Performed By: #### U A #### [place] [address] [place], [place] [address] Urea nitrogen [Mass/Vol] 17 mg/dL Normal 7-18 [facility] ([place]) Comment on above: Performed By: #### U A #### [address] [address] LABORATORYOrdered By: SYSTEM SYSTEM on 02-01-2024 Albumin [...] 02-01-2024 Magnesium [Mass/Vol] 2.0 mg/dL Normal 1.8-2.4 [facility] ([place]) Comment on above: Performed By: #### U A #### [address] [address] No Panel Informationon 01-31 GSAER Gram Positive Cocci in [facility] GSANA Gram Positive Cocci in [facility] Microscopic examination of blood, culture Culture has been received in lab and is no growth to date. Routine cultures are held for 5 days. [facility] .Auto Diffon 01-31-2024 Basophil, Absolute 0.0 10 3/mcL Normal 0.0-0.2 [facility] ([place]) Comment on above: Performed By: #### A MANJULA, CBC, ADIFF, GFR, BMP #### [address] [address] Basophils/100 WBC (Bld) 0.3 % Normal 0.0-2.5 [facility] ([place]) Comment on above: Performed By: #### A MANJULA, CBC, ADIFF, GFR, BMP #### [address] [address] Eosinophil, Absolute 0.0 10 3/mcL Normal 0.0-0.4 [facility] ([place]) Comment on above: Performed By: #### A MANJULA, CBC, ADIFF, GFR, BMP #### [address] [address] Eosinophils/100 WBC (Bld) 1.0 % Normal 0.0-7.0 [facility] ([place]) Comment on above: Performed By: #### A MANJULA, CBC, ADIFF, GFR, BMP #### [address] [address] Lymphocyte, Absolute 1.0 10 3/mcL Normal 0.8-3.9 [facility] ([place]) Comment on above: Performed By: #### A MANJULA, CBC, ADIFF, GFR, BMP #### [address] [address] Lymphocytes/100 WBC (Bld) 13.1 % Normal 10.0-50.0 [facility] ([place]) Comment on above: Performed By: #### A MANJULA, CBC, ADIFF, GFR, BMP #### [address] [address] Monocyte, Absolute 0.6 10 3/mcL Normal 0.2-1.0 [facility] ([place]) Comment on above: Performed By: #### A MANJULA, CBC, ADIFF, GFR, BMP #### [address] [address] Monocytes/100 WBC (Bld) 8.7 % Normal 1.7-13.0 [facility] ([place]) Comment on above: Performed By: #### A MANJULA, CBC, ADIFF, GFR, BMP #### [address] [address] Neutrophils/100 WBC (Bld) 76.7 % Normal 37.0-80.0 [facility] ([place]) Comment on above: Performed By: #### A MANJULA, CBC, ADIFF, GFR, BMP #### [address] [address] .GFRon 01-31-2024 GFR 98 ml/min/1.73sqm Normal [facility] ([place]) Comment on above: Result Comment: [...] A MANJULA, CBC, ADIFF, GFR, BMP #### [address] [address] GFR Non- 81 ml/min/1.73sqm Normal [facility] ([place]) Comment on above: Result Comment: GFR Population [...] A MANJULA, CBC, ADIFF, GFR, BMP #### [address] [address] .NEUABSon 01-31-2024 Neutrophil, Absolute 5.9 10 3/mcL Normal 2.9-6.2 [facility] ([place]) Comment on above: Performed By: #### A MANJULA, CBC, ADIFF, GFR, BMP #### [address] [address] BCIDon 01-31-2024 Acinetobacter camryn-baumanii complex Not detected Normal Not Detected [facility] ([place]) Comment on above: Performed By: #### M ORPH, CBC, DIFF #### [place] [address] Bacteroides fragilis Not detected Normal Not Detected [facility] ([place]) Comment on above: Performed By: #### M ORPH, CBC, DIFF #### [place] [address] BCID Comment See Comment Normal [facility] ([place]) Comment on above: Result Comment: Anti microbial [...] By: #### M ORPH, CBC, DIFF #### [place] [address] Kasandra albicans Not detected Normal Not Detected [facility] ([place]) Comment on above: Performed By: #### M ORPH, CBC, DIFF #### [place] [address] Kasandra auris Not detected Normal Not Detected [facility] ([place]) Comment on above: Performed By: #### M ORPH, CBC, DIFF #### [facility] [address] [place] [address] Kasandra glabrata Not detected Normal Not Detected [facility] ([place]) Comment on above: Performed By: #### M ORPH, CBC, DIFF #### [facility] [address] [place] [address] Kasandra krusei Not detected Normal Not Detected [facility] ([place]) Comment on above: Performed By: #### M ORPH, CBC, DIFF #### [facility] [address] [place] [address] Kasandra parapsilosis Not detected Normal Not Detected [facility] ([place]) Comment on above: Performed By: #### M ORPH, CBC, DIFF #### [facility] [address] [place] [address] Kasandra tropicalis Not detected Normal Not Detected [facility] ([place]) Comment on above: Performed By: #### M ORPH, CBC, DIFF #### [place] [address] Cryptococcus neoformans-gattii Not detected Normal Not Detected [facility] ([place]) Comment on above: Performed By: #### M ORPH, CBC, DIFF #### [place] [address] CTX-M (ESBL) Not Applicable Normal Not Detected [facility] ([place]) Comment on above: Performed By: #### M ORPH, CBC, DIFF #### [place] [address] E. Coli Not detected Normal Not Detected [facility] ([place]) Comment on above: Performed By: #### M ORPH, CBC, DIFF #### [facility] [address] [place], [place] [id number] Enterobacter cloacae Complex Not detected Normal Not Detected [facility] ([place]) Comment on above: Performed By: #### M ORPH, CBC, DIFF #### [facility] [address] [place] [address] Enterobacterales Not detected Normal Not Detected [facility] ([place]) Comment on above: Performed By: #### M ORPH, CBC, DIFF #### [facility] [address] [place] [address] Enterococcus faecalis Detected Abnormal Not Detected [facility] ([place]) Comment on above: Performed By: #### M ORPH, CBC, DIFF #### [facility] [address] [place] [address] Enterococcus faecium Not detected Normal Not Detected [facility] ([place]) Comment on above: Performed By: #### M ORPH, CBC, DIFF #### [facility] [address] [place] [address] Haemophilus influenzae Not detected Normal Not Detected [facility] ([place]) Comment on above: Performed By: #### M ORPH, CBC, DIFF #### [facility] [address] [place] [address] IMP (Carbapenemase) Not Applicable Normal Not Detected [facility] ([place]) Comment on above: Performed By: #### M ORPH, CBC, DIFF #### [facility] [address] [place], [place] [id number] Klebsiella aerogenes Not detected Normal Not Detected [facility] ([place]) Comment on above: Performed By: #### M ORPH, CBC, DIFF #### [facility] [address] [place] [address] Klebsiella oxytoca Not detected Normal Not Detected [facility] ([place]) Comment on above: Performed By: #### M ORPH, CBC, DIFF #### [facility] [address] [place] [address] Klebsiella pneumoniae group Not detected Normal Not Detected [facility] ([place]) Comment on above: Performed By: #### M ORPH, CBC, DIFF #### [facility] [address] [place] [address] KPC (Carbapenemase) Not Applicable Normal Not Detected [facility] ([place]) Comment on above: Performed By: #### M ORPH, CBC, DIFF #### [facility] [address] [place] [address] Listeria monocytogenes Not detected Normal Not Detected [facility] ([place]) Comment on above: Performed By: #### M ORPH, CBC, DIFF #### [facility] [address] [place] [address] MCR-1 (Colistin Resistance) Not Applicable Normal Not Detected [facility] ([place]) Comment on above: Performed By: #### M ORPH, CBC, DIFF #### [place] [address] Mec A/C Not Applicable Normal Not Detected [facility] ([place] Comment on above: Performed By: #### M ORPH, CBC, DIFF #### [place] [address] Mec A/C-MREJ (MRSA) Not Applicable Normal Not Detected [facility] ([place] Comment on above: Performed By: #### M ORPH, CBC, DIFF #### [place] [address] NDM (Carbapenemase) Not Applicable Normal Not Detected [facility] ([place] Comment on above: Performed By: #### M ORPH, CBC, DIFF #### [place] [address] Neisseria meningitidis (Encapsalated) Not detected Normal Not Detected [facility] ([place] Comment on above: Performed By: #### M ORPH, CBC, DIFF #### [place] [address] OXA-48 like (Carbapenemase) Not Applicable Normal Not Detected [facility] ([place] Comment on above: Performed By: #### M ORPH, CBC, DIFF #### [place] [address] Proteus Not detected Normal Not Detected [facility] ([place]) Comment on above: Performed By: #### M ORPH, CBC, DIFF #### [place] [address] Pseudomonas aeruginosa Not detected Normal Not Detected [facility] ([place]) Comment on above: Performed By: #### M ORPH, CBC, DIFF #### [place] [address] S. agalactiae Org specific cx Ql (Vag fld) Not detected Normal Not Detected [facility] ([place]) Comment on above: Performed By: #### M ORPH, CBC, DIFF #### [address] [address] Salmonella species Not detected Normal Not Detected [facility] ([place]) Comment on above: Performed By: #### M ORPH, CBC, DIFF #### [address] [address] Serratia marcescens Not detected Normal Not Detected [facility] ([place]) Comment on above: Performed By: #### M ORPH, CBC, DIFF #### [address] [address] Staphylococcus Not detected Normal Not Detected [facility] ([place]) Comment on above: Performed By: #### M ORPH, CBC, DIFF #### [place] [phone] Staphylococcus aureus Not detected Normal Not Detected [facility] ([place]) Comment on above: Result Comment: If S taphylococcus aureus is "Detected", an Infectious Disease physician consult is required on identification. Performed By: #### M ORPH, CBC, DIFF #### [place] [address] Staphylococcus epidermidis Not detected Normal Not Detected [facility] ([place]) Comment on above: Performed By: #### M ORPH, CBC, DIFF #### [address] [address] Staphylococcus lugdunensis Not detected Normal Not Detected [facility] ([place]) Comment on above: Performed By: #### M ORPH, CBC, DIFF #### [place] [phone] Stenotrophomonas maltophilia Not detected Normal Not Detected [facility] ([place]) Comment on above: Performed By: #### M ORPH, CBC, DIFF #### [address] [address] Streptococcus Not detected Normal Not Detected [facility] ([place]) Comment on above: Performed By: #### M ORPH, CBC, DIFF #### [address] [address] Streptococcus pneumoniae Not detected Normal Not Detected [facility] ([place]) Comment on above: Performed By: #### M ORPH, CBC, DIFF #### [address] [address] Streptococcus pyogenes Not detected Normal Not Detected [facility] ([place] Comment on above: Performed By: #### M ORPH, CBC, DIFF #### [address] [address] Van A/B Not detected Normal Not Detected [facility] ([place] Comment on above: Performed By: #### M ORPH, CBC, DIFF #### [address] [address] VIM (Carbapenemase) Not Applicable Normal Not Detected [facility] ([place]) Comment on above: Performed By: #### M ORPH, CBC, DIFF #### [address] [address] CBCon 01-31-2024 Erythrocyte distribution width (RBC) [Ratio] 14.5 % Normal 11.5-14.5 [facility] ([place]) Comment on above: Performed By: #### A MANJULA, CBC, ADIFF, GFR, BMP #### [address] [address] Hematocrit (Bld) [Volume fraction] 30.6 % Low 37.0-47.0 [facility] ([place]) Comment on above: Performed By: #### A MANJULA, CBC, ADIFF, GFR, BMP #### [address] [address] Hgb 9.9 G/dL Low 12.0-16.0 [facility] ([place]) Comment on above: Performed By: #### A MANJULA, CBC, ADIFF, GFR, BMP #### [address] [address] MCH (RBC) [Entitic mass] 30.6 pg Normal 27.0-31.2 [facility] ([place]) Comment on above: Performed By: #### A MANJULA, CBC, ADIFF, GFR, BMP #### [address] [address] MCHC 32.6 G/dL Low 33.0-37.0 [facility] ([place]) Comment on above: Performed By: #### A MANJULA, CBC, ADIFF, GFR, BMP #### [address] [address] MCV (RBC) [Entitic vol] 93.6 fL Normal 80.0-94.0 [facility] ([place]) Comment on above: Performed By: #### A MANJULA, CBC, ADIFF, GFR, BMP #### [address] [address] Platelet 229 10 3/mcL Normal 130-400 [facility] ([place]) Comment on above: Performed By: #### A MANJULA, CBC, ADIFF, GFR, BMP #### [address] [address] Platelet mean volume (Bld) [Entitic vol] 7.6 fL Normal 7.4-10.4 [facility] ([place]) Comment on above: Performed By: #### A MANJULA, CBC, ADIFF, GFR, BMP #### [address] [address] RBC 3.27 10 6/mcL Low 4.20-5.40 [facility] ([place]) Comment on above: Performed By: #### A MANJULA, CBC, ADIFF, GFR, BMP #### [address] [address] WBC 7.6 10 3/mcL Normal 4.6-10.8 [facility] ([place]) Comment on above: Performed By: #### A MANJULA, CBC, ADIFF, GFR, BMP #### [address] [address] CMPon 01-31-2024 Albumin Level 2.4 G/dL Low 3.4-4.8 [facility] ([place]) Comment on above: Performed By: #### A MANJULA, CBC, ADIFF, GFR, BMP #### [address] [address] Albumin/Globulin [Mass ratio] 0.6 {ratio} Low 1.1-2.5 [facility] ([place]) Comment on above: Performed By: #### A MANJULA, CBC, ADIFF, GFR, BMP #### [address] [address] ALP [Catalytic activity/Vol] 88 U/L Normal 40-135 [facility] ([place]) Comment on above: Performed By: #### A MANJULA, CBC, ADIFF, GFR, BMP #### [address] [address] ALT [Catalytic activity/Vol] 36 U/L Normal 14-59 [facility] ([place]) Comment on above: Performed By: #### A MANJULA, CBC, ADIFF, GFR, BMP #### [address] [address] AST [Catalytic activity/Vol] 24 U/L Normal 10-40 [facility] ([place]) Comment on above: Performed By: #### A MANJULA, CBC, ADIFF, GFR, BMP #### [address] [address] Bili Total 0.6 mg/dL Normal 0.2-1.0 [facility] ([place]) Comment on above: Result Comment: Use of this assay is not recommended for patients undergoing treatment with eltrombopag due to the potential for falsely elevated results. Performed By: #### A MANJULA, CBC, ADIFF, GFR, BMP #### [address] [address] BUN/Creatinine Ratio 17 ratio Normal 7-27 [facility] ([place]) Comment on above: Performed By: #### A MANJULA, CBC, ADIFF, GFR, BMP #### [address] [address] Calcium [Mass/Vol] 8.2 mg/dL Low 8.4-10.2 [facility] ([place]) Comment on above: Performed By: #### A MANJULA, CBC, ADIFF, GFR, BMP #### [address] [address] Chloride [Moles/Vol] 103 mmol/L Normal 98-107 [facility] ([place]) Comment on above: Performed By: #### A MANJULA, CBC, ADIFF, GFR, BMP #### [address] [address] CO2 [Moles/Vol] 31 mmol/L Normal 23-31 [facility] ([place]) Comment on above: Performed By: #### A MANJULA, CBC, ADIFF, GFR, BMP #### [address] [address] Creatinine [Mass/Vol] 0.69 mg/dL Normal 0.55-1.02 [facility] ([place]) Comment on above: Performed By: #### A MANJULA, CBC, ADIFF, GFR, BMP #### [address] [address] Electrolyte Balance 6.0 mEq/L Normal 4.0-15.0 [facility] ([place]) Comment on above: Performed By: #### A MANJULA, CBC, ADIFF, GFR, BMP #### [place] [phone] Globulin 4.1 G/dL Normal [facility] ([place]) Comment on above: Performed By: #### A MANJULA, CBC, ADIFF, GFR, BMP #### [address] [address] Glucose [Mass/Vol] 112 mg/dL High 83-110 [facility] ([place]) Comment on above: Performed By: #### A MANJULA, CBC, ADIFF, GFR, BMP #### [address] [address] Potassium [Moles/Vol] 4.3 mmol/L Normal 3.5-5.1 [facility] ([place]) Comment on above: Performed By: #### A MANJULA, CBC, ADIFF, GFR, BMP #### [place] [phone] Sodium [Moles/Vol] 140 mmol/L Normal 136-145 [facility] ([place]) Comment on above: Performed By: #### A MANJULA, CBC, ADIFF, GFR, BMP #### [place] [id number] Total Protein 6.5 G/dL Normal 6.4-8.2 [facility] ([place]) Comment on above: Performed By: #### A MANJULA, CBC, ADIFF, GFR, BMP #### [place] [address] Urea nitrogen [Mass/Vol] 12 mg/dL Normal 7-18 [facility] ([place]) Comment on above: Performed By: #### A MANJULA, CBC, ADIFF, GFR, BMP #### [place] [address] CVFLURVon 01-31-2024 FLU A PCR Negative Normal Negative [facility] ([place]) Comment on above: Performed By: #### A MANJULA, CBC, ADIFF, GFR, BMP #### [place] [address] FLU B PCR Negative Normal Negative [facility] ([place]) Comment on above: Performed By: #### A MANJULA, CBC, ADIFF, GFR, BMP #### [place] [address] RSV PCR Negative Normal Negative [facility] ([place]) Comment on above: Performed By: #### A MANJULA, CBC, ADIFF, GFR, BMP #### [place] [address] SARS-CoV-2 (COVID-19) RNA FAUSTO+probe Ql (Unsp spec) Negative Normal Negative [facility] ([place]) Comment on above: Result Comment: Resu lts [...] CBC, ADIFF, GFR, BMP #### [place] [id number] [place], [place] [address] LABORATORYOrdered By: SYSTEM SYSTEM on 01-31-2024 Albumin [...] Lactic Acid Lvl 1.3 mmol/L Normal 0.4-2.0 [facility] ([place]) Comment on above: Performed By: #### A MANJULA, CBC, ADIFF, GFR, BMP #### [address] [place], [place] [address] No Panel Informationon 01-30 GSAER Gram Positive Cocci in pairs [facility] GSANA Gram Positive Cocci in pairs [facility] Microscopic examination of blood, culture Enterococcus faecalis Isolated from aerobe and anaerobe bottles. ASHLEIGH to follow [facility] Microscopic examination of blood, culture Enterococcus faecalis Isolated from aerobe and anaerobe bottles. Final report to follow. [facility] XR CHEST 2 VIEWSon XR CHEST [...] Date: 01/31/2024 12:50:22 AM Ordering Provider: MALGORZATA HERNDON [facility] ([place]) LABORATORYOrdered By: Beckie Alvarez on 01-30-2024 Appearance [...] SS UAon 01-30-2024 Color (U) Yellow Normal [facility] ([place]) Comment on above: Performed By: #### A MANJULA, CBC, ADIFF, GFR, BMP #### [address] [address] Glucose (U) [Mass/Vol] Negative Normal Negative [facility] ([place]) Comment on above: Performed By: #### A MANJULA, CBC, ADIFF, GFR, BMP #### [address] [address] Ketones Ql (U) Negative Normal Negative [facility] ([place]) Comment on above: Performed By: #### A MANJLUA, CBC, ADIFF, GFR, BMP #### [address] [address] UA Appear Clear Normal Clear [facility] ([place]) Comment on above: Performed By: #### A MANJULA, CBC, ADIFF, GFR, BMP #### [address] [address] UA Blood Negative Normal Negative [facility] ([place]) Comment on above: Performed By: #### A MANJULA, CBC, ADIFF, GFR, BMP #### [address] [address] UA Leuk Est Negative Normal Negative [facility] ([place]) Comment on above: Performed By: #### A MANJULA, CBC, ADIFF, GFR, BMP #### [address] [address] UA Nitrite Negative Normal Negative [facility] ([place]) Comment on above: Performed By: #### A MANJULA, CBC, ADIFF, GFR, BMP #### [place] [address] UA pH 7.0 Normal 5.0 - 8.0 [facility] ([place]) Comment on above: Performed By: #### A MANJULA, CBC, ADIFF, GFR, BMP #### [place] [address] UA Protein Negative Normal Negative [facility] ([place]) Comment on above: Performed By: #### A MANJULA, CBC, ADIFF, GFR, BMP #### [place] [address] UA Spec Grav 1.020 Normal 1.015-1.02 5 [facility] ([place]) Comment on above: Performed By: #### A MANJULA, CBC, ADIFF, GFR, BMP #### [place] [address] UA Specimen Type Straight Cath Normal [facility] ([place]) Comment on above: Performed By: #### A MANJULA, CBC, ADIFF, GFR, BMP #### [place] [address] UA Urobilinogen 2.0 E.U./dL Abnormal 0.2-1.0 [facility] ([place]) Comment on above: Performed By: #### A MANJULA, CBC, ADIFF, GFR, BMP #### [place] [address] Urobilinogen (U) [Mass/Vol] Negative Normal Negative [facility] ([place]) Comment on above: Performed By: #### A MANJULA, CBC, ADIFF, GFR, BMP #### [address] [address] .Auto Diffon 01-25-2024 Basophil, Absolute 0.0 10 3/mcL Normal 0.0-0.2 [facility] ([place]) Comment on above: Performed By: #### A MANJULA, CBC, ADIFF, GFR, BMP #### [address] [address] Basophils/100 WBC (Bld) 0.9 % Normal 0.0-2.5 [facility] ([place]) Comment on above: Performed By: #### A MANJULA, CBC, ADIFF, GFR, BMP #### [address] [address] Eosinophil, Absolute 0.0 10 3/mcL Normal 0.0-0.4 [facility] ([place]) Comment on above: Performed By: #### A MANJULA, CBC, ADIFF, GFR, BMP #### [address] [address] Eosinophils/100 WBC (Bld) 0.5 % Normal 0.0-7.0 [facility] ([place]) Comment on above: Performed By: #### A MANJULA, CBC, ADIFF, GFR, BMP #### [address] [address] Lymphocyte, Absolute 0.9 10 3/mcL Normal 0.8-3.9 [facility] ([place]) Comment on above: Performed By: #### A MANJULA, CBC, ADIFF, GFR, BMP #### [address] [address] Lymphocytes/100 WBC (Bld) 16.2 % Normal 10.0-50.0 [facility] ([place]) Comment on above: Performed By: #### A MANJULA, CBC, ADIFF, GFR, BMP #### [address] [address] Monocyte, Absolute 0.6 10 3/mcL Normal 0.2-1.0 [facility] ([place]) Comment on above: Performed By: #### A MANJULA, CBC, ADIFF, GFR, BMP #### [address] [address] Monocytes/100 WBC (Bld) 11.9 % Normal 1.7-13.0 [facility] ([place]) Comment on above: Performed By: #### A MANJULA, CBC, ADIFF, GFR, BMP #### [address] [address] Neutrophils/100 WBC (Bld) 70.5 % Normal 37.0-80.0 [facility] ([place]) Comment on above: Performed By: #### A MANJULA, CBC, ADIFF, GFR, BMP #### [address] [address] .GFRon 01-25-2024 GFR 92 ml/min/1.73sqm Normal [facility] ([place]) Comment on above: Result Comment: GFR Population [...] A MANJULA, CBC, ADIFF, GFR, BMP #### [address] [address] GFR Non- 76 ml/min/1.73sqm Normal [facility] ([place]) Comment on above: Result Comment: GFR Population [...] A MANJULA, CBC, ADIFF, GFR, BMP #### [address] [address] .NEUABSon 01-25-2024 Neutrophil, Absolute 3.8 10 3/mcL Normal 2.9-6.2 [facility] ([place]) Comment on above: Performed By: #### A MANJULA, CBC, ADIFF, GFR, BMP #### [address] [address] BMPon 01-25-2024 BUN/Creatinine Ratio 12 ratio Normal 7-27 [facility] ([place]) Comment on above: Performed By: #### A MANJULA, CBC, ADIFF, GFR, BMP #### [address] [address] Calcium [Mass/Vol] 8.2 mg/dL Low 8.4-10.2 [facility] ([place]) Comment on above: Performed By: #### A MANJULA, CBC, ADIFF, GFR, BMP #### [address] [address] Chloride [Moles/Vol] 100 mmol/L Normal 98-107 [facility] ([place]) Comment on above: Performed By: #### A MANJULA, CBC, ADIFF, GFR, BMP #### [address] [address] CO2 [Moles/Vol] 29 mmol/L Normal 23-31 [facility] ([place]) Comment on above: Performed By: #### A MANJULA, CBC, ADIFF, GFR, BMP #### [address] [address] Creatinine [Mass/Vol] 0.73 mg/dL Normal 0.55-1.02 [facility] ([place]) Comment on above: Performed By: #### A MANJULA, CBC, ADIFF, GFR, BMP #### [address] [address] Electrolyte Balance 6.0 mEq/L Normal 4.0-15.0 [facility] ([place]) Comment on above: Performed By: #### A MANJULA, CBC, ADIFF, GFR, BMP #### [address] [address] Glucose [Mass/Vol] 111 mg/dL High 83-110 [facility] ([place]) Comment on above: Performed By: #### A MANJULA, CBC, ADIFF, GFR, BMP #### [address] [address] Potassium [Moles/Vol] 4.0 mmol/L Normal 3.5-5.1 [facility] ([place]) Comment on above: Performed By: #### A MANJULA, CBC, ADIFF, GFR, BMP #### [address] [address] Sodium [Moles/Vol] 135 mmol/L Low 136-145 [facility] ([place]) Comment on above: Performed By: #### A MANJULA, CBC, ADIFF, GFR, BMP #### [address] [address] Urea nitrogen [Mass/Vol] 9 mg/dL Normal 7-18 [facility] ([place]) Comment on above: Performed By: #### A MANJULA, CBC, ADIFF, GFR, BMP #### [address] [address] CBCon 01-25-2024 Erythrocyte distribution width (RBC) [Ratio] 15.5 % High 11.5-14.5 [facility] ([place]) Comment on above: Performed By: #### A MANJULA, CBC, ADIFF, GFR, BMP #### [address] [address] Hematocrit (Bld) [Volume fraction] 31.8 % Low 37.0-47.0 [facility] ([place]) Comment on above: Performed By: #### A MANJULA, CBC, ADIFF, GFR, BMP #### [address] [address] Hgb 10.3 G/dL Low 12.0-16.0 [facility] ([place]) Comment on above: Performed By: #### A MAJNULA, CBC, ADIFF, GFR, BMP #### [address] [address] MCH (RBC) [Entitic mass] 30.5 pg Normal 27.0-31.2 [facility] ([place]) Comment on above: Performed By: #### A MANJULA, CBC, ADIFF, GFR, BMP #### [address] [address] MCHC 32.4 G/dL Low 33.0-37.0 [facility] ([place]) Comment on above: Performed By: #### A MANJULA, CBC, ADIFF, GFR, BMP #### [address] [address] MCV (RBC) [Entitic vol] 94.1 fL High 80.0-94.0 [facility] ([place]) Comment on above: Performed By: #### A MANJULA, CBC, ADIFF, GFR, BMP #### [address] [address] Platelet 255 10 3/mcL Normal 130-400 [facility] ([place]) Comment on above: Performed By: #### A MANJULA, CBC, ADIFF, GFR, BMP #### [address] [address] Platelet mean volume (Bld) [Entitic vol] 7.6 fL Normal 7.4-10.4 [facility] ([place]) Comment on above: Performed By: #### A MANJULA, CBC, ADIFF, GFR, BMP #### [address] [address] RBC 3.38 10 6/mcL Low 4.20-5.40 [facility] ([place]) Comment on above: Performed By: #### A MANJULA, CBC, ADIFF, GFR, BMP #### [place] [facility] [address] [place], [place] [address] WBC 5.4 10 3/mcL Normal 4.6-10.8 [facility] ([place]) Comment on above: Performed By: #### A MANJULA, CBC, ADIFF, GFR, BMP #### [facility] [address] [place], [place] [address] LABORATORYOrdered By: SYSTEM SYSTEM on 01-25-2024 Basophil, [...] 4.6 - 10.8 10^3/mcL AO Workflow SS Bacteria Ur Culton 4 Bacteria identified Cx Nom (U) ORGANISM ID: 1 10,000 -<50,000 CFU/ml Normal urogenital raghu Normal [facility] Comment on above: Performed By: #### 6 30-4 ####[facility] LABIA [id number] [address] [place] CNPNon 01-11-[address] [facility] CNPNon 01-07-[address] [facility] CNPNon 01-06-[address] [facility] Bacteria Ur Culton 4 Bacteria identified Cx Nom (U) Abnormal [facility] Comment on above: Performed By: #### 6 30-4 ####[facility] LABIA [id number] [address] [place] CNPNon 12-16-[address] [facility] CNPNon 12-15-[address] [facility] CNPNon 12-14-[address] [facility] Bacteria Ur Culton Bacteria identified Cx Nom (U) Abnormal [facility] Comment on above: Performed By: #### 6 30-4 ####[facility] LABCLIA [id number] [place] [address] [place] CNOVon 12-13-[address] [facility] CNPNon 12-13-[address] [facility] URINALYSIS, REFLEX MICROSCOP ICon 12-13-2023 BACTERIA UL >[address] [facility] Comment on above: Order Comment: Speci men Type: URINE SPECIMENOrdering Facility: [facility] Address: [address] [place] [address] Performed By: #### L [id number] ####[facility] LABCLIA [id number] [place] [address] [place] Bilirubin Ql (U) Negative Normal Negative [facility] Comment on above: Order Comment: Speci men Type: URINE SPECIMENOrdering Facility: [facility] Address: [address] [place] [address] Performed By: #### L [id number] ####[facility] LABCLIA [id number] [place] [address] [place] Clarity (Unsp spec) Cloudy Abnormal Clear [facility] Comment on above: Order Comment: Speci men Type: URINE SPECIMENOrdering Facility: [facility] Address: [address] [place] [address] Performed By: #### L [id number] ####[facility] LABCLIA [id number] [place] [address] [place] Color (U) Yellow Normal Yellow [facility] Comment on above: Order Comment: Speci men Type: URINE SPECIMENOrdering Facility: [facility] Address: [address] [place] [address] Performed By: #### L [id number] ####[facility] LABCLIA [id number] [place] [address] [place] Epithelial cells LM.HPF (Urine sed) [#/Area] Moderate Normal [facility] Comment on above: Order Comment: Speci men Type: URINE SPECIMENOrdering Facility: [facility] Address: [address] [place] [address] Performed By: #### L [id number] ####[facility] LABCLIA [id number] [place] [address] [place] Glucose Test strip (U) [Mass/Vol] Negative Normal Negative [facility] Comment on above: Order Comment: Speci men Type: URINE SPECIMENOrdering Facility: [facility] Address: [address] [place] [address] Performed By: #### L [id number] ####[facility] LABIA [id number] [place] [address] [place] Hemoglobin Ql (U) Trace Abnormal Negative [facility] Comment on above: Order Comment: Speci men Type: URINE SPECIMENOrdering Facility: [facility] Address: [address] [place] [address] Performed By: #### L [id number] ####[facility] LABIA [id number] [place] [address] [place] Hyaline casts (Urine sed) [#/Area] 1-3 /LPF Abnormal 0 /LPF [facility] Comment on above: Order Comment: Speci men Type: URINE SPECIMENOrdering Facility: [facility] Address: [address] [place] [address] Performed By: #### L [id number] ####[facility] LABCLIA [id number] [place] [address] [place] Ketones Ql (U) Negative Normal Negative [facility] Comment on above: Order Comment: Speci men Type: URINE SPECIMENOrdering Facility: [facility] Address: [address] [place] [address] Performed By: #### L [id number] ####[facility] LABCLIA [id number] [place] [address] [place] Leukocyte esterase Test strip Ql (U) 3+ Abnormal Negative [facility] Comment on above: Order Comment: Speci men Type: URINE SPECIMENOrdering Facility: [facility] Address: [address] [place] [address] Performed By: #### L [id number] ####[facility] LABCLIA [id number] [place] [address] [place] Nitrite Ql (U) Negative Normal Negative [facility] Comment on above: Order Comment: Speci men Type: URINE SPECIMENOrdering Facility: [facility] Address: [address] [place] [address] Performed By: #### L [id number] ####[facility] LABCLIA [id number] [place] [address] [place] pH (U) 7.5 [pH] Normal <8.5 [facility] Comment on above: Order Comment: Speci men Type: URINE SPECIMENOrdering Facility: [facility] Address: [address] [place] [address] Performed By: #### L [id number] ####[facility] LABIA [id number] [place] [address] [place] Protein (U) [Mass/Vol] Trace Abnormal Negative Cl [facility] Comment on above: Order Comment: Speci men Type: URINE SPECIMENOrdering Facility: [facility] Address: [address] [place] [address] Performed By: #### L [id number] ####[facility] LABCLIA [id number] [place] [address] [place] RBC LM.HPF (Urine sed) [#/Area] /[HPF] Abnormal 0-2 /HPF [facility] Comment on above: Order Comment: Speci men Type: URINE SPECIMENOrdering Facility: [facility] Address: [address] [place] [address] Performed By: #### L [id number] ####[facility] LABIA [id number] [place] [address] [place] Specific gravity (U) [Rel density] 1.008 Normal 1.005-1.[address] [facility] Comment on above: Order Comment: Speci men Type: URINE SPECIMENOrdering Facility: [facility] Address: [address] [place] [address] Performed By: #### L [id number] ####[facility] [id number] [place] [address] [place] Urobilinogen Ql (U) 0.2 EU/dL Normal 0.2-1.0 EU/dL [facility] Comment on above: Order Comment: Speci men Type: URINE SPECIMENOrdering Facility: [facility] Address: [address] [place] [address] Performed By: #### L [id number] ####[facility] [id number] [place] [address] [place] WBC LM.HPF (Urine sed) [#/Area] /[HPF] Abnormal 0-5 /HPF [facility] Comment on above: Order Comment: Speci men Type: URINE SPECIMENOrdering Facility: [facility] Address: [address] [place] [address] Performed By: #### L [id number] ####[facility] LABIA [id number] [place] [address] [place] Yeast.budding LM.HPF (Urine sed) [#/Area] Present Abnormal None Seen [facility] Comment on above: Order Comment: Speci men Type: URINE SPECIMENOrdering Facility: [facility] Address: [address] [place] [address] Performed By: #### L [id number] ####[facility] LABCLIA [id number] [place] [address] [place] .GFRon 12-09-2023 GFR 72 ml/min/1.73sqm Normal [facility] ([place]) Comment on above: Result Comment: GFR Population [...] A MANJULA, CBC, ADIFF, GFR, BMP #### [address] [address] GFR Non- 60 ml/min/1.73sqm Normal [facility] ([place]) Comment on above: Result Comment: GFR Population [...] A MANJULA, CBC, ADIFF, GFR, BMP #### [address] [address] BMPon 12-09-2023 BUN/Creatinine Ratio 19 ratio Normal 7-27 [facility] ([place]) Comment on above: Performed By: #### A MANJULA, CBC, ADIFF, GFR, BMP #### [address] [address] Calcium [Mass/Vol] 8.5 mg/dL Normal 8.4-10.2 [facility] ([place]) Comment on above: Performed By: #### A MANJULA, CBC, ADIFF, GFR, BMP #### [address] [address] Chloride [Moles/Vol] 103 mmol/L Normal 98-107 [facility] ([place]) Comment on above: Performed By: #### A MANJULA, CBC, ADIFF, GFR, BMP #### [address] [address] CO2 [Moles/Vol] 31 mmol/L Normal 23-31 [facility] ([place]) Comment on above: Performed By: #### A MANJULA, CBC, ADIFF, GFR, BMP #### [address] [address] Creatinine [Mass/Vol] 0.90 mg/dL Normal 0.55-1.02 [facility] ([place]) Comment on above: Performed By: #### A MANJULA, CBC, ADIFF, GFR, BMP #### [address] [address] Electrolyte Balance 9.0 mEq/L Normal 4.0-15.0 [facility] ([place]) Comment on above: Performed By: #### A MANJULA, CBC, ADIFF, GFR, BMP #### [address] [address] Glucose [Mass/Vol] 98 mg/dL Normal 83-110 [facility] ([place]) Comment on above: Performed By: #### A MANJULA, CBC, ADIFF, GFR, BMP #### [address] [address] Potassium [Moles/Vol] 4.1 mmol/L Normal 3.5-5.1 [facility] ([place]) Comment on above: Performed By: #### A MANJULA, CBC, ADIFF, GFR, BMP #### [place] [address] [place], [place] [address] Sodium [Moles/Vol] 143 mmol/L Normal 136-145 [facility] ([place]) Comment on above: Performed By: #### A MANJULA, CBC, ADIFF, GFR, BMP #### [place] [address] [place], [place] [address] Urea nitrogen [Mass/Vol] 17 mg/dL Normal 7-18 [facility] ([place]) Comment on above: Performed By: #### A MANJULA, CBC, ADIFF, GFR, BMP #### [place] [address] [place], [place] [address] LABORATORYOrdered By: SYSTEM SYSTEM on 12-09-2023 Calcium [...] Basophil, Absolute 0.0 10 3/mcL Normal 0.0-0.2 [facility] ([place]) Comment on above: Performed By: #### A MANJULA, CBC, ADIFF, GFR, BMP #### [address] [address] Basophils/100 WBC (Bld) 0.5 % Normal 0.0-2.5 [facility] ([place]) Comment on above: Performed By: #### A MANJULA, CBC, ADIFF, GFR, BMP #### [address] [address] Eosinophil, Absolute 0.1 10 3/mcL Normal 0.0-0.4 [facility] ([place]) Comment on above: Performed By: #### A MANJULA, CBC, ADIFF, GFR, BMP #### [address] [address] Eosinophils/100 WBC (Bld) 2.3 % Normal 0.0-7.0 [facility] ([place]) Comment on above: Performed By: #### A MANJULA, CBC, ADIFF, GFR, BMP #### [address] [address] Lymphocyte, Absolute 0.9 10 3/mcL Normal 0.8-3.9 [facility] ([place]) Comment on above: Performed By: #### A MANJULA, CBC, ADIFF, GFR, BMP #### [address] [address] Lymphocytes/100 WBC (Bld) 18.4 % Normal 10.0-50.0 [facility] ([place]) Comment on above: Performed By: #### A MANJULA, CBC, ADIFF, GFR, BMP #### [address] [address] Monocyte, Absolute 0.3 10 3/mcL Normal 0.2-1.0 [facility] ([place]) Comment on above: Performed By: #### A MANJULA, CBC, ADIFF, GFR, BMP #### [address] [address] Monocytes/100 WBC (Bld) 5.9 % Normal 1.7-13.0 [facility] ([place]) Comment on above: Performed By: #### A MANJULA, CBC, ADIFF, GFR, BMP #### [address] [address] Neutrophils/100 WBC (Bld) 72.9 % Normal 37.0-80.0 [facility] ([place]) Comment on above: Performed By: #### A MANJULA, CBC, ADIFF, GFR, BMP #### [address] [address] .GFRon 12-03-2023 GFR Non- 64 ml/min/1.73sqm Normal [facility] ([place]) Comment on above: Result Comment: GFR Population [...] meters Performed By: #### U A #### [address] [address] GFR 77 ml/min/1.73sqm Normal [facility] ([place]) Comment on above: Result Comment: GFR Population [...] meters Performed By: #### U A #### [address] [address] .NEUABSon 12-03-2023 Neutrophil, Absolute 3.5 10 3/mcL Normal 2.9-6.2 [facility] ([place]) Comment on above: Performed By: #### A MANJULA, CBC, ADIFF, GFR, BMP #### [address] [address] BMPon 12-03-2023 BUN/Creatinine Ratio 14 ratio Normal 7-27 [facility] ([place]) Comment on above: Performed By: #### A MANJULA, CBC, ADIFF, GFR, BMP #### [address] [address] Calcium [Mass/Vol] 8.5 mg/dL Normal 8.4-10.2 [facility] ([place]) Comment on above: Performed By: #### A MANJULA, CBC, ADIFF, GFR, BMP #### [address] [address] Chloride [Moles/Vol] 102 mmol/L Normal 98-107 [facility] ([place]) Comment on above: Performed By: #### A MANJULA, CBC, ADIFF, GFR, BMP #### [address] [address] CO2 [Moles/Vol] 31 mmol/L Normal 23-31 [facility] ([place]) Comment on above: Performed By: #### A MANJULA, CBC, ADIFF, GFR, BMP #### [address] [address] Creatinine [Mass/Vol] 0.85 mg/dL Normal 0.55-1.02 [facility] ([place]) Comment on above: Performed By: #### A MANJULA, CBC, ADIFF, GFR, BMP #### [address] [address] Electrolyte Balance 8.0 mEq/L Normal 4.0-15.0 [facility] ([place]) Comment on above: Performed By: #### A MANJULA, CBC, ADIFF, GFR, BMP #### [address] [address] Glucose [Mass/Vol] 113 mg/dL High 83-110 [facility] ([place]) Comment on above: Performed By: #### A MANJULA, CBC, ADIFF, GFR, BMP #### [address] [address] Potassium [Moles/Vol] 3.8 mmol/L Normal 3.5-5.1 [facility] ([place]) Comment on above: Performed By: #### A MANJULA, CBC, ADIFF, GFR, BMP #### [place] [address] Sodium [Moles/Vol] 141 mmol/L Normal 136-145 [facility] ([place]) Comment on above: Performed By: #### A MANJULA, CBC, ADIFF, GFR, BMP #### [address] [address] Urea nitrogen [Mass/Vol] 12 mg/dL Normal 7-18 [facility] ([place]) Comment on above: Performed By: #### A MANJULA, CBC, ADIFF, GFR, BMP #### [address] [address] CBCon 12-03-2023 Erythrocyte distribution width (RBC) [Ratio] 13.1 % Normal 11.5-14.5 [facility] ([place]) Comment on above: Performed By: #### A MANJULA, CBC, ADIFF, GFR, BMP #### [address] [address] Hematocrit (Bld) [Volume fraction] 31.1 % Low 37.0-47.0 [facility] ([place]) Comment on above: Performed By: #### A MANJULA, CBC, ADIFF, GFR, BMP #### [address] [address] Hgb 10.7 G/dL Low 12.0-16.0 [facility] ([place]) Comment on above: Performed By: #### A MANJULA, CBC, ADIFF, GFR, BMP #### [address] [address] MCH (RBC) [Entitic mass] 32.5 pg High 27.0-31.2 [facility] ([place]) Comment on above: Performed By: #### A MANJULA, CBC, ADIFF, GFR, BMP #### [place] [id number] MCHC 34.5 G/dL Normal 33.0-37.0 [facility] ([place]) Comment on above: Performed By: #### A MANJULA, CBC, ADIFF, GFR, BMP #### [address] [address] MCV (RBC) [Entitic vol] 94.2 fL High 80.0-94.0 [facility] ([place]) Comment on above: Performed By: #### A MANJULA, CBC, ADIFF, GFR, BMP #### [address] [address] Platelet 283 10 3/mcL Normal 130-400 [facility] ([place]) Comment on above: Performed By: #### A MANJULA, CBC, ADIFF, GFR, BMP #### [address] [address] Platelet mean volume (Bld) [Entitic vol] 7.2 fL Low 7.4-10.4 [facility] ([place]) Comment on above: Performed By: #### A MANJULA, CBC, ADIFF, GFR, BMP #### [address] [address] RBC 3.30 10 6/mcL Low 4.20-5.40 [facility] ([place]) Comment on above: Performed By: #### A MANJULA, CBC, ADIFF, GFR, BMP #### [address] [address] WBC 4.8 10 3/mcL Normal 4.6-10.8 [facility] ([place]) Comment on above: Performed By: #### A MANJULA, CBC, ADIFF, GFR, BMP #### [address] [address] LABORATORYOrdered By: SYSTEM SYSTEM on 12-03-2023 Basophil, [...] Detected AH Auto Viro/Sero SS B. parapertussis [id number] DNA FAUSTO+non-probe Ql (Nph) Not Detected *NA* [...] This assay has been validated in the [facility] for use with nasopharyngeal specimens in [facility]. If a non-validated specimen or [...] 12-03-2023 Adenovirus Not detected Normal Not Detected [facility] ([place]) Comment on above: Performed By: #### A MANJULA, CBC, ADIFF, GFR, BMP #### [address] [address] Bordetella Parapertussis Not detected Normal Not Detected [facility] ([place] Comment on above: Performed By: #### A MANJULA, CBC, ADIFF, GFR, BMP #### [address] [address] [place]et[place] Pertussis Not detected Normal Not Detected [facility] ([place]) Comment on above: Performed By: #### A MANJULA, CBC, ADIFF, GFR, BMP #### [address] [address] Chlamydophila pneumoniae Not detected Normal Not Detected [facility] ([place]) Comment on above: Performed By: #### A MANJULA, CBC, ADIFF, GFR, BMP #### [place] [address] Coronavirus 229E (Not COVID-19) Not detected Normal Not Detected [facility] ([place]) Comment on above: Performed By: #### A MANJULA, CBC, ADIFF, GFR, BMP #### [place] [address] Coronavirus HKU1 (Not COVID-19) Not detected Normal Not Detected [facility] ([place]) Comment on above: Performed By: #### A MANJULA, CBC, ADIFF, GFR, BMP #### [place] [address] Coronavirus NL63 (Not COVID-19) Not detected Normal Not Detected [facility] ([place]) Comment on above: Performed By: #### A MANJULA, CBC, ADIFF, GFR, BMP #### [place] [address] Coronavirus OC43 (Not COVID-19) Not detected Normal Not Detected [facility] ([place]) Comment on above: Performed By: #### A MANJULA, CBC, ADIFF, GFR, BMP #### [place] [address] Human Metapneumovirus Not detected Normal Not Detected [facility] ([place]) Comment on above: Performed By: #### A MANJULA, CBC, ADIFF, GFR, BMP #### [place] [address] Influenza A Not detected Normal Not Detected [facility] ([place] Comment on above: Performed By: #### A MANJULA, CBC, ADIFF, GFR, BMP #### [place] [address] Influenza B Not detected Normal Not Detected [facility] ([place]) Comment on above: Performed By: #### A MANJULA, CBC, ADIFF, GFR, BMP #### [place] [address] Mycoplasma pneumoniae Not detected Normal Not Detected [facility] ([place]) Comment on above: Performed By: #### A MANJULA, CBC, ADIFF, GFR, BMP #### [place] [address] Parainfluenza 1 Not detected Normal Not Detected [facility] ([place]) Comment on above: Performed By: #### A MANJULA, CBC, ADIFF, GFR, BMP #### [place] [address] Parainfluenza 2 Not detected Normal Not Detected [facility] ([place] Comment on above: Performed By: #### A MANJULA, CBC, ADIFF, GFR, BMP #### [place] [address] Parainfluenza 3 Not detected Normal Not Detected [facility] ([place] Comment on above: Performed By: #### A MANJULA, CBC, ADIFF, GFR, BMP #### [place] [address] Parainfluenza 4 Not detected Normal Not Detected [facility] ([place] Comment on above: Performed By: #### A MANJULA, CBC, ADIFF, GFR, BMP #### [place] [address] Respiratory Syncytial Virus Not detected Normal Not Detected [facility] ([place]) Comment on above: Performed By: #### A MANJULA, CBC, ADIFF, GFR, BMP #### [place] [address] Rhinovirus/Enterovirus Not detected Normal Not Detected [facility] ([place] Comment on above: Performed By: #### A MANJULA, CBC, ADIFF, GFR, BMP #### [place] [address] SARS-CoV-2 (COVID-19) RNA FAUSTO+probe Ql (Unsp spec) Not detected Normal Not Detected [facility] ([place]) Comment on above: Result Comment: This test is being used under the FDA EUA procedure. This assay has been validated in the [facility] for use with nasopharyngeal specimens in [facility]. If a non-validated specimen or [...] A MANJULA, CBC, ADIFF, GFR, BMP #### [address] [address] UAon 12-03-2023 Color (U) Yellow Normal [facility] ([place]) Comment on above: Performed By: #### U A #### [address] [address] Glucose (U) [Mass/Vol] Negative Normal Negative [facility] ([place]) Comment on above: Performed By: #### U A #### [address] [address] Ketones Ql (U) Negative Normal Negative [facility] ([place]) Comment on above: Performed By: #### U A #### [address] [address] UA Appear Clear Normal Clear [facility] ([place]) Comment on above: Performed By: #### U A #### [address] [address] UA Blood Negative Normal Negative [facility] ([place]) Comment on above: Performed By: #### U A #### [place] [address] UA Leuk Est Negative Normal Negative [facility] ([place]) Comment on above: Performed By: #### U A #### [place] [address] UA Nitrite Negative Normal Negative [facility] ([place]) Comment on above: Performed By: #### U A #### [place] [address] UA pH 7.0 Normal 5.0 - 8.0 [facility] ([place]) Comment on above: Performed By: #### U A #### [place] [address] UA Protein Negative Normal Negative [facility] ([place]) Comment on above: Performed By: #### U A #### [place] [address] UA Spec Grav 1.010 Abnormal 1.015-1.02 5 [facility] ([place]) Comment on above: Performed By: #### U A #### [place] [address] UA Specimen Type Clean Catch Normal [facility] ([place]) Comment on above: Performed By: #### U A #### [place] [address] UA Urobilinogen 0.2 E.U./dL Normal 0.2-1.0 [facility] ([place]) Comment on above: Performed By: #### U A #### [place] [address] Urobilinogen (U) [Mass/Vol] Negative Normal Negative [facility] ([place]) Comment on above: Performed By: #### U A #### [place] [address] .Auto Diffon 04-25-2024 Basophil, Absolute 0.0 10 3/mcL Normal 0.0-0.2 [facility] ([place]) Comment on above: Performed By: #### A MANJULA, CBC, ADIFF, GFR, BMP #### [address] [address] Basophils/100 WBC (Bld) 0.9 % Normal 0.0-2.5 [facility] ([place]) Comment on above: Performed By: #### A MANJULA, CBC, ADIFF, GFR, BMP #### [address] [address] Eosinophil, Absolute 0.1 10 3/mcL Normal 0.0-0.4 [facility] ([place]) Comment on above: Performed By: #### A MANJULA, CBC, ADIFF, GFR, BMP #### [address] [address] Eosinophils/100 WBC (Bld) 2.4 % Normal 0.0-7.0 [facility] ([place]) Comment on above: Performed By: #### A MANJULA, CBC, ADIFF, GFR, BMP #### [address] [address] Lymphocyte, Absolute 0.9 10 3/mcL Normal 0.8-3.9 [facility] ([place]) Comment on above: Performed By: #### A MANJULA, CBC, ADIFF, GFR, BMP #### [address] [address] Lymphocytes/100 WBC (Bld) 19.6 % Normal 10.0-50.0 [facility] ([place]) Comment on above: Performed By: #### A MANJULA, CBC, ADIFF, GFR, BMP #### [address] [address] Monocyte, Absolute 0.3 10 3/mcL Normal 0.2-1.0 [facility] ([place] Comment on above: Performed By: #### A MANJULA, CBC, ADIFF, GFR, BMP #### [address] [address] Monocytes/100 WBC (Bld) 7.0 % Normal 1.7-13.0 [facility] ([place]) Comment on above: Performed By: #### A MANJULA, CBC, ADIFF, GFR, BMP #### [address] [address] Neutrophils/100 WBC (Bld) 70.1 % Normal 37.0-80.0 [facility] ([place]) Comment on above: Performed By: #### A MANJULA, CBC, ADIFF, GFR, BMP #### [address] [address] .GFRon 12-02-2023 GFR 94 ml/min/1.73sqm Normal [facility] ([place]) Comment on above: Result Comment: GFR Population [...] A MANJULA, CBC, ADIFF, GFR, BMP #### [address] [address] GFR Non- 77 ml/min/1.73sqm Normal [facility] ([place]) Comment on above: Result Comment: GFR Population [...] A MANJULA, CBC, ADIFF, GFR, BMP #### [address] [address] .NEUABSon 12-02-2023 Neutrophil, Absolute 3.2 10 3/mcL Normal 2.9-6.2 [facility] ([place]) Comment on above: Performed By: #### A MANJULA, CBC, ADIFF, GFR, BMP #### [address] [address] BMPon 12-02-2023 BUN/Creatinine Ratio 17 ratio Normal 7-27 [facility] ([place]) Comment on above: Performed By: #### A MANJULA, CBC, ADIFF, GFR, BMP #### [address] [address] Calcium [Mass/Vol] 8.7 mg/dL Normal 8.4-10.2 [facility] ([place]) Comment on above: Performed By: #### A MANJULA, CBC, ADIFF, GFR, BMP #### [address] [address] Chloride [Moles/Vol] 102 mmol/L Normal 98-107 [facility] ([place]) Comment on above: Performed By: #### A MANJULA, CBC, ADIFF, GFR, BMP #### [address] [address] CO2 [Moles/Vol] 29 mmol/L Normal 23-31 [facility] ([place]) Comment on above: Performed By: #### A MANJULA, CBC, ADIFF, GFR, BMP #### [address] [address] Creatinine [Mass/Vol] 0.72 mg/dL Normal 0.55-1.02 [facility] ([place]) Comment on above: Performed By: #### A MANJULA, CBC, ADIFF, GFR, BMP #### [address] [address] Electrolyte Balance 10.0 mEq/L Normal 4.0-15.0 [facility] ([place]) Comment on above: Performed By: #### A MANJULA, CBC, ADIFF, GFR, BMP #### [address] [address] Glucose [Mass/Vol] 103 mg/dL Normal 83-110 [facility] ([place]) Comment on above: Performed By: #### A MANJULA, CBC, ADIFF, GFR, BMP #### [address] [address] Potassium [Moles/Vol] 4.4 mmol/L Normal 3.5-5.1 [facility] ([place]) Comment on above: Performed By: #### A MANJULA, CBC, ADIFF, GFR, BMP #### [address] [address] Sodium [Moles/Vol] 141 mmol/L Normal 136-145 [facility] ([place]) Comment on above: Performed By: #### A MANJULA, CBC, ADIFF, GFR, BMP #### [address] [address] Urea nitrogen [Mass/Vol] 12 mg/dL Normal 7-18 [facility] ([place]) Comment on above: Performed By: #### A MANJULA, CBC, ADIFF, GFR, BMP #### [address] [address] CBCon 12-02-2023 Erythrocyte distribution width (RBC) [Ratio] 13.3 % Normal 11.5-14.5 [facility]) Comment on above: Performed By: #### A MANJULA, CBC, ADIFF, GFR, BMP #### [address] [address] Hematocrit (Bld) [Volume fraction] 33.2 % Low 37.0-47.0 [facility] ([place]) Comment on above: Performed By: #### A MANJULA, CBC, ADIFF, GFR, BMP #### [address] [address] Hgb 11.0 G/dL Low 12.0-16.0 [facility] ([place]) Comment on above: Performed By: #### A MANJULA, CBC, ADIFF, GFR, BMP #### [address] [address] MCH (RBC) [Entitic mass] 31.6 pg High 27.0-31.2 [facility] ([place]) Comment on above: Performed By: #### A MANJULA, CBC, ADIFF, GFR, BMP #### [address] [address] MCHC 33.2 G/dL Normal 33.0-37.0 [facility] ([place]) Comment on above: Performed By: #### A MANJULA, CBC, ADIFF, GFR, BMP #### [address] [address] MCV (RBC) [Entitic vol] 95.2 fL High 80.0-94.0 [facility] ([place]) Comment on above: Performed By: #### A MANJULA, CBC, ADIFF, GFR, BMP #### [address] [address] Platelet 319 10 3/mcL Normal 130-400 [facility] ([place]) Comment on above: Performed By: #### A MANJULA, CBC, ADIFF, GFR, BMP #### [address] [address] Platelet mean volume (Bld) [Entitic vol] 7.5 fL Normal 7.4-10.4 [facility] ([place]) Comment on above: Performed By: #### A MANJULA, CBC, ADIFF, GFR, BMP #### [address] [address] RBC 3.49 10 6/mcL Low 4.20-5.40 [facility] ([place]) Comment on above: Performed By: #### A MANJULA, CBC, ADIFF, GFR, BMP #### [address] [address] WBC 4.5 10 3/mcL Low 4.6-10.8 [facility] ([place]) Comment on above: Performed By: #### A MANJULA, CBC, ADIFF, GFR, BMP #### [place] [address] CVFLURVon 12-02-2023 FLU A PCR Negative Normal Negative [facility] ([place]) Comment on above: Performed By: #### A MANJULA, CBC, ADIFF, GFR, BMP #### [place] [address] FLU B PCR Negative Normal Negative [facility] ([place]) Comment on above: Performed By: #### A MANJULA, CBC, ADIFF, GFR, BMP #### [place] [address] RSV PCR Negative Normal Negative [facility] ([place]) Comment on above: Performed By: #### A MANJULA, CBC, ADIFF, GFR, BMP #### [place] [address] SARS-CoV-2 (COVID-19) RNA FAUSTO+probe Ql (Unsp spec) Negative Normal Negative [facility] ([place]) Comment on above: Result Comment: Resu lts [...] A MANJULA, CBC, ADIFF, GFR, BMP #### [place] [address] LABORATORYOrdered By: Mina Pedersen on 12-02-2023 FLUAV [...] on 11-26-2023 Chloride [Moles/Vol] 100 mmol/L 98-107 [facility] Glucose [Mass/Vol] 117 mg/dL 74-106 [facility] Comment on above: Fasting Glucose resu lt from 100 to 125 mg/dL suggests IMPAIRED HOMEOSTASIS per A.D.A. criteria. Hemoglobin (Bld) [Mass/Vol] 11.2 g/dL 12.0-15.0 [facility] Potassium [Moles/Vol] 3.3 mmol/L 3.5-5.1 [facility] Sodium [Moles/Vol] 135 mmol/L 136-145 [facility] WBC (Bld) [#/Vol] 6.1 10*3/uL 4.4-11.0 [facility] Determination of erythrocyte mean corpuscular volume (MCV)Ordered By: Kelby Aguilar on 11-26-2023 MCV (RBC) [Entitic vol] 98.1 fL 81-99 [facility] Erythrocyte distribution wid th ratioOrdered By: Kelby Aguilar on 11-26-2023 Erythrocyte distribution width (RBC) [Ratio] 13.2 % 11.6-14.6 [facility] Erythrocyte distribution wid th standard deviationOrdered By: Kelby Aguilar on 11-26-2023 Erythrocyte distribution width (RBC) [Entitic vol] 47.1 fL 35.1-43.9 [facility] Hematocrit Auto (Bld) [Volum e fraction]Ordered By: Kelby Aguilar on 11-26-2023 Hematocrit (Bld) [Volume fraction] 35.4 % 37-47 [facility] Laboratory - Chemistry and C hemistry - challengeOrdered By: Kelby Aguilar on 11-26-2023 CO2 [Moles/Vol] 27.0 mmol/L 21.0-32.0 [facility] Urea nitrogen/Creatinine [Mass ratio] 17.1 mg/mg 10-20 [facility] Laboratory - Hematology and Cell countsOrdered By: Kelby Aguilar on 11-26-2023 MCH (RBC) [Entitic mass] 31.0 pg 27.0-32.0 [facility] MCHC (RBC) [Mass/Vol] 31.6 g/dL 32-36 [facility] Platelet mean volume (Bld) [Entitic vol] 10.3 fL 6.2-12.0 [facility] Platelets (Bld) [#/Vol] 215 10*3/uL 150-450 [facility] No Panel InformationOrdered By: Kelby Aguilar on 11-26-2023 Estimated Creatinine Clearance Calc 48.91 ml/min [facility] Estimated GFR (MDRD) Amer 102 mL/min >60 [facility] Comment on above: GFR Calc Estimated GFR (MDRD) Non-Af Amer 84 mL/min >60 [facility] Comment on above: Non- GFR Calc RBC Auto (Bld) [#/Vol]Ordere d By: Kelby Aguilar on 11-26-2023 RBC (Bld) [#/Vol] 3.61 10*6/uL 4.2-5.4 [facility] Serum or plasma calcium nina urement (mass/volume)Ordered By: Kelby Aguilar on 11-26-2023 Calcium [Mass/Vol] 8.6 mg/dL 8.5-10.1 [facility] Serum or plasma creatinine m easurement (mass/volume)Ordered By: Kelby Aguilar on 11-26-2023 Creatinine [Mass/Vol] 0.70 mg/dL 0.55-1.02 [facility] Comment on above: The validity of the calculated GFR & GFRAA in patients over 70 years has not been determined. Clinical correlation is essential. Serum or plasma urea nitroge n measurement (mass/volume)Ordered By: Kelby Aguilar on 11-26-2023 Urea nitrogen [Mass/Vol] 12 mg/dL 7-18 [facility] Thin prep Papanicolaou smear with manual screeningOrdered By: Kelby Aguilar on 11-26-2023 Thin prep Papanicolaou smear with manual screening 8 5-15 [facility] Laboratory - Chemistry and C hemistry - challengeOrdered By: Kelby Aguilar on 11-25-2023 CK [Catalytic activity/Vol] 1138 U/L 26-192 [facility] Absolute lymphocyte countOrd ered By: Smith Ho on 11-23-2023 Lymphocytes Auto (Unsp spec) [#/Vol] 1.14 10*3/uL 0.83-4.51 [facility] Automated lymphocyte count a s percentage of total leukocytesOrdered By: Smith Ho on 11-23-2023 Lymphocytes/100 WBC Auto (Unsp spec) 12.9 % 19-41 [facility] Basophil percentageOrdered B y: Smith Ho on 11-23-2023 Basophil percentage 10-25 SEEN /hpf 0-5 [facility] Basophils/100 WBC (Bld) 0.5 % 0-1 [facility] Chloride [Moles/Vol] 107 mmol/L 98-107 [facility] Eosinophils/100 WBC (Bld) 0.1 % 0-5 [facility] Glucose [Mass/Vol] 122 mg/dL 74-106 [facility] Comment on above: Fasting Glucose resu lt from 100 to 125 mg/dL suggests IMPAIRED HOMEOSTASIS per A.D.A. criteria. Hemoglobin (Bld) [Mass/Vol] 12.3 g/dL 12.0-15.0 [facility] Monocytes/100 WBC (Bld) 9.0 % 0-10 [facility] Neutrophils (Bld) [#/Vol] 6.8 10*3/uL 2.0-7.7 [facility] Neutrophils/100 WBC (Bld) 77.0 % 47-70 [facility] Potassium [Moles/Vol] 3.8 mmol/L 3.5-5.1 [facility] Sodium [Moles/Vol] 141 mmol/L 136-145 [facility] WBC (Bld) [#/Vol] 8.8 10*3/uL 4.4-11.0 [facility] Bilirubin Test strip Ql (U)O rdered By: Smith Ho on 11-23-2023 Bilirubin Ql (U) Negative Negative [facility] Culture, urineOrdered By: Deandre Ho on 11-23-2023 Bacteria identified Cx Nom (U) Presumptive E. coli [facility] Determination of erythrocyte mean corpuscular volume (MCV)Ordered By: Smith Ho on 11-23-2023 MCV (RBC) [Entitic vol] 96.9 fL 81-99 [facility] Erythrocyte distribution wid th ratioOrdered By: Smith Ho on 11-23-2023 Erythrocyte distribution width (RBC) [Ratio] 13.3 % 11.6-14.6 [facility] Erythrocyte distribution wid th standard deviationOrdered By: Smith Ho on 11-23-2023 Erythrocyte distribution width (RBC) [Entitic vol] 47.7 fL 35.1-43.9 [facility] Hematocrit Auto (Bld) [Volum e fraction]Ordered By: Smith Ho on 11-23-2023 Hematocrit (Bld) [Volume fraction] 37.9 % 37-47 [facility] Immature granulocytes/100 WB C Auto (Bld)Ordered By: Smith Ho on 11-23-2023 Immature granulocytes/100 WBC (Bld) 0.500 % 0.0-0.9 [facility] Comment on above: IG% - Immature Granu locytes (promyelocytes, myelocytes and metamyelocytes) > 1% indicates that a LEFT SHIFT is Present. Ketones Test strip Ql (U)Ord ered By: Smith Ho on 11-23-2023 Ketones Ql (U) 5 mg/dl Negative [facility] Laboratory - Chemistry and C hemistry - challengeOrdered By: Smith Ho on 11-23-2023 CK [Catalytic activity/Vol] 2446 U/L 26-192 [facility] CO2 [Moles/Vol] 27.0 mmol/L 21.0-32.0 [facility] Urea nitrogen/Creatinine [Mass ratio] 24.1 mg/mg 10-20 [facility] Laboratory - Hematology and Cell countsOrdered By: Smith Ho on 11-23-2023 MCH (RBC) [Entitic mass] 31.5 pg 27.0-32.0 [facility] MCHC (RBC) [Mass/Vol] 32.5 g/dL 32-36 [facility] Nucleated RBC/100 WBC (Bld) [Ratio] 0 % 0-5 [facility] Platelet mean volume (Bld) [Entitic vol] 9.9 fL 6.2-12.0 [facility] Platelets (Bld) [#/Vol] 192 10*3/uL 150-450 [facility] Mucus LM Ql (Urine sed)Order ed By: Smith Ho on 11-23-2023 Mucus Ql (Urine sed) 1+ /hpf [facility] Nitrite Test strip Ql (U)Ord ered By: Smith Ho on 11-23-2023 Nitrite Ql (U) Positive Negative [facility] No Panel InformationOrdered By: Smith Ho on 11-23-2023 Urine RBC 0-5 SEEN /hpf 0-5 [facility] Estimated Creatinine Clearance Calc 50.43 ml/min [facility] Estimated GFR (MDRD) Amer 95 mL/min >60 [facility] Comment on above: GFR Calc Estimated GFR (MDRD) Non-Af Amer 79 mL/min >60 [facility] Comment on above: Non- GFR Calc Protein Test strip Ql (U)Ord ered By: Smith Ho on 11-23-2023 Protein Ql (U) 30 mg/dl Negative [facility] RBC Auto (Bld) [#/Vol]Ordere d By: Smith Ho on 11-23-2023 RBC (Bld) [#/Vol] 3.91 10*6/uL 4.2-5.4 [facility] Serum or plasma calcium nina urement (mass/volume)Ordered By: Smith Ho on 11-23-2023 Calcium [Mass/Vol] 9.4 mg/dL 8.5-10.1 [facility] Serum or plasma creatinine m easurement (mass/volume)Ordered By: Smith Ho on 11-23-2023 Creatinine [Mass/Vol] 0.75 mg/dL 0.55-1.02 [facility] Comment on above: The validity of the calculated GFR & GFRAA in patients over 70 years has not been determined. Clinical correlation is essential. Serum or plasma thyroid stim ulating hormone (TSH) measurement (units/volume)Ordered By: Kelby Aguilar on 11-23-2023 TSH Qn 1.59 uIU/mL 0.358-3.74 [facility] Serum or plasma urea nitroge n measurement (mass/volume)Ordered By: Smith Ho on 11-23-2023 Urea nitrogen [Mass/Vol] 18 mg/dL 7-18 [facility] Squamous epithelial cells de tection in urine sediment by light microscopyOrdered By: Smith Ho on 11-23-2023 Epithelial cells.squamous LM Ql (Urine sed) 0-5 SEEN /hpf 5-10 [facility] Thin prep Papanicolaou smear with manual screeningOrdered By: Smith Ho on 11-23-2023 Thin prep Papanicolaou smear with manual screening 7 5-15 [facility] Urine blood detectionOrdered By: Smith Ho on 11-23-2023 RBC Ql (U) 250 /ul Negative [facility] Urine clarityOrdered By: Migue Ho on 11-23-2023 Clarity (U) Cloudy Clear [facility] Urine color determinationOrd ered By: Smith Ho on 11-23-2023 Color (U) Yellow Yellow [facility] Urine glucose detectionOrder ed By: Smith Ho on 11-23-2023 Glucose Ql (U) Normal mg/dl Normal [facility] Urine leukocyte esterase det ection by dipstickOrdered By: Smith Ho on 11-23-2023 Leukocyte esterase Test strip Ql (U) 500 /ul Negative [facility] Urine pHOrdered By: Smith bryson on 11-23-2023 pH (U) 6.0 [pH] 5.0 - 8.0 [facility] Urine sediment bacteria coun t by microscopy (number/high power field)Ordered By: Smith Ho on 11-23-2023 Bacteria LM.HPF (Urine sed) [#/Area] 4 /[HPF] None Seen [facility] Urine specific gravity measu rementOrdered By: Smith Ho on 11-23-2023 Specific gravity (U) [Rel density] 1.010 1.002-1.03 0 [facility] Urine urobilinogen measureme ntOrdered By: Smith Ho on 11-23-2023 Urobilinogen Ql (U) Normal mg/dl Normal [facility] CNPNon 08-22-[address] [facility] CBC W Auto Differential pane l (Bld)on 08-18-2023 Basophils (Bld) [#/Vol] 0.08 10*3/uL Normal <0.11 [facility] Comment on above: Order Comment: Speci men Type: BLOOD SPECIMENOrdering Facility: [facility] Address: [address] [place] [address] Performed By: #### 5 7021-8 ####[facility] [id number] [place] [address] [place] Basophils/100 WBC (Bld) 1.3 % Normal [facility] Comment on above: Order Comment: Speci men Type: BLOOD SPECIMENOrdering Facility: [facility] Address: [address] [place] [address] Performed By: #### 5 7021-8 ####[facility] [id number] [place] [address] [place] Differential cell count method Nom (Bld) Auto Normal [facility] Comment on above: Order Comment: Speci men Type: BLOOD SPECIMENOrdering Facility: [facility] Address: [address] [place] [address] Performed By: #### 5 7021-8 ####[facility] [id number] [place] [address] [place] Eosinophils (Bld) [#/Vol] 0.21 10*3/uL Normal <0.46 [facility] Comment on above: Order Comment: Speci men Type: BLOOD SPECIMENOrdering Facility: [facility] Address: [address] [place] [address] Performed By: #### 5 7021-8 ####[facility] [id number] [place] [address] [place] Eosinophils/100 WBC (Bld) 3.4 % Normal [facility] Comment on above: Order Comment: Speci men Type: BLOOD SPECIMENOrdering Facility: [facility] Address: [address] [place] [address] Performed By: #### 5 7021-8 ####[facility] [id number] [place] [address] [place] Erythrocyte distribution width (RBC) [Ratio] 15.9 % High 11.5-15.0 [facility] Comment on above: Order Comment: Speci men Type: BLOOD SPECIMENOrdering Facility: [facility] Address: [address] [place] [address] Performed By: #### 5 7021-8 ####[facility] [id number] [place] [address] [place] Hematocrit (Bld) [Volume fraction] 40.1 % Normal 36.0-46.0 [facility] Comment on above: Order Comment: Speci men Type: BLOOD SPECIMENOrdering Facility: [facility] Address: [address] [place] [address] Performed By: #### 5 7021-8 ####[facility] [id number] [place] [address] [place] Hemoglobin (Bld) [Mass/Vol] 12.7 g/dL Normal 11.5-15.5 [facility] Comment on above: Order Comment: Speci men Type: BLOOD SPECIMENOrdering Facility: [facility] Address: [address] [place] [address] Performed By: #### 5 7021-8 ####[facility] [id number] [place] [address] [place] Immature granulocytes (Bld) [#/Vol] 10*3/uL Normal <0.10 [facility] Comment on above: Order Comment: Speci men Type: BLOOD SPECIMENOrdering Facility: [facility] Address: [address] [place] [address] Performed By: #### 5 7021-8 ####[facility] [id number] [place] [address] [place] Immature granulocytes/100 WBC (Bld) 0.2 % Normal [facility] Comment on above: Order Comment: Speci men Type: BLOOD SPECIMENOrdering Facility: [facility] Address: [address] [place] [address] Performed By: #### 5 7021-8 ####[facility] [id number] [place] [address] [place] Lymphocytes (Bld) [#/Vol] 2.16 10*3/uL Normal 1.00-4.00 [facility] Comment on above: Order Comment: Speci men Type: BLOOD SPECIMENOrdering Facility: [facility] Address: [address] [place] [address] Performed By: #### 5 7021-8 ####[facility] MGMARIONANYILIA [id number] [place] [address] [place] Lymphocytes/100 WBC (Bld) 35.0 % Normal [facility] Comment on above: Order Comment: Speci men Type: BLOOD SPECIMENOrdering Facility: [facility] Address: [address] [place] [address] Performed By: #### 5 7021-8 ####[facility] CENTERANYILI [id number] [place] [address] [place] MCH (RBC) [Entitic mass] 31.5 pg Normal 26.0-34.0 [facility] Comment on above: Order Comment: Speci men Type: BLOOD SPECIMENOrdering Facility: [facility] Address: [address] [place] [address] Performed By: #### 5 7021-8 ####[facility]ENTERANYIBLUE [facility] [id number] [place] [address] [place] MCHC (RBC) [Mass/Vol] 31.7 g/dL Normal 30.5-36.0 [facility] Comment on above: Order Comment: Speci men Type: BLOOD SPECIMENOrdering Facility: [facility] Address: [address] [place] [address] Performed By: #### 5 7021-8 ####[facility] CENTERANYILIA [id number] [place] [address] [place] MCV (RBC) [Entitic vol] 99.5 fL Normal 80.0-100.0 [facility] Comment on above: Order Comment: Speci men Type: BLOOD SPECIMENOrdering Facility: [facility] Address: [address] [place] [address] Performed By: #### 5 7021-8 ####[facility] CENTERNCLI [id number] [place] [address] [place] Monocytes (Bld) [#/Vol] 0.47 10*3/uL Normal <0.87 [facility] Comment on above: Order Comment: Speci men Type: BLOOD SPECIMENOrdering Facility: [facility] Address: [address] [place] [address] Performed By: #### 5 7021-8 ####[facility] [id number] [place] [address] [place] Monocytes/100 WBC (Bld) 7.6 % Normal [facility] Comment on above: Order Comment: Speci men Type: BLOOD SPECIMENOrdering Facility: [facility] Address: [address] [place] [address] Performed By: #### 5 7021-8 ####[facility] [id number] [place] [address] [place] Neutrophils (Bld) [#/Vol] 3.24 10*3/uL Normal 1.45-7.50 [facility] Comment on above: Order Comment: Speci men Type: BLOOD SPECIMENOrdering Facility: [facility] Address: [address] [place] [address] Performed By: #### 5 7021-8 ####[facility] [id number] [place] [address] [place] Neutrophils/100 WBC (Bld) 52.5 % Normal [facility] Comment on above: Order Comment: Speci men Type: BLOOD SPECIMENOrdering Facility: [facility] Address: [address] [place] [address] Performed By: #### 5 7021-8 ####[facility] [id number] [place] [address] [place] Nucleated RBC (Bld) [#/Vol] 10*3/uL Normal <0.01 [facility] Comment on above: Order Comment: Speci men Type: BLOOD SPECIMENOrdering Facility: [facility] Address: [address] [place] [address] Performed By: #### 5 7021-8 ####[facility] ALLENLIA [id number] [place] [address] [place] Nucleated RBC/100 WBC (Bld) [Ratio] 0.0 /[address] [facility] Comment on above: Order Comment: Speci men Type: BLOOD SPECIMENOrdering Facility: [facility] Address: [address] [place] [address] Performed By: #### 5 7021-8 ####[facility] MGMARIONANYILIA [id number] [place] [address] [place] Platelet mean volume (Bld) [Entitic vol] 10.0 fL Normal 9.0-12.7 [facility] Comment on above: Order Comment: Speci men Type: BLOOD SPECIMENOrdering Facility: [facility] Address: [address] [place] [address] Performed By: #### 5 7021-8 ####[facility]-FAIRHILLSTEFANIEA [id number] [place] [address] [place] Platelets (Bld) [#/Vol] 272 10*3/uL Normal 150-400 [facility] Comment on above: Order Comment: Speci men Type: BLOOD SPECIMENOrdering Facility: [facility] Address: [address] [place] [address] Performed By: #### 5 7021-8 ####[facility] MGMARIONANYILIA [id number] [place] [address] [place] RBC (Bld) [#/Vol] 4.03 10*6/uL Normal 3.90-5.20 [facility] Comment on above: Order Comment: Speci men Type: BLOOD SPECIMENOrdering Facility: [facility] Address: [address] [place] [address] Performed By: #### 5 7021-8 ####[facility] [id number] [place] [address] [place] WBC (Bld) [#/Vol] 6.17 10*3/uL Normal 3.70-11.00 [facility] Comment on above: Order Comment: Speci men Type: BLOOD SPECIMENOrdering Facility: [facility] Address: [address] [place] [address] Performed By: #### 5 7021-8 ####[facility] [id number] [place] [address] [place] CNOVon 08-18-[address] [facility] Cancer Ag125 SerPl-aCncon Cancer Ag 125 Qn 6 [arb'U]/mL Normal <39 [facility] Comment on above: Order Comment: Speci men Type: BLOOD SPECIMENOrdering Facility: [facility] Address: [address] [place] [address] Result Comment: CA 1 25 test methodology [...] (CA 125 II) [package insert V 1.0 [place]]. [facility], [place], [place] (May 2015) Performed By: #### 3 016-3, LIPNF, 08600-6 ####[facility] LABCLIA [id number] [facility] [id number] [place] [address] [place]#### 19221-3 ####[facility]ENTERNCLIA [id number] [place] [address] [place] Comprehensive metabolic 2000 panelon 08-18-2023 Albumin [Mass/Vol] 4.9 g/dL Normal 3.9-4.9 [facility] Comment on above: Order Comment: Speci men Type: BLOOD SPECIMENOrdering Facility: [facility] Address: [address] [place] [address] Performed By: #### 3 016-3, LIPNF, 10680-8 ####[facility] LABCLIA [id number] [place] [address] [place]#### 30375-9 ####[facility] PAULINE MILLTOWNCLIA [id number] [place] [address] [place] ALP [Catalytic activity/Vol] 108 U/L Normal 34-123 [facility] Comment on above: Order Comment: Speci men Type: BLOOD SPECIMENOrdering Facility: [facility] Address: [address] [place] [address] Performed By: #### 3 016-3, LIPNF, 82030-0 ####[facility] LABCLIA [id number] [place] [address] [place]#### 71865-7 ####[facility] MILLWNCLIA [id number] [place] [address] [place] ALT [Catalytic activity/Vol] 17 U/L Normal 7-38 [facility] Comment on above: Order Comment: Speci men Type: BLOOD SPECIMENOrdering Facility: [facility] Address: [address] [place] [address] Performed By: #### 3 016-3, LIPNF, 03270-7 ####[facility] LABCLIA [id number] [place] [address] [place]#### 17164-5 ####[facility] PAULINE MILLTOWNCLIA [id number] [place] [address] [place] Anion gap [Moles/Vol] 12 mmol/L Normal 9-18 [facility] Comment on above: Order Comment: Speci men Type: BLOOD SPECIMENOrdering Facility: [facility] Address: [address] [place] [address] Performed By: #### 3 016-3, LIPNF, 30501-7 ####[facility] LABCLIA [id number] [place] [address] [place]#### 77394-4 ####[facility] MILLWNCLIA [id number] [place] [address] [place] AST [Catalytic activity/Vol] 25 U/L Normal 13-35 [facility] Comment on above: Order Comment: Speci men Type: BLOOD SPECIMENOrdering Facility: [facility] Address: [address] [place] [address] Performed By: #### 3 016-3, LIPNF, 60781-6 ####[facility] LABCLIA [id number] [place] [address] [place]#### 47687-3 ####[facility] RIVERSIDEWNCLIA [id number] [place] [address] [place] Bilirubin [Mass/Vol] 0.4 mg/dL Normal 0.2-1.3 [facility] Comment on above: Order Comment: Speci men Type: BLOOD SPECIMENOrdering Facility: [facility] Address: [address] [place] [address] Performed By: #### 3 016-3, LIPNF, 61923-0 ####[facility] LABCLIA [id number] [place] [address] [place]#### 94219-3 ####[facility] MILLTOWNCLIA [id number] [place] [address] [place] Calcium [Mass/Vol] 9.8 mg/dL Normal 8.5-10.2 [facility] Comment on above: Order Comment: Speci men Type: BLOOD SPECIMENOrdering Facility: [facility] Address: [address] [place] [address] Performed By: #### 3 016-3, LIPNF, 27697-8 ####[facility] LABCLIA [id number] [place] [address] [place]#### 60539-2 ####[facility] MILLTOWNCLIA [id number] [place] [address] [place] Chloride [Moles/Vol] 99 mmol/L Normal 97-105 [facility] Comment on above: Order Comment: Speci men Type: BLOOD SPECIMENOrdering Facility: [facility] Address: [address] [place] [address] Performed By: #### 3 016-3, LIPNF, 02548-3 ####[facility] LABCLIA [id number] [place] [address] [place]#### 87951-5 ####[facility] MILLWNCLIA [id number] [place] [address] [place] CO2 [Moles/Vol] 26 mmol/L Normal 22-30 [facility] Comment on above: Order Comment: Speci men Type: BLOOD SPECIMENOrdering Facility: [facility] Address: [address] [place] [address] Performed By: #### 3 016-3, LIPNF, 36127-7 ####[facility] LABCLIA [id number] [place] [address] [place]#### 08399-9 ####[facility] MILLTOWNCLIA [id number] [place] [address] [place] Creatinine [Mass/Vol] 0.72 mg/dL Normal 0.58-0.96 [facility] Comment on above: Order Comment: Speci men Type: BLOOD SPECIMENOrdering Facility: [facility] Address: [address] [place] [address] Performed By: #### 3 016-3, LIPNF, 39921-4 ####[facility] LABIA [id number] [place] [address] [place]#### 93816-1 ####[facility] [id number] [place] [address] [place] Creatinine and Glomerular filtration rate.predicted panel (S/P/Bld) 83 mL/min/1.73m??? Normal >=60 [facility] Comment on above: Order Comment: Speci men Type: BLOOD SPECIMENOrdering Facility: [facility] Address: [address] [place] [address] Result Comment: Marlyn mated Glomerular Filtration Rate [...] GFR. Performed By: #### 3 016-3, LIPNF, 42383-0 ####[facility] LABIA [id number] [place] [address] [place]#### 98893-0 ####[facility] [id number] [place] [address] [place] Glucose [Mass/Vol] 112 mg/dL High 74-99 [facility] Comment on above: Order Comment: Speci men Type: BLOOD SPECIMENOrdering Facility: [facility] Address: [address] [place] [address] Result Comment: The [place] Diabetes Association (ADA) provides guidance for cutoff [...] Standards of Medical Care in Diabetes 2016, [place] Diabetes Association. Diabetes Care. 2016.39(Suppl 1). Performed By: #### 3 016-3, LIPNF, 62980-6 ####[facility] LABCLIA [id number] [place] [address] [place]#### 08312-2 ####[facility] PAULINE MILLTOWNCLIA [id number] [place] [address] [place] Potassium [Moles/Vol] 4.3 mmol/L Normal 3.7-5.1 [facility] Comment on above: Order Comment: Speci men Type: BLOOD SPECIMENOrdering Facility: [facility] Address: [address] [place] [address] Performed By: #### 3 016-3, LIPNF, 44817-1 ####[facility] LABCLIA [id number] [place] [address] [place]#### 40909-8 ####[facility] PAULINE MILLTOWNCLIA [id number] [place] [address] [place] Protein [Mass/Vol] 8.7 g/dL High 6.3-8.0 [facility] Comment on above: Order Comment: Speci men Type: BLOOD SPECIMENOrdering Facility: [facility] Address: [address] [place] [address] Performed By: #### 3 016-3, LIPNF, 03955-0 ####[facility] LABCLIA [id number] [place] [address] [place]#### 34446-4 ####[facility] [id number] [place] [address] [place] Sodium [Moles/Vol] 137 mmol/L Normal 136-144 [facility] Comment on above: Order Comment: Speci men Type: BLOOD SPECIMENOrdering Facility: [facility] Address: [address] [place] [address] Performed By: #### 3 016-3, LIPNF, 82708-4 ####[facility] LABCLIA [id number] [place] [address] [place]#### 86490-7 ####[facility] [id number] [place] [address] [place] Urea nitrogen [Mass/Vol] 18 mg/dL Normal 7-21 [facility] Comment on above: Order Comment: Speci men Type: BLOOD SPECIMENOrdering Facility: [facility] Address: [address] [place] [address] Performed By: #### 3 016-3, LIPNF, 19942-8 ####[facility] LABCLIA [id number] [place] [address] [place]#### 84974-7 ####[facility] [id number] [place] [address] [place] LIPID PANEL, NONFASTINGon Cholesterol [Mass/Vol] 201 mg/dL High <200 [facility] Comment on above: Order Comment: Speci men Type: BLOOD SPECIMENOrdering Facility: [facility] Address: [address] [place] [address] Result Comment: <200 mg/dL, Desirable 200-239 mg/dL, Borderline high>239 mg/dL, High Performed By: #### 3 016-3, LIPNF, 33166-1 ####[facility] LABCLIA [id number] [place] [address] [place]#### 17360-2 ####[facility] MILLTOWNCLIA [id number] [address] STATES OF [facility] HDL CHOLESTEROL, NF 81 mg/dL Normal >39 [facility] Comment on above: Order Comment: Speci men Type: BLOOD SPECIMENOrdering Facility: [facility] Address: [address] [place] [address] Result Comment: 40-5 9 mg/dL, Acceptable>59 mg/dL, High: Negative risk factor for coronary heart disease<40 mg/dL, Low: Positive risk factor for coronary heart disease Performed By: #### 3 016-3, LIPNF, 37243-7 ####[facility] LABCLIA [id number] [address] [place]#### 37558-5 ####[facility] [id number] [address] [facility] LDL CHOLESTEROL, NF 96 mg/dL Normal <100 [facility] Comment on above: Order Comment: Speci men Type: BLOOD SPECIMENOrdering Facility: [facility] Address: [address] [place] [address] Result Comment: <100 mg/dL, Optimal 100-129 mg/dL, Near optimal/above optimal 130-159 mg/dL, Borderline high 160-189 mg/dL, High>189 mg/dL, Very highSecondary prevention optimal LDL Cholesterol levels are recommended to be < 70 mg/dL Performed By: #### 3 016-3, LIPNF, 02994-8 ####[facility] LABCLIA [id number] [place] [address] [place]#### 58114-2 ####[facility] MILLTOWNCLIA [id number] [place] [address] [place] LDL/HDL RATIO, NF 1.19 mg/dL Normal <2.54 [facility] Comment on above: Order Comment: Speci men Type: BLOOD SPECIMENOrdering Facility: [facility] Address: [address] [place] [address] Result Comment: Kapil raymond:1. National Cholesterol Education Program ATP III Guideline At-A-Glance Quick Desk Reference: National Heart, Lung, and Blood [place]. National Institutes of Health. 2001: NIH Publication No. 01-3305.2. An International Atherosclerosis Society position paper: global recommendations for the management of dyslipidemia: executive summary, Atherosclerosis. 2014: 232(2):410-413. Performed By: #### 3 016-3, LIPNF, 78548-8 ####[facility] LABCLIA [id number] [address] STATES [place]#### 15356-9 ####[facility] [id number] [address] [place] NON HDL CHOL, NF 120 mg/dL Normal <130 [facility] Comment on above: Order Comment: Zay sandoval Type: BLOOD SPECIMENOrdering Facility: [facility] Address: [address] [place] [address] Result Comment: <130 mg/dL, Optimal 130-159 mg/dL, Near optimal/above optimal 160-189 mg/dL, Borderline high 190-219 mg/dL, High>219 mg/dL, Very highSecondary prevention optimal non HDL Cholesterol levels are recommended to be <100 mg/dL Performed By: #### 3 016-3, LIPNF, 73540-5 ####[facility] LABCLIA [id number] [place] [address] [facility] [place]#### 64529-8 ####[facility] [id number] [address] T CHOL/HDL RATIO NF 2.48 mg/dL Normal <5.10 [facility] Comment on above: Order Comment: Pratibhai men Type: BLOOD SPECIMENOrdering Facility: [facility] Address: [address] [place] [address] Performed By: #### 3 016-3, LIPNF, 57537-8 ####[facility] LABCLIA [id number] [place] [address] [place]#### 16629-1 ####[facility] MILLWNCLIA [id number] [place] [address] [place] TRIGLYCERIDES, NF 118 mg/dL Normal <150 [facility] Comment on above: Order Comment: Speci men Type: BLOOD SPECIMENOrdering Facility: [facility] Address: [address] [place] [address] Result Comment: <150 mg/dL, Normal 150-199 mg/dL, Borderline high 200-499 mg/dL, High>499 mg/dL, Very high Performed By: #### 3 016-3, LIPNF, 16585-9 ####[facility] LABCLIA [id number] [place] [address] [place]#### 96361-6 ####[facility] [id number] [place] [address] [place] VLDL CHOLESTEROL, NF 24 mg/dL Normal <30 [facility] Comment on above: Order Comment: Speci men Type: BLOOD SPECIMENOrdering Facility: [facility] Address: [address] [place] [address] Performed By: #### 3 016-3, LIPNF, 85620-2 ####[facility] LABCLIA [id number] [place] [address] [place]#### 37415-7 ####[facility] MILLWNCLIA [id number] [place] [address] [place] Magnesium [facility] Magnesium [Mass/Vol] 2.2 mg/dL Normal 1.7-2.3 [facility] Comment on above: Order Comment: Speci men Type: BLOOD SPECIMENOrdering Facility: [facility] Address: [address] [place] [address] Performed By: #### 1 9123-9 ####[facility] PAULINE LOPEZANNIA [id number] [place] [address] [place] PAIN PANEL, UR QUANTon 08-18 9-Mnjfijlbvw-3,5-Dimet hyl-3,3-Diphenylpyrrol idine (EDDP) Confirm (U) [Mass/Vol] <6 Normal <6 [facility] Comment on above: Order Comment: Speci men Type: URINE SPECIMENOrdering Facility: [facility] Address: [address] [place] [address] Result Comment: EDDP is a metabolite of methadone. Performed By: #### L [id number] ####[facility] LABIA [id number] [address] STATES OF [facility] 6-Monoacetylmorphine (6-SUNNI) (U) [Mass/Vol] <5 Normal <5 [facility] Comment on above: Order Comment: Speci men Type: URINE SPECIMENOrdering Facility: [facility] Address: [address] [place] [address] Result Comment: 6-MA M (6-monoacetylmorphine, also known as 6-acetylmorphine) is a unique metabolite of heroin. Presence of 6-SUNNI indicates use of heroin. 6-SUNNI is further metabolized to morphine and absence of 6-SUNNI does not rule out the use of heroin. Performed By: #### L [id number] ####[facility] LABIA [id number] [address] [place] Amphetamine Confirm (U) [Mass/Vol] <5 Normal <5 [facility] Comment on above: Order Comment: Speci men Type: URINE SPECIMENOrdering Facility: [facility] Address: [address] [place] [address] Performed By: #### L [id number] ####[facility] [id number] [place] [address] [place] Benzoylecgonine Confirm (U) [Mass/Vol] <24 Normal <24 [facility] Comment on above: Order Comment: Speci men Type: URINE SPECIMENOrdering Facility: [facility] Address: [address] [place] [address] Result Comment: Kenneth oylecgonine is a metabolite of cocaine. Performed By: #### L [id number] ####[facility] [id number] [place] [address] [place] Buprenorphine (U) [Mass/Vol] <20 Normal <20 [facility] Comment on above: Order Comment: Speci men Type: URINE SPECIMENOrdering Facility: [facility] Address: [address] [place] [address] Performed By: #### L [id number] ####[facility] [id number] [place] [address] [place] Cannabinoids Confirm (U) [Mass/Vol] <16 Normal <16 [facility] Comment on above: Order Comment: Speci men Type: URINE SPECIMENOrdering Facility: [facility] Address: [address] [place] [address] Result Comment: Tetr ahydrocannabinol carboxylic acid (THCA) is a metabolite of uredw-1-pigvwzjukwomtdqhhybv which is the main active component of marijuana. Performed By: #### L [id number] ####[facility] [id number] [place] [address] [place] Codeine Confirm (U) [Mass/Vol] <11 Normal <11 [facility] Comment on above: Order Comment: Speci men Type: URINE SPECIMENOrdering Facility: [facility] Address: [address] [place] [address] Performed By: #### L [id number] ####[facility] LABIA [id number] [place] [address] [place] Dihydrocodeine Confirm (U) [Mass/Vol] <5 Normal <5 [facility] Comment on above: Order Comment: Speci men Type: URINE SPECIMENOrdering Facility: [facility] Address: [address] [place] [address] Performed By: #### L [id number] ####[facility] LABIA [id number] [place] [address] [place] fentaNYL Confirm (U) [Mass/Vol] <6 Normal <6 [facility] Comment on above: Order Comment: Speci men Type: URINE SPECIMENOrdering Facility: [facility] Address: [address] [place] [address] Performed By: #### L [id number] ####[facility] [id number] [place] [address] [place] HYDROcodone Confirm (U) [Mass/Vol] <8 Normal <8 [facility] Comment on above: Order Comment: Speci men Type: URINE SPECIMENOrdering Facility: [facility] Address: [address] [place] [address] Result Comment: Hydr ocodone is a metabolite of dihydrocodeine. Performed By: #### L [id number] ####[facility] [id number] [place] [address] [place] HYDROmorphone Confirm (U) [Mass/Vol] <5 Normal <5 [facility] Comment on above: Order Comment: Speci men Type: URINE SPECIMENOrdering Facility: [facility] Address: [address] [place] [address] Result Comment: Hydr omorphone is a metabolite of hydrocodone. Performed By: #### L [id number] ####[facility] LABIA [id number] [place] [address] [place] Methadone Confirm (U) [Mass/Vol] <16 Normal <16 [facility] Comment on above: Order Comment: Speci men Type: URINE SPECIMENOrdering Facility: [facility] Address: [address] [place] [address] Performed By: #### L [id number] ####[facility] [id number] [place] [address] [place] Methamphetamine Confirm (U) [Mass/Vol] <8 Normal <8 [facility] Comment on above: Order Comment: Speci men Type: URINE SPECIMENOrdering Facility: [facility] Address: [address] [place] [address] Performed By: #### L [id number] ####[facility] [id number] [address] [place] Morphine Confirm (U) [Mass/Vol] <10 Normal <10 [facility] Comment on above: Order Comment: Speci men Type: URINE SPECIMENOrdering Facility: [facility] Address: [address] [place] [address] Result Comment: Morp shahida is a metabolite of codeine and heroin. Performed By: #### L [id number] ####[facility] [id number] [address] [place] Norbuprenorphine (U) [Mass/Vol] <20 Normal <20 [facility] Comment on above: Order Comment: Speci men Type: URINE SPECIMENOrdering Facility: [facility] Address: [address] [place] [address] Result Comment: Norb uprenorphine is the primary active metabolite of buprenorphine. Performed By: #### L [id number] ####[facility] [id number] [address] [place] Norfentanyl Confirm (U) [Mass/Vol] <6 Normal <6 [facility] Comment on above: Order Comment: Speci men Type: URINE SPECIMENOrdering Facility: [facility] Address: [address] [place] [address] Result Comment: Norf entanyl is a metabolite of fentanyl. Performed By: #### L [id number] ####[facility] LABIA [id number] [place] [address] [place] Nortramadol (U) [Mass/Vol] >5000 High <20 [facility] Comment on above: Order Comment: Speci men Type: URINE SPECIMENOrdering Facility: [facility] Address: [address] [place] [address] Result Comment: O-De smethyltramadol is a metabolite of tramadol and its presence indicates use of a tramadol containing drug (Ultram). Performed By: #### L [id number] ####[facility] [id number] [place] [address] [place] NOTE,UR PAIN ROMAN Normal [facility] Comment on above: Order Comment: Speci men Type: URINE SPECIMENOrdering Facility: [facility] Address: [address] [place] [address] Result Comment: This test is for medical use only.This test was developed and its performance characteristics determined by [facility]'s [facility] [place] (-[facility]). It has not been cleared or approved by the FDA. -[facility] is regulated under CLIA as qualified to perform high-complexity testing. This test is used for clinical purposes. It should not be regarded as investigational or for research. Performed By: #### L [id number] ####[facility] LABIA [id number] [place] [address] [place] oxyCODONE Confirm (U) [Mass/Vol] <10 Normal <10 [facility] Comment on above: Order Comment: Speci men Type: URINE SPECIMENOrdering Facility: [facility] Address: [address] [place] [address] Performed By: #### L [id number] ####[facility] LABIA [id number] [place] [address] [place] oxyMORphone Confirm (U) [Mass/Vol] <5 Normal <5 [facility] Comment on above: Order Comment: Speci men Type: URINE SPECIMENOrdering Facility: [facility] Address: [address] [place] [address] Result Comment: Oxym orphone is a metabolite of oxycodone. Performed By: #### L [id number] ####[facility] LABIA [id number] [place] [address] [place] traMADol Confirm (U) [Mass/Vol] >5208 High <25 [facility] Comment on above: Order Comment: Speci men Type: URINE SPECIMENOrdering Facility: [facility] Address: [address] [place] [address] Result Comment: Pres ence of tramadol indicates use of a tramadol containing drug (Ultram). Tramadol is metabolized to O-Desmethyltramadol. Performed By: #### L [id number] ####[facility] LABIA [id number] [place] [address] [place] SPECIMEN VALIDITY, URINEon 0 1-10-4 CHROMATE,URINE <10 Normal <50 [facility] Comment on above: Order Comment: Speci men Type: URINE SPECIMENOrdering Facility: [facility] Address: [address] [place] [address] Performed By: #### L [id number] ####[facility] LABIA [id number] [place] [address] [place] CREATININE,URINE 124.4 mg/dL Normal 20.0-300.0 [facility] Comment on above: Order Comment: Speci men Type: URINE SPECIMENOrdering Facility: [facility] Address: [address] [place] [address] Performed By: #### L [id number] ####[facility] LABCLIA [id number] [place] [address] [place] NITRITES,URINE 52 mg/L Normal <500 [facility] Comment on above: Order Comment: Speci men Type: URINE SPECIMENOrdering Facility: [facility] Address: [address] [place] [address] Performed By: #### L [id number] ####[facility] LABCLIA [id number] [place] [address] [place] OXIDANTS,URINE <38 Normal <200 [facility] Comment on above: Order Comment: Speci men Type: URINE SPECIMENOrdering Facility: [facility] Address: [address] [place] [address] Performed By: #### L [id number] ####[facility] LABCLIA [id number] [place] [address] [place] pH (U) 5.8 [pH] Normal 4.5-8.0 [facility] Comment on above: Order Comment: Speci men Type: URINE SPECIMENOrdering Facility: [facility] Address: [address] [place] [address] Performed By: #### L [id number] ####[facility] LABCLIA [id number] [place] [address] [place] SPEC GRAVITY,UR 1.017 Normal 1.003-1.[address] [facility] Comment on above: Order Comment: Speci men Type: URINE SPECIMENOrdering Facility: [facility] [facility] Address: [address] [place] [address] Performed By: #### L [id number] ####[facility] LABCLIA [id number] [place] [address] [place] SPECIMEN VALIDITY QUALITY Specimen quality results within acceptable limits Normal [facility] Comment on above: Order Comment: Speci men Type: URINE SPECIMENOrdering Facility: [facility] Address: [address] [place] [address] Performed By: #### L [id number] ####[facility] LABCLIA [id number] [place] [address] [place] TOX SCREEN ROUT URon -10-2 024 Amphetamines Confirm (U) [Mass/Vol] Negative Normal Negative [facility] Comment on above: Order Comment: Speci men Type: URINE SPECIMENOrdering Facility: [facility] Address: [address] [place] [address] Result Comment: Cuto ff threshold at 1000 ng/mL. Performed By: #### U TOX2 ####[facility] LABCLIA [id number] [place] [address] [place] BARBITURATES, URINE Negative Normal Negative [facility] Comment on above: Order Comment: Speci men Type: URINE SPECIMENOrdering Facility: [facility] Address: [address] [place] [address] Result Comment: Cuto ff threshold at 200 ng/mL. Performed By: #### U TOX2 ####[facility] LABCLIA [id number] [place] [address] [place] BENZODIAZEPINES, UR Negative Normal Negative [facility] Comment on above: Order Comment: Speci men Type: URINE SPECIMENOrdering Facility: [facility] Address: [address] [place] [address] Result Comment: Cuto ff threshold at 200 ng/mL. Performed By: #### U TOX2 ####[facility] LABCLIA [id number] [place] [address] [place] Cannabinoids Screen Ql (U) Negative Normal Negative [facility] Comment on above: Order Comment: Speci men Type: URINE SPECIMENOrdering Facility: [facility] Address: [address] [place] [address] Result Comment: Cuto ff threshold at 50 ng/mL. Performed By: #### U TOX2 ####[facility] LABCLIA [id number] [place] [address] [place] Cocaine Ql (U) Negative Normal Negative [facility] Comment on above: Order Comment: Speci men Type: URINE SPECIMENOrdering Facility: [facility] Address: [address] [place] [address] Result Comment: Cuto ff threshold at 300 ng/mL. Performed By: #### U TOX2 ####[facility] LABCLIA [id number] [place] [address] [place] Ethanol (U) [Mass/Vol] <11 Normal <11 [facility] Comment on above: Order Comment: Speci men Type: URINE SPECIMENOrdering Facility: [facility] Address: [address] [place] [address] Performed By: #### U TOX2 ####[facility] LABIA [id number] [place] [address] [place] Opiates Screen Ql (U) Negative Normal Negative [facility] Comment on above: Order Comment: Speci men Type: URINE SPECIMENOrdering Facility: [facility] Address: [address] [place] [address] Result Comment: Cuto ff threshold at 300 ng/mL. Performed By: #### U TOX2 ####[facility] LABIA [id number] [place] [address] [place] oxyCODONE cutoff Screen (U) [Mass/Vol] Negative Normal Negative [facility] Comment on above: Order Comment: Speci men Type: URINE SPECIMENOrdering Facility: [facility] Address: [address] [place] [address] Result Comment: Cuto ff threshold at 100 ng/mL. Performed By: #### U TOX2 ####[facility] LABIA [id number] [place] [address] [place] Phencyclidine Ql (U) Negative Normal Negative [facility] Comment on above: Order Comment: Speci men Type: URINE SPECIMENOrdering Facility: [facility] Address: [address] [place] [address] Result Comment: Cuto ff threshold at 25 ng/mL. Performed By: #### U TOX2 ####[facility] LABIA [id number] [address] [place] TSH SerPl-aCncon 08-18-2023 TSH Qn 3.510 m[IU]/L Normal 0.270-4.[address] [facility] Comment on above: Order Comment: Speci men Type: BLOOD SPECIMENOrdering Facility: [facility] Address: [address] [place] [address] Performed By: #### 3 016-3, LIPNF, 82672-7 ####[facility] LABCLIA [id number] [place] [address] [place]#### 16211-5 ####[facility] MILLWANYILIA [id number] [place] [address] [place] CBC W Auto Differential pane l (Bld)on 07-26-2023 Basophils (Bld) [#/Vol] 0.09 10*3/uL Normal <0.11 [facility] Comment on above: Order Comment: Speci men Type: BLOOD SPECIMENOrdering Facility: [facility] Address: [address] [place] [address] Performed By: #### 5 7021-8 ####[facility]CL[facility] [id number] [place] [address] [place] Basophils/100 WBC (Bld) 2.0 % Normal [facility] Comment on above: Order Comment: Speci men Type: BLOOD SPECIMENOrdering Facility: [facility] Address: [address] [place] [address] Performed By: #### 5 7021-8 ####[facility]LIA [id number] [address] [place] Differential cell count method Nom (Bld) Auto Normal [facility] Comment on above: Order Comment: Speci men Type: BLOOD SPECIMENOrdering Facility: [facility] Address: [address] [place] [address] Performed By: #### 5 7021-8 ####[facility]ILLLIA [id number] [place] [address] [place] Eosinophils (Bld) [#/Vol] 0.04 10*3/uL Normal <0.46 [facility] Comment on above: Order Comment: Speci men Type: BLOOD SPECIMENOrdering Facility: [facility] Address: [address] [place] [address] Performed By: #### 5 7021-8 ####[facility] [id number] [place] [address] [place] Eosinophils/100 WBC (Bld) 0.9 % Normal [facility] Comment on above: Order Comment: Speci men Type: BLOOD SPECIMENOrdering Facility: [facility] Address: [address] [place] [address] Performed By: #### 5 7021-8 ####[facility] [id number] [place] [address] [place] Erythrocyte distribution width (RBC) [Ratio] 16.9 % High 11.5-15.0 [facility] Comment on above: Order Comment: Speci men Type: BLOOD SPECIMENOrdering Facility: [facility] Address: [address] [place] [address] Performed By: #### 5 7021-8 ####[facility] [id number] [place] [address] [place] Hematocrit (Bld) [Volume fraction] 37.4 % Normal 36.0-46.0 [facility] Comment on above: Order Comment: Speci men Type: BLOOD SPECIMENOrdering Facility: [facility] Address: [address] [place] [address] Performed By: #### 5 7021-8 ####[facility]ILLLIA [id number] [place] [address] [place] Hemoglobin (Bld) [Mass/Vol] 12.0 g/dL Normal 11.5-15.5 [facility] Comment on above: Order Comment: Speci men Type: BLOOD SPECIMENOrdering Facility: [facility] Address: [address] [place] [address] Performed By: #### 5 7021-8 ####[facility] [id number] [place] [address] [place] Immature granulocytes (Bld) [#/Vol] 10*3/uL Normal <0.10 [facility] Comment on above: Order Comment: Speci men Type: BLOOD SPECIMENOrdering Facility: [facility] Address: [address] [place] [address] Performed By: #### 5 7021-8 ####[facility] [id number] [place] [address] [place] Immature granulocytes/100 WBC (Bld) 0.0 % Normal [facility] Comment on above: Order Comment: Speci men Type: BLOOD SPECIMENOrdering Facility: [facility] Address: [address] [place] [address] Performed By: #### 5 7021-8 ####[facility] [id number] [place] [address] [place] Lymphocytes (Bld) [#/Vol] 2.35 10*3/uL Normal 1.00-4.00 [facility] Comment on above: Order Comment: Speci men Type: BLOOD SPECIMENOrdering Facility: [facility] Address: [address] [place] [address] Performed By: #### 5 7021-8 ####[facility] [id number] [place] [address] [place] Lymphocytes/100 WBC (Bld) 51.8 % Normal [facility] Comment on above: Order Comment: Speci men Type: BLOOD SPECIMENOrdering Facility: [facility] Address: [address] [place] [address] Performed By: #### 5 7021-8 ####[facility]ENTERNCLIA [id number] [place] [address] [facility] MCH (RBC) [Entitic mass] 32.1 pg Normal 26.0-34.0 [facility] Comment on above: Order Comment: Speci men Type: BLOOD SPECIMENOrdering Facility: [facility] Address: [address] [place] [address] Performed By: #### 5 7021-8 ####[facility]ENTERNCLIA [id number] [place] [address] [place] MCHC (RBC) [Mass/Vol] 32.1 g/dL Normal 30.5-36.0 [facility] Comment on above: Order Comment: Speci men Type: BLOOD SPECIMENOrdering Facility: [facility] Address: [address] [place] [address] Performed By: #### 5 7021-8 ####[facility]ENTERNCBL[facility] [id number] [place] [address] [place] MCV (RBC) [Entitic vol] 100.0 fL Normal 80.0-100.0 [facility] Comment on above: Order Comment: Speci men Type: BLOOD SPECIMENOrdering Facility: [facility] Address: [address] [place] [address] Performed By: #### 5 7021-8 ####[facility]ILLLIA [id number] [place] [address] [place] Monocytes (Bld) [#/Vol] 0.50 10*3/uL Normal <0.87 [facility] Comment on above: Order Comment: Speci men Type: BLOOD SPECIMENOrdering Facility: [facility] Address: [address] [place] [address] Performed By: #### 5 7021-8 ####[facility] [id number] [place] [address] [place] Monocytes/100 WBC (Bld) 11.0 % Normal [facility] Comment on above: Order Comment: Speci men Type: BLOOD SPECIMENOrdering Facility: [facility] Address: [address] [place] [address] Performed By: #### 5 7021-8 ####[facility] [id number] [place] [address] [place] Neutrophils (Bld) [#/Vol] 1.56 10*3/uL Normal 1.45-7.50 [facility] Comment on above: Order Comment: Speci men Type: BLOOD SPECIMENOrdering Facility: [facility] Address: [address] [place] [address] Performed By: #### 5 7021-8 ####[facility] [id number] [place] [address] [place] Neutrophils/100 WBC (Bld) 34.3 % Normal [facility] Comment on above: Order Comment: Speci men Type: BLOOD SPECIMENOrdering Facility: [facility] Address: [address] [place] [address] Performed By: #### 5 7021-8 ####[facility] [id number] [place] [address] [place] Nucleated RBC (Bld) [#/Vol] 10*3/uL Normal <0.01 [facility] Comment on above: Order Comment: Speci men Type: BLOOD SPECIMENOrdering Facility: [facility] Address: [address] [place] [address] Performed By: #### 5 7021-8 ####[facility] [id number] [place] [address] [place] Nucleated RBC/100 WBC (Bld) [Ratio] 0.0 /[address] [facility] Comment on above: Order Comment: Speci men Type: BLOOD SPECIMENOrdering Facility: [facility] Address: [address] [place] [address] Performed By: #### 5 7021-8 ####[facility] VIPINNCFARZANA [id number] [place] [address] [place] Platelet mean volume (Bld) [Entitic vol] 9.7 fL Normal 9.0-12.7 [facility] Comment on above: Order Comment: Speci men Type: BLOOD SPECIMENOrdering Facility: [facility] Address: [address] [place] [address] Performed By: #### 5 7021-8 ####[facility] CENTERNCFARZANA [id number] [place] [address] [place] Platelets (Bld) [#/Vol] 270 10*3/uL Normal 150-400 [facility] Comment on above: Order Comment: Speci men Type: BLOOD SPECIMENOrdering Facility: [facility] Address: [address] [place] [address] Performed By: #### 5 7021-8 ####[facility]ENTERNCLIA [id number] [place] [address] [place] RBC (Bld) [#/Vol] 3.74 10*6/uL Low 3.90-5.20 [facility] Comment on above: Order Comment: Speci men Type: BLOOD SPECIMENOrdering Facility: [facility] Address: [address] [place] [address] Performed By: #### 5 7021-8 ####[facility]ENTERNCLIA [id number] [place] [address] [place] WBC (Bld) [#/Vol] 4.54 10*3/uL Normal 3.70-11.00 [facility] Comment on above: Order Comment: Speci men Type: BLOOD SPECIMENOrdering Facility: [facility] Address: [address] [place] [address] Performed By: #### 5 7021-8 ####[facility]ENTERNCBL[facility], [facility] [id number] [place] [address] [place] CNOVSPon 07-26-[address] [facility] Cancer Ag125 SerPl-aCncon Cancer Ag 125 Qn 6 [arb'U]/mL Normal <39 [facility] Comment on above: Order Comment: Speci men Type: BLOOD SPECIMENOrdering Facility: [facility] Address: [address] [place] [address] Result Comment: CA 1 25 test methodology [...] (CA 125 II) [package insert V 1.0 Libyan]. [employer] [facility], [place], [place] (May 2015) Performed By: #### 1 0334-1 ####[facility] LABCLIA [id number] [place] [address] [place] Comprehensive metabolic 2000 panelon 07-26-2023 Albumin [Mass/Vol] 4.3 g/dL Normal 3.9-4.9 [facility] Comment on above: Order Comment: Speci men Type: BLOOD SPECIMENOrdering Facility: [facility] Address: [address] [place] [address] Performed By: #### 2 4323-8, 38747-9 ####[facility] CENTERNCA [id number] [place] [address] [place] ALP [Catalytic activity/Vol] 99 U/L Normal 34-123 [facility] Comment on above: Order Comment: Speci men Type: BLOOD SPECIMENOrdering Facility: [facility] Address: [address] [place] [address] Performed By: #### 2 4323-8, ####[facility] MILLTOWNCLIA [id number] [place] [address] [place] ALT [Catalytic activity/Vol] 19 U/L Normal 7-38 [facility] Comment on above: Order Comment: Speci men Type: BLOOD SPECIMENOrdering Facility: [facility] Address: [address] [place] [address] Performed By: #### 2 432-8, ####[facility] MILLTOWNCLIA [id number] [place] [address] [place] Anion gap [Moles/Vol] 12 mmol/L Normal 9-18 [facility] Comment on above: Order Comment: Speci men Type: BLOOD SPECIMENOrdering Facility: [facility] Address: [address] [place] [address] Performed By: #### 2 4328, ####[facility] CENTERANYILIA [id number] [place] [address] [place] AST [Catalytic activity/Vol] 26 U/L Normal 13-35 [facility] Comment on above: Order Comment: Speci men Type: BLOOD SPECIMENOrdering Facility: [facility] Address: [address] [place] [address] Performed By: #### 2 4328, ####[facility] MILLTOWNCLIA [id number] [place] [address] [place] Bilirubin [Mass/Vol] 0.3 mg/dL Normal 0.2-1.3 [facility] Comment on above: Order Comment: Speci men Type: BLOOD SPECIMENOrdering Facility: [facility] Address: [address] [place] [address] Performed By: #### 2 432-8, ####[facility] CENTERANYILIA [id number] [place] [address] [place] Calcium [Mass/Vol] 10.2 mg/dL Normal 8.5-10.2 [facility] Comment on above: Order Comment: Speci men Type: BLOOD SPECIMENOrdering Facility: [facility] Address: [address] [place] [address] Performed By: #### 2 4323-8, ####[facility] MILLTOWNCLIA [id number] [place] [address] [place] Chloride [Moles/Vol] 103 mmol/L Normal 97-105 [facility] Comment on above: Order Comment: Speci men Type: BLOOD SPECIMENOrdering Facility: [facility] Address: [address] [place] [address] Performed By: #### 2 4323-8, ####[facility] MILLWNCLIA [id number] [place] [address] [place] CO2 [Moles/Vol] 22 mmol/L Normal 22-30 [facility] Comment on above: Order Comment: Speci men Type: BLOOD SPECIMENOrdering Facility: [facility] Address: [address] [place] [address] Performed By: #### 2 4323-8, ####[facility] MILLTOWNCLIA [id number] [place] [address] [place] Creatinine [Mass/Vol] 0.61 mg/dL Normal 0.58-0.96 [facility] Comment on above: Order Comment: Speci men Type: BLOOD SPECIMENOrdering Facility: [facility] Address: [address] [place] [address] Performed By: #### 2 4323-8, ####[facility] MILLTOWNCLIA [id number] [place] [address] [place] Creatinine and Glomerular filtration rate.predicted panel (S/P/Bld) 88 mL/min/1.73m??? Normal >=60 [facility] Comment on above: Order Comment: Zay sandoval Type: BLOOD SPECIMENOrdering Facility: [facility] Address: [address] [place] [address] Result Comment: Marlyn mated Glomerular Filtration Rate [...] actual GFR. Performed By: #### 2 4323-8, 95047-3 ####[facility] [id number] [place] [address] [place] Glucose [Mass/Vol] 102 mg/dL High 74-99 [facility] Comment on above: Order Comment: Zay sandoval Type: BLOOD SPECIMENOrdering Facility: [facility] Address: [address] [place] [address] Result Comment: The [place] [employer] (ADA) provides guidance for cutoff [...] Standards of Medical Care in Diabetes 2016, [place] [employer]. Diabetes Care. 2016.39(Suppl 1). Performed By: #### 2 4323-8, 64312-6 ####[facility]ILLLI [id number] [place] [address] [place] Potassium [Moles/Vol] 4.5 mmol/L Normal 3.7-5.1 [facility] Comment on above: Order Comment: Speci men Type: BLOOD SPECIMENOrdering Facility: [facility] Address: [address] [place] [address] Performed By: #### 2 4323-8, ####[facility] MILLMARIONNCLIA [id number] [place] [address] [place] Protein [Mass/Vol] 7.7 g/dL Normal 6.3-8.0 [facility] Comment on above: Order Comment: Speci men Type: BLOOD SPECIMENOrdering Facility: [facility] Address: [address] [place] [address] Performed By: #### 2 432-8, ####[facility] CENTERNCLIA [id number] [place] [address] [place] Sodium [Moles/Vol] 137 mmol/L Normal 136-144 [facility] Comment on above: Order Comment: Speci men Type: BLOOD SPECIMENOrdering Facility: [facility] Address: [address] [place] [address] Performed By: #### 2 432-8, ####[facility] MILLMARIONNCLIA [id number] [place] [address] [place] Urea nitrogen [Mass/Vol] 26 mg/dL High 7-21 [facility] Comment on above: Order Comment: Speci men Type: BLOOD SPECIMENOrdering Facility: [facility] Address: [address] [place] [address] Performed By: #### 2 4323-8, ####[facility] CENTERNCLIA [id number] [place] [address] [place] Magnesium SerPl-mCncon 07-26 Magnesium [Mass/Vol] 2.1 mg/dL Normal 1.7-2.3 [facility] Comment on above: Order Comment: Speci men Type: BLOOD SPECIMENOrdering Facility: [facility] Address: [place] [address] Performed By: #### 2 4323-8, 77701-1 ####[facility] RIVERSIDEWNCLIA [id number] [place] [address] [place] CNPNon 07-16-[address] [facility] Basic metabolic 2000 panelon 07-14-2023 Anion gap [Moles/Vol] 11 mmol/L Normal 9-18 [facility] Comment on above: Order Comment: Speci men Type: BLOOD SPECIMENOrdering Facility: [facility] Address: [place] [address] Performed By: #### 2 4321-2 ####[facility] CENTERNCA [id number] [place] [address] [place] Calcium [Mass/Vol] 9.8 mg/dL Normal 8.5-10.2 [facility] Comment on above: Order Comment: Speci men Type: BLOOD SPECIMENOrdering Facility: [facility] Address: [place] [address] Performed By: #### 2 4321-2 ####[facility]ENTERNCLIA [id number] [place] [address] [place] Chloride [Moles/Vol] 103 mmol/L Normal 97-105 [facility] Comment on above: Order Comment: Speci men Type: BLOOD SPECIMENOrdering Facility: [facility] Address: [address] [place] [address] Performed By: #### 2 4321-2 ####[facility] CENTERNCLIA [id number] [place] [address] [place] CO2 [Moles/Vol] 26 mmol/L Normal 22-30 [facility] Comment on above: Order Comment: Speci men Type: BLOOD SPECIMENOrdering Facility: [facility] Address: [place] [address] Performed By: #### 2 4321-2 ####[facility] [id number] [place] [address] [place] Creatinine [Mass/Vol] 0.63 mg/dL Normal 0.58-0.96 [facility] Comment on above: Order Comment: Speci men Type: BLOOD SPECIMENOrdering Facility: [facility] Address: [place] [address] Performed By: #### 2 4321-2 ####[facility] [id number] [place] [address] [place] Creatinine and Glomerular filtration rate.predicted panel (S/P/Bld) 88 mL/min/1.73m??? Normal >=60 [facility] Comment on above: Order Comment: Zay men Type: BLOOD SPECIMENOrdering Facility: [facility] Address: [address] [facility] [place] [address] Result Comment: Marlyn mated Glomerular Filtration Rate [...] actual GFR. Performed By: #### 2 4321-2 ####[facility] [id number] [place] [address] [place] Glucose [Mass/Vol] 104 mg/dL High 74-99 [facility] Comment on above: Order Comment: Pratibhai men Type: BLOOD SPECIMENOrdering Facility: [facility] Address: [address] [place] [address] Result Comment: The [place] Diabetes [employer] (ADA) provides guidance for cutoff [...] Standards of Medical Care in Diabetes 2016, [place] [employer]. Diabetes Care. 2016.39(Suppl 1). Performed By: #### 2 4321-2 ####[facility] MILLWDCLIA [id number] [place] [address] [place] Potassium [Moles/Vol] 4.4 mmol/L Normal 3.7-5.1 [facility] Comment on above: Order Comment: Zay sandoval Type: BLOOD SPECIMENOrdering Facility: [facility] Address: [address] [place] [address] Performed By: #### 2 4321-2 ####[facility]ILLLIA [id number] [place] [address] [place] Sodium [Moles/Vol] 140 mmol/L Normal 136-144 [facility] Comment on above: Order Comment: Zay sandoval Type: BLOOD SPECIMENOrdering Facility: [facility] Address: [address] [place] [address] Performed By: #### 2 4321-2 ####[facility]FAIRHILLLIA [id number] [place] [address] [place] Urea nitrogen [Mass/Vol] 20 mg/dL Normal 7-21 [facility] Comment on above: Order Comment: Pratibhai men Type: BLOOD SPECIMENOrdering Facility: [facility] Address: [address] [place] [address] Performed By: #### 2 4321-2 ####[facility]FAIRHILLLIA [id number] [place] [address] [place] CBC W Auto Differential pane l (Bld)on 07-14-2023 Basophils (Bld) [#/Vol] 10*3/uL Normal <0.11 [facility] Comment on above: Order Comment: Speci men Type: BLOOD SPECIMENOrdering Facility: [facility] Address: [address] [place] [address] Performed By: #### 5 7021-8 ####[facility] RIVERSIDEWDCLIA [id number] [place] [address] [place] Basophils/100 WBC (Bld) 0.3 % Normal [facility] Comment on above: Order Comment: Speci men Type: BLOOD SPECIMENOrdering Facility: [facility] Address: [address] [place] [address] Performed By: #### 5 7021-8 ####[facility] [id number] [place] [address] [place] Differential cell count method Nom (Bld) Auto Normal [facility] Comment on above: Order Comment: Speci men Type: BLOOD SPECIMENOrdering Facility: [facility] Address: [address] [place] [address] Performed By: #### 5 7021-8 ####[facility] [id number] [place] [address] [place] Eosinophils (Bld) [#/Vol] 0.03 10*3/uL Normal <0.46 [facility] Comment on above: Order Comment: Speci men Type: BLOOD SPECIMENOrdering Facility: [facility] Address: [address] [place] [address] Performed By: #### 5 7021-8 ####[facility] [id number] [place] [address] [place] Eosinophils/100 WBC (Bld) 1.0 % Normal [facility] Comment on above: Order Comment: Speci men Type: BLOOD SPECIMENOrdering Facility: [facility] Address: [address] [place] [address] Performed By: #### 5 7021-8 ####[facility] CENTERNCLIA [id number] [place] [address] [place] Erythrocyte distribution width (RBC) [Ratio] 16.1 % High 11.5-15.0 [facility] Comment on above: Order Comment: Speci men Type: BLOOD SPECIMENOrdering Facility: [facility] Address: [address] [place] [address] Performed By: #### 5 7021-8 ####[facility] CENTERNCLIA [id number] [place] [address] [place] Hematocrit (Bld) [Volume fraction] 35.8 % Low 36.0-46.0 [facility] Comment on above: Order Comment: Speci men Type: BLOOD SPECIMENOrdering Facility: [facility] Address: [address] [place] [address] Performed By: #### 5 7021-8 ####[facility] CENTERNCLIA [id number] [place] [address] [place] Hemoglobin (Bld) [Mass/Vol] 11.6 g/dL Normal 11.5-15.5 [facility] Comment on above: Order Comment: Speci men Type: BLOOD SPECIMENOrdering Facility: [facility] Address: [address] [place] [address] Performed By: #### 5 7021-8 ####[facility] CENTERNCLIA [id number] [place] [address] [place] Immature granulocytes (Bld) [#/Vol] 10*3/uL Normal <0.10 [facility] Comment on above: Order Comment: Speci men Type: BLOOD SPECIMENOrdering Facility: [facility] Address: [address] [place] [address] Performed By: #### 5 7021-8 ####[facility] CENTERNCLI [id number] [place] [address] [place] Immature granulocytes/100 WBC (Bld) 0.3 % Normal [facility] Comment on above: Order Comment: Speci men Type: BLOOD SPECIMENOrdering Facility: [facility] Address: [address] [place] [address] Performed By: #### 5 7021-8 ####[facility]ENTERNCBLUE [facility]OUNTAIN [facility], [facility] [id number] [place] [address] [place] Lymphocytes (Bld) [#/Vol] 1.62 10*3/uL Normal 1.00-4.00 [facility] Comment on above: Order Comment: Speci men Type: BLOOD SPECIMENOrdering Facility: [facility] Address: [address] [place] [address] Performed By: #### 5 7021-8 ####[facility] [id number] [place] [address] [place] Lymphocytes/100 WBC (Bld) 54.0 % Normal [facility] Comment on above: Order Comment: Speci men Type: BLOOD SPECIMENOrdering Facility: [facility] Address: [address] [place] [address] Performed By: #### 5 7021-8 ####[facility] [id number] [place] [address] [place] MCH (RBC) [Entitic mass] 31.8 pg Normal 26.0-34.0 [facility] Comment on above: Order Comment: Speci men Type: BLOOD SPECIMENOrdering Facility: [facility] Address: [address] [place] [address] Performed By: #### 5 7021-8 ####[facility] [id number] [place] [address] [place] MCHC (RBC) [Mass/Vol] 32.4 g/dL Normal 30.5-36.0 [facility] Comment on above: Order Comment: Speci men Type: BLOOD SPECIMENOrdering Facility: [facility] Address: [address] [place] [address] Performed By: #### 5 7021-8 ####[facility] MGROMAIN [id number] [place] [address] [place] MCV (RBC) [Entitic vol] 98.1 fL Normal 80.0-100.0 [facility] Comment on above: Order Comment: Speci men Type: BLOOD SPECIMENOrdering Facility: [facility] Address: [address] [place] [address] Performed By: #### 5 7021-8 ####[facility] CENTERNCFARZANA [id number] [place] [address] [place] Monocytes (Bld) [#/Vol] 0.23 10*3/uL Normal <0.87 [facility] Comment on above: Order Comment: Speci men Type: BLOOD SPECIMENOrdering Facility: [facility] Address: [address] [place] [address] Performed By: #### 5 7021-8 ####[facility] CENTERNCDavid [id number] [place] [address] [place] Monocytes/100 WBC (Bld) 7.7 % Normal [facility] Comment on above: Order Comment: Speci men Type: BLOOD SPECIMENOrdering Facility: [facility] Address: [address] [place] [address] Performed By: #### 5 7021-8 ####[facility]FAIRHILLLI [id number] [place] [address] [place] Neutrophils (Bld) [#/Vol] 1.10 10*3/uL Low 1.45-7.50 [facility] Comment on above: Order Comment: Speci men Type: BLOOD SPECIMENOrdering Facility: [facility] Address: [address] [place] [address] Performed By: #### 5 7021-8 ####[facility]-FAIRHILLLIA [id number] [place] [address] [place] Neutrophils/100 WBC (Bld) 36.7 % Normal [facility] Comment on above: Order Comment: Speci men Type: BLOOD SPECIMENOrdering Facility: [facility] Address: [address] [place] [address] Performed By: #### 5 7021-8 ####[facility] [id number] [place] [address] [place] Nucleated RBC (Bld) [#/Vol] 10*3/uL Normal <0.01 [facility] Comment on above: Order Comment: Speci men Type: BLOOD SPECIMENOrdering Facility: [facility] Address: [address] [place] [address] Performed By: #### 5 7021-8 ####[facility] [id number] [place] [address] [place] Nucleated RBC/100 WBC (Bld) [Ratio] 0.0 /[address] [facility] Comment on above: Order Comment: Speci men Type: BLOOD SPECIMENOrdering Facility: [facility] Address: [address] [place] [address] Performed By: #### 5 7021-8 ####[facility] [id number] [place] [address] [place] Platelet mean volume (Bld) [Entitic vol] 9.1 fL Normal 9.0-12.7 [facility] Comment on above: Order Comment: Speci men Type: BLOOD SPECIMENOrdering Facility: [facility] Address: [address] [place] [address] Performed By: #### 5 7021-8 ####[facility] [id number] [place] [address] [place] Platelets (Bld) [#/Vol] 373 10*3/uL Normal 150-400 [facility] Comment on above: Order Comment: Speci men Type: BLOOD SPECIMENOrdering Facility: [facility] Address: [address] [place] [address] Performed By: #### 5 7021-8 ####[facility] CENTERNCSTEFANIEA [id number] [place] [address] [place] RBC (Bld) [#/Vol] 3.65 10*6/uL Low 3.90-5.20 [facility] Comment on above: Order Comment: Speci men Type: BLOOD SPECIMENOrdering Facility: [facility] Address: [address] [place] [address] Performed By: #### 5 7021-8 ####[facility] CENTERNCBLUE MOUNTAIN HOSPITAL, INC[facility] [id number] [place] [address] [place] WBC (Bld) [#/Vol] 3.00 10*3/uL Low 3.70-11.00 [facility] Comment on above: Order Comment: Speci men Type: BLOOD SPECIMENOrdering Facility: [facility] Address: [address] [place] [address] Performed By: #### 5 7021-8 ####[facility] CENTERNCA [id number] [place] [address] [place] CNPNon 07-12-[address] [facility] CBC W Auto Differential pane l (Bld)on 07-07-2023 Basophils (Bld) [#/Vol] 0.03 10*3/uL Normal <0.11 [facility] Comment on above: Order Comment: Speci men Type: BLOOD SPECIMENOrdering Facility: [facility] Address: [address] [place] [address] Performed By: #### 5 7021-8 ####[facility] CENTERNCA [id number] [place] [address] [place] Basophils/100 WBC (Bld) 1.0 % Normal [facility] Comment on above: Order Comment: Speci men Type: BLOOD SPECIMENOrdering Facility: [facility] Address: [address] [place] [address] Performed By: #### 5 7021-8 ####[facility] CENTERNCBLUE MOUNTAIN HOSPITAL, INC[facility] [id number] [place] [address] [place] Differential cell count method Nom (Bld) Auto Normal [facility] Comment on above: Order Comment: Speci men Type: BLOOD SPECIMENOrdering Facility: [facility] Address: [address] [place] [address] Performed By: #### 5 7021-8 ####[facility] [id number] [place] [address] [place] Eosinophils (Bld) [#/Vol] 0.05 10*3/uL Normal <0.46 [facility] Comment on above: Order Comment: Speci men Type: BLOOD SPECIMENOrdering Facility: [facility] Address: [address] [place] [address] Performed By: #### 5 7021-8 ####[facility] [id number] [place] [address] [place] Eosinophils/100 WBC (Bld) 1.6 % Normal [facility] Comment on above: Order Comment: Speci men Type: BLOOD SPECIMENOrdering Facility: [facility] Address: [address] [place] [address] Performed By: #### 5 7021-8 ####[facility] [id number] [place] [address] [place] Erythrocyte distribution width (RBC) [Ratio] 15.3 % High 11.5-15.0 [facility] Comment on above: Order Comment: Speci men Type: BLOOD SPECIMENOrdering Facility: [facility] Address: [address] [place] [address] Performed By: #### 5 7021-8 ####[facility]FAIRHILLLIA [id number] [place] [address] [place] Hematocrit (Bld) [Volume fraction] 36.1 % Normal 36.0-46.0 [facility] Comment on above: Order Comment: Speci men Type: BLOOD SPECIMENOrdering Facility: [facility] Address: [address] [place] [address] Performed By: #### 5 7021-8 ####[facility] [id number] [place] [address] [place] Hemoglobin (Bld) [Mass/Vol] 11.6 g/dL Normal 11.5-15.5 [facility] Comment on above: Order Comment: Speci men Type: BLOOD SPECIMENOrdering Facility: [facility] Address: [address] [place] [address] Performed By: #### 5 7021-8 ####[facility] [id number] [place] [address] [place] Immature granulocytes (Bld) [#/Vol] 10*3/uL Normal <0.10 [facility] Comment on above: Order Comment: Speci men Type: BLOOD SPECIMENOrdering Facility: [facility] Address: [address] [place] [address] Performed By: #### 5 7021-8 ####[facility]FAIRHILLLIA [id number] [place] [address] [place] Immature granulocytes/100 WBC (Bld) 0.0 % Normal [facility] Comment on above: Order Comment: Speci men Type: BLOOD SPECIMENOrdering Facility: [facility] Address: [address] [place] [address] Performed By: #### 5 7021-8 ####[facility] [id number] [place] [address] [place] Lymphocytes (Bld) [#/Vol] 1.82 10*3/uL Normal 1.00-4.00 [facility] Comment on above: Order Comment: Speci men Type: BLOOD SPECIMENOrdering Facility: [facility] Address: [address] [place] [address] Performed By: #### 5 7021-8 ####[facility] [id number] [place] [address] [place] Lymphocytes/100 WBC (Bld) 58.7 % Normal [facility] Comment on above: Order Comment: Speci men Type: BLOOD SPECIMENOrdering Facility: [facility] Address: [address] [place] [address] Performed By: #### 5 7021-8 ####[facility] CENTERNCBLUE MOUNTAIN [facility]OSPITAL, INC[facility] [id number] [place] [address] [place] MCH (RBC) [Entitic mass] 31.7 pg Normal 26.0-34.0 [facility] Comment on above: Order Comment: Speci men Type: BLOOD SPECIMENOrdering Facility: [facility] Address: [address] [place] [address] Performed By: #### 5 7021-8 ####[facility] [id number] [place] [address] [place] MCHC (RBC) [Mass/Vol] 32.1 g/dL Normal 30.5-36.0 [facility] Comment on above: Order Comment: Speci men Type: BLOOD SPECIMENOrdering Facility: [facility] Address: [address] [place] [address] Performed By: #### 5 7021-8 ####[facility] CENTERNCBLUE [facility]OUNTAIN [facility]OSP[facility], INC[facility] [id number] [place] [address] [place] MCV (RBC) [Entitic vol] 98.6 fL Normal 80.0-100.0 [facility] Comment on above: Order Comment: Speci men Type: BLOOD SPECIMENOrdering Facility: [facility] Address: [address] [place] [address] Performed By: #### 5 7021-8 ####[facility] MGROMAIN [id number] [place] [address] [place] Monocytes (Bld) [#/Vol] 0.21 10*3/uL Normal <0.87 [facility] Comment on above: Order Comment: Speci men Type: BLOOD SPECIMENOrdering Facility: [facility] Address: [address] [place] [address] Performed By: #### 5 7021-8 ####[facility] [id number] [place] [address] [place] Monocytes/100 WBC (Bld) 6.8 % Normal [facility] Comment on above: Order Comment: Speci men Type: BLOOD SPECIMENOrdering Facility: [facility] Address: [address] [place] [address] Performed By: #### 5 7021-8 ####[facility] [id number] [place] [address] [place] Neutrophils (Bld) [#/Vol] 0.99 10*3/uL Low 1.45-7.50 [facility] Comment on above: Order Comment: Speci men Type: BLOOD SPECIMENOrdering Facility: [facility] Address: [address] [place] [address] Performed By: #### 5 7021-8 ####[facility] CENTERNCLIA [id number] [place] [address] [place] Neutrophils/100 WBC (Bld) 31.9 % Normal [facility] Comment on above: Order Comment: Speci men Type: BLOOD SPECIMENOrdering Facility: [facility] Address: [address] [place] [address] Performed By: #### 5 7021-8 ####[facility] MGWNCLIA [id number] [place] [address] [place] Nucleated RBC (Bld) [#/Vol] 10*3/uL Normal <0.01 [facility] Comment on above: Order Comment: Speci men Type: BLOOD SPECIMENOrdering Facility: [facility] Address: [address] [place] [address] Performed By: #### 5 7021-8 ####[facility]FAIRHILLLIA [id number] [place] [address] [place] Nucleated RBC/100 WBC (Bld) [Ratio] 0.0 /[address] [facility] Comment on above: Order Comment: Speci men Type: BLOOD SPECIMENOrdering Facility: [facility] Address: [address] [place] [address] Performed By: #### 5 7021-8 ####[facility] [id number] [place] [address] [place] Platelet mean volume (Bld) [Entitic vol] 9.5 fL Normal 9.0-12.7 [facility] Comment on above: Order Comment: Speci men Type: BLOOD SPECIMENOrdering Facility: [facility] Address: [address] [place] [address] Performed By: #### 5 7021-8 ####[facility] [id number] [place] [address] [place] Platelets (Bld) [#/Vol] 190 10*3/uL Normal 150-400 [facility] Comment on above: Order Comment: Speci men Type: BLOOD SPECIMENOrdering Facility: [facility] Address: [address] [place] [address] Performed By: #### 5 7021-8 ####[facility]FAIRHILLLIA [id number] [place] [address] [place] RBC (Bld) [#/Vol] 3.66 10*6/uL Low 3.90-5.20 [facility] Comment on above: Order Comment: Speci men Type: BLOOD SPECIMENOrdering Facility: [facility] Address: [address] [place] [address] Performed By: #### 5 7021-8 ####[facility]FAIRHILLLIA [id number] [place] [address] [place] WBC (Bld) [#/Vol] 3.10 10*3/uL Low 3.70-11.00 [facility] Comment on above: Order Comment: Speci men Type: BLOOD SPECIMENOrdering Facility: [facility] Address: [address] [place] [address] Performed By: #### 5 7021-8 ####[facility] [id number] [address] [place] CNOVSPon 07-07-[address] [facility] Cancer Ag125 SerPl-aCncon Cancer Ag 125 Qn 6 [arb'U]/mL Normal <39 [facility] Comment on above: Order Comment: Speci men Type: BLOOD SPECIMENOrdering Facility: [facility] Address: [address] [place] [address] Result Comment: CA 1 25 test methodology [...] (CA 125 II) [package insert V 1.0 Libyan]. [employer], [place], [place] (May 2015) Performed By: #### 1 0334-1 ####[facility] LABCLIA [id number] [place] [address] [place] Comprehensive [facility] 2000 panelon 07-07-2023 Albumin [Mass/Vol] 4.4 g/dL Normal 3.9-4.9 [facility] Comment on above: Order Comment: Speci men Type: BLOOD SPECIMENOrdering Facility: [facility] Address: [address] [place] [address] Performed By: #### 1 9123-9, 18722-2 ####[facility] PAULINE MILLTOWANYILIA [id number] [place] [address] [place] ALP [Catalytic activity/Vol] 93 U/L Normal 34-123 [facility] Comment on above: Order Comment: Speci men Type: BLOOD SPECIMENOrdering Facility: [facility] Address: [address] [place] [address] Performed By: #### 1 9123-9, 87498-6 ####[facility] CENTERANYILIA [id number] [place] [address] [place] ALT [Catalytic activity/Vol] 9 U/L Normal 7-38 [facility] Comment on above: Order Comment: Speci men Type: BLOOD SPECIMENOrdering Facility: [facility] Address: [address] [place] [address] Performed By: #### 1 9123-9, 44827-3 ####[facility] CENTERNCLIA [id number] [place] [address] [place] Anion gap [Moles/Vol] 9 mmol/L Normal 9-18 [facility] Comment on above: Order Comment: Speci men Type: BLOOD SPECIMENOrdering Facility: [facility] Address: [address] [place] [address] Performed By: #### 1 9123-9, 16135-1 ####[facility] RIVERSIDEWNCLIA [id number] [place] [address] [place] AST [Catalytic activity/Vol] 18 U/L Normal 13-35 [facility] Comment on above: Order Comment: Speci men Type: BLOOD SPECIMENOrdering Facility: [facility] Address: [address] [place] [address] Performed By: #### 1 9123-9, 23940-5 ####[facility] PAULINE HOLLIDAYAniaNCFARZANA [id number] [place] [address] [place] Bilirubin [Mass/Vol] 0.4 mg/dL Normal 0.2-1.3 [facility] Comment on above: Order Comment: Speci men Type: BLOOD SPECIMENOrdering Facility: [facility] Address: [address] [place] [address] Performed By: #### 1 9123-9, 26866-8 ####[facility] CENTERNCFARZANA [id number] [place] [address] [place] Calcium [Mass/Vol] 10.0 mg/dL Normal 8.5-10.2 [facility] Comment on above: Order Comment: Speci men Type: BLOOD SPECIMENOrdering Facility: [facility] Address: [address] [place] [address] Performed By: #### 1 9123-9, 51779-1 ####[facility] CENTERNCSTEFANIEA [id number] [place] [address] [place] Chloride [Moles/Vol] 103 mmol/L Normal 97-105 [facility] Comment on above: Order Comment: Speci men Type: BLOOD SPECIMENOrdering Facility: [facility] Address: [address] [place] [address] Performed By: #### 1 9123-9, 41956-2 ####[facility] CENTERNCSTEFANIEA [id number] [place] [address] [place] CO2 [Moles/Vol] 24 mmol/L Normal 22-30 [facility] Comment on above: Order Comment: Speci men Type: BLOOD SPECIMENOrdering Facility: [facility] Address: [address] [place] [address] Performed By: #### 1 9123-9, 41311-0 ####[facility] MGMARIONNCLIA [id number] [place] [address] [place] Creatinine [Mass/Vol] 0.64 mg/dL Normal 0.58-0.96 [facility] Comment on above: Order Comment: Speci men Type: BLOOD SPECIMENOrdering Facility: [facility] Address: [address] [place] [address] Performed By: #### 1 9123-9, 28040-1 ####[facility] CENTERNCLI [id number] [place] [address] [place] Creatinine and Glomerular filtration rate.predicted panel (S/P/Bld) 87 mL/min/1.73m??? Normal >=60 [facility] Comment on above: Order Comment: Zay sandoval Type: BLOOD SPECIMENOrdering Facility: [facility] Address: [address] [place] [address] Result Comment: Marlyn mated Glomerular Filtration Rate [...] actual GFR. Performed By: #### 1 9123-9, 71961-0 ####[facility]-FAIRHILLLIA [id number] [place] [address] [place] Glucose [Mass/Vol] 102 mg/dL High 74-99 [facility] Comment on above: Order Comment: Pratibhai men Type: BLOOD SPECIMENOrdering Facility: [facility] Address: [place] [address] Result Comment: The [place] [employer] (ADA) provides guidance for cutoff [...] Standards of Medical Care in Diabetes 2016, [place] [employer]. Diabetes Care. 2016.39(Suppl 1). Performed By: #### 1 9123-9, ####[facility] MILLWNCLIA [id number] [place] [address] [place] Potassium [Moles/Vol] 4.1 mmol/L Normal 3.7-5.1 [facility] Comment on above: Order Comment: Speci men Type: BLOOD SPECIMENOrdering Facility: [facility] Address: [address] [place] [address] Performed By: #### 1 9123-9, ####[facility]FAIRHILLLIA [id number] [place] [address] [place] Protein [Mass/Vol] 7.7 g/dL Normal 6.3-8.0 [facility] Comment on above: Order Comment: Speci men Type: BLOOD SPECIMENOrdering Facility: [facility] Address: [address] [place] [address] Performed By: #### 1 91239, ####[facility] CENTERNCLIA [id number] [place] [address] [place] Sodium [Moles/Vol] 136 mmol/L Normal 136-144 [facility] Comment on above: Order Comment: Speci men Type: BLOOD SPECIMENOrdering Facility: [facility] Address: [address] [place] [address] Performed By: #### 1 9123-9, ####[facility]FAIRHILLLIA [id number] [place] [address] [place] Urea nitrogen [Mass/Vol] 26 mg/dL High 7-21 [facility] Comment on above: Order Comment: Speci men Type: BLOOD SPECIMENOrdering Facility: [facility] Address: [address] [place] [address] Performed By: #### 1 9123-9, 69017-8 ####[facility] MILLWNCLIA [id number] [place] [address] [place] Magnesium SerPl-mCncon 07-07 Magnesium [Mass/Vol] 1.9 mg/dL Normal 1.7-2.3 [facility] Comment on above: Order Comment: Speci men Type: BLOOD SPECIMENOrdering Facility: [facility] Address: [address] [place] [address] Performed By: #### 1 9123-9, 13728-6 ####[facility]ILLLIA [id number] [place] [address] [place] CNPNon 06-17-[address] [facility] CNPNon 06-11-[address] [facility] Comprehensive metabolic 2000 panelon 06-10-2023 Albumin [Mass/Vol] 4.0 g/dL Normal 3.9-4.9 [facility] Comment on above: Order Comment: Speci men Type: BLOOD SPECIMENOrdering Facility: [facility] Address: [address] [place] [address] Performed By: #### 2 4323-8 ####[facility] CENTERNCLIA [id number] [place] [address] [place] ALP [Catalytic activity/Vol] 90 U/L Normal 34-123 [facility] Comment on above: Order Comment: Speci men Type: BLOOD SPECIMENOrdering Facility: [facility] Address: [address] [place] [address] Performed By: #### 2 4323-8 ####[facility] MILLTOWNCLIA [id number] [place] [address] [place] ALT [Catalytic activity/Vol] 8 U/L Normal 7-38 [facility] Comment on above: Order Comment: Speci men Type: BLOOD SPECIMENOrdering Facility: [facility] Address: [address] [place] [address] Performed By: #### 2 4323-8 ####[facility] MILLTOWNCLIA [id number] [place] [address] [place] Anion gap [Moles/Vol] 8 mmol/L Low 9-18 [facility] Comment on above: Order Comment: Speci men Type: BLOOD SPECIMENOrdering Facility: [facility] Address: [address] [place] [address] Performed By: #### 2 4323-8 ####[facility] CENTERNCLIA [id number] [place] [address] [place] AST [Catalytic activity/Vol] 15 U/L Normal 13-35 [facility] Comment on above: Order Comment: Speci men Type: BLOOD SPECIMENOrdering Facility: [facility] Address: [address] [place] [address] Performed By: #### 2 4323-8 ####[facility] RIVERSIDEWNCLIA [id number] [place] [address] [place] Bilirubin [Mass/Vol] 0.4 mg/dL Normal 0.2-1.3 [facility] Comment on above: Order Comment: Speci men Type: BLOOD SPECIMENOrdering Facility: [facility] Address: [address] [place] [address] Performed By: #### 2 4323-8 ####[facility] CENTERNCLIA [id number] [place] [address] [place] Calcium [Mass/Vol] 9.1 mg/dL Normal 8.5-10.2 [facility] Comment on above: Order Comment: Speci men Type: BLOOD SPECIMENOrdering Facility: [facility] Address: [address] [place] [address] Performed By: #### 2 4323-8 ####[facility] MILLTOWNCLIA [id number] [place] [address] [place] Chloride [Moles/Vol] 102 mmol/L Normal 97-105 [facility] Comment on above: Order Comment: Speci men Type: BLOOD SPECIMENOrdering Facility: [facility] Address: [address] [place] [address] Performed By: #### 2 4323-8 ####[facility] RIVERSIDEWNCLIA [id number] [place] [address] [place] CO2 [Moles/Vol] 27 mmol/L Normal 22-30 [facility] Comment on above: Order Comment: Speci men Type: BLOOD SPECIMENOrdering Facility: [facility] Address: [address] [place] [address] Performed By: #### 2 4323-8 ####[facility] CENTERNCLIA [id number] [place] [address] [place] Creatinine [Mass/Vol] 0.59 mg/dL Normal 0.58-0.96 [facility] Comment on above: Order Comment: Speci men Type: BLOOD SPECIMENOrdering Facility: [facility] Address: [address] [place] [address] Performed By: #### 2 4323-8 ####[facility] MILLWNCLIA [id number] [place] [address] [place] Creatinine and Glomerular filtration rate.predicted panel (S/P/Bld) 89 mL/min/1.73m??? Normal >=60 [facility] Comment on above: Order Comment: Speci men Type: BLOOD SPECIMENOrdering Facility: [facility] Address: [address] [place], [place] [id number] Result Comment: Marlyn mated Glomerular Filtration Rate [...] actual GFR. Performed By: #### 2 4323-8 ####[facility] [id number] [place] [address] [place] Glucose [Mass/Vol] 96 mg/dL Normal 74-99 [facility] Comment on above: Order Comment: Zay sandoval Type: BLOOD SPECIMENOrdering Facility: [facility] Address: [address] [place] [address] Result Comment: The [place] [employer] (ADA) provides guidance for cutoff [...] Standards of Medical Care in Diabetes 2016, [place] [employer]. Diabetes Care. 2016.39(Suppl 1). Performed By: #### 2 4323-8 ####[facility] [id number] [place] [address] [place] Potassium [Moles/Vol] 4.1 mmol/L Normal 3.7-5.1 [facility] Comment on above: Order Comment: Zay sandoval Type: BLOOD SPECIMENOrdering Facility: [facility] Address: [address] [place] [address] Performed By: #### 2 4323-8 ####[facility] [id number] [place] [address] [place] Protein [Mass/Vol] 6.9 g/dL Normal 6.3-8.0 [facility] Comment on above: Order Comment: Speci men Type: BLOOD SPECIMENOrdering Facility: [facility] Address: [address] [place] [address] Performed By: #### 2 4323-8 ####[facility] [id number] [place] [address] [place] Sodium [Moles/Vol] 137 mmol/L Normal 136-144 [facility] Comment on above: Order Comment: Speci men Type: BLOOD SPECIMENOrdering Facility: [facility] Address: [address] [place] [address] Performed By: #### 2 4323-8 ####[facility] CLINICDavid [id number] [place] [address] [place] Urea nitrogen [Mass/Vol] 21 mg/dL Normal 7-21 [facility] Comment on above: Order Comment: Speci men Type: BLOOD SPECIMENOrdering Facility: [facility] Address: [address] [place] [address] Performed By: #### 2 4323-8 ####[facility]FA[facility]ILLLI [id number] [place] [address] [place] CNPNon 06-07-[address] [facility] CNPNon 06-04-[address] [facility] CA 125 BLDon 06-02-2023 Cancer Ag 125 Qn 12 [arb'U]/mL <39 U/mL [facility] CBC W Auto Differential pane l (Bld)on 06-02-2023 Basophils (Bld) [#/Vol] 0.06 10*3/uL <0.11 k/uL [facility] Basophils/100 WBC (Bld) 1.3 % [facility] Differential cell count method Nom (Bld) Auto [facility] Eosinophils (Bld) [#/Vol] 0.16 10*3/uL <0.46 k/uL [facility] Eosinophils/100 WBC (Bld) 3.5 % [facility] Erythrocyte distribution width (RBC) [Ratio] 13.3 % 11.5 - 15.0 % [facility] Hematocrit (Bld) [Volume fraction] 39.7 % 36.0 - 46.0 % [facility] Hemoglobin (Bld) [Mass/Vol] 12.5 g/dL 11.5 - 15.5 g/dL [facility] Immature granulocytes (Bld) [#/Vol] <0.10 k/uL [facility] Immature granulocytes/100 WBC (Bld) 0.2 % [facility] Lymphocytes (Bld) [#/Vol] 1.77 10*3/uL 1.00 - 4.00 k/uL [facility] Lymphocytes/100 WBC (Bld) 38.3 % [facility] MCH (RBC) [Entitic mass] 30.9 pg 26.0 - 34.0 pg [facility] MCHC (RBC) [Mass/Vol] 31.5 g/dL 30.5 - 36.0 g/dL [facility] MCV (RBC) [Entitic vol] 98.3 fL 80.0 - 100.0 fL [facility] Monocytes (Bld) [#/Vol] 0.42 10*3/uL <0.87 k/uL [facility] Monocytes/100 WBC (Bld) 9.1 % [facility] Neutrophils (Bld) [#/Vol] 2.20 10*3/uL 1.45 - 7.50 k/uL [facility] Neutrophils/100 WBC (Bld) 47.6 % [facility] Nucleated RBC (Bld) [#/Vol] <0.01 k/uL [facility] Nucleated RBC/100 WBC (Bld) [Ratio] 0.0 /100 WBC [facility] Platelet mean volume (Bld) [Entitic vol] 9.4 fL 9.0 - 12.7 fL [facility] Platelets (Bld) [#/Vol] 262 10*3/uL 150 - 400 k/uL [facility] RBC (Bld) [#/Vol] 4.04 10*6/uL 3.90 - 5.20 m/uL [facility] WBC (Bld) [#/Vol] 4.62 10*3/uL 3.70 - 11.00 k/uL [facility] Basophils (Bld) [#/Vol] 0.06 10*3/uL Normal <0.11 [facility] Comment on above: Order Comment: Speci men Type: BLOOD SPECIMENOrdering Facility: [facility] Address: [address] [place] [address] Performed By: #### 5 7021-8 ####[facility] MILLWNCLIA [id number] [place] [address] [place] Basophils/100 WBC (Bld) 1.3 % Normal [facility] Comment on above: Order Comment: Speci men Type: BLOOD SPECIMENOrdering Facility: [facility] Address: [address] [place] [address] Performed By: #### 5 7021-8 ####[facility] [id number] [place] [address] [place] Differential cell count method Nom (Bld) Auto Normal [facility] Comment on above: Order Comment: Speci men Type: BLOOD SPECIMENOrdering Facility: [facility] Address: [address] [place] [address] Performed By: #### 5 7021-8 ####[facility]ILLLIA [id number] [place] [address] [place] Eosinophils (Bld) [#/Vol] 0.16 10*3/uL Normal <0.46 [facility] Comment on above: Order Comment: Speci men Type: BLOOD SPECIMENOrdering Facility: [facility] Address: [address] [place] [address] Performed By: #### 5 7021-8 ####[facility]ILLLIA [id number] [place] [address] [place] Eosinophils/100 WBC (Bld) 3.5 % Normal [facility] Comment on above: Order Comment: Speci men Type: BLOOD SPECIMENOrdering Facility: [facility] Address: [address] [place] [address] Performed By: #### 5 7021-8 ####[facility] MGROMAIN [id number] [place] [address] [place] Erythrocyte distribution width (RBC) [Ratio] 13.3 % Normal 11.5-15.0 [facility] Comment on above: Order Comment: Speci men Type: BLOOD SPECIMENOrdering Facility: [facility] Address: [address] [place] [address] Performed By: #### 5 7021-8 ####[facility] CENTERNCFARZANA [id number] [place] [address] [place] Hematocrit (Bld) [Volume fraction] 39.7 % Normal 36.0-46.0 [facility] Comment on above: Order Comment: Speci men Type: BLOOD SPECIMENOrdering Facility: [facility] Address: [address] [place] [address] Performed By: #### 5 7021-8 ####[facility]-FAIRHILLSTEFANIE [id number] [place] [address] [place] Hemoglobin (Bld) [Mass/Vol] 12.5 g/dL Normal 11.5-15.5 [facility] Comment on above: Order Comment: Speci men Type: BLOOD SPECIMENOrdering Facility: [facility] Address: [address] [place] [address] Performed By: #### 5 7021-8 ####[facility] CENTERNCLIA [id number] [place] [address] [place] Immature granulocytes (Bld) [#/Vol] 10*3/uL Normal <0.10 [facility] Comment on above: Order Comment: Speci men Type: BLOOD SPECIMENOrdering Facility: [facility] Address: [address] [place] [address] Performed By: #### 5 7021-8 ####[facility] CENTERWNCLIA [id number] [place] [address] [place] Immature granulocytes/100 WBC (Bld) 0.2 % Normal [facility] Comment on above: Order Comment: Speci men Type: BLOOD SPECIMENOrdering Facility: [facility] Address: [address] [place] [address] Performed By: #### 5 7021-8 ####[facility] [id number] [place] [address] [place] Lymphocytes (Bld) [#/Vol] 1.77 10*3/uL Normal 1.00-4.00 [facility] Comment on above: Order Comment: Speci men Type: BLOOD SPECIMENOrdering Facility: [facility] Address: [address] [place] [address] Performed By: #### 5 7021-8 ####[facility] [id number] [place] [address] [place] Lymphocytes/100 WBC (Bld) 38.3 % Normal [facility] Comment on above: Order Comment: Speci men Type: BLOOD SPECIMENOrdering Facility: [facility] Address: [address] [place] [address] Performed By: #### 5 7021-8 ####[facility] [id number] [place] [address] [place] MCH (RBC) [Entitic mass] 30.9 pg Normal 26.0-34.0 [facility] Comment on above: Order Comment: Speci men Type: BLOOD SPECIMENOrdering Facility: [facility] Address: [address] [place] [address] Performed By: #### 5 7021-8 ####[facility] CENTERNCLIA [id number] [place] [address] [place] MCHC (RBC) [Mass/Vol] 31.5 g/dL Normal 30.5-36.0 [facility] Comment on above: Order Comment: Speci men Type: BLOOD SPECIMENOrdering Facility: [facility] Address: [address] [place] [address] Performed By: #### 5 7021-8 ####[facility]ENTERNCBLUE [facility]OUNT[facility], [facility] [id number] [place] [address] [place] MCV (RBC) [Entitic vol] 98.3 fL Normal 80.0-100.0 [facility] Comment on above: Order Comment: Speci men Type: BLOOD SPECIMENOrdering Facility: [facility] Address: [address] [place] [address] Performed By: #### 5 7021-8 ####[facility] CENTERNCBLUE MOUNTAIN H[facility], INC[facility] [id number] [place] [address] [place] Monocytes (Bld) [#/Vol] 0.42 10*3/uL Normal <0.87 [facility] Comment on above: Order Comment: Speci men Type: BLOOD SPECIMENOrdering Facility: [facility] Address: [address] [place] [address] Performed By: #### 5 7021-8 ####[facility]ENTERNCBLUE [facility]OUNT[facility], [facility] [id number] [place] [address] [place] Monocytes/100 WBC (Bld) 9.1 % Normal [facility] Comment on above: Order Comment: Speci men Type: BLOOD SPECIMENOrdering Facility: [facility] Address: [address] [place] [address] Performed By: #### 5 7021-8 ####[facility] CENTERNCA [id number] [place] [address] [place] Neutrophils (Bld) [#/Vol] 2.20 10*3/uL Normal 1.45-7.50 [facility] Comment on above: Order Comment: Speci men Type: BLOOD SPECIMENOrdering Facility: [facility] Address: [address] [place] [address] Performed By: #### 5 7021-8 ####[facility] CENTERANYILIA [id number] [place] [address] [place] Neutrophils/100 WBC (Bld) 47.6 % Normal [facility] Comment on above: Order Comment: Speci men Type: BLOOD SPECIMENOrdering Facility: [facility] Address: [address] [place] [address] Performed By: #### 5 7021-8 ####[facility]FAIRHILLLIA [id number] [place] [address] [place] Nucleated RBC (Bld) [#/Vol] 10*3/uL Normal <0.01 [facility] Comment on above: Order Comment: Speci men Type: BLOOD SPECIMENOrdering Facility: [facility] Address: [address] [place] [address] Performed By: #### 5 7021-8 ####[facility]FA[facility]HILLLIA [id number] [place] [address] [place] Nucleated RBC/100 WBC (Bld) [Ratio] 0.0 /[address] [facility] Comment on above: Order Comment: Speci men Type: BLOOD SPECIMENOrdering Facility: [facility] Address: [address] [place] [address] Performed By: #### 5 7021-8 ####[facility]FAIRHILLLIA [id number] [place] [address] [place] Platelet mean volume (Bld) [Entitic vol] 9.4 fL Normal 9.0-12.7 [facility] Comment on above: Order Comment: Speci men Type: BLOOD SPECIMENOrdering Facility: [facility] Address: [address] [place] [address] Performed By: #### 5 7021-8 ####[facility]ILLLIA [id number] [place] [address] [place] Platelets (Bld) [#/Vol] 262 10*3/uL Normal 150-400 [facility] Comment on above: Order Comment: Speci men Type: BLOOD SPECIMENOrdering Facility: [facility] Address: [address] [place] [address] Performed By: #### 5 7021-8 ####[facility]-FAIRHILLFARZANA [id number] [place] [address] [place] RBC (Bld) [#/Vol] 4.04 10*6/uL Normal 3.90-5.20 [facility] Comment on above: Order Comment: Speci men Type: BLOOD SPECIMENOrdering Facility: [facility] Address: [address] [place] [address] Performed By: #### 5 7021-8 ####[facility] CLINICDavid [id number] [place] [address] [place] WBC (Bld) [#/Vol] 4.62 10*3/uL Normal 3.70-11.00 [facility] Comment on above: Order Comment: Speci men Type: BLOOD SPECIMENOrdering Facility: [facility] Address: [address] [place] [address] Performed By: #### 5 7021-8 ####[facility]FAIRHILLLIA [id number] [place] [address] [place] CNOVSPon 06-02-[address] [facility] CNPNon 06-02-[address] [facility] Cancer Ag125 SerPl-aCncon Cancer Ag 125 Qn 12 [arb'U]/mL Normal <39 [facility] Comment on above: Order Comment: Speci men Type: BLOOD SPECIMENOrdering Facility: [facility] Address: [address] [place] [address] Result Comment: CA 1 25 test methodology [...] (CA 125 II) [package insert V 1.0 [place]]. Juan Clink, [place], [place] (May 2015) Performed By: #### 1 0334-1 ####[facility] LABCLIA [id number] [address] [place] Comprehensive metabolic 2000 panelon 06-02-2023 Albumin [Mass/Vol] 4.3 g/dL 3.9 - 4.9 g/dL [facility] ALP [Catalytic activity/Vol] 87 U/L 34 - 123 U/L [facility] ALT [Catalytic activity/Vol] 9 U/L 7 - 38 U/L [facility] Anion gap [Moles/Vol] 11 mmol/L 9 - 18 mmol/L [facility] AST [Catalytic activity/Vol] 15 U/L 13 - 35 U/L [facility] Bilirubin [Mass/Vol] 0.2 mg/dL 0.2 - 1 .3 mg/dL [facility] Calcium [Mass/Vol] 9.4 mg/dL 8.5 - 10. 2 mg/dL [facility] Chloride [Moles/Vol] 101 mmol/L 97 - 10 5 mmol/L [facility] CO2 [Moles/Vol] 26 mmol/L 22 - 30 mmol/L [facility] Creatinine [Mass/Vol] 0.66 mg/dL 0.58 - 0.96 mg/dL [facility] Estimated Glomerular Filtration Rate 87 mL/min/1.73m >=60 mL/min/1.7 3m [facility] Glucose [Mass/Vol] 116 mg/dL High 74 - 99 mg/dL [facility] Potassium [Moles/Vol] 4.1 mmol/L 3.7 - 5.1 mmol/L [facility] Protein [Mass/Vol] 7.3 g/dL 6.3 - 8.0 g/dL [facility] Sodium [Moles/Vol] 138 mmol/L 136 - 144 mmol/L [facility] Urea nitrogen [Mass/Vol] 17 mg/dL 7 - 21 mg/dL [facility] Albumin [Mass/Vol] 4.3 g/dL Normal 3.9-4.9 [facility] Comment on above: Order Comment: Speci men Type: BLOOD SPECIMENOrdering Facility: [facility] Address: [address] [place] [address] Performed By: #### 1 9123-9, 53747-1 ####[facility] MILLTOWNCLIA [id number] [place] [address] [place] ALP [Catalytic activity/Vol] 87 U/L Normal 34-123 [facility] Comment on above: Order Comment: Speci men Type: BLOOD SPECIMENOrdering Facility: [facility] Address: [address] [place] [address] Performed By: #### 1 9123-9, 28460-6 ####[facility] CENTERNCLIA [id number] [place] [address] [place] ALT [Catalytic activity/Vol] 9 U/L Normal 7-38 [facility] Comment on above: Order Comment: Speci men Type: BLOOD SPECIMENOrdering Facility: [facility] Address: [address] [place] [address] Performed By: #### 1 9123-9, 02236-3 ####[facility]-FAIRHILLLIA [id number] [place] [address] [place] Anion gap [Moles/Vol] 11 mmol/L Normal 9-18 [facility] Comment on above: Order Comment: Speci men Type: BLOOD SPECIMENOrdering Facility: [facility] Address: [address] [place] [address] Performed By: #### 1 9123-9, 12202-1 ####[facility] CENTERNCLIA [id number] [place] [address] [place] AST [Catalytic activity/Vol] 15 U/L Normal 13-35 [facility] Comment on above: Order Comment: Speci men Type: BLOOD SPECIMENOrdering Facility: [facility] Address: [address] [place] [address] Performed By: #### 1 9123-9, 84587-9 ####[facility] CENTERNCLIA [id number] [place] [address] [place] Bilirubin [Mass/Vol] 0.2 mg/dL Normal 0.2-1.3 [facility] Comment on above: Order Comment: Speci men Type: BLOOD SPECIMENOrdering Facility: [facility] Address: [address] [place] [address] Performed By: #### 1 9123-9, ####[facility]ENTERNCBL[facility], [facility] [id number] [place] [address] [place] Calcium [Mass/Vol] 9.4 mg/dL Normal 8.5-10.2 [facility] Comment on above: Order Comment: Speci men Type: BLOOD SPECIMENOrdering Facility: [facility] Address: [address] [place] [address] Performed By: #### 1 9123-9, ####[facility] CENTERNCLIA [id number] [place] [address] [place] Chloride [Moles/Vol] 101 mmol/L Normal 97-105 [facility] Comment on above: Order Comment: Speci men Type: BLOOD SPECIMENOrdering Facility: [facility] Address: [address] [place] [address] Performed By: #### 1 9123-9, ####[facility] CENTERNCLIA [id number] [place] [address] [place] CO2 [Moles/Vol] 26 mmol/L Normal 22-30 [facility] Comment on above: Order Comment: Speci men Type: BLOOD SPECIMENOrdering Facility: [facility] Address: [address] [place] [address] Performed By: #### 1 9123-9, 61336-5 ####[facility] [id number] [place] [address] [place] Creatinine [Mass/Vol] 0.66 mg/dL Normal 0.58-0.96 [facility] Comment on above: Order Comment: Speci men Type: BLOOD SPECIMENOrdering Facility: [facility] Address: [address] [place] [address] Performed By: #### 1 9123-9, 68342-2 ####[facility] [id number] [place] [address] [place] Creatinine and Glomerular filtration rate.predicted panel (S/P/Bld) 87 mL/min/1.73m??? Normal >=60 [facility] Comment on above: Order Comment: Zay sandoval Type: BLOOD SPECIMENOrdering Facility: [facility] Address: [address] [place] [address] Result Comment: Marlyn mated Glomerular Filtration Rate [...] actual GFR. Performed By: #### 1 9123-9, 89819-4 ####[facility] [id number] [place] [address] [place] Glucose [Mass/Vol] 116 mg/dL High 74-99 [facility] Comment on above: Order Comment: Speci men Type: BLOOD SPECIMENOrdering Facility: [facility] Address: [address] [place] [address] Result Comment: The [place] Diabetes Association (ADA) provides guidance for cutoff [...] Standards of Medical Care in Diabetes 2016, [place] [employer]. Diabetes Care. 2016.39(Suppl 1). Performed By: #### 1 9123-9, 17726-3 ####[facility] MILLTOWNCLIA [id number] [place] [address] [place] Potassium [Moles/Vol] 4.1 mmol/L Normal 3.7-5.1 [facility] Comment on above: Order Comment: Speci men Type: BLOOD SPECIMENOrdering Facility: [facility] Address: [address] [place] [address] Performed By: #### 1 9123-9, ####[facility] MILLTOWNCLIA [id number] [place] [address] [place] Protein [Mass/Vol] 7.3 g/dL Normal 6.3-8.0 [facility] Comment on above: Order Comment: Speci men Type: BLOOD SPECIMENOrdering Facility: [facility] Address: [address] [place] [address] Performed By: #### 1 91239, ####[facility] MILLTOWNCLIA [id number] [place] [address] [place] Sodium [Moles/Vol] 138 mmol/L Normal 136-144 [facility] Comment on above: Order Comment: Speci men Type: BLOOD SPECIMENOrdering Facility: [facility] Address: [address] [place] [address] Performed By: #### 1 9123-9, ####[facility] MILLTOWNCLIA [id number] [place] [address] [place] Urea nitrogen [Mass/Vol] 17 mg/dL Normal 7-21 [facility] Comment on above: Order Comment: Speci men Type: BLOOD SPECIMENOrdering Facility: [facility] Address: [address] [place] [address] Performed By: #### 1 9123-9, 96021-4 ####[facility] [id number] [place] [address] [place] HBV core Ab Ser Qlon 023 HBV core Ab Ql (S) Negative Normal Negative [facility] Comment on above: Order Comment: Speci men Type: BLOOD SPECIMENOrdering Facility: [facility] Address: [address] [place] [address] Result Comment: No e vidence of current or past infection with Hepatitis B virus. Should recent infection be suspected, repeat testing may be considered 3-4 weeks after this draw. Performed By: #### 5 195-3, 87281-2, 69648-3 ####[facility] LABCLIA [id number] [address] [place] HBV surface Ab Ql (S)on 05-10 HBV surface Ab Qn (S) <8.00 Normal [facility] Comment on above: Order Comment: Speci men Type: BLOOD SPECIMENOrdering Facility: [facility] Address: [address] [place] [address] Result Comment: <8 m IU/mL: No serological evidence of immunity to Hepatitis B Virus.>/= 8 to <12 mIU/mL: No serological evidence of immunity to Hepatitis B Virus.>/= 12 mIU/mL: Consistent with serological evidence of immunity to Hepatitis B Virus. Performed By: #### 5 195-3, 72123-9, 51766-6 ####[facility] LABCLIA [id number] [place] [id number] [place] HBV surface Ab Ser Qlon 05-10 HBV surface Ab Ql (S) Negative Normal [facility] Comment on above: Order Comment: Speci men Type: BLOOD SPECIMENOrdering Facility: [facility] Address: [address] [place] [address] Result Comment: No s erological evidence of immunity to Hepatitis B Virus. Performed By: #### 5 195-3, 28655-7, 05667-1 ####[facility] LABCLIA [id number] [place] [address] [place] HBV surface Ag Ser Qlon 05-10 HBV surface Ag Ql (S) Negative Normal Negative [facility] Comment on above: Order Comment: Speci men Type: BLOOD SPECIMENOrdering Facility: [facility] Address: [address] [place] [address] Performed By: #### 5 195-3, 18560-5, 38478-7 ####[facility] LABCLIA [id number] [place] [address] [place] HCV Ab Ser Qlon 06-02-2023 HCV Ab Ql (S) Negative Normal Negative [facility] Comment on above: Order Comment: Speci men Type: BLOOD SPECIMENOrdering Facility: [facility] Address: [address] [place] [address] Result Comment: The result suggests no evidence of active infection with Hepatitis C virus. Should recent infection be suspected, repeat testing may be considered 4-6 weeks after this draw. Performed By: #### 1 6128-1 ####[facility] LABIA [id number] [place] [address] [place] MAGNESIUM BLDon 06-02-2023 Magnesium [Mass/Vol] 2.1 mg/dL 1.7 - 2 .3 mg/dL [facility] Magnesium SerPl-mCncon 06-02 Magnesium [Mass/Vol] 2.1 mg/dL Normal 1.7-2.3 [facility] Comment on above: Order Comment: Speci men Type: BLOOD SPECIMENOrdering Facility: [facility] Address: [address] [place], [place] [address] [id number] Performed By: #### 1 9123-9, 98965-2 ####[facility] PAULINE LOPEZANNIA [id number] [place] [address] [place] CNOVon 05-17-[address] [facility] CNPNon 05-13-[address] [facility] CNPNon 05-11-[address] [facility] CNOVSPon 05-03-2023 CNOVSP Visit (SP) Office (G YNML) ----- STEFANO WASHINGTON ([id number]) 1940 F Date Time Provider Department 05/03/23 4:45 PM ELIOT CASTILLO GYN During your visit today, we recorded the following information about you: Temperature Pulse Blood pressure Weight 97.5 degrees 93/minute 144/66 72.9 kg Eliot Castillo MD 05/04/2023 4:46 AM Signed Gynecologic Oncology [facility] Postop Re: Stefano Washington [facility]#: [id number] Date of Service: 05/03/2023 Dr. Jacky Graves [...] fibroadipose tissue. (more content not included)... Normal [facility] 05-03-2023 [facility] Normal [facility] 04-21-2023 [facility] Telephone ([facility]) ----- STEFANO WASHINGTON ([id number]) 1940 F Date Time Provider Department 04/21/23 ANNMARIE MENDOZA [facility] During your visit today, we recorded the following information about you: Annmarie Mendoza APRN.[facility] 04/21/2023 4:[address] [facility] facility calling to report some redness mainly [...] currently scheduled with on 05/03. 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 CASE MANAGEM Normal [facility] CBC panel Auto (Bld)on 04-14 Erythrocyte distribution width (RBC) [Ratio] 13.2 % Normal 11.5-15.0 [facility] Comment on above: Order Comment: Speci men Type: BLOOD SPECIMENOrdering Facility: [facility] Address: [address] [place] [address] Performed By: #### 5 8410-2 ####[facility] LABCLIA [id number] [place] [address] [place] Hematocrit (Bld) [Volume fraction] 34.2 % Low 36.0-46.0 [facility] Comment on above: Order Comment: Speci men Type: BLOOD SPECIMENOrdering Facility: [facility] Address: [address] [place] [address] Performed By: #### 5 8410-2 ####[facility] LABCLIA [id number] [place] [address] [place] Hemoglobin (Bld) [Mass/Vol] 10.9 g/dL Low 11.5-15.5 [facility] Comment on above: Order Comment: Speci men Type: BLOOD SPECIMENOrdering Facility: [facility] Address: [address] [place] [address] Performed By: #### 5 8410-2 ####[facility] LABCLIA [id number] [place] [address] [place] MCH (RBC) [Entitic mass] 32.1 pg Normal 26.0-34.0 [facility] Comment on above: Order Comment: Speci men Type: BLOOD SPECIMENOrdering Facility: [facility] Address: [address] [place] [address] Performed By: #### 5 8410-2 ####[facility] [id number] [address] [place] MCHC (RBC) [Mass/Vol] 31.9 g/dL Normal 30.5-36.0 [facility] Comment on above: Order Comment: Speci men Type: BLOOD SPECIMENOrdering Facility: [facility] Address: [address] [place] [address] Performed By: #### 5 8410-2 ####[facility] [id number] [address] [place] MCV (RBC) [Entitic vol] 100.6 fL High 80.0-100.0 [facility] Comment on above: Order Comment: Speci men Type: BLOOD SPECIMENOrdering Facility: [facility] Address: [address] [place] [address] Performed By: #### 5 8410-2 ####[facility] [id number] [place] [address] [place] Nucleated RBC (Bld) [#/Vol] 10*3/uL Normal <0.01 [facility] Comment on above: Order Comment: Speci men Type: BLOOD SPECIMENOrdering Facility: [facility] Address: [address] [place], [place] [address] Performed By: #### 5 8410-2 ####[facility] [id number] [address] [place] Platelet mean volume (Bld) [Entitic vol] 9.8 fL Normal 9.0-12.7 [facility] Comment on above: Order Comment: Speci men Type: BLOOD SPECIMENOrdering Facility: [facility] Address: [address] [place], [place] [address] Performed By: #### 5 8410-2 ####[facility] LABCLIA [id number] [place] [address] [place] Platelets (Bld) [#/Vol] 315 10*3/uL Normal 150-400 [facility] Comment on above: Order Comment: Speci men Type: BLOOD SPECIMENOrdering Facility: [facility] Address: [address] Performed By: #### 5 8410-2 ####[facility] LABCLIA [id number] [place] [address] [place] RBC (Bld) [#/Vol] 3.40 10*6/uL Low 3.90-5.20 [facility] Comment on above: Order Comment: Speci men Type: BLOOD SPECIMENOrdering Facility: [facility] Address: [address] [place], [place] [address] Performed By: #### 5 8410-2 ####[facility] LABCLIA [id number] [place] [address] [place] WBC (Bld) [#/Vol] 5.40 10*3/uL Normal 3.70-11.00 [facility] Comment on above: Order Comment: Speci men Type: BLOOD SPECIMENOrdering Facility: [facility] Address: [address] [place], [place] [address] Performed By: #### 5 8410-2 ####[facility] LABCLIA [id number] [place] [address] [place] CNDSon 04-14-[address] [facility] Comprehensive metabolic 2000 panelon 04-14-2023 Albumin [Mass/Vol] 3.1 g/dL Low 3.9-4.9 [facility] Comment on above: Order Comment: Speci men Type: BLOOD SPECIMENOrdering Facility: [facility] Address: [address] [place], [place] [address] Performed By: #### 1 9123-9, 27702-06, 00513-8 ####[facility] LABCLIA [id number] [place] [address] [place] ALP [Catalytic activity/Vol] 63 U/L Normal 34-123 [facility] Comment on above: Order Comment: Speci men Type: BLOOD SPECIMENOrdering Facility: [facility] Address: [address] [place], [place] [address] Performed By: #### 1 9123-9, 27702-06, ####[facility] LABCLIA [id number] [place] [address] [place] ALT [Catalytic activity/Vol] 22 U/L Normal 7-38 [facility] Comment on above: Order Comment: Speci men Type: BLOOD SPECIMENOrdering Facility: [facility] Address: [address] [place], [place] [address] Performed By: #### 1 9123-9, 2776-08, ####[facility] LABCLIA [id number] [place] [address] [place] Anion gap [Moles/Vol] 12 mmol/L Normal 9-18 [facility] Comment on above: Order Comment: Speci men Type: BLOOD SPECIMENOrdering Facility: [facility] Address: [address] [place] [address] Performed By: #### 1 9123-9, 27702-06, 91701-8 ####[facility] LABCLIA [id number] [place] [address] [place] AST [Catalytic activity/Vol] 31 U/L Normal 13-35 [facility] Comment on above: Order Comment: Speci men Type: BLOOD SPECIMENOrdering Facility: [facility] Address: [address] [place] [address] Performed By: #### 1 9123-9, 27702-06, 96759-8 ####[facility] LABCLIA [id number] [place] [address] [place] Bilirubin [Mass/Vol] 0.4 mg/dL Normal 0.2-1.3 [facility] Comment on above: Order Comment: Speci men Type: BLOOD SPECIMENOrdering Facility: [facility] Address: [address] Performed By: #### 1 9123-9, 2777, ####[facility] LABCLIA [id number] [place] [address] [place] Calcium [Mass/Vol] 8.6 mg/dL Normal 8.5-10.2 [facility] Comment on above: Order Comment: Speci men Type: BLOOD SPECIMENOrdering Facility: [facility] Address: [address] [place], [place] [address] Performed By: #### 1 9123-9, 2776-08, ####[facility] LABCLIA [id number] [place] [address] [place] Chloride [Moles/Vol] 103 mmol/L Normal 97-105 [facility] Comment on above: Order Comment: Speci men Type: BLOOD SPECIMENOrdering Facility: [facility] Address: [address] [place] [address] Performed By: #### 1 9123-9, 27702-06, 34641-7 ####[facility] LABCLIA [id number] [place] [address] [place] CO2 [Moles/Vol] 22 mmol/L Normal 22-30 [facility] Comment on above: Order Comment: Speci men Type: BLOOD SPECIMENOrdering Facility: [facility] Address: [address] [place] [address] Performed By: #### 1 9123-9, 2777-, 45458-7 ####[facility] LABIA [id number] [place] [address] [place] Creatinine [Mass/Vol] 0.55 mg/dL Low 0.58-0.96 [facility] Comment on above: Order Comment: Speclisbeth men Type: BLOOD SPECIMENOrdering Facility: [facility] Address: [address] [place] [address] Performed By: #### 1 9123-9, 2777-, 89346-7 ####[facility] LABIA [id number] [address] [place] Creatinine and Glomerular filtration rate.predicted panel (S/P/Bld) 91 mL/min/1.73m??? Normal >=60 [facility] Comment on above: Order Comment: Zay sandoval Type: BLOOD SPECIMENOrdering Facility: [facility] Address: [address] [place] [address] Result Comment: Marlyn mated Glomerular Filtration Rate [...] GFR. Performed By: #### 1 9123-9, 2777-, 48413-1 ####[facility] LABIA [id number] [place] [address] [place] Glucose [Mass/Vol] 106 mg/dL High 74-99 [facility] Comment on above: Order Comment: Zay men Type: BLOOD SPECIMENOrdering Facility: [facility] Address: [address] [place] [address] Result Comment: The [place] Diabetes [employer] (ADA) provides guidance for cutoff [...] Standards of Medical Care in Diabetes 2016, [place] [employer]. Diabetes Care. 2016.39(Suppl 1). Performed By: #### 1 9123-9, 2777, 16330-3 ####[facility] LABIA [id number] [place] [address] [place] Potassium [Moles/Vol] 3.7 mmol/L Normal 3.7-5.1 [facility] Comment on above: Order Comment: Speci men Type: BLOOD SPECIMENOrdering Facility: [facility] Address: [address] [place] [address] Performed By: #### 1 9123-9, 2776-08, ####[facility] [id number] [place] [address] [place] Protein [Mass/Vol] 5.9 g/dL Low 6.3-8.0 [facility] Comment on above: Order Comment: Speci men Type: BLOOD SPECIMENOrdering Facility: [facility] Address: [address] [place] [address] Performed By: #### 1 9123-9, 27702-06, 19489-8 ####[facility] LABIA [id number] [place] [address] [place] Sodium [Moles/Vol] 137 mmol/L Normal 136-144 [facility] Comment on above: Order Comment: Speci men Type: BLOOD SPECIMENOrdering Facility: [facility] Address: [address] [place] [address] Performed By: #### 1 9123-9, 2777, 09972-2 ####[facility] LABCLIA [id number] [place] [address] [place] Urea nitrogen [Mass/Vol] 12 mg/dL Normal 7-21 [facility] Comment on above: Order Comment: Speci men Type: BLOOD SPECIMENOrdering Facility: [facility] Address: [address] [place] [address] Performed By: #### 1 9123-9, 27702-06, ####[facility] LABCLIA [id number] [place] [address] [place] ECG COMPLETEon 04-14-[address] [facility] HIGH SENSITIVITY TROPONIN To n 04-14-2023 Troponin T.cardiac High sensitivity method [Mass/Vol] 13 ng/L High <12 [facility] Comment on above: Order Comment: Speci men Type: BLOOD SPECIMENOrdering Facility: [facility] Address: [address] [place] [address] Result Comment: When assessing risk for acute [...] day MACE. Performed By: #### H STNT ####[facility] LABCLIA [id number] [place] [address] [place] Magnesium SerPl-mCncon 04-14 Magnesium [Mass/Vol] 1.9 mg/dL Normal 1.7-2.3 [facility] Comment on above: Order Comment: Speci men Type: BLOOD SPECIMENOrdering Facility: [facility] Address: [address] [place] [address] Performed By: #### 1 9123-9, 277-, 07456-3 ####[facility] LABCLIA [id number] [place] [address] [place] NURSING PROGon 04-14-[address] [facility] NUTRITIONon 04-14-[address] [facility] Phosphate SerPl-mCncon 04-14 Phosphate [Mass/Vol] 3.9 mg/dL Normal 2.7-4.8 [facility] Comment on above: Order Comment: Speci men Type: BLOOD SPECIMENOrdering Facility: [facility] Address: [address] [place] [address] Performed By: #### 1 9123-9, 2777-1, 21200-0 ####[facility] [id number] [address] [place] CASE MANAGEMon 04-13-[address] [facility] CASE MANAGEM Normal [facility] CBC panel Auto (Bld)on 04-13 Erythrocyte distribution width (RBC) [Ratio] 13.2 % Normal 11.5-15.0 [facility] Comment on above: Order Comment: Speci men Type: BLOOD SPECIMENOrdering Facility: [facility] Address: [address] [place] [address] Performed By: #### 5 8410-2 ####[facility]VER[facility] [id number] [place] [address] [place] Hematocrit (Bld) [Volume fraction] 35.6 % Low 36.0-46.0 [facility] Comment on above: Order Comment: Speci men Type: BLOOD SPECIMENOrdering Facility: [facility] Address: [address] [place] [address] Performed By: #### 5 8410-2 ####[facility] LABIA [id number] [place] [address] [place] Hemoglobin (Bld) [Mass/Vol] 11.2 g/dL Low 11.5-15.5 [facility] Comment on above: Order Comment: Speci men Type: BLOOD SPECIMENOrdering Facility: [facility] Address: [address] [place] [address] Performed By: #### 5 8410-2 ####[facility] LABIA [id number] [address] [place] OF [facility] MCH (RBC) [Entitic mass] 32.0 pg Normal 26.0-34.0 [facility] Comment on above: Order Comment: Speci men Type: BLOOD SPECIMENOrdering Facility: [facility] Address: [address] [place] [address] Performed By: #### 5 8410-2 ####[facility] LABIA [id number] [address] [place] MCHC (RBC) [Mass/Vol] 31.5 g/dL Normal 30.5-36.0 [facility] Comment on above: Order Comment: Speci men Type: BLOOD SPECIMENOrdering Facility: [facility] Address: [address] Performed By: #### 5 8410-2 ####[facility] LABIA [id number] [address] [place] MCV (RBC) [Entitic vol] 101.7 fL High 80.0-100.0 [facility] Comment on above: Order Comment: Speci men Type: BLOOD SPECIMENOrdering Facility: [facility] Address: [address] Performed By: #### 5 8410-2 ####[facility] [id number] [place] [address] [place] Nucleated RBC (Bld) [#/Vol] 10*3/uL Normal <0.01 [facility] Comment on above: Order Comment: Speci men Type: BLOOD SPECIMENOrdering Facility: [facility] Address: [address] Performed By: #### 5 8410-2 ####[facility] LABIA [id number] [place] [address] [place] Platelet mean volume (Bld) [Entitic vol] 10.4 fL Normal 9.0-12.7 [facility] Comment on above: Order Comment: Speci men Type: BLOOD SPECIMENOrdering Facility: [facility] Address: [address] [place], [place] [address] Performed By: #### 5 8410-2 ####[facility] LABIA [id number] [place] [address] [place] Platelets (Bld) [#/Vol] 327 10*3/uL Normal 150-400 [facility] Comment on above: Order Comment: Speci men Type: BLOOD SPECIMENOrdering Facility: [facility] Address: [address] [place], [place] [address] Performed By: #### 5 8410-2 ####[facility] LABIA [id number] [place] [address] [place] RBC (Bld) [#/Vol] 3.50 10*6/uL Low 3.90-5.20 [facility] Comment on above: Order Comment: Speci men Type: BLOOD SPECIMENOrdering Facility: [facility] Address: [address] [place], [place] [address] Performed By: #### 5 8410-2 ####[facility] LABIA [id number] [place] [address] [place] WBC (Bld) [#/Vol] 6.06 10*3/uL Normal 3.70-11.00 [facility] Comment on above: Order Comment: Speci men Type: BLOOD SPECIMENOrdering Facility: [facility] Address: [address] [place], [place] [address] Performed By: #### 5 8410-2 ####[facility] LABIA [id number] [place] [address] [place] Comprehensive metabolic 2000 panelon 04-13-2023 Albumin [Mass/Vol] 3.5 g/dL Low 3.9-4.9 [facility] Comment on above: Order Comment: Speci men Type: BLOOD SPECIMENOrdering Facility: [facility] Address: [address] [place] [address] Performed By: #### 2 4323-8, 33071-6, 2776- ####[facility] LABCLIA [id number] [place] [address] [place] ALP [Catalytic activity/Vol] 63 U/L Normal 34-123 [facility] Comment on above: Order Comment: Speci men Type: BLOOD SPECIMENOrdering Facility: [facility] Address: [address] [place] [address] Performed By: #### 2 4323-8, , 2776- ####[facility] [facility] [id number] [address] [place] ALT [Catalytic activity/Vol] 14 U/L Normal 7-38 [facility] Comment on above: Order Comment: Speci men Type: BLOOD SPECIMENOrdering Facility: [facility] Address: [address] [place] [address] Performed By: #### 2 4323-8, , 2776- ####[facility]CLIA [id number] [place] [address] [place] Anion gap [Moles/Vol] 11 mmol/L Normal 9-18 [facility] Comment on above: Order Comment: Speci men Type: BLOOD SPECIMENOrdering Facility: [facility] Address: [address] [place], [place] [id number] Performed By: #### 2 4323-8, 94591-4, 2776- ####[facility] [id number] [place] [address] [place] AST [Catalytic activity/Vol] 23 U/L Normal 13-35 [facility] Comment on above: Order Comment: Speci men Type: BLOOD SPECIMENOrdering Facility: [facility] Address: [address] [place] [address] Performed By: #### 2 4323-8, 76114-5, 2776-08 ####[facility]CL[facility] [id number] [place] [address] [place] Bilirubin [Mass/Vol] 0.6 mg/dL Normal 0.2-1.3 [facility] Comment on above: Order Comment: Speci men Type: BLOOD SPECIMENOrdering Facility: [facility] Address: [address] [place] [address] Performed By: #### 2 4323-8, , 2776-08 ####[facility] [id number] [place] [address] [place] Calcium [Mass/Vol] 8.9 mg/dL Normal 8.5-10.2 [facility] Comment on above: Order Comment: Speci men Type: BLOOD SPECIMENOrdering Facility: [facility] Address: [address] [place], [place] [id number] Performed By: #### 2 4323-8, , 2776-08 ####[facility]CL[facility] [id number] [place] [address] [place] Chloride [Moles/Vol] 103 mmol/L Normal 97-105 [facility] Comment on above: Order Comment: Speci men Type: BLOOD SPECIMENOrdering Facility: [facility] Address: [address] [place], [place] [id number] Performed By: #### 2 4323-8, 74701-4, 2776-08 ####[facility] [id number] [place] [address] [place] CO2 [Moles/Vol] 26 mmol/L Normal 22-30 [facility] Comment on above: Order Comment: Speci men Type: BLOOD SPECIMENOrdering Facility: [facility] Address: [address] [place] [address] Performed By: #### 2 4323-8, , 2776-08 ####[facility] [id number] [place] [address] [place] Creatinine [Mass/Vol] 0.64 mg/dL Normal 0.58-0.96 [facility] Comment on above: Order Comment: Speci men Type: BLOOD SPECIMENOrdering Facility: [facility] Address: [address] [place] [address] Performed By: #### 2 4323-8, , 2776-08 ####[facility] [id number] [place] [address] [place] Creatinine and Glomerular filtration rate.predicted panel (S/P/Bld) 87 mL/min/1.73m??? Normal >=60 [facility] Comment on above: Order Comment: Zay sandoval Type: BLOOD SPECIMENOrdering Facility: [facility] Address: [address] [place] [address] Result Comment: Marlyn mated Glomerular Filtration Rate [...] Performed By: #### 2 4323-8, , 2776-08 ####[facility] [id number] [place] [address] [place] Glucose [Mass/Vol] 93 mg/dL Normal 74-99 [facility] Comment on above: Order Comment: Pratibhai men Type: BLOOD SPECIMENOrdering Facility: [facility] Address: [address] [phone] Result Comment: The [place] [employer] (ADA) provides guidance for cutoff [...] Standards of Medical Care in Diabetes 2016, [place] [employer]. Diabetes Care. 2016.39(Suppl 1). Performed By: #### 2 4323-8, , 2776-08 ####[facility] [id number] [place] [address] [place] Potassium [Moles/Vol] 4.1 mmol/L Normal 3.7-5.1 [facility] Comment on above: Order Comment: Speci men Type: BLOOD SPECIMENOrdering Facility: [facility] Address: [address] [phone] Performed By: #### 2 4323-8, , 2776-08 ####[facility]CL[facility] [id number] [place] [address] [place] Protein [Mass/Vol] 6.4 g/dL Normal 6.3-8.0 [facility] Comment on above: Order Comment: Speci men Type: BLOOD SPECIMENOrdering Facility: [facility] Address: [address] [phone] Performed By: #### 2 4323-8, , 2776-08 ####[facility]CLIA [id number] [place] [id number] [place] Sodium [Moles/Vol] 140 mmol/L Normal 136-144 [facility] Comment on above: Order Comment: Speci men Type: BLOOD SPECIMENOrdering Facility: [facility] Address: [address] [place] [address] Performed By: #### 2 4323-8, , 2776-08 ####[facility]CL[facility] [id number] [place] [address] [place] Urea nitrogen [Mass/Vol] 10 mg/dL Normal 7-21 [facility] Comment on above: Order Comment: Speci men Type: BLOOD SPECIMENOrdering Facility: [facility] Address: [address] [place], [place] [id number] Performed By: #### 2 4323-8, , 2776-08 ####[facility]CL[facility] [id number] [place] [address] [place] Magnesium SerPl-ncon 04-13 Magnesium [Mass/Vol] 2.0 mg/dL Normal 1.7-2.3 [facility] Comment on above: Order Comment: Speci men Type: BLOOD SPECIMENOrdering Facility: [facility] Address: [address] [place] [address] Performed By: #### 2 4323-8, , 2776-08 ####[facility] [id number] [place] [address] [place] Phosphate SerPl-mCncon 04-13 Phosphate [Mass/Vol] 3.5 mg/dL Normal 2.7-4.8 [facility] Comment on above: Order Comment: Speci men Type: BLOOD SPECIMENOrdering Facility: [facility] Address: [address] [place], [place] [id number] Performed By: #### 2 4323-8, , 2776-08 ####[facility]CL[facility] [id number] [place] [address] [place] THERAPY NTon 04-13-[address] [facility] CBC panel Auto (Bld)on 04-12 Erythrocyte distribution width (RBC) [Ratio] 13.2 % Normal 11.5-15.0 [facility] Comment on above: Order Comment: Speci men Type: BLOOD SPECIMENOrdering Facility: [facility] Address: [address] [place] [address] Performed By: #### 5 8410-2 ####[facility] LABIA [id number] [address] [facility] Hematocrit (Bld) [Volume fraction] 33.4 % Low 36.0-46.0 [facility] Comment on above: Order Comment: Speci men Type: BLOOD SPECIMENOrdering Facility: [facility] Address: [address] [place] [address] Performed By: #### 5 8410-2 ####[facility]IA [id number] [address] [facility] Hemoglobin (Bld) [Mass/Vol] 10.8 g/dL Low 11.5-15.5 [facility] Comment on above: Order Comment: Speci men Type: BLOOD SPECIMENOrdering Facility: [facility] Address: [address] [place] [address] Performed By: #### 5 8410-2 ####[facility]IA [id number] [place] [address] [place] MCH (RBC) [Entitic mass] 32.8 pg Normal 26.0-34.0 [facility] Comment on above: Order Comment: Speci men Type: BLOOD SPECIMENOrdering Facility: [facility] Address: [address] [place] [address] Performed By: #### 5 8410-2 ####[facility]IA [id number] [address] [place] MCHC (RBC) [Mass/Vol] 32.3 g/dL Normal 30.5-36.0 [facility] Comment on above: Order Comment: Speci men Type: BLOOD SPECIMENOrdering Facility: [facility] Address: [address] Performed By: #### 5 8410-2 ####[facility] LABIA [id number] [place] [address] [place] MCV (RBC) [Entitic vol] 101.5 fL High 80.0-100.0 [facility] Comment on above: Order Comment: Speci men Type: BLOOD SPECIMENOrdering Facility: [facility] Address: [address] Performed By: #### 5 8410-2 ####[facility] [id number] [address] [place] Nucleated RBC (Bld) [#/Vol] 10*3/uL Normal <0.01 [facility] Comment on above: Order Comment: Speci men Type: BLOOD SPECIMENOrdering Facility: [facility] Address: [address] [place], [place] [id number] Performed By: #### 5 8410-2 ####[facility] [id number] [place] [address] [place] Platelet mean volume (Bld) [Entitic vol] 10.5 fL Normal 9.0-12.7 [facility] Comment on above: Order Comment: Speci men Type: BLOOD SPECIMENOrdering Facility: [facility] Address: [address] Performed By: #### 5 8410-2 ####[facility] LABIA [id number] [place] [address] [place] Platelets (Bld) [#/Vol] 305 10*3/uL Normal 150-400 [facility] Comment on above: Order Comment: Speci men Type: BLOOD SPECIMENOrdering Facility: [facility] Address: [address] [place], [place] [address] Performed By: #### 5 8410-2 ####[facility]CLIA [id number] [place] [address] [place] RBC (Bld) [#/Vol] 3.29 10*6/uL Low 3.90-5.20 [facility] Comment on above: Order Comment: Speci men Type: BLOOD SPECIMENOrdering Facility: [facility] Address: [address] Performed By: #### 5 8410-2 ####[facility] LABIA [id number] [address] [place] WBC (Bld) [#/Vol] 6.23 10*3/uL Normal 3.70-11.00 [facility] Comment on above: Order Comment: Speci men Type: BLOOD SPECIMENOrdering Facility: [facility] Address: [address] Performed By: #### 5 8410-2 ####[facility] LABIA [id number] [place] [address] [place] Comprehensive metabolic 2000 panelon 04-12-2023 Albumin [Mass/Vol] 3.3 g/dL Low 3.9-4.9 [facility] Comment on above: Order Comment: Speci men Type: BLOOD SPECIMENOrdering Facility: [facility] Address: [address] Performed By: #### 1 9123-9, 2777-1, 71261-6 ####[facility] LABIA [id number] [place] [address] [place] ALP [Catalytic activity/Vol] 58 U/L Normal 34-123 [facility] Comment on above: Order Comment: Speci men Type: BLOOD SPECIMENOrdering Facility: [facility] Address: [address] Performed By: #### 1 9123-9, 2776-08, 61135-4 ####[facility]CLIA [id number] [place] [address] [place] ALT [Catalytic activity/Vol] 9 U/L Normal 7-38 [facility] Comment on above: Order Comment: Speci men Type: BLOOD SPECIMENOrdering Facility: [facility] Address: [address] [place] [address] Performed By: #### 1 9123-9, 27702-06, ####[facility]CLIA [id number] [place] [address] [place] Anion gap [Moles/Vol] 12 mmol/L Normal 9-18 [facility] Comment on above: Order Comment: Speci men Type: BLOOD SPECIMENOrdering Facility: [facility] Address: [address] [place] [address] Performed By: #### 1 9123-9, 2776-08, ####[facility]CLIA [id number] [place] [address] [place] AST [Catalytic activity/Vol] 17 U/L Normal 13-35 [facility] Comment on above: Order Comment: Speci men Type: BLOOD SPECIMENOrdering Facility: [facility] Address: [address] [place] [address] Performed By: #### 1 9123-9, 2776-08, 94215-3 ####[facility]CL[facility] [id number] [place] [address] [place] Bilirubin [Mass/Vol] 0.6 mg/dL Normal 0.2-1.3 [facility] Comment on above: Order Comment: Speci men Type: BLOOD SPECIMENOrdering Facility: [facility] Address: [address] [place] [address] Performed By: #### 1 9123-9, 27702-06, 03165-3 ####[facility]CLIA [id number] [place] [address] [place] Calcium [Mass/Vol] 8.7 mg/dL Normal 8.5-10.2 [facility] Comment on above: Order Comment: Speci men Type: BLOOD SPECIMENOrdering Facility: [facility] Address: [address] [place] [address] Performed By: #### 1 9123-9, 2777, 40766-0 ####[facility]CLIA [id number] [place] [address] [place] Chloride [Moles/Vol] 101 mmol/L Normal 97-105 [facility] Comment on above: Order Comment: Speci men Type: BLOOD SPECIMENOrdering Facility: [facility] Address: [address] [place] [address] Performed By: #### 1 9123-9, 27702-06, 64501-9 ####[facility]CLIA [id number] [place] [address] [place] CO2 [Moles/Vol] 26 mmol/L Normal 22-30 [facility] Comment on above: Order Comment: Speci men Type: BLOOD SPECIMENOrdering Facility: [facility] Address: [address] [place] [address] Performed By: #### 1 9123-9, 27702-06, 87013-5 ####[facility]CLIA [id number] [place] [address] [place] Creatinine [Mass/Vol] 0.47 mg/dL Low 0.58-0.96 [facility] Comment on above: Order Comment: Speci men Type: BLOOD SPECIMENOrdering Facility: [facility] Address: [address] [place] [address] Performed By: #### 1 9123-9, 2777-, 49192-0 ####[facility] LABCLIA [id number] [address] Creatinine and Glomerular filtration rate.predicted panel (S/P/Bld) 94 mL/min/1.73m??? Normal >=60 [facility] Comment on above: Order Comment: Zay sandoval Type: BLOOD SPECIMENOrdering Facility: [facility] Address: [address] [place] [address] Result Comment: Marlyn mated Glomerular Filtration Rate [...] GFR. Performed By: #### 1 9123-9, 2777-1, 35668-7 ####[facility] LABCLIA [id number] [address] [place] [facility] Glucose [Mass/Vol] 89 mg/dL Normal 74-99 [facility] Comment on above: Order Comment: Zay sandoval Type: BLOOD SPECIMENOrdering Facility: [facility] Address: [address] [place] [address] Result Comment: The [place] [employer] (ADA) provides guidance for cutoff [...] Standards of Medical Care in Diabetes 2016, [place] [employer]. Diabetes Care. 2016.39(Suppl 1). Performed By: #### 1 9123-9, 2777-1, 59814-8 ####[facility] LABCLIA [id number] [place] [id number] [place] Potassium [Moles/Vol] 3.4 mmol/L Low 3.7-5.1 [facility] Comment on above: Order Comment: Speci men Type: BLOOD SPECIMENOrdering Facility: [facility] Address: [address] [place] [address] Performed By: #### 1 9123-9, 277-1, 70003-8 ####[facility] LABCLIA [id number] [place] [address] [place] Protein [Mass/Vol] 6.1 g/dL Low 6.3-8.0 [facility] Comment on above: Order Comment: Speci men Type: BLOOD SPECIMENOrdering Facility: [facility] Address: [address] [place] [address] Performed By: #### 1 9123-9, 2776-08, 98932-0 ####[facility] LABCLIA [id number] [place] [address] [place] Sodium [Moles/Vol] 139 mmol/L Normal 136-144 [facility] Comment on above: Order Comment: Speci men Type: BLOOD SPECIMENOrdering Facility: [facility] Address: [address] [place], [place] [id number] Performed By: #### 1 9123-9, 27702-06, 04901-8 ####[facility] LABCLIA [id number] [place] [address] [place] Urea nitrogen [Mass/Vol] 7 mg/dL Normal 7-21 [facility] Comment on above: Order Comment: Speci men Type: BLOOD SPECIMENOrdering Facility: [facility] Address: [address] [place], [place] [id number] Performed By: #### 1 9123-9, 27702-06, 68167-7 ####[facility] LABCLIA [id number] [place] [id number] [place] Magnesium SerPl-mCncon 04-12 Magnesium [Mass/Vol] 2.0 mg/dL Normal 1.7-2.3 [facility] Comment on above: Order Comment: Speci men Type: BLOOD SPECIMENOrdering Facility: [facility] Address: [address] [place] [address] Performed By: #### 1 9123-9, 2777-1, 04445-1 ####[facility] LABCLIA [id number] [place] [address] [place] Phosphate SerPl-mCncon 04-12 Phosphate [Mass/Vol] 3.2 mg/dL Normal 2.7-4.8 [facility] Comment on above: Order Comment: Speci men Type: BLOOD SPECIMENOrdering Facility: [facility] Address: [address] [place] [address] Performed By: #### 1 9123-9, 2777-1, 49352-9 ####[facility] LABIA [id number] [place] [address] [place] THERAPY NTon 04-12-[address] [facility] CASE MANAGEMon 04-11-[address] [facility] CBC panel Auto (Bld)on 04-11 Erythrocyte distribution width (RBC) [Ratio] 13.2 % Normal 11.5-15.0 [facility] Comment on above: Order Comment: Speci men Type: BLOOD SPECIMENOrdering Facility: [facility] Address: [address] [place] [address] Performed By: #### 5 8410-2 ####[facility] LABIA [id number] [place] [address] [place] Hematocrit (Bld) [Volume fraction] 34.2 % Low 36.0-46.0 [facility] Comment on above: Order Comment: Speci men Type: BLOOD SPECIMENOrdering Facility: [facility] Address: [address] [place] [address] Performed By: #### 5 8410-2 ####[facility] LABIA [id number] [address] [place] Hemoglobin (Bld) [Mass/Vol] 10.7 g/dL Low 11.5-15.5 [facility] Comment on above: Order Comment: Speci men Type: BLOOD SPECIMENOrdering Facility: [facility] Address: [address] [place], [place] [address] Performed By: #### 5 8410-2 ####[facility] [id number] [place] [address] [place] MCH (RBC) [Entitic mass] 32.1 pg Normal 26.0-34.0 [facility] Comment on above: Order Comment: Speci men Type: BLOOD SPECIMENOrdering Facility: [facility] Address: [address] [place], [place] [address] Performed By: #### 5 8410-2 ####[facility] [id number] [address] [place] MCHC (RBC) [Mass/Vol] 31.3 g/dL Normal 30.5-36.0 [facility] Comment on above: Order Comment: Speci men Type: BLOOD SPECIMENOrdering Facility: [facility] Address: [address] [place], [place] [address] Performed By: #### 5 8410-2 ####[facility] [id number] [address] [place] MCV (RBC) [Entitic vol] 102.7 fL High 80.0-100.0 [facility] Comment on above: Order Comment: Speci men Type: BLOOD SPECIMENOrdering Facility: [facility] Address: [address] [place], [place] [address] Performed By: #### 5 8410-2 ####[facility] [id number] [id number] [address] [place] Nucleated RBC (Bld) [#/Vol] 10*3/uL Normal <0.01 [facility] Comment on above: Order Comment: Speci men Type: BLOOD SPECIMENOrdering Facility: [facility] Address: [address] [place], [place] [address] Performed By: #### 5 8410-2 ####[facility] LABIA [id number] [place] [address] [place] Platelet mean volume (Bld) [Entitic vol] 10.5 fL Normal 9.0-12.7 [facility] Comment on above: Order Comment: Speci men Type: BLOOD SPECIMENOrdering Facility: [facility] Address: [address] [place], [place] [address] Performed By: #### 5 8410-2 ####[facility] LABCLIA [id number] [place] [address] [place] Platelets (Bld) [#/Vol] 267 10*3/uL Normal 150-400 [facility] Comment on above: Order Comment: Speci men Type: BLOOD SPECIMENOrdering Facility: [facility] Address: [address] [place], [place] [address] Performed By: #### 5 8410-2 ####[facility] LABIA [id number] [place] [address] [place] RBC (Bld) [#/Vol] 3.33 10*6/uL Low 3.90-5.20 [facility] Comment on above: Order Comment: Speci men Type: BLOOD SPECIMENOrdering Facility: [facility] Address: [address] [place], [place] [address] Performed By: #### 5 8410-2 ####[facility] LABCLIA [id number] [place] [address] [place] WBC (Bld) [#/Vol] 5.53 10*3/uL Normal 3.70-11.00 [facility] Comment on above: Order Comment: Speci men Type: BLOOD SPECIMENOrdering Facility: [facility] Address: [address] [place] [address] Performed By: #### 5 8410-2 ####[facility] LABCLIA [id number] [place] [address] [place] Comprehensive metabolic 2000 panelon 04-11-2023 Albumin [Mass/Vol] 3.3 g/dL Low 3.9-4.9 [facility] Comment on above: Order Comment: Speci men Type: BLOOD SPECIMENOrdering Facility: [facility] Address: [address] [place] [address] Performed By: #### 1 9123-9, 30634-9, 2777-1 ####[facility] LABIA [id number] [place] [address] [place] ALP [Catalytic activity/Vol] 59 U/L Normal 34-123 [facility] Comment on above: Order Comment: Speci men Type: BLOOD SPECIMENOrdering Facility: [facility] Address: [address] [place] [address] Performed By: #### 1 9123-9, 27162-8, 2777-1 ####[facility] LABIA [id number] [place] [address] [place] ALT [Catalytic activity/Vol] 9 U/L Normal 7-38 [facility] Comment on above: Order Comment: Speci men Type: BLOOD SPECIMENOrdering Facility: [facility] Address: [address] [place] [address] Performed By: #### 1 9123-9, 64190-5, 2777-1 ####[facility] LABIA [id number] [place] [address] [place] Anion gap [Moles/Vol] 12 mmol/L Normal 9-18 [facility] Comment on above: Order Comment: Speci men Type: BLOOD SPECIMENOrdering Facility: [facility] Address: [address] [place] [address] Performed By: #### 1 9123-9, 00845-7, 277- ####[facility] LABCLIA [id number] [place] [address] [place] AST [Catalytic activity/Vol] 15 U/L Normal 13-35 [facility] Comment on above: Order Comment: Speci men Type: BLOOD SPECIMENOrdering Facility: [facility] Address: [address] Performed By: #### 1 9123-9, 17495-4, 277- ####[facility] LABCLIA [id number] [place] [address] [place] Bilirubin [Mass/Vol] 0.6 mg/dL Normal 0.2-1.3 [facility] Comment on above: Order Comment: Speci men Type: BLOOD SPECIMENOrdering Facility: [facility] Address: [address] [place], [place] [id number] Performed By: #### 1 9123-9, 36684-3, 2776-08 ####[facility] LABCLIA [id number] [place] [address] [place] Calcium [Mass/Vol] 8.8 mg/dL Normal 8.5-10.2 [facility] Comment on above: Order Comment: Speci men Type: BLOOD SPECIMENOrdering Facility: [facility] Address: [address] [place] [address] Performed By: #### 1 9123-9, 27866-3, 277- ####[facility] LABCLIA [id number] [place] [address] [place] Chloride [Moles/Vol] 103 mmol/L Normal 97-105 [facility] [facility] Comment on above: Order Comment: Speci men Type: BLOOD SPECIMENOrdering Facility: [facility] Address: [address] [address] Performed By: #### 1 9123-9, 21859-5, 27702-06 ####[facility] LABIA [id number] [place] [address] [place] CO2 [Moles/Vol] 25 mmol/L Normal 22-30 [facility] Comment on above: Order Comment: Speci men Type: BLOOD SPECIMENOrdering Facility: [facility] Address: [address] [address] Performed By: #### 1 9123-9, 05483-6, 2776-08 ####[facility] LABIA [id number] [place] [address] [place] Creatinine [Mass/Vol] 0.46 mg/dL Low 0.58-0.96 [facility] Comment on above: Order Comment: Speci men Type: BLOOD SPECIMENOrdering Facility: [facility] Address: [address] [place] [address] Performed By: #### 1 9123-9, , 2776-08 ####[facility] LABIA [id number] [address] [place] Creatinine and Glomerular filtration rate.predicted panel (S/P/Bld) 94 mL/min/1.73m??? Normal >=60 [facility] Comment on above: Order Comment: Speci men Type: BLOOD SPECIMENOrdering Facility: [facility] Address: [address] [place] [address] Result Comment: Marlyn mated Glomerular Filtration Rate [...] actual GFR. Performed By: #### 1 9123-9, 81647-7, 2777-1 ####[facility] LABIA [id number] [place] [address] [place] Glucose [Mass/Vol] 102 mg/dL High 74-99 [facility] Comment on above: Order Comment: Speci men Type: BLOOD SPECIMENOrdering Facility: [facility] Address: [address] [place] [address] Result Comment: The [place] [employer] (ADA) provides guidance for cutoff [...] Standards of Medical Care in Diabetes 2016, [place] [employer]. Diabetes Care. 2016.39(Suppl 1). Performed By: #### 1 9123-9, 87297-4, 2777-1 ####[facility] LABIA [id number] [place] [address] [place] Potassium [Moles/Vol] 3.7 mmol/L Normal 3.7-5.1 [facility] Comment on above: Order Comment: Speci men Type: BLOOD SPECIMENOrdering Facility: [facility] Address: [address] [place], [place] [address] Performed By: #### 1 9123-9, 27756-2, 2777-1 ####[facility] LABIA [id number] [address] [id number] [place] Protein [Mass/Vol] 5.9 g/dL Low 6.3-8.0 [facility] Comment on above: Order Comment: Speci men Type: BLOOD SPECIMENOrdering Facility: [facility] Address: [address] [place] [address] Performed By: #### 1 9123-9, 12748-9, 2777-1 ####[facility] LABCLIA [id number] [place] [address] [place] Sodium [Moles/Vol] 140 mmol/L Normal 136-144 [facility] Comment on above: Order Comment: Speci men Type: BLOOD SPECIMENOrdering Facility: [facility] Address: [address] [place] [address] Performed By: #### 1 9123-9, 36389-7, 2777- ####[facility] LABIA [id number] [place] [address] [place] Urea nitrogen [Mass/Vol] 5 mg/dL Low 7-21 [facility] Comment on above: Order Comment: Speci men Type: BLOOD SPECIMENOrdering Facility: [facility] Address: [address] [place] [address] Performed By: #### 1 9123-9, 32675-8, 2777- ####[facility] LABIA [id number] [place] [address] [place] Magnesium SerPl-mCncon 04-11 Magnesium [Mass/Vol] 1.9 mg/dL Normal 1.7-2.3 [facility] Comment on above: Order Comment: Speci men Type: BLOOD SPECIMENOrdering Facility: [facility] Address: [address] [place] [address] Performed By: #### 1 9123-9, 96797-4, 2777 ####[facility] LABIA [id number] [place] [address] [place] Phosphate SerPl-mCncon 04-11 Phosphate [Mass/Vol] 3.3 mg/dL Normal 2.7-4.8 [facility] Comment on above: Order Comment: Speci men Type: BLOOD SPECIMENOrdering Facility: [facility] Address: [address] [place] [address] Performed By: #### 1 9123-9, 38128-0, 2777-1 ####[facility] LABIA [id number] [address] [place] CBC panel Auto (Bld)on 04-10 Erythrocyte distribution width (RBC) [Ratio] 13.6 % Normal 11.5-15.0 [facility] Comment on above: Order Comment: Speci men Type: BLOOD SPECIMENOrdering Facility: [facility] Address: [address] [address] Performed By: #### 5 8410-2 ####[facility] [id number] [address] [place] Hematocrit (Bld) [Volume fraction] 31.1 % Low 36.0-46.0 [facility] Comment on above: Order Comment: Speci men Type: BLOOD SPECIMENOrdering Facility: [facility] Address: [address] Performed By: #### 5 8410-2 ####[facility] [id number] [address] [place] Hemoglobin (Bld) [Mass/Vol] 9.8 g/dL Low 11.5-15.5 [facility] Comment on above: Order Comment: Speci men Type: BLOOD SPECIMENOrdering Facility: [facility] Address: [address] Performed By: #### 5 8410-2 ####[facility] LABIA [id number] [address] [place] MCH (RBC) [Entitic mass] 32.5 pg Normal 26.0-34.0 [facility] Comment on above: Order Comment: Speci men Type: BLOOD SPECIMENOrdering Facility: [facility] Address: [address] Performed By: #### 5 8410-2 ####[facility] LABIA [id number] [place] [address] [place] MCHC (RBC) [Mass/Vol] 31.5 g/dL Normal 30.5-36.0 [facility] Comment on above: Order Comment: Speci men Type: BLOOD SPECIMENOrdering Facility: [facility] Address: [address] [place], [place] [address] Performed By: #### 5 8410-2 ####[facility] [id number] [place] [address] [place] MCV (RBC) [Entitic vol] 103.0 fL High 80.0-100.0 [facility] Comment on above: Order Comment: Speci men Type: BLOOD SPECIMENOrdering Facility: [facility] Address: [address] [place] [address] Performed By: #### 5 8410-2 ####[facility] [id number] [place] [address] [place] Nucleated RBC (Bld) [#/Vol] 10*3/uL Normal <0.01 [facility] Comment on above: Order Comment: Speci men Type: BLOOD SPECIMENOrdering Facility: [facility] Address: [address] [place], [place] [address] Performed By: #### 5 8410-2 ####[facility] [id number] [place] [address] [place] Platelet mean volume (Bld) [Entitic vol] 10.5 fL Normal 9.0-12.7 [facility] Comment on above: Order Comment: Speci men Type: BLOOD SPECIMENOrdering Facility: [facility] Address: [address] [place], [place] [address] Performed By: #### 5 8410-2 ####[facility] [id number] [place] [address] [place] Platelets (Bld) [#/Vol] 231 10*3/uL Normal 150-400 [facility] Comment on above: Order Comment: Speci men Type: BLOOD SPECIMENOrdering Facility: [facility] Address: [address] [place] [address] Performed By: #### 5 8410-2 ####[facility] LABCLIA [id number] [place] [address] [place] RBC (Bld) [#/Vol] 3.02 10*6/uL Low 3.90-5.20 [facility] Comment on above: Order Comment: Speci men Type: BLOOD SPECIMENOrdering Facility: [facility] Address: [address] [place] [address] Performed By: #### 5 8410-2 ####[facility] LABCLIA [id number] [place] [address] [place] WBC (Bld) [#/Vol] 6.95 10*3/uL Normal 3.70-11.00 [facility] Comment on above: Order Comment: Speci men Type: BLOOD SPECIMENOrdering Facility: [facility] Address: [address] [place] [address] Performed By: #### 5 8410-2 ####[facility] LABCLIA [id number] [place] [address] [place] CHEST W IVCON PEon 2022 CT CHEST W IVCON PE Normal [facility] Comprehensive metabolic 2000 panelon 04-10-2023 Albumin [Mass/Vol] 3.2 g/dL Low 3.9-4.9 [facility] Comment on above: Order Comment: Speci men Type: BLOOD SPECIMENOrdering Facility: [facility] Address: [address] [place] [address] Performed By: #### 2 4323-8, 30274-8, 2777-1 ####[facility] LABCLIA [id number] [place] [address] [place] ALP [Catalytic activity/Vol] 51 U/L Normal 34-123 [facility] Comment on above: Order Comment: Speci men Type: BLOOD SPECIMENOrdering Facility: [facility] Address: [address] [place] [address] Performed By: #### 2 4323-8, 39611-2, 2776-08 ####[facility] LABCLIA [id number] [place] [address] [place] ALT [Catalytic activity/Vol] 9 U/L Normal 7-38 [facility] Comment on above: Order Comment: Speci men Type: BLOOD SPECIMENOrdering Facility: [facility] Address: [address] [place] [address] Performed By: #### 2 4323-8, , 2776-08 ####[facility] LABCLIA [id number] [place] [address] [place] Anion gap [Moles/Vol] 11 mmol/L Normal 9-18 [facility] Comment on above: Order Comment: Speci men Type: BLOOD SPECIMENOrdering Facility: [facility] Address: [address] [place] [address] Performed By: #### 2 4323-8, , 2776-08 ####[facility] LABCLIA [id number] [place] [address] [place] AST [Catalytic activity/Vol] 19 U/L Normal 13-35 [facility] Comment on above: Order Comment: Speci men Type: BLOOD SPECIMENOrdering Facility: [facility] Address: [address] [place] [address] Performed By: #### 2 4323-8, , 2776-08 ####[facility] LABCLIA [id number] [place] [address] [place] Bilirubin [Mass/Vol] 0.6 mg/dL Normal 0.2-1.3 [facility] Comment on above: Order Comment: Speci men Type: BLOOD SPECIMENOrdering Facility: [facility] Address: [address] [address] Performed By: #### 2 4323-8, , 2776-08 ####[facility] LABCLIA [id number] [place] [address] [place] Calcium [Mass/Vol] 8.9 mg/dL Normal 8.5-10.2 [facility] Comment on above: Order Comment: Speci men Type: BLOOD SPECIMENOrdering Facility: [facility] Address: [address] [place] [address] Performed By: #### 2 432-8, , 2776-08 ####[facility] LABCLIA [id number] [place] [address] [place] Chloride [Moles/Vol] 102 mmol/L Normal 97-105 [facility] Comment on above: Order Comment: Speci men Type: BLOOD SPECIMENOrdering Facility: [facility] Address: [address] [place], [place] [address] Performed By: #### 2 432-8, , 2776-08 ####[facility] LABCLIA [id number] [place] [address] [place] CO2 [Moles/Vol] 26 mmol/L Normal 22-30 [facility] Comment on above: Order Comment: Speci men Type: BLOOD SPECIMENOrdering Facility: [facility] Address: [address] Performed By: #### 2 4323-8, , 2776-08 ####[facility] LABCLIA [id number] [address] [address] [place] Creatinine [Mass/Vol] 0.54 mg/dL Low 0.58-0.96 [facility] Comment on above: Order Comment: Zay sandoval Type: BLOOD SPECIMENOrdering Facility: [facility] Address: [address] [phone] Performed By: #### 2 4323-8, 53939-4, 2776-08 ####[facility] LABCLIA [id number] [place] [address] [place] [facility] [place] Creatinine and Glomerular filtration rate.predicted panel (S/P/Bld) 91 mL/min/1.73m??? Normal >=60 [facility] Comment on above: Order Comment: Zay sandoval Type: BLOOD SPECIMENOrdering Facility: [facility] Address: [address] Result Comment: Marlyn mated Glomerular Filtration [...] Performed By: #### 2 4323-8, , 2776-08 ####[facility] LABCLIA [id number] [place] [address] [place] Glucose [Mass/Vol] 107 mg/dL High 74-99 [facility] Comment on above: Order Comment: Zay sandoval Type: BLOOD SPECIMENOrdering Facility: [facility] Address: [address] [phone] Result Comment: The [place] [employer] (ADA) provides guidance for cutoff [...] Standards of Medical Care in Diabetes 2016, [place] [employer]. Diabetes Care. 2016.39(Suppl 1). Performed By: #### 2 4323-8, , 2776-08 ####[facility] LABCLIA [id number] [address] [address] [place] Potassium [Moles/Vol] 3.7 mmol/L Normal 3.7-5.1 [facility] Comment on above: Order Comment: Speci men Type: BLOOD SPECIMENOrdering Facility: [facility] Address: [address] [phone] Performed By: #### 2 4323-8, , 2776-08 ####[facility] LABCLIA [id number] [address] [address] [place] Protein [Mass/Vol] 6.1 g/dL Low 6.3-8.0 [facility] Comment on above: Order Comment: Speci men Type: BLOOD SPECIMENOrdering Facility: [facility] Address: [address] [phone] Performed By: #### 2 4323-8, , 2776-08 ####[facility] LABIA [id number] [address] [address] [place] Sodium [Moles/Vol] 139 mmol/L Normal 136-144 [facility] Comment on above: Order Comment: Speci men Type: BLOOD SPECIMENOrdering Facility: [facility] Address: [address] [place] [address] Performed By: #### 2 4323-8, , 2776-08 ####[facility] LABCLIA [id number] [address] [address] [place] Urea nitrogen [Mass/Vol] 6 mg/dL Low 7-21 [facility] Comment on above: Order Comment: Speci men Type: BLOOD SPECIMENOrdering Facility: [facility] Address: [address] Performed By: #### 2 4323-8, , 2776-08 ####[facility] LABCLIA [id number] [place] [address] [place] [facility] Magnesium [Mass/Vol] 1.9 mg/dL Normal 1.7-2.3 [facility] Comment on above: Order Comment: Speci men Type: BLOOD SPECIMENOrdering Facility: [facility] Address: [address] [place] [address] Performed By: #### 2 4323-8, , 2776-08 ####[facility] LABCLIA [id number] [place] [address] [place] Phosphate SerPl-mCncon 04-10 Phosphate [Mass/Vol] 2.5 mg/dL Low 2.7-4.8 [facility] Comment on above: Order Comment: Speci men Type: BLOOD SPECIMENOrdering Facility: [facility] Address: [address] [place] [address] Performed By: #### 2 4323-8, , 2776-08 ####[facility] LABIA [id number] [place] [address] [place] ALLIED HEALTHon 04-09-[address] [facility] CASE MANAGEMon 04-09-[address] [facility] CBC panel Auto (Bld)on 04-09 Erythrocyte distribution width (RBC) [Ratio] 13.7 % Normal 11.5-15.0 [facility] Comment on above: Order Comment: Speci men Type: BLOOD SPECIMENOrdering Facility: [facility] Address: [address] [place] [address] Performed By: #### 5 8410-2 ####[facility] LABCLIA [id number] [address] [place] Hematocrit (Bld) [Volume fraction] 33.0 % Low 36.0-46.0 [facility] Comment on above: Order Comment: Speci men Type: BLOOD SPECIMENOrdering Facility: [facility] Address: [address] [place] [address] Performed By: #### 5 8410-2 ####[facility] LABIA [id number] [address] [place] Hemoglobin (Bld) [Mass/Vol] 10.5 g/dL Low 11.5-15.5 [facility] Comment on above: Order Comment: Speci men Type: BLOOD SPECIMENOrdering Facility: [facility] Address: [address] [place] [address] Performed By: #### 5 8410-2 ####[facility] LABIA [id number] [address] [place] OF [facility] MCH (RBC) [Entitic mass] 32.4 pg Normal 26.0-34.0 [facility] Comment on above: Order Comment: Speci men Type: BLOOD SPECIMENOrdering Facility: [facility] Address: [address] [place] [address] Performed By: #### 5 8410-2 ####[facility] LABIA [id number] [address] [place] MCHC (RBC) [Mass/Vol] 31.8 g/dL Normal 30.5-36.0 [facility] Comment on above: Order Comment: Speci men Type: BLOOD SPECIMENOrdering Facility: [facility] Address: [address] [place] [address] Performed By: #### 5 8410-2 ####[facility] LABCLIA [id number] [place] [address] [place] MCV (RBC) [Entitic vol] 101.9 fL High 80.0-100.0 [facility] Comment on above: Order Comment: Speci men Type: BLOOD SPECIMENOrdering Facility: [facility] Address: [address] Performed By: #### 5 8410-2 ####[facility] LABIA [id number] [place] [address] [place] Nucleated RBC (Bld) [#/Vol] 10*3/uL Normal <0.01 [facility] Comment on above: Order Comment: Speci men Type: BLOOD SPECIMENOrdering Facility: [facility] Address: [address] Performed By: #### 5 8410-2 ####[facility] LABIA [id number] [place] [address] [place] Platelet mean volume (Bld) [Entitic vol] 10.3 fL Normal 9.0-12.7 [facility] Comment on above: Order Comment: Speci men Type: BLOOD SPECIMENOrdering Facility: [facility] Address: [address] [place], [place] [address] Performed By: #### 5 8410-2 ####[facility] LABIA [id number] [place] [address] [place] Platelets (Bld) [#/Vol] 221 10*3/uL Normal 150-400 [facility] Comment on above: Order Comment: Speci men Type: BLOOD SPECIMENOrdering Facility: [facility] Address: [address] Performed By: #### 5 8410-2 ####[facility] LABIA [id number] [place] [address] [place] RBC (Bld) [#/Vol] 3.24 10*6/uL Low 3.90-5.20 [facility] Comment on above: Order Comment: Speci men Type: BLOOD SPECIMENOrdering Facility: [facility] Address: [address] [place], [place] [address] Performed By: #### 5 8410-2 ####[facility] LABIA [id number] [place] [address] [place] WBC (Bld) [#/Vol] 6.76 10*3/uL Normal 3.70-11.00 [facility] Comment on above: Order Comment: Speci men Type: BLOOD SPECIMENOrdering Facility: [facility] Address: [address] Performed By: #### 5 8410-2 ####[facility] LABIA [id number] [place] [address] [place] CNPNon 04-09-[address] [facility] Comprehensive metabolic 2000 panelon 04-09-2023 Albumin [Mass/Vol] 3.3 g/dL Low 3.9-4.9 [facility] Comment on above: Order Comment: Speci men Type: BLOOD SPECIMENOrdering Facility: [facility] Address: [address] [place] [address] Performed By: #### 2 4323-8, 95000-1, 2777-1 ####[facility] LABIA [id number] [place] [address] [place] ALP [Catalytic activity/Vol] 50 U/L Normal 34-123 [facility] Comment on above: Order Comment: Speci men Type: BLOOD SPECIMENOrdering Facility: [facility] Address: [address] Performed By: #### 2 4323-8, 82836-8, 2777-1 ####[facility] LABIA [id number] [place] [address] [place] ALT [Catalytic activity/Vol] 9 U/L Normal 7-38 [facility] Comment on above: Order Comment: Speci men Type: BLOOD SPECIMENOrdering Facility: [facility] Address: [address] [place] [address] Performed By: #### 2 4323-8, 89304-0, 2776- ####[facility] LABIA [id number] [place] [address] [place] Anion gap [Moles/Vol] 10 mmol/L Normal 9-18 [facility] Comment on above: Order Comment: Speci men Type: BLOOD SPECIMENOrdering Facility: [facility] Address: [address] Performed By: #### 2 4323-8, 39310-0, 2776-08 ####[facility] LABIA [id number] [place] [address] [place] AST [Catalytic activity/Vol] 17 U/L Normal 13-35 [facility] Comment on above: Order Comment: Speci men Type: BLOOD SPECIMENOrdering Facility: [facility] Address: [address] [address] Performed By: #### 2 4323-8, , 2776-08 ####[facility] LABIA [id number] [place] [address] [place] Bilirubin [Mass/Vol] 0.7 mg/dL Normal 0.2-1.3 [facility] Comment on above: Order Comment: Speci men Type: BLOOD SPECIMENOrdering Facility: [facility] Address: [address] Performed By: #### 2 4323-8, 33479-9, 2776-08 ####[facility] LABIA [id number] [place] [address] [place] Calcium [Mass/Vol] 8.7 mg/dL Normal 8.5-10.2 [facility] Comment on above: Order Comment: Speci men Type: BLOOD SPECIMENOrdering Facility: [facility] Address: [address] Performed By: #### 2 4323-8, , 2776-08 ####[facility] LABCLIA [id number] [place] [address] [place] Chloride [Moles/Vol] 105 mmol/L Normal 97-105 [facility] Comment on above: Order Comment: Speci men Type: BLOOD SPECIMENOrdering Facility: [facility] Address: [address] [place], [place] [address] Performed By: #### 2 4323-8, , 2776-08 ####[facility] LABIA [id number] [place] [address] [place] CO2 [Moles/Vol] 26 mmol/L Normal 22-30 [facility] Comment on above: Order Comment: Speci men Type: BLOOD SPECIMENOrdering Facility: [facility] Address: [address] [place] [address] Performed By: #### 2 4323-8, , 2776-08 ####[facility] [id number] [place] [address] [place] Creatinine [Mass/Vol] 0.53 mg/dL Low 0.58-0.96 [facility] Comment on above: Order Comment: Speci men Type: BLOOD SPECIMENOrdering Facility: [facility] Address: [address] [place], [place] [address] Performed By: #### 2 4323-8, , 2776-08 ####[facility] [id number] [place] [address] [place] Creatinine and Glomerular filtration rate.predicted panel (S/P/Bld) 91 mL/min/1.73m??? Normal >=60 [facility] Comment on above: Order Comment: Speci men Type: BLOOD SPECIMENOrdering Facility: [facility] Address: [address] [place], [place] [id number] Result Comment: Marlyn mated Glomerular Filtration Rate [...] Performed By: #### 2 4323-8, , 2776-08 ####[facility] LABCLIA [id number] [place] [address] [place] Glucose [Mass/Vol] 98 mg/dL Normal 74-99 [facility] Comment on above: Order Comment: Zay sandoval Type: BLOOD SPECIMENOrdering Facility: [facility] Address: [address] [place], [place] [address] Result Comment: The [place] [employer] (ADA) provides guidance for cutoff [...] Standards of Medical Care in Diabetes 2016, [place] [employer]. Diabetes Care. 2016.39(Suppl 1). Performed By: #### 2 4323-8, , 2776-08 ####[facility] LABCLIA [id number] [address] [address] [place] Potassium [Moles/Vol] 3.8 mmol/L Normal 3.7-5.1 [facility] Comment on above: Order Comment: Zay sandoval Type: BLOOD SPECIMENOrdering Facility: [facility] Address: [address] [place] [address] Performed By: #### 2 4323-8, , 2776-08 ####[facility] LABCLIA [id number] [place] [address] [place] Protein [Mass/Vol] 5.8 g/dL Low 6.3-8.0 [facility] Comment on above: Order Comment: Speci men Type: BLOOD SPECIMENOrdering Facility: [facility] Address: [address] [place] [address] Performed By: #### 2 4323-8, , 2776-08 ####[facility] LABCLIA [id number] [place] [address] [place] Sodium [Moles/Vol] 141 mmol/L Normal 136-144 [facility] Comment on above: Order Comment: Speci men Type: BLOOD SPECIMENOrdering Facility: [facility] Address: [address] [place] [address] Performed By: #### 2 4323-8, , 2776-08 ####[facility] LABCLIA [id number] [place] [address] [place] Urea nitrogen [Mass/Vol] 7 mg/dL Normal 7-21 [facility] Comment on above: Order Comment: Speci men Type: BLOOD SPECIMENOrdering Facility: [facility] Address: [address] [place] [address] Performed By: #### 2 4323-8, , 2776-08 ####[facility] LABCLIA [id number] [place] [address] [place] Magnesium SerPl-mCncon 04-09 Magnesium [Mass/Vol] 1.9 mg/dL Normal 1.7-2.3 [facility] Comment on above: Order Comment: Speci men Type: BLOOD SPECIMENOrdering Facility: [facility] Address: [address] [place] [address] Performed By: #### 2 4323-8, , 2776- ####[facility] LABCLIA [id number] [place] [address] [place] Phosphate SerPl-mCncon 04-09 Phosphate [Mass/Vol] 2.4 mg/dL Low 2.7-4.8 [facility] Comment on above: Order Comment: Speci men Type: BLOOD SPECIMENOrdering Facility: [facility] Address: [address] [place] [address] Performed By: #### 2 4323-8, 33929-3, 2777-1 ####[facility] LABCLIA [id number] [address] [place] THERAPY NTon 04-09-[address] [facility] THERAPY NT Normal [facility] CASE MGT INIT ASSESon 2022 CASE MGT INIT ASSES Normal [facility] CBC panel Auto (Bld)on 04-08 Erythrocyte distribution width (RBC) [Ratio] 13.8 % Normal 11.5-15.0 [facility] Comment on above: Order Comment: Speci men Type: BLOOD SPECIMENOrdering Facility: [facility] Address: [address] [place] [address] Performed By: #### 5 8410-2 ####[facility] LABIA [id number] [place] [address] [place] Hematocrit (Bld) [Volume fraction] 36.0 % Normal 36.0-46.0 [facility] Comment on above: Order Comment: Speci men Type: BLOOD SPECIMENOrdering Facility: [facility] Address: [address] [place] [address] Performed By: #### 5 8410-2 ####[facility] LABCLIA [id number] [place] [address] [place] Hemoglobin (Bld) [Mass/Vol] 11.8 g/dL Normal 11.5-15.5 [facility] Comment on above: Order Comment: Speci men Type: BLOOD SPECIMENOrdering Facility: [facility] Address: [address] [place] [address] Performed By: #### 5 8410-2 ####[facility] [id number] [address] MCH (RBC) [Entitic mass] 32.4 pg Normal 26.0-34.0 [facility] Comment on above: Order Comment: Speci men Type: BLOOD SPECIMENOrdering Facility: [facility] Address: [address] [place] [address] Performed By: #### 5 8410-2 ####[facility] LABIA [id number] [address] [facility] MCHC (RBC) [Mass/Vol] 32.8 g/dL Normal 30.5-36.0 [facility] Comment on above: Order Comment: Speci men Type: BLOOD SPECIMENOrdering Facility: [facility] Address: [address] Performed By: #### 5 8410-2 ####[facility] [id number] [address] [facility] MCV (RBC) [Entitic vol] 98.9 fL Normal 80.0-100.0 [facility] Comment on above: Order Comment: Speci men Type: BLOOD SPECIMENOrdering Facility: [facility] Address: [address] Performed By: #### 5 8410-2 ####[facility] [id number] [address] [place] Nucleated RBC (Bld) [#/Vol] 10*3/uL Normal <0.01 [facility] Comment on above: Order Comment: Speci men Type: BLOOD SPECIMENOrdering Facility: [facility] Address: [address] Performed By: #### 5 8410-2 ####[facility] LABIA [id number] [place] [address] [place] Platelet mean volume (Bld) [Entitic vol] 9.6 fL Normal 9.0-12.7 [facility] Comment on above: Order Comment: Speci men Type: BLOOD SPECIMENOrdering Facility: [facility] Address: [address] [place], [place] [address] Performed By: #### 5 8410-2 ####[facility] LABIA [id number] [place] [address] [place] Platelets (Bld) [#/Vol] 264 10*3/uL Normal 150-400 [facility] Comment on above: Order Comment: Speci men Type: BLOOD SPECIMENOrdering Facility: [facility] Address: [address] [place], [place] [address] Performed By: #### 5 8410-2 ####[facility] LABIA [id number] [place] [address] [place] RBC (Bld) [#/Vol] 3.64 10*6/uL Low 3.90-5.20 [facility] Comment on above: Order Comment: Speci men Type: BLOOD SPECIMENOrdering Facility: [facility] Address: [address] [place], [place] [address] Performed By: #### 5 8410-2 ####[facility] LABIA [id number] [place] [address] [place] WBC (Bld) [#/Vol] 8.97 10*3/uL Normal 3.70-11.00 [facility] Comment on above: Order Comment: Speci men Type: BLOOD SPECIMENOrdering Facility: [facility] Address: [address] [place], [place] [address] Performed By: #### 5 8410-2 ####[facility] LABIA [id number] [place] Erythrocyte distribution width (RBC) [Ratio] 14.0 % Normal 11.5-15.0 [facility] Comment on above: Order Comment: Speci men Type: BLOOD SPECIMENOrdering Facility: [facility] Address: [address] [place] [address] Performed By: #### 5 8410-2 ####[facility] LABIA [id number] [place] [address] [place] Hematocrit (Bld) [Volume fraction] 35.4 % Low 36.0-46.0 [facility] Comment on above: Order Comment: Speci men Type: BLOOD SPECIMENOrdering Facility: [facility] Address: [address] [place] [address] Performed By: #### 5 8410-2 ####[facility] LABIA [id number] [address] [place] Hemoglobin (Bld) [Mass/Vol] 11.7 g/dL Normal 11.5-15.5 [facility] Comment on above: Order Comment: Speci men Type: BLOOD SPECIMENOrdering Facility: [facility] Address: [address] [place] [address] Performed By: #### 5 8410-2 ####[facility] LABIA [id number] [place] [address] [place] MCH (RBC) [Entitic mass] 33.2 pg Normal 26.0-34.0 [facility] Comment on above: Order Comment: Speci men Type: BLOOD SPECIMENOrdering Facility: [facility] Address: [address] [place], [place] [address] Performed By: #### 5 8410-2 ####[facility] LABIA [id number] [place] [address] [place] MCHC (RBC) [Mass/Vol] 33.1 g/dL Normal 30.5-36.0 [facility] Comment on above: Order Comment: Speci men Type: BLOOD SPECIMENOrdering Facility: [facility] Address: [address] Performed By: #### 5 8410-2 ####[facility] LABIA [id number] [address] [place] MCV (RBC) [Entitic vol] 100.6 fL High 80.0-100.0 [facility] Comment on above: Order Comment: Speci men Type: BLOOD SPECIMENOrdering Facility: [facility] Address: [address] Performed By: #### 5 8410-2 ####[facility] [id number] [address] [place] Nucleated RBC (Bld) [#/Vol] 10*3/uL Normal <0.01 [facility] Comment on above: Order Comment: Speci men Type: BLOOD SPECIMENOrdering Facility: [facility] Address: [address] [place], [place] [address] Performed By: #### 5 8410-2 ####[facility] [id number] [place] [address] [place] Platelet mean volume (Bld) [Entitic vol] 10.0 fL Normal 9.0-12.7 [facility] Comment on above: Order Comment: Speci men Type: BLOOD SPECIMENOrdering Facility: [facility] Address: [address] [place] [address] Performed By: #### 5 8410-2 ####[facility] LABIA [id number] [place] [address] [place] Platelets (Bld) [#/Vol] 277 10*3/uL Normal 150-400 [facility] Comment on above: Order Comment: Speci men Type: BLOOD SPECIMENOrdering Facility: [facility] Address: [address] Performed By: #### 5 8410-2 ####[facility] LABCLIA [id number] [place] [address] [place] RBC (Bld) [#/Vol] 3.52 10*6/uL Low 3.90-5.20 [facility] Comment on above: Order Comment: Speci men Type: BLOOD SPECIMENOrdering Facility: [facility] Address: [address] [place] [address] Performed By: #### 5 8410-2 ####[facility] LABIA [id number] [place] [address] [place] [facility] [place] WBC (Bld) [#/Vol] 9.47 10*3/uL Normal 3.70-11.00 [facility] Comment on above: Order Comment: Speci men Type: BLOOD SPECIMENOrdering Facility: [facility] Address: [address] [place] [address] Performed By: #### 5 8410-2 ####[facility] LABIA [id number] [place] [address] [place] Comprehensive metabolic 2000 panelon 04-08-2023 Albumin [Mass/Vol] 3.7 g/dL Low 3.9-4.9 [facility] Comment on above: Order Comment: Speci men Type: BLOOD SPECIMENOrdering Facility: [facility] Address: [address] [place] [address] Performed By: #### 2 4323-8, 27702-06, ####[facility] [id number] [place] [id number] [place] ALP [Catalytic activity/Vol] 58 U/L Normal 34-123 [facility] Comment on above: Order Comment: Speci men Type: BLOOD SPECIMENOrdering Facility: [facility] Address: [address] [place] [address] Performed By: #### 2 4323-8, 27702-06, ####[facility] LABCLIA [id number] [place] [address] [place] ALT [Catalytic activity/Vol] 9 U/L Normal 7-38 [facility] Comment on above: Order Comment: Speci men Type: BLOOD SPECIMENOrdering Facility: [facility] Address: [address] [place] [address] Performed By: #### 2 4323-8, 2776-08, ####[facility] LABCLIA [id number] [place] [address] [place] Anion gap [Moles/Vol] 16 mmol/L Normal 9-18 [facility] Comment on above: Order Comment: Speci men Type: BLOOD SPECIMENOrdering Facility: [facility] Address: [address] [place] [address] Performed By: #### 2 4323-8, 2776-08, ####[facility] LABCLIA [id number] [place] [address] [place] AST [Catalytic activity/Vol] 19 U/L Normal 13-35 [facility] Comment on above: Order Comment: Speci men Type: BLOOD SPECIMENOrdering Facility: [facility] Address: [address] [place] [address] Performed By: #### 2 4323-8, 2776-08, ####[facility] LABCLIA [id number] [place] [id number] [place] Bilirubin [Mass/Vol] 0.6 mg/dL Normal 0.2-1.3 [facility] Comment on above: Order Comment: Speci men Type: BLOOD SPECIMENOrdering Facility: [facility] Address: [address] [place], [place] [address] Performed By: #### 2 4323-8, 27702-06, ####[facility] LABCLIA [id number] [place] [address] [place] Calcium [Mass/Vol] 9.0 mg/dL Normal 8.5-10.2 [facility] Comment on above: Order Comment: Speci men Type: BLOOD SPECIMENOrdering Facility: [facility] Address: [address] [place] [address] Performed By: #### 2 4323-8, 2777-, ####[facility] LABCLIA [id number] [place] [address] [place] Chloride [Moles/Vol] 103 mmol/L Normal 97-105 [facility] Comment on above: Order Comment: Speci men Type: BLOOD SPECIMENOrdering Facility: [facility] Address: [address] [place] [address] Performed By: #### 2 4323-8, 27702-06, ####[facility] LABCLIA [id number] [place] [address] [place] CO2 [Moles/Vol] 20 mmol/L Low 22-30 [facility] Comment on above: Order Comment: Speci men Type: BLOOD SPECIMENOrdering Facility: [facility] Address: [address] [place], [place] [address] Performed By: #### 2 4323-8, 27702-06, ####[facility] LABCLIA [id number] [place] [address] [place] Creatinine [Mass/Vol] 0.56 mg/dL Low 0.58-0.96 [facility] Comment on above: Order Comment: Speci men Type: BLOOD SPECIMENOrdering Facility: [facility] Address: [address] [place], [place] [address] Performed By: #### 2 4323-8, 2771, ####[facility] LABCLIA [id number] [place] [id number] [place] Creatinine and Glomerular filtration rate.predicted panel (S/P/Bld) 90 mL/min/1.73m??? Normal >=60 [facility] Comment on above: Order Comment: Zay sandoval Type: BLOOD SPECIMENOrdering Facility: [facility] Address: [address] [place] [id number] Result Comment: Marlyn mated Glomerular Filtration Rate [...] GFR. Performed By: #### 2 4323-8, 2776-08, ####[facility] LABCLIA [id number] [place] [address] [place] Glucose [Mass/Vol] 132 mg/dL High 74-99 [facility] Comment on above: Order Comment: Zay sandoval Type: BLOOD SPECIMENOrdering Facility: [facility] Address: [address] [place] [address] Result Comment: The [place] Diabetes [employer] (ADA) provides guidance for cutoff [...] Standards of Medical Care in Diabetes 2016, [place] [employer]. Diabetes Care. 2016.39(Suppl 1). Performed By: #### 2 4323-8, 2777-, ####[facility] LABCLIA [id number] [place] [id number] [place] Potassium [Moles/Vol] 4.1 mmol/L Normal 3.7-5.1 [facility] Comment on above: Order Comment: Speci men Type: BLOOD SPECIMENOrdering Facility: [facility] Address: [address] [place] [address] Performed By: #### 2 4323-8, 2776-08, ####[facility] LABCLIA [id number] [place] [address] [place] Protein [Mass/Vol] 6.2 g/dL Low 6.3-8.0 [facility] Comment on above: Order Comment: Speci men Type: BLOOD SPECIMENOrdering Facility: [facility] Address: [address] [place] [address] Performed By: #### 2 4323-8, 2776-08, ####[facility] LABCLIA [id number] [place] [address] [place] Sodium [Moles/Vol] 139 mmol/L Normal 136-144 [facility] Comment on above: Order Comment: Speci men Type: BLOOD SPECIMENOrdering Facility: [facility] Address: [address] [place] [address] Performed By: #### 2 4323-8, 2776-08, ####[facility] LABCLIA [id number] [place] [id number] [place] Urea nitrogen [Mass/Vol] 9 mg/dL Normal 7-21 [facility] Comment on above: Order Comment: Speci men Type: BLOOD SPECIMENOrdering Facility: [facility] Address: [address] [place], [place] [address] Performed By: #### 2 4323-8, 2776-08, ####[facility] LABCLIA [id number] [address] [address] [place] Magnesium SerPl-mCncon 04-08 Magnesium [Mass/Vol] 1.9 mg/dL Normal 1.7-2.3 [facility] Comment on above: Order Comment: Speci men Type: BLOOD SPECIMENOrdering Facility: [facility] Address: [address] [place], [place] [address] Performed By: #### 2 4323-8, 2777-1, ####[facility] LABCLIA [id number] [address] [place] NURSING PROGon 04-08-[address] [facility] Phosphate SerPl-mCncon 04-08 Phosphate [Mass/Vol] 3.8 mg/dL Normal 2.7-4.8 [facility] Comment on above: Order Comment: Speci men Type: BLOOD SPECIMENOrdering Facility: [facility] Address: [address] [place], [place] [address] Performed By: #### 2 4323-8, 2776-08, ####[facility] LABCLIA [id number] [place] [id number] [place] THERAPY NTon 04-08-[address] [facility] THERAPY NT Normal [facility] XR CHEST 1V FRONTAL PORTon 0 04-08-2023 XR CHEST 1V FRONTAL PORT Normal [facility] ANES POSTPROC EVALon 023 ANES POSTPROC EVAL Normal [facility] ANES PRE-OPon 04-07-2023 ANES PRE-OP Normal [facility] BRIEF OP NOTon 04-07-2023 BRI[address] NOT Normal [facility] CONFIRM BLOOD TYPEon [address] [facility] Comment on above: Order Comment: Speci men Type: BLOOD SPECIMENOrdering Facility: [facility] Address: [address] [place], [place] [address] Performed By: #### C ONABO ####[facility] BLOOD BANKCLIA [id number] [address] [place] Rh Nom (Bld) Positive Normal [facility] Comment on above: Order Comment: Speci men Type: BLOOD SPECIMENOrdering Facility: [facility] Address: [address] [place] [address] Performed By: #### C ONABO ####CC [facility] BLOOD BANKCLIA [id number] [address] CYTOLOGY NON-GYNon CASE REPORT Normal [facility] Comment on above: Order Comment: Speci men Type: SPECIMEN OBTAINED BY LAVAGEOrdering Facility: [facility] Address: [address] [place] [address] Result Comment: [facility] Cytology Report Case: [id number] Provider: Eliot Castillo MD Collected: 04/07/2023 12:23 PMOrdering Location: Admitting Received: 04/07/2023 02:37 PMPathologist: Catina Pyle MDSpecimen: PELVIC WASHING Performed By: #### C YTONON ####[facility] LABCLIA [id number] [address] CLINICAL HISTORY Normal [facility] Comment on above: Order Comment: Speci men Type: SPECIMEN OBTAINED BY LAVAGEOrdering Facility: [facility] Address: [address] [place] [address] Result Comment: Pre- op diagnosis:Ovarian mass [N83.8]Preop examination [Z01.818] Performed By: #### C YTONON ####[facility] LABCLIA [id number] [address] FINAL DIAGNOSIS Normal [facility] Comment on above: Order Comment: Speci men Type: SPECIMEN OBTAINED BY LAVAGEOrdering Facility: [facility] Address: [address] [place] [address] Result Comment: A - PELVIC WASHING Negative for malignant cells.The following cell blocks were associated with this case:A1Cell Block, Alcohol Fixed Performed By: #### C YTONON ####[facility] LABCLIA [id number] [address] OF [facility] FINAL PERFORMING LAB Normal [facility] Comment on above: Order Comment: Speci men Type: SPECIMEN OBTAINED BY LAVAGEOrdering Facility: [facility] Address: [address] [place] [address] Result Comment: Tech nical component, drafter commercial screening performed at [facility], [facility] [place] [address] CLIA# [id number] interpretation performed at [facility], [facility] [place] [address] CLIA# [id number] Director: Antonio Esparza M.D. Performed By: #### C YTONON ####[facility] LABCLIA [id number] [address] GROSS DESCRIPTION Normal [facility] Comment on above: Order Comment: Speci men Type: SPECIMEN OBTAINED BY LAVAGEOrdering Facility: [facility] Address: [address] [place] [address] Result Comment: David. Doris RYAN [id number] cc cloudy red fluid with material. ThinPrep and Cell Block prepared. Performed By: #### C YTONON ####[facility] LABCLIA [id number] [address] OF [facility] OPERATIVE NOon 04-07-[address] [facility] SURGICAL PATHOLOGYon [address] [facility] Comment on above: Order Comment: Speci men Type: TISSUE SPECIMENOrdering Facility: [facility] Address: [address] [place] [address] Result Comment: Surg ica Pathology Report Case: [id number] Provider: Eliot Castillo MD Collected: 04/07/2023 12:27 [...] diaphram peritoneum biopsy Performed By: #### S ####[facility] LABCLIA [id number] [address] STATES OF [facility] CLINICAL HISTORY Normal [facility] Comment on above: Order Comment: Speci men Type: TISSUE SPECIMENOrdering Facility: [facility] Address: [address] [place] [address] Result Comment: Pre- op diagnosis:Ovarian mass [N83.8]Preop examination [Z01.818] Performed By: #### S ####[facility] LABCLIA [id number] [address] [place] DIAGNOSIS COMMENT Dr. Nicole fernandeze d selected slides from part A and agrees with the diagnosis. Normal [facility] Comment on above: Order Comment: Speci men Type: TISSUE SPECIMENOrdering Facility: [facility] Address: [address] [place] [address] Performed By: #### S ####[facility] LABCLIA [id number] [address] FINAL DIAGNOSIS Normal [facility] Comment on above: Order Comment: Speci men Type: TISSUE SPECIMENOrdering Facility: [facility] Address: [address] [place] [address] Result Comment: A. R ight ovary and [...] Benign fibroadipose tissue. Performed By: #### S ####[facility] LABCLIA [id number] [facility] [id number] [place] FINAL PERFORMING LAB [facility] Comment on above: Order Comment: Speci men Type: TISSUE SPECIMENOrdering Facility: [facility] Address: [address] [place] [phone] Result Comment: Diag nostic interpretation performed at [facility], [address] [place] [address] CLIA# [id number] Director: Antonio Esparza M.D. Performed By: #### S ####[facility] LABCLIA [id number] [address] [id number] [address] [place] GROSS DESCRIPTION Normal [facility] Comment on above: Order Comment: Speci men Type: TISSUE SPECIMENOrdering Facility: [facility] Address: [address] [place] [address] Result Comment: A. F ALLOPIAN TUBE AND [...] The external surface of the mass is nui-zhtv-bjast and smooth. Serial sectioning of the mass [...] the ovary ends and the solid mass begins.Urgent Care Physician sections are submitted as follows:A 2-11 merchandising representative sections of massA 12-13 possible residual [id number] fallopian tube fimbriated end bisected and totally submitted with merchandising representative cross-sectionMW 04/08/2023. UTERUS CERVIX WITH FALLOPIAN [...] with a crinkled appearance ovarian parenchyma is unremarkable.Urgent Care Physician sections are submitted as follows:B1 cervix 6:00B2 cervix 12:00B3 anterior uterine wallB4 posterior uterine wallB5 left ovaryB6 left fallopian tube fimbriated end bivalved and totally submitted and merchandising representative cross-sectionMW 04/08/2023. PERITONEUM BIOPSYReceived fresh labeled [...] yellow-brown and lobulated. Sectioning reveals a unremarkable lumen.Urgent Care Physician sections are submitted as follows:M1 inked proximal resection margin and mesoappendiceal resection marginM2 entire distal tip, bisected and central cross-sections through lumenGross examination performed at [facility] [address] [place] [address] CLIA# [id number] 04/07/23 3:59 PMN. OMENTUM RESECTIONReceived fresh, labeled "omentum resection" is an unoriented, lobulated portion of adipose tissue, consistent with omentum, measuring 25.0 x 15.0 x 0.6 cm. Sectioning reveals soft, de souza, homogenous cut surfaces consisting entirely of adipose tissue. Urgent Care Physician sections are submitted in cassettes [id number] April 07, 2023 2:53 PMGross examination performed at [facility], [address] [place], [place] [address]O. PERITONEUM BIOPSYReceived fresh labeled "right diaphragm peritoneum biopsy" irregular segment of de souza-pink membranous soft tissue measuring 0.3 x 0.2 x 0.1 cm. Specimen is entirely submitted in O1.[place] [address] CLIA# [id number] 04/07/23 3:55 PM Performed By: #### S ####[facility] LABIA [id number] [address] [place] INTRAOPERATIVE DIAGNOSIS Normal [facility] Comment on above: Order Comment: Speci men Type: TISSUE SPECIMENOrdering Facility: [facility] Address: [address] [place] [address] Result Comment: A. 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 Juanito Will).Intraoperative diagnosis performed at [facility], [address] [place], [place] [address]B. UTERUS CERVIX WITH FALLOPIAN TUBE AND OVARY LEFTFrozen section cancelled per Dr. Juanito Will. Grossly normal endometrium. Discussed with Dr. Castillo.Intraoperative diagnosis performed at [facility], [address] [place] [address] Performed By: #### S ####[facility] LABIA [id number] [place] [address] [place] SYNOPTIC REPORT [facility] Comment on above: Order Comment: Speci men Type: TISSUE SPECIMENOrdering Facility: [facility] Address: [address] [place] [address] Result Comment: OVAR Y or FALLOPIAN TUBE or PRIMARY PERITONEUMOVARY OR FALLOPIAN TUBE OR PRIMARY PERITONEUM: RESECTION - All Lolmyagvp5do Edition - Protocol posted: 10/28/2022SPECIMEN Procedure: Total [...] pathology report. pT Category: pT1c2 pN Category: [id number] STAGE FIGO Stage: IC2 Performed By: #### S ####[facility] LABCLIA [id number] [place] [address] [place] CNPNon 04-06-[address] [facility] HISTORY PHYSICALon 3 [facility]N Telephone (AGCARDPOB ) ----- STEFANO WASHINGTON ([id number]) 1940 F Date Time Provider Department 03/24/23 VIRAJ ARRIAGATHUANMALCOLM AGCARDPOVasu During your visit today, we recorded the following information about you: Nanci Calloway 03/24/2023 2:37 PM Signed Received CC in [place] but patient will be receiving services elsewhere [...] Encounter Status:Closed by NANCI CALLOWAY on 03/24/23 [facility] ECG COMPLETEon 03-22-2023 Atrial Rate 99 BPM [facility] Calculated P Vardaman 39 degrees [facility] Calculated R Vardaman 114 degrees [facility] Calculated T [place]ardaman 6 degrees [facility] P-R Interval 177 ms [facility] QRS Duration 133 ms [facility] QT Interval 374 ms [facility] QTC Calculation (Bazett) 483 ms [facility] Ventricular Rate 100 BPM [facility] CNPNon 03-16-[address] [facility] CNCOon 03-10-20[address]CO [address] [facility] CNPNon 03-10-[address] [facility] CT ABD/PEL W IVCONon 023 Radiology Result ACTIONABLE Abnormal [facility] CT ABD/PEL W IVCON Invalid Interpretation Code [facility] CNPNon 02-26-[address] [facility] CNPNon 02-02-[address] [facility] CNTHERAPYon 02-02-[address] 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 COMPRESSION FRACTURE OF THE T11 VERTEBRAL BODY. Sanitation Inspector: IVONNE Transcribe Date/Time: Jan 30 2023 1:51P Dictated by : CHRISTOPHER GIRALDO MD This examination was interpreted and the report reviewed and electronically signed by: CHRISTOPHER GIRALDO MD on Jan 30 2023 1:56PM [facility] DIVISION OF RADIOLOGY * * *Final [...] *Final Report* * * DATE OF EXAM: Brennen 21 2023 12:01PM WOX [id number] - XR LUMBAR [...] COMPRESSION FRACTURE OF THE T11 VERTEBRAL BODY. Sanitation Inspector: [facility] Transcribe Date/Time: Jan 30 2023 1:51P Dictated by : CHRISTOPHER GIRALDO MD This examination was interpreted and the report reviewed and electronically signed by: CHRISTOPHER GIRALDO MD on Jan 30 2023 1:56PM EST [facility] XR Lumbar spine 3 ViewsOrder ed By: Ccf Provider on 01-30-2023 [facility] CNOVon 01-27-[address] [facility] CNPNon 01-27-[address] [facility] XR LUMBAR 3V AP/LAT/L5-S1on 01-27-2023 XR LUMBAR 3V AP/LAT/L5-S1 [facility] XR LUMBAR GENERAL 3V AP/LAT/ L5-S1on 01-27-2023 [facility] XR Lumbar spine 3 Viewson Radiology Study observation (narrative) [facility] Bacteria Ur Culton 3 Bacteria identified Cx Nom (U) [facility] Comment on above: Performed By: #### 6 30-4 ####[facility] LABCLIA [id number] [place] [address] [place] CNPNon 01-25-[address] [facility] XR Chest PA and Lateralon IMPRESSION: 1. No pleural effusion or consolidation 2. Large hiatal hernia Sanitation Inspector: IVONNE Transcribe Date/Time: Jul 20 2022 8:31A Dictated by : JANAY DESAI MD This examination was interpreted and the report reviewed and electronically signed by: JANAY DESAI MD on Jul 20 2022 8:32AM [facility] DIVISION OF RADIOLOGY * * *Final [...] Large hiatal hernia. DIVISION OF RADIOLOGY Provider, [facility] - 07/20/2022 * * *Final Report* [...] effusion or consolidation 2. Large hiatal hernia Sanitation Inspector: IVONNE Transcribe Date/Time: Jul 20 2022 8:31A Dictated by : JANAY DESAI MD This examination was interpreted and the report reviewed and electronically signed by: JANAY DESAI MD on Jul 20 2022 8:32AM EST [facility] Radiology Study observation (narrative) [facility] XR Chest PA and LateralOrder ed By: Ccf Provider on 07-20-2022 [facility] LIPID PANEL, NONFASTINGon Cholesterol [Mass/Vol] 238 mg/dL High <200 mg/dL [facility] HDL Cholesterol, Nonfasting 64 mg/dL >39 mg/dL [facility] LDL Cholesterol, Nonfasting 127 mg/dL High <100 mg/dL [facility] LDL/HDL Ratio, Nonfasting 1.98 mg/dL <2.54 mg/dL [facility] Non HDL Cholesterol, Nonfasting 174 mg/dL High <130 mg/dL [facility] Total Chol/HDL Ratio, Nonfasting 3.72 mg/dL <5.10 mg/dL [facility] Triglycerides, Nonfasting 235 mg/dL High <150 mg/dL [facility] VLDL Cholesterol, Nonfasting 47 mg/dL High <30 mg/dL [facility] TSH BLDon 06-27-2022 TSH Qn 3.260 m[IU]/L 0.270 - 4.200 mIU/L [facility] Urinalysis complete panel (U )on 12-13-2021 Bilirubin Ql (U) Negative Negative [facility] Clarity (Unsp spec) Clear Clear [facility] Color (U) Light Yellow Yellow [facility] Epithelial cells LM.HPF (Urine sed) [#/Area] Few [facility] Glucose Test strip (U) [Mass/Vol] Negative Negative [facility] Hemoglobin Ql (U) Negative Negative [facility] Ketones Ql (U) Negative Negative [facility] Leukocyte esterase Test strip Ql (U) Negative Negative [facility] Nitrite Ql (U) Negative Negative [facility] pH (U) 6.0 [pH] 5.0 - 8.0 [facility] Protein (U) [Mass/Vol] Negative Negative [facility] RBC LM.HPF (Urine sed) [#/Area] 0-3 /HPF 0-3 /HPF [facility] Specific gravity (U) [Rel density] 1.006 1.005 - 1.030 [facility] Urobilinogen Ql (U) Negative Negative [facility] WBC LM.HPF (Urine sed) [#/Area] 0-5 /HPF 0-5 /HPF [facility] CBC W Auto Differential pane l (Bld)on 12-12-2021 Abs Immature Gran <0.03 <0.10 k/uL [facility] Basophils (Bld) [#/Vol] 0.06 10*3/uL <0.11 k/uL [facility] Basophils/100 WBC (Bld) 1.2 % [facility] Differential cell count method Nom (Bld) Auto [facility] Eosinophils (Bld) [#/Vol] 0.13 10*3/uL <0.46 k/uL [facility] Eosinophils/100 WBC (Bld) 2.6 % [facility] Erythrocyte distribution width (RBC) [Ratio] 14.2 % 11.5 - 15.0 % [facility] Hematocrit (Bld) [Volume fraction] 39.6 % 36.0 - 46.0 % [facility] Hemoglobin (Bld) [Mass/Vol] 12.6 g/dL 11.5 - 15.5 g/dL [facility] Immature Gran % 0.4 % [facility] Lymphocytes (Bld) [#/Vol] 1.67 10*3/uL 1.00 - 4.00 k/uL [facility] Lymphocytes/100 WBC (Bld) 33.7 % [facility] MCH (RBC) [Entitic mass] 31.0 pg 26.0 - 34.0 pg [facility] MCHC (RBC) [Mass/Vol] 31.8 g/dL 30.5 - 36.0 g/dL [facility] MCV (RBC) [Entitic vol] 97.5 fL 80.0 - 100.0 fL [facility] Monocytes (Bld) [#/Vol] 0.42 10*3/uL <0.87 k/uL [facility] Monocytes/100 WBC (Bld) 8.5 % [facility] Neutrophils (Bld) [#/Vol] 2.65 10*3/uL 1.45 - 7.50 k/uL [facility] Neutrophils/100 WBC (Bld) 53.6 % [facility] Nucleated RBC (Bld) [#/Vol] 10*3/uL <0.01 k/uL [facility] Nucleated RBC/100 WBC (Bld) [Ratio] 0.0 /100 WBC [facility] Platelet mean volume (Bld) [Entitic vol] 10.9 fL 9.0 - 12.7 fL [facility] Platelets (Bld) [#/Vol] 239 10*3/uL 150 - 400 k/uL [facility] RBC (Bld) [#/Vol] 4.06 10*6/uL 3.90 - 5.20 m/uL [facility] WBC (Bld) [#/Vol] 4.95 10*3/uL 3.70 - 11.00 k/uL [facility] Comprehensive metabolic 2000 panelon 12-12-2021 Albumin [Mass/Vol] 4.7 g/dL 3.9 - 4.9 g/dL [facility] ALP [Catalytic activity/Vol] 66 U/L 34 - 123 U/L [facility] ALT [Catalytic activity/Vol] 19 U/L 7 - 38 U/L [facility] Anion gap [Moles/Vol] 12 mmol/L 9 - 18 mmol/L [facility] AST [Catalytic activity/Vol] 30 U/L 13 - 35 U/L [facility] Bilirubin [Mass/Vol] 0.4 mg/dL 0.2 - 1 .3 mg/dL [facility] Calcium [Mass/Vol] 9.8 mg/dL 8.5 - 10. 2 mg/dL [facility] Chloride [Moles/Vol] 102 mmol/L 97 - 10 5 mmol/L [facility] CO2 [Moles/Vol] 26 mmol/L 22 - 30 mmol/L [facility] Creatinine [Mass/Vol] 0.65 mg/dL 0.58 - 0.96 mg/dL [facility] Estimated Glomerular Filtration Rate 88 mL/min/1.73m >=60 mL/min/1.7 3m [facility] Glucose [Mass/Vol] 102 mg/dL High 74 - 99 mg/dL [facility] Potassium [Moles/Vol] 4.8 mmol/L 3.7 - 5.1 mmol/L [facility] Protein [Mass/Vol] 7.8 g/dL 6.3 - 8.0 g/dL [facility] Sodium [Moles/Vol] 140 mmol/L 136 - 144 mmol/L [facility] Urea nitrogen [Mass/Vol] 13 mg/dL 7 - 21 mg/dL [facility] LIPID PANEL, NONFASTINGon Cholesterol [Mass/Vol] 239 mg/dL High <200 mg/dL [facility] HDL Cholesterol, Nonfasting 52 mg/dL >39 mg/dL [facility] LDL Cholesterol, Nonfasting 140 mg/dL High <100 mg/dL [facility] LDL/HDL Ratio, Nonfasting 2.69 mg/dL High <2.54 mg/dL [facility] Non HDL Cholesterol, Nonfasting 187 mg/dL High <130 mg/dL [facility] Total Chol/HDL Ratio, Nonfasting 4.60 mg/dL <5.10 mg/dL [facility] Triglycerides, Nonfasting 233 mg/dL High <150 mg/dL [facility] VLDL Cholesterol, Nonfasting 47 mg/dL High <30 mg/dL [facility] TSH BLDon 12-12-2021 TSH Qn 2.980 m[IU]/L 0.270 - 4.200 mIU/L [facility] Vital Signs Date Time Vital Sign Value Performing Clinician Facility 02-14-2024 14:31-0400 Blood Pressure Cuff Size ANNELIESE Beijingyicheng [facility] 02-14-2024 14:31-0400 Blood Pressure Location ANNELIESE [facility]yicheng [facility] 02-14-2024 14:31-0400 Blood Pressure Method ANNELIESE Beijingyicheng [facility] 02-14-2024 14:31-0400 Body temperature 98.24 [degF] ANNELIESE [facility]heng [facility] 02-14-2024 14:31-0400 Diastolic Blood Pressure Non-Invasive 55 mm[Hg] ANNELIESE [facility]yicheng [facility] 02-14-2024 14:31-0400 Heart rate 83 /min ANNELIESE [facility]heng [facility] 02-14-2024 14:31-0400 Reason For Taking VItal Signs ANNELIESE Beijingyicheng [facility] 02-14-2024 14:31-0400 Respiratory rate 20 /min ANNELIESE [facility]heng [facility] 02-14-2024 14:31-0400 Systolic Blood Pressure Non-Invasive 120 mm[Hg] ANNELIESE PLUNK DO [facility] 02-14-2024 07:21-0400 Blood Pressure Cuff Size ANNELIESE PLUNK DO [facility] 02-14-2024 07:21-0400 Blood Pressure Location ANNELIESE PLUNK DO [facility] 02-14-2024 07:21-0400 Blood Pressure Method ANNELIESE PLUNK DO [facility] 02-14-2024 07:21-0400 Body temperature 97.34 [degF] ANNELIESE PLUNK DO [facility] 02-14-2024 07:21-0400 Diastolic Blood Pressure Non-Invasive 42 mm[Hg] ANNELIESE PLUNK DO [facility] 02-14-2024 07:21-0400 Heart rate 64 /min ANNELIESE PLUNK [employer] [facility] 02-14-2024 07:21-0400 Reason For Taking VItal Signs ANNELIESE PLNativoo [facility] 02-14-2024 07:21-0400 Respiratory rate 20 /min ANNELIESE PLUNK DO [facility] 02-14-2024 07:21-0400 Systolic Blood Pressure Non-Invasive 111 mm[Hg] ANNELIESE PLUNK DO [facility] 02-13-2024 21:27-0400 Body temperature 98.42 [degF] ANNELIESE PLUNK DO [facility] 02-13-2024 21:27-0400 Diastolic Blood Pressure Non-Invasive 47 mm[Hg] ANNELIESE PLUNK DO [facility] 02-13-2024 21:27-0400 Heart rate 74 /min ANNELIESE PLUNK [employer] [facility] 02-13-2024 21:27-0400 Reason For Taking VItal Signs ANNELIESE PLNativoo [facility] 02-13-2024 21:27-0400 Respiratory rate 20 /min ANNELIESE PLUNK DO [facility] 02-13-2024 21:27-0400 Systolic Blood Pressure Non-Invasive 120 mm[Hg] ANNELIESE PLUNK DO [address] [place] [address] 02-13-2024 14:50-0400 Blood Pressure Cuff Size ANNELIESE PLUNK DO [address] [place] [address] 02-13-2024 14:50-0400 Blood Pressure Location ANNELIESE PLUNK DO [address] [place] [address] 02-13-2024 14:50-0400 Blood Pressure Method ANNELIESE PLUNK DO [address] [place] [address] 02-08-2024 22:20-0400 Heart rate 82 /min ANNELIESE PLUNK DO [address] [place] [address] 02-07-2024 22:08-0400 Heart rate 70 /min ANNELIESE PLUNK DO [address] [place] [address] 02-07-2024 14:57-0400 Heart rate 70 /min ANNELIESE PLUNK DO [address] [place] [address] 02-05-2024 07:36-0400 Heart rate 65 /min ANNELIESE PLUNK DO [address] [place] [address] 02-05-2024 02:51-0400 Body height 152.4 cm ANNELIESE PLUNK DO [address] [place] [address] 02-05-2024 02:51-0400 Body weight 76.8 kg ANNELIESE PLUNK DO [address] [place] [address] 02-05-2024 02:51-0400 Body weight 33.07 kg/m2 ANNELIESE PLUNK DO [address] [place] [address] 02-05-2024 02:10-0400 Body height 152.4 cm ANNELIESE PLUNK DO [address] [place] [address] 02-05-2024 02:10-0400 Body weight 76.8 kg ANNELIESE PLUNK DO [facility] 02-05-2024 02:10-0400 Body weight 33.07 kg/m2 ANNELIESE PLUNK DO [facility] 02-05-2024 01:51-0400 Heart rate 66 /min ANNELIESE PLUNK DO [facility] 02-05-2024 01:51-0400 Mean blood pressure 79 mm[Hg] ANNELIESE PLUNK DO [facility] 02-04-2024 23:33-0400 Body temperature 98.42 [degF] STEFANOCOLTON BUTTELGIN ICHTHYOLOGY TEACHER-ASSESSMENT TECHNICIAN [facility] 02-04-2024 23:33-0400 Diastolic Blood Pressure Non-Invasive 54 mm[Hg] STEFANO FILOMENAELGIN ICHTHYOLOGY TEACHER-ASSESSMENT TECHNICIAN [facility] 02-04-2024 23:33-0400 Heart rate 63 /min STEFANO FILOMENAELGIN ICHTHYOLOGY TEACHER-ASSESSMENT TECHNICIAN [facility] 02-04-2024 23:33-0400 Respiratory rate 16 /min STEFANOCOLTON BUTTELGIN ICHTHYOLOGY TEACHER-ASSESSMENT TECHNICIAN [facility] 02-04-2024 23:33-0400 Systolic Blood Pressure Non-Invasive 121 mm[Hg] STEFANO FILOMENAELGIN ICHTHYOLOGY TEACHER-ASSESSMENT TECHNICIAN [facility] 02-04-2024 20:11-0400 Body temperature 98.24 [degF] STEFANO FILOMENAELGIN ICHTHYOLOGY TEACHER-ASSESSMENT TECHNICIAN [facility] 02-04-2024 20:11-0400 Diastolic Blood Pressure Non-Invasive 67 mm[Hg] STEFANO FILOMENAELGIN ICHTHYOLOGY TEACHER-ASSESSMENT TECHNICIAN [facility] 02-04-2024 20:11-0400 Heart rate 77 /min STEFANO GRAHAM ICHTHYOLOGY TEACHER-ASSESSMENT TECHNICIAN [facility] 02-04-2024 20:11-0400 Respiratory rate 16 /min STEFANO CHRISN ICHTHYOLOGY TEACHER-ASSESSMENT TECHNICIAN [facility] 02-04-2024 20:11-0400 Systolic Blood Pressure Non-Invasive 94 mm[Hg] STEFANOCOLTON CHRISN ICHTHYOLOGY TEACHER-ASSESSMENT TECHNICIAN [facility] 02-04-2024 15:40-0400 Body temperature 98.06 [degF] STEFANOCOLTON BUTTNEN ICHTHYOLOGY TEACHER-ASSESSMENT TECHNICIAN [facility] 02-04-2024 15:40-0400 Diastolic Blood Pressure Non-Invasive 61 mm[Hg] STEFANO FILOMENANEN ICHTHYOLOGY TEACHER-ASSESSMENT TECHNICIAN [facility] 02-04-2024 15:40-0400 Heart rate 88 /min STEFANOCOLTON BUTTNEN ICHTHYOLOGY TEACHER-ASSESSMENT TECHNICIAN [facility] 02-04-2024 15:40-0400 Respiratory rate 16 /min STEFANOCOLTON BUTTNEN ICHTHYOLOGY TEACHER-ASSESSMENT TECHNICIAN [facility] 02-04-2024 15:40-0400 Systolic Blood Pressure Non-Invasive 127 mm[Hg] STEFANOCOLTON CHRISN ICHTHYOLOGY TEACHER-ASSESSMENT TECHNICIAN [facility] 02-04-2024 09:24-0400 Blood Pressure Cuff Size STEFANOCOLTON BUTTNEN ICHTHYOLOGY TEACHER-ASSESSMENT TECHNICIAN [facility] 02-04-2024 09:24-0400 Blood Pressure Location STEFANOCOLTON BUTTNEN ICHTHYOLOGY TEACHER-ASSESSMENT TECHNICIAN [facility] 02-04-2024 09:24-0400 Blood Pressure Method STEFANOCOLTON BUTTNEN ICHTHYOLOGY TEACHER-ASSESSMENT TECHNICIAN [facility] 02-04-2024 07:45-0400 Blood Pressure Cuff Size STEFANO FILOMENANEN ICHTHYOLOGY TEACHER-ASSESSMENT TECHNICIAN [facility] 02-04-2024 07:45-0400 Blood Pressure Location STEFANOCOLTON CHRISN ICHTHYOLOGY TEACHER-ASSESSMENT TECHNICIAN [facility] 02-04-2024 07:45-0400 Blood Pressure Method STEFANOCOLTON CHRISN ICHTHYOLOGY TEACHER-ASSESSMENT TECHNICIAN [facility] 02-03-2024 03:15-0400 Heart rate 66 /min STEFANO CHRISN ICHTHYOLOGY TEACHER-ASSESSMENT TECHNICIAN [facility] 02-02-2024 23:09-0400 Heart rate 65 /min STEFANOCOLTON BUTTNEN ICHTHYOLOGY TEACHER-ASSESSMENT TECHNICIAN [facility] 02-02-2024 18:45-0400 Heart rate 82 /min STEFANO CHRISN ICHTHYOLOGY TEACHER-ASSESSMENT TECHNICIAN [facility] 02-01-2024 12:41-0400 Body height 152.4 cm STEFANOCOLTON CHRISN ICHTHYOLOGY TEACHER-ASSESSMENT TECHNICIAN [facility] 02-01-2024 12:41-0400 Body weight 76.2 kg STEFANOCOLTON BUTTNEN ICHTHYOLOGY TEACHER-ASSESSMENT TECHNICIAN [facility] 02-01-2024 12:41-0400 Body weight 32.81 kg/m2 STEFANOCOLTON BUTTNEN ICHTHYOLOGY TEACHER-ASSESSMENT TECHNICIAN [facility] 02-01-2024 12:23-0400 Body height 152.4 cm STEFANOCOLTON BUTTNEN ICHTHYOLOGY TEACHER-ASSESSMENT TECHNICIAN [facility] 02-01-2024 12:23-0400 Body weight 76.2 kg STEFANOCOLTON BUTTNEN ICHTHYOLOGY TEACHER-ASSESSMENT TECHNICIAN [facility] 02-01-2024 12:23-0400 Body weight 32.81 kg/m2 STEFANOCOLTON BUTTNEN ICHTHYOLOGY TEACHER-ASSESSMENT TECHNICIAN [facility] 02-01-2024 07:01-0400 Body temperature 97.7 [degF] USMAN CHILDS MD FACP [facility] 02-01-2024 07:01-0400 Diastolic Blood Pressure Non-Invasive 60 mm[Hg] USMAN CHILDS MD FACP [facility] 02-01-2024 07:01-0400 Heart rate 82 /min USMAN CHILDS MD FACP [facility] 02-01-2024 07:01-0400 Respiratory rate 20 /min USMAN CHILDS MD FACP [facility] 02-01-2024 07:01-0400 Systolic Blood Pressure Non-Invasive 117 mm[Hg] USMAN CHILDS MD FACP [facility] 01-31-2024 20:07-0400 Body temperature 97.88 [degF] USMAN CHILDS MD FACP [facility] 01-31-2024 20:07-0400 Diastolic Blood Pressure Non-Invasive 61 mm[Hg] USMAN CHILDS MD FACP [facility] 01-31-2024 20:07-0400 Heart rate 85 /min USMAN CHILDS MD FACP [facility] 01-31-2024 20:07-0400 Respiratory rate 20 /min USMAN CHILDS MD FACP [facility] 01-31-2024 20:07-0400 Systolic Blood Pressure Non-Invasive 103 mm[Hg] USMAN CHILDS MD FACP [facility] 01-31-2024 11:05-0400 Heart rate 85 /min USMAN CHILDS MD FACP [facility] 01-31-2024 08:30-0400 Body temperature 98.6 [degF] USMAN CHILDS MD FACP [facility] 01-31-2024 07:29-0400 Diastolic Blood Pressure Non-Invasive 51 mm[Hg] USMAN CHILDS MD FACP [facility] 01-31-2024 07:29-0400 Respiratory rate 20 /min USMAN CHILDS MD FACP [facility] 01-31-2024 07:29-0400 Systolic Blood Pressure Non-Invasive 111 mm[Hg] USMAN CHILDS MD FACP [facility] 01-30-2024 07:54-0400 Heart rate 98 /min USMAN CHILDS MD FACP [facility] 01-29-2024 19:38-0400 Reason For Taking VItal Signs USMAN CHILDS MD FACP [facility] 01-29-2024 13:15-0400 Heart rate 94 /min USMAN CHILDS MD FACP [facility] 01-29-2024 09:19-0400 Heart rate 67 /min USMAN CHILDS MD FACP [facility] 01-28-2024 19:14-0400 Reason For Taking VItal Signs USMAN CHILDS MD FACP [facility] 01-27-2024 19:35-0400 Heart rate 78 /min USMAN CHILDS MD FACP [facility] 01-26-2024 20:05-0400 Heart rate 84 /min USMAN CHILDS MD FACP [facility] 01-25-2024 19:58-0400 Heart rate 78 /min USMAN CHILDS MD FACP [facility] 01-22-2024 17:48-0400 Body height 152.4 cm USMAN CHILDS MD FACP [facility] 01-22-2024 17:48-0400 Body weight 76.2 kg USMAN HCILDS MD FACP [facility] 01-22-2024 17:48-0400 Body weight 32.81 kg/m2 USMAN CHILDS MD FACP [facility] 12-13-2023 12:48-0400 Body mass index (BMI) [Ratio] 33.45 kg/m2 Ester Suppan ICHTHYOLOGY TEACHER.YARD TRUCK DRIVER Work Phone: [facility] 12-13-2023 12:48-0400 Body weight 78.29 kg Ester Suppan ICHTHYOLOGY TEACHER.YARD TRUCK DRIVER Work Phone: [facility] 12-13-2023 12:48-0400 Diastolic blood pressure 66 mm[Hg] Ester Suppan ICHTHYOLOGY TEACHER.YARD TRUCK DRIVER Work Phone: [facility] 12-13-2023 12:48-0400 Heart rate 60 /min Ester Suppan ICHTHYOLOGY TEACHER.YARD TRUCK DRIVER Work Phone: [facility] 12-13-2023 12:48-0400 Respiratory rate 20 /min Ester Suppan ICHTHYOLOGY TEACHER.YARD TRUCK DRIVER Work Phone: [facility] 12-13-2023 12:48-0400 SaO2% (BldA) [Mass fraction] 98 % Ester Suppan ICHTHYOLOGY TEACHER.YARD TRUCK DRIVER Work Phone: [facility] 12-13-2023 12:48-0400 Systolic blood pressure 100 mm[Hg] Ester Suppan ICHTHYOLOGY TEACHER.YARD TRUCK DRIVER Work Phone: [facility] 12-11-2023 07:56-0400 Diastolic Blood Pressure Non-Invasive 64 mm[Hg] USMAN CHILDS MD FACP [facility] 12-11-2023 07:56-0400 Systolic Blood Pressure Non-Invasive 120 mm[Hg] USMAN CHILDS MD FACP [facility] 12-11-2023 06:47-0400 Body temperature 97.88 [degF] SUMAN CHILDS MD FACP [address] [place] [address] 12-11-2023 06:47-0400 Diastolic Blood Pressure Non-Invasive 60 mm[Hg] USMAN CHILDS MD FACP [address] [place] [address] 12-11-2023 06:47-0400 Heart rate 87 /min USMAN CHILDS MD FACP [address] [place] [address] 12-11-2023 06:47-0400 Reason For Taking VItal Signs USMAN CHILDS MD FACP [address] [place] [address] 12-11-2023 06:47-0400 Respiratory rate 18 /min USMAN CHILDS MD FACP [facility] 12-11-2023 06:47-0400 Systolic Blood Pressure Non-Invasive 117 mm[Hg] USMAN CHILDS MD FACP [facility] 12-10-2023 19:44-0400 Body temperature 97.7 [degF] USMAN CHILDS MD FACP [address] [place] [address] 12-10-2023 19:44-0400 Diastolic Blood Pressure Non-Invasive 57 mm[Hg] USMAN CHILDS MD FACP [facility] 12-10-2023 19:44-0400 Heart rate 85 /min USMAN CHILDS MD FACP [facility] 12-10-2023 19:44-0400 Reason For Taking VItal Signs USMAN CHILDS MD FACP [facility] 12-10-2023 19:44-0400 Respiratory rate 18 /min USMAN CHILDS MD FACP [facility] 12-10-2023 19:44-0400 Systolic Blood Pressure Non-Invasive 110 mm[Hg] USMAN CHILDS MD FACP [address] [place] [address] 12-10-2023 06:10-0400 Body temperature 97.7 [degF] USMAN CHILDS MD FACP [address] [place] [address] 12-10-2023 06:10-0400 Heart rate 84 /min USMAN CHILDS MD FACP [address] [place] [address] 12-10-2023 06:10-0400 Reason For Taking VItal Signs USMAN CHILDS MD FACP [address] [place] [address] 12-10-2023 06:10-0400 Respiratory rate 18 /min USMAN CHILDS MD FACP [facility] 12-09-2023 20:06-0400 Heart rate 84 /min USMAN CHILDS MD FACP [facility] 12-07-2023 19:37-0400 Heart rate 78 /min USMAN CHILDS MD FACP [address] [place] [address] 12-06-2023 19:42-0400 Heart rate 84 /min USMAN CHILDS MD FACP [address] [place] [address] 12-06-2023 11:25-0400 Body weight 79.09 kg USMAN CHILDS MD FACP [address] [place] [address] 12-06-2023 07:00-0400 Heart rate 83 /min USMAN CHILDS MD FACP [facility] 12-04-2023 20:19-0400 Heart rate 92 /min USMAN CHILDS MD FACP [facility] 11-30-2023 06:24-0400 Body weight 80.6 kg USMAN CHILDS MD FACP [facility] 11-26-2023 21:19-0400 Body height 152.4 cm USMAN CHILDS MD FACP [facility] 11-26-2023 21:19-0400 Body weight 80.6 kg USMAN CHILDS MD FACP [facility] 11-26-2023 21:19-0400 Body weight 34.7 kg/m2 USMAN CHILDS MD FACP [facility] 11-26-2023 20:37-0400 Body temperature 98.8 [degF] Dr. Carl Encarnacion Work Phone: [facility] 11-26-2023 20:37-0400 Diastolic blood pressure 72 mm[Hg] Dr. Carl Encarnacion Work Phone: [facility] 11-26-2023 20:37-0400 Heart rate 115 /min Dr. Carl Encarnacion Work Phone: [facility] 11-26-2023 20:37-0400 Respiratory rate 18 /min Dr. Carl Encarnacion Work Phone: [facility] 11-26-2023 20:37-0400 SaO2% (BldA) [Mass fraction] 97 % Dr. Carl Encarnacion Work Phone: [facility] 11-26-2023 20:37-0400 Systolic blood pressure 139 mm[Hg] Dr. Carl Encarnacion Work Phone: [facility] 11-23-2023 12:51-0400 Body height 152.[address] Carl Encarnacion Work Phone: [facility] 11-23-2023 12:51-0400 Body mass index (BMI) [Ratio] 34.3 kg/m2 Dr. Carl Encarnacion Work Phone: [facility] 11-23-2023 12:51-0400 Body weight 79.[address] Carl Encarnacion Work Phone: [facility] 11-23-2023 11:58-0400 Diastolic blood pressure 102 mm[Hg] [facility] 11-23-2023 11:58-0400 Heart rate 96 /min [facility] 11-23-2023 11:58-0400 Respiratory rate 20 /min [facility] 11-23-2023 11:58-0400 SaO2% (BldA) [Mass fraction] 95 % [facility] 11-23-2023 11:58-0400 Systolic blood pressure 120 mm[Hg] [facility] 11-23-2023 11:49-0400 Body temperature 98 [degF] [facility] 11-23-2023 08:07-0400 Body height 152.4 cm [facility] 11-23-2023 08:07-0400 Body mass index (BMI) [Ratio] 36.3 kg/m2 [facility] 11-23-2023 08:07-0400 Body weight 84.3 kg [facility] 07-26-2023 11:33-0500 Body temperature 98.1 [degF] Prosper Amador Work Phone: [facility] 07-26-2023 11:33-0500 Body weight 73.94 kg Prosper Amador Work Phone: [facility] 07-26-2023 11:33-0500 Diastolic blood pressure 69 mm[Hg] Prosper Amador Work Phone: [facility] 07-26-2023 11:33-0500 Heart rate 106 /min Prosper Amador Work Phone: [facility] 07-26-2023 11:33-0500 SaO2% (BldA) [Mass fraction] 98 % Prosper Amaodr Work Phone: [facility] 07-26-2023 11:33-0500 Systolic blood pressure 142 mm[Hg] Prosper Amador Work Phone: [facility] 07-07-2023 08:34-0500 Body height 153 cm Wilmar Masci DO Work Phone: [facility] 07-07-2023 08:34-0500 Body temperature 98.8 [degF] Wilmar Masci DO Work Phone: [facility] 07-07-2023 08:34-0500 Body weight 75.3 kg Wilmar Masci DO Work Phone: [facility] 07-07-2023 08:34-0500 Diastolic blood pressure 84 mm[Hg] Wilmar Masci DO Work Phone: [facility] 07-07-2023 08:34-0500 Heart rate 92 /min Wilmar Masci DO Work Phone: [facility] 07-07-2023 08:34-0500 SaO2% (BldA) [Mass fraction] 98 % Wilmar Masci DO Work Phone: [facility] 07-07-2023 08:34-0500 Systolic blood pressure 150 mm[Hg] Wilmar Masci DO Work Phone: [facility] 06-02-2023 13:59-0400 Body temperature 97.9 [degF] Wilmar Masci DO Work Phone: [facility] 06-02-2023 13:59-0400 Body weight 73.48 kg Wilmar Masci DO Work Phone: [facility] 06-02-2023 13:59-0400 Diastolic blood pressure 71 mm[Hg] Wilmar Masci DO Work Phone: [facility] 06-02-2023 13:59-0400 Heart rate 96 /min Wilmar Masci DO Work Phone: [facility] 06-02-2023 13:59-0400 SaO2% (BldA) [Mass fraction] 97 % Wilmar Forbes DO Work Phone: [facility] 06-02-2023 13:59-0400 Systolic blood pressure 121 mm[Hg] Wilmar Forbes DO Work Phone: [facility] 05-03-2023 15:18-0400 Body temperature 97.5 [degF] Eliot Castillo MD Work Phone: [facility] 05-03-2023 15:18-0400 Body weight 72.94 kg Eliot Castillo MD Work Phone: [facility] 05-03-2023 15:18-0400 Diastolic blood pressure 66 mm[Hg] Eliot Castillo MD Work Phone: [facility] 05-03-2023 15:18-0400 Heart rate 93 /min Eliot Castillo MD Work Phone: [facility] 05-03-2023 15:18-0400 Systolic blood pressure 144 mm[Hg] Eliot Castillo MD Work Phone: [facility] 04-06-2023 14:45-0400 Body height 156 cm [facility] 04-06-2023 14:45-0400 Body weight 72.58 kg [facility] 01-27-2023 10:22-0400 Body temperature 98.29 [degF] Kristen Eugene PA-C Work Phone: [facility] 01-27-2023 10:22-0400 Diastolic blood pressure 70 mm[Hg] Kristen Eugene PA-C Work Phone: [facility] 01-27-2023 10:22-0400 Heart rate 110 /min Kristen Eugene PA-C Work Phone: [facility] 01-27-2023 10:22-0400 Respiratory rate 16 /min Kristen Eugene PA-C Work Phone: [facility] 01-27-2023 10:22-0400 Systolic blood pressure 110 mm[Hg] Kristen Eugene PA-C Work Phone: [facility] 01-12-2023 10:22-0400 Body height 160.02 cm [facility] 01-12-2023 10:22-0400 Body mass index (BMI) [Ratio] 31.1 kg/m2 [facility] 01-12-2023 10:22-0400 Body temperature 97.6 [degF] [facility] 01-12-2023 10:22-0400 Body weight 79.78 kg [facility] 01-12-2023 10:22-0400 Diastolic blood pressure 83 mm[Hg] [facility] 01-12-2023 10:22-0400 Heart rate 92 /min [facility] 01-12-2023 10:22-0400 Respiratory rate 16 /min [facility] 01-12-2023 10:22-0400 SaO2% (BldA) [Mass fraction] 100 % [facility] 01-12-2023 10:22-0400 Systolic blood pressure 146 mm[Hg] [facility] 07-19-2022 11:20-0500 Body temperature 98.01 [degF] Isabel Older ICHTHYOLOGY TEACHER.ASSESSMENT TECHNICIAN Work Phone: [facility] 07-19-2022 11:20-0500 Body weight 75.75 kg Isabel Older ICHTHYOLOGY TEACHER.ASSESSMENT TECHNICIAN Work Phone: [facility] 07-19-2022 11:20-0500 Diastolic blood pressure 82 mm[Hg] Isabel Older ICHTHYOLOGY TEACHER.ASSESSMENT TECHNICIAN Work Phone: [facility] 07-19-2022 11:20-0500 Heart rate 118 /min Isabel Older ICHTHYOLOGY TEACHER.ASSESSMENT TECHNICIAN Work Phone: [facility] 07-19-2022 11:20-0500 Respiratory rate 20 /min Isabel Older ICHTHYOLOGY TEACHER.ASSESSMENT TECHNICIAN Work Phone: [facility] 07-19-2022 11:20-0500 SaO2% (BldA) [Mass fraction] 95 % Isabel Older ICHTHYOLOGY TEACHER.ASSESSMENT TECHNICIAN Work Phone: [facility] 07-19-2022 11:20-0500 Systolic blood pressure 140 mm[Hg] Isabel Older ICHTHYOLOGY TEACHER.ASSESSMENT TECHNICIAN Work Phone: [facility] 06-26-2022 11:08-0500 Diastolic blood pressure 72 mm[Hg] Carl Encarnacion MD Work Phone: [facility] 06-26-2022 11:08-0500 Systolic blood pressure 130 mm[Hg] Carl Encarnacion MD Work Phone: [facility] 06-26-2022 10:45-0500 Body weight 76.66 kg Carl Encarnacion MD Work Phone: [facility] 06-26-2022 10:45-0500 Heart rate 90 /min Carl Encarnacion MD Work Phone: [facility] 06-26-2022 10:45-0500 Respiratory rate 20 /min Carl Encarnacion MD Work Phone: [facility] 12-12-2021 12:20-0400 Diastolic blood pressure 94 mm[Hg] Carl Encarnacion MD Work Phone: [facility] 12-12-2021 12:20-0400 Systolic blood pressure 182 mm[Hg] Carl Encarnacion MD Work Phone: [facility] 12-12-2021 11:56-0400 Body weight 75.3 kg Carl Encarnacion MD Work Phone: [facility] 12-12-2021 11:56-0400 Heart rate 82 /min Carl Encarnacion MD Work Phone: [facility] 12-12-2021 11:56-0400 Respiratory rate 16 /min Carl Encarnacion MD Work Phone: [facility] Encounters Encounter Date Encounter Type Care Provider Facility Start: 02-12-2025 ambulatory Efewongbe Oleghe OLS Fa cility:[facility] Start: 01-22-2025 ambulatory Efewongbe Oleghe OLS Fa cility:[facility] Start: 01-18-2025 ambulatory Efewongbe Oleghe OLS Fa cility:[facility] Start: 12-11-2024 End: 12-11-2024 ambulatory Efewongbe Oleghe OLS Facility:[facility] Start: 12-05-2024 End: 12-05-2024 ambulatory Savi Anusha PRESSURE WELDER Facility:[facility] Start: 12-04-2024 End: 12-05-2024 ambulatory Efannmarie Graye OLS Facility:[facility] Start: 11-22-2024 End: 11-22-2024 ambulatory Savi Anusha PRESSURE WELDER Facility:[facility] Start: 11-17-2024 End: 11-17-2024 ambulatory Savi Anusha PRESSURE WELDER Facility:[facility] Start: 11-07-2024 End: 11-07-2024 ambulatory Efannmarie Graye Facility:[facility] Start: 11-02-2024 End: 11-02-[address] Carl Encarnacion MD Work Phone: [facility] Work Phone: Start: 11-02-2024 End: 11-02-2024 [facility]: [facility]-02-[facility]24 [facility] Start: 11-02-2024 End: 11-02-2024 ambulatory Lasha VASQUEZ Facility:[facility] Start: 10-30-2024 End: 10-30-[address] Carl Encarnacion MD Work Phone: [facility] Work Phone: Start: 10-30-2024 End: 10-30-2024 [facility] Start: 10-30-2024 [facility] Start: 10-30-2024 End: 10-30-2024 ambulatory Lasha Pro OLS Facility:[facility] Start: 10-19-2024 End: 10-19-2024 ambulatory Jim SANTOS Facility:[facility] Start: 10-19-2024 End: 10-19-2024 Patient encounter procedure Jim SANTOS -[facility] Work Phone: Start: 10-16-2024 End: 10-16-[address] Carl Encarnacion MD Work Phone: [facility] Work Phone: Start: 10-16-2024 End: 10-16-2024 Departed Referred Lasha Pro MD -[facility] Start: 10-16-2024 End: 10-16-2024 ambulatory Efewlesley Pro OLS Facility:[facility] Start: 09-27-2024 Registered Referred Lasha Pro MD [facility] Start: 09-27-2024 End: 09-27-2024 ambulatory Savi Tavares NP Facility:[facility] Start: 09-27-2024 End: 09-27-2024 Patient encounter procedure Savi Tavares PRESSURE WELDER- -[facility] Work Phone: Start: 09-25-2024 ambulatory Efewlesley Pro OLS Fa cility:[facility] Start: 09-25-2024 Registered Referred Lasha Pro MD [facility] Start: 09-18-2024 ambulatory Efewlesley Pro OLS Fa cility:[facility] Start: 09-18-2024 [facility] Start: 09-14-2024 ambulatory Efewlesley Pro OLS Fa cility:[facility] Start: 09-14-2024 [facility] Start: 09-12-2024 End: 09-12-2024 ambulatory Efewlesley Pro Facility:[facility] Start: 09-12-2024 End: 09-12-[address] Lasha Pro MD -[facility] Work Phone: Start: 09-03-2024 ambulatory Efewlesley Graye OLS Fa cility:[facility] Start: 09-03-2024 [facility] Start: 08-15-[address] ZACKARY WALLER MD Facility:[facility] Start: 08-11-2024 End: 08-11-2024 ambulatory Savi Tavares PRESSURE WELDER Facility:[facility] Start: 08-11-2024 End: 08-11-2024 Patient encounter procedure Savi Tavares PRESSURE WELDER-C -[facility] Work Phone: Start: 08-07-2024 ambulatory Efewongbe Oleghe OLS Fa cility:[facility] Start: 08-07-2024 Registered Referred Lasha Pro MD [facility] Start: 07-11-2024 End: 07-11-2024 ambulatory Efewongbe Oleghe Facility:[facility] Start: 06-22-2024 End: 06-22-2024 ambulatory Carlsuman Diazey Facility:[facility] Start: 06-19-2024 ambulatory Efewongbe Oleghe OLS Fa cility:[facility] Start: 05-22-2024 End: 05-22-2024 ambulatory Efewongbe Oleghe OLS Facility:[facility] Start: 05-16-2024 End: 05-16-2024 ambulatory Carlsuman Diazey Facility:[facility] Start: 05-15-2024 ambulatory Efewongbe Oleghe OLS Fa cility:[facility] Start: 05-08-2024 ambulatory Efewongbe Oleghe OLS Fa cility:[facility] Start: 05-01-2024 End: 05-01-2024 ambulatory Efewongbe Oleghe OLS Facility:[facility] Start: 04-24-2024 ambulatory Efewongbe Oleghe OLS Fa cility:[facility] Start: 04-18-2024 End: 04-18-2024 ambulatory Savi Tavares PRESSURE WELDER Facility:[facility] Start: 04-17-2024 ambulatory Carl Alejandra Facility :[facility] Start: 04-11-2024 ambulatory Carl Alejandra Facility :[facility] Start: 04-03-2024 ambulatory Carl Alejandra Facility :[facility] Start: 03-27-2024 ambulatory Carl Alejadnra Facility :[facility] Start: 03-20-2024 End: 03-20-2024 ambulatory Sujata Mejia Facility:[facility] Start: 03-20-2024 End: 03-20-2024 ambulatory Carl Encarnacion Facility:[facility] Start: 03-13-2024 ambulatory Efcachorroongphilip Graye OLS Fa cility:[facility] Start: 03-10-2024 End: 03-10-2024 ambulatory [facility] PRESS[facility] WELDER Facility:[facility] Start: 03-06-2024 ambulatory Efewongphilip Graye OLS Fa cility:[facility] Start: 02-28-2024 ambulatory Efewongbe Olehelene OLS Fa cility:[facility] Start: 02-23-2024 ambulatory Efewongbe Marinae OLS Fa cility:[facility] Start: 02-21-2024 End: 02-21-2024 ambulatory [facility] PRESSURE WELDER Facility:[facility] Start: 02-15-2024 Refill Carl cassidy MD Work Phone: [facility] Comment on above: Refill Request Start: 02-05-2024 End: 02-14-2024 Evaluation and management of inpatient ANNELIESE CHAIREZ [facility] Start: 02-01-2024 End: 02-05-2024 Evaluation and management of inpatient STEFANO GRAHAM ICHTHYOLOGY TEACHER-ASSESSMENT TECHNICIAN [facility] Start: 01-25-2024 ambulatory Carl cassidy MD Work Phone: [facility] Start: 01-22-2024 End: 02-01-2024 Evaluation and management of inpatient USMAN CHILDS MD FAC [facility] Start: 01-20-2024 Chart abstracting Carl barragan MD Work Phone: [facility] Comment on above: Outside Heart Cath Start: 01-13-2024 End: 01-13-2024 ambulatory CARL ENCARNACION Facility:[facility] Start: 01-11-2024 Telephone encounter Carl Encarnacion MD Work Phone: [facility] Comment on above: Patient Update Start: 01-07-2024 Telephone encounter Ester Bejarano APRN.YARD TRUCK DRIVER Work Phone: [facility] [place] Comment on above: Medication Problem Start: 01-06-2024 Telephone encounter Ester Bejarano APRN.YARD TRUCK DRIVER Work Phone: [facility] Comment on above: Results OT Update Start: 01-04-2024 Refill Carl cassidy MD Work Phone: [facility] Comment on above: Refill Request Start: 12-25-2023 Home visit Carl cassidy MD Work Phone: [facility] Comment on above: Essential hypertensi on, malignant (Primary Dx) Start: 12-21-2023 Chart abstracting Carl barragan MD Work Phone: [facility] Comment on above: Ext / Discharge Summ edwina Start: 12-16-2023 Telephone encounter Ester Bejarano APRN.YARD TRUCK DRIVER Work Phone: [facility] Start: 12-15-2023 Telephone encounter Carl Encarnacion MD Work Phone: [facility] Start: 12-14-2023 Telephone encounter Carl Encarnacion MD Work Phone: [facility] Comment on above: Patient Update from [facility] Start: 12-14-2023 End: 12-14-2023 ambulatory CARL ENCARNACION Facility:[facility] Start: 12-13-2023 Telephone encounter Carl Encarnacion MD Work Phone: [facility] Comment on above: [facility]-ve rbal ordes requeted Start: 12-13-2023 End: 12-13-2023 Office outpatient visit 15 minutes Ester Bejarano APRN.YARD TRUCK DRIVER Work Phone: [facility] Comment on above: Recurrent UTI (urina ry tract infection) (Primary Dx); Essential hypertension; Malignant neoplasm of ovary, unspecified laterality (HCC); Aortic stenosis, moderate Start: 12-13-2023 End: 01-11-2024 ambulatory CARL ENCARNACION Facility:[facility] Start: 12-06-2023 Refill Carl cassidy MD Work Phone: [facility] Comment on above: Refill Request Start: 11-26-2023 End: 12-11-2023 Evaluation and management of inpatient USMAN CHILDS MD FAC [facility] Start: 11-26-2023 Non-patient / Non-visit Dr. Deandre Encarnacion Work Phone: [facility] Work Phone: Start: 11-25-2023 Non-patient / Non-visit Dr. Deandre Encarnacion Work Phone: [facility] Work Phone: Start: 11-24-2023 Chart abstracting Keily Rico [facility] Comment on above: Hospital Admission Start: 11-24-2023 Non-patient / Non-visit Dr. Deandre Encarnacion Work Phone: [facility] Work Phone: Start: 11-23-2023 End: 11-26-2023 [facility] Work [facility] Start: 10-07-2023 Refill Carl cassidy MD Work Phone: [facility] Comment on above: Refill Request Start: 09-16-[address] ZACKARY WALLER MD Facility:[facility] Start: 09-09-2023 End: 09-09-[address] ZACKARY WALLER MD Facility:[facility] Start: 09-09-2023 End: 09-09-[address] ZACKARY WALLER MD [facility] Start: 08-18-2023 End: 08-18-2023 ambulatory CARL ENCARNACION Facility:[facility] Start: 07-26-2023 End: 07-26-2023 Patient encounter procedure Prosper Solanoight Work Phone: [facility] Start: 07-26-2023 End: 07-26-2023 ambulatory Prosper Amador Work Phone: Hematology/Oncology Comment on above: 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) Start: 07-16-2023 Telephone encounter Wilmar perales DO Work Phone: Hematology/Oncology Start: 07-14-2023 End: 07-14-2023 ambulatory CARL ENCARNACION Facility:[facility] Start: 07-13-2023 Orders Only Wilmar Davies Work Phone: Hematology/Oncology Comment on above: 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) Start: 07-12-2023 Telephone encounter Carl Encarnacion MD Work Phone: [facility] Comment on above: Medication Problem Start: 07-07-2023 End: 07-07-2023 Patient encounter procedure Wilmar Forbes DO Work Phone: [facility] Start: 07-07-2023 End: 07-07-2023 ambulatory Wilmar Forbes DO Work Phone: Hematology/Oncology Comment on above: 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) Start: 06-17-2023 Telephone encounter Korin Eduardo matology/Oncology Comment on above: Inspector [employer] - [employer] ther (Toxicity Check (Carboplatin)) Start: 06-11-2023 Telephone encounter Korin Eduardo matology/Oncology Comment on above: Inspector [employer] - O ther (C1D1 Post Treatment Call (Carboplatin) ) Medication Problem Start: 06-10-2023 End: 06-10-2023 ambulatory CARL ENCARNACION Facility:[facility] Start: 06-07-2023 Refill Carl cassidy MD Work Phone: [facility] Comment on above: Refill Request Inspector [employer] - [employer]r (Orders ) Start: 06-04-2023 End: 06-04-2023 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 [facility] Work Phone: Hematology/Oncology Comment on above: Encounter for educat ion (Primary Dx) Start: 06-02-2023 End: 06-02-2023 ambulatory Wilmar Forbes DO Work Phone: Hematology/Oncology Comment on above: Ovarian cancer on ri ght (HCC) (Primary Dx) Start: 06-02-2023 End: 06-02-2023 Patient encounter procedure Wilmar Forbes DO Work Phone: [facility] Start: 06-02-2023 Telephone encounter Korin Mantilla RN He matology/Oncology Comment on above: Inspector Golf Ball - O ther (Introduction ) AVS 06/02/23, CHEMO START Start: 05-31-2023 Home visit Carl cassidy MD Work Phone: Family [facility] [place] Comment on above: 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 (Primary Dx) Start: 05-17-2023 End: 05-17-2023 ambulatory CARL ENCARNACION Facility:[facility] Start: 05-13-2023 Telephone encounter Carl Encarnacion MD Work Phone: Family [facility] [place] Comment on above: Nursing Plan of Care Start: 05-03-2023 End: 05-03-2023 ambulatory Eliot Castillo MD Work Phone: Gynecology Comment on above: Ovarian cancer on ri ght (HCC) (Primary Dx); Post-operative state Start: 05-03-2023 End: 05-03-2023 Patient encounter procedure Eliot Castillo MD Work Phone: [facility] Start: 05-03-2023 End: 05-03-2023 ambulatory CARL ENCARNACION Facility:[facility] Start: 05-01-2023 Refill Annmarie fair APRN.ASSESSMENT TECHNICIAN Work Phone: [facility] [place] Comment on above: Refill Request Start: 04-09-2023 Telephone encounter Annmarie garcia APRN.ASSESSMENT TECHNICIAN Work Phone: Family [facility] [place] Comment on above: home health calling Start: 04-07-2023 Encounter for other preprocedural examination ELIOT CASTILLO [facility] Start: 04-07-2023 End: 04-14-2023 Evaluation and management of inpatient ELIOT CASTILLO Facility:[facility] Start: 04-06-2023 End: 04-06-2023 Admission to establishment Pacc Main [facility] Start: 04-06-2023 Encounter for other preprocedural examination ELIOT CASTILLO [facility] Start: 04-06-2023 End: 04-06-2023 ambulatory Ousmane Jones APRN.CNP, DNP Work Phone: Pre Anesthesia Comment on above: preop instructions Pre-op evaluation (P rimary Dx); Acquired hypothyroidism; Essential hypertension; Gastroesophageal reflux disease without esophagitis; History of pulmonary embolism; Aortic stenosis, moderate Start: 04-06-2023 E-mail encounter fro mary caregiver Ousmane Jones APRN.CNP, DNP Work Phone: [facility] Start: 04-06-2023 End: 04-06-2023 Preprocedural examination done Ousmane Jones APRN.CNP, DNP Work Phone: [facility] Work Phone: Start: 04-06-2023 Telephone encounter Ousmane stone APRN.CNP, DNP Work Phone: Pre Anesthesia Start: 03-24-2023 Telephone encounter Dari moreno MD Work Phone: [facility] Comment on above: Appointment Patient Update Start: 03-23-2023 End: 03-23-2023 ambulatory CARL ENCARNACION Facility:[facility] Start: 03-22-2023 End: 03-22-2023 Preprocedural examination done Annmarie Mendoza APRN.ASSESSMENT TECHNICIAN Work Phone: [facility] Work Phone: Start: 03-22-2023 Telephone encounter Tuyet Lorenz RN Gy necology Comment on above: Pre op instructions Results Start: 03-22-2023 End: 03-22-2023 Subsequent hospital visit by physician X[facility] Comment on above: Ovarian mass [N83.8] Start: 03-16-2023 Telephone encounter Ely oshea MD Work Phone: OB/Gynecology Comment on above: Referral Information Start: 03-09-2023 End: 03-09-2023 ambulatory CARL ENCARNACION Facility:[facility] Start: 03-09-2023 End: 03-09-2023 ambulatory CARL ENCARNACION Facility:[facility] Start: 03-09-2023 End: 03-09-2023 Subsequent hospital visit by physician Mari [facility] (I-Stat) Work Phone: Cat Scan Comment on above: Pelvic mass [R19.00] Start: 03-02-2023 End: 03-02-2023 ambulatory [facility] Work Phone: Start: 03-02-2023 End: 03-02-2023 Patient encounter procedure [facility]-Laboratory, Specimen Work Phone: Start: 02-08-2023 Refill Carl cassidy MD Work Phone: [facility] Comment on above: Refill Request Start: 02-02-2023 End: 02-02-2023 ambulatory America Camejo PT [facility] Comment on above: Sciatica, right side (Primary Dx); Falls, subsequent encounter Start: 02-02-2023 Telephone encounter Kristen brewer PA-C Work Phone: [facility] Comment on above: Results Start: 01-27-2023 End: 01-27-2023 Subsequent hospital visit by physician Manju [facility] Work Phone: Radiology Comment on above: Sciatica, right side [M54.31] Start: 01-27-2023 End: 01-27-2023 ambulatory CARL ENCARNACION Facility:[facility] Start: 01-27-2023 End: 01-27-2023 Patient encounter procedure Kristen Eugene PA-C Work Phone: [facility] Comment on above: Sciatica, right side (Primary Dx); Fall, subsequent encounter Start: 01-25-2023 Telephone encounter Kristen brewer PA-C Work Phone: [facility] Comment on above: Results Start: 01-21-2023 Telephone encounter Carl Encarnacion MD Work Phone: [facility] [place] Comment on above: Results Start: 01-12-2023 End: 01-12-2023 Emergency department patient visit [facility]-Emergency Department Start: 01-12-2023 End: 01-12-2023 Patient encounter procedure Barrera Daley APRN.ASSESSMENT TECHNICIAN Work Phone: [facility] Comment on above: Severe back pain (Pr imary Dx); Fall, initial encounter Start: 11-06-2022 Refill Carl cassidy MD Work Phone: [facility] Comment on above: Refill Request Start: 09-10-2022 Refill [facility] MD [facility] Phone[facility] Comment on above: Refill Request Start: 07-20-2022 Telephone encounter Barrera greene APRN.ASSESSMENT TECHNICIAN Work Phone: [facility] Comment on above: Results Start: 07-20-2022 End: 07-20-2022 Subsequent hospital visit by physician Xr [facility] Work Phone: Radiology Comment on above: Acute cough [R05.1] Start: 07-19-2022 End: 07-19-2022 Patient encounter procedure Isabel Roca APRN.ASSESSMENT TECHNICIAN Work Phone: [facility] Comment on above: Acute cough (Primary Dx); Wheezing Start: 06-29-2022 Telephone encounter [facility] Encarnacion MD [facility] Comment on above: Results Start: 06-26-2022 End: 06-26-2022 Patient encounter procedure Carl Encarnacion MD Work Phone: [facility] Comment on above: Essential hypertensi on (Primary Dx); Mixed hyperlipidemia; Gastroesophageal reflux disease without esophagitis; Acquired hypothyroidism; Aortic stenosis, moderate; Osteoarthritis of multiple joints, unspecified osteoarthritis type; Encounter for immunization; Advance directive discussed with patient Start: 06-10-2022 Refill Carl cassidy MD Work Phone: [address] [place] [address] Comment on above: Refill Request Start: 06-05-2022 Refill Carl cassidy MD Work Phone: [facility] [place] Comment on above: Refill Request Start: 05-25-2022 Telephone encounter Carl Encarnacion MD Work Phone: [facility] [place] Comment on above: patient refused test ing Start: 05-13-2022 Telephone encounter Carl Encarnacion MD Work Phone: [facility] [place] Comment on above: Orders Start: 05-01-2022 Telephone encounter Carl Encarnacion MD Work Phone: [facility] [place] Comment on above: returning oxygen (Re turning oxygen to [employer]) Start: 03-16-2022 Telephone encounter Carl Encarnacion MD Work Phone: [facility] [place] Comment on above: Patient Question Start: 03-13-2022 Refill Carl cassidy MD Work Phone: [facility] [place] Comment on above: Prescription Refills Start: 12-15-2021 Telephone encounter Carl Encarnacion MD Work Phone: [facility] [place] Comment on above: Results Start: 12-12-2021 End: 12-12-2021 Patient encounter procedure Carl Encarnacion MD Work Phone: [facility] [place] Comment on above: Essential hypertensi on (Primary Dx); Mixed hyperlipidemia; Acquired hypothyroidism; History of pulmonary embolism; Gastroesophageal reflux disease without esophagitis; Osteoarthritis of multiple joints, unspecified osteoarthritis type; Medication management Start: 11-28-2021 Refill Carl cassidy MD Work Phone: [facility] [place] Comment on above: Refill Request Start: 11-17-2021 Telephone encounter Carl Encarnacion MD Work Phone: [facility] [place] Comment on above: urine culture Start: 11-12-2021 Telephone encounter Carl Encarnacion MD Work Phone: [facility] [place] Comment on above: Results Start: 08-07-2021 Patient encounter procedure Carl Encarnacion MD Work Phone: [facility] Work Phone: Start: 06-19-2021 Patient encounter status [facility] Start: 02-05-2021 Patient encounter status Tenisha Encarnacion MD Work Phone: [facility] Work Phone: Procedures Date Procedure Procedure Detail Performing Clinician Start: 09-27-[address] Tenisha Encarnacion MD Work Phone: Start: 09-25-[address] Tenisha Encarnacion MD Work Phone: Start: 09-14-[address] Tenisha Encarnacion MD Work Phone: Start: 09-03-[address] Tenisha Encarnacion MD Work Phone: Start: 01-21-2024 Cardiac catheterization USMAN CHILDS MD [facility] Start: 11-23-[address] Tenisha Encarnacion Work Phone: Start: 11-23-2023 Plain chest X-ray Start: 09-09-2023 Echocardiography USMAN CHILDS MD [facility] Comment on above: Summary: 1. Left ventricle: [...] ast 12 lds i&r only Annmarie Mendoza ICHTHYOLOGY TEACHER.ASSESSMENT TECHNICIAN Work Phone: Start: 03-09-2023 Ct abdomen & pelvis w/contrast material Carl Encarnacion MD Work Phone: Start: 01-27-2023 Radex spine lumbosac ral 2/3 views Kristen Eugene PA-C Work Phone: Start: 01-12-2023 X-ray of lumbar spin e, two or three views Start: 07-20-2022 Radiologic exam ches t 2 views Isabel Jansen ICHTHYOLOGY TEACHER.ASSESSMENT TECHNICIAN Work Phone: Start: 06-26-2022 INFLUENZA SEASONAL QUADRIVALENT HIGH DOSE AGE 65+ Carl Encarnacion MD Work Phone: Start: 06-26-2022 PFIZER-[employer]IONTT[employer]ONA [employer] COVI D-19 BIVALENT BOOSTER VACCINE, AGE 12+ YR Carl Encarnacion MD Work Phone: Extraction of cataract DR KOBY WALLER MD Plan of Treatment Date Care Activity Detail Author Start: 08-18-2026 [facility] Start: 07-26-2026 [facility] Start: 07-14-2026 [facility] Start: 07-07-2026 Diabetes Screening Diabetes [facility] Start: 06-10-2026 Diabetes Screening [facility] Start: 06-02-2026 Diabetes Screening [facility] Start: 04-14-2026 Diabetes Screening [facility] Start: 04-12-2026 DIABETES SCREEN DIABETES SCREEN [facility] Start: 03-22-2026 DIABETES SCREEN DIABETES SCREEN [facility] Start: 01-15-2026 DIABETES SCREEN DIABETES SCREEN [facility] Start: 12-12-2024 DIABETES SCREEN DIABETES SCREEN [facility] Start: 08-12-2024 DIABETES SCREEN DIABETES SCREEN [facility] Start: 04-09-2024 Covid-19 Vaccine () Covid-19 Vaccine () [facility] Start: 04-09-2024 Covid-19 Vaccine ( season) Covid-19 Vaccine () [facility] Start: 04-09-2024 Influenza vaccination Influenza Vacc ine (#1) [facility] Start: 02-17-2024 End: 02-17-2024 Patient encounter procedure 02/17/2024 10:20 AM EDT Office Visit [facility] [place] [address] [place], [place] [id number] Kristen Eugene PA-C [address] [place], [place] [id number] Medicare wellness [facility] [place] Comment on above: Medicare wellness Start: 01-13-2024 End: 04-13-2024 Bacteria identified in Urine by Culture URINE CULTURE Microbiology Routine Recurrent UTI (urinary tract infection) Expected: 01/13/2024, Expires: 04/13/2024 [facility] Work Phone: Comment on above: Expected: 01/13/2024 , Expires: 04/13/2024 Start: 12-23-2023 End: 03-23-2024 Bacteria identified in Urine by Culture URINE CULTURE Microbiology Routine Recurrent UTI (urinary tract infection) Expected: 12/23/2023, Expires: 03/23/2024 [facility] Work Phone: Comment on above: Expected: 12/23/2023 , Expires: 03/23/2024 Start: 12-13-2023 End: 03-13-2024 Bacteria identified in Urine by Culture URINE CULTURE Microbiology Routine Recurrent UTI (urinary tract infection) Expected: 12/13/2023, Expires: 03/13/2024 [facility] Work Phone: Comment on above: Expected: 12/13/2023 , Expires: 03/13/2024 Start: 12-13-2023 End: 03-13-2024 URINALYSIS, REFLEX MICROSCOPIC URINALYSIS, REFLEX MICROSCOPIC Lab Routine Recurrent UTI (urinary tract infection) Expected: 12/13/2023, Expires: 03/13/2024 [facility] Comment on above: Expected: 12/13/2023 , Expires: 03/13/2024 Start: 11-26-2023 Patient discharge [facility] Start: 11-24-2023 Referral to service [facility] Start: 11-23-2023 Bacteria identified in Urine by Culture [facility] Start: 11-23-2023 Following clinical p athway protocol [facility] Start: 11-23-2023 Ambulation without limitation [facility] Start: 11-23-2023 Assessment of risk o f venous thromboembolism [facility] Start: 11-23-2023 Insertion of cathete r into peripheral vein [facility] Start: 11-23-2023 Providing care accor ding to standard [facility] Start: 11-23-2023 Referral to occupati onal therapist [facility] Start: 11-23-2023 Referral to service [facility] Start: 11-23-2023 [facility] Start: 11-23-2023 Hospital admission, emergency, from emergency room, medical nature [facility] Start: 11-23-2023 Verification routine [facility] Start: 11-23-2023 Admission procedure [facility] Start: 11-23-2023 [facility] Start: 11-23-2023 [facility] Start: 08-09-2023 Advance Directive Discussion Advance Directive Discussion [facility] Start: 08-09-2023 Behavioral Health Screening Behavioral Health Screening [facility] Start: 08-09-2023 Depression Assessment Depression Ass essment [facility] Start: 07-14-2023 End: 10-13-2023 Basic metabolic 2000 panel - Serum or Plasma BASIC METABOLIC PNL Lab STAT Malignant neoplasm of right ovary (HCC) Expected: 07/14/2023, Expires: 10/13/2023 [facility] Work Phone: Comment on above: Expected: 07/14/2023 , Expires: 10/13/2023 Start: 07-12-2023 Covid-19 Vaccine () Covid-19 Vaccine () [facility] Start: 06-26-2023 Shingrix Vaccine (1 of 2) Hoff grix Vaccine (1 of 2) [facility] Comment on above: Postponed from 01/21 (Insurance Coverage) Start: 06-26-2023 SHINGRIX VACCINE (2 of 3) HOFF GRIX VACCINE (2 of 3) [facility] Comment on above: Postponed from 01/21 (Insurance Coverage) Start: 06-26-2023 Urine microalbumin profile [facility] Comment on above: Postponed from 03/17 (Insurance Coverage) Start: 06-18-2023 End: 09-17-2023 Basic metabolic 2000 panel - Serum or Plasma BASIC METABOLIC PNL Lab STAT 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 (HCC) Expected: 06/18/2023, Expires: 09/17/2023 [facility] Work Phone: Comment on above: Expected: 06/18/2023 , Expires: 09/17/2023 Start: 06-07-2023 End: 09-06-2023 PAULINE ISTAT BMP PAULINE ISTAT BMP Lab STAT 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 (HCC) Expected: 06/07/2023, Expires: 09/06/2023 [facility] Work Phone: Comment on above: Expected: 06/07/2023 , Expires: 09/06/2023 Start: 04-09-2023 Influenza vaccination [facility] Start: 01-25-2023 End: 03-27-2023 Bacteria identified in Urine by Culture URINE CULTURE Microbiology Routine Urinary frequency Expected: 01/25/2023, Expires: 03/27/2023 [facility] Work Phone: Comment on above: Expected: 01/25/2023 , Expires: 03/27/2023 Start: 10-24-2022 COVID-19 VACCINE (5 - Mixed Product series) COVID-19 VACCINE (5 - Mixed Product series) [facility] Start: 08-09-2022 ADVANCE DIRECTIVE DISCUSSION ADVANCE DIRECTIVE DISCUSSION [facility] Start: 08-09-2022 DEPRESSION ASSESSMENT DEPRESSION ASS ESSMENT [facility] Start: 04-09-2022 Influenza vaccination INFLUENZA (#1) [facility] Start: 12-10-2021 COVID-19 VACCINE (4 - Booster) COVID-19 VACCINE (4 - Booster) [facility] Start: 11-12-2021 End: 01-12-2022 Bacteria identified in Urine by Culture URINE CULTURE Microbiology Routine Frequent UTI Confusion Expected: 11/12/2021, Expires: 01/12/2022 [facility] Work Phone: Comment on above: Expected: 11/12/2021 , Expires: 01/12/2022 Start: 11-12-2021 End: 01-12-2022 Urinalysis complete panel - Urine URINALYSIS, WITH MICROSCOPIC Lab Routine Frequent UTI Confusion Expected: 11/12/2021, Expires: 01/12/2022 [facility] Work Phone: Comment on above: Expected: 11/12/2021 , Expires: 01/12/2022 Start: 10-07-2021 COVID-19 VACCINE (4 - Booster) COVID-19 VACCINE (4 - Booster) [facility] Start: 08-09-2021 ADVANCE DIRECTIVE DISCUSSION ADVANCE DIRECTIVE DISCUSSION [facility] Start: 08-09-2021 DEPRESSION ASSESSMENT DEPRESSION ASS ESSMENT [facility] Start: 2014 RSV Vaccine (1 - 1-d ose 75+ series) RSV Vaccine (1 - 1-dose 75+ series) [facility] Start: 01-22-2012 Shingrix Vaccine (1 of 2) Hoff grix Vaccine (1 of 2) [facility] Start: 01-22-2012 SHINGRIX VACCINE (2 of 3) HOFF GRIX VACCINE (2 of 3) [facility] Start: 10-22-2005 Screening for malign ant neoplasm of cervix Cervical Cancer Screening [facility] Start: 1999 RSV Vaccine (1 - 1-d ose 60+ series) RSV Vaccine (1 - 1-dose 60+ series) [facility] Start: 1958 Urine microalbumin profile [facility] Start: 1957 Anxiety Screening Anxiety Screening [facility] Start: 1957 Depression Screening Depression Scre ening [facility] End: 06-06-2024 Cancer Ag 125 [Units/volume] in Serum or Plasma CA 125 BLD Lab Routine 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 (HCC) Every 3 weeks for 30 Occurrences starting 06/07/2023 until 06/06/2024 [facility] Work Phone: Comment on above: Every 3 weeks for 30 Occurrences starting 06/07/2023 until 06/06/2024 End: 06-06-2024 CBC W Auto Differential panel - Blood CBC + DIFF Lab STAT 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 (HCC) Every 3 weeks for 30 Occurrences starting 06/07/2023 until 06/06/2024 [facility] Work Phone: Comment on above: Every 3 weeks for 30 Occurrences starting 06/07/2023 until 06/06/2024 End: 06-06-2024 Comprehensive metabolic 2000 panel - Serum or Plasma COMP METABOLIC PANEL Lab STAT 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 (HCC) Every 3 weeks for 30 Occurrences starting 06/07/2023 until 06/06/2024 [facility] Work Phone: Comment on above: Every 3 weeks for 30 Occurrences starting 06/07/2023 until 06/06/2024 End: 03-22-2024 Echocardiography ECHO Cardiology KARLENE Preop examination 1 Occurrences starting 03/22/2023 until 03/22/2024 [facility] Work Phone: Comment on above: 1 Occurrences starti ng 03/22/2023 until 03/22/2024 End: 06-06-2024 Magnesium [Mass/volume] in Serum or Plasma MAGNESIUM BLD Lab Routine 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 (HCC) Every 3 weeks for 30 Occurrences starting 06/07/2023 until 06/06/2024 [facility] Work Phone: Comment on above: Every 3 weeks for 30 Occurrences starting 06/07/2023 until 06/06/2024 OXIMETRY - NOCTURNAL OXIMETRY - NOCTURNAL Procedures Routine Hypoxia Ordered: 05/01/2022 [facility] Work Phone: Comment on above: Ordered: 05/01/2022 End: 05-31-2023 OXIMETRY WITH AMBULATION OXIMETRY WITH AMBULATION PFT Routine Hypoxia 1 Occurrences starting 05/01/2022 until 05/31/2023 [facility] Work Phone: Comment on above: 1 Occurrences starti ng 05/01/2022 until 05/31/2023 PAIN PANEL, UR QUANT PAIN PANEL, UR QUANT Lab Routine Osteoarthritis of multiple joints, unspecified osteoarthritis type Medication management Ordered: 12/12/2021 [facility] Work Phone: Comment on above: Ordered: 12/12/2021 PAIN PANEL, UR QUANT PAIN PANEL, UR QUANT Lab Routine Osteoarthritis of multiple joints, unspecified osteoarthritis type Medication management Ordered: 12/12/2021 [facility] Work Phone: Comment on above: Ordered: 12/12/2021 Patient Education ED Back Sprain/Strain W [facility] Work Phone: Patient referral [facility] Work Phone: PT PLAN OF CARE CERTIFICATION PT PLAN OF CARE CERTIFICATION Procedures Routine Sciatica, right side Falls, subsequent encounter Ordered: 02/02/2023 [facility] Comment on above: Ordered: 02/02/2023 End: 02-26-2024 Radex spine lumbosacral 2/3 views XR LUMBAR GENERAL 3V AP/LAT/L5-S1 Radiology Routine Sciatica, right side Fall, subsequent encounter 1 Occurrences starting 01/27/2023 until 02/26/2024 [facility] Work Phone: Comment on above: 1 Occurrences starti ng 01/27/2023 until 02/26/2024 Radex spine lumbosac ral 2/3 views XR LUMBAR GENERAL 3V AP/LAT/L5-S1 Radiology Routine Sciatica, right side Fall, subsequent encounter 01/27/2023 12:01 PM EDT [facility] Work Phone: End: 08-18-2023 Radiologic exam chest 2 views XR CHEST 2V FRONTAL/LAT Radiology STAT Acute cough Wheezing 1 Occurrences starting 07/19/2022 until 08/18/2023 [facility] Work Phone: Comment on above: 1 Occurrences starti ng 07/19/2022 until 08/18/2023 Radiologic exam ches t 2 views XR CHEST 2V FRONTAL/LAT Radiology Routine Ovarian mass Preop examination 03/22/2023 1:40 PM EDT [facility] Work Phone: SPECIMEN VALIDITY, URINE SPECIME N VALIDITY, URINE Lab Routine Osteoarthritis of multiple joints, unspecified osteoarthritis type Medication management Ordered: 12/12/2021 [facility] Work Phone: Comment on above: Ordered: 12/12/2021 TOX SCREEN ROUT UR TOX SCREEN RO UT UR Lab Routine Osteoarthritis of multiple joints, unspecified osteoarthritis type Medication management Ordered: 12/12/2021 [facility] Work Phone: Comment on above: Ordered: 12/12/2021 [facility] Immunizations Immunization Date Immunization Notes Care Provider [facility] 05-17-2023 COVID-19 vaccine, ag e 12+ yr, season ([employer]) Carl Encarnacion MD Work Phone: [facility] 05-17-2023 influenza (HD-IIV4) vaccine, age 65+ yr, high dose, quadrivalent, PF (FLUZONE HIGH-DOSE) Carl Encarnacion MD Work Phone: [facility] 05-17-2023 influenza virus vacc ine, unspecified formulation USMAN CHILDS MD [facility] 05-17-2023 SARS-CoV-2 (COVID-19 ) [id number] USMAN CHLIDS MD FACP [facility] Comment on above: Result Comment: 2023: [id number] 06-26-2022 COVID-19 booster vaccine, age 12+ yr, bivalent (PFI[employer]ER-[employer]ION[employer]CH) Carl Encarnacion MD Work Phone: [facility] 06-26-2022 influenza, high-dose , quadrivalent vaccine (FLUZONE HIGH DOSE QUADRIVALENT) Carl Encarnacion MD Work Phone: [facility] 06-26-2022 influenza virus vacc ine, unspecified formulation Annmarie Solanomonalisa ICHTHYOLOGY TEACHER.[facility] Work Phone: [facility] 08-12-2021 COVID-19 vaccine, ag e 12+ yr (PFIZER-BIONTECH - [facility]) Carl Encarnacion MD Work Phone: [facility] Work Phone: Comment on above: Result Comment: 2023: INDIVIDUALS OVER 80 YEARS OF AGE 1005-31-2021 influenza virus vacc ine, unspecified formulation USMAN CHILDS MD [facility] 05-31-2021 influenza, injectabl e, quadrivalent, preservative free [facility] 05-31-2021 influenza, seasonal, injectable [facility] 09-29-2020 COVID-19 vaccine, ag e 12+ yr (PFIZER-BIONTECH - [facility]) Carl Encarnacion MD Work Phone: [facility] Work Phone: Comment on above: Result Comment: 2023: TPV80 09-05-2020 Covid (Pfizer) [facility] Comment on above: Result Comment: 2023: TPV80 09-05-2020 COVID-19 vaccine, fu ll dose (MODERNA) Carl Encarnacion MD Work Phone: [facility] Work Phone: 06-15-2020 influenza virus vacc ine, unspecified formulation USMAN CHILDS MD [facility] 06-15-2020 influenza, injectabl e, quadrivalent, contains preservative Carl Encarnacion MD Work Phone: [facility] 05-08-2019 influenza virus vacc ine, unspecified formulation USMAN CHILDS MD [facility] 05-08-2019 influenza, high dose seasonal, preservative-free Carl Encarnacion MD Work Phone: [facility] 05-10-2018 influenza virus vacc ine, unspecified formulation USMAN CHILDS MD [facility] 05-10-2018 influenza, high dose seasonal, preservative-free Carl Encarnacion MD Work Phone: [facility] 05-17-2017 influenza virus vacc ine, unspecified formulation USMAN CHILDS MD FAC [facility] 05-17-2017 influenza, high dose seasonal, preservative-free Carl Encarnacion MD Work Phone: [facility] 02-26-2017 pneumococcal polysaccharide vaccine, 23 valent Carl Encarnacion MD Work Phone: [facility] 05-13-2016 influenza virus vacc ine, unspecified formulation USMAN CHILDS MD [facility] 05-13-2016 influenza, high dose seasonal, preservative-free Carl Encarnacion MD Work Phone: [facility] 02-27-2016 pneumococcal conjuga te vaccine, 13 valent Carl Encarnacion MD Work Phone: [facility] 07-16-2015 influenza virus vacc ine, unspecified formulation USMAN CHILDS MD [facility] 07-16-2015 influenza, injectabl e, quadrivalent, contains preservative Carl Encarnacion MD Work Phone: [facility] Work Phone: 05-11-2014 influenza virus vacc ine, unspecified formulation USMAN CHILDS MD [facility] 05-11-2014 influenza, seasonal, injectable Carl Encarnacion MD Work Phone: [facility] Work Phone: 07-17-2013 influenza virus vacc ine, unspecified formulation Carl Encarnacion MD Work Phone: [facility] Work Phone: 07-09-2012 influenza virus vacc ine, unspecified formulation Carl Encarnacion MD Work Phone: [facility] Work Phone: 11-27-2011 zoster vaccine, live Carl Encarnacion MD Work Phone: [facility] 06-24-2010 influenza virus vacc ine, unspecified formulation Carl Encarnacion MD Work Phone: [facility] 07-13-2006 influenza virus vacc ine, unspecified formulation Carl Encarnacion MD Work Phone: [facility] Work Phone: 07-13-2006 pneumococcal polysaccharide vaccine, 23 valent Carl Encarnacion MD Work Phone: [facility] Work Phone: Payers Date Payer Category Payer Private Health Insurance [id number] 2024 Self-pay [id number] 2024 Medicaid [id number] 2023 Medicare [id number] 2021 Unknown ANTHEM BLUE [facility] S AND BLUE [facility] ANTHEM MEDIBLUE ACCESS [id number] 2021-Present [phone] [address] [place] [address] PPO [id number]. [id number] 2021 Unknown [id number]. 1.13.159.2. [id number] 2021 Medicare [id number] 2015 Unknown HOSPITAL/MEDICAL GENERIC MEDICAL GENERIC [id number] 2015-Present [phone] [place] [address] Indemnity [id number]. [id number] 2004 Medicare MEDICARE MEDICAR E A AND B [id number] 2004-Present [phone] [address] [address] [place] [address] Medicare [id number]. 7.3.157069.315 1939 Unknown [id number] 2.16.840.1.924187.3.579.2. 627 1939 Unknown [id number] 2.16.840.1.021544.3.579.2. 627 1939 Unknown [id number] 2.16840.1.154663.3.579.2. 627 1939 Unknown [id number] 2.16840.1.473022.3.579.2. 627 1939 Unknown [id number] 2.16840.1.060860.3.579.2. 627 1939 Unknown [id number] 2.16840.1.419741.3.579.2. 627 1939 Unknown [id number] 2.16.840.1.639293.3.579.2. 627 Unknown [facility] [id number] Unknown COMMERCIAL OTHER [id number] Unknown [id number] 2.16.840.1.647821.3.579.2. 462 Unknown [id number] 2.16840.1.878134.3.579.2. 462 Unknown [id number] 2.16.840.1.833089.3.579.2. 462 Unknown [id number] 2.16.840.1.472214.3.579.2. 462 Unknown [id number] 2.16.840.1.524142.3.579.2. 462 Unknown [id number] 2.16.840.1.521319.3.579.2. 462 Unknown [id number] 2.16.840.1.207914.3.579.2. 462 Unknown [id number] 2.16.840.1.042504.3.579.2. 462 Unknown [id number] 2.16.840.1.416519.3.579.2. 462 Unknown [id number] 2.840.1.690844.3.579.2. 462 Unknown [id number] 2.16840.1.863011.3.579.2. 462 Unknown [id number] 2.840.1.468552.3.579.2. 462 Unknown [id number] 2.840.1.385385.3.579.2. 462 Unknown [id number] 2.840.1.007872.3.579.2. 462 Unknown [id number] 2.840.1.207842.3.579.2. 462 Unknown [id number] 2.840.1.836782.3.579.2. 462 Unknown [id number] 2.16840.1.787922.3.579.2. 462 Unknown [id number] 2.16840.1.088085.3.579.2. 462 Unknown [id number] 2.16840.1.663839.3.579.2. 462 Unknown [id number] 2.16840.1.554403.3.579.2. 462 Unknown [id number] 2.16840.1.658452.3.579.2. 462 Unknown [id number] 2.16840.1.608864.3.579.2. 462 Unknown [id number] 2.16840.1.488553.3.579.2. 462 Unknown [id number] 2.16.840.1.152811.3.579.2. 462 Unknown [id number] 2.16840.1.812252.3.579.2. 462 Unknown [id number] 2.16.840.1.391727.3.579.2. 462 Unknown [id number] 2.16840.1.561130.3.579.2. 462 Unknown [id number] 2.16840.1.686446.3.579.2. 462 Unknown [id number] 2.840.1.455793.3.579.2. 462 Unknown [id number] 2.840.1.666681.3.579.2. 462 Unknown [id number] 2.840.1.461267.3.579.2. 462 Unknown [id number] 2.840.1.601556.3.579.2. 462 Unknown [id number] 2.840.1.103433.3.579.2. 462 Unknown [id number] 2.840.1.803062.3.579.2. 462 Unknown [id number] 2.840.1.643145.3.579.2. 462 Unknown [id number] 2.840.1.140347.3.579.2. 462 Unknown [id number] 2.840.1.099044.3.579.2. 462 Unknown [id number] 2.840.1.127921.3.579.2. 462 Unknown [id number] 2.16840.1.974797.3.579.2. 462 Unknown [id number] 2.840.1.293447.3.579.2. 462 Unknown [id number] 2.840.1.622161.3.579.2. 462 Unknown [id number] 2.840.1.850068.3.579.2. 462 Social History Date Type Detail Facility Start: 11-23-2011 End: 09-16-2023 Tobacco smoking status NHIS Never smoked tobacco [facility] Start: 06-17-2021 End: 07-19-2022 Alcohol intake Current non-drinker of alcohol (finding) [facility] Start: 1940 Sex Assigned At Not on file C [facility] Start: 12-02-2021 End: 06-26-2022 Exposure to SARS-CoV-2 (event) Not sure [facility] Start: 11-23-2011 End: 06-02-2023 Tobacco use and exposure Smokeless tobacco non-user [facility] Start: 01-12-2023 End: 11-23-2023 Tobacco smoking status NHIS Unknown if ever smoked [facility] Start: 1940 Sex Assigned At Female W [facility] Start: 07-15-2020 End: 03-10-2023 History of Social function [facility] Work Phone: Start: 07-15-2020 End: 03-10-2023 Tobacco use panel [facility] Work Phone: Adult Depression Screening Assessment 0 [facility] Work Phone: Start: 06-02-2023 End: 03-14-2024 Tobacco smoking status NHIS Ex-smoker [facility] History of tobacco use Current smoker [facility] History of tobacco use Cigarette Smoker C [facility] Start: 06-04-2023 Gender identity Identifies as female gender (finding) [facility] Start: 06-04-2023 Sexual orientation Heterosexual (fin ding) [facility] Start: 11-09-2024 End: 11-24-2024 Sex Female (finding) [facility] Goals Date Patient Goal Desired Activity /State Functional Status Date Assessment Result Facility 02-14-2024 Functional Status Room check performed [facility] 02-14-2024 Functional Status Refused [facility] 02-14-2024 Functional Status [facility] 02-14-2024 Functional Status [facility] 02-13-2024 Functional Status [facility] 02-13-2024 Functional Status Skin Care Prev entative Intervention(s) heel(s)s elevated [facility] 02-13-2024 Functional Status Rosa Maria [facility] 02-13-2024 Functional Status Rosa [facility] 02-12-2024 Functional Status Lunch Percent 50 [facility] 02-12-2024 Functional Status Rosa Maria [facility] 02-11-2024 Functional Status Rosa Maria [facility] 02-11-2024 Functional Status Min A Rosa Maria [facility] 02-11-2024 Functional Status bilateral knee high removed/off [facility] 02-11-2024 Functional Status Reason SCD Rem nuvia/Off Patient refused [facility] 02-10-2024 Functional Status Rosa Maria [facility] 02-10-2024 Functional Status Rosa Maria [facility] 02-10-2024 Functional Status Rosa [facility] 02-09-2024 Functional Status Rosa Maria [facility] 02-09-2024 Functional Status Pt. normally d oes sponge bathing. [facility] 02-09-2024 Functional Status NPO Status Maintained A [facility] 02-08-2024 Functional Status Rosa Maria [facility] 02-07-2024 Functional Status Rosa Maria [facility] 02-07-2024 Functional Status Rosa Maria [facility] 02-07-2024 Functional Status Transparent silicone dr veronica [facility] 02-07-2024 Functional Status Assistive Equi pment elevated on pillows [facility] 02-07-2024 Functional Status Rosa Maria [facility] 02-06-2024 Functional Status Rosa Maria [facility] 02-06-2024 Functional Status Rosa Maria [facility] 02-06-2024 Functional Status [facility] 02-05-2024 Functional Status None Rosa Maria [facility] 02-05-2024 Functional Status Awake [facility] 02-04-2024 Functional Status Rosa Maria Brooke [facility] 02-04-2024 Functional Status Identified as high risk, Fall ID band on, Door open, Non-Slip footwear, Room check performed [facility] 02-04-2024 Functional Status Rosa Maria Brooke [facility] 02-04-2024 Functional Status Rosa Maria Ho [facility] 02-04-2024 Functional Status 25 Rosa Maria Brooke [facility] 02-04-2024 Functional Status Rosa Maria gould [facility] 02-03-2024 Functional Status Up to Chair Re rohini up in chair [facility] 02-03-2024 Functional Status Pt. normally d oes sponge bathing. [facility] 02-03-2024 Functional Status Rosa Maria Boroke [facility] 02-01-2024 Functional Status Single level home [facility] 02-01-2024 Functional Status Sensory Deficits None A [facility] 02-01-2024 Functional Status Max A Rosa Maria Brooke [facility] 02-01-2024 Functional Status Door open, Non-Slip footwear, Room check performed [facility] 02-01-2024 Functional Status Rosa Maria Brooke [facility] 02-01-2024 Functional Status Rosa Maria Brooke [facility] 01-31-2024 Functional Status Repositioned right side [facility] 01-31-2024 Functional Status Rosa Maria Brooke [facility] 01-31-2024 Functional Status Rosa Maria Brooke [facility] 01-31-2024 Functional Status Rosa Maria Brooke [facility] 01-31-2024 Functional Status Rosa Maria Brooke [facility] 01-31-2024 Functional Status Rosa Maria Ho [facility] 01-31-2024 Functional Status Rosa Maria Ho [facility] 01-30-2024 Functional Status Foam dressing [facility] Functional Status Rosa Maria Ho [facility] 01-29-2024 Functional Status Dinner Percent 25 [facility] 01-29-2024 Functional Status Max A Rosa Maria Brooke [facility] 01-29-2024 Functional Status Rosa Maria Brooke [facility] 01-29-2024 Functional Status Rosa Maria Ho [facility] 01-28-2024 Functional Status [facility] Functional Status Rosa Maria Ho luis fernando [facility] [place] [facility] 01-28-2024 Functional Status Rosa Maria Ho luis fernando [facility] [place] [facility] 01-27-2024 Functional Status [facility] 01-27-[facility]24 Functional Status Mod A [facility] 01-27-[facility] Functional Status [facility] 01-27-2024 Functional Status Min A 9 [facility] 01-26-2024 Functional Status Independent Rosa [facility] 01-26-2024 Functional Status Rosa [facility] 01-25-2024 Functional Status Rosa Maria Ho luis fernando [facility] 01-25-2024 Functional Status [facility] 01-24-2024 Functional Status Single level home [facility] 01-23-2024 Functional Status [facility] 01-23-2024 Functional Status [facility] 01-22-2024 Functional Status [facility] 01-22-2024 Functional Status Sensory Deficits None A [facility] 12-11-2023 Functional Status Repositions self [facility] 12-11-2023 Functional Status Room check performed [facility] 12-11-2023 Functional Status Rosa Maria Ho [facility] 12-11-2023 Functional Status [facility] 12-10-2023 Functional Status Activity Statu s ADL Sleeping quietly with easy respirations [facility] 12-10-2023 Functional Status bilateral knee high removed/off [facility] 12-10-2023 Functional Status [facility] 12-10-2023 Functional Status [facility] 12-10-2023 Functional Status Mod I Rosa Maria Ho luis fernando [facility] [place] 12-10-2023 Functional Status Rosa Maria Ho luis fernando [facility] [place] [facility] 12-10-2023 Functional Status Rosa Maria Ho luis fernando [facility] [place] [facility] 12-09-2023 Functional Status Rosa Maria Ho luis fernando [facility] [place] [facility] 12-09-2023 Functional Status Supervised Rosa Maria Ho luis fernando [facility] [place] 12-09-2023 Functional Status Rosa Maria Ho luis fernando [facility] [place] [facility] 12-09-2023 Functional Status Rosa Maria Ho luis fernando [facility] [place] [facility] 12-08-2023 Functional Status Rosa Maria Ho luis fernando [facility] [place] [facility] 12-08-2023 Functional Status Rosa Maria Ho luis fernando [facility] [place] 12-07-2023 Functional Status [facility] 12-07-2023 Functional Status Rosa Maria Ho luis fernando [facility] [place] 12-07-2023 Functional Status Linen Change Done [facility] 12-07-2023 Functional Status [facility] 12-06-2023 Functional Status [facility] 12-06-2023 [facility] Status [facility] 12-05-2023 Functional Status Skin Care Prev entative Intervention(s) heel(s)s elevated [facility] 12-05-2023 Functional Status Rosa Mariajesus gould [facility] 12-05-2023 Functional Status [facility] 12-05-2023 Functional Status [facility] 12-04-2023 Functional Status Lunch Percent 50 [facility] 12-04-2023 Functional Status Rosa Maria Ho luis fernando [facility] 12-04-2023 Functional Status Rosa Mariajesus gould [facility] 12-03-2023 Functional Status Independent 10 [facility] 12-03-2023 Functional Status Rosa Mariajesus gould [facility] 12-02-2023 Functional Status Up to Chair Returned to bed [facility] 12-02-2023 Functional Status Rosa Maria Ho [facility] 12-02-2023 Functional Status Dinner Percent 5 [facility] 12-02-2023 Functional Status Rosa Maria Brooke [facility] 12-01-2023 Functional Status Rosa Maria Brooke [facility] 12-01-2023 Functional Status Rosa Maria Brooke [facility] 11-30-2023 Functional Status Rosa Maria Brooke [facility] 11-30-2023 Functional Status Rosa Maria Brooke [facility] 11-29-2023 Functional Status Mod A Rosa Maria Brooke [facility] 11-28-2023 Functional Status Done Rosa Maria Brooke [facility] 11-27-2023 Functional Status Single level home [facility] 11-27-2023 Functional Status Rosa Maria Brooke [facility] 11-26-2023 Functional Status Sensory Deficits None A [facility] 11-26-[address] [facility] Work Phone: Mental Status Date Assessment Result Facility 02-14-2024 Mental Status Orientation Asse ssment Identifies self, Not oriented to time, Oriented to person 1 [facility] 02-14-2024 Mental Status Oriented x 4 [facility] 02-13-2024 Mental Status [facility] 02-13-2024 Mental Status [facility] 02-04-2024 Mental Status Not oriented to place, Not oriented to time, Not oriented to situation, Forgetful, Follows simple commands [facility] 02-04-2024 Mental Status [facility] 02-03-2024 Mental Status [facility] 02-01-2024 Mental Status Orientation Asse ssment Oriented x 4 [facility] 02-01-2024 Mental Status Not oriented to person, Not oriented to time [facility] 01-31-2024 Mental Status [facility] 01-31-2024 Mental Status [facility] 01-31-2024 [facility] Status Oriented x 4 [facility] 12-10-2023 Mental Status [facility] 12-10-2023 [facility] 12-10-2023 Mental Status [facility] 11-26-2023 Cognitive function Voice/Name [facility] Work Phone: 11-23-2023 Cognitive function Level Of Cons ciousness Awake;Alert;Appropriate;Follow s Commands [facility] Work Phone: Clinical Notes 06-18-2021 to 02-15-2024 [...] identified. 02/15/2024 by Carl Encarnacion MD [facility] 02-15-2024 Miscellaneous Notes The following approved [...] 8:15 AM documented in this encounter [facility] 02-15-2024 Telephone encounter Note Prescription Refill [...] Puckett LPN February 15, 2024 11:25 AM [facility] 02-15-2024 Telephone encounter Note Prescription Refill [...] Stephanie Estrada February 15, 2024 8:15 AM T [facility] 02-14-2024 Hospital Discharg e instructions Patient [...] Follow these instructions at home: Medicines Take rkjz-ght-mlryesz and prescription medicines only as told by [...] and water are not available, use hand financial administration officer. You should wash your hands: ?After using [...] health care provider. Practice good oral hygiene. [employer] your teeth two times a day, and [...] 05/09/2007 Document Revised: 12/15/2019 Document Reviewed: 12/15/2019 [employer] Patient Education 2019 [employer]. Follow Up Care 02/04/2024 10:08:29 With:LINDA ANNE BA, MD, Infectious Disease, Infectious Disease Group Address: [facility] [address] [place] [address]- [phone] When:Within 3 Week(s) Comments:Schedule appointment as soon as possible With:Alyson Blank for skilled care, report to [phone] Address:Unknown When:1-2 days With:ESTER BEJARANO Address: [address] [address]- Business (1) When:1-2 days [facility] 02-14-2024 Note Discharge Instructions Thank you for allowing [facility] to assist you with your healthcare needs. The following is important discharge information regarding your hospital visit. Your Care Team ESTER BEJARANO MSN, YARD TRUCK DRIVER What to do next Instructions From Your [...] Wednesday and send results to fax number [phone] Anne Please call Dr. Anne's office for a follow-up appointment in 2-4 weeks, Phone number [phone]. Scheduled Follow-Up Appointments Appointment Type When Where Contact Information StatusEcho - Echocardiogram Adult 08/21/2024 11:00 AM [facility] Radiology [phone] Confirmed CV OV 09/21/2024 01:15 PM EST [facility] Confirmed Follow Up Appointments Follow Up with LINDA ANNE BA, MD, Infectious Disease, Infectious Disease Group When:In 3 weeks Where:[facility] [address] [place] [address] [phone] Additional Information: Schedule appointment as soon as possible Follow Up with Alyson Blank for skilled care, report to [phone] When:Within 1-2 days Follow Up with ESTER BEJARANO When:Within 1-2 days Where:[address] [address]- Business (1) The Following Activity and Diet [...] Follow these instructions at home: Medicines Take wzfc-rti-tjxizgh and prescription medicines only as told by [...] and water are not available, use hand financial administration officer. You should wash your hands: ? After [...] health care provider. Practice good oral hygiene. [employer] your teeth two times a day, and [...] 12/15/2019 Document Reviewed: 12/15/2019 Else[employer] Patient Education 2019 Helium. Additional Information VACCINATE! IT SAVES LIVES! Members of the community who have not yet received the COVID-19 vaccine and would like to receive it can visit one of [facility] vaccine clinics. There are many vaccine clinic locations within the [facility]. For locations and available times, please visit [email or web address] It is important to note that some COVID mobile vaccine clinics are held outdoors and may be canceled in rainy or stormy conditions. To learn more about pediatric vaccinations (ages 5-11), we invite you to visit the [facility] webpage. [email or web address]/ [email or web address]-[email or web address]-Fr [email or web address].html To learn more about the COVID-19 vaccine, we invite you to visit the CDC website for a list of frequently asked questions.https://www.cdc.gov/c oronavirus/2019-ncov/vaccines/f aq.html [employer] Patient Portal Access Instructions: Stay connected with your healthcare team and access your personal medical information anytime with the [facility] Patient Portal. Please follow the directions below to create your [facility]ker account: 1.Access the email account you provided upon registration to the hospital/physician office.2.Look for an invitation email from [facility].3.Open the email and access the invitation link: Accept Invitation to [facility].4.Fill in the required martinez to create your account. To access your account, visit registracija [email or web address]. Click the blue button labeled "Access Patient [...] you will allow to register on the [facility] Patient Portal for access to your information. You can also access the [facility] on the [facility] Anywhere guille. Simply click on "Patient Portal" and then log into your account. If you would like to receive a full copy of your medical records, please contact the [facility] Medical Records Department by calling [phone], Wednesday through Wednesday between 8 a.m. and [...] Call your local pharmacy or go to [email or web address] to find one close to you.3.Make use of household items: Use cat litter or old coffee grounds to dispose medications if other options are not available. Mix your drugs with these household products, seal them in an airtight container and throw it into the garbage. Call [facility]: [phone] to be sure your drugs can be [...] aware that I should contact my doctor. Patient/Urgent Care Physician Signature: Date/Time: Relationship to Patient: Witness Name/Signature: Date/Time: [facility] 02-14-2024 Note Discharge Instructions Thank you for allowing [facility] to assist you with your healthcare needs. The following is important discharge information regarding your hospital visit. Your Care Team ESTER BEJARANO, YARD TRUCK DRIVER What to do next Instructions From Your [...] Wednesday and send results to fax number [phone] Anne Please call Dr. Anne's office for a follow-up appointment in 2-4 weeks, Phone number [phone]. Scheduled Follow-Up Appointments Appointment Type When Where Contact Information StatusEcho - Echocardiogram Adult 08/21/2024 11:00 AM [facility] Radiology [phone] Confirmed CV OV 09/21/2024 01:15 PM [facility] Conf[facility] Follow Up Appointments Follow Up with LINDA ANNE BA, MD, Infectious Disease, Infectious Disease Group When:In 3 weeks Where:[facility] [address] [place] [address] [phone] Additional Information: Schedule appointment as soon as possible Follow Up with [facility] skilled care, report to [phone] When:Within 1-2 days Follow Up with ESTER BEJARANO When:Within 1-2 days Where:[address] [address]- Business (1) The Following Activity and Diet [...] Follow these instructions at home: Medicines Take kruv-vgj-ncvaqkj and prescription medicines only as told by [...] and water are not available, use hand financial administration officer. You should wash your hands: ? After [...] health care provider. Practice good oral hygiene. [employer] your teeth two times a day, and [...] 05/09/2007 Document Revised: 12/15/2019 Document Reviewed: 12/15/2019 [employer] Patient Education 2020 [employer] Additional Information VACCINATE! IT SAVES LIVES! Members of the community who have not yet received the COVID-19 vaccine and would like to receive it can visit one of [facility] vaccine clinics. There are many vaccine clinic locations within the [facility]. For locations and available times, please visit https://gettheshot.coronavirus. [place].gov/. It is important to note that some COVID mobile vaccine clinics are held outdoors and may be canceled in rainy or stormy conditions. To learn more about pediatric vaccinations (ages 5-11), we invite you to visit the [facility] webpage. https://www.[facility].org/ pages/7635-Tvvto-Eyukqdmcjdt-Fr epbwksfw-Cjzlf-Fjovkjuxm.html To learn more about the COVID-19 vaccine, we invite you to visit the CDC website for a list of frequently asked questions.https://www.cdc.gov/c oronavirus/2019-ncov/vaccines/f aq.html [facility] Patient Portal Access Instructions: Stay connected with your healthcare team and access your personal medical information anytime with the [facility] [employer] [facility] Patient Portal. Please follow the directions below to create your [facility] [employer] account: 1.Access the email account you provided upon registration to the hospital/physician office.2.Look for an invitation email from [facility].3.Open the email and access the invitation link: Accept Invitation to [facility].4.Fill in the required martinez to create your account. To access your account, visit registracija [email or web address]. Click the blue button labeled "Access Patient [...] you will allow to register on the [facility] [employer] Patient Portal for access to your information. You can also access the [facility] Patient Portal on the [employer] Anywhere guille. Simply click on "Patient Portal" and then log into your account. If you would like to receive a full copy of your medical records, please contact the [facility] Medical Records Department by calling [phone], Wednesday through Wednesday between 8 a.m. and [...] Call your local pharmacy or go to [email or web address] to find one close to you.3.Make use of household items: Use cat litter or old coffee grounds to dispose medications if other options are not available. Mix your drugs with these household products, seal them in an airtight container and throw it into the garbage. Call [facility]: [phone] to be sure your drugs can be [...] and explained to me and IFELIX RACHEL S understand my current condition and have read and understand these discharge instructions. I have received a written copy of the plan/instructions. If I have questions, I am aware that I should contact my doctor. Patient/Urgent Care Physician Signature: Date/Time: Relationship to Patient: Witness Name/Signature: Date/Time: [facility] 02-14-2024 Note Discharge Instructions Thank you for allowing [facility] to assist you with your healthcare needs. The following is important discharge information regarding your hospital visit. Your Care Team ESTER BEJARANO MSN, YARD TRUCK DRIVER What to do next Instructions From Your [...] Wednesday and send results to fax number [phone] Anne Please call Dr. Anne's office for a follow-up appointment in 2-4 weeks, Phone number [phone]. Scheduled Follow-Up Appointments Appointment Type When Where Contact Information StatusEcho - Echocardiogram Adult 08/21/2024 11:00 AM [facility] Radiology [phone] Confirmed CV OV 09/21/2024 01:15 PM [facility] Heart & Vascular [facility] Confirmed Follow Up Appointments Follow Up with LINDA ANNE BA, MD, Infectious Disease, Infectious Disease Group When:In 3 weeks Where:[facility] [address] [place] [address] [phone] Additional Information: Schedule appointment as soon as possible Follow Up with [facility] skilled care, report to [phone] When:Within 1-2 days Follow Up with ESTER BEJARANO When:Within 1-2 days Where:[facility] [address] [place] [address]- Business (1) The Following Activity and Diet [...] Follow these instructions at home: Medicines Take cwdl-kyz-vucxwhl and prescription medicines only as told by [...] and water are not available, use hand financial administration officer. You should wash your hands: ? After [...] health care provider. Practice good oral hygiene. [employer] your teeth two times a day, and [...] 12/15/2019 Document Reviewed: 12/15/2019 Elsevier Patient Education 2019 [employer] Additional Information VACCINATE! IT SAVES LIVES! Members of the community who have not yet received the COVID-19 vaccine and would like to receive it can visit one of [facility] vaccine clinics. There are many vaccine clinic locations within the [facility]. For locations and available times, please visit https://gettheshot.[email or web address]. [place].gov/. It is important to note that some COVID mobile vaccine clinics are held outdoors and may be canceled in rainy or stormy conditions. To learn more about pediatric vaccinations (ages 5-11), we invite you to visit the [employer] webpage. https://www.Slateds.org/ pages/1678-Exlca-Jnnhefkqzxu-Fr xvcpcpeh-Edbcz-Srlrdjjme.html To learn more about the COVID-19 vaccine, we invite you to visit the CDC website for a list of frequently asked questions.https://www.cdc.gov/c oronavirus/2019-ncov/vaccines/f aq.html [facility] Patient Portal Access Instructions: Stay connected with your healthcare team and access your personal medical information anytime with the [facility] Patient Portal. Please follow the directions below to create your [facility] account: 1.Access the email account you provided upon registration to the hospital/physician office.2.Look for an invitation email from [facility].3.Open the email and access the invitation link: Accept Invitation to [facility].4.Fill in the required martinez to create your account. To access your account, visit registracija [email or web address] InternationalOneChart. Click the blue button labeled "Access Patient [...] you will allow to register on the [facility] Patient Portal for access to your information. You can also access the [facility] Patient Portal on the [facility] Anywhere guille. Simply click on "Patient Portal" and then log into your account. If you would like to receive a full copy of your medical records, please contact the [facility] Medical Records Department by calling [phone], Wednesday through Wednesday between 8 a.m. and [...] Call your local pharmacy or go to [email or web address] to find one close to you.3.Make use of household items: Use cat litter or old coffee grounds to dispose medications if other options are not available. Mix your drugs with these household products, seal them in an airtight container and throw it into the garbage. Call [facility]: [phone] to be sure your drugs can be [...] aware that I should contact my doctor. Patient/Urgent Care Physician Signature: Date/Time: Relationship to Patient: Witness Name/Signature: Date/Time: [facility] 02-13-2024 Note Date of Service 02/13/2024 Subjective [...] Wednesday and send results to fax number [phone] Anne Please call Dr. Anne's office for a follow-up appointment in 2-4 weeks, Phone number [phone]. PICC line placed 02/11/2024. Functioning well. Regards to the patient's retention: Appears to have some symptoms of constipation, which is now improved. Allen catheter removed Resume home medications as deemed appropriate. Point of contact: Patient's daughter Stefano: [phone] Above plan of care was discussed with the patient at bedside, all questions answered appropriately. This is a note transcribed by me, the attending physician on service using the 'Outbox' dictation software. Please excuse any grammatical errors, repetitions/duplications if any are present in the entirety of this note. Thank you. 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 Nuha Curtis MD Bridge Saw Operator Messenger guille or Pager [phone] Problem List/Past Medical History Ongoing Acquired hypothyroidism [...] CANDIDA CURTIS MD on 02/05/2024 01:36 PM [facility] 02-13-2024 Cardiology Progress note Date of Service [...] ALIA MCCORMACK MD on 02/07/2024 05:47 PM [facility] 02-12-2024 Note Date of Service 02/12/2024 Subjective [...] Wednesday and send results to fax number [phone] Anne Please call Dr. Anne's office for a follow-up appointment in 2-4 weeks, Phone number [phone]. PICC line placed 02/11/2024. Functioning well. Regards to the patient's retention: Appears to have some symptoms of constipation, which is now improved. Allen catheter removed Resume home medications as deemed appropriate. Point of contact: Patient's daughter Stefano: [phone] Above plan of care was discussed with the patient at bedside, all questions answered appropriately. This is a note transcribed by me, the attending physician on service using the 'Outbox' dictation software. Please excuse any grammatical errors, repetitions/duplications if any are present in the entirety of this note. Thank you. Anticipated Date of Discharge Await pre-CERT: Pre-CERT is obtained, patient can be discharged. Digitally Signed by DRE PHIPPS MD on 02/12/2024 01:17 PM [facility] 02-12-2024 Cardiology Progress note Date of Service [...] Oral Intake 120.00 Output Urinary Catheter Output: 2000. Stool Count 0.00 Emesis Count 0.00 Total [...] ALIA MCCORMACK MD on 02/09/2024 09:54 PM [facility] 02-11-2024 Procedure note Vascular Access Team Post Procedure Note Procedure: Peripherally Inserted Central Catheter (PICC) Indication: Group Home Antibiotics Details: Consult for PICC Placement received. [...] Length: 0cm Arm Circ: 32cm Lot #: [id number] Complications: None Inserted by: Reno Tapia RN Plan: Chest x-ray complete and confirmed PICC placement in SVC. May use PICC now per protocol. Digitally Signed by MICH Tapia on 02/11/2024 05:39 PM [facility] 02-11-2024 Note ORIGINAL EXAMINATION: ONE XRAY VIEW [...] Date: 02/11/2024 5:26:58 PM Ordering Provider: DRE [facility] 02-11-2024 Note Date of Service 02/11/2024 Subjective [...] Wednesday and send results to fax number [phone] Anne Please call Dr. Anne's office for a follow-up appointment in 2-4 weeks, Phone number [phone]. Awaiting PICC line placement. Regards to the patient's retention: Appears to have some symptoms of constipation, which is now improved. Will perform voiding trial today. Resume home medications as deemed appropriate. Point of contact: Patient's daughter Stefano: [phone] Above plan of care was discussed with the patient at bedside, all questions answered appropriately. This is a note transcribed by me, the attending physician on service using the 'Outbox' dictation software. Please excuse any grammatical errors, repetitions/duplications if any are present in the entirety of this note. Thank you. Anticipated Date of Discharge Patient can be discharged once PICC line is placed for IV antibiotics and when pre-CERT is obtained. Digitally Signed by DRE PHIPPS MD on 02/11/2024 11:42 AM [facility] 02-10-2024 Note Patient's cervical spine is contracted and follow commands poorly. Procedure can not be done safely as ordered. Consider CT imaging for valve evaluation Digitally Signed by PIO DONAHUE MD on 02/09/2024 11:45 AM [facility] 02-09-2024 Infectious diseas e Progress note Date [...] in overall coloring, BLE mild rash/dry skin BREAKER UP, diffuse ecchymosis INCISIONS/DRESSINGS: None EXTREMITIES: +1 BLE/pedal [...] 2/2 -F Enterococcus faecalis 02/02 Blood Cultures 1/1 -F Enterococcus faecalis 02/03 Blood Cultures 09/10 [...] Lima Vital RN on 02/09/2024 10:08 AM [facility] 02-09-2024 Note . MICRO - Microbiology PROCEDURE: [...] Locations *1: This test was performed at: [facility], [address] [place] [address], [facility] , [facility] ([place]) 02-09-2024 Note . MICRO - Microbiology PROCEDURE: [...] Locations *1: This test was performed at: [facility], [address] [place] [address], [address]- , [facility] ([place]) 02-09-2024 Cardiology Progress note Date of Service [...] Oral Intake 120.00 Output Urinary Catheter Output: 1999. Stool Count 0.00 Emesis Count 0.00 Total [...] ALIA MCCORMACK MD on 02/09/2024 09:54 PM [facility] 02-09-2024 Note Exam Date Time Procedure Performing Provider Status 02/09/24 11:48 AM Transesophageal Echo cardiogram - CV Auth (Verified) [facility] 07-03-2024 Note Patient's cervical spine is contracted and follow commands poorly. Procedure can not be done safelyas ordered. Consider CT imaging for valve evaluation Digitally Signed by PIO DONAHUE MD on 02/09/2024 11:45 AM [facility] [id number] Infectious disease Progress note Date of Service [...] Lima Vital RN on 02/09/2024 10:08 AM [facility] [id number] Cardiology Progress note Date of Service 02/08/2024 [...] ALIA MCCORMACK MD on 02/08/2024 10:57 PM [facility] [id number] Infectious disease Progress note Date of Service [...] in overall coloring, BLE mild rash/dry skin DANNA INCISIONS/DRESSINGS: None EXTREMITIES: +1 BLE/pedal edema, BLE [...] CIPRIANO DANG MD on 02/09/2024 02:37 PM [facility] InstituteXixwbbwg96-27-1391 Cardiology Progress note Date of Service 02/07/2024 [...] ALIA MCCORMACK MD on 02/07/2024 05:47 PM [facility] InstituteDjpevmjf18-69-1018 Infectious disease Progress note Date of Service [...] Oral Intake 720.00 Output Urinary Catheter Output: 1974.00 Stool Count 0.00 Total Summary Total Intake [...] blood cultures positive for E faecalis at [facility] with echocardiogram showing filiform strand-like echodensity so was transferred to [facility] for further evaluation. ID has been following [...] by JANAY SINHA on 02/07/2024 08:29 PM [facility] [id number] Palliative care Progress note Date of Service [...] Oral Intake 720.00 Output Urinary Catheter Output: 1975. Stool Count 0.00 Total Summary Total Intake [...] mcg tablet 88 mcg 1 tab(s), Oral, Mon//Wed//Fri levothyroxine 88 mcg tablet 88 mcg 1 [...] to want palliative care she would need [facility] palliative care and hospice team as she lives outside of our jurisdiction. CODE STATUS confirmed patient's CODE STATUS is a DNR CCA DNI. Advanced directives patient expresses that she has a healthcare power of jet wiper she is named her daughter Stefano. Bacteremia [...] MARIA ESTHER ALBRIGHT on 02/07/2024 10:39 AM [facility] Institute[facility]rxwnkrt64-06-5716 Note. MICRO - Microbiology PROCEDURE: Blood Culture (bacterial) [*1] SOURCE: Blood BODY SITE: COLLECTED DATE/TIME: 02/03/2024 05:50 EDT RECEIVED DATE/TIME: 02/03/2024 15:21 EDT START DATE/TIME: 02/03/2024 15:21 EDT FREE TEXT SOURCE: FINAL REPORTS Final Report [] Verified Date/Time/Personnel: 02/06/2024 10:55 EDT Enterococcus faecalis Isolated from anaerobe bottle only. Refer to previous culture for susceptibility. [id number] PRELIMINARY REPORTS Preliminary Report [] Verified Date/Time/Personnel: 02/03/2024 15:59 EDT Culture has been received in lab and is no growth to date. Routine cultures are held for 5 days. STAINS GSANA [] Verified Date/Time/Personnel: 02/05/2024 07:33 EDT Gram Positive Cocci in pairs Performing Locations *1: This test was performed at: [facility], [address] [place] [address], [id number]- , [facility] ([place])02-05-2024 Infectious disease Consult note Date of Service [...] answered, she was comfortable in bed having [facility] Review of Systems Fatigue at times [...] for SALAZAR evaluation Reported Takotsubo cardiomyopathy 01/2024 [facility] Filiform mobile echodensity on aortic valve, [...] ANNE BA, MD on 02/05/2024 05:13 PM [facility] [id number] Palliative care Consult note Date of Service [...] with the patient. She was [place] from [place] for further evaluationfor bacteremia, and consideration of [...] that she has a healthcare power of jet wiper she is named her daughter Stefano. 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 Nuha Curtis MD Bridge Saw Operator Messenger guille or Pager [phone] Problem List/Past Medical History Ongoing Acquired hypothyroidism [...] CANDIDA CURTIS MD on 02/05/2024 01:36 PM [facility] [id number] History and physical note Date of Service [...] pain, abdominal pain. She was admitted to [facility] On 02/01/2024. Prior to that, she was [...] self only. Believes that she is in [place] and the year is 2012. Abd: Not [...] NIGHAT OBRIEN MD on 02/05/2024 03:06 AM [facility] [id number] Note Discharge Instructions Thank you for allowing [facility] to assist you with your healthcare needs. The following is importantdischarge information regarding your hospital visit. Your Care Team ESTER BEJARANO, YARD TRUCK DRIVER Your Diagnosis Bacteremia Hypertension Takotsubo cardiomyopathy Weakness What to do next Scheduled Follow-Up Appointments Appointment Type When Where Contact Information StatusEcho - Echocardiogram Adult 08/21/2024 11:00 AM [facility] Radiology [phone] Confirmed CV OV 09/21/2024 01:15 PM [facility] Heart & Vascular [facility] [place] Confirmed Follow Up Appointments Follow Up with [facility] When:01/10/2024 09:30 AM EDT Where:[address] [place] [address]- Additional Information: This is your post-hospital cardiology [...] to receive it can visit one of [facility] vaccine clinics. There are many vaccine clinic locations within the [facility]. For locations and available times, please visit https://[email or web address].[place].gov/. It is important to note that some COVID mobile vaccine clinics are held outdoors and may be canceled in rainy or stormy conditions. To learn more about pediatric vaccinations (ages 5-11), we invite you to visit the [facility] webpage. https://www.[facility].org/pages/8639-Yesid-Mavpiwfwdxm-Mssiiutumx-Dsjin-Sfw stions.htmlTo learn more about the COVID-19 vaccine, we invite you to visit the CDC website for a list of frequently asked questions.https://www.cdc.gov/coronavirus/2019-ncov/vaccines/faq.html [facility] Patient Portal Access Instructions: Stay connected with your healthcare team and access your personal medical information anytime with the [facility] [employer] Patient Portal. Please follow the directions below to create your [facility] [employer] account: 1.Access the email account you provided upon registration to the hospital/physician office.2.Look for an invitation email from [facility].3.Open the email and access the invitation link: AcceptInvitation to [facility].4.Fill in the required martinez to create your account. To access your account, visit registracija [email or web address]. Click the blue button labeled "Access Patient Portal" and then log in with the username and password that you created in the steps above. You will be able to view your test results, lab results, a summary of your visits, upcoming appointments and more. There is also a convenient messaging option where you can send secure messages to your p zlienvider. In addition, you will have the ability to download any documents or summaries to your computer and/or send the information securely to a physician. Remember that your healthcare information is confidential, so carefully consider who you will allowto register on the [employer] Patient Portal for access to your information. You can also access the [facility] Patient Portal on the Conner Starteedwhere guille. Simply click on "Patient Portal" and then log into your account. If you would like to receive a full copy of your medical records, please contact the [facility] Medical Records Department by calling [phone], Wednesday through Wednesday between 8 a.m. and [...] Call your local pharmacy or go to http://bit.[email or web address]/[email or web address] to find one close to you.3.Make use of household items: Use cat litter or old coffee grounds to dispose medications if other options arenot available. Mix your drugs with these household products, seal them in an airtight container andthrow it into the garbage. Call [facility]: [phone] to be sure your drugs can be [...] and explained to me and I,STEFANO WASHINGTON my current condition and have read and understand these discharge instructions. I have received a written copy of the plan/instructions. If I have questions, I am aware that I should contact my doctor. Patient/Urgent Care Physician Signature: Date/Time: Relationship to Patient: Witness Name/Signature: Date/Time: [facility]06-28-2024 Note Date of Service 02/04/2024 Chief Complaint bacteremia Subjective Patient seen and evaluated this morning while resting in bed, daughter at the bedside. Patient is now agreeable to transfer to another facility for SALAZAR and possible ID consult. Family requests that [facility] be called first. [facility] states no beds today at all and does not offer optionof going on a list. Family is agreeable to transfer to [facility] but there is quite a [...] was collected was negative. Urine culture from [facility] grew actinomyces naeslundii. She was treated with [...] to inpatient due to bacteremia.Patient accepted by [facility] and has precert good through 02/07. Continue PT and OT while here. 4. Takotsubo cardiomyopathy Found during recent heart cath at [facility]. She was started on Coreg 3.125 mg [...] by KUMAR JAMES on 02/04/2024 03:24 PM [facility]06-28-2024 Note. MICRO - Microbiology PROCEDURE: Blood Culture (bacterial) [*1] SOURCE: Blood BODY SITE: COLLECTED DATE/TIME: 02/02/2024 06:25 EDT RECEIVED DATE/TIME: 02/02/2024 17:02 EDT START DATE/TIME: 02/02/2024 17:02 EDT FREE TEXT SOURCE: FINAL REPORTS Final Report [] Verified Date/Time/Personnel: 02/04/2024 11:35 EDT Enterococcus faecalis Isolated from aerobe bottle only. Refer to previous culture for susceptibility. [id number] collected 01-31-24 PRELIMINARY REPORTS Preliminary Report [] [...] Locations *1: This test was performed at: [facility], [address] [place] [address], [id number] , [facility] ([place])02-03-2024 Note Date of Service 02/03/2024 Chief Complaint [...] was collected was negative. Urine culture from [facility] grew actinomyces naeslundii.She was treated with cefdinir. [...] to inpatient due to bacteremia.Patient accepted by [facility] and has precert good through 02/07. Continue PT and OT while here. 4. Takotsubo cardiomyopathy Found during recent heart cath at [facility]. DVT prophylaxiis with Lovenox. Code status: DNRCCA [...] by KUMAR JAMES on 02/03/2024 04:05 PM [facility]06-27-2024 Note. MICRO - Microbiology PROCEDURE: Blood Culture (bacterial) [*1] SOURCE: Blood BODY SITE: Arm L COLLECTED DATE/TIME: 02/01/2024 05:34 EDT RECEIVED DATE/TIME: 02/01/2024 14:42 EDT START DATE/TIME: 02/01/2024 14:42 EDT FREE TEXT SOURCE: FINAL REPORTS Final Report [] Verified Date/Time/Personnel: 02/03/2024 11:26 EDT Enterococcus faecalis Isolated from aerobe and anaerobe bottles. Refer to previous culture for susceptibility. [id number] collected 01-31-24 PRELIMINARY REPORTS Preliminary Report [] Verified Date/Time/Personnel: 02/02/2024 09:02 EDT Enterococcus faecalis Isolated from aerobe and anaerobe bottles. Refer to previous culture for susceptibility. [id number] collected 01-31-24 Final report to follow. Preliminary [...] Locations *1: This test was performed at: [address], [facility] , [facility] ([place])02-03-2024 Note. MICRO - Microbiology PROCEDURE: Blood Culture (bacterial) [*1] SOURCE: Blood BODY SITE: Arm R COLLECTED DATE/TIME: 02/01/2024 05:34 EDT RECEIVED DATE/TIME: 02/01/2024 14:42 EDT START DATE/TIME: 02/01/2024 14:42 EDT FREE TEXT SOURCE: FINAL REPORTS Final Report [] Verified Date/Time/Personnel: 02/03/2024 11:25 EDT Enterococcus faecalis Isolated from aerobe and anaerobe bottles. Refer to previous culture for susceptibility. [id number] Collected 01-31-24 PRELIMINARY REPORTS Preliminary Report [] [...] Locations *1: This test was performed at: [facility], [address] [place] [address], [facility] , [facility] ([place])02-02-2024 Note ORIGINAL EXAMINATION: CT OF THE ABDOMEN [...] Sign Date: 02/02/2024 5:34:24 PM Ordering Provider: [facility]06-26-2024 Note Date of Service 02/02/2024 Chief Complaint [...] that wascollected was negative. Urine culture from [facility] grew actinomyces naeslundii. She was treated with [...] to inpatient due to bacteremia.Patient accepted by [facility] and has precert good through 02/07. 4. Takotsubo cardiomyopathy Found during recent heart cath at [facility]. DVT prophylaxiis with Lovenox. Code status: DNRCCA [...] and documenting in chart. Digitally Signed by KUAMR JAMES on 02/02/2024 03:16 PM [facility]06-26-2024 Note. MICRO - Microbiology PROCEDURE: Blood Culture (bacterial) [*1] SOURCE: Blood BODY SITE: Arm R COLLECTED DATE/TIME: 01/31/2024 01:15 EDT RECEIVED DATE/TIME: 01/31/2024 15:05 EDT START DATE/TIME: 01/31/2024 15:05 EDT FREE TEXT SOURCE: FINAL REPORTS Final Report [] Verified Date/Time/Personnel: 02/02/2024 07:29 EDT Enterococcus faecalis Isolated from aerobe and anaerobe bottles. Refer to previous culture for susceptibility. [id number] PRELIMINARY REPORTS Preliminary Report [] Verified Date/Time/Personnel: [...] Locations *1: This test was performed at: [address], [facility] , [facility] ([place])02-02-2024 Note. MICRO - Microbiology PROCEDURE: Blood Culture [...] Locations *1: This test was performed at: [facility], [address] [place] [address], [id number] , [facility] ([place])02-01-2024 Hospital Discharge instructions Follow Up Care 02/01/2024 12:18:47 With:BROOKS OSUNA Address: [address] [address]- When:01/10/2024 09:30:00 Comments:This is your post-hospital cardiology appointment. [facility] 06-25-2024 Note Date of Service 02/01/2024 Chief Complaint Bacteremia History of Present Illness 83-year-old female with past medical history significant for HTN, HLD, hypothyroidism, GERD, PE, NSTEMI, Takotsubo cardiomyopathy (01/2024), aortic stenosis. Patient was originally seen at [facility] on 01/20/2024 where she was diagnosed withan NSTEMI. Patient had cardiac catheterization done with no blockages but was notable for Takotsubocardiomyopathy. Echo showed normal LVEF and moderate aortic stenosis. She was treated for a UTI with cefdinir. She was admitted to [facility] TCU. Her progress has been labile. [...] subsequently discharged from TCU and admitted to [facility] inpatient. On exam today, pt denies [...] was collected was negative. Urine culture from [facility] grew actinomyces naeslundii. She was treated with [...] Constant Order Digitally Signed by STEFANO GRAHAM ICHTHYOLOGY TEACHER-ASSESSMENT TECHNICIAN on 02/01/2024 02:01 PM [facility]06-25-2024 Note* Exam Date Time Procedure Performing Provider Status 02/01/24 2:01 PM Echocardiogram, Adult - CV Auth (Verified) [facility] 06-25-2024 Evaluation + Plan noteExtracted from: Title:History and Physical Author:STEFANO GRAHAM ICHTHYOLOGY TEACHER-ASSESSMENT TECHNICIAN Date:02/01/24 1. Bacteremia 2. Hypertension 3. Weakness Bacteremia unclear source of infection. Blood cultures grew Enterococcus faecalis. Start ampicillin 2 g every 4 hours x 7 days. Stop date 02/08/2024. Urinalysis that was collected was negative. Urine culture from [facility] grew actinomyces naeslundii. She was treated with [...] Scheduled Provider: Location:[facility] Appointment Type:CV OV [facility] 06-24-2024 Note Date of Service 01/31/2024 Chief Complaint Asthenia Subjective 83-year-old female with past medical history significant for HTN, HLD, hypothyroidism, GERD, PE, NSTEMI, Takotsubo cardiomyopathy (01/2024), aortic stenosis. Patient was originally seen at [facility] on 01/20/2024 for increasing weakness. Shewas having [...] for SNF. She was subsequently admitted to [facility] TCU. Initially patient was struggling with [...] may include grammatical and/or spelling errors. CPT: 55396 Anticipated Date of Discharge Within 5 days Time Spent 20 minutes Digitally Signed by STEFANO GRAHAM on 01/31/2024 03:23 PM [facility]06-24-2024 Nurse Progress note pt refusing 2 am labs at this time. traffic operator aware and will attempt to collect later in am. Digitally Signed by MICH Squires on 01/31/2024 03:19 AM [facility]06-24-2024 Note ORIGINAL EXAMINATION: TWO XRAY VIEWS [...] Sign Date: 01/31/2024 12:50:22 AM Ordering Provider: NOVEMBER [facility]06-22-2024 Nurse Progress note Pt has not voided since beginning of shift and has attempt to go on bedpan twice. Bladder scan doneshowing 593mL. Pt straight cathed per standing order and 400mL emptied from bladder. Urine clear and yellow. REBECCA Olivas notified. Pt denies discomfort other than "usual arthritis". PRN tylenol administered. Digitally Signed by Allison Angela RN on 01/29/2024 02:54 PM [facility]06-22-2024 Nurse Progress note Therapy reported pt [...] Allison Angela RN on 01/29/2024 01:40 PM [facility]06-21-2024 Note Date of Service 01/28/2024 Chief Complaint Asthenia Subjective 83-year-old female with past medical history significant for HTN, HLD, hypothyroidism, GERD, PE, NSTEMI, Takotsubo cardiomyopathy (01/2024), aortic stenosis. Patient was originally seen at [facility] on 01/20/2024 for increasing weakness. Shewas having [...] for SNF. She was subsequently admitted to [facility] TCU. Initially patient was struggling with [...] may include grammatical and/or spelling errors. CPT: 43784 Anticipated Date of Discharge 02/03 Time Spent 20 minutes Digitally Signed by STEFANO GRAHAM on 01/28/2024 12:03 PM [facility]06-16-2024 Evaluation + Plan noteExtracted from: Title:History and Physical Author:KUMAR JAMES Date:01/23/24 1. Asthenia Consult placed to PT and OT to evaluate and treat - following. business services intern following for discharge planning needs. 2. Takotsubo [...] collaborating with physician, and documenting in chart. CPT#03484 Future Appointments Appointment Date:08/21/2024 11:00:00 AM Scheduled Provider: Location:[facility] Appointment Type:Echo - Echocardiogram Adult Appointment Date:09/21/2024 01:15:00 PM Scheduled Provider: Location:[facility] Appointment Type:CV OV [facility] 06-16-2024 Note Date of Service 01/23/2024 Chief Complaint weakness History of Present Illness Patient is an 83-year-old female, who follows with Ester SÁNCHEZ with a past medical history significant for hypertension, hypothyroidism, hiatal hernia and GERD, presents to [facility] transitional care program for rehab before returning home. Patient was admitted to [facility] on 01/19 due to increased weakness at home. Patient was just in the TCU here at [facility] from 11/26-12/10 for rehab following a hospitalization at [facility]. She stated on admission that she had been getting around fine until 01/19 when she felt much weaker than usual. She also complained of some left shoulder pain that radiated down her left arm. [facility] but felt that her urine was still dark and foul smelling. On evaluation in the ED, her initialtroponin was noted to be 3264 while her EKG demonstrated no acute ST changes. Patient was taken to the hatchery laborer from ED. The cardiac catheterization demonstrated no blockages but was notable for Takotsubo cardiomyopathy. Cardiology recommended that her nifedipine be discontinued and started her on c arvedilol 3.125 mg PO BID. Echo was done which demonstrated EF 65% with normal systolic function, PA systolic pressure of 34 mmHg as well as moderate aortic stenosis. Patient was also diagnosed with a UTI and started on ceftriaxone IV. Previous urine [...] OT to evaluate and treat - following. business services intern following for discharge planning needs. 2. Takotsubo [...] collaborating with physician, and documenting in chart. CPT#18858 Problem List/Past Medical History Ongoing Acquired hypothyroidism [...] Order Digitally Signed by KUMAR JAMES on 01/23/2024 02:32 PM Digitally Signed by KUMAR JAMES on 01/23/2024 02:37 PM [facility]06-15-2024 Hospital Discharge instructions Follow Up Care 01/22/2024 13:08:57 With:BROOKS OSUNA Address: [address] [address]- When:02/09/2024 09:30:00 Comments:This is your cardiology post-hospital appointment. It is with Dr. Anderson's physician assistant golf professional. The office is inside [facility]. With:ESTER BEJARANO, YARD TRUCK DRIVER Address: [address] [address]- When: Unknown [facility] History of Present illness Narrative* Nicky Paz LPN - 01/20/2024 6:31 PM EDT Scan on 01/20/2024 4:13 PM by ProviderLizandro PA-C Scan on 01/20/2024 3:44 PM by ProviderLizandro PA-C: Consultation - Emergency Medicine Scan on 01/20/2024 2:21 PM by ProviderLizandro PA-C: Miscellaneous Cardiac documented [facility] Telephone encounter Note * Telephone Encounter - Carl Encarnacion MD - 01/11/2024 4:46 PM EDT Noted. [facility]06-04-2024 Miscellaneous Notes* Telephone Encounter - Carl Encarnacion MD - 01/11/2024 4:46 PM EDT Noted. * Telephone Encounter - Ana Parish LPN - 01/11/2024 4:05 PM EDT Jonathan with [facility] calls to report pt was discharged from PT today. Jonathan reports pt has made good progress and pt said she is done with PT. Ana Parish LPN documented in this encounterOhio[facility]06-04-2024 Telephone encounter Note * Telephone Encounter - Ana Parish LPN - 01/11/2024 4:05 PM EDT Jonathan Crane PT calls to report pt was discharged from PT today. Jonathan reports pt has made good progress and pt said she is done with PT. Ana Parish LPN [facility]05-31-2024 Telephone encounter Note* Telephone Encounter - Yancy Wetzel RN - 01/07/2024 4:38 PM EDT Call placed to daughter and notified of below message. Stefano verbalizes understanding. Yancy Wetzle RN [facility]05-31-2024 Miscellaneous Notes* Telephone Encounter - Yancy [...] previous ATB was. Requesting prescription go to [facility]. Please review and advise, Yancy Wetzel RN documented in this encounterOhio[facility]05-31-2024 Telephone encounter Note * Telephone Encounter - Ester Bejarano APRN.PRINCESS - 01/07/2024 4:28 PM EDT Very possible. [...] with a full glass of water. [facility]05-31-[facility] Telephone encounter Note* Telephone Encounter - [...] previous ATB was. Requesting prescription go to [facility]. Please review and advise, Yancy Wetzel RN [facility]05-30-2024 Telephone encounter Note* Telephone Encounter - Carl Encarnacion MD - 01/06/2024 6:15 PM EDT Info noted. Patient has been on the tramadol for several years and the last script for compazine was back in 05/2023 per oncology. [facility]05-30-[facility] Miscellaneous Notes* Telephone Encounter - Carl Encarnacion MD - 01/06/2024 6:15 PM EDT Info noted. Patient has been on the tramadol for several years and the last script for compazine was back in 05/2023 per oncology. * Telephone Encounter - Angeline Robbins RN - 01/06/2024 3:36 PM EDT Zabrina from [facility] calls and reports that patient is being discharged from OT services due to patient meeting goals. Zabrina also notes that patient's prn prochlorperazine does have an interaction with Tramadol. Patientreports that she does not take prochlorperazine often. Angeline Robbins RN documented in this encounterOhiohealth [facility]05-30-2024 Telephone encounter Note * Telephone Encounter - Angeline Robibns RN - 01/06/2024 3:36 PM EDT Zabrina from [facility] calls and reports that patient is being discharged from OT services due to patient meeting goals. Zabrina also notes that patient's prn prochlorperazine does have an interaction with Tramadol. Patientreports that she does not take prochlorperazine often. Angeline Robbins RN [facility]05-30-2024 Telephone encounter Note* Telephone Encounter - Kumar Cooley MA - 01/06/2024 10:12 AM EDT Patient was made aware of the results. Patient verbalizes understanding. Kumar Cooley Ma [facility]05-30-2024 Miscellaneous Notes* Telephone Encounter - Kumar [...] Izzy Duarte LPN documented in this encounterOhiohealth [facility]05-30-2024 Telephone encounter Note * Telephone Encounter - Ester Bejarano APRN.CNS - 01/06/2024 9:43 AM EDT Please let patient know that she does have a E. coli infection in her urine. I am calling in Cipro twice daily for 7 days. Repeat urinalysis once antibiotic is completed. [facility]05-30-[facility] Telephone encounter Note* Telephone Encounter - Izzy Duarte LPN - 01/06/2024 9:19 AM EDT Daughter calling for results of pt's UA. Please advise, Pharmacy updated. Izzy Duarte LPN [facility]05-28-2024 Telephone encounter Note* Telephone Encounter - [...] Please advise. Thank you. Ana Parish LPN. [facility]05-28-2024 Miscellaneous Notes* Telephone Encounter - Ana [...] you. Ana Parish LPN. documented in this encounterOhiohealth [facility]05-18-[facility] [facility] History of Present illness Narrative* Carl Encarnacion MD - 12/25/2023 11:20 AM EDT Patient's home health 485 form / care plan for certification period 12/14/2023 to 02/11/2024 reviewed and signed. Relevant medical records were reviewed. No changes were indicated documented in this encounterOhiohealth Shelby Hospital05-14-2024 NoteHNO ID: [id number] Author: ZABRINA CHAVEZ LPN Service: ? Author Type: LICENSED NURSE Type: Progress Notes Filed: 12/21/2023 14:07 Note Text: Scan on 12/21/2023 10:35 AM by ProviderLizandro PA-C: Discharge Summary [facility]Ohio[facility] History of Present illness Narrative* Zabrina Chavez LPN - 12/21/2023 2:07 PM EDT Scan on 12/21/2023 10:35 AM by ProviderLizandro PA-C: Discharge Summary Zabrina Chavez LPN documented in this encounterOhiohealth [facility] Hospital05-09-2024 Telephone encounter Note * Telephone Encounter - Dannielle Tam MA - 12/16/2023 3:43 PM EDT Patient informed and verbalized understanding. Dannielle Tam MA [facility]05-09-2024 Miscellaneous Notes* Telephone Encounter - Dannielle Tam MA - 12/16/2023 3:43 PM EDT Patient informed and verbalized understanding. Dannielle Tam MA * Telephone Encounter - Ester Bejarano APRN.YARD TRUCK DRIVER - 12/16/2023 3:31 PM EDT Please let patient know that she does have a urinary tract infection with E. coli. I am sending a prescription for Bactrim to the pharmacy to take 1 tablet twice daily for 5 days. Please take each dose with a full glass of water. We should recheck urinalysis when she finishes her antibiotic. documented in this encounterOhiohealth [facility] Hospital05-09-2024 Telephone encounter Note * Telephone Encounter [...] urinalysis when she finishes her antibiotic. [facility]05-08-[facility] Telephone encounter Note* Telephone Encounter - Keily Rico MA - 12/15/2023 4:27 PM EDT Left detailed message. Keily Rico MA [facility]05-08-2024 Miscellaneous Notes* Telephone Encounter - Keily Rico MA - 12/15/2023 4:27 PM EDT Left detailed message. Keily Rico MA * Telephone Encounter - Carl Encarnacion MD - 12/15/2023 4:24 PM EDT Yes I'm ok with the additional 3 visits. * Telephone Encounter - Gina Curiel LPN - 12/15/2023 12:27 PM EDT Kelsie from [facility] calling verbal ok for 3 additional visits for OT. They plan to see patient 1 time a week for 3 weeks. Please advise. documented in this encounterOhiohealth [facility] Hospital05-08-2024 Telephone encounter Note * Telephone Encounter - Carl Encarnacion MD - 12/15/2023 4:24 PM EDT Yes I'm ok with the additional 3 visits. [facility]05-08-[facility] Telephone encounter Note* Telephone Encounter - Gina Curiel LPN - 12/15/2023 12:27 PM EDT Kelsie from [facility] calling verbal ok for 3 additional visits for OT. They plan to see patient 1 time a week for 3 weeks. Please advise. [facility]05-07-[facility] Telephone encounter Note* Telephone Encounter - Carl Encarnacion MD - 12/14/2023 3:30 PM EDT Noted. Med list updated. [facility]05-07-20[facility] Miscellaneous Notes* Telephone Encounter - Carl Encarnacion MD - 12/14/2023 3:30 PM EDT Noted. Med list updated. * Telephone Encounter - Mary Krueger RN - 12/14/2023 2:22 PM EDT Ash PT- [facility]- reports he saw patient today for start of care, and will continue to see patient for 7 more visits. Reports patient was in [facility], then transferred to [facility], then discharged to home on 12-11-23. [...] (mucinex) medication prn. documented in this encounterOhiohealth Shelby Hospital05-07-2024 Telephone encounter Note * Telephone Encounter - Mary Krueger RN - 12/14/2023 2:22 PM EDT Jonathan- PT- [facility]- reports he saw patient today for start of care, and will continue to see patient for 7 more visits. Reports patient was in [facility], then transferred to [facility], then discharged to home on 12-11-23. [...] a mucous relief (mucinex) medication prn. [facility]05-06-2024 Note* Addendum Note - Ester Bejarano APRN.CNS - 12/13/2023 1:45 PM EDTAddended by: ESTER BEJARANO on: 12/13/2023 01:45 PM Modules accepted: Orders [facility]05-06-2024 Miscellaneous Notes* Addendum Note - Ester Bejarano APRN.CNS - 12/13/2023 1:45 PM EDTAddended by: ESTER BEJARANO on: 12/13/2023 01:45 PM Modules accepted: Orders documented in this encounterOhiohealth Shelby Hospital05-06-2024 Instructions* Patient Instructions* Ester Bejarano APRN.CNS - 12/13/2023 1:15 PM EDT 1) Get urine culture 2) Handicapped placard for 5 years 3) Keep appointment February 16 as scheduled documented in this encounterOhio[facility] History of Present illness Narrative* Ester [...] 03/2023: bilaterally Ovarian cancer (HCC) 05/17/2023 Seeing host hostess Pneumonia due to COVID-19 virus 05/07/2021 04/27/2021 [...] as needed for worsening/no improvement. Ester Bejarano APRN.YARD TRUCK DRIVER documented in this encounterOhiohealth [facility]05-06-[facility] Telephone encounter Note* Telephone Encounter - Sruthi Pisano MA - 12/13/2023 11:49 AM EDT Yuri was notified Sruthi Pisano MA [facility]05-06-[facility]24 Miscellaneous Notes* Telephone Encounter - Sruthi Pisano MA - 12/13/2023 11:49 AM EDT Yuri was notified Sruthi Pisano MA * Telephone Encounter - Carl Encarnacion MD - 12/13/2023 10:53 AM EDT I will follow for HHC orders. The F2f report needs signed by the provider who placed the order to consult [facility] for PHYSICAL THERAPY and OT at [facility]. * Telephone Encounter - Izzy Duarte LPN - 12/13/2023 9:10 AM EDT Yuri with [facility] calling to let you know pt is went home from [facility] over the weekend and pt has been referred to [facility] for PT and OT. DX: had a fall and was admitted for rhabdomyolysis. Please call with verbal orders that you will follow and sign for Home Care. Izzy Duarte LPN documented in this encounterOhiohealth Shelby Hospital05-06-2024 Telephone encounter Note * Telephone Encounter - Carl Encarnacion MD - 12/13/2023 10:53 AM EDT I will follow for HHC orders. The F2f report needs signed by the provider who placed the order to consult [facility] for PHYSICAL THERAPY and OT at [facility]. [facility]05-06-[facility]24 Telephone encounter Note* Telephone Encounter - Izzy Duarte LPN - 12/13/2023 9:10 AM EDT Yuri with [facility] calling to let you know pt is went home from [facility] over the weekend and pt has been referred to [facility] for PT and OT. DX: had a fall and was admitted for rhabdomyolysis. Please call with verbal orders that you will follow and sign for Home Care. Izzy Duarte LPN [facility]05-04-[facility]24 Nurse Discharge summary discharge instructions reviewed with daughter and pt, verbalized understanding, no questions at this time pt escorted out to private vehicle via [facility]05-04-2024 Note Discharge Instructions Thank you for allowing [facility] to assist you with your healthcare needs. The following is importantdischarge information regarding your hospital visit. Your Care Team ESTER BEJARANO MSN, YARD TRUCK DRIVER Your Diagnosis Acquired hypothyroidism Asthenia Benign hypertension Fever Gastro-esophageal reflux Rash What to do next Instructions From Your Doctor You were admitted to [facility] for rehab after a hospital stay at [facility]. You have progressed well with therapy and they feel that you are ready to transition back home. Our social economist has arranged for home health PT and OT to take over and see you in your home. We made no changes to your medications and you stated that you did not need any refills. Our social economist set-up an appointment with your PCP for next week. The date and time are on your discharge instructions. If you have any new or worsening problems, please contact your PCP or return to the ED. We wish you the best as you discharge home today. Thank you for using [facility] for your rehab needs! Scheduled Follow-Up Appointments Appointment Type When Where Contact InformationEcho - Echocardiogram Adult 08/21/2024 11:00 AM [facility] Radiology [phone] CV OV 09/21/2024 01:15 PM [facility] Heart & Vascular [facility] [place] Follow Up Appointments Follow Up with [facility] When 12/13/2023 11:00 AM EDT Why: This is your PCP appointment. It will be with the nurse practitioner, Ester Bejarano. Follow-up as scheduled. Where: [address] [place] [address] [phone] The Following Activity and Diet Have Been [...] Consider working with a physical therapist or sports trainer who can develop an exercise plan to help you gain muscle strength. General instructions Take pxym-bmx-rgfpgpy and prescription medicines only as told by [...] 07/26/2006 Document Revised: 03/01/2019 Document Reviewed: 03/01/2019 Elsevier Patient Education 2020 [employer] Additional Information VACCINATE! IT SAVES LIVES! Members of the community who have not yet received the COVID-19 vaccine and would like to receive it can visit one of [facility] vaccine clinics. There are many vaccine clinic locations within the [facility]. For locations and available times, please visit https://gettheshot.coronavirus.[place].gov/. It is important to note that some COVID mobile vaccine clinics are held outdoors and may be canceled in rainy or stormy conditions. To learn more about pediatric vaccinations (ages 5-11), we invite you to visit the [employer] webpage. https://www.Slateds.org/pages/7783-Lstma-Qxvngwimpje-Iuctllqxbz-Xnogi-Fha stions.htmlTo learn more about the COVID-19 vaccine, we invite you to visit the CDC website for a list of frequently asked questions.https://www.cdc.gov/coronavirus/2019-ncov/vaccines/faq.html [facility] Patient Portal Access Instructions: Stay connected with your healthcare team and access your personal medical information anytime with the [facility] Patient Portal. Please follow the directions below to create your [employer] account: 1.Access the email account you provided upon registration to the hospital/physician office.2.Look for an invitation email from [facility].3.Open the email and access the invitation link: AcceptInvitation to [facility] [employer] [employer].4.Fill in the required martinez to create your account. To access your account, visit registracija vozila/Reeheraranza. Click the blue button labeled "Access Patient Portal" and then log in with the username and password that you created in the steps above. You will be able to view your test results, lab results, a summary of your visits, upcoming appointments and more. There is also a convenient messaging option where you can send secure messages to your p jarrodder. In addition, you will have the ability to download any documents or summaries to your computer and/or send the information securely to a physician. Remember that your healthcare information is confidential, so carefully consider who you will allowto register on the [facility] Patient Portal for access to your information. You can also access the [facility] on the [facility] guille. Simply click on "Patient Portal" and then log into your account. If you would like to receive a full copy of your medical records, please contact the [facility] Medical Records Department by calling [phone], Wednesday through Wednesday between 8 a.m. and [...] Call your local pharmacy or go to http://ContextPlane.WANdisco/[email or web address] to find one close to you.3.Make use of household items: Use cat litter or old coffee grounds to dispose medications if other options arenot available. Mix your drugs with these household products, seal them in an airtight container andthrow it into the garbage. Call [facility]: [phone] to be sure your drugs can be [...] aware that I should contact my doctor. Patient/Urgent Care Physician Signature: Date/Time: Relationship to Patient: Witness Name/Signature: Date/Time: [facility]05-04-2024 Hospital Discharge instructions Patient Education 12/11/2023 08:02:58 [...] Consider working with a physical therapist or sports trainer who can develop an exercise plan to help you gain muscle strength. General instructions Take bkzh-spw-izjowos and prescription medicines only as told by [...] 07/26/2006 Document Revised: 03/01/2019 Document Reviewed: 03/01/2019 [employer] (PICA) Patient Education 2020 [employer] Follow Up Care 11/26/2023 15:27:14 With:[facility] Address: [address] [place] [phone]- [phone] When:12/13/2023 11:00:00 Comments:This is your PCP appointment. It will be with the nurse practitioner, Ester Bejarano. Follow-up as scheduled. [facility] 04-29-2024 Note Date of Service 12/06/2023 Chief Complaint Asthenia Subjective 83-year-old female with past medical history significant for HTN, HLD, hypothyroidism, GERD, PE. Patient presented to [facility] on 11/23/2023 after sustaining a fall at home. She was treated for rhabdomyolysis and UTI. She was initially treated with ceftriaxone and then transition to Keflex. She was evaluated by therapy services with recommendation for SNF. She was subsequently admitted to [facility] TCU. 12/01 therapy reported that patient [...] may include grammatical and/or spelling errors. CPT: 38439 Anticipated Date of Discharge 12/09 Time Spent 22 minutes Digitally Signed by STEFANO GRAHAM on 12/06/2023 11:26 AM [facility]04-29-2024 Telephone encounter Note* Telephone Encounter - Kristen Eugene PA-C - 12/06/2023 10:21 AM EDT The following approved medication requests have been transmitted electronically. Requested Prescriptions Signed Prescriptions Disp Refills traMADol (ULTRAM) 50 mg tablet 60 tablet 0 Sig: Take 1 tablet by mouth two times a day for 30 days. for arthritis pain. Authorizing Provider: KRISTEN EUGENE PA-C [facility]04-29-2024 Miscellaneous Notes* Telephone Encounter - Kristen Eugene PA-C - 12/06/2023 10:21 AM EDT The following approved medication requests have been transmitted electronically. Requested Prescriptions Signed Prescriptions Disp Refills traMADol (ULTRAM) 50 mg tablet 60 tablet 0 Sig: Take 1 tablet by mouth two times a day for 30 days. for arthritis pain. Authorizing Provider: KRISTEN EUGENE PA-C * Telephone Encounter - [place] Trina Estrada - 12/06/2023 8:03 AM EDT Patient has been identified by name and date of : Yes Stefano, payal phones for refill(s): Requested Prescriptions Pending Prescriptions Disp Refills traMADol (ULTRAM) 50 mg tablet 60 tablet 0 Sig: Take 1 tablet by mouth two times a day for 30 days. for arthritis pain. Date of last office visit in primary care: 08/18/2023 Date of next office visit in primary care: 02/17/2024 Please advise. Thank you. Trina Estrada. documented in this encounterOhio[facility] Hospital04-29-2024 Telephone encounter Note * Telephone Encounter - [place]ale Trina Estrada - 12/06/2023 8:03 AM EDT Patient has been identified by name and date of : Yes Stefano, payal phones for refill(s): Requested Prescriptions Pending Prescriptions Disp Refills traMADol (ULTRAM) 50 mg tablet 60 tablet 0 Sig: Take 1 tablet by mouth two times a day for 30 days. for arthritis pain. Date of last office visit in primary care: 08/18/2023 Date of next office visit in primary care: 02/17/2024 Please advise. Thank you. Trina Estrada. [facility] Note Date of Service 12/03/23 Chief Complaint Asthenia Subjective 83-year-old female with past medical history significant for HTN, HLD, hypothyroidism, GERD, PE. Patient presented to [facility] on 11/23/2023 after sustaining a fall at home. She was treated for rhabdomyolysis and UTI. She was initially treated with ceftriaxone and then transition to Keflex. She was evaluated by therapy services with recommendation for SNF. [facility] therapy reported that patient has had [...] developing a rash over her whole body. Itwas pruritic but this improved after she got [...] mcg tablet 88 mcg 1 tab(s), Oral, Mon/Tu/Wed//Wed/Sat multivitamin (Myadec) with minerals Therapeutic Multiple Vitamins [...] and may include grammatical and/or spelling errors. 27711 Anticipated Date of Discharge 12/16 Time Spent 30 minutes Digitally Signed by STEFANO GRAHAM on 12/03/2023 11:27 AM [facility]04-26-2024 HCoV 229E RNA FAUSTO+non-probe Ql (Nph) Not Detected *NA* (12/03/23 8:03 AM)AH Auto Viro/Sero [id number] Note Date of Service 12/01/2023 Chief Complaint [...] OT to evaluate and treat - following. business services intern following for discharge planning. 2. Benign hypertension [...] discussed plan of care with nursing, social security benefits interviewer and therapy, collaborating with physician, and documenting in chart. CPT#01990 Digitally Signed by KUMAR JAMES on 12/01/2023 07:37 PM [facility]04-20-2024 Note Date of Service 11/27/2023 Chief Complaint weakness History of Present Illness Patient is an 83-year-old female, who follows with Dr. Ministerio Crabtree with a past medical history significant for hypertension, hyperlipidemia, hypothyroidism, GERD and PE, presented to [facility] on 11/23/2023 after sustaining a fall at [...] by insurance and arrived last evening for [facility]. Patient was seen this morning while resting in her chair. She states that she is doing well and denies any new complaints. She continues to have pain in her left lower extremity when she bears weight. She states that her leg was imaged at [facility] and was negative for an acute fracture. Introduced self and role of hospitalist PRESSURE WELDER in her care while in the TCU. [...] PT and OT to evaluate and treat. business services intern following for discharge planning. 2. Benign hypertension [...] discussed plan of care with nursing, social security benefits interviewer and therapy, collaborating with physician, and documenting in chart. CPT#54276 Problem List/Past Medical History Ongoing Acquired hypothyroidism [...] by KUMAR JAMES on 11/27/2023 02:00 PM [facility]04-20-2024 Evaluation + Plan noteExtracted from: Title:History and Physical Author:KUMAR JAMES Date:11/27/23 1. Asthenia Acute, secondary to UTI and hospitalization. Consult placed to PT and OT to evaluate and treat. business services intern following for discharge planning. 2. Benign hypertension [...] discussed plan of care with nursing, social security benefits interviewer and therapy, collaborating with physician, and documenting in chart. CPT#36930 Future Appointments Appointment Date:08/21/2024 11:00:00 AM Scheduled Provider: Location:[facility] Appointment Type:Echo - Echocardiogram Adult Appointment Date:09/21/2024 01:15:00 PM Scheduled Provider: Location:[facility] Appointment Type:CV OV [facility] 04-19-2024 Consult note Author Dalila Biswas [facility] November 26, 2023 2:23pm Note Date/Time November 26, 2023 2:2 3pm [facility] Medical Records Department [address] [place] [address] Counseling Note - Pharmacy 11/26/23 1422 MR#: [id number] Acct: [id number] Name: STEFANO WASHINGTON Rep #:[id number] : 1940 83 From: Dalila Biswas PCP: Dr. Carl Encarnacion MD Status:ADM IN Y Location: [place] [address] Pharmacy DC Med Reconciliation Pharmacy Service has performed discharge [...] signed by Dalila Biswas> Date _ Dalila Biswas Cosigner Signature (if applicable): Date CC: ~ Signed [facility] Work Phone: 1(663) 558-458604-19-2024 Discharge summary Author [facility] November 26, 2023 1:50pm Note Date/Time November 26, 2023 1:5 0pm [facility] Medical Records Department [address] [place] [address] Discharge Summary 11/26/23 1349 MR#: [id number] Acct: [id number] Name: STEFANO WASHINGTON Rep #:[id number] : 1940 83 From: Kelby saldaña DO PCP: Dr. Carl Encarnacion MD Status:ADM IN [facility] Prov[facility] Date of Admission: 11/23/23 Date of [...] Patient is an 83-year-old female who presented [facility] ED on 11/23/2023 after a fall at [...] 34.3 ABG / Lab / Microbiology Data 04/19/24 08:31 11/26/23 08:31 Laboratory: Laboratory Results - [...] in before D/C Order can be placed): [facility] Facility Charges/Coding Visit Charges Inpatient E&M: 61763 Disch Hosp >30min 11/26/23 1350 <Electronically signed by Kelby Aguilar DO> Cosigner Signature (if applicable): CC: Dr. Kelby Aguilar DO; Dr. Carl Encarnacion MD~ Signed [facility] Work Phone: 1(594) 302-311404-19-2024 Discharge summary Author Kelby Aguilar [facility] November 26, 2023 1:49pm Note Date/Time November 26, 2023 1:4 7pm [facility] Medical Records Department [address] [place] [address] Transfer to [facility] MR#: [id number] Acct: [id number] Name: STEFANO WASHINGTON Rep #:[id number] : 1940 83 From: Kelby saldaña DO PCP: Dr. Carl Encarnacion MD Status:ADM IN Certification of patient admission REQUIRED AT TIME OF ADMISSION. I CERTIFY THAT POST-HOSPITAL F SERVICES ARE REQUIRED TO BE GIVEN ON AN IN-PATIENT BASIS BECAUSE OF THE ABOVE NAMED PATIENT'S NEED FOR LONG TERM CARE ON A CONTINUING BASIS FOR THE CONDITION(S) FOR WHICH HE/SHE WAS RECEIVING IN-PATIENT HOSPITAL SERVICES PRIOR TO HIS/HER TRANSFER TO THE [facility]. 11/26/23 1349<Electronically signed by Kelby Aguilar DO> [...] Patient is an 83-year-old female who presented [facility] ED on 11/23/2023 after a fall at [...] in before D/C Order can be placed): [facility] Facility 11/26/23 3220 <Electronically signed by Kelby Aguilar DO> Cosigner Signature (if applicable): CC: Dr. Carl Encarnacion MD ~ [facility] Work Phone: 1(231) 451-903504-19-2024 Progress note Author Kelby Aguilar [facility] November 26, 2023 11:44am Note Date/Time November 26, 2023 11: 44am [facility] Medical Records Department [address] [place] [address] Progress Note - Hospitalist 11/26/23 1141 MR#: [id number] Acct: [id number] Name: STEFANO WASHINGTON Rep #:[id number] : 1940 83 From: Kelby saldaña DO PCP: Dr. Carl Encarnacion MD Status:ADM IN [facility] Reason for Visit Reason for Visit: Diagnoses [...] concerns this morning. Had been told by case operator that [facility] rehab had accepted her and she was [...] Patient is an 83-year-old female who presented [facility] ED on 11/23/2023 after a fall at [...] following. Accepted to an hospital rehab at [facility], awaiting bed placement. Medically stable for [...] 35 minutes. Charges/Coding Visit Charges Inpatient E&M: 32976 Subs Hosp L2 11/26/23 1144 <Electronically signed by Kelby Aguilar DO> Cosigner Signature (if applicable): CC: ~ Signed [facility] Work Phone: 1(438) 835-728104-18-2024 Progress note Author Kelby Lauren [facility] November 25, 2023 2:47pm Note Date/Time November 25, 2023 12: 24pm [facility] Medical Records Department [address] [place] [address] Progress Note - Hospitalist 11/25/23 1224 MR#: [id number] Acct: [id number] Name: STEFANO WASHINGTON Rep #:[id number] : 1940 83 From: Kelby saldaña DO PCP: Dr. Carl Encarnacion MD Status:ADM IN [facility]: [facility] BQ063-4 Reason for Visit Reason for Visit: Diagnoses Rhabdomyolysis (11/23/23) Urinary tract infection, site not specified (11/23/23) Weakness (11/23/23) Unspecified fall, initial encounter (11/23/23) Subjective Subjective No acute events overnight. Patient seen at bedside this morning, case operator also present at bedside. Patient had fairly poor therapy scores yesterday and recommendation was for SNF on discharge. Unfortunately, case operator told patient and family this morning that TCU was not able to accept her. Patient and family were okay with referrals being sent to [facility] in-hospital rehab facilities instead. Patient [...] Intake and Output for Last 24 Hours 04/16/24 04/17/24 04/18/24 23:59 23:59 23:59 Intake Total 2400 / [...] Patient is an 83-year-old female who presented [facility] ED on 11/23/2023 after a fall at [...] patientwould be a better candidate for a nursing home facility on discharge as opposed to home health care. TCU not able to accept patient, referrals sent to [place] in [place] and hospital rehab facilities and are pending. [...] 35 minutes. Charges/Coding Visit Charges Inpatient E&M: 15264 Subs Hosp L2 11/25/23 5764 <Electronically signed by Kelby Aguilar DO> Cosigner Signature (if applicable): CC: ~ Signed [facility] Work Phone: 1(479) 279-912704-17-2024 Progress note Author Kelby Aguilar [facility] November 24, 2023 3:43pm Note Date/Time November 24, 2023 10: 18am [facility] Medical Records Department [address] [place] [address] Progress Note - Hospitalist 11/24/23 1018 MR#: [id number] Acct: [id number] Name: STEFANO WASHINGTON Rep #:[id number] : 1940 83 From: Kelby saldaña DO PCP: Dr. Carl Encarnacion MD Status:ADM IN [facility] Reason for Visit Reason for Visit: Diagnoses [...] Clear Calc 48.91, Est GFR (MDRD) Af Excw301, Est GFR (MDRD) Non-Af 105, BUN/Creatinine Ratio [...] Patient is an 83-year-old female who presented [facility] ED on 11/23/2023 after a fall at [...] would be a better candidate for a nursing home facility on discharge as opposed to [...] 35 minutes. Charges/Coding Visit Charges Inpatient E&M: 94794 Subs Hosp L2 11/24/23 7362 <Electronically signed by Kelby Aguilar DO> Cosigner Signature (if applicable): CC: ~ Signed [facility] Work Phone: 1(745) 800-482804-17-2024 [facility] History of Present illness Narrative* Keily Rico MA - 11/24/2023 3:20 PM EDT Scan on 11/23/2023 2:46 PM by Provider, SHANELLE Bone: Consultation - Emergency Medicine Scan on 11/23/2023 3:47 PM by Provider, SHANELLE Bone: Consultation - Emergency Medicine Patient admitted 11/23/2023 Keily Rico MA documented in this encounterOhio[facility]04-16-2024 Discharge summary Author Smith Ho [facility] November 23, 2023 3:37pm Note Date/Time November 23, 2023 8:4 2am [facility] Medical Records Department [address] [place] [id number] Emergency Department Summary 11/23/23 MR#: [id number] Acct: [id number] Name: STEFANO WASHINGTON Rep #:[id number] : 1940 83 From: Smith Ho MD PCP: Dr. Carl Encarnacion MD Status:ADM IN Location: [address] History of Present Illness Chief Complaint: [...] No shortening or rotation. She has normal hot mill roller strength both hands. She is able to [...] 77.0 H Lymph % (Auto) 12.9 L [place] % (Auto) 9.0 Eos % (Auto) 0.1 [...] Clarity Cloudy Urine pH 6.0 Ur Specific [place] 1.010 Urine Protein 30 H Urine Glucose [...] rhythm rate 100 no acute signs of [place] or ischemia. Right bundle branch block. Discharge Plan Dx/Rx/DC Orders Clinical Impression: Urinary tract infection, Generalized weakness, Rhabdomyolysis, Fall Disposition Disposition: Acute Care Hospital [facility] What to do if you have Problems For any increased pain, shortness of breath, bleeding, nausea or vomiting, chestpain, or any unexpected problems, contact your Primary Care Provider. Call [facility] ([phone]) or report to the closest Emergency Room. Call 911 if necessary. 11/23/23 3661 <Electronically signed by Smith Ho MD> Cosigner Signature (if applicable): CC: Dr. Carl Encarnacion MD ~ Signed [facility] Work Phone: [phone]) 301-426704-16-2024 History and physical note Author Kelby Aguilar [facility] [place] November 23, 2023 2:36pm Note Date/Time November 23, 2023 11: 38am [facility] Medical Records Department [address] [place] [address] H&P Exam - Hospitalist 11/23/23 1137 MR#: [id number] Acct: [id number] Name: STEFANO WASHINGTON Rep #:[id number] : 1940 83 From: Kelby saldaña DO PCP: Dr. Carl Encarnacion MD Status:ADM IN Location: [place] [id number] HPI - General General Date of Admission: 11/23/23 Date of Service: 11/23/23 Chief Complaint: Fall with weakness HPI Narrative STEFANO WASHINGTON, is a 83 F who presented to [facility] ED on 11/23/2023 after a fall at [...] UTI, patient was admitted for further management. [facility] Medical History (Updated 11/23/23 @ 12:59 by [...] 77.0 H, Lymph % (Auto) 12.9 L, [place] % (Auto) 9.0, Eos % (Auto) 0.1, [...] Clarity Cloudy, Urine pH 6.0, Ur Specific [place] 1.010, Urine Protein 30 H, Urine Glucose [...] Patient is an 83-year-old female who presented [facility] ED on 11/23/2023 after a fall at home and being down for several hours after that due to weakness. 1. Mechanical fall, acute on chronic debility ? Admit under inpatient status to [facility]. PT/OT/case management consulted. Lives at [...] 35 minutes. Charges/Coding Visit Charges Inpatient E&M: 31421 Init Hosp L2 11/23/23 1436 <Electronically signed by Kelby Aguilar DO> Cosigner Signature (if applicable): CC: Dr. Kelby Aguilar DO; Dr. Carl Encarnacion MD~ Signed [facility] Work Phone: 1(215) 804-512402-29-2024 Miscellaneous Notes* Telephone Encounter - Kristen Eugene [...] you. Linn Estrada. documented in this encounterOhiohealth Shelby Hospital02-01-2024 Note* Exam Date Time Procedure Performing Provider Status 09/09/23 12:44 PM Echocardiogram, Adult (AOH) Auth (Verified) [facility]-10-[facility] History of Present illness Narrative* Prosper [...] Castillo. Does not want to return to [place]. Does not want to take anything that may impact her blood counts. Not interested in PARP inhibitor. Declines labs and scans. Will continue to follow with Dr. Encarnacion, next appt scheduled 08/18/2023. Following with cardiology at [place]. She reports that she is feeling well. [...] - follow up as needed. Prosper Amador APRN.ASSESSMENT TECHNICIAN Portions of this note including HPI, ROS, impression/plan may have been copied forward as to provide important historical information essential in contributing to medical decision making. Documentation has been reviewed and edited as necessary to support clinical decision making for today's visit and to reflect my own independent evaluation of this patient. documented in this encounterOhiohealth Shelby Hospital12-18-20[address] Note[facility]12-08-2023 Miscellaneous Notes* Telephone Encounter - Michoacano EstradaAmanda - 07/16/2023 3:56 PM EST Scheduled with patient. * Telephone Encounter - Wilmar Forbes DO - 07/16/2023 1:20 PM EST Understood. She still requires ongoing monitoring for ovarian cancer. Please schedule follow-up office visit with me when able. CBC/CMP/CA125. Wilmar Hernandez. DO Leidy * Telephone Encounter - Sherin Martines LPN [...] canceled as requested documented in this encounterOhiohealth Shelby Hospital12-04-2023 Miscellaneous Notes* Telephone Encounter - Izzy Duarte LPN - 07/12/2023 2:11 PM EST Daughter notified and wants to make sure she does not have any problems with the next prescription. Called the [facility] and spoke with the pharmacist. [...] Izzy Duarte LPN documented in this encounterOhiohealth Shelby Hospital11-29-[address] Note[facility] [facility]11-29-2023 History of Present illness Narrative* Wilmar Forbes, - 07/07/2023 8:39 AM EST Oncologic problem(s): [...] Abs Lymph 1.00 - 4.00 k/uL 1.82 [place]% % 6.8 Abs [place] <0.87 k/uL 0.21 Eosin% % 1.6 Abs [...] is frail and would unlikely have tolerated keweenaw doublet. -Symptomatically tolerating carboplatin very well. -Reviewed [...] which included preparing to see the patient, [id number]-bpol patient care, completing clinical documentation, obtaining and/or reviewing separately obtained history, performing a medically appropriate examination, counseling and educating the pat ient/family/caregiver, ordering medications, tests, or procedures, communicating with other HCPs (not separately reported), and communicating results to the patient/family/caregiver. Wilmar Forbes DO documented in this encounterOhiohealth Shelby Hospital11-09-2023 Miscellaneous Notes* Telephone Encounter - Korin [...] Korin Mantilla RN documented in this encounterOhiohealth Shelby Hospital11-03-2023 Miscellaneous Notes* Telephone Encounter - Carl [...] patient. Stephanie Estrada documented in this encounterOhiohealth Shelby Hospital11-03-2023 Miscellaneous Notes* Telephone Encounter - Korin [...] Korin Mantilla RN documented in this encounterOhiohealth Shelby Hospital10-30-2023 Miscellaneous Notes* Telephone Encounter - Carl [...] to notify patient. Keily Rico MA Vira \\3 Jun 2007/2023 Last refill: * Telephone [...] medication - must be call in. Stefano D Le Pss documented in this encounterOhiohealth Shelby Hospital10-30-2023 Miscellaneous Notes* Telephone Encounter - Angeline [...] purposes. Angeline Shaikh documented in this encounterOhiohealth Shelby Hospital10-30-2023 Miscellaneous Notes* Telephone Encounter - Susan [...] Korin Mantilla RN documented in this encounterOhiohealth Shelby Hospital10-27-2023 NoteHNO ID: [id number] Author: Korin Mantilla RN Service: ? Author Type: Registered Nurse Type: Progress Notes Filed: 06/04/2023 1:18 PM Note Text: This visit was completed via telephone. Korin Mantilla RNSt. Francis Hospital10-27-2023 History of Present illness Narrative* Korin [...] Mantilla RN - 06/04/2023 1:14 PM EDT Inspector Golf Ball Pre Chemo Patient identified by name and date of . YES Confirmed date and time for chemotherapy ? YES Other appointments (labs, imaging) discussed? 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10-25-2023 Miscellaneous Notes * Telephone Encounter - Korin Mantilla RN - 06/02/2023 3:16 PM EDT Met with patient and introduced myself. Patient was given a My Journey binder with chemocare information, office contact information, thermometer, and additional chemotherapy resource booklets. Patient aware this nurse will review on scheduled appointment date. Korin Mantilla RN documented in this encounterOhiohealth Shelby Hospital10-25-2023 History of Present illness Narrative* Wilmar [...] (97.9 F), weight 73.5 kg (162 lb), [id number] %. Somewhat frail-appearing and in no acute [...] she would be able to tolerate a keweenaw doublet. -I discussed the logistics, potential risks [...] which included preparing to see the patient, wkdp-zi-jlrv patient care, completing clinical documentation, obtaining and/or reviewing separately obtained history, performing a medically appropriate examination, counseling and educating the pat ient/family/caregiver, ordering medications, tests, or procedures, and communicating results to thepatient/family/caregiver. Wilmar Forbes DO documented in this encounterOhiohealth Shelby Hospital10-25-2023 [facility]10-23-20[address] NoteSt[facility]10-23-2023 History of Present illness Narrative* Carl Encarnacion MD - 05/31/2023 8:50 AM EDT Patient's home health 485 form / care plan for certification period 05/12/2023 to 07/10/2023 reviewedand signed. Relevant medical records were reviewed. Changes were communicated to home health agency documented in this encounterOhiohealth Shelby Hospital10-09-2023 [facility]10-05-2023 Miscellaneous Notes* Telephone Encounter - Carl Encarnacion MD - 05/13/2023 4:57 PM EDT Noted. * Telephone Encounter - Angeline Robbins RN - 05/13/2023 11:34 AM EDT Kumar calling from [email or web address] [facility] to report plan of care for patient and nursing home willvisit patient 1 time a week for 2 weeks, 2 times a week for 2 weeks and 1 time a week for 3 weeks. [facility] will work with patient on teaching about chemotherapy and medication safety. Kumar also notes that patient has an order for Tramadol 50 mg twice a day. Patient was taking 100 mgonce a day. Kumar had explained to patient the importance of taking medication as prescribed. Angeline Robbins RN documented in this encounterOhiohealth Shelby Hospital09-25-2023 History of Present illness Narrative* Eliot Castillo MD - 05/03/2023 4:45 PM EDT Gynecologic Oncology [facility] Postop Re: Stefano Washington CC#: [id number] Date of Service: 05/03/2023 Dr. Jacky Graves [...] vaginal cuff. Bimanual exam reveals no tenderness. Photograph Inspector offered: Patient accepts, visit chaperoned by Tuyet [...] can receive treatment with Dr Forbes in [place] and return here after completion of chemotherapy. [...] documentation. All medicalrecord entries made by the allysonibe were at my direction and in my [...] changes were made. documented in this encounterOhiohealth Shelby Hospital09-25-2023 NoteHNO ID: [id number] Author: Eliot Castillo MD Service: ? Author Type: Physician Type: Progress Notes Filed: 05/04/2023 4:46 AM Note Text: Gynecologic Oncology [facility] Postop Re: Stefano Washington [facility]#: [id number] Date of Service: 05/03/2023 Dr. Jacky Graves [...] Dr. Nicole Maher review (more content not included)...[id number] Miscellaneous Notes* Telephone Encounter - Carl Encarnacion [...] Baltazar Bazzi LPN documented in this encounterOhiohealth Shelby Hospital09-06-[address] NoteSt[address] [facility]09-05-[address] NoteSt[facility]09-04-20[address] NoteSt[facility]09-03-20[address] NoteSt[facility]09-02-[address] [facility]-02-[address] Note[facility]09-02-[address] NoteSt[facility]09-01-20[address] NoteSt[facility] 04-09-2023 Miscellaneous Notes* Telephone Encounter - Tamiko Ramirez LPN - 04/09/2023 3:08 PM EDT Keisha from [facility] returned call and family declined Home Health, family wants patient to goto TCU or Rehab. [facility]emanager at [facility] will have to work on this [...] - 04/09/2023 1:42 PM EDT //Keisha from [facility] calling patient is currently in [facility] had ovarian mass, discharging sometime over the weekend. They received order for nursing home, PT/OT. Asking if PCP would follow and sign orders and give verbal order for delay in start of care until 04/13/2023? Aware PCP is out of office this afternoon. Please advise documented in this encounterOhiohealth Shelby Hospital09-01-[address] NoteSt[address] [facility]08-31-20[address] NoteSt[address] [facility]08-30-20[address] NoteSt[facility]08-30-20[address] NoteSt[facility]08-30-[address] [facility]08-30-20[address] NoteSt[facility]08-29-2023 Instructions* Patient Instructions* Ousmane Jones APRN.KACI, ROGE - 04/06/2023 3:43 PM EDT PATIENT PREOPERATIVE INSTRUCTIONS No ref. provider found has scheduled you for your procedure at this surgery center: [facility] [place] Scheduling Office: [phone] --[address] [place] [address]. Please read below carefully for your personalized [...] Procedures: - YOU MUST HAVE A RESPONSIBLE IT OPERATIONS SPECIALIST TAKE YOU HOME. A WEBFOCUS DEVELOPER OR CEMETERY LABORER CANNOT BE MADE A RESPONSIBLE IT OPERATIONS SPECIALIST. - We recommend that a responsible person [...] call the Wednesday before. Your surgeon s dental scheduler will tell you what time to call the office. - If you have not reached the departmental dental scheduler by 5 P.M., call [phone] after 5 P.M. the day before your surgery. Please be aware that emergency situations arise, which may delay or change your surgical time. If this happens, we will notify you as soon as possible and regret any inconvenience. If you already have an Advance Directive, please fax a copy to [phone] or email to for it to be [...] Jones APRN.CNP, DNP documented in this encounterOhiohealth Shelby Hospital08-29-2023 Miscellaneous Notes* Telephone Encounter - Ousmane Jones APRN.CNP, DNP - 04/06/2023 3:43 PM EDT Preop instruction documented in this encounterOhiohealth Shelby Hospital08-29-2023 History and physical note * Ousmane Jones APRN.CNP, DNP - 04/06/2023 3:00 PM EDT PREANESTHESIA CONSULT CLINIC TELEHEALTH VISIT I have communicated my name and active licensure. The patient's identity and physical location wereverified at the time of this visit. Either the patient or their legal merchandising representative has been informed of the risks and benefits of and alternatives to treatment through a remote evaluation and consents to proceed with the evaluation remotely. Patient has been identified by name and date of : Yes This is a virtual visit using [employer] video visit. It require patient-provider interaction for the medical decision making as documented below. Reason for contact: PACC visit Accompanied by: Self Scheduled Surgery: HYSTERECTOMY ABDOMINAL TOTAL WITH SALPINGO-OOPHORECTOMY BILATERAL with Eliot Castillo MD on 04/07/2023 at [facility]. Subjective CHIEF COMPLAINT: Patient presents [...] fevers. Neuro: No history of TIA's, stroke, YARD TRUCK DRIVER tumor, impaired sensorium, hemiplegia, paraplegia or quadraplegia. No neurological symptoms or problems. Respiratory: No history of current cough or dyspnea, or pneumonia in the past 6 weeks. No history of respiratory/pulmonary symptoms or problems. Cardiovascular: Positive for: HLD, Hypertension, on rx, PE on Eliquis 2 years ago during Covid infection, resolved with no reoccurrence, Negative for Recent NJ, Angina, Arrhythmia, CAD, Chest Pain, CHF, PVD, Valvular Heart Disease GI: Positive for GERD, Giant hiatal hernia per recent CT abdomen/pelvis on rx, Negative for PUD, Heartburn, Nausea, Vomiting, Abdominal pain, Hepatitis, Liver disease, Inflammatory bowel disease, Colon cancer, Rectal cancer, Diverticulitis, History of polyps : Negative for dysuria, frequency, incontinence, decreased stream, and hematuria, Positive for mild bilateral hydronephrosis per CT abdomen/pelvis 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 Patient is [...] Abnormal ECG Confirmed by MATT MOREJON, [facility] ([id number]) on 03/22/2023 2:44:01 PM Most recent [...] this time. Patient has been cleared by [facility] cardiology Desi Madison on 03/26/2023. Please see [...] device. I spent more than 0-20 minutes tlxp-zk-zuml with the patient and over half the [...] PM PAGER/CONTACT #: documented in this encounterOhiohealth Shelby Hospital08-16-2023 Miscellaneous Notes* Telephone Encounter - Nanci Calloway - 03/24/2023 2:35 PM EDT [facility] but patient will be receiving services elsewhere . documented in this encounterOhiohealth Shelby Hospital08-16-2023 Miscellaneous Notes* Telephone Encounter - Annmarie Mendoza APRN.CNP - 03/24/2023 2:28 PM EDT Patient's daughter called to report they found a cardiology office closer to home that they would like to go to instead as it is much closer to home. Appointment arranged with Dr.Sharan Ashok Crane Hydro Pneumatic Tester [phone] on Monday 03/26 @ 145pm. Will follow up with patient/daughter after appt to determine when surgery can be scheduled. Annmarie Mendoza APRN.KACI documented in this encounterOhiohealth Shelby Hospital08-14-2023 Miscellaneous Notes* Telephone Encounter - Tuyet [...] await call/try again. documented in this encounterOhiohealth Shelby Hospital08-14-2023 Miscellaneous Notes* Telephone Encounter - Tuyet Lorenz RN - 03/22/2023 3:42 PM EDT Spoke with daughter. Patient is scheduled for ECHO tomorrow , in [place]. * Telephone Encounter - Annmarie Mendoza APRN.KACI [...] [facility]. Thanks documented in this encounterOhiohealth Shelby Hospital08-14-2023 History of Present illness Narrative* Isamar [...] IV DATA: Not applicable SIGNED BY: RT Ari(Nicole) March 22, 2023 1:22 PM documented in this encounterOhiohealth Shelby Hospital08-14-2023 Miscellaneous Notes* Allied Health - Belkis Milton - 03/22/2023 1:00 PM EDT RADIOLOGY SERVICE PROGRESS NOTE DATE OF SERVICE: March 22, 2023 TIME OF SERVICE: 12:34PM EVENT: ARRIVED IN WHEELCHAIR ADDITIONAL EVENT DETAILS: NA SIGNATURE: Belkis Milton PATIENT NAME: Stefano Washington DATE: March 22, 2023 TIME: 12:56 PM PAGER/CONTACT #: documented in this encounterOhiohealth Shelby Hospital08-08-2023 Miscellaneous Notes* Telephone Encounter - Kaye Mchugh RN - 03/16/2023 5:06 PM EDT Called daughter and informed her of appt made. I was told that [place] is not available for several months.I did schedule patient for [place] and daughter was agreeable because we could get her in with Dr Castillo in about 2 weeks. Phone number given to daughter if they wish to try to get into [place] [phone] * Telephone Encounter - Ely Rico MD - 03/16/2023 4:18 PM EDT Consult order filed Ely Rico MD * Telephone Encounter - Kaye Mchugh RN - 03/16/2023 3:48 PM EDT I called patient at the request of Dr Rico. Dr Rico has reviewed the patient referral from Dr Encarnacion and believes patient should be seen by host hostess/onc. Patien tis agreeable. She asked me to call her daughter Stefano Quezada at [phone] to let her know. Patient's daughter is agreeable but states they do not want to go to [place]. They will go to [place]. Please file referral and let us know who you recommend in [place] documented in this encounterOhiohealth Shelby Hospital08-01-2023 History of Present illness Narrative* Reef Ioana Evangelista RT(R) - 03/09/2023 11:20 AM EDT Radiology [...] TIME: 1:26 PM documented in this encounterOhiohealth Shelby Hospital08-01-[address] NoteSt[address] [facility]07-03-2023 Miscellaneous Notes* Telephone Encounter - Kristen [...] advise. Kaye Donahue documented in this encounterOhiohealth Shelby Hospital06-27-2023 NoteSt[address] [facility]06-27-2023 History of Present illness Narrative* America [...] Planned: 12 Planned Treatment Interventions: Therapeutic exercise (98063), Neuromuscular re- education (26212), Therapeutic activities (27266), Self-half-way management (57998), Patient/Family/Caregiver Education, Gait Training (57360) PLAN FOR NEXT VISIT: Pt. instructed to [...] Treatment Interventions: Therapeutic Exercise, Therapeutic Activity, Self- Intermediate Management Evaluation Therapeutic Exercise: 1: *seated scapular [...] program as noted above with an (*). Self-Intermediate Management: 1: *instructed pt. to bring her [...] America Camejo PT documented in this encounterOhiohealth Shelby Hospital06-27-2023 Miscellaneous Notes* Telephone Encounter - Jeremiah [...] welcomed to get a 2nd opinion from [facility]. We do have pain management in [place] from neftaly manzo. Dr. Cohn and dr. White are private practice options in [place] as well if they would like to [...] appointment would be all the way in [place] and that is too far for patient. Daughter said she is going to take patient to [facility] for her back instead. This staff [...] assist with scheduling. Call daughter Stefano at [phone]. Thank you. * Telephone Encounter - Jeremiah [...] Kristen Eugene PA-C documented in this encounterOhiohealth Shelby Hospital06-21-[address] NoteSt[address] [facility]06-21-[address] NoteSt[facility]06-21-2023 History of Present illness Narrative* Kristen [...] Kristen Eugene PA-C documented in this encounterOhiohealth Shelby Hospital06-19-2023 Miscellaneous Notes* Telephone Encounter - Jeremiah [...] Quezada calling to verify lab order in [facility] so granddaughter can slate picker urine specimen supplies. Please file order and contact daughter when done. # [phone]. Vijaya Bishop, RN * Telephone Encounter - Jeremiah Puckett [...] those symptoms improved? documented in this encounterOhiohealth Shelby Hospital06-15-2023 Miscellaneous Notes* Telephone Encounter - Angeline Robbins RN - 01/21/2023 9:39 AM EDT Patient's Grand Daughter called and notified that prescription has been sent to pharmacy. Angeline Robbins RN * Telephone Encounter - Carl Encarnacion MD - 01/21/2023 8:57 AM EDT Let grand daughter know antibiotic sent to [facility]. The following approved medication requests have [...] Angeline Robbins RN documented in this encounterOhiohealth Shelby Hospital06-06-2023 History of Present illness Narrative* Barrera Daley APRN.CNP - 01/12/2023 10:20 AM EDT Patient triaged at [facility]. Here today with 12/10 mid back pain after fall few days ago. Patient in wheel chair, not able to walk well d/t pain. I will refer to ER, concerns with age and severity of pain. documented in this encounterOhiohealth Shelby Hospital03-31-2023 Miscellaneous Notes* Telephone Encounter - Juid Estrada - 11/06/2022 9:18 AM EDT Pharmacy verified in [facility] Patient has been identified [...] Judi Plascencia Pss documented in this encounterOhiohealth Shelby Hospital02-02-2023 Miscellaneous Notes* Telephone Encounter - Carl [...] Stephanie Duarte Pss documented in this encounterOhiohealth Shelby Hospital12-12-2022 Miscellaneous Notes* Telephone Encounter - Amanda Kendrick - 07/20/2022 10:38 AM EST Patient given results and verbalized understanding of instructions given. Amanda Kendrick * Telephone Encounter - Barrera Daley APRN.ASSESSMENT TECHNICIAN - 07/20/2022 9:55 AM EST Please notify negative chest xray for pneumonia. Large hiatal hernia noted, no action needed. May stop atb per note. F/u as discussed during visit. documented in this encounterOhiohealth Shelby Hospital12-12-2022 History of Present illness Narrative* Monisha [...] 2022 8:10 AM documented in this encounterOhiohealth Shelby Hospital12-11-2022 History of Present illness Narrative* Isabel [...] Patient agreeable to treatment plan. Isabel Roca APRN.CNP documented in this encounterOhiohealth Shelby Hospital11-21-2022 Miscellaneous Notes* Telephone Encounter - Jeremiah [...] fat in diet. documented in this encounterOhiohealth Shelby Hospital11-18-2022 Instructions* Patient Instructions* Carl Encarnacion MD - 06/26/2022 11:03 AM EST Consider getting the shingrix vaccine for the prevention of shingles from a local pharmacy documented in this encounterOhiohealth Shelby Hospital11-18-2022 History of Present illness Narrative* Carl [...] Abs Lymph 1.00 - 4.00 k/uL 1.67 [place]% % 8.5 Abs [place] <0.87 k/uL 0.42 Eosin% % 2.6 Abs [...] Negative Negative Ketones, Urine Negative Negative Specific [place], Ur 1.005 - 1.030 1.006 Hemoglobin/Blood,Ur Negative [...] QUADRIVALENT HIGH DOSE AGE 65+: Given - [employer] COVID-19 BIVALENT BOOSTER VACCINE, AGE 12+ YR: [...] Carl Encarnacion MD documented in this encounterOhiohealth Shelby Hospital11-02-2022 Miscellaneous Notes* Telephone Encounter - Carl [...] advise. Sherlyn Reza Pss documented in this encounterOhiohealth Shelby Hospital10-28-2022 Miscellaneous Notes* Telephone Encounter - Jeremiah [...] you. Lorena Silver documented in this encounterOhiohealth Shelby Hospital10-17-2022 Miscellaneous Notes* Telephone Encounter - Carl Encarnacion MD - 05/25/2022 1:10 PM EDT Noted. * Telephone Encounter - Tamiko Ramirez LPN - 05/25/2022 12:53 PM EDT Gina from [facility] calling patient refused overnight pulse ox testing, patient said she returned her oxygen supplies and did not need to have done. documented in this encounterOhiohealth Shelby Hospital10-05-2022 Miscellaneous Notes* Telephone Encounter - Jeremiah [...] - 05/13/2022 10:21 AM EDT Gina with [facility] calls to ask if provider wants pulse oximetry testing done on RA or with Oxygen? Noted patient is refusing to do testing and returning device on 05/07/2022 to [employer]. Equipment not returned yet. Gina asking if provider would want them to try and do it without oxygen to make sure her levels are WNL if patient is agreeable. Yancy Wetzel RN documented in this encounterOhio[facility]09-29-2022 Miscellaneous Notes* Telephone Encounter - Lorena Silver - 05/07/2022 2:39 PM EDT Patient is refusing to schedule procedure at this time. She states she is returning her device. * Telephone Encounter - Keily Rico MA - 05/04/2022 5:02 PM EDT Faxed order to [facility] for Oximetry Nocturnal. Keily Rico MA Please schedule patient for Adult Oximetry with ambulation. (See PCP orders) Keily Rico MA * Telephone Encounter - Carl Encarnacion MD - 05/01/2022 6:08 PM EDT Oximetry with ambulation ordered. Please assist patient with getting set up. Nocturnal pulse ox order printed and ready to be faxed to [facility] * Telephone Encounter - Jeremiah Puckett LPN [...] Izzy Duarte LPN documented in this encounterOhio[facility] Hospital08-09-2022 Miscellaneous Notes* Telephone Encounter - Carl [...] Please fax order to [facility]- fax # [phone] documented in this encounterOhiohealth Shelby Hospital08-05-2022 Miscellaneous Notes* Telephone Encounter - Kristen [...] Stephanie Duarte Pss documented in this encounterOhiohealth Shelby Hospital05-09-2022 Miscellaneous Notes* Telephone Encounter - Carl [...] mg a day? documented in this encounterOhiohealth [facility] Hospital05-06-2022 History of Present illness Narrative* Carl [...] at PIP joint COLONOSCOP W/ OR W/O [facility] SPEC 02/14/09 repeat 10 yrs, sigmoid diverticulosis, internal hemorrhoids EGD W/O [facility] SPECIMEN W/BX 02/14/09 hiatal hernia, esophagitis, [...] Carl Encarnacion MD documented in this encounterOhiohealth Shelby Hospital04-22-2022 Miscellaneous Notes* Telephone Encounter - MARI Rowell - 11/28/2021 8:33 AM EDT Last OV on 08/07/2021 Appointment scheduled for 12/12/2021 Please advise. Thank you. * Telephone Encounter - Stefany Guo Pss - 11/28/2021 8:22 AM EDT Patient has been identified by name and date of : Yes Pending Prescriptions Disp Refills LEVOTHYROXINE 88 MCG TABLET 90 tablet 1 Sig: take one tablet by mouth wednesday through wednesday and none on wednesday. NICK: No RX INSTRUCTIONS: Patient aware RX will be sent to pharmacy. No need to notify patient. Stefany Estrada documented in this encounterOhiohealth Shelby Hospital04-11-2022 Miscellaneous Notes* Telephone Encounter - Carl Encarnacion MD - 11/17/2021 1:23 PM EDT No changes in antibiotic needed at this time. * Telephone Encounter - Jeremiah Puckett LPN - 11/17/2021 7:32 AM EDT Received results of urine culture ordered by Rayanne. Peterson is out of the office today. Results forwarded to Dr Encarnacion to review. Results on Dr Encarnacion's desk. Jeremiah Puckett LPN documented in this encounterOhiohealth Shelby Hospital04-08-2022 Miscellaneous Notes* Telephone Encounter - Sruthi [...] can not leave home. Melanie works for [employer] sowould collect urine and process that through [employer]. If willing can order be placed and faxed to Sruthi Pisano Ma * Telephone Encounter - Kristen Eugene PA-C - 11/12/2021 11:58 AM EDT Can they bring her in today to see me at 220 or at [facility] to [facility]? Kristen Eugene PA-C * Telephone Encounter - Gina Curiel LPN - 11/12/2021 11:44 AM EDT Patients granddaughter Melanie daniel, concerned that patient may have another UTI. She has been irritable and confused the last couple of days but worse today. Patient has had frequent UTI's. Asking what PCP/PRESSURE WELDER would recommend. Please advise. documented in this encounterOhiohealth Shelby Hospital11-10-2021 History of Past illness Narrative* Problem Noted Date Resolved Date Acute respiratory failure 06/18/20212021 Pain in joint, pelvic region and thigh 3 11/28/2012 Enthesopathy of hip region 10/27/201211/28 Acute gastritis without mention of hemorrhage 12/07/2014 Iron deficiency anemia, unspecified 02/14/2009 05/10/2018 documented as of this encounter (statuses as of 11/14/2021) [facility] of Past illness Narrative* Problem Noted Date Resolved Date Acute respiratory failure 06/18/20212021 Pain in joint, pelvic region and thigh 3 11/28/2012 Enthesopathy of hip region 10/27/201211/28 Acute gastritis without mention of hemorrhage 12/07/2014 Iron deficiency anemia, unspecified 02/14/2009 05/10/2018 documented as of this encounter (statuses as of 11/17/2021) [facility] of [facility] illness Narrative* Problem Noted Date Resolved Date Acute respiratory failure 06/18/20212021 Pain in joint, pelvic region and thigh 3 11/28/2012 Enthesopathy of hip region 10/27/201211/28 Acute gastritis without mention of hemorrhage 12/07/2014 Iron deficiency anemia, unspecified 02/14/2009 05/10/2018 documented as of this encounter (statuses as of 11/28/2021) [facility] of [facility] Narrative* Problem Noted Date Resolved Date Acute respiratory failure 06/18/20212021 Pain in joint, pelvic region and thigh 3 11/28/2012 Enthesopathy of hip region 10/27/201211/28 Acute gastritis without mention of hemorrhage 12/07/2014 Iron deficiency anemia, unspecified 02/14/2009 05/10/2018 documented as of this encounter (statuses as of 12/13/2021) [facility] Narrative* Problem Noted Date Resolved Date Acute respiratory failure 06/18/20212021 Pain in joint, pelvic region and thigh 3 11/28/2012 Enthesopathy of hip region 10/27/201211/28 Acute gastritis without mention of hemorrhage 12/07/2014 Iron deficiency anemia, unspecified 02/14/2009 05/10/2018 documented as of this encounter (statuses as of 12/15/2021) [facility] Narrative* Problem Noted Date Resolved Date Acute respiratory failure 06/18/20212021 Pain in joint, pelvic region and thigh 3 11/28/2012 Enthesopathy of hip region 10/27/201211/28 Acute gastritis without mention of hemorrhage 12/07/2014 Iron deficiency anemia, unspecified 02/14/2009 05/10/2018 documented as of this encounter (statuses as of 03/13/2022) [facility] Narrative* Problem Noted Date Resolved Date Acute respiratory failure 06/18/20212021 Pain in joint, pelvic region and thigh 3 11/28/2012 Enthesopathy of hip region 10/27/201211/28 Acute gastritis without mention of hemorrhage 12/07/2014 Iron deficiency anemia, unspecified 02/14/2009 05/10/2018 documented as of this encounter (statuses as of 2022) [facility] Narrative* Problem Noted Date Resolved Date Acute respiratory failure 06/18/20212021 Pain in joint, pelvic region and thigh 3 11/28/2012 Enthesopathy of hip region 10/27/201211/28 Acute gastritis without mention of hemorrhage 12/07/2014 Iron deficiency anemia, unspecified 02/14/2009 05/10/2018 documented as of this encounter (statuses as of 05/07/2022) [facility] Narrative* Problem Noted Date Resolved Date Acute respiratory failure 06/18/20212021 Pain in joint, pelvic region and thigh 3 11/28/2012 Enthesopathy of hip region 10/27/201211/28 Acute gastritis without mention of hemorrhage 12/07/2014 Iron deficiency anemia, unspecified 02/14/2009 05/10/2018 documented as of this encounter (statuses as of 05/13/2022) [address]10-2021 History of Past illness Narrative* Problem Noted Date Resolved Date Acute respiratory failure 06/18/20212021 Pain in joint, pelvic region and thigh 3 11/28/2012 Enthesopathy of hip region 10/27/201211/28 Acute gastritis without mention of hemorrhage 12/07/2014 Iron deficiency anemia, unspecified 02/14/2009 05/10/2018 documented as of this encounter (statuses as of 05/25/2022) [facility] Narrative* Problem Noted Date Resolved Date Acute respiratory failure 06/18/20212021 Pain in joint, pelvic region and thigh 3 11/28/2012 Enthesopathy of hip region 10/27/201211/28 Acute gastritis without mention of hemorrhage 12/07/2014 Iron deficiency anemia, unspecified 02/14/2009 05/10/2018 documented as of this encounter (statuses as of 06/05/2022) [address]-2021 History of Past illness Narrative* Problem Noted Date Resolved Date Acute respiratory failure 06/18/20212021 Pain in joint, pelvic region and thigh 3 11/28/2012 Enthesopathy of hip region 10/27/201211/28 Acute gastritis without mention of hemorrhage 12/07/2014 Iron deficiency anemia, unspecified 02/14/2009 05/10/2018 documented as of this encounter (statuses as of 06/10/2022) [facility]arrative* Problem Noted Date Resolved Date Acute respiratory failure 06/18/20212021 Pain in joint, pelvic region and thigh 3 11/28/2012 Enthesopathy of hip region 10/27/201211/28 Acute gastritis without mention of hemorrhage 12/07/2014 Iron deficiency anemia, unspecified 02/14/2009 05/10/2018 documented as of this encounter (statuses as of 06/28/2022) [facility]arrative* Problem Noted Date Resolved Date Acute respiratory failure 06/18/20212021 Pain in joint, pelvic region and thigh 3 11/28/2012 Enthesopathy of hip region 10/27/201211/28 Acute gastritis without mention of hemorrhage 12/07/2014 Iron deficiency anemia, unspecified 02/14/2009 05/10/2018 documented as of this encounter (statuses as of 06/29/2022) [facility]ative* Problem Noted Date Resolved Date Acute respiratory failure 06/18/20212021 Pain in joint, pelvic region and thigh 3 11/28/2012 Enthesopathy of hip region 10/27/201211/28 Acute gastritis without mention of hemorrhage 12/07/2014 Iron deficiency anemia, unspecified 02/14/2009 05/10/2018 documented as of this encounter (statuses as of 07/19/2022) [facility]* Problem Noted Date Resolved Date Acute respiratory failure 06/18/20212021 Pain in joint, pelvic region and thigh 3 11/28/2012 Enthesopathy of hip region 10/27/201211/28 Acute gastritis without mention of hemorrhage 12/07/2014 Iron deficiency anemia, unspecified 02/14/2009 05/10/2018 documented as of this encounter (statuses as of 07/20/2022) [facility]* Problem Noted Date Resolved Date Acute respiratory failure 06/18/20212021 Pain in joint, pelvic region and thigh 3 11/28/2012 Enthesopathy of hip region 10/27/201211/28 Acute gastritis without mention of hemorrhage 12/07/2014 Iron deficiency anemia, unspecified 02/14/2009 05/10/2018 documented as of this encounter (statuses as of 09/10/2022) [facility]* Problem Noted Date Resolved Date Acute respiratory failure 06/18/20212021 Pain in joint, pelvic region and thigh 3 11/28/2012 Enthesopathy of hip region 10/27/201211/28 Acute gastritis without mention of hemorrhage 12/07/2014 Iron deficiency anemia, unspecified 02/14/2009 05/10/2018 documented as of this encounter (statuses as of 11/06/2022) [facility]* Problem Noted Date Resolved Date Acute respiratory failure 06/18/20212021 Pain in joint, pelvic region and thigh 3 11/28/2012 Enthesopathy of hip region 10/27/201211/28 Acute gastritis without mention of hemorrhage 12/07/2014 Iron deficiency anemia, unspecified 02/14/2009 05/10/2018 documented as of this encounter (statuses as of 01/12/2023) [facility]* Problem Noted Date Resolved Date Acute respiratory failure 06/18/20212021 Pain in joint, pelvic region and thigh 3 11/28/2012 Enthesopathy of hip region 10/27/201211/28 Acute gastritis without mention of hemorrhage 12/07/2014 Iron deficiency anemia, unspecified 02/14/2009 05/10/2018 documented as of this encounter (statuses as of 01/21/2023) [facility]* Problem Noted Date Resolved Date Acute respiratory failure 06/18/20212021 Pain in joint, pelvic region and thigh 3 11/28/2012 Enthesopathy of hip region 10/27/201211/28 Acute gastritis without mention of hemorrhage 12/07/2014 Iron deficiency anemia, unspecified 02/14/2009 05/10/2018 documented as of this encounter (statuses as of 01/25/2023) [facility]* Problem Noted Date Resolved Date Acute respiratory failure 06/18/20212021 Pain in joint, pelvic region and thigh 3 11/28/2012 Enthesopathy of hip region 10/27/201211/28 Acute gastritis without mention of hemorrhage 12/07/2014 Iron deficiency anemia, unspecified 02/14/2009 05/10/2018 documented as of this encounter (statuses as of 01/27/2023) [facility]* Problem Noted Date Resolved Date Acute respiratory failure 06/18/20212021 Pain in joint, pelvic region and thigh 3 11/28/2012 Enthesopathy of hip region 10/27/201211/28 Acute gastritis without mention of hemorrhage 12/07/2014 Iron deficiency anemia, unspecified 02/14/2009 05/10/2018 documented as of this encounter (statuses as of 02/02/2023) [facility]* Problem Noted Date Resolved Date Acute respiratory failure 06/18/20212021 Pain in joint, pelvic region and thigh 3 11/28/2012 Enthesopathy of hip region 10/27/201211/28 Acute gastritis without mention of hemorrhage 12/07/2014 Iron deficiency anemia, unspecified 02/14/2009 05/10/2018 documented as of this encounter (statuses as of 02/03/2023) [facility]* Problem Noted Date Resolved Date Acute respiratory failure 06/18/20212021 Pain in joint, pelvic region and thigh 3 11/28/2012 Enthesopathy of hip region 10/27/201211/28 Acute gastritis without mention of hemorrhage 12/07/2014 Iron deficiency anemia, unspecified 02/14/2009 05/10/2018 documented as of this encounter (statuses as of 02/08/2023) [facility]* Problem Noted Date Diagnosed Date Resolved Date Acute respiratory failure 06/18/2021 Pain in joint, pelvic region and thigh 10/27/2012 11/28/2012 Enthesopathy of hip region 10/27/2012 0 11/28/2012 Acute gastritis without mention of hemorrhage 02/15/20 09 12/07/2014 Iron deficiency anemia, unspecified 02/14/2009 05/10/2018 documented as of this encounter (statuses as of 2023) [facility]* Problem Noted Date Diagnosed Date Resolved Date Acute respiratory failure 06/18/2021 Pain in joint, pelvic region and thigh 10/27/2012 11/28/2012 Enthesopathy of hip region 10/27/2012 0 11/28/2012 Acute gastritis without mention of hemorrhage 02/15/20 09 12/07/2014 Iron deficiency anemia, unspecified 02/14/2009 05/10/2018 documented as of this encounter (statuses as of 03/23/2023) [facility]* Problem Noted Date Diagnosed Date Resolved Date Acute respiratory failure 06/18/2021 Pain in joint, pelvic region and thigh 10/27/2012 11/28/2012 Enthesopathy of hip region 10/27/2012 0 11/28/2012 Acute gastritis without mention of hemorrhage 02/15/20 09 12/07/2014 Iron deficiency anemia, unspecified 02/14/2009 05/10/2018 documented as of this encounter (statuses as of 03/23/2023) [facility]* Problem Noted Date Diagnosed Date Resolved Date Acute respiratory failure 06/18/2021 Pain in joint, pelvic region and thigh 10/27/2012 11/28/2012 Enthesopathy of hip region 10/27/2012 0 11/28/2012 Acute gastritis without mention of hemorrhage 02/15/20 09 12/07/2014 Iron deficiency anemia, unspecified 02/14/2009 05/10/2018 documented as of this encounter (statuses as of 03/23/2023) [facility]* Problem Noted Date Diagnosed Date Resolved Date Acute respiratory failure 06/18/2021 Pain in joint, pelvic region and thigh 10/27/2012 11/28/2012 Enthesopathy of hip region 10/27/2012 0 11/28/2012 Acute gastritis without mention of hemorrhage 02/15/20 09 12/07/2014 Iron deficiency anemia, unspecified 02/14/2009 05/10/2018 documented as of this encounter (statuses as of 03/25/2023) [facility]* Problem Noted Date Diagnosed Date Resolved Date Acute respiratory failure 06/18/2021 Pain in joint, pelvic region and thigh 10/27/2012 11/28/2012 Enthesopathy of hip region 10/27/2012 0 11/28/2012 Acute gastritis without mention of hemorrhage 02/15/20 09 12/07/2014 Iron deficiency anemia, unspecified 02/14/2009 05/10/2018 documented as of this encounter (statuses as of 03/29/2023) [facility]* Problem Noted Date Diagnosed Date Resolved Date Acute respiratory failure 06/18/2021 Pain in joint, pelvic region and thigh 10/27/2012 11/28/2012 Enthesopathy of hip region 10/27/2012 0 11/28/2012 Acute gastritis without mention of hemorrhage 02/15/20 09 12/07/2014 Iron deficiency anemia, unspecified 02/14/2009 05/10/2018 documented as of this encounter (statuses as of 04/07/2023) [facility]* Problem Noted Date Diagnosed Date Resolved Date Acute respiratory failure 06/18/2021 Pain in joint, pelvic region and thigh 10/27/2012 11/28/2012 Enthesopathy of hip region 10/27/2012 0 11/28/2012 Acute gastritis without mention of hemorrhage 02/15/20 09 12/07/2014 Iron deficiency anemia, unspecified 02/14/2009 05/10/2018 documented as of this encounter (statuses as of 04/07/2023) [facility]* Problem Noted Date Diagnosed Date Resolved Date Acute respiratory failure 06/18/2021 Pain in joint, pelvic region and thigh 10/27/2012 11/28/2012 Enthesopathy of hip region 10/27/2012 0 11/28/2012 Acute gastritis without mention of hemorrhage 02/15/20 09 12/07/2014 Iron deficiency anemia, unspecified 02/14/2009 05/10/2018 documented as of this encounter (statuses as of 04/12/2023) [facility]* Problem Noted Date Diagnosed Date Resolved Date Acute respiratory failure 06/18/2021 Pain in joint, pelvic region and thigh 10/27/2012 11/28/2012 Enthesopathy of hip region 10/27/2012 0 11/28/2012 Acute gastritis without mention of hemorrhage 02/15/20 09 12/07/2014 Iron deficiency anemia, unspecified 02/14/2009 05/10/2018 documented as of this encounter (statuses as of 04/23/2023) [facility]* Problem Noted Date Diagnosed Date Resolved Date Acute respiratory failure 06/18/2021 Pain in joint, pelvic region and thigh 10/27/2012 11/28/2012 Enthesopathy of hip region 10/27/2012 0 11/28/2012 Acute gastritis without mention of hemorrhage 02/15/20 09 12/07/2014 Iron deficiency anemia, unspecified 02/14/2009 05/10/2018 documented as of this encounter (statuses as of 05/02/2023) [facility]* Problem Noted Date Diagnosed Date Resolved Date Acute respiratory failure 06/18/2021 Pain in joint, pelvic region and thigh 10/27/2012 11/28/2012 Enthesopathy of hip region 10/27/2012 0 11/28/2012 Acute gastritis without mention of hemorrhage 02/15/20 09 12/07/2014 Iron deficiency anemia, unspecified 02/14/2009 05/10/2018 documented as of this encounter (statuses as of 05/04/2023) [facility]* Problem Noted Date Diagnosed Date Resolved Date Acute respiratory failure 06/18/2021 Pain in joint, pelvic region and thigh 10/27/2012 11/28/2012 Enthesopathy of hip region 10/27/2012 0 11/28/2012 Acute gastritis without mention of hemorrhage 02/15/20 09 12/07/2014 Iron deficiency anemia, unspecified 02/14/2009 05/10/2018 documented as of this encounter (statuses as of 05/15/2023) [facility]* Problem Noted Date Diagnosed Date Resolved Date Acute respiratory failure 06/18/2021 Pain in joint, pelvic region and thigh 10/27/2012 11/28/2012 Enthesopathy of hip region 10/27/2012 0 11/28/2012 Acute gastritis without mention of hemorrhage 02/15/20 09 12/07/2014 Iron deficiency anemia, unspecified 02/14/2009 05/10/2018 documented as of this encounter (statuses as of 05/31/2023) [facility]* Problem Noted Date Diagnosed Date Resolved Date Acute respiratory failure 06/18/2021 Pain in joint, pelvic region and thigh 10/27/2012 11/28/2012 Enthesopathy of hip region 10/27/2012 0 11/28/2012 Acute gastritis without mention of hemorrhage 02/15/20 09 12/07/2014 Iron deficiency anemia, unspecified 02/14/2009 05/10/2018 documented as of this encounter (statuses as of 06/03/2023) [facility]* Problem Noted Date Diagnosed Date Resolved Date Acute respiratory failure 06/18/2021 Pain in joint, pelvic region and thigh 10/27/2012 11/28/2012 Enthesopathy of hip region 10/27/2012 0 11/28/2012 Acute gastritis without mention of hemorrhage 02/15/20 09 12/07/2014 Iron deficiency anemia, unspecified 02/14/2009 05/10/2018 documented as of this encounter (statuses as of 06/04/2023) [facility]* Problem Noted Date Diagnosed Date Resolved Date Acute respiratory failure 06/18/2021 Pain in joint, pelvic region and thigh 10/27/2012 11/28/2012 Enthesopathy of hip region 10/27/2012 0 11/28/2012 Acute gastritis without mention of hemorrhage 02/15/20 09 12/07/2014 Iron deficiency anemia, unspecified 02/14/2009 05/10/2018 documented as of this encounter (statuses as of 06/04/2023) [facility]* Problem Noted Date Diagnosed Date Resolved Date Acute respiratory failure 06/18/2021 Pain in joint, pelvic region and thigh 10/27/2012 11/28/2012 Enthesopathy of hip region 10/27/2012 0 11/28/2012 Acute gastritis without mention of hemorrhage 02/15/20 09 12/07/2014 Iron deficiency anemia, unspecified 02/14/2009 05/10/2018 documented as of this encounter (statuses as of 06/08/2023) [facility]* Problem Noted Date Diagnosed Date Resolved Date Acute respiratory failure 06/18/2021 Pain in joint, pelvic region and thigh 10/27/2012 11/28/2012 Enthesopathy of hip region 10/27/2012 0 11/28/2012 Acute gastritis without mention of hemorrhage 02/15/20 09 12/07/2014 Iron deficiency anemia, unspecified 02/14/2009 05/10/2018 documented as of this encounter (statuses as of 06/08/2023) [facility]* Problem Noted Date Diagnosed Date Resolved Date Acute respiratory failure 06/18/2021 Pain in joint, pelvic region and thigh 10/27/2012 11/28/2012 Enthesopathy of hip region 10/27/2012 0 11/28/2012 Acute gastritis without mention of hemorrhage 02/15/20 09 12/07/2014 Iron deficiency anemia, unspecified 02/14/2009 05/10/2018 documented as of this encounter (statuses as of 06/08/2023) [facility]* Problem Noted Date Diagnosed Date Resolved Date Acute respiratory failure 06/18/2021 Pain in joint, pelvic region and thigh 10/27/2012 11/28/2012 Enthesopathy of hip region 10/27/2012 0 11/28/2012 Acute gastritis without mention of hemorrhage 02/15/20 09 12/07/2014 Iron deficiency anemia, unspecified 02/14/2009 05/10/2018 documented as of this encounter (statuses as of 06/11/2023) [facility]* Problem Noted Date Diagnosed Date Resolved Date Acute respiratory failure 06/18/2021 Pain in joint, pelvic region and thigh 10/27/2012 11/28/2012 Enthesopathy of hip region 10/27/2012 0 11/28/2012 Acute gastritis without mention of hemorrhage 02/15/20 09 12/07/2014 Iron deficiency anemia, unspecified 02/14/2009 05/10/2018 documented as of this encounter (statuses as of 06/12/2023) [facility]11-10-2021 History of Past illness Narrative* Problem Noted Date Diagnosed Date Resolved Date Acute respiratory failure 06/18/2021 Pain in joint, pelvic region and thigh 10/27/2012 11/28/2012 Enthesopathy of hip region 10/27/2012 0 11/28/2012 Acute gastritis without mention of hemorrhage 02/15/20 09 12/07/2014 Iron deficiency anemia, unspecified 02/14/2009 05/10/2018 documented as of this encounter (statuses as of 06/13/2023) [facility]11-10-[facility]21 History of Past illness Narrative* Problem Noted Date Diagnosed Date Resolved Date Acute respiratory failure 06/18/2021 Pain in joint, pelvic region and thigh 10/27/2012 11/28/2012 Enthesopathy of hip region 10/27/2012 0 11/28/2012 Acute gastritis without mention of hemorrhage 02/15/20 09 12/07/2014 Iron deficiency anemia, unspecified 02/14/2009 05/10/2018 documented as of this encounter (statuses as of 06/13/2023) [facility]11-10[facility] History of Past illness Narrative* Problem Noted Date Diagnosed Date Resolved Date Acute respiratory failure 06/18/2021 Pain in joint, pelvic region and thigh 10/27/2012 11/28/2012 Enthesopathy of hip region 10/27/2012 0 11/28/2012 Acute gastritis without mention of hemorrhage 02/15/20 09 12/07/2014 Iron deficiency anemia, unspecified 02/14/2009 05/10/2018 documented as of this encounter (statuses as of 06/13/2023) [facility]11-10[facility]21 History of Past illness Narrative* Problem Noted Date Diagnosed Date Resolved Date Acute respiratory failure 06/18/2021 Pain in joint, pelvic region and thigh 10/27/2012 11/28/2012 Enthesopathy of hip region 10/27/2012 0 11/28/2012 Acute gastritis without mention of hemorrhage 02/15/20 09 12/07/2014 Iron deficiency anemia, unspecified 02/14/2009 05/10/2018 documented as of this encounter (statuses as of 06/17/2023) [facility]-10[facility] History of Past illness Narrative* Problem Noted Date Diagnosed Date Resolved Date Acute respiratory failure 06/18/2021 Pain in joint, pelvic region and thigh 10/27/2012 11/28/2012 Enthesopathy of hip region 10/27/2012 0 11/28/2012 Acute gastritis without mention of hemorrhage 02/15/20 09 12/07/2014 Iron deficiency anemia, unspecified 02/14/2009 05/10/2018 documented as of this encounter (statuses as of 07/07/2023) [facility] History of Past illness Narrative* Problem Noted Date Diagnosed Date Resolved Date Acute respiratory failure 06/18/2021 Pain in joint, pelvic region and thigh 10/27/2012 11/28/2012 Enthesopathy of hip region 10/27/2012 0 11/28/2012 Acute gastritis without mention of hemorrhage 02/15/20 09 12/07/2014 Iron deficiency anemia, unspecified 02/14/2009 05/10/2018 documented as of this encounter (statuses as of 07/13/2023) [facility] History of Past illness Narrative* Problem Noted Date Diagnosed Date Resolved Date Acute respiratory failure 06/18/2021 Pain in joint, pelvic region and thigh 10/27/2012 11/28/2012 Enthesopathy of hip region 10/27/2012 0 11/28/2012 Acute gastritis without mention of hemorrhage 02/15/20 09 12/07/2014 Iron deficiency anemia, unspecified 02/14/2009 05/10/2018 documented as of this encounter (statuses as of 07/13/2023) [facility] History of Past illness Narrative* Problem Noted Date Diagnosed Date Resolved Date Acute respiratory failure 06/18/2021 Pain in joint, pelvic region and thigh 10/27/2012 11/28/2012 Enthesopathy of hip region 10/27/2012 0 11/28/2012 Acute gastritis without mention of hemorrhage 02/15/20 09 12/07/2014 Iron deficiency anemia, unspecified 02/14/2009 05/10/2018 documented as of this encounter (statuses as of 07/17/2023) [facility] History of Past illness Narrative* Problem Noted Date Diagnosed Date Resolved Date Acute respiratory failure 06/18/2021 Pain in joint, pelvic region and thigh 10/27/2012 11/28/2012 Enthesopathy of hip region 10/27/2012 0 11/28/2012 Acute gastritis without mention of hemorrhage 02/15/20 09 12/07/2014 Iron deficiency anemia, unspecified 02/14/2009 05/10/2018 documented as of this encounter (statuses as of 07/27/2023) [facility] History of Past illness Narrative* Problem [...] this encounter (statuses as of 10/07/2023) [facility]11-10-[facility]21 History of Past illness Narrative* Problem [...] of this encounter (statuses as of 11/25/2023) [facility] + Plan note Future Appointments Appointment Date:09/16/2023 02:45:00 PM Scheduled Provider: Location:[facility] Appointment Type:[facility] Evaluation note* Diagnosis Frequent UTI- Primary Urinary tract infection, site not specified Confusion Unspecified psychosis [facility] Diagnosis Essential hypertension- Primary Unspecified essential hypertension Mixed hyperlipidemia Acquired hypothyroidism Unspecified hypothyroidism History of pulmonary embolism Personal history of pulmonary embolism Gastroesophageal reflux disease without esophagitis Esophageal reflux Osteoarthritis of multiple joints, unspecified osteoarthritis type Medication management Encounter for long-term (current) use of other medications [facility] Diagnosis Osteoarthritis of multiple joints, unspecified osteoarthritis type [facility] Diagnosis Hypoxia- Primary Hypoxemia [facility] Diagnosis Osteoarthritis of multiple joints, unspecified osteoarthritis type [facility] Diagnosis Essential hypertension- Primary Unspecified essential hypertension Mixed hyperlipidemia Gastroesophageal reflux disease without esophagitis Esophageal reflux Acquired hypothyroidism Unspecified hypothyroidism Aortic stenosis, moderate Aortic valve disorders Osteoarthritis of multiple joints, unspecified osteoarthritis type Encounter for immunization Need for other specified prophylactic vaccination against single bacterial disease Advance directive discussed with patient Other specified counseling documented in this encounter [facility] note* Diagnosis Acute cough- Primary Wheezing [facility] this encounter [facility] Diagnosis Osteoarthritis of multiple joints, unspecified osteoarthritis type documented in this encounter [facility] noteNo assessment information availableWProMedica Memorial Hospital Work Phone: [facility]* Diagnosis Severe back pain- Primary Backache, unspecified Fall, initial encounter documented in this encounter [facility] note* Diagnosis Urinary frequency- Primary documented in this encounter [facility] note* Diagnosis Sciatica, right side- Primary Fall, subsequent encounter documented in this encounter [facility] note* Diagnosis Chronic low back pain with sciatica, sciatica laterality unspecified, unspecified back pain laterality- Primary Compression fracture of T11 vertebra, initial encounter ([facility] documented in this encounter [facility] note* Diagnosis Sciatica, right side- Primary Falls, subsequent encounter documented in this encounter [facility] note* Diagnosis Ovarian mass- Primary Unspecified noninflammatory disorder of ovary, fallopian tube, and broad ligament documented in this encounter [facility] note* Diagnosis Preop examination- Primary Preoperative examination, unspecified Ovarian mass Unspecified noninflammatory disorder of ovary, fallopian tube, and broad ligament Preop examination Preoperative examination, unspecified documented in this encounter [facility] note* Diagnosis Ovarian mass Unspecified noninflammatory disorder of ovary, fallopian tube, and broad ligament Preop examination Preoperative examination, unspecified documented in this encounter [facility] note* Diagnosis Ovarian mass Unspecified noninflammatory disorder of ovary, fallopian tube, and broad ligament Preop examination Preoperative examination, unspecified documented in this encounter [facility] note* Diagnosis Pre-op evaluation- Primary Preoperative examination, unspecified Acquired hypothyroidism Unspecified hypothyroidism Essential hypertension Unspecified essential hypertension Gastroesophageal reflux disease without esophagitis Esophageal reflux History of pulmonary embolism Personal history of pulmonary embolism Aortic stenosis, moderate Aortic valve disorders documented in this encounter [facility] note* Diagnosis 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 Malignant neoplasm of ovary Post-operative state Other postprocedural status [facility] Diagnosis 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, NEC [facility] Diagnosis 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 Malignant neoplasm of ovary [facility]* Diagnosis Encounter for education- Primary Counseling NOS [facility] Diagnosis 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 Malignant neoplasm of ovary [facility] Diagnosis Osteoarthritis of multiple joints, unspecified osteoarthritis type [facility]* Diagnosis 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 Malignant neoplasm of ovary [facility]* Diagnosis Osteoarthritis of multiple joints, unspecified osteoarthritis type [facility]* Diagnosis Pelvic mass Abdominal or pelvic swelling, mass or lump, unspecified site [facility] Diagnosis Sciatica, right side Fall, subsequent encounter [facility]* Diagnosis 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 neoplasm of ovary [facility]* Diagnosis Osteoarthritis of multiple joints, unspecified osteoarthritis type [facility]* Diagnosis 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 neoplasm of ovary [facility] Diagnosis 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 neoplasm of ovary [facility]* Diagnosis Osteoarthritis of multiple joints, unspecified osteoarthritis type [facility]* Diagnosis Onset Date Resolution Status Fall acute Generalized weakness acute Rhabdomyolysis acute Urinary tract infection [facility] Work Phone: Evaluation note* Diagnosis Osteoarthritis of multiple joints, unspecified osteoarthritis type [facility]* Diagnosis Recurrent UTI (urinary tract infection)- Primary Urinary tract infection, site not specified Essential hypertension Unspecified essential hypertension Malignant neoplasm of ovary, unspecified laterality (HCC) Aortic stenosis, moderate Aortic valve disorders [facility]* Diagnosis Recurrent UTI (urinary tract infection)- Primary Urinary tract infection, site not specified documented in this encounter [facility]* Diagnosis Essential hypertension, malignant- Primary documented in this encounter [facility] note* Diagnosis Recurrent UTI (urinary tract infection)- Primary Urinary tract infection, site not specified documented in this encounter [facility] note* Diagnosis Takotsubo cardiomyopathy- Primary Takotsubo syndrome documented in this encounter [facility] note* Diagnosis Acute cough Wheezing Pre-op evaluation- Primary Preoperative examination, unspecified Acquired hypothyroidism Unspecified hypothyroidism Essential hypertension Unspecified essential hypertension Gastroesophageal reflux disease without esophagitis Esophageal reflux History of pulmonary embolism Personal history of pulmonary embolism Aortic stenosis, moderate Aortic valve disorders documented in this encounter [facility] course Narrative No data available for this section [facility] Hospital Discharge instructions No data available for this section [facility] Progress note No data available for this section [facility] Reason for referral (narrative)* Outpatient Procedure (Routine) - Pending Review Specialty Diagnoses / Procedures Referred By Bella cobian Referred To [facility] Diagnoses Hypoxia Procedures OXIMETRY WITH AMBULATION NONINVASIVE EAR/PULSE OXIMETRY MULTIPLE DETER Carl Encarnacion MD [address] [place] [address] Res[facility] [place] [address] [place] [address] Referral ID Status Reason Start Date Expiration Date Visits Requested Visits Authorized [id number] Pending Review Auto-Generat ed Referral 05/01/2022 05/31/2023 1 1 [facility] for referral (narrative)* Diagnostic Procedure Only (Routine) - Closed Specialty Diagnoses / Procedures Referred By Vondaac t Referred To Contact XR IMAGING Diagnoses Sciatica, right side Fall, subsequent encounter Procedures XR LUMBAR GENERAL 3V AP/LAT/L5-S1 RADEX SPINE LUMBOSACRAL 2/3 VIEWS Kristen Eugene PA-C [address] [place] [address] Xr Imaging Referral ID Status Reason Start Date Expiration Date V isits Requested Visits Authorized [id number] Closed Auto-Generate d Referral 01/27/2023 02/26/2024 1 1 * Physical Therapy (Routine) - Authorized Specialty Diagnoses / Procedures Referred By Contac t Referred To Contact [facility] Diagnoses Sciatica, right side Fall, subsequent encounter Procedures CONSULT TO PHYSICAL THERAPY PHYSICAL THERAPY EVALUATION HIGH COMPLEX 45 MINS THERAPEUTIC EXERCISES RE, EA 15 MIN. Kristen Eugene PA-C [address] [place] [address] [facility] [place] [address] [place] [address] Referral ID Status Reason Start Date Expiration Date Visits Requested Visits Authorized [id number] Authorized Auto-Generat ed Referral 08/09/2022 08/08/2023 20 20 [facility] for referral (narrative)* Outpatient Procedure (Urgent) - Authorized Specialty Diagnoses / Procedures Referred By Contac t Referred To Contact [facility] Diagnoses Preop examination Procedures ECHO ECHO TTHRC R-T 2D W/WOM-MODE COMPL SPEC&[place] [address] [place] [address] [address] [place] [address] Referral ID Status Reason Start Date Expiration Date Visits Requested Visits Authorized [id number] Authorized Auto-Generat ed Referral 03/22/2023 03/21/2024 1 1 [facility] for referral (narrative)* Outpatient Procedure (Routine) - Closed Specialty Diagnoses / Procedures Referred By Contac t Referred To Contact [facility] Diagnoses Ovarian mass Preop examination Procedures ECG COMPLETE ECG ROUTINE ECG W/LEAST 12 LDS W/I&R Annmarie Mendoza, ICHTHYOLOGY TEACHER.ASSESSMENT TECHNICIAN [address] [place] [address] [facility] [place] [address] [place] [address] Referral ID Status Reason Start Date Expiration Date V isits Requested Visits Authorized [id number] Closed Auto-Generate d Referral 03/22/2023 03/21/2024 1 1 [facility] for referral (narrative)* Diagnostic Procedure Only (Routine) - Closed Specialty Diagnoses / Procedures Referred By Contac t Referred To Contact XR IMAGING Diagnoses Sciatica, right side Fall, subsequent encounter Procedures XR LUMBAR GENERAL 3V AP/LAT/L5-S1 RADEX SPINE LUMBOSACRAL 2/3 VIEWS Kristen Eugene PA-C [address] [place] [address] [place] [id number] Referral ID Status Reason Start Date Expiration Date V isits Requested Visits Authorized [id number] Closed Auto-Generate d Referral 01/27/2023 02/26/2024 1 1 [facility] for referral (narrative)No reason for referral information availableWProMedica Memorial Hospital Work Phone: Reason for visit Narrative* Outpatient Procedure (Routine) - Closed Specialty Diagnoses / Procedures Referred By Contac t Referred To Contact [facility] Diagnoses Ovarian mass Preop examination Procedures ECG COMPLETE ECG ROUTINE ECG W/LEAST 12 LDS W/I&R Annmarie Mendoza, ASSESSMENT TECHNICIAN [address] [place] [address] [facility] [place] [address] [place] [address] Referral ID Status Reason Start Date Expiration Date V isits Requested Visits Authorized [id number] Closed Auto-Generate d Referral 03/22/2023 03/21/2024 1 1 [facility] for visit Narrative* Diagnostic Procedure Only (Routine) - Closed Specialty Diagnoses / Procedures Referred By Contac t Referred To Contact XR IMAGING Diagnoses Sciatica, right side Fall, subsequent encounter Procedures XR LUMBAR GENERAL 3V AP/LAT/L5-S1 RADEX SPINE LUMBOSACRAL 2/3 VIEWS Kristen Eugene PA-C [address] [place] [address] [place] [id number] Referral ID Status Reason Start Date Expiration Date V isits Requested Visits Authorized [id number] Closed Auto-Generate d Referral 01/27/2023 02/26/2024 1 1 [facility] Chief Complaint and Reason for Visit [...] MONTHLY EXAM August 11, 2024 5: 27pm LONG TERM LAB WORK September 03, 2024 1:00pm MONTHLY EXAM September 12, 2024 8 :04pm LONG TERM LAB WORK September 14, 2024 5:00am LABWORK September 18, 2024 5:00am LABWORK September 25, 2024 7:00am NEW CONCERN September 27, 2024 2:16pm LONG TERM LAB WORK September 27 2:30pm LABWORK October 16, 2024 5:0 0am Chief Complaint Admit Date LABWORK August 07, 2024 5:00am MONTHLY EXAM August 11, 2024 5: 27pm LONG TERM LAB WORK September 03, 2024 1:00pm MONTHLY EXAM September 12, 2024 8 :04pm LONG TERM LAB WORK September 14, 2024 5:00am LABWORK September 18, 2024 5:00am LABWORK September 25, 2024 7:00am NEW CONCERN September 27, 2024 2:16pm LONG TERM LAB WORK September 27 2:30pm LABWORK October 16, 2024 5:0 0am MONTHLY EXAM October 19, 2024 9:2 9am LABWORK October 30, 2024 5:0 0am Chief Complaint Admit Date LABWORK August 07, 2024 5:00am MONTHLY EXAM August 11, 2024 5: 27pm LONG TERM LAB WORK September 03, 2024 1:00pm MONTHLY EXAM September 12, 2024 8 :04pm LONG TERM LAB WORK September 14, 2024 5:00am LABWORK September 18, 2024 5:00am LABWORK September 25, 2024 7:00am NEW CONCERN September 27, 2024 2:16pm LONG TERM LAB WORK September 27 2:30pm LABWORK October 16, 2024 5:0 0am MONTHLY EXAM October 19, 2024 9:2 9am LABWORK October 30, 2024 5:0 0am LONG TERM LAB WORK November 02, 2024 5 :00am Advance Directives No Advanced Directives Records Found Advance Directive Response Recorded Date/ Time Living Will No January 12, 2023 1 0:27am Power of Account Financial Manager No January 12, 2023 10:27am Name of Medical Power of Account Financial Manager ? January 12, 2023 10:26am Advance Directive Response Recorded Date/ Time Living Will No November 23, 2023 8:14am Power of Account Financial Manager No November 22 8:14am Advance Directive Response Recorded Date/ Time Living Will No November 23, 2023 12:55pm Power of Account Financial Manager No November 22 12:55pm Reason for Referral Specialty Diagnoses / Procedures Referred By Bella t Referred To Contact Orthopedics Diagnoses Chronic low back pain with sciatica, sciatica laterality unspecified, unspecified back pain laterality Compression fracture of T11 vertebra, initial encounter (HCC) Procedures CONSULT TO ORTHOPAEDICS OFFICE/OUTPATIENT NEW HIGH MDM 60-74 MINUTES Kristen Eugene PA-C [address] [place] [address] Referral ID Status Reason Start Date Expiration Date Visits Requested Visits Authorized [id number] Pending Review PCP Requested Referral 02/02/2023 02/02/2024 1 1 Specialty Diagnoses / Procedures Referred By Bella t Referred To Contact Pain Management Diagnoses Chronic low back pain with sciatica, sciatica laterality unspecified, unspecified back pain laterality Compression fracture of T11 vertebra, initial encounter (HCC) Procedures CONSULT TO PAIN MGT OFFICE/OUTPATIENT NEW HIGH MDM 60-74 MINUTES Kristen Eugene PA-C [address] [place] [address] Referral ID Status Reason Start Date Expiration Date Visits Requested Visits Authorized [id number] Pending Review PCP Requested Referral 02/02/2023 02/02/2024 1 1 Specialty Diagnoses / Procedures Referred By Contac t Referred To Contact [facility] Diagnoses Sciatica, right side Falls, subsequent encounter Procedures PT REHAB FOLLOW UP ORDER THERAPEUTIC EXERCISES RE, EA 15 MIN. America Camejo, PT [facility] [place] [address] [place] [address] Referral ID Status Reason Start Date Expiration Date Visits Requested Visits Authorized [id number] Pending Review PCP Requested Referral Auto-Generate d Referral 02/02/2023 05/03/2023 1 1 Specialty Diagnoses / Procedures Referred By Contac t Referred To Contact Diagnoses Ovarian mass Procedures CONSULT TO GYNECOLOGIC/ONCOLOGY OFFICE/OUTPATIENT [facility] 60-74 MINUTES Ely Rico MD [address] [place] [address] Referral ID Status Reason Start Date Expiration Date Visits Requested Visits Authorized [id number] Pending Review PCP Requested Referral Auto-Generate d Referral 03/16/2023 03/15/2024 1 1 Specialty Diagnoses / Procedures Referred By Contac t Referred To Contact Diagnoses 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 (HCC) Procedures CONSULT TO HEMATOLOGY/ONCOLOGY OFFICE/OUTPATIENT [facility] 60-74 MINUTES Annmarie Mendoza, ICHTHYOLOGY TEACHER.ASSESSMENT TECHNICIAN [address] [place] [address] Wilmar Forbes DO [address] [facility] [place] [address] Referral ID Status Reason Start Date Expiration Date Visits Requested Visits Authorized [id number] Pending Review PCP Requested Referral 05/03/2023 05/02/2024 1 1 Specialty Diagnoses / Procedures Referred By Contac t Referred To Contact CT IMAGING Diagnoses Pelvic mass Procedures CT ABD/PEL W IVCON CT ABD & PELVIS W/CONTRAST Carl Encarnacion MD [address] [place] [address] Ct Imaging [facility] Referral ID Status Reason Start Date Expiration Date V isits Requested Visits Authorized [id number] Closed Auto-Generate d Referral 02/26/2023 03/27/2024 1 1 Specialty Diagnoses / Procedures Referred By Bella cobian Referred To Contact Diagnoses Osteoarthritis of multiple joints, unspecified osteoarthritis type Kristen Eugene PA-C [address] [place] [address] Referral ID Status Reason Start Date Expiration Date Visits Re quested Visits Authorized [id number] Closed 1 1 Summary Purpose Family History [...] prosecute any alcohol or drug abuse patient.[facility] the event this information is protected by the Federal Confidentiality of Alcohol and Drug Abuse Patient Records regulations: The Federal rules restrict any use of the information to criminally investigate or prosecute any alcohol or drug abuse patient.[facility] Hospital[facility] the event this information is protected by the Federal Confidentiality of Alcohol and Drug Abuse Patient Records regulations: The Federal rules restrict any use of the information to criminally investigate or prosecute any alcohol or drug abuse patient.[facility] HospitalIn the event this information is protected by the Federal Confidentiality of Alcohol and Drug Abuse Patient Records regulations: The Federal rules restrict any use of the information to criminally investigate or prosecute any alcohol or drug abuse patient.[facility] HospitalIn the event this information is protected by the Federal Confidentiality of Alcohol and Drug Abuse Patient Records regulations: The Federal rules restrict any use of the information to criminally investigate or prosecute any alcohol or drug abuse patient.[facility] HospitalIn the event this information is protected by the Federal Confidentiality of Alcohol and Drug Abuse Patient Records regulations: The Federal rules restrict any use of the information to criminally investigate or prosecute any alcohol or drug abuse patient.[facility] HospitalIn the event this information is protected by the Federal Confidentiality of Alcohol and Drug Abuse Patient Records regulations: The Federal rules restrict any use of the information to criminally investigate or prosecute any alcohol or drug abuse patient.[facility] HospitalIn the event this information is protected by the Federal Confidentiality of Alcohol and Drug Abuse Patient Records regulations: The Federal rules restrict any use of the information to criminally investigate or prosecute any alcohol or drug abuse patient.[facility] HospitalIn the event this information is protected by the Federal Confidentiality of Alcohol and Drug Abuse Patient Records regulations: The Federal rules restrict any use of the information to criminally investigate or prosecute any alcohol or drug abuse patient.[facility] HospitalIn the event this information is protected by the Federal Confidentiality of Alcohol and Drug Abuse Patient Records regulations: The Federal rules restrict any use of the information to criminally investigate or prosecute any alcohol or drug abuse patient.[facility] HospitalIn the event this information is protected by the Federal Confidentiality of Alcohol and Drug Abuse Patient Records regulations: The Federal rules restrict any use of the information to criminally investigate or prosecute any alcohol or drug abuse patient.[facility] HospitalIn the event this information is protected by the Federal Confidentiality of Alcohol and Drug Abuse Patient Records regulations: The Federal rules restrict any use of the information to criminally investigate or prosecute any alcohol or drug abuse patient.[facility] HospitalIn the event this information is protected by the Federal Confidentiality of Alcohol and Drug Abuse Patient Records regulations: The Federal rules restrict any use of the information to criminally investigate or prosecute any alcohol or drug abuse patient.[facility] HospitalIn the event this information is protected by the Federal Confidentiality of Alcohol and Drug Abuse Patient Records regulations: The Federal rules restrict any use of the information to criminally investigate or prosecute any alcohol or drug abuse patient.[facility] HospitalIn the event this information is protected by the Federal Confidentiality of Alcohol and Drug Abuse Patient Records regulations: The Federal rules restrict any use of the information to criminally investigate or prosecute any alcohol or drug abuse patient.[facility] HospitalIn the event this information is protected by the Federal Confidentiality of Alcohol and Drug Abuse Patient Records regulations: The Federal rules restrict any use of the information to criminally investigate or prosecute any alcohol or drug abuse patient.[facility] HospitalIn the event this information is protected by the Federal Confidentiality of Alcohol and Drug Abuse Patient Records regulations: The Federal rules restrict any use of the information to criminally investigate or prosecute any alcohol or drug abuse patient.[facility] HospitalIn the event this information is protected by the Federal Confidentiality of Alcohol and Drug Abuse Patient Records regulations: The Federal rules restrict any use of the information to criminally investigate or prosecute any alcohol or drug abuse patient.[facility] HospitalIn the event this information is protected by the Federal Confidentiality of Alcohol and Drug Abuse Patient Records regulations: The Federal rules restrict any use of the information to criminally investigate or prosecute any alcohol or drug abuse patient.[facility] HospitalIn the event this information is protected by the Federal Confidentiality of Alcohol and Drug Abuse Patient Records regulations: The Federal rules restrict any use of the information to criminally investigate or prosecute any alcohol or drug abuse patient.[facility] HospitalIn the event this information is protected by the Federal Confidentiality of Alcohol and Drug Abuse Patient Records regulations: The Federal rules restrict any use of the information to criminally investigate or prosecute any alcohol or drug abuse patient.[facility] HospitalIn the event this information is protected by the Federal Confidentiality of Alcohol and Drug Abuse Patient Records regulations: The Federal rules restrict any use of the information to criminally investigate or prosecute any alcohol or drug abuse patient.[facility] HospitalIn the event this information is protected by the Federal Confidentiality of Alcohol and Drug Abuse Patient Records regulations: The Federal rules restrict any use of the information to criminally investigate or prosecute any alcohol or drug abuse patient.[facility] HospitalIn the event this information is protected by the Federal Confidentiality of Alcohol and Drug Abuse Patient Records regulations: The Federal rules restrict any use of the information to criminally investigate or prosecute any alcohol or drug abuse patient.[facility] HospitalIn the event this information is protected by the Federal Confidentiality of Alcohol and Drug Abuse Patient Records regulations: The Federal rules restrict any use of the information to criminally investigate or prosecute any alcohol or drug abuse patient.[facility] HospitalIn the event this information is protected by the Federal Confidentiality of Alcohol and Drug Abuse Patient Records regulations: The Federal rules restrict any use of the information to criminally investigate or prosecute any alcohol or drug abuse patient.[facility] HospitalIn the event this information is protected by the Federal Confidentiality of Alcohol and Drug Abuse Patient Records regulations: The Federal rules restrict any use of the information to criminally investigate or prosecute any alcohol or drug abuse patient.[facility] HospitalIn the event this information is protected by the Federal Confidentiality of Alcohol and Drug Abuse Patient Records regulations: The Federal rules restrict any use of the information to criminally investigate or prosecute any alcohol or drug abuse patient.[facility] HospitalIn the event this information is protected by the Federal Confidentiality of Alcohol and Drug Abuse Patient Records regulations: The Federal rules restrict any use of the information to criminally investigate or prosecute any alcohol or drug abuse patient.[facility] HospitalIn the event this information is protected by the Federal Confidentiality of Alcohol and Drug Abuse Patient Records regulations: The Federal rules restrict any use of the information to criminally investigate or prosecute any alcohol or drug abuse patient.[facility] HospitalIn the event this information is protected by the Federal Confidentiality of Alcohol and Drug Abuse Patient Records regulations: The Federal rules restrict any use of the information to criminally investigate or prosecute any alcohol or drug abuse patient.[facility] HospitalIn the event this information is protected by the Federal Confidentiality of Alcohol and Drug Abuse Patient Records regulations: The Federal rules restrict any use of the information to criminally investigate or prosecute any alcohol or drug abuse patient.[facility] HospitalIn the event this information is protected by the Federal Confidentiality of Alcohol and Drug Abuse Patient Records regulations: The Federal rules restrict any use of the information to criminally investigate or prosecute any alcohol or drug abuse patient.[facility] HospitalIn the event this information is protected by the Federal Confidentiality of Alcohol and Drug Abuse Patient Records regulations: The Federal rules restrict any use of the information to criminally investigate or prosecute any alcohol or drug abuse patient.[facility] HospitalIn the event this information is protected by the Federal Confidentiality of Alcohol and Drug Abuse Patient Records regulations: The Federal rules restrict any use of the information to criminally investigate or prosecute any alcohol or drug abuse patient.[facility] HospitalIn the event this information is protected by the Federal Confidentiality of Alcohol and Drug Abuse Patient Records regulations: The Federal rules restrict any use of the information to criminally investigate or prosecute any alcohol or drug abuse patient.[facility] HospitalIn the event this information is protected by the Federal Confidentiality of Alcohol and Drug Abuse Patient Records regulations: The Federal rules restrict any use of the information to criminally investigate or prosecute any alcohol or drug abuse patient.[facility] HospitalIn the event this information is protected by the Federal Confidentiality of Alcohol and Drug Abuse Patient Records regulations: The Federal rules restrict any use of the information to criminally investigate or prosecute any alcohol or drug abuse patient.[facility] HospitalIn the event this information is protected by the Federal Confidentiality of Alcohol and Drug Abuse Patient Records regulations: The Federal rules restrict any use of the information to criminally investigate or prosecute any alcohol or drug abuse patient.[facility] HospitalIn the event this information is protected by the Federal Confidentiality of Alcohol and Drug Abuse Patient Records regulations: The Federal rules restrict any use of the information to criminally investigate or prosecute any alcohol or drug abuse patient.[facility] HospitalIn the event this information is protected by the Federal Confidentiality of Alcohol and Drug Abuse Patient Records regulations: The Federal rules restrict any use of the information to criminally investigate or prosecute any alcohol or drug abuse patient.[facility] HospitalIn the event this information is protected by the Federal Confidentiality of Alcohol and Drug Abuse Patient Records regulations: The Federal rules restrict any use of the information to criminally investigate or prosecute any alcohol or drug abuse patient.[facility] HospitalIn the event this information is protected by the Federal Confidentiality of Alcohol and Drug Abuse Patient Records regulations: The Federal rules restrict any use of the information to criminally investigate or prosecute any alcohol or drug abuse patient.[facility] HospitalIn the event this information is protected by the Federal Confidentiality of Alcohol and Drug Abuse Patient Records regulations: The Federal rules restrict any use of the information to criminally investigate or prosecute any alcohol or drug abuse patient.[facility] HospitalIn the event this information is protected by the Federal Confidentiality of Alcohol and Drug Abuse Patient Records regulations: The Federal rules restrict any use of the information to criminally investigate or prosecute any alcohol or drug abuse patient.[facility] HospitalIn the event this information is protected by the Federal Confidentiality of Alcohol and Drug Abuse Patient Records regulations: The Federal rules restrict any use of the information to criminally investigate or prosecute any alcohol or drug abuse patient.[facility] HospitalIn the event this information is protected by the Federal Confidentiality of Alcohol and Drug Abuse Patient Records regulations: The Federal rules restrict any use of the information to criminally investigate or prosecute any alcohol or drug abuse patient.[facility] HospitalIn the event this information is protected by the Federal Confidentiality of Alcohol and Drug Abuse Patient Records regulations: The Federal rules restrict any use of the information to criminally investigate or prosecute any alcohol or drug abuse patient.[facility] HospitalIn the event this information is protected by the Federal Confidentiality of Alcohol and Drug Abuse Patient Records regulations: The Federal rules restrict any use of the information to criminally investigate or prosecute any alcohol or drug abuse patient.[facility] HospitalIn the event this information is protected by the Federal Confidentiality of Alcohol and Drug Abuse Patient Records regulations: The Federal rules restrict any use of the information to criminally investigate or prosecute any alcohol or drug abuse patient.[facility] HospitalIn the event this information is protected by the Federal Confidentiality of Alcohol and Drug Abuse Patient Records regulations: The Federal rules restrict any use of the information to criminally investigate or prosecute any alcohol or drug abuse patient.[facility] HospitalIn the event this information is protected by the Federal Confidentiality of Alcohol and Drug Abuse Patient Records regulations: The Federal rules restrict any use of the information to criminally investigate or prosecute any alcohol or drug abuse patient.[facility] HospitalIn the event this information is protected by the Federal Confidentiality of Alcohol and Drug Abuse Patient Records regulations: The Federal rules restrict any use of the information to criminally investigate or prosecute any alcohol or drug abuse patient.[facility] HospitalIn the event this information is protected by the Federal Confidentiality of Alcohol and Drug Abuse Patient Records regulations: The Federal rules restrict any use of the information to criminally investigate or prosecute any alcohol or drug abuse patient.[facility] HospitalIn the event this information is protected by the Federal Confidentiality of Alcohol and Drug Abuse Patient Records regulations: The Federal rules restrict any use of the information to criminally investigate or prosecute any alcohol or drug abuse patient.[facility] HospitalIn the event this information is protected by the Federal Confidentiality of Alcohol and Drug Abuse Patient Records regulations: The Federal rules restrict any use of the information to criminally investigate or prosecute any alcohol or drug abuse patient.[facility] HospitalIn the event this information is protected by the Federal Confidentiality of Alcohol and Drug Abuse Patient Records regulations: The Federal rules restrict any use of the information to criminally investigate or prosecute any alcohol or drug abuse patient.[facility] HospitalIn the event this information is protected by the Federal Confidentiality of Alcohol and Drug Abuse Patient Records regulations: The Federal rules restrict any use of the information to criminally investigate or prosecute any alcohol or drug abuse patient.[facility] HospitalIn the event this information is protected by the Federal Confidentiality of Alcohol and Drug Abuse Patient Records regulations: The Federal rules restrict any use of the information to criminally investigate or prosecute any alcohol or drug abuse patient.[facility] HospitalIn the event this information is protected by the Federal Confidentiality of Alcohol and Drug Abuse Patient Records regulations: The Federal rules restrict any use of the information to criminally investigate or prosecute any alcohol or drug abuse patient.[facility] HospitalIn the event this information is protected by the Federal Confidentiality of Alcohol and Drug Abuse Patient Records regulations: The Federal rules restrict any use of the information to criminally investigate or prosecute any alcohol or drug abuse patient.[facility] HospitalIn the event this information is protected by the Federal Confidentiality of Alcohol and Drug Abuse Patient Records regulations: The Federal rules restrict any use of the information to criminally investigate or prosecute any alcohol or drug abuse patient.[facility] HospitalIn the event this information is protected by the Federal Confidentiality of Alcohol and Drug Abuse Patient Records regulations: The Federal rules restrict any use of the information to criminally investigate or prosecute any alcohol or drug abuse patient.[facility] HospitalIn the event this information is protected by the Federal Confidentiality of Alcohol and Drug Abuse Patient Records regulations: The Federal rules restrict any use of the information to criminally investigate or prosecute any alcohol or drug abuse patient.[facility] HospitalIn the event this information is protected by the Federal Confidentiality of Alcohol and Drug Abuse Patient Records regulations: The Federal rules restrict any use of the information to criminally investigate or prosecute any alcohol or drug abuse patient.[facility] HospitalIn the event this information is protected by the Federal Confidentiality of Alcohol and Drug Abuse Patient Records regulations: The Federal rules restrict any use of the information to criminally investigate or prosecute any alcohol or drug abuse patient.[facility] HospitalIn the event this information is protected by the Federal Confidentiality of Alcohol and Drug Abuse Patient Records regulations: The Federal rules restrict any use of the information to criminally investigate or prosecute any alcohol or drug abuse patient.[facility] HospitalIn the event this information is protected by the Federal Confidentiality of Alcohol and Drug Abuse Patient Records regulations: The Federal rules restrict any use of the information to criminally investigate or prosecute any alcohol or drug abuse patient.[facility] HospitalIn the event this information is protected by the Federal Confidentiality of Alcohol and Drug Abuse Patient Records regulations: The Federal rules restrict any use of the information to criminally investigate or prosecute any alcohol or drug abuse patient.[facility] HospitalIn the event this information is protected by the Federal Confidentiality of Alcohol and Drug Abuse Patient Records regulations: The Federal rules restrict any use of the information to criminally investigate or prosecute any alcohol or drug abuse patient.[facility] HospitalIn the event this information is protected by the Federal Confidentiality of Alcohol and Drug Abuse Patient Records regulations: The Federal rules restrict any use of the information to criminally investigate or prosecute any alcohol or drug abuse patient.[facility] HospitalIn the event this information is protected by the Federal Confidentiality of Alcohol and Drug Abuse Patient Records regulations: The Federal rules restrict any use of the information to criminally investigate or prosecute any alcohol or drug abuse patient.[facility] HospitalIn the event this information is protected by the Federal Confidentiality of Alcohol and Drug Abuse Patient Records regulations: The Federal rules restrict any use of the information to criminally investigate or prosecute any alcohol or drug abuse patient.[facility] HospitalIn the event this information is protected by the Federal Confidentiality of Alcohol and Drug Abuse Patient Records regulations: The Federal rules restrict any use of the information to criminally investigate or prosecute any alcohol or drug abuse patient.[facility] HospitalIn the event this information is protected by the Federal Confidentiality of Alcohol and Drug Abuse Patient Records regulations: The Federal rules restrict any use of the information to criminally investigate or prosecute any alcohol or drug abuse patient.[facility] HospitalIn the event this information is protected by the Federal Confidentiality of Alcohol and Drug Abuse Patient Records regulations: The Federal rules restrict any use of the information to criminally investigate or prosecute any alcohol or drug abuse patient.[facility] HospitalIn the event this information is protected by the Federal Confidentiality of Alcohol and Drug Abuse Patient Records regulations: The Federal rules restrict any use of the information to criminally investigate or prosecute any alcohol or drug abuse patient.[facility] Reason for Visit (unrecogniz ed section and content) Reason Comments Results Reason Comments urine culture Reason Onset Date Comments Refill Request 11/28/2021 Reason Comments Follow Up Specialty Diagnoses / Procedures Referred By Bella cobian Referred To Contact Family Practice / FAMILY MEDICINE Diagnoses 4 month f/u Procedures 4C EST Kristen Eugene PA-C [address] [place] [address] Carl Encarnacion MD [address] [place] [address] Referral ID Status Reason Start Date Expiration Date V isits Requested Visits Authorized [id number] New Request 12/12/2021 03/12/2022 1 1 Reason [...] EA 15 MIN. Kristen Eugene PA-C [address] [place] [address] [facility] [address] [place] [address] Referral ID Status Reason Start Date Expiration Date Visits Requested Visits Authorized [id number] Authorized Auto-Generat ed Referral 08/09/2022 08/08/2023 20 20 Reason Onset Date Comments Refill Request 02/08/2023 Reason Comments Referral Information Reason Comments Pre op instructions Reason Comments Results Reason Comments Appointment Reason Comments Patient Update Reason Comments Anesthesia Consult Preop evaluation Reason Comments home health calling Reason Comments Post Op Reason Comments Nursing Plan of Care 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 Reason Comments New Patient Specialty Diagnoses / Procedures Referred By Contac t Referred To Contact Diagnoses 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 (HCC) Procedures CONSULT TO HEMATOLOGY/ONCOLOGY OFFICE/OUTPATIENT NEW HIGH MDM 60-74 MINUTES Annmarie Mendoza, ICHTHYOLOGY TEACHER.ASSESSMENT TECHNICIAN [address] [place] [address] Wilmar Forbes, [address] [place] [address] Referral ID Status Reason Start Date Expiration Date Visits Requested Visits Authorized [id number] Pending Review PCP Requested Referral 05/03/2023 05/02/2024 1 1 Reason Comments First Time Treatment Education Carboplat in Reason Comments AVS 06/02/23, CHEMO START Reason Onset Date Comments Refill Request 06/07/2023 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 C1D1 Post Treat ment Call (Carboplatin) Reason Comments Medication Problem Reason Comments Radiology CT Specialty Diagnoses / Procedures Referred By Contac t Referred To Contact CT IMAGING Diagnoses Pelvic mass Procedures CT ABD/PEL W IVCON CT ABD & PELVIS W/CONTRAST Carl Encarnacion MD [address] [place] [address] [place] [address] Referral ID Status Reason Start Date Expiration Date V isits Requested Visits Authorized [id number] Closed Auto-Generate d Referral 02/26/2023 03/27/2024 1 1 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 Toxicity Check (Carboplatin) Reason Comments Established Patient Reason Onset Date Comments Refill Request 10/07/2023 Reason Comments Hospital Admission Reason Onset Date Comments Refill Request 12/06/2023 Reason Comments [facility]-verbal ordes requeted Reason Comments ER F/U Seen 11/22 at [facility] for fall at home and admitted for Rhabdomyolysis Reason Comments Patient Update from PT [facility] Reason Comments Ext / Discharge Summary Reason Onset Date Comments Refill Request 01/04/2024 Reason Comments OT Update Reason Comments Outside Heart Cath Reason Onset Date Comments Refill Request 02/15/2024 Care Teams (unrecognized sec tion and content) Supervisor [employer] Relationship Specialty Start Date End Date Carl Encarnacion MD [address] [place] [address] PCP - General Family Practice 03/12/15 Supervisor [employer] Relationship Specialty Start Date End Date Carl Encarnacion MD [facility] [place] [address] PCP - General Family Practice 03/12/15 Supervisor [employer] Relationship Specialty Start Date End Date Carl Encarnacion MD [address] [place] [address] PCP - General Family Practice 03/12/15 Supervisor [employer] Relationship Specialty Start Date End Date Carl Encarnacion MD [facility] [place] [address] PCP - General Family Practice 03/12/15 Supervisor [employer] Relationship Specialty Start Date End Date Carl Encarnacion MD [facility] [place] [address] PCP - General Family Practice 03/12/15 Supervisor [employer] Relationship Specialty Start Date End Date Carl Encarnacion MD [facility] [place] [address] PCP - General Family Medicine 03/12/15 Supervisor [employer] Relationship Specialty Start Date End Date Carl Encarnacion MD [address] [facility] [place] [address] PCP - General Family Medicine 03/12/15 Supervisor [employer] Relationship Specialty Start Date End Date Carl Encarnacion MD [address] [facility] [place] [address] PCP - General Family Medicine 03/12/15 Supervisor [employer] Relationship Specialty Start Date End Date Carl Encarnacion MD [facility] [place] [address] PCP - General Family Medicine 03/12/15 Supervisor [employer] Relationship Specialty Start Date End Date Carl Encarnacion MD [address] [place] [address], [place] [address] PCP - General Family Medicine 03/12/15 Supervisor [employer] Relationship Specialty Start Date End Date Carl Encarnacion MD [address] [place] [address], [place] [address] PCP - General Family Medicine 03/12/15 Supervisor [employer] Relationship Specialty Start Date End Date Carl Encarnacion MD [facility] [place] [address] PCP - General Family Medicine 03/12/15 Supervisor [employer] Relationship Specialty Start Date End Date Carl Encarnacion MD [facility] [place] [address] PCP - General Family Medicine 03/12/15 Supervisor [employer] Relationship Specialty Start Date End Date Carl Encarnacion MD [address] [place] [address], [place] [address] PCP - General Family Medicine 03/12/15 Supervisor [employer] Relationship Specialty Start Date End Date Carl Encarnacion MD [facility] [place] [address] PCP - General Family Medicine 03/12/15 Team Status: Active Member Role Status Dates Raciel Zuleta Family Provider Active Dr. Carl Encarnacion MD Primary Care Provider Active Team Status: Inactive Member Role Status Dates Dr. Carl Encarnacion MD Primary Care Provider Active Dr. Abdiel Shaikh , DO Emergency Provider Active Supervisor [employer] Relationship Specialty Start Date End Date Carl Encarnacion MD [address] [place] [address] PCP - General Family Medicine 03/12/15 Supervisor [employer] Relationship Specialty Start Date End Date Carl Encarnacion MD [address] [place] [address] PCP - General Family Medicine 03/12/15 Supervisor [employer] Relationship Specialty Start Date End Date Carl Encarnacion MD [address] [place] [address] PCP - General Family Medicine 03/12/15 Supervisor [employer] Relationship Specialty Start Date End Date Carl Encarnacion MD [address] [place] [address] PCP - General Family Medicine 03/12/15 Supervisor [employer] Relationship Specialty Start Date End Date Carl Encarnacion MD [address] [place] [address] PCP - General Family Medicine 03/12/15 Team Status: Inactive Member Role Status Dates Dr. Carl Encarnacion MD Primary Care Provider Active Dr. Abdiel Shaikh , Attending Provider, Emergency P rovider Active Team Status: Inactive Member Role Status Dates Dr. Carl Encarnacion MD Primary Care Provider Active Dr. Carl Hawkins , Attending Provider, Referring P rovider Active Supervisor [employer] Relationship Specialty Start Date End Date Carl Encarnacion MD [address] [place] [address] PCP - General Family Medicine 03/12/15 Supervisor [employer] Relationship Specialty Start Date End Date Carl Encarnacion MD [address] [place] [address] PCP - General Family Medicine 03/12/15 Supervisor [employer] Relationship Specialty Start Date End Date Carl Encarnacion MD [address] [place] [address] PCP - General Family Medicine 03/12/15 Supervisor [employer] Relationship Specialty Start Date End Date Carl Encarnacion MD [address] [place] [address] PCP - General Family Medicine 03/12/15 Supervisor [employer] Relationship Specialty Start Date End Date Carl Encarnacion MD [address] [place] [address] PCP - General Family Medicine 03/12/15 Supervisor [employer] Relationship Specialty Start Date End Date Carl Encarnacion MD [address] [place] [address] PCP - General Family Medicine 03/12/15 Supervisor [employer] Relationship Specialty Start Date End Date Carl Encarnacion MD [address] [place] [address] PCP - General Family Medicine 03/12/15 Supervisor [employer] Relationship Specialty Start Date End Date Carl Encarnacion MD [address] [place] [address] PCP - General Family Medicine 03/12/15 Supervisor [employer] Relationship Specialty Start Date End Date Carl Encarnacion MD [address] [place] [address] PCP - General Family Medicine 03/12/15 Supervisor [employer] Relationship Specialty Start Date End Date Carl Encarnacion MD [address] [place] [address] PCP - General Family Medicine 03/12/15 Supervisor [employer] Relationship Specialty Start Date End Date Carl Encarnacion MD [address] [place] [address] PCP - General Family Medicine 03/12/15 Supervisor [employer] Relationship Specialty Start Date End Date Carl Encarnacion MD [address] [place] [address] PCP - General Family Medicine 03/12/15 Supervisor [employer] Relationship Specialty Start Date End Date Carl Encarnacion MD [address] [place] [address] PCP - General Family Medicine 03/12/15 Supervisor [employer] Relationship Specialty Start Date End Date Carl Encarnacion MD [address] [place] [address] PCP - General Family Medicine 03/12/15 Supervisor [employer] Relationship Specialty Start Date End Date Carl Encarnacion MD [address] [place] [address] PCP - General Family Medicine 03/12/15 Supervisor [employer] Relationship Specialty Start Date End Date Carl Encarnacion MD [address] [place] [address] PCP - General Family Medicine 03/12/15 Korin Mantilla RN Specialty Inspector [employer] 06/07/23 Wilmar Forbes DO [address] [place] [address] Hematology/Oncology 06/07/23 Supervisor [employer] Relationship Specialty Start Date End Date Carl Encarnacion MD [address] [facility] [place] [address] PCP - General Family Medicine 03/12/15 Korin Mantilla RN Specialty Inspector [employer] 06/07/23 Wilmar Forbes DO [address] [place] [address] Hematology/Oncology 06/07/23 Supervisor [employer] Relationship Specialty Start Date End Date Carl Encarnacion MD [address] [facility] [place] [address] PCP - General Family Medicine 03/12/15 Korin Mantilla RN Specialty Inspector [employer] 06/07/23 Wilmar Forbes DO [address] [facility] [place] [place] [address] Hematology/Oncology 06/07/23 Supervisor [employer] Relationship Specialty Start Date End Date Carl Encarnacion MD [address] [facility] [facility] [place] [address] PCP - General Family Medicine 03/12/15 Korin Mantilla RN Specialty Inspector [employer] 06/07/23 Wilmar Forbes DO [address] [place] [address] Hematology/Oncology 06/07/23 Supervisor [employer] Relationship Specialty Start Date End Date Carl Encarnacion MD [address] [facility] [place] [address] PCP - General Family Medicine 03/12/15 Supervisor [employer] Relationship Specialty Start Date End Date Carl Encarnacion MD [address] [place] [address] PCP - General Family Medicine 03/12/15 Supervisor [employer] Relationship Specialty Start Date End Date Carl Encarnacion MD [address] [place] [address] PCP - General Family Medicine 03/12/15 Supervisor [employer] Relationship Specialty Start Date End Date Carl Encarnacion MD [address] [place] [address] PCP - General Family Medicine 03/12/15 Korin Mantilla RN Specialty Inspector [employer] 06/07/23 Wilmar Forbes DO [address] [place] [address] Hematology/Oncology 06/07/23 Supervisor [employer] Relationship Specialty Start Date End Date Carl Encarnacion MD [address] [place] [address] PCP - General Family Medicine 03/12/15 Korin Mantilla RN Specialty Inspector [employer] 06/07/23 Wilmar Forbes DO [address] [place] [address] Hematology/Oncology 06/07/23 Supervisor [employer] Relationship Specialty Start Date End Date Carl Encarnacion MD [address] [place] [address] PCP - General Family Medicine 03/12/15 Korin Mantilla RN Specialty Inspector [employer] 06/07/23 Wilmar Forbes DO [address] [place] [address] Hematology/Oncology 06/07/23 Supervisor [employer] Relationship Specialty Start Date End Date Carl Encarnacion MD [address] [facility] [place] [address] PCP - General Family Medicine 03/12/15 Korin Mantilla RN Specialty Inspector [employer] 06/07/23 Wilmar Forbes DO [address] [place] [address] Hematology/Oncology 06/07/23 Supervisor [employer] Relationship Specialty Start Date End Date Carl Encarnacion MD [address] [facility] [place] [address] PCP - General Family Medicine 03/12/15 Korin Mantilla RN Specialty Inspector [employer] 06/07/23 Wilmar Forbes DO [address] [place] [address] Hematology/Oncology 06/07/23 Team Status: Active Member Role Status Dates Dr. Carl Encarnacion MD Primary Care Provider Active Dr. Smith Ho MD Emergency Provider Active Dr. Kelby Aguilar DO Admit Provider, Attending Provider Active Supervisor [employer] Relationship Specialty Start Date End Date Carl Encarnacion MD [address] [facility] [place] [address] PCP - General Family Medicine 03/12/15 Korin Mantilla RN Specialty Inspector [employer] 06/07/23 Wilmar Forbes DO [address] [facility] [place] [place] [address] Hematology/Oncology 06/07/23 Team Status: Active Member Role [...] , DO Admit Provider, Attending Provider Active Supervisor [employer] Relationship Specialty Start Date End Date Carl Encarnacion MD [address] [facility] [place] [address] PCP - General Family Medicine 03/12/15 Korin Mantilla RN Specialty Inspector [employer] 06/07/23 Wilmar Frobes DO [address] [place] [address] Hematology/Oncology 06/07/23 Supervisor [employer] Relationship Specialty Start Date End Date Carl Encarnacion MD [address] [facility] [place] [address] PCP - General Family Medicine 03/12/15 Korin Mantilla RN Specialty Inspector [employer] 06/07/23 Wilmar Forbes DO [address] [place] [address] Hematology/Oncology 06/07/23 Supervisor [employer] Relationship Specialty Start Date End Date Carl Encarnacion MD [address] [facility] [place] [address] PCP - General Family Medicine 03/12/15 Korin Mantilla RN Specialty Inspector [employer] 06/07/23 Wilmar Forbes DO [address] [place] [address] Hematology/Oncology 06/07/23 Supervisor [employer] Relationship Specialty Start Date End Date Carl Encarnacion MD [address] [place], [place] [address] PCP - General Family Medicine 03/12/15 Korin Mantilla RN Specialty Inspector [employer] 06/07/23 Wilmar Forbes DO [address] [place], [place] [id number] Hematology/Oncology 06/07/23 Supervisor [employer] Relationship Specialty Start Date End Date Carl Encarnacion MD [address] [facility], [place] [address] PCP - General Family Medicine 03/12/15 Team Status: Active Member Role Status Dates Dr. Carl Encarnacion MD Primary Care Provider Active Start: August 07, 2024 Lasha VASQUEZ MD Attending Provider Active Start: August 07, 2024 Team Status: Inactive Member Role Status Dates Dr. Carl Encarnacion MD Primary Care Provider Active Start: August 11, 2024 End: August 11, 2024 Savi Tavares PRESSURE WELDER, PRESSURE WELDER-C Attending Provider Active Start: August 11, 2024 [...] 2024 End: September 27, 2024 Savi Tavares PRESSURE WELDER, PRESSURE WELDER-C Attending Provider Active Start: September 27, 2024 [...] content) DATE CREATED AUTHOR 03/25/2023 [facility] DATE CREATED AUTHOR AUTHOR'S ORGANIZ ATION 01/22/2024 [facility] DATE CREATED AUTHOR AUTHOR'S ORGANIZ ATION 03/27/2024 [facility] DATE CREATED AUTHOR AUTHOR'S ORGANIZ ATION 04/06/2024 Count includes the [facility] ([place]) DATE CREATED AUTHOR AUTHOR'S ORGANIZ ATION 08/21/2024 [facility] DATE CREATED AUTHOR AUTHOR'S ORGANIZ ATION 02/15/2025 [facility] FOR RECORDS PERTAINING TO PATIENTS WHO [...] BE BASED ON THE PRIMARY CLINICAL RECORDS. [facility] [employer] [facility]. provides no warranty or guarantee of the accuracy or completeness of information in this document.
[2025-02-19 09:04] LABS: AST(SGOT) 19 U/L (<=31); Alanine Aminotransfer ALT/SGPT 9 U/L (<=34); Albumin, Serum 3.5 g/dL (3.4-4.8); Alkaline Phosphatase 76 U/L (35-104); Anion Gap 10 (5-15); BUN 13 mg/dL (4-19); BUN/Creat Ratio 19.6 RATIO (10-20); Bilirubin, Direct 0.16 mg/dL (0.00-0.30); Calcium,Total 8.8 mg/dL (7.6-11.0); Carbon Dioxide 24.0 mmol/L (21.0-32.0); Chloride 103 mmol/L (98-108); Globulin 2.6 g/dL (2.2-4.2); Glucose 87 mg/dL (70-99); Potassium 4.4 mmol/L (3.3-5.1)
[2025-02-19 11:59] LABS: Hematocrit 35.7 % (37-47); Hemoglobin 11.4 g/dL (12.0-15.0); Immature Granulocytes Count 0.020 X10^3/uL (0.0-0.0); Mean Corp Hgb Conc 31.9 g/dL (32-36); Mean Corpuscular Volume 103.5 fL (81-99); Mean Platelet Vol. 10.1 fl (6.2-12.0); NRBC Flagged by Analyzer 0 % (0-5); Platelet Count 206 K/mm3 (150-450); RBC Distribution Width CV 14.4 % (11.6-14.6); RBC Distribution Width SD 54.5 fl (35.1-43.9); Red Blood Count 3.45 M/mm3 (4.2-5.4); White Blood Count 3.1 K/mm3 (4.4-11.0)
== END ==
LOC: OLS.WHLEAS 05:00
PROVIDERS: PCP Family Medicine; Visit Provider Internal Medicine
DX: R78.81 Bacteremia (principal); I51.81 Takotsubo syndrome; I25.2 Old myocardial infarction; M62.562 Muscle wasting and atrophy, not elsewhere classified, left lower leg
CPT/HCPCS: 36415; 80053; 82248; 85025

== ENCOUNTER → 2025-03-05 04:00 | Outpatient (REF) | payer MEDICARE, MEDICAID, SELFPAY | LOC: OLS.WHLEAS 04:00 | PROVIDERS: PCP Family Medicine; Referring Provider Internal Medicine; Visit Provider Internal Medicine | DX: I51.81 Takotsubo syndrome (principal); I10 Essential (primary) hypertension; I35.0 Nonrheumatic aortic (valve) stenosis; E78.5 Hyperlipidemia, unspecified; E03.9 Hypothyroidism, unspecified; E88.09 Other disorders of plasma-protein metabolism, not elsewhere classified | CPT/HCPCS: 36415; 84443 ==

== ENCOUNTER → 2025-04-16 05:00 | Outpatient (REF) | payer MEDICARE, MEDICAID, SELFPAY ==
--- OUTSIDE RECORDS SUMMARY | 2025-04-16 04:44 | XMS RPT_ITS | CCD ---
Author Organization [facility] Team Providers Care Crossword Puzzle Maker Name Role Phone Carl Encarnacion MD Primary Care Provider Carl Encarnacion MD Primary Care Provider [phone] Jose Rafael RN, Korin Unavailable Unavailable Wilmar Forbes DO Unavailable JKAE MOREJON, EKATERINA Rhodes Primary Care Physician Dr. Carl Encarnacion Primary Care Provider Dr. Smith Ho Emergency Provider Dr. Kelby Aguilar Admit Provider Dr. Kelby Aguilar Attending Provider [phone] Dr. Kelby Aguilar Other Provider Carl Encarnacion MD Primary Care Provider [phone] DARCI MSN, OFFAL ROLLER, [facility] Primary Care Physici an Carl Encarnacion MD Primary Care Provider [phone] ELIOT CASTILLO Admitting Unavailable CARL ENCARNACION Primary Care Unavailable ELIOT CASTILLO Attending Unavailable CARL ENCARNACION Primary Care Unavailable CARL ENCARNACION Primary Care Unavailable KRISTEN EUGENE Attending Unavailable CARL ENCARNACION Primary Care Unavailable KRISTEN EUGENE Referring Unavailable CARL ENCARNACION Primary Care Unavailable CARL ENCARNACION Referring Unavailable WILMAR FORBES Referring Unavailable WILMAR FORBES Attending Unavailable CARL ENCARNACION Primary Care Unavailable CARL ENCARNACION Primary Care Unavailable CARL ENCARNACION Primary Care Unavailable WILMAR FORBES Referring Unavailable CARL ENCARNACION Primary Care Unavailable WILMAR FORBES Referring Unavailable ALEJANDRA, CARL A Primary Care Unavailable MASCI, WILMAR A Referring Unavailable ALEJANDRA, CARL A Primary Care Unavailable LORENA, KRISTEN Referring Unavailable AMERICA CAMEJO Attending Unavailable ALEJANDRA, CARL A Primary Care Unavailable EUGENE, KRISTEN Referring Unavailable ALEJANDRA, CARL A Primary Care Unavailable PROSPER AMADOR Attending Unavailable ALEJANDRA, CARL A Primary Care Unavailable ALEJANDRA, CARL A Attending Unavailable LORENA, KRISTEN Referring Unavailable ALEJANDRA, CARL A Primary Care Unavailable MASCI, WILMAR A Referring Unavailable ALEJANDRA, CARL A Primary Care Unavailable ALEJANDRA, CARL A Primary Care Unavailable EUGENE, KRISTEN Attending Unavailable ALEJANDRA, CARL A Primary Care Unavailable MASCI, WILMAR A Attending Unavailable ANNMARIE MENDOZA Referring Unavailabl e ALEJANDRA, CARL A Primary Care Unavailable ALEJANDRA, CARL A Referring Unavailable ALEJANDRA, CARL A Primary Care Unavailable SUPPAN, ESTER A Attending Unavailable ALEJANDRA, CARL A Primary Care [...] USMAN Jorge Admitting Unavail able SUPPAN MSN, OFFAL ROLLER, ESTER Primary Care Unav ailable PLUNK DO, ANNELIESE Attending Unavailable AMADEO MOREJON FACP, USMAN Jorge Admitting Unavail able SUPPAN MSN, OFFAL ROLLER, ESTER Primary Care Unav ailable PLUNK , ANNELIESE Attending Unavailable CARL ENCARNACION MD Attending Unavailable SUPPAN MSN, OFFAL ROLLER, ESTER Primary Care Unav ailable PLUNK DOANNELIESE Admitting Unavailable SUPPAN MSN, OFFAL ROLLER, ESTER Primary Care Unav ailable ESTELA VICENTE MD, DR LINDA HONEYCUTT Consulting Unavaildavid PHIPPS MD, DRE Attending Unavailable SANDHYA MOREJON, CANDIDA Consulting Unavailable NUHA MOREJON, DR MARION Consulting Donaldo DANG MD, CIPRIANO Consulting Unavailable ASHOK WALLER MD, DR RAYMUNDO Attending Unav MINISTERIO Lugo MD Primary Care Unavailable ASHOK WALLER MD, DR RAYMUNDO Attending Unav EKATERINA Moreira MD Primary Care Unavailable GLADYS FERNANDEZ-FOOD PREPARER, STEFANO L Admitting Donaldo BEJARANO MSN, OFFAL ROLLER, [facility] Primary Care Unav ailanita CHAIREZ DO, ANNELIESE Attending Unavailable ASHOK WALLER MD, DR RAYMUNDO Attending Osman BEJARANO MSN, OFFAL ROLLER, [facility] Care Osman Encarnacion MD, Dr. Henry Primary Care Provider Lasha Pro MD Attending Provider Yesy Tavares BULL WHEEL WORKER-CSavi Attending Provider Lasha Pro MD Referring Provider Yesy Pro MD, Dr. Colby Attending Provider [phone] Jim Valentin Attending Provider [phone] Alejandra MOREJON, Dr. Henry Primary Care Provider Lasha Pro MD Attending Provider Dr. Lasha Francisco MD Attending Provider [phone] Anusha BULL WHEEL WORKER-CSavi Attending Provider Dr. Carl Encarnacion MD Referring Provider Dr. Ronen Espinoza DO Attending Provider Monica MOREJON, Dr. Young Attending Provider Dr. Carl Encarnacion MD Primary Care Provider Lasha Pro MD Attending Provider Dr. Carl Hunt MD Primary Care Provider Anusha BULL WHEEL WORKER-CSavi Attending Provider Dr. Lasha Pro MD Attending Provider [phone] Jim Valentin Attending Provider Lasha Pro MD Referring Provider Dr. Carl Hunt MD Primary Care Provider Anusha BULL WHEEL WORKER-C, Savi Attending Provider Lasha Walter Attending Carl Mcnamara Primary Care Unavailable Oleghe OLS, Efewongbe Attending [...] e Oleghe OLS, Efewongbe Attending Unavailabl e Oleghe OLS, Efewongbe Attending Unavailabl e Alejandra, Carl Primary Care Unavailable Alejandra, Carl Primary Care Unavailable Oleghe OLS, Efewongbe Attending Unavailabl e Alejandra, Carl Primary Care Unavailable Oleghe OLS, Efewongbe Referring Unavailabl e Oleghe OLS, Efewongbe Attending Unavailabl e Oleghe [...] Primary Care Unavailable Jim Valentin Attending Unavailable Oleghe OLS, Efewongbe Attending Unavailabl e Alejandra, Carl Primary Care Unavailable Alejandra, Carl Primary Care Unavailable Oleghe, Efewongbe Attending Unavailable Jim Valentin Attending Un[facility] Unavailable Ronen Espinoza Attending [facility]available [facility] Referring Unavailable Alejandra, Carl Primary Care Unavailable Hector Anderson Attending Unavailable Alejandra, Carl Primary Care Unavailable Tickton, Savi Attending Unavailable Alejandra, Carl Primary Care Unavailable Alejandra, Carl Primary Care Unavailable Oleghe, Efewongbe Attending Unavailable Oleghe, Efewongbe Attending Unavailable Alejandra, Carl Primary Care Unavailable Tickton, Savi Attending Unavailable Alejandra, Carl Primary Care Unavailable Tickton, Savi Attending Unavailable Alejandra, Carl Primary Care Unavailable Tickton, Savi Attending Unavailable Alejandra, Eldred Primary Care Unavailable Oleghe, Efewongbe Attending Unavailable Alejandra, Eldred Primary Care Unavailable Tickton, Savi Attending Unavailable Alejandra, Eldred Primary Care Unavailable Jim Valentin Attending Un[facility] Unavailable Oleghe, Efewongbe Attending Unavailable [facility] Care Unavailable Tickton, Savi Attending Unavailable Alejandra, Carl Primary Care Unavailable Alejandra, Carl Primary Care Unavailable Tickton, Savi Attending Unavailable [facility] Primary Care Unavailable Oleghe, Efewongbe Attending Unavailable [facility] Primary Care Unavailable Oleghe OLS, Efewongbe Attending Unavailabl e Oleghe OLS, Efewongbe Attending Unavailabl e [facility] Primary Care Unavailable Allergies Allergy Classification Reported Allergen(s) Allergy Type Date of Onset Reaction(s) Facility NITROFURANTOIN, MACROCRYSTALS / Nitrofurantoin, Monohydrate (4 sources) NITROFURANTOIN, MACROCRYSTALS / Nitrofurantoin, Monohydrate; Translations: [nitrofurantoin] Drug Allergy 3 GI Upset, Upset stomach (finding) [facility] Work Phone: (20 sources) NITROFURANTOIN, MACROCRYSTALS / Nitrofurantoin, Monohydrate; Translations: [nitrofurantoin] Drug Allergy 3 GI Upset, Upset stomach (finding) [facility] Work Phone: (7 sources) Ciprofloxacin Drug Allergy 4 nausea and "felt loopy" [facility] (7 sources) Nitrofurantoin Drug Allergy 4 Vomiting [facility] Comment on above: GI upset, nausea, vo miting and diarrhea. (1 source) Ciprofloxacin Drug Allergy 5 [facility]ository (1 source) Nitrofurantoin Drug Allergy 5 [facility] Medications Current Medications Medication [...] {tbl} PO DAILY May 09, 2021 12:00am SUPPLEMENT Comment on above: Take one(1) tablet t wo(2) times daily. carvedilol 3.125 mg oral tablet (12 sources) alpha-Adrenergic Sally, beta-Adrenergic Sally Start: 01-22-20 take 1 tablet by mouth twice daily Carvedilol 3.125 mg Tablet Active 3.125 mg PO TWICE A DAY 60 2 January 22, 2024 12:00am cefTRIAXone 2000 mg injection (1 source) Cephalosporin Antibacterial Start: 02-14-20 cefTRIAXone 2 g injection IV Push (INT), q12h, 0 Refill(s), 76.8 Start Date: 02/14/24 Status: Ordered cephalexin 500 mg oral tablet (15 sources) Cephalosporin Antibacterial Start: 09-01-19 take 1 tablet by mouth twice daily Cephalexin 500 mg tablet Active 500 mg PO TWICE A DAY 10 September 01, 2024 1:00am Start: 11-26-2023 End: [...] Comment on above: Take 1 capsule by [facility] twice daily as needed. 0.4 ml [...] 20 days. furosemide 20 mg oral tablet (20 sources) Loop Diuretic Start: 12-08-2023 take 1 [...] ug PO MOTUWETHFRSA May 09, 2021 12:00am Thyroid Comment on above: take one tablet by m outh wednesday through wednesday and none on wednesday. lovastatin 40 mg oral tablet (20 sources) HMG-CoA Reductase Inhibitor Start: 03-26-2023 take 1 tablet by mouth at bedtime Lovastatin 40 mg tablet Active 40 mg PO AT BEDTIME January 20, 2024 12:00am CHOLESTEROL Start: 12-15-2021 End: 02-08-2023 take 1 tablet [...] 09, 2021 12:00am January 20, 2024 12:56pm CHOLESTEROL Start: 05-09-2021 take 40 mg by mouth [...] Start: 05-09-2021 take 1 tablet by xuan once daily Multivitamin Active 1 TABLET PO DAILY May 09, 2021 12:00am Multivitamin Tablet (7 sources) Start: 05-09-2021 Multivitamin T ablet Active 1 {tbl} PO DAILY May 09, 2021 12:00am SUPPLEMENT Start: 05-09-2021 Multivitamin T ablet Active 1 {tbl} PO DAILY May 09, [...] Comment on above: Take 1 capsule by [facility] twice daily with meals for 7 days. omeprazole 20 mg delayed release oral capsule (20 sources) Proton Pump Inhibitor Start: 07-15-2020 End: 02-08-2023 take 1 capsule by mouth once daily Omeprazole 20 mg Capsule,Delayed Release(Dr/Ec) Active 20 mg PO DAILY May 09, 2021 12:00am GERD Comment on above: Take 1 capsule by [facility] once daily. perflutren lipid microspheres 1.3 [...] Comment on above: [facility] predniSONE 10 mg oral [...] with food. Take 2 tablets by mo [facility] once daily for 5 days. Take 4 [...] (For chemotherapy induced nausea and vomiting). sennosides, residential 8.6 mg oral tablet (1 source) Start: [...] oral tablet (20 sources) Opioid Agonist Start: 03-09-2025 take 1 tablet by mouth every six hours as needed for pain Tramadol 50 mg tablet Active 50 mg PO EVERY 6 HOURS as needed for pain 90 30 0 March 09, 2025 12:00am April 07, 2025 12:00am Start: 09-27-2024 End: 01-19-2025 take 1 tablet by mouth every six hours as needed for pain Tramadol 50 mg tablet Discontinued 50 mg PO .q 6 hours as needed for pain 60 30 0 December 20, 2024 6:44pm January 18, 2025 12:00am January 19, 2025 12:08am Start: 09-27-2024 End: 03-13-2025 take 1 tablet by mouth once daily Tramadol 50 mg tablet Discontinued 50 mg PO daily 90 0 December 14, 2024 10:00am March 13, 2025 10:04am Start: 09-16-2021 End: 09-27-2024 take 1 tablet by mouth twice daily as needed for pain Tramadol 50 mg Tablet Discontinued 50 mg PO TWICE A DAY as needed for Pain Score 1-10 10 0 January 22, 2024 12:00am September 27, 2024 10:14am Start: 05-09-2021 End: 05-17-2021 take 1 tablet by mouth twice daily Tramadol 50 mg tablet Discontinued 50 mg PO TWICE A DAY May 09, 2021 12:00am May 17, 2021 11:49am ARTHRITIS Comment on above: Take 1 tablet by [...] on above: Take 1,000 mcg by mo [facility] once daily. Vitamin D3 (1 source) Start: 03-26-2023 Vitamin D3 qDa y, one tab daily, 0 Refill(s) Start Date: 03/26/23 Status: Ordered Completed/Discontinued Medications Medication Drug Class(es) Dates Sig (Normalized) Sig (Original) acetaminophen 325 mg / HYDROcodone bitartrate 5 mg oral tablet (14 sources) Opioid Agonist Start: 01-12-2023 End: 11-26-2023 Hydrocodone-Acetami nophen 5-325 mg tablet Discontinued 1 {tbl} PO EVERY 6 HOURS NEEDED as needed for Pain 10 3 0 January 12, 2023 November 26, 2023 1:47pm Acute myofascial strain of lumbosacral region Strain of muscle, fascia and tendon of lower back, initial encounter Start: 01-12-2023 End: 11-26-2023 take 1 tablet by mouth every six hours as needed Hydrocodone-Acetaminophen Discontinued 1 TABLET PO EVERY 6 HOURS NEEDED 10 3 January 12, 2023 November 26, 2023 1:47pm Start: [...] 17, 2021 4:47pm June 05, 2021 7:39pm Blood Thinner 2 tabs BID through 05/24/2021, then 1 [...] (Dr/Ec) Active 81 mg PO WITH BREAKFAST 30 2 January 22, 2024 12:00am Comment on above: Take 1 tablet by xuan th once daily. atenolol 25 mg oral tablet (11 sources) beta-Adrenergic Sally Start: 05-09-20 End: 06-05-20 take 1 tablet by mouth once daily Atenolol 25 mg tablet Discontinued 25 mg PO DAILY May 09, 2021 12:00am June 05, 2021 7:39pm HEART baclofen 10 mg oral tablet (3 sources) [...] before surgery cefdinir 300 mg oral capsule (7 sources) Cephalosporin Antibacterial Start: 01-22-20 End: 09-01-19 take 1 capsule by mouth twice daily Cefdinir 300 mg capsule Discontinued 300 mg PO TWICE A DAY January 22, 2024 12:00am September 01, 2024 5:25pm dexamethasone 4 mg oral tablet (20 sources) Corticosteroid Start: 05-17-20 End: 06-05-20 take 6 mg by mouth once daily Dexamethasone 4 mg tablet Discontinued 6 mg PO DAILY May 17, 2021 4:47pm June 05, 2021 7:39pm Inflammation last dose on 05/18/2021 Start: 05-17-2021 End: [...] 7:39pm Glucosamine Hcl-Vitamin D3 1,000-200 mg-unit Tablet (7 sources) Start: 05-09-2021 End: 06-05-2021 Glucosamine Hcl-Vitamin D3 1,000-200 mg-unit Tablet Discontinued 1 {tbl} PO DAILY May 09, 2021 12:00am June 05, 2021 7:39pm JOINTS Start: 05-09-2021 End: 06-05-2021 Glucosamine Hcl-Vitamin D3 1 ,000-200 mg-unit Tablet Discontinued 1 {tbl} PO DAILY [...] 1 tablet by mouth twice daily as ne eded. NIFEdipine (20 sources) Dihydropyridine Calcium Channel Sally [...] 12, 2023 12:00am January 22, 2024 1:28pm BLOOD PRESSURE Start: 05-09-2021 End: 06-05-2021 take 1 tablet by mouth once daily Nifedipine 30 mg tablet extended release 24hr Discontinued 30 mg PO DAILY May 09, 2021 12:00am June 05, 2021 7:39pm HEART Comment on above: Take 1 tablet by [...] 6 hours as needed. polyethylene glycol 3350 [id number] mg powder for oral solution (9 sources) [...] Documented Da te Episodic/Chronic Acute myocardial infarction (9 sources) Myocardial infarction; Translations: [Non-ST elevation (NSTEMI) [...] Fever; Translations: [Fever, unspecified] Onset: 4 Episodic Heart valve disorders (20 sources) Nonrheumatic aortic (valve) stenosis; Translations: [Aortic valve disorders] Onset: 2 12-19-2021 Chronic Hypertension with complications and secondary hypertension (1 source) Hypertensive heart failure; Translations: [Hypertensive heart disease with heart failure] Chronic Malaise and fatigue (20 sources) Asthenia; Translations: [Other malaise] Onset: 4 [...] sources) Takotsubo syndrome; Translations: [Takotsubo syndrome] Onset: 5 Chronic Other connective tissue disease (9 sources) Rhabdomyolysis; Translations: [Rhabdomyolysis] 11-23-2023 Episodic Other [...] [Chronic pain syndrome] Onset: 5 Chronic Other nutritional; endocrine; and metabolic disorders (20 sources) Obese class I; Translations: [Obesity, unspecified] Onset: 3 04-10-2023 Chronic Other nutritional; endocrine; and metabolic disorders (2 sources) Other disorders of plasma-protein metabolism, not elsewhere [...] Spondylosis; intervertebral disc disorders; other back problems (4 sources) Sacroiliac disorder; Translations: [Sacroiliitis, not elsewhere classified] Onset: 5 12-04-2024 Chronic Sprains and strains (11 sources) Lower back injury; Translations: [Strain of muscle, fascia and tendon of lower back, initial encounter] 01-12-2023 Episodic Thyroid disorders (20 sources) Acquired hypothyroidism; Translations: [Hypothyroidism, unspecified] Onset: 5 07-12-2015 Chronic Unclassified (2 sources) Severe aortic valve stenosis 03-26-2023 Unclassified (3 sources) Osteoarthritis of sacroiliac joint Unclassified (6 sources) M46.1 - Sacroiliitis, not elsewhere classified Viral infection (20 sources) COVID-19; Translations: [Pneumonia due to other virus not elsewhere classified] Onset: 1 Resolved: 06-18-2021 Episodic Past or Other Problems Problem [...] bleeding] Onset: 02-14-2009 Resolved: 12-07-2014 12-07-2014 Episodic Genitourinary symptoms and ill-defined conditions (3 sources) Increased frequency of urination; Translations: [Frequency of micturition] Onset: 12-08-2024 Episodic Heart valve disorders (12 sources) Heart murmur; Translations: [Cardiac murmur, unspecified] Onset: 06-18-2021 06-18-2021 Episodic Immunizations and screening for infectious disease (20 sources) Blood group antibody titer - finding; Translations: [Other specified abnormal immunological findings in serum] Onset: 04-02-2023 04-02-2023 Episodic Other aftercare (3 sources) Drug therapy finding; Translations: [Other nursing home (current) drug therapy] Onset: 08-28-2016 05-10-2018 Episodic Other aftercare (20 sources) Patient encounter status; Translations: [Other nursing home (current) drug therapy] Onset: 02-26-2017 09-20-2018 Episodic Other aftercare (1 source) Other nursing home (current) drug therapy; Translations: [Medication management] Onset: [...] hip] Onset: 10-27-2012 Resolved: 11-28-2012 11-28-2012 Episodic Other non-traumatic joint disorders (1 source) Pain in right hip; Translations: [Pain in right hip] Onset: 01-04-2025 Episodic Spondylosis; intervertebral disc disorders; other back problems (20 sources) Acute back pain with sciatica; Translations: [Lumbago with sciatica, right side] Onset: 05-13-2016 08-28-2016 Episodic Urinary tract infections (20 sources) Recurrent urinary tract infection; Translations: [Urinary tract infection, site not specified] Onset: 12-13-2023 Episodic Results Test Name Value Interpretation Reference Range Facility Urine Drug Screen (VISTA)on 04-03-2025 Fentanyl Normal <5 ng/mL [facility] Comment on above: Order Comment: UNK Result Comment: UTO CONFIRMATORY TESTING FOR ALL POSITIVE URINE DRUG SCREEN RESULTS WILL ONLY BE SENT OUT UPON PHYSICIAN ORDER. Mark Pro Urine Drug Screen methods provide only preliminary analytical test results. A more specific alternate chemical method must be used in order to obtain a confirmed analytical result. Gas chromatography/mass spectrometery (GC/MS) is the preferred confirmatory method. Clinical consideration and professional judgement should be applied to any drug of abuse test result, particularly when preliminary positive results are used. Urine TCA testing must be ordered separately. Use test mnemonic: UTCA Performed By: #### L 505.5000 #### [facility] [address] [facility] [id number] AMPHETAMINES Normal <1000 ng/mL [facility] Comment on above: Order Comment: UNK Result Comment: UTO Performed By: #### L [id number] #### [facility] [address] [facility] [id number] BARBITIURATES Normal < 200 ng/mL [facility] Comment on above: Order Comment: UNK Result Comment: UTO Performed By: #### L [id number] #### [facility] [address] [facility] [id number] BENZODIAZIPINE Normal < 200 ng/mL [facility] Comment on above: Order Comment: UNK Result Comment: UTO Performed By: #### L [id number] #### [facility] [address] [place], [address] BUP Ur Drug Scr Normal < 200 ng/mL [facility] Comment on above: Order Comment: UNK Result Comment: UTO Performed By: #### L [id number] #### [facility] [address] [place], [address] COCAINE Normal < 300 ng/mL [facility] Comment on above: Order Comment: UNK Result Comment: UTO Performed By: #### L [id number] #### [facility] [address] [place], [address] METHADONE Normal < 300 ng/mL [facility] Comment on above: Order Comment: UNK Result Comment: UTO Performed By: #### L [id number] #### [facility] [address] [place], [address] OPIATES Normal < 300 ng/mL [facility] Comment on above: Order Comment: UNK Result Comment: UTO Performed By: #### L [id number] #### [facility] [address] [place], [address] OXYCODONE Normal < 100 ng/mL [facility] Comment on above: Order Comment: UNK Result Comment: UTO Performed By: #### L [id number] #### [facility] [address] [place], [address] PCP Normal < 25 ng/mL [facility] Comment on above: Order Comment: UNK Result Comment: UTO Performed By: #### L [id number] #### [facility] [address] [place], [address] THC Normal < 50 ng/mL [facility] Comment on above: Order Comment: UNK Result Comment: UTO Performed By: #### L [id number] #### [facility] [address] [place], [address] TSH DL <= 0.005 mIU/L QnOrde red By: Lasha Pro on 03-05-2025 TSH Qn 0.219 uIU/mL Low 0.300-4.20 0 [facility] Absolute lymphocyte countOrd ered By: Lasha Pro on 02-19-2025 Lymphocytes Auto (Unsp spec) [#/Vol] 0.85 10*3/uL 0.83-4.51 [facility] Absolute neutrophil countOrd ered By: Lasha Pro on 02-19-2025 Neutrophils (Bld) [#/Vol] 1.8 10*3/uL Low 2.0-7.7 [facility] Anion gap in Serum or Plasma Ordered By: Lasha Pro on 02-19-2025 Anion gap [Moles/Vol] 10 mmol/L 5-15 [facility] Automated lymphocyte count a s percentage of total leukocytesOrdered By: Lasha Pro on 02-19-2025 Lymphocytes/100 WBC Auto (Unsp spec) 27.2 % 19-41 [facility] BUN/creatinine ratioOrdered By: Lasha Pro on 02-19-2025 Urea nitrogen/Creatinine [Mass ratio] 19.6 mg/mg 10-20 [facility] Basophil percentageOrdered B y: Lasha Pro on 02-19-2025 Basophils/100 WBC (Bld) 1.3 % High 0-1 [facility] Bilirubin directOrdered By: Lasha Pro on 02-19-2025 Bilirubin.direct [Mass/Vol] 0.16 mg/dL 0.00-0.30 [facility] Bilirubin, totalOrdered By: Lasha Pro on 02-19-2025 Bilirubin [Mass/Vol] 0.39 mg/dL 0.00-1.30 [facility] Carbon dioxide, total [Moles /volume] in Central venous bloodOrdered By: Lasha Pro on 02-19-2025 CO2 [Moles/Vol] 24.0 mmol/L 21.0-32.0 [facility] Chloride assayOrdered By: Brittany Pro on 02-19-2025 Chloride [Moles/Vol] 103 mmol/L 98-108 [facility] Eosinophil percentageOrdered By: Lasha rPo on 02-19-2025 Eosinophils/100 WBC (Bld) 3.5 % 0-5 [facility] Erythrocyte distribution wid th ratioOrdered By: Lasha Pro on 02-19-2025 Erythrocyte distribution width (RBC) [Ratio] 14.4 % 11.6-14.6 [facility] Erythrocyte distribution wid th standard deviationOrdered By: Lasha Pro on 02-19-2025 Erythrocyte distribution width (RBC) [Ratio] 54.5 fl High 35.1-43.9 [facility] Glomerular filtration rate ( GFR) estimation/1.73 sq m using serum, plasma, or whole bOrdered By: Lasha Pro on 02-19-2025 GFR/1.73 sq M.predicted among non-blacks MDRD (S/P/Bld) [Vol rate/Area] 86 mL/min/{1.73_m2} >60 [facility] Comment on above: mL/min/1.73m2 CKD-EP I Creatinine Equation (2020) Hematocrit Auto (Bld) [Volum e fraction]Ordered By: Lasha Pro 02-19-2025 Hematocrit (Bld) [Volume fraction] 35.7 % Low 37-47 [facility] Hemoglobin measurementOrdere d By: Lasha Pro 02-19-2025 Hemoglobin (Bld) [Mass/Vol] 11.4 g/dL Low 12.0-15.0 [facility] Immature granulocytes/100 WB C Auto (Bld)Ordered By: Lasha Pro 02-19-2025 Immature granulocytes/100 WBC (Bld) 0.600 % 0.0-0.9 [facility] Comment on above: IG% - Immature Granu locytes (promyelocytes, myelocytes and metamyelocytes) > 1% indicates that a LEFT SHIFT is Present. Laboratory - Chemistry and C hemistry - challengeOrdered By: Lasha Pro 02-19-2025 AST [Catalytic activity/Vol] 19 U/L <32 [facility] MCV (mean corpuscular volume ) determinationOrdered By: Lasha Pro on 02-19-2025 MCV (RBC) [Entitic vol] 103.5 fL High 81-99 [facility] Mean corpuscular hemoglobin (MCH) determinationOrdered By: Lasha Pro on 02-19-2025 MCH (RBC) [Entitic mass] 33.0 pg High 27.0-32.0 [facility] Mean corpuscular hemoglobin concentration (MCHC) determinationOrdered By: Lasha Pro on 02-19-2025 MCHC (RBC) [Mass/Vol] 31.9 g/dL Low 32-36 [facility] Mean platelet volume determi nationOrdered By: Lasha Pro on 02-19-2025 Platelet mean volume (Bld) [Entitic vol] 10.1 fL 6.2-12.0 [facility] Monocyte percentageOrdered B y: Lasha Pro on 02-19-2025 Monocytes/100 WBC (Bld) 10.9 % High 0-10 [facility] Neutrophil percentageOrdered By: Lasha Pro on 02-19-2025 Neutrophils/100 WBC (Bld) 56.5 % 47-70 [facility] Nucleated red blood cell per centageOrdered By: Lasha Pro on 02-19-2025 Nucleated RBC/100 WBC (Bld) [Ratio] 0 % 0-5 [facility] Platelet countOrdered By: Brittany Pro on 02-19-2025 Platelets (Bld) [#/Vol] 206 10*3/uL 150-450 [facility] Potassium measurement (mass/ volume)Ordered By: Lasha Pro on 02-19-2025 Potassium (Unsp spec) [Mass/Vol] 4.4 mmol/L 3.3-5.1 [facility] RBC Auto (Bld) [#/Vol]Ordere d By: Lasha Pro on 02-19-2025 RBC (Bld) [#/Vol] 3.45 10*6/uL Low 4.2-5.4 [facility] Serum creatinine measurement (mass/volume)Ordered By: Lasha Pro on 02-19-2025 Creatinine [Mass/Vol] 0.65 mg/dL Low 0.70-1.20 [facility] Serum globulin measurementOr dered By: Lasha Pro on 02-19-2025 Globulin (S) [Mass/Vol] 2.6 g/dL 2.2-4.2 [facility] Serum glucose measurement (m ass/volume)Ordered By: Lasha Pro on 02-19-2025 Glucose [Mass/Vol] 87 mg/dL 70-99 [facility] Serum or plasma alanine valdez otransferase (ALT) measurementOrdered By: Lasha Pro on 02-19-2025 ALT [Catalytic activity/Vol] 9 U/L <35 [facility] Serum or plasma albumin nina urement (mass/volume)Ordered By: Lasha Pro on 02-19-2025 Albumin [Mass/Vol] 3.5 g/dL 3.4-4.8 [facility] Serum or plasma albumin/glob ulin mass ratioOrdered By: Lasha Pro 02-19-2025 Albumin/Globulin [Mass ratio] 1.3 {ratio} 0.9-2.4 [facility] Serum or plasma alkaline adelaide sphatase measurementOrdered By: Lasha Pro 02-19-2025 ALP [Catalytic activity/Vol] 76 U/L 35-104 [facility] Serum or plasma calcium nina urement (mass/volume)Ordered By: Lasha Pro 02-19-2025 Calcium [Mass/Vol] 8.8 mg/dL 7.6-11.0 [facility] Serum or plasma urea nitroge n measurement (mass/volume)Ordered By: Lasha Pro 02-19-2025 Urea nitrogen [Mass/Vol] 13 mg/dL 4-19 [facility] Sodium levelOrdered By: Tenzin Pro on 02-19-2025 Sodium [Moles/Vol] 137 mmol/L 133-145 [facility] Total proteinOrdered By: Maikel Pro 02-19-2025 Protein [Mass/Vol] 6.1 g/dL 5.9-8.4 [facility] White blood cell (WBC) count Ordered By: Lasha Pro on 02-19-2025 WBC (Bld) [#/Vol] 3.1 10*3/uL Low 4.4-11.0 [facility] Bilirubin Test strip Ql (U)O rdered By: Lasha Pro on 02-12-2025 Bilirubin Ql (U) Negative Negative [facility] Ketones Test strip Ql (U)Ord ered By: Lasha Pro on 02-12-2025 Ketones Ql (U) 5 mg/dl High Negative [facility] Microscopic analysis of urin e for red blood cells (RBC)Ordered By: Lasha Pro on 02-12-2025 Microscopic analysis of urine for red blood cells (RBC) See comment 0-5 [facility] Comment on above: PRESENT, UNABLE TO Q UANTITATE Mucus LM Ql (Urine sed)Order ed By: Lasha Pro on 02-12-2025 Mucus Ql (Urine sed) 0 SEEN /hpf [facility] Nitrite Test strip Ql (U)Ord ered By: Lasha Pro on 02-12-2025 Nitrite Ql (U) Positive High Negative [facility] Protein Test strip Ql (U)Ord ered By: Lasha Pro on 02-12-2025 Protein Ql (U) 100 mg/dl High Negative [facility] Squamous epithelial cells de tection in urine sediment by light microscopyOrdered By: Lasha Pro on 02-12-2025 Epithelial cells.squamous LM Ql (Urine sed) 0 SEEN /hpf 5-10 [facility] Urine clarityOrdered By: Maikel Pro on 02-12-2025 Clarity (U) Turbid Clear [facility] Urine color determinationOrd ered By: Lasha Pro on 02-12-2025 Color (U) Brown Yellow [facility] Urine cultureOrdered By: Maikel Pro on 02-12-2025 Bacteria identified Cx Nom (U) Proteus mirabilis Abnormal [facility] Urine glucose detectionOrder ed By: Lasha Pro on 02-12-2025 Glucose Ql (U) Normal mg/dl Normal [facility] Urine leukocyte esterase det ection by dipstickOrdered By: Lasha Pro on 02-12-2025 Leukocyte esterase Test strip Ql (U) 500 /ul High Negative [facility] Urine pHOrdered By: Jennie Pro on 02-12-2025 pH (U) 8.0 [pH] 5.0 - 8.0 [facility] Urine sediment bacteria coun t by microscopy (number/high power field)Ordered By: Lasha Pro on 02-12-2025 Bacteria LM.HPF (Urine sed) [#/Area] See comment None Seen [facility] Comment on above: PRESENT, UNABLE TO Q UANTITATE Urine specific gravity measu rementOrdered By: Lasha Pro on 02-12-2025 Specific gravity (U) [Rel density] 1.015 1.002-1.03 0 [facility] Urine urobilinogen measureme ntOrdered By: Lasha Pro on 02-12-2025 Urobilinogen Ql (U) Normal mg/dl Normal [facility] White blood cell countOrdere d By: Lasha Pro on 02-12-2025 White blood cell count >100 SEEN /hpf 0-5 [facility] Comment on above: Microscopic field is filled. Other elements may be obscured. Calculated very low density lipoprotein (VLDL) cholesterol measurementOrdered By: Lasha Pro on 01-22-2025 Calculated very low density lipoprotein (VLDL) cholesterol measurement 25 mg/dL 5-40 [facility] LDL calc ser/plasOrdered By: Lasha Pro on 01-22-2025 Cholesterol in LDL [Mass/Vol] 59 mg/dL [facility] Comment on above: Akvfbmnbwn=288-375 m g/dL & Higher Lueo=003 mg/dL or greater Screening total cholesterol/ high density lipoprotein (HDL) cholesterol ratioOrdered By: Lasha Pro on 01-22-2025 Cholesterol.total/Chol esterol in HDL [Mass ratio] 2.12 {ratio} [facility] Serum or plasma cholesterol in HDL measurement (mass/volume)Ordered By: Lasha Pro on 01-22-2025 Cholesterol in HDL [Mass/Vol] 75 mg/dL >40 [facility] Comment on above: National Cholesterol Education Program (NCEP) guidelines:<40 mg/dL: Low HDL-cholesterol (major risk factor for CHD)>= 60 mg/dL: High HDL-cholesterol (negative risk factor for CHD)HDL-cholesterol is affected by a number of factors, e.g. smoking, exercise, hormones, sex and age. Serum or plasma cholesterol measurement (mass/volume)Ordered By: Lasha Pro on 01-22-2025 Cholesterol [Mass/Vol] 160 mg/dL <201 [facility] Comment on above: Cholesterol level, D esirable <200 mg/dLBorderline high cholesterol 200-239 mg/dLHigh cholesterol >=240 mg/dLRecommendations of the NCEP Adult Treatment Panel for the following risk-cutoff thresholds for the [place]. TSH DL <= 0.005 mIU/L QnOrde red By: Lasha Pro on 01-22-2025 TSH Qn 1.410 uIU/mL 0.300-4.20 0 [facility] Triglycerides measurementOrd ered By: Lasha Pro on 01-22-2025 Triglyceride [Mass/Vol] 127 mg/dL <199 [facility] Comment on above: The drugs N-Acetylcy steine and Metamizole may falsely depress this assay. Normal range: <150 mg/dLBorderline High: 150-199 mg/dLHigh: 200-499 mg/dLVery High: >500 mg/dL Absolute lymphocyte countOrd ered By: Lasha Pro on 01-18-2025 Lymphocytes Auto (Unsp spec) [#/Vol] 1.31 10*3/uL 0.83-4.51 [facility] Absolute neutrophil countOrd ered By: Lasha Pro on 01-18-2025 Neutrophils (Bld) [#/Vol] 3.4 10*3/uL 2.0-7.7 [facility] Anion gap in Serum or Plasma Ordered By: Lasha Pro on 01-18-2025 Anion gap [Moles/Vol] 14 mmol/L 5-15 [facility] Automated lymphocyte count a s percentage of total leukocytesOrdered By: Lasha Pro on 01-18-2025 Lymphocytes/100 WBC Auto (Unsp spec) 25.1 % 19-41 [facility] BUN/creatinine ratioOrdered By: Bertaphilip Singletaryhelenmanjula on 01-18-2025 Urea nitrogen/Creatinine [Mass ratio] 28.4 mg/mg High 10-20 [facility] Basophil percentageOrdered B y: Lasha Hayderyessy on 01-18-2025 Basophils/100 WBC (Bld) 0.8 % 0-1 [facility] Bilirubin, totalOrdered By: cachorrorambophilip Singletaryhelenmanjula on 01-18-2025 Bilirubin [Mass/Vol] 0.68 mg/dL 0.00-1.30 [facility] Carbon dioxide, total [Moles /volume] in Central venous bloodOrdered By: Brittanycachorrokirkwoodphilip Pro on 01-18-2025 CO2 [Moles/Vol] 23.1 mmol/L 21.0-32.0 [facility] Chloride assayOrdered By: Brittany leelaphilip Pro on 01-18-2025 Chloride [Moles/Vol] 101 mmol/L 98-108 [facility] Eosinophil percentageOrdered By: [facility]helenman[facility] on 01-18-2025 Eosinophils/100 WBC (Bld) 1.0 % 0-5 [facility] Erythrocyte distribution wid th ratioOrdered By: Brittanycachorrolesley Hayderhelenmanjula on 01-18-2025 Erythrocyte distribution width (RBC) [Ratio] 13.4 % 11.6-14.6 [facility] Erythrocyte distribution wid th standard deviationOrdered By: Brittanycachorrorambophilip Pro on 01-18-2025 Erythrocyte distribution width (RBC) [Ratio] 51.0 fl High 35.1-43.9 [facility] Glomerular filtration rate ( GFR) estimation/1.73 sq m using serum, plasma, or whole bOrdered By: Brittanycachorrorambophilip Pro on 01-18-2025 GFR/1.73 sq M.predicted among non-blacks MDRD (S/P/Bld) [Vol rate/Area] 65 mL/min/{1.73_m2} >60 [facility] Comment on above: mL/min/1.73m2 CKD-EP I Creatinine Equation (2020) Hematocrit Auto (Bld) [Volum e fraction]Ordered By: Lasha Pro on 01-18-2025 Hematocrit (Bld) [Volume fraction] 41.5 % 37-47 [facility] Hemoglobin measurementOrdere d By: Lasha Pro on 01-18-2025 Hemoglobin (Bld) [Mass/Vol] 13.2 g/dL 12.0-15.0 [facility] Immature granulocytes/100 WB C Auto (Bld)Ordered By: Lasha Pro on 01-18-2025 Immature granulocytes/100 WBC (Bld) 0.200 % 0.0-0.9 [facility] Comment on above: IG% - Immature Granu locytes (promyelocytes, myelocytes and metamyelocytes) > 1% indicates that a LEFT SHIFT is Present. Laboratory - Chemistry and C hemistry - challengeOrdered By: Lasha Pro on 01-18-2025 AST [Catalytic activity/Vol] 22 U/L <32 [facility] Comment on above: Hemolysis present, R esults could be affected. MCV (mean corpuscular volume ) determinationOrdered By: Lasha Pro on 01-18-2025 MCV (RBC) [Entitic vol] 102.5 fL High 81-99 [facility] Mean corpuscular hemoglobin (MCH) determinationOrdered By: Lasha Pro on 01-18-2025 MCH (RBC) [Entitic mass] 32.6 pg High 27.0-32.0 [facility] Mean corpuscular hemoglobin concentration (MCHC) determinationOrdered By: Lasha Pro on 01-18-2025 MCHC (RBC) [Mass/Vol] 31.8 g/dL Low 32-36 [facility] Mean platelet volume determi nationOrdered By: Lasha Pro on 01-18-2025 Platelet mean volume (Bld) [Entitic vol] 10.1 fL 6.2-12.0 [facility] Monocyte percentageOrdered B y: Lasha Pro on 01-18-2025 Monocytes/100 WBC (Bld) 8.0 % 0-10 [facility] Neutrophil percentageOrdered By: Lasha Pro on 01-18-2025 Neutrophils/100 WBC (Bld) 64.9 % 47-70 [facility] Nucleated red blood cell per centageOrdered By: Lasha Pro on 01-18-2025 Nucleated RBC/100 WBC (Bld) [Ratio] 0 % 0-5 [facility] Platelet countOrdered By: Brittany Pro on 01-18-2025 Platelets (Bld) [#/Vol] 212 10*3/uL 150-450 [facility] Potassium measurement (mass/ volume)Ordered By: Lasha Pro on 01-18-2025 Potassium (Unsp spec) [Mass/Vol] 4.7 mmol/L 3.3-5.1 [facility] Comment on above: Hemolysis present, R esults could be affected. RBC Auto (Bld) [#/Vol]Ordere d By: Lasha Pro on 01-18-2025 RBC (Bld) [#/Vol] 4.05 10*6/uL Low 4.2-5.4 [facility] Serum creatinine measurement (mass/volume)Ordered By: Lasha Pro on 01-18-2025 Creatinine [Mass/Vol] 0.87 mg/dL 0.70-1.20 [facility] Serum globulin measurementOr dered By: Lasha Pro on 01-18-2025 Globulin (S) [Mass/Vol] 3.2 g/dL 2.2-4.2 [facility] Serum glucose measurement (m ass/volume)Ordered By: Lasha Pro on 01-18-2025 Glucose [Mass/Vol] 96 mg/dL 70-99 [facility] Serum or plasma alanine valdez otransferase (ALT) measurementOrdered By: Lasha Pro on 01-18-2025 ALT [Catalytic activity/Vol] 13 U/L <35 [facility] Serum or plasma albumin nina urement (mass/volume)Ordered By: Lasha Pro on 01-18-2025 Albumin [Mass/Vol] 4.3 g/dL 3.4-4.8 [facility] Serum or plasma albumin/glob ulin mass ratioOrdered By: Lasha Pro on 01-18-2025 Albumin/Globulin [Mass ratio] 1.4 {ratio} 0.9-2.4 [facility] Serum or plasma alkaline adelaide sphatase measurementOrdered By: Brittanyannmarie Pro on 01-18-2025 ALP [Catalytic activity/Vol] 86 U/L 35-104 [facility] Serum or plasma calcium nina urement (mass/volume)Ordered By: Lasha Pro on 01-18-2025 Calcium [Mass/Vol] 9.5 mg/dL 7.6-11.0 [facility] Serum or plasma urea nitroge n measurement (mass/volume)Ordered By: Lasha Pro on 01-18-2025 Urea nitrogen [Mass/Vol] 25 mg/dL High 4-19 [facility] Sodium levelOrdered By: Tenzin lesley Morteza on 01-18-2025 Sodium [Moles/Vol] 138 mmol/L 133-145 [facility] TSH DL <= 0.005 mIU/L QnOrde red By: Lasha Pro on 01-18-2025 TSH Qn 1.420 uIU/mL 0.300-4.20 0 [facility] Total proteinOrdered By: Maikel beltrephilip Pro on 01-18-2025 Protein [Mass/Vol] 7.5 g/dL 5.9-8.4 [facility] Venous blood ammonia measure mentOrdered By: Lasha Pro on 01-18-2025 Ammonia (P) [Moles/Vol] 26.9 umol/L 11-51 [facility] White blood cell (WBC) count Ordered By: Lasha Pro on 01-18-2025 WBC (Bld) [#/Vol] 5.2 10*3/uL 4.4-11.0 [facility] TSH DL <= 0.005 mIU/L QnOrde red By: Tenzinrambophilip Pro on 12-11-2024 TSH Qn 1.480 uIU/mL 0.300-4.20 0 [facility] Bilirubin Test strip Ql (U)O rdered By: Lasha Pro on 12-05-2024 Bilirubin Ql (U) Negative Negative [facility] Ketones Test strip Ql (U)Ord ered By: Lasha Pro on 12-05-2024 Ketones Ql (U) Negative Negative [facility] Nitrite Test strip Ql (U)Ord ered By: Lasha Pro on 12-05-2024 Nitrite Ql (U) Positive High Negative [facility] Protein Test strip Ql (U)Ord ered By: Lasha Pro on 12-05-2024 Protein Ql (U) 15 mg/dl High Negative [facility] Comment on above: Previous reported re sult: TNP mg/dlEdited by: SONAL on 12/07/24:1631 AMENDED REPORT 12/07/24 1631 PROT DIPSTX previously reported as: Test not performed mg/dl Urine clarityOrdered By: Maikel Pro on 12-05-2024 Clarity (U) Cloudy Clear [facility] Urine color determinationOrd ered By: Lasha Pro on 12-05-2024 Color (U) Straw Yellow [facility] Urine cultureOrdered By: Maikel Pro on 12-05-2024 Bacteria identified Cx Nom (U) ESBL Escherichia coli Abnormal [facility] Urine glucose detectionOrder ed By: Lasha Pro on 12-05-2024 Glucose Ql (U) Normal mg/dl Normal [facility] Urine leukocyte esterase det ection by dipstickOrdered By: Lasha Pro on 12-05-2024 Leukocyte esterase Test strip Ql (U) 500 /ul High Negative [facility] Urine pHOrdered By: Jennie Pro on 12-05-2024 pH (U) 6.0 [pH] 5.0 - 8.0 [facility] Urine specific gravity measu rementOrdered By: Lasha Pro on 12-05-2024 Specific gravity (U) [Rel density] 1.010 1.002-1.03 0 [facility] Urine urobilinogen measureme ntOrdered By: Lasha Pro on 12-05-2024 Urobilinogen Ql (U) Normal mg/dl Normal [facility] HIP, UNI W/ Pelvis 2-3 Views on 12-04-2024 HIP, UNI W/ Pelvis 2-3 Views [facility] Imaging Services [address] [place], [place] [id number] HIP, UNI W/ Pelvis 2-3 Views MR#: [id number] Acct: [id number] Name: STEFANO WASHINGTON Rep #: [id number] : 1940 F 84 From: Cheryl Davies PCP: Dr. Carl Encarnacion MD Status: DEP AMB Study: HIP, UNI W/ Pelvis 2-3 Views Date of Exam: Exam# [id number] Ordering Dr: Ronen Espinoza DO PROCEDURE: HIP, [...] Mild arthritic changes are seen. Reading Location: [id number] CC: Dr. Carl Encarnacion MD; Dr. 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 Ronen winston DO Age/Sex: 84/F Location: [facility] Status: Signed Intake Vital Signs 03/14/24 14:51 [...] stenosis UTI (urinary tract infection) Non-ST elevation PA (NSTEMI) Hypertension Chronic pain Rheumatoid arthritis Former [...] help with the flare. Patient is at [facility], they will fill that prescription for the Medrol Dosepak as directed (more content not included)... Normal [facility] Vitamin B12 ser/plasOrdered By: Lasha Pro on 11-02-2024 Cobalamin (Vitamin B12) [Mass/Vol] 412 pg/mL 180-914 [facility] Calculated very low density lipoprotein (VLDL) cholesterol measurementOrdered By: Lasha Pro on 10-30-2024 Calculated very low density lipoprotein (VLDL) cholesterol measurement 23 mg/dL 5-40 [facility] VLDL Cholesterol 23 mg/dL 5-40 [facility] LDL calc ser/plasOrdered By: Lasha Pro on 10-30-2024 Cholesterol in LDL [Mass/Vol] 47 mg/dL [facility] Comment on above: Aylbrerzov=181-977 m g/dL & Higher Nrwt=805 mg/dL or greater LDL Cholesterol, Calculated 47 mg/dL [facility] Comment on above: Bheanilwue=215-726 m g/dL & Higher Qcvc=220 mg/dL or greater Screening total cholesterol/ high density lipoprotein (HDL) cholesterol ratioOrdered By: Lasha Pro on 10-30-2024 Cholesterol.total/Chol esterol in HDL [Mass ratio] 2.22 {ratio} [facility] Serum or plasma cholesterol in HDL measurement (mass/volume)Ordered By: Lasha Pro on 10-30-2024 Cholesterol in HDL [Mass/Vol] 58 mg/dL >40 [facility] Comment on above: National Cholesterol Education Program (NCEP) guidelines:<40 mg/dL: Low HDL-cholesterol (major risk factor for CHD)>= 60 mg/dL: High HDL-cholesterol (negative risk factor for CHD)HDL-cholesterol is affected by a number of factors, e.g. smoking, exercise, hormones, sex and age. Serum or plasma cholesterol measurement (mass/volume)Ordered By: Lasha Pro on 10-30-2024 Cholesterol [Mass/Vol] 129 mg/dL <201 [facility] Comment on above: Cholesterol level, D esirable <200 mg/dLBorderline high cholesterol 200-239 mg/dLHigh cholesterol >=240 mg/dLRecommendations of the NCEP Adult Treatment Panel for the following risk-cutoff thresholds for the [place]. TSH DL <= 0.005 mIU/L QnOrde red By: Lasha Pro on 10-30-2024 Thyroid Stimulating Hormone (TSH) 0.870 uIU/mL 0.300-4.20 0 [facility] TSH Qn 0.870 uIU/mL 0.300-4.20 0 [facility] Triglycerides measurementOrd ered By: Lasha Pro on 10-30-2024 Triglyceride [Mass/Vol] 117 mg/dL <199 [facility] Comment on above: The drugs N-Acetylcy steine and Metamizole may falsely depress this assay. Normal range: <150 mg/dLBorderline High: 150-199 mg/dLHigh: 200-499 mg/dLVery High: >500 mg/dL Absolute neutrophil countOrd ered By: Lasha Pro on 10-16-2024 Neutrophils (Bld) [#/Vol] 1.4 10*3/uL Low 2.0-7.7 [facility] Anion gap in Serum or Plasma Ordered By: Lasha Pro on 10-16-2024 Anion gap [Moles/Vol] 13 mmol/L 5-15 [facility] BUN/creatinine ratioOrdered By: Lasha Pro on 10-16-2024 Urea nitrogen/Creatinine [Mass ratio] 22.3 mg/mg High 10-20 [facility] Basophil percentageOrdered B y: Lasha Pro on 10-16-2024 Basophils/100 WBC (Bld) 1.7 % High 0-1 [facility] Bilirubin directOrdered By: Lasha Pro on 10-16-2024 Bilirubin.direct [Mass/Vol] 0.20 mg/dL 0.00-0.30 [facility] Bilirubin, totalOrdered By: Lasha Pro on 10-16-2024 Bilirubin [Mass/Vol] 0.34 mg/dL 0.00-1.30 [facility] Carbon dioxide, total [Moles /volume] in Central venous bloodOrdered By: Lasha Pro on 10-16-2024 CO2 [Moles/Vol] 22.7 mmol/L 21.0-32.0 [facility] Chloride assayOrdered By: Brittany Pro on 10-16-2024 Chloride [Moles/Vol] 107 mmol/L 98-108 [facility] Eosinophil percentageOrdered By: Lasha Pro on 10-16-2024 Eosinophils/100 WBC (Bld) 5.0 % 0-5 [facility] Erythrocyte distribution wid th (RBC) [Ratio]Ordered By: Lasha Pro on 10-16-2024 Erythrocyte distribution width (RBC) [Entitic vol] 52.4 fL High 35.1-43.9 [facility] Erythrocyte distribution wid th ratioOrdered By: Lasha Pro on 10-16-2024 Erythrocyte distribution width (RBC) [Ratio] 13.8 % 11.6-14.6 [facility] GFR/1.73 sq M.predicted gianna g non-blacks MDRD (S/P/Bld) [Vol rate/Area]Ordered By: Lasha Pro on 10-16-2024 Estimated GFR (MDRD) Non-Af Amer 84 >60 [facility] Comment on above: mL/min/1.73m2 CKD-EP I Creatinine Equation (2020) Hematocrit Auto (Bld) [Volum e fraction]Ordered By: Lasha Pro on 10-16-2024 Hematocrit (Bld) [Volume fraction] 34.4 % Low 37-47 [facility] Hemoglobin measurementOrdere d By: Lasha Pro on 10-16-2024 Hemoglobin (Bld) [Mass/Vol] 10.8 g/dL Low 12.0-15.0 [facility] Immature granulocytes/100 WB C Auto (Bld)Ordered By: Lasha Pro on 10-16-2024 Immature granulocytes/100 WBC (Bld) 0.300 % 0.0-0.9 [facility] Comment on above: IG% - Immature Granu locytes (promyelocytes, myelocytes and metamyelocytes) > 1% indicates that a LEFT SHIFT is Present. Laboratory - Chemistry and C hemistry - challengeOrdered By: Lasha Pro on 10-16-2024 AST [Catalytic activity/Vol] 17 U/L <32 [facility] Lymphocytes Auto (Unsp spec) [#/Vol]Ordered By: [facility] on 10-16-2024 Lymphocytes (Bld) [#/Vol] 1.11 10*3/uL 0.83-4.51 [facility] Lymphocytes/100 WBC Auto (Un sp spec)Ordered By: Lasha Singletaryhelenmanjula on 10-16-2024 Lymphocytes/100 WBC (Bld) 36.6 % 19-41 [facility] MCV (mean corpuscular volume ) determinationOrdered By: Lasha Pro on 10-16-2024 MCV (RBC) [Entitic vol] 102.7 fL High 81-99 [facility] Mean corpuscular hemoglobin (MCH) determinationOrdered By: [facility] on 10-16-2024 MCH (RBC) [Entitic mass] 32.2 pg High 27.0-32.0 [facility] Mean corpuscular hemoglobin concentration (MCHC) determinationOrdered By: [facility] Haydermanjula on 10-16-2024 MCHC (RBC) [Mass/Vol] 31.4 g/dL Low 32-36 [facility] Mean platelet volume determi nationOrdered By: [facility] on 10-16-2024 Platelet mean volume (Bld) [Entitic vol] 10.3 fL 6.2-12.0 [facility] Monocyte percentageOrdered B y: Lasha Pro on 10-16-2024 Monocytes/100 WBC (Bld) 11.9 % High 0-10 [facility] Neutrophil percentageOrdered By: cachorrokirkwoodphilip Pro on 10-16-2024 Neutrophils/100 WBC (Bld) 44.5 % Low 47-70 [facility] Nucleated red blood cell per centageOrdered By: Lasha Pro on 10-16-2024 Nucleated RBC/100 WBC (Bld) [Ratio] 0 % 0-5 [facility] Platelet countOrdered By: Brittany Pro on 10-16-2024 Platelets (Bld) [#/Vol] 162 10*3/uL 150-450 [facility] Potassium (Unsp spec) [Mass/ Vol]Ordered By: Lasha Pro on 10-16-2024 Potassium [Moles/Vol] 3.9 mmol/L 3.3-5.1 [facility] RBC Auto (Bld) [#/Vol]Ordere d By: Lasha Pro on 10-16-2024 RBC (Bld) [#/Vol] 3.35 10*6/uL Low 4.2-5.4 [facility] Serum creatinine measurement (mass/volume)Ordered By: Lasha Pro on 10-16-2024 Creatinine [Mass/Vol] 0.70 mg/dL 0.70-1.20 [facility] Serum globulin measurementOr dered By: Lasha Pro on 10-16-2024 Globulin (S) [Mass/Vol] 2.9 g/dL 2.2-4.2 [facility] Serum glucose measurement (m ass/volume)Ordered By: Lasha Pro on 10-16-2024 Glucose [Mass/Vol] 83 mg/dL 70-99 [facility] Serum or plasma alanine valdez otransferase (ALT) measurementOrdered By: Lasha Pro on 10-16-2024 ALT [Catalytic activity/Vol] 6 U/L <35 [facility] Serum or plasma albumin nina urement (mass/volume)Ordered By: Lasha Pro on 10-16-2024 Albumin [Mass/Vol] 3.6 g/dL 3.4-4.8 [facility] Serum or plasma albumin/glob ulin mass ratioOrdered By: Lasha Pro on 10-16-2024 Albumin/Globulin [Mass ratio] 1.2 {ratio} 0.9-2.4 [facility] Serum or plasma alkaline adelaide sphatase measurementOrdered By: Lasha Pro on 10-16-2024 ALP [Catalytic activity/Vol] 64 U/L 35-104 [facility] Serum or plasma calcium nina urement (mass/volume)Ordered By: Lasha Pro on 10-16-2024 Calcium [Mass/Vol] 8.9 mg/dL 7.6-11.0 [facility] Serum or plasma urea nitroge n measurement (mass/volume)Ordered By: Lasha Pro on 10-16-2024 Urea nitrogen [Mass/Vol] 16 mg/dL 4-19 [facility] Serum phosphorus measurement Ordered By: Lasha Pro on 10-16-2024 Phosphorus Level 3.2 mg/dL 2.7-4.5 [facility] Sodium levelOrdered By: Tenzin alstonjocelyne Morteza on 10-16-2024 Sodium [Moles/Vol] 142 mmol/L 133-145 [facility] Total proteinOrdered By: Maikel Pro on 10-16-2024 Protein [Mass/Vol] 6.5 g/dL 5.9-8.4 [facility] White blood cell (WBC) count Ordered By: Lasha Pro on 10-16-2024 WBC (Bld) [#/Vol] 3.0 10*3/uL Low 4.4-11.0 [facility] Bilirubin Test strip Ql (U)O rdered By: Savi Tavares on 09-27-2024 Bilirubin Ql (U) Negative Negative [facility] Glucose Ql (U)Ordered By: Angel Tavares on 09-27-2024 Urine Glucose (UA) Normal mg/dl Normal [facility] Ketones Test strip Ql (U)Ord ered By: Savi Tavares on 09-27-2024 Ketones Ql (U) Negative Negative [facility] Nitrite Test strip Ql (U)Ord ered By: Savi Tavares on 09-27-2024 Nitrite Ql (U) Negative Negative [facility] Protein Test strip Ql (U)Ord ered By: Savi Tavares on 09-27-2024 Protein Ql (U) 30 mg/dl High Negative [facility] Urine blood detectionOrdered By: Savi Tavares on 09-27-2024 Urine Occult Blood 25 /ul High Negative [facility] Urine clarityOrdered By: Raheem Tavares on 09-27-2024 Clarity (U) Sl. Cloudy Clear [facility] Urine color determinationOrd ered By: Savi Tavares on 09-27-2024 Color (U) Yellow Yellow [facility] Urine cultureOrdered By: Maikel Pro on 09-27-2024 Bacteria identified Cx Nom (U) Culture exhibits no growth. [facility] Urine leukocyte esterase det ection by dipstickOrdered By: Savi Tavares on 09-27-2024 Leukocyte esterase Test strip Ql (U) 500 /ul High Negative [facility] Urine pHOrdered By: Savi Tavares on 09-27-2024 pH (U) 6.0 [pH] 5.0 - 8.0 [facility] Urine specific gravity measu rementOrdered By: Savi Tavares on 09-27-2024 Specific gravity (U) [Rel density] 1.010 1.002-1.03 0 [facility] Urobilinogen Ql (U)Ordered B y: Savi Tavares on 09-27-2024 Urine Urobilinogen Normal mg/dl Normal [facility] Bilirubin Test strip Ql (U)O rdered By: Lasha Pro on 09-25-2024 Bilirubin Ql (U) Negative Negative [facility] Glucose Ql (U)Ordered By: Brittany Pro on 09-25-2024 Urine Glucose (UA) Normal mg/dl Normal [facility] Ketones Test strip Ql (U)Ord ered By: Lasha Pro on 09-25-2024 Ketones Ql (U) Negative Negative [facility] Nitrite Test strip Ql (U)Ord ered By: Lasha Pro on 09-25-2024 Nitrite Ql (U) Negative Negative [facility] Protein Test strip Ql (U)Ord ered By: Lasha Pro on 09-25-2024 Protein Ql (U) 15 mg/dl High Negative [facility] Urine blood detectionOrdered By: Lasha Pro on 09-25-2024 Urine Occult Blood 25 /ul High Negative [facility] Urine clarityOrdered By: Maikel Pro on 09-25-2024 Clarity (U) Sl. Cloudy Clear [facility] Urine color determinationOrd ered By: Lasha Pro on 09-25-2024 Color (U) Yellow Yellow [facility] Urine cultureOrdered By: Maikel Pro on 09-25-2024 Bacteria identified Cx Nom (U) Positive Abnormal [facility] Urine leukocyte esterase det ection by dipstickOrdered By: Lasha Pro on 09-25-2024 Leukocyte esterase Test strip Ql (U) 500 /ul High Negative [facility] Urine pHOrdered By: Jennie Pro on 09-25-2024 pH (U) 6.5 [pH] 5.0 - 8.0 [facility] Urine specific gravity measu rementOrdered By: Lasha Pro on 09-25-2024 Specific gravity (U) [Rel density] 1.005 1.002-1.03 0 [facility] Urobilinogen Ql (U)Ordered B y: Lasha Pro on 09-25-2024 Urine Urobilinogen Normal mg/dl Normal [facility] TSH QnOrdered By: Lasha Pro on 09-18-2024 Thyroid Stimulating Hormone (TSH) 0.307 uIU/mL Low 0.358-3.74 0 [facility] Bilirubin Test strip Ql (U)O rdered By: Lasha Pro on 09-14-2024 Bilirubin Ql (U) Negative Negative [facility] Glucose Ql (U)Ordered By: Brittany Pro on 09-14-2024 Urine Glucose (UA) Normal mg/dl Normal [facility] Ketones Test strip Ql (U)Ord ered By: Lasha Pro on 09-14-2024 Ketones Ql (U) Negative Negative [facility] Nitrite Test strip Ql (U)Ord ered By: Lasha Pro on 09-14-2024 Nitrite Ql (U) Positive High Negative [facility] Protein Test strip Ql (U)Ord ered By: Lasha Pro on 09-14-2024 Protein Ql (U) 15 mg/dl High Negative [facility] TSH QnOrdered By: Lasha Pro on 09-14-2024 Thyroid Stimulating Hormone (TSH) 0.734 uIU/mL 0.358-3.74 0 [facility] Urine blood detectionOrdered By: Lasha Pro on 09-14-2024 Urine Occult Blood 25 /ul High Negative [facility] Urine clarityOrdered By: Maikel Pro on 09-14-2024 Clarity (U) Sl. Cloudy Clear [facility] Urine color determinationOrd ered By: Lasha Pro on 09-14-2024 Color (U) Yellow Yellow [facility] Urine cultureOrdered By: Maikel Pro on 09-14-2024 Bacteria identified Cx Nom (U) ESBL Escherichia coli Abnormal [facility] Urine leukocyte esterase det ection by dipstickOrdered By: Lasha Pro on 09-14-2024 Leukocyte esterase Test strip Ql (U) 500 /ul High Negative [facility] Urine pHOrdered By: Jennie Pro on 09-14-2024 pH (U) 6.5 [pH] 5.0 - 8.0 [facility] Urine specific gravity measu rementOrdered By: Lasha Pro on 09-14-2024 Specific gravity (U) [Rel density] 1.010 1.002-1.03 0 [facility] Urobilinogen Ql (U)Ordered B y: Lasha Pro on 09-14-2024 Urine Urobilinogen Normal mg/dl Normal [facility] Bilirubin Test strip Ql (U)O rdered By: Lasha Pro on 09-03-2024 Bilirubin Ql (U) Negative Negative [facility] Epithelial cells.squamous LM Ql (Urine sed)Ordered By: Lasha Pro on 09-03-2024 Epithelial cells.squamous LM.HPF (Urine sed) [#/Area] 5 /[HPF] 5-10 [facility] Glucose Ql (U)Ordered By: Brittany Pro on 09-03-2024 Urine Glucose (UA) Normal mg/dl Normal [facility] Ketones Test strip Ql (U)Ord ered By: Lasha Pro on 09-03-2024 Ketones Ql (U) Negative Negative [facility] Microscopic analysis of urin e for red blood cells (RBC)Ordered By: Lasha Pro on 09-03-2024 Urine RBC 0-5 SEEN /hpf 0-5 [facility] Mucus LM Ql (Urine sed)Order ed By: Lasha Pro on 09-03-2024 Mucus Ql (Urine sed) 0 SEEN /hpf [facility] Nitrite Test strip Ql (U)Ord ered By: Lasha Pro on 09-03-2024 Nitrite Ql (U) Positive High Negative [facility] Protein Test strip Ql (U)Ord ered By: Lasha Pro on 09-03-2024 Protein Ql (U) 30 mg/dl High Negative [facility] Transitional cells LM Ql (Ur ine sed)Ordered By: Lasha Pro on 09-03-2024 Urine Transitional Epithelial Cells 0-5 SEEN /hpf 0-5 [facility] Urine blood detectionOrdered By: Lasha Pro on 09-03-2024 Urine Occult Blood 25 /ul High Negative [facility] Urine clarityOrdered By: Maikel Pro on 09-03-2024 Clarity (U) Sl. Cloudy Clear [facility] Urine color determinationOrd ered By: Lasha Pro on 09-03-2024 Color (U) Yellow Yellow [facility] Urine cultureOrdered By: Maikel Pro on 09-03-2024 Bacteria identified Cx Nom (U) Mixed Gram Pos & Gram Neg Org Abnormal [facility] Urine leukocyte esterase det ection by dipstickOrdered By: Lasha Pro on 09-03-2024 Leukocyte esterase Test strip Ql (U) 500 /ul High Negative [facility] Urine pHOrdered By: Jennie Pro on 09-03-2024 pH (U) 6.0 [pH] 5.0 - 8.0 [facility] Urine sediment bacteria coun t by microscopy (number/high power field)Ordered By: Lasha Pro on 09-03-2024 Bacteria LM.HPF (Urine sed) [#/Area] 0 /[HPF] None Seen [facility] Urine specific gravity measu rementOrdered By: Lasha Pro on 09-03-2024 Specific gravity (U) [Rel density] 1.015 1.002-1.03 0 [facility] Urobilinogen Ql (U)Ordered B y: Lasha Pro on 09-03-2024 Urine Urobilinogen Normal mg/dl Normal [facility] White blood cell countOrdere d By: Lasha Pro on 09-03-2024 Urine WBC 50-100 SEEN /hpf 0-5 [facility] Yeast LM.HPF (Urine sed) [#/ Area]Ordered By: Lasha Pro on 09-03-2024 Urine Yeast 2+ /hpf None Seen [facility] High density lipoprotein (HD L) measurementOrdered By: Lasha Pro on 08-07-2024 Cholesterol in HDL [Mass/Vol] 62 mg/dL >40 [facility] Comment on above: The drugs N-Acetylcy steine and Metamizole may falsely depress this assay. Reference Range HDL <40 mg/dL Low HDL Cholesterol HDL >or= 60 mg/dL High HDL Cholesterol Low density lipoprotein (LDL ) cholesterol measurementOrdered By: Lasha Pro on 08-07-2024 Cholesterol in LDL [Mass/Vol] 45 mg/dL 0-130 [facility] Serum or plasma cholesterol measurement (mass/volume)Ordered By: Lasha Pro on 08-07-2024 Cholesterol [Mass/Vol] 133 mg/dL <200 [facility] Comment on above: <200 mg/dL Desirable 200-240 mg/dL Borderline >240 mg/dL High Risk TSH QnOrdered By: Lasha Pro on 08-07-2024 Thyroid Stimulating Hormone (TSH) 0.257 uIU/mL Low 0.358-3.74 0 [facility] Triglycerides measurementOrd ered By: Lasha Pro on 08-07-2024 Triglyceride [Mass/Vol] 130 mg/dL <199 [facility] Comment on above: The drugs N-Acetylcy steine and Metamizole may falsely depress this assay.Serum Triglycerides Reference Interval Normal <150 mg/dL Borderline high 150 - 199 mg/dL High 200 - 499 mg/dL Very High > or = 500 mg/dL Very low density lipoprotein (VLDL) cholesterol measurementOrdered By: Lasha Pro on 08-07-2024 VLDL Cholesterol 26 mg/dL 5-40 [facility] .Auto Diffon 02-14-2024 Basophil, Absolute 0.1 10 3/mcL Normal 0.0-0.3 [facility] ([place]) Comment on above: Performed By: #### M ORPH, CBC, DIFF #### [address] [address] Basophils/100 WBC (Bld) 2.1 % Normal 0.0-2.5 [facility] ([place]) Comment on above: Performed By: #### M ORPH, CBC, DIFF #### [address] [address] Eosinophil, Absolute 0.2 10 3/mcL Normal 0.0-0.7 [facility] ([place]) Comment on above: Performed By: #### M ORPH, CBC, DIFF #### [address] [address] Eosinophils/100 WBC (Bld) 5.2 % Normal 0.0-6.0 [facility] ([place]) Comment on above: Performed By: #### M ORPH, CBC, DIFF #### [address] [address] Lymphocyte, Absolute 1.2 10 3/mcL Normal 0.9-4.3 [facility] ([place]) Comment on above: Performed By: #### M ORPH, CBC, DIFF #### [address] [address] Lymphocytes/100 WBC (Bld) 28.4 % Normal 20.0-40.0 [facility] ([place]) Comment on above: Performed By: #### M ORPH, CBC, DIFF #### [address] [address] Monocyte, Absolute 0.4 10 3/mcL Normal 0.1-1.4 [facility] ([place]) Comment on above: Performed By: #### M ORPH, CBC, DIFF #### [address] [address] Monocytes/100 WBC (Bld) 10.7 % Normal 2.0-13.0 [facility] ([place]) Comment on above: Performed By: #### M ORPH, CBC, DIFF #### [address] [address] Neutrophils/100 WBC (Bld) 53.6 % Normal 50.0-75.0 [facility] ([place]) Comment on above: Performed By: #### M ORPH, CBC, DIFF #### [address] [address] .GFRon 02-14-2024 GFR >60 Normal [facility] ([place]) Comment on above: Result Comment: GFR Population [...] G, CBC, BMP, ADIFF, ANEU, GFR #### [address] [place], [place] [address] GFR Non- >60 Normal [facility] ([place]) Comment on above: Result Comment: GFR Population [...] G, CBC, BMP, ADIFF, ANEU, GFR #### [address] [address] .NEUABSon 02-14-2024 Neutrophil, Absolute 2.2 10 3/mcL Low 2.3-8.1 [facility] ([place]) Comment on above: Performed By: #### M ORPH, CBC, DIFF #### [address] [address] BMPon 02-14-2024 BUN/Creatinine Ratio 17.6 ratio Normal 10.0-22.0 [facility] ([place]) Comment on above: Performed By: #### M ORPH, CBC, DIFF #### [address] [address] Calcium [Mass/Vol] 8.4 mg/dL Low 8.7-10.4 [facility] ([place]) Comment on above: Performed By: #### M ORPH, CBC, DIFF #### [address] [address] Chloride [Moles/Vol] 108 mmol/L Normal 98-110 [facility] ([place]) Comment on above: Performed By: #### M ORPH, CBC, DIFF #### [address] [address] CO2 [Moles/Vol] 30 mmol/L Normal 22-32 [facility] ([place]) Comment on above: Performed By: #### M ORPH, CBC, DIFF #### [address] [address] Creatinine [Mass/Vol] 0.51 mg/dL Normal 0.50-1.20 [facility] ([place]) Comment on above: Performed By: #### M ORPH, CBC, DIFF #### [address] [address] Electrolyte Balance 4.0 mEq/L Normal 4.0-15.0 [facility] ([place]) Comment on above: Performed By: #### M ORADILENE, CBC, DIFF #### [address] [address] Glucose [Mass/Vol] 100 mg/dL Normal 82-115 [facility] ([place]) Comment on above: Performed By: #### M ORADILENE, CBC, DIFF #### [address] [address] Potassium [Moles/Vol] 3.7 mmol/L Normal 3.5-5.0 [facility] ([place]) Comment on above: Performed By: #### M ORPH, CBC, DIFF #### [address] [address] Sodium [Moles/Vol] 142 mmol/L Normal 136-145 [facility] ([place]) Comment on above: Performed By: #### M ORPH, CBC, DIFF #### [address] [address] Urea nitrogen [Mass/Vol] 9.0 mg/dL Normal 8.0-22.0 [facility] ([place]) Comment on above: Performed By: #### M ORADILENE, CBC, DIFF #### [address] [address] CBCon 02-14-2024 Erythrocyte distribution width (RBC) [Ratio] 17.6 % High 11.5-15.5 [facility] ([place]) Comment on above: Performed By: #### M ORPH, CBC, DIFF #### [address] [address] Hematocrit (Bld) [Volume fraction] 29.4 % Low 34.0-46.0 [facility] ([place]) Comment on above: Performed By: #### M ORPH, CBC, DIFF #### [address] [address] Hgb 9.6 G/dL Low 12.0-16.0 [facility] ([place]) Comment on above: Performed By: #### M ORPH, CBC, DIFF #### [address] [address] MCH (RBC) [Entitic mass] 30.7 pg Normal 27.0-33.0 [facility] ([place]) Comment on above: Performed By: #### M ORPH, CBC, DIFF #### [address] [address] MCHC 32.7 G/dL Normal 32.0-36.0 [facility] ([place]) Comment on above: Performed By: #### M ORPH, CBC, DIFF #### [address] [address] MCV (RBC) [Entitic vol] 94.0 fL Normal 80.0-99.0 [facility] ([place]) Comment on above: Performed By: #### M ORPH, CBC, DIFF #### [place] [address] Platelet 209 10 3/mcL Normal 150-450 [facility] ([place]) Comment on above: Performed By: #### M ORPH, CBC, DIFF #### [place] [address] Platelet mean volume (Bld) [Entitic vol] 7.0 fL Normal 6.6-10.5 [facility] ([place]) Comment on above: Performed By: #### M ORPH, CBC, DIFF #### [place] [address] RBC 3.13 10 6/mcL Low 4.10-5.30 [facility] ([place]) Comment on above: Performed By: #### M ORPH, CBC, DIFF #### [address] [address] WBC 4.2 10 3/mcL Low 4.5-10.8 [facility] ([place]) Comment on above: Performed By: #### M ORPH, CBC, DIFF #### [address] [address] LABORATORYOrdered By: SYSTEM SYSTEM on 02-14-2024 Basophils [...] (S/P/Bld) [Vol rate/Area] ml/min/1.73sqm Invalid Interpretation Code [facility] Comment on above: Interpretive Data: [...] (S/P/Bld) [Vol rate/Area] ml/min/1.73sqm Invalid Interpretation Code [facility] Comment on above: Interpretive Data: [...] - 2 .4 mg/dL AH ADM SS MCH (RBC) [Entitic mass] 30.7 [...] 142 mmol/L Normal 136 - 145 mEq/L AH ADM SS Urea nitrogen [Mass/Vol] 9.0 mg/dL Normal 8.0 - 22.0 mg/dL AH ADM SS Urea nitrogen/Creatinine [Mass ratio] 17.6 ratio Normal 10.0 - 22.0 ratio AH ADM SS WBC (Bld) [#/Vol] 4.2 103/mcL Low 4.5 - 10.8 10^3/mcL Workflow SS MGon 02-14-2024 Magnesium [Mass/Vol] 1.9 mg/dL Normal 1.6-2.4 [facility] ([place]) Comment on above: Performed By: #### M ORPH, CBC, DIFF #### [address] [address] .Auto Diffon 02-12-2024 Basophil, Absolute 0.1 10 3/mcL Normal 0.0-0.3 [facility] ([place]) Comment on above: Performed By: #### M ORPH, CBC, DIFF #### [address] [address] Basophils/100 WBC (Bld) 1.9 % Normal 0.0-2.5 [facility] ([place]) Comment on above: Performed By: #### M ORPH, CBC, DIFF #### [address] [address] Eosinophil, Absolute 0.1 10 3/mcL Normal 0.0-0.7 [facility] ([place]) Comment on above: Performed By: #### M ORPH, CBC, DIFF #### [address] [address] Eosinophils/100 WBC (Bld) 3.5 % Normal 0.0-6.0 [facility] ([place]) Comment on above: Performed By: #### M ORPH, CBC, DIFF #### [address] [address] Lymphocyte, Absolute 1.1 10 3/mcL Normal 0.9-4.3 [facility] ([place]) Comment on above: Performed By: #### M ORPH, CBC, DIFF #### [address] [address] Lymphocytes/100 WBC (Bld) 26.8 % Normal 20.0-40.0 [facility] ([place]) Comment on above: Performed By: #### M ORPH, CBC, DIFF #### [address] [address] Monocyte, Absolute 0.4 10 3/mcL Normal 0.1-1.4 [facility] ([place]) Comment on above: Performed By: #### M ORPH, CBC, DIFF #### [address] [address] Monocytes/100 WBC (Bld) 10.7 % Normal 2.0-13.0 [facility] ([place]) Comment on above: Performed By: #### M ORPH, CBC, DIFF #### [address] [address] Neutrophils/100 WBC (Bld) 57.1 % Normal 50.0-75.0 [facility] ([place]) Comment on above: Performed By: #### M ORPH, CBC, DIFF #### [address] [address] .NEUABSon 02-12-2024 Neutrophil, Absolute 2.3 10 3/mcL Normal 2.3-8.1 [facility] ([place]) Comment on above: Performed By: #### M ORPH, CBC, DIFF #### [address] [address] CBCon 02-12-2024 Erythrocyte distribution width (RBC) [Ratio] 17.3 % High 11.5-15.5 [facility] ([place]) Comment on above: Performed By: #### M ORPH, CBC, DIFF #### [address] [address] Hematocrit (Bld) [Volume fraction] 29.6 % Low 34.0-46.0 [facility] ([place] Comment on above: Performed By: #### M ORPH, CBC, DIFF #### [address] [address] Hgb 9.6 G/dL Low 12.0-16.0 [facility] ([place] Comment on above: Performed By: #### M ORPH, CBC, DIFF #### [address] [address] MCH (RBC) [Entitic mass] 30.7 pg Normal 27.0-33.0 [facility] ([place] Comment on above: Performed By: #### M ORPH, CBC, DIFF #### [place] [address] MCHC 32.6 G/dL Normal 32.0-36.0 [facility] ([place] Comment on above: Performed By: #### M ORPH, CBC, DIFF #### [place] [id number] MCV (RBC) [Entitic vol] 94.0 fL Normal 80.0-99.0 [facility] ([place]) Comment on above: Performed By: #### M ORPH, CBC, DIFF #### [id number] Platelet 215 10 3/mcL Normal 150-450 [facility] ([place] Comment on above: Performed By: #### M ORPH, CBC, DIFF #### [id number] Platelet mean volume (Bld) [Entitic vol] 7.5 fL Normal 6.6-10.5 [facility] ([place]) Comment on above: Performed By: #### M ORPH, CBC, DIFF #### [place] [address] RBC 3.15 10 6/mcL Low 4.10-5.30 [facility] ([place] Comment on above: Performed By: #### M ORPH, CBC, DIFF #### [place] [address] WBC 4.1 10 3/mcL Low 4.5-10.8 [facility] ([place]) Comment on above: Performed By: #### M ORPH, CBC, DIFF #### [place] [id number] [place] [address] LABORATORYOrdered By: SYSTEM SYSTEM on 02-12-2024 Basophils [...] 02/11/2024 5:26:58 PM Ordering Provider: DRE Woody [facility]) [facility] 02-10-2024 Hematocrit (Bld) [Volume fraction] 29.5 % Low 34.0-46.0 [facility] ([place]) Comment on above: Performed By: #### U A #### Rosa Maria [address] [address] Hgb 9.9 G/dL Low 12.0-16.0 [facility] ([place]) Comment on above: Performed By: #### U A #### Rosa Maria [address] [address] LABORATORYOrdered By: SYSTEM SYSTEM on 02-10-2024 Hematocrit (Bld) [Volume fraction] 29.5 % Low 34.0 - 46.0 % Workflow SS Hemoglobin (Bld) [Mass/Vol] 9.9 G/dL Low 12.0 - 16.0 G/dL Workflow SS .Manual Diffon 02-09-2024 Basophil %, Manual 2.0 % Normal 0.0-2.5 [facility] ([place]) Comment on above: Performed By: #### M ORPH, CBC, DIFF #### [address] [address] Basophil, Abs Manual 0.1 10 3/mcL Normal 0.0-0.3 [facility] ([place]) Comment on above: Performed By: #### M ORPH, CBC, DIFF #### [address] [address] Eosinophil %, Manual 5.0 % Normal 0.0-6.0 [facility] ([place]) Comment on above: Performed By: #### M ORPH, CBC, DIFF #### [address] [address] Eosinophil, Abs Manual 0.4 10 3/mcL Normal 0.0-0.7 [facility] ([place]) Comment on above: Performed By: #### M ORPH, CBC, DIFF #### [address] [address] Lymphocyte %, Manual 32.0 % Normal 20.0-40.0 [facility] ([place]) Comment on above: Performed By: #### M ORPH, CBC, DIFF #### [address] [address] Lymphocyte, Abs Manual 2.2 10 3/mcL Normal 0.9-4.3 [facility] ([place]) Comment on above: Performed By: #### M ORPH, CBC, DIFF #### [address] [address] Monocyte %, Manual 7.0 % Normal 2.0-13.0 [facility] ([place]) Comment on above: Performed By: #### M ORPH, CBC, DIFF #### [address] [address] Monocyte, Abs Manual 0.5 10 3/mcL Normal 0.1-1.4 [facility] ([place]) Comment on above: Performed By: #### M ORPH, CBC, DIFF #### [address] [address] Neutrophil %, Manual 54.0 % Normal 50.0-75.0 [facility] ([place]) Comment on above: Performed By: #### M ORPH, CBC, DIFF #### [address] [address] Neutrophil, Abs Manual 3.7 10 3/mcL Normal 2.3-8.1 [facility] ([place]) Comment on above: Performed By: #### M ORPH, CBC, DIFF #### [address] [address] Nucleated RBC 0.0 /100 WBC Normal [facility] ([place]) Comment on above: Performed By: #### M ORPH, CBC, DIFF #### [address] [address] .Morphon 02-09-2024 Anisocytosis Ql (Bld) 1+ Normal [facility] ([place]) Comment on above: Performed By: #### M ORPH, CBC, DIFF #### [address] [address] Platelet Estimate Normal Normal [facility] ([place]) Comment on above: Performed By: #### M ORPH, CBC, DIFF #### [address] [address] Polychrom 1+ Normal [facility] ([place]) Comment on above: Performed By: #### M ORPH, CBC, DIFF #### [address] [address] CBCon 02-09-2024 Platelet 220 10 3/mcL Normal 150-450 [facility] ([place]) Comment on above: Performed By: #### M ORPH, CBC, DIFF #### [address] [address] Platelet mean volume (Bld) [Entitic vol] 7.5 fL Normal 6.6-10.5 [facility] ([place]) Comment on above: Performed By: #### M ORPH, CBC, DIFF #### [address] [address] WBC 7.0 10 3/mcL Normal 4.5-10.8 [facility] ([place]) Comment on above: Performed By: #### M ORPH, CBC, DIFF #### [address] [address] Erythrocyte distribution width (RBC) [Ratio] 16.9 % High 11.5-15.5 [facility] ([place]) Comment on above: Performed By: #### M ORPH, CBC, DIFF #### [address] [address] Hematocrit (Bld) [Volume fraction] 29.8 % Low 34.0-46.0 [facility] ([place]) Comment on above: Performed By: #### M ORPH, CBC, DIFF #### [address] [address] Hgb 9.8 G/dL Low 12.0-16.0 [facility] ([place]) Comment on above: Performed By: #### M ORPH, CBC, DIFF #### [address] [address] MCH (RBC) [Entitic mass] 30.8 pg Normal 27.0-33.0 [facility] ([place]) Comment on above: Performed By: #### M ORPH, CBC, DIFF #### [address] [address] MCHC 33.0 G/dL Normal 32.0-36.0 [facility] ([place]) Comment on above: Performed By: #### M ORPH, CBC, DIFF #### [address] [address] MCV (RBC) [Entitic vol] 93.3 fL Normal 80.0-99.0 [facility] ([place]) Comment on above: Performed By: #### M ORPH, CBC, DIFF #### [address] [address] RBC 3.19 10 6/mcL Low 4.10-5.30 [facility] ([place]) Comment on above: Performed By: #### M ORPH, CBC, DIFF #### [address] [address] LABORATORYOrdered By: SYSTEM SYSTEM on 02-09-2024 Anisocytosis [...] Basophil, Absolute 0.1 10 3/mcL Normal 0.0-0.3 [facility] ([place]) Comment on above: Performed By: #### M G, CBC, BMP, ADIFF, ANEU, GFR #### [address] [address] Basophils/100 WBC (Bld) 2.3 % Normal 0.0-2.5 [facility] ([place]) Comment on above: Performed By: #### M G, CBC, BMP, ADIFF, ANEU, GFR #### [address] [address] Eosinophil, Absolute 0.1 10 3/mcL Normal 0.0-0.7 [facility] ([place]) Comment on above: Performed By: #### M G, CBC, BMP, ADIFF, ANEU, GFR #### [address] [address] Eosinophils/100 WBC (Bld) 2.9 % Normal 0.0-6.0 [facility] ([place]) Comment on above: Performed By: #### M G, CBC, BMP, ADIFF, ANEU, GFR #### [address] [address] Lymphocyte, Absolute 0.8 10 3/mcL Low 0.9-4.3 [facility] ([place]) Comment on above: Performed By: #### M G, CBC, BMP, ADIFF, ANEU, GFR #### [address] [address] Lymphocytes/100 WBC (Bld) 20.7 % Normal 20.0-40.0 [facility] ([place]) Comment on above: Performed By: #### M G, CBC, BMP, ADIFF, ANEU, GFR #### [address] [address] Monocyte, Absolute 0.4 10 3/mcL Normal 0.1-1.4 [facility] ([place]) Comment on above: Performed By: #### M G, CBC, BMP, ADIFF, ANEU, GFR #### [address] [address] Monocytes/100 WBC (Bld) 10.1 % Normal 2.0-13.0 [facility] ([place]) Comment on above: Performed By: #### M G, CBC, BMP, ADIFF, ANEU, GFR #### [address] [address] Neutrophils/100 WBC (Bld) 64.0 % Normal 50.0-75.0 [facility] ([place]) Comment on above: Performed By: #### M G, CBC, BMP, ADIFF, ANEU, GFR #### [address] [address] .GFRon 02-08-2024 GFR >60 Normal [facility] ([place]) Comment on above: Result Comment: GFR Population [...] G, CBC, BMP, ADIFF, ANEU, GFR #### [address] [address] GFR Non- >60 Normal [facility] ([place]) Comment on above: Result Comment: GFR Population [...] G, CBC, BMP, ADIFF, ANEU, GFR #### [address] [address] .NEUABSon 02-08-2024 Neutrophil, Absolute 2.6 10 3/mcL Normal 2.3-8.1 [facility] ([place]) Comment on above: Performed By: #### M G, CBC, BMP, ADIFF, ANEU, GFR #### [address] [address] BMPon 02-08-2024 BUN/Creatinine Ratio 14.5 ratio Normal 10.0-22.0 [facility] ([place]) Comment on above: Performed By: #### M G, CBC, BMP, ADIFF, ANEU, GFR #### [address] [address] Calcium [Mass/Vol] 8.5 mg/dL Low 8.7-10.4 [facility] ([place]) Comment on above: Performed By: #### M G, CBC, BMP, ADIFF, ANEU, GFR #### [address] [address] Chloride [Moles/Vol] 107 mmol/L Normal 98-110 [facility] ([place]) Comment on above: Performed By: #### M G, CBC, BMP, ADIFF, ANEU, GFR #### [address] [address] CO2 [Moles/Vol] 26 mmol/L Normal 22-32 [facility] ([place]) Comment on above: Performed By: #### M G, CBC, BMP, ADIFF, ANEU, GFR #### [address] [address] Creatinine [Mass/Vol] 0.62 mg/dL Normal 0.50-1.20 [facility] ([place]) Comment on above: Performed By: #### M G, CBC, BMP, ADIFF, ANEU, GFR #### [address] [address] Electrolyte Balance 9.0 mEq/L Normal 4.0-15.0 [facility] ([place]) Comment on above: Performed By: #### M G, CBC, BMP, ADIFF, ANEU, GFR #### [address] [address] Glucose [Mass/Vol] 108 mg/dL Normal 82-115 [facility] ([place]) Comment on above: Performed By: #### M G, CBC, BMP, ADIFF, ANEU, GFR #### [address] [address] Potassium [Moles/Vol] 4.0 mmol/L Normal 3.5-5.0 [facility] ([place]) Comment on above: Performed By: #### M G, CBC, BMP, ADIFF, ANEU, GFR #### [address] [address] Sodium [Moles/Vol] 142 mmol/L Normal 136-145 [facility] ([place]) Comment on above: Performed By: #### M G, CBC, BMP, ADIFF, ANEU, GFR #### [address] [address] Urea nitrogen [Mass/Vol] 9.0 mg/dL Normal 8.0-22.0 [facility] ([place]) Comment on above: Performed By: #### M G, CBC, BMP, ADIFF, ANEU, GFR #### [address] [address] CBCon 02-08-2024 Erythrocyte distribution width (RBC) [Ratio] 16.4 % High 11.5-15.5 [facility] ([place]) Comment on above: Performed By: #### M G, CBC, BMP, ADIFF, ANEU, GFR #### [place] [address] Hematocrit (Bld) [Volume fraction] 32.7 % Low 34.0-46.0 [facility] ([place]) Comment on above: Performed By: #### M G, CBC, BMP, ADIFF, ANEU, GFR #### [place] [address] Hgb 10.8 G/dL Low 12.0-16.0 [facility] ([place]) Comment on above: Performed By: #### M G, CBC, BMP, ADIFF, ANEU, GFR #### [address] [address] MCH (RBC) [Entitic mass] 30.9 pg Normal 27.0-33.0 [facility] ([place]) Comment on above: Performed By: #### M G, CBC, BMP, ADIFF, ANEU, GFR #### [place] [address] MCHC 33.0 G/dL Normal 32.0-36.0 [facility] ([place]) Comment on above: Performed By: #### M G, CBC, BMP, ADIFF, ANEU, GFR #### [address] [address] MCV (RBC) [Entitic vol] 93.5 fL Normal 80.0-99.0 [facility] ([place]) Comment on above: Performed By: #### M G, CBC, BMP, ADIFF, ANEU, GFR #### [place] [address] Platelet 224 10 3/mcL Normal 150-450 [facility] ([place]) Comment on above: Performed By: #### M G, CBC, BMP, ADIFF, ANEU, GFR #### [place] [address] [place], [place] [address] Platelet mean volume (Bld) [Entitic vol] 7.3 fL Normal 6.6-10.5 [facility] ([place]) Comment on above: Performed By: #### M G, CBC, BMP, ADIFF, ANEU, GFR #### [place] Maria [address] [address] RBC 3.50 10 6/mcL Low 4.10-5.30 [facility] ([place]) Comment on above: Performed By: #### M G, CBC, BMP, ADIFF, ANEU, GFR #### [place] [address] [place], [place] [address] WBC 4.1 10 3/mcL Low 4.5-10.8 [facility] ([place]) Comment on above: Performed By: #### M G, CBC, BMP, ADIFF, ANEU, GFR #### [address] [address] LABORATORYOrdered By: SYSTEM SYSTEM on 02-08-2024 Basophils (Bld) [#/Vol] 0.1 103/mcL Normal 0.0 - 0.3 10^3/mcL AH Workflow SS Basophils/100 WBC (Bld) 2.3 % Normal 0.0 - 2.5 % AH Workflow SS Calcium [Mass/Vol] 8.5 mg/dL Low 8.7 - 10. 4 mg/dL ADM SS Chloride [Moles/Vol] 107 mmol/L Normal 98 - 11 0 mEq/L AH ADM SS CO2 [Moles/Vol] 26 mmol/L Normal 22 - 32 mEq/L AH ADM SS Creatinine [Mass/Vol] 0.62 mg/dL Normal 0.50 - 1.20 mg/dL AH ADM SS Electrolyte Balance 9.0 mEq/L Normal 4.0 - 15 .0 mEq/L AH ADM SS Eosinophils (Bld) [#/Vol] 0.1 103/mcL Normal 0.0 - 0.7 10^3/mcL AH Workflow SS Eosinophils/100 WBC (Bld) 2.9 % Normal 0.0 - 6.0 % Workflow SS GFR/1.73 sq M.predicted among blacks MDRD (S/P/Bld) [Vol rate/Area] ml/min/1.73sqm Invalid Interpretation Code [facility] Chemistry S Comment on above: Interpretive Data: [...] (S/P/Bld) [Vol rate/Area] ml/min/1.73sqm Invalid Interpretation Code [facility] Chemistry S Comment on above: Interpretive Data: [...] 02-08-2024 Magnesium [Mass/Vol] 2.1 mg/dL Normal 1.6-2.4 [facility] ([place]) Comment on above: Performed By: #### M G, CBC, BMP, ADIFF, ANEU, GFR #### [address] [address] .Auto Diffon 02-07-2024 Basophil, Absolute 0.1 10 3/mcL Normal 0.0-0.3 [facility] ([place]) Comment on above: Performed By: #### A MANJULA, CBC, ADIFF, GFR, BMP #### Rosa Maria [address] [address] Basophils/100 WBC (Bld) 1.4 % Normal 0.0-2.5 [facility] ([place]) Comment on above: Performed By: #### A MANJULA, CBC, ADIFF, GFR, BMP #### [address] [address] Eosinophil, Absolute 0.1 10 3/mcL Normal 0.0-0.7 [facility] ([place]) Comment on above: Performed By: #### A MANJULA, CBC, ADIFF, GFR, BMP #### [address] [address] Eosinophils/100 WBC (Bld) 2.6 % Normal 0.0-6.0 [facility] ([place]) Comment on above: Performed By: #### A MANJULA, CBC, ADIFF, GFR, BMP #### [address] [address] Lymphocyte, Absolute 1.1 10 3/mcL Normal 0.9-4.3 [facility] ([place]) Comment on above: Performed By: #### A MANJULA, CBC, ADIFF, GFR, BMP #### [address] [address] Lymphocytes/100 WBC (Bld) 23.2 % Normal 20.0-40.0 [facility] ([place]) Comment on above: Performed By: #### A MANJULA, CBC, ADIFF, GFR, BMP #### [address] [address] Monocyte, Absolute 0.5 10 3/mcL Normal 0.1-1.4 [facility] ([place]) Comment on above: Performed By: #### A MANJULA, CBC, ADIFF, GFR, BMP #### [address] [address] Monocytes/100 WBC (Bld) 10.1 % Normal 2.0-13.0 [facility] ([place]) Comment on above: Performed By: #### A MANJULA, CBC, ADIFF, GFR, BMP #### [address] [address] Neutrophils/100 WBC (Bld) 62.7 % Normal 50.0-75.0 [facility] ([place]) Comment on above: Performed By: #### A MANJULA, CBC, ADIFF, GFR, BMP #### [address] [address] .GFRon 02-07-2024 GFR >60 Normal [facility] ([place]) Comment on above: Result Comment: GFR Population [...] A MANJULA, CBC, ADIFF, GFR, BMP #### [address] [address] GFR Non- >60 Normal [facility] ([place]) Comment on above: Result Comment: GFR Population [...] A MANJULA, CBC, ADIFF, GFR, BMP #### [address] [address] .NEUABSon 02-07-2024 Neutrophil, Absolute 2.8 10 3/mcL Normal 2.3-8.1 [facility] ([place]) Comment on above: Performed By: #### A MANJULA, CBC, ADIFF, GFR, BMP #### [address] [address] BMPon 02-07-2024 BUN/Creatinine Ratio 14.3 ratio Normal 10.0-22.0 [facility] ([place]) Comment on above: Performed By: #### A MANJULA, CBC, ADIFF, GFR, BMP #### [address] [address] Calcium [Mass/Vol] 8.4 mg/dL Low 8.7-10.4 [facility] ([place]) Comment on above: Performed By: #### A MANJULA, CBC, ADIFF, GFR, BMP #### [address] [address] Chloride [Moles/Vol] 107 mmol/L Normal 98-110 [facility] ([place]) Comment on above: Performed By: #### A MANJULA, CBC, ADIFF, GFR, BMP #### [address] [address] CO2 [Moles/Vol] 27 mmol/L Normal 22-32 [facility] ([place]) Comment on above: Performed By: #### A MANJULA, CBC, ADIFF, GFR, BMP #### [address] [address] Creatinine [Mass/Vol] 0.70 mg/dL Normal 0.50-1.20 [facility] ([place]) Comment on above: Performed By: #### A MANJULA, CBC, ADIFF, GFR, BMP #### [address] [address] Electrolyte Balance 7.0 mEq/L Normal 4.0-15.0 [facility] ([place]) Comment on above: Performed By: #### A MANJULA, CBC, ADIFF, GFR, BMP #### [address] [address] Glucose [Mass/Vol] 94 mg/dL Normal 82-115 [facility] ([place]) Comment on above: Performed By: #### A MANJULA, CBC, ADIFF, GFR, BMP #### [address] [address] Potassium [Moles/Vol] 4.2 mmol/L Normal 3.5-5.0 [facility] ([place]) Comment on above: Performed By: #### A MANJULA, CBC, ADIFF, GFR, BMP #### [address] [address] Sodium [Moles/Vol] 141 mmol/L Normal 136-145 [facility] ([place]) Comment on above: Performed By: #### A MANJULA, CBC, ADIFF, GFR, BMP #### [address] [address] Urea nitrogen [Mass/Vol] 10.0 mg/dL Normal 8.0-22.0 [facility] ([place]) Comment on above: Performed By: #### A MANJULA, CBC, ADIFF, GFR, BMP #### [address] [address] CBCon 02-07-2024 Erythrocyte distribution width (RBC) [Ratio] 16.2 % High 11.5-15.5 [facility] ([place]) Comment on above: Performed By: #### A MANJULA, CBC, ADIFF, GFR, BMP #### [place] [id number] Hematocrit (Bld) [Volume fraction] 32.8 % Low 34.0-46.0 [facility] ([place]) Comment on above: Performed By: #### A MANJULA, CBC, ADIFF, GFR, BMP #### [place] [address] Hgb 10.7 G/dL Low 12.0-16.0 [facility] ([place]) Comment on above: Performed By: #### A MANJULA, CBC, ADIFF, GFR, BMP #### [place] [id number] MCH (RBC) [Entitic mass] 30.6 pg Normal 27.0-33.0 [facility] ([place]) Comment on above: Performed By: #### A MANJULA, CBC, ADIFF, GFR, BMP #### [place] [address] MCHC 32.7 G/dL Normal 32.0-36.0 [facility] ([place] Comment on above: Performed By: #### A MANJULA, CBC, ADIFF, GFR, BMP #### [place] [address] MCV (RBC) [Entitic vol] 93.6 fL Normal 80.0-99.0 [facility] ([place]) Comment on above: Performed By: #### A MANJULA, CBC, ADIFF, GFR, BMP #### [address] [address] Platelet 215 10 3/mcL Normal 150-450 [facility] ([place] Comment on above: Performed By: #### A MANJULA, CBC, ADIFF, GFR, BMP #### [address] [address] Platelet mean volume (Bld) [Entitic vol] 7.5 fL Normal 6.6-10.5 [facility] ([place]) Comment on above: Performed By: #### A MANJULA, CBC, ADIFF, GFR, BMP #### [address] [address] RBC 3.50 10 6/mcL Low 4.10-5.30 [facility] ([place] Comment on above: Performed By: #### A MANJULA, CBC, ADIFF, GFR, BMP #### [address] [address] WBC 4.5 10 3/mcL Normal 4.5-10.8 [facility] ([place]) Comment on above: Performed By: #### A MANJULA, CBC, ADIFF, GFR, BMP #### [address] [address] LABORATORYOrdered By: SYSTEM SYSTEM on 02-07-2024 Calcium [Mass/Vol] 8.4 mg/dL Low 8.7 - 10. 4 mg/dL ADM SS Chloride [Moles/Vol] 107 mmol/L Normal 98 - 11 0 mEq/L AH ADM SS CO2 [Moles/Vol] 27 mmol/L Normal 22 - 32 mEq/L ADM SS Creatinine [Mass/Vol] 0.70 mg/dL Normal 0.50 - 1.20 mg/dL ADM SS Electrolyte Balance 7.0 mEq/L Normal 4.0 - 15 .0 mEq/L ADM SS GFR/1.73 sq M.predicted among blacks MDRD (S/P/Bld) [Vol rate/Area] ml/min/1.73sqm Invalid Interpretation Code [facility] Chemistry S Comment on above: Interpretive Data: [...] (S/P/Bld) [Vol rate/Area] ml/min/1.73sqm Invalid Interpretation Code [facility] Chemistry S Comment on above: Interpretive Data: [...] 02-07-2024 Magnesium [Mass/Vol] 1.9 mg/dL Normal 1.6-2.4 [facility] ([place]) Comment on above: Performed By: #### A MANJULA, CBC, ADIFF, GFR, BMP #### [address] [address] .Auto Diffon 02-06-2024 Basophil, Absolute 0.1 10 3/mcL Normal 0.0-0.3 [facility] ([place]) Comment on above: Performed By: #### M ORPH, CBC, DIFF #### [address] [address] Basophils/100 WBC (Bld) 1.5 % Normal 0.0-2.5 [facility] ([place]) Comment on above: Performed By: #### M ORPH, CBC, DIFF #### [address] [address] Eosinophil, Absolute 0.1 10 3/mcL Normal 0.0-0.7 [facility] ([place]) Comment on above: Performed By: #### M ORPH, CBC, DIFF #### [address] [address] Eosinophils/100 WBC (Bld) 2.6 % Normal 0.0-6.0 [facility] ([place]) Comment on above: Performed By: #### M ORPH, CBC, DIFF #### [address] [address] Lymphocyte, Absolute 0.9 10 3/mcL Normal 0.9-4.3 [facility] ([place]) Comment on above: Performed By: #### M ORPH, CBC, DIFF #### [address] [address] Lymphocytes/100 WBC (Bld) 22.0 % Normal 20.0-40.0 [facility] ([place] Comment on above: Performed By: #### M ORPH, CBC, DIFF #### [address] [address] Monocyte, Absolute 0.4 10 3/mcL Normal 0.1-1.4 [facility] ([place]) Comment on above: Performed By: #### M ORPH, CBC, DIFF #### [address] [address] Monocytes/100 WBC (Bld) 9.3 % Normal 2.0-13.0 [facility] ([place]) Comment on above: Performed By: #### M ORPH, CBC, DIFF #### [address] [address] Neutrophils/100 WBC (Bld) 64.6 % Normal 50.0-75.0 [facility] ([place] Comment on above: Performed By: #### M ORPH, CBC, DIFF #### [address] [address] .GFRon 02-06-2024 GFR >60 Normal [facility] ([place]) Comment on above: Result Comment: GFR Population [...] By: #### M ORPH, CBC, DIFF #### [address] [address] GFR Non- >60 Normal [facility] ([place] Comment on above: Result Comment: GFR Population [...] By: #### M ORPH, CBC, DIFF #### [address] [address] .NEUABSon 02-06-2024 Neutrophil, Absolute 2.7 10 3/mcL Normal 2.3-8.1 [facility] ([place]) Comment on above: Performed By: #### M ORPH, CBC, DIFF #### [address] [address] BMPon 02-06-2024 BUN/Creatinine Ratio 14.8 ratio Normal 10.0-22.0 [facility] ([place]) Comment on above: Performed By: #### M ORPH, CBC, DIFF #### [address] [address] Calcium [Mass/Vol] 8.4 mg/dL Low 8.7-10.4 [facility] ([place]) Comment on above: Performed By: #### M ORPH, CBC, DIFF #### [address] [address] Chloride [Moles/Vol] 107 mmol/L Normal 98-110 [facility] ([place] Comment on above: Performed By: #### M ORPH, CBC, DIFF #### [address] [address] CO2 [Moles/Vol] 29 mmol/L Normal 22-32 [facility] ([place] Comment on above: Performed By: #### M ORPH, CBC, DIFF #### [address] [address] Creatinine [Mass/Vol] 0.61 mg/dL Normal 0.50-1.20 [facility] ([place] Comment on above: Performed By: #### M ORPH, CBC, DIFF #### [address] [address] Electrolyte Balance 4.0 mEq/L Normal 4.0-15.0 [facility] ([place]) Comment on above: Performed By: #### M ORPH, CBC, DIFF #### [address] [address] Glucose [Mass/Vol] 93 mg/dL Normal 82-115 [facility] ([place]) Comment on above: Performed By: #### M ORPH, CBC, DIFF #### [address] [address] Potassium [Moles/Vol] 4.1 mmol/L Normal 3.5-5.0 [facility] ([place] Comment on above: Performed By: #### M ORPH, CBC, DIFF #### [address] [address] Sodium [Moles/Vol] 140 mmol/L Normal 136-145 [facility] ([place] Comment on above: Performed By: #### M ORPH, CBC, DIFF #### [place] [id number] Urea nitrogen [Mass/Vol] 9.0 mg/dL Normal 8.0-22.0 [facility] ([place] Comment on above: Performed By: #### M ORPH, CBC, DIFF #### [place] [id number] CBCon 02-06-2024 Erythrocyte distribution width (RBC) [Ratio] 16.3 % High 11.5-15.5 [facility] ([place] Comment on above: Performed By: #### M ORPH, CBC, DIFF #### [address] [address] Hematocrit (Bld) [Volume fraction] 28.6 % Low 34.0-46.0 [facility] ([place] Comment on above: Performed By: #### M ORPH, CBC, DIFF #### [address] [address] Hgb 9.5 G/dL Low 12.0-16.0 [facility] ([place] Comment on above: Performed By: #### M ORPH, CBC, DIFF #### [address] [address] MCH (RBC) [Entitic mass] 30.7 pg Normal 27.0-33.0 [facility] ([place] Comment on above: Performed By: #### M ORPH, CBC, DIFF #### [address] [address] MCHC 33.4 G/dL Normal 32.0-36.0 [facility] ([place] Comment on above: Performed By: #### M ORADILENE, CBC, DIFF #### [place] [id number] MCV (RBC) [Entitic vol] 92.1 fL Normal 80.0-99.0 [facility] ([place] Comment on above: Performed By: #### M ORADILENE, CBC, DIFF #### [place] [address] Platelet 219 10 3/mcL Normal 150-450 [facility] ([place] Comment on above: Performed By: #### M ORADILENE, CBC, DIFF #### [place] [address] Platelet mean volume (Bld) [Entitic vol] 7.4 fL Normal 6.6-10.5 [facility] ([place] Comment on above: Performed By: #### M ORADILENE, CBC, DIFF #### [place] [address] RBC 3.10 10 6/mcL Low 4.10-5.30 [facility] ([place] Comment on above: Performed By: #### M ORPH, CBC, DIFF #### [place] [address] WBC 4.2 10 3/mcL Low 4.5-10.8 [facility] ([place] Comment on above: Performed By: #### M ORPH, CBC, DIFF #### [place] [id number] MGon 02-06-2024 Magnesium [Mass/Vol] 2.0 mg/dL Normal 1.6-2.4 [facility] ([place] Comment on above: Performed By: #### M ORPH, CBC, DIFF #### [address] [address] .Auto Diffon 02-05-2024 Basophil, Absolute 0.0 10 3/mcL Normal 0.0-0.3 [facility] ([place] Comment on above: Performed By: #### M ORPH, CBC, DIFF #### [address] [address] Basophils/100 WBC (Bld) 1.5 % Normal 0.0-2.5 [facility] ([place] Comment on above: Performed By: #### M ORPH, CBC, DIFF #### [address] [address] Eosinophil, Absolute 0.1 10 3/mcL Normal 0.0-0.7 [facility] ([place]) Comment on above: Performed By: #### M ORPH, CBC, DIFF #### [address] [address] Eosinophils/100 WBC (Bld) 3.4 % Normal 0.0-6.0 [facility] ([place]) Comment on above: Performed By: #### M ORPH, CBC, DIFF #### [address] [address] Lymphocyte, Absolute 0.8 10 3/mcL Low 0.9-4.3 [facility] ([place]) Comment on above: Performed By: #### M ORPH, CBC, DIFF #### [address] [address] Lymphocytes/100 WBC (Bld) 26.8 % Normal 20.0-40.0 [facility] ([place]) Comment on above: Performed By: #### M ORPH, CBC, DIFF #### [address] [address] Monocyte, Absolute 0.3 10 3/mcL Normal 0.1-1.4 [facility] ([place] Comment on above: Performed By: #### M ORPH, CBC, DIFF #### [address] [address] Monocytes/100 WBC (Bld) 10.9 % Normal 2.0-13.0 [facility] ([place]) Comment on above: Performed By: #### M ORPH, CBC, DIFF #### [address] [address] Neutrophils/100 WBC (Bld) 57.4 % Normal 50.0-75.0 [facility] ([place] Comment on above: Performed By: #### M ORPH, CBC, DIFF #### [address] [address] .GFRon 02-05-2024 GFR >60 Normal [facility] ([place] Comment on above: Result Comment: GFR Population [...] By: #### M ORPH, CBC, DIFF #### [address] [address] GFR Non- >60 Normal [facility] ([place] Comment on above: Result Comment: GFR Population [...] By: #### M ORPH, CBC, DIFF #### [address] [address] .NEUABSon 02-05-2024 Neutrophil, Absolute 1.8 10 3/mcL Low 2.3-8.1 [facility] ([place]) Comment on above: Performed By: #### M ORPH, CBC, DIFF #### [address] [address] BMPon 02-05-2024 BUN/Creatinine Ratio 20.3 ratio Normal 10.0-22.0 [facility] ([place]) Comment on above: Order Comment: Routi ne for 0501 the morning of patient admission. Performed By: #### M ORPH, CBC, DIFF #### [place] [address] Calcium [Mass/Vol] 8.3 mg/dL Low 8.7-10.4 [facility] ([place]) Comment on above: Order Comment: Routi ne for 0501 the morning of patient admission. Performed By: #### M ORPH, CBC, DIFF #### [place] [address] Chloride [Moles/Vol] 108 mmol/L Normal 98-110 [facility] ([place]) Comment on above: Order Comment: Routi ne for 0501 the morning of patient admission. Performed By: #### M ORPH, CBC, DIFF #### [place] [address] CO2 [Moles/Vol] 27 mmol/L Normal 22-32 [facility] ([place]) Comment on above: Order Comment: Routi ne for 0501 the morning of patient admission. Performed By: #### M ORPH, CBC, DIFF #### [place] [address] Creatinine [Mass/Vol] 0.59 mg/dL Normal 0.50-1.20 [facility] ([place]) Comment on above: Order Comment: Routi ne for 0501 the morning of patient admission. Performed By: #### M ORPH, CBC, DIFF #### [place] [id number] Electrolyte Balance 7.0 mEq/L Normal 4.0-15.0 [facility] ([place]) Comment on above: Order Comment: Routi ne for 0501 the morning of patient admission. Performed By: #### M ORPH, CBC, DIFF #### [address] [address] Glucose [Mass/Vol] 85 mg/dL Normal 82-115 [facility] ([place]) Comment on above: Order Comment: Routi ne for 0501 the morning of patient admission. Performed By: #### M ORPH, CBC, DIFF #### [address] [address] Potassium [Moles/Vol] 4.1 mmol/L Normal 3.5-5.0 [facility] ([place]) Comment on above: Order Comment: Routi ne for 0501 the morning of patient admission. Performed By: #### M ORPH, CBC, DIFF #### [address] [address] Sodium [Moles/Vol] 142 mmol/L Normal 136-145 [facility] ([place]) Comment on above: Order Comment: Routi ne for 0501 the morning of patient admission. Performed By: #### M ORPH, CBC, DIFF #### [address] [address] Urea nitrogen [Mass/Vol] 12.0 mg/dL Normal 8.0-22.0 [facility] ([place]) Comment on above: Order Comment: Routi ne for 0501 the morning of patient admission. Performed By: #### M ORPH, CBC, DIFF #### [place] [id number] CBCon 02-05-2024 Erythrocyte distribution width (RBC) [Ratio] 16.1 % High 11.5-15.5 [facility] ([place]) Comment on above: Order Comment: Routi ne for 0501 the morning of patient admission. Performed By: #### M ORPH, CBC, DIFF #### [place] [id number] Hematocrit (Bld) [Volume fraction] 30.3 % Low 34.0-46.0 [facility] ([place]) Comment on above: Order Comment: Routi ne for 0501 the morning of patient admission. Performed By: #### M ORPH, CBC, DIFF #### [place] [address] Hgb 10.0 G/dL Low 12.0-16.0 [facility] ([place]) Comment on above: Order Comment: Routi ne for 0501 the morning of patient admission. Performed By: #### M ORPH, CBC, DIFF #### [place] [address] MCH (RBC) [Entitic mass] 30.6 pg Normal 27.0-33.0 [facility] ([place]) Comment on above: Order Comment: Routi ne for 0501 the morning of patient admission. Performed By: #### M ORPH, CBC, DIFF #### [place] [address] MCHC 32.9 G/dL Normal 32.0-36.0 [facility] ([place]) Comment on above: Order Comment: Routi ne for 0501 the morning of patient admission. Performed By: #### M ORPH, CBC, DIFF #### [place] [address] MCV (RBC) [Entitic vol] 93.0 fL Normal 80.0-99.0 [facility] ([place]) Comment on above: Order Comment: Routi ne for 0501 the morning of patient admission. Performed By: #### M ORPH, CBC, DIFF #### [place] [address] Platelet 208 10 3/mcL Normal 150-450 [facility] ([place]) Comment on above: Order Comment: Routi ne for 0501 the morning of patient admission. Performed By: #### M ORPH, CBC, DIFF #### [place] [address] Platelet mean volume (Bld) [Entitic vol] 7.7 fL Normal 6.6-10.5 [facility] ([place]) Comment on above: Order Comment: Routi ne for 0501 the morning of patient admission. Performed By: #### M ORPH, CBC, DIFF #### [place] [address] RBC 3.26 10 6/mcL Low 4.10-5.30 [facility] ([place]) Comment on above: Order Comment: Routi ne for 0501 the morning of patient admission. Performed By: #### M ORPH, CBC, DIFF #### [address] [address] WBC 3.2 10 3/mcL Low 4.5-10.8 [facility] ([place]) Comment on above: Order Comment: Routi ne for 0501 the morning of patient admission. Performed By: #### M ORPH, CBC, DIFF #### [address] [address] .Auto Diffon 02-04-2024 Basophil, Absolute 0.1 10 3/mcL Normal 0.0-0.2 [facility] ([place]) Comment on above: Performed By: #### M ORPH, CBC, DIFF #### [address] [address] Basophils/100 WBC (Bld) 1.4 % Normal 0.0-2.5 [facility] ([place]) Comment on above: Performed By: #### M ORPH, CBC, DIFF #### [address] [address] Eosinophil, Absolute 0.2 10 3/mcL Normal 0.0-0.4 [facility] ([place]) Comment on above: Performed By: #### M ORPH, CBC, DIFF #### [address] [address] Eosinophils/100 WBC (Bld) 3.5 % Normal 0.0-7.0 [facility] ([place]) Comment on above: Performed By: #### M ORPH, CBC, DIFF #### [address] [address] Lymphocyte, Absolute 0.8 10 3/mcL Normal 0.8-3.9 [facility] ([place]) Comment on above: Performed By: #### M ORPH, CBC, DIFF #### [address] [address] Lymphocytes/100 WBC (Bld) 16.1 % Normal 10.0-50.0 [facility] ([place]) Comment on above: Performed By: #### M ORPH, CBC, DIFF #### [address] [address] Monocyte, Absolute 0.5 10 3/mcL Normal 0.2-1.0 [facility] ([place]) Comment on above: Performed By: #### M ORPH, CBC, DIFF #### [address] [address] Monocytes/100 WBC (Bld) 11.2 % Normal 1.7-13.0 [facility] ([place]) Comment on above: Performed By: #### M ORPH, CBC, DIFF #### [address] [address] Neutrophils/100 WBC (Bld) 67.8 % Normal 37.0-80.0 [facility] ([place]) Comment on above: Performed By: #### M ORPH, CBC, DIFF #### [address] [address] .GFRon 02-04-2024 GFR 100 ml/min/1.73sqm Normal [facility] ([place]) Comment on above: Result Comment: GFR [...] By: #### M ORPH, CBC, DIFF #### [address] [address] GFR Non- 82 ml/min/1.73sqm Normal [facility] ([place]) Comment on above: Result Comment: GFR Population [...] By: #### M ORPH, CBC, DIFF #### [address] [address] .NEUABSon 02-04-2024 Neutrophil, Absolute 3.2 10 3/mcL Normal 2.9-6.2 [facility] ([place]) Comment on above: Performed By: #### M ORPH, CBC, DIFF #### [address] [address] BMPon 02-04-2024 BUN/Creatinine Ratio 16 ratio Normal 7-27 [facility] ([place]) Comment on above: Performed By: #### M ORPH, CBC, DIFF #### [address] [address] Calcium [Mass/Vol] 8.0 mg/dL Low 8.4-10.2 [facility] ([place]) Comment on above: Performed By: #### M ORPH, CBC, DIFF #### [address] [address] Chloride [Moles/Vol] 104 mmol/L Normal 98-107 [facility] ([place]) Comment on above: Performed By: #### M ORPH, CBC, DIFF #### [address] [address] CO2 [Moles/Vol] 29 mmol/L Normal 23-31 [facility] ([place]) Comment on above: Performed By: #### M ORPH, CBC, DIFF #### [address] [address] Creatinine [Mass/Vol] 0.68 mg/dL Normal 0.55-1.02 [facility] ([place]) Comment on above: Performed By: #### M ORPH, CBC, DIFF #### [address] [address] Electrolyte Balance 8.0 mEq/L Normal 4.0-15.0 [facility] ([place]) Comment on above: Performed By: #### M ORPH, CBC, DIFF #### [address] [address] Glucose [Mass/Vol] 86 mg/dL Normal 83-110 [facility] ([place]) Comment on above: Performed By: #### M ORPH, CBC, DIFF #### [address] [address] Potassium [Moles/Vol] 3.9 mmol/L Normal 3.5-5.1 [facility] ([place]) Comment on above: Performed By: #### M ORPH, CBC, DIFF #### [address] [address] Sodium [Moles/Vol] 141 mmol/L Normal 136-145 [facility] ([place]) Comment on above: Performed By: #### M ORPH, CBC, DIFF #### [address] [address] Urea nitrogen [Mass/Vol] 11 mg/dL Normal 7-18 [facility] ([place]) Comment on above: Performed By: #### M ORPH, CBC, DIFF #### [address] [address] CBCon 02-04-2024 Erythrocyte distribution width (RBC) [Ratio] 15.9 % High 11.5-14.5 [facility] ([place]) Comment on above: Performed By: #### M ORPH, CBC, DIFF #### [address] [address] Hematocrit (Bld) [Volume fraction] 28.7 % Low 37.0-47.0 [facility] ([place]) Comment on above: Performed By: #### M ORPH, CBC, DIFF #### [address] [address] Hgb 9.5 G/dL Low 12.0-16.0 [facility] ([place]) Comment on above: Performed By: #### M ORPH, CBC, DIFF #### [address] [address] MCH (RBC) [Entitic mass] 31.1 pg Normal 27.0-31.2 [facility] ([place]) Comment on above: Performed By: #### M ORPH, CBC, DIFF #### [place] [address] MCHC 33.1 G/dL Normal 33.0-37.0 [facility] ([place] Comment on above: Performed By: #### M ORPH, CBC, DIFF #### [place] [address] MCV (RBC) [Entitic vol] 93.9 fL Normal 80.0-94.0 [facility] ([place]) Comment on above: Performed By: #### M ORPH, CBC, DIFF #### [place] [address] Platelet 187 10 3/mcL Normal 130-400 [facility] ([place] Comment on above: Performed By: #### M ORPH, CBC, DIFF #### [place] [address] Platelet mean volume (Bld) [Entitic vol] 7.4 fL Normal 7.4-10.4 [facility] ([place]) Comment on above: Performed By: #### M ORPH, CBC, DIFF #### [place] [address] RBC 3.05 10 6/mcL Low 4.20-5.40 [facility] ([place]) Comment on above: Performed By: #### M ORPH, CBC, DIFF #### [place] [id number] WBC 4.8 10 3/mcL Normal 4.6-10.8 [facility] ([place]) Comment on above: Performed By: #### M ORPH, CBC, DIFF #### [place] [id number] LABORATORYOrdered By: SYSTEM SYSTEM on 02-04-2024 Basophil, [...] 02-04-2024 Magnesium [Mass/Vol] 2.0 mg/dL Normal 1.8-2.4 [facility] ([place]) Comment on above: Performed By: #### M ORPH, CBC, DIFF #### [address] [address] No Panel Informationon 02-03 Microscopic examination of blood, culture Culture has been received in lab and is no growth to date. Routine cultures are held for 5 days. [facility] .Auto Diffon 02-03-2024 Basophil, Absolute 0.0 10 3/mcL Normal 0.0-0.2 [facility] ([place]) Comment on above: Performed By: #### A MANJULA, CBC, ADIFF, GFR, BMP #### [facility] [address] [place], [place] [address] Basophils/100 WBC (Bld) 0.7 % Normal 0.0-2.5 [facility] ([place]) Comment on above: Performed By: #### A MANJULA, CBC, ADIFF, GFR, BMP #### [facility] [address] [place], [place] [address] Eosinophil, Absolute 0.1 10 3/mcL Normal 0.0-0.4 [facility] ([place]) Comment on above: Performed By: #### A MANJULA, CBC, ADIFF, GFR, BMP #### [address] [address] Eosinophils/100 WBC (Bld) 2.4 % Normal 0.0-7.0 [facility] ([place]) Comment on above: Performed By: #### A MANJULA, CBC, ADIFF, GFR, BMP #### [address] [address] Lymphocyte, Absolute 0.5 10 3/mcL Low 0.8-3.9 [facility] ([place]) Comment on above: Performed By: #### A MANJULA, CBC, ADIFF, GFR, BMP #### [address] [address] Lymphocytes/100 WBC (Bld) 10.0 % Normal 10.0-50.0 [facility] ([place]) Comment on above: Performed By: #### A MANJULA, CBC, ADIFF, GFR, BMP #### [address] [address] Monocyte, Absolute 0.5 10 3/mcL Normal 0.2-1.0 [facility] ([place]) Comment on above: Performed By: #### A MANJULA, CBC, ADIFF, GFR, BMP #### [address] [address] Monocytes/100 WBC (Bld) 10.2 % Normal 1.7-13.0 [facility] ([place]) Comment on above: Performed By: #### A MANJULA, CBC, ADIFF, GFR, BMP #### [address] [address] Neutrophils/100 WBC (Bld) 76.7 % Normal 37.0-80.0 [facility] ([place]) Comment on above: Performed By: #### A MANJULA, CBC, ADIFF, GFR, BMP #### [address] [address] .GFRon 02-03-2024 GFR 103 ml/min/1.73sqm Normal [facility] ([place]) Comment on above: Result Comment: GFR Population [...] A MANJULA, CBC, ADIFF, GFR, BMP #### [address] [address] GFR Non- 85 ml/min/1.73sqm Normal [facility] ([place]) Comment on above: Result Comment: GFR Population [...] A MANJULA, CBC, ADIFF, GFR, BMP #### [address] [address] .NEUABSon 02-03-2024 Neutrophil, Absolute 3.6 10 3/mcL Normal 2.9-6.2 [facility] ([place]) Comment on above: Performed By: #### A MANJULA, CBC, ADIFF, GFR, BMP #### [address] [address] BMPon 02-03-2024 BUN/Creatinine Ratio 17 ratio Normal 7- [facility] ([place]) Comment on above: Performed By: #### A MANJULA, CBC, ADIFF, GFR, BMP #### [address] [address] Calcium [Mass/Vol] 8.1 mg/dL Low 8.4-10.2 [facility] ([place]) Comment on above: Performed By: #### A MANJULA, CBC, ADIFF, GFR, BMP #### [address] [address] Chloride [Moles/Vol] 104 mmol/L Normal 98-107 [facility] ([place]) Comment on above: Performed By: #### A MANJULA, CBC, ADIFF, GFR, BMP #### [address] [address] CO2 [Moles/Vol] 29 mmol/L Normal 23-31 [facility] ([place]) Comment on above: Performed By: #### A MANJULA, CBC, ADIFF, GFR, BMP #### [address] [address] Creatinine [Mass/Vol] 0.66 mg/dL Normal 0.55-1.02 [facility] ([place]) Comment on above: Performed By: #### A MANJULA, CBC, ADIFF, GFR, BMP #### [address] [address] Electrolyte Balance 8.0 mEq/L Normal 4.0-15.0 [facility] ([place]) Comment on above: Performed By: #### A MANJULA, CBC, ADIFF, GFR, BMP #### [address] [address] Glucose [Mass/Vol] 89 mg/dL Normal 83-110 [facility] ([place]) Comment on above: Performed By: #### A MANJULA, CBC, ADIFF, GFR, BMP #### [address] [address] Potassium [Moles/Vol] 3.9 mmol/L Normal 3.5-5.1 [facility] ([place]) Comment on above: Performed By: #### A MANJULA, CBC, ADIFF, GFR, BMP #### [address] [address] Sodium [Moles/Vol] 141 mmol/L Normal 136-145 [facility] ([place]) Comment on above: Performed By: #### A MANJULA, CBC, ADIFF, GFR, BMP #### [address] [address] Urea nitrogen [Mass/Vol] 11 mg/dL Normal 7-18 [facility] ([place]) Comment on above: Performed By: #### A MANJULA, CBC, ADIFF, GFR, BMP #### [address] [address] CBCon 02-03-2024 Erythrocyte distribution width (RBC) [Ratio] 15.9 % High 11.5-14.5 [facility] ([place]) Comment on above: Performed By: #### M G, CBC, BMP, ADIFF, ANEU, GFR #### [place] [address] Hematocrit (Bld) [Volume fraction] 28.1 % Low 37.0-47.0 [facility] ([place]) Comment on above: Performed By: #### M G, CBC, BMP, ADIFF, ANEU, GFR #### [place] [address] Hgb 9.4 G/dL Low 12.0-16.0 [facility] ([place]) Comment on above: Performed By: #### M G, CBC, BMP, ADIFF, ANEU, GFR #### [address] [address] MCH (RBC) [Entitic mass] 31.1 pg Normal 27.0-31.2 [facility] ([place]) Comment on above: Performed By: #### M G, CBC, BMP, ADIFF, ANEU, GFR #### [place] [id number] MCHC 33.3 G/dL Normal 33.0-37.0 [facility] ([place]) Comment on above: Performed By: #### M G, CBC, BMP, ADIFF, ANEU, GFR #### [address] [address] MCV (RBC) [Entitic vol] 93.4 fL Normal 80.0-94.0 [facility] ([place]) Comment on above: Performed By: #### M G, CBC, BMP, ADIFF, ANEU, GFR #### [address] [address] Platelet 187 10 3/mcL Normal 130-400 [facility] ([place]) Comment on above: Performed By: #### M G, CBC, BMP, ADIFF, ANEU, GFR #### [address] [address] Platelet mean volume (Bld) [Entitic vol] 7.7 fL Normal 7.4-10.4 [facility] ([place]) Comment on above: Performed By: #### M G, CBC, BMP, ADIFF, ANEU, GFR #### [address] [address] RBC 3.01 10 6/mcL Low 4.20-5.40 [facility] ([place] Comment on above: Performed By: #### M G, CBC, BMP, ADIFF, ANEU, GFR #### [address] [address] WBC 4.7 10 3/mcL Normal 4.6-10.8 [facility] ([place]) Comment on above: Performed By: #### M G, CBC, BMP, ADIFF, ANEU, GFR #### [address] [address] LABORATORYOrdered By: SYSTEM SYSTEM on 02-03-2024 Basophil, [...] 02-03-2024 Magnesium [Mass/Vol] 2.0 mg/dL Normal 1.8-2.4 [facility] ([place]) Comment on above: Performed By: #### A MANJULA, CBC, ADIFF, GFR, BMP #### [facility] [address] [place], [place] [address] No Panel Informationon 02-02 GSANA Gram Positive Cocci in pairs [facility] Microscopic examination of blood, culture Culture has been received in lab and is no growth to date. Routine cultures are held for 5 days. [facility] .GFRon 02-02-2024 GFR 105 ml/min/1.73sqm Normal [facility] ([place]) Comment on above: Result Comment: GFR Population [...] By: #### M ORPH, CBC, DIFF #### [facility] [address] [place] [address] GFR Non- 87 ml/min/1.73sqm Normal [facility] ([place]) Comment on above: Result Comment: GFR Population [...] By: #### M ORPH, CBC, DIFF #### [address] [address] .Manual Diffon 02-02-2024 Basophil %, Manual 0.0 % Normal 0.0-2.5 [facility] ([place]) Comment on above: Performed By: #### M ORPH, CBC, DIFF #### [address] [address] Basophil, Abs Manual 0.0 10 3/mcL Normal 0.0-0.2 [facility] ([place]) Comment on above: Performed By: #### M ORPH, CBC, DIFF #### [address] [address] Eosinophil %, Manual 0.0 % Normal 0.0-7.0 [facility] ([place]) Comment on above: Performed By: #### M ORPH, CBC, DIFF #### [address] [address] Eosinophil, Abs Manual 0.0 10 3/mcL Normal 0.0-0.4 [facility] ([place]) Comment on above: Performed By: #### M ORPH, CBC, DIFF #### [address] [address] Lymphocyte %, Manual 13.0 % Normal 10.0-50.0 [facility] ([place]) Comment on above: Performed By: #### M ORPH, CBC, DIFF #### [address] [address] Lymphocyte, Abs Manual 1.1 10 3/mcL Normal 0.8-3.9 [facility] ([place]) Comment on above: Performed By: #### M ORPH, CBC, DIFF #### [address] [address] Monocyte %, Manual 5.0 % Normal 1.7-13.0 [facility] ([place]) Comment on above: Performed By: #### M ORPH, CBC, DIFF #### [address] [address] Monocyte, Abs Manual 0.4 10 3/mcL Normal 0.2-1.0 [facility] ([place]) Comment on above: Performed By: #### M ORPH, CBC, DIFF #### [address] [address] Neutrophil %, Manual 82.0 % High 37.0-80.0 [facility] ([place]) Comment on above: Performed By: #### M ORPH, CBC, DIFF #### [address] [address] Neutrophil, Abs Manual 6.8 10 3/mcL High 2.9-6.2 [facility] ([place] Comment on above: Performed By: #### M ORPH, CBC, DIFF #### [address] [address] Nucleated RBC 0.0 /100 WBC Normal [facility] ([place]) Comment on above: Performed By: #### M ORPH, CBC, DIFF #### [address] [address] .Morphon 02-02-2024 Anisocytosis Ql (Bld) 1+ Normal [facility] ([place]) Comment on above: Performed By: #### M ORPH, CBC, DIFF #### [address] [address] Microcytosis 1+ Normal [facility] ([place]) Comment on above: Performed By: #### M ORPH, CBC, DIFF #### [address] [address] Platelet Estimate Normal Normal [facility] ([place] Comment on above: Performed By: #### M ORPH, CBC, DIFF #### [address] [address] BMPon 02-02-2024 BUN/Creatinine Ratio 23 ratio Normal 7-27 [facility] ([place]) Comment on above: Performed By: #### U A #### [address] [address] Calcium [Mass/Vol] 8.1 mg/dL Low 8.4-10.2 [facility] ([place]) Comment on above: Performed By: #### U A #### [address] [address] Chloride [Moles/Vol] 103 mmol/L Normal 98-107 [facility] ([place]) Comment on above: Performed By: #### U A #### [address] [address] CO2 [Moles/Vol] 28 mmol/L Normal 23-31 [facility] ([place] Comment on above: Performed By: #### U A #### [address] [address] Creatinine [Mass/Vol] 0.65 mg/dL Normal 0.55-1.02 [facility] ([place] Comment on above: Performed By: #### U A #### [address] [address] Electrolyte Balance 8.0 mEq/L Normal 4.0-15.0 [facility] ([place]) Comment on above: Performed By: #### U A #### [address] [address] Glucose [Mass/Vol] 98 mg/dL Normal 83-110 [facility] ([place]) Comment on above: Performed By: #### U A #### [address] [address] Potassium [Moles/Vol] 3.7 mmol/L Normal 3.5-5.1 [facility] ([place]) Comment on above: Performed By: #### U A #### [address] [address] Sodium [Moles/Vol] 139 mmol/L Normal 136-145 [facility] ([place] Comment on above: Performed By: #### U A #### [place] [address] [place], [place] [address] Urea nitrogen [Mass/Vol] 15 mg/dL Normal 7-18 [facility] ([place] Comment on above: Performed By: #### U A #### [place] [address] [place], [place] [address] CBCon 02-02-2024 Erythrocyte distribution width (RBC) [Ratio] 16.1 % High 11.5-14.5 [facility] ([place]) Comment on above: Order Comment: QNSQu estionable results Performed By: #### M ORADILENE, CBC, DIFF #### [address] [address] Platelet 187 10 3/mcL Normal 130-400 [facility] ([place] Comment on above: Order Comment: QNSQu estionable results Performed By: #### M ORPH, CBC, DIFF #### [address] [address] Platelet mean volume (Bld) [Entitic vol] 7.7 fL Normal 7.4-10.4 [facility] ([place]) Comment on above: Order Comment: QNSQu estionable results Performed By: #### M ORPH, CBC, DIFF #### [address] [address] Hematocrit (Bld) [Volume fraction] 31.1 % Low 37.0-47.0 [facility] ([place] Comment on above: Order Comment: QNSQu estionable results Performed By: #### M ORPH, CBC, DIFF #### [address] [address] Hgb 10.3 G/dL Low 12.0-16.0 [facility] ([place] Comment on above: Order Comment: QNSQu estionable results Performed By: #### M ORPH, CBC, DIFF #### [address] [address] MCH (RBC) [Entitic mass] 31.1 pg Normal 27.0-31.2 [facility] ([place] Comment on above: Order Comment: QNSQu estionable results Performed By: #### M ORPH, CBC, DIFF #### [place] [address] MCHC 33.1 G/dL Normal 33.0-37.0 [facility] ([place] Comment on above: Order Comment: QNSQu estionable results Performed By: #### M ORPH, CBC, DIFF #### [place] [address] MCV (RBC) [Entitic vol] 94.0 fL Normal 80.0-94.0 [facility] ([place]) Comment on above: Order Comment: QNSQu estionable results Performed By: #### M ORADILENE, CBC, DIFF #### [place] [address] RBC 3.30 10 6/mcL Low 4.20-5.40 [facility] ([place]) Comment on above: Order Comment: QNSQu estionable results Performed By: #### M ORPH, CBC, DIFF #### [place] [address] WBC 8.4 10 3/mcL Normal 4.6-10.8 [facility] ([place]) Comment on above: Order Comment: QNSQu estionable results Performed By: #### M ORADILENE, CBC, DIFF #### [place] [address] CT ABDOMEN/PELVIS W/CONTRAST on 02-02-2024 CT ABDOMEN/PELVIS [...] 02/02/2024 5:34:24 PM Ordering Provider: KUMAR Woody [facility] ([place] LABORATORYOrdered By: SYSTEM SYSTEM on 02-02-2024 Anisocytosis [...] 02-02-2024 Magnesium [Mass/Vol] 2.0 mg/dL Normal 1.8-2.4 [facility] ([place]) Comment on above: Performed By: #### U A #### [place] [id number] No Panel Informationon 02-01 Enterococcus faecalis Enterococcus faecalis [facility] GSAER Gram Positive Cocci in pairs [facility] Microscopic examination of blood, culture Enterococcus faecalis Isolated from aerobe bottle only. Refer to previous culture for susceptibility. [id number] collected 01-31-24 [facility] .GFRon 02-01-2024 GFR Non- 67 ml/min/1.73sqm Normal [facility] ([place] Comment on above: Result Comment: GFR Population [...] meters Performed By: #### U A #### [address] [place], [place] [address] GFR 82 ml/min/1.73sqm Normal [facility] ([place] Comment on above: Result Comment: GFR Population [...] meters Performed By: #### U A #### [address] [address] .Manual Diffon 02-01-2024 Neutrophil, Abs Manual 7.1 10 3/mcL High 2.9-6.2 [facility] ([place] Comment on above: Performed By: #### U A #### [address] [address] Bands 5.0 % Normal 0.0-5.0 [facility] ([place] Comment on above: Performed By: #### U A #### [address] [address] Basophil %, Manual 1.0 % Normal 0.0-2.5 [facility] ([place]) Comment on above: Performed By: #### U A #### [address] [address] Basophil, Abs Manual 0.1 10 3/mcL Normal 0.0-0.2 [facility] ([place]) Comment on above: Performed By: #### U A #### [address] [address] Eosinophil %, Manual 1.0 % Normal 0.0-7.0 [facility] ([place] Comment on above: Performed By: #### U A #### [address] [address] Eosinophil, Abs Manual 0.1 10 3/mcL Normal 0.0-0.4 [facility] ([place] Comment on above: Performed By: #### U A #### [address] [address] Lymphocyte %, Manual 9.0 % Low 10.0-50.0 [facility] ([place] Comment on above: Performed By: #### U A #### [address] [address] Lymphocyte, Abs Manual 0.8 10 3/mcL Normal 0.8-3.9 [facility] [place] Comment on above: Performed By: #### U A #### [address] [address] Monocyte %, Manual 5.0 % Normal 1.7-13.0 [facility] ([place] Comment on above: Performed By: #### U A #### [address] [address] Monocyte, Abs Manual 0.4 10 3/mcL Normal 0.2-1.0 [facility] ([place] Comment on above: Performed By: #### U A #### [address] [address] Neutrophil %, Manual 79.0 % Normal 37.0-80.0 [facility] ([place] Comment on above: Performed By: #### U A #### [address] [address] Nucleated RBC 0.0 /100 WBC Normal [facility] [place] Comment on above: Performed By: #### U A #### [address] [address] .Morphon 02-01-2024 Ovalocytes 1+ Normal [facility] ([place] Comment on above: Performed By: #### U A #### [address] [address] Platelet Estimate Normal Normal [facility] ([place] Comment on above: Performed By: #### U A #### [address] [address] Toxic Gran 1+ Normal [facility] ([place] Comment on above: Performed By: #### U A #### [address] [address] Vacuolated Neutrophils 1+ Normal [facility] ([place] Comment on above: Performed By: #### U A #### [address] [address] CBCon 02-01-2024 Erythrocyte distribution width (RBC) [Ratio] 16.1 % High 11.5-14.5 [facility] ([place] Comment on above: Performed By: #### U A #### [address] [address] Hematocrit (Bld) [Volume fraction] 31.1 % Low 37.0-47.0 [facility] ([place] Comment on above: Performed By: #### U A #### [address] [address] Hgb 10.2 G/dL Low 12.0-16.0 [facility] ([place] Comment on above: Performed By: #### U A #### [address] [address] MCH (RBC) [Entitic mass] 30.9 pg Normal 27.0-31.2 [facility] ([place] Comment on above: Performed By: #### U A #### [address] [address] MCHC 32.9 G/dL Low 33.0-37.0 [facility] ([place] Comment on above: Performed By: #### U A #### [address] [address] MCV (RBC) [Entitic vol] 93.9 fL Normal 80.0-94.0 [facility] ([place] Comment on above: Performed By: #### U A #### [address] [address] Platelet 177 10 3/mcL Normal 130-400 [facility] ([place] Comment on above: Performed By: #### U A #### [address] [address] Platelet mean volume (Bld) [Entitic vol] 7.9 fL Normal 7.4-10.4 [facility] ([place] Comment on above: Performed By: #### U A #### [address] [address] RBC 3.31 10 6/mcL Low 4.20-5.40 [facility] ([place] Comment on above: Performed By: #### U A #### [address] [address] WBC 8.5 10 3/mcL Normal 4.6-10.8 [facility] ([place] Comment on above: Performed By: #### U A #### [address] [address] CMPon 02-01-2024 Albumin Level 2.5 G/dL Low 3.4-4.8 [facility] ([place] Comment on above: Performed By: #### U A #### [address] [address] Albumin/Globulin [Mass ratio] 0.6 {ratio} Low 1.1-2.5 [facility] ([place] Comment on above: Performed By: #### U A #### [address] [address] ALP [Catalytic activity/Vol] 90 U/L Normal 40-135 [facility] ([place] Comment on above: Performed By: #### U A #### [address] [address] ALT [Catalytic activity/Vol] 41 U/L Normal 14-59 [facility] ([place] Comment on above: Performed By: #### U A #### [address] [address] AST [Catalytic activity/Vol] 39 U/L Normal 10-40 [facility] ([place] Comment on above: Performed By: #### U A #### [address] [address] Bili Total 0.6 mg/dL Normal 0.2-1.0 [facility] ([place] Comment on above: Result Comment: Use of this assay is not recommended for patients undergoing treatment with eltrombopag due to the potential for falsely elevated results. Performed By: #### U A #### [address] [address] BUN/Creatinine Ratio 21 ratio Normal 7-27 [facility] ([place]) Comment on above: Performed By: #### U A #### [address] [address] Calcium [Mass/Vol] 8.2 mg/dL Low 8.4-10.2 [facility] ([place]) Comment on above: Performed By: #### U A #### [address] [address] Chloride [Moles/Vol] 99 mmol/L Normal 98-107 [facility] ([place] Comment on above: Performed By: #### U A #### [address] [address] CO2 [Moles/Vol] 26 mmol/L Normal 23-31 [facility] ([place] Comment on above: Performed By: #### U A #### [address] [address] Creatinine [Mass/Vol] 0.81 mg/dL Normal 0.55-1.02 [facility] ([place] Comment on above: Performed By: #### U A #### [address] [address] Electrolyte Balance 12.0 mEq/L Normal 4.0-15.0 [facility] ([place]) Comment on above: Performed By: #### U A #### [address] [address] Globulin 4.1 G/dL Normal [facility] ([place] Comment on above: Performed By: #### U A #### [address] [address] Glucose [Mass/Vol] 121 mg/dL High 83-110 [facility] ([place] Comment on above: Performed By: #### U A #### [address] [address] Potassium [Moles/Vol] 4.3 mmol/L Normal 3.5-5.1 [facility] ([place] Comment on above: Performed By: #### U A #### [address] [address] Sodium [Moles/Vol] 137 mmol/L Normal 136-145 [facility] ([place]) Comment on above: Performed By: #### U A #### [address] [place], [place] [address] Total Protein 6.6 G/dL Normal 6.4-8.2 [facility] ([place] Comment on above: Performed By: #### U A #### [address] [place], [place] [address] Urea nitrogen [Mass/Vol] 17 mg/dL Normal 7-18 [facility] ([place] Comment on above: Performed By: #### U A #### [address] [place], [place] [address] LABORATORYOrdered By: SYSTEM SYSTEM on 02-01-2024 Albumin [...] 02-01-2024 Magnesium [Mass/Vol] 2.0 mg/dL Normal 1.8-2.4 [facility] ([place]) Comment on above: Performed By: #### U A #### [address] [address] No Panel Informationon 01-31 GSAER Gram Positive Cocci in pairs [facility] GSANA Gram Positive Cocci in pairs [facility] Microscopic examination of blood, culture Culture has been received in lab and is no growth to date. Routine cultures are held for 5 days. [facility] .Auto Diffon 01-31-2024 Basophil, Absolute 0.0 10 3/mcL Normal 0.0-0.2 [facility] ([place]) Comment on above: Performed By: #### A MANJULA, CBC, ADIFF, GFR, BMP #### [address] [address] Basophils/100 WBC (Bld) 0.3 % Normal 0.0-2.5 [facility] ([place] Comment on above: Performed By: #### A MANJULA, CBC, ADIFF, GFR, BMP #### [address] [address] Eosinophil, Absolute 0.0 10 3/mcL Normal 0.0-0.4 [facility] ([place]) Comment on above: Performed By: #### A MANJULA, CBC, ADIFF, GFR, BMP #### [address] [address] Eosinophils/100 WBC (Bld) 1.0 % Normal 0.0-7.0 [facility] ([place] Comment on above: Performed By: #### A MANJULA, CBC, ADIFF, GFR, BMP #### [address] [address] Lymphocyte, Absolute 1.0 10 3/mcL Normal 0.8-3.9 [facility] ([place]) Comment on above: Performed By: #### A MANJULA, CBC, ADIFF, GFR, BMP #### [address] [address] Lymphocytes/100 WBC (Bld) 13.1 % Normal 10.0-50.0 [facility] ([place] Comment on above: Performed By: #### A MANJULA, CBC, ADIFF, GFR, BMP #### [address] [address] Monocyte, Absolute 0.6 10 3/mcL Normal 0.2-1.0 [facility] ([place]) Comment on above: Performed By: #### A MANJULA, CBC, ADIFF, GFR, BMP #### [address] [address] Monocytes/100 WBC (Bld) 8.7 % Normal 1.7-13.0 [facility] ([place] Comment on above: Performed By: #### A MANJULA, CBC, ADIFF, GFR, BMP #### [address] [address] Neutrophils/100 WBC (Bld) 76.7 % Normal 37.0-80.0 [facility] ([place] Comment on above: Performed By: #### A MANJULA, CBC, ADIFF, GFR, BMP #### [address] [address] .GFRon 01-31-2024 GFR 98 ml/min/1.73sqm Normal [facility] ([place] Comment on above: Result Comment: GFR Population [...] A MANJULA, CBC, ADIFF, GFR, BMP #### [address] [address] GFR Non- 81 ml/min/1.73sqm Normal [facility] ([place] Comment on above: Result Comment: GFR Population [...] A MANJULA, CBC, ADIFF, GFR, BMP #### [address] [address] .NEUABSon 01-31-2024 Neutrophil, Absolute 5.9 10 3/mcL Normal 2.9-6.2 [facility] ([place]) Comment on above: Performed By: #### A MANJULA, CBC, ADIFF, GFR, BMP #### [address] [place], [place] [address] BCIDon 01-31-2024 Acinetobacter camryn-baumanii complex Not detected Normal Not Detected [facility] ([place] Comment on above: Performed By: #### M ORPH, CBC, DIFF #### [address] [address] Bacteroides fragilis Not detected Normal Not Detected [facility] ([place] Comment on above: Performed By: #### M ORPH, CBC, DIFF #### [address] [address] BCID Comment See Comment Normal [facility] ([place] Comment on above: Result Comment: Anti microbial [...] By: #### M ORPH, CBC, DIFF #### [address] [address] Kasandra albicans Not detected Normal Not Detected [facility] ([place] Comment on above: Performed By: #### M ORPH, CBC, DIFF #### [address] [address] Kasandra auris Not detected Normal Not Detected [facility] ([place] Comment on above: Performed By: #### M ORPH, CBC, DIFF #### [address] [address] Kasandra glabrata Not detected Normal Not Detected [facility] ([place] Comment on above: Performed By: #### M ORPH, CBC, DIFF #### [address] [address] Kasandra krusei Not detected Normal Not Detected [facility] ([place]) Comment on above: Performed By: #### M ORPH, CBC, DIFF #### [facility] [address] [place] [address] Kasandra parapsilosis Not detected Normal Not Detected [facility] ([place]) Comment on above: Performed By: #### M ORPH, CBC, DIFF #### [facility] [address] [place] [address] Kasandra tropicalis Not detected Normal Not Detected [facility] ([place]) Comment on above: Performed By: #### M ORPH, CBC, DIFF #### [facility] [address] [place] [address] Cryptococcus neoformans-gattii Not detected Normal Not Detected [facility] ([place]) Comment on above: Performed By: #### M ORPH, CBC, DIFF #### [address] [address] CTX-M (ESBL) Not Applicable Normal Not Detected [facility] ([place]) Comment on above: Performed By: #### M ORPH, CBC, DIFF #### [address] [address] E. Coli Not detected Normal Not Detected [facility] ([place] Comment on above: Performed By: #### M ORPH, CBC, DIFF #### [address] [address] Enterobacter cloacae Complex Not detected Normal Not Detected [facility] ([place] Comment on above: Performed By: #### M ORPH, CBC, DIFF #### [facility] [address] [place] [address] Enterobacterales Not detected Normal Not Detected [facility] ([place] Comment on above: Performed By: #### M ORPH, CBC, DIFF #### [facility] [address] [place] [address] Enterococcus faecalis Detected Abnormal Not Detected [facility] ([place] Comment on above: Performed By: #### M ORPH, CBC, DIFF #### [facility] [address] [place] [address] Enterococcus faecium Not detected Normal Not Detected [facility] ([place]) Comment on above: Performed By: #### M ORPH, CBC, DIFF #### [facility] [address] [place], [place] [id number] Haemophilus influenzae Not detected Normal Not Detected [facility] ([place] Comment on above: Performed By: #### M ORPH, CBC, DIFF #### [facility] [address] [place] [address] IMP (Carbapenemase) Not Applicable Normal Not Detected [facility] ([place] Comment on above: Performed By: #### M ORPH, CBC, DIFF #### [facility] [address] [place] [address] Klebsiella aerogenes Not detected Normal Not Detected [facility] ([place] Comment on above: Performed By: #### M ORPH, CBC, DIFF #### [facility] [address] [place] [address] Klebsiella oxytoca Not detected Normal Not Detected [facility] ([place] Comment on above: Performed By: #### M ORPH, CBC, DIFF #### [address] [address] Klebsiella pneumoniae group Not detected Normal Not Detected [facility] ([place] Comment on above: Performed By: #### M ORPH, CBC, DIFF #### [facility] [address] [place] [address] KPC (Carbapenemase) Not Applicable Normal Not Detected [facility] ([place] Comment on above: Performed By: #### M ORPH, CBC, DIFF #### [facility] [address] [place] [address] Listeria monocytogenes Not detected Normal Not Detected [facility] ([place] Comment on above: Performed By: #### M ORPH, CBC, DIFF #### [facility] [address] [place] [address] MCR-1 (Colistin Resistance) Not Applicable Normal Not Detected [facility] ([place] Comment on above: Performed By: #### M ORPH, CBC, DIFF #### [facility] [address] [place] [address] Mec A/C Not Applicable Normal Not Detected [facility] ([place] Comment on above: Performed By: #### M ORPH, CBC, DIFF #### [facility] [address] [place] [address] Mec A/C-MREJ (MRSA) Not Applicable Normal Not Detected [facility] ([place] Comment on above: Performed By: #### M ORPH, CBC, DIFF #### [facility] [address] [place] [address] NDM (Carbapenemase) Not Applicable Normal Not Detected [facility] ([place] Comment on above: Performed By: #### M ORPH, CBC, DIFF #### [facility] [address] [place] [address] Neisseria meningitidis (Encapsalated) Not detected Normal Not Detected [facility] ([place] Comment on above: Performed By: #### M ORPH, CBC, DIFF #### [facility] [address] [place] [address] OXA-48 like (Carbapenemase) Not Applicable Normal Not Detected [facility] ([place] Comment on above: Performed By: #### M ORPH, CBC, DIFF #### [address] [address] Proteus Not detected Normal Not Detected [facility] ([place] Comment on above: Performed By: #### M ORPH, CBC, DIFF #### [address] [address] Pseudomonas aeruginosa Not detected Normal Not Detected [facility] ([place] Comment on above: Performed By: #### M ORPH, CBC, DIFF #### [address] [address] S. agalactiae Org specific cx Ql (Vag fld) Not detected Normal Not Detected [facility] ([place] Comment on above: Performed By: #### M ORPH, CBC, DIFF #### [facility] [address] [place], [place] [id number] Salmonella species Not detected Normal Not Detected [facility] ([place] Comment on above: Performed By: #### M ORPH, CBC, DIFF #### [facility] [address] [place] [address] Serratia marcescens Not detected Normal Not Detected [facility] ([place] Comment on above: Performed By: #### M ORPH, CBC, DIFF #### [facility] [address] [place] [address] Staphylococcus Not detected Normal Not Detected [facility] ([place] Comment on above: Performed By: #### M ORPH, CBC, DIFF #### [facility] [address] [place] [address] Staphylococcus aureus Not detected Normal Not Detected [facility] ([place] Comment on above: Result Comment: If S taphylococcus aureus is "Detected", an Infectious Disease physician consult is required on identification. Performed By: #### M ORPH, CBC, DIFF #### [address] [address] Staphylococcus epidermidis Not detected Normal Not Detected [facility] ([place] Comment on above: Performed By: #### M ORPH, CBC, DIFF #### [address] [address] Staphylococcus lugdunensis Not detected Normal Not Detected [facility] ([place] Comment on above: Performed By: #### M ORPH, CBC, DIFF #### [address] [address] Stenotrophomonas maltophilia Not detected Normal Not Detected [facility] ([place] Comment on above: Performed By: #### M ORPH, CBC, DIFF #### [address] [address] Streptococcus Not detected Normal Not Detected [facility] ([place] Comment on above: Performed By: #### M ORPH, CBC, DIFF #### [address] [address] Streptococcus pneumoniae Not detected Normal Not Detected [facility] ([place] Comment on above: Performed By: #### M ORPH, CBC, DIFF #### [address] [address] Streptococcus pyogenes Not detected Normal Not Detected [facility] ([place] Comment on above: Performed By: #### M ORPH, CBC, DIFF #### [address] [address] Van A/B Not detected Normal Not Detected [facility] ([place] Comment on above: Performed By: #### M ORPH, CBC, DIFF #### [address] [address] VIM (Carbapenemase) Not Applicable Normal Not Detected [facility] [place] Comment on above: Performed By: #### M ORPH, CBC, DIFF #### [address] [address] CBCon 01-31-2024 Erythrocyte distribution width (RBC) [Ratio] 14.5 % Normal 11.5-14.5 [facility] ([place]) Comment on above: Performed By: #### A MANJULA, CBC, ADIFF, GFR, BMP #### [id number] Hematocrit (Bld) [Volume fraction] 30.6 % Low 37.0-47.0 [facility] ([place] Comment on above: Performed By: #### A MANJULA, CBC, ADIFF, GFR, BMP #### [place] [id number] Hgb 9.9 G/dL Low 12.0-16.0 [facility] ([place] Comment on above: Performed By: #### A MANJULA, CBC, ADIFF, GFR, BMP #### [place] [id number] MCH (RBC) [Entitic mass] 30.6 pg Normal 27.0-31.2 [facility] ([place] Comment on above: Performed By: #### A MANJULA, CBC, ADIFF, GFR, BMP #### [id number] MCHC 32.6 G/dL Low 33.0-37.0 [facility] ([place] Comment on above: Performed By: #### A MANJULA, CBC, ADIFF, GFR, BMP #### [place] [id number] MCV (RBC) [Entitic vol] 93.6 fL Normal 80.0-94.0 [facility] ([place] Comment on above: Performed By: #### A MANJULA, CBC, ADIFF, GFR, BMP #### [address] [address] Platelet 229 10 3/mcL Normal 130-400 [facility] ([place] Comment on above: Performed By: #### A MANJULA, CBC, ADIFF, GFR, BMP #### [address] [address] Platelet mean volume (Bld) [Entitic vol] 7.6 fL Normal 7.4-10.4 [facility] ([place] Comment on above: Performed By: #### A MANJULA, CBC, ADIFF, GFR, BMP #### [address] [address] RBC 3.27 10 6/mcL Low 4.20-5.40 [facility] ([place] Comment on above: Performed By: #### A MANJULA, CBC, ADIFF, GFR, BMP #### [address] [address] WBC 7.6 10 3/mcL Normal 4.6-10.8 [facility] ([place] Comment on above: Performed By: #### A MANJULA, CBC, ADIFF, GFR, BMP #### [address] [address] CMPon 01-31-2024 Albumin Level 2.4 G/dL Low 3.4-4.8 [facility] ([place]) Comment on above: Performed By: #### A MANJULA, CBC, ADIFF, GFR, BMP #### [address] [address] Albumin/Globulin [Mass ratio] 0.6 {ratio} Low 1.1-2.5 [facility] ([place] Comment on above: Performed By: #### A MANJULA, CBC, ADIFF, GFR, BMP #### [address] [address] ALP [Catalytic activity/Vol] 88 U/L Normal 40-135 [facility] ([place] Comment on above: Performed By: #### A MANJULA, CBC, ADIFF, GFR, BMP #### [address] [address] ALT [Catalytic activity/Vol] 36 U/L Normal 14-59 [facility] ([place] Comment on above: Performed By: #### A MANJULA, CBC, ADIFF, GFR, BMP #### [address] [address] AST [Catalytic activity/Vol] 24 U/L Normal 10-40 [facility] ([place] Comment on above: Performed By: #### A MANJULA, CBC, ADIFF, GFR, BMP #### [address] [address] Bili Total 0.6 mg/dL Normal 0.2-1.0 [facility] ([place] Comment on above: Result Comment: Use of this assay is not recommended for patients undergoing treatment with eltrombopag due to the potential for falsely elevated results. Performed By: #### A MANJULA, CBC, ADIFF, GFR, BMP #### [address] [address] BUN/Creatinine Ratio 17 ratio Normal 7-27 [facility] ([place]) Comment on above: Performed By: #### A MANJULA, CBC, ADIFF, GFR, BMP #### [address] [address] Calcium [Mass/Vol] 8.2 mg/dL Low 8.4-10.2 [facility] ([place]) Comment on above: Performed By: #### A MANJULA, CBC, ADIFF, GFR, BMP #### [address] [address] Chloride [Moles/Vol] 103 mmol/L Normal 98-107 [facility] ([place] Comment on above: Performed By: #### A MANJULA, CBC, ADIFF, GFR, BMP #### [address] [address] CO2 [Moles/Vol] 31 mmol/L Normal 23-31 [facility] ([place] Comment on above: Performed By: #### A MANJULA, CBC, ADIFF, GFR, BMP #### [address] [address] Creatinine [Mass/Vol] 0.69 mg/dL Normal 0.55-1.02 [facility] ([place] Comment on above: Performed By: #### A MANJULA, CBC, ADIFF, GFR, BMP #### [address] [address] Electrolyte Balance 6.0 mEq/L Normal 4.0-15.0 [facility] ([place]) Comment on above: Performed By: #### A MANJULA, CBC, ADIFF, GFR, BMP #### [address] [address] Globulin 4.1 G/dL Normal [facility] ([place] Comment on above: Performed By: #### A MANJULA, CBC, ADIFF, GFR, BMP #### [address] [address] Glucose [Mass/Vol] 112 mg/dL High 83-110 [facility] ([place] Comment on above: Performed By: #### A MANJULA, CBC, ADIFF, GFR, BMP #### [address] [address] Potassium [Moles/Vol] 4.3 mmol/L Normal 3.5-5.1 [facility] ([place]) Comment on above: Performed By: #### A MANJULA, CBC, ADIFF, GFR, BMP #### [address] [address] Sodium [Moles/Vol] 140 mmol/L Normal 136-145 [facility] ([place]) Comment on above: Performed By: #### A MANJULA, CBC, ADIFF, GFR, BMP #### [address] [address] Total Protein 6.5 G/dL Normal 6.4-8.2 [facility] ([place]) Comment on above: Performed By: #### A MANJULA, CBC, ADIFF, GFR, BMP #### [address] [address] Urea nitrogen [Mass/Vol] 12 mg/dL Normal 7-18 [facility] ([place]) Comment on above: Performed By: #### A MANJULA, CBC, ADIFF, GFR, BMP #### [place] [id number] CVFLURVon 01-31-2024 FLU A PCR Negative Normal Negative [facility] ([place]) Comment on above: Performed By: #### A MANJULA, CBC, ADIFF, GFR, BMP #### [place] [address] FLU B PCR Negative Normal Negative [facility] ([place]) Comment on above: Performed By: #### A MANJULA, CBC, ADIFF, GFR, BMP #### [place] [address] RSV PCR Negative Normal Negative [facility] ([place]) Comment on above: Performed By: #### A MANJULA, CBC, ADIFF, GFR, BMP #### [place] [address] SARS-CoV-2 (COVID-19) RNA FAUSTO+probe Ql (Unsp spec) Negative Normal Negative [facility] ([place]) Comment on above: Result Comment: Resu lts [...] A MANJULA, CBC, ADIFF, GFR, BMP #### [place] [address] LABORATORYOrdered By: SYSTEM SYSTEM on 01-31-2024 Albumin [...] Lactic Acid Lvl 1.3 mmol/L Normal 0.4-2.0 [facility] ([place]) Comment on above: Performed By: #### A MANJULA, CBC, ADIFF, GFR, BMP #### [facility] [address] [place], [place] [address] No Panel Informationon 01-30 GSAER Gram Positive Cocci in pairs [facility] GSANA Gram Positive Cocci in [facility] Microscopic examination of blood, culture Enterococcus faecalis Isolated from aerobe and anaerobe bottles. ASHLEIGH to follow [facility] Microscopic examination of blood, culture Enterococcus faecalis Isolated from aerobe and anaerobe bottles. Final report to follow. [facility] XR CHEST 2 VIEWSon 4 XR CHEST [...] 01/31/2024 12:50:22 AM Ordering Provider: MALGORZATA Woody [facility] ([place]) LABORATORYOrdered By: Beckie Alvarez on 01-30-2024 Appearance [...] SS UAon 01-30-2024 Color (U) Yellow Normal [facility] ([place]) Comment on above: Performed By: #### A MANJULA, CBC, ADIFF, GFR, BMP #### [address] [address] Glucose (U) [Mass/Vol] Negative Normal Negative [facility] ([place]) Comment on above: Performed By: #### A MANJULA, CBC, ADIFF, GFR, BMP #### [address] [address] Ketones Ql (U) Negative Normal Negative [facility] ([place]) Comment on above: Performed By: #### A MANJULA, CBC, ADIFF, GFR, BMP #### [address] [address] UA Appear Clear Normal Clear [facility] ([place]) Comment on above: Performed By: #### A MANJULA, CBC, ADIFF, GFR, BMP #### [address] [address] UA Blood Negative Normal Negative [facility] ([place]) Comment on above: Performed By: #### A MANJULA, CBC, ADIFF, GFR, BMP #### [address] [address] UA Leuk Est Negative Normal Negative [facility] ([place]) Comment on above: Performed By: #### A MANJULA, CBC, ADIFF, GFR, BMP #### [address] [address] UA Nitrite Negative Normal Negative [facility] ([place]) Comment on above: Performed By: #### A MANJULA, CBC, ADIFF, GFR, BMP #### [address] [address] UA pH 7.0 Normal 5.0 - 8.0 [facility] ([place]) Comment on above: Performed By: #### A MANJULA, CBC, ADIFF, GFR, BMP #### [address] [address] UA Protein Negative Normal Negative [facility] ([place]) Comment on above: Performed By: #### A MANJULA, CBC, ADIFF, GFR, BMP #### [address] [address] UA Spec Grav 1.020 Normal 1.015-1.02 5 [facility]) Comment on above: Performed By: #### A MANJULA, CBC, ADIFF, GFR, BMP #### [address] [address] UA Specimen Type Straight Cath Normal [facility] ([place]) Comment on above: Performed By: #### A MANJULA, CBC, ADIFF, GFR, BMP #### [address] [address] UA Urobilinogen 2.0 E.U./dL Abnormal 0.2-1.0 [facility] ([place]) Comment on above: Performed By: #### A MANJULA, CBC, ADIFF, GFR, BMP #### [address] [address] Urobilinogen (U) [Mass/Vol] Negative Normal Negative [facility] ([place]) Comment on above: Performed By: #### A MANJULA, CBC, ADIFF, GFR, BMP #### [address] [address] .Auto Diffon 01-25-2024 Basophil, Absolute 0.0 10 3/mcL Normal 0.0-0.2 [facility]) Comment on above: Performed By: #### A MANJULA, CBC, ADIFF, GFR, BMP #### [address] [address] Basophils/100 WBC (Bld) 0.9 % Normal 0.0-2.5 [facility] ([place]) Comment on above: Performed By: #### A MANJULA, CBC, ADIFF, GFR, BMP #### [address] [address] Eosinophil, Absolute 0.0 10 3/mcL Normal 0.0-0.4 [facility] ([place]) Comment on above: Performed By: #### A MANJULA, CBC, ADIFF, GFR, BMP #### [address] [address] Eosinophils/100 WBC (Bld) 0.5 % Normal 0.0-7.0 [facility] ([place]) Comment on above: Performed By: #### A MANJULA, CBC, ADIFF, GFR, BMP #### [address] [address] Lymphocyte, Absolute 0.9 10 3/mcL Normal 0.8-3.9 [facility] ([place]) Comment on above: Performed By: #### A MANJULA, CBC, ADIFF, GFR, BMP #### [address] [address] Lymphocytes/100 WBC (Bld) 16.2 % Normal 10.0-50.0 [facility] ([place]) Comment on above: Performed By: #### A MANJULA, CBC, ADIFF, GFR, BMP #### [address] [address] Monocyte, Absolute 0.6 10 3/mcL Normal 0.2-1.0 [facility] ([place]) Comment on above: Performed By: #### A MANJULA, CBC, ADIFF, GFR, BMP #### [address] [address] Monocytes/100 WBC (Bld) 11.9 % Normal 1.7-13.0 [facility] ([place]) Comment on above: Performed By: #### A MANJULA, CBC, ADIFF, GFR, BMP #### [address] [address] Neutrophils/100 WBC (Bld) 70.5 % Normal 37.0-80.0 [facility] ([place]) Comment on above: Performed By: #### A MANJULA, CBC, ADIFF, GFR, BMP #### [address] [address] .GFRon 01-25-2024 GFR 92 ml/min/1.73sqm Normal [facility] ([place]) Comment on above: Result Comment: GFR Population [...] A MANJULA, CBC, ADIFF, GFR, BMP #### [address] [address] GFR Non- 76 ml/min/1.73sqm Normal [facility] ([place]) Comment on above: Result Comment: GFR Population [...] A MANJULA, CBC, ADIFF, GFR, BMP #### [address] [address] .NEUABSon 01-25-2024 Neutrophil, Absolute 3.8 10 3/mcL Normal 2.9-6.2 [facility] ([place]) Comment on above: Performed By: #### A MANJULA, CBC, ADIFF, GFR, BMP #### [address] [address] BMPon 01-25-2024 BUN/Creatinine Ratio 12 ratio Normal 7-27 [facility] ([place]) Comment on above: Performed By: #### A MANJULA, CBC, ADIFF, GFR, BMP #### [address] [address] Calcium [Mass/Vol] 8.2 mg/dL Low 8.4-10.2 [facility] ([place]) Comment on above: Performed By: #### A MANJULA, CBC, ADIFF, GFR, BMP #### [address] [address] Chloride [Moles/Vol] 100 mmol/L Normal 98-107 [facility] ([place]) Comment on above: Performed By: #### A MANJULA, CBC, ADIFF, GFR, BMP #### [address] [address] CO2 [Moles/Vol] 29 mmol/L Normal 23-31 [facility] ([place]) Comment on above: Performed By: #### A MANJULA, CBC, ADIFF, GFR, BMP #### [address] [address] Creatinine [Mass/Vol] 0.73 mg/dL Normal 0.55-1.02 [facility] ([place]) Comment on above: Performed By: #### A MANJULA, CBC, ADIFF, GFR, BMP #### [address] [address] Electrolyte Balance 6.0 mEq/L Normal 4.0-15.0 [facility] ([place]) Comment on above: Performed By: #### A MANJULA, CBC, ADIFF, GFR, BMP #### [address] [address] Glucose [Mass/Vol] 111 mg/dL High 83-110 [facility] ([place]) Comment on above: Performed By: #### A MANJULA, CBC, ADIFF, GFR, BMP #### [address] [address] Potassium [Moles/Vol] 4.0 mmol/L Normal 3.5-5.1 [facility] ([place]) Comment on above: Performed By: #### A MANJULA, CBC, ADIFF, GFR, BMP #### [place] [id number] Sodium [Moles/Vol] 135 mmol/L Low 136-145 [facility] ([place]) Comment on above: Performed By: #### A MANJULA, CBC, ADIFF, GFR, BMP #### [place] [id number] Urea nitrogen [Mass/Vol] 9 mg/dL Normal 7-18 [facility] ([place]) Comment on above: Performed By: #### A MANJULA, CBC, ADIFF, GFR, BMP #### [address] [address] CBCon 01-25-2024 Erythrocyte distribution width (RBC) [Ratio] 15.5 % High 11.5-14.5 [facility] ([place]) Comment on above: Performed By: #### A MANJULA, CBC, ADIFF, GFR, BMP #### [address] [address] Hematocrit (Bld) [Volume fraction] 31.8 % Low 37.0-47.0 [facility] ([place]) Comment on above: Performed By: #### A MANJULA, CBC, ADIFF, GFR, BMP #### [address] [address] Hgb 10.3 G/dL Low 12.0-16.0 [facility] ([place]) Comment on above: Performed By: #### A MANJULA, CBC, ADIFF, GFR, BMP #### [address] [address] MCH (RBC) [Entitic mass] 30.5 pg Normal 27.0-31.2 [facility] ([place]) Comment on above: Performed By: #### A MANJULA, CBC, ADIFF, GFR, BMP #### [address] [address] MCHC 32.4 G/dL Low 33.0-37.0 [facility] ([place]) Comment on above: Performed By: #### A MANJULA, CBC, ADIFF, GFR, BMP #### [address] [address] MCV (RBC) [Entitic vol] 94.1 fL High 80.0-94.0 [facility] ([place]) Comment on above: Performed By: #### A MANJULA, CBC, ADIFF, GFR, BMP #### [address] [address] Platelet 255 10 3/mcL Normal 130-400 [facility] ([place]) Comment on above: Performed By: #### A MANJULA, CBC, ADIFF, GFR, BMP #### [address] [address] Platelet mean volume (Bld) [Entitic vol] 7.6 fL Normal 7.4-10.4 [facility] ([place]) Comment on above: Performed By: #### A MANJULA, CBC, ADIFF, GFR, BMP #### [address] [address] RBC 3.38 10 6/mcL Low 4.20-5.40 [facility] ([place]) Comment on above: Performed By: #### A MANJULA, CBC, ADIFF, GFR, BMP #### [address] [address] WBC 5.4 10 3/mcL Normal 4.6-10.8 [facility] ([place]) Comment on above: Performed By: #### A MANJULA, CBC, ADIFF, GFR, BMP #### [facility] [place] [address] [place], [place] [address] LABORATORYOrdered By: SYSTEM SYSTEM on 01-25-2024 Basophil, [...] 10,000 -<50,000 CFU/ml Normal urogenital raghu Normal [facility] Comment on above: Performed By: #### 6 30-4 ####[facility] LABIA [id number] [address] [place] CNPNon 01-11-2024 CNPN Normal [facility] CNPNon 01-07-2024 CNPN Normal [facility] CNPNon 01-06-2024 CNPN Normal [facility] Bacteria Ur Culton 4 Bacteria identified Cx Nom (U) Abnormal [facility] Comment on above: Performed By: #### 6 30-4 ####[facility] LABIA [id number] [address] [place] CNPNon 12-16-2023 CNPN Normal [facility] CNPNon 12-15-2023 CNPN Normal [facility] CNPNon 12-14-2023 CNPN Normal [facility] Bacteria Ur Culton 4 Bacteria identified Cx Nom (U) Abnormal [facility] Comment on above: Performed By: #### 6 30-4 ####[facility] LABCLIA [id number] [address] [place] CNOVon 12-13-2023 CNOV Normal [facility] CNPNon 12-13-2023 CNPN Normal [facility] URINALYSIS, REFLEX MICROSCOP ICon 12-13-2023 BACTERIA UL >9821 High Negative [facility] Comment on above: Order Comment: Speci men Type: URINE SPECIMENOrdering Facility: [facility] Address: [address] [place] [address] Performed By: #### L [id number] ####[facility] LABCLIA [id number] [place] [address] [place] Bilirubin Ql (U) Negative Normal Negative [facility] Comment on above: Order Comment: Speci men Type: URINE SPECIMENOrdering Facility: [facility] Address: [address] [place] [address] Performed By: #### L [id number] ####[facility] LABCLIA [id number] [place] [address] [place] Clarity (Unsp spec) Cloudy Abnormal Clear [facility] Comment on above: Order Comment: Speci men Type: URINE SPECIMENOrdering Facility: [facility] Address: [address] [place] [address] Performed By: #### L [id number] ####[facility] LABCLIA [id number] [place] [address] [place] Color (U) Yellow Normal Yellow [facility] Comment on above: Order Comment: Speci men Type: URINE SPECIMENOrdering Facility: [facility] Address: [address] [place] [address] Performed By: #### L [id number] ####[facility] LABIA [id number] [place] [address] [place] Epithelial cells LM.HPF (Urine sed) [#/Area] Moderate Normal [facility] Comment on above: Order Comment: Speci men Type: URINE SPECIMENOrdering Facility: [facility] Address: [address] [place] [address] Performed By: #### L [id number] ####[facility] LABCLIA [id number] [place] [address] [place] Glucose Test strip (U) [Mass/Vol] Negative Normal Negative [facility] Comment on above: Order Comment: Speci men Type: URINE SPECIMENOrdering Facility: [facility] Address: [address] [place] [address] Performed By: #### L [id number] ####[facility] LABCLIA [id number] [place] [address] [place] Hemoglobin Ql (U) Trace Abnormal Negative [facility] Comment on above: Order Comment: Speci men Type: URINE SPECIMENOrdering Facility: [facility] Address: [address] [place] [address] Performed By: #### L [id number] ####[facility] LABCLIA [id number] [place] [address] [place] Hyaline casts (Urine sed) [#/Area] 1-3 /LPF Abnormal 0 /LPF [facility] Comment on above: Order Comment: Speci men Type: URINE SPECIMENOrdering Facility: [facility] Address: [address] [place] [address] Performed By: #### L [id number] ####[facility] LABCLIA [id number] [place] [address] [place] Ketones Ql (U) Negative Normal Negative [facility] Comment on above: Order Comment: Speci men Type: URINE SPECIMENOrdering Facility: [facility] Address: [address] [place] [address] Performed By: #### L [id number] ####[facility] LABCLIA [id number] [place] [address] [place] Leukocyte esterase Test strip Ql (U) 3+ Abnormal Negative [facility] Comment on above: Order Comment: Speci men Type: URINE SPECIMENOrdering Facility: [facility] Address: [address] [place] [address] Performed By: #### L [id number] ####[facility] LABCLIA [id number] [place] [address] [place] Nitrite Ql (U) Negative Normal Negative [facility] Comment on above: Order Comment: Speci men Type: URINE SPECIMENOrdering Facility: [facility] Address: [address] [place] [address] Performed By: #### L [id number] ####[facility] LABCLIA [id number] [place] [address] [place] pH (U) 7.5 [pH] Normal <8.5 [facility] Comment on above: Order Comment: Speci men Type: URINE SPECIMENOrdering Facility: [facility] Address: [address] [place] [address] Performed By: #### L [id number] ####[facility] LABCLIA [id number] [place] [address] [place] Protein (U) [Mass/Vol] Trace Abnormal Negative Cl [facility] Comment on above: Order Comment: Speci men Type: URINE SPECIMENOrdering Facility: [facility] Address: [address] [place] [address] Performed By: #### L [id number] ####[facility] LABCLIA [id number] [place] [address] [place] RBC LM.HPF (Urine sed) [#/Area] /[HPF] Abnormal 0-2 /HPF [facility] Comment on above: Order Comment: Speci men Type: URINE SPECIMENOrdering Facility: [facility] Address: [address] [place] [address] Performed By: #### L [id number] ####[facility] LABCLIA [id number] [place] [address] [place] Specific gravity (U) [Rel density] 1.008 Normal 1.005-1.03 0 [facility] Comment on above: Order Comment: Speci men Type: URINE SPECIMENOrdering Facility: [facility] Address: [address] [place] [address] Performed By: #### L [id number] ####[facility] LABIA [id number] [address] [place] Urobilinogen Ql (U) 0.2 EU/dL Normal 0.2-1.0 EU/dL [facility] Comment on above: Order Comment: Speci men Type: URINE SPECIMENOrdering Facility: [facility] Address: [address] [place] [address] Performed By: #### L [id number] ####[facility] LABIA [id number] [place] [address] [place] WBC LM.HPF (Urine sed) [#/Area] /[HPF] Abnormal 0-5 /HPF [facility] Comment on above: Order Comment: Speci men Type: URINE SPECIMENOrdering Facility: [facility] Address: [address] [place] [address] Performed By: #### L [id number] ####[facility] LABIA [id number] [place] [address] [place] Yeast.budding LM.HPF (Urine sed) [#/Area] Present Abnormal None Seen [facility] Comment on above: Order Comment: Speci men Type: URINE SPECIMENOrdering Facility: [facility] Address: [address] [place] [address] Performed By: #### L [id number] ####[facility] LABIA [id number] [place] [address] [place] .GFRon 12-09-2023 GFR 72 ml/min/1.73sqm Normal [facility] ([place]) Comment on above: Result Comment: GFR Population [...] A MANJULA, CBC, ADIFF, GFR, BMP #### [address] [address] GFR Non- 60 ml/min/1.73sqm Normal [facility] ([place]) Comment on above: Result Comment: GFR Population [...] A MANJULA, CBC, ADIFF, GFR, BMP #### [address] [address] BMPon 12-09-2023 BUN/Creatinine Ratio 19 ratio Normal 7-27 [facility] ([place]) Comment on above: Performed By: #### A MANJULA, CBC, ADIFF, GFR, BMP #### [address] [address] Calcium [Mass/Vol] 8.5 mg/dL Normal 8.4-10.2 [facility] ([place]) Comment on above: Performed By: #### A MANJULA, CBC, ADIFF, GFR, BMP #### [address] [address] Chloride [Moles/Vol] 103 mmol/L Normal 98-107 [facility] ([place]) Comment on above: Performed By: #### A MANJULA, CBC, ADIFF, GFR, BMP #### [address] [address] CO2 [Moles/Vol] 31 mmol/L Normal 23-31 [facility] ([place]) Comment on above: Performed By: #### A MANJULA, CBC, ADIFF, GFR, BMP #### [address] [address] Creatinine [Mass/Vol] 0.90 mg/dL Normal 0.55-1.02 [facility] ([place]) Comment on above: Performed By: #### A MANJULA, CBC, ADIFF, GFR, BMP #### [address] [address] Electrolyte Balance 9.0 mEq/L Normal 4.0-15.0 [facility] ([place]) Comment on above: Performed By: #### A MANJULA, CBC, ADIFF, GFR, BMP #### [address] [address] Glucose [Mass/Vol] 98 mg/dL Normal 83-110 [facility] ([place]) Comment on above: Performed By: #### A MANJULA, CBC, ADIFF, GFR, BMP #### [address] [address] Potassium [Moles/Vol] 4.1 mmol/L Normal 3.5-5.1 [facility] ([place]) Comment on above: Performed By: #### A MANJULA, CBC, ADIFF, GFR, BMP #### [address] [address] Sodium [Moles/Vol] 143 mmol/L Normal 136-145 [facility] ([place]) Comment on above: Performed By: #### A MANJULA, CBC, ADIFF, GFR, BMP #### [address] [place], [place] [address] Urea nitrogen [Mass/Vol] 17 mg/dL Normal 7-18 [facility] ([place]) Comment on above: Performed By: #### A MANJULA, CBC, ADIFF, GFR, BMP #### [place] [address] [place], [place] [address] LABORATORYOrdered By: SYSTEM SYSTEM on 12-09-2023 Calcium [...] Basophil, Absolute 0.0 10 3/mcL Normal 0.0-0.2 [facility] ([place]) Comment on above: Performed By: #### A MANJULA, CBC, ADIFF, GFR, BMP #### [address] [address] Basophils/100 WBC (Bld) 0.5 % Normal 0.0-2.5 [facility] ([place]) Comment on above: Performed By: #### A MANJULA, CBC, ADIFF, GFR, BMP #### [address] [address] Eosinophil, Absolute 0.1 10 3/mcL Normal 0.0-0.4 [facility] ([place]) Comment on above: Performed By: #### A MANJULA, CBC, ADIFF, GFR, BMP #### [address] [address] Eosinophils/100 WBC (Bld) 2.3 % Normal 0.0-7.0 [facility] ([place]) Comment on above: Performed By: #### A MANJULA, CBC, ADIFF, GFR, BMP #### [address] [address] Lymphocyte, Absolute 0.9 10 3/mcL Normal 0.8-3.9 [facility] ([place]) Comment on above: Performed By: #### A MANJULA, CBC, ADIFF, GFR, BMP #### [address] [address] Lymphocytes/100 WBC (Bld) 18.4 % Normal 10.0-50.0 [facility] ([place]) Comment on above: Performed By: #### A MANJULA, CBC, ADIFF, GFR, BMP #### [address] [address] Monocyte, Absolute 0.3 10 3/mcL Normal 0.2-1.0 [facility] ([place]) Comment on above: Performed By: #### A MANJULA, CBC, ADIFF, GFR, BMP #### [address] [address] Monocytes/100 WBC (Bld) 5.9 % Normal 1.7-13.0 [facility] ([place]) Comment on above: Performed By: #### A MANJULA, CBC, ADIFF, GFR, BMP #### [address] [address] Neutrophils/100 WBC (Bld) 72.9 % Normal 37.0-80.0 [facility] ([place]) Comment on above: Performed By: #### A MANJULA, CBC, ADIFF, GFR, BMP #### [address] [address] .GFRon 12-03-2023 GFR Non- 64 ml/min/1.73sqm Normal [facility] ([place]) Comment on above: Result Comment: GFR Population [...] meters Performed By: #### U A #### [address] [address] GFR 77 ml/min/1.73sqm Normal [facility] ([place]) Comment on above: Result Comment: GFR Population [...] meters Performed By: #### U A #### [address] [address] .NEUABSon 12-03-2023 Neutrophil, Absolute 3.5 10 3/mcL Normal 2.9-6.2 [facility] ([place]) Comment on above: Performed By: #### A MANJULA, CBC, ADIFF, GFR, BMP #### [address] [address] BMPon 12-03-2023 BUN/Creatinine Ratio 14 ratio Normal 7-27 [facility] ([place]) Comment on above: Performed By: #### A MANJULA, CBC, ADIFF, GFR, BMP #### [address] [address] Calcium [Mass/Vol] 8.5 mg/dL Normal 8.4-10.2 [facility] ([place]) Comment on above: Performed By: #### A MANJULA, CBC, ADIFF, GFR, BMP #### [address] [address] Chloride [Moles/Vol] 102 mmol/L Normal 98-107 [facility] ([place]) Comment on above: Performed By: #### A MANJULA, CBC, ADIFF, GFR, BMP #### [place] [id number] CO2 [Moles/Vol] 31 mmol/L Normal 23-31 [facility] ([place]) Comment on above: Performed By: #### A MANJULA, CBC, ADIFF, GFR, BMP #### [place] [id number] Creatinine [Mass/Vol] 0.85 mg/dL Normal 0.55-1.02 [facility] ([place]) Comment on above: Performed By: #### A MANJULA, CBC, ADIFF, GFR, BMP #### [address] [address] Electrolyte Balance 8.0 mEq/L Normal 4.0-15.0 [facility] ([place]) Comment on above: Performed By: #### A MANJULA, CBC, ADIFF, GFR, BMP #### [place] [id number] Glucose [Mass/Vol] 113 mg/dL High 83-110 [facility] ([place]) Comment on above: Performed By: #### A MANJULA, CBC, ADIFF, GFR, BMP #### [address] [address] Potassium [Moles/Vol] 3.8 mmol/L Normal 3.5-5.1 [facility] ([place]) Comment on above: Performed By: #### A MANJULA, CBC, ADIFF, GFR, BMP #### [address] [address] Sodium [Moles/Vol] 141 mmol/L Normal 136-145 [facility] ([place]) Comment on above: Performed By: #### A MANJULA, CBC, ADIFF, GFR, BMP #### [place] [address] Urea nitrogen [Mass/Vol] 12 mg/dL Normal 7-18 [facility] ([place]) Comment on above: Performed By: #### A MANJULA, CBC, ADIFF, GFR, BMP #### [address] [address] CBCon 12-03-2023 Erythrocyte distribution width (RBC) [Ratio] 13.1 % Normal 11.5-14.5 [facility] ([place]) Comment on above: Performed By: #### A MANJULA, CBC, ADIFF, GFR, BMP #### [place] [address] Hematocrit (Bld) [Volume fraction] 31.1 % Low 37.0-47.0 [facility] ([place]) Comment on above: Performed By: #### A MANJULA, CBC, ADIFF, GFR, BMP #### [place] [id number] Hgb 10.7 G/dL Low 12.0-16.0 [facility] ([place]) Comment on above: Performed By: #### A MANJULA, CBC, ADIFF, GFR, BMP #### [address] [address] MCH (RBC) [Entitic mass] 32.5 pg High 27.0-31.2 [facility] ([place]) Comment on above: Performed By: #### A MANJULA, CBC, ADIFF, GFR, BMP #### [address] [address] MCHC 34.5 G/dL Normal 33.0-37.0 [facility] ([place]) Comment on above: Performed By: #### A MANJULA, CBC, ADIFF, GFR, BMP #### [address] [address] MCV (RBC) [Entitic vol] 94.2 fL High 80.0-94.0 [facility] ([place]) Comment on above: Performed By: #### A MANJULA, CBC, ADIFF, GFR, BMP #### [address] [address] Platelet 283 10 3/mcL Normal 130-400 [facility] ([place]) Comment on above: Performed By: #### A MANJULA, CBC, ADIFF, GFR, BMP #### [address] [address] Platelet mean volume (Bld) [Entitic vol] 7.2 fL Low 7.4-10.4 [facility] ([place]) Comment on above: Performed By: #### A MANJULA, CBC, ADIFF, GFR, BMP #### [place] [address] RBC 3.30 10 6/mcL Low 4.20-5.40 [facility] ([place]) Comment on above: Performed By: #### A MANJULA, CBC, ADIFF, GFR, BMP #### [place] [address] WBC 4.8 10 3/mcL Normal 4.6-10.8 [facility] ([place]) Comment on above: Performed By: #### A MANJULA, CBC, ADIFF, GFR, BMP #### [address] [address] LABORATORYOrdered By: SYSTEM SYSTEM on 12-03-2023 Basophil, [...] Detected AH Auto Viro/Sero SS B. parapertussis [id number] DNA FAUSTO+non-probe Ql (Nph) Not Detected *NA* [...] This assay has been validated in the [facility] for use with nasopharyngeal specimens in [facility]. If a non-validated specimen or [...] 12-03-2023 Adenovirus Not detected Normal Not Detected [facility] ([place]) Comment on above: Performed By: #### A MANJULA, CBC, ADIFF, GFR, BMP #### [address] [address] Bordetella Parapertussis Not detected Normal Not Detected [facility] ([place]) Comment on above: Performed By: #### A MANJULA, CBC, ADIFF, GFR, BMP #### [address] [address] Bordetella Pertussis Not detected Normal Not Detected [facility] ([place]) Comment on above: Performed By: #### A MANJULA, CBC, ADIFF, GFR, BMP #### [address] [address] Chlamydophila pneumoniae Not detected Normal Not Detected [facility] ([place]) Comment on above: Performed By: #### A MANJULA, CBC, ADIFF, GFR, BMP #### [address] [address] Coronavirus 229E (Not COVID-19) Not detected Normal Not Detected [facility] ([place]) Comment on above: Performed By: #### A MANJULA, CBC, ADIFF, GFR, BMP #### [address] [address] Coronavirus HKU1 (Not COVID-19) Not detected Normal Not Detected [facility] ([place]) Comment on above: Performed By: #### A MANJULA, CBC, ADIFF, GFR, BMP #### [place] [address] Coronavirus NL63 (Not COVID-19) Not detected Normal Not Detected [facility] ([place]) Comment on above: Performed By: #### A MANJULA, CBC, ADIFF, GFR, BMP #### [place] [address] Coronavirus OC43 (Not COVID-19) Not detected Normal Not Detected [facility] ([place]) Comment on above: Performed By: #### A MANJULA, CBC, ADIFF, GFR, BMP #### [place] [address] Human Metapneumovirus Not detected Normal Not Detected [facility] ([place]) Comment on above: Performed By: #### A MANJULA, CBC, ADIFF, GFR, BMP #### [place] [address] Influenza A Not detected Normal Not Detected [facility] ([place]) Comment on above: Performed By: #### A MANJULA, CBC, ADIFF, GFR, BMP #### [address] [address] Influenza B Not detected Normal Not Detected [facility] ([place]) Comment on above: Performed By: #### A MANJULA, CBC, ADIFF, GFR, BMP #### [address] [address] Mycoplasma pneumoniae Not detected Normal Not Detected [facility] ([place]) Comment on above: Performed By: #### A MANJULA, CBC, ADIFF, GFR, BMP #### [place] [address] Parainfluenza 1 Not detected Normal Not Detected [facility] ([place]) Comment on above: Performed By: #### A MANJULA, CBC, ADIFF, GFR, BMP #### [address] [address] Parainfluenza 2 Not detected Normal Not Detected [facility] ([place]) Comment on above: Performed By: #### A MANJULA, CBC, ADIFF, GFR, BMP #### [address] [address] Parainfluenza 3 Not detected Normal Not Detected [facility] ([place]) Comment on above: Performed By: #### A MANJULA, CBC, ADIFF, GFR, BMP #### [address] [address] Parainfluenza 4 Not detected Normal Not Detected [facility] ([place]) Comment on above: Performed By: #### A MANJULA, CBC, ADIFF, GFR, BMP #### [address] [address] Respiratory Syncytial Virus Not detected Normal Not Detected [facility] ([place]) Comment on above: Performed By: #### A MANJULA, CBC, ADIFF, GFR, BMP #### [address] [address] Rhinovirus/Enterovirus Not detected Normal Not Detected [facility] ([place]) Comment on above: Performed By: #### A MANJULA, CBC, ADIFF, GFR, BMP #### [address] [address] SARS-CoV-2 (COVID-19) RNA FAUSTO+probe Ql (Unsp spec) Not detected Normal Not Detected [facility] ([place]) Comment on above: Result Comment: This test is being used under the FDA EUA procedure. This assay has been validated in the [facility] for use with nasopharyngeal specimens in [facility]. If a non-validated specimen or [...] A MANJULA, CBC, ADIFF, GFR, BMP #### [place] [address] UAon 12-03-2023 Color (U) Yellow Normal [facility] ([place]) Comment on above: Performed By: #### U A #### [place] [id number] Glucose (U) [Mass/Vol] Negative Normal Negative [facility] ([place]) Comment on above: Performed By: #### U A #### [address] [address] Ketones Ql (U) Negative Normal Negative [facility] ([place]) Comment on above: Performed By: #### U A #### [address] [address] UA Appear Clear Normal Clear [facility] ([place]) Comment on above: Performed By: #### U A #### [place] [id number] UA Blood Negative Normal Negative [facility] ([place]) Comment on above: Performed By: #### U A #### [address] [address] UA Leuk Est Negative Normal Negative [facility] ([place]) Comment on above: Performed By: #### U A #### [address] [address] UA Nitrite Negative Normal Negative [facility]) Comment on above: Performed By: #### U A #### [address] [address] UA pH 7.0 Normal 5.0 - 8.0 [facility] ([place]) Comment on above: Performed By: #### U A #### [address] [address] UA Protein Negative Normal Negative [facility] ([place]) Comment on above: Performed By: #### U A #### [address] [address] UA Spec Grav 1.010 Abnormal 1.015-1.02 5 [facility] ([place]) Comment on above: Performed By: #### U A #### [address] [address] UA Specimen Type Clean Catch Normal [facility] ([place]) Comment on above: Performed By: #### U A #### [address] [address] UA Urobilinogen 0.2 E.U./dL Normal 0.2-1.0 [facility] ([place]) Comment on above: Performed By: #### U A #### [address] [address] Urobilinogen (U) [Mass/Vol] Negative Normal Negative [facility] ([place]) Comment on above: Performed By: #### U A #### [address] [address] .Auto Diffon 12-02-2023 Basophil, Absolute 0.0 10 3/mcL Normal 0.0-0.2 [facility]) Comment on above: Performed By: #### A MANJULA, CBC, ADIFF, GFR, BMP #### [address] [address] Basophils/100 WBC (Bld) 0.9 % Normal 0.0-2.5 [facility] ([place]) Comment on above: Performed By: #### A MANJULA, CBC, ADIFF, GFR, BMP #### [address] [address] Eosinophil, Absolute 0.1 10 3/mcL Normal 0.0-0.4 [facility] ([place]) Comment on above: Performed By: #### A MANJULA, CBC, ADIFF, GFR, BMP #### [address] [address] Eosinophils/100 WBC (Bld) 2.4 % Normal 0.0-7.0 [facility] ([place]) Comment on above: Performed By: #### A MANJULA, CBC, ADIFF, GFR, BMP #### [address] [address] Lymphocyte, Absolute 0.9 10 3/mcL Normal 0.8-3.9 [facility] ([place]) Comment on above: Performed By: #### A MANJULA, CBC, ADIFF, GFR, BMP #### [address] [address] Lymphocytes/100 WBC (Bld) 19.6 % Normal 10.0-50.0 [facility] ([place]) Comment on above: Performed By: #### A MANJULA, CBC, ADIFF, GFR, BMP #### [address] [address] Monocyte, Absolute 0.3 10 3/mcL Normal 0.2-1.0 [facility] ([place]) Comment on above: Performed By: #### A MANJULA, CBC, ADIFF, GFR, BMP #### [address] [address] Monocytes/100 WBC (Bld) 7.0 % Normal 1.7-13.0 [facility] ([place]) Comment on above: Performed By: #### A MANJULA, CBC, ADIFF, GFR, BMP #### [address] [address] Neutrophils/100 WBC (Bld) 70.1 % Normal 37.0-80.0 [facility] ([place]) Comment on above: Performed By: #### A MANJULA, CBC, ADIFF, GFR, BMP #### [address] [address] .GFRon 12-02-2023 GFR 94 ml/min/1.73sqm Normal [facility] ([place]) Comment on above: Result Comment: GFR Population [...] A MANJULA, CBC, ADIFF, GFR, BMP #### [address] [address] GFR Non- 77 ml/min/1.73sqm Normal [facility] ([place]) Comment on above: Result Comment: GFR Population [...] A MANJULA, CBC, ADIFF, GFR, BMP #### [address] [address] .NEUABSon 12-02-2023 Neutrophil, Absolute 3.2 10 3/mcL Normal 2.9-6.2 [facility] ([place]) Comment on above: Performed By: #### A MANJULA, CBC, ADIFF, GFR, BMP #### [address] [address] BMPon 12-02-2023 BUN/Creatinine Ratio 17 ratio Normal 7-27 [facility]) Comment on above: Performed By: #### A MANJULA, CBC, ADIFF, GFR, BMP #### [address] [address] Calcium [Mass/Vol] 8.7 mg/dL Normal 8.4-10.2 [facility] ([place]) Comment on above: Performed By: #### A MANJULA, CBC, ADIFF, GFR, BMP #### [address] [address] Chloride [Moles/Vol] 102 mmol/L Normal 98-107 [facility] ([place]) Comment on above: Performed By: #### A MANJULA, CBC, ADIFF, GFR, BMP #### [address] [address] CO2 [Moles/Vol] 29 mmol/L Normal 23-31 [facility] ([place]) Comment on above: Performed By: #### A MANJULA, CBC, ADIFF, GFR, BMP #### [address] [address] Creatinine [Mass/Vol] 0.72 mg/dL Normal 0.55-1.02 [facility] ([place]) Comment on above: Performed By: #### A MANJULA, CBC, ADIFF, GFR, BMP #### [address] [address] Electrolyte Balance 10.0 mEq/L Normal 4.0-15.0 [facility] ([place]) Comment on above: Performed By: #### A MANJULA, CBC, ADIFF, GFR, BMP #### [address] [address] Glucose [Mass/Vol] 103 mg/dL Normal 83-110 [facility] ([place]) Comment on above: Performed By: #### A MANJULA, CBC, ADIFF, GFR, BMP #### [address] [address] Potassium [Moles/Vol] 4.4 mmol/L Normal 3.5-5.1 [facility] ([place]) Comment on above: Performed By: #### A MANJULA, CBC, ADIFF, GFR, BMP #### [address] [address] Sodium [Moles/Vol] 141 mmol/L Normal 136-145 [facility] ([place]) Comment on above: Performed By: #### A MANJULA, CBC, ADIFF, GFR, BMP #### [place] [id number] Urea nitrogen [Mass/Vol] 12 mg/dL Normal 7-18 [facility]) Comment on above: Performed By: #### A MANJULA, CBC, ADIFF, GFR, BMP #### [address] [address] CBCon 12-02-2023 Erythrocyte distribution width (RBC) [Ratio] 13.3 % Normal 11.5-14.5 [facility] ([place]) Comment on above: Performed By: #### A MANJULA, CBC, ADIFF, GFR, BMP #### [address] [address] Hematocrit (Bld) [Volume fraction] 33.2 % Low 37.0-47.0 [facility] ([place]) Comment on above: Performed By: #### A MANJULA, CBC, ADIFF, GFR, BMP #### [address] [address] Hgb 11.0 G/dL Low 12.0-16.0 [facility] ([place]) Comment on above: Performed By: #### A MANJULA, CBC, ADIFF, GFR, BMP #### [address] [address] MCH (RBC) [Entitic mass] 31.6 pg High 27.0-31.2 [facility] ([place]) Comment on above: Performed By: #### A MANJULA, CBC, ADIFF, GFR, BMP #### [address] [address] MCHC 33.2 G/dL Normal 33.0-37.0 [facility] ([place]) Comment on above: Performed By: #### A MANJULA, CBC, ADIFF, GFR, BMP #### [address] [address] MCV (RBC) [Entitic vol] 95.2 fL High 80.0-94.0 [facility] ([place]) Comment on above: Performed By: #### A MANJULA, CBC, ADIFF, GFR, BMP #### [address] [address] Platelet 319 10 3/mcL Normal 130-400 [facility] ([place]) Comment on above: Performed By: #### A MANJULA, CBC, ADIFF, GFR, BMP #### [address] [address] Platelet mean volume (Bld) [Entitic vol] 7.5 fL Normal 7.4-10.4 [facility] ([place]) Comment on above: Performed By: #### A MANJULA, CBC, ADIFF, GFR, BMP #### [address] [address] RBC 3.49 10 6/mcL Low 4.20-5.40 [facility] ([place]) Comment on above: Performed By: #### A MANJULA, CBC, ADIFF, GFR, BMP #### [address] [address] WBC 4.5 10 3/mcL Low 4.6-10.8 [facility] ([place]) Comment on above: Performed By: #### A MANJULA, CBC, ADIFF, GFR, BMP #### [address] [address] CVFLURVon 12-02-2023 FLU A PCR Negative Normal Negative [facility] ([place]) Comment on above: Performed By: #### A MANJULA, CBC, ADIFF, GFR, BMP #### [address] [address] FLU B PCR Negative Normal Negative [facility] ([place]) Comment on above: Performed By: #### A MANJULA, CBC, ADIFF, GFR, BMP #### [place] [address] [place], [place] [address] RSV PCR Negative Normal Negative [facility] ([place]) Comment on above: Performed By: #### A MANJULA, CBC, ADIFF, GFR, BMP #### [place] [address] [place], [place] [address] SARS-CoV-2 (COVID-19) RNA FAUSTO+probe Ql (Unsp spec) Negative Normal Negative [facility] ([place]) Comment on above: Result Comment: Resu lts [...] A MANJULA, CBC, ADIFF, GFR, BMP #### [address] [address] LABORATORYOrdered By: Mina Pedersen on 12-02-2023 FLUAV [...] Workflow SS Basophil percentageOrdered B y: Kelby Mejiajessica on 11-26-2023 Chloride [Moles/Vol] 100 mmol/L 98-107 [facility] Glucose [Mass/Vol] 117 mg/dL 74-106 [facility] Comment on above: Fasting Glucose resu lt from 100 to 125 mg/dL suggests IMPAIRED HOMEOSTASIS per A.D.A. criteria. Hemoglobin (Bld) [Mass/Vol] 11.2 g/dL 12.0-15.0 [facility] Potassium [Moles/Vol] 3.3 mmol/L 3.5-5.1 [facility] Sodium [Moles/Vol] 135 mmol/L 136-145 [facility] WBC (Bld) [#/Vol] 6.1 10*3/uL 4.4-11.0 [facility] Determination of erythrocyte mean corpuscular volume (MCV)Ordered By: Kelby Aguilar on 11-26-2023 MCV (RBC) [Entitic vol] 98.1 fL 81-99 [facility] Erythrocyte distribution wid th ratioOrdered By: Kelby Aguilar on 11-26-2023 Erythrocyte distribution width (RBC) [Ratio] 13.2 % 11.6-14.6 [facility] Erythrocyte distribution wid th standard deviationOrdered By: Kelby Aguilar on 11-26-2023 Erythrocyte distribution width (RBC) [Entitic vol] 47.1 fL 35.1-43.9 [facility] Hematocrit Auto (Bld) [Volum e fraction]Ordered By: Kelby Aguilar on 11-26-2023 Hematocrit (Bld) [Volume fraction] 35.4 % 37-47 [facility] Laboratory - Chemistry and C hemistry - challengeOrdered By: Kelby Aguilar on 11-26-2023 CO2 [Moles/Vol] 27.0 mmol/L 21.0-32.0 [facility] Urea nitrogen/Creatinine [Mass ratio] 17.1 mg/mg 10-20 [facility] Laboratory - Hematology and Cell countsOrdered By: Kelby Aguilar on 11-26-2023 MCH (RBC) [Entitic mass] 31.0 pg 27.0-32.0 [facility] MCHC (RBC) [Mass/Vol] 31.6 g/dL 32-36 [facility] Platelet mean volume (Bld) [Entitic vol] 10.3 fL 6.2-12.0 [facility] Platelets (Bld) [#/Vol] 215 10*3/uL 150-450 [facility] No Panel InformationOrdered By: Kelby Aguilar on 11-26-2023 Estimated Creatinine Clearance Calc 48.91 ml/min [facility] Estimated GFR (MDRD) Amer 102 mL/min >60 [facility] Comment on above: GFR Calc Estimated GFR (MDRD) Non-Af Amer 84 mL/min >60 [facility] Comment on above: Non- GFR Calc RBC Auto (Bld) [#/Vol]Ordere d By: Kelby Aguilar on 11-26-2023 RBC (Bld) [#/Vol] 3.61 10*6/uL 4.2-5.4 [facility] Serum or plasma calcium nina urement (mass/volume)Ordered By: Kelby Aguilar on 11-26-2023 Calcium [Mass/Vol] 8.6 mg/dL 8.5-10.1 [facility] Serum or plasma creatinine m easurement (mass/volume)Ordered By: Kelby Aguilar on 11-26-2023 Creatinine [Mass/Vol] 0.70 mg/dL 0.55-1.02 [facility] Comment on above: The validity of the calculated GFR & GFRAA in patients over 70 years has not been determined. Clinical correlation is essential. Serum or plasma urea nitroge n measurement (mass/volume)Ordered By: Kelby Aguilar on 11-26-2023 Urea nitrogen [Mass/Vol] 12 mg/dL 7-18 [facility] Thin prep Papanicolaou smear with manual screeningOrdered By: Kelby Aguilar on 11-26-2023 Thin prep Papanicolaou smear with manual screening 8 5-15 [facility] Laboratory - Chemistry and C hemistry - challengeOrdered By: Kelby Aguilar on 11-25-2023 CK [Catalytic activity/Vol] 1138 U/L 26-192 [facility] Absolute lymphocyte countOrd ered By: Smith Ho on 11-23-2023 Lymphocytes Auto (Unsp spec) [#/Vol] 1.14 10*3/uL 0.83-4.51 [facility] Automated lymphocyte count a s percentage of total leukocytesOrdered By: Smith Ho on 11-23-2023 Lymphocytes/100 WBC Auto (Unsp spec) 12.9 % 19-41 [facility] Basophil percentageOrdered B y: Smith Ho on 11-23-2023 Basophil percentage 10-25 SEEN /hpf 0-5 [facility] Basophils/100 WBC (Bld) 0.5 % 0-1 [facility] Chloride [Moles/Vol] 107 mmol/L 98-107 [facility] Eosinophils/100 WBC (Bld) 0.1 % 0-5 [facility] Glucose [Mass/Vol] 122 mg/dL 74-106 [facility] Comment on above: Fasting Glucose resu lt from 100 to 125 mg/dL suggests IMPAIRED HOMEOSTASIS per A.D.A. criteria. Hemoglobin (Bld) [Mass/Vol] 12.3 g/dL 12.0-15.0 [facility] Monocytes/100 WBC (Bld) 9.0 % 0-10 [facility] Neutrophils (Bld) [#/Vol] 6.8 10*3/uL 2.0-7.7 [facility] Neutrophils/100 WBC (Bld) 77.0 % 47-70 [facility] Potassium [Moles/Vol] 3.8 mmol/L 3.5-5.1 [facility] Sodium [Moles/Vol] 141 mmol/L 136-145 [facility] WBC (Bld) [#/Vol] 8.8 10*3/uL 4.4-11.0 [facility] Bilirubin Test strip Ql (U)O rdered By: Smith Ho on 11-23-2023 Bilirubin Ql (U) Negative Negative [facility] Culture, urineOrdered By: Deandre Ho on 11-23-2023 Bacteria identified Cx Nom (U) Presumptive E. coli [facility] Determination of erythrocyte mean corpuscular volume (MCV)Ordered By: Smith Ho on 11-23-2023 MCV (RBC) [Entitic vol] 96.9 fL 81-99 [facility] Erythrocyte distribution wid th ratioOrdered By: Smith Ho on 11-23-2023 Erythrocyte distribution width (RBC) [Ratio] 13.3 % 11.6-14.6 [facility] Erythrocyte distribution wid th standard deviationOrdered By: Smith Ho on 11-23-2023 Erythrocyte distribution width (RBC) [Entitic vol] 47.7 fL 35.1-43.9 [facility] Hematocrit Auto (Bld) [Volum e fraction]Ordered By: Smith Ho on 11-23-2023 Hematocrit (Bld) [Volume fraction] 37.9 % 37-47 [facility] Immature granulocytes/100 WB C Auto (Bld)Ordered By: Smith Ho on 11-23-2023 Immature granulocytes/100 WBC (Bld) 0.500 % 0.0-0.9 [facility] Comment on above: IG% - Immature Granu locytes (promyelocytes, myelocytes and metamyelocytes) > 1% indicates that a LEFT SHIFT is Present. Ketones Test strip Ql (U)Ord ered By: Smith Ho on 11-23-2023 Ketones Ql (U) 5 mg/dl Negative [facility] Laboratory - Chemistry and C hemistry - challengeOrdered By: Smith Ho on 11-23-2023 CK [Catalytic activity/Vol] 2446 U/L 26-192 [facility] CO2 [Moles/Vol] 27.0 mmol/L 21.0-32.0 [facility] Urea nitrogen/Creatinine [Mass ratio] 24.1 mg/mg 10-20 [facility] Laboratory - Hematology and Cell countsOrdered By: Smith Ho on 11-23-2023 MCH (RBC) [Entitic mass] 31.5 pg 27.0-32.0 [facility] MCHC (RBC) [Mass/Vol] 32.5 g/dL 32-36 [facility] Nucleated RBC/100 WBC (Bld) [Ratio] 0 % 0-5 [facility] Platelet mean volume (Bld) [Entitic vol] 9.9 fL 6.2-12.0 [facility] Platelets (Bld) [#/Vol] 192 10*3/uL 150-450 [facility] Mucus LM Ql (Urine sed)Order ed By: Smith Ho on 11-23-2023 Mucus Ql (Urine sed) 1+ /hpf [facility] Nitrite Test strip Ql (U)Ord ered By: Smith Ho on 11-23-2023 Nitrite Ql (U) Positive Negative [facility] No Panel InformationOrdered By: Smith Ho on 11-23-2023 Urine RBC 0-5 SEEN /hpf 0-5 [facility] Estimated Creatinine Clearance Calc 50.43 ml/min [facility] Estimated GFR (MDRD) Amer 95 mL/min >60 [facility] Comment on above: GFR Calc Estimated GFR (MDRD) Non-Af Amer 79 mL/min >60 [facility] Comment on above: Non- GFR Calc Protein Test strip Ql (U)Ord ered By: Smith Ho on 11-23-2023 Protein Ql (U) 30 mg/dl Negative [facility] RBC Auto (Bld) [#/Vol]Ordere d By: Smith Ho on 11-23-2023 RBC (Bld) [#/Vol] 3.91 10*6/uL 4.2-5.4 [facility] Serum or plasma calcium nina urement (mass/volume)Ordered By: Smith Ho on 11-23-2023 Calcium [Mass/Vol] 9.4 mg/dL 8.5-10.1 [facility] Serum or plasma creatinine m easurement (mass/volume)Ordered By: Smith Ho on 11-23-2023 Creatinine [Mass/Vol] 0.75 mg/dL 0.55-1.02 [facility] Comment on above: The validity of the calculated GFR & GFRAA in patients over 70 years has not been determined. Clinical correlation is essential. Serum or plasma thyroid stim ulating hormone (TSH) measurement (units/volume)Ordered By: Kelby Aguilar on 11-23-2023 TSH Qn 1.59 uIU/mL 0.358-3.74 [facility] Serum or plasma urea nitroge n measurement (mass/volume)Ordered By: Smith Ho on 11-23-2023 Urea nitrogen [Mass/Vol] 18 mg/dL 7-18 [facility] Squamous epithelial cells de tection in urine sediment by light microscopyOrdered By: Smith Ho on 11-23-2023 Epithelial cells.squamous LM Ql (Urine sed) 0-5 SEEN /hpf 5-10 [facility] Thin prep Papanicolaou smear with manual screeningOrdered By: Smith Ho on 11-23-2023 Thin prep Papanicolaou smear with manual screening 7 5-15 [facility] Urine blood detectionOrdered By: Smith Ho on 11-23-2023 RBC Ql (U) 250 /ul Negative [facility] Urine clarityOrdered By: Migue Ho on 11-23-2023 Clarity (U) Cloudy Clear [facility] Urine color determinationOrd ered By: Smith Ho on 11-23-2023 Color (U) Yellow Yellow [facility] Urine glucose detectionOrder ed By: Smith Ho on 11-23-2023 Glucose Ql (U) Normal mg/dl Normal [facility] Urine leukocyte esterase det ection by dipstickOrdered By: Smith Ho on 11-23-2023 Leukocyte esterase Test strip Ql (U) 500 /ul Negative [facility] Urine pHOrdered By: Smith Zaldivar gharanza on 11-23-2023 pH (U) 6.0 [pH] 5.0 - 8.0 [facility] Urine sediment bacteria coun t by microscopy (number/high power field)Ordered By: Smith Ho on 11-23-2023 Bacteria LM.HPF (Urine sed) [#/Area] 4 /[HPF] None Seen [facility] Urine specific gravity measu rementOrdered By: Smith oH on 11-23-2023 Specific gravity (U) [Rel density] 1.010 1.002-1.03 0 [facility] Urine urobilinogen measureme ntOrdered By: Smith Ho on 11-23-2023 Urobilinogen Ql (U) Normal mg/dl Normal [facility] CNPNon 08-22-2023 CNPN Normal [facility] CBC W Auto Differential pane l (Bld)on 08-18-2023 Basophils (Bld) [#/Vol] 0.08 10*3/uL Normal <0.11 [facility] Comment on above: Order Comment: Speci men Type: BLOOD SPECIMENOrdering Facility: [facility] Address: [address] [place] [address] Performed By: #### 5 7021-8 ####[facility] [id number] [place] [address] [place] Basophils/100 WBC (Bld) 1.3 % Normal [facility] Comment on above: Order Comment: Speci men Type: BLOOD SPECIMENOrdering Facility: [facility] Address: [address] [place] [address] Performed By: #### 5 7021-8 ####[facility] [id number] [place] [address] [place] Differential cell count method Nom (Bld) Auto Normal [facility] Comment on above: Order Comment: Speci men Type: BLOOD SPECIMENOrdering Facility: [facility] Address: [address] [place] [address] Performed By: #### 5 7021-8 ####[facility] [id number] [place] [address] [place] Eosinophils (Bld) [#/Vol] 0.21 10*3/uL Normal <0.46 [facility] Comment on above: Order Comment: Speci men Type: BLOOD SPECIMENOrdering Facility: [facility] Address: [address] [place] [address] Performed By: #### 5 7021-8 ####[facility] [id number] [place] [address] [place] Eosinophils/100 WBC (Bld) 3.4 % Normal [facility] Comment on above: Order Comment: Speci men Type: BLOOD SPECIMENOrdering Facility: [facility] Address: [address] [place] [address] Performed By: #### 5 7021-8 ####[facility] [id number] [place] [address] [place] Erythrocyte distribution width (RBC) [Ratio] 15.9 % High 11.5-15.0 [facility] Comment on above: Order Comment: Speci men Type: BLOOD SPECIMENOrdering Facility: [facility] Address: [address] [place] [address] Performed By: #### 5 7021-8 ####[facility] [id number] [place] [address] [place] Hematocrit (Bld) [Volume fraction] 40.1 % Normal 36.0-46.0 [facility] Comment on above: Order Comment: Speci men Type: BLOOD SPECIMENOrdering Facility: [facility] Address: [address] [place] [address] Performed By: #### 5 7021-8 ####[facility] [id number] [place] [address] [place] Hemoglobin (Bld) [Mass/Vol] 12.7 g/dL Normal 11.5-15.5 [facility] Comment on above: Order Comment: Speci men Type: BLOOD SPECIMENOrdering Facility: [facility] Address: [address] [place] [address] Performed By: #### 5 7021-8 ####[facility] [id number] [place] [address] [place] Immature granulocytes (Bld) [#/Vol] 10*3/uL Normal <0.10 [facility] Comment on above: Order Comment: Speci men Type: BLOOD SPECIMENOrdering Facility: [facility] Address: [address] [place] [address] Performed By: #### 5 7021-8 ####[facility] [id number] [place] [address] [place] Immature granulocytes/100 WBC (Bld) 0.2 % Normal [facility] Comment on above: Order Comment: Speci men Type: BLOOD SPECIMENOrdering Facility: [facility] Address: [address] [place] [address] Performed By: #### 5 7021-8 ####[facility] [id number] [place] [address] [place] Lymphocytes (Bld) [#/Vol] 2.16 10*3/uL Normal 1.00-4.00 [facility] Comment on above: Order Comment: Speci men Type: BLOOD SPECIMENOrdering Facility: [facility] Address: [address] [place] [address] Performed By: #### 5 7021-8 ####[facility] [id number] [place] [address] [place] Lymphocytes/100 WBC (Bld) 35.0 % Normal [facility] Comment on above: Order Comment: Speci men Type: BLOOD SPECIMENOrdering Facility: [facility] Address: [address] [place] [address] Performed By: #### 5 7021-8 ####[facility] MILLWNCLIA [id number] [place] [address] [place] [facility] MCH (RBC) [Entitic mass] 31.5 pg Normal 26.0-34.0 [facility] Comment on above: Order Comment: Speci men Type: BLOOD SPECIMENOrdering Facility: [facility] Address: [address] [place] [address] Performed By: #### 5 7021-8 ####[facility] [id number] [place] [address] [place] MCHC (RBC) [Mass/Vol] 31.7 g/dL Normal 30.5-36.0 [facility] Comment on above: Order Comment: Speci men Type: BLOOD SPECIMENOrdering Facility: [facility] Address: [address] [place] [address] Performed By: #### 5 7021-8 ####[facility]ITALNCA [id number] [place] [address] [place] MCV (RBC) [Entitic vol] 99.5 fL Normal 80.0-100.0 [facility] Comment on above: Order Comment: Speci men Type: BLOOD SPECIMENOrdering Facility: [facility] Address: [address] [place] [address] Performed By: #### 5 7021-8 ####[facility] [id number] [place] [address] [place] Monocytes (Bld) [#/Vol] 0.47 10*3/uL Normal <0.87 [facility] Comment on above: Order Comment: Speci men Type: BLOOD SPECIMENOrdering Facility: [facility] Address: [address] [place] [address] Performed By: #### 5 7021-8 ####[facility] [id number] [place] [address] [place] Monocytes/100 WBC (Bld) 7.6 % Normal [facility] Comment on above: Order Comment: Speci men Type: BLOOD SPECIMENOrdering Facility: [facility] Address: [address] [place] [address] Performed By: #### 5 7021-8 ####[facility] [id number] [place] [address] [place] Neutrophils (Bld) [#/Vol] 3.24 10*3/uL Normal 1.45-7.50 [facility] Comment on above: Order Comment: Speci men Type: BLOOD SPECIMENOrdering Facility: [facility] Address: [address] [place] [address] Performed By: #### 5 7021-8 ####[facility] [id number] [place] [address] [place] Neutrophils/100 WBC (Bld) 52.5 % Normal [facility] Comment on above: Order Comment: Speci men Type: BLOOD SPECIMENOrdering Facility: [facility] Address: [address] [place] [address] Performed By: #### 5 7021-8 ####[facility] [id number] [place] [address] [place] Nucleated RBC (Bld) [#/Vol] 10*3/uL Normal <0.01 [facility] Comment on above: Order Comment: Speci men Type: BLOOD SPECIMENOrdering Facility: [facility] Address: [address] [place] [address] Performed By: #### 5 7021-8 ####[facility] [id number] [place] [address] [place] Nucleated RBC/100 WBC (Bld) [Ratio] 0.0 /100 WBC Normal [facility] Comment on above: Order Comment: Speci men Type: BLOOD SPECIMENOrdering Facility: [facility] Address: [address] [place] [address] Performed By: #### 5 7021-8 ####[facility] VIPINNCFARZANA [id number] [place] [address] [place] Platelet mean volume (Bld) [Entitic vol] 10.0 fL Normal 9.0-12.7 [facility] Comment on above: Order Comment: Speci men Type: BLOOD SPECIMENOrdering Facility: [facility] Address: [address] [place] [address] Performed By: #### 5 7021-8 ####[facility]ITALNCFARZANA [id number] [place] [address] [place] Platelets (Bld) [#/Vol] 272 10*3/uL Normal 150-400 [facility] Comment on above: Order Comment: Speci men Type: BLOOD SPECIMENOrdering Facility: [facility] Address: [address] [place] [address] Performed By: #### 5 7021-8 ####[facility]ITALNCL[facility] [id number] [place] [address] [place] RBC (Bld) [#/Vol] 4.03 10*6/uL Normal 3.90-5.20 [facility] Comment on above: Order Comment: Speci men Type: BLOOD SPECIMENOrdering Facility: [facility] Address: [address] [place] [address] Performed By: #### 5 7021-8 ####[facility]ITALNCL[facility] [id number] [place] [address] [place] WBC (Bld) [#/Vol] 6.17 10*3/uL Normal 3.70-11.00 [facility] Comment on above: Order Comment: Speci men Type: BLOOD SPECIMENOrdering Facility: [facility] Address: [address] [place] [address] Performed By: #### 5 7021-8 ####[facility]ITALNCLIA [id number] [place] [address] [place] CNOVon 08-18-2023 CNOV Normal [facility] Cancer Ag125 SerPl-aCncon Cancer Ag 125 Qn 6 [arb'U]/mL Normal <39 [facility] Comment on above: Order Comment: Speci men Type: BLOOD SPECIMENOrdering Facility: [facility] Address: [place] [address] Result Comment: CA 1 25 test methodology [...] (CA 125 II) [package insert V 1.0 Moldovan]. [employer], [place], [place] (May 2015) Performed By: #### 3 016-3, LIPNF, 73868-7 ####[facility] LABCLIA [id number] [address] [place]#### 19722-3 ####[facility]ITALNCLIA [id number] [place] [address] [place] Comprehensive metabolic 2000 panelon 08-18-2023 Albumin [Mass/Vol] 4.9 g/dL Normal 3.9-4.9 [facility] Comment on above: Order Comment: Speci men Type: BLOOD SPECIMENOrdering Facility: [facility] Address: [place] [address] Performed By: #### 3 016-3, LIPNF, 93307-8 ####[facility] LABCLIA [id number] [address] [place]#### 22906-7 ####[facility] MILLWNCLIA [id number] [place] [address] [place] ALP [Catalytic activity/Vol] 108 U/L Normal 34-123 [facility] Comment on above: Order Comment: Speci men Type: BLOOD SPECIMENOrdering Facility: [facility] Address: [address] [place] [address] Performed By: #### 3 016-3, LIPNF, 15442-5 ####[facility] LABCLIA [id number] [place] [address] [place]#### 32593-1 ####[facility]ITALNCL[facility] [id number] [place] [address] [place] ALT [Catalytic activity/Vol] 17 U/L Normal 7-38 [facility] Comment on above: Order Comment: Speci men Type: BLOOD SPECIMENOrdering Facility: [facility] Address: [address] [place] [address] Performed By: #### 3 016-3, LIPNF, 72204-3 ####[facility] LABCLIA [id number] [place] [address] [place]#### 76565-5 ####[facility]CL[facility] [id number] [place] [address] [place] Anion gap [Moles/Vol] 12 mmol/L Normal 9-18 [facility] Comment on above: Order Comment: Speci men Type: BLOOD SPECIMENOrdering Facility: [facility] Address: [address] [place] [address] Performed By: #### 3 016-3, LIPNF, 62731-9 ####[facility] LABCLIA [id number] [place] [address] [place]#### 71538-4 ####[facility] MILLTOWNCLIA [id number] [place] [address] [place] AST [Catalytic activity/Vol] 25 U/L Normal 13-35 [facility] Comment on above: Order Comment: Speci men Type: BLOOD SPECIMENOrdering Facility: [facility] Address: [address] [place] [address] Performed By: #### 3 016-3, LIPNF, 20493-2 ####[facility] LABCLIA [id number] [place] [address] [place]#### 81700-5 ####[facility] MILLWNCLIA [id number] [place] [address] [place] Bilirubin [Mass/Vol] 0.4 mg/dL Normal 0.2-1.3 [facility] Comment on above: Order Comment: Speci men Type: BLOOD SPECIMENOrdering Facility: [facility] Address: [address] [place] [address] Performed By: #### 3 016-3, LIPNF, 15304-9 ####[facility] LABCLIA [id number] [place] [address] [place]#### 59290-8 ####[facility]ITALWNCL[facility] [id number] [place] [address] [place] Calcium [Mass/Vol] 9.8 mg/dL Normal 8.5-10.2 [facility] Comment on above: Order Comment: Speci men Type: BLOOD SPECIMENOrdering Facility: [facility] Address: [address] [place] [address] Performed By: #### 3 016-3, LIPNF, 47023-3 ####[facility] LABCLIA [id number] [place] [address] [place]#### 01983-4 ####[facility]OWNCL[facility] [id number] [place] [address] [place] Chloride [Moles/Vol] 99 mmol/L Normal 97-105 [facility] Comment on above: Order Comment: Speci men Type: BLOOD SPECIMENOrdering Facility: [facility] Address: [address] [place] [address] Performed By: #### 3 016-3, LIPNF, 92144-7 ####[facility] LABCLIA [id number] [place] [address] [place]#### 37767-0 ####[facility] MILLTOWNCLIA [id number] [place] [address] [place] CO2 [Moles/Vol] 26 mmol/L Normal 22-30 [facility] Comment on above: Order Comment: Speci men Type: BLOOD SPECIMENOrdering Facility: [facility] Address: [address] [place] [address] Performed By: #### 3 016-3, LIPNF, 86816-5 ####[facility] LABCLIA [id number] [place] [address] [place]#### 55243-3 ####[facility] MILLTOWNCLIA [id number] [place] [address] [place] Creatinine [Mass/Vol] 0.72 mg/dL Normal 0.58-0.96 [facility] Comment on above: Order Comment: Speci men Type: BLOOD SPECIMENOrdering Facility: [facility] Address: [address] [place] [address] Performed By: #### 3 016-3, LIPNF, 00348-1 ####[facility] LABCLIA [id number] [place] [address] [place]#### 27721-7 ####[facility] [id number] [place] [address] [place] Creatinine and Glomerular filtration rate.predicted panel (S/P/Bld) 83 mL/min/1.73m??? Normal >=60 [facility] Comment on above: Order Comment: Zay sandoval Type: BLOOD SPECIMENOrdering Facility: [facility] Address: [address] [place] [address] Result Comment: Marlyn ackerman Glomerular Filtration Rate (eGFR) is calculated using [...] GFR. Performed By: #### 3 016-3, LIPNF, 50004-2 ####[facility] LABCLIA [id number] [facility] [address] [place]#### 96111-5 ####[facility] [id number] [place] [address] [place] Glucose [Mass/Vol] 112 mg/dL High 74-99 [facility] Comment on above: Order Comment: Zay sandoval Type: BLOOD SPECIMENOrdering Facility: [facility] Address: [address] [place] [address] Result Comment: The [place] [employer] (ADA) provides guidance for cutoff [...] Standards of Medical Care in Diabetes 2016, [place] [employer]. Diabetes Care. 2016.39(Suppl 1). Performed By: #### 3 016-3, LIPNF, 47803-8 ####[facility] LABCLIA [id number] [place] [address] [place]#### 76449-6 ####[facility] MILLTOWNCLIA [id number] [place] [address] [place] Potassium [Moles/Vol] 4.3 mmol/L Normal 3.7-5.1 [facility] Comment on above: Order Comment: Speci men Type: BLOOD SPECIMENOrdering Facility: [facility] Address: [address] [place] [address] Performed By: #### 3 016-3, LIPNF, 71219-1 ####[facility] LABCLIA [id number] [place] [address] [place]#### 49189-8 ####[facility] MILLWNCLIA [id number] [place] [address] [place] Protein [Mass/Vol] 8.7 g/dL High 6.3-8.0 [facility] Comment on above: Order Comment: Speci men Type: BLOOD SPECIMENOrdering Facility: [facility] Address: [address] [place] [address] Performed By: #### 3 016-3, LIPNF, 66684-3 ####[facility] LABCLIA [id number] [place] [address] [place]#### 38598-6 ####[facility] MILLWNCLIA [id number] [place] [address] [place] Sodium [Moles/Vol] 137 mmol/L Normal 136-144 [facility] Comment on above: Order Comment: Speci men Type: BLOOD SPECIMENOrdering Facility: [facility] Address: [address] [place] [address] Performed By: #### 3 016-3, LIPNF, 14285-2 ####[facility] LABCLIA [id number] [place] [address] [place]#### 78375-4 ####[facility]ITALWNCLIA [id number] [place] [address] [place] Urea nitrogen [Mass/Vol] 18 mg/dL Normal 7-21 [facility] Comment on above: Order Comment: Speci men Type: BLOOD SPECIMENOrdering Facility: [facility] Address: [address] [place] [address] Performed By: #### 3 016-3, LIPNF, 46490-0 ####[facility] LABCLIA [id number] [place] [address] [place]#### 01361-9 ####[facility] [id number] [place] [address] [place] LIPID PANEL, NONFASTINGon Cholesterol [Mass/Vol] 201 mg/dL High <200 [facility] Comment on above: Order Comment: Speci men Type: BLOOD SPECIMENOrdering Facility: [facility] Address: [address] [place] [address] Result Comment: <200 mg/dL, Desirable 200-239 mg/dL, Borderline high>239 mg/dL, High Performed By: #### 3 016-3, LIPNF, 23818-3 ####[facility] LABCLIA [id number] [place] [address] [place]#### 88690-0 ####[facility] [id number] [place] [address] [place] HDL CHOLESTEROL, NF 81 mg/dL Normal >39 [facility] Comment on above: Order Comment: Speci men Type: BLOOD SPECIMENOrdering Facility: [facility] Address: [address] [place] [address] Result Comment: 40-5 9 mg/dL, Acceptable>59 mg/dL, High: Negative risk factor for coronary heart disease<40 mg/dL, Low: Positive risk factor for coronary heart disease Performed By: #### 3 016-3, LIPNF, 29757-7 ####[facility] LABCLIA [id number] [place] [address] [place]#### 40561-2 ####[facility] [id number] [place] [address] [place] LDL CHOLESTEROL, NF 96 mg/dL Normal <100 [facility] Comment on above: Order Comment: Speci men Type: BLOOD SPECIMENOrdering Facility: [facility] Address: [address] [place] [address] Result Comment: <100 mg/dL, Optimal 100-129 mg/dL, Near optimal/above optimal 130-159 mg/dL, Borderline high 160-189 mg/dL, High>189 mg/dL, Very highSecondary prevention optimal LDL Cholesterol levels are recommended to be < 70 mg/dL Performed By: #### 3 016-3, LIPNF, 04453-0 ####[facility] LABCLIA [id number] [place] [address] [place]#### 60459-2 ####[facility]IT[facility] [id number] [place] [address] [place] LDL/HDL RATIO, NF 1.19 mg/dL Normal <2.54 [facility] Comment on above: Order Comment: Speci men Type: BLOOD SPECIMENOrdering Facility: [facility] Address: [address] [place] [address] Result Comment: Refe rence:1. National Cholesterol Education Program ATP III Guideline At-A-Glance Quick Desk Reference: National Heart, Lung, and Blood Primrose. National Institutes of Health. 2001: NIH Publication No. 01-3305.2. An International Atherosclerosis Society position paper: global recommendations for the management of dyslipidemia: executive summary, Atherosclerosis. 2014: 232(2):410-413. Performed By: #### 3 016-3, LIPNF, 05716-4 ####[facility] LABCLIA [id number] [place] [address] [place]#### 79764-3 ####[facility] MILLTOWNCLIA [id number] [place] [address] [place] NON HDL CHOL, NF 120 mg/dL Normal <130 [facility] Comment on above: Order Comment: Speci men Type: BLOOD SPECIMENOrdering Facility: [facility] Address: [address] [place] [address] Result Comment: <130 mg/dL, Optimal 130-159 mg/dL, Near optimal/above optimal 160-189 mg/dL, Borderline high 190-219 mg/dL, High>219 mg/dL, Very highSecondary prevention optimal non HDL Cholesterol levels are recommended to be <100 mg/dL Performed By: #### 3 016-3, LIPNF, 34369-5 ####[facility] LABCLIA [id number] [place] [address] [place]#### 81072-5 ####[facility] MILLTOWNCLIA [id number] [address] [place] T CHOL/HDL RATIO NF 2.48 mg/dL Normal <5.10 [facility] Comment on above: Order Comment: Speci men Type: BLOOD SPECIMENOrdering Facility: [facility] Address: [address] [place] [address] Performed By: #### 3 016-3, LIPNF, 54779-2 ####[facility] LABCLIA [id number] [place] [address] [place]#### 84593-8 ####[facility] MILLTOWNCLIA [id number] [place] [address] [place] TRIGLYCERIDES, NF 118 mg/dL Normal <150 [facility] Comment on above: Order Comment: Speci men Type: BLOOD SPECIMENOrdering Facility: [facility] Address: [address] [place] [address] Result Comment: <150 mg/dL, Normal 150-199 mg/dL, Borderline high 200-499 mg/dL, High>499 mg/dL, Very high Performed By: #### 3 016-3, LIPNF, 15205-9 ####[facility] LABCLIA [id number] [place] [address] [place]#### 55301-6 ####[facility] [id number] [place] [address] [place] VLDL CHOLESTEROL, NF 24 mg/dL Normal <30 [facility] Comment on above: Order Comment: Speci men Type: BLOOD SPECIMENOrdering Facility: [facility] Address: [address] [place] [address] Performed By: #### 3 016-3, LIPNF, 59393-9 ####[facility] LABCLIA [id number] [place] [address] [place] [place]#### 80564-9 ####[facility] MILLWNCLIA [id number] [place] [address] [place] Magnesium SerPl-mCncon 08-18 Magnesium [Mass/Vol] 2.2 mg/dL Normal 1.7-2.3 [facility] Comment on above: Order Comment: Speci men Type: BLOOD SPECIMENOrdering Facility: [facility] Address: [address] [place] [address] Performed By: #### 1 9123-9 ####[facility]PITALWNCLIA [id number] [address] [place] PAIN PANEL, UR QUANTon 08-18 9-Cyqsxgehbd-3,5-Dimet hyl-3,3-Diphenylpyrrol idine (EDDP) Confirm (U) [Mass/Vol] <6 Normal <6 [facility] Comment on above: Order Comment: Speci men Type: URINE SPECIMENOrdering Facility: [facility] Address: [address] [place] [address] Result Comment: EDDP is a metabolite of methadone. Performed By: #### L [id number] ####[facility] LABIA [id number] [address] [place] 6-Monoacetylmorphine (6-SUNNI) (U) [Mass/Vol] <5 Normal <5 [facility] Comment on above: Order Comment: Speci men Type: URINE SPECIMENOrdering Facility: [facility] Address: [address] [place] [address] Result Comment: 6-MA M (6-monoacetylmorphine, also known as 6-acetylmorphine) is a unique metabolite of heroin. Presence of 6-SUNNI indicates use of heroin. 6-SUNNI is further metabolized to morphine and absence of 6-SUNNI does not rule out the use of heroin. Performed By: #### L [id number] ####[facility] LABIA [id number] [place] [address] [place] Amphetamine Confirm (U) [Mass/Vol] <5 Normal <5 [facility] Comment on above: Order Comment: Speci men Type: URINE SPECIMENOrdering Facility: [facility] Address: [address] [place] [address] Performed By: #### L [id number] ####[facility] LABIA [id number] [place] [address] [place] Benzoylecgonine Confirm (U) [Mass/Vol] <24 Normal <24 [facility] Comment on above: Order Comment: Speci men Type: URINE SPECIMENOrdering Facility: [facility] Address: [address] [place] [address] Result Comment: Kenneth oylecgonine is a metabolite of cocaine. Performed By: #### L [id number] ####[facility] [id number] [place] [address] [place] Buprenorphine (U) [Mass/Vol] <20 Normal <20 [facility] Comment on above: Order Comment: Speci men Type: URINE SPECIMENOrdering Facility: [facility] Address: [address] [place] [address] Performed By: #### L [id number] ####[facility] [id number] [place] [address] [place] Cannabinoids Confirm (U) [Mass/Vol] <16 Normal <16 [facility] Comment on above: Order Comment: Speci men Type: URINE SPECIMENOrdering Facility: [facility] Address: [address] [place] [address] Result Comment: Tetr ahydrocannabinol carboxylic acid (THCA) is a metabolite of nleno-0-gtxfcqegqrnntvwkrczn which is the main active component of marijuana. Performed By: #### L [id number] ####[facility] [id number] [place] [address] [place] Codeine Confirm (U) [Mass/Vol] <11 Normal <11 [facility] Comment on above: Order Comment: Speci men Type: URINE SPECIMENOrdering Facility: [facility] Address: [address] [place] [address] Performed By: #### L [id number] ####[facility] [id number] [place] [address] [place] Dihydrocodeine Confirm (U) [Mass/Vol] <5 Normal <5 [facility] Comment on above: Order Comment: Speci men Type: URINE SPECIMENOrdering Facility: [facility] Address: [address] [place] [address] Performed By: #### L [id number] ####[facility] LABCLIA [id number] [place] [address] [place] fentaNYL Confirm (U) [Mass/Vol] <6 Normal <6 [facility] Comment on above: Order Comment: Speci men Type: URINE SPECIMENOrdering Facility: [facility] Address: [address] [place] [address] Performed By: #### L [id number] ####[facility] H[facility]PITALIA [id number] [place] [address] [place] HYDROcodone Confirm (U) [Mass/Vol] <8 Normal <8 [facility] Comment on above: Order Comment: Speci men Type: URINE SPECIMENOrdering Facility: [facility] Address: [address] [place] [address] Result Comment: Hydr ocodone is a metabolite of dihydrocodeine. Performed By: #### L [id number] ####[facility] [id number] [place] [address] [place] HYDROmorphone Confirm (U) [Mass/Vol] <5 Normal <5 [facility] Comment on above: Order Comment: Speci men Type: URINE SPECIMENOrdering Facility: [facility] Address: [address] [place] [address] Result Comment: Hydr omorphone is a metabolite of hydrocodone. Performed By: #### L [id number] ####[facility] LABIA [id number] [place] [address] [place] Methadone Confirm (U) [Mass/Vol] <16 Normal <16 [facility] Comment on above: Order Comment: Speci men Type: URINE SPECIMENOrdering Facility: [facility] Address: [address] [place] [address] Performed By: #### L [id number] ####[facility] LABIA [id number] [place] [address] [place] Methamphetamine Confirm (U) [Mass/Vol] <8 Normal <8 [facility] Comment on above: Order Comment: Speci men Type: URINE SPECIMENOrdering Facility: [facility] Address: [address] [place] [address] Performed By: #### L [id number] ####[facility] LABIA [id number] [place] [address] [place] Morphine Confirm (U) [Mass/Vol] <10 Normal <10 [facility] Comment on above: Order Comment: Speci men Type: URINE SPECIMENOrdering Facility: [facility] Address: [address] [place] [address] Result Comment: Morp shahida is a metabolite of codeine and heroin. Performed By: #### L [id number] ####[facility] LABIA [id number] [place] [address] [place] Norbuprenorphine (U) [Mass/Vol] <20 Normal <20 [facility] Comment on above: Order Comment: Speci men Type: URINE SPECIMENOrdering Facility: [facility] Address: [address] [place] [address] Result Comment: Norb uprenorphine is the primary active metabolite of buprenorphine. Performed By: #### L [id number] ####[facility] LABBR[facility] [id number] [place] [address] [place] Norfentanyl Confirm (U) [Mass/Vol] <6 Normal <6 [facility] Comment on above: Order Comment: Speci men Type: URINE SPECIMENOrdering Facility: [facility] Address: [address] [place] [address] Result Comment: Norf entanyl is a metabolite of fentanyl. Performed By: #### L [id number] ####[facility] LABIA [id number] [place] [address] [place] Nortramadol (U) [Mass/Vol] >5000 High <20 [facility] Comment on above: Order Comment: Speci men Type: URINE SPECIMENOrdering Facility: [facility] Address: [address] [place] [address] Result Comment: O-De smethyltramadol is a metabolite of tramadol and its presence indicates use of a tramadol containing drug (Ultram). Performed By: #### L [id number] ####[facility] LABIA [id number] [place] [address] [place] NOTE,UR PAIN ROMAN Normal [facility] Comment on above: Order Comment: Speci men Type: URINE SPECIMENOrdering Facility: [facility] Address: [address] [place] [address] Result Comment: This test is for medical use only.This test was developed and its performance characteristics determined by [facility]'s [facility] [place] ([facility] It has not been cleared or approved by the FDA. [facility] is regulated under CLIA as qualified to perform high-complexity testing. This test is used for clinical purposes. It should not be regarded as investigational or for research. Performed By: #### L [id number] ####[facility] LABIA [id number] [place] [address] [place] oxyCODONE Confirm (U) [Mass/Vol] <10 Normal <10 [facility] Comment on above: Order Comment: Speci men Type: URINE SPECIMENOrdering Facility: [facility] Address: [address] [place] [address] Performed By: #### L [id number] ####[facility] LABIA [id number] [place] [address] [place] oxyMORphone Confirm (U) [Mass/Vol] <5 Normal <5 [facility] Comment on above: Order Comment: Speci men Type: URINE SPECIMENOrdering Facility: [facility] Address: [address] [place] [address] Result Comment: Oxym orphone is a metabolite of oxycodone. Performed By: #### L [id number] ####[facility] LABIA [id number] [place] [address] [place] traMADol Confirm (U) [Mass/Vol] >5208 High <25 [facility] Comment on above: Order Comment: Speci men Type: URINE SPECIMENOrdering Facility: [facility] Address: [address] [place] [address] Result Comment: Pres ence of tramadol indicates use of a tramadol containing drug (Ultram). Tramadol is metabolized to O-Desmethyltramadol. Performed By: #### L [id number] ####[facility] LABIA [id number] [place] [address] [place] SPECIMEN VALIDITY, URINEon 0 - CHROMATE,URINE <10 Normal <50 [facility] Comment on above: Order Comment: Speci men Type: URINE SPECIMENOrdering Facility: [facility] Address: [address] [place] [address] Performed By: #### L [id number] ####[facility] LABIA [id number] [place] [address] [place] CREATININE,URINE 124.4 mg/dL Normal 20.0-300.0 [facility] Comment on above: Order Comment: Speci men Type: URINE SPECIMENOrdering Facility: [facility] Address: [address] [place] [address] Performed By: #### L [id number] ####[facility] LABIA [id number] [place] [address] [place] NITRITES,URINE 52 mg/L Normal <500 [facility] Comment on above: Order Comment: Speci men Type: URINE SPECIMENOrdering Facility: [facility] Address: [address] [place] [address] Performed By: #### L [id number] ####[facility] LABIA [id number] [place] [address] [place] OXIDANTS,URINE <38 Normal <200 [facility] Comment on above: Order Comment: Speci men Type: URINE SPECIMENOrdering Facility: [facility] Address: [address] [place] [address] Performed By: #### L [id number] ####[facility] LABCLIA [id number] [place] [address] [place] pH (U) 5.8 [pH] Normal 4.5-8.0 [facility] Comment on above: Order Comment: Speci men Type: URINE SPECIMENOrdering Facility: [facility] Address: [address] [place] [address] Performed By: #### L [id number] ####[facility] LABCLIA [id number] [place] [address] [place] SPEC GRAVITY,UR 1.017 Normal 1.003-1.03 5 [facility] Comment on above: Order Comment: Speci men Type: URINE SPECIMENOrdering Facility: [facility] Address: [address] [place] [address] Performed By: #### L [id number] ####[facility] LABCLIA [id number] [place] [address] [place] SPECIMEN VALIDITY QUALITY Specimen quality results within acceptable limits Normal [facility] Comment on above: Order Comment: Speci men Type: URINE SPECIMENOrdering Facility: [facility] Address: [address] [place] [address] Performed By: #### L [id number] ####[facility] LABCLIA [id number] [place] [address] [place] TOX SCREEN ROUT URon 08-18-2 024 Amphetamines Confirm (U) [Mass/Vol] Negative Normal Negative [facility] Comment on above: Order Comment: Speci men Type: URINE SPECIMENOrdering Facility: [facility] Address: [address] [place] [address] Result Comment: Cuto ff threshold at 1000 ng/mL. Performed By: #### U TOX2 ####[facility] LABCLIA [id number] [place] [address] [place] BARBITURATES, URINE Negative Normal Negative [facility] Comment on above: Order Comment: Speci men Type: URINE SPECIMENOrdering Facility: [facility] Address: [address] [place] [address] Result Comment: Cuto ff threshold at 200 ng/mL. Performed By: #### U TOX2 ####[facility] LABCLIA [id number] [place] [address] [place] BENZODIAZEPINES, UR Negative Normal Negative [facility] Comment on above: Order Comment: Speci men Type: URINE SPECIMENOrdering Facility: [facility] Address: [address] [place] [address] Result Comment: Cuto ff threshold at 200 ng/mL. Performed By: #### U TOX2 ####[facility] LABIA [id number] [place] [address] [place] Cannabinoids Screen Ql (U) Negative Normal Negative [facility] Comment on above: Order Comment: Speci men Type: URINE SPECIMENOrdering Facility: [facility] Address: [address] [place] [address] Result Comment: Cuto ff threshold at 50 ng/mL. Performed By: #### U TOX2 ####[facility] LABCLIA [id number] [place] [address] [place] Cocaine Ql (U) Negative Normal Negative [facility] Comment on above: Order Comment: Speci men Type: URINE SPECIMENOrdering Facility: [facility] Address: [address] [place] [address] Result Comment: Cuto ff threshold at 300 ng/mL. Performed By: #### U TOX2 ####[facility] LABCLIA [id number] [place] [address] [place] Ethanol (U) [Mass/Vol] <11 Normal <11 Cl [facility] Comment on above: Order Comment: Speci men Type: URINE SPECIMENOrdering Facility: [facility] Address: [address] [place] [address] Performed By: #### U TOX2 ####[facility] [id number] [place] [address] [place] Opiates Screen Ql (U) Negative Normal Negative [facility] Comment on above: Order Comment: Speci men Type: URINE SPECIMENOrdering Facility: [facility] Address: [address] [place] [address] Result Comment: Cuto ff threshold at 300 ng/mL. Performed By: #### U TOX2 ####[facility] [id number] [place] [address] [place] oxyCODONE cutoff Screen (U) [Mass/Vol] Negative Normal Negative [facility] Comment on above: Order Comment: Speci men Type: URINE SPECIMENOrdering Facility: [facility] Address: [address] [place] [address] Result Comment: Cuto ff threshold at 100 ng/mL. Performed By: #### U TOX2 ####[facility] [id number] [place] [address] [place] Phencyclidine Ql (U) Negative Normal Negative [facility] Comment on above: Order Comment: Speci men Type: URINE SPECIMENOrdering Facility: [facility] Address: [address] [place] [address] Result Comment: Cuto ff threshold at 25 ng/mL. Performed By: #### U TOX2 ####[facility] [id number] [place] [address] [place] TSH SerPl-aCncon 08-18-2023 TSH Qn 3.510 m[IU]/L Normal 0.270-4.20 0 [facility] Comment on above: Order Comment: Speci men Type: BLOOD SPECIMENOrdering Facility: [facility] Address: [address] [place] [address] Performed By: #### 3 016-3, LIPNF, 97704-1 ####[facility] LABCLIA [id number] [place] [address] [place]#### 49471-0 ####[facility] [id number] [place] [address] [place] CBC W Auto Differential pane l (Bld)on 07-26-2023 Basophils (Bld) [#/Vol] 0.09 10*3/uL Normal <0.11 [facility] Comment on above: Order Comment: Speci men Type: BLOOD SPECIMENOrdering Facility: [facility] Address: [address] [place] [address] Performed By: #### 5 7021-8 ####[facility] [id number] [place] [address] [place] Basophils/100 WBC (Bld) 2.0 % Normal [facility] Comment on above: Order Comment: Speci men Type: BLOOD SPECIMENOrdering Facility: [facility] Address: [address] [place] [address] Performed By: #### 5 7021-8 ####[facility] [id number] [place] [address] [place] Differential cell count method Nom (Bld) Auto Normal [facility] Comment on above: Order Comment: Speci men Type: BLOOD SPECIMENOrdering Facility: [facility] Address: [address] [place] [address] Performed By: #### 5 7021-8 ####[facility] [id number] [place] [address] [place] Eosinophils (Bld) [#/Vol] 0.04 10*3/uL Normal <0.46 [facility] Comment on above: Order Comment: Speci men Type: BLOOD SPECIMENOrdering Facility: [facility] Address: [address] [place] [address] Performed By: #### 5 7021-8 ####[facility]ITALWNCLIA [id number] [place] [address] [place] Eosinophils/100 WBC (Bld) 0.9 % Normal [facility] Comment on above: Order Comment: Speci men Type: BLOOD SPECIMENOrdering Facility: [facility] Address: [address] [place] [address] Performed By: #### 5 7021-8 ####[facility] [id number] [place] [address] [place] Erythrocyte distribution width (RBC) [Ratio] 16.9 % High 11.5-15.0 [facility] Comment on above: Order Comment: Speci men Type: BLOOD SPECIMENOrdering Facility: [facility] Address: [address] [place] [address] Performed By: #### 5 7021-8 ####[facility] [id number] [place] [address] [place] Hematocrit (Bld) [Volume fraction] 37.4 % Normal 36.0-46.0 [facility] Comment on above: Order Comment: Speci men Type: BLOOD SPECIMENOrdering Facility: [facility] Address: [address] [place] [address] Performed By: #### 5 7021-8 ####[facility] [id number] [place] [address] [place] Hemoglobin (Bld) [Mass/Vol] 12.0 g/dL Normal 11.5-15.5 [facility] Comment on above: Order Comment: Speci men Type: BLOOD SPECIMENOrdering Facility: [facility] Address: [address] [place] [address] Performed By: #### 5 7021-8 ####[facility] [id number] [place] [address] [place] Immature granulocytes (Bld) [#/Vol] 10*3/uL Normal <0.10 [facility] Comment on above: Order Comment: Speci men Type: BLOOD SPECIMENOrdering Facility: [facility] Address: [address] [place] [address] Performed By: #### 5 7021-8 ####[facility] [id number] [place] [address] [place] Immature granulocytes/100 WBC (Bld) 0.0 % Normal [facility] Comment on above: Order Comment: Speci men Type: BLOOD SPECIMENOrdering Facility: [facility] Address: [address] [place] [address] Performed By: #### 5 7021-8 ####[facility] [id number] [place] [address] [place] Lymphocytes (Bld) [#/Vol] 2.35 10*3/uL Normal 1.00-4.00 [facility] Comment on above: Order Comment: Speci men Type: BLOOD SPECIMENOrdering Facility: [facility] Address: [address] [place] [address] Performed By: #### 5 7021-8 ####[facility] [id number] [place] [address] [place] Lymphocytes/100 WBC (Bld) 51.8 % Normal [facility] Comment on above: Order Comment: Speci men Type: BLOOD SPECIMENOrdering Facility: [facility] Address: [address] [place] [address] Performed By: #### 5 7021-8 ####[facility] [id number] [place] [address] [place] MCH (RBC) [Entitic mass] 32.1 pg Normal 26.0-34.0 [facility] Comment on above: Order Comment: Speci men Type: BLOOD SPECIMENOrdering Facility: [facility] Address: [address] [place] [address] Performed By: #### 5 7021-8 ####[facility] ALLENSTEFANIEDavid [id number] [place] [address] [place] MCHC (RBC) [Mass/Vol] 32.1 g/dL Normal 30.5-36.0 [facility] Comment on above: Order Comment: Speci men Type: BLOOD SPECIMENOrdering Facility: [facility] Address: [address] [place] [address] Performed By: #### 5 7021-8 ####[facility] MGAniaANNIA [id number] [place] [address] [place] MCV (RBC) [Entitic vol] 100.0 fL Normal 80.0-100.0 [facility] Comment on above: Order Comment: Speci men Type: BLOOD SPECIMENOrdering Facility: [facility] Address: [address] [place] [address] Performed By: #### 5 7021-8 ####[facility]ITAL[facility] [id number] [place] [address] [place] Monocytes (Bld) [#/Vol] 0.50 10*3/uL Normal <0.87 [facility] Comment on above: Order Comment: Speci men Type: BLOOD SPECIMENOrdering Facility: [facility] Address: [address] [place] [address] Performed By: #### 5 7021-8 ####[facility] [id number] [place] [address] [place] Monocytes/100 WBC (Bld) 11.0 % Normal [facility] Comment on above: Order Comment: Speci men Type: BLOOD SPECIMENOrdering Facility: [facility] Address: [address] [place] [address] Performed By: #### 5 7021-8 ####[facility] MILLTOWNCLIA [id number] [place] [address] [place] Neutrophils (Bld) [#/Vol] 1.56 10*3/uL Normal 1.45-7.50 [facility] Comment on above: Order Comment: Speci men Type: BLOOD SPECIMENOrdering Facility: [facility] Address: [address] [place] [address] Performed By: #### 5 7021-8 ####[facility] [id number] [place] [address] [place] Neutrophils/100 WBC (Bld) 34.3 % Normal [facility] Comment on above: Order Comment: Speci men Type: BLOOD SPECIMENOrdering Facility: [facility] Address: [address] [place] [address] Performed By: #### 5 7021-8 ####[facility] [id number] [place] [address] [place] Nucleated RBC (Bld) [#/Vol] 10*3/uL Normal <0.01 [facility] Comment on above: Order Comment: Speci men Type: BLOOD SPECIMENOrdering Facility: [facility] Address: [address] [place] [address] Performed By: #### 5 7021-8 ####[facility] [id number] [place] [address] [place] Nucleated RBC/100 WBC (Bld) [Ratio] 0.0 /100 WBC Normal [facility] Comment on above: Order Comment: Speci men Type: BLOOD SPECIMENOrdering Facility: [facility] Address: [address] [place] [address] Performed By: #### 5 7021-8 ####[facility] [id number] [place] [address] [place] Platelet mean volume (Bld) [Entitic vol] 9.7 fL Normal 9.0-12.7 [facility] Comment on above: Order Comment: Speci men Type: BLOOD SPECIMENOrdering Facility: [facility] Address: [address] [place] [address] Performed By: #### 5 7021-8 ####[facility]ITALNCLIA [id number] [place] [address] [place] Platelets (Bld) [#/Vol] 270 10*3/uL Normal 150-400 [facility] Comment on above: Order Comment: Speci men Type: BLOOD SPECIMENOrdering Facility: [facility] Address: [address] [place] [address] Performed By: #### 5 7021-8 ####[facility]ITALNCMOUNTAINSTAR HEALTHCARE [id number] [place] [address] [place] RBC (Bld) [#/Vol] 3.74 10*6/uL Low 3.90-5.20 [facility] Comment on above: Order Comment: Speci men Type: BLOOD SPECIMENOrdering Facility: [facility] Address: [address] [place] [address] Performed By: #### 5 7021-8 ####[facility]ITALNCLIA [id number] [place] [address] [place] WBC (Bld) [#/Vol] 4.54 10*3/uL Normal 3.70-11.00 [facility] Comment on above: Order Comment: Speci men Type: BLOOD SPECIMENOrdering Facility: [facility] Address: [address] [place] [address] Performed By: #### 5 7021-8 ####[facility]ITALNCLIA [id number] [place] [address] [place] CNOVSPon 07-26-2023 CNOVSP Normal [facility] Cancer Ag125 SerPl-aCncon Cancer Ag 125 Qn 6 [arb'U]/mL Normal <39 [facility] Comment on above: Order Comment: Zay sandoval Type: BLOOD SPECIMENOrdering Facility: [facility] Address: [address] [place] [address] Result Comment: CA 1 25 test methodology [...] (CA 125 II) [package insert V 1.0 Moldovan]. Scan, [place], [place] (May 2015) Performed By: #### 1 0334-1 ####[facility] LABCLIA [id number] [place] [address] [place] Comprehensive metabolic 2000 panelon 07-26-2023 Albumin [Mass/Vol] 4.3 g/dL Normal 3.9-4.9 [facility] Comment on above: Order Comment: Zay sandoval Type: BLOOD SPECIMENOrdering Facility: [facility] Address: [address] [place] [address] Performed By: #### 2 4323-8, ####[facility] [id number] [place] [address] [place] ALP [Catalytic activity/Vol] 99 U/L Normal 34-123 [facility] Comment on above: Order Comment: Speci men Type: BLOOD SPECIMENOrdering Facility: [facility] Address: [address] [place] [address] Performed By: #### 2 4323-8, ####[facility] [id number] [place] [address] [place] ALT [Catalytic activity/Vol] 19 U/L Normal 7-38 [facility] Comment on above: Order Comment: Speci men Type: BLOOD SPECIMENOrdering Facility: [facility] Address: [address] [place] [address] Performed By: #### 2 4323-8, ####[facility] JAREN LEWNCFARZANA [id number] [place] [address] [place] Anion gap [Moles/Vol] 12 mmol/L Normal 9-18 [facility] Comment on above: Order Comment: Speci men Type: BLOOD SPECIMENOrdering Facility: [facility] Address: [address] [place] [address] Performed By: #### 2 4323-8, ####[facility] MGRAYANCFARZANA [id number] [place] [address] [place] AST [Catalytic activity/Vol] 26 U/L Normal 13-35 [facility] Comment on above: Order Comment: Speci men Type: BLOOD SPECIMENOrdering Facility: [facility] Address: [address] [place] [address] Performed By: #### 2 4323-8, ####[facility] JAREN MGTYASKINLAILAA [id number] [place] [address] [place] Bilirubin [Mass/Vol] 0.3 mg/dL Normal 0.2-1.3 [facility] Comment on above: Order Comment: Speci men Type: BLOOD SPECIMENOrdering Facility: [facility] Address: [address] [place] [address] Performed By: #### 2 4323-8, ####[facility]ITALNCLIA [id number] [place] [address] [place] Calcium [Mass/Vol] 10.2 mg/dL Normal 8.5-10.2 [facility] Comment on above: Order Comment: Speci men Type: BLOOD SPECIMENOrdering Facility: [facility] Address: [address] [place] [address] Performed By: #### 2 4323-8, 27922-0 ####[facility] MILLWNCLIA [id number] [place] [address] [place] Chloride [Moles/Vol] 103 mmol/L Normal 97-105 [facility] Comment on above: Order Comment: Speci men Type: BLOOD SPECIMENOrdering Facility: [facility] Address: [address] [place] [address] Performed By: #### 2 4323-8, ####[facility]ITALNCLIA [id number] [place] [address] [place] CO2 [Moles/Vol] 22 mmol/L Normal 22-30 [facility] Comment on above: Order Comment: Speci men Type: BLOOD SPECIMENOrdering Facility: [facility] Address: [address] [place] [address] Performed By: #### 2 4323-8, 21416-3 ####[facility]PITALNCLIA [id number] [place] [address] [place] Creatinine [Mass/Vol] 0.61 mg/dL Normal 0.58-0.96 [facility] Comment on above: Order Comment: Speci men Type: BLOOD SPECIMENOrdering Facility: [facility] Address: [address] [place] [address] Performed By: #### 2 4323-8, ####[facility]ITALNCLIA [id number] [place] [address] [place] Creatinine and Glomerular filtration rate.predicted panel (S/P/Bld) 88 mL/min/1.73m??? Normal >=60 [facility] Comment on above: Order Comment: Speci men Type: BLOOD SPECIMENOrdering Facility: [facility] Address: [address] [place] [address] Result Comment: Marlyn mated Glomerular Filtration Rate [...] actual GFR. Performed By: #### 2 4323-8, 93293-4 ####[facility] MGCALISTALIDavid [id number] [place] [address] [place] Glucose [Mass/Vol] 102 mg/dL High 74-99 [facility] Comment on above: Order Comment: Speci men Type: BLOOD SPECIMENOrdering Facility: [facility] Address: [address] [place] [address] Result Comment: The [place] [employer] (ADA) provides guidance for cutoff [...] Standards of Medical Care in Diabetes 2016, [place] [employer]. Diabetes Care. 2016.39(Suppl 1). Performed By: #### 2 4323-8, ####[facility]EDIN HOSPITALWFLSTEFANIEA [id number] [place] [address] [place] Potassium [Moles/Vol] 4.5 mmol/L Normal 3.7-5.1 [facility] Comment on above: Order Comment: Zay sandoval Type: BLOOD SPECIMENOrdering Facility: [facility] Address: [address] [place] [address] Performed By: #### 2 4323-8, ####[facility] HOSPITALANYILIA [id number] [place] [address] [place] Protein [Mass/Vol] 7.7 g/dL Normal 6.3-8.0 [facility] Comment on above: Order Comment: Speci men Type: BLOOD SPECIMENOrdering Facility: [facility] Address: [address] [place] [address] Performed By: #### 2 4323-8, 12635-0 ####[facility] MILLTOWANYILIA [id number] [place] [address] [place] Sodium [Moles/Vol] 137 mmol/L Normal 136-144 [facility] Comment on above: Order Comment: Speci men Type: BLOOD SPECIMENOrdering Facility: [facility] Address: [address] [place] [address] Performed By: #### 2 4323-8, 07290-1 ####[facility]OSPITALNCSTEFANIEA [id number] [place] [address] [place] Urea nitrogen [Mass/Vol] 26 mg/dL High 7-21 [facility] Comment on above: Order Comment: Speci men Type: BLOOD SPECIMENOrdering Facility: [facility] Address: [address] [place] [address] Performed By: #### 2 4323-8, 59180-1 ####[facility]PITALNCLIA [id number] [place] [address] [place] Magnesium SerPl-ncon 07-26 Magnesium [Mass/Vol] 2.1 mg/dL Normal 1.7-2.3 [facility] Comment on above: Order Comment: Speci men Type: BLOOD SPECIMENOrdering Facility: [facility] Address: [address] [place] [address] Performed By: #### 2 4323-8, 60565-5 ####[facility]ITALNCLIA [id number] [place] [address] [place] CNPNon 07-16-2023 CNPN Normal [facility] Basic metabolic 2000 panelon 07-14-2023 Anion gap [Moles/Vol] 11 mmol/L Normal 9-18 [facility] Comment on above: Order Comment: Speci men Type: BLOOD SPECIMENOrdering Facility: [facility] Address: [address] [place] [address] Performed By: #### 2 4321-2 ####[facility] JAREN MILLTOWNCLIA [id number] [place] [address] [place] Calcium [Mass/Vol] 9.8 mg/dL Normal 8.5-10.2 [facility] Comment on above: Order Comment: Speci men Type: BLOOD SPECIMENOrdering Facility: [facility] Address: [address] [place] [address] Performed By: #### 2 4321-2 ####[facility] MILLTOWNCLIA [id number] [place] [address] [place] Chloride [Moles/Vol] 103 mmol/L Normal 97-105 [facility] Comment on above: Order Comment: Speci men Type: BLOOD SPECIMENOrdering Facility: [facility] Address: [address] [place] [address] Performed By: #### 2 4321-2 ####[facility] MILLTOWNCLIA [id number] [place] [address] [place] CO2 [Moles/Vol] 26 mmol/L Normal 22-30 [facility] Comment on above: Order Comment: Speci men Type: BLOOD SPECIMENOrdering Facility: [facility] Address: [address] [place] [address] Performed By: #### 2 4321-2 ####[facility] MILLTOWNCLIA [id number] [place] [address] [place] Creatinine [Mass/Vol] 0.63 mg/dL Normal 0.58-0.96 [facility] Comment on above: Order Comment: Zay sandoval Type: BLOOD SPECIMENOrdering Facility: [facility] Address: [address] [place] [address] Performed By: #### 2 4321-2 ####[facility] [id number] [place] [address] [place] Creatinine and Glomerular filtration rate.predicted panel (S/P/Bld) 88 mL/min/1.73m??? Normal >=60 [facility] Comment on above: Order Comment: Zay sandoval Type: BLOOD SPECIMENOrdering Facility: [facility] Address: [address] [place] [address] Result Comment: Marlyn mated Glomerular Filtration Rate [...] actual GFR. Performed By: #### 2 4321-2 ####[facility] [id number] [place] [address] [place] Glucose [Mass/Vol] 104 mg/dL High 74-99 [facility] Comment on above: Order Comment: Zay sandoval Type: BLOOD SPECIMENOrdering Facility: [facility] Address: [address] [place] [address] Result Comment: The [place] [employer] (ADA) provides guidance for cutoff [...] Standards of Medical Care in Diabetes 2016, [place] [employer]. Diabetes Care. 2016.39(Suppl 1). Performed By: #### 2 4321-2 ####[facility]IN HOSPITALWNCLIA [id number] [place] [address] [place] Potassium [Moles/Vol] 4.4 mmol/L Normal 3.7-5.1 [facility] Comment on above: Order Comment: Speci men Type: BLOOD SPECIMENOrdering Facility: [facility] Address: [address] [place] [address] Performed By: #### 2 4321-2 ####[facility] [id number] [place] [address] [place] Sodium [Moles/Vol] 140 mmol/L Normal 136-144 [facility] Comment on above: Order Comment: Speci men Type: BLOOD SPECIMENOrdering Facility: [facility] Address: [address] [place] [address] Performed By: #### 2 4321-2 ####[facility] [id number] [place] [address] [place] Urea nitrogen [Mass/Vol] 20 mg/dL Normal 7-21 [facility] Comment on above: Order Comment: Speci men Type: BLOOD SPECIMENOrdering Facility: [facility] Address: [address] [place] [address] Performed By: #### 2 4321-2 ####[facility] [id number] [place] [address] [place] CBC W Auto Differential pane l (Bld)on 07-14-2023 Basophils (Bld) [#/Vol] 10*3/uL Normal <0.11 [facility] Comment on above: Order Comment: Speci men Type: BLOOD SPECIMENOrdering Facility: [facility] Address: [address] [place] [address] Performed By: #### 5 7021-8 ####[facility] [id number] [place] [address] [place] Basophils/100 WBC (Bld) 0.3 % Normal [facility] Comment on above: Order Comment: Speci men Type: BLOOD SPECIMENOrdering Facility: [facility] Address: [address] [place] [address] Performed By: #### 5 7021-8 ####[facility] [id number] [place] [address] [place] Differential cell count method Nom (Bld) Auto Normal [facility] Comment on above: Order Comment: Speci men Type: BLOOD SPECIMENOrdering Facility: [facility] Address: [address] [place] [address] Performed By: #### 5 7021-8 ####[facility] [id number] [place] [address] [place] Eosinophils (Bld) [#/Vol] 0.03 10*3/uL Normal <0.46 [facility] Comment on above: Order Comment: Speci men Type: BLOOD SPECIMENOrdering Facility: [facility] Address: [address] [place] [address] Performed By: #### 5 7021-8 ####[facility] [id number] [place] [address] [place] Eosinophils/100 WBC (Bld) 1.0 % Normal [facility] Comment on above: Order Comment: Speci men Type: BLOOD SPECIMENOrdering Facility: [facility] Address: [address] [place] [address] Performed By: #### 5 7021-8 ####[facility] [id number] [place] [address] [place] Erythrocyte distribution width (RBC) [Ratio] 16.1 % High 11.5-15.0 [facility] Comment on above: Order Comment: Speci men Type: BLOOD SPECIMENOrdering Facility: [facility] Address: [address] [place] [address] Performed By: #### 5 7021-8 ####[facility] MGTYASKINANNIA [id number] [place] [address] [place] Hematocrit (Bld) [Volume fraction] 35.8 % Low 36.0-46.0 [facility] Comment on above: Order Comment: Speci men Type: BLOOD SPECIMENOrdering Facility: [facility] Address: [address] [place] [address] Performed By: #### 5 7021-8 ####[facility]PITALNCMOUNTAINSTAR HEALTHCARE [id number] [place] [address] [place] Hemoglobin (Bld) [Mass/Vol] 11.6 g/dL Normal 11.5-15.5 [facility] Comment on above: Order Comment: Speci men Type: BLOOD SPECIMENOrdering Facility: [facility] Address: [address] [place] [address] Performed By: #### 5 7021-8 ####[facility] [id number] [place] [address] [place] Immature granulocytes (Bld) [#/Vol] 10*3/uL Normal <0.10 [facility] Comment on above: Order Comment: Speci men Type: BLOOD SPECIMENOrdering Facility: [facility] Address: [address] [place] [address] Performed By: #### 5 7021-8 ####[facility] HOSPITALLI [id number] [place] [address] [place] Immature granulocytes/100 WBC (Bld) 0.3 % Normal [facility] Comment on above: Order Comment: Speci men Type: BLOOD SPECIMENOrdering Facility: [facility] Address: [address] [place] [address] Performed By: #### 5 7021-8 ####[facility] HOSPITALWFLLIA [id number] [place] [address] [place] Lymphocytes (Bld) [#/Vol] 1.62 10*3/uL Normal 1.00-4.00 [facility] Comment on above: Order Comment: Speci men Type: BLOOD SPECIMENOrdering Facility: [facility] Address: [address] [place] [address] Performed By: #### 5 7021-8 ####[facility] [id number] [place] [address] [place] Lymphocytes/100 WBC (Bld) 54.0 % Normal [facility] Comment on above: Order Comment: Speci men Type: BLOOD SPECIMENOrdering Facility: [facility] Address: [address] [place] [address] Performed By: #### 5 7021-8 ####[facility] [id number] [place] [address] [place] MCH (RBC) [Entitic mass] 31.8 pg Normal 26.0-34.0 [facility] Comment on above: Order Comment: Speci men Type: BLOOD SPECIMENOrdering Facility: [facility] Address: [address] [place] [address] Performed By: #### 5 7021-8 ####[facility] [id number] [place] [address] [place] MCHC (RBC) [Mass/Vol] 32.4 g/dL Normal 30.5-36.0 [facility] Comment on above: Order Comment: Speci men Type: BLOOD SPECIMENOrdering Facility: [facility] Address: [address] [place] [address] Performed By: #### 5 7021-8 ####[facility]OSPITALNCLI [id number] [place] [address] [place] MCV (RBC) [Entitic vol] 98.1 fL Normal 80.0-100.0 [facility] Comment on above: Order Comment: Speci men Type: BLOOD SPECIMENOrdering Facility: [facility] Address: [address] [place] [address] Performed By: #### 5 7021-8 ####[facility]ITALNCMOUNTAINSTAR HEALTHCARE [id number] [place] [address] [place] Monocytes (Bld) [#/Vol] 0.23 10*3/uL Normal <0.87 [facility] Comment on above: Order Comment: Speci men Type: BLOOD SPECIMENOrdering Facility: [facility] Address: [address] [place] [address] Performed By: #### 5 7021-8 ####[facility] [id number] [place] [address] [place] Monocytes/100 WBC (Bld) 7.7 % Normal [facility] Comment on above: Order Comment: Speci men Type: BLOOD SPECIMENOrdering Facility: [facility] Address: [address] [place] [address] Performed By: #### 5 7021-8 ####[facility] [id number] [place] [address] [place] Neutrophils (Bld) [#/Vol] 1.10 10*3/uL Low 1.45-7.50 [facility] Comment on above: Order Comment: Speci men Type: BLOOD SPECIMENOrdering Facility: [facility] Address: [address] [place] [address] Performed By: #### 5 7021-8 ####[facility] [id number] [place] [address] [place] Neutrophils/100 WBC (Bld) 36.7 % Normal [facility] Comment on above: Order Comment: Speci men Type: BLOOD SPECIMENOrdering Facility: [facility] Address: [address] [place] [address] Performed By: #### 5 7021-8 ####[facility] VIPINNCLIA [id number] [place] [address] [place] Nucleated RBC (Bld) [#/Vol] 10*3/uL Normal <0.01 [facility] Comment on above: Order Comment: Speci men Type: BLOOD SPECIMENOrdering Facility: [facility] Address: [address] [place] [address] Performed By: #### 5 7021-8 ####[facility]ITALNCLIA [id number] [place] [address] [place] Nucleated RBC/100 WBC (Bld) [Ratio] 0.0 /100 WBC Normal [facility] Comment on above: Order Comment: Speci men Type: BLOOD SPECIMENOrdering Facility: [facility] Address: [address] [place] [address] Performed By: #### 5 7021-8 ####[facility]ITALNCLIA [id number] [place] [address] [place] Platelet mean volume (Bld) [Entitic vol] 9.1 fL Normal 9.0-12.7 [facility] Comment on above: Order Comment: Speci men Type: BLOOD SPECIMENOrdering Facility: [facility] Address: [address] [place] [address] Performed By: #### 5 7021-8 ####[facility]ITALNCLIA [id number] [place] [address] [place] Platelets (Bld) [#/Vol] 373 10*3/uL Normal 150-400 [facility] Comment on above: Order Comment: Speci men Type: BLOOD SPECIMENOrdering Facility: [facility] Address: [address] [place] [address] Performed By: #### 5 7021-8 ####[facility] HOSPITALLIA [id number] [place] [address] [place] RBC (Bld) [#/Vol] 3.65 10*6/uL Low 3.90-5.20 [facility] Comment on above: Order Comment: Speci men Type: BLOOD SPECIMENOrdering Facility: [facility] Address: [address] [place] [address] Performed By: #### 5 7021-8 ####[facility] HOSPITALSTEFANIEA [id number] [place] [address] [place] WBC (Bld) [#/Vol] 3.00 10*3/uL Low 3.70-11.00 [facility] Comment on above: Order Comment: Speci men Type: BLOOD SPECIMENOrdering Facility: [facility] Address: [address] [place] [address] Performed By: #### 5 7021-8 ####[facility] HOSPITALFARZANA [id number] [place] [address] [place] CNPNon 07-12-2023 CNPN Normal [facility] CBC W Auto Differential pane l (Bld)on 07-07-2023 Basophils (Bld) [#/Vol] 0.03 10*3/uL Normal <0.11 [facility] Comment on above: Order Comment: Speci men Type: BLOOD SPECIMENOrdering Facility: [facility] Address: [address] [place] [address] Performed By: #### 5 7021-8 ####[facility]OSPITALNCLIA [id number] [place] [address] [place] Basophils/100 WBC (Bld) 1.0 % Normal [facility] Comment on above: Order Comment: Speci men Type: BLOOD SPECIMENOrdering Facility: [facility] Address: [address] [place] [address] Performed By: #### 5 7021-8 ####[facility] HOSPITALA [id number] [place] [address] [place] Differential cell count method Nom (Bld) Auto Normal [facility] Comment on above: Order Comment: Speci men Type: BLOOD SPECIMENOrdering Facility: [facility] Address: [address] [place] [address] Performed By: #### 5 7021-8 ####[facility] [id number] [place] [address] [place] Eosinophils (Bld) [#/Vol] 0.05 10*3/uL Normal <0.46 [facility] Comment on above: Order Comment: Speci men Type: BLOOD SPECIMENOrdering Facility: [facility] Address: [address] [place] [address] Performed By: #### 5 7021-8 ####[facility]PITALNCMOUNTAINSTAR HEALTHCARE [id number] [place] [address] [place] Eosinophils/100 WBC (Bld) 1.6 % Normal [facility] Comment on above: Order Comment: Speci men Type: BLOOD SPECIMENOrdering Facility: [facility] Address: [address] [place] [address] Performed By: #### 5 7021-8 ####[facility]ITALNCMOUNTAINSTAR HEALTHCARE [id number] [place] [address] [place] Erythrocyte distribution width (RBC) [Ratio] 15.3 % High 11.5-15.0 [facility] Comment on above: Order Comment: Speci men Type: BLOOD SPECIMENOrdering Facility: [facility] Address: [address] [place] [address] Performed By: #### 5 7021-8 ####[facility]OSPITALNCLI [id number] [place] [address] [place] Hematocrit (Bld) [Volume fraction] 36.1 % Normal 36.0-46.0 [facility] Comment on above: Order Comment: Speci men Type: BLOOD SPECIMENOrdering Facility: [facility] Address: [address] [place] [address] Performed By: #### 5 7021-8 ####[facility] [id number] [place] [address] [place] Hemoglobin (Bld) [Mass/Vol] 11.6 g/dL Normal 11.5-15.5 [facility] Comment on above: Order Comment: Speci men Type: BLOOD SPECIMENOrdering Facility: [facility] Address: [address] [place] [address] Performed By: #### 5 7021-8 ####[facility] [id number] [place] [address] [place] Immature granulocytes (Bld) [#/Vol] 10*3/uL Normal <0.10 [facility] Comment on above: Order Comment: Speci men Type: BLOOD SPECIMENOrdering Facility: [facility] Address: [address] [place] [address] Performed By: #### 5 7021-8 ####[facility] [id number] [place] [address] [place] Immature granulocytes/100 WBC (Bld) 0.0 % Normal [facility] Comment on above: Order Comment: Speci men Type: BLOOD SPECIMENOrdering Facility: [facility] Address: [address] [place] [address] Performed By: #### 5 7021-8 ####[facility] [id number] [place] [address] [place] Lymphocytes (Bld) [#/Vol] 1.82 10*3/uL Normal 1.00-4.00 [facility] Comment on above: Order Comment: Speci men Type: BLOOD SPECIMENOrdering Facility: [facility] Address: [address] [place] [address] Performed By: #### 5 7021-8 ####[facility] MGTYASKINANYILIA [id number] [place] [address] [place] Lymphocytes/100 WBC (Bld) 58.7 % Normal [facility] Comment on above: Order Comment: Speci men Type: BLOOD SPECIMENOrdering Facility: [facility] Address: [address] [place] [address] Performed By: #### 5 7021-8 ####[facility] [id number] [place] [address] [place] MCH (RBC) [Entitic mass] 31.7 pg Normal 26.0-34.0 [facility] Comment on above: Order Comment: Speci men Type: BLOOD SPECIMENOrdering Facility: [facility] Address: [address] [place] [address] Performed By: #### 5 7021-8 ####[facility] [id number] [place] [address] [place] MCHC (RBC) [Mass/Vol] 32.1 g/dL Normal 30.5-36.0 [facility] Comment on above: Order Comment: Speci men Type: BLOOD SPECIMENOrdering Facility: [facility] Address: [address] [place] [address] Performed By: #### 5 7021-8 ####[facility] [id number] [place] [address] [place] MCV (RBC) [Entitic vol] 98.6 fL Normal 80.0-100.0 [facility] Comment on above: Order Comment: Speci men Type: BLOOD SPECIMENOrdering Facility: [facility] Address: [address] [place] [address] Performed By: #### 5 7021-8 ####[facility] [id number] [place] [address] [place] Monocytes (Bld) [#/Vol] 0.21 10*3/uL Normal <0.87 [facility] Comment on above: Order Comment: Speci men Type: BLOOD SPECIMENOrdering Facility: [facility] Address: [address] [place] [address] Performed By: #### 5 7021-8 ####[facility] [id number] [place] [address] [place] Monocytes/100 WBC (Bld) 6.8 % Normal [facility] Comment on above: Order Comment: Speci men Type: BLOOD SPECIMENOrdering Facility: [facility] Address: [address] [place] [address] Performed By: #### 5 7021-8 ####[facility] [id number] [place] [address] [place] Neutrophils (Bld) [#/Vol] 0.99 10*3/uL Low 1.45-7.50 [facility] Comment on above: Order Comment: Speci men Type: BLOOD SPECIMENOrdering Facility: [facility] Address: [address] [place] [address] Performed By: #### 5 7021-8 ####[facility] [id number] [place] [address] [place] Neutrophils/100 WBC (Bld) 31.9 % Normal [facility] Comment on above: Order Comment: Speci men Type: BLOOD SPECIMENOrdering Facility: [facility] Address: [address] [place] [address] Performed By: #### 5 7021-8 ####[facility] [id number] [place] [address] [place] Nucleated RBC (Bld) [#/Vol] 10*3/uL Normal <0.01 [facility] Comment on above: Order Comment: Speci men Type: BLOOD SPECIMENOrdering Facility: [facility] Address: [address] [place] [address] Performed By: #### 5 7021-8 ####[facility] ALLENLIA [id number] [place] [address] [place] Nucleated RBC/100 WBC (Bld) [Ratio] 0.0 /100 WBC Normal [facility] Comment on above: Order Comment: Speci men Type: BLOOD SPECIMENOrdering Facility: [facility] Address: [address] [place] [address] Performed By: #### 5 7021-8 ####[facility] MGTYASKINANNIA [id number] [place] [address] [place] Platelet mean volume (Bld) [Entitic vol] 9.5 fL Normal 9.0-12.7 [facility] Comment on above: Order Comment: Speci men Type: BLOOD SPECIMENOrdering Facility: [facility] Address: [address] [place] [address] Performed By: #### 5 7021-8 ####[facility]OSPITALFARZANA [id number] [place] [address] [place] Platelets (Bld) [#/Vol] 190 10*3/uL Normal 150-400 [facility] Comment on above: Order Comment: Speci men Type: BLOOD SPECIMENOrdering Facility: [facility] Address: [address] [place] [address] Performed By: #### 5 7021-8 ####[facility] MGTYASKINANYILIA [id number] [place] [address] [place] RBC (Bld) [#/Vol] 3.66 10*6/uL Low 3.90-5.20 [facility] Comment on above: Order Comment: Speci men Type: BLOOD SPECIMENOrdering Facility: [facility] Address: [address] [place] [address] Performed By: #### 5 7021-8 ####[facility] [id number] [place] [address] [place] WBC (Bld) [#/Vol] 3.10 10*3/uL Low 3.70-11.00 [facility] Comment on above: Order Comment: Speci men Type: BLOOD SPECIMENOrdering Facility: [facility] Address: [address] [place] [address] Performed By: #### 5 7021-8 ####[facility] [id number] [place] [address] [place] CNOVSPon 07-07-2023 CNOVSP Normal [facility] Cancer Ag125 SerPl-aCncon Cancer Ag 125 Qn 6 [arb'U]/mL Normal <39 [facility] Comment on above: Order Comment: Speci men Type: BLOOD SPECIMENOrdering Facility: [facility] Address: [address] [place] [address] Result Comment: CA 1 25 test methodology [...] (CA 125 II) [package insert V 1.0 Moldovan]. [employer], [place], [place] (May 2015) Performed By: #### 1 0334-1 ####[facility] LABCLIA [id number] [facility] [id number] [id number] [place] Comprehensive metabolic 2000 panelon 07-07-2023 Albumin [Mass/Vol] 4.4 g/dL Normal 3.9-4.9 [facility] Comment on above: Order Comment: Speci men Type: BLOOD SPECIMENOrdering Facility: [facility] Address: [address] [place] [address] Performed By: #### 1 91239, ####[facility] JAREN MILLTOWNCLIA [id number] [place] [address] [place] ALP [Catalytic activity/Vol] 93 U/L Normal 34-123 [facility] Comment on above: Order Comment: Speci men Type: BLOOD SPECIMENOrdering Facility: [facility] Address: [address] [place] [address] Performed By: #### 1 9123-9, ####[facility] MILLTOWNCLIA [id number] [place] [address] [place] ALT [Catalytic activity/Vol] 9 U/L Normal 7-38 [facility] Comment on above: Order Comment: Speci men Type: BLOOD SPECIMENOrdering Facility: [facility] Address: [address] [place] [address] Performed By: #### 1 91239, ####[facility] HOSPITALWNCLIA [id number] [place] [address] [place] Anion gap [Moles/Vol] 9 mmol/L Normal 9-18 [facility] Comment on above: Order Comment: Speci men Type: BLOOD SPECIMENOrdering Facility: [facility] Address: [address] [place] [address] Performed By: #### 1 9123-9, ####[facility] MILLTOWNCLIA [id number] [place] [address] [place] AST [Catalytic activity/Vol] 18 U/L Normal 13-35 [facility] Comment on above: Order Comment: Speci men Type: BLOOD SPECIMENOrdering Facility: [facility] Address: [address] [place] [address] Performed By: #### 1 9123-9, ####[facility] HOSPITALWNCLIA [id number] [place] [address] [place] Bilirubin [Mass/Vol] 0.4 mg/dL Normal 0.2-1.3 [facility] Comment on above: Order Comment: Speci men Type: BLOOD SPECIMENOrdering Facility: [facility] Address: [address] [place] [address] Performed By: #### 1 9123-9, ####[facility] DUNEDIN HOSPITALWANYILIA [id number] [place] [address] [place] Calcium [Mass/Vol] 10.0 mg/dL Normal 8.5-10.2 [facility] Comment on above: Order Comment: Speci men Type: BLOOD SPECIMENOrdering Facility: [facility] Address: [address] [place] [address] Performed By: #### 1 9123-9, ####[facility]ITALNCLIA [id number] [place] [address] [place] Chloride [Moles/Vol] 103 mmol/L Normal 97-105 [facility] Comment on above: Order Comment: Speci men Type: BLOOD SPECIMENOrdering Facility: [facility] Address: [address] [place] [address] Performed By: #### 1 9123-9, ####[facility]ITALNCLIA [id number] [place] [address] [place] CO2 [Moles/Vol] 24 mmol/L Normal 22-30 [facility] Comment on above: Order Comment: Speci men Type: BLOOD SPECIMENOrdering Facility: [facility] Address: [address] [place] [address] Performed By: #### 1 9123-9, ####[facility]ITALNCLIA [id number] [place] [address] [place] Creatinine [Mass/Vol] 0.64 mg/dL Normal 0.58-0.96 [facility] Comment on above: Order Comment: Zay sandoval Type: BLOOD SPECIMENOrdering Facility: [facility] Address: [address] [place] [address] Performed By: #### 1 9123-9, 61003-2 ####[facility] JAREN MGTYASKINNCSTEFANIEA [id number] [place] [address] [place] Creatinine and Glomerular filtration rate.predicted panel (S/P/Bld) 87 mL/min/1.73m??? Normal >=60 [facility] Comment on above: Order Comment: Zay sandoval Type: BLOOD SPECIMENOrdering Facility: [facility] Address: [address] [place] [address] Result Comment: Marlyn mated Glomerular Filtration Rate [...] actual GFR. Performed By: #### 1 9123-9, 21428-7 ####[facility]ITALNCLIA [id number] [place] [address] [place] Glucose [Mass/Vol] 102 mg/dL High 74-99 [facility] Comment on above: Order Comment: Zay sandoval Type: BLOOD SPECIMENOrdering Facility: [facility] Address: [address] [place] [address] Result Comment: The [place] [employer] (ADA) provides guidance for cutoff [...] Standards of Medical Care in Diabetes 2016, [place] [employer]. Diabetes Care. 2016.39(Suppl 1). Performed By: #### 1 9123-9, 25081-8 ####[facility] JAREN LEWANNIA [id number] [place] [address] [place] Potassium [Moles/Vol] 4.1 mmol/L Normal 3.7-5.1 [facility] Comment on above: Order Comment: Speci men Type: BLOOD SPECIMENOrdering Facility: [facility] Address: [address] [place] [address] Performed By: #### 1 9123-9, 13476-9 ####[facility] MGALEXA [id number] [place] [address] [place] Protein [Mass/Vol] 7.7 g/dL Normal 6.3-8.0 [facility] Comment on above: Order Comment: Speci men Type: BLOOD SPECIMENOrdering Facility: [facility] Address: [address] [place] [address] Performed By: #### 1 9123-9, 39401-8 ####[facility] MGTYASKINANNIA [id number] [place] [address] [place] Sodium [Moles/Vol] 136 mmol/L Normal 136-144 [facility] Comment on above: Order Comment: Speci men Type: BLOOD SPECIMENOrdering Facility: [facility] Address: [address] [place] [address] Performed By: #### 1 9123-9, 29341-6 ####[facility]ITALANYILIA [id number] [place] [address] [place] Urea nitrogen [Mass/Vol] 26 mg/dL High 7-21 [facility] Comment on above: Order Comment: Speci men Type: BLOOD SPECIMENOrdering Facility: [facility] Address: [address] [place] [address] Performed By: #### 1 9123-9, 59891-2 ####[facility]ITALNCLIA [id number] [place] [address] [place] [facility] Magnesium [Mass/Vol] 1.9 mg/dL Normal 1.7-2.3 [facility] Comment on above: Order Comment: Speci men Type: BLOOD SPECIMENOrdering Facility: [facility] Address: [address] [place] [address] Performed By: #### 1 9123-9, 36918-2 ####[facility] HOSPITALNCA [id number] [place] [address] [place] CNPNon 06-17-2023 CNPN Normal [facility] CNPNon 06-11-2023 CNPN Normal [facility] Comprehensive metabolic 2000 panelon 06-10-2023 Albumin [Mass/Vol] 4.0 g/dL Normal 3.9-4.9 [facility] Comment on above: Order Comment: Speci men Type: BLOOD SPECIMENOrdering Facility: [facility] Address: [address] [place] [address] Performed By: #### 2 4323-8 ####[facility] HOSPITALNCA [id number] [place] [address] [place] ALP [Catalytic activity/Vol] 90 U/L Normal 34-123 [facility] Comment on above: Order Comment: Speci men Type: BLOOD SPECIMENOrdering Facility: [facility] Address: [address] [place] [address] Performed By: #### 2 4323-8 ####[facility] HOSPITALNCA [id number] [place] [address] [place] ALT [Catalytic activity/Vol] 8 U/L Normal 7-38 [facility] Comment on above: Order Comment: Speci men Type: BLOOD SPECIMENOrdering Facility: [facility] Address: [address] [place] [address] Performed By: #### 2 4323-8 ####[facility] JAREN MILLTOWNCLIA [id number] [place] [address] [place] Anion gap [Moles/Vol] 8 mmol/L Low 9-18 [facility] Comment on above: Order Comment: Speci men Type: BLOOD SPECIMENOrdering Facility: [facility] Address: [address] [place] [address] Performed By: #### 2 4323-8 ####[facility] MILLTOWNCLIA [id number] [place] [address] [place] AST [Catalytic activity/Vol] 15 U/L Normal 13-35 [facility] Comment on above: Order Comment: Speci men Type: BLOOD SPECIMENOrdering Facility: [facility] Address: [address] [place] [address] Performed By: #### 2 4323-8 ####[facility] MILLTOWNCLIA [id number] [place] [address] [place] Bilirubin [Mass/Vol] 0.4 mg/dL Normal 0.2-1.3 [facility] Comment on above: Order Comment: Speci men Type: BLOOD SPECIMENOrdering Facility: [facility] Address: [address] [place] [address] Performed By: #### 2 4323-8 ####[facility] MILLTOWNCLIA [id number] [place] [address] [place] Calcium [Mass/Vol] 9.1 mg/dL Normal 8.5-10.2 [facility] Comment on above: Order Comment: Speci men Type: BLOOD SPECIMENOrdering Facility: [facility] Address: [address] [facility] [place] [address] Performed By: #### 2 4323-8 ####[facility] MILLTOWNCLIA [id number] [place] [address] [place] Chloride [Moles/Vol] 102 mmol/L Normal 97-105 [facility] Comment on above: Order Comment: Speci men Type: BLOOD SPECIMENOrdering Facility: [facility] Address: [address] [place] [address] Performed By: #### 2 4323-8 ####[facility]PITALLI [id number] [place] [address] [place] CO2 [Moles/Vol] 27 mmol/L Normal 22-30 [facility] Comment on above: Order Comment: Speci men Type: BLOOD SPECIMENOrdering Facility: [facility] Address: [address] [place] [address] Performed By: #### 2 4323-8 ####[facility] [id number] [place] [address] [place] Creatinine [Mass/Vol] 0.59 mg/dL Normal 0.58-0.96 [facility] Comment on above: Order Comment: Speci men Type: BLOOD SPECIMENOrdering Facility: [facility] Address: [address] [place] [address] Performed By: #### 2 4323-8 ####[facility] [id number] [address] OF [facility] Creatinine and Glomerular filtration rate.predicted panel (S/P/Bld) 89 mL/min/1.73m??? Normal >=60 [facility] Comment on above: Order Comment: Speci men Type: BLOOD SPECIMENOrdering Facility: [facility] Address: [address] [place] [address] Result Comment: Marlyn mated Glomerular Filtration Rate [...] actual GFR. Performed By: #### 2 4323-8 ####[facility] MILLTOWNCLIA [id number] [place] [address] [place] Glucose [Mass/Vol] 96 mg/dL Normal 74-99 [facility] Comment on above: Order Comment: Speci men Type: BLOOD SPECIMENOrdering Facility: [facility] Address: [address] [place] [address] Result Comment: The [place] [employer] (ADA) provides guidance for cutoff [...] Standards of Medical Care in Diabetes 2016, [place] [employer]. Diabetes Care. 2016.39(Suppl 1). Performed By: #### 2 4323-8 ####[facility] MGWNCLIA [id number] [place] [address] [place] Potassium [Moles/Vol] 4.1 mmol/L Normal 3.7-5.1 [facility] Comment on above: Order Comment: Speci men Type: BLOOD SPECIMENOrdering Facility: [facility] Address: [address] [place] [address] Performed By: #### 2 4323-8 ####[facility] MGTYASKINNCLIA [id number] [place] [address] [place] Protein [Mass/Vol] 6.9 g/dL Normal 6.3-8.0 [facility] Comment on above: Order Comment: Speci men Type: BLOOD SPECIMENOrdering Facility: [facility] Address: [address] [place] [address] Performed By: #### 2 4323-8 ####[facility] MILLTOWNCLIA [id number] [place] [address] [place] Sodium [Moles/Vol] 137 mmol/L Normal 136-144 [facility] Comment on above: Order Comment: Speci men Type: BLOOD SPECIMENOrdering Facility: [facility] Address: [address] [place] [address] Performed By: #### 2 4323-8 ####[facility] HOSPITALWNCLIA [id number] [place] [address] [place] Urea nitrogen [Mass/Vol] 21 mg/dL Normal 7-21 [facility] Comment on above: Order Comment: Speci men Type: BLOOD SPECIMENOrdering Facility: [facility] Address: [address] [place] [address] Performed By: #### 2 4323-8 ####[facility]ITALNCLIA [id number] [place] [address] [place] CNPNon 06-07-2023 CNPN Normal [facility] CNPNon 06-04-2023 CNPN Normal [facility] CA 125 BLDon 06-02-2023 Cancer Ag 125 Qn 12 [arb'U]/mL <39 U/mL [facility] CBC W Auto Differential pane l (Bld)on 06-02-2023 Basophils (Bld) [#/Vol] 0.06 10*3/uL <0.11 k/uL [facility] Basophils/100 WBC (Bld) 1.3 % [facility] Differential cell count method Nom (Bld) Auto [facility] Eosinophils (Bld) [#/Vol] 0.16 10*3/uL <0.46 k/uL [facility] Eosinophils/100 WBC (Bld) 3.5 % [facility] Erythrocyte distribution width (RBC) [Ratio] 13.3 % 11.5 - 15.0 % [facility] Hematocrit (Bld) [Volume fraction] 39.7 % 36.0 - 46.0 % [facility] Hemoglobin (Bld) [Mass/Vol] 12.5 g/dL 11.5 - 15.5 g/dL [facility] Immature granulocytes (Bld) [#/Vol] <0.10 k/uL [facility] Immature granulocytes/100 WBC (Bld) 0.2 % [facility] Lymphocytes (Bld) [#/Vol] 1.77 10*3/uL 1.00 - 4.00 k/uL [facility] Lymphocytes/100 WBC (Bld) 38.3 % [facility] MCH (RBC) [Entitic mass] 30.9 pg 26.0 - 34.0 pg [facility] MCHC (RBC) [Mass/Vol] 31.5 g/dL 30.5 - 36.0 g/dL [facility] MCV (RBC) [Entitic vol] 98.3 fL 80.0 - 100.0 fL [facility] Monocytes (Bld) [#/Vol] 0.42 10*3/uL <0.87 k/uL [facility] Monocytes/100 WBC (Bld) 9.1 % [facility] Neutrophils (Bld) [#/Vol] 2.20 10*3/uL 1.45 - 7.50 k/uL [facility] Neutrophils/100 WBC (Bld) 47.6 % [facility] Nucleated RBC (Bld) [#/Vol] <0.01 k/uL [facility] Nucleated RBC/100 WBC (Bld) [Ratio] 0.0 /100 WBC [facility] Platelet mean volume (Bld) [Entitic vol] 9.4 fL 9.0 - 12.7 fL [facility] Platelets (Bld) [#/Vol] 262 10*3/uL 150 - 400 k/uL [facility] RBC (Bld) [#/Vol] 4.04 10*6/uL 3.90 - 5.20 m/uL [facility] WBC (Bld) [#/Vol] 4.62 10*3/uL 3.70 - 11.00 k/uL [facility] Basophils (Bld) [#/Vol] 0.06 10*3/uL Normal <0.11 [facility] Comment on above: Order Comment: Speci men Type: BLOOD SPECIMENOrdering Facility: [facility] Address: [address] [place] [address] Performed By: #### 5 6211-8 ####[facility] MGWNCLIA [id number] [place] [address] [place] Basophils/100 WBC (Bld) 1.3 % Normal [facility] Comment on above: Order Comment: Speci men Type: BLOOD SPECIMENOrdering Facility: [facility] Address: [address] [place] [address] Performed By: #### 5 7021-8 ####[facility] HOSPITALLIA [id number] [place] [address] [place] Differential cell count method Nom (Bld) Auto Normal [facility] Comment on above: Order Comment: Speci men Type: BLOOD SPECIMENOrdering Facility: [facility] Address: [address] [place] [address] Performed By: #### 5 7021-8 ####[facility]IL[facility]EN[facility] HOSPITALA [id number] [place] [address] [place] Eosinophils (Bld) [#/Vol] 0.16 10*3/uL Normal <0.46 [facility] Comment on above: Order Comment: Speci men Type: BLOOD SPECIMENOrdering Facility: [facility] Address: [address] [place] [address] Performed By: #### 5 7021-8 ####[facility] HOSPITALL[facility] [id number] [place] [address] [place] Eosinophils/100 WBC (Bld) 3.5 % Normal [facility] Comment on above: Order Comment: Speci men Type: BLOOD SPECIMENOrdering Facility: [facility] Address: [address] [place] [address] Performed By: #### 5 7021-8 ####[facility]PITALL[facility] [id number] [place] [address] [place] Erythrocyte distribution width (RBC) [Ratio] 13.3 % Normal 11.5-15.0 [facility] Comment on above: Order Comment: Speci men Type: BLOOD SPECIMENOrdering Facility: [facility] Address: [address] [place] [address] Performed By: #### 5 7021-8 ####[facility] MGTYASKINNCSTEFANIE [id number] [place] [address] [place] Hematocrit (Bld) [Volume fraction] 39.7 % Normal 36.0-46.0 [facility] Comment on above: Order Comment: Speci men Type: BLOOD SPECIMENOrdering Facility: [facility] Address: [address] [place] [address] Performed By: #### 5 7021-8 ####[facility] HOSPITALNCFARZANA [id number] [place] [address] [place] Hemoglobin (Bld) [Mass/Vol] 12.5 g/dL Normal 11.5-15.5 [facility] Comment on above: Order Comment: Speci men Type: BLOOD SPECIMENOrdering Facility: [facility] Address: [address] [place] [address] Performed By: #### 5 7021-8 ####[facility] [id number] [place] [address] [place] Immature granulocytes (Bld) [#/Vol] 10*3/uL Normal <0.10 [facility] Comment on above: Order Comment: Speci men Type: BLOOD SPECIMENOrdering Facility: [facility] Address: [address] [place] [address] Performed By: #### 5 7021-8 ####[facility]ITALNCLIA [id number] [place] [address] [place] Immature granulocytes/100 WBC (Bld) 0.2 % Normal [facility] Comment on above: Order Comment: Speci men Type: BLOOD SPECIMENOrdering Facility: [facility] Address: [address] [place] [address] Performed By: #### 5 7021-8 ####[facility] MILLWNCLIA [id number] [place] [address] [place] Lymphocytes (Bld) [#/Vol] 1.77 10*3/uL Normal 1.00-4.00 [facility] Comment on above: Order Comment: Speci men Type: BLOOD SPECIMENOrdering Facility: [facility] Address: [address] [place] [address] Performed By: #### 5 7021-8 ####[facility]IT[facility] [id number] [place] [address] [place] Lymphocytes/100 WBC (Bld) 38.3 % Normal [facility] Comment on above: Order Comment: Speci men Type: BLOOD SPECIMENOrdering Facility: [facility] Address: [address] [place] [address] Performed By: #### 5 7021-8 ####[facility]PITALLIA [id number] [place] [address] [place] MCH (RBC) [Entitic mass] 30.9 pg Normal 26.0-34.0 [facility] Comment on above: Order Comment: Speci men Type: BLOOD SPECIMENOrdering Facility: [facility] Address: [address] [place] [address] Performed By: #### 5 7021-8 ####[facility]IT[facility] [id number] [place] [address] [place] MCHC (RBC) [Mass/Vol] 31.5 g/dL Normal 30.5-36.0 [facility] Comment on above: Order Comment: Speci men Type: BLOOD SPECIMENOrdering Facility: [facility] Address: [address] [place] [address] Performed By: #### 5 7021-8 ####[facility]ITALNCLIA [id number] [place] [address] [place] MCV (RBC) [Entitic vol] 98.3 fL Normal 80.0-100.0 [facility] Comment on above: Order Comment: Speci men Type: BLOOD SPECIMENOrdering Facility: [facility] Address: [address] [place] [address] Performed By: #### 5 7021-8 ####[facility] [id number] [place] [address] [place] Monocytes (Bld) [#/Vol] 0.42 10*3/uL Normal <0.87 [facility] Comment on above: Order Comment: Speci men Type: BLOOD SPECIMENOrdering Facility: [facility] Address: [address] [place] [address] Performed By: #### 5 7021-8 ####[facility] [id number] [place] [address] [place] Monocytes/100 WBC (Bld) 9.1 % Normal [facility] Comment on above: Order Comment: Speci men Type: BLOOD SPECIMENOrdering Facility: [facility] Address: [address] [place] [address] Performed By: #### 5 7021-8 ####[facility]IT[facility] [id number] [place] [address] [place] Neutrophils (Bld) [#/Vol] 2.20 10*3/uL Normal 1.45-7.50 [facility] Comment on above: Order Comment: Speci men Type: BLOOD SPECIMENOrdering Facility: [facility] Address: [address] [place] [address] Performed By: #### 5 7021-8 ####[facility] [id number] [place] [address] [place] Neutrophils/100 WBC (Bld) 47.6 % Normal [facility] Comment on above: Order Comment: Speci men Type: BLOOD SPECIMENOrdering Facility: [facility] Address: [address] [place] [address] Performed By: #### 5 7021-8 ####[facility] MGROMAIN [id number] [place] [address] [place] Nucleated RBC (Bld) [#/Vol] 10*3/uL Normal <0.01 [facility] Comment on above: Order Comment: Speci men Type: BLOOD SPECIMENOrdering Facility: [facility] Address: [address] [place] [address] Performed By: #### 5 7021-8 ####[facility] [id number] [place] [address] [place] Nucleated RBC/100 WBC (Bld) [Ratio] 0.0 /100 WBC Normal [facility] Comment on above: Order Comment: Speci men Type: BLOOD SPECIMENOrdering Facility: [facility] Address: [address] [place] [address] Performed By: #### 5 7021-8 ####[facility] HOSPITALDavid [id number] [place] [address] [place] Platelet mean volume (Bld) [Entitic vol] 9.4 fL Normal 9.0-12.7 [facility] Comment on above: Order Comment: Speci men Type: BLOOD SPECIMENOrdering Facility: [facility] Address: [address] [place] [address] Performed By: #### 5 7021-8 ####[facility]ITALLI [id number] [place] [address] [place] Platelets (Bld) [#/Vol] 262 10*3/uL Normal 150-400 [facility] Comment on above: Order Comment: Speci men Type: BLOOD SPECIMENOrdering Facility: [facility] Address: [address] [place] [address] Performed By: #### 5 7021-8 ####[facility]OS[facility]ITALNCLIA [id number] [place] [address] [place] RBC (Bld) [#/Vol] 4.04 10*6/uL Normal 3.90-5.20 [facility] Comment on above: Order Comment: Speci men Type: BLOOD SPECIMENOrdering Facility: [facility] Address: [address] [place] [address] Performed By: #### 5 7021-8 ####[facility]ITALNCLIA [id number] [place] [address] [place] WBC (Bld) [#/Vol] 4.62 10*3/uL Normal 3.70-11.00 [facility] Comment on above: Order Comment: Speci men Type: BLOOD SPECIMENOrdering Facility: [facility] Address: [address] [place] [address] Performed By: #### 5 7021-8 ####[facility]ITALL[facility] [id number] [place] [address] [place] CNOVSPon 06-02-2023 CNOVSP Normal [facility] CNPNon 06-02-2023 CNPN Normal [facility] Cancer Ag125 SerPl-aCncon Cancer Ag 125 Qn 12 [arb'U]/mL Normal <39 [facility] Comment on above: Order Comment: Speci men Type: BLOOD SPECIMENOrdering Facility: [facility] Address: [address] [place] [address] Result Comment: CA 1 25 test methodology [...] (CA 125 II) [package insert V 1.0 [place]ovan]. [employer], [place], [place] (May 2015) Performed By: #### 1 0334-1 ####[facility] LABCLIA [id number] [place] [address] [place] [facility] Comprehensive metabolic 2000 panelon 06-02-2023 Albumin [Mass/Vol] 4.3 g/dL 3.9 - 4.9 g/dL [facility] ALP [Catalytic activity/Vol] 87 U/L 34 - 123 U/L [facility] ALT [Catalytic activity/Vol] 9 U/L 7 - 38 U/L [facility] Anion gap [Moles/Vol] 11 mmol/L 9 - 18 mmol/L [facility] AST [Catalytic activity/Vol] 15 U/L 13 - 35 U/L [facility] Bilirubin [Mass/Vol] 0.2 mg/dL 0.2 - 1 .3 mg/dL [facility] Calcium [Mass/Vol] 9.4 mg/dL 8.5 - 10. 2 mg/dL [facility] Chloride [Moles/Vol] 101 mmol/L 97 - 10 5 mmol/L [facility] CO2 [Moles/Vol] 26 mmol/L 22 - 30 mmol/L [facility] Creatinine [Mass/Vol] 0.66 mg/dL 0.58 - 0.96 mg/dL [facility] Estimated Glomerular Filtration Rate 87 mL/min/1.73m >=60 mL/min/1.7 3m [facility] Glucose [Mass/Vol] 116 mg/dL High 74 - 99 mg/dL [facility] Potassium [Moles/Vol] 4.1 mmol/L 3.7 - 5.1 mmol/L [facility] Protein [Mass/Vol] 7.3 g/dL 6.3 - 8.0 g/dL [facility] Sodium [Moles/Vol] 138 mmol/L 136 - 144 mmol/L [facility] Urea nitrogen [Mass/Vol] 17 mg/dL 7 - 21 mg/dL [facility] Albumin [Mass/Vol] 4.3 g/dL Normal 3.9-4.9 [facility] Comment on above: Order Comment: Speci men Type: BLOOD SPECIMENOrdering Facility: [facility] Address: [address] [place] [address] Performed By: #### 1 9123-9, 61647-4 ####[facility] JAREN MILLTOWNCLIA [id number] [place] [address] [place] ALP [Catalytic activity/Vol] 87 U/L Normal 34-123 [facility] Comment on above: Order Comment: Speci men Type: BLOOD SPECIMENOrdering Facility: [facility] Address: [address] [place] [address] Performed By: #### 1 9123-9, ####[facility] MILLTOWNCLIA [id number] [place] [address] [place] ALT [Catalytic activity/Vol] 9 U/L Normal 7-38 [facility] Comment on above: Order Comment: Speci men Type: BLOOD SPECIMENOrdering Facility: [facility] Address: [address] [place] [address] Performed By: #### 1 9123-9, ####[facility] MILLTOWNCLIA [id number] [place] [address] [place] Anion gap [Moles/Vol] 11 mmol/L Normal 9-18 [facility] Comment on above: Order Comment: Speci men Type: BLOOD SPECIMENOrdering Facility: [facility] Address: [address] [place] [address] Performed By: #### 1 9123-9, ####[facility] MILLTOWNCLIA [id number] [place] [address] [place] AST [Catalytic activity/Vol] 15 U/L Normal 13-35 [facility] Comment on above: Order Comment: Speci men Type: BLOOD SPECIMENOrdering Facility: [facility] Address: [address] [place] [address] Performed By: #### 1 9123-9, 93200-2 ####[facility] MILLTOWNCLIA [id number] [place] [address] [place] Bilirubin [Mass/Vol] 0.2 mg/dL Normal 0.2-1.3 [facility] Comment on above: Order Comment: Speci men Type: BLOOD SPECIMENOrdering Facility: [facility] Address: [address] [place] [address] Performed By: #### 1 9123-9, 81683-4 ####[facility] JAREN MILLTOWANYILIA [id number] [place] [address] [place] Calcium [Mass/Vol] 9.4 mg/dL Normal 8.5-10.2 [facility] Comment on above: Order Comment: Speci men Type: BLOOD SPECIMENOrdering Facility: [facility] Address: [address] [place] [address] Performed By: #### 1 9123-9, 21719-4 ####[facility] MILLWANYILIA [id number] [place] [address] [place] Chloride [Moles/Vol] 101 mmol/L Normal 97-105 [facility] Comment on above: Order Comment: Speci men Type: BLOOD SPECIMENOrdering Facility: [facility] Address: [address] [place] [address] Performed By: #### 1 9123-9, ####[facility] MILLWNCLIA [id number] [place] [address] [place] CO2 [Moles/Vol] 26 mmol/L Normal 22-30 [facility] Comment on above: Order Comment: Speci men Type: BLOOD SPECIMENOrdering Facility: [facility] Address: [address] [place] [address] Performed By: #### 1 9123-9, ####[facility] JAREN MILLTOWNCLIA [id number] [place] [address] [place] Creatinine [Mass/Vol] 0.66 mg/dL Normal 0.58-0.96 [facility] Comment on above: Order Comment: Zay sandoval Type: BLOOD SPECIMENOrdering Facility: [facility] Address: [address] [place] [address] Performed By: #### 1 9123-9, 15927-2 ####[facility]PITALNCMOUNTAINSTAR [facility] [id number] [place] [address] [place] Creatinine and Glomerular filtration rate.predicted panel (S/P/Bld) 87 mL/min/1.73m??? Normal >=60 [facility] Comment on above: Order Comment: Zay sandoval Type: BLOOD SPECIMENOrdering Facility: [facility] Address: [address] [place] [address] Result Comment: Marlyn mated Glomerular Filtration Rate [...] actual GFR. Performed By: #### 1 9123-9, 54739-0 ####[facility]ITAL[facility] [id number] [place] [address] [place] Glucose [Mass/Vol] 116 mg/dL High 74-99 [facility] Comment on above: Order Comment: Zay sandoval Type: BLOOD SPECIMENOrdering Facility: [facility] Address: [address] [place] [address] Result Comment: The [place] [employer] (ADA) provides guidance for cutoff [...] Standards of Medical Care in Diabetes 2016, [place] [employer]. Diabetes Care. 2016.39(Suppl 1). Performed By: #### 1 9123-9, 42488-0 ####[facility] MGALEXA [id number] [place] [address] [place] Potassium [Moles/Vol] 4.1 mmol/L Normal 3.7-5.1 [facility] Comment on above: Order Comment: Speci men Type: BLOOD SPECIMENOrdering Facility: [facility] Address: [address] [place] [address] Performed By: #### 1 9123-9, 51318-3 ####[facility] HOSPITALANNIA [id number] [place] [address] [place] Protein [Mass/Vol] 7.3 g/dL Normal 6.3-8.0 [facility] Comment on above: Order Comment: Speci men Type: BLOOD SPECIMENOrdering Facility: [facility] Address: [address] [place] [address] Performed By: #### 1 9123-9, ####[facility] HOSPITALANNIA [id number] [place] [address] [place] Sodium [Moles/Vol] 138 mmol/L Normal 136-144 [facility] Comment on above: Order Comment: Speci men Type: BLOOD SPECIMENOrdering Facility: [facility] Address: [address] [place] [address] Performed By: #### 1 9123-9, ####[facility] HOSPITALLAILAA [id number] [place] [address] [place] Urea nitrogen [Mass/Vol] 17 mg/dL Normal 7-21 [facility] Comment on above: Order Comment: Speci men Type: BLOOD SPECIMENOrdering Facility: [facility] Address: [address] [place] [address] Performed By: #### 1 9123-9, 88165-7 ####[facility] [id number] [place] [address] [place] HBV core Ab Ser Qlon 023 HBV core Ab Ql (S) Negative Normal Negative [facility] Comment on above: Order Comment: Speci men Type: BLOOD SPECIMENOrdering Facility: [facility] Address: [address] [place] [address] Result Comment: No e vidence of current or past infection with Hepatitis B virus. Should recent infection be suspected, repeat testing may be considered 3-4 weeks after this draw. Performed By: #### 5 195-3, 92866-8, ####[facility] LABCLIA [id number] [address] [place] HBV surface Ab Ql (S)on 05-10 HBV surface Ab Qn (S) <8.00 Normal [facility] Comment on above: Order Comment: Speci men Type: BLOOD SPECIMENOrdering Facility: [facility] Address: [address] [place] [address] Result Comment: <8 m IU/mL: No serological evidence of immunity to Hepatitis B Virus.>/= 8 to <12 mIU/mL: No serological evidence of immunity to Hepatitis B Virus.>/= 12 mIU/mL: Consistent with serological evidence of immunity to Hepatitis B Virus. Performed By: #### 5 195-3, 87196-0, ####[facility] LABCLIA [id number] [place] [address] [place] HBV surface Ab Ser Qlon 05-10 HBV surface Ab Ql (S) Negative Normal [facility] Comment on above: Order Comment: Speci men Type: BLOOD SPECIMENOrdering Facility: [facility] Address: [address] [place] [address] Result Comment: No s erological evidence of immunity to Hepatitis B Virus. Performed By: #### 5 195-3, 70940-4, ####[facility] LABCLIA [id number] [place] [id number] [place] HBV surface Ag Ser Qlon 05-10 HBV surface Ag Ql (S) Negative Normal Negative [facility] Comment on above: Order Comment: Speci men Type: BLOOD SPECIMENOrdering Facility: [facility] Address: [address] [place] [address] Performed By: #### 5 195-3, 72490-1, 72793-8 ####[facility] LABCLIA [id number] [place] [address] [place] HCV Ab Ser Qlon 06-02-2023 HCV Ab Ql (S) Negative Normal Negative [facility] Comment on above: Order Comment: Speci men Type: BLOOD SPECIMENOrdering Facility: [facility] Address: [address] [place] [address] Result Comment: The result suggests no evidence of active infection with Hepatitis C virus. Should recent infection be suspected, repeat testing may be considered 4-6 weeks after this draw. Performed By: #### 1 6128-1 ####[facility] LABIA [id number] [place] [address] [place] MAGNESIUM BLDon 06-02-2023 Magnesium [Mass/Vol] 2.1 mg/dL 1.7 - 2 .3 mg/dL [facility] Magnesium SerPl-mCncon 06-02 Magnesium [Mass/Vol] 2.1 mg/dL Normal 1.7-2.3 [facility] Comment on above: Order Comment: Speci men Type: BLOOD SPECIMENOrdering Facility: [facility] Address: [address] [place] [address] Performed By: #### 1 9123-9, 45262-0 ####[facility] JAREN MILLJUANLAILAA [id number] [place] [address] [place] CNOVon 05-17-2023 CNOV Normal [facility] CNPNon 05-13-2023 [facility] Normal [facility] CNPNon 05-11-2023 CNPN Normal [facility] CNOVSPon 05-03-2023 CNOVSP Visit (SP) Office (G YNML) ----- STEFANO WASHINGTON ([id number]) 1940 F Date Time Provider Department 05/03/23 4:45 PM [facility] During your visit today, we recorded the following information about you: Temperature Pulse Blood pressure Weight 97.5 degrees 93/minute 144/66 72.9 kg Eliot Castillo MD 05/04/2023 4:46 AM Signed Gynecologic Oncology [facility] Postop Re: Stefano Washington CCF#: [id number] Date of Service: 05/03/2023 Dr. Jacky Graves [...] Benign fibroadipose tissue. (more content not included)... [facility] 05-03-2023 [facility] 04-21-2023 [facility] Telephone (GYNML) ----- STEFANO WASHINGTON ([id number]) 1940 F Date Time Provider Department 04/21/23 ANNMARIE MENDOZA [facility] During your visit today, we recorded the following information about you: Annmarie Mendoza APRN.[facility] 04/21/2023 4:19 PM Signed [facility] facility calling to report some redness mainly [...] currently scheduled with on 05/03. Annmarie Mendoza APRN.[employer] Allergies As of Date: 04/21/2023 Noted Allergy [...] Status:Closed by ANNMARIE MENDOZA on 04/21/23 Normal [facility] CASE MANAGEMon 04-14-2023 CASE MANAGEM Normal [facility] CASE MANAGEM Normal [facility] CBC panel Auto (Bld)on 04-14 Erythrocyte distribution width (RBC) [Ratio] 13.2 % Normal 11.5-15.0 [facility] Comment on above: Order Comment: Speci men Type: BLOOD SPECIMENOrdering Facility: [facility] Address: [address] [place] [address] Performed By: #### 5 8410-2 ####[facility] LABIA [id number] [place] [address] [place] Hematocrit (Bld) [Volume fraction] 34.2 % Low 36.0-46.0 [facility] Comment on above: Order Comment: Speci men Type: BLOOD SPECIMENOrdering Facility: [facility] Address: [address] [place] [address] Performed By: #### 5 8410-2 ####[facility] LABIA [id number] [place] [address] [place] Hemoglobin (Bld) [Mass/Vol] 10.9 g/dL Low 11.5-15.5 [facility] Comment on above: Order Comment: Speci men Type: BLOOD SPECIMENOrdering Facility: [facility] Address: [address] [place] [address] Performed By: #### 5 8410-2 ####[facility] LABIA [id number] [place] [address] [place] MCH (RBC) [Entitic mass] 32.1 pg Normal 26.0-34.0 [facility] Comment on above: Order Comment: Speci men Type: BLOOD SPECIMENOrdering Facility: [facility] Address: [address] [place] [address] Performed By: #### 5 8410-2 ####[facility] LABIA [id number] [address] STATES [facility] MCHC (RBC) [Mass/Vol] 31.9 g/dL Normal 30.5-36.0 [facility] Comment on above: Order Comment: Speci men Type: BLOOD SPECIMENOrdering Facility: [facility] Address: [address] [place], [place] [address] Performed By: #### 5 8410-2 ####[facility] LABIA [id number] [place] [address] [place] MCV (RBC) [Entitic vol] 100.6 fL High 80.0-100.0 [facility] Comment on above: Order Comment: Speci men Type: BLOOD SPECIMENOrdering Facility: [facility] Address: [address] [place], [place] [address] Performed By: #### 5 8410-2 ####[facility] HOSPITALIA [id number] [place] [address] [place] Nucleated RBC (Bld) [#/Vol] 10*3/uL Normal <0.01 [facility] Comment on above: Order Comment: Speci men Type: BLOOD SPECIMENOrdering Facility: [facility] Address: [address] [place] [id number] Performed By: #### 5 8410-2 ####[facility] LABIA [id number] [address] [place] Platelet mean volume (Bld) [Entitic vol] 9.8 fL Normal 9.0-12.7 [facility] Comment on above: Order Comment: Speci men Type: BLOOD SPECIMENOrdering Facility: [facility] Address: [address] [place], [place] [address] Performed By: #### 5 8410-2 ####[facility] LABIA [id number] [place] [address] [place] Platelets (Bld) [#/Vol] 315 10*3/uL Normal 150-400 [facility] Comment on above: Order Comment: Speci men Type: BLOOD SPECIMENOrdering Facility: [facility] Address: [address] [place] [address] Performed By: #### 5 8410-2 ####[facility] LABCLIA [id number] [place] [address] [place] RBC (Bld) [#/Vol] 3.40 10*6/uL Low 3.90-5.20 [facility] Comment on above: Order Comment: Speci men Type: BLOOD SPECIMENOrdering Facility: [facility] Address: [address] [place] [address] Performed By: #### 5 8410-2 ####[facility] LABCLIA [id number] [place] [address] [place] WBC (Bld) [#/Vol] 5.40 10*3/uL Normal 3.70-11.00 [facility] Comment on above: Order Comment: Speci men Type: BLOOD SPECIMENOrdering Facility: [facility] Address: [address] [place] [address] Performed By: #### 5 8410-2 ####[facility] LABCLIA [id number] [place] [address] [place] CNDSon 04-14-2023 CNDS Normal [facility] Comprehensive metabolic 2000 panelon 04-14-2023 Albumin [Mass/Vol] 3.1 g/dL Low 3.9-4.9 [facility] Comment on above: Order Comment: Speci men Type: BLOOD SPECIMENOrdering Facility: [facility] Address: [address] [place] [address] Performed By: #### 1 9123-9, 2777-1, 17257-5 ####[facility] LABCLIA [id number] [place] [address] [place] ALP [Catalytic activity/Vol] 63 U/L Normal 34-123 [facility] Comment on above: Order Comment: Speci men Type: BLOOD SPECIMENOrdering Facility: [facility] Address: [address] [place] [address] Performed By: #### 1 9123-9, 2777-, 95006-0 ####[facility] LABCLIA [id number] [place] [address] [place] ALT [Catalytic activity/Vol] 22 U/L Normal 7-38 [facility] Comment on above: Order Comment: Speci men Type: BLOOD SPECIMENOrdering Facility: [facility] Address: [address] [place] [address] Performed By: #### 1 9123-9, 2777-, 68518-1 ####[facility] LABCLIA [id number] [place] [address] [place] Anion gap [Moles/Vol] 12 mmol/L Normal 9-18 [facility] Comment on above: Order Comment: Speci men Type: BLOOD SPECIMENOrdering Facility: [facility] Address: [address] [place] [address] Performed By: #### 1 9123-9, 27702-06, 22465-6 ####[facility] LABCLIA [id number] [place] [address] [place] AST [Catalytic activity/Vol] 31 U/L Normal 13-35 [facility] Comment on above: Order Comment: Speci men Type: BLOOD SPECIMENOrdering Facility: [facility] Address: [address] [place] [address] Performed By: #### 1 9123-9, 2777-, 81143-9 ####[facility] LABCLIA [id number] [place] [address] [place] Bilirubin [Mass/Vol] 0.4 mg/dL Normal 0.2-1.3 [facility] Comment on above: Order Comment: Speci men Type: BLOOD SPECIMENOrdering Facility: [facility] Address: [address] [place] [address] Performed By: #### 1 9123-9, 2776-08, ####[facility] LABCLIA [id number] [place] [address] [place] Calcium [Mass/Vol] 8.6 mg/dL Normal 8.5-10.2 [facility] Comment on above: Order Comment: Speci men Type: BLOOD SPECIMENOrdering Facility: [facility] Address: [address] Performed By: #### 1 9123-9, 2776-08, ####[facility] LABCLIA [id number] [place] [address] [place] Chloride [Moles/Vol] 103 mmol/L Normal 97-105 [facility] Comment on above: Order Comment: Speci men Type: BLOOD SPECIMENOrdering Facility: [facility] Address: [place] [address] Performed By: #### 1 9123-9, 2776-08, ####[facility] LABCLIA [id number] [place] [address] [place] CO2 [Moles/Vol] 22 mmol/L Normal 22-30 [facility] Comment on above: Order Comment: Speci men Type: BLOOD SPECIMENOrdering Facility: [facility] Address: [address] [place] [address] Performed By: #### 1 9123-9, 2776-08, ####[facility] LABCLIA [id number] [address] [address] [place] Creatinine [Mass/Vol] 0.55 mg/dL Low 0.58-0.96 [facility] Comment on above: Order Comment: Zay sandoval Type: BLOOD SPECIMENOrdering Facility: [facility] Address: [address] [place] [id number] Performed By: #### 1 9123-9, 2777-1, 61050-0 ####[facility] LABCLIA [id number] [address] [place] Creatinine and Glomerular filtration rate.predicted panel (S/P/Bld) 91 mL/min/1.73m??? Normal >=60 [facility] Comment on above: Order Comment: Zay lori Type: BLOOD SPECIMENOrdering Facility: [facility] Address: [address] Result Comment: Marlyn mated Glomerular Filtration [...] GFR. Performed By: #### 1 9123-9, 2777-, 54040-9 ####[facility] LABCLIA [id number] [place] [address] [place] Glucose [Mass/Vol] 106 mg/dL High 74-99 [facility] Comment on above: Order Comment: Zay sandoval Type: BLOOD SPECIMENOrdering Facility: [facility] Address: [address] [id number] Result Comment: The [place] [employer] (ADA) provides guidance for cutoff [...] Standards of Medical Care in Diabetes 2016, [place] [employer]. Diabetes Care. 2016.39(Suppl 1). Performed By: #### 1 9123-9, 2776-08, ####[facility] LABCLIA [id number] [address] [address] [place] Potassium [Moles/Vol] 3.7 mmol/L Normal 3.7-5.1 [facility] Comment on above: Order Comment: Speci men Type: BLOOD SPECIMENOrdering Facility: [facility] Address: [address] [id number] Performed By: #### 1 9123-9, 2776-08, ####[facility] LABCLIA [id number] [address] [address] [place] Protein [Mass/Vol] 5.9 g/dL Low 6.3-8.0 [facility] Comment on above: Order Comment: Speci men Type: BLOOD SPECIMENOrdering Facility: [facility] Address: [address] [id number] Performed By: #### 1 9123-9, 2776-08, ####[facility] LABIA [id number] [address] [address] [place] Sodium [Moles/Vol] 137 mmol/L Normal 136-144 [facility] Comment on above: Order Comment: Speci men Type: BLOOD SPECIMENOrdering Facility: [facility] Address: [address] [place] [address] Performed By: #### 1 9123-9, 2776-08, ####[facility] LABCLIA [id number] [address] [address] [place] Urea nitrogen [Mass/Vol] 12 mg/dL Normal 7-21 [facility] Comment on above: Order Comment: Speci men Type: BLOOD SPECIMENOrdering Facility: [facility] Address: [place] [address] Performed By: #### 1 9123-9, 2777-1, 71748-0 ####[facility] LABIA [id number] [place] [address] [place] ECG COMPLETEon 04-14-2023 ECG COMPLETE Normal [facility] HIGH SENSITIVITY TROPONIN To n 04-14-2023 Troponin T.cardiac High sensitivity method [Mass/Vol] 13 ng/L High <12 [facility] Comment on above: Order Comment: Speci men Type: BLOOD SPECIMENOrdering Facility: [facility] Address: [address] [place] [address] Result Comment: When assessing risk for acute [...] day MACE. Performed By: #### H STNT ####[facility] LABIA [id number] [place] [address] [place] Magnesium SerPl-mCncon 04-14 Magnesium [Mass/Vol] 1.9 mg/dL Normal 1.7-2.3 [facility] Comment on above: Order Comment: Speci men Type: BLOOD SPECIMENOrdering Facility: [facility] Address: [place] [address] Performed By: #### 1 9123-9, 2777-, 16959-3 ####[facility] LABIA [id number] [place] [id number] [place] NURSING PROGon 04-14-2023 NURSING PROG Normal [facility] NUTRITIONon 04-14-2023 NUTRITION Normal [facility] Phosphate SerPl-mCncon 04-14 Phosphate [Mass/Vol] 3.9 mg/dL Normal 2.7-4.8 [facility] Comment on above: Order Comment: Speci men Type: BLOOD SPECIMENOrdering Facility: [facility] Address: [address] [place] [address] Performed By: #### 1 9123-9, 2777-1, 61177-8 ####[facility] LABCLIA [id number] [place] [address] [place] CASE MANAGEMon 04-13-2023 CASE MANAGEM Normal [facility] CASE MANAGEM Normal [facility] CBC panel Auto (Bld)on 04-13 Erythrocyte distribution width (RBC) [Ratio] 13.2 % Normal 11.5-15.0 [facility] Comment on above: Order Comment: Speci men Type: BLOOD SPECIMENOrdering Facility: [facility] Address: [address] [place] [address] Performed By: #### 5 8410-2 ####[facility] LABCLIA [id number] [address] [place] Hematocrit (Bld) [Volume fraction] 35.6 % Low 36.0-46.0 [facility] Comment on above: Order Comment: Speci men Type: BLOOD SPECIMENOrdering Facility: [facility] Address: [address] [place] [address] Performed By: #### 5 8410-2 ####[facility] LABCLIA [id number] [place] [address] [place] Hemoglobin (Bld) [Mass/Vol] 11.2 g/dL Low 11.5-15.5 [facility] Comment on above: Order Comment: Speci men Type: BLOOD SPECIMENOrdering Facility: [facility] Address: [address] [place] [address] Performed By: #### 5 8410-2 ####[facility] LABCLIA [id number] [place] [address] [place] MCH (RBC) [Entitic mass] 32.0 pg Normal 26.0-34.0 [facility] Comment on above: Order Comment: Speci men Type: BLOOD SPECIMENOrdering Facility: [facility] Address: [address] [place] [address] Performed By: #### 5 8410-2 ####[facility] LABCLIA [id number] [place] [address] [place] MCHC (RBC) [Mass/Vol] 31.5 g/dL Normal 30.5-36.0 [facility] Comment on above: Order Comment: Speci men Type: BLOOD SPECIMENOrdering Facility: [facility] Address: [address] [place] [address] Performed By: #### 5 8410-2 ####[facility] LABCLIA [id number] [place] [address] [place] MCV (RBC) [Entitic vol] 101.7 fL High 80.0-100.0 [facility] Comment on above: Order Comment: Speci men Type: BLOOD SPECIMENOrdering Facility: [facility] Address: [address] [place] [address] Performed By: #### 5 8410-2 ####[facility] LABCLIA [id number] [place] [address] [place] Nucleated RBC (Bld) [#/Vol] 10*3/uL Normal <0.01 [facility] Comment on above: Order Comment: Speci men Type: BLOOD SPECIMENOrdering Facility: [facility] Address: [address] [place], [place] [address] Performed By: #### 5 8410-2 ####[facility] LABCLIA [id number] [place] [address] [place] Platelet mean volume (Bld) [Entitic vol] 10.4 fL Normal 9.0-12.7 [facility] Comment on above: Order Comment: Speci men Type: BLOOD SPECIMENOrdering Facility: [facility] Address: [address] [place] [place] [address] Performed By: #### 5 8410-2 ####[facility] LABCLIA [id number] [address] Platelets (Bld) [#/Vol] 327 10*3/uL Normal 150-400 [facility] Comment on above: Order Comment: Speci men Type: BLOOD SPECIMENOrdering Facility: [facility] Address: [address] [place] [address] Performed By: #### 5 8410-2 ####[facility] LABIA [id number] [address] STATES [facility] RBC (Bld) [#/Vol] 3.50 10*6/uL Low 3.90-5.20 [facility] Comment on above: Order Comment: Speci men Type: BLOOD SPECIMENOrdering Facility: [facility] Address: [address] [place] [address] Performed By: #### 5 8410-2 ####[facility] LABIA [id number] [address] STATES OF [facility] WBC (Bld) [#/Vol] 6.06 10*3/uL Normal 3.70-11.00 [facility] Comment on above: Order Comment: Speci men Type: BLOOD SPECIMENOrdering Facility: [facility] Address: [address] [place] [address] Performed By: #### 5 8410-2 ####[facility] LABIA [id number] [place] [address] [place] [facility] [place] Comprehensive metabolic 2000 panelon 04-13-2023 Albumin [Mass/Vol] 3.5 g/dL Low 3.9-4.9 [facility] Comment on above: Order Comment: Speci men Type: BLOOD SPECIMENOrdering Facility: [facility] Address: [address] [place] [address] Performed By: #### 2 4323-8, 24672-6, 2776- ####[facility] LABCLIA [id number] [place] [address] [place] ALP [Catalytic activity/Vol] 63 U/L Normal 34-123 [facility] Comment on above: Order Comment: Speci men Type: BLOOD SPECIMENOrdering Facility: [facility] Address: [address] [place], [place] [address] Performed By: #### 2 4323-8, , 2776-08 ####[facility] LABCLIA [id number] [address] [place] ALT [Catalytic activity/Vol] 14 U/L Normal 7-38 [facility] Comment on above: Order Comment: Speci men Type: BLOOD SPECIMENOrdering Facility: [facility] Address: [address] [place], [place] [address] Performed By: #### 2 432-8, , 2776-08 ####[facility] LABCLIA [id number] [place] [address] [place] Anion gap [Moles/Vol] 11 mmol/L Normal 9-18 [facility] Comment on above: Order Comment: Speci men Type: BLOOD SPECIMENOrdering Facility: [facility] Address: [address] [place], [place] [address] Performed By: #### 2 4323-8, , 2776-08 ####[facility] LABCLIA [id number] [place] [address] [place] AST [Catalytic activity/Vol] 23 U/L Normal 13-35 [facility] Comment on above: Order Comment: Speci men Type: BLOOD SPECIMENOrdering Facility: [facility] Address: [address] [place], [place] [address] Performed By: #### 2 4323-8, , 2777-1 ####[facility] LABCLIA [id number] [place] [address] [place] Bilirubin [Mass/Vol] 0.6 mg/dL Normal 0.2-1.3 [facility] Comment on above: Order Comment: Speci men Type: BLOOD SPECIMENOrdering Facility: [facility] Address: [address] [place] [place] [address] Performed By: #### 2 4323-8, , 2776-08 ####[facility] LABCLIA [id number] [place] [address] [place] Calcium [Mass/Vol] 8.9 mg/dL Normal 8.5-10.2 [facility] Comment on above: Order Comment: Speci men Type: BLOOD SPECIMENOrdering Facility: [facility] Address: [address] [place] [address] Performed By: #### 2 4323-8, , 2776-08 ####[facility] LABCLIA [id number] [place] [address] [place] Chloride [Moles/Vol] 103 mmol/L Normal 97-105 [facility] Comment on above: Order Comment: Speci men Type: BLOOD SPECIMENOrdering Facility: [facility] Address: [address] Performed By: #### 2 4323-8, , 2776-08 ####[facility] LABCLIA [id number] [place] [address] [place] CO2 [Moles/Vol] 26 mmol/L Normal 22-30 [facility] Comment on above: Order Comment: Speci men Type: BLOOD SPECIMENOrdering Facility: [facility] Address: [address] [place] [address] Performed By: #### 2 4323-8, , 2776-08 ####[facility] LABCLIA [id number] [place] [id number] [place] [facility] Creatinine [Mass/Vol] 0.64 mg/dL Normal 0.58-0.96 [facility] Comment on above: Order Comment: Zay sandoval Type: BLOOD SPECIMENOrdering Facility: [facility] Address: [address] [id number] Performed By: #### 2 4323-8, , 2776-08 ####[facility] LABIA [id number] [address] Creatinine and Glomerular filtration rate.predicted panel (S/P/Bld) 87 mL/min/1.73m??? Normal >=60 [facility] Comment on above: Order Comment: Zay sandoval Type: BLOOD SPECIMENOrdering Facility: [facility] Address: [address] [place] [address] Result Comment: Marlyn mated Glomerular Filtration Rate [...] Performed By: #### 2 4323-8, , 2776-08 ####[facility] LABIA [id number] [place] [address] [place] Glucose [Mass/Vol] 93 mg/dL Normal 74-99 [facility] Comment on above: Order Comment: Zay sandoval Type: BLOOD SPECIMENOrdering Facility: [facility] Address: [address] [place] [address] Result Comment: The [place] [employer] (ADA) provides guidance for cutoff [...] Standards of Medical Care in Diabetes 2016, [place] [employer]. Diabetes Care. 2016.39(Suppl 1). Performed By: #### 2 4323-8, , 2776-08 ####[facility] LABCLIA [id number] [place] [address] [place] Potassium [Moles/Vol] 4.1 mmol/L Normal 3.7-5.1 [facility] Comment on above: Order Comment: Speci men Type: BLOOD SPECIMENOrdering Facility: [facility] Address: [address] [phone] Performed By: #### 2 4323-8, , 2776-08 ####[facility] LABCLIA [id number] [place] [address] [place] Protein [Mass/Vol] 6.4 g/dL Normal 6.3-8.0 [facility] Comment on above: Order Comment: Speci men Type: BLOOD SPECIMENOrdering Facility: [facility] Address: [address] Performed By: #### 2 4323-8, , 2776-08 ####[facility] LABCLIA [id number] [place] [id number] [place] Sodium [Moles/Vol] 140 mmol/L Normal 136-144 [facility] Comment on above: Order Comment: Speci men Type: BLOOD SPECIMENOrdering Facility: [facility] Address: [address] [place] [address] Performed By: #### 2 4323-8, , 2776-08 ####[facility] LABCLIA [id number] [place] [id number] [place] Urea nitrogen [Mass/Vol] 10 mg/dL Normal 7-21 [facility] Comment on above: Order Comment: Speci men Type: BLOOD SPECIMENOrdering Facility: [facility] Address: [address] [place] [address] Performed By: #### 2 4323-8, 69252-7, 2776- ####[facility] LABIA [id number] [place] [address] [place] Magnesium SerPl-ncon 04-13 Magnesium [Mass/Vol] 2.0 mg/dL Normal 1.7-2.3 [facility] Comment on above: Order Comment: Speci men Type: BLOOD SPECIMENOrdering Facility: [facility] Address: [address] [place] [address] Performed By: #### 2 4323-8, , 2776-08 ####[facility] LABIA [id number] [place] [address] [place] Phosphate SerPl-mCncon 04-13 Phosphate [Mass/Vol] 3.5 mg/dL Normal 2.7-4.8 [facility] Comment on above: Order Comment: Speci men Type: BLOOD SPECIMENOrdering Facility: [facility] Address: [address] [place], [place] [address] Performed By: #### 2 4323-8, , 2776-08 ####[facility] LABIA [id number] [place] [id number] [place] THERAPY NTon 04-13-2023 THERAPY NT Normal [facility] CBC panel Auto (Bld)on 04-12 Erythrocyte distribution width (RBC) [Ratio] 13.2 % Normal 11.5-15.0 [facility] Comment on above: Order Comment: Speci men Type: BLOOD SPECIMENOrdering Facility: [facility] Address: [address] [place] [address] Performed By: #### 5 8410-2 ####[facility] LABIA [id number] [place] [address] [place] Hematocrit (Bld) [Volume fraction] 33.4 % Low 36.0-46.0 [facility] Comment on above: Order Comment: Speci men Type: BLOOD SPECIMENOrdering Facility: [facility] Address: [address] [place] [address] Performed By: #### 5 8410-2 ####[facility] LABIA [id number] [place] [address] [place] Hemoglobin (Bld) [Mass/Vol] 10.8 g/dL Low 11.5-15.5 [facility] Comment on above: Order Comment: Speci men Type: BLOOD SPECIMENOrdering Facility: [facility] Address: [address] [place] [address] Performed By: #### 5 8410-2 ####[facility] LABIA [id number] [address] OF [facility] MCH (RBC) [Entitic mass] 32.8 pg Normal 26.0-34.0 [facility] Comment on above: Order Comment: Speci men Type: BLOOD SPECIMENOrdering Facility: [facility] Address: [address] [place] [address] Performed By: #### 5 8410-2 ####[facility] LABIA [id number] [address] [place] MCHC (RBC) [Mass/Vol] 32.3 g/dL Normal 30.5-36.0 [facility] Comment on above: Order Comment: Speci men Type: BLOOD SPECIMENOrdering Facility: [facility] Address: [address] [place] [address] Performed By: #### 5 8410-2 ####[facility] [id number] [address] [facility] MCV (RBC) [Entitic vol] 101.5 fL High 80.0-100.0 [facility] Comment on above: Order Comment: Speci men Type: BLOOD SPECIMENOrdering Facility: [facility] Address: [address] [place], [place] [address] Performed By: #### 5 8410-2 ####[facility] LABIA [id number] [place] [address] [place] Nucleated RBC (Bld) [#/Vol] 10*3/uL Normal <0.01 [facility] Comment on above: Order Comment: Speci men Type: BLOOD SPECIMENOrdering Facility: [facility] Address: [address] [place], [place] [address] Performed By: #### 5 8410-2 ####[facility] LABIA [id number] [place] [address] [place] Platelet mean volume (Bld) [Entitic vol] 10.5 fL Normal 9.0-12.7 [facility] Comment on above: Order Comment: Speci men Type: BLOOD SPECIMENOrdering Facility: [facility] Address: [address] [place], [place] [address] Performed By: #### 5 8410-2 ####[facility] LABIA [id number] [place] [address] [place] Platelets (Bld) [#/Vol] 305 10*3/uL Normal 150-400 [facility] Comment on above: Order Comment: Speci men Type: BLOOD SPECIMENOrdering Facility: [facility] Address: [address] [place], [place] [address] Performed By: #### 5 8410-2 ####[facility] LABCLIA [id number] [place] [address] [place] RBC (Bld) [#/Vol] 3.29 10*6/uL Low 3.90-5.20 [facility] Comment on above: Order Comment: Speci men Type: BLOOD SPECIMENOrdering Facility: [facility] Address: [address] [place] [address] Performed By: #### 5 8410-2 ####[facility] LABCLIA [id number] [place] [address] [place] WBC (Bld) [#/Vol] 6.23 10*3/uL Normal 3.70-11.00 [facility] Comment on above: Order Comment: Speci men Type: BLOOD SPECIMENOrdering Facility: [facility] Address: [address] [place] [address] Performed By: #### 5 8410-2 ####[facility] LABCLIA [id number] [place] [address] [place] [facility] Comprehensive metabolic 2000 panelon 04-12-2023 Albumin [Mass/Vol] 3.3 g/dL Low 3.9-4.9 [facility] Comment on above: Order Comment: Speci men Type: BLOOD SPECIMENOrdering Facility: [facility] Address: [address] [place], [place] [address] Performed By: #### 1 9123-9, 2777-1, 77467-1 ####[facility] LABCLIA [id number] [place] [address] [place] ALP [Catalytic activity/Vol] 58 U/L Normal 34-123 [facility] Comment on above: Order Comment: Speci men Type: BLOOD SPECIMENOrdering Facility: [facility] Address: [address] [place], [place] [address] Performed By: #### 1 9123-9, 2777-1, 53394-4 ####[facility] LABCLIA [id number] [address] [place] ALT [Catalytic activity/Vol] 9 U/L Normal 7-38 [facility] Comment on above: Order Comment: Speci men Type: BLOOD SPECIMENOrdering Facility: [facility] Address: [address] Performed By: #### 1 9123-9, 2777-1, 68147-5 ####[facility] LABIA [id number] [place] [address] [place] Anion gap [Moles/Vol] 12 mmol/L Normal 9-18 [facility] Comment on above: Order Comment: Speci men Type: BLOOD SPECIMENOrdering Facility: [facility] Address: [address] [place] [address] Performed By: #### 1 9123-9, 2777-1, 31874-4 ####[facility] LABIA [id number] [place] [address] [place] AST [Catalytic activity/Vol] 17 U/L Normal 13-35 [facility] Comment on above: Order Comment: Speci men Type: BLOOD SPECIMENOrdering Facility: [facility] Address: [address] [place] [address] Performed By: #### 1 9123-9, 2777-1, 15015-9 ####[facility] LABIA [id number] [place] [address] [place] Bilirubin [Mass/Vol] 0.6 mg/dL Normal 0.2-1.3 [facility] Comment on above: Order Comment: Speci men Type: BLOOD SPECIMENOrdering Facility: [facility] Address: [address] Performed By: #### 1 9123-9, 2777-, 24110-6 ####[facility] LABIA [id number] [place] [address] [place] Calcium [Mass/Vol] 8.7 mg/dL Normal 8.5-10.2 [facility] Comment on above: Order Comment: Speci men Type: BLOOD SPECIMENOrdering Facility: [facility] Address: [address] Performed By: #### 1 9123-9, 2777-, 70747-9 ####[facility] LABIA [id number] [place] [address] [place] Chloride [Moles/Vol] 101 mmol/L Normal 97-105 [facility] Comment on above: Order Comment: Speci men Type: BLOOD SPECIMENOrdering Facility: [facility] Address: [address] [place], [place] [address] Performed By: #### 1 9123-9, 2777, 73819-9 ####[facility] LABIA [id number] [place] [address] [place] CO2 [Moles/Vol] 26 mmol/L Normal 22-30 [facility] Comment on above: Order Comment: Speci men Type: BLOOD SPECIMENOrdering Facility: [facility] Address: [address] [place], [place] [address] Performed By: #### 1 9123-9, 2777, 68063-9 ####[facility] [id number] [place] [address] [place] Creatinine [Mass/Vol] 0.47 mg/dL Low 0.58-0.96 [facility] Comment on above: Order Comment: Speci men Type: BLOOD SPECIMENOrdering Facility: [facility] Address: [address] [place], [place] [address] Performed By: #### 1 9123-9, 2777-, 85036-5 ####[facility] [id number] [place] [address] [place] Creatinine and Glomerular filtration rate.predicted panel (S/P/Bld) 94 mL/min/1.73m??? Normal >=60 [facility] Comment on above: Order Comment: Speci men Type: BLOOD SPECIMENOrdering Facility: [facility] Address: [address] [place], [place] [address] Result Comment: Marlyn mated Glomerular Filtration Rate [...] GFR. Performed By: #### 1 9123-9, 2777-, 61575-5 ####[facility] LABIA [id number] [address] [address] [place] Glucose [Mass/Vol] 89 mg/dL Normal 74-99 [facility] Comment on above: Order Comment: Zay sandoval Type: BLOOD SPECIMENOrdering Facility: [facility] Address: [address] [place] [address] Result Comment: The [place] [employer] (ADA) provides guidance for cutoff [...] Standards of Medical Care in Diabetes 2016, [place] [employer]. Diabetes Care. 2016.39(Suppl 1). Performed By: #### 1 9123-9, 27702-06, ####[facility] LABIA [id number] [address] [address] [place] Potassium [Moles/Vol] 3.4 mmol/L Low 3.7-5.1 [facility] Comment on above: Order Comment: Zay sandoval Type: BLOOD SPECIMENOrdering Facility: [facility] Address: [address] [place] [address] Performed By: #### 1 9123-9, 27702-06, ####[facility] LABCLIA [id number] [place] [address] [place] Protein [Mass/Vol] 6.1 g/dL Low 6.3-8.0 [facility] Comment on above: Order Comment: Speci men Type: BLOOD SPECIMENOrdering Facility: [facility] Address: [address] [place] [address] Performed By: #### 1 9123-9, 27702-06, ####[facility] LABCLIA [id number] [place] [address] [place] Sodium [Moles/Vol] 139 mmol/L Normal 136-144 [facility] Comment on above: Order Comment: Speci men Type: BLOOD SPECIMENOrdering Facility: [facility] Address: [address] [place] [address] Performed By: #### 1 9123-9, 27702-06, ####[facility] LABIA [id number] [place] [address] [place] Urea nitrogen [Mass/Vol] 7 mg/dL Normal 7-21 [facility] Comment on above: Order Comment: Speci men Type: BLOOD SPECIMENOrdering Facility: [facility] Address: [address] [place] [address] Performed By: #### 1 9123-9, 27702-06, 92371-0 ####[facility] LABIA [id number] [place] [id number] [place] Magnesium SerPl-mCncon 04-12 Magnesium [Mass/Vol] 2.0 mg/dL Normal 1.7-2.3 [facility] Comment on above: Order Comment: Speci men Type: BLOOD SPECIMENOrdering Facility: [facility] Address: [address] [place] [address] Performed By: #### 1 9123-9, 27702-06, ####[facility] LABCLIA [id number] [place] [address] [place] Phosphate SerPl-mCncon 04-12 Phosphate [Mass/Vol] 3.2 mg/dL Normal 2.7-4.8 [facility] Comment on above: Order Comment: Speci men Type: BLOOD SPECIMENOrdering Facility: [facility] Address: [address] [place] [address] Performed By: #### 1 9123-9, 2777-1, 34941-3 ####[facility] LABCLIA [id number] [place] [address] [place] THERAPY NTon 04-12-2023 THERAPY NT Normal [facility] CASE MANAGEMon 04-11-2023 CASE MANAGEM Normal [facility] CBC panel Auto (Bld)on 04-11 Erythrocyte distribution width (RBC) [Ratio] 13.2 % Normal 11.5-15.0 [facility] Comment on above: Order Comment: Speci men Type: BLOOD SPECIMENOrdering Facility: [facility] Address: [address] [place] [address] Performed By: #### 5 8410-2 ####[facility] LABIA [id number] [place] [address] [place] Hematocrit (Bld) [Volume fraction] 34.2 % Low 36.0-46.0 [facility] Comment on above: Order Comment: Speci men Type: BLOOD SPECIMENOrdering Facility: [facility] Address: [address] [place], [place] [address] Performed By: #### 5 8410-2 ####[facility] LABIA [id number] [place] [address] [place] Hemoglobin (Bld) [Mass/Vol] 10.7 g/dL Low 11.5-15.5 [facility] Comment on above: Order Comment: Speci men Type: BLOOD SPECIMENOrdering Facility: [facility] Address: [address] Performed By: #### 5 8410-2 ####[facility] LABCLIA [id number] [address] MCH (RBC) [Entitic mass] 32.1 pg Normal 26.0-34.0 [facility] Comment on above: Order Comment: Speci men Type: BLOOD SPECIMENOrdering Facility: [facility] Address: [address] Performed By: #### 5 8410-2 ####[facility] LABIA [id number] [address] [place] MCHC (RBC) [Mass/Vol] 31.3 g/dL Normal 30.5-36.0 [facility] Comment on above: Order Comment: Speci men Type: BLOOD SPECIMENOrdering Facility: [facility] Address: [address] [place], [place] [address] Performed By: #### 5 8410-2 ####[facility] LABIA [id number] [place] [address] [place] MCV (RBC) [Entitic vol] 102.7 fL High 80.0-100.0 [facility] Comment on above: Order Comment: Speci men Type: BLOOD SPECIMENOrdering Facility: [facility] Address: [address] [place] [address] Performed By: #### 5 8410-2 ####[facility] LABIA [id number] [place] [address] [place] Nucleated RBC (Bld) [#/Vol] 10*3/uL Normal <0.01 [facility] Comment on above: Order Comment: Speci men Type: BLOOD SPECIMENOrdering Facility: [facility] Address: [address] [place], [place] [address] Performed By: #### 5 8410-2 ####[facility] LABCLIA [id number] [place] [address] [place] Platelet mean volume (Bld) [Entitic vol] 10.5 fL Normal 9.0-12.7 [facility] Comment on above: Order Comment: Speci men Type: BLOOD SPECIMENOrdering Facility: [facility] Address: [address] [place], [place] [address] Performed By: #### 5 8410-2 ####[facility] LABCLIA [id number] [place] [address] [place] Platelets (Bld) [#/Vol] 267 10*3/uL Normal 150-400 [facility] Comment on above: Order Comment: Speci men Type: BLOOD SPECIMENOrdering Facility: [facility] Address: [address] [place], [place] [address] Performed By: #### 5 8410-2 ####[facility] LABIA [id number] [place] [address] [place] RBC (Bld) [#/Vol] 3.33 10*6/uL Low 3.90-5.20 [facility] Comment on above: Order Comment: Speci men Type: BLOOD SPECIMENOrdering Facility: [facility] Address: [address] [place], [place] [address] Performed By: #### 5 8410-2 ####[facility] LABIA [id number] [place] [address] [place] WBC (Bld) [#/Vol] 5.53 10*3/uL Normal 3.70-11.00 [facility] Comment on above: Order Comment: Speci men Type: BLOOD SPECIMENOrdering Facility: [facility] Address: [address] [place], [place] [address] Performed By: #### 5 8410-2 ####[facility] LABIA [id number] [place] [address] [place] [facility] Comprehensive metabolic 2000 panelon 04-11-2023 Albumin [Mass/Vol] 3.3 g/dL Low 3.9-4.9 [facility] Comment on above: Order Comment: Speci men Type: BLOOD SPECIMENOrdering Facility: [facility] Address: [address] [place] [address] Performed By: #### 1 9123-9, 14987-0, 2777-1 ####[facility] LABCLIA [id number] [place] [address] [place] ALP [Catalytic activity/Vol] 59 U/L Normal 34-123 [facility] Comment on above: Order Comment: Speci men Type: BLOOD SPECIMENOrdering Facility: [facility] Address: [address] [place] [address] Performed By: #### 1 9123-9, 41637-2, 2777-1 ####[facility] LABCLIA [id number] [address] [place] ALT [Catalytic activity/Vol] 9 U/L Normal 7-38 [facility] Comment on above: Order Comment: Speci men Type: BLOOD SPECIMENOrdering Facility: [facility] Address: [address] [place] [address] Performed By: #### 1 9123-9, 62594-2, 277- ####[facility] LABCLIA [id number] [place] [address] [place] [facility] Anion gap [Moles/Vol] 12 mmol/L Normal 9-18 [facility] Comment on above: Order Comment: Speci men Type: BLOOD SPECIMENOrdering Facility: [facility] Address: [address] [place] [address] Performed By: #### 1 9123-9, 17762-9, 2777-1 ####[facility] LABCLIA [id number] [place] [address] [place] AST [Catalytic activity/Vol] 15 U/L Normal 13-35 [facility] Comment on above: Order Comment: Speci men Type: BLOOD SPECIMENOrdering Facility: [facility] Address: [address] [place] [address] Performed By: #### 1 9123-9, 49082-7, 2776- ####[facility] LABCLIA [id number] [place] [address] [place] Bilirubin [Mass/Vol] 0.6 mg/dL Normal 0.2-1.3 [facility] Comment on above: Order Comment: Speci men Type: BLOOD SPECIMENOrdering Facility: [facility] Address: [address] [place] [address] Performed By: #### 1 9123-9, 71267-0, 2776-08 ####[facility] LABCLIA [id number] [place] [address] [place] Calcium [Mass/Vol] 8.8 mg/dL Normal 8.5-10.2 [facility] Comment on above: Order Comment: Speci men Type: BLOOD SPECIMENOrdering Facility: [facility] Address: [address] [place] [address] Performed By: #### 1 9123-9, 47790-5, 2776-08 ####[facility] LABCLIA [id number] [place] [address] [place] Chloride [Moles/Vol] 103 mmol/L Normal 97-105 [facility] Comment on above: Order Comment: Speci men Type: BLOOD SPECIMENOrdering Facility: [facility] Address: [address] [place], [place] [address] Performed By: #### 1 9123-9, 01834-0, 2776-08 ####[facility] LABCLIA [id number] [place] [id number] [place] CO2 [Moles/Vol] 25 mmol/L Normal 22-30 [facility] Comment on above: Order Comment: Speci men Type: BLOOD SPECIMENOrdering Facility: [facility] Address: [address] [place] [address] Performed By: #### 1 9123-9, , 2776-08 ####[facility] LABCLIA [id number] [place] [address] [place] Creatinine [Mass/Vol] 0.46 mg/dL Low 0.58-0.96 [facility] Comment on above: Order Comment: Speci men Type: BLOOD SPECIMENOrdering Facility: [facility] Address: [address] [place] [address] Performed By: #### 1 23-9, , 2776-08 ####[facility] LABIA [id number] [place] [address] [place] Creatinine and Glomerular filtration rate.predicted panel (S/P/Bld) 94 mL/min/1.73m??? Normal >=60 [facility] Comment on above: Order Comment: Speci men Type: BLOOD SPECIMENOrdering Facility: [facility] Address: [address] [place] [address] Result Comment: Marlyn mated Glomerular Filtration Rate [...] actual GFR. Performed By: #### 1 9123-9, , 2776-08 ####[facility] LABIA [id number] [place] [address] [place] Glucose [Mass/Vol] 102 mg/dL High 74-99 [facility] Comment on above: Order Comment: Speci men Type: BLOOD SPECIMENOrdering Facility: [facility] Address: [address] Result Comment: The [place] [employer] (ADA) provides guidance for cutoff [...] Standards of Medical Care in Diabetes 2016, [place] [employer]. Diabetes Care. 2016.39(Suppl 1). Performed By: #### 1 9123-9, 68704-0, 2776-08 ####[facility] LABCLIA [id number] [place] [address] [place] Potassium [Moles/Vol] 3.7 mmol/L Normal 3.7-5.1 [facility] Comment on above: Order Comment: Speci men Type: BLOOD SPECIMENOrdering Facility: [facility] Address: [address] [place] [address] Performed By: #### 1 9123-9, , 2776-08 ####[facility] LABIA [id number] [place] [address] [place] Protein [Mass/Vol] 5.9 g/dL Low 6.3-8.0 [facility] Comment on above: Order Comment: Speci men Type: BLOOD SPECIMENOrdering Facility: [facility] Address: [address] Performed By: #### 1 9123-9, , 2776-08 ####[facility] LABCLIA [id number] [place] [address] [place] Sodium [Moles/Vol] 140 mmol/L Normal 136-144 [facility] Comment on above: Order Comment: Speci men Type: BLOOD SPECIMENOrdering Facility: [facility] Address: [address] Performed By: #### 1 9123-9, 83343-0, 2777- ####[facility] LABCLIA [id number] [place] [address] [place] Urea nitrogen [Mass/Vol] 5 mg/dL Low 7-21 [facility] Comment on above: Order Comment: Speci men Type: BLOOD SPECIMENOrdering Facility: [facility] Address: [address] [place] [address] Performed By: #### 1 9123-9, 90821-8, 27702-06 ####[facility] LABCLIA [id number] [place] [address] [place] Magnesium SerPl-mCncon 04-11 Magnesium [Mass/Vol] 1.9 mg/dL Normal 1.7-2.3 [facility] Comment on above: Order Comment: Speci men Type: BLOOD SPECIMENOrdering Facility: [facility] Address: [address] [place] [address] Performed By: #### 1 9123-9, 17150-1, 2777 ####[facility] LABCLIA [id number] [place] [address] [place] Phosphate SerPl-mCncon 04-11 Phosphate [Mass/Vol] 3.3 mg/dL Normal 2.7-4.8 [facility] Comment on above: Order Comment: Speci men Type: BLOOD SPECIMENOrdering Facility: [facility] Address: [address] [place], [place] [address] Performed By: #### 1 9123-9, 37908-1, 2777- ####[facility] LABCLIA [id number] [place] [address] [place] CBC panel Auto (Bld)on 04-10 Erythrocyte distribution width (RBC) [Ratio] 13.6 % Normal 11.5-15.0 [facility] Comment on above: Order Comment: Speci men Type: BLOOD SPECIMENOrdering Facility: [facility] Address: [address] [place] [address] Performed By: #### 5 8410-2 ####[facility] LABIA [id number] [address] STATES OF [facility] Hematocrit (Bld) [Volume fraction] 31.1 % Low 36.0-46.0 [facility] Comment on above: Order Comment: Speci men Type: BLOOD SPECIMENOrdering Facility: [facility] Address: [address] [place] [address] Performed By: #### 5 8410-2 ####[facility] LABIA [id number] [address] [place] Hemoglobin (Bld) [Mass/Vol] 9.8 g/dL Low 11.5-15.5 [facility] Comment on above: Order Comment: Speci men Type: BLOOD SPECIMENOrdering Facility: [facility] Address: [address] [place], [place] [address] Performed By: #### 5 8410-2 ####[facility] LABIA [id number] [address] [place] MCH (RBC) [Entitic mass] 32.5 pg Normal 26.0-34.0 [facility] Comment on above: Order Comment: Speci men Type: BLOOD SPECIMENOrdering Facility: [facility] Address: [address] [place], [place] [address] Performed By: #### 5 8410-2 ####[facility] LABIA [id number] [address] [place] MCHC (RBC) [Mass/Vol] 31.5 g/dL Normal 30.5-36.0 [facility] Comment on above: Order Comment: Speci men Type: BLOOD SPECIMENOrdering Facility: [facility] Address: [address] Performed By: #### 5 8410-2 ####[facility] LABIA [id number] [address] MCV (RBC) [Entitic vol] 103.0 fL High 80.0-100.0 [facility] Comment on above: Order Comment: Speci men Type: BLOOD SPECIMENOrdering Facility: [facility] Address: [address] Performed By: #### 5 8410-2 ####[facility] LABIA [id number] [place] [address] [place] Nucleated RBC (Bld) [#/Vol] 10*3/uL Normal <0.01 [facility] Comment on above: Order Comment: Speci men Type: BLOOD SPECIMENOrdering Facility: [facility] Address: [address] Performed By: #### 5 8410-2 ####[facility] LABIA [id number] [place] [address] [place] Platelet mean volume (Bld) [Entitic vol] 10.5 fL Normal 9.0-12.7 [facility] Comment on above: Order Comment: Speci men Type: BLOOD SPECIMENOrdering Facility: [facility] Address: [address] [place] [address] Performed By: #### 5 8410-2 ####[facility] LABCLIA [id number] [place] [address] [place] Platelets (Bld) [#/Vol] 231 10*3/uL Normal 150-400 [facility] Comment on above: Order Comment: Speci men Type: BLOOD SPECIMENOrdering Facility: [facility] Address: [address] Performed By: #### 5 8410-2 ####[facility] LABCLIA [id number] [place] [address] [place] RBC (Bld) [#/Vol] 3.02 10*6/uL Low 3.90-5.20 [facility] Comment on above: Order Comment: Speci men Type: BLOOD SPECIMENOrdering Facility: [facility] Address: [address] [place] [address] Performed By: #### 5 8410-2 ####[facility] [id number] [place] [address] [place] WBC (Bld) [#/Vol] 6.95 10*3/uL Normal 3.70-11.00 [facility] Comment on above: Order Comment: Speci men Type: BLOOD SPECIMENOrdering Facility: [facility] Address: [address] [place] [address] Performed By: #### 5 8410-2 ####[facility] [id number] [place] [address] [place] [address] CHEST W IVCON PEon 2022 CT CHEST W IVCON PE Normal [facility] Comprehensive metabolic 2000 panelon 04-10-2023 Albumin [Mass/Vol] 3.2 g/dL Low 3.9-4.9 [facility] Comment on above: Order Comment: Speci men Type: BLOOD SPECIMENOrdering Facility: [facility] Address: [address] [place] [address] Performed By: #### 2 4323-8, , 2776- ####[facility] [id number] [place] [address] [place] ALP [Catalytic activity/Vol] 51 U/L Normal 34-123 [facility] Comment on above: Order Comment: Speci men Type: BLOOD SPECIMENOrdering Facility: [facility] Address: [address] [place], [place] [address] Performed By: #### 2 43238, , 2776-08 ####[facility] LABCLIA [id number] [place] [address] [place] ALT [Catalytic activity/Vol] 9 U/L Normal 7-38 [facility] Comment on above: Order Comment: Speci men Type: BLOOD SPECIMENOrdering Facility: [facility] Address: [address] [place] [address] Performed By: #### 2 4323-8, , 2776-08 ####[facility] LABCLIA [id number] [place] [address] [place] Anion gap [Moles/Vol] 11 mmol/L Normal 9-18 [facility] Comment on above: Order Comment: Speci men Type: BLOOD SPECIMENOrdering Facility: [facility] Address: [address] [place] [address] Performed By: #### 2 432-8, , 2776-08 ####[facility] LABCLIA [id number] [place] [address] [place] AST [Catalytic activity/Vol] 19 U/L Normal 13-35 [facility] Comment on above: Order Comment: Speci men Type: BLOOD SPECIMENOrdering Facility: [facility] Address: [address] [place] [address] Performed By: #### 2 4323-8, , 2776-08 ####[facility] LABCLIA [id number] [place] [address] [place] Bilirubin [Mass/Vol] 0.6 mg/dL Normal 0.2-1.3 [facility] Comment on above: Order Comment: Speci men Type: BLOOD SPECIMENOrdering Facility: [facility] Address: [address] [place] [address] Performed By: #### 2 4323-8, , 2776-08 ####[facility] LABCLIA [id number] [place] [address] [place] Calcium [Mass/Vol] 8.9 mg/dL Normal 8.5-10.2 [facility] Comment on above: Order Comment: Speci men Type: BLOOD SPECIMENOrdering Facility: [facility] Address: [address] [place] [address] Performed By: #### 2 4323-8, , 2776-08 ####[facility] LABCLIA [id number] [place] [address] [place] Chloride [Moles/Vol] 102 mmol/L Normal 97-105 [facility] Comment on above: Order Comment: Speci men Type: BLOOD SPECIMENOrdering Facility: [facility] Address: [address] [place] [address] Performed By: #### 2 4323-8, , 2776-08 ####[facility] LABCLIA [id number] [place] [address] [place] CO2 [Moles/Vol] 26 mmol/L Normal 22-30 [facility] Comment on above: Order Comment: Speci men Type: BLOOD SPECIMENOrdering Facility: [facility] Address: [address] [place] [address] Performed By: #### 2 4323-8, , 2776-08 ####[facility] LABCLIA [id number] [place] [address] [place] Creatinine [Mass/Vol] 0.54 mg/dL Low 0.58-0.96 [facility] Comment on above: Order Comment: Speci men Type: BLOOD SPECIMENOrdering Facility: [facility] Address: [address] [place] [address] Performed By: #### 2 4323-8, , 2776- ####[facility] LABCLIA [id number] [place] [address] [place] Creatinine and Glomerular filtration rate.predicted panel (S/P/Bld) 91 mL/min/1.73m??? Normal >=60 [facility] Comment on above: Order Comment: Zay sandoval Type: BLOOD SPECIMENOrdering Facility: [facility] Address: [address] [place] [address] Result Comment: Marlyn mated Glomerular Filtration Rate [...] actual GFR. Performed By: #### 2 4323-8, 75887-9, 7- ####[facility] LABCLIA [id number] [place] [address] [place] Glucose [Mass/Vol] 107 mg/dL High 74-99 [facility] Comment on above: Order Comment: Zay sandoval Type: BLOOD SPECIMENOrdering Facility: [facility] Address: [address] [place] [address] Result Comment: The [place] [employer] (ADA) provides guidance for cutoff [...] Standards of Medical Care in Diabetes 2016, [place] [employer]. Diabetes Care. 2016.39(Suppl 1). Performed By: #### 2 4323-8, 43391-9, 2777- ####[facility] LABCLIA [id number] [place] [id number] [place] Potassium [Moles/Vol] 3.7 mmol/L Normal 3.7-5.1 [facility] Comment on above: Order Comment: Speci men Type: BLOOD SPECIMENOrdering Facility: [facility] Address: [address] [place] [address] Performed By: #### 2 4323-8, 96974-2, 2776- ####[facility] LABCLIA [id number] [place] [address] [place] Protein [Mass/Vol] 6.1 g/dL Low 6.3-8.0 [facility] Comment on above: Order Comment: Speci men Type: BLOOD SPECIMENOrdering Facility: [facility] Address: [address] [place] [address] Performed By: #### 2 4323-8, , 2776-08 ####[facility] LABCLIA [id number] [place] [address] [place] Sodium [Moles/Vol] 139 mmol/L Normal 136-144 [facility] Comment on above: Order Comment: Speci men Type: BLOOD SPECIMENOrdering Facility: [facility] Address: [address] [place], [place] [address] Performed By: #### 2 4323-8, , 2776-08 ####[facility] LABCLIA [id number] [place] [address] [place] Urea nitrogen [Mass/Vol] 6 mg/dL Low 7-21 [facility] Comment on above: Order Comment: Speci men Type: BLOOD SPECIMENOrdering Facility: [facility] Address: [address] [place], [place] [address] Performed By: #### 2 4323-8, , 2776-08 ####[facility] LABCLIA [id number] [place] [id number] [place] Magnesium SerPl-mCncon 04-10 Magnesium [Mass/Vol] 1.9 mg/dL Normal 1.7-2.3 [facility] Comment on above: Order Comment: Speci men Type: BLOOD SPECIMENOrdering Facility: [facility] Address: [address] [place] [address] Performed By: #### 2 4323-8, 59406-2, 2776-1 ####[facility] LABCLIA [id number] [place] [address] [place] Phosphate SerPl-mCncon 04-10 Phosphate [Mass/Vol] 2.5 mg/dL Low 2.7-4.8 [facility] Comment on above: Order Comment: Speci men Type: BLOOD SPECIMENOrdering Facility: [facility] Address: [address] [place] [address] Performed By: #### 2 4323-8, , 2776- ####[facility] LABCLIA [id number] [place] [address] [place] ALLIED HEALTHon 04-09-2023 ALLIED HEALTH Normal [facility] CASE MANAGEMon 04-09-2023 CASE MANAGEM Normal [facility] CBC panel Auto (Bld)on 04-09 Erythrocyte distribution width (RBC) [Ratio] 13.7 % Normal 11.5-15.0 [facility] Comment on above: Order Comment: Speci men Type: BLOOD SPECIMENOrdering Facility: [facility] Address: [address] [place] [address] Performed By: #### 5 8410-2 ####[facility] LABCLIA [id number] [place] [address] [place] Hematocrit (Bld) [Volume fraction] 33.0 % Low 36.0-46.0 [facility] Comment on above: Order Comment: Speci men Type: BLOOD SPECIMENOrdering Facility: [facility] Address: [address] [place] [address] Performed By: #### 5 8410-2 ####[facility] [id number] [place] [address] [place] Hemoglobin (Bld) [Mass/Vol] 10.5 g/dL Low 11.5-15.5 [facility] Comment on above: Order Comment: Speci men Type: BLOOD SPECIMENOrdering Facility: [facility] Address: [address] [place] [address] Performed By: #### 5 8410-2 ####[facility] [id number] [place] [address] [place] MCH (RBC) [Entitic mass] 32.4 pg Normal 26.0-34.0 [facility] Comment on above: Order Comment: Speci men Type: BLOOD SPECIMENOrdering Facility: [facility] Address: [address] [place] [address] Performed By: #### 5 8410-2 ####[facility] [id number] [address] [place] MCHC (RBC) [Mass/Vol] 31.8 g/dL Normal 30.5-36.0 [facility] Comment on above: Order Comment: Speci men Type: BLOOD SPECIMENOrdering Facility: [facility] Address: [address] [place] [address] Performed By: #### 5 8410-2 ####[facility] [id number] [place] [address] [place] MCV (RBC) [Entitic vol] 101.9 fL High 80.0-100.0 [facility] Comment on above: Order Comment: Speci men Type: BLOOD SPECIMENOrdering Facility: [facility] Address: [address] [place] [address] Performed By: #### 5 8410-2 ####[facility] [id number] [place] [address] [place] Nucleated RBC (Bld) [#/Vol] 10*3/uL Normal <0.01 [facility] Comment on above: Order Comment: Speci men Type: BLOOD SPECIMENOrdering Facility: [facility] Address: [address] [place], [place] [address] Performed By: #### 5 8410-2 ####[facility] LABCLIA [id number] [place] [address] [place] Platelet mean volume (Bld) [Entitic vol] 10.3 fL Normal 9.0-12.7 [facility] Comment on above: Order Comment: Speci men Type: BLOOD SPECIMENOrdering Facility: [facility] Address: [address] [place], [place] [address] Performed By: #### 5 8410-2 ####[facility] LABCLIA [id number] [place] [address] [place] Platelets (Bld) [#/Vol] 221 10*3/uL Normal 150-400 [facility] Comment on above: Order Comment: Speci men Type: BLOOD SPECIMENOrdering Facility: [facility] Address: [address] [place], [place] [address] Performed By: #### 5 8410-2 ####[facility] LABCLIA [id number] [place] [address] [place] RBC (Bld) [#/Vol] 3.24 10*6/uL Low 3.90-5.20 [facility] Comment on above: Order Comment: Speci men Type: BLOOD SPECIMENOrdering Facility: [facility] Address: [address] [place], [place] [address] Performed By: #### 5 8410-2 ####[facility] LABCLIA [id number] [place] [address] [place] WBC (Bld) [#/Vol] 6.76 10*3/uL Normal 3.70-11.00 [facility] Comment on above: Order Comment: Speci men Type: BLOOD SPECIMENOrdering Facility: [facility] Address: [address] [place], [place] [address] Performed By: #### 5 8410-2 ####[facility] LABCLIA [id number] [place] [address] [place] CNPNon 04-09-2023 CNPN Normal [facility] Comprehensive metabolic 2000 panelon 04-09-2023 Albumin [Mass/Vol] 3.3 g/dL Low 3.9-4.9 [facility] Comment on above: Order Comment: Speci men Type: BLOOD SPECIMENOrdering Facility: [facility] Address: [address] [place], [place] [address] Performed By: #### 2 4323-8, , 2776-08 ####[facility] LABCLIA [id number] [place] [address] [place] ALP [Catalytic activity/Vol] 50 U/L Normal 34-123 [facility] Comment on above: Order Comment: Speci men Type: BLOOD SPECIMENOrdering Facility: [facility] Address: [address] [place], [place] [address] Performed By: #### 2 4323-8, , 2776-08 ####[facility] LABCLIA [id number] [place] [address] [place] ALT [Catalytic activity/Vol] 9 U/L Normal 7-38 [facility] Comment on above: Order Comment: Speci men Type: BLOOD SPECIMENOrdering Facility: [facility] Address: [address] [place], [place] [address] Performed By: #### 2 4323-8, , 2776-08 ####[facility] LABCLIA [id number] [place] [id number] [place] Anion gap [Moles/Vol] 10 mmol/L Normal 9-18 [facility] Comment on above: Order Comment: Speci men Type: BLOOD SPECIMENOrdering Facility: [facility] Address: [address] [place] [address] Performed By: #### 2 4323-8, , 2776-08 ####[facility] LABCLIA [id number] [place] [address] [place] AST [Catalytic activity/Vol] 17 U/L Normal 13-35 [facility] Comment on above: Order Comment: Speci men Type: BLOOD SPECIMENOrdering Facility: [facility] Address: [address] [place], [place] [address] Performed By: #### 2 4323-8, , 2776-08 ####[facility] LABCLIA [id number] [place] [address] [place] Bilirubin [Mass/Vol] 0.7 mg/dL Normal 0.2-1.3 [facility] Comment on above: Order Comment: Speci men Type: BLOOD SPECIMENOrdering Facility: [facility] Address: [address] [place] [address] Performed By: #### 2 4323-8, , 2776-08 ####[facility] LABCLIA [id number] [place] [address] [place] Calcium [Mass/Vol] 8.7 mg/dL Normal 8.5-10.2 [facility] Comment on above: Order Comment: Speci men Type: BLOOD SPECIMENOrdering Facility: [facility] Address: [address] Performed By: #### 2 4323-8, , 2776-08 ####[facility] LABCLIA [id number] [place] [id number] [place] Chloride [Moles/Vol] 105 mmol/L Normal 97-105 [facility] Comment on above: Order Comment: Speci men Type: BLOOD SPECIMENOrdering Facility: [facility] Address: [address] Performed By: #### 2 4323-8, , 2776-08 ####[facility] LABCLIA [id number] [place] [address] [place] CO2 [Moles/Vol] 26 mmol/L Normal 22-30 [facility] Comment on above: Order Comment: Speci men Type: BLOOD SPECIMENOrdering Facility: [facility] Address: [address] [place], [place] [address] Performed By: #### 2 4323-8, , 2776-08 ####[facility] LABCLIA [id number] [address] [place] Creatinine [Mass/Vol] 0.53 mg/dL Low 0.58-0.96 [facility] Comment on above: Order Comment: Speci men Type: BLOOD SPECIMENOrdering Facility: [facility] Address: [address] [place] [address] Performed By: #### 2 4323-8, , 2776-08 ####[facility] LABIA [id number] [address] [place] Creatinine and Glomerular filtration rate.predicted panel (S/P/Bld) 91 mL/min/1.73m??? Normal >=60 [facility] Comment on above: Order Comment: Speci men Type: BLOOD SPECIMENOrdering Facility: [facility] Address: [address] [place] [address] Result Comment: Marlyn mated Glomerular Filtration Rate [...] Performed By: #### 2 4323-8, , 2776-08 ####[facility] LABCLIA [id number] [place] [address] [place] Glucose [Mass/Vol] 98 mg/dL Normal 74-99 [facility] Comment on above: Order Comment: Speci men Type: BLOOD SPECIMENOrdering Facility: [facility] Address: [address] [place] [address] Result Comment: The [place] [employer] (ADA) provides guidance for cutoff [...] Standards of Medical Care in Diabetes 2016, [place] [employer]. Diabetes Care. 2016.39(Suppl 1). Performed By: #### 2 4323-8, , 2776-08 ####[facility] LABIA [id number] [place] [address] [place] Potassium [Moles/Vol] 3.8 mmol/L Normal 3.7-5.1 [facility] Comment on above: Order Comment: Speci men Type: BLOOD SPECIMENOrdering Facility: [facility] Address: [address] [place], [place] [address] Performed By: #### 2 4323-8, , 2776-08 ####[facility] LABIA [id number] [place] [address] [place] Protein [Mass/Vol] 5.8 g/dL Low 6.3-8.0 [facility] Comment on above: Order Comment: Speci men Type: BLOOD SPECIMENOrdering Facility: [facility] Address: [address] [place] [address] Performed By: #### 2 4323-8, 94348-7, 2777-1 ####[facility] LABIA [id number] [place] [id number] [place] Sodium [Moles/Vol] 141 mmol/L Normal 136-144 [facility] Comment on above: Order Comment: Speci men Type: BLOOD SPECIMENOrdering Facility: [facility] Address: [address] [place], [place] [address] Performed By: #### 2 4323-8, 62019-2, 277- ####[facility] LABIA [id number] [place] [address] [place] Urea nitrogen [Mass/Vol] 7 mg/dL Normal 7-21 [facility] Comment on above: Order Comment: Speci men Type: BLOOD SPECIMENOrdering Facility: [facility] Address: [address] [place] [address] Performed By: #### 2 4323-8, 29913-6, 277- ####[facility] LABIA [id number] [place] [address] [place] Magnesium SerPl-mCncon 04-09 Magnesium [Mass/Vol] 1.9 mg/dL Normal 1.7-2.3 [facility] Comment on above: Order Comment: Speci men Type: BLOOD SPECIMENOrdering Facility: [facility] Address: [address] Performed By: #### 2 4323-8, 68801-2, 2777-1 ####[facility] LABIA [id number] [place] [id number] [place] Phosphate SerPl-mCncon 04-09 Phosphate [Mass/Vol] 2.4 mg/dL Low 2.7-4.8 [facility] Comment on above: Order Comment: Speci men Type: BLOOD SPECIMENOrdering Facility: [facility] Address: [address] [place] [address] Performed By: #### 2 4323-8, 74709-6, 2777-1 ####[facility] LABCLIA [id number] [place] [address] [place] THERAPY NTon 04-09-2023 THERAPY NT Normal [facility] THERAPY NT Normal [facility] CASE MGT INIT ASSESon 2022 CASE MGT INIT ASSES Normal [facility] CBC panel Auto (Bld)on 04-08 Erythrocyte distribution width (RBC) [Ratio] 13.8 % Normal 11.5-15.0 [facility] Comment on above: Order Comment: Speci men Type: BLOOD SPECIMENOrdering Facility: [facility] Address: [address] [place] [address] Performed By: #### 5 8410-2 ####[facility] LABCLIA [id number] [place] [address] [place] Hematocrit (Bld) [Volume fraction] 36.0 % Normal 36.0-46.0 [facility] Comment on above: Order Comment: Speci men Type: BLOOD SPECIMENOrdering Facility: [facility] Address: [address] [place] [address] Performed By: #### 5 8410-2 ####[facility] LABCLIA [id number] [place] [address] [place] Hemoglobin (Bld) [Mass/Vol] 11.8 g/dL Normal 11.5-15.5 [facility] Comment on above: Order Comment: Speci men Type: BLOOD SPECIMENOrdering Facility: [facility] Address: [address] [place] [address] Performed By: #### 5 8410-2 ####[facility] LABCLIA [id number] [place] [address] [place] MCH (RBC) [Entitic mass] 32.4 pg Normal 26.0-34.0 [facility] Comment on above: Order Comment: Speci men Type: BLOOD SPECIMENOrdering Facility: [facility] Address: [address] [place] [address] Performed By: #### 5 8410-2 ####[facility] LABCLIA [id number] [place] [address] [place] MCHC (RBC) [Mass/Vol] 32.8 g/dL Normal 30.5-36.0 [facility] Comment on above: Order Comment: Speci men Type: BLOOD SPECIMENOrdering Facility: [facility] Address: [address] [place] [address] Performed By: #### 5 8410-2 ####[facility] LABCLIA [id number] [place] [address] [place] MCV (RBC) [Entitic vol] 98.9 fL Normal 80.0-100.0 [facility] Comment on above: Order Comment: Speci men Type: BLOOD SPECIMENOrdering Facility: [facility] Address: [address] [place], [place] [address] Performed By: #### 5 8410-2 ####[facility] LABCLIA [id number] [place] [address] [place] Nucleated RBC (Bld) [#/Vol] 10*3/uL Normal <0.01 [facility] Comment on above: Order Comment: Speci men Type: BLOOD SPECIMENOrdering Facility: [facility] Address: [address] [place], [place] [address] Performed By: #### 5 8410-2 ####[facility] LABCLIA [id number] [place] [address] [place] Platelet mean volume (Bld) [Entitic vol] 9.6 fL Normal 9.0-12.7 [facility] Comment on above: Order Comment: Speci men Type: BLOOD SPECIMENOrdering Facility: [facility] Address: [address] [place] [address] Performed By: #### 5 8410-2 ####[facility] LABIA [id number] [place] [address] [place] Platelets (Bld) [#/Vol] 264 10*3/uL Normal 150-400 [facility] Comment on above: Order Comment: Speci men Type: BLOOD SPECIMENOrdering Facility: [facility] Address: [address] [place] [address] Performed By: #### 5 8410-2 ####[facility] LABIA [id number] [place] [address] [place] RBC (Bld) [#/Vol] 3.64 10*6/uL Low 3.90-5.20 [facility] Comment on above: Order Comment: Speci men Type: BLOOD SPECIMENOrdering Facility: [facility] Address: [address] [place] [address] Performed By: #### 5 8410-2 ####[facility] [id number] [address] [place] WBC (Bld) [#/Vol] 8.97 10*3/uL Normal 3.70-11.00 [facility] Comment on above: Order Comment: Speci men Type: BLOOD SPECIMENOrdering Facility: [facility] Address: [address] [place], [place] [address] Performed By: #### 5 8410-2 ####[facility] [id number] [address] STATES OF [facility] Erythrocyte distribution width (RBC) [Ratio] 14.0 % Normal 11.5-15.0 [facility] Comment on above: Order Comment: Speci men Type: BLOOD SPECIMENOrdering Facility: [facility] Address: [address] [place], [place] [address] Performed By: #### 5 8410-2 ####[facility] LABIA [id number] [place] [address] [place] Hematocrit (Bld) [Volume fraction] 35.4 % Low 36.0-46.0 [facility] Comment on above: Order Comment: Speci men Type: BLOOD SPECIMENOrdering Facility: [facility] Address: [address] [place] [address] Performed By: #### 5 8410-2 ####[facility] LABIA [id number] [place] [address] [place] Hemoglobin (Bld) [Mass/Vol] 11.7 g/dL Normal 11.5-15.5 [facility] Comment on above: Order Comment: Speci men Type: BLOOD SPECIMENOrdering Facility: [facility] Address: [address] [place] [address] Performed By: #### 5 8410-2 ####[facility] [id number] [address] [place] MCH (RBC) [Entitic mass] 33.2 pg Normal 26.0-34.0 [facility] Comment on above: Order Comment: Speci men Type: BLOOD SPECIMENOrdering Facility: [facility] Address: [address] [place] [address] Performed By: #### 5 8410-2 ####[facility] [id number] [place] [address] [place] MCHC (RBC) [Mass/Vol] 33.1 g/dL Normal 30.5-36.0 [facility] Comment on above: Order Comment: Speci men Type: BLOOD SPECIMENOrdering Facility: [facility] Address: [address] [place] [address] Performed By: #### 5 8410-2 ####[facility] [id number] [address] [place] MCV (RBC) [Entitic vol] 100.6 fL High 80.0-100.0 [facility] Comment on above: Order Comment: Speci men Type: BLOOD SPECIMENOrdering Facility: [facility] Address: [address] [place], [place] [address] Performed By: #### 5 8410-2 ####[facility] LABIA [id number] [place] [address] [place] Nucleated RBC (Bld) [#/Vol] 10*3/uL Normal <0.01 [facility] Comment on above: Order Comment: Speci men Type: BLOOD SPECIMENOrdering Facility: [facility] Address: [address] [place], [place] [address] Performed By: #### 5 8410-2 ####[facility] LABIA [id number] [place] [address] [place] Platelet mean volume (Bld) [Entitic vol] 10.0 fL Normal 9.0-12.7 [facility] Comment on above: Order Comment: Speci men Type: BLOOD SPECIMENOrdering Facility: [facility] Address: [address] [place], [place] [address] Performed By: #### 5 8410-2 ####[facility] LABIA [id number] [place] [address] [place] Platelets (Bld) [#/Vol] 277 10*3/uL Normal 150-400 [facility] Comment on above: Order Comment: Speci men Type: BLOOD SPECIMENOrdering Facility: [facility] Address: [address] [place], [place] [address] Performed By: #### 5 8410-2 ####[facility] LABIA [id number] [place] [address] [place] RBC (Bld) [#/Vol] 3.52 10*6/uL Low 3.90-5.20 [facility] Comment on above: Order Comment: Speci men Type: BLOOD SPECIMENOrdering Facility: [facility] Address: [address] Performed By: #### 5 8410-2 ####[facility] LABCLIA [id number] [place] [address] [place] WBC (Bld) [#/Vol] 9.47 10*3/uL Normal 3.70-11.00 [facility] Comment on above: Order Comment: Speci men Type: BLOOD SPECIMENOrdering Facility: [facility] Address: [address] [place], [place] [address] Performed By: #### 5 8410-2 ####[facility] LABCLIA [id number] [place] [address] [place] Comprehensive metabolic 2000 panelon 04-08-2023 Albumin [Mass/Vol] 3.7 g/dL Low 3.9-4.9 [facility] [facility] Comment on above: Order Comment: Speci men Type: BLOOD SPECIMENOrdering Facility: [facility] Address: [address] [place], [place] [address] Performed By: #### 2 4323-8, 2777-1, 71191-2 ####[facility] LABIA [id number] [place] [address] [place] ALP [Catalytic activity/Vol] 58 U/L Normal 34-123 [facility] Comment on above: Order Comment: Speci men Type: BLOOD SPECIMENOrdering Facility: [facility] Address: [address] [place], [place] [address] Performed By: #### 2 4323-8, 2777-1, 81641-8 ####[facility] LABIA [id number] [address] [place] ALT [Catalytic activity/Vol] 9 U/L Normal 7-38 [facility] Comment on above: Order Comment: Speci men Type: BLOOD SPECIMENOrdering Facility: [facility] Address: [address] [place], [place] [address] Performed By: #### 2 4323-8, 2777-1, ####[facility] LABIA [id number] [place] [address] [place] Anion gap [Moles/Vol] 16 mmol/L Normal 9-18 [facility] Comment on above: Order Comment: Speci men Type: BLOOD SPECIMENOrdering Facility: [facility] Address: [address] Performed By: #### 2 4323-8, 27702-06, ####[facility] LABIA [id number] [place] [address] [place] AST [Catalytic activity/Vol] 19 U/L Normal 13-35 [facility] Comment on above: Order Comment: Speci men Type: BLOOD SPECIMENOrdering Facility: [facility] Address: [address] Performed By: #### 2 4323-8, 27702-06, ####[facility] LABIA [id number] [place] [address] [place] Bilirubin [Mass/Vol] 0.6 mg/dL Normal 0.2-1.3 [facility] Comment on above: Order Comment: Speci men Type: BLOOD SPECIMENOrdering Facility: [facility] Address: [address] Performed By: #### 2 4323-8, 27702-06, ####[facility] LABIA [id number] [place] [id number] [place] Calcium [Mass/Vol] 9.0 mg/dL Normal 8.5-10.2 [facility] Comment on above: Order Comment: Speci men Type: BLOOD SPECIMENOrdering Facility: [facility] Address: [address] Performed By: #### 2 4323-8, 2777, ####[facility] LABCLIA [id number] [place] [address] [place] Chloride [Moles/Vol] 103 mmol/L Normal 97-105 [facility] Comment on above: Order Comment: Speci men Type: BLOOD SPECIMENOrdering Facility: [facility] Address: [address] [place], [place] [address] Performed By: #### 2 4323-8, 27702-06, ####[facility] LABIA [id number] [place] [address] [place] CO2 [Moles/Vol] 20 mmol/L Low 22-30 [facility] Comment on above: Order Comment: Speci men Type: BLOOD SPECIMENOrdering Facility: [facility] Address: [address] [place], [place] [address] Performed By: #### 2 4323-8, 27702-06, ####[facility] [id number] [place] [address] [place] Creatinine [Mass/Vol] 0.56 mg/dL Low 0.58-0.96 [facility] Comment on above: Order Comment: Speci men Type: BLOOD SPECIMENOrdering Facility: [facility] Address: [address] [place], [place] [address] Performed By: #### 2 4323-8, 27702-06, ####[facility] [id number] [place] [address] [place] Creatinine and Glomerular filtration rate.predicted panel (S/P/Bld) 90 mL/min/1.73m??? Normal >=60 [facility] Comment on above: Order Comment: Speci men Type: BLOOD SPECIMENOrdering Facility: [facility] Address: [address] [place] [address] Result Comment: Marlyn mated Glomerular Filtration Rate [...] actual GFR. Performed By: #### 2 4323-8, 2777-, ####[facility] LABCLIA [id number] [place] [id number] [place] Glucose [Mass/Vol] 132 mg/dL High 74-99 [facility] Comment on above: Order Comment: Zay sandoval Type: BLOOD SPECIMENOrdering Facility: [facility] Address: [address] [place], [place] [address] Result Comment: The [place] [employer] (ADA) provides guidance for cutoff [...] Standards of Medical Care in Diabetes 2016, [place] [employer]. Diabetes Care. 2016.39(Suppl 1). Performed By: #### 2 4323-8, 2777, ####[facility] LABCLIA [id number] [address] [address] [place] Potassium [Moles/Vol] 4.1 mmol/L Normal 3.7-5.1 [facility] Comment on above: Order Comment: Zay sandoval Type: BLOOD SPECIMENOrdering Facility: [facility] Address: [address] [place] [address] Performed By: #### 2 4323-8, 2777, ####[facility] LABCLIA [id number] [address] [address] [place] Protein [Mass/Vol] 6.2 g/dL Low 6.3-8.0 [facility] Comment on above: Order Comment: Speci men Type: BLOOD SPECIMENOrdering Facility: [facility] Address: [address] [place] [address] Performed By: #### 2 4323-8, 2777, ####[facility] LABCLIA [id number] [place] [address] [place] Sodium [Moles/Vol] 139 mmol/L Normal 136-144 [facility] Comment on above: Order Comment: Speci men Type: BLOOD SPECIMENOrdering Facility: [facility] Address: [address] [place] [address] Performed By: #### 2 4323-8, 27702-06, ####[facility] LABCLIA [id number] [place] [address] [place] Urea nitrogen [Mass/Vol] 9 mg/dL Normal 7-21 [facility] Comment on above: Order Comment: Speci men Type: BLOOD SPECIMENOrdering Facility: [facility] Address: [address] [place] [address] Performed By: #### 2 4323-8, 2777, ####[facility] LABCLIA [id number] [address] [address] [place] Magnesium SerPl-mCncon 04-08 Magnesium [Mass/Vol] 1.9 mg/dL Normal 1.7-2.3 [facility] Comment on above: Order Comment: Speci men Type: BLOOD SPECIMENOrdering Facility: [facility] Address: [address] [place] [address] Performed By: #### 2 4323-8, 2777, 64224-4 ####[facility] LABCLIA [id number] [place] [address] [place] NURSING PROGon 04-08-2023 NURSING PROG Normal [facility] Phosphate SerPl-mCncon 04-08 Phosphate [Mass/Vol] 3.8 mg/dL Normal 2.7-4.8 [facility] Comment on above: Order Comment: Speci men Type: BLOOD SPECIMENOrdering Facility: [facility] Address: [address] [place] [address] Performed By: #### 2 4323-8, 2777-1, 78594-3 ####[facility] LABCLIA [id number] [address] [place] THERAPY NTon 04-08-2023 THERAPY NT Normal [facility] THERAPY NT Normal [facility] XR CHEST 1V FRONTAL PORTon 0 04-08-2023 XR CHEST 1V FRONTAL PORT Normal [facility] ANES POSTPROC EVALon 023 ANES POSTPROC EVAL Normal [facility] ANES PRE-OPon 04-07-2023 ANES PRE-OP Normal [facility] BRIEF OP NOTon 04-07-2023 BRIEF OP NOT Normal [facility] CONFIRM BLOOD TYPEon 023 ABO A Normal [facility] Comment on above: Order Comment: Speci men Type: BLOOD SPECIMENOrdering Facility: [facility] Address: [address] [place] [address] Performed By: #### C ONABO ####[facility] BANKIA [id number] [address] [place] Rh Nom (Bld) Positive Normal [facility] Comment on above: Order Comment: Speci men Type: BLOOD SPECIMENOrdering Facility: [facility] Address: [address] [place] [address] Performed By: #### C ONABO ####[facility] MAIN BLOOD BANKCLIA [id number] [address] [place] CYTOLOGY NON-GYNon CASE REPORT Normal [facility] Comment on above: Order Comment: Speci men Type: SPECIMEN OBTAINED BY LAVAGEOrdering Facility: [facility] Address: [address] [place], [place] [address] Result Comment: [facility] Cytology Report Case: [id number] Provider: Eliot Castillo MD Collected: 04/07/2023 12:23 PMOrdering Location: Admitting Received: 04/07/2023 02:37 PMPathologist: Catina Pyle MDSpecimen: PELVIC WASHING Performed By: #### C YTONON ####[facility] LABCLIA [id number] [address] STATES [facility] CLINICAL HISTORY Normal [facility] Comment on above: Order Comment: Speci men Type: SPECIMEN OBTAINED BY LAVAGEOrdering Facility: [facility] Address: [address] [place], [place] [address] Result Comment: Pre- op diagnosis:Ovarian mass [N83.8]Preop examination [Z01.818] Performed By: #### C YTONON ####[facility] LABCLIA [id number] [address] FINAL DIAGNOSIS Normal [facility] Comment on above: Order Comment: Speci men Type: SPECIMEN OBTAINED BY LAVAGEOrdering Facility: [facility] Address: [address] [place], [place] [address] Result Comment: A - PELVIC WASHING Negative for malignant cells.The following cell blocks were associated with this case:A1Cell Block, Alcohol Fixed Performed By: #### C YTONON ####[facility] LABCLIA [id number] [address] OF [facility] FINAL PERFORMING LAB Normal [facility] Comment on above: Order Comment: Speci men Type: SPECIMEN OBTAINED BY LAVAGEOrdering Facility: [facility] Address: [address] [place] [address] Result Comment: Tech nical component, syrup blender screening performed at [facility], [facility] [place] [address] CLIA# [id number] interpretation performed at [facility], [address] [place] [address] CLIA# [id number] Director: Antonio Esparza M.D. Performed By: #### C YTONON ####[facility] LABCLIA [id number] [address] [place] GROSS DESCRIPTION Normal [facility] Comment on above: Order Comment: Speci men Type: SPECIMEN OBTAINED BY LAVAGEOrdering Facility: [facility] Address: [address] [place] [address] Result Comment: Ash RYAN [id number] cc cloudy red fluid with material. ThinPrep and Cell Block prepared. Performed By: #### C YTONON ####[facility] LABCLIA [id number] [place] [address] [place] OPERATIVE NOon 04-07-2023 OPERATIVE NO Normal [facility] SURGICAL PATHOLOGYon 023 CASE REPORT Normal [facility] Comment on above: Order Comment: Speci men Type: TISSUE SPECIMENOrdering Facility: [facility] Address: [address] [place] [address] Result Comment: Surg ical Pathology Report Case: [id number] Provider: Eliot Castillo MD Collected: 04/07/2023 12:27 [...] diaphram peritoneum biopsy Performed By: #### S ####[facility] LABCLIA [id number] [address] CLINICAL HISTORY Normal [facility] Comment on above: Order Comment: Speci men Type: TISSUE SPECIMENOrdering Facility: [facility] Address: [address] [place] [address] Result Comment: Pre- op diagnosis:Ovarian mass [N83.8]Preop examination [Z01.818] Performed By: #### S ####[facility] LABIA [id number] [address] DI[address]NOSIS COM[address] Dr. Nicole Maher review d selected slides from part A and agrees with the diagnosis. Normal [facility] Comment on above: Order Comment: Speci men Type: TISSUE SPECIMENOrdering Facility: [facility] Address: [address] [place] [address] Performed By: #### S ####[facility] [id number] [address] FINAL DIAGNOSIS Normal [facility] Comment on above: Order Comment: Speci men Type: TISSUE SPECIMENOrdering Facility: [facility] Address: [address] [place] [address] Result Comment: A. R ight ovary and [...] Benign fibroadipose tissue. Performed By: #### S ####[facility] LABCLIA [id number] [place] [address] [place] FINAL PERFORMING LAB Normal [facility] Comment on above: Order Comment: Speci men Type: TISSUE SPECIMENOrdering Facility: [facility] Address: [address] [place] [address] Result Comment: Diag nostic interpretation performed at [facility], [address] [place] [address] CLIA# [id number] Director: Antonio Esparza M.D. Performed By: #### S ####[facility] LABCLIA [id number] [place] [address] [place] GROSS DESCRIPTION Normal [facility] Comment on above: Order Comment: Speci men Type: TISSUE SPECIMENOrdering Facility: [facility] Address: [place] [address] Result Comment: A. F ALLOPIAN TUBE AND [...] The external surface of the mass is upu-lido-axjau and smooth. Serial sectioning of the mass [...] the ovary ends and the solid mass begins.Test Engine Evaluator sections are submitted as follows:A 2-11 plastic products sales representative sections of massA 12-13 possible residual [id number] fallopian tube fimbriated end bisected and totally submitted with plastic products sales representative cross-sectionMW 04/08/2023. UTERUS CERVIX WITH [...] with a crinkled appearance ovarian parenchyma is unremarkable.[employer] Evaluator sections are submitted as follows:B1 cervix 6:00B2 cervix 12:00B3 anterior uterine wallB4 posterior uterine wallB5 left ovaryB6 left fallopian tube fimbriated end bivalved and totally submitted and plastic products sales representative cross-sectionMW 04/08/2023. PERITONEUM BIOPSYReceived fresh [...] yellow-brown and lobulated. Sectioning reveals a unremarkable lumen.[employer] Evaluator sections are submitted as follows:M1 inked proximal resection margin and mesoappendiceal resection marginM2 entire distal tip, bisected and central cross-sections through lumenGross examination performed at [place] [address] [place] [id number] CLIA# [id number] 04/07/23 3:59 PMN. OMENTUM RESECTIONReceived fresh, labeled "omentum resection" is an unoriented, lobulated portion of adipose tissue, consistent with omentum, measuring 25.0 x 15.0 x 0.6 cm. Sectioning reveals soft, de souza, homogenous cut surfaces consisting entirely of adipose tissue. [employer] Evaluator sections are submitted in cassettes N1-N6.AKA April 07, 2023 2:53 PMGross examination performed at [facility], [facility] [place], [place] [address]W. PERITONEUM BIOPSYReceived fresh labeled "right diaphragm peritoneum biopsy" irregular segment of de souza-pink membranous soft tissue measuring 0.3 x 0.2 x 0.1 cm. Specimen is entirely submitted in O1[place] [address] CLIA# [id number] 04/07/23 3:55 PM Performed By: #### S ####[facility] [id number] [address] INTRAOPERATIVE DIAGNOSIS Normal [facility] Comment on above: Order Comment: Speci men Type: TISSUE SPECIMENOrdering Facility: [facility] Address: [address] [place] [address] Result Comment: A. 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 Juanito Will).Intraoperative diagnosis performed at [facility], [address] [place], [place] [address]B. UTERUS CERVIX WITH FALLOPIAN TUBE AND OVARY LEFTFrozen section cancelled per Dr. Juanito Will. Grossly normal endometrium. Discussed with Dr. Castillo.Intraoperative diagnosis performed at [place] [address] Performed By: #### S ####[facility] [id number] [address] SYNOPTIC REPORT Normal [facility] Comment on above: Order Comment: Speci men Type: TISSUE SPECIMENOrdering Facility: [facility] Address: [address] [place] [address] Result Comment: OVAR Y or FALLOPIAN TUBE or PRIMARY PERITONEUMOVARY OR FALLOPIAN TUBE OR PRIMARY PERITONEUM: RESECTION - All Zkoifilyq1xv Edition - Protocol posted: 10/28/2022SPECIMEN Procedure: Total [...] pathology report. pT Category: pT1c2 pN Category: [id number] STAGE FIGO Stage: IC2 Performed By: #### S ####[facility] LABCLIA [id number] [place] [address] [place] CNPNon 04-06-2023 CNPN Normal [facility] HISTORY PHYSICALon HISTORY PHYSICAL Normal [facility] 03-24-2023 CNPN Telephone (AGCARDPOB ) ----- STEFANO WASHINGTON ([id number]) 1940 F Date Time Provider Department 03/24/23 DARI ARRIAGA During your visit today, we recorded the following information about you: Nanci Calloway 03/24/2023 2:37 PM Signed Received CC in [facility] but patient will be receiving services elsewhere [...] Status:Closed by NANCI CALLOWAY on 03/24/23 Normal [facility] ECG COMPLETEon 03-22-2023 Atrial Rate 99 BPM [facility] Calculated P [place] 39 degrees [facility] Calculated R [place] 114 degrees [facility] Calculated T [place] 6 degrees [facility]-R Interval 177 ms [facility] QRS Duration 133 ms [facility] QT Interval 374 ms [facility] QTC Calculation (Bazett) 483 ms [facility] Ventricular Rate 100 BPM [facility] CNPNon 03-16-2023 CNPN Normal [facility] CNCOon 03-10-2023 CNCO Letter Text Normal [facility] CNPNon 03-10-2023 CNPN Normal [facility] CT ABD/PEL W IVCONon 023 Radiology Result ACTIONABLE Abnormal [facility] ABD/PEL W IVCON Invalid Interpretation Code [facility] CNPNon 02-26-2023 CNPN Normal [facility] CNPNon 02-02-2023 CNPN Normal [facility] CNTHERAPYon 02-02-2023 CNTHERAPY Normal [facility] XR Lumbar spine 3 Viewson IMPRESSION: 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 COMPRESSION FRACTURE OF THE T11 VERTEBRAL BODY. Console Assembler: PSCB Transcribe Date/Time: Jan 30 2023 1:51P Dictated by : CHRISTOPHER GIRALDO MD This examination was interpreted and the report reviewed and electronically signed by: CHRISTOPHER GIRALDO MD on Jan 30 2023 1:56PM [facility] DIVISION OF RADIOLOGY * * *Final [...] and thoracic spine. DIVISION OF RADIOLOGY Provider, [facility] Juan [facility] - 01/30/2023 * * *Final Report* * [...] COMPRESSION FRACTURE OF THE T11 VERTEBRAL BODY. Console Assembler: [facility] Transcribe Date/Time: Jan 30 2023 1:51P Dictated by : CHRISTOPHER GIRALDO MD This examination was interpreted and the report reviewed and electronically signed by: CHRISTOPHER GIRALDO MD on Jan 30 2023 1:56PM EST [facility] XR Lumbar spine 3 ViewsOrder ed By: Ccf Provider on 01-30-2023 [facility] CNOVon 01-27-2023 CNOV Normal [facility] CNPNon 01-27-2023 CNPN Normal [facility] XR LUMBAR 3V AP/LAT/L5-S1on 01-27-2023 XR LUMBAR 3V AP/LAT/L5-S1 Normal [facility] XR LUMBAR GENERAL 3V AP/LAT/ L5-S1on 01-27-2023 [facility] XR Lumbar spine 3 Viewson Radiology Study observation (narrative) [facility] Bacteria Ur Culton 3 Bacteria identified Cx Nom (U) Normal [facility] Comment on above: Performed By: #### 6 30-4 ####[facility] LABCLIA [id number] [address] [place] CNPNon 01-25-2023 CNPN Normal [facility] XR Chest PA and Lateralon IMPRESSION: 1. No pleural effusion or consolidation 2. Large hiatal hernia Console Assembler: [facility] Transcribe Date/Time: Jul 20 2022 8:31A Dictated by : JANAY DESAI MD This examination was interpreted and the report reviewed and electronically signed by: JANAY DESAI MD on Jul 20 2022 8:32AM EST DIVISION OF RADIOLOGY * * *Final Report* [...] Large hiatal hernia. DIVISION OF RADIOLOGY Provider, [facility] - 07/20/2022 * * *Final Report* [...] effusion or consolidation 2. Large hiatal hernia Console Assembler: PSCB Transcribe Date/Time: Jul 20 2022 8:31A Dictated by : JANAY DESAI MD This examination was interpreted and the report reviewed and electronically signed by: JANAY DESAI MD on Jul 20 2022 8:32AM EST [facility] Radiology Study observation (narrative) [facility] XR Chest PA and LateralOrder ed By: Ccf Provider on 07-20-2022 [facility] LIPID PANEL, NONFASTINGon Cholesterol [Mass/Vol] 238 mg/dL High <200 mg/dL [facility] HDL Cholesterol, Nonfasting 64 mg/dL >39 mg/dL [facility] LDL Cholesterol, Nonfasting 127 mg/dL High <100 mg/dL [facility] LDL/HDL Ratio, Nonfasting 1.98 mg/dL <2.54 mg/dL [facility] Non HDL Cholesterol, Nonfasting 174 mg/dL High <130 mg/dL [facility] Total Chol/HDL Ratio, Nonfasting 3.72 mg/dL <5.10 mg/dL [facility] Triglycerides, Nonfasting 235 mg/dL High <150 mg/dL [facility] VLDL Cholesterol, Nonfasting 47 mg/dL High <30 mg/dL [facility] TSH BLDon 06-27-2022 TSH Qn 3.260 m[IU]/L 0.270 - 4.200 mIU/L [facility] Urinalysis complete panel (U )on 12-13-2021 Bilirubin Ql (U) Negative Negative [facility] Clarity (Unsp spec) Clear Clear [facility] Color (U) Light Yellow Yellow [facility] Epithelial cells LM.HPF (Urine sed) [#/Area] Few [facility] Glucose Test strip (U) [Mass/Vol] Negative Negative [facility] Hemoglobin Ql (U) Negative Negative [facility] Ketones Ql (U) Negative Negative [facility] Leukocyte esterase Test strip Ql (U) Negative Negative [facility] Nitrite Ql (U) Negative Negative [facility] pH (U) 6.0 [pH] 5.0 - 8.0 [facility] Protein (U) [Mass/Vol] Negative Negative [facility] RBC LM.HPF (Urine sed) [#/Area] 0-3 /HPF 0-3 /HPF [facility] Specific gravity (U) [Rel density] 1.006 1.005 - 1.030 [facility] Urobilinogen Ql (U) Negative Negative [facility] WBC LM.HPF (Urine sed) [#/Area] 0-5 /HPF 0-5 /HPF [facility] CBC W Auto Differential pane l (Bld)on 12-12-2021 Abs Immature Gran <0.03 <0.10 k/uL [facility] Basophils (Bld) [#/Vol] 0.06 10*3/uL <0.11 k/uL [facility] Basophils/100 WBC (Bld) 1.2 % [facility] Differential cell count method Nom (Bld) Auto [facility] Eosinophils (Bld) [#/Vol] 0.13 10*3/uL <0.46 k/uL [facility] Eosinophils/100 WBC (Bld) 2.6 % [facility] Erythrocyte distribution width (RBC) [Ratio] 14.2 % 11.5 - 15.0 % [facility] Hematocrit (Bld) [Volume fraction] 39.6 % 36.0 - 46.0 % [facility] Hemoglobin (Bld) [Mass/Vol] 12.6 g/dL 11.5 - 15.5 g/dL [facility] Immature Gran % 0.4 % [facility] [facility] Lymphocytes (Bld) [#/Vol] 1.67 10*3/uL 1.00 - 4.00 k/uL [facility] Lymphocytes/100 WBC (Bld) 33.7 % [facility] MCH (RBC) [Entitic mass] 31.0 pg 26.0 - 34.0 pg [facility] MCHC (RBC) [Mass/Vol] 31.8 g/dL 30.5 - 36.0 g/dL [facility] MCV (RBC) [Entitic vol] 97.5 fL 80.0 - 100.0 fL [facility] Monocytes (Bld) [#/Vol] 0.42 10*3/uL <0.87 k/uL [facility] Monocytes/100 WBC (Bld) 8.5 % [facility] Neutrophils (Bld) [#/Vol] 2.65 10*3/uL 1.45 - 7.50 k/uL [facility] Neutrophils/100 WBC (Bld) 53.6 % [facility] Nucleated RBC (Bld) [#/Vol] 10*3/uL <0.01 k/uL [facility] Nucleated RBC/100 WBC (Bld) [Ratio] 0.0 /100 WBC [facility] Platelet mean volume (Bld) [Entitic vol] 10.9 fL 9.0 - 12.7 fL [facility] Platelets (Bld) [#/Vol] 239 10*3/uL 150 - 400 k/uL [facility] RBC (Bld) [#/Vol] 4.06 10*6/uL 3.90 - 5.20 m/uL [facility] WBC (Bld) [#/Vol] 4.95 10*3/uL 3.70 - 11.00 k/uL [facility] Comprehensive metabolic 2000 panelon 12-12-2021 Albumin [Mass/Vol] 4.7 g/dL 3.9 - 4.9 g/dL [facility] ALP [Catalytic activity/Vol] 66 U/L 34 - 123 U/L [facility] ALT [Catalytic activity/Vol] 19 U/L 7 - 38 U/L [facility] Anion gap [Moles/Vol] 12 mmol/L 9 - 18 mmol/L [facility] AST [Catalytic activity/Vol] 30 U/L 13 - 35 U/L [facility] Bilirubin [Mass/Vol] 0.4 mg/dL 0.2 - 1 .3 mg/dL [facility] Calcium [Mass/Vol] 9.8 mg/dL 8.5 - 10. 2 mg/dL [facility] Chloride [Moles/Vol] 102 mmol/L 97 - 10 5 mmol/L [facility] CO2 [Moles/Vol] 26 mmol/L 22 - 30 mmol/L [facility] Creatinine [Mass/Vol] 0.65 mg/dL 0.58 - 0.96 mg/dL [facility] Estimated Glomerular Filtration Rate 88 mL/min/1.73m >=60 mL/min/1.7 3m [facility] Glucose [Mass/Vol] 102 mg/dL High 74 - 99 mg/dL [facility] Potassium [Moles/Vol] 4.8 mmol/L 3.7 - 5.1 mmol/L [facility] Protein [Mass/Vol] 7.8 g/dL 6.3 - 8.0 g/dL [facility] Sodium [Moles/Vol] 140 mmol/L 136 - 144 mmol/L [facility] Urea nitrogen [Mass/Vol] 13 mg/dL 7 - 21 mg/dL [facility] LIPID PANEL, NONFASTINGon Cholesterol [Mass/Vol] 239 mg/dL High <200 mg/dL [facility] HDL Cholesterol, Nonfasting 52 mg/dL >39 mg/dL [facility] LDL Cholesterol, Nonfasting 140 mg/dL High <100 mg/dL [facility] LDL/HDL Ratio, Nonfasting 2.69 mg/dL High <2.54 mg/dL [facility] Non HDL Cholesterol, Nonfasting 187 mg/dL High <130 mg/dL [facility] Total Chol/HDL Ratio, Nonfasting 4.60 mg/dL <5.10 mg/dL [facility] Triglycerides, Nonfasting 233 mg/dL High <150 mg/dL [facility] VLDL Cholesterol, Nonfasting 47 mg/dL High <30 mg/dL [facility] TSH BLDon 12-12-2021 TSH Qn 2.980 m[IU]/L 0.270 - 4.200 mIU/L [facility] Vital Signs Date Time Vital Sign Value Performing Clinician Facility 12-04-2024 15:30-0400 Body height 152.[address] Carl Encarnacion MD Work Phone: [facility] 12-04-2024 15:30-0400 Body mass index (BMI) [Ratio] 34.2 kg/m2 Dr. Carl Encarnacion MD Work Phone: [facility] 12-04-2024 15:30-0400 Body weight 79.[address] Carl Encarnacion MD Work Phone: [facility] 02-14-2024 14:31-0400 Blood Pressure Cuff Size ANNELIESE Tiscali [facility] 02-14-2024 14:31-0400 Blood Pressure Location ANNELIESE Tiscali [facility] 02-14-2024 14:31-0400 Blood Pressure Method ANNELIESE Tiscali [facility] 02-14-2024 14:31-0400 Body temperature 98.24 [degF] ANNELIESE Tiscali [facility] 02-14-2024 14:31-0400 Diastolic Blood Pressure Non-Invasive 55 mm[Hg] ANNELIESE Tiscali [facility] 02-14-2024 14:31-0400 Heart rate 83 /min ANNELIESE Tiscali [facility] 02-14-2024 14:31-0400 Reason For Taking VItal Signs ANNELIESE SAHNIAppetise [facility] 02-14-2024 14:31-0400 Respiratory rate 20 /min ANNELIESE PLUNK DO [facility] 02-14-2024 14:31-0400 Systolic Blood Pressure Non-Invasive 120 mm[Hg] ANNELIESE PLUNK DO [facility] 02-14-2024 07:21-0400 Blood Pressure Cuff Size ANNELIESE PLUNK DO [facility] 02-14-2024 07:21-0400 Blood Pressure Location ANNELIESE [email or web address] DO [facility] 02-14-2024 07:21-0400 Blood Pressure Method ANNELIESE PLGRAYL [facility] 02-14-2024 07:21-0400 Body temperature 97.34 [degF] ANNELIESE PLGRAYL [facility] 02-14-2024 07:21-0400 Diastolic Blood Pressure Non-Invasive 42 mm[Hg] ANNELIESE PLUNK [email or web address] [facility] 02-14-2024 07:21-0400 Heart rate 64 /min ANNELIESE PLUNK [email or web address] [facility] 02-14-2024 07:21-0400 Reason For Taking VItal Signs ANNELIESE PLGRAYL [facility] 02-14-2024 07:21-0400 Respiratory rate 20 /min ANNELIESE PLUNK DO [facility] 02-14-2024 07:21-0400 Systolic Blood Pressure Non-Invasive 111 mm[Hg] ANNELIESE PLUNK DO [facility] 02-13-2024 21:27-0400 Body temperature 98.42 [degF] ANNELIESE PLUNK DO [facility] 02-13-2024 21:27-0400 Diastolic Blood Pressure Non-Invasive 47 mm[Hg] ANNELIESE PLUNK [email or web address] [facility] 02-13-2024 21:27-0400 Heart rate 74 /min ANNELIESE PLUNK DO [facility] 02-13-2024 21:27-0400 Reason For Taking VItal Signs ANNELIESE PLUNK DO [facility] 02-13-2024 21:27-0400 Respiratory rate 20 /min ANNELIESE PLUNK DO [address] [place] [address] 02-13-2024 21:27-0400 Systolic Blood Pressure Non-Invasive 120 mm[Hg] ANNELIESE PLUNK DO [address] [place] [address] 02-13-2024 14:50-0400 Blood Pressure Cuff Size ANNELIESE PLUNK [email or web address] [address] [place] [address] 02-13-2024 14:50-0400 Blood Pressure Location ANNELIESE [email or web address] DO [address] [place] [address] 02-13-2024 14:50-0400 Blood Pressure Method ANNELIESE PLGRAYL [address] [place] [address] 02-08-2024 22:20-0400 Heart rate 82 /min ANNELIESE PLUNK DO [address] [place] [address] 02-07-2024 22:08-0400 Heart rate 70 /min ANNELIESE PLUNK DO [address] [place] [address] 02-07-2024 14:57-0400 Heart rate 70 /min ANNELIESE PLUNK DO [address] [place] [address] 02-05-2024 07:36-0400 Heart rate 65 /min ANNELIESE PLUNK DO [address] [place] [address] 02-05-2024 02:51-0400 Body height 152.4 cm ANNELIESE [email or web address] DO [address] [place] [address] 02-05-2024 02:51-0400 Body weight 76.8 kg ANNELIESE PLUNK DO [address] [place] [address] 02-05-2024 02:51-0400 Body weight 33.07 kg/m2 ANNELIESE PLUNK DO [address] [place] [address] 02-05-2024 02:10-0400 Body height 152.4 cm ANNELIESE PLUNK DO [facility] 02-05-2024 [id number] Body weight 76.8 kg ANNELIESE PLUNK DO [facility] 02-05-2024 02:10-0400 Body weight 33.07 kg/m2 ANNELIESE PLUNK DO [facility] 02-05-2024 01:51-0400 Heart rate 66 /min ANNELIESE PLUNK DO [facility] 02-05-2024 01:51-0400 Mean blood pressure 79 mm[Hg] ANNELIESE SAHNIUNK DO [address] [place] [address] 02-04-2024 23:33-0400 Body temperature 98.42 [degF] STEFANOCOLTON BUTTELGIN MACHINE [employer] [facility] 02-04-2024 23:33-0400 Diastolic Blood Pressure Non-Invasive 54 mm[Hg] STEFANO FILOMENAELGIN MACHINE [employer] [facility] 02-04-2024 23:33-0400 Heart rate 63 /min STEFANOCOLTON BUTTELGIN MACHINE [employer] [facility] 02-04-2024 23:33-0400 Respiratory rate 16 /min STEFANO FILOMENAELGIN MACHINE [employer] [facility] 02-04-2024 23:33-0400 Systolic Blood Pressure Non-Invasive 121 mm[Hg] STEFANOCOLTON GRAHAM MACHINE [employer] [facility] 02-04-2024 20:11-0400 Body temperature 98.24 [degF] STEFANO FILOMENAELGIN MACHINE [employer] [facility] 02-04-2024 20:11-0400 Diastolic Blood Pressure Non-Invasive 67 mm[Hg] STEFANOCOLTON GRAHAM MACHINE [employer] [facility] 02-04-2024 20:11-0400 Heart rate 77 /min STEFANO GRAHAM MACHINE [employer] [facility] 02-04-2024 20:11-0400 Respiratory rate 16 /min STEFANO CHRISN MACHINE [employer] [facility] 02-04-2024 20:11-0400 Systolic Blood Pressure Non-Invasive 94 mm[Hg] STEFANO CHRISDayne MACHINE [employer] [facility] 02-04-2024 15:40-0400 Body temperature 98.06 [degF] STEFANOCOLTON CHRISN MACHINE [employer] [facility] 02-04-2024 15:40-0400 Diastolic Blood Pressure Non-Invasive 61 mm[Hg] STEFANO CHRISDayne MACHINE [employer] [facility] 02-04-2024 15:40-0400 Heart rate 88 /min STEFANO CHRISN MACHINE [employer] [facility] 02-04-2024 15:40-0400 Respiratory rate 16 /min STEFANO CHRISN MACHINE [employer] [facility] 02-04-2024 15:40-0400 Systolic Blood Pressure Non-Invasive 127 mm[Hg] STEFANO CHRISDayne MACHINE [employer] [facility] 02-04-2024 09:24-0400 Blood Pressure Cuff Size STEFANOCOLTON CHRISDayne MACHINE [employer] [facility] 02-04-2024 09:24-0400 Blood Pressure Location STEFANOCOLTON CHRISDayne MACHINE [employer] [facility] 02-04-2024 09:24-0400 Blood Pressure Method STEFANOCOLTON CHRISN MACHINE [employer] [facility] 02-04-2024 07:45-0400 Blood Pressure Cuff Size STEFANOCOLTON CHRISN MACHINE [employer] [facility] 02-04-2024 07:45-0400 Blood Pressure Location STEFANOCOLTON CHRISN MACHINE [employer] [facility] 02-04-2024 07:45-0400 Blood Pressure Method STEFANOCOLTON CHRISN MACHINE [employer] [facility] 02-03-2024 03:15-0400 Heart rate 66 /min STEFANOCOLTON CHRISN MACHINE [employer] [facility] 02-02-2024 23:09-0400 Heart rate 65 /min STEFANOCOLTON BUTTNEN MACHINE [employer] [facility] 02-02-2024 18:45-0400 Heart rate 82 /min STEFANO CHRISN MACHINE [employer] [facility] 02-01-2024 12:41-0400 Body height 152.4 cm STEFANOCOLTON BUTTNEN MACHINE [employer] [facility] 02-01-2024 12:41-0400 Body weight 76.2 kg STEFANO CHRISN MACHINE [employer] [facility] 02-01-2024 12:41-0400 Body weight 32.81 kg/m2 STEFANOCOLTON BUTTNEN MACHINE [employer] [facility] 02-01-2024 12:23-0400 Body height 152.4 cm STEFANOCOLTON BUTTNEN MACHINE [employer] [facility] 02-01-2024 12:23-0400 Body weight 76.2 kg STEFANOCOLTON CHRISN MACHINE [employer] [facility] 02-01-2024 12:23-0400 Body weight 32.81 kg/m2 STEFANO GRAHAM MACHINE [employer] [facility] 02-01-2024 07:01-0400 Body temperature 97.7 [degF] USMAN CHILDS MD FACP [facility] 02-01-2024 07:01-0400 Diastolic Blood Pressure Non-Invasive 60 mm[Hg] USMAN CHILDS MD FACP [facility] 02-01-2024 07:01-0400 Heart rate 82 /min USMAN CHILDS MD FACP [facility] 02-01-2024 07:01-0400 Respiratory rate 20 /min USMAN CHILDS MD FACP [facility] 02-01-2024 07:01-0400 Systolic Blood Pressure Non-Invasive 117 mm[Hg] USMAN CHILDS MD FACP [facility] 01-31-2024 20:07-0400 Body temperature 97.88 [degF] USMAN CHILDS MD FACP [facility] 01-31-2024 20:07-0400 Diastolic Blood Pressure Non-Invasive 61 mm[Hg] USMAN CHILDS MD FACP [facility] 01-31-2024 20:07-0400 Heart rate 85 /min USMAN CHILDS MD FACP [facility] 01-31-2024 20:07-0400 Respiratory rate 20 /min USMAN CHILDS MD FACP [facility] 01-31-2024 20:07-0400 Systolic Blood Pressure Non-Invasive 103 mm[Hg] USMAN CHILDS MD FACP [facility] 01-31-2024 11:05-0400 Heart rate 85 /min USMAN CHILDS MD FACP [facility] 01-31-2024 08:30-0400 Body temperature 98.6 [degF] USMAN CHILDS MD FACP [facility] 01-31-2024 07:29-0400 Diastolic Blood Pressure Non-Invasive 51 mm[Hg] USMAN CHILDS MD FACP [facility] 01-31-2024 07:29-0400 Respiratory rate 20 /min USMAN CHILDS MD FACP [facility] 01-31-2024 07:29-0400 Systolic Blood Pressure Non-Invasive 111 mm[Hg] USMAN CHILDS MD FACP [facility] 01-30-2024 07:54-0400 Heart rate 98 /min USMAN CHILDS MD FACP [facility] 01-29-2024 19:38-0400 Reason For Taking VItal Signs USMAN CHILDS MD FACP [facility] 01-29-2024 13:15-0400 Heart rate 94 /min USMAN CHILDS MD FACP [facility] 01-29-2024 09:19-0400 Heart rate 67 /min USMAN CHILDS MD FACP [facility] 01-28-2024 19:14-0400 Reason For Taking VItal Signs USMAN CHILDS MD FACP [facility] 01-27-2024 19:35-0400 Heart rate 78 /min USMAN CHILDS MD FACP [facility] 01-26-2024 20:05-0400 Heart rate 84 /min USMAN CHILDS MD FACP [facility] 01-25-2024 19:58-0400 Heart rate 78 /min USMAN CHILDS MD FACP [facility] 01-22-2024 17:48-0400 Body height 152.4 cm USMAN CHILDS MD FACP [facility] 01-22-2024 17:48-0400 Body weight 76.2 kg USMAN CHILDS MD FACP [facility] 01-22-2024 17:48-0400 Body weight 32.81 kg/m2 USMAN CHILDS MD FACP [facility] 12-13-2023 12:48-0400 Body mass index (BMI) [Ratio] 33.45 kg/m2 Ester Suppan MACHINE [employer] Work Phone: [facility] 12-13-2023 12:48-0400 Body weight 78.29 kg Ester Suppan MACHINE [employer] Work Phone: [facility] 12-13-2023 12:48-0400 Diastolic blood pressure 66 mm[Hg] Ester Suppan MACHINE [employer] Work Phone: [facility] 12-13-2023 12:48-0400 Heart rate 60 /min Ester Suppan MACHINE [employer] Work Phone: [facility] 12-13-2023 12:48-0400 Respiratory rate 20 /min Ester Suppan MACHINE [employer] Work Phone: [facility] 12-13-2023 12:48-0400 SaO2% (BldA) [Mass fraction] 98 % Ester Suppan MACHINE [employer] Work Phone: [facility] 12-13-2023 12:48-0400 Systolic blood pressure 100 mm[Hg] Ester Bejarano MACHINE [employer] Work Phone: [facility] 12-11-2023 07:56-0400 Diastolic Blood Pressure Non-Invasive 64 mm[Hg] USMAN CHILDS MD FACP [facility] 12-11-2023 07:56-0400 Systolic Blood Pressure Non-Invasive 120 mm[Hg] USMAN CHILDS MD FACP [facility] 12-11-2023 06:47-0400 Body temperature 97.88 [degF] USMAN CHILDS MD FACP [facility] 12-11-2023 06:47-0400 Diastolic Blood Pressure Non-Invasive 60 mm[Hg] USMAN CHILDS MD FACP [facility] 12-11-2023 06:47-0400 Heart rate 87 /min USMAN CHILDS MD FACP [facility] 12-11-2023 06:47-0400 Reason For Taking VItal Signs USMAN CHILDS MD FACP [facility] 12-11-2023 06:47-0400 Respiratory rate 18 /min USMAN CHILDS MD FACP [facility] 12-11-2023 06:47-0400 Systolic Blood Pressure Non-Invasive 117 mm[Hg] USMAN CHILDS MD FACP [facility] 12-10-2023 19:44-0400 Body temperature 97.7 [degF] USMAN CHILDS MD FACP [facility] 12-10-2023 19:44-0400 Diastolic Blood Pressure Non-Invasive 57 mm[Hg] USMAN CHILDS MD FACP [facility] 12-10-2023 19:44-0400 Heart rate 85 /min USMAN CHILDS MD FACP [facility] 12-10-2023 19:44-0400 Reason For Taking VItal Signs USMAN CHILDS MD FACP [facility] 12-10-2023 19:44-0400 Respiratory rate 18 /min USMAN CHILDS MD FACP [facility] 12-10-2023 19:44-0400 Systolic Blood Pressure Non-Invasive 110 mm[Hg] USMAN CHILDS MD FACP [facility] 12-10-2023 06:10-0400 Body temperature 97.7 [degF] USMAN CHILDS MD FACP [facility] 12-10-2023 06:10-0400 Heart rate 84 /min USMAN CHILDS MD FACP [facility] 12-10-2023 06:10-0400 Reason For Taking VItal Signs USMAN CHILDS MD FACP [facility] 12-10-2023 06:10-0400 Respiratory rate 18 /min USMAN CHILDS MD FACP [facility] 12-09-2023 20:06-0400 Heart rate 84 /min USMAN CHILDS MD FACP [facility] 12-07-2023 19:37-0400 Heart rate 78 /min USMAN CHILDS MD FACP [facility] 12-06-2023 19:42-0400 Heart rate 84 /min USMAN CHILDS MD FACP [facility] 12-06-2023 11:25-0400 Body weight 79.09 kg USMAN CHILDS MD FACP [facility] 12-06-2023 07:00-0400 Heart rate 83 /min USMAN CHILDS MD FACP [facility] 12-04-2023 20:19-0400 Heart rate 92 /min USMAN CHILDS MD FACP [facility] 11-30-2023 06:24-0400 Body weight 80.6 kg USMAN CHILDS MD FACP [address] [place] [address] 11-26-2023 21:19-0400 Body height 152.4 cm USMAN CHILDS MD FACP [address] [place] [address] 11-26-2023 21:19-0400 Body weight 80.6 kg USMAN CHILDS MD FACP [address] [place] [address] 11-26-2023 21:19-0400 Body weight 34.7 kg/m2 USMAN CHILDS MD FACP [facility] 11-26-2023 20:37-0400 Body temperature 98.8 [degF] Dr. Carl Encarnacion Work Phone: [facility] 11-26-2023 20:37-0400 Diastolic blood pressure 72 mm[Hg] Dr. Carl Encarnacion Work Phone: [facility] 11-26-2023 20:37-0400 Heart rate 115 /min Dr. Carl Encarnacion Work Phone: [facility] 11-26-2023 20:37-0400 Respiratory rate 18 /min Dr. Carl Encarnacion Work Phone: [facility] 11-26-2023 20:37-0400 SaO2% (BldA) [Mass fraction] 97 % Dr. Carl Encarnacion Work Phone: [facility] 11-26-2023 20:37-0400 Systolic blood pressure 139 mm[Hg] Dr. Carl Encarnacion Work Phone: [facility] 11-23-2023 12:51-0400 Body height 152.[address] Carl Encarnacion Work Phone: [facility] 11-23-2023 12:51-0400 Body mass index (BMI) [Ratio] 34.3 kg/m2 Dr. Carl Encarnacion Work Phone: [facility] 11-23-2023 12:51-0400 Body weight 79.[address] Carl Encarnacion Work Phone: [facility] 11-23-2023 11:58-0400 Diastolic blood pressure 102 mm[Hg] [facility] 11-23-2023 11:58-0400 Heart rate 96 /min [facility] 11-23-2023 11:58-0400 Respiratory rate 20 /min [facility] 11-23-2023 11:58-0400 SaO2% (BldA) [Mass fraction] 95 % [facility] 11-23-2023 11:58-0400 Systolic blood pressure 120 mm[Hg] [facility] 11-23-2023 11:49-0400 Body temperature 98 [degF] [facility] 11-23-2023 08:07-0400 Body height 152.4 cm [facility] 11-23-2023 08:07-0400 Body mass index (BMI) [Ratio] 36.3 kg/m2 [facility] 11-23-2023 08:07-0400 Body weight 84.3 kg [facility] 07-26-2023 11:33-0500 Body temperature 98.1 [degF] Prosper Amador Work Phone: [facility] 07-26-2023 11:33-0500 Body weight 73.94 kg Prosper Amador Work Phone: [facility] 07-26-2023 11:33-0500 Diastolic blood pressure 69 mm[Hg] Prosper Amador Work Phone: [facility] 07-26-2023 11:33-0500 Heart rate 106 /min Prosper Amador Work Phone: [facility] 07-26-2023 11:33-0500 SaO2% (BldA) [Mass fraction] 98 % Prosper Solanoight Work Phone: [facility] 07-26-2023 11:33-0500 Systolic blood pressure 142 mm[Hg] Prosper Amador Work Phone: [facility] 07-07-2023 08:34-0500 Body height 153 cm Wilmar Masci DO Work Phone: [facility] 07-07-2023 08:34-0500 Body temperature 98.8 [degF] Wilmar Masci DO Work Phone: [facility] 07-07-2023 08:34-0500 Body weight 75.3 kg Wilmar Masci DO Work Phone: [facility] 07-07-2023 08:34-0500 Diastolic blood pressure 84 mm[Hg] Wilmar Masci DO Work Phone: [facility] 07-07-2023 08:34-0500 Heart rate 92 /min Wilmar Masci DO Work Phone: [facility] 07-07-2023 08:34-0500 SaO2% (BldA) [Mass fraction] 98 % Wilmar Masci DO Work Phone: [facility] 07-07-2023 08:34-0500 Systolic blood pressure 150 mm[Hg] Wilmar Masci DO Work Phone: [facility] 06-02-2023 13:59-0400 Body temperature 97.9 [degF] Wilmar Masci DO Work Phone: [facility] 06-02-2023 13:59-0400 Body weight 73.48 kg Wilmar Masci DO Work Phone: [facility] 06-02-2023 13:59-0400 Diastolic blood pressure 71 mm[Hg] Wilmar Masci DO Work Phone: [facility] 06-02-2023 13:59-0400 Heart rate 96 /min Wilmar Forbes DO Work Phone: [facility] 06-02-2023 13:59-0400 SaO2% (BldA) [Mass fraction] 97 % Wilmar Forbes DO Work Phone: [facility] 06-02-2023 13:59-0400 Systolic blood pressure 121 mm[Hg] Wilmar Forbes DO Work Phone: [facility] 05-03-2023 15:18-0400 Body temperature 97.5 [degF] Eliot Castillo MD Work Phone: [facility] 05-03-2023 15:18-0400 Body weight 72.94 kg Eliot Castillo MD Work Phone: [facility] 05-03-2023 15:18-0400 Diastolic blood pressure 66 mm[Hg] Eliot Castillo MD Work Phone: [facility] 05-03-2023 15:18-0400 Heart rate 93 /min Eliot Castillo MD Work Phone: [facility] 05-03-2023 15:18-0400 Systolic blood pressure 144 mm[Hg] Eliot Castillo MD Work Phone: [facility] 04-06-2023 14:45-0400 Body height 156 cm [facility] 04-06-2023 14:45-0400 Body weight 72.58 kg [facility] 01-27-2023 10:22-0400 Body temperature 98.29 [degF] Kristen SANTOS-C Work Phone: [facility] 01-27-2023 10:22-0400 Diastolic blood pressure 70 mm[Hg] Kristen SANTOS-C Work Phone: [facility] 01-27-2023 10:22-0400 Heart rate 110 /min Kristen SANTOS-C Work Phone: [facility] 01-27-2023 10:22-0400 Respiratory rate 16 /min Kristen SANTOS-C Work Phone: [facility] 01-27-2023 10:22-0400 Systolic blood pressure 110 mm[Hg] Kristen Eugene PA-C Work Phone: [facility] 01-12-2023 10:22-0400 Body height 160.02 cm [facility] 01-12-2023 10:22-0400 Body mass index (BMI) [Ratio] 31.1 kg/m2 [facility] 01-12-2023 10:22-0400 Body temperature 97.6 [degF] [facility] 01-12-2023 10:22-0400 Body weight 79.78 kg [facility] 01-12-2023 10:22-0400 Diastolic blood pressure 83 mm[Hg] [facility] 01-12-2023 10:22-0400 Heart rate 92 /min [facility] 01-12-2023 10:22-0400 Respiratory rate 16 /min [facility] 01-12-2023 10:22-0400 SaO2% (BldA) [Mass fraction] 100 % [facility] 01-12-2023 10:22-0400 Systolic blood pressure 146 mm[Hg] [facility] 07-19-2022 11:20-0500 Body temperature 98.01 [degF] Isabel Older MACHINE PULLER AND LASTER.FOOD PREPARER Work Phone: [facility] 07-19-2022 11:20-0500 Body weight 75.75 kg Isabel Older MACHINE PULLER AND LASTER.FOOD PREPARER Work Phone: [facility] 07-19-2022 11:20-0500 Diastolic blood pressure 82 mm[Hg] Isabel Older MACHINE PULLER AND LASTER.FOOD PREPARER Work Phone: [facility] 07-19-2022 11:20-0500 Heart rate 118 /min Isabel Older MACHINE PULLER AND LASTER.FOOD PREPARER Work Phone: [facility] 07-19-2022 11:20-0500 Respiratory rate 20 /min Isabel Older MACHINE PULLER AND LASTER.FOOD PREPARER Work Phone: [facility] 07-19-2022 11:20-0500 SaO2% (BldA) [Mass fraction] 95 % Isabel Older MACHINE PULLER AND LASTER.FOOD PREPARER Work Phone: [facility] 07-19-2022 11:20-0500 Systolic blood pressure 140 mm[Hg] Isabel Older MACHINE PULLER AND LASTER.FOOD PREPARER Work Phone: [facility] 06-26-2022 11:08-0500 Diastolic blood pressure 72 mm[Hg] Carl Encarnacion MD Work Phone: [facility] 06-26-2022 11:08-0500 Systolic blood pressure 130 mm[Hg] Carl Encarnacion MD Work Phone: [facility] 06-26-2022 10:45-0500 Body weight 76.66 kg Carl Encarnacion MD Work Phone: [facility] 06-26-2022 10:45-0500 Heart rate 90 /min Carl Encarnacion MD Work Phone: [facility] 06-26-2022 10:45-0500 Respiratory rate 20 /min Carl Encarnacion MD Work Phone: [facility] 12-12-2021 12:20-0400 Diastolic blood pressure 94 mm[Hg] Carl Encarnacion MD Work Phone: [facility] 12-12-2021 12:20-0400 Systolic blood pressure 182 mm[Hg] Carl Encarnacion MD Work Phone: [facility] 12-12-2021 11:56-0400 Body weight 75.3 kg Carl Encarnacion MD Work Phone: [facility] 12-12-2021 11:56-0400 Heart rate 82 /min Carl Encarnacion MD Work Phone: [facility] 12-12-2021 11:56-0400 Respiratory rate 16 /min Carl Encarnacion MD Work Phone: [facility] Encounters Encounter Date Encounter Type Care Provider Facility Start: 03-20-2025 End: 03-20-[address] Carl Encarnacion MD Work Phone: [facility] Start: 03-20-2025 End: 03-20-[address] Lasha Pro MD -[facility] Work Phone: Start: 03-05-2025 ambulatory Tenzinlesley Por OLS Fa cility:[facility] Start: 03-05-2025 Registered Referred Lasha Pro MD [facility] Start: 03-01-2025 End: 03-01-[address] Carl Encarnacion MD Work Phone: [facility] Start: 03-01-2025 End: 03-01-2025 Patient encounter procedure Jim SANTOS -[facility] Work Phone: Start: 02-19-2025 ambulatory Efannmarie Graye OLS Fa cility:[facility] Start: 02-19-2025 Registered Referred Lasha Pro MD [facility] Start: 02-12-2025 ambulatory Efcachorrolesley Singletaryhelene OLS Fa cility:[facility] Start: 02-12-2025 Registered Referred Lasha Pro MD [facility] Start: 01-22-2025 ambulatory Efannmarie Graye OLS Fa cility:[facility] Start: 01-22-2025 Registered Referred Lasha Pro MD [facility] Start: 01-18-2025 ambulatory Efcachorrolesley Pro OLS Fa cility:[facility] Start: 01-18-2025 [facility] Start: 01-09-2025 End: 01-09-[address] Carl Encarnacion MD Work Phone: [facility] Start: 01-09-2025 End: 01-09-[address] Lasha Pro MD -[facility] Work Phone: Start: 12-11-2024 End: 12-11-[address] Carl Encarnacion MD Work Phone: [facility] Start: 12-11-2024 End: 12-11-2024 Patient encounter procedure Savi Tavares BULL WHEEL WORKER-C -[facility] Work Phone: Start: 12-11-2024 End: 12-11-2024 [facility] Start: 12-11-2024 End: 12-11-2024 ambulatory Lasha Pro OLS Facility:[facility] Start: 12-05-2024 End: 12-05-2024 ambulatory Savikalyani Tavares Facility:[facility] Start: 12-05-2024 End: 12-05-2024 Patient encounter procedure Savi Tavares BULL WHEEL WORKER-C -[facility] Work Phone: Start: 12-05-2024 End: 12-05-2024 [facility] Start: 12-04-2024 End: 12-04-[address] Ronen Espinoza DO [facility] Work Phone: Start: 12-04-2024 End: 12-05-2024 ambulatory Lasha Pro OLS Facility:[facility] Start: 11-22-2024 End: 11-22-2024 ambulatory Savi Tavares Facility:[facility] Start: 11-22-2024 End: 11-22-2024 Patient encounter procedure Savi Tavares BULL WHEEL WORKER-C -[facility] Work Phone: Start: 11-17-2024 End: 11-17-2024 ambulatory Savi Tavares Facility:[facility] Start: 11-17-2024 End: 11-17-2024 Patient encounter procedure Savi Tavares BULL WHEEL WORKER-C -[facility] Work Phone: Start: 11-07-2024 End: 11-07-2024 ambulatory annmarie Pro Facility:[facility] Start: 11-07-2024 End: 11-07-[address] Lasha Pro MD [facility] Work Phone: Start: 11-02-2024 End: 11-02-[address] Carl Encarnacion MD Work Phone: [facility] Work Phone: Start: 11-02-2024 End: 11-02-2024 [facility] Start: 11-02-2024 [facility] Start: 11-02-2024 End: 11-02-2024 ambulatory Carl Encarnacion Facility:[facility] Start: 10-30-2024 End: 10-30-[address] Carl Encarnacion MD Work Phone: [facility] Work Phone: Start: 10-30-2024 End: 10-30-2024 Departed Referred Lasha Pro MD [facility] Start: 10-30-2024 [facility] Start: 10-30-2024 End: 10-30-2024 ambulatory Lasha VASQUEZ Facility:[facility] Start: 10-19-2024 End: 10-19-2024 ambulatory Jim SANTOS Facility:[facility] Start: 10-19-2024 End: 10-19-2024 Patient encounter procedure Jim SANTOS -[facility] Work Phone: Start: 10-16-2024 End: 10-16-[address] Calr Encarnacion MD Work Phone: [facility] Work Phone: Start: 10-16-2024 End: 10-16-2024 Departed Referred Lasha Pro MD [facility] Start: 10-16-2024 End: 10-16-2024 ambulatory Lasha VASQUEZ Facility:[facility] Start: 09-27-2024 Registered Referred Lasha Pro MD [facility] Start: 09-27-2024 End: 09-27-2024 ambulatory Savi Tavares Facility:[facility] Start: 09-27-2024 End: 09-27-2024 Patient encounter procedure [facility] Work Phone: Start: 09-25-2024 ambulatory Lasha VASQUEZ Fa cility:[facility] Start: 09-25-2024 [facility] Start: 09-18-2024 ambulatory Carl Alejandra Facility :[facility] Start: 09-18-2024 [facility] Start: 09-14-2024 ambulatory Carl Alejandra Facility :[facility] Start: 09-14-2024 [facility] Start: 09-12-2024 End: 09-12-2024 ambulatory Carl Alejandra Facility:[facility] Start: 09-12-2024 End: 09-12-[address] [facility] Start: 09-03-2024 ambulatory Carl Alejandra Facility :[facility] Start: 09-03-2024 [facility] Start: 08-15-[address] ZACKARY WALLER MD Facility:[facility] Start: 08-11-2024 End: 08-11-2024 ambulatory Carl Alejandra Facility:[facility] Start: 08-11-2024 End: 08-11-2024 [facility] Start: 08-07-2024 ambulatory Carl Alejandra Facility :[facility] Start: 08-07-2024 [facility] Start: 07-11-2024 End: 07-11-2024 ambulatory Carl Alejandra Facility:[facility] Start: 06-22-2024 End: 06-22-2024 ambulatory Carl Alejandra Facility:[facility] Start: 06-19-2024 ambulatory Carl Alejandra Facility :[facility] Start: 05-22-2024 End: 05-22-2024 ambulatory Lasha VASQUEZ Facility:[facility] Start: 05-16-2024 End: 05-16-2024 ambulatory Carl Encarnacion Facility:[facility] Start: 05-15-2024 ambulatory Efcachorroongbe Marinae OLS Fa cility:[facility] Start: 05-08-2024 ambulatory Efewongbe Olehelene OLS Fa cility:[facility] Start: 05-01-2024 End: 05-01-2024 ambulatory Efannmarie Graye OLS Facility:[facility] Start: 04-24-2024 ambulatory Efewongphilip Graye OLS Fa cility:[facility] Start: 04-18-2024 End: 04-18-2024 ambulatory Savi Tavares Facility:[facility] Start: 04-17-2024 ambulatory Efcachorroongbe Marinae OLS Fa cility:[facility] Start: 04-11-2024 ambulatory Efewongbe Olehelene OLS Fa cility:[facility] Start: 02-15-2024 Refill Carl cassidy MD Work Phone: [facility] Comment on above: Refill Request Start: 02-05-2024 End: 02-14-2024 Evaluation and management of inpatient ANNELIESE CHAIREZ DO [facility] Start: 02-01-2024 End: 02-05-2024 Evaluation and management of inpatient SETFANOCOLTON BUTTELGIN MACHINE PULLER AND LASTER-FOOD PREPARER [facility] Start: 01-25-2024 ambulatory Carl cassidy MD Work Phone: [facility] Start: 01-22-2024 End: 02-01-2024 Evaluation and management of inpatient USMAN CHILDS MD [facility] Start: 01-20-2024 Chart abstracting Carl barragan MD Work Phone: [facility] Comment on above: Outside Heart Cath Start: 01-13-2024 End: 01-13-2024 ambulatory CARL ENCARNACION Facility:[facility] Start: 01-11-2024 Telephone encounter Carl Encarnacion MD Work Phone: [facility] Comment on above: Patient Update Start: 01-07-2024 Telephone encounter Ester Bejarano APRN.OFFAL ROLLER Work Phone: [facility] Comment on above: Medication Problem Start: 01-06-2024 Telephone encounter Ester Bejraano MACHINE PULLER AND LASTER.OFFAL ROLLER Work Phone: [facility] Comment on above: Results OT Update Start: 01-04-2024 Refill Carl cassidy MD Work Phone: [facility] Comment on above: Refill Request Start: 12-25-2023 Home visit Carl cassidy MD Work Phone: [facility] Comment on above: Essential hypertensi on, malignant (Primary Dx) Start: 12-21-2023 Chart abstracting Carl barragan MD Work Phone: [facility] Comment on above: Ext / Discharge Summ edwina Start: 12-16-2023 Telephone encounter Ester Bejarano APRN.OFFAL ROLLER Work Phone: [facility] Start: 12-15-2023 Telephone encounter Carl Encarnacion MD Work Phone: [facility] Start: 12-14-2023 Telephone encounter Calr Encarnacion MD Work Phone: [facility] Comment on above: Patient Update from [facility] Start: 12-14-2023 End: 12-14-2023 ambulatory CARL ENCARNACION Facility:[facility] Start: 12-13-2023 Telephone encounter Carl Encarnacion MD Work Phone: [facility] Comment on above: [facility]-ve rbal ordes requeted Start: 12-13-2023 End: 12-13-2023 Office outpatient visit 15 minutes Ester Bejarano APRN.OFFAL ROLLER Work Phone: [facility] Comment on above: Recurrent UTI (urina ry tract infection) (Primary Dx); Essential hypertension; Malignant neoplasm of ovary, unspecified laterality (HCC); Aortic stenosis, moderate Start: 12-13-2023 End: 01-11-2024 ambulatory CARL ENCARNACION Facility:[facility] Start: 12-06-2023 Refill Carl cassidy MD Work Phone: [facility] Comment on above: Refill Request Start: 11-26-2023 End: 12-11-2023 Evaluation and management of inpatient USMAN CHILDS MD [facility] Start: 11-26-2023 Non-patient / Non-visit Dr. Deandre Encarnacion Work Phone: [facility] Work Phone: Start: 11-25-2023 Non-patient / Non-visit Dr. Deandre Encarnacion Work Phone: [facility] Work Phone: Start: 11-24-2023 Chart abstracting Keily Rico [facility] Comment on above: Hospital Admission Start: 11-24-2023 Non-patient / Non-visit Dr. Deandre Encarnacion Work Phone: [facility] Work Phone: Start: 11-23-2023 End: 11-26-2023 [facility] Work Phone: Start: 10-07-2023 Refill Carl cassidy MD Work Phone: [facility] Comment on above: Refill Request Start: 09-16-[address] ZACKARY WALLER MD Facility:[facility] Start: 09-09-2023 End: 09-09-[address] ZACKARY WALLER MD Facility:[facility] Start: 09-09-2023 End: 09-09-[address] ZACKARY WALELR MD [place] [facility] Start: 08-18-2023 End: 08-18-2023 ambulatory CARL ENCARNACION Facility:[facility] Start: 07-26-2023 End: 07-26-2023 Patient encounter procedure Prosper Amador Work Phone: [facility] Start: 07-26-2023 End: 07-26-2023 ambulatory Prosper Marjorie Work Phone: Hematology/Oncology Comment on above: 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) Start: 07-16-2023 Telephone encounter Wilmar perales DO Work Phone: Hematology/Oncology Start: 07-14-2023 End: 07-14-2023 ambulatory CARL ENCARNACION Facility:[facility] Start: 07-13-2023 Orders Only Wilmar Holden O Work Phone: Hematology/Oncology Comment on above: 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) Start: 07-12-2023 Telephone encounter Carl Encarnacion MD Work Phone: [facility] Comment on above: Medication Problem Start: 07-07-2023 End: 07-07-2023 Patient encounter procedure Wilmar Forbes DO Work Phone: [facility] Start: 07-07-2023 End: 07-07-2023 ambulatory Wilmar Forbes DO Work Phone: Hematology/Oncology Comment on above: 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) Start: 06-17-2023 Telephone encounter Korin Mantilla RN He matology/Oncology Comment on above: Boiling Off Winder - O ther (Toxicity Check (Carboplatin)) Start: 06-11-2023 Telephone encounter Korin Eduardo matology/Oncology Comment on above: Boiling Off Winder - O ther (C1D1 Post Treatment Call (Carboplatin) ) Medication Problem Start: 06-10-2023 End: 06-10-2023 ambulatory CARL ENCARNACION Facility:[facility] Start: 06-07-2023 Refill Carl cassidy MD Work Phone: [facility] Comment on above: Refill Request Boiling Off Winder - O ther (Orders ) Start: 06-04-2023 End: 06-04-2023 accounts receivable clerk [facility] Work Phone: Hematology/Oncology Comment on above: Encounter for educat ion (Primary Dx) Start: 06-02-2023 End: 06-02-2023 ambulatory Wilmar Hernandez Masci DO Work Phone: Hematology/Oncology Comment on above: Ovarian cancer on ri ght (HCC) (Primary Dx) Start: 06-02-2023 End: 06-02-2023 Patient encounter procedure Wilmar Forbes DO [facility] Start: 06-02-2023 Telephone encounter Korin Mantilla RN He matology/Oncology Comment on above: Boiling Off Winder - O ther (Introduction ) AVS 06/02/23, CHEMO START Start: 05-31-2023 Home visit Carl cassidy MD Work Phone: [facility] Comment on above: 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 (Primary Dx) Start: 05-17-2023 End: 05-17-2023 ambulatory CARL ENCARNACION Facility:[facility] Start: 05-13-2023 Telephone encounter Carl Encarnaicon MD Work Phone: [facility] Comment on above: Nursing Plan of Care Start: 05-03-2023 End: 05-03-2023 ambulatory Eliot Castillo MD Work Phone: Gynecology Comment on above: Ovarian cancer on ri ght (HCC) (Primary Dx); Post-operative state Start: 05-03-2023 End: 05-03-2023 Patient encounter procedure Eliot Castillo MD Work Phone: [facility] Start: 05-03-2023 End: 05-03-2023 ambulatory CARL ENCARNACION Facility:[facility] Start: 05-01-2023 Refill Annmarie fair APRN.CNP Work Phone: [facility] Comment on above: Refill Request Start: 04-09-2023 Telephone encounter Annmarie garcia APRN.CNP Work Phone: [facility] Comment on above: home health calling Start: 04-07-2023 Encounter for other preprocedural examination ELIOT CASTILLO [facility] Start: 04-07-2023 End: 04-14-2023 Evaluation and management of inpatient ELIOT CASTILLO Facility:[facility] Start: 04-06-2023 End: 04-06-2023 Admission to establishment [facility] Start: 04-06-2023 Encounter for other preprocedural examination ELIOT CASTILLO [facility] Start: 04-06-2023 End: 04-06-2023 ambulatory Ousmane Jones APRN.CNP, DNP Work Phone: Pre Anesthesia Comment on above: preop instructions Pre-op evaluation (P rimary Dx); Acquired hypothyroidism; Essential hypertension; Gastroesophageal reflux disease without esophagitis; History of pulmonary embolism; Aortic stenosis, moderate Start: 04-06-2023 E-mail encounter fro m caregiver Ousmane Jones APRN.CNP, DNP Work Phone: [facility] Start: 04-06-2023 End: 04-06-2023 Preprocedural examination done Ousmane Jones APRN.CNP, DNP Work Phone: [facility] Work Phone: Start: 04-06-2023 Telephone encounter Ousmane stone APRN.CNP, DNP Work Phone: Pre Anesthesia Start: 03-24-2023 Telephone encounter Dari moreno MD Work Phone: [facility] Comment on above: Appointment Patient Update Start: 03-23-2023 End: 03-23-2023 ambulatory CARL ENCARNACION Facility:[facility] Start: 03-22-2023 End: 03-22-2023 Preprocedural examination done Annmarie Mendoza APRN.CNP Work Phone: [facility] Work Phone: Start: 03-22-2023 Telephone encounter Tuyet Lorenz RN Gy necology Comment on above: Pre op instructions Results Start: 03-22-2023 End: 03-22-2023 Subsequent hospital visit by physician Xr [facility] Comment on above: Ovarian mass [N83.8] Start: 03-16-2023 Telephone encounter Ely oshea MD Work Phone: OB/Gynecology Comment on above: Referral Information Start: 03-09-2023 End: 03-09-2023 ambulatory CARL ENCARNACION Facility:[facility] Start: 03-09-2023 End: 03-09-2023 ambulatory CARL ENCARNACION Facility:[facility] Start: 03-09-2023 End: 03-09-2023 Subsequent hospital visit by physician Ct [facility] (I-Stat) Work Phone: Cat Scan Comment on above: Pelvic mass [R19.00] Start: 03-02-2023 End: 03-02-2023 ambulatory [facility] Work Phone: Start: 03-02-2023 End: 03-02-2023 Patient encounter procedure [facility]-Laboratory, Specimen Work Phone: Start: 02-08-2023 Refill Carl cassidy MD Work Phone: [facility] Comment on above: Refill Request Start: 02-02-2023 End: 02-02-2023 ambulatory America Camejo PT [facility] Comment on above: Sciatica, right side (Primary Dx); Falls, subsequent encounter Start: 02-02-2023 Telephone encounter Kristen brewer PA-C Work Phone: [facility] Comment on above: Results Start: 01-27-2023 End: 01-27-2023 Subsequent hospital visit by physician Xr [facility] Work Phone: Radiology Comment on above: Sciatica, right side [M54.31] Start: 01-27-2023 End: 01-27-2023 ambulatory CARL ENCARNACION Facility:[facility] Start: 01-27-2023 End: 01-27-2023 Patient encounter procedure Kristen Eugene PA-C Work Phone: [facility] Comment on above: Sciatica, right side (Primary Dx); Fall, subsequent encounter Start: 01-25-2023 Telephone encounter Kristen brewer PA-C Work Phone: [facility] Comment on above: Results Start: 01-21-2023 Telephone encounter Carl Encarnacion MD Work Phone: [facility] Comment on above: Results Start: 01-12-2023 End: 01-12-2023 Emergency department patient visit [facility]gency Department Start: 01-12-2023 End: 01-12-2023 Patient encounter procedure Barrera Daley APRN.FOOD PREPARER Work Phone: [facility] Comment on above: Severe back pain (Pr imary Dx); Fall, initial encounter Start: 11-06-2022 Refill Carl cassidy MD Work Phone: [facility] Comment on above: Refill Request Start: 09-10-2022 Refill Carl cassidy MD Work Phone: [facility] Comment on above: Refill Request Start: 07-20-2022 Telephone encounter Barrera greene APRN.FOOD PREPARER Work Phone: [facility] Comment on above: Results Start: 07-20-2022 End: 07-20-2022 Subsequent hospital visit by physician Manju [facility] Work Phone: Radiology Comment on above: Acute cough [R05.1] Start: 07-19-2022 End: 07-19-2022 Patient encounter procedure Isabel Roca APRN.FOOD PREPARER Work Phone: [facility] Comment on above: Acute cough (Primary Dx); Wheezing Start: 06-29-2022 Telephone encounter Carl Encarnacion MD Work Phone: [facility] Comment on above: Results Start: 06-26-2022 End: 06-26-2022 Patient encounter procedure Carl Encarnacion MD Work Phone: [facility] Comment on above: Essential hypertensi on (Primary Dx); Mixed hyperlipidemia; Gastroesophageal reflux disease without esophagitis; Acquired hypothyroidism; Aortic stenosis, moderate; Osteoarthritis of multiple joints, unspecified osteoarthritis type; Encounter for immunization; Advance directive discussed with patient Start: 06-10-2022 Refill Carl cassidy MD Work Phone: [address] [place] [address] Comment on above: Refill Request Start: 06-05-2022 Refill Carl cassidy MD Work Phone: [facility] Comment on above: Refill Request Start: 05-25-2022 Telephone encounter Carl Encarnacion MD Work Phone: [facility] Comment on above: patient refused test ing Start: 05-13-2022 Telephone encounter Carl Encarnacion MD Work Phone: [facility] [place] Comment on above: Orders Start: 05-01-2022 Telephone encounter Carl Encarnacion MD Work Phone: [facility] [place] Comment on above: returning oxygen (Re turning oxygen to [employer]) Start: 03-16-2022 Telephone encounter Carl Encarnacion MD Work Phone: [facility] [place] Comment on above: Patient Question Start: 03-13-2022 Refill Carl cassidy MD Work Phone: [facility] [place] Comment on above: Prescription Refills Start: 12-15-2021 Telephone encounter Carl Encarnacion MD Work Phone: [facility] [place] Comment on above: Results Start: 12-12-2021 End: 12-12-2021 Patient encounter procedure Carl Encarnacion MD Work Phone: [facility] [place] Comment on above: Essential hypertensi on (Primary Dx); Mixed hyperlipidemia; Acquired hypothyroidism; History of pulmonary embolism; Gastroesophageal reflux disease without esophagitis; Osteoarthritis of multiple joints, unspecified osteoarthritis type; Medication management Start: 11-28-2021 Refill Carl cassidy MD Work Phone: [facility] [place] Comment on above: Refill Request Start: 11-17-2021 Telephone encounter Carl Encarnacion MD Work Phone: [facility] Comment on above: urine culture Start: 11-12-2021 Telephone encounter Carl Encarnacion MD Work Phone: [facility] [place] Comment on above: Results Start: 08-07-2021 Patient encounter procedure Carl Encarnacion MD Work Phone: [facility] Work Phone: Start: 06-19-2021 Patient encounter status [facility] Start: 02-05-2021 Patient encounter status Tenisha Encarnacion MD Work Phone: [facility] Work Phone: Procedures Date Procedure Procedure Detail Performing Clinician Start: 02-12-2025 Urnls dip stick/tabl et reagent auto microscopy Dr. Carl Encarnacion MD Work Phone: Start: 02-12-[address] Tenisha Encarnacion MD Work Phone: Start: 12-05-[address] Tenisha Encarnacion MD Work Phone: Start: 12-05-2024 Urnls dip stick/tabl et reagent auto microscopy Dr. Carl Encarnacion MD Work Phone: Start: 12-04-2024 Plain x-ray of pelvi s and lower extremity Dr. Carl Encarnacion MD Work Phone: Start: 09-27-[address] Tenisha Encarnacion MD Work Phone: Start: 09-25-[address] Tenisha Encarnacion MD Work Phone: Start: 09-14-[address] Tenisha Encarnacion MD Work Phone: Start: 09-03-[address] Tenisha Encarnacion MD Work Phone: Start: 01-21-2024 Cardiac catheterization USMAN CHILDS MD FACP Start: 11-23-[address] Tenisha Encarnacion Work Phone: Start: 11-23-2023 Plain chest X-ray Start: 02-01-2024 Echocardiography USMAN CHILDS MD FACP Comment on above: Summary: 1. Left ventricle: [...] ast 12 lds i&r only Annmarie Mendoza [employer] Work Phone: Start: 03-09-2023 Ct abdomen & pelvis w/contrast material Carl Encarnacion MD Work Phone: Start: 01-27-2023 Radex spine lumbosac ral 2/3 views Kristen Eugene PA-C Work Phone: Start: 01-12-2023 X-ray of lumbar spin e, two or three views Start: 07-20-2022 Radiologic exam ches t 2 views Isabel Jansen [employer].[facility] Work Phone: Start: 06-26-2022 INFLUENZA SEASONAL QUADRIVALENT HIGH DOSE AGE 65+ Carl Encarnacion MD Work Phone: Start: 06-26-2022 Gradible (formerly gradsavers)-Orphazyme COVI D-19 BIVALENT BOOSTER VACCINE, AGE 12+ YR Carl Encarnacion MD Work Phone: Extraction of cataract DR KOBY WALLER MD Plan of Treatment Date Care Activity Detail Author Start: 08-18-2026 Diabetes Screening Diabetes Screenin g [facility] Start: 07-26-2026 Diabetes Screening Diabetes Screenin g [facility] Start: 07-14-2026 Diabetes Screening Diabetes Screenin yolande [facility] Start: 07-07-2026 Diabetes Screening Diabetes Screenin g [facility] Start: 06-10-2026 Diabetes Screening Diabetes Screenin g [facility] Start: 06-02-2026 Diabetes Screening Diabetes Screenin g [facility] Start: 04-14-2026 Diabetes Screening Diabetes Screenin g [facility] Start: 04-12-2026 DIABETES SCREEN DIABETES SCREEN [facility] Start: 03-22-2026 DIABETES SCREEN DIABETES SCREEN [facility] Start: 01-15-2026 DIABETES SCREEN DIABETES SCREEN [facility] Start: 12-12-2024 DIABETES SCREEN DIABETES SCREEN [facility] Start: 08-12-2024 DIABETES SCREEN DIABETES SCREEN [facility] Start: 04-09-2024 Covid-19 Vaccine ( season) Covid-19 Vaccine () [facility] Start: 04-09-2024 Covid-19 Vaccine ( season) Covid-19 Vaccine () [facility] Start: 04-09-2024 Influenza vaccination Influenza Vacc ine (#1) [facility] Start: 02-17-2024 End: 02-17-2024 Patient encounter procedure 02/17/2024 10:20 AM EDT Office Visit [facility] [place] [address] [place], [place] [id number] Kristen Eugene PA-C [address] [place], [place] [id number] Medicare wellness [facility] Comment on above: Medicare wellness Start: 01-13-2024 End: 04-13-2024 Bacteria identified in Urine by Culture URINE CULTURE Microbiology Routine Recurrent UTI (urinary tract infection) Expected: 01/13/2024, Expires: 04/13/2024 [facility] Work Phone: Comment on above: Expected: 01/13/2024 , Expires: 04/13/2024 Start: 12-23-2023 End: 03-23-2024 Bacteria identified in Urine by Culture URINE CULTURE Microbiology Routine Recurrent UTI (urinary tract infection) Expected: 12/23/2023, Expires: 03/23/2024 [facility] Work Phone: Comment on above: Expected: 12/23/2023 , Expires: 03/23/2024 Start: 12-13-2023 End: 03-13-2024 Bacteria identified in Urine by Culture URINE CULTURE Microbiology Routine Recurrent UTI (urinary tract infection) Expected: 12/13/2023, Expires: 03/13/2024 [facility] Work Phone: Comment on above: Expected: 12/13/2023 , Expires: 03/13/2024 Start: 12-13-2023 End: 03-13-2024 URINALYSIS, REFLEX MICROSCOPIC URINALYSIS, REFLEX MICROSCOPIC Lab Routine Recurrent UTI (urinary tract infection) Expected: 12/13/2023, Expires: 03/13/2024 [facility] Comment on above: Expected: 12/13/2023 , Expires: 03/13/2024 Start: 11-26-2023 Patient discharge [facility] Start: 11-24-2023 Referral to service [facility] Start: 11-23-2023 Bacteria identified in Urine by Culture [facility] Start: 11-23-2023 Following clinical p athway protocol [facility] Start: 11-23-2023 Ambulation without limitation [facility] Start: 11-23-2023 Assessment of risk o f venous thromboembolism [facility] Start: 11-23-2023 Insertion of cathete r into peripheral vein [facility] Start: 11-23-2023 Providing care accor ding to standard [facility] Start: 11-23-2023 Referral to occupati onal therapist [facility] Start: 11-23-2023 Referral to service [facility] Start: 11-23-2023 [facility] Start: 11-23-2023 Hospital admission, emergency, from emergency room, medical nature [facility] Start: 11-23-2023 Verification routine [facility] Start: 11-23-2023 Admission procedure [facility] Start: 11-23-2023 [facility] Start: 11-23-2023 [facility] Start: 08-09-2023 Advance Directive Discussion Advance Directive Discussion [facility] Start: 08-09-2023 Behavioral Health Screening Behavioral Health Screening [facility] Start: 08-09-2023 Depression Assessment Depression Ass essment [facility] Start: 07-14-2023 End: 10-13-2023 Basic metabolic 2000 panel - Serum or Plasma BASIC METABOLIC PNL Lab STAT Malignant neoplasm of right ovary (HCC) Expected: 07/14/2023, Expires: 10/13/2023 [facility] Work Phone: Comment on above: Expected: 07/14/2023 , Expires: 10/13/2023 Start: 07-12-2023 Covid-19 Vaccine () Covid-19 Vaccine () [facility] Start: 06-26-2023 Shingrix Vaccine (1 of 2) Hoff grix Vaccine (1 of 2) [facility] Comment on above: Postponed from 01/21 (Insurance Coverage) Start: 06-26-2023 SHINGRIX VACCINE (2 of 3) HOFF GRIX VACCINE (2 of 3) [facility] Comment on above: Postponed from 01/21 (Insurance Coverage) Start: 06-26-2023 Urine microalbumin profile [facility] Comment on above: Postponed from 03/17 (Insurance Coverage) Start: 06-18-2023 End: 09-17-2023 Basic metabolic 2000 panel - Serum or Plasma BASIC METABOLIC PNL Lab STAT 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 (HCC) Expected: 06/18/2023, Expires: 09/17/2023 [facility] Work Phone: Comment on above: Expected: 06/18/2023 , Expires: 09/17/2023 Start: 06-07-2023 End: 09-06-2023 JAREN ISTAT BMP JAREN ISTAT BMP Lab STAT 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 (HCC) Expected: 06/07/2023, Expires: 09/06/2023 [facility] Work Phone: Comment on above: Expected: 06/07/2023 , Expires: 09/06/2023 Start: 04-09-2023 Influenza vaccination [facility] Start: 01-25-2023 End: 03-27-2023 Bacteria identified in Urine by Culture URINE CULTURE Microbiology Routine Urinary frequency Expected: 01/25/2023, Expires: 03/27/2023 [facility] Work Phone: Comment on above: Expected: 01/25/2023 , Expires: 03/27/2023 Start: 10-24-2022 COVID-19 VACCINE (5 - Mixed Product series) COVID-19 VACCINE (5 - Mixed Product series) [facility] Start: 08-09-2022 ADVANCE DIRECTIVE DISCUSSION ADVANCE DIRECTIVE DISCUSSION [facility] Start: 08-09-2022 DEPRESSION ASSESSMENT DEPRESSION ASS ESSMENT [facility] Start: 04-09-2022 Influenza vaccination INFLUENZA (#1) [facility] Start: 12-10-2021 COVID-19 VACCINE (4 - Booster) COVID-19 VACCINE (4 - Booster) [facility] Start: 11-12-2021 End: 01-12-2022 Bacteria identified in Urine by Culture URINE CULTURE Microbiology Routine Frequent UTI Confusion Expected: 11/12/2021, Expires: 01/12/2022 [facility] Work Phone: Comment on above: Expected: 11/12/2021 , Expires: 01/12/2022 Start: 11-12-2021 End: 01-12-2022 Urinalysis complete panel - Urine URINALYSIS, WITH MICROSCOPIC Lab Routine Frequent UTI Confusion Expected: 11/12/2021, Expires: 01/12/2022 [facility] Work Phone: Comment on above: Expected: 11/12/2021 , Expires: 01/12/2022 Start: 10-07-2021 COVID-19 VACCINE (4 - Booster) COVID-19 VACCINE (4 - Booster) [facility] Start: 08-09-2021 ADVANCE DIRECTIVE DISCUSSION ADVANCE DIRECTIVE DISCUSSION [facility] Start: 08-09-2021 DEPRESSION ASSESSMENT DEPRESSION ASS ESSMENT [facility] Start: 2014 RSV Vaccine (1 - 1-d ose 75+ series) RSV Vaccine (1 - 1-dose 75+ series) [facility] Start: 01-22-2012 Shingrix Vaccine (1 of 2) Hoff grix Vaccine (1 of 2) [facility] Start: 01-22-2012 SHINGRIX VACCINE (2 of 3) HOFF GRIX VACCINE (2 of 3) [facility] Start: 10-22-2005 Screening for malign ant neoplasm of cervix Cervical Cancer Screening [facility] Start: 1999 RSV Vaccine (1 - 1-d ose 60+ series) RSV Vaccine (1 - 1-dose 60+ series) [facility] Start: 1958 Urine microalbumin profile [facility] Start: 1957 Anxiety Screening Anxiety Screening [facility] Start: 1957 Depression Screening Depression Scre ening [facility] End: 06-06-2024 Cancer Ag 125 [Units/volume] in Serum or Plasma CA 125 BLD Lab Routine 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 (HCC) Every 3 weeks for 30 Occurrences starting 06/07/2023 until 06/06/2024 [facility] Work Phone: Comment on above: Every 3 weeks for 30 Occurrences starting 06/07/2023 until 06/06/2024 End: 06-06-2024 CBC W Auto Differential panel - Blood CBC + DIFF Lab STAT 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 (HCC) Every 3 weeks for 30 Occurrences starting 06/07/2023 until 06/06/2024 [facility] Work Phone: Comment on above: Every 3 weeks for 30 Occurrences starting 06/07/2023 until 06/06/2024 End: 06-06-2024 Comprehensive metabolic 2000 panel - Serum or Plasma COMP METABOLIC PANEL Lab STAT 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 (HCC) Every 3 weeks for 30 Occurrences starting 06/07/2023 until 06/06/2024 [facility] Work Phone: Comment on above: Every 3 weeks for 30 Occurrences starting 06/07/2023 until 06/06/2024 End: 03-22-2024 Echocardiography ECHO Cardiology KARLENE Preop examination 1 Occurrences starting 03/22/2023 until 03/22/2024 [facility] Work Phone: Comment on above: 1 Occurrences starti ng 03/22/2023 until 03/22/2024 End: 06-06-2024 Magnesium [Mass/volume] in Serum or Plasma MAGNESIUM BLD Lab Routine 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 (HCC) Every 3 weeks for 30 Occurrences starting 06/07/2023 until 06/06/2024 [facility] Work Phone: Comment on above: Every 3 weeks for 30 Occurrences starting 06/07/2023 until 06/06/2024 OXIMETRY - NOCTURNAL OXIMETRY - NOCTURNAL Procedures Routine Hypoxia Ordered: 05/01/2022 [facility] Work Phone: Comment on above: Ordered: 05/01/2022 End: 05-31-2023 OXIMETRY WITH AMBULATION OXIMETRY WITH AMBULATION PFT Routine Hypoxia 1 Occurrences starting 05/01/2022 until 05/31/2023 [facility] Work Phone: Comment on above: 1 Occurrences starti ng 05/01/2022 until 05/31/2023 PAIN PANEL, UR QUANT PAIN PANEL, UR QUANT Lab Routine Osteoarthritis of multiple joints, unspecified osteoarthritis type Medication management Ordered: 12/12/2021 [facility] Work Phone: Comment on above: Ordered: 12/12/2021 PAIN PANEL, UR QUANT PAIN PANEL, UR QUANT Lab Routine Osteoarthritis of multiple joints, unspecified osteoarthritis type Medication management Ordered: 12/12/2021 [facility] Work Phone: Comment on above: Ordered: 12/12/2021 Patient Education ED Back Sprain/Strain W [facility] Work Phone: Patient referral [facility] Work Phone: PT PLAN OF CARE CERTIFICATION PT PLAN OF CARE CERTIFICATION Procedures Routine Sciatica, right side Falls, subsequent encounter Ordered: 02/02/2023 [facility] Comment on above: Ordered: 02/02/2023 End: 02-26-2024 Radex spine lumbosacral 2/3 views XR LUMBAR GENERAL 3V AP/LAT/L5-S1 Radiology Routine Sciatica, right side Fall, subsequent encounter 1 Occurrences starting 01/27/2023 until 02/26/2024 [facility] Work Phone: Comment on above: 1 Occurrences starti ng 01/27/2023 until 02/26/2024 Radex spine lumbosac ral 2/3 views XR LUMBAR GENERAL 3V AP/LAT/L5-S1 Radiology Routine Sciatica, right side Fall, subsequent encounter 01/27/2023 12:01 PM EDT [facility] Work Phone: End: 08-18-2023 Radiologic exam chest 2 views XR CHEST 2V FRONTAL/LAT Radiology STAT Acute cough Wheezing 1 Occurrences starting 07/19/2022 until 08/18/2023 [facility] Work Phone: Comment on above: 1 Occurrences starti ng 07/19/2022 until 08/18/2023 Radiologic exam ches t 2 views XR CHEST 2V FRONTAL/LAT Radiology Routine Ovarian mass Preop examination 03/22/2023 1:40 PM EDT [facility] Work Phone: SPECIMEN VALIDITY, URINE SPECIME N VALIDITY, URINE Lab Routine Osteoarthritis of multiple joints, unspecified osteoarthritis type Medication management Ordered: 12/12/2021 [facility] Work Phone: Comment on above: Ordered: 12/12/2021 TOX SCREEN ROUT UR TOX SCREEN RO UT UR Lab Routine Osteoarthritis of multiple joints, unspecified osteoarthritis type Medication management Ordered: 12/12/2021 [facility] Work Phone: Comment on above: Ordered: 12/12/2021 [facility] Immunizations Immunization Date Immunization Notes Care Provider Jt vidal 05-17-2023 COVID-19 vaccine, ag e 12+ yr, season ([employer]) Carl Encarnacion MD Work Phone: [facility] 05-17-2023 influenza (HD-IIV4) vaccine, age 65+ yr, high dose, quadrivalent, PF (FLUZONE HIGH-DOSE) Carl Encarnacion MD Work Phone: [facility] 05-17-2023 influenza virus vacc ine, unspecified formulation USMAN CHILDS MD FACP [facility] 05-17-2023 SARS-CoV-2 (COVID-19 ) [id number] USMAN CHILDS MD [facility] [address] [facility] Comment on above: Result Comment: 2023: TPV80 06-26-2022 COVID-19 booster vaccine, age 12+ yr, bivalent (PFIZER-BIONTECH) Carl Encarnacion MD Work Phone: [facility] 06-26-2022 influenza, high-dose , quadrivalent vaccine (FLUZONE HIGH DOSE QUADRIVALENT) Carl Encarnacion MD Work Phone: [facility] 06-26-2022 influenza virus vacc ine, unspecified formulation Annmarie Tucker APRN.[facility] Work Phone: [facility] 08-12-2021 COVID-19 vaccine, ag e 12+ yr (PFIZER-BIONTECH - PURPLE TOP) Carl Encarnacion MD Work Phone: [facility] Work Phone: Comment on above: Result Comment: 2023: INDIVIDUALS OVER 80 YEARS OF AGE 1005-31-2021 influenza virus vacc ine, unspecified formulation USMAN CHILDS MD [facility] [address] [facility] 05-31-2021 influenza, injectabl e, quadrivalent, preservative free [facility] 05-31-2021 influenza, seasonal, injectable [facility] 09-29-2020 COVID-19 vaccine, ag e 12+ yr (PFIZER-BIONTECH - PURPLE TOP) Carl Encarnacion MD Work Phone: [facility] Work Phone: Comment on above: Result Comment: 2023: TPV80 09-05-2020 Covid (Pfizer) [facility] Comment on above: Result Comment: 2023: TPV80 09-05-2020 COVID-19 vaccine, fu ll dose (MODERNA) Carl Encarnacion MD Work Phone: [facility] Work Phone: 06-15-2020 influenza virus vacc ine, unspecified formulation USMAN CHILDS MD FAC [facility] 06-15-2020 influenza, injectabl e, quadrivalent, contains preservative Carl Encarnacion MD Work Phone: [facility] 05-08-2019 influenza virus vacc ine, unspecified formulation USMAN CHILDS MD FACP [facility] 05-08-2019 influenza, high dose seasonal, preservative-free Carl Encarnacion MD Work Phone: [facility] 05-10-2018 influenza virus vacc ine, unspecified formulation USMAN CHILDS MD FAC [facility] 05-10-2018 influenza, high dose seasonal, preservative-free Carl Encarnacion MD Work Phone: [facility] 05-17-2017 influenza virus vacc ine, unspecified formulation USMAN CHILDS MD FAC [facility] 05-17-2017 influenza, high dose seasonal, preservative-free Carl Encarnacion MD Work Phone: [facility] 02-26-2017 pneumococcal polysaccharide vaccine, 23 valent Carl Encarnacion MD Work Phone: [facility] 05-13-2016 influenza virus vacc ine, unspecified formulation USMAN CHILDS MD FAC [facility] 05-13-2016 influenza, high dose seasonal, preservative-free Carl Encarnacion MD Work Phone: [facility] 02-27-2016 pneumococcal conjuga te vaccine, 13 valent Carl Encarnacion MD Work Phone: [facility] 07-16-2015 influenza virus vacc ine, unspecified formulation USMAN CHILDS MD [facility] [address] [facility] 07-16-2015 influenza, injectabl e, quadrivalent, contains preservative Carl Encarnacion MD Work Phone: [facility] Work Phone: 05-11-2014 influenza virus vacc ine, unspecified formulation USMAN CHILDS MD [facility] [facility] 05-11-2014 influenza, seasonal, injectable Carl Encarnacion MD Work Phone: [facility] Work Phone: 07-17-2013 influenza virus vacc ine, unspecified formulation Carl Encarnacion MD Work Phone: [facility] Work Phone: 07-09-2012 influenza virus vacc ine, unspecified formulation Carl Encarnacion MD Work Phone: [facility] Work Phone: 11-27-2011 zoster vaccine, live Carl Encarnacion MD Work Phone: [facility] 06-24-2010 influenza virus vacc ine, unspecified formulation Carl Encarnacion MD Work Phone: [facility] 07-13-2006 influenza virus vacc ine, unspecified formulation Carl Encarnacion MD Work Phone: [facility] Work Phone: 07-13-2006 pneumococcal polysaccharide vaccine, 23 francine Encarnacion MD Work Phone: [facility] Work Phone: Payers Date Payer Category Payer Private Health Insurance [id number] 2024 Self-pay [id number] 2024 Medicaid [id number] 2023 Medicare [id number] 2021 Unknown ANTHEM BLUE CROS S AND BLUE SHIELD ANTHEM MEDIBLUE ACCESS [id number] 2021-Present [phone] [address] [place] [address] PPO [id number] 2021 Unknown [id number]. [id number] 2021 Medicare [id number] 2015 Unknown HOSPITAL/MEDICAL GENERIC MEDICAL GENERIC [id number] 2015-Present [phone] [place] [address] Indemnity [id number] 2004 Medicare MEDICARE MEDICAR E A AND B [id number] 2004-Present [phone] [place] [address] Medicare [id number] 1939 Unknown [id number] 2.16.840.1.914205.3.579.2. 1939 Unknown [id number] 2.16.840.1.897650.3.579.2. 62 1939 Unknown [id number] 2.16.840.1.473190.3.579.2. 1939 Unknown [id number] 2.16.840.1.100850.3.579.2. 62 1939 Unknown [id number] 2.16.840.1.324916.3.579.2. 62 1939 Unknown [id number] 2.840.1.093005.3.579.2. 627 1939 Unknown [id number] 2.840.1.047315.3.579.2. 627 Unknown [id number] Unknown COMMERCIAL OTHER [id number] Unknown [id number] .840.1.508152.3.579.2. 462 Unknown [id number] 2.840.1.789594.3.579.2. 462 Unknown [id number] 2.840.1.557133.3.579.2. 462 Unknown [id number] 2.840.1.801130.3.579.2. 462 Unknown [id number] 2.840.1.602261.3.579.2. 462 Unknown [id number] .840.1.352488.3.579.2. 462 Unknown [id number] 2.840.1.460082.3.579.2. 462 Unknown [id number] .840.1.899526.3.579.2. 462 Unknown [id number] .840.1.353462.3.579.2. 462 Unknown [id number] .840.1.464239.3.579.2. 462 Unknown [id number] .840.1.097019.3.579.2. 462 Unknown [id number] 2.840.1.687409.3.579.2. 462 Unknown [id number] 2.840.1.236750.3.579.2. 462 Unknown [id number] 2.840.1.260963.3.579.2. 462 Unknown [id number] 2.16.840.1.060928.3.579.2. 462 Unknown [id number] 2.16.840.1.858148.3.579.2. 462 Unknown [id number] 2.16.840.1.697378.3.579.2. 462 Unknown [id number] 2.16.840.1.782972.3.579.2. 462 Unknown [id number] 2.16840.1.043542.3.579.2. 462 Unknown [id number] 2.840.1.080093.3.579.2. 462 Unknown [id number] 2.840.1.238446.3.579.2. 462 Unknown [id number] 2.840.1.359393.3.579.2. 462 Unknown [id number] 2.840.1.543607.3.579.2. 462 Unknown [id number] 2.840.1.275156.3.579.2. 462 Unknown [id number] 2.840.1.081412.3.579.2. 462 Unknown [id number] 2.840.1.765024.3.579.2. 462 Unknown [id number] 2.840.1.998074.3.579.2. 462 Unknown [id number] 2.840.1.488163.3.579.2. 462 Unknown [id number] 2.16.840.1.889334.3.579.2. 462 Unknown [id number] 2.16.840.1.338964.3.579.2. 462 Unknown [id number] 2.16.840.1.202902.3.579.2. 462 Unknown [id number] 2.16.840.1.327356.3.579.2. 462 Unknown [id number] 2.840.1.967480.3.579.2. 462 Unknown [id number] 2.16.840.1.894163.3.579.2. 462 Unknown [id number] 2.16.840.1.542924.3.579.2. 462 Unknown [id number] 2.16.840.1.005513.3.579.2. 462 Unknown [id number] 2.16.840.1.465096.3.579.2. 462 Unknown [id number] 2.16.840.1.475515.3.579.2. 462 Unknown [id number] 2.16.840.1.580697.3.579.2. 462 Unknown [id number] 2.16.840.1.939710.3.579.2. 462 Unknown [id number] 2.16.840.1.829266.3.579.2. 462 Unknown [id number] 2.16.840.1.519794.3.579.2. 462 Social History Date Type Detail Facility Start: 11-23-2011 End: 09-16-2023 Tobacco smoking status NHIS Never smoked tobacco [facility] Start: 06-17-2021 End: 07-19-2022 Alcohol intake Current non-drinker of alcohol (finding) [facility] Start: 1940 Sex Assigned At Not on file C [facility] Start: 12-02-2021 End: 06-26-2022 Exposure to SARS-CoV-2 (event) Not sure [facility] Start: 11-23-2011 End: 06-02-2023 Tobacco use and exposure Smokeless tobacco non-user [facility] Start: 01-12-2023 End: 11-23-2023 Tobacco smoking status NHIS Unknown if ever smoked [facility] Start: 1940 Sex Assigned At Female W [facility] Start: 07-15-2020 End: 03-10-2023 History of Social function [facility] Work Phone: Start: 07-15-2020 End: 03-10-2023 Tobacco use panel [facility] Work Phone: Adult Depression Screening Assessment 0 [facility] Work Phone: Start: 06-02-2023 End: 03-14-2024 Tobacco smoking status NHIS Ex-smoker [facility] History of tobacco use Current smoker [facility] History of tobacco use Cigarette Smoker C [facility] Start: 06-04-2023 Gender identity Identifies as female gender (finding) [facility] Start: 06-04-2023 Sexual orientation Heterosexual (fin ding) [facility] Start: 11-09-2024 End: 11-24-2024 Sex Female (finding) [facility] Goals Date Patient Goal Desired Activity /State Functional Status Date Assessment Result Facility 02-14-2024 Functional Status Room check performed [facility] 02-14-2024 [facility] Functional Status Skin Care Prev entative Intervention(s) heel(s)s elevated [facility] 02-13-2024 [facility]-12[facility]24 Functional Status Lunch Percent 50 [facility] 02-12-2024 [facility] Functional Status [facility] 02-11-2024 Functional Status Min A [facility] 02-11-2024 Functional Status bilateral knee high removed/off [facility] 02-11-2024 Functional Status Reason SCD Rem nuvia/Off Patient refused [facility] 02-10-2024 Functional Status [facility] 02-10-2024 Functional Status [facility] 02-10-[facility]24 [facility] Functional Status Pt. normally d oes sponge bathing. [facility] 02-09-2024 Functional Status NPO Status Maintained A [facility] 02-08-2024 Functional Status [facility] 02-07-2024 [facility]-07[facility] Functional Status Transparent silicone dr essing [facility] 02-07-2024 Functional Status Assistive Equi pment elevated on pillows [facility] 02-07-2024 Functional Status [facility] 02-06-2024 Functional Status [facility] 02-06-2024 Functional Status [facility] 02-06-2024 Functional Status [facility] 02-05-2024 Functional Status None [facility] 02-05-2024 Functional Status Awake [facility] 02-04-2024 Functional Status [facility] 02-04-2024 Functional Status Identified as high risk, Fall ID band on, Door open, Non-Slip footwear, Room check performed [facility] 02-04-2024 Functional Status [facility] 02-04-2024 Functional Status [facility] 02-04-2024 Functional Status 25 [facility] 02-04-2024 Functional Status [facility] 02-03-2024 Functional Status Up to Chair Re rohini up in chair [facility] 02-03-2024 Functional Status Pt. normally d oes sponge bathing. [facility] 02-03-2024 Functional Status [facility] 02-01-2024 Functional Status Single level home [facility] 02-01-2024 Functional Status Sensory Deficits None A [facility] 02-01-2024 Functional Status Max A Rosa [facility] 02-01-2024 Functional Status Door open, Non-Slip footwear, Room check performed [facility] 02-01-2024 Functional Status [facility] 02-01-2024 Functional Status [facility] 01-31-2024 Functional Status Repositioned right side [facility] 01-31-2024 Functional Status [facility] 01-31-2024 Functional Status [facility] 01-31-2024 Functional Status [facility] 01-31-2024 Functional Status [facility] 01-31-2024 Functional Status [facility] 01-31-2024 Functional Status [facility] 01-30-2024 Functional Status Foam dressing [facility] 01-30-2024 Functional Status [facility] Functional Status Dinner Percent 25 [facility] 01-29-2024 Functional Status Max A [facility] 01-29[facility] Status [facility] 01-29[facility] Functional Status [facility] 01-28-2024 Functional Status [facility] 01-28[facility] Functional Status [facility] 01-28-2024 Functional Status [facility] 01-27-2024 Functional Status [facility] 01-27-2024 Functional Status Mod A [facility] 01-27-[facility] Functional Status [facility]-27[facility] Functional Status Min A 9 [facility] 01-26-[facility] Functional Status Independent [facility] 01-26-[facility]24 Functional Status [facility] 01-25-[facility]24 Functional Status [facility] 01-25-[facility]24 Functional Status [facility] 01-24-2024 Functional Status Single level home [facility] 01-23-2024 Functional Status [facility] 01-23-[facility]24 Functional Status [facility] 01-22-2024 Functional Status [facility] 01-22-2024 Functional Status Sensory Deficits None A [facility] 12-11-2023 Functional Status Repositions self [facility] 12-11-2023 Functional Status Room check performed [facility] 12-11-2023 Functional Status [facility] Ho luis fernando [facility] 12-11-2023 Functional Status [facility] 12-10-2023 Functional Status Activity Statu s ADL Sleeping quietly with easy respirations [facility] 12-10-2023 Functional Status bilateral knee high removed/off [facility] 12-10-2023 Functional Status [facility] 12-10-2023 Functional Status [facility] 12-10-2023 Functional Status Mod I [facility] 12-10-2023 Functional Status [facility] 12-10-2023 Functional Status [facility] 12-09-2023 Functional Status [facility] 12-09-2023 Functional Status Supervised [facility] 12-09-2023 Functional Status [facility] 12-09-2023 Functional Status [facility] 12-08-2023 Functional Status [facility] 12-08-2023 Functional Status [facility] 12-07-2023 Functional Status Rosa Maria Edwardo gould [facility] 12-07-2023 Functional Status [facility] 12-07-2023 Functional Status Linen Change Done [facility] 12-07-2023 Functional Status [facility] 12-06-2023 Functional Status [facility] 12-06-2023 Functional Status [facility]-05-[facility]23 Functional Status Skin Care Prev entative Intervention(s) heel(s)s elevated [facility] 12-05-2023 Functional Status Rosa Maria gould [facility] 12-05-2023 Functional Status Rosa Maria gould [facility] 12-05-2023 Functional Status [facility] 12-04-2023 Functional Status Lunch Percent 50 [facility] 12-04-2023 Functional Status [facility] 12-04-2023 Functional Status [facility] 12-03-2023 Functional Status Independent 10 [facility] 12-03-2023 Functional Status [facility] 12-02-2023 Functional Status Up to Chair Returned to bed [facility] 12-02-2023 Functional Status [facility] 12-02-2023 Functional Status Dinner Percent 5 [facility] 12-02-2023 Functional Status [facility] 12-01-2023 Functional Status [facility] 12-01-2023 Functional Status [facility] 11-30-2023 Functional Status [facility] 11-30-2023 Functional Status [facility] 11-29-2023 Functional Status Mod A [facility] 11-28-2023 Functional Status Done [facility] 11-27-2023 Functional Status Single level home [facility] 11-27-2023 Functional Status Rosa [facility] 11-26-2023 Functional Status Sensory Deficits None A [facility] 11-26-2023 Functional status Chair [facility] Work Phone: Mental Status Date Assessment Result Facility 02-14-2024 Mental Status Orientation Asse ssment Identifies self, Not oriented to time, Oriented to person 1 [facility] 02-14-2024 Mental Status Oriented x 4 [facility] 02-13-2024 Mental Status [facility] 02-13-2024 Mental Status [facility] 02-04-2024 Mental Status Not oriented to place, Not oriented to time, Not oriented to situation, Forgetful, Follows simple commands [facility] 02-04-2024 Mental Status [facility] 02-03-2024 Mental Status [facility] 02-01-2024 Mental Status Orientation Asse ssment Oriented x 4 [facility] 02-01-2024 Mental Status Not oriented to person, Not oriented to time [facility] 01-31-2024 Mental Status [facility] 01-31-2024 Mental Status [facility] 01-31-2024 Mental Status [facility] 12-11-2023 Mental Status Oriented x 4 [facility] 12-10-2023 Mental Status [facility] 12-10-2023 Mental Status [facility] 12-10-2023 Mental Status [facility] 11-26-2023 Cognitive function Voice/Name [facility] Work Phone: 11-23-2023 Cognitive function Level Of Cons ciousness Awake;Alert;Appropriate;Follow s Commands [facility] Work Phone: Clinical Notes 06-18-2021 to 12-04-2024 Note Date & Type Note Facility 12-04-2024 Evaluation note Diagnosis Onset Date Resolution Osteoarthritis of sacroiliac joint noneactive December 04 3:28pm [facility] Work Phone: [phone]) 580-897107-09-2024 Telephone encounter Note* Telephone Encounter - Carl Encarnacion MD - 02/15/2024 2:00 PM EDT The following approved medication requests have been transmitted electronically. Requested Prescriptions Signed Prescriptions Disp Refills traMADol (ULTRAM) 50 mg tablet 60 tablet 0 Sig: Take 1 tablet by mouth two times a day for 30 days. for arthritis pain. Authorizing Provider: CARL ENCARNACION MD PDMP website checked and validated. All prescriptions have been APPROPRIATELY filled. No suspiciousactivity was identified. 02/15/2024 by Carl Encarnacion MD [facility]07-09-2024 Miscellaneous Notes* Telephone Encounter - Carl Encarnacion MD - 02/15/2024 2:00 PM EDT The following approved medication requests have been transmitted electronically. Requested Prescriptions Signed Prescriptions Disp Refills traMADol (ULTRAM) 50 mg tablet 60 tablet 0 Sig: Take 1 tablet by mouth two times a day for 30 days. for arthritis pain. Authorizing Provider: CARL ENC[facility]NACION MD [facility] and [facility]. All prescriptions have been APPROPRIATELY filled. No suspiciousactivity was identified. 02/15/2024 by Carl Encarnacion MD * Telephone Encounter - Jeremiah Puckett LPN - 02/15/2024 11:25 AM EDT Prescription Refill Information The patient has been [...] Puckett LPN February 15, 2024 11:25 AM * Telephone Encounter - Stephanie Wilder - 02/15/2024 8:15 AM EDT Prescription Refill Information The patient has been [...] 15, 2024 8:15 AM [facility] encounter Note * Telephone Encounter - Jeremiah Puckett LPN - 02/15/2024 11:25 AM EDT Prescription Refill Information The patient has been [...] Puckett LPN February 15, 2024 11:25 AM [facility]07-09-2024 Telephone encounter Note* Telephone Encounter - Stephanie Wilder - 02/15/2024 8:15 AM EDT Prescription Refill Information The patient has been [...] Stephanie Estrada February 15, 2024 8:15 AM [facility]07-08-2024 Hospital Discharge instructions Patient Education 02/14/2024 13:47:33 Bacteremia, Adult [...] a heart ultrasound. These check for a sourceof infection in other parts of your body, [...] given an antibiotic to kill most types ofblood bacteria. If tests show that a certain [...] Follow these instructions at home: Medicines Take jnlc-vsy-bxmldsn and prescription medicines only as told by your health care provider. If you were prescribed an antibiotic medicine, take it as told by your health care provider. Do notstop taking the antibiotic even if you start to feel better. General instructions Rest as needed. Ask your health care provider when you may return to normal activities. Drink enough fluid to keep your urine pale yellow. Do not use any products that contain nicotine or tobacco, such as cigarettes, e- cigarettes, and chewing tobacco. If you need help quitting, ask your health care provider. Keep all follow-up visits as told by your health care provider. This is important. How is this prevented? Wash your hands regularly with soap and water. If soap and water are not available, use hand auto body mechanic apprentice. You should wash your hands: ?After using [...] health care provider. Practice good oral hygiene. Ransom your teeth two times a day, and [...] told by your health care provider. Do notstop taking the antibiotic even if you start [...] 05/09/2007 Document Revised: 12/15/2019 Document Reviewed: 12/15/2019 [employer] Patient Education 2019 [employer]. Follow Up Care 02/04/2024 10:08:29 With:LINDA ANNE BA, MD, Infectious Disease, Infectious Disease Group Address[facility] [place] [address] [place] [address] [phone] When:Within 3 Week(s) Comments:Schedule appointment as soon as possible With:Alyson Blank for skilled care, report to [phone] Address:Unknown When:1-2 days With:ESTER BEJARANO Address: [address] [address]- Business (1) When:1-2 days [facility] 07-08-2024 Note Discharge Instructions Thank you for allowing [facility] to assist you with your healthcare needs. The following is importantdischarge information regarding your hospital visit. Your Care Team ESTER BEJARANO MSN, OFFAL ROLLER What to do next Instructions From Your [...] Wednesday and send results to fax number [phone] Anne Please call Dr. Anne's office for a follow-up appointment in 2-4 weeks, Phone number [phone]. Scheduled Follow-Up Appointments Appointment Type When Where Contact Information StatusEcho - Echocardiogram Adult 08/21/2024 11:00 AM [facility] [phone] Confirmed CV OV 09/21/2024 01:15 PM [facility] [place] Confirmed Follow Up Appointments Follow Up with LINDA ANNE BA, MD, Infectious Disease, Infectious Disease Group When:In 3 weeks Where:[facility] [place] [address] [place] [address]- [phone] Additional Information: Schedule appointment as soon as possible Follow Up with [facility] skilled care, report to [phone] When:Within 1-2 days Follow Up with ESTER BEJARANO When:Within 1-2 days Where:[facility] [address] [place] [phone] Business (1) The Following Activity and Diet [...] a heart ultrasound. These check for a sourceof infection in other parts of your body, [...] given an antibiotic to kill most types ofblood bacteria. If tests show that a certain [...] Follow these instructions at home: Medicines Take crne-lcq-rrlbmrr and prescription medicines only as told by your health care provider. If you were prescribed an antibiotic medicine, take it as told by your health care provider. Do notstop taking the antibiotic even if you start to feel better. General instructions Rest as needed. Ask your health care provider when you may return to normal activities. Drink enough fluid to keep your urine pale yellow. Do not use any products that contain nicotine or tobacco, such as cigarettes, e- cigarettes, and chewing tobacco. If you need help quitting, ask your health care provider. Keep all follow-up visits as told by your health care provider. This is important. How is this prevented? Wash your hands regularly with soap and water. If soap and water are not available, use hand auto body mechanic apprentice. You should wash your hands: ? After [...] health care provider. Practice good oral hygiene. Ransom your teeth two times a day, and [...] told by your health care provider. Do notstop taking the antibiotic even if you start [...] 05/09/2007 Document Revised: 12/15/2019 Document Reviewed: 12/15/2019 [employer] Patient Education 2020 [employer] Additional Information VACCINATE! IT SAVES LIVES! Members of the community who have not yet received the COVID-19 vaccine and would like to receive it can visit one of [facility] vaccine clinics. There are many vaccine clinic locations within the [facility]. For locations and available times, please visit [email or web address] It is important to note that some COVID mobile vaccine clinics are held outdoors and may be canceled in rainy or stormy conditions. To learn more about pediatric vaccinations (ages 5-11), we invite you to visit the [facility] webpage. [email or web address] learn more about the COVID-19 vaccine, we invite you to visit the CDC website for a list of frequently asked questions.https://www.cdc.gov/coronavirus/2019-ncov/vaccines/faq.html [facility] Patient Portal Access Instructions: Stay connected with your healthcare team and access your personal medical information anytime with the [facility] Patient Portal. Please follow the directions below to create your [facility] account: 1.Access the email account you provided upon registration to the hospital/physician office.2.Look for an invitation email from [facility].3.Open the email and access the invitation link: AcceptInvitation to [facility].4.Fill in the required martinez to create your account. To access your account, visit [employer]/StorematesOneChart. Click the blue button labeled "Access Patient Portal" and then log in with the username and password that you created in the steps above. You will be able to view your test results, lab results, a summary of your visits, upcoming appointments and more. There is also a convenient messaging option where you can send secure messages to your p [employer] Enterprisesvider. In addition, you will have the ability to download any documents or summaries to your computer and/or send the information securely to a physician. Remember that your healthcare information is confidential, so carefully consider who you will allowto register on the [facility] Patient Portal for access to your information. You can also access the [facility] Patient Portal on the [employer] guille. Simply click on "Patient Portal" and then log into your account. If you would like to receive a full copy of your medical records, please contact the [facility] Medical Records Department by calling [phone], Wednesday through Wednesday between 8 a.m. and [...] Call your local pharmacy or go to [email or web address] to find one close to you.3.Make use of household items: Use cat litter or old coffee grounds to dispose medications if other options arenot available. Mix your drugs with these household products, seal them in an airtight container andthrow it into the garbage. Call [facility]: [phone] to be sure your drugs can be [...] and explained to me and I,WASHINGTON STEFANO Munsond my current condition and have read and understand these discharge instructions. I have received a written copy of the plan/instructions. If I have questions, I am aware that I should contact my doctor. Patient/Test Engine Evaluator Signature: Date/Time: Relationship to Patient: Witness Name/Signature: Date[facility]Time: [facility] [id number] Note Discharge Instructions Thank you for allowing [facility] to assist you with your healthcare needs. The following is importantdischarge information regarding your hospital visit. Your Care Team ESTER BEJARANO, OFFAL ROLLER What to do next Instructions From Your [...] Wednesday and send results to fax number [phone] Anne Please call Dr. Anne's office for a follow-up appointment in 2-4 weeks, Phone number [phone]. Scheduled Follow-Up Appointments Appointment Type When Where Contact Information StatusEcho - Echocardiogram Adult 08/21/2024 11:00 AM [facility] [phone] Confirmed CV OV 09/21/2024 01:15 PM [facility] [place] Confirmed Follow Up Appointments Follow Up with LINDA ANNE BA, MD, Infectious Disease, Infectious Disease Group When:In 3 weeks Where:[facility] [address] [place] [address]- [phone] Additional Information: Schedule appointment as soon as possible Follow Up with Alyson Blank for skilled care, report to [phone] When:Within 1-2 days Follow Up with ESTER BEJARANO When:Within 1-2 days Where:[facility] [address] [place] [address]- Business (1) The Following Activity and Diet [...] a heart ultrasound. These check for a sourceof infection in other parts of your body, [...] given an antibiotic to kill most types ofblood bacteria. If tests show that a certain [...] Follow these instructions at home: Medicines Take zkpe-qyj-qfftrsn and prescription medicines only as told by your health care provider. If you were prescribed an antibiotic medicine, take it as told by your health care provider. Do notstop taking the antibiotic even if you start to feel better. General instructions Rest as needed. Ask your health care provider when you may return to normal activities. Drink enough fluid to keep your urine pale yellow. Do not use any products that contain nicotine or tobacco, such as cigarettes, e- cigarettes, and chewing tobacco. If you need help quitting, ask your health care provider. Keep all follow-up visits as told by your health care provider. This is important. How is this prevented? Wash your hands regularly with soap and water. If soap and water are not available, use hand auto body mechanic apprentice. You should wash your hands: ? After [...] health care provider. Practice good oral hygiene. Ransom your teeth two times a day, and [...] told by your health care provider. Do notstop taking the antibiotic even if you start [...] 05/09/2007 Document Revised: 12/15/2019 Document Reviewed: 12/15/2019 ElseiCook.tw Patient Education 2020 [employer] Additional Information VACCINATE! IT SAVES LIVES! Members of the community who have not yet received the COVID-19 vaccine and would like to receive it can visit one of [facility] vaccine clinics. There are many vaccine clinic locations within the [facility]. For locations and available times, please visit [email or web address].gov/. It is important to note that some COVID mobile vaccine clinics are held outdoors and may be canceled in rainy or stormy conditions. To learn more about pediatric vaccinations (ages 5-11), we invite you to visit the [facility] webpage. https://www.[facility].org/pages/3819-Ldzmx-Vwpczfjqtxt-Zopeivimvn-Pcwkw-Dql stions.htmlTo learn more about the COVID-19 vaccine, we invite you to visit the CDC website for a list of frequently asked questions.https://www.cdc.gov/coronavirus/2019-ncov/vaccines/faq.html [facility] Patient Portal Access Instructions: Stay connected with your healthcare team and access your personal medical information anytime with the [facility] Patient Portal. Please follow the directions below to create your [facility] account: 1.Access the email account you provided upon registration to the hospital/physician office.2.Look for an invitation email from [facility].3.Open the email and access the invitation link: AcceptInvitation to [facility].4.Fill in the required martinez to create your account. To access your account, visit [email or web address]. Click the blue button labeled "Access Patient [...] who you will allowto register on the [facility] Patient Portal for access to your information. You can also access the [facility] Patient Portal on the [facility] guille. Simply click on "Patient Portal" and then log into your account. If you would like to receive a full copy of your medical records, please contact the [facility] Medical Records Department by calling [phone], Wednesday through Wednesday between 8 a.m. and [...] Call your local pharmacy or go to [email or web address] to find one close to you.3.Make use of household items: Use cat litter or old coffee grounds to dispose medications if other options arenot available. Mix your drugs with these household products, seal them in an airtight container andthrow it into the garbage. Call [facility]: [phone] to be sure your drugs can be [...] aware that I should contact my doctor. Patient/Test Engine Evaluator Signature: Date/Time: Relationship to Patient: Witness Name/Signature: Date/Time: [facility] HospitalPqmuavsw44-20-7777 Note Discharge Instructions Thank you for allowing [facility] to assist you with your healthcare needs. The following is importantdischarge information regarding your hospital visit. Your Care Team ESTER BEJARANO MSN, OFFAL ROLLER What to do next Instructions From Your [...] Wednesday and send results to fax number [phone] Anne Please call Dr. Anne's office for a follow-up appointment in 2-4 weeks, Phone number [phone]. Scheduled Follow-Up Appointments Appointment Type When Where Contact Information StatusEcho - Echocardiogram Adult 08/21/2024 11:00 AM EST [facility] [phone] Confirmed CV OV 09/21/2024 01:15 PM EST [facility] Up Appointments Follow Up with LINDA ANNE BA, MD, Infectious Disease, Infectious Disease Group When:In 3 weeks Where:[facility] [address] [place] [address]- [phone] Additional Information: Schedule appointment as soon as possible Follow Up with [facility], report to [phone] When:Within 1-2 days Follow Up with ESTER BEJARANO When:Within 1-2 days Where:[facility] [address] [place] [address]- Business (1) The Following Activity and Diet [...] a heart ultrasound. These check for a sourceof infection in other parts of your body, [...] given an antibiotic to kill most types ofblood bacteria. If tests show that a certain [...] Follow these instructions at home: Medicines Take hnlb-uag-noggwji and prescription medicines only as told by your health care provider. If you were prescribed an antibiotic medicine, take it as told by your health care provider. Do notstop taking the antibiotic even if you start to feel better. General instructions Rest as needed. Ask your health care provider when you may return to normal activities. Drink enough fluid to keep your urine pale yellow. Do not use any products that contain nicotine or tobacco, such as cigarettes, e- cigarettes, and chewing tobacco. If you need help quitting, ask your health care provider. Keep all follow-up visits as told by your health care provider. This is important. How is this prevented? Wash your hands regularly with soap and water. If soap and water are not available, use hand auto body mechanic apprentice. You should wash your hands: ? After [...] health care provider. Practice good oral hygiene. Ransom your teeth two times a day, and [...] told by your health care provider. Do notstop taking the antibiotic even if you start [...] Document Reviewed: 12/15/2019 Elsevier Patient Education 2020 [employer]. Additional Information VACCINATE! IT SAVES LIVES! Members of the community who have not yet received the COVID-19 vaccine and would like to receive it can visit one of [facility] vaccine clinics. There are many vaccine clinic locations within the [facility]. For locations and available times, please visit [email or web address].[place].gov/. It is important to note that some COVID mobile vaccine clinics are held outdoors and may be canceled in rainy or stormy conditions. To learn more about pediatric vaccinations (ages 5-11), we invite you to visit the [facility] webpage. https://www.[facility].org/pages/0015-Rqnfa-Uabmhopetxz-Eomlrpulgq-Lzoyg-Zao stions.htmlTo learn more about the COVID-19 vaccine, we invite you to visit the CDC website for a list of frequently asked questions.https://www.cdc.gov/coronavirus/2019-ncov/vaccines/faq.html [facility] Patient Portal Access Instructions: Stay connected with your healthcare team and access your personal medical information anytime with the [facility] Patient Portal. Please follow the directions below to create your [facility] account: 1.Access the email account you provided upon registration to the hospital/physician office.2.Look for an invitation email from [facility].3.Open the email and access the invitation link: AcceptInvitation to [facility].4.Fill in the required martinez to create your account. To access your account, visit [email or web address]. Click the blue button labeled "Access Patient Portal" and then log in with the username and password that you created in the steps above. You will be able to view your test results, lab results, a summary of your visits, upcoming appointments and more. There is also a convenient messaging option where you can send secure messages to your p Somero Enterprisesvider. In addition, you will have the ability to download any documents or summaries to your computer and/or send the information securely to a physician. Remember that your healthcare information is confidential, so carefully consider who you will allowto register on the [facility] Patient Portal for access to your information. You can also access the [facility] Patient Portal on the [facility] guille. Simply click on "Patient Portal" and then log into your account. If you would like to receive a full copy of your medical records, please contact the [facility] Medical Records Department by calling [phone], Wednesday through Wednesday between 8 a.m. and [...] Call your local pharmacy or go to [email or web address] to find one close to you.3.Make use of household items: Use cat litter or old coffee grounds to dispose medications if other options arenot available. Mix your drugs with these household products, seal them in an airtight container andthrow it into the garbage. Call [facility]: [phone] to be sure your drugs can be [...] aware that I should contact my doctor. Patient/Test Engine Evaluator Signature: Date/Time: Relationship to Patient: Witness Name/Signature: Date/Time: [facility] HospitalAqbbkctq65-78-9407 Note Date of Service 02/13/2024 Subjective Resting [...] mcg tablet 88 mcg 1 tab(s), Oral, Mon//Wed//Wed levothyroxine 88 mcg tablet 88 mcg 1 [...] per recommendations by ID. Repeat blood cultures fromcouple days ago with no growth to date. Responding well to antibiotics. TTE without any evidence that is definitive of any aortic valve vegetation although does state thatthere is some mobile filiform echodensity. Therefore SALAZAR [...] placement. 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 She would need follow-up cardiac MRI in the outpatient setting. Will follow-up with cardiology as well as ID. Please continue ampicillin 2 g IV every 4 hours and ceftriaxone 2 g IV every 12 hours, tentative end date March 18, 2024 Please obtain CBC, differential, hepatic panel, renal panel every Wednesday and send results to fax number [phone] Anne Please call Dr. Anne's office for a follow-up appointment in 2-4 weeks, Phone number [phone]. PICC line placed 02/11/2024. Functioning well. Regards to the patient's retention: Appears to have some symptoms of constipation, which is now improved. Allen catheter removed Resume home medications as deemed appropriate. Point of contact: Patient's daughter Stefano: [phone] Above plan of care was discussed with the patient at bedside, all questions answered appropriately. This is a note transcribed by me, the attending physician on service using the '[employer]' dictation software. Please excuse any grammatical errors, repetitions/duplications if any are present in the entirety of this note. Thank you. 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 Nuha Curtis MD [facility] Messenger guille or Pager [phone] Problem List/Past Medical History Ongoing Acquired hypothyroidism [...] CANDIDA CURTIS MD on 02/05/2024 01:36 PM [facility] HospitalVvzwoyot15-38-7691 Cardiology Progress note Date of Service 02/07/2024 [...] ALIA MCCORMACK MD on 02/07/2024 05:47 PM [facility] HospitalJckvnzqw53-43-6205 Note Date of Service 02/12/2024 Subjective Resting in bed, no acute complaints overnight, afebrile, having regular bowel movements, toleratingdiet. Objective Vitals and Measurements T: 36.6 C [...] per recommendations by ID. Repeat blood cultures fromcouple days ago with no growth to date. Responding well to antibiotics. TTE without any evidence that is definitive of any aortic valve vegetation although does state thatthere is some mobile filiform echodensity. Therefore SALAZAR [...] placement. 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 She would need follow-up cardiac MRI in the outpatient setting. Will follow-up with cardiology as well as ID. Please continue ampicillin 2 g IV every 4 hours and ceftriaxone 2 g IV every 12 hours, tentative end date March 18, 2024 Please obtain CBC, differential, hepatic panel, renal panel every Wednesday and send results to fax number [phone] Anne Please call Dr. Anne's office for a follow-up appointment in 2-4 weeks, Phone number [phone]. PICC line placed 02/11/2024. Functioning well. Regards to the patient's retention: Appears to have some symptoms of constipation, which is now improved. Allen catheter removed Resume home medications as deemed appropriate. Point of contact: Patient's daughter Stefano: [phone] Above plan of care was discussed with the patient at bedside, all questions answered appropriately. This is a note transcribed by me, the attending physician on service using the '[employer]' dictation software. Please excuse any grammatical errors, repetitions/duplications if any are present in the entirety of this note. Thank you. Anticipated Date of Discharge Await pre-CERT: Pre-CERT is obtained, patient can be discharged. Digitally Signed by DRE PHIPPS MD on 02/12/2024 01:17 PM [facility] [id number] Cardiology Progress note Date of Service 02/09/2024 [...] ALIA MCCORMACK MD on 02/09/2024 09:54 PM [facility] HospitalEebrhddt83-99-5147 Procedure note Vascular Access Team Post Procedure Note Procedure: Peripherally Inserted Central Catheter (PICC) Indication: Alf Antibiotics Details: Consult for PICC Placement received. Chart Reviewed. Informed consent was obtained and verified prior to the procedure. A pre-procedure Time Out was performed confirming correct patient and procedure. A _ Double Lumen PICC was inserted at the bedside under sterile technique. Vacular accesswas obtained with ultrasound guidance. PICC flushes easily with good blood return. Patient tolerated placement of PICC well. PICC education provided. Anesthesia: Local subcutaneous injection using 3ml 2% Lidocaine Access Vessel: Left Brachial Catheter Length: 40cm Internal Length: 40cm External Length: 0cm Arm Circ: 32cm Lot #: [id number] Complications: None Inserted by: Reno Tapia RN Plan: Chest x-ray complete and confirmed PICC placement in SVC. May use PICC now per protocol. Digitally Signed by MICH Tapia on 02/11/2024 05:39 PM [facility] HospitalUqpsfapy05-63-2801 Note ORIGINAL EXAMINATION: ONE XRAY VIEW OF [...] Sign Date: 02/11/2024 5:26:58 PM Ordering Provider: [facility]07-05-2024 Note Date of Service 02/11/2024 Subjective Patient [...] has been having bowel movements in the last24 hours, no diarrhea or constipation currently. Objective [...] per recommendations by ID. Repeat blood cultures fromcouple days ago with no growth to date. Responding well to antibiotics. TTE without any evidence that is definitive of any aortic valve vegetation although does state thatthere is some mobile filiform echodensity. Therefore SALAZAR [...] placement. 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 She would need follow-up cardiac MRI in the outpatient setting. Will follow-up with cardiology as well as ID. Please continue ampicillin 2 g IV every 4 hours and ceftriaxone 2 g IV every 12 hours, tentative end date March 18, 2024 Please obtain CBC, differential, hepatic panel, renal panel every Wednesday and send results to fax number [phone] Anne Please call Dr. Anne's office for a follow-up appointment in 2-4 weeks, Phone number [phone]. Awaiting PICC line placement. Regards to the patient's retention: Appears to have some symptoms of constipation, which is now improved. Will perform voiding trial today. Resume home medications as deemed appropriate. Point of contact: Patient's daughter Stefano: [phone] Above plan of care was discussed with the patient at bedside, all questions answered appropriately. This is a note transcribed by me, the attending physician on service using the '[employer]' dictation software. Please excuse any grammatical errors, repetitions/duplications if any are present in the entirety of this note. Thank you. Anticipated Date of Discharge Patient can be discharged once PICC line is placed for IV antibiotics and when pre-CERT is obtained. Digitally Signed by DRE PHIPPS MD on 02/11/2024 11:42 AM [facility] HospitalRnuhnpfa09-90-9848 Note Patient's cervical spine is contracted and follow commands poorly. Procedure can not be done safelyas ordered. Consider CT imaging for valve evaluation Digitally Signed by PIO DONAHUE MD on 02/09/2024 11:45 AM [facility] HospitalCdirnsvg94-11-4762 Infectious disease Progress note Date of Service [...] 2/2 -F Enterococcus faecalis 01/31 Blood Cultures 2/ -F Enterococcus faecalis 02/01 Blood Cultures 2 -F Enterococcus faecalis 02/02 Blood Cultures 08/09 [...] Lima Vital RN on 02/09/2024 10:08 AM [facility] HospitalXzvozurj65-84-3822 Note. MICRO - Microbiology PROCEDURE: Blood Culture [...] Locations *1: This test was performed at: [address], [address] [place] [address] ([place])02-09-2024 Note. MICRO - Microbiology PROCEDURE: Blood Culture [...] Locations *1: This test was performed at: [address], [address]- , [facility] ([place])02-09-2024 Cardiology Progress note Date of Service 02/09/2024 [...] mcg tablet 88 mcg 1 tab(s), Oral, Mon//Wed//Wed levothyroxine 88 mcg tablet 88 mcg 1 [...] ALIA MCCORMACK MD on 02/09/2024 09:54 PM [facility] HospitalDfroslie94-54-9960 Note* Exam Date Time Procedure Performing Provider Status 02/09/24 11:48 AM Transesophageal Echo cardiogram - CV Auth (Verified) [facility] 07-03-2024 Note Patient's cervical spine is contracted and follow commands poorly. Procedure can not be done safelyas ordered. 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, diffuse ecchymosis INCISIONS/DRESSINGS: None EXTREMITIES: +1 BLE/pedal [...] Lima Vital RN on 02/09/2024 10:08 AM [facility] HospitalYtmnlgdy30-47-3696 Cardiology Progress note Date of Service 02/08/2024 [...] ALIA MCCORMACK MD on 02/08/2024 10:57 PM [facility] HospitalRyfrqvqk07-93-9707 Infectious disease Progress note Date of Service [...] in overall coloring, 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 ID has been following for E faecalis bacteremia. High-grade E faecalis bacteremia. Repeat blood cultures on 02/05 show no growth to date. TTE shows small mobile echodensity on AV valve measuring 3 to [address] of the abdomen/pelvis negative for acute findings. No fever or leukocytosis. Plan Await SALAAZR. Continue ceftriaxone, ampicillin. Will likely need 6 [...] by JANAY SINHA on 02/07/2024 08:29 PM [facility] HospitalZbtoqqji11-35-8139 Palliative care Progress note Date of Service [...] GERD, and hypothyroidism. [facility] SALAZAR done. [...] to want palliative care she would need [facility] palliative care and hospice team as she lives outside of our jurisdiction. CODE STATUS confirmed patient's CODE STATUS is a DNR CCA DNI. Advanced directives patient expresses that she has a healthcare power of city attorney she is named her daughter Stefano. [...] MARIA ESTHER ALBRIGHT on 02/07/2024 10:39 AM [facility] HospitalMfgdlsku90-44-2408 Note. MICRO - Microbiology PROCEDURE: Blood Culture (bacterial) [*1] SOURCE: Blood BODY SITE: COLLECTED DATE/TIME: 02/03/2024 05:50 EDT RECEIVED DATE/TIME: 02/03/2024 15:21 EDT START DATE/TIME: 02/03/2024 15:21 EDT FREE TEXT SOURCE: FINAL REPORTS Final Report [] Verified Date/Time/Personnel: 02/06/2024 10:55 EDT Enterococcus faecalis Isolated from anaerobe bottle only. Refer to previous culture for susceptibility. [id number] PRELIMINARY REPORTS Preliminary Report [] Verified Date/Time/Personnel: 02/03/2024 15:59 EDT Culture has been received in lab and is no growth to date. Routine cultures are held for 5 days. STAINS GSANA [] Verified Date/Time/Personnel: 02/05/2024 07:33 EDT Gram Positive Cocci in pairs Performing Locations *1: This test was performed at: [facility], [address] [place] [address], [facility] , [facility], [facility] ([place])02-05-2024 Infectious disease Consult note Date of Service [...] answered, she was comfortable in bed having community health Review of Systems Fatigue at times otherwise [...] ANNE BA, MD on 02/05/2024 05:13 PM [id number] Palliative care Consult note Date of Service [...] with the patient. She was transferred from [place] for further evaluationfor bacteremia, and consideration of [...] that she has a healthcare power of city attorney she is named her daughter Stefano. [...] MARIA ESTHER ALBRIGHT on 02/05/2024 02:14 PM [facility] [id number] Evaluation + Plan noteExtracted from: Title:History and Physical Author:DANIEL OBRIEN MD Date:02/05/24 Bacteremia. 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 Nuha Curtis MD [facility] Messenger guille or Pager [phone] Problem List/Past Medical History Ongoing Acquired hypothyroidism [...] PRN levothyroxine, 88 mcg= 1 tab(s), Oral, Mon//Wed//Wed melatonin, 3 mg= 1 tab(s), Oral, qHS, [...] CANDIDA CURTIS MD on 02/05/2024 01:36 PM [facility] [id number] History and physical note Date of Service [...] pain, abdominal pain. She was admitted to [facility] On 02/01/2024. Prior to that, she [...] self only. Believes that she is in [place] and the year is 2012. Abd: Not [...] Continue ampicillin Consult cardiology for reevaluation for SALAZRA Urinary retention. She has been requiring intermittent [...] NIGHAT OBRIEN MD on 02/05/2024 03:06 AM [facility] [id number] Note Discharge Instructions Thank you for allowing [facility] to assist you with your healthcare needs. The following is importantdischarge information regarding your hospital visit. Your Care Team ESTER BEJARANO MSN, OFFAL ROLLER Your Diagnosis Bacteremia Hypertension Takotsubo cardiomyopathy Weakness What to do next Scheduled Follow-Up Appointments Appointment Type When Where Contact Information StatusEcho - Echocardiogram Adult 08/21/2024 11:00 AM [facility] Radiology [phone] Confirmed CV OV 09/21/2024 01:15 PM [facility] [place] Confirmed Follow Up Appointments Follow Up with BROOKS OSUNA When:01/10/2024 09:30 AM EDT Where:[address] [address]- Additional Information: This is your post-hospital cardiology [...] to receive it can visit one of [facility] vaccine clinics. There are many vaccine clinic locations within the [facility]. For locations and available times, please visit [email or web address].[email or web address] It is important to note that some COVID mobile vaccine clinics are held outdoors and may be canceled in rainy or stormy conditions. To learn more about pediatric vaccinations (ages 5-11), we invite you to visit the [facility] webpage. https://www.[email or web address].org/pages/[email or web address]-Xdndr-Ryacdavvfie-Vrnvimwhkc-Pkldw-Cyd stions.htmlTo learn more about the COVID-19 vaccine, we invite you to visit the CDC website for a list of frequently asked questions.https://www.cdc.gov/coronavirus/2019-ncov/vaccines/faq.html [facility] Patient Portal Access Instructions: Stay connected with your healthcare team and access your personal medical information anytime with the [facility] Patient Portal. Please follow the directions below to create your [facility] account: 1.Access the email account you provided upon registration to the hospital/physician office.2.Look for an invitation email from [facility].3.Open the email and access the invitation link: AcceptInvitation to [facility].4.Fill in the required martinez to create your account. To access your account, visit [email or web address]OneChart. Click the blue button labeled "Access Patient [...] who you will allowto register on the [facility] Patient Portal for access to your information. You can also access the [facility] Patient Portal on the [facility] guille. Simply click on "Patient Portal" and then log into your account. If you would like to receive a full copy of your medical records, please contact the [facility] Medical Records Department by calling [phone], Wednesday through Wednesday between 8 a.m. and [...] Call your local pharmacy or go to http://bit.ly/8Q7Sa4o to find one close to you.3.Make use of household items: Use cat litter or old coffee grounds to dispose medications if other options arenot available. Mix your drugs with these household products, seal them in an airtight container andthrow it into the garbage. Call [facility]: [phone] to be sure your drugs can be [...] aware that I should contact my doctor. 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 Patient is now agreeable to transfer to another facility for SALAZAR and possible ID consult. Family requests that [facility] be called first. [facility] states no beds today at all and does not offer optionof going on a list. Family is agreeable to transfer to [facility] but there is quite a wait therealso. [...] culture from [facility] grew actinomyces naeslundii. She was treated with [...] requiring transition to inpatient due to bacteremia. Patient accepted by [facility] and has precert good through 02/07. Continue PT and OT while here. 4. Takotsubo cardiomyopathy Found during recent heart cath at [facility]. She was started on Coreg 3.125 mg [...] by KUMAR JAMES on 02/04/2024 03:24 PM [facility] [id number] Note. MICRO - Microbiology PROCEDURE: Blood Culture (bacterial) [*1] SOURCE: Blood BODY SITE: COLLECTED DATE/TIME: 02/02/2024 06:25 EDT RECEIVED DATE/TIME: 02/02/2024 17:02 EDT START DATE/TIME: 02/02/2024 17:02 EDT FREE TEXT SOURCE: FINAL REPORTS Final Report [] Verified Date/Time/Personnel: 02/04/2024 11:35 EDT Enterococcus faecalis Isolated from aerobe bottle only. Refer to previous culture for susceptibility. [id number] collected 01-31-24 PRELIMINARY REPORTS Preliminary Report [] [...] Locations *1: This test was performed at: [facility], [address] [place] [address], [facility] , [facility] ([place])02-03-2024 Note Date of Service 02/03/2024 Chief Complaint [...] culture from [facility] grew actinomyces naeslundii.She was treated with cefdinir. [...] to inpatient due to bacteremia.Patient accepted by [facility] and has precert good through 02/07. Continue PT and OT while here. 4. Takotsubo cardiomyopathy Found during recent heart cath at [facility]. DVT prophylaxiis with Lovenox. Code status: DNRCCA [...] by KUMAR JAMES on 02/03/2024 04:05 PM [facility]06-27-2024 Note. MICRO - Microbiology PROCEDURE: Blood Culture (bacterial) [*1] SOURCE: Blood BODY SITE: Arm L COLLECTED DATE/TIME: 02/01/2024 05:34 EDT RECEIVED DATE/TIME: 02/01/2024 14:42 EDT START DATE/TIME: 02/01/2024 14:42 EDT FREE TEXT SOURCE: FINAL REPORTS Final Report [] Verified Date/Time/Personnel: 02/03/2024 11:26 EDT Enterococcus faecalis Isolated from aerobe and anaerobe bottles. Refer to previous culture for susceptibility. [id number] collected 01-31-24 PRELIMINARY REPORTS Preliminary Report [] Verified Date/Time/Personnel: 02/02/2024 09:02 EDT Enterococcus faecalis Isolated from aerobe and anaerobe bottles. Refer to previous culture for susceptibility. [id number] collected 01-31-24 Final report to follow. Preliminary [...] Locations *1: This test was performed at: [address], [facility] , [facility] ([place])02-03-2024 Note. MICRO - Microbiology PROCEDURE: Blood Culture (bacterial) [*1] SOURCE: Blood BODY SITE: Arm R COLLECTED DATE/TIME: 02/01/2024 05:34 EDT RECEIVED DATE/TIME: 02/01/2024 14:42 EDT START DATE/TIME: 02/01/2024 14:42 EDT FREE TEXT SOURCE: FINAL REPORTS Final Report [] Verified Date/Time/Personnel: 02/03/2024 11:25 EDT Enterococcus faecalis Isolated from aerobe and anaerobe bottles. Refer to previous culture for susceptibility. [id number] Collected 01-31-24 PRELIMINARY REPORTS Preliminary Report [] [...] Locations *1: This test was performed at: [facility], [address] [place] [address], [id number]- , [facility] ([place])02-02-2024 Note ORIGINAL EXAMINATION: CT OF THE ABDOMEN [...] Sign Date: 02/02/2024 5:34:24 PM Ordering Provider: [facility]06-26-2024 Note Date of Service 02/02/2024 Chief [...] culture from [facility] grew actinomyces naeslundii. She was treated with [...] to inpatient due to bacteremia.Patient accepted by [facility] and has precert good through 02/07. 4. Takotsubo cardiomyopathy Found during recent heart cath at [facility]. DVT prophylaxiis with Lovenox. Code status: DNRCCA [...] by KUMAR JAMES on 02/02/2024 03:16 PM [facility]06-26-2024 Note. MICRO - Microbiology PROCEDURE: Blood Culture (bacterial) [*1] SOURCE: Blood BODY SITE: Arm R COLLECTED DATE/TIME: 01/31/2024 01:15 EDT RECEIVED DATE/TIME: 01/31/2024 15:05 EDT START DATE/TIME: 01/31/2024 15:05 EDT FREE TEXT SOURCE: FINAL REPORTS Final Report [] Verified Date/Time/Personnel: 02/02/2024 07:29 EDT Enterococcus faecalis Isolated from aerobe and anaerobe bottles. Refer to previous culture for susceptibility. [id number] PRELIMINARY REPORTS Preliminary Report [] Verified Date/Time/Personnel: [...] Locations *1: This test was performed at: [address], [address] [place], [place] [address]-02-2024 Note. MICRO - Microbiology PROCEDURE: Blood Culture [...] Locations *1: This test was performed at: [address], [address] [place] [address] ([facility]02-01-2024 Hospital Discharge instructions Follow Up Care 02/01/2024 12:18:47 With:BROOKS OSUNA Address: [address] [place] [address]- When:01/10/2024 09:30:00 Comments:This is your post-hospital cardiology appointment. [facility] 06-25-2024 Note Date of Service 02/01/2024 Chief Complaint Bacteremia History of Present Illness 83-year-old female with past medical history significant for HTN, HLD, hypothyroidism, GERD, PE, NSTEMI, Takotsubo cardiomyopathy (01/2024), aortic stenosis. Patient was originally seen at [facility] on 01/20/2024 where she was diagnosed withan NSTEMI. Patient had cardiac catheterization done with no blockages but was notable for Takotsubocardiomyopathy. Echo showed normal LVEF and moderate aortic stenosis. She was treated for a UTI with cefdinir. She was admitted to [facility] TCU. Her progress has been labile. She [...] subsequently discharged from TCU and admitted to [facility] inpatient. On exam today, pt denies any [...] culture from [facility] grew actinomyces naeslundii. She was treated with [...] by STEFANO GRAHAM on 02/01/2024 02:01 PM [facility]06-25-2024 Note* Exam Date Time Procedure Performing Provider Status 02/01/24 2:01 PM Echocardiogram, Adult - CV Auth (Verified) [facility] 06-25-2024 Evaluation + Plan noteExtracted from: Title:History and Physical Author:STEFANO GRAHAM Date:02/01/24 1. Bacteremia 2. Hypertension 3. Weakness Bacteremia unclear source of infection. Blood cultures grew Enterococcus faecalis. Start ampicillin 2 g every 4 hours x 7 days. Stop date 02/08/2024. Urinalysis that was collected was negative. Urine culture from [facility] grew actinomyces naeslundii. She was treated with [...] Scheduled Provider: Location:[facility] Appointment Type:CV OV [facility] 06-24-2024 Note Date of Service 01/31/2024 Chief Complaint Asthenia Subjective 83-year-old female with past medical history significant for HTN, HLD, hypothyroidism, GERD, PE, NSTEMI, Takotsubo cardiomyopathy (01/2024), aortic stenosis. Patient was originally seen at [facility] on 01/20/2024 for increasing weakness. [...] for SNF. She was subsequently admitted to [facility]. Initially patient was struggling with progressing [...] may include grammatical and/or spelling errors. CPT: 62244 Anticipated Date of Discharge Within 5 days Time Spent 20 minutes Digitally Signed by STEFANO GRAHAM on 01/31/2024 03:23 PM [facility]06-24-2024 Nurse Progress note pt refusing 2 am labs at this time. supervisor ovens aware and will attempt to collect later in am. Digitally Signed by MICH Squires on 01/31/2024 03:19 AM [facility]06-24-2024 Note ORIGINAL EXAMINATION: TWO XRAY VIEWS OF [...] Date: 01/31/2024 12:50:22 AM Ordering Provider: MALGORZATA [facility]06-22-2024 Nurse Progress note Pt has not voided since beginning of shift and has attempt to go on bedpan twice. Bladder scan doneshowing 593mL. Pt straight cathed per standing order and 400mL emptied from bladder. Urine clear and yellow. REBECCA Olivas notified. Pt denies discomfort other than "usual arthritis". PRN tylenol administered. Digitally Signed by Allison Angela RN on 01/29/2024 02:54 PM [facility]06-22-2024 Nurse Progress note Therapy reported pt leaning [...] Allison Angela RN on 01/29/2024 01:40 PM [facility]06-21-2024 Note Date of Service 01/28/2024 Chief Complaint Asthenia Subjective 83-year-old female with past medical history significant for HTN, HLD, hypothyroidism, GERD, PE, NSTEMI, Takotsubo cardiomyopathy (01/2024), aortic stenosis. Patient was originally seen at [facility] on 01/20/2024 for increasing weakness. [...] for SNF. She was subsequently admitted to [facility]. Initially patient was struggling with progressing [...] may include grammatical and/or spelling errors. CPT: 28179 Anticipated Date of Discharge 02/03 Time Spent 20 minutes Digitally Signed by STEFANO GRAHAM on 01/28/2024 12:03 PM [facility]06-16-2024 Evaluation + Plan noteExtracted from: Title:History and Physical Author:KUMAR JAMES Date:01/23/24 1. Asthenia Consult placed to PT and OT to evaluate and treat - following. manager support services following for discharge planning needs. 2. [...] collaborating with physician, and documenting in chart. CPT#12426 Future Appointments Appointment Date:08/21/2024 11:00:00 AM Scheduled Provider: Location:[facility] Appointment Type:Echo - Echocardiogram Adult Appointment Date:09/21/2024 01:15:00 PM Scheduled Provider: Location:[facility] Appointment Type:CV OV [facility] 06-16-2024 Note Date of Service 01/23/2024 Chief Complaint weakness History of Present Illness Patient is an 83-year-old female, who follows with Ester SÁNCHEZ with a past medical history significant for hypertension, hypothyroidism, hiatal hernia and GERD, presents to [facility] transitional care program for rehab before returning home. Patient was admitted to [facility] on 01/19 due to increased weakness at home. Patient was just in the TCU here at [facility] from 11/26-12/10 for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 222-116304-19-2024 [address] [facility] November 26, 2023 1:49pm Note Date/Time November 26, 2023 1:4 7pm [facility] Medical Records Department [address] [place] [address] Transfer to [facility] MR#: [id number] Acct: [id number] Name: STEFANO WASHINGTON Rep #:[id number] : 1940 83 From: Kelby saldaña DO PCP: Dr. Carl Encarnacion MD Status:ADM IN Certification of patient admission REQUIRED AT TIME OF ADMISSION. I CERTIFY THAT POST-HOSPITAL ECF SERVICES ARE REQUIRED TO BE GIVEN ON AN IN-PATIENT BASIS BECAUSE OF THE ABOVE NAMED PATIENT'S NEED FOR PRISON CARE ON A CONTINUING BASIS FOR THE [...] Patient is an 83-year-old female who presented [facility] ED on 11/23/2023 after a [...] in before D/C Order can be placed): Correction Facility 11/26/23 1349 <Electronically signed by Kelby Aguilar DO> Cosigner Signature (if applicable): CC: Dr. Carl Encarnacion MD ~ [facility] Work Phone: 1(139) 634-557904-19-2024 Progress note Author Kelby Aguilar [facility] November 26, 2023 11:44am Note Date/Time November 26, 2023 11: 44am [facility] Medical Records Department [address] [place] [address] [place] [address] Progress Note - Hospitalist 11/26/23 1141 MR#: [id number] Acct: [id number] Name: STEFANO WASHINGTON Rep #:[id number] : 1940 83 From: Kelby saldaña DO PCP: Dr. Carl Encarnacion MD Status:ADM IN Location: [facility] PG946-1 Reason for Visit Reason for Visit: Diagnoses [...] concerns this morning. Had been told by shelter case manager that [facility] rehab had accepted her and [...] Patient is an 83-year-old female who presented [facility] ED on 11/23/2023 after a [...] following. Accepted to an hospital rehab at [facility], awaiting bed placement. Medically stable for discharge [...] 35 minutes. Charges/Coding Visit Charges Inpatient E&M: 35079 Subs Hosp L2 11/26/23 1144 <Electronically signed by Kelby Aguilar DO> Cosigner Signature (if applicable): CC: ~ Signed [facility] Work Phone: 1(825) 362-166704-18-2024 Progress note Author Kelby Aguilar [facility] November 25, 2023 2:47pm Note Date/Time November 25, 2023 12: 24pm [facility] Medical Records Department [facility] [place] [address] [address] Progress Note - Hospitalist 11/25/23 1224 MR#: [id number] Acct: [id number] Name: STEFANO WASHINGTON Rep #:[id number] : 1940 83 From: Kelby Betsy saldaña DO PCP: Dr. Carl Encarnacion MD Status:ADM IN Location: [place] [address] Reason for Visit Reason for Visit: Diagnoses Rhabdomyolysis (11/23/23) Urinary tract infection, site not specified (11/23/23) Weakness (11/23/23) Unspecified fall, initial encounter (11/23/23) Subjective Subjective No acute events overnight. Patient seen at bedside this morning, shelter case manager also present at bedside. Patient had fairly poor therapy scores yesterday and recommendation was for SNF on discharge. Unfortunately, shelter case manager told patient and family this morning that TCU was not able to accept her. Patient and family were okay with referrals being sent to [facility] in-hospital rehab facilities instead. Patient states that [...] Patient is an 83-year-old female who presented [facility] ED on 11/23/2023 after a [...] patientwould be a better candidate for a long term facility on discharge as opposed to home health care. TCU not able to accept patient, referrals sent to [place] in [place] and hospital rehab facilities and are pending. [...] 35 minutes. Charges/Coding Visit Charges Inpatient E&M: 19395 Subs Hosp L2 11/25/23 1447 <Electronically signed by Kelby Aguilar DO> Cosigner Signature (if applicable): CC: ~ Signed [facility] Work Phone: 1(729) 814-687104-17-2024 Progress note Author [facility] November 24, 2023 3:43pm Note Date/Time November 24, 2023 10: 18am [facility] Medical Records Department [address] [place] [address] Progress Note - Hospitalist 11/24/23 1018 MR#: [id number] Acct: [id number] Name: STEFANO WASHINGTON Rep #:[id number] : 1940 83 From: Kelby saldaña DO PCP: Dr. Carl Encarnacion MD Status:ADM IN Location: [place] [id number] Reason for Visit Reason for Visit: Diagnoses [...] Clear Calc 48.91, Est GFR (MDRD) Af [id number], Est GFR (MDRD) Non-Af 105, BUN/Creatinine Ratio [...] Patient is an 83-year-old female who presented [facility] ED on 11/23/2023 after a [...] would be a better candidate for a long term facility on discharge as opposed to home [...] 35 minutes. Charges/Coding Visit Charges Inpatient E&M: 59859 Subs Hosp L2 11/24/23 1545 <Electronically signed by Kelby Aguilar DO> Cosigner Signature (if applicable): CC: ~ Signed [facility] Work Phone: 1(633) 838-604004-17-2024 [facility] History of Present illness Narrative* Keily Rico MA - 11/24/2023 3:20 PM EDT Scan on 11/23/2023 2:46 PM by Provider, External, PA-C: Consultation - Emergency Medicine Scan on 11/23/2023 3:47 PM by Provider, External, PA-C: Consultation - Emergency Medicine Patient admitted 11/23/2023 Keily Rico MA documented in this encounterAshtabula County Medical Center04-16-2024 Discharge summary Author Smith Ho [facility] November 23, 2023 3:37pm Note Date/Time November 23, 2023 8:4 2am [facility] Medical Records Department [address] [place], [place] [address] [address] Emergency Department Summary 11/23/23 MR#: [id number] Acct: [id number] Name: STEFANO WASHINGTON Rep #:[id number] : 1940 83 From: Smith Ho MD PCP: Dr. Carl Encarnacion MD Status:ADM IN Location: [address] History of Present Illness Chief Complaint: [...] No shortening or rotation. 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 She is able to [...] 77.0 H Lymph % (Auto) 12.9 L Ida % (Auto) 9.0 Eos % (Auto) 0.1 [...] Clarity Cloudy Urine pH 6.0 Ur Specific Sparks 1.010 Urine Protein 30 H Urine Glucose [...] Signed: Sixto Leija MD at 9:05 EDT Reading Location ID and State: [address] [place] [address] , Service support , Chest x-ray shows a portable film [...] rhythm rate 100 no acute signs of PA or ischemia. Right bundle branch block. Discharge Plan Dx/Rx/DC Orders Clinical Impression: Urinary tract infection, Generalized weakness, Rhabdomyolysis, Fall Disposition Disposition: Acute Care Hospital [facility] What to do if you have Problems For any increased pain, shortness of breath, bleeding, nausea or vomiting, chestpain, or any unexpected problems, contact your Primary Care Provider. Call [facility] ([phone]) or report to the closest Emergency Room. Call 911 if necessary. 11/23/23 1537 <Electronically signed by Smith Ho MD> Cosigner Signature (if applicable): CC: Dr. Carl Encarnacion MD ~ Signed [facility] Work Phone: 1(306) 878-240504-16-2024 History and physical note Author Kelby Aguilar [facility] November 23, 2023 2:36pm Note Date/Time November 23, 2023 11: 38am [facility] Medical Records Department [address] [place] [address] H&P Exam - Hospitalist 11/23/23 1137 MR#: [id number] Acct: [id number] Name: SETFANO WASHINGTON Rep #:[id number] : 1940 83 From: Kelby saldaña DO PCP: Dr. Carl Encarnacion MD Status:ADM IN Location: [facility] [id number] HPI - General General Date of Admission: 11/23/23 Date of Service: 11/23/23 Chief Complaint: Fall with weakness HPI Narrative STEFANO WASHINGTON, is a 83 F who presented to [facility] ED on 11/23/2023 after a [...] previously had a bad experience at another [place] [facility] and significantly prefers to go to the TCU on discharge if needed. In the ED, patient was found to have a creatinine kinase level of 2446. Kidney function was at baseline. CBC and BMP were otherwise benign. Chest x-ray was nonacute. UA was infectious appearing. Given her acute debility, rhabdomyolysis and concern for UTI, patient was admitted for further management. [facility] Medical History (Updated 11/23/23 @ 12:59 by [...] 77.0 H, Lymph % (Auto) 12.9 L, Ida % (Auto) 9.0, Eos % (Auto) 0.1, [...] Clarity Cloudy, Urine pH 6.0, Ur Specific Sparks 1.010, Urine Protein 30 H, Urine Glucose [...] Signed: Sixto Leija MD at 9:05 EDT Reading Location ID and State: [address] [place] [address] , Service support , Assessment & Plan Assessment/Plan (1) Fall: (2) Rhabdomyolysis: (3) Generalized weakness: (4) Urinary tract infection: PLAN: Plan Patient is an 83-year-old female who presented [facility] ED on 11/23/2023 after a fall at home and being down for several hours after that due to weakness. 1. Mechanical fall, acute on chronic debility ? Admit under inpatient status to [facility]. PT/OT/case management consulted. Lives at home [...] 35 minutes. Charges/Coding Visit Charges Inpatient E&M: 16752 Init Hosp L2 11/23/23 1436 <Electronically signed by Kelby Aguilar DO> Cosigner Signature (if applicable): CC: Dr. Kelby Aguilar DO; Dr. Carl Encarnacion MD~ Signed [facility] Work Phone: 1(191) 386-192602-29-2024 Miscellaneous Notes* Telephone Encounter - Kristen Eugene [...] Thank you. Linn Estrada. documented in this encounterAshtabula County Medical Center02-01-2024 Note* Exam Date Time Procedure Performing Provider Status 09/09/23 12:44 PM Echocardiogram, Adult ([facility]OH) Auth (Verified) [facility] 01-10-2024 NoteOhio[facility]12-18-2023 History of Present illness Narrative* Prosper [...] Castillo. Does not want to return to [place]. Does not want to take anything that may impact her blood counts. Not interested in PARP inhibitor. Declines labs and scans. Will continue to follow with Dr. Encarnacion, next appt scheduled 08/18/2023. Following with cardiology at [facility]. She reports that she is feeling well. [...] - follow up as needed. Prosper Amador APRN.FOOD PREPARER Portions of this note including HPI, ROS, impression/plan may have been copied forward as to provide important historical information essential in contributing to medical decision making. Documentation has been reviewed and edited as necessary to support clinical decision making for today's visit and to reflect my own independent evaluation of this patient. documented in this encounterAshtabula County Medical Center12-18-2023 NoteOhio[facility]12-08-2023 Miscellaneous Notes* Telephone Encounter - Amanda [...] appointments canceled as requested documented in this encounterAshtabula County Medical Center12-04-2023 Miscellaneous Notes* Telephone Encounter - Izzy Duarte LPN - 07/12/2023 2:11 PM EST Daughter notified and wants to make sure she does not have any problems with the next prescription. Called the [facility] and spoke with the pharmacist. [...] review. Izzy Duarte LPN documented in this encounterAshtabula County Medical Center11-29-2023 NoteOhio[facility]11-29-2023 History of Present illness Narrative* Wilmar [...] Abs Lymph 1.00 - 4.00 k/uL 1.82 Ida% % 6.8 Abs Ida <0.87 k/uL 0.21 Eosin% % 1.6 Abs [...] is frail and would unlikely have tolerated pechanga doublet. -Symptomatically tolerating carboplatin very well. -Reviewed [...] which included preparing to see the patient, [id number] patient care, completing clinical documentation, obtaining and/or reviewing separately obtained history, performing a medically appropriate examination, counseling and educating the pat ient/family/caregiver, ordering medications, tests, or procedures, communicating with other HCPs (not separately reported), and communicating results to the patient/family/caregiver. Wilmar Forbes DO documented in this encounterAshtabula County Medical Center11-09-2023 Miscellaneous Notes* Telephone Encounter - [...] protocol. Korin Mantilla RN documented in this encounterAshtabula County Medical Center11-03-2023 Miscellaneous Notes* Telephone Encounter - [...] notify patient. Stephanie Estrada documented in this encounterAshtabula County Medical Center11-03-2023 Miscellaneous Notes* Telephone Encounter - [...] protocol. Korin Mantilla RN documented in this encounterAshtabula County Medical Center10-30-2023 Miscellaneous Notes* Telephone Encounter - [...] call in. Stefano Estrada documented in this encounterAshtabula County Medical Center10-30-2023 Miscellaneous Notes* Telephone Encounter - Angeline Shaikh - 06/07/2023 4:32 PM EDT Chemo scheduled and daughter aware of first treatment date/time. Angeline Shaikh * Telephone Encounter - Korin Mantilla RN - 06/04/2023 11:00 AM EDT PSS- completed chemo edu today. Daughter Celina aware our office will contact her with C1D1 chemo schedule. Celina stated understanding. Korin Mnatilla RN * Telephone Encounter - Angeline Shaikh - 06/02/2023 3:26 PM EDT Check out comments: Labs today. - COMPLETED Chemo teaching. - SCHEDULED Start Carbo when able. CBC/CMP/Mag/CA 125/OV with cycles 2 & 3. Do not schedule chemo until office note is signed for authorization purposes. Angeline Shaikh documented in this encounterAshtabula County Medical Center10-30-2023 Miscellaneous Notes* Telephone Encounter - [...] you. Korin Mantilla RN documented in this encounterAshtabula County Medical Center10-27-2023 NoteHNO ID: [id number] Author: Korin Mantilla RN Service: ? Author Type: Registered Nurse Type: Progress Notes Filed: 06/04/2023 1:18 PM Note Text: This visit was completed via telephone. Korin Mantilla RNOhiohealth Pickerington [facility]10-27-2023 History of Present illness Narrative* Korin [...] Mantilla RN - 06/04/2023 1:14 PM EDT Boiling Off Winder Pre Chemo Patient identified by name and date of . YES Confirmed date and time for chemotherapy ? YES Other appointments (labs, imaging) discussed? YES Discussed where to park (campus security officer), charge for parking YES Discussed where to [...] needed: Korin Mantilla RN documented in this encounterAshtabula County Medical Center10-27-2023 NoteOhio[facility]10-27-2023 NoteOhio[facility]10-25-2023 Miscellaneous Notes * Telephone Encounter - Korin Mantilla RN - 06/02/2023 3:16 PM EDT Met with patient and introduced myself. Patient was given a My Journey binder with chemocare information, office contact information, thermometer, and additional chemotherapy resource booklets. Patient aware this nurse will review on scheduled appointment date. Korin Mantilla RN documented in this encounterAshtabula County Medical Center10-25-2023 History of Present illness Narrative* Wilmar Forbes, DO - 06/02/2023 2:00 PM EDT Patient [...] (97.9 F), weight 73.5 kg (162 lb), [id number] %. Somewhat frail-appearing and in no acute [...] she would be able to tolerate a pechanga doublet. -I discussed the logistics, potential risks [...] which included preparing to see the patient, [id number] patient care, completing clinical documentation, obtaining and/or reviewing separately obtained history, performing a medically appropriate examination, counseling and educating the pat ient/family/caregiver, ordering medications, tests, or procedures, and communicating results to thepatient/family/caregiver. Wilmar Forbes DO documented in this encounterAshtabula County Medical Center10-25-2023 NoteOhio[facility]10-23-2023 NoteOhio[facility]10-23-2023 History of Present illness Narrative* Carl Encarnacion MD - 05/31/2023 8:50 AM EDT Patient's home health 485 form / care plan for certification period 05/12/2023 to 07/10/2023 reviewedand signed. Relevant medical records were reviewed. Changes were communicated to home health agency documented in this encounterAshtabula County Medical Center10-09-2023 NoteOhio[facility]10-05-2023 Miscellaneous Notes* Telephone Encounter - Carl Encarnacion MD - 05/13/2023 4:57 PM EDT Noted. * Telephone Encounter - Angeline Robbins RN - 05/13/2023 11:34 AM EDT Kumar calling from [facility] to report plan of care for patient and long term willvisit patient 1 time a week for 2 weeks, 2 times a week for 2 weeks and 1 time a week for 3 weeks. alf will work with patient on teaching about chemotherapy and medication safety. Kumar also notes that patient has an order for Tramadol 50 mg twice a day. Patient was taking 100 mgonce a day. Kumar had explained to patient the importance of taking medication as prescribed. Angeline Robbins RN documented in this encounterAshtabula County Medical Center09-25-2023 History of Present illness Narrative* Eliot Castillo MD - 05/03/2023 4:45 PM EDT Gynecologic Oncology [facility] Postop Re: Stefano Washington CCF#: [id number] Date of Service: 05/03/2023 Dr. Jacky Graves [...] vaginal cuff. Bimanual exam reveals no tenderness. Local Area Network Systems Adminstrator offered: Patient accepts, visit chaperoned by Tuyet [...] can receive treatment with Dr Forbes in [place] and return here after completion of chemotherapy. Her preop CA125 was elevated to 11 1 so she can follow this to monitor her response. Patient expressed understanding and agreement with the plan. Consult placed to Hem/Onc. ATTESTATION: By signing my name below, I, Crista Cope, attest that this documentation has been prepared under the direction and in the presence of Eliot Castillo MD. Electronically signed: Crista PriscaMatilda, May 03, 2023 3:36 PM Provider Attestation: I, Eliot Castillo MD, personally performed the services described in this documentation. All medicalrecord entries made by the scribe were at my direction and in my [...] necessary changes were made. documented in this encounterAshtabula County Medical Center09-25-2023 NoteHNO ID: [id number] Author: Eliot Castillo MD Service: ? Author Type: Physician Type: Progress Notes Filed: 05/04/2023 4:46 AM Note Text: Gynecologic Oncology [facility] Postop Re: Stefano Washington CCF#: [id number] Date of Service: 05/03/2023 Dr. Jacky Graves [...] Benign fibroadipose tissue. Diagnosis Comment Dr. Nicole Mhaer review (more content not included)...[facility] [id number] Miscellaneous Notes* Telephone Encounter - Carl Encarnacion [...] advise. Baltazar Bazzi LPN documented in this encounterAshtabula County Medical Center09-06-2023 NoteOhio[facility]09-05-2023 NoteOhio[facility]09-04-2023 NoteOhio[facility]09-03-2023 NoteOhio[facility]09-02-2023 Note [facility]09-02-2023 NoteOhio[facility]09-02-2023 NoteOhio[facility]09-01-2023 NoteOhio[facility] 04-09-2023 Miscellaneous Notes* Telephone Encounter - Tamiko Ramirez LPN - 04/09/2023 3:08 PM EDT Keisha from [facility] Home Health returned call and family declined Home Health, family wants patient to goto TCU or Rehab. Casemanfawad at [facility] will have to work on this case. * Telephone Encounter - Maru Loya Cma - 04/09/2023 2:24 PM EDT Left message for Keisha to return call to office Maru Loya Cma * Telephone Encounter - Annmarie Tucker APRN.KACI - 04/09/2023 2:12 PM EDT Please call Keisha and let her know Dr. Encarnacion will follow. * Telephone Encounter - Tamiko Ramirez LPN - 04/09/2023 1:42 PM EDT //Keisha from [facility] Home Health calling patient is currently in [facility] had ovarian mass, discharging sometime over the weekend. They received order for long term, PT/OT. Asking if PCP would follow and sign orders and give verbal order for delay in start of care until 04/13/2023? Aware PCP is out of office this afternoon. Please advise documented in this encounterAshtabula County Medical Center09-01-2023 NoteOhio[facility]08-31-2023 NoteOhio[facility]08-30-2023 NoteOhio[facility]08-30-2023 NoteOhio[facility]08-30-2023 Note [facility]08-30-2023 NoteOhiohealth [facility]08-29-2023 Instructions* Patient Instructions* Ousmane Jones APRN.ROGE CLEMONS - 04/06/2023 3:43 PM EDT PATIENT PREOPERATIVE INSTRUCTIONS No ref. provider found has scheduled you for your procedure at this surgery center: [facility] [place] Scheduling Office: [phone] --[address] [place] [address]. Please read below carefully for your personalized [...] Procedures: - YOU MUST HAVE A RESPONSIBLE DRILL RIG OPERATOR HELPER TAKE YOU HOME. A REINFORCED CONCRETE INSPECTOR OR HI RANGER OPERATOR CANNOT BE MADE A RESPONSIBLE DRILL RIG OPERATOR HELPER. - We recommend that a responsible person [...] call the Wednesday before. Your surgeon s early childhood associate teacher will tell you what time to call the office. - If you have not reached the departmental early childhood associate teacher by 5 P.M., call [phone] after 5 P.M. the day before your surgery. Please be aware that emergency situations arise, which may delay or change your surgical time. If this happens, we will notify you as soon as possible and regret any inconvenience. If you already have an Advance Directive, please fax a copy to [phone] or email to for it to be [...] Viviana Jones APRN.CNP, DNP documented in this encounterAshtabula County Medical Center08-29-2023 Miscellaneous Notes* Telephone Encounter - Ousmane Jones APRN.CNP, DNP - 04/06/2023 3:43 PM EDT Preop instruction documented in this encounterAshtabula County Medical Center08-29-2023 History and physical note * Ousmane Jones APRN.CNP, DNP - 04/06/2023 3:00 PM EDT PREANESTHESIA CONSULT CLINIC TELEHEALTH VISIT I have communicated my name and active licensure. The patient's identity and physical location wereverified at the time of this visit. Either the patient or their legal plastic products sales representative has been informed of the risks and benefits of and alternatives to treatment through a remote evaluation and consents to proceed with the evaluation remotely. Patient has been identified by name and date of : Yes This is a virtual visit using FairSoftwaret video visit. It require patient-provider interaction for the medical decision making as documented below. Reason for contact: PACC visit Accompanied by: Self Scheduled Surgery: HYSTERECTOMY ABDOMINAL TOTAL WITH SALPINGO-OOPHORECTOMY BILATERAL with Eliot Castillo MD on 04/07/2023 at [facility]. Subjective CHIEF COMPLAINT: Patient presents with: [...] fevers. Neuro: No history of TIA's, stroke, OFFAL ROLLER tumor, impaired sensorium, hemiplegia, paraplegia or quadraplegia. No neurological symptoms or problems. Respiratory: No history of current cough or dyspnea, or pneumonia in the past 6 weeks. No history of respiratory/pulmonary symptoms or problems. Cardiovascular: Positive for: HLD, Hypertension, on rx, PE on Eliquis 2 years ago during Covid infection, resolved with no reoccurrence, Negative for Recent PA, Angina, Arrhythmia, CAD, Chest Pain, CHF, PVD, Valvular Heart Disease GI: Positive for GERD, Giant hiatal hernia per recent CT abdomen/pelvis on rx, Negative for PUD, Heartburn, Nausea, Vomiting, Abdominal pain, Hepatitis, Liver disease, Inflammatory bowel disease, Colon cancer, Rectal cancer, Diverticulitis, History of polyps : Negative for dysuria, frequency, incontinence, decreased stream, and hematuria, Positive for mild bilateral hydronephrosis per CT abdomen/pelvis ENGAGEMENT SPECIALIST: See HPI :No LMP recorded. Patient is [...] age Abnormal ECG Confirmed by MATT MOREJON, [facility] ([id number]) on 03/22/2023 2:44:01 PM Most [...] this time. Patient has been cleared by [facility] cardiology Desi Madison on 03/26/2023. Please [...] device. I spent more than 0-20 minutes [id number] with the patient and over half the time was devoted to counseling and/or coordination of care. This is a virtual visit. It required patient-provider interaction for the medical decision making as documented above. This document has been created with use of voice recognition technology. It may contain inaccuracies, misspellings, inaccurate syntax or word sense that escaped review. SIGNATURE: Ousmane Jones APRN.ROGE CLEMONS PATIENT NAME: Stefano Washington DATE: April 06, 2023 TIME: 2:42 PM PAGER/CONTACT #: documented in this encounterAshtabula County Medical Center08-16-2023 Miscellaneous Notes* Telephone Encounter - Nanci Calloway - 03/24/2023 2:35 PM EDT Received CC in [facility] but patient will be receiving services elsewhere . documented in this encounterAshtabula County Medical Center08-16-2023 Miscellaneous Notes* Telephone Encounter - nAnmarie Mendoza APRN.CNP - 03/24/2023 2:28 PM EDT Patient's daughter called to report they found a cardiology office closer to home that they would like to go to instead as it is much closer to home. Appointment arranged with Dr.Sharan Ashok Crane Clay Carman [phone] on Monday 03/26 @ 145pm. Will follow up with patient/daughter after appt to determine when surgery can be scheduled. Annmarie Mendoza APRN.KACI documented in this encounterAshtabula County Medical Center08-14-2023 Miscellaneous Notes* Telephone Encounter - [...] Will await call/try again. documented in this encounterAshtabula County Medical Center08-14-2023 Miscellaneous Notes* Telephone Encounter - Tuyet Lorenz RN - 03/22/2023 3:42 PM EDT Spoke with daughter. Patient is scheduled for ECHO tomorrow , in [place]. * Telephone Encounter - Annmarie Mendoza APRN.CNP - 03/22/2023 3:10 PM EDT Please let patient/daughter know her EKG was showing some changes that require an echocardiogram before she can proceed with surgery. The order for the echo has been placed. Can you please help get this scheduled for tomorrow morning, since her surgery is on Wednesday at [facility]. Thanks documented in this encounterAshtabula County Medical Center08-14-2023 History of Present illness Narrative* [...] 22, 2023 1:22 PM documented in this encounterAshtabula County Medical Center08-14-2023 Miscellaneous Notes* Allied Health - Belkis Milton - 03/22/2023 1:00 PM EDT RADIOLOGY SERVICE PROGRESS NOTE DATE OF SERVICE: March 22, 2023 TIME OF SERVICE: 12:34PM EVENT: ARRIVED IN WHEELCHAIR ADDITIONAL EVENT DETAILS: NA SIGNATURE: Belkis Milton PATIENT NAME: Stefano Washington DATE: March 22, 2023 TIME: 12:56 PM PAGER/CONTACT #: documented in this encounterAshtabula County Medical Center08-08-2023 Miscellaneous Notes* Telephone Encounter - Kaye Mchugh RN - 03/16/2023 5:06 PM EDT Called daughter and informed her of appt made. I was told that [facility] is not available for several months.I did schedule patient for [place] and daughter was agreeable because we could get her in with Dr Castillo in about 2 weeks. Phone number given to daughter if they wish to try to get into [facility] [phone] * Telephone Encounter - Ely Rico MD - 03/16/2023 4:18 PM EDT Consult order filed Ely Rico MD * Telephone Encounter - Kaye Mchugh RN - 03/16/2023 3:48 PM EDT I called patient at the request of Dr Rico. Dr Rico has reviewed the patient referral from Dr Encarnacion and believes patient should be seen by foiling machine adjuster/onc. Deanneen tis agreeable. She asked me to call her daughter Stefano Quezada at [phone] to let her know. Patient's daughter is agreeable but states they do not want to go to [facility]. They will go to [facility]. Please file referral and let us know who you recommend in [facility] documented in this encounterAshtabula County Medical Center08-01-2023 History of Present illness Narrative* [...] 2023 TIME: 1:26 PM documented in this encounterAshtabula County Medical Center08-01-2023 NoteOhiohealth [facility]07-03-2023 Miscellaneous Notes* Telephone Encounter - Kristen [...] and advise. Kaye Donahue documented in this encounterAshtabula County Medical Center06-27-2023 NoteOhiohealth Pickerington [facility]06-27-2023 History of Present illness Narrative* [place] [...] Planned: 12 Planned Treatment Interventions: Therapeutic exercise (67096), Neuromuscular re- education (80000), Therapeutic activities (75241), Self-usp management (80603), Patient/Family/Caregiver Education, Gait Training (65630) PLAN FOR NEXT VISIT: Pt. instructed to [...] Treatment Interventions: Therapeutic Exercise, Therapeutic Activity, Self- Group Home Management Evaluation Therapeutic Exercise: 1: *seated scapular [...] program as noted above with an (*). Self-Group Home Management: 1: *instructed pt. to bring her [...] 45 America Camejo PT documented in this encounterAshtabula County Medical Center06-27-2023 Miscellaneous Notes* Telephone Encounter - Jeremiah Puckett LPN - 02/02/2023 11:35 AM EDT Spoke with pt's daughter and advised her of Kristen's message. She verbalizes understanding. She isrequesting to have referral faxed to [facility]. She is going to check with [...] welcomed to get a 2nd opinion from [facility]. We do have pain management in [place] from [facility]. Dr. Cohn and dr. White are private practice options in [place] as well if they would like to [...] appointment would be all the way in [place] and that is too far for patient. Daughter said she is going to take patient to [facility] for her back instead. This staff [...] - 02/02/2023 10:25 AM EDTAddended by: KRISTEN CLIEN on: 02/02/2023 10:25 AM Modules accepted: Orders [...] assist with scheduling. Call daughter Stefano at [phone]. Thank you. * Telephone Encounter - Jeremiah [...] options. Kristen Eugene PA-C documented in this encounterAshtabula [facility] Center06-21-2023 NoteOhio[facility] NoteOhio[facility]06-21-2023 History of Present illness Narrative* Kristen [...] AP/LAT/L5-S1 Kristen Eugene PA-C documented in this encounterAshtabula County Medical Center06-19-2023 Miscellaneous Notes* Telephone Encounter - [...] Quezada calling to verify lab order in [facility] so granddaughter can poultry picking machine tender urine specimen supplies. Please file order and contact daughter when done. # [phone]. Vijaya Bishop RN * Telephone Encounter - Jeremiah Puckett LPN - 01/25/2023 12:15 PM EDT Pt notified of Ecast message and instructions. Pt verbalizes understanding. Pt [...] Have those symptoms improved? documented in this encounterAshtabula County Medical Center06-15-2023 Miscellaneous Notes* Telephone Encounter - Angeline Robbins RN - 01/21/2023 9:39 AM EDT Patient's Grand Daughter called and notified that prescription has been sent to pharmacy. Angeline Robbins RN * Telephone Encounter - Carl Encarnacion MD - 01/21/2023 8:57 AM EDT Let grand daughter know antibiotic sent to [facility]. The following approved medication requests have [...] advise, Angeline Robbins RN documented in this encounterAshtabula County Medical Center06-06-2023 History of Present illness Narrative* Barrera Daley APRN.FOOD PREPARER - 01/12/2023 10:20 AM EDT Patient triaged at [facility]. Here today with 12/10 mid back pain after fall few days ago. Patient in wheel chair, not able to walk well d/t pain. I will refer to ER, concerns with age and severity of pain. documented in this encounterAshtabula County Medical Center03-31-2023 Miscellaneous Notes* Telephone Encounter - Judi Plascencia Pss - 11/06/2022 9:18 AM EDT Pharmacy verified in [facility] Patient has been identified by name [...] advise. Judi Plascencia Pss documented in this encounterAshtabula County Medical Center02-02-2023 Miscellaneous Notes* Telephone Encounter - [...] patient. Stephanie Duarte Pss documented in this encounterAshtabula County Medical Center12-12-2022 Miscellaneous Notes* Telephone Encounter - Amanda Kendrick - 07/20/2022 10:38 AM EST Patient given results and verbalized understanding of instructions given. Amanda Kendrick * Telephone Encounter - Barrera Daley APRN.FOOD PREPARER - 07/20/2022 9:55 AM EST Please notify negative chest xray for pneumonia. Large hiatal hernia noted, no action needed. May stop atb per note. F/u as discussed during visit. documented in this encounterAshtabula County Medical Center12-12-2022 History of Present illness Narrative* Monisha Donahue, RT(R) - 07/20/2022 8:10 AM EST Radiology [...] 20, 2022 8:10 AM documented in this encounterAshtabula County Medical Center12-11-2022 History of Present illness Narrative* Isabel Roca APRN.FOOD PREPARER - 07/19/2022 11:47 AM EST CC: Patient [...] plan. Isabel Roca APRN.KACI documented in this encounterAshtabula County Medical Center11-21-2022 Miscellaneous Notes* Telephone Encounter - [...] reduce fat in diet. documented in this encounterAshtabula County Medical Center11-18-2022 Instructions* Patient Instructions* Carl Encarnacion MD - 06/26/2022 11:03 AM EST Consider getting the shingrix vaccine for the prevention of shingles from a local pharmacy documented in this encounterAshtabula County Medical Center11-18-2022 History of Present illness Narrative* [...] Abs Lymph 1.00 - 4.00 k/uL 1.67 Ida% % 8.5 Abs Ida <0.87 k/uL 0.42 Eosin% % 2.6 Abs [...] Negative Negative Ketones, Urine Negative Negative Specific Spar[place], Ur 1.005 - 1.030 1.006 Hemoglobin/Blood,Ur Negative [...] QUADRIVALENT HIGH DOSE AGE 65+: Given - [employer] COVID-19 BIVALENT BOOSTER VACCINE, AGE 12+ YR: [...] visit. Carl Encarnacion MD documented in this encounterAshtabula County Medical Center11-02-2022 Miscellaneous Notes* Telephone Encounter - [...] and advise. Sherlyn Estrada documented in this encounterAshtabula County Medical Center10-28-2022 Miscellaneous Notes* Telephone Encounter - [...] Thank you. Lorena Silver documented in this encounterAshtabula County Medical Center10-17-2022 Miscellaneous Notes* Telephone Encounter - Carl Encarnacion MD - 05/25/2022 1:10 PM EDT Noted. * Telephone Encounter - Tamiko Ramirez LPN - 05/25/2022 12:53 PM EDT Gina from [facility] calling patient refused overnight pulse ox testing, patient said she returned her oxygen supplies and did not need to have done. documented in this encounterAshtabula County Medical Center10-05-2022 Miscellaneous Notes* Telephone Encounter - [...] - 05/13/2022 10:21 AM EDT Gina with [facility] [place] to ask if provider wants pulse oximetry testing done on RA or with Oxygen? Noted patient is refusing to do testing and returning device on 05/07/2022 to [facility]. Equipment not returned yet. Gina asking if provider would want them to try and do it without oxygen to make sure her levels are WNL if patient is agreeable. Yancy Wetzel, RN documented in this encounterAshtabula County Medical Center09-29-2022 Miscellaneous Notes* Telephone Encounter - Lorena Silver - 05/07/2022 2:39 PM EDT Patient is refusing to schedule procedure at this time. She states she is returning her device. * Telephone Encounter - Keily Rico MA - 05/04/2022 5:02 PM EDT Faxed order to [facility] for Oximetry Nocturnal. Keily Rico MA Please [...] will have her daughter take her to [place] and she will hand them the oxygen equipment she has.Pt states she does not want to be mean but they are trying to pay for the cataract surgery and $8.00 is a lot to her. Please advise pt. Izzy Duarte LPN documented in this encounterAshtabula County Medical Center08-09-2022 Miscellaneous Notes* Telephone Encounter - [...] Please fax order to [employer]- fax # [phone] documented in this encounterAshtabula County Medical Center08-05-2022 Miscellaneous Notes* Telephone Encounter - [...] patient. Stephanie Duarte Pss documented in this encounterAshtabula County Medical Center05-09-2022 Miscellaneous Notes* Telephone Encounter - [...] 40 mg a day? documented in this encounterAshtabula County Medical Center05-06-2022 History of Present illness Narrative* [...] at PIP joint COLONOSCOP W/ OR W/O RUST SPEC 02/14/09 repeat 10 yrs, sigmoid diverticulosis, internal hemorrhoids EGD W/O RUST SPECIMEN W/BX 02/14/09 hiatal hernia, esophagitis, gastritis [...] routine Carl Encarnacion MD documented in this encounterAshtabula County Medical Center04-22-2022 Miscellaneous Notes* Telephone Encounter - YAO Rowell - 11/28/2021 8:33 AM EDT Last [...] notify patient. Stefany Estrada documented in this encounterAshtabula County Medical Center04-11-2022 Miscellaneous Notes* Telephone Encounter - [...] desk. Jeremiah Puckett LPN documented in this encounterAshtabula County Medical Center04-08-2022 Miscellaneous Notes* Telephone Encounter - [...] can not leave home. Melanie works for [employer] sowould collect urine and process that through [employer]. If willing can order be placed and [...] Patient has had frequent UTI's. Asking what PCP/BULL WHEEL WORKER would recommend. Please advise. documented in this encounterAshtabula County Medical Center11-10-2021 History of Past illness Narrative* Problem Noted Date Resolved Date Acute respiratory failure 06/18/20212021 Pain in joint, pelvic region and thigh 3 11/28/2012 Enthesopathy of hip region 10/27/201211/28 Acute gastritis without mention of hemorrhage 12/07/2014 Iron deficiency anemia, unspecified 02/14/2009 05/10/2018 documented as of this encounter (statuses as of 11/14/2021) [facility]11-10-2021 History of Past illness Narrative* Problem Noted Date Resolved Date Acute respiratory failure 06/18/20212021 Pain in joint, pelvic region and thigh 3 11/28/2012 Enthesopathy of hip region 10/27/201211/28 Acute gastritis without mention of hemorrhage 12/07/2014 Iron deficiency anemia, unspecified 02/14/2009 05/10/2018 documented as of this encounter (statuses as of 11/17/2021) [facility]11-10-[facility] of Past illness Narrative* Problem Noted Date Resolved Date Acute respiratory failure 06/18/20212021 Pain in joint, pelvic region and thigh 3 11/28/2012 Enthesopathy of hip region 10/27/201211/28 Acute gastritis without mention of hemorrhage 12/07/2014 Iron deficiency anemia, unspecified 02/14/2009 05/10/2018 documented as of this encounter (statuses as of 11/28/2021) [facility]11[facility]10-[facility] of Past illness Narrative* Problem Noted Date Resolved Date Acute respiratory failure 06/18/20212021 Pain in joint, pelvic region and thigh 3 11/28/2012 Enthesopathy of hip region 10/27/201211/28 Acute gastritis without mention of hemorrhage 12/07/2014 Iron deficiency anemia, unspecified 02/14/2009 05/10/2018 documented as of this encounter (statuses as of 12/13/2021) [facility]11-10-[facility] of Past illness Narrative* Problem Noted Date Resolved Date Acute respiratory failure 06/18/20212021 Pain in joint, pelvic region and thigh 3 11/28/2012 Enthesopathy of hip region 10/27/201211/28 Acute gastritis without mention of hemorrhage 12/07/2014 Iron deficiency anemia, unspecified 02/14/2009 05/10/2018 documented as of this encounter (statuses as of 12/15/2021) [facility]11-10-[facility] of Past illness Narrative* Problem Noted Date Resolved Date Acute respiratory failure 06/18/20212021 Pain in joint, pelvic region and thigh 3 11/28/2012 Enthesopathy of hip region 10/27/201211/28 Acute gastritis without mention of hemorrhage 12/07/2014 Iron deficiency anemia, unspecified 02/14/2009 05/10/2018 documented as of this encounter (statuses as of 03/13/2022) [facility]11[facility]10-[facility] of Past illness Narrative* Problem Noted Date Resolved Date Acute respiratory failure 06/18/20212021 Pain in joint, pelvic region and thigh 3 11/28/2012 Enthesopathy of hip region 10/27/201211/28 Acute gastritis without mention of hemorrhage 12/07/2014 Iron deficiency anemia, unspecified 02/14/2009 05/10/2018 documented as of this encounter (statuses as of 2022) [facility]11[facility]10-[facility] of [facility] illness Narrative* Problem Noted Date Resolved Date Acute respiratory failure 06/18/20212021 Pain in joint, pelvic region and thigh 3 11/28/2012 Enthesopathy of hip region 10/27/201211/28 Acute gastritis without mention of hemorrhage 12/07/2014 Iron deficiency anemia, unspecified 02/14/2009 05/10/2018 documented as of this encounter (statuses as of 05/07/2022) [facility]10[facility] of [facility] illness Narrative* Problem Noted Date Resolved Date Acute respiratory failure 06/18/20212021 Pain in joint, pelvic region and thigh 3 11/28/2012 Enthesopathy of hip region 10/27/201211/28 Acute gastritis without mention of hemorrhage 12/07/2014 Iron deficiency anemia, unspecified 02/14/2009 05/10/2018 documented as of this encounter (statuses as of 05/13/2022) [facility] of [facility] Narrative* Problem Noted Date Resolved Date Acute respiratory failure 06/18/20212021 Pain in joint, pelvic region and thigh 3 11/28/2012 Enthesopathy of hip region 10/27/201211/28 Acute gastritis without mention of hemorrhage 12/07/2014 Iron deficiency anemia, unspecified 02/14/2009 05/10/2018 documented as of this encounter (statuses as of 05/25/2022) [facility] Narrative* Problem Noted Date Resolved Date Acute respiratory failure 06/18/20212021 Pain in joint, pelvic region and thigh 3 11/28/2012 Enthesopathy of hip region 10/27/201211/28 Acute gastritis without mention of hemorrhage 12/07/2014 Iron deficiency anemia, unspecified 02/14/2009 05/10/2018 documented as of this encounter (statuses as of 06/05/2022) [facility] of [facility] Narrative* Problem Noted Date Resolved Date Acute respiratory failure 06/18/20212021 Pain in joint, pelvic region and thigh 3 11/28/2012 Enthesopathy of hip region 10/27/201211/28 Acute gastritis without mention of hemorrhage 12/07/2014 Iron deficiency anemia, unspecified 02/14/2009 05/10/2018 documented as of this encounter (statuses as of 06/10/2022) [place] [address]-10-2021 History of Past illness Narrative* Problem Noted Date Resolved Date Acute respiratory failure 06/18/20212021 Pain in joint, pelvic region and thigh 3 11/28/2012 Enthesopathy of hip region 10/27/201211/28 Acute gastritis without mention of hemorrhage 12/07/2014 Iron deficiency anemia, unspecified 02/14/2009 05/10/2018 documented as of this encounter (statuses as of 06/28/2022) [facility] Narrative* Problem Noted Date Resolved Date Acute respiratory failure 06/18/20212021 Pain in joint, pelvic region and thigh 3 11/28/2012 Enthesopathy of hip region 10/27/201211/28 Acute gastritis without mention of hemorrhage 12/07/2014 Iron deficiency anemia, unspecified 02/14/2009 05/10/2018 documented as of this encounter (statuses as of 06/29/2022) [facility] Narrative* Problem Noted Date Resolved Date Acute respiratory failure 06/18/20212021 Pain in joint, pelvic region and thigh 3 11/28/2012 Enthesopathy of hip region 10/27/201211/28 Acute gastritis without mention of hemorrhage 12/07/2014 Iron deficiency anemia, unspecified 02/14/2009 05/10/2018 documented as of this encounter (statuses as of 07/19/2022) [facility] Narrative* Problem Noted Date Resolved Date Acute respiratory failure 06/18/20212021 Pain in joint, pelvic region and thigh 3 11/28/2012 Enthesopathy of hip region 10/27/201211/28 Acute gastritis without mention of hemorrhage 12/07/2014 Iron deficiency anemia, unspecified 02/14/2009 05/10/2018 documented as of this encounter (statuses as of 07/20/2022) [facility] Narrative* Problem Noted Date Resolved Date Acute respiratory failure 06/18/20212021 Pain in joint, pelvic region and thigh 3 11/28/2012 Enthesopathy of hip region 10/27/201211/28 Acute gastritis without mention of hemorrhage 12/07/2014 Iron deficiency anemia, unspecified 02/14/2009 05/10/2018 documented as of this encounter (statuses as of 09/10/2022) [facility]arr[facility]* Problem Noted Date Resolved Date Acute respiratory failure 06/18/20212021 Pain in joint, pelvic region and thigh 3 11/28/2012 Enthesopathy of hip region 10/27/201211/28 Acute gastritis without mention of hemorrhage 12/07/2014 Iron deficiency anemia, unspecified 02/14/2009 05/10/2018 documented as of this encounter (statuses as of 11/06/2022) [facility]arr[facility]* Problem Noted Date Resolved Date Acute respiratory failure 06/18/20212021 Pain in joint, pelvic region and thigh 3 11/28/2012 Enthesopathy of hip region 10/27/201211/28 Acute gastritis without mention of hemorrhage 12/07/2014 Iron deficiency anemia, unspecified 02/14/2009 05/10/2018 documented as of this encounter (statuses as of 01/12/2023) [facility]arr[facility]* Problem Noted Date Resolved Date Acute respiratory failure 06/18/20212021 Pain in joint, pelvic region and thigh 3 11/28/2012 Enthesopathy of hip region 10/27/201211/28 Acute gastritis without mention of hemorrhage 12/07/2014 Iron deficiency anemia, unspecified 02/14/2009 05/10/2018 documented as of this encounter (statuses as of 01/21/2023) [facility]arr[facility]* Problem Noted Date Resolved Date Acute respiratory failure 06/18/20212021 Pain in joint, pelvic region and thigh 3 11/28/2012 Enthesopathy of hip region 10/27/201211/28 Acute gastritis without mention of hemorrhage 12/07/2014 Iron deficiency anemia, unspecified 02/14/2009 05/10/2018 documented as of this encounter (statuses as of 01/25/2023) [facility]* Problem Noted Date Resolved Date Acute respiratory failure 06/18/20212021 Pain in joint, pelvic region and thigh 3 11/28/2012 Enthesopathy of hip region 10/27/201211/28 Acute gastritis without mention of hemorrhage 12/07/2014 Iron deficiency anemia, unspecified 02/14/2009 05/10/2018 documented as of this encounter (statuses as of 01/27/2023) [facility]arr[facility]* Problem Noted Date Resolved Date Acute respiratory failure 06/18/20212021 Pain in joint, pelvic region and thigh 3 11/28/2012 Enthesopathy of hip region 10/27/201211/28 Acute gastritis without mention of hemorrhage 12/07/2014 Iron deficiency anemia, unspecified 02/14/2009 05/10/2018 documented as of this encounter (statuses as of 02/02/2023) [facility]* Problem Noted Date Resolved Date Acute respiratory failure 06/18/20212021 Pain in joint, pelvic region and thigh 3 11/28/2012 Enthesopathy of hip region 10/27/201211/28 Acute gastritis without mention of hemorrhage 12/07/2014 Iron deficiency anemia, unspecified 02/14/2009 05/10/2018 documented as of this encounter (statuses as of 02/03/2023) [facility]* Problem Noted Date Resolved Date Acute respiratory failure 06/18/20212021 Pain in joint, pelvic region and thigh 3 11/28/2012 Enthesopathy of hip region 10/27/201211/28 Acute gastritis without mention of hemorrhage 12/07/2014 Iron deficiency anemia, unspecified 02/14/2009 05/10/2018 documented as of this encounter (statuses as of 02/08/2023) [facility]* Problem Noted Date Diagnosed Date Resolved Date Acute respiratory failure 06/18/2021 Pain in joint, pelvic region and thigh 10/27/2012 11/28/2012 Enthesopathy of hip region 10/27/2012 0 11/28/2012 Acute gastritis without mention of hemorrhage 02/15/20 09 12/07/2014 Iron deficiency anemia, unspecified 02/14/2009 05/10/2018 documented as of this encounter (statuses as of 2023) [facility]* Problem Noted Date Diagnosed Date Resolved Date Acute respiratory failure 06/18/2021 Pain in joint, pelvic region and thigh 10/27/2012 11/28/2012 Enthesopathy of hip region 10/27/2012 0 11/28/2012 Acute gastritis without mention of hemorrhage 02/15/20 09 12/07/2014 Iron deficiency anemia, unspecified 02/14/2009 05/10/2018 documented as of this encounter (statuses as of 03/23/2023) [facility]* Problem Noted Date Diagnosed Date Resolved Date Acute respiratory failure 06/18/2021 Pain in joint, pelvic region and thigh 10/27/2012 11/28/2012 Enthesopathy of hip region 10/27/2012 0 11/28/2012 Acute gastritis without mention of hemorrhage 02/15/20 09 12/07/2014 Iron deficiency anemia, unspecified 02/14/2009 05/10/2018 documented as of this encounter (statuses as of 03/23/2023) [facility]* Problem Noted Date Diagnosed Date Resolved Date Acute respiratory failure 06/18/2021 Pain in joint, pelvic region and thigh 10/27/2012 11/28/2012 Enthesopathy of hip region 10/27/2012 0 11/28/2012 Acute gastritis without mention of hemorrhage 02/15/20 09 12/07/2014 Iron deficiency anemia, unspecified 02/14/2009 05/10/2018 documented as of this encounter (statuses as of 03/23/2023) [facility]* Problem Noted Date Diagnosed Date Resolved Date Acute respiratory failure 06/18/2021 Pain in joint, pelvic region and thigh 10/27/2012 11/28/2012 Enthesopathy of hip region 10/27/2012 0 11/28/2012 Acute gastritis without mention of hemorrhage 02/15/20 09 12/07/2014 Iron deficiency anemia, unspecified 02/14/2009 05/10/2018 documented as of this encounter (statuses as of 03/25/2023) [facility]* Problem Noted Date Diagnosed Date Resolved Date Acute respiratory failure 06/18/2021 Pain in joint, pelvic region and thigh 10/27/2012 11/28/2012 Enthesopathy of hip region 10/27/2012 0 11/28/2012 Acute gastritis without mention of hemorrhage 02/15/20 09 12/07/2014 Iron deficiency anemia, unspecified 02/14/2009 05/10/2018 documented as of this encounter (statuses as of 03/29/2023) [facility]* Problem Noted Date Diagnosed Date Resolved Date Acute respiratory failure 06/18/2021 Pain in joint, pelvic region and thigh 10/27/2012 11/28/2012 Enthesopathy of hip region 10/27/2012 0 11/28/2012 Acute gastritis without mention of hemorrhage 02/15/20 09 12/07/2014 Iron deficiency anemia, unspecified 02/14/2009 05/10/2018 documented as of this encounter (statuses as of 04/07/2023) [facility]* Problem Noted Date Diagnosed Date Resolved Date Acute respiratory failure 06/18/2021 Pain in joint, pelvic region and thigh 10/27/2012 11/28/2012 Enthesopathy of hip region 10/27/2012 0 11/28/2012 Acute gastritis without mention of hemorrhage 02/15/20 09 12/07/2014 Iron deficiency anemia, unspecified 02/14/2009 05/10/2018 documented as of this encounter (statuses as of 04/07/2023) [facility]* Problem Noted Date Diagnosed Date Resolved Date Acute respiratory failure 06/18/2021 Pain in joint, pelvic region and thigh 10/27/2012 11/28/2012 Enthesopathy of hip region 10/27/2012 0 11/28/2012 Acute gastritis without mention of hemorrhage 02/15/20 09 12/07/2014 Iron deficiency anemia, unspecified 02/14/2009 05/10/2018 documented as of this encounter (statuses as of 04/12/2023) [facility]* Problem Noted Date Diagnosed Date Resolved Date Acute respiratory failure 06/18/2021 Pain in joint, pelvic region and thigh 10/27/2012 11/28/2012 Enthesopathy of hip region 10/27/2012 0 11/28/2012 Acute gastritis without mention of hemorrhage 02/15/20 09 12/07/2014 Iron deficiency anemia, unspecified 02/14/2009 05/10/2018 documented as of this encounter (statuses as of 04/23/2023) [facility]* Problem Noted Date Diagnosed Date Resolved Date Acute respiratory failure 06/18/2021 Pain in joint, pelvic region and thigh 10/27/2012 11/28/2012 Enthesopathy of hip region 10/27/2012 0 11/28/2012 Acute gastritis without mention of hemorrhage 02/15/20 09 12/07/2014 Iron deficiency anemia, unspecified 02/14/2009 05/10/2018 documented as of this encounter (statuses as of 05/02/2023) [facility]* Problem Noted Date Diagnosed Date Resolved Date Acute respiratory failure 06/18/2021 Pain in joint, pelvic region and thigh 10/27/2012 11/28/2012 Enthesopathy of hip region 10/27/2012 0 11/28/2012 Acute gastritis without mention of hemorrhage 02/15/20 09 12/07/2014 Iron deficiency anemia, unspecified 02/14/2009 05/10/2018 documented as of this encounter (statuses as of 05/04/2023) [facility]11-10-2021 History of Past illness Narrative* Problem Noted Date Diagnosed Date Resolved Date Acute respiratory failure 06/18/2021 Pain in joint, pelvic region and thigh 10/27/2012 11/28/2012 Enthesopathy of hip region 10/27/2012 0 11/28/2012 Acute gastritis without mention of hemorrhage 02/15/20 09 12/07/2014 Iron deficiency anemia, unspecified 02/14/2009 05/10/2018 documented as of this encounter (statuses as of 05/15/2023) [facility]11-10-2021 History of Past illness Narrative* Problem Noted Date Diagnosed Date Resolved Date Acute respiratory failure 06/18/2021 Pain in joint, pelvic region and thigh 10/27/2012 11/28/2012 Enthesopathy of hip region 10/27/2012 0 11/28/2012 Acute gastritis without mention of hemorrhage 02/15/20 09 12/07/2014 Iron deficiency anemia, unspecified 02/14/2009 05/10/2018 documented as of this encounter (statuses as of 05/31/2023) [facility]11[facility]10-2021 History of Past illness Narrative* Problem Noted Date Diagnosed Date Resolved Date Acute respiratory failure 06/18/2021 Pain in joint, pelvic region and thigh 10/27/2012 11/28/2012 Enthesopathy of hip region 10/27/2012 0 11/28/2012 Acute gastritis without mention of hemorrhage 02/15/20 09 12/07/2014 Iron deficiency anemia, unspecified 02/14/2009 05/10/2018 documented as of this encounter (statuses as of 06/03/2023) [facility]11-10-2021 History of Past illness Narrative* Problem Noted Date Diagnosed Date Resolved Date Acute respiratory failure 06/18/2021 Pain in joint, pelvic region and thigh 10/27/2012 11/28/2012 Enthesopathy of hip region 10/27/2012 0 11/28/2012 Acute gastritis without mention of hemorrhage 02/15/20 09 12/07/2014 Iron deficiency anemia, unspecified 02/14/2009 05/10/2018 documented as of this encounter (statuses as of 06/04/2023) [address]10-2021 History of Past illness Narrative* Problem Noted Date Diagnosed Date Resolved Date Acute respiratory failure 06/18/2021 Pain in joint, pelvic region and thigh 10/27/2012 11/28/2012 Enthesopathy of hip region 10/27/2012 0 11/28/2012 Acute gastritis without mention of hemorrhage 02/15/20 09 12/07/2014 Iron deficiency anemia, unspecified 02/14/2009 05/10/2018 documented as of this encounter (statuses as of 06/04/2023) [facility]11-10-2021 History of Past illness Narrative* Problem Noted Date Diagnosed Date Resolved Date Acute respiratory failure 06/18/2021 Pain in joint, pelvic region and thigh 10/27/2012 11/28/2012 Enthesopathy of hip region 10/27/2012 0 11/28/2012 Acute gastritis without mention of hemorrhage 02/15/20 09 12/07/2014 Iron deficiency anemia, unspecified 02/14/2009 05/10/2018 documented as of this encounter (statuses as of 06/08/2023) [facility]11-10-2021 History of Past illness Narrative* Problem Noted Date Diagnosed Date Resolved Date Acute respiratory failure 06/18/2021 Pain in joint, pelvic region and thigh 10/27/2012 11/28/2012 Enthesopathy of hip region 10/27/2012 0 11/28/2012 Acute gastritis without mention of hemorrhage 02/15/20 09 12/07/2014 Iron deficiency anemia, unspecified 02/14/2009 05/10/2018 documented as of this encounter (statuses as of 06/08/2023) [facility]10-2021 History of Past illness Narrative* Problem Noted Date Diagnosed Date Resolved Date Acute respiratory failure 06/18/2021 Pain in joint, pelvic region and thigh 10/27/2012 11/28/2012 Enthesopathy of hip region 10/27/2012 0 11/28/2012 Acute gastritis without mention of hemorrhage 02/15/20 09 12/07/2014 Iron deficiency anemia, unspecified 02/14/2009 05/10/2018 documented as of this encounter (statuses as of 06/08/2023) [facility] History of Past illness Narrative* Problem Noted Date Diagnosed Date Resolved Date Acute respiratory failure 06/18/2021 Pain in joint, pelvic region and thigh 10/27/2012 11/28/2012 Enthesopathy of hip region 10/27/2012 0 11/28/2012 Acute gastritis without mention of hemorrhage 02/15/20 09 12/07/2014 Iron deficiency anemia, unspecified 02/14/2009 05/10/2018 documented as of this encounter (statuses as of 06/11/2023) [facility] History of Past illness Narrative* Problem Noted Date Diagnosed Date Resolved Date Acute respiratory failure 06/18/2021 Pain in joint, pelvic region and thigh 10/27/2012 11/28/2012 Enthesopathy of hip region 10/27/2012 0 11/28/2012 Acute gastritis without mention of hemorrhage 02/15/20 09 12/07/2014 Iron deficiency anemia, unspecified 02/14/2009 05/10/2018 documented as of this encounter (statuses as of 06/12/2023) [facility]11-10-2021 History of Past illness Narrative* Problem Noted Date Diagnosed Date Resolved Date Acute respiratory failure 06/18/2021 Pain in joint, pelvic region and thigh 10/27/2012 11/28/2012 Enthesopathy of hip region 10/27/2012 0 11/28/2012 Acute gastritis without mention of hemorrhage 02/15/20 09 12/07/2014 Iron deficiency anemia, unspecified 02/14/2009 05/10/2018 documented as of this encounter (statuses as of 06/13/2023) [facility]10-2021 History of Past illness Narrative* Problem Noted Date Diagnosed Date Resolved Date Acute respiratory failure 06/18/2021 Pain in joint, pelvic region and thigh 10/27/2012 11/28/2012 Enthesopathy of hip region 10/27/2012 0 11/28/2012 Acute gastritis without mention of hemorrhage 02/15/20 09 12/07/2014 Iron deficiency anemia, unspecified 02/14/2009 05/10/2018 documented as of this encounter (statuses as of 06/13/2023) [facility]10-2021 History of Past illness Narrative* Problem Noted Date Diagnosed Date Resolved Date Acute respiratory failure 06/18/2021 Pain in joint, pelvic region and thigh 10/27/2012 11/28/2012 Enthesopathy of hip region 10/27/2012 0 11/28/2012 Acute gastritis without mention of hemorrhage 02/15/20 09 12/07/2014 Iron deficiency anemia, unspecified 02/14/2009 05/10/2018 documented as of this encounter (statuses as of 06/13/2023) [facility]11-10-2021 History of Past illness Narrative* Problem Noted Date Diagnosed Date Resolved Date Acute respiratory failure 06/18/2021 Pain in joint, pelvic region and thigh 10/27/2012 11/28/2012 Enthesopathy of hip region 10/27/2012 0 11/28/2012 Acute gastritis without mention of hemorrhage 02/15/20 09 12/07/2014 Iron deficiency anemia, unspecified 02/14/2009 05/10/2018 documented as of this encounter (statuses as of 06/17/2023) [facility]10-2021 History of Past illness Narrative* Problem Noted Date Diagnosed Date Resolved Date Acute respiratory failure 06/18/2021 Pain in joint, pelvic region and thigh 10/27/2012 11/28/2012 Enthesopathy of hip region 10/27/2012 0 11/28/2012 Acute gastritis without mention of hemorrhage 02/15/20 09 12/07/2014 Iron deficiency anemia, unspecified 02/14/2009 05/10/2018 documented as of this encounter (statuses as of 07/07/2023) [facility]10-2021 History of Past illness Narrative* Problem Noted Date Diagnosed Date Resolved Date Acute respiratory failure 06/18/2021 Pain in joint, pelvic region and thigh 10/27/2012 11/28/2012 Enthesopathy of hip region 10/27/2012 0 11/28/2012 Acute gastritis without mention of hemorrhage 02/15/20 09 12/07/2014 Iron deficiency anemia, unspecified 02/14/2009 05/10/2018 documented as of this encounter (statuses as of 07/13/2023) [facility]10-2021 History of Past illness Narrative* Problem Noted Date Diagnosed Date Resolved Date Acute respiratory failure 06/18/2021 Pain in joint, pelvic region and thigh 10/27/2012 11/28/2012 Enthesopathy of hip region 10/27/2012 0 11/28/2012 Acute gastritis without mention of hemorrhage 02/15/20 09 12/07/2014 Iron deficiency anemia, unspecified 02/14/2009 05/10/2018 documented as of this encounter (statuses as of 07/13/2023) [facility]2021 History of Past illness Narrative* Problem Noted Date Diagnosed Date Resolved Date Acute respiratory failure 06/18/2021 Pain in joint, pelvic region and thigh 10/27/2012 11/28/2012 Enthesopathy of hip region 10/27/2012 0 11/28/2012 Acute gastritis without mention of hemorrhage 02/15/20 09 12/07/2014 Iron deficiency anemia, unspecified 02/14/2009 05/10/2018 documented as of this encounter (statuses as of 07/17/2023) [facility]21 History of Past illness Narrative* Problem Noted Date Diagnosed Date Resolved Date Acute respiratory failure 06/18/2021 Pain in joint, pelvic region and thigh 10/27/2012 11/28/2012 Enthesopathy of hip region 10/27/2012 0 11/28/2012 Acute gastritis without mention of hemorrhage 02/15/20 09 12/07/2014 Iron deficiency anemia, unspecified 02/14/2009 05/10/2018 documented as of this encounter (statuses as of 07/27/2023) [facility]11-10-2021 History of Past illness Narrative* [...] of this encounter (statuses as of 10/07/2023) [facility]11[facility]10-2021 History of Past illness Narrative* [...] encounter (statuses as of 11/25/2023) [facility] + Plan note Future Appointments Appointment Date:09/16/2023 02:45:00 PM Scheduled Provider: Location:[facility] Appointment Type:CV OV [facility] Evaluation note* Diagnosis Frequent UTI- Primary Urinary tract infection, site not specified Confusion Unspecified psychosis documented in this encounter [facility] note* Diagnosis Essential hypertension- Primary Unspecified essential hypertension Mixed hyperlipidemia Acquired hypothyroidism Unspecified hypothyroidism History of pulmonary embolism Personal history of pulmonary embolism Gastroesophageal reflux disease without esophagitis Esophageal reflux Osteoarthritis of multiple joints, unspecified osteoarthritis type Medication management Encounter for long-term (current) use of other medications documented in this encounter [facility] note* Diagnosis Osteoarthritis of multiple joints, unspecified osteoarthritis type [facility] Diagnosis Hypoxia- Primary Hypoxemia [facility] Diagnosis Osteoarthritis of multiple joints, unspecified osteoarthritis type [facility] Diagnosis Essential hypertension- Primary Unspecified essential hypertension Mixed hyperlipidemia Gastroesophageal reflux disease without esophagitis Esophageal reflux Acquired hypothyroidism Unspecified hypothyroidism Aortic stenosis, moderate Aortic valve disorders Osteoarthritis of multiple joints, unspecified osteoarthritis type Encounter for immunization Need for other specified prophylactic vaccination against single bacterial disease Advance directive discussed with patient Other specified counseling documented in this encounter [facility] note* Diagnosis Acute cough- Primary Wheezing documented in this encounter [facility] note* Diagnosis Osteoarthritis of multiple joints, unspecified osteoarthritis type documented in this encounter [facility] noteNo assessment information availableWHocking [facility] Work Phone[facility]* Diagnosis Severe back pain- Primary Backache, unspecified Fall, initial encounter [facility]* Diagnosis Urinary frequency- Primary documented in this encounter [facility] note* Diagnosis Sciatica, right side- Primary Fall, subsequent encounter documented in this encounter [facility] note* Diagnosis Chronic low back pain with sciatica, sciatica laterality unspecified, unspecified back pain laterality- Primary Compression fracture of T11 vertebra, initial encounter ([facility]) documented in this encounter [facility] note* Diagnosis Sciatica, right side- Primary Falls, subsequent encounter [facility]* Diagnosis Ovarian mass- Primary Unspecified noninflammatory disorder of ovary, fallopian tube, and broad ligament documented in this encounter [facility] note* Diagnosis Preop examination- Primary Preoperative examination, unspecified Ovarian mass Unspecified noninflammatory disorder of ovary, fallopian tube, and broad ligament Preop examination Preoperative examination, unspecified documented in this encounter [facility] note* Diagnosis Ovarian mass Unspecified noninflammatory disorder of ovary, fallopian tube, and broad ligament Preop examination Preoperative examination, unspecified documented in this encounter [facility] note* Diagnosis Ovarian mass Unspecified noninflammatory disorder of ovary, fallopian tube, and broad ligament Preop examination Preoperative examination, unspecified documented in this encounter [facility] note* Diagnosis Pre-op evaluation- Primary Preoperative examination, unspecified Acquired hypothyroidism Unspecified hypothyroidism Essential hypertension Unspecified essential hypertension Gastroesophageal reflux disease without esophagitis Esophageal reflux History of pulmonary embolism Personal history of pulmonary embolism Aortic stenosis, moderate Aortic valve disorders documented in this encounter [facility] note* Diagnosis 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 Malignant neoplasm of ovary Post-operative state Other postprocedural status [facility]* Diagnosis 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, NEC documented in this encounter [facility] note* Diagnosis 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 Malignant neoplasm of ovary [facility]* Diagnosis Encounter for education- Primary Counseling NOS documented in this encounter [facility] note* Diagnosis 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 Malignant neoplasm of ovary [facility] Diagnosis Osteoarthritis of multiple joints, unspecified osteoarthritis type [facility] Diagnosis 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 Malignant neoplasm of ovary [facility] Diagnosis Osteoarthritis of multiple joints, unspecified osteoarthritis type [facility] Diagnosis Pelvic mass Abdominal or pelvic swelling, mass or lump, unspecified site [facility]* Diagnosis Sciatica, right side Fall, subsequent encounter [facility]* Diagnosis 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 neoplasm of ovary [facility]* Diagnosis Osteoarthritis of multiple joints, unspecified osteoarthritis type [facility] Diagnosis 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 neoplasm of ovary [facility] Diagnosis 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 neoplasm of ovary [facility]* Diagnosis Osteoarthritis of multiple joints, unspecified osteoarthritis type [facility]* Diagnosis Onset Date Resolution Status Fall acute Generalized weakness acute Rhabdomyolysis acute Urinary tract infection [facility] Work Phone: Evaluation note* Diagnosis Osteoarthritis of multiple joints, unspecified osteoarthritis type [facility]* Diagnosis Recurrent UTI (urinary tract infection)- Primary Urinary tract infection, site not specified Essential hypertension Unspecified essential hypertension Malignant neoplasm of ovary, unspecified laterality (HCC) Aortic stenosis, moderate Aortic valve disorders [facility] Diagnosis Recurrent UTI (urinary tract infection)- Primary Urinary tract infection, site not specified [facility]* Diagnosis Essential hypertension, malignant- Primary [facility]* Diagnosis Recurrent UTI (urinary tract infection)- Primary Urinary tract infection, site not specified [facility]* Diagnosis Takotsubo cardiomyopathy- Primary Takotsubo syndrome [facility]* Diagnosis Acute cough Wheezing Pre-op evaluation- Primary Preoperative examination, unspecified Acquired hypothyroidism Unspecified hypothyroidism Essential hypertension Unspecified essential hypertension Gastroesophageal reflux disease without esophagitis Esophageal reflux History of pulmonary embolism Personal history of pulmonary embolism Aortic stenosis, moderate Aortic valve disorders documented in this encounter [facility] course Narrative No data available for this section [facility] Hospital Discharge instructions No data available for this section [facility] Progress note No data available for this section [facility] Reason for referral (narrative)* Outpatient Procedure (Routine) - Pending Review Specialty Diagnoses / Procedures Referred By Contac t Referred To Contact [facility] Diagnoses Hypoxia Procedures OXIMETRY WITH AMBULATION NONINVASIVE EAR/PULSE OXIMETRY MULTIPLE DETER Carl Encarnacion MD [address] [place] [address] Res[facility] [address] [place] [address] Referral ID Status Reason Start Date Expiration Date Visits Requested Visits Authorized [id number] Pending Review Auto-Generat ed Referral 05/01/2022 05/31/2023 1 1 [facility] for referral (narrative)* Diagnostic Procedure Only (Routine) - Closed Specialty Diagnoses / Procedures Referred By Contac t Referred To Contact XR IMAGING Diagnoses Sciatica, right side Fall, subsequent encounter Procedures XR LUMBAR GENERAL 3V AP/LAT/L5-S1 RADEX SPINE LUMBOSACRAL 2/3 VIEWS Kristen Eugene PA-C [address] [place] [address] Xr Imaging Referral ID Status Reason Start Date Expiration Date V isits Requested Visits Authorized [id number] Closed Auto-Generate d Referral 01/27/2023 02/26/2024 1 1 * Physical Therapy (Routine) - Authorized Specialty Diagnoses / Procedures Referred By Contac t Referred To Contact [facility] Diagnoses Sciatica, right side Fall, subsequent encounter Procedures CONSULT TO PHYSICAL THERAPY PHYSICAL THERAPY EVALUATION HIGH COMPLEX 45 MINS THERAPEUTIC EXERCISES RE, EA 15 MIN. Kristen Eugene PA-C [address] [place] [address] [facility] [address] [address] Referral ID Status Reason Start Date Expiration Date Visits Requested Visits Authorized [id number] Authorized Auto-Generat ed Referral 08/09/2022 08/08/2023 20 20 [facility] for referral (narrative)* Outpatient Procedure (Urgent) - Authorized Specialty Diagnoses / Procedures Referred By Contac t Referred To Contact [facility] Diagnoses Preop examination Procedures ECHO ECHO TTHRC R-T 2D W/WOM-MODE COMPL SPEC&[place] [address] [place] [address] [facility] [address] [address] Referral ID Status Reason Start Date Expiration Date Visits Requested Visits Authorized [id number] Authorized Auto-Generat ed Referral 03/22/2023 03/21/2024 1 1 [facility] for referral (narrative)* Outpatient Procedure (Routine) - Closed Specialty Diagnoses / Procedures Referred By Contac t Referred To Contact [facility] Diagnoses Ovarian mass Preop examination Procedures ECG COMPLETE ECG ROUTINE ECG W/LEAST 12 LDS W/I&R Annmarie Mendoza, [employer]PARER [address] [place] [address] [address] Referral ID Status Reason Start Date Expiration Date V isits Requested Visits Authorized [id number] Closed Auto-Generate d Referral 03/22/2023 03/21/2024 1 [facility] Procedure Only (Routine) - Closed Specialty Diagnoses / Procedures Referred By Contac t Referred To Contact XR IMAGING Diagnoses Sciatica, right side Fall, subsequent encounter Procedures XR LUMBAR GENERAL 3V AP/LAT/L5-S1 RADEX SPINE LUMBOSACRAL 2/3 VIEWS Kristen Eugene PA-C [address] [place] [address] [place] [address] Referral ID Status Reason Start Date Expiration Date V isits Requested Visits Authorized [id number] Closed Auto-Generate d Referral 01/27/2023 02/26/2024 1 1 [facility] for referral (narrative)No reason for referral information availableWHocking [facility] Work Phone: Reason for visit Narrative* Outpatient Procedure (Routine) - Closed Specialty Diagnoses / Procedures Referred By Contac t Referred To Contact [facility] Diagnoses Ovarian mass Preop examination Procedures ECG COMPLETE ECG ROUTINE ECG W/LEAST 12 LDS W/I&R Annmarie Mendoza, MACH[employer]ER [address] [place] [address] [facility] [address] [place] [address] Referral ID Status Reason Start Date Expiration Date V isits Requested Visits Authorized [id number] Closed Auto-Generate d Referral 03/22/2023 03/21/2024 1 1 [facility] for visit Narrative* Diagnostic Procedure Only (Routine) - Closed Specialty Diagnoses / Procedures Referred By Contac t Referred To Contact XR IMAGING Diagnoses Sciatica, right side Fall, subsequent encounter Procedures XR LUMBAR GENERAL 3V AP/LAT/L5-S1 RADEX SPINE LUMBOSACRAL 2/3 VIEWS Kristen Eugene PA-C [address] [place] [address] [place] [address] Referral ID Status Reason Start Date Expiration Date V isits Requested Visits Authorized [id number] Closed Auto-Generate d Referral 01/27/2023 02/26/2024 1 1 [facility] Chief Complaint and Reason for [...] MONTHLY EXAM August 11, 2024 5: 27pm [facility] WORK September 03, 2024 1:00pm MONTHLY EXAM September 12, 2024 8 :04pm PR[facility] LAB WORK September 14, 2024 5:00am LABWORK September 18, 2024 5:00am LABWORK September 25, 2024 7:00am NEW CONCERN September 27, 2024 2:16pm PR[facility] LAB WORK September 27 2:30pm LABWORK October 16, 2024 5:0 0am Chief Complaint Admit Date LABWORK August 07, 2024 5:00am MONTHLY EXAM August 11, 2024 5: 27pm PR[facility] LAB WORK September 03, 2024 1:00pm MONTHLY EXAM September 12, 2024 8 :04pm PR[facility] LAB WORK September 14, 2024 5:00am LABWORK September 18, 2024 5:00am LABWORK September 25, 2024 7:00am NEW CONCERN September 27, 2024 2:16pm PR[facility] LAB WORK September 27 2:30pm LABWORK October 16, 2024 5:0 0am MONTHLY EXAM October 19, 2024 9:2 9am LABWORK October 30, 2024 5:0 0am Chief Complaint Admit Date LABWORK August 07, 2024 5:00am MONTHLY EXAM August 11, 2024 5: 27pm PR[facility] LAB WORK September 03, 2024 1:00pm MONTHLY EXAM September 12, 2024 8 :04pm PR[facility] LAB WORK September 14, 2024 5:00am LABWORK September 18, 2024 5:00am LABWORK September 25, 2024 7:00am NEW CONCERN September 27, 2024 2:16pm PR[facility] LAB WORK September 27 2:30pm LABWORK October 16, 2024 5:0 0am MONTHLY EXAM October 19, 2024 9:2 9am LABWORK October 30, 2024 5:0 0am PRISON LAB WORK November 02, 2024 5 :00am Chief Complaint Admit Date LABWORK October 30, 2024 5:0 0am PRISON LAB WORK November 02, 2024 5 :00am MONTHLY EXAM November 07, 2024 5:40 pm NEW CONCERN November 17, 2024 3:5 0pm NEW CONCERN November 22, 2024 5:3 1pm RIGHT HIP December 04, 2024 3:2 8pm Room 5 December 04, 2024 3:4 7pm LABWORK December 05, 2024 11: 20am NEW CONCERN December 05, 2024 4:3 3pm LABWORK December 11, 2024 5:00am MONTHLY EXAM January 09, 2025 5:45p m LABWORK January 18, 2025 5:00 am LABWORK January 22, 2025 5:00 am Reason for Visit Admit Date Osteoarthritis of sacroiliac joint December 04, 2024 3:28pm Chief Complaint Admit Date MONTHLY EXAM November 07, 2024 5:40 pm NEW CONCERN November 17, 2024 3:5 0pm NEW CONCERN November 22, 2024 5:3 1pm RIGHT HIP December 04, 2024 3:2 8pm Room 5 December 04, 2024 3:4 7pm LABWORK December 05, 2024 11: 20am NEW CONCERN December 05, 2024 4:3 3pm LABWORK December 11, 2024 5:00am FOLLOW UP EXAM December 11, 2024 3:49pm MONTHLY EXAM January 09, 2025 5:45p m LABWORK January 18, 2025 5:00 am LABWORK January 22, 2025 5:00 am LABOWRK February 19, 2025 5:00 am Chief Complaint Admit Date NEW CONCERN November 22, 2024 5:3 1pm RIGHT HIP December 04, 2024 3:2 8pm Room 5 December 04, 2024 3:4 7pm LABWORK December 05, 2024 11: 20am NEW CONCERN December 05, 2024 4:3 3pm LABWORK December 11, 2024 5:00am FOLLOW UP EXAM December 11, 2024 3:49pm MONTHLY EXAM January 09, 2025 5:45p m LABWORK January 18, 2025 5:00 am LABWORK January 22, 2025 5:00 am LABOWRK February 19, 2025 5:00 am Monthly Exam March 01, 2025 10:4 2am PRISON LAB WORK March 05, 2025 4: 00am Chief Complaint Admit Date LABWORK December 05, 2024 11: 20am NEW CONCERN December 05, 2024 4:3 3pm LABWORK December 11, 2024 5:00am FOLLOW UP EXAM December 11, 2024 3:49pm MONTHLY EXAM January 09, 2025 5:45p m LABWORK January 18, 2025 5:00 am LABWORK January 22, 2025 5:00 am LABOWRK February 19, 2025 5:00 am Monthly Exam March 01, 2025 10:4 2am PRISON LAB WORK March 05, 2025 4: 00am MONTHLY EXAM March 20, 2025 7: 55pm Advance Directives No Advanced Directives Records Found Advance Directive Response Recorded Date/ Time Living Will No January 12, 2023 1 0:27am Power of Hematology Nurse No January 12, 2023 10:27am Name of Medical Power of Hematology Nurse ? January 12, 2023 10:26am Advance Directive Response Recorded Date/ Time Living Will No November 23, 2023 8:14am Power of Hematology Nurse No November 22 8:14am Advance Directive Response Recorded Date/ Time Living Will No November 23, 2023 12:55pm Power of Hematology Nurse No November 22 12:55pm Reason for Referral Specialty Diagnoses / Procedures Referred By Contac t Referred To Contact Orthopedics Diagnoses Chronic low back pain with sciatica, sciatica laterality unspecified, unspecified back pain laterality Compression fracture of T11 vertebra, initial encounter ([facility]) Procedures CONSULT TO ORTHOPAEDICS OFFICE/OUTPATIENT [facility] 60-74 MINUTES Kristen Eugene PA-C [address] [place] [address] Referral ID Status Reason Start Date Expiration Date Visits Requested Visits Authorized [id number] Pending Review PCP Requested Referral 02/02/2023 02/02/2024 1 1 Specialty Diagnoses / Procedures Referred By Contac t Referred To Contact Pain Management Diagnoses Chronic low back pain with sciatica, sciatica laterality unspecified, unspecified back pain laterality Compression fracture of T11 vertebra, initial encounter ([facility]) Procedures CONSULT TO PAIN MGT OFFICE/OUTPATIENT [facility] 60-74 MINUTES Kristen Eugene PA-C [address] [place] [address] Referral ID Status Reason Start Date Expiration Date Visits Requested Visits Authorized [id number] Pending Review PCP Requested Referral 02/02/2023 02/02/2024 1 1 Specialty Diagnoses / Procedures Referred By Contac t Referred To Contact [facility] Diagnoses Sciatica, right side Falls, subsequent encounter Procedures PT REHAB FOLLOW UP ORDER THERAPEUTIC EXERCISES RE, EA 15 MIN. America Camejo, PT [facility] [address] [place] [address] Referral ID Status Reason Start Date Expiration Date Visits Requested Visits Authorized [id number] Pending Review PCP Requested Referral Auto-Generate d Referral 02/02/2023 05/03/2023 1 1 Specialty Diagnoses / Procedures Referred By Contac t Referred To Contact Diagnoses Ovarian mass Procedures CONSULT TO GYNECOLOGIC/ONCOLOGY OFFICE/OUTPATIENT [facility] 60-74 MINUTES Ely Rico MD [address] [place] [id number] Referral ID Status Reason Start Date Expiration Date Visits Requested Visits Authorized [id number] Pending Review PCP Requested Referral Auto-Generate d Referral 03/16/2023 03/15/2024 1 1 Specialty Diagnoses / Procedures Referred By Contac t Referred To Contact Diagnoses 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 ([facility]) Procedures CONSULT TO HEMATOLOGY/ONCOLOGY OFFICE/OUTPATIENT [facility] 60-74 MINUTES Annmarie Mendoza, [employer] [address] [place] [address] Wilmar Forbes DO [address] [place] [address] Referral ID Status Reason Start Date Expiration Date Visits Requested Visits Authorized [id number] Pending Review PCP Requested Referral 05/03/2023 05/02/2024 1 1 Specialty Diagnoses / Procedures Referred By Contac t Referred To Contact CT IMAGING Diagnoses Pelvic mass Procedures CT ABD/PEL W IVCON CT ABD & PELVIS W/CONTRAST Carl Encarnacion MD [address] [place] [address] [place] [id number] Referral ID Status Reason Start Date Expiration Date V isits Requested Visits Authorized [id number] Closed Auto-Generate d Referral 02/26/2023 03/27/2024 1 1 Specialty Diagnoses / Procedures Referred By Contac t Referred To Contact Diagnoses Osteoarthritis of multiple joints, unspecified osteoarthritis type Kristen Eugene PA-C [address] [place] [address] Referral ID Status Reason Start Date Expiration Date Visits Re quested Visits Authorized [id number] Closed 1 1 Summary Purpose Family History [...] or prosecute any alcohol or drug abuse patient.[facility] the event this information is protected by the Federal Confidentiality of Alcohol and Drug Abuse Patient Records regulations: The Federal rules restrict any use of the information to criminally investigate or prosecute any alcohol or drug abuse patient.[facility] CenterIn the event this information is protected by the Federal Confidentiality of Alcohol and Drug Abuse Patient Records regulations: The Federal rules restrict any use of the information to criminally investigate or prosecute any alcohol or drug abuse patient.[facility] CenterIn the event this information is protected by the Federal Confidentiality of Alcohol and Drug Abuse Patient Records regulations: The Federal rules restrict any use of the information to criminally investigate or prosecute any alcohol or drug abuse patient.[facility] CenterIn the event this information is protected by the Federal Confidentiality of Alcohol and Drug Abuse Patient Records regulations: The Federal rules restrict any use of the information to criminally investigate or prosecute any alcohol or drug abuse patient.[facility] CenterIn the event this information is protected by the Federal Confidentiality of Alcohol and Drug Abuse Patient Records regulations: The Federal rules restrict any use of the information to criminally investigate or prosecute any alcohol or drug abuse patient.[facility] CenterIn the event this information is protected by the Federal Confidentiality of Alcohol and Drug Abuse Patient Records regulations: The Federal rules restrict any use of the information to criminally investigate or prosecute any alcohol or drug abuse patient.[facility] CenterIn the event this information is protected by the Federal Confidentiality of Alcohol and Drug Abuse Patient Records regulations: The Federal rules restrict any use of the information to criminally investigate or prosecute any alcohol or drug abuse patient.[facility] CenterIn the event this information is protected by the Federal Confidentiality of Alcohol and Drug Abuse Patient Records regulations: The Federal rules restrict any use of the information to criminally investigate or prosecute any alcohol or drug abuse patient.[facility] CenterIn the event this information is protected by the Federal Confidentiality of Alcohol and Drug Abuse Patient Records regulations: The Federal rules restrict any use of the information to criminally investigate or prosecute any alcohol or drug abuse patient.[facility] CenterIn the event this information is protected by the Federal Confidentiality of Alcohol and Drug Abuse Patient Records regulations: The Federal rules restrict any use of the information to criminally investigate or prosecute any alcohol or drug abuse patient.[facility] CenterIn the event this information is protected by the Federal Confidentiality of Alcohol and Drug Abuse Patient Records regulations: The Federal rules restrict any use of the information to criminally investigate or prosecute any alcohol or drug abuse patient.[facility] CenterIn the event this information is protected by the Federal Confidentiality of Alcohol and Drug Abuse Patient Records regulations: The Federal rules restrict any use of the information to criminally investigate or prosecute any alcohol or drug abuse patient.[facility] CenterIn the event this information is protected by the Federal Confidentiality of Alcohol and Drug Abuse Patient Records regulations: The Federal rules restrict any use of the information to criminally investigate or prosecute any alcohol or drug abuse patient.[facility] CenterIn the event this information is protected by the Federal Confidentiality of Alcohol and Drug Abuse Patient Records regulations: The Federal rules restrict any use of the information to criminally investigate or prosecute any alcohol or drug abuse patient.[facility] CenterIn the event this information is protected by the Federal Confidentiality of Alcohol and Drug Abuse Patient Records regulations: The Federal rules restrict any use of the information to criminally investigate or prosecute any alcohol or drug abuse patient.[facility] CenterIn the event this information is protected by the Federal Confidentiality of Alcohol and Drug Abuse Patient Records regulations: The Federal rules restrict any use of the information to criminally investigate or prosecute any alcohol or drug abuse patient.[facility] CenterIn the event this information is protected by the Federal Confidentiality of Alcohol and Drug Abuse Patient Records regulations: The Federal rules restrict any use of the information to criminally investigate or prosecute any alcohol or drug abuse patient.[facility] CenterIn the event this information is protected by the Federal Confidentiality of Alcohol and Drug Abuse Patient Records regulations: The Federal rules restrict any use of the information to criminally investigate or prosecute any alcohol or drug abuse patient.[facility] CenterIn the event this information is protected by the Federal Confidentiality of Alcohol and Drug Abuse Patient Records regulations: The Federal rules restrict any use of the information to criminally investigate or prosecute any alcohol or drug abuse patient.[facility] CenterIn the event this information is protected by the Federal Confidentiality of Alcohol and Drug Abuse Patient Records regulations: The Federal rules restrict any use of the information to criminally investigate or prosecute any alcohol or drug abuse patient.[facility] CenterIn the event this information is protected by the Federal Confidentiality of Alcohol and Drug Abuse Patient Records regulations: The Federal rules restrict any use of the information to criminally investigate or prosecute any alcohol or drug abuse patient.[facility] CenterIn the event this information is protected by the Federal Confidentiality of Alcohol and Drug Abuse Patient Records regulations: The Federal rules restrict any use of the information to criminally investigate or prosecute any alcohol or drug abuse patient.[facility] CenterIn the event this information is protected by the Federal Confidentiality of Alcohol and Drug Abuse Patient Records regulations: The Federal rules restrict any use of the information to criminally investigate or prosecute any alcohol or drug abuse patient.[facility] CenterIn the event this information is protected by the Federal Confidentiality of Alcohol and Drug Abuse Patient Records regulations: The Federal rules restrict any use of the information to criminally investigate or prosecute any alcohol or drug abuse patient.[facility] CenterIn the event this information is protected by the Federal Confidentiality of Alcohol and Drug Abuse Patient Records regulations: The Federal rules restrict any use of the information to criminally investigate or prosecute any alcohol or drug abuse patient.[facility] CenterIn the event this information is protected by the Federal Confidentiality of Alcohol and Drug Abuse Patient Records regulations: The Federal rules restrict any use of the information to criminally investigate or prosecute any alcohol or drug abuse patient.[facility] CenterIn the event this information is protected by the Federal Confidentiality of Alcohol and Drug Abuse Patient Records regulations: The Federal rules restrict any use of the information to criminally investigate or prosecute any alcohol or drug abuse patient.[facility] CenterIn the event this information is protected by the Federal Confidentiality of Alcohol and Drug Abuse Patient Records regulations: The Federal rules restrict any use of the information to criminally investigate or prosecute any alcohol or drug abuse patient.[facility] CenterIn the event this information is protected by the Federal Confidentiality of Alcohol and Drug Abuse Patient Records regulations: The Federal rules restrict any use of the information to criminally investigate or prosecute any alcohol or drug abuse patient.[facility] CenterIn the event this information is protected by the Federal Confidentiality of Alcohol and Drug Abuse Patient Records regulations: The Federal rules restrict any use of the information to criminally investigate or prosecute any alcohol or drug abuse patient.[facility] CenterIn the event this information is protected by the Federal Confidentiality of Alcohol and Drug Abuse Patient Records regulations: The Federal rules restrict any use of the information to criminally investigate or prosecute any alcohol or drug abuse patient.[facility] CenterIn the event this information is protected by the Federal Confidentiality of Alcohol and Drug Abuse Patient Records regulations: The Federal rules restrict any use of the information to criminally investigate or prosecute any alcohol or drug abuse patient.[facility] CenterIn the event this information is protected by the Federal Confidentiality of Alcohol and Drug Abuse Patient Records regulations: The Federal rules restrict any use of the information to criminally investigate or prosecute any alcohol or drug abuse patient.[facility] CenterIn the event this information is protected by the Federal Confidentiality of Alcohol and Drug Abuse Patient Records regulations: The Federal rules restrict any use of the information to criminally investigate or prosecute any alcohol or drug abuse patient.[facility] CenterIn the event this information is protected by the Federal Confidentiality of Alcohol and Drug Abuse Patient Records regulations: The Federal rules restrict any use of the information to criminally investigate or prosecute any alcohol or drug abuse patient.[facility] CenterIn the event this information is protected by the Federal Confidentiality of Alcohol and Drug Abuse Patient Records regulations: The Federal rules restrict any use of the information to criminally investigate or prosecute any alcohol or drug abuse patient.[facility] CenterIn the event this information is protected by the Federal Confidentiality of Alcohol and Drug Abuse Patient Records regulations: The Federal rules restrict any use of the information to criminally investigate or prosecute any alcohol or drug abuse patient.[facility] CenterIn the event this information is protected by the Federal Confidentiality of Alcohol and Drug Abuse Patient Records regulations: The Federal rules restrict any use of the information to criminally investigate or prosecute any alcohol or drug abuse patient.[facility] CenterIn the event this information is protected by the Federal Confidentiality of Alcohol and Drug Abuse Patient Records regulations: The Federal rules restrict any use of the information to criminally investigate or prosecute any alcohol or drug abuse patient.[facility] CenterIn the event this information is protected by the Federal Confidentiality of Alcohol and Drug Abuse Patient Records regulations: The Federal rules restrict any use of the information to criminally investigate or prosecute any alcohol or drug abuse patient.[facility] CenterIn the event this information is protected by the Federal Confidentiality of Alcohol and Drug Abuse Patient Records regulations: The Federal rules restrict any use of the information to criminally investigate or prosecute any alcohol or drug abuse patient.[facility] CenterIn the event this information is protected by the Federal Confidentiality of Alcohol and Drug Abuse Patient Records regulations: The Federal rules restrict any use of the information to criminally investigate or prosecute any alcohol or drug abuse patient.[facility] CenterIn the event this information is protected by the Federal Confidentiality of Alcohol and Drug Abuse Patient Records regulations: The Federal rules restrict any use of the information to criminally investigate or prosecute any alcohol or drug abuse patient.[facility] CenterIn the event this information is protected by the Federal Confidentiality of Alcohol and Drug Abuse Patient Records regulations: The Federal rules restrict any use of the information to criminally investigate or prosecute any alcohol or drug abuse patient.[facility] CenterIn the event this information is protected by the Federal Confidentiality of Alcohol and Drug Abuse Patient Records regulations: The Federal rules restrict any use of the information to criminally investigate or prosecute any alcohol or drug abuse patient.[facility] CenterIn the event this information is protected by the Federal Confidentiality of Alcohol and Drug Abuse Patient Records regulations: The Federal rules restrict any use of the information to criminally investigate or prosecute any alcohol or drug abuse patient.[facility] CenterIn the event this information is protected by the Federal Confidentiality of Alcohol and Drug Abuse Patient Records regulations: The Federal rules restrict any use of the information to criminally investigate or prosecute any alcohol or drug abuse patient.[facility] CenterIn the event this information is protected by the Federal Confidentiality of Alcohol and Drug Abuse Patient Records regulations: The Federal rules restrict any use of the information to criminally investigate or prosecute any alcohol or drug abuse patient.[facility] CenterIn the event this information is protected by the Federal Confidentiality of Alcohol and Drug Abuse Patient Records regulations: The Federal rules restrict any use of the information to criminally investigate or prosecute any alcohol or drug abuse patient.[facility] CenterIn the event this information is protected by the Federal Confidentiality of Alcohol and Drug Abuse Patient Records regulations: The Federal rules restrict any use of the information to criminally investigate or prosecute any alcohol or drug abuse patient.[facility] CenterIn the event this information is protected by the Federal Confidentiality of Alcohol and Drug Abuse Patient Records regulations: The Federal rules restrict any use of the information to criminally investigate or prosecute any alcohol or drug abuse patient.[facility] CenterIn the event this information is protected by the Federal Confidentiality of Alcohol and Drug Abuse Patient Records regulations: The Federal rules restrict any use of the information to criminally investigate or prosecute any alcohol or drug abuse patient.[facility] CenterIn the event this information is protected by the Federal Confidentiality of Alcohol and Drug Abuse Patient Records regulations: The Federal rules restrict any use of the information to criminally investigate or prosecute any alcohol or drug abuse patient.[facility] CenterIn the event this information is protected by the Federal Confidentiality of Alcohol and Drug Abuse Patient Records regulations: The Federal rules restrict any use of the information to criminally investigate or prosecute any alcohol or drug abuse patient.[facility] CenterIn the event this information is protected by the Federal Confidentiality of Alcohol and Drug Abuse Patient Records regulations: The Federal rules restrict any use of the information to criminally investigate or prosecute any alcohol or drug abuse patient.[facility] CenterIn the event this information is protected by the Federal Confidentiality of Alcohol and Drug Abuse Patient Records regulations: The Federal rules restrict any use of the information to criminally investigate or prosecute any alcohol or drug abuse patient.[facility] CenterIn the event this information is protected by the Federal Confidentiality of Alcohol and Drug Abuse Patient Records regulations: The Federal rules restrict any use of the information to criminally investigate or prosecute any alcohol or drug abuse patient.[facility] CenterIn the event this information is protected by the Federal Confidentiality of Alcohol and Drug Abuse Patient Records regulations: The Federal rules restrict any use of the information to criminally investigate or prosecute any alcohol or drug abuse patient.[facility] CenterIn the event this information is protected by the Federal Confidentiality of Alcohol and Drug Abuse Patient Records regulations: The Federal rules restrict any use of the information to criminally investigate or prosecute any alcohol or drug abuse patient.[facility] CenterIn the event this information is protected by the Federal Confidentiality of Alcohol and Drug Abuse Patient Records regulations: The Federal rules restrict any use of the information to criminally investigate or prosecute any alcohol or drug abuse patient.[facility] CenterIn the event this information is protected by the Federal Confidentiality of Alcohol and Drug Abuse Patient Records regulations: The Federal rules restrict any use of the information to criminally investigate or prosecute any alcohol or drug abuse patient.[facility] CenterIn the event this information is protected by the Federal Confidentiality of Alcohol and Drug Abuse Patient Records regulations: The Federal rules restrict any use of the information to criminally investigate or prosecute any alcohol or drug abuse patient.[facility] CenterIn the event this information is protected by the Federal Confidentiality of Alcohol and Drug Abuse Patient Records regulations: The Federal rules restrict any use of the information to criminally investigate or prosecute any alcohol or drug abuse patient.[facility] CenterIn the event this information is protected by the Federal Confidentiality of Alcohol and Drug Abuse Patient Records regulations: The Federal rules restrict any use of the information to criminally investigate or prosecute any alcohol or drug abuse patient.[facility] CenterIn the event this information is protected by the Federal Confidentiality of Alcohol and Drug Abuse Patient Records regulations: The Federal rules restrict any use of the information to criminally investigate or prosecute any alcohol or drug abuse patient.[facility] CenterIn the event this information is protected by the Federal Confidentiality of Alcohol and Drug Abuse Patient Records regulations: The Federal rules restrict any use of the information to criminally investigate or prosecute any alcohol or drug abuse patient.[facility] CenterIn the event this information is protected by the Federal Confidentiality of Alcohol and Drug Abuse Patient Records regulations: The Federal rules restrict any use of the information to criminally investigate or prosecute any alcohol or drug abuse patient.[facility] CenterIn the event this information is protected by the Federal Confidentiality of Alcohol and Drug Abuse Patient Records regulations: The Federal rules restrict any use of the information to criminally investigate or prosecute any alcohol or drug abuse patient.[facility] CenterIn the event this information is protected by the Federal Confidentiality of Alcohol and Drug Abuse Patient Records regulations: The Federal rules restrict any use of the information to criminally investigate or prosecute any alcohol or drug abuse patient.[facility] CenterIn the event this information is protected by the Federal Confidentiality of Alcohol and Drug Abuse Patient Records regulations: The Federal rules restrict any use of the information to criminally investigate or prosecute any alcohol or drug abuse patient.[facility] CenterIn the event this information is protected by the Federal Confidentiality of Alcohol and Drug Abuse Patient Records regulations: The Federal rules restrict any use of the information to criminally investigate or prosecute any alcohol or drug abuse patient.[facility] CenterIn the event this information is protected by the Federal Confidentiality of Alcohol and Drug Abuse Patient Records regulations: The Federal rules restrict any use of the information to criminally investigate or prosecute any alcohol or drug abuse patient.[facility] CenterIn the event this information is protected by the Federal Confidentiality of Alcohol and Drug Abuse Patient Records regulations: The Federal rules restrict any use of the information to criminally investigate or prosecute any alcohol or drug abuse patient.[facility] CenterIn the event this information is protected by the Federal Confidentiality of Alcohol and Drug Abuse Patient Records regulations: The Federal rules restrict any use of the information to criminally investigate or prosecute any alcohol or drug abuse patient.[facility] CenterIn the event this information is protected by the Federal Confidentiality of Alcohol and Drug Abuse Patient Records regulations: The Federal rules restrict any use of the information to criminally investigate or prosecute any alcohol or drug abuse patient.[facility] CenterIn the event this information is protected by the Federal Confidentiality of Alcohol and Drug Abuse Patient Records regulations: The Federal rules restrict any use of the information to criminally investigate or prosecute any alcohol or drug abuse patient.[facility] Reason for Visit (unrecogniz ed section and content) Reason Comments Results Reason Comments urine culture Reason Onset Date Comments Refill Request 11/28/2021 Reason Comments Follow Up Specialty Diagnoses / Procedures Referred By Bella t Referred To Contact Family Practice / FAMILY MEDICINE Diagnoses 4 month f/u Procedures 4C EST Kristen Eugene PA-C [address] [place] [address] Carl Encarnacion MD [address] [place] [address] Referral ID Status Reason Start Date Expiration Date V isits Requested Visits Authorized [id number] New Request 12/12/2021 03/12/2022 1 1 Reason [...] EA 15 MIN. Kristen Eugene PA-C [address] [place] [address] [facility] [address] [place] [address] Referral ID Status Reason Start Date Expiration Date Visits Requested Visits Authorized [id number] Authorized Auto-Generat ed Referral 08/09/2022 08/08/2023 20 20 Reason Onset Date Comments Refill Request 02/08/2023 Reason Comments Referral Information Reason Comments Pre op instructions Reason Comments Results Reason Comments Appointment Reason Comments Patient Update Reason Comments Anesthesia Consult Preop evaluation Reason Comments home health calling Reason Comments Post Op Reason Comments Nursing Plan of Care Reason Comments Boiling Off Winder - Other Introduction Reason Comments New Patient Specialty Diagnoses / Procedures Referred By Contac t Referred To Contact Diagnoses 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 (HCC) Procedures CONSULT TO HEMATOLOGY/ONCOLOGY OFFICE/OUTPATIENT NEW HIGH MDM 60-74 MINUTES Annmarie Mendoza, REBECCA.FOOD PREPARER [address] [place] [address] Wilmar Forbes, DO [address] [place] [address] Referral ID Status Reason Start Date Expiration Date Visits Requested Visits Authorized [id number] Pending Review PCP Requested Referral 05/03/2023 05/02/2024 1 1 Reason Comments First Time Treatment Education Carboplat in Reason Comments AVS 06/02/23, CHEMO START Reason Onset Date Comments Refill Request 06/07/2023 Reason Comments Boiling Off Winder - Other Orders Reason Comments Boiling Off Winder - Other C1D1 Post Treat ment Call (Carboplatin) Reason Comments Medication Problem Reason Comments Radiology CT Specialty Diagnoses / Procedures Referred By Contac t Referred To Contact CT IMAGING Diagnoses Pelvic mass Procedures CT ABD/PEL W IVCON CT ABD & PELVIS W/CONTRAST Carl Encarnacion MD [address] [place] [address] [place] [address] Referral ID Status Reason Start Date Expiration Date V isits Requested Visits Authorized [id number] Closed Auto-Generate d Referral 02/26/2023 03/27/2024 1 1 Reason Comments Boiling Off Winder - Other Toxicity Check (Carboplatin) Reason Comments Established Patient Reason Onset Date Comments Refill Request 10/07/2023 Reason Comments Hospital Admission Reason Onset Date Comments Refill Request 12/06/2023 Reason Comments [facility]-verbal ordes requeted Reason Comments ER F/U Seen 11/22 at [facility] for fall at home and admitted for Rhabdomyolysis Reason Comments Patient Update from PT [facility] Reason Comments Ext / Discharge Summary Reason Onset Date Comments Refill Request 01/04/2024 Reason Comments OT Update Reason Comments Outside Heart Cath Reason Onset Date Comments Refill Request 02/15/2024 Care Teams (unrecognized sec tion and content) Crossword Puzzle Maker Relationship Specialty Start Date End Date Carl Encarnacion MD [address] [place] [address] PCP - General Family Practice 03/12/15 Crossword Puzzle Maker Relationship Specialty Start Date End Date Carl Encarnacion MD [address] [place] [address] PCP - General Family Practice 03/12/15 Crossword Puzzle Maker Relationship Specialty Start Date End Date Carl Encarnacion MD [address] [place] [address] PCP - General Family Practice 03/12/15 Crossword Puzzle Maker Relationship Specialty Start Date End Date Carl Encarnacion MD [address] [place] [address] PCP - General Family Practice 03/12/15 Crossword Puzzle Maker Relationship Specialty Start Date End Date Carl Encarnacion MD [address] [place] [address] PCP - General Family Practice 03/12/15 Crossword Puzzle Maker Relationship Specialty Start Date End Date Carl Encarnacino MD [address] [facility] [place] [address] PCP - General Family Medicine 03/12/15 Crossword Puzzle Maker Relationship Specialty Start Date End Date Carl Encarnacion MD [address] [facility] [place] [place] [address] PCP - General Family Medicine 03/12/15 Crossword Puzzle Maker Relationship Specialty Start Date End Date Carl Encarnacion MD [facility] [place] [place] [address] PCP - General Family Medicine 03/12/15 Crossword Puzzle Maker Relationship Specialty Start Date End Date Carl Encarnacion MD [address] [place] [address], [place] [address] PCP - General Family Medicine 03/12/15 Crossword Puzzle Maker Relationship Specialty Start Date End Date Carl Encarnacion MD [address] [place] [address], [place] [address] PCP - General Family Medicine 03/12/15 Crossword Puzzle Maker Relationship Specialty Start Date End Date aCrl Encarnacion MD [facility] [place] [place] [address] PCP - General Family Medicine 03/12/15 Crossword Puzzle Maker Relationship Specialty Start Date End Date Carl Encarnacion MD [facility] [place] [place] [address] PCP - General Family Medicine 03/12/15 Crossword Puzzle Maker Relationship Specialty Start Date End Date Carl Encarnacion MD [facility] [place] [place] [address] PCP - General Family Medicine 03/12/15 Crossword Puzzle Maker Relationship Specialty Start Date End Date Carl Encarnacion MD [facility] [place] [place] [address] PCP - General Family Medicine 03/12/15 Crossword Puzzle Maker Relationship Specialty Start Date End Date Carl Encarnacion MD [address] [facility] [place] [place] [address] PCP - General Family Medicine 03/12/15 Team Status: Active Member Role Status Dates Raciel Zuleta Family Provider Active Dr. Carl Encarnacion MD Primary Care Provider Active Team Status: Inactive Member Role Status Dates Dr. Carl Encarnacion MD Primary Care Provider Active Dr. Abdiel Shakih , DO Emergency Provider Active Crossword Puzzle Maker Relationship Specialty Start Date End Date Calr Encarnacion MD [address] [place] [address] PCP - General Family Medicine 03/12/15 Crossword Puzzle Maker Relationship Specialty Start Date End Date Carl Encarnacion MD [address] [place] [address] PCP - General Family Medicine 03/12/15 Crossword Puzzle Maker Relationship Specialty Start Date End Date Carl Encarnacion MD [address] [facility] [place] [address] PCP - General Family Medicine 03/12/15 Crossword Puzzle Maker Relationship Specialty Start Date End Date Carl Enacrnacion MD [address] [facility] [place] [address] PCP - General Family Medicine 03/12/15 Crossword Puzzle Maker Relationship Specialty Start Date End Date Carl Encarnacion MD [address] [facility] [place] [address] PCP - General Family Medicine 03/12/15 Team Status: Inactive Member Role Status Dates Dr. Carl Encarnacion MD Primary Care Provider Active Dr. Abdiel Shaikh , DO Attending Provider, Emergency P rotal Active Team Status: Inactive Member Role Status Dates Dr. Carl Encarnacion MD Primary Care Provider Active Dr. Carl Hawkins DO Attending Provider, Referring P rovider Active Crossword Puzzle Maker Relationship Specialty Start Date End Date Carl Encarnacion MD [address] [place] [address] PCP - General Family Medicine 03/12/15 Crossword Puzzle Maker Relationship Specialty Start Date End Date Carl Encarnacion MD [address] [place] [address] PCP - General Family Medicine 03/12/15 Crossword Puzzle Maker Relationship Specialty Start Date End Date Carl Encarnacion MD [address] [place] [address] PCP - General Family Medicine 03/12/15 Crossword Puzzle Maker Relationship Specialty Start Date End Date Carl Encarnacion MD [address] [place] [address] PCP - General Family Medicine 03/12/15 Crossword Puzzle Maker Relationship Specialty Start Date End Date Carl Encarnacion MD [address] [place] [address] PCP - General Family Medicine 03/12/15 Crossword Puzzle Maker Relationship Specialty Start Date End Date Carl Encarnacion MD [address] [place] [address] PCP - General Family Medicine 03/12/15 Crossword Puzzle Maker Relationship Specialty Start Date End Date Carl Encarnacion MD [address] [place] [address] PCP - General Family Medicine 03/12/15 Crossword Puzzle Maker Relationship Specialty Start Date End Date Carl Encarnacion MD [address] [place] [address] PCP - General Family Medicine 03/12/15 Crossword Puzzle Maker Relationship Specialty Start Date End Date Carl Encarnacion MD [address] [place] [address] PCP - General Family Medicine 03/12/15 Crossword Puzzle Maker Relationship Specialty Start Date End Date Carl Encarnacion MD [address] [place] [address] PCP - General Family Medicine 03/12/15 Crossword Puzzle Maker Relationship Specialty Start Date End Date Carl Encarnacion MD [address] [place] [address] PCP - General Family Medicine 03/12/15 Crossword Puzzle Maker Relationship Specialty Start Date End Date Carl Encarnacion MD [address] [place] [address] PCP - General Family Medicine 03/12/15 Crossword Puzzle Maker Relationship Specialty Start Date End Date Carl Encarnacion MD [address] [place] [address] PCP - General Family Medicine 03/12/15 Crossword Puzzle Maker Relationship Specialty Start Date End Date Carl Encarnacion MD [address] [place] [address] PCP - General Family Medicine 03/12/15 Crossword Puzzle Maker Relationship Specialty Start Date End Date Carl Encarnacion MD [address] [place] [address] PCP - General Family Medicine 03/12/15 Crossword Puzzle Maker Relationship Specialty Start Date End Date Carl Encarnacion MD [address] [place] [address] PCP - General Family Medicine 03/12/15 Korin Mantilla RN Specialty Boiling Off Winder Oncology 06/07/23 Wilmar Forbes DO [address] [place] [address] Hematology/Oncology 06/07/23 Crossword Puzzle Maker Relationship Specialty Start Date End Date Carl Encarnacion MD [address] [facility] [place] [address] PCP - General Family Medicine 03/12/15 Korin Mantilla RN Specialty Boiling Off Winder Oncology 06/07/23 Wilmar Forbes DO [address] [place] [address] Hematology/Oncology 06/07/23 Crossword Puzzle Maker Relationship Specialty Start Date End Date Carl Encarnacion MD [address] [facility] [place] [place] [address] PCP - General Family Medicine 03/12/15 Korin Mantilla RN Specialty Boiling Off Winder Oncology 06/07/23 Wilmar Forbes DO [address] [facility] [address] Hematology/Oncology 06/07/23 Crossword Puzzle Maker Relationship Specialty Start Date End Date Carl Encarnacion MD [address] [facility] [place] [place] [address] PCP - General Family Medicine 03/12/15 Koirn Mantilla RN Specialty Boiling Off Winder Oncology 06/07/23 Wilmar Forbes DO [address] [facility] [place] [address] Hematology/Oncology 06/07/23 Crossword Puzzle Maker Relationship Specialty Start Date End Date Carl Encarnacion MD [address] [place] [address] PCP - General Family Medicine 03/12/15 Crossword Puzzle Maker Relationship Specialty Start Date End Date Carl Encarnacion MD [address] [place] [address] PCP - General Family Medicine 03/12/15 Crossword Puzzle Maker Relationship Specialty Start Date End Date Carl Encarnacion MD [address] [place] [address] PCP - General Family Medicine 03/12/15 Crossword Puzzle Maker Relationship Specialty Start Date End Date Carl Encarnacion MD [address] [place] [address] PCP - General Family Medicine 03/12/15 Korin Mantilla RN Specialty Boiling Off Winder Oncology 06/07/23 Wilmar Forbes DO [address] [place] [address] Hematology/Oncology 06/07/23 Crossword Puzzle Maker Relationship Specialty Start Date End Date Carl Encarnacion MD [address] [place] [address] PCP - General Family Medicine 03/12/15 Korin Mantilla RN Specialty Boiling Off Winder Oncology 06/07/23 Wilmar Forbes DO [address] [place] [address] Hematology/Oncology 06/07/23 Crossword Puzzle Maker Relationship Specialty Start Date End Date Carl Encarnacion MD [address] [place] [address] PCP - General Family Medicine 03/12/15 Korin Mantilla RN Specialty Boiling Off Winder Oncology 06/07/23 Wilmar Forbes DO [address] [place] [place] [address] Hematology/Oncology 06/07/23 Crossword Puzzle Maker Relationship Specialty Start Date End Date Carl Encarnacion MD [address] [facility] [place] [address] PCP - General Family Medicine 03/12/15 Korin Mantilla RN Specialty Boiling Off Winder Oncology 06/07/23 Wilmar Forbes DO [address] [place] [address] Hematology/Oncology 06/07/23 Crossword Puzzle Maker Relationship Specialty Start Date End Date Carl Encarnacion MD [address] [facility] [place] [address] PCP - General Family Medicine 03/12/15 Korin Mantilla RN Specialty Boiling Off Winder Oncology 06/07/23 Wilmar Forbes DO [address] [place] [place] [address] Hematology/Oncology 06/07/23 Team Status: Active Member Role Status Dates Dr. Carl Encarnacion MD Primary Care Provider Active Dr. Smith Ho MD Emergency Provider Active Dr. Kelby Aguilar DO Admit Provider, Attending Provider Active Crossword Puzzle Maker Relationship Specialty Start Date End Date Carl Encarnacion MD [address] [facility] [place] [address] PCP - General Family Medicine 03/12/15 Korin Mantilla RN Specialty Boiling Off Winder Oncology 06/07/23 Wilmar Forbes DO [address] [place] [address] Hematology/Oncology 06/07/23 Team Status: Active Member Role [...] , DO Admit Provider, Attending Provider Active Crossword Puzzle Maker Relationship Specialty Start Date End Date Carl Encarnacion MD [address] [place] [address] PCP - General Family Medicine 03/12/15 Korin Mantilla RN Specialty Boiling Off Winder Oncology 06/07/23 Wilmar Forbes DO [address] [place] [address] Hematology/Oncology 06/07/23 Crossword Puzzle Maker Relationship Specialty Start Date End Date Carl Encarnacion MD [address] [place] [address] PCP - General Family Medicine 03/12/15 Korin Mantilla RN Specialty Boiling Off Winder Oncology 06/07/23 Wilmar Forbes DO [address] [place] [address] Hematology/Oncology 06/07/23 Crossword Puzzle Maker Relationship Specialty Start Date End Date Carl Encarnacion MD [address] [place] [address] PCP - General Family Medicine 03/12/15 Korin Mantilla RN Specialty Boiling Off Winder Oncology 06/07/23 Wilmar Forbes DO [address] [facility], [place] [address] Hematology/Oncology 06/07/23 Crossword Puzzle Maker Relationship Specialty Start Date End Date Carl Encarnacion MD [address] [facility] [place], [place] [address] PCP - General Family Medicine 03/12/15 Korin Mantilla RN Specialty Boiling Off Winder Oncology 06/07/23 Wilmar Forbes DO [address] [facility], [place] [address] Hematology/Oncology 06/07/23 Crossword Puzzle Maker Relationship Specialty Start Date End Date Carl Encarnacion MD [address] [facility] [place], [place] [address] PCP - General Family Medicine 03/12/15 Team Status: Active Member Role Status Dates Dr. Carl Encarnacion MD Primary Care Provider Active Start: August 07, 2024 Lasha VASQUEZ MD Attending Provider Active Start: August 07, 2024 Team Status: Inactive Member Role Status Dates Dr. Carl Encarnacion MD Primary Care Provider Active Start: August 11, 2024 End: August 11, 2024 Savi Tavares BULL WHEEL WORKER, BULL WHEEL WORKER-C Attending Provider Active Start: August 11, 2024 [...] 2024 End: September 27, 2024 Savi Tavares NP BULL WHEEL WORKER-C Attending Provider Active Start: September 27, 2024 End: September 27, 2024 Team Status: Active Member Role Status Dates Dr. Carl Encarancion MD Primary Care Provider Active Start: September [...] November 02, 2024 End: November 02, 2024 Team Status: Active Member Role/Relationship Status Dates Raciel Zuleta Family Provider Active Dr. Carl Encarnacion MD Primary Care Provider Active Team Status: Inactive Member Role/Relationship Status Dates Dr. Carl Encarnacion MD Primary Care Provider Active Start: October 30, 2024 End: October 30, 2024 Lasha VASQUEZ MD Attending Provider Active Start: October 30, 2024 End: October 30, 2024 Team Status: Inactive Member Role/Relationship Status Dates Dr. Carl Encarnacion MD Primary Care Provider Active Start: November 02, 2024 End: November 02, 2024 Lasha VASQUEZ MD Attending Provider Active Start: November 02, 2024 End: November 02, 2024 Team Status: Inactive Member Role/Relationship Status Dates Dr. Carl Encarnacion MD Primary Care Provider Active Start: November 07, 2024 End: November 07, 2024 Dr. Lasha Pro MD Attending Provider Active Start: November 07, 2024 End: November 07, 2024 Team Status: Inactive Member Role/Relationship Status Dates Dr. Carl Encarnacion MD Primary Care Provider Active Start: November 17, 2024 End: November 17, 2024 Savi Tavares NP BULL WHEEL WORKER-C Attending Provider Active Start: November 17, 2024 End: November 17, 2024 Team Status: Inactive Member Role/Relationship Status Dates Dr. Carl Encarnacion MD Primary Care Provider Active Start: November 22, 2024 End: November 22, 2024 Savi Tavares NP BULL WHEEL WORKER-C Attending Provider Active Start: November 22, 2024 End: November 22, 2024 Team Status: Inactive Member Role/Relationship Status Dates Dr. Carl Encarnacion MD Primary Care Provider Active Start: December 04, 2024 End: December 04, 2024 Dr. Carl Encarnacion MD Referring Provider Active Start: December 04, 2024 End: December 04, 2024 Dr. Ronen Espinoza DO Attending Provider Active Start: December 04, 2024 End: December 04, 2024 Team Status: Inactive Member Role/Relationship Status Dates Dr. Carl Encarnacion MD Primary Care Provider Active Start: December 04, 2024 End: December 04, 2024 Dr. Hector Anderson MD Attending Provider Active S tart: December 04, 2024 End: December 04, 2024 Team Status: Inactive Member Role/Relationship Status Dates Dr. Carl Encarnacion MD Primary Care Provider Active Start: December 05, 2024 End: December 05, 2024 Lasha VASQUEZ MD Attending Provider Active Start: December 05, 2024 End: December 05, 2024 Team Status: Inactive Member Role/Relationship Status Dates Dr. Carl Encarnacion MD Primary Care Provider Active Start: December 05, 2024 End: December 05, 2024 Savi Tavares NP, BULL WHEEL WORKER-C Attending Provider Active Start: December 05, 2024 End: December 05, 2024 Team Status: Inactive Member Role/Relationship Status Dates Dr. Carl Encarnacion MD Primary Care Provider Active Start: December 11, 2024 End: December 11, 2024 Lasha VASQUEZ MD Attending Provider Active Start: December 11, 2024 End: December 11, 2024 Team Status: Inactive Member Role/Relationship Status Dates Dr. Carl Encarnacion MD Primary Care Provider Active Start: January 09, 2025 End: January 09, 2025 Dr. Lasha Pro MD Attending Provider Active Start: January 09, 2025 End: January 09, 2025 Team Status: Active Member Role/Relationship Status Dates Dr. Carl Encarnacion MD Primary Care Provider Active Start: January 18, 2025 Lasha VASQUEZ MD Attending Provider Active Start: January 18, 2025 Team Status: Active Member Role/Relationship Status Dates Dr. Carl Encarnacion MD Primary Care Provider Active Start: January 22, 2025 Lasha VASQUEZ MD Attending Provider Active Start: January 22, 2025 Team Status: Active Member Role/Relationship Status Dates Dr. Carl Encarnacion MD Primary Care Provider Active Start: February 12, 2025 Lasha VASQUEZ MD Attending Provider Active Start: February 12, 2025 Team Status: Active Member Role/Relationship Status Dates Dr. Carl Encarnacion MD Primary Care Provider Active Start: February 19, 2025 Lasha VASQUEZ MD Attending Provider Active Start: February 19, 2025 Team Status: Inactive Member Role/Relationship Status Dates Dr. Carl Encarnacion MD Primary Care Provider Active Start: November 07, 2024 End: November 07, 2024 Dr. Lasha Pro MD Attending Provider Active Start: November 07, 2024 End: November 07, 2024 Team Status: Inactive Member Role/Relationship Status Dates Dr. Carl Encarnacion MD Primary Care Provider Active Start: November 17, 2024 End: November 17, 2024 Savi Tavares NP, [employer] Attending Provider Active Start: November 17, 2024 End: November 17, 2024 Team Status: Inactive Member Role/Relationship Status Dates Dr. Carl Encarnacion MD Primary Care Provider Active Start: November 22, 2024 End: November 22, 2024 Savi Tavares NP, [employer] Attending Provider Active Start: November 22, 2024 End: November 22, 2024 Team Status: Inactive Member Role/Relationship Status Dates Dr. Carl Encarnacion MD Primary Care Provider Active Start: December 04, 2024 End: December 04, 2024 Dr. Carl Encarnacion MD Referring Provider Active Start: December 04, 2024 End: December 04, 2024 Dr. Ronen Espinoza DO Attending Provider Active Start: December 04, 2024 End: December 04, 2024 Team Status: Inactive Member Role/Relationship Status Dates Dr. Carl Encarnacion MD Primary Care Provider Active Start: December 04, 2024 End: December 04, 2024 Dr. Hector Anderson MD Attending Provider Active S tart: December 04, 2024 End: December 04, 2024 Team Status: Inactive Member Role/Relationship Status Dates Dr. Carl Encarnacion MD Primary Care Provider Active Start: December 05, 2024 End: December 05, 2024 Lasha VASQUEZ MD Attending Provider Active Start: December 05, 2024 End: December 05, 2024 Team Status: Inactive Member Role/Relationship Status Dates Dr. Carl Encarnacion MD Primary Care Provider Active Start: December 05, 2024 End: December 05, 2024 Savi Tavares NP [employer] Attending Provider Active Start: December 05, 2024 End: December 05, 2024 Team Status: Inactive Member Role/Relationship Status Dates Dr. Carl Encarnacion MD Primary Care Provider Active Start: December 11, 2024 End: December 11, 2024 Lasha VASQUEZ MD Attending Provider Active Start: December 11, 2024 End: December 11, 2024 Team Status: Inactive Member Role/Relationship Status Dates Dr. Carl Encarnacion MD Primary Care Provider Active Start: December 11, 2024 End: December 11, 2024 Savi Tavares NP [employer] Attending Provider Active Start: December 11, 2024 End: December 11, 2024 Team Status: Inactive Member Role/Relationship Status Dates Dr. Carl Encarnacion MD Primary Care Provider Active Start: January 09, 2025 End: January 09, 2025 Dr. Lasha Pro MD Attending Provider Active Start: January 09, 2025 End: January 09, 2025 Team Status: Active Member Role/Relationship Status Dates Dr. Carl Encarnacion MD Primary Care Provider Active Start: January 18, 2025 Lasha VASQUEZ MD Attending Provider Active Start: January 18, 2025 Team Status: Active Member Role/Relationship Status Dates Dr. Carl Encarnacion MD Primary Care Provider Active Start: January 22, 2025 Lasha VASQUEZ MD Attending Provider Active Start: January 22, 2025 Team Status: Active Member Role/Relationship Status Dates Dr. Carl Encarnacion MD Primary Care Provider Active Start: February 12, 2025 Lasha VASQUEZ MD Attending Provider Active Start: February 12, 2025 Team Status: Active Member Role/Relationship Status Dates Dr. Carl Encarnacion MD Primary Care Provider Active Start: February 19, 2025 Lasha VASQUEZ MD Attending Provider Active Start: February 19, 2025 Team Status: Active Member Role/Relationship Status Dates Dr. Carl Encarnacion MD Primary Care Provider Active Start: March 05, 2025 Lasha VASQUEZ MD Attending Provider Active Start: March 05, 2025 Team Status: Inactive Member Role/Relationship Status Dates Dr. Carl Encarnacion MD Primary Care Provider Active Start: November 22, 2024 End: November 22, 2024 Savi Tavares B[employer] WORKER [employer]-C Attending Provider Active Start: November 22, 2024 End: November 22, 2024 Team Status: Inactive Member Role/Relationship Status Dates Dr. Carl Encarnacion MD Primary Care Provider Active Start: December 04, 2024 End: December 04, 2024 Dr. Carl Encarnacion MD Referring Provider Active Start: December 04, 2024 End: December 04, 2024 Dr. Ronen Espinoza DO Attending Provider Active Start: December 04, 2024 End: December 04, 2024 Team Status: Inactive Member Role/Relationship Status Dates Dr. Carl Encarnacion MD Primary Care Provider Active Start: December 04, 2024 End: December 04, 2024 Dr. Hector Anderson MD Attending Provider Active S tart: December 04, 2024 End: December 04, 2024 Team Status: Inactive Member Role/Relationship Status Dates Dr. Carl Encarnacion MD Primary Care Provider Active Start: December 05, 2024 End: December 05, 2024 Lasha VASQUEZ MD Attending Provider Active Start: December 05, 2024 End: December 05, 2024 Team Status: Inactive Member Role/Relationship Status Dates Dr. Carl Encarnacion MD Primary Care Provider Active Start: December 05, 2024 End: December 05, 2024 Savi Tavares NP [employer] Attending Provider Active Start: December 05, 2024 End: December 05, 2024 Team Status: Inactive Member Role/Relationship Status Dates Dr. Carl Encarnacion MD Primary Care Provider Active Start: December 11, 2024 End: December 11, 2024 Lasha VASQUEZ MD Attending Provider Active Start: December 11, 2024 End: December 11, 2024 Team Status: Inactive Member Role/Relationship Status Dates Dr. Carl Encarnacion MD Primary Care Provider Active Start: December 11, 2024 End: December 11, 2024 Savi Tavares B[employer] WHEEL WORKER, [employer]-C Attending Provider Active Start: December 11, 2024 End: December 11, 2024 Team Status: Inactive Member Role/Relationship Status Dates Dr. Carl Encarnacion MD Primary Care Provider Active Start: January 09, 2025 End: January 09, 2025 Dr. Lasha Pro MD Attending Provider Active Start: January 09, 2025 End: January 09, 2025 Team Status: Active Member Role/Relationship Status Dates Dr. Carl Encarnacion MD Primary Care Provider Active Start: January 18, 2025 Lasha VASQUEZ MD Attending Provider Active Start: January 18, 2025 Team Status: Active Member Role/Relationship Status Dates Dr. Carl Encarnacion MD Primary Care Provider Active Start: January 22, 2025 Lasha VASQUEZ MD Attending Provider Active Start: January 22, 2025 Team Status: Active Member Role/Relationship Status Dates Dr. Carl Encarnacion MD Primary Care Provider Active Start: February 12, 2025 Lasha VASQUEZ MD Attending Provider Active Start: February 12, 2025 Team Status: Active Member Role/Relationship Status Dates Dr. Carl Encarnacion MD Primary Care Provider Active Start: February 19, 2025 Lasha VASQUEZ MD Attending Provider Active Start: February 19, 2025 Team Status: Inactive Member Role/Relationship Status Dates Dr. Carl Encarnacion MD Primary Care Provider Active Start: March 01, 2025 End: March 01, 2025 DANIELLE Mejia Attending Provider Active St art: March 01, 2025 End: March 01, 2025 Team Status: Active Member Role/Relationship Status Dates Dr. Carl Encarnacion MD Primary Care Provider Active Start: March 05, 2025 Lasha VASQUEZ MD Attending Provider Active Start: March 05, 2025 Lasha VASQUEZ MD Referring Provider Active Start: March 05, 2025 Team Status: Inactive Member Role/Relationship Status Dates Dr. Carl Encarnacion MD Primary Care Provider Active Start: December 05, 2024 End: December 05, 2024 Lasha VASQUEZ MD Attending Provider Active Start: December 05, 2024 End: December 05, 2024 Team Status: Inactive Member Role/Relationship Status Dates Dr. Carl Encarnacion MD Primary Care Provider Active Start: December 05, 2024 End: December 05, 2024 Savi Tavares B[employer] WHEEL WORKER, [employer] WORKER-C Attending Provider Active Start: December 05, 2024 End: December 05, 2024 Team Status: Inactive Member Role/Relationship Status Dates Dr. Carl Encarnacion MD Primary Care Provider Active Start: December 11, 2024 End: December 11, 2024 Lasha VASQUEZ MD Attending Provider Active Start: December 11, 2024 End: December 11, 2024 Team Status: Inactive Member Role/Relationship Status Dates Dr. Carl Encarnacion MD Primary Care Provider Active Start: December 11, 2024 End: December 11, 2024 Savi Tavares B[employer] WHEEL WORKER, [employer] WORK[employer]-C Attending Provider Active Start: December 11, 2024 End: December 11, 2024 Team Status: Inactive Member Role/Relationship Status Dates Dr. Carl Encarnacion MD Primary Care Provider Active Start: January 09, 2025 End: January 09, 2025 Dr. Lasha Pro MD Attending Provider Active Start: January 09, 2025 End: January 09, 2025 Team Status: Active Member Role/Relationship Status Dates Dr. Carl Encarnacion MD Primary Care Provider Active Start: January 18, 2025 Lasha VASQUEZ MD Attending Provider Active Start: January 18, 2025 Team Status: Active Member Role/Relationship Status Dates Dr. Carl Encarnacion MD Primary Care Provider Active Start: January 22, 2025 Lasha VASQUEZ MD Attending Provider Active Start: January 22, 2025 Team Status: Active Member Role/Relationship Status Dates Dr. Carl Encarnacion MD Primary Care Provider Active Start: February 12, 2025 Lasha VASQUEZ MD Attending Provider Active Start: February 12, 2025 Team Status: Active Member Role/Relationship Status Dates Dr. Carl Encarnacion MD Primary Care Provider Active Start: February 19, 2025 Lasha VASQUEZ MD Attending Provider Active Start: February 19, 2025 Team Status: Inactive Member Role/Relationship Status Dates Dr. Carl Encranacion MD Primary Care Provider Active Start: March 01, 2025 End: March 01, 2025 DANIELLE Mejia Attending Provider Active St art: March 01, 2025 End: March 01, 2025 Team Status: Active Member Role/Relationship Status Dates Dr. Carl Encarnacion MD Primary Care Provider Active Start: March 05, 2025 Lasha VASQUEZ MD Attending Provider Active Start: March 05, 2025 Lasha VASQUEZ MD Referring Provider Active Start: March 05, 2025 Team Status: Inactive Member Role/Relationship Status Dates Dr. Carl Encarnacion MD Primary Care Provider Active Start: March 20, 2025 End: March 20, 2025 Dr. Lasha Pro MD Attending Provider Active Start: March 20, 2025 End: March 20, 2025 Goals (unrecognized section and content) Goals may [...] content) DATE CREATED AUTHOR 03/25/2023 [facility] DATE CREATED AUTHOR AUTHOR'S ORGANIZ ATION 01/22/2024 [facility] DATE CREATED AUTHOR AUTHOR'S ORGANIZ ATION 03/27/2024 [facility] DATE CREATED AUTHOR AUTHOR'S ORGANIZ ATION 04/06/2024 [facility] [place] DATE CREATED AUTHOR AUTHOR'S ORGANIZ ATION 08/21/[address] [facility] DATE CREATED AUTHOR AUTHOR'S ORGANIZ ATION 04/06/2025 [facility] FOR RECORDS PERTAINING TO PATIENTS [...] BE BASED ON THE PRIMARY CLINICAL RECORDS. [employer] [facility]. provides no warranty or guarantee of the accuracy or completeness of information in this document.
[2025-04-16 10:05] LABS: Cholesterol 150 mg/dL (<=200); Low Density Lipoprotein Calc. 53 mg/dL; Triglycerides 139 mg/dL; Very Low Density Lipoprotein 28 mg/dL (5-40); cholesterol:hdl ratio screen 2.18
== END ==
LOC: OLS.WHLEAS 05:00
PROVIDERS: PCP Family Medicine; Visit Provider Internal Medicine
DX: E78.5 Hyperlipidemia, unspecified (principal); I11.9 Hypertensive heart disease without heart failure; I35.0 Nonrheumatic aortic (valve) stenosis; E03.9 Hypothyroidism, unspecified; E88.09 Other disorders of plasma-protein metabolism, not elsewhere classified
CPT/HCPCS: 36415; 80061; 84443

== ENCOUNTER → 2025-05-28 04:03 | Outpatient (REF) | payer MEDICARE, MEDICAID, SELFPAY | LOC: OLS.WHLEAS 04:03 | PROVIDERS: PCP Family Medicine; Referring Provider Internal Medicine; Visit Provider Internal Medicine | DX: I51.81 Takotsubo syndrome (principal); I11.0 Hypertensive heart disease with heart failure; I35.0 Nonrheumatic aortic (valve) stenosis; E78.5 Hyperlipidemia, unspecified; E03.9 Hypothyroidism, unspecified; E88.09 Other disorders of plasma-protein metabolism, not elsewhere classified | CPT/HCPCS: 36415; 84443 ==

== ENCOUNTER → 2025-06-19 05:00 | Outpatient (REF) | payer MEDICARE, MEDICAID, SELFPAY ==
[2025-06-19 07:29] LABS: Hematocrit 37.5 % (37-47); Hemoglobin 12.2 g/dL (12.0-15.0); Immature Granulocytes Count 0.010 X10^3/uL (0.0-0.0); Mean Corp Hgb Conc 32.5 g/dL (32-36); Mean Corpuscular Volume 106.5 fL (81-99); Mean Platelet Vol. 10.2 fl (6.2-12.0); NRBC Flagged by Analyzer 0 % (0-5); Platelet Count 166 K/mm3 (150-450); RBC Distribution Width CV 13.1 % (11.6-14.6); RBC Distribution Width SD 51.3 fl (35.1-43.9); Red Blood Count 3.52 M/mm3 (4.2-5.4); White Blood Count 3.6 K/mm3 (4.4-11.0)
[2025-06-19 07:52] LABS: AST(SGOT) 22 U/L (<=31); Alanine Aminotransfer ALT/SGPT 11 U/L (<=34); Albumin, Serum 4.1 g/dL (3.4-4.8); Alkaline Phosphatase 47 U/L (35-104); Anion Gap 9 (5-15); BUN 14 mg/dL (4-19); BUN/Creat Ratio 20.4 RATIO (10-20); Bilirubin, Direct 0.24 mg/dL (0.00-0.30); Calcium,Total 9.3 mg/dL (7.6-11.0); Carbon Dioxide 25.9 mmol/L (21.0-32.0); Chloride 104 mmol/L (98-108); Globulin 2.6 g/dL (2.2-4.2); Glucose 80 mg/dL (70-99); Potassium 4.4 mmol/L (3.3-5.1)
== END ==
LOC: OLS.WHLEAS 05:00
PROVIDERS: PCP Family Medicine; Visit Provider Internal Medicine
DX: I51.81 Takotsubo syndrome (principal); I25.2 Old myocardial infarction; M62.561 Muscle wasting and atrophy, not elsewhere classified, right lower leg; M62.562 Muscle wasting and atrophy, not elsewhere classified, left lower leg; R78.81 Bacteremia
CPT/HCPCS: 36415; 80053; 82248; 84100; 85025

== ENCOUNTER → 2025-07-09 05:00 | Outpatient (REF) | payer MEDICARE, MEDICAID, SELFPAY ==
--- OUTSIDE RECORDS SUMMARY | 2025-07-09 03:42 | XMS RPT_ITS | CCD ---
Author Organization [facility] Team Providers Care Inside Sales Trainer Name Role Phone Carl Encarnacion MD Primary Care Provider Carl Encarnacion MD Primary Care Provider [phone] Jose Rafael RN, Korin Unavailable Unavailable Wilmar Forbes DO Unavailable JAKE MOREJON, EKATERINA Rhodes Primary Care Physician [phone] Dr. Carl Encarnacion Primary Care Provider Dr. Smith Ho Emergency Provider Dr. Kelby Aguilar Admit Provider Dr. Kelby Aguilar Attending Provider [phone] Dr. Kelby Aguilar Other Provider Carl Encarnacion MD Primary Care Provider DARCI MSN, VALLEZ FILTER OPERATOR, [facility] Primary Care Physici an Carl Encarnacion MD Primary Care Provider [phone] ELIOT CASTILLO Admitting Unavailable CARL ENCARNACION Primary [...] USMAN Jorge Admitting Unavail able SUPPAN MSN, VALLEZ FILTER OPERATOR, ESTER Primary Care Unav ailable PLUNK DO, ANNELIESE Attending Unavailable AMADEO MOREJON FACP, USMAN Jorge Admitting Unavail able SUPPAN MSN, VALLEZ FILTER OPERATOR, ESTER Primary Care Unav ailable PLUNK , ANNELIESE Attending Unavailable CARL ENCARNACION MD Attending Unavailable SUPPAN MSN, VALLEZ FILTER OPERATOR, ESTER Primary Care Unav ailable PLUNK DOANNELIESE Admitting Unavailable SUPPAN MSN, VALLEZ FILTER OPERATOR, ESTER Primary Care Unav ailable ESTELA VICENTE MD, DR LINDA HONEYCUTT Consulting Unavaildavid PHIPPS MD, DRE Attending Unavailable SANDHYA MOREJON, CANDIDA Consulting Unavailable NUHA MOREJON, DR MARION Consulting Donaldo DANG MD, CIPRIANO Consulting Unavailable ASHOK WALLER MD, DR RAYMUNDO Attending Unav MINISTERIO Lugo MD Primary Care Unavailable ASHOK WALLER MD, DR RAYMUNDO Attending Unav EKATERINA Moreira MD Primary Care Unavailable GLADYS FERNANDEZ-ORTHOPEDIC NURSE, STEFANO L Admitting Donaldo BEJARANO MSN, VALLEZ FILTER OPERATOR, [facility] Primary Care Unav ailanita CHAIREZ DO, ANNELIESE Attending Unavailable ASHOK WALLER MD, DR RAYMUNDO Attending Unaalexa ailanita BEJARANO MSN, VALLEZ FILTER OPERATOR, [facility] Care Osman Encarnacion MD, Dr. Henry Primary Care Provider Lasha Pro MD Attending Provider Yesy Tavares MANAGER PUBLISHING-C, Savi Attending Provider Lasha Pro MD Referring Provider Yesy Pro MD, Dr. Colby Attending Provider Jim Valentin Attending Provider Alejandra MOREJON, Dr. Henry Primary Care Provider Lasha Pro MD Attending Provider Yesy Pro MD, Dr. Colby Attending Provider [phone] Anusha MANAGER PUBLISHING-C, Savi Attending Provider Dr. Carl Encarnacion MD Referring Provider Dr. Ronen Espinoza DO Attending Provider Monica MOREJON, Dr. Young Attending Provider Dr. Carl Encarnacion MD Primary Care Provider Lasha Pro MD Attending Provider Dr. Carl Hunt MD Primary Care Provider Anusha MANAGER PUBLISHING-CSavi Attending Provider Dr. Lasha Pro MD Attending Provider Jim Valentin Attending Provider Lasha Pro MD Referring Provider Dr. Carl Hunt MD Primary Care Provider Anusha MANAGER PUBLISHING-C, Savi Attending Provider Dr. Carl Encarnacion MD Primary Care Physician [phone] Lasha Pro MD Attending Physician Unavail able Jim Valentin Attending Physician Morteza MOREJON, Dr. Colby Attending Physician Alejandra MOREJON, Dr. Henry Primary Care Physician Lasha Pro MD Attending Physician Unavail able Anusha MANAGER PUBLISHING-CSavi Attending Physician Morteza VASQUEZ Efcachorroongbe Attending Unavailabl e Alejandra, Carl Primary Care Unavailable Oleghe OLS, Efewongbe Attending Unavailabl e Oleghe OLS, Efewongbe Referring Unavailabl e Alejandra, Carl Primary Care Unavailable Oleghe OLSBertabe Attending Unavailabl e Alejandra, Carl Primary Care Unavailable Alejandra, Carl Primary Care Unavailable Savi Tavares NP Attending Unavailable Oleghe OLS, Lasha Attending Unavailabl e Alejandra, Carl Primary Care Unavailable Oleghe OLSBertabe Attending Unavailabl e Alejandra, Carl Primary Care Unavailable Oleghe OLS Efcachorroongbe Attending Unavailabl e Alejandra, Carl Primary Care Unavailable Oleghe OLS, Efewongbe Attending Unavailabl e Alejandra, Carl Primary Care Unavailable Oleghe OLS, Efewongbe Attending Unavailabl e Oleghe OLS, Efewongbe Referring Unavailabl e Alejandra, Carl Primary Care Unavailable Oleghe OLS, Efewongbe Attending Unavailabl e Alejandar, Carl Primary Care Unavailable Oleghe OLS, Efewongbe [...] Primary Care Unavailable Jim Valentin Attending Unavailable [facility] Unavailable Oleghe, Efewongbe Attending Unavailable [facility] Unavailable Anusha MANAGER PUBLISHINGSavi Attending Unavailable [facility] Primary [facility] Unavailable Hector Anderson Attending Unavailable Oleghe OLS, Efewongbe Attending Unavailabl e Alejandra, [place] Primary Care Unavailable Oleghe, Efewongbe Attending Unavailable Alejandra, Carl Primary Care Unavailable Oleghe OLS, Efewongbe Attending Unavailabl e Oleghe OLS, Efewongbe Referring Unavailabl e Alejandra, Carl Primary Care Unavailable Alejandra, Carl Primary Care Unavailable Oleghe, Efewongbe Attending Unavailable [facility] Primary [facility] Unavailable Oleghe, Efewongbe Attending Unavailable [facility] Unavailable Anusha MANAGER PUBLISHINGSavi Attending Unavailable [facility] Primary [facility] Unavailable Anusha MANAGER PUBLISHINGSavi Attending Unavailable [facility] Primary [facility] Unavailable Jim Valentin Attending Unavailable [facility] Referring Unavailable Ronen Espinoza Attending Unavailable [facility] Unavailable Savi Tavares NP Attending Unavailable [facility] Primary [facility] Unavailable Jim Valentin Attending Unavailable [facility] Primary Care Unavailable Anusha MANAGER PUBLISHINGSavi Attending Unavailable [facility] Primary Care Unavailable Oleghe, Efewongbe Attending Unavailable [facility] Primary Care Unavailable Anusha MANAGER PUBLISHINGSavi Attending Unavailable Oleghe OLS, Efewongbe Attending Unavailabl e [facility] Primary Care Unavailable Allergies Allergy Classification Reported Allergen(s) Allergy Type Date of Onset Reaction(s) Facility NITROFURANTOIN, MACROCRYSTALS / Nitrofurantoin, Monohydrate (4 sources) NITROFURANTOIN, MACROCRYSTALS / Nitrofurantoin, Monohydrate; Translations: [nitrofurantoin] Drug Allergy 3 GI Upset, Upset stomach (finding) [facility] Work Phone: (20 sources) NITROFURANTOIN, MACROCRYSTALS / Nitrofurantoin, Monohydrate; Translations: [nitrofurantoin] Drug Allergy 3 GI Upset, Upset stomach (finding) [facility] Work Phone: (10 sources) Ciprofloxacin Drug Allergy 4 nausea and "felt loopy" [facility] (10 sources) Nitrofurantoin Drug Allergy [address] [facility] Comment on above: GI upset, nausea, vo miting and diarrhea. (1 source) Ciprofloxacin Drug Allergy 5 [facility] (1 source) Nitrofurantoin Drug Allergy 5 [facility] Medications Current Medications Medication Drug [...] sources) Vitamin D Start: 11-25-19 End: 12-14-19 Comment on above: Take one(1) tablet t wo(2) times daily. carvedilol 3.125 mg oral tablet (15 sources) alpha-Adrenergic Sally, beta-Adrenergic Sally Start: 01-22-20 take 1 tablet by mouth twice daily cefTRIAXone 2000 mg injection (1 source) Cephalosporin Antibacterial Start: 02-14-20 cefTRIAXone 2 g injection IV Push (INT), q12h, 0 Refill(s), 76.8 Start Date: 02/14/24 Status: Ordered cephalexin 500 mg oral tablet (20 sources) Cephalosporin Antibacterial Start: 09-01-19 take 1 tablet by mouth twice daily Start: 11-26-2023 End: 01-20-2024 take 1 capsule by mouth every eight hours Cephalexin 500 mg Capsule Discontinued 500 mg PO EVERY 8 HOURS 0 3 0 November 26, 2023 12:00am January 20, [...] Comment on above: Take 1 capsule by [facility] twice daily as needed. 0.4 ml [...] tablet by mouth once daily as needed levothyroxine sodium 0.088 mg oral tablet (20 sources) l-Thyroxine Start: 03-26-2023 levothyroxine 88 mcg (0.088 mg) oral tablet See Instructions, 1 tab(s) Oral Mon-Sat Hold Sun, 0 Refill(s) Start Date: 03/26/23 Status: Ordered Start: 02-05-2021 End: 05-01-2023 Comment on above: take one tablet by m outh wednesday through wednesday and none on wednesday. lovastatin 40 mg oral tablet (20 sources) HMG-CoA Reductase Inhibitor Start: 03-26-2023 take 1 tablet by mouth at bedtime Start: 12-15-2021 End: 02-08-2023 take 1 tablet [...] DAILY May 09, 2021 12:00am Multivitamin Tablet (10 sources) Start: 05-09-2021 Start: 05-09-2021 Multivitamin T ablet Active 1 [...] Comment on above: Take 1 capsule by [facility] twice daily with meals for 7 days. omeprazole 20 mg delayed release oral capsule (20 sources) Proton Pump Inhibitor Start: 07-15-2020 End: 02-08-2023 take 1 capsule by mouth once daily Comment on above: Take 1 capsule by [facility] once daily. perflutren lipid microspheres 1.3 [...] with food. Take 2 tablets by mo uth once daily for 5 days. Take 4 [...] (For chemotherapy induced nausea and vomiting). sennosides, [facility] living 8.6 mg oral tablet (1 source) Start: [...] oral tablet (20 sources) Opioid Agonist Start: 06-01-2025 take 1 tablet by mouth once daily Start: 03-09-2025 End: 04-08-2025 take 1 tablet by mouth every six hours as needed for pain Tramadol 50 mg tablet Discontinued 50 mg PO EVERY 6 HOURS as needed for pain 90 30 0 March 09, 2025 12:00am April 07, 2025 12:00am April 08, 2025 12:09am Start: 09-27-2024 End: 06-01-2025 take 1 tablet by mouth once daily Tramadol 50 mg tablet Discontinued 50 mg PO daily 90 0 March 13, 2025 10:04am May 08, 2025 10:11am Start: 09-27-2024 End: 01-19-2025 take 1 tablet by mouth every six hours as needed for pain Tramadol 50 mg tablet Discontinued 50 mg PO .q 6 hours as needed for pain 60 30 0 December 20, 2024 6:44pm January 18, 2025 12:00am January 19, 2025 12:08am Start: 09-16-2021 End: 09-27-2024 take 1 tablet [...] Comment on above: Take 1,000 mcg by [facility] once daily. Vitamin D3 (1 source) Start: 03-26-2023 Vitamin D3 qDa y, one tab daily, 0 Refill(s) Start Date: 03/26/23 Status: Ordered Completed/Discontinued Medications Medication Drug Class(es) Dates Sig (Normalized) Sig (Original) acetaminophen 325 mg / HYDROcodone bitartrate 5 mg oral tablet (17 sources) Opioid Agonist Start: 01-12-2023 End: 11-26-2023 [...] Ordered Start: 05-31-2023 take 1 tablet by mouth at [facility] Comment on above: Take 1 tablet by [facility] once daily. atenolol 25 mg oral tablet (14 sources) beta-Adrenergic Sally Start: 05-09-20 End: 06-05-20 [...] before surgery cefdinir 300 mg oral capsule (10 sources) Cephalosporin Antibacterial Start: 01-22-20 End: 09-01-19 [...] Comment on above: [facility]. Glucosamine Hcl-Vitamin D3 (4 sources) Start: 05-09-2021 End: 06-05-2021 take 1 tablet by mouth once daily Glucosamine Hcl-Vitamin D3 Discontinued 1 TABLET PO DAILY May 09, 2021 12:00am June 05, 2021 7:39pm Glucosamine Hcl-Vitamin D3 1,000-200 mg-unit Tablet (10 sources) Start: 05-09-2021 End: 06-05-2021 Glucosamine Hcl-Vitamin [...] 6 hours as needed. 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) Malignant [...] 01-25-2024 Chronic Other and ill-defined heart disease (1 source) Takotsubo syndrome; Translations: [Takotsubo syndrome] Onset: 5 Chronic Other connective tissue disease (12 sources) Rhabdomyolysis; Translations: [Rhabdomyolysis] 11-23-2023 Episodic Other [...] Onset: 5 12-04-2024 Chronic Sprains and strains (14 sources) Lower back injury; Translations: [Strain of [...] (3 sources) Drug therapy finding; Translations: [Other uc architect (current) drug therapy] Onset: 08-28-2016 05-10-2018 Episodic Other aftercare (20 sources) Patient encounter status; Translations: [Other care home (current) drug therapy] Onset: 02-26-2017 09-20-2018 Episodic Other aftercare (1 source) Other care home (current) drug therapy; Translations: [Medication management] Onset: 09-20-2018 Episodic Other bone disease and musculoskeletal deformities (20 sources) Osteopenia; Translations: [Other specified disorders of bone density and structure, unspecified site] Onset: 11-24-2006 02-27-2016 Episodic Other connective tissue disease (18 sources) Enthesopathy of hip region; Translations: [Other specified enthesopathies of unspecified lower limb, excluding foot] Onset: 10-27-2012 Resolved: 11-28-2012 11-28-2012 Episodic Other diseases of kidney and ureters [...] [Pain in right hip] Onset: 01-04-2025 Episodic Residual codes; unclassified (1 source) Insomnia, unspecified; Translations: [Insomnia, unspecified] Onset: 01-24-2025 Episodic Spondylosis; intervertebral disc disorders; other back problems (20 sources) Acute back pain with sciatica; Translations: [Lumbago with sciatica, right side] Onset: 05-13-2016 08-28-2016 Episodic Urinary tract infections (20 sources) Recurrent urinary tract infection; Translations: [Urinary tract infection, site not specified] Onset: 12-13-2023 Episodic Results Test Name Value Interpretation Reference Range Facility TSH DL <= 0.005 mIU/L QnOrde red By: Lasha Pro on 05-28-2025 TSH Qn 0.752 uIU/mL 0.300-4.[address] [facility] Calculated very low density lipoprotein (VLDL) cholesterol measurementOrdered By: Lasha Pro on 04-16-2025 Calculated very low density lipoprotein (VLDL) cholesterol measurement 28 mg/dL 5-40 [facility] LDL calc ser/plasOrdered By: Lasha Pro on 04-16-2025 Cholesterol in LDL [Mass/Vol] 53 mg/dL [facility] Comment on above: Oxulwgtvfc=205-494 m g/dL & Higher Kkoy=989 mg/dL or greaterFriedwald Equation for LDL-C Screening total cholesterol/ high density lipoprotein (HDL) cholesterol ratioOrdered By: Lasha Pro on 04-16-2025 Cholesterol.total/Chol esterol in HDL [Mass ratio] 2.18 {ratio} [facility] Serum or plasma cholesterol in HDL measurement (mass/volume)Ordered By: Lasha Pro on 04-16-2025 Cholesterol in HDL [Mass/Vol] 69 mg/dL >40 [facility] Comment on above: National Cholesterol Education Program (NCEP) guidelines:<40 mg/dL: Low HDL-cholesterol (major risk factor for CHD)>= 60 mg/dL: High HDL-cholesterol (negative risk factor for CHD)HDL-cholesterol is affected by a number of factors, e.g. smoking, exercise, hormones, sex and age. Serum or plasma cholesterol measurement (mass/volume)Ordered By: Lasha Pro on 04-16-2025 Cholesterol [Mass/Vol] 150 mg/dL <201 [facility] Comment on above: Cholesterol level, D esirable <200 mg/dLBorderline high cholesterol 200-239 mg/dLHigh cholesterol >=240 mg/dLRecommendations of the NCEP Adult Treatment Panel for the following risk-cutoff thresholds for the [place] population. TSH DL <= 0.005 mIU/L QnOrde red By: Lasha Pro on 04-16-2025 TSH Qn 1.690 uIU/mL 0.300-4.[address] [facility] Triglycerides measurementOrd ered By: Lasha Pro on 04-16-2025 Triglyceride [Mass/Vol] 139 mg/dL <199 [facility] Comment on above: The drugs N-Acetylcy steine and Metamizole may falsely depress this assay. Normal range: <150 mg/dLBorderline High: 150-199 mg/dLHigh: 200-499 mg/dLVery High: >500 mg/dL Urine Drug Screen (VISTA)on 04-03-2025 Fentanyl Normal <5 ng/mL [facility] Comment on above: Order Comment: UNK Result [...] UTCA Performed By: #### L 505.5000 #### [facility] [address] [place] [address] AMPHETAMINES Normal <1000 ng/mL [facility] Comment on above: Order Comment: UNK Result Comment: UTO Performed By: #### L [id number] #### [facility] [address] [place] [id number] BARBITIURATES Normal < 200 ng/mL [facility] Comment on above: Order Comment: UNK Result Comment: UTO Performed By: #### L [id number] #### [facility] [address] [place] [address] BENZODIAZIPINE Normal < 200 ng/mL [facility] Comment on above: Order Comment: UNK Result Comment: UTO Performed By: #### L [id number] #### [facility] [address] [facility] [address] BUP Ur Drug Scr Normal < 200 ng/mL [facility] Comment on above: Order Comment: UNK Result Comment: UTO Performed By: #### L [id number] #### [facility] [address] [place] [address] COCAINE Normal < 300 ng/mL [facility] Comment on above: Order Comment: UNK Result Comment: UTO Performed By: #### L [id number] #### [facility] [address] [facility] [address] METHADONE Normal < 300 ng/mL [facility] Comment on above: Order Comment: UNK Result Comment: UTO Performed By: #### L [id number] #### [facility] [address] [place], [address] OPIATES Normal < 300 ng/mL [facility] Comment on above: Order Comment: UNK Result Comment: UTO Performed By: #### L [id number] #### [facility] [address] [facility] [address] OXYCODONE Normal < 100 ng/mL [facility] Comment on above: Order Comment: UNK Result Comment: UTO Performed By: #### L [id number] #### [facility] [address] [facility] [address] PCP Normal < 25 ng/mL [facility] Comment on above: Order Comment: UNK Result Comment: UTO Performed By: #### L [id number] #### [facility] [address] [place] [address] THC Normal < 50 ng/mL [facility] Comment on above: Order Comment: UNK Result Comment: UTO Performed By: #### L [id number] #### [facility] [address] [place], [address] TSH DL <= 0.005 mIU/L QnOrde red By: Lasha Pro on 03-05-2025 TSH Qn 0.219 uIU/mL Low 0.300-4.[address] [facility] Absolute lymphocyte countOrd ered By: Lasha Pro on 02-19-2025 Lymphocytes Auto (Unsp spec) [#/Vol] 0.85 10*3/uL 0.83-4.51 [facility] Absolute neutrophil countOrd ered By: Lasha Pro on 02-19-2025 Neutrophils (Bld) [#/Vol] 1.8 10*3/uL Low 2.0-7.7 [facility] Anion gap in Serum or Plasma Ordered By: Lasha Pro on 02-19-2025 Anion gap [Moles/Vol] 10 mmol/L 5-15 [facility] Automated lymphocyte count a s percentage of total leukocytesOrdered By: Lasha Pro on 02-19-2025 Lymphocytes/100 WBC Auto (Unsp spec) 27.2 % 19-41 [facility] BUN/creatinine ratioOrdered By: Lasha Pro on 02-19-2025 Urea nitrogen/Creatinine [Mass ratio] 19.6 mg/mg 10-20 [facility] Basophil percentageOrdered B y: Lasha Pro on 02-19-2025 Basophils/100 WBC (Bld) 1.3 % High 0-1 [facility] Bilirubin directOrdered By: Lasha Pro on 02-19-2025 Bilirubin.direct [Mass/Vol] 0.16 mg/dL 0.00-0.30 [facility] Bilirubin, totalOrdered By: Lasha Pro on 02-19-2025 Bilirubin [Mass/Vol] 0.39 mg/dL 0.00-1.30 [facility] Carbon dioxide, total [Moles /volume] in Central venous bloodOrdered By: Lasha rPo on 02-19-2025 CO2 [Moles/Vol] 24.0 mmol/L 21.0-32.0 [facility] Chloride assayOrdered By: Brittany ivoryphilip Pro on 02-19-2025 Chloride [Moles/Vol] 103 mmol/L 98-108 [facility] Eosinophil percentageOrdered By: Lasha Pro on 02-19-2025 Eosinophils/100 WBC (Bld) 3.5 % 0-5 [facility] Erythrocyte distribution wid th ratioOrdered By: Lasha Pro on 02-19-2025 Erythrocyte distribution width (RBC) [Ratio] 14.4 % 11.6-14.6 [facility] Erythrocyte distribution wid th standard deviationOrdered By: Lasha Pro on 02-19-2025 Erythrocyte distribution width (RBC) [Ratio] 54.5 fl High 35.1-43.9 [facility] Glomerular filtration rate ( GFR) estimation/1.73 sq m using serum, plasma, or whole bOrdered By: Lasha Pro on 02-19-2025 GFR/1.73 sq M.predicted among non-blacks MDRD (S/P/Bld) [Vol rate/Area] 86 mL/min/{1.73_m2} >60 [facility] Comment on above: mL/min/1.73m2 CKD-EP I Creatinine Equation (2020) Hematocrit Auto (Bld) [Volum e fraction]Ordered By: Lasha Pro on 02-19-2025 Hematocrit (Bld) [Volume fraction] 35.7 % Low 37-47 [facility] Hemoglobin measurementOrdere d By: Lasha Pro on 02-19-2025 Hemoglobin (Bld) [Mass/Vol] 11.4 g/dL Low 12.0-15.0 [facility] Immature granulocytes/100 WB C Auto (Bld)Ordered By: Lasha Pro on 02-19-2025 Immature granulocytes/100 WBC (Bld) 0.600 % 0.0-0.9 [facility] Comment on above: IG% - Immature Granu locytes (promyelocytes, myelocytes and metamyelocytes) > 1% indicates that a LEFT SHIFT is Present. Laboratory - Chemistry and C hemistry - challengeOrdered By: Lasha Pro on 02-19-2025 AST [Catalytic activity/Vol] 19 U/L <32 [facility] MCV (mean corpuscular volume ) determinationOrdered By: Lasha Pro on 02-19-2025 MCV (RBC) [Entitic vol] 103.5 fL High 81-99 [facility] Mean corpuscular hemoglobin (MCH) determinationOrdered By: Lasha Pro on 02-19-2025 MCH (RBC) [Entitic mass] 33.0 pg High 27.0-32.0 [facility] Mean corpuscular hemoglobin concentration (MCHC) determinationOrdered By: Lasha Pro on 02-19-2025 MCHC (RBC) [Mass/Vol] 31.9 g/dL Low 32-36 [facility] Mean platelet volume determi nationOrdered By: Lasha Pro 02-19-2025 Platelet mean volume (Bld) [Entitic vol] 10.1 fL 6.2-12.0 [facility] Monocyte percentageOrdered B y: Lasha Pro on 02-19-2025 Monocytes/100 WBC (Bld) 10.9 % High 0-10 [facility] Neutrophil percentageOrdered By: Lasha Singletaryhelenmanjula on 02-19-2025 Neutrophils/100 WBC (Bld) 56.5 % 47-70 [facility] Nucleated red blood cell per centageOrdered By: Lasha Pro on 02-19-2025 Nucleated RBC/100 WBC (Bld) [Ratio] 0 % 0-5 [facility] Platelet countOrdered By: Brittany Pro on 02-19-2025 Platelets (Bld) [#/Vol] 206 10*3/uL 150-450 [facility] Potassium measurement (mass/ volume)Ordered By: Lasha Pro on 02-19-2025 Potassium (Unsp spec) [Mass/Vol] 4.4 mmol/L 3.3-5.1 [facility] RBC Auto (Bld) [#/Vol]Ordere d By: Lasha Pro on 02-19-2025 RBC (Bld) [#/Vol] 3.45 10*6/uL Low 4.2-5.4 [facility] Serum creatinine measurement (mass/volume)Ordered By: Lasha Pro on 02-19-2025 Creatinine [Mass/Vol] 0.65 mg/dL Low 0.70-1.20 [facility] Serum globulin measurementOr dered By: Lasha Pro on 02-19-2025 Globulin (S) [Mass/Vol] 2.6 g/dL 2.2-4.2 [facility] Serum glucose measurement (m ass/volume)Ordered By: Lasha Pro on 02-19-2025 Glucose [Mass/Vol] 87 mg/dL 70-99 [facility] Serum or plasma alanine valdez otransferase (ALT) measurementOrdered By: Lasha Pro on 02-19-2025 ALT [Catalytic activity/Vol] 9 U/L <35 [facility] Serum or plasma albumin nina urement (mass/volume)Ordered By: Lasha Pro on 02-19-2025 Albumin [Mass/Vol] 3.5 g/dL 3.4-4.8 [facility] Serum or plasma albumin/glob ulin mass ratioOrdered By: Lasha Singletaryhelenmanjula on 02-19-2025 Albumin/Globulin [Mass ratio] 1.3 {ratio} 0.9-2.4 [facility] Serum or plasma alkaline adelaide sphatase measurementOrdered By: Lasha Pro on 02-19-2025 ALP [Catalytic activity/Vol] 76 U/L 35-104 [facility] Serum or plasma calcium nina urement (mass/volume)Ordered By: Lasha Pro on 02-19-2025 Calcium [Mass/Vol] 8.8 mg/dL 7.6-11.0 [facility] Serum or plasma urea nitroge n measurement (mass/volume)Ordered By: Lasha Pro on 02-19-2025 Urea nitrogen [Mass/Vol] 13 mg/dL 4-19 [facility] Sodium levelOrdered By: Tenzin lesley Morteza on 02-19-2025 Sodium [Moles/Vol] 137 mmol/L 133-145 [facility] Total proteinOrdered By: Maikelmanjula beltrephilip Pro on 02-19-2025 Protein [Mass/Vol] 6.1 g/dL 5.9-8.4 [facility] White blood cell (WBC) count Ordered By: Lasha Pro on 02-19-2025 WBC (Bld) [#/Vol] 3.1 10*3/uL Low 4.4-11.0 [facility] Bilirubin Test strip Ql (U)O rdered By: Lasha Pro on 02-12-2025 Bilirubin Ql (U) Negative Negative [facility] Ketones Test strip Ql (U)Ord ered By: Lasha Pro on 02-12-2025 Ketones Ql (U) 5 mg/dl High Negative [facility] Microscopic analysis of urin e for red blood cells (RBC)Ordered By: Lasha Pro on 02-12-2025 Microscopic analysis of urine for red blood cells (RBC) See comment 0-5 [facility] Comment on above: PRESENT, UNABLE TO Q UANTITATE Mucus LM Ql (Urine sed)Order ed By: Lasha Pro on 02-12-2025 Mucus Ql (Urine sed) 0 SEEN /hpf [facility] Nitrite Test strip Ql (U)Ord ered By: Lasha Pro on 02-12-2025 Nitrite Ql (U) Positive High Negative [facility] Protein Test strip Ql (U)Ord ered By: Lasha rPo on 02-12-2025 Protein Ql (U) 100 mg/dl High Negative [facility] Squamous epithelial cells de tection in urine sediment by light microscopyOrdered By: Lasha Pro on 02-12-2025 Epithelial cells.squamous LM Ql (Urine sed) 0 SEEN /hpf 5-10 [facility] Urine clarityOrdered By: Maikel Pro on 02-12-2025 Clarity (U) Turbid Clear [facility] Urine color determinationOrd ered By: Lasha Pro on 02-12-2025 Color (U) Brown Yellow [facility] Urine cultureOrdered By: Maikel Pro on 02-12-2025 Bacteria identified Cx Nom (U) Proteus mirabilis Abnormal [facility] Urine glucose detectionOrder ed By: Lasha Pro on 02-12-2025 Glucose Ql (U) Normal mg/dl Normal [facility] Urine leukocyte esterase det ection by dipstickOrdered By: Lasha Pro on 02-12-2025 Leukocyte esterase Test strip Ql (U) 500 /ul High Negative [facility] Urine pHOrdered By: Jennie Pro on 02-12-2025 pH (U) 8.0 [pH] 5.0 - 8.0 [facility] Urine sediment bacteria coun t by microscopy (number/high power field)Ordered By: Lasha Pro on 02-12-2025 Bacteria LM.HPF (Urine sed) [#/Area] See comment None Seen [facility] Comment on above: PRESENT, UNABLE TO Q UANTITATE Urine specific gravity measu rementOrdered By: Lasha Pro on 02-12-2025 Specific gravity (U) [Rel density] 1.015 1.002-1.[address] [facility] Urine urobilinogen measureme ntOrdered By: Lasha Pro on 02-12-2025 Urobilinogen Ql (U) Normal mg/dl Normal [facility] White blood cell countOrdere d By: Lasha Pro on 02-12-2025 White blood cell count >100 SEEN /hpf 0-5 [facility] Comment on above: Microscopic field is filled. Other elements may be obscured. Calculated very low density lipoprotein (VLDL) cholesterol measurementOrdered By: Lasha Pro on 01-22-2025 Calculated very low density lipoprotein (VLDL) cholesterol measurement 25 mg/dL 5-40 [facility] LDL calc ser/plasOrdered By: Lasha Pro on 01-22-2025 Cholesterol in LDL [Mass/Vol] 59 mg/dL [facility] Comment on above: Rkjpzixjwx=563-696 m g/dL & Higher Hxvj=008 mg/dL or greater Screening total cholesterol/ high density lipoprotein (HDL) cholesterol ratioOrdered By: Lasha Pro on 01-22-2025 Cholesterol.total/Chol esterol in HDL [Mass ratio] 2.12 {ratio} [facility] Serum or plasma cholesterol in HDL measurement (mass/volume)Ordered By: Lasha Pro on 01-22-2025 Cholesterol in HDL [Mass/Vol] 75 mg/dL >40 [facility] Comment on above: National Cholesterol Education Program (NCEP) guidelines:<40 mg/dL: Low HDL-cholesterol (major risk factor for CHD)>= 60 mg/dL: High HDL-cholesterol (negative risk factor for CHD)HDL-cholesterol is affected by a number of factors, e.g. smoking, exercise, hormones, sex and age. Serum or plasma cholesterol measurement (mass/volume)Ordered By: Lasha Pro on 01-22-2025 Cholesterol [Mass/Vol] 160 mg/dL <201 [facility] Comment on above: Cholesterol level, D esirable <200 mg/dLBorderline high cholesterol 200-239 mg/dLHigh cholesterol >=240 mg/dLRecommendations of the NCEP Adult Treatment Panel for the following risk-cutoff thresholds for the [place] population. TSH DL <= 0.005 mIU/L QnOrde red By: Lasha Pro on 01-22-2025 TSH Qn 1.410 uIU/mL 0.300-4.[address] [facility] Triglycerides measurementOrd ered By: Lasha Pro on 01-22-2025 Triglyceride [Mass/Vol] 127 mg/dL <199 [facility] Comment on above: The drugs N-Acetylcy steine and Metamizole may falsely depress this assay. Normal range: <150 mg/dLBorderline High: 150-199 mg/dLHigh: 200-499 mg/dLVery High: >500 mg/dL Absolute lymphocyte countOrd ered By: Lasha Pro on 01-18-2025 Lymphocytes Auto (Unsp spec) [#/Vol] 1.31 10*3/uL 0.83-4.51 [facility] Absolute neutrophil countOrd ered By: Lasha Pro on 01-18-2025 Neutrophils (Bld) [#/Vol] 3.4 10*3/uL 2.0-7.7 [facility] Anion gap in Serum or Plasma Ordered By: Lasha Pro on 01-18-2025 Anion gap [Moles/Vol] 14 mmol/L 5-15 [facility] Automated lymphocyte count a s percentage of total leukocytesOrdered By: Lasha Pro on 01-18-2025 Lymphocytes/100 WBC Auto (Unsp spec) 25.1 % 19-41 [facility] BUN/creatinine ratioOrdered By: Lasha Pro on 01-18-2025 Urea nitrogen/Creatinine [Mass ratio] 28.4 mg/mg High 10-20 [facility] Basophil percentageOrdered B y: Lasha Pro on 01-18-2025 Basophils/100 WBC (Bld) 0.8 % 0-1 [facility] Bilirubin, totalOrdered By: Lasha Pro on 01-18-2025 Bilirubin [Mass/Vol] 0.68 mg/dL 0.00-1.30 [facility] Carbon dioxide, total [Moles /volume] in Central venous bloodOrdered By: Lasha Pro on 01-18-2025 CO2 [Moles/Vol] 23.1 mmol/L 21.0-32.0 [facility] Chloride assayOrdered By: Brittany annmarie Hayderhelenmanjula on 01-18-2025 Chloride [Moles/Vol] 101 mmol/L 98-108 [facility] Eosinophil percentageOrdered By: [facility] Singletaryhelenmanjula 01-18-2025 Eosinophils/100 WBC (Bld) 1.0 % 0-5 [facility] Erythrocyte distribution wid th ratioOrdered By: cachorrojeffphilip Singletaryheelnmanjula on 01-18-2025 Erythrocyte distribution width (RBC) [Ratio] 13.4 % 11.6-14.6 [facility] Erythrocyte distribution wid th standard deviationOrdered By: [facility] Singletarymanjula on 01-18-2025 Erythrocyte distribution width (RBC) [Ratio] 51.0 fl High 35.1-43.9 [facility] Glomerular filtration rate ( GFR) estimation/1.73 sq m using serum, plasma, or whole bOrdered By: annmarie Pro on 01-18-2025 GFR/1.73 sq M.predicted among non-blacks MDRD (S/P/Bld) [Vol rate/Area] 65 mL/min/{1.73_m2} >60 [facility] Comment on above: mL/min/1.73m2 CKD-EP I Creatinine Equation (2020) Hematocrit Auto (Bld) [Volum e fraction]Ordered By: [facility] Singletarymanjula 01-18-2025 Hematocrit (Bld) [Volume fraction] 41.5 % 37-47 [facility] Hemoglobin measurementOrdere d By: Brittanyannmarie Por on 01-18-2025 Hemoglobin (Bld) [Mass/Vol] 13.2 g/dL 12.0-15.0 [facility] Immature granulocytes/100 WB C Auto (Bld)Ordered By: annmarie Pro 01-18-2025 Immature granulocytes/100 WBC (Bld) 0.200 % 0.0-0.9 [facility] Comment on above: IG% - Immature Granu locytes (promyelocytes, myelocytes and metamyelocytes) > 1% indicates that a LEFT SHIFT is Present. Laboratory - Chemistry and C hemistry - challengeOrdered By: Brittanyannmarie Pro on 01-18-2025 AST [Catalytic activity/Vol] 22 U/L <32 [facility] Comment on above: Hemolysis present, R esults could be affected. MCV (mean corpuscular volume ) determinationOrdered By: Lasha Pro on 01-18-2025 MCV (RBC) [Entitic vol] 102.5 fL High 81-99 [facility] Mean corpuscular hemoglobin (MCH) determinationOrdered By: Lasha Singletaryhelenmanjula on 01-18-2025 MCH (RBC) [Entitic mass] 32.6 pg High 27.0-32.0 [facility] Mean corpuscular hemoglobin concentration (MCHC) determinationOrdered By: Lasha Pro on 01-18-2025 MCHC (RBC) [Mass/Vol] 31.8 g/dL Low 32-36 [facility] Mean platelet volume determi nationOrdered By: Lasha Pro on 01-18-2025 Platelet mean volume (Bld) [Entitic vol] 10.1 fL 6.2-12.0 [facility] Monocyte percentageOrdered B y: Tenzinrambophilip Singletaryhelenmanjula on 01-18-2025 Monocytes/100 WBC (Bld) 8.0 % 0-10 [facility] Neutrophil percentageOrdered By: cachorrojeffphilip Pro on 01-18-2025 Neutrophils/100 WBC (Bld) 64.9 % 47-70 [facility] Nucleated red blood cell per centageOrdered By: Lasha Pro on 01-18-2025 Nucleated RBC/100 WBC (Bld) [Ratio] 0 % 0-5 [facility] Platelet countOrdered By: Brittany leelaphilip Singletaryhelenmnajula on 01-18-2025 Platelets (Bld) [#/Vol] 212 10*3/uL 150-450 [facility] Potassium measurement (mass/ volume)Ordered By: Lasha Pro on 01-18-2025 Potassium (Unsp spec) [Mass/Vol] 4.7 mmol/L 3.3-5.1 [facility] Comment on above: Hemolysis present, R esults could be affected. RBC Auto (Bld) [#/Vol]Ordere d By: Lasha Pro on 01-18-2025 RBC (Bld) [#/Vol] 4.05 10*6/uL Low 4.2-5.4 [facility] Serum creatinine measurement (mass/volume)Ordered By: Lasha Pro on 01-18-2025 Creatinine [Mass/Vol] 0.87 mg/dL 0.70-1.20 [facility] Serum globulin measurementOr dered By: Lasha Pro on 01-18-2025 Globulin (S) [Mass/Vol] 3.2 g/dL 2.2-4.2 [facility] Serum glucose measurement (m ass/volume)Ordered By: Lasha Pro on 01-18-2025 Glucose [Mass/Vol] 96 mg/dL 70-99 [facility] Serum or plasma alanine valdez otransferase (ALT) measurementOrdered By: Lasha Pro on 01-18-2025 ALT [Catalytic activity/Vol] 13 U/L <35 [facility] Serum or plasma albumin nina urement (mass/volume)Ordered By: Lasha Pro 01-18-2025 Albumin [Mass/Vol] 4.3 g/dL 3.4-4.8 [facility] Serum or plasma albumin/glob ulin mass ratioOrdered By: Lasha Pro 01-18-2025 Albumin/Globulin [Mass ratio] 1.4 {ratio} 0.9-2.4 [facility] Serum or plasma alkaline [place] sphatase measurementOrdered By: Lasha Pro 01-18-2025 ALP [Catalytic activity/Vol] 86 U/L 35-104 [facility] Serum or plasma calcium nina urement (mass/volume)Ordered By: Lasha Pro 01-18-2025 Calcium [Mass/Vol] 9.5 mg/dL 7.6-11.0 [facility] Serum or plasma urea nitroge n measurement (mass/volume)Ordered By: Lasha Pro 01-18-2025 Urea nitrogen [Mass/Vol] 25 mg/dL High 4-19 [facility] Sodium levelOrdered By: Teznin Pro on 01-18-2025 Sodium [Moles/Vol] 138 mmol/L 133-145 [facility] TSH DL <= 0.005 mIU/L QnOrde red By: Lasha Pro on 01-18-2025 TSH Qn 1.420 uIU/mL 0.300-4.[address] [facility] Total proteinOrdered By: Maikel Pro on 01-18-2025 Protein [Mass/Vol] 7.5 g/dL 5.9-8.4 [facility] Venous blood ammonia measure mentOrdered By: Lasha Pro on 01-18-2025 Ammonia (P) [Moles/Vol] 26.9 umol/L 11-51 [facility] White blood cell (WBC) count Ordered By: Lasha Pro on 01-18-2025 WBC (Bld) [#/Vol] 5.2 10*3/uL 4.4-11.0 [facility] TSH DL <= 0.005 mIU/L QnOrde red By: Lasha Pro on 12-11-2024 TSH Qn 1.480 uIU/mL 0.300-4.[address] [facility] Bilirubin Test strip Ql (U)O rdered By: Lasha Pro on 12-05-2024 Bilirubin Ql (U) Negative Negative [facility] Ketones Test strip Ql (U)Ord ered By: Lasha Pro on 12-05-2024 Ketones Ql (U) Negative Negative [facility] Nitrite Test strip Ql (U)Ord ered By: Lasha Pro on 12-05-2024 Nitrite Ql (U) Positive High Negative [facility] Protein Test strip Ql (U)Ord ered By: Lasha Pro on 12-05-2024 Protein Ql (U) 15 mg/dl High Negative [facility] Comment on above: Previous reported re sult: TNP mg/dlEdited by: SONAL on 12/07/24:1631 AMENDED REPORT 12/07/24 1631 PROT DIPSTX previously reported as: Test not performed mg/dl Urine clarityOrdered By: Maikel Pro on 12-05-2024 Clarity (U) Cloudy Clear [facility] Urine color determinationOrd ered By: Lasha Pro on 12-05-2024 Color (U) Straw Yellow [facility] Urine cultureOrdered By: Maikel Pro on 12-05-2024 Bacteria identified Cx Nom (U) ESBL Escherichia coli Abnormal [facility] Urine glucose detectionOrder ed By: Lasha Pro on 12-05-2024 Glucose Ql (U) Normal mg/dl Normal [facility] Urine leukocyte esterase det ection by dipstickOrdered By: Lasha Pro on 12-05-2024 Leukocyte esterase Test strip Ql (U) 500 /ul High Negative [facility] Urine pHOrdered By: Jennie Pro on 12-05-2024 pH (U) 6.0 [pH] 5.0 - 8.0 [facility] Urine specific gravity measu rementOrdered By: Lasha Pro on 12-05-2024 Specific gravity (U) [Rel density] 1.010 1.002-1.[address] [facility] Urine urobilinogen measureme ntOrdered By: Lasha Pro on 12-05-2024 Urobilinogen Ql (U) Normal mg/dl Normal [facility] HIP, UNI W/ Pelvis 2-3 Views on 12-04-2024 HIP, UNI W/ Pelvis 2-3 Views [facility] [address], [place] [id number] HIP, UNI W/ Pelvis 2-3 Views MR#: [id number] Acct: [id number] Name: STEFANO WASHINGTON Rep #: [id number] : 1940 F 84 From: Cheryl Davies PCP: Dr. Carl Encarnacion MD Status: DEP AMB Study: HIP, UNI W/ Pelvis 2-3 Views Date of Exam: Exam# [id number] Ordering Dr: Ronen Espinoza DO PROCEDURE: HIP, [...] Mild arthritic changes are seen. Reading Location: [id number] CC: Dr. Carl Encarnacion MD; Dr. Ronen Espinoza DO Online Trader: Signed Normal [facility] Orthopedic Visit Reporton Orthopedic Visit Report [facility] [address] [place] [address] OFFICE VISIT Date of Service: 12/04/24 MR#: [id number] Acct: [id number] Name: STEFANO WASHINGTON Rep #: [id number] : 1940 Provider: Dr. Ronen winston DO Age/Sex: 84/F Location: [facility] [place] Status: Signed Intake Vital Signs 03/14/24 [...] stenosis UTI (urinary tract infection) Non-ST elevation CO (NSTEMI) Hypertension Chronic pain Rheumatoid arthritis Former [...] the flare. Patient is at [facility], they will fill that prescription for the Medrol Dosepak as directed (more content not included)... Normal [facility] Vitamin B12 ser/plasOrdered By: Lasha Pro on 11-02-2024 Cobalamin (Vitamin B12) [Mass/Vol] 412 pg/mL 180-914 [facility] Calculated very low density lipoprotein (VLDL) cholesterol measurementOrdered By: Lasha Pro on 10-30-2024 Calculated very low density lipoprotein (VLDL) cholesterol measurement 23 mg/dL 5-40 [facility] VLDL Cholesterol 23 mg/dL 5-40 [facility] LDL calc ser/plasOrdered By: Lasha Pro on 10-30-2024 Cholesterol in LDL [Mass/Vol] 47 mg/dL [facility] Comment on above: Qlgkiylxab=606-032 m g/dL & Higher Jjem=134 mg/dL or greater LDL Cholesterol, Calculated 47 mg/dL [facility] Comment on above: Rxovlexndw=912-149 m g/dL & Higher Hvjl=023 mg/dL or greater Screening total cholesterol/ high density lipoprotein (HDL) cholesterol ratioOrdered By: Lasha Pro on 10-30-2024 Cholesterol.total/Chol esterol in HDL [Mass ratio] 2.22 {ratio} [facility] Serum or plasma cholesterol in HDL measurement (mass/volume)Ordered By: Lasha Pro on 10-30-2024 Cholesterol in HDL [Mass/Vol] 58 mg/dL >40 [facility] Comment on above: National Cholesterol Education Program (NCEP) guidelines:<40 mg/dL: Low HDL-cholesterol (major risk factor for CHD)>= 60 mg/dL: High HDL-cholesterol (negative risk factor for CHD)HDL-cholesterol is affected by a number of factors, e.g. smoking, exercise, hormones, sex and age. Serum or plasma cholesterol measurement (mass/volume)Ordered By: Lasha Pro on 10-30-2024 Cholesterol [Mass/Vol] 129 mg/dL <201 [facility] Comment on above: Cholesterol level, D esirable <200 mg/dLBorderline high cholesterol 200-239 mg/dLHigh cholesterol >=240 mg/dLRecommendations of the NCEP Adult Treatment Panel for the following risk-cutoff thresholds for the [place] population. TSH DL <= 0.005 mIU/L QnOrde red By: Lasha Pro on 10-30-2024 Thyroid Stimulating Hormone (TSH) 0.870 uIU/mL 0.300-4.[address] [facility] TSH Qn 0.870 uIU/mL 0.300-4.[address] [facility] Triglycerides measurementOrd ered By: Lasha Pro on 10-30-2024 Triglyceride [Mass/Vol] 117 mg/dL <199 [facility] Comment on above: The drugs N-Acetylcy steine and Metamizole may falsely depress this assay. Normal range: <150 mg/dLBorderline High: 150-199 mg/dLHigh: 200-499 mg/dLVery High: >500 mg/dL Absolute neutrophil countOrd ered By: Lasha Pro on 10-16-2024 Neutrophils (Bld) [#/Vol] 1.4 10*3/uL Low 2.0-7.7 [facility] Anion gap in Serum or Plasma Ordered By: Lasha Pro on 10-16-2024 Anion gap [Moles/Vol] 13 mmol/L 5-15 [facility] BUN/creatinine ratioOrdered By: Lasha Pro on 10-16-2024 Urea nitrogen/Creatinine [Mass ratio] 22.3 mg/mg High 10-20 [facility] Basophil percentageOrdered B y: Lasha Pro on 10-16-2024 Basophils/100 WBC (Bld) 1.7 % High 0-1 [facility] Bilirubin directOrdered By: Lasha Pro on 10-16-2024 Bilirubin.direct [Mass/Vol] 0.20 mg/dL 0.00-0.30 [facility] Bilirubin, totalOrdered By: Lasha Pro on 10-16-2024 Bilirubin [Mass/Vol] 0.34 mg/dL 0.00-1.30 [facility] Carbon dioxide, total [Moles /volume] in Central venous bloodOrdered By: Lasha Pro on 10-16-2024 CO2 [Moles/Vol] 22.7 mmol/L 21.0-32.0 [facility] Chloride assayOrdered By: Brittany rPo on 10-16-2024 Chloride [Moles/Vol] 107 mmol/L 98-108 [facility] Eosinophil percentageOrdered By: Lasha Pro on 10-16-2024 Eosinophils/100 WBC (Bld) 5.0 % 0-5 [facility] Erythrocyte distribution wid th (RBC) [Ratio]Ordered By: Lasha Pro on 10-16-2024 Erythrocyte distribution width (RBC) [Entitic vol] 52.4 fL High 35.1-43.9 [facility] Erythrocyte distribution wid th ratioOrdered By: Lasha Pro on 10-16-2024 Erythrocyte distribution width (RBC) [Ratio] 13.8 % 11.6-14.6 [facility] GFR/1.73 sq M.predicted gianna g non-blacks MDRD (S/P/Bld) [Vol rate/Area]Ordered By: Lasha Pro on 10-16-2024 Estimated GFR (MDRD) Non-Af Amer [address]60 [facility] Comment on above: mL/min/1.73m2 CKD-EP I Creatinine Equation (2020) Hematocrit Auto (Bld) [Volum e fraction]Ordered By: Lasha Pro on 10-16-2024 Hematocrit (Bld) [Volume fraction] 34.4 % Low 37-47 [facility] Hemoglobin measurementOrdere d By: Lasha Pro on 10-16-2024 Hemoglobin (Bld) [Mass/Vol] 10.8 g/dL Low 12.0-15.0 [facility] Immature granulocytes/100 WB C Auto (Bld)Ordered By: Lasha Pro on 10-16-2024 Immature granulocytes/100 WBC (Bld) 0.300 % 0.0-0.9 [facility] Comment on above: IG% - Immature Granu locytes (promyelocytes, myelocytes and metamyelocytes) > 1% indicates that a LEFT SHIFT is Present. Laboratory - Chemistry and C hemistry - challengeOrdered By: Lasha Pro on 10-16-2024 AST [Catalytic activity/Vol] 17 U/L <32 [facility] Lymphocytes Auto (Unsp spec) [#/Vol]Ordered By: Lasha Pro on 10-16-2024 Lymphocytes (Bld) [#/Vol] 1.11 10*3/uL 0.83-4.51 [facility] Lymphocytes/100 WBC Auto (Un sp spec)Ordered By: Lasha Pro on 10-16-2024 Lymphocytes/100 WBC (Bld) 36.6 % 19-41 [facility] MCV (mean corpuscular volume ) determinationOrdered By: Lasha Pro on 10-16-2024 MCV (RBC) [Entitic vol] 102.7 fL High 81-99 [facility] Mean corpuscular hemoglobin (MCH) determinationOrdered By: Lasha Singletaryhelenmanjula on 10-16-2024 MCH (RBC) [Entitic mass] 32.2 pg High 27.0-32.0 [facility] Mean corpuscular hemoglobin concentration (MCHC) determinationOrdered By: Lasha Pro on 10-16-2024 MCHC (RBC) [Mass/Vol] 31.4 g/dL Low 32-36 [facility] Mean platelet volume determi nationOrdered By: Lasha Pro on 10-16-2024 Platelet mean volume (Bld) [Entitic vol] 10.3 fL 6.2-12.0 [facility] Monocyte percentageOrdered B y: Lasha Pro on 10-16-2024 Monocytes/100 WBC (Bld) 11.9 % High 0-10 [facility] Neutrophil percentageOrdered By: Lasha Singletaryhelenmanjula on 10-16-2024 Neutrophils/100 WBC (Bld) 44.5 % Low 47-70 [facility] Nucleated red blood cell per centageOrdered By: Lasha Pro on 10-16-2024 Nucleated RBC/100 WBC (Bld) [Ratio] 0 % 0-5 [facility] Platelet countOrdered By: Brittany cachorrolesley Pro on 10-16-2024 Platelets (Bld) [#/Vol] 162 10*3/uL 150-450 [facility] Potassium (Unsp spec) [Mass/ Vol]Ordered By: Lasha Pro on 10-16-2024 Potassium [Moles/Vol] 3.9 mmol/L 3.3-5.1 [facility] RBC Auto (Bld) [#/Vol]Ordere d By: Lasha Pro on 10-16-2024 RBC (Bld) [#/Vol] 3.35 10*6/uL Low 4.2-5.4 [facility] Serum creatinine measurement (mass/volume)Ordered By: Lasha Pro on 10-16-2024 Creatinine [Mass/Vol] 0.70 mg/dL 0.70-1.20 [facility] Serum globulin measurementOr dered By: Lasha Pro on 10-16-2024 Globulin (S) [Mass/Vol] 2.9 g/dL 2.2-4.2 [facility] Serum glucose measurement (m ass/volume)Ordered By: Lasha Pro on 10-16-2024 Glucose [Mass/Vol] 83 mg/dL 70-99 [facility] Serum or plasma alanine valdez otransferase (ALT) measurementOrdered By: Lasha Pro on 10-16-2024 ALT [Catalytic activity/Vol] 6 U/L <35 [facility] Serum or plasma albumin nina urement (mass/volume)Ordered By: Lasha Pro on 10-16-2024 Albumin [Mass/Vol] 3.6 g/dL 3.4-4.8 [facility] Serum or plasma albumin/glob ulin mass ratioOrdered By: Lasha Pro on 10-16-2024 Albumin/Globulin [Mass ratio] 1.2 {ratio} 0.9-2.4 [facility] Serum or plasma alkaline [place]elaide sphatase measurementOrdered By: Lasha Pro on 10-16-2024 ALP [Catalytic activity/Vol] 64 U/L 35-104 [facility] Serum or plasma calcium nina urement (mass/volume)Ordered By: Lasha Pro on 10-16-2024 Calcium [Mass/Vol] 8.9 mg/dL 7.6-11.0 [facility] Serum or plasma urea nitroge n measurement (mass/volume)Ordered By: Lasha Pro on 10-16-2024 Urea nitrogen [Mass/Vol] 16 mg/dL 4-19 [facility] Serum phosphorus measurement Ordered By: Lasha Pro on 10-16-2024 Phosphorus Level 3.2 mg/dL 2.7-4.5 [facility] Sodium levelOrdered By: Tenzin alstonjocelyne Morteza on 10-16-2024 Sodium [Moles/Vol] 142 mmol/L 133-145 [facility] Total proteinOrdered By: Maikel Pro on 10-16-2024 Protein [Mass/Vol] 6.5 g/dL 5.9-8.4 [facility] White blood cell (WBC) count Ordered By: Lasha Pro on 10-16-2024 WBC (Bld) [#/Vol] 3.0 10*3/uL Low 4.4-11.0 [facility] Bilirubin Test strip Ql (U)O rdered By: Savi Tavares on 09-27-2024 Bilirubin Ql (U) Negative Negative [facility] Glucose Ql (U)Ordered By: Angel Tavares on 09-27-2024 Urine Glucose (UA) Normal mg/dl Normal [facility] Ketones Test strip Ql (U)Ord ered By: Savi Tavares on 09-27-2024 Ketones Ql (U) Negative Negative [facility] Nitrite Test strip Ql (U)Ord ered By: Savi Tavares on 09-27-2024 Nitrite Ql (U) Negative Negative [facility] Protein Test strip Ql (U)Ord ered By: Savi Tavares on 09-27-2024 Protein Ql (U) 30 mg/dl High Negative [facility] Urine blood detectionOrdered By: Savi Tavares on 09-27-2024 Urine Occult Blood 25 /ul High Negative [facility] Urine clarityOrdered By: Raheem Tavares on 09-27-2024 Clarity (U) Sl. Cloudy Clear [facility] Urine color determinationOrd ered By: Savi Tavares on 09-27-2024 Color (U) Yellow Yellow [facility] Urine cultureOrdered By: Maikel Pro on 09-27-2024 Bacteria identified Cx Nom (U) Culture exhibits no growth. [facility] Urine leukocyte esterase det ection by dipstickOrdered By: Savi Tavares on 09-27-2024 Leukocyte esterase Test strip Ql (U) 500 /ul High Negative [facility] Urine pHOrdered By: Savi Tavares on 09-27-2024 pH (U) 6.0 [pH] 5.0 - 8.0 [facility] Urine specific gravity measu rementOrdered By: Savi Tavares on 09-27-2024 Specific gravity (U) [Rel density] 1.010 1.002-1.[address] [facility] Urobilinogen Ql (U)Ordered B y: Savi Tavares on 09-27-2024 Urine Urobilinogen Normal mg/dl Normal [facility] Bilirubin Test strip Ql (U)O rdered By: Lasha Pro on 09-25-2024 Bilirubin Ql (U) Negative Negative [facility] Glucose Ql (U)Ordered By: Brittany Pro on 09-25-2024 Urine Glucose (UA) Normal mg/dl Normal [facility] Ketones Test strip Ql (U)Ord ered By: Lasha Pro on 09-25-2024 Ketones Ql (U) Negative Negative [facility] Nitrite Test strip Ql (U)Ord ered By: Lasha Pro on 09-25-2024 Nitrite Ql (U) Negative Negative [facility] Protein Test strip Ql (U)Ord ered By: Lasha Pro on 09-25-2024 Protein Ql (U) 15 mg/dl High Negative [facility] Urine blood detectionOrdered By: Lasha Pro on 09-25-2024 Urine Occult Blood 25 /ul High Negative [facility] Urine clarityOrdered By: Maikel Pro on 09-25-2024 Clarity (U) Sl. Cloudy Clear [facility] Urine color determinationOrd ered By: Lasha Pro on 09-25-2024 Color (U) Yellow Yellow [facility] Urine cultureOrdered By: Maikel Pro on 09-25-2024 Bacteria identified Cx Nom (U) Positive Abnormal [facility] Urine leukocyte esterase det ection by dipstickOrdered By: Lasha Pro on 09-25-2024 Leukocyte esterase Test strip Ql (U) 500 /ul High Negative [facility] Urine pHOrdered By: Jennie Pro on 09-25-2024 pH (U) 6.5 [pH] 5.0 - 8.0 [facility] Urine specific gravity measu rementOrdered By: Lasha Pro on 09-25-2024 Specific gravity (U) [Rel density] 1.005 1.002-1.[address] [facility] Urobilinogen Ql (U)Ordered B y: Lasha Pro on 09-25-2024 Urine Urobilinogen Normal mg/dl Normal [facility] TSH QnOrdered By: Lasha Pro on 09-18-2024 Thyroid Stimulating Hormone (TSH) 0.307 uIU/mL Low 0.358-3.[address] [facility] Bilirubin Test strip Ql (U)O rdered By: Lasha Pro on 09-14-2024 Bilirubin Ql (U) Negative Negative [facility] Glucose Ql (U)Ordered By: Brittany Pro on 09-14-2024 Urine Glucose (UA) Normal mg/dl Normal [facility] Ketones Test strip Ql (U)Ord ered By: Lasha Pro on 09-14-2024 Ketones Ql (U) Negative Negative [facility] Nitrite Test strip Ql (U)Ord ered By: Lasha Pro on 09-14-2024 Nitrite Ql (U) Positive High Negative [facility] Protein Test strip Ql (U)Ord ered By: Lasha Pro on 09-14-2024 Protein Ql (U) 15 mg/dl High Negative [facility] TSH QnOrdered By: Lasha Pro on 09-14-2024 Thyroid Stimulating Hormone (TSH) 0.734 uIU/mL 0.358-3.[address] [facility] Urine blood detectionOrdered By: Lasha Pro on 09-14-2024 Urine Occult Blood 25 /ul High Negative [facility] Urine clarityOrdered By: Maikel Pro on 09-14-2024 Clarity (U) Sl. Cloudy Clear [facility] Urine color determinationOrd ered By: Lasha Pro on 09-14-2024 Color (U) Yellow Yellow [facility] Urine cultureOrdered By: Maikel Pro on 09-14-2024 Bacteria identified Cx Nom (U) ESBL Escherichia coli Abnormal [facility] Urine leukocyte esterase det ection by dipstickOrdered By: Lasha Pro on 09-14-2024 Leukocyte esterase Test strip Ql (U) 500 /ul High Negative [facility] Urine pHOrdered By: Jennie Pro on 09-14-2024 pH (U) 6.5 [pH] 5.0 - 8.0 [facility] Urine specific gravity measu rementOrdered By: Lasha Pro on 09-14-2024 Specific gravity (U) [Rel density] 1.010 1.002-1.[address] [facility] Urobilinogen Ql (U)Ordered B y: Lasha Pro on 09-14-2024 Urine Urobilinogen Normal mg/dl Normal [facility] Bilirubin Test strip Ql (U)O rdered By: Lasha Pro on 09-03-2024 Bilirubin Ql (U) Negative Negative [facility] Epithelial cells.squamous LM Ql (Urine sed)Ordered By: Lasha Pro on 09-03-2024 Epithelial cells.squamous LM.HPF (Urine sed) [#/Area] 5 /[HPF] 5-10 [facility] Glucose Ql (U)Ordered By: Brittany Pro on 09-03-2024 Urine Glucose (UA) Normal mg/dl Normal [facility] Ketones Test strip Ql (U)Ord ered By: Lasha Pro on 09-03-2024 Ketones Ql (U) Negative Negative [facility] Microscopic analysis of urin e for red blood cells (RBC)Ordered By: Lasha Pro on 09-03-2024 Urine RBC 0-5 SEEN /hpf 0-5 [facility] Mucus LM Ql (Urine sed)Order ed By: Lasha Pro on 09-03-2024 Mucus Ql (Urine sed) 0 SEEN /hpf [facility] Nitrite Test strip Ql (U)Ord ered By: Lasha Pro on 09-03-2024 Nitrite Ql (U) Positive High Negative [facility] Protein Test strip Ql (U)Ord ered By: Lasha Pro on 09-03-2024 Protein Ql (U) 30 mg/dl High Negative [facility] Transitional cells LM Ql (Ur ine sed)Ordered By: Lasha Pro on 09-03-2024 Urine Transitional Epithelial Cells 0-5 SEEN /hpf 0-5 [facility] Urine blood detectionOrdered By: Lasha Pro on 09-03-2024 Urine Occult Blood 25 /ul High Negative [facility] Urine clarityOrdered By: Maikel Pro on 09-03-2024 Clarity (U) Sl. Cloudy Clear [facility] Urine color determinationOrd ered By: Lasha Pro on 09-03-2024 Color (U) Yellow Yellow [facility] Urine cultureOrdered By: Maikel Pro on 09-03-2024 Bacteria identified Cx Nom (U) Mixed Gram Pos & Gram Neg Org Abnormal [facility] Urine leukocyte esterase det ection by dipstickOrdered By: Lasha Pro on 09-03-2024 Leukocyte esterase Test strip Ql (U) 500 /ul High Negative [facility] Urine pHOrdered By: Jennie Pro on 09-03-2024 pH (U) 6.0 [pH] 5.0 - 8.0 [facility] Urine sediment bacteria coun t by microscopy (number/high power field)Ordered By: Lasha Pro on 09-03-2024 Bacteria LM.HPF (Urine sed) [#/Area] 0 /[HPF] None Seen [facility] Urine specific gravity measu rementOrdered By: Lasha Pro on 09-03-2024 Specific gravity (U) [Rel density] 1.015 1.002-1.[address] [facility] Urobilinogen Ql (U)Ordered B y: Lasha Pro on 09-03-2024 Urine Urobilinogen Normal mg/dl Normal [facility] White blood cell countOrdere d By: Lasha Pro on 09-03-2024 Urine WBC 50-100 SEEN /hpf 0-5 [facility] Yeast LM.HPF (Urine sed) [#/ Area]Ordered By: Lasha Pro on 09-03-2024 Urine Yeast 2+ /hpf None Seen [facility] High density lipoprotein (HD L) measurementOrdered By: Lasha Pro on 08-07-2024 Cholesterol in HDL [Mass/Vol] 62 mg/dL >40 [facility] Comment on above: The drugs N-Acetylcy steine and Metamizole may falsely depress this assay. Reference Range HDL <40 mg/dL Low HDL Cholesterol HDL >or= 60 mg/dL High HDL Cholesterol Low density lipoprotein (LDL ) cholesterol measurementOrdered By: Lasha Pro on 08-07-2024 Cholesterol in LDL [Mass/Vol] 45 mg/dL 0-130 [facility] Serum or plasma cholesterol measurement (mass/volume)Ordered By: Lasha Pro on 08-07-2024 Cholesterol [Mass/Vol] 133 mg/dL <200 [facility] Comment on above: <200 mg/dL Desirable 200-240 mg/dL Borderline >240 mg/dL High Risk TSH QnOrdered By: Lasha Pro on 08-07-2024 Thyroid Stimulating Hormone (TSH) 0.257 uIU/mL Low 0.358-3.[address] [facility] Triglycerides measurementOrd ered By: Lasha Pro on 08-07-2024 Triglyceride [Mass/Vol] 130 mg/dL <199 [facility] Comment on above: The drugs N-Acetylcy steine and Metamizole may falsely depress this assay.Serum Triglycerides Reference Interval Normal <150 mg/dL Borderline high 150 - 199 mg/dL High 200 - 499 mg/dL Very High > or = 500 mg/dL Very low density lipoprotein (VLDL) cholesterol measurementOrdered By: Lasha Pro on 08-07-2024 VLDL Cholesterol 26 mg/dL 5-40 [facility] .Auto Diffon 02-14-2024 Basophil, Absolute 0.1 10 3/mcL Normal 0.0-0.3 [facility] ([place] Comment on above: Performed By: #### M ORPH, CBC, DIFF #### [address] [address] Basophils/100 WBC (Bld) 2.1 % Normal 0.0-2.5 [facility] ([place] Comment on above: Performed By: #### M ORPH, CBC, DIFF #### [address] [address] Eosinophil, Absolute 0.2 10 3/mcL Normal 0.0-0.7 [facility] ([place]) Comment on above: Performed By: #### M ORPH, CBC, DIFF #### [address] [address] Eosinophils/100 WBC (Bld) 5.2 % Normal 0.0-6.0 [facility] ([place] Comment on above: Performed By: #### M ORPH, CBC, DIFF #### [address] [address] Lymphocyte, Absolute 1.2 10 3/mcL Normal 0.9-4.3 [facility] ([place] Comment on above: Performed By: #### M ORPH, CBC, DIFF #### [address] [address] Lymphocytes/100 WBC (Bld) 28.4 % Normal 20.0-40.0 [facility] ([place]) Comment on above: Performed By: #### M ORPH, CBC, DIFF #### [address] [address] Monocyte, Absolute 0.4 10 3/mcL Normal 0.1-1.4 [facility] ([place] Comment on above: Performed By: #### M ORPH, CBC, DIFF #### [address] [address] Monocytes/100 WBC (Bld) 10.7 % Normal 2.0-13.0 [facility] ([place]) Comment on above: Performed By: #### M ORPH, CBC, DIFF #### [address] [address] Neutrophils/100 WBC (Bld) 53.6 % Normal 50.0-75.0 [facility] ([place] Comment on above: Performed By: #### M ORPH, CBC, DIFF #### [address] [address] .GFRon 02-14-2024 GFR >60 Normal [facility] ([place] Comment on above: Result Comment: GFR Population [...] G, CBC, BMP, ADIFF, ANEU, GFR #### [address] [address] GFR Non- >60 Normal [facility] ([place] Comment on above: Result Comment: GFR Population [...] G, CBC, BMP, ADIFF, ANEU, GFR #### [address] [address] .NEUABSon 02-14-2024 Neutrophil, Absolute 2.2 10 3/mcL Low 2.3-8.1 [facility] ([place] Comment on above: Performed By: #### M ORPH, CBC, DIFF #### [address] [address] BMPon 02-14-2024 BUN/Creatinine Ratio 17.6 ratio Normal 10.0-22.0 [facility] ([place] Comment on above: Performed By: #### M ORPH, CBC, DIFF #### [address] [address] Calcium [Mass/Vol] 8.4 mg/dL Low 8.7-10.4 [facility] ([place]) Comment on above: Performed By: #### M ORPH, CBC, DIFF #### [address] [address] Chloride [Moles/Vol] 108 mmol/L Normal 98-110 [facility] ([place] Comment on above: Performed By: #### M ORPH, CBC, DIFF #### [address] [address] CO2 [Moles/Vol] 30 mmol/L Normal 22-32 [facility] ([place] Comment on above: Performed By: #### M ORPH, CBC, DIFF #### [address] [address] Creatinine [Mass/Vol] 0.51 mg/dL Normal 0.50-1.20 [facility] ([place]) Comment on above: Performed By: #### M ORPH, CBC, DIFF #### [address] [address] Electrolyte Balance 4.0 mEq/L Normal 4.0-15.0 [facility] ([place]) Comment on above: Performed By: #### M ORPH, CBC, DIFF #### [address] [address] Glucose [Mass/Vol] 100 mg/dL Normal 82-115 [facility] ([place] Comment on above: Performed By: #### M ORPH, CBC, DIFF #### [address] [address] Potassium [Moles/Vol] 3.7 mmol/L Normal 3.5-5.0 [facility] ([place] Comment on above: Performed By: #### M ORPH, CBC, DIFF #### [address] [address] Sodium [Moles/Vol] 142 mmol/L Normal 136-145 [facility] ([place] Comment on above: Performed By: #### M ORPH, CBC, DIFF #### [address] [address] Urea nitrogen [Mass/Vol] 9.0 mg/dL Normal 8.0-22.0 [facility] ([place] Comment on above: Performed By: #### M ORPH, CBC, DIFF #### [address] [address] CBCon 02-14-2024 Erythrocyte distribution width (RBC) [Ratio] 17.6 % High 11.5-15.5 [facility] ([place] Comment on above: Performed By: #### M ORPH, CBC, DIFF #### [address] [address] Hematocrit (Bld) [Volume fraction] 29.4 % Low 34.0-46.0 [facility] ([place] Comment on above: Performed By: #### M ORPH, CBC, DIFF #### [address] [address] Hgb 9.6 G/dL Low 12.0-16.0 [facility] ([place] Comment on above: Performed By: #### M ORPH, CBC, DIFF #### [address] [address] MCH (RBC) [Entitic mass] 30.7 pg Normal 27.0-33.0 [facility] ([place] Comment on above: Performed By: #### M ORPH, CBC, DIFF #### [address] [address] MCHC 32.7 G/dL Normal 32.0-36.0 [facility] ([place] Comment on above: Performed By: #### M ORPH, CBC, DIFF #### [address] [address] MCV (RBC) [Entitic vol] 94.0 fL Normal 80.0-99.0 [facility] ([place] Comment on above: Performed By: #### M ORPH, CBC, DIFF #### [address] [address] Platelet 209 10 3/mcL Normal 150-450 [facility] ([place] Comment on above: Performed By: #### M ORPH, CBC, DIFF #### [address] [address] Platelet mean volume (Bld) [Entitic vol] 7.0 fL Normal 6.6-10.5 [facility] ([place] Comment on above: Performed By: #### M ORPH, CBC, DIFF #### [address] [address] RBC 3.13 10 6/mcL Low 4.10-5.30 [facility] ([place] Comment on above: Performed By: #### M ORPH, CBC, DIFF #### [address] [address] WBC 4.2 10 3/mcL Low 4.5-10.8 [facility] ([place] Comment on above: Performed By: #### M ORPH, CBC, DIFF #### [address] [address] LABORATORYOrdered By: SYSTEM SYSTEM on 02-14-2024 Basophils (Bld) [#/Vol] 0.1 103/mcL Normal 0.0 - 0.3 10^3/mcL Workflow SS Basophils/100 WBC (Bld) 2.1 % Normal 0.0 - 2.5 % Workflow SS Calcium [Mass/Vol] 8.4 mg/dL Low [...] (S/P/Bld) [Vol rate/Area] ml/min/1.73sqm Invalid Interpretation Code [employer] [facility] S Comment on above: Interpretive Data: [...] (S/P/Bld) [Vol rate/Area] ml/min/1.73sqm Invalid Interpretation Code [employer] [facility] S Comment on above: Interpretive Data: [...] 29.4 % Low 34.0 - 46.0 % Workflow SS Hemoglobin (Bld) [Mass/Vol] 9.6 G/dL [...] - 10.8 10^3/mcL AH Workflow SS MGon 07-08-2024 Magnesium [Mass/Vol] 1.9 mg/dL Normal 1.6-2.4 [facility] ([place] Comment on above: Performed By: #### M ORPH, CBC, DIFF #### [address] [address] .Auto Diffon 02-12-2024 Basophil, Absolute 0.1 10 3/mcL Normal 0.0-0.3 [facility] ([place] Comment on above: Performed By: #### M ORPH, CBC, DIFF #### [address] [address] Basophils/100 WBC (Bld) 1.9 % Normal 0.0-2.5 [facility] ([place] Comment on above: Performed By: #### M ORPH, CBC, DIFF #### [address] [address] Eosinophil, Absolute 0.1 10 3/mcL Normal 0.0-0.7 [facility] ([place]) Comment on above: Performed By: #### M ORPH, CBC, DIFF #### [address] [address] Eosinophils/100 WBC (Bld) 3.5 % Normal 0.0-6.0 [facility] ([place] Comment on above: Performed By: #### M ORPH, CBC, DIFF #### [address] [address] Lymphocyte, Absolute 1.1 10 3/mcL Normal 0.9-4.3 [facility] ([place] Comment on above: Performed By: #### M ORPH, CBC, DIFF #### [address] [address] Lymphocytes/100 WBC (Bld) 26.8 % Normal 20.0-40.0 [facility] ([place] Comment on above: Performed By: #### M ORPH, CBC, DIFF #### [address] [address] Monocyte, Absolute 0.4 10 3/mcL Normal 0.1-1.4 [facility] ([place] Comment on above: Performed By: #### M ORPH, CBC, DIFF #### [address] [address] Monocytes/100 WBC (Bld) 10.7 % Normal 2.0-13.0 [facility] ([place] Comment on above: Performed By: #### M ORPH, CBC, DIFF #### [place] [id number] Neutrophils/100 WBC (Bld) 57.1 % Normal 50.0-75.0 [facility] ([place] Comment on above: Performed By: #### M ORPH, CBC, DIFF #### [place] [id number] .NEUABSon 02-12-2024 Neutrophil, Absolute 2.3 10 3/mcL Normal 2.3-8.1 [facility] ([place] Comment on above: Performed By: #### M ORPH, CBC, DIFF #### [place] [address] CBCon 02-12-2024 Erythrocyte distribution width (RBC) [Ratio] 17.3 % High 11.5-15.5 [facility] ([place] Comment on above: Performed By: #### M ORPH, CBC, DIFF #### [place] [address] Hematocrit (Bld) [Volume fraction] 29.6 % Low 34.0-46.0 [facility] ([place] Comment on above: Performed By: #### M ORPH, CBC, DIFF #### [place] [address] Hgb 9.6 G/dL Low 12.0-16.0 [facility] ([place] Comment on above: Performed By: #### M ORPH, CBC, DIFF #### [place] [address] MCH (RBC) [Entitic mass] 30.7 pg Normal 27.0-33.0 [facility] ([place] Comment on above: Performed By: #### M ORPH, CBC, DIFF #### [place] [address] MCHC 32.6 G/dL Normal 32.0-36.0 [facility] ([place] Comment on above: Performed By: #### M ORPH, CBC, DIFF #### [place] [id number] MCV (RBC) [Entitic vol] 94.0 fL Normal 80.0-99.0 [facility] ([place] Comment on above: Performed By: #### M ORPH, CBC, DIFF #### [place] [address] Platelet 215 10 3/mcL Normal 150-450 [facility] ([place] Comment on above: Performed By: #### M ORPH, CBC, DIFF #### [place] [address] Platelet mean volume (Bld) [Entitic vol] 7.5 fL Normal 6.6-10.5 [facility] ([place] Comment on above: Performed By: #### M ORPH, CBC, DIFF #### [place] [address] RBC 3.15 10 6/mcL Low 4.10-5.30 [facility] ([place] Comment on above: Performed By: #### M ORPH, CBC, DIFF #### [place] [address] WBC 4.1 10 3/mcL Low 4.5-10.8 [facility] ([place] Comment on above: Performed By: #### M ORPH, CBC, DIFF #### [place] [address] LABORATORYOrdered By: SYSTEM SYSTEM on 02-12-2024 Basophils [...] 02/11/2024 5:26:58 PM Ordering Provider: DRE Woody [facility] ([place] HHon 02-10-2024 Hematocrit (Bld) [Volume fraction] 29.5 % Low 34.0-46.0 [facility] ([place] Comment on above: Performed By: #### U A #### [address] [address] Hgb 9.9 G/dL Low 12.0-16.0 [facility] ([place] Comment on above: Performed By: #### U A #### [address] [address] LABORATORYOrdered By: SYSTEM SYSTEM on 02-10-2024 Hematocrit (Bld) [Volume fraction] 29.5 % Low 34.0 - 46.0 % Workflow SS Hemoglobin (Bld) [Mass/Vol] 9.9 G/dL Low 12.0 - 16.0 G/dL Workflow SS .Manual Diffon 02-09-2024 Basophil %, Manual 2.0 % Normal 0.0-2.5 [facility] ([place]) Comment on above: Performed By: #### M ORPH, CBC, DIFF #### [address] [address] Basophil, Abs Manual 0.1 10 3/mcL Normal 0.0-0.3 [facility] ([place]) Comment on above: Performed By: #### M ORPH, CBC, DIFF #### [address] [address] Eosinophil %, Manual 5.0 % Normal 0.0-6.0 [facility] ([place] Comment on above: Performed By: #### M ORPH, CBC, DIFF #### [address] [address] Eosinophil, Abs Manual 0.4 10 3/mcL Normal 0.0-0.7 [facility] ([place] Comment on above: Performed By: #### M ORPH, CBC, DIFF #### [address] [address] Lymphocyte %, Manual 32.0 % Normal 20.0-40.0 [facility] ([place] Comment on above: Performed By: #### M ORPH, CBC, DIFF #### [address] [address] Lymphocyte, Abs Manual 2.2 10 3/mcL Normal 0.9-4.3 [facility] ([place] Comment on above: Performed By: #### M ORPH, CBC, DIFF #### [address] [address] Monocyte %, Manual 7.0 % Normal 2.0-13.0 [facility] ([place]) Comment on above: Performed By: #### M ORPH, CBC, DIFF #### [address] [address] Monocyte, Abs Manual 0.5 10 3/mcL Normal 0.1-1.4 [facility] ([place] Comment on above: Performed By: #### M ORPH, CBC, DIFF #### [address] [address] Neutrophil %, Manual 54.0 % Normal 50.0-75.0 [facility] ([place] Comment on above: Performed By: #### M ORPH, CBC, DIFF #### [address] [address] Neutrophil, Abs Manual 3.7 10 3/mcL Normal 2.3-8.1 [facility] ([place] Comment on above: Performed By: #### M ORPH, CBC, DIFF #### [address] [address] Nucleated RBC 0.0 /100 WBC Normal [facility] ([place] Comment on above: Performed By: #### M ORPH, CBC, DIFF #### [address] [address] .Morphon 02-09-2024 Anisocytosis Ql (Bld) 1+ Normal [facility] ([place] Comment on above: Performed By: #### M ORPH, CBC, DIFF #### [address] [address] Platelet Estimate Normal Normal [facility] ([place] Comment on above: Performed By: #### M ORPH, CBC, DIFF #### [address] [address] Polychrom 1+ Normal [facility] ([place] Comment on above: Performed By: #### M ORPH, CBC, DIFF #### [address] [address] CBCon 02-09-2024 Platelet 220 10 3/mcL Normal 150-450 [facility] ([place] Comment on above: Performed By: #### M ORPH, CBC, DIFF #### [place] [address] Platelet mean volume (Bld) [Entitic vol] 7.5 fL Normal 6.6-10.5 [facility] ([place] Comment on above: Performed By: #### M ORPH, CBC, DIFF #### [place] [address] WBC 7.0 10 3/mcL Normal 4.5-10.8 [facility] ([place] Comment on above: Performed By: #### M ORPH, CBC, DIFF #### [place] [address] Erythrocyte distribution width (RBC) [Ratio] 16.9 % High 11.5-15.5 [facility] ([place] Comment on above: Performed By: #### M ORPH, CBC, DIFF #### [place] [id number] Hematocrit (Bld) [Volume fraction] 29.8 % Low 34.0-46.0 [facility] ([place] Comment on above: Performed By: #### M ORPH, CBC, DIFF #### [place] [address] Hgb 9.8 G/dL Low 12.0-16.0 [facility] ([place] Comment on above: Performed By: #### M ORPH, CBC, DIFF #### [place] [address] MCH (RBC) [Entitic mass] 30.8 pg Normal 27.0-33.0 [facility] ([place] Comment on above: Performed By: #### M ORPH, CBC, DIFF #### [place] [address] MCHC 33.0 G/dL Normal 32.0-36.0 [facility] ([place] Comment on above: Performed By: #### M ORPH, CBC, DIFF #### [place] [address] MCV (RBC) [Entitic vol] 93.3 fL Normal 80.0-99.0 [facility] ([place] Comment on above: Performed By: #### M ORPH, CBC, DIFF #### [place] [address] RBC 3.19 10 6/mcL Low 4.10-5.30 [facility] ([place] Comment on above: Performed By: #### M ORPH, CBC, DIFF #### [place] [address] LABORATORYOrdered By: SYSTEM SYSTEM on 02-09-2024 Anisocytosis [...] 0.1 10 3/mcL Normal 0.0-0.3 [facility] ([place] Comment on above: Performed By: #### M G, CBC, BMP, ADIFF, ANEU, GFR #### [address] [address] Basophils/100 WBC (Bld) 2.3 % Normal 0.0-2.5 [facility] ([place] Comment on above: Performed By: #### M G, CBC, BMP, ADIFF, ANEU, GFR #### [address] [address] Eosinophil, Absolute 0.1 10 3/mcL Normal 0.0-0.7 [facility] ([place]) Comment on above: Performed By: #### M G, CBC, BMP, ADIFF, ANEU, GFR #### [address] [address] Eosinophils/100 WBC (Bld) 2.9 % Normal 0.0-6.0 [facility] ([place] Comment on above: Performed By: #### M G, CBC, BMP, ADIFF, ANEU, GFR #### [address] [address] Lymphocyte, Absolute 0.8 10 3/mcL Low 0.9-4.3 [facility] ([place] Comment on above: Performed By: #### M G, CBC, BMP, ADIFF, ANEU, GFR #### [address] [address] Lymphocytes/100 WBC (Bld) 20.7 % Normal 20.0-40.0 [facility] [place] Comment on above: Performed By: #### M G, CBC, BMP, ADIFF, ANEU, GFR #### [address] [address] Monocyte, Absolute 0.4 10 3/mcL Normal 0.1-1.4 [facility] ([place]) Comment on above: Performed By: #### M G, CBC, BMP, ADIFF, ANEU, GFR #### [address] [address] Monocytes/100 WBC (Bld) 10.1 % Normal 2.0-13.0 [facility] ([place]) Comment on above: Performed By: #### M G, CBC, BMP, ADIFF, ANEU, GFR #### [address] [address] Neutrophils/100 WBC (Bld) 64.0 % Normal 50.0-75.0 [facility] ([place]) Comment on above: Performed By: #### M G, CBC, BMP, ADIFF, ANEU, GFR #### [address] [address] .GFRon 02-08-2024 GFR >60 Normal [facility] ([place]) Comment on above: Result Comment: GFR Population [...] G, CBC, BMP, ADIFF, ANEU, GFR #### [address] [address] GFR Non- >60 Normal [facility] ([place]) Comment on above: Result Comment: GFR Population [...] G, CBC, BMP, ADIFF, ANEU, GFR #### [address] [address] .NEUABSon 02-08-2024 Neutrophil, Absolute 2.6 10 3/mcL Normal 2.3-8.1 [facility] ([place]) Comment on above: Performed By: #### M G, CBC, BMP, ADIFF, ANEU, GFR #### [address] [address] BMPon 02-08-2024 BUN/Creatinine Ratio 14.5 ratio Normal 10.0-22.0 [facility] ([place]) Comment on above: Performed By: #### M G, CBC, BMP, ADIFF, ANEU, GFR #### [address] [address] Calcium [Mass/Vol] 8.5 mg/dL Low 8.7-10.4 [facility] ([place]) Comment on above: Performed By: #### M G, CBC, BMP, ADIFF, ANEU, GFR #### [address] [address] Chloride [Moles/Vol] 107 mmol/L Normal 98-110 [facility] ([place]) Comment on above: Performed By: #### M G, CBC, BMP, ADIFF, ANEU, GFR #### [address] [address] CO2 [Moles/Vol] 26 mmol/L Normal 22-32 [facility] ([place]) Comment on above: Performed By: #### M G, CBC, BMP, ADIFF, ANEU, GFR #### [address] [address] Creatinine [Mass/Vol] 0.62 mg/dL Normal 0.50-1.20 [facility] ([place]) Comment on above: Performed By: #### M G, CBC, BMP, ADIFF, ANEU, GFR #### [address] [address] Electrolyte Balance 9.0 mEq/L Normal 4.0-15.0 [facility] ([place]) Comment on above: Performed By: #### M G, CBC, BMP, ADIFF, ANEU, GFR #### [address] [address] Glucose [Mass/Vol] 108 mg/dL Normal 82-115 [facility] ([place]) Comment on above: Performed By: #### M G, CBC, BMP, ADIFF, ANEU, GFR #### [address] [address] Potassium [Moles/Vol] 4.0 mmol/L Normal 3.5-5.0 [facility] ([place]) Comment on above: Performed By: #### M G, CBC, BMP, ADIFF, ANEU, GFR #### [address] [address] Sodium [Moles/Vol] 142 mmol/L Normal 136-145 [facility] ([place]) Comment on above: Performed By: #### M G, CBC, BMP, ADIFF, ANEU, GFR #### [address] [address] Urea nitrogen [Mass/Vol] 9.0 mg/dL Normal 8.0-22.0 [facility] ([place]) Comment on above: Performed By: #### M G, CBC, BMP, ADIFF, ANEU, GFR #### [address] [address] CBCon 02-08-2024 Erythrocyte distribution width (RBC) [Ratio] 16.4 % High 11.5-15.5 [facility] ([place]) Comment on above: Performed By: #### M G, CBC, BMP, ADIFF, ANEU, GFR #### [address] [address] Hematocrit (Bld) [Volume fraction] 32.7 % Low 34.0-46.0 [facility] ([place]) Comment on above: Performed By: #### M G, CBC, BMP, ADIFF, ANEU, GFR #### [address] [address] Hgb 10.8 G/dL Low 12.0-16.0 [facility] ([place]) Comment on above: Performed By: #### M G, CBC, BMP, ADIFF, ANEU, GFR #### [address] [address] MCH (RBC) [Entitic mass] 30.9 pg Normal 27.0-33.0 [facility] ([place]) Comment on above: Performed By: #### M G, CBC, BMP, ADIFF, ANEU, GFR #### [place] [address] MCHC 33.0 G/dL Normal 32.0-36.0 [facility] ([place]) Comment on above: Performed By: #### M G, CBC, BMP, ADIFF, ANEU, GFR #### [place] [address] MCV (RBC) [Entitic vol] 93.5 fL Normal 80.0-99.0 [facility] ([place]) Comment on above: Performed By: #### M G, CBC, BMP, ADIFF, ANEU, GFR #### [place] [address] Platelet 224 10 3/mcL Normal 150-450 [facility] ([place]) Comment on above: Performed By: #### M G, CBC, BMP, ADIFF, ANEU, GFR #### [place] [address] Platelet mean volume (Bld) [Entitic vol] 7.3 fL Normal 6.6-10.5 [facility] ([place]) Comment on above: Performed By: #### M G, CBC, BMP, ADIFF, ANEU, GFR #### [place] [address] RBC 3.50 10 6/mcL Low 4.10-5.30 [facility] ([place]) Comment on above: Performed By: #### M G, CBC, BMP, ADIFF, ANEU, GFR #### [address] [place] [address] [place], [place] [address] WBC 4.1 10 3/mcL Low 4.5-10.8 [facility] ([place]) Comment on above: Performed By: #### M G, CBC, BMP, ADIFF, ANEU, GFR #### [address] [place] [address] [place], [place] [address] LABORATORYOrdered By: SYSTEM SYSTEM on 02-08-2024 Basophils (Bld) [#/Vol] 0.1 103/mcL Normal 0.0 - 0.3 10^3/mcL Workflow SS Basophils/100 WBC (Bld) 2.3 % Normal 0.0 - 2.5 % Workflow SS Calcium [Mass/Vol] 8.5 mg/dL Low [...] 14.5 ratio Normal 10.0 - 22.0 ratio AH ADM SS MGon 02-08-2024 Magnesium [Mass/Vol] 2.1 mg/dL Normal 1.6-2.4 [facility] ([place]) Comment on above: Performed By: #### M G, CBC, BMP, ADIFF, ANEU, GFR #### [address] [address] .Auto Diffon 02-07-2024 Basophil, Absolute 0.1 10 3/mcL Normal 0.0-0.3 [facility] ([place]) Comment on above: Performed By: #### A MANJULA, CBC, ADIFF, GFR, BMP #### [address] [address] Basophils/100 WBC (Bld) 1.4 % Normal 0.0-2.5 [facility] ([place]) Comment on above: Performed By: #### A MANJULA, CBC, ADIFF, GFR, BMP #### [address] [address] Eosinophil, Absolute 0.1 10 3/mcL Normal 0.0-0.7 [facility] ([place]) Comment on above: Performed By: #### A MANJULA, CBC, ADIFF, GFR, BMP #### [address] [address] Eosinophils/100 WBC (Bld) 2.6 % Normal 0.0-6.0 [facility] ([place]) Comment on above: Performed By: #### A MANJULA, CBC, ADIFF, GFR, BMP #### [address] [address] Lymphocyte, Absolute 1.1 10 3/mcL Normal 0.9-4.3 [facility] ([place]) Comment on above: Performed By: #### A MANJULA, CBC, ADIFF, GFR, BMP #### [address] [address] Lymphocytes/100 WBC (Bld) 23.2 % Normal 20.0-40.0 [facility] ([place]) Comment on above: Performed By: #### A MANJULA, CBC, ADIFF, GFR, BMP #### [address] [address] Monocyte, Absolute 0.5 10 3/mcL Normal 0.1-1.4 [facility] ([place]) Comment on above: Performed By: #### A MANJULA, CBC, ADIFF, GFR, BMP #### [address] [address] Monocytes/100 WBC (Bld) 10.1 % Normal 2.0-13.0 [facility] ([place]) Comment on above: Performed By: #### A MANJULA, CBC, ADIFF, GFR, BMP #### [address] [address] Neutrophils/100 WBC (Bld) 62.7 % Normal 50.0-75.0 [facility] ([place]) Comment on above: Performed By: #### A MANJULA, CBC, ADIFF, GFR, BMP #### [address] [address] .GFRon 02-07-2024 GFR >60 Normal [facility] ([place]) Comment on above: Result Comment: GFR Population [...] MANJULA, CBC, ADIFF, GFR, BMP #### [address] [address] GFR Non- >60 Normal [facility] ([place]) Comment on above: Result Comment: GFR Population [...] MANJULA, CBC, ADIFF, GFR, BMP #### [address] [address] .NEUABSon 02-07-2024 Neutrophil, Absolute 2.8 10 3/mcL Normal 2.3-8.1 [facility] ([place]) Comment on above: Performed By: #### A MANJULA, CBC, ADIFF, GFR, BMP #### [address] [address] BMPon 02-07-2024 BUN/Creatinine Ratio 14.3 ratio Normal 10.0-22.0 [facility] ([place]) Comment on above: Performed By: #### A MAJNULA, CBC, ADIFF, GFR, BMP #### [address] [address] Calcium [Mass/Vol] 8.4 mg/dL Low 8.7-10.4 [facility] ([place]) Comment on above: Performed By: #### A MANJULA, CBC, ADIFF, GFR, BMP #### [address] [address] Chloride [Moles/Vol] 107 mmol/L Normal 98-110 [facility] ([place]) Comment on above: Performed By: #### A MANJULA, CBC, ADIFF, GFR, BMP #### [address] [address] CO2 [Moles/Vol] 27 mmol/L Normal 22-32 [facility] ([place]) Comment on above: Performed By: #### A MANJULA, CBC, ADIFF, GFR, BMP #### [address] [address] Creatinine [Mass/Vol] 0.70 mg/dL Normal 0.50-1.20 [facility] ([place]) Comment on above: Performed By: #### A MANJULA, CBC, ADIFF, GFR, BMP #### [address] [address] Electrolyte Balance 7.0 mEq/L Normal 4.0-15.0 [facility] ([place]) Comment on above: Performed By: #### A MANJULA, CBC, ADIFF, GFR, BMP #### [address] [address] Glucose [Mass/Vol] 94 mg/dL Normal 82-115 [facility] ([place]) Comment on above: Performed By: #### A MANJULA, CBC, ADIFF, GFR, BMP #### [address] [address] Potassium [Moles/Vol] 4.2 mmol/L Normal 3.5-5.0 [facility] ([place]) Comment on above: Performed By: #### A MANJULA, CBC, ADIFF, GFR, BMP #### [address] [address] Sodium [Moles/Vol] 141 mmol/L Normal 136-145 [facility] ([place]) Comment on above: Performed By: #### A MANJULA, CBC, ADIFF, GFR, BMP #### [address] [address] Urea nitrogen [Mass/Vol] 10.0 mg/dL Normal 8.0-22.0 [facility] ([place]) Comment on above: Performed By: #### A MANJULA, CBC, ADIFF, GFR, BMP #### [address] [address] CBCon 02-07-2024 Erythrocyte distribution width (RBC) [Ratio] 16.2 % High 11.5-15.5 [facility] ([place]) Comment on above: Performed By: #### A MANJULA, CBC, ADIFF, GFR, BMP #### [address] [address] Hematocrit (Bld) [Volume fraction] 32.8 % Low 34.0-46.0 [facility] ([place]) Comment on above: Performed By: #### A MANJULA, CBC, ADIFF, GFR, BMP #### [address] [address] Hgb 10.7 G/dL Low 12.0-16.0 [facility] ([place]) Comment on above: Performed By: #### A MANJULA, CBC, ADIFF, GFR, BMP #### [address] [address] MCH (RBC) [Entitic mass] 30.6 pg Normal 27.0-33.0 [facility] ([place]) Comment on above: Performed By: #### A MANJULA, CBC, ADIFF, GFR, BMP #### [address] [address] MCHC 32.7 G/dL Normal 32.0-36.0 [facility] ([place]) Comment on above: Performed By: #### A MANJULA, CBC, ADIFF, GFR, BMP #### [address] [address] MCV (RBC) [Entitic vol] 93.6 fL Normal 80.0-99.0 [facility] ([place]) Comment on above: Performed By: #### A MANJULA, CBC, ADIFF, GFR, BMP #### [address] [address] Platelet 215 10 3/mcL Normal 150-450 [facility] ([place]) Comment on above: Performed By: #### A MANJULA, CBC, ADIFF, GFR, BMP #### [address] [address] Platelet mean volume (Bld) [Entitic vol] 7.5 fL Normal 6.6-10.5 [facility] ([place]) Comment on above: Performed By: #### A MANJULA, CBC, ADIFF, GFR, BMP #### [address] [place] [address] [place], [place] [address] RBC 3.50 10 6/mcL Low 4.10-5.30 [facility] ([place]) Comment on above: Performed By: #### A MANJULA, CBC, ADIFF, GFR, BMP #### [address] [place] [address] [place], [place] [address] WBC 4.5 10 3/mcL Normal 4.5-10.8 [facility] ([place]) Comment on above: Performed By: #### A MANJULA, CBC, ADIFF, GFR, BMP #### [address] [address] LABORATORYOrdered By: SYSTEM SYSTEM on 02-07-2024 Calcium [...] [Mass/Vol] 1.9 mg/dL Normal 1.6-2.4 [facility] ([place]) Comment on above: Performed By: #### A MANJULA, CBC, ADIFF, GFR, BMP #### [place] [address] [place], [place] [address] .Auto Diffon 02-06-2024 Basophil, Absolute 0.1 10 3/mcL Normal 0.0-0.3 [facility] ([place]) Comment on above: Performed By: #### M ORPH, CBC, DIFF #### [facility] [address] [place] [address] Basophils/100 WBC (Bld) 1.5 % Normal 0.0-2.5 [facility] ([place]) Comment on above: Performed By: #### M ORPH, CBC, DIFF #### [address] [address] Eosinophil, Absolute 0.1 10 3/mcL Normal 0.0-0.7 [facility] ([place]) Comment on above: Performed By: #### M ORPH, CBC, DIFF #### [address] [address] Eosinophils/100 WBC (Bld) 2.6 % Normal 0.0-6.0 [facility] ([place]) Comment on above: Performed By: #### M ORPH, CBC, DIFF #### [address] [address] Lymphocyte, Absolute 0.9 10 3/mcL Normal 0.9-4.3 [facility] ([place]) Comment on above: Performed By: #### M ORPH, CBC, DIFF #### [address] [address] Lymphocytes/100 WBC (Bld) 22.0 % Normal 20.0-40.0 [facility] ([place]) Comment on above: Performed By: #### M ORPH, CBC, DIFF #### [address] [address] Monocyte, Absolute 0.4 10 3/mcL Normal 0.1-1.4 [facility] ([place]) Comment on above: Performed By: #### M ORPH, CBC, DIFF #### [address] [address] Monocytes/100 WBC (Bld) 9.3 % Normal 2.0-13.0 [facility] ([place]) Comment on above: Performed By: #### M ORPH, CBC, DIFF #### [address] [address] Neutrophils/100 WBC (Bld) 64.6 % Normal 50.0-75.0 [facility] ([place]) Comment on above: Performed By: #### M ORPH, CBC, DIFF #### [address] [address] .GFRon 02-06-2024 GFR >60 Normal [facility] ([place]) Comment on above: Result Comment: GFR Population [...] By: #### M ORPH, CBC, DIFF #### [address] [address] GFR Non- >60 Normal [facility] ([place]) Comment on above: Result Comment: GFR Population [...] By: #### M ORPH, CBC, DIFF #### [address] [address] .NEUABSon 02-06-2024 Neutrophil, Absolute 2.7 10 3/mcL Normal 2.3-8.1 [facility] ([place]) Comment on above: Performed By: #### M ORPH, CBC, DIFF #### [address] [address] BMPon 02-06-2024 BUN/Creatinine Ratio 14.8 ratio Normal 10.0-22.0 [facility] ([place]) Comment on above: Performed By: #### M ORPH, CBC, DIFF #### [address] [address] Calcium [Mass/Vol] 8.4 mg/dL Low 8.7-10.4 [facility] ([place]) Comment on above: Performed By: #### M ORPH, CBC, DIFF #### [address] [address] Chloride [Moles/Vol] 107 mmol/L Normal 98-110 [facility] ([place]) Comment on above: Performed By: #### M ORPH, CBC, DIFF #### [address] [address] CO2 [Moles/Vol] 29 mmol/L Normal 22-32 [facility] ([place]) Comment on above: Performed By: #### M ORPH, CBC, DIFF #### [address] [address] Creatinine [Mass/Vol] 0.61 mg/dL Normal 0.50-1.20 [facility] ([place]) Comment on above: Performed By: #### M ORPH, CBC, DIFF #### [address] [address] Electrolyte Balance 4.0 mEq/L Normal 4.0-15.0 [facility] ([place]) Comment on above: Performed By: #### M ORPH, CBC, DIFF #### [address] [address] Glucose [Mass/Vol] 93 mg/dL Normal 82-115 [facility] ([place]) Comment on above: Performed By: #### M ORPH, CBC, DIFF #### [address] [address] Potassium [Moles/Vol] 4.1 mmol/L Normal 3.5-5.0 [facility] ([place]) Comment on above: Performed By: #### M ORPH, CBC, DIFF #### [address] [address] Sodium [Moles/Vol] 140 mmol/L Normal 136-145 [facility] ([place]) Comment on above: Performed By: #### M ORPH, CBC, DIFF #### [place] [address] Urea nitrogen [Mass/Vol] 9.0 mg/dL Normal 8.0-22.0 [facility] ([place]) Comment on above: Performed By: #### M ORPH, CBC, DIFF #### [place] [address] CBCon 02-06-2024 Erythrocyte distribution width (RBC) [Ratio] 16.3 % High 11.5-15.5 [facility] ([place]) Comment on above: Performed By: #### M ORPH, CBC, DIFF #### [place] [address] Hematocrit (Bld) [Volume fraction] 28.6 % Low 34.0-46.0 [facility] ([place]) Comment on above: Performed By: #### M ORPH, CBC, DIFF #### [place] [address] Hgb 9.5 G/dL Low 12.0-16.0 [facility] ([place]) Comment on above: Performed By: #### M ORPH, CBC, DIFF #### [place] [address] MCH (RBC) [Entitic mass] 30.7 pg Normal 27.0-33.0 [facility] ([place]) Comment on above: Performed By: #### M ORPH, CBC, DIFF #### [place] [address] MCHC 33.4 G/dL Normal 32.0-36.0 [facility] ([place]) Comment on above: Performed By: #### M ORPH, CBC, DIFF #### [place] [address] MCV (RBC) [Entitic vol] 92.1 fL Normal 80.0-99.0 [facility] ([place]) Comment on above: Performed By: #### M ORPH, CBC, DIFF #### [address] [address] Platelet 219 10 3/mcL Normal 150-450 [facility] ([place]) Comment on above: Performed By: #### M ORPH, CBC, DIFF #### [address] [address] Platelet mean volume (Bld) [Entitic vol] 7.4 fL Normal 6.6-10.5 [facility] ([place]) Comment on above: Performed By: #### M ORPH, CBC, DIFF #### [address] [address] RBC 3.10 10 6/mcL Low 4.10-5.30 [facility] ([place]) Comment on above: Performed By: #### M ORPH, CBC, DIFF #### [address] [address] WBC 4.2 10 3/mcL Low 4.5-10.8 [facility] ([place]) Comment on above: Performed By: #### M ORPH, CBC, DIFF #### [address] [address] MGon 02-06-2024 Magnesium [Mass/Vol] 2.0 mg/dL Normal 1.6-2.4 [facility] ([place]) Comment on above: Performed By: #### M ORPH, CBC, DIFF #### [address] [address] .Auto Diffon 02-05-2024 Basophil, Absolute 0.0 10 3/mcL Normal 0.0-0.3 [facility] ([place]) Comment on above: Performed By: #### M ORPH, CBC, DIFF #### [address] [address] Basophils/100 WBC (Bld) 1.5 % Normal 0.0-2.5 [facility] ([place]) Comment on above: Performed By: #### M ORPH, CBC, DIFF #### [address] [address] Eosinophil, Absolute 0.1 10 3/mcL Normal 0.0-0.7 [facility] ([place]) Comment on above: Performed By: #### M ORPH, CBC, DIFF #### [address] [address] Eosinophils/100 WBC (Bld) 3.4 % Normal 0.0-6.0 [facility] ([place]) Comment on above: Performed By: #### M ORPH, CBC, DIFF #### [address] [address] Lymphocyte, Absolute 0.8 10 3/mcL Low 0.9-4.3 [facility] ([place]) Comment on above: Performed By: #### M ORPH, CBC, DIFF #### [address] [address] Lymphocytes/100 WBC (Bld) 26.8 % Normal 20.0-40.0 [facility] ([place]) Comment on above: Performed By: #### M ORPH, CBC, DIFF #### [address] [address] Monocyte, Absolute 0.3 10 3/mcL Normal 0.1-1.4 [facility] ([place]) Comment on above: Performed By: #### M ORPH, CBC, DIFF #### [address] [address] Monocytes/100 WBC (Bld) 10.9 % Normal 2.0-13.0 [facility] ([place]) Comment on above: Performed By: #### M ORPH, CBC, DIFF #### [address] [address] Neutrophils/100 WBC (Bld) 57.4 % Normal 50.0-75.0 [facility] ([place]) Comment on above: Performed By: #### M ORPH, CBC, DIFF #### [address] [address] .GFRon 02-05-2024 GFR >60 Normal [facility] ([place]) Comment on above: Result Comment: GFR [...] By: #### M ORPH, CBC, DIFF #### [address] [address] GFR Non- >60 Normal [facility] ([place]) Comment on above: Result Comment: GFR Population [...] By: #### M ORPH, CBC, DIFF #### [address] [address] .NEUABSon 02-05-2024 Neutrophil, Absolute 1.8 10 3/mcL Low 2.3-8.1 [facility] ([place]) Comment on above: Performed By: #### M ORPH, CBC, DIFF #### [address] [address] BMPon 02-05-2024 BUN/Creatinine Ratio 20.3 ratio Normal 10.0-22.0 [facility] ([place]) Comment on above: Order Comment: Yogesh redd for 0501 the morning of patient admission. Performed By: #### M ORPH, CBC, DIFF #### [address] [address] Calcium [Mass/Vol] 8.3 mg/dL Low 8.7-10.4 [facility] ([place]) Comment on above: Order Comment: Routi ne for 0501 the morning of patient admission. Performed By: #### M ORPH, CBC, DIFF #### [place] [id number] Chloride [Moles/Vol] 108 mmol/L Normal 98-110 [facility] ([place]) Comment on above: Order Comment: Routi ne for 0501 the morning of patient admission. Performed By: #### M ORPH, CBC, DIFF #### [place] [phone] CO2 [Moles/Vol] 27 mmol/L Normal 22-32 [facility] ([place]) Comment on above: Order Comment: Routi ne for 0501 the morning of patient admission. Performed By: #### M ORPH, CBC, DIFF #### [place] [id number] Creatinine [Mass/Vol] 0.59 mg/dL Normal 0.50-1.20 [facility] ([place]) Comment on above: Order Comment: Routi ne for 0501 the morning of patient admission. Performed By: #### M ORPH, CBC, DIFF #### [place] [phone] Electrolyte Balance 7.0 mEq/L Normal 4.0-15.0 [facility] ([place]) Comment on above: Order Comment: Routi ne for 0501 the morning of patient admission. Performed By: #### M ORPH, CBC, DIFF #### [place] [phone] Glucose [Mass/Vol] 85 mg/dL Normal 82-115 [facility] ([place]) Comment on above: Order Comment: Routi ne for 0501 the morning of patient admission. Performed By: #### M ORPH, CBC, DIFF #### [place] [phone] Potassium [Moles/Vol] 4.1 mmol/L Normal 3.5-5.0 [facility] ([place]) Comment on above: Order Comment: Routi ne for 0501 the morning of patient admission. Performed By: #### M ORPH, CBC, DIFF #### [place] [phone] Sodium [Moles/Vol] 142 mmol/L Normal 136-145 [facility] ([place]) Comment on above: Order Comment: Routi ne for 0501 the morning of patient admission. Performed By: #### M ORPH, CBC, DIFF #### [place] [phone] Urea nitrogen [Mass/Vol] 12.0 mg/dL Normal 8.0-22.0 [facility] ([place]) Comment on above: Order Comment: Routi ne for 0501 the morning of patient admission. Performed By: #### M ORPH, CBC, DIFF #### [place] [phone] CBCon 02-05-2024 Erythrocyte distribution width (RBC) [Ratio] 16.1 % High 11.5-15.5 [facility] ([place]) Comment on above: Order Comment: Routi ne for 0501 the morning of patient admission. Performed By: #### M ORPH, CBC, DIFF #### [place] [address] Hematocrit (Bld) [Volume fraction] 30.3 % Low 34.0-46.0 [facility] ([place]) Comment on above: Order Comment: Routi ne for 0501 the morning of patient admission. Performed By: #### M ORPH, CBC, DIFF #### [place] [phone] Hgb 10.0 G/dL Low 12.0-16.0 [facility] ([place]) Comment on above: Order Comment: Routi ne for 0501 the morning of patient admission. Performed By: #### M ORPH, CBC, DIFF #### [place] [phone] MCH (RBC) [Entitic mass] 30.6 pg Normal 27.0-33.0 [facility] ([place]) Comment on above: Order Comment: Routi ne for 0501 the morning of patient admission. Performed By: #### M ORPH, CBC, DIFF #### [address] [address] MCHC 32.9 G/dL Normal 32.0-36.0 [facility] ([place] Comment on above: Order Comment: Routi ne for 0501 the morning of patient admission. Performed By: #### M ORPH, CBC, DIFF #### [place] [address] MCV (RBC) [Entitic vol] 93.0 fL Normal 80.0-99.0 [facility] ([place] Comment on above: Order Comment: Routi ne for 0501 the morning of patient admission. Performed By: #### M ORPH, CBC, DIFF #### [place] [address] Platelet 208 10 3/mcL Normal 150-450 [facility] ([place]) Comment on above: Order Comment: Routi ne for 0501 the morning of patient admission. Performed By: #### M ORPH, CBC, DIFF #### [place] [address] Platelet mean volume (Bld) [Entitic vol] 7.7 fL Normal 6.6-10.5 [facility] ([place] Comment on above: Order Comment: Routi ne for 0501 the morning of patient admission. Performed By: #### M ORPH, CBC, DIFF #### [place] [address] RBC 3.26 10 6/mcL Low 4.10-5.30 [facility] ([place]) Comment on above: Order Comment: Routi ne for 0501 the morning of patient admission. Performed By: #### M ORPH, CBC, DIFF #### [place] [address] WBC 3.2 10 3/mcL Low 4.5-10.8 [facility] ([place]) Comment on above: Order Comment: Routi ne for 0501 the morning of patient admission. Performed By: #### M ORPH, CBC, DIFF #### [place] [address] .Auto Diffon 02-04-2024 Basophil, Absolute 0.1 10 3/mcL Normal 0.0-0.2 [facility] [place] ([place]) Comment on above: Performed By: #### M ORPH, CBC, DIFF #### [address] [address] Basophils/100 WBC (Bld) 1.4 % Normal 0.0-2.5 [facility] ([place]) Comment on above: Performed By: #### M ORPH, CBC, DIFF #### [address] [address] Eosinophil, Absolute 0.2 10 3/mcL Normal 0.0-0.4 [facility] ([place]) Comment on above: Performed By: #### M ORPH, CBC, DIFF #### [address] [address] Eosinophils/100 WBC (Bld) 3.5 % Normal 0.0-7.0 [facility] ([place]) Comment on above: Performed By: #### M ORPH, CBC, DIFF #### [address] [address] Lymphocyte, Absolute 0.8 10 3/mcL Normal 0.8-3.9 [facility] ([place]) Comment on above: Performed By: #### M ORPH, CBC, DIFF #### [address] [address] Lymphocytes/100 WBC (Bld) 16.1 % Normal 10.0-50.0 [facility] ([place]) Comment on above: Performed By: #### M ORPH, CBC, DIFF #### [address] [address] Monocyte, Absolute 0.5 10 3/mcL Normal 0.2-1.0 [facility] [place] ([place]) Comment on above: Performed By: #### M ORPH, CBC, DIFF #### [address] [address] Monocytes/100 WBC (Bld) 11.2 % Normal 1.7-13.0 [facility] ([place]) Comment on above: Performed By: #### M ORPH, CBC, DIFF #### [address] [address] Neutrophils/100 WBC (Bld) 67.8 % Normal 37.0-80.0 [facility] ([place]) Comment on above: Performed By: #### M ORPH, CBC, DIFF #### [address] [address] .GFRon 02-04-2024 GFR 100 ml/min/1.73sqm Normal [facility] ([place]) Comment on above: Result Comment: GFR Population [...] By: #### M ORPH, CBC, DIFF #### [address] [address] GFR Non- 82 ml/min/1.73sqm Normal [facility] ([place]) Comment on above: Result Comment: GFR Population [...] By: #### M ORPH, CBC, DIFF #### [address] [address] .NEUABSon 02-04-2024 Neutrophil, Absolute 3.2 10 3/mcL Normal 2.9-6.2 [facility] ([place]) Comment on above: Performed By: #### M ORPH, CBC, DIFF #### [address] [address] BMPon 02-04-2024 BUN/Creatinine Ratio 16 ratio Normal 7-27 [facility] [place] ([place]) Comment on above: Performed By: #### M ORPH, CBC, DIFF #### [address] [address] Calcium [Mass/Vol] 8.0 mg/dL Low 8.4-10.2 [facility] ([place]) Comment on above: Performed By: #### M ORPH, CBC, DIFF #### [address] [address] Chloride [Moles/Vol] 104 mmol/L Normal 98-107 [facility] [place] ([place]) Comment on above: Performed By: #### M ORPH, CBC, DIFF #### [address] [address] CO2 [Moles/Vol] 29 mmol/L Normal 23-31 [facility] ([place]) Comment on above: Performed By: #### M ORPH, CBC, DIFF #### [address] [address] Creatinine [Mass/Vol] 0.68 mg/dL Normal 0.55-1.02 [facility] ([place]) Comment on above: Performed By: #### M ORPH, CBC, DIFF #### [address] [address] Electrolyte Balance 8.0 mEq/L Normal 4.0-15.0 [facility] ([place]) Comment on above: Performed By: #### M ORPH, CBC, DIFF #### [address] [address] Glucose [Mass/Vol] 86 mg/dL Normal 83-110 [facility] ([place]) Comment on above: Performed By: #### M ORPH, CBC, DIFF #### [address] [address] Potassium [Moles/Vol] 3.9 mmol/L Normal 3.5-5.1 [facility] ([place]) Comment on above: Performed By: #### M ORPH, CBC, DIFF #### [address] [address] Sodium [Moles/Vol] 141 mmol/L Normal 136-145 [facility] ([place]) Comment on above: Performed By: #### M ORPH, CBC, DIFF #### [address] [address] Urea nitrogen [Mass/Vol] 11 mg/dL Normal 7-18 [facility] ([place]) Comment on above: Performed By: #### M ORADILENE, CBC, DIFF #### [address] [address] CBCon 02-04-2024 Erythrocyte distribution width (RBC) [Ratio] 15.9 % High 11.5-14.5 [facility] ([place]) Comment on above: Performed By: #### M ORPH, CBC, DIFF #### [address] [address] Hematocrit (Bld) [Volume fraction] 28.7 % Low 37.0-47.0 [facility] ([place]) Comment on above: Performed By: #### M ORADILENE, CBC, DIFF #### [address] [address] Hgb 9.5 G/dL Low 12.0-16.0 [facility] ([place]) Comment on above: Performed By: #### M ORPH, CBC, DIFF #### [address] [address] MCH (RBC) [Entitic mass] 31.1 pg Normal 27.0-31.2 [facility] ([place]) Comment on above: Performed By: #### M ORPH, CBC, DIFF #### [address] [address] MCHC 33.1 G/dL Normal 33.0-37.0 [facility] ([place]) Comment on above: Performed By: #### M ORPH, CBC, DIFF #### [address] [address] MCV (RBC) [Entitic vol] 93.9 fL Normal 80.0-94.0 [facility] ([place]) Comment on above: Performed By: #### M ORPH, CBC, DIFF #### [address] [address] Platelet 187 10 3/mcL Normal 130-400 [facility] ([place]) Comment on above: Performed By: #### M ORPH, CBC, DIFF #### [place] [address] [place] [address] Platelet mean volume (Bld) [Entitic vol] 7.4 fL Normal 7.4-10.4 [facility] ([place]) Comment on above: Performed By: #### M ORPH, CBC, DIFF #### [address] [address] RBC 3.05 10 6/mcL Low 4.20-5.40 [facility] ([place]) Comment on above: Performed By: #### M ORPH, CBC, DIFF #### [address] [address] WBC 4.8 10 3/mcL Normal 4.6-10.8 [facility] ([place]) Comment on above: Performed By: #### M ORPH, CBC, DIFF #### [address] [address] LABORATORYOrdered By: SYSTEM SYSTEM on 02-04-2024 Basophil, [...] [Mass/Vol] 2.0 mg/dL Normal 1.8-2.4 [facility] [place] ([place]) Comment on above: Performed By: #### M ORPH, CBC, DIFF #### [facility] [address] [place] [address] No Panel Informationon 02-03 Microscopic examination of blood, culture Culture has been received in lab and is no growth to date. Routine cultures are held for 5 days. [facility] .Auto Diffon 02-03-2024 Basophil, Absolute 0.0 10 3/mcL Normal 0.0-0.2 [facility] [place] ([place]) Comment on above: Performed By: #### A MANJULA, CBC, ADIFF, GFR, BMP #### [address] [address] Basophils/100 WBC (Bld) 0.7 % Normal 0.0-2.5 [facility] ([place]) Comment on above: Performed By: #### A MANJULA, CBC, ADIFF, GFR, BMP #### [address] [address] Eosinophil, Absolute 0.1 10 3/mcL Normal 0.0-0.4 [facility] ([place]) Comment on above: Performed By: #### A MANJULA, CBC, ADIFF, GFR, BMP #### [address] [address] Eosinophils/100 WBC (Bld) 2.4 % Normal 0.0-7.0 [facility] ([place]) Comment on above: Performed By: #### A MANJULA, CBC, ADIFF, GFR, BMP #### [address] [address] Lymphocyte, Absolute 0.5 10 3/mcL Low 0.8-3.9 [facility] ([place]) Comment on above: Performed By: #### A MANJULA, CBC, ADIFF, GFR, BMP #### [address] [address] Lymphocytes/100 WBC (Bld) 10.0 % Normal 10.0-50.0 [facility] ([place]) Comment on above: Performed By: #### A MANJULA, CBC, ADIFF, GFR, BMP #### [address] [address] Monocyte, Absolute 0.5 10 3/mcL Normal 0.2-1.0 [facility] [place] ([place]) Comment on above: Performed By: #### A MANJULA, CBC, ADIFF, GFR, BMP #### [address] [address] Monocytes/100 WBC (Bld) 10.2 % Normal 1.7-13.0 [facility] ([place]) Comment on above: Performed By: #### A MANJULA, CBC, ADIFF, GFR, BMP #### [address] [address] Neutrophils/100 WBC (Bld) 76.7 % Normal 37.0-80.0 [facility] ([place]) Comment on above: Performed By: #### A MANJULA, CBC, ADIFF, GFR, BMP #### [address] [address] .GFRon 02-03-2024 GFR 103 ml/min/1.73sqm Normal [facility] ([place]) Comment on above: Result Comment: GFR Population [...] MANJULA, CBC, ADIFF, GFR, BMP #### [address] [address] GFR Non- 85 ml/min/1.73sqm Normal [facility] ([place]) Comment on above: Result Comment: GFR Population [...] MANJULA, CBC, ADIFF, GFR, BMP #### [address] [address] .NEUABSon 02-03-2024 Neutrophil, Absolute 3.6 10 3/mcL Normal 2.9-6.2 [facility] ([place]) Comment on above: Performed By: #### A MANJULA, CBC, ADIFF, GFR, BMP #### [address] [address] BMPon 02-03-2024 BUN/Creatinine Ratio 17 ratio Normal 7-27 [facility] [place] ([place]) Comment on above: Performed By: #### A MANJULA, CBC, ADIFF, GFR, BMP #### [address] [address] Calcium [Mass/Vol] 8.1 mg/dL Low 8.4-10.2 [facility] ([place]) Comment on above: Performed By: #### A MANJULA, CBC, ADIFF, GFR, BMP #### [address] [address] Chloride [Moles/Vol] 104 mmol/L Normal 98-107 [facility] [place] ([place]) Comment on above: Performed By: #### A MANJULA, CBC, ADIFF, GFR, BMP #### [address] [address] CO2 [Moles/Vol] 29 mmol/L Normal 23-31 [facility] ([place]) Comment on above: Performed By: #### A MANJULA, CBC, ADIFF, GFR, BMP #### [address] [address] Creatinine [Mass/Vol] 0.66 mg/dL Normal 0.55-1.02 [facility] ([place]) Comment on above: Performed By: #### A MANJULA, CBC, ADIFF, GFR, BMP #### [address] [address] Electrolyte Balance 8.0 mEq/L Normal 4.0-15.0 [facility] ([place]) Comment on above: Performed By: #### A MANJULA, CBC, ADIFF, GFR, BMP #### [address] [address] Glucose [Mass/Vol] 89 mg/dL Normal 83-110 [facility] ([place]) Comment on above: Performed By: #### A MANJULA, CBC, ADIFF, GFR, BMP #### [address] [address] Potassium [Moles/Vol] 3.9 mmol/L Normal 3.5-5.1 [facility] ([place]) Comment on above: Performed By: #### A MANJULA, CBC, ADIFF, GFR, BMP #### [address] [address] Sodium [Moles/Vol] 141 mmol/L Normal 136-145 [facility] ([place]) Comment on above: Performed By: #### A MANJULA, CBC, ADIFF, GFR, BMP #### [address] [address] Urea nitrogen [Mass/Vol] 11 mg/dL Normal 7-18 [facility] ([place]) Comment on above: Performed By: #### A MANJULA, CBC, ADIFF, GFR, BMP #### [address] [address] CBCon 02-03-2024 Erythrocyte distribution width (RBC) [Ratio] 15.9 % High 11.5-14.5 [facility] ([place]) Comment on above: Performed By: #### M G, CBC, BMP, ADIFF, ANEU, GFR #### [address] [address] Hematocrit (Bld) [Volume fraction] 28.1 % Low 37.0-47.0 [facility] ([place]) Comment on above: Performed By: #### M G, CBC, BMP, ADIFF, ANEU, GFR #### [address] [address] Hgb 9.4 G/dL Low 12.0-16.0 [facility] ([place]) Comment on above: Performed By: #### M G, CBC, BMP, ADIFF, ANEU, GFR #### [address] [address] MCH (RBC) [Entitic mass] 31.1 pg Normal 27.0-31.2 [facility] ([place]) Comment on above: Performed By: #### M G, CBC, BMP, ADIFF, ANEU, GFR #### [address] [address] MCHC 33.3 G/dL Normal 33.0-37.0 [facility] ([place]) Comment on above: Performed By: #### M G, CBC, BMP, ADIFF, ANEU, GFR #### [address] [address] MCV (RBC) [Entitic vol] 93.4 fL Normal 80.0-94.0 [facility] ([place]) Comment on above: Performed By: #### M G, CBC, BMP, ADIFF, ANEU, GFR #### [address] [address] Platelet 187 10 3/mcL Normal 130-400 [facility] ([place]) Comment on above: Performed By: #### M G, CBC, BMP, ADIFF, ANEU, GFR #### [address] [address] Platelet mean volume (Bld) [Entitic vol] 7.7 fL Normal 7.4-10.4 [facility] ([place]) Comment on above: Performed By: #### M G, CBC, BMP, ADIFF, ANEU, GFR #### [place] [address] [address] RBC 3.01 10 6/mcL Low 4.20-5.40 [facility] ([place]) Comment on above: Performed By: #### M G, CBC, BMP, ADIFF, ANEU, GFR #### [place] [address] [address] WBC 4.7 10 3/mcL Normal 4.6-10.8 [facility] ([place]) Comment on above: Performed By: #### M G, CBC, BMP, ADIFF, ANEU, GFR #### [place] [address] [address] LABORATORYOrdered By: SYSTEM SYSTEM on 02-03-2024 Basophil, [...] [Mass/Vol] 2.0 mg/dL Normal 1.8-2.4 [facility] [place] ([place]) Comment on above: Performed By: #### A MANJULA, CBC, ADIFF, GFR, BMP #### [place] [address] [place], [place] [address] No Panel Informationon 02-02 GSANA Gram Positive Cocci in [facility] Microscopic examination of blood, culture Culture has been received in lab and is no growth to date. Routine cultures are held for 5 days. [facility] .GFRon 02-02-2024 GFR 105 ml/min/1.73sqm Normal [facility] ([place]) Comment on above: Result [...] mL/min/1.73 square meters Performed By: #### M ORADILENE, CBC, DIFF #### [address] [address] GFR Non- 87 ml/min/1.73sqm Normal [facility] ([place]) Comment on above: Result Comment: GFR Population [...] mL/min/1.73 square meters Performed By: #### M ORADILENE, CBC, DIFF #### [address] [address] .Manual Diffon 02-02-2024 Basophil %, Manual 0.0 % Normal 0.0-2.5 [facility] ([place]) Comment on above: Performed By: #### M ORPH, CBC, DIFF #### [address] [address] Basophil, Abs Manual 0.0 10 3/mcL Normal 0.0-0.2 [facility] ([place]) Comment on above: Performed By: #### M ORPH, CBC, DIFF #### [address] [address] Eosinophil %, Manual 0.0 % Normal 0.0-7.0 [facility] [place] ([place]) Comment on above: Performed By: #### M ORPH, CBC, DIFF #### [address] [address] Eosinophil, Abs Manual 0.0 10 3/mcL Normal 0.0-0.4 [facility] ([place]) Comment on above: Performed By: #### M ORPH, CBC, DIFF #### [address] [address] Lymphocyte %, Manual 13.0 % Normal 10.0-50.0 [facility] [place] ([place]) Comment on above: Performed By: #### M ORPH, CBC, DIFF #### [address] [address] Lymphocyte, Abs Manual 1.1 10 3/mcL Normal 0.8-3.9 [facility] ([place]) Comment on above: Performed By: #### M ORPH, CBC, DIFF #### [address] [address] Monocyte %, Manual 5.0 % Normal 1.7-13.0 [facility] ([place]) Comment on above: Performed By: #### M ORPH, CBC, DIFF #### [address] [address] Monocyte, Abs Manual 0.4 10 3/mcL Normal 0.2-1.0 [facility] ([place]) Comment on above: Performed By: #### M ORPH, CBC, DIFF #### [address] [address] Neutrophil %, Manual 82.0 % High 37.0-80.0 [facility] [place] ([place]) Comment on above: Performed By: #### M ORPH, CBC, DIFF #### [address] [address] Neutrophil, Abs Manual 6.8 10 3/mcL High 2.9-6.2 [facility] ([place]) Comment on above: Performed By: #### M ORPH, CBC, DIFF #### [address] [address] Nucleated RBC 0.0 /100 WBC Normal [facility] ([place]) Comment on above: Performed By: #### M ORPH, CBC, DIFF #### [address] [address] .Morphon 02-02-2024 Anisocytosis Ql (Bld) 1+ Normal [facility] ([place]) Comment on above: Performed By: #### M ORPH, CBC, DIFF #### [address] [address] Microcytosis 1+ Normal [facility] ([place]) Comment on above: Performed By: #### M ORPH, CBC, DIFF #### [address] [address] Platelet Estimate Normal Normal [facility] ([place]) Comment on above: Performed By: #### M ORPH, CBC, DIFF #### [address] [address] BMPon 02-02-2024 BUN/Creatinine Ratio 23 ratio Normal 7-27 [facility] [place] ([place]) Comment on above: Performed By: #### U A #### [address] [address] Calcium [Mass/Vol] 8.1 mg/dL Low 8.4-10.2 [facility] ([place]) Comment on above: Performed By: #### U A #### [address] [address] Chloride [Moles/Vol] 103 mmol/L Normal 98-107 [facility] [place] ([place]) Comment on above: Performed By: #### U A #### [address] [address] CO2 [Moles/Vol] 28 mmol/L Normal 23-31 [facility] ([place]) Comment on above: Performed By: #### U A #### [address] [address] Creatinine [Mass/Vol] 0.65 mg/dL Normal 0.55-1.02 [facility] ([place]) Comment on above: Performed By: #### U A #### [address] [address] Electrolyte Balance 8.0 mEq/L Normal 4.0-15.0 [facility] ([place]) Comment on above: Performed By: #### U A #### [address] [address] Glucose [Mass/Vol] 98 mg/dL Normal 83-110 [facility] ([place]) Comment on above: Performed By: #### U A #### [address] [address] Potassium [Moles/Vol] 3.7 mmol/L Normal 3.5-5.1 [facility] ([place]) Comment on above: Performed By: #### U A #### [address] [address] Sodium [Moles/Vol] 139 mmol/L Normal 136-145 [facility] ([place]) Comment on above: Performed By: #### U A #### [address] [address] Urea nitrogen [Mass/Vol] 15 mg/dL Normal 7-18 [facility] ([place]) Comment on above: Performed By: #### U A #### [address] [address] CBCon 02-02-2024 Erythrocyte distribution width (RBC) [Ratio] 16.1 % High 11.5-14.5 [facility] ([place]) Comment on above: Order Comment: QNSQu estionable results Performed By: #### M ORPH, CBC, DIFF #### [address] [address] Platelet 187 10 3/mcL Normal 130-400 [facility] ([place]) Comment on above: Order Comment: QNSQu estionable results Performed By: #### M ORPH, CBC, DIFF #### [address] [address] Platelet mean volume (Bld) [Entitic vol] 7.7 fL Normal 7.4-10.4 [facility] ([place]) Comment on above: Order Comment: QNSQu estionable results Performed By: #### M ORPH, CBC, DIFF #### [address] [address] Hematocrit (Bld) [Volume fraction] 31.1 % Low 37.0-47.0 [facility] ([place]) Comment on above: Order Comment: QNSQu estionable results Performed By: #### M ORPH, CBC, DIFF #### [address] [address] Hgb 10.3 G/dL Low 12.0-16.0 [facility] ([place]) Comment on above: Order Comment: QNSQu estionable results Performed By: #### M ORPH, CBC, DIFF #### [address] [address] MCH (RBC) [Entitic mass] 31.1 pg Normal 27.0-31.2 [facility] ([place]) Comment on above: Order Comment: QNSQu estionable results Performed By: #### M ORPH, CBC, DIFF #### [address] [address] MCHC 33.1 G/dL Normal 33.0-37.0 [facility] ([place]) Comment on above: Order Comment: QNSQu estionable results Performed By: #### M ORPH, CBC, DIFF #### [address] [address] MCV (RBC) [Entitic vol] 94.0 fL Normal 80.0-94.0 [facility] ([place]) Comment on above: Order Comment: QNSQu estionable results Performed By: #### M ORPH, CBC, DIFF #### [address] [place], [place] [address] RBC 3.30 10 6/mcL Low 4.20-5.40 [facility] ([place]) Comment on above: Order Comment: QNSQu estionable results Performed By: #### M ORPH, CBC, DIFF #### [facility] [address] [place] [address] WBC 8.4 10 3/mcL Normal 4.6-10.8 [facility] ([place]) Comment on above: Order Comment: QNSQu estionable results Performed By: #### M ORPH, CBC, DIFF #### [address] [address] [address] ABDOMEN/PELVIS W/CONTRAST on 02-02-2024 CT ABDOMEN/PELVIS [...] 02/02/2024 5:34:24 PM Ordering Provider: KUMAR Woody [facility] ([place]) LABORATORYOrdered By: SYSTEM SYSTEM on 02-02-2024 Anisocytosis [...] [Mass/Vol] 2.0 mg/dL Normal 1.8-2.4 [facility] [place] ([place]) Comment on above: Performed By: #### U A #### [address] [address] No Panel Informationon 02-01 Enterococcus faecalis Enterococcus faecalis [facility] GSAER Gram Positive Cocci in pairs [facility] Microscopic examination of blood, culture Enterococcus faecalis Isolated from aerobe bottle only. Refer to previous culture for susceptibility. [id number] collected 01-31-24 [facility] .GFRon 02-01-2024 GFR Non- 67 ml/min/1.73sqm Normal [facility] ([place]) Comment on above: Result Comment: GFR Population [...] meters Performed By: #### U A #### [address] [address] GFR 82 ml/min/1.73sqm Normal [facility] ([place]) Comment on above: Result Comment: GFR Population [...] meters Performed By: #### U A #### [address] [address] .Manual Diffon 02-01-2024 Neutrophil, Abs Manual 7.1 10 3/mcL High 2.9-6.2 [facility] ([place]) Comment on above: Performed By: #### U A #### [address] [address] Bands 5.0 % Normal 0.0-5.0 [facility] ([place]) Comment on above: Performed By: #### U A #### [address] [address] Basophil %, Manual 1.0 % Normal 0.0-2.5 [facility] ([place]) Comment on above: Performed By: #### U A #### [address] [address] Basophil, Abs Manual 0.1 10 3/mcL Normal 0.0-0.2 [facility] ([place]) Comment on above: Performed By: #### U A #### [address] [address] Eosinophil %, Manual 1.0 % Normal 0.0-7.0 [facility] [place] ([place]) Comment on above: Performed By: #### U A #### [address] [address] Eosinophil, Abs Manual 0.1 10 3/mcL Normal 0.0-0.4 [facility] ([place]) Comment on above: Performed By: #### U A #### [address] [address] Lymphocyte %, Manual 9.0 % Low 10.0-50.0 [facility] [place] ([place]) Comment on above: Performed By: #### U A #### [address] [address] Lymphocyte, Abs Manual 0.8 10 3/mcL Normal 0.8-3.9 [facility] ([place]) Comment on above: Performed By: #### U A #### [address] [address] Monocyte %, Manual 5.0 % Normal 1.7-13.0 [facility] ([place]) Comment on above: Performed By: #### U A #### [address] [address] Monocyte, Abs Manual 0.4 10 3/mcL Normal 0.2-1.0 [facility] ([place]) Comment on above: Performed By: #### U A #### [address] [address] Neutrophil %, Manual 79.0 % Normal 37.0-80.0 [facility] [place] ([place]) Comment on above: Performed By: #### U A #### [address] [address] Nucleated RBC 0.0 /100 WBC Normal [facility] ([place]) Comment on above: Performed By: #### U A #### [address] [address] .Morphon 02-01-2024 Ovalocytes 1+ Normal [facility] ([place]) Comment on above: Performed By: #### U A #### [address] [address] Platelet Estimate Normal Normal [facility] ([place]) Comment on above: Performed By: #### U A #### [address] [address] Toxic Gran 1+ Normal [facility] ([place]) Comment on above: Performed By: #### U A #### [address] [address] Vacuolated Neutrophils 1+ Normal [facility] ([place]) Comment on above: Performed By: #### U A #### [address] [address] CBCon 02-01-2024 Erythrocyte distribution width (RBC) [Ratio] 16.1 % High 11.5-14.5 [facility] ([place]) Comment on above: Performed By: #### U A #### [address] [address] Hematocrit (Bld) [Volume fraction] 31.1 % Low 37.0-47.0 [facility] ([place]) Comment on above: Performed By: #### U A #### [address] [address] Hgb 10.2 G/dL Low 12.0-16.0 [facility] ([place]) Comment on above: Performed By: #### U A #### [address] [address] MCH (RBC) [Entitic mass] 30.9 pg Normal 27.0-31.2 [facility] ([place]) Comment on above: Performed By: #### U A #### [address] [address] MCHC 32.9 G/dL Low 33.0-37.0 [facility] ([place]) Comment on above: Performed By: #### U A #### [address] [address] MCV (RBC) [Entitic vol] 93.9 fL Normal 80.0-94.0 [facility] ([place]) Comment on above: Performed By: #### U A #### [address] [address] Platelet 177 10 3/mcL Normal 130-400 [facility] ([place]) Comment on above: Performed By: #### U A #### [address] [address] Platelet mean volume (Bld) [Entitic vol] 7.9 fL Normal 7.4-10.4 [facility] ([place]) Comment on above: Performed By: #### U A #### [address] [address] RBC 3.31 10 6/mcL Low 4.20-5.40 [facility] ([place]) Comment on above: Performed By: #### U A #### [address] [address] WBC 8.5 10 3/mcL Normal 4.6-10.8 [facility] ([place]) Comment on above: Performed By: #### U A #### [address] [address] CMPon 02-01-2024 Albumin Level 2.5 G/dL Low 3.4-4.8 [facility] ([place] Comment on above: Performed By: #### U A #### [address] [address] Albumin/Globulin [Mass ratio] 0.6 {ratio} Low 1.1-2.5 [facility] ([place] Comment on above: Performed By: #### U A #### [address] [address] ALP [Catalytic activity/Vol] 90 U/L Normal 40-135 [facility] ([place]) Comment on above: Performed By: #### U A #### [address] [address] ALT [Catalytic activity/Vol] 41 U/L Normal 14-59 [facility] ([place]) Comment on above: Performed By: #### U A #### [address] [address] AST [Catalytic activity/Vol] 39 U/L Normal 10-40 [facility] ([place]) Comment on above: Performed By: #### U A #### [address] [address] Bili Total 0.6 mg/dL Normal 0.2-1.0 [facility] ([place]) Comment on above: Result Comment: Use of this assay is not recommended for patients undergoing treatment with eltrombopag due to the potential for falsely elevated results. Performed By: #### U A #### [address] [address] BUN/Creatinine Ratio 21 ratio Normal 7-27 [facility] ([place]) Comment on above: Performed By: #### U A #### [address] [address] Calcium [Mass/Vol] 8.2 mg/dL Low 8.4-10.2 [facility] ([place]) Comment on above: Performed By: #### U A #### [address] [address] Chloride [Moles/Vol] 99 mmol/L Normal 98-107 [facility] ([place]) Comment on above: Performed By: #### U A #### [address] [address] CO2 [Moles/Vol] 26 mmol/L Normal 23-31 [facility] ([place]) Comment on above: Performed By: #### U A #### [address] [address] Creatinine [Mass/Vol] 0.81 mg/dL Normal 0.55-1.02 [facility] ([place]) Comment on above: Performed By: #### U A #### [address] [address] Electrolyte Balance 12.0 mEq/L Normal 4.0-15.0 [facility] ([place]) Comment on above: Performed By: #### U A #### [address] [address] Globulin 4.1 G/dL Normal [facility] ([place]) Comment on above: Performed By: #### U A #### [address] [address] Glucose [Mass/Vol] 121 mg/dL High 83-110 [facility] ([place]) Comment on above: Performed By: #### U A #### [address] [address] Potassium [Moles/Vol] 4.3 mmol/L Normal 3.5-5.1 [facility] ([place]) Comment on above: Performed By: #### U A #### [address] [address] Sodium [Moles/Vol] 137 mmol/L Normal 136-145 [facility] ([place]) Comment on above: Performed By: #### U A #### [address] [address] Total Protein 6.6 G/dL Normal 6.4-8.2 [facility] ([place]) Comment on above: Performed By: #### U A #### [address] [address] Urea nitrogen [Mass/Vol] 17 mg/dL Normal 7-18 [facility] ([place]) Comment on above: Performed By: #### U A #### [address] [address] LABORATORYOrdered By: SYSTEM SYSTEM on 02-01-2024 Albumin [...] [Mass/Vol] 2.0 mg/dL Normal 1.8-2.4 [facility] ([place]) Comment on above: Performed By: #### U A #### [address] [address] No Panel Informationon 01-31 GSAER Gram Positive Cocci in pairs [facility] GSANA Gram Positive Cocci in pairs [facility] Microscopic examination of blood, culture Culture has been received in lab and is no growth to date. Routine cultures are held for 5 days. [facility] .Auto Diffon 01-31-2024 Basophil, Absolute 0.0 10 3/mcL Normal 0.0-0.2 [facility] ([place]) Comment on above: Performed By: #### A MANJULA, CBC, ADIFF, GFR, BMP #### [address] [address] Basophils/100 WBC (Bld) 0.3 % Normal 0.0-2.5 [facility] ([place]) Comment on above: Performed By: #### A MANJULA, CBC, ADIFF, GFR, BMP #### [address] [address] Eosinophil, Absolute 0.0 10 3/mcL Normal 0.0-0.4 [facility] ([place]) Comment on above: Performed By: #### A MANJULA, CBC, ADIFF, GFR, BMP #### [address] [address] Eosinophils/100 WBC (Bld) 1.0 % Normal 0.0-7.0 [facility] ([place]) Comment on above: Performed By: #### A MANJULA, CBC, ADIFF, GFR, BMP #### [address] [address] Lymphocyte, Absolute 1.0 10 3/mcL Normal 0.8-3.9 [facility] ([place]) Comment on above: Performed By: #### A MANJULA, CBC, ADIFF, GFR, BMP #### [address] [address] Lymphocytes/100 WBC (Bld) 13.1 % Normal 10.0-50.0 [facility] ([place]) Comment on above: Performed By: #### A MANJULA, CBC, ADIFF, GFR, BMP #### [address] [address] Monocyte, Absolute 0.6 10 3/mcL Normal 0.2-1.0 [facility] ([place]) Comment on above: Performed By: #### A MANJULA, CBC, ADIFF, GFR, BMP #### [address] [address] Monocytes/100 WBC (Bld) 8.7 % Normal 1.7-13.0 [facility] ([place]) Comment on above: Performed By: #### A MANJULA, CBC, ADIFF, GFR, BMP #### [address] [address] Neutrophils/100 WBC (Bld) 76.7 % Normal 37.0-80.0 [facility] ([place]) Comment on above: Performed By: #### A MANJULA, CBC, ADIFF, GFR, BMP #### [address] [address] .GFRon 01-31-2024 GFR 98 ml/min/1.73sqm Normal [facility] ([place]) Comment on above: Result Comment: GFR Population [...] MANJULA, CBC, ADIFF, GFR, BMP #### [address] [address] GFR Non- 81 ml/min/1.73sqm Normal [facility] ([place]) Comment on above: Result Comment: GFR Population [...] MANJULA, CBC, ADIFF, GFR, BMP #### [address] [address] .NEUABSon 01-31-2024 Neutrophil, Absolute 5.9 10 3/mcL Normal 2.9-6.2 [facility] ([place]) Comment on above: Performed By: #### A MANJULA, CBC, ADIFF, GFR, BMP #### [address] [address] BCIDon 01-31-2024 Acinetobacter camryn-baumanii complex Not detected Normal Not Detected [facility] ([place]) Comment on above: Performed By: #### M ORPH, CBC, DIFF #### [address] [address] Bacteroides fragilis Not detected Normal Not Detected [facility] ([place]) Comment on above: Performed By: #### M ORPH, CBC, DIFF #### [facility] [address] [place] [address] BCID Comment See Comment Normal [facility] ([place]) Comment on above: Result Comment: Anti microbial [...] By: #### M ORPH, CBC, DIFF #### [facility] [address] [place] [address] Kasandra albicans Not detected Normal Not Detected [facility] ([place]) Comment on above: Performed By: #### M ORPH, CBC, DIFF #### [facility] [address] [place] [address] Kasandra auris Not detected Normal Not Detected [facility] ([place]) Comment on above: Performed By: #### M ORPH, CBC, DIFF #### [facility] [address] [place] [address] Kasandra glabrata Not detected Normal Not Detected [facility] ([place]) Comment on above: Performed By: #### M ORPH, CBC, DIFF #### [facility] [address] [place] [address] Kasandra krusei Not detected Normal Not Detected [facility] ([place]) Comment on above: Performed By: #### M ORPH, CBC, DIFF #### [facility] [address] [place] [address] Kasandra parapsilosis Not detected Normal Not Detected [facility] ([place]) Comment on above: Performed By: #### M ORPH, CBC, DIFF #### [facility] [address] [place] [address] Kasandra tropicalis Not detected Normal Not Detected [facility] ([place]) Comment on above: Performed By: #### M ORPH, CBC, DIFF #### [facility] [address] [place] [address] Cryptococcus neoformans-gattii Not detected Normal Not Detected [facility] ([place]) Comment on above: Performed By: #### M ORPH, CBC, DIFF #### [facility] [address] [place] [address] CTX-M (ESBL) Not Applicable Normal Not Detected [facility] ([place]) Comment on above: Performed By: #### M ORPH, CBC, DIFF #### [facility] [address] [place] [address] E. Coli Not detected Normal Not Detected [facility] ([place]) Comment on above: Performed By: #### M ORPH, CBC, DIFF #### [facility] [address] [place] [address] Enterobacter cloacae Complex Not detected Normal Not Detected [facility] ([place]) Comment on above: Performed By: #### M ORPH, CBC, DIFF #### [facility] [address] [place] [address] Enterobacterales Not detected Normal Not Detected [facility] ([place]) Comment on above: Performed By: #### M ORPH, CBC, DIFF #### [place] [address] Enterococcus faecalis Detected Abnormal Not Detected [facility] ([place]) Comment on above: Performed By: #### M ORPH, CBC, DIFF #### [place] [address] Enterococcus faecium Not detected Normal Not Detected [facility] ([place]) Comment on above: Performed By: #### M ORPH, CBC, DIFF #### [place] [address] Haemophilus influenzae Not detected Normal Not Detected [facility] ([place]) Comment on above: Performed By: #### M ORPH, CBC, DIFF #### [facility] [address] [place], [place] [id number] IMP (Carbapenemase) Not Applicable Normal Not Detected [facility] ([place]) Comment on above: Performed By: #### M ORPH, CBC, DIFF #### [facility] [address] [place] [address] Klebsiella aerogenes Not detected Normal Not Detected [facility] ([place]) Comment on above: Performed By: #### M ORPH, CBC, DIFF #### [facility] [address] [place] [address] Klebsiella oxytoca Not detected Normal Not Detected [facility] ([place]) Comment on above: Performed By: #### M ORPH, CBC, DIFF #### [facility] [address] [place] [address] Klebsiella pneumoniae group Not detected Normal Not Detected [facility] ([place] Comment on above: Performed By: #### M ORPH, CBC, DIFF #### [facility] [address] [place] [address] KPC (Carbapenemase) Not Applicable Normal Not Detected [facility] ([place]) Comment on above: Performed By: #### M ORPH, CBC, DIFF #### [facility] [address] [place] [address] Listeria monocytogenes Not detected Normal Not Detected [facility] ([place]) Comment on above: Performed By: #### M ORPH, CBC, DIFF #### [facility] [address] [place] [address] MCR-1 (Colistin Resistance) Not Applicable Normal Not Detected [facility] ([place]) Comment on above: Performed By: #### M ORPH, CBC, DIFF #### [facility] [address] [place] [address] Mec A/C Not Applicable Normal Not Detected [facility] ([place]) Comment on above: Performed By: #### M ORPH, CBC, DIFF #### [place] [id number] Mec A/C-MREJ (MRSA) Not Applicable Normal Not Detected [facility] ([place]) Comment on above: Performed By: #### M ORPH, CBC, DIFF #### [facility] [address] [place] [address] NDM (Carbapenemase) Not Applicable Normal Not Detected [facility] ([place] Comment on above: Performed By: #### M ORPH, CBC, DIFF #### [facility] [address] [place] [address] Neisseria meningitidis (Encapsalated) Not detected Normal Not Detected [facility] ([place]) Comment on above: Performed By: #### M ORPH, CBC, DIFF #### [facility] [address] [place] [address] OXA-48 like (Carbapenemase) Not Applicable Normal Not Detected [facility] ([place] Comment on above: Performed By: #### M ORPH, CBC, DIFF #### [facility] [address] [place] [address] Proteus Not detected Normal Not Detected [facility] ([place]) Comment on above: Performed By: #### M ORPH, CBC, DIFF #### [facility] [address] [place] [address] Pseudomonas aeruginosa Not detected Normal Not Detected [facility] ([place]) Comment on above: Performed By: #### M ORPH, CBC, DIFF #### [address] [address] S. agalactiae Org specific cx Ql (Vag fld) Not detected Normal Not Detected [facility] ([place]) Comment on above: Performed By: #### M ORPH, CBC, DIFF #### [place] [address] Salmonella species Not detected Normal Not Detected [facility] ([place]) Comment on above: Performed By: #### M ORPH, CBC, DIFF #### [address] [address] Serratia marcescens Not detected Normal Not Detected [facility] ([place]) Comment on above: Performed By: #### M ORPH, CBC, DIFF #### [address] [address] Staphylococcus Not detected Normal Not Detected [facility] ([place]) Comment on above: Performed By: #### M ORPH, CBC, DIFF #### [address] [address] Staphylococcus aureus Not detected Normal Not Detected [facility] ([place]) Comment on above: Result Comment: If S taphylococcus aureus is "Detected", an Infectious Disease physician consult is required on identification. Performed By: #### M ORPH, CBC, DIFF #### [address] [address] Staphylococcus epidermidis Not detected Normal Not Detected [facility] ([place]) Comment on above: Performed By: #### M ORPH, CBC, DIFF #### [address] [address] Staphylococcus lugdunensis Not detected Normal Not Detected [facility] ([place]) Comment on above: Performed By: #### M ORPH, CBC, DIFF #### [place] [address] Stenotrophomonas maltophilia Not detected Normal Not Detected [facility] ([place]) Comment on above: Performed By: #### M ORPH, CBC, DIFF #### [place] [address] Streptococcus Not detected Normal Not Detected [facility] ([place]) Comment on above: Performed By: #### M ORPH, CBC, DIFF #### [place] [address] Streptococcus pneumoniae Not detected Normal Not Detected [facility] ([place]) Comment on above: Performed By: #### M ORPH, CBC, DIFF #### [place] [address] Streptococcus pyogenes Not detected Normal Not Detected [facility] ([place]) Comment on above: Performed By: #### M ORPH, CBC, DIFF #### [place] [address] Van A/B Not detected Normal Not Detected [facility] ([place]) Comment on above: Performed By: #### M ORPH, CBC, DIFF #### [place] [address] VIM (Carbapenemase) Not Applicable Normal Not Detected [facility] ([place]) Comment on above: Performed By: #### M ORPH, CBC, DIFF #### [address] [address] CBCon 01-31-2024 Erythrocyte distribution width (RBC) [Ratio] 14.5 % Normal 11.5-14.5 [facility] ([place]) Comment on above: Performed By: #### A MANJULA, CBC, ADIFF, GFR, BMP #### [facility] [address] [place], [place] [address] Hematocrit (Bld) [Volume fraction] 30.6 % Low 37.0-47.0 [facility] ([place]) Comment on above: Performed By: #### A MANJULA, CBC, ADIFF, GFR, BMP #### [address] [address] Hgb 9.9 G/dL Low 12.0-16.0 [facility] ([place]) Comment on above: Performed By: #### A MANJULA, CBC, ADIFF, GFR, BMP #### [address] [address] MCH (RBC) [Entitic mass] 30.6 pg Normal 27.0-31.2 [facility] ([place]) Comment on above: Performed By: #### A MANJULA, CBC, ADIFF, GFR, BMP #### [address] [address] MCHC 32.6 G/dL Low 33.0-37.0 [facility] ([place]) Comment on above: Performed By: #### A MANJULA, CBC, ADIFF, GFR, BMP #### [address] [address] MCV (RBC) [Entitic vol] 93.6 fL Normal 80.0-94.0 [facility] ([place]) Comment on above: Performed By: #### A MANJULA, CBC, ADIFF, GFR, BMP #### [address] [address] Platelet 229 10 3/mcL Normal 130-400 [facility] ([place]) Comment on above: Performed By: #### A MANJULA, CBC, ADIFF, GFR, BMP #### [address] [address] Platelet mean volume (Bld) [Entitic vol] 7.6 fL Normal 7.4-10.4 [facility] ([place]) Comment on above: Performed By: #### A MANJULA, CBC, ADIFF, GFR, BMP #### [address] [address] RBC 3.27 10 6/mcL Low 4.20-5.40 [facility] ([place]) Comment on above: Performed By: #### A MANJULA, CBC, ADIFF, GFR, BMP #### [address] [address] WBC 7.6 10 3/mcL Normal 4.6-10.8 [facility] ([place]) Comment on above: Performed By: #### A MANJULA, CBC, ADIFF, GFR, BMP #### [address] [address] CMPon 01-31-2024 Albumin Level 2.4 G/dL Low 3.4-4.8 [facility] ([place]) Comment on above: Performed By: #### A MANJULA, CBC, ADIFF, GFR, BMP #### [address] [address] Albumin/Globulin [Mass ratio] 0.6 {ratio} Low 1.1-2.5 [facility] ([place]) Comment on above: Performed By: #### A MANJULA, CBC, ADIFF, GFR, BMP #### [address] [address] ALP [Catalytic activity/Vol] 88 U/L Normal 40-135 [facility] ([place]) Comment on above: Performed By: #### A MANJULA, CBC, ADIFF, GFR, BMP #### [address] [address] ALT [Catalytic activity/Vol] 36 U/L Normal 14-59 [facility] ([place]) Comment on above: Performed By: #### A MANJULA, CBC, ADIFF, GFR, BMP #### [address] [address] AST [Catalytic activity/Vol] 24 U/L Normal 10-40 [facility] ([place]) Comment on above: Performed By: #### A MANJULA, CBC, ADIFF, GFR, BMP #### [address] [address] Bili Total 0.6 mg/dL Normal 0.2-1.0 [facility] ([place]) Comment on above: Result Comment: Use of this assay is not recommended for patients undergoing treatment with eltrombopag due to the potential for falsely elevated results. Performed By: #### A MANJULA, CBC, ADIFF, GFR, BMP #### [address] [address] BUN/Creatinine Ratio 17 ratio Normal 7-27 [facility] ([place]) Comment on above: Performed By: #### A MANJULA, CBC, ADIFF, GFR, BMP #### [address] [address] Calcium [Mass/Vol] 8.2 mg/dL Low 8.4-10.2 [facility] ([place]) Comment on above: Performed By: #### A MANJULA, CBC, ADIFF, GFR, BMP #### [address] [address] Chloride [Moles/Vol] 103 mmol/L Normal 98-107 [facility] ([place]) Comment on above: Performed By: #### A MANJULA, CBC, ADIFF, GFR, BMP #### [address] [address] CO2 [Moles/Vol] 31 mmol/L Normal 23-31 [facility] ([place]) Comment on above: Performed By: #### A MANJULA, CBC, ADIFF, GFR, BMP #### [address] [address] Creatinine [Mass/Vol] 0.69 mg/dL Normal 0.55-1.02 [facility] ([place]) Comment on above: Performed By: #### A MANJULA, CBC, ADIFF, GFR, BMP #### [address] [address] Electrolyte Balance 6.0 mEq/L Normal 4.0-15.0 [facility] ([place]) Comment on above: Performed By: #### A MANJULA, CBC, ADIFF, GFR, BMP #### [address] [address] Globulin 4.1 G/dL Normal [facility] ([place]) Comment on above: Performed By: #### A MANJULA, CBC, ADIFF, GFR, BMP #### [address] [address] Glucose [Mass/Vol] 112 mg/dL High 83-110 [facility] ([place]) Comment on above: Performed By: #### A MANJULA, CBC, ADIFF, GFR, BMP #### [address] [address] Potassium [Moles/Vol] 4.3 mmol/L Normal 3.5-5.1 [facility] ([place]) Comment on above: Performed By: #### A MANJULA, CBC, ADIFF, GFR, BMP #### [address] [address] Sodium [Moles/Vol] 140 mmol/L Normal 136-145 [facility] ([place]) Comment on above: Performed By: #### A MANJULA, CBC, ADIFF, GFR, BMP #### [place] [address] Total Protein 6.5 G/dL Normal 6.4-8.2 [facility] ([place]) Comment on above: Performed By: #### A MANJULA, CBC, ADIFF, GFR, BMP #### [place] [address] Urea nitrogen [Mass/Vol] 12 mg/dL Normal 7-18 [facility] ([place]) Comment on above: Performed By: #### A MANJULA, CBC, ADIFF, GFR, BMP #### [address] [address] CVFLURVon 01-31-2024 FLU A PCR Negative Normal Negative [facility] ([place]) Comment on above: Performed By: #### A MANJULA, CBC, ADIFF, GFR, BMP #### [address] [address] FLU B PCR Negative Normal Negative [facility] ([place]) Comment on above: Performed By: #### A MANJULA, CBC, ADIFF, GFR, BMP #### [address] [address] RSV PCR Negative Normal Negative [facility] ([place]) Comment on above: Performed By: #### A MANJULA, CBC, ADIFF, GFR, BMP #### [place] [address] [place], [place] [address] SARS-CoV-2 (COVID-19) RNA FAUSTO+probe Ql (Unsp spec) Negative Normal Negative [facility] ([place]) Comment on above: Result Comment: Resu lts [...] A MANJULA, CBC, ADIFF, GFR, BMP #### [place] [address] [place], [place] [address] LABORATORYOrdered By: SYSTEM SYSTEM on 01-31-2024 Albumin [...] Lactic Acid Lvl 1.3 mmol/L Normal 0.4-2.0 [facility] ([place]) Comment on above: Performed By: #### A MANJULA, CBC, ADIFF, GFR, BMP #### [place] [address] [place], [place] [address] No Panel Informationon 01-30 GSAER Gram Positive Cocci in pairs [facility] GSANA Gram Positive Cocci in pairs [facility] Microscopic examination of blood, culture Enterococcus faecalis Isolated from aerobe and anaerobe bottles. ASHLEIGH to follow [facility] Microscopic examination of blood, culture Enterococcus faecalis Isolated from aerobe and anaerobe bottles. Final report to follow. [facility] XR CHEST 2 VIEWSon 4 XR CHEST [...] 01/31/2024 12:50:22 AM Ordering Provider: MALGORZATA Woody [facility] ([place]) LABORATORYOrdered By: Beckie Alvarez on 01-30-2024 Appearance [...] SS UAon 01-30-2024 Color (U) Yellow Normal [facility] ([place]) Comment on above: Performed By: #### A MANJULA, CBC, ADIFF, GFR, BMP #### [address] [address] Glucose (U) [Mass/Vol] Negative Normal Negative [facility] ([place]) Comment on above: Performed By: #### A MANJULA, CBC, ADIFF, GFR, BMP #### [place] [address] Ketones Ql (U) Negative Normal Negative [facility] ([place]) Comment on above: Performed By: #### A MANJULA, CBC, ADIFF, GFR, BMP #### [place] [address] UA Appear Clear Normal Clear [facility] ([place]) Comment on above: Performed By: #### A MANJULA, CBC, ADIFF, GFR, BMP #### [place] [address] UA Blood Negative Normal Negative [facility] ([place]) Comment on above: Performed By: #### A MANJULA, CBC, ADIFF, GFR, BMP #### [place] [address] UA Leuk Est Negative Normal Negative [facility] ([place]) Comment on above: Performed By: #### A MANJULA, CBC, ADIFF, GFR, BMP #### [place] [address] UA Nitrite Negative Normal Negative [facility] ([place]) Comment on above: Performed By: #### A MANJULA, CBC, ADIFF, GFR, BMP #### [place] [address] UA pH 7.0 Normal 5.0 - 8.0 [facility] ([place]) Comment on above: Performed By: #### A MANJULA, CBC, ADIFF, GFR, BMP #### [place] [address] UA Protein Negative Normal Negative [facility] ([place]) Comment on above: Performed By: #### A MANJULA, CBC, ADIFF, GFR, BMP #### [address] [address] UA Spec Grav 1.020 Normal 1.015-1.02 5 [facility] ([place]) Comment on above: Performed By: #### A MANJULA, CBC, ADIFF, GFR, BMP #### [address] [address] UA Specimen Type Straight Cath Normal [facility] ([place]) Comment on above: Performed By: #### A MANJULA, CBC, ADIFF, GFR, BMP #### [address] [address] UA Urobilinogen 2.0 E.U./dL Abnormal 0.2-1.0 [facility] ([place]) Comment on above: Performed By: #### A MANJULA, CBC, ADIFF, GFR, BMP #### [place] [address] Urobilinogen (U) [Mass/Vol] Negative Normal Negative [facility] ([place]) Comment on above: Performed By: #### A MANJULA, CBC, ADIFF, GFR, BMP #### [address] [address] .Auto Diffon 01-25-2024 Basophil, Absolute 0.0 10 3/mcL Normal 0.0-0.2 [facility] ([place]) Comment on above: Performed By: #### A MANJULA, CBC, ADIFF, GFR, BMP #### [address] [address] Basophils/100 WBC (Bld) 0.9 % Normal 0.0-2.5 [facility] ([place] Comment on above: Performed By: #### A MANJULA, CBC, ADIFF, GFR, BMP #### [address] [address] Eosinophil, Absolute 0.0 10 3/mcL Normal 0.0-0.4 [facility] ([place]) Comment on above: Performed By: #### A MANJULA, CBC, ADIFF, GFR, BMP #### Rosa Maria[address] [address] Eosinophils/100 WBC (Bld) 0.5 % Normal 0.0-7.0 [facility] ([place]) Comment on above: Performed By: #### A MANJULA, CBC, ADIFF, GFR, BMP #### [address] [address] Lymphocyte, Absolute 0.9 10 3/mcL Normal 0.8-3.9 [facility] ([place]) Comment on above: Performed By: #### A MANJULA, CBC, ADIFF, GFR, BMP #### [address] [address] Lymphocytes/100 WBC (Bld) 16.2 % Normal 10.0-50.0 [facility] ([place]) Comment on above: Performed By: #### A MANJULA, CBC, ADIFF, GFR, BMP #### [address] [address] Monocyte, Absolute 0.6 10 3/mcL Normal 0.2-1.0 [facility] ([place]) Comment on above: Performed By: #### A MANJULA, CBC, ADIFF, GFR, BMP #### [address] [address] Monocytes/100 WBC (Bld) 11.9 % Normal 1.7-13.0 [facility] ([place]) Comment on above: Performed By: #### A MANJULA, CBC, ADIFF, GFR, BMP #### [address] [address] Neutrophils/100 WBC (Bld) 70.5 % Normal 37.0-80.0 [facility] ([place]) Comment on above: Performed By: #### A MANJULA, CBC, ADIFF, GFR, BMP #### [address] [address] .GFRon 01-25-2024 GFR 92 ml/min/1.73sqm Normal [facility] ([place]) Comment on above: Result [...] mL/min/1.73 square meters Performed By: #### A MNAJULA, CBC, ADIFF, GFR, BMP #### [address] [address] GFR Non- 76 ml/min/1.73sqm Normal [facility] ([place]) Comment on above: Result Comment: GFR Population [...] MANJULA, CBC, ADIFF, GFR, BMP #### [address] [address] .NEUABSon 01-25-2024 Neutrophil, Absolute 3.8 10 3/mcL Normal 2.9-6.2 [facility] ([place]) Comment on above: Performed By: #### A MANJULA, CBC, ADIFF, GFR, BMP #### [address] [address] BMPon 01-25-2024 BUN/Creatinine Ratio 12 ratio Normal 7-27 [facility] ([place]) Comment on above: Performed By: #### A MANJULA, CBC, ADIFF, GFR, BMP #### [address] [address] Calcium [Mass/Vol] 8.2 mg/dL Low 8.4-10.2 [facility] ([place]) Comment on above: Performed By: #### A MANJULA, CBC, ADIFF, GFR, BMP #### [address] [address] Chloride [Moles/Vol] 100 mmol/L Normal 98-107 [facility] ([place]) Comment on above: Performed By: #### A MANJULA, CBC, ADIFF, GFR, BMP #### [address] [address] CO2 [Moles/Vol] 29 mmol/L Normal 23-31 [facility] ([place]) Comment on above: Performed By: #### A MANJULA, CBC, ADIFF, GFR, BMP #### [address] [address] Creatinine [Mass/Vol] 0.73 mg/dL Normal 0.55-1.02 [facility] ([place]) Comment on above: Performed By: #### A MANJULA, CBC, ADIFF, GFR, BMP #### [address] [address] Electrolyte Balance 6.0 mEq/L Normal 4.0-15.0 [facility] ([place]) Comment on above: Performed By: #### A MANJULA, CBC, ADIFF, GFR, BMP #### [address] [address] Glucose [Mass/Vol] 111 mg/dL High 83-110 [facility] ([place]) Comment on above: Performed By: #### A MANJULA, CBC, ADIFF, GFR, BMP #### [address] [address] Potassium [Moles/Vol] 4.0 mmol/L Normal 3.5-5.1 [facility] ([place]) Comment on above: Performed By: #### A MANJULA, CBC, ADIFF, GFR, BMP #### [address] [address] Sodium [Moles/Vol] 135 mmol/L Low 136-145 [facility] ([place]) Comment on above: Performed By: #### A MANJULA, CBC, ADIFF, GFR, BMP #### [place] [id number] Urea nitrogen [Mass/Vol] 9 mg/dL Normal 7-18 [facility] ([place]) Comment on above: Performed By: #### A MANJULA, CBC, ADIFF, GFR, BMP #### [place] [id number] CBCon 01-25-2024 Erythrocyte distribution width (RBC) [Ratio] 15.5 % High 11.5-14.5 [facility] ([place]) Comment on above: Performed By: #### A MANJULA, CBC, ADIFF, GFR, BMP #### [place] [address] Hematocrit (Bld) [Volume fraction] 31.8 % Low 37.0-47.0 [facility] ([place]) Comment on above: Performed By: #### A MANJLUA, CBC, ADIFF, GFR, BMP #### [place] [address] Hgb 10.3 G/dL Low 12.0-16.0 [facility] ([place]) Comment on above: Performed By: #### A MANJULA, CBC, ADIFF, GFR, BMP #### [place] [id number] MCH (RBC) [Entitic mass] 30.5 pg Normal 27.0-31.2 [facility] ([place]) Comment on above: Performed By: #### A MANJULA, CBC, ADIFF, GFR, BMP #### [place] [address] MCHC 32.4 G/dL Low 33.0-37.0 [facility] ([place]) Comment on above: Performed By: #### A MANJULA, CBC, ADIFF, GFR, BMP #### [place] [phone] MCV (RBC) [Entitic vol] 94.1 fL High 80.0-94.0 [facility] ([place]) Comment on above: Performed By: #### A MANJULA, CBC, ADIFF, GFR, BMP #### [address] [address] Platelet 255 10 3/mcL Normal 130-400 [facility] ([place]) Comment on above: Performed By: #### A MANJULA, CBC, ADIFF, GFR, BMP #### [address] [address] Platelet mean volume (Bld) [Entitic vol] 7.6 fL Normal 7.4-10.4 [facility] ([place]) Comment on above: Performed By: #### A MANJULA, CBC, ADIFF, GFR, BMP #### [address] [address] RBC 3.38 10 6/mcL Low 4.20-5.40 [facility] ([place]) Comment on above: Performed By: #### A MANJULA, CBC, ADIFF, GFR, BMP #### [address] [address] WBC 5.4 10 3/mcL Normal 4.6-10.8 [facility] ([place]) Comment on above: Performed By: #### A MANJULA, CBC, ADIFF, GFR, BMP #### [address] [address] LABORATORYOrdered By: SYSTEM SYSTEM on 01-25-2024 Basophil, [...] 10,000 -<50,000 CFU/ml Normal urogenital raghu Normal [facility] Comment on above: Performed By: #### 6 30-4 ####[facility] LABCLIA [id number] [place] [address] [place] CNPNon 01-11-2024 CNPN Normal [facility] CNPNon 01-07-2024 CNPN Normal [facility] CNPNon 01-06-2024 CNPN Normal [facility] Bacteria Ur Culton 4 Bacteria identified Cx Nom (U) Abnormal [facility] Comment on above: Performed By: #### 6 30-4 ####[facility] LABCLIA [id number] [place] [address] [place] CNPNon 12-16-2023 CNPN Normal [facility] CNPNon 12-15-2023 CNPN Normal [facility] CNPNon 12-14-2023 CNPN Normal [facility] Bacteria Ur Culton 4 Bacteria identified Cx Nom (U) Abnormal [facility] Comment on above: Performed By: #### 6 30-4 ####[facility] LABCLIA [id number] [place] [address] [place] CNOVon 12-13-2023 CNOV Normal [facility] CNPNon 12-13-2023 CNPN Normal [facility] URINALYSIS, REFLEX MICROSCOP ICon 12-13-2023 BACTERIA UL >9821 High Negative [facility] Comment on above: Order Comment: Speci men Type: URINE SPECIMENOrdering Facility: [facility] Address: [address] [place] [address] Performed By: #### L [id number] ####[facility] LABCLIA [id number] [place] [address] [place] Bilirubin Ql (U) Negative Normal Negative [facility] Comment on above: Order Comment: Speci men Type: URINE SPECIMENOrdering Facility: [facility] Address: [address] [place] [address] Performed By: #### L [id number] ####[facility] LABCLIA [id number] [place] [address] [place] Clarity (Unsp spec) Cloudy Abnormal Clear Paulo [facility] Comment on above: Order Comment: Speci men Type: URINE SPECIMENOrdering Facility: [facility] Address: [address] [place] [address] Performed By: #### L [id number] ####[facility] LABCLIA [id number] [place] [address] [place] Color (U) Yellow Normal Yellow [facility] Comment on above: Order Comment: Speci men Type: URINE SPECIMENOrdering Facility: [facility] Address: [address] [place] [address] Performed By: #### L [id number] ####[facility] LABCLIA [id number] [place] [address] [place] Epithelial cells LM.HPF (Urine sed) [#/Area] Moderate Normal [facility] Comment on above: Order Comment: Speci men Type: URINE SPECIMENOrdering Facility: [facility] Address: [address] [place] [address] Performed By: #### L [id number] ####[facility] LABCLIA [id number] [place] [address] [place] Glucose Test strip (U) [Mass/Vol] Negative Normal Negative [facility] Comment on above: Order Comment: Speci men Type: URINE SPECIMENOrdering Facility: [facility] Address: [address] [place] [address] Performed By: #### L [id number] ####[facility] LABCLIA [id number] [place] [address] [place] Hemoglobin Ql (U) Trace Abnormal Negative [facility] Comment on above: Order Comment: Speci men Type: URINE SPECIMENOrdering Facility: [facility] Address: [address] [place] [address] Performed By: #### L [id number] ####[facility] LABCLIA [id number] [place] [address] [place] Hyaline casts (Urine sed) [#/Area] 1-3 /LPF Abnormal 0 /LPF [facility] Comment on above: Order Comment: Speci men Type: URINE SPECIMENOrdering Facility: [facility] Address: [address] [place] [address] Performed By: #### L [id number] ####[facility] LABCLIA [id number] [place] [address] [place] Ketones Ql (U) Negative Normal Negative [facility] Comment on above: Order Comment: Speci men Type: URINE SPECIMENOrdering Facility: [facility] Address: [address] [place] [address] Performed By: #### L [id number] ####[facility] LABCLIA [id number] [place] [address] [place] Leukocyte esterase Test strip Ql (U) 3+ Abnormal Negative [facility] Comment on above: Order Comment: Speci men Type: URINE SPECIMENOrdering Facility: [facility] Address: [address] [place] [address] Performed By: #### L [id number] ####[facility] LABCLIA [id number] [place] [address] [place] Nitrite Ql (U) Negative Normal Negative [facility] Comment on above: Order Comment: Speci men Type: URINE SPECIMENOrdering Facility: [facility] Address: [address] [place] [address] Performed By: #### L [id number] ####[facility] LABCLIA [id number] [id number] [address] [place] pH (U) 7.5 [pH] Normal <8.5 [facility] Comment on above: Order Comment: Speci men Type: URINE SPECIMENOrdering Facility: [facility] Address: [address] [place] [address] Performed By: #### L [id number] ####[facility] LABIA [id number] [place] [address] [place] Protein (U) [Mass/Vol] Trace Abnormal Negative Cl [facility] Comment on above: Order Comment: Speci men Type: URINE SPECIMENOrdering Facility: [facility] Address: [address] [place] [address] Performed By: #### L [id number] ####[facility] LABIA [id number] [place] [address] [place] RBC LM.HPF (Urine sed) [#/Area] /[HPF] Abnormal 0-2 /HPF [facility] Comment on above: Order Comment: Speci men Type: URINE SPECIMENOrdering Facility: [facility] Address: [address] [place] [address] Performed By: #### L [id number] ####[facility] [id number] [place] [address] [place] Specific gravity (U) [Rel density] 1.008 Normal 1.005-1.03 0 [facility] Comment on above: Order Comment: Speci men Type: URINE SPECIMENOrdering Facility: [facility] Address: [address] [place] [address] Performed By: #### L [id number] ####[facility] LABIA [id number] [place] [address] [place] Urobilinogen Ql (U) 0.2 EU/dL Normal 0.2-1.0 EU/dL [facility] Comment on above: Order Comment: Speci men Type: URINE SPECIMENOrdering Facility: [facility] Address: [address] [place] [address] Performed By: #### L [id number] ####[facility] LABCLIA [id number] [place] [address] [place] WBC LM.HPF (Urine sed) [#/Area] /[HPF] Abnormal 0-5 /HPF [facility] Comment on above: Order Comment: Speci men Type: URINE SPECIMENOrdering Facility: [facility] Address: [address] [place] [address] Performed By: #### L [id number] ####[facility] LABCLIA [id number] [place] [address] [place] Yeast.budding LM.HPF (Urine sed) [#/Area] Present Abnormal None Seen [facility] Comment on above: Order Comment: Speci men Type: URINE SPECIMENOrdering Facility: [facility] Address: [address] [place] [address] Performed By: #### L [id number] ####[facility] LABIA [id number] [place] [address] [place] .GFRon 12-09-2023 GFR 72 ml/min/1.73sqm Normal [facility] ([place]) Comment on above: Result Comment: GFR Population [...] CBC, ADIFF, GFR, BMP #### [place] Maria [place] [address] [place], [place] [address] GFR Non- 60 ml/min/1.73sqm Normal [facility] ([place]) Comment on above: Result Comment: GFR Population [...] MANJULA, CBC, ADIFF, GFR, BMP #### [address] [address] BMPon 12-09-2023 BUN/Creatinine Ratio 19 ratio Normal 7-27 [facility] ([place]) Comment on above: Performed By: #### A MANJULA, CBC, ADIFF, GFR, BMP #### [address] [address] Calcium [Mass/Vol] 8.5 mg/dL Normal 8.4-10.2 [facility] ([place]) Comment on above: Performed By: #### A MANJULA, CBC, ADIFF, GFR, BMP #### [address] [address] Chloride [Moles/Vol] 103 mmol/L Normal 98-107 [facility] ([place]) Comment on above: Performed By: #### A MANJULA, CBC, ADIFF, GFR, BMP #### [address] [address] CO2 [Moles/Vol] 31 mmol/L Normal 23-31 [facility] ([place]) Comment on above: Performed By: #### A MANJULA, CBC, ADIFF, GFR, BMP #### [address] [address] Creatinine [Mass/Vol] 0.90 mg/dL Normal 0.55-1.02 [facility] ([place]) Comment on above: Performed By: #### A MANJULA, CBC, ADIFF, GFR, BMP #### [address] [address] Electrolyte Balance 9.0 mEq/L Normal 4.0-15.0 [facility] ([place]) Comment on above: Performed By: #### A MANJULA, CBC, ADIFF, GFR, BMP #### [address] [address] Glucose [Mass/Vol] 98 mg/dL Normal 83-110 [facility] ([place]) Comment on above: Performed By: #### A MANJULA, CBC, ADIFF, GFR, BMP #### [address] [address] Potassium [Moles/Vol] 4.1 mmol/L Normal 3.5-5.1 [facility] ([place]) Comment on above: Performed By: #### A MANJULA, CBC, ADIFF, GFR, BMP #### [address] [address] Sodium [Moles/Vol] 143 mmol/L Normal 136-145 [facility] ([place]) Comment on above: Performed By: #### A MANJULA, CBC, ADIFF, GFR, BMP #### [address] [address] Urea nitrogen [Mass/Vol] 17 mg/dL Normal 7-18 [facility] ([place]) Comment on above: Performed By: #### A MANJULA, CBC, ADIFF, GFR, BMP #### [address] [address] LABORATORYOrdered By: SYSTEM SYSTEM on 12-09-2023 Calcium [...] 0.0 10 3/mcL Normal 0.0-0.2 [facility] ([place]) Comment on above: Performed By: #### A MANJULA, CBC, ADIFF, GFR, BMP #### [address] [address] Basophils/100 WBC (Bld) 0.5 % Normal 0.0-2.5 [facility] ([place]) Comment on above: Performed By: #### A MANJULA, CBC, ADIFF, GFR, BMP #### [address] [address] Eosinophil, Absolute 0.1 10 3/mcL Normal 0.0-0.4 [facility] ([place]) Comment on above: Performed By: #### A MANJULA, CBC, ADIFF, GFR, BMP #### [address] [address] Eosinophils/100 WBC (Bld) 2.3 % Normal 0.0-7.0 [facility] ([place]) Comment on above: Performed By: #### A MANJULA, CBC, ADIFF, GFR, BMP #### [address] [address] Lymphocyte, Absolute 0.9 10 3/mcL Normal 0.8-3.9 [facility] ([place]) Comment on above: Performed By: #### A MANJULA, CBC, ADIFF, GFR, BMP #### [address] [address] Lymphocytes/100 WBC (Bld) 18.4 % Normal 10.0-50.0 [facility] ([place]) Comment on above: Performed By: #### A MANJULA, CBC, ADIFF, GFR, BMP #### [address] [address] Monocyte, Absolute 0.3 10 3/mcL Normal 0.2-1.0 [facility] ([place]) Comment on above: Performed By: #### A MANJULA, CBC, ADIFF, GFR, BMP #### [address] [address] Monocytes/100 WBC (Bld) 5.9 % Normal 1.7-13.0 [facility] ([place]) Comment on above: Performed By: #### A MANJULA, CBC, ADIFF, GFR, BMP #### [address] [address] Neutrophils/100 WBC (Bld) 72.9 % Normal 37.0-80.0 [facility] ([place]) Comment on above: Performed By: #### A MANJULA, CBC, ADIFF, GFR, BMP #### [address] [address] .GFRon 12-03-2023 GFR Non- 64 ml/min/1.73sqm Normal [facility] ([place]) Comment on above: Result [...] meters Performed By: #### U A #### [address] [address] GFR 77 ml/min/1.73sqm Normal [facility] ([place]) Comment on above: Result [...] meters Performed By: #### U A #### [address] [address] .NEUABSon 12-03-2023 Neutrophil, Absolute 3.5 10 3/mcL Normal 2.9-6.2 [facility] ([place]) Comment on above: Performed By: #### A MANJULA, CBC, ADIFF, GFR, BMP #### [address] [address] BMPon 12-03-2023 BUN/Creatinine Ratio 14 ratio Normal 7-27 [facility] ([place]) Comment on above: Performed By: #### A MANJULA, CBC, ADIFF, GFR, BMP #### [address] [address] Calcium [Mass/Vol] 8.5 mg/dL Normal 8.4-10.2 [facility] ([place]) Comment on above: Performed By: #### A MANJULA, CBC, ADIFF, GFR, BMP #### [address] [address] Chloride [Moles/Vol] 102 mmol/L Normal 98-107 [facility] ([place]) Comment on above: Performed By: #### A MANJULA, CBC, ADIFF, GFR, BMP #### [address] [address] CO2 [Moles/Vol] 31 mmol/L Normal 23-31 [facility] ([place]) Comment on above: Performed By: #### A MANJULA, CBC, ADIFF, GFR, BMP #### [address] [address] Creatinine [Mass/Vol] 0.85 mg/dL Normal 0.55-1.02 [facility] ([place]) Comment on above: Performed By: #### A MANJULA, CBC, ADIFF, GFR, BMP #### [address] [address] Electrolyte Balance 8.0 mEq/L Normal 4.0-15.0 [facility] ([place]) Comment on above: Performed By: #### A MANJULA, CBC, ADIFF, GFR, BMP #### [address] [address] Glucose [Mass/Vol] 113 mg/dL High 83-110 [facility] ([place]) Comment on above: Performed By: #### A MANJULA, CBC, ADIFF, GFR, BMP #### [address] [address] Potassium [Moles/Vol] 3.8 mmol/L Normal 3.5-5.1 [facility] ([place]) Comment on above: Performed By: #### A MANJULA, CBC, ADIFF, GFR, BMP #### [address] [address] Sodium [Moles/Vol] 141 mmol/L Normal 136-145 [facility] ([place]) Comment on above: Performed By: #### A MANJULA, CBC, ADIFF, GFR, BMP #### [address] [address] Urea nitrogen [Mass/Vol] 12 mg/dL Normal 7-18 [facility] ([place]) Comment on above: Performed By: #### A MANJULA, CBC, ADIFF, GFR, BMP #### [address] [address] CBCon 12-03-2023 Erythrocyte distribution width (RBC) [Ratio] 13.1 % Normal 11.5-14.5 [facility] ([place]) Comment on above: Performed By: #### A MANJULA, CBC, ADIFF, GFR, BMP #### [address] [address] Hematocrit (Bld) [Volume fraction] 31.1 % Low 37.0-47.0 [facility] ([place]) Comment on above: Performed By: #### A MANJULA, CBC, ADIFF, GFR, BMP #### [address] [address] Hgb 10.7 G/dL Low 12.0-16.0 [facility] ([place]) Comment on above: Performed By: #### A MANJULA, CBC, ADIFF, GFR, BMP #### [address] [address] MCH (RBC) [Entitic mass] 32.5 pg High 27.0-31.2 [facility] ([place]) Comment on above: Performed By: #### A MANJULA, CBC, ADIFF, GFR, BMP #### [address] [address] MCHC 34.5 G/dL Normal 33.0-37.0 [facility] ([place]) Comment on above: Performed By: #### A MANJULA, CBC, ADIFF, GFR, BMP #### [address] [address] MCV (RBC) [Entitic vol] 94.2 fL High 80.0-94.0 [facility] ([place]) Comment on above: Performed By: #### A MANJULA, CBC, ADIFF, GFR, BMP #### [address] [address] Platelet 283 10 3/mcL Normal 130-400 [facility] ([place]) Comment on above: Performed By: #### A MANJULA, CBC, ADIFF, GFR, BMP #### [address] [address] Platelet mean volume (Bld) [Entitic vol] 7.2 fL Low 7.4-10.4 [facility] ([place]) Comment on above: Performed By: #### A MANJULA, CBC, ADIFF, GFR, BMP #### [address] [address] RBC 3.30 10 6/mcL Low 4.20-5.40 [facility] ([place]) Comment on above: Performed By: #### A MANJULA, CBC, ADIFF, GFR, BMP #### [address] [address] WBC 4.8 10 3/mcL Normal 4.6-10.8 [facility] ([place]) Comment on above: Performed By: #### A MANJULA, CBC, ADIFF, GFR, BMP #### [place] [address] [place], [place] [address] LABORATORYOrdered By: SYSTEM SYSTEM on 12-03-2023 Basophil, [...] Detected AH Auto Viro/Sero SS B. parapertussis [id number] DNA FAUSTO+non-probe Ql (Nph) Not Detected *NA* [...] This assay has been validated in the [facility] for use with nasopharyngeal specimens in [facility]. If a non-validated specimen or [...] 12-03-2023 Adenovirus Not detected Normal Not Detected [facility] ([place]) Comment on above: Performed By: #### A MANJULA, CBC, ADIFF, GFR, BMP #### [address] [address] Bordetella Parapertussis Not detected Normal Not Detected [facility] ([place]) Comment on above: Performed By: #### A MANJULA, CBC, ADIFF, GFR, BMP #### [address] [address] Bordetella Pertussis Not detected Normal Not Detected [facility] ([place]) Comment on above: Performed By: #### A MANJULA, CBC, ADIFF, GFR, BMP #### [address] [address] Chlamydophila pneumoniae Not detected Normal Not Detected [facility] ([place]) Comment on above: Performed By: #### A MANJULA, CBC, ADIFF, GFR, BMP #### [address] [address] Coronavirus 229E (Not COVID-19) Not detected Normal Not Detected [facility] ([place]) Comment on above: Performed By: #### A MANJULA, CBC, ADIFF, GFR, BMP #### [address] [address] Coronavirus HKU1 (Not COVID-19) Not detected Normal Not Detected [facility] ([place]) Comment on above: Performed By: #### A MANJULA, CBC, ADIFF, GFR, BMP #### [place] [address] Coronavirus NL63 (Not COVID-19) Not detected Normal Not Detected [facility] ([place]) Comment on above: Performed By: #### A MANJULA, CBC, ADIFF, GFR, BMP #### [address] [address] Coronavirus OC43 (Not COVID-19) Not detected Normal Not Detected [facility] ([place]) Comment on above: Performed By: #### A MANJULA, CBC, ADIFF, GFR, BMP #### [address] [address] Human Metapneumovirus Not detected Normal Not Detected [facility] ([place] Comment on above: Performed By: #### A MANJULA, CBC, ADIFF, GFR, BMP #### [place] [address] Influenza A Not detected Normal Not Detected [facility] [place] Comment on above: Performed By: #### A MANJULA, CBC, ADIFF, GFR, BMP #### [place] [address] Influenza B Not detected Normal Not Detected [facility] ([place]) Comment on above: Performed By: #### A MANJULA, CBC, ADIFF, GFR, BMP #### [place] [address] Mycoplasma pneumoniae Not detected Normal Not Detected [facility] ([place]) Comment on above: Performed By: #### A MANJULA, CBC, ADIFF, GFR, BMP #### [place] [address] Parainfluenza 1 Not detected Normal Not Detected [facility] ([place]) Comment on above: Performed By: #### A MANJULA, CBC, ADIFF, GFR, BMP #### [place] [address] Parainfluenza 2 Not detected Normal Not Detected [facility] ([place]) Comment on above: Performed By: #### A MANJULA, CBC, ADIFF, GFR, BMP #### [place] [address] Parainfluenza 3 Not detected Normal Not Detected [facility] ([place]) Comment on above: Performed By: #### A MANJULA, CBC, ADIFF, GFR, BMP #### [place] [address] Parainfluenza 4 Not detected Normal Not Detected [facility] ([place]) Comment on above: Performed By: #### A MANJULA, CBC, ADIFF, GFR, BMP #### [facility] [address] [place], [place] [address] Respiratory Syncytial Virus Not detected Normal Not Detected [facility] ([place]) Comment on above: Performed By: #### A MANJULA, CBC, ADIFF, GFR, BMP #### [facility] [address], [place] [address] Rhinovirus/Enterovirus Not detected Normal Not Detected [facility] ([place]) Comment on above: Performed By: #### A MANJULA, CBC, ADIFF, GFR, BMP #### [facility] [address], [place] [address] SARS-CoV-2 (COVID-19) RNA FAUSTO+probe Ql (Unsp spec) Not detected Normal Not Detected [facility] ([place]) Comment on above: Result Comment: This test is being used under the FDA EUA procedure. This assay has been validated in the [facility] for use with nasopharyngeal specimens in [facility]. If a non-validated specimen or [...] CBC, ADIFF, GFR, BMP #### Rosa Maria [address] [address] UAon 12-03-2023 Color (U) Yellow Normal [facility] ([place]) Comment on above: Performed By: #### U A #### [place] [address] Glucose (U) [Mass/Vol] Negative Normal Negative [facility] ([place]) Comment on above: Performed By: #### U A #### [address] [address] Ketones Ql (U) Negative Normal Negative [facility] ([place]) Comment on above: Performed By: #### U A #### [place] [address] UA Appear Clear Normal Clear [facility] ([place]) Comment on above: Performed By: #### U A #### [place] [address] UA Blood Negative Normal Negative [facility] ([place]) Comment on above: Performed By: #### U A #### [address] [address] UA Leuk Est Negative Normal Negative [facility] ([place]) Comment on above: Performed By: #### U A #### [place] [address] UA Nitrite Negative Normal Negative [facility] ([place]) Comment on above: Performed By: #### U A #### [address] [address] UA pH 7.0 Normal 5.0 - 8.0 [facility] ([place]) Comment on above: Performed By: #### U A #### [address] [address] UA Protein Negative Normal Negative [facility] ([place]) Comment on above: Performed By: #### U A #### [place] [address] UA Spec Grav 1.010 Abnormal 1.015-1.02 5 [facility] ([place]) Comment on above: Performed By: #### U A #### [address] [address] UA Specimen Type Clean Catch Normal [facility] ([place]) Comment on above: Performed By: #### U A #### [address] [address] UA Urobilinogen 0.2 E.U./dL Normal 0.2-1.0 [facility] ([place]) Comment on above: Performed By: #### U A #### [address] [address] Urobilinogen (U) [Mass/Vol] Negative Normal Negative [facility] ([place]) Comment on above: Performed By: #### U A #### [address] [address] .Auto Diffon 12-02-2023 Basophil, Absolute 0.0 10 3/mcL Normal 0.0-0.2 [facility] ([place]) Comment on above: Performed By: #### A MANJULA, CBC, ADIFF, GFR, BMP #### [address] [address] Basophils/100 WBC (Bld) 0.9 % Normal 0.0-2.5 [facility] ([place]) Comment on above: Performed By: #### A MANJULA, CBC, ADIFF, GFR, BMP #### [address] [address] Eosinophil, Absolute 0.1 10 3/mcL Normal 0.0-0.4 [facility] ([place]) Comment on above: Performed By: #### A MANJULA, CBC, ADIFF, GFR, BMP #### [address] [address] Eosinophils/100 WBC (Bld) 2.4 % Normal 0.0-7.0 [facility] ([place]) Comment on above: Performed By: #### A MANJULA, CBC, ADIFF, GFR, BMP #### [address] [address] Lymphocyte, Absolute 0.9 10 3/mcL Normal 0.8-3.9 [facility] ([place]) Comment on above: Performed By: #### A MANJULA, CBC, ADIFF, GFR, BMP #### [address] [address] Lymphocytes/100 WBC (Bld) 19.6 % Normal 10.0-50.0 [facility] ([place]) Comment on above: Performed By: #### A MANJULA, CBC, ADIFF, GFR, BMP #### [address] [address] Monocyte, Absolute 0.3 10 3/mcL Normal 0.2-1.0 [facility] ([place]) Comment on above: Performed By: #### A MANJULA, CBC, ADIFF, GFR, BMP #### [address] [address] Monocytes/100 WBC (Bld) 7.0 % Normal 1.7-13.0 [facility] ([place]) Comment on above: Performed By: #### A MANJULA, CBC, ADIFF, GFR, BMP #### [address] [address] Neutrophils/100 WBC (Bld) 70.1 % Normal 37.0-80.0 [facility] ([place]) Comment on above: Performed By: #### A MANJULA, CBC, ADIFF, GFR, BMP #### [address] [address] .GFRon 12-02-2023 GFR 94 ml/min/1.73sqm Normal [facility] ([place]) Comment on above: Result Comment: GFR Population [...] MANJULA, CBC, ADIFF, GFR, BMP #### [address] [address] GFR Non- 77 ml/min/1.73sqm Normal [facility] ([place]) Comment on above: Result Comment: GFR Population [...] MANJULA, CBC, ADIFF, GFR, BMP #### [address] [address] .NEUABSon 12-02-2023 Neutrophil, Absolute 3.2 10 3/mcL Normal 2.9-6.2 [facility] ([place]) Comment on above: Performed By: #### A MANJULA, CBC, ADIFF, GFR, BMP #### [address] [address] BMPon 12-02-2023 BUN/Creatinine Ratio 17 ratio Normal 7-27 [facility] ([place]) Comment on above: Performed By: #### A MANJULA, CBC, ADIFF, GFR, BMP #### [address] [address] Calcium [Mass/Vol] 8.7 mg/dL Normal 8.4-10.2 [facility] ([place]) Comment on above: Performed By: #### A MANJULA, CBC, ADIFF, GFR, BMP #### [place] [address] Chloride [Moles/Vol] 102 mmol/L Normal 98-107 [facility] ([place]) Comment on above: Performed By: #### A MANJULA, CBC, ADIFF, GFR, BMP #### [place] [address] CO2 [Moles/Vol] 29 mmol/L Normal 23-31 [facility] ([place]) Comment on above: Performed By: #### A MANJULA, CBC, ADIFF, GFR, BMP #### [place] [address] Creatinine [Mass/Vol] 0.72 mg/dL Normal 0.55-1.02 [facility] ([place]) Comment on above: Performed By: #### A MANJULA, CBC, ADIFF, GFR, BMP #### [place] [address] Electrolyte Balance 10.0 mEq/L Normal 4.0-15.0 [facility] ([place]) Comment on above: Performed By: #### A MANJULA, CBC, ADIFF, GFR, BMP #### [place] [address] Glucose [Mass/Vol] 103 mg/dL Normal 83-110 [facility] ([place]) Comment on above: Performed By: #### A MANJULA, CBC, ADIFF, GFR, BMP #### [place] [address] Potassium [Moles/Vol] 4.4 mmol/L Normal 3.5-5.1 [facility] ([place]) Comment on above: Performed By: #### A MANJULA, CBC, ADIFF, GFR, BMP #### [place] [address] Sodium [Moles/Vol] 141 mmol/L Normal 136-145 [facility] ([place]) Comment on above: Performed By: #### A MANJULA, CBC, ADIFF, GFR, BMP #### [place] [phone] Urea nitrogen [Mass/Vol] 12 mg/dL Normal 7-18 [facility] ([place]) Comment on above: Performed By: #### A MANJULA, CBC, ADIFF, GFR, BMP #### [address] [address] CBCon 12-02-2023 Erythrocyte distribution width (RBC) [Ratio] 13.3 % Normal 11.5-14.5 [facility] ([place]) Comment on above: Performed By: #### A MANJULA, CBC, ADIFF, GFR, BMP #### [address] [address] Hematocrit (Bld) [Volume fraction] 33.2 % Low 37.0-47.0 [facility] ([place]) Comment on above: Performed By: #### A MANJULA, CBC, ADIFF, GFR, BMP #### [place] [id number] Hgb 11.0 G/dL Low 12.0-16.0 [facility] ([place]) Comment on above: Performed By: #### A MANJULA, CBC, ADIFF, GFR, BMP #### [address] [address] MCH (RBC) [Entitic mass] 31.6 pg High 27.0-31.2 [facility] ([place]) Comment on above: Performed By: #### A MANJULA, CBC, ADIFF, GFR, BMP #### [place] [phone] MCHC 33.2 G/dL Normal 33.0-37.0 [facility] ([place]) Comment on above: Performed By: #### A MANJULA, CBC, ADIFF, GFR, BMP #### [address] [address] MCV (RBC) [Entitic vol] 95.2 fL High 80.0-94.0 [facility] ([place]) Comment on above: Performed By: #### A MANJULA, CBC, ADIFF, GFR, BMP #### [place] [id number] Platelet 319 10 3/mcL Normal 130-400 [facility] ([place]) Comment on above: Performed By: #### A MANJULA, CBC, ADIFF, GFR, BMP #### [place] [address] Platelet mean volume (Bld) [Entitic vol] 7.5 fL Normal 7.4-10.4 [facility] ([place]) Comment on above: Performed By: #### A MANJULA, CBC, ADIFF, GFR, BMP #### [place] [address] RBC 3.49 10 6/mcL Low 4.20-5.40 [facility] ([place]) Comment on above: Performed By: #### A MANJULA, CBC, ADIFF, GFR, BMP #### [place] [address] WBC 4.5 10 3/mcL Low 4.6-10.8 [facility] ([place]) Comment on above: Performed By: #### A MANJULA, CBC, ADIFF, GFR, BMP #### [place] [address] CVFLURVon 12-02-2023 FLU A PCR Negative Normal Negative [facility] ([place]) Comment on above: Performed By: #### A MANJULA, CBC, ADIFF, GFR, BMP #### [address] [address] FLU B PCR Negative Normal Negative [facility] ([place]) Comment on above: Performed By: #### A MANJULA, CBC, ADIFF, GFR, BMP #### [address] [address] RSV PCR Negative Normal Negative [facility] ([place]) Comment on above: Performed By: #### A MANJULA, CBC, ADIFF, GFR, BMP #### [place] [address] SARS-CoV-2 (COVID-19) RNA FAUSTO+probe Ql (Unsp spec) Negative Normal Negative [facility] ([place]) Comment on above: Result Comment: Resu lts [...] CBC, ADIFF, GFR, BMP #### Rosa Maria [place] [id number] LABORATORYOrdered By: Mina Pedersen on 12-02-2023 FLUAV [...] on 11-26-2023 Chloride [Moles/Vol] 100 mmol/L 98-107 [facility] Glucose [Mass/Vol] 117 mg/dL 74-106 [facility] Comment on above: Fasting Glucose resu lt from 100 to 125 mg/dL suggests IMPAIRED HOMEOSTASIS per A.D.A. criteria. Hemoglobin (Bld) [Mass/Vol] 11.2 g/dL 12.0-15.0 [facility] Potassium [Moles/Vol] 3.3 mmol/L 3.5-5.1 [facility] Sodium [Moles/Vol] 135 mmol/L 136-145 [facility] WBC (Bld) [#/Vol] 6.1 10*3/uL 4.4-11.0 [facility] Determination of erythrocyte mean corpuscular volume (MCV)Ordered By: Kelby Aguilar on 11-26-2023 MCV (RBC) [Entitic vol] 98.1 fL 81-99 [facility] Erythrocyte distribution wid th ratioOrdered By: Kelby Aguilar on 11-26-2023 Erythrocyte distribution width (RBC) [Ratio] 13.2 % 11.6-14.6 [facility] Erythrocyte distribution wid th standard deviationOrdered By: Kelby Aguilar on 11-26-2023 Erythrocyte distribution width (RBC) [Entitic vol] 47.1 fL 35.1-43.9 [facility] Hematocrit Auto (Bld) [Volum e fraction]Ordered By: Kelby Aguilar on 11-26-2023 Hematocrit (Bld) [Volume fraction] 35.4 % 37-47 [facility] Laboratory - Chemistry and C hemistry - challengeOrdered By: Kelby Aguilar on 11-26-2023 CO2 [Moles/Vol] 27.0 mmol/L 21.0-32.0 [facility] Urea nitrogen/Creatinine [Mass ratio] 17.1 mg/mg 10-20 [facility] - Hematology and Cell countsOrdered By: Kelby Aguilar on 11-26-2023 MCH (RBC) [Entitic mass] 31.0 pg 27.0-32.0 [facility] MCHC (RBC) [Mass/Vol] 31.6 g/dL 32-36 [facility] Platelet mean volume (Bld) [Entitic vol] 10.3 fL 6.2-12.0 [facility] Platelets (Bld) [#/Vol] 215 10*3/uL 150-450 [facility] No Panel InformationOrdered By: Kelby Aguilar on 11-26-2023 Estimated Creatinine Clearance Calc 48.91 ml/min [facility] Estimated GFR (MDRD) Amer 102 mL/min >60 [facility] Comment on above: GFR Calc Estimated GFR (MDRD) Non-Af Amer 84 mL/min >60 [facility] Comment on above: Non- GFR Calc RBC Auto (Bld) [#/Vol]Ordere d By: Kelby Aguilar on 11-26-2023 RBC (Bld) [#/Vol] 3.61 10*6/uL 4.2-5.4 [facility] Serum or plasma calcium nina urement (mass/volume)Ordered By: Kelby Aguilar on 11-26-2023 Calcium [Mass/Vol] 8.6 mg/dL 8.5-10.1 [facility] Serum or plasma creatinine m easurement (mass/volume)Ordered By: Kelby Aguilar on 11-26-2023 Creatinine [Mass/Vol] 0.70 mg/dL 0.55-1.02 [facility] Comment on above: The validity of the calculated GFR & GFRAA in patients over 70 years has not been determined. Clinical correlation is essential. Serum or plasma urea nitroge n measurement (mass/volume)Ordered By: Kelby Aguilar on 11-26-2023 Urea nitrogen [Mass/Vol] 12 mg/dL 7-18 [facility] Thin prep Papanicolaou smear with manual screeningOrdered By: Kelby Aguilar on 11-26-2023 Thin prep Papanicolaou smear with manual screening 8 5-15 [facility] Laboratory - Chemistry and C hemistry - challengeOrdered By: Kelby Aguilar on 11-25-2023 CK [Catalytic activity/Vol] 1138 U/L 26-192 [facility] Absolute lymphocyte countOrd ered By: Smith Ho on 11-23-2023 Lymphocytes Auto (Unsp spec) [#/Vol] 1.14 10*3/uL 0.83-4.51 [facility] Automated lymphocyte count a s percentage of total leukocytesOrdered By: Smith Ho on 11-23-2023 Lymphocytes/100 WBC Auto (Unsp spec) 12.9 % 19-41 [facility] Basophil percentageOrdered B y: Smith Ho on 11-23-2023 Basophil percentage 10-25 SEEN /hpf 0-5 [facility] Basophils/100 WBC (Bld) 0.5 % 0-1 [facility] Chloride [Moles/Vol] 107 mmol/L 98-107 [facility] Eosinophils/100 WBC (Bld) 0.1 % 0-5 [facility] Glucose [Mass/Vol] 122 mg/dL 74-106 [facility] Comment on above: Fasting Glucose resu lt from 100 to 125 mg/dL suggests IMPAIRED HOMEOSTASIS per A.D.A. criteria. Hemoglobin (Bld) [Mass/Vol] 12.3 g/dL 12.0-15.0 [facility] Monocytes/100 WBC (Bld) 9.0 % 0-10 [facility] Neutrophils (Bld) [#/Vol] 6.8 10*3/uL 2.0-7.7 [facility] Neutrophils/100 WBC (Bld) 77.0 % 47-70 [facility] Potassium [Moles/Vol] 3.8 mmol/L 3.5-5.1 [facility] Sodium [Moles/Vol] 141 mmol/L 136-145 [facility] WBC (Bld) [#/Vol] 8.8 10*3/uL 4.4-11.0 [facility] Bilirubin Test strip Ql (U)O rdered By: Smith Ho on 11-23-2023 Bilirubin Ql (U) Negative Negative [facility] Culture, urineOrdered By: Deandre Ho on 11-23-2023 Bacteria identified Cx Nom (U) Presumptive E. coli [facility] Determination of erythrocyte mean corpuscular volume (MCV)Ordered By: Smith Ho on 11-23-2023 MCV (RBC) [Entitic vol] 96.9 fL 81-99 [facility] Erythrocyte distribution wid th ratioOrdered By: Smith Ho on 11-23-2023 Erythrocyte distribution width (RBC) [Ratio] 13.3 % 11.6-14.6 [facility] Erythrocyte distribution wid th standard deviationOrdered By: Smith Ho on 11-23-2023 Erythrocyte distribution width (RBC) [Entitic vol] 47.7 fL 35.1-43.9 [facility] Hematocrit Auto (Bld) [Volum e fraction]Ordered By: Smith Ho on 11-23-2023 Hematocrit (Bld) [Volume fraction] 37.9 % 37-47 [facility] Immature granulocytes/100 WB C Auto (Bld)Ordered By: Smith Ho on 11-23-2023 Immature granulocytes/100 WBC (Bld) 0.500 % 0.0-0.9 [facility] Comment on above: IG% - Immature Granu locytes (promyelocytes, myelocytes and metamyelocytes) > 1% indicates that a LEFT SHIFT is Present. Ketones Test strip Ql (U)Ord ered By: Smith Ho on 11-23-2023 Ketones Ql (U) 5 mg/dl Negative [facility] Laboratory - Chemistry and C hemistry - challengeOrdered By: Smith Ho on 11-23-2023 CK [Catalytic activity/Vol] 2446 U/L 26-192 [facility] CO2 [Moles/Vol] 27.0 mmol/L 21.0-32.0 [facility] Urea nitrogen/Creatinine [Mass ratio] 24.1 mg/mg 10-20 [facility] - Hematology and Cell countsOrdered By: Smith Ho on 11-23-2023 MCH (RBC) [Entitic mass] 31.5 pg 27.0-32.0 [facility] MCHC (RBC) [Mass/Vol] 32.5 g/dL 32-36 [facility] Nucleated RBC/100 WBC (Bld) [Ratio] 0 % 0-5 [facility] Platelet mean volume (Bld) [Entitic vol] 9.9 fL 6.2-12.0 [facility] Platelets (Bld) [#/Vol] 192 10*3/uL 150-450 [facility] Mucus LM Ql (Urine sed)Order ed By: Smith Ho on 11-23-2023 Mucus Ql (Urine sed) 1+ /hpf [facility] Nitrite Test strip Ql (U)Ord ered By: Smith Ho on 11-23-2023 Nitrite Ql (U) Positive Negative [facility] No Panel InformationOrdered By: Smith Ho on 11-23-2023 Urine RBC 0-5 SEEN /hpf 0-5 [facility] Estimated Creatinine Clearance Calc 50.43 ml/min [facility] Estimated GFR (MDRD) Amer 95 mL/min >60 [facility] Comment on above: GFR Calc Estimated GFR (MDRD) Non-Af Amer 79 mL/min >60 [facility] Comment on above: Non- GFR Calc Protein Test strip Ql (U)Ord ered By: Smith Ho on 11-23-2023 Protein Ql (U) 30 mg/dl Negative [facility] RBC Auto (Bld) [#/Vol]Ordere d By: Smith Ho on 11-23-2023 RBC (Bld) [#/Vol] 3.91 10*6/uL 4.2-5.4 [facility] Serum or plasma calcium nina urement (mass/volume)Ordered By: Smith Ho on 11-23-2023 Calcium [Mass/Vol] 9.4 mg/dL 8.5-10.1 [facility] Serum or plasma creatinine m easurement (mass/volume)Ordered By: Smith Ho on 11-23-2023 Creatinine [Mass/Vol] 0.75 mg/dL 0.55-1.02 [facility] Comment on above: The validity of the calculated GFR & GFRAA in patients over 70 years has not been determined. Clinical correlation is essential. Serum or plasma thyroid stim ulating hormone (TSH) measurement (units/volume)Ordered By: Kelby Aguilar on 11-23-2023 TSH Qn 1.59 uIU/mL 0.358-3.74 [facility] Serum or plasma urea nitroge n measurement (mass/volume)Ordered By: Smith Ho on 11-23-2023 Urea nitrogen [Mass/Vol] 18 mg/dL 7-18 [facility] Squamous epithelial cells de tection in urine sediment by light microscopyOrdered By: Smith Ho on 11-23-2023 Epithelial cells.squamous LM Ql (Urine sed) 0-5 SEEN /hpf 5-10 [facility] Thin prep Papanicolaou smear with manual screeningOrdered By: Smith Ho on 11-23-2023 Thin prep Papanicolaou smear with manual screening 7 5-15 [facility] Urine blood detectionOrdered By: Smith Ho on 11-23-2023 RBC Ql (U) 250 /ul Negative [facility] Urine clarityOrdered By: Migue Ho on 11-23-2023 Clarity (U) Cloudy Clear [facility] Urine color determinationOrd ered By: Smith Ho on 11-23-2023 Color (U) Yellow Yellow [facility] Urine glucose detectionOrder ed By: Smith Ho on 11-23-2023 Glucose Ql (U) Normal mg/dl Normal [facility] Urine leukocyte esterase det ection by dipstickOrdered By: Smith Ho on 11-23-2023 Leukocyte esterase Test strip Ql (U) 500 /ul Negative [facility] Urine pHOrdered By: Smith Zaldivar ght on 11-23-2023 pH (U) 6.0 [pH] 5.0 - 8.0 [facility] Urine sediment bacteria coun t by microscopy (number/high power field)Ordered By: Smith Ho on 11-23-2023 Bacteria LM.HPF (Urine sed) [#/Area] 4 /[HPF] None Seen [facility] Urine specific gravity measu rementOrdered By: Smith Ho on 11-23-2023 Specific gravity (U) [Rel density] 1.010 1.002-1.[address] [facility] Urine urobilinogen measureme ntOrdered By: Smith Ho on 11-23-2023 Urobilinogen Ql (U) Normal mg/dl Normal [facility] CNPNon 08-22-2023 CNPN Normal [facility] CBC W Auto Differential pane l (Bld)on 08-18-2023 Basophils (Bld) [#/Vol] 0.08 10*3/uL Normal <0.11 [facility] Comment on above: Order Comment: Speci men Type: BLOOD SPECIMENOrdering Facility: [facility] Address: [address] [place] [address] Performed By: #### 5 7021-8 ####[facility] [id number] [place] [address] [place] Basophils/100 WBC (Bld) 1.3 % Normal [facility] Comment on above: Order Comment: Speci men Type: BLOOD SPECIMENOrdering Facility: [facility] Address: [address] [place] [address] Performed By: #### 5 7021-8 ####[facility] [id number] [place] [address] [place] Differential cell count method Nom (Bld) Auto Normal [facility] Comment on above: Order Comment: Speci men Type: BLOOD SPECIMENOrdering Facility: [facility] Address: [address] [place] [address] Performed By: #### 5 7021-8 ####[facility] [id number] [place] [address] [place] Eosinophils (Bld) [#/Vol] 0.21 10*3/uL Normal <0.46 [facility] Comment on above: Order Comment: Speci men Type: BLOOD SPECIMENOrdering Facility: [facility] Address: [address] [place] [address] Performed By: #### 5 7021-8 ####[facility] [id number] [place] [address] [place] Eosinophils/100 WBC (Bld) 3.4 % Normal [facility] Comment on above: Order Comment: Speci men Type: BLOOD SPECIMENOrdering Facility: [facility] Address: [address] [place] [address] Performed By: #### 5 7021-8 ####[facility] [id number] [place] [address] [place] Erythrocyte distribution width (RBC) [Ratio] 15.9 % High 11.5-15.0 [facility] Comment on above: Order Comment: Speci men Type: BLOOD SPECIMENOrdering Facility: [facility] Address: [address] [place] [address] Performed By: #### 5 7021-8 ####[facility]ITALANYISTEFANIEDavid [id number] [place] [address] [place] Hematocrit (Bld) [Volume fraction] 40.1 % Normal 36.0-46.0 [facility] Comment on above: Order Comment: Speci men Type: BLOOD SPECIMENOrdering Facility: [facility] Address: [address] [place] [address] Performed By: #### 5 7021-8 ####[facility] INSTITUTEDav[facility] [id number] [place] [address] [place] Hemoglobin (Bld) [Mass/Vol] 12.7 g/dL Normal 11.5-15.5 [facility] Comment on above: Order Comment: Speci men Type: BLOOD SPECIMENOrdering Facility: [facility] Address: [address] [place] [address] Performed By: #### 5 7021-8 ####[facility] [id number] [place] [address] [place] Immature granulocytes (Bld) [#/Vol] 10*3/uL Normal <0.10 [facility] Comment on above: Order Comment: Speci men Type: BLOOD SPECIMENOrdering Facility: [facility] Address: [address] [place] [address] Performed By: #### 5 7021-8 ####[facility] CENTERLIA [id number] [place] [address] [place] Immature granulocytes/100 WBC (Bld) 0.2 % Normal [facility] Comment on above: Order Comment: Speci men Type: BLOOD SPECIMENOrdering Facility: [facility] Address: [address] [place] [address] Performed By: #### 5 7021-8 ####[facility] [id number] [place] [address] [place] Lymphocytes (Bld) [#/Vol] 2.16 10*3/uL Normal 1.00-4.00 [facility] Comment on above: Order Comment: Speci men Type: BLOOD SPECIMENOrdering Facility: [facility] Address: [address] [place] [address] Performed By: #### 5 7021-8 ####[facility] [id number] [place] [address] [place] Lymphocytes/100 WBC (Bld) 35.0 % Normal [facility] Comment on above: Order Comment: Speci men Type: BLOOD SPECIMENOrdering Facility: [facility] Address: [address] [place] [address] Performed By: #### 5 7021-8 ####[facility] [id number] [place] [address] [place] MCH (RBC) [Entitic mass] 31.5 pg Normal 26.0-34.0 [facility] Comment on above: Order Comment: Speci men Type: BLOOD SPECIMENOrdering Facility: [facility] Address: [address] [place] [address] Performed By: #### 5 7021-8 ####[facility] [id number] [place] [address] [place] MCHC (RBC) [Mass/Vol] 31.7 g/dL Normal 30.5-36.0 [facility] Comment on above: Order Comment: Speci men Type: BLOOD SPECIMENOrdering Facility: [facility] Address: [address] [place] [address] Performed By: #### 5 7021-8 ####[facility] [id number] [place] [address] [place] MCV (RBC) [Entitic vol] 99.5 fL Normal 80.0-100.0 [facility] Comment on above: Order Comment: Speci men Type: BLOOD SPECIMENOrdering Facility: [facility] Address: [address] [place] [address] Performed By: #### 5 7021-8 ####[facility] [id number] [place] [address] [place] Monocytes (Bld) [#/Vol] 0.47 10*3/uL Normal <0.87 [facility] Comment on above: Order Comment: Speci men Type: BLOOD SPECIMENOrdering Facility: [facility] Address: [address] [place] [address] Performed By: #### 5 7021-8 ####[facility] [id number] [place] [address] [place] Monocytes/100 WBC (Bld) 7.6 % Normal [facility] Comment on above: Order Comment: Speci men Type: BLOOD SPECIMENOrdering Facility: [facility] Address: [address] [place] [address] Performed By: #### 5 7021-8 ####[facility] [id number] [place] [address] [place] Neutrophils (Bld) [#/Vol] 3.24 10*3/uL Normal 1.45-7.50 [facility] Comment on above: Order Comment: Speci men Type: BLOOD SPECIMENOrdering Facility: [facility] Address: [address] [place] [address] Performed By: #### 5 7021-8 ####[facility] MILLWNCLIA [id number] [place] [address] [place] Neutrophils/100 WBC (Bld) 52.5 % Normal [facility] Comment on above: Order Comment: Speci men Type: BLOOD SPECIMENOrdering Facility: [facility] Address: [address] [place] [address] Performed By: #### 5 7021-8 ####[facility]ITALNCLIA [id number] [place] [address] [place] Nucleated RBC (Bld) [#/Vol] 10*3/uL Normal <0.01 [facility] Comment on above: Order Comment: Speci men Type: BLOOD SPECIMENOrdering Facility: [facility] Address: [address] [place] [address] Performed By: #### 5 7021-8 ####[facility]ENTERLIA [id number] [place] [address] [place] Nucleated RBC/100 WBC (Bld) [Ratio] 0.0 /100 WBC Normal [facility] Comment on above: Order Comment: Speci men Type: BLOOD SPECIMENOrdering Facility: [facility] Address: [address] [place] [address] Performed By: #### 5 7021-8 ####[facility]ITALWNCLIA [id number] [place] [address] [place] Platelet mean volume (Bld) [Entitic vol] 10.0 fL Normal 9.0-12.7 [facility] Comment on above: Order Comment: Speci men Type: BLOOD SPECIMENOrdering Facility: [facility] Address: [address] [place] [address] Performed By: #### 5 7021-8 ####[facility]PITALNCLIA [id number] [place] [address] [place] Platelets (Bld) [#/Vol] 272 10*3/uL Normal 150-400 [facility] Comment on above: Order Comment: Speci men Type: BLOOD SPECIMENOrdering Facility: [facility] Address: [address] [place] [address] Performed By: #### 5 7021-8 ####[facility] [id number] [place] [address] [place] RBC (Bld) [#/Vol] 4.03 10*6/uL Normal 3.90-5.20 [facility] Comment on above: Order Comment: Speci men Type: BLOOD SPECIMENOrdering Facility: [facility] Address: [address] [place] [address] Performed By: #### 5 7021-8 ####[facility] [id number] [place] [address] [place] WBC (Bld) [#/Vol] 6.17 10*3/uL Normal 3.70-11.00 [facility] Comment on above: Order Comment: Speci men Type: BLOOD SPECIMENOrdering Facility: [facility] Address: [address] [place] [address] Performed By: #### 5 7021-8 ####[facility] [id number] [place] [address] [place] CNOVon 08-18-2023 CNOV Normal [facility] Cancer Ag125 SerPl-aCncon Cancer Ag 125 Qn 6 [arb'U]/mL Normal <39 [facility] Comment on above: Order Comment: Speci men Type: BLOOD SPECIMENOrdering Facility: [facility] Address: [address] [place] [address] Result Comment: CA 1 25 test methodology [...] (CA 125 II) [package insert V 1.0 Burkinan]. [employer], [place], [place] (May 2015) Performed By: #### 3 016-3, LIPNF, 10760-9 ####[facility] LABCLIA [id number] [address]#### 65985-7 ####[facility] [id number] [address] [place] Comprehensive metabolic 2000 panelon 08-18-2023 Albumin [Mass/Vol] 4.9 g/dL Normal 3.9-4.9 [facility] Comment on above: Order Comment: Speci men Type: BLOOD SPECIMENOrdering Facility: [facility] Address: [address] [place] [address] Performed By: #### 3 016-3, LIPNF, 00560-3 ####[facility] LABIA [id number] [address] [place]#### 29985-0 ####[facility]ENTERLIA [id number] [address] [place] ALP [Catalytic activity/Vol] 108 U/L Normal 34-123 [facility] Comment on above: Order Comment: Speci men Type: BLOOD SPECIMENOrdering Facility: [facility] Address: [address] [place] [address] Performed By: #### 3 016-3, LIPNF, 42096-8 ####[facility] LABCLIA [id number] [address] [place]#### 30839-4 ####[facility] MILLTOWNCLIA [id number] [place] [address] [place] ALT [Catalytic activity/Vol] 17 U/L Normal 7-38 [facility] Comment on above: Order Comment: Speci men Type: BLOOD SPECIMENOrdering Facility: [facility] Address: [address] [place] [address] Performed By: #### 3 016-3, LIPNF, 81198-1 ####[facility] LABCLIA [id number] [place] [address] [place]#### 62791-1 ####[facility] MILLTOWNCLIA [id number] [place] [address] [place] Anion gap [Moles/Vol] 12 mmol/L Normal 9-18 [facility] Comment on above: Order Comment: Speci men Type: BLOOD SPECIMENOrdering Facility: [facility] Address: [address] [place] [address] Performed By: #### 3 016-3, LIPNF, 12033-7 ####[facility] LABCLIA [id number] [place] [address] [place]#### 03303-3 ####[facility] MILLTOWNCLIA [id number] [place] [address] [place] AST [Catalytic activity/Vol] 25 U/L Normal 13-35 [facility] Comment on above: Order Comment: Speci men Type: BLOOD SPECIMENOrdering Facility: [facility] Address: [address] [place] [id number] Performed By: #### 3 016-3, LIPNF, 41307-5 ####[facility] LABCLIA [id number] [place] [address] [place]#### 78429-2 ####[facility] MILLTOWNCLIA [id number] [place] [address] [place] Bilirubin [Mass/Vol] 0.4 mg/dL Normal 0.2-1.3 [facility] Comment on above: Order Comment: Speci men Type: BLOOD SPECIMENOrdering Facility: [facility] Address: [address] [place] [address] Performed By: #### 3 016-3, LIPNF, 18466-4 ####[facility] LABCLIA [id number] [place] [address] [place]#### 55175-6 ####[facility] MILLTOWNCLIA [id number] [place] [address] [place] Calcium [Mass/Vol] 9.8 mg/dL Normal 8.5-10.2 [facility] Comment on above: Order Comment: Speci men Type: BLOOD SPECIMENOrdering Facility: [facility] Address: [address] [place] [address] Performed By: #### 3 016-3, LIPNF, 82158-7 ####[facility] LABCLIA [id number] [place] [address] [place]#### 41581-0 ####[facility] MILLTOWNCLIA [id number] [place] [address] [place] Chloride [Moles/Vol] 99 mmol/L Normal 97-105 [facility] Comment on above: Order Comment: Speci men Type: BLOOD SPECIMENOrdering Facility: [facility] Address: [address] [place] [address] Performed By: #### 3 016-3, LIPNF, 82613-4 ####[facility] LABCLIA [id number] [place] [address] [place]#### 01808-2 ####[facility] MILLTOWNCLIA [id number] [place] [address] [place] CO2 [Moles/Vol] 26 mmol/L Normal 22-30 [facility] Comment on above: Order Comment: Speci men Type: BLOOD SPECIMENOrdering Facility: [facility] Address: [address] [place] [address] Performed By: #### 3 016-3, LIPNF, 05040-5 ####[facility] LABCLIA [id number] [place] [address] [place]#### 36354-4 ####[facility] MILLWNCLIA [id number] [place] [address] [place] Creatinine [Mass/Vol] 0.72 mg/dL Normal 0.58-0.96 [facility] Comment on above: Order Comment: Speci men Type: BLOOD SPECIMENOrdering Facility: [facility] Address: [address] [place] [address] Performed By: #### 3 016-3, LIPNF, 89678-1 ####[facility] LABCLIA [id number] [place] [address] [place]#### 97889-8 ####[facility]PITALWNCLIA [id number] [place] [address] [place] Creatinine and Glomerular filtration rate.predicted panel (S/P/Bld) 83 mL/min/1.73m??? Normal >=60 [facility] Comment on above: Order Comment: Speci men Type: BLOOD SPECIMENOrdering Facility: [facility] Address: [address] [place] [address] Result Comment: Marlyn mated Glomerular Filtration Rate [...] GFR. Performed By: #### 3 016-3, LIPNF, 78407-9 ####[facility] LABIA [id number] [place] [address] [place]#### 14426-4 ####[facility] [id number] [place] [address] [place] Glucose [Mass/Vol] 112 mg/dL High 74-99 [facility] Comment on above: Order Comment: Speci men Type: BLOOD SPECIMENOrdering Facility: [facility] Address: [address] [place] [address] Result Comment: The [place] Diabetes Association (ADA) provides guidance for cutoff [...] Standards of Medical Care in Diabetes 2016, [place] Diabetes Association. Diabetes Care. 2016.39(Suppl 1). Performed By: #### 3 016-3, LIPNF, 19308-1 ####[facility] LABIA [id number] [place] [address] [place]#### 64378-3 ####[facility]ENTERLIA [id number] [place] [address] [place] Potassium [Moles/Vol] 4.3 mmol/L Normal 3.7-5.1 [facility] Comment on above: Order Comment: Speci men Type: BLOOD SPECIMENOrdering Facility: [facility] Address: [address] [place] [address] Performed By: #### 3 016-3, LIPNF, 01794-6 ####[facility] LABCLIA [id number] [place] [address] [place]#### 36007-2 ####[facility] MILLTOWNCLIA [id number] [place] [address] [place] Protein [Mass/Vol] 8.7 g/dL High 6.3-8.0 [facility] Comment on above: Order Comment: Speci men Type: BLOOD SPECIMENOrdering Facility: [facility] Address: [address] [place] [address] Performed By: #### 3 016-3, LIPNF, 14439-0 ####[facility] LABCLIA [id number] [place] [address] [place]#### 76983-1 ####[facility] MILLWNCLIA [id number] [place] [address] [place] Sodium [Moles/Vol] 137 mmol/L Normal 136-144 [facility] Comment on above: Order Comment: Speci men Type: BLOOD SPECIMENOrdering Facility: [facility] Address: [address] [place] [address] Performed By: #### 3 016-3, LIPNF, 40452-8 ####[facility] LABCLIA [id number] [place] [address] [place]#### 07886-2 ####[facility] MILLTOWNCLIA [id number] [place] [address] [place] Urea nitrogen [Mass/Vol] 18 mg/dL Normal 7-21 [facility] Comment on above: Order Comment: Speci men Type: BLOOD SPECIMENOrdering Facility: [facility] Address: [address] [place] [address] Performed By: #### 3 016-3, LIPNF, 89744-2 ####[facility] LABCLIA [id number] [place] [address] [place]#### 28840-7 ####[facility]ITALNCLIA [id number] [place] [address] [place] LIPID PANEL, NONFASTINGon Cholesterol [Mass/Vol] 201 mg/dL High <200 [facility] Comment on above: Order Comment: Speci men Type: BLOOD SPECIMENOrdering Facility: [facility] Address: [address] [place] [address] Result Comment: <200 mg/dL, Desirable 200-239 mg/dL, Borderline high>239 mg/dL, High Performed By: #### 3 016-3, LIPNF, 10911-6 ####[facility] LABCLIA [id number] [place] [address] [place]#### 57226-9 ####[facility]A [id number] [place] [address] [place] HDL CHOLESTEROL, NF 81 mg/dL Normal >39 [facility] Comment on above: Order Comment: Speci men Type: BLOOD SPECIMENOrdering Facility: [facility] Address: [address] [place] [address] Result Comment: 40-5 9 mg/dL, Acceptable>59 mg/dL, High: Negative risk factor for coronary heart disease<40 mg/dL, Low: Positive risk factor for coronary heart disease Performed By: #### 3 016-3, LIPNF, 95158-4 ####[facility] LABCLIA [id number] [place] [address] [place]#### 72518-6 ####[facility]ENTERLIA [id number] [place] [address] [place] LDL CHOLESTEROL, NF 96 mg/dL Normal <100 [facility] Comment on above: Order Comment: Zay sandoval Type: BLOOD SPECIMENOrdering Facility: [facility] Address: [address] [place] [address] Result Comment: <100 mg/dL, Optimal 100-129 mg/dL, Near optimal/above optimal 130-159 mg/dL, Borderline high 160-189 mg/dL, High>189 mg/dL, Very highSecondary prevention optimal LDL Cholesterol levels are recommended to be < 70 mg/dL Performed By: #### 3 016-3, LIPNF, 85937-4 ####[facility] LABCLIA [id number] [place] [address] [place]#### 02406-8 ####[facility]ITALNCLIA [id number] [place] [address] [place] LDL/HDL RATIO, NF 1.19 mg/dL Normal <2.54 [facility] Comment on above: Order Comment: Zay sandoval Type: BLOOD SPECIMENOrdering Facility: [facility] Address: [address] [place] [address] Result Comment: Refe rence:1. National Cholesterol Education Program ATP III Guideline At-A-Glance Quick Desk Reference: National Heart, Lung, and Blood [place]. National Institutes of Health. 2001: NIH Publication No. 01-3305.2. An International Atherosclerosis Society position paper: global recommendations for the management of dyslipidemia: executive summary, Atherosclerosis. 2014: 232(2):410-413. Performed By: #### 3 016-3, LIPNF, 58387-5 ####[facility] LABCLIA [id number] [place] [address] [place]#### 17566-1 ####[facility]ITALNCLIA [id number] [place] [address] [place] NON HDL CHOL, NF 120 mg/dL Normal <130 [facility] Comment on above: Order Comment: Zay men Type: BLOOD SPECIMENOrdering Facility: [facility] Address: [address] [place] [address] Result Comment: <130 mg/dL, Optimal 130-159 mg/dL, Near optimal/above optimal 160-189 mg/dL, Borderline high 190-219 mg/dL, High>219 mg/dL, Very highSecondary prevention optimal non HDL Cholesterol levels are recommended to be <100 mg/dL Performed By: #### 3 016-3, LIPNF, 31446-7 ####[facility] LABCLIA [id number] [address] [place]#### 06290-7 ####[facility] [id number] [place] [address] [place] T CHOL/HDL RATIO NF 2.48 mg/dL Normal <5.10 [facility] Comment on above: Order Comment: Speci men Type: BLOOD SPECIMENOrdering Facility: [facility] Address: [address] [place] [address] Performed By: #### 3 016-3, LIPNF, 50338-6 ####[facility] LABCLIA [id number] [address] [place]#### 47962-4 ####[facility] CENTERLIA [id number] [address] [place] TRIGLYCERIDES, NF 118 mg/dL Normal <150 [facility] Comment on above: Order Comment: Speci men Type: BLOOD SPECIMENOrdering Facility: [facility] Address: [address] [place] [address] Result Comment: <150 mg/dL, Normal 150-199 mg/dL, Borderline high 200-499 mg/dL, High>499 mg/dL, Very high Performed By: #### 3 016-3, LIPNF, 64034-5 ####[facility] LABCLIA [id number] [place] [address] [place]#### 45247-1 ####[facility]ITALNCLIA [id number] [place] [address] [place] VLDL CHOLESTEROL, NF 24 mg/dL Normal <30 [facility] Comment on above: Order Comment: Speci men Type: BLOOD SPECIMENOrdering Facility: [facility] Address: [address] [place] [address] Performed By: #### 3 016-3, LIPNF, 91328-5 ####[facility] LABCLIA [id number] [place] [address] [place]#### 17025-9 ####[facility]ITALNCLIA [id number] [place] [address] [place] Magnesium SerPl-mCncon 08-18 Magnesium [Mass/Vol] 2.2 mg/dL Normal 1.7-2.3 [facility] Comment on above: Order Comment: Speci men Type: BLOOD SPECIMENOrdering Facility: [facility] Address: [address] [place] [address] Performed By: #### 1 9123-9 ####[facility] [id number] [place] [address] [place] PAIN PANEL, UR QUANTon 08-18 3-Tkbvhozvsm-8,5-Dimet hyl-3,3-Diphenylpyrrol idine (EDDP) Confirm (U) [Mass/Vol] <6 Normal <6 [facility] Comment on above: Order Comment: Speci men Type: URINE SPECIMENOrdering Facility: [facility] Address: [address] [place] [address] Result Comment: EDDP is a metabolite of methadone. Performed By: #### L [id number] ####[facility] LABCLIA [id number] [place] [address] [place] 6-Monoacetylmorphine (6-SUNNI) (U) [Mass/Vol] <5 Normal <5 [facility] Comment on above: Order Comment: Speci men Type: URINE SPECIMENOrdering Facility: [facility] Address: [address] [place] [address] Result Comment: 6-MA M (6-monoacetylmorphine, also known as 6-acetylmorphine) is a unique metabolite of heroin. Presence of 6-SUNNI indicates use of heroin. 6-SUNNI is further metabolized to morphine and absence of 6-SUNNI does not rule out the use of heroin. Performed By: #### L [id number] ####[facility] LABIA [id number] [place] [address] [place] Amphetamine Confirm (U) [Mass/Vol] <5 Normal <5 [facility] Comment on above: Order Comment: Speci men Type: URINE SPECIMENOrdering Facility: [facility] Address: [address] [place] [address] Performed By: #### L [id number] ####[facility] LABIA [id number] [place] [address] [place] Benzoylecgonine Confirm (U) [Mass/Vol] <24 Normal <24 [facility] Comment on above: Order Comment: Speci men Type: URINE SPECIMENOrdering Facility: [facility] Address: [address] [place] [address] Result Comment: Kenneth oylecgonine is a metabolite of cocaine. Performed By: #### L [id number] ####[facility] LABIA [id number] [place] [address] [place] Buprenorphine (U) [Mass/Vol] <20 Normal <20 [facility] Comment on above: Order Comment: Speci men Type: URINE SPECIMENOrdering Facility: [facility] Address: [address] [place] [address] Performed By: #### L [id number] ####[facility] LABIA [id number] [id number] [address] [place] Cannabinoids Confirm (U) [Mass/Vol] <16 Normal <16 [facility] Comment on above: Order Comment: Speci men Type: URINE SPECIMENOrdering Facility: [facility] Address: [address] [place] [address] Result Comment: Tetr ahydrocannabinol carboxylic acid (THCA) is a metabolite of byyre-5-jiscqrofvzjpynwqvdcb which is the main active component of marijuana. Performed By: #### L [id number] ####[facility] [id number] [place] [address] [place] Codeine Confirm (U) [Mass/Vol] <11 Normal <11 [facility] Comment on above: Order Comment: Speci men Type: URINE SPECIMENOrdering Facility: [facility] Address: [address] [place] [address] Performed By: #### L [id number] ####[facility] [id number] [place] [address] [place] Dihydrocodeine Confirm (U) [Mass/Vol] <5 Normal <5 [facility] Comment on above: Order Comment: Speci men Type: URINE SPECIMENOrdering Facility: [facility] Address: [address] [place] [address] Performed By: #### L [id number] ####[facility] [id number] [place] [address] [place] [email or web address] Confirm (U) [Mass/Vol] <6 Normal <6 [facility] Comment on above: Order Comment: Speci men Type: URINE SPECIMENOrdering Facility: [facility] Address: [address] [place] [address] Performed By: #### L [id number] ####[facility] [id number] [place] [address] [place] HYDROcodone Confirm (U) [Mass/Vol] <8 Normal <8 [facility] Comment on above: Order Comment: Speci men Type: URINE SPECIMENOrdering Facility: [facility] Address: [address] [place] [address] Result Comment: Hydr ocodone is a metabolite of dihydrocodeine. Performed By: #### L [id number] ####[facility] [id number] [place] [address] [place] HYDROmorphone Confirm (U) [Mass/Vol] <5 Normal <5 [facility] Comment on above: Order Comment: Speci men Type: URINE SPECIMENOrdering Facility: [facility] Address: [address] [place] [address] Result Comment: Hydr omorphone is a metabolite of hydrocodone. Performed By: #### L [id number] ####[facility] [id number] [place] [address] [place] Methadone Confirm (U) [Mass/Vol] <16 Normal <16 [facility] Comment on above: Order Comment: Speci men Type: URINE SPECIMENOrdering Facility: [facility] Address: [address] [place] [address] Performed By: #### L [id number] ####[facility] [id number] [place] [address] [place] Methamphetamine Confirm (U) [Mass/Vol] <8 Normal <8 [facility] Comment on above: Order Comment: Speci men Type: URINE SPECIMENOrdering Facility: [facility] Address: [address] [place] [address] Performed By: #### L [id number] ####[facility] [id number] [place] [address] [place] Morphine Confirm (U) [Mass/Vol] <10 Normal <10 [facility] Comment on above: Order Comment: Speci men Type: URINE SPECIMENOrdering Facility: [facility] Address: [address] [place] [address] Result Comment: Morp shahida is a metabolite of codeine and heroin. Performed By: #### L [id number] ####[facility] [id number] [place] [address] [place] Norbuprenorphine (U) [Mass/Vol] <20 Normal <20 [facility] Comment on above: Order Comment: Speci men Type: URINE SPECIMENOrdering Facility: [facility] Address: [address] [place] [address] Result Comment: Norb uprenorphine is the primary active metabolite of buprenorphine. Performed By: #### L [id number] ####[facility] [id number] [place] [address] [place] Norfentanyl Confirm (U) [Mass/Vol] <6 Normal <6 [facility] Comment on above: Order Comment: Speci men Type: URINE SPECIMENOrdering Facility: [facility] Address: [address] [place] [address] Result Comment: Norf entanyl is a metabolite of fentanyl. Performed By: #### L [id number] ####[facility] [id number] [place] [address] [place] Nortramadol (U) [Mass/Vol] >5000 High <20 [facility] Comment on above: Order Comment: Speci men Type: URINE SPECIMENOrdering Facility: [facility] Address: [address] [place] [address] Result Comment: O-De smethyltramadol is a metabolite of tramadol and its presence indicates use of a tramadol containing drug (Ultram). Performed By: #### L [id number] ####[facility] [id number] [place] [address] [place] NOTE,UR PAIN ROMAN Normal [facility] Comment on above: Order Comment: Speci men Type: URINE SPECIMENOrdering Facility: [facility] Address: [address] [place] [address] Result Comment: This test is for medical use only.This test was developed and its performance characteristics determined by [facility] Pathology [facility] Laboratory Medicine [place] ([facility]). It has not been cleared or approved by the FDA. RT-PLMI is regulated under CLIA as qualified to perform high-complexity testing. This test is used for clinical purposes. It should not be regarded as investigational or for research. Performed By: #### L [id number] ####[facility] [id number] [address] [place] oxyCODONE Confirm (U) [Mass/Vol] <10 Normal <10 [facility] Comment on above: Order Comment: Speci men Type: URINE SPECIMENOrdering Facility: [facility] Address: [address] [place] [address] Performed By: #### L [id number] ####[facility] [id number] [address] [place] [facility] oxyMORphone Confirm (U) [Mass/Vol] <5 Normal <5 [facility] Comment on above: Order Comment: Speci men Type: URINE SPECIMENOrdering Facility: [facility] Address: [address] [place] [address] Result Comment: Oxym orphone is a metabolite of oxycodone. Performed By: #### L [id number] ####[facility] [id number] [address] [place] [facility] traMADol Confirm (U) [Mass/Vol] >5208 High <25 [facility] Comment on above: Order Comment: Speci men Type: URINE SPECIMENOrdering Facility: [facility] Address: [address] [place] [address] Result Comment: Pres ence of tramadol indicates use of a tramadol containing drug (Ultram). Tramadol is metabolized to O-Desmethyltramadol. Performed By: #### L [id number] ####[facility] [id number] [place] [id number] [place] SPECIMEN VALIDITY, URINEon 0 08-18-2023 CHROMATE,URINE <10 Normal <50 [facility] Comment on above: Order Comment: Speci men Type: URINE SPECIMENOrdering Facility: [facility] Address: [address] [place] [address] Performed By: #### L [id number] ####[facility] LABCLIA [id number] [place] [address] [place] CREATININE,URINE 124.4 mg/dL Normal 20.0-300.0 [facility] Comment on above: Order Comment: Speci men Type: URINE SPECIMENOrdering Facility: [facility] Address: [address] [place] [address] Performed By: #### L [id number] ####[facility] LABCLIA [id number] [place] [address] [place] NITRITES,URINE 52 mg/L Normal <500 [facility] Comment on above: Order Comment: Speci men Type: URINE SPECIMENOrdering Facility: [facility] Address: [address] [place] [address] Performed By: #### L [id number] ####[facility] LABCLIA [id number] [place] [address] [place] OXIDANTS,URINE <38 Normal <200 [facility] Comment on above: Order Comment: Speci men Type: URINE SPECIMENOrdering Facility: [facility] Address: [address] [place] [address] Performed By: #### L [id number] ####[facility] LABCLIA [id number] [place] [address] [place] pH (U) 5.8 [pH] Normal 4.5-8.0 [facility] Comment on above: Order Comment: Speci men Type: URINE SPECIMENOrdering Facility: [facility] Address: [address] [place] [address] Performed By: #### L [id number] ####[facility] LABCLIA [id number] [place] [address] [place] SPEC GRAVITY,UR 1.017 Normal 1.003-1.03 5 [facility] Comment on above: Order Comment: Speci men Type: URINE SPECIMENOrdering Facility: [facility] Address: [address] [place] [address] Performed By: #### L [id number] ####[facility] LABCLIA [id number] [place] [address] [place] SPECIMEN VALIDITY QUALITY Specimen quality results within acceptable limits Normal [facility] Comment on above: Order Comment: Speci men Type: URINE SPECIMENOrdering Facility: [facility] Address: [address] [place] [address] Performed By: #### L [id number] ####[facility] LABCLIA [id number] [place] [address] [place] TOX SCREEN ROUT URon 024 Amphetamines Confirm (U) [Mass/Vol] Negative Normal Negative [facility] Comment on above: Order Comment: Speci men Type: URINE SPECIMENOrdering Facility: [facility] Address: [address] [place] [address] Result Comment: Cuto ff threshold at 1000 ng/mL. Performed By: #### U TOX2 ####[facility] LABCLIA [id number] [place] [address] [place] BARBITURATES, URINE Negative Normal Negative [facility] Comment on above: Order Comment: Speci men Type: URINE SPECIMENOrdering Facility: [facility] Address: [address] [place] [address] Result Comment: Cuto ff threshold at 200 ng/mL. Performed By: #### U TOX2 ####[facility] LABCLIA [id number] [place] [address] [place] BENZODIAZEPINES, UR Negative Normal Negative [facility] Comment on above: Order Comment: Speci men Type: URINE SPECIMENOrdering Facility: [facility] Address: [address] [place] [address] Result Comment: Cuto ff threshold at 200 ng/mL. Performed By: #### U TOX2 ####[facility] LABIA [id number] [place] [address] [place] Cannabinoids Screen Ql (U) Negative Normal Negative [facility] Comment on above: Order Comment: Speci men Type: URINE SPECIMENOrdering Facility: [facility] Address: [address] [place] [address] Result Comment: Cuto ff threshold at 50 ng/mL. Performed By: #### U TOX2 ####[facility] LABIA [id number] [place] [address] [place] Cocaine Ql (U) Negative Normal Negative [facility] Comment on above: Order Comment: Speci men Type: URINE SPECIMENOrdering Facility: [facility] Address: [address] [place] [address] Result Comment: Cuto ff threshold at 300 ng/mL. Performed By: #### U TOX2 ####[facility] LABIA [id number] [place] [address] [place] Ethanol (U) [Mass/Vol] <11 Normal <11 [facility] Comment on above: Order Comment: Speci men Type: URINE SPECIMENOrdering Facility: [facility] Address: [address] [place] [address] Performed By: #### U TOX2 ####[facility] LABIA [id number] [place] [address] [place] Opiates Screen Ql (U) Negative Normal Negative [facility] Comment on above: Order Comment: Speci men Type: URINE SPECIMENOrdering Facility: [facility] Address: [address] [place] [address] Result Comment: Cuto ff threshold at 300 ng/mL. Performed By: #### U TOX2 ####[facility] LABIA [id number] [place] [id number] [place] oxyCODONE cutoff Screen (U) [Mass/Vol] Negative Normal Negative [facility] Comment on above: Order Comment: Speci men Type: URINE SPECIMENOrdering Facility: [facility] Address: [address] [place] [address] Result Comment: Cuto ff threshold at 100 ng/mL. Performed By: #### U TOX2 ####[facility] LABIA [id number] [address] Phencyclidine Ql (U) Negative Normal Negative [facility] Comment on above: Order Comment: Speci men Type: URINE SPECIMENOrdering Facility: [facility] Address: [address] [place] [address] Result Comment: Cuto ff threshold at 25 ng/mL. Performed By: #### U TOX2 ####[facility] [id number] [place] [address] [place] TSH SerPl-aCncon 08-18-2023 TSH Qn 3.510 m[IU]/L Normal 0.270-4.20 0 [facility] Comment on above: Order Comment: Speci men Type: BLOOD SPECIMENOrdering Facility: [facility] Address: [address] [place] [address] Performed By: #### 3 016-3, LIPNF, 80808-7 ####[facility] [id number] [place] [address] [place]#### 12561-9 ####[facility] [id number] [place] [address] [place] CBC W Auto Differential pane l (Bld)on 07-26-2023 Basophils (Bld) [#/Vol] 0.09 10*3/uL Normal <0.11 [facility] Comment on above: Order Comment: Speci men Type: BLOOD SPECIMENOrdering Facility: [facility] Address: [address] [place] [address] Performed By: #### 5 7021-8 ####[facility] MILLWNCLIA [id number] [place] [address] [place] Basophils/100 WBC (Bld) 2.0 % Normal [facility] Comment on above: Order Comment: Speci men Type: BLOOD SPECIMENOrdering Facility: [facility] Address: [address] [place] [address] Performed By: #### 5 7021-8 ####[facility] [id number] [place] [address] [place] Differential cell count method Nom (Bld) Auto Normal [facility] Comment on above: Order Comment: Speci men Type: BLOOD SPECIMENOrdering Facility: [facility] Address: [address] [place] [address] Performed By: #### 5 7021-8 ####[facility]ENTERLIA [id number] [place] [address] [place] Eosinophils (Bld) [#/Vol] 0.04 10*3/uL Normal <0.46 [facility] Comment on above: Order Comment: Speci men Type: BLOOD SPECIMENOrdering Facility: [facility] Address: [address] [place] [address] Performed By: #### 5 7021-8 ####[facility]ENTERL[facility] [id number] [place] [address] [place] Eosinophils/100 WBC (Bld) 0.9 % Normal [facility] Comment on above: Order Comment: Speci men Type: BLOOD SPECIMENOrdering Facility: [facility] Address: [address] [place] [address] Performed By: #### 5 7021-8 ####[facility]ITALNCLIA [id number] [place] [address] [place] Erythrocyte distribution width (RBC) [Ratio] 16.9 % High 11.5-15.0 [facility] Comment on above: Order Comment: Speci men Type: BLOOD SPECIMENOrdering Facility: [facility] Address: [address] [place] [address] Performed By: #### 5 7021-8 ####[facility] [id number] [place] [address] [place] Hematocrit (Bld) [Volume fraction] 37.4 % Normal 36.0-46.0 [facility] Comment on above: Order Comment: Speci men Type: BLOOD SPECIMENOrdering Facility: [facility] Address: [address] [place] [address] Performed By: #### 5 7021-8 ####[facility] [id number] [place] [address] [place] Hemoglobin (Bld) [Mass/Vol] 12.0 g/dL Normal 11.5-15.5 [facility] Comment on above: Order Comment: Speci men Type: BLOOD SPECIMENOrdering Facility: [facility] Address: [address] [place] [address] Performed By: #### 5 7021-8 ####[facility] [id number] [place] [address] [place] Immature granulocytes (Bld) [#/Vol] 10*3/uL Normal <0.10 [facility] Comment on above: Order Comment: Speci men Type: BLOOD SPECIMENOrdering Facility: [facility] Address: [address] [place] [address] Performed By: #### 5 7021-8 ####[facility] [id number] [place] [address] [place] Immature granulocytes/100 WBC (Bld) 0.0 % Normal [facility] Comment on above: Order Comment: Speci men Type: BLOOD SPECIMENOrdering Facility: [facility] Address: [address] [place] [address] Performed By: #### 5 7021-8 ####[facility] MILLTOWNCLIA [id number] [place] [address] [place] Lymphocytes (Bld) [#/Vol] 2.35 10*3/uL Normal 1.00-4.00 [facility] Comment on above: Order Comment: Speci men Type: BLOOD SPECIMENOrdering Facility: [facility] Address: [address] [place] [address] Performed By: #### 5 7021-8 ####[facility]ITALWNCLIA [id number] [place] [address] [place] Lymphocytes/100 WBC (Bld) 51.8 % Normal [facility] Comment on above: Order Comment: Speci men Type: BLOOD SPECIMENOrdering Facility: [facility] Address: [address] [place] [address] Performed By: #### 5 7021-8 ####[facility]ITALWNCLIA [id number] [place] [address] [place] MCH (RBC) [Entitic mass] 32.1 pg Normal 26.0-34.0 [facility] Comment on above: Order Comment: Speci men Type: BLOOD SPECIMENOrdering Facility: [facility] Address: [address] [place] [address] Performed By: #### 5 7021-8 ####[facility] MILLTOWNCLIA [id number] [place] [address] [place] MCHC (RBC) [Mass/Vol] 32.1 g/dL Normal 30.5-36.0 [facility] Comment on above: Order Comment: Speci men Type: BLOOD SPECIMENOrdering Facility: [facility] Address: [address] [place] [address] Performed By: #### 5 7021-8 ####[facility] [id number] [place] [address] [place] MCV (RBC) [Entitic vol] 100.0 fL Normal 80.0-100.0 [facility] Comment on above: Order Comment: Speci men Type: BLOOD SPECIMENOrdering Facility: [facility] Address: [address] [place] [address] Performed By: #### 5 7021-8 ####[facility] [id number] [place] [address] [place] Monocytes (Bld) [#/Vol] 0.50 10*3/uL Normal <0.87 [facility] Comment on above: Order Comment: Speci men Type: BLOOD SPECIMENOrdering Facility: [facility] Address: [address] [place] [address] Performed By: #### 5 7021-8 ####[facility] [id number] [place] [address] [place] Monocytes/100 WBC (Bld) 11.0 % Normal [facility] Comment on above: Order Comment: Speci men Type: BLOOD SPECIMENOrdering Facility: [facility] Address: [address] [place] [address] Performed By: #### 5 7021-8 ####[facility] [id number] [place] [address] [place] Neutrophils (Bld) [#/Vol] 1.56 10*3/uL Normal 1.45-7.50 [facility] Comment on above: Order Comment: Speci men Type: BLOOD SPECIMENOrdering Facility: [facility] Address: [address] [place] [address] Performed By: #### 5 7021-8 ####[facility]ENTERLIA [id number] [place] [address] [place] Neutrophils/100 WBC (Bld) 34.3 % Normal [facility] Comment on above: Order Comment: Speci men Type: BLOOD SPECIMENOrdering Facility: [facility] Address: [address] [place] [address] Performed By: #### 5 7021-8 ####[facility] MGROMAIN [id number] [place] [address] [place] Nucleated RBC (Bld) [#/Vol] 10*3/uL Normal <0.01 [facility] Comment on above: Order Comment: Speci men Type: BLOOD SPECIMENOrdering Facility: [facility] Address: [address] [place] [address] Performed By: #### 5 7021-8 ####[facility]ITALANYICENTR[facility] [id number] [place] [address] [place] Nucleated RBC/100 WBC (Bld) [Ratio] 0.0 /100 WBC Normal [facility] Comment on above: Order Comment: Speci men Type: BLOOD SPECIMENOrdering Facility: [facility] Address: [address] [place] [address] Performed By: #### 5 7021-8 ####[facility] [id number] [place] [address] [place] Platelet mean volume (Bld) [Entitic vol] 9.7 fL Normal 9.0-12.7 [facility] Comment on above: Order Comment: Speci men Type: BLOOD SPECIMENOrdering Facility: [facility] Address: [address] [place] [address] Performed By: #### 5 7021-8 ####[facility]ENTERLIA [id number] [place] [address] [place] Platelets (Bld) [#/Vol] 270 10*3/uL Normal 150-400 [facility] Comment on above: Order Comment: Speci men Type: BLOOD SPECIMENOrdering Facility: [facility] Address: [address] [place] [address] Performed By: #### 5 7021-8 ####[facility]ITALNCLIA [id number] [place] [address] [place] RBC (Bld) [#/Vol] 3.74 10*6/uL Low 3.90-5.20 [facility] Comment on above: Order Comment: Speci men Type: BLOOD SPECIMENOrdering Facility: [facility] Address: [address] [place] [address] Performed By: #### 5 7021-8 ####[facility]ITALNCLIA [id number] [place] [address] [place] WBC (Bld) [#/Vol] 4.54 10*3/uL Normal 3.70-11.00 [facility] Comment on above: Order Comment: Speci men Type: BLOOD SPECIMENOrdering Facility: [facility] Address: [address] [place] [address] Performed By: #### 5 7021-8 ####[facility]ITALNCLIA [id number] [place] [address] [place] CNOVSPon 07-26-2023 CNOVSP Normal [facility] Cancer Ag125 SerPl-aCncon Cancer Ag 125 Qn 6 [arb'U]/mL Normal <39 [facility] Comment on above: Order Comment: Speci men Type: BLOOD SPECIMENOrdering Facility: [facility] Address: [address] [place] [address] Result Comment: CA 1 25 test methodology [...] (CA 125 II) [package insert V 1.0 Burkinan]. [employer] [facility], [place], [place] (May 2015) Performed By: #### 1 0334-1 ####[facility] LABCLIA [id number] [facility] [id number] [address] [place] Comprehensive metabolic 2000 panelon 07-26-2023 Albumin [Mass/Vol] 4.3 g/dL Normal 3.9-4.9 [facility] Comment on above: Order Comment: Speci men Type: BLOOD SPECIMENOrdering Facility: [facility] Address: [address] [place] [address] Performed By: #### 2 4323-8, ####[facility] PAUL[facility] MILLTOWNCLIA [id number] [place] [address] [place] ALP [Catalytic activity/Vol] 99 U/L Normal 34-123 [facility] Comment on above: Order Comment: Speci men Type: BLOOD SPECIMENOrdering Facility: [facility] Address: [address] [place] [address] Performed By: #### 2 4328, ####[facility] MILLTOWNCLIA [id number] [place] [address] [place] ALT [Catalytic activity/Vol] 19 U/L Normal 7-38 [facility] Comment on above: Order Comment: Speci men Type: BLOOD SPECIMENOrdering Facility: [facility] Address: [address] [place] [address] Performed By: #### 2 4328, ####[facility] MILLTOWNCLIA [id number] [place] [address] [place] Anion gap [Moles/Vol] 12 mmol/L Normal 9-18 [facility] Comment on above: Order Comment: Speci men Type: BLOOD SPECIMENOrdering Facility: [facility] Address: [address] [place] [address] Performed By: #### 2 4323-8, ####[facility] PA[facility] MILLTOWNCLIA [id number] [place] [address] [place] AST [Catalytic activity/Vol] 26 U/L Normal 13-35 [facility] Comment on above: Order Comment: Speci men Type: BLOOD SPECIMENOrdering Facility: [facility] Address: [address] [place] [address] Performed By: #### 2 4323-8, ####[facility]ERTOWNCLIA [id number] [place] [address] [place] Bilirubin [Mass/Vol] 0.3 mg/dL Normal 0.2-1.3 [facility] Comment on above: Order Comment: Speci men Type: BLOOD SPECIMENOrdering Facility: [facility] Address: [address] [place] [address] Performed By: #### 2 4323-8, ####[facility] HOSPITALANYILIA [id number] [place] [address] [place] Calcium [Mass/Vol] 10.2 mg/dL Normal 8.5-10.2 [facility] Comment on above: Order Comment: Speci men Type: BLOOD SPECIMENOrdering Facility: [facility] Address: [address] [place] [address] Performed By: #### 2 4323-8, ####[facility] HOSPITALWNCLIA [id number] [place] [address] [place] Chloride [Moles/Vol] 103 mmol/L Normal 97-105 [facility] Comment on above: Order Comment: Speci men Type: BLOOD SPECIMENOrdering Facility: [facility] Address: [address] [place] [address] Performed By: #### 2 4323-8, ####[facility] MILLTOWNCLIA [id number] [place] [address] [place] CO2 [Moles/Vol] 22 mmol/L Normal 22-30 [facility] Comment on above: Order Comment: Speci men Type: BLOOD SPECIMENOrdering Facility: [facility] Address: [address] [place] [address] Performed By: #### 2 4323-8, ####[facility] [id number] [place] [address] [place] Creatinine [Mass/Vol] 0.61 mg/dL Normal 0.58-0.96 [facility] Comment on above: Order Comment: Speci men Type: BLOOD SPECIMENOrdering Facility: [facility] Address: [address] [place] [address] Performed By: #### 2 4323-8, ####[facility]ITALNCCENTRAL [facility] [id number] [place] [address] [place] Creatinine and Glomerular filtration rate.predicted panel (S/P/Bld) 88 mL/min/1.73m??? Normal >=60 [facility] Comment on above: Order Comment: Speci men Type: BLOOD SPECIMENOrdering Facility: [facility] Address: [address] [place] [address] Result Comment: Marlyn mated Glomerular Filtration Rate [...] actual GFR. Performed By: #### 2 4323-8, ####[facility] [id number] [place] [address] [place] Glucose [Mass/Vol] 102 mg/dL High 74-99 [facility] Comment on above: Order Comment: Speci men Type: BLOOD SPECIMENOrdering Facility: [facility] Address: [address] [place] [address] Result Comment: The [place] Diabetes Association (ADA) provides guidance for cutoff [...] Standards of Medical Care in Diabetes 2016, [place] [employer]. Diabetes Care. 2016.39(Suppl 1). Performed By: #### 2 4323-8, 51185-9 ####[facility] [id number] [place] [address] [place] Potassium [Moles/Vol] 4.5 mmol/L Normal 3.7-5.1 [facility] Comment on above: Order Comment: Speci men Type: BLOOD SPECIMENOrdering Facility: [facility] Address: [address] [place] [address] Performed By: #### 2 4323-8, 96243-4 ####[facility] [id number] [place] [address] [place] Protein [Mass/Vol] 7.7 g/dL Normal 6.3-8.0 [facility] Comment on above: Order Comment: Speci men Type: BLOOD SPECIMENOrdering Facility: [facility] Address: [address] [id number] Performed By: #### 2 4323-8, ####[facility] [id number] [place] [address] [place] Sodium [Moles/Vol] 137 mmol/L Normal 136-144 [facility] Comment on above: Order Comment: Speci men Type: BLOOD SPECIMENOrdering Facility: [facility] Address: [address] [id number] Performed By: #### 2 4323-8, 34960-5 ####[facility] MGWANYILIA [id number] [place] [address] [place] Urea nitrogen [Mass/Vol] 26 mg/dL High 7-21 [facility] Comment on above: Order Comment: Speci men Type: BLOOD SPECIMENOrdering Facility: [facility] Address: [address] [place] [address] Performed By: #### 2 4323-8, 99167-4 ####[facility] MGEVANSVILLEANNIA [id number] [place] [address] [place] Magnesium [facility]26 Magnesium [Mass/Vol] 2.1 mg/dL Normal 1.7-2.3 [facility] Comment on above: Order Comment: Speci men Type: BLOOD SPECIMENOrdering Facility: [facility] Address: [address] [place] [address] Performed By: #### 2 4323-8, ####[facility] MGEVANSVILLEANNIA [id number] [place] [address] [place] CNPNon 07-16-2023 CNPN Normal [facility] Basic metabolic 2000 panelon 07-14-2023 Anion gap [Moles/Vol] 11 mmol/L Normal 04-26 [facility] Comment on above: Order Comment: Speci men Type: BLOOD SPECIMENOrdering Facility: [facility] Address: [address] [place] [address] Performed By: #### 2 4321-2 ####[facility] MGBLOOMINGTON HOSPITAL OF ORANGE COUNTYLIA [id number] [place] [address] [place] Calcium [Mass/Vol] 9.8 mg/dL Normal 8.5-10.2 [facility] Comment on above: Order Comment: Speci men Type: BLOOD SPECIMENOrdering Facility: [facility] Address: [address] [place] [address] Performed By: #### 2 4321-2 ####[facility] MILLWNCLIA [id number] [place] [address] [place] Chloride [Moles/Vol] 103 mmol/L Normal 97-105 [facility] Comment on above: Order Comment: Speci men Type: BLOOD SPECIMENOrdering Facility: [facility] Address: [address] [place] [address] Performed By: #### 2 4321-2 ####[facility] CENTERLIA [id number] [place] [address] [place] CO2 [Moles/Vol] 26 mmol/L Normal 22-30 [facility] Comment on above: Order Comment: Speci men Type: BLOOD SPECIMENOrdering Facility: [facility] Address: [address] [place] [address] Performed By: #### 2 4321-2 ####[facility] MED[facility] CENTERLIA [id number] [place] [address] [place] Creatinine [Mass/Vol] 0.63 mg/dL Normal 0.58-0.96 [facility] Comment on above: Order Comment: Speci men Type: BLOOD SPECIMENOrdering Facility: [facility] Address: [address] [place] [address] Performed By: #### 2 4321-2 ####[facility] CENTERLIA [id number] [place] [address] [place] [facility] [employer] [place] Creatinine and Glomerular filtration rate.predicted panel (S/P/Bld) 88 mL/min/1.73m??? Normal >=60 [facility] Comment on above: Order Comment: Speci men Type: BLOOD SPECIMENOrdering Facility: [facility] Address: [address] [place] [address] Result Comment: Marlyn mated Glomerular Filtration Rate [...] actual GFR. Performed By: #### 2 4321-2 ####[facility] MED[facility] CENTERLIA [id number] [place] [address] [place] Glucose [Mass/Vol] 104 mg/dL High 74-99 [facility] Comment on above: Order Comment: Zay sandoval Type: BLOOD SPECIMENOrdering Facility: [facility] Address: [address] [place] [address] Result Comment: The [place] Diabetes Association (ADA) provides guidance for cutoff [...] Standards of Medical Care in Diabetes 2016, [place] Diabetes Association. Diabetes Care. 2016.39(Suppl 1). Performed By: #### 2 4321-2 ####[facility] INSTITUTEA [id number] [place] [address] [place] Potassium [Moles/Vol] 4.4 mmol/L Normal 3.7-5.1 [facility] Comment on above: Order Comment: Zay sandoval Type: BLOOD SPECIMENOrdering Facility: [facility] Address: [address] [id number] Performed By: #### 2 4321-2 ####[facility] CENTERLI [id number] [place] [address] [place] Sodium [Moles/Vol] 140 mmol/L Normal 136-144 [facility] Comment on above: Order Comment: Speci men Type: BLOOD SPECIMENOrdering Facility: [facility] Address: [place] [address] Performed By: #### 2 4321-2 ####[facility]PITALNCCENTRAL [facility] [id number] [place] [address] [place] Urea nitrogen [Mass/Vol] 20 mg/dL Normal 7-21 [facility] Comment on above: Order Comment: Speci men Type: BLOOD SPECIMENOrdering Facility: [facility] Address: [address] [place] [address] Performed By: #### 2 4321-2 ####[facility]PITALNCCENTRAL VALLEY [facility] [id number] [place] [address] [place] CBC W Auto Differential pane l (Bld)on 07-14-2023 Basophils (Bld) [#/Vol] 10*3/uL Normal <0.11 [facility] Comment on above: Order Comment: Speci men Type: BLOOD SPECIMENOrdering Facility: [facility] Address: [address] [place] [address] Performed By: #### 5 7021-8 ####[facility] [id number] [place] [address] [place] Basophils/100 WBC (Bld) 0.3 % Normal [facility] Comment on above: Order Comment: Speci men Type: BLOOD SPECIMENOrdering Facility: [facility] Address: [address] [place] [address] Performed By: #### 5 7021-8 ####[facility] [id number] [place] [address] [place] Differential cell count method Nom (Bld) Auto Normal [facility] Comment on above: Order Comment: Speci men Type: BLOOD SPECIMENOrdering Facility: [facility] Address: [address] [place] [address] Performed By: #### 5 7021-8 ####[facility] HOSPITALNCLIA [id number] [place] [address] [place] Eosinophils (Bld) [#/Vol] 0.03 10*3/uL Normal <0.46 [facility] Comment on above: Order Comment: Speci men Type: BLOOD SPECIMENOrdering Facility: [facility] Address: [address] [place] [address] Performed By: #### 5 7021-8 ####[facility] CENTERLIA [id number] [place] [address] [place] Eosinophils/100 WBC (Bld) 1.0 % Normal [facility] Comment on above: Order Comment: Speci men Type: BLOOD SPECIMENOrdering Facility: [facility] Address: [address] [place] [address] Performed By: #### 5 7021-8 ####[facility] RES[facility]ARCH INSTITUTEA [id number] [place] [address] [place] Erythrocyte distribution width (RBC) [Ratio] 16.1 % High 11.5-15.0 [facility] Comment on above: Order Comment: Speci men Type: BLOOD SPECIMENOrdering Facility: [facility] Address: [address] [place] [address] Performed By: #### 5 7021-8 ####[facility] HOSPITALWNCLIA [id number] [place] [address] [place] Hematocrit (Bld) [Volume fraction] 35.8 % Low 36.0-46.0 [facility] Comment on above: Order Comment: Speci men Type: BLOOD SPECIMENOrdering Facility: [facility] Address: [address] [place] [address] Performed By: #### 5 7021-8 ####[facility] CENTERLIA [id number] [place] [address] [place] Hemoglobin (Bld) [Mass/Vol] 11.6 g/dL Normal 11.5-15.5 [facility] Comment on above: Order Comment: Speci men Type: BLOOD SPECIMENOrdering Facility: [facility] Address: [address] [place] [address] Performed By: #### 5 7021-8 ####[facility] CENTERLIA [id number] [place] [address] [place] Immature granulocytes (Bld) [#/Vol] 10*3/uL Normal <0.10 [facility] Comment on above: Order Comment: Speci men Type: BLOOD SPECIMENOrdering Facility: [facility] Address: [address] [place] [address] Performed By: #### 5 7021-8 ####[facility] HOSPITALNCA [id number] [place] [address] [place] Immature granulocytes/100 WBC (Bld) 0.3 % Normal [facility] Comment on above: Order Comment: Speci men Type: BLOOD SPECIMENOrdering Facility: [facility] Address: [address] [place] [address] Performed By: #### 5 7021-8 ####[facility] CENTERLIA [id number] [place] [address] [place] Lymphocytes (Bld) [#/Vol] 1.62 10*3/uL Normal 1.00-4.00 [facility] Comment on above: Order Comment: Speci men Type: BLOOD SPECIMENOrdering Facility: [facility] Address: [address] [place] [address] Performed By: #### 5 7021-8 ####[facility] CENTERLIA [id number] [place] [address] [place] Lymphocytes/100 WBC (Bld) 54.0 % Normal [facility] Comment on above: Order Comment: Speci men Type: BLOOD SPECIMENOrdering Facility: [facility] Address: [address] [place] [address] Performed By: #### 5 7021-8 ####[facility] MGROMAIN [id number] [address] [place] [facility] MCH (RBC) [Entitic mass] 31.8 pg Normal 26.0-34.0 [facility] Comment on above: Order Comment: Speci men Type: BLOOD SPECIMENOrdering Facility: [facility] Address: [address] [place] [address] Performed By: #### 5 7021-8 ####[facility]ITALNCCENTR[facility] [id number] [place] [address] [place] MCHC (RBC) [Mass/Vol] 32.4 g/dL Normal 30.5-36.0 [facility] Comment on above: Order Comment: Speci men Type: BLOOD SPECIMENOrdering Facility: [facility] Address: [address] [place] [address] Performed By: #### 5 7021-8 ####[facility]ITALNCCENTR[facility] [id number] [place] [address] [place] MCV (RBC) [Entitic vol] 98.1 fL Normal 80.0-100.0 [facility] Comment on above: Order Comment: Speci men Type: BLOOD SPECIMENOrdering Facility: [facility] Address: [address] [place] [address] Performed By: #### 5 7021-8 ####[facility] [id number] [place] [address] [place] Monocytes (Bld) [#/Vol] 0.23 10*3/uL Normal <0.87 [facility] Comment on above: Order Comment: Speci men Type: BLOOD SPECIMENOrdering Facility: [facility] Address: [address] [place] [address] Performed By: #### 5 7021-8 ####[facility] MILLWNCLIA [id number] [place] [address] [place] Monocytes/100 WBC (Bld) 7.7 % Normal [facility] Comment on above: Order Comment: Speci men Type: BLOOD SPECIMENOrdering Facility: [facility] Address: [address] [place] [address] Performed By: #### 5 7021-8 ####[facility] HOSPITALNCLIA [id number] [place] [address] [place] Neutrophils (Bld) [#/Vol] 1.10 10*3/uL Low 1.45-7.50 [facility] Comment on above: Order Comment: Speci men Type: BLOOD SPECIMENOrdering Facility: [facility] Address: [address] [place] [address] Performed By: #### 5 7021-8 ####[facility] CENTERLIA [id number] [place] [address] [place] Neutrophils/100 WBC (Bld) 36.7 % Normal [facility] Comment on above: Order Comment: Speci men Type: BLOOD SPECIMENOrdering Facility: [facility] Address: [address] [place] [address] Performed By: #### 5 7021-8 ####[facility] CENTERLIA [id number] [place] [address] [place] Nucleated RBC (Bld) [#/Vol] 10*3/uL Normal <0.01 [facility] Comment on above: Order Comment: Speci men Type: BLOOD SPECIMENOrdering Facility: [facility] Address: [address] [place] [address] Performed By: #### 5 7021-8 ####[facility] CENTERLIA [id number] [place] [address] [place] Nucleated RBC/100 WBC (Bld) [Ratio] 0.0 /100 WBC Normal [facility] Comment on above: Order Comment: Speci men Type: BLOOD SPECIMENOrdering Facility: [facility] Address: [address] [place] [address] Performed By: #### 5 7021-8 ####[facility]ITALNCCENTR[facility] [id number] [place] [address] [place] Platelet mean volume (Bld) [Entitic vol] 9.1 fL Normal 9.0-12.7 [facility] Comment on above: Order Comment: Speci men Type: BLOOD SPECIMENOrdering Facility: [facility] Address: [address] [place] [address] Performed By: #### 5 7021-8 ####[facility] [id number] [place] [address] [place] Platelets (Bld) [#/Vol] 373 10*3/uL Normal 150-400 [facility] Comment on above: Order Comment: Speci men Type: BLOOD SPECIMENOrdering Facility: [facility] Address: [address] [place] [address] Performed By: #### 5 7021-8 ####[facility] [id number] [place] [address] [place] RBC (Bld) [#/Vol] 3.65 10*6/uL Low 3.90-5.20 [facility] Comment on above: Order Comment: Speci men Type: BLOOD SPECIMENOrdering Facility: [facility] Address: [address] [place] [address] Performed By: #### 5 7021-8 ####[facility] HOSPITALNCLI [id number] [place] [address] [place] WBC (Bld) [#/Vol] 3.00 10*3/uL Low 3.70-11.00 [facility] Comment on above: Order Comment: Speci men Type: BLOOD SPECIMENOrdering Facility: [facility] Address: [address] [place] [address] Performed By: #### 5 7021-8 ####[facility]ITALNCCENTR[facility] [id number] [place] [address] [place] CNPNon 07-12-2023 CNPN Normal [facility] CBC W Auto Differential pane l (Bld)on 07-07-2023 Basophils (Bld) [#/Vol] 0.03 10*3/uL Normal <0.11 [facility] Comment on above: Order Comment: Speci men Type: BLOOD SPECIMENOrdering Facility: [facility] Address: [address] [place] [address] Performed By: #### 5 7021-8 ####[facility]ITALNCCEN[facility] [id number] [place] [address] [place] Basophils/100 WBC (Bld) 1.0 % Normal [facility] Comment on above: Order Comment: Speci men Type: BLOOD SPECIMENOrdering Facility: [facility] Address: [address] [place] [address] Performed By: #### 5 7021-8 ####[facility]ITALNCC[facility] [id number] [place] [address] [place] Differential cell count method Nom (Bld) Auto Normal [facility] Comment on above: Order Comment: Speci men Type: BLOOD SPECIMENOrdering Facility: [facility] Address: [address] [place] [address] Performed By: #### 5 7021-8 ####[facility] [id number] [place] [address] [place] Eosinophils (Bld) [#/Vol] 0.05 10*3/uL Normal <0.46 [facility] Comment on above: Order Comment: Speci men Type: BLOOD SPECIMENOrdering Facility: [facility] Address: [address] [place] [address] Performed By: #### 5 7021-8 ####[facility] MILLWNCLIA [id number] [place] [address] [place] Eosinophils/100 WBC (Bld) 1.6 % Normal [facility] Comment on above: Order Comment: Speci men Type: BLOOD SPECIMENOrdering Facility: [facility] Address: [address] [place] [address] Performed By: #### 5 7021-8 ####[facility]PITALNCLIA [id number] [place] [address] [place] Erythrocyte distribution width (RBC) [Ratio] 15.3 % High 11.5-15.0 [facility] Comment on above: Order Comment: Speci men Type: BLOOD SPECIMENOrdering Facility: [facility] Address: [address] [place] [address] Performed By: #### 5 7021-8 ####[facility] CENTERLIA [id number] [place] [address] [place] Hematocrit (Bld) [Volume fraction] 36.1 % Normal 36.0-46.0 [facility] Comment on above: Order Comment: Speci men Type: BLOOD SPECIMENOrdering Facility: [facility] Address: [address] [place] [address] Performed By: #### 5 7021-8 ####[facility] HOSPITALWNCLIA [id number] [place] [address] [place] Hemoglobin (Bld) [Mass/Vol] 11.6 g/dL Normal 11.5-15.5 [facility] Comment on above: Order Comment: Speci men Type: BLOOD SPECIMENOrdering Facility: [facility] Address: [address] [place] [address] Performed By: #### 5 7021-8 ####[facility] CENTERLIA [id number] [place] [address] [place] Immature granulocytes (Bld) [#/Vol] 10*3/uL Normal <0.10 [facility] Comment on above: Order Comment: Speci men Type: BLOOD SPECIMENOrdering Facility: [facility] Address: [address] [place] [address] Performed By: #### 5 7021-8 ####[facility] CENTERLIA [id number] [place] [address] [place] Immature granulocytes/100 WBC (Bld) 0.0 % Normal [facility] Comment on above: Order Comment: Speci men Type: BLOOD SPECIMENOrdering Facility: [facility] Address: [address] [place] [address] Performed By: #### 5 7021-8 ####[facility] HOSPITALANYILIDavid [id number] [place] [address] [place] Lymphocytes (Bld) [#/Vol] 1.82 10*3/uL Normal 1.00-4.00 [facility] Comment on above: Order Comment: Speci men Type: BLOOD SPECIMENOrdering Facility: [facility] Address: [address] [place] [address] Performed By: #### 5 7021-8 ####[facility] CENTERLIA [id number] [place] [address] [place] Lymphocytes/100 WBC (Bld) 58.7 % Normal [facility] Comment on above: Order Comment: Speci men Type: BLOOD SPECIMENOrdering Facility: [facility] Address: [address] [place] [address] Performed By: #### 5 7021-8 ####[facility] CENTERLIA [id number] [place] [address] [place] MCH (RBC) [Entitic mass] 31.7 pg Normal 26.0-34.0 [facility] Comment on above: Order Comment: Speci men Type: BLOOD SPECIMENOrdering Facility: [facility] Address: [address] [place] [address] Performed By: #### 5 7021-8 ####[facility] MARYLU [id number] [place] [address] [place] MCHC (RBC) [Mass/Vol] 32.1 g/dL Normal 30.5-36.0 [facility] Comment on above: Order Comment: Speci men Type: BLOOD SPECIMENOrdering Facility: [facility] Address: [address] [place] [address] Performed By: #### 5 7021-8 ####[facility]ITALANNIA [id number] [place] [address] [place] MCV (RBC) [Entitic vol] 98.6 fL Normal 80.0-100.0 [facility] Comment on above: Order Comment: Speci men Type: BLOOD SPECIMENOrdering Facility: [facility] Address: [address] [place] [address] Performed By: #### 5 7021-8 ####[facility] HOSPITALANNIA [id number] [place] [address] [place] Monocytes (Bld) [#/Vol] 0.21 10*3/uL Normal <0.87 [facility] Comment on above: Order Comment: Speci men Type: BLOOD SPECIMENOrdering Facility: [facility] Address: [address] [place] [address] Performed By: #### 5 7021-8 ####[facility] HOSPITALLAILAA [id number] [place] [address] [place] Monocytes/100 WBC (Bld) 6.8 % Normal [facility] Comment on above: Order Comment: Speci men Type: BLOOD SPECIMENOrdering Facility: [facility] Address: [address] [place] [address] Performed By: #### 5 7021-8 ####[facility] MILLTOWNCLIA [id number] [place] [address] [place] Neutrophils (Bld) [#/Vol] 0.99 10*3/uL Low 1.45-7.50 [facility] Comment on above: Order Comment: Speci men Type: BLOOD SPECIMENOrdering Facility: [facility] Address: [address] [place] [address] Performed By: #### 5 7021-8 ####[facility] MEDICAL CENTERLIA [id number] [place] [address] [place] Neutrophils/100 WBC (Bld) 31.9 % Normal [facility] Comment on above: Order Comment: Speci men Type: BLOOD SPECIMENOrdering Facility: [facility] Address: [address] [place] [address] Performed By: #### 5 7021-8 ####[facility] MEDICAL CENTERLIA [id number] [place] [address] [place] Nucleated RBC (Bld) [#/Vol] 10*3/uL Normal <0.01 [facility] Comment on above: Order Comment: Speci men Type: BLOOD SPECIMENOrdering Facility: [facility] Address: [address] [place] [address] Performed By: #### 5 7021-8 ####[facility] MEDICAL CENTERLIA [id number] [place] [address] [place] Nucleated RBC/100 WBC (Bld) [Ratio] 0.0 /100 WBC Normal [facility] Comment on above: Order Comment: Speci men Type: BLOOD SPECIMENOrdering Facility: [facility] Address: [address] [place] [address] Performed By: #### 5 7021-8 ####[facility] MED[facility] CENTERLIA [id number] [place] [address] [place] Platelet mean volume (Bld) [Entitic vol] 9.5 fL Normal 9.0-12.7 [facility] Comment on above: Order Comment: Speci men Type: BLOOD SPECIMENOrdering Facility: [facility] Address: [place] [address] Performed By: #### 5 7021-8 ####[facility] HOSPITALNCLIA [id number] [place] [address] [place] Platelets (Bld) [#/Vol] 190 10*3/uL Normal 150-400 [facility] Comment on above: Order Comment: Speci men Type: BLOOD SPECIMENOrdering Facility: [facility] Address: [address] [place] [address] Performed By: #### 5 7021-8 ####[facility] HOSPITALNCA [id number] [place] [address] [place] RBC (Bld) [#/Vol] 3.66 10*6/uL Low 3.90-5.20 [facility] Comment on above: Order Comment: Speci men Type: BLOOD SPECIMENOrdering Facility: [facility] Address: [address] [place] [address] Performed By: #### 5 7021-8 ####[facility] HOSPITALNCLIA [id number] [place] [address] [place] WBC (Bld) [#/Vol] 3.10 10*3/uL Low 3.70-11.00 [facility] Comment on above: Order Comment: Speci men Type: BLOOD SPECIMENOrdering Facility: [facility] Address: [address] [place] [address] Performed By: #### 5 7021-8 ####[facility] HOSPITALNCLIA [id number] [place] [address] [place] CNOVSPon 07-07-2023 CNOVSP Normal [facility] Cancer Ag125 SerPl-aCncon Cancer Ag 125 Qn 6 [arb'U]/mL Normal <39 [facility] Comment on above: Order Comment: Zay sandoval Type: BLOOD SPECIMENOrdering Facility: [facility] Address: [place] [address] Result Comment: CA 1 25 test methodology [...] (CA 125 II) [package insert V 1.0 [place]kinan]. eyeQ, [place], [place] (May 2015) Performed By: #### 1 0334-1 ####[facility] LABCLIA [id number] [place] [address] [place] Comprehensive metabolic 2000 panelon 07-07-2023 Albumin [Mass/Vol] 4.4 g/dL Normal 3.9-4.9 [facility] Comment on above: Order Comment: Zay sandoval Type: BLOOD SPECIMENOrdering Facility: [facility] Address: [address] [place] [address] Performed By: #### 1 9123-9, 83592-9 ####[facility] [id number] [place] [address] [place] ALP [Catalytic activity/Vol] 93 U/L Normal 34-123 [facility] Comment on above: Order Comment: Speci men Type: BLOOD SPECIMENOrdering Facility: [facility] Address: [place] [address] Performed By: #### 1 9123-9, 01426-3 ####[facility] [id number] [place] [address] [place] ALT [Catalytic activity/Vol] 9 U/L Normal 7-38 [facility] Comment on above: Order Comment: Speci men Type: BLOOD SPECIMENOrdering Facility: [facility] Address: [address] [place] [address] Performed By: #### 1 9123-9, 66876-5 ####[facility] PAULINE MARYLU [id number] [place] [address] [place] Anion gap [Moles/Vol] 9 mmol/L Normal 9-18 [facility] Comment on above: Order Comment: Speci men Type: BLOOD SPECIMENOrdering Facility: [facility] Address: [address] [place] [address] Performed By: #### 1 9123-9, 13712-0 ####[facility] MGEVANSVILLEANNIA [id number] [place] [address] [place] AST [Catalytic activity/Vol] 18 U/L Normal 13-35 [facility] Comment on above: Order Comment: Speci men Type: BLOOD SPECIMENOrdering Facility: [facility] Address: [address] [place] [address] Performed By: #### 1 9123-9, 85121-1 ####[facility] MGBLOOMINGTON HOSPITAL OF ORANGE COUNTYSTEFANIEA [id number] [place] [address] [place] Bilirubin [Mass/Vol] 0.4 mg/dL Normal 0.2-1.3 [facility] Comment on above: Order Comment: Speci men Type: BLOOD SPECIMENOrdering Facility: [facility] Address: [address] [place] [address] Performed By: #### 1 9123-9, 93307-8 ####[facility] HOSPITALNCSTEFANIEA [id number] [place] [address] [place] Calcium [Mass/Vol] 10.0 mg/dL Normal 8.5-10.2 [facility] Comment on above: Order Comment: Speci men Type: BLOOD SPECIMENOrdering Facility: [facility] Address: [address] [place], [place] [address] Performed By: #### 1 9123-9, 98926-3 ####[facility] HOSPITALWNCLIA [id number] [place] [address] [place] Chloride [Moles/Vol] 103 mmol/L Normal 97-105 [facility] Comment on above: Order Comment: Speci men Type: BLOOD SPECIMENOrdering Facility: [facility] Address: [address] [place] [address] Performed By: #### 1 9123-9, 46898-3 ####[facility] HOSPITALNCLIA [id number] [place] [address] [place] CO2 [Moles/Vol] 24 mmol/L Normal 22-30 [facility] Comment on above: Order Comment: Speci men Type: BLOOD SPECIMENOrdering Facility: [facility] Address: [address] [place] [address] Performed By: #### 1 9123-9, 40979-8 ####[facility] HOSPITALNCLIA [id number] [place] [address] [place] Creatinine [Mass/Vol] 0.64 mg/dL Normal 0.58-0.96 [facility] Comment on above: Order Comment: Speci men Type: BLOOD SPECIMENOrdering Facility: [facility] Address: [address] [place] [address] Performed By: #### 1 9123-9, 01326-0 ####[facility] HOSPITALNCLIA [id number] [place] [address] [place] Creatinine and Glomerular filtration rate.predicted panel (S/P/Bld) 87 mL/min/1.73m??? Normal >=60 [facility] Comment on above: Order Comment: Speci men Type: BLOOD SPECIMENOrdering Facility: [facility] Address: [address] [place] [address] Result Comment: Marlyn mated Glomerular Filtration Rate [...] actual GFR. Performed By: #### 1 9123-9, 91416-0 ####[facility] HOSPITALANYILIDavid [id number] [place] [address] [place] Glucose [Mass/Vol] 102 mg/dL High 74-99 [facility] Comment on above: Order Comment: Speci men Type: BLOOD SPECIMENOrdering Facility: [facility] Address: [address] [place] [address] Result Comment: The [place] Diabetes Association (ADA) provides guidance for cutoff [...] Standards of Medical Care in Diabetes 2016, [place] [employer]. Diabetes Care. 2016.39(Suppl 1). Performed By: #### 1 9123-9, 85682-2 ####[facility] CENTERLIA [id number] [place] [address] [place] Potassium [Moles/Vol] 4.1 mmol/L Normal 3.7-5.1 [facility] Comment on above: Order Comment: Speci men Type: BLOOD SPECIMENOrdering Facility: [facility] Address: [address] [place] [address] Performed By: #### 1 9123-9, 07069-4 ####[facility] CENTERLIA [id number] [place] [address] [place] Protein [Mass/Vol] 7.7 g/dL Normal 6.3-8.0 [facility] Comment on above: Order Comment: Speci men Type: BLOOD SPECIMENOrdering Facility: [facility] Address: [address] [place] [address] Performed By: #### 1 9123-9, 07837-9 ####[facility] MILLWANYILIA [id number] [place] [address] [place] Sodium [Moles/Vol] 136 mmol/L Normal 136-144 [facility] Comment on above: Order Comment: Speci men Type: BLOOD SPECIMENOrdering Facility: [facility] Address: [address] [place] [address] Performed By: #### 1 9123-9, 94675-2 ####[facility] HOSPITALNCSTEFANIEA [id number] [place] [address] [place] Urea nitrogen [Mass/Vol] 26 mg/dL High 7-21 [facility] Comment on above: Order Comment: Speci men Type: BLOOD SPECIMENOrdering Facility: [facility] Address: [address] [place] [address] Performed By: #### 1 9123-9, 67225-2 ####[facility] HOSPITALNCLIA [id number] [place] [address] [place] Magnesium SerPl-ncon 07-07 Magnesium [Mass/Vol] 1.9 mg/dL Normal 1.7-2.3 [facility] Comment on above: Order Comment: Speci men Type: BLOOD SPECIMENOrdering Facility: [facility] Address: [address] [place] [address] Performed By: #### 1 9123-9, 05029-3 ####[facility] HOSPITALNCLIA [id number] [place] [address] [place] CNPNon 06-17-2023 CNPN Normal [facility] CNPNon 06-11-2023 CNPN Normal [facility] Comprehensive metabolic 2000 panelon 06-10-2023 Albumin [Mass/Vol] 4.0 g/dL Normal 3.9-4.9 [facility] Comment on above: Order Comment: Speci men Type: BLOOD SPECIMENOrdering Facility: [facility] Address: [address] [place] [address] Performed By: #### 2 4323-8 ####[facility] MILLTOWNCLIA [id number] [place] [address] [place] ALP [Catalytic activity/Vol] 90 U/L Normal 34-123 [facility] Comment on above: Order Comment: Speci men Type: BLOOD SPECIMENOrdering Facility: [facility] Address: [address] [place] [address] Performed By: #### 2 4323-8 ####[facility] HOSPITALWNCLIA [id number] [place] [address] [place] ALT [Catalytic activity/Vol] 8 U/L Normal 7-38 [facility] Comment on above: Order Comment: Speci men Type: BLOOD SPECIMENOrdering Facility: [facility] Address: [address] [place] [address] Performed By: #### 2 4323-8 ####[facility] HOSPITALWNCLIA [id number] [place] [address] [place] Anion gap [Moles/Vol] 8 mmol/L Low 9-18 [facility] Comment on above: Order Comment: Speci men Type: BLOOD SPECIMENOrdering Facility: [facility] Address: [address] [place] [address] Performed By: #### 2 4323-8 ####[facility] PAULINE MILLTOWNCLIA [id number] [place] [address] [place] AST [Catalytic activity/Vol] 15 U/L Normal 13-35 [facility] Comment on above: Order Comment: Speci men Type: BLOOD SPECIMENOrdering Facility: [facility] Address: [address] [place] [address] Performed By: #### 2 4323-8 ####[facility] JESSICAWNCLIA [id number] [place] [address] [place] Bilirubin [Mass/Vol] 0.4 mg/dL Normal 0.2-1.3 [facility] Comment on above: Order Comment: Speci men Type: BLOOD SPECIMENOrdering Facility: [facility] Address: [address] [place] [address] Performed By: #### 2 4323-8 ####[facility] HOSPITALNCSTEFANIEA [id number] [place] [address] [place] Calcium [Mass/Vol] 9.1 mg/dL Normal 8.5-10.2 [facility] Comment on above: Order Comment: Speci men Type: BLOOD SPECIMENOrdering Facility: [facility] Address: [address] [place] [address] Performed By: #### 2 4323-8 ####[facility] HOSPITALNCLIA [id number] [place] [address] [place] Chloride [Moles/Vol] 102 mmol/L Normal 97-105 [facility] Comment on above: Order Comment: Speci men Type: BLOOD SPECIMENOrdering Facility: [facility] Address: [address] [place] [address] Performed By: #### 2 4323-8 ####[facility] HOSPITALNCLIA [id number] [place] [address] [place] CO2 [Moles/Vol] 27 mmol/L Normal 22-30 [facility] Comment on above: Order Comment: Speci men Type: BLOOD SPECIMENOrdering Facility: [facility] Address: [address] [place] [address] Performed By: #### 2 4323-8 ####[facility] HOSPITALNCLI [id number] [place] [address] [place] Creatinine [Mass/Vol] 0.59 mg/dL Normal 0.58-0.96 [facility] Comment on above: Order Comment: Speci men Type: BLOOD SPECIMENOrdering Facility: [facility] Address: [address] [place] [address] Performed By: #### 2 4323-8 ####[facility] HOSPITALNCLI [id number] [place] [address] [place] Creatinine and Glomerular filtration rate.predicted panel (S/P/Bld) 89 mL/min/1.73m??? Normal >=60 [facility] Comment on above: Order Comment: Speci men Type: BLOOD SPECIMENOrdering Facility: [facility] Address: [address] [place] [address] Result Comment: Marlyn mated Glomerular Filtration Rate [...] actual GFR. Performed By: #### 2 4323-8 ####[facility] HOSPITALNCCENTRAL VALLEY MED[facility]ENTER [id number] [place] [address] [place] Glucose [Mass/Vol] 96 mg/dL Normal 74-99 [facility] Comment on above: Order Comment: Speci men Type: BLOOD SPECIMENOrdering Facility: [facility] Address: [address] [place] [address] Result Comment: The [place] Diabetes Association (ADA) provides guidance for cutoff [...] Standards of Medical Care in Diabetes 2016, [place] [employer]. Diabetes Care. 2016.39(Suppl 1). Performed By: #### 2 4323-8 ####[facility] MILLTOWANYILIA [id number] [place] [address] [place] Potassium [Moles/Vol] 4.1 mmol/L Normal 3.7-5.1 [facility] Comment on above: Order Comment: Speci men Type: BLOOD SPECIMENOrdering Facility: [facility] Address: [address] [place] [address] Performed By: #### 2 4323-8 ####[facility] HOSPITALANYILIA [id number] [place] [address] [place] Protein [Mass/Vol] 6.9 g/dL Normal 6.3-8.0 [facility] Comment on above: Order Comment: Speci men Type: BLOOD SPECIMENOrdering Facility: [facility] Address: [address] [place] [address] Performed By: #### 2 4323-8 ####[facility] HOSPITALANYILIA [id number] [place] [address] [place] Sodium [Moles/Vol] 137 mmol/L Normal 136-144 [facility] Comment on above: Order Comment: Speci men Type: BLOOD SPECIMENOrdering Facility: [facility] Address: [address] [place] [address] Performed By: #### 2 4323-8 ####[facility] HOSPITALWNCLIA [id number] [place] [address] [place] Urea nitrogen [Mass/Vol] 21 mg/dL Normal 7-21 [facility] Comment on above: Order Comment: Speci men Type: BLOOD SPECIMENOrdering Facility: [facility] Address: [facility]YW[facility] [place] [address] Performed By: #### 2 4323-8 ####[facility] PAULINE HOLLIDAYEVANSVILLEANYIFARZANA [id number] [place] [address] [place] CNPNon 06-07-2023 CNPN Normal [facility] CNPNon 06-04-2023 CNPN Normal [facility] CA 125 BLDon 06-02-2023 Cancer Ag 125 Qn 12 [arb'U]/mL <39 U/mL [facility] CBC W Auto Differential pane l (Bld)on 06-02-2023 Basophils (Bld) [#/Vol] 0.06 10*3/uL <0.11 k/uL [facility] Basophils/100 WBC (Bld) 1.3 % [facility] Differential cell count method Nom (Bld) Auto [facility] Eosinophils (Bld) [#/Vol] 0.16 10*3/uL <0.46 k/uL [facility] Eosinophils/100 WBC (Bld) 3.5 % [facility] Erythrocyte distribution width (RBC) [Ratio] 13.3 % 11.5 - 15.0 % [facility] Hematocrit (Bld) [Volume fraction] 39.7 % 36.0 - 46.0 % [facility] Hemoglobin (Bld) [Mass/Vol] 12.5 g/dL 11.5 - 15.5 g/dL [facility] Immature granulocytes (Bld) [#/Vol] <0.10 k/uL [facility] Immature granulocytes/100 WBC (Bld) 0.2 % [facility] Lymphocytes (Bld) [#/Vol] 1.77 10*3/uL 1.00 - 4.00 k/uL [facility] Lymphocytes/100 WBC (Bld) 38.3 % [facility] MCH (RBC) [Entitic mass] 30.9 pg 26.0 - 34.0 pg [facility] MCHC (RBC) [Mass/Vol] 31.5 g/dL 30.5 - 36.0 g/dL [facility] MCV (RBC) [Entitic vol] 98.3 fL 80.0 - 100.0 fL [facility] Monocytes (Bld) [#/Vol] 0.42 10*3/uL <0.87 k/uL [facility] Monocytes/100 WBC (Bld) 9.1 % [facility] Neutrophils (Bld) [#/Vol] 2.20 10*3/uL 1.45 - 7.50 k/uL [facility] Neutrophils/100 WBC (Bld) 47.6 % [facility] Nucleated RBC (Bld) [#/Vol] <0.01 k/uL [facility] Nucleated RBC/100 WBC (Bld) [Ratio] 0.0 /100 WBC [facility] Platelet mean volume (Bld) [Entitic vol] 9.4 fL 9.0 - 12.7 fL [facility] Platelets (Bld) [#/Vol] 262 10*3/uL 150 - 400 k/uL [facility] RBC (Bld) [#/Vol] 4.04 10*6/uL 3.90 - 5.20 m/uL [facility] WBC (Bld) [#/Vol] 4.62 10*3/uL 3.70 - 11.00 k/uL [facility] Basophils (Bld) [#/Vol] 0.06 10*3/uL Normal <0.11 [facility] Comment on above: Order Comment: Speci men Type: BLOOD SPECIMENOrdering Facility: [facility] Address: [address] [place] [address] Performed By: #### 5 7021-8 ####[facility] [id number] [place] [address] [place] Basophils/100 WBC (Bld) 1.3 % Normal [facility] Comment on above: Order Comment: Speci men Type: BLOOD SPECIMENOrdering Facility: [facility] Address: [address] [place] [address] Performed By: #### 5 7021-8 ####[facility] [id number] [place] [address] [place] Differential cell count method Nom (Bld) Auto Normal [facility] Comment on above: Order Comment: Speci men Type: BLOOD SPECIMENOrdering Facility: [facility] Address: [address] [place] [address] Performed By: #### 5 7021-8 ####[facility] MGWANYILIA [id number] [place] [address] [place] Eosinophils (Bld) [#/Vol] 0.16 10*3/uL Normal <0.46 [facility] Comment on above: Order Comment: Speci men Type: BLOOD SPECIMENOrdering Facility: [facility] Address: [address] [place] [address] Performed By: #### 5 7021-8 ####[facility] HOSPITALWANYILIA [id number] [place] [address] [place] Eosinophils/100 WBC (Bld) 3.5 % Normal [facility] Comment on above: Order Comment: Speci men Type: BLOOD SPECIMENOrdering Facility: [facility] Address: [address] [place] [address] Performed By: #### 5 7021-8 ####[facility] CENTERLIA [id number] [place] [address] [place] Erythrocyte distribution width (RBC) [Ratio] 13.3 % Normal 11.5-15.0 [facility] Comment on above: Order Comment: Speci men Type: BLOOD SPECIMENOrdering Facility: [facility] Address: [address] [place] [address] Performed By: #### 5 7021-8 ####[facility] HOSPITALWNCLIA [id number] [place] [address] [place] Hematocrit (Bld) [Volume fraction] 39.7 % Normal 36.0-46.0 [facility] Comment on above: Order Comment: Speci men Type: BLOOD SPECIMENOrdering Facility: [facility] Address: [address] [place] [address] Performed By: #### 5 7021-8 ####[facility]OSPITALNCLIA [id number] [place] [address] [place] Hemoglobin (Bld) [Mass/Vol] 12.5 g/dL Normal 11.5-15.5 [facility] Comment on above: Order Comment: Speci men Type: BLOOD SPECIMENOrdering Facility: [facility] Address: [address] [place] [address] Performed By: #### 5 7021-8 ####[facility] CENTERSTEFANIEA [id number] [place] [address] [place] Immature granulocytes (Bld) [#/Vol] 10*3/uL Normal <0.10 [facility] Comment on above: Order Comment: Speci men Type: BLOOD SPECIMENOrdering Facility: [facility] Address: [address] [place] [address] Performed By: #### 5 7021-8 ####[facility] [facility]ENTERSTEFANIEA [id number] [place] [address] [place] Immature granulocytes/100 WBC (Bld) 0.2 % Normal [facility] Comment on above: Order Comment: Speci men Type: BLOOD SPECIMENOrdering Facility: [facility] Address: [address] [place] [address] Performed By: #### 5 7021-8 ####[facility]OSPITALNCLIA [id number] [place] [address] [place] Lymphocytes (Bld) [#/Vol] 1.77 10*3/uL Normal 1.00-4.00 [facility] Comment on above: Order Comment: Speci men Type: BLOOD SPECIMENOrdering Facility: [facility] Address: [address] [place] [address] Performed By: #### 5 7021-8 ####[facility]OSPITALNCLIA [id number] [place] [address] [place] Lymphocytes/100 WBC (Bld) 38.3 % Normal [facility] Comment on above: Order Comment: Speci men Type: BLOOD SPECIMENOrdering Facility: [facility] Address: [address] [place] [address] Performed By: #### 5 7021-8 ####[facility] [id number] [place] [address] [place] MCH (RBC) [Entitic mass] 30.9 pg Normal 26.0-34.0 [facility] Comment on above: Order Comment: Speci men Type: BLOOD SPECIMENOrdering Facility: [facility] Address: [address] [place] [address] Performed By: #### 5 7021-8 ####[facility]ITALNCCENTR[facility] [id number] [place] [address] [place] MCHC (RBC) [Mass/Vol] 31.5 g/dL Normal 30.5-36.0 [facility] Comment on above: Order Comment: Speci men Type: BLOOD SPECIMENOrdering Facility: [facility] Address: [address] [place] [address] Performed By: #### 5 7021-8 ####[facility]ITALNCCENTRAL [facility] [id number] [place] [address] [place] MCV (RBC) [Entitic vol] 98.3 fL Normal 80.0-100.0 [facility] Comment on above: Order Comment: Speci men Type: BLOOD SPECIMENOrdering Facility: [facility] Address: [address] [place] [address] Performed By: #### 5 7021-8 ####[facility] [id number] [address] [place] Monocytes (Bld) [#/Vol] 0.42 10*3/uL Normal <0.87 [facility] Comment on above: Order Comment: Speci men Type: BLOOD SPECIMENOrdering Facility: [facility] Address: [address] [address] Performed By: #### 5 7021-8 ####[facility] MED[facility] CENTERLIA [id number] [place] [address] [place] Monocytes/100 WBC (Bld) 9.1 % Normal [facility] Comment on above: Order Comment: Speci men Type: BLOOD SPECIMENOrdering Facility: [facility] Address: [address] [place] [address] Performed By: #### 5 7021-8 ####[facility] MED[facility] CENTERLIA [id number] [place] [address] [place] Neutrophils (Bld) [#/Vol] 2.20 10*3/uL Normal 1.45-7.50 [facility] Comment on above: Order Comment: Speci men Type: BLOOD SPECIMENOrdering Facility: [facility] Address: [address] [place] [address] Performed By: #### 5 7021-8 ####[facility] MED[facility] CENTERLIA [id number] [place] [address] [place] Neutrophils/100 WBC (Bld) 47.6 % Normal [facility] Comment on above: Order Comment: Speci men Type: BLOOD SPECIMENOrdering Facility: [facility] Address: [address] [place] [address] Performed By: #### 5 7021-8 ####[facility] MED[facility] CENTERLIA [id number] [place] [address] [place] Nucleated RBC (Bld) [#/Vol] 10*3/uL Normal <0.01 [facility] Comment on above: Order Comment: Speci men Type: BLOOD SPECIMENOrdering Facility: [facility] Address: [address] [place] [address] Performed By: #### 5 7021-8 ####[facility] MED[facility] CENTERLIA [id number] [place] [address] [place] Nucleated RBC/100 WBC (Bld) [Ratio] 0.0 /100 WBC Normal [facility] Comment on above: Order Comment: Speci men Type: BLOOD SPECIMENOrdering Facility: [facility] Address: [address] [place] [address] Performed By: #### 5 7021-8 ####[facility] [id number] [place] [address] [place] Platelet mean volume (Bld) [Entitic vol] 9.4 fL Normal 9.0-12.7 [facility] Comment on above: Order Comment: Speci men Type: BLOOD SPECIMENOrdering Facility: [facility] Address: [address] [place] [address] Performed By: #### 5 7021-8 ####[facility] [id number] [place] [address] [place] Platelets (Bld) [#/Vol] 262 10*3/uL Normal 150-400 [facility] Comment on above: Order Comment: Speci men Type: BLOOD SPECIMENOrdering Facility: [facility] Address: [address] [place] [address] Performed By: #### 5 7021-8 ####[facility] INSTITUTEA [id number] [place] [address] [place] RBC (Bld) [#/Vol] 4.04 10*6/uL Normal 3.90-5.20 [facility] Comment on above: Order Comment: Speci men Type: BLOOD SPECIMENOrdering Facility: [facility] Address: [address] [place] [address] Performed By: #### 5 7021-8 ####[facility] HOSPITALNCLIA [id number] [place] [address] [place] WBC (Bld) [#/Vol] 4.62 10*3/uL Normal 3.70-11.00 [facility] Comment on above: Order Comment: Speci men Type: BLOOD SPECIMENOrdering Facility: [facility] Address: [address] [place] [address] Performed By: #### 5 7021-8 ####[facility] HEALTH CENTERLIDavid [id number] [place] [address] [place] CNOVSPon 06-02-2023 CNOVSP Normal [facility] CNPNon 06-02-2023 CNPN Normal [facility] Cancer Ag125 SerPl-aCncon Cancer Ag 125 Qn 12 [arb'U]/mL Normal <39 [facility] Comment on above: Order Comment: Speci men Type: BLOOD SPECIMENOrdering Facility: [facility] Address: [address] [place] [address] Result Comment: CA 1 25 test methodology [...] (CA 125 II) [package insert V 1.0 Burkinan]. [employer], [place], [place] (May 2015) Performed By: #### 1 0334-1 ####[facility] LABCLIA [id number] [place] [address] [place] Comprehensive metabolic 2000 panelon 06-02-2023 Albumin [Mass/Vol] 4.3 g/dL 3.9 - 4.9 g/dL [facility] ALP [Catalytic activity/Vol] 87 U/L 34 - 123 U/L [facility] ALT [Catalytic activity/Vol] 9 U/L 7 - 38 U/L [facility] Anion gap [Moles/Vol] 11 mmol/L 9 - 18 mmol/L [facility] AST [Catalytic activity/Vol] 15 U/L 13 - 35 U/L [facility] Bilirubin [Mass/Vol] 0.2 mg/dL 0.2 - 1 .3 mg/dL [facility] Calcium [Mass/Vol] 9.4 mg/dL 8.5 - 10. 2 mg/dL [facility] Chloride [Moles/Vol] 101 mmol/L 97 - 10 5 mmol/L [facility] CO2 [Moles/Vol] 26 mmol/L 22 - 30 mmol/L [facility] Creatinine [Mass/Vol] 0.66 mg/dL 0.58 - 0.96 mg/dL [facility] Estimated Glomerular Filtration Rate 87 mL/min/1.73m >=60 mL/min/1.7 3m [facility] Glucose [Mass/Vol] 116 mg/dL High 74 - 99 mg/dL [facility] Potassium [Moles/Vol] 4.1 mmol/L 3.7 - 5.1 mmol/L [facility] Protein [Mass/Vol] 7.3 g/dL 6.3 - 8.0 g/dL [facility] Sodium [Moles/Vol] 138 mmol/L 136 - 144 mmol/L [facility] Urea nitrogen [Mass/Vol] 17 mg/dL 7 - 21 mg/dL [facility] Albumin [Mass/Vol] 4.3 g/dL Normal 3.9-4.9 [facility] Comment on above: Order Comment: Speci men Type: BLOOD SPECIMENOrdering Facility: [facility] Address: [address] [place] [address] Performed By: #### 1 9123-9, 06766-1 ####[facility] [id number] [place] [address] [place] ALP [Catalytic activity/Vol] 87 U/L Normal 34-123 [facility] Comment on above: Order Comment: Speci men Type: BLOOD SPECIMENOrdering Facility: [facility] Address: [address] [place] [address] Performed By: #### 1 9123-9, 06724-3 ####[facility] MED[facility] CENTERLIA [id number] [place] [address] [place] ALT [Catalytic activity/Vol] 9 U/L Normal 7-38 [facility] Comment on above: Order Comment: Speci men Type: BLOOD SPECIMENOrdering Facility: [facility] Address: [address] [place] [address] Performed By: #### 1 9123-9, 23857-6 ####[facility] MGAniaNCSTEFANIEA [id number] [place] [address] [place] Anion gap [Moles/Vol] 11 mmol/L Normal 9-18 [facility] Comment on above: Order Comment: Speci men Type: BLOOD SPECIMENOrdering Facility: [facility] Address: [address] [place] [address] Performed By: #### 1 9123-9, 09987-9 ####[facility] HOSPITALNCLI [id number] [place] [address] [place] AST [Catalytic activity/Vol] 15 U/L Normal 13-35 [facility] Comment on above: Order Comment: Speci men Type: BLOOD SPECIMENOrdering Facility: [facility] Address: [address] [place] [address] Performed By: #### 1 9123-9, 12151-9 ####[facility] INSTITUTEA [id number] [place] [address] [place] Bilirubin [Mass/Vol] 0.2 mg/dL Normal 0.2-1.3 [facility] Comment on above: Order Comment: Speci men Type: BLOOD SPECIMENOrdering Facility: [facility] Address: [address] [place] [address] Performed By: #### 1 9123-9, 93510-6 ####[facility]A [id number] [place] [address] [place] Calcium [Mass/Vol] 9.4 mg/dL Normal 8.5-10.2 [facility] Comment on above: Order Comment: Speci men Type: BLOOD SPECIMENOrdering Facility: [facility] Address: [address] [place] [address] Performed By: #### 1 9123-9, 69040-8 ####[facility]OSPITALNCLIA [id number] [place] [address] [place] Chloride [Moles/Vol] 101 mmol/L Normal 97-105 [facility] Comment on above: Order Comment: Speci men Type: BLOOD SPECIMENOrdering Facility: [facility] Address: [address] [place] [address] Performed By: #### 1 9123-9, 93882-6 ####[facility] HOSPITALNCLIA [id number] [place] [address] [place] CO2 [Moles/Vol] 26 mmol/L Normal 22-30 [facility] Comment on above: Order Comment: Speci men Type: BLOOD SPECIMENOrdering Facility: [facility] Address: [address] [place] [address] Performed By: #### 1 9123-9, 12707-5 ####[facility]OSPITALNCLIA [id number] [place] [address] [place] Creatinine [Mass/Vol] 0.66 mg/dL Normal 0.58-0.96 [facility] Comment on above: Order Comment: Speci men Type: BLOOD SPECIMENOrdering Facility: [facility] Address: [address] [place] [address] Performed By: #### 1 9123-9, 55587-2 ####[facility] HOSPITALNCLIA [id number] [place] [address] [place] [facility] Creatinine and Glomerular filtration rate.predicted panel (S/P/Bld) 87 mL/min/1.73m??? Normal >=60 [facility] Comment on above: Order Comment: Speci men Type: BLOOD SPECIMENOrdering Facility: [facility] Address: [address] [place] [address] Result Comment: Marlyn mated Glomerular Filtration Rate [...] actual GFR. Performed By: #### 1 9123-9, 44947-8 ####[facility] HOSPITALANYILIDavid [id number] [place] [address] [place] Glucose [Mass/Vol] 116 mg/dL High 74-99 [facility] Comment on above: Order Comment: Zay sandoval Type: BLOOD SPECIMENOrdering Facility: [facility] Address: [address] [place] [address] Result Comment: The [place] Diabetes Association (ADA) provides guidance for cutoff [...] Standards of Medical Care in Diabetes 2016, [place] [employer] Association. Diabetes Care. 2016.39(Suppl 1). Performed By: #### 1 9123-9, 22580-2 ####[facility] HOSPITALNCLIA [id number] [place] [address] [place] Potassium [Moles/Vol] 4.1 mmol/L Normal 3.7-5.1 [facility] Comment on above: Order Comment: Zay sandoval Type: BLOOD SPECIMENOrdering Facility: [facility] Address: [address] [place] [address] Performed By: #### 1 9123-9, 95243-7 ####[facility] MEDICAL CENTERFARZANA [id number] [place] [address] [place] Protein [Mass/Vol] 7.3 g/dL Normal 6.3-8.0 [facility] Comment on above: Order Comment: Speci men Type: BLOOD SPECIMENOrdering Facility: [facility] Address: [address] [place] [address] Performed By: #### 1 9123-9, 91813-7 ####[facility] [id number] [place] [address] [place] Sodium [Moles/Vol] 138 mmol/L Normal 136-144 [facility] Comment on above: Order Comment: Speci men Type: BLOOD SPECIMENOrdering Facility: [facility] Address: [address] [place] [address] Performed By: #### 1 9123-9, 06019-0 ####[facility] MED[facility] CENTERLI [id number] [place] [address] [place] Urea nitrogen [Mass/Vol] 17 mg/dL Normal 7-21 [facility] Comment on above: Order Comment: Speci men Type: BLOOD SPECIMENOrdering Facility: [facility] Address: [address] [place] [address] Performed By: #### 1 9123-9, 15334-3 ####[facility] MED[facility] CENTERLIA [id number] [place] [address] [place] HBV core Ab Ser Qlon 10-25-2 023 HBV core Ab Ql (S) Negative Normal Negative [facility] Comment on above: Order Comment: Speci men Type: BLOOD SPECIMENOrdering Facility: [facility] Address: [address] [place] [address] Result Comment: No e vidence of current or past infection with Hepatitis B virus. Should recent infection be suspected, repeat testing may be considered 3-4 weeks after this draw. Performed By: #### 5 195-3, 03440-0, 65412-6 ####[facility] LABCLIA [id number] [place] [address] [place] HBV surface Ab Ql (S)on 05-10 HBV surface Ab Qn (S) <8.00 Normal [facility] Comment on above: Order Comment: Speci men Type: BLOOD SPECIMENOrdering Facility: [facility] Address: [address] [place] [address] Result Comment: <8 m IU/mL: No serological evidence of immunity to Hepatitis B Virus.>/= 8 to <12 mIU/mL: No serological evidence of immunity to Hepatitis B Virus.>/= 12 mIU/mL: Consistent with serological evidence of immunity to Hepatitis B Virus. Performed By: #### 5 195-3, 05781-5, ####[facility] LABCLIA [id number] [place] [address] [place] HBV surface Ab Ser Qlon 05-10 HBV surface Ab Ql (S) Negative Normal [facility] Comment on above: Order Comment: Speci men Type: BLOOD SPECIMENOrdering Facility: [facility] Address: [address] [place] [address] Result Comment: No s erological evidence of immunity to Hepatitis B Virus. Performed By: #### 5 195-3, 43015-9, ####[facility] LABCLIA [id number] [place] [address] [place] HBV surface Ag Ser Qlon 05-10 HBV surface Ag Ql (S) Negative Normal Negative [facility] Comment on above: Order Comment: Speci men Type: BLOOD SPECIMENOrdering Facility: [facility] Address: [address] [place] [address] Performed By: #### 5 195-3, 60194-0, ####[facility] LABCLIA [id number] [place] [address] [place] HCV Ab Ser Qlon 06-02-2023 HCV Ab Ql (S) Negative Normal Negative [facility] Comment on above: Order Comment: Zay sandoval Type: BLOOD SPECIMENOrdering Facility: [facility] Address: [address] [facility] [place] [address] Result Comment: The result suggests no evidence of active infection with Hepatitis C virus. Should recent infection be suspected, repeat testing may be considered 4-6 weeks after this draw. Performed By: #### 1 6128-1 ####[facility] LABCLIA [id number] [facility]ITALDES[facility] [place] [address] [place] MAGNESIUM BLDon 06-02-2023 Magnesium [Mass/Vol] 2.1 mg/dL 1.7 - 2 .3 mg/dL [facility] Magnesium SerPl-mCncon 06-02 Magnesium [Mass/Vol] 2.1 mg/dL Normal 1.7-2.3 [facility] Comment on above: Order Comment: Zay sandoval Type: BLOOD SPECIMENOrdering Facility: [facility] Address: [place] [address] Performed By: #### 1 9123-9, 50881-0 ####[facility]A [id number] [place] [address] [place] CNOVon 05-17-2023 CNOV Normal [facility] CNPNon 05-13-2023 CNPN Normal [facility] CNPNon 05-11-2023 CNPN Normal [facility] CNOVSPon 05-03-2023 CNOVSP Visit (SP) Office (G YNML) ----- STEFANO WASHINGTON ([id number]) 1940 F Date Time Provider Department 05/03/23 4:45 PM ELIOT CASTILLO During your visit today, we recorded the following information about you: Temperature Pulse Blood pressure Weight 97.5 degrees 93/minute 144/66 72.9 kg Eliot Castillo MD 05/04/2023 4:46 AM Signed Gynecologic Oncology [facility] Postop Re: Stefano Washington CCF#: [id number] Date of Service: 05/03/2023 Dr. Jacky Graves Dear Jacky Stefano presents for a postop visit for stage [...] Benign fibroadipose tissue. (more content not included)... [facility] ----- STEFANO WASHINGTON ([id number]) 1940 F Date Time Provider Department 04/21/23 ANNMARIE MENDOZA GYN During your visit today, we recorded the following information about you: Annmarie Mendoza APRN.[facility] 04/21/2023 4:19 PM Signed [facility] facility calling to report some redness mainly [...] currently scheduled with on 05/03. Annmarie Mendoza APRN.[facility] Allergies As of Date: 04/21/2023 Noted Allergy Reaction MACROBID (NITROFURANTOIN MONOHYD/*01/21/2023 8 - GI Upset Date Reviewed: 04/14/2023 Reviewed by: Karoline Sheldon, RN - Fully Assessed Reason for Visit: [...] Status:Closed by ANNMARIE MENDOZA on 04/21/23 Normal [facility] CASE MANAGEMon 04-14-2023 CASE MANAGEM Normal [facility] CASE MANAGEM Normal [facility] CBC panel Auto (Bld)on 04-14 Erythrocyte distribution width (RBC) [Ratio] 13.2 % Normal 11.5-15.0 [facility] Comment on above: Order Comment: Speci men Type: BLOOD SPECIMENOrdering Facility: [facility] Address: [address] [place] [id number] Performed By: #### 5 8410-2 ####[facility] LABCLIA [id number] [place] [address] [place] Hematocrit (Bld) [Volume fraction] 34.2 % Low 36.0-46.0 [facility] Comment on above: Order Comment: Speci men Type: BLOOD SPECIMENOrdering Facility: [facility] Address: [address] [place] [address] Performed By: #### 5 8410-2 ####[facility] LAB[facility] [id number] [place] [address] [place] Hemoglobin (Bld) [Mass/Vol] 10.9 g/dL Low 11.5-15.5 [facility] Comment on above: Order Comment: Speci men Type: BLOOD SPECIMENOrdering Facility: [facility] Address: [address] [place] [address] Performed By: #### 5 8410-2 ####[facility] [id number] [address] [place] MCH (RBC) [Entitic mass] 32.1 pg Normal 26.0-34.0 [facility] Comment on above: Order Comment: Speci men Type: BLOOD SPECIMENOrdering Facility: [facility] Address: [address] [place] [address] Performed By: #### 5 8410-2 ####[facility] [id number] [place] [address] [place] MCHC (RBC) [Mass/Vol] 31.9 g/dL Normal 30.5-36.0 [facility] Comment on above: Order Comment: Speci men Type: BLOOD SPECIMENOrdering Facility: [facility] Address: [address] [place] [address] Performed By: #### 5 8410-2 ####[facility] LAB[facility] [id number] [place] [address] [place] MCV (RBC) [Entitic vol] 100.6 fL High 80.0-100.0 [facility] Comment on above: Order Comment: Speci men Type: BLOOD SPECIMENOrdering Facility: [facility] Address: [address] [place], [place] [address] Performed By: #### 5 8410-2 ####[facility] LABIA [id number] [place] [address] [place] Nucleated RBC (Bld) [#/Vol] 10*3/uL Normal <0.01 [facility] Comment on above: Order Comment: Speci men Type: BLOOD SPECIMENOrdering Facility: [facility] Address: [address] [place], [place] [address] Performed By: #### 5 8410-2 ####[facility] LABIA [id number] [place] [address] [place] Platelet mean volume (Bld) [Entitic vol] 9.8 fL Normal 9.0-12.7 [facility] Comment on above: Order Comment: Speci men Type: BLOOD SPECIMENOrdering Facility: [facility] Address: [address] [place], [place] [address] Performed By: #### 5 8410-2 ####[facility] LABIA [id number] [place] [address] [place] Platelets (Bld) [#/Vol] 315 10*3/uL Normal 150-400 [facility] Comment on above: Order Comment: Speci men Type: BLOOD SPECIMENOrdering Facility: [facility] Address: [address] Performed By: #### 5 8410-2 ####[facility] LABIA [id number] [place] [address] [place] RBC (Bld) [#/Vol] 3.40 10*6/uL Low 3.90-5.20 [facility] Comment on above: Order Comment: Speci men Type: BLOOD SPECIMENOrdering Facility: [facility] Address: [address] [place], [place] [address] Performed By: #### 5 8410-2 ####[facility] LABIA [id number] [place] [address] [place] WBC (Bld) [#/Vol] 5.40 10*3/uL Normal 3.70-11.00 [facility] Comment on above: Order Comment: Speci men Type: BLOOD SPECIMENOrdering Facility: [facility] REHABILITATION Address: [address] [place] [address] Performed By: #### 5 8410-2 ####[facility] LABIA [id number] [place] [address] [place] CNDSon 04-14-2023 CNDS Normal [facility] Comprehensive metabolic 2000 panelon 04-14-2023 Albumin [Mass/Vol] 3.1 g/dL Low 3.9-4.9 [facility] Comment on above: Order Comment: Speci men Type: BLOOD SPECIMENOrdering Facility: [facility] Address: [address] [place] [address] Performed By: #### 1 9123-9, 2777-, 75858-6 ####[facility] LABIA [id number] [place] [address] [place] ALP [Catalytic activity/Vol] 63 U/L Normal 34-123 [facility] Comment on above: Order Comment: Speci men Type: BLOOD SPECIMENOrdering Facility: [facility] Address: [address] [place], [place] [address] Performed By: #### 1 9123-9, 2777-1, 64364-0 ####[facility] LABIA [id number] [address] [place] ALT [Catalytic activity/Vol] 22 U/L Normal 7-38 [facility] Comment on above: Order Comment: Speci men Type: BLOOD SPECIMENOrdering Facility: [facility] Address: [address] Performed By: #### 1 9123-9, 2777-1, 89713-0 ####[facility]IA [id number] [place] [address] [place] Anion gap [Moles/Vol] 12 mmol/L Normal 9-18 [facility] Comment on above: Order Comment: Speci men Type: BLOOD SPECIMENOrdering Facility: [facility] Address: [address] [place] [address] Performed By: #### 1 9123-9, 2777-1, 95054-6 ####[facility]IA [id number] [place] [address] [place] AST [Catalytic activity/Vol] 31 U/L Normal 13-35 [facility] Comment on above: Order Comment: Speci men Type: BLOOD SPECIMENOrdering Facility: [facility] Address: [address] [place] [address] Performed By: #### 1 9123-9, 2777-1, 95202-5 ####[facility]IA [id number] [place] [address] [place] Bilirubin [Mass/Vol] 0.4 mg/dL Normal 0.2-1.3 [facility] Comment on above: Order Comment: Speci men Type: BLOOD SPECIMENOrdering Facility: [facility] Address: [address] Performed By: #### 1 9123-9, 2777-, 16963-6 ####[facility]IA [id number] [place] [address] [place] Calcium [Mass/Vol] 8.6 mg/dL Normal 8.5-10.2 [facility] Comment on above: Order Comment: Speci men Type: BLOOD SPECIMENOrdering Facility: [facility] Address: [address] Performed By: #### 1 9123-9, 2777-, 73641-0 ####[facility]IA [id number] [place] [address] [place] Chloride [Moles/Vol] 103 mmol/L Normal 97-105 [facility] Comment on above: Order Comment: Speci men Type: BLOOD SPECIMENOrdering Facility: [facility] Address: [address] [place], [place] [address] Performed By: #### 1 9123-9, 2777, 65869-6 ####[facility]IA [id number] [place] [address] [place] CO2 [Moles/Vol] 22 mmol/L Normal 22-30 [facility] Comment on above: Order Comment: Speci men Type: BLOOD SPECIMENOrdering Facility: [facility] Address: [address] [place], [place] [address] Performed By: #### 1 9123-9, 2777, 57756-7 ####[facility] [id number] [place] [address] [place] Creatinine [Mass/Vol] 0.55 mg/dL Low 0.58-0.96 [facility] Comment on above: Order Comment: Speci men Type: BLOOD SPECIMENOrdering Facility: [facility] Address: [address] [place], [place] [address] Performed By: #### 1 9123-9, 2777-, 75281-0 ####[facility] [id number] [place] [address] [place] Creatinine and Glomerular filtration rate.predicted panel (S/P/Bld) 91 mL/min/1.73m??? Normal >=60 [facility] Comment on above: Order Comment: Speci men Type: BLOOD SPECIMENOrdering Facility: [facility] Address: [address] [place], [place] [address] Result Comment: Marlyn mated Glomerular Filtration Rate [...] GFR. Performed By: #### 1 9123-9, 2777-, 22534-3 ####[facility] LABCLIA [id number] [address] [address] [place] Glucose [Mass/Vol] 106 mg/dL High 74-99 [facility] Comment on above: Order Comment: Speclisbeth sandoval Type: BLOOD SPECIMENOrdering Facility: [facility] Address: [address] [place] [address] Result Comment: The [place] Diabetes Association (ADA) provides guidance for cutoff [...] Standards of Medical Care in Diabetes 2016, [place] [employer]. Diabetes Care. 2016.39(Suppl 1). Performed By: #### 1 9123-9, 27702-06, 36751-1 ####[facility]IA [id number] [address] [address] [place] Potassium [Moles/Vol] 3.7 mmol/L Normal 3.7-5.1 [facility] Comment on above: Order Comment: Pratibhai lori Type: BLOOD SPECIMENOrdering Facility: [facility] Address: [address] [place] [address] Performed By: #### 1 9123-9, 27702-06, ####[facility] LABCLIA [id number] [place] [address] [place] Protein [Mass/Vol] 5.9 g/dL Low 6.3-8.0 [facility] Comment on above: Order Comment: Speci men Type: BLOOD SPECIMENOrdering Facility: [facility] Address: [address] [place] [address] Performed By: #### 1 9123-9, 27702-06, ####[facility] LABCLIA [id number] [place] [address] [place] Sodium [Moles/Vol] 137 mmol/L Normal 136-144 [facility] Comment on above: Order Comment: Speci men Type: BLOOD SPECIMENOrdering Facility: [facility] Address: [address] [place] [address] Performed By: #### 1 9123-9, 27702-06, ####[facility] LABCLIA [id number] [place] [address] [place] Urea nitrogen [Mass/Vol] 12 mg/dL Normal 7-21 [facility] Comment on above: Order Comment: Speci men Type: BLOOD SPECIMENOrdering Facility: [facility] Address: [address] [place], [place] [address] Performed By: #### 1 9123-9, 27702-06, ####[facility] LABIA [id number] [place] [id number] [place] ECG COMPLETEon 04-14-2023 ECG COMPLETE Normal [facility] HIGH SENSITIVITY TROPONIN To n 04-14-2023 Troponin T.cardiac High sensitivity method [Mass/Vol] 13 ng/L High <12 [facility] Comment on above: Order Comment: Speci men Type: BLOOD SPECIMENOrdering Facility: [facility] Address: [address] [place], [place] [address] Result Comment: When assessing risk for acute [...] day MACE. Performed By: #### H STNT ####[facility] LABCLIA [id number] [place] [address] [place] Magnesium SerPl-mCncon 04-14 Magnesium [Mass/Vol] 1.9 mg/dL Normal 1.7-2.3 [facility] Comment on above: Order Comment: Speci men Type: BLOOD SPECIMENOrdering Facility: [facility] Address: [address] [place] [address] Performed By: #### 1 9123-9, 2777-1, 13637-0 ####[facility] LABCLIA [id number] [place] [address] [place] NURSING PROGon 04-14-2023 NURSING PROG Normal [facility] NUTRITIONon 04-14-2023 NUTRITION Normal [facility] Phosphate SerPl-mCncon 04-14 Phosphate [Mass/Vol] 3.9 mg/dL Normal 2.7-4.8 [facility] Comment on above: Order Comment: Speci men Type: BLOOD SPECIMENOrdering Facility: [facility] Address: [address] [place] [address] Performed By: #### 1 9123-9, 2777-1, 19826-4 ####[facility] LABIA [id number] [place] [id number] [place] CASE MANAGEMon 04-13-2023 CASE MANAGEM Normal [facility] CASE MANAGEM Normal [facility] CBC panel Auto (Bld)on 04-13 Erythrocyte distribution width (RBC) [Ratio] 13.2 % Normal 11.5-15.0 [facility] Comment on above: Order Comment: Speci men Type: BLOOD SPECIMENOrdering Facility: [facility] Address: [address] [address] Performed By: #### 5 8410-2 ####[facility] LABCLIA [id number] [place] [address] [place] Hematocrit (Bld) [Volume fraction] 35.6 % Low 36.0-46.0 [facility] Comment on above: Order Comment: Speci men Type: BLOOD SPECIMENOrdering Facility: [facility] Address: [address] [address] Performed By: #### 5 8410-2 ####[facility]IA [id number] [place] [address] [place] Hemoglobin (Bld) [Mass/Vol] 11.2 g/dL Low 11.5-15.5 [facility] Comment on above: Order Comment: Speci men Type: BLOOD SPECIMENOrdering Facility: [facility] Address: [address] [place] [address] Performed By: #### 5 8410-2 ####[facility]IA [id number] [address] [place] MCH (RBC) [Entitic mass] 32.0 pg Normal 26.0-34.0 [facility] Comment on above: Order Comment: Speci men Type: BLOOD SPECIMENOrdering Facility: [facility] Address: [address] Performed By: #### 5 8410-2 ####[facility] LABIA [id number] [place] [address] [place] MCHC (RBC) [Mass/Vol] 31.5 g/dL Normal 30.5-36.0 [facility] Comment on above: Order Comment: Speci men Type: BLOOD SPECIMENOrdering Facility: [facility] Address: [address] [place], [place] [address] Performed By: #### 5 8410-2 ####[facility]IA [id number] [place] [address] [place] MCV (RBC) [Entitic vol] 101.7 fL High 80.0-100.0 [facility] Comment on above: Order Comment: Speci men Type: BLOOD SPECIMENOrdering Facility: [facility] Address: [address] [place] [address] Performed By: #### 5 8410-2 ####[facility] LABIA [id number] [place] [address] [place] Nucleated RBC (Bld) [#/Vol] 10*3/uL Normal <0.01 [facility] Comment on above: Order Comment: Speci men Type: BLOOD SPECIMENOrdering Facility: [facility] Address: [address] [place] [address] Performed By: #### 5 8410-2 ####[facility] LABIA [id number] [place] [address] [place] Platelet mean volume (Bld) [Entitic vol] 10.4 fL Normal 9.0-12.7 [facility] Comment on above: Order Comment: Speci men Type: BLOOD SPECIMENOrdering Facility: [facility] Address: [address] [place] [address] Performed By: #### 5 8410-2 ####[facility] LABIA [id number] [place] [address] [place] Platelets (Bld) [#/Vol] 327 10*3/uL Normal 150-400 [facility] Comment on above: Order Comment: Speci men Type: BLOOD SPECIMENOrdering Facility: [facility] Address: [address] [place] [address] Performed By: #### 5 8410-2 ####[facility]IA [id number] [place] [address] [place] RBC (Bld) [#/Vol] 3.50 10*6/uL Low 3.90-5.20 [facility] Comment on above: Order Comment: Speci men Type: BLOOD SPECIMENOrdering Facility: [facility] Address: [address] [place] [address] Performed By: #### 5 8410-2 ####[facility] LABCLIA [id number] [address] WBC (Bld) [#/Vol] 6.06 10*3/uL Normal 3.70-11.00 [facility] Comment on above: Order Comment: Speci men Type: BLOOD SPECIMENOrdering Facility: [facility] Address: [address] [place] [address] Performed By: #### 5 8410-2 ####[facility] LABCLIA [id number] [place] [address] [place] [facility] [employer] Comprehensive metabolic 2000 panelon 04-13-2023 Albumin [Mass/Vol] 3.5 g/dL Low 3.9-4.9 [facility] Comment on above: Order Comment: Speci men Type: BLOOD SPECIMENOrdering Facility: [facility] Address: [address] [place], [place] [address] Performed By: #### 2 4323-8, , 2776- ####[facility] LABCLIA [id number] [place] [address] [place] ALP [Catalytic activity/Vol] 63 U/L Normal 34-123 [facility] Comment on above: Order Comment: Speci men Type: BLOOD SPECIMENOrdering Facility: [facility] Address: [address] [place], [place] [address] Performed By: #### 2 4323-8, 88588-9, 2776-1 ####[facility] LABCLIA [id number] [place] [address] [place] ALT [Catalytic activity/Vol] 14 U/L Normal 7-38 [facility] Comment on above: Order Comment: Speci men Type: BLOOD SPECIMENOrdering Facility: [facility] Address: [place] [address] Performed By: #### 2 4323-8, , 2776-08 ####[facility] LABCLIA [id number] [place] [address] [place] Anion gap [Moles/Vol] 11 mmol/L Normal 9-18 [facility] Comment on above: Order Comment: Speci men Type: BLOOD SPECIMENOrdering Facility: [facility] Address: [address] [place], [place] [address] Performed By: #### 2 4323-8, , 2776-08 ####[facility] LABCLIA [id number] [place] [address] [place] AST [Catalytic activity/Vol] 23 U/L Normal 13-35 [facility] Comment on above: Order Comment: Speci men Type: BLOOD SPECIMENOrdering Facility: [facility] Address: [address] [place], [place] [address] Performed By: #### 2 4323-8, , 2776-08 ####[facility] LABCLIA [id number] [place] [address] [place] Bilirubin [Mass/Vol] 0.6 mg/dL Normal 0.2-1.3 [facility] Comment on above: Order Comment: Speci men Type: BLOOD SPECIMENOrdering Facility: [facility] Address: [address] [place], [place] [address] Performed By: #### 2 4323-8, , 2776-08 ####[facility] LABCLIA [id number] [address] [address] [place] Calcium [Mass/Vol] 8.9 mg/dL Normal 8.5-10.2 [facility] Comment on above: Order Comment: Speci men Type: BLOOD SPECIMENOrdering Facility: [facility] Address: [address] Performed By: #### 2 4323-8, , 2776-08 ####[facility] LABCLIA [id number] [place] [address] [place] Chloride [Moles/Vol] 103 mmol/L Normal 97-105 [facility] Comment on above: Order Comment: Speci men Type: BLOOD SPECIMENOrdering Facility: [facility] Address: [address] Performed By: #### 2 4323-8, , 2776-08 ####[facility] LABCLIA [id number] [place] [address] [place] CO2 [Moles/Vol] 26 mmol/L Normal 22-30 [facility] Comment on above: Order Comment: Speci men Type: BLOOD SPECIMENOrdering Facility: [facility] Address: [address] [place], [place] [address] Performed By: #### 2 4323-8, , 2776-08 ####[facility] LABCLIA [id number] [place] [address] [place] Creatinine [Mass/Vol] 0.64 mg/dL Normal 0.58-0.96 [facility] Comment on above: Order Comment: Speci men Type: BLOOD SPECIMENOrdering Facility: [facility] Address: [address] Performed By: #### 2 4323-8, , 2776-08 ####[facility] LABCLIA [id number] [place] [address] [place] Creatinine and Glomerular filtration rate.predicted panel (S/P/Bld) 87 mL/min/1.73m??? Normal >=60 [facility] Comment on above: Order Comment: Zay sandoval Type: BLOOD SPECIMENOrdering Facility: [facility] Address: [address] [place] [phone] Result Comment: Marlyn mated Glomerular Filtration Rate [...] actual GFR. Performed By: #### 2 4323-8, 43197-6, 2776- ####[facility] LABIA [id number] [place] [address] [place] Glucose [Mass/Vol] 93 mg/dL Normal 74-99 [facility] Comment on above: Order Comment: Zay sandoval Type: BLOOD SPECIMENOrdering Facility: [facility] Address: [address] [place], [place] [address] Result Comment: The [place] Diabetes Association (ADA) provides guidance for cutoff [...] Standards of Medical Care in Diabetes 2016, [place] [employer]. Diabetes Care. 2016.39(Suppl 1). Performed By: #### 2 4323-8, 17789-1, 2776-08 ####[facility] LABCLIA [id number] [place] [id number] [place] Potassium [Moles/Vol] 4.1 mmol/L Normal 3.7-5.1 [facility] Comment on above: Order Comment: Zay sandoval Type: BLOOD SPECIMENOrdering Facility: [facility] Address: [address] Performed By: #### 2 4323-8, , 2776-08 ####[facility] LABCLIA [id number] [place] [address] [place] Protein [Mass/Vol] 6.4 g/dL Normal 6.3-8.0 [facility] Comment on above: Order Comment: Speci men Type: BLOOD SPECIMENOrdering Facility: [facility] Address: [address] [place], [place] [address] Performed By: #### 2 4323-8, , 2776-08 ####[facility] LABCLIA [id number] [place] [address] [place] Sodium [Moles/Vol] 140 mmol/L Normal 136-144 [facility] Comment on above: Order Comment: Speci men Type: BLOOD SPECIMENOrdering Facility: [facility] Address: [address] [place], [place] [address] Performed By: #### 2 4323-8, , 2776-08 ####[facility] LABCLIA [id number] [place] [address] [place] Urea nitrogen [Mass/Vol] 10 mg/dL Normal 7-21 [facility] Comment on above: Order Comment: Speci men Type: BLOOD SPECIMENOrdering Facility: [facility] Address: [address] [place], [place] [address] Performed By: #### 2 4323-8, , 2776-08 ####[facility] LABIA [id number] [place] [id number] [place] Magnesium SerPl-mCncon 04-13 Magnesium [Mass/Vol] 2.0 mg/dL Normal 1.7-2.3 [facility] Comment on above: Order Comment: Speci men Type: BLOOD SPECIMENOrdering Facility: [facility] Address: [address] Performed By: #### 2 4323-8, , 2776-08 ####[facility] LABCLIA [id number] [place] [address] [place] Phosphate SerPl-mCncon 04-13 Phosphate [Mass/Vol] 3.5 mg/dL Normal 2.7-4.8 [facility] Comment on above: Order Comment: Speci men Type: BLOOD SPECIMENOrdering Facility: [facility] Address: [address] Performed By: #### 2 4323-8, , 2776-08 ####[facility] LABCLIA [id number] [place] [address] [place] THERAPY NTon 04-13-2023 THERAPY NT Normal [facility] CBC panel Auto (Bld)on 04-12 Erythrocyte distribution width (RBC) [Ratio] 13.2 % Normal 11.5-15.0 [facility] Comment on above: Order Comment: Speci men Type: BLOOD SPECIMENOrdering Facility: [facility] Address: [address] [place], [place] [address] Performed By: #### 5 8410-2 ####[facility] LABCLIA [id number] [place] [address] [place] Hematocrit (Bld) [Volume fraction] 33.4 % Low 36.0-46.0 [facility] Comment on above: Order Comment: Speci men Type: BLOOD SPECIMENOrdering Facility: [facility] Address: [address] [place] [address] Performed By: #### 5 8410-2 ####[facility] LABCLIA [id number] [place] [address] [place] Hemoglobin (Bld) [Mass/Vol] 10.8 g/dL Low 11.5-15.5 [facility] Comment on above: Order Comment: Speci men Type: BLOOD SPECIMENOrdering Facility: [facility] Address: [address] [place] [address] Performed By: #### 5 8410-2 ####[facility] LABIA [id number] [address] [place] MCH (RBC) [Entitic mass] 32.8 pg Normal 26.0-34.0 [facility] Comment on above: Order Comment: Speci men Type: BLOOD SPECIMENOrdering Facility: [facility] Address: [address] [place] [address] Performed By: #### 5 8410-2 ####[facility] [id number] [address] [place] MCHC (RBC) [Mass/Vol] 32.3 g/dL Normal 30.5-36.0 [facility] Comment on above: Order Comment: Speci men Type: BLOOD SPECIMENOrdering Facility: [facility] Address: [address] [place] [address] Performed By: #### 5 8410-2 ####[facility] [id number] [address] [place] MCV (RBC) [Entitic vol] 101.5 fL High 80.0-100.0 [facility] Comment on above: Order Comment: Speci men Type: BLOOD SPECIMENOrdering Facility: [facility] Address: [address] Performed By: #### 5 8410-2 ####[facility] [id number] [address] [place] Nucleated RBC (Bld) [#/Vol] 10*3/uL Normal <0.01 [facility] Comment on above: Order Comment: Speci men Type: BLOOD SPECIMENOrdering Facility: [facility] Address: [address] [place], [place] [address] Performed By: #### 5 8410-2 ####[facility] LABCLIA [id number] [place] [address] [place] Platelet mean volume (Bld) [Entitic vol] 10.5 fL Normal 9.0-12.7 [facility] Comment on above: Order Comment: Speci men Type: BLOOD SPECIMENOrdering Facility: [facility] Address: [address] [place], [place] [address] Performed By: #### 5 8410-2 ####[facility] LABCLIA [id number] [place] [address] [place] Platelets (Bld) [#/Vol] 305 10*3/uL Normal 150-400 [facility] Comment on above: Order Comment: Speci men Type: BLOOD SPECIMENOrdering Facility: [facility] Address: [address] [place], [place] [address] Performed By: #### 5 8410-2 ####[facility] LABIA [id number] [place] [address] [place] RBC (Bld) [#/Vol] 3.29 10*6/uL Low 3.90-5.20 [facility] Comment on above: Order Comment: Speci men Type: BLOOD SPECIMENOrdering Facility: [facility] Address: [address] [place] [address] Performed By: #### 5 8410-2 ####[facility] LABCLIA [id number] [place] [address] [place] WBC (Bld) [#/Vol] 6.23 10*3/uL Normal 3.70-11.00 [facility] Comment on above: Order Comment: Speci men Type: BLOOD SPECIMENOrdering Facility: [facility] Address: [address] [place], [place] [id number] Performed By: #### 5 8410-2 ####[facility] LABCLIA [id number] [place] [address] [place] Comprehensive metabolic 2000 panelon 04-12-2023 Albumin [Mass/Vol] 3.3 g/dL Low 3.9-4.9 [facility] Comment on above: Order Comment: Speci men Type: BLOOD SPECIMENOrdering Facility: [facility] REHABILITATION Address: [address] [place] [address] Performed By: #### 1 9123-9, 2777, 03082-6 ####[facility] LABIA [id number] [place] [address] [place] ALP [Catalytic activity/Vol] 58 U/L Normal 34-123 [facility] Comment on above: Order Comment: Speci men Type: BLOOD SPECIMENOrdering Facility: [facility] Address: [address] [place] [address] Performed By: #### 1 9123-9, 2777, 72060-8 ####[facility] LABIA [id number] [place] [address] [place] ALT [Catalytic activity/Vol] 9 U/L Normal 7-38 [facility] Comment on above: Order Comment: Speci men Type: BLOOD SPECIMENOrdering Facility: [facility] Address: [address] [place] [address] Performed By: #### 1 9123-9, 27702-06, 14302-4 ####[facility] LABIA [id number] [place] [id number] [place] Anion gap [Moles/Vol] 12 mmol/L Normal 9-18 [facility] Comment on above: Order Comment: Speci men Type: BLOOD SPECIMENOrdering Facility: [facility] Address: [address] [place] [address] Performed By: #### 1 9123-9, 2777-, 84632-5 ####[facility] LABIA [id number] [place] [address] [place] AST [Catalytic activity/Vol] 17 U/L Normal 13-35 [facility] Comment on above: Order Comment: Speci men Type: BLOOD SPECIMENOrdering Facility: [facility] Address: [address] [place] [address] Performed By: #### 1 9123-9, 2777-1, 03133-8 ####[facility] LABCLIA [id number] [place] [address] [place] Bilirubin [Mass/Vol] 0.6 mg/dL Normal 0.2-1.3 [facility] Comment on above: Order Comment: Speci men Type: BLOOD SPECIMENOrdering Facility: [facility] Address: [address] [place] [address] Performed By: #### 1 9123-9, 27702-06, 22411-4 ####[facility] LABCLIA [id number] [place] [address] [place] Calcium [Mass/Vol] 8.7 mg/dL Normal 8.5-10.2 [facility] Comment on above: Order Comment: Speci men Type: BLOOD SPECIMENOrdering Facility: [facility] Address: [address] [place], [place] [address] Performed By: #### 1 9123-9, 27702-06, 64880-1 ####[facility] LABCLIA [id number] [place] [address] [place] Chloride [Moles/Vol] 101 mmol/L Normal 97-105 [facility] Comment on above: Order Comment: Speci men Type: BLOOD SPECIMENOrdering Facility: [facility] Address: [address] [place] [address] Performed By: #### 1 9123-9, 27702-06, 08367-7 ####[facility] LABCLIA [id number] [place] [address] [place] CO2 [Moles/Vol] 26 mmol/L Normal 22-30 [facility] Comment on above: Order Comment: Speci lori Type: BLOOD SPECIMENOrdering Facility: [facility] Address: [address] [place] [address] Performed By: #### 1 9123-9, 2777, 09094-7 ####[facility] LABCLIA [id number] [address] [place] Creatinine [Mass/Vol] 0.47 mg/dL Low 0.58-0.96 [facility] Comment on above: Order Comment: Speci men Type: BLOOD SPECIMENOrdering Facility: [facility] Address: [address] [place] [address] Performed By: #### 1 9123-9, 2776-08, ####[facility] LABCLIA [id number] [address] Creatinine and Glomerular filtration rate.predicted panel (S/P/Bld) 94 mL/min/1.73m??? Normal >=60 [facility] Comment on above: Order Comment: Pratibhai lori Type: BLOOD SPECIMENOrdering Facility: [facility] Address: [address] [place] [address] Result Comment: Marlyn mated Glomerular Filtration Rate [...] GFR. Performed By: #### 1 9123-9, 2776-08, 52547-2 ####[facility] LABCLIA [id number] [place] [address] [place] Glucose [Mass/Vol] 89 mg/dL Normal 74-99 [facility] Comment on above: Order Comment: Speci men Type: BLOOD SPECIMENOrdering Facility: [facility] Address: [address] [facility] [place] [address] Result Comment: The [place] Diabetes Association (ADA) provides guidance for cutoff [...] Standards of Medical Care in Diabetes 2016, [place] [employer]. Diabetes Care. 2016.39(Suppl 1). Performed By: #### 1 9123-9, 2777, ####[facility] LABCLIA [id number] [place] [address] [place] Potassium [Moles/Vol] 3.4 mmol/L Low 3.7-5.1 [facility] Comment on above: Order Comment: Speci men Type: BLOOD SPECIMENOrdering Facility: [facility] Address: [place] [address] Performed By: #### 1 9123-9, 2776-08, ####[facility] LABCLIA [id number] [place] [id number] [place] Protein [Mass/Vol] 6.1 g/dL Low 6.3-8.0 [facility] Comment on above: Order Comment: Speci men Type: BLOOD SPECIMENOrdering Facility: [facility] Address: [place] [address] Performed By: #### 1 9123-9, 2776-08, ####[facility] LABCLIA [id number] [place] [id number] [place] Sodium [Moles/Vol] 139 mmol/L Normal 136-144 [facility] Comment on above: Order Comment: Speci men Type: BLOOD SPECIMENOrdering Facility: [facility] Address: [address] Performed By: #### 1 9123-9, 2776-08, 26129-0 ####[facility] LABCLIA [id number] [place] [address] [place] [facility] Urea nitrogen [Mass/Vol] 7 mg/dL Normal 7-21 [facility] Comment on above: Order Comment: Speci men Type: BLOOD SPECIMENOrdering Facility: [facility] Address: [address] [place], [place] [address] Performed By: #### 1 9123-9, 2776-08, ####[facility] LABCLIA [id number] [address] [place] Magnesium SerPl-[place] Healthon 04-12 Magnesium [Mass/Vol] 2.0 mg/dL Normal 1.7-2.3 [facility] Comment on above: Order Comment: Speci men Type: BLOOD SPECIMENOrdering Facility: [facility] Address: [address] Performed By: #### 1 9123-9, 2776-08, ####[facility] LABCLIA [id number] [place] [address] [place] Phosphate SerPl-mCncon 04-12 Phosphate [Mass/Vol] 3.2 mg/dL Normal 2.7-4.8 [facility] Comment on above: Order Comment: Speci men Type: BLOOD SPECIMENOrdering Facility: [facility] Address: [place] [address] Performed By: #### 1 9123-9, 27702-06, ####[facility] LABCLIA [id number] [place] [id number] [place] THERAPY NTon 04-12-2023 THERAPY NT Normal [facility] CASE MANAGEMon 04-11-2023 CASE MANAGEM Normal [facility] CBC panel Auto (Bld)on 04-11 Erythrocyte distribution width (RBC) [Ratio] 13.2 % Normal 11.5-15.0 [facility] Comment on above: Order Comment: Speci men Type: BLOOD SPECIMENOrdering Facility: [facility] Address: [address] [place] [address] Performed By: #### 5 8410-2 ####[facility] LABIA [id number] [place] [address] [place] Hematocrit (Bld) [Volume fraction] 34.2 % Low 36.0-46.0 [facility] Comment on above: Order Comment: Speci men Type: BLOOD SPECIMENOrdering Facility: [facility] Address: [address] [place] [address] Performed By: #### 5 8410-2 ####[facility] LABIA [id number] [place] [address] [place] Hemoglobin (Bld) [Mass/Vol] 10.7 g/dL Low 11.5-15.5 [facility] Comment on above: Order Comment: Speci men Type: BLOOD SPECIMENOrdering Facility: [facility] Address: [address] [place] [address] Performed By: #### 5 8410-2 ####[facility] LABIA [id number] [place] [address] [place] MCH (RBC) [Entitic mass] 32.1 pg Normal 26.0-34.0 [facility] Comment on above: Order Comment: Speci men Type: BLOOD SPECIMENOrdering Facility: [facility] Address: [address] [place] [address] Performed By: #### 5 8410-2 ####[facility] LABIA [id number] [address] [place] MCHC (RBC) [Mass/Vol] 31.3 g/dL Normal 30.5-36.0 [facility] Comment on above: Order Comment: Speci men Type: BLOOD SPECIMENOrdering Facility: [facility] Address: [address] [place] [address] Performed By: #### 5 8410-2 ####[facility] LABIA [id number] [place] [address] [place] MCV (RBC) [Entitic vol] 102.7 fL High 80.0-100.0 [facility] Comment on above: Order Comment: Speci men Type: BLOOD SPECIMENOrdering Facility: [facility] Address: [address] [place], [place] [address] Performed By: #### 5 8410-2 ####[facility] LABIA [id number] [address] [place] Nucleated RBC (Bld) [#/Vol] 10*3/uL Normal <0.01 [facility] Comment on above: Order Comment: Speci men Type: BLOOD SPECIMENOrdering Facility: [facility] Address: [address] [place], [place] [address] Performed By: #### 5 8410-2 ####[facility] LABIA [id number] [place] [address] [place] Platelet mean volume (Bld) [Entitic vol] 10.5 fL Normal 9.0-12.7 [facility] Comment on above: Order Comment: Speci men Type: BLOOD SPECIMENOrdering Facility: [facility] Address: [address] [place], [place] [address] Performed By: #### 5 8410-2 ####[facility] LABCLIA [id number] [place] [address] [place] Platelets (Bld) [#/Vol] 267 10*3/uL Normal 150-400 [facility] Comment on above: Order Comment: Speci men Type: BLOOD SPECIMENOrdering Facility: [facility] Address: [address] [place] [address] Performed By: #### 5 8410-2 ####[facility] LABCLIA [id number] [place] [address] [place] RBC (Bld) [#/Vol] 3.33 10*6/uL Low 3.90-5.20 [facility] Comment on above: Order Comment: Speci men Type: BLOOD SPECIMENOrdering Facility: [facility] Address: [address] [place] [address] Performed By: #### 5 8410-2 ####[facility] LABCLIA [id number] [place] [address] [place] WBC (Bld) [#/Vol] 5.53 10*3/uL Normal 3.70-11.00 [facility] Comment on above: Order Comment: Speci men Type: BLOOD SPECIMENOrdering Facility: [facility] Address: [address] [place] [address] Performed By: #### 5 8410-2 ####[facility] LABCLIA [id number] [place] [address] [place] Comprehensive metabolic 2000 panelon 04-11-2023 Albumin [Mass/Vol] 3.3 g/dL Low 3.9-4.9 [facility] Comment on above: Order Comment: Speci men Type: BLOOD SPECIMENOrdering Facility: [facility] Address: [address] [place] [address] Performed By: #### 1 9123-9, 53572-4, 2777-1 ####[facility] LABCLIA [id number] [place] [address] [place] ALP [Catalytic activity/Vol] 59 U/L Normal 34-123 [facility] Comment on above: Order Comment: Speci men Type: BLOOD SPECIMENOrdering Facility: [facility] Address: [address] [place] [address] Performed By: #### 1 9123-9, 28418-0, 2777- ####[facility] LABCLIA [id number] [place] [address] [place] ALT [Catalytic activity/Vol] 9 U/L Normal 7-38 [facility] Comment on above: Order Comment: Speci men Type: BLOOD SPECIMENOrdering Facility: [facility] Address: [address] [place] [address] Performed By: #### 1 9123-9, 40559-7, 277- ####[facility] LABCLIA [id number] [place] [address] [place] Anion gap [Moles/Vol] 12 mmol/L Normal 9-18 [facility] Comment on above: Order Comment: Speci men Type: BLOOD SPECIMENOrdering Facility: [facility] Address: [address] [place] [address] Performed By: #### 1 9123-9, 20812-4, 277- ####[facility] LABCLIA [id number] [place] [address] [place] AST [Catalytic activity/Vol] 15 U/L Normal 13-35 [facility] Comment on above: Order Comment: Speci men Type: BLOOD SPECIMENOrdering Facility: [facility] Address: [address] [place] [address] Performed By: #### 1 9123-9, 84356-2, 2777- ####[facility] LABCLIA [id number] [place] [address] [place] Bilirubin [Mass/Vol] 0.6 mg/dL Normal 0.2-1.3 [facility] Comment on above: Order Comment: Speci men Type: BLOOD SPECIMENOrdering Facility: [facility] Address: [address] [place] [address] Performed By: #### 1 9123-9, 72100-5, 2777- ####[facility] LABCLIA [id number] [place] [address] [place] Calcium [Mass/Vol] 8.8 mg/dL Normal 8.5-10.2 [facility] Comment on above: Order Comment: Speci men Type: BLOOD SPECIMENOrdering Facility: [facility] Address: [address] [place] [address] Performed By: #### 1 9123-9, 83270-5, 277- ####[facility] LABCLIA [id number] [place] [address] [place] Chloride [Moles/Vol] 103 mmol/L Normal 97-105 [facility] Comment on above: Order Comment: Speci men Type: BLOOD SPECIMENOrdering Facility: [facility] Address: [address] [place] [address] Performed By: #### 1 9123-9, 74998-3, 27702-06 ####[facility] LABCLIA [id number] [place] [address] [place] CO2 [Moles/Vol] 25 mmol/L Normal 22-30 [facility] Comment on above: Order Comment: Speci men Type: BLOOD SPECIMENOrdering Facility: [facility] Address: [address] [place] [address] Performed By: #### 1 9123-9, 14405-0, 27702-06 ####[facility] LABCLIA [id number] [place] [address] [place] Creatinine [Mass/Vol] 0.46 mg/dL Low 0.58-0.96 [facility] Comment on above: Order Comment: Speci men Type: BLOOD SPECIMENOrdering Facility: [facility] Address: [address] [place] [address] Performed By: #### 1 9123-9, 47198-6, 2777 ####[facility] LABIA [id number] [place] [address] [place] [employer] [facility] [place] Creatinine and Glomerular filtration rate.predicted panel (S/P/Bld) 94 mL/min/1.73m??? Normal >=60 [facility] Comment on above: Order Comment: Zay sandoval Type: BLOOD SPECIMENOrdering Facility: [facility] Address: [address] [place] [address] Result Comment: Marlyn mated Glomerular Filtration Rate [...] actual GFR. Performed By: #### 1 9123-9, 61599-1, 277- ####[facility] LABIA [id number] [place] [address] [place] Glucose [Mass/Vol] 102 mg/dL High 74-99 [facility] Comment on above: Order Comment: Zay sandoval Type: BLOOD SPECIMENOrdering Facility: [facility] Address: [address] [place] [address] Result Comment: The [place] Diabetes Association (ADA) provides guidance for cutoff [...] Standards of Medical Care in Diabetes 2016, [place] Diabetes Association. Diabetes Care. 2016.39(Suppl 1). Performed By: #### 1 9123-9, 80332-5, 2777- ####[facility] LABCLIA [id number] [place] [address] [place] Potassium [Moles/Vol] 3.7 mmol/L Normal 3.7-5.1 [facility] Comment on above: Order Comment: Speci men Type: BLOOD SPECIMENOrdering Facility: [facility] Address: [address] Performed By: #### 1 9123-9, 52517-9, 2776- ####[facility] LABCLIA [id number] [place] [address] [place] Protein [Mass/Vol] 5.9 g/dL Low 6.3-8.0 [facility] Comment on above: Order Comment: Speci men Type: BLOOD SPECIMENOrdering Facility: [facility] Address: [address] Performed By: #### 1 9123-9, , 2776- ####[facility] LABCLIA [id number] [place] [address] [place] Sodium [Moles/Vol] 140 mmol/L Normal 136-144 [facility] Comment on above: Order Comment: Speci men Type: BLOOD SPECIMENOrdering Facility: [facility] Address: [address] Performed By: #### 1 9123-9, , 2776- ####[facility] LABCLIA [id number] [place] [address] [place] Urea nitrogen [Mass/Vol] 5 mg/dL Low 7-21 [facility] Comment on above: Order Comment: Speci men Type: BLOOD SPECIMENOrdering Facility: [facility] Address: [address] [place] [address] Performed By: #### 1 9123-9, 44806-5, 2777- ####[facility] LABCLIA [id number] [place] [address] [place] Magnesium SerPl-ncon 04-11 Magnesium [Mass/Vol] 1.9 mg/dL Normal 1.7-2.3 [facility] Comment on above: Order Comment: Speci men Type: BLOOD SPECIMENOrdering Facility: [facility] Address: [address] [place] [address] Performed By: #### 1 9123-9, 96425-5, 2777-1 ####[facility] LABIA [id number] [place] [address] [place] Phosphate SerPl-mCncon 04-11 Phosphate [Mass/Vol] 3.3 mg/dL Normal 2.7-4.8 [facility] Comment on above: Order Comment: Speci men Type: BLOOD SPECIMENOrdering Facility: [facility] Address: [address] [place] [address] Performed By: #### 1 9123-9, 15814-9, 2777-1 ####[facility] LABIA [id number] [place] [address] [place] CBC panel Auto (Bld)on 04-10 Erythrocyte distribution width (RBC) [Ratio] 13.6 % Normal 11.5-15.0 [facility] Comment on above: Order Comment: Speci men Type: BLOOD SPECIMENOrdering Facility: [facility] Address: [address] [place], [place] [address] Performed By: #### 5 8410-2 ####[facility] LABIA [id number] [place] [address] [place] Hematocrit (Bld) [Volume fraction] 31.1 % Low 36.0-46.0 [facility] Comment on above: Order Comment: Speci men Type: BLOOD SPECIMENOrdering Facility: [facility] Address: [address] [place] [address] Performed By: #### 5 8410-2 ####[facility] LABIA [id number] [place] [address] [place] Hemoglobin (Bld) [Mass/Vol] 9.8 g/dL Low 11.5-15.5 [facility] Comment on above: Order Comment: Speci men Type: BLOOD SPECIMENOrdering Facility: [facility] Address: [address] [place] [address] Performed By: #### 5 8410-2 ####[facility] [id number] [place] [address] [place] MCH (RBC) [Entitic mass] 32.5 pg Normal 26.0-34.0 [facility] Comment on above: Order Comment: Speci men Type: BLOOD SPECIMENOrdering Facility: [facility] Address: [address] [place] [address] Performed By: #### 5 8410-2 ####[facility] [id number] [address] [place] MCHC (RBC) [Mass/Vol] 31.5 g/dL Normal 30.5-36.0 [facility] Comment on above: Order Comment: Speci men Type: BLOOD SPECIMENOrdering Facility: [facility] Address: [address] [place] [address] Performed By: #### 5 8410-2 ####[facility] [id number] [place] [address] [place] MCV (RBC) [Entitic vol] 103.0 fL High 80.0-100.0 [facility] Comment on above: Order Comment: Speci men Type: BLOOD SPECIMENOrdering Facility: [facility] Address: [address] [place] [address] Performed By: #### 5 8410-2 ####[facility] [id number] [address] [place] Nucleated RBC (Bld) [#/Vol] 10*3/uL Normal <0.01 [facility] Comment on above: Order Comment: Speci men Type: BLOOD SPECIMENOrdering Facility: [facility] Address: [address] [place], [place] [address] Performed By: #### 5 8410-2 ####[facility] LABCLIA [id number] [place] [address] [place] Platelet mean volume (Bld) [Entitic vol] 10.5 fL Normal 9.0-12.7 [facility] Comment on above: Order Comment: Speci men Type: BLOOD SPECIMENOrdering Facility: [facility] Address: [address] [place], [place] [address] Performed By: #### 5 8410-2 ####[facility] LABCLIA [id number] [place] [address] [place] Platelets (Bld) [#/Vol] 231 10*3/uL Normal 150-400 [facility] Comment on above: Order Comment: Speci men Type: BLOOD SPECIMENOrdering Facility: [facility] Address: [address] [place], [place] [address] Performed By: #### 5 8410-2 ####[facility] LABCLIA [id number] [place] [address] [place] RBC (Bld) [#/Vol] 3.02 10*6/uL Low 3.90-5.20 [facility] Comment on above: Order Comment: Speci men Type: BLOOD SPECIMENOrdering Facility: [facility] Address: [address] [place] [address] Performed By: #### 5 8410-2 ####[facility] LABCLIA [id number] [place] [address] [place] WBC (Bld) [#/Vol] 6.95 10*3/uL Normal 3.70-11.00 [facility] Comment on above: Order Comment: Speci men Type: BLOOD SPECIMENOrdering Facility: [facility] Address: [address] [place], [place] [address] Performed By: #### 5 8410-2 ####[facility] LABCLIA [id number] [place] [address] [place] CT CHEST W IVCON PEon 2022 CT CHEST W IVCON PE Normal [facility] Comprehensive metabolic 2000 panelon 04-10-2023 Albumin [Mass/Vol] 3.2 g/dL Low 3.9-4.9 [facility] Comment on above: Order Comment: Speci men Type: BLOOD SPECIMENOrdering Facility: [facility] Address: [address] [place] [address] Performed By: #### 2 4323-8, , 2776-08 ####[facility] LABCLIA [id number] [place] [address] [place] ALP [Catalytic activity/Vol] 51 U/L Normal 34-123 [facility] Comment on above: Order Comment: Speci men Type: BLOOD SPECIMENOrdering Facility: [facility] Address: [address] [place], [place] [id number] Performed By: #### 2 4323-8, , 2776-08 ####[facility] LABCLIA [id number] [place] [address] [place] ALT [Catalytic activity/Vol] 9 U/L Normal 7-38 [facility] Comment on above: Order Comment: Speci men Type: BLOOD SPECIMENOrdering Facility: [facility] Address: [address] [place], [place] [id number] Performed By: #### 2 4323-8, , 2776-08 ####[facility] LABCLIA [id number] [place] [address] [place] Anion gap [Moles/Vol] 11 mmol/L Normal 9-18 [facility] Comment on above: Order Comment: Speci men Type: BLOOD SPECIMENOrdering Facility: [facility] [facility] Address: [address] Performed By: #### 2 4323-8, , 2776-08 ####[facility] LABCLIA [id number] [place] [address] [place] AST [Catalytic activity/Vol] 19 U/L Normal 13-35 [facility] Comment on above: Order Comment: Speci men Type: BLOOD SPECIMENOrdering Facility: [facility] Address: [address] [place] [address] Performed By: #### 2 4323-8, , 2776-08 ####[facility] LABCLIA [id number] [place] [address] [place] Bilirubin [Mass/Vol] 0.6 mg/dL Normal 0.2-1.3 [facility] Comment on above: Order Comment: Speci men Type: BLOOD SPECIMENOrdering Facility: [facility] Address: [address] [place] [address] Performed By: #### 2 4323-8, , 2776-08 ####[facility] LABCLIA [id number] [place] [address] [place] Calcium [Mass/Vol] 8.9 mg/dL Normal 8.5-10.2 [facility] Comment on above: Order Comment: Speci men Type: BLOOD SPECIMENOrdering Facility: [facility] Address: [address] [place], [place] [address] Performed By: #### 2 4323-8, , 2776-08 ####[facility] LABCLIA [id number] [place] [address] [place] Chloride [Moles/Vol] 102 mmol/L Normal 97-105 [facility] Comment on above: Order Comment: Speci men Type: BLOOD SPECIMENOrdering Facility: [facility] Address: [address] [place] [address] Performed By: #### 2 4323-8, , 2776-08 ####[facility] LABCLIA [id number] [place] [address] [place] CO2 [Moles/Vol] 26 mmol/L Normal 22-30 [facility] Comment on above: Order Comment: Speci men Type: BLOOD SPECIMENOrdering Facility: [facility] Address: [address] [place] [address] Performed By: #### 2 4323-8, , 2776-08 ####[facility] LABIA [id number] [place] [address] [place] Creatinine [Mass/Vol] 0.54 mg/dL Low 0.58-0.96 [facility] Comment on above: Order Comment: Speci men Type: BLOOD SPECIMENOrdering Facility: [facility] Address: [address] [place] [address] Performed By: #### 2 4323-8, , 2776-08 ####[facility] LABIA [id number] [place] [address] [place] Creatinine and Glomerular filtration rate.predicted panel (S/P/Bld) 91 mL/min/1.73m??? Normal >=60 [facility] Comment on above: Order Comment: Speci men Type: BLOOD SPECIMENOrdering Facility: [facility] Address: [address] [place] [address] Result Comment: Marlyn mated Glomerular Filtration Rate [...] Performed By: #### 2 4323-8, , 2776-08 ####[facility] LABCLIA [id number] [place] [id number] [place] Glucose [Mass/Vol] 107 mg/dL High 74-99 [facility] Comment on above: Order Comment: Speci men Type: BLOOD SPECIMENOrdering Facility: [facility] Address: [address] [place], [place] [address] Result Comment: The [place] Diabetes [employer] (ADA) provides guidance for cutoff [...] Standards of Medical Care in Diabetes 2016, [place] [employer]. Diabetes Care. 2016.39(Suppl 1). Performed By: #### 2 4323-8, , 2776-08 ####[facility] LABCLIA [id number] [place] [address] [place] Potassium [Moles/Vol] 3.7 mmol/L Normal 3.7-5.1 [facility] Comment on above: Order Comment: Speci men Type: BLOOD SPECIMENOrdering Facility: [facility] Address: [address] [place] [address] Performed By: #### 2 4323-8, , 2776-08 ####[facility] LABCLIA [id number] [place] [address] [place] Protein [Mass/Vol] 6.1 g/dL Low 6.3-8.0 [facility] Comment on above: Order Comment: Speci men Type: BLOOD SPECIMENOrdering Facility: [facility] Address: [address] [place] [address] Performed By: #### 2 4323-8, 96032-2, 27771 ####[facility] LABIA [id number] [place] [address] [place] Sodium [Moles/Vol] 139 mmol/L Normal 136-144 [facility] Comment on above: Order Comment: Speci men Type: BLOOD SPECIMENOrdering Facility: [facility] Address: [address] [place] [address] Performed By: #### 2 4323-8, 72202-9, 27702-06 ####[facility] LABCLIA [id number] [place] [address] [place] Urea nitrogen [Mass/Vol] 6 mg/dL Low 7-21 [facility] Comment on above: Order Comment: Speci men Type: BLOOD SPECIMENOrdering Facility: [facility] Address: [address] [place] [address] Performed By: #### 2 4323-8, 27622-4, 27702-06 ####[facility] LABIA [id number] [place] [address] [place] Magnesium SerPl-mCncon 04-10 Magnesium [Mass/Vol] 1.9 mg/dL Normal 1.7-2.3 [facility] Comment on above: Order Comment: Speci men Type: BLOOD SPECIMENOrdering Facility: [facility] Address: [address] [place], [place] [address] Performed By: #### 2 4323-8, 37564-7, 2777 ####[facility] LABIA [id number] [place] [address] [place] Phosphate SerPl-mCncon 04-10 Phosphate [Mass/Vol] 2.5 mg/dL Low 2.7-4.8 [facility] Comment on above: Order Comment: Speci men Type: BLOOD SPECIMENOrdering Facility: [facility] Address: [address] [place] [address] Performed By: #### 2 4323-8, 62724-0, 2777-1 ####[facility] LABCLIA [id number] [place] [address] [place] ALLIED HEALTHon 04-09-2023 ALLIED HEALTH Normal [facility] CASE MANAGEMon 04-09-2023 CASE MANAGEM Normal [facility] CBC panel Auto (Bld)on 04-09 Erythrocyte distribution width (RBC) [Ratio] 13.7 % Normal 11.5-15.0 [facility] Comment on above: Order Comment: Speci men Type: BLOOD SPECIMENOrdering Facility: [facility] Address: [address] [place] [address] Performed By: #### 5 8410-2 ####[facility] LABCLIA [id number] [place] [address] [place] Hematocrit (Bld) [Volume fraction] 33.0 % Low 36.0-46.0 [facility] Comment on above: Order Comment: Speci men Type: BLOOD SPECIMENOrdering Facility: [facility] Address: [address] [place] [address] Performed By: #### 5 8410-2 ####[facility] LABCLIA [id number] [place] [address] [place] Hemoglobin (Bld) [Mass/Vol] 10.5 g/dL Low 11.5-15.5 [facility] Comment on above: Order Comment: Speci men Type: BLOOD SPECIMENOrdering Facility: [facility] Address: [address] [place] [address] Performed By: #### 5 8410-2 ####[facility] LABCLIA [id number] [place] [address] [place] MCH (RBC) [Entitic mass] 32.4 pg Normal 26.0-34.0 [facility] Comment on above: Order Comment: Speci men Type: BLOOD SPECIMENOrdering Facility: [facility] Address: [address] Performed By: #### 5 8410-2 ####[facility] LABIA [id number] [place] [address] [place] MCHC (RBC) [Mass/Vol] 31.8 g/dL Normal 30.5-36.0 [facility] Comment on above: Order Comment: Speci men Type: BLOOD SPECIMENOrdering Facility: [facility] Address: [address] Performed By: #### 5 8410-2 ####[facility] LABIA [id number] [place] [address] [place] MCV (RBC) [Entitic vol] 101.9 fL High 80.0-100.0 [facility] Comment on above: Order Comment: Speci men Type: BLOOD SPECIMENOrdering Facility: [facility] Address: [address] [place], [place] [address] Performed By: #### 5 8410-2 ####[facility] LABIA [id number] [place] [address] [place] Nucleated RBC (Bld) [#/Vol] 10*3/uL Normal <0.01 [facility] Comment on above: Order Comment: Speci men Type: BLOOD SPECIMENOrdering Facility: [facility] Address: [address] [place] [address] Performed By: #### 5 8410-2 ####[facility] LABIA [id number] [place] [address] [place] Platelet mean volume (Bld) [Entitic vol] 10.3 fL Normal 9.0-12.7 [facility] Comment on above: Order Comment: Speci men Type: BLOOD SPECIMENOrdering Facility: [facility] Address: [address] [place], [place] [address] Performed By: #### 5 8410-2 ####[facility] LABIA [id number] [place] [address] [place] Platelets (Bld) [#/Vol] 221 10*3/uL Normal 150-400 [facility] Comment on above: Order Comment: Speci men Type: BLOOD SPECIMENOrdering Facility: [facility] Address: [address] [place], [place] [address] Performed By: #### 5 8410-2 ####[facility] LABIA [id number] [place] [address] [place] RBC (Bld) [#/Vol] 3.24 10*6/uL Low 3.90-5.20 [facility] Comment on above: Order Comment: Speci men Type: BLOOD SPECIMENOrdering Facility: [facility] Address: [address] [place], [place] [address] Performed By: #### 5 8410-2 ####[facility] [id number] [place] [address] [place] WBC (Bld) [#/Vol] 6.76 10*3/uL Normal 3.70-11.00 [facility] Comment on above: Order Comment: Speci men Type: BLOOD SPECIMENOrdering Facility: [facility] Address: [address] [place], [place] [address] Performed By: #### 5 8410-2 ####[facility] [id number] [place] [address] [place] CNPNon 04-09-2023 CNPN Normal [facility] Comprehensive metabolic 2000 panelon 04-09-2023 Albumin [Mass/Vol] 3.3 g/dL Low 3.9-4.9 [facility] Comment on above: Order Comment: Speci men Type: BLOOD SPECIMENOrdering Facility: [facility] Address: [address] [place], [place] [address] Performed By: #### 2 4323-8, 71319-8, 2776- ####[facility] LABCLIA [id number] [place] [address] [place] ALP [Catalytic activity/Vol] 50 U/L Normal 34-123 [facility] Comment on above: Order Comment: Speci men Type: BLOOD SPECIMENOrdering Facility: [facility] Address: [address] Performed By: #### 2 4323-8, , 2776-08 ####[facility] LABCLIA [id number] [address] [place] ALT [Catalytic activity/Vol] 9 U/L Normal 7-38 [facility] Comment on above: Order Comment: Speci men Type: BLOOD SPECIMENOrdering Facility: [facility] Address: [address] [place], [place] [address] Performed By: #### 2 432-8, , 2776-08 ####[facility] LABCLIA [id number] [place] [address] [place] Anion gap [Moles/Vol] 10 mmol/L Normal 9-18 [facility] Comment on above: Order Comment: Speci men Type: BLOOD SPECIMENOrdering Facility: [facility] Address: [address] [place] [address] Performed By: #### 2 4323-8, , 2776-08 ####[facility] LABCLIA [id number] [place] [address] [place] AST [Catalytic activity/Vol] 17 U/L Normal 13-35 [facility] Comment on above: Order Comment: Speci men Type: BLOOD SPECIMENOrdering Facility: [facility] Address: [address] [place], [place] [address] Performed By: #### 2 4323-8, , 2776-1 ####[facility] LABCLIA [id number] [place] [address] [place] Bilirubin [Mass/Vol] 0.7 mg/dL Normal 0.2-1.3 [facility] Comment on above: Order Comment: Speci men Type: BLOOD SPECIMENOrdering Facility: [facility] Address: [address] [place], [place] [address] Performed By: #### 2 4323-8, , 2776-08 ####[facility] LABCLIA [id number] [place] [address] [place] Calcium [Mass/Vol] 8.7 mg/dL Normal 8.5-10.2 [facility] Comment on above: Order Comment: Speci men Type: BLOOD SPECIMENOrdering Facility: [facility] Address: [address] [place] [address] Performed By: #### 2 4323-8, , 2776-08 ####[facility] LABCLIA [id number] [place] [address] [place] Chloride [Moles/Vol] 105 mmol/L Normal 97-105 [facility] Comment on above: Order Comment: Speci men Type: BLOOD SPECIMENOrdering Facility: [facility] Address: [address] Performed By: #### 2 4323-8, , 2776-08 ####[facility] LABCLIA [id number] [place] [id number] [place] CO2 [Moles/Vol] 26 mmol/L Normal 22-30 [facility] Comment on above: Order Comment: Speci men Type: BLOOD SPECIMENOrdering Facility: [facility] Address: [address] Performed By: #### 2 4323-8, , 2776-08 ####[facility] LABCLIA [id number] [address] STATES OF [facility] Creatinine [Mass/Vol] 0.53 mg/dL Low 0.58-0.96 [facility] Comment on above: Order Comment: Zay sandoval Type: BLOOD SPECIMENOrdering Facility: [facility] Address: [address] [place] [address] Performed By: #### 2 4323-8, , 2776-08 ####[facility] LABIA [id number] [address] Creatinine and Glomerular filtration rate.predicted panel (S/P/Bld) 91 mL/min/1.73m??? Normal >=60 [facility] Comment on above: Order Comment: Zay sandoval Type: BLOOD SPECIMENOrdering Facility: [facility] Address: [address] [place] [address] Result Comment: Marlyn mated Glomerular Filtration Rate [...] Performed By: #### 2 4323-8, , 2776-08 ####[facility] LABIA [id number] [place] [address] [place] Glucose [Mass/Vol] 98 mg/dL Normal 74-99 [facility] Comment on above: Order Comment: Zay sandoval Type: BLOOD SPECIMENOrdering Facility: [facility] Address: [address] [place] [address] Result Comment: The [place] Diabetes Association (ADA) provides guidance for cutoff [...] Standards of Medical Care in Diabetes 2016, [place] [employer]. Diabetes Care. 2016.39(Suppl 1). Performed By: #### 2 4323-8, , 2776-08 ####[facility] LABCLIA [id number] [place] [address] [place] Potassium [Moles/Vol] 3.8 mmol/L Normal 3.7-5.1 [facility] Comment on above: Order Comment: Speci men Type: BLOOD SPECIMENOrdering Facility: [facility] Address: [address] [place] [address] Performed By: #### 2 4323-8, , 2776-08 ####[facility] LABCLIA [id number] [place] [address] [place] Protein [Mass/Vol] 5.8 g/dL Low 6.3-8.0 [facility] Comment on above: Order Comment: Speci men Type: BLOOD SPECIMENOrdering Facility: [facility] Address: [address] Performed By: #### 2 4323-8, , 2776-08 ####[facility] LABCLIA [id number] [place] [address] [place] Sodium [Moles/Vol] 141 mmol/L Normal 136-144 [facility] Comment on above: Order Comment: Speci men Type: BLOOD SPECIMENOrdering Facility: [facility] Address: [address] Performed By: #### 2 4323-8, , 2776-08 ####[facility] LABCLIA [id number] [place] [id number] [facility] [place] Urea nitrogen [Mass/Vol] 7 mg/dL Normal 7-21 [facility] Comment on above: Order Comment: Speci men Type: BLOOD SPECIMENOrdering Facility: [facility] Address: [address] [place] [address] Performed By: #### 2 4323-8, 72392-0, 2776- ####[facility] LABCLIA [id number] [place] [address] [place] Magnesium SerPl-ncon 04-09 Magnesium [Mass/Vol] 1.9 mg/dL Normal 1.7-2.3 [facility] Comment on above: Order Comment: Speci men Type: BLOOD SPECIMENOrdering Facility: [facility] Address: [address] [place] [address] Performed By: #### 2 4323-8, , 2776-08 ####[facility] LABCLIA [id number] [place] [address] [place] Phosphate SerPl-mCncon 04-09 Phosphate [Mass/Vol] 2.4 mg/dL Low 2.7-4.8 [facility] Comment on above: Order Comment: Speci men Type: BLOOD SPECIMENOrdering Facility: [facility] Address: [address] [place] [address] Performed By: #### 2 4323-8, , 2776-08 ####[facility] LABIA [id number] [place] [id number] [place] THERAPY NTon 04-09-2023 THERAPY NT Normal [facility] THERAPY NT Normal [facility] CASE MGT INIT ASSESon 2022 CASE MGT INIT ASSES Normal [facility] CBC panel Auto (Bld)on 04-08 Erythrocyte distribution width (RBC) [Ratio] 13.8 % Normal 11.5-15.0 [facility] Comment on above: Order Comment: Speci men Type: BLOOD SPECIMENOrdering Facility: [facility] Address: [address] [place] [address] Performed By: #### 5 8410-2 ####[facility] LABIA [id number] [address] [place] Hematocrit (Bld) [Volume fraction] 36.0 % Normal 36.0-46.0 [facility] Comment on above: Order Comment: Speci men Type: BLOOD SPECIMENOrdering Facility: [facility] Address: [address] [place] [address] Performed By: #### 5 8410-2 ####[facility] LABIA [id number] [address] [place] Hemoglobin (Bld) [Mass/Vol] 11.8 g/dL Normal 11.5-15.5 [facility] Comment on above: Order Comment: Speci men Type: BLOOD SPECIMENOrdering Facility: [facility] Address: [address] Performed By: #### 5 8410-2 ####[facility] LABIA [id number] [address] [place] MCH (RBC) [Entitic mass] 32.4 pg Normal 26.0-34.0 [facility] Comment on above: Order Comment: Speci men Type: BLOOD SPECIMENOrdering Facility: [facility] Address: [address] Performed By: #### 5 8410-2 ####[facility] LABIA [id number] [place] [address] [place] MCHC (RBC) [Mass/Vol] 32.8 g/dL Normal 30.5-36.0 [facility] Comment on above: Order Comment: Speci men Type: BLOOD SPECIMENOrdering Facility: [facility] Address: [address] Performed By: #### 5 8410-2 ####[facility] LABIA [id number] [place] [address] [place] MCV (RBC) [Entitic vol] 98.9 fL Normal 80.0-100.0 [facility] Comment on above: Order Comment: Speci men Type: BLOOD SPECIMENOrdering Facility: [facility] Address: [address] [place], [place] [address] Performed By: #### 5 8410-2 ####[facility] LABIA [id number] [place] [address] [place] Nucleated RBC (Bld) [#/Vol] 10*3/uL Normal <0.01 [facility] Comment on above: Order Comment: Speci men Type: BLOOD SPECIMENOrdering Facility: [facility] Address: [address] [place], [place] [address] Performed By: #### 5 8410-2 ####[facility] [id number] [place] [address] [place] Platelet mean volume (Bld) [Entitic vol] 9.6 fL Normal 9.0-12.7 [facility] Comment on above: Order Comment: Speci men Type: BLOOD SPECIMENOrdering Facility: [facility] Address: [address] [place], [place] [address] Performed By: #### 5 8410-2 ####[facility] [id number] [place] [address] [place] Platelets (Bld) [#/Vol] 264 10*3/uL Normal 150-400 [facility] Comment on above: Order Comment: Speci men Type: BLOOD SPECIMENOrdering Facility: [facility] Address: [address] [place], [place] [address] Performed By: #### 5 8410-2 ####[facility] LABIA [id number] [place] [address] [place] RBC (Bld) [#/Vol] 3.64 10*6/uL Low 3.90-5.20 [facility] Comment on above: Order Comment: Speci men Type: BLOOD SPECIMENOrdering Facility: [facility] Address: [address] [place] [address] Performed By: #### 5 8410-2 ####[facility] LABCLIA [id number] [place] [address] [place] WBC (Bld) [#/Vol] 8.97 10*3/uL Normal 3.70-11.00 [facility] Comment on above: Order Comment: Speci men Type: BLOOD SPECIMENOrdering Facility: [facility] Address: [address] [place] [address] Performed By: #### 5 8410-2 ####[facility] LABCLIA [id number] [place] [address] [place] Erythrocyte distribution width (RBC) [Ratio] 14.0 % Normal 11.5-15.0 [facility] Comment on above: Order Comment: Speci men Type: BLOOD SPECIMENOrdering Facility: [facility] Address: [address] [place] [address] Performed By: #### 5 8410-2 ####[facility] LABCLIA [id number] [place] [address] [place] Hematocrit (Bld) [Volume fraction] 35.4 % Low 36.0-46.0 [facility] Comment on above: Order Comment: Speci men Type: BLOOD SPECIMENOrdering Facility: [facility] Address: [address] [place], [place] [address] Performed By: #### 5 8410-2 ####[facility] LABCLIA [id number] [place] [address] [place] Hemoglobin (Bld) [Mass/Vol] 11.7 g/dL Normal 11.5-15.5 [facility] Comment on above: Order Comment: Speci men Type: BLOOD SPECIMENOrdering Facility: [facility] Address: [address] Performed By: #### 5 8410-2 ####[facility] [id number] [address] [place] MCH (RBC) [Entitic mass] 33.2 pg Normal 26.0-34.0 [facility] Comment on above: Order Comment: Speci men Type: BLOOD SPECIMENOrdering Facility: [facility] Address: [address] Performed By: #### 5 8410-2 ####[facility] [id number] [address] [place] MCHC (RBC) [Mass/Vol] 33.1 g/dL Normal 30.5-36.0 [facility] Comment on above: Order Comment: Speci men Type: BLOOD SPECIMENOrdering Facility: [facility] Address: [address] Performed By: #### 5 8410-2 ####[facility] [id number] [address] [place] MCV (RBC) [Entitic vol] 100.6 fL High 80.0-100.0 [facility] Comment on above: Order Comment: Speci men Type: BLOOD SPECIMENOrdering Facility: [facility] Address: [address] Performed By: #### 5 8410-2 ####[facility] [id number] [address] [place] Nucleated RBC (Bld) [#/Vol] 10*3/uL Normal <0.01 [facility] Comment on above: Order Comment: Speci men Type: BLOOD SPECIMENOrdering Facility: [facility] Address: [address] [place], [place] [address] Performed By: #### 5 8410-2 ####[facility] LABIA [id number] [place] [address] [place] Platelet mean volume (Bld) [Entitic vol] 10.0 fL Normal 9.0-12.7 [facility] Comment on above: Order Comment: Speci men Type: BLOOD SPECIMENOrdering Facility: [facility] Address: [address] [place] [address] Performed By: #### 5 8410-2 ####[facility] LABIA [id number] [place] [address] [place] Platelets (Bld) [#/Vol] 277 10*3/uL Normal 150-400 [facility] Comment on above: Order Comment: Speci men Type: BLOOD SPECIMENOrdering Facility: [facility] Address: [address] [place] [address] Performed By: #### 5 8410-2 ####[facility] LABIA [id number] [place] [address] [place] RBC (Bld) [#/Vol] 3.52 10*6/uL Low 3.90-5.20 [facility] Comment on above: Order Comment: Speci men Type: BLOOD SPECIMENOrdering Facility: [facility] Address: [address] [place] [address] Performed By: #### 5 8410-2 ####[facility] LABIA [id number] [place] [address] [place] WBC (Bld) [#/Vol] 9.47 10*3/uL Normal 3.70-11.00 [facility] Comment on above: Order Comment: Speci men Type: BLOOD SPECIMENOrdering Facility: [facility] Address: [address] [place] [phone] Performed By: #### 5 8410-2 ####[facility] LABIA [id number] [place] [address] [place] Comprehensive metabolic 2000 panelon 04-08-2023 Albumin [Mass/Vol] 3.7 g/dL Low 3.9-4.9 [facility] Comment on above: Order Comment: Speci men Type: BLOOD SPECIMENOrdering Facility: [facility] Address: [address] [place] [address] Performed By: #### 2 4323-8, 2777-, ####[facility] LABCLIA [id number] [place] [address] [place] ALP [Catalytic activity/Vol] 58 U/L Normal 34-123 [facility] Comment on above: Order Comment: Speci men Type: BLOOD SPECIMENOrdering Facility: [facility] Address: [address] [place] [address] Performed By: #### 2 4323-8, 27702-06, ####[facility] LABIA [id number] [address] [place] ALT [Catalytic activity/Vol] 9 U/L Normal 7-38 [facility] Comment on above: Order Comment: Speci men Type: BLOOD SPECIMENOrdering Facility: [facility] Address: [address] [place] [address] Performed By: #### 2 4323-8, 2777, ####[facility] LABCLIA [id number] [place] [id number] [place] Anion gap [Moles/Vol] 16 mmol/L Normal 9-18 [facility] Comment on above: Order Comment: Speci men Type: BLOOD SPECIMENOrdering Facility: [facility] Address: [address] [place] [address] Performed By: #### 2 4323-8, 2777-1, 53510-7 ####[facility] LABCLIA [id number] [place] [id number] [place] AST [Catalytic activity/Vol] 19 U/L Normal 13-35 [facility] Comment on above: Order Comment: Speci men Type: BLOOD SPECIMENOrdering Facility: [facility] Address: [address] [place] [address] Performed By: #### 2 4323-8, 27702-06, ####[facility] LABCLIA [id number] [place] [address] [place] Bilirubin [Mass/Vol] 0.6 mg/dL Normal 0.2-1.3 [facility] Comment on above: Order Comment: Speci men Type: BLOOD SPECIMENOrdering Facility: [facility] Address: [address] [place] [address] Performed By: #### 2 4323-8, 2776-08, ####[facility] LABCLIA [id number] [place] [address] [place] Calcium [Mass/Vol] 9.0 mg/dL Normal 8.5-10.2 [facility] Comment on above: Order Comment: Speci men Type: BLOOD SPECIMENOrdering Facility: [facility] Address: [address] [place] [address] Performed By: #### 2 4323-8, 2776-08, ####[facility] LABCLIA [id number] [place] [address] [place] Chloride [Moles/Vol] 103 mmol/L Normal 97-105 [facility] Comment on above: Order Comment: Speci men Type: BLOOD SPECIMENOrdering Facility: [facility] Address: [address] [place] [address] Performed By: #### 2 4323-8, 2776-08, ####[facility] LABCLIA [id number] [place] [id number] [place] CO2 [Moles/Vol] 20 mmol/L Low 22-30 [facility] Comment on above: Order Comment: Speci men Type: BLOOD SPECIMENOrdering Facility: [facility] Address: [address] [place] [address] Performed By: #### 2 4323-8, 27702-06, ####[facility] LABCLIA [id number] [place] [address] [place] Creatinine [Mass/Vol] 0.56 mg/dL Low 0.58-0.96 [facility] Comment on above: Order Comment: Speci men Type: BLOOD SPECIMENOrdering Facility: [facility] Address: [address] [place] [address] Performed By: #### 2 4323-8, 2776-08, ####[facility] LABCLIA [id number] [place] [address] [place] Creatinine and Glomerular filtration rate.predicted panel (S/P/Bld) 90 mL/min/1.73m??? Normal >=60 [facility] Comment on above: Order Comment: Zay sandoval Type: BLOOD SPECIMENOrdering Facility: [facility] Address: [address] [place] [address] Result Comment: Marlyn mated Glomerular Filtration Rate [...] GFR. Performed By: #### 2 4323-8, 2776-08, ####[facility] LABCLIA [id number] [place] [address] [place] Glucose [Mass/Vol] 132 mg/dL High 74-99 [facility] Comment on above: Order Comment: Speci men Type: BLOOD SPECIMENOrdering Facility: [facility] Address: [address] [place], [place] [address] [address] Result Comment: The [place] Diabetes Association (ADA) provides guidance for cutoff [...] Standards of Medical Care in Diabetes 2016, [place] Diabetes Association. Diabetes Care. 2016.39(Suppl 1). Performed By: #### 2 4323-8, 2776-08, ####[facility] LABCLIA [id number] [place] [address] [place] Potassium [Moles/Vol] 4.1 mmol/L Normal 3.7-5.1 [facility] Comment on above: Order Comment: Speci men Type: BLOOD SPECIMENOrdering Facility: [facility] Address: [place] [id number] Performed By: #### 2 4323-8, 2776-08, ####[facility] LABCLIA [id number] [place] [address] [place] Protein [Mass/Vol] 6.2 g/dL Low 6.3-8.0 [facility] Comment on above: Order Comment: Speci men Type: BLOOD SPECIMENOrdering Facility: [facility] Address: [address] [place] [address] Performed By: #### 2 4323-8, 2776-08, ####[facility] LABCLIA [id number] [address] [address] [place] Sodium [Moles/Vol] 139 mmol/L Normal 136-144 [facility] Comment on above: Order Comment: Speci men Type: BLOOD SPECIMENOrdering Facility: [facility] Address: [address] Performed By: #### 2 4323-8, 2776-08, ####[facility] LABCLIA [id number] [place] [address] [place] Urea nitrogen [Mass/Vol] 9 mg/dL Normal 7-21 [facility] Comment on above: Order Comment: Speci men Type: BLOOD SPECIMENOrdering Facility: [facility] Address: [address] [place], [place] [address] Performed By: #### 2 4323-8, 2776-08, ####[facility] LABCLIA [id number] [place] [address] [place] Magnesium SerPl-ncon 04-08 Magnesium [Mass/Vol] 1.9 mg/dL Normal 1.7-2.3 [facility] Comment on above: Order Comment: Speci men Type: BLOOD SPECIMENOrdering Facility: [facility] Address: [address] [place], [place] [address] Performed By: #### 2 4323-8, 2776-08, ####[facility] LABCLIA [id number] [place] [address] [place] NURSING PROGon 04-08-2023 NURSING PROG Normal [facility] Phosphate SerPl-mCncon 04-08 Phosphate [Mass/Vol] 3.8 mg/dL Normal 2.7-4.8 [facility] Comment on above: Order Comment: Speci men Type: BLOOD SPECIMENOrdering Facility: [facility] Address: [address] [place], [place] [address] Performed By: #### 2 4323-8, 2776-08, ####[facility] LABCLIA [id number] [place] [address] [place] THERAPY NTon 04-08-2023 THERAPY NT Normal [facility] THERAPY NT Normal [facility] XR CHEST 1V FRONTAL PORTon 0 04-08-2023 XR CHEST 1V FRONTAL PORT Normal [facility] ANES POSTPROC EVALon 023 ANES POSTPROC EVAL Normal [facility] ANES PRE-OPon 04-07-2023 ANES PRE-OP Normal [facility] BRIEF OP NOTon 04-07-2023 BRIEF OP NOT Normal [facility] CONFIRM BLOOD TYPEon 023 ABO A Normal [facility] Comment on above: Order Comment: Speci men Type: BLOOD SPECIMENOrdering Facility: [facility] Address: [address] [place] [address] Performed By: #### C ONABO ####[facility] BLOOD BANKCLIA [id number] [place] [address] [place] Rh Nom (Bld) Positive Normal [facility] Comment on above: Order Comment: Speci men Type: BLOOD SPECIMENOrdering Facility: [facility] Address: [address] [place] [address] Performed By: #### C ONABO ####[facility] BLOOD BANKCLIA [id number] [address] [place] CYTOLOGY NON-GYNon 3 CASE REPORT Normal [facility] Comment on above: Order Comment: Speci men Type: SPECIMEN OBTAINED BY LAVAGEOrdering Facility: [facility] Address: [address] [place] [address] Result Comment: Medi camryn Cytology Report Case: [id number] Provider: [place] Castillo MD Collected: 04/07/2023 12:23 PMOrdering Location: Admitting Received: 04/07/2023 02:37 PMPathologist: Catina Pyle MDSpecimen: PELVIC WASHING Performed By: #### C YTONON ####[facility] LABCLIA [id number] [address] [place] CLINICAL HISTORY Normal [facility] Comment on above: Order Comment: Speci men Type: SPECIMEN OBTAINED BY LAVAGEOrdering Facility: [facility] Address: [address] [place] [address] Result Comment: Pre- op diagnosis:Ovarian mass [N83.8]Preop examination [Z01.818] Performed By: #### C YTONON ####[facility] LABCLIA [id number] [address] [place] FINAL DIAGNOSIS Normal [facility] Comment on above: Order Comment: Speci men Type: SPECIMEN OBTAINED BY LAVAGEOrdering Facility: [facility] Address: [address] [place] [address] Result Comment: A - PELVIC WASHING Negative for malignant cells.The following cell blocks were associated with this case:A1Cell Block, Alcohol Fixed Performed By: #### C YTONON ####[facility] LABCLIA [id number] [address] STATES OF [facility] FINAL PERFORMING LAB Normal [facility] Comment on above: Order Comment: Speci men Type: SPECIMEN OBTAINED BY LAVAGEOrdering Facility: [facility] Address: [address] [place] [address] Result Comment: Tech nical component, table worker packager screening performed at [facility], [address] [place] [address] CLIA# [id number] interpretation performed at [facility], [address] [place] [id number] CLIA# [id number] Director: Antonio Esparza M.D. Performed By: #### C YTONON ####[facility] LABCLIA [id number] [place] [address] [place] GROSS DESCRIPTION Normal [facility] Comment on above: Order Comment: Speci men Type: SPECIMEN OBTAINED BY LAVAGEOrdering Facility: [facility] Address: [address] [place] [address] Result Comment: Ash RYAN [id number] cc cloudy red fluid with material. ThinPrep and Cell Block prepared. Performed By: #### C YTSPIKE ####[facility] LABCLIA [id number] [address] OF [place] OPERATIVE NOon 04-07-2023 OPERATIVE NO Normal [facility] SURGICAL PATHOLOGYon 023 CASE REPORT Normal [facility] Comment on above: Order Comment: Speci men Type: TISSUE SPECIMENOrdering Facility: [facility] Address: [address] [place] [address] Result Comment: Surg ica Pathology Report Case: [id number] Provider: [place] Castillo MD Collected: 04/07/2023 12:27 [...] diaphram peritoneum biopsy Performed By: #### S ####[facility] LABCLIA [id number] [place] [address] [place] CLINICAL HISTORY Normal [facility] Comment on above: Order Comment: Speci men Type: TISSUE SPECIMENOrdering Facility: [facility] Address: [address] [place] [address] Result Comment: Pre- op diagnosis:Ovarian mass [N83.8]Preop examination [Z01.818] Performed By: #### S ####[facility] LABCLIA [id number] [address] DI[address]NOS[address] COM[address] Dr[address] Nicole fernandeze d selected slides from part A and agrees with the diagnosis. Normal [facility] Comment on above: Order Comment: Speci men Type: TISSUE SPECIMENOrdering Facility: [facility] Address: [address] [place] [address] Performed By: #### S ####[facility] LABIA [id number] [address] FINAL DIAGNOSIS Normal [facility] Comment on above: Order Comment: Speci men Type: TISSUE SPECIMENOrdering Facility: [facility] Address: [address] [place] [address] Result Comment: A. R ight ovary and [...] Benign fibroadipose tissue. Performed By: #### S ####[facility] LABCLIA [id number] [address] OF [facility] FINAL PERFORMING LAB Normal [facility] Comment on above: Order Comment: Speci men Type: TISSUE SPECIMENOrdering Facility: [facility] Address: [address] [place] [address] Result Comment: Diag nostic interpretation performed at [facility], [address] [place] [address] CLIA# [id number] Director: Antonio Esparza M.D. Performed By: #### S ####[facility] LABCLIA [id number] [address] GROSS DESCRIPTION Normal [facility] Comment on above: Order Comment: Speci men Type: TISSUE SPECIMENOrdering Facility: [facility] Address: [address] [place] [address] Result Comment: A. F ALLOPIAN TUBE AND [...] The external surface of the mass is [id number]-[id number] and smooth. Serial sectioning of the mass [...] the ovary ends and the solid mass begins.Motion Picture Printer sections are submitted as follows:A 2-11 commercial sales representative sections of massA 12-13 possible residual [id number] fallopian tube fimbriated end bisected and totally submitted with commercial sales representative cross-sectionMW 04/08/2023. UTERUS CERVIX WITH [...] with a crinkled appearance ovarian parenchyma is unremarkable.Motion Picture Printer sections are submitted as follows:B1 cervix 6:00B2 cervix 12:00B3 anterior uterine wallB4 posterior uterine wallB5 left ovaryB6 left fallopian tube fimbriated end bivalved and totally submitted and commercial sales representative cross-sectionMW 04/08/2023. PERITONEUM BIOPSYReceived fresh [...] yellow-brown and lobulated. Sectioning reveals a unremarkable lumen.Motion Picture Printer sections are submitted as follows:M1 inked proximal resection margin and mesoappendiceal resection marginM2 entire distal tip, bisected and central cross-sections through lumenG[place] [address] CLIA# [id number] 04/07/23 3:59 PMN. OMENTUM RESECTIONReceived fresh, labeled "omentum resection" is an unoriented, lobulated portion of adipose tissue, consistent with omentum, measuring 25.0 x 15.0 x 0.6 cm. Sectioning reveals soft, de souza, homogenous cut surfaces consisting entirely of adipose tissue. Motion Picture Printer sections are submitted in cassettes N1-N6.AKA April 07, 2023 2:53 PMGross examination performed at [place] [id number]. PERITONEUM BIOPSYReceived fresh labeled "right diaphragm peritoneum biopsy" irregular segment of de souza-pink membranous soft tissue measuring 0.3 x 0.2 x 0.1 cm. Specimen is entirely submitted in O1[place] [address] CLIA# [id number] 04/07/23 3:55 PM Performed By: #### S ####[facility] LABCLIA [id number] [facility] [id number] [place] [address] [place] INTRAOPERATIVE DIAGNOSIS Normal [facility] Comment on above: Order Comment: Speci men Type: TISSUE SPECIMENOrdering Facility: [facility] Address: [address] [place] [address] Result Comment: A. 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 Juanito Will).Intraoperative diagnosis performed at [facility], [address] [facility].[place] [id number]. UTERUS CERVIX WITH FALLOPIAN TUBE AND OVARY LEFTFrozen section cancelled per Dr. Juanito Will. Grossly normal endometrium. Discussed with Dr. Castillo.Intraoperative diagnosis performed at [facility], [address] [place] [address] Performed By: #### S ####[facility] LABCLIA [id number] [address] [place] [address] [place] SYNOPTIC REPORT Normal [facility] Comment on above: Order Comment: Speci men Type: TISSUE SPECIMENOrdering Facility: [facility] Address: [address] [place] [address] Result Comment: OVAR Y or FALLOPIAN TUBE or PRIMARY PERITONEUMOVARY OR FALLOPIAN TUBE OR PRIMARY PERITONEUM: RESECTION - All [id number] Edition - Protocol posted: 10/28/2022SPECIMEN Procedure: Total [...] pathology report. pT Category: pT1c2 pN Category: [id number] STAGE FIGO Stage: IC2 Performed By: #### S ####[facility] LABCLIA [id number] [facility] S[facility]THSIDEFelicitas [place] [address] [place] CNPNon 04-06-2023 CNPN Normal [facility] HISTORY PHYSICALon HISTORY PHYSICAL Normal [facility] 03-24-2023 CNPN Telephone (AGCARDPOB ) ----- STEFANO WASHINGTON ([id number]) 1940 F Date Time Provider Department 03/24/23 DARI ARRIAGA AGCARDPOB During your visit today, we recorded the following information about you: Nanci Calloway 03/24/2023 2:37 PM Signed Received CC in [employer] [facility] but patient will be receiving services elsewhere . Allergies As of Date: 03/24/2023 Noted Allergy Reaction MACROBID (NITROFURANTOIN MONOHYD/*01/21/2023 8 - GI Upset Date Reviewed: 03/22/2023 Reviewed by: America Gnosalez MA - Fully Assessed Reason for Visit: [...] Status:Closed by NANCI CALLOWAY on 03/24/23 Normal [facility] ECG COMPLETEon 03-22-2023 Atrial Rate 99 BPM [facility] Calculated P Ashley 39 degrees [facility] Calculated R Ashley 114 degrees [facility] Calculated T Ashley 6 degrees [facility] P-R Interval 177 ms [facility] QRS Duration 133 ms [facility] QT Interval 374 ms [facility] QTC Calculation (Bazett) 483 ms [facility] Ventricular Rate 100 BPM [facility] CNPNon 03-16-2023 CNPN Normal [facility] CNCOon 03-10-2023 CNCO Letter Text Normal [facility] CNPNon 03-10-2023 CNPN Normal [facility] CT ABD/PEL W IVCONon 023 Radiology Result ACTIONABLE Abnormal [facility] CT ABD/PEL W IVCON Invalid Interpretation Code [facility] CNPNon 02-26-2023 CNPN Normal [facility] CNPNon 02-02-2023 CNPN Normal [facility] CNTHERAPYon 02-02-2023 CNTHERAPY Normal [facility] XR Lumbar spine 3 Viewson IMPRESSION: 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 COMPRESSION FRACTURE OF THE T11 VERTEBRAL BODY. Online Trader: PSCB Transcribe Date/Time: Jan 30 2023 1:51P Dictated by : CHRISTOPHER GIRALDO MD This examination was interpreted and the report reviewed and electronically signed by: CHRISTOPHER GIRALDO MD on Jan 30 2023 1:56PM [facility] DIVISION OF RADIOLOGY * * *Final Report* [...] and thoracic spine. DIVISION OF RADIOLOGY Provider, [facility] - 01/30/2023 * * *Final Report* * [...] COMPRESSION FRACTURE OF THE T11 VERTEBRAL BODY. Online Trader: IVONNE Transcribe Date/Time: Jan 30 2023 1:51P Dictated by : CHRISTOPHER GIRALDO MD This examination was interpreted and the report reviewed and electronically signed by: CHRISTOPHER GIRALDO MD on Jan 30 2023 1:56PM [facility] XR Lumbar spine 3 ViewsOrder ed By: Ccf Provider on 01-30-2023 [facility] CNOVon 01-27-2023 CNOV Normal [facility] CNPNon 01-27-2023 CNPN Normal [facility] XR LUMBAR 3V AP/LAT/L5-S1on 01-27-2023 XR LUMBAR 3V AP/LAT/L5-S1 Normal [facility] XR LUMBAR GENERAL 3V AP/LAT/ L5-S1on 01-27-2023 [facility] XR Lumbar spine 3 Viewson Radiology Study observation (narrative) [facility] Bacteria Ur Culton Bacteria identified Cx Nom (U) Normal [facility] Comment on above: Performed By: #### 6 30-4 ####[facility] LABCLIA [id number] [place] [address] [place] CNPNon 01-25-2023 CNPN Normal [facility] XR Chest PA and Lateralon IMPRESSION: 1. No pleural effusion or consolidation 2. Large hiatal hernia Online Trader: [facility] Transcribe Date/Time: Jul 20 2022 8:31A Dictated by : JANAY DESAI MD This examination was interpreted and the report reviewed and electronically signed by: JANAY DESAI MD on Jul 20 2022 8:32AM [facility] DIVISION OF RADIOLOGY * * *Final Report* [...] Large hiatal hernia. DIVISION OF RADIOLOGY Provider, Matthew lanier [place] - 07/20/2022 * * *Final Report* * [...] effusion or consolidation 2. Large hiatal hernia Online Trader: PSCVasu Transcribe Date/Time: Jul 20 2022 8:31A Dictated by : JANAY DESAI MD This examination was interpreted and the report reviewed and electronically signed by: JANAY DESAI MD on Jul 20 2022 8:32AM EST [facility] Radiology Study observation (narrative) [facility] XR Chest PA and LateralOrder ed By: Ccf Provider on 07-20-2022 [facility] LIPID PANEL, NONFASTINGon Cholesterol [Mass/Vol] 238 mg/dL High <200 mg/dL [facility] HDL Cholesterol, Nonfasting 64 mg/dL >39 mg/dL [facility] LDL Cholesterol, Nonfasting 127 mg/dL High <100 mg/dL [facility] LDL/HDL Ratio, Nonfasting 1.98 mg/dL <2.54 mg/dL [facility] Non HDL Cholesterol, Nonfasting 174 mg/dL High <130 mg/dL [facility] Total Chol/HDL Ratio, Nonfasting 3.72 mg/dL <5.10 mg/dL [facility] Triglycerides, Nonfasting 235 mg/dL High <150 mg/dL [facility] VLDL Cholesterol, Nonfasting 47 mg/dL High <30 mg/dL [facility] TSH BLDon 06-27-2022 TSH Qn 3.260 m[IU]/L 0.270 - 4.200 mIU/L [facility] Urinalysis complete panel (U )on 12-13-2021 Bilirubin Ql (U) Negative Negative [facility] Clarity (Unsp spec) Clear Clear [facility] Color (U) Light Yellow Yellow [facility] Epithelial cells LM.HPF (Urine sed) [#/Area] Few [facility] Glucose Test strip (U) [Mass/Vol] Negative Negative [facility] Hemoglobin Ql (U) Negative Negative [facility] Ketones Ql (U) Negative Negative [facility] Leukocyte esterase Test strip Ql (U) Negative Negative [facility] Nitrite Ql (U) Negative Negative [facility] pH (U) 6.0 [pH] 5.0 - 8.0 [facility] Protein (U) [Mass/Vol] Negative Negative [facility] RBC LM.HPF (Urine sed) [#/Area] 0-3 /HPF 0-3 /HPF [facility] Specific gravity (U) [Rel density] 1.006 1.005 - 1.030 [facility] Urobilinogen Ql (U) Negative Negative [facility] WBC LM.HPF (Urine sed) [#/Area] 0-5 /HPF 0-5 /HPF [facility] CBC W Auto Differential pane l (Bld)on 12-12-2021 Abs Immature Gran <0.03 <0.10 k/uL [facility] Basophils (Bld) [#/Vol] 0.06 10*3/uL <0.11 k/uL [facility] Basophils/100 WBC (Bld) 1.2 % [facility] Differential cell count method Nom (Bld) Auto [facility] Eosinophils (Bld) [#/Vol] 0.13 10*3/uL <0.46 k/uL [facility] Eosinophils/100 WBC (Bld) 2.6 % [facility] Erythrocyte distribution width (RBC) [Ratio] 14.2 % 11.5 - 15.0 % [facility] Hematocrit (Bld) [Volume fraction] 39.6 % 36.0 - 46.0 % [facility] Hemoglobin (Bld) [Mass/Vol] 12.6 g/dL 11.5 - 15.5 g/dL [facility] Immature Gran % 0.4 % [facility] Lymphocytes (Bld) [#/Vol] 1.67 10*3/uL 1.00 - 4.00 k/uL [facility] Lymphocytes/100 WBC (Bld) 33.7 % [facility] MCH (RBC) [Entitic mass] 31.0 pg 26.0 - 34.0 pg [facility] MCHC (RBC) [Mass/Vol] 31.8 g/dL 30.5 - 36.0 g/dL [facility] MCV (RBC) [Entitic vol] 97.5 fL 80.0 - 100.0 fL [facility] Monocytes (Bld) [#/Vol] 0.42 10*3/uL <0.87 k/uL [facility] Monocytes/100 WBC (Bld) 8.5 % [facility] Neutrophils (Bld) [#/Vol] 2.65 10*3/uL 1.45 - 7.50 k/uL [facility] Neutrophils/100 WBC (Bld) 53.6 % [facility] Nucleated RBC (Bld) [#/Vol] 10*3/uL <0.01 k/uL [facility] Nucleated RBC/100 WBC (Bld) [Ratio] 0.0 /100 WBC [facility] Platelet mean volume (Bld) [Entitic vol] 10.9 fL 9.0 - 12.7 fL [facility] Platelets (Bld) [#/Vol] 239 10*3/uL 150 - 400 k/uL [facility] RBC (Bld) [#/Vol] 4.06 10*6/uL 3.90 - 5.20 m/uL [facility] WBC (Bld) [#/Vol] 4.95 10*3/uL 3.70 - 11.00 k/uL [facility] Comprehensive metabolic 2000 panelon 12-12-2021 Albumin [Mass/Vol] 4.7 g/dL 3.9 - 4.9 g/dL [facility] ALP [Catalytic activity/Vol] 66 U/L 34 - 123 U/L [facility] ALT [Catalytic activity/Vol] 19 U/L 7 - 38 U/L [facility] Anion gap [Moles/Vol] 12 mmol/L 9 - 18 mmol/L [facility] AST [Catalytic activity/Vol] 30 U/L 13 - 35 U/L [facility] Bilirubin [Mass/Vol] 0.4 mg/dL 0.2 - 1 .3 mg/dL [facility] Calcium [Mass/Vol] 9.8 mg/dL 8.5 - 10. 2 mg/dL [facility] Chloride [Moles/Vol] 102 mmol/L 97 - 10 5 mmol/L [facility] CO2 [Moles/Vol] 26 mmol/L 22 - 30 mmol/L [facility] Creatinine [Mass/Vol] 0.65 mg/dL 0.58 - 0.96 mg/dL [facility] Estimated Glomerular Filtration Rate 88 mL/min/1.73m >=60 mL/min/1.7 3m [facility] Glucose [Mass/Vol] 102 mg/dL High 74 - 99 mg/dL [facility] Potassium [Moles/Vol] 4.8 mmol/L 3.7 - 5.1 mmol/L [facility] Protein [Mass/Vol] 7.8 g/dL 6.3 - 8.0 g/dL [facility] Sodium [Moles/Vol] 140 mmol/L 136 - 144 mmol/L [facility] Urea nitrogen [Mass/Vol] 13 mg/dL 7 - 21 mg/dL [facility] LIPID PANEL, NONFASTINGon Cholesterol [Mass/Vol] 239 mg/dL High <200 mg/dL [facility] HDL Cholesterol, Nonfasting 52 mg/dL >39 mg/dL [facility] LDL Cholesterol, Nonfasting 140 mg/dL High <100 mg/dL [facility] LDL/HDL Ratio, Nonfasting 2.69 mg/dL High <2.54 mg/dL [facility] Non HDL Cholesterol, Nonfasting 187 mg/dL High <130 mg/dL [facility] Total Chol/HDL Ratio, Nonfasting 4.60 mg/dL <5.10 mg/dL [facility] Triglycerides, Nonfasting 233 mg/dL High <150 mg/dL [facility] VLDL Cholesterol, Nonfasting 47 mg/dL High <30 mg/dL [facility] TSH BLDon 12-12-2021 TSH Qn 2.980 m[IU]/L 0.270 - 4.200 mIU/L [facility] Vital Signs Date Time Vital Sign Value Performing Clinician Facility 05-25-2025 10:40-0400 Body height 152.[address] Carl Encarnacion MD Work Phone: [facility] 12-04-2024 15:30-0400 Body height 152.[address] Carl Encarnacion MD Work Phone: [facility] 12-04-2024 15:30-0400 Body mass index (BMI) [Ratio] 34.2 kg/m2 Dr. Carl Encarnacion MD Work Phone: [facility] 12-04-2024 15:30-0400 Body weight 79.[address] Carl Encarnacion MD Work Phone: [facility] 02-14-2024 14:31-0400 Blood Pressure Cuff Size ANNELIESE PLUNK DO [facility] 02-14-2024 14:31-0400 Blood Pressure Location ANNELIESE PLUNK DO [address] [place] [id number] 02-14-2024 14:31-0400 Blood Pressure Method ANNELIESE PLUNK [employer] [address] [place] [address] 02-14-2024 14:31-0400 Body temperature 98.24 [degF] ANNELIESE PLUNK DO [facility] 02-14-2024 14:31-0400 Diastolic Blood Pressure Non-Invasive 55 mm[Hg] ANNELIESE PLUNK DO [facility] 02-14-2024 14:31-0400 Heart rate 83 /min ANNELIESE PLUNK DO [facility] 02-14-2024 14:31-0400 Reason For Taking VItal Signs ANNELIESE PLUNK DO [facility] 02-14-2024 14:31-0400 Respiratory rate 20 /min ANNELIESE PLUNK DO [facility] 02-14-2024 14:31-0400 Systolic Blood Pressure Non-Invasive 120 mm[Hg] ANNELIESE PLUNK DO [facility] 02-14-2024 07:21-0400 Blood Pressure Cuff Size ANNELIESE PLUNK DO [facility] 02-14-2024 07:21-0400 Blood Pressure Location ANNELIESE PLUNK [employer] [facility] 02-14-2024 07:21-0400 Blood Pressure Method ANNELIESE PLUNK DO [facility] 02-14-2024 07:21-0400 Body temperature 97.34 [degF] ANNELIESE PLUNK DO [address] [place] [address] 02-14-2024 07:21-0400 Diastolic Blood Pressure Non-Invasive 42 mm[Hg] ANNELIESE PLUNK DO [address] [place] [address] 02-14-2024 07:21-0400 Heart rate 64 /min ANNELIESE PLUNK [employer] [address] [place] [address] 02-14-2024 07:21-0400 Reason For Taking VItal Signs ANNELIESE PLN-Trig [address] [place] [address] 02-14-2024 07:21-0400 Respiratory rate 20 /min ANNELIESE PLN-Trig [address] [place] [address] 02-14-2024 07:21-0400 Systolic Blood Pressure Non-Invasive 111 mm[Hg] ANNELIESE PLN-Trig [address] [place] [address] 02-13-2024 21:27-0400 Body temperature 98.42 [degF] ANNELIESE PLUNK [employer] [address] [place] [address] 02-13-2024 21:27-0400 Diastolic Blood Pressure Non-Invasive 47 mm[Hg] ANNELIESE PLUNK [employer] [address] [place] [address] 02-13-2024 21:27-0400 Heart rate 74 /min ANNELIESE PLUNK [employer] [address] [place] [address] 02-13-2024 21:27-0400 Reason For Taking VItal Signs ANNLEIESE PLN-Trig [address] [place] [address] 02-13-2024 21:27-0400 Respiratory rate 20 /min ANNELIESE PLN-Trig [address] [place] [address] 02-13-2024 21:27-0400 Systolic Blood Pressure Non-Invasive 120 mm[Hg] ANNELIESE PLN-Trig [address] [place] [address] 02-13-2024 14:50-0400 Blood Pressure Cuff Size ANNELIESE PLUNK DO [facility] 02-13-2024 14:50-0400 Blood Pressure Location ANNELIESE PLUNK DO [address] [place] [address] 02-13-2024 14:50-0400 Blood Pressure Method ANNELIESE PLUNK DO [address] [place] [address] 02-08-2024 22:20-0400 Heart rate 82 /min ANNELIESE PLUNK DO [address] [place] [address] 02-07-2024 22:08-0400 Heart rate 70 /min ANNELIESE PLUNK DO [address] [place] [address] 02-07-2024 14:57-0400 Heart rate 70 /min ANNELIESE PLUNK DO [address] [place] [address] 02-05-2024 07:36-0400 Heart rate 65 /min ANNELIESE PLUNK DO [address] [place] [address] 02-05-2024 02:51-0400 Body height 152.4 cm ANNELIESE PLUNK DO [address] [place] [address] 02-05-2024 02:51-0400 Body weight 76.8 kg ANNELIESE PLUNK DO [address] [place] [address] 02-05-2024 02:51-0400 Body weight 33.07 kg/m2 ANNELIESE PLUNK DO [address] 02-05-2024 02:10-0400 Body height 152.4 cm ANNELIESE PLUNK DO [address] [place] [address] 02-05-2024 02:10-0400 Body weight 76.8 kg ANNELIESE PLUNK DO [address] [place] [address] 02-05-2024 02:10-0400 Body weight 33.07 kg/m2 ANNELIESE PLUNK DO [address] [place] [address] 02-05-2024 01:51-0400 Heart rate 66 /min ANNELIESE PLUNK DO [address] [place] [address] 02-05-2024 01:51-0400 Mean blood pressure 79 mm[Hg] ANNELIESE CHAIREZ DO [facility] 02-04-2024 23:33-0400 Body temperature 98.42 [degF] STEFANO BUTTELGIN TABLEMAN-ORTHOPEDIC NURSE [facility] 02-04-2024 23:33-0400 Diastolic Blood Pressure Non-Invasive 54 mm[Hg] STEFANO FILOMENAELGIN TABLEMAN-ORTHOPEDIC NURSE [facility] 02-04-2024 23:33-0400 Heart rate 63 /min STEFANO BUTTELGIN TABLEMAN-ORTHOPEDIC NURSE [facility] 02-04-2024 23:33-0400 Respiratory rate 16 /min STEFANO BUTTELGIN TABLEMAN-ORTHOPEDIC NURSE [facility] 02-04-2024 23:33-0400 Systolic Blood Pressure Non-Invasive 121 mm[Hg] STEFANOKAI BUTTELGIN TABLEMAN-ORTHOPEDIC NURSE [facility] 02-04-2024 20:11-0400 Body temperature 98.24 [degF] STEFANO BUTTELGIN TABLEMAN-ORTHOPEDIC NURSE [facility] 02-04-2024 20:11-0400 Diastolic Blood Pressure Non-Invasive 67 mm[Hg] STEFANOKAI BUTTELGIN TABLEMAN-ORTHOPEDIC NURSE [facility] 02-04-2024 20:11-0400 Heart rate 77 /min STEFANO BUTTELGIN TABLEMAN-ORTHOPEDIC NURSE [facility] 02-04-2024 20:11-0400 Respiratory rate 16 /min STEFANOKAI BUTTELGIN TABLEMAN-ORTHOPEDIC NURSE [facility] 02-04-2024 20:11-0400 Systolic Blood Pressure Non-Invasive 94 mm[Hg] STEFANO FILOMENAELGIN TABLEMAN-ORTHOPEDIC NURSE [facility] 02-04-2024 15:40-0400 Body temperature 98.06 [degF] STEFANO GRAHAM TABLEMAN-ORTHOPEDIC NURSE [facility] 02-04-2024 15:40-0400 Diastolic Blood Pressure Non-Invasive 61 mm[Hg] STEFANO GRAHAM TABLEMAN-ORTHOPEDIC NURSE [facility] 02-04-2024 15:40-0400 Heart rate 88 /min STEFANO GRAHAM TABLEMAN-ORTHOPEDIC NURSE [facility] 02-04-2024 15:40-0400 Respiratory rate 16 /min STEFANO GRAHAM TABLEMAN-ORTHOPEDIC NURSE [facility] 02-04-2024 15:40-0400 Systolic Blood Pressure Non-Invasive 127 mm[Hg] STEFANO GRAHAM TABLEMAN-ORTHOPEDIC NURSE [facility] 02-04-2024 09:24-0400 Blood Pressure Cuff Size STEFANO GRAHAM TABLEMAN-ORTHOPEDIC NURSE [facility] 02-04-2024 09:24-0400 Blood Pressure Location STEFANO GRAHAM TABLEMAN-ORTHOPEDIC NURSE [facility] 02-04-2024 09:24-0400 Blood Pressure Method STEFANO GRAHAM TABLEMAN-ORTHOPEDIC NURSE [facility] 02-04-2024 07:45-0400 Blood Pressure Cuff Size STEFANO GRAHAM TABLEMAN-ORTHOPEDIC NURSE [facility] 02-04-2024 07:45-0400 Blood Pressure Location STEFNAO GRAHAM TABLEMAN-ORTHOPEDIC NURSE [facility] 02-04-2024 07:45-0400 Blood Pressure Method STEFANO CHRISN TABLEMAN-ORTHOPEDIC NURSE [facility] 02-03-2024 03:15-0400 Heart rate 66 /min STEFANOKAI CHRISN TABLEMAN-ORTHOPEDIC NURSE [facility] 02-02-2024 23:09-0400 Heart rate 65 /min STEFANOKAI BUTTNEN TABLEMAN-ORTHOPEDIC NURSE [facility] 02-02-2024 18:45-0400 Heart rate 82 /min STEFANOKAI BUTTNEN TABLEMAN-ORTHOPEDIC NURSE [facility] 02-01-2024 12:41-0400 Body height 152.4 cm STEFANOKAI BUTTNEN TABLEMAN-ORTHOPEDIC NURSE [facility] 02-01-2024 12:41-0400 Body weight 76.2 kg STEFANO FILOMENANEN TABLEMAN-ORTHOPEDIC NURSE [facility] 02-01-2024 12:41-0400 Body weight 32.81 kg/m2 STEFANOKAI BUTTNEN TABLEMAN-ORTHOPEDIC NURSE [facility] 02-01-2024 12:23-0400 Body height 152.4 cm STEAFNOKAI BUTTNEN TABLEMAN-ORTHOPEDIC NURSE [facility] 02-01-2024 12:23-0400 Body weight 76.2 kg STEFANOKAI BUTTNEN TABLEMAN-ORTHOPEDIC NURSE [facility] 02-01-2024 12:23-0400 Body weight 32.81 kg/m2 STEFANOKAI BUTTNEN TABLEMAN-ORTHOPEDIC NURSE [facility] 02-01-2024 07:01-0400 Body temperature 97.7 [degF] USMAN CHILDS MD FACP [facility] 02-01-2024 07:01-0400 Diastolic Blood Pressure Non-Invasive 60 mm[Hg] USMAN CHILDS MD FACP [facility] 02-01-2024 07:01-0400 Heart rate 82 /min USMAN CHILDS MD FACP [facility] 02-01-2024 07:01-0400 Respiratory rate 20 /min USMAN CHILDS MD FACP [facility] 02-01-2024 07:01-0400 Systolic Blood Pressure Non-Invasive 117 mm[Hg] USMAN CHILDS MD FACP [facility] 01-31-2024 20:07-0400 Body temperature 97.88 [degF] USMAN CHILDS MD FACP [facility] 01-31-2024 20:07-0400 Diastolic Blood Pressure Non-Invasive 61 mm[Hg] USMAN CHILDS MD FACP [facility] 01-31-2024 20:07-0400 Heart rate 85 /min USMAN CHILDS MD FACP [facility] 01-31-2024 20:07-0400 Respiratory rate 20 /min USMAN CHILDS MD FACP [facility] 01-31-2024 20:07-0400 Systolic Blood Pressure Non-Invasive 103 mm[Hg] USMAN CHILDS MD FACP [facility] 01-31-2024 11:05-0400 Heart rate 85 /min USMAN CHILDS MD FACP [facility] 01-31-2024 08:30-0400 Body temperature 98.6 [degF] USMAN CHILDS MD FACP [facility] 01-31-2024 07:29-0400 Diastolic Blood Pressure Non-Invasive 51 mm[Hg] USMAN CHILDS MD FACP [facility] 01-31-2024 07:29-0400 Respiratory rate 20 /min USMAN CHILDS MD FACP [facility] 01-31-2024 07:29-0400 Systolic Blood Pressure Non-Invasive 111 mm[Hg] USMAN CHILDS MD FACP [facility] 01-30-2024 07:54-0400 Heart rate 98 /min USMAN CHILDS MD FACP [facility] 01-29-2024 19:38-0400 Reason For Taking VItal Signs USMAN CHILDS MD FACP [facility] 01-29-2024 13:15-0400 Heart rate 94 /min USMAN CHILDS MD FACP [facility] 01-29-2024 09:19-0400 Heart rate 67 /min USMAN CHILDS MD FACP [facility] 01-28-2024 19:14-0400 Reason For Taking VItal Signs USMAN CHILDS MD FACP [facility] 01-27-2024 19:35-0400 Heart rate 78 /min USMAN CHILDS MD FACP [facility] 01-26-2024 20:05-0400 Heart rate 84 /min USMAN CHILDS MD FACP [facility] 01-25-2024 19:58-0400 Heart rate 78 /min USMAN CHILDS MD FACP [facility] 01-22-2024 17:48-0400 Body height 152.4 cm USMAN CHILDS MD FACP [facility] 01-22-2024 17:48-0400 Body weight 76.2 kg USMAN CHILDS MD FACP [facility] 01-22-2024 17:48-0400 Body weight 32.81 kg/m2 USMAN CHILDS MD FACP [facility] 12-13-2023 12:48-0400 Body mass index (BMI) [Ratio] 33.45 kg/m2 Ester Suppan TABLEMAN.VALLEZ FILTER OPERATOR Work Phone: [facility] 12-13-2023 12:48-0400 Body weight 78.29 kg Ester Suppan TABLEMAN.VALLEZ FILTER OPERATOR Work Phone: [facility] 12-13-2023 12:48-0400 Diastolic blood pressure 66 mm[Hg] Ester Suppan TABLEMAN.VALLEZ FILTER OPERATOR Work Phone: [facility] 12-13-2023 12:48-0400 Heart rate 60 /min Ester Suppan TABLEMAN.VALLEZ FILTER OPERATOR Work Phone: [facility] 12-13-2023 12:48-0400 Respiratory rate 20 /min Ester Suppan TABLEMAN.VALLEZ FILTER OPERATOR Work Phone: [facility] 12-13-2023 12:48-0400 SaO2% (BldA) [Mass fraction] 98 % Ester Suppan TABLEMAN.VALLEZ FILTER OPERATOR Work Phone: [facility] 12-13-2023 12:48-0400 Systolic blood pressure 100 mm[Hg] Ester Suppan TABLEMAN.VALLEZ FILTER OPERATOR Work Phone: [facility] 12-11-2023 07:56-0400 Diastolic Blood Pressure Non-Invasive 64 mm[Hg] USMAN CHILDS MD FACP [facility] 12-11-2023 07:56-0400 Systolic Blood Pressure Non-Invasive 120 mm[Hg] USMAN CHILDS MD FACP [facility] 12-11-2023 06:47-0400 Body temperature 97.88 [degF] USMAN CHILDS MD FACP [facility] 12-11-2023 06:47-0400 Diastolic Blood Pressure Non-Invasive 60 mm[Hg] USMAN CHILDS MD FACP [facility] 12-11-2023 06:47-0400 Heart rate 87 /min USMAN CHILDS MD FACP [facility] 12-11-2023 06:47-0400 Reason For Taking VItal Signs USMAN CHILDS MD FACP [facility] 12-11-2023 06:47-0400 Respiratory rate 18 /min USMAN CHILDS MD FACP [facility] 12-11-2023 06:47-0400 Systolic Blood Pressure Non-Invasive 117 mm[Hg] USMAN CHILDS MD FACP [facility] 12-10-2023 19:44-0400 Body temperature 97.7 [degF] USMAN CHILDS MD FACP [facility] 12-10-2023 19:44-0400 Diastolic Blood Pressure Non-Invasive 57 mm[Hg] USMAN CHILDS MD FACP [facility] 12-10-2023 19:44-0400 Heart rate 85 /min USMAN CHILDS MD FACP [facility] 12-10-2023 19:44-0400 Reason For Taking VItal Signs USMAN CHILDS MD FACP [facility] 12-10-2023 19:44-0400 Respiratory rate 18 /min USMAN CHILDS MD FACP [facility] 12-10-2023 19:44-0400 Systolic Blood Pressure Non-Invasive 110 mm[Hg] USMAN CHILDS MD FACP [facility] 12-10-2023 06:10-0400 Body temperature 97.7 [degF] USMAN CHILDS MD FACP [facility] 12-10-2023 06:10-0400 Heart rate 84 /min USMAN CHILDS MD FACP [facility] 12-10-2023 06:10-0400 Reason For Taking VItal Signs USMAN CHILDS MD FACP [facility] 12-10-2023 06:10-0400 Respiratory rate 18 /min USMAN CHILDS MD FACP [address] [place] [address] 12-09-2023 20:06-0400 Heart rate 84 /min USMAN CHILDS MD FACP [facility] 12-07-2023 19:37-0400 Heart rate 78 /min USMAN CHILDS MD FACP [facility] 12-06-2023 19:42-0400 Heart rate 84 /min USMAN CHILDS MD FACP [facility] 12-06-2023 11:25-0400 Body weight 79.09 kg USMAN CHILDS MD FACP [facility] 12-06-2023 07:00-0400 Heart rate 83 /min USMAN CHILDS MD FACP [address] [place] [address] 12-04-2023 20:19-0400 Heart rate 92 /min SUMAN CHILDS MD FACP [facility] 11-30-2023 06:24-0400 Body weight 80.6 kg USMAN CHILDS MD FACP [facility] 11-26-2023 21:19-0400 Body height 152.4 cm USMAN CHILDS MD FACP [facility] 11-26-2023 21:19-0400 Body weight 80.6 kg USMAN CHILDS MD FACP [facility] 11-26-2023 21:19-0400 Body weight 34.7 kg/m2 USMAN CHILDS MD FACP [facility] 11-26-2023 20:37-0400 Body temperature 98.8 [degF] Dr. Carl Encarnacion Work Phone: [facility] 11-26-2023 20:37-0400 Diastolic blood pressure 72 mm[Hg] Dr. Carl Encarnacion Work Phone: [facility] 11-26-2023 20:37-0400 Heart rate 115 /min Dr. Carl Encarnacion Work Phone: [phone] [address] 11-26-2023 20:37-0400 Respiratory rate 18 /min Dr. Carl Encarnacion Work Phone: [facility] 11-26-2023 20:37-0400 SaO2% (BldA) [Mass fraction] 97 % Dr. Carl Encarnacion Work Phone: [facility] 11-26-2023 20:37-0400 Systolic blood pressure 139 mm[Hg] Dr. Carl Encarnacion Work Phone: [facility] 11-23-2023 12:51-0400 Body height 152.[address] Carl Encarnacion Work Phone: [facility] 11-23-2023 12:51-0400 Body mass index (BMI) [Ratio] 34.3 kg/m2 Dr. Carl Encarnacion Work Phone: [facility] 11-23-2023 12:51-0400 Body weight 79.[address] Carl Encarnacion Work Phone: [facility] 11-23-2023 11:58-0400 Diastolic blood pressure 102 mm[Hg] [facility] 11-23-2023 11:58-0400 Heart rate 96 /min [facility] 11-23-2023 11:58-0400 Respiratory rate 20 /min [facility] 11-23-2023 11:58-0400 SaO2% (BldA) [Mass fraction] 95 % [facility] 11-23-2023 11:58-0400 Systolic blood pressure 120 mm[Hg] [facility] 11-23-2023 11:49-0400 Body temperature 98 [degF] [facility] 11-23-2023 08:07-0400 Body height 152.4 cm [facility] 11-23-2023 08:07-0400 Body mass index (BMI) [Ratio] 36.3 kg/m2 [facility] 11-23-2023 08:07-0400 Body weight 84.3 kg [facility] 07-26-2023 11:33-0500 Body temperature 98.1 [degF] Prosper Amador Work Phone: [facility] 07-26-2023 11:33-0500 Body weight 73.94 kg Prosper Amador Work Phone: [facility] 07-26-2023 11:33-0500 Diastolic blood pressure 69 mm[Hg] Prosper Amador Work Phone: [facility] 07-26-2023 11:33-0500 Heart rate 106 /min Prosper Amador Work Phone: [facility] 07-26-2023 11:33-0500 SaO2% (BldA) [Mass fraction] 98 % Prosper Amador Work Phone: [facility] 07-26-2023 11:33-0500 Systolic blood pressure 142 mm[Hg] Prosper Amador Work Phone: [facility] 11-29-2023 08:34-0500 Body height 153 cm Wilmar Masci DO Work Phone: [facility] 07-07-2023 08:34-0500 Body temperature 98.8 [degF] Wilmar Masci DO Work Phone: [facility] 07-07-2023 08:34-0500 Body weight 75.3 kg Wilmar Masci DO Work Phone: [facility] 07-07-2023 08:34-0500 Diastolic blood pressure 84 mm[Hg] Wilmar Masci DO Work Phone: [facility] 07-07-2023 08:34-0500 Heart rate 92 /min Wilmar Masci DO Work Phone: [facility] 07-07-2023 08:34-0500 SaO2% (BldA) [Mass fraction] 98 % Wilmar Masci DO Work Phone: [facility] 07-07-2023 08:34-0500 Systolic blood pressure 150 mm[Hg] Wilmar Masci DO Work Phone: [facility] 06-02-2023 13:59-0400 Body temperature 97.9 [degF] Wilmar Masci DO Work Phone: [facility] 06-02-2023 13:59-0400 Body weight 73.48 kg Wilmar Masci DO Work Phone: [facility] 06-02-2023 13:59-0400 Diastolic blood pressure 71 mm[Hg] Wilmar Masci DO Work Phone: [facility] 06-02-2023 13:59-0400 Heart rate 96 /min Wilmar Masci DO Work Phone: [facility] 06-02-2023 13:59-0400 SaO2% (BldA) [Mass fraction] 97 % Wilmar Masci DO Work Phone: [facility] 06-02-2023 13:59-0400 Systolic blood pressure 121 mm[Hg] Wilmar Masci DO Work Phone: [facility] 05-03-2023 15:18-0400 Body temperature 97.5 [degF] Eliot Castillo MD Work Phone: [facility] 05-03-2023 15:18-0400 Body weight 72.94 kg Eliot Castillo MD Work Phone: [facility] 05-03-2023 15:18-0400 Diastolic blood pressure 66 mm[Hg] Eliot Castillo MD Work Phone: [facility] 05-03-2023 15:18-0400 Heart rate 93 /min Eliot Castillo MD Work Phone: [facility] 05-03-2023 15:18-0400 Systolic blood pressure 144 mm[Hg] Eliot Castillo MD Work Phone: [facility] 04-06-2023 14:45-0400 Body height 156 cm [facility] 04-06-2023 14:45-0400 Body weight 72.58 kg [facility] 01-27-2023 10:22-0400 Body temperature 98.29 [degF] Kristen Eugene PA-C Work Phone: [facility] 01-27-2023 10:22-0400 Diastolic blood pressure 70 mm[Hg] Kristen Eugene PA-C Work Phone: [facility] 01-27-2023 10:22-0400 Heart rate 110 /min Kristen Eugene PA-C Work Phone: [facility] 01-27-2023 10:22-0400 Respiratory rate 16 /min Kristen Eugene PA-C Work Phone: [facility] 01-27-2023 10:22-0400 Systolic blood pressure 110 mm[Hg] Kristen Eugene PA-C Work Phone: [facility] 01-12-2023 10:22-0400 Body height 160.02 cm [facility] 01-12-2023 10:22-0400 Body mass index (BMI) [Ratio] 31.1 kg/m2 [facility] 01-12-2023 10:22-0400 Body temperature 97.6 [degF] [facility] 01-12-2023 10:22-0400 Body weight 79.78 kg [facility] 01-12-2023 10:22-0400 Diastolic blood pressure 83 mm[Hg] [facility] 01-12-2023 10:22-0400 Heart rate 92 /min [facility] 01-12-2023 10:22-0400 Respiratory rate 16 /min [facility] 01-12-2023 10:22-0400 SaO2% (BldA) [Mass fraction] 100 % [facility] 01-12-2023 10:22-0400 Systolic blood pressure 146 mm[Hg] [facility] 07-19-2022 11:20-0500 Body temperature 98.01 [degF] Isabel Older TABLEMAN.ORTHOPEDIC NURSE Work Phone: [facility] 07-19-2022 11:20-0500 Body weight 75.75 kg Isabel Older TABLEMAN.ORTHOPEDIC NURSE Work Phone: [facility] 07-19-2022 11:20-0500 Diastolic blood pressure 82 mm[Hg] Isabel Older TABLEMAN.ORTHOPEDIC NURSE Work Phone: [facility] 07-19-2022 11:20-0500 Heart rate 118 /min Isabel Older TABLEMAN.ORTHOPEDIC NURSE Work Phone: [facility] 07-19-2022 11:20-0500 Respiratory rate 20 /min Isabel Older TABLEMAN.ORTHOPEDIC NURSE Work Phone: [facility] 07-19-2022 11:20-0500 SaO2% (BldA) [Mass fraction] 95 % Isabel Older TABLEMAN.ORTHOPEDIC NURSE Work Phone: [facility] 07-19-2022 11:20-0500 Systolic blood pressure 140 mm[Hg] Isabel Older TABLEMAN.ORTHOPEDIC NURSE Work Phone: [facility] 06-26-2022 11:08-0500 Diastolic blood pressure 72 mm[Hg] Carl Encarnacion MD Work Phone: [facility] 06-26-2022 11:08-0500 Systolic blood pressure 130 mm[Hg] Carl Encarnacion MD Work Phone: [facility] 06-26-2022 10:45-0500 Body weight 76.66 kg Carl Encarnacion MD Work Phone: [facility] 06-26-2022 10:45-0500 Heart rate 90 /min Carl Encarnacion MD Work Phone: [facility] 06-26-2022 10:45-0500 Respiratory rate 20 /min Carl Encarnacion MD Work Phone: [facility] 12-12-2021 12:20-0400 Diastolic blood pressure 94 mm[Hg] Carl Encarnacion MD Work Phone: [facility] 12-12-2021 12:20-0400 Systolic blood pressure 182 mm[Hg] Carl Encarnacion MD Work Phone: [facility] 12-12-2021 11:56-0400 Body weight 75.3 kg Carl Encarnacion MD Work Phone: [facility] 12-12-2021 11:56-0400 Heart rate 82 /min Carl Encarnacion MD Work Phone: [facility] 12-12-2021 11:56-0400 Respiratory rate 16 /min Carl Encarnacion MD Work Phone: [facility] Encounters Encounter Date Encounter Type Care Provider Facility Start: 06-19-2025 ambulatory Lasha Waters cility:[facility] Start: 05-28-2025 ambulatory Lasha VASQUEZ Fa cility:[facility] Start: 04-20-2025 End: 04-20-[address] Carl Encarnacion MD Work Phone: -[facility] Start: 04-20-2025 End: 04-20-2025 Patient encounter procedure Savi SINGHC -[facility] Work Phone: Start: 04-16-2025 ambulatory Lasha Waters cility:[facility] Start: 04-16-2025 Registered Referred Lasha Pro MD -[facility] Start: 03-20-2025 End: 03-20-[address] Carl Encarnacion MD Work Phone: [facility] Start: 03-20-2025 End: 03-20-[address] Lasha Pro MD -[facility] Work Phone: Start: 03-05-2025 ambulatory Lasha VASQUEZ Fa cility:[facility] Start: 03-05-2025 Registered Referred Lasha Pro MD [facility] Start: 03-01-2025 End: 03-01-[address] Carl Encarnacion MD Work Phone: [facility] Start: 03-01-2025 End: 03-01-2025 Patient encounter procedure Jim SANTOS [facility] Work Phone: Start: 02-19-2025 End: 02-19-[address] Carl Encarnacion MD Work Phone: [facility] Start: 02-19-2025 End: 02-19-2025 Departed Referred Lasha Pro MD [facility] Start: 02-19-2025 Registered Referred Lasha Pro MD [facility] Start: 02-19-2025 End: 02-19-2025 ambulatory Lasha VASQUEZ Facility:[facility] Start: 02-12-2025 ambulatory Lasha VASQUEZ Fa cility:[facility] Start: 02-12-2025 [facility] Start: 01-22-2025 End: 01-22-[address] Carl Encarnacion MD Work Phone: [facility] Start: 01-22-2025 End: 01-22-2025 [facility] Start: 01-22-2025 [facility] Start: 01-22-2025 End: 01-22-2025 ambulatory Lasha VASQUEZ Facility:[facility] Start: 01-18-2025 ambulatory Lasha VASQUEZ Fa cility:[facility] Start: 01-18-2025 Registered Referred Lasha Pro MD [facility] Start: 01-09-2025 End: 01-09-[address] Carl Encarnacion MD Work Phone: [facility] Start: 01-09-2025 End: 01-09-[address] Lasha Pro MD [facility] Work Phone: Start: 12-11-2024 End: 12-11-[address] Carl Encarnacion MD Work Phone: [facility] Start: 12-11-2024 End: 12-11-2024 [facility] Start: 12-11-2024 End: 12-11-2024 Departed Referred Lasha Pro MD [facility] Start: 12-11-2024 End: 12-11-2024 ambulatory Lasha VASQUEZ Facility:[facility] Start: 12-05-2024 End: 12-05-2024 ambulatory Carl [facility] Facility:[facility] Start: 12-05-2024 End: 12-05-2024 Patient encounter procedure Savi Tavares [facility] Work Phone: Start: 12-05-2024 End: 12-05-2024 Departed Referred Lasha Pro MD [facility] Start: 12-04-2024 End: 12-04-[address] Ronen Espinoza DO [facility] Work Phone: Start: 12-04-2024 End: 12-05-2024 ambulatory Lasha VASQUEZ Facility:[facility] Start: 11-22-2024 End: 11-22-2024 ambulatory [facility] Facility:[facility] Start: 11-22-2024 End: 11-22-2024 Patient encounter procedure Savi THURSTON [facility] Work Phone: Start: 11-17-2024 End: 11-17-2024 ambulatory Carl Encarnacion Facility:[facility] Start: 11-17-2024 End: 11-17-2024 [facility] Start: 11-07-2024 End: 11-07-2024 ambulatory [facility] Facility:[facility] Start: 11-07-2024 End: 11-07-[address] Lasha Pro MD -[facility] Work Phone: Start: 11-02-2024 End: 11-02-[address] Carl Encarnacion MD Work Phone: [facility] Work Phone: Start: 11-02-2024 End: 11-02-2024 [facility] Start: 11-02-2024 [facility] Start: 11-02-2024 End: 11-02-2024 ambulatory Lasha VASQUEZ Facility:[facility] Start: 10-30-2024 End: 10-30-[address] Carl Encarnacion MD Work Phone: [facility] Work Phone: Start: 10-30-2024 End: 10-30-2024 [facility] Start: 10-30-2024 [facility] Start: 10-30-2024 End: 10-30-2024 ambulatory Lasha VASQUEZ Facility:[facility] Start: 10-19-2024 End: 10-19-20[facility] Start: 10-19-2024 End: 10-19-2024 Patient encounter procedure Jim SANTOS -[facility] Work Phone: Start: 10-16-2024 End: 10-16-[address] Carl Encarnacion MD Work Phone: [facility] Work Phone: Start: 10-16-2024 End: 10-16-2024 Departed Referred Lasha Pro MD -[facility] Start: 10-16-2024 End: 10-16-2024 ambulatory Efewongbe Oleghe OLS Facility:[facility] Start: 09-27-2024 Registered Referred Lasha Pro MD [facility] Start: 09-27-2024 End: 09-27-2024 ambulatory Carl Encarnacion Facility:[facility] Start: 09-27-2024 End: 09-27-2024 Patient encounter procedure Savi THURSTON -[facility] Work Phone: Start: 09-25-2024 ambulatory Efewongbe Oleghe OLS Fa cility:[facility] Start: 09-25-2024 Registered Referred Lasha Pro MD [facility] Start: 09-18-2024 ambulatory Efewongbe Oleghe OLS Fa cility:[facility] Start: 09-18-2024 Registered Referred Lasha Pro MD [facility] Start: 09-14-2024 ambulatory Efewongbe Oleghe OLS Fa cility:[facility] Start: 09-14-2024 Registered Referred Lasha Pro MD [facility] Start: 09-12-2024 End: 09-12-2024 ambulatory Efewongbe Olehelene Facility:[facility] Start: 09-12-2024 End: 09-12-[address] Lasha Pro MD -[facility] Work Phone: Start: 09-03-2024 ambulatory Efewongphilip Graye OLS Fa cility:[facility] Start: 09-03-2024 [facility] Start: 08-15-[address] ZACKARY WALLER MD Facility:[facility] Start: 08-11-2024 End: 08-11-2024 ambulatory Carl Encarnacion Facility:[facility] Start: 08-11-2024 End: 08-11-2024 Patient encounter procedure Savi THURSTON -[facility] Work Phone: Start: 08-07-2024 ambulatory Lasha VASQUEZ Fa cility:[facility] Start: 08-07-2024 Registered Referred Lasha Pro MD -[facility] Start: 07-11-2024 End: 07-11-2024 ambulatory Carl Encarnacion Facility:[facility] Start: 06-22-2024 End: 06-22-2024 ambulatory Carl Encarnacion Facility:[facility] Start: 02-15-2024 Refill Carl cassidy MD Work Phone: [facility] Comment on above: Refill Request Start: 02-05-2024 End: 02-14-2024 Evaluation and management of inpatient ANNELIESE CHAIREZ DO [facility] Start: 02-01-2024 End: 02-05-2024 Evaluation and management of inpatient STEFANOKAI BUTTELGIN TABLEMAN-ORTHOPEDIC NURSE [facility] Start: 01-25-2024 ambulatory Carl cassidy MD Work Phone: [facility] Start: 01-22-2024 End: 02-01-2024 Evaluation and management of inpatient USMAN CHILDS MD FACP [facility] Start: 01-20-2024 Chart abstracting Carl barragan MD Work Phone: [facility] Comment on above: Outside Heart Cath Start: 01-13-2024 End: 01-13-2024 ambulatory CARL ENCARNACION Facility:[facility] Start: 01-11-2024 Telephone encounter Carl Encarnacion MD Work Phone: [facility] Comment on above: Patient Update Start: 01-07-2024 Telephone encounter Ester Bejarano APRN.VALLEZ FILTER OPERATOR Work Phone: [facility] Comment on above: Medication Problem Start: 01-06-2024 Telephone encounter Ester Bejarano APRN.VALLEZ FILTER OPERATOR Work Phone: [facility] Comment on above: Results OT Update Start: 01-04-2024 Refill Carl cassidy MD Work Phone: [facility] Comment on above: Refill Request Start: 12-25-2023 Home visit Carl cassidy MD Work Phone: [facility] Comment on above: Essential hypertensi on, malignant (Primary Dx) Start: 12-21-2023 Chart abstracting Carl barragan MD Work Phone: [facility] Comment on above: Ext / Discharge Summ edwina Start: 12-16-2023 Telephone encounter Ester Bejarano APRN.VALLEZ FILTER OPERATOR Work Phone: [facility] Start: 12-15-2023 Telephone encounter Carl Encanracion MD Work Phone: [facility] Start: 12-14-2023 Telephone encounter Carl Encarnacion MD Work Phone: [facility] Comment on above: Patient Update from [facility] Start: 12-14-2023 End: 12-14-2023 ambulatory CARL ENCARNACION Facility:[facility] Start: 12-13-2023 Telephone encounter Carl Encarnacion MD Work Phone: [facility] Comment on above: [facility]-ve rbal ordes requeted Start: 12-13-2023 End: 12-13-2023 Office outpatient visit 15 minutes Ester Bejarano APRN.VALLEZ FILTER OPERATOR Work Phone: [facility] Comment on above: Recurrent UTI (urina ry tract infection) (Primary Dx); Essential hypertension; Malignant neoplasm of ovary, unspecified laterality (HCC); Aortic stenosis, moderate Start: 12-13-2023 End: 01-11-2024 ambulatory CARL ENCARNACION Facility:[facility] Start: 12-06-2023 Refill Carl cassidy MD Work Phone: [facility] Comment on above: Refill Request Start: 11-26-2023 End: 12-11-2023 Evaluation and management of inpatient USMAN CHILDS MD [facility] Start: 11-26-2023 Non-patient / Non-visit Dr. Deandre Encarnacion Work Phone: [facility] Work Phone: Start: 11-25-2023 Non-patient / Non-visit Dr. Deandre Encarnacion Work Phone: [facility] Work Phone: Start: 11-24-2023 Chart abstracting [facility] Comment on above: Hospital Admission Start: 11-24-2023 Non-patient / Non-visit Dr. Deandre Encarnacion Work Phone: [facility] Work Phone: Start: 11-23-2023 End: 11-26-2023 [facility] Work Phone: Start: 10-07-2023 Refill Carl cassidy MD Work Phone: [facility] Comment on above: Refill Request Start: 09-16-[address] ZACKARY WALLER MD Facility:[facility] Start: 09-09-2023 End: 09-09-[address] ZACKARY WALLER MD Facility:[facility] Start: 09-09-2023 End: 09-09-[address] ZACKARY WALLER MD [facility] Start: 08-18-2023 End: 08-18-2023 ambulatory CARL ENCARNACION Facility:[facility] Start: 07-26-2023 End: 07-26-2023 Patient encounter procedure Prosper Amador Work Phone: [facility] Start: 07-26-2023 End: 07-26-2023 ambulatory Prosper Amador Work Phone: Hematology/Oncology Comment on above: 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) Start: 07-16-2023 Telephone encounter Wilmar perales DO Work Phone: Hematology/Oncology Start: 07-14-2023 End: 07-14-2023 ambulatory CARL ENCARNACION Facility:[facility] Start: 07-13-2023 Orders Only Wilmar Davies Work Phone: Hematology/Oncology Comment on above: 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) Start: 07-12-2023 Telephone encounter Carl Encarnacion MD Work Phone: [facility] Comment on above: Medication Problem Start: 07-07-2023 End: 07-07-2023 Patient encounter procedure Wilmar Forbes DO Work Phone: [facility] Start: 07-07-2023 End: 07-07-2023 ambulatory Wilmar Forbes DO Work Phone: Hematology/Oncology Comment on above: 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) Start: 06-17-2023 Telephone encounter Korin Mantilla RN He matology/Oncology Comment on above: Clinical Education Assistant - O ther (Toxicity Check (Carboplatin)) Start: 06-11-2023 Telephone encounter Korin Eduardo matology/Oncology Comment on above: Clinical Education Assistant - O ther (C1D1 Post Treatment Call (Carboplatin) ) Medication Problem Start: 06-10-2023 End: 06-10-2023 ambulatory CARL ENCARNACION Facility:[facility] Start: 06-07-2023 Refill Carl cassidy MD Work Phone: [facility] Comment on above: Refill Request Clinical Education Assistant - O ther (Orders ) Start: 06-04-2023 End: 06-04-2023 sap pi developer [facility] Work Phone: Hematology/Oncology Comment on above: Encounter for educat ion (Primary Dx) Start: 06-02-2023 End: 06-02-2023 ambulatory Wilmar Forbes DO Work Phone: Hematology/Oncology Comment on above: Ovarian cancer on ri ght (HCC) (Primary Dx) Start: 06-02-2023 End: 06-02-2023 Patient encounter procedure Wilmar Forbes DO Work Phone: [facility] Start: 06-02-2023 Telephone encounter Korin Mantilla RN He matology/Oncology Comment on above: Clinical Education Assistant - O ther (Introduction ) AVS 06/02/23, CHEMO START Start: 05-31-2023 Home visit Carl cassidy MD Work Phone: [facility] Comment on above: 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 (Primary Dx) Start: 05-17-2023 End: 05-17-2023 ambulatory CARL ENCARNACION Facility:[facility] Start: 05-13-2023 Telephone encounter Carl Encarnacion MD Work Phone: Family [facility] Comment on above: Nursing Plan of Care Start: 05-03-2023 End: 05-03-2023 ambulatory Eliot Castillo MD Work Phone: Gynecology Comment on above: Ovarian cancer on ri ght (HCC) (Primary Dx); Post-operative state Start: 05-03-2023 End: 05-03-2023 Patient encounter procedure Eliot Castillo MD Work Phone: [facility] Start: 05-03-2023 End: 05-03-2023 ambulatory CARL ENCARNACION Facility:[facility] Start: 05-01-2023 Refill Annmarie fair APRN.ORTHOPEDIC NURSE Work Phone: [facility] Comment on above: Refill Request Start: 04-09-2023 Telephone encounter Annmarie garcia APRN.ORTHOPEDIC NURSE Work Phone: [facility] Comment on above: home health calling Start: 04-07-2023 Encounter for other preprocedural examination ELIOT Lanier ANNA [facility] Start: 04-07-2023 End: 04-14-2023 Evaluation and management of inpatient ELIOT CASTILLO Facility:[facility] Start: 04-06-2023 End: 04-06-2023 Admission to [facility] Start: 04-06-2023 Encounter for other preprocedural examination ELIOT CASTILLO [facility] Start: 04-06-2023 End: 04-06-2023 ambulatory Ousmane Jones APRN.ROGE CLEMONS Work Phone: Pre Anesthesia Comment on above: preop instructions Pre-op evaluation (P rimary Dx); Acquired hypothyroidism; Essential hypertension; Gastroesophageal reflux disease without esophagitis; History of pulmonary embolism; Aortic stenosis, moderate Start: 04-06-2023 E-mail encounter fro m caregiver Ousmane Jones APRN.ROGE CLEMONS Work Phone: [facility] Start: 04-06-2023 End: 04-06-2023 Preprocedural examination done Ousmane Jones APRN.CNP, DNP Work Phone: [facility] Work Phone: Start: 04-06-2023 Telephone encounter Ousmane stone APRN.CNP, DNP Work Phone: Pre Anesthesia Start: 03-24-2023 Telephone encounter Dari moreno MD Work Phone: [facility] Comment on above: Appointment Patient Update Start: 03-23-2023 End: 03-23-2023 ambulatory CARL David SHANNONEY Facility:[facility] Start: 03-22-2023 End: 03-22-2023 Preprocedural examination done Annmarie Mendoza APRN.CNP Work Phone: [facility] Work Phone: Start: 03-22-2023 Telephone encounter Tuyet Lorenz RN Gy necology Comment on above: Pre op instructions Results Start: 03-22-2023 End: 03-22-2023 Subsequent hospital visit by physician Xr [facility] Radiology Comment on above: Ovarian mass [N83.8] Start: 03-16-2023 Telephone encounter Ely oshea MD Work Phone: OB/Gynecology Comment on above: Referral Information Start: 03-09-2023 End: 03-09-2023 ambulatory CARL ENCARNACION Facility:[facility] Start: 03-09-2023 End: 03-09-2023 ambulatory CARL ENCARNACION Facility:[facility] Start: 03-09-2023 End: 03-09-2023 Subsequent hospital visit by physician [facility] (I-Stat) Work Phone: Cat Scan Comment on above: Pelvic mass [R19.00] Start: 03-02-2023 End: 03-02-2023 [facility] Work Phone: Start: 03-02-2023 End: 03-02-[address] [facility], Specimen Work Phone: Start: 02-08-2023 Refill Carl cassidy MD Work Phone: [facility] Comment on above: Refill Request Start: 02-02-2023 End: 02-02-2023 ambulatory America Camejo PT [facility] Physical Therapy Comment on above: Sciatica, right side (Primary Dx); Falls, subsequent encounter Start: 02-02-2023 Telephone encounter Kristen brewer PA-C Work Phone: [facility] Comment on above: Results Start: 01-27-2023 End: 01-27-2023 Subsequent hospital visit by physician Xr [facility] Work Phone: Radiology Comment on above: Sciatica, right side [M54.31] Start: 01-27-2023 End: 01-27-2023 ambulatory CARL ENCARNACION Facility:[facility] Start: 01-27-2023 End: 01-27-2023 Patient encounter procedure Kristen Eugene PA-C Work Phone: [facility] Comment on above: Sciatica, right side (Primary Dx); Fall, subsequent encounter Start: 01-25-2023 Telephone encounter Kristen brewer PA-C Work Phone: [facility] Comment on above: Results Start: 01-21-2023 Telephone encounter Carl Encarnacion MD Work Phone: [facility] Comment on above: Results Start: 01-12-2023 End: 01-12-2023 Emergency department patient visit [facility] Start: 01-12-2023 End: 01-12-2023 Patient encounter procedure Barrera Daley APRN.ORTHOPEDIC NURSE Work Phone: [facility] Comment on above: Severe back pain (Pr imary Dx); Fall, initial encounter Start: 11-06-2022 Refill Carl cassidy MD Work Phone: [facility] Comment on above: Refill Request Start: 09-10-2022 Refill Carl cassidy MD Work Phone: [facility] Comment on above: Refill Request Start: 07-20-2022 Telephone encounter Barrera greene APRN.ORTHOPEDIC NURSE Work Phone: [facility] Comment on above: Results Start: 07-20-2022 End: 07-20-2022 Subsequent hospital visit by physician Xr [facility] Work Phone: Radiology Comment on above: Acute cough [R05.1] Start: 07-19-2022 End: 07-19-2022 Patient encounter procedure Isabel Roca APRN.ORTHOPEDIC NURSE Work Phone: [facility] Comment on above: Acute cough (Primary Dx); Wheezing Start: 06-29-2022 Telephone encounter Carl Encarnacion MD Work Phone: [facility] Comment on above: Results Start: 06-26-2022 End: 06-26-2022 Patient encounter procedure Carl Encarnacion MD Work Phone: [facility] Comment on above: Essential hypertensi on (Primary Dx); Mixed hyperlipidemia; Gastroesophageal reflux disease without esophagitis; Acquired hypothyroidism; Aortic stenosis, moderate; Osteoarthritis of multiple joints, unspecified osteoarthritis type; Encounter for immunization; Advance directive discussed with patient Start: 06-10-2022 Refill Carl cassidy MD Work Phone: [address] [place] [address] Comment on above: Refill Request Start: 06-05-2022 Refill Carl cassidy MD Work Phone: [facility] Comment on above: Refill Request Start: 05-25-2022 Telephone encounter Carl Encarnacion MD Work Phone: [facility] Comment on above: patient refused test ing Start: 05-13-2022 Telephone encounter Carl Encarnacion MD Work Phone: [facility] Comment on above: Orders Start: 05-01-2022 Telephone encounter Carl Encarnacion MD Work Phone: [facility] Comment on above: returning oxygen (Re turning oxygen to [facility]AS[employer]) Start: 03-16-2022 Telephone encounter Carl Encarnacion MD Work Phone: [facility] Comment on above: Patient Question Start: 03-13-2022 Refill Carl cassidy MD Work Phone: [facility] Comment on above: Prescription Refills Start: 12-15-2021 Telephone encounter [facility] Comment on above: Results Start: 12-12-2021 End: 12-12-2021 Patient encounter procedure Carl Encarnacion MD Work Phone: [facility] Comment on above: Essential hypertensi on (Primary Dx); Mixed hyperlipidemia; Acquired hypothyroidism; History of pulmonary embolism; Gastroesophageal reflux disease without esophagitis; Osteoarthritis of multiple joints, unspecified osteoarthritis type; Medication management Start: 11-28-2021 Refill Carl cassidy MD Work Phone: [facility] Comment on above: Refill Request Start: 11-17-2021 Telephone encounter Carl Encarnacion MD Work Phone: [facility] Comment on above: urine culture Start: 11-12-2021 Telephone encounter Carl Encarnacion MD Work Phone: [facility] Comment on above: Results Start: 08-07-2021 Patient encounter procedure Carl Encarnacion MD Work Phone: [facility] Work Phone: Start: 06-19-[address] [facility] Start: 02-05-2021 Patient encounter status Tenisha Encarnacion MD Work Phone: [facility] Work Phone: Procedures Date Procedure Procedure Detail [...] Start: 01-21-2024 Cardiac catheterization USMAN CHILDS MD FAC Start: 11-23-[address] Tenisha Encarnacion Work Phone: Start: 11-23-2023 Plain chest X-ray Start: 09-09-2023 Echocardiography USMAN CHILDS MD FAC Comment on above: Summary: 1. Left ventricle: [...] ast 12 lds i&r only Annmarie Mendoza APRN.[facility] Work Phone: Start: 03-09-2023 Ct abdomen & pelvis w/contrast material Carl Encarnacion MD Work Phone: Start: 01-27-2023 Radex spine lumbosac ral 2/3 views Kristen Eugene PA-C Work Phone: Start: 01-12-2023 X-ray of lumbar spin e, two or three views Start: 07-20-2022 Radiologic exam ches t 2 views Isabel Jansen APRN.[facility] Work Phone: Start: 06-26-2022 INFLUENZA SEASONAL QUADRIVALENT HIGH DOSE AGE 65+ Carl Encarnacion MD Work Phone: Start: 06-26-2022 PFIZER-BIONTXimoXi COVI D-19 BIVALENT BOOSTER VACCINE, AGE 12+ YR Carl Encarnacion MD Work Phone: Extraction of cataract DR KOBY WALLER MD Plan of Treatment Date Care Activity Detail Author Start: 08-18-2026 Diabetes Screening Diabetes Screenin [facility] Start: 07-26-2026 Diabetes Screening Diabetes Screenin g [facility] Start: 07-14-2026 Diabetes Screening Diabetes Screenin g [facility] Start: 07-07-2026 Diabetes Screening Diabetes Screenin g [facility] Start: 06-10-2026 Diabetes Screening Diabetes Screenin g [facility] Start: 06-02-2026 Diabetes Screening Diabetes Screenin g [facility] Start: 04-14-2026 Diabetes Screening Diabetes Screenin g [facility] Start: 04-12-2026 DIABETES SCREEN DIABETES SCREEN [facility] Start: 03-22-2026 DIABETES SCREEN DIABETES SCREEN [facility] Start: 01-15-2026 DIABETES SCREEN DIABETES SCREEN [facility] Start: 05-28-2025 Registered Referred Registered Refer [facility] Start: 12-12-2024 DIABETES SCREEN DIABETES SCREEN [facility] Start: 08-12-2024 DIABETES SCREEN DIABETES SCREEN [facility] Start: 04-09-2024 Covid-19 Vaccine ( season) Covid-19 Vaccine () [facility] Start: 04-09-2024 Covid-19 Vaccine ( season) Covid-19 Vaccine () [facility] Start: 04-09-2024 Influenza vaccination Influenza Vacc ine (#1) [facility] Start: 02-17-2024 End: 02-17-2024 Patient encounter procedure 02/17/2024 10:20 AM EDT Office [facility] [address] [place], [place] [id number] Kristen Eugene PA-C [address] [place], [place] [phone] Medicare wellness [facility] Comment on above: Medicare wellness Start: 01-13-2024 End: 04-13-2024 Bacteria identified in Urine by Culture URINE CULTURE Microbiology Routine Recurrent UTI (urinary tract infection) Expected: 01/13/2024, Expires: 04/13/2024 [facility] Work Phone: Comment on above: Expected: 01/13/2024 , Expires: 04/13/2024 Start: 12-23-2023 End: 03-23-2024 Bacteria identified in Urine by Culture URINE CULTURE Microbiology Routine Recurrent UTI (urinary tract infection) Expected: 12/23/2023, Expires: 03/23/2024 [facility] Work Phone: Comment on above: Expected: 12/23/2023 , Expires: 03/23/2024 Start: 12-13-2023 End: 03-13-2024 Bacteria identified in Urine by Culture URINE CULTURE Microbiology Routine Recurrent UTI (urinary tract infection) Expected: 12/13/2023, Expires: 03/13/2024 [facility] Work Phone: Comment on above: Expected: 12/13/2023 , Expires: 03/13/2024 Start: 12-13-2023 End: 03-13-2024 URINALYSIS, REFLEX MICROSCOPIC URINALYSIS, REFLEX MICROSCOPIC Lab Routine Recurrent UTI (urinary tract infection) Expected: 12/13/2023, Expires: 03/13/2024 [facility] Comment on above: Expected: 12/13/2023 , Expires: 03/13/2024 Start: 11-26-2023 Patient discharge [facility] Start: 11-24-2023 Referral to service [facility] Start: 11-23-2023 Bacteria identified in Urine by Culture [facility] Start: 11-23-2023 Following clinical p athway protocol [facility] Start: 11-23-[address] [facility] Start: 11-23-2023 Assessment of risk o f venous thromboembolism [facility] Start: 11-23-2023 Insertion of cathete r into peripheral vein [facility] Start: 11-23-2023 Providing care accor ding to standard [facility] Start: 11-23-2023 Referral to occupati onal therapist [facility] Start: 11-23-2023 Referral to service [facility] Start: 11-23-2023 [facility] Start: 11-23-2023 Hospital admission, emergency, from emergency room, medical nature [facility] Start: 11-23-2023 Verification routine [facility] Start: 11-23-2023 Admission procedure [facility] Start: 11-23-2023 [facility] Start: 11-23-2023 [facility] Start: 08-09-2023 Advance Directive Discussion Advance Directive Discussion [facility] Start: 08-09-2023 Behavioral Health Screening Behavioral Health Screening [facility] Start: 08-09-2023 Depression Assessment Depression Ass essment [facility] Start: 07-14-2023 End: 10-13-2023 Basic metabolic 2000 panel - Serum or Plasma BASIC METABOLIC PNL Lab STAT Malignant neoplasm of right ovary (HCC) Expected: 07/14/2023, Expires: 10/13/2023 [facility] Work Phone: Comment on above: Expected: 07/14/2023 , Expires: 10/13/2023 Start: 07-12-2023 Covid-19 Vaccine () Covid-19 Vaccine () [facility] Start: 06-26-2023 Shingrix Vaccine (1 of 2) Hoff grix Vaccine (1 of 2) [facility] Comment on above: Postponed from 01/21 (Insurance Coverage) Start: 06-26-2023 SHINGRIX VACCINE (2 of 3) HOFF GRIX VACCINE (2 of 3) [facility] Comment on above: Postponed from 01/21 (Insurance Coverage) Start: 06-26-2023 Urine microalbumin profile [facility] Comment on above: Postponed from 03/17 (Insurance Coverage) Start: 06-18-2023 End: 09-17-2023 Basic metabolic 2000 panel - Serum or Plasma BASIC METABOLIC PNL Lab STAT 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 (HCC) Expected: 06/18/2023, Expires: 09/17/2023 [facility] Work Phone: Comment on above: Expected: 06/18/2023 , Expires: 09/17/2023 Start: 06-07-2023 End: 09-06-2023 PAULINE ISTAT BMP PAULINE ISTAT BMP Lab STAT 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 (HCC) Expected: 06/07/2023, Expires: 09/06/2023 [facility] Work Phone: Comment on above: Expected: 06/07/2023 , Expires: 09/06/2023 Start: 04-09-2023 Influenza vaccination [facility] Start: 01-25-2023 End: 03-27-2023 Bacteria identified in Urine by Culture URINE CULTURE Microbiology Routine Urinary frequency Expected: 01/25/2023, Expires: 03/27/2023 [facility] Work Phone: Comment on above: Expected: 01/25/2023 , Expires: 03/27/2023 Start: 10-24-2022 COVID-19 VACCINE (5 - Mixed Product series) COVID-19 VACCINE (5 - Mixed Product series) [facility] Start: 08-09-2022 ADVANCE DIRECTIVE DISCUSSION ADVANCE DIRECTIVE DISCUSSION [facility] Start: 08-09-2022 DEPRESSION ASSESSMENT DEPRESSION ASS ESSMENT [facility] Start: 04-09-2022 Influenza vaccination INFLUENZA (#1) [facility] Start: 12-10-2021 COVID-19 VACCINE (4 - Booster) COVID-19 VACCINE (4 - Booster) [facility] Start: 11-12-2021 End: 01-12-2022 Bacteria identified in Urine by Culture URINE CULTURE Microbiology Routine Frequent UTI Confusion Expected: 11/12/2021, Expires: 01/12/2022 [facility] Work Phone: Comment on above: Expected: 11/12/2021 , Expires: 01/12/2022 Start: 11-12-2021 End: 01-12-2022 Urinalysis complete panel - Urine URINALYSIS, WITH MICROSCOPIC Lab Routine Frequent UTI Confusion Expected: 11/12/2021, Expires: 01/12/2022 [facility] Work Phone: Comment on above: Expected: 11/12/2021 , Expires: 01/12/2022 Start: 10-07-2021 COVID-19 VACCINE (4 - Booster) COVID-19 VACCINE (4 - Booster) [facility] Start: 08-09-2021 ADVANCE DIRECTIVE DISCUSSION ADVANCE DIRECTIVE DISCUSSION [facility] Start: 08-09-2021 DEPRESSION ASSESSMENT DEPRESSION ASS ESSMENT [facility] Start: 2014 RSV Vaccine (1 - 1-d ose 75+ series) RSV Vaccine (1 - 1-dose 75+ series) [facility] Start: 01-22-2012 Shingrix Vaccine (1 of 2) Hoff grix Vaccine (1 of 2) [facility] Start: 01-22-2012 SHINGRIX VACCINE (2 of 3) HOFF GRIX VACCINE (2 of 3) [facility] Start: 10-22-2005 Screening for malign ant neoplasm of cervix Cervical Cancer Screening [facility] Start: 1999 RSV Vaccine (1 - 1-d ose 60+ series) RSV Vaccine (1 - 1-dose 60+ series) [facility] Start: 1958 Urine microalbumin profile [facility] Start: 1957 Anxiety Screening Anxiety Screening [facility] Start: 1957 Depression Screening Depression Scre ening [facility] End: 06-06-2024 Cancer Ag 125 [Units/volume] in Serum or Plasma CA 125 BLD Lab Routine 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 (HCC) Every 3 weeks for 30 Occurrences starting 06/07/2023 until 06/06/2024 [facility] Work Phone: Comment on above: Every 3 weeks for 30 Occurrences starting 06/07/2023 until 06/06/2024 End: 06-06-2024 CBC W Auto Differential panel - Blood CBC + DIFF Lab STAT 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 (HCC) Every 3 weeks for 30 Occurrences starting 06/07/2023 until 06/06/2024 [facility] Work Phone: Comment on above: Every 3 weeks for 30 Occurrences starting 06/07/2023 until 06/06/2024 End: 06-06-2024 Comprehensive metabolic 2000 panel - Serum or Plasma COMP METABOLIC PANEL Lab STAT 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 (HCC) Every 3 weeks for 30 Occurrences starting 06/07/2023 until 06/06/2024 [facility] Work Phone: Comment on above: Every 3 weeks for 30 Occurrences starting 06/07/2023 until 06/06/2024 End: 03-22-2024 Echocardiography ECHO Cardiology KARLENE Preop examination 1 Occurrences starting 03/22/2023 until 03/22/2024 [facility] Work Phone: Comment on above: 1 Occurrences starti ng 03/22/2023 until 03/22/2024 End: 06-06-2024 Magnesium [Mass/volume] in Serum or Plasma MAGNESIUM BLD Lab Routine 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 (HCC) Every 3 weeks for 30 Occurrences starting 06/07/2023 until 06/06/2024 [facility] Work Phone: Comment on above: Every 3 weeks for 30 Occurrences starting 06/07/2023 until 06/06/2024 OXIMETRY - NOCTURNAL OXIMETRY - NOCTURNAL Procedures Routine Hypoxia Ordered: 05/01/2022 [facility] Work Phone: Comment on above: Ordered: 05/01/2022 End: 05-31-2023 OXIMETRY WITH AMBULATION OXIMETRY WITH AMBULATION PFT Routine Hypoxia 1 Occurrences starting 05/01/2022 until 05/31/2023 [facility] Work Phone: Comment on above: 1 Occurrences starti ng 05/01/2022 until 05/31/2023 PAIN PANEL, UR QUANT PAIN PANEL, UR QUANT Lab Routine Osteoarthritis of multiple joints, unspecified osteoarthritis type Medication management Ordered: 12/12/2021 [facility] Work Phone: Comment on above: Ordered: 12/12/2021 PAIN PANEL, UR QUANT PAIN PANEL, UR QUANT Lab Routine Osteoarthritis of multiple joints, unspecified osteoarthritis type Medication management Ordered: 12/12/2021 [facility] Work Phone: Comment on above: Ordered: 12/12/2021 Patient Education ED Back Sprain/Strain [facility] Work Phone: Patient referral [facility] Work Phone: PT PLAN OF CARE CERTIFICATION PT PLAN OF CARE CERTIFICATION Procedures Routine Sciatica, right side Falls, subsequent encounter Ordered: 02/02/2023 [facility] Comment on above: Ordered: 02/02/2023 End: 02-26-2024 Radex spine lumbosacral 2/3 views XR LUMBAR GENERAL 3V AP/LAT/L5-S1 Radiology Routine Sciatica, right side Fall, subsequent encounter 1 Occurrences starting 01/27/2023 until 02/26/2024 [facility] Work Phone: Comment on above: 1 Occurrences starti ng 01/27/2023 until 02/26/2024 Radex spine lumbosac ral 2/3 views XR LUMBAR GENERAL 3V AP/LAT/L5-S1 Radiology Routine Sciatica, right side Fall, subsequent encounter 01/27/2023 12:01 PM EDT [facility] Work Phone: End: 08-18-2023 Radiologic exam chest 2 views XR CHEST 2V FRONTAL/LAT Radiology STAT Acute cough Wheezing 1 Occurrences starting 07/19/2022 until 08/18/2023 [facility] Work Phone: Comment on above: 1 Occurrences starti ng 07/19/2022 until 08/18/2023 Radiologic exam ches t 2 views XR CHEST 2V FRONTAL/LAT Radiology Routine Ovarian mass Preop examination 03/22/2023 1:40 PM EDT [facility] Work Phone: SPECIMEN VALIDITY, URINE SPECIME N VALIDITY, URINE Lab Routine Osteoarthritis of multiple joints, unspecified osteoarthritis type Medication management Ordered: 12/12/2021 [facility] Work Phone: Comment on above: Ordered: 12/12/2021 TOX SCREEN ROUT UR TOX SCREEN RO UT UR Lab Routine Osteoarthritis of multiple joints, unspecified osteoarthritis type Medication management Ordered: 12/12/2021 [facility] Work Phone: Comment on above: Ordered: 12/12/2021 [facility] Immunizations Immunization Date Immunization Notes Care Provider Jt vidal 05-17-2023 COVID-19 vaccine, ag e 12+ yr, season (Bangcle) Carl Encarnacion MD Work Phone: [facility] 05-17-2023 influenza (HD-IIV4) vaccine, age 65+ yr, high dose, quadrivalent, PF (FLUZONE HIGH-DOSE) Carl Encarnacion MD Work Phone: [facility] 05-17-2023 influenza virus vacc ine, unspecified formulation USMAN CHILDS MD FACP [facility] 05-17-2023 SARS-CoV-2 (COVID-19 ) [id number] USMAN CHILDS MD [facility] Comment on above: Result Comment: 2023: TPV80 06-26-2022 COVID-19 booster vaccine, age 12+ yr, bivalent (PFIZER-BIONTECH) Carl Encarnacion MD Work Phone: [facility] 06-26-2022 influenza, high-dose , quadrivalent vaccine (FLUZONE HIGH DOSE QUADRIVALENT) Carl Encarnacion MD Work Phone: [facility] 06-26-2022 influenza virus vacc ine, unspecified formulation Annmarie Tucker APRN.[facility] Work Phone: [facility] 08-12-2021 COVID-19 vaccine, ag e 12+ yr (PFIZER-BIONTECH - PURPLE TOP) Carl Encarnacion MD Work Phone: [facility] Work Phone: Comment on above: Result Comment: 2023: INDIVIDUALS OVER 80 YEARS OF AGE 1005-31-2021 influenza virus vacc ine, unspecified formulation USMAN CHILDS MD [facility] 05-31-2021 influenza, injectabl e, quadrivalent, preservative free [facility] 05-31-2021 influenza, seasonal, injectable [facility] 09-29-2020 COVID-19 vaccine, ag e 12+ yr (PFIZER-BIONTECH - PURPLE TOP) Carl Encarnacion MD Work Phone: [facility] Work Phone: Comment on above: Result Comment: 2023: TPV80 09-05-2020 Covid (Pfizer) [facility] Comment on above: Result Comment: 2023: TPV80 09-05-2020 COVID-19 vaccine, fu ll dose (MODERNA) Carl Encarnacion MD Work Phone: [facility] Work Phone: 06-15-2020 influenza virus vacc ine, unspecified formulation USMAN CHILDS MD FAC [facility] 06-15-2020 influenza, injectabl e, quadrivalent, contains preservative Carl Encarnacion MD Work Phone: [facility] 05-08-2019 influenza virus vacc ine, unspecified formulation USMAN CHILDS MD FACP [facility] 05-08-2019 influenza, high dose seasonal, preservative-free Carl Encarnacion MD Work Phone: [facility] 05-10-2018 influenza virus vacc ine, unspecified formulation USMAN CHILDS MD FAC [facility] 05-10-2018 influenza, high dose seasonal, preservative-free Carl Encarnacion MD Work Phone: [facility] 05-17-2017 influenza virus vacc ine, unspecified formulation USMAN CHILDS MD FAC [facility] 05-17-2017 influenza, high dose seasonal, preservative-free Carl Encarnacion MD Work Phone: [facility] 02-26-2017 pneumococcal polysaccharide vaccine, 23 valent Carl Encarnacion MD Work Phone: [facility] 05-13-2016 influenza virus vacc ine, unspecified formulation USMAN CHILDS MD FAC [facility] 05-13-2016 influenza, high dose seasonal, preservative-free Carl Encarnacion MD Work Phone: [facility] 02-27-2016 pneumococcal conjuga te vaccine, 13 valent Carl Encarnacion MD Work Phone: [facility] 07-16-2015 influenza virus vacc ine, unspecified formulation USMAN CHILDS MD [facility] 07-16-2015 influenza, injectabl e, quadrivalent, contains preservative Carl Encarnacion MD Work Phone: [facility] Work Phone: 05-11-2014 influenza virus vacc ine, unspecified formulation USMAN CHILDS MD [facility] 05-11-2014 influenza, seasonal, injectable Carl Encarnacion MD Work Phone: [facility] Work Phone: 07-17-2013 influenza virus vacc ine, unspecified formulation Carl Encarnacion MD Work Phone: [facility] Work Phone: 07-09-2012 influenza virus vacc ine, unspecified formulation Carl Encarnacion MD Work Phone: [facility] Work Phone: 11-27-2011 zoster vaccine, live Carl Encarnacion MD Work Phone: [facility] 06-24-2010 influenza virus vacc ine, unspecified formulation Carl Encarnacion MD Work Phone: [facility] 07-13-2006 influenza virus vacc ine, unspecified formulation Carl Encarnacion MD Work Phone: [facility] Work Phone: 07-13-2006 pneumococcal polysaccharide vaccine, 23 francine Encarnacion MD Work Phone: [facility] Work Phone: Payers Date Payer Category Payer Self-pay [id number] 2024 Private Health Insurance [facility] [id number] 2024 Medicaid [id number] 2023 Medicare [id number] 2021 Unknown ANTHEM BLUE CROS S AND BLUE SHIELD ANTHEM MEDIBLUE ACCESS [id number] 2021-Present [phone] [address] [place] [address] PPO [id number]. [id number] 2021 Unknown [id number]. 1.13.159.2. [id number] 2021 Medicare [id number] 2015 Unknown HOSPITAL/MEDICAL GENERIC MEDICAL GENERIC [id number] 2015-Present [phone] [place] [address] Indemnity [id number]. [id number] 2004 Medicare MEDICARE MEDICAR E A AND B [id number] 2004-Present [phone] [place] [address] Medicare [id number] [id number]. [id number] 1939 Unknown [id number] 2.16.840.1.897978.3.579.2. 1939 Unknown [id number] 2.16.840.1.439889.3.579.2. 62 1939 Unknown [id number] 2.16.840.1.935775.3.579.2. 1939 Unknown [id number] 2.16.840.1.032977.3.579.2. 62 1939 Unknown [id number] 2.16.840.1.390985.3.579.2. 62 1939 Unknown [id number] 2.16840.1.406372.3.579.2. 627 1939 Unknown [id number] 840.1.188328.3.579.2. 627 Unknown [id number] Unknown COMMERCIAL OTHER [id number] Unknown [id number] 2.840.1.718024.3.579.2. 462 Unknown [id number] .840.1.192875.3.579.2. 462 Unknown [id number] .840.1.354762.3.579.2. 462 Unknown [id number] 2.840.1.829331.3.579.2. 462 Unknown [id number] .840.1.860655.3.579.2. 462 Unknown [id number] .840.1.113507.3.579.2. 462 Unknown [id number] 2.840.1.510375.3.579.2. 462 Unknown [id number] .840.1.167399.3.579.2. 462 Unknown [id number] .840.1.439996.3.579.2. 462 Unknown [id number] .840.1.296706.3.579.2. 462 Unknown [id number] .840.1.793820.3.579.2. 462 Unknown [id number] 2.840.1.673505.3.579.2. 462 Unknown [id number] 2.840.1.077261.3.579.2. 462 Unknown [id number] 2.840.1.947449.3.579.2. 462 Unknown [id number] 2.16.840.1.605317.3.579.2. 462 Unknown [id number] 2.16.840.1.910928.3.579.2. 462 Unknown [id number] 2.16.840.1.430392.3.579.2. 462 Unknown [id number] 2.16.840.1.465505.3.579.2. 462 Unknown [id number] 2.16.840.1.977003.3.579.2. 462 Unknown [id number] 2.16840.1.546283.3.579.2. 462 Unknown [id number] 2..840.1.739162.3.579.2. 462 Unknown [id number] 2.840.1.872792.3.579.2. 462 Unknown [id number] 2.840.1.985530.3.579.2. 462 Unknown [id number] 2.840.1.181857.3.579.2. 462 Unknown [id number] 2.840.1.502880.3.579.2. 462 Unknown [id number] 2..840.1.790007.3.579.2. 462 Unknown [id number] 2.16840.1.205956.3.579.2. 462 Unknown [id number] 2.840.1.464198.3.579.2. 462 Unknown [id number] 2.16.840.1.535460.3.579.2. 462 Unknown [id number] 2.16.840.1.726652.3.579.2. 462 Unknown [id number] 2.16.840.1.439200.3.579.2. 462 Unknown [id number] 2.16.840.1.393543.3.579.2. 462 Unknown [id number] 2.840.1.539199.3.579.2. 462 Unknown [id number] 2.16.840.1.978037.3.579.2. 462 Unknown [id number] 2.16.840.1.537696.3.579.2. 462 Unknown [id number] 2.16.840.1.715190.3.579.2. 462 Social History Date Type Detail Facility Start: 11-23-2011 End: 09-16-2023 Tobacco smoking status NHIS Never smoked tobacco [facility] Start: 06-17-2021 End: 07-19-2022 Alcohol intake Current non-drinker of alcohol (finding) [facility] Start: 1940 Sex Assigned At Not on file C [facility] Start: 12-02-2021 End: 06-26-2022 Exposure to SARS-CoV-2 (event) Not sure [facility] Start: 11-23-2011 End: 06-02-2023 Tobacco use and exposure Smokeless tobacco non-user [facility] Start: 01-12-2023 End: 11-23-2023 Tobacco smoking status KYIS Unknown if ever smoked [facility] Start: 1940 Sex Assigned At Female [facility] Start: 07-15-2020 End: 03-10-2023 History of Social function [facility] Work Phone: Start: 07-15-2020 End: 03-10-2023 Tobacco use panel [facility] Work Phone: Adult Depression Screening Assessment 0 [facility] Work Phone: Start: 06-02-2023 End: 05-25-2025 Tobacco smoking status NHIS Ex-smoker [facility] History of tobacco use Current smoker [facility] History of tobacco use Cigarette Smoker C [facility] Start: 06-04-2023 Gender identity Identifies as female gender (finding) [facility] Start: 06-04-2023 Sexual orientation Heterosexual (sharron gifford) [facility] Start: 11-09-2024 End: 11-24-2024 Sex Female (finding) [facility] Goals Date Patient Goal Desired Activity /State Functional Status Date Assessment Result Facility 02-14-2024 Functional Status Room check performed [facility] 02-14-2024 Functional Status Refused [facility] 02-14-2024 Functional Status [facility] 02-14-2024 Functional Status [facility] 02-13-2024 Functional Status [facility] 02-13-2024 Functional Status Skin Care Prev entative Intervention(s) heel(s)s elevated [facility] 02-13-2024 Functional [facility] Functional Status [facility] 02-12-2024 Functional Status Lunch Percent 50 [facility] 02-12-2024 Functional Status [facility] 02-11-2024 Functional Status [facility] 02-11-2024 Functional Status Min A [facility] 02-11-2024 Functional Status bilateral knee high removed/off [facility] 02-11-2024 Functional Status Reason SCD Rem nuvia/Off Patient refused [facility] 02-10-2024 Functional Status [facility] 02-10-2024 Functional Status [facility] 02-10-2024 Functional Status [facility] 02-09-2024 Functional Status [facility] 02-09-2024 Functional Status Pt. normally d oes sponge bathing. [facility] 02-09-2024 Functional Status NPO Status Maintained A [facility] 02-08-2024 Functional Status [facility] 02-07-2024 Functional Status [facility] 02-07-2024 Functional Status [facility] 02-07-2024 Functional Status Transparent silicone dr veronica [facility] 02-07-2024 Functional Status Assistive Equi pment elevated on pillows [facility] 02-07-2024 Functional Status [facility] 02-06-2024 Functional Status [facility] Functional Status [facility] 02-06-2024 Functional Status [facility] 02-05-2024 Functional Status None [facility] 02-05-2024 Functional Status Awake [facility] 02-04-2024 Functional Status [facility] 02-04-2024 Functional Status Identified as high risk, Fall ID band on, Door open, Non-Slip footwear, Room check performed [facility] 02-04-2024 Functional Status Rosa Maria gould [facility] 02-04-2024 Functional Status Rosa Maria gould [facility] 02-04-2024 Functional Status 25 [facility] 02-04-2024 [facility] Status [facility] Functional Status Up to Chair Re rohini up in chair [facility] 02-03-2024 Functional Status Pt. normally d oes sponge bathing. [facility] 02-03-2024 Functional Status [facility] 02-01-2024 Functional Status Single level home [facility] 02-01-2024 Functional Status Sensory Deficits None A [facility] 02-01-2024 Functional Status Max A [facility] 02-01-2024 Functional Status Door open, Non-Slip footwear, Room check performed [facility] 02-01-2024 Functional Status [facility]-01-[facility] Functional Status [facility] 01-31-2024 Functional Status Repositioned right side [facility] 01-31-2024 Functional Status [facility] 01-31-20[facility] Functional Status [facility] 01-31-2024 Functional Status [facility] 01-31-2024 Functional Status [facility] 01-31-2024 Functional Status [facility] 01-31-2024 Functional Status [facility] 01-30-2024 Functional Status Foam dressing [facility] 01-30-[facility] Functional Status [facility] 01-29-2024 Functional Status Dinner Percent 25 [facility] 01-29-2024 Functional Status Max A [facility] 01-29-2024 Functional Status [facility] 01-29-2024 Functional Status [facility] 01-28-2024 Functional Status [facility] 01-28-2024 Functional Status [facility] 01-28-2024 Functional Status [facility] 01-27-2024 Functional Status [facility] 01-27-2024 Functional Status Mod A [facility] 01-27-2024 Functional Status [facility] 01-27-2024 Functional Status Min A 9 [facility] 01-26-2024 Functional Status Independent [facility] 01-26-2024 Functional Status [facility] 01-25-2024 Functional Status [facility] 01-25-2024 Functional Status [facility] 01-24-2024 Functional Status Single level home [facility] 01-23-2024 Functional Status [facility] 01-23-2024 Functional Status [facility] 01-22-2024 Functional Status [facility] 01-22-2024 Functional Status Sensory Deficits None A [facility] 12-11-2023 Functional Status Repositions self [facility] 12-11-2023 Functional Status Room check performed [facility] 12-11-2023 Functional Status [facility] 12-11-2023 Functional Status [facility] 12-10-2023 Functional Status Activity Statu s ADL Sleeping quietly with easy respirations [facility] 12-10-2023 Functional Status bilateral knee high removed/off [facility] 12-10-2023 Functional Status Rosa [facility] Functional Status [facility] 12-10-2023 Functional Status Mod I [facility] 12-10-2023 Functional Status [facility] 12-10-2023 Functional Status Rosa Maria Ho luis fernando [facility] [place] 12-09-2023 Functional Status Rosa Maria Ho spirolanda [facility] [place] 12-09-2023 Functional Status Supervised [facility] 12-09[facility]2023 Functional Status Rosa [facility] Ho [facility] 12-09-2023 Functional Status Rosa Maria Ho [facility] 12-08-2023 Functional Status [facility] 12-08-2023 Functional Status [facility] 12-07-2023 Functional Status [facility] 12-07-2023 Functional Status [facility] 12-07-2023 Functional Status Linen Change Done [facility] 12-07-2023 Functional Status [facility] 12-06-2023 Functional Status [facility] 12-06-2023 Functional Status [facility] 12-05-2023 Functional Status Skin Care Prev entative Intervention(s) heel(s)s elevated [facility] 12-05-2023 Functional Status [facility] 12-05-2023 Functional Status [facility] 12-05-2023 Functional Status [facility] 12-04-2023 Functional Status Lunch Percent [address] [place] [address] 12-04-2023 Functional Status [facility] 12-04-2023 Functional Status [facility] 12-03-2023 Functional Status Independent 10 [facility] 12-03-2023 Functional Status [facility] 12-02-2023 Functional Status Up to Chair Returned to bed [facility] 12-02-2023 Functional Status [facility] 12-02-2023 Functional Status Dinner Percent 5 [facility] 12-02-2023 Functional Status [facility] 12-01-2023 Functional Status [facility] 12-01-2023 Functional Status [facility] 11-30-2023 Functional Status [facility] 11-30-2023 Functional Status [facility] 11-29-2023 Functional Status Mod A [facility] 11-28-2023 Functional Status Done [facility] 11-27-2023 Functional Status Single level home [facility] 11-27-2023 Functional Status [facility] 11-26-2023 Functional Status Sensory Deficits None A [facility] 11-26-2023 Functional status Chair [facility] Work Phone: Mental Status Date Assessment Result Facility 02-14-2024 Mental Status Orientation Asse ssment Identifies self, Not oriented to time, Oriented to person [address] [facility] 02-14-2024 Mental Status Oriented x 4 [facility] 02-13-2024 Mental Status [facility] 02-13-2024 Mental Status [facility] 02-04-2024 Mental Status Not oriented to place, Not oriented to time, Not oriented to situation, Forgetful, Follows simple commands [facility] 02-04-2024 Mental Status [facility] 02-03-2024 Mental Status [facility] 02-01-2024 Mental Status Orientation Asse ssment Oriented x 4 [facility] 02-01-2024 Mental Status Not oriented to person, Not oriented to time [facility] 01-31-2024 Mental Status [facility] 01-31-2024 Mental Status [facility] 01-31-2024 Mental Status [facility] 12-11-2023 Mental Status Oriented x 4 [facility] 12-10-2023 Mental Status [facility] 12-10-2023 Mental Status [facility] 12-10-2023 Mental Status [facility] 11-26-2023 Cognitive function Voice/Name [facility] Work Phone: 11-23-2023 Cognitive function Level Of Cons ciousness Awake;Alert;Appropriate;Follow s Commands [facility] Work Phone: Clinical Notes 06-18-2021 to 12-04-2024 Note Date & Type Note Facility 12-04-2024 Evaluation note Diagnosis Onset Date Resolution Osteoarthritis of sacroiliac joint noneactive December 04 3:28pm [facility] Work Phone: [phone] Telephone encounter Note* Telephone Encounter - Carl [...] was identified. 02/15/2024 by Carl Encarnacion MD [facility]07-09-2024 Miscellaneous Notes* Telephone Encounter - Carl Encarnacion [...] 15, 2024 8:15 AM [facility] Telephone encounter Note * Telephone Encounter - [...] Puckett LPN February 15, 2024 11:25 AM [facility]07-09-2024 Telephone encounter Note* Telephone Encounter - Stephanie [...] Stephanie Estrada February 15, 2024 8:15 AM [facility]07-08-2024 Hospital Discharge instructions Patient Education 02/14/2024 13:47:33 [...] Follow these instructions at home: Medicines Take qpju-ubx-[id number] and prescription medicines only as told by [...] and water are not available, use hand milking machine technician. You should wash your hands: ?After using [...] health care provider. Practice good oral hygiene. Gordo your teeth two times a day, and [...] 05/09/2007 Document Revised: 12/15/2019 Document Reviewed: 12/15/2019 [employer] Patient Education 2020 [employer]. Follow Up Care 02/04/2024 10:08:29 With:LINDA ANNE BA, MD, Infectious Disease, Infectious Disease Group Address: [facility] [address] [place] [address] [phone] When:Within 3 Week(s) Comments:Schedule appointment as soon as possible With:[facility] skilled care, report to [phone] Address:Unknown When:1-2 days With:ESTER BEJARANO Address: [address] [address]- Business (1) When:1-[address] [facility] 07-08-2024 Note Discharge Instructions Thank you for allowing [facility] to assist you with your healthcare needs. The following is importantdischarge information regarding your hospital visit. Your Care Team ESTER BEJARANO MSN, [employer]LE[employer] FILTER OPERATOR What to do next Instructions From [...] Wednesday and send results to fax number [phone] Anne Please call Dr. Anne's office for a follow-up appointment in 2-4 weeks, Phone number [phone]. Scheduled Follow-Up Appointments Appointment Type When Where Contact Information StatusEcho - Echocardiogram Adult 08/21/2024 11:00 AM EST [facility] [phone] Confirmed CV OV 09/21/2024 01:15 PM HARI Crane [facility] Follow Up Appointments Follow Up with LINDA ANNE BA, MD, Infectious Disease, Infectious Disease Group When:In 3 weeks Where:[facility] [place] [address] [place] [address]- [phone] Additional Information: Schedule appointment as soon as possible Follow Up with [facility] skilled care, report to [phone] When:Within 1-2 days Follow Up with ESTER BEJARANO When:Within 1-2 days Where:[address] [address]- Business (1) The Following Activity and Diet [...] Follow these instructions at home: Medicines Take cpnz-smb-yplbndu and prescription medicines only as told by [...] and water are not available, use hand milking machine technician. You should wash your hands: ? After [...] health care provider. Practice good oral hygiene. Gordo your teeth two times a day, and [...] 05/09/2007 Document Revised: 12/15/2019 Document Reviewed: 12/15/2019 [employer] Patient Education 2020 [employer] Additional Information VACCINATE! IT SAVES LIVES! Members of the community who have not yet received the COVID-19 vaccine and would like to receive it can visit one of [facility] vaccine clinics. There are many vaccine clinic locations within the [facility]. For locations and available times, please visit [email or web address] It is important to note that some COVID mobile vaccine clinics are held outdoors and may be canceled in rainy or stormy conditions. To learn more about pediatric vaccinations (ages 5-11), we invite you to visit the [facility] webpage. [email or web address] learn more about the COVID-19 vaccine, we invite you to visit the CDC website for a list of frequently asked questions.https://www.cdc.gov/coronavirus/2019-ncov/vaccines/faq.html [facility] Patient Portal Access Instructions: Stay connected with your healthcare team and access your personal medical information anytime with the [facility] Patient Portal. Please follow the directions below to create your [facility] account: 1.Access the email account you provided upon registration to the hospital/physician office.2.Look for an invitation email from [facility].3.Open the email and access the invitation link: AcceptInvitation to [facility].4.Fill in the required martinez to create your account. To access your account, visit [email or web address]. Click the blue button labeled "Access Patient Portal" and then log in with the username and password that you created in the steps above. You will be able to view your test results, lab results, a summary of your visits, upcoming appointments and more. There is also a convenient messaging option where you can send secure messages to your p CGTradervider. In addition, you will have the ability to download any documents or summaries to your computer and/or send the information securely to a physician. Remember that your healthcare information is confidential, so carefully consider who you will allowto register on the [email or web address] Patient Portal for access to your information. You can also access the [facility] on the [facility] Loginzawhere guille. Simply click on "Patient Portal" and then log into your account. If you would like to receive a full copy of your medical records, please contact the [facility] Hospital Medical Records Department by calling [phone], Wednesday through Wednesday between 8 a.m. and [...] Call your local pharmacy or go to http://[employer]/4Q8Tl4k to find one close to you.3.Make use of household items: Use cat litter or old coffee grounds to dispose medications if other options arenot available. Mix your drugs with these household products, seal them in an airtight container andthrow it into the garbage. Call [facility]: [phone] to be sure your drugs can be [...] been reviewed and explained to me and IEULA RACHEL Sunderstand my current condition and have read and understand these discharge instructions. I have received a written copy of the plan/instructions. If I have questions, I am aware that I should contact my doctor. Patient/Motion Picture Printer Signature: Date/Time: Relationship to Patient: Witness Name/Signature: Date/Time: Rosa Maria [id number] Note Discharge Instructions Thank you for allowing Rosa [facility] to assist you with your healthcare needs. The following is importantdischarge information regarding your hospital visit. Your Care Team ESTER BEJARANO MSN, VALLEZ FILTER OPERATOR What to do next Instructions From [...] Wednesday and send results to fax number [phone] Anne Please call Dr. Anne's office for a follow-up appointment in 2-4 weeks, Phone number [phone]. Scheduled Follow-Up Appointments Appointment Type When Where Contact Information StatusEcho - Echocardiogram Adult 08/21/2024 11:00 AM [facility] Radiology [phone] Confirmed CV OV 09/21/2024 01:15 PM [facility] Follow Up Appointments Follow Up with LINDA ANNE BA, MD, Infectious Disease, Infectious Disease Group When:In 3 weeks Where:[facility] [address] [place] [address] [phone] Additional Information: Schedule appointment as soon as possible Follow Up with [facility] skilled care, report to [phone] When:Within 1-2 days Follow Up with ESTER BEJARANO When:Within 1-2 days Where:[facility] [address] [place] [address]- Business (1) The Following Activity and Diet [...] Follow these instructions at home: Medicines Take akyv-yje-gsvixfv and prescription medicines only as told by [...] and water are not available, use hand milking machine technician. You should wash your hands: ? After [...] health care provider. Practice good oral hygiene. Gordo your teeth two times a day, and [...] Document Reviewed: 12/15/2019 Elsevier Patient Education 2019 [employer] Additional Information VACCINATE! IT SAVES LIVES! Members of the community who have not yet received the COVID-19 vaccine and would like to receive it can visit one of [facility] vaccine clinics. There are many vaccine clinic locations within the [facility]. For locations and available times, please visit https://[email or web address].gov/. It is important to note that some COVID mobile vaccine clinics are held outdoors and may be canceled in rainy or stormy conditions. To learn more about pediatric vaccinations (ages 5-11), we invite you to visit the [employer] webpage. https://www.[facility].org/pages/6472-Shxtf-Rdliuxtfvjp-Wpxcvekldq-Qzfqd-Uvd stions.htmlTo learn more about the COVID-19 vaccine, we invite you to visit the CDC website for a list of frequently asked questions.https://www.cdc.gov/coronavirus/2019-ncov/vaccines/faq.html [facility] Patient Portal Access Instructions: Stay connected with your healthcare team and access your personal medical information anytime with the [facility] Patient Portal. Please follow the directions below to create your [facility] account: 1.Access the email account you provided upon registration to the hospital/physician office.2.Look for an invitation email from [facility].3.Open the email and access the invitation link: AcceptInvitation to [facility].4.Fill in the required martinez to create your account. To access your account, visit [employer] Geote[employer] ServicesOneChart. Click the blue button labeled "Access Patient [...] who you will allowto register on the [facility] OneChart Patient Portal for access to your information. You can also access the [facility] OneChart Patient Portal on the [place] Anywhere guille. Simply click on "Patient Portal" and then log into your account. If you would like to receive a full copy of your medical records, please contact the [facility] Medical Records Department by calling [phone], Wednesday through Wednesday between 8 a.m. and [...] Call your local pharmacy or go to http://[employer]/2I1We9a to find one close to you.3.Make use of household items: Use cat litter or old coffee grounds to dispose medications if other options arenot available. Mix your drugs with these household products, seal them in an airtight container andthrow it into the garbage. Call [facility]: [phone] to be sure your drugs can be [...] aware that I should contact my doctor. Patient/Motion Picture Printer Signature: Date/Time: Relationship to Patient: Witness Name/Signature: Date/Time: [facility] HospitalNtskoqdi91-19-9015 Note Discharge Instructions Thank you for allowing Rosa Maria to assist you with your healthcare needs. The following is importantdischarge information regarding your hospital visit. Your Care Team ESTER BEJARANO, VALLEZ FILTER OPERATOR What to do next Instructions From [...] Wednesday and send results to fax number [phone] Anne Please call Dr. Anne's office for a follow-up appointment in 2-4 weeks, Phone number [phone]. Scheduled Follow-Up Appointments Appointment Type When Where Contact Information StatusEcho - Echocardiogram Adult 08/21/2024 11:00 AM [facility] [phone] Confirmed CV OV 09/21/2024 01:15 PM [facility] [place] Confirmed Follow Up Appointments Follow Up with LINDA ANNE BA, MD, Infectious Disease, Infectious Disease Group When:In 3 weeks Where:[facility] [address] [place] [address]- [phone] Additional Information: Schedule appointment as soon as possible Follow Up with [facility] skilled care, report to [phone] When:Within 1-2 days Follow Up with ESTER BEJARANO When:Within 1-2 days Where:[facility] [address] [place] [address]- Business (1) The Following Activity and Diet [...] Follow these instructions at home: Medicines Take kcru-ysb-ejfbbcg and prescription medicines only as told by [...] and water are not available, use hand milking machine technician. You should wash your hands: ? After [...] health care provider. Practice good oral hygiene. Gordo your teeth two times a day, and [...] 05/09/2007 Document Revised: 12/15/2019 Document Reviewed: 12/15/2019 ElseStrevus Patient Education 2020 [employer]. Additional Information VACCINATE! IT SAVES LIVES! Members of the community who have not yet received the COVID-19 vaccine and would like to receive it can visit one of [facility] vaccine clinics. There are many vaccine clinic locations within the [facility]. For locations and available times, please visit https://[email or web address].gov/. It is important to note that some COVID mobile vaccine clinics are held outdoors and may be canceled in rainy or stormy conditions. To learn more about pediatric vaccinations (ages 5-11), we invite you to visit the [facility] webpage. https://www.[facility].org/pages/4463-Ygopf-Xfxywzdmxkp-Gklvelmlfe-Cwgvi-Cur stions.htmlTo learn more about the COVID-19 vaccine, we invite you to visit the CDC website for a list of frequently asked questions.https://www.cdc.gov/coronavirus/2019-ncov/vaccines/faq.html [facility] Patient Portal Access Instructions: Stay connected with your healthcare team and access your personal medical information anytime with the [facility] Patient Portal. Please follow the directions below to create your Rosa MariaWhyd account: 1.Access the email account you provided upon registration to the hospital/physician office.2.Look for an invitation email from [facility].3.Open the email and access the invitation link: AcceptInvitation to [facility] [email or web address].4.Fill in the required martinez to create your account. To access your account, visit [email or web address]. Click the blue button labeled "Access Patient [...] who you will allowto register on the [email or web address] Patient Portal for access to your information. You can also access the [facility] [email or web address] Patient Portal on the [facility] [facility] guille. Simply click on "Patient Portal" and then log into your account. If you would like to receive a full copy of your medical records, please contact the [facility] Medical Records Department by calling [phone], Wednesday through Wednesday between 8 a.m. and [...] Call your local pharmacy or go to http://bit.ly/8G0Ra0h to find one close to you.3.Make use of household items: Use cat litter or old coffee grounds to dispose medications if other options arenot available. Mix your drugs with these household products, seal them in an airtight container andthrow it into the garbage. Call [facility]: [phone] to be sure your drugs can be [...] aware that I should contact my doctor. Patient/Motion Picture Printer Signature: Date/Time: Relationship to Patient: Witness Name/Signature: Date/Time: [facility] HospitalLmthmbca94-57-9444 Note Date of Service 02/13/2024 Subjective Resting [...] Wednesday and send results to fax number [phone] Anne Please call Dr. Anne's office for a follow-up appointment in 2-4 weeks, Phone number [phone]. PICC line placed 02/11/2024. Functioning well. Regards to the patient's retention: Appears to have some symptoms of constipation, which is now improved. Allen catheter removed Resume home medications as deemed appropriate. Point of contact: Patient's daughter Stefano: [phone] Above plan of care was discussed with the patient at bedside, all questions answered appropriately. This is a note transcribed by me, the attending physician on service using the 'Dragon' dictation software. Please excuse any grammatical errors, repetitions/duplications if any are present in the entirety of this note. Thank you. Anticipated Date of Discharge Awaiting pre-CERT, hopeful discharge tomorrow Digitally Signed by DRE PHIPPS MD on 02/13/2024 08:[address] [facility] HospitalRzcwhyka80-02-2468 Cardiology Progress note Date of Service 02/08/2024 [...] ALIA MCCORMACK MD on 02/08/2024 10:[address] [facility] HospitalRaaisxiy07-64-2055 Cardiology Consult note Date of Service 02/05/2024 [...] TTE 01/2024 Hypothyroidism, hyperlipidemia, GERD, hypertension CVC: [facility] 83-year-old woman with moderate aortic stenosis, reported Takotsubo cardiomyopathy negative cath 01/2024 at [facility], who is admitted to the internal medicine [...] be discussed with Dr. Nuha Curtis MD Electrician Machine [employer] Messenger guille or Pager [phone] Problem List/Past Medical History Ongoing Acquired hypothyroidism [...] CANDIDA CURTIS MD on 02/05/2024 01:[address] [facility] HospitalXaslzzmk86-18-2620 Cardiology Progress note Date of Service 02/07/2024 [...] ALIA MCCORMACK MD on 02/07/2024 05:[address] [facility] HospitalNpnimxbz76-65-0802 Note Date of Service 02/12/2024 Subjective Resting [...] Result Date: February 11, 2024 Verified By: Contributor_system SHEILA CLINICAL STATEMENT: IMPRESSION: Successful placement left PICC. [...] Wednesday and send results to fax number [phone] Anne Please call Dr. Anne's office for a follow-up appointment in 2-4 weeks, Phone number [phone]. PICC line placed 02/11/2024. Functioning well. Regards to the patient's retention: Appears to have some symptoms of constipation, which is now improved. Allen catheter removed Resume home medications as deemed appropriate. Point of contact: Patient's daughter Stefano: [phone] Above plan of care was discussed with the patient at bedside, all questions answered appropriately. This is a note transcribed by me, the attending physician on service using the '[facility]' dictation software. Please excuse any grammatical errors, repetitions/duplications if any are present in the entirety of this note. Thank you. Anticipated Date of Discharge Await pre-CERT: Pre-CERT is obtained, patient can be discharged. Digitally Signed by DRE PHIPPS MD on 02/12/2024 01:[address] [facility] HospitalFwbbtvjx08-01-5220 Cardiology Progress note Date of Service 02/09/2024 [...] for any further changes. Digitally Signed by AILA MCCORMACK MD on 02/09/2024 09:[address] [facility] HospitalFvmgntap04-89-9976 Procedure note Vascular Access Team Post Procedure Note Procedure: Peripherally Inserted Central Catheter (PICC) Indication: [facility] Antibiotics Details: Consult for PICC Placement received. [...] Length: 0cm Arm Circ: 32cm Lot #: [id number] Complications: None Inserted by: Reno Tapia RN Plan: Chest x-ray complete and confirmed PICC placement in SVC. May use PICC now per protocol. Digitally Signed by MICH Tapia on 02/11/2024 05:[address] [facility] HospitalCuiszywc40-87-6896 Note ORIGINAL EXAMINATION: ONE XRAY VIEW OF [...] Date: 02/11/2024 5:26:58 PM Ordering Provider: DRE [facility]07-05-2024 Note Date of Service 02/11/2024 Subjective Patient [...] Wednesday and send results to fax number [phone] Anne Please call Dr. Anne's office for a follow-up appointment in 2-4 weeks, Phone number [phone]. Awaiting PICC line placement. Regards to the patient's retention: Appears to have some symptoms of constipation, which is now improved. Will perform voiding trial today. Resume home medications as deemed appropriate. Point of contact: Patient's daughter Stefano: [phone] Above plan of care was discussed with the patient at bedside, all questions answered appropriately. This is a note transcribed by me, the attending physician on service using the '[facility]' dictation software. Please excuse any grammatical errors, repetitions/duplications if any are present in the entirety of this note. Thank you. Anticipated Date of Discharge Patient can be discharged once PICC line is placed for IV antibiotics and when pre-CERT is obtained. Digitally Signed by DRE PHIPPS MD on 02/11/2024 11:[address] [facility] HospitalXjnajoew57-70-2709 Note Patient's cervical spine is contracted and follow commands poorly. Procedure can not be done safelyas ordered. Consider CT imaging for valve evaluation Digitally Signed by PIO DONAHUE MD on 02/09/2024 11:[address] [facility] HospitalEfzrfksk23-52-0675 Infectious disease Progress note Date of Service [...] - present CULTURE RESULTS/ASHLEIGH: 01/30 Blood Cultures 22 -F Enterococcus faecalis 01/31 Blood Cultures 09/10 [...] Lima Vital RN on 02/09/2024 10:[address] [facility] HospitalAatwesoy77-80-4510 Note. MICRO - Microbiology PROCEDURE: Blood Culture [...] Locations *1: This test was performed at: [address], [facility] , [facility] ([facility]02-09-2024 Note. MICRO - Microbiology PROCEDURE: Blood Culture [...] Locations *1: This test was performed at: [address], [facility] , [facility]02-09-2024 Cardiology Progress note Date of Service 02/09/2024 [...] ALIA MCCORMACK MD on 02/09/2024 09:[address] [facility] HospitalXnmktebw79-71-6694 Note* Exam Date Time Procedure Performing Provider Status 02/09/24 11:48 AM Transesophageal Echo cardiogram - CV Auth (Verified) [facility] 07-03-2024 Note Patient's cervical spine is contracted and follow commands poorly. Procedure can not be done safelyas ordered. Consider CT imaging for valve evaluation Digitally Signed by PIO DONAHUE MD on 02/09/2024 11:[address] [facility] HospitalYovwnwjp33-29-0513 Infectious disease Progress note Date of Service [...] Lima Vital RN on 02/09/2024 10:[address] [facility] HospitalPltslijd46-91-9331 Cardiology Progress note Date of Service 02/08/2024 [...] ALIA MCCORMACK MD on 02/08/2024 10:[address] 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 Allen with yellow urine noted to tubing/bag. CURRENT ANTIBIOTICS: Gentamicin 240mg IV x1 02/04 Ampicillin 2g IV Q4h 01/31 - present Rocephin 2g IV Q12h 02/04 - present CULTURE RESULTS/ASHLEIGH: 01/30 Blood Cultures 22 -F Enterococcus faecalis 01/31 Blood Cultures 09/10 -F Enterococcus faecalis 02/01 Blood Cultures 2 [...] CIPRIANO DANG MD on 02/09/2024 02:[address] [facility] HospitalPvhrafot55-75-1923 Cardiology Progress note Date of Service 02/07/2024 [...] ALIA MCCORMACK MD on 02/07/2024 05:[address] [facility] HospitalZsshfuay77-74-8386 Infectious disease Progress note Date of Service [...] blood cultures positive for E faecalis at [facility] with echocardiogram showing filiform strand-like echodensity so was transferred to [facility] [facility] for further evaluation. ID has been following [...] by JANAY SINHA on 02/07/2024 08:[address] [facility] HospitalIymqpjzp49-18-9040 Palliative care Progress note Date of Service [...] to want palliative care [facility] as she lives outside of our jurisdiction. CODE STATUS confirmed patient's CODE STATUS is a DNR CCA DNI. Advanced directives patient expresses that she has a healthcare power of employee benefits attorney she is named her daughter Stefano. [...] MARIA ESTHER ALBRIGHT on 02/07/2024 10:[address] [facility] HospitalRvnilrqp98-40-8958 Note. MICRO - Microbiology PROCEDURE: Blood Culture (bacterial) [*1] SOURCE: Blood BODY SITE: COLLECTED DATE/TIME: 02/03/2024 05:50 EDT RECEIVED DATE/TIME: 02/03/2024 15:21 EDT START DATE/TIME: 02/03/2024 15:21 EDT FREE TEXT SOURCE: FINAL REPORTS Final Report [] Verified Date/Time/Personnel: 02/06/2024 10:55 EDT Enterococcus faecalis Isolated from anaerobe bottle only. Refer to previous culture for susceptibility. [phone] PRELIMINARY REPORTS Preliminary Report [] Verified Date/Time/Personnel: 02/03/2024 15:59 EDT Culture has been received in lab and is no growth to date. Routine cultures are held for 5 days. STAINS GSANA [] Verified Date/Time/Personnel: 02/05/2024 07:33 EDT Gram Positive Cocci in pairs Performing Locations *1: This test was performed at: [facility], [address] [place] [address], [id number] , [facility] ([place])02-05-2024 Infectious disease Consult note Date of Service [...] was comfortable in bed having [facility] Review of Systems Fatigue at times otherwise [...] for SALAZAR evaluation Reported Takotsubo cardiomyopathy 01/2024 C Filiform mobile echodensity on aortic valve, thought [...] qDay Synthroid, 88 mcg= 1 tab(s), Oral, Saturday traMADol, 50 mg= 1 tab(s), Oral, BID, [...] ANNE BA, MD on 02/05/2024 05:[address] [facility] HospitalMsycmgsy71-29-3595 Palliative care Consult note Date of Service [...] with the patient. She was transferred from [place] for further evaluationfor bacteremia, and consideration of [...] that she has a healthcare power of employee benefits attorney she is named her daughter Stefano. [...] PRN levothyroxine, 88 mcg= 1 tab(s), Oral, Mon//Wed//Fri melatonin, 3 mg= 1 tab(s), Oral, qHS, [...] ESTHER ALBRIGHT APRN-KACI on 02/05/2024 02:[address] 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 Nuha Curtis MD [employer] Messenger guille or Pager [phone] Problem List/Past Medical History Ongoing Acquired hypothyroidism [...] CANDIDA CURTIS MD on 02/05/2024 01:[address] [facility] HospitalEmqskcaw92-80-2216 History and physical note Date of Service [...] pain, abdominal pain. She was admitted to [facility] On 02/01/2024. Prior to that, she [...] self only. Believes that she is in [place] and the year is 2012. Abd: Not [...] NIGHAT OBRIEN MD on 02/05/2024 03:[address] [facility] HospitalWvpkpgyp27-43-9691 Note Discharge Instructions Thank you for allowing [facility] to assist you with your healthcare needs. The following is importantdischarge information regarding your hospital visit. Your Care Team ESTER BEJARANO MSN, VALLEZ FILTER OPERATOR Your Diagnosis Bacteremia Hypertension Takotsubo cardiomyopathy Weakness What to do next Scheduled Follow-Up Appointments Appointment Type When Where Contact Information StatusEcho - Echocardiogram Adult 08/21/2024 11:00 AM [facility] [place] [facility] [phone] Confirmed CV OV 09/21/2024 01:15 PM [facility] [place] Confirmed Follow Up Appointments Follow Up with BROOKS OSUNA When:01/10/2024 09:30 AM EDT Where:[address] [place] [address]- Additional Information: This is your post-hospital cardiology [...] it can visit one of [facility] vaccine clinics. There are many vaccine clinic locations within the [facility]. For locations and available times, please visit https://[email or web address].gov/. It is important to note that some COVID mobile vaccine clinics are held outdoors and may be canceled in rainy or stormy conditions. To learn more about pediatric vaccinations (ages 5-11), we invite you to visit the [employer] webpage. https://www.[facility].org/pages/3127-Qdkva-Wfvgudprcsp-Fgtzfrsqbq-Lguph-Tzl stions.htmlTo learn more about the COVID-19 vaccine, we invite you to visit the CDC website for a list of frequently asked questions.https://www.cdc.gov/coronavirus/2019-ncov/vaccines/faq.html [facility] Patient Portal Access Instructions: Stay connected with your healthcare team and access your personal medical information anytime with the [facility] Patient Portal. Please follow the directions below to create your [facility] account: 1.Access the email account you provided upon registration to the hospital/physician office.2.Look for an invitation email from [facility].3.Open the email and access the invitation link: AcceptInvitation to Rosa MariaWhyd.4.Fill in the required martinez to create your account. To access your account, visit [employer] Geotechnical ServicesOneChart. Click the blue button labeled "Access Patient [...] who you will allowto register on the [place] avoxChart Patient Portal for access to your information. You can also access the [place] avoxChart Patient Portal on the [place] [facility]where guille. Simply click on "Patient Portal" and then log into your account. If you would like to receive a full copy of your medical records, please contact the [facility] Medical Records Department by calling [phone], Wednesday through Wednesday between 8 a.m. and [...] Call your local pharmacy or go to http://[email or web address]/7R5Av7v to find one close to you.3.Make use of household items: Use cat litter or old coffee grounds to dispose medications if other options arenot available. Mix your drugs with these household products, seal them in an airtight container andthrow it into the garbage. Call [facility]: [phone] to be sure your drugs can be [...] aware that I should contact my doctor. 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 Patient is now agreeable to transfer to another facility for SALAZAR and possible ID consult. Family requests that [facility] be called first. [facility] states no beds today at all and does not offer optionof going on a list. Family is agreeable to transfer to [facility] but there is quite a wait [...] mcg tablet 88 mcg 1 tab(s), Oral, Mon//Wed//Wed/Wed lidocaine patch REMOVAL 1 EA, Miscellaneous, q24h [...] was collected was negative. Urine culture from [facility] grew actinomyces naeslundii. She was treated with [...] to inpatient due to bacteremia.Patient accepted by [facility] and has precert good through 02/07. Continue PT and OT while here. 4. Takotsubo cardiomyopathy Found during recent heart cath at [facility]. She was started on Coreg 3.125 [...] by KUMAR JAMES on 02/04/2024 03:24 PM [facility]06-28-2024 Note. MICRO - Microbiology PROCEDURE: Blood Culture (bacterial) [*1] SOURCE: Blood BODY SITE: COLLECTED DATE/TIME: 02/02/2024 06:25 EDT RECEIVED DATE/TIME: 02/02/2024 17:02 EDT START DATE/TIME: 02/02/2024 17:02 EDT FREE TEXT SOURCE: FINAL REPORTS Final Report [] Verified Date/Time/Personnel: 02/04/2024 11:35 EDT Enterococcus faecalis Isolated from aerobe bottle only. Refer to previous culture for susceptibility. [id number] collected 01-31-24 PRELIMINARY REPORTS Preliminary Report [] [...] Locations *1: This test was performed at: [facility], [address] [place] [address], [id number] , [facility] ([place])02-03-2024 Note Date of Service 02/03/2024 Chief Complaint [...] was collected was negative. Urine culture from [facility] grew actinomyces naeslundii.She was treated with cefdinir. [...] to inpatient due to bacteremia.Patient accepted by [facility] and has precert good through 02/07. Continue PT and OT while here. 4. Takotsubo cardiomyopathy Found during recent heart cath at [facility]. DVT prophylaxiis with Lovenox. Code status: [...] by KUMAR JAMES on 02/03/2024 04:05 PM [facility]06-27-2024 Note. MICRO - Microbiology PROCEDURE: Blood Culture (bacterial) [*1] SOURCE: Blood BODY SITE: Arm L COLLECTED DATE/TIME: 02/01/2024 05:34 EDT RECEIVED DATE/TIME: 02/01/2024 14:42 EDT START DATE/TIME: 02/01/2024 14:42 EDT FREE TEXT SOURCE: FINAL REPORTS Final Report [] Verified Date/Time/Personnel: 02/03/2024 11:26 EDT Enterococcus faecalis Isolated from aerobe and anaerobe bottles. Refer to previous culture for susceptibility. [id number] collected 01-31-24 PRELIMINARY REPORTS Preliminary Report [] Verified Date/Time/Personnel: 02/02/2024 09:02 EDT Enterococcus faecalis Isolated from aerobe and anaerobe bottles. Refer to previous culture for susceptibility. [id number] collected 01-31-24 Final report to follow. Preliminary [...] Locations *1: This test was performed at: [address], [facility] , [facility] ([place])02-03-2024 Note. MICRO - Microbiology PROCEDURE: Blood Culture (bacterial) [*1] SOURCE: Blood BODY SITE: Arm R COLLECTED DATE/TIME: 02/01/2024 05:34 EDT RECEIVED DATE/TIME: 02/01/2024 14:42 EDT START DATE/TIME: 02/01/2024 14:42 EDT FREE TEXT SOURCE: FINAL REPORTS Final Report [] Verified Date/Time/Personnel: 02/03/2024 11:25 EDT Enterococcus faecalis Isolated from aerobe and anaerobe bottles. Refer to previous culture for susceptibility. [id number] Collected 01-31-24 PRELIMINARY REPORTS Preliminary Report [] [...] Locations *1: This test was performed at: [address], [address] [place] [address] ([place])02-02-2024 Note ORIGINAL EXAMINATION: CT OF THE ABDOMEN [...] Sign Date: 02/02/2024 5:34:24 PM Ordering Provider: [facility]06-26-2024 Note Date of Service 02/02/2024 Chief [...] that wascollected was negative. Urine culture from [facility] grew actinomyces naeslundii. She was treated with [...] to inpatient due to bacteremia.Patient accepted by [facility] and has precert good through 02/07. 4. Takotsubo cardiomyopathy Found during recent heart cath at [facility]. DVT prophylaxiis with Lovenox. Code status: [...] by KUMAR JAMES on 02/02/2024 03:16 PM [facility]06-26-2024 Note. MICRO - Microbiology PROCEDURE: Blood Culture (bacterial) [*1] SOURCE: Blood BODY SITE: Arm R COLLECTED DATE/TIME: 01/31/2024 01:15 EDT RECEIVED DATE/TIME: 01/31/2024 15:05 EDT START DATE/TIME: 01/31/2024 15:05 EDT FREE TEXT SOURCE: FINAL REPORTS Final Report [] Verified Date/Time/Personnel: 02/02/2024 07:29 EDT Enterococcus faecalis Isolated from aerobe and anaerobe bottles. Refer to previous culture for susceptibility. [id number] PRELIMINARY REPORTS Preliminary Report [] Verified Date/Time/Personnel: [...] Locations *1: This test was performed at: [facility], [address] [place] [address], [address] , [facility] ([place])02-02-2024 Note. MICRO - Microbiology PROCEDURE: Blood Culture [...] Locations *1: This test was performed at: [address], [address] , [facility] ([place])02-01-2024 Hospital Discharge instructions Follow Up Care 02/01/2024 12:18:47 With:BROOKS OSUNA Address: [address] [address]- When:01/10/2024 09:30:00 Comments:This is your post-hospital cardiology appointment. [facility] 06-25-2024 Note Date of Service 02/01/2024 Chief Complaint Bacteremia History of Present Illness 83-year-old female with past medical history significant for HTN, HLD, hypothyroidism, GERD, PE, NSTEMI, Takotsubo cardiomyopathy (01/2024), aortic stenosis. Patient was originally seen at [facility] on 01/20/2024 where she was diagnosed withan NSTEMI. Patient had cardiac catheterization done with no blockages but was notable for Takotsubocardiomyopathy. Echo showed normal LVEF and moderate aortic stenosis. She was treated for a UTI with cefdinir. She was admitted to [facility] TCU. Her progress has been labile. [...] subsequently discharged from TCU and admitted to [facility] inpatient. On exam today, pt denies [...] was collected was negative. Urine culture from [facility] grew actinomyces naeslundii. She was treated with [...] by STEFANO GRAHAM on 02/01/2024 02:01 PM [facility]06-25-2024 Note* Exam Date Time Procedure Performing Provider Status 02/01/24 2:01 PM Echocardiogram, Adult - CV Auth (Verified) [facility] 06-25-2024 Evaluation + Plan noteExtracted from: Title:History and Physical Author:STEFANO GRAHAM APRN-ORTHOPEDIC NURSE Date:02/01/24 1. Bacteremia 2. Hypertension 3. Weakness Bacteremia unclear source of infection. Blood cultures grew Enterococcus faecalis. Start ampicillin 2 g every 4 hours x 7 days. Stop date 02/08/2024. Urinalysis that was collected was negative. Urine culture from [facility] grew actinomyces naeslundii. She was treated with [...] Scheduled Provider: Location:[facility] Appointment Type:CV OV [facility] 06-24-2024 Note Date of Service 01/31/2024 Chief Complaint Asthenia Subjective 83-year-old female with past medical history significant for HTN, HLD, hypothyroidism, GERD, PE, NSTEMI, Takotsubo cardiomyopathy (01/2024), aortic stenosis. Patient was originally seen at [facility] on 01/20/2024 for increasing weakness. Shewas [...] for SNF. She was subsequently admitted to [facility] TCU. Initially patient was struggling with progressing with therapy. She briefly showed improvement withtherapy but then started struggling again. Her endurance is very poor. She tells me that she is just done. She has expressed the same to other staff members. I asked her if she would be interested in a hospice consultation and she said that she would like to get more information. Overnight patientdeveloped a fever of 38.1. Infectious workup was completely negative. Patient had this same thing happen when she was here for therapy before. Her workup was negative at that point 2. Patient tends to bury herself in a lots of blankets. Objective [...] may include grammatical and/or spelling errors. CPT: 48906 Anticipated Date of Discharge Within 5 days Time Spent 20 minutes Digitally Signed by STEFANO GRAHAM on 01/31/2024 03:23 PM [facility]06-24-2024 Nurse Progress note pt refusing 2 am labs at this time. pad machine operator aware and will attempt to collect later in am. Digitally Signed by MICH Squires on 01/31/2024 03:19 AM [facility]06-24-2024 Note ORIGINAL EXAMINATION: TWO XRAY VIEWS [...] Date: 01/31/2024 12:50:22 AM Ordering Provider: NOVEMBER [facility]06-22-2024 Nurse Progress note Pt has not voided since beginning of shift and has attempt to go on bedpan twice. Bladder scan doneshowing 593mL. Pt straight cathed per standing order and 400mL emptied from bladder. Urine clear and yellow. REBECCA Olivas notified. Pt denies discomfort other than "usual arthritis". PRN tylenol administered. Digitally Signed by Allison Angela RN on 01/29/2024 02:54 PM [facility]06-22-2024 Nurse Progress note Therapy reported pt [...] Allison Angela RN on 01/29/2024 01:40 PM [facility]06-21-2024 Note Date of Service 01/28/2024 Chief Complaint Asthenia Subjective 83-year-old female with past medical history significant for HTN, HLD, hypothyroidism, GERD, PE, NSTEMI, Takotsubo cardiomyopathy (01/2024), aortic stenosis. Patient was originally seen at [facility] on 01/20/2024 for increasing weakness. Shewas [...] for SNF. She was subsequently admitted to [facility] TCU. Initially patient was struggling with [...] tablet 88 mcg 1 tab(s), Oral, Wed//Wed//Wed/Wed pantoprazole 20 mg EC tablet 20 mg [...] may include grammatical and/or spelling errors. CPT: 33927 Anticipated Date of Discharge 02/03 Time Spent 20 minutes Digitally Signed by STEFANO GRAHAM on 01/28/2024 12:03 PM [facility]06-16-2024 Evaluation + Plan noteExtracted from: Title:History and Physical Author:KUMAR JAMES APRN-KACI Date:01/23/24 1. Asthenia Consult placed to PT and OT to evaluate and treat - following. consumer services advisor following for discharge planning needs. 2. Takotsubo [...] collaborating with physician, and documenting in chart. CPT#75468 Future Appointments Appointment Date:08/21/2024 11:00:00 AM Scheduled Provider: Location:[facility] Appointment Type:Echo - Echocardiogram Adult Appointment Date:09/21/2024 01:15:00 PM Scheduled Provider: Location:[facility] Appointment Type:CV OV [facility] 06-16-2024 Note Date of Service 01/23/2024 Chief Complaint weakness History of Present Illness Patient is an 83-year-old female, who follows with Ester Suppan VALLEZ FILTER OPERATOR with a past medical history significant for hypertension, hypothyroidism, hiatal hernia and GERD, presents to [facility] transitional care program for rehab before returning home. Patient was admitted to [facility] on 01/19 due to increased weakness at home. Patient was just in the TCU here at [facility] from 11/26-12/10 for rehab following a hospitalization at [facility]. She stated on admission that she had been getting around fine until 01/19 when she felt much weaker than usual. She also complained of some left shoulder pain that radiated down her left arm. She had recently been treated for a UTI by [facility] but felt that her urine was still dark and foul smelling. On evaluation in the ED, her initial troponin was noted to be 3264 while her EKG demonstrated no acute ST changes. Patient was taken to the laboratory courier from ED. The cardiac catheterization demonstrated no [...] OT to evaluate and treat - following. consumer services advisor following for discharge planning needs. 2. Takotsubo [...] collaborating with physician, and documenting in chart. CPT#11340 Problem List/Past Medical History Ongoing Acquired hypothyroidism [...] Constant Order Digitally Signed by KUMAR JAMES APRN-ORTHOPEDIC NURSE on 01/23/2024 02:32 PM Digitally Signed by KUMAR JAMES APRN-KACI on 01/23/2024 02:37 PM [facility]06-15-2024 Hospital Discharge instructions Follow Up Care 01/22/2024 13:08:57 With:BROOKS OSUNA Address: [address] [address] [place] [address]- When:02/09/2024 09:30:00 Comments:This is your cardiology post-hospital appointment. It is with Dr. Anderson's physician assistant printer floor covering. The office is inside [facility]. With:ESTER BEJARANO MSN, VALLEZ FILTER OPERATOR Address: [facility] [address] [place] [address]- When: Unknown [facility] History of Present illness Narrative* Nicky Paz LPN - 01/20/2024 6:31 PM EDT Scan on 01/20/2024 4:13 PM by ProviderLizandro PA-C Scan on 01/20/2024 3:44 PM by ProviderLizandro PA-C: Consultation - Emergency Medicine Scan on 01/20/2024 2:21 PM by ProviderLizandro PA-C: Miscellaneous Cardiac documented in this encounter[facility] Telephone encounter Note * Telephone Encounter - Carl Encarnacion MD - 01/11/2024 4:46 PM EDT Noted. [facility]06-04-2024 Miscellaneous Notes* Telephone Encounter - Carl Encarnacion MD - 01/11/2024 4:46 PM EDT Noted. * Telephone Encounter - Ana Parish LPN - 01/11/2024 4:05 PM EDT Jonathan with [facility] calls to report pt was discharged from PT today. Jonathan reports pt has made good progress and pt said she is done with PT. Ana Parish LPN documented in this encounterSelect [facility]06-[facility]24 Telephone encounter Note * Telephone Encounter - Ana Parish LPN - 01/11/2024 4:05 PM EDT Jonathan with [facility] calls to report pt was discharged from PT today. Jonathan reports pt has made good progress and pt said she is done with PT. Ana Parish LPN [facility]05-31-2024 Telephone encounter Note* Telephone Encounter - Yancy Wetzel RN - 01/07/2024 4:38 PM EDT Call placed to daughter and notified of below message. Stefano verbalizes understanding. Yancy Wetzel RN [facility]05-31-2024 Miscellaneous Notes* Telephone Encounter - Yancy Wetzel RN - 01/07/2024 4:38 PM EDT Call placed to daughter and notified of below message. Stefano verbalizes understanding. Yancy Wetzel RN * Telephone Encounter - Ester Bejarano APRN.VALLEZ FILTER OPERATOR - 01/07/2024 4:28 PM EDT Very [...] previous ATB was. Requesting prescription go to [facility]. Please review and advise, Yancy Wetzel RN documented in this encounterSelect Medical [facility]-31-[facility]24 Telephone encounter Note * Telephone Encounter - [...] Bactrim with a full glass of water. [facility]05-31-2024 Telephone encounter Note* Telephone Encounter - Yancy [...] previous ATB was. Requesting prescription go to [facility]. Please review and advise, Yancy Wetzel RN [facility]05-30-2024 Telephone encounter Note* Telephone Encounter - Carl Encarnacion MD - 01/06/2024 6:15 PM EDT Info noted. Patient has been on the tramadol for several years and the last script for compazine was back in 05/2023 per oncology. [facility]05-30-2024 Miscellaneous Notes* Telephone Encounter - Carl Encarnacion MD - 01/06/2024 6:15 PM EDT Info noted. Patient has been on the tramadol for several years and the last script for compazine was back in 05/2023 per oncology. * Telephone Encounter - Angeline Robbins RN - 01/06/2024 3:36 PM EDT Zabrina from [facility] calls and reports that patient is being discharged from OT services due to patient meeting goals. Zabrina also notes that patient's prn prochlorperazine does have an interaction with Tramadol. Patientreports that she does not take prochlorperazine often. Angeline Robbins RN documented in this encounterSelect Medical [facility]05-30-2024 Telephone encounter Note * Telephone Encounter - Angeline Robbins RN - 01/06/2024 3:36 PM EDT Zabrina from [facility] calls and reports that patient is being discharged from OT services due to patient meeting goals. Zabrina also notes that patient's prn prochlorperazine does have an interaction with Tramadol. Patientreports that she does not take prochlorperazine often. Angeline Robbins RN [facility]05-30-2024 Telephone encounter Note* Telephone Encounter - Kumar Cooley MA - 01/06/2024 10:12 AM EDT Patient was made aware of the results. Patient verbalizes understanding. Kumar Cooley Ma [facility]05-30-2024 Miscellaneous Notes* Telephone Encounter - Kumar Cooley MA - 01/06/2024 10:12 AM EDT Patient was made aware of the results. Patient verbalizes understanding. Kumar Cooley Ma * Telephone Encounter - Ester Bejarano APRN.CNS - 01/06/2024 9:43 AM EDT Please let patient know that she does have a E. coli infection in her urine. I am calling in [employer] twice daily for 7 days. Repeat urinalysis once antibiotic is completed. * Telephone Encounter - Izzy Duarte LPN - 01/06/2024 9:19 AM EDT Daughter calling for results of pt's UA. Please advise, Pharmacy updated. Izzy Duarte LPN documented in this encounterSelect Medical [facility]05-30-2024 Telephone encounter Note * Telephone Encounter - Ester Bejarano APRN.CNS - 01/06/2024 9:43 AM EDT Please let patient know that she does have a E. coli infection in her urine. I am calling in [employer] twice daily for 7 days. Repeat urinalysis once antibiotic is completed. [facility]05-30-2024 Telephone encounter Note* Telephone Encounter - Izzy Duarte LPN - 01/06/2024 9:19 AM EDT Daughter calling for results of pt's UA. Please advise, Pharmacy updated. Izzy Duarte LPN [facility]05-28-2024 Telephone encounter Note* Telephone Encounter - Ana [...] Please advise. Thank you. Ana Parish LPN. [facility]05-28-2024 Miscellaneous Notes* Telephone Encounter - Ana Parish [...] you. Ana Parish LPN. documented in this encounterSelect Medical [facility]05-18-2024 [facility]05-18-2024 History of Present illness Narrative* Carl Encarnacion MD - 12/25/2023 11:20 AM EDT Patient's home health 485 form / care plan for certification period 12/14/2023 to 02/11/2024 reviewed and signed. Relevant medical records were reviewed. No changes were indicated documented in this encounterSelect Medical [facility]05-14-2024 NoteHNO ID: [id number] Author: ZABRINA CHAVEZ LPN Service: ? Author Type: LICENSED NURSE Type: Progress Notes Filed: 12/21/2023 14:07 Note Text: Scan on 12/21/2023 10:35 AM by Lizandro Robertson PA-C: Dis[facility] History of Present illness Narrative* Zabrina Chavez LPN - 12/21/2023 2:07 PM EDT Scan on 12/21/2023 10:35 AM by Lizandro Robertson PA-C: Discharge Summary Zabrina Chavez LPN documented in this encounterSelect Medical [facility]05-09-2024 Telephone encounter Note * Telephone Encounter - Dannielle Tam MA - 12/16/2023 3:43 PM EDT Patient informed and verbalized understanding. Dannielle Tam MA [facility]05-09-2024 Miscellaneous Notes* Telephone Encounter - Dannielle Tam [...] she finishes her antibiotic. documented in this encounterSelect Medical [facility]05-09-2024 Telephone encounter Note * Telephone Encounter - [...] recheck urinalysis when she finishes her antibiotic. [facility]05-08-2024 Telephone encounter Note* Telephone Encounter - Keily Rico MA - 12/15/2023 4:27 PM EDT Left detailed message. Keily Rico MA [facility]05-08-2024 Miscellaneous Notes* Telephone Encounter - Keily Rico MA - 12/15/2023 4:27 PM EDT Left detailed message. Kiely Rico MA * Telephone Encounter - Carl Encarnacion MD - 12/15/2023 4:24 PM EDT Yes I'm ok with the additional 3 visits. * Telephone Encounter - Gina Curiel LPN - 12/15/2023 12:27 PM EDT Kelsie from [facility] calling verbal ok for 3 additional visits for OT. They plan to see patient 1 time a week for 3 weeks. Please advise. documented in this encounterSelect Medical [facility]05-08-2024 Telephone encounter Note * Telephone Encounter - Carl Encarnacion MD - 12/15/2023 4:24 PM EDT Yes I'm ok with the additional 3 visits. [facility]05-08-2024 Telephone encounter Note* Telephone Encounter - Gina Curiel LPN - 12/15/2023 12:27 PM EDT Kelsie from [facility] calling verbal ok for 3 additional visits for OT. They plan to see patient 1 time a week for 3 weeks. Please advise. [facility]05-07-2024 Telephone encounter Note* Telephone Encounter - Carl Encarnacion MD - 12/14/2023 3:30 PM EDT Noted. Med list updated. [facility]05-07-2024 Miscellaneous Notes* Telephone Encounter - Carl Encarnacion MD - 12/14/2023 3:30 PM EDT Noted. Med list updated. * Telephone Encounter - Nori Krueger RN - 12/14/2023 2:22 PM EDT Jonathan- PT- [facility]- reports he saw patient today for start of care, and will continue to see patient for 7 more visits. Reports patient was in [facility], then transferred to [facility], then discharged to home on 12-11-23. [...] relief (mucinex) medication prn. documented in this encounterSelect Medical [facility]05-07-2024 Telephone encounter Note * Telephone Encounter - Nori Krueger, RN - 12/14/2023 2:22 [address] [facility]- reports he saw patient today for start of care, and will continue to see patient for 7 more visits. Reports patient was in [facility], then transferred to [facility], then discharged to home on 12-11-23. [...] takes a mucous relief (mucinex) medication prn. [facility]05-06-2024 Note* Addendum Note - Ester Bejarano APRN.CNS - 12/13/2023 1:45 PM EDTAddended by: ESTER BEJARANO on: 12/13/2023 01:45 PM Modules accepted: Orders [facility]05-06-2024 Miscellaneous Notes* Addendum Note - Ester Bejarano APRN.CNS - 12/13/2023 1:45 PM EDTAddended by: ESTER BEJARANO on: 12/13/2023 01:45 PM Modules accepted: Orders documented in this encounterSelect Medical [facility]24 Instructions* Patient Instructions* Ester Bejarano APRN.CNS - 12/13/2023 1:15 PM EDT 1) Get urine culture 2) Handicapped placard for 5 years 3) Keep appointment February 16 as scheduled documented in this encounterSelect Medical [facility]-06-2024 History of Present illness Narrative* Ester Bejarano [...] 03/2023: bilaterally Ovarian cancer (HCC) 05/17/2023 Seeing outsole rounder Pneumonia due to COVID-19 virus 05/07/2021 04/27/2021 [...] as needed for worsening/no improvement. Ester Bejarano APRN.VALLEZ FILTER OPERATOR documented in this encounterSelect Medical [facility]05-06-2024 [facility] Telephone encounter Note* Telephone Encounter - Sruthi Pisano MA - 12/13/2023 11:49 AM EDT Yuri was notified Sruthi Pisano MA [facility]05-06-2024 Miscellaneous Notes* Telephone Encounter - Sruthi Pisano MA - 12/13/2023 11:49 AM EDT Yuri was notified Sruthi Pisano MA * Telephone Encounter - Carl Encarnacion MD - 12/13/2023 10:53 AM EDT I will follow for [facility] orders. The F2f report needs signed by the provider who placed the order to consult [facility] for PHYSICAL THERAPY and OT at [facility]. * Telephone Encounter - Izzy Duarte LPN - 12/13/2023 9:10 AM EDT Yuri with [facility] calling to let you know pt is went home from [facility] over the weekend and pt has been referred to [facility] for PT and OT. DX: had a fall and was admitted for rhabdomyolysis. Please call with verbal orders that you will follow and sign for Home Care. Izzy Duarte LPN documented in this encounterSelect Medical [facility]-06-2024 Telephone encounter Note * Telephone Encounter - Carl Encarnacion MD - 12/13/2023 10:53 AM EDT I will follow for [facility] orders. The F2f report needs signed by the provider who placed the order to consult [facility] for PHYSICAL THERAPY and OT at [facility]. [facility]05-06-2024 Telephone encounter Note* Telephone Encounter - Izzy Duarte LPN - 12/13/2023 9:10 AM EDT Yuri with [facility] calling to let you know pt is went home from [facility] over the weekend and pt has been referred to [facility] for PT and OT. DX: had a fall and was admitted for rhabdomyolysis. Please call with verbal orders that you will follow and sign for Home Care. Izzy Duarte LPN [facility]05-04-2024 Nurse Discharge summary discharge instructions reviewed with daughter and pt, verbalized understanding, no questions at this time pt escorted out to private vehicle via [facility]05-04-2024 Note Discharge Instructions Thank you for allowing [facility] to assist you with your healthcare needs. The following is importantdischarge information regarding your hospital visit. Your Care Team ESTER BEJARANO, VALLEZ FILTER OPERATOR Your Diagnosis Acquired hypothyroidism Asthenia Benign hypertension Fever Gastro-esophageal reflux Rash What to do next Instructions From Your Doctor You were admitted to [facility] transitional care program for rehab after a hospital stay at [facility]. You have progressed well with therapy and they feel that you are ready to transition back home. Our social work program coordinator has arranged for home health PT and OT to take over and see you in your home. We made no changes to your medications and you stated that you did not need any refills. Our social work program coordinator set-up an appointment with your PCP for next week. The date and time are on your discharge instructions. If you have any new or worsening problems, please contact your PCP or return to the ED. We wish you the best as you discharge home today. Thank you for using [facility] transitional care program for your rehab needs! Scheduled Follow-Up Appointments Appointment Type When Where Contact InformationEcho - Echocardiogram Adult 08/21/2024 11:00 AM [facility] Radiology [phone] CV OV 09/21/2024 01:15 PM [facility] [place] Follow Up Appointments Follow Up with [facility] When 12/13/2023 11:00 AM EDT Why: This is your PCP appointment. It will be with the nurse practitioner, Ester Bejarano. Follow-up as scheduled. Where: [address] [place] [phone] The Following Activity and Diet Have Been [...] Consider working with a physical therapist or canine service instructor trainer who can develop an exercise plan to help you gain muscle strength. General instructions Take vyvs-rgf-xdgislm and prescription medicines only as told by [...] 07/26/2006 Document Revised: 03/01/2019 Document Reviewed: 03/01/2019 Torrential Patient Education 2020 [employer]. Additional Information VACCINATE! IT SAVES LIVES! Members of the community who have not yet received the COVID-19 vaccine and would like to receive it can visit one of [facility] vaccine clinics. There are many vaccine clinic locations within the [facility]. For locations and available times, please visit https://gettheshot.coronavirus.[place].gov/. It is important to note that some COVID mobile vaccine clinics are held outdoors and may be canceled in rainy or stormy conditions. To learn more about pediatric vaccinations (ages 5-11), we invite you to visit the [facility] webpage. https://www.[facility].org/pages/0604-Tfwdm-Dfzgjmphdcy-Yzwreddrvb-Kpgzo-Wvd stions.htmlTo learn more about the COVID-19 vaccine, we invite you to visit the CDC website for a list of frequently asked questions.https://www.cdc.gov/coronavirus/2019-ncov/vaccines/faq.html [facility] Patient Portal Access Instructions: Stay connected with your healthcare team and access your personal medical information anytime with the [facility] Patient Portal. Please follow the directions below to create your [facility] account: 1.Access the email account you provided upon registration to the hospital/physician office.2.Look for an invitation email from [facility].3.Open the email and access the invitation link: AcceptInvitation to [facility].4.Fill in the required martinez to create your account. To access your account, visit [email or web address]. Click the blue button labeled "Access Patient Portal" and then log in with the username and password that you created in the steps above. You will be able to view your test results, lab results, a summary of your visits, upcoming appointments and more. There is also a convenient messaging option where you can send secure messages to your p CGTradervider. In addition, you will have the ability to download any documents or summaries to your computer and/or send the information securely to a physician. Remember that your healthcare information is confidential, so carefully consider who you will allowto register on the [facility] Patient Portal for access to your information. You can also access the [facility] Patient Portal on the [facility] Loginzawhere guille. Simply click on "Patient Portal" and then log into your account. If you would like to receive a full copy of your medical records, please contact the [facility] Medical Records Department by calling [phone], Wednesday through Wednesday between 8 a.m. and [...] Call your local pharmacy or go to http://[employer]/3J6Gt8z to find one close to you.3.Make use of household items: Use cat litter or old coffee grounds to dispose medications if other options arenot available. Mix your drugs with these household products, seal them in an airtight container andthrow it into the garbage. Call [facility]: [phone] to be sure your drugs can be [...] been reviewed and explained to me and IEULA RACHEL Sunderstand my current condition and have read and understand these discharge instructions. I have received a written copy of the plan/instructions. If I have questions, I am aware that I should contact my doctor. Patient/Motion Picture Printer Signature: Date/Time: Relationship to Patient: Witness Name/Signature: Date/Time: [facility]us [id number] Hospital Discharge instructions Patient Education 12/11/2023 08:02:58 [...] Consider working with a physical therapist or canine service instructor trainer who can develop an exercise plan to help you gain muscle strength. General instructions Take rxsx-pju-jwequam and prescription medicines only as told by [...] 07/26/2006 Document Revised: 03/01/2019 Document Reviewed: 03/01/2019 Torrential Patient Education 2020 [employer]. Follow Up Care 11/26/2023 15:27:14 With:[facility] Address: [address] [place] [phone] When:12/13/2023 11:00:00 Comments:This is your PCP appointment. It will be with the nurse practitioner, Ester Bejarano. Follow-up as scheduled. [facility] 04-29-2024 Note Date of Service 12/06/2023 Chief Complaint Asthenia Subjective 83-year-old female with past medical history significant for HTN, HLD, hypothyroidism, GERD, PE. Patient presented to [facility] on 11/23/2023 after sustaining a fall at home. She was treated for rhabdomyolysis and UTI. She was initially treated with ceftriaxone and then transition to Keflex. She was evaluated by therapy services with recommendation for SNF. She was subsequently admitted to [facility] TCU. 12/01 therapy reported that patient [...] may include grammatical and/or spelling errors. CPT: 90526 Anticipated Date of Discharge 12/09 Time Spent 22 minutes Digitally Signed by STEFANO GRAHAM on 12/06/2023 11:26 AM [facility]04-29-2024 Telephone encounter Note* Telephone Encounter - Kristen Eugene PA-C - 12/06/2023 10:21 AM EDT The following approved medication requests have been transmitted electronically. Requested Prescriptions Signed Prescriptions Disp Refills traMADol (ULTRAM) 50 mg tablet 60 tablet 0 Sig: Take 1 tablet by mouth two times a day for 30 days. for arthritis pain. Authorizing Provider: KRISTEN EUGENE PA-C [facility]04-29-2024 Miscellaneous Notes* Telephone Encounter - Kristen Eugene PA-C - 12/06/2023 10:21 AM EDT The following approved medication requests have been transmitted electronically. Requested Prescriptions Signed Prescriptions Disp Refills traMADol (ULTRAM) 50 mg tablet 60 tablet 0 Sig: Take 1 tablet by mouth two times a day for 30 days. for arthritis pain. Authorizing Provider: KRISTEN EUGENE PA-C * Telephone Encounter - [place] Trina Estrada - 12/06/2023 8:03 AM EDT [...] Thank you. Trina Estrada. documented in this encounterSelect Medical [facility]04-29-2024 Telephone encounter Note * Telephone Encounter - [place] Trina Estrada - 12/06/2023 8:03 AM EDT [...] 02/17/2024 Please advise. Thank you. Trina Estrada. [facility]04-26-2024 Note Date of Service 12/03/23 Chief Complaint Asthenia Subjective 83-year-old female with past medical history significant for HTN, HLD, hypothyroidism, GERD, PE. Patient presented to [facility] on 11/23/2023 after sustaining a fall at home. She was treated for rhabdomyolysis and UTI. She was initially treated with ceftriaxone and then transition to Keflex. She was evaluated by therapy services with recommendation for SNF. She was subsequently admitted to [facility] TCU. 12/01 therapy reported that patient [...] and may include grammatical and/or spelling errors. 39010 Anticipated Date of Discharge 12/16 Time Spent 30 minutes Digitally Signed by STEFANO GRAHAM on 12/03/2023 11:27 AM [facility]04-26-2024 HCoV 229E RNA FAUSTO+non-probe Ql (Nph) Not Detected *NA* (12/03/23 8:03 AM) Auto Viro/Sero [id number] Note Date of Service 12/01/2023 Chief Complaint [...] by or aware of it. Will check labs tomorrow to make sure renal function is stable. Patient denies any fever, chills, cough, shortnessof breath, chest pain, abdominal pain, nausea or [...] OT to evaluate and treat - following. consumer services advisor following for discharge planning. 2. Benign hypertension [...] patient, discussed plan of care with nursing, geriatric social worker and therapy, collaborating with physician, and documenting in chart. CPT#61468 Digitally Signed by KUMAR JAMES on 12/01/2023 07:37 PM [facility]04-20-2024 Note Date of Service 11/27/2023 Chief Complaint weakness History of Present Illness Patient is an 83-year-old female, who follows with Dr. Ministerio Crabtree with a past medical history significant for hypertension, hyperlipidemia, hypothyroidism, GERD and PE, presented to [facility] on 11/23/2023 after sustaining a fall [...] Ceftriaxone IV. Urine culture ultimately grew roman-sensitive E. Coli and patient was transitioned to Keflex for 7 days. Patient was seen by PT and OT during her stay and they recommended a skilled stay. Patient was approved by insurance and arrived last evening for [facility] transitional care program. Patient was seen this morning while resting in her chair. She states that she is doing well and denies any new complaints. She continues to have pain in her left lower extremity when she bears weight. She states that her leg was imaged at [facility] and was negative for an acute fracture. Introduced self and role of hospitalist MANAGER PUBLISHING in her care while in the TCU. [...] PT and OT to evaluate and treat. consumer services advisor following for discharge planning. 2. Benign hypertension [...] patient, discussed plan of care with nursing, geriatric social worker and therapy, collaborating with physician, and documenting in chart. CPT#85260 Problem List/Past Medical History Ongoing Acquired hypothyroidism [...] by KUMAR JAMES on 11/27/2023 02:00 PM [facility]04-20-2024 Evaluation + Plan noteExtracted from: Title:History and Physical Author:KUMAR JAMES APRN-ORTHOPEDIC NURSE Date:11/27/23 1. Asthenia Acute, secondary to UTI and hospitalization. Consult placed to PT and OT to evaluate and treat. consumer services advisor following for discharge planning. 2. Benign hypertension [...] patient, discussed plan of care with nursing, geriatric social worker and therapy, collaborating with physician, and documenting in chart. CPT#20161 Future Appointments Appointment Date:08/21/2024 11:00:00 AM Scheduled Provider: Location:[facility] Appointment Type:Echo - Echocardiogram Adult Appointment Date:09/21/2024 01:15:00 PM Scheduled Provider: Location:[facility] Appointment Type:CV OV [facility] 04-19-2024 Consult note Author Dalila Biswas [facility] November 26, 2023 2:23pm Note Date/Time November 26, 2023 2:2 3pm [facility] Medical Records Department [address] [place] [address] Counseling Note - Pharmacy 11/26/23 1422 MR#: [id number] Acct: [id number] Name: STEFANO WASHINGTON Rep #:[id number] : 1940 83 From: Dalila Biswas PCP: Dr. Carl Encarnacion MD Status:ADM IN [facility] [place] [facility] Reconciliation Pharmacy Service has performed discharge [...] Signature (if applicable): Date CC: ~ Signed [facility] Work Phone: 1(957) 720-694704-19-2024 Discharge summary Author Kelby Lauren [facility] November 26, 2023 1:50pm Note Date/Time November 26, 2023 1:5 0pm [facility] Medical Records Department [address] [place] [address] Discharge Summary 11/26/23 1349 MR#: [id number] Acct: [id number] Name: STEFANO WASHINGTON Rep #:[id number] : 1940 83 From: Kelby saldaña DO PCP: Dr. Carl Encarnacion MD Status:ADM IN Location: [place] [address] Providers Date of Admission: 11/23/23 Date of [...] Patient is an 83-year-old female who presented [facility] ED on 11/23/2023 after a fall [...] in before D/C Order can be placed): Penitentiary Facility Charges/Coding Visit Charges Inpatient E&M: 95006 Disch Hosp >30min 11/26/23 1350 <Electronically signed by Kelby Aguilar DO> Cosigner Signature (if applicable): CC: Dr. Kelby Aguilar DO; Dr. Carl Encarnacion MD~ Signed [facility] Work Phone: 1(713) 999-738104-19-2024 Discharge summary Author Kelby Aguilar [facility] November 26, 2023 1:49pm Note Date/Time November 26, 2023 1:[address] [facility] Medical Records Department [address] [place] [address] Transfer to Extended Care MR#: [id number] Acct: [id number] Name: STEFANO WASHINGTON Rep #:[id number] : 1940 83 From: Kelby saldaña DO PCP: Dr. Carl Encarnacion MD Status:ADM IN Certification of patient admission REQUIRED AT TIME OF ADMISSION. I CERTIFY THAT POST-HOSPITAL ECF SERVICES ARE REQUIRED TO BE GIVEN ON AN IN-PATIENT BASIS BECAUSE OF THE ABOVE NAMED PATIENT'S NEED FOR [facility]CI CARE ON A CONTINUING BASIS FOR THE [...] Patient is an 83-year-old female who presented [facility] ED on 11/23/2023 after a fall [...] levothyroxine 88 mcg tablet 88 mcg [facility] Patient Comments: TAKE ONE TABLET BY [...] in before D/C Order can be placed): Penitentiary Facility 11/26/23 1349 <Electronically signed by Kelby Aguilar DO> Cosigner Signature (if applicable): CC: Dr. Carl Encarnacion MD ~ [facility] Work Phone: 1(401) 620-135604-19-2024 Progress note Author [facility] November 26, 2023 11:44am Note Date/Time November 26, 2023 11: 44am [facility] Medical Records Department [address] [place] [address] Progress Note - Hospitalist 11/26/23 1141 MR#: [id number] Acct: [id number] Name: STEFANO WASHINGTON Rep #:[id number] : 1940 83 From: Kelby saldaña DO PCP: Dr. Carl Encarnacion MD Status:ADM IN Location: [place] 392131-1 Reason for Visit Reason for Visit: Diagnoses [...] concerns this morning. Had been told by caseworker that [facility] rehab had accepted her and she [...] Patient is an 83-year-old female who presented [facility] ED on 11/23/2023 after a fall [...] following. Accepted to an hospital rehab at [facility], awaiting bed placement. Medically stable for [...] 35 minutes. Charges/Coding Visit Charges Inpatient E&M: 08321 Subs Hosp L2 11/26/23 1144 <Electronically signed by Kelby Aguilar DO> Cosigner Signature (if applicable): CC: ~ Signed [facility] Work Phone: 1(556) 984-512504-18-2024 Progress note Author Kelby [facility] November 25, 2023 2:47pm Note Date/Time November 25, 2023 12: 24pm [facility] Medical Records Department [address] [place] [address] Progress Note - Hospitalist 11/25/23 1224 MR#: [id number] Acct: [id number] Name: STEFANO WASHINGTON Rep #:[id number] : 1940 83 From: Kelby saldaña DO PCP: Dr. Carl Encarnacion MD Status:ADM IN [facility] Reason for Visit Reason for Visit: Diagnoses Rhabdomyolysis (11/23/23) Urinary tract infection, site not specified (11/23/23) Weakness (11/23/23) Unspecified fall, initial encounter (11/23/23) Subjective Subjective No acute events overnight. Patient seen at bedside this morning, caseworker also present at bedside. Patient had fairly poor therapy scores yesterday and recommendation was for SNF on discharge. Unfortunately, caseworker told patient and family this morning that TCU was not able to accept her. Patient and family were okay with referrals being sent to [facility] in-hospital rehab facilities instead. Patient states that [...] Patient is an 83-year-old female who presented [facility] ED on 11/23/2023 after a fall [...] patientwould be a better candidate for a care home facility on discharge as opposed to home health care. TCU not able to accept patient, referrals sent to [facility] and [facility] rehab facilities and are pending. Patient [...] 35 minutes. Charges/Coding Visit Charges Inpatient E&M: 28191 Subs Hosp L2 11/25/23 2647 <Electronically signed by Kelby Aguilar DO> Cosigner Signature (if applicable): CC: ~ Signed [facility] Work Phone: 1(770) 984-266204-17-2024 Progress note Author Kelby [facility] November 24, 2023 3:43pm Note Date/Time November 24, 2023 10: 18am [facility] Medical Records Department [address] [place] [address] Progress Note - Hospitalist 11/24/23 1018 MR#: [id number] Acct: [id number] Name: STEFANO WASHINGTON Rep #:[id number] : 1940 83 From: Kelby saldaña DO PCP: Dr. Carl Encarnacion MD Status:ADM IN Location: [place] [address] Reason for Visit Reason for Visit: Diagnoses [...] Clear Calc 48.91, Est GFR (MDRD) Af Somq218, Est GFR (MDRD) Non-Af 105, BUN/Creatinine Ratio [...] Patient is an 83-year-old female who presented [facility] ED on 11/23/2023 after a fall [...] would be a better candidate for a care home facility on discharge as opposed to [...] 35 minutes. Charges/Coding Visit Charges Inpatient E&M: 67539 Subs Hosp L2 11/24/23 1546 <Electronically signed by Kelby Aguilar DO> Cosigner Signature (if applicable): CC: ~ Signed [facility] Work Phone: 1(362) 462-937404-17-2024 [facility] History of Present illness Narrative* Keily Rico MA - 11/24/2023 3:20 PM EDT Scan on 11/23/2023 2:46 PM by ProviderLizandro PA-C: Consultation - Emergency Medicine Scan on 11/23/2023 3:47 PM by ProviderLizandro PA-C: Consultation - Emergency Medicine Patient admitted 11/23/2023 Keily Rico MA documented in this encounterSelect Medical [facility]24 Discharge summary Author Smith Ho [facility] November 23, 2023 3:37pm Note Date/Time November 23, 2023 8:[address] [facility] Medical Records Department [address] [place] [address] Emergency Department Summary 11/23/23 MR#: [id number] Acct: [id number] Name: STEFANO WASHINGTON Rep #:[id number] : 1940 83 From: Smith Ho MD PCP: Dr. Carl Encarnacion MD Status:ADM IN Location: MS3 HY321-2 HPI History of Present Illness Chief Complaint: [...] No shortening or rotation. She has normal channel specialist strength both hands. She is able to [...] 77.0 H Lymph % (Auto) 12.9 L Barnwell % (Auto) 9.0 Eos % (Auto) 0.1 [...] Clarity Cloudy Urine pH 6.0 Ur Specific Bluebell 1.010 Urine Protein 30 H Urine Glucose [...] rhythm rate 100 no acute signs of CO or ischemia. Right bundle branch block. Discharge Plan Dx/Rx/DC Orders Clinical Impression: Urinary tract infection, Generalized weakness, Rhabdomyolysis, Fall Disposition Disposition: Acute Care Hospital [facility] What to do if you have Problems For any increased pain, shortness of breath, bleeding, nausea or vomiting, chestpain, or any unexpected problems, contact your Primary Care Provider. Call [facility] ([phone]) or report to the closest Emergency Room. Call 911 if necessary. 11/23/23 1537 <Electronically signed by Smith Ho MD> Cosigner Signature (if applicable): CC: Dr. Carl Encarnacion MD ~ Signed [facility] Work Phone: 1(963) 277-774604-16-2024 History and physical note Author [place]by [place] November 23, 2023 2:36pm Note Date/Time November 23, 2023 11: 38am [facility] Medical Records Department [address] [place] [address] H&P Exam - Hospitalist 11/23/23 1137 MR#: [id number] Acct: [id number] Name: STEFANO WASHINGTON Rep #:[id number] : 1940 83 From: Kelby saldaña DO PCP: Dr. Carl Encarncaion MD Status:ADM IN [place] [facility] [id number] HPI - General General Date of Admission: 11/23/23 Date of Service: 11/23/23 Chief Complaint: Fall with weakness HPI Narrative STEFANO WASHINGTON, is a 83 F [address] presented to [facility] ED on 11/23/2023 after a fall [...] previously had a bad experience at another long-term and significantly prefers to go to the TCU on discharge if needed. In the ED, patient was found to have a creatinine kinase level of 2446. Kidney function was at baseline. CBC and BMP were otherwise benign. Chest x-ray was nonacute. UA was infectious appearing. Given her acute debility, rhabdomyolysis and concern for UTI, patient was admitted for further management. [facility] Medical History (Updated 11/23/23 @ 12:59 by [...] 77.0 H, Lymph % (Auto) 12.9 L, Barnwell % (Auto) 9.0, Eos % (Auto) 0.1, [...] Clarity Cloudy, Urine pH 6.0, Ur Specific Bluebell 1.010, Urine Protein 30 H, Urine Glucose [...] Patient is an 83-year-old female who presented [facility] ED on 11/23/2023 after a fall at home and being down for several hours after that due to weakness. 1. Mechanical fall, acute on chronic debility ? Admit under inpatient status to [facility]. PT/OT/case management consulted. Lives at home alone, [...] 35 minutes. Charges/Coding Visit Charges Inpatient E&M: 81810 Init Hosp L2 11/23/23 1436 <Electronically signed by Kelby Aguilar DO> Cosigner Signature (if applicable): CC: Dr. Kelby Aguilar DO; Dr. Carl Encarnacion MD~ Signed [facility] Work Phone: 1(722) 803-894702-29-2024 Miscellaneous Notes* Telephone Encounter - Kristen Eugene [...] Thank you. Linn Estrada. documented in this encounterSelect Medical Cleveland Clinic [facility]02-01-2024 Note* Exam Date Time Procedure Performing Provider Status 09/09/23 12:44 PM Echocardiogram, Adult (AOH) Auth (Verified) [facility] 01-10-2024 [facility]Tr[facility]12-18-2023 History of Present illness Narrative* Prosper Amador [...] Castillo. Does not want to return to [place]. Does not want to take anything that may impact her blood counts. Not interested in PARP inhibitor. Declines labs and scans. Will continue to follow with Dr. Encarnacion, next appt scheduled 08/18/2023. Following with cardiology at [place]. She reports that she is feeling well. [...] - follow up as needed. Prosper Amador, REBECCA.ORTHOPEDIC NURSE Portions of this note including HPI, ROS, impression/plan may have been copied forward as to provide important historical information essential in contributing to medical decision making. Documentation has been reviewed and edited as necessary to support clinical decision making for today's visit and to reflect my own independent evaluation of this patient. documented in this encounterSelect Medical Cleveland Clinic Rehabilitation Hospital, [facility]12-18-2023 NoteTr[facility]12-08-2023 Miscellaneous Notes* Telephone Encounter - Amanda Coles [...] appointments canceled as requested documented in this encounterSelect Medical Cleveland Clinic Rehabilitation [facility], [facility]12-04-2023 Miscellaneous Notes* Telephone Encounter - Izzy Duarte LPN - 07/12/2023 2:11 PM EST Daughter notified and wants to make sure she does not have any problems with the next prescription. Called the [facility] and spoke with the pharmacist. I [...] review. Izzy Duarte LPN documented in this encounterSelect Medical Cleveland Clinic Rehabilitation [facility], [facility]11-29-2023 NoteTr[facility]11-29-2023 History of Present illness Narrative* Wilmar Forbes [...] Abs Lymph 1.00 - 4.00 k/uL 1.82 Barnwell% % 6.8 Abs Barnwell <0.87 k/uL 0.21 Eosin% % 1.6 Abs [...] is frail and would unlikely have tolerated afognak doublet. -Symptomatically tolerating carboplatin very well. -Reviewed [...] which included preparing to see the patient, gwew-pc-xuzu patient care, completing clinical documentation, obtaining and/or reviewing separately obtained history, performing a medically appropriate examination, counseling and educating the pat ient/family/caregiver, ordering medications, tests, or procedures, communicating with other HCPs (not separately reported), and communicating results to the patient/family/caregiver. Wilmar Forbes DO documented in this encounterSelect Medical Cleveland Clinic [facility], [facility]11-09-2023 Miscellaneous Notes* Telephone Encounter - Korin Mantilla [...] protocol. Korin Mantilla RN documented in this encounterSelect Medical Cleveland Clinic [facility]11-03-2023 Miscellaneous Notes* Telephone Encounter - Carl Encarnacion [...] notify patient. Stephanie Estrada documented in this encounterSelect Medical Cleveland Clinic [facility]11-03-2023 Miscellaneous Notes* Telephone Encounter - Korin Mantilla [...] protocol. Korin Mantilla RN documented in this encounterSelect Medical Cleveland Clinic [facility]10-30-2023 Miscellaneous Notes* Telephone Encounter - Carl Encarnacion [...] notify patient. Keily Rico MA Vira \\3 Nov 07/2023 Last refill: * Telephone Encounter - Stefano [...] call in. Stefano Estrada documented in this encounterSelect Medical Cleveland Clinic Rehabilitation [facility], [facility]10-30-2023 Miscellaneous Notes* Telephone Encounter - Angeline Shaikh [...] authorization purposes. Angeline Shaikh documented in this encounterSelect Medical Cleveland Clinic [facility], [facility]10-30-2023 Miscellaneous Notes* Telephone Encounter - Susan Quick [...] you. Korin Mantilla RN documented in this encounterSelect Medical Cleveland Clinic Rehabilitation [facility], [facility]10-27-2023 NoteHNO ID: [id number] Author: Korin Mantilla RN Service: ? Author Type: Registered Nurse Type: Progress Notes Filed: 06/04/2023 1:18 PM Note Text: This visit was completed via telephone. Korin Mantilla RNTrinity Health System East Campus10-27-2023 History of Present illness Narrative* Korin Mantilla [...] Mantilla RN - 06/04/2023 1:14 PM EDT Clinical Education Assistant Pre Chemo Patient identified by name and date of . YES Confirmed date and time for chemotherapy ? YES Other appointments (labs, imaging) discussed? 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 Patient was given a My Journey binder with chemocare information, office contact information, thermometer, and additional chemotherapy resource booklets. Patient aware this nurse will review on scheduled appointment date. Korin Mantilla RN documented in this encounterSelect Medical Cleveland Clinic [facility]10-25-2023 History of Present illness Narrative* Wilmar Forbes [...] (97.9 F), weight 73.5 kg (162 lb), [id number] %. Somewhat frail-appearing and in no acute [...] she would be able to tolerate a afognak doublet. -I discussed the logistics, potential risks [...] which included preparing to see the patient, kcct-av-ravq patient care, completing clinical documentation, obtaining and/or reviewing separately obtained history, performing a medically appropriate examination, counseling and educating the pat ient/family/caregiver, ordering medications, tests, or procedures, and communicating results to thepatient/family/caregiver. Wilmar Forbes DO documented in this encounterSelect Medical Cleveland Clinic [facility], [facility]10-25-2023 NoteTr[facility]10-23-2023 NoteTr[facility]10-23-2023 History of Present illness Narrative* Carl Encarnacion MD - 05/31/2023 8:50 AM EDT Patient's home health 485 form / care plan for certification period 05/12/2023 to 07/10/2023 reviewedand signed. Relevant medical records were reviewed. Changes were communicated to home health agency documented in this encounterSelect Medical Cleveland Clinic [facility], [facility]10-09-2023 NoteTr[facility]10-05-2023 Miscellaneous Notes* Telephone Encounter - Carl Encarnacion MD - 05/13/2023 4:57 PM EDT Noted. * Telephone Encounter - Angeline Robbins RN - 05/13/2023 11:34 AM EDT Kumar calling from [facility] to report plan of care for patient and care home willvisit patient 1 time a week for 2 weeks, 2 times a week for 2 weeks and 1 time a week for 3 weeks. [facility] will work with patient on teaching about chemotherapy and medication safety. Kumar also notes that patient has an order for Tramadol 50 mg twice a day. Patient was taking 100 mgonce a day. Kumar had explained to patient the importance of taking medication as prescribed. Angeline Robbins RN documented in this encounterSelect Medical Cleveland Clinic [facility], [facility]09-25-2023 History of Present illness Narrative* Eliot Castillo MD - 05/03/2023 4:45 PM EDT Gynecologic Oncology [facility] Postop Re: Stefano Washington [facility]#: [id number] Date of Service: 05/03/2023 Dr. Jacky Graves [...] vaginal cuff. Bimanual exam reveals no tenderness. Inspector Barrel offered: Patient accepts, visit chaperoned by Tuyet [...] can receive treatment with Dr Forbes in [place] and return here after completion of chemotherapy. [...] necessary changes were made. documented in this encounterSelect Medical Cleveland Clinic [facility], [facility]09-25-2023 NoteHNO ID: [id number] Author: Eliot Castillo MD Service: ? Author Type: Physician Type: Progress Notes Filed: 05/04/2023 4:46 AM Note Text: Gynecologic Oncology [facility] Postop Re: Stefano S Eula [facility]#: [id number] Date of Service: 05/03/2023 Dr. Jacky Graves [...] biopsy: Benign fibroadipose tissue. Diagnosis Comment Dr. Nicloe Maher review (more content not included)...[facility] [id number] Miscellaneous Notes* Telephone Encounter - Carl Encarnacion [...] advise. Baltazar Bazzi LPN documented in this encounterSelect Medical Cleveland Clinic Rehabilitation [facility], [facility]09-06-2023 NoteTr[facility]09-05-2023 NoteTr[facility]09-04-2023 NoteTr[facility]09-03-2023 NoteTr[facility]09-02-2023 Note [facility]09-02-2023 NoteTr[facility]09-02-2023 NoteTr[facility]09-01-2023 NoteTr[facility] 04-09-2023 Miscellaneous Notes* Telephone Encounter - Tamiko Ramirez LPN - 04/09/2023 3:08 PM EDT Keisha from [facility] Home Health returned call and family declined [...] - 04/09/2023 1:42 PM EDT //Keisha from [facility] calling patient is currently in main campus had ovarian mass, discharging sometime over the weekend. They received order for care home, PT/OT. Asking if PCP would follow and sign orders and give verbal order for delay in start of care until 04/13/2023? Aware PCP is out of office this afternoon. Please advise documented in this encounterSelect Medical Cleveland Clinic [facility], [facility]09-01-2023 NoteTr[facility]08-31-2023 NoteTr[facility]08-30-2023 NoteTr[facility]08-30-2023 NoteTr[facility]08-30-2023 Note [facility]08-30-2023 NoteTr[facility]08-29-2023 Instructions* Patient Instructions* Ousmane Jones APRN.ROGE CLEMONS - 04/06/2023 3:43 PM EDT PATIENT PREOPERATIVE INSTRUCTIONS No ref. provider found has scheduled you for your procedure at this surgery center: [facility] [place] Scheduling Office: [phone] --[address] [place] [address]. Please read below carefully for your personalized [...] Procedures: - YOU MUST HAVE A RESPONSIBLE MAINTENANCE CLERK TAKE YOU HOME. A MINE PROMOTOR OR PROFESSIONAL MODEL CANNOT BE MADE A RESPONSIBLE MAINTENANCE CLERK. - We recommend that a responsible person [...] call the Wednesday before. Your surgeon s dark room attendant will tell you what time to call the office. - If you have not reached the departmental dark room attendant by 5 P.M., call [phone] after 5 P.M. the day before your surgery. Please be aware that emergency situations arise, which may delay or change your surgical time. If this happens, we will notify you as soon as possible and regret any inconvenience. If you already have an Advance Directive, please fax a copy to [phone] or email to for it to be [...] into your chart that day. Viviana Jones APRN.ROGE CLEMONS documented in this encounterSelect Medical Cleveland Clinic [facility]08-29-2023 Miscellaneous Notes* Telephone Encounter - Ousmane Jones APRN.CNP, DNP - 04/06/2023 3:43 PM EDT Preop instruction documented in this encounterSelect Medical Cleveland Clinic Rehabilitation [facility], [facility]08-29-2023 History and physical note * Ousmane Jones APRN.CNP, DNP - 04/06/2023 3:00 PM EDT PREANESTHESIA CONSULT CLINIC TELEHEALTH VISIT I have communicated my name and active licensure. The patient's identity and physical location wereverified at the time of this visit. Either the patient or their legal commercial sales representative has been informed of the risks and benefits of and alternatives to treatment through a remote evaluation and consents to proceed with the evaluation remotely. Patient has been identified by name and date of : Yes This is a virtual visit using [employer] video visit. It require patient-provider interaction for the medical decision making as documented below. Reason for contact: PACC visit Accompanied by: Self Scheduled Surgery: HYSTERECTOMY ABDOMINAL TOTAL WITH SALPINGO-OOPHORECTOMY BILATERAL with Eliot Castillo MD on 04/07/2023 at [facility]. Subjective CHIEF COMPLAINT: Patient presents with: [...] fevers. Neuro: No history of TIA's, stroke, VALLEZ FILTER OPERATOR tumor, impaired sensorium, hemiplegia, paraplegia or quadraplegia. No neurological symptoms or problems. Respiratory: No history of current cough or dyspnea, or pneumonia in the past 6 weeks. No history of respiratory/pulmonary symptoms or problems. Cardiovascular: Positive for: HLD, Hypertension, on rx, PE on Eliquis 2 years ago during Covid infection, resolved with no reoccurrence, Negative for Recent CO, Angina, Arrhythmia, CAD, Chest Pain, CHF, PVD, Valvular Heart Disease GI: Positive for GERD, Giant hiatal hernia per recent CT abdomen/pelvis on rx, Negative for PUD, Heartburn, Nausea, Vomiting, Abdominal pain, Hepatitis, Liver disease, Inflammatory bowel disease, Colon cancer, Rectal cancer, Diverticulitis, History of polyps : Negative for dysuria, frequency, incontinence, decreased stream, and hematuria, Positive for mild bilateral hydronephrosis per CT abdomen/pelvis HOME CHILD CARE PROVIDER: See HPI :No LMP recorded. Patient is [...] age Abnormal ECG Confirmed by MATT MOREJON, [facility] ([id number]) on 03/22/2023 2:44:01 PM Most recent [...] this time. Patient has been cleared by [facility] cardiology Desi Madison on 03/26/2023. [...] device. I spent more than 0-20 minutes [id number]-[id number] with the patient and over half the [...] 2:42 PM PAGER/CONTACT #: documented in this encounterSelect Medical Cleveland Clinic Rehabilitation [facility], [facility]08-16-2023 Miscellaneous Notes* Telephone Encounter - Nanci Calloway - 03/24/2023 2:35 PM EDT Received CC [facility] but patient will be receiving services elsewhere . documented in this encounterSelect Medical Cleveland Clinic [facility], [facility]08-16-2023 Miscellaneous Notes* Telephone Encounter - Annmarie Mendoza APRN.CNP - 03/24/2023 2:28 PM EDT Patient's daughter called to report they found a cardiology office closer to home that they would like to go to instead as it is much closer to home. Appointment arranged with Dr.Sharan Ashok [facility] Coordinator [phone] on Monday 03/26 @ 145pm. Will follow up with patient/daughter after appt to determine when surgery can be scheduled. Annmarie Mendoza APRN.CNP documented in this encounterSelect Medical Cleveland Clinic [facility], [facility]08-14-2023 Miscellaneous Notes* Telephone Encounter - Tuyet Lorenz [...] Will await call/try again. documented in this encounterSelect Medical Cleveland Clinic [facility], [facility]08-14-2023 Miscellaneous Notes* Telephone Encounter - Tuyet Lorenz RN - 03/22/2023 3:42 PM EDT Spoke with daughter. Patient is scheduled for ECHO tomorrow , in [place]. * Telephone Encounter - Annmarie Mendoza APRN.KACI - 03/22/2023 3:10 PM EDT Please let patient/daughter know her EKG was showing some changes that require an echocardiogram before she can proceed with surgery. The order for the echo has been placed. Can you please help get this scheduled for tomorrow morning, since her surgery is on Wednesday at [facility]. Thanks documented in this encounterSelect Medical Cleveland Clinic [facility]08-14-2023 History of Present illness Narrative* Isamar Elizabeth [...] 22, 2023 1:22 PM documented in this encounterSelect Medical Cleveland Clinic [facility], [facility]08-14-2023 Miscellaneous Notes* Allied Health - Belkis Milton - 03/22/2023 1:00 PM EDT RADIOLOGY SERVICE PROGRESS NOTE DATE OF SERVICE: March 22, 2023 TIME OF SERVICE: 12:34PM EVENT: ARRIVED IN WHEELCHAIR ADDITIONAL EVENT DETAILS: NA SIGNATURE: Belkis Milton PATIENT NAME: Stefano Washington DATE: March 22, 2023 TIME: 12:56 PM PAGER/CONTACT #: documented in this encounterSelect Medical Cleveland Clinic [facility], [facility]08-08-2023 Miscellaneous Notes* Telephone Encounter - Kaye Mchugh RN - 03/16/2023 5:06 PM EDT Called daughter and informed her of appt made. I was told that [facility] is not available for several months.I did schedule patient for [place] and daughter was agreeable because we could get her in with Dr Castillo in about 2 weeks. Phone number given to daughter if they wish to try to get into [facility] [phone] * Telephone Encounter - Ely Rico MD - 03/16/2023 4:18 PM EDT Consult order filed Ely Rico MD * Telephone Encounter - Kaye Mchugh RN - 03/16/2023 3:48 PM EDT I called patient at the request of Dr Rico. Dr Rico has reviewed the patient referral from Dr Encarnacion and believes patient should be seen by outsole rounder/onc. Keyur tis agreeable. She asked me to call her daughter Stefano Quezada at [phone] to let her know. Patient's daughter is agreeable but states they do not want to go to [place]. They will go to [place]. Please file referral and let us know who you recommend in [place] documented in this encounterSelect Medical Cleveland Clinic [facility]08-01-2023 History of Present illness Narrative* Reef Ioana [...] 2023 TIME: 1:26 PM documented in this encounterSelect Medical Cleveland Clinic [facility], [facility]08-01-2023 NoteTr[facility]07-03-2023 Miscellaneous Notes* Telephone Encounter - Kristen Eugene [...] and advise. Kaye Donahue documented in this encounterSelect Medical Cleveland Clinic Rehabilitation Hospital, [facility]06-27-2023 NoteTrinity Health [facility]06-27-2023 History of Present illness Narrative* America Camejo, [...] Planned: 12 Planned Treatment Interventions: Therapeutic exercise (28265), Neuromuscular re- education (30443), Therapeutic activities (51754), Self-[place] [facility] facility management (72259), Patient/Family/Caregiver Education, Gait Training (19600) PLAN FOR NEXT VISIT: Pt. instructed to [...] 45 America Camejo PT documented in this encounterSelect Medical Cleveland Clinic Rehabilitation [facility], [facility]06-27-2023 Miscellaneous Notes* Telephone Encounter - Jeremiah Puckett LPN - 02/02/2023 11:35 AM EDT Spoke with pt's daughter and advised her of Kristen's message. She verbalizes understanding. She isrequesting to have referral faxed to [facility]. She is going to check with [...] welcomed to get a 2nd opinion from [place] [facility]. We do have pain management in [place] from [facility]. Dr. Cohn and dr. White are private practice options in [place] as well if they would like to [...] appointment would be all the way in [place] and that is too far for patient. Daughter said she is going to take patient to [facility] for her back instead. This staff [...] assist with scheduling. Call daughter Stefano at [phone]. Thank you. * Telephone Encounter - Jeremiah [...] options. Kristen Eugene PA-C documented in this encounterSelect Medical Cleveland Clinic Rehabilitation [facility], [facility]06-21-2023 NoteTrinity [facility]06-21-2023 NoteTrinity [facility]06-21-2023 History of Present illness Narrative* Kristen Eugene [...] AP/LAT/L5-S1 Kristen Eugene PA-C documented in this encounterSelect Medical Cleveland Clinic [facility]06-19-2023 Miscellaneous Notes* Telephone Encounter - Jeremiah Puckett [...] Quezada calling to verify lab order in [place] so granddaughter can knot picker cloth urine specimen supplies. Please file order and contact daughter when done. # [phone]. Vijaya Bishop, RN * Telephone Encounter - Jeremiah Puckett LPN - 01/25/2023 12:15 PM EDT Pt notified of Zhou Heiya message and instructions. Pt verbalizes understanding. Pt [...] Have those symptoms improved? documented in this encounterSelect Medical Cleveland Clinic [facility]06-15-2023 Miscellaneous Notes* Telephone Encounter - Angeline Robbins RN - 01/21/2023 9:39 AM EDT Patient's Grand Daughter called and notified that prescription has been sent to pharmacy. Angeline Robbins RN * Telephone Encounter - Carl Encarnacion MD - 01/21/2023 8:57 AM EDT Let grand daughter know antibiotic sent to [facility]. The following approved medication requests have been [...] advise, Angeline Robbins RN documented in this encounterSelect Medical Cleveland Clinic [facility], [facility]06-06-2023 History of Present illness Narrative* Barrera Daley APRN.ORTHOPEDIC NURSE - 01/12/2023 10:20 AM EDT Patient triaged at [facility]. Here today with 12/10 mid back pain after fall few days ago. Patient in wheel chair, not able to walk well d/t pain. I will refer to ER, concerns with age and severity of pain. documented in this encounterSelect Medical Cleveland Clinic [facility], [facility]03-31-2023 Miscellaneous Notes* Telephone Encounter - Judi Julio Temo Pss - 11/06/2022 9:18 AM EDT Pharmacy verified in [facility] Patient has been identified by name [...] Judi Julio Temo Pss documented in this encounterSelect Medical Cleveland Clinic [facility]02-02-2023 Miscellaneous Notes* Telephone Encounter - Carl Encarnacion [...] notify patient. Stephanie Estrada documented in this encounterSelect Medical Cleveland Clinic [facility]12-12-2022 Miscellaneous Notes* Telephone Encounter - Amanda Kendrick - 07/20/2022 10:38 AM EST Patient given results and verbalized understanding of instructions given. Amanda Kendrick * Telephone Encounter - Barrera Daley APRN.CNP - 07/20/2022 9:55 AM EST Please notify negative chest xray for pneumonia. Large hiatal hernia noted, no action needed. May stop atb per note. F/u as discussed during visit. documented in this encounterSelect Medical Cleveland Clinic Rehabilitation Hospital, Edwin [facility] History of Present illness Narrative* Monisha Donahue [...] 20, 2022 8:10 AM documented in this encounter[facility] History of Present illness Narrative* Isabel Older, TABLEMAN.ORTHOPEDIC NURSE - 07/19/2022 11:47 AM EST CC: Patient [...] plan. Isabel Roca APRN.KACI documented in this encounterSelect [facility]11-21-2022 Miscellaneous Notes* Telephone Encounter - Jeremiah Puckett [...] reduce fat in diet. documented in this encounterSelect [facility]11-18-2022 Instructions* Patient Instructions* Carl Encarnacion MD - 06/26/2022 11:03 AM EST Consider getting the shingrix vaccine for the prevention of shingles from a local pharmacy documented in this encounterSelect [facility]11-[facility]-2022 History of Present illness Narrative* Carl Encarnacion [...] Abs Lymph 1.00 - 4.00 k/uL 1.67 Barnwell% % 8.5 Abs Barnwell <0.87 k/uL 0.42 Eosin% % 2.6 Abs [...] Negative Negative Ketones, Urine Negative Negative Specific [place], Ur 1.005 - 1.030 1.006 Hemoglobin/Blood,Ur Negative [...] QUADRIVALENT HIGH DOSE AGE 65+: Given - Violin Memory-DanceOn COVID-19 BIVALENT BOOSTER VACCINE, AGE 12+ YR: [...] visit. Carl Encarnacion MD documented in this encounterSelect [facility]11-02-2022 Miscellaneous Notes* Telephone Encounter - Carl Encarnacion [...] and advise. Sherlyn Estrada documented in this encounterSelect [facility]10-28-2022 Miscellaneous Notes* Telephone Encounter - Jeremiah Puckett [...] Not applicable Please advise. Thank you. Lorena Nadeem documented in this encounterSelect [facility]10-17-2022 Miscellaneous Notes* Telephone Encounter - Carl Encarnacion MD - 05/25/2022 1:10 PM EDT Noted. * Telephone Encounter - Tamiko Ramirez LPN - 05/25/2022 12:53 PM EDT Gina from [employer] calling patient refused overnight pulse ox testing, patient said she returned her oxygen supplies and did not need to have done. documented in this encounterSelect [facility]10-05-2022 Miscellaneous Notes* Telephone Encounter - Jeremiah Puckett [...] - 05/13/2022 10:21 AM EDT [place] [facility] [place] provider wants pulse oximetry testing done on RA or with Oxygen? Noted patient is refusing to do testing and [place] [facility] [place] yet. Gina asking if provider would want them to try and do it without oxygen to make sure her levels are WNL if patient is agreeable. Yancy Wetzel RN documented in this encounterSelect [facility]09-29-2022 Miscellaneous Notes* Telephone Encounter - Lorena Silver - 05/07/2022 2:39 PM EDT Patient is refusing to schedule procedure at this time. She states she is returning her device. * Telephone Encounter - Keily Rico MA - 05/04/2022 5:02 PM EDT Faxed order to [facility] for Oximetry Nocturnal. Keily Rico MA Please schedule patient for Adult Oximetry with ambulation. (See PCP orders) Keily Rico MA * Telephone Encounter - Carl Encarnacion MD - 05/01/2022 6:08 PM EDT Oximetry with ambulation ordered. Please assist patient with getting set up. Nocturnal pulse ox order printed and ready to be faxed to [facility] * Telephone Encounter - Jeremiah Puckett LPN [...] will have her daughter take her to [facility] and she will hand them the oxygen equipment she has.Pt states she does not want to be mean but they are trying to pay for the cataract surgery and $8.00 is a lot to her. Please advise pt. Izzy Duarte LPN documented in this encounterSelect [facility]08-09-2022 Miscellaneous Notes* Telephone Encounter - Carl Encarnacion [...] Please fax order to [employer]- fax # [phone] documented in this encounterSelect [facility]08-05-2022 Miscellaneous Notes* Telephone Encounter - Kristen Eugene [...] patient. Stephanie Duarte Pss documented in this encounterSelect [facility]05-09-2022 Miscellaneous Notes* Telephone Encounter - Carl Encarnacion [...] 40 mg a day? documented in this encounterSelect [facility]05-06-2022 History of Present illness Narrative* Carl Encarnacion [...] yrs, sigmoid diverticulosis, internal hemorrhoids EGD W/O BRS SPECIMEN W/BX 02/14/09 hiatal hernia, esophagitis, gastritis [...] routine Carl Encarnacion MD documented in this encounterSelect [facility]04-22-2022 Miscellaneous Notes* Telephone Encounter - YAO Rowell [...] notify patient. Stefany Estrada documented in this encounterSelect [facility]04-11-2022 Miscellaneous Notes* Telephone Encounter - Carl Encarnacion [...] desk. Jeremiah Puckett LPN [place] encounterChrist[place] [address]-08-2022 Miscellaneous Notes* Telephone Encounter - Sruthi Pisano [...] can not leave home. Melanie works for [employer] sowould collect urine and process that through [employer]. If willing can order be placed [...] Patient has had frequent UTI's. Asking what PCP/MANAGER PUBLISHING would recommend. Please advise. documented in this encounterSelect [facility]11-10-2021 History of Past illness Narrative* Problem Noted Date Resolved Date Acute respiratory failure 06/18/20212021 Pain in joint, pelvic region and thigh 3 11/28/2012 Enthesopathy of hip region 10/27/201211/28 Acute gastritis without mention of hemorrhage 12/07/2014 Iron deficiency anemia, unspecified 02/14/2009 05/10/2018 documented as of this encounter (statuses as of 11/14/2021) [facility] History of Past illness Narrative* Problem Noted Date Resolved Date Acute respiratory failure 06/18/20212021 Pain in joint, pelvic region and thigh 3 11/28/2012 Enthesopathy of hip region 10/27/201211/28 Acute gastritis without mention of hemorrhage 12/07/2014 Iron deficiency anemia, unspecified 02/14/2009 05/10/2018 documented as of this encounter (statuses as of 11/17/2021) [facility] History of Past illness Narrative* Problem Noted Date Resolved Date Acute respiratory failure 06/18/20212021 Pain in joint, pelvic region and thigh 3 11/28/2012 Enthesopathy of hip region 10/27/201211/28 Acute gastritis without mention of hemorrhage 12/07/2014 Iron deficiency anemia, unspecified 02/14/2009 05/10/2018 documented as of this encounter (statuses as of 11/28/2021) [facility] History of Past illness Narrative* Problem Noted Date Resolved Date Acute respiratory failure 06/18/20212021 Pain in joint, pelvic region and thigh 3 11/28/2012 Enthesopathy of hip region 10/27/201211/28 Acute gastritis without mention of hemorrhage 12/07/2014 Iron deficiency anemia, unspecified 02/14/2009 05/10/2018 documented as of this encounter (statuses as of 12/13/2021) [facility] History of Past illness Narrative* Problem Noted Date Resolved Date Acute respiratory failure 06/18/20212021 Pain in joint, pelvic region and thigh 3 11/28/2012 Enthesopathy of hip region 10/27/201211/28 Acute gastritis without mention of hemorrhage 12/07/2014 Iron deficiency anemia, unspecified 02/14/2009 05/10/2018 documented as of this encounter (statuses as of 12/15/2021) [facility] History of Past illness Narrative* Problem Noted Date Resolved Date Acute respiratory failure 06/18/20212021 Pain in joint, pelvic region and thigh 3 11/28/2012 Enthesopathy of hip region 10/27/201211/28 Acute gastritis without mention of hemorrhage 12/07/2014 Iron deficiency anemia, unspecified 02/14/2009 05/10/2018 documented as of this encounter (statuses as of 03/13/2022) [facility] History of Past illness Narrative* Problem Noted Date Resolved Date Acute respiratory failure 06/18/20212021 Pain in joint, pelvic region and thigh 3 11/28/2012 Enthesopathy of hip region 10/27/201211/28 Acute gastritis without mention of hemorrhage 12/07/2014 Iron deficiency anemia, unspecified 02/14/2009 05/10/2018 documented as of this encounter (statuses as of 2022) [facility] History of Past illness Narrative* Problem Noted Date Resolved Date Acute respiratory failure 06/18/20212021 Pain in joint, pelvic region and thigh 3 11/28/2012 Enthesopathy of hip region 10/27/201211/28 Acute gastritis without mention of hemorrhage 12/07/2014 Iron deficiency anemia, unspecified 02/14/2009 05/10/2018 documented as of this encounter (statuses as of 05/07/2022) [facility] History of Past illness Narrative* Problem Noted Date Resolved Date Acute respiratory failure 06/18/20212021 Pain in joint, pelvic region and thigh 3 11/28/2012 Enthesopathy of hip region 10/27/201211/28 Acute gastritis without mention of hemorrhage 12/07/2014 Iron deficiency anemia, unspecified 02/14/2009 05/10/2018 documented as of this encounter (statuses as of 05/13/2022) [address]10-2021 History of Past illness Narrative* Problem Noted Date Resolved Date Acute respiratory failure 06/18/20212021 Pain in joint, pelvic region and thigh 3 11/28/2012 Enthesopathy of hip region 10/27/201211/28 Acute gastritis without mention of hemorrhage 12/07/2014 Iron deficiency anemia, unspecified 02/14/2009 05/10/2018 documented as of this encounter (statuses as of 05/25/2022) [facility] History of Past illness Narrative* Problem Noted Date Resolved Date Acute respiratory failure 06/18/20212021 Pain in joint, pelvic region and thigh 3 11/28/2012 Enthesopathy of hip region 10/27/201211/28 Acute gastritis without mention of hemorrhage 12/07/2014 Iron deficiency anemia, unspecified 02/14/2009 05/10/2018 documented as of this encounter (statuses as of 06/05/2022) [facility] History of Past illness Narrative* Problem Noted Date Resolved Date Acute respiratory failure 06/18/20212021 Pain in joint, pelvic region and thigh 3 11/28/2012 Enthesopathy of hip region 10/27/201211/28 Acute gastritis without mention of hemorrhage 12/07/2014 Iron deficiency anemia, unspecified 02/14/2009 05/10/2018 documented as of this encounter (statuses as of 06/10/2022) [facility] History of Past illness Narrative* Problem Noted Date Resolved Date Acute respiratory failure 06/18/20212021 Pain in joint, pelvic region and thigh 3 11/28/2012 Enthesopathy of hip region 10/27/201211/28 Acute gastritis without mention of hemorrhage 12/07/2014 Iron deficiency anemia, unspecified 02/14/2009 05/10/2018 documented as of this encounter (statuses as of 06/28/2022) [facility] History of Past illness Narrative* Problem Noted Date Resolved Date Acute respiratory failure 06/18/20212021 Pain in joint, pelvic region and thigh 3 11/28/2012 Enthesopathy of hip region 10/27/201211/28 Acute gastritis without mention of hemorrhage 12/07/2014 Iron deficiency anemia, unspecified 02/14/2009 05/10/2018 documented as of this encounter (statuses as of 06/29/2022) [facility] History of Past illness Narrative* Problem Noted Date Resolved Date Acute respiratory failure 06/18/20212021 Pain in joint, pelvic region and thigh 3 11/28/2012 Enthesopathy of hip region 10/27/201211/28 Acute gastritis without mention of hemorrhage 12/07/2014 Iron deficiency anemia, unspecified 02/14/2009 05/10/2018 documented as of this encounter (statuses as of 07/19/2022) [facility] History of Past illness Narrative* Problem Noted Date Resolved Date Acute respiratory failure 06/18/20212021 Pain in joint, pelvic region and thigh 3 11/28/2012 Enthesopathy of hip region 10/27/201211/28 Acute gastritis without mention of hemorrhage 12/07/2014 Iron deficiency anemia, unspecified 02/14/2009 05/10/2018 documented as of this encounter (statuses as of 07/20/2022) [facility] History of Past illness Narrative* Problem Noted Date Resolved Date Acute respiratory failure 06/18/20212021 Pain in joint, pelvic region and thigh 3 11/28/2012 Enthesopathy of hip region 10/27/201211/28 Acute gastritis without mention of hemorrhage 12/07/2014 Iron deficiency anemia, unspecified 02/14/2009 05/10/2018 documented as of this encounter (statuses as of 09/10/2022) [facility] History of Past illness Narrative* Problem Noted Date Resolved Date Acute respiratory failure 06/18/20212021 Pain in joint, pelvic region and thigh 3 11/28/2012 Enthesopathy of hip region 10/27/201211/28 Acute gastritis without mention of hemorrhage 12/07/2014 Iron deficiency anemia, unspecified 02/14/2009 05/10/2018 documented as of this encounter (statuses as of 11/06/2022) [facility] History of Past illness Narrative* Problem Noted Date Resolved Date Acute respiratory failure 06/18/20212021 Pain in joint, pelvic region and thigh 3 11/28/2012 Enthesopathy of hip region 10/27/201211/28 Acute gastritis without mention of hemorrhage 12/07/2014 Iron deficiency anemia, unspecified 02/14/2009 05/10/2018 documented as of this encounter (statuses as of 01/12/2023) [facility] History of Past illness Narrative* Problem Noted Date Resolved Date Acute respiratory failure 06/18/20212021 Pain in joint, pelvic region and thigh 3 11/28/2012 Enthesopathy of hip region 10/27/201211/28 Acute gastritis without mention of hemorrhage 12/07/2014 Iron deficiency anemia, unspecified 02/14/2009 05/10/2018 documented as of this encounter (statuses as of 01/21/2023) [facility] History of Past illness Narrative* Problem Noted Date Resolved Date Acute respiratory failure 06/18/20212021 Pain in joint, pelvic region and thigh 3 11/28/2012 Enthesopathy of hip region 10/27/201211/28 Acute gastritis without mention of hemorrhage 12/07/2014 Iron deficiency anemia, unspecified 02/14/2009 05/10/2018 documented as of this encounter (statuses as of 01/25/2023) [facility] History of Past illness Narrative* Problem Noted Date Resolved Date Acute respiratory failure 06/18/20212021 Pain in joint, pelvic region and thigh 3 11/28/2012 Enthesopathy of hip region 10/27/201211/28 Acute gastritis without mention of hemorrhage 12/07/2014 Iron deficiency anemia, unspecified 02/14/2009 05/10/2018 documented as of this encounter (statuses as of 01/27/2023) [facility] History of Past illness Narrative* Problem Noted Date Resolved Date Acute respiratory failure 06/18/20212021 Pain in joint, pelvic region and thigh 3 11/28/2012 Enthesopathy of hip region 10/27/201211/28 Acute gastritis without mention of hemorrhage 12/07/2014 Iron deficiency anemia, unspecified 02/14/2009 05/10/2018 documented as of this encounter (statuses as of 02/02/2023) [facility] History of Past illness Narrative* Problem Noted Date Resolved Date Acute respiratory failure 06/18/20212021 Pain in joint, pelvic region and thigh 3 11/28/2012 Enthesopathy of hip region 10/27/201211/28 Acute gastritis without mention of hemorrhage 12/07/2014 Iron deficiency anemia, unspecified 02/14/2009 05/10/2018 documented as of this encounter (statuses as of 02/03/2023) [facility] History of Past illness Narrative* Problem Noted Date Resolved Date Acute respiratory failure 06/18/20212021 Pain in joint, pelvic region and thigh 3 11/28/2012 Enthesopathy of hip region 10/27/201211/28 Acute gastritis without mention of hemorrhage 12/07/2014 Iron deficiency anemia, unspecified 02/14/2009 05/10/2018 documented as of this encounter (statuses as of 02/08/2023) [facility] History of Past illness Narrative* Problem Noted Date Diagnosed Date Resolved Date Acute respiratory failure 06/18/2021 Pain in joint, pelvic region and thigh 10/27/2012 11/28/2012 Enthesopathy of hip region 10/27/2012 0 11/28/2012 Acute gastritis without mention of hemorrhage 02/15/20 09 12/07/2014 Iron deficiency anemia, unspecified 02/14/2009 05/10/2018 documented as of this encounter (statuses as of 2023) [facility] History of Past illness Narrative* Problem Noted Date Diagnosed Date Resolved Date Acute respiratory failure 06/18/2021 Pain in joint, pelvic region and thigh 10/27/2012 11/28/2012 Enthesopathy of hip region 10/27/2012 0 11/28/2012 Acute gastritis without mention of hemorrhage 02/15/20 09 12/07/2014 Iron deficiency anemia, unspecified 02/14/2009 05/10/2018 documented as of this encounter (statuses as of 03/23/2023) [facility] History of Past illness Narrative* Problem Noted Date Diagnosed Date Resolved Date Acute respiratory failure 06/18/2021 Pain in joint, pelvic region and thigh 10/27/2012 11/28/2012 Enthesopathy of hip region 10/27/2012 0 11/28/2012 Acute gastritis without mention of hemorrhage 02/15/20 09 12/07/2014 Iron deficiency anemia, unspecified 02/14/2009 05/10/2018 documented as of this encounter (statuses as of 03/23/2023) [facility] History of Past illness Narrative* Problem Noted Date Diagnosed Date Resolved Date Acute respiratory failure 06/18/2021 Pain in joint, pelvic region and thigh 10/27/2012 11/28/2012 Enthesopathy of hip region 10/27/2012 0 11/28/2012 Acute gastritis without mention of hemorrhage 02/15/20 09 12/07/2014 Iron deficiency anemia, unspecified 02/14/2009 05/10/2018 documented as of this encounter (statuses as of 03/23/2023) [facility] History of Past illness Narrative* Problem Noted Date Diagnosed Date Resolved Date Acute respiratory failure 06/18/2021 Pain in joint, pelvic region and thigh 10/27/2012 11/28/2012 Enthesopathy of hip region 10/27/2012 0 11/28/2012 Acute gastritis without mention of hemorrhage 02/15/20 09 12/07/2014 Iron deficiency anemia, unspecified 02/14/2009 05/10/2018 documented as of this encounter (statuses as of 03/25/2023) [address]10-2021 History of Past illness Narrative* Problem Noted Date Diagnosed Date Resolved Date Acute respiratory failure 06/18/2021 Pain in joint, pelvic region and thigh 10/27/2012 11/28/2012 Enthesopathy of hip region 10/27/2012 0 11/28/2012 Acute gastritis without mention of hemorrhage 02/15/20 09 12/07/2014 Iron deficiency anemia, unspecified 02/14/2009 05/10/2018 documented as of this encounter (statuses as of 03/29/2023) [facility] of Past illness Narrative* Problem Noted Date Diagnosed Date Resolved Date Acute respiratory failure 06/18/2021 Pain in joint, pelvic region and thigh 10/27/2012 11/28/2012 Enthesopathy of hip region 10/27/2012 0 11/28/2012 Acute gastritis without mention of hemorrhage 02/15/20 09 12/07/2014 Iron deficiency anemia, unspecified 02/14/2009 05/10/2018 documented as of this encounter (statuses as of 04/07/2023) [facility] History of Past illness Narrative* Problem Noted Date Diagnosed Date Resolved Date Acute respiratory failure 06/18/2021 Pain in joint, pelvic region and thigh 10/27/2012 11/28/2012 Enthesopathy of hip region 10/27/2012 0 11/28/2012 Acute gastritis without mention of hemorrhage 02/15/20 09 12/07/2014 Iron deficiency anemia, unspecified 02/14/2009 05/10/2018 documented as of this encounter (statuses as of 04/07/2023) [facility] of Past illness Narrative* Problem Noted Date Diagnosed Date Resolved Date Acute respiratory failure 06/18/2021 Pain in joint, pelvic region and thigh 10/27/2012 11/28/2012 Enthesopathy of hip region 10/27/2012 0 11/28/2012 Acute gastritis without mention of hemorrhage 02/15/20 09 12/07/2014 Iron deficiency anemia, unspecified 02/14/2009 05/10/2018 documented as of this encounter (statuses as of 04/12/2023) [facility] History of Past illness Narrative* Problem Noted Date Diagnosed Date Resolved Date Acute respiratory failure 06/18/2021 Pain in joint, pelvic region and thigh 10/27/2012 11/28/2012 Enthesopathy of hip region 10/27/2012 0 11/28/2012 Acute gastritis without mention of hemorrhage 02/15/20 09 12/07/2014 Iron deficiency anemia, unspecified 02/14/2009 05/10/2018 documented as of this encounter (statuses as of 04/23/2023) [facility] of Past illness Narrative* Problem Noted Date Diagnosed Date Resolved Date Acute respiratory failure 06/18/2021 Pain in joint, pelvic region and thigh 10/27/2012 11/28/2012 Enthesopathy of hip region 10/27/2012 0 11/28/2012 Acute gastritis without mention of hemorrhage 02/15/20 09 12/07/2014 Iron deficiency anemia, unspecified 02/14/2009 05/10/2018 documented as of this encounter (statuses as of 05/02/2023) [facility] History of Past illness Narrative* Problem Noted Date Diagnosed Date Resolved Date Acute respiratory failure 06/18/2021 Pain in joint, pelvic region and thigh 10/27/2012 11/28/2012 Enthesopathy of hip region 10/27/2012 0 11/28/2012 Acute gastritis without mention of hemorrhage 02/15/20 09 12/07/2014 Iron deficiency anemia, unspecified 02/14/2009 05/10/2018 documented as of this encounter (statuses as of 05/04/2023) [facility] of Past illness Narrative* Problem Noted Date Diagnosed Date Resolved Date Acute respiratory failure 06/18/2021 Pain in joint, pelvic region and thigh 10/27/2012 11/28/2012 Enthesopathy of hip region 10/27/2012 0 11/28/2012 Acute gastritis without mention of hemorrhage 02/15/20 09 12/07/2014 Iron deficiency anemia, unspecified 02/14/2009 05/10/2018 documented as of this encounter (statuses as of 05/15/2023) [facility] History of Past illness Narrative* Problem Noted Date Diagnosed Date Resolved Date Acute respiratory failure 06/18/2021 Pain in joint, pelvic region and thigh 10/27/2012 11/28/2012 Enthesopathy of hip region 10/27/2012 0 11/28/2012 Acute gastritis without mention of hemorrhage 02/15/20 09 12/07/2014 Iron deficiency anemia, unspecified 02/14/2009 05/10/2018 documented as of this encounter (statuses as of 05/31/2023) [facility] of Past illness Narrative* Problem Noted Date Diagnosed Date Resolved Date Acute respiratory failure 06/18/2021 Pain in joint, pelvic region and thigh 10/27/2012 11/28/2012 Enthesopathy of hip region 10/27/2012 0 11/28/2012 Acute gastritis without mention of hemorrhage 02/15/20 09 12/07/2014 Iron deficiency anemia, unspecified 02/14/2009 05/10/2018 documented as of this encounter (statuses as of 06/03/2023) [facility]10[facility]2021 History of Past illness Narrative* Problem Noted Date Diagnosed Date Resolved Date Acute respiratory failure 06/18/2021 Pain in joint, pelvic region and thigh 10/27/2012 11/28/2012 Enthesopathy of hip region 10/27/2012 0 11/28/2012 Acute gastritis without mention of hemorrhage 02/15/20 09 12/07/2014 Iron deficiency anemia, unspecified 02/14/2009 05/10/2018 documented as of this encounter (statuses as of 06/04/2023) [facility]10[facility]2021 History of Past illness Narrative* Problem Noted Date Diagnosed Date Resolved Date Acute respiratory failure 06/18/2021 Pain in joint, pelvic region and thigh 10/27/2012 11/28/2012 Enthesopathy of hip region 10/27/2012 0 11/28/2012 Acute gastritis without mention of hemorrhage 02/15/20 09 12/07/2014 Iron deficiency anemia, unspecified 02/14/2009 05/10/2018 documented as of this encounter (statuses as of 06/04/2023) [facility]2021 History of Past illness Narrative* Problem Noted Date Diagnosed Date Resolved Date Acute respiratory failure 06/18/2021 Pain in joint, pelvic region and thigh 10/27/2012 11/28/2012 Enthesopathy of hip region 10/27/2012 0 11/28/2012 Acute gastritis without mention of hemorrhage 02/15/20 09 12/07/2014 Iron deficiency anemia, unspecified 02/14/2009 05/10/2018 documented as of this encounter (statuses as of 06/08/2023) [facility]2021 History of Past illness Narrative* Problem Noted Date Diagnosed Date Resolved Date Acute respiratory failure 06/18/2021 Pain in joint, pelvic region and thigh 10/27/2012 11/28/2012 Enthesopathy of hip region 10/27/2012 0 11/28/2012 Acute gastritis without mention of hemorrhage 02/15/20 09 12/07/2014 Iron deficiency anemia, unspecified 02/14/2009 05/10/2018 documented as of this encounter (statuses as of 06/08/2023) [facility]2021 History of Past illness Narrative* Problem Noted Date Diagnosed Date Resolved Date Acute respiratory failure 06/18/2021 Pain in joint, pelvic region and thigh 10/27/2012 11/28/2012 Enthesopathy of hip region 10/27/2012 0 11/28/2012 Acute gastritis without mention of hemorrhage 02/15/20 09 12/07/2014 Iron deficiency anemia, unspecified 02/14/2009 05/10/2018 documented as of this encounter (statuses as of 06/08/2023) [facility]2021 History of Past illness Narrative* Problem Noted Date Diagnosed Date Resolved Date Acute respiratory failure 06/18/2021 Pain in joint, pelvic region and thigh 10/27/2012 11/28/2012 Enthesopathy of hip region 10/27/2012 0 11/28/2012 Acute gastritis without mention of hemorrhage 02/15/20 09 12/07/2014 Iron deficiency anemia, unspecified 02/14/2009 05/10/2018 documented as of this encounter (statuses as of 06/11/2023) [facility] History of Past illness Narrative* Problem Noted Date Diagnosed Date Resolved Date Acute respiratory failure 06/18/2021 Pain in joint, pelvic region and thigh 10/27/2012 11/28/2012 Enthesopathy of hip region 10/27/2012 0 11/28/2012 Acute gastritis without mention of hemorrhage 02/15/20 09 12/07/2014 Iron deficiency anemia, unspecified 02/14/2009 05/10/2018 documented as of this encounter (statuses as of 06/12/2023) [facility]2021 History of Past illness Narrative* Problem Noted Date Diagnosed Date Resolved Date Acute respiratory failure 06/18/2021 Pain in joint, pelvic region and thigh 10/27/2012 11/28/2012 Enthesopathy of hip region 10/27/2012 0 11/28/2012 Acute gastritis without mention of hemorrhage 02/15/20 09 12/07/2014 Iron deficiency anemia, unspecified 02/14/2009 05/10/2018 documented as of this encounter (statuses as of 06/13/2023) [facility]21 History of Past illness Narrative* Problem Noted Date Diagnosed Date Resolved Date Acute respiratory failure 06/18/2021 Pain in joint, pelvic region and thigh 10/27/2012 11/28/2012 Enthesopathy of hip region 10/27/2012 0 11/28/2012 Acute gastritis without mention of hemorrhage 02/15/20 09 12/07/2014 Iron deficiency anemia, unspecified 02/14/2009 05/10/2018 documented as of this encounter (statuses as of 06/13/2023) [facility]2021 History of Past illness Narrative* Problem Noted Date Diagnosed Date Resolved Date Acute respiratory failure 06/18/2021 Pain in joint, pelvic region and thigh 10/27/2012 11/28/2012 Enthesopathy of hip region 10/27/2012 0 11/28/2012 Acute gastritis without mention of hemorrhage 02/15/20 09 12/07/2014 Iron deficiency anemia, unspecified 02/14/2009 05/10/2018 documented as of this encounter (statuses as of 06/13/2023) [facility]2021 History of Past illness Narrative* Problem Noted Date Diagnosed Date Resolved Date Acute respiratory failure 06/18/2021 Pain in joint, pelvic region and thigh 10/27/2012 11/28/2012 Enthesopathy of hip region 10/27/2012 0 11/28/2012 Acute gastritis without mention of hemorrhage 02/15/20 09 12/07/2014 Iron deficiency anemia, unspecified 02/14/2009 05/10/2018 documented as of this encounter (statuses as of 06/17/2023) [facility]2021 History of Past illness Narrative* Problem Noted Date Diagnosed Date Resolved Date Acute respiratory failure 06/18/2021 Pain in joint, pelvic region and thigh 10/27/2012 11/28/2012 Enthesopathy of hip region 10/27/2012 0 11/28/2012 Acute gastritis without mention of hemorrhage 02/15/20 09 12/07/2014 Iron deficiency anemia, unspecified 02/14/2009 05/10/2018 documented as of this encounter (statuses as of 07/07/2023) [facility]2021 History of Past illness Narrative* Problem Noted Date Diagnosed Date Resolved Date Acute respiratory failure 06/18/2021 Pain in joint, pelvic region and thigh 10/27/2012 11/28/2012 Enthesopathy of hip region 10/27/2012 0 11/28/2012 Acute gastritis without mention of hemorrhage 02/15/20 09 12/07/2014 Iron deficiency anemia, unspecified 02/14/2009 05/10/2018 documented as of this encounter (statuses as of 07/13/2023) [facility]21 History of Past illness Narrative* Problem Noted Date Diagnosed Date Resolved Date Acute respiratory failure 06/18/2021 Pain in joint, pelvic region and thigh 10/27/2012 11/28/2012 Enthesopathy of hip region 10/27/2012 0 11/28/2012 Acute gastritis without mention of hemorrhage 02/15/20 09 12/07/2014 Iron deficiency anemia, unspecified 02/14/2009 05/10/2018 documented as of this encounter (statuses as of 07/13/2023) [facility]21 History of Past illness Narrative* Problem Noted Date Diagnosed Date Resolved Date Acute respiratory failure 06/18/2021 Pain in joint, pelvic region and thigh 10/27/2012 11/28/2012 Enthesopathy of hip region 10/27/2012 0 11/28/2012 Acute gastritis without mention of hemorrhage 02/15/20 09 12/07/2014 Iron deficiency anemia, unspecified 02/14/2009 05/10/2018 documented as of this encounter (statuses as of 07/17/2023) [facility]2021 History of Past illness Narrative* Problem Noted Date Diagnosed Date Resolved Date Acute respiratory failure 06/18/2021 Pain in joint, pelvic region and thigh 10/27/2012 11/28/2012 Enthesopathy of hip region 10/27/2012 0 11/28/2012 Acute gastritis without mention of hemorrhage 02/15/20 09 12/07/2014 Iron deficiency anemia, unspecified 02/14/2009 05/10/2018 documented as of this encounter (statuses as of 07/27/2023) [facility]21 History of Past illness Narrative* Problem Noted [...] of this encounter (statuses as of 10/07/2023) [facility] History of Past illness Narrative* Problem Noted [...] of this encounter (statuses as of 11/25/2023) [facility] Appointment Date:09/16/2023 02:45:00 PM Scheduled Provider: Location:[facility] Appointment Type:CV OV [facility] Evaluation note* Diagnosis Frequent UTI- Primary Urinary tract infection, site not specified Confusion Unspecified psychosis documented in this encounter [facility] note* Diagnosis Essential hypertension- Primary Unspecified essential hypertension Mixed hyperlipidemia Acquired hypothyroidism Unspecified hypothyroidism History of pulmonary embolism Personal history of pulmonary embolism Gastroesophageal reflux disease without esophagitis Esophageal reflux Osteoarthritis of multiple joints, unspecified osteoarthritis type Medication management Encounter for long-term (current) use of other medications documented in this encounter [facility] note* Diagnosis Osteoarthritis of multiple joints, unspecified osteoarthritis type documented in this encounter [facility] note* Diagnosis Hypoxia- Primary Hypoxemia documented in this encounter [facility] note* Diagnosis Osteoarthritis of multiple joints, unspecified osteoarthritis type documented in this encounter [facility] note* Diagnosis Essential hypertension- Primary Unspecified essential hypertension Mixed hyperlipidemia Gastroesophageal reflux disease without esophagitis Esophageal reflux Acquired hypothyroidism Unspecified hypothyroidism Aortic stenosis, moderate Aortic valve disorders Osteoarthritis of multiple joints, unspecified osteoarthritis type Encounter for immunization Need for other specified prophylactic vaccination against single bacterial disease Advance directive discussed with patient Other specified counseling documented in this encounter [facility] note* Diagnosis Acute cough- Primary Wheezing documented in this encounter [facility] note* Diagnosis Osteoarthritis of multiple joints, unspecified osteoarthritis type documented in this encounter [facility] noteNo assessment information availableWWilson [facility] Work Phone: Evaluation note* Diagnosis Severe back pain- Primary Backache, unspecified Fall, initial encounter documented in this encounter [facility] note* Diagnosis Urinary frequency- Primary documented in this encounter [facility] note* Diagnosis Sciatica, right side- Primary Fall, subsequent encounter documented in this encounter [facility] note* Diagnosis Chronic low back pain with sciatica, sciatica laterality unspecified, unspecified back pain laterality- Primary Compression fracture of T11 vertebra, initial encounter ([facility]) documented in this encounter [facility] note* Diagnosis Sciatica, right side- Primary Falls, subsequent encounter documented in this encounter [facility] note* Diagnosis Ovarian mass- Primary Unspecified noninflammatory disorder of ovary, fallopian tube, and broad ligament [facility]* Diagnosis Preop examination- Primary Preoperative examination, unspecified Ovarian mass Unspecified noninflammatory disorder of ovary, fallopian tube, and broad ligament Preop examination Preoperative examination, unspecified [facility]* Diagnosis Ovarian mass Unspecified noninflammatory disorder of ovary, fallopian tube, and broad ligament Preop examination Preoperative examination, unspecified documented in this encounter [facility] note* Diagnosis Ovarian mass Unspecified noninflammatory disorder of ovary, fallopian tube, and broad ligament Preop examination Preoperative examination, unspecified [facility]* Diagnosis Pre-op evaluation- Primary Preoperative examination, unspecified Acquired hypothyroidism Unspecified hypothyroidism Essential hypertension Unspecified essential hypertension Gastroesophageal reflux disease without esophagitis Esophageal reflux History of pulmonary embolism Personal history of pulmonary embolism Aortic stenosis, moderate Aortic valve disorders documented in this encounter [facility] note* Diagnosis 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 Malignant neoplasm of ovary Post-operative state Other postprocedural status [facility]* Diagnosis 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, NEC [facility]* Diagnosis 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 Malignant neoplasm of ovary [facility]* Diagnosis Encounter for education- Primary Counseling NOS documented in this encounter [facility] note* Diagnosis 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 Malignant neoplasm of ovary [facility]* Diagnosis Osteoarthritis of multiple joints, unspecified osteoarthritis type [facility]* Diagnosis 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 Malignant neoplasm of ovary [facility]* Diagnosis Osteoarthritis of multiple joints, unspecified osteoarthritis type [facility]* Diagnosis Pelvic mass Abdominal or pelvic swelling, mass or lump, unspecified site [facility]* Diagnosis Sciatica, right side Fall, subsequent encounter [facility]* Diagnosis 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 neoplasm of ovary documented in this encounter [facility] note* Diagnosis Osteoarthritis of multiple joints, unspecified osteoarthritis type documented in this encounter [facility] note* Diagnosis 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 Work Phone: Evaluation note* Diagnosis Osteoarthritis of multiple joints, unspecified osteoarthritis type documented in this encounter [facility] note* Diagnosis Recurrent UTI (urinary tract infection)- Primary Urinary tract infection, site not specified Essential hypertension Unspecified essential hypertension Malignant neoplasm of ovary, unspecified laterality (HCC) Aortic stenosis, moderate Aortic valve disorders documented in this encounter [facility] note* Diagnosis Recurrent UTI (urinary tract infection)- Primary Urinary tract infection, site not specified documented in this encounter [facility] note* Diagnosis Essential hypertension, malignant- Primary documented in this encounter [facility] note* Diagnosis Recurrent UTI (urinary tract infection)- Primary Urinary tract infection, site not specified documented in this encounter [facility] note* Diagnosis Takotsubo cardiomyopathy- Primary Takotsubo syndrome documented in this encounter [facility] note* Diagnosis Acute cough Wheezing Pre-op evaluation- Primary Preoperative examination, unspecified Acquired hypothyroidism Unspecified hypothyroidism Essential hypertension Unspecified essential hypertension Gastroesophageal reflux disease without esophagitis Esophageal reflux History of pulmonary embolism Personal history of pulmonary embolism Aortic stenosis, moderate Aortic valve disorders documented in this encounter [facility] course Narrative No data available for this section [facility] Hospital Discharge instructions No data available for this section [facility] Progress note No data available for this section [facility] Reason for referral (narrative)* Outpatient Procedure (Routine) - Pending Review Specialty Diagnoses / Procedures Referred By Contac t Referred To Contact [facility] Diagnoses Hypoxia Procedures OXIMETRY WITH AMBULATION NONINVASIVE EAR/PULSE OXIMETRY MULTIPLE DETER Carl Encarnacion MD [address] [place] [address] [facility] [place] [address] [place] [address] Referral ID Status Reason Start Date Expiration Date Visits Requested Visits Authorized [id number] Pending Review Auto-Generat ed Referral 05/01/2022 05/31/2023 1 1 [facility] for referral (narrative)* Diagnostic Procedure Only (Routine) - Closed Specialty Diagnoses / Procedures Referred By Contac t Referred To Contact XR IMAGING Diagnoses Sciatica, right side Fall, subsequent encounter Procedures XR LUMBAR GENERAL 3V AP/LAT/L5-S1 RADEX SPINE LUMBOSACRAL 2/3 VIEWS Kristen Eugene PA-C [address] [place] [address] Xr Imaging Referral ID Status Reason Start Date Expiration Date V isits Requested Visits Authorized [id number] Closed Auto-Generate d Referral 01/27/2023 02/26/2024 1 1 * Physical Therapy (Routine) - Authorized Specialty Diagnoses / Procedures Referred By Contac t Referred To Contact [facility] Diagnoses Sciatica, right side Fall, subsequent encounter Procedures CONSULT TO PHYSICAL THERAPY PHYSICAL THERAPY EVALUATION HIGH COMPLEX 45 MINS THERAPEUTIC EXERCISES RE, EA 15 MIN. Kristen Eugene PA-C [address] [place] [address] [facility] [place] [id number] [place] [address] Referral ID Status Reason Start Date Expiration Date Visits Requested Visits Authorized [id number] Authorized Auto-Generat ed Referral 08/09/2022 08/08/2023 20 20 [facility] for referral (narrative)* Outpatient Procedure (Urgent) - Authorized Specialty Diagnoses / Procedures Referred By Contac t Referred To Contact [facility] Diagnoses Preop examination Procedures ECHO ECHO TTHRC R-T 2D W/WOM-MODE COMPL SPEC&[place] [address] [place] [address] [address] Referral ID Status Reason Start Date Expiration Date Visits Requested Visits Authorized [id number] Authorized Auto-Generat ed Referral 03/22/2023 03/21/2024 1 1 [facility] for referral (narrative)* Outpatient Procedure (Routine) - Closed Specialty Diagnoses / Procedures Referred By Contac t Referred To Contact [facility] Diagnoses Ovarian mass Preop examination Procedures ECG COMPLETE ECG ROUTINE ECG W/LEAST 12 LDS W/I&R Annmarie Mendoza APRN.ORTHOPEDIC NURSE [address] [place] [address] [place] [address] Referral ID Status Reason Start Date Expiration Date V isits Requested Visits Authorized [id number] Closed Auto-Generate d Referral 03/22/2023 03/21/2024 1 1 [facility] for referral (narrative)* Diagnostic Procedure Only (Routine) - Closed Specialty Diagnoses / Procedures Referred By Contac t Referred To Contact XR IMAGING Diagnoses Sciatica, right side Fall, subsequent encounter Procedures XR LUMBAR GENERAL 3V AP/LAT/L5-S1 RADEX SPINE LUMBOSACRAL 2/3 VIEWS Kristen Eugene PA-C [address] [place] [address] [place] [id number] Referral ID Status Reason Start Date Expiration Date V isits Requested Visits Authorized [id number] Closed Auto-Generate d Referral 01/27/2023 02/26/2024 1 1 [facility] for referral (narrative)No reason for referral information availableWWilson [facility] Hospital Work Phone: Reason for visit Narrative* Outpatient Procedure (Routine) - Closed Specialty Diagnoses / Procedures Referred By Contac t Referred To Contact [facility] Diagnoses Ovarian mass Preop examination Procedures ECG COMPLETE ECG ROUTINE ECG W/LEAST 12 LDS W/I&R Annmarie Mendoza, [place].ORTHOPEDIC NURSE [address] [place] [address] [facility] [place] [address] [place] [address] Referral ID Status Reason Start Date Expiration Date V isits Requested Visits Authorized [id number] Closed Auto-Generate d Referral 03/22/2023 03/21/2024 1 1 [facility] for visit Narrative* Diagnostic Procedure Only (Routine) - Closed Specialty Diagnoses / Procedures Referred By Vondaac t Referred To Contact XR IMAGING Diagnoses Sciatica, right side Fall, subsequent encounter Procedures XR LUMBAR GENERAL 3V AP/LAT/L5-S1 RADEX SPINE LUMBOSACRAL 2/3 VIEWS Kristen Eugene PA-C [address] [place] [address] [place] [id number] Referral ID Status Reason Start Date Expiration Date V isits Requested Visits Authorized [id number] Closed Auto-Generate d Referral 01/27/2023 02/26/2024 1 1 [facility] Chief Complaint and Reason for Visit Chief [...] MONTHLY EXAM August 11, 2024 5: 27pm [facility] September 03, 2024 1:00pm MONTHLY EXAM September 12, 2024 8 :04pm [facility] September 14, 2024 5:00am LABWORK September 18, 2024 5:00am LABWORK September 25, 2024 7:00am NEW CONCERN September 27, 2024 2:16pm [facility] September 27 2:30pm LABWORK October 16, 2024 5:0 0am Chief Complaint Admit Date LABWORK August 07, 2024 5:00am MONTHLY EXAM August 11, 2024 5: 27pm [facility] September 03, 2024 1:00pm MONTHLY EXAM September 12, 2024 8 :04pm [facility] September 14, 2024 5:00am LABWORK September 18, 2024 5:00am LABWORK September 25, 2024 7:00am NEW CONCERN September 27, 2024 2:16pm [facility] September 27 2:30pm LABWORK October 16, 2024 5:0 0am MONTHLY EXAM October 19, 2024 9:2 9am LABWORK October 30, 2024 5:0 0am Chief Complaint Admit Date LABWORK August 07, 2024 5:00am MONTHLY EXAM August 11, 2024 5: 27pm [facility] September 03, 2024 1:00pm MONTHLY EXAM September 12, 2024 8 :04pm [facility] September 14, 2024 5:00am LABWORK September 18, 2024 5:00am LABWORK September 25, 2024 7:00am NEW CONCERN September 27, 2024 2:16pm [facility] September 27 2:30pm LABWORK October 16, 2024 5:0 0am MONTHLY EXAM October 19, 2024 9:2 9am LABWORK October 30, 2024 5:0 0am [facility] November 02, 2024 5 :00am Chief Complaint Admit Date LABWORK October 30, 2024 5:0 0am [facility] November 02, 2024 5 :00am [...] Monthly Exam March 01, 2025 10:4 2am [facility] March 05, 2025 4: 00am [...] Monthly Exam March 01, 2025 10:4 2am [facility] March 05, 2025 4: 00am MONTHLY EXAM March 20, 2025 7: 55pm Chief Complaint Admit Date LABWORK January 18, 2025 5:00 am LABWORK January 22, 2025 5:00 am LABOWRK February 19, 2025 5:00 am Monthly Exam March 01, 2025 10:4 2am [facility] March 05, 2025 4: 00am MONTHLY EXAM March 20, 2025 7: 55pm [facility] April 16 5:00am Chief Complaint Admit Date LABOWRK February 19, 2025 5:00 am Monthly Exam March 01, 2025 10:4 2am [facility] March 05, 2025 4: 00am MONTHLY EXAM March 20, 2025 7: 55pm [facility] April 16 5:00am MONTHLY EXAM April 20, 2025 4:03pm [facility] May 28, 2025 4:03am Advance Directives No Advanced Directives Records Found Advance Directive Response Recorded Date/ Time Living Will No January 12, 2023 1 0:27am Power of Metaphysics Teacher No January 12, 2023 10:27am Name of Medical Power of Metaphysics Teacher ? January 12, 2023 10:26am Advance Directive Response Recorded Date/ Time Living Will No November 23, 2023 8:14am Power of Metaphysics Teacher No November 22 8:14am Advance Directive Response Recorded Date/ Time Living Will No November 23, 2023 12:55pm Power of Metaphysics Teacher No November 22 12:55pm Reason for Referral Specialty Diagnoses / Procedures Referred By Bella cobian Referred To Contact Orthopedics Diagnoses Chronic low back pain with sciatica, sciatica laterality unspecified, unspecified back pain laterality Compression fracture of T11 vertebra, initial encounter ([facility]) Procedures CONSULT TO ORTHOPAEDICS OFFICE/OUTPATIENT [facility] 60-74 MINUTES Kristen Eugene PA-C [address] [place] [address] Referral ID Status Reason Start Date Expiration Date Visits Requested Visits Authorized [id number] Pending Review PCP Requested Referral 02/02/2023 02/02/2024 1 1 Specialty Diagnoses / Procedures Referred By Contac t Referred To Contact Pain Management Diagnoses Chronic low back pain with sciatica, sciatica laterality unspecified, unspecified back pain laterality Compression fracture of T11 vertebra, initial encounter (HCC) Procedures CONSULT TO PAIN MGT OFFICE/OUTPATIENT [facility] 60-74 MINUTES Kristen Eugene PA-C [address] [place] [address] Referral ID Status Reason Start Date Expiration Date Visits Requested Visits Authorized [id number] Pending Review PCP Requested Referral 02/02/2023 02/02/2024 1 1 Specialty Diagnoses / Procedures Referred By Contac t Referred To Contact [facility] Diagnoses Sciatica, right side Falls, subsequent encounter Procedures PT REHAB FOLLOW UP ORDER THERAPEUTIC EXERCISES RE, EA 15 MIN. America Camejo, PT [facility] [place] [address] [place] [address] Referral ID Status Reason Start Date Expiration Date Visits Requested Visits Authorized [id number] Pending Review PCP Requested Referral Auto-Generate d Referral 02/02/2023 05/03/2023 1 1 Specialty Diagnoses / Procedures Referred By Contac t Referred To Contact Diagnoses Ovarian mass Procedures CONSULT TO GYNECOLOGIC/ONCOLOGY OFFICE/OUTPATIENT [facility] 60-74 MINUTES Ely Rico MD [address] [place] [id number] Referral ID Status Reason Start Date Expiration Date Visits Requested Visits Authorized [id number] Pending Review PCP Requested Referral Auto-Generate d Referral 03/16/2023 03/15/2024 1 1 Specialty Diagnoses / Procedures Referred By Contac t Referred To Contact Diagnoses 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 (HCC) Procedures CONSULT TO HEMATOLOGY/ONCOLOGY OFFICE/OUTPATIENT [facility] 60-74 MINUTES Annmarie Mendoza, REBECCA.ORTHOPEDIC NURSE [address] [place] [address] Wilmar Forbes DO [address] [place] [address] Referral ID Status Reason Start Date Expiration Date Visits Requested Visits Authorized [id number] Pending Review PCP Requested Referral 05/03/2023 05/02/2024 1 1 Specialty Diagnoses / Procedures Referred By Contac t Referred To Contact CT IMAGING Diagnoses Pelvic mass Procedures CT ABD/PEL W IVCON CT ABD & PELVIS W/CONTRAST Carl Encarnacion MD [address] [place] [address] [place] [address] Referral ID Status Reason Start Date Expiration Date V isits Requested Visits Authorized [id number] Closed Auto-Generate d Referral 02/26/2023 03/27/2024 1 1 Specialty Diagnoses / Procedures Referred By Contac t Referred To Contact Diagnoses Osteoarthritis of multiple joints, unspecified osteoarthritis type Kristen Eugene PA-C [address] [place] [address] Referral ID Status Reason Start Date Expiration Date Visits Re quested Visits Authorized [id number] Closed 1 1 Summary Purpose Family History [...] or prosecute any alcohol or drug abuse patient.[facility] ShawIn the event this information is protected by the Federal Confidentiality of Alcohol and Drug Abuse Patient Records regulations: The Federal rules restrict any use of the information to criminally investigate or prosecute any alcohol or drug abuse patient.[facility] ShawIn the event this information is protected by the Federal Confidentiality of Alcohol and Drug Abuse Patient Records regulations: The Federal rules restrict any use of the information to criminally investigate or prosecute any alcohol or drug abuse patient.[facility] ShawIn the event this information is protected by the Federal Confidentiality of Alcohol and Drug Abuse Patient Records regulations: The Federal rules restrict any use of the information to criminally investigate or prosecute any alcohol or drug abuse patient.[facility] ShawIn the event this information is protected by the Federal Confidentiality of Alcohol and Drug Abuse Patient Records regulations: The Federal rules restrict any use of the information to criminally investigate or prosecute any alcohol or drug abuse patient.[facility] ShawIn the event this information is protected by the Federal Confidentiality of Alcohol and Drug Abuse Patient Records regulations: The Federal rules restrict any use of the information to criminally investigate or prosecute any alcohol or drug abuse patient.[facility] ShawIn the event this information is protected by the Federal Confidentiality of Alcohol and Drug Abuse Patient Records regulations: The Federal rules restrict any use of the information to criminally investigate or prosecute any alcohol or drug abuse patient.[facility] ShawIn the event this information is protected by the Federal Confidentiality of Alcohol and Drug Abuse Patient Records regulations: The Federal rules restrict any use of the information to criminally investigate or prosecute any alcohol or drug abuse patient.[facility] ShawIn the event this information is protected by the Federal Confidentiality of Alcohol and Drug Abuse Patient Records regulations: The Federal rules restrict any use of the information to criminally investigate or prosecute any alcohol or drug abuse patient.[facility] ShawIn the event this information is protected by the Federal Confidentiality of Alcohol and Drug Abuse Patient Records regulations: The Federal rules restrict any use of the information to criminally investigate or prosecute any alcohol or drug abuse patient.[facility] ShawIn the event this information is protected by the Federal Confidentiality of Alcohol and Drug Abuse Patient Records regulations: The Federal rules restrict any use of the information to criminally investigate or prosecute any alcohol or drug abuse patient.[facility] ShawIn the event this information is protected by the Federal Confidentiality of Alcohol and Drug Abuse Patient Records regulations: The Federal rules restrict any use of the information to criminally investigate or prosecute any alcohol or drug abuse patient.[facility] ShawIn the event this information is protected by the Federal Confidentiality of Alcohol and Drug Abuse Patient Records regulations: The Federal rules restrict any use of the information to criminally investigate or prosecute any alcohol or drug abuse patient.[facility] ShawIn the event this information is protected by the Federal Confidentiality of Alcohol and Drug Abuse Patient Records regulations: The Federal rules restrict any use of the information to criminally investigate or prosecute any alcohol or drug abuse patient.[facility] ShawIn the event this information is protected by the Federal Confidentiality of Alcohol and Drug Abuse Patient Records regulations: The Federal rules restrict any use of the information to criminally investigate or prosecute any alcohol or drug abuse patient.[facility] ShawIn the event this information is protected by the Federal Confidentiality of Alcohol and Drug Abuse Patient Records regulations: The Federal rules restrict any use of the information to criminally investigate or prosecute any alcohol or drug abuse patient.[facility] ShawIn the event this information is protected by the Federal Confidentiality of Alcohol and Drug Abuse Patient Records regulations: The Federal rules restrict any use of the information to criminally investigate or prosecute any alcohol or drug abuse patient.[facility] ShawIn the event this information is protected by the Federal Confidentiality of Alcohol and Drug Abuse Patient Records regulations: The Federal rules restrict any use of the information to criminally investigate or prosecute any alcohol or drug abuse patient.[facility] ShawIn the event this information is protected by the Federal Confidentiality of Alcohol and Drug Abuse Patient Records regulations: The Federal rules restrict any use of the information to criminally investigate or prosecute any alcohol or drug abuse patient.[facility] ShawIn the event this information is protected by the Federal Confidentiality of Alcohol and Drug Abuse Patient Records regulations: The Federal rules restrict any use of the information to criminally investigate or prosecute any alcohol or drug abuse patient.[facility] ShawIn the event this information is protected by the Federal Confidentiality of Alcohol and Drug Abuse Patient Records regulations: The Federal rules restrict any use of the information to criminally investigate or prosecute any alcohol or drug abuse patient.[facility] ShawIn the event this information is protected by the Federal Confidentiality of Alcohol and Drug Abuse Patient Records regulations: The Federal rules restrict any use of the information to criminally investigate or prosecute any alcohol or drug abuse patient.[facility] ShawIn the event this information is protected by the Federal Confidentiality of Alcohol and Drug Abuse Patient Records regulations: The Federal rules restrict any use of the information to criminally investigate or prosecute any alcohol or drug abuse patient.[facility] ShawIn the event this information is protected by the Federal Confidentiality of Alcohol and Drug Abuse Patient Records regulations: The Federal rules restrict any use of the information to criminally investigate or prosecute any alcohol or drug abuse patient.[facility] ShawIn the event this information is protected by the Federal Confidentiality of Alcohol and Drug Abuse Patient Records regulations: The Federal rules restrict any use of the information to criminally investigate or prosecute any alcohol or drug abuse patient.[facility] ShawIn the event this information is protected by the Federal Confidentiality of Alcohol and Drug Abuse Patient Records regulations: The Federal rules restrict any use of the information to criminally investigate or prosecute any alcohol or drug abuse patient.[facility] ShawIn the event this information is protected by the Federal Confidentiality of Alcohol and Drug Abuse Patient Records regulations: The Federal rules restrict any use of the information to criminally investigate or prosecute any alcohol or drug abuse patient.[facility] ShawIn the event this information is protected by the Federal Confidentiality of Alcohol and Drug Abuse Patient Records regulations: The Federal rules restrict any use of the information to criminally investigate or prosecute any alcohol or drug abuse patient.[facility] ShawIn the event this information is protected by the Federal Confidentiality of Alcohol and Drug Abuse Patient Records regulations: The Federal rules restrict any use of the information to criminally investigate or prosecute any alcohol or drug abuse patient.[facility] ShawIn the event this information is protected by the Federal Confidentiality of Alcohol and Drug Abuse Patient Records regulations: The Federal rules restrict any use of the information to criminally investigate or prosecute any alcohol or drug abuse patient.[facility] ShawIn the event this information is protected by the Federal Confidentiality of Alcohol and Drug Abuse Patient Records regulations: The Federal rules restrict any use of the information to criminally investigate or prosecute any alcohol or drug abuse patient.[facility] ShawIn the event this information is protected by the Federal Confidentiality of Alcohol and Drug Abuse Patient Records regulations: The Federal rules restrict any use of the information to criminally investigate or prosecute any alcohol or drug abuse patient.[facility] ShawIn the event this information is protected by the Federal Confidentiality of Alcohol and Drug Abuse Patient Records regulations: The Federal rules restrict any use of the information to criminally investigate or prosecute any alcohol or drug abuse patient.[facility] ShawIn the event this information is protected by the Federal Confidentiality of Alcohol and Drug Abuse Patient Records regulations: The Federal rules restrict any use of the information to criminally investigate or prosecute any alcohol or drug abuse patient.[facility] ShawIn the event this information is protected by the Federal Confidentiality of Alcohol and Drug Abuse Patient Records regulations: The Federal rules restrict any use of the information to criminally investigate or prosecute any alcohol or drug abuse patient.[facility] ShawIn the event this information is protected by the Federal Confidentiality of Alcohol and Drug Abuse Patient Records regulations: The Federal rules restrict any use of the information to criminally investigate or prosecute any alcohol or drug abuse patient.[facility] ShawIn the event this information is protected by the Federal Confidentiality of Alcohol and Drug Abuse Patient Records regulations: The Federal rules restrict any use of the information to criminally investigate or prosecute any alcohol or drug abuse patient.[facility] ShawIn the event this information is protected by the Federal Confidentiality of Alcohol and Drug Abuse Patient Records regulations: The Federal rules restrict any use of the information to criminally investigate or prosecute any alcohol or drug abuse patient.[facility] ShawIn the event this information is protected by the Federal Confidentiality of Alcohol and Drug Abuse Patient Records regulations: The Federal rules restrict any use of the information to criminally investigate or prosecute any alcohol or drug abuse patient.[facility] ShawIn the event this information is protected by the Federal Confidentiality of Alcohol and Drug Abuse Patient Records regulations: The Federal rules restrict any use of the information to criminally investigate or prosecute any alcohol or drug abuse patient.[facility] ShawIn the event this information is protected by the Federal Confidentiality of Alcohol and Drug Abuse Patient Records regulations: The Federal rules restrict any use of the information to criminally investigate or prosecute any alcohol or drug abuse patient.[facility] ShawIn the event this information is protected by the Federal Confidentiality of Alcohol and Drug Abuse Patient Records regulations: The Federal rules restrict any use of the information to criminally investigate or prosecute any alcohol or drug abuse patient.[facility] ShawIn the event this information is protected by the Federal Confidentiality of Alcohol and Drug Abuse Patient Records regulations: The Federal rules restrict any use of the information to criminally investigate or prosecute any alcohol or drug abuse patient.[facility] ShawIn the event this information is protected by the Federal Confidentiality of Alcohol and Drug Abuse Patient Records regulations: The Federal rules restrict any use of the information to criminally investigate or prosecute any alcohol or drug abuse patient.[facility] ShawIn the event this information is protected by the Federal Confidentiality of Alcohol and Drug Abuse Patient Records regulations: The Federal rules restrict any use of the information to criminally investigate or prosecute any alcohol or drug abuse patient.[facility] ShawIn the event this information is protected by the Federal Confidentiality of Alcohol and Drug Abuse Patient Records regulations: The Federal rules restrict any use of the information to criminally investigate or prosecute any alcohol or drug abuse patient.[facility] ShawIn the event this information is protected by the Federal Confidentiality of Alcohol and Drug Abuse Patient Records regulations: The Federal rules restrict any use of the information to criminally investigate or prosecute any alcohol or drug abuse patient.[facility] ShawIn the event this information is protected by the Federal Confidentiality of Alcohol and Drug Abuse Patient Records regulations: The Federal rules restrict any use of the information to criminally investigate or prosecute any alcohol or drug abuse patient.[facility] ShawIn the event this information is protected by the Federal Confidentiality of Alcohol and Drug Abuse Patient Records regulations: The Federal rules restrict any use of the information to criminally investigate or prosecute any alcohol or drug abuse patient.[facility] ShawIn the event this information is protected by the Federal Confidentiality of Alcohol and Drug Abuse Patient Records regulations: The Federal rules restrict any use of the information to criminally investigate or prosecute any alcohol or drug abuse patient.[facility] ShawIn the event this information is protected by the Federal Confidentiality of Alcohol and Drug Abuse Patient Records regulations: The Federal rules restrict any use of the information to criminally investigate or prosecute any alcohol or drug abuse patient.[facility] ShawIn the event this information is protected by the Federal Confidentiality of Alcohol and Drug Abuse Patient Records regulations: The Federal rules restrict any use of the information to criminally investigate or prosecute any alcohol or drug abuse patient.[facility] ShawIn the event this information is protected by the Federal Confidentiality of Alcohol and Drug Abuse Patient Records regulations: The Federal rules restrict any use of the information to criminally investigate or prosecute any alcohol or drug abuse patient.[facility] ShawIn the event this information is protected by the Federal Confidentiality of Alcohol and Drug Abuse Patient Records regulations: The Federal rules restrict any use of the information to criminally investigate or prosecute any alcohol or drug abuse patient.[facility] ShawIn the event this information is protected by the Federal Confidentiality of Alcohol and Drug Abuse Patient Records regulations: The Federal rules restrict any use of the information to criminally investigate or prosecute any alcohol or drug abuse patient.[facility] ShawIn the event this information is protected by the Federal Confidentiality of Alcohol and Drug Abuse Patient Records regulations: The Federal rules restrict any use of the information to criminally investigate or prosecute any alcohol or drug abuse patient.[facility] ShawIn the event this information is protected by the Federal Confidentiality of Alcohol and Drug Abuse Patient Records regulations: The Federal rules restrict any use of the information to criminally investigate or prosecute any alcohol or drug abuse patient.[facility] ShawIn the event this information is protected by the Federal Confidentiality of Alcohol and Drug Abuse Patient Records regulations: The Federal rules restrict any use of the information to criminally investigate or prosecute any alcohol or drug abuse patient.[facility] ShawIn the event this information is protected by the Federal Confidentiality of Alcohol and Drug Abuse Patient Records regulations: The Federal rules restrict any use of the information to criminally investigate or prosecute any alcohol or drug abuse patient.[facility] ShawIn the event this information is protected by the Federal Confidentiality of Alcohol and Drug Abuse Patient Records regulations: The Federal rules restrict any use of the information to criminally investigate or prosecute any alcohol or drug abuse patient.[facility] ShawIn the event this information is protected by the Federal Confidentiality of Alcohol and Drug Abuse Patient Records regulations: The Federal rules restrict any use of the information to criminally investigate or prosecute any alcohol or drug abuse patient.[facility] ShawIn the event this information is protected by the Federal Confidentiality of Alcohol and Drug Abuse Patient Records regulations: The Federal rules restrict any use of the information to criminally investigate or prosecute any alcohol or drug abuse patient.[facility] ShawIn the event this information is protected by the Federal Confidentiality of Alcohol and Drug Abuse Patient Records regulations: The Federal rules restrict any use of the information to criminally investigate or prosecute any alcohol or drug abuse patient.[facility] ShawIn the event this information is protected by the Federal Confidentiality of Alcohol and Drug Abuse Patient Records regulations: The Federal rules restrict any use of the information to criminally investigate or prosecute any alcohol or drug abuse patient.[facility] ShawIn the event this information is protected by the Federal Confidentiality of Alcohol and Drug Abuse Patient Records regulations: The Federal rules restrict any use of the information to criminally investigate or prosecute any alcohol or drug abuse patient.[facility] ShawIn the event this information is protected by the Federal Confidentiality of Alcohol and Drug Abuse Patient Records regulations: The Federal rules restrict any use of the information to criminally investigate or prosecute any alcohol or drug abuse patient.[facility] ShawIn the event this information is protected by the Federal Confidentiality of Alcohol and Drug Abuse Patient Records regulations: The Federal rules restrict any use of the information to criminally investigate or prosecute any alcohol or drug abuse patient.[facility] ShawIn the event this information is protected by the Federal Confidentiality of Alcohol and Drug Abuse Patient Records regulations: The Federal rules restrict any use of the information to criminally investigate or prosecute any alcohol or drug abuse patient.[facility] ShawIn the event this information is protected by the Federal Confidentiality of Alcohol and Drug Abuse Patient Records regulations: The Federal rules restrict any use of the information to criminally investigate or prosecute any alcohol or drug abuse patient.[facility] ShawIn the event this information is protected by the Federal Confidentiality of Alcohol and Drug Abuse Patient Records regulations: The Federal rules restrict any use of the information to criminally investigate or prosecute any alcohol or drug abuse patient.[facility] ShawIn the event this information is protected by the Federal Confidentiality of Alcohol and Drug Abuse Patient Records regulations: The Federal rules restrict any use of the information to criminally investigate or prosecute any alcohol or drug abuse patient.[facility] ShawIn the event this information is protected by the Federal Confidentiality of Alcohol and Drug Abuse Patient Records regulations: The Federal rules restrict any use of the information to criminally investigate or prosecute any alcohol or drug abuse patient.[facility] ShawIn the event this information is protected by the Federal Confidentiality of Alcohol and Drug Abuse Patient Records regulations: The Federal rules restrict any use of the information to criminally investigate or prosecute any alcohol or drug abuse patient.[facility] ShawIn the event this information is protected by the Federal Confidentiality of Alcohol and Drug Abuse Patient Records regulations: The Federal rules restrict any use of the information to criminally investigate or prosecute any alcohol or drug abuse patient.[facility] ShawIn the event this information is protected by the Federal Confidentiality of Alcohol and Drug Abuse Patient Records regulations: The Federal rules restrict any use of the information to criminally investigate or prosecute any alcohol or drug abuse patient.[facility] ShawIn the event this information is protected by the Federal Confidentiality of Alcohol and Drug Abuse Patient Records regulations: The Federal rules restrict any use of the information to criminally investigate or prosecute any alcohol or drug abuse patient.[facility] ShawIn the event this information is protected by the Federal Confidentiality of Alcohol and Drug Abuse Patient Records regulations: The Federal rules restrict any use of the information to criminally investigate or prosecute any alcohol or drug abuse patient.[facility] Reason for Visit (unrecogniz ed section and content) Reason Comments Results Reason Comments urine culture Reason Onset Date Comments Refill Request 11/28/2021 Reason Comments Follow Up Specialty Diagnoses / Procedures Referred By Contac t Referred To Contact Family Practice / FAMILY MEDICINE Diagnoses 4 month f/u Procedures 4C EST Kristen Eugene PA-C [address] [place] [address] Carl Encarnacion MD [address] [place] [address] Referral ID Status Reason Start Date Expiration Date V isits Requested Visits Authorized [id number] New Request 12/12/2021 03/12/2022 1 1 Reason [...] EA 15 MIN. Kristen Eugene PA-C [address] [place] [address] [facility] [address] [place] [address] Referral ID Status Reason Start Date Expiration Date Visits Requested Visits Authorized [id number] Authorized Auto-Generat ed Referral 08/09/2022 08/08/2023 20 20 Reason Onset Date Comments Refill Request 02/08/2023 Reason Comments Referral Information Reason Comments Pre op instructions Reason Comments Results Reason Comments Appointment Reason Comments Patient Update Reason Comments Anesthesia Consult Preop evaluation Reason Comments home health calling Reason Comments Post Op Reason Comments Nursing Plan of Care Reason Comments Clinical Education Assistant - Other Introduction Reason Comments New Patient Specialty Diagnoses / Procedures Referred By Contac t Referred To Contact Diagnoses 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 (HCC) Procedures CONSULT TO HEMATOLOGY/ONCOLOGY OFFICE/OUTPATIENT NEW HIGH MDM 60-74 MINUTES Annmarie Mendoza, TABLEMAN.ORTHOPEDIC NURSE [address] [place] [address] Wilmar Forbes, [address] [place] [address] Referral ID Status Reason Start Date Expiration Date Visits Requested Visits Authorized [id number] Pending Review PCP Requested Referral 05/03/2023 05/02/2024 1 1 Reason Comments First Time Treatment Education Carboplat in Reason Comments AVS 06/02/23, CHEMO START Reason Onset Date Comments Refill Request 06/07/2023 Reason Comments Clinical Education Assistant - Other Orders Reason Comments Clinical Education Assistant - Other C1D1 Post Treat ment Call (Carboplatin) Reason Comments Medication Problem Reason Comments Radiology CT Specialty Diagnoses / Procedures Referred By Bella cobian Referred To Contact CT IMAGING Diagnoses Pelvic mass Procedures CT ABD/PEL W IVCON CT ABD & PELVIS W/CONTRAST Carl Encarnacion MD [address] [place] [address] [place] [id number] Referral ID Status Reason Start Date Expiration Date V isits Requested Visits Authorized [id number] Closed Auto-Generate d Referral 02/26/2023 03/27/2024 1 1 Reason Comments Clinical Education Assistant - Other Toxicity Check (Carboplatin) Reason Comments Established Patient Reason Onset Date Comments Refill Request 10/07/2023 Reason Comments Hospital Admission Reason Onset Date Comments Refill Request 12/06/2023 Reason Comments [facility]-verbal ordes requeted Reason Comments ER F/U Seen 11/22 at [facility] for fall at home and admitted for Rhabdomyolysis Reason Comments Patient Update from PT [facility] Reason Comments Ext / Discharge Summary Reason Onset Date Comments Refill Request 01/04/2024 Reason Comments OT Update Reason Comments Outside Heart Cath Reason Onset Date Comments Refill Request 02/15/2024 Care Teams (unrecognized sec tion and content) Inside Sales Trainer Relationship Specialty Start Date End Date Carl Encarnacion MD [address] [place] [address] PCP - General Family Practice 03/12/15 Inside Sales Trainer Relationship Specialty Start Date End Date Carl Encarnacion MD [address] [place] [address] PCP - General Family Practice 03/12/15 Inside Sales Trainer Relationship Specialty Start Date End Date Carl Encarnacion MD [address] [place] [address] PCP - General Family Practice 03/12/15 Inside Sales Trainer Relationship Specialty Start Date End Date Carl Encarnacion MD [address] [place] [address] PCP - General Family Practice 03/12/15 Inside Sales Trainer Relationship Specialty Start Date End Date Carl Encarnacion MD [address] [place] [address] PCP - General Family Practice 03/12/15 Inside Sales Trainer Relationship Specialty Start Date End Date Carl Encarnacion MD [address] [facility] [place] [address] PCP - General Family Medicine 03/12/15 Inside Sales Trainer Relationship Specialty Start Date End Date Carl Encarnacion MD [address] [facility] [address] PCP - General Family Medicine 03/12/15 Inside Sales Trainer Relationship Specialty Start Date End Date Cral Encarnacion MD [address] [place] [address], [place] [address] PCP - General Family Medicine 03/12/15 Inside Sales Trainer Relationship Specialty Start Date End Date Carl Encarnacion MD [address] [place] [address], [place] [address] PCP - General Family Medicine 03/12/15 Inside Sales Trainer Relationship Specialty Start Date End Date Carl Encarnacion MD [address] [place] [address], [place] [address] PCP - General Family Medicine 03/12/15 Inside Sales Trainer Relationship Specialty Start Date End Date Carl Encarnacion MD [address] [place] [address], [place] [address] PCP - General Family Medicine 03/12/15 Inside Sales Trainer Relationship Specialty Start Date End Date Carl Encarnacion MD [address] [place] [address], [place] [address] PCP - General Family Medicine 03/12/15 Inside Sales Trainer Relationship Specialty Start Date End Date Carl Encarnacion MD [address] [place] [address], [place] [address] PCP - General Family Medicine 03/12/15 Inside Sales Trainer Relationship Specialty Start Date End Date Carl Encarnacion MD [address] [facility] [place] [address] PCP - General Family Medicine 03/12/15 Inside Sales Trainer Relationship Specialty Start Date End Date Carl Encarnacion MD [address] [facility] [place] [address] PCP - General Family Medicine 03/12/15 Team Status: Active Member Role Status Dates Raciel Zuleta Family Provider Active Dr. Carl Encarnacion MD Primary Care Provider Active Team Status: Inactive Member Role Status Dates Dr. Carl Encarnacion MD Primary Care Provider Active Dr. Abdiel Shaikh , Emergency Provider Active Inside Sales Trainer Relationship Specialty Start Date End Date Carl Encarnacion MD [address] [facility] [place] [address] PCP - General Family Medicine 03/12/15 Inside Sales Trainer Relationship Specialty Start Date End Date Carl Encarnacion MD [address] [place] [address] PCP - General Family Medicine 03/12/15 Inside Sales Trainer Relationship Specialty Start Date End Date Carl Encarnacion MD [address] [facility] [place] [place] [address] PCP - General Family Medicine 03/12/15 Inside Sales Trainer Relationship Specialty Start Date End Date Carl Encarnacion MD [address] [facility] [place] [place] [address] PCP - General Family Medicine 03/12/15 Inside Sales Trainer Relationship Specialty Start Date End Date Carl Encarnacion MD [address] [place] [address] PCP - General Family Medicine 03/12/15 Team Status: Inactive Member Role Status Dates Dr. Carl Encarnacion MD Primary Care Provider Active Dr. Abdiel Shaikh DO Attending Provider, Emergency P lena Active Team Status: Inactive Member Role Status Dates Dr. Carl Encarnacion MD Primary Care Provider Active Dr. Carl Hawkins DO Attending Provider, Referring Doris paredes Active Inside Sales Trainer Relationship Specialty Start Date End Date Carl Encarnacion MD [address] [place] [address] PCP - General Family Medicine 03/12/15 Inside Sales Trainer Relationship Specialty Start Date End Date Carl Encarnacion MD [address] [place] [address] PCP - General Family Medicine 03/12/15 Inside Sales Trainer Relationship Specialty Start Date End Date Carl Encarnacion MD [address] [place] [address] PCP - General Family Medicine 03/12/15 Inside Sales Trainer Relationship Specialty Start Date End Date Carl Encarnacion MD [address] [place] [address] PCP - General Family Medicine 03/12/15 Inside Sales Trainer Relationship Specialty Start Date End Date Carl Encarnacion MD [address] [place] [address] PCP - General Family Medicine 03/12/15 Inside Sales Trainer Relationship Specialty Start Date End Date Carl Encarnacion MD [address] [place] [address] PCP - General Family Medicine 03/12/15 Inside Sales Trainer Relationship Specialty Start Date End Date Carl Encarnacion MD [address] [place] [address] PCP - General Family Medicine 03/12/15 Inside Sales Trainer Relationship Specialty Start Date End Date Carl Encarnacion MD [address] [place] [address] PCP - General Family Medicine 03/12/15 Inside Sales Trainer Relationship Specialty Start Date End Date Carl Encarnacion MD [address] [place] [address] PCP - General Family Medicine 03/12/15 Inside Sales Trainer Relationship Specialty Start Date End Date Carl Encarnacion MD [address] [place] [address] PCP - General Family Medicine 03/12/15 Inside Sales Trainer Relationship Specialty Start Date End Date Carl Encarnacion MD [address] [place] [address] PCP - General Family Medicine 03/12/15 Inside Sales Trainer Relationship Specialty Start Date End Date Carl Encarnacion MD [address] [place] [address] PCP - General Family Medicine 03/12/15 Inside Sales Trainer Relationship Specialty Start Date End Date Carl Encarnacion MD [address] [place] [address] PCP - General Family Medicine 03/12/15 Inside Sales Trainer Relationship Specialty Start Date End Date Carl Encarnacion MD [address] [place] [address] PCP - General Family Medicine 03/12/15 Inside Sales Trainer Relationship Specialty Start Date End Date Carl Encarnacion MD [address] [place] [address] PCP - General Family Medicine 03/12/15 Inside Sales Trainer Relationship Specialty Start Date End Date Carl Encarnacion MD [address] [facility] [place] [address] PCP - General Family Medicine 03/12/15 Korin Mantilla RN Specialty Clinical Education Assistant Oncology 06/07/23 Wilmar Forbes DO [address] [facility] [place] [address] Hematology/Oncology 06/07/23 Inside Sales Trainer Relationship Specialty Start Date End Date Carl Encarnacion MD [address] [facility] [place] [place] [address] PCP - General Family Medicine 03/12/15 Korin Mantilla RN Specialty Clinical Education Assistant Oncology 06/07/23 Wilmar Forbes DO [address] [facility] [address] Hematology/Oncology 06/07/23 Inside Sales Trainer Relationship Specialty Start Date End Date Carl Encarnacion MD [address] [facility] [place] [address] PCP - General Family Medicine 03/12/15 Korin Mantilla RN Specialty Clinical Education Assistant Oncology 06/07/23 Wilmar Forbes DO [address] [place] [address] Hematology/Oncology 06/07/23 Inside Sales Trainer Relationship Specialty Start Date End Date Carl Encarnacion MD [address] [facility] [place] [address] PCP - General Family Medicine 03/12/15 Korin Mantilla RN Specialty Clinical Education Assistant Oncology 06/07/23 Wilmar Forbes DO [address] [place] [address] Hematology/Oncology 06/07/23 Inside Sales Trainer Relationship Specialty Start Date End Date Carl Encarnacion MD [address] [facility] [place] [place] [address] PCP - General Family Medicine 03/12/15 Inside Sales Trainer Relationship Specialty Start Date End Date Carl Encarnacion MD [address] [facility] [place] [address] PCP - General Family Medicine 03/12/15 Inside Sales Trainer Relationship Specialty Start Date End Date Carl Encarnacion MD [address] [place] [address] PCP - General Family Medicine 03/12/15 Inside Sales Trainer Relationship Specialty Start Date End Date Carl Encarnacion MD [address] [place] [address] PCP - General Family Medicine 03/12/15 Korin Mantilla RN Specialty Clinical Education Assistant Oncology 06/07/23 Wilmar Forbes DO [address] [place] [address] Hematology/Oncology 06/07/23 Inside Sales Trainer Relationship Specialty Start Date End Date Carl Encarnacion MD [address] [place] [address] PCP - General Family Medicine 03/12/15 Korin Mantilla RN Specialty Clinical Education Assistant Oncology 06/07/23 Wilmar Forbes DO [address] [place] [address] Hematology/Oncology 06/07/23 Inside Sales Trainer Relationship Specialty Start Date End Date Carl Encarnacion MD [address] [facility] [place] [place] [address] PCP - General Family Medicine 03/12/15 Korin Mantilla RN Specialty Clinical Education Assistant Oncology 06/07/23 Wilmar Forbes DO [address] [place] [address] Hematology/Oncology 06/07/23 Inside Sales Trainer Relationship Specialty Start Date End Date Carl Encarnacion MD [address] [facility] [place] [place] [address] PCP - General Family Medicine 03/12/15 Korin Mantilla RN Specialty Clinical Education Assistant Oncology 06/07/23 Wilmar Forbes DO [address] [place] [address] Hematology/Oncology 06/07/23 Inside Sales Trainer Relationship Specialty Start Date End Date Carl Encarnacion MD [address] [facility] [place] [place] [address] PCP - General Family Medicine 03/12/15 Korin Mantilla RN Specialty Clinical Education Assistant Oncology 06/07/23 Wilmar Forbes DO [address] [place] [address] Hematology/Oncology 06/07/23 Team Status: Active Member Role Status Dates Dr. Carl Encarnacion MD Primary Care Provider Active Dr. Smith Ho MD Emergency Provider Active Dr. Kelby Aguilar DO Admit Provider, Attending Provider Active Inside Sales Trainer Relationship Specialty Start Date End Date Carl Encarnacion MD [address] [facility] [place] [address] PCP - General Family Medicine 03/12/15 Korin Mantilla RN Specialty Clinical Education Assistant Oncology 06/07/23 Wilmar Forbes DO [address] [place] [address] Hematology/Oncology 06/07/23 Team Status: Active Member Role Status Dates Dr. Carl Encarnacion MD Primary Care Provider Active Dr. Smith Ho MD Emergency Provider Active Dr. Kelby Aguilar , Admit Provi wood, Attending Provider, Other Provider Active Team Status: Inactive Member Role Status Dates Dr. Carl Encarnacion MD Primary Care Provider Active Dr. Smith Ho MD Emergency Provider Active Dr. Kelby Aguilar DO Admit Provider, Attending Provider Active Inside Sales Trainer Relationship Specialty Start Date End Date Carl Encarnacion MD [address] [place] [address] PCP - General Family Medicine 03/12/15 Korin Mantilla RN Specialty Clinical Education Assistant Oncology 06/07/23 Wilmar Forbes DO [address] [place] [address] Hematology/Oncology 06/07/23 Inside Sales Trainer Relationship Specialty Start Date End Date Carl Encarnacion MD [address] [place] [address] PCP - General Family Medicine 03/12/15 Korin Mantilla RN Specialty Clinical Education Assistant Oncology 06/07/23 Wilmar Forbes DO [address] [place] [address] Hematology/Oncology 06/07/23 Inside Sales Trainer Relationship Specialty Start Date End Date Carl Encarnacion MD [address] [place] [address] PCP - General Family Medicine 03/12/15 Korin Mantilla RN Specialty Clinical Education Assistant Oncology 06/07/23 Wilmar Forbes DO [address] [facility] [place] [place], [place] [address] Hematology/Oncology 06/07/23 Inside Sales Trainer Relationship Specialty Start Date End Date Carl Encarnacion MD [address] [facility], [place] [address] PCP - General Family Medicine 03/12/15 Korin Mantilla RN Specialty Clinical Education Assistant Oncology 06/07/23 Wilmar Forbes DO [address] [place], [place] [address] Hematology/Oncology 06/07/23 Inside Sales Trainer Relationship Specialty Start Date End Date Carl Encarnacion MD [address] [place], [place] [address] PCP - General Family Medicine 03/12/15 Team Status: Active Member Role Status Dates Dr. Carl Encarnacion MD Primary Care Provider Active Start: August 07, 2024 Lasha VASQUEZ MD Attending Provider Active Start: August 07, 2024 Team Status: Inactive Member Role Status Dates Dr. Carl Encarnacion MD Primary Care Provider Active Start: August 11, 2024 End: August 11, 2024 Savi Tavares MANAGER PUBLISHING, MANAGER PUBLISHING-C Attending Provider Active Start: August 11, 2024 [...] 2024 End: September 27, 2024 Savi Tavares MANAGER PUBLISHING, MANAGER PUBLISHING-C Attending Provider Active Start: September 27, 2024 [...] 07, 2024 End: November 07, 2024 Dr. Lsaha Pro MD Attending Provider Active Start: November 07, 2024 End: November 07, 2024 Team Status: Inactive Member Role/Relationship Status Dates Dr. Carl Encarnacion MD Primary Care Provider Active Start: November 17, 2024 End: November 17, 2024 Savi Tavares NP MANAGER PUBLISHING-C Attending Provider Active Start: November 17, 2024 End: November 17, 2024 Team Status: Inactive Member Role/Relationship Status Dates Dr. Carl Encarnacion MD Primary Care Provider Active Start: November 22, 2024 End: November 22, 2024 Savi Tavares NP MANAGER PUBLISHING-C Attending Provider Active Start: November 22, 2024 [...] 2024 End: December 05, 2024 Savi Tavares MANAGER PUBLISHING, MANAGER PUBLISHING-C Attending Provider Active Start: December 05, 2024 [...] End: November 17, 2024 Savi Tavares NP, MANAGER PUBLISHING-C Attending Provider Active Start: November 17, 2024 End: November 17, 2024 Team Status: Inactive Member Role/Relationship Status Dates Dr. Carl Encarnacion MD Primary Care Provider Active Start: November 22, 2024 End: November 22, 2024 Savi Tavares MANAGER PUBLISHING, MANAGER PUBLISHING-C Attending Provider Active Start: November 22, 2024 [...] 2024 End: December 04, 2024 Dr. Hector Anedrson MD Attending Provider Active S tart: December [...] 2024 End: December 05, 2024 Savi Tavares MANAGER PUBLISHING MANAGER PUBLISHING-C Attending Provider Active Start: December 05, 2024 [...] End: December 11, 2024 Savi Tavares NP MANAGER PUBLISHING-C Attending Provider Active Start: December 11, 2024 [...] 2024 End: November 22, 2024 Savi Tavares MANAGER PUBLISHING, MANAGER PUBLISHING-C Attending Provider Active Start: November 22, 2024 [...] End: December 05, 2024 Savi Tavares NP, MANAGER PUBLISHING-C Attending Provider Active Start: December 05, 2024 [...] 11, 2024 End: December 11, 2024 Savi Tickton MANAGER PUBLISHING, MANAGER PUBLISHING-C Attending Provider Active Start: December 11, 2024 [...] 2024 End: December 05, 2024 Savi Tavares MANAGER PUBLISHING, MANAGER PUBLISHING-C Attending Provider Active Start: December 05, 2024 [...] 2024 End: December 11, 2024 Savi Tavares MANAGER PUBLISHING, MANAGER PUBLISHING-C Attending Provider Active Start: December 11, 2024 [...] March 20, 2025 End: March 20, 2025 Team Status: Active Member Role/Relationship Status Dates Raciel Zuleta Primary care physician Active Dr. Carl Encarnacion MD Primary care physician Active Team Status: Active Member Role/Relationship Status Dates Dr. Carl Encarnacion MD Primary care physician Active Start: January 18, 2025 Lasha VASQUEZ MD Attending physician Active Start: January 18, 2025 Team Status: Inactive Member Role/Relationship Status Dates Dr. Carl Encarnacion MD Primary care physician Active Start: January 22, 2025 End: January 22, 2025 Lasha VASQUEZ MD Attending physician Active Start: January 22, 2025 End: January 22, 2025 Team Status: Active Member Role/Relationship Status Dates Dr. Carl Encarnacion MD Primary care physician Active Start: February 12, 2025 Lasha VASQUEZ MD Attending physician Active Start: February 12, 2025 Team Status: Active Member Role/Relationship Status Dates Dr. Carl Encarnacion MD Primary care physician Active Start: February 19, 2025 Lasha VASQUEZ MD Attending physician Active Start: February 19, 2025 Team Status: Inactive Member Role/Relationship Status Dates Dr. Carl Encarnacion MD Primary care physician Active Start: March 01, 2025 End: March 01, 2025 DANIELLE Mejia Attending physician Active S tart: March 01, 2025 End: March 01, 2025 Team Status: Active Member Role/Relationship Status Dates Dr. Carl Encarnacion MD Primary care physician Active Start: March 05, 2025 Lasha VASQUEZ MD Attending physician Active Start: March 05, 2025 Lasha VASQUEZ MD Referring Provider Active Start: March 05, 2025 Team Status: Inactive Member Role/Relationship Status Dates Dr. Carl Encarnacion MD Primary care physician Active Start: March 20, 2025 End: March 20, 2025 Dr. Lasha Pro MD Attending physician Active Start: March 20, 2025 End: March 20, 2025 Team Status: Active Member Role/Relationship Status Dates Dr. Carl Encarnacion MD Primary care physician Active Start: April 16, 2025 Lasha VASQUEZ MD Attending physician Active Start: April 16, 2025 Team Status: Inactive Member Role/Relationship Status Dates Dr. Carl Encarnacion MD Primary care physician Active Start: February 19, 2025 End: February 19, 2025 Lasha VASQUEZ MD Attending physician Active Start: February 19, 2025 End: February 19, 2025 Team Status: Active Member Role/Relationship Status Dates Dr. Carl Encarnacion MD Primary care physician Active Start: February 12, 2025 Lasha VASQUEZ MD Attending physician Active Start: February 12, 2025 Team Status: Inactive Member Role/Relationship Status Dates Dr. Carl Encarnacion MD Primary care physician Active Start: February 19, 2025 End: February 19, 2025 Lasha VASQUEZ MD Attending physician Active Start: February 19, 2025 End: February 19, 2025 Team Status: Inactive Member Role/Relationship Status Dates Dr. Carl Encarnacion MD Primary care physician Active Start: March 01, 2025 End: March 01, 2025 DANIELLE Mejia Attending physician Active S tart: March 01, 2025 End: March 01, 2025 Team Status: Active Member Role/Relationship Status Dates Dr. Carl Encarnacion MD Primary care physician Active Start: March 05, 2025 Lasha VASQUEZ MD Attending physician Active Start: March 05, 2025 Lasha VASQUEZ MD Referring Provider Active Start: March 05, 2025 Team Status: Inactive Member Role/Relationship Status Dates Dr. Carl Encarnacion MD Primary care physician Active Start: March 20, 2025 End: March 20, 2025 Dr. Lasha Pro MD Attending physician Active Start: March 20, 2025 End: March 20, 2025 Team Status: Active Member Role/Relationship Status Dates Dr. Carl Encarnacion MD Primary care physician Active Start: April 16, 2025 Lasha VASQUEZ MD Attending physician Active Start: April 16, 2025 Team Status: Inactive Member Role/Relationship Status Dates Dr. Carl Encarnacion MD Primary care physician Active Start: April 20, 2025 End: April 20, 2025 Savi Tavares MANAGER PUBLISHING, MANAGER [employer] Attending physician Active Start: April 20, 2025 End: April 20, 2025 Team Status: Active Member Role/Relationship Status Dates Dr. Carl Encarnacion MD Primary care physician Active Start: May 28, 2025 Lasha VASQUEZ MD Attending physician Active Start: May 28, 2025 Lasha VASQUEZ MD Referring Provider Active Start: May 28, 2025 Goals (unrecognized section and content) Goals [...] section and content) DATE CREATED AUTHOR 03/25/2023 [facility] DATE CREATED AUTHOR AUTHOR'S ORGANIZ ATION 01/22/2024 [facility] DATE CREATED AUTHOR AUTHOR'S ORGANIZ ATION 03/27/2024 [facility] DATE CREATED AUTHOR AUTHOR'S ORGANIZ ATION 04/06/2024 [facility] ([place]) DATE CREATED AUTHOR AUTHOR'S ORGANIZ ATION 08/21/2024 [facility] DATE CREATED AUTHOR AUTHOR'S ORGANIZ ATION 06/20/2025 [facility] FOR RECORDS PERTAINING TO PATIENTS WHO [...] BE BASED ON THE PRIMARY CLINICAL RECORDS. [facility] [employer] [facility]. provides no warranty or guarantee of the accuracy or completeness of information in this document.
[2025-07-09 08:27] LABS: Cholesterol 148 mg/dL (<=200); Low Density Lipoprotein Calc. 49 mg/dL; Triglycerides 131 mg/dL; Very Low Density Lipoprotein 26 mg/dL (5-40); cholesterol:hdl ratio screen 1.94
== END ==
LOC: OLS.WHLEAS 05:00
PROVIDERS: PCP Family Medicine; Visit Provider Internal Medicine
DX: E03.9 Hypothyroidism, unspecified (principal); I10 Essential (primary) hypertension; E78.5 Hyperlipidemia, unspecified; E88.09 Other disorders of plasma-protein metabolism, not elsewhere classified
CPT/HCPCS: 36415; 80061; 84443